=== PATIENT | male | born 1960 | race Caucasian/White ===

== ENCOUNTER 2020-03-23 15:39 | Inpatient (IN) | payer OTHER, SELFPAY ==
--- NOTE | 2020-03-23 15:43 | CT_ITS ---
EXAMINATION: CT HEAD WITHOUT CONTRAST (STROKE PROTOCOL) CLINICAL INFORMATION: Stroke protocol. Headache. TIA symptoms resolved. COMPARISON: March 11, 2016 TECHNIQUE: Contiguous axial imaging was performed from the skull base to vertex without intravenous administration of contrast. This CT examination was performed using dose optimization techniques as appropriate, variously including the following: *Automated exposure control *Adjustment of mA and/or kV according to patient size (this includes techniques or standardized protocols for targeted exams where dose is matched to indication/reason for exam; i.e. extremities or head) *Use of iterative reconstruction technique DLP: 1068 mGy-cm FINDINGS: There is no intracranial hemorrhage, hematoma, or extra-axial fluid collection. There is prominence of ventricles, sulci, and cisterns consistent with some degree of generalized atrophy. There is a old chronic left cerebellar infarct. Since study of 2015 there is a new region of diminished density with loss of drew-white matter interface involving the posterior left parietal lobe which could represent an acute evolving infarct.. No significant mass effect or midline structure shift.. There is periventricular white matter low density consistent with microangiopathy. The calvarium appears intact. There is no pneumocephalus or orbital emphysema. The visualized sinuses and middle ears and mastoid air cells show no significant mucosal thickening. There are no air-fluid levels. IMPRESSION: New region of low density with loss of drew-white matter interface involving the left posterior parietal lobe without significant mass effect since study of March 11, 2016 which may represent an evolving infarct This critical result was discussed with Dr. Burleson at 4:00 PM hours on March 23, 2020. It was ascertained that the content and urgency of the report was understood at the time of direct communication.
--- NOTE | 2020-03-23 15:43 | ECG_ITS ---
Test Reason : ? STROKE Blood Pressure : / mmHG Vent. Rate : 079 BPM Atrial Rate : 079 BPM P-R Int : 208 ms QRS Dur : 160 ms QT Int : 422 ms P-R-T Axes : 059 -84 014 degrees QTc Int : 483 ms Normal sinus rhythm Right bundle branch block Left anterior fascicular block Bifascicular block Abnormal ECG Premature atrial complexes is no longer Present Referred By: Jamison Burleson Electronically Signed By:YAYO SAUNDERS MD
[2020-03-23 16:11] LABS: Glucose, Whole Blood 312 mg/dL (60-115)
[2020-03-23 16:12] VITALS: BP 134/63; PULSE 82; RESP 16; TEMP 36.8; O2SAT 94; BMI 50.1
[2020-03-23 16:12] LABS: Prothrombin Time Whole Bld POC 12.3 sec (11.1-13.5)
--- NOTE | 2020-03-23 16:21 | ED.NEUROSD ---
HPI - Neuro Symptoms/Deficit General Chief Complaint: Stroke Stated Complaint: ?stroke, headache Time Seen by Provider: 03/23/20 15:43 Source: patient Mode of arrival: EMS Limitations: no limitations History of Present Illness HPI Narrative: Patient comes to the emergency room complaining of slurry speech and left-sided body weakness starting between 1 and 13:30 today. Patient states he was on the phone, and noticed a sudden onset of slurry speech. Patient hung up the phone, then tried to get off his couch and noticed that he had weakness in his left arm and left leg. Patient sat on the couch, called for his son. Patient states at home for couple of hours hoping that the symptoms would resolve. The symptoms did improve, patient was able to move his arm and leg, slurry speech did improve but the symptoms were not fully resolve, therefore came to the hospital Via EMS. at this time, Related Data Home Medications Medication Instructions Recorded Confirmed atorvastatin 20 mg PO DAILY 03/23/20 03/23/20 cholecalciferol (vitamin D3) 50 mcg PO DAILY 03/23/20 03/23/20 clopidogrel 75 mg PO DAILY 03/23/20 03/23/20 cyanocobalamin (vitamin B-12) 1,000 mcg PO DAILY 03/23/20 03/23/20 [Vitamin B-12] duloxetine 30 mg PO BID 03/23/20 03/23/20 furosemide 40 mg PO BID 03/23/20 03/23/20 hydroxyzine HCl 25 mg PO TID PRN 03/23/20 03/23/20 isosorbide mononitrate 60 mg PO QAM 03/23/20 03/23/20 lisinopril 40 mg PO DAILY 03/23/20 03/23/20 lorazepam 2 mg PO TID PRN 03/23/20 03/23/20 metformin 1,000 mg PO QAM 03/23/20 03/23/20 metoprolol succinate 50 mg PO DAILY 03/23/20 03/23/20 nystatin [Nyamyc] 100,000 unit TOPICAL BID 03/23/20 03/23/20 pantoprazole 40 mg PO DAILY 03/23/20 03/23/20 phenytoin sodium extended 200 mg PO DAILY 03/23/20 03/23/20 phenytoin sodium extended 400 mg PO BEDTIME 03/23/20 03/23/20 quetiapine 50 mg PO DAILY 03/23/20 03/23/20 spironolactone 25 mg PO DAILY 03/23/20 03/23/20 trazodone 100 mg PO BEDTIME 03/23/20 03/23/20 Allergies Allergy/AdvReac Type Severity Reaction Status Date / Time aspirin Allergy Severe OCCASIONAL Unverified 02/21/20 14:42 RASH / TONGUE SWELLING, Hives, throat swellig Penicillins Allergy Severe ANAPHYLAXIS Unverified 02/21/20 14:42 clindamycin Allergy Mild RASH Unverified 02/21/20 14:42 Iodinated Contrast Media Allergy Mild RASH Unverified 02/21/20 14:42 [Iodinated Contrast Media - IV Dye] latex [Latex] Allergy Mild RASH Unverified 02/21/20 14:42 amoxicillin Allergy Unknown Verified 09/22/15 00:00 bee pollen [BEE STINGS] Allergy Unknown ANAPHYLAXIS Unverified 02/21/20 14:42 penicillin V Allergy Unknown Unverified 07/03/19 00:00 povidone-iodine [Betadine] Allergy Unknown Verified 09/22/15 00:00 soap [Betadine] Allergy Unknown Verified 09/22/15 00:00 spider venom [SPIDER BITES] Allergy Unknown UNKNOWN Unverified 02/21/20 14:42 bupropion [From WELLBUTRIN] AdvReac Unknown SEIZURES Unverified 02/21/20 14:42 Latex Allergy Unknown Uncoded 09/22/15 00:00 Latex Gloves Allergy Unknown Uncoded 07/03/19 00:00 TAPE Allergy Unknown Uncoded 09/22/15 00:00 Review of Systems Review of Systems: Yes all other systems are reviewed and are negative Neurologic: Comments: complaining of slurry speech, heavy tongue sensation, left upper and lower extremity weakness PMFSH Past Medical History Medical History (Updated 03/23/20 @ 22:13 by Sarmad Rivera MD) Anxiety Arthritis Asthma Coronary artery disease Diabetes mellitus, type 2 Hypertension PTSD (post-traumatic stress disorder) Social History Social History Household Members: None Housing: Apartment Do you presently have visiting nurse or other home services: Yes (home health aide) Alcohol intake: current Alcohol intake frequency: holidays/special occasions only Smoking Status: Former smoker Tobacco Type: Cigarette Smoked in Last 30 Days: No Patient Interested in Nicotine Replacement: No Patient Given Instructions on How to Stop Smoking: No Second Hand Smoke Exposure: No Use of substances other than those prescribed or required for medical reasons: No Have you been hit, kicked, punched, or otherwise hurt by someone within the past year? If so, by whom?: No Do you feel safe in your current relationship?: No Current Relationship Is there a partner from a previous relationship who is making you feel unsafe now?: No Are you made to feel afraid or neglected: No Religion Healthcare Practices: alevism Advance Directives: No Advance Directives Information Provided: No Advance Directives on File: No Do you have thoughts of harming others: None Do you have a plan to hurt others: No Plan Recently lost weight without trying: No Physical Exam Vital Signs: Vital Signs: Vital Signs Temp Pulse Resp BP Pulse Ox 03/23/20 21:44 70 16 121/49 L 03/23/20 20:47 97.9 F 66 21 H 122/67 94 03/23/20 19:12 73 20 137/76 93 03/23/20 17:38 81 20 113/61 95 03/23/20 16:12 98.2 F 82 16 134/63 94 Body Mass Index 50.1 Const: General: cooperative Orientation/consciousness: oriented to person, oriented to place and oriented to time HENMT: Head: Yes normal to inspection Eyes: General: appearance normal, both eyes and all related structures Neck: Neck: Yes normal visual inspection Chest: Chest palpation & inspection: normal inspection of the chest Resp: Effort & Inspection: normal respiratory effort GI: Inspection: Yes normal to inspection : General: Yes no CVA tenderness Back/Spine/Pelvis: Back: no CVA tenderness Skin: General skin exam: no rashes or lesions noted Neuro: Other: patient has strength 4/5 in left upper extremity, 5/5 right upper extremity, normal strength in bilateral lower extremities, patient has a positive pronator drift on the left side General: oriented to person, oriented to place and oriented to time Extrem: General: Yes normal to inspection Psych: Appearance: grossly normal Course Course Course Narrative: I discussed the patient with Dr. Villatoro. At this time, tPA is not advised. CTA recommended. Patient states that he is allergic to the contrast, MRI was attempted, however due to the patient's weight, the MRI cannot be done. I discussed with the patient his allergies to the contrast, states he has hives. I discussed with the patient that this is the only way now the weekend tries to see if there is any blood clot causing his neurological symptoms. I offered pre treatment prior to IV contrast, patient agreed to plan. Patient being premedicated for CT a period due to system failure, the CTA has been delayed. patient stable, no worsening symptoms. Patient alert and oriented MDM - Neuro Symptoms/Deficit MDM Narrative Medical decision making narrative: disucussed with Neurology the patient's CT scan in symptoms, at this time, tPA is not advised. CT of head: New region of low density with loss of drew white matter interface involving the left posterior parietal lobe without significant mass effect CTA of head and neck: No proximal occlusion or flow-limiting stenosis, regions of encephalomalacia within the left parietal temporal lobes and right occipital lobe, no acute intracranial hemorrhage I discussed the patient with our hospitalist, patient being admitted EKG: Normal sinus, heart rate 79, QTC 483, left anterior bifascicular block Differential Diagnosis Differential diagnosis: Likely subarachnoid hemorrhage, cerebrovascular accident and transient cerebral ischemia Medical Records Attestation: I reviewed the patient's medical records. Lab Data Attestation: I reviewed the patient's lab results. Result diagrams: 03/23/20 16:06 03/23/20 16:06 Labs: Lab Results 03/23/20 03/23/20 03/23/20 Range/Units 15:48 16:00 16:06 WBC 7.6 (4.8-10.8) X10*3/uL RBC 4.80 (4.60-5.80) X10*6/uL Hgb 11.0 L (14.0-18.0) g/dl Hct 37.0 L (42-52) % MCV 77.1 L (80-98) fL MCH 22.9 L (27.0-33.0) pg MCHC 29.7 L (31.0-36.0) g/dl RDW 15.4 (11.0-16.0) % Plt Count 287 (160-400) X10*3/uL MPV 10.2 (9.4-12.4) fL Absolute Nucleated RBC 0.000 (0.0-0.012) X10*3/uL Nucleated RBC % (auto) 0.0 (0.0-0.2) /100WBC PT (10.8-13.0) SEC Whole Blood PT 12.3 (11.1-13.5) sec INR (0.9-1.1) Whole Blood INR 1.0 (0.9-1.1) APTT (24.1-38.0) SEC Sodium (135-145) mmol/L Potassium (3.3-5.1) mmol/l Chloride (96-108) mmol/L Carbon Dioxide (22-29) mmol/L Anion Gap (12-20) BUN (9-16) mg/dL Creatinine (0.5-1.4) mg/dL Estim Creat Clear Calc Estimated GFR POC Glucose 312 H (60-115) mg/dL Random Glucose (60-115) mg/dL Calcium (8.4-10.2) mg/dL Total Bilirubin (0.0-1.0) mg/dL Direct Bilirubin (0.0-0.5) mg/dL AST (5-37) U/L ALT (0-40) U/L Alkaline Phosphatase (39-117) U/L Troponin I High Sens (<3.5-35.0) ng/L B-Natriuretic Peptide (<100) pg/mL Total Protein (6.5-8.0) g/dL Albumin (3.5-5.0) g/dL Lipase (8-78) U/L Urine Color Urine Appearance Urine pH (5.0-8.0) Ur Specific [place] (1.005-1.025) Urine Protein (NEG-TRACE) MG/DL Urine Glucose (UA) (NEG) MG/DL Urine Ketones (NEG) MG/DL Urine Blood (NEG) Urine Nitrite (NEG) Ur Leukocyte Esterase (NEG) Urine RBC (0) /HPF Urine WBC (0-4) /HPF Ur Squamous Epith Cells /LPF Urine Bacteria /LPF 03/23/20 03/23/20 03/23/20 Range/Units 16:06 16:06 16:06 WBC (4.8-10.8) X10*3/uL RBC (4.60-5.80) X10*6/uL Hgb (14.0-18.0) g/dl Hct (42-52) % MCV (80-98) fL MCH (27.0-33.0) pg MCHC (31.0-36.0) g/dl RDW (11.0-16.0) % Plt Count (160-400) X10*3/uL MPV (9.4-12.4) fL Absolute Nucleated RBC (0.0-0.012) X10*3/uL Nucleated RBC % (auto) (0.0-0.2) /100WBC PT 13.0 (10.8-13.0) SEC Whole Blood PT (11.1-13.5) sec INR 1.1 (0.9-1.1) Whole Blood INR (0.9-1.1) APTT 29.5 (24.1-38.0) SEC Sodium 136 (135-145) mmol/L Potassium 3.4 (3.3-5.1) mmol/l Chloride 94 L (96-108) mmol/L Carbon Dioxide 32 H (22-29) mmol/L Anion Gap 13 (12-20) BUN 9 (9-16) mg/dL Creatinine 1.00 (0.5-1.4) mg/dL Estim Creat Clear Calc 131.7 Estimated GFR > 60 POC Glucose (60-115) mg/dL Random Glucose 335 H (60-115) mg/dL Calcium 8.8 (8.4-10.2) mg/dL Total Bilirubin 0.2 (0.0-1.0) mg/dL Direct Bilirubin 0.2 (0.0-0.5) mg/dL AST 11 (5-37) U/L ALT 9 (0-40) U/L Alkaline Phosphatase 96 (39-117) U/L Troponin I High Sens 27.1 (<3.5-35.0) ng/L B-Natriuretic Peptide 19 (<100) pg/mL Total Protein 7.0 (6.5-8.0) g/dL Albumin 3.8 (3.5-5.0) g/dL Lipase 14 (8-78) U/L Urine Color Urine Appearance Urine pH (5.0-8.0) Ur Specific [place] (1.005-1.025) Urine Protein (NEG-TRACE) MG/DL Urine Glucose (UA) (NEG) MG/DL Urine Ketones (NEG) MG/DL Urine Blood (NEG) Urine Nitrite (NEG) Ur Leukocyte Esterase (NEG) Urine RBC (0) /HPF Urine WBC (0-4) /HPF Ur Squamous Epith Cells /LPF Urine Bacteria /LPF 03/23/20 03/23/20 Range/Units 20:17 21:43 WBC (4.8-10.8) X10*3/uL RBC (4.60-5.80) X10*6/uL Hgb (14.0-18.0) g/dl Hct (42-52) % MCV (80-98) fL MCH (27.0-33.0) pg MCHC (31.0-36.0) g/dl RDW (11.0-16.0) % Plt Count (160-400) X10*3/uL MPV (9.4-12.4) fL Absolute Nucleated RBC (0.0-0.012) X10*3/uL Nucleated RBC % (auto) (0.0-0.2) /100WBC PT (10.8-13.0) SEC Whole Blood PT (11.1-13.5) sec INR (0.9-1.1) Whole Blood INR (0.9-1.1) APTT (24.1-38.0) SEC Sodium (135-145) mmol/L Potassium (3.3-5.1) mmol/l Chloride (96-108) mmol/L Carbon Dioxide (22-29) mmol/L Anion Gap (12-20) BUN (9-16) mg/dL Creatinine (0.5-1.4) mg/dL Estim Creat Clear Calc Estimated GFR POC Glucose 188 H (60-115) mg/dL Random Glucose (60-115) mg/dL Calcium (8.4-10.2) mg/dL Total Bilirubin (0.0-1.0) mg/dL Direct Bilirubin (0.0-0.5) mg/dL AST (5-37) U/L ALT (0-40) U/L Alkaline Phosphatase (39-117) U/L Troponin I High Sens (<3.5-35.0) ng/L B-Natriuretic Peptide (<100) pg/mL Total Protein (6.5-8.0) g/dL Albumin (3.5-5.0) g/dL Lipase (8-78) U/L Urine Color YELLOW Urine Appearance HAZY Urine pH 6.0 (5.0-8.0) Ur Specific [place] 1.020 (1.005-1.025) Urine Protein NEG (NEG-TRACE) MG/DL Urine Glucose (UA) NEG (NEG) MG/DL Urine Ketones NEG (NEG) MG/DL Urine Blood TRACE (NEG) Urine Nitrite POS H (NEG) Ur Leukocyte Esterase 1+ H (NEG) Urine RBC 0 (0) /HPF Urine WBC 15-29 H (0-4) /HPF Ur Squamous Epith Cells TRACE /LPF Urine Bacteria 2+ /LPF NIH Stroke Scale Level of Consciousness: Alert Level of Consciousness Questions: Answers both questions correctly Level of Consciousness Commands: Performs both tasks correctly Best Gaze: Normal Visual: No visual loss Facial Palsy: Normal Motor Arm (Right): No drift Motor Arm (Left): Some effort against gravity Motor Leg (Right): No drift Motor Leg (Left): No drift Limb Ataxia: Absent Sensory: Normal Best Language: No aphasia Dysarthia: Mild to moderate dysarthria Extinction and Inattention: No abnormality Score: 3 Discharge Plan Discharge Clinical Impression: Cerebrovascular accident Qualifiers: CVA mechanism: unspecified Qualified Code(s): I63.9 - Cerebral infarction, unspecified Patient Disposition: Admitted As Inpatient Interventions: Admission Worksheet (ED) Last Done: 03/24/20 00:19 Discharge Date/Time: 03/24/20 00:19
[2020-03-23 16:27] LABS: Mean Corpuscular HGB Conc 29.7 g/dl (31.0-36.0); Mean Corpuscular Hemoglobin 22.9 pg (27.0-33.0); Mean Corpuscular Volume 77.1 fL (80-98); Mean Platelet Volume 10.2 fL (9.4-12.4); Platelet Count 287 X10*3/uL (160-400); Red Cell Distribution Width 15.4 % (11.0-16.0); White Blood Count 7.6 X10*3/uL (4.8-10.8)
--- NOTE | 2020-03-23 16:29 | CT_ITS ---
EXAMINATION: CT ANGIOGRAM HEAD CT ANGIOGRAM NECK CLINICAL INFORMATION: Slurred speech. Left arm weakness. COMPARISON: CT head from 03/23/2020 and 12/04/2018. TECHNIQUE: Initial noncontrast drug safety specialist imaging of the head and neck was performed. Comparison is made with noncontrast head CT from earlier today. Test bolus sequences followed by intravenous administration 70 mL of Omnipaque 350. Helical imaging was performed in the axial plane from the aortic arch to the skull vertex. Delayed postcontrast imaging of the head was also performed. The data was processed at the dairy manufacturing technologist's workstation for generation of MIP sequences. Angled MIPs and volume rendered reformatted images were also generated at an offline 3D workstation. Stenoses are assessed in accordance with NASCET criteria unless otherwise indicated. DLP: 2627 mGy-cm FINDINGS: CT Head: As demonstrated on previous head CT, there are regions of encephalomalacia in the left frontotemporal lobes and right occipital lobe. No evidence of acute intracranial hemorrhage. Scattered hypoattenuation in the periventricular and deep white matter are consistent with moderate microangiopathy. No additional loss of drew-white matter differentiation. Proportional prominence of the ventricles and sulcal spaces. No evidence for obstructive hydrocephalus. No abnormal mass effect or midline shift. No extra-axial fluid collections. No pathologic intra-axial enhancement. No acute soft tissue or osseous abnormalities. The patient is edentulous. The mastoid air cells and paranasal sinuses are clear. CT Neck: The thyroid gland and remaining cervical soft tissues are within normal limits. Mild to moderate multilevel degenerative spondyloarthropathy of the cervical spine. CT Upper Chest: The visualized lung apices and upper mediastinum are within normal limits. Neck CTA: Aortic Arch: Normal contour and caliber. Classic 3 vessel branching pattern of the aortic arch. Great Vessel Origins: No significant stenosis of the branch origins. Right Common Carotid Artery: Normal opacification without focal stenosis or occlusion. Cervical Right Internal Carotid Artery: Normal opacification without focal stenosis or occlusion. Left Common Carotid Artery: Normal opacification without focal stenosis or occlusion. Cervical Left Internal Carotid Artery: Normal opacification without focal stenosis or occlusion. Cervical Right Vertebral Artery: Normal opacification without focal stenosis or occlusion. Cervical Left Vertebral Artery: Mildly dominant. Normal opacification without focal stenosis or occlusion. Brain CTA: Intracranial Internal Carotid Arteries: Mild calcific atherosclerotic disease of the intracranial internal carotid arteries without occlusion or flow-limiting stenosis. Otherwise, normal contrast opacification of the petrous, cavernous, paraophthalmic, and supraclinoid segments of the internal carotid arteries without focal stenosis. Right Anterior Cerebral Artery: Normal A1 segment. Normal opacification of the distal segments of the KATHY. Left Anterior Cerebral Artery: Normal A1 segment. Normal opacification of the distal segments of the KATHY. Anterior Communicating Artery: Normal. Trifurcation of the anterior communicating artery. Right Middle Cerebral Artery: Normal opacification of the M1 segment of the MCA without focal stenosis or occlusion. Normal arborization of the distal segments. Left Middle Cerebral Artery: Normal opacification of the M1 segment of the MCA without focal stenosis or occlusion. Normal arborization of the distal segments. Right Vertebral Artery: Normal opacification of the V4 segment. Normal opacification of the proximal segments of the posterior inferior cerebellar artery. Left Vertebral Artery: Normal opacification of the V4 segment. Normal opacification of the proximal segments of the posterior inferior cerebellar artery. Basilar Artery: Normal opacification without focal stenosis or occlusion. Normal appearance of the proximal superior cerebellar arteries. Right Posterior Cerebral Artery: Normal P1 segment. Normal opacification of the distal segments of the SPECIAL EDUCATION ADMINISTRATOR. Left Posterior Cerebral Artery: Normal P1 segment. Normal opacification of the distal segments of the SPECIAL EDUCATION ADMINISTRATOR. Dominant right-sided transverse sinus. Otherwise, normal opacification of the superior sagittal, straight, transverse, and sigmoid sinuses. IMPRESSION: 1. CTA of the head and neck without proximal occlusion or flow-limiting stenosis. 2. Regions of encephalomalacia within the left parietotemporal lobes and right occipital lobe. Moderate underlying microangiopathy. 3. No evidence of acute intracranial hemorrhage. This critical result was discussed with Dr. Gibson at 20:31 on 03/23/2020 and it was ascertained that the content and urgency of the report was understood at the time of direct communication.
[2020-03-23 16:36] LABS: INTERNATIONAL NORM RATIO 1.1 (0.9-1.1)
[2020-03-23 16:38] LABS: Partial Thromboplastin Time 29.5 SEC (24.1-38.0)
[2020-03-23 17:00] LABS: Alanine Aminotransferase 9 U/L (0-40); Albumin Level 3.8 g/dL (3.5-5.0); Alkaline Phosphatase 96 U/L (39-117); Anion Gap 13 (12-20); Aspartate Amino Transferase 11 U/L (5-37); Bilirubin Direct 0.2 mg/dL (0.0-0.5); Bilirubin Total 0.2 mg/dL (0.0-1.0); Blood Urea Nitrogen 9 mg/dL (9-16); Calcium 8.8 mg/dL (8.4-10.2); Carbon Dioxide 32 mmol/L (22-29); Chloride 94 mmol/L (96-108); Creatinine Clr Calc Pharmacy 131.7; Estimated Glomerular Filt Rate > 60; Glucose Random 335 mg/dL (60-115); Lipase 14 U/L (8-78); Potassium 3.4 mmol/l (3.3-5.1); Sodium 136 mmol/L (135-145)
[2020-03-23 17:06] LABS: B Type Natriuretic Peptide 19 pg/mL (<100); Troponin-I High Sensitivity 27.1 ng/L (<3.5-35.0)
[2020-03-23] MEDS: Atorvastatin Calcium 80 MG TABLET PO (17:37)
[2020-03-23 17:38] VITALS: BP 113/61; PULSE 81; RESP 20; O2SAT 95
--- NOTE | 2020-03-23 19:11 | PC.NURSE ---
Report taken from kari Marie RN resuming care. Pt returns from CT, awake and alert, garbled speech, denies pain VSS. Awaiting CT results.
[2020-03-23 19:12] VITALS: BP 137/76; PULSE 73; RESP 20; O2SAT 93
[2020-03-23] MEDS: LORazepam 2 MG/ML VIAL IVPUSH (19:24)
[2020-03-23] MEDS: diphenhydrAMINE HCL 50 MG/ML VIAL IVPUSH (19:24)
[2020-03-23] MEDS: methylPREDNISolone Sod Succ/PF 125 MG/2 ML VIAL IVPUSH (19:24)
[2020-03-23] MEDS: Insulin Regular, Human 100 UNIT/ML 3 ML VIAL IVPUSH (19:38)
--- NOTE | 2020-03-23 19:40 | PC.NURSE ---
Pt medicated with Insulin per EMAR. Pt sleeping in bed at this time in NAD. Continue to monitor.
--- NOTE | 2020-03-23 20:20 | PC.NURSE ---
POC 188 mg/dl. Pt sleeping in bed, very drowsy but wakes easily to voice, speaking full sentences, speech remains garbled (unknown baseline for pt). Pt able to follow commands and able to make requests. Pt aware of plan to await CT results, continue to monitor.
[2020-03-23 20:40] LABS: Glucose, Whole Blood 188 mg/dL (60-115)
[2020-03-23 20:47] VITALS: BP 122/67; PULSE 66; RESP 21; TEMP 36.6; O2SAT 94
--- NOTE | 2020-03-23 21:14 | PC.NURSE ---
MD at bedside discussing results and plan for admission.
[2020-03-23 21:44] VITALS: BP 121/49; PULSE 70; RESP 16
--- NOTE | 2020-03-23 21:47 | PC.NURSE ---
Pt requesting to use a urinal, urine sample obtained and sent. Pt reporting a posterior JUSTIN, and left sided neck pain radiating into the center of his chest and to his left shoulder. Pt states I had these when I came in. Pt also states I feel twitchy and my heart is racing. NSR on the monitor, HR 70 bpm. VSS. aware. Continue to monitor.
--- NOTE | 2020-03-23 21:48 | PC.NURSE ---
Med rec completed.
--- NOTE | 2020-03-23 21:49 | PM.IMHP ---
History of Present Illness Date of Service: 03/23/20 Chief Complaint: dysarthria and left sided weakness 59 y/o male with extensive PMHX who presents from home due to dysarthria and left sided weakness. Patient reports that starting today at 1 pm, had difficulty speaking. Patient lay down in bed for several minutes and upon waking up felt that his left side felt funny for what decided to come to the ED for further evaluation. Upon arrival patent patient vitals signs were stable, CBC and chemestry unremarkable, evidence of impaired blood glucose levels. EKG shows bifascicular block, no acute ST T wave changes. CT head showed no evidence of any acute intracranial pathology and CTA head and neck was negative for any stenosis. Patient found to be outside of the window for TPA. Neurologist contacted per ED attending who recommended no TPA and admission as of now for close monitoring. Medicine called for admission. Patient seen and evaluated at the bedside, laying down in bed in no acute distress. NIH of 3 points on evaluation. Evidence of mild dysarthria and 4/5 strenght in the LUE and LLE. Right LE and Right UE strength preserved. No sensory deficits. RLE mild erythema which is nontender, not hot on evaluation. PAST MEDICAL HISTORY: 1. Asthma. 2. Diabetes mellitus. 3. Hypertension. 4. Hyperlipidemia. 5. Seizures disorder; last seizure was many years ago. 6. History of stroke. 7. Morbid obesity. 8. Migraines. 9. PTSD. 10. History of DVT 11. Neuropathy. 12. Migraine headaches. 13. Chronic joint pain. 14. Depression. 15. Stomach ulcers. 16- CAD PAST SURGICAL HISTORY: Multiple back surgeries, right knee surgery, compound fracture of the right leg status post ORIF, right ankle fusion. Toxic habits: Report no hx of smoking, Alcohol abuse or IVDA Review of Systems Constitutional: Constitutional: Reports weakness and Reports other (difficulty speaking ) Neurologic: Reports Abnormal speech present and Reports weakness [facility] Medical History Anxiety Arthritis Asthma Coronary artery disease Diabetes mellitus, type 2 Hypertension PTSD (post-traumatic stress disorder) Functional capacity: independent ambulation Family history: reviewed and not pertinent Social History Alcohol intake: current Alcohol intake frequency: holidays/special occasions only Smoking Status: Never smoker Smoked in Last 30 Days: No Use of substances other than those prescribed or required for medical reasons: No Advance Directives: No Advance Directives Information Provided: No Meds Allergies Allergy/AdvReac Type Severity Reaction Status Date / Time aspirin Allergy Severe OCCASIONAL Unverified 02/21/20 14:42 RASH / TONGUE SWELLING, Hives, throat swellig Penicillins Allergy Severe ANAPHYLAXIS Unverified 02/21/20 14:42 clindamycin Allergy Mild RASH Unverified 02/21/20 14:42 Iodinated Contrast Media Allergy Mild RASH Unverified 02/21/20 14:42 [Iodinated Contrast Media - IV Dye] latex [Latex] Allergy Mild RASH Unverified 02/21/20 14:42 amoxicillin Allergy Unknown Verified 09/22/15 00:00 bee pollen [BEE STINGS] Allergy Unknown ANAPHYLAXIS Unverified 02/21/20 14:42 penicillin V Allergy Unknown Unverified 07/03/19 00:00 povidone-iodine [Betadine] Allergy Unknown Verified 09/22/15 00:00 soap [Betadine] Allergy Unknown Verified 09/22/15 00:00 spider venom [SPIDER BITES] Allergy Unknown UNKNOWN Unverified 02/21/20 14:42 bupropion [From WELLBUTRIN] AdvReac Unknown SEIZURES Unverified 02/21/20 14:42 Latex Allergy Unknown Uncoded 09/22/15 00:00 Latex Gloves Allergy Unknown Uncoded 07/03/19 00:00 TAPE Allergy Unknown Uncoded 09/22/15 00:00 Home Medications Medication Instructions Recorded Confirmed Type atorvastatin 1 tab PO DAILY 03/23/20 03/23/20 History cholecalciferol (vitamin D3) 1 tab PO DAILY 03/23/20 03/23/20 History clopidogrel 1 tab PO DAILY 03/23/20 03/23/20 History cyanocobalamin (vitamin B-12) 1 tab PO DAILY 03/23/20 03/23/20 History [Vitamin B-12] duloxetine 1 cap PO BID 03/23/20 03/23/20 History furosemide 1 tab PO BID 03/23/20 03/23/20 History hydroxyzine HCl 1 tab PO TID PRN 03/23/20 03/23/20 History isosorbide mononitrate 1 tab PO QAM 03/23/20 03/23/20 History lisinopril 1 tab PO DAILY 03/23/20 03/23/20 History lorazepam 1 tab PO TID PRN 03/23/20 03/23/20 History metformin 1 tab PO QAM 03/23/20 03/23/20 History metoprolol succinate 1 tab PO DAILY 03/23/20 03/23/20 History nystatin [Nyamyc] TOPICAL 03/23/20 History pantoprazole 1 tab PO DAILY 03/23/20 03/23/20 History phenytoin sodium extended PO 03/23/20 History quetiapine 1 tab PO DAILY 03/23/20 03/23/20 History spironolactone 1 tab PO DAILY 03/23/20 03/23/20 History trazodone 2 tab PO BEDTIME 03/23/20 03/23/20 History Physical Exam Vital Signs and Narrative: Vital Signs: Last Vital Signs Temp 97.9 F 03/23/20 20:47 Pulse 70 03/23/20 21:44 Resp 16 03/23/20 21:44 BP 121/49 L 03/23/20 21:44 Pulse Ox 94 03/23/20 20:47 Body Mass Index 50.1 Const: General: cooperative, healthy appearing and comfortable Orientation/consciousness: patient oriented x3 HENMT: Head: Yes normal to inspection and Yes No palpable skull fracture present Eyes: General: appearance normal, both eyes and all related structures Neck: Yes normal visual inspection Chest: Chest palpation & inspection: normal inspection of the chest Resp: Effort & Inspection: normal respiratory effort and able to speak in complete sentences Cardio: Jugular venous distension: no JVD Rate: regular rate Heart sounds: S1 normal heart sound present and S2 normal heart sound present GI: Inspection: Yes normal to inspection Skin: General skin exam: other (erythema in RLE, not tender to palpation) Neuro: General: patient oriented x3 Speech: Abnormal speech present Motor exam (neuro): Abnormal motor strength present Psych: Appearance: grossly normal Results Labs Labs: Laboratory Tests 03/23/20 03/23/20 03/23/20 15:48 16:00 16:06 WBC 7.6 RBC 4.80 Hgb 11.0 L Hct 37.0 L MCV 77.1 L MCH 22.9 L MCHC 29.7 L RDW 15.4 Plt Count 287 MPV 10.2 Absolute Nucleated RBC 0.000 Nucleated RBC % (auto) 0.0 PT Whole Blood PT 12.3 INR Whole Blood INR 1.0 APTT Sodium Potassium Chloride Carbon Dioxide Anion Gap BUN Creatinine Estim Creat Clear Calc Estimated GFR POC Glucose 312 H Random Glucose Calcium Total Bilirubin Direct Bilirubin AST ALT Alkaline Phosphatase Troponin I High Sens B-Natriuretic Peptide Total Protein Albumin Lipase 03/23/20 03/23/20 03/23/20 16:06 16:06 16:06 WBC RBC Hgb Hct MCV MCH MCHC RDW Plt Count MPV Absolute Nucleated RBC Nucleated RBC % (auto) PT 13.0 Whole Blood PT INR 1.1 Whole Blood INR APTT 29.5 Sodium 136 Potassium 3.4 Chloride 94 L Carbon Dioxide 32 H Anion Gap 13 BUN 9 Creatinine 1.00 Estim Creat Clear Calc 131.7 Estimated GFR > 60 POC Glucose Random Glucose 335 H Calcium 8.8 Total Bilirubin 0.2 Direct Bilirubin 0.2 AST 11 ALT 9 Alkaline Phosphatase 96 Troponin I High Sens 27.1 B-Natriuretic Peptide 19 Total Protein 7.0 Albumin 3.8 Lipase 14 03/23/20 20:17 WBC RBC Hgb Hct MCV MCH MCHC RDW Plt Count MPV Absolute Nucleated RBC Nucleated RBC % (auto) PT Whole Blood PT INR Whole Blood INR APTT Sodium Potassium Chloride Carbon Dioxide Anion Gap BUN Creatinine Estim Creat Clear Calc Estimated GFR POC Glucose 188 H Random Glucose Calcium Total Bilirubin Direct Bilirubin AST ALT Alkaline Phosphatase Troponin I High Sens B-Natriuretic Peptide Total Protein Albumin Lipase Assessment and Plan (1) Cerebrovascular accident: Qualifiers: CVA mechanism: unspecified Qualified Code(s): I63.9 - Cerebral infarction, unspecified Status: Acute NIH scale of 3 NPO as of now. 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 Keep BS between 140-180 mg/dl (5) Asthma: Status: Acute (6) Hypertension: Status: Acute continue with furosemide home dose continue with isosorbide home dose (Hx oif CAD) continue with lisinopril home dose continue with metoprolol home dose continue with spironolactone home dose (7) GERD (gastroesophageal reflux disease): Status: Acute continue with PPI home dose (8) Insomnia: Status: Acute continue with trazodone home dose (9) Seizures: Status: Acute Reconcile with pharmacy in am dose of phenytoin patient is on as pharmacy is unable to reconcile at present
[2020-03-23 21:52] LABS: Appearance Urine HAZY; Color Urine YELLOW; Glucose Urine UA NEG (NEG); Leukocyte Esterase Urine 1+ (NEG); Nitrite Urine POS (NEG); Urine Blood TRACE (NEG); Urine Ketones NEG (NEG); Urine Protein NEG (NEG-TRACE)
[2020-03-23 22:08] LABS: Bacteria Urine 2+ /LPF; RBC Urine 0 /HPF (0); Squamous Epithelial Cell Urine TRACE /LPF
--- NOTE | 2020-03-23 22:45 | PC.NURSE ---
This RN calling [facility] to give report, [facility] unable to take report at this time. RN to call back.
--- NOTE | 2020-03-23 22:58 | PC.NURSE ---
This RN contacting hospitalist due to UA result +nitrates, inquiring about treatment and possibly BCX/lactic. Awaiting response.
--- NOTE | 2020-03-23 23:10 | PC.NURSE ---
Report given to Deirdre BOSS. BCX and lactic to be done prior to transport to floor.
[2020-03-23 23:21] VITALS: BP 131/60; PULSE 69; RESP 16; TEMP 36.9; O2SAT 94
--- NOTE | 2020-03-23 23:26 | PC.NURSE ---
BCX and lactic obtained and sent. VSS. PCO 262 mg/dl. Awaiting transport to floor.
[2020-03-23 23:29] LABS: Glucose, Whole Blood 262 mg/dL (60-115)
[2020-03-23 23:47] LABS: Lactic Acid 3.3 mmol/L (0.5-2.0)
--- NOTE | 2020-03-23 23:49 | PC.NURSE ---
Osorio Rivera aware of increased lactic, per MD, fluid bolus to be ordered on floor. This RN calling [facility] to update RN.
[2020-03-24] VITALS (11 sets, daily range): BP systolic 103–155; BP diastolic 61–89; PULSE 60–81; RESP 18–20; TEMP 35.6–37.1; O2SAT 90–96; BMI 47.5
--- NOTE | 2020-03-24 | CT_ITS ---
EXAMINATION: CT HEAD WITHOUT CONTRAST CLINICAL INFORMATION: Question stroke. Patient unable to have MRI. COMPARISON: Previous head CTA and head CTA CTA from yesterday and older outside head CT scans most recent December 2018 TECHNIQUE: Contiguous axial imaging was performed from the skull base to vertex without intravenous administration of contrast. This CT examination was performed using dose optimization techniques as appropriate, variously including the following: *Automated exposure control *Adjustment of mA and/or kV according to patient size (this includes techniques or standardized protocols for targeted exams where dose is matched to indication/reason for exam; i.e. extremities or head) *Use of iterative reconstruction technique DLP: 1160 mGy-cm FINDINGS: There is no evidence of an extra-axial collection. There is no evidence of intra-axial or extra-axial hemorrhage. The ventricles and extra-axial CSF spaces are prominent suggestive of mild generalized atrophy. There is nonspecific periventricular white matter disease. There is an old left cerebellar infarct that appears unchanged from prior exams. There is low-attenuation seen in the left parietal lobe similar to yesterday's exam but new from older exam from December 2018 questionable for a subacute infarct. This is similar to yesterday's exam. No mass effect is see. Review at bone windows is unremarkable. The visualized paranasal sinuses, mastoid air cells and middle ears are clear. IMPRESSION: Mild generalized atrophy and nonspecific periventricular white matter disease. Old infarct or encephalomalacia in the left cerebellum similar to multiple previous exams. Stable appearance to the low-attenuation in the left parietal lobe new in the interval from December 2018 exam questionable for a subacute infarct. This is similar to yesterday's exam.
--- NOTE | 2020-03-24 00:33 | CA_ITS ---
Transthoracic Echocardiogram Patient (Last, First, Middle): Sage Bartholomew G Gender: Male Date of : 1960 Age: 59 Procedure Date: 03/24/2020 Procedure Type: Transthoracic Echocardiogram [place] [facility] [place]: 190.5 cm Weight: 172.37 kg BSA: 2.88 m2 Heart Rate: bpm BP: 137 / 74 mmHg Performance Architect: Referring MD: Sarmad Rivera MD [place] [facility] [place] Conclusions: - Normal left ventricular size and systolic function. - E/E prime ratio is between 8 and 15 consistent with indeterminate filling pressures. - Normal right ventricular cavity size and systolic function. - There is mild dilatation of the ascending aorta. - Tricuspid regurgitation envelope is inadequate for calculation of right ventricular systolic pressure. Findings Procedure Information Contrast agent, definity, is being given per protocol without apparent complications. Left Ventricle Normal left ventricular size and systolic function. There is moderately increased left ventricular wall thickness. The visually estimated ejection fraction is between 60-65%. There is no evidence of regional wall motion abnormalities. Abnormal diastolic function is noted. Spectral Doppler is indicative of an impaired relaxation filling pattern. E/E prime ratio is between 8 and 15 consistent with indeterminate filling pressures. Right Ventricle Normal right ventricular cavity size and systolic function. Atria The left atrium is normal in size. Aortic Valve Normal aortic valve structure and function. There is no aortic valve stenosis. There is no aortic valve regurgitation. Mitral Valve Likely normal mitral valve structure and function. There is no mitral valve regurgitation. There is no mitral valve stenosis. Pulmonic Valve The pulmonic valve was not well visualized. Tricuspid Valve Likely normal tricuspid valve structure and function. Tricuspid regurgitation envelope is inadequate for calculation of right ventricular systolic pressure. Indeterminate right atrial pressure. Great Vessels There is mild dilatation of the ascending aorta. The visualized portions of the pulmonary artery and branches are normal. Venous The inferior vena cava was not well visualized. Pericardium/Pleural There is no evidence of pericardial effusion. Prior Study Comparison No significant change compared to prior study dated: 12/06/2018. PA pressures could not be estimated (previously severe pulmonary hypertension was present) Measurements 2D Linear Measurements RVIDd: 3.87 RVIDd Index: 1.34 IVSd: 1.42 0.6-0.9/0.6-1.0 cm LVIDd: 4.21 3.9-5.3/4.2-5.9 cm LVIDd Index: 1.46 2.4-3.2/2.2-3.1 cm/m2 LVIDs: 3.02 2.0-3.6 cm LVPWd: 1.31 0.7-1.1 cm LA Diam: 4.00 2.7-3.8/3.0-4.0 cm LAIDs Index: 1.39 1.5-2.3 cm/m2 LV Mass: 270.02 67-162/88-224 g LV Mass Index: 93.76 43-95/49-115 g/m2 LVOT Diam: 2.30 3.0+(-)1.3 cm Mitral Valve MV Pk E: 0.74 MV PK A: 0.90 MV Decel Time: 229.00 E/A: 0.80 E'Lateral: 8.16 E'Medial: 5.77 E/E' Med: 12.80 E/E' Lat: 9.00 Aortic Valve AoV Pk Tyree: 1.55 AoV Mn Tyree: 0.98 AoV VTI: 0.25 AoV Pk Grad: 10.00 Aov Mn Grad: 5.00 FAN Cont.VTI: 3.77 LVOT LVOT Pk Tyree: 1.39 LVOT Mn Tyree: 0.98 LVOT VTI: 0.23 LVOT Pk Grad: 8.00 LVOT Mn Grad: 4.00 LVOT Diam: 2.30 LVOT Area: 4.15 Diastolic Function MV Pk E: 0.74 MV Pk A: 0.90 E/A: 0.80 E'Medial: 5.77 E/E' Med: 12.80 E' Laterial: 8.16 E/E' Lat: 9.00 Tricuspid Valve RA Press: 8.00 Great Vessels Aorta Ao Asc: 3.80 2.1-3.4 cm Ao Arch: 3.30 Updated in Other Vendor System with Status of Final Jasper Wagner MD electronically signed on 03/24/2020 5:41:23 PM with status of Final
[2020-03-24] MEDS: 0.9 % Sodium Chloride 500 ML 999 ML IVCONT (00:49)
[2020-03-24] MEDS: Heparin Sodium,Porcine 5,000 UNIT/ML VIAL 5000 UNIT SUBCUT ×4 (00:51→23:06)
[2020-03-24] MEDS: 0.9 % Sodium Chloride Flush 3 ML SYRINGE IVFLUSH ×4 (00:52→23:54)
[2020-03-24 01:25] LABS: Reflex Lactate? Lactic Acid Added
[2020-03-24] MEDS: traZODone HCL 50 MG TABLET 100 MG PO ×2 (01:31→21:04)
[2020-03-24] MEDS: DULoxetine HCl 30 MG CAPSULE.DR PO ×2 (01:31→21:04)
[2020-03-24] MEDS: Flu Vacc QS2020-21(6mos up)/PF 0.5 ML SYRINGE IM (01:32)
[2020-03-24] MEDS: LORazepam 1 MG TABLET PO ×3 (01:32→16:40)
[2020-03-24 02:12] LABS: ~Lactic Acid-LAB USE ONLY 3.5 mmol/L (0.5-2.0)
[2020-03-24 03:42] LABS: Reflex Lactate? 2 Y
[2020-03-24 04:16] LABS: MANUAL DIFF FLAG NO
[2020-03-24 04:17] LABS: Hemoglobin 10.7 g/dl (14.0-18.0); Imm Gran Abs Auto 0.01 X10*3/uL (0.00-0.03); Imm Gran Pct Auto 0.2 % (0.0-0.4); Lymphocytes Absolute Auto 0.8 X10*3/uL (1.2-4.9); Lymphocytes Percent Auto 13.4 % (20-40); Mean Corpuscular HGB Conc 29.7 g/dl (31.0-36.0); Mean Corpuscular Hemoglobin 23.1 pg (27.0-33.0); Mean Corpuscular Volume 77.8 fL (80-98); Mean Platelet Volume 9.5 fL (9.4-12.4); Monocytes Absolute Auto 0.1 X10*3/uL (0.1-1.2); Monocytes Percent Auto 2.3 % (2-11); Neutrophils Absolute Auto 4.8 X10*3/uL (2.0-8.3); Neutrophils Percent Auto 84.1 % (45-73); Platelet Count 277 X10*3/uL (160-400); Red Blood Count 4.63 X10*6/uL (4.60-5.80); Red Cell Distribution Width 15.4 % (11.0-16.0); White Blood Count 5.7 X10*3/uL (4.8-10.8)
[2020-03-24 04:34] LABS: ~Lactic Acid-LAB USE ONLY 2.7 mmol/L (0.5-2.0)
[2020-03-24 04:56] LABS: Anion Gap 15 (12-20); Blood Urea Nitrogen 11 mg/dL (9-16); Calcium 8.5 mg/dL (8.4-10.2); Carbon Dioxide 27 mmol/L (22-29); Chloride 96 mmol/L (96-108); Creatinine Clr Calc Pharmacy 152.8; Estimated Glomerular Filt Rate > 60; Glucose Random 251 mg/dL (60-115); Potassium 4.2 mmol/l (3.3-5.1); Sodium 134 mmol/L (135-145)
[2020-03-24 07:38] LABS: Glucose, Whole Blood 179 mg/dL (60-115)
[2020-03-24] MEDS: Isosorbide Mononitrate 60 MG TAB.ER.24H PO (08:02)
[2020-03-24] MEDS: Atorvastatin Calcium 20 MG TABLET PO (08:02)
[2020-03-24] MEDS: QUEtiapine Fumarate 50 MG TABLET PO (08:03)
[2020-03-24] MEDS: lisinopriL 40 MG TABLET PO (08:03)
[2020-03-24] MEDS: Clopidogrel Bisulfate 75 MG TABLET PO (08:03)
[2020-03-24] MEDS: Metoprolol Succinate ER 50 MG TAB.ER.24H PO (08:04)
[2020-03-24] MEDS: Omeprazole 40 MG CAPSULE.DR PO (08:04)
[2020-03-24] MEDS: Furosemide 40 MG TABLET PO ×2 (08:04→16:40)
[2020-03-24] MEDS: Cyanocobalamin (Vitamin B-12) 1,000 MCG TABLET 1000 MCG PO (08:04)
[2020-03-24] MEDS: Cholecalciferol (Vitamin D3) 25 MCG TABLET 50 MCG PO (08:05)
[2020-03-24] MEDS: Spironolactone 25 MG TABLET PO (08:05)
--- NOTE | 2020-03-24 08:31 | MHC.CM.PN ---
Patient lives alone alone in an apartment and is w/c bound for the most part. Patient receives a [employer] E[employer]IC BAND 5X/week for 2-3 hours/visit and his goal is to return home. CM has initiated and will follow for dc planning. Patient's Sister/Marifer is his HCP and Dr. Matheus Yo is the PCP.
--- NOTE | 2020-03-24 09:18 | P.PNNE_ITS ---
Subjective Subjective Interval History: 59 y/o obese man with h/o migraine with aura, which have included visual abnormalities, blurred vision and confusion, was talking to soemone over the phone. THe conversationm was stressful and at one point he started having difficulty speaking. He also noted a headache in arjun back of his head. His son was around who did not notice anything obvious. At one point he was repeating his words. He requested his son to call 911 and he was brought here. Headache continued all night and he still had some headaches. Speech has improved. No other symptoms were reported Physical Exam Vital Signs: Vital Signs: Vital Signs Temp Pulse Resp BP Pulse Ox 03/24/20 08:05 60 137/74 03/24/20 08:04 60 137/74 03/24/20 08:03 60 137/74 03/24/20 08:02 60 137/74 03/24/20 07:44 96.0 F L 60 20 137/74 93 03/24/20 04:00 97.0 F 64 18 144/67 H 96 03/24/20 00:37 97.3 F 73 18 155/89 H 90 L 03/23/20 23:21 98.5 F 69 16 131/60 94 03/23/20 21:44 70 16 121/49 L 03/23/20 20:47 97.9 F 66 21 H 122/67 94 03/23/20 19:12 73 20 137/76 93 03/23/20 17:38 81 20 113/61 95 03/23/20 16:12 98.2 F 82 16 134/63 94 Body Mass Index 47.5 Mental status examination: Normal attention, orientation, memory and affect Cranial Nerve examination: Pupils are equal, round and reactive to light. External ocular muscles are intact. Visual osorio are full. Face is symmetrical. Facial sensations are normal. Tongue is midline. Palate elevates symmetrically. Shoulder shrugging is normal. Hearing to bedside conversation is normal. Motor examination: DTRs are absent with flat plantars Cerebellar examination: Finger to nose is normal. Speech: Normal. Extrapyramidal system: Within normal limits. Involuntary movements: None. GENERAL APPEARANCE: Obese man, in no acute distress. HEAD: normocephalic, atraumatic. EYES: sclera non-icteric, conjunctiva clear. EARS: auditory canal clear, tympanic membrane intact, clear. NOSE: no lesions. ORAL CAVITY: gums normal, mucosa moist, no lesions. THROAT: clear. NECK/THYROID: no cervical lymphadenopathy. SKIN: Scaly rash in legs EXTREMITIES: no edema. PSYCH: alert, oriented, cognitive function intact, cooperative with exam. Objective Data Labs CBC & Chem 7: 03/24/20 04:10 03/24/20 04:10 Labs: Laboratory Results - last 24 hr 03/23/20 03/23/20 03/23/20 15:48 16:00 16:06 WBC 7.6 RBC 4.80 Hgb 11.0 L Hct 37.0 L MCV 77.1 L MCH 22.9 L MCHC 29.7 L RDW 15.4 Plt Count 287 MPV 10.2 Immature Gran % (Auto) Neut % (Auto) Lymph % (Auto) [place] % (Auto) Eos % (Auto) Baso % (Auto) Lymph # (Auto) [place] # (Auto) Eos # (Auto) Baso # (Auto) Abs Immat Gran (auto) Absolute Neuts (auto) Absolute Nucleated RBC 0.000 Nucleated RBC % (auto) 0.0 PT Whole Blood PT 12.3 INR Whole Blood INR 1.0 APTT Sodium Potassium Chloride Carbon Dioxide Anion Gap BUN Creatinine Estim Creat Clear Calc Estimated GFR POC Glucose 312 H Random Glucose Lactic Acid Lactic Acid Fup @ 2Hr Lactic Acid Fup @ 4Hr Calcium Total Bilirubin Direct Bilirubin AST ALT Alkaline Phosphatase Troponin I High Sens B-Natriuretic Peptide Total Protein Albumin Lipase Urine Color Urine Appearance Urine pH Ur Specific [place] Urine Protein Urine Glucose (UA) Urine Ketones Urine Blood Urine Nitrite Ur Leukocyte Esterase Urine RBC Urine WBC Ur Squamous Epith Cells Urine Bacteria 03/23/20 03/23/20 03/23/20 16:06 16:06 16:06 WBC RBC Hgb Hct MCV MCH MCHC RDW Plt Count MPV Immature Gran % (Auto) Neut % (Auto) Lymph % (Auto) [place] % (Auto) Eos % (Auto) Baso % (Auto) Lymph # (Auto) [place] # (Auto) Eos # (Auto) Baso # (Auto) Abs Immat Gran (auto) Absolute Neuts (auto) Absolute Nucleated RBC Nucleated RBC % (auto) PT 13.0 Whole Blood PT INR 1.1 Whole Blood INR APTT 29.5 Sodium 136 Potassium 3.4 Chloride 94 L Carbon Dioxide 32 H Anion Gap 13 BUN 9 Creatinine 1.00 Estim Creat Clear Calc 131.7 Estimated GFR > 60 POC Glucose Random Glucose 335 H Lactic Acid Lactic Acid Fup @ 2Hr Lactic Acid Fup @ 4Hr Calcium 8.8 Total Bilirubin 0.2 Direct Bilirubin 0.2 AST 11 ALT 9 Alkaline Phosphatase 96 Troponin I High Sens 27.1 B-Natriuretic Peptide 19 Total Protein 7.0 Albumin 3.8 Lipase 14 Urine Color Urine Appearance Urine pH Ur Specific [place] Urine Protein Urine Glucose (UA) Urine Ketones Urine Blood Urine Nitrite Ur Leukocyte Esterase Urine RBC Urine WBC Ur Squamous Epith Cells Urine Bacteria 03/23/20 03/23/20 03/23/20 20:17 21:43 23:15 WBC RBC Hgb Hct MCV MCH MCHC RDW Plt Count MPV Immature Gran % (Auto) Neut % (Auto) Lymph % (Auto) [place] % (Auto) Eos % (Auto) Baso % (Auto) Lymph # (Auto) [place] # (Auto) Eos # (Auto) Baso # (Auto) Abs Immat Gran (auto) Absolute Neuts (auto) Absolute Nucleated RBC Nucleated RBC % (auto) PT Whole Blood PT INR Whole Blood INR APTT Sodium Potassium Chloride Carbon Dioxide Anion Gap BUN Creatinine Estim Creat Clear Calc Estimated GFR POC Glucose 188 H Random Glucose Lactic Acid 3.3 H* Lactic Acid Fup @ 2Hr Lactic Acid Fup @ 4Hr Calcium Total Bilirubin Direct Bilirubin AST ALT Alkaline Phosphatase Troponin I High Sens B-Natriuretic Peptide Total Protein Albumin Lipase Urine Color YELLOW Urine Appearance HAZY Urine pH 6.0 Ur Specific [place] 1.020 Urine Protein NEG Urine Glucose (UA) NEG Urine Ketones NEG Urine Blood TRACE Urine Nitrite POS H Ur Leukocyte Esterase 1+ H Urine RBC 0 Urine WBC 15-29 H Ur Squamous Epith Cells TRACE Urine Bacteria 2+ 03/23/20 03/24/20 03/24/20 23:26 01:39 04:10 WBC 5.7 RBC 4.63 Hgb 10.7 L Hct 36.0 L MCV 77.8 L MCH 23.1 L MCHC 29.7 L RDW 15.4 Plt Count 277 MPV 9.5 Immature Gran % (Auto) 0.2 Neut % (Auto) 84.1 H Lymph % (Auto) 13.4 L [place] % (Auto) 2.3 Eos % (Auto) 0.0 Baso % (Auto) 0.0 Lymph # (Auto) 0.8 L [place] # (Auto) 0.1 Eos # (Auto) 0.0 Baso # (Auto) 0.0 Abs Immat Gran (auto) 0.01 Absolute Neuts (auto) 4.8 Absolute Nucleated RBC 0.000 Nucleated RBC % (auto) 0.0 PT Whole Blood PT INR Whole Blood INR APTT Sodium Potassium Chloride Carbon Dioxide Anion Gap BUN Creatinine Estim Creat Clear Calc Estimated GFR POC Glucose 262 H Random Glucose Lactic Acid Lactic Acid Fup @ 2Hr 3.5 H* Lactic Acid Fup @ 4Hr Calcium Total Bilirubin Direct Bilirubin AST ALT Alkaline Phosphatase Troponin I High Sens B-Natriuretic Peptide Total Protein Albumin Lipase Urine Color Urine Appearance Urine pH Ur Specific [place] Urine Protein Urine Glucose (UA) Urine Ketones Urine Blood Urine Nitrite Ur Leukocyte Esterase Urine RBC Urine WBC Ur Squamous Epith Cells Urine Bacteria 03/24/20 03/24/20 03/24/20 04:10 04:10 07:29 WBC RBC Hgb Hct MCV MCH MCHC RDW Plt Count MPV Immature Gran % (Auto) Neut % (Auto) Lymph % (Auto) [place] % (Auto) Eos % (Auto) Baso % (Auto) Lymph # (Auto) [place] # (Auto) Eos # (Auto) Baso # (Auto) Abs Immat Gran (auto) Absolute Neuts (auto) Absolute Nucleated RBC Nucleated RBC % (auto) PT Whole Blood PT INR Whole Blood INR APTT Sodium 134 L Potassium 4.2 D Chloride 96 Carbon Dioxide 27 Anion Gap 15 BUN 11 Creatinine 0.86 Estim Creat Clear Calc 152.8 Estimated GFR > 60 POC Glucose 179 H Random Glucose 251 H Lactic Acid Lactic Acid Fup @ 2Hr Lactic Acid Fup @ 4Hr 2.7 H* Calcium 8.5 Total Bilirubin Direct Bilirubin AST ALT Alkaline Phosphatase Troponin I High Sens B-Natriuretic Peptide Total Protein Albumin Lipase Urine Color Urine Appearance Urine pH Ur Specific [place] Urine Protein Urine Glucose (UA) Urine Ketones Urine Blood Urine Nitrite Ur Leukocyte Esterase Urine RBC Urine WBC Ur Squamous Epith Cells Urine Bacteria CT brain and CTA brain and neck: 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 Progress Note: A&P Fall Risk Details Current Medications: Current Medications Generic Name Dose Route Start Last Admin Trade Name Freq PRN Reason Stop Dose Admin Atorvastatin Calcium 20 mg 03/24/20 09:00 03/24/20 08:02 Atorvastatin Calcium 20 Mg Tablet PO 20 mg DAILY YOHAN Administration Clopidogrel Bisulfate 75 mg 03/24/20 09:00 03/24/20 08:03 Clopidogrel Bisulfate 75 Mg Tablet PO 75 mg DAILY YOHAN Administration Cyanocobalamin 1,000 mcg 03/24/20 09:00 03/24/20 08:04 Cyanocobalamin (Vitamin B-12) 1,000 Mcg Tablet PO 1,000 mcg DAILY YOHAN Administration Duloxetine HCl 30 mg 03/24/20 09:00 03/24/20 01:31 Duloxetine Hcl 30 Mg Capsule. PO 30 mg BID YOHAN Administration Furosemide 40 mg 03/24/20 08:00 03/24/20 08:04 Furosemide 40 Mg Tablet PO 40 mg BID@0800,1700 [facility] Administration Protocol Heparin Sodium (Porcine) 5,000 unit 03/24/20 01:00 03/24/20 08:01 Heparin Sodium,Porcine 5,000 Unit/Ml Vial SUBCUT 5,000 unit Q8H [facility] Administration Insulin Human Lispro 5 unit 03/24/20 07:30 03/24/20 08:18 Insulin Lispro 100 Unit/Ml 3 Ml Vial SUBCUT Not Given QIDACHS [facility] Isosorbide Mononitrate 60 mg 03/24/20 09:00 03/24/20 08:02 Isosorbide Mononitrate 60 Mg Tab.Er.24h PO 60 mg DAILY [facility] Administration Protocol Lisinopril 40 mg 03/24/20 09:00 03/24/20 08:03 Lisinopril 40 Mg Tablet PO 40 mg DAILY [facility] Administration Protocol Lorazepam 1 mg 03/24/20 00:33 03/24/20 08:15 Lorazepam 1 Mg Tablet PO 1 mg TID PRN Administration anxiety Metoprolol Succinate 50 mg 03/24/20 09:00 03/24/20 08:04 Metoprolol Succinate Er 50 Mg Tab.Er.24h PO 50 mg DAILY [facility] Administration Protocol Omeprazole 40 mg 03/24/20 09:00 03/24/20 08:04 Omeprazole 40 Mg Capsule. PO 40 mg DAILY [facility] Administration Quetiapine Fumarate 50 mg 03/24/20 09:00 03/24/20 08:03 Quetiapine Fumarate 50 Mg Tablet PO 50 mg DAILY YOHAN Administration Sodium Chloride 3 ml 03/24/20 00:33 03/24/20 08:19 0.9 % Sodium Chloride Flush 3 Ml Syringe IVFLUSH 3 ml QSHIFT YOHAN Administration Spironolactone 25 mg 03/24/20 09:00 03/24/20 08:05 Spironolactone 25 Mg Tablet PO 25 mg DAILY YOHAN Administration Protocol Trazodone HCl 100 mg 03/24/20 21:00 03/24/20 01:31 Trazodone Hcl 50 Mg Tablet PO 100 mg BEDTIME YOHAN Administration Vitamin D 50 mcg 03/24/20 09:00 03/24/20 08:05 Cholecalciferol (Vitamin D3) 25 Mcg Tablet PO 50 mcg DAILY YOHAN Administration Time Spent With Patient Time: Total time spent is greater than 50% in coordination of care (as documented) at patient's floor/unit and/or counseling patient: Impression: a: his present symptoms might be from migraine b: two brain lesions, ?subacute or chronic infarctions rec: a: MRI brain w/o to define brain lesions b: continue aspirin 81 c: prn Fiorecet for headache Time with patient: 15 - 24 minutes
--- NOTE | 2020-03-24 11:52 | ECG_ITS ---
Test Reason : CHEST PAIN Blood Pressure : / mmHG Vent. Rate : 072 BPM Atrial Rate : 072 BPM P-R Int : 226 ms QRS Dur : 148 ms QT Int : 448 ms P-R-T Axes : 054 -81 017 degrees QTc Int : 490 ms Sinus rhythm with 1st degree A-V block Left axis deviation Right bundle branch block Inferior infarct (cited on or before 04-DEC-2018) Abnormal ECG When compared with ECG of 23-MAR-2020 16:03, No significant changes seen Referred By: Darrel Guerra Electronically Signed By:YAYO SAUNDERS MD
--- NOTE | 2020-03-24 12:03 | PC.NURSE ---
pt c/o left sided achy chest pain. bp 108/71 and hr 74. poc 179. msg to dr degroot informing her, new order for trop, and ekg. wctm
[2020-03-24 12:15] LABS: Glucose, Whole Blood 174 mg/dL (60-115)
[2020-03-24 12:49] LABS: Cholesterol 172 mg/dL; HDL Cholesterol 57 mg/dL; LDL Cholesterol Calculated 92 mg/dl; Triglycerides 116 mg/dL
[2020-03-24] MEDS: oxyCODONE HCl Immed Release 5 MG TABLET PO (13:06)
[2020-03-24 13:10] LABS: Troponin-I High Sensitivity 21.9 ng/L (<3.5-35.0)
--- NOTE | 2020-03-24 14:26 | P.PNIM_ITS ---
Subjective Subjective Date of Service: 03/24/20 Interval History: patient seen and examined at bedside patient reported speech cleared Physical Exam Vital Signs: Vital Signs: Vital Signs Temp Pulse Resp BP Pulse Ox 03/24/20 12:00 97.4 F 69 20 103/66 93 03/24/20 08:05 60 137/74 03/24/20 08:04 60 137/74 03/24/20 08:03 60 137/74 03/24/20 08:02 60 137/74 03/24/20 07:44 96.0 F L 60 20 137/74 93 03/24/20 04:00 97.0 F 64 18 144/67 H 96 03/24/20 00:37 97.3 F 73 18 155/89 H 90 L 03/23/20 23:21 98.5 F 69 16 131/60 94 03/23/20 21:44 70 16 121/49 L 03/23/20 20:47 97.9 F 66 21 H 122/67 94 03/23/20 19:12 73 20 137/76 93 03/23/20 17:38 81 20 113/61 95 03/23/20 16:12 98.2 F 82 16 134/63 94 Body Mass Index 47.5 Const: General: cooperative, healthy appearing and comfortable Orientation/consciousness: patient oriented x3 HENMT: Head: Yes normal to inspection and Yes No palpable skull fracture present Eyes: General: appearance normal, both eyes and all related structures Neck: Neck: Yes normal visual inspection Chest: Chest palpation & inspection: normal inspection of the chest Resp: Effort & Inspection: normal respiratory effort and able to speak in complete sentences Cardio: Jugular venous distension: no JVD Rate: regular rate Heart sounds: S1 normal heart sound present and S2 normal heart sound present GI: Inspection: Yes normal to inspection Skin: General skin exam: other (erythema in RLE, not tender to palpation) Neuro: General: patient oriented x3 and no focal motor deficits Motor exam (neuro): 5/5 motor strength present throughout Psych: Appearance: grossly normal Objective Data Current Medications Generic Name Dose Route Start Last Admin Trade Name Freq PRN Reason Stop Dose Admin Atorvastatin Calcium 20 mg 03/24/20 09:00 03/24/20 08:02 Atorvastatin Calcium 20 Mg Tablet PO 20 mg DAILY YOHAN Administration Clopidogrel Bisulfate 75 mg 03/24/20 09:00 03/24/20 08:03 Clopidogrel Bisulfate 75 Mg Tablet PO 75 mg DAILY YOHAN Administration Cyanocobalamin 1,000 mcg 03/24/20 09:00 03/24/20 08:04 Cyanocobalamin (Vitamin B-12) 1,000 Mcg Tablet PO 1,000 mcg DAILY YOHAN Administration Duloxetine HCl 30 mg 03/24/20 09:00 03/24/20 01:31 Duloxetine Hcl 30 Mg Capsule. PO 30 mg BID YOHAN Administration Furosemide 40 mg 03/24/20 08:00 03/24/20 08:04 Furosemide 40 Mg Tablet PO 40 mg BID@0800,1700 [facility] Administration Protocol Heparin Sodium (Porcine) 5,000 unit 03/24/20 01:00 03/24/20 08:01 Heparin Sodium,Porcine 5,000 Unit/Ml Vial SUBCUT 5,000 unit Q8H [facility] Administration Insulin Human Lispro 5 unit 03/24/20 07:30 03/24/20 12:15 Insulin Lispro 100 Unit/Ml 3 Ml Vial SUBCUT Not Given QIDACHS [facility] Isosorbide Mononitrate 60 mg 03/24/20 09:00 03/24/20 08:02 Isosorbide Mononitrate 60 Mg Tab.Er.24h PO 60 mg DAILY [facility] Administration Protocol Lisinopril 40 mg 03/24/20 09:00 03/24/20 08:03 Lisinopril 40 Mg Tablet PO 40 mg DAILY [facility] Administration Protocol Lorazepam 1 mg 03/24/20 00:33 03/24/20 08:15 Lorazepam 1 Mg Tablet PO 1 mg TID PRN Administration anxiety Metoprolol Succinate 50 mg 03/24/20 09:00 03/24/20 08:04 Metoprolol Succinate Er 50 Mg Tab.Er.24h PO 50 mg DAILY [facility] Administration Protocol Omeprazole 40 mg 03/24/20 09:00 03/24/20 08:04 Omeprazole 40 Mg Capsule.Dr PO 40 mg DAILY YOHAN Administration Quetiapine Fumarate 50 mg 03/24/20 09:00 03/24/20 08:03 Quetiapine Fumarate 50 Mg Tablet PO 50 mg DAILY YOHAN Administration Sodium Chloride 3 ml 03/24/20 00:33 03/24/20 08:19 0.9 % Sodium Chloride Flush 3 Ml Syringe IVFLUSH 3 ml QSHIFT [facility] Administration Spironolactone 25 mg 03/24/20 09:00 03/24/20 08:05 Spironolactone 25 Mg Tablet PO 25 mg DAILY YOHAN Administration Protocol Trazodone HCl 100 mg 03/24/20 21:00 03/24/20 01:31 Trazodone Hcl 50 Mg Tablet PO 100 mg BEDTIME YOHAN Administration Vitamin D 50 mcg 03/24/20 09:00 03/24/20 08:05 Cholecalciferol (Vitamin D3) 25 Mcg Tablet PO 50 mcg DAILY YOHAN Administration Labs CBC & Chem 7: 03/24/20 04:10 03/24/20 04:10 Microbiology Microbiology Results: Microbiology 03/23/20 21:55 Urine clean catch - Clean Catch Midstream Urine Culture - Preliminary Gram negative nea Assessment and Plan (1) Cerebrovascular accident: Status: Acute (2) Hyperlipidemia associated with type 2 diabetes mellitus: Status: Acute (3) PTSD (post-traumatic stress disorder): Status: Acute (4) Diabetes mellitus, type 2: Status: Acute (5) Asthma: Status: Acute (6) Hypertension: Status: Acute (7) GERD (gastroesophageal reflux disease): Status: Acute (8) Insomnia: Status: Acute (9) Seizures: Status: Acute Assessment and Plan: slurred speech and left-sided weakness symptoms resolved likely TIA rule out acute stroke continue with statin and Plavix monitor neuro check CT head shows possible low-density parietal lobe seen by Neurology recommended MRI brain unable to do MRI brain as patient cannot 15 machine due to his overweight neurology recommended repeating CT head CT head and neck shows no significant stenosis history of mood disorder Continue with duloxetine Ativan home dose continue with quetiapine diabetes mellitus Insulin regimen as ordered. Keep BS between 140-180 mg/dl history of CAD continue with isosorbide continue with lisinopril continue with metoprolol continue with spironolactone history of seizure disorder continue phenytoin dvt ppx heparin subcu
--- NOTE | 2020-03-24 14:27 | MHC.STROKE ---
I MET WITH THE PATIENT TO PROVIDE STROKE EDUCATION. WE REVIEWED HIS PLAN OF CARE, HIS INDIVIDUAL RISK FACTORS FOR STROKE USING THE EDUCATION BOOKLET AND POWERPOINT HANDOUTS. I WAS ABLE TO ANSWER ALL OF HIS QUESTIONS. I WILL FOLLOW UP WITH HIM TOMORROW AFTER THE SCANS ARE REPEATED AND [facility] LABS ARE BACK.
[2020-03-24 16:46] LABS: Glucose, Whole Blood 203 mg/dL (60-115)
[2020-03-24] MEDS: Insulin Lispro 100 UNIT/ML 3 ML VIAL SUBCUT ×2 (16:54→21:03)
[2020-03-24 20:38] LABS: Glucose, Whole Blood 239 mg/dL (60-115)
[2020-03-24] MEDS: Morphine Sulfate 2 MG/ML CARTRIDGE 1 MG IVPUSH (21:03)
[2020-03-24] MEDS: diphenhydrAMINE HCL 50 MG/ML VIAL 25 MG IVPUSH (23:07)
[2020-03-25] VITALS (9 sets, daily range): BP systolic 104–138; BP diastolic 59–65; PULSE 70–81; RESP 17–20; TEMP 35.9–36.8; O2SAT 91–95
--- NOTE | 2020-03-25 | CT_ITS ---
EXAMINATION: CT ANGIOGRAM OF THE CHEST WITH AND WITHOUT CONTRAST (CT PULMONARY ANGIOGRAM FOR PE) CLINICAL INFORMATION: Chest pain. Pulmonary embolism. COMPARISON: Chest radiograph from 09/11/2019. CT chest from 12/04/2018. TECHNIQUE: Prior to contrast administration, noncontrast localization images were obtained. Subsequently, multidetector volumetric imaging was performed from the thoracic inlet to below the diaphragms following the administration of 100 mL Omnipaque 350 intravenous contrast. No contrast reaction reported. Sagittal, coronal, and MIP oblique sagittal reformatted images were obtained on the CT workstation, uploaded to PACS, and reviewed. This CT examination was performed using dose optimization techniques as appropriate, variously including the following: *Automated exposure control. *Adjustment of mA and/or kV according to patient size (this includes techniques or standardized protocols for targeted exams where dose is matched to indication/reason for exam; i.e. extremities or head). *Use of iterative reconstruction technique. Total exam dose-length product 278 mGy-cm FINDINGS: QUALITY OF STUDY/CONTRAST BOLUS: Satisfactory. PULMONARY ARTERIES: No central or segmental pulmonary emboli. THORACIC AORTA: The thoracic aorta is of normal contour and caliber. No evidence for dissection. LUNG: Minimal bilateral dependent atelectasis. There are two 0.3 cm nodules in the posterior left lower lobe that are unchanged compared to 2019 (images 274 and 350 of 624). Otherwise, no diffuse or focal lung parenchymal abnormalities. No pleural effusion or pneumothorax. The airways remain patent. MEDIASTINUM: Normal heart size. No pericardial effusion. No hilar or mediastinal lymphadenopathy. No evidence of septal bowing or right heart strain. CHEST WALL/AXILLA: No axillary or internal mammary lymphadenopathy. OSSEOUS STRUCTURES: No acute or suspicious osseous abnormality. 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 Chronic mild endplate compression deformities of T5-T11 (most notably with anterior wedge deformity of T11). UPPER ABDOMEN: The spleen is enlarged, measuring 15 cm in long axis. Otherwise, limited evaluation of the upper abdomen without demonstrated abnormalities. No reflux of contrast into the hepatic veins to suggest elevated right heart pressures. IMPRESSION: 1. No evidence of pulmonary embolism. 2. No acute CT abnormalities of the chest to explain the patient's symptoms. 3. Chronic nonspecific splenomegaly. VTE: negative
[2020-03-25 07:13] LABS: Glucose, Whole Blood 147 mg/dL (60-115)
[2020-03-25] MEDS: Heparin Sodium,Porcine 5,000 UNIT/ML VIAL 5000 UNIT SUBCUT ×3 (07:55→23:34)
[2020-03-25] MEDS: 0.9 % Sodium Chloride Flush 3 ML SYRINGE IVFLUSH ×3 (07:55→21:18)
[2020-03-25] MEDS: Metoprolol Succinate ER 50 MG TAB.ER.24H PO (07:55)
[2020-03-25] MEDS: Furosemide 40 MG TABLET PO ×2 (07:55→16:50)
[2020-03-25] MEDS: DULoxetine HCl 30 MG CAPSULE.DR PO ×2 (07:56→21:16)
[2020-03-25] MEDS: Isosorbide Mononitrate 60 MG TAB.ER.24H PO (07:56)
[2020-03-25] MEDS: Clopidogrel Bisulfate 75 MG TABLET PO (07:56)
[2020-03-25] MEDS: Spironolactone 25 MG TABLET PO (07:57)
[2020-03-25] MEDS: Omeprazole 40 MG CAPSULE.DR PO (07:57)
[2020-03-25] MEDS: Atorvastatin Calcium 20 MG TABLET PO (07:57)
[2020-03-25] MEDS: lisinopriL 40 MG TABLET PO (07:57)
[2020-03-25] MEDS: Cholecalciferol (Vitamin D3) 25 MCG TABLET 50 MCG PO (07:57)
[2020-03-25] MEDS: Cyanocobalamin (Vitamin B-12) 1,000 MCG TABLET 1000 MCG PO (07:57)
[2020-03-25] MEDS: QUEtiapine Fumarate 50 MG TABLET PO (07:58)
[2020-03-25] MEDS: LORazepam 1 MG TABLET PO (08:11)
--- NOTE | 2020-03-25 10:46 | MHC.STROKE ---
I DISCUSSED THE CT SCAN WITH DR MARTINEZ AND HE PUT IN AN ADDENDUM TODAY. I PASSED THIS INFORMATION ONTO DR LUDWIG, THEN I MET WITH THE PATIENT TO ALSO LET HIM KNOW WHAT DR MARTINEZ'S RECOMMENDATIONS ARE. I DID DISCUSS THE HEART /BRAIN CONNECTION AND THAT WE ARE STILL DETERMINING THE ETIOLOGY OF HIS TWO STROKES, A LONG-TERM RATE ANALYST IS RECOMMENDED WELL A REFERRAL TO WEIGHT MANAGEMENT AN OUTPATIENT.
[2020-03-25 11:42] LABS: Glucose, Whole Blood 144 mg/dL (60-115)
--- NOTE | 2020-03-25 12:01 | PM.CNCAR ---
History of Present Illness History of Present Illness Date of Consult: March 25, 2020 Requesting physician: Darrel Guerra Consult reason: chest pain Chief complaint: stroke Narrative: 59-year-old gentleman who is known to Dr. Velasquez in our office with background history of diastolic heart failure, obesity, obstructive sleep apnea, diabetes, PTSD, hypertension, hyperlipidemia and gastroesophageal reflux disease. He presented with left-sided arm numbness and sharp pain in the left arm along with slurred speech. His CT scan showed concern for subacute stroke. MRI could not be done due to his weight. Also last night he had some sharp left-sided chest discomfort which lasted for 10-15 minutes along with dyspnea. He since then has been doing well. He denies any similar chest pain before. He denies chest discomfort in general at home. He had history of seizure and 10 years ago when he had his 1st seizure he unfortunately injured his right ankle and by his report was severed and he underwent reconstructive surgery. Since then he stopped exercising and progressively became more sedentary to the point that he is now in a wheelchair. He denies any dyspnea or orthopnea right now. He has an aspirin allergy with anaphylaxis and has been on Plavix which he has been taking regularly. He has been experiencing palpitations once a week when he feels very apprehensive. He does not have any known history of atrial fibrillation. Review of Systems Review of Systems: Left-sided numbness which is improving. No chest pain or shortness of breath right now. Yes all other systems are reviewed and are negative PMFSH Past Medical History Medical History (Updated 03/25/20 @ 12:07 by Jasper Wagner MD) Anxiety Arthritis Asthma Coronary artery disease Diabetes mellitus, type 2 Hypertension PTSD (post-traumatic stress disorder) Functional capacity: independent ambulation Family History Family history: reviewed and not pertinent Social History Social History Household Members: None Housing: Apartment Do you presently have visiting nurse or other home services: Yes (home health aide) Alcohol intake: current Alcohol intake frequency: holidays/special occasions only Smoking Status: Former smoker Tobacco Type: Cigarette Smoked in Last 30 Days: No Patient Interested in Nicotine Replacement: No Patient Given Instructions on How to Stop Smoking: No Second Hand Smoke Exposure: No Use of substances other than those prescribed or required for medical reasons: No Currently Displaying Signs/Symptoms of Drug Intoxication Withdrawal: No Have you been hit, kicked, punched, or otherwise hurt by someone within the past year? If so, by whom?: No Do you feel safe in your current relationship?: No Current Relationship Is there a partner from a previous relationship who is making you feel unsafe now?: No Are you made to feel afraid or neglected: No [facility] Practices: evangelical Advance Directives: No Advance Directives Information Provided: No Advance Directives on File: No Do you have thoughts of harming others: None Do you have a plan to hurt others: No Plan Recently lost weight without trying: No service: No Current occupational status: disabled Meds Allergies Allergy/AdvReac Type Severity Reaction Status Date / Time aspirin Allergy Severe OCCASIONAL Verified 03/24/20 11:50 RASH / TONGUE SWELLING, Hives, throat swellig bee pollen [BEE STINGS] Allergy Severe ANAPHYLAXIS Verified 03/24/20 11:50 penicillin V Allergy Severe Hives Verified 03/24/20 11:50 Penicillins Allergy Severe ANAPHYLAXIS Verified 03/24/20 11:50 povidone-iodine [Betadine] Allergy Severe Redness of Verified 03/24/20 11:50 Skin soap [Betadine] Allergy Severe Redness of Verified 03/24/20 11:50 Skin spider venom [SPIDER BITES] Allergy Severe Hives Verified 03/24/20 11:50 amoxicillin Allergy Intermediate Hives Verified 03/24/20 11:50 clindamycin Allergy Mild RASH Verified 03/24/20 11:50 latex [Latex] Allergy Mild RASH Verified 03/24/20 11:50 bupropion [From WELLBUTRIN] AdvReac Severe SEIZURES Verified 03/24/20 11:50 Latex Allergy Severe Hives Uncoded 03/24/20 11:50 Latex Gloves Allergy Intermediate Hives Uncoded 03/24/20 11:50 TAPE Allergy Intermediate Redness of Uncoded 03/24/20 11:50 Skin Home Medications Medication Instructions Recorded Confirmed Type atorvastatin 20 mg PO DAILY 03/23/20 03/23/20 History cholecalciferol (vitamin D3) 50 mcg PO DAILY 03/23/20 03/23/20 History clopidogrel 75 mg PO DAILY 03/23/20 03/23/20 History cyanocobalamin (vitamin B-12) 1,000 mcg PO DAILY 03/23/20 03/23/20 History [Vitamin B-12] duloxetine 30 mg PO BID 03/23/20 03/23/20 History furosemide 40 mg PO BID 03/23/20 03/23/20 History hydroxyzine HCl 25 mg PO TID PRN 03/23/20 03/23/20 History isosorbide mononitrate 60 mg PO QAM 03/23/20 03/23/20 History lisinopril 40 mg PO DAILY 03/23/20 03/23/20 History lorazepam 2 mg PO TID PRN 03/23/20 03/23/20 History metformin 1,000 mg PO QAM 03/23/20 03/23/20 History metoprolol succinate 50 mg PO DAILY 03/23/20 03/23/20 History nystatin [Nyamyc] 100,000 unit TOPICAL BID 03/23/20 03/23/20 History pantoprazole 40 mg PO DAILY 03/23/20 03/23/20 History phenytoin sodium extended 200 mg PO DAILY 03/23/20 03/23/20 History phenytoin sodium extended 400 mg PO BEDTIME 03/23/20 03/23/20 History quetiapine 50 mg PO DAILY 03/23/20 03/23/20 History spironolactone 25 mg PO DAILY 03/23/20 03/23/20 History trazodone 100 mg PO BEDTIME 03/23/20 03/23/20 History Physical Exam Vital Signs: Vital Signs: Vital Signs Temp Pulse Resp BP Pulse Ox 03/25/20 07:57 70 138/61 03/25/20 07:56 70 138/61 03/25/20 07:55 70 138/61 03/25/20 07:19 98.1 F 70 20 138/61 95 03/25/20 03:42 98.3 F 71 18 134/60 95 03/24/20 23:56 98.0 F 81 18 134/61 94 03/24/20 19:10 98.7 F 80 18 115/66 93 03/24/20 15:43 97.6 F 75 18 117/71 94 Body Mass Index 47.5 Const: Other: GENERAL APPEARANCE: in no acute distress, Obese. HEENT: unremarkable. HEAD: normocephalic, atraumatic. NECK/THYROID: no carotid bruit, no jugular venous distention. SKIN: no suspicious lesions, warm and dry. HEART: no murmurs, regular rate and rhythm, S1, S2 normal. LUNGS: clear to auscultation bilaterally. ABDOMEN: normal, bowel sounds present, soft, nontender, nondistended. EXTREMITIES: no clubbing, cyanosis, or edema. PERIPHERAL PULSES: equal. NEUROLOGIC: nonfocal, alert and oriented. PSYCH: mood/affect full range. Results Labs and Meds Result diagrams: 03/24/20 04:10 03/24/20 04:10 Lab results: Laboratory Results - last 24 hr 03/24/20 03/24/20 03/24/20 04:10 11:49 12:31 POC Glucose 174 H Troponin I High Sens 21.9 Triglycerides 116 Cholesterol 172 LDL Cholesterol, Calc 92 HDL Cholesterol 57 03/24/20 03/24/20 03/25/20 16:24 20:29 07:09 POC Glucose 203 H 239 H 147 H Troponin I High Sens Triglycerides Cholesterol LDL Cholesterol, Calc HDL Cholesterol 03/25/20 11:37 POC Glucose 144 H Troponin I High Sens Triglycerides Cholesterol LDL Cholesterol, Calc HDL Cholesterol Cardiology Testing Echo: report reviewed EKG Interpretation EKG Comments: sinus rhythm, first-degree AV block, right bundle-branch block, left anterior fascicular block, cannot rule out old inferior infarct. Assessment and Plan (1) Cerebrovascular accident: Qualifiers: CVA mechanism: unspecified Qualified Code(s): I63.9 - Cerebral infarction, unspecified Status: Acute (2) Chest pain: Status: Acute (3) Hypertension: Status: Acute Pleasant 59-year-old gentleman with the multiple comorbidities who is admitted with left-sided numbness and pain and was found to have a subacute stroke. He also had slurred speech which has improved. He has known aspirin allergy and was taking Plavix at home. He has palpitations once a week at home. He does not have any history of atrial fibrillation or flutter. On telemetry there is no concern for atrial fibrillation right now. He also had left-sided sharp chest pain with dyspnea last evening. He has known history of DVT in the past. I think we should check D-dimer. if D-dimer is elevated I would do CT pulmonary angiogram to rule out pulmonary embolism. In the setting of stroke tissue factor is released and it is a prothrombotic situation. I do not think he needs stress testing based on his symptoms right now. In terms of his CVA and normal CTA showing no atherosclerotic disease in the carotids and intracranial vessels, I think he needs 30 day event monitor to make sure he does not have atrial fibrillation or atrial flutter as cause for his stroke. Continue Plavix for now. Thank you for allowing me to participate in the care of your patient. Please feel free to contact me if you have any questions.
--- NOTE | 2020-03-25 12:22 | ECG_ITS ---
Test Reason : CP Blood Pressure : / mmHG Vent. Rate : 073 BPM Atrial Rate : 073 BPM P-R Int : 228 ms QRS Dur : 150 ms QT Int : 446 ms P-R-T Axes : 065 -80 014 degrees QTc Int : 491 ms Sinus rhythm with 1st degree A-V block with Premature atrial complexes Left axis deviation Right bundle branch block Inferior infarct (cited on or before 24-MAR-2020) Abnormal ECG When compared with ECG of 24-MAR-2020 11:34, Premature atrial complexes are now Present Referred By: Darrel Guerra Electronically Signed By:YAYO SAUNDERS MD
[2020-03-25 12:27] LABS: Glucose, Whole Blood 176 mg/dL (60-115)
[2020-03-25] MEDS: Morphine Sulfate 2 MG/ML CARTRIDGE 1 MG IVPUSH (12:28)
[2020-03-25 12:32] LABS: D Dimer < 200 NG/ML
[2020-03-25] MEDS: LORazepam 1 MG TABLET 2 MG PO ×2 (14:16→21:17)
[2020-03-25 16:34] LABS: Glucose, Whole Blood 184 mg/dL (60-115)
[2020-03-25] MEDS: Insulin Lispro 100 UNIT/ML 3 ML VIAL SUBCUT ×2 (16:48→21:17)
[2020-03-25] MEDS: iohexoL 350 MG/ML 100 ML INFUS..BTL IV (17:38)
[2020-03-25] MEDS: oxyCODONE HCl Immed Release 5 MG TABLET PO (18:16)
[2020-03-25] MEDS: traZODone HCL 50 MG TABLET 100 MG PO (21:17)
[2020-03-25 21:33] LABS: Glucose, Whole Blood 188 mg/dL (60-115)
[2020-03-26] MEDS: oxyCODONE HCl Immed Release 5 MG TABLET PO ×2 (00:42→09:07)
[2020-03-26 03:34] VITALS: BP 136/70; PULSE 76; RESP 19; TEMP 36.5
[2020-03-26 08:00] VITALS: BP 129/75; PULSE 78; RESP 18; TEMP 36.6; O2SAT 92
[2020-03-26 08:10] LABS: Glucose, Whole Blood 135 mg/dL (60-115)
[2020-03-26] MEDS: DULoxetine HCl 30 MG CAPSULE.DR PO (09:07)
[2020-03-26] MEDS: Furosemide 40 MG TABLET PO (09:08)
[2020-03-26] MEDS: Omeprazole 40 MG CAPSULE.DR PO (09:08)
[2020-03-26] MEDS: Clopidogrel Bisulfate 75 MG TABLET PO (09:08)
[2020-03-26] MEDS: QUEtiapine Fumarate 50 MG TABLET PO (09:08)
[2020-03-26] MEDS: Spironolactone 25 MG TABLET PO (09:08)
[2020-03-26] MEDS: Atorvastatin Calcium 20 MG TABLET PO (09:08)
[2020-03-26] MEDS: Metoprolol Succinate ER 50 MG TAB.ER.24H PO (09:08)
[2020-03-26] MEDS: Cyanocobalamin (Vitamin B-12) 1,000 MCG TABLET 1000 MCG PO (09:08)
[2020-03-26] MEDS: Isosorbide Mononitrate 60 MG TAB.ER.24H PO (09:08)
[2020-03-26] MEDS: lisinopriL 40 MG TABLET PO (09:08)
[2020-03-26] MEDS: 0.9 % Sodium Chloride Flush 3 ML SYRINGE IVFLUSH (09:09)
[2020-03-26] MEDS: Heparin Sodium,Porcine 5,000 UNIT/ML VIAL 5000 UNIT SUBCUT (09:10)
[2020-03-26] MEDS: Cholecalciferol (Vitamin D3) 25 MCG TABLET 50 MCG PO (09:10)
--- NOTE | 2020-03-26 09:58 | PM.PNCARD ---
Subjective Subjective Interval history: No more chest pain. Will be going home today. D-dimer negative. Review of Systems Review of Systems No chest pain Yes all other systems are reviewed and are negative Constitutional: Reports weakness Reports Abnormal speech present and Reports weakness Physical Exam Vital Signs: Vital Signs Temp Pulse Resp BP Pulse Ox 03/26/20 08:00 97.9 F 78 18 129/75 92 03/26/20 03:34 97.7 F 76 19 136/70 03/25/20 23:38 96.7 F L 72 17 120/65 03/25/20 19:39 98.0 F 70 18 104/62 91 L 03/25/20 15:33 98.2 F 75 18 118/59 L 91 L 03/25/20 12:00 98.3 F 81 20 132/61 93 Body Mass Index 47.5 Const Other: GENERAL APPEARANCE: in no acute distress, obese. HEENT: unremarkable. HEAD: normocephalic, atraumatic. NECK/THYROID: no carotid bruit. SKIN: no suspicious lesions, warm and dry. HEART: no murmurs, regular rate and rhythm, S1, S2 normal. LUNGS: clear to auscultation bilaterally. ABDOMEN: normal, bowel sounds present, soft, nontender, nondistended. EXTREMITIES: no clubbing, cyanosis, or edema. PERIPHERAL PULSES: equal. NEUROLOGIC: nonfocal, alert and oriented. PSYCH: mood/affect full range. Neuro Speech: Abnormal speech present Results Labs and Meds Result diagrams: 03/24/20 04:10 03/24/20 04:10 Lab results: Laboratory Results - last 24 hr 03/25/20 03/25/20 03/25/20 11:37 11:48 12:16 D-Dimer < 200 POC Glucose 144 H 176 H Troponin I High Sens 03/25/20 03/25/20 03/25/20 16:29 18:57 20:56 D-Dimer POC Glucose 184 H 188 H Troponin I High Sens 28.0 03/26/20 08:03 D-Dimer POC Glucose 135 H Troponin I High Sens Progress Note: A&P Assessment and plan (1) Chest pain: Status: Acute (2) Cerebrovascular accident: Status: Acute (3) Palpitations: Status: Acute Assessment and Plan: pleasant 59-year-old gentleman with multiple comorbidities who is admitted with CVA. His brain imaging did not show any vascular disease. He has aspirin allergy and has been on Plavix previously. He is complaining of palpitations off and on happening 1 time a week. Telemetry did not show any evidence of AFib or a flutter. He had sharp chest pain and his D-dimer is negative. I do not think he needs further testing like CTA right now. We will arrange cardiac event monitor for him as outpatient. He will follow-up with us as outpatient after that. Thank you for allowing me to participate in the care of your patient. Please feel free to contact me if you have any questions. Fall Risk Details Current Medications: Current Medications Generic Name Dose Route Start Last Admin Trade Name Freq PRN Reason Stop Dose Admin Atorvastatin Calcium 20 mg 03/24/20 09:00 03/26/20 09:08 Atorvastatin Calcium 20 Mg Tablet PO 20 mg DAILY YOHAN Administration Clopidogrel Bisulfate 75 mg 03/24/20 09:00 03/26/20 09:08 Clopidogrel Bisulfate 75 Mg Tablet PO 75 mg DAILY YOHAN Administration Cyanocobalamin 1,000 mcg 03/24/20 09:00 03/26/20 09:08 Cyanocobalamin (Vitamin B-12) 1,000 Mcg Tablet PO 1,000 mcg DAILY YOHAN Administration Duloxetine HCl 30 mg 03/24/20 09:00 03/26/20 09:07 Duloxetine Hcl 30 Mg Capsule.Dr PO 30 mg BID YOHAN Administration Furosemide 40 mg 03/24/20 08:00 03/26/20 09:08 Furosemide 40 Mg Tablet PO 40 mg BID@0800,1700 YOHAN Administration Protocol Heparin Sodium (Porcine) 5,000 unit 03/24/20 01:00 03/26/20 09:10 Heparin Sodium,Porcine 5,000 Unit/Ml Vial SUBCUT 5,000 unit Q8H YOHAN Administration Insulin Human Lispro 5 unit 03/24/20 07:30 03/26/20 09:09 Insulin Lispro 100 Unit/Ml 3 Ml Vial SUBCUT Not Given QIDACHS YOHAN Isosorbide Mononitrate 60 mg 03/24/20 09:00 03/26/20 09:08 Isosorbide Mononitrate 60 Mg Tab.Er.24h PO 60 mg DAILY YOHAN Administration Protocol Lisinopril 40 mg 03/24/20 09:00 03/26/20 09:08 Lisinopril 40 Mg Tablet PO 40 mg DAILY YOHAN Administration Protocol Lorazepam 2 mg 03/25/20 12:21 03/25/20 21:17 Lorazepam 1 Mg Tablet PO 2 mg TID PRN Administration anxiety Metoprolol Succinate 50 mg 03/24/20 09:00 03/26/20 09:08 Metoprolol Succinate Er 50 Mg Tab.Er.24h PO 50 mg DAILY YOHAN Administration Protocol Omeprazole 40 mg 03/24/20 09:00 03/26/20 09:08 Omeprazole 40 Mg Capsule.Dr PO 40 mg DAILY YOHAN Administration Oxycodone HCl 5 mg 03/25/20 16:29 03/26/20 09:07 Oxycodone Hcl Immed Release 5 Mg Tablet PO 5 mg Q6H PRN Administration Pain, Moderate (Pain Scale 4-6 Quetiapine Fumarate 50 mg 03/24/20 09:00 03/26/20 09:08 Quetiapine Fumarate 50 Mg Tablet PO 50 mg DAILY YOHAN Administration Sodium Chloride 3 ml 03/24/20 00:33 03/26/20 09:09 0.9 % Sodium Chloride Flush 3 Ml Syringe IVFLUSH 3 ml QSHIFT YOHAN Administration Spironolactone 25 mg 03/24/20 09:00 03/26/20 09:08 Spironolactone 25 Mg Tablet PO 25 mg DAILY YOHAN Administration Protocol Trazodone HCl 100 mg 03/24/20 21:00 03/25/20 21:17 Trazodone Hcl 50 Mg Tablet PO 100 mg BEDTIME YOHAN Administration Vitamin D 50 mcg 03/24/20 09:00 03/26/20 09:10 Cholecalciferol (Vitamin D3) 25 Mcg Tablet PO 50 mcg DAILY YOHAN Administration Time Spent With Patient Time: Total time spent is greater than 50% in coordination of care (as documented) at patient's floor/unit and/or counseling patient: Time with patient: less than 15 minutes
[2020-03-26 11:18] VITALS: BP 126/59; PULSE 84; RESP 18; TEMP 36.2; O2SAT 93
[2020-03-26 11:21] LABS: Glucose, Whole Blood 165 mg/dL (60-115)
--- NOTE | 2020-03-26 11:40 | MHC.CM.PN ---
PT DCD HOME WITH RESUMPTION OF BLOOD AND PLASMA LABORATORY ASSISTANT SERVICES
--- NOTE | 2020-03-26 13:13 | P.DS_ITS ---
DS: Providers Provider Date of admission: 03/23/20 22:24 Primary care physician: Matheus Yo Consults: 03/24/20 00:33 Consult to Physician Routine Consulting Provider: Neurology Deysi dixon [facility] Reason for consultation: stroke Has provider been notified: No 03/24/20 01:07 Consult Respiratory Therapy Routine Reason for consultation: cpap at home Has provider been notified: Yes 03/24/20 07:49 Consult to Neurology Routine Consulting Provider: Neurology Deysi dixon [facility] Reason for consultation: stroke 03/25/20 10:29 Consult to Cardiology Routine Consulting Provider: Jasper Wagner Reason for consultation: chest pain , stroke concern for cardiac source DS: Diagnosis Discharge Diagnosis (1) Chest pain: Status: Acute (2) Cerebrovascular accident: Status: Acute (3) Palpitations: Status: Acute DS: Summary Hospital Course Hospital Course: 59-year-old male admitted with slurred speech and left-sided weakness admit rodrick to rule out stroke versus TIA, CT head on admission shows no acute stroke, patient was admitted to telemetry, CT head and neck shows no significant stenosis, neurology was consulted recommended MRI brain, unable to do MRI brain given patient's weight, repeat CT head was done, shows possible subacute infarct in parietal lobe, but per Neurology old stroke, cardiology was consulted as patient developed chest pain, troponin remains flat, cardiology reconciled ACS less likely and recommended loop recorder as outpatient given stroke, patient has history of DVT, CTA chest was done rule out pulmonary embolism, CT chest shows no pulmonary embolism, chest pain was resolved, patient's neurological symptoms were resolved, patient was cleared by PT and OT, patient was stable discharged home and patient will continue his medication Time Spent with Patient Time attestation: Total time spent providing and/or coordinating discharge services: Quality: Stroke Pt Provided Written Stroke Discharge Instructions: Patient given written inform ation Physical Exam Vital Signs: Vital Signs: Vital Signs Temp Pulse Resp BP Pulse Ox 03/26/20 11:18 97.2 F 84 18 126/59 L 93 03/26/20 08:00 97.9 F 78 18 129/75 92 03/26/20 03:34 97.7 F 76 19 136/70 03/25/20 23:38 96.7 F L 72 17 120/65 03/25/20 19:39 98.0 F 70 18 104/62 91 L 03/25/20 15:33 98.2 F 75 18 118/59 L 91 L Body Mass Index 47.5 Const: General: cooperative, healthy appearing and comfortable Orientation/consciousness: patient oriented x3 HENMT: Head: Yes normal to inspection and Yes No palpable skull fracture present Eyes: General: appearance normal, both eyes and all related structures Neck: Neck: Yes normal visual inspection Chest: Chest palpation & inspection: normal inspection of the chest Resp: Effort & Inspection: normal respiratory effort and able to speak in complete sentences Cardio: Jugular venous distension: no JVD Rate: regular rate Heart sounds: S1 normal heart sound present and S2 normal heart sound present GI: Inspection: Yes normal to inspection Skin: General skin exam: other (erythema in RLE, not tender to palpation) Neuro: General: patient oriented x3 and no focal motor deficits Motor exam (neuro): 5/5 motor strength present throughout Psych: Appearance: grossly normal DS: Data Data Completed and Pending Labs on day of discharge: Labs from last 24 hours 03/26/20 03/26/20 03/25/20 11:16 08:03 20:56 POC Glucose 165 H 135 H 188 H Troponin I High Sens 03/25/20 03/25/20 18:57 16:29 POC Glucose 184 H Troponin I High Sens 28.0 Preliminary micro results at discharge 03/23/20 23:15 Blood Culture - Preliminary Blood - Venous No growth after 48 hours. 03/23/20 23:15 Blood Culture - Preliminary Blood - Venous No growth after 48 hours. Discharge Plan Discharge Patient Disposition: Home, Self-Care Referrals: Matheus Yo [Primary Care Provider] - Discharge Medications: New lorazepam 2 mg tablet 2 mg PO BID Qty: 5 RF: 0 Continued furosemide 40 mg tablet 40 mg PO BID RF: 0 cyanocobalamin (vitamin B-12) [Vitamin B-12] 1,000 mcg tablet extended release 1,000 mcg PO DAILY RF: 0 atorvastatin 20 mg tablet 20 mg PO DAILY RF: 0 trazodone 50 mg tablet 100 mg PO BEDTIME RF: 0 metoprolol succinate 50 mg tablet extended release 24 hr 50 mg PO DAILY RF: 0 phenytoin sodium extended 100 mg capsule 200 mg PO DAILY RF: 0 clopidogrel 75 mg tablet 75 mg PO DAILY RF: 0 spironolactone 25 mg tablet 25 mg PO DAILY RF: 0 isosorbide mononitrate 60 mg tablet extended release 24 hr 60 mg PO QAM RF: 0 pantoprazole 40 mg tablet,delayed release (DR/EC) 40 mg PO DAILY RF: 0 metformin 1,000 mg tablet 1,000 mg PO QAM RF: 0 hydroxyzine HCl 25 mg tablet 25 mg PO TID PRN (Reason: anxiety) RF: 0 nystatin [Nyamyc] 100,000 unit/gram powder 100,000 unit topical BID RF: 0 lisinopril 40 mg tablet 40 mg PO DAILY RF: 0 duloxetine 30 mg capsule,delayed release(DR/EC) 30 mg PO BID RF: 0 quetiapine 50 mg tablet 50 mg PO DAILY RF: 0 cholecalciferol (vitamin D3) 50 mcg (2,000 unit) tablet 50 mcg PO DAILY RF: 0 phenytoin sodium extended 100 mg capsule 400 mg PO BEDTIME RF: 0 Discontinued lorazepam 2 mg tablet 2 mg PO TID PRN (Reason: anxiety) RF: 0 Discharge Orders: Discharge Order (Routine); Ordered 03/26/20 Ordered By: Darrel Guerra Activity on Discharge: As tolerated Discharge Date/Time: 03/26/20 14:28 Visit Report Forms: Patient Portal Discharge page Care Plan Goals: see discharge instructions Health Concerns: see discharge instruction Plan of Treatment: see discharge instructions
== END 2020-03-26 14:28 | disposition home or self-care (01) | DRG 45 ==
LOC: HO.ED 21:08 → HO.IMC 22:41
PROVIDERS: Emergency Medicine; Admitting Provider Internal Medicine; Emergency Provider Emergency Medicine; PCP Hospitalist; Visit Provider Internal Medicine
DX: I63.9 Cerebral infarction, unspecified (principal); E11.42 Type 2 diabetes mellitus with diabetic polyneuropathy; I50.32 Chronic diastolic (congestive) heart failure; E66.01 Morbid (severe) obesity due to excess calories; E78.5 Hyperlipidemia, unspecified; F43.10 Post-traumatic stress disorder, unspecified; K21.9 Gastro-esophageal reflux disease without esophagitis; J45.909 Unspecified asthma, uncomplicated; G47.00 Insomnia, unspecified; I25.10 Atherosclerotic heart disease of native coronary artery without angina pectoris; G40.909 Epilepsy, unspecified, not intractable, without status epilepticus; R47.81 Slurred speech; G81.94 Hemiplegia, unspecified affecting left nondominant side; Z68.42 Body mass index [BMI] 45.0-49.9, adult; Z86.718 Personal history of other venous thrombosis and embolism; Z88.0 Allergy status to penicillin; Z88.6 Allergy status to analgesic agent; Z79.02 Long term (current) use of antithrombotics/antiplatelets; Z79.84 Long term (current) use of oral hypoglycemic drugs; Z79.899 Other long term (current) drug therapy
CPT/HCPCS: 36415; 70450; 70496; 70498; 71275; 80048; 80061; 80076; 81001; 82947; 83605; 83690; 83880; 84484; 85025; 85027; 85379; 85610; 85730; 87040; 87086; 87088; 87186; 90686; 92610; 93005; 93306; 96374; 96375; 96376; 97110; 97162; 97166; 97535; 99233; 99285; J1200; J2060; J2270; J2930; Q9957

== ENCOUNTER 2020-04-16 20:35 | Emergency (ER) | payer OTHER, SELFPAY ==
--- NOTE | 2020-04-16 | ECG_ITS ---
Test Reason : TIA Blood Pressure : / mmHG Vent. Rate : 085 BPM Atrial Rate : 085 BPM P-R Int : 218 ms QRS Dur : 152 ms QT Int : 428 ms P-R-T Axes : 056 -80 010 degrees QTc Int : 509 ms Sinus rhythm with 1st degree A-V block Left axis deviation Right bundle branch block Inferior infarct (cited on or before 24-MAR-2020) Abnormal ECG When compared with ECG of 25-MAR-2020 13:46, Premature atrial complexes are no longer Present ST less depressed in Anterior leads Referred By: Generic ED Physician Electronically Signed By:YAYO SAUNDERS MD
[2020-04-16 20:38] VITALS: BP 137/96; PULSE 85; RESP 20; TEMP 37.3; O2SAT 96; BMI 47.7
[2020-04-16 20:52] LABS: Glucose, Whole Blood 204 mg/dL (60-115)
[2020-04-16 22:00] VITALS: BP 129/74; PULSE 80; RESP 16; TEMP 37.1; O2SAT 95
--- NOTE | 2020-04-16 22:42 | ED.GENADULT ---
HPI - General Adult General Chief complaint: General Medical Stated complaint: S/P TIA,SYMPTOMS RESOLVED Time Seen by Provider: 04/16/20 22:38 Source: patient Mode of arrival: ambulatory Limitations: no limitations History of Present Illness HPI narrative: Patient comes to the emergency room complaining of TIA symptoms. Patient states earlier this afternoon around 630 or 7pm, patient noticed that he could not type anything coherent in his iPad, then he tried calling his son and noticed that his speech was slurry and is on could not understand him over the phone. It lasted for about 10 minutes then self-resolved. At this time patient is asymptomatic. Patient was hospitalized 3 weeks ago for similar symptoms. A CT and CTA were within normal limits, MRI could not be done due to the patient's weight. Patient was discharged on Plavix Related Data Home Medications Medication Instructions Recorded Confirmed atorvastatin 20 mg PO DAILY 03/23/20 04/17/20 cholecalciferol (vitamin D3) 50 mcg PO DAILY 03/23/20 04/17/20 clopidogrel 75 mg PO DAILY 03/23/20 04/17/20 cyanocobalamin (vitamin B-12) 1,000 mcg PO DAILY 03/23/20 04/17/20 [Vitamin B-12] duloxetine 30 mg PO BID 03/23/20 04/17/20 furosemide 40 mg PO BID 03/23/20 04/17/20 hydroxyzine HCl 25 mg PO TID PRN 03/23/20 04/17/20 isosorbide mononitrate 60 mg PO QAM 03/23/20 04/17/20 lisinopril 40 mg PO DAILY 03/23/20 04/17/20 metformin 1,000 mg PO QAM 03/23/20 04/17/20 metoprolol succinate 50 mg PO DAILY 03/23/20 04/17/20 nystatin [Nyamyc] 100,000 unit TOPICAL BID 03/23/20 04/17/20 pantoprazole 40 mg PO DAILY 03/23/20 04/17/20 phenytoin sodium extended 200 mg PO DAILY 03/23/20 04/17/20 phenytoin sodium extended 400 mg PO BEDTIME 03/23/20 04/17/20 quetiapine 50 mg PO DAILY 03/23/20 04/17/20 spironolactone 25 mg PO DAILY 03/23/20 04/17/20 trazodone 100 mg PO BEDTIME 03/23/20 04/17/20 Previous Rx's Medication Instructions Recorded lorazepam 2 mg PO BID #5 tab 03/26/20 Allergies Allergy/AdvReac Type Severity Reaction Status Date / Time aspirin Allergy Severe OCCASIONAL Verified 03/24/20 11:50 RASH / TONGUE SWELLING, Hives, throat swellig bee pollen [BEE STINGS] Allergy Severe ANAPHYLAXIS Verified 03/24/20 11:50 penicillin V Allergy Severe Hives Verified 03/24/20 11:50 Penicillins Allergy Severe ANAPHYLAXIS Verified 03/24/20 11:50 povidone-iodine [Betadine] Allergy Severe Redness of Verified 03/24/20 11:50 Skin soap [Betadine] Allergy Severe Redness of Verified 03/24/20 11:50 Skin spider venom [SPIDER BITES] Allergy Severe Hives Verified 03/24/20 11:50 amoxicillin Allergy Intermediate Hives Verified 03/24/20 11:50 clindamycin Allergy Mild RASH Verified 03/24/20 11:50 latex [Latex] Allergy Mild RASH Verified 03/24/20 11:50 bupropion [From WELLBUTRIN] AdvReac Severe SEIZURES Verified 03/24/20 11:50 Latex Allergy Severe Hives Uncoded 03/24/20 11:50 Latex Gloves Allergy Intermediate Hives Uncoded 03/24/20 11:50 TAPE Allergy Intermediate Redness of Uncoded 03/24/20 11:50 Skin Review of Systems Review of Systems: Constitutional : No Weight loss, No Fever, No Chills, No Night Sweats, No Fatigue, No Malaise ENT/Mouth : No Hearing loss, No Ear Pain, No Nasal Congestion, No Sinus Pain, No Hoarseness, No sore throat, No Rhinorrhea, No Swallowing Difficulty Eyes: No Eye Pain, No Swelling, No Redness, No Foreign Body, No Discharge, No Vision Changes Cardiovascular : No Chest Pain, No SOB, No Dyspnea on Exertion, No Orthopnea, No Edema, No Palpitations Respiratory : No Cough, No Sputum, No Wheezing, No Smoke Exposure, No Dyspnea Gastrointestinal : No Nausea, No Vomiting, No Diarrhea, No Constipation, No abdominal Pain, No Hematochezia, No Melena Genitourinary : no irregular bleeding, No Dysuria, No Urinary Frequency, No Hematuria, No Urinary Incontinence, No Urgency, No Flank Pain, No Urinary Flow Changes, No Hesitancy Musculoskeletal : No joint pain, No Myalgias, No Joint Swelling Skin : No Skin Lesions, No rash Neuro : earlier today patient had slurry speech, unable to fernandez understandable words while trying to text Psych : No Anxiety/Panic, No Depression, No SI/HI/AH/VH, No Social Issues, Heme/Lymph: No Bruising, No Bleeding,No Lymphadenopathy Endocrine : No Polyuria, No Polydipsia, No Temperature Intolerance COUNT INCLUDES THE [facility] Past Medical History Medical History Anxiety Arthritis Asthma Coronary artery disease Diabetes mellitus, type 2 Hypertension Obesity PTSD (post-traumatic stress disorder) TIA (transient ischemic attack) Social History Social History Household Members: None Housing: Apartment Alcohol intake: current Alcohol intake frequency: holidays/special occasions only Smoking Status: Former smoker Tobacco Type: Cigarette Second Hand Smoke Exposure: No Advance Directives: No Advance Directives Information Provided: Yes service: No Current occupational status: disabled Physical Exam Vital Signs: Vital Signs: Last Vital Signs Temp 98.0 F 04/17/20 06:00 Pulse 81 04/17/20 06:00 Resp 18 04/17/20 06:00 BP 128/71 04/17/20 06:00 Pulse Ox 99 04/17/20 06:00 Body Mass Index 47.7 Appearance: Alert. Oriented X3. No acute distress. Eyes: Pupils equal, round and reactive to light. ENT: Pharynx normal. Neck: Normal inspection. Neck supple. No lymph nodes noted. No crepitus CVS: Normal heart rate and rhythm. Pulses normal. Normal S1 and S2 Respiratory: No respiratory distress. Breath sounds normal. No Wheezing. No rales Abdomen: Soft and nontender. No rigidity. No distention. good BS x4, morbidly obese Skin: Skin warm and dry. Normal skin color. Normal skin turgor. Extremities: No lower extremity edema. No lower extremity edema. No Lacerations. No Rash Neuro: Oriented X 3. No motor deficit. No sensory deficit. Moving all extermities. No slurred speech.NIH score 0 Course Course Course Narrative: I discussed the CT and the CTA with Dr. Villatoro. At this time, he does not have any specific recommendations whether the patient needs to be admitted or not. He does recommend that the patient gets an MRI. As mentioned before , patient was not able to get an MRI and his last visit due to at a weight limit on the MRI table. I discussed with Dr. Villatoro if I should transfer the patient to [facility] [place] to get an MRI or have him follow up since he already had a thorough workup [address] Villatoro did not have any specific recommendations. I discussed the above-mentioned with the patient, patient states that he does not want to be admitted here or in [facility] [place]. Patient really wants to go home. I discussed with the patient that it is concerning that he has had 2 TIAs in 3 weeks despite being on Plavix. 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 Patient states that in his experience, his referrals are done pretty quickly through [facility] [place]. Again, I recommended that the patient be transferred since the MRI can be done faster even today, patient declined, and understands that reoccurred MRIs are precursor to a stroke. Since the patient has been in the emergency room, patient has been asymptomatic. Furthermore, I discussed with the patient that the CTA of head and neck initial read is negative, however the neuro are radiologist has not read yet which will be the final read approximately at 08:00, patient states that he does not want to wait for this either. Medical Decision Making Lab Data Result diagrams: 04/16/20 23:38 04/16/20 23:38 Labs: Lab Results 04/16/20 04/16/20 04/16/20 Range/Units 20:41 22:55 23:38 WBC 7.0 (4.8-10.8) X10*3/uL RBC 4.48 L (4.60-5.80) X10*6/uL Hgb 10.2 L (14.0-18.0) g/dl Hct 35.3 L (42-52) % MCV 78.8 L (80-98) fL MCH 22.8 L (27.0-33.0) pg MCHC 28.9 L (31.0-36.0) g/dl RDW 16.4 H (11.0-16.0) % Plt Count 283 (160-400) X10*3/uL MPV 10.0 (9.4-12.4) fL Immature Gran % (Auto) 0.3 (0.0-0.4) % Neut % (Auto) 77.5 H (45-73) % Lymph % (Auto) 15.4 L (20-40) % [place] % (Auto) 6.4 (2-11) % Eos % (Auto) 0.3 (0-4) % Baso % (Auto) 0.1 (0-2) % Lymph # (Auto) 1.1 L (1.2-4.9) X10*3/uL [place] # (Auto) 0.5 (0.1-1.2) X10*3/uL Eos # (Auto) 0.0 (0.0-0.4) X10*3/uL Baso # (Auto) 0.0 (0.0-0.2) X10*3/uL Abs Immat Gran (auto) 0.02 (0.00-0.03) X10*3/uL Absolute Neuts (auto) 5.4 (2.0-8.3) X10*3/uL Absolute Nucleated RBC 0.000 (0.0-0.012) X10*3/uL Nucleated RBC % (auto) 0.0 (0.0-0.2) /100WBC PT (10.8-13.0) SEC INR (0.9-1.1) Sodium (135-145) mmol/L Potassium (3.3-5.1) mmol/l Chloride (96-108) mmol/L Carbon Dioxide (22-29) mmol/L Anion Gap (12-20) BUN (9-16) mg/dL Creatinine (0.5-1.4) mg/dL Estim Creat Clear Calc Estimated GFR POC Glucose 204 H 190 H (60-115) mg/dL Random Glucose (60-115) mg/dL Calcium (8.4-10.2) mg/dL 04/16/20 04/16/20 Range/Units 23:38 23:38 WBC (4.8-10.8) X10*3/uL RBC (4.60-5.80) X10*6/uL Hgb (14.0-18.0) g/dl Hct (42-52) % MCV (80-98) fL MCH (27.0-33.0) pg MCHC (31.0-36.0) g/dl RDW (11.0-16.0) % Plt Count (160-400) X10*3/uL MPV (9.4-12.4) fL Immature Gran % (Auto) (0.0-0.4) % Neut % (Auto) (45-73) % Lymph % (Auto) (20-40) % [place] % (Auto) (2-11) % Eos % (Auto) (0-4) % Baso % (Auto) (0-2) % Lymph # (Auto) (1.2-4.9) X10*3/uL [place] # (Auto) (0.1-1.2) X10*3/uL Eos # (Auto) (0.0-0.4) X10*3/uL Baso # (Auto) (0.0-0.2) X10*3/uL Abs Immat Gran (auto) (0.00-0.03) X10*3/uL Absolute Neuts (auto) (2.0-8.3) X10*3/uL Absolute Nucleated RBC (0.0-0.012) X10*3/uL Nucleated RBC % (auto) (0.0-0.2) /100WBC PT 12.4 (10.8-13.0) SEC INR 1.0 (0.9-1.1) Sodium 138 (135-145) mmol/L Potassium 3.8 (3.3-5.1) mmol/l Chloride 97 (96-108) mmol/L Carbon Dioxide 27 (22-29) mmol/L Anion Gap 18 (12-20) BUN 13 (9-16) mg/dL Creatinine 0.81 (0.5-1.4) mg/dL Estim Creat Clear Calc 162.4 Estimated GFR > 60 POC Glucose (60-115) mg/dL Random Glucose 206 H (60-115) mg/dL Calcium 8.2 L (8.4-10.2) mg/dL Discharge Plan Discharge Clinical Impression: Brain TIA Patient Disposition: Home, Self-Care Instructions: Transient Ischemic Attack (ED) Additional Instructions: Please call your PCP/tilt wall supervisor today, since you need an urgent referral for an open MRI of your brain Prescriptions: No Action furosemide 40 mg tablet 40 mg PO BID RF: 0 cyanocobalamin (vitamin B-12) [Vitamin B-12] 1,000 mcg tablet extended release 1,000 mcg PO DAILY RF: 0 atorvastatin 20 mg tablet 20 mg PO DAILY RF: 0 trazodone 50 mg tablet 100 mg PO BEDTIME RF: 0 metoprolol succinate 50 mg tablet extended release 24 hr 50 mg PO DAILY RF: 0 phenytoin sodium extended 100 mg capsule 200 mg PO DAILY RF: 0 clopidogrel 75 mg tablet 75 mg PO DAILY RF: 0 spironolactone 25 mg tablet 25 mg PO DAILY RF: 0 isosorbide mononitrate 60 mg tablet extended release 24 hr 60 mg PO QAM RF: 0 pantoprazole 40 mg tablet,delayed release (DR/EC) 40 mg PO DAILY RF: 0 metformin 1,000 mg tablet 1,000 mg PO QAM RF: 0 hydroxyzine HCl 25 mg tablet 25 mg PO TID PRN (Reason: anxiety) RF: 0 nystatin [Nyamyc] 100,000 unit/gram powder 100,000 unit topical BID RF: 0 lisinopril 40 mg tablet 40 mg PO DAILY RF: 0 duloxetine 30 mg capsule,delayed release(DR/EC) 30 mg PO BID RF: 0 quetiapine 50 mg tablet 50 mg PO DAILY RF: 0 cholecalciferol (vitamin D3) 50 mcg (2,000 unit) tablet 50 mcg PO DAILY RF: 0 phenytoin sodium extended 100 mg capsule 400 mg PO BEDTIME RF: 0 lorazepam 2 mg tablet 2 mg PO BID Qty: 5 RF: 0 Interventions: ED Discharge Assessment Last Done: 04/17/20 06:31 Discharge Date/Time: 04/17/20 06:24
[2020-04-16 23:02] LABS: Glucose, Whole Blood 190 mg/dL (60-115)
[2020-04-16 23:44] LABS: MANUAL DIFF FLAG NO
[2020-04-16 23:46] LABS: Basophils Percent Auto 0.1 % (0-2); Eosinophils Percent Auto 0.3 % (0-4); Hematocrit 35.3 % (42-52); Hemoglobin 10.2 g/dl (14.0-18.0); Imm Gran Abs Auto 0.02 X10*3/uL (0.00-0.03); Imm Gran Pct Auto 0.3 % (0.0-0.4); Lymphocytes Absolute Auto 1.1 X10*3/uL (1.2-4.9); Lymphocytes Percent Auto 15.4 % (20-40); Mean Corpuscular HGB Conc 28.9 g/dl (31.0-36.0); Mean Corpuscular Hemoglobin 22.8 pg (27.0-33.0); Mean Corpuscular Volume 78.8 fL (80-98); Monocytes Absolute Auto 0.5 X10*3/uL (0.1-1.2); Monocytes Percent Auto 6.4 % (2-11); Neutrophils Absolute Auto 5.4 X10*3/uL (2.0-8.3); Neutrophils Percent Auto 77.5 % (45-73); Platelet Count 283 X10*3/uL (160-400); Red Blood Count 4.48 X10*6/uL (4.60-5.80); Red Cell Distribution Width 16.4 % (11.0-16.0)
[2020-04-16 23:51] LABS: Prothrombin Time 12.4 SEC (10.8-13.0)
[2020-04-17] VITALS: BP 142/78; PULSE 81; RESP 18; TEMP 36.8; O2SAT 97
[2020-04-17 00:14] LABS: Anion Gap 18 (12-20); Blood Urea Nitrogen 13 mg/dL (9-16); Calcium 8.2 mg/dL (8.4-10.2); Carbon Dioxide 27 mmol/L (22-29); Chloride 97 mmol/L (96-108); Creatinine Clr Calc Pharmacy 162.4; Estimated Glomerular Filt Rate > 60; Glucose Random 206 mg/dL (60-115); Potassium 3.8 mmol/l (3.3-5.1); Sodium 138 mmol/L (135-145)
--- NOTE | 2020-04-17 00:20 | CT_ITS ---
EXAMINATION: CT HEAD WITHOUT CONTRAST CLINICAL INFORMATION: TIA symptoms. Difficulty speaking. COMPARISON: 03/24/2020. TECHNIQUE: Contiguous helical images of the brain were obtained without IV contrast. Multiplanar reconstructions were performed. DLP: 1218 mGy-cm. FINDINGS: There are no pathologic extra-axial fluid collections. The lateral, third, fourth ventricles are prominent, though stable and concordant with the appearance of the sulci. There is no evidence for acute intraparenchymal hemorrhage or infarct. There is neither mass nor mass effect. There is a stable posterior left parietal lobe subcortical area of low-attenuation indicative of a chronic infarction. There is a stable left cerebellar chronic infarction. There is no shift of midline structures. The paranasal sinuses and mastoid air cells are clear. There are no osseous lesions. CT/CT head/brain wo con IMPRESSION: No evidence for acute intracranial injury. Manifestations of generalized atrophy, slightly advanced in consideration of the patient's age, though stable. Automated exposure control (Care Dose) Adjustment of the mA and/or kv according to patient size (this includes techniques or standardized protocols for targeted exams where dose is matched to indication / reason for exam; i.e. extremities or head).
--- NOTE | 2020-04-17 00:20 | CT_ITS ---
EXAMINATION: CT ANGIOGRAM NECK WITH CONTRAST CT ANGIOGRAM BRAIN WITH CONTRAST CLINICAL INFORMATION: TIA. Slurred speech. COMPARISON: Head CT 04/17/2020. CTA head and neck 03/23/2020. TECHNIQUE: Test bolus sequences followed by intravenous administration 70 mL of Omnipaque 350. Helical imaging was performed in the axial plane from the thoracic inlet to the skull vertex. Delayed postcontrast imaging of the head was also performed. The data was processed at the lead nuclear medicine technologist workstation for generation of MIP sequences. Angled MIPs and volume rendered reformatted images were also generated at an offline 3D workstation. Stenoses are assessed in accordance with NASCET criteria unless otherwise indicated. This CT examination was performed using dose optimization techniques as appropriate, variously including the following: *Automated exposure control *Adjustment of mA and/or kV according to patient size (this includes techniques or standardized protocols for targeted exams where dose is matched to indication/reason for exam; i.e. extremities or head) *Use of iterative reconstruction technique DLP: 3282 mGy-cm FINDINGS: Head CT: On the immediate postcontrast images there is limited evaluation of the parenchyma. No gross hemorrhage is seen. There is a chronic infarction are noted within the left parietal lobe, right occipital lobe, and left inferior cerebellum. Background changes of chronic microangiopathy are noted. No mass effect, midline shift, or hydrocephalus. The paranasal sinuses and mastoid air cells are grossly clear. 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 Neck CTA: The aortic arch and great vessel origins are patent. The bilateral common and internal carotid arteries are patent. The bilateral vertebral arteries are codominant and patent. Head CTA: No proximal vessel occlusion is seen. The anterior and posterior circulations are widely patent. No significant stenosis or aneurysm is seen. Non-vascular findings: No neck mass or fluid collection is seen. There is limited evaluation of the lung parenchyma but appears grossly normal. CT/CT angio head neck IMPRESSION: No significant stenosis or occlusion within the major head or neck arteries. Areas of chronic infarction are again demonstrated as detailed above. Preliminary interpretation provided by Dr. Damico on 04/17/2020 at 1:35 AM: Preliminary reading -- No acute dissection, aneurysm or embolism. Final reading to be provided by Neuroradiology in the AM.
[2020-04-17] MEDS: iohexoL 350 MG/ML 100 ML INFUS..BTL 70 ML IV (00:43)
[2020-04-17 02:00] VITALS: BP 138/78; PULSE 78; RESP 18; O2SAT 96
[2020-04-17 04:00] VITALS: BP 132/72; PULSE 72; RESP 18; TEMP 36.6; O2SAT 98
[2020-04-17 06:00] VITALS: BP 128/71; PULSE 81; RESP 18; TEMP 36.7; O2SAT 99
== END 2020-04-17 06:24 | disposition home or self-care (01) ==
PROVIDERS: Emergency Provider Emergency Medicine; PCP Hospitalist
DX: G45.9 Transient cerebral ischemic attack, unspecified (principal); R47.81 Slurred speech; I10 Essential (primary) hypertension; E11.9 Type 2 diabetes mellitus without complications; F17.210 Nicotine dependence, cigarettes, uncomplicated; Z71.6 Tobacco abuse counseling; Z79.899 Other long term (current) drug therapy
CPT/HCPCS: 36415; 70450; 70496; 70498; 80048; 82947; 85025; 85610; 93005; 99284; Q9967

== ENCOUNTER 2021-01-29 12:06 | Outpatient (REF) | payer OTHER, SELFPAY ==
[2021-01-29 12:13] LABS: MANUAL DIFF FLAG NO
[2021-01-29 12:24] LABS: Basophils Percent Auto 0.2 % (0-2); Eosinophils Absolute Auto 0.1 X10*3/uL (0.0-0.4); Eosinophils Percent Auto 2.2 % (0-4); Hematocrit 32.2 % (42-52); Hemoglobin 8.6 g/dl (14.0-18.0); Imm Gran Abs Auto 0.01 X10*3/uL (0.00-0.03); Imm Gran Pct Auto 0.2 % (0.0-0.4); Lymphocytes Percent Auto 18.2 % (20-40); Mean Corpuscular HGB Conc 26.7 g/dl (31.0-36.0); Mean Corpuscular Hemoglobin 21.5 pg (27.0-33.0); Mean Corpuscular Volume 80.5 fL (80-98); Mean Platelet Volume 10.4 fL (9.4-12.4); Monocytes Absolute Auto 0.3 X10*3/uL (0.1-1.2); Monocytes Percent Auto 5.3 % (2-11); Neutrophils Percent Auto 73.9 % (45-73); Platelet Count 290 X10*3/uL (160-400); Red Cell Distribution Width 20.5 % (11.0-16.0); White Blood Count 5.4 X10*3/uL (4.8-10.8)
[2021-01-29 12:44] LABS: Estimated Average Glucose 174 mg/dL; Hemoglobin A1c % 7.7 %
[2021-01-29 12:51] LABS: Calcium 8.1 mg/dL (8.4-10.2)
[2021-01-29 13:00] LABS: Anion Gap 12 (12-20); Blood Urea Nitrogen 11 mg/dL (9-16); Carbon Dioxide 32 mmol/L (22-29); Chloride 102 mmol/L (96-108); Estimated Glomerular Filt Rate > 60; Glucose Random 224 mg/dL (60-115); Potassium 4.7 mmol/L (3.3-5.1); Sodium 141 mmol/L (135-145)
[2021-01-29 13:32] LABS: Magnesium 1.4 mg/dL (1.6-2.6)
== END 2021-01-29 12:07 | disposition home or self-care (01) ==
LOC: HO.HVNA 12:06
PROVIDERS: Visit Provider Hospitalist
DX: E11.40 Type 2 diabetes mellitus with diabetic neuropathy, unspecified (principal); I50.30 Unspecified diastolic (congestive) heart failure
CPT/HCPCS: 36415; 80048; 83036; 83735; 85025

== ENCOUNTER 2022-04-08 14:07 | Emergency (ER) | payer OTHER, SELFPAY ==
--- NOTE | ~2022-04-08 | XR_ITS ---
EXAMINATION: XR CHEST CLINICAL INFORMATION: Short of breath COMPARISON: 09/11/2019 TECHNIQUE: Frontal view of the chest was obtained. FINDINGS: Lung volumes are low. No consolidation, edema, or effusion. No pneumothorax. The cardiomediastinal silhouette remains prominent. XR/XR chest 1V IMPRESSION: Low lung volumes. No acute pulmonary finding.
--- NOTE | ~2022-04-08 | XR_ITS ---
EXAMINATION: XR LUMBOSACRAL SPINE CLINICAL INFORMATION: Fall COMPARISON: None TECHNIQUE: 3 views of the lumbar spine. 5 images. FINDINGS: Lateral imaging is suboptimal due to body habitus. Visualization is limited. No acute fracture or subluxation. Vertebral body height and alignment maintained. Disc space narrowing at L5-S1 noted with vacuum disc phenomenon. Small endplate osteophytes at this level. The sacroiliac joints are symmetric. The visualized sacrum is grossly intact. Normal bowel gas pattern. Degenerative changes of the right hip partially visualized. XR/XR lumbar spine 2-3V IMPRESSION: No acute fracture or malalignment. Degenerative changes at L5-S1.
[2022-04-08 14:19] VITALS: BP 114/80; PULSE 92; O2SAT 90
[2022-04-08 14:22] VITALS: BP 113/61; PULSE 100; RESP 18; TEMP 37.3; O2SAT 92
[2022-04-08 14:24] VITALS: BP 113/61; PULSE 97; RESP 18; TEMP 37.3; O2SAT 91; BMI 47.5
[2022-04-08 14:36] LABS: Glucose, Whole Blood 386 mg/dL (60-115)
--- NOTE | 2022-04-08 14:37 | ED_ITS ---
HPI - General Adult General Chief complaint: Fall Stated complaint: ROLL OUT OF BED,NO INJURY, HIGH BS 483 Time Seen by Provider: 04/08/22 14:23 Source: patient, EMS, RN notes reviewed and old records reviewed Mode of arrival: EMS Limitations: no limitations History of Present Illness HPI narrative: 61-year-old male with past medical history of morbid obesity, CVA, hyperlipidemia, diabetes type 2, GERD, asthma, PTSD, hypertension was brought to ED via ambulance after sustaining a fall. Patient reports that he was trying to get back to bed after eating lunch and when he was sitting up in bed he heard doorbell rang. Patient was trying to get up felt weakness in his bilateral lower extremities and said down in the front of the bed. Patient reports that he did not hit his head or his back. Patient states that he set on his buttocks, denies pain to his coccyx. Patient denies urinary or fecal incontinence. Patient denies any dizziness when he was falling down. However he does reports that when he was trying to get back to his room in the wheelchair pushing himself backwards he felt little out of breath. His initial O2 saturations in the emergency department was 80% on room air. Patient reports that he usually has low O2 sats. No recorded history of COPD. Patient denies any cough, fever, SOB, weakness, dizziness, CP, PND, presyncope or syncope. Patient reports that he has right lower extremity cellulitis that has been watched by his PCP. Patient is not on any antibiotics for it. Patient states that he is diabetic and his blood sugars usually run high. Patient just had lunch at 13:00. Blood sugar in the ED 386 Related Data Home Medications Medication Instructions Recorded Confirmed atorvastatin 20 mg tablet 20 mg PO DAILY 03/23/20 04/17/20 cholecalciferol (vitamin D3) 50 50 mcg PO DAILY 03/23/20 04/17/20 mcg (2,000 unit) tablet clopidogrel 75 mg tablet 75 mg PO DAILY 03/23/20 04/17/20 cyanocobalamin (vitamin B-12) 1,000 mcg PO DAILY 03/23/20 04/17/20 1,000 mcg tablet,extended release (Vitamin B-12 ER) duloxetine 30 mg capsule,delayed 30 mg PO BID 03/23/20 04/17/20 release furosemide 40 mg tablet 40 mg PO BID 03/23/20 04/17/20 hydroxyzine HCl 25 mg tablet 25 mg PO TID PRN anxiety 03/23/20 04/17/20 isosorbide mononitrate 60 mg 60 mg PO QAM 03/23/20 04/17/20 tablet,extended release 24 hr lisinopril 40 mg tablet 40 mg PO DAILY 03/23/20 04/17/20 metformin 1,000 mg tablet 1,000 mg PO QAM 03/23/20 04/17/20 metoprolol succinate 50 mg 50 mg PO DAILY 03/23/20 04/17/20 tablet,extended release 24 hr nystatin 100,000 unit/gram topical 100,000 unit topical BID 03/23/20 04/17/20 powder ([facility]) pantoprazole 40 mg tablet,delayed 40 mg PO DAILY 03/23/20 04/17/20 release phenytoin sodium extended 100 mg 200 mg PO DAILY 03/23/20 04/17/20 capsule phenytoin sodium extended 100 mg 400 mg PO BEDTIME 03/23/20 04/17/20 capsule quetiapine 50 mg tablet 50 mg PO DAILY 03/23/20 04/17/20 spironolactone 25 mg tablet 25 mg PO DAILY 03/23/20 04/17/20 trazodone 50 mg tablet 100 mg PO BEDTIME 03/23/20 04/17/20 Previous Rx's Medication Instructions Recorded lorazepam 2 mg tablet 2 mg PO BID #5 tabs 03/26/20 Allergies Allergy/AdvReac Type Severity Reaction Status Date / Time aspirin Allergy Severe OCCASIONAL Verified 04/08/22 14:18 RASH / TONGUE SWELLING, Hives, throat swellig bee pollen [BEE STINGS] Allergy Severe ANAPHYLAXIS Verified 04/08/22 14:18 penicillin V Allergy Severe Hives Verified 04/08/22 14:18 Penicillins Allergy Severe ANAPHYLAXIS Verified 04/08/22 14:18 povidone-iodine [Betadine] Allergy Severe Redness of Verified 04/08/22 14:18 Skin soap [Betadine] Allergy Severe Redness of Verified 04/08/22 14:18 Skin spider venom [SPIDER BITES] Allergy Severe Hives Verified 04/08/22 14:18 amoxicillin Allergy Intermediate Hives Verified 04/08/22 14:18 clindamycin Allergy Mild RASH Verified 04/08/22 14:18 latex [Latex] Allergy Mild RASH Verified 04/08/22 14:18 bupropion [From WELLBUTRIN] AdvReac Severe SEIZURES Verified 04/08/22 14:18 Latex Allergy Severe Hives Uncoded 03/24/20 11:50 Latex Gloves Allergy Intermediate Hives Uncoded 03/24/20 11:50 TAPE Allergy Intermediate Redness of Uncoded 03/24/20 11:50 Skin Review of Systems Review of Systems: Constitutional : No Weight loss, No Fever, No Chills, No Night Sweats, No Fatigue, No Malaise Cardiovascular : No Chest Pain, No SOB, No Dyspnea on Exertion, No Orthopnea, No Edema, No Palpitations Respiratory : No Cough, No Sputum, No Wheezing, No Smoke Exposure, Dyspnea Gastrointestinal : No Nausea, No Vomiting, No Diarrhea, No Constipation, No abdominal Pain, No Hematochezia, No Melena Genitourinary : no irregular bleeding, No Dysuria, No Urinary Frequency, No Hematuria, No Urinary Incontinence, No Urgency, No Flank Pain, No Urinary Flow Changes, No Hesitancy Musculoskeletal : No joint pain, No Myalgias, No Joint Swelling, leg weakness Skin : No Skin Lesions, No rash, right lower extremity cellulitis Neuro : No Weakness, No Numbness, No Paresthesias, No Loss of Consciousness, No Dizziness, No Headache Psych : No Anxiety/Panic, No Depression, No SI/HI/AH/VH, No Social Issues, Heme/Lymph: No Bruising, No Bleeding,No Lymphadenopathy Endocrine : No Polyuria, No Polydipsia, No Temperature Intolerance Yes all other systems are reviewed and are negative Neurologic: Reports Abnormal speech present [facility] Past Medical History Medical History Anxiety Arthritis Asthma Coronary artery disease Diabetes mellitus, type 2 Hypertension Obesity PTSD (post-traumatic stress disorder) TIA (transient ischemic attack) Social History Social History Household Members: None Housing: Apartment Do you presently have visiting nurse or other home services: Yes (home health aide) Alcohol intake: current Alcohol intake frequency: holidays/special occasions only Second Hand Smoke Exposure: No Advance Directives: No service: No Current occupational status: disabled Physical Exam ED Vital Signs: Vital Signs - 24 hr 04/08/22 14:24 04/08/22 14:22 04/08/22 17:03 Temperature 99.2 F 99.2 F 97.9 F Pulse Rate 97 100 87 Respiratory Rate 18 18 24 H Blood Pressure 113/61 113/61 103/65 Pulse Oximetry 91 L 92 90 L Oxygen Delivery Method Room Air Room Air Room Air Oxygen Flow Rate 04/08/22 20:00 Temperature 98.4 F Pulse Rate 77 Respiratory Rate 16 Blood Pressure 116/68 Pulse Oximetry 95 Oxygen Delivery Method Nasal Cannula Oxygen Flow Rate 2 BMI result Body Mass Index 47.5 Const General: cooperative, no acute distress, alert and Physically active Nutritional Appearance: obese Orientation/consciousness: patient oriented x3 HENMT Head: Yes normal to inspection, Yes No palpable skull fracture present, Yes normocephalic and Yes atraumatic Resp Effort & Inspection: normal respiratory effort and able to speak in complete sentences Auscultation: clear to auscultation bilaterally Cardio Rate: regular rate Heart sounds: S1 normal heart sound present and S2 normal heart sound present General: Yes no CVA tenderness Back/Spine/Pelvis Back: no CVA tenderness Cervical Spine: normal cervical lordosis Thoracic/Lumbar Spine: thoracic and lumbar spine normal to inspection and No paraspinal muscle tenderness Neuro General: patient oriented x3, moves all extremities and Unable to assess gait Cognition (Neuro): normal cognition Speech: Abnormal speech present Gait exam (Neuro): Unable to assess gait Motor exam (neuro): Pronator motor function not present and no tremor noted Extrem Other: No increased warmth, positive pedal pulses Course Course Course Narrative: Potassium 5.4 will treat patient with Lokelma, will repeat potassium level. Chest x-ray negative for any acute findings. Normal cardiac silhouette, x-ray of lumbar region no acute finding. Patient states that he is feeling better. He states that his oxygen level is always between 89-92 %. Blood sugar 334 Reevaluation(s) Reevaluation #1: Potassium 5.1, glucose 304. Patient called his sister who come to the house and meet him there. Patient will be discharged home to follow-up with his PCP. Medical Decision Making Lab Data Result diagrams: 04/08/22 15:28 04/08/22 19:17 Labs: Lab Results 04/08/22 04/08/22 04/08/22 Range/Units 14:31 15:28 15:28 WBC 10.0 (4.8-10.8) X10*3/uL RBC 4.72 (4.60-5.80) X10*6/uL Hgb 9.7 L (14.0-18.0) g/dl Hct 34.2 L (42.0-52.0) % MCV 72.5 L (80.0-98.0) fL MCH 20.6 L (27.0-33.0) pg MCHC 28.4 L (31.0-36.0) g/dl RDW 19.2 H (11.0-16.0) % Plt Count 378 (160-400) X10*3/uL MPV 9.5 (9.4-12.4) fL Immature Gran % (Auto) 0.6 H (0.0-0.4) % Neut % (Auto) 82.4 H (45-73) % Lymph % (Auto) 11.0 L (20-40) % [place] % (Auto) 5.0 (2-11) % Eos % (Auto) 0.8 (0-4) % Baso % (Auto) 0.2 (0-2) % Lymph # (Auto) 1.1 L (1.2-4.9) X10*3/uL [place] # (Auto) 0.5 (0.1-1.2) X10*3/uL Eos # (Auto) 0.1 (0.0-0.4) X10*3/uL Baso # (Auto) 0.0 (0.0-0.2) X10*3/uL Abs Immat Gran (auto) 0.06 H (0.00-0.03) X10*3/uL Absolute Neuts (auto) 8.3 (2.0-8.3) x10*3/uL Absolute Nucleated RBC 0.000 (0.0-0.012) X10*3/uL Nucleated RBC % (auto) 0.0 (0.0-0.2) /100WBC Sodium 132 L (135-145) mmol/L Potassium 5.4 H (3.3-5.1) mmol/L Chloride 95 L (96-108) mmol/L Carbon Dioxide 25 (22-29) mmol/L Anion Gap 17 (12-20) BUN 15 (9-16) mg/dL Creatinine 1.13 (0.5-1.4) mg/dL Estim Creat Clear Calc 113.2 Estimated GFR > 60 POC Glucose 386 H* (60-115) mg/dL Random Glucose 400 H* (60-115) mg/dL Calcium 8.7 D (8.4-10.2) mg/dL 04/08/22 04/08/22 04/08/22 Range/Units 16:38 18:59 19:17 WBC (4.8-10.8) X10*3/uL RBC (4.60-5.80) X10*6/uL Hgb (14.0-18.0) g/dl Hct (42.0-52.0) % MCV (80.0-98.0) fL MCH (27.0-33.0) pg MCHC (31.0-36.0) g/dl RDW (11.0-16.0) % Plt Count (160-400) X10*3/uL MPV (9.4-12.4) fL Immature Gran % (Auto) (0.0-0.4) % Neut % (Auto) (45-73) % Lymph % (Auto) (20-40) % [place] % (Auto) (2-11) % Eos % (Auto) (0-4) % Baso % (Auto) (0-2) % Lymph # (Auto) (1.2-4.9) X10*3/uL [place] # (Auto) (0.1-1.2) X10*3/uL Eos # (Auto) (0.0-0.4) X10*3/uL Baso # (Auto) (0.0-0.2) X10*3/uL Abs Immat Gran (auto) (0.00-0.03) X10*3/uL Absolute Neuts (auto) (2.0-8.3) x10*3/uL Absolute Nucleated RBC (0.0-0.012) X10*3/uL Nucleated RBC % (auto) (0.0-0.2) /100WBC Sodium (135-145) mmol/L Potassium 5.1 (3.3-5.1) mmol/L Chloride (96-108) mmol/L Carbon Dioxide (22-29) mmol/L Anion Gap (12-20) BUN (9-16) mg/dL Creatinine (0.5-1.4) mg/dL Estim Creat Clear Calc Estimated GFR POC Glucose 334 H 307 H (60-115) mg/dL Random Glucose (60-115) mg/dL Calcium (8.4-10.2) mg/dL 04/08/22 Range/Units 20:01 WBC (4.8-10.8) X10*3/uL RBC (4.60-5.80) X10*6/uL Hgb (14.0-18.0) g/dl Hct (42.0-52.0) % MCV (80.0-98.0) fL MCH (27.0-33.0) pg MCHC (31.0-36.0) g/dl RDW (11.0-16.0) % Plt Count (160-400) X10*3/uL MPV (9.4-12.4) fL Immature Gran % (Auto) (0.0-0.4) % Neut % (Auto) (45-73) % Lymph % (Auto) (20-40) % [place] % (Auto) (2-11) % Eos % (Auto) (0-4) % Baso % (Auto) (0-2) % Lymph # (Auto) (1.2-4.9) X10*3/uL [place] # (Auto) (0.1-1.2) X10*3/uL Eos # (Auto) (0.0-0.4) X10*3/uL Baso # (Auto) (0.0-0.2) X10*3/uL Abs Immat Gran (auto) (0.00-0.03) X10*3/uL Absolute Neuts (auto) (2.0-8.3) x10*3/uL Absolute Nucleated RBC (0.0-0.012) X10*3/uL Nucleated RBC % (auto) (0.0-0.2) /100WBC Sodium (135-145) mmol/L Potassium (3.3-5.1) mmol/L Chloride (96-108) mmol/L Carbon Dioxide (22-29) mmol/L Anion Gap (12-20) BUN (9-16) mg/dL Creatinine (0.5-1.4) mg/dL Estim Creat Clear Calc Estimated GFR POC Glucose 304 H (60-115) mg/dL Random Glucose (60-115) mg/dL Calcium (8.4-10.2) mg/dL Imaging Data Lumbar spine x-ray: Radiologist's impression: FINDINGS: Lateral imaging is suboptimal due to body habitus. Visualization is limited. No acute fracture or subluxation. Vertebral body height and alignment maintained. Disc space narrowing at L5-S1 noted with vacuum disc phenomenon. Small endplate osteophytes at this level. The sacroiliac joints are symmetric. The visualized sacrum is grossly intact. Normal bowel gas pattern. Degenerative changes of the right hip partially visualized. XR/XR lumbar spine 2-3V IMPRESSION: No acute fracture or malalignment. Degenerative changes at L5-S1. Chest x-ray: Radiologist's impression: FINDINGS: Lung volumes are low. No consolidation, edema, or effusion. No pneumothorax. The cardiomediastinal silhouette remains prominent. XR/XR chest 1V IMPRESSION: Low lung volumes. No acute pulmonary finding. Discharge Plan Discharge Clinical Impression: Fall Patient Disposition: Home, Self-Care Instructions: Fall Prevention (ED) Additional Instructions: You were sent here today because your blood sugars were high and you sustained a fall. X-ray of you spine and chest x-ray were all negative for any abnormal findings. However your blood sugar has been high. Make sure that you follow diabetic diet and taking medication as prescribed. Your potassium level was a little bed elevated as well. You received medication to help lowering your potassium to the normal level. Potassium was rechecked and it was normal. Please review with your primary care provider your medication. Avoid eating green leafy vegetables or bananas for the next couple days. Please return to emergency department if you will have any symptoms of dizziness, shortness of breath or any other worrisome symptoms. Prescriptions: No Action furosemide 40 mg tablet 40 mg PO BID cyanocobalamin (vitamin B-12) [Vitamin B-12] 1,000 mcg tablet extended release 1,000 mcg PO DAILY atorvastatin 20 mg tablet 20 mg PO DAILY trazodone 50 mg tablet 100 mg PO BEDTIME metoprolol succinate 50 mg tablet extended release 24 hr 50 mg PO DAILY phenytoin sodium extended 100 mg capsule 200 mg PO DAILY clopidogrel 75 mg tablet 75 mg PO DAILY spironolactone 25 mg tablet 25 mg PO DAILY isosorbide mononitrate 60 mg tablet extended release 24 hr 60 mg PO QAM pantoprazole 40 mg tablet,delayed release (DR/EC) 40 mg PO DAILY metformin 1,000 mg tablet 1,000 mg PO QAM hydroxyzine HCl 25 mg tablet 25 mg PO TID PRN (Reason: anxiety) nystatin [Nyamyc] 100,000 unit/gram powder 100,000 unit topical BID lisinopril 40 mg tablet 40 mg PO DAILY duloxetine 30 mg capsule,delayed release(DR/EC) 30 mg PO BID quetiapine 50 mg tablet 50 mg PO DAILY cholecalciferol (vitamin D3) 50 mcg (2,000 unit) tablet 50 mcg PO DAILY phenytoin sodium extended 100 mg capsule 400 mg PO BEDTIME lorazepam 2 mg tablet 2 mg PO BID Qty: 5 0RF
[2022-04-08 15:33] LABS: MANUAL DIFF FLAG NO
[2022-04-08 15:34] LABS: Basophils Percent Auto 0.2 % (0-2); Eosinophils Absolute Auto 0.1 X10*3/uL (0.0-0.4); Eosinophils Percent Auto 0.8 % (0-4); Hematocrit 34.2 % (42.0-52.0); Hemoglobin 9.7 g/dl (14.0-18.0); Imm Gran Abs Auto 0.06 X10*3/uL (0.00-0.03); Imm Gran Pct Auto 0.6 % (0.0-0.4); Lymphocytes Absolute Auto 1.1 X10*3/uL (1.2-4.9); Mean Corpuscular HGB Conc 28.4 g/dl (31.0-36.0); Mean Corpuscular Hemoglobin 20.6 pg (27.0-33.0); Mean Corpuscular Volume 72.5 fL (80.0-98.0); Mean Platelet Volume 9.5 fL (9.4-12.4); Monocytes Absolute Auto 0.5 X10*3/uL (0.1-1.2); Neutrophils Absolute Auto 8.3 x10*3/uL (2.0-8.3); Neutrophils Percent Auto 82.4 % (45-73); Platelet Count 378 X10*3/uL (160-400); Red Blood Count 4.72 X10*6/uL (4.60-5.80); Red Cell Distribution Width 19.2 % (11.0-16.0)
[2022-04-08 15:57] LABS: Anion Gap 17 (12-20); Blood Urea Nitrogen 15 mg/dL (9-16); Calcium 8.7 mg/dL (8.4-10.2); Carbon Dioxide 25 mmol/L (22-29); Chloride 95 mmol/L (96-108); Creatinine Clr Calc Pharmacy 113.2; Estimated Glomerular Filt Rate > 60; Glucose Random 400 mg/dL (60-115); Potassium 5.4 mmol/L (3.3-5.1); Sodium 132 mmol/L (135-145)
--- NOTE | 2022-04-08 16:01 | ECG_ITS ---
Test Reason : Hyperglycemia Blood Pressure : / mmHG Vent. Rate : 088 BPM Atrial Rate : 088 BPM P-R Int : 284 ms QRS Dur : 156 ms QT Int : 394 ms P-R-T Axes : 060 -89 020 degrees QTc Int : 476 ms Sinus rhythm with 1st degree A-V block Left anterior fascicular block Right bundle branch block Possible Lateral infarct (cited on or before 25-MAR-2020) Inferior infarct (cited on or before 24-MAR-2020) Abnormal ECG When compared with ECG of 16-APR-2020 21:44, Questionable change in initial forces of Lateral leads Referred By: Sasha Doyle Electronically Signed By:YAYO SAUNDERS MD
[2022-04-08 16:43] LABS: Glucose, Whole Blood 334 mg/dL (60-115)
[2022-04-08] MEDS: Sodium Zirconium Cyclosilicate 5 GM POWD.PACK PO (16:44)
[2022-04-08 17:03] VITALS: BP 103/65; PULSE 87; RESP 24; TEMP 36.6; O2SAT 90
[2022-04-08 19:05] LABS: Glucose, Whole Blood 307 mg/dL (60-115)
[2022-04-08 19:38] LABS: Potassium 5.1 mmol/L (3.3-5.1)
[2022-04-08 20:00] VITALS: BP 116/68; PULSE 77; RESP 16; TEMP 36.9; O2SAT 95
[2022-04-08 20:09] LABS: Glucose, Whole Blood 304 mg/dL (60-115)
[2022-04-08 23:33] VITALS: BP 110/64; PULSE 85; RESP 15; TEMP 37.2; O2SAT 97
--- NOTE | 2022-04-08 23:47 | PC.NURSE ---
pt given rojelio care. Bed linen and pad changed. Pt given call womack and warm blankets
[2022-04-09 02:41] VITALS: BP 119/72; PULSE 79; RESP 14; TEMP 36.6; O2SAT 92
[2022-04-09 04:27] VITALS: BP 117/63; PULSE 77; RESP 15; TEMP 37.3; O2SAT 95
[2022-04-09 05:39] VITALS: BP 131/67; PULSE 81; RESP 17; TEMP 37.3; O2SAT 92
[2022-04-09 08:01] VITALS: BP 161/80; PULSE 80; RESP 16; O2SAT 93
[2022-04-09 10:00] VITALS: RESP 18
--- NOTE | 2022-04-09 10:03 | PC.NURSE ---
Patient a/ox4 . breathing even and unlabored . transferred to EMS stretcher . went over discharge instructions as ordered by provider . patient has no questions at this time .
== END 2022-04-09 10:04 | disposition home or self-care (01) ==
PROVIDERS: Nurse Practitioner Family; Emergency Provider Emergency Medicine
DX: Z04.3 Encounter for examination and observation following other accident (principal); E11.65 Type 2 diabetes mellitus with hyperglycemia; Z91.81 History of falling; L03.115 Cellulitis of right lower limb; R53.1 Weakness; I10 Essential (primary) hypertension; E78.5 Hyperlipidemia, unspecified; E66.9 Obesity, unspecified; Z68.42 Body mass index [BMI] 45.0-49.9, adult; Z79.02 Long term (current) use of antithrombotics/antiplatelets; Z79.899 Other long term (current) drug therapy; Z79.84 Long term (current) use of oral hypoglycemic drugs
CPT/HCPCS: 36415; 71045; 72100; 80048; 82947; 84132; 85025; 93005; 99283; 99284

== ENCOUNTER 2022-04-13 09:05 | Inpatient (IN) | payer OTHER, SELFPAY ==
[2022-04-13] VITALS (7 sets, daily range): BP systolic 108–135; BP diastolic 46–90; PULSE 105–137; RESP 12–19; TEMP 36.6–37.2; O2SAT 91–97; BMI 56.2
--- NOTE | ~2022-04-13 | XR_ITS ---
EXAMINATION: XR CHEST CLINICAL INFORMATION: Pain after fall. COMPARISON: None TECHNIQUE: 2 views of the chest were obtained. FINDINGS: No significant abnormality is noted involving the heart, lungs, mediastinum, bony thorax or soft tissues. XR/XR chest 2V IMPRESSION: No acute cardiopulmonary process. No overt acute abnormality.
--- NOTE | ~2022-04-13 | XR_ITS ---
EXAMINATION: XR KNEE, RIGHT CLINICAL INFORMATION: Pain after fall. COMPARISON: None TECHNIQUE: Four views of the right knee. FINDINGS: Nqak-rk-jkauvlxg tricompartmental degenerative joint changes are seen. Femoral tibial chondrocalcinosis is noted as well. There is no acute fracture or dislocation. No significant joint effusion. Partial visualization of an intramedullary ena in the tibia without abnormality. The soft tissues show mild swelling. XR/XR knee RT 3V IMPRESSION: 1. Ignh-dx-getmbfdq tricompartmental degenerative joint changes. No acute fracture. 2. Mild soft tissue swelling.
--- NOTE | ~2022-04-13 | CT_ITS ---
EXAMINATION: CT HEAD WITHOUT CONTRAST CLINICAL INFORMATION: Status post fall, found on ground. COMPARISON: Head CT scan dated 04/17/2020. TECHNIQUE: Multiple axial images of the head were obtained without the administration of intravenous contrast. Coronal and sagittal reformatted images were obtained. This CT examination was performed using dose optimization techniques as appropriate, variously including the following: *Automated exposure control *Adjustment of mA and/or kV according to patient size (this includes techniques or standardized protocols for targeted exams where dose is matched to indication/reason for exam; i.e. extremities or head) *Use of iterative reconstruction technique DLP: 988.70 mGy-cm FINDINGS: Encephalomalacia is again seen in the left frontal parietal and left cerebellar regions without significant change. No acute intracranial hemorrhage. No mass effect or midline shift. There is mild widening of the cortical sulci and associated ventriculomegaly. The lateral ventricles are symmetrical. The third and fourth ventricles are in their normal midline position. The basilar and prepontine cisterns are unremarkable. A small frontal subgaleal hematoma is seen to the right of midline. No acute underlying osseous abnormality. Sections through the bony calvarium are unremarkable. The orbits are intact. The paranasal sinuses are clear. The mastoid air cells are clear. CT/CT head/brain wo IV con IMPRESSION: No acute intracranial abnormality. No significant change from the 2019 study.
--- NOTE | ~2022-04-13 | CT_ITS ---
EXAMINATION: CT CERVICAL SPINE WITHOUT CONTRAST CLINICAL INFORMATION: Status post fall, found on ground. COMPARISON: Head CT scan dated 04/17/2020. TECHNIQUE: Multiple axial images of the cervical spine were obtained without the administration of intravenous contrast. Coronal and sagittal reformatted images were obtained. Motion artifact significantly limits evaluation. This CT examination was performed using dose optimization techniques as appropriate, variously including the following: *Automated exposure control *Adjustment of mA and/or kV according to patient size (this includes techniques or standardized protocols for targeted exams where dose is matched to indication/reason for exam; i.e. extremities or head) *Use of iterative reconstruction technique DLP: 988.70 mGy-cm FINDINGS: There is generalized osteopenia. Normal cervical lordosis and spinal alignment is seen. No overt fracture. The odontoid process appears intact. Mild to moderate associated degenerative articular changes are seen. The neural foramina are patent. Mild multilevel bilateral facet arthropathy is seen. The spinous processes appear intact. The cervical soft tissues are unremarkable. No lymphadenopathy. The thyroid gland is unremarkable. The lung apices are clear. CT/CT cervical spine wo IV con IMPRESSION: Limited study showing no overt acute abnormality and mild degenerative changes.
--- NOTE | ~2022-04-13 | XR_ITS ---
EXAMINATION: XR SHOULDER, LEFT CLINICAL INFORMATION: Left pain and deformity. COMPARISON: None TECHNIQUE: Three views of the left shoulder. FINDINGS: Moderate left acromioclavicular and mild glenohumeral degenerative joint changes are seen. There is no acute fracture or dislocation. The soft tissues are unremarkable. XR/XR shoulder LT min 2V IMPRESSION: Mild to moderate left shoulder degenerative joint changes. No acute fracture. No significant change.
--- NOTE | 2022-04-13 07:14 | ECG_ITS ---
Test Reason : REPEAT/TACHY Blood Pressure : / mmHG Vent. Rate : 124 BPM Atrial Rate : 000 BPM P-R Int : 000 ms QRS Dur : 148 ms QT Int : 372 ms P-R-T Axes : 000 267 031 degrees QTc Int : 534 ms Atrial fibrillation with rapid ventricular response Right bundle branch block Inferior infarct (cited on or before 24-MAR-2020) Abnormal ECG When compared with ECG of 13-APR-2022 09:47, Atrial fibrillation has replaced Sinus rhythm Referred By: Madeline Quijano Electronically Signed By:YAYO SAUNDERS MD
--- NOTE | 2022-04-13 09:36 | ECG_ITS ---
Test Reason : FALL Blood Pressure : / mmHG Vent. Rate : 111 BPM Atrial Rate : 111 BPM P-R Int : 200 ms QRS Dur : 154 ms QT Int : 382 ms P-R-T Axes : 000 270 043 degrees QTc Int : 519 ms Sinus tachycardia with 1st degree A-V block Right bundle branch block Inferior infarct (cited on or before 24-MAR-2020) Abnormal ECG When compared with ECG of 08-APR-2022 16:45, PA interval has decreased Referred By: Diana Ramírez Electronically Signed By:YAYO SAUNDERS MD
[2022-04-13 10:22] LABS: Appearance Urine Clear; Color Urine Yellow; Glucose Urine UA 500 mg/dL (Negative); Leukocyte Esterase Urine Negative (Negative); Nitrite Urine Negative (Negative); Urine Blood Negative (Negative); Urine Ketones Negative (Negative); Urine Protein Negative (Neg-Trace)
[2022-04-13 10:23] LABS: MANUAL DIFF FLAG NO
[2022-04-13 10:25] LABS: Basophils Percent Auto 0.2 % (0-2); Eosinophils Absolute Auto 0.1 X10*3/uL (0.0-0.4); Eosinophils Percent Auto 0.5 % (0-4); Hematocrit 34.2 % (42.0-52.0); Hemoglobin 9.5 g/dl (14.0-18.0); Imm Gran Abs Auto 0.04 X10*3/uL (0.00-0.03); Imm Gran Pct Auto 0.4 % (0.0-0.4); Lymphocytes Absolute Auto 1.2 X10*3/uL (1.2-4.9); Mean Corpuscular HGB Conc 27.8 g/dl (31.0-36.0); Mean Corpuscular Hemoglobin 20.5 pg (27.0-33.0); Mean Corpuscular Volume 73.7 fL (80.0-98.0); Mean Platelet Volume 9.6 fL (9.4-12.4); Monocytes Absolute Auto 0.6 X10*3/uL (0.1-1.2); Monocytes Percent Auto 5.5 % (2-11); Neutrophils Absolute Auto 8.2 x10*3/uL (2.0-8.3); Neutrophils Percent Auto 81.4 % (45-73); Platelet Count 381 X10*3/uL (160-400); Red Blood Count 4.64 X10*6/uL (4.60-5.80); Red Cell Distribution Width 19.3 % (11.0-16.0); White Blood Count 10.1 X10*3/uL (4.8-10.8)
[2022-04-13 10:35] LABS: INTERNATIONAL NORM RATIO 1.1 (0.9-1.1); Prothrombin Time 13.2 SEC (10.0-13.1)
[2022-04-13 10:37] LABS: COVID-19 Test Negative (Negative)
--- NOTE | 2022-04-13 10:41 | ED.GENADULT ---
HPI - General Adult General Chief complaint: Fall Stated complaint: FALL OUT OF W/C, ON FLOOR ALL NIGHT Time Seen by Provider: 04/13/22 09:37 Source: patient Mode of arrival: EMS Limitations: no limitations History of Present Illness HPI narrative: Patient is a 61-year-old male who presents to the emergency department via EMS for evaluation after a fall last night. Patient reports that at approximately 23:00 he was in his wheelchair attempting to go to the kitchen, when he felt his left side of his body becoming weak and numb. He eventually started to slip out of his wheelchair, reporting that his left arm got caught in the arm rest of the wheelchair. He eventually fell forward, with the left arm still being wedged in the arm of the wheelchair, states that the arm was pulled backwards, and he subsequently fell onto the floor and struck his head. He is uncertain whether any loss of consciousness occurred. He does states that he is on Eliquis. He is reporting pain to the left shoulder as well as pain to the right knee. Currently he reports feeling overall very weak and fatigued. He laid on the floor all night until his EMPLOYMENT SERVICE SPECIALIST came this morning finding him on the floor and then contacted EMS. Related Data Home Medications Medication Instructions Recorded Confirmed atorvastatin 20 mg tablet 20 mg PO DAILY 03/23/20 04/13/22 cholecalciferol (vitamin D3) 50 50 mcg PO DAILY 03/23/20 04/13/22 mcg (2,000 unit) tablet cyanocobalamin (vitamin B-12) 1,000 mcg PO DAILY 03/23/20 04/13/22 1,000 mcg tablet,extended release (Vitamin B-12 ER) furosemide 40 mg tablet 40 mg PO BID 03/23/20 04/13/22 hydroxyzine HCl 25 mg tablet 25 mg PO TID PRN anxiety 03/23/20 04/13/22 isosorbide mononitrate 60 mg 60 mg PO QAM 03/23/20 04/13/22 tablet,extended release 24 hr metformin 1,000 mg tablet 1,000 mg PO QAM 03/23/20 04/13/22 metoprolol succinate 50 mg 50 mg PO DAILY 03/23/20 04/13/22 tablet,extended release 24 hr nystatin 100,000 unit/gram topical 100,000 unit topical BID PRN Rash 03/23/20 04/13/22 powder (Nyamyc) pantoprazole 40 mg tablet,delayed 40 mg PO DAILY 03/23/20 04/13/22 release phenytoin sodium extended 100 mg 200 mg PO DAILY@0730 03/23/20 04/13/22 capsule phenytoin sodium extended 100 mg 400 mg PO BEDTIME 03/23/20 04/13/22 capsule trazodone 50 mg tablet 100 mg PO BEDTIME 03/23/20 04/13/22 albuterol sulfate 90 mcg/actuation 2 puff inhalation Q4-6H PRN 04/13/22 04/13/22 aerosol inhaler Shortness Of Breath Or Wheezing apixaban 5 mg tablet (Eliquis) 5 mg PO BID 04/13/22 04/13/22 duloxetine 60 mg capsule,delayed 60 mg PO BID 04/13/22 04/13/22 release fluticasone propionate 50 1 spray intranasal BID 04/13/22 04/13/22 mcg/actuation nasal spray,suspension gabapentin 400 mg capsule 400 mg PO 5XD 04/13/22 04/13/22 lorazepam 2 mg tablet 4 mg PO TID PRN Anxiety 04/13/22 04/13/22 oxycodone 5 mg tablet 5 mg PO BID PRN severe pain 04/13/22 04/13/22 quetiapine 100 mg tablet 100 mg PO BEDTIME PRN insomnia 04/13/22 04/13/22 Allergies Allergy/AdvReac Type Severity Reaction Status Date / Time aspirin Allergy Severe OCCASIONAL Verified 04/08/22 14:18 RASH / TONGUE SWELLING, Hives, throat swellig bee pollen [BEE STINGS] Allergy Severe ANAPHYLAXIS Verified 04/08/22 14:18 penicillin V Allergy Severe Hives Verified 04/08/22 14:18 Penicillins Allergy Severe ANAPHYLAXIS Verified 04/08/22 14:18 povidone-iodine [Betadine] Allergy Severe Redness of Verified 04/08/22 14:18 Skin soap [Betadine] Allergy Severe Redness of Verified 04/08/22 14:18 Skin spider venom [SPIDER BITES] Allergy Severe Hives Verified 04/08/22 14:18 amoxicillin Allergy Intermediate Hives Verified 04/08/22 14:18 clindamycin Allergy Mild RASH Verified 04/08/22 14:18 latex [Latex] Allergy Mild RASH Verified 04/08/22 14:18 bupropion [From WELLBUTRIN] AdvReac Severe SEIZURES Verified 04/08/22 14:18 Latex Allergy Severe Hives Uncoded 03/24/20 11:50 Latex Gloves Allergy Intermediate Hives Uncoded 03/24/20 11:50 TAPE Allergy Intermediate Redness of Uncoded 03/24/20 11:50 Skin Review of Systems Review of Systems: Constitutional: No weight loss. No fever. No chills. Positive weakness. Positive fatigue. Eye: No swelling. No redness. ENT: No sore throat. No rhinorrhea. No nasal congestion. No sore throat. No difficulty swallowing. Skin: No rash. No itching. Cardiovascular: No chest pain. No chest pressure. No palpitations. No pedal edema. Respiratory: No shortness of breath. No cough. No sputum production. Gastrointestinal: No anorexia. No nausea. No vomiting. No diarrhea. No abdominal pain. No blood in stool. Genitourinary: No burning micturition. No urinary frequency. No incontinence. Neurologic: Positive headache. No dizziness. No pre-syncope/ syncope. No unilateral weakness. No ataxia. No numbness. No tingling. No change in bowel or bladder control. Musculoskeletal: Positive left shoulder pain, positive right knee pain Hematologic: No bleeding. No bruising. Lymphatics: No enlarged lymph nodes. Psychiatric:No depression. No anxiety. Yes all other systems are reviewed and are negative PMFSH Past Medical History Attestation statement: The following information was validated with the patient. Source: old records reviewed Medical History Anxiety Arthritis Asthma Coronary artery disease Diabetes mellitus, type 2 Hypertension Obesity PTSD (post-traumatic stress disorder) TIA (transient ischemic attack) Social History Social History Household Members: None Housing: Apartment Do you presently have visiting nurse or other home services: Yes (home health aide) Alcohol intake: never Smoked in Last 30 Days: No Second Hand Smoke Exposure: No Use of substances other than those prescribed or required for medical reasons: No Advance Directives: Yes Advance Directives Information Provided: Yes Advance Directives on File: No service: No Current occupational status: disabled Physical Exam ED Vital Signs: Vital Signs - 24 hr 04/13/22 09:17 11/08/22 14:20 04/13/22 16:00 Temperature 98.9 F 98.1 F Pulse Rate 105 H 130 H 120 H Respiratory Rate 16 16 14 Blood Pressure 114/46 L 121/61 135/66 Pulse Oximetry 97 93 95 Oxygen Delivery Method Room Air Nasal Cannula Nasal Cannula Oxygen Flow Rate 2 2 04/13/22 17:33 Temperature Pulse Rate 128 H Respiratory Rate Blood Pressure Pulse Oximetry 91 L Oxygen Delivery Method Nasal Cannula Oxygen Flow Rate 2 BMI result Body Mass Index 56.2 Appearance: Alert.?Oriented to person, place and time. No acute distress.?Normal affect. Head: Abrasion present medial to left brow. Normocephalic. Eyes: Pupils equal, round and reactive to light.? EOMI. No nystagmus ENT: Pharynx normal.??TMs normal bilaterally Neck: Normal inspection.? Neck supple.?? CVS: Heart sounds normal. Normal heart rate and rhythm.? Pulses normal.?? Respiratory: No respiratory distress.? Lung sounds clear to auscultation bilaterally?? Abdomen: Soft and non-tender. Normoactive bowel sounds. No pulsatile mass.?? Skin: Skin warm and dry.? Normal skin color.? Extremities: Bilateral lower extremity edema, nonpitting. Left shoulder deformity, tenderness upon palpation, radial and ulnar pulse 2+ bilaterally. Decreased range of motion to left shoulder. Right knee, anterior tenderness with palpation over the patella, mild decreased range of motion due to reported pain. 2+ DP/PT pulse bilaterally. Erythema present to the right lower extremity of along the lateral aspect, which may be from prolonged time on floor. Neuro: Moves all extremities spontaneously. Sensation intact bilaterally. CN II-XII intact. No focal neuro deficits. Course Course Course Narrative: Patient is a 61-year-old male with a past medical history of anxiety, arthritis, CAD, type 2 diabetes, hypertension, obesity, PTSD, TIA, history of DVT on Eliquis who presents emergency department for evaluation after a fall and prolonged down time. This time the etiology of the fall is unclear, patient expressed left-sided weakness, posing concern for potential CVA and/or TIA. Patient is on Eliquis, and last known well time was approximately 11 hours ago, therefore he would not be a candidate for tPA. Will obtain CBC to evaluate for leukocytosis/ anemia, CMP and lipase to evaluate for abnormal electrolytes /abnormal renal function/ abnormal hepatic/biliary function, CPK, EKG and troponin to evaluate for ischemia/ACS. CT of the head and cervical spine to exclude ICH, SAH, infarct. Left shoulder x-ray to evaluate for fracture or dislocation, right knee x-ray to evaluate for fracture dislocation, Chest x-ray to evaluate for consolidation/ infiltrate/ mass/ pulmonary congestion and Urinalysis. Reevaluation(s) Reevaluation #1: Patient with a microcytic anemia consistent with baseline, not needing transfusion criteria, no leukocytosis. Hyperkalemia with potassium 5.8, EKG without acute hyperkalemia changes, renal function is normal. CPK within normal limits at 41. COVID-19 testing is negative. EKG reveals sinus tachycardia with right bundle-branch block, no acute ischemic from the compared to prior EKGs. CT of the head without any acute intracranial abnormalities, CT of the cervical spine with no acute abnormality, mild degenerative changes are present. Time: 11:37 Reevaluation #2: XR of the left shoulder reveals mild to moderate degenerative joint changes but no acute fracture or dislocation. Right knee x-ray with mild to moderate degenerative joint changes again without acute fracture dislocation, mild soft tissue swelling is present. Patient updated on all findings, is agreeable with plan of care. History concerning for possible TIA, spoke with hospitalist Dr. Elizalde, who accepts patient for admission to medicine service. Time: 12:20 Reevaluation #3: Advised by nursing staff the patient is tachycardic in the 120s, will obtain repeat EKG at this time to assure no acute changes, patient was placed on 2 L as he was noted to be hypoxic while asleep, when asked patient does report a history of RADHA, reports he occasionally uses his CPAP but is not consistent with that night. Reports his O2 saturation is typically around 92%. Time: 17:35 Additional Reevaluation(s): 17:39 - EKG reveals atrial fibrillation with RVR and right bundle-branch block, when asked, patient states he has heard of atrial fibrillation before, is not certain whether he has a diagnosis of this, or whether was mentioned by his doctor specifically or somebody else. He does reconfirm at this time that the Eliquis is due to a history of DVT. Patient to recevie Metoprolol IV 18:00 Shalom ORTEGA from hospitalist service at bedside for evaluation, updated on above findings. At this time attempting to obtain records from [facility] for more accurate past medical history. Medications Administered Discontinued Medications Generic Name Dose Route Start Last Admin Trade Name Leonel PRN Reason Stop Dose Admin Metoprolol Tartrate 5 mg 04/13/22 17:48 04/13/22 18:00 Metoprolol Tartrate 5 Mg/5 Ml Vial IVPUSH 04/13/22 17:49 5 mg ONCE ONE Administration Morphine Sulfate 4 mg 04/13/22 10:28 04/13/22 11:44 Morphine Sulfate 4 Mg/Ml Cartridge IVPUSH 04/13/22 10:29 4 mg ONCE ONE Administration Protocol Morphine Sulfate 4 mg 04/13/22 14:18 04/13/22 14:50 Morphine Sulfate 4 Mg/Ml Cartridge IVPUSH 04/13/22 14:19 4 mg ONCE ONE Administration Protocol Ondansetron HCl 4 mg 04/13/22 10:28 04/13/22 11:44 Ondansetron Hcl 4 Mg/2 Ml Vial IVPUSH 04/13/22 10:29 4 mg ONCE ONE Administration Sodium Zirconium Cyclosilicate 10 gm 04/13/22 17:35 04/13/22 17:43 Sodium Zirconium Cyclosilicate 10 Gm Powd.Pack PO 04/13/22 17:36 10 gm ONCE ONE Administration Medical Decision Making Lab Data Result diagrams: 04/13/22 10:14 04/13/22 10:14 Labs: Lab Results 04/13/22 04/13/22 04/13/22 Range/Units 10:03 10:14 10:14 WBC 10.1 (4.8-10.8) X10*3/uL RBC 4.64 (4.60-5.80) X10*6/uL Hgb 9.5 L (14.0-18.0) g/dl Hct 34.2 L (42.0-52.0) % MCV 73.7 L (80.0-98.0) fL MCH 20.5 L (27.0-33.0) pg MCHC 27.8 L (31.0-36.0) g/dl RDW 19.3 H (11.0-16.0) % Plt Count 381 (160-400) X10*3/uL MPV 9.6 (9.4-12.4) fL Immature Gran % (Auto) 0.4 (0.0-0.4) % Neut % (Auto) 81.4 H (45-73) % Lymph % (Auto) 12.0 L (20-40) % [place] % (Auto) 5.5 (2-11) % Eos % (Auto) 0.5 (0-4) % Baso % (Auto) 0.2 (0-2) % Lymph # (Auto) 1.2 (1.2-4.9) X10*3/uL [place] # (Auto) 0.6 (0.1-1.2) X10*3/uL Eos # (Auto) 0.1 (0.0-0.4) X10*3/uL Baso # (Auto) 0.0 (0.0-0.2) X10*3/uL Abs Immat Gran (auto) 0.04 H (0.00-0.03) X10*3/uL Absolute Neuts (auto) 8.2 (2.0-8.3) x10*3/uL Absolute Nucleated RBC 0.000 (0.0-0.012) X10*3/uL Nucleated RBC % (auto) 0.0 (0.0-0.2) /100WBC PT 13.2 H (10.0-13.1) SEC INR 1.1 (0.9-1.1) Sodium (135-145) mmol/L Potassium (3.3-5.1) mmol/L Chloride (96-108) mmol/L Carbon Dioxide (22-29) mmol/L Anion Gap (12-20) BUN (9-16) mg/dL Creatinine (0.5-1.4) mg/dL Estim Creat Clear Calc Estimated GFR Random Glucose (60-115) mg/dL Calcium (8.4-10.2) mg/dL Magnesium (1.6-2.6) mg/dL Total Bilirubin (0.0-1.0) mg/dL AST (5-37) U/L ALT (0-40) U/L Alkaline Phosphatase (39-117) U/L Total Creatine Kinase (38-174) U/L Troponin I High Sens (<3.5-35.0) ng/L Total Protein (6.5-8.0) g/dL Albumin (3.5-5.0) g/dL Urine Color Yellow Urine Appearance Clear Urine pH 5.0 (5.0-9.0) Ur Specific [place] 1.020 (1.005-1.025) Urine Protein Negative (Neg-Trace) mg/dL Urine Glucose (UA) 500 H (Negative) mg/dL Urine Ketones Negative (Negative) mg/dL Urine Blood Negative (Negative) Urine Nitrite Negative (Negative) Ur Leukocyte Esterase Negative (Negative) COVID-19 (ANNA) (Negative) COVID-19 Clin Com 04/13/22 04/13/22 04/13/22 Range/Units 10:14 10:14 10:14 WBC (4.8-10.8) X10*3/uL RBC (4.60-5.80) X10*6/uL Hgb (14.0-18.0) g/dl Hct (42.0-52.0) % MCV (80.0-98.0) fL MCH (27.0-33.0) pg MCHC (31.0-36.0) g/dl RDW (11.0-16.0) % Plt Count (160-400) X10*3/uL MPV (9.4-12.4) fL Immature Gran % (Auto) (0.0-0.4) % Neut % (Auto) (45-73) % Lymph % (Auto) (20-40) % [place] % (Auto) (2-11) % Eos % (Auto) (0-4) % Baso % (Auto) (0-2) % Lymph # (Auto) (1.2-4.9) X10*3/uL [place] # (Auto) (0.1-1.2) X10*3/uL Eos # (Auto) (0.0-0.4) X10*3/uL Baso # (Auto) (0.0-0.2) X10*3/uL Abs Immat Gran (auto) (0.00-0.03) X10*3/uL Absolute Neuts (auto) (2.0-8.3) x10*3/uL Absolute Nucleated RBC (0.0-0.012) X10*3/uL Nucleated RBC % (auto) (0.0-0.2) /100WBC PT (10.0-13.1) SEC INR (0.9-1.1) Sodium 134 L (135-145) mmol/L Potassium 5.8 H (3.3-5.1) mmol/L Chloride 103 (96-108) mmol/L Carbon Dioxide 26 (22-29) mmol/L Anion Gap 11 L (12-20) BUN 12 (9-16) mg/dL Creatinine 0.91 (0.5-1.4) mg/dL Estim Creat Clear Calc 155.5 Estimated GFR > 60 Random Glucose 318 H (60-115) mg/dL Calcium 8.7 (8.4-10.2) mg/dL Magnesium 1.9 (1.6-2.6) mg/dL Total Bilirubin 0.2 (0.0-1.0) mg/dL AST 7 (5-37) U/L ALT 11 (0-40) U/L Alkaline Phosphatase 106 (39-117) U/L Total Creatine Kinase 41 (38-174) U/L Troponin I High Sens 13.2 (<3.5-35.0) ng/L Total Protein 6.1 L (6.5-8.0) g/dL Albumin 3.2 L (3.5-5.0) g/dL Urine Color Urine Appearance Urine pH (5.0-9.0) Ur Specific [place] (1.005-1.025) Urine Protein (Neg-Trace) mg/dL Urine Glucose (UA) (Negative) mg/dL Urine Ketones (Negative) mg/dL Urine Blood (Negative) Urine Nitrite (Negative) Ur Leukocyte Esterase (Negative) COVID-19 (ANNA) Negative (Negative) COVID-19 Clin Com See Note Imaging Data CT scan - head: Radiologist's impression: CT/CT head/brain wo IV con IMPRESSION: No acute intracranial abnormality. No significant change from the [address]/CT cervical spine wo IV con IMPRESSION: Limited study showing no overt acute abnormality and mild degenerative changes. Chest x-ray: Radiologist's impression: XR/XR chest 2V IMPRESSION: No acute cardiopulmonary process. No overt acute abnormality. shoulder XR: Radiologist's impression: FINDINGS: Moderate left acromioclavicular and mild glenohumeral degenerative joint changes are seen. There is no acute fracture or dislocation. The soft tissues are unremarkable. XR/XR shoulder LT min 2V IMPRESSION: Mild to moderate left shoulder degenerative joint changes. No acute fracture. No significant change. knee XR: Radiologist's impression: XR/XR knee RT 3V IMPRESSION: 1.? [id number] tricompartmental degenerative joint changes. No acute fracture. 2.? Mild soft tissue swelling. ECG Data Attestation: I personally reviewed and interpreted this ECG as follows: Prior ECG tracings: available for review Interpretation: Rate: 111 Rhythm:? Sinus tachycardia with right bundle branch block Normal P waves.? Normal IRVIN.??? ST T wave :??No ST elevation, no T-wave inversion, qTC: Prolonged; 519 prior studies:? April 2022, no acute changes The study has been interpreted contemporaneously by me. Critical Care Time Critical Care Time Critical Care Time: Yes Total Critical Care Time: 35 Attestation: I personally attest to this critical care time spent taking care of the patient exclusive of all other billable procedures was approximately 35 minutes including initial evaluation of patient, ordering tests, x-ray interpretation, EKG interpretation, medical consultation, documentation, re-evaluation. Discharge Plan Discharge Clinical Impression: Transient ischemic attack (TIA), Fall, Atrial fibrillation with rapid ventricular response Patient Disposition: Admitted As Inpatient
[2022-04-13 10:45] LABS: Alanine Aminotransferase 11 U/L (0-40); Albumin Level 3.2 g/dL (3.5-5.0); Alkaline Phosphatase 106 U/L (39-117); Anion Gap 11 (12-20); Aspartate Amino Transferase 7 U/L (5-37); Bilirubin Total 0.2 mg/dL (0.0-1.0); Blood Urea Nitrogen 12 mg/dL (9-16); Calcium 8.7 mg/dL (8.4-10.2); Carbon Dioxide 26 mmol/L (22-29); Chloride 103 mmol/L (96-108); Creatinine Clr Calc Pharmacy 155.5; Estimated Glomerular Filt Rate > 60; Glucose Random 318 mg/dL (60-115); Magnesium 1.9 mg/dL (1.6-2.6); Potassium 5.8 mmol/L (3.3-5.1); Sodium 134 mmol/L (135-145); Total Protein 6.1 g/dL (6.5-8.0)
[2022-04-13 10:48] LABS: Troponin-I High Sensitivity 13.2 ng/L (<3.5-35.0)
--- NOTE | 2022-04-13 11:00 | PC.NURSE ---
pt is a/o x 4 no sob/cassie noted lungs - brian upper lobes slightly diminished, brian lower lobes diminished. speaks in full sentences. heart sounds regular. abd obese, non tender. bs + x 4 quads. r lower ext swollen and sharlene. pt states that r knee is swollen. pt c/o 10/10 l shoulder pain. pt aware of plan of care.
--- NOTE | 2022-04-13 11:28 | PC.NURSE ---
pt states that he fell out of his w/c last night at 0830pm and was on the floor until 0800am this morning. mlp aware.
[2022-04-13] MEDS: ondansetron HCL 4 MG/2 ML VIAL IVPUSH (11:44)
[2022-04-13] MEDS: Morphine Sulfate 4 MG/ML CARTRIDGE IVPUSH ×2 (11:44→14:50)
--- NOTE | 2022-04-13 13:48 | PC.NURSE ---
pt found to be incontinent of urine, pt linens and pads changed, new gown and blankets given. rojelio car given due to incontinence, pt found to have redness around the groin area, cleaned, dried and barrier cream applied. pt resting comfortably.
--- NOTE | 2022-04-13 14:49 | PHA.MEDREC ---
Pharmacy Consult ? Medication Reconciliation Pharmacy has completed the medication reconciliation. Patient confirmed medication list. States his provider temporarily increased his lorazepam dose from 2 mg tid to 4 mg tid for a total of 2 weeks. This increase started about 7 days ago and should continue for another 7 days according to what the patient says.
--- NOTE | 2022-04-13 15:32 | PC.NURSE ---
darin fairbanks ([phone], [facility] [place]) called [facility] and was updated on pt status.
[2022-04-13] MEDS: Sodium Zirconium Cyclosilicate 10 GM POWD.PACK PO (17:43)
[2022-04-13] MEDS: Metoprolol Tartrate 5 MG/5 ML VIAL IVPUSH (18:00)
--- NOTE | 2022-04-13 19:21 | P.HPHOSP_ITS ---
History of Present Illness Date of Service: 04/13/22 Attending physician on admission: [facility] Chief Complaint: weakness 61-year-old male with history atrial fibrillation anticoagulated with Eliquis, history of DVT, hyperlipidemia, sdu-aiwelbg-kjzjxawiy type 2 diabetes, coronary artery disease, seizure disorder on phenytoin, GERD, depression/anxiety presented to the ED early this morning via EMS complaining of weakness. Patient has longstanding bilateral lower extremity weakness and is in a wheelchair at baseline. He lives at by himself in a [facility] community. Reports last night developed weakness in the upper extremities bilaterally unable to propel his wheelchair well. Also reports tingling in the hands and fingers bilaterally. Due to the weakness, he slid from his wheelchair landing on the floor and did sustain head injury without loss of consciousness. He laid on the floor 4 hours until his [employer] TECHNICIAN arrived this morning and called 911. He did sustain a laceration to the left forehead with significant bleeding that was controlled by the time he arrived at the ED this morning. On arrival, head CT and cervical spine CT negative for any acute intracranial abnormality, fracture, or subluxation. He was also complaining left shoulder and knee pain. X-ray of the shoulder and knee where unremarkable except for degenerative changes. He does continue to complain of tingling in the hands and fingers bilaterally but denies any ongoing weakness. He has had several episodes of palpitations, most recently last night. On arrival, EKG showed sinus tachycardia but heart rate remained elevated in the 120s and repeat EKG did show AFib with RVR. Rate did improve to 96 following 5 mg Lopressor push and 10 mg diltiazem push. Records were obtained from [facility] showing echocardiogram from 07/2021 with normal systolic function with EF 55-65%, otherwise limited study. CXR unremarkable except for low lung volumes. Hematology showed [place] shows stable microcytic anemia. Denies any bleeding episodes except for the head laceration last night. Renal function normal. Sodium 134, potassium 5.8. Glucose 318. BNP 279. Troponin 13.2. Urinalysis largely unremarkable. Review of Systems Review of Systems: General: No fevers, malaise, unintentional weight loss HEENT: No blurred vision, diplopia. No sore throat, nasal congestion, rhinorrhea, sinus pain, ear pain Cardiovascular: +palpitations, +leg edema. No chest pain Respiratory: No shortness of breath, orthopnea, wheezing, cough GI: No abdominal pain, nausea, vomiting, diarrhea, constipation, melena, he mat[place]zia : No dysuria, hematuria, increased urinary frequency, decreased urinary output MSK: No myalgia, back pain Neuro: +b/l weakness upper and lower extremities, + paresthesias BUE. No headaches Skin: No rashes or lesions [facility] Medical History Anxiety Arthritis Asthma Coronary artery disease Diabetes mellitus, type 2 Hypertension Obesity PTSD (post-traumatic stress disorder) TIA (transient ischemic attack) Social History Household Members: None Housing: Apartment Do you presently have visiting nurse or other home services: Yes (home health aide) Alcohol intake: never Smoked in Last 30 Days: No Second Hand Smoke Exposure: No Use of substances other than those prescribed or required for medical reasons: No Advance Directives: Yes Advance Directives Information Provided: Yes Advance Directives on File: No service: No Current occupational status: disabled Meds Allergies Allergy/AdvReac Type Severity Reaction Status Date / Time aspirin Allergy Severe OCCASIONAL Verified 04/08/22 14:18 RASH / TONGUE SWELLING, Hives, throat swellig bee pollen [BEE STINGS] Allergy Severe ANAPHYLAXIS Verified 04/08/22 14:18 penicillin V Allergy Severe Hives Verified 04/08/22 14:18 Penicillins Allergy Severe ANAPHYLAXIS Verified 04/08/22 14:18 povidone-iodine [Betadine] Allergy Severe Redness of Verified 04/08/22 14:18 Skin soap [Betadine] Allergy Severe Redness of Verified 04/08/22 14:18 Skin spider venom [SPIDER BITES] Allergy Severe Hives Verified 04/08/22 14:18 amoxicillin Allergy Intermediate Hives Verified 04/08/22 14:18 clindamycin Allergy Mild RASH Verified 04/08/22 14:18 latex [Latex] Allergy Mild RASH Verified 04/08/22 14:18 bupropion [From WELLBUTRIN] AdvReac Severe SEIZURES Verified 04/08/22 14:18 Latex Allergy Severe Hives Uncoded 03/24/20 11:50 Latex Gloves Allergy Intermediate Hives Uncoded 03/24/20 11:50 TAPE Allergy Intermediate Redness of Uncoded 03/24/20 11:50 Skin Active Medications: Current Medications Acetaminophen (Acetaminophen 325 Mg Tablet) 650 mg PO Q6H PRN PRN Reason: Pain, Mild (Pain Scale 1-3) Apixaban (Apixaban 5 Mg Tablet) 5 mg PO BID [facility] Atorvastatin Calcium (Atorvastatin Calcium 20 Mg Tablet) 20 mg PO DAILY [facility] Cyanocobalamin (Cyanocobalamin (Vitamin B-12) 1,000 Mcg Tablet) 1,000 mcg PO DAILY [facility] Dextrose (Dextrose 50 % 25 Gm/50 Ml Syringe) 25 gm IVPUSH Q15M PRN; Protocol PRN Reason: per Hypoglycemia Standing Ord. Duloxetine HCl (Duloxetine Hcl 60 Mg Capsule.) 60 mg PO BID [facility] Fluticasone Propionate (Fluticasone Propionate Nasal 16 Gm [place]) 1 spray NOSTRIL-B BID [facility] Furosemide (Furosemide 40 Mg Tablet) 40 mg PO BID [facility]; Protocol Gabapentin (Gabapentin 400 Mg Capsule) 400 mg PO 5XD [facility] Glucose (Glucose Gel 15 Gm Gel..Gram.) 15 gm PO Q15M PRN; Protocol PRN Reason: per Hypoglycemia Standing Ord. Hydroxyzine HCl (Hydroxyzine Hcl 25 Mg Tablet) 25 mg PO TID PRN PRN Reason: anxiety Insulin Human Lispro (Insulin Lispro 100 Unit/Ml 3 Ml Vial) 0 unit SUBCUT QIDACHS [facility]; Protocol Isosorbide Mononitrate (Isosorbide Mononitrate 60 Mg Tab.Er.24h) 60 mg PO DAILY [facility]; Protocol Lorazepam (Lorazepam 1 Mg Tablet) 4 mg PO TID PRN PRN Reason: Anxiety Metoprolol Succinate (Metoprolol Succinate Er 50 Mg Tab.Er.24h) 50 mg PO DAILY [facility]; Protocol Omeprazole (Omeprazole 20 Mg Capsule.) 20 mg PO DAILY@0630 [facility] Ondansetron HCl (Ondansetron Hcl 4 Mg/2 Ml Vial) 4 mg IVPUSH Q8H PRN PRN Reason: Nausea and Vomiting Oxycodone HCl (Oxycodone Hcl Immed Release 5 Mg Tablet) 5 mg PO BID PRN PRN Reason: severe pain Pharmacy Consult (Consult Rx Perform Med Rec) 1 each MISCELLANE ONCE PRN PRN Reason: Consult order Phenytoin Sodium (Phenytoin Sodium Extended 100 Mg Capsule) 200 mg PO DAILY@0730 [facility] Phenytoin Sodium (Phenytoin Sodium Extended 100 Mg Capsule) 400 mg PO BEDTIME [facility]OH[facility] Quetiapine Fumarate (Quetiapine Fumarate 100 Mg Tablet) 100 mg PO BEDTIME PRN PRN Reason: insomnia Sodium Chloride (0.9 % Sodium Chloride Flush 3 Ml Syringe) 3 ml IVFLUSH QSHIFT YOHAN Trazodone HCl (Trazodone Hcl 100 Mg Tablet) 100 mg PO BEDTIME YOHAN Vitamin D (Cholecalciferol (Vitamin D3) 25 Mcg Tablet) 50 mcg PO DAILY [facility] Home Medications Medication Instructions Recorded Confirmed Last Taken Type atorvastatin 20 mg tablet 20 mg PO DAILY 03/23/20 04/13/22 04/12/22 History cholecalciferol (vitamin D3) 50 50 mcg PO DAILY 03/23/20 04/13/22 04/12/22 History mcg (2,000 unit) tablet cyanocobalamin (vitamin B-12) 1,000 mcg PO DAILY 03/23/20 04/13/22 04/12/22 History 1,000 mcg tablet,extended release (Vitamin B-12 ER) furosemide 40 mg tablet 40 mg PO BID 03/23/20 04/13/22 04/12/22 History hydroxyzine HCl 25 mg tablet 25 mg PO TID PRN anxiety 03/23/20 04/13/22 04/12/22 History isosorbide mononitrate 60 mg 60 mg PO QAM 03/23/20 04/13/22 04/12/22 History tablet,extended release 24 hr metformin 1,000 mg tablet 1,000 mg PO QAM 03/23/20 04/13/22 04/12/22 History metoprolol succinate 50 mg 50 mg PO DAILY 03/23/20 04/13/22 04/12/22 History tablet,extended release 24 hr nystatin 100,000 unit/gram topical 100,000 unit topical BID PRN Rash 03/23/20 04/13/22 04/15/20 History powder ([facility]) pantoprazole 40 mg tablet,delayed 40 mg PO DAILY 03/23/20 04/13/22 04/12/22 History release phenytoin sodium extended 100 mg 200 mg PO DAILY@0730 03/23/20 04/13/22 04/12/22 History capsule phenytoin sodium extended 100 mg 400 mg PO BEDTIME 03/23/20 04/13/2204/12/22 History capsule trazodone 50 mg tablet 100 mg PO BEDTIME 03/23/20 04/13/22 04/11/22 History albuterol sulfate 90 mcg/actuation 2 puff inhalation Q4-6H PRN 04/13/22 04/13/22 Unknown History aerosol inhaler Shortness Of Breath Or Wheezing apixaban 5 mg tablet (Eliquis) 5 mg PO BID 04/13/22 04/13/22 04/12/22 History duloxetine 60 mg capsule,delayed 60 mg PO BID 04/13/22 04/13/22 04/12/22 History release fluticasone propionate 50 1 spray intranasal BID 04/13/22 04/13/22 Unknown History mcg/actuation nasal spray,suspension gabapentin 400 mg capsule 400 mg PO 5XD 04/13/22 04/13/22 04/12/22 History lorazepam 2 mg tablet 4 mg PO TID PRN Anxiety 04/13/22 04/13/22 04/12/22 History oxycodone 5 mg tablet 5 mg PO BID PRN severe pain 04/13/22 04/13/22 04/12/22 History quetiapine 100 mg tablet 100 mg PO BEDTIME PRN insomnia 04/13/22 04/13/22 04/11/22 History Physical Exam Vital Signs and Narrative: Vital Signs: Last Vital Signs Temp 98.0 F 04/13/22 18:00 Pulse 137 H 04/13/22 18:00 Resp 12 04/13/22 18:00 BP 125/52 L 04/13/22 18:00 Pulse Ox 94 04/13/22 18:00 O2 Del Method 04/13/22 18:00 O2 Flow Rate 2 04/13/22 18:00 BMI result Body Mass Index 56.2 Constitutional - Awake and Alert, No apparent distress Eyes - PERRLA, EOMI Cardiovascular - S1S2, RRR, 2+ edema Respiratory - Normal lung expansion, Normal respiratory effort, No respiratory distress, CTA bilaterally Gastrointestinal - NT / ND; +BS; No rebound or guarding Extremities - no calf tenderness bilaterally, no swelling Skin - Warm/Dry. Venous stasis dermatitis RLE Neurological - Alert & oriented x3, CN II-XII in tact, 4/5 strength BUE and BLE Psychological - Appropriate affect Results Labs CBC and Chem 7: 04/13/22 10:14 04/13/22 10:14 Labs: Laboratory Results - last 24 hr 04/13/22 04/13/22 04/13/22 10:03 10:14 10:14 MCV 73.7 L MCH 20.5 L MCHC 27.8 L RDW 19.3 H Plt Count 381 MPV 9.6 Immature Gran % (Auto) 0.4 Neut % (Auto) 81.4 H Lymph % (Auto) 12.0 L [place] % (Auto) 5.5 Eos % (Auto) 0.5 Baso % (Auto) 0.2 Lymph # (Auto) 1.2 [place] # (Auto) 0.6 Eos # (Auto) 0.1 Baso # (Auto) 0.0 Abs Immat Gran (auto) 0.04 H Absolute Neuts (auto) 8.2 Absolute Nucleated RBC 0.000 Nucleated RBC % (auto) 0.0 PT 13.2 H INR 1.1 Anion Gap Estim Creat Clear Calc Estimated GFR Random Glucose Calcium Magnesium Total Bilirubin AST ALT Alkaline Phosphatase Total Creatine Kinase Troponin I High Sens Total Protein Albumin Urine Color Yellow Urine Appearance Clear Urine pH 5.0 Ur Specific [place] 1.020 Urine Protein Negative Urine Glucose (UA) 500 H Urine Ketones Negative Urine Blood Negative Urine Nitrite Negative Ur Leukocyte Esterase Negative COVID-19 (ANNA) COVID-HYGIEIA Com 04/13/22 04/13/22 04/13/22 10:14 10:14 10:14 MCV MCH MCHC RDW Plt Count MPV Immature Gran % (Auto) Neut % (Auto) Lymph % (Auto) [place] % (Auto) Eos % (Auto) Baso % (Auto) Lymph # (Auto) [place] # (Auto) Eos # (Auto) Baso # (Auto) Abs Immat Gran (auto) Absolute Neuts (auto) Absolute Nucleated RBC Nucleated RBC % (auto) PT INR Anion Gap 11 L Estim Creat Clear Calc 155.5 Estimated GFR > 60 Random Glucose 318 H Calcium 8.7 Magnesium 1.9 Total Bilirubin 0.2 AST 7 ALT 11 Alkaline Phosphatase 106 Total Creatine Kinase 41 Troponin I High Sens 13.2 Total Protein 6.1 L Albumin 3.2 L Urine Color Urine Appearance Urine pH Ur Specific [place] Urine Protein Urine Glucose (UA) Urine Ketones Urine Blood Urine Nitrite Ur Leukocyte Esterase COVID-19 (ANNA) Negative COVID-19 Clin Com See Note Imaging Radiologist's Impressions: Impressions Cervical Spine CT 04/13/22 10:22 IMPRESSION: Limited study showing no overt acute abnormality and mild degenerative changes. Head CT 04/13/22 10:22 IMPRESSION: No acute intracranial abnormality. No significant change from the 2019 study. Chest X-Ray 04/13/22 11:00 IMPRESSION: No acute cardiopulmonary process. No overt acute abnormality. Knee X-Ray 04/13/22 11:00 IMPRESSION: 1. Nmic-go-zaxawpfj tricompartmental degenerative joint changes. No acute fracture. 2. Mild soft tissue swelling. Shoulder X-Ray 04/13/22 11:00 IMPRESSION: Mild to moderate left shoulder degenerative joint changes. No acute fracture. No significant change. Assessment and Plan (1) Weakness: Status: Acute (2) Atrial fibrillation with rapid ventricular response: Status: Acute Plan 61-year-old male with history atrial fibrillation anticoagulated with Eliquis, history of DVT, hyperlipidemia, rfa-anjvagk-mtkhgbygi type 2 diabetes, coronary artery disease, seizure disorder on phenytoin, GERD, depression/anxiety admitted for weakness and AFib with RVR. #Weakness/Paresthesias -Head CT negative for acute intracranial abnormality -neurology consulted -question etiology related to nerve root compression versus TIA. -Unable to perform MRI due to patient habitus. Defer further imaging recom mendations to neurology -Lipid panel ordered. Continue statin -PT ordered -Baby asa daily. On eliquis -Admit to telemetry -Follow CBC #Afib with RVR- HR now controlled -EKG showing AFIB with RVR -last echocardiogram 07/2021 showing normal systolic function with EF 55-60%. Otherwise limited study -given metoprolol 5 mg push and diltiazem 10 mg push. Heart rate 96 -Cardiology consulted -continue home metoprolol -continue Eliquis for anticoagulation -admit to telemetry #Elevated BNP -BNP 289. Baseline unknown. Follow BNP -CXR without evidence of fluid overload but does have bilateral lower extremity edema on Lasix 40 mg b.i.d. at home -continue Lasix 40 mg b.i.d. IV -Cardiology consulted -Last echocardiogram as above # hyponatremia-likely pseudohyponatremia secondary to hyperglycemia -defer IVF due to concern for CHF -follow BMP # hyperkalemia -K 5.8 -given Lokelma -follow BMP # type 2 diabetes with hazxruxsioojq-zca-onglabb-dependent -POC glucose -diabetic/cardiac diet -Humalog on sliding scale -hold metformin # history of DVT -continue Eliquis #coronary artery disease/hyperlipidemia -continue isosorbide, metoprolol. Add aspirin # seizure disorder-stable -continue phenytoin # diabetic neuropathy -continue gabapentin # depression/anxiety Continue quetiapine, trazodone, lorazepam, duloxetine DVT prophylaxis-on Eliquis Full code Patient requires inpatient stay of at least 2 midnights due to weakness of unclear etiology requiring further workup in expert evaluation with question of TIA as well as management of atrial fibrillation with RVR requiring further cardiac monitoring, IV rate control medications and close monitoring for cardiac decompensation and stroke with elevated ABCD2 risk score of 4. Quality Stroke Does the patient have a stroke diagnosis?: No VTE Prior VTE?: No VTE Risk Level:: Medical - moderate - high VTE Device Contraindication: Treatment Not Indicated VTE Drug Contraindication: N/A - Med Ordered
[2022-04-13] MEDS: dilTIAZem HCL 50 MG/10 ML VIAL 10 MG IVPUSH (19:57)
[2022-04-13 20:06] LABS: B Type Natriuretic Peptide 279 pg/mL (<100)
[2022-04-13] MEDS: Phenytoin Sodium Extended 100 MG CAPSULE 400 MG PO (21:31)
[2022-04-13] MEDS: DULoxetine HCl 60 MG CAPSULE.DR PO (21:31)
[2022-04-13] MEDS: traZODone HCL 100 MG TABLET PO (21:31)
[2022-04-13] MEDS: Gabapentin 400 MG CAPSULE PO (21:31)
[2022-04-13] MEDS: Apixaban 5 MG TABLET PO (21:31)
[2022-04-13 21:43] LABS: Glucose, Whole Blood 194 mg/dL (60-115)
[2022-04-13] MEDS: Insulin Lispro 100 UNIT/ML 3 ML VIAL SUBCUT (22:04)
[2022-04-13] MEDS: LORazepam 1 MG TABLET 4 MG PO (22:04)
[2022-04-13] MEDS: oxyCODONE HCl Immed Release 5 MG TABLET PO (22:30)
[2022-04-14] MEDS: 0.9 % Sodium Chloride Flush 3 ML SYRINGE IVFLUSH ×4 (00:14→20:40)
--- NOTE | 2022-04-14 02:07 | PC.NURSE ---
Pt sleeping. Breaths are even and unlabored with equal chest rises. O2 sat 96% on 2L NC.
[2022-04-14 04:08] VITALS: BP 119/75; PULSE 85; RESP 14; TEMP 36.6; O2SAT 98
[2022-04-14] MEDS: Omeprazole 20 MG CAPSULE.DR PO (05:34)
[2022-04-14] MEDS: Gabapentin 400 MG CAPSULE PO ×5 (05:35→20:37)
--- NOTE | 2022-04-14 06:00 | PC.NURSE ---
Pt complaining of pain in the face after the fall. Pt's PRN oxycodone was given at 2230 last night and next dose is not due until 1030 this morning. Hospitalist informed of the pt's pain and ordered this RN to give PRN oxycodone early.
[2022-04-14] MEDS: oxyCODONE HCl Immed Release 5 MG TABLET PO (06:02)
[2022-04-14 06:54] LABS: MANUAL DIFF FLAG NO
[2022-04-14 06:57] LABS: Basophils Percent Auto 0.1 % (0-2); Eosinophils Absolute Auto 0.1 X10*3/uL (0.0-0.4); Eosinophils Percent Auto 1.2 % (0-4); Hemoglobin 9.8 g/dl (14.0-18.0); Imm Gran Abs Auto 0.02 X10*3/uL (0.00-0.03); Imm Gran Pct Auto 0.3 % (0.0-0.4); Lymphocytes Absolute Auto 1.4 X10*3/uL (1.2-4.9); Lymphocytes Percent Auto 20.4 % (20-40); Mean Corpuscular HGB Conc 27.2 g/dl (31.0-36.0); Mean Corpuscular Hemoglobin 20.3 pg (27.0-33.0); Mean Corpuscular Volume 74.7 fL (80.0-98.0); Mean Platelet Volume 10.3 fL (9.4-12.4); Monocytes Absolute Auto 0.4 X10*3/uL (0.1-1.2); Neutrophils Absolute Auto 4.9 x10*3/uL (2.0-8.3); Platelet Count 405 X10*3/uL (160-400); Red Blood Count 4.82 X10*6/uL (4.60-5.80); Red Cell Distribution Width 19.2 % (11.0-16.0); White Blood Count 6.8 X10*3/uL (4.8-10.8)
--- NOTE | 2022-04-14 07:00 | CA_ITS ---
Transthoracic Echocardiogram Patient (Last, First, Middle): Sage Bartholomew G Gender: Male Date of : 1960 Age: 61 Procedure Date: 04/14/2022 Procedure Type: Transthoracic Echocardiogram Location: ER Height: 190.5 cm Weight: 205. kg BSA: 3.10 m2 Heart Rate: 117 bpm BP: 115 / 76 mmHg Clinical Documentation Manager: Referring MD: Jennifer ORTEGA Symptoms: chf, afib Study Quality: Technically Difficult/Contrast ECG Rhythm: Atrial Fibrillation Conclusions: - Normal left ventricular size and systolic function. There is severely increased left ventricular wall thickness. The visually estimated ejection fraction is between 55-60%. - Normal right ventricular cavity size and systolic function. - Mildly elevated right atrial pressure. - The inferior vena cava is dilated. Findings Procedure Information Contrast agent, definity, is being given per protocol without apparent complications. Left Ventricle Normal left ventricular size and systolic function. There is severely increased left ventricular wall thickness. The visually estimated ejection fraction is between 55-60%. There is no evidence of regional wall motion abnormalities. There is paradoxical septal motion consistent with a left bundle branch block. Diastolic function is indeterminate on the basis of available data. Right Ventricle Normal right ventricular cavity size and systolic function. Atria The left atrium was not well visualized. Aortic Valve The aortic valve was not well visualized. There is no aortic valve stenosis. There is no aortic valve regurgitation. Mitral Valve The mitral valve was not well visualized. There is no mitral valve regurgitation. There is no mitral valve stenosis. Pulmonic Valve The pulmonic valve was not well visualized. Tricuspid Valve The tricuspid valve was not well visualized. Tricuspid regurgitation envelope is inadequate for calculation of right ventricular systolic pressure. Mildly elevated right atrial pressure. Venous The inferior vena cava is dilated. Pericardium/Pleural There is no evidence of pericardial effusion. Prior Study Comparison No significant change compared to prior study dated: 03/24/2020. Measurements 2D Linear Measurements IVSd: 1.79 0.6-0.9/0.6-1.0 cm LVIDd: 4.05 3.9-5.3/4.2-5.9 cm LVIDd Index: 1.31 2.4-3.2/2.2-3.1 cm/m2 LVIDs: 2.92 2.0-3.6 cm LVPWd: 1.75 0.7-1.1 cm LA Diam: 4.00 2.7-3.8/3.0-4.0 cm LAIDs Index: 1.29 1.5-2.3 cm/m2 LV Mass: 385.65 67-162/88-224 g LV Mass Index: 124.40 43-95/49-115 g/m2 LVOT Diam: 2.50 3.0+(-)1.3 cm Mitral Valve MV Pk E: 0.84 MV Decel Time: 98.00 E'Lateral: 6.53 E'Medial: 9.46 E/E' Med: 8.90 E/E' Lat: 12.90 PHT: 29.00 MVA PHT: 7.59 Decel [place]: 8.55 Aortic Valve AoV Pk Tyree: 1.22 AoV Mn [place]ree: 0.79 AoV VTI: 0.19 AoV Pk Grad: 6.00 Aov Mn Grad: 3.00 FAN Cont.VTI: 3.42 LVOT LVOT Pk [place]: 0.86 LVOT Mn [place]: 0.57 LVOT VTI: 0.14 LVOT Pk Grad: 3.00 LVOT Mn Grad: 2.00 LVOT Diam: 2.50 LVOT Area: 4.91 Diastolic Function MV Pk E: 0.84 E'Medial: 9.46 E/E' Med: 8.90 E' Laterial: 6.53 E/E' Lat: 12.90 Right Ventricle TAPSE (mm): 25.00 TVS' [place]: 12.70 Tricuspid Valve TR Pk [place]: 2.54 TR Pk Grad: 26.00 Great Vessels Aorta Sinus of Valsalva: 3.80 2.0-3.5 cm Pulmonary Valve PV Pk [place]ree: 0.71 Peak PV Grad: 2.00 Updated in Other Vendor System with Status of Final Jasper Wagner MD electronically signed on 04/14/2022 3:44:42 PM with status of Final
[2022-04-14 07:06] VITALS: BP 104/69; PULSE 104; RESP 18; TEMP 36.5; O2SAT 98
[2022-04-14 07:13] LABS: Glucose, Whole Blood 192 mg/dL (60-115)
[2022-04-14 07:17] LABS: Anion Gap 16 (12-20); Blood Urea Nitrogen 10 mg/dL (9-16); Calcium 8.6 mg/dL (8.4-10.2); Carbon Dioxide 26 mmol/L (22-29); Chloride 100 mmol/L (96-108); Cholesterol 202 mg/dL; Creatinine Clr Calc Pharmacy 191.2; Estimated Glomerular Filt Rate > 60; Glucose Random 210 mg/dL (60-115); HDL Cholesterol 67 mg/dL; LDL Cholesterol Calculated 106 mg/dl; Potassium 5.2 mmol/L (3.3-5.1); Sodium 137 mmol/L (135-145); Triglycerides 146 mg/dL
[2022-04-14 07:18] LABS: B Type Natriuretic Peptide 241 pg/mL (<100)
[2022-04-14] MEDS: DULoxetine HCl 60 MG CAPSULE.DR PO ×2 (07:50→20:37)
[2022-04-14] MEDS: Aspirin Enteric Coated 81 MG TABLET.DR PO (07:50)
[2022-04-14] MEDS: Phenytoin Sodium Extended 100 MG CAPSULE 200 MG PO (07:50)
[2022-04-14] MEDS: Apixaban 5 MG TABLET PO ×2 (07:51→20:37)
[2022-04-14] MEDS: Atorvastatin Calcium 20 MG TABLET PO (07:51)
[2022-04-14] MEDS: Metoprolol Succinate ER 50 MG TAB.ER.24H PO ×2 (07:51→17:44)
[2022-04-14] MEDS: Cholecalciferol (Vitamin D3) 25 MCG TABLET 50 MCG PO (07:51)
[2022-04-14] MEDS: Cyanocobalamin (Vitamin B-12) 1,000 MCG TABLET 1000 MCG PO (07:51)
[2022-04-14] MEDS: Isosorbide Mononitrate 60 MG TAB.ER.24H PO (07:51)
[2022-04-14] MEDS: Insulin Lispro 100 UNIT/ML 3 ML VIAL SUBCUT ×3 (07:55→20:37)
--- NOTE | 2022-04-14 07:56 | ECG_ITS ---
Test Reason : repeat, tachycardia Blood Pressure : / mmHG Vent. Rate : 120 BPM Atrial Rate : 000 BPM P-R Int : 000 ms QRS Dur : 148 ms QT Int : 320 ms P-R-T Axes : 000 267 049 degrees QTc Int : 452 ms Atrial fibrillation with rapid ventricular response Right bundle branch block Inferior infarct (cited on or before 24-MAR-2020) Abnormal ECG When compared with ECG of 13-APR-2022 17:39, No significant changes seen Referred By: Madeline Quijano Electronically Signed By:YAYO SAUNDERS MD
[2022-04-14] MEDS: Furosemide 40 MG/4 ML VIAL IVPUSH (07:58)
[2022-04-14] MEDS: dilTIAZem HCL 50 MG/10 ML VIAL 10 MG IVPUSH (08:02)
[2022-04-14 08:07] VITALS: BP 104/69; PULSE 104; O2SAT 98
[2022-04-14] MEDS: LORazepam 1 MG TABLET 4 MG PO ×2 (08:08→20:37)
[2022-04-14] MEDS: Metoprolol Tartrate 25 MG TABLET PO (10:11)
[2022-04-14] MEDS: Sodium Zirconium Cyclosilicate 5 GM POWD.PACK PO (10:12)
[2022-04-14] MEDS: HYDROmorphone HCl 0.5 MG/0.5 ML SYRINGE 0.25 MG IVPUSH ×3 (10:51→20:36)
--- NOTE | 2022-04-14 11:21 | MHC.CM.PN ---
This expert medical writer met with patient for CM assessment. Pt lives @ home alone. Has [facility] 2-3 days a week and SECRETARY TO THE VICE PRESIDENT services M-F daily for a few hours a day. @ baseline is in a wheelchair and can stand and pivot. He reports he's supposed to wear O2 at home but does not. HCP on file and verified. PCP is Dr. Mendiola out of [place]. Vax'd x4 w/ 1 booster. His goal is to return home and is open to keeping VNA @ 3x weekly and adding PT services. He does not want to go to [facility]. JORDAN Rausch made aware.
[2022-04-14 12:27] LABS: Phenytoin Dilantin 8.9 ug/mL (10.0-20.0)
--- NOTE | 2022-04-14 12:56 | PM.CNCAR ---
History of Present Illness History of Present Illness Date of Service: 04/14/22 Requesting physician: Jennifer Rausch Chief complaint: weakness, ?TIA, Afib rvr Narrative: 61-year-old gentleman presenting for fall and reported syncope. He has known history of seizure disorder and has been phenytoin. He also has known history of atrial fibrillation has been Eliquis and metoprolol succinate 50 mg daily. He had cardiac catheterization in February 2022 at [facility] by Dr. Lni which showed no significant coronary disease. He is saying he was in his wheelchair and does not remember anything and found himself on the floor with forehead injury as well as his arm trapped behind his body. He said his PHOTOGRAMMETRIC ENGINEER following him in this condition and brought him to the emergency department. Is noted to be in AFib with rapid ventricular response. Denying any dyspnea or chest discomfort. He does not have any teeth and there is no tongue bite. No urinary or fecal incontinence. He reports that he has been taking medications regularly. His blood workup has shown low phenytoin levels. BNP 241. Potassium 5.2. BUN 10 creatinine 0.74. Hemoglobin 9.8. Platelet count 405. PMFSH Past Medical History Medical History Anxiety Arthritis Asthma Coronary artery disease Diabetes mellitus, type 2 Hypertension Obesity PTSD (post-traumatic stress disorder) TIA (transient ischemic attack) Social History Social History Household Members: None Housing: Apartment Do you presently have visiting nurse or other home services: Yes (home health aide) Alcohol intake: never Smoked in Last 30 Days: No Second Hand Smoke Exposure: No Use of substances other than those prescribed or required for medical reasons: No Advance Directives: Yes Advance Directives on File: Yes Advance Directives Date on File: 04/14/22 service: No Current occupational status: disabled Meds Allergies Allergy/AdvReac Type Severity Reaction Status Date / Time aspirin Allergy Severe OCCASIONAL Verified 04/08/22 14:18 RASH / TONGUE SWELLING, Hives, throat swellig bee pollen [BEE STINGS] Allergy Severe ANAPHYLAXIS Verified 04/08/22 14:18 penicillin V Allergy Severe Hives Verified 04/08/22 14:18 Penicillins Allergy Severe ANAPHYLAXIS Verified 04/08/22 14:18 povidone-iodine [Betadine] Allergy Severe Redness of Verified 04/08/22 14:18 Skin soap [Betadine] Allergy Severe Redness of Verified 04/08/22 14:18 Skin spider venom [SPIDER BITES] Allergy Severe Hives Verified 04/08/22 14:18 amoxicillin Allergy Intermediate Hives Verified 04/08/22 14:18 clindamycin Allergy Mild RASH Verified 04/08/22 14:18 latex [Latex] Allergy Mild RASH Verified 04/08/22 14:18 bupropion [From WELLBUTRIN] AdvReac Severe SEIZURES Verified 04/08/22 14:18 Latex Allergy Severe Hives Uncoded 03/24/20 11:50 Latex Gloves Allergy Intermediate Hives Uncoded 03/24/20 11:50 TAPE Allergy Intermediate Redness of Uncoded 03/24/20 11:50 Skin Active Medications: Current Medications Acetaminophen (Acetaminophen 325 Mg Tablet) 650 mg PO Q6H PRN PRN Reason: Pain, Mild (Pain Scale 1-3) Apixaban (Apixaban 5 Mg Tablet) 5 mg PO BID [facility] Last Admin: 04/14/22 07:51 Dose: 5 mg Aspirin (Aspirin Enteric Coated 81 Mg Tablet.) 81 mg PO DAILY [facility] Last Admin: 04/14/22 07:50 Dose: 81 mg Atorvastatin Calcium (Atorvastatin Calcium 20 Mg Tablet) 20 mg PO DAILY [facility] Last Admin: 04/14/22 07:51 Dose: 20 mg Cyanocobalamin (Cyanocobalamin (Vitamin B-12) 1,000 Mcg Tablet) 1,000 mcg PO DAILY [facility] Last Admin: 04/14/22 07:51 Dose: 1,000 mcg Dextrose (Dextrose 50 % 25 Gm/50 Ml Syringe) 25 gm IVPUSH Q15M PRN; Protocol PRN Reason: per Hypoglycemia Standing Ord. Duloxetine HCl (Duloxetine Hcl 60 Mg Capsule.) 60 mg PO BID [facility] Last Admin: 04/14/22 07:50 Dose: 60 mg Fluticasone Propionate (Fluticasone Propionate Nasal 16 Gm [place]) 1 spray NOSTRIL-B BID [facility] Last Admin: 04/14/22 10:28 Dose: Not Given Furosemide (Furosemide 40 Mg/4 Ml Vial) 40 mg IVPUSH BID@0900,1800 [facility]; Protocol Last Admin: 04/14/22 07:58 Dose: 40 mg Gabapentin (Gabapentin 400 Mg Capsule) 400 mg PO 5XD [facility] Last Admin: 04/14/22 10:27 Dose: 400 mg Glucose (Glucose Gel 15 Gm Gel..Gram.) 15 gm PO Q15M PRN; Protocol PRN Reason: per Hypoglycemia Standing Ord. Hydromorphone HCl (Hydromorphone Hcl 0.5 Mg/0.5 Ml Syringe) 0.25 mg IVPUSH Q4H PRN; Protocol PRN Reason: Pain, Severe (Pain Scale 7-10) Last Admin: 04/14/22 10:51 Dose: 0.25 mg Hydroxyzine HCl (Hydroxyzine Hcl 25 Mg Tablet) 25 mg PO TID PRN PRN Reason: anxiety Insulin Human Lispro (Insulin Lispro 100 Unit/Ml 3 Ml Vial) 0 unit SUBCUT QIDACHS [facility]; Protocol Last Admin: 04/14/22 07:55 Dose: 2 unit Isosorbide Mononitrate (Isosorbide Mononitrate 60 Mg Tab.Er.24h) 60 mg PO DAILY [facility]; Protocol Last Admin: 04/14/22 07:51 Dose: 60 mg Lorazepam (Lorazepam 1 Mg Tablet) 4 mg PO TID PRN PRN Reason: Anxiety Last Admin: 04/14/22 08:08 Dose: 4 mg Metoprolol Succinate (Metoprolol Succinate Er 50 Mg Tab.Er.24h) 50 mg PO DAILY [facility]; Protocol Last Admin: 04/14/22 07:51 Dose: 50 mg Omeprazole (Omeprazole 20 Mg Capsule.Dr) 20 mg PO DAILY@0630 [facility] Last Admin: 04/14/22 05:34 Dose: 20 mg Ondansetron HCl (Ondansetron Hcl 4 Mg/2 Ml Vial) 4 mg IVPUSH Q8H PRN PRN Reason: Nausea and Vomiting Oxycodone HCl (Oxycodone Hcl Immed Release 5 Mg Tablet) 5 mg PO BID PRN PRN Reason: Pain, Moderate (Pain Scale 4-6 Pharmacy Consult (Consult Rx Perform Med Rec) 1 each MISCELLANE ONCE PRN PRN Reason: Consult order Phenytoin Sodium (Phenytoin Sodium Extended 100 Mg Capsule) 200 mg PO DAILY@0730 [facility] Last Admin: 04/14/22 07:50 Dose: 200 mg Phenytoin Sodium (Phenytoin Sodium Extended 100 Mg Capsule) 400 mg PO BEDTIME [facility] Last Admin: 04/13/22 21:31 Dose: 400 mg Quetiapine Fumarate (Quetiapine Fumarate 100 Mg Tablet) 100 mg PO BEDTIME PRN PRN Reason: insomnia Sodium Chloride (0.9 % Sodium Chloride Flush 3 Ml Syringe) 3 ml IVFLUSH QSHIFT [facility] Last Admin: 04/14/22 10:27 Dose: 3 ml Sodium Zirconium Cyclosilicate (Sodium Zirconium Cyclosilicate 5 Gm Powd.Pack) 5 gm PO DAILY [facility] Last Admin: 04/14/22 10:12 Dose: 5 gm Trazodone HCl (Trazodone Hcl 100 Mg Tablet) 100 mg PO BEDTIME [facility] Last Admin: 04/13/22 21:31 Dose: 100 mg Vitamin D (Cholecalciferol (Vitamin D3) 25 Mcg Tablet) 50 mcg PO DAILY [facility] Last Admin: 04/14/22 07:51 Dose: 50 mcg Home Medications Medication Instructions Recorded Confirmed Last Taken Type atorvastatin 20 mg tablet 20 mg PO DAILY 03/23/20 04/13/22 04/12/22 History cholecalciferol (vitamin D3) 50 50 mcg PO DAILY 03/23/20 04/13/22 04/12/22 History mcg (2,000 unit) tablet cyanocobalamin (vitamin B-12) 1,000 mcg PO DAILY 03/23/20 04/13/22 04/12/22 History 1,000 mcg tablet,extended release (Vitamin B-12 ER) furosemide 40 mg tablet 40 mg PO BID 03/23/20 04/13/22 04/12/22 History hydroxyzine HCl 25 mg tablet 25 mg PO TID PRN anxiety 03/23/20 04/13/22 04/12/22 History isosorbide mononitrate 60 mg 60 mg PO QAM 03/23/20 04/13/22 04/12/22 History tablet,extended release 24 hr metformin 1,000 mg tablet 1,000 mg PO QAM 03/23/20 04/13/22 04/12/22 History metoprolol succinate 50 mg 50 mg PO DAILY 03/23/20 04/13/22 04/12/22 History tablet,extended release 24 hr nystatin 100,000 unit/gram topical 100,000 unit topical BID PRN Rash 03/23/20 04/13/22 04/15/20 History powder (Nyamyc) pantoprazole 40 mg tablet,delayed 40 mg PO DAILY 03/23/20 04/13/22 04/12/22 History release phenytoin sodium extended 100 mg 200 mg PO DAILY@0730 03/23/20 04/13/22 04/12/22 History capsule phenytoin sodium extended 100 mg 400 mg PO BEDTIME 03/23/20 04/13/22 04/12/22 History capsule trazodone 50 mg tablet 100 mg PO BEDTIME 03/23/20 04/13/22 04/11/22 History albuterol sulfate 90 mcg/actuation 2 puff inhalation Q4-6H PRN 04/13/22 04/13/22 Unknown History aerosol inhaler Shortness Of Breath Or Wheezing apixaban 5 mg tablet (Eliquis) 5 mg PO BID 04/13/22 04/13/22 04/12/22 History duloxetine 60 mg capsule,delayed 60 mg PO BID 04/13/22 04/13/22 04/12/22 History release fluticasone propionate 50 1 spray intranasal BID 04/13/22 04/13/22 Unknown History mcg/actuation nasal spray,suspension gabapentin 400 mg capsule 400 mg PO 5XD 04/13/22 04/13/22 04/12/22 History lorazepam 2 mg tablet 4 mg PO TID PRN Anxiety 04/13/22 04/13/22 04/12/22 History oxycodone 5 mg tablet 5 mg PO BID PRN severe pain 04/13/22 04/13/22 04/12/22 History quetiapine 100 mg tablet 100 mg PO BEDTIME PRN insomnia 04/13/22 04/13/22 04/11/22 History Physical Exam Vital Signs: Vital Signs: Last Vital Signs Temp 97.7 F 04/14/22 07:06 Pulse 104 H 04/14/22 08:07 Resp 18 04/14/22 07:06 BP 104/69 04/14/22 08:07 Pulse Ox 98 04/14/22 08:07 O2 Del Method 04/14/22 07:06 O2 Flow Rate 2 04/14/22 07:06 BMI result Body Mass Index 56.2 GENERAL APPEARANCE: in no acute distress, laying flat in bed. Morbidly obese. NECK: no carotid bruit, no jugular venous distention. SKIN: no suspicious lesions, warm and dry. HEART: no murmurs, irregular rate and rhythm. LUNGS: clear to auscultation bilaterally. ABDOMEN: soft, nontender. EXTREMITIES: no significant edema. PERIPHERAL PULSES: equal. NEUROLOGIC: No gross deficits, AAO X 3 Objective Labs and Meds Result diagrams: 04/14/22 05:57 04/14/22 05:57 Lab results: Laboratory Results - last 24 hr 04/13/22 04/13/22 04/14/22 19:31 21:39 05:57 WBC RBC Hgb Hct MCV MCH MCHC RDW Plt Count MPV Immature Gran % (Auto) Neut % (Auto) Lymph % (Auto) [place] % (Auto) Eos % (Auto) Baso % (Auto) Lymph # (Auto) [place] # (Auto) Eos # (Auto) Baso # (Auto) Abs Immat Gran (auto) Absolute Neuts (auto) Absolute Nucleated RBC Nucleated RBC % (auto) Sodium 137 Potassium 5.2 H Chloride 100 Carbon Dioxide 26 Anion Gap 16 BUN 10 Creatinine 0.74 Estim Creat Clear Calc 191.2 Estimated GFR > 60 POC Glucose 194 H Random Glucose 210 H D Calcium 8.6 Magnesium 2.0 B-Natriuretic Peptide 279 H Triglycerides 146 Cholesterol 202 LDL Cholesterol, Calc 106 HDL Cholesterol 67 Phenytoin 04/14/22 04/14/22 04/14/22 05:57 05:57 07:05 WBC 6.8 RBC 4.82 Hgb 9.8 L Hct 36.0 L MCV 74.7 L MCH 20.3 L MCHC 27.2 L RDW 19.2 H Plt Count 405 H MPV 10.3 Immature Gran % (Auto) 0.3 Neut % (Auto) 72.0 Lymph % (Auto) 20.4 [place] % (Auto) 6.0 Eos % (Auto) 1.2 Baso % (Auto) 0.1 Lymph # (Auto) 1.4 [place] # (Auto) 0.4 Eos # (Auto) 0.1 Baso # (Auto) 0.0 Abs Immat Gran (auto) 0.02 Absolute Neuts (auto) 4.9 Absolute Nucleated RBC 0.000 Nucleated RBC % (auto) 0.0 Sodium Potassium Chloride Carbon Dioxide Anion Gap BUN Creatinine Estim Creat Clear Calc Estimated GFR POC Glucose 192 H Random Glucose Calcium Magnesium B-Natriuretic Peptide 241 H Triglycerides Cholesterol LDL Cholesterol, Calc HDL Cholesterol Phenytoin 04/14/22 10:27 WBC RBC Hgb Hct MCV MCH MCHC RDW Plt Count MPV Immature Gran % (Auto) Neut % (Auto) Lymph % (Auto) [place] % (Auto) Eos % (Auto) Baso % (Auto) Lymph # (Auto) [place] # (Auto) Eos # (Auto) Baso # (Auto) Abs Immat Gran (auto) Absolute Neuts (auto) Absolute Nucleated RBC Nucleated RBC % (auto) Sodium Potassium Chloride Carbon Dioxide Anion Gap BUN Creatinine Estim Creat Clear Calc Estimated GFR POC Glucose Random Glucose Calcium Magnesium B-Natriuretic Peptide Triglycerides Cholesterol LDL Cholesterol, Calc HDL Cholesterol Phenytoin 8.9 L Assessment and Plan (1) Fall: Status: Acute (2) Atrial fibrillation with rapid ventricular response: Status: Acute Plan 61-year-old gentleman who is presenting for fall. He is wheelchair-bound and apparently fell out of the wheelchair and hit his head. He is not sure about the circumstances of the fall and as per my discussion he was not sure whether he passed out or not. He has known history of seizure disorder and has been on phenytoin and his phenytoin level is low. There is no urinary or fecal incontinence to suggest seizure. Overall unclear how he fell. He has noticed to be in AFib with RVR. He has some background of atrial fibrillation known based on records from [facility]. On Eliquis 5 mg twice a day. I do not think he is clinically in volume overload and would change him back to oral diuretics at this stage. Increasing the Toprol-XL to 50 mg twice a day and decreasing the Imdur to 30 mg because his blood pressure does not have a lot of room currently. We will see if his fatigue and weakness improves. If he does not improve then he will require cardioversion. We need to confirm whether he has been taking the Eliquis uninterrupted in the last 4 weeks. If he has not stop Eliquis her missed Eliquis in the last 4 weeks and I will consider cardioversion. No history of significant coronary disease based on cardiac catheterization from February 2022. Thank you for allowing me to participate in the care of your patient. Please feel free to contact me if you have any questions. Procedures Date of Service Date of Service: 04/14/22
--- NOTE | 2022-04-14 13:29 | P.PNIM_ITS ---
Subjective Subjective Date of Service: 04/14/22 Interval History: Seen in follow up for generalized weakness with fall and AFib with RVR Interval history: Continue to deny sob, boykin, orthopnea. Still subjectively weak. Continues with PAF with intermittent RVR. Feels postauricular pulsations. Reporting pain from fall rated 10/10. Review of Systems General: No fevers, malaise, unintentional weight loss HEENT: No blurred vision, diplopia. No sore throat, nasal congestion, rhinorrhea, sinus pain, ear pain Cardiovascular: +palpitations, +leg edema. No chest pain Respiratory: No shortness of breath, orthopnea, wheezing, cough GI: No abdominal pain, nausea, vomiting, diarrhea, constipation, melena, hematochezia : No dysuria, hematuria, increased urinary frequency, decreased urinary output MSK: No myalgia, back pain Neuro: +b/l weakness upper and lower extremities, + paresthesias BUE.? No headaches Skin: No rashes or lesions Physical Exam Vital Signs: Vital Signs: Last Vital Signs Temp 97.7 F 04/14/22 07:06 Pulse 104 H 04/14/22 08:07 Resp 18 04/14/22 07:06 BP 104/69 04/14/22 08:07 Pulse Ox 98 04/14/22 08:07 O2 Del Method 04/14/22 07:06 O2 Flow Rate 2 04/14/22 07:06 BMI result Body Mass Index 56.2 Constitutional - Awake and Alert, No apparent distress Eyes - PERRLA, EOMI Cardiovascular - S1S2, RRR, 1+ ble edema Respiratory - Normal lung expansion, Normal respiratory effort, No respiratory distress, CTA bilaterally Gastrointestinal - NT / ND; +BS; No rebound or guarding Extremities - no calf tenderness bilaterally, no swelling Skin - Warm/Dry. 3cm healing laceration left brow without active bleeding. Neurological - Alert & oriented x3, CN II-XII in tact, 4/5 strength BUE and BLE Psychological - Appropriate affect Objective Data Active Medications Acetaminophen (Acetaminophen 325 Mg Tablet) 650 mg PO Q6H PRN PRN Reason: Pain, Mild (Pain Scale 1-3) Apixaban (Apixaban 5 Mg Tablet) 5 mg PO BID [facility]OH[facility] Last Admin: 04/14/22 07:51 Dose: 5 mg Documented By: LEENA Aspirin (Aspirin Enteric Coated 81 Mg Tablet.) 81 mg PO DAILY [facility] Last Admin: 04/14/22 07:50 Dose: 81 mg Documented By: LEENA Atorvastatin Calcium (Atorvastatin Calcium 20 Mg Tablet) 20 mg PO DAILY [facility] Last Admin: 04/14/22 07:51 Dose: 20 mg Documented By: LEENA Cyanocobalamin (Cyanocobalamin (Vitamin B-12) 1,000 Mcg Tablet) 1,000 mcg PO DAILY [facility] Last Admin: 04/14/22 07:51 Dose: 1,000 mcg Documented By: LEENA Dextrose (Dextrose 50 % 25 Gm/50 Ml Syringe) 25 gm IVPUSH Q15M PRN; Protocol PRN Reason: per Hypoglycemia Standing Ord. Duloxetine HCl (Duloxetine Hcl 60 Mg Capsule.) 60 mg PO BID [facility] Last Admin: 04/14/22 07:50 Dose: 60 mg Documented By: LEENA Fluticasone Propionate (Fluticasone Propionate Nasal 16 Gm [place]) 1 spray NOSTRIL-B BID [facility] Last Admin: 04/14/22 10:28 Dose: Not Given Documented By: LEENA Non-Admin Reason: Med Not Available Furosemide (Furosemide 40 Mg/4 Ml Vial) 40 mg IVPUSH BID@0900,1800 [facility]; Protocol Last Admin: 04/14/22 07:58 Dose: 40 mg Documented By: LEENA Gabapentin (Gabapentin 400 Mg Capsule) 400 mg PO 5XD [facility] Last Admin: 04/14/22 10:27 Dose: 400 mg Documented By: LEENA Glucose (Glucose Gel 15 Gm Gel..Gram.) 15 gm PO Q15M PRN; Protocol PRN Reason: per Hypoglycemia Standing Ord. Hydromorphone HCl (Hydromorphone Hcl 0.5 Mg/0.5 Ml Syringe) 0.25 mg IVPUSH Q4H PRN; Protocol PRN Reason: Pain, Severe (Pain Scale 7-10) Last Admin: 04/14/22 10:51 Dose: 0.25 mg Documented By: LEENA Hydroxyzine HCl (Hydroxyzine Hcl 25 Mg Tablet) 25 mg PO TID PRN PRN Reason: anxiety Insulin Human Lispro (Insulin Lispro 100 Unit/Ml 3 Ml Vial) 0 unit SUBCUT QIDACHS [facility]; Protocol Last Admin: 04/14/22 07:55 Dose: 2 unit Documented By: LEENA Isosorbide Mononitrate (Isosorbide Mononitrate 30 Mg Tab.Er.24h) 30 mg PO DAILY [facility]; Protocol Lorazepam (Lorazepam 1 Mg Tablet) 4 mg PO TID PRN PRN Reason: Anxiety Last Admin: 04/14/22 08:08 Dose: 4 mg Documented By: LEENA Metoprolol Succinate (Metoprolol Succinate Er 50 Mg Tab.Er.24h) 50 mg PO BIDWM [facility]; Protocol Omeprazole (Omeprazole 20 Mg Capsule.Dr) 20 mg PO DAILY@0630 [facility] Last Admin: 04/14/22 05:34 Dose: 20 mg Documented By: GURJIT Ondansetron HCl (Ondansetron Hcl 4 Mg/2 Ml Vial) 4 mg IVPUSH Q8H PRN PRN Reason: Nausea and Vomiting Oxycodone HCl (Oxycodone Hcl Immed Release 5 Mg Tablet) 5 mg PO BID PRN PRN Reason: Pain, Moderate (Pain Scale 4-6 Pharmacy Consult (Consult Rx Perform Med Rec) 1 each MISCELLANE ONCE PRN PRN Reason: Consult order Phenytoin Sodium (Phenytoin Sodium Extended 100 Mg Capsule) 200 mg PO DAILY@0730 [facility] Last Admin: 04/14/22 07:50 Dose: 200 mg Documented By: LEENA Phenytoin Sodium (Phenytoin Sodium Extended 100 Mg Capsule) 400 mg PO BEDTIME [facility] Last Admin: 04/13/22 21:31 Dose: 400 mg Documented By: KEVIN Quetiapine Fumarate (Quetiapine Fumarate 100 Mg Tablet) 100 mg PO BEDTIME PRN PRN Reason: insomnia Sodium Chloride (0.9 % Sodium Chloride Flush 3 Ml Syringe) 3 ml IVFLUSH QSHIFT [facility] Last Admin: 04/14/22 10:27 Dose: 3 ml Documented By: LEENA Sodium Zirconium Cyclosilicate (Sodium Zirconium Cyclosilicate 5 Gm Powd.Pack) 5 gm PO DAILY [facility] Last Admin: 04/14/22 10:12 Dose: 5 gm Documented By: LEENA Trazodone HCl (Trazodone Hcl 100 Mg Tablet) 100 mg PO BEDTIME [facility] Last Admin: 04/13/22 21:31 Dose: 100 mg Documented By: KEVIN Vitamin D (Cholecalciferol (Vitamin D3) 25 Mcg Tablet) 50 mcg PO DAILY [facility] Last Admin: 04/14/22 07:51 Dose: 50 mcg Documented By: LEENA Labs CBC & Chem 7: 04/14/22 05:57 04/14/22 05:57 Labs: Laboratory Results - last 24 hr 04/13/22 04/13/22 04/14/22 19:31 21:39 05:57 MCV MCH MCHC RDW Plt Count MPV Immature Gran % (Auto) Neut % (Auto) Lymph % (Auto) [place] % (Auto) Eos % (Auto) Baso % (Auto) Lymph # (Auto) [place] # (Auto) Eos # (Auto) Baso # (Auto) Abs Immat Gran (auto) Absolute Neuts (auto) Absolute Nucleated RBC Nucleated RBC % (auto) Anion Gap 16 Estim Creat Clear Calc 191.2 Estimated GFR > 60 POC Glucose 194 H Random Glucose 210 H D Calcium 8.6 Magnesium 2.0 B-Natriuretic Peptide 279 H Triglycerides 146 Cholesterol 202 LDL Cholesterol, Calc 106 HDL Cholesterol 67 Phenytoin 04/14/22 04/14/22 04/14/22 05:57 05:57 07:05 MCV 74.7 L MCH 20.3 L MCHC 27.2 L RDW 19.2 H Plt Count 405 H MPV 10.3 Immature Gran % (Auto) 0.3 Neut % (Auto) 72.0 Lymph % (Auto) 20.4 [place] % (Auto) 6.0 Eos % (Auto) 1.2 Baso % (Auto) 0.1 Lymph # (Auto) 1.4 [place] # (Auto) 0.4 Eos # (Auto) 0.1 Baso # (Auto) 0.0 Abs Immat Gran (auto) 0.02 Absolute Neuts (auto) 4.9 Absolute Nucleated RBC 0.000 Nucleated RBC % (auto) 0.0 Anion Gap Estim Creat Clear Calc Estimated GFR POC Glucose 192 H Random Glucose Calcium Magnesium B-Natriuretic Peptide 241 H Triglycerides Cholesterol LDL Cholesterol, Calc HDL Cholesterol Phenytoin 04/14/22 10:27 MCV MCH MCHC RDW Plt Count MPV Immature Gran % (Auto) Neut % (Auto) Lymph % (Auto) [place] % (Auto) Eos % (Auto) Baso % (Auto) Lymph # (Auto) [place] # (Auto) Eos # (Auto) Baso # (Auto) Abs Immat Gran (auto) Absolute Neuts (auto) Absolute Nucleated RBC Nucleated RBC % (auto) Anion Gap Estim Creat Clear Calc Estimated GFR POC Glucose Random Glucose Calcium Magnesium B-Natriuretic Peptide Triglycerides Cholesterol LDL Cholesterol, Calc HDL Cholesterol Phenytoin 8.9 L Assessment and Plan (1) Multifactorial gait disorder: Status: Acute (2) Weakness: Status: Acute (3) Atrial fibrillation with rapid ventricular response: Status: Acute Plan 61-year-old male with history atrial fibrillation anticoagulated with Eliquis, history of DVT, hyperlipidemia, [id number] type 2 diabetes, coronary artery disease, seizure disorder on phenytoin, GERD, depression/anxiety admitted for weakness and AFib with RVR. 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 Unclear if seizure given unclear circumstances around fall. Recommend better controlling glucose levels, treating right knee injury (no fx/dislocation on xray), and PT/OT. Phenytion level therapeutic given albumin level. -Per neurology less likely related to acute CVA/TIA vs seizure. Continue following outpt with neuro -?r/t AFib with RVR- see below -Continue PT/OT #Paroxysmal Afib with RVR -EKG showing AFIB with RVR this am -last echocardiogram 07/2021 showing normal systolic function with EF 55-60%.? Otherwise limited study. Repeat pending -Increase toprol to 50mg BID per cardiology -Cardiology consulted -continue Eliquis for anticoagulation -admit to telemetry # seizure disorder-question if fall from WC r/t seizure as phenytoin level low. No tongue biting or further seizure activity -continue phenytoin -Apprecaite neurology input -seizure precautions #Elevated BNP -BNP trending down -No orthopnea/PND, no evidence of fluid overload. Has ble edema chronically likely r/t venous disease/diabetes -Continue home furosemide 40mg BID PO -Cardiology consulted -Echo pending # hyponatremia-likely pseudohyponatremia secondary to hyperglycemia- resolved -follow BMP # hyperkalemia -K improved to 5.2. Renal function normal -Lokelma 5mg daily -follow BMP #Microcytic anemia- stable -No active bleeding -Continue eliquis -Iron studies ordered -Replete iron as appropriate # type 2 diabetes with rhqfcmlnaaqyb-ywi-ofaiarm-dependent- uncontrolled -POC glucose -diabetic/cardiac diet -Humalog on sliding scale -Poorly controlled. Glucose not at goal. Add lantus 10 units nightly -hold metformin # history of DVT -continue Eliquis #coronary artery disease/hyperlipidemia -continue isosorbide, metoprolol.? Add aspirin # diabetic neuropathy -continue gabapentin # depression/anxiety Continue quetiapine, trazodone, lorazepam, duloxetine DVT prophylaxis-on Eliquis Full code Dispo: Continue plan as above. PT recommending home PT/OT for services. Pt refuses STR and does already have [facility] services in place. Continue working with cardiology to control HR for management of AFIB. Patient requires ongoing inpatient stay for management of generalized weakness with PT/OT services and ongoing PAF with RVR requiring IV rate control and close cardiac monitoring. Quality Stroke Does the patient have a stroke diagnosis?: No VTE Prior VTE?: No VTE Risk Level:: Medical - moderate - high VTE Device Contraindication: Treatment Not Indicated VTE Drug Contraindication: N/A - Med Ordered
[2022-04-14 13:36] LABS: Glucose, Whole Blood 222 mg/dL (60-115)
--- NOTE | 2022-04-14 13:40 | P.CNNE_ITS ---
History of Present Illness Data of Consult Service Date: 04/14/22 Primary Care Provider: Unknown Physician HPI Reason for consult: Weakness and fall 61 years old man with relatively uncontrolled diabetes, previous history of atrial fibrillation which probably has caused couple of embolic looking cerebral infarctions we see on his scans including 1 in left cerebellum and another were in posterior parietal region on the left side, seizure disorder that had been attributed to lorazepam withdrawal or Wellbutrin, presently on Dilantin with level of 8.6 but also low albumin level which would suggest that this level of Dilantin was therapeutic, came to hospital after he fell. He could not describe what had happened. He was also significantly obese, probably has significant neuropathy and arthritis and combination of factors were affecting him. He was getting help at home for day-to-day chores and care. There was no witnessing of any seizure or convulsion. Review of Systems Review of Systems: He said that he has been going through cold or flu-like illness for couple of weeks. [facility] Past Medical History Medical History Anxiety Arthritis Asthma Coronary artery disease Diabetes mellitus, type 2 Hypertension Obesity PTSD (post-traumatic stress disorder) TIA (transient ischemic attack) Social History Social History Household Members: None Housing: Apartment Do you presently have visiting nurse or other home services: Yes (home health aide) Alcohol intake: never Smoked in Last 30 Days: No Second Hand Smoke Exposure: No Use of substances other than those prescribed or required for medical reasons: No Advance Directives: Yes Advance Directives on File: Yes Advance Directives Date on File: 04/14/22 service: No Current occupational status: disabled Meds Allergies Allergy/AdvReac Type Severity Reaction Status Date / Time aspirin Allergy Severe OCCASIONAL Verified 04/08/22 14:18 RASH / TONGUE SWELLING, Hives, throat swellig bee pollen [BEE STINGS] Allergy Severe ANAPHYLAXIS Verified 04/08/22 14:18 penicillin V Allergy Severe Hives Verified 04/08/22 14:18 Penicillins Allergy Severe ANAPHYLAXIS Verified 04/08/22 14:18 povidone-iodine [Betadine] Allergy Severe Redness of Verified 04/08/22 14:18 Skin soap [Betadine] Allergy Severe Redness of Verified 04/08/22 14:18 Skin spider venom [SPIDER BITES] Allergy Severe Hives Verified 04/08/22 14:18 amoxicillin Allergy Intermediate Hives Verified 04/08/22 14:18 clindamycin Allergy Mild RASH Verified 04/08/22 14:18 latex [Latex] Allergy Mild RASH Verified 04/08/22 14:18 bupropion [From WELLBUTRIN] AdvReac Severe SEIZURES Verified 04/08/22 14:18 Latex Allergy Severe Hives Uncoded 03/24/20 11:50 Latex Gloves Allergy Intermediate Hives Uncoded 03/24/20 11:50 TAPE Allergy Intermediate Redness of Uncoded 03/24/20 11:50 Skin Active Medications: Current Medications Acetaminophen (Acetaminophen 325 Mg Tablet) 650 mg PO Q6H PRN PRN Reason: Pain, Mild (Pain Scale 1-3) Apixaban (Apixaban 5 Mg Tablet) 5 mg PO BID [facility] Last Admin: 04/14/22 07:51 Dose: 5 mg Aspirin (Aspirin Enteric Coated 81 Mg Tablet.) 81 mg PO DAILY [facility] Last Admin: 04/14/22 07:50 Dose: 81 mg Atorvastatin Calcium (Atorvastatin Calcium 20 Mg Tablet) 20 mg PO DAILY [facility] Last Admin: 04/14/22 07:51 Dose: 20 mg Cyanocobalamin (Cyanocobalamin (Vitamin B-12) 1,000 Mcg Tablet) 1,000 mcg PO DAILY [facility] Last Admin: 04/14/22 07:51 Dose: 1,000 mcg Dextrose (Dextrose 50 % 25 Gm/50 Ml Syringe) 25 gm IVPUSH Q15M PRN; Protocol PRN Reason: per Hypoglycemia Standing Ord. Duloxetine HCl (Duloxetine Hcl 60 Mg Capsule.) 60 mg PO BID [facility] Last Admin: 04/14/22 07:50 Dose: 60 mg Fluticasone Propionate (Fluticasone Propionate Nasal 16 Gm [place]) 1 spray NOSTRIL-B BID [facility] Last Admin: 04/14/22 10:28 Dose: Not Given Furosemide (Furosemide 40 Mg Tablet) 40 mg PO BID@0900,1800 [facility]; Protocol Gabapentin (Gabapentin 400 Mg Capsule) 400 mg PO 5XD [facility] Last Admin: 04/14/22 10:27 Dose: 400 mg Glucose (Glucose Gel 15 Gm Gel..Gram.) 15 gm PO Q15M PRN; Protocol PRN Reason: per Hypoglycemia Standing Ord. Hydromorphone HCl (Hydromorphone Hcl 0.5 Mg/0.5 Ml Syringe) 0.25 mg IVPUSH Q4H PRN; Protocol PRN Reason: Pain, Severe (Pain Scale 7-10) Last Admin: 04/14/22 10:51 Dose: 0.25 mg Hydroxyzine HCl (Hydroxyzine Hcl 25 Mg Tablet) 25 mg PO TID PRN PRN Reason: anxiety Insulin Human Lispro (Insulin Lispro 100 Unit/Ml 3 Ml Vial) 0 unit SUBCUT QIDACHS [facility]; Protocol Last Admin: 04/14/22 07:55 Dose: 2 unit Isosorbide Mononitrate (Isosorbide Mononitrate 30 Mg Tab.Er.24h) 30 mg PO DAILY [facility]; Protocol Lorazepam (Lorazepam 1 Mg Tablet) 4 mg PO TID PRN PRN Reason: Anxiety Last Admin: 04/14/22 08:08 Dose: 4 mg Metoprolol Succinate (Metoprolol Succinate Er 50 Mg Tab.Er.24h) 50 mg PO BIDWM [facility]; Protocol Omeprazole (Omeprazole 20 Mg Capsule.Dr) 20 mg PO DAILY@0630 [facility] Last Admin: 04/14/22 05:34 Dose: 20 mg Ondansetron HCl (Ondansetron Hcl 4 Mg/2 Ml Vial) 4 mg IVPUSH Q8H PRN PRN Reason: Nausea and Vomiting Oxycodone HCl (Oxycodone Hcl Immed Release 5 Mg Tablet) 5 mg PO BID PRN PRN Reason: Pain, Moderate (Pain Scale 4-6 Pharmacy Consult (Consult Rx Perform Med Rec) 1 each MISCELLANE ONCE PRN PRN Reason: Consult order Phenytoin Sodium (Phenytoin Sodium Extended 100 Mg Capsule) 200 mg PO DAILY@0730 [facility] Last Admin: 04/14/22 07:50 Dose: 200 mg Phenytoin Sodium (Phenytoin Sodium Extended 100 Mg Capsule) 400 mg PO BEDTIME [facility] Last Admin: 04/13/22 21:31 Dose: 400 mg Quetiapine Fumarate (Quetiapine Fumarate 100 Mg Tablet) 100 mg PO BEDTIME PRN PRN Reason: insomnia Sodium Chloride (0.9 % Sodium Chloride Flush 3 Ml Syringe) 3 ml IVFLUSH QSHIFT [facility] Last Admin: 04/14/22 10:27 Dose: 3 ml Sodium Zirconium Cyclosilicate (Sodium Zirconium Cyclosilicate 5 Gm Powd.Pack) 5 gm PO DAILY [facility] Last Admin: 04/14/22 10:12 Dose: 5 gm Trazodone HCl (Trazodone Hcl 100 Mg Tablet) 100 mg PO BEDTIME [facility] Last Admin: 04/13/22 21:31 Dose: 100 mg Vitamin D (Cholecalciferol (Vitamin D3) 25 Mcg Tablet) 50 mcg PO DAILY [facility] Last Admin: 04/14/22 07:51 Dose: 50 mcg Home Medications Medication Instructions Recorded Confirmed Last Taken Type atorvastatin 20 mg tablet 20 mg PO DAILY 03/23/20 04/13/22 04/12/22 History cholecalciferol (vitamin D3) 50 50 mcg PO DAILY 03/23/20 04/13/22 04/12/22 History mcg (2,000 unit) tablet cyanocobalamin (vitamin B-12) 1,000 mcg PO DAILY 03/23/20 04/13/22 04/12/22 History 1,000 mcg tablet,extended release (Vitamin B-12 ER) furosemide 40 mg tablet 40 mg PO BID 03/23/20 04/13/22 04/12/22 History hydroxyzine HCl 25 mg tablet 25 mg PO TID PRN anxiety 03/23/20 04/13/22 04/12/22 History isosorbide mononitrate 60 mg 60 mg PO QAM 03/23/20 04/13/22 04/12/22 History tablet,extended release 24 hr metformin 1,000 mg tablet 1,000 mg PO QAM 03/23/20 04/13/22 04/12/22 History metoprolol succinate 50 mg 50 mg PO DAILY 03/23/20 04/13/22 04/12/22 History tablet,extended release 24 hr nystatin 100,000 unit/gram topical 100,000 unit topical BID PRN Rash 03/23/20 04/13/22 04/15/20 History powder ([facility] [place] pantoprazole 40 mg tablet,delayed 40 mg PO DAILY 03/23/20 04/13/22 04/12/22 History release phenytoin sodium extended 100 mg 200 mg PO DAILY@0730 03/23/20 04/13/22 04/12/22 History capsule phenytoin sodium extended 100 mg 400 mg PO BEDTIME 03/23/20 04/13/22 04/12/22 History capsule trazodone 50 mg tablet 100 mg PO BEDTIME 03/23/20 04/13/22 04/11/22 History albuterol sulfate 90 mcg/actuation 2 puff inhalation Q4-6H PRN 04/13/22 04/13/22 Unknown History aerosol inhaler Shortness Of Breath Or Wheezing apixaban 5 mg tablet (Eliquis) 5 mg PO BID 04/13/22 04/13/22 04/12/22 History duloxetine 60 mg capsule,delayed 60 mg PO BID 04/13/22 04/13/22 04/12/22 History release fluticasone propionate 50 1 spray intranasal BID 04/13/22 04/13/22 Unknown History mcg/actuation nasal spray,suspension gabapentin 400 mg capsule 400 mg PO 5XD 04/13/22 04/13/22 04/12/22 History lorazepam 2 mg tablet 4 mg PO TID PRN Anxiety 04/13/22 04/13/22 04/12/22 History oxycodone 5 mg tablet 5 mg PO BID PRN severe pain 04/13/22 04/13/22 04/12/22 History quetiapine 100 mg tablet 100 mg PO BEDTIME PRN insomnia 04/13/22 04/13/2211/25 History Physical Exam Vital Signs: Vital Signs: Last Vital Signs Temp 97.7 F 04/14/22 07:06 Pulse 104 H 04/14/22 08:07 Resp 18 04/14/22 07:06 BP 104/69 04/14/22 08:07 Pulse Ox 98 04/14/22 08:07 O2 Del Method 04/14/22 07:06 O2 Flow Rate 2 04/14/22 07:06 BMI result Body Mass Index 56.2 Neuro: Other: Alert and awake with normal spontaneity of speech fluency comprehension and affect. 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 Affect was normal. Face was symmetrical. There was no nystagmus. There was no focal arm or leg weakness though he had significant difficulty moving his legs partly due to injury to his right knee after he fell. There was significant leg edema areflexia and flexor plantars. Examination was limited Results Labs CBC & Chem 7: 04/14/22 05:57 04/14/22 05:57 Labs: Short CBC 04/14/22 Range/Units 05:57 WBC 6.8 (4.8-10.8) X10*3/uL Hgb 9.8 L (14.0-18.0) g/dl Hct 36.0 L (42.0-52.0) % Plt Count 405 H (160-400) X10*3/uL BMP 04/14/22 05:57 Sodium 137 Potassium 5.2 H Chloride 100 Carbon Dioxide 26 BUN 10 Creatinine 0.[address] did not reveal any acute finding. Chronic embolic looking ischemic infarctions were noted as described in HPI. 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 Circumstances around fall or unclear. It is difficult to say that he had a convulsion or seizure. His Dilantin level is therapeutic for his level of albumin. I would suggest controlling blood sugar, taking care of right knee injury, involving PT OT and adjusting household situation to avoid any falls and proper care. He has been following Dr. Purdy for seizure disorder, which he can continue on routine basis. Procedures Date of Service Date of Service: 04/14/22
[2022-04-14 16:00] VITALS: BP 133/82; PULSE 104; RESP 17; TEMP 36.4; O2SAT 92
[2022-04-14 16:51] LABS: Ferritin 6 ng/mL (20-250); Iron 21 mcg/dL (45-160); Percent Iron Saturation 8 % (15-50); Total Iron Binding Capacity 279 mcg/dL (228-428); Unsaturated Iron Binding 258 ug/dL
[2022-04-14 17:23] LABS: Glucose, Whole Blood 234 mg/dL (60-115)
[2022-04-14] MEDS: Furosemide 40 MG TABLET PO (17:44)
[2022-04-14 19:31] VITALS: BP 130/71; PULSE 104; RESP 18; TEMP 36.7; O2SAT 92
[2022-04-14 19:53] LABS: Glucose, Whole Blood 287 mg/dL (60-115)
[2022-04-14] MEDS: traZODone HCL 100 MG TABLET PO (20:37)
[2022-04-14] MEDS: Insulin Glargine,Hum.rec.anlog 100 UNIT/ML 10 ML VIAL 10 UNIT SUBCUT (20:37)
[2022-04-14] MEDS: Phenytoin Sodium Extended 100 MG CAPSULE 400 MG PO (20:37)
[2022-04-14 23:44] VITALS: BP 111/70; PULSE 90; RESP 18; TEMP 36.4; O2SAT 93
[2022-04-15] VITALS (8 sets, daily range): BP systolic 129–145; BP diastolic 64–95; PULSE 85–119; RESP 15–20; TEMP 35.6–37.2; O2SAT 85–98
[2022-04-15] MEDS: HYDROmorphone HCl 0.5 MG/0.5 ML SYRINGE 0.25 MG IVPUSH ×3 (00:56→13:59)
[2022-04-15] MEDS: oxyCODONE HCl Immed Release 5 MG TABLET PO ×2 (02:35→22:13)
[2022-04-15] MEDS: Acetaminophen 325 MG TABLET 650 MG PO ×2 (02:37→22:14)
[2022-04-15] MEDS: Gabapentin 400 MG CAPSULE PO ×5 (06:21→22:13)
[2022-04-15] MEDS: Omeprazole 20 MG CAPSULE.DR PO (06:21)
[2022-04-15 07:20] LABS: Glucose, Whole Blood 170 mg/dL (60-115)
[2022-04-15 07:22] LABS: Anion Gap 14 (12-20); Blood Urea Nitrogen 12 mg/dL (9-16); Calcium 8.8 mg/dL (8.4-10.2); Carbon Dioxide 31 mmol/L (22-29); Chloride 97 mmol/L (96-108); Creatinine Clr Calc Pharmacy 172.6; Estimated Glomerular Filt Rate > 60; Glucose Random 175 mg/dL (60-115); Potassium 4.6 mmol/L (3.3-5.1); Sodium 137 mmol/L (135-145)
[2022-04-15] MEDS: Furosemide 40 MG TABLET PO ×2 (09:37→17:40)
[2022-04-15] MEDS: Atorvastatin Calcium 20 MG TABLET PO (09:38)
[2022-04-15] MEDS: Phenytoin Sodium Extended 100 MG CAPSULE 200 MG PO (09:38)
[2022-04-15] MEDS: Isosorbide Mononitrate 30 MG TAB.ER.24H PO (09:38)
[2022-04-15] MEDS: Cyanocobalamin (Vitamin B-12) 1,000 MCG TABLET 1000 MCG PO (09:38)
[2022-04-15] MEDS: Cholecalciferol (Vitamin D3) 25 MCG TABLET 50 MCG PO (09:38)
[2022-04-15] MEDS: DULoxetine HCl 60 MG CAPSULE.DR PO ×2 (09:38→22:13)
[2022-04-15] MEDS: Apixaban 5 MG TABLET PO ×2 (09:38→22:13)
[2022-04-15] MEDS: Sodium Zirconium Cyclosilicate 5 GM POWD.PACK PO (09:39)
[2022-04-15] MEDS: Insulin Lispro 100 UNIT/ML 3 ML VIAL SUBCUT ×4 (09:39→22:12)
[2022-04-15] MEDS: LORazepam 1 MG TABLET 4 MG PO ×2 (09:53→22:14)
[2022-04-15] MEDS: 0.9 % Sodium Chloride Flush 3 ML SYRINGE IVFLUSH ×2 (09:55→15:33)
[2022-04-15] MEDS: Metoprolol Succinate ER 50 MG TAB.ER.24H PO (09:58)
[2022-04-15 11:24] LABS: Glucose, Whole Blood 243 mg/dL (60-115)
--- NOTE | 2022-04-15 12:59 | P.PNCA_ITS ---
Subjective Subjective Date of Service: 04/15/22 Interval history: Patient seen examined at bedside. Continues to be in atrial fibrillation. Heart rates are better control in low 100s. No symptoms. Physical Exam Vital Signs: Last Vital Signs Temp 96.7 F L 04/15/22 11:39 Pulse 103 H 04/15/22 11:39 Resp 16 04/15/22 11:39 BP 129/64 04/15/22 11:39 Pulse Ox 95 04/15/22 11:39 O2 Del Method 04/15/22 11:39 O2 Flow Rate 2 04/15/22 11:39 BMI result Body Mass Index 56.2 GENERAL APPEARANCE: in no acute distress, laying flat in bed. Morbidly obese. NECK: no carotid bruit, no jugular venous distention. SKIN: no suspicious lesions, warm and dry. HEART: no murmurs, irregular rate and rhythm. LUNGS: clear to auscultation bilaterally. ABDOMEN: soft, nontender. EXTREMITIES: no significant edema. PERIPHERAL PULSES: equal. NEUROLOGIC: No gross deficits, AAO X 3 Objective Labs and Meds Result diagrams: 04/14/22 05:57 04/15/22 06:10 Lab results: Laboratory Results - last 24 hr 04/14/22 04/14/22 04/14/22 05:57 13:33 17:19 Sodium Potassium Chloride Carbon Dioxide Anion Gap BUN Creatinine Estim Creat Clear Calc Estimated GFR POC Glucose 222 H 234 H Random Glucose Calcium Iron 21 L TIBC 279 % Saturation 8 L Unsat Iron Binding 258 Ferritin 6 L 04/14/22 04/15/22 04/15/22 19:40 06:10 07:08 Sodium 137 Potassium 4.6 Chloride 97 Carbon Dioxide 31 H Anion Gap 14 BUN 12 Creatinine 0.82 Estim Creat Clear Calc 172.6 Estimated GFR > 60 POC Glucose 287 H 170 H Random Glucose 175 H Calcium 8.8 Iron TIBC % Saturation Unsat Iron Binding Ferritin 04/15/22 11:04 Sodium Potassium Chloride Carbon Dioxide Anion Gap BUN Creatinine Estim Creat Clear Calc Estimated GFR POC Glucose 243 H Random Glucose Calcium Iron TIBC % Saturation Unsat Iron Binding Ferritin Progress Note: A&P Assessment and plan (1) Atrial fibrillation with rapid ventricular response: Status: Acute Plan 61-year-old gentleman with fall plus-minus syncope and atrial fibrillation with rapid ventricular response. Fall is unclear as he has known history of seizures. Neurology will weigh in on that. Heart rate better controlled with Toprol 50 mg twice a day. I think we should titrated to 75 mg twice a day. Continue anticoagulation for atrial fibrillation. Clinically not in heart failure. Continue oral diuretics at this stage. He can be discharged home and follow up with Dr. Lin at [facility]. Thank you for allowing me to participate in the care of your patient. Please feel free to contact me if you have any questions. Time Spent With Patient Time: Total time spent is greater than 50% in coordination of care (as documented) at patient's floor/unit and/or counseling patient: Progress Note: Quality Stroke Does the patient have a stroke diagnosis?: No Procedures Date of Service Date of Service: 04/15/22
[2022-04-15] MEDS: Iron Sucrose Complex 400 MG in 0.9 % Sodium Chloride 250 ML 180 MG IV (13:35)
[2022-04-15] MEDS: hydrOXYzine HCL 25 MG TABLET PO (14:14)
--- NOTE | 2022-04-15 15:36 | HO.PM.IMPN ---
Subjective Subjective Date of Service: 04/16/22 Interval History: Complaining of floaters, no loss of vision, also complaining of dizziness with change in position lasting less than a minute, denies chest pain, no palpitation, complaining of discomfort at site of trauma to left forehead, no shortness of breath complaining of right knee discomfort not new. Review of Systems General no fevers no chills no urgency, no frequency skin chronic rash right ankle Review of Systems: Yes all other systems are reviewed and are negative Physical Exam Vital Signs: Vital Signs: Last Vital Signs Temp 96.2 F L 04/15/22 15:06 Pulse 94 04/15/22 15:06 Resp 15 04/15/22 15:06 BP 134/95 H 04/15/22 15:06 Pulse Ox 85 L 04/15/22 15:06 O2 Del Method 04/15/22 15:06 O2 Flow Rate 2 04/15/22 11:39 BMI result Body Mass Index 56.2 Const: Other: General awake alert x3, no acute distress. Neck supple no JVD. CVS irregular rate rhythm, Respiratory lungs clear to auscultation, no respiratory distress, no wheeze, no rhonchi. Gastrointestinal abdomen soft, nontender, bowel sounds audible, no guarding , no rigidity. Extremities no edema. Neuro nonfocal Skin rash right lower extremity, healing laceration left brow without active bleeding Right knee no swelling no warmth, no redness tender with superficial touch Objective Data Active Medications Acetaminophen (Acetaminophen 325 Mg Tablet) 650 mg PO Q6H PRN PRN Reason: Pain, Mild (Pain Scale 1-3) Last Admin: 04/15/22 02:37 Dose: 650 mg Documented By: VANNESA Apixaban (Apixaban 5 Mg Tablet) 5 mg PO BID [facility] Last Admin: 04/15/22 09:38 Dose: 5 mg Documented By: AUSTIN Atorvastatin Calcium (Atorvastatin Calcium 20 Mg Tablet) 20 mg PO DAILY [facility] Last Admin: 04/15/22 09:38 Dose: 20 mg Documented By: AUSTIN Cyanocobalamin (Cyanocobalamin (Vitamin B-12) 1,000 Mcg Tablet) 1,000 mcg PO DAILY [facility] Last Admin: 04/15/22 09:38 Dose: 1,000 mcg Documented By: AUSTIN Dextrose (Dextrose 50 % 25 Gm/50 Ml Syringe) 25 gm IVPUSH Q15M PRN; Protocol PRN Reason: per Hypoglycemia Standing Ord. Duloxetine HCl (Duloxetine Hcl 60 Mg Capsule.) 60 mg PO BID [facility] Last Admin: 04/15/22 09:38 Dose: 60 mg Documented By: AUSTIN Fluticasone Propionate (Fluticasone Propionate Nasal 16 Gm Marion) 1 spray NOSTRIL-B BID [facility] Last Admin: 04/15/22 09:39 Dose: Not Given Documented By: AUSTIN Non-Admin Reason: Patient Refused Furosemide (Furosemide 40 Mg Tablet) 40 mg PO BID@0900,1800 [facility]; Protocol Last Admin: 04/15/22 09:37 Dose: 40 mg Documented By: AUSTIN Gabapentin (Gabapentin 400 Mg Capsule) 400 mg PO 5XD [facility] Last Admin: 04/15/22 13:34 Dose: 400 mg Documented By: DANTE Glucose (Glucose Gel 15 Gm Gel..Gram.) 15 gm PO Q15M PRN; Protocol PRN Reason: per Hypoglycemia Standing Ord. Hydromorphone HCl (Hydromorphone Hcl 1 Mg/Ml Syringe) 0.25 mg IVPUSH Q4H PRN; Protocol PRN Reason: Pain, Severe (Pain Scale 7-10) Hydroxyzine HCl (Hydroxyzine Hcl 25 Mg Tablet) 25 mg PO TID PRN PRN Reason: anxiety Last Admin: 04/15/22 14:14 Dose: 25 mg Documented By: DANTE Insulin Glargine (Insulin Glargine,Hum.Rec.Anlog 100 Unit/Ml 10 Ml Vial) 10 unit SUBCUT BEDTIME [facility] Last Admin: 04/14/22 20:37 Dose: 10 unit Documented By: VANNESA Insulin Human Lispro (Insulin Lispro 100 Unit/Ml 3 Ml Vial) 0 unit SUBCUT QIDACHS [facility]; Protocol Last Admin: 04/15/22 12:29 Dose: 4 unit Documented By: AUSTIN Isosorbide Mononitrate (Isosorbide Mononitrate 30 Mg Tab.Er.24h) 30 mg PO DAILY [facility]; Protocol Last Admin: 04/15/22 09:38 Dose: 30 mg Documented By: AUSTIN Lorazepam (Lorazepam 1 Mg Tablet) 4 mg PO TID PRN PRN Reason: Anxiety Last Admin: 04/15/22 09:53 Dose: 4 mg Documented By: AUSTIN Metoprolol Succinate (Metoprolol Succinate Er 50 Mg Tab.Er.24h) 50 mg PO BIDWM [facility]; Protocol Last Admin: 04/15/22 09:58 Dose: 50 mg Documented By: AUSTIN Omeprazole (Omeprazole 20 Mg Capsule.Dr) 20 mg PO DAILY@0630 [facility] Last Admin: 04/15/22 06:21 Dose: 20 mg Documented By: VANNESA Ondansetron HCl (Ondansetron Hcl 4 Mg/2 Ml Vial) 4 mg IVPUSH Q8H PRN PRN Reason: Nausea and Vomiting Oxycodone HCl (Oxycodone Hcl Immed Release 5 Mg Tablet) 5 mg PO BID PRN PRN Reason: Pain, Moderate (Pain Scale 4-6 Last Admin: 04/15/22 02:35 Dose: 5 mg Documented By: VANNESA Pharmacy Consult (Consult Rx Perform Med Rec) 1 each MISCELLANE ONCE PRN PRN Reason: Consult order Phenytoin Sodium (Phenytoin Sodium Extended 100 Mg Capsule) 200 mg PO DAILY@0730 [facility] Last Admin: 04/15/22 09:38 Dose: 200 mg Documented By: AUSTIN Phenytoin Sodium (Phenytoin Sodium Extended 100 Mg Capsule) 400 mg PO BEDTIME [facility] Last Admin: 04/14/22 20:37 Dose: 400 mg Documented By: VANNESA Quetiapine Fumarate (Quetiapine Fumarate 100 Mg Tablet) 100 mg PO BEDTIME PRN PRN Reason: insomnia Sodium Chloride (0.9 % Sodium Chloride Flush 3 Ml Syringe) 3 ml IVFLUSH QSHIFT [facility] Last Admin: 04/15/22 09:55 Dose: 3 ml Documented By: AUSTIN Sodium Zirconium Cyclosilicate (Sodium Zirconium Cyclosilicate 5 Gm Powd.Pack) 5 gm PO DAILY [facility] Last Admin: 04/15/22 09:39 Dose: 5 gm Documented By: AUSTIN Trazodone HCl (Trazodone Hcl 100 Mg Tablet) 100 mg PO BEDTIME [facility] Last Admin: 04/14/22 20:37 Dose: 100 mg Documented By: VANNESA Vitamin D (Cholecalciferol (Vitamin D3) 25 Mcg Tablet) 50 mcg PO DAILY [facility] Last Admin: 04/15/22 09:38 Dose: 50 mcg Documented By: AUSTIN Labs CBC & Chem 7: 04/14/22 05:57 04/15/22 06:10 Labs: Laboratory Results - last 24 hr 04/14/22 04/14/22 04/14/22 05:57 17:19 19:40 Anion Gap Estim Creat Clear Calc Estimated GFR POC Glucose 234 H 287 H Random Glucose Calcium Iron 21 L TIBC 279 % Saturation 8 L Unsat Iron Binding 258 Ferritin 6 L 04/15/22 04/15/22 04/15/22 06:10 07:08 11:04 Anion Gap 14 Estim Creat Clear Calc 172.6 Estimated GFR > 60 POC Glucose 170 H 243 H Random Glucose 175 H Calcium 8.8 Iron TIBC % Saturation Unsat Iron Binding Ferritin Assessment and Plan (1) Multifactorial gait disorder: Status: Acute (2) Weakness: Status: Acute (3) Atrial fibrillation with rapid ventricular response: Status: Acute Plan 61-year-old male with history atrial fibrillation anticoagulated with Eliquis, history of DVT, hyperlipidemia, [id number] type 2 diabetes, coronary artery disease, seizure disorder on phenytoin, GERD, depression/anxiety admitted for weakness and AFib with RVR. 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 Unclear if seizure given unclear circumstances around fall, question related to AFib with RVR although less likely Has chronic paresthesias due to diabetic neuropathy unchanged. -Per neurology less likely related to acute CVA/TIA or seizure. -recommended good blood sugar control/patient on wheelchair due to lower extremity pain Seen by physical therapy they recommend home PT #Paroxysmal Afib with RVR -patient denies chest pain or palpitation but tele monitor showed AFIB with RVR Echo showed EF 55-60%, severely increased left ventricular wall thickness no evidence of regional wall motion abnormality, indeterminate diastolic function Repeat pending -will further up titrate dose of Toprol to 75 mg b.i.d. continue Eliquis # seizure disorder -question if fall from WC r/t seizure No tongue biting or further seizure activity -continue phenytoin dose therapeutic low levels due to low albumin -Apprecaite neurology input -seizure precautions, outpatient follow-up Neurology #Elevated BNP -BNP trending down -No orthopnea/PND, no evidence of fluid overload. LE mild edema chronically likely r/t venous disease/diabetes -Continue home furosemide 40mg BID PO -Echo as above # hyponatremia-likely pseudohyponatremia secondary to hyperglycemia- resolved -follow BMP # hyperkalemia -K improved Renal function normal, on Lokelma 5mg daily -follow BMP if potassium trending down will DC Lokelma since patient on Lasix 40 b.i.d. #Microcytic anemia- stable hemoglobin and hematocrit, noted to have significant iron deficiency will check stool guaiac -No active bleeding noted, as per patient brother has iron deficiency, he cannot absorb iron therefore receiving IV iron infusions Will give IV iron infusion and recommend outpatient hematology follow-up with Dr. Edwards, called and informed Dr. Edwards about patient iron studies, recommend outpatient GI follow-up -Continue eliquis # type 2 diabetes with qpvvzehwmqjap-ohr-mvnkoru-dependent- uncontrolled -POC glucose -diabetic/cardiac diet -Humalog on sliding scale -Started on lantus 10 units nightly -resume metformin # history of DVT -continue Eliquis #coronary artery disease/hyperlipidemia -continue isosorbide, metoprolol and aspirin # right knee pain chronic, x-ray of knee showed mild to moderate tricompartmental degenerative joint disease no acute fracture, mild soft tissue swelling # diabetic neuropathy -continue gabapentin # depression/anxiety Continue quetiapine, trazodone, lorazepam, duloxetine # morbid obesity weight reduction recommended that will help in better blood sugar control. DVT prophylaxis-on Eliquis Full code Dispo: Continue plan as above. PT recommending home PT/OT for services. Pt refuses STR and does already have [facility]/WEBSITE PROGRAM[facility] services in place. Continue working with cardiology to control HR for management of AFIB. Patient requires ongoing inpatient stay for management of PAF with RVR requiring IV rate control and close cardiac monitoring. Quality Stroke Does the patient have a stroke diagnosis?: No VTE Prior VTE?: No VTE Risk Level:: Medical - moderate - high VTE Device Contraindication: Treatment Not Indicated VTE Drug Contraindication: N/A - Med Ordered
[2022-04-15 16:27] LABS: Glucose, Whole Blood 300 mg/dL (60-115)
[2022-04-15] MEDS: Metoprolol Succinate ER 25 MG TAB.ER.24H 75 MG PO (16:29)
[2022-04-15 20:35] LABS: Glucose, Whole Blood 253 mg/dL (60-115)
[2022-04-15] MEDS: Insulin Glargine,Hum.rec.anlog 100 UNIT/ML 10 ML VIAL 10 UNIT SUBCUT (22:12)
[2022-04-15] MEDS: Phenytoin Sodium Extended 100 MG CAPSULE 400 MG PO (22:13)
[2022-04-15] MEDS: traZODone HCL 100 MG TABLET PO (22:14)
[2022-04-16] MEDS: 0.9 % Sodium Chloride Flush 3 ML SYRINGE IVFLUSH ×4 (02:24→23:50)
[2022-04-16 04:00] VITALS: BP 103/56; PULSE 93; RESP 20; TEMP 37.2; O2SAT 93
[2022-04-16] MEDS: HYDROmorphone HCl 1 MG/ML SYRINGE 0.25 MG IVPUSH ×2 (04:48→08:47)
[2022-04-16] MEDS: Omeprazole 20 MG CAPSULE.DR PO (05:39)
[2022-04-16] MEDS: oxyCODONE HCl Immed Release 5 MG TABLET PO ×2 (05:39→20:56)
[2022-04-16] MEDS: Gabapentin 400 MG CAPSULE PO ×5 (05:39→20:49)
[2022-04-16] MEDS: Acetaminophen 325 MG TABLET 650 MG PO (05:40)
[2022-04-16 07:06] VITALS: BP 110/65; PULSE 95; RESP 20; TEMP 36.4; O2SAT 97
[2022-04-16 07:25] LABS: Glucose, Whole Blood 176 mg/dL (60-115)
[2022-04-16] MEDS: Insulin Lispro 100 UNIT/ML 3 ML VIAL SUBCUT ×4 (08:40→20:49)
[2022-04-16] MEDS: Phenytoin Sodium Extended 100 MG CAPSULE 200 MG PO (08:43)
[2022-04-16] MEDS: Furosemide 40 MG TABLET PO ×2 (08:44→16:40)
[2022-04-16] MEDS: Apixaban 5 MG TABLET PO ×2 (08:44→20:49)
[2022-04-16] MEDS: Cyanocobalamin (Vitamin B-12) 1,000 MCG TABLET 1000 MCG PO (08:44)
[2022-04-16] MEDS: Cholecalciferol (Vitamin D3) 25 MCG TABLET 50 MCG PO (08:44)
[2022-04-16] MEDS: Atorvastatin Calcium 20 MG TABLET PO (08:45)
[2022-04-16] MEDS: Metoprolol Succinate ER 25 MG TAB.ER.24H 75 MG PO ×2 (08:45→16:39)
[2022-04-16] MEDS: DULoxetine HCl 60 MG CAPSULE.DR PO ×2 (08:46→20:49)
[2022-04-16] MEDS: Sodium Zirconium Cyclosilicate 5 GM POWD.PACK PO (08:46)
[2022-04-16] MEDS: Isosorbide Mononitrate 30 MG TAB.ER.24H PO (08:46)
[2022-04-16 11:11] LABS: Glucose, Whole Blood 181 mg/dL (60-115)
--- NOTE | 2022-04-16 11:28 | PM.PNCARD ---
Subjective Subjective Date of Service: 04/16/22 Interval history: Seen examined at bedside. Continues to be in AFib with heart rates in low 100s. Asymptomatic. Has known history of sleep apnea and not using CPAP. Physical Exam Vital Signs: Last Vital Signs Temp 97.5 F 04/16/22 07:06 Pulse 95 04/16/22 07:06 Resp 20 04/16/22 07:06 BP 110/65 04/16/22 07:06 Pulse Ox 97 04/16/22 07:06 O2 Del Method 04/16/22 07:06 O2 Flow Rate 3 04/16/22 07:06 BMI result Body Mass Index 56.2 GENERAL APPEARANCE: in no acute distress, laying flat in bed. Morbidly obese. NECK: no carotid bruit, no jugular venous distention. SKIN: no suspicious lesions, warm and dry. HEART: no murmurs, irregular rate and rhythm. LUNGS: clear to auscultation bilaterally. ABDOMEN: soft, nontender. EXTREMITIES: no significant edema. PERIPHERAL PULSES: equal. NEUROLOGIC: No gross deficits, AAO X 3 Objective Labs and Meds Result diagrams: 04/14/22 05:57 04/15/22 06:10 Lab results: Laboratory Results - last 24 hr 04/15/22 04/15/22 04/16/22 16:23 20:30 07:08 POC Glucose 300 H 253 H 176 H 04/16/22 10:47 POC Glucose 181 H Progress Note: A&P Assessment and plan (1) Atrial fibrillation with rapid ventricular response: Status: Acute Plan 61-year-old gentleman with fall plus-minus syncope and atrial fibrillation with rapid ventricular response. Fall is unclear as he has known history of seizures. Neurology following. On Toprol XL 75 BID. Has known RADHA and has not been using CPAP so will not do cardioversion currently. He plans to seek care for RADHA. Continue anticoagulation for atrial fibrillation. Clinically not in heart failure. Continue oral diuretics at this stage. He can be discharged home and follow up with Dr. Lin at [facility]. Thank you for allowing me to participate in the care of your patient. Please feel free to contact me if you have any questions. Time Spent With Patient Time: Total time spent is greater than 50% in coordination of care (as documented) at patient's floor/unit and/or counseling patient: Progress Note: Quality Stroke Does the patient have a stroke diagnosis?: No Procedures Date of Service Date of Service: 04/16/22
[2022-04-16 12:00] VITALS: BP 146/71; PULSE 116; RESP 20; TEMP 35.9; O2SAT 95
[2022-04-16 12:03] LABS: Glucose, Whole Blood 212 mg/dL (60-115)
--- NOTE | 2022-04-16 13:37 | P.CDIC_ITS ---
CDI Concurrent Query Documentation Clarification: PHYSICIAN'S DOCUMENTATION REQUEST Date of Query: 04/16/22 1338 Patient Name: Sage Bartholomew JR Admit Date: 04/13/22 Dear Doctor, A review of the medical record indicates additional documentation may be needed. Please review below and update the documentation accordingly. Clinical Indicators: Height: [] 6'3 Weight: [] 204.117 kg BMI: [] 56.2 kg Other Clinical Notes Supporting Significance of the BMI: Risk Factors/Clinical Indicators/Treatments If possible, please provide an associated diagnosis related to the abnormal BMI, such as: For a BMI >= 40: * Overweight * Obesity * Due to excess calories * Drug induced * Due to other cause * Severe or Morbid Obesity * With alveolar hypoventilation * Without alveolar hypoventilation Or: * BMI is not significant * Other (please specify) * Unable to determine Use of terms such as suspected, likely, concern for, or probable (associated with a specific diagnosis that is being evaluated, monitored, or treated as if it exists) are acceptable and can be coded in the inpatient setting, when documented at the time of discharge. Thank you, Cailin Stoll RN Extension: [phone] Please use your independent medical judgment in providing your response. THIS QUERY IS PART OF THE PERMANENT MEDICAL RECORD Provider Response: Other Other Diagnosis: see note
[2022-04-16] MEDS: LORazepam 1 MG TABLET 4 MG PO ×2 (13:50→20:56)
--- NOTE | 2022-04-16 15:17 | HO.PM.IMPN ---
Subjective Subjective Date of Service: 04/16/22 Interval History: Complaining of persistent right knee pain, no dizziness with position change lasting less than a minute, had similar symptoms in the past, noted to have ventricular rate up to 150s on tele monitor patient remained asymptomatic with no chest pain, no lightheadedness or dizziness, no vision loss Review of Systems Review of Systems: Yes all other systems are reviewed and are negative Physical Exam Vital Signs: Vital Signs: Last Vital Signs Temp 96.7 F L 04/16/22 12:00 Pulse 116 H 04/16/22 12:00 Resp 20 04/16/22 12:00 BP 146/71 H 04/16/22 12:00 Pulse Ox 95 04/16/22 12:00 O2 Del Method 04/16/22 12:00 O2 Flow Rate 2 04/16/22 12:00 BMI result Body Mass Index 56.2 Const: Other: General awake aler t x3, no acute dis tress. No nystagmu s? Neck supple no JVD. CVS? irregula r rate rhythm, Res piratory lungs robb ar to auscultation , no respiratory d istress, no wheeze , no rhonchi. Chrystal rointestinal abdom en soft, nontender , bowel sounds aud ible, no guarding , no rigidity. Ext remities no edema. Neuro nonfocal Sk in? rash right low er extremity, heal ing laceration lef t brow without act cami bleeding Right knee no swelling no warmth, no redn ess tender with kerns perficial touch Objective Data Active Medications Acetaminophen (Acetaminophen 325 Mg Tablet) 650 mg PO Q6H PRN PRN Reason: Pain, Mild (Pain Scale 1-3) Last Admin: 04/16/22 05:40 Dose: 650 mg Documented By: VANNESA Apixaban (Apixaban 5 Mg Tablet) 5 mg PO BID [facility] Last Admin: 04/16/22 08:44 Dose: 5 mg Documented By: ASHLEY Atorvastatin Calcium (Atorvastatin Calcium 20 Mg Tablet) 20 mg PO DAILY [facility] Last Admin: 04/16/22 08:45 Dose: 20 mg Documented By: ASHLEY Cyanocobalamin (Cyanocobalamin (Vitamin B-12) 1,000 Mcg Tablet) 1,000 mcg PO DAILY [facility] Last Admin: 04/16/22 08:44 Dose: 1,000 mcg Documented By: ASHLEY Dextrose (Dextrose 50 % 25 Gm/50 Ml Syringe) 25 gm IVPUSH Q15M PRN; Protocol PRN Reason: per Hypoglycemia Standing Ord. Digoxin (Digoxin 0.25 Mg Tablet) 0.25 mg PO Q6H [facility] Stop: 04/16/22 21:01 Duloxetine HCl (Duloxetine Hcl 60 Mg Capsule.Dr) 60 mg PO BID [facility] Last Admin: 04/16/22 08:46 Dose: 60 mg Documented By: ASHLEY Fluticasone Propionate (Fluticasone Propionate Nasal 16 Gm [place]) 1 spray NOSTRIL-B BID [facility] Last Admin: 04/15/22 22:19 Dose: Not Given Documented By: VANNESA Non-Admin Reason: Med Not Available Furosemide (Furosemide 40 Mg Tablet) 40 mg PO BID@0900,1800 [facility]; Protocol Last Admin: 04/16/22 08:44 Dose: 40 mg Documented By: ASHLEY Gabapentin (Gabapentin 400 Mg Capsule) 400 mg PO 5XD [facility] Last Admin: 04/16/22 13:54 Dose: 400 mg Documented By: ASHLEY Glucose (Glucose Gel 15 Gm Gel..Gram.) 15 gm PO Q15M PRN; Protocol PRN Reason: per Hypoglycemia Standing Ord. Hydromorphone HCl (Hydromorphone Hcl 1 Mg/Ml Syringe) 0.25 mg IVPUSH Q4H PRN; Protocol PRN Reason: Pain, Severe (Pain Scale 7-10) Last Admin: 04/16/22 08:47 Dose: 0.25 mg Documented By: ASHLEY Hydroxyzine HCl (Hydroxyzine Hcl 25 Mg Tablet) 25 mg PO TID PRN PRN Reason: anxiety Last Admin: 04/15/22 14:14 Dose: 25 mg Documented By: DANTE Insulin Glargine (Insulin Glargine,Hum.Rec.Anlog 100 Unit/Ml 10 Ml Vial) 10 unit SUBCUT BEDTIME [facility] Last Admin: 04/15/22 22:12 Dose: 10 unit Documented By: VANNESA Insulin Human Lispro (Insulin Lispro 100 Unit/Ml 3 Ml Vial) 0 unit SUBCUT QIDACHS [facility]; Protocol Last Admin: 04/16/22 11:31 Dose: 2 unit Documented By: ASHLEY Isosorbide Mononitrate (Isosorbide Mononitrate 30 Mg Tab.Er.24h) 30 mg PO DAILY [facility]; Protocol Last Admin: 04/16/22 08:46 Dose: 30 mg Documented By: ASHLEY Lorazepam (Lorazepam 1 Mg Tablet) 4 mg PO TID PRN PRN Reason: Anxiety Last Admin: 04/16/22 13:50 Dose: 4 mg Documented By: ASHLEY Metformin HCl (Metformin Hcl 1,000 Mg Tablet) 1,000 mg PO DAILY [facility] Metoprolol Succinate (Metoprolol Succinate Er 25 Mg Tab.Er.24h) 75 mg PO BIDWM [facility]; Protocol Last Admin: 04/16/22 08:45 Dose: 75 mg Documented By: ASHLEY Omeprazole (Omeprazole 20 Mg Capsule.Dr) 20 mg PO DAILY@0630 [facility] Last Admin: 04/16/22 05:39 Dose: 20 mg Documented By: VANNESA Ondansetron HCl (Ondansetron Hcl 4 Mg/2 Ml Vial) 4 mg IVPUSH Q8H PRN PRN Reason: Nausea and Vomiting Oxycodone HCl (Oxycodone Hcl Immed Release 5 Mg Tablet) 5 mg PO BID PRN PRN Reason: Pain, Moderate (Pain Scale 4-6 Last Admin: 04/16/22 05:39 Dose: 5 mg Documented By: VANNESA Pharmacy Consult (Consult Rx Perform Med Rec) 1 each MISCELLANE ONCE PRN PRN Reason: Consult order Phenytoin Sodium (Phenytoin Sodium Extended 100 Mg Capsule) 200 mg PO DAILY@0730 [facility] Last Admin: 04/16/22 08:43 Dose: 200 mg Documented By: ASHLEY Phenytoin Sodium (Phenytoin Sodium Extended 100 Mg Capsule) 400 mg PO BEDTIME [facility] Last Admin: 04/15/22 22:13 Dose: 400 mg Documented By: VANNESA Quetiapine Fumarate (Quetiapine Fumarate 100 Mg Tablet) 100 mg PO BEDTIME PRN PRN Reason: insomnia Sodium Chloride (0.9 % Sodium Chloride Flush 3 Ml Syringe) 3 ml IVFLUSH QSHIFT [facility] Last Admin: 04/16/22 08:47 Dose: 3 ml Documented By: ASHLEY Sodium Zirconium Cyclosilicate (Sodium Zirconium Cyclosilicate 5 Gm Powd.Pack) 5 gm PO DAILY [facility] Last Admin: 04/16/22 08:46 Dose: 5 gm Documented By: ASHLEY Trazodone HCl (Trazodone Hcl 100 Mg Tablet) 100 mg PO BEDTIME [facility] Last Admin: 04/15/22 22:14 Dose: 100 mg Documented By: VANNESA Vitamin D (Cholecalciferol (Vitamin D3) 25 Mcg Tablet) 50 mcg PO DAILY [facility] Last Admin: 04/16/22 08:44 Dose: 50 mcg Documented By: ASHLEY Labs CBC & Chem 7: 04/14/22 05:57 04/15/22 06:10 Labs: Laboratory Results - last 24 hr 04/15/22 04/15/22 04/16/22 16:23 20:30 07:08 POC Glucose 300 H 253 H 176 H 04/16/22 04/16/22 10:47 11:57 POC Glucose 181 H 212 H Assessment and Plan (1) Multifactorial gait disorder: Status: Acute (2) Weakness: Status: Acute (3) Atrial fibrillation with rapid ventricular response: Status: Acute Plan 61-year-old male with history atrial fibrillation anticoagulated with Eliquis, history of DVT, hyperlipidemia, [id number]-[id number] type 2 diabetes, coronary artery disease, seizure disorder on phenytoin, GERD, depression/anxiety admitted for weakness and AFib with RVR. 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 Unclear if seizure given unclear circumstances around fall, question related to AFib with RVR although less likely Has chronic paresthesias due to diabetic neuropathy unchanged/has transient dizziness likely due to BPPV which he had in the past. -Per neurology less likely related to acute CVA/TIA or seizure. -recommended good blood sugar control/patient on wheelchair due to ch lower extremity pain Seen by physical therapy they recommend home PT #Paroxysmal Afib with RVR Persistent RVR on tele monitor up to 150 patient remained asymptomatic, no chest pain no palpitation Echo showed EF 55-60%, severely increased left ventricular wall thickness no evidence of regional wall motion abnormality, indeterminate diastolic function Dose of Toprol increased to 75 mg b.i.d. with no significant improvement in heart rate, case discussed with Dr. Wagner he recommend digoxin load will give 0.5 mg now followed by 0.25 mg q.[address] on digoxin 0.125 mg qod # seizure disorder -question if fall from WC r/t seizure No tongue biting or further seizure activity -continue phenytoin, dose therapeutic, low levels due to low albumin -Apprecaite neurology input -seizure precautions, outpatient follow-up with primary neurologist Dr. Purdy #Elevated BNP -BNP trending down -No orthopnea/PND, no evidence of fluid overload. No leg edema -Continue home furosemide 40mg BID PO -Echo as above # hyponatremia-likely pseudohyponatremia secondary to hyperglycemia- resolved -follow BMP # hyperkalemia -K improved Renal function normal, on Lokelma 5mg daily -follow BMP if potassium trending down will DC Lokelma since patient on Lasix 40 b.i.d. #Microcytic anemia- stable hemoglobin and hematocrit, noted to have significant iron deficiency will check stool guaiac -No active bleeding noted, as per patient, brother has iron deficiency, he cannot absorb iron therefore receiving IV iron infusions Will give IV iron infusion x1 and recommend outpatient hematology follow-up with Dr. Edwards, called and informed Dr. Edwards about patient iron studies, recommend outpatient GI follow-up -Continue eliquis # type 2 diabetes with xbzziovthixrm-xkp-lzrrihq-dependent- uncontrolled -POC glucose -diabetic/cardiac diet -Humalog on sliding scale -Started on lantus 10 units nightly, will give teachings to administer insulin, if patient refuses insulin will place on glipizide -resume metformin # history of DVT -continue Eliquis #coronary artery disease/hyperlipidemia -continue isosorbide, metoprolol and aspirin # right knee pain chronic, x-ray of knee showed mild to moderate tricompartmental degenerative joint disease no acute fracture, mild soft tissue swelling,rec tylenol/oxy will dc iv dilaudid # diabetic neuropathy -continue gabapentin # depression/anxiety Continue quetiapine, trazodone, lorazepam, duloxetine # morbid obesity weight reduction recommended that will help in better blood sugar control. DVT prophylaxis-on Eliquis Full code Dispo: Continue plan as above. PT recommending home PT/OT for services. Pt refuses STR and does already have [facility] services in place. Continue working with cardiology to control HR for management of AFIB. Patient requires ongoing inpatient stay for management of PAF with RVR requiring digoxin load Quality Stroke Does the patient have a stroke diagnosis?: No VTE Prior VTE?: No VTE Risk Level:: Medical - moderate - high VTE Device Contraindication: Treatment Not Indicated VTE Drug Contraindication: N/A - Med Ordered
[2022-04-16] MEDS: Digoxin 0.25 MG TABLET 0.5 MG PO (15:34)
[2022-04-16] MEDS: metFORMIN HCl 1,000 MG TABLET 1000 MG PO (15:35)
[2022-04-16] MEDS: Digoxin 0.25 MG TABLET PO ×2 (15:35→20:48)
[2022-04-16 15:45] VITALS: BP 126/86; PULSE 99; RESP 19; TEMP 36.4; O2SAT 94
[2022-04-16 16:16] LABS: Glucose, Whole Blood 262 mg/dL (60-115)
[2022-04-16 19:38] VITALS: BP 145/92; PULSE 91; RESP 19; TEMP 35.9
[2022-04-16 20:36] LABS: Glucose, Whole Blood 208 mg/dL (60-115)
[2022-04-16] MEDS: Phenytoin Sodium Extended 100 MG CAPSULE 400 MG PO (20:48)
[2022-04-16] MEDS: traZODone HCL 100 MG TABLET PO (20:48)
[2022-04-16] MEDS: Insulin Glargine,Hum.rec.anlog 100 UNIT/ML 10 ML VIAL 10 UNIT SUBCUT (20:49)
[2022-04-17] VITALS: BP 130/70; PULSE 94; RESP 20; TEMP 36.4; O2SAT 95
--- NOTE | 2022-04-17 00:10 | MHC.PIE ---
P.. burning in my stomache I..pt requesting maalaox for burning in stomach.Dr Foley notified.Order for maalox 30cc po x 1 given E.Med given with good effect.
[2022-04-17] MEDS: Magnesium Hydrox/Alum Hydrox 30 ML ORAL.SUSP PO (00:37)
[2022-04-17 03:21] VITALS: BP 114/73; PULSE 96; RESP 18; TEMP 36.6; O2SAT 98
[2022-04-17] MEDS: oxyCODONE HCl Immed Release 5 MG TABLET PO (05:02)
[2022-04-17] MEDS: Gabapentin 400 MG CAPSULE PO ×2 (05:02→08:54)
[2022-04-17] MEDS: Omeprazole 20 MG CAPSULE.DR PO (05:02)
[2022-04-17] MEDS: LORazepam 1 MG TABLET 4 MG PO (05:02)
[2022-04-17 06:50] LABS: Hematocrit 35.6 % (42.0-52.0); Hemoglobin 9.9 g/dl (14.0-18.0); Mean Corpuscular HGB Conc 27.8 g/dl (31.0-36.0); Mean Corpuscular Hemoglobin 20.5 pg (27.0-33.0); Mean Corpuscular Volume 73.9 fL (80.0-98.0); Mean Platelet Volume 10.1 fL (9.4-12.4); Platelet Count 418 X10*3/uL (160-400); Red Blood Count 4.82 X10*6/uL (4.60-5.80); White Blood Count 8.2 X10*3/uL (4.8-10.8)
[2022-04-17 07:09] LABS: Anion Gap 16 (12-20); Blood Urea Nitrogen 9 mg/dL (9-16); Calcium 8.5 mg/dL (8.4-10.2); Carbon Dioxide 29 mmol/L (22-29); Chloride 96 mmol/L (96-108); Creatinine Clr Calc Pharmacy 186.2; Estimated Glomerular Filt Rate > 60; Glucose Random 146 mg/dL (60-115); Potassium 3.9 mmol/L (3.3-5.1); Sodium 137 mmol/L (135-145)
[2022-04-17 07:55] VITALS: BP 136/57; PULSE 97; RESP 20; TEMP 36.6; O2SAT 92
[2022-04-17] MEDS: Insulin Lispro 100 UNIT/ML 3 ML VIAL SUBCUT (07:59)
[2022-04-17 08:04] LABS: Glucose, Whole Blood 163 mg/dL (60-115)
[2022-04-17] MEDS: metFORMIN HCl 1,000 MG TABLET 1000 MG PO (08:53)
[2022-04-17] MEDS: Cyanocobalamin (Vitamin B-12) 1,000 MCG TABLET 1000 MCG PO (08:53)
[2022-04-17] MEDS: Sodium Zirconium Cyclosilicate 5 GM POWD.PACK PO (08:53)
[2022-04-17] MEDS: Metoprolol Succinate ER 25 MG TAB.ER.24H 75 MG PO (08:53)
[2022-04-17] MEDS: Atorvastatin Calcium 20 MG TABLET PO (08:53)
[2022-04-17] MEDS: Furosemide 40 MG TABLET PO (08:53)
[2022-04-17] MEDS: Apixaban 5 MG TABLET PO (08:54)
[2022-04-17] MEDS: 0.9 % Sodium Chloride Flush 3 ML SYRINGE IVFLUSH (08:54)
[2022-04-17] MEDS: Cholecalciferol (Vitamin D3) 25 MCG TABLET 50 MCG PO (08:54)
[2022-04-17] MEDS: Isosorbide Mononitrate 30 MG TAB.ER.24H PO (08:54)
[2022-04-17] MEDS: Phenytoin Sodium Extended 100 MG CAPSULE 200 MG PO (08:54)
[2022-04-17] MEDS: DULoxetine HCl 60 MG CAPSULE.DR PO (08:54)
[2022-04-17] MEDS: Digoxin 0.125 MG TABLET PO (08:56)
--- NOTE | 2022-04-17 10:33 | PM.DS ---
DS: Providers Provider Date of Service: 04/17/22 Date of admission: 04/13/22 18:37 Primary care physician: Matheus Yo MD Consults: 04/13/22 19:23 Consult to Neurology Routine Consulting Provider: [facility] Reason for consultation: ?TIA, ?seizure, general weakness/fall 04/13/22 20:52 Consult to Cardiology Routine Consulting Provider: Jasper Wagner Reason for consultation: afib with rvr DS: Diagnosis Discharge Diagnosis (1) Multifactorial gait disorder: Status: Acute (2) Weakness: Status: Acute (3) Atrial fibrillation with rapid ventricular response: Status: Acute DS: Summary Hospital Course Hospital Course: the following was obtained from the H&P done on 04/13: 61-year-old male with history atrial fibrillation anticoagulated with Eliquis, history of DVT, hyperlipidemia, zqb-srapnzx-huwjcczxi type 2 diabetes, coronary artery disease, seizure disorder on phenytoin, GERD, depression/anxiety presented to the ED early this morning via EMS complaining of weakness.? Patient has longstanding bilateral lower extremity weakness and is in a wheelchair at baseline.? He lives at by himself in a shelter community.? Reports last night developed weakness in the upper extremities bilaterally unable to propel his wheelchair well.? Also reports tingling in the hands and fingers bilaterally.? Due to the weakness, he slid from his wheelchair landing on the floor and did sustain head injury without loss of consciousness.? He laid on the floor 4 hours until his [employer] arrived this morning and called 911 patient was admitted for management and evaluation of weakness/ paresthesia/ fall, found to be stat likely secondary to chronic infarctions as well as deconditioning /diabetic neuropathy and need for physical therapy. Patient was evaluated by Neurology which felt that the episode of weakness, fall, paresthesia was less likely related to acute CVA/TIA or seizure. Patient also had multiple episodes of paroxysmal AFib with RVR. Elevated by Cardiology, patient was loaded with digoxin and started on digoxin 0.125 every other day. A script was sent to pharmacy. In regards to his seizure disorder, will continue phenytoin, dose is therapeutic. Patient to follow-up with his primary neurologist Dr. Purdy in 1-2 weeks. workup also revealed microcytic anemia, patient received IV iron infusion. His case was discussed with Hematology Oncology, who recommended with GI outpatient through his PCP. Patient also had elevated BNP with no evidence of CHF exacerbation. Recommend continuing furosemide at a baseline of 40 mg b.i.d.. Patient currently hemodynamically stable, he will be discharged home with home PT. his electrolyte abnormality resolved. Hemoglobin stable. Patient to follow-up with PCP, Cardiology, as well as Neurology, and GI for evaluation of chronic microcytic anemia on day of discharge patient hemodynamically stable, will be discharged home on home PT. Time Spent with Patient Time attestation: Total time spent providing and/or coordinating discharge services: Discharge coordination time: Greater than 30 minutes Quality: Safe Use of Opioids Does Pt have an Active Cancer Diagnosis on the Problem List?: No Quality: Stroke Does the patient have a stroke diagnosis?: No Physical Exam Vital Signs: Vital Signs: Last Vital Signs Temp 97.8 F 04/17/22 07:55 Pulse 97 04/17/22 07:55 Resp 20 04/17/22 07:55 BP 136/57 L 04/17/22 07:55 Pulse Ox 92 04/17/22 07:55 O2 Del Method 04/17/22 07:55 O2 Flow Rate 2 04/17/22 03:21 FiO2 89 04/16/22 19:38 BMI result Body Mass Index 56.2 DS: Data Data Completed and Pending Labs on day of discharge: Laboratory Results - last 24 hr 04/16/22 04/16/22 04/16/22 10:47 11:57 16:06 WBC RBC Hgb Hct MCV MCH MCHC RDW Plt Count MPV Absolute Nucleated RBC Nucleated RBC % (auto) Sodium Potassium Chloride Carbon Dioxide Anion Gap BUN Creatinine Estim Creat Clear Calc Estimated GFR POC Glucose 181 H 212 H 262 H Random Glucose Calcium 04/16/22 04/17/22 04/17/22 20:31 06:07 06:07 WBC 8.2 RBC 4.82 Hgb 9.9 L Hct 35.6 L MCV 73.9 L MCH 20.5 L MCHC 27.8 L RDW 20.0 H Plt Count 418 H MPV 10.1 Absolute Nucleated RBC 0.000 Nucleated RBC % (auto) 0.0 Sodium 137 Potassium 3.9 Chloride 96 Carbon Dioxide 29 Anion Gap 16 BUN 9 Creatinine 0.76 Estim Creat Clear Calc 186.2 Estimated GFR > 60 POC Glucose 208 H Random Glucose 146 H Calcium 8.5 04/17/22 07:58 WBC RBC Hgb Hct MCV MCH MCHC RDW Plt Count MPV Absolute Nucleated RBC Nucleated RBC % (auto) Sodium Potassium Chloride Carbon Dioxide Anion Gap BUN Creatinine Estim Creat Clear Calc Estimated GFR POC Glucose 163 H Random Glucose Calcium Discharge Plan Discharge Anticipated Discharge Date/Time: 04/17/22 13:00 Patient Disposition: Home Health Service Discharge Diagnosis: A fib w RVR Referrals: [facility] [Outside] - 1 Day (Home with [facility] services) Matheus Yo MD [Primary Care Provider] - 1 Week Jasper Wagner MD [Physician] - 1 Week Discharge Medications: New digoxin 125 mcg (0.125 mg) Tablet 0.125 mg PO Q2D 30 Days Qty: 15 0RF metoprolol succinate 25 mg Tablet Extended Release 24 Hr 75 mg PO BID 30 Days Qty: 180 1RF Protocol: Hold for SBP/HR < HOLD for SBP < : 90 HOLD for HR < : 60 Continued furosemide 40 mg tablet 40 mg PO BID cyanocobalamin (vitamin B-12) [Vitamin B-12] 1,000 mcg tablet extended release 1,000 mcg PO DAILY atorvastatin 20 mg tablet 20 mg PO DAILY trazodone 50 mg tablet 100 mg PO BEDTIME phenytoin sodium extended 100 mg capsule 200 mg PO DAILY@0730 isosorbide mononitrate 60 mg tablet extended release 24 hr 60 mg PO QAM pantoprazole 40 mg tablet,delayed release (DR/EC) 40 mg PO DAILY metformin 1,000 mg tablet 1,000 mg PO QAM hydroxyzine HCl 25 mg tablet 25 mg PO TID PRN (Reason: anxiety) nystatin [Nyamyc] 100,000 unit/gram powder 100,000 unit topical BID PRN (Reason: Rash) cholecalciferol (vitamin D3) 50 mcg (2,000 unit) tablet 50 mcg PO DAILY phenytoin sodium extended 100 mg capsule 400 mg PO BEDTIME gabapentin 400 mg capsule 400 mg PO 5XD Rx Instructions: hold for sedation quetiapine 100 mg tablet 100 mg PO BEDTIME MDD 2 PRN (Reason: insomnia) Rx Instructions: MAY REPEAT ONCE oxycodone 5 mg tablet 5 mg PO BID PRN (Reason: severe pain) duloxetine 60 mg capsule,delayed release(DR/EC) 60 mg PO BID Eliquis 5 mg tablet 5 mg PO BID lorazepam 2 mg tablet 4 mg PO TID PRN (Reason: Anxiety) Label Comments: PATIENT STATES PROVIDER TEMPORARILY INCREASED HIS LORAZEPAM DOSE FROM 2 MG TID UP TO 4 MG TID LAST WEEK albuterol sulfate 90 mcg/actuation Hfa Aerosol Inhaler 2 puff INHALATION Q4-6H PRN (Reason: Shortness Of Breath Or Wheezing) fluticasone propionate 50 mcg/actuation [place],Suspension 1 spray INTRANASAL BID Rx Instructions: administer into each nostril Discontinued metoprolol succinate 50 mg tablet extended release 24 hr 50 mg PO DAILY Discharge Orders: Discharge Order (Routine); Ordered 04/17/22 Ordered By: Lyn Obrien Diet: Diabetic diet Activity on Discharge: As tolerated Stand Alone Forms: Patient Portal Discharge page Other Ambulatory Orders: Basic Metabolic Panel Fasting (Routine) Timeframe: 1 Week Facility: [facility] - Location: Laboratory Ordered By: Lyn Obrien Care Plan Goals: Start taking digoxin every other day increased metoprolol to 75 mg twice/day please stop taking the metoprolol 50 mg and instead take 75 mg twice/.day please follow up with primary care as well as cardiology in 1-2 wks continue working with physical therapy Health Concerns: Recurrent A fib with RVR Plan of Treatment: Started digoxin every other day increased metoprolol PT at home Assessment: as above Discharge Date/Time: 04/17/22 12:58
--- NOTE | 2022-04-17 10:56 | MHC.CM.PN ---
DP: PT MEDICALLY CLEARED FOR DISCHARGE, HOME WITH RESUMPTION OF [facility] SERVICES. [facility] UPDATED, RN AWARE. BLS BOOKED WITH [facility] FOR 1 PM.
[2022-04-17 11:10] VITALS: BP 133/65; PULSE 78; RESP 18; TEMP 36.4; O2SAT 95
[2022-04-17 11:18] LABS: Glucose, Whole Blood 192 mg/dL (60-115)
--- NOTE | 2022-04-17 11:21 | W.MHC.F2F ---
Service Date Service Date: 04/17/22 Encounter Date of encounter: 04/17/22 Reasons for Services Signs and symptoms assessed: Fall, weakness, chronic deconditioned Reason for physical therapy: home safety and mobility Homebound: Leaving the home is medically contraindicated at this time without the asist of a device and/or another person due th the listed conditions above and below. Reason homebound: unsteady gait / fall risk, leg weakness, bedbound/chairbound and pain with ambulation Certification: Based on the above findings, I certify that this patient is confined to the home and needs intermittent group home care, physical therapy and/or speech therapy, or continues to need occupational therapy. The patient is under my care, and I have initiated the establishment of the plan of care. The patient will be followed by a physician who will periodically review the plan of care.
== END 2022-04-17 12:58 | disposition home health service (06) | DRG 201 ==
LOC: HO.ED 12:35 → HO.EDOVER 18:51 → HO.IMC 04-14 15:57
PROVIDERS: Hospitalist; Internal Medicine; Nurse Practitioner Family; Admitting Provider Physician Assistant; Emergency Provider Emergency Medicine Emergency Medical Services; PCP Hospitalist; Visit Provider Internal Medicine
DX: I48.0 Paroxysmal atrial fibrillation (principal); E11.40 Type 2 diabetes mellitus with diabetic neuropathy, unspecified; Z68.43 Body mass index [BMI] 50.0-59.9, adult; F41.9 Anxiety disorder, unspecified; F43.10 Post-traumatic stress disorder, unspecified; I69.398 Other sequelae of cerebral infarction; E78.5 Hyperlipidemia, unspecified; K21.9 Gastro-esophageal reflux disease without esophagitis; E11.65 Type 2 diabetes mellitus with hyperglycemia; F32.A Depression, unspecified; E87.5 Hyperkalemia; I25.10 Atherosclerotic heart disease of native coronary artery without angina pectoris; E66.01 Morbid (severe) obesity due to excess calories; R26.89 Other abnormalities of gait and mobility; M17.11 Unilateral primary osteoarthritis, right knee; Z20.822 Contact with and (suspected) exposure to COVID-19; G40.909 Epilepsy, unspecified, not intractable, without status epilepticus; Z86.718 Personal history of other venous thrombosis and embolism; Z91.040 Latex allergy status; Z91.030 Bee allergy status; Z88.0 Allergy status to penicillin; Z88.8 Allergy status to other drugs, medicaments and biological substances; Z79.01 Long term (current) use of anticoagulants; Z79.51 Long term (current) use of inhaled steroids; Z79.84 Long term (current) use of oral hypoglycemic drugs; Z79.899 Other long term (current) drug therapy
CPT/HCPCS: 36415; 70450; 71046; 72125; 73030; 73562; 80048; 80053; 80061; 80185; 81003; 82550; 82728; 82947; 83540; 83735; 83880; 84484; 85025; 85027; 85610; 87635; 93005; 93306; 97110; 97116; 97162; 97166; 97530; 99285; J1170; J1756; J1940; J2270; J2405; Q9957

== ENCOUNTER 2022-05-22 11:02 | Emergency (ER) | payer OTHER, SELFPAY ==
--- NOTE | ~2022-05-22 | XR_ITS ---
EXAMINATION: XR CHEST CLINICAL INFORMATION: Shortness of breath COMPARISON: Chest x-ray April 13, 2022 TECHNIQUE: Frontal view of the chest was obtained. FINDINGS: Cardiac silhouette is normal in size. The lungs are adequately aerated. There is no lobar consolidation. No pleural effusion or pneumothorax. XR/XR chest 1V IMPRESSION: No acute pulmonary pathology.
--- NOTE | ~2022-05-22 | CT_ITS ---
EXAM: Noncontrast CT scan of the head and cervical spine. INDICATION: Fall out of bed COMPARISON: CT head and cervical spine April 13, 2022 TECHNIQUE: Axial slices were obtained from skull base to vertex and displayed. This was followed by helical, multislice, multidetector axial images from the occiput to the upper thorax. Coronal and sagittal reformats of the cervical spine in addition to coronal reformats of the head were obtained at the technologist workstation. Today's examination is limited secondary to motion artifact and body habitus, particularly imaging of the cervical spine. DLP: 1046 mGy-cm FINDINGS: HEAD: There is no evidence of acute intracranial hemorrhage or territorial infarction. No abnormal mass effect or midline shift is appreciated. Mathews-white differentiation is well preserved. No extra-axial fluid collections. The ventricular system and cortical sulci are prominent, consistent with volume loss. Mild cerebellar volume loss is also appreciated. There are areas of low density in the periventricular and subcortical white matter, most consistent with sequelae of microvascular ischemic change. Encephalomalacia consistent with old infarcts again noted within the left parietal lobe and left cerebellum. The osseous structures and soft tissues are normal. Mild mucosal thickening of the maxillary sinuses. The visualized paranasal sinuses and mastoid air cells are otherwise well aerated. SPINE: Diffuse osteopenia. Normal alignment of the cervical spine. Cervical vertebral body heights are maintained. Normal C1/2 articulation. There is mild disc space narrowing within the lower cervical spine. Mild diffuse facet hypertrophy bilaterally. Visualized lung apices are well aerated. CT/CT cervical spine wo IV con IMPRESSION: 1. No acute intracranial pathology. 2. No fractures or dislocations of the cervical spine. This CT examination was performed using dose optimization techniques as appropriate, variously including the following: *Automated exposure control *Adjustment of mA and/or kV according to patient size (this includes techniques or standardized protocols for targeted exams where dose is matched to indication/reason for exam; i.e. extremities or head) *Use of iterative reconstruction technique
--- NOTE | 2022-05-22 11:18 | ECG_ITS ---
Test Reason : FALL Blood Pressure : / mmHG Vent. Rate : 111 BPM Atrial Rate : 000 BPM P-R Int : 000 ms QRS Dur : 162 ms QT Int : 390 ms P-R-T Axes : 000 -88 055 degrees QTc Int : 530 ms Atrial fibrillation with rapid ventricular response Left axis deviation Right bundle branch block Inferior infarct (cited on or before 24-MAR-2020) Abnormal ECG When compared with ECG of 14-APR-2022 07:36, No significant change was found Referred By: Faye Valdez Electronically Signed By:IRVING ORTEGA
[2022-05-22 11:19] VITALS: BP 129/52; PULSE 111; RESP 20; TEMP 36.8; O2SAT 92; BMI 50.0
--- NOTE | 2022-05-22 11:21 | ED_ITS ---
HPI - Fall General Chief Complaint: Fall Stated Complaint: Fall (out of bed last night) per EMS Time Seen by Provider: 05/22/22 11:09 Source: patient, EMS and old records reviewed Mode of arrival: EMS Limitations: no limitations History of Present Illness HPI Narrative: 61-year-old male with history of morbid obesity, wheelchair-bound, history of stroke, HLD, diabetes, PTSD, asthma, HTN, AFib on Eliquis, history of lower extremity DVT, history of recurrent falls who presents to the ER for evaluation after he was found on the floor next to his bed this morning. He states he fell out of bed last night, which is a recurrent problem for him and happens a few times per week. Was on the floor and unable to open the door because his wheelchair was blocking it. He was incontinent of urine and stool. He uses iPad to contact his friends and have them call 911 for him. He was initially refusing transfer to the hospital but was encouraged come for evaluation. He denies any physical complaints. MD complaint: fall Onset (ago): hour(s) Fall from: out of bed Fall witnessed: no Place fall occurred: home Loss of consciousness: none Prolonged down time: yes Symptoms prior to fall: none Related Data Home Medications Medication Instructions Recorded Confirmed atorvastatin 20 mg tablet 20 mg PO DAILY 03/23/20 04/13/22 cholecalciferol (vitamin D3) 50 50 mcg PO DAILY 03/23/20 04/13/22 mcg (2,000 unit) tablet cyanocobalamin (vitamin B-12) 1,000 mcg PO DAILY 03/23/20 04/13/22 1,000 mcg tablet,extended release (Vitamin B-12 ER) furosemide 40 mg tablet 40 mg PO BID 03/23/20 04/13/22 hydroxyzine HCl 25 mg tablet 25 mg PO TID PRN anxiety 03/23/20 04/13/22 isosorbide mononitrate 60 mg 60 mg PO QAM 03/23/20 04/13/22 tablet,extended release 24 hr metformin 1,000 mg tablet 1,000 mg PO QAM 03/23/20 04/13/22 nystatin 100,000 unit/gram topical 100,000 unit topical BID PRN Rash 03/23/20 04/13/22 powder ([facility]) pantoprazole 40 mg tablet,delayed 40 mg PO DAILY 03/23/20 04/13/22 release phenytoin sodium extended 100 mg 200 mg PO DAILY@0730 03/23/20 04/13/22 capsule phenytoin sodium extended 100 mg 400 mg PO BEDTIME 03/23/20 04/13/22 capsule trazodone 50 mg tablet 100 mg PO BEDTIME 03/23/20 04/13/22 albuterol sulfate 90 mcg/actuation 2 puff inhalation Q4-6H PRN 04/13/22 04/13/22 aerosol inhaler Shortness Of Breath Or Wheezing apixaban 5 mg tablet (Eliquis) 5 mg PO BID 04/13/22 04/13/22 duloxetine 60 mg capsule,delayed 60 mg PO BID 04/13/22 04/13/22 release fluticasone propionate 50 1 spray intranasal BID 04/13/22 04/13/22 mcg/actuation nasal spray,suspension gabapentin 400 mg capsule 400 mg PO 5XD 04/13/22 04/13/22 lorazepam 2 mg tablet 4 mg PO TID PRN Anxiety 04/13/22 04/13/22 oxycodone 5 mg tablet 5 mg PO BID PRN severe pain 04/13/22 04/13/22 quetiapine 100 mg tablet 100 mg PO BEDTIME PRN insomnia 04/13/22 04/13/22 Previous Rx's Medication Instructions Recorded digoxin 125 mcg (0.125 mg) tablet 0.125 mg PO Q2D 30 days #15 tabs 04/17/22 metoprolol succinate 25 mg 75 mg PO BID 30 days #180 tabs 04/17/22 tablet,extended release 24 hr Allergies Allergy/AdvReac Type Severity Reaction Status Date / Time aspirin Allergy Severe OCCASIONAL Verified 04/08/22 14:18 RASH / TONGUE SWELLING, Hives, throat swellig bee pollen [BEE STINGS] Allergy Severe ANAPHYLAXIS Verified 04/08/22 14:18 Penicillins Allergy Severe ANAPHYLAXIS Verified 04/08/22 14:18 povidone-iodine [Betadine] Allergy Severe Redness of Verified 04/08/22 14:18 Skin soap [Betadine] Allergy Severe Redness of Verified 04/08/22 14:18 Skin spider venom [SPIDER BITES] Allergy Severe Hives Verified 04/08/22 14:18 amoxicillin Allergy Intermediate Hives Verified 04/08/22 14:18 clindamycin Allergy Mild RASH Verified 04/08/22 14:18 latex [Latex] Allergy Mild RASH Verified 04/08/22 14:18 bupropion [From WELLBUTRIN] AdvReac Severe SEIZURES Verified 04/08/22 14:18 adhesive tape AdvReac Mild Rash Verified 04/14/22 15:55 Review of Systems Review of Systems: Constitutional: No Fever, No Chills ENT/Mouth: No sore throat, No Rhinorrhea, No Swallowing Difficulty Cardiovascular: No Chest Pain, No SOB, No Orthopnea, No Edema Respiratory: No Cough, No Sputum, No Wheezing, No dyspnea Gastrointestinal: No Nausea, No Vomiting, +Diarrhea, No abdominal Pain, No Hemat ochezia, No Melena Genitourinary: No Dysuria, No Urinary Frequency, No Hematuria Musculoskeletal: No joint pain, No Myalgias Skin: + Skin Lesions, No rash Neuro: + Weakness, No Numbness, No Dizziness, No Headache Psych: No Anxiety/Panic, No Depression Heme/Lymph: No Bruising, No Lymphadenopathy Endocrine: No Polyuria, No Polydipsia [facility] Past Medical History Medical History Anxiety Arthritis Asthma Coronary artery disease Diabetes mellitus, type 2 Hypertension Obesity PTSD (post-traumatic stress disorder) TIA (transient ischemic attack) Social History Social History Household Members: None Housing: Apartment Do you presently have visiting nurse or other home services: Yes Alcohol intake: never Patient Tobacco Use Status: Never used Tobacco Second Hand Smoke Exposure: No Advance Directives: Yes Advance Directives on File: Yes Advance Directives Date on File: 04/14/22 service: No Current occupational status: disabled Physical Exam Vital Signs: Vital Signs: Last Vital Signs Temp 98.9 F 05/22/22 15:21 Pulse 95 05/22/22 15:21 Resp 22 H 05/22/22 15:21 BP 129/65 05/22/22 15:21 Pulse Ox 90 L 05/22/22 15:21 O2 Del Method 05/22/22 15:21 BMI result Body Mass Index 50.0 Appearance: Alert. Oriented X3. No acute distress. Smells of stool Eyes: Pupils equal, round and reactive to light. ENT: Pharynx normal. Neck: Normal inspection. Neck supple. CVS: Tachycardic, irregularly irregular, heart rate 100s, Pulses normal. Respiratory: No respiratory distress. Breath sounds Diminished at the bilateral bases, no wheezes, rales Abdomen: morbidly obese, soft and nontender. +BS x4 Skin: Skin warm and dry. Normal skin color. Normal skin turgor. No rashes. Extremities: 2+lower extremity edema with erythema over the lower portion of the right lower leg, no warmth or tenderness. erythema in the flexor surface of the LUE, pruritic. small superficial abrasions on the bilateral knees with dried blood Neuro: Oriented X 3. No motor deficit. No sensory deficit. Nonfocal. Course Course Course Narrative: 61 yo male With history of morbid obesity, AFib on Eliquis, CHF, HTN, HLD, dm 2, CVA, asthma, GERD, RADHA noncompliant with CPAP who frequently sustained falls out of bed or out of his wheelchair presents to the ER for evaluation of a fall out of bed overnight. He was incontinent of stool he was lying on the ground which is why he decided to come to the ER to get cleaned up. he denies hitting his head or sustaining any injuries. He states he fell the other night as well as a couple small abrasions on his knees. He was at [facility] last week after he fell on the ground and was altered afterward. Will get basis records. On arrival to the ER he has some mild tachycardia, heart rate 110 in AFib. Asymptomatic. No physical complaints. Will order his p.o. rate controlling medications which include metoprolol, Cardizem, digoxin. Will reassess. CT scan of his head and neck were ordered due to him being on Eliquis Reevaluation(s) Reevaluation #1: lab workup showing mild JIN. UA with hyaline cast. Most likely due to mild dehydration. Will hydrate and reassess. CT head and neck is unremarkable, no acute injuries or bleed. No evidence of infection. Reevaluation #2: Patient's heart rates now in the 90s after his p.o. meds. Extensive records from [facility] have been sent over. He was discharged on May 17 after he declined short-term rehab. 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 He has no coverage at nighttime. We discussed being seen by Physical therapy and going to short-term rehab however he has adamantly refusing. He states he would rather go home. We discussed safety issues and he understands the risks. Spoke with case management director who is going to arrange for VNA services at home. Patient is grateful for this. Comfortable discharge home with additional services. He was encouraged follow-up with his primary care doctor next week. Medications Administered Discontinued Medications Generic Name Dose Route Start Last Admin Trade Name Leonel PRN Reason Stop Dose Admin Digoxin 0.125 mg 05/22/22 13:37 05/22/22 13:54 Digoxin 0.125 Mg Tablet PO 05/22/22 13:38 0.125 mg ONCE ONE Administration Diltiazem HCl 360 mg 05/22/22 13:37 05/22/22 13:54 Diltiazem Hcl Cd 180 Mg Cap.Er.24h PO 05/22/22 13:38 360 mg ONCE ONE Administration Protocol Gabapentin 400 mg 05/22/22 13:37 05/22/22 13:54 Gabapentin 400 Mg Capsule PO 05/22/22 13:38 400 mg ONCE ONE Administration Sodium Chloride 1,000 mls @ 999 mls/hr 05/22/22 11:30 05/22/22 12:53 Ns IVCONT 05/22/22 12:30 Infused .Q1H1M YOHAN Infusion Lorazepam 2 mg 05/22/22 13:37 05/22/22 13:54 Lorazepam 1 Mg Tablet PO 05/22/22 13:38 2 mg ONCE ONE Administration Metoprolol Succinate 75 mg 05/22/22 11:57 05/22/22 12:20 Metoprolol Succinate Er 25 Mg Tab.Er.24h PO 05/22/22 11:58 75 mg ONCE ONE Administration Protocol Medical Decision Making Lab Data Result Diagrams: 05/22/22 11:43 05/22/22 14:02 Labs: Lab Results 05/22/22 05/22/22 05/22/22 Range/Units 11:43 11:43 11:43 WBC 8.7 (4.8-10.8) X10*3/uL RBC 4.37 L (4.60-5.80) X10*6/uL Hgb 9.5 L (14.0-18.0) g/dl Hct 33.9 L (42.0-52.0) % MCV 77.6 L (80.0-98.0) fL MCH 21.7 L (27.0-33.0) pg MCHC 28.0 L (31.0-36.0) g/dl RDW 20.5 H (11.0-16.0) % Plt Count 299 D (160-400) X10*3/uL MPV 10.1 (9.4-12.4) fL Immature Gran % (Auto) 0.5 H (0.0-0.4) % Neut % (Auto) 85.4 H (45-73) % Lymph % (Auto) 8.9 L (20-40) % [place] % (Auto) 4.7 (2-11) % Eos % (Auto) 0.3 (0-4) % Baso % (Auto) 0.2 (0-2) % Lymph # (Auto) 0.8 L (1.2-4.9) X10*3/uL [place] # (Auto) 0.4 (0.1-1.2) X10*3/uL Eos # (Auto) 0.0 (0.0-0.4) X10*3/uL Baso # (Auto) 0.0 (0.0-0.2) X10*3/uL Abs Immat Gran (auto) 0.04 H (0.00-0.03) X10*3/uL Absolute Neuts (auto) 7.4 (2.0-8.3) x10*3/uL Absolute Nucleated RBC 0.000 (0.0-0.012) X10*3/uL Nucleated RBC % (auto) 0.0 (0.0-0.2) /100WBC PT 16.2 H (10.0-13.1) SEC INR 1.4 H (0.9-1.1) APTT 32.5 (26.0-36.4) SEC Sodium 136 (135-145) mmol/L Potassium 4.6 (3.3-5.1) mmol/L Chloride 97 (96-108) mmol/L Carbon Dioxide 30 H (22-29) mmol/L Anion Gap 14 (12-20) BUN 19 H D (9-16) mg/dL Creatinine 1.45 H (0.5-1.4) mg/dL Estim Creat Clear Calc 90.9 Estimated GFR 49 Random Glucose 321 H D (60-115) mg/dL Calcium 8.8 (8.4-10.2) mg/dL Magnesium 1.5 L (1.6-2.6) mg/dL Total Bilirubin 0.3 (0.0-1.0) mg/dL Direct Bilirubin 0.2 (0.0-0.5) mg/dL AST 7 (5-37) U/L ALT 8 (0-40) U/L Alkaline Phosphatase 107 (39-117) U/L Total Creatine Kinase 63 (38-174) U/L Troponin I High Sens (<3.5-35.0) ng/L B-Natriuretic Peptide (<100) pg/mL Total Protein 6.5 (6.5-8.0) g/dL Albumin 3.7 (3.5-5.0) g/dL Urine Color Urine Appearance Urine pH (5.0-9.0) Ur Specific [place] (1.005-1.025) Urine Protein (Neg-Trace) mg/dL Urine Glucose (UA) (Negative) mg/dL Urine Ketones (Negative) mg/dL Urine Blood (Negative) Urine Nitrite (Negative) Ur Leukocyte Esterase (Negative) Urine RBC (0-2) /HPF Urine WBC (0-5) /HPF Ur Squamous Epith Cells (0-2) /HPF Urine Bacteria (None Seen) Hyaline Casts (0-2) /LPF Influenza Type A (PCR) (Negative) Influenza Type B (PCR) (Negative) RSV RNA Qual (PCR) (Negative) SARS-CoV-2 RNA (RT-PCR) (Negative) 05/22/22 05/22/22 05/22/22 Range/Units 11:43 11:43 11:43 WBC (4.8-10.8) X10*3/uL RBC (4.60-5.80) X10*6/uL Hgb (14.0-18.0) g/dl Hct (42.0-52.0) % MCV (80.0-98.0) fL MCH (27.0-33.0) pg MCHC (31.0-36.0) g/dl RDW (11.0-16.0) % Plt Count (160-400) X10*3/uL MPV (9.4-12.4) fL Immature Gran % (Auto) (0.0-0.4) % Neut % (Auto) (45-73) % Lymph % (Auto) (20-40) % [place] % (Auto) (2-11) % Eos % (Auto) (0-4) % Baso % (Auto) (0-2) % Lymph # (Auto) (1.2-4.9) X10*3/uL [place] # (Auto) (0.1-1.2) X10*3/uL Eos # (Auto) (0.0-0.4) X10*3/uL Baso # (Auto) (0.0-0.2) X10*3/uL Abs Immat Gran (auto) (0.00-0.03) X10*3/uL Absolute Neuts (auto) (2.0-8.3) x10*3/uL Absolute Nucleated RBC (0.0-0.012) X10*3/uL Nucleated RBC % (auto) (0.0-0.2) /100WBC PT (10.0-13.1) SEC INR (0.9-1.1) APTT (26.0-36.4) SEC Sodium (135-145) mmol/L Potassium (3.3-5.1) mmol/L Chloride (96-108) mmol/L Carbon Dioxide (22-29) mmol/L Anion Gap (12-20) BUN (9-16) mg/dL Creatinine (0.5-1.4) mg/dL Estim Creat Clear Calc Estimated GFR Random Glucose (60-115) mg/dL Calcium (8.4-10.2) mg/dL Magnesium (1.6-2.6) mg/dL Total Bilirubin (0.0-1.0) mg/dL Direct Bilirubin (0.0-0.5) mg/dL AST (5-37) U/L ALT (0-40) U/L Alkaline Phosphatase (39-117) U/L Total Creatine Kinase (38-174) U/L Troponin I High Sens 9.5 (<3.5-35.0) ng/L B-Natriuretic Peptide 159 H (<100) pg/mL Total Protein (6.5-8.0) g/dL Albumin (3.5-5.0) g/dL Urine Color Urine Appearance Urine pH (5.0-9.0) Ur Specific [place] (1.005-1.025) Urine Protein (Neg-Trace) mg/dL Urine Glucose (UA) (Negative) mg/dL Urine Ketones (Negative) mg/dL Urine Blood (Negative) Urine Nitrite (Negative) Ur Leukocyte Esterase (Negative) Urine RBC (0-2) /HPF Urine WBC (0-5) /HPF Ur Squamous Epith Cells (0-2) /HPF Urine Bacteria (None Seen) Hyaline Casts (0-2) /LPF Influenza Type A (PCR) NEGATIVE (Negative) Influenza Type B (PCR) NEGATIVE (Negative) RSV RNA Qual (PCR) NEGATIVE (Negative) SARS-CoV-2 RNA (RT-PCR) NEGATIVE (Negative) 05/22/22 05/22/22 Range/Units 14:02 15:24 WBC (4.8-10.8) X10*3/uL RBC (4.60-5.80) X10*6/uL Hgb (14.0-18.0) g/dl Hct (42.0-52.0) % MCV (80.0-98.0) fL MCH (27.0-33.0) pg MCHC (31.0-36.0) g/dl RDW (11.0-16.0) % Plt Count (160-400) X10*3/uL MPV (9.4-12.4) fL Immature Gran % (Auto) (0.0-0.4) % Neut % (Auto) (45-73) % Lymph % (Auto) (20-40) % [place] % (Auto) (2-11) % Eos % (Auto) (0-4) % Baso % (Auto) (0-2) % Lymph # (Auto) (1.2-4.9) X10*3/uL [place] # (Auto) (0.1-1.2) X10*3/uL Eos # (Auto) (0.0-0.4) X10*3/uL Baso # (Auto) (0.0-0.2) X10*3/uL Abs Immat Gran (auto) (0.00-0.03) X10*3/uL Absolute Neuts (auto) (2.0-8.3) x10*3/uL Absolute Nucleated RBC (0.0-0.012) X10*3/uL Nucleated RBC % (auto) (0.0-0.2) /100WBC PT (10.0-13.1) SEC INR (0.9-1.1) APTT (26.0-36.4) SEC Sodium 136 (135-145) mmol/L Potassium 4.7 (3.3-5.1) mmol/L Chloride 99 (96-108) mmol/L Carbon Dioxide 29 (22-29) mmol/L Anion Gap 13 (12-20) BUN 17 H (9-16) mg/dL Creatinine 1.22 (0.5-1.4) mg/dL Estim Creat Clear Calc 108.0 Estimated GFR 60 Random Glucose 291 H (60-115) mg/dL Calcium 8.3 L (8.4-10.2) mg/dL Magnesium (1.6-2.6) mg/dL Total Bilirubin (0.0-1.0) mg/dL Direct Bilirubin (0.0-0.5) mg/dL AST (5-37) U/L ALT (0-40) U/L Alkaline Phosphatase (39-117) U/L Total Creatine Kinase (38-174) U/L Troponin I High Sens (<3.5-35.0) ng/L B-Natriuretic Peptide (<100) pg/mL Total Protein (6.5-8.0) g/dL Albumin (3.5-5.0) g/dL Urine Color Yellow Urine Appearance Clear Urine pH 5.0 (5.0-9.0) Ur Specific [place] 1.020 (1.005-1.025) Urine Protein Negative (Neg-Trace) mg/dL Urine Glucose (UA) Negative (Negative) mg/dL Urine Ketones Negative (Negative) mg/dL Urine Blood Negative (Negative) Urine Nitrite Negative (Negative) Ur Leukocyte Esterase Trace H (Negative) Urine RBC 0-2 (0-2) /HPF Urine WBC 0-5 (0-5) /HPF Ur Squamous Epith Cells 0-2 (0-2) /HPF Urine Bacteria None Seen (None Seen) Hyaline Casts 3-5 (0-2) /LPF Influenza Type A (PCR) (Negative) Influenza Type B (PCR) (Negative) RSV RNA Qual (PCR) (Negative) SARS-CoV-2 RNA (RT-PCR) (Negative) Independent Interpretation I performed an independent interpretation of an: EKG Interpretation: atrial fibrillation with rapid ventricular response, heart rate 111 beats per minute, right bundle-branch block with wide QRS, no ST segment elevations, unc hanged from prior. Discharge Plan Discharge Clinical Impression: Recurrent falls Patient Disposition: Home, Self-Care Instructions: Fall Prevention for Older Adults (ED) Additional Instructions: Your CT scans did not show any acute injuries. Your labs showed some mild dehydration that improved with IV fluids. Short term rehab is recommended however you declined. You are being discharged home with VNA services. Follow up with your PCP next week. Prescriptions: No Action furosemide 40 mg tablet 40 mg PO BID cyanocobalamin (vitamin B-12) [Vitamin B-12] 1,000 mcg tablet extended release 1,000 mcg PO DAILY atorvastatin 20 mg tablet 20 mg PO DAILY trazodone 50 mg tablet 100 mg PO BEDTIME phenytoin sodium extended 100 mg capsule 200 mg PO DAILY@0730 isosorbide mononitrate 60 mg tablet extended release 24 hr 60 mg PO QAM pantoprazole 40 mg tablet,delayed release (DR/EC) 40 mg PO DAILY metformin 1,000 mg tablet 1,000 mg PO QAM hydroxyzine HCl 25 mg tablet 25 mg PO TID PRN (Reason: anxiety) nystatin [Nyamyc] 100,000 unit/gram powder 100,000 unit topical BID PRN (Reason: Rash) cholecalciferol (vitamin D3) 50 mcg (2,000 unit) tablet 50 mcg PO DAILY phenytoin sodium extended 100 mg capsule 400 mg PO BEDTIME gabapentin 400 mg capsule 400 mg PO 5XD Rx Instructions: hold for sedation quetiapine 100 mg tablet 100 mg PO BEDTIME MDD 2 PRN (Reason: insomnia) Rx Instructions: MAY REPEAT ONCE oxycodone 5 mg tablet 5 mg PO BID PRN (Reason: severe pain) duloxetine 60 mg capsule,delayed release(DR/EC) 60 mg PO BID Eliquis 5 mg tablet 5 mg PO BID lorazepam 2 mg tablet 4 mg PO TID PRN (Reason: Anxiety) Label Comments: PATIENT STATES PROVIDER TEMPORARILY INCREASED HIS LORAZEPAM DOSE FROM 2 MG TID UP TO 4 MG TID LAST WEEK albuterol sulfate 90 mcg/actuation Hfa Aerosol Inhaler 2 puff INHALATION Q4-6H PRN (Reason: Shortness Of Breath Or Wheezing) fluticasone propionate 50 mcg/actuation [place],Suspension 1 spray INTRANASAL BID Rx Instructions: administer into each nostril digoxin 125 mcg (0.125 mg) Tablet 0.125 mg PO Q2D 30 Days Qty: 15 0RF metoprolol succinate 25 mg Tablet Extended Release 24 Hr 75 mg PO BID 30 Days Qty: 180 1RF Protocol: Hold for SBP/HR < HOLD for SBP < : 90 HOLD for HR < : 60 Referrals: Juli MILAN [Outside]
[2022-05-22 11:45] LABS: MANUAL DIFF FLAG NO
[2022-05-22] MEDS: 0.9 % Sodium Chloride 1,000 ML 999 ML IVCONT (11:48)
[2022-05-22 11:58] LABS: Basophils Percent Auto 0.2 % (0-2); Eosinophils Percent Auto 0.3 % (0-4); Hematocrit 33.9 % (42.0-52.0); Hemoglobin 9.5 g/dl (14.0-18.0); Imm Gran Abs Auto 0.04 X10*3/uL (0.00-0.03); Imm Gran Pct Auto 0.5 % (0.0-0.4); Lymphocytes Absolute Auto 0.8 X10*3/uL (1.2-4.9); Lymphocytes Percent Auto 8.9 % (20-40); Mean Corpuscular Hemoglobin 21.7 pg (27.0-33.0); Mean Corpuscular Volume 77.6 fL (80.0-98.0); Mean Platelet Volume 10.1 fL (9.4-12.4); Monocytes Absolute Auto 0.4 X10*3/uL (0.1-1.2); Monocytes Percent Auto 4.7 % (2-11); Neutrophils Absolute Auto 7.4 x10*3/uL (2.0-8.3); Neutrophils Percent Auto 85.4 % (45-73); Platelet Count 299 X10*3/uL (160-400); Red Blood Count 4.37 X10*6/uL (4.60-5.80); Red Cell Distribution Width 20.5 % (11.0-16.0); White Blood Count 8.7 X10*3/uL (4.8-10.8)
[2022-05-22 12:01] LABS: INTERNATIONAL NORM RATIO 1.4 (0.9-1.1); Prothrombin Time 16.2 SEC (10.0-13.1)
[2022-05-22 12:04] LABS: Partial Thromboplastin Time 32.5 SEC (26.0-36.4)
[2022-05-22 12:11] LABS: Troponin-I High Sensitivity 9.5 ng/L (<3.5-35.0)
[2022-05-22 12:15] LABS: Alanine Aminotransferase 8 U/L (0-40); Albumin Level 3.7 g/dL (3.5-5.0); Alkaline Phosphatase 107 U/L (39-117); Anion Gap 14 (12-20); Aspartate Amino Transferase 7 U/L (5-37); B Type Natriuretic Peptide 159 pg/mL (<100); Bilirubin Direct 0.2 mg/dL (0.0-0.5); Blood Urea Nitrogen 19 mg/dL (9-16); Calcium 8.8 mg/dL (8.4-10.2); Carbon Dioxide 30 mmol/L (22-29); Chloride 97 mmol/L (96-108); Creatinine Clr Calc Pharmacy 90.9; Estimated Glomerular Filt Rate 49; Glucose Random 321 mg/dL (60-115); Magnesium 1.5 mg/dL (1.6-2.6); Potassium 4.6 mmol/L (3.3-5.1); Sodium 136 mmol/L (135-145); Total Protein 6.5 g/dL (6.5-8.0)
[2022-05-22] MEDS: Metoprolol Succinate ER 25 MG TAB.ER.24H 75 MG PO (12:20)
[2022-05-22 12:30] LABS: Influenza A PCR NEGATIVE (Negative); Influenza B PCR NEGATIVE (Negative); Resp Syncy Virus RNA Qual PCR NEGATIVE (Negative); SARS COV2 PCR INHOUSE NEGATIVE (Negative)
[2022-05-22 12:32] LABS: Bilirubin Total 0.3 mg/dL (0.0-1.0)
[2022-05-22] MEDS: Gabapentin 400 MG CAPSULE PO (13:54)
[2022-05-22] MEDS: Digoxin 0.125 MG TABLET PO (13:54)
[2022-05-22] MEDS: dilTIAZem HCL CD 180 MG CAP.ER.24H 360 MG PO (13:54)
[2022-05-22] MEDS: LORazepam 1 MG TABLET 2 MG PO (13:54)
[2022-05-22 14:33] LABS: Anion Gap 13 (12-20); Blood Urea Nitrogen 17 mg/dL (9-16); Calcium 8.3 mg/dL (8.4-10.2); Carbon Dioxide 29 mmol/L (22-29); Chloride 99 mmol/L (96-108); Estimated Glomerular Filt Rate 60; Glucose Random 291 mg/dL (60-115); Potassium 4.7 mmol/L (3.3-5.1); Sodium 136 mmol/L (135-145)
--- NOTE | 2022-05-22 15:17 | MHC.CM.PN ---
S/P fall home services requested by ER Clinician. A referral was sent to [facility]. A phone call was also made to notify the service to alert the RN senior process control tech.
[2022-05-22 15:21] VITALS: BP 129/65; PULSE 95; RESP 22; TEMP 37.2; O2SAT 90
[2022-05-22 15:31] LABS: Appearance Urine Clear; Color Urine Yellow; Glucose Urine UA Negative (Negative); Leukocyte Esterase Urine Trace (Negative); Nitrite Urine Negative (Negative); UMIC TRIGGER UACC YES; Urine Blood Negative (Negative); Urine Ketones Negative (Negative); Urine Protein Negative (Neg-Trace)
[2022-05-22 15:41] LABS: Bacteria Urine None Seen (None Seen); RBC Urine 0-2 /HPF (0-2); Squamous Epithelial Cell Urine 0-2 /HPF (0-2); WBC Urine 0-5 /HPF (0-5)
[2022-05-22 19:47] VITALS: BP 127/67; PULSE 96; RESP 18; TEMP 36.8; O2SAT 93
[2022-05-22 22:12] VITALS: BP 133/58; PULSE 100; RESP 28; TEMP 36.6; O2SAT 92
[2022-05-23] MEDS: Gabapentin 400 MG CAPSULE PO (02:31)
[2022-05-23] MEDS: Apixaban 5 MG TABLET PO (02:31)
[2022-05-23] MEDS: LORazepam 1 MG TABLET 4 MG PO (02:31)
[2022-05-23] MEDS: Phenytoin Sodium Extended 100 MG CAPSULE 400 MG PO (02:32)
[2022-05-23 02:39] VITALS: BP 137/77; PULSE 96; RESP 14; TEMP 36.8; O2SAT 92
== END 2022-05-23 02:57 | disposition home or self-care (01) ==
PROVIDERS: Physician Assistant; Emergency Provider Emergency Medicine; PCP Hospitalist
DX: R29.6 Repeated falls (principal); R60.0 Localized edema; R00.0 Tachycardia, unspecified; Z20.822 Contact with and (suspected) exposure to COVID-19; E11.9 Type 2 diabetes mellitus without complications; I10 Essential (primary) hypertension; E78.5 Hyperlipidemia, unspecified; I48.91 Unspecified atrial fibrillation; E66.01 Morbid (severe) obesity due to excess calories; Z68.43 Body mass index [BMI] 50.0-59.9, adult; Z86.718 Personal history of other venous thrombosis and embolism; Z86.73 Personal history of transient ischemic attack (TIA), and cerebral infarction without residual deficits; Z99.3 Dependence on wheelchair; Z79.01 Long term (current) use of anticoagulants; Z79.02 Long term (current) use of antithrombotics/antiplatelets; Z79.84 Long term (current) use of oral hypoglycemic drugs; Z79.899 Other long term (current) drug therapy
CPT/HCPCS: 0241U; 36415; 70450; 71045; 72125; 80048; 80076; 81001; 82550; 83735; 83880; 84484; 85025; 85610; 85730; 93005; 96360; 99284

== ENCOUNTER 2022-06-10 14:18 | Emergency (ER) | payer OTHER, SELFPAY ==
--- NOTE | 2022-06-10 | ECG_ITS ---
Test Reason : WEAKNESS Blood Pressure : / mmHG Vent. Rate : 114 BPM Atrial Rate : 000 BPM P-R Int : 000 ms QRS Dur : 150 ms QT Int : 404 ms P-R-T Axes : 000 263 058 degrees QTc Int : 556 ms Atrial fibrillation with rapid ventricular response Right bundle branch block Possible Lateral infarct , age undetermined Inferior infarct (cited on or before 24-MAR-2020) Abnormal ECG When compared with ECG of 22-MAY-2022 11:26, No significant change was found Referred By: Generic ED Physician Electronically Signed By:IRVING ORTEGA
[2022-06-10 14:36] VITALS: BP 105/53; BP 110/78; PULSE 100; PULSE 91; RESP 22; TEMP 37.1; O2SAT 2; O2SAT 95; BMI 47.5
[2022-06-10 15:07] LABS: MANUAL DIFF FLAG NO
[2022-06-10 15:09] LABS: Basophils Percent Auto 0.1 % (0-2); Eosinophils Percent Auto 0.4 % (0-4); Hematocrit 37.5 % (42.0-52.0); Hemoglobin 10.5 g/dl (14.0-18.0); Imm Gran Abs Auto 0.03 X10*3/uL (0.00-0.03); Imm Gran Pct Auto 0.3 % (0.0-0.4); Lymphocytes Absolute Auto 1.4 X10*3/uL (1.2-4.9); Lymphocytes Percent Auto 14.1 % (20-40); Mean Corpuscular Hemoglobin 21.6 pg (27.0-33.0); Mean Platelet Volume 9.8 fL (9.4-12.4); Monocytes Absolute Auto 0.6 X10*3/uL (0.1-1.2); Neutrophils Absolute Auto 7.8 x10*3/uL (2.0-8.3); Neutrophils Percent Auto 79.1 % (45-73); Platelet Count 356 X10*3/uL (160-400); Red Blood Count 4.87 X10*6/uL (4.60-5.80); Red Cell Distribution Width 18.3 % (11.0-16.0); White Blood Count 9.9 X10*3/uL (4.8-10.8)
--- NOTE | 2022-06-10 15:34 | PC.NURSE ---
Red scaling sking noted to BLE patient was able to stand pivot to stretcher from EMS MD kashmir at bedside will CTM.
[2022-06-10 15:38] LABS: Anion Gap 14 (12-20); Blood Urea Nitrogen 9 mg/dL (9-16); Calcium 8.3 mg/dL (8.4-10.2); Carbon Dioxide 32 mmol/L (22-29); Chloride 97 mmol/L (96-108); Creatinine Clr Calc Pharmacy 134.6; Estimated Glomerular Filt Rate > 60; Glucose Random 206 mg/dL (60-115); Potassium 3.8 mmol/L (3.3-5.1); Sodium 139 mmol/L (135-145)
--- NOTE | 2022-06-10 15:44 | ED_ITS ---
HPI - Altered Mental Status General Chief Complaint: Weakness Stated Complaint: LETHARGY 88% RA PER EMS Time Seen by Provider: 06/10/22 15:30 Source: patient and RN notes reviewed Mode of arrival: EMS Limitations: no limitations History of Present Illness HPI narrative: 61-year-old male who was sent to the emergency department by his visiting nurse for evaluation of altered mental status. I did review the ER nursing note. The visiting nurse was concerned that the patient was confused and had a low O2 saturation at home sent him into the emergency department for evaluation. 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 He states he does have home oxygen that he is supposed to wear as needed but he never puts it on. He remembers that the visiting nurse was asking questions any did answer several of them wrong but he did not think that he was sick or confused. He states that he was having difficulty eating and drinking over the weekend but this improved. He told me that he was recently hospitalized at [facility] for heart problem but cannot tell me what his diagnosis was and since that time he has had a visiting nurse checking in on him. He denied fever but he states he gets occasional chills. He of rhinorrhea. Denies sore throat, cough, chest pain, shortness of breath. He had nausea today with no vomiting. He denied diarrhea. Denied dark tarry or bloody stools he denied frequency, urgency or dysuria. He states that he is feeling fine. Related Data Home Medications Medication Instructions Recorded Confirmed atorvastatin 20 mg tablet 20 mg PO DAILY 03/23/20 05/23/22 furosemide 40 mg tablet 40 mg PO BID 03/23/20 05/23/22 hydroxyzine HCl 25 mg tablet 25 mg PO TID PRN anxiety 03/23/20 05/23/22 isosorbide mononitrate 60 mg 60 mg PO QAM 03/23/20 05/23/22 tablet,extended release 24 hr metformin 1,000 mg tablet 1,000 mg PO QAM 03/23/20 05/23/22 nystatin 100,000 unit/gram topical 100,000 unit topical BID PRN Rash 03/23/20 05/23/22 powder (Nyamyc) pantoprazole 40 mg tablet,delayed 40 mg PO DAILY 03/23/20 05/23/22 release phenytoin sodium extended 100 mg 300 mg PO DAILY@0730 03/23/20 05/23/22 capsule phenytoin sodium extended 100 mg 400 mg PO BEDTIME 03/23/20 05/23/22 capsule trazodone 50 mg tablet 100 mg PO BEDTIME 03/23/20 05/23/22 albuterol sulfate 90 mcg/actuation 2 puff inhalation Q4-6H PRN 04/13/22 05/23/22 aerosol inhaler Shortness Of Breath Or Wheezing apixaban 5 mg tablet (Eliquis) 5 mg PO BID 04/13/22 05/23/22 duloxetine 60 mg capsule,delayed 60 mg PO BID 04/13/22 05/23/22 release fluticasone propionate 50 1 spray intranasal BID 04/13/22 05/23/22 mcg/actuation nasal spray,suspension gabapentin 400 mg capsule 400 mg PO 5XD 04/13/22 05/23/22 lorazepam 2 mg tablet 4 mg PO TID PRN Anxiety 04/13/22 05/23/22 oxycodone 5 mg tablet 5 mg PO BID PRN severe pain 04/13/22 05/23/22 quetiapine 100 mg tablet 100 mg PO BEDTIME PRN insomnia 04/13/22 05/23/22 Previous Rx's Medication Instructions Recorded metoprolol succinate 25 mg 75 mg PO BID 30 days #180 tabs 04/17/22 tablet,extended release 24 hr Allergies Allergy/AdvReac Type Severity Reaction Status Date / Time aspirin Allergy Severe OCCASIONAL Verified 04/08/22 14:18 RASH / TONGUE SWELLING, Hives, throat swellig bee pollen [BEE STINGS] Allergy Severe ANAPHYLAXIS Verified 04/08/22 14:18 Penicillins Allergy Severe ANAPHYLAXIS Verified 04/08/22 14:18 povidone-iodine [Betadine] Allergy Severe Redness of Verified 04/08/22 14:18 Skin soap [Betadine] Allergy Severe Redness of Verified 04/08/22 14:18 Skin spider venom [SPIDER BITES] Allergy Severe Hives Verified 04/08/22 14:18 amoxicillin Allergy Intermediate Hives Verified 04/08/22 14:18 clindamycin Allergy Mild RASH Verified 04/08/22 14:18 latex [Latex] Allergy Mild RASH Verified 04/08/22 14:18 bupropion [From WELLBUTRIN] AdvReac Severe SEIZURES Verified 04/08/22 14:18 adhesive tape AdvReac Mild Rash Verified 04/14/22 15:55 Review of Systems Review of Systems: Yes all other systems are reviewed and are negative [facility] Past Medical History [facility] Narrative: Social history: Patient states he lives alone. He denies tobacco, alcohol and drug use. Medical History Anxiety Arthritis Asthma Atrial fibrillation with rapid ventricular response Coronary artery disease Diabetes mellitus, type 2 Fall Hypertension Multifactorial gait disorder Obesity PTSD (post-traumatic stress disorder) TIA (transient ischemic attack) Transient ischemic attack (TIA) Social History Social History Household Members: None Housing: Apartment Do you presently have visiting nurse or other home services: Yes Alcohol intake: former Patient Tobacco Use Status: Never used Tobacco Smoked in Last 30 Days: No Second Hand Smoke Exposure: No Advance Directives: Yes Advance Directives on File: Yes Advance Directives Date on File: 04/14/22 service: No Current occupational status: disabled Physical Exam ED Vital Signs: Vital Signs - 24 hr 06/10/22 14:36 Temperature 98.7 F Pulse Rate 91 Respiratory Rate 22 H Blood Pressure 105/53 L Pulse Oximetry 2 L Oxygen Delivery Method Nasal Cannula BMI result Body Mass Index 47.5 Const Other: Awake, alert, male patient, oriented to person place, is able to recount details of why he is here in the emergency department, denies being ill in any way. Patient has an elevated BMI of 47.5 [facility] Head: Yes normal to inspection, Yes normocephalic and Yes atraumatic Ears: external ears normal General nose exam: Normal external nose present Face and sinus: Yes normal facial exam Mouth: Normal oral and palatal mucosa present Throat: Yes posterior oropharynx normal Eyes General: appearance normal, both eyes and all related structures Pupils: Equal, round and reactive pupils present Neck Neck: Yes normal visual inspection, Yes no lymphadenopathy, Yes trachea midline and Yes supple Chest Chest palpation & inspection: normal inspection of the chest and normal palpation of entire chest wall Resp Effort & Inspection: normal respiratory effort and able to speak in complete s entences Auscultation: clear to auscultation bilaterally Cardio Rate: regular rate Rhythm: regular rhythm Heart sounds: S1 normal heart sound present, S2 normal heart sound present and no murmurs GI Inspection: Yes normal to inspection Palpation (GI): Soft to palpation, nontender and no guarding Auscultation: normal bowel sounds General: Yes no CVA tenderness Back/Spine/Pelvis Back: no CVA tenderness Skin Other: External skin changes on the patient's arms and right diaz area Neuro Cranial nerves: Yes CN's II-XII intact bilaterally and Yes Equal, round and reactive pupils present Cognition (Neuro): normal cognition Motor exam (neuro): 5/5 motor strength present throughout Extrem General: Yes normal to inspection Psych Appearance: grossly normal Speech and movement: Normal speech and movement present Affect: normal affect Attitude: cooperative Thought process: Normal thought process present Thought content: Normal thought content present Medical Decision Making Medical Decision Making [facility] Narrative: 61-year-old male sent to emergency department by his visiting nurse for confusion and hypoxia. The patient is able recount details of why he is here, he states that he does have low oxygen levels but states that he only wears his oxygen when he thinks he needs it. Patient denied having any symptoms at the time of my evaluation. Vital signs did reveal elevated respiratory 22 with a blood pressure of 105/53. On 2 L via nasal cannula the patient's O2 saturation is 98%. His exam is otherwise unremarkable. I ordered a CBC, BMP, EKG. 1554: Laboratory evaluation interpretation by me as follows: CBC was normal. BMP revealed an elevated glucose of 206, CO2 is elevated at 32 this is chronic. This time I do not have a clear cause for the patient's altered mental status however it may be secondary to hypoxia, I did instruct the patient to wear his oxygen for the next 24 hours and then as needed for shortness of breath. Patient will be discharged home. The patient is in agreement with this plan. Differential Diagnosis Differential diagnosis includes but is not limited to hypoxia, pneumonia, toxic metabolic syndrome Lab Data [facility] Lab Attestation statement: I reviewed the patient's lab results. Please see the [facility] for my interpretation laboratory findings Result Diagrams: 06/10/22 15:02 06/10/22 15:02 Labs: Lab Results 06/10/22 06/10/22 Range/Units 15:02 15:02 WBC 9.9 (4.8-10.8) X10*3/uL RBC 4.87 (4.60-5.80) X10*6/uL Hgb 10.5 L (14.0-18.0) g/dl Hct 37.5 L (42.0-52.0) % MCV 77.0 L (80.0-98.0) fL MCH 21.6 L (27.0-33.0) pg MCHC 28.0 L (31.0-36.0) g/dl RDW 18.3 H (11.0-16.0) % Plt Count 356 (160-400) X10*3/uL MPV 9.8 (9.4-12.4) fL Immature Gran % (Auto) 0.3 (0.0-0.4) % Neut % (Auto) 79.1 H (45-73) % Lymph % (Auto) 14.1 L (20-40) % [place] % (Auto) 6.0 (2-11) % Eos % (Auto) 0.4 (0-4) % Baso % (Auto) 0.1 (0-2) % Lymph # (Auto) 1.4 (1.2-4.9) X10*3/uL [place] # (Auto) 0.6 (0.1-1.2) X10*3/uL Eos # (Auto) 0.0 (0.0-0.4) X10*3/uL Baso # (Auto) 0.0 (0.0-0.2) X10*3/uL Abs Immat Gran (auto) 0.03 (0.00-0.03) X10*3/uL Absolute Neuts (auto) 7.8 (2.0-8.3) x10*3/uL Absolute Nucleated RBC 0.000 (0.0-0.012) X10*3/uL Nucleated RBC % (auto) 0.0 (0.0-0.2) /100WBC Sodium 139 (135-145) mmol/L Potassium 3.8 (3.3-5.1) mmol/L Chloride 97 (96-108) mmol/L Carbon Dioxide 32 H (22-29) mmol/L Anion Gap 14 (12-20) BUN 9 (9-16) mg/dL Creatinine 0.95 (0.5-1.4) mg/dL Estim Creat Clear Calc 134.6 Estimated GFR > 60 Random Glucose 206 H (60-115) mg/dL Calcium 8.3 L (8.4-10.2) mg/dL Independent Interpretation I performed an independent interpretation of an: EKG Interpretation: My independent interpretation of the patient's EKG done at 1445: Atrial fibrillation with a rapid ventricular rate of 114, prolonged QTC of 556 milliseconds consistent with a right bundle-branch block, Q-waves in 2, 3 and AVF, no ST segment elevation, no ST segment depression, no significant T-wave abnormalities. Compared to EKG dated 05/22/2022 atrial fibrillation is old, Q- waves in 2 3 and after old, right bundle-branch block is old. Discharge Plan Discharge Clinical Impression: Acute alteration in mental status, Hypoxic Patient Disposition: Home, Self-Care Additional Instructions: Your blood work was unremarkable Your EKG was unchanged from her baseline, you have atrial fibrillation. At this time I suspect that your confusion may be caused by a low oxygen level. You should wear your oxygen more frequently at home especially over the next 24 hours. Follow-up with your doctor in 2 days. Please return to the emergency department if your symptoms get worse or if you develop any symptoms that are concerning to you. Prescriptions: No Action furosemide 40 mg tablet 40 mg PO BID atorvastatin 20 mg tablet 20 mg PO DAILY trazodone 50 mg tablet 100 mg PO BEDTIME phenytoin sodium extended 100 mg capsule 300 mg PO DAILY@0730 isosorbide mononitrate 60 mg tablet extended release 24 hr 60 mg PO QAM pantoprazole 40 mg tablet,delayed release (DR/EC) 40 mg PO DAILY metformin 1,000 mg tablet 1,000 mg PO QAM hydroxyzine HCl 25 mg tablet 25 mg PO TID PRN (Reason: anxiety) nystatin [Nyamyc] 100,000 unit/gram powder 100,000 unit topical BID PRN (Reason: Rash) phenytoin sodium extended 100 mg capsule 400 mg PO BEDTIME gabapentin 400 mg capsule 400 mg PO 5XD Rx Instructions: hold for sedation quetiapine 100 mg tablet 100 mg PO BEDTIME MDD 2 PRN (Reason: insomnia) Rx Instructions: MAY REPEAT ONCE oxycodone 5 mg tablet 5 mg PO BID PRN (Reason: severe pain) duloxetine 60 mg capsule,delayed release(DR/EC) 60 mg PO BID Eliquis 5 mg tablet 5 mg PO BID lorazepam 2 mg tablet 4 mg PO TID PRN (Reason: Anxiety) Label Comments: PATIENT STATES PROVIDER TEMPORARILY INCREASED HIS LORAZEPAM DOSE FROM 2 MG TID UP TO 4 MG TID LAST WEEK albuterol sulfate 90 mcg/actuation Hfa Aerosol Inhaler 2 puff INHALATION Q4-6H PRN (Reason: Shortness Of Breath Or Wheezing) fluticasone propionate 50 mcg/actuation Roy,Suspension 1 spray INTRANASAL BID Rx Instructions: administer into each nostril metoprolol succinate 25 mg Tablet Extended Release 24 Hr 75 mg PO BID 30 Days Qty: 180 1RF Protocol: Hold for SBP/HR < HOLD for SBP < : 90 HOLD for HR < : 60
[2022-06-10 16:13] VITALS: BP 112/71; PULSE 107; RESP 22; O2SAT 93
== END 2022-06-10 16:26 | disposition home or self-care (01) ==
PROVIDERS: Emergency Provider Emergency Medicine Emergency Medical Services; PCP Hospitalist
DX: R41.82 Altered mental status, unspecified (principal); R09.02 Hypoxemia; Z79.899 Other long term (current) drug therapy
CPT/HCPCS: 36415; 80048; 85025; 93005; 99283; 99284

== ENCOUNTER 2022-06-15 14:05 | Inpatient (IN) | payer OTHER, SELFPAY ==
[2022-06-15] VITALS (13 sets, daily range): BP systolic 83–121; BP diastolic 44–76; PULSE 96–130; RESP 16–28; TEMP 36.6–37.1; O2SAT 91–98; BMI 46.2
--- NOTE | 2022-06-15 | ECG_ITS ---
Test Reason : tachycardia Blood Pressure : / mmHG Vent. Rate : 113 BPM Atrial Rate : 000 BPM P-R Int : 000 ms QRS Dur : 160 ms QT Int : 354 ms P-R-T Axes : 000 -89 040 degrees QTc Int : 485 ms Atrial fibrillation with rapid ventricular response Left axis deviation Right bundle branch block Inferior infarct (cited on or before 24-MAR-2020) Abnormal ECG When compared with ECG of 10-JUN-2022 14:45, No significant change was found Referred By: Marcus Mehta Electronically Signed By:Jasper Wagner
--- NOTE | ~2022-06-15 | CT_ITS ---
EXAMINATION: CT ABDOMEN AND PELVIS WITH CONTRAST CLINICAL INFORMATION: Left-sided abdominal pain with question of diverticulitis COMPARISON: CT abdomen pelvis 12/04/2018 TECHNIQUE: Multidetector volumetric images were obtained from the superior aspect of the liver through the pubic symphysis following administration 100 mL of Omnipaque 350 intravenous contrast. Sagittal and coronal reformatted images were obtained on the technologist's workstation. Oral contrast: No This CT examination was performed using dose optimization techniques as appropriate, variously including the following: *Automated exposure control *Adjustment of mA and/or kV according to patient size (this includes techniques or standardized protocols for targeted exams where dose is matched to indication/reason for exam; i.e. extremities or head) *Use of iterative reconstruction technique DLP: 1423 mGy-cm FINDINGS: LUNG BASES: The visualized lung bases are unremarkable. LIVER, GALLBLADDER, AND BILIARY TREE: The liver is enlarged measuring 19.2 cm in cephalocaudad dimension. No focal hepatic lesion or biliary ductal dilatation is present. The gallbladder contains layering small gallstones but otherwise is unremarkable with no evidence of gallbladder wall thickening, or obvious pericholecystic inflammatory changes. PANCREAS: Unremarkable. SPLEEN: The spleen is enlarged measuring 17.8 cm in greatest transverse dimension. ADRENAL GLANDS: Unremarkable. KIDNEYS AND URETERS: The kidneys are normal in size, shape, and attenuation. No hydronephrosis, hydroureter, or calculi seen. No perinephric stranding. BLADDER: Unremarkable. GASTROINTESTINAL TRACT: The small and large bowel are unremarkable. No significant colonic diverticular disease is present. The appendix is unremarkable. ABDOMINAL WALL: No significant hernia is appreciated. LYMPH NODES: No retroperitoneal lymphadenopathy. VASCULAR: Unremarkable. PELVIC VISCERA: The prostate and seminal vesicles are unremarkable. OSSEOUS STRUCTURES: There is a compression fracture of T11. Mild degenerative changes are noted throughout the spine. No bony destructive lesions. CT/CT abdomen pelvis w IV con IMPRESSION: 1. A cause for the patient's acute left-sided abdominal pain has not been found. 2. Incidental note made of hepatosplenomegaly, cholelithiasis and compression fracture T11. Fleischner guidelines were followed.
--- NOTE | ~2022-06-15 | XR_ITS ---
EXAMINATION: XR CHEST CLINICAL INFORMATION: Weakness, fever, possible pneumonia. COMPARISON: Chest radiographs 05/22/2022, 04/13/2022 TECHNIQUE: Portable upright AP view of the chest was obtained. FINDINGS: Lungs are grossly clear with no focal airspace consolidation or groundglass opacity or effusion. The cardiac and hilar and mediastinal contours and bony structures are similar to prior study. XR/XR chest 1V IMPRESSION: Unremarkable examination.
--- NOTE | ~2022-06-15 | XR_ITS ---
EXAMINATION: XR CHEST CLINICAL INFORMATION: Shortness of breath COMPARISON: 06/15/2022 TECHNIQUE: Frontal view of the chest was obtained. FINDINGS: Large body habitus. Lungs are well expanded. No consolidation or pleural effusion. Cardiomediastinal silhouette has normal size and contour. No acute skeletal findings. XR/XR chest 1V IMPRESSION: No acute pulmonary disease.
[2022-06-15 14:24] LABS: Glucose, Whole Blood 303 mg/dL (60-115)
--- NOTE | 2022-06-15 14:36 | ED.WEAKNESS ---
HPI - Weakness General Chief complaint: Dizziness Stated complaint: N/V/D PER EMS Time Seen by Provider: 06/15/22 14:16 Source: patient Mode of arrival: EMS Limitations: no limitations History of Present Illness HPI Narrative: 61-year-old male who presents emergency department for evaluation abdominal pain, weakness, feeling hot and cold, shaking chills with sweats, left-sided abdominal pain, loss of appetite poor fluid intake. Patient states that he has been feeling sick since Tuesday (5 days prior to evaluation). He states that he started out with left-sided abdominal pain which she describes as an intermittent, sharp pain which is 8/10 at its worst. He states that he lost his appetite. He states that he was feeling weak . He felt hot and cold but did not take his temperature at home. He also had shaking chills. He states that he had a cough which was occasionally productive. He denied chest pain, shortness of breath dyspnea on exertion. He has had nausea with dry heaves. He states that today he developed 2 large loose diarrheal stools with no blood in the stools. He has had myalgias and arthralgias. He states that someone came to his house to interview him for elderly housing/care. He states that he got up to walk to the door he felt very weak, lightheaded and broke a sweat therefore an ambulance was called and he was brought to the emergency department for evaluation. Related Data Home Medications Medication Instructions Recorded Confirmed atorvastatin 20 mg tablet 20 mg PO DAILY 03/23/20 05/23/22 furosemide 40 mg tablet 40 mg PO BID 03/23/20 05/23/22 hydroxyzine HCl 25 mg tablet 25 mg PO TID PRN anxiety 03/23/20 05/23/22 isosorbide mononitrate 60 mg 60 mg PO QAM 03/23/20 05/23/22 tablet,extended release 24 hr metformin 1,000 mg tablet 1,000 mg PO QAM 03/23/20 05/23/22 nystatin 100,000 unit/gram topical 100,000 unit topical BID PRN Rash 03/23/20 05/23/22 powder ([facility]) pantoprazole 40 mg tablet,delayed 40 mg PO DAILY 03/23/20 05/23/22 release phenytoin sodium extended 100 mg 300 mg PO DAILY@0730 03/23/20 05/23/22 capsule phenytoin sodium extended 100 mg 400 mg PO BEDTIME 03/23/20 05/23/22 capsule trazodone 50 mg tablet 100 mg PO BEDTIME 03/23/20 05/23/22 albuterol sulfate 90 mcg/actuation 2 puff inhalation Q4-6H PRN 04/13/22 05/23/22 aerosol inhaler Shortness Of Breath Or Wheezing apixaban 5 mg tablet (Eliquis) 5 mg PO BID 04/13/22 05/23/22 duloxetine 60 mg capsule,delayed 60 mg PO BID 04/13/22 05/23/22 release fluticasone propionate 50 1 spray intranasal BID 04/13/22 05/23/22 mcg/actuation nasal spray,suspension gabapentin 400 mg capsule 400 mg PO 5XD 04/13/22 05/23/22 lorazepam 2 mg tablet 4 mg PO TID PRN Anxiety 04/13/22 05/23/22 oxycodone 5 mg tablet 5 mg PO BID PRN severe pain 04/13/22 05/23/22 quetiapine 100 mg tablet 100 mg PO BEDTIME PRN insomnia 04/13/22 05/23/22 Previous Rx's Medication Instructions Recorded metoprolol succinate 25 mg 75 mg PO BID 30 days #180 tabs 04/17/22 tablet,extended release 24 hr Allergies Allergy/AdvReac Type Severity Reaction Status Date / Time aspirin Allergy Severe OCCASIONAL Verified 04/08/22 14:18 RASH / TONGUE SWELLING, Hives, throat swellig bee pollen [BEE STINGS] Allergy Severe ANAPHYLAXIS Verified 04/08/22 14:18 Penicillins Allergy Severe ANAPHYLAXIS Verified 04/08/22 14:18 povidone-iodine [Betadine] Allergy Severe Redness of Verified 04/08/22 14:18 Skin soap [Betadine] Allergy Severe Redness of Verified 04/08/22 14:18 Skin spider venom [SPIDER BITES] Allergy Severe Hives Verified 04/08/22 14:18 amoxicillin Allergy Intermediate Hives Verified 04/08/22 14:18 clindamycin Allergy Mild RASH Verified 04/08/22 14:18 latex [Latex] Allergy Mild RASH Verified 04/08/22 14:18 bupropion [From WELLBUTRIN] AdvReac Severe SEIZURES Verified 04/08/22 14:18 adhesive tape AdvReac Mild Rash Verified 04/14/22 15:55 Review of Systems Review of Systems: Yes all other systems are reviewed and are negative [facility] Past Medical History [facility] Narrative: Social history: He denies tobacco, alcohol and drug use. Medical History Anxiety Arthritis Asthma Atrial fibrillation with rapid ventricular response Coronary artery disease Diabetes mellitus, type 2 Fall Hypertension Multifactorial gait disorder Obesity PTSD (post-traumatic stress disorder) TIA (transient ischemic attack) Transient ischemic attack (TIA) Social History Social History Household Members: None Housing: Apartment Do you presently have visiting nurse or other home services: Yes Alcohol intake: former Patient Tobacco Use Status: Never used Tobacco Second Hand Smoke Exposure: No Advance Directives: Yes Advance Directives on File: Yes Advance Directives Date on File: 04/14/22 service: No Current occupational status: disabled Physical Exam Vital Signs: Vital Signs: Last Vital Signs Temp 97.9 F 06/15/22 15:59 Pulse 106 H 06/15/22 17:03 Resp 24 H 06/15/22 17:03 BP 107/54 L 06/15/22 17:03 Pulse Ox 97 06/15/22 17:03 O2 Del Method 06/15/22 17:03 O2 Flow Rate 2 06/15/22 17:03 Oxygen Flow Rate 2 06/15/22 14:14 BMI result Body Mass Index 46.2 Const: Other: Awake, alert, male patient, very pleasant and cooperative, answers all questions appropriately, does not appear to be in distress HEENT: Head: Yes normal to inspection, Yes normocephalic and Yes atraumatic Ears: external ears normal General nose exam: Normal external nose present Face and sinus: Yes normal facial exam Mouth: Normal oral and palatal mucosa present Throat: Yes posterior oropharynx normal Eyes: General: appearance normal, both eyes and all related structures Pupils: Equal, round and reactive pupils present Neck: Neck: Yes normal visual inspection, Yes no lymphadenopathy, Yes trachea midline and Yes supple Chest: Chest palpation & inspection: normal inspection of the chest and normal palpation of entire chest wall Resp: Effort & Inspection: normal respiratory effort and able to speak in complete sentences Auscultation: clear to auscultation bilaterally Cardio: Rate: regular rate Rhythm: regular rhythm Heart sounds: S1 normal heart sound present, S2 normal heart sound present and no murmurs GI: Other: Abdomen is obese, patient has moderate left-sided tenderness, normoactive bowel sounds, no rebound : General: Yes no CVA tenderness Back/Spine/Pelvis: Back: no CVA tenderness Skin: General skin exam: no rashes or lesions noted Neuro: Cranial nerves: Yes CN's II-XII intact bilaterally and Yes Equal, round and reactive pupils present Cognition (Neuro): normal cognition Motor exam (neuro): 5/5 motor strength present throughout Extrem: General: Yes normal to inspection Psych: Appearance: grossly normal Speech and movement: Normal speech and movement present Affect: normal affect Attitude: cooperative Thought process: Normal thought process present Thought content: Normal thought content present Medications Administered Discontinued Medications Generic Name Dose Route Start Last Admin Trade Name Lonnieq PRN Reason Stop Dose Admin Fentanyl 50 mcg 06/15/22 16:49 06/15/22 17:04 Fentanyl Citrate/Pf 100 Mcg/2 Ml Vial IVPUSH 06/15/22 16:50 50 mcg ONCE STA Administration Protocol Sodium Chloride 2,535 mls @ 2,535 mls/hr 06/15/22 14:37 06/15/22 17:05 Ns IV 06/15/22 15:36 Infused .Q1H STA Infusion Levofloxacin 750 mg in 150 mls @ 100 mls/hr 06/15/22 14:50 06/15/22 15:52 Levaquin IV 06/15/22 16:19 100 mls/hr ONCE ONE Administration Iohexol 100 ml 06/15/22 18:37 06/15/22 18:38 Iohexol 350 Mg/Ml 100 Ml Infus..Btl IV 06/15/22 18:38 100 ml ONCE ONE Administration Medical Decision Making Medical Decision Making [facility] Narrative: 1454: 61-year-old male who presents emergency department for evaluation abdominal pain x5 days, loss of appetite, subjective fever and chills, diaphoresis, nonproductive cough, nausea with dry heaves and diarrhea that started today. Patient is also feeling weak with myalgias and arthralgias. Patient's vital signs revealed hypotension with a blood pressure of 83/55, elevated pulse of 114 and elevated respiratory rate of 25. The patient meets SIRS criteria and he was may code sepsis. The patient has an elevated BMI of 46.2 therefore his fluid bolus of normal saline was based on his ideal body weight in the normal saline fluid boluses 2.5 L. given the patient's lower abdominal pain and concerned that he might have colitis versus diverticulitis and he was treated with Levaquin 750 mg IV. Patient's pain was treated with fentanyl 50 mcg IV. 2019: My interpretation the patient's laboratory data is as follows: WBC normal 5000, anemia with an H&H of 10.7 and 36.9-this is chronic. Sodium low 132, chloride low 94, glucose elevated 332. Lactic acid elevated 3.7. High sensitive troponin I detectable at 22.0 but not elevated. Lipase normal. Urinalysis positive for glucose only. RSV and influenza negative. COVID-19 positive. Patient's chest x-ray was unremarkable, CT scan of the patient's abdomen pelvis IV contrast did not explain his pain. Initially I was concerned the patient may have diverticulitis however given his negative workup, I suspect that the patient's symptoms are consistent with COVID-19 infection. He has no evidence for pneumonia at this time. The patient was most likely very volume depleted and dehydrated, I suspect that his elevated lactic acid was secondary to starvation ketosis since he was not able to eat for several days. Given the patient's persistent weakness, I believe that he needs to be admitted for further management. I will discuss this with the covering hospitalist. 2044: I did discuss the patient's presentation with the covering hospitalist. After this discussion, I did talk to the patient again and he told me that he is supposed to wear oxygen continually at home but is not compliant with this. States that sometimes his oxygen level dropped down to 84%. I did turn off the patient's oxygen and we will monitor his O2 saturation to see if he is hypoxic. The hospitalist did accept the patient on to the hospital service for further management. Differential Diagnosis Differential diagnosis includes was not limited to COVID-19, influenza, RSV, pneumonia, diverticulitis, colitis, pancreatitis, pyelonephritis, urinary tract infection, dehydration, myocardial infarction, Lab Data Please see the MDM Section for my interpretation the patient's lab 06/15/22 14:53 06/15/22 14:53 Labs: Lab Results 06/15/22 06/15/22 06/15/22 Range/Units 14:18 14:53 14:53 WBC 5.0 (4.8-10.8) X10*3/uL RBC 4.89 (4.60-5.80) X10*6/uL Hgb 10.7 L (14.0-18.0) g/dl Hct 36.9 L (42.0-52.0) % MCV 75.5 L (80.0-98.0) fL MCH 21.9 L (27.0-33.0) pg MCHC 29.0 L (31.0-36.0) g/dl RDW 18.3 H (11.0-16.0) % Plt Count 271 (160-400) X10*3/uL MPV 10.4 (9.4-12.4) fL Immature Gran % (Auto) 0.4 (0.0-0.4) % Neut % (Auto) 81.5 H (45-73) % Lymph % (Auto) 7.8 L (20-40) % Wallace % (Auto) 10.3 (2-11) % Eos % (Auto) 0.0 (0-4) % Baso % (Auto) 0.0 (0-2) % Lymph # (Auto) 0.4 L (1.2-4.9) X10*3/uL Wallace # (Auto) 0.5 (0.1-1.2) X10*3/uL Eos # (Auto) 0.0 (0.0-0.4) X10*3/uL Baso # (Auto) 0.0 (0.0-0.2) X10*3/uL Abs Immat Gran (auto) 0.02 (0.00-0.03) X10*3/uL Absolute Neuts (auto) 4.1 (2.0-8.3) x10*3/uL Absolute Nucleated RBC 0.000 (0.0-0.012) X10*3/uL Nucleated RBC % (auto) 0.0 (0.0-0.2) /100WBC PT (10.0-13.1) SEC INR (0.9-1.1) APTT (26.0-36.4) SEC Sodium 132 L (135-145) mmol/L Potassium 4.2 (3.3-5.1) mmol/L Chloride 94 L (96-108) mmol/L Carbon Dioxide 26 (22-29) mmol/L Anion Gap 16 (12-20) BUN 9 (9-16) mg/dL Creatinine 1.03 (0.5-1.4) mg/dL Estim Creat Clear Calc 122.3 Estimated GFR > 60 POC Glucose 303 H (60-115) mg/dL Random Glucose 332 H (60-115) mg/dL Lactic Acid (0.5-2.0) mmol/L Lactic Acid F/U @ 2Hr (0.5-2.0) mmol/L Calcium 8.6 (8.4-10.2) mg/dL Total Bilirubin 0.4 (0.0-1.0) mg/dL AST 18 (5-37) U/L ALT 8 (0-40) U/L Alkaline Phosphatase 115 (39-117) U/L Troponin I High Sens (<3.5-35.0) ng/L Total Protein 6.8 (6.5-8.0) g/dL Albumin 3.6 (3.5-5.0) g/dL Lipase (8-78) U/L Urine Color Urine Appearance Urine pH (5.0-9.0) Ur Specific [place] (1.005-1.025) Urine Protein (Neg-Trace) mg/dL Urine Glucose (UA) (Negative) mg/dL Urine Ketones (Negative) mg/dL Urine Blood (Negative) Urine Nitrite (Negative) Ur Leukocyte Esterase (Negative) Influenza Type A (PCR) (Negative) Influenza Type B (PCR) (Negative) RSV RNA Qual (PCR) (Negative) SARS-CoV-2 RNA (RT-PCR) (Negative) 06/15/22 06/15/22 06/15/22 Range/Units 14:53 14:53 14:53 WBC (4.8-10.8) X10*3/uL RBC (4.60-5.80) X10*6/uL Hgb (14.0-18.0) g/dl Hct (42.0-52.0) % MCV (80.0-98.0) fL MCH (27.0-33.0) pg MCHC (31.0-36.0) g/dl RDW (11.0-16.0) % Plt Count (160-400) X10*3/uL MPV (9.4-12.4) fL Immature Gran % (Auto) (0.0-0.4) % Neut % (Auto) (45-73) % Lymph % (Auto) (20-40) % Wallace % (Auto) (2-11) % Eos % (Auto) (0-4) % Baso % (Auto) (0-2) % Lymph # (Auto) (1.2-4.9) X10*3/uL [place] # (Auto) (0.1-1.2) X10*3/uL Eos # (Auto) (0.0-0.4) X10*3/uL Baso # (Auto) (0.0-0.2) X10*3/uL Abs Immat Gran (auto) (0.00-0.03) X10*3/uL Absolute Neuts (auto) (2.0-8.3) x10*3/uL Absolute Nucleated RBC (0.0-0.012) X10*3/uL Nucleated RBC % (auto) (0.0-0.2) /100WBC PT 16.5 H (10.0-13.1) SEC INR 1.4 H (0.9-1.1) APTT 28.3 (26.0-36.4) SEC Sodium (135-145) mmol/L Potassium (3.3-5.1) mmol/L Chloride (96-108) mmol/L Carbon Dioxide (22-29) mmol/L Anion Gap (12-20) BUN (9-16) mg/dL Creatinine (0.5-1.4) mg/dL Estim Creat Clear Calc Estimated GFR POC Glucose (60-115) mg/dL Random Glucose (60-115) mg/dL Lactic Acid 3.7 H* (0.5-2.0) mmol/L Lactic Acid F/U @ 2Hr (0.5-2.0) mmol/L Calcium (8.4-10.2) mg/dL Total Bilirubin (0.0-1.0) mg/dL AST (5-37) U/L ALT (0-40) U/L Alkaline Phosphatase (39-117) U/L Troponin I High Sens 22.0 D (<3.5-35.0) ng/L Total Protein (6.5-8.0) g/dL Albumin (3.5-5.0) g/dL Lipase (8-78) U/L Urine Color Urine Appearance Urine pH (5.0-9.0) Ur Specific [place] (1.005-1.025) Urine Protein (Neg-Trace) mg/dL Urine Glucose (UA) (Negative) mg/dL Urine Ketones (Negative) mg/dL Urine Blood (Negative) Urine Nitrite (Negative) Ur Leukocyte Esterase (Negative) Influenza Type A (PCR) (Negative) Influenza Type B (PCR) (Negative) RSV RNA Qual (PCR) (Negative) SARS-CoV-2 RNA (RT-PCR) (Negative) 06/15/22 06/15/22 06/15/22 Range/Units 14:53 14:53 16:26 WBC (4.8-10.8) X10*3/uL RBC (4.60-5.80) X10*6/uL Hgb (14.0-18.0) g/dl Hct (42.0-52.0) % MCV (80.0-98.0) fL MCH (27.0-33.0) pg MCHC (31.0-36.0) g/dl RDW (11.0-16.0) % Plt Count (160-400) X10*3/uL MPV (9.4-12.4) fL Immature Gran % (Auto) (0.0-0.4) % Neut % (Auto) (45-73) % Lymph % (Auto) (20-40) % Wallace % (Auto) (2-11) % Eos % (Auto) (0-4) % Baso % (Auto) (0-2) % Lymph # (Auto) (1.2-4.9) X10*3/uL [place] # (Auto) (0.1-1.2) X10*3/uL Eos # (Auto) (0.0-0.4) X10*3/uL Baso # (Auto) (0.0-0.2) X10*3/uL Abs Immat Gran (auto) (0.00-0.03) X10*3/uL Absolute Neuts (auto) (2.0-8.3) x10*3/uL Absolute Nucleated RBC (0.0-0.012) X10*3/uL Nucleated RBC % (auto) (0.0-0.2) /100WBC PT (10.0-13.1) SEC INR (0.9-1.1) APTT (26.0-36.4) SEC Sodium (135-145) mmol/L Potassium (3.3-5.1) mmol/L Chloride (96-108) mmol/L Carbon Dioxide (22-29) mmol/L Anion Gap (12-20) BUN (9-16) mg/dL Creatinine (0.5-1.4) mg/dL Estim Creat Clear Calc Estimated GFR POC Glucose (60-115) mg/dL Random Glucose (60-115) mg/dL Lactic Acid (0.5-2.0) mmol/L Lactic Acid F/U @ 2Hr (0.5-2.0) mmol/L Calcium (8.4-10.2) mg/dL Total Bilirubin (0.0-1.0) mg/dL AST (5-37) U/L ALT (0-40) U/L Alkaline Phosphatase (39-117) U/L Troponin I High Sens (<3.5-35.0) ng/L Total Protein (6.5-8.0) g/dL Albumin (3.5-5.0) g/dL Lipase 11 (8-78) U/L Urine Color Yellow Urine Appearance Clear Urine pH 6.0 (5.0-9.0) Ur Specific [place] 1.010 (1.005-1.025) Urine Protein Negative (Neg-Trace) mg/dL Urine Glucose (UA) 250 H (Negative) mg/dL Urine Ketones Negative (Negative) mg/dL Urine Blood Negative (Negative) Urine Nitrite Negative (Negative) Ur Leukocyte Esterase Negative (Negative) Influenza Type A (PCR) NEGATIVE (Negative) Influenza Type B (PCR) NEGATIVE (Negative) RSV RNA Qual (PCR) NEGATIVE (Negative) SARS-CoV-2 RNA (RT-PCR) POSITIVE A (Negative) 06/15/22 06/15/22 Range/Units 17:03 19:30 WBC (4.8-10.8) X10*3/uL RBC (4.60-5.80) X10*6/uL Hgb (14.0-18.0) g/dl Hct (42.0-52.0) % MCV (80.0-98.0) fL MCH (27.0-33.0) pg MCHC (31.0-36.0) g/dl RDW (11.0-16.0) % Plt Count (160-400) X10*3/uL MPV (9.4-12.4) fL Immature Gran % (Auto) (0.0-0.4) % Neut % (Auto) (45-73) % Lymph % (Auto) (20-40) % [place] % (Auto) (2-11) % Eos % (Auto) (0-4) % Baso % (Auto) (0-2) % Lymph # (Auto) (1.2-4.9) X10*3/uL [place] # (Auto) (0.1-1.2) X10*3/uL Eos # (Auto) (0.0-0.4) X10*3/uL Baso # (Auto) (0.0-0.2) X10*3/uL Abs Immat Gran (auto) (0.00-0.03) X10*3/uL Absolute Neuts (auto) (2.0-8.3) x10*3/uL Absolute Nucleated RBC (0.0-0.012) X10*3/uL Nucleated RBC % (auto) (0.0-0.2) /100WBC PT (10.0-13.1) SEC INR (0.9-1.1) APTT (26.0-36.4) SEC Sodium (135-145) mmol/L Potassium (3.3-5.1) mmol/L Chloride (96-108) mmol/L Carbon Dioxide (22-29) mmol/L Anion Gap (12-20) BUN (9-16) mg/dL Creatinine (0.5-1.4) mg/dL Estim Creat Clear Calc Estimated GFR POC Glucose (60-115) mg/dL Random Glucose (60-115) mg/dL Lactic Acid 2.5 H* (0.5-2.0) mmol/L Lactic Acid F/U @ 2Hr 1.8 (0.5-2.0) mmol/L Calcium (8.4-10.2) mg/dL Total Bilirubin (0.0-1.0) mg/dL AST (5-37) U/L ALT (0-40) U/L Alkaline Phosphatase (39-117) U/L Troponin I High Sens (<3.5-35.0) ng/L Total Protein (6.5-8.0) g/dL Albumin (3.5-5.0) g/dL Lipase (8-78) U/L Urine Color Urine Appearance Urine pH (5.0-9.0) Ur Specific [place] (1.005-1.025) Urine Protein (Neg-Trace) mg/dL Urine Glucose (UA) (Negative) mg/dL Urine Ketones (Negative) mg/dL Urine Blood (Negative) Urine Nitrite (Negative) Ur Leukocyte Esterase (Negative) Influenza Type A (PCR) (Negative) Influenza Type B (PCR) (Negative) RSV RNA Qual (PCR) (Negative) SARS-CoV-2 RNA (RT-PCR) (Negative) Independent Interpretation I performed an independent interpretation of an: EKG and Plain X-Ray Interpretation: My independent interpretation the patient's EKG done at 14:21 hours: Atrial fibrillation with a rapid ventricular response of 113, prolonged QRS of 160 milliseconds, prolonged QTC of 485 milliseconds, patient has a right bundle anthony block, there are Q-waves in 2, 3 and AVF, there is no ST segment elevation, no ST segment depression. COMPARED TO EKG DATED 06/10/2022 THE Q-WAVES ARE OLD, RIGHT BUNDLE-BRANCH BLOCK IS OLD, ATRIAL FIBRILLATION IS OLD. My independent interpretation the patient's chest x-ray is no acute process, this correlates with the radiology reading as well. Radiology Impression Discussion of test interpretation with radiology: I have reviewed the radiologist's reading. Radiologist Impression: CT abdomen pelvis w IV con IMPRESSION: 1.? A cause for the patient's acute left-sided abdominal pain has not been found. 2.? Incidental note made of hepatosplenomegaly, cholelithiasis and compression fracture T11. ? Fleischner guidelines were followed. Dictated By:Nitin French MD Signed By:<Electronically signed by Nitin French MD 06/15/221940 Discharge Plan Discharge Patient Disposition: Admitted As Inpatient Prescriptions: No Action furosemide 40 mg tablet 40 mg PO BID atorvastatin 20 mg tablet 20 mg PO DAILY trazodone 50 mg tablet 100 mg PO BEDTIME phenytoin sodium extended 100 mg capsule 300 mg PO DAILY@0730 isosorbide mononitrate 60 mg tablet extended release 24 hr 60 mg PO QAM pantoprazole 40 mg tablet,delayed release (DR/EC) 40 mg PO DAILY metformin 1,000 mg tablet 1,000 mg PO QAM hydroxyzine HCl 25 mg tablet 25 mg PO TID PRN (Reason: anxiety) nystatin [Nyamyc] 100,000 unit/gram powder 100,000 unit topical BID PRN (Reason: Rash) phenytoin sodium extended 100 mg capsule 400 mg PO BEDTIME gabapentin 400 mg capsule 400 mg PO 5XD Rx Instructions: hold for sedation quetiapine 100 mg tablet 100 mg PO BEDTIME MDD 2 PRN (Reason: insomnia) Rx Instructions: MAY REPEAT ONCE oxycodone 5 mg tablet 5 mg PO BID PRN (Reason: severe pain) duloxetine 60 mg capsule,delayed release(DR/EC) 60 mg PO BID Eliquis 5 mg tablet 5 mg PO BID lorazepam 2 mg tablet 4 mg PO TID PRN (Reason: Anxiety) Label Comments: PATIENT STATES PROVIDER TEMPORARILY INCREASED HIS LORAZEPAM DOSE FROM 2 MG TID UP TO 4 MG TID LAST WEEK albuterol sulfate 90 mcg/actuation Hfa Aerosol Inhaler 2 puff INHALATION Q4-6H PRN (Reason: Shortness Of Breath Or Wheezing) fluticasone propionate 50 mcg/actuation [place],Suspension 1 spray INTRANASAL BID Rx Instructions: administer into each nostril metoprolol succinate 25 mg Tablet Extended Release 24 Hr 75 mg PO BID 30 Days Qty: 180 1RF Protocol: Hold for SBP/HR < HOLD for SBP < : 90 HOLD for HR < : 60
[2022-06-15 15:03] LABS: MANUAL DIFF FLAG NO
[2022-06-15 15:05] LABS: Hematocrit 36.9 % (42.0-52.0); Hemoglobin 10.7 g/dl (14.0-18.0); Imm Gran Abs Auto 0.02 X10*3/uL (0.00-0.03); Imm Gran Pct Auto 0.4 % (0.0-0.4); Lymphocytes Absolute Auto 0.4 X10*3/uL (1.2-4.9); Lymphocytes Percent Auto 7.8 % (20-40); Mean Corpuscular Hemoglobin 21.9 pg (27.0-33.0); Mean Corpuscular Volume 75.5 fL (80.0-98.0); Mean Platelet Volume 10.4 fL (9.4-12.4); Monocytes Absolute Auto 0.5 X10*3/uL (0.1-1.2); Monocytes Percent Auto 10.3 % (2-11); Neutrophils Absolute Auto 4.1 x10*3/uL (2.0-8.3); Neutrophils Percent Auto 81.5 % (45-73); Platelet Count 271 X10*3/uL (160-400); Red Blood Count 4.89 X10*6/uL (4.60-5.80); Red Cell Distribution Width 18.3 % (11.0-16.0)
[2022-06-15 15:20] LABS: Lipase 11 U/L (8-78)
[2022-06-15 15:23] LABS: INTERNATIONAL NORM RATIO 1.4 (0.9-1.1); Prothrombin Time 16.5 SEC (10.0-13.1)
[2022-06-15 15:24] LABS: Alanine Aminotransferase 8 U/L (0-40); Albumin Level 3.6 g/dL (3.5-5.0); Alkaline Phosphatase 115 U/L (39-117); Anion Gap 16 (12-20); Aspartate Amino Transferase 18 U/L (5-37); Bilirubin Total 0.4 mg/dL (0.0-1.0); Blood Urea Nitrogen 9 mg/dL (9-16); Calcium 8.6 mg/dL (8.4-10.2); Carbon Dioxide 26 mmol/L (22-29); Chloride 94 mmol/L (96-108); Creatinine Clr Calc Pharmacy 122.3; Estimated Glomerular Filt Rate > 60; Glucose Random 332 mg/dL (60-115); Potassium 4.2 mmol/L (3.3-5.1); Sodium 132 mmol/L (135-145); Total Protein 6.8 g/dL (6.5-8.0)
[2022-06-15 15:25] LABS: Partial Thromboplastin Time 28.3 SEC (26.0-36.4)
[2022-06-15 15:28] LABS: Lactic Acid 3.7 mmol/L (0.5-2.0)
[2022-06-15 15:48] LABS: Influenza A PCR NEGATIVE (Negative); Influenza B PCR NEGATIVE (Negative); Resp Syncy Virus RNA Qual PCR NEGATIVE (Negative); SARS COV2 PCR INHOUSE POSITIVE (Negative)
[2022-06-15] MEDS: levoFLOXacin/D5W 750 MG/150 ML PIGGYBACK 100 MG IV (15:52)
[2022-06-15 16:37] LABS: Appearance Urine Clear; Color Urine Yellow; Glucose Urine UA 250 mg/dL (Negative); Leukocyte Esterase Urine Negative (Negative); Nitrite Urine Negative (Negative); Urine Blood Negative (Negative); Urine Ketones Negative (Negative); Urine Protein Negative (Neg-Trace)
[2022-06-15 17:00] LABS: Reflex Lactate? Lactic Acid Added
[2022-06-15] MEDS: fentaNYL citrate/PF 100 MCG/2 ML VIAL 50 MCG IVPUSH ×2 (17:04→21:17)
--- NOTE | 2022-06-15 17:31 | PC.NURSE ---
Fluids have infused, antibiotics still running. Repeat lactic acid obtained. Afib on the monitor. COVID +.
[2022-06-15 17:32] LABS: Lactic Acid 2.5 mmol/L (0.5-2.0)
[2022-06-15] MEDS: iohexoL 350 MG/ML 100 ML INFUS..BTL IV (18:38)
[2022-06-15 19:11] LABS: Reflex Lactate? Lactic Acid Added
[2022-06-15 19:55] LABS: ~Lactic Acid-LAB USE ONLY 1.8 mmol/L (0.5-2.0)
--- NOTE | 2022-06-15 20:45 | P.HPHOSP_ITS ---
History of Present Illness Date of Service: 06/15/22 Attending physician on admission: Lyn Flores Chief Complaint: weakness, abd pain, lightheadedness 61-year-old male with history of anxiety, mild intermittent asthma, persistent atrial fibrillation anticoagulated with Eliquis, hypertension, woy-kzuanrq-iyeaoyeby type 2 diabetes, history CVA, coronary artery disease, and morbid obesity with BMI greater than 46 presented for evaluation of abdominal pain, weakness, sweats, chills, anorexia, and poor p.o. intake ongoing for 5 days. He reports that the left-sided abdominal pain described as intermittent, sharp pain is rated at an 8/10 at its worst. He has had several episodes of d iarrhea intermittently with no more than 1 episode per day. He denies any fevers, rigors, sore throat, headache, nausea, vomiting, constipation, melena, and hematochezia, shortness of breath, chest pain. He has felt like he has been wheezing headache has been using his albuterol inhaler once daily. He states that prior to arrival, he was meeting with housing adviser, when he had an episode of diarrhea and became very lightheaded and diaphoretic. At that time, the housing adviser called EMS for transfer to the ED. on arrival, patient tachycardic to 114, tachypneic to 25, hypotensive 83/55. The patient arrived to the ED on oxygen. Upon questioning, the patient states that he has been rec ommended to wear oxygen continuously at home but is not compliant with this. Oximetry on exam is 94%, but desaturates to the high 80s with movement. There has been no documented hypoxia in the ED today. He received IV fluid bolus of 2535 mL/hr NS as there was initially concern for diverticulitis with sepsis given the left lower quadrant pain and vitals. However, CT of the abdomen/pelvis was without any acute intra-abdominal abnormality. CXR was unremarkable. EKG showing AFib with RVR, rate 113, no ST/T-wave abnormalities suggestive of acute ischemia, no significant change compared to prior EKGs. Blood pressure improved to 107/54 following IV fluids and has remained stable. However he does remain tachycardic to 112, tachypneic to 28. There is no leukocytosis. Initial lactic acid elevated at 2.5, repeat 1.8. Renal function baseline. Mild hyponatremia of 132, potassium 4.2, chloride 94, CO2 26. Glucose 332. Troponin 22. Urinalysis unremarkable. Positive for COVID-19. Negative for influenza and RSV. Patient is fully vaccinated against COVID-19 with booster x 2. Review of Systems Review of Systems: General: No fevers, malaise, unintentional weight loss HEENT: +runny nose. No blurred vision, diplopia. No sore throat, nasal congestion, sinus pain, ear pain Cardiovascular: No chest pain, palpitations, or leg edema Respiratory: +sob, +cough, +wheeizng. GI: +LLQ pain, +diarrhea. No nausea, vomiting, constipation, melena, hematochezia : No dysuria, hematuria, increased urinary frequency, decreased urinary output MSK: No myalgia, back pain Neuro: +lightheadedness. No headaches, weakness, paresthesias Skin: No rashes or lesions [facility] Medical History Anxiety Arthritis Asthma Atrial fibrillation with rapid ventricular response Coronary artery disease Diabetes mellitus, type 2 Fall Hypertension Multifactorial gait disorder Obesity PTSD (post-traumatic stress disorder) TIA (transient ischemic attack) Transient ischemic attack (TIA) Social History Household Members: None Housing: Apartment Do you presently have visiting nurse or other home services: Yes Alcohol intake: former Patient Tobacco Use Status: Never used Tobacco Second Hand Smoke Exposure: No Advance Directives: Yes Advance Directives on File: Yes Advance Directives Date on File: 04/14/22 service: No Current occupational status: disabled Meds Allergies Allergy/AdvReac Type Severity Reaction Status Date / Time aspirin Allergy Severe OCCASIONAL Verified 04/08/22 14:18 RASH / TONGUE SWELLING, Hives, throat swellig bee pollen [BEE STINGS] Allergy Severe ANAPHYLAXIS Verified 04/08/22 14:18 Penicillins Allergy Severe ANAPHYLAXIS Verified 04/08/22 14:18 povidone-iodine [Betadine] Allergy Severe Redness of Verified 04/08/22 14:18 Skin soap [Betadine] Allergy Severe Redness of Verified 04/08/22 14:18 Skin spider venom [SPIDER BITES] Allergy Severe Hives Verified 04/08/22 14:18 amoxicillin Allergy Intermediate Hives Verified 04/08/22 14:18 clindamycin Allergy Mild RASH Verified 04/08/22 14:18 latex [Latex] Allergy Mild RASH Verified 04/08/22 14:18 bupropion [From WELLBUTRIN] AdvReac Severe SEIZURES Verified 04/08/22 14:18 adhesive tape AdvReac Mild Rash Verified 04/14/22 15:55 Home Medications Medication Instructions Recorded Confirmed Last Taken Type hydroxyzine HCl 25 mg tablet 25 mg PO TID PRN Itching 03/23/20 06/15/22 04/12/22 History isosorbide mononitrate 60 mg 60 mg PO QAM 03/23/20 06/15/22 04/12/22 History tablet,extended release 24 hr metformin 1,000 mg tablet 1,000 mg PO QAM 03/23/20 06/15/22 04/12/22 History pantoprazole 40 mg tablet,delayed 40 mg PO DAILY 03/23/20 06/15/22 04/12/22 History release phenytoin sodium extended 100 mg 300 mg PO DAILY@0730 03/23/20 06/15/22 04/12/22 History capsule phenytoin sodium extended 100 mg 400 mg PO BEDTIME 03/23/20 06/15/22 04/12/22 History capsule trazodone 50 mg tablet 100 mg PO BEDTIME 03/23/20 06/15/22 04/11/22 History albuterol sulfate 90 mcg/actuation 2 puff inhalation Q4-6H PRN 04/13/22 06/15/22 Unknown History aerosol inhaler Shortness Of Breath Or Wheezing apixaban 5 mg tablet (Eliquis) 5 mg PO BID 04/13/22 06/15/22 04/12/22 History gabapentin 400 mg capsule 400 mg PO 5XD 04/13/22 06/15/22 04/12/22 History oxycodone 5 mg tablet 5 mg PO BID PRN severe pain 04/13/22 06/15/22 04/12/22 History atorvastatin 80 mg tablet 1 tab PO DAILY 06/15/22 06/15/22 Unknown History cholecalciferol (vitamin D3) 50 50 mcg PO DAILY 06/15/22 06/15/22 Unknown History mcg (2,000 unit) tablet cyanocobalamin (vitamin B-12) 1,000 mcg PO DAILY 06/15/22 06/15/22 Unknown History 1,000 mcg tablet duloxetine 30 mg capsule,delayed 30 mg PO DAILY 06/15/22 06/15/22 Unknown History release duloxetine 30 mg capsule,delayed 60 mg PO BEDTIME 06/15/22 06/15/22 Unknown History release empagliflozin 10 mg tablet 1 tab PO DAILY 06/15/22 06/15/22 Unknown History (Jardiance) fluticasone propionate 50 1 spray intranasal DAILY 06/15/22 06/15/22 Unknown History mcg/actuation nasal spray,suspension insulin glargine 100 unit/mL (3 20 unit subcut BEDTIME 06/15/22 06/15/22 Unknown History mL) subcutaneous pen (Lantus Solostar U-100 Insulin) insulin lispro 100 unit/mL 1 sliding scale dose subcut 06/15/22 06/15/22 Unknown History subcutaneous solution USEASDIRECTD lorazepam 2 mg tablet 2 tab PO TID PRN anxiety 06/15/22 06/15/22 Unknown History quetiapine 100 mg tablet 1 tab PO QAM PRN Insomnia 06/15/22 06/15/22 Unknown History quetiapine 200 mg tablet 1 tab PO BID 06/15/22 06/15/22 Unknown History torsemide 20 mg tablet 2 tab PO DAILY 06/15/22 06/15/22 Unknown History Physical Exam Vital Signs and Narrative: Vital Signs: Last Vital Signs Temp 97.9 F 06/15/22 15:59 Pulse 104 H 06/15/22 20:41 Resp 20 06/15/22 20:42 BP 109/68 06/15/22 20:41 Pulse Ox 96 06/15/22 20:41 O2 Del Method 06/15/22 20:41 O2 Flow Rate 2 06/15/22 17:03 Oxygen Flow Rate 2 06/15/22 14:14 BMI result Body Mass Index 46.2 Constitutional - Awake and Alert, Pallor, No apparent distress Eyes - PERRLA, EOMI Cardiovascular - S1S2, RRR, No edema Respiratory - Normal lung expansion, Normal respiratory effort, No respiratory distress, CTA bilaterally Gastrointestinal - LLQ ttp without rebound or guarding. ND; +BS Extremities - no calf tenderness bilaterally, no swelling Musculoskeletal - Normal inspection, normal ROM Skin - Warm/Dry Neurological - Alert & oriented x3, CN II-XII in tact, 5/5 strength BUE and BLE Psychological - Appropriate affect Results Labs 06/15/22 14:53 06/15/22 14:53 Labs: Laboratory Results - last 24 hr 06/15/22 06/15/22 06/15/22 14:18 14:53 14:53 MCV 75.5 L MCH 21.9 L MCHC 29.0 L RDW 18.3 H Plt Count 271 MPV 10.4 Immature Gran % (Auto) 0.4 Neut % (Auto) 81.5 H Lymph % (Auto) 7.8 L Holmes % (Auto) 10.3 Eos % (Auto) 0.0 Baso % (Auto) 0.0 Lymph # (Auto) 0.4 L Holmes # (Auto) 0.5 Eos # (Auto) 0.0 Baso # (Auto) 0.0 Abs Immat Gran (auto) 0.02 Absolute Neuts (auto) 4.1 Absolute Nucleated RBC 0.000 Nucleated RBC % (auto) 0.0 PT INR APTT Anion Gap 16 Estim Creat Clear Calc 122.3 Estimated GFR > 60 POC Glucose 303 H Random Glucose 332 H Lactic Acid Lactic Acid F/U @ 2Hr Calcium 8.6 Total Bilirubin 0.4 AST 18 ALT 8 Alkaline Phosphatase 115 Troponin I High Sens Total Protein 6.8 Albumin 3.6 Lipase Urine Color Urine Appearance Urine pH Ur Specific [place] Urine Protein Urine Glucose (UA) Urine Ketones Urine Blood Urine Nitrite Ur Leukocyte Esterase Influenza Type A (PCR) Influenza Type B (PCR) RSV RNA Qual (PCR) SARS-CoV-2 RNA (RT-PCR) 06/15/22 06/15/22 06/15/22 14:53 14:53 14:53 MCV MCH MCHC RDW Plt Count MPV Immature Gran % (Auto) Neut % (Auto) Lymph % (Auto) Holmes % (Auto) Eos % (Auto) Baso % (Auto) Lymph # (Auto) Holmes # (Auto) Eos # (Auto) Baso # (Auto) Abs Immat Gran (auto) Absolute Neuts (auto) Absolute Nucleated RBC Nucleated RBC % (auto) PT 16.5 H INR 1.4 H APTT 28.3 Anion Gap Estim Creat Clear Calc Estimated GFR POC Glucose Random Glucose Lactic Acid 3.7 H* Lactic Acid F/U @ 2Hr Calcium Total Bilirubin AST ALT Alkaline Phosphatase Troponin I High Sens 22.0 D Total Protein Albumin Lipase Urine Color Urine Appearance Urine pH Ur Specific [place] Urine Protein Urine Glucose (UA) Urine Ketones Urine Blood Urine Nitrite Ur Leukocyte Esterase Influenza Type A (PCR) Influenza Type B (PCR) RSV RNA Qual (PCR) SARS-CoV-2 RNA (RT-PCR) 06/15/22 06/15/22 06/15/22 14:53 14:53 16:26 MCV MCH MCHC RDW Plt Count MPV Immature Gran % (Auto) Neut % (Auto) Lymph % (Auto) Holmes % (Auto) Eos % (Auto) Baso % (Auto) Lymph # (Auto) Holmes # (Auto) Eos # (Auto) Baso # (Auto) Abs Immat Gran (auto) Absolute Neuts (auto) Absolute Nucleated RBC Nucleated RBC % (auto) PT INR APTT Anion Gap Estim Creat Clear Calc Estimated GFR POC Glucose Random Glucose Lactic Acid Lactic Acid F/U @ 2Hr Calcium Total Bilirubin AST ALT Alkaline Phosphatase Troponin I High Sens Total Protein Albumin Lipase 11 Urine Color Yellow Urine Appearance Clear Urine pH 6.0 Ur Specific [place] 1.010 Urine Protein Negative Urine Glucose (UA) 250 H Urine Ketones Negative Urine Blood Negative Urine Nitrite Negative Ur Leukocyte Esterase Negative Influenza Type A (PCR) NEGATIVE Influenza Type B (PCR) NEGATIVE RSV RNA Qual (PCR) NEGATIVE SARS-CoV-2 RNA (RT-PCR) POSITIVE A 06/15/22 06/15/22 17:03 19:30 MCV MCH MCHC RDW Plt Count MPV Immature Gran % (Auto) Neut % (Auto) Lymph % (Auto) Holmes % (Auto) Eos % (Auto) Baso % (Auto) Lymph # (Auto) Holmes # (Auto) Eos # (Auto) Baso # (Auto) Abs Immat Gran (auto) Absolute Neuts (auto) Absolute Nucleated RBC Nucleated RBC % (auto) PT INR APTT Anion Gap Estim Creat Clear Calc Estimated GFR POC Glucose Random Glucose Lactic Acid 2.5 H* Lactic Acid F/U @ 2Hr 1.8 Calcium Total Bilirubin AST ALT Alkaline Phosphatase Troponin I High Sens Total Protein Albumin Lipase Urine Color Urine Appearance Urine pH Ur Specific [place] Urine Protein Urine Glucose (UA) Urine Ketones Urine Blood Urine Nitrite Ur Leukocyte Esterase Influenza Type A (PCR) Influenza Type B (PCR) RSV RNA Qual (PCR) SARS-CoV-2 RNA (RT-PCR) Imaging Radiologist's Impressions: Impressions Chest X-Ray 06/15/22 15:15 IMPRESSION: Unremarkable examination. Abdomen/Pelvis CT 06/15/22 19:09 IMPRESSION: 1. A cause for the patient's acute left-sided abdominal pain has not been found. 2. Incidental note made of hepatosplenomegaly, cholelithiasis and compression fracture T11. Fleischner guidelines were followed. Assessment and Plan (1) COVID-19 virus infection: Status: Acute (2) Weakness: Status: Acute (3) Acute dehydration: Status: Acute Plan 61-year-old male with history of anxiety, mild intermittent asthma, persistent atrial fibrillation anticoagulated with Eliquis, hypertension, ken-bkgubfq-pcqkkuhxt type 2 diabetes, history CVA, coronary artery disease, and morbid obesity with BMI greater than 46 to be observed for acute dehydration and weakness secondary to poor PO intake due to COVID-19. #COVID-19 with viral sepsis -CXR negative -No acute hypoxia. IV remdesivir and steroids not indicated -symptomatic management- guaifenesin, Tylenol, Imodium for diarrhea (intermittent- 1 episode today and 2 last tuesday) -Tachycardia, hypotension r/t dehydration, not sepsis/septic shock -PT eval for generalized weakness related to dehydration/COVID-19 # acute mild dehydration -renal function normal -resuscitated with 2500 mL IV NS in the ED. Continue gentle IVF with LR at 80 mL/hour -monitor BMP #LLQ pain -CT negative for acute intra-abdominal abnormality -likely related to COVID-19/diarrhea -hip Pain Management and Imodium as above -ABG ordered- Dr. flores to follow # persistent atrial fibrillation with RVR -EKG showing AFib with RVR, rate 113, no ST/T-wave abnormalities suggestive of acute ischemia, no significant change compared to prior EKGs -continue Eliquis for anticoagulation -due for home metoprolol dose. Continue metoprolol 75 mg b.i.d. -consider IV Lopressor or diltiazem if needed if no improvement in HR with PO metroprolol and IV fluid resuscitation # hyponatremia-likely pseudo hyponatremia secondary to hyperglycemia -manage hyperglycemia -follow BMP # lactic acidosis -secondary to metformin use, not severe sepsis -ABG ordered- Dr. flores to follow # type 2 diabetes with kvhulukoscxcs-dmm-utmwzzm-dependent -POC glucose -diabetic/cardiac diet -Humalog on sliding scale -hold metformin # history of DVT -continue Eliquis #coronary artery disease/hyperlipidemia -continue isosorbide, metoprolol.? Add aspirin # seizure disorder-stable -continue phenytoin # diabetic neuropathy -continue gabapentin # depression/anxiety Continue quetiapine, trazodone, lorazepam, duloxetine # chronic normocytic anemia-likely related to chronic disease -H/H baseline DVT prophylaxis-on Eliquis Full code Time Spent With Patient Time: Total time managing care of this patient today ____ minutes. Quality Stroke Does the patient have a stroke diagnosis?: No VTE Prior VTE?: No VTE Risk Level:: Medical - moderate - high VTE Device Contraindication: Treatment Not Indicated VTE Drug Contraindication: N/A - Med Ordered
--- NOTE | 2022-06-15 22:19 | PHA.MEDREC ---
Pharmacy Consult ? Medication Reconciliation Pharmacy has completed the medication reconciliation. Spoke with Anya from [facility]. There were some discrepancies from what patient was filling and [facility] list. [facility] list was not up to date to current prescirptions Utilzied both the complete med rec. Anya questioned the Ativan 4 mg TID prn where the prescription state 1 mg TID prn. Anya reported furosemide however patient is filling to torsemide. Anya reported Phenytoin 200 mg QAM and 400 mch QHS however may prescription state dose increase to 300 mg QAM and 4000 mg QPM. Anya added that the patent is on Lantus and Humalog SSI. She also reported that patient is on digoxin 125 mcg Q48H however this has no been filled since patient was discharged in april. I informed JORDAN Rodriguez about the digoxin. Diane Paredes, RandyD
[2022-06-15 22:26] LABS: ABG Refer to POC result
[2022-06-15 22:27] LABS: ABG Base Excess 8.7 mmol/L; ABG HCO3 33 mmol/L (22-26); ABG pCO2 45 mmHg (32-45); ABG pH 7.47 (7.35-7.45); ABG pO2 95 mmHg (83-108)
[2022-06-15] MEDS: Metoprolol Succinate ER 25 MG TAB.ER.24H 75 MG PO (22:45)
[2022-06-15] MEDS: Digoxin 0.125 MG TABLET PO (22:45)
[2022-06-15] MEDS: Apixaban 5 MG TABLET PO (22:46)
[2022-06-15] MEDS: hydrOXYzine HCL 25 MG TABLET PO (22:46)
[2022-06-15] MEDS: traZODone HCL 100 MG TABLET PO (22:46)
[2022-06-15] MEDS: DULoxetine HCl 60 MG CAPSULE.DR PO (22:46)
[2022-06-15] MEDS: Lactated Ringers 1,000 ML 80 ML IVCONT (23:00)
[2022-06-15] MEDS: Phenytoin Sodium Extended 100 MG CAPSULE 400 MG PO (23:26)
[2022-06-15] MEDS: QUEtiapine Fumarate 200 MG TABLET PO (23:27)
[2022-06-15] MEDS: Morphine Sulfate 4 MG/ML CARTRIDGE IVPUSH (23:28)
[2022-06-15] MEDS: guaiFENesin 200 MG/10 ML 10 ML LIQUID PO (23:40)
[2022-06-16] VITALS (8 sets, daily range): BP systolic 101–129; BP diastolic 53–80; PULSE 81–122; RESP 14–20; TEMP 36.3–37.2; O2SAT 93–96; BMI 44.9
[2022-06-16 05:20] LABS: Glucose, Whole Blood 136 mg/dL (60-115)
[2022-06-16] MEDS: Gabapentin 400 MG CAPSULE PO ×5 (06:45→22:23)
[2022-06-16] MEDS: Morphine Sulfate 4 MG/ML CARTRIDGE IVPUSH ×2 (06:46→22:24)
[2022-06-16 07:28] LABS: Glucose, Whole Blood 136 mg/dL (60-115)
[2022-06-16] MEDS: guaiFENesin 200 MG/10 ML 10 ML LIQUID PO ×2 (07:44→20:19)
[2022-06-16] MEDS: QUEtiapine Fumarate 200 MG TABLET PO ×2 (07:45→20:20)
[2022-06-16] MEDS: Isosorbide Mononitrate 60 MG TAB.ER.24H PO (07:45)
[2022-06-16] MEDS: DULoxetine HCl 30 MG CAPSULE.DR PO (07:45)
[2022-06-16] MEDS: Apixaban 5 MG TABLET PO ×2 (07:45→20:20)
[2022-06-16 07:46] LABS: MANUAL DIFF FLAG NO
[2022-06-16] MEDS: Metoprolol Succinate ER 25 MG TAB.ER.24H 75 MG PO ×2 (07:46→20:19)
[2022-06-16] MEDS: Phenytoin Sodium Extended 100 MG CAPSULE 300 MG PO (07:46)
[2022-06-16] MEDS: Torsemide 20 MG TABLET 40 MG PO (07:46)
[2022-06-16] MEDS: Loperamide HCl 2 MG CAPSULE PO (07:47)
[2022-06-16] MEDS: hydrOXYzine HCL 25 MG TABLET PO ×3 (07:47→20:20)
[2022-06-16] MEDS: Empagliflozin 10 MG TABLET PO (07:47)
[2022-06-16] MEDS: Atorvastatin Calcium 80 MG TABLET PO (07:47)
[2022-06-16] MEDS: Omeprazole 20 MG CAPSULE.DR PO (07:47)
[2022-06-16] MEDS: LORazepam 1 MG TABLET 2 MG PO ×2 (07:55→15:24)
[2022-06-16 08:02] LABS: Basophils Percent Auto 0.2 % (0-2); Eosinophils Percent Auto 0.6 % (0-4); Hematocrit 35.8 % (42.0-52.0); Hemoglobin 10.1 g/dl (14.0-18.0); Imm Gran Abs Auto 0.02 X10*3/uL (0.00-0.03); Imm Gran Pct Auto 0.4 % (0.0-0.4); Lymphocytes Absolute Auto 0.9 X10*3/uL (1.2-4.9); Lymphocytes Percent Auto 18.2 % (20-40); Mean Corpuscular HGB Conc 28.2 g/dl (31.0-36.0); Mean Corpuscular Hemoglobin 21.5 pg (27.0-33.0); Mean Corpuscular Volume 76.3 fL (80.0-98.0); Mean Platelet Volume 10.6 fL (9.4-12.4); Monocytes Absolute Auto 0.7 X10*3/uL (0.1-1.2); Monocytes Percent Auto 14.8 % (2-11); Neutrophils Absolute Auto 3.3 x10*3/uL (2.0-8.3); Neutrophils Percent Auto 65.8 % (45-73); Platelet Count 274 X10*3/uL (160-400); Red Blood Count 4.69 X10*6/uL (4.60-5.80); Red Cell Distribution Width 18.4 % (11.0-16.0)
[2022-06-16 08:08] LABS: Anion Gap 13 (12-20); Blood Urea Nitrogen 8 mg/dL (9-16); Calcium 8.5 mg/dL (8.4-10.2); Carbon Dioxide 30 mmol/L (22-29); Chloride 98 mmol/L (96-108); Creatinine Clr Calc Pharmacy 154.8; Estimated Glomerular Filt Rate > 60; Glucose Random 137 mg/dL (60-115); Potassium 3.6 mmol/L (3.3-5.1); Sodium 137 mmol/L (135-145)
--- NOTE | 2022-06-16 11:27 | HO.PM.IMPN ---
Subjective Subjective Date of Service: 06/16/22 Physical Exam Vital Signs: Vital Signs: Last Vital Signs Temp 98.6 F 06/16/22 10:55 Pulse 99 06/16/22 10:55 Resp 14 06/16/22 10:55 BP 126/66 06/16/22 10:55 Pulse Ox 95 06/16/22 10:55 O2 Del Method 06/16/22 10:55 O2 Flow Rate 2 06/16/22 10:55 Oxygen Flow Rate 2 06/15/22 14:14 BMI result Body Mass Index 44.9 Objective Data Active Medications Acetaminophen (Acetaminophen 325 Mg Tablet) 650 mg PO Q6H PRN PRN Reason: Pain, Mild (Pain Scale 1-3) Albuterol Sulfate (Albuterol Sulfate (0.083%) 2.5 Mg/3 Ml Vial.Neb) 2.5 mg INHALE Q2H PRN PRN Reason: Shortness of Breath/Wheezing Apixaban (Apixaban 5 Mg Tablet) 5 mg PO BID [facility] Last Admin: 06/16/22 07:45 Dose: 5 mg Documented By: LOLIS Atorvastatin Calcium (Atorvastatin Calcium 80 Mg Tablet) 80 mg PO DAILY [facility] Last Admin: 06/16/22 07:47 Dose: 80 mg Documented By: LOLIS Dextrose (Dextrose 50 % 25 Gm/50 Ml Syringe) 25 gm IVPUSH Q15M PRN; Protocol PRN Reason: per Hypoglycemia Standing Ord. Digoxin (Digoxin 0.125 Mg Tablet) 0.125 mg PO Q48H [facility] Last Admin: 06/15/22 22:45 Dose: 0.125 mg Documented By: DANIE Docusate Sodium (Docusate Sodium 100 Mg Capsule) 100 mg PO DAILY PRN PRN Reason: Constipation Duloxetine HCl (Duloxetine Hcl 30 Mg Capsule.) 30 mg PO DAILY [facility] Last Admin: 06/16/22 07:45 Dose: 30 mg Documented By: LOLIS Duloxetine HCl (Duloxetine Hcl 60 Mg Capsule.) 60 mg PO BEDTIME [facility] Last Admin: 06/15/22 22:46 Dose: 60 mg Documented By: DANIE Empagliflozin (Empagliflozin 10 Mg Tablet) 10 mg PO DAILY [facility] Last Admin: 06/16/22 07:47 Dose: 10 mg Documented By: LOLIS Gabapentin (Gabapentin 400 Mg Capsule) 400 mg PO 5XD [facility] Last Admin: 06/16/22 06:45 Dose: 400 mg Documented By: MOISES Glucose (Glucose Gel 15 Gm Gel..Gram.) 15 gm PO Q15M PRN; Protocol PRN Reason: per Hypoglycemia Standing Ord. Guaifenesin (Guaifenesin 200 Mg/10 Ml 10 Ml Liquid) 10 ml PO Q4H PRN PRN Reason: Cough Last Admin: 06/16/22 07:44 Dose: 10 ml Documented By: LOLIS Hydroxyzine HCl (Hydroxyzine Hcl 25 Mg Tablet) 25 mg PO TID [facility] Last Admin: 06/16/22 07:47 Dose: 25 mg Documented By: LOLIS Lactated Ringer's (Lr) 1,000 mls @ 80 mls/hr IVCONT .[id number] [facility] Last Admin: 06/15/22 23:00 Dose: 80 mls/hr Documented By: DANIE Insulin Human Lispro (Insulin Lispro 100 Unit/Ml 3 Ml Vial) 0 unit SUBCUT QIDACHS [facility]; Protocol Last Admin: 06/16/22 07:47 Dose: Not Given Documented By: LOLIS Non-Admin Reason: No Insulin Coverage Isosorbide Mononitrate (Isosorbide Mononitrate 60 Mg Tab.Er.24h) 60 mg PO DAILY [facility]; Protocol Last Admin: 06/16/22 07:45 Dose: 60 mg Documented By: LOLIS Loperamide HCl (Loperamide Hcl 2 Mg Capsule) 2 mg PO Q4H PRN PRN Reason: Diarrhea Last Admin: 06/16/22 07:47 Dose: 2 mg Documented By: LOLIS Lorazepam (Lorazepam 1 Mg Tablet) 2 mg PO TID PRN PRN Reason: anxiety Last Admin: 06/16/22 07:55 Dose: 2 mg Documented By: LOLIS Metoprolol Succinate (Metoprolol Succinate Er 25 Mg Tab.Er.24h) 75 mg PO BID [facility]; Protocol Last Admin: 06/16/22 07:46 Dose: 75 mg Documented By: LOLIS Morphine Sulfate (Morphine Sulfate 4 Mg/Ml Cartridge) 4 mg IVPUSH Q4H PRN; Protocol PRN Reason: Pain, Severe (Pain Scale 7-10) Last Admin: 06/16/22 06:46 Dose: 4 mg Documented By: MOISES Omeprazole (Omeprazole 20 Mg Capsule.Dr) 20 mg PO DAILY@629 [facility] Last Admin: 06/16/22 07:47 Dose: 20 mg Documented By: LOLIS Oxycodone HCl (Oxycodone Hcl Immed Release 5 Mg Tablet) 5 mg PO Q6H PRN PRN Reason: Pain, Moderate (Pain Scale 4-6 Oxycodone HCl (Oxycodone Hcl Immed Release 5 Mg Tablet) 5 mg PO BID PRN PRN Reason: severe pain Phenytoin Sodium (Phenytoin Sodium Extended 100 Mg Capsule) 300 mg PO DAILY@729 [facility] Last Admin: 06/16/22 07:46 Dose: 300 mg Documented By: LOLIS Phenytoin Sodium (Phenytoin Sodium Extended 100 Mg Capsule) 400 mg PO BEDTIME [facility] Last Admin: 06/15/22 23:26 Dose: 400 mg Documented By: DANIE Quetiapine Fumarate (Quetiapine Fumarate 100 Mg Tablet) 100 mg PO DAILY PRN PRN Reason: anxiety Quetiapine Fumarate (Quetiapine Fumarate 200 Mg Tablet) 200 mg PO BID [facility] Last Admin: 06/16/22 07:45 Dose: 200 mg Documented By: LOLIS Sodium Chloride (0.9 % Sodium Chloride Flush 3 Ml Syringe) [facility] Last Admin: 06/16/22 07:56 Dose: Not Given Documented By: LOLIS Non-Admin Reason: IV Running Torsemide (Torsemide 20 Mg Tablet) 40 mg PO DAILY [facility]; Protocol Last Admin: 06/16/22 07:46 Dose: 40 mg Documented By: LOLIS Trazodone HCl (Trazodone Hcl 100 Mg Tablet) 100 mg PO BEDTIME [facility] Last Admin: 06/15/22 22:46 Dose: 100 mg Documented By: DANIE Labs 06/16/22 07:30 06/16/22 07:30 Labs: Laboratory Results - last 24 hr 06/15/22 06/15/22 06/15/22 14:18 14:53 14:53 MCV 75.5 L MCH 21.9 L MCHC 29.0 L RDW 18.3 H Plt Count 271 MPV 10.4 Immature Gran % (Auto) 0.4 Neut % (Auto) 81.5 H Lymph % (Auto) 7.8 L [place] % (Auto) 10.3 Eos % (Auto) 0.0 Baso % (Auto) 0.0 Lymph # (Auto) 0.4 L [place] # (Auto) 0.5 Eos # (Auto) 0.0 Baso # (Auto) 0.0 Abs Immat Gran (auto) 0.02 Absolute Neuts (auto) 4.1 Absolute Nucleated RBC 0.000 Nucleated RBC % (auto) 0.0 PT INR APTT O2 Saturation ABG pH at Pt Temp ABG pCO2 at Pt Temp ABG pO2 at Pt Temp ABG HCO3 ABG Base Excess (Actual) Anion Gap 16 Estim Creat Clear Calc 122.3 Estimated GFR > 60 POC Glucose 303 H Random Glucose 332 H Lactic Acid Lactic Acid F/U @ 2Hr Calcium 8.6 Total Bilirubin 0.4 AST 18 ALT 8 Alkaline Phosphatase 115 Troponin I High Sens Total Protein 6.8 Albumin 3.6 Lipase Urine Color Urine Appearance Urine pH Ur Specific [place] Urine Protein Urine Glucose (UA) Urine Ketones Urine Blood Urine Nitrite Ur Leukocyte Esterase Influenza Type A (PCR) Influenza Type B (PCR) RSV RNA Qual (PCR) SARS-CoV-2 RNA (RT-PCR) 06/15/22 06/15/22 06/15/22 14:53 14:53 14:53 MCV MCH MCHC RDW Plt Count MPV Immature Gran % (Auto) Neut % (Auto) Lymph % (Auto) [place] % (Auto) Eos % (Auto) Baso % (Auto) Lymph # (Auto) [place] # (Auto) Eos # (Auto) Baso # (Auto) Abs Immat Gran (auto) Absolute Neuts (auto) Absolute Nucleated RBC Nucleated RBC % (auto) PT 16.5 H INR 1.4 H APTT 28.3 O2 Saturation ABG pH at Pt Temp ABG pCO2 at Pt Temp ABG pO2 at Pt Temp ABG HCO3 ABG Base Excess (Actual) Anion Gap Estim Creat Clear Calc Estimated GFR POC Glucose Random Glucose Lactic Acid 3.7 H* Lactic Acid F/U @ 2Hr Calcium Total Bilirubin AST ALT Alkaline Phosphatase Troponin I High Sens 22.0 D Total Protein Albumin Lipase Urine Color Urine Appearance Urine pH Ur Specific [place] Urine Protein Urine Glucose (UA) Urine Ketones Urine Blood Urine Nitrite Ur Leukocyte Esterase Influenza Type A (PCR) Influenza Type B (PCR) RSV RNA Qual (PCR) SARS-CoV-2 RNA (RT-PCR) 06/15/22 06/15/22 06/15/22 14:53 14:53 16:26 MCV MCH MCHC RDW Plt Count MPV Immature Gran % (Auto) Neut % (Auto) Lymph % (Auto) [place] % (Auto) Eos % (Auto) Baso % (Auto) Lymph # (Auto) [place] # (Auto) Eos # (Auto) Baso # (Auto) Abs Immat Gran (auto) Absolute Neuts (auto) Absolute Nucleated RBC Nucleated RBC % (auto) PT INR APTT O2 Saturation ABG pH at Pt Temp ABG pCO2 at Pt Temp ABG pO2 at Pt Temp ABG HCO3 ABG Base Excess (Actual) Anion Gap Estim Creat Clear Calc Estimated GFR POC Glucose Random Glucose Lactic Acid Lactic Acid F/U @ 2Hr Calcium Total Bilirubin AST ALT Alkaline Phosphatase Troponin I High Sens Total Protein Albumin Lipase 11 Urine Color Yellow Urine Appearance Clear Urine pH 6.0 Ur Specific [place] 1.010 Urine Protein Negative Urine Glucose (UA) 250 H Urine Ketones Negative Urine Blood Negative Urine Nitrite Negative Ur Leukocyte Esterase Negative Influenza Type A (PCR) NEGATIVE Influenza Type B (PCR) NEGATIVE RSV RNA Qual (PCR) NEGATIVE SARS-CoV-2 RNA (RT-PCR) POSITIVE A 06/15/22 06/15/22 06/15/22 17:03 19:30 22:21 MCV MCH MCHC RDW Plt Count MPV Immature Gran % (Auto) Neut % (Auto) Lymph % (Auto) [place] % (Auto) Eos % (Auto) Baso % (Auto) Lymph # (Auto) [place] # (Auto) Eos # (Auto) Baso # (Auto) Abs Immat Gran (auto) Absolute Neuts (auto) Absolute Nucleated RBC Nucleated RBC % (auto) PT INR APTT O2 Saturation 99.0 ABG pH at Pt Temp 7.47 H ABG pCO2 at Pt Temp 45 ABG pO2 at Pt Temp 95 ABG HCO3 33 H ABG Base Excess (Actual) 8.7 Anion Gap Estim Creat Clear Calc Estimated GFR POC Glucose Random Glucose Lactic Acid 2.5 H* Lactic Acid F/U @ 2Hr 1.8 Calcium Total Bilirubin AST ALT Alkaline Phosphatase Troponin I High Sens Total Protein Albumin Lipase Urine Color Urine Appearance Urine pH Ur Specific [place] Urine Protein Urine Glucose (UA) Urine Ketones Urine Blood Urine Nitrite Ur Leukocyte Esterase Influenza Type A (PCR) Influenza Type B (PCR) RSV RNA Qual (PCR) SARS-CoV-2 RNA (RT-PCR) 06/16/22 06/16/22 06/16/22 05:17 07:10 07:30 MCV 76.3 L MCH 21.5 L MCHC 28.2 L RDW 18.4 H Plt Count 274 MPV 10.6 Immature Gran % (Auto) 0.4 Neut % (Auto) 65.8 Lymph % (Auto) 18.2 L [place] % (Auto) 14.8 H Eos % (Auto) 0.6 Baso % (Auto) 0.2 Lymph # (Auto) 0.9 L [place] # (Auto) 0.7 Eos # (Auto) 0.0 Baso # (Auto) 0.0 Abs Immat Gran (auto) 0.02 Absolute Neuts (auto) 3.3 Absolute Nucleated RBC 0.000 Nucleated RBC % (auto) 0.0 PT INR APTT O2 Saturation ABG pH at Pt Temp ABG pCO2 at Pt Temp ABG pO2 at Pt Temp ABG HCO3 ABG Base Excess (Actual) Anion Gap Estim Creat Clear Calc Estimated GFR POC Glucose 136 H 136 H Random Glucose Lactic Acid Lactic Acid F/U @ 2Hr Calcium Total Bilirubin AST ALT Alkaline Phosphatase Troponin I High Sens Total Protein Albumin Lipase Urine Color Urine Appearance Urine pH Ur Specific [place] Urine Protein Urine Glucose (UA) Urine Ketones Urine Blood Urine Nitrite Ur Leukocyte Esterase Influenza Type A (PCR) Influenza Type B (PCR) RSV RNA Qual (PCR) SARS-CoV-2 RNA (RT-PCR) 06/16/22 07:30 MCV MCH MCHC RDW Plt Count MPV Immature Gran % (Auto) Neut % (Auto) Lymph % (Auto) [place] % (Auto) Eos % (Auto) Baso % (Auto) Lymph # (Auto) [place] # (Auto) Eos # (Auto) Baso # (Auto) Abs Immat Gran (auto) Absolute Neuts (auto) Absolute Nucleated RBC Nucleated RBC % (auto) PT INR APTT O2 Saturation ABG pH at Pt Temp ABG pCO2 at Pt Temp ABG pO2 at Pt Temp ABG HCO3 ABG Base Excess (Actual) Anion Gap 13 Estim Creat Clear Calc 154.8 Estimated GFR > 60 POC Glucose Random Glucose 137 H Lactic Acid Lactic Acid F/U @ 2Hr Calcium 8.5 Total Bilirubin AST ALT Alkaline Phosphatase Troponin I High Sens Total Protein Albumin Lipase Urine Color Urine Appearance Urine pH Ur Specific [place] Urine Protein Urine Glucose (UA) Urine Ketones Urine Blood Urine Nitrite Ur Leukocyte Esterase Influenza Type A (PCR) Influenza Type B (PCR) RSV RNA Qual (PCR) SARS-CoV-2 RNA (RT-PCR) Assessment and Plan (1) COVID-19 virus infection: Status: Acute Plan 61-year-old male with history of anxiety, mild intermittent asthma, persistent atrial fibrillation anticoagulated with Eliquis, hypertension, dbu-uozemze-ozifzxqim type 2 diabetes, history CVA, coronary artery disease, and morbid obesity with BMI greater than 46 to be observed for acute dehydration and weakness secondary to poor PO intake due to COVID-19. COVID-19 with viral sepsis CXR negative for consolidation No acute hypoxia. IV remdesivir and steroids not indicated symptomatic management- guaifenesin, Tylenol, Imodium for diarrhea Tachycardia, hypotension r/t dehydration, not sepsis/septic shock PT eval for generalized weakness related to dehydration/COVID-19 acute mild dehydration renal function normal resuscitated with 2500 mL IV NS in the ED.? Continue gentle IVF monitor BMP LLQ pain CT negative for acute intra-abdominal abnormality likely related to COVID-19/diarrhea persistent atrial fibrillation with RVR EKG showing AFib with RVR, rate 113, no ST/T-wave abnormalities suggestive of acute ischemia, no significant change compared to prior EKGs continue Eliquis for anticoagulation Continue metoprolol 75 mg b.i.d. hyponatremia. Resolved likely pseudo hyponatremia secondary to hyperglycemia manage hyperglycemia follow BMP lactic acidosis secondary to metformin use, not severe sepsis type 2 diabetes with uravktwgffvuj-xye-higxwfr-dependent ss, ada diet history of DVT continue Eliquis coronary artery disease/hyperlipidemia continue isosorbide, metoprolol.? Add aspirin seizure disorder-stable continue phenytoin diabetic neuropathy continue gabapentin depression/anxiety Continue quetiapine, trazodone, lorazepam, duloxetine chronic microcytic anemia-likely related to chronic disease H/H baseline DVT prophylaxis-on Eliquis Attending Dr. Arshad Full code Time Spent With Patient Time: Total time managing care of this patient today ____ minutes. Quality Stroke Does the patient have a stroke diagnosis?: No VTE Prior VTE?: No VTE Risk Level:: Medical - moderate - high VTE Device Contraindication: Treatment Not Indicated VTE Drug Contraindication: N/A - Med Ordered
[2022-06-16 11:29] LABS: Glucose, Whole Blood 182 mg/dL (60-115)
[2022-06-16] MEDS: Insulin Lispro 100 UNIT/ML 3 ML VIAL SUBCUT ×3 (11:45→22:24)
--- NOTE | 2022-06-16 13:33 | MHC.CM.PN ---
Addendum entered by Luanne Glass 06/16/22 15:50: [facility] is active with the patient. They will resume services at discharge. Addendum entered by Luanne Glass 06/16/22 14:45: [facility] is no longer active with the patient. They have declined to accept the patient r/t agency being at capacity. A referral has been sent to [facility]. Original Note: Male 61 DX Covid weakness dehydration. Patient lives by himself with assist from [employer] as well as [facility] and PT services. DP is to resume services already in place. Pt states that his sister will provide transportation home. Patient is willing to discharge to STR if he qualifies. He stated that he has been to a few STR facilities. He does not have a preference. A referral has been sent to [facility] requesting resumption of services at discharge. Pt has a HCP on file. He has been covid vaxxed x 4.
[2022-06-16] MEDS: Lactated Ringers 1,000 ML 80 ML IVCONT ×2 (13:59→23:56)
[2022-06-16] MEDS: 0.9 % Sodium Chloride Flush 3 ML SYRINGE IVFLUSH ×2 (15:18→23:56)
[2022-06-16 16:37] LABS: Glucose, Whole Blood 209 mg/dL (60-115)
[2022-06-16] MEDS: oxyCODONE HCl Immed Release 5 MG TABLET PO (20:19)
[2022-06-16] MEDS: Phenytoin Sodium Extended 100 MG CAPSULE 400 MG PO (20:19)
[2022-06-16] MEDS: DULoxetine HCl 60 MG CAPSULE.DR PO (20:20)
[2022-06-16] MEDS: traZODone HCL 100 MG TABLET PO (20:20)
[2022-06-16 20:37] LABS: Glucose, Whole Blood 168 mg/dL (60-115)
[2022-06-17] VITALS (15 sets, daily range): BP systolic 101–159; BP diastolic 64–73; PULSE 70–103; RESP 18–20; TEMP 36.2–37.1; O2SAT 86–97
[2022-06-17] MEDS: Omeprazole 20 MG CAPSULE.DR PO (05:51)
[2022-06-17] MEDS: Gabapentin 400 MG CAPSULE PO ×5 (05:51→20:52)
[2022-06-17 07:27] LABS: Glucose, Whole Blood 133 mg/dL (60-115)
[2022-06-17 08:18] LABS: Anion Gap 15 (12-20); Blood Urea Nitrogen 11 mg/dL (9-16); Calcium 8.2 mg/dL (8.4-10.2); Carbon Dioxide 29 mmol/L (22-29); Chloride 98 mmol/L (96-108); Creatinine Clr Calc Pharmacy 152.9; Estimated Glomerular Filt Rate > 60; Glucose Random 139 mg/dL (60-115); Iron 19 mcg/dL (45-160); Percent Iron Saturation 8 % (15-50); Potassium 3.3 mmol/L (3.3-5.1); Sodium 139 mmol/L (135-145); Total Iron Binding Capacity 225 mcg/dL (228-428); Unsaturated Iron Binding 206 ug/dL
[2022-06-17] MEDS: 0.9 % Sodium Chloride Flush 3 ML SYRINGE IVFLUSH ×3 (09:02→23:45)
[2022-06-17] MEDS: Phenytoin Sodium Extended 100 MG CAPSULE 300 MG PO (09:04)
[2022-06-17] MEDS: Torsemide 20 MG TABLET 40 MG PO (09:05)
[2022-06-17] MEDS: QUEtiapine Fumarate 200 MG TABLET PO ×2 (09:05→20:54)
[2022-06-17] MEDS: hydrOXYzine HCL 25 MG TABLET PO ×3 (09:06→20:54)
[2022-06-17] MEDS: Apixaban 5 MG TABLET PO ×2 (09:06→20:53)
[2022-06-17] MEDS: oxyCODONE HCl Immed Release 5 MG TABLET PO (09:06)
[2022-06-17] MEDS: Atorvastatin Calcium 80 MG TABLET PO (09:07)
[2022-06-17] MEDS: Metoprolol Succinate ER 25 MG TAB.ER.24H 75 MG PO (09:07)
[2022-06-17] MEDS: DULoxetine HCl 30 MG CAPSULE.DR PO (09:08)
[2022-06-17] MEDS: Empagliflozin 10 MG TABLET PO (09:08)
[2022-06-17] MEDS: Isosorbide Mononitrate 60 MG TAB.ER.24H PO (09:09)
[2022-06-17 11:15] LABS: Glucose, Whole Blood 204 mg/dL (60-115)
[2022-06-17] MEDS: Insulin Lispro 100 UNIT/ML 3 ML VIAL SUBCUT ×3 (11:56→20:54)
[2022-06-17] MEDS: Lactated Ringers 1,000 ML 80 ML IVCONT (11:56)
--- NOTE | 2022-06-17 13:26 | P.PNIM_ITS ---
Subjective Subjective Date of Service: 06/17/22 Interval History: seen and examined this morning Follow-up for decreased p.o. intake, COVID-19. states he was told to use oxygen at home by someone but does not use it denies sob, has cough, intermittent phlegm production, difficulty bringing up phlegm Review of Systems Review of Systems: Yes all other systems are reviewed and are negative Constitutional Constitutional: Denies chills and Denies fever(s) Cardiovascular Cardiovascular: Denies chest pain, Denies palpitations and Denies dyspnea Respiratory Respiratory: Reports cough and Denies dyspnea Gastrointestinal Gastrointestinal: Denies abdominal pain, Denies nausea and Denies vomiting Endocrine Endocrine: Denies palpitations Physical Exam Vital Signs: Vital Signs: Last Vital Signs Temp 98.4 F 06/17/22 11:28 Pulse 101 H 06/17/22 11:28 Resp 20 06/17/22 11:28 BP 118/67 06/17/22 11:28 Pulse Ox 86 L 06/17/22 12:37 O2 Del Method 06/17/22 12:37 O2 Flow Rate 2.5 06/17/22 11:28 Oxygen Flow Rate 2 06/15/22 14:14 BMI result Body Mass Index 44.9 Const: General: no acute distress, alert and awake Nutritional Appearance: obese Orientation/consciousness: patient oriented x3 Resp: Effort & Inspection: normal respiratory effort and able to speak in complete sentences Cardio: Rate: regular rate Heart sounds: S1 normal heart sound present and S2 normal heart sound present GI: Inspection: Yes obesity Palpation (GI): Soft to palpation and nontender Neuro: General: patient oriented x3 and CN's II-XI intact bilaterally Extrem: Other: trace leg edema Objective Data Active Medications Acetaminophen (Acetaminophen 325 Mg Tablet) 650 mg PO Q6H PRN PRN Reason: Pain, Mild (Pain Scale 1-3) Albuterol Sulfate (Albuterol Sulfate (0.083%) 2.5 Mg/3 Ml Vial.Neb) 2.5 mg INHALE Q2H PRN PRN Reason: Shortness of Breath/Wheezing Apixaban (Apixaban 5 Mg Tablet) 5 mg PO BID [facility] Last Admin: 06/17/22 09:06 Dose: 5 mg Documented By: LOLIS Atorvastatin Calcium (Atorvastatin Calcium 80 Mg Tablet) 80 mg PO DAILY [facility] Last Admin: 06/17/22 09:07 Dose: 80 mg Documented By: LOLIS Dexamethasone Sodium Phosphate (Dexamethasone Sod Phosphate 4 Mg/Ml Vial) 6 mg IVPUSH DAILY [facility] Stop: 06/26/22 09:01 Dextrose (Dextrose 50 % 25 Gm/50 Ml Syringe) 25 gm IVPUSH Q15M PRN; Protocol PRN Reason: per Hypoglycemia Standing Ord. Digoxin (Digoxin 0.125 Mg Tablet) 0.125 mg PO Q48H [facility] Last Admin: 06/15/22 22:45 Dose: 0.125 mg Documented By: DANIE Docusate Sodium (Docusate Sodium 100 Mg Capsule) 100 mg PO DAILY PRN PRN Reason: Constipation Duloxetine HCl (Duloxetine Hcl 30 Mg Capsule.) 30 mg PO DAILY [facility] Last Admin: 06/17/22 09:08 Dose: 30 mg Documented By: LOLIS Duloxetine HCl (Duloxetine Hcl 60 Mg Capsule.) 60 mg PO BEDTIME [facility] Last Admin: 06/16/22 20:20 Dose: 60 mg Documented By: TIAGO Empagliflozin (Empagliflozin 10 Mg Tablet) 10 mg PO DAILY [facility] Last Admin: 06/17/22 09:08 Dose: 10 mg Documented By: LOLIS Gabapentin (Gabapentin 400 Mg Capsule) 400 mg PO 5XD [facility] Last Admin: 06/17/22 09:06 Dose: 400 mg Documented By: LOLIS Glucose (Glucose Gel 15 Gm Gel..Gram.) 15 gm PO Q15M PRN; Protocol PRN Reason: per Hypoglycemia Standing Ord. Guaifenesin (Guaifenesin 200 Mg/10 Ml 10 Ml Liquid) 10 ml PO Q4H PRN PRN Reason: Cough Last Admin: 06/16/22 20:19 Dose: 10 ml Documented By: TIAGO Hydroxyzine HCl (Hydroxyzine Hcl 25 Mg Tablet) 25 mg PO TID [facility] Last Admin: 06/17/22 09:06 Dose: 25 mg Documented By: LOLIS Insulin Human Lispro (Insulin Lispro 100 Unit/Ml 3 Ml Vial) 0 unit SUBCUT QIDACHS [facility]; Protocol Last Admin: 06/17/22 11:56 Dose: 4 unit Documented By: LOLIS Isosorbide Mononitrate (Isosorbide Mononitrate 60 Mg Tab.Er.24h) 60 mg PO DAILY [facility]; Protocol Last Admin: 06/17/22 09:09 Dose: 60 mg Documented By: LOLIS Loperamide HCl (Loperamide Hcl 2 Mg Capsule) 2 mg PO Q4H PRN PRN Reason: Diarrhea Last Admin: 06/16/22 07:47 Dose: 2 mg Documented By: LOLIS Lorazepam (Lorazepam 1 Mg Tablet) 2 mg PO TID PRN PRN Reason: anxiety Last Admin: 06/16/22 15:24 Dose: 2 mg Documented By: TIAGO Metoprolol Succinate (Metoprolol Succinate Er 100 Mg Tab.Er.24h) 100 mg PO BID [facility]; Protocol Morphine Sulfate (Morphine Sulfate 4 Mg/Ml Cartridge) 4 mg IVPUSH Q4H PRN; Protocol PRN Reason: Pain, Severe (Pain Scale 7-10) Last Admin: 06/16/22 22:24 Dose: 4 mg Documented By: TIAGO Omeprazole (Omeprazole 20 Mg Capsule.Dr) 20 mg PO DAILY@0630 [facility] Last Admin: 06/17/22 05:51 Dose: 20 mg Documented By: THONY Oxycodone HCl (Oxycodone Hcl Immed Release 5 Mg Tablet) 5 mg PO Q6H PRN PRN Reason: Pain, Moderate (Pain Scale 4-6 Last Admin: 06/17/22 09:06 Dose: 5 mg Documented By: LOLIS Oxycodone HCl (Oxycodone Hcl Immed Release 5 Mg Tablet) 5 mg PO BID PRN PRN Reason: severe pain Last Admin: 06/16/22 20:19 Dose: 5 mg Documented By: TIAGO Phenytoin Sodium (Phenytoin Sodium Extended 100 Mg Capsule) 300 mg PO DAILY@0730 [facility] Last Admin: 06/17/22 09:04 Dose: 300 mg Documented By: LOLIS Phenytoin Sodium (Phenytoin Sodium Extended 100 Mg Capsule) 400 mg PO BEDTIME [facility] Last Admin: 06/16/22 20:19 Dose: 400 mg Documented By: TIAGO Quetiapine Fumarate (Quetiapine Fumarate 100 Mg Tablet) 100 mg PO DAILY PRN PRN Reason: anxiety Quetiapine Fumarate (Quetiapine Fumarate 200 Mg Tablet) 200 mg PO BID [facility] Last Admin: 06/17/22 09:05 Dose: 200 mg Documented By: LOLIS Sodium Chloride (0.9 % Sodium Chloride Flush 3 Ml Syringe) 3 ml IVFLUSH QSHIFT [facility] Last Admin: 06/17/22 09:02 Dose: 3 ml Documented By: LOLIS Torsemide (Torsemide 20 Mg Tablet) 40 mg PO DAILY [facility]; Protocol Last Admin: 06/17/22 09:05 Dose: 40 mg Documented By: LOLIS Trazodone HCl (Trazodone Hcl 100 Mg Tablet) 100 mg PO BEDTIME [facility] Last Admin: 06/16/22 20:20 Dose: 100 mg Documented By: TIAGO Labs 06/16/22 07:30 06/17/22 06:40 Labs: Laboratory Results - last 24 hr 06/16/22 06/16/22 06/17/22 16:27 20:34 06:40 Anion Gap 15 Estim Creat Clear Calc 152.9 Estimated GFR > 60 POC Glucose 209 H 168 H Random Glucose 139 H Calcium 8.2 L Iron 19 L TIBC 225 L % Saturation 8 L Unsat Iron Binding 206 06/17/22 06/17/22 06/17/22 06:40 07:20 11:05 Anion Gap Estim Creat Clear Calc Estimated GFR POC Glucose 133 H 204 H Random Glucose Calcium Iron Cancelled TIBC Cancelled % Saturation Cancelled Unsat Iron Binding Cancelled Microbiology Microbiology Results: Microbiology 06/15/22 14:53 Blood Culture - Preliminary Blood - Venous No growth after 24 hours. 06/15/22 14:53 Blood Culture - Preliminary Blood - Venous No growth after 24 hours. Assessment and Plan (1) COVID-19 virus infection: Status: Acute Plan 61-year-old male with history of anxiety, mild intermittent asthma, persistent atrial fibrillation anticoagulated with Eliquis, hypertension, zuj-ahdnevh-ynjemshyg type 2 diabetes, history CVA, coronary artery disease, and morbid obesity with BMI greater than 46 to be observed for acute dehydration and weakness secondary to poor PO intake due to COVID-19. acute hypoxic respiratory failure related to COVID-19 with viral sepsis CXR negative for consolidation hypoxic - states that he is supposed to use oxygen at home, but he is noncompliant - do not see any previous documentation to indicate home o2 will start IV decadron continue symptomatic management Tachycardia, hypotension r/t dehydration, not sepsis/septic shock PT eval for generalized weakness related to dehydration/COVID-19 acute mild dehydration renal function normal s/p IVF renal function at baseline LLQ pain CT negative for acute intra-abdominal abnormality likely related to COVID-19/diarrhea persistent atrial fibrillation with RVR EKG showing AFib with RVR, rate 113, no ST/T-wave abnormalities suggestive of acute ischemia, no significant change compared to prior EKGs continue Eliquis for anticoagulation will increase metoprolol to 100 b.i.d. hold digoxin hyponatremia. Resolved likely pseudo hyponatremia secondary to hyperglycemia manage hyperglycemia follow BMP lactic acidosis secondary to metformin use, not severe sepsis type 2 diabetes metformin, lantus on hold ss, ada diet history of DVT continue Eliquis coronary artery disease/hyperlipidemia continue isosorbide, metoprolol seizure disorder-stable continue phenytoin diabetic neuropathy/chronic pain continue gabapentin continue home oxycodone depression/anxiety Continue quetiapine, trazodone, lorazepam, duloxetine chronic microcytic anemia-likely related to chronic disease H/H baseline morbid obesity bmi 44.9 contributing to respiratory issues DVT prophylaxis-on Eliquis Attending Dr. Arshad Full code patient requires ongoing inpatient hospitalization for management of COVID- 19/hypoxia Time Spent With Patient Time: Total time managing care of this patient today ____ minutes. Quality Stroke Does the patient have a stroke diagnosis?: No VTE Prior VTE?: No VTE Risk Level:: Medical - moderate - high VTE Device Contraindication: Treatment Not Indicated VTE Drug Contraindication: N/A - Med Ordered
[2022-06-17] MEDS: dexAMETHasone sod phosphate 4 MG/ML VIAL 6 MG IVPUSH (13:42)
[2022-06-17] MEDS: guaiFENesin LA 600 MG TAB.ER.12H 1200 MG PO ×2 (14:40→20:52)
[2022-06-17] MEDS: Morphine Sulfate 2 MG/ML CARTRIDGE IVPUSH ×2 (14:41→20:54)
[2022-06-17 15:51] LABS: Glucose, Whole Blood 238 mg/dL (60-115)
--- NOTE | 2022-06-17 16:50 | MHC.CM.PN ---
DP home with resumption of [facility] and [employer] services. Patient will arrange for transport home. No DC today per MD rounds.
[2022-06-17] MEDS: DULoxetine HCl 60 MG CAPSULE.DR PO (20:52)
[2022-06-17] MEDS: Phenytoin Sodium Extended 100 MG CAPSULE 400 MG PO (20:53)
[2022-06-17] MEDS: traZODone HCL 100 MG TABLET PO (20:53)
[2022-06-17 21:02] LABS: Glucose, Whole Blood 225 mg/dL (60-115)
[2022-06-18] MEDS: Morphine Sulfate 2 MG/ML CARTRIDGE IVPUSH ×4 (01:49→22:20)
[2022-06-18 03:17] VITALS: BP 127/73; PULSE 77; RESP 18; TEMP 36.7; O2SAT 96
[2022-06-18] MEDS: Gabapentin 400 MG CAPSULE PO ×4 (05:38→21:51)
[2022-06-18] MEDS: Omeprazole 20 MG CAPSULE.DR PO (05:38)
[2022-06-18 07:44] LABS: Glucose, Whole Blood 259 mg/dL (60-115)
[2022-06-18] MEDS: dexAMETHasone sod phosphate 4 MG/ML VIAL 6 MG IVPUSH (07:52)
[2022-06-18] MEDS: Torsemide 20 MG TABLET 40 MG PO (07:53)
[2022-06-18] MEDS: Phenytoin Sodium Extended 100 MG CAPSULE 300 MG PO (07:53)
[2022-06-18] MEDS: Empagliflozin 10 MG TABLET PO (07:53)
[2022-06-18] MEDS: Metoprolol Succinate ER 100 MG TAB.ER.24H PO ×2 (07:54→22:13)
[2022-06-18] MEDS: Isosorbide Mononitrate 60 MG TAB.ER.24H PO (07:55)
[2022-06-18] MEDS: Atorvastatin Calcium 80 MG TABLET PO (07:55)
[2022-06-18] MEDS: hydrOXYzine HCL 25 MG TABLET PO ×3 (07:55→21:51)
[2022-06-18] MEDS: guaiFENesin LA 600 MG TAB.ER.12H 1200 MG PO ×2 (07:55→21:52)
[2022-06-18] MEDS: DULoxetine HCl 30 MG CAPSULE.DR PO (07:55)
[2022-06-18] MEDS: QUEtiapine Fumarate 200 MG TABLET PO ×2 (07:56→21:51)
[2022-06-18] MEDS: Insulin Lispro 100 UNIT/ML 3 ML VIAL SUBCUT ×4 (07:56→21:58)
[2022-06-18] MEDS: Apixaban 5 MG TABLET PO ×2 (07:56→21:52)
[2022-06-18] MEDS: 0.9 % Sodium Chloride Flush 3 ML SYRINGE IVFLUSH ×3 (07:56→21:52)
[2022-06-18 08:00] VITALS: BP 137/61; PULSE 98; RESP 18; TEMP 36.6; O2SAT 97
[2022-06-18] MEDS: LORazepam 1 MG TABLET 2 MG PO (08:13)
--- NOTE | 2022-06-18 10:24 | MHC.CM.PN ---
Per ROUNDS discussion, Patient is still hypoxic with O2 and not yet medically cleared for dc. PT is recommending home with services and CM will continue to follow.
[2022-06-18 11:15] LABS: Glucose, Whole Blood 255 mg/dL (60-115)
[2022-06-18 11:40] VITALS: BP 119/64; PULSE 97; RESP 18; TEMP 36.6; O2SAT 93
--- NOTE | 2022-06-18 12:03 | HO.PM.IMPN ---
Subjective Subjective Date of Service: 06/18/22 Interval History: seen and examined this morning follow up for covid 19 hypoxic and requiring supplemental oxygen having cough Review of Systems Review of Systems: Yes all other systems are reviewed and are negative Constitutional Constitutional: Denies chills and Denies fever(s) Cardiovascular Cardiovascular: Denies chest pain and Denies palpitations Respiratory Respiratory: Reports cough Gastrointestinal Gastrointestinal: Denies abdominal pain, Denies nausea and Denies vomiting Endocrine Endocrine: Denies palpitations Physical Exam Vital Signs: Vital Signs: Last Vital Signs Temp 97.8 F 06/18/22 11:40 Pulse 97 06/18/22 11:40 Resp 18 06/18/22 11:40 BP 119/64 06/18/22 11:40 Pulse Ox 93 06/18/22 11:40 O2 Del Method 06/18/22 11:40 O2 Flow Rate 3 06/18/22 11:40 Oxygen Flow Rate 2 06/15/22 14:14 BMI result Body Mass Index 44.9 Const: General: no acute distress, alert and awake Nutritional Appearance: obese Orientation/consciousness: patient oriented x3 Resp: Other: diminished breath sounds Effort & Inspection: normal respiratory effort and able to speak in complete sentences Cardio: Rate: regular rate Heart sounds: S1 normal heart sound present and S2 normal heart sound present GI: Inspection: Yes obesity Palpation (GI): Soft to palpation and nontender Neuro: General: patient oriented x3 and CN's II-XI intact bilaterally Extrem: Other: trace leg edema Objective Data Active Medications Acetaminophen (Acetaminophen 325 Mg Tablet) 650 mg PO Q6H PRN PRN Reason: Pain, Mild (Pain Scale 1-3) Albuterol Sulfate (Albuterol Sulfate (0.083%) 2.5 Mg/3 Ml Vial.Neb) 2.5 mg INHALE Q2H PRN PRN Reason: Shortness of Breath/Wheezing Apixaban (Apixaban 5 Mg Tablet) 5 mg PO BID [facility] Last Admin: 06/18/22 07:56 Dose: 5 mg Documented By: LATASHA Atorvastatin Calcium (Atorvastatin Calcium 80 Mg Tablet) 80 mg PO DAILY [facility] Last Admin: 06/18/22 07:55 Dose: 80 mg Documented By: LATASHA Dexamethasone Sodium Phosphate (Dexamethasone Sod Phosphate 4 Mg/Ml Vial) 6 mg IVPUSH DAILY [facility] Stop: 06/26/22 09:01 Last Admin: 06/18/22 07:52 Dose: 6 mg Documented By: LATASHA Dextrose (Dextrose 50 % 25 Gm/50 Ml Syringe) 25 gm IVPUSH Q15M PRN; Protocol PRN Reason: per Hypoglycemia Standing Ord. Digoxin (Digoxin 0.125 Mg Tablet) 0.125 mg PO Q48H [facility] Last Admin: 06/15/22 22:45 Dose: 0.125 mg Documented By: DANIE Docusate Sodium (Docusate Sodium 100 Mg Capsule) 100 mg PO DAILY PRN PRN Reason: Constipation Duloxetine HCl (Duloxetine Hcl 30 Mg Capsule.) 30 mg PO DAILY [facility] Last Admin: 06/18/22 07:55 Dose: 30 mg Documented By: LATASHA Duloxetine HCl (Duloxetine Hcl 60 Mg Capsule.) 60 mg PO BEDTIME [facility] Last Admin: 06/17/22 20:52 Dose: 60 mg Documented By: ALEXIA Empagliflozin (Empagliflozin 10 Mg Tablet) 10 mg PO DAILY [facility] Last Admin: 06/18/22 07:53 Dose: 10 mg Documented By: LATASHA Fluticasone Propionate (Fluticasone Propionate Nasal 16 Gm [place]) 1 spray NOSTRIL-B DAILY [facility] Last Admin: 06/18/22 08:31 Dose: Not Given Documented By: LATASHA Non-Admin Reason: Patient Refused Gabapentin (Gabapentin 400 Mg Capsule) 400 mg PO 5XD [facility] Last Admin: 06/18/22 05:38 Dose: 400 mg Documented By: COTEMA Glucose (Glucose Gel 15 Gm Gel..Gram.) 15 gm PO Q15M PRN; Protocol PRN Reason: per Hypoglycemia Standing Ord. Guaifenesin (Guaifenesin 200 Mg/10 Ml 10 Ml Liquid) 10 ml PO Q4H PRN PRN Reason: Cough Last Admin: 06/16/22 20:19 Dose: 10 ml Documented By: TIAGO Guaifenesin (Guaifenesin La 600 Mg Tab.Er.12h) 1,200 mg PO BID [facility] Last Admin: 06/18/22 07:55 Dose: 1,200 mg Documented By: LATASHA Hydroxyzine HCl (Hydroxyzine Hcl 25 Mg Tablet) 25 mg PO TID [facility] Last Admin: 06/18/22 07:55 Dose: 25 mg Documented By: LATASHA Insulin Human Lispro (Insulin Lispro 100 Unit/Ml 3 Ml Vial) 0 unit SUBCUT QIDACHS [facility]; Protocol Last Admin: 06/18/22 07:56 Dose: 6 unit Documented By: LATASHA Isosorbide Mononitrate (Isosorbide Mononitrate 60 Mg Tab.Er.24h) 60 mg PO DAILY [facility]; Protocol Last Admin: 06/18/22 07:55 Dose: 60 mg Documented By: LATASHA Loperamide HCl (Loperamide Hcl 2 Mg Capsule) 2 mg PO Q4H PRN PRN Reason: Diarrhea Last Admin: 06/16/22 07:47 Dose: 2 mg Documented By: LOLIS Lorazepam (Lorazepam 1 Mg Tablet) 2 mg PO TID PRN PRN Reason: anxiety Last Admin: 06/18/22 08:13 Dose: 2 mg Documented By: LATASHA Metoprolol Succinate (Metoprolol Succinate Er 100 Mg Tab.Er.24h) 100 mg PO BID [facility]; Protocol Last Admin: 06/18/22 07:54 Dose: 100 mg Documented By: LATASHA Morphine Sulfate (Morphine Sulfate 2 Mg/Ml Cartridge) 2 mg IVPUSH Q4H PRN; Protocol PRN Reason: Pain, Severe (Pain Scale 7-10) Last Admin: 06/18/22 08:25 Dose: 2 mg Documented By: LATASHA Omeprazole (Omeprazole 20 Mg Capsule.Dr) 20 mg PO DAILY@0630 [facility] Last Admin: 06/18/22 05:38 Dose: 20 mg Documented By: COTSAMMY Oxycodone HCl (Oxycodone Hcl Immed Release 5 Mg Tablet) 5 mg PO BID PRN PRN Reason: severe pain Last Admin: 06/16/22 20:19 Dose: 5 mg Documented By: TIAGO Phenytoin Sodium (Phenytoin Sodium Extended 100 Mg Capsule) 300 mg PO DAILY@0730 [facility] Last Admin: 06/18/22 07:53 Dose: 300 mg Documented By: LATASHA Phenytoin Sodium (Phenytoin Sodium Extended 100 Mg Capsule) 400 mg PO BEDTIME [facility] Last Admin: 06/17/22 20:53 Dose: 400 mg Documented By: ALEXIA Quetiapine Fumarate (Quetiapine Fumarate 100 Mg Tablet) 100 mg PO DAILY PRN PRN Reason: anxiety Quetiapine Fumarate (Quetiapine Fumarate 200 Mg Tablet) 200 mg PO BID [facility] Last Admin: 06/18/22 07:56 Dose: 200 mg Documented By: LATASHA Sodium Chloride (0.9 % Sodium Chloride Flush 3 Ml Syringe) 3 ml IVFLUSH QSHIFT [facility] Last Admin: 06/18/22 07:56 Dose: 3 ml Documented By: LATASHA Torsemide (Torsemide 20 Mg Tablet) 40 mg PO DAILY [facility]; Protocol Last Admin: 06/18/22 07:53 Dose: 40 mg Documented By: LATASHA Trazodone HCl (Trazodone Hcl 100 Mg Tablet) 100 mg PO BEDTIME [facility] Last Admin: 06/17/22 20:53 Dose: 100 mg Documented By: WATSONJ Labs 06/16/22 07:30 06/17/22 06:40 Labs: Laboratory Results - last 24 hr 06/17/22 06/17/22 06/18/22 15:45 20:48 07:31 POC Glucose 238 H 225 H 259 H 06/18/22 11:11 POC Glucose 255 H Microbiology Microbiology Results: Microbiology 06/15/22 14:53 Blood Culture - Preliminary Blood - Venous No growth after 48 hours. 06/15/22 14:53 Blood Culture - Preliminary Blood - Venous No growth after 48 hours. Assessment and Plan (1) COVID-19 virus infection: Status: Acute Plan 61-year-old male with history of anxiety, mild intermittent asthma, persistent atrial fibrillation anticoagulated with Eliquis, hypertension, [id number] type 2 diabetes, history CVA, coronary artery disease, and morbid obesity with BMI greater than 46 to be observed for acute dehydration and weakness secondary to poor PO intake due to COVID-19. acute hypoxic respiratory failure related to COVID-19 with viral sepsis CXR negative for consolidation hypoxic -pt states that he is supposed to use oxygen at home, but he is noncompliant has been hypoxic, o2 sats drop to mid 80s off oxygen continue IV decadron unlikely to benefit from remdesivir as duration of symptoms >1week continue symptomatic management Tachycardia, hypotension r/t dehydration, not sepsis/septic shock PT eval for generalized weakness related to dehydration/COVID-19 acute mild dehydration renal function normal s/p IVF renal function at baseline LLQ pain CT negative for acute intra-abdominal abnormality likely related to COVID-19/diarrhea resolved persistent atrial fibrillation with RVR EKG showing AFib with RVR, rate 113, no ST/T-wave abnormalities suggestive of acute ischemia, no significant change compared to prior EKGs continue Eliquis for anticoagulation will increase metoprolol to 100 b.i.d. hold digoxin hyponatremia. Resolved likely pseudo hyponatremia secondary to hyperglycemia manage hyperglycemia follow BMP lactic acidosis secondary to metformin use, not severe sepsis type 2 diabetes metformin, lantus on hold ss, ada diet history of DVT continue Eliquis coronary artery disease/hyperlipidemia continue isosorbide, metoprolol seizure disorder-stable continue phenytoin diabetic neuropathy/chronic pain continue gabapentin continue home oxycodone depression/anxiety Continue quetiapine, trazodone, lorazepam, duloxetine chronic microcytic anemia-likely related to chronic disease H/H baseline morbid obesity bmi 44.9 contributing to respiratory issues DVT prophylaxis-on Eliquis Attending Dr. Arshad Full code patient requires ongoing inpatient hospitalization for management of COVID-19/hypoxia Time Spent With Patient Time: Total time managing care of this patient today ____ minutes. Quality Stroke Does the patient have a stroke diagnosis?: No VTE Prior VTE?: No VTE Risk Level:: Medical - moderate - high VTE Device Contraindication: Treatment Not Indicated VTE Drug Contraindication: N/A - Med Ordered
[2022-06-18 15:31] VITALS: BP 124/80; PULSE 111; RESP 18; TEMP 36.2; O2SAT 96
[2022-06-18 16:15] LABS: Glucose, Whole Blood 291 mg/dL (60-115)
[2022-06-18 18:52] VITALS: BP 121/57; PULSE 104; RESP 18; TEMP 36.4; O2SAT 92
[2022-06-18 19:41] LABS: Glucose, Whole Blood 250 mg/dL (60-115)
[2022-06-18] MEDS: Phenytoin Sodium Extended 100 MG CAPSULE 400 MG PO (21:51)
[2022-06-18] MEDS: DULoxetine HCl 60 MG CAPSULE.DR PO (21:52)
[2022-06-18] MEDS: traZODone HCL 100 MG TABLET PO (21:52)
[2022-06-18 23:31] VITALS: BP 130/63; PULSE 113; RESP 17; TEMP 36.9; O2SAT 95
[2022-06-19] MEDS: guaiFENesin 200 MG/10 ML 10 ML LIQUID PO ×4 (00:27→22:54)
[2022-06-19] MEDS: Morphine Sulfate 2 MG/ML CARTRIDGE IVPUSH ×5 (03:41→22:54)
[2022-06-19 03:44] VITALS: BP 136/61; PULSE 73; RESP 20; TEMP 36.6; O2SAT 94
[2022-06-19] MEDS: Omeprazole 20 MG CAPSULE.DR PO (05:04)
[2022-06-19] MEDS: Gabapentin 400 MG CAPSULE PO ×5 (05:04→22:53)
[2022-06-19 07:41] LABS: Glucose, Whole Blood 168 mg/dL (60-115)
[2022-06-19 07:45] VITALS: BP 124/60; PULSE 99; RESP 20; TEMP 36.1; O2SAT 94
[2022-06-19] MEDS: Metoprolol Succinate ER 100 MG TAB.ER.24H PO ×2 (08:04→22:53)
[2022-06-19] MEDS: Atorvastatin Calcium 80 MG TABLET PO (08:04)
[2022-06-19] MEDS: Isosorbide Mononitrate 60 MG TAB.ER.24H PO (08:05)
[2022-06-19] MEDS: QUEtiapine Fumarate 200 MG TABLET PO ×2 (08:05→22:53)
[2022-06-19] MEDS: Phenytoin Sodium Extended 100 MG CAPSULE 300 MG PO (08:05)
[2022-06-19] MEDS: DULoxetine HCl 30 MG CAPSULE.DR PO (08:05)
[2022-06-19] MEDS: Apixaban 5 MG TABLET PO ×2 (08:07→22:53)
[2022-06-19] MEDS: Empagliflozin 10 MG TABLET PO (08:07)
[2022-06-19] MEDS: guaiFENesin LA 600 MG TAB.ER.12H 1200 MG PO ×2 (08:07→22:52)
[2022-06-19] MEDS: Torsemide 20 MG TABLET 40 MG PO (08:07)
[2022-06-19] MEDS: hydrOXYzine HCL 25 MG TABLET PO ×3 (08:07→22:53)
[2022-06-19] MEDS: dexAMETHasone sod phosphate 4 MG/ML VIAL 6 MG IVPUSH (08:08)
[2022-06-19] MEDS: Insulin Lispro 100 UNIT/ML 3 ML VIAL SUBCUT ×4 (08:09→22:53)
[2022-06-19] MEDS: 0.9 % Sodium Chloride Flush 3 ML SYRINGE IVFLUSH ×3 (08:24→23:08)
[2022-06-19] MEDS: Albuterol Sulfate (0.083%) 2.5 MG/3 ML VIAL.NEB INHALE (09:05)
[2022-06-19 11:44] LABS: Glucose, Whole Blood 252 mg/dL (60-115)
[2022-06-19 12:00] VITALS: BP 100/51; PULSE 95; RESP 20; TEMP 36.1; O2SAT 96
--- NOTE | 2022-06-19 13:52 | HO.PM.IMPN ---
Subjective Subjective Date of Service: 06/19/22 Interval History: seen and examined this morning follow up for covid 19 had sob overnight, still with cough Review of Systems Review of Systems: Yes all other systems are reviewed and are negative Constitutional Constitutional: Denies chills and Denies fever(s) Cardiovascular Cardiovascular: Denies chest pain, Denies palpitations and Reports dyspnea Respiratory Respiratory: Reports cough and Reports dyspnea Gastrointestinal Gastrointestinal: Denies diarrhea, Denies nausea and Denies vomiting Endocrine Endocrine: Denies palpitations Physical Exam Vital Signs: Vital Signs: Last Vital Signs Temp 97.0 F 06/19/22 12:00 Pulse 95 06/19/22 12:00 Resp 20 06/19/22 12:00 BP 100/51 L 06/19/22 12:00 Pulse Ox 96 06/19/22 12:00 O2 Del Method 06/19/22 12:00 O2 Flow Rate 2 06/19/22 12:00 Oxygen Flow Rate 2 06/15/22 14:14 BMI result Body Mass Index 44.9 Const: General: no acute distress, alert and awake Nutritional Appearance: obese Orientation/consciousness: patient oriented x3 Resp: Other: diminished breath sounds Effort & Inspection: normal respiratory effort and able to speak in complete sentences Cardio: Rate: regular rate Heart sounds: S1 normal heart sound present and S2 normal heart sound present GI: Inspection: Yes obesity Palpation (GI): Soft to palpation and nontender Neuro: General: patient oriented x3 and CN's II-XI intact bilaterally Extrem: Other: trace leg edema Objective Data Active Medications Acetaminophen (Acetaminophen 325 Mg Tablet) 650 mg PO Q6H PRN PRN Reason: Pain, Mild (Pain Scale 1-3) Albuterol Sulfate (Albuterol Sulfate (0.083%) 2.5 Mg/3 Ml Vial.Neb) 2.5 mg INHALE Q2H PRN PRN Reason: Shortness of Breath/Wheezing Last Admin: 06/19/22 09:05 Dose: 2.5 mg Documented By: JENNIFER Apixaban (Apixaban 5 Mg Tablet) 5 mg PO BID [facility] Last Admin: 06/19/22 08:07 Dose: 5 mg Documented By: REJI Atorvastatin Calcium (Atorvastatin Calcium 80 Mg Tablet) 80 mg PO DAILY [facility] Last Admin: 06/19/22 08:04 Dose: 80 mg Documented By: REJI Dexamethasone Sodium Phosphate (Dexamethasone Sod Phosphate 4 Mg/Ml Vial) 6 mg IVPUSH DAILY [facility] Stop: 06/26/22 09:01 Last Admin: 06/19/22 08:08 Dose: 6 mg Documented By: REJI Dextrose (Dextrose 50 % 25 Gm/50 Ml Syringe) 25 gm IVPUSH Q15M PRN; Protocol PRN Reason: per Hypoglycemia Standing Ord. Digoxin (Digoxin 0.125 Mg Tablet) 0.125 mg PO Q48H [facility] Last Admin: 06/15/22 22:45 Dose: 0.125 mg Documented By: DANIE Docusate Sodium (Docusate Sodium 100 Mg Capsule) 100 mg PO DAILY PRN PRN Reason: Constipation Duloxetine HCl (Duloxetine Hcl 30 Mg Capsule.) 30 mg PO DAILY [facility] Last Admin: 06/19/22 08:05 Dose: 30 mg Documented By: REJI Duloxetine HCl (Duloxetine Hcl 60 Mg Capsule.) 60 mg PO BEDTIME [facility] Last Admin: 06/18/22 21:52 Dose: 60 mg Documented By: JERONIMO Empagliflozin (Empagliflozin 10 Mg Tablet) 10 mg PO DAILY [facility] Last Admin: 06/19/22 08:07 Dose: 10 mg Documented By: REJI Fluticasone Propionate (Fluticasone Propionate Nasal 16 Gm [place]) 1 spray NOSTRIL-B DAILY [facility] Last Admin: 06/19/22 10:28 Dose: Not Given Documented By: LEON Non-Admin Reason: Patient Refused Gabapentin (Gabapentin 400 Mg Capsule) 400 mg PO 5XD [facility] Last Admin: 06/19/22 10:42 Dose: 400 mg Documented By: REJI Glucose (Glucose Gel 15 Gm Gel..Gram.) 15 gm PO Q15M PRN; Protocol PRN Reason: per Hypoglycemia Standing Ord. Guaifenesin (Guaifenesin 200 Mg/10 Ml 10 Ml Liquid) 10 ml PO Q4H PRN PRN Reason: Cough Last Admin: 06/19/22 05:04 Dose: 10 ml Documented By: JERONIMO Guaifenesin (Guaifenesin La 600 Mg Tab.Er.12h) 1,200 mg PO BID [facility] Last Admin: 06/19/22 08:07 Dose: 1,200 mg Documented By: REJI Hydroxyzine HCl (Hydroxyzine Hcl 25 Mg Tablet) 25 mg PO TID [facility] Last Admin: 06/19/22 08:07 Dose: 25 mg Documented By: REJI Insulin Human Lispro (Insulin Lispro 100 Unit/Ml 3 Ml Vial) 0 unit SUBCUT QIDACHS [facility]; Protocol Last Admin: 06/19/22 11:45 Dose: 6 unit Documented By: REJI Isosorbide Mononitrate (Isosorbide Mononitrate 60 Mg Tab.Er.24h) 60 mg PO DAILY [facility]; Protocol Last Admin: 06/19/22 08:05 Dose: 60 mg Documented By: REJI Loperamide HCl (Loperamide Hcl 2 Mg Capsule) 2 mg PO Q4H PRN PRN Reason: Diarrhea Last Admin: 06/16/22 07:47 Dose: 2 mg Documented By: LOLIS Lorazepam (Lorazepam 1 Mg Tablet) 2 mg PO TID PRN PRN Reason: anxiety Last Admin: 06/18/22 08:13 Dose: 2 mg Documented By: BROPawel Metoprolol Succinate (Metoprolol Succinate Er 100 Mg Tab.Er.24h) 100 mg PO BID [facility]; Protocol Last Admin: 06/19/22 08:04 Dose: 100 mg Documented By: REJI Morphine Sulfate (Morphine Sulfate 2 Mg/Ml Cartridge) 2 mg IVPUSH Q4H PRN; Protocol PRN Reason: Pain, Severe (Pain Scale 7-10) Last Admin: 06/19/22 08:33 Dose: 2 mg Documented By: REJI Omeprazole (Omeprazole 20 Mg Capsule.) 20 mg PO DAILY@0630 [facility] Last Admin: 06/19/22 05:04 Dose: 20 mg Documented By: JERNOIMO Oxycodone HCl (Oxycodone Hcl Immed Release 5 Mg Tablet) 5 mg PO BID PRN PRN Reason: severe pain Last Admin: 06/16/22 20:19 Dose: 5 mg Documented By: TIAGO Phenytoin Sodium (Phenytoin Sodium Extended 100 Mg Capsule) 300 mg PO DAILY@0730 [facility] Last Admin: 06/19/22 08:05 Dose: 300 mg Documented By: REJI Phenytoin Sodium (Phenytoin Sodium Extended 100 Mg Capsule) 400 mg PO BEDTIME [facility] Last Admin: 06/18/22 21:51 Dose: 400 mg Documented By: JERONIMO Quetiapine Fumarate (Quetiapine Fumarate 100 Mg Tablet) 100 mg PO DAILY PRN PRN Reason: anxiety Quetiapine Fumarate (Quetiapine Fumarate 200 Mg Tablet) 200 mg PO BID [facility] Last Admin: 06/19/22 08:05 Dose: 200 mg Documented By: REJI Sodium Chloride (0.9 % Sodium Chloride Flush 3 Ml Syringe) 3 ml IVFLUSH QSHIFT [facility] Last Admin: 06/19/22 08:24 Dose: 3 ml Documented By: REJI Torsemide (Torsemide 20 Mg Tablet) 40 mg PO DAILY [facility]; Protocol Last Admin: 06/19/22 08:07 Dose: 40 mg Documented By: REJI Trazodone HCl (Trazodone Hcl 100 Mg Tablet) 100 mg PO BEDTIME [facility] Last Admin: 06/18/22 21:52 Dose: 100 mg Documented By: JERONIMO Labs 06/16/22 07:30 06/17/22 06:40 Labs: Laboratory Results - last 24 hr 06/18/22 06/18/22 06/19/22 16:07 19:24 07:29 POC Glucose 291 H 250 H 168 H 06/19/22 11:31 POC Glucose 252 H Assessment and Plan (1) COVID-19 virus infection: Status: Acute Plan 61-year-old male with history of anxiety, mild intermittent asthma, persistent atrial fibrillation anticoagulated with Eliquis, hypertension, [id number] type 2 diabetes, history CVA, coronary artery disease, and morbid obesity with BMI greater than 46 to be observed for acute dehydration and weakness secondary to poor PO intake due to COVID-19. acute hypoxic respiratory failure related to COVID-19 with viral sepsis CXR negative for consolidation hypoxic -pt states that he is supposed to use oxygen at home, but he is noncompliant - RT called all oxygen suppliers and none supply oxygen to him has been hypoxic, o2 sats drop to mid 80s off oxygen, there fore was started on IV decadron, continue D#3 unlikely to benefit from remdesivir as duration of symptoms >1week continue symptomatic management -breathing treatments, chest PT, mucolytics etc acute mild dehydration s/p IVF renal function at baseline LLQ pain CT negative for acute intra-abdominal abnormality likely related to COVID-19/diarrhea resolved persistent atrial fibrillation with RVR HR under better control continue Eliquis for anticoagulation will increase metoprolol to 100 b.i.d. hold digoxin hyponatremia. Resolved likely pseudo hyponatremia secondary to hyperglycemia manage hyperglycemia follow BMP lactic acidosis secondary to metformin use, not severe sepsis type 2 diabetes metformin, lantus on hold ss, ada diet history of DVT continue Eliquis coronary artery disease/hyperlipidemia continue isosorbide, metoprolol seizure disorder-stable continue phenytoin diabetic neuropathy/chronic pain continue gabapentin continue home oxycodone depression/anxiety Continue quetiapine, trazodone, lorazepam, duloxetine chronic microcytic anemia-likely related to chronic disease H/H baseline morbid obesity bmi 44.9 contributing to respiratory issues/hypoxia h/o raven noncompliant with cpap DVT prophylaxis-on Eliquis Attending Dr. De La Torre Full code patient requires ongoing inpatient hospitalization for management of COVID-19/hypoxia Time Spent With Patient Time: Total time managing care of this patient today ____ minutes. Quality Stroke Does the patient have a stroke diagnosis?: No VTE Prior VTE?: No VTE Risk Level:: Medical - moderate - high VTE Device Contraindication: Treatment Not Indicated VTE Drug Contraindication: N/A - Med Ordered
[2022-06-19 15:12] VITALS: BP 107/67; PULSE 99; RESP 20; TEMP 36.7; O2SAT 98
[2022-06-19 16:10] LABS: Glucose, Whole Blood 267 mg/dL (60-115)
[2022-06-19 19:03] VITALS: BP 117/69; PULSE 98; RESP 20; TEMP 36.7; O2SAT 94
[2022-06-19 19:38] LABS: Glucose, Whole Blood 249 mg/dL (60-115)
[2022-06-19] MEDS: Phenytoin Sodium Extended 100 MG CAPSULE 400 MG PO (22:52)
[2022-06-19] MEDS: traZODone HCL 100 MG TABLET PO (22:53)
[2022-06-19] MEDS: DULoxetine HCl 60 MG CAPSULE.DR PO (22:53)
[2022-06-19 23:32] VITALS: BP 96/49; PULSE 77; RESP 20; TEMP 37.2; O2SAT 97
[2022-06-20] VITALS (9 sets, daily range): BP systolic 86–118; BP diastolic 57–79; PULSE 80–106; RESP 16–20; TEMP 35.7–36.7; O2SAT 94–98
[2022-06-20] MEDS: Omeprazole 20 MG CAPSULE.DR PO (06:22)
[2022-06-20] MEDS: Gabapentin 400 MG CAPSULE PO ×5 (06:22→21:45)
[2022-06-20 07:35] LABS: Glucose, Whole Blood 263 mg/dL (60-115)
[2022-06-20 07:38] LABS: Anion Gap 17 (12-20); Blood Urea Nitrogen 14 mg/dL (9-16); C Reactive Protein 1.44 mg/dL (< or = 0.50); Calcium 8.5 mg/dL (8.4-10.2); Carbon Dioxide 27 mmol/L (22-29); Chloride 96 mmol/L (96-108); Creatinine Clr Calc Pharmacy 139.2; Estimated Glomerular Filt Rate > 60; Glucose Random 209 mg/dL (60-115); Lactate Dehydrogenase 235 U/L (118-273); Potassium 3.2 mmol/L (3.3-5.1); Sodium 137 mmol/L (135-145)
[2022-06-20 07:40] LABS: Ferritin 13 ng/mL (20-250)
[2022-06-20] MEDS: Insulin Lispro 100 UNIT/ML 3 ML VIAL SUBCUT ×4 (08:29→21:46)
[2022-06-20] MEDS: Atorvastatin Calcium 80 MG TABLET PO (08:30)
[2022-06-20] MEDS: Torsemide 20 MG TABLET 40 MG PO (08:30)
[2022-06-20] MEDS: DULoxetine HCl 30 MG CAPSULE.DR PO (08:31)
[2022-06-20] MEDS: Metoprolol Succinate ER 100 MG TAB.ER.24H PO (08:31)
[2022-06-20] MEDS: Apixaban 5 MG TABLET PO ×2 (08:31→21:45)
[2022-06-20] MEDS: Empagliflozin 10 MG TABLET PO (08:31)
[2022-06-20] MEDS: guaiFENesin LA 600 MG TAB.ER.12H 1200 MG PO ×2 (08:31→21:45)
[2022-06-20] MEDS: Isosorbide Mononitrate 60 MG TAB.ER.24H PO (08:32)
[2022-06-20] MEDS: hydrOXYzine HCL 25 MG TABLET PO ×3 (08:32→21:45)
[2022-06-20] MEDS: Phenytoin Sodium Extended 100 MG CAPSULE 300 MG PO (08:32)
[2022-06-20] MEDS: QUEtiapine Fumarate 200 MG TABLET PO ×2 (08:32→21:45)
[2022-06-20] MEDS: 0.9 % Sodium Chloride Flush 3 ML SYRINGE IVFLUSH ×2 (08:34→17:02)
[2022-06-20] MEDS: oxyCODONE HCl Immed Release 5 MG TABLET PO ×2 (08:50→15:26)
[2022-06-20] MEDS: dexAMETHasone sod phosphate 4 MG/ML VIAL 6 MG IVPUSH (09:25)
--- NOTE | 2022-06-20 11:16 | P.PNIM_ITS ---
Subjective Subjective Date of Service: 06/20/22 Interval History: seen and examined this morning follow up for covid 19 reports labored breathing although does not appear short of breath denies chest pain or palpitations no dizziness Review of Systems Review of Systems: Yes all other systems are reviewed and are negative Constitutional Constitutional: Denies chills and Denies fever(s) ENT Ears, Nose, Mouth, and Throat: Denies dizziness Cardiovascular Cardiovascular: Denies chest pain, Denies palpitations and Reports dyspnea Respiratory Respiratory: Denies cough and Reports dyspnea Gastrointestinal Gastrointestinal: Denies abdominal pain, Denies diarrhea, Denies nausea and D enies vomiting Neurologic Neurologic: Denies dizziness Endocrine Endocrine: Denies palpitations Physical Exam Vital Signs: Vital Signs: Last Vital Signs Temp 98.1 F 06/20/22 07:59 Pulse 84 06/20/22 08:50 Resp 18 06/20/22 08:50 BP 86/62 L 06/20/22 07:59 Pulse Ox 97 06/20/22 07:59 O2 Del Method 06/20/22 07:59 O2 Flow Rate 2 06/20/22 07:59 Oxygen Flow Rate 2 06/15/22 14:14 BMI result Body Mass Index 44.9 Const: General: cooperative, comfortable, alert and awake Nutritional Appearance: obese Orientation/consciousness: patient oriented x3 Resp: Other: dim at bases, scattered wheezing Effort & Inspection: normal respiratory effort and able to speak in complete sentences Cardio: Rate: regular rate Heart sounds: S1 normal heart sound present and S2 normal heart sound present GI: Inspection: No distended and Yes obesity Palpation (GI): Soft to palpation and nontender Skin: Other: right anterior diaz, chronic skin changes Neuro: General: patient oriented x3 and CN's II-XI intact bilaterally Extrem: Other: trace leg edema General: Yes no pedal edema Objective Data Active Medications Acetaminophen (Acetaminophen 325 Mg Tablet) 650 mg PO Q6H PRN PRN Reason: Pain, Mild (Pain Scale 1-3) Albuterol Sulfate (Albuterol Sulfate (0.083%) 2.5 Mg/3 Ml Vial.Neb) 2.5 mg INHALE Q2H PRN PRN Reason: Shortness of Breath/Wheezing Last Admin: 06/19/22 09:05 Dose: 2.5 mg Documented By: JENNIFER Apixaban (Apixaban 5 Mg Tablet) 5 mg PO BID [facility] Last Admin: 06/20/22 08:31 Dose: 5 mg Documented By: DIANA Atorvastatin Calcium (Atorvastatin Calcium 80 Mg Tablet) 80 mg PO DAILY [facility] Last Admin: 06/20/22 08:30 Dose: 80 mg Documented By: DIANA Dexamethasone Sodium Phosphate (Dexamethasone Sod Phosphate 4 Mg/Ml Vial) 6 mg IVPUSH DAILY [facility] Stop: 06/26/22 09:01 Last Admin: 06/20/22 09:25 Dose: 6 mg Documented By: DIANA Dextrose (Dextrose 50 % 25 Gm/50 Ml Syringe) 25 gm IVPUSH Q15M PRN; Protocol PRN Reason: per Hypoglycemia Standing Ord. Digoxin (Digoxin 0.125 Mg Tablet) 0.125 mg PO Q48H [facility] Last Admin: 06/15/22 22:45 Dose: 0.125 mg Documented By: DAENDTonia Docusate Sodium (Docusate Sodium 100 Mg Capsule) 100 mg PO DAILY PRN PRN Reason: Constipation Duloxetine HCl (Duloxetine Hcl 30 Mg Capsule.) 30 mg PO DAILY [facility] Last Admin: 06/20/22 08:31 Dose: 30 mg Documented By: DIANA Duloxetine HCl (Duloxetine Hcl 60 Mg Capsule.) 60 mg PO BEDTIME [facility] Last Admin: 06/19/22 22:53 Dose: 60 mg Documented By: JERONIMO Empagliflozin (Empagliflozin 10 Mg Tablet) 10 mg PO DAILY [facility] Last Admin: 06/20/22 08:31 Dose: 10 mg Documented By: DIANA Fluticasone Propionate (Fluticasone Propionate Nasal 16 Gm [place]) 1 spray NOSTRIL-B DAILY [facility] Last Admin: 06/20/22 09:04 Dose: Not Given Documented By: DIANA Non-Admin Reason: Patient Refused Gabapentin (Gabapentin 400 Mg Capsule) 400 mg PO 5XD [facility] Last Admin: 06/20/22 10:39 Dose: 400 mg Documented By: DIANA Glucose (Glucose Gel 15 Gm Gel..Gram.) 15 gm PO Q15M PRN; Protocol PRN Reason: per Hypoglycemia Standing Ord. Guaifenesin (Guaifenesin 200 Mg/10 Ml 10 Ml Liquid) 10 ml PO Q4H PRN PRN Reason: Cough Last Admin: 06/19/22 22:54 Dose: 10 ml Documented By: JERONIMO Guaifenesin (Guaifenesin La 600 Mg Tab.Er.12h) 1,200 mg PO BID [facility] Last Admin: 06/20/22 08:31 Dose: 1,200 mg Documented By: DIANA Hydroxyzine HCl (Hydroxyzine Hcl 25 Mg Tablet) 25 mg PO TID [facility] Last Admin: 06/20/22 08:32 Dose: 25 mg Documented By: DIANA Insulin Human Lispro (Insulin Lispro 100 Unit/Ml 3 Ml Vial) 0 unit SUBCUT QIDAC [facility]; Protocol Last Admin: 06/20/22 08:29 Dose: 6 unit Documented By: DIANA Isosorbide Mononitrate (Isosorbide Mononitrate 60 Mg Tab.Er.24h) 60 mg PO DAILY [facility]; Protocol Last Admin: 06/20/22 08:32 Dose: 60 mg Documented By: DIANA Loperamide HCl (Loperamide Hcl 2 Mg Capsule) 2 mg PO Q4H PRN PRN Reason: Diarrhea Last Admin: 06/16/22 07:47 Dose: 2 mg Documented By: LOLIS Lorazepam (Lorazepam 1 Mg Tablet) 2 mg PO TID PRN PRN Reason: anxiety Last Admin: 06/18/22 08:13 Dose: 2 mg Documented By: LATASHA Omeprazole (Omeprazole 20 Mg Capsule.Dr) 20 mg PO DAILY@0630 [facility] Last Admin: 06/20/22 06:22 Dose: 20 mg Documented By: JERONIMO Oxycodone HCl (Oxycodone Hcl Immed Release 5 Mg Tablet) 5 mg PO BID PRN PRN Reason: severe pain Last Admin: 06/20/22 08:50 Dose: 5 mg Documented By: DIANA Phenytoin Sodium (Phenytoin Sodium Extended 100 Mg Capsule) 300 mg PO DAILY@0730 [facility] Last Admin: 06/20/22 08:32 Dose: 300 mg Documented By: DIANA Phenytoin Sodium (Phenytoin Sodium Extended 100 Mg Capsule) 400 mg PO BEDTIME [facility] Last Admin: 06/19/22 22:52 Dose: 400 mg Documented By: JERONIMO Quetiapine Fumarate (Quetiapine Fumarate 100 Mg Tablet) 100 mg PO DAILY PRN PRN Reason: anxiety Quetiapine Fumarate (Quetiapine Fumarate 200 Mg Tablet) 200 mg PO BID [facility] Last Admin: 06/20/22 08:32 Dose: 200 mg Documented By: DIANA Sodium Chloride (0.9 % Sodium Chloride Flush 3 Ml Syringe) 3 ml IVFLUSH QSHIFT [facility] Last Admin: 06/20/22 08:34 Dose: 3 ml Documented By: DIANA Torsemide (Torsemide 20 Mg Tablet) 40 mg PO DAILY [facility]; Protocol Last Admin: 06/20/22 08:30 Dose: 40 mg Documented By: DIANA Trazodone HCl (Trazodone Hcl 100 Mg Tablet) 100 mg PO BEDTIME [facility] Last Admin: 06/19/22 22:53 Dose: 100 mg Documented By: JERONIMO Labs 06/16/22 07:30 06/20/22 06:26 Labs: Laboratory Results - last 24 hr 06/19/22 06/19/22 06/19/22 11:31 16:05 19:33 Anion Gap Estim Creat Clear Calc Estimated GFR POC Glucose 252 H 267 H 249 H Random Glucose Calcium Ferritin Lactate Dehydrogenase C-Reactive Protein 06/20/22 06/20/22 06:26 07:21 Anion Gap 17 Estim Creat Clear Calc 139.2 Estimated GFR > 60 POC Glucose 263 H Random Glucose 209 H Calcium 8.5 Ferritin 13 L Lactate Dehydrogenase 235 C-Reactive Protein 1.44 H Assessment and Plan (1) COVID-19 virus infection: Status: Acute Plan 61-year-old male with history of anxiety, mild intermittent asthma, persistent atrial fibrillation anticoagulated with Eliquis, hypertension, non-insulin- dependent type 2 diabetes, history CVA, coronary artery disease, and morbid obesity with BMI greater than 46 to be observed for acute dehydration and weakness secondary to poor PO intake due to COVID-19. acute asthma exacerbation will change decadron to solu-medrol add scheduled breathing treatments & continue prn acute hypoxic respiratory failure related to COVID-19 with viral sepsis CXR negative for consolidation hypoxic -pt states that he is supposed to use oxygen at home, but he doesnt use it however RT called all oxygen suppliers and none supply oxygen to him has been hypoxic, o2 sats drop to mid 80s off oxygen, therefore was started on IV decadron, received 4 doses, will change to iv solu medrol for asthma as above unlikely to benefit from remdesivir as duration of symptoms >1week continue symptomatic management -breathing treatments, chest PT, IS etc hypokalemia replace and follow persistent atrial fibrillation with RVR HR under better control but bp low today - may not be able to tolerate increase in BB will decrease metoprolol back to previous dose 75 bid and resume digoxin continue Eliquis for anticoagulation acute mild dehydration resolved. s/p IVF. renal function at baseline hyponatremia. Resolved likely pseudo hyponatremia secondary to hyperglycemia manage hyperglycemia follow BMP LLQ pain.resolved CT negative for acute intra-abdominal abnormality likely related to COVID-19/diarrhea lactic acidosis secondary to metformin use, not severe sepsis type 2 diabetes metformin, lantus on hold ss, ada diet history of DVT continue Eliquis coronary artery disease/hyperlipidemia continue isosorbide, metoprolol seizure disorder-stable continue phenytoin diabetic neuropathy/chronic pain continue gabapentin continue home oxycodone depression/anxiety Continue quetiapine, trazodone, lorazepam, duloxetine chronic microcytic anemia-likely related to chronic disease H/H baseline morbid obesity bmi 44.9 contributing to respiratory issues/hypoxia h/o raven noncompliant with cpap DVT prophylaxis-on Eliquis Attending Dr. Parra Full code patient requires ongoing inpatient hospitalization for management of COVID- 19/hypoxia Time Spent With Patient Time: Total time managing care of this patient today ____ minutes. Quality Stroke Does the patient have a stroke diagnosis?: No VTE Prior VTE?: No VTE Risk Level:: Medical - moderate - high VTE Device Contraindication: Treatment Not Indicated VTE Drug Contraindication: N/A - Med Ordered
[2022-06-20 11:24] LABS: Glucose, Whole Blood 234 mg/dL (60-115)
[2022-06-20] MEDS: Potassium Chloride Packet 20 MEQ PACKET 40 MEQ PO (12:03)
[2022-06-20] MEDS: 0.9 % Sodium Chloride 500 ML IV ×2 (12:25→13:59)
--- NOTE | 2022-06-20 13:25 | ECG_ITS ---
Test Reason : chest pain Blood Pressure : / mmHG Vent. Rate : 093 BPM Atrial Rate : 000 BPM P-R Int : 000 ms QRS Dur : 158 ms QT Int : 446 ms P-R-T Axes : 000 -82 014 degrees QTc Int : 554 ms Atrial fibrillation Left axis deviation Right bundle branch block Inferior infarct (cited on or before 24-MAR-2020) Abnormal ECG When compared with ECG of 15-JUN-2022 14:21, Questionable change in initial forces of Inferior leads Referred By: Vania Garcia Electronically Signed By:NANCY HOLT MD
[2022-06-20] MEDS: Lidocaine 4 % Patch ADH..PATCH 1 PATCH TRANSDERMA (14:00)
[2022-06-20 14:12] LABS: Troponin-I High Sensitivity 10.6 ng/L (<3.5-35.0)
[2022-06-20] MEDS: Acetaminophen 325 MG TABLET 650 MG PO (15:25)
[2022-06-20 16:18] LABS: Glucose, Whole Blood 304 mg/dL (60-115)
[2022-06-20] MEDS: Lactated Ringers 1,000 ML 80 ML IVCONT (18:31)
[2022-06-20] MEDS: Morphine Sulfate 2 MG/ML CARTRIDGE 4 MG IVPUSH (18:37)
--- NOTE | 2022-06-20 19:17 | PC.NURSE ---
PATIENT BP LOW OVERNIGHT AND INTO MORNING, MD AWARE. PATIENT MOVED TO RECLINER IN AM AND WITH TWO ASSIST. PATIENT COMPLAINED OF LIGHTHEADEDNESS THAT RESOLVED SHORTLY AFTER REST. BP CHECKED, LOW BP NOTED. PA AWARE. 250 BOLUS OF A 500ML BAG OF NS GIVEN PER PA ORDER. SEE EMAR. LOW BP REMAINEDAFTER INFUSION. SECOND 250ML BOLUS OF 500ML BAG GIVEN PER PA ORDER. NEW ONSET CHEST PAIN, WORSENING WITH BREATH. EKG AND TROPONIN ORDERED. EKG SIMILAR TO PRIOR EKG PER PA ASSESSMENT, TROPONIN NEGATIVE. BP REMAINED LOW, 500ML NS BOLUS GIVEN PER PA ORDER, SEE EMAR. LIDOCAINE PATCH APPLIED TO LEFT UPPER CHEST WITH NO EFFECT, SEE EMAR. OXYCODONE 5MG WITH 325 TYLENOL GIVEN FOR PERSISTANT CHEST PAIN, PER PA ORDER. SEE EMAR. PAIN GOING FROM 02/13 TO 8. MORPHINE ORDER PLACED PER MD. 4MG IVP MORPHINE GIVEN, PENDING RESULTS. SEE EMAR. PATIENT UPDATED ON CURRENT HEALTH STATUS.
[2022-06-20 19:30] LABS: Glucose, Whole Blood 258 mg/dL (60-115)
[2022-06-20] MEDS: traZODone HCL 100 MG TABLET PO (21:45)
[2022-06-20] MEDS: Phenytoin Sodium Extended 100 MG CAPSULE 400 MG PO (21:46)
[2022-06-20] MEDS: methylPREDNISolone Sod Succ 40 MG/ML VIAL IVPUSH (21:46)
[2022-06-20] MEDS: DULoxetine HCl 60 MG CAPSULE.DR PO (21:46)
[2022-06-21] VITALS (10 sets, daily range): BP systolic 100–116; BP diastolic 55–82; PULSE 76–103; RESP 16–20; TEMP 35.8–36.7; O2SAT 94–97
[2022-06-21] MEDS: 0.9 % Sodium Chloride Flush 3 ML SYRINGE IVFLUSH ×2 (00:27→08:19)
[2022-06-21] MEDS: Morphine Sulfate 2 MG/ML CARTRIDGE 4 MG IVPUSH ×4 (00:29→21:13)
[2022-06-21] MEDS: Omeprazole 20 MG CAPSULE.DR PO (05:43)
[2022-06-21] MEDS: Gabapentin 400 MG CAPSULE PO ×5 (05:43→20:56)
[2022-06-21 07:11] LABS: Anion Gap 12 (12-20); Blood Urea Nitrogen 13 mg/dL (9-16); Calcium 8.1 mg/dL (8.4-10.2); Carbon Dioxide 32 mmol/L (22-29); Chloride 96 mmol/L (96-108); Creatinine Clr Calc Pharmacy 154.8; Estimated Glomerular Filt Rate > 60; Glucose Random 257 mg/dL (60-115); Potassium 3.5 mmol/L (3.3-5.1); Sodium 136 mmol/L (135-145)
[2022-06-21 07:19] LABS: Hematocrit 31.9 % (42.0-52.0); Hemoglobin 9.3 g/dl (14.0-18.0); Mean Corpuscular HGB Conc 29.2 g/dl (31.0-36.0); Mean Corpuscular Hemoglobin 22.2 pg (27.0-33.0); Mean Corpuscular Volume 76.3 fL (80.0-98.0); Mean Platelet Volume 10.8 fL (9.4-12.4); Platelet Count 269 X10*3/uL (160-400); Red Blood Count 4.18 X10*6/uL (4.60-5.80); White Blood Count 5.3 X10*3/uL (4.8-10.8)
[2022-06-21 07:31] LABS: Glucose, Whole Blood 224 mg/dL (60-115)
[2022-06-21] MEDS: Lactated Ringers 1,000 ML 80 ML IVCONT ×2 (08:09→20:58)
[2022-06-21] MEDS: DULoxetine HCl 30 MG CAPSULE.DR PO (08:10)
[2022-06-21] MEDS: Phenytoin Sodium Extended 100 MG CAPSULE 300 MG PO (08:10)
[2022-06-21] MEDS: Empagliflozin 10 MG TABLET PO (08:10)
[2022-06-21] MEDS: Apixaban 5 MG TABLET PO ×2 (08:10→20:57)
[2022-06-21] MEDS: Atorvastatin Calcium 80 MG TABLET PO (08:11)
[2022-06-21] MEDS: guaiFENesin LA 600 MG TAB.ER.12H 1200 MG PO ×2 (08:11→20:56)
[2022-06-21] MEDS: hydrOXYzine HCL 25 MG TABLET PO ×3 (08:11→20:56)
[2022-06-21] MEDS: QUEtiapine Fumarate 200 MG TABLET PO ×2 (08:11→20:57)
[2022-06-21] MEDS: Metoprolol Succinate ER 25 MG TAB.ER.24H 75 MG PO (08:12)
[2022-06-21] MEDS: Insulin Lispro 100 UNIT/ML 3 ML VIAL SUBCUT ×4 (08:19→20:57)
[2022-06-21] MEDS: methylPREDNISolone Sod Succ 40 MG/ML VIAL IVPUSH ×2 (08:20→20:56)
[2022-06-21] MEDS: Lidocaine 4 % Patch ADH..PATCH 1 PATCH TRANSDERMA (08:21)
--- NOTE | 2022-06-21 10:32 | MHC.CM.PN ---
Per ROUNDS discussion, Patient is not yet medically cleared for dc (IV Solu Medrol, IV Morphine today); PT is recommending home with services and CM will continue to follow.
[2022-06-21] MEDS: Fluticasone Propionate Nasal 16 GM SPRAY 1 SPRAY NOSTRIL-B (10:57)
[2022-06-21 11:16] LABS: Glucose, Whole Blood 263 mg/dL (60-115)
--- NOTE | 2022-06-21 12:59 | P.PNIM_ITS ---
Subjective Subjective Date of Service: 06/21/22 Interval History: seen and examined this morning follow up for covid 19 reports labored breathing although does not appear short of breath denies chest pain or palpitations no dizziness Review of Systems Review of Systems: Yes all other systems are reviewed and are negative Constitutional Constitutional: Denies chills and Denies fever(s) ENT Ears, Nose, Mouth, and Throat: Denies dizziness Cardiovascular Cardiovascular: Denies chest pain, Denies palpitations and Reports dyspnea Respiratory Respiratory: Denies cough and Reports dyspnea Gastrointestinal Gastrointestinal: Denies abdominal pain, Denies diarrhea, Denies nausea and D enies vomiting Neurologic Neurologic: Denies dizziness Endocrine Endocrine: Denies palpitations Physical Exam Vital Signs: Vital Signs: Last Vital Signs Temp 97.2 F 06/21/22 11:47 Pulse 85 06/21/22 11:47 Resp 20 06/21/22 11:47 BP 100/59 L 06/21/22 11:47 Pulse Ox 97 06/21/22 11:47 O2 Del Method 06/21/22 11:47 O2 Flow Rate 2 06/21/22 03:29 Oxygen Flow Rate 2 06/15/22 14:14 BMI result Body Mass Index 44.9 Appearing in no acute distress lung sounds are clear to auscultation heart regular rate rhythm, clear S1, S2 positive bowel sounds, abdomen is soft, nontender neuro patient is alert x3, no focal deficits Objective Data Active Medications Acetaminophen (Acetaminophen 325 Mg Tablet) 650 mg PO Q6H PRN PRN Reason: Pain, Mild (Pain Scale 1-3) Last Admin: 06/20/22 15:25 Dose: 650 mg Documented By: DIANA Albuterol Sulfate (Albuterol Sulfate (0.083%) 2.5 Mg/3 Ml Vial.Neb) 2.5 mg INHALE Q2H PRN PRN Reason: Shortness of Breath/Wheezing Last Admin: 06/19/22 09:05 Dose: 2.5 mg Documented By: JENNIFER Apixaban (Apixaban 5 Mg Tablet) 5 mg PO BID [facility] Last Admin: 06/21/22 08:10 Dose: 5 mg Documented By: REGINALD Atorvastatin Calcium (Atorvastatin Calcium 80 Mg Tablet) 80 mg PO DAILY [facility] Last Admin: 06/21/22 08:11 Dose: 80 mg Documented By: REGINALD Albuterol Sulfate 2.5 mg/ (Ipratropium [place] 0.5 mg) 0 mg INHALE RQ6H WHILE AWAKE [facility] Last Admin: 06/21/22 08:04 Dose: 1 each Documented By: DOROTHY Dextrose (Dextrose 50 % 25 Gm/50 Ml Syringe) 25 gm IVPUSH Q15M PRN; Protocol PRN Reason: per Hypoglycemia Standing Ord. Digoxin (Digoxin 0.125 Mg Tablet) 0.125 mg PO Q48H [facility] Last Admin: 06/15/22 22:45 Dose: 0.125 mg Documented By: DANIE Docusate Sodium (Docusate Sodium 100 Mg Capsule) 100 mg PO DAILY PRN PRN Reason: Constipation Duloxetine HCl (Duloxetine Hcl 30 Mg Capsule.) 30 mg PO DAILY [facility] Last Admin: 06/21/22 08:10 Dose: 30 mg Documented By: REGINALD Duloxetine HCl (Duloxetine Hcl 60 Mg Capsule.) 60 mg PO BEDTIME [facility] Last Admin: 06/20/22 21:46 Dose: 60 mg Documented By: TIAGO Empagliflozin (Empagliflozin 10 Mg Tablet) 10 mg PO DAILY [facility] Last Admin: 06/21/22 08:10 Dose: 10 mg Documented By: REGINALD Fluticasone Propionate (Fluticasone Propionate Nasal 16 Gm [place]) 1 spray NOSTRIL-B DAILY [facility] Last Admin: 06/21/22 10:57 Dose: 1 spray Documented By: REGINALD Gabapentin (Gabapentin 400 Mg Capsule) 400 mg PO 5XD [facility] Last Admin: 06/21/22 10:52 Dose: 400 mg Documented By: REGINALD Glucose (Glucose Gel 15 Gm Gel..Gram.) 15 gm PO Q15M PRN; Protocol PRN Reason: per Hypoglycemia Standing Ord. Guaifenesin (Guaifenesin 200 Mg/10 Ml 10 Ml Liquid) 10 ml PO Q4H PRN PRN Reason: Cough Last Admin: 06/19/22 22:54 Dose: 10 ml Documented By: JERONIMO Guaifenesin (Guaifenesin La 600 Mg Tab.Er.12h) 1,200 mg PO BID [facility] Last Admin: 06/21/22 08:11 Dose: 1,200 mg Documented By: REGINALD Hydroxyzine HCl (Hydroxyzine Hcl 25 Mg Tablet) 25 mg PO TID [facility] Last Admin: 06/21/22 08:11 Dose: 25 mg Documented By: REGINALD Lactated Ringer's (Lr) 1,000 mls @ 80 mls/hr IVCONT .[id number] [facility] Last Admin: 06/21/22 08:09 Dose: 80 mls/hr Documented By: REGINALD Insulin Human Lispro (Insulin Lispro 100 Unit/Ml 3 Ml Vial) 0 unit SUBCUT QIDACHS [facility]; Protocol Last Admin: 06/21/22 12:22 Dose: 6 unit Documented By: REGINALD Isosorbide Mononitrate (Isosorbide Mononitrate 60 Mg Tab.Er.24h) 60 mg PO DAILY [facility]; Protocol Last Admin: 06/20/22 08:32 Dose: 60 mg Documented By: DIANA Lidocaine (Lidocaine 4 % Patch Adh..Patch) 1 patch TRANSDERMA DAILY [facility]; Protocol Last Admin: 06/21/22 08:21 Dose: 1 patch Documented By: REGINALD Loperamide HCl (Loperamide Hcl 2 Mg Capsule) 2 mg PO Q4H PRN PRN Reason: Diarrhea Last Admin: 06/16/22 07:47 Dose: 2 mg Documented By: LOLIS Lorazepam (Lorazepam 1 Mg Tablet) 2 mg PO TID PRN PRN Reason: anxiety Last Admin: 06/18/22 08:13 Dose: 2 mg Documented By: LATASHA Methylprednisolone Sodium Succinate (Methylprednisolone Sod Succ 40 Mg/Ml Vial) 40 mg IVPUSH Q12H [facility] Last Admin: 06/21/22 08:20 Dose: 40 mg Documented By: REGINALD Metoprolol Succinate (Metoprolol Succinate Er 25 Mg Tab.Er.24h) 75 mg PO BID [facility]; Protocol Last Admin: 06/21/22 08:12 Dose: 75 mg Documented By: REGINALD Morphine Sulfate (Morphine Sulfate 2 Mg/Ml Cartridge) 4 mg IVPUSH Q4H PRN; Pr otocol PRN Reason: Pain, Severe (Pain Scale 7-10) Last Admin: 06/21/22 08:50 Dose: 4 mg Documented By: REGINALD Omeprazole (Omeprazole 20 Mg Capsule.Dr) 20 mg PO DAILY@0630 [facility] Last Admin: 06/21/22 05:43 Dose: 20 mg Documented By: ISAI Oxycodone HCl (Oxycodone Hcl Immed Release 5 Mg Tablet) 5 mg PO BID PRN PRN Reason: severe pain Last Admin: 06/20/22 15:26 Dose: 5 mg Documented By: DIANA Phenytoin Sodium (Phenytoin Sodium Extended 100 Mg Capsule) 300 mg PO DAILY@0730 [facility] Last Admin: 06/21/22 08:10 Dose: 300 mg Documented By: REGINALD Phenytoin Sodium (Phenytoin Sodium Extended 100 Mg Capsule) 400 mg PO BEDTIME [facility] Last Admin: 06/20/22 21:46 Dose: 400 mg Documented By: TIAGO Quetiapine Fumarate (Quetiapine Fumarate 100 Mg Tablet) 100 mg PO DAILY PRN PRN Reason: anxiety Quetiapine Fumarate (Quetiapine Fumarate 200 Mg Tablet) 200 mg PO BID [facility] Last Admin: 06/21/22 08:11 Dose: 200 mg Documented By: REGINALD Sodium Chloride (0.9 % Sodium Chloride Flush 3 Ml Syringe) 3 [facility] Last Admin: 06/21/22 08:19 Dose: 3 ml Documented By: REGINALD Torsemide (Torsemide 20 Mg Tablet) 40 mg PO DAILY [facility]; Protocol Last Admin: 06/20/22 08:30 Dose: 40 mg Documented By: DIANA Trazodone HCl (Trazodone Hcl 100 Mg Tablet) 100 mg PO BEDTIME [facility] Last Admin: 06/20/22 21:45 Dose: 100 mg Documented By: TIAGO Labs 06/21/22 06:28 06/21/22 06:28 Labs: Laboratory Results - last 24 hr 06/20/22 06/20/22 06/20/22 13:44 16:13 19:25 MCV MCH MCHC RDW Plt Count MPV Absolute Nucleated RBC Nucleated RBC % (auto) Anion Gap Estim Creat Clear Calc Estimated GFR POC Glucose 304 H 258 H Random Glucose Calcium Troponin I High Sens 10.6 D 06/21/22 06/21/22 06/21/22 06:28 06:28 07:26 MCV 76.3 L MCH 22.2 L MCHC 29.2 L RDW 18.0 H Plt Count 269 MPV 10.8 Absolute Nucleated RBC 0.000 Nucleated RBC % (auto) 0.0 Anion Gap 12 Estim Creat Clear Calc 154.8 Estimated GFR > 60 POC Glucose 224 H Random Glucose 257 H Calcium 8.1 L Troponin I High Sens 06/21/22 10:53 MCV MCH MCHC RDW Plt Count MPV Absolute Nucleated RBC Nucleated RBC % (auto) Anion Gap Estim Creat Clear Calc Estimated GFR POC Glucose 263 H Random Glucose Calcium Troponin I High Sens Microbiology Microbiology Results: Microbiology 06/15/22 14:53 Blood Culture - Final Blood - Venous No growth after 5 days. 06/15/22 14:53 Blood Culture - Final Blood - Venous No growth after 5 days. Assessment and Plan (1) COVID-19 virus infection: Status: Acute Plan 61-year-old male with history of anxiety, mild intermittent asthma, persistent atrial fibrillation anticoagulated with Eliquis, hypertension, [id number] type 2 diabetes, history CVA, coronary artery disease, and morbid obesity with BMI greater than 46 to be observed for acute dehydration and weakness secondary to poor PO intake due to COVID-19. acute asthma exacerbation will change decadron to solu-medrol add scheduled breathing treatments & continue prn acute hypoxic respiratory failure related to COVID-19 with viral sepsis CXR negative for consolidation hypoxic -pt states that he is supposed to use oxygen at home, but he doesnt use it however RT called all oxygen suppliers and none supply oxygen to him has been hypoxic, o2 sats drop to mid 80s off oxygen, therefore was started on IV decadron, received 4 doses, will change to iv solu medrol for asthma as above unlikely to benefit from remdesivir as duration of symptoms >1week continue symptomatic management -breathing treatments, chest PT, IS etc hypokalemia replace and follow persistent atrial fibrillation with RVR HR under better control but bp low today - may not be able to tolerate increase in BB will decrease metoprolol back to previous dose 75 bid and resume digoxin continue Eliquis for anticoagulation acute mild dehydration resolved. s/p IVF. renal function at baseline hyponatremia. Resolved likely pseudo hyponatremia secondary to hyperglycemia manage hyperglycemia follow BMP LLQ pain.resolved CT negative for acute intra-abdominal abnormality likely related to COVID-19/diarrhea lactic acidosis secondary to metformin use, not severe sepsis type 2 diabetes metformin, lantus on hold ss, ada diet history of DVT continue Eliquis coronary artery disease/hyperlipidemia continue isosorbide, metoprolol seizure disorder-stable continue phenytoin diabetic neuropathy/chronic pain continue gabapentin continue home oxycodone depression/anxiety Continue quetiapine, trazodone, lorazepam, duloxetine chronic microcytic anemia-likely related to chronic disease H/H baseline morbid obesity bmi 44.9 contributing to respiratory issues/hypoxia h/o raven noncompliant with cpap DVT prophylaxis-on [place] Attending Dr. Arshad Full code patient requires ongoing inpatient hospitalization for management of COVID- 19/hypoxia Time Spent With Patient Time: Total time managing care of this patient today ____ minutes. Quality Stroke Does the patient have a stroke diagnosis?: No VTE Prior VTE?: No VTE Risk Level:: Medical - moderate - high VTE Device Contraindication: Treatment Not Indicated VTE Drug Contraindication: N/A - Med Ordered
[2022-06-21] MEDS: oxyCODONE HCl Immed Release 5 MG TABLET PO (13:36)
[2022-06-21 16:04] LABS: Glucose, Whole Blood 245 mg/dL (60-115)
[2022-06-21 20:16] LABS: Glucose, Whole Blood 224 mg/dL (60-115)
[2022-06-21] MEDS: Phenytoin Sodium Extended 100 MG CAPSULE 400 MG PO (20:56)
[2022-06-21] MEDS: DULoxetine HCl 60 MG CAPSULE.DR PO (20:56)
[2022-06-21] MEDS: traZODone HCL 100 MG TABLET PO (20:57)
[2022-06-21] MEDS: Digoxin 0.125 MG TABLET PO (22:02)
[2022-06-22] VITALS (11 sets, daily range): BP systolic 114–135; BP diastolic 68–93; PULSE 75–113; RESP 14–20; TEMP 36.2–37.2; O2SAT 3–98
[2022-06-22] MEDS: Gabapentin 400 MG CAPSULE PO ×5 (06:08→21:51)
[2022-06-22] MEDS: Omeprazole 20 MG CAPSULE.DR PO (06:08)
[2022-06-22] MEDS: oxyCODONE HCl Immed Release 5 MG TABLET PO (06:13)
[2022-06-22] MEDS: Atorvastatin Calcium 80 MG TABLET PO (07:51)
[2022-06-22] MEDS: hydrOXYzine HCL 25 MG TABLET PO ×3 (07:52→21:51)
[2022-06-22] MEDS: QUEtiapine Fumarate 200 MG TABLET PO ×2 (07:52→21:52)
[2022-06-22] MEDS: methylPREDNISolone Sod Succ 40 MG/ML VIAL IVPUSH (07:52)
[2022-06-22] MEDS: Apixaban 5 MG TABLET PO ×2 (07:52→21:51)
[2022-06-22] MEDS: DULoxetine HCl 30 MG CAPSULE.DR PO (07:52)
[2022-06-22] MEDS: Empagliflozin 10 MG TABLET PO (07:52)
[2022-06-22] MEDS: Phenytoin Sodium Extended 100 MG CAPSULE 300 MG PO (07:52)
[2022-06-22] MEDS: guaiFENesin LA 600 MG TAB.ER.12H 1200 MG PO ×2 (07:52→21:51)
[2022-06-22] MEDS: 0.9 % Sodium Chloride Flush 3 ML SYRINGE IVFLUSH ×2 (07:53→21:52)
[2022-06-22 07:55] LABS: Glucose, Whole Blood 273 mg/dL (60-115)
[2022-06-22] MEDS: Insulin Lispro 100 UNIT/ML 3 ML VIAL SUBCUT ×4 (07:58→21:52)
[2022-06-22] MEDS: Lidocaine 4 % Patch ADH..PATCH 1 PATCH TRANSDERMA (07:58)
[2022-06-22] MEDS: Fluticasone Propionate Nasal 16 GM SPRAY 1 SPRAY NOSTRIL-B (09:03)
[2022-06-22 11:21] LABS: Glucose, Whole Blood 308 mg/dL (60-115)
--- NOTE | 2022-06-22 11:51 | HO.PM.IMPN ---
Subjective Subjective Date of Service: 06/22/22 Interval History: seen and examined this morning follow up for covid 19 denies chest pain or palpitations no dizziness Review of Systems Review of Systems: Yes all other systems are reviewed and are negative Constitutional Constitutional: Denies chills and Denies fever(s) ENT Ears, Nose, Mouth, and Throat: Denies dizziness Cardiovascular Cardiovascular: Denies chest pain, Denies palpitations and Reports dyspnea Respiratory Respiratory: Denies cough and Reports dyspnea Gastrointestinal Gastrointestinal: Denies abdominal pain, Denies diarrhea, Denies nausea and Denies vomiting Neurologic Neurologic: Denies dizziness Endocrine Endocrine: Denies palpitations Physical Exam Vital Signs: Vital Signs: Last Vital Signs Temp 97.9 F 06/22/22 11:14 Pulse 89 06/22/22 11:14 Resp 20 06/22/22 11:14 BP 121/75 06/22/22 11:14 Pulse Ox 95 06/22/22 11:14 O2 Del Method 06/22/22 11:14 O2 Flow Rate 1 06/22/22 11:14 Oxygen Flow Rate 2 06/15/22 14:14 BMI result Body Mass Index 44.9 Appearing in no acute distress lung sounds are clear to auscultation heart regular rate rhythm, clear S1, S2 positive bowel sounds, abdomen is soft, nontender neuro patient is alert x3, no focal deficits Objective Data Active Medications Acetaminophen (Acetaminophen 325 Mg Tablet) 650 mg PO Q6H PRN PRN Reason: Pain, Mild (Pain Scale 1-3) Last Admin: 06/20/22 15:25 Dose: 650 mg Documented By: DIANA Albuterol Sulfate (Albuterol Sulfate (0.083%) 2.5 Mg/3 Ml Vial.Neb) 2.5 mg INHALE Q2H PRN PRN Reason: Shortness of Breath/Wheezing Last Admin: 06/19/22 09:05 Dose: 2.5 mg Documented By: JENNIFER Apixaban (Apixaban 5 Mg Tablet) 5 mg PO BID [facility] Last Admin: 06/22/22 07:52 Dose: 5 mg Documented By: RADHA Atorvastatin Calcium (Atorvastatin Calcium 80 Mg Tablet) 80 mg PO DAILY [facility] Last Admin: 06/22/22 07:51 Dose: 80 mg Documented By: RADHA Albuterol Sulfate 2.5 mg/ (Ipratropium [place] 0.5 mg) 0 mg INHALE RQ6H WHILE AWAKE [facility] Last Admin: 06/22/22 08:06 Dose: 2.5 each Documented By: HAYLEE Dextrose (Dextrose 50 % 25 Gm/50 Ml Syringe) 25 gm IVPUSH Q15M PRN; Protocol PRN Reason: per Hypoglycemia Standing Ord. Digoxin (Digoxin 0.125 Mg Tablet) 0.125 mg PO Q48H [facility] Last Admin: 06/21/22 22:02 Dose: 0.125 mg Documented By: BREN Docusate Sodium (Docusate Sodium 100 Mg Capsule) 100 mg PO DAILY PRN PRN Reason: Constipation Duloxetine HCl (Duloxetine Hcl 30 Mg Capsule.) 30 mg PO DAILY [facility] Last Admin: 06/22/22 07:52 Dose: 30 mg Documented By: RADHA Duloxetine HCl (Duloxetine Hcl 60 Mg Capsule.) 60 mg PO BEDTIME [facility] Last Admin: 06/21/22 20:56 Dose: 60 mg Documented By: BREN Empagliflozin (Empagliflozin 10 Mg Tablet) 10 mg PO DAILY [facility] Last Admin: 06/22/22 07:52 Dose: 10 mg Documented By: RADHA Fluticasone Propionate (Fluticasone Propionate Nasal 16 Gm [place]) 1 spray NOSTRIL-B DAILY [facility] Last Admin: 06/22/22 09:03 Dose: 1 spray Documented By: RADHA Gabapentin (Gabapentin 400 Mg Capsule) 400 mg PO 5XD [facility] Last Admin: 06/22/22 11:47 Dose: 400 mg Documented By: RADHA Glucose (Glucose Gel 15 Gm Gel..Gram.) 15 gm PO Q15M PRN; Protocol PRN Reason: per Hypoglycemia Standing Ord. Guaifenesin (Guaifenesin 200 Mg/10 Ml 10 Ml Liquid) 10 ml PO Q4H PRN PRN Reason: Cough Last Admin: 06/19/22 22:54 Dose: 10 ml Documented By: JERONIMO Guaifenesin (Guaifenesin [place] 600 Mg Tab.Er.12h) 1,200 mg PO BID [facility] Last Admin: 06/22/22 07:52 Dose: 1,200 mg Documented By: RADHA Hydroxyzine HCl (Hydroxyzine Hcl 25 Mg Tablet) 25 mg PO TID [facility] Last Admin: 06/22/22 07:52 Dose: 25 mg Documented By: RADHA Insulin Human Lispro (Insulin Lispro 100 Unit/Ml 3 Ml Vial) 0 unit SUBCUT QIDACHS [facility]; Protocol Last Admin: 06/22/22 11:47 Dose: 8 unit Documented By: RADHA Isosorbide Mononitrate (Isosorbide Mononitrate 60 Mg Tab.Er.24h) 60 mg PO DAILY [facility]; Protocol Last Admin: 06/20/22 08:32 Dose: 60 mg Documented By: TETREAIesha Lidocaine (Lidocaine 4 % Patch Adh..Patch) 1 patch TRANSDERMA DAILY [facility]; Protocol Last Admin: 06/22/22 07:58 Dose: 1 patch Documented By: RADHA Loperamide HCl (Loperamide Hcl 2 Mg Capsule) 2 mg PO Q4H PRN PRN Reason: Diarrhea Last Admin: 06/16/22 07:47 Dose: 2 mg Documented By: LOLIS Lorazepam (Lorazepam 1 Mg Tablet) 2 mg PO TID PRN PRN Reason: anxiety Last Admin: 06/18/22 08:13 Dose: 2 mg Documented By: LATASHA Methylprednisolone Sodium Succinate (Methylprednisolone Sod Succ 40 Mg/Ml Vial) 40 mg IVPUSH Q12H [facility] Last Admin: 06/22/22 07:52 Dose: 40 mg Documented By: RADHA Metoprolol Succinate (Metoprolol Succinate Er 25 Mg Tab.Er.24h) 75 mg PO BID [facility]; Protocol Last Admin: 06/21/22 08:12 Dose: 75 mg Documented By: REGINALD Morphine Sulfate (Morphine Sulfate 2 Mg/Ml Cartridge) 4 mg IVPUSH Q4H PRN; Protocol PRN Reason: Pain, Severe (Pain Scale 7-10) Last Admin: 06/21/22 21:13 Dose: 4 mg Documented By: SERGIOZEPawel Omeprazole (Omeprazole 20 Mg Capsule.) 20 mg PO DAILY@0630 [facility] Last Admin: 06/22/22 06:08 Dose: 20 mg Documented By: SERGIOZEPawel Oxycodone HCl (Oxycodone Hcl Immed Release 5 Mg Tablet) 5 mg PO BID PRN PRN Reason: severe pain Last Admin: 06/22/22 06:13 Dose: 5 mg Documented By: BREN Phenytoin Sodium (Phenytoin Sodium Extended 100 Mg Capsule) 300 mg PO DAILY@0730 [facility] Last Admin: 06/22/22 07:52 Dose: 300 mg Documented By: RADHA Phenytoin Sodium (Phenytoin Sodium Extended 100 Mg Capsule) 400 mg PO BEDTIME [facility] Last Admin: 06/21/22 20:56 Dose: 400 mg Documented By: BREN Quetiapine Fumarate (Quetiapine Fumarate 100 Mg Tablet) 100 mg PO DAILY PRN PRN Reason: anxiety Quetiapine Fumarate (Quetiapine Fumarate 200 Mg Tablet) 200 mg PO BID [facility] Last Admin: 06/22/22 07:52 Dose: 200 mg Documented By: RADHA Sodium Chloride (0.9 % Sodium Chloride Flush 3 Ml Syringe) 3 ml IVFLUSH QSHIFT [facility] Last Admin: 06/22/22 07:53 Dose: 3 ml Documented By: RADHA Torsemide (Torsemide 20 Mg Tablet) 40 mg PO DAILY [facility]; Protocol Last Admin: 06/20/22 08:30 Dose: 40 mg Documented By: TETREAIesha Trazodone HCl (Trazodone Hcl 100 Mg Tablet) 100 mg PO BEDTIME [facility] Last Admin: 06/21/22 20:57 Dose: 100 mg Documented By: BREN Labs 06/21/22 06:28 06/21/22 06:28 Labs: Laboratory Results - last 24 hr 06/21/22 06/21/22 06/22/22 15:58 20:03 07:23 POC Glucose 245 H 224 H 273 H 06/22/22 11:16 POC Glucose 308 H Assessment and Plan (1) COVID-19 virus infection: Status: Acute Plan 61-year-old male with history of anxiety, mild intermittent asthma, persistent atrial fibrillation anticoagulated with Eliquis, hypertension, [id number] type 2 diabetes, history CVA, coronary artery disease, and morbid obesity with BMI greater than 46 to be observed for acute dehydration and weakness secondary to poor PO intake due to COVID-19. acute asthma exacerbation. Resolved solu-medrol change to prednisone scheduled breathing treatments & continue prn acute hypoxic respiratory failure related to COVID-19 with viral sepsis. Resolved CXR negative for consolidation Did not require remdesivir Not on home oxygen Completed treatment with Solu-Medrol, changed prednisone hypokalemia. Resolved replace and follow persistent atrial fibrillation with RVR. Resolved HR under better control but bp low today - may not be able to tolerate increase in BB will decrease metoprolol back to previous dose 75 bid and resume digoxin Q 48 hours continue Eliquis for anticoagulation acute mild dehydration, resolved. s/p IVF. renal function at baseline hyponatremia. Resolved likely pseudo hyponatremia secondary to hyperglycemia manage hyperglycemia follow BMP LLQ pain.resolved CT negative for acute intra-abdominal abnormality likely related to COVID-19/diarrhea lactic acidosis secondary to metformin use, not severe sepsis type 2 diabetes ss, ada diet history of DVT continue Eliquis coronary artery disease/hyperlipidemia continue isosorbide, metoprolol seizure disorder-stable continue phenytoin diabetic neuropathy/chronic pain continue gabapentin continue home oxycodone depression/anxiety Continue quetiapine, trazodone, lorazepam, duloxetine chronic microcytic anemia-likely related to chronic disease H/H baseline morbid obesity bmi 44.9 Discussed importance of weight management as this may be contributing to worsening of other comorbidities h/o raven noncompliant with cpap disposition. Plan to DC home with services once medically clear DVT prophylaxis-on Elimarc Attending Dr. Arshad Full code patient requires ongoing inpatient hospitalization for management of COVID-19/hypoxia Time Spent With Patient Time: Total time managing care of this patient today ____ minutes. Quality Stroke Does the patient have a stroke diagnosis?: No VTE Prior VTE?: No VTE Risk Level:: Medical - moderate - high VTE Device Contraindication: Treatment Not Indicated VTE Drug Contraindication: N/A - Med Ordered
[2022-06-22] MEDS: Morphine Sulfate 2 MG/ML CARTRIDGE 4 MG IVPUSH ×3 (12:42→23:54)
[2022-06-22 15:59] LABS: Glucose, Whole Blood 317 mg/dL (60-115)
[2022-06-22 19:50] LABS: Glucose, Whole Blood 221 mg/dL (60-115)
[2022-06-22] MEDS: Phenytoin Sodium Extended 100 MG CAPSULE 400 MG PO (21:51)
[2022-06-22] MEDS: DULoxetine HCl 60 MG CAPSULE.DR PO (21:51)
[2022-06-22] MEDS: traZODone HCL 100 MG TABLET PO (21:52)
[2022-06-23] VITALS (11 sets, daily range): BP systolic 113–148; BP diastolic 54–81; PULSE 78–121; RESP 14–20; TEMP 36–37.2; O2SAT 84–98
[2022-06-23] MEDS: guaiFENesin 200 MG/10 ML 10 ML LIQUID PO ×2 (01:45→21:34)
[2022-06-23] MEDS: Gabapentin 400 MG CAPSULE PO ×5 (05:35→21:19)
[2022-06-23] MEDS: Omeprazole 20 MG CAPSULE.DR PO (05:35)
[2022-06-23] MEDS: oxyCODONE HCl Immed Release 5 MG TABLET PO ×2 (06:22→18:26)
[2022-06-23 07:35] LABS: Glucose, Whole Blood 218 mg/dL (60-115)
[2022-06-23] MEDS: Phenytoin Sodium Extended 100 MG CAPSULE 300 MG PO (07:54)
[2022-06-23] MEDS: Lidocaine 4 % Patch ADH..PATCH 1 PATCH TRANSDERMA (07:54)
[2022-06-23] MEDS: DULoxetine HCl 30 MG CAPSULE.DR PO (07:54)
[2022-06-23] MEDS: 0.9 % Sodium Chloride Flush 3 ML SYRINGE IVFLUSH (07:54)
[2022-06-23] MEDS: predniSONE 20 MG TABLET 40 MG PO (07:55)
[2022-06-23] MEDS: Empagliflozin 10 MG TABLET PO (07:55)
[2022-06-23] MEDS: Insulin Lispro 100 UNIT/ML 3 ML VIAL SUBCUT ×4 (07:55→21:20)
[2022-06-23] MEDS: QUEtiapine Fumarate 200 MG TABLET PO ×2 (07:55→21:19)
[2022-06-23] MEDS: Atorvastatin Calcium 80 MG TABLET PO (07:55)
[2022-06-23] MEDS: Apixaban 5 MG TABLET PO ×2 (07:55→21:19)
[2022-06-23] MEDS: hydrOXYzine HCL 25 MG TABLET PO ×3 (07:55→21:19)
[2022-06-23] MEDS: guaiFENesin LA 600 MG TAB.ER.12H 1200 MG PO ×2 (07:55→21:19)
[2022-06-23] MEDS: Fluticasone Propionate Nasal 16 GM SPRAY 1 SPRAY NOSTRIL-B (07:56)
[2022-06-23] MEDS: Throat Lozenge, Medicated LOZENGE 1 LOZENGE MUCOUS MEM (11:06)
[2022-06-23 11:12] LABS: Glucose, Whole Blood 272 mg/dL (60-115)
[2022-06-23] MEDS: Morphine Sulfate 2 MG/ML CARTRIDGE 4 MG IVPUSH (11:23)
--- NOTE | 2022-06-23 15:37 | P.PNIM_ITS ---
Subjective Subjective Date of Service: 06/23/22 Interval History: Complaining of sore throat, not on home oxygen, noted t have finger oximetry 84% on room air, patient does not feel ready for discharge today complaining of generalized weakness shortness of breath, no fevers, no chills, no nausea, no abdominal pain, no diarrhea. Review of Systems Review of Systems: Yes all other systems are reviewed and are negative Physical Exam Vital Signs: Vital Signs: Last Vital Signs Temp 97.7 F 06/23/22 12:00 Pulse 119 H 06/23/22 12:00 Resp 20 06/23/22 12:00 BP 135/81 06/23/22 12:00 Pulse Ox 96 06/23/22 12:00 O2 Del Method 06/23/22 12:00 O2 Flow Rate 1 06/23/22 12:00 Oxygen Flow Rate 2 06/15/22 14:14 BMI result Body Mass Index 44.9 Const: Other: General awake alert x3, in no acute distress. Neck no JVD. CVS regular rate rhythm, Respiratory lungs clear to auscultation, diminished, no respiratory distress, no wheeze, no rhonchi. Gastrointestinal abdomen soft, nontender, bowel sounds audible, no guarding , no rigidity. Extremities no edema. Psych appropriate affect Objective Data Active Medications Acetaminophen (Acetaminophen 325 Mg Tablet) 650 mg PO Q6H PRN PRN Reason: Pain, Mild (Pain Scale 1-3) Last Admin: 06/20/22 15:25 Dose: 650 mg Documented By: DIANA Apixaban (Apixaban 5 Mg Tablet) 5 mg PO BID [facility] Last Admin: 06/23/22 07:55 Dose: 5 mg Documented By: RADHA Atorvastatin Calcium (Atorvastatin Calcium 80 Mg Tablet) 80 mg PO DAILY [facility] Last Admin: 06/23/22 07:55 Dose: 80 mg Documented By: RADHA Benzocaine (Throat Lozenge, Medicated Lozenge) 1 lozenge MUCOUS MEM Q2H PRN PRN Reason: Sore Throat Last Admin: 06/23/22 11:06 Dose: 1 lozenge Documented By: RADHA Albuterol Sulfate 2.5 mg/ (Ipratropium [place] 0.5 mg) 0 mg INHALE RQ6H WHILE AWAKE [facility] Last Admin: 06/23/22 08:28 Dose: 1 each Documented By: FELIPE Dextrose (Dextrose 50 % 25 Gm/50 Ml Syringe) 25 gm IVPUSH Q15M PRN; Protocol PRN Reason: per Hypoglycemia Standing Ord. Digoxin (Digoxin 0.125 Mg Tablet) 0.125 mg PO Q48H [facility] Last Admin: 06/21/22 22:02 Dose: 0.125 mg Documented By: SERGIOZEPawel Docusate Sodium (Docusate Sodium 100 Mg Capsule) 100 mg PO DAILY PRN PRN Reason: Constipation Duloxetine HCl (Duloxetine Hcl 30 Mg Capsule.) 30 mg PO DAILY [facility] Last Admin: 06/23/22 07:54 Dose: 30 mg Documented By: RADHA Duloxetine HCl (Duloxetine Hcl 60 Mg Capsule.) 60 mg PO BEDTIME [facility] Last Admin: 06/22/22 21:51 Dose: 60 mg Documented By: MAREN Empagliflozin (Empagliflozin 10 Mg Tablet) 10 mg PO DAILY [facility] Last Admin: 06/23/22 07:55 Dose: 10 mg Documented By: RADHA Fluticasone Propionate (Fluticasone Propionate Nasal 16 Gm [place]) 1 spray NOSTRIL-B DAILY [facility] Last Admin: 06/23/22 07:56 Dose: 1 spray Documented By: RADHA Gabapentin (Gabapentin 400 Mg Capsule) 400 mg PO 5XD [facility] Last Admin: 06/23/22 15:00 Dose: 400 mg Documented By: RADHA Glucose (Glucose Gel 15 Gm Gel..Gram.) 15 gm PO Q15M PRN; Protocol PRN Reason: per Hypoglycemia Standing Ord. Guaifenesin (Guaifenesin 200 Mg/10 Ml 10 Ml Liquid) 10 ml PO Q4H PRN PRN Reason: Cough Last Admin: 06/23/22 01:45 Dose: 10 ml Documented By: ERIN Guaifenesin (Guaifenesin [place] 600 Mg Tab.Er.12h) 1,200 mg PO BID [facility] Last Admin: 06/23/22 07:55 Dose: 1,200 mg Documented By: RADHA Hydroxyzine HCl (Hydroxyzine Hcl 25 Mg Tablet) 25 mg PO TID [facility] Last Admin: 06/23/22 15:00 Dose: 25 mg Documented By: RADHA Insulin Human Lispro (Insulin Lispro 100 Unit/Ml 3 Ml Vial) 0 unit SUBCUT QIDACHS [facility]; Protocol Last Admin: 06/23/22 11:17 Dose: 6 unit Documented By: RADHA Isosorbide Mononitrate (Isosorbide Mononitrate 60 Mg Tab.Er.24h) 60 mg PO DAILY [facility]; Protocol Last Admin: 06/20/22 08:32 Dose: 60 mg Documented By: TETREAIesha Lidocaine (Lidocaine 4 % Patch Adh..Patch) 1 patch TRANSDERMA DAILY [facility]; Protocol Last Admin: 06/23/22 07:54 Dose: 1 patch Documented By: RADHA Loperamide HCl (Loperamide Hcl 2 Mg Capsule) 2 mg PO Q4H PRN PRN Reason: Diarrhea Last Admin: 06/16/22 07:47 Dose: 2 mg Documented By: LOLIS Lorazepam (Lorazepam 1 Mg Tablet) 2 mg PO TID PRN PRN Reason: anxiety Last Admin: 06/18/22 08:13 Dose: 2 mg Documented By: BROPawel Metoprolol Succinate (Metoprolol Succinate Er 25 Mg Tab.Er.24h) 75 mg PO BID [facility]; Protocol Last Admin: 06/21/22 08:12 Dose: 75 mg Documented By: REGINALD Morphine Sulfate (Morphine Sulfate 2 Mg/Ml Cartridge) 4 mg IVPUSH Q4H PRN; Protocol PRN Reason: Pain, Severe (Pain Scale 7-10) Last Admin: 06/23/22 11:23 Dose: 4 mg Documented By: RADHA Omeprazole (Omeprazole 20 Mg Capsule.) 20 mg PO DAILY@0630 [facility] Last Admin: 06/23/22 05:35 Dose: 20 mg Documented By: ERIN Oxycodone HCl (Oxycodone Hcl Immed Release 5 Mg Tablet) 5 mg PO BID PRN PRN Reason: severe pain Last Admin: 06/23/22 06:22 Dose: 5 mg Documented By: ERIN Phenytoin Sodium (Phenytoin Sodium Extended 100 Mg Capsule) 300 mg PO DAILY@0730 [facility] Last Admin: 06/23/22 07:54 Dose: 300 mg Documented By: RADHA Phenytoin Sodium (Phenytoin Sodium Extended 100 Mg Capsule) 400 mg PO BEDTIME [facility] Last Admin: 06/22/22 21:51 Dose: 400 mg Documented By: MAREN Prednisone (Prednisone 20 Mg Tablet) 40 mg PO DAILY [facility] Last Admin: 06/23/22 07:55 Dose: 40 mg Documented By: RADHA Quetiapine Fumarate (Quetiapine Fumarate 100 Mg Tablet) 100 mg PO DAILY PRN PRN Reason: anxiety Quetiapine Fumarate (Quetiapine Fumarate 200 Mg Tablet) 200 mg PO BID [facility] Last Admin: 06/23/22 07:55 Dose: 200 mg Documented By: RADHA Sodium Chloride (0.9 % Sodium Chloride Flush 3 Ml Syringe) 3 ml IVFLUSH QSHIFT [facility] Last Admin: 06/23/22 14:19 Dose: Not Given Documented By: RADHA Non-Admin Reason: No Access Torsemide (Torsemide 20 Mg Tablet) 40 mg PO DAILY [facility]; Protocol Last Admin: 06/20/22 08:30 Dose: 40 mg Documented By: DIANA Trazodone HCl (Trazodone Hcl 100 Mg Tablet) 100 mg PO BEDTIME [facility] Last Admin: 06/22/22 21:52 Dose: 100 mg Documented By: MAREN Labs 06/21/22 06:28 06/21/22 06:28 Labs: Laboratory Results - last 24 hr 06/22/22 06/22/22 06/23/22 15:11 19:43 07:14 POC Glucose 317 H 221 H 218 H 06/23/22 11:02 POC Glucose 272 H Assessment and Plan (1) COVID-19 virus infection: Status: Acute Plan 61-year-old male with history of anxiety, mild intermittent asthma, persistent atrial fibrillation anticoagulated with Eliquis, hypertension, [id number] type 2 diabetes, history CVA, coronary artery disease, and morbid obesity with BMI greater than 46 to be observed for acute dehydration and weakness secondary to poor PO intake due to COVID-19. acute asthma exacerbation. Resolved s/p iv solu-medrol on po prednisone 40mg cont.scheduled breathing treatments & continue prn , will add Cepacol lozenges for sore throat acute hypoxic respiratory failure related to COVID-19 with viral sepsis. CXR negative for consolidation Did not require remdesivir Not on home oxygen, had home O2 eval qualifies for 2 L of oxygen hypokalemia. Resolved replace and follow persistent atrial fibrillation with RVR. HR better control continue metoprolol 75 mg b.i.d.and digoxin Q 48 hours continue Eliquis for anticoagulation acute mild dehydration, resolved. s/p IVF. renal function at baseline hyponatremia. Resolved likely pseudo hyponatremia secondary to hyperglycemia manage hyperglycemia follow BMP LLQ pain.resolved CT negative for acute intra-abdominal abnormality likely related to COVID-19/diarrhea lactic acidosis secondary to metformin use, not severe sepsis type 2 diabetes Elevated blood sugars likely due to steroids continue insulin sliding scale, 90 sound ada diet history of DVT continue Eliquis coronary artery disease/hyperlipidemia continue isosorbide, metoprolol seizure disorder-stable continue phenytoin diabetic neuropathy/chronic pain continue gabapentin continue home oxycodone depression/anxiety Continue quetiapine, trazodone, lorazepam, duloxetine chronic microcytic anemia-likely related to chronic disease H/H baseline morbid obesity bmi 44.9 Discussed importance of weight management as this may be contributing to worseni ng of other co morbidities h/o raven noncompliant with cpap disposition. Plan to DC home with services once medically clear DVT prophylaxis-on Eliquis For Full code patient requires ongoing inpatient hospitalization for management of COVID- 19/hypoxia Time Spent With Patient Time: Total time managing care of this patient today ____ minutes. Quality Stroke Does the patient have a stroke diagnosis?: No VTE Prior VTE?: No VTE Risk Level:: Medical - moderate - high VTE Device Contraindication: Treatment Not Indicated VTE Drug Contraindication: N/A - Med Ordered
[2022-06-23 16:33] LABS: Glucose, Whole Blood 326 mg/dL (60-115)
[2022-06-23 20:37] LABS: Glucose, Whole Blood 272 mg/dL (60-115)
[2022-06-23] MEDS: DULoxetine HCl 60 MG CAPSULE.DR PO (21:19)
[2022-06-23] MEDS: traZODone HCL 100 MG TABLET PO (21:19)
[2022-06-23] MEDS: Phenytoin Sodium Extended 100 MG CAPSULE 400 MG PO (21:20)
[2022-06-23] MEDS: LORazepam 1 MG TABLET 2 MG PO (21:30)
[2022-06-23] MEDS: Digoxin 0.125 MG TABLET PO (23:59)
[2022-06-24] MEDS: 0.9 % Sodium Chloride Flush 3 ML SYRINGE IVFLUSH ×2 (00:02→08:56)
[2022-06-24 04:00] VITALS: BP 102/64; PULSE 104; RESP 17; TEMP 35.9; O2SAT 95
[2022-06-24] MEDS: Gabapentin 400 MG CAPSULE PO ×3 (06:37→15:15)
[2022-06-24] MEDS: Omeprazole 20 MG CAPSULE.DR PO (06:37)
[2022-06-24] MEDS: guaiFENesin 200 MG/10 ML 10 ML LIQUID PO (06:37)
[2022-06-24] MEDS: oxyCODONE HCl Immed Release 5 MG TABLET PO (06:43)
[2022-06-24 08:00] VITALS: BP 146/64; PULSE 93; RESP 20; TEMP 36.2; O2SAT 95
[2022-06-24 08:29] LABS: Glucose, Whole Blood 205 mg/dL (60-115)
[2022-06-24] MEDS: guaiFENesin LA 600 MG TAB.ER.12H 1200 MG PO (08:53)
[2022-06-24] MEDS: Insulin Lispro 100 UNIT/ML 3 ML VIAL SUBCUT ×2 (08:53→12:23)
[2022-06-24] MEDS: Lidocaine 4 % Patch ADH..PATCH 1 PATCH TRANSDERMA (08:53)
[2022-06-24] MEDS: predniSONE 20 MG TABLET 40 MG PO (08:54)
[2022-06-24] MEDS: Empagliflozin 10 MG TABLET PO (08:54)
[2022-06-24] MEDS: hydrOXYzine HCL 25 MG TABLET PO ×2 (08:54→15:15)
[2022-06-24] MEDS: Phenytoin Sodium Extended 100 MG CAPSULE 300 MG PO (08:54)
[2022-06-24] MEDS: Atorvastatin Calcium 80 MG TABLET PO (08:54)
[2022-06-24] MEDS: QUEtiapine Fumarate 200 MG TABLET PO (08:54)
[2022-06-24] MEDS: DULoxetine HCl 30 MG CAPSULE.DR PO (08:54)
[2022-06-24] MEDS: Apixaban 5 MG TABLET PO (08:54)
[2022-06-24] MEDS: Fluticasone Propionate Nasal 16 GM SPRAY 1 SPRAY NOSTRIL-B (08:59)
[2022-06-24] MEDS: LORazepam 1 MG TABLET 2 MG PO (10:59)
[2022-06-24 11:30] LABS: Glucose, Whole Blood 270 mg/dL (60-115)
[2022-06-24 11:43] VITALS: BP 143/95; PULSE 108; RESP 20; TEMP 36.2; O2SAT 97
--- NOTE | 2022-06-24 14:22 | PM.DS ---
DS: Providers Provider Date of Service: 06/24/22 Date of admission: 06/18/22 12:50 Primary care physician: Matheus Yo MD DS: Diagnosis Discharge Diagnosis (1) COVID-19 virus infection: Status: Acute DS: Summary Hospital Course Hospital Course: Date of Service: 06/15/22 Attending physician on admission: Lyn Obrien Chief Complaint: weakness, abd pain, lightheadedness 61-year-old male with history of anxiety, mild intermittent asthma, persistent atrial fibrillation anticoagulated with Eliquis, hypertension, [id number] type 2 diabetes, history CVA, coronary artery disease, and morbid obesity with BMI greater than 46 presented for evaluation of abdominal pain, weakness, sweats, chills, anorexia, and poor p.o. intake ongoing for 5 days.? He reports that the left-sided abdominal pain described as intermittent, sharp pain is rated at an 8/10 at its worst.? He has had several episodes of diarrhea intermittently with no more than 1 episode per day.? He denies any fevers, rigors, sore throat, headache, nausea, vomiting, constipation, melena, and hematochezia, shortness of breath, chest pain.? He has felt like he has been wheezing headache has been using his albuterol inhaler once daily.? He states that prior to arrival, he was meeting with housing adviser, when he had an episode of diarrhea and became very lightheaded and diaphoretic.? At that time, the housing adviser called EMS for transfer to the ED. on arrival, patient tachycardic to 114, tachypneic to 25, hypotensive 83/55.? The patient arrived to the ED on oxygen.? Upon questioning, the patient states that he has been recommended to wear oxygen continuously at home but is not compliant with this.? Oximetry on exam is 94%, but desaturates to the high 80s with movement.? There has been no documented hypoxia in the ED today.? He received IV fluid bolus of 2535 mL/hr NS as there was initially concern for diverticulitis with sepsis given the left lower quadrant pain and vitals.? However, CT of the abdomen/pelvis was without any acute intra-abdominal abnormality.? CXR was unremarkable.? EKG showing AFib with RVR, rate 113, no ST/T-wave abnormalities suggestive of acute ischemia, no significant change compared to prior EKGs. Blood pressure improved to 107/54 following IV fluids and has remained stable.? However he does remain tachycardic to 112, tachypneic to 28.? There is no leukocytosis.? Initial lactic acid elevated at 2.5, repeat 1.8.? Renal function baseline.? Mild hyponatremia of 132, potassium 4.2, chloride 94, CO2 26.? Glucose 332.? Troponin 22.? Urinalysis unremarkable.? Positive for COVID-19.? Negative for influenza and RSV. Patient is fully vaccinated against COVID-19 with booster x 2. Hospital course 61-year-old male with history of anxiety, mild intermittent asthma, persistent atrial fibrillation anticoagulated with Eliquis, hypertension, djh-[id number]-[id number] type 2 diabetes, history CVA, coronary artery disease, and morbid obesity with BMI greater than 46 to be observed for acute dehydration and weakness secondary to poor PO intake due to COVID-19. acute asthma exacerbation. Patient treated with iv solu-medrol, cough medication, lozenges and updraft treatment patient responded well to above treatment and now being discharged home on as needed albuterol and short course of prednisone recommended to use cough medication as needed . acute hypoxic respiratory failure related to COVID-19 with viral sepsis and asthma exacerbation, chest x-ray showed no consolidation patient did not qualify for remdesivir patient noted to have persistent hypoxia therefore qualifies for 2 L L of home oxygen and is being discharged home with VNA services. hypokalemia repleted and normalized.? persistent atrial fibrillation with RVR patient noted to have few episodes of rapid ventricular response likely due to hypoxia and asthma exacerbation, currently is a have stable ventricular rate recommend to continue metoprolol 75 mg b.i.d.and continue Eliquis for anticoagulation acute mild dehydration, resolved, received IV fluids renal function at baseline LLQ pain.CT negative for acute intra-abdominal abnormality, likely related to COVID-19/diarrhea, abdominal pain resolved lactic acidosis secondary to metformin use, not severe sepsis type 2 diabetes Elevated blood sugars likely due to steroids recommend to follow diabetic diet and home medication. history of DVT continue Eliquis coronary artery disease/hyperlipidemia continue isosorbide, metoprolol seizure disorder-continue phenytoin diabetic neuropathy/chronic pain continue gabapentin and home oxycodone depression/anxiety Continue quetiapine, trazodone, lorazepam, and duloxetine chronic microcytic anemia-likely related to chronic disease H/H baseline morbid obesity bmi 44.9, Discussed importance of weight management as this may be contributing to worsening of other co morbidities h/o raven recommend to continue CPAP, is noncompliant. ? Time Spent with Patient Time attestation: Total time managing care of this patient today ____ minutes. Discharge coordination time: Greater than 30 minutes Quality: Safe Use of Opioids Does Pt have an Active Cancer Diagnosis on the Problem List?: No Quality: Stroke Does the patient have a stroke diagnosis?: No Physical Exam Vital Signs: Vital Signs: Last Vital Signs Temp 97.2 F 06/24/22 11:43 Pulse 108 H 06/24/22 11:43 Resp 20 06/24/22 11:43 BP 143/95 H 06/24/22 11:43 Pulse Ox 97 06/24/22 11:43 O2 Del Method 06/24/22 11:43 O2 Flow Rate 2 06/24/22 11:43 Oxygen Flow Rate 2 06/15/22 14:14 BMI result Body Mass Index 44.9 Const: Other: General awake alert x3, in no acute distress.? Neck no JVD. CVS? regular rate rhythm, Respiratory lungs clear to auscultation, diminished, no respiratory distress, no wheeze, no rhonchi. Gastrointestinal abdomen soft, nontender, bowel sounds audible, no guarding , no rigidity. Extremities no? edema, discoloration due to venous stasis right lower extremity Right knee no swelling, no warmth, no redness, patient complained of localized tenderness pre patella, right knee good range of motion. Psych appropriate affect. DS: Data Data Completed and Pending Labs on day of discharge: Laboratory Results - last 24 hr 06/23/22 06/23/22 06/24/22 16:25 20:26 08:18 POC Glucose 326 H 272 H 205 H 06/24/22 11:17 POC Glucose 270 H Discharge Plan Discharge Anticipated Discharge Date/Time: 06/24/22 14:11 Patient Disposition: Home Health Service Discharge Diagnosis: Acute asthma exacerbation resolved Acute hypoxic respiratory failure COVID-19 infection Referrals: Matheus Yo MD [Primary Care Provider] - 1 Week Discharge Medications: New guaifenesin 100 mg/5 mL Liquid 200 mg PO Q6H PRN (Reason: Cough) Qty: 473 0RF prednisone 20 mg tablet 20 mg PO DAILY Qty: 4 0RF Continued trazodone 50 mg tablet 100 mg PO BEDTIME phenytoin sodium extended 100 mg capsule 300 mg PO DAILY@0730 isosorbide mononitrate 60 mg tablet extended release 24 hr 60 mg PO QAM pantoprazole 40 mg tablet,delayed release (DR/EC) 40 mg PO DAILY metformin 1,000 mg tablet 1,000 mg PO QAM hydroxyzine HCl 25 mg tablet 25 mg PO TID PRN (Reason: Itching) phenytoin sodium extended 100 mg capsule 400 mg PO BEDTIME gabapentin 400 mg capsule 400 mg PO 5XD Rx Instructions: hold for sedation oxycodone 5 mg tablet 5 mg PO BID PRN (Reason: severe pain) Eliquis 5 mg tablet 5 mg PO BID albuterol sulfate 90 mcg/actuation Hfa Aerosol Inhaler 2 puff INHALATION Q4-6H PRN (Reason: Shortness Of Breath Or Wheezing) metoprolol succinate 25 mg Tablet Extended Release 24 Hr 75 mg PO BID 30 Days Qty: 180 1RF Protocol: Hold for SBP/HR < HOLD for SBP < : 90 HOLD for HR < : 60 atorvastatin 80 mg tablet 1 tab PO DAILY torsemide 20 mg tablet 2 tab PO DAILY quetiapine 200 mg tablet 1 tab PO BID quetiapine 100 mg tablet 1 tab PO QAM PRN (Reason: Insomnia) lorazepam 2 mg tablet 2 tab PO TID PRN (Reason: anxiety) duloxetine 30 mg capsule,delayed release(DR/EC) 30 mg PO DAILY duloxetine 30 mg capsule,delayed release(DR/EC) 60 mg PO BEDTIME Jardiance 10 mg tablet 1 tab PO DAILY cyanocobalamin (vitamin B-12) 1,000 mcg Tablet 1,000 mcg PO DAILY insulin lispro 100 unit/mL Solution 1 sliding scale dose SUBCUT USEASDIRECTD Protocol: Insulin Correction Scale Less than or equal to 110 ---- Give (units): 0 111 to 150 Give (units): 0 151 to 200 Give (units): 2 201 to 250 Give (units): 4 251 to 300 Give (units): 6 301 to 350 Give (units): 8 Greater than 350 Give (units): 10 Call MD if Blood Glucose > : 350 fluticasone propionate 50 mcg/actuation [place],Suspension 1 spray INTRANASAL DAILY Rx Instructions: administer into each nostril insulin glargine [Lantus Solostar U-100 Insulin] 100 unit/mL (3 mL) Insulin Pen 20 unit SUBCUT BEDTIME cholecalciferol (vitamin D3) 50 mcg (2,000 unit) Tablet 50 mcg PO DAILY Discharge Orders: Discharge Order (Routine); Ordered 06/24/22 Ordered By: Hema May Diet: Diabetic diet Activity on Discharge: As tolerated Stand Alone Forms: Patient Portal Discharge page Care Plan Goals: Use oxygen 2 L at rest and with transfers, take prednisone as directed, take cough medication as needed use albuterol inhaler for shortness of breath Avoid crowded places, strictly follow diabetic diet since prednisone can increased blood sugars Health Concerns: Diabetes mellitus follow low-calorie diet, take all home medications as before Plan of Treatment: Follow-up with primary care physician call to make appointment Assessment: As above Patient Instructions: Prednisone (By mouth), Guaifenesin (By mouth) Discharge Date/Time: 06/24/22 16:10
[2022-06-24 15:16] VITALS: BP 130/86; PULSE 130; RESP 20; TEMP 36.4; O2SAT 97
== END 2022-06-24 16:10 | disposition home health service (06) | DRG 720 ==
LOC: HO.ED 20:44 → HO.EDOVER 21:28 → HO.IMC 06-16 04:31
PROVIDERS: Internal Medicine; Nurse Practitioner Acute Care; Physician Assistant Medical; Admitting Provider Physician Assistant; Emergency Provider Emergency Medicine Emergency Medical Services; PCP Hospitalist; Visit Provider Hospitalist
DX: A41.89 Other specified sepsis (principal); J96.01 Acute respiratory failure with hypoxia; U07.1 COVID-19; E87.20 Acidosis, unspecified; I48.19 Other persistent atrial fibrillation; D63.8 Anemia in other chronic diseases classified elsewhere; J45.21 Mild intermittent asthma with (acute) exacerbation; E86.0 Dehydration; E11.65 Type 2 diabetes mellitus with hyperglycemia; G40.909 Epilepsy, unspecified, not intractable, without status epilepticus; E66.01 Morbid (severe) obesity due to excess calories; F32.A Depression, unspecified; F41.9 Anxiety disorder, unspecified; E11.40 Type 2 diabetes mellitus with diabetic neuropathy, unspecified; F43.10 Post-traumatic stress disorder, unspecified; Z68.41 Body mass index [BMI] 40.0-44.9, adult; E87.6 Hypokalemia; I25.10 Atherosclerotic heart disease of native coronary artery without angina pectoris; Z86.73 Personal history of transient ischemic attack (TIA), and cerebral infarction without residual deficits; G47.33 Obstructive sleep apnea (adult) (pediatric); I95.2 Hypotension due to drugs; Z91.040 Latex allergy status; Z88.0 Allergy status to penicillin; Z88.6 Allergy status to analgesic agent; Z91.199 Patient's noncompliance with other medical treatment and regimen due to unspecified reason; Z86.718 Personal history of other venous thrombosis and embolism; Z79.01 Long term (current) use of anticoagulants; Z79.4 Long term (current) use of insulin; Z79.84 Long term (current) use of oral hypoglycemic drugs; Z79.899 Other long term (current) drug therapy
CPT/HCPCS: 0241U; 36415; 36600; 71045; 74177; 80048; 80053; 81003; 82728; 82803; 82947; 83540; 83605; 83615; 83690; 84484; 85025; 85027; 85610; 85730; 86140; 87040; 93005; 97162; 97530; 99285; J1100; J1956; J2270; J2920; J3010; Q9967

== ENCOUNTER 2022-06-26 11:24 | Emergency (ER) | payer OTHER, SELFPAY ==
--- NOTE | ~2022-06-26 | CT_ITS ---
EXAMINATION: CT ABDOMEN AND PELVIS WITH CONTRAST CLINICAL INFORMATION: Epigastric abdominal pain. COMPARISON: Limited abdomen ultrasound from 06/27/2022. Abdomen CT from 02/16/2018 and 06/15/2022. TECHNIQUE: Multidetector volumetric images were obtained from the superior aspect of the liver through the pubic symphysis following administration 100 mL of Omnipaque 350 intravenous contrast. Sagittal and coronal reformatted images were obtained on the technologist's workstation. This CT examination was performed using dose optimization techniques as appropriate, variously including the following: *Automated exposure control *Adjustment of mA and/or kV according to patient size (this includes techniques or standardized protocols for targeted exams where dose is matched to indication/reason for exam; i.e. extremities or head) *Use of iterative reconstruction technique DLP: 2026 mGy-cm FINDINGS: LUNG BASES: Small pleural effusions are present. LIVER: Again noted is hepatomegaly. The right hepatic lobe measures approximately 20 cm in craniocaudal dimension. The left hepatic lobe is chronically atrophied. No focal liver lesion. GALLBLADDER AND BILIARY TREE: Gallbladder is physiologically distended and has a 0.8 cm stone (image 40, series 3). No dilated bile ducts. No gallbladder wall thickening or pericholecystic fluid. PANCREAS: No acute findings within the atrophied pancreas. No edema, pancreatic ductal dilatation or mass. SPLEEN: Chronic splenomegaly. The spleen measures up to 18 cm maximum dimension. No focal splenic lesion. ADRENAL GLANDS: Normal. KIDNEYS AND URETERS: The kidneys have normal size and cortical thickness. No renal mass. No perinephric fluid collection. No urolithiasis or hydroureteronephrosis. BLADDER: Normal. No calculi or wall thickening. BOWEL AND PERITONEUM: Stomach is unremarkable. No dilated loops of bowel. The appendix is likely surgically absent. No overt bowel wall thickening or mesenteric fat stranding. No free fluid or pneumoperitoneum. ABDOMINAL WALL: Obese body habitus. Chronic atrophy of rectus abdominis muscles. No abdominal wall mass or hernia. VASCULATURE: Abdominal aorta is normal in caliber and its branches are widely patent. LYMPH NODES: No pathologic sized lymph nodes in the abdomen or pelvis. No inguinal lymphadenopathy. PELVIC VISCERA: Prostate gland is unremarkable. Multiple phleboliths are present within the lower pelvis. No pelvic mass or pelvic free fluid. MUSCULOSKELETAL: No acute findings within the visualized degenerated thoracic lumbar spine. Findings include old compression fracture of T11 vertebral body. There is chondrocalcinosis of the spine and pubic symphysis. Mild osteoarthritis of the hips and [id number] osteoarthritis of the sacroiliac joints. Chronic atrophy and partial fatty replacement of paraspinal muscles. CT/CT abdomen pelvis w IV con IMPRESSION: * No acute imaging abnormalities in the abdomen or pelvis compared to 06/15/2022. * Obesity and chronic hepatosplenomegaly. * Cholelithiasis without evidence of acute cholecystitis. * Small bilateral pleural effusions are new compared to 06/15/2022.
--- NOTE | ~2022-06-26 | XR_ITS ---
EXAMINATION: XR chest 1V CLINICAL INFORMATION: Reason for Exam shortness of breath COMPARISON: Chest radiograph 06/20/2022 TECHNIQUE: One view of the chest FINDINGS: Clear lungs. No pneumothorax or pleural effusion. Unchanged cardiomediastinal silhouette. XR/XR chest 1V IMPRESSION: * Clear lungs.
--- NOTE | ~2022-06-26 | US_ITS ---
EXAMINATION: US ABDOMEN LIMITED CLINICAL INFORMATION: Upper abdominal pain. Gallstones.. COMPARISON: CT scan dated 06/15/2022. TECHNIQUE: Real-time imaging of the right upper quadrant abdominal viscera. FINDINGS: Limited by patient body habitus. PANCREAS: Poorly visualized. LIVER: Poorly visualized. Measures approximately 19 cm in sagittal dimension. Otherwise grossly unremarkable. No focal hepatic lesion appreciated. No gross intrahepatic biliary duct dilatation is seen. GALLBLADDER: Suspect 0.9 cm stone in the gallbladder neck. The gallbladder is physiologically distended without gross evidence of sludge, polyps, wall thickening or pericholecystic fluid. Technologist reports positive sonographic Sheikh's sign. COMMON BILE DUCT: Normal in caliber measuring 0.5 cm in diameter. RIGHT KIDNEY: No hydronephrosis. No renal calculi or focal parenchymal lesions. The kidney measures 13.1 cm in maximum dimension. FREE FLUID: None. US/US abdomen limited IMPRESSION: Limited by patient body habitus. Suspect 0.9 cm stone in the gallbladder neck. Technologist reports positive sonographic Sheikh's sign. Borderline mild hepatomegaly.
--- NOTE | ~2022-06-26 | NM_ITS ---
EXAMINATION: BILIARY TRACT IMAGING STUDY WITH CCK CLINICAL INFORMATION: Epigastric abdominal pain.. COMPARISON: CT of the abdomen and pelvis done on 06/27/2022.. TECHNIQUE: Serial gamma scintillation camera images were obtained over the abdomen for a total observation period of 60 minutes following the intravenous administration of 5.0 mCi Tc-99m mebrofenin. FINDINGS: There is good concentration of activity in the liver by 5 minutes post injection. Biliary activity is visualized by 15 minutes. The gallbladder is well visualized by 30 minutes. Small bowel is well visualized by 40 minutes. At 60 minutes post radiopharmaceutical injection, a 30-minute infusion of 3.3 micrograms Sincalide was then begun and an additional 40 minutes of images were obtained. There is good emptying of the gallbladder. By the end of the study there is good clearance of activity from the liver and visualization of diffuse small bowel activity. The calculated gallbladder ejection fraction is 92% (normal gallbladder ejection fraction is greater than 35%). NM/NM hepatobiliary w pharm IMPRESSION: Visualization of the gallbladder is evidence of a patent cystic duct and strong evidence against the diagnosis of acute cholecystitis. The common bile duct is patent. Gallbladder emptying and ejection fraction are normal. Liver function appears normal.
[2022-06-26 11:35] VITALS: BP 153/84; PULSE 80; RESP 20; TEMP 36.6; O2SAT 99; BMI 45.4
--- NOTE | 2022-06-26 11:39 | PC.NURSE ---
2l nc at baseline
--- NOTE | 2022-06-26 11:51 | ECG_ITS ---
Test Reason : TACHYCARDIA SOB Blood Pressure : / mmHG Vent. Rate : 091 BPM Atrial Rate : 000 BPM P-R Int : 000 ms QRS Dur : 166 ms QT Int : 428 ms P-R-T Axes : 000 267 011 degrees QTc Int : 526 ms Atrial fibrillation Right bundle branch block Inferior infarct (cited on or before 24-MAR-2020) Abnormal ECG When compared with ECG of 20-JUN-2022 13:34, No significant change was found Referred By: Ese Pollock Electronically Signed By:NANCY HOLT MD
--- NOTE | 2022-06-26 11:52 | ED_ITS ---
HPI - General Adult General Chief complaint: General Medical Stated complaint: flu like symptoms Time Seen by Provider: 06/26/22 11:36 History of Present Illness HPI narrative: 62-year-old male with a past medical history of asthma, AFib on Eliquis, CAD, dm 2, HTN, TIA, and recent diagnosis of COVID-19 on 06/15/22 presents emergency department, by EMS, for complaints of generalized weakness and persistent diarrhea. He states he was hospitalized here, at [place], for acute dehydration due to Covid from . Related Data Home Medications Medication Instructions Recorded Confirmed hydroxyzine HCl 25 mg tablet 25 mg PO TID PRN Itching 03/23/20 06/15/22 isosorbide mononitrate 60 mg 60 mg PO QAM 03/23/20 06/15/22 tablet,extended release 24 hr metformin 1,000 mg tablet 1,000 mg PO QAM 03/23/20 06/15/22 pantoprazole 40 mg tablet,delayed 40 mg PO DAILY 03/23/20 06/15/22 release phenytoin sodium extended 100 mg 300 mg PO DAILY@0730 03/23/20 06/15/22 capsule phenytoin sodium extended 100 mg 400 mg PO BEDTIME 03/23/20 06/15/22 capsule trazodone 50 mg tablet 100 mg PO BEDTIME 03/23/20 06/15/22 albuterol sulfate 90 mcg/actuation 2 puff inhalation Q4-6H PRN 04/13/22 06/15/22 aerosol inhaler Shortness Of Breath Or Wheezing apixaban 5 mg tablet (Eliquis) 5 mg PO BID 04/13/22 06/15/22 gabapentin 400 mg capsule 400 mg PO 5XD 04/13/22 06/15/22 oxycodone 5 mg tablet 5 mg PO BID PRN severe pain 04/13/22 06/15/22 atorvastatin 80 mg tablet 1 tab PO DAILY 06/15/22 06/15/22 cholecalciferol (vitamin D3) 50 50 mcg PO DAILY 06/15/22 06/15/22 mcg (2,000 unit) tablet cyanocobalamin (vitamin B-12) 1,000 mcg PO DAILY 06/15/22 06/15/22 1,000 mcg tablet duloxetine 30 mg capsule,delayed 30 mg PO DAILY 06/15/22 06/15/22 release duloxetine 30 mg capsule,delayed 60 mg PO BEDTIME 06/15/22 06/15/22 release empagliflozin 10 mg tablet 1 tab PO DAILY 06/15/22 06/15/22 (Jardiance) fluticasone propionate 50 1 spray intranasal DAILY 06/15/22 06/15/22 mcg/actuation nasal spray,suspension insulin glargine 100 unit/mL (3 20 unit subcut BEDTIME 06/15/22 06/15/22 mL) subcutaneous pen (Lantus Solostar U-100 Insulin) insulin lispro 100 unit/mL 1 sliding scale dose subcut 06/15/22 06/15/22 subcutaneous solution USEASDIRECTD lorazepam 2 mg tablet 2 tab PO TID PRN anxiety 06/15/22 06/15/22 quetiapine 100 mg tablet 1 tab PO QAM PRN Insomnia 06/15/22 06/15/22 quetiapine 200 mg tablet 1 tab PO BID 06/15/22 06/15/22 torsemide 20 mg tablet 2 tab PO DAILY 06/15/22 06/15/22 Previous Rx's Medication Instructions Recorded metoprolol succinate 25 mg 75 mg PO BID 30 days #180 tabs 04/17/22 tablet,extended release 24 hr guaifenesin 100 mg/5 mL oral liquid 200 mg (10 mL) PO Q6H PRN Cough 06/24/22 #473 mL prednisone 20 mg tablet 20 mg PO DAILY #4 tabs 06/24/22 Allergies Allergy/AdvReac Type Severity Reaction Status Date / Time aspirin Allergy Severe OCCASIONAL Verified 04/08/22 14:18 RASH / TONGUE SWELLING, Hives, throat swellig bee pollen [BEE STINGS] Allergy Severe ANAPHYLAXIS Verified 04/08/22 14:18 Penicillins Allergy Severe ANAPHYLAXIS Verified 04/08/22 14:18 povidone-iodine [Betadine] Allergy Severe Redness of Verified 04/08/22 14:18 Skin soap [Betadine] Allergy Severe Redness of Verified 04/08/22 14:18 Skin spider venom [SPIDER BITES] Allergy Severe Hives Verified 04/08/22 14:18 amoxicillin Allergy Intermediate Hives Verified 04/08/22 14:18 clindamycin Allergy Mild RASH Verified 04/08/22 14:18 latex [Latex] Allergy Mild RASH Verified 04/08/22 14:18 shrimp Allergy Hives Verified 06/21/22 11:48 bupropion [From WELLBUTRIN] AdvReac Severe SEIZURES Verified 04/08/22 14:18 adhesive tape AdvReac Mild Rash Verified 04/14/22 15:55 [facility] Past Medical History Medical History Anxiety Arthritis Asthma Atrial fibrillation with rapid ventricular response Coronary artery disease Diabetes mellitus, type 2 Fall Hypertension Multifactorial gait disorder Obesity PTSD (post-traumatic stress disorder) TIA (transient ischemic attack) Transient ischemic attack (TIA) Social History Social History Household Members: None Housing: Apartment Do you presently have visiting nurse or other home services: Yes Alcohol intake: former Patient Tobacco Use Status: Never used Tobacco Second Hand Smoke Exposure: No Advance Directives: Yes Advance Directives on File: Yes Advance Directives Date on File: 04/14/22 service: No Current occupational status: disabled Physical Exam ED Vital Signs: Vital Signs - 24 hr 06/26/22 11:35 Temperature 97.8 F Pulse Rate 80 Respiratory Rate 20 Blood Pressure 153/84 H Pulse Oximetry 99 Oxygen Delivery Method Nasal Cannula BMI result Body Mass Index 45.4 Course Course Course Narrative: 1150: Plan for blood work, ua, ekg, cxr. Plan for case management for shortterm rehab Discharge Plan Discharge Prescriptions: No Action trazodone 50 mg tablet 100 mg PO BEDTIME phenytoin sodium extended 100 mg capsule 300 mg PO DAILY@0730 isosorbide mononitrate 60 mg tablet extended release 24 hr 60 mg PO QAM pantoprazole 40 mg tablet,delayed release (DR/EC) 40 mg PO DAILY metformin 1,000 mg tablet 1,000 mg PO QAM hydroxyzine HCl 25 mg tablet 25 mg PO TID PRN (Reason: Itching) phenytoin sodium extended 100 mg capsule 400 mg PO BEDTIME gabapentin 400 mg capsule 400 mg PO 5XD Rx Instructions: hold for sedation oxycodone 5 mg tablet 5 mg PO BID PRN (Reason: severe pain) Eliquis 5 mg tablet 5 mg PO BID albuterol sulfate 90 mcg/actuation Hfa Aerosol Inhaler 2 puff INHALATION Q4-6H PRN (Reason: Shortness Of Breath Or Wheezing) metoprolol succinate 25 mg Tablet Extended Release 24 Hr 75 mg PO BID 30 Days Qty: 180 1RF Protocol: Hold for SBP/HR < HOLD for SBP < : 90 HOLD for HR < : 60 atorvastatin 80 mg tablet 1 tab PO DAILY torsemide 20 mg tablet 2 tab PO DAILY quetiapine 200 mg tablet 1 tab PO BID quetiapine 100 mg tablet 1 tab PO QAM PRN (Reason: Insomnia) lorazepam 2 mg tablet 2 tab PO TID PRN (Reason: anxiety) duloxetine 30 mg capsule,delayed release(DR/EC) 30 mg PO DAILY duloxetine 30 mg capsule,delayed release(DR/EC) 60 mg PO BEDTIME Jardiance 10 mg tablet 1 tab PO DAILY cyanocobalamin (vitamin B-12) 1,000 mcg Tablet 1,000 mcg PO DAILY insulin lispro 100 unit/mL Solution 1 sliding scale dose SUBCUT USEASDIRECTD Protocol: Insulin Correction Scale Less than or equal to 110 ---- Give (units): 0 111 to 150 Give (units): 0 151 to 200 Give (units): 2 201 to 250 Give (units): 4 251 to 300 Give (units): 6 301 to 350 Give (units): 8 Greater than 350 Give (units): 10 Call MD if Blood Glucose > : 350 fluticasone propionate 50 mcg/actuation [place],Suspension 1 spray INTRANASAL DAILY Rx Instructions: administer into each nostril insulin glargine [Lantus Solostar U-100 Insulin] 100 unit/mL (3 mL) Insulin Pen 20 unit SUBCUT BEDTIME cholecalciferol (vitamin D3) 50 mcg (2,000 unit) Tablet 50 mcg PO DAILY guaifenesin 100 mg/5 mL Liquid 200 mg PO Q6H PRN (Reason: Cough) Qty: 473 0RF prednisone 20 mg tablet 20 mg PO DAILY Qty: 4 0RF
--- NOTE | 2022-06-26 12:03 | ED.URI ---
HPI - URI/Sore Throat General Chief Complaint: General Medical Stated Complaint: flu like symptoms Time Seen by Provider: 06/26/22 11:36 Source: patient Mode of arrival: EMS Limitations: physical limitation History of Present Illness HPI Narrative: 62-year-old male with a past medical history of asthma, AFib on Eliquis, CAD, dm 2, HTN, TIA, and recent diagnosis of COVID-19 on 06/15/22 presents emergency department, by EMS, for complaints of generalized weakness, fatingue, cough, and persistent diarrhea with poor PO intake due to 'upset stomach'. He states he was hospitalized here, at [facility], for acute dehydration due to Covid from on 2 L NC home O2, prednisone, and quaifenesin cough medication. He reports that he is nonambulatory at home, uses a wheelchair, and has been struggling to care for himself at home due to weakness and fatigue. He reports shortness of breath with exertion, chills, fatigue, and weakness. He states he has not taken his temperature at home is unsure if he has had fevers. He denies chest pain, nausea, vomiting, constipation, confusion, headache, or vision changes. MD elicited complaint: cough Pertinent past history: asthma Onset (ago): day(s) Consistency: constant Severity: moderate Description of mucous: clear Able to tolerate fluids by mouth: Yes Exacerbating factors: exertion Relieving factors: nothing Associated symptoms: denies other symptoms Treatments prior to arrival: none Related Data Home Medications Medication Instructions Recorded Confirmed hydroxyzine HCl 25 mg tablet 25 mg PO TID PRN Itching 03/23/20 06/26/22 isosorbide mononitrate 60 mg 60 mg PO QAM 03/23/20 06/26/22 tablet,extended release 24 hr metformin 1,000 mg tablet 1,000 mg PO QAM 03/23/20 06/26/22 pantoprazole 40 mg tablet,delayed 40 mg PO DAILY 03/23/20 06/26/22 release phenytoin sodium extended 100 mg 300 mg PO DAILY@0730 03/23/20 06/26/22 capsule phenytoin sodium extended 100 mg 400 mg PO BEDTIME 03/23/20 06/26/22 capsule trazodone 50 mg tablet 100 mg PO BEDTIME 03/23/20 06/26/22 albuterol sulfate 90 mcg/actuation 2 puff inhalation Q4-6H PRN 04/13/22 06/26/22 aerosol inhaler Shortness Of Breath Or Wheezing apixaban 5 mg tablet (Eliquis) 5 mg PO BID 04/13/22 06/26/22 gabapentin 400 mg capsule 400 mg PO 5XD 04/13/22 06/26/22 oxycodone 5 mg tablet 5 mg PO BID PRN severe pain 04/13/22 06/26/22 atorvastatin 80 mg tablet 80 mg PO DAILY 06/15/22 06/26/22 cholecalciferol (vitamin D3) 50 50 mcg PO DAILY 06/15/22 06/26/22 mcg (2,000 unit) tablet cyanocobalamin (vitamin B-12) 1,000 mcg PO DAILY 06/15/22 06/26/22 1,000 mcg tablet duloxetine 30 mg capsule,delayed 30 mg PO DAILY@0900 06/15/22 06/26/22 release duloxetine 30 mg capsule,delayed 60 mg PO BEDTIME 06/15/22 06/26/22 release empagliflozin 10 mg tablet 10 mg PO DAILY 06/15/22 06/26/22 (Jardiance) fluticasone propionate 50 1 spray intranasal DAILY 06/15/22 06/26/22 mcg/actuation nasal spray,suspension insulin glargine 100 unit/mL (3 20 unit subcut BEDTIME 06/15/22 06/26/22 mL) subcutaneous pen (Lantus Solostar U-100 Insulin) insulin lispro 100 unit/mL 1 sliding scale dose subcut 06/15/22 06/26/22 subcutaneous solution USEASDIRECTD lorazepam 2 mg tablet 4 mg PO TID PRN anxiety 06/15/22 06/15/22 quetiapine 100 mg tablet 100 mg PO QAM 06/15/22 06/26/22 quetiapine 200 mg tablet 200 mg PO BID 06/15/22 06/26/22 torsemide 20 mg tablet 40 mg PO DAILY 06/15/22 06/26/22 guaifenesin 100 mg/5 mL oral liquid 200 mg PO Q6H PRN Cough 06/26/22 06/26/22 Previous Rx's Medication Instructions Recorded metoprolol succinate 25 mg 75 mg PO BID 30 days #180 tabs 04/17/22 tablet,extended release 24 hr prednisone 20 mg tablet 20 mg PO DAILY #4 tabs 06/24/22 Allergies Allergy/AdvReac Type Severity Reaction Status Date / Time aspirin Allergy Severe OCCASIONAL Verified 04/08/22 14:18 RASH / TONGUE SWELLING, Hives, throat swellig bee pollen [BEE STINGS] Allergy Severe ANAPHYLAXIS Verified 04/08/22 14:18 Penicillins Allergy Severe ANAPHYLAXIS Verified 04/08/22 14:18 povidone-iodine [Betadine] Allergy Severe Redness of Verified 04/08/22 14:18 Skin soap [Betadine] Allergy Severe Redness of Verified 04/08/22 14:18 Skin spider venom [SPIDER BITES] Allergy Severe Hives Verified 04/08/22 14:18 amoxicillin Allergy Intermediate Hives Verified 04/08/22 14:18 clindamycin Allergy Mild RASH Verified 04/08/22 14:18 latex [Latex] Allergy Mild RASH Verified 04/08/22 14:18 shrimp Allergy Hives Verified 06/21/22 11:48 bupropion [From WELLBUTRIN] AdvReac Severe SEIZURES Verified 04/08/22 14:18 adhesive tape AdvReac Mild Rash Verified 04/14/22 15:55 Review of Systems Review of Systems: In addition to documented HPI above, the additional ROS was obtained: CONSTITUTIONAL: Denies headache, night sweats, or weight loss EYES: Denies vision changes, eye pain, swelling, redness, foreign body, discharge ENT: Hearing normal. Denies sore throat, swallowing difficulty, congestion, ear pain, or hoarseness CV: Denies chest pain or epigastric pain. No edema, palpitations, or dyspnea on exertion RESP: Denies shortness of breath at rest. Denies wheezing or dyspnea. Denies smoke exposure GI: Denies abdominal pain. Denies nausea, vomiting, constipation or diarrhea. No melena or hematochezia. : Denies dysuria, urinary frequency, urinary incontinence/retention, urgency. Denies flank pain, hematuria MSK: Denies recent trauma, change in gait, myalgias, joint swelling or pain SKIN: Denies no lesions, rashes, or sores NEURO: Denies new numbness, tingling, dizziness, paresthesias or weakness. No loss of consciousness. Denies headache ENDOCRINE: Denies unexpected weight loss. Denies polyuria, polydipsia. No temperature intolerance HEME/ONC: Denies bleeding disorders, easy bruising, or lymphadenopathy PSYCH: Denies anxiety/panic, depression, SI/HI, or social issues. Yes all other systems are reviewed and are negative [facility] Past Medical History Attestation statement: The following information was validated with the patient. Source: old records reviewed Medical History Anxiety Arthritis Asthma Atrial fibrillation with rapid ventricular response Coronary artery disease Diabetes mellitus, type 2 Fall Hypertension Multifactorial gait disorder Obesity PTSD (post-traumatic stress disorder) TIA (transient ischemic attack) Transient ischemic attack (TIA) Social History Social History Household Members: None Housing: Apartment Do you presently have visiting nurse or other home services: Yes Alcohol intake: former Patient Tobacco Use Status: Never used Tobacco Second Hand Smoke Exposure: No Advance Directives: Yes Advance Directives on File: Yes Advance Directives Date on File: 04/14/22 service: No Current occupational status: disabled Physical Exam Vital Signs: Vital Signs: Last Vital Signs Temp 98.0 F 06/27/22 08:47 Pulse 88 06/27/22 08:47 Resp 16 06/27/22 08:47 BP 146/93 H 06/27/22 08:47 Pulse Ox 97 06/27/22 08:47 O2 Del Method 06/27/22 08:47 O2 Flow Rate 2 06/27/22 08:47 Oxygen Flow Rate 2 06/26/22 11:35 BMI result Body Mass Index 45.4 Nursing notes and vital signs reviewed. GENERAL APPEARANCE: A&0 x 4, pale, tired appearing HENMT: Normal to inspection, atraumatic, face symmetrical. Normal external ears, nose, and oropharynx clear. EYE: PERRLA, EOM intact, structures appear normal NECK: Supple without lymphadenopathy. No stiffness or restricted ROM. CHEST: Normal to inspection HEART: Irregular rhythm. No M/R/G LUNGS: LS diminished. Able to speak in complete sentences. No crackles, wheezes, or rhonchi auscultated ABDOMEN: Soft, nontender, nondistended. Normal bowel sounds noted BACK: No CVAT, no obvious deformity EXTREMITIES: Moving all extremities with limited ROM and difficulty. No cyanosis, clubbing, or edema. Normal capillary refill. NEUROLOGICAL: Alert and oriented, moving all extremities with upper 3/4 strength and 1/4 in lower extremities. CN not formally tested but appearing grossly intact. Cognition normal SKIN: Warm and dry. LLE with eythema and scaling above ankle. Left knee with noted swelling, pain on palpation, without erythema or eccymosis: followed by PCP per pt PSYCH: Cooperative, normal affect, normal thought process Course Course Course Narrative: 1150: Plan for blood work, EKG, CXR, nasal swab for serology as last was > 10 days ago to rule out concurrent respiratory virus, and UA Medications Administered Generic Name Dose Route Start Last Admin Trade Name Freq PRN Reason Stop Dose Admin Apixaban 5 mg 06/27/22 09:00 06/27/22 09:01 Apixaban 5 Mg Tablet PO 5 mg BID YOHAN Administration Atorvastatin Calcium 80 mg 06/27/22 09:00 06/27/22 09:00 Atorvastatin Calcium 80 Mg Tablet PO 80 mg DAILY YOHAN Administration Cyanocobalamin 1,000 mcg 06/27/22 09:00 06/27/22 09:01 Cyanocobalamin (Vitamin B-12) 1,000 Mcg Tablet PO 1,000 mcg DAILY YOHAN Administration Duloxetine HCl 30 mg 06/27/22 09:00 06/27/22 09:01 Duloxetine Hcl 30 Mg Capsule.Dr PO 30 mg DAILY YOHAN Administration Gabapentin 400 mg 06/27/22 10:00 06/27/22 09:01 Gabapentin 400 Mg Capsule PO 400 mg 5XD YOHAN Administration Isosorbide Mononitrate 60 mg 06/27/22 09:00 06/27/22 09:01 Isosorbide Mononitrate 60 Mg Tab.Er.24h PO 60 mg DAILY YOHAN Administration Protocol Metformin HCl 1,000 mg 06/27/22 09:00 06/27/22 09:00 Metformin Hcl 1,000 Mg Tablet PO 1,000 mg DAILY YOHAN Administration Metoprolol Succinate 75 mg 06/27/22 09:00 06/27/22 08:59 Metoprolol Succinate Er 25 Mg Tab.Er.24h PO 75 mg BID YOHAN Administration Protocol Morphine Sulfate 15 mg 06/27/22 09:00 06/27/22 09:00 Morphine Sulfate Er 15 Mg Tablet.Er PO 15 mg Q8H YOHAN Administration Phenytoin Sodium 300 mg 06/27/22 08:45 06/27/22 09:01 Phenytoin Sodium Extended 100 Mg Capsule PO 300 mg DAILY@0730 [facility] Administration Torsemide 40 mg 06/27/22 09:00 06/27/22 09:00 Torsemide 20 Mg Tablet PO 40 mg DAILY YOHAN Administration Protocol Vitamin D 50 mcg 06/27/22 09:00 06/27/22 09:00 Cholecalciferol (Vitamin D3) 25 Mcg Tablet PO 50 mcg DAILY YOHAN Administration Discontinued Medications Generic Name Dose Route Start Last Admin Trade Name Leonel PRN Reason Stop Dose Admin Fentanyl 25 mcg 06/26/22 22:41 06/26/22 23:18 Fentanyl Citrate/Pf 100 Mcg/2 Ml Vial IVPUSH 06/26/22 22:42 25 mcg ONCE ONE Administration Protocol Sodium Chloride 1,000 mls @ 999 mls/hr 06/26/22 16:30 06/26/22 18:02 Ns IV 06/26/22 17:30 Infused .Q1H1M YOHAN Infusion Oxycodone HCl 5 mg 06/26/22 19:19 06/26/22 19:54 Oxycodone Hcl Immed Release 5 Mg Tablet PO 5 mg Q6H PRN Administration Pain, Moderate (Pain Scale 4-6 Medical Decision Making Medical Decision Making MDM Narrative: 62-year-old male with a past medical history of asthma, AFib on Eliquis, CAD, dm 2, HTN, TIA, and recent diagnosis of COVID-19 on 06/15/22 presents emergency department, by EMS, for complaints of generalized weakness, fatingue, cough, and persistent diarrhea with poor PO intake due to 'upset stomach'. blood work remarkable for anemia with hemoglobin 10.3 although improved from hemoglobin of 9.3 on 06/21/2022, glucose 263, and serology continues to be positive for COVID-19. Chest x-ray showing no pneumothorax, pleural effusion, and unchanged cardiomediastinal silhouette with clear lungs. EKG is AFib with right bundle-branch block with no significant change when compared to EKG done on 06/20/2022. Plan for 1 L normal saline bolus given for persistent diarrhea and poor p.o. intake. Patient is medically cleared for discharge, however; patient states that he does not feel safe going home as he has been significantly weaker and more fatigued than his usual. He states he is wheelchair-bound and does not feel as if you would be able to transfer himself out of the wheelchair into his bed or toilet. PT consulted for short-term rehab evaluation. Case Management contacted. Lab Data MDM Lab Attestation statement: I reviewed the patient's lab results. 06/26/22 12:51 06/26/22 12:51 Labs: Lab Results 06/26/22 06/26/22 06/26/22 Range/Units 12:51 12:51 16:09 WBC 6.8 (4.8-10.8) X10*3/uL RBC 4.78 (4.60-5.80) X10*6/uL Hgb 10.3 L (14.0-18.0) g/dl Hct 36.7 L (42.0-52.0) % MCV 76.8 L (80.0-98.0) fL MCH 21.5 L (27.0-33.0) pg MCHC 28.1 L (31.0-36.0) g/dl RDW 17.9 H (11.0-16.0) % Plt Count 411 H D (160-400) X10*3/uL MPV 10.3 (9.4-12.4) fL Immature Gran % (Auto) 0.1 (0.0-0.4) % Neut % (Auto) 79.0 H (45-73) % Lymph % (Auto) 13.0 L (20-40) % [place] % (Auto) 7.4 (2-11) % Eos % (Auto) 0.4 (0-4) % Baso % (Auto) 0.1 (0-2) % Lymph # (Auto) 0.9 L (1.2-4.9) X10*3/uL [place] # (Auto) 0.5 (0.1-1.2) X10*3/uL Eos # (Auto) 0.0 (0.0-0.4) X10*3/uL Baso # (Auto) 0.0 (0.0-0.2) X10*3/uL Abs Immat Gran (auto) 0.01 (0.00-0.03) X10*3/uL Absolute Neuts (auto) 5.4 (2.0-8.3) x10*3/uL Absolute Nucleated RBC 0.000 (0.0-0.012) X10*3/uL Nucleated RBC % (auto) 0.0 (0.0-0.2) /100WBC Sodium 139 (135-145) mmol/L Potassium 3.9 (3.3-5.1) mmol/L Chloride 101 (96-108) mmol/L Carbon Dioxide 27 (22-29) mmol/L Anion Gap 15 (12-20) BUN 9 (9-16) mg/dL Creatinine 0.73 (0.5-1.4) mg/dL Estim Creat Clear Calc 168.7 Estimated GFR > 60 Random Glucose 263 H (60-115) mg/dL Calcium 8.8 D (8.4-10.2) mg/dL Magnesium 1.6 (1.6-2.6) mg/dL Total Bilirubin 0.3 (0.0-1.0) mg/dL AST 12 (5-37) U/L ALT 13 (0-40) U/L Alkaline Phosphatase 97 (39-117) U/L Total Protein 6.0 L (6.5-8.0) g/dL Albumin 3.3 L (3.5-5.0) g/dL Urine Color Urine Appearance Urine pH (5.0-9.0) Ur Specific [place] (1.005-1.025) Urine Protein (Neg-Trace) mg/dL Urine Glucose (UA) (Negative) mg/dL Urine Ketones (Negative) mg/dL Urine Blood (Negative) Urine Nitrite (Negative) Ur Leukocyte Esterase (Negative) Urine RBC (0-2) /HPF Urine WBC (0-5) /HPF Ur Squamous Epith Cells (0-2) /HPF Urine Bacteria (None Seen) Hyaline Casts (0-2) /LPF Influenza Type A (PCR) NEGATIVE (Negative) Influenza Type B (PCR) NEGATIVE (Negative) RSV RNA Qual (PCR) NEGATIVE (Negative) SARS-CoV-2 RNA (RT-PCR) POSITIVE A (Negative) 06/27/22 Range/Units 04:46 WBC (4.8-10.8) X10*3/uL RBC (4.60-5.80) X10*6/uL Hgb (14.0-18.0) g/dl Hct (42.0-52.0) % MCV (80.0-98.0) fL MCH (27.0-33.0) pg MCHC (31.0-36.0) g/dl RDW (11.0-16.0) % Plt Count (160-400) X10*3/uL MPV (9.4-12.4) fL Immature Gran % (Auto) (0.0-0.4) % Neut % (Auto) (45-73) % Lymph % (Auto) (20-40) % [place] % (Auto) (2-11) % Eos % (Auto) (0-4) % Baso % (Auto) (0-2) % Lymph # (Auto) (1.2-4.9) X10*3/uL [place] # (Auto) (0.1-1.2) X10*3/uL Eos # (Auto) (0.0-0.4) X10*3/uL Baso # (Auto) (0.0-0.2) X10*3/uL Abs Immat Gran (auto) (0.00-0.03) X10*3/uL Absolute Neuts (auto) (2.0-8.3) x10*3/uL Absolute Nucleated RBC (0.0-0.012) X10*3/uL Nucleated RBC % (auto) (0.0-0.2) /100WBC Sodium (135-145) mmol/L Potassium (3.3-5.1) mmol/L Chloride (96-108) mmol/L Carbon Dioxide (22-29) mmol/L Anion Gap (12-20) BUN (9-16) mg/dL Creatinine (0.5-1.4) mg/dL Estim Creat Clear Calc Estimated GFR Random Glucose (60-115) mg/dL Calcium (8.4-10.2) mg/dL Magnesium (1.6-2.6) mg/dL Total Bilirubin (0.0-1.0) mg/dL AST (5-37) U/L ALT (0-40) U/L Alkaline Phosphatase (39-117) U/L Total Protein (6.5-8.0) g/dL Albumin (3.5-5.0) g/dL Urine Color Dark Yellow Urine Appearance Clear Urine pH 6.5 (5.0-9.0) Ur Specific [place] >= 1.030 H (1.005-1.025) Urine Protein 100 (2+) H (Neg-Trace) mg/dL Urine Glucose (UA) 250 H (Negative) mg/dL Urine Ketones Trace (Negative) mg/dL Urine Blood Negative (Negative) Urine Nitrite Negative (Negative) Ur Leukocyte Esterase Negative (Negative) Urine RBC 0-2 (0-2) /HPF Urine WBC 0-5 (0-5) /HPF Ur Squamous Epith Cells 3-5 (0-2) /HPF Urine Bacteria None Seen (None Seen) Hyaline Casts 0-2 (0-2) /LPF Influenza Type A (PCR) (Negative) Influenza Type B (PCR) (Negative) RSV RNA Qual (PCR) (Negative) SARS-CoV-2 RNA (RT-PCR) (Negative) Independent Interpretation I performed an independent interpretation of an: EKG Interpretation: I have independently reviewed the EKG as atrial fibrillation, nonischemic. With no changes in EKG when compared to previous EKG done 06/20/2022. Vent. Rate : 091 BPM ? ? Atrial Rate : 000 BPM ?? P-R Int : 000 ms? QRS Dur : 166 ms ? ?QT Int : 428 ms ? ? ? P-R-T Axes : 000 267 011 degrees ?? QTc Int : 526 ms ? Atrial fibrillation Right bundle branch block Inferior infarct (cited on or before 24-MAR-2020) Abnormal ECG When compared with ECG of 20-JUN-2022 13:34, No significant change was found Radiology Impression Radiologist Impression: I have independently reviewed the chest x-ray showing no pneumothorax, pleural effusion, or other cardiopulmonary processes. EXAMINATION: XR chest 1V CLINICAL INFORMATION: Reason for Exam shortness of breath COMPARISON: Chest radiograph? 06/20/2022 TECHNIQUE: One view of the chest FINDINGS: Clear lungs. No pneumothorax or pleural effusion. Unchanged cardiomediastinal silhouette. XR/XR chest 1V IMPRESSION: ? *? Clear lungs. Dictated By: Jenna Rojas MD Signed By: <Electronically signed by Jenna Rojas MD in OV> 06/26/22 1240 DD/ 1159 TD/TT:? Extracorporeal Technician: Discharge Plan Discharge Clinical Impression: Weakness, COVID-19 Patient Disposition: Still a Patient Prescriptions: No Action trazodone 50 mg tablet 100 mg PO BEDTIME phenytoin sodium extended 100 mg capsule 300 mg PO DAILY@0730 isosorbide mononitrate 60 mg tablet extended release 24 hr 60 mg PO QAM pantoprazole 40 mg tablet,delayed release (DR/EC) 40 mg PO DAILY metformin 1,000 mg tablet 1,000 mg PO QAM hydroxyzine HCl 25 mg tablet 25 mg PO TID PRN (Reason: Itching) phenytoin sodium extended 100 mg capsule 400 mg PO BEDTIME guaifenesin 100 mg/5 mL Liquid 200 mg PO Q6H PRN (Reason: Cough) gabapentin 400 mg capsule 400 mg PO 5XD Rx Instructions: hold for sedation oxycodone 5 mg tablet 5 mg PO BID PRN (Reason: severe pain) Eliquis 5 mg tablet 5 mg PO BID albuterol sulfate 90 mcg/actuation Hfa Aerosol Inhaler 2 puff INHALATION Q4-6H PRN (Reason: Shortness Of Breath Or Wheezing) metoprolol succinate 25 mg Tablet Extended Release 24 Hr 75 mg PO BID 30 Days Qty: 180 1RF Protocol: Hold for SBP/HR < HOLD for SBP < : 90 HOLD for HR < : 60 atorvastatin 80 mg tablet 80 mg PO DAILY torsemide 20 mg tablet 40 mg PO DAILY quetiapine 200 mg tablet 200 mg PO BID quetiapine 100 mg tablet 100 mg PO QAM lorazepam 2 mg tablet 4 mg PO TID PRN (Reason: anxiety) duloxetine 30 mg capsule,delayed release(DR/EC) 30 mg PO DAILY@0900 duloxetine 30 mg capsule,delayed release(DR/EC) 60 mg PO BEDTIME Jardiance 10 mg tablet 10 mg PO DAILY cyanocobalamin (vitamin B-12) 1,000 mcg Tablet 1,000 mcg PO DAILY insulin lispro 100 unit/mL Solution 1 sliding scale dose SUBCUT USEASDIRECTD Protocol: Insulin Correction Scale Less than or equal to 110 ---- Give (units): 0 111 to 150 Give (units): 0 151 to 200 Give (units): 2 201 to 250 Give (units): 4 251 to 300 Give (units): 6 301 to 350 Give (units): 8 Greater than 350 Give (units): 10 Call MD if Blood Glucose > : 350 fluticasone propionate 50 mcg/actuation [place],Suspension 1 spray INTRANASAL DAILY Rx Instructions: administer into each nostril insulin glargine [Lantus Solostar U-100 Insulin] 100 unit/mL (3 mL) Insulin Pen 20 unit SUBCUT BEDTIME cholecalciferol (vitamin D3) 50 mcg (2,000 unit) Tablet 50 mcg PO DAILY prednisone 20 mg tablet 20 mg PO DAILY Qty: 4 0RF
[2022-06-26 13:25] VITALS: BP 159/79; PULSE 101; RESP 20; O2SAT 100
[2022-06-26 13:34] LABS: Alanine Aminotransferase 13 U/L (0-40); Albumin Level 3.3 g/dL (3.5-5.0); Alkaline Phosphatase 97 U/L (39-117); Anion Gap 15 (12-20); Aspartate Amino Transferase 12 U/L (5-37); Bilirubin Total 0.3 mg/dL (0.0-1.0); Blood Urea Nitrogen 9 mg/dL (9-16); Calcium 8.8 mg/dL (8.4-10.2); Carbon Dioxide 27 mmol/L (22-29); Chloride 101 mmol/L (96-108); Creatinine Clr Calc Pharmacy 168.7; Estimated Glomerular Filt Rate > 60; Glucose Random 263 mg/dL (60-115); Magnesium 1.6 mg/dL (1.6-2.6); Potassium 3.9 mmol/L (3.3-5.1); Sodium 139 mmol/L (135-145)
[2022-06-26 13:38] LABS: Influenza A PCR NEGATIVE (Negative); Influenza B PCR NEGATIVE (Negative); Resp Syncy Virus RNA Qual PCR NEGATIVE (Negative); SARS COV2 PCR INHOUSE POSITIVE (Negative)
[2022-06-26 16:15] LABS: Basophils Percent Auto 0.1 % (0-2); Eosinophils Percent Auto 0.4 % (0-4); Hematocrit 36.7 % (42.0-52.0); Hemoglobin 10.3 g/dl (14.0-18.0); Imm Gran Abs Auto 0.01 X10*3/uL (0.00-0.03); Imm Gran Pct Auto 0.1 % (0.0-0.4); Lymphocytes Absolute Auto 0.9 X10*3/uL (1.2-4.9); Mean Corpuscular HGB Conc 28.1 g/dl (31.0-36.0); Mean Corpuscular Hemoglobin 21.5 pg (27.0-33.0); Mean Corpuscular Volume 76.8 fL (80.0-98.0); Mean Platelet Volume 10.3 fL (9.4-12.4); Monocytes Absolute Auto 0.5 X10*3/uL (0.1-1.2); Monocytes Percent Auto 7.4 % (2-11); Neutrophils Absolute Auto 5.4 x10*3/uL (2.0-8.3); Platelet Count 411 X10*3/uL (160-400); Red Blood Count 4.78 X10*6/uL (4.60-5.80); Red Cell Distribution Width 17.9 % (11.0-16.0); White Blood Count 6.8 X10*3/uL (4.8-10.8)
[2022-06-26] MEDS: 0.9 % Sodium Chloride 1,000 ML 999 ML IV (17:14)
--- NOTE | 2022-06-26 17:45 | PHA.MEDREC ---
Pharmacy Consult ? Medication Reconciliation Pharmacy has completed the medication reconciliation. Tried to get medication list from patient. He states he knows none of them but was here last week and nothing changed . I used discharge list from last admission to compile medication list and he says last dose was a few days ago but doesn't know when he last took any of his home meds.
[2022-06-26 18:00] VITALS: BP 140/56; PULSE 67; RESP 16; TEMP 36.7; O2SAT 97
--- NOTE | 2022-06-26 18:31 | PC.NURSE ---
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
[2022-06-26] MEDS: oxyCODONE HCl Immed Release 5 MG TABLET PO (19:54)
--- NOTE | 2022-06-26 19:56 | PC.NURSE ---
Pt ESPINAL x4. Pt was medicated per MAR for 10/10 bilateral lower abdominal pain. Pt received warm blanket per his request. Pt verbalizes to call for help using the call light.
[2022-06-26 20:08] VITALS: BP 140/74; PULSE 101; RESP 18; TEMP 36.6; O2SAT 99
[2022-06-26 22:20] VITALS: BP 143/80; PULSE 96; RESP 18; TEMP 36.6; O2SAT 99
[2022-06-26 23:18] VITALS: RESP 18
[2022-06-26] MEDS: fentaNYL citrate/PF 100 MCG/2 ML VIAL 25 MCG IVPUSH (23:18)
[2022-06-27 04:47] VITALS: BP 135/77; PULSE 95; RESP 18; TEMP 36.6; O2SAT 97
--- NOTE | 2022-06-27 04:47 | MHC.EDTECH ---
pt incontinent of bowel and bladder. pt. cleaned repositioned. [place] catheter placed in order to collect urine sample.
[2022-06-27 04:57] LABS: Appearance Urine Clear; Color Urine Dark Yellow; Glucose Urine UA 250 mg/dL (Negative); Leukocyte Esterase Urine Negative (Negative); Nitrite Urine Negative (Negative); PH 6.5 (5.0-9.0); Specific Gravity - Urine >= 1.030 (1.005-1.025); UMIC TRIGGER UACC YES; Urine Blood Negative (Negative); Urine Ketones Trace mg/dL (Negative); Urine Protein 100 (2+) mg/dL (Neg-Trace)
[2022-06-27 05:02] LABS: Bacteria Urine None Seen (None Seen); Hyaline Casts Urine 0-2 /LPF (0-2); RBC Urine 0-2 /HPF (0-2); WBC Urine 0-5 /HPF (0-5)
--- NOTE | 2022-06-27 08:36 | ECG_ITS ---
Test Reason : FAST HEART RATE Blood Pressure : / mmHG Vent. Rate : 097 BPM Atrial Rate : 000 BPM P-R Int : 000 ms QRS Dur : 162 ms QT Int : 414 ms P-R-T Axes : 000 -81 039 degrees QTc Int : 525 ms Atrial fibrillation Left axis deviation Right bundle branch block Inferior infarct (cited on or before 24-MAR-2020) Abnormal ECG When compared with ECG of 26-JUN-2022 12:07, No significant change was found Referred By: Ruma Landaverde Electronically Signed By:NANCY HOLT MD
--- NOTE | 2022-06-27 08:39 | PC.NURSE ---
EKG obtained after patients heart rate 92-115 on monitor and patient reports feeling sweaty . Malia Landaverde aware . New orders being obtained for medication . patient aware of plan of care .
[2022-06-27 08:47] VITALS: BP 146/93; PULSE 88; RESP 16; TEMP 36.7; O2SAT 97
[2022-06-27] MEDS: Metoprolol Succinate ER 25 MG TAB.ER.24H 75 MG PO ×2 (08:59→21:14)
[2022-06-27] MEDS: Cholecalciferol (Vitamin D3) 25 MCG TABLET 50 MCG PO (09:00)
[2022-06-27] MEDS: metFORMIN HCl 1,000 MG TABLET 1000 MG PO (09:00)
[2022-06-27] MEDS: Morphine Sulfate ER 15 MG TABLET.ER PO ×2 (09:00→19:43)
[2022-06-27] MEDS: Atorvastatin Calcium 80 MG TABLET PO (09:00)
[2022-06-27] MEDS: Torsemide 20 MG TABLET 40 MG PO (09:00)
[2022-06-27] MEDS: Phenytoin Sodium Extended 100 MG CAPSULE 300 MG PO ×2 (09:01→21:15)
[2022-06-27] MEDS: DULoxetine HCl 30 MG CAPSULE.DR PO (09:01)
[2022-06-27] MEDS: Apixaban 5 MG TABLET PO ×2 (09:01→21:13)
[2022-06-27] MEDS: Isosorbide Mononitrate 60 MG TAB.ER.24H PO (09:01)
[2022-06-27] MEDS: Cyanocobalamin (Vitamin B-12) 1,000 MCG TABLET 1000 MCG PO (09:01)
[2022-06-27] MEDS: Gabapentin 400 MG CAPSULE PO ×3 (09:01→21:27)
--- NOTE | 2022-06-27 09:42 | PC.NURSE ---
ultrasound at bedside patient aware of plan of care .
[2022-06-27] MEDS: QUEtiapine Fumarate 200 MG TABLET PO ×2 (10:12→21:26)
[2022-06-27] MEDS: QUEtiapine Fumarate 100 MG TABLET PO (10:12)
[2022-06-27] MEDS: Insulin Lispro 100 UNIT/ML 3 ML VIAL SUBCUT (10:20)
[2022-06-27 10:28] LABS: Glucose, Whole Blood 191 mg/dL (60-115)
[2022-06-27] MEDS: Morphine Sulfate 4 MG/ML CARTRIDGE IVPUSH (12:33)
[2022-06-27] MEDS: ondansetron HCL 4 MG/2 ML VIAL IVPUSH (12:34)
[2022-06-27 12:36] LABS: Glucose, Whole Blood 220 mg/dL (60-115)
--- NOTE | 2022-06-27 12:40 | PC.NURSE ---
Patient medicated with morphine IVP as ordered for abdominal pain 10 out of 10 . patient aware of plan of care .
--- NOTE | 2022-06-27 12:45 | PC.NURSE ---
Patient currently put on NPO awaiting scan in IR . patient aware of plan of care .
[2022-06-27 12:53] LABS: MANUAL DIFF FLAG NO
[2022-06-27 12:58] LABS: Eosinophils Percent Auto 0.1 % (0-4); Hematocrit 35.2 % (42.0-52.0); Hemoglobin 9.9 g/dl (14.0-18.0); Imm Gran Abs Auto 0.02 X10*3/uL (0.00-0.03); Imm Gran Pct Auto 0.3 % (0.0-0.4); Lymphocytes Absolute Auto 0.6 X10*3/uL (1.2-4.9); Lymphocytes Percent Auto 9.2 % (20-40); Mean Corpuscular HGB Conc 28.1 g/dl (31.0-36.0); Mean Corpuscular Hemoglobin 21.5 pg (27.0-33.0); Mean Corpuscular Volume 76.5 fL (80.0-98.0); Monocytes Absolute Auto 0.5 X10*3/uL (0.1-1.2); Monocytes Percent Auto 6.6 % (2-11); Neutrophils Absolute Auto 5.8 x10*3/uL (2.0-8.3); Neutrophils Percent Auto 83.8 % (45-73); Platelet Count 362 X10*3/uL (160-400); Red Cell Distribution Width 17.5 % (11.0-16.0); White Blood Count 6.9 X10*3/uL (4.8-10.8)
[2022-06-27 13:04] LABS: Estimated Average Glucose 212 mg/dL
[2022-06-27 13:10] LABS: Amylase 19 U/L (28-100)
[2022-06-27 13:13] LABS: INTERNATIONAL NORM RATIO 1.1 (0.9-1.1); Prothrombin Time 13.1 SEC (10.0-13.1)
[2022-06-27 13:19] LABS: Alanine Aminotransferase 10 U/L (0-40); Albumin Level 3.2 g/dL (3.5-5.0); Alkaline Phosphatase 102 U/L (39-117); Anion Gap 13 (12-20); Aspartate Amino Transferase 9 U/L (5-37); Bilirubin Total 0.4 mg/dL (0.0-1.0); Blood Urea Nitrogen 9 mg/dL (9-16); Calcium 8.6 mg/dL (8.4-10.2); Carbon Dioxide 29 mmol/L (22-29); Chloride 103 mmol/L (96-108); Creatinine Clr Calc Pharmacy 189.5; Estimated Glomerular Filt Rate > 60; Glucose Random 216 mg/dL (60-115); Lactate Dehydrogenase 119 U/L (118-273); Lipase 10 U/L (8-78); Magnesium 1.6 mg/dL (1.6-2.6); Potassium 3.8 mmol/L (3.3-5.1); Sodium 141 mmol/L (135-145); Total Protein 5.6 g/dL (6.5-8.0)
[2022-06-27] MEDS: iohexoL 350 MG/ML 100 ML INFUS..BTL IV (13:53)
[2022-06-27 14:03] VITALS: BP 108/71; PULSE 81; RESP 14; TEMP 36.7; O2SAT 97
--- NOTE | 2022-06-27 14:18 | P.CONGS_ITS ---
History of Present Illness Consult details Consult date: 06/27/22 Reason for consult: abdominal pain Narrative: The patient is a 62-year-old gentleman with a history of morbid obesity, poorly controlled type 2 diabetes with a hemoglobin A1c of 9.0, O2 dependent, ob structive sleep apnea, AFib anticoagulated with Eliquis, a prior history of gallbladder problems requiring ? percutaneous drainage at [facility] and patient reports a catheter being placed for 3 months. The patient presents with a COVID infection and was initially admitted to the hospitalist service and subsequently discharged but then developed abdominal pain. Abdominal ultrasound confirmed cholelithiasis and gallbladder wall edema concerning for acute cholecystitis. I recommended repeating labs and obtaining a CT as well as a HIDA scan since the patient is quite obviously a high risk as evidence by his history of non operative management of prior gallbladder problems. Patient reports his abdominal pain is improving at this time. He states he has not eaten anything for 3 days and is hungry. He denies any chest pain, difficulty breathing or shortness of breath. Review of Systems Review of Systems: Yes all other systems are reviewed and are negative Constitutional: Constitutional: Reports as per [facility] Past Medical History Medical History Anxiety Arthritis Asthma Atrial fibrillation with rapid ventricular response Coronary artery disease Diabetes mellitus, type 2 Fall Hypertension Multifactorial gait disorder Obesity PTSD (post-traumatic stress disorder) TIA (transient ischemic attack) Transient ischemic attack (TIA) Social History Social History Household Members: None Housing: Apartment Do you presently have visiting nurse or other home services: Yes Alcohol intake: former Patient Tobacco Use Status: Never used Tobacco Second Hand Smoke Exposure: No Advance Directives: Yes Advance Directives on File: Yes Advance Directives Date on File: 04/14/22 service: No Current occupational status: disabled Meds Allergies Allergy/AdvReac Type Severity Reaction Status Date / Time aspirin Allergy Severe OCCASIONAL Verified 04/08/22 14:18 RASH / TONGUE SWELLING, Hives, throat swellig bee pollen [BEE STINGS] Allergy Severe ANAPHYLAXIS Verified 04/08/22 14:18 Penicillins Allergy Severe ANAPHYLAXIS Verified 04/08/22 14:18 povidone-iodine [Betadine] Allergy Severe Redness of Verified 04/08/22 14:18 Skin soap [Betadine] Allergy Severe Redness of Verified 04/08/22 14:18 Skin spider venom [SPIDER BITES] Allergy Severe Hives Verified 04/08/22 14:18 amoxicillin Allergy Intermediate Hives Verified 04/08/22 14:18 clindamycin Allergy Mild RASH Verified 04/08/22 14:18 latex [Latex] Allergy Mild RASH Verified 04/08/22 14:18 shrimp Allergy Hives Verified 06/21/22 11:48 bupropion [From WELLBUTRIN] AdvReac Severe SEIZURES Verified 04/08/22 14:18 adhesive tape AdvReac Mild Rash Verified 04/14/22 15:55 Active Medications: Current Medications Albuterol Sulfate (Albuterol Sulfate 90 Mcg 8 Gm Inhaler) 2 puff INHALE Q4H PRN PRN Reason: Shortness Of Breath Or Wheezing Apixaban (Apixaban 5 Mg Tablet) 5 mg PO BID [facility] Last Admin: 06/27/22 09:01 Dose: 5 mg Atorvastatin Calcium (Atorvastatin Calcium 80 Mg Tablet) 80 mg PO DAILY [facility] Last Admin: 06/27/22 09:00 Dose: 80 mg Cyanocobalamin (Cyanocobalamin (Vitamin B-12) 1,000 Mcg Tablet) 1,000 mcg PO DAILY [facility] Last Admin: 06/27/22 09:01 Dose: 1,000 mcg Duloxetine HCl (Duloxetine Hcl 30 Mg Capsule.) 30 mg PO DAILY [facility] Last Admin: 06/27/22 09:01 Dose: 30 mg Duloxetine HCl (Duloxetine Hcl 60 Mg Capsule.) 60 mg PO BEDTIME [facility] Empagliflozin (Empagliflozin 10 Mg Tablet) 10 mg PO DAILY [facility] Last Admin: 06/27/22 12:05 Dose: Not Given Fluticasone Propionate (Fluticasone Propionate Nasal 16 Gm [place]) 1 spray NOSTRIL-B DAILY [facility] Last Admin: 06/27/22 12:05 Dose: Not Given Gabapentin (Gabapentin 400 Mg Capsule) 400 mg PO 5XD [facility] Last Admin: 06/27/22 09:01 Dose: 400 mg Guaifenesin (Guaifenesin 100 Mg/5 Ml Liquid) 10 ml PO Q6H PRN PRN Reason: Cough Hydroxyzine HCl (Hydroxyzine Hcl 25 Mg Tablet) 25 mg PO TID PRN PRN Reason: Itching Insulin Glargine (Insulin Glargine,Hum.Rec.Anlog 100 Unit/Ml 10 Ml Vial) 20 unit SUBCUT BEDTIME [facility] Insulin Human Lispro (Insulin Lispro 100 Unit/Ml 3 Ml Vial) 0 unit SUBCUT QIDACHS [facility]; Protocol Last Admin: 06/27/22 12:46 Dose: Not Given Isosorbide Mononitrate (Isosorbide Mononitrate 60 Mg Tab.Er.24h) 60 mg PO DAILY [facility]; Protocol Last Admin: 06/27/22 09:01 Dose: 60 mg Metformin HCl (Metformin Hcl 1,000 Mg Tablet) 1,000 mg PO DAILY [facility] Last Admin: 06/27/22 09:00 Dose: 1,000 mg Metoprolol Succinate (Metoprolol Succinate Er 25 Mg Tab.Er.24h) 75 mg PO BID [facility]; Protocol Last Admin: 06/27/22 08:59 Dose: 75 mg Morphine Sulfate (Morphine Sulfate Er 15 Mg Tablet.Er) 15 mg PO Q8H [facility] Last Admin: 06/27/22 09:00 Dose: 15 mg Omeprazole (Omeprazole 20 Mg Capsule.Dr) 20 mg PO DAILY@0630 [facility] Pharmacy Consult (Consult Rx Perform Med Rec) 1 each MISCELLANE ONCE PRN PRN Reason: Consult order Phenytoin Sodium (Phenytoin Sodium Extended 100 Mg Capsule) 300 mg PO DAILY@0730 [facility] Last Admin: 06/27/22 09:01 Dose: 300 mg Phenytoin Sodium (Phenytoin Sodium Extended 100 Mg Capsule) 400 mg PO BEDTIME [facility] Quetiapine Fumarate (Quetiapine Fumarate 100 Mg Tablet) 100 mg PO DAILY [facility] Last Admin: 06/27/22 10:12 Dose: 100 mg Quetiapine Fumarate (Quetiapine Fumarate 200 Mg Tablet) 200 mg PO BID [facility] Last Admin: 06/27/22 10:12 Dose: 200 mg Torsemide (Torsemide 20 Mg Tablet) 40 mg PO DAILY [facility]; Protocol Last Admin: 06/27/22 09:00 Dose: 40 mg Trazodone HCl (Trazodone Hcl 100 Mg Tablet) 100 mg PO BEDTIME [facility] Vitamin D (Cholecalciferol (Vitamin D3) 25 Mcg Tablet) 50 mcg PO DAILY [facility] Last Admin: 06/27/22 09:00 Dose: 50 mcg Home Medications Medication Instructions Recorded Confirmed Last Taken Type hydroxyzine HCl 25 mg tablet 25 mg PO TID PRN Itching 03/23/20 06/26/22 04/12/22 History isosorbide mononitrate 60 mg 60 mg PO QAM 03/23/20 06/26/22 04/12/22 History tablet,extended release 24 hr metformin 1,000 mg tablet 1,000 mg PO QAM 03/23/20 06/26/22 04/12/22 History pantoprazole 40 mg tablet,delayed 40 mg PO DAILY 03/23/20 06/26/22 04/12/22 History release phenytoin sodium extended 100 mg 300 mg PO DAILY@0730 03/23/20 06/26/22 04/12/22 History capsule phenytoin sodium extended 100 mg 400 mg PO BEDTIME 03/23/20 06/26/22 04/12/22 History capsule trazodone 50 mg tablet 100 mg PO BEDTIME 03/23/20 06/26/22 04/11/22 History albuterol sulfate 90 mcg/actuation 2 puff inhalation Q4-6H PRN 04/13/22 06/26/22 Unknown History aerosol inhaler Shortness Of Breath Or Wheezing apixaban 5 mg tablet (Eliquis) 5 mg PO BID 04/13/22 06/26/22 04/12/22 History gabapentin 400 mg capsule 400 mg PO 5XD 04/13/22 06/26/22 04/12/22 History oxycodone 5 mg tablet 5 mg PO BID PRN severe pain 04/13/22 06/26/22 04/12/22 History atorvastatin 80 mg tablet 80 mg PO DAILY 06/15/22 06/26/22 Unknown History cholecalciferol (vitamin D3) 50 50 mcg PO DAILY 06/15/22 06/26/22 Unknown History mcg (2,000 unit) tablet cyanocobalamin (vitamin B-12) 1,000 mcg PO DAILY 06/15/22 06/26/22 Unknown History 1,000 mcg tablet duloxetine 30 mg capsule,delayed 30 mg PO DAILY@0900 06/15/22 06/26/22 Unknown History release duloxetine 30 mg capsule,delayed 60 mg PO BEDTIME 06/15/22 06/26/22 Unknown History release empagliflozin 10 mg tablet 10 mg PO DAILY 06/15/22 06/26/22 Unknown History (Jardiance) fluticasone propionate 50 1 spray intranasal DAILY 06/15/22 06/26/22 Unknown History mcg/actuation nasal spray,suspension insulin glargine 100 unit/mL (3 20 unit subcut BEDTIME 06/15/22 06/26/22 Unknown History mL) subcutaneous pen (Lantus Solostar U-100 Insulin) insulin lispro 100 unit/mL 1 sliding scale dose subcut 06/15/22 06/26/22 Unknown History subcutaneous solution USEASDIRECTD lorazepam 2 mg tablet 4 mg PO TID PRN anxiety 06/15/22 06/15/22 Unknown History quetiapine 100 mg tablet 100 mg PO QAM 06/15/22 06/26/22 Unknown History quetiapine 200 mg tablet 200 mg PO BID 06/15/22 06/26/22 Unknown History torsemide 20 mg tablet 40 mg PO DAILY 06/15/22 06/26/22 Unknown History guaifenesin 100 mg/5 mL oral liquid 200 mg PO Q6H PRN Cough 06/26/22 06/26/22 Unknown History Physical Exam Vital Signs: Vital Signs: Last Vital Signs Temp 98.0 F 06/27/22 14:03 Pulse 81 06/27/22 14:03 Resp 14 06/27/22 14:03 BP 108/71 06/27/22 14:03 Pulse Ox 97 06/27/22 14:03 O2 Del Method 06/27/22 14:03 O2 Flow Rate 2 06/27/22 08:47 Oxygen Flow Rate 2 06/26/22 11:35 BMI result Body Mass Index 45.4 The patient is non-toxic & in good spirits NC/AT, PERRLA, EOMI Mood, affect & judgment all appear appropriate Sclera anicteric conjunctiva pink and moist Oropharynx is clear with no aphthous ulcers, Mallampati class 4, mucous membranes moist Neck is supple with no masses, adenopathy or bruits Heart is regular, normal S1-S2 no rubs or murmurs Lungs are clear and equal anteriorly with no audible wheezing, rubs or dullness to percussion Abdomen is obese with no demonstrable hernias. There is mild epigastric and right upper quadrant discomfort. No HSM, rebound, rigidity, guarding, masses or bruits are present. Rectal exam is deferred Skin has good turgor and is free of rashes Extremities free of cyanosis clubbing edema Results Labs 06/27/22 12:50 06/27/22 12:49 Labs: Abnormal lab results 06/26/22 06/27/22 06/27/22 Range/Units 16:09 04:46 10:15 Hgb 10.3 L (14.0-18.0) g/dl Hct 36.7 L (42.0-52.0) % MCV 76.8 L (80.0-98.0) fL MCH 21.5 L (27.0-33.0) pg MCHC 28.1 L (31.0-36.0) g/dl RDW 17.9 H (11.0-16.0) % Plt Count 411 H D (160-400) X10*3/uL Neut % (Auto) 79.0 H (45-73) % Lymph % (Auto) 13.0 L (20-40) % Lymph # (Auto) 0.9 L (1.2-4.9) X10*3/uL POC Glucose 191 H (60-115) mg/dL Random Glucose (60-115) mg/dL Total Protein (6.5-8.0) g/dL Albumin (3.5-5.0) g/dL Amylase (28-100) U/L Ur Specific [place] >= 1.030 H (1.005-1.025) Urine Protein 100 (2+) H (Neg-Trace) mg/dL Urine Glucose (UA) 250 H (Negative) mg/dL 06/27/22 06/27/22 06/27/22 Range/Units 12:32 12:49 12:49 Hgb (14.0-18.0) g/dl Hct (42.0-52.0) % MCV (80.0-98.0) fL MCH (27.0-33.0) pg MCHC (31.0-36.0) g/dl RDW (11.0-16.0) % Plt Count (160-400) X10*3/uL Neut % (Auto) (45-73) % Lymph % (Auto) (20-40) % Lymph # (Auto) (1.2-4.9) X10*3/uL POC Glucose 220 H (60-115) mg/dL Random Glucose 216 H (60-115) mg/dL Total Protein 5.6 L (6.5-8.0) g/dL Albumin 3.2 L (3.5-5.0) g/dL Amylase 19 L (28-100) U/L Ur Specific [place] (1.005-1.025) Urine Protein (Neg-Trace) mg/dL Urine Glucose (UA) (Negative) mg/dL 06/27/22 Range/Units 12:50 Hgb 9.9 L (14.0-18.0) g/dl Hct 35.2 L (42.0-52.0) % MCV 76.5 L (80.0-98.0) fL MCH 21.5 L (27.0-33.0) pg MCHC 28.1 L (31.0-36.0) g/dl RDW 17.5 H (11.0-16.0) % Plt Count (160-400) X10*3/uL Neut % (Auto) 83.8 H (45-73) % Lymph % (Auto) 9.2 L (20-40) % Lymph # (Auto) 0.6 L (1.2-4.9) X10*3/uL POC Glucose (60-115) mg/dL Random Glucose (60-115) mg/dL Total Protein (6.5-8.0) g/dL Albumin (3.5-5.0) g/dL Amylase (28-100) U/L Ur Specific [place] (1.005-1.025) Urine Protein (Neg-Trace) mg/dL Urine Glucose (UA) (Negative) mg/dL Short CBC 06/26/22 06/27/22 Range/Units 16:09 12:50 WBC 6.8 6.9 (4.8-10.8) X10*3/uL Hgb 10.3 L 9.9 L (14.0-18.0) g/dl Hct 36.7 L 35.2 L (42.0-52.0) % Plt Count 411 H D 362 (160-400) X10*3/uL BMP 06/27/22 12:49 Sodium 141 Potassium 3.8 Chloride 103 Carbon Dioxide 29 BUN 9 Creatinine 0.65 Calcium 8.6 Liver Function 06/27/22 Range/Units 12:49 Total Bilirubin 0.4 (0.0-1.0) mg/dL AST 9 (5-37) U/L ALT 10 (0-40) U/L Alkaline Phosphatase 102 (39-117) U/L Albumin 3.2 L (3.5-5.0) g/dL Urine 06/27/22 Range/Units 04:46 Urine Color Dark Yellow Urine Appearance Clear Urine pH 6.5 (5.0-9.0) Ur Specific [place] >= 1.030 H (1.005-1.025) Urine Protein 100 (2+) H (Neg-Trace) mg/dL Urine Glucose (UA) 250 H (Negative) mg/dL All other labs normal. Imaging Abdomen CT scan report/results: report reviewed and image reviewed CT scan - pelvis: report reviewed and image reviewed Abdominal ultrasound report/results: report reviewed Additional studies: Hemoglobin A1c 9.0 Repeat abd U/S from today showed cholelithiasis Suspect 0.9 cm stone in the gallbladder neck. The gallbladder is physiologically distended without gross evidence of sludge, polyps, wall thickening or pericholecystic fluid. Technologist reports positive sonographic Sheikh's sign. HIDA with prompt GB visualization, cystic duct patent Repeat CT shows no acute instraabd surgical pathology Assessment and Plan (1) Diabetes mellitus, type 2: Status: Acute (2) Hypertension: Status: Acute (3) Gallstones: Status: Acute (4) COVID-19 virus infection: Status: Acute (5) Cerebrovascular accident: Qualifiers: CVA mechanism: unspecified Qualified Code(s): I63.9 - Cerebral infarction, unspecified Status: Acute (6) Hyperlipidemia associated with type 2 diabetes mellitus: Status: Acute (7) PTSD (post-traumatic stress disorder): Status: Acute Plan CT scan shows minimal gallbladder wall thickening or inflammation by my interpretation official read is pending. Patient's white blood cell count is normal meaning that this is not likely acute calculous cholecystitis. Patient may intermittently experience biliary colic, however, based on his comorbidi ties, he is a significant operative risk as evidence by his history of gallbladder drainage at [facility]. It would be helpful to obtain those records. HIDA scan is currently pending. Any opiates within 6 hours may confound the results. Since the patient is potentially a significant operative risk, cardiac clearance would be required. Ultimately, not acute surgical pathology has been identified in this high-risk patient. Will sign off & disposition per ER or meidcal team. Time Spent With Patient Time: Total time managing care of this patient today ____ minutes. Procedures Date of Service Date of Service: 06/27/22
--- NOTE | 2022-06-27 16:15 | MHC.CM.PN ---
PATIENT LIVES ALONE. 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 REFERRAL TO BE PLACED TO NA TO FOLLOW HCP ON FILE AND VERIFIED
--- NOTE | 2022-06-27 16:21 | MHC.CM.ED ---
ASSESSMENT INFORMATION NOT INCLUDED, T/W UNABLE TO ADD THAT INTERVENTION DESPITE MULTIPLE ATTEMPTS
--- NOTE | 2022-06-27 17:00 | PC.NURSE ---
Patient to IR for imaging . patient aware of plan of care .
[2022-06-27 21:22] LABS: Glucose, Whole Blood 137 mg/dL (60-115)
[2022-06-27] MEDS: Insulin Glargine,Hum.rec.anlog 100 UNIT/ML 10 ML VIAL 20 UNIT SUBCUT (21:22)
[2022-06-27] MEDS: traZODone HCL 100 MG TABLET PO (21:23)
[2022-06-27] MEDS: Phenytoin Sodium Extended 100 MG CAPSULE 400 MG PO (21:24)
[2022-06-27] MEDS: DULoxetine HCl 60 MG CAPSULE.DR PO (21:24)
[2022-06-28 00:14] VITALS: BP 118/69; PULSE 83; RESP 16; TEMP 36.9; O2SAT 97
[2022-06-28] MEDS: Morphine Sulfate ER 15 MG TABLET.ER PO ×2 (02:06→09:43)
--- NOTE | 2022-06-28 02:17 | ED_ITS ---
HPI - General Adult General Chief complaint: General Medical Stated complaint: flu like symptoms Time Seen by Provider: 06/26/22 11:36 Source: patient Mode of arrival: EMS Limitations: physical limitation Related Data Home Medications Medication Instructions Recorded Confirmed hydroxyzine HCl 25 mg tablet 25 mg PO TID PRN Itching 03/23/20 06/26/22 isosorbide mononitrate 60 mg 60 mg PO QAM 03/23/20 06/26/22 tablet,extended release 24 hr metformin 1,000 mg tablet 1,000 mg PO QAM 03/23/20 06/26/22 pantoprazole 40 mg tablet,delayed 40 mg PO DAILY 03/23/20 06/26/22 release phenytoin sodium extended 100 mg 300 mg PO DAILY@0730 03/23/20 06/26/22 capsule phenytoin sodium extended 100 mg 400 mg PO BEDTIME 03/23/20 06/26/22 capsule trazodone 50 mg tablet 100 mg PO BEDTIME 03/23/20 06/26/22 albuterol sulfate 90 mcg/actuation 2 puff inhalation Q4-6H PRN 04/13/22 06/26/22 aerosol inhaler Shortness Of Breath Or Wheezing apixaban 5 mg tablet (Eliquis) 5 mg PO BID 04/13/22 06/26/22 gabapentin 400 mg capsule 400 mg PO 5XD 04/13/22 06/26/22 oxycodone 5 mg tablet 5 mg PO BID PRN severe pain 04/13/22 06/26/22 atorvastatin 80 mg tablet 80 mg PO DAILY 06/15/22 06/26/22 cholecalciferol (vitamin D3) 50 50 mcg PO DAILY 06/15/22 06/26/22 mcg (2,000 unit) tablet cyanocobalamin (vitamin B-12) 1,000 mcg PO DAILY 06/15/22 06/26/22 1,000 mcg tablet duloxetine 30 mg capsule,delayed 30 mg PO DAILY@0900 06/15/22 06/26/22 release duloxetine 30 mg capsule,delayed 60 mg PO BEDTIME 06/15/22 06/26/22 release empagliflozin 10 mg tablet 10 mg PO DAILY 06/15/22 06/26/22 (Jardiance) fluticasone propionate 50 1 spray intranasal DAILY 06/15/22 06/26/22 mcg/actuation nasal spray,suspension insulin glargine 100 unit/mL (3 20 unit subcut BEDTIME 06/15/22 06/26/22 mL) subcutaneous pen (Lantus Solostar U-100 Insulin) insulin lispro 100 unit/mL 1 sliding scale dose subcut 06/15/22 06/26/22 subcutaneous solution USEASDIRECTD lorazepam 2 mg tablet 4 mg PO TID PRN anxiety 06/15/22 06/15/22 quetiapine 100 mg tablet 100 mg PO QAM 06/15/22 06/26/22 quetiapine 200 mg tablet 200 mg PO BID 06/15/22 06/26/22 torsemide 20 mg tablet 40 mg PO DAILY 06/15/22 06/26/22 guaifenesin 100 mg/5 mL oral liquid 200 mg PO Q6H PRN Cough 06/26/22 06/26/22 Previous Rx's Medication Instructions Recorded metoprolol succinate 25 mg 75 mg PO BID 30 days #180 tabs 04/17/22 tablet,extended release 24 hr prednisone 20 mg tablet 20 mg PO DAILY #4 tabs 06/24/22 Allergies Allergy/AdvReac Type Severity Reaction Status Date / Time aspirin Allergy Severe OCCASIONAL Verified 04/08/22 14:18 RASH / TONGUE SWELLING, Hives, throat swellig bee pollen [BEE STINGS] Allergy Severe ANAPHYLAXIS Verified 04/08/22 14:18 Penicillins Allergy Severe ANAPHYLAXIS Verified 04/08/22 14:18 povidone-iodine [Betadine] Allergy Severe Redness of Verified 04/08/22 14:18 Skin soap [Betadine] Allergy Severe Redness of Verified 04/08/22 14:18 Skin spider venom [SPIDER BITES] Allergy Severe Hives Verified 04/08/22 14:18 amoxicillin Allergy Intermediate Hives Verified 04/08/22 14:18 clindamycin Allergy Mild RASH Verified 04/08/22 14:18 latex [Latex] Allergy Mild RASH Verified 04/08/22 14:18 shrimp Allergy Hives Verified 06/21/22 11:48 bupropion [From WELLBUTRIN] AdvReac Severe SEIZURES Verified 04/08/22 14:18 adhesive tape AdvReac Mild Rash Verified 04/14/22 15:55 PMFSH Past Medical History Medical History Anxiety Arthritis Asthma Atrial fibrillation with rapid ventricular response Coronary artery disease Diabetes mellitus, type 2 Fall Hypertension Multifactorial gait disorder Obesity PTSD (post-traumatic stress disorder) TIA (transient ischemic attack) Transient ischemic attack (TIA) Social History Social History Household Members: None Housing: Apartment Do you presently have visiting nurse or other home services: Yes Alcohol intake: former Patient Tobacco Use Status: Never used Tobacco Second Hand Smoke Exposure: No Advance Directives: Yes Advance Directives on File: Yes Advance Directives Date on File: 04/14/22 service: No Current occupational status: disabled Physical Exam ED Vital Signs: Vital Signs - 24 hr 06/27/22 04:47 06/27/22 08:47 06/27/22 14:03 Temperature 97.9 F 98.0 F 98.0 F Pulse Rate 95 88 81 Respiratory Rate 18 16 14 Blood Pressure 135/77 146/93 H 108/71 Pulse Oximetry 97 97 97 Oxygen Delivery Method Room Air Nasal Cannula Room Air Oxygen Flow Rate 2 06/28/22 00:14 Temperature 98.4 F Pulse Rate 83 Respiratory Rate 16 Blood Pressure 118/69 Pulse Oximetry 97 Oxygen Delivery Method Oxygen Flow Rate BMI result Body Mass Index 45.4 Medications Administered Generic Name Dose Route Start Last Admin Trade Name Freq PRN Reason Stop Dose Admin Apixaban 5 mg 06/27/22 09:00 06/27/22 21:13 Apixaban 5 Mg Tablet PO 5 mg BID YOHAN Administration Atorvastatin Calcium 80 mg 06/27/22 09:00 06/27/22 09:00 Atorvastatin Calcium 80 Mg Tablet PO 80 mg DAILY YOHAN Administration Cyanocobalamin 1,000 mcg 06/27/22 09:00 06/27/22 09:01 Cyanocobalamin (Vitamin B-12) 1,000 Mcg Tablet PO 1,000 mcg DAILY YOHAN Administration Duloxetine HCl 30 mg 06/27/22 09:00 06/27/22 09:01 Duloxetine Hcl 30 Mg Capsule. PO 30 mg DAILY YOHAN Administration Duloxetine HCl 60 mg 06/27/22 21:00 06/27/22 21:24 Duloxetine Hcl 60 Mg Capsule. PO 60 mg BEDTIME YOHAN Administration Empagliflozin 10 mg 06/27/22 09:00 06/27/22 12:05 Empagliflozin 10 Mg Tablet PO Not Given DAILY YOHAN Fluticasone Propionate 1 spray 06/27/22 09:00 06/27/22 12:05 Fluticasone Propionate Nasal 16 Gm [place] NOSTRIL-B Not Given DAILY YOHAN Gabapentin 400 mg 06/27/22 10:00 06/27/22 21:27 Gabapentin 400 Mg Capsule PO 400 mg 5XD YOHAN Administration Insulin Glargine 20 unit 06/27/22 21:00 06/27/22 21:22 Insulin Glargine,Hum.Rec.Anlog 100 Unit/Ml 10 Ml Vial SUBCUT 20 unit BEDTIME YOHAN Administration Insulin Human Lispro 0 unit 06/27/22 08:45 06/28/22 02:05 Insulin Lispro 100 Unit/Ml 3 Ml Vial SUBCUT Not Given QIDACHS [facility] Protocol Isosorbide Mononitrate 60 mg 06/27/22 09:00 06/27/22 09:01 Isosorbide Mononitrate 60 Mg Tab.Er.24h PO 60 mg DAILY YOHAN Administration Protocol Metformin HCl 1,000 mg 06/27/22 09:00 06/27/22 09:00 Metformin Hcl 1,000 Mg Tablet PO 1,000 mg DAILY YOHAN Administration Metoprolol Succinate 75 mg 06/27/22 09:00 06/27/22 21:14 Metoprolol Succinate Er 25 Mg Tab.Er.24h PO 75 mg BID YOHAN Administration Protocol Morphine Sulfate 15 mg 06/27/22 09:00 06/28/22 02:06 Morphine Sulfate Er 15 Mg Tablet.Er PO 15 mg Q8H YOHAN Administration Phenytoin Sodium 300 mg 06/27/22 08:45 06/27/22 21:15 Phenytoin Sodium Extended 100 Mg Capsule PO 300 mg DAILY@0730 YOHAN Administration Phenytoin Sodium 400 mg 06/27/22 21:00 06/27/22 21:24 Phenytoin Sodium Extended 100 Mg Capsule PO 400 mg BEDTIME YOHAN Administration Quetiapine Fumarate 100 mg 06/27/22 09:00 06/27/22 10:12 Quetiapine Fumarate 100 Mg Tablet PO 100 mg DAILY YOHAN Administration Quetiapine Fumarate 200 mg 06/27/22 09:00 06/27/22 21:26 Quetiapine Fumarate 200 Mg Tablet PO 200 mg BID YOHAN Administration Torsemide 40 mg 06/27/22 09:00 06/27/22 09:00 Torsemide 20 Mg Tablet PO 40 mg DAILY YOHAN Administration Protocol Trazodone HCl 100 mg 06/27/22 21:00 06/27/22 21:23 Trazodone Hcl 100 Mg Tablet PO 100 mg BEDTIME YOHAN Administration Vitamin D 50 mcg 06/27/22 09:00 06/27/22 09:00 Cholecalciferol (Vitamin D3) 25 Mcg Tablet PO 50 mcg DAILY YOHAN Administration Discontinued Medications Generic Name Dose Route Start Last Admin Trade Name Leonel PRN Reason Stop Dose Admin Fentanyl 25 mcg 06/26/22 22:41 06/26/22 23:18 Fentanyl Citrate/Pf 100 Mcg/2 Ml Vial IVPUSH 06/26/22 22:42 25 mcg ONCE ONE Administration Protocol Sodium Chloride 1,000 mls @ 999 mls/hr 06/26/22 16:30 06/26/22 18:02 Ns IV 06/26/22 17:30 Infused .Q1H1M YOHAN Infusion Iohexol 100 ml 06/27/22 13:50 06/27/22 13:53 Iohexol 350 Mg/Ml 100 Ml Infus..Btl IV 06/27/22 13:51 100 ml ONCE ONE Administration Morphine Sulfate 4 mg 06/27/22 12:19 06/27/22 12:33 Morphine Sulfate 4 Mg/Ml Cartridge IVPUSH 06/27/22 12:20 4 mg ONCE ONE Administration Protocol Ondansetron HCl 4 mg 06/27/22 12:19 06/27/22 12:34 Ondansetron Hcl 4 Mg/2 Ml Vial IVPUSH 06/27/22 12:20 4 mg ONCE ONE Administration Oxycodone HCl 5 mg 06/26/22 19:19 06/26/22 19:54 Oxycodone Hcl Immed Release 5 Mg Tablet PO 5 mg Q6H PRN Administration Pain, Moderate (Pain Scale 4-6 Medical Decision Making Lab Data 06/27/22 12:50 06/27/22 12:49 Labs: Lab Results 06/26/22 06/26/22 06/26/22 Range/Units 12:51 12:51 16:09 WBC 6.8 (4.8-10.8) X10*3/uL RBC 4.78 (4.60-5.80) X10*6/uL Hgb 10.3 L (14.0-18.0) g/dl Hct 36.7 L (42.0-52.0) % MCV 76.8 L (80.0-98.0) fL MCH 21.5 L (27.0-33.0) pg MCHC 28.1 L (31.0-36.0) g/dl RDW 17.9 H (11.0-16.0) % Plt Count 411 H D (160-400) X10*3/uL MPV 10.3 (9.4-12.4) fL Immature Gran % (Auto) 0.1 (0.0-0.4) % Neut % (Auto) 79.0 H (45-73) % Lymph % (Auto) 13.0 L (20-40) % [place] % (Auto) 7.4 (2-11) % Eos % (Auto) 0.4 (0-4) % Baso % (Auto) 0.1 (0-2) % Lymph # (Auto) 0.9 L (1.2-4.9) X10*3/uL [place] # (Auto) 0.5 (0.1-1.2) X10*3/uL Eos # (Auto) 0.0 (0.0-0.4) X10*3/uL Baso # (Auto) 0.0 (0.0-0.2) X10*3/uL Abs Immat Gran (auto) 0.01 (0.00-0.03) X10*3/uL Absolute Neuts (auto) 5.4 (2.0-8.3) x10*3/uL Absolute Nucleated RBC 0.000 (0.0-0.012) X10*3/uL Nucleated RBC % (auto) 0.0 (0.0-0.2) /100WBC PT (10.0-13.1) SEC INR (0.9-1.1) Sodium 139 (135-145) mmol/L Potassium 3.9 (3.3-5.1) mmol/L Chloride 101 (96-108) mmol/L Carbon Dioxide 27 (22-29) mmol/L Anion Gap 15 (12-20) BUN 9 (9-16) mg/dL Creatinine 0.73 (0.5-1.4) mg/dL Estim Creat Clear Calc 168.7 Estimated GFR > 60 POC Glucose (60-115) mg/dL Random Glucose 263 H (60-115) mg/dL Estimat Average Glucose mg/dL Hemoglobin A1c % % Calcium 8.8 D (8.4-10.2) mg/dL Magnesium 1.6 (1.6-2.6) mg/dL Total Bilirubin 0.3 (0.0-1.0) mg/dL AST 12 (5-37) U/L ALT 13 (0-40) U/L Alkaline Phosphatase 97 (39-117) U/L Lactate Dehydrogenase (118-273) U/L Total Protein 6.0 L (6.5-8.0) g/dL Albumin 3.3 L (3.5-5.0) g/dL Amylase (28-100) U/L Lipase (8-78) U/L Urine Color Urine Appearance Urine pH (5.0-9.0) Ur Specific [place] (1.005-1.025) Urine Protein (Neg-Trace) mg/dL Urine Glucose (UA) (Negative) mg/dL Urine Ketones (Negative) mg/dL Urine Blood (Negative) Urine Nitrite (Negative) Ur Leukocyte Esterase (Negative) Urine RBC (0-2) /HPF Urine WBC (0-5) /HPF Ur Squamous Epith Cells (0-2) /HPF Urine Bacteria (None Seen) Hyaline Casts (0-2) /LPF Influenza Type A (PCR) NEGATIVE (Negative) Influenza Type B (PCR) NEGATIVE (Negative) RSV RNA Qual (PCR) NEGATIVE (Negative) SARS-CoV-2 RNA (RT-PCR) POSITIVE A (Negative) 06/27/22 06/27/22 06/27/22 Range/Units 04:46 10:15 12:32 WBC (4.8-10.8) X10*3/uL RBC (4.60-5.80) X10*6/uL Hgb (14.0-18.0) g/dl Hct (42.0-52.0) % MCV (80.0-98.0) fL MCH (27.0-33.0) pg MCHC (31.0-36.0) g/dl RDW (11.0-16.0) % Plt Count (160-400) X10*3/uL MPV (9.4-12.4) fL Immature Gran % (Auto) (0.0-0.4) % Neut % (Auto) (45-73) % Lymph % (Auto) (20-40) % [place] % (Auto) (2-11) % Eos % (Auto) (0-4) % Baso % (Auto) (0-2) % Lymph # (Auto) (1.2-4.9) X10*3/uL [place] # (Auto) (0.1-1.2) X10*3/uL Eos # (Auto) (0.0-0.4) X10*3/uL Baso # (Auto) (0.0-0.2) X10*3/uL Abs Immat Gran (auto) (0.00-0.03) X10*3/uL Absolute Neuts (auto) (2.0-8.3) x10*3/uL Absolute Nucleated RBC (0.0-0.012) X10*3/uL Nucleated RBC % (auto) (0.0-0.2) /100WBC PT (10.0-13.1) SEC INR (0.9-1.1) Sodium (135-145) mmol/L Potassium (3.3-5.1) mmol/L Chloride (96-108) mmol/L Carbon Dioxide (22-29) mmol/L Anion Gap (12-20) BUN (9-16) mg/dL Creatinine (0.5-1.4) mg/dL Estim Creat Clear Calc Estimated GFR POC Glucose 191 H 220 H (60-115) mg/dL Random Glucose (60-115) mg/dL Estimat Average Glucose mg/dL Hemoglobin A1c % % Calcium (8.4-10.2) mg/dL Magnesium (1.6-2.6) mg/dL Total Bilirubin (0.0-1.0) mg/dL AST (5-37) U/L ALT (0-40) U/L Alkaline Phosphatase (39-117) U/L Lactate Dehydrogenase (118-273) U/L Total Protein (6.5-8.0) g/dL Albumin (3.5-5.0) g/dL Amylase (28-100) U/L Lipase (8-78) U/L Urine Color Dark Yellow Urine Appearance Clear Urine pH 6.5 (5.0-9.0) Ur Specific [place] >= 1.030 H (1.005-1.025) Urine Protein 100 (2+) H (Neg-Trace) mg/dL Urine Glucose (UA) 250 H (Negative) mg/dL Urine Ketones Trace (Negative) mg/dL Urine Blood Negative (Negative) Urine Nitrite Negative (Negative) Ur Leukocyte Esterase Negative (Negative) Urine RBC 0-2 (0-2) /HPF Urine WBC 0-5 (0-5) /HPF Ur Squamous Epith Cells 3-5 (0-2) /HPF Urine Bacteria None Seen (None Seen) Hyaline Casts 0-2 (0-2) /LPF Influenza Type A (PCR) (Negative) Influenza Type B (PCR) (Negative) RSV RNA Qual (PCR) (Negative) SARS-CoV-2 RNA (RT-PCR) (Negative) 06/27/22 06/27/22 06/27/22 Range/Units 12:49 12:49 12:49 WBC (4.8-10.8) X10*3/uL RBC (4.60-5.80) X10*6/uL Hgb (14.0-18.0) g/dl Hct (42.0-52.0) % MCV (80.0-98.0) fL MCH (27.0-33.0) pg MCHC (31.0-36.0) g/dl RDW (11.0-16.0) % Plt Count (160-400) X10*3/uL MPV (9.4-12.4) fL Immature Gran % (Auto) (0.0-0.4) % Neut % (Auto) (45-73) % Lymph % (Auto) (20-40) % [place] % (Auto) (2-11) % Eos % (Auto) (0-4) % Baso % (Auto) (0-2) % Lymph # (Auto) (1.2-4.9) X10*3/uL [place] # (Auto) (0.1-1.2) X10*3/uL Eos # (Auto) (0.0-0.4) X10*3/uL Baso # (Auto) (0.0-0.2) X10*3/uL Abs Immat Gran (auto) (0.00-0.03) X10*3/uL Absolute Neuts (auto) (2.0-8.3) x10*3/uL Absolute Nucleated RBC (0.0-0.012) X10*3/uL Nucleated RBC % (auto) (0.0-0.2) /100WBC PT 13.1 (10.0-13.1) SEC INR 1.1 (0.9-1.1) Sodium 141 (135-145) mmol/L Potassium 3.8 (3.3-5.1) mmol/L Chloride 103 (96-108) mmol/L Carbon Dioxide 29 (22-29) mmol/L Anion Gap 13 (12-20) BUN 9 (9-16) mg/dL Creatinine 0.65 (0.5-1.4) mg/dL Estim Creat Clear Calc 189.5 Estimated GFR > 60 POC Glucose (60-115) mg/dL Random Glucose 216 H (60-115) mg/dL Estimat Average Glucose mg/dL Hemoglobin A1c % % Calcium 8.6 (8.4-10.2) mg/dL Magnesium 1.6 (1.6-2.6) mg/dL Total Bilirubin 0.4 (0.0-1.0) mg/dL AST 9 (5-37) U/L ALT 10 (0-40) U/L Alkaline Phosphatase 102 (39-117) U/L Lactate Dehydrogenase 119 (118-273) U/L Total Protein 5.6 L (6.5-8.0) g/dL Albumin 3.2 L (3.5-5.0) g/dL Amylase 19 L (28-100) U/L Lipase 10 (8-78) U/L Urine Color Urine Appearance Urine pH (5.0-9.0) Ur Specific [place] (1.005-1.025) Urine Protein (Neg-Trace) mg/dL Urine Glucose (UA) (Negative) mg/dL Urine Ketones (Negative) mg/dL Urine Blood (Negative) Urine Nitrite (Negative) Ur Leukocyte Esterase (Negative) Urine RBC (0-2) /HPF Urine WBC (0-5) /HPF Ur Squamous Epith Cells (0-2) /HPF Urine Bacteria (None Seen) Hyaline Casts (0-2) /LPF Influenza Type A (PCR) (Negative) Influenza Type B (PCR) (Negative) RSV RNA Qual (PCR) (Negative) SARS-CoV-2 RNA (RT-PCR) (Negative) 06/27/22 06/27/22 06/27/22 Range/Units 12:49 12:50 21:16 WBC 6.9 (4.8-10.8) X10*3/uL RBC 4.60 (4.60-5.80) X10*6/uL Hgb 9.9 L (14.0-18.0) g/dl Hct 35.2 L (42.0-52.0) % MCV 76.5 L (80.0-98.0) fL MCH 21.5 L (27.0-33.0) pg MCHC 28.1 L (31.0-36.0) g/dl RDW 17.5 H (11.0-16.0) % Plt Count 362 (160-400) X10*3/uL MPV 10.0 (9.4-12.4) fL Immature Gran % (Auto) 0.3 (0.0-0.4) % Neut % (Auto) 83.8 H (45-73) % Lymph % (Auto) 9.2 L (20-40) % [place] % (Auto) 6.6 (2-11) % Eos % (Auto) 0.1 (0-4) % Baso % (Auto) 0.0 (0-2) % Lymph # (Auto) 0.6 L (1.2-4.9) X10*3/uL [place] # (Auto) 0.5 (0.1-1.2) X10*3/uL Eos # (Auto) 0.0 (0.0-0.4) X10*3/uL Baso # (Auto) 0.0 (0.0-0.2) X10*3/uL Abs Immat Gran (auto) 0.02 (0.00-0.03) X10*3/uL Absolute Neuts (auto) 5.8 (2.0-8.3) x10*3/uL Absolute Nucleated RBC 0.000 (0.0-0.012) X10*3/uL Nucleated RBC % (auto) 0.0 (0.0-0.2) /100WBC PT (10.0-13.1) SEC INR (0.9-1.1) Sodium (135-145) mmol/L Potassium (3.3-5.1) mmol/L Chloride (96-108) mmol/L Carbon Dioxide (22-29) mmol/L Anion Gap (12-20) BUN (9-16) mg/dL Creatinine (0.5-1.4) mg/dL Estim Creat Clear Calc Estimated GFR POC Glucose 137 H (60-115) mg/dL Random Glucose (60-115) mg/dL Estimat Average Glucose 212 mg/dL Hemoglobin A1c % 9.0 % Calcium (8.4-10.2) mg/dL Magnesium (1.6-2.6) mg/dL Total Bilirubin (0.0-1.0) mg/dL AST (5-37) U/L ALT (0-40) U/L Alkaline Phosphatase (39-117) U/L Lactate Dehydrogenase (118-273) U/L Total Protein (6.5-8.0) g/dL Albumin (3.5-5.0) g/dL Amylase (28-100) U/L Lipase (8-78) U/L Urine Color Urine Appearance Urine pH (5.0-9.0) Ur Specific [place] (1.005-1.025) Urine Protein (Neg-Trace) mg/dL Urine Glucose (UA) (Negative) mg/dL Urine Ketones (Negative) mg/dL Urine Blood (Negative) Urine Nitrite (Negative) Ur Leukocyte Esterase (Negative) Urine RBC (0-2) /HPF Urine WBC (0-5) /HPF Ur Squamous Epith Cells (0-2) /HPF Urine Bacteria (None Seen) Hyaline Casts (0-2) /LPF Influenza Type A (PCR) (Negative) Influenza Type B (PCR) (Negative) RSV RNA Qual (PCR) (Negative) SARS-CoV-2 RNA (RT-PCR) (Negative) Discharge Plan Discharge Clinical Impression: Weakness, COVID-19 Patient Disposition: Still a Patient Prescriptions: No Action trazodone 50 mg tablet 100 mg PO BEDTIME phenytoin sodium extended 100 mg capsule 300 mg PO DAILY@0730 isosorbide mononitrate 60 mg tablet extended release 24 hr 60 mg PO QAM pantoprazole 40 mg tablet,delayed release (DR/EC) 40 mg PO DAILY metformin 1,000 mg tablet 1,000 mg PO QAM hydroxyzine HCl 25 mg tablet 25 mg PO TID PRN (Reason: Itching) phenytoin sodium extended 100 mg capsule 400 mg PO BEDTIME guaifenesin 100 mg/5 mL Liquid 200 mg PO Q6H PRN (Reason: Cough) gabapentin 400 mg capsule 400 mg PO 5XD Rx Instructions: hold for sedation oxycodone 5 mg tablet 5 mg PO BID PRN (Reason: severe pain) Eliquis 5 mg tablet 5 mg PO BID albuterol sulfate 90 mcg/actuation Hfa Aerosol Inhaler 2 puff INHALATION Q4-6H PRN (Reason: Shortness Of Breath Or Wheezing) metoprolol succinate 25 mg Tablet Extended Release 24 Hr 75 mg PO BID 30 Days Qty: 180 1RF Protocol: Hold for SBP/HR < HOLD for SBP < : 90 HOLD for HR < : 60 atorvastatin 80 mg tablet 80 mg PO DAILY torsemide 20 mg tablet 40 mg PO DAILY quetiapine 200 mg tablet 200 mg PO BID quetiapine 100 mg tablet 100 mg PO QAM lorazepam 2 mg tablet 4 mg PO TID PRN (Reason: anxiety) duloxetine 30 mg capsule,delayed release(DR/EC) 30 mg PO DAILY@0900 duloxetine 30 mg capsule,delayed release(DR/EC) 60 mg PO BEDTIME Jardiance 10 mg tablet 10 mg PO DAILY cyanocobalamin (vitamin B-12) 1,000 mcg Tablet 1,000 mcg PO DAILY insulin lispro 100 unit/mL Solution 1 sliding scale dose SUBCUT USEASDIRECTD Protocol: Insulin Correction Scale Less than or equal to 110 ---- Give (units): 0 111 to 150 Give (units): 0 151 to 200 Give (units): 2 201 to 250 Give (units): 4 251 to 300 Give (units): 6 301 to 350 Give (units): 8 Greater than 350 Give (units): 10 Call MD if Blood Glucose > : 350 fluticasone propionate 50 mcg/actuation [place],Suspension 1 spray INTRANASAL DAILY Rx Instructions: administer into each nostril insulin glargine [Lantus Solostar U-100 Insulin] 100 unit/mL (3 mL) Insulin Pen 20 unit SUBCUT BEDTIME cholecalciferol (vitamin D3) 50 mcg (2,000 unit) Tablet 50 mcg PO DAILY prednisone 20 mg tablet 20 mg PO DAILY Qty: 4 0RF
[2022-06-28 03:24] VITALS: RESP 18
[2022-06-28] MEDS: Morphine Sulfate 4 MG/ML CARTRIDGE IVPUSH (03:24)
[2022-06-28 06:00] VITALS: BP 107/71; PULSE 97; RESP 18; TEMP 36.3
[2022-06-28] MEDS: Omeprazole 20 MG CAPSULE.DR PO (06:15)
[2022-06-28] MEDS: Gabapentin 400 MG CAPSULE PO ×3 (06:16→13:25)
[2022-06-28 06:55] LABS: Glucose, Whole Blood 160 mg/dL (60-115)
[2022-06-28 08:15] VITALS: BP 113/73; PULSE 89; RESP 16; TEMP 36.9; O2SAT 94
--- NOTE | 2022-06-28 08:37 | MHC.CM.ED ---
Patient reviews in ER overflow. Physical therapy eval is pending. Patient is active with [facility]. Continue to monitor for d/c needs.
[2022-06-28 09:26] VITALS: PULSE 88; O2SAT 94
[2022-06-28] MEDS: QUEtiapine Fumarate 200 MG TABLET PO (09:40)
[2022-06-28] MEDS: metFORMIN HCl 1,000 MG TABLET 1000 MG PO (09:40)
[2022-06-28] MEDS: Atorvastatin Calcium 80 MG TABLET PO (09:41)
[2022-06-28] MEDS: Phenytoin Sodium Extended 100 MG CAPSULE 300 MG PO (09:41)
[2022-06-28] MEDS: Metoprolol Succinate ER 25 MG TAB.ER.24H 75 MG PO (09:41)
[2022-06-28] MEDS: Cholecalciferol (Vitamin D3) 25 MCG TABLET 50 MCG PO (09:41)
[2022-06-28] MEDS: DULoxetine HCl 30 MG CAPSULE.DR PO (09:42)
[2022-06-28] MEDS: Apixaban 5 MG TABLET PO (09:43)
[2022-06-28] MEDS: Cyanocobalamin (Vitamin B-12) 1,000 MCG TABLET 1000 MCG PO (09:43)
[2022-06-28] MEDS: QUEtiapine Fumarate 100 MG TABLET PO (09:43)
[2022-06-28] MEDS: Torsemide 20 MG TABLET 40 MG PO (09:45)
[2022-06-28] MEDS: Isosorbide Mononitrate 60 MG TAB.ER.24H PO (09:45)
[2022-06-28] MEDS: Empagliflozin 10 MG TABLET PO (09:55)
--- NOTE | 2022-06-28 10:58 | MHC.CM.ED ---
Physical therapy eval completed. Home therapy is recomended. Per Jocelynn at [facility], they will not be able to resume services when patient was d/c'd from [facility] on . Patient returned to ER on 06/26. T/W is trying to verify if they can accept patient back. Met with patient in regards to discharge planning. Patient aware PT is recommending home services but doesn't feel he is ready to discharge home. Patient states he still has back pain and doesn't know what his diagnosis is. T/W explained patient would be discharged home today and JORDAN Nguyen will see patient. Patient will arrange his own transportation home. Tarah BOSS aware. Continue to monitor for d/c needs.
[2022-06-28 11:28] LABS: Glucose, Whole Blood 169 mg/dL (60-115)
[2022-06-28] MEDS: Insulin Lispro 100 UNIT/ML 3 ML VIAL SUBCUT (13:25)
--- NOTE | 2022-06-28 14:11 | MHC.CM.ED ---
Physical therapy eval completed. Home therapy is recomended. Per Jocelynn at [facility], they were not be able to resume services when patient was d/c'd from [facility] on . Patient returned to ER on 06/26. T/W is trying to verify if they can accept patient back. [facility] is concerned about accepting patient back because he no longer has a [employer] and lives alone. But they are willing to accept him. Met with patient in regards to discharge planning. Patient aware PT is recommending home services but doesn't feel he is ready to discharge home. Patient states he still has back pain and doesn't know what his diagnosis is. T/W explained patient would be discharged home today and JORDAN Nguyen will see patient. Patient will arrange his own transportation home. Tarah BOSS aware. Continue to monitor for d/c needs.
--- NOTE | 2022-06-28 16:41 | PC.NURSE ---
Pt d/c home with services.Pt was picked up with EMS, IV removed, pain address and pt refuse to take Morphine ER po because to him the meds give no relief of pain. that's what he states to me. Pt takes all his belonging.
== END 2022-06-28 16:25 | disposition home or self-care (01) ==
PROVIDERS: Nurse Practitioner Family; Physician Assistant Medical; Surgery; Emergency Provider Emergency Medicine; PCP Family Medicine
DX: U07.1 COVID-19 (principal); R53.1 Weakness; R10.33 Periumbilical pain; G89.29 Other chronic pain; E11.9 Type 2 diabetes mellitus without complications; I10 Essential (primary) hypertension; I48.91 Unspecified atrial fibrillation; E66.9 Obesity, unspecified; Z68.42 Body mass index [BMI] 45.0-49.9, adult; Z86.73 Personal history of transient ischemic attack (TIA), and cerebral infarction without residual deficits; Z79.01 Long term (current) use of anticoagulants; Z79.02 Long term (current) use of antithrombotics/antiplatelets; Z79.899 Other long term (current) drug therapy; Z79.4 Long term (current) use of insulin; Z79.891 Long term (current) use of opiate analgesic
CPT/HCPCS: 0241U; 36415; 71045; 74177; 76705; 78227; 80053; 81001; 82150; 82947; 83036; 83615; 83690; 83735; 85025; 85610; 93005; 96361; 96374; 96375; 96376; 97162; 99285; A9537; J2270; J2405; J2805; J3010; Q9967

== ENCOUNTER 2022-07-08 02:21 | Inpatient (IN) | payer OTHER, SELFPAY ==
[2022-07-08] VITALS (11 sets, daily range): BP systolic 105–134; BP diastolic 63–82; PULSE 97–121; RESP 16–20; TEMP 36.6–36.8; O2SAT 95–100; BMI 47.5
--- NOTE | ~2022-07-08 | XR_ITS ---
EXAMINATION: XR CHEST CLINICAL INFORMATION: Chest pain COMPARISON: 06/26/2022 TECHNIQUE: Frontal view of the chest was obtained. FINDINGS: No significant abnormality is noted involving the heart, lungs, mediastinum, bony thorax or soft tissues. XR/XR chest 1V IMPRESSION: Unremarkable examination.
--- NOTE | ~2022-07-08 | CT_ITS ---
EXAMINATION: CT ABDOMEN AND PELVIS WITHOUT CONTRAST CLINICAL INFORMATION: Left lower quadrant pain and tenderness. COMPARISON: Most recent CT abdomen/pelvis dated 06/27/2021. TECHNIQUE: Multidetector volumetric imaging was performed from the superior aspect of the liver through the pubic symphysis. Sagittal and coronal reformatted images were obtained on the technologist's workstation. This CT examination was performed using dose optimization techniques as appropriate, variously including the following: *Automated exposure control *Adjustment of mA and/or kV according to patient size (this includes techniques or standardized protocols for targeted exams where dose is matched to indication/reason for exam; i.e. extremities or head) *Use of iterative reconstruction technique DLP: 1654 mGy-cm FINDINGS: LUNG BASES: Small right and trace left-sided pleural effusions with adjacent atelectasis versus infiltrates, slightly increased when compared to the prior examination. LIVER, GALLBLADDER, AND BILIARY TREE: The liver is normal in slightly increased in size, unchanged. Normal shape and attenuation. No focal hepatic lesion or biliary ductal dilatation is present. Redemonstration of a gallbladder stone, unchanged when compared to the prior examination. No wall thickening or associated inflammatory change to suggest acute cholecystitis. No extrahepatic biliary ductal dilatation. PANCREAS: Atrophic. No inflammatory change or pancreatic ductal dilatation. SPLEEN: Splenomegaly is unchanged. No new parenchymal lesion. ADRENAL GLANDS: Unremarkable. KIDNEYS AND URETERS: The kidneys are normal in size, shape, and attenuation. No hydronephrosis, hydroureter, or calculi seen. BLADDER: Unremarkable. GASTROINTESTINAL TRACT: Dkhk-vw-ybyrxghb stool burden, increased when compared to the prior examination. No small- or large-bowel obstruction. No bowel wall thickening or inflammatory change. Appendix not identified; however, no right lower quadrant change to suggest acute appendicitis. PERITONEAL CAVITY: No intra-abdominal free air or free fluid. No intra-abdominal mass or organized fluid collection/abscess formation. ABDOMINAL WALL: No significant hernia is appreciated. LYMPH NODES: No significant lymphadenopathy. VASCULAR: Unremarkable. PELVIC VISCERA: Small prostate calcifications. OSSEOUS STRUCTURES: No acute osseous abnormality. Probable compression deformity of T11 is unchanged. No new lytic or blastic osseous lesion. CT/CT abdomen pelvis wo IV con IMPRESSION: 1. Xely-ua-bijxvfrc stool burden, increased when compared to the prior examination. No small- or large-bowel obstruction. No bowel wall thickening or inflammatory change. 2. No new intra-abdominal mass, lymphadenopathy, or ascites. 3. Small right and trace left-sided pleural effusions with adjacent atelectasis versus infiltrates, slightly increased when compared to the prior examination. 4. Additional chronic findings are unchanged. Fleischner guidelines were followed.
--- NOTE | ~2022-07-08 | CT_ITS ---
EXAMINATION: CT LUMBAR SPINE WITHOUT CONTRAST CLINICAL INFORMATION: Severe low back pain after fall. COMPARISON: CT abdomen pelvis 06/27/2021 TECHNIQUE: Unenhanced CT of the lumbar spine with multiple coronal and sagittal reformatted images This CT examination was performed using dose optimization techniques as appropriate, variously including the following: *Automated exposure control *Adjustment of mA and/or kV according to patient size (this includes techniques or standardized protocols for targeted exams where dose is matched to indication/reason for exam; i.e. extremities or head) *Use of iterative reconstruction technique DLP; 1089 mGy-cm FINDINGS: Within the visualized abdomen pelvis, no free intraperitoneal fluid or gas collections noted. Mild scattered aortic calcific atherosclerosis is visualized. No gross paraspinous soft tissue inflammatory changes or fluid collections are identified. No urolithiasis noted. Partial visualization of a 1 cm rounded hyperdensity within the lumen of the gallbladder consistent with cholelithiasis. The cavalry scout view demonstrates no gross vertebral body compression deformities within the additionally visualized thoracic spine outside of the axial imaged [id number]. 5 lumbar type vertebral bodies are present and are normal in height and alignment. Visualized ribs appear intact. The visualized pelvis demonstrates no evidence of acute fractures or acute subluxations. Bilateral sacroiliac joint vacuum phenomenon and mild anterior osteophytosis is present. No vertebral body fracture or compression deformities identified. Mild multilevel endplate Schmorl's node deformities are visualized. T12-L1: No gross central or foraminal stenoses identified. L1-L2: No gross central or foraminal stenoses identified. L2-L3: No gross central or foraminal stenoses identified. L3-L4: No gross central or foraminal stenoses identified. L4-L5: Moderate-marked central stenosis. Partial visualization is made of a moderate posterior broad-based disc-osteophyte complex grossly unchanged compared with 06/27/2022 along with anterior projecting right-sided facet hypertrophy and ligamentum flavum hypertrophy also contributing to central stenosis and at least moderate right foraminal stenosis. Vacuum phenomenon is present within the intervertebral disc which maintains grossly normal height. Mild bilateral facet hypertrophy is present elsewhere. L5-S1: Partially visualized mild central disc protrusion. Mild intervertebral disc vacuum phenomena. Mild bilateral facet hypertrophy. CT/CT lumbar spine wo IV con IMPRESSION: 1. No acute abnormalities identified within the lumbar spine. 2. Chronic spondylosis of the lumbar spine most pronounced at L4-L5 unchanged compared with CT the abdomen and pelvis 06/27/2021. Findings include a moderate posterior broad-based disc-osteophyte complex contributing to moderate-marked central stenosis and at least moderate right foraminal stenosis. 3. Cholelithiasis.
--- NOTE | 2022-07-08 03:14 | PC.NURSE ---
pt incontient of stool while in EMS care. This RN and TAMRA Arriaza cleaned pt and provided pt with new gown and warm blanket. Pt remains in c-collar and remains on 4L NC at baseline. Report given to GERA Jarrell
[2022-07-08 05:44] LABS: Hematocrit 38.7 % (42.0-52.0); Hemoglobin 11.1 g/dl (14.0-18.0); Mean Corpuscular HGB Conc 28.7 g/dl (31.0-36.0); Mean Corpuscular Hemoglobin 21.9 pg (27.0-33.0); Mean Corpuscular Volume 76.5 fL (80.0-98.0); Mean Platelet Volume 10.3 fL (9.4-12.4); Platelet Count 273 X10*3/uL (160-400); Red Blood Count 5.06 X10*6/uL (4.60-5.80); Red Cell Distribution Width 18.4 % (11.0-16.0)
[2022-07-08 06:03] LABS: Alanine Aminotransferase 12 U/L (0-40); Albumin Level 3.7 g/dL (3.5-5.0); Alkaline Phosphatase 126 U/L (39-117); Anion Gap 18 (12-20); Aspartate Amino Transferase 14 U/L (5-37); Bilirubin Total 0.5 mg/dL (0.0-1.0); Blood Urea Nitrogen 7 mg/dL (9-16); Calcium 8.7 mg/dL (8.4-10.2); Carbon Dioxide 32 mmol/L (22-29); Chloride 94 mmol/L (96-108); Creatinine Clr Calc Pharmacy 143.5; Estimated Glomerular Filt Rate > 60; Glucose Random 193 mg/dL (60-115); Potassium 3.6 mmol/L (3.3-5.1); Sodium 140 mmol/L (135-145); Total Protein 6.7 g/dL (6.5-8.0)
[2022-07-08] MEDS: Acetaminophen 325 MG TABLET 975 MG PO (07:45)
[2022-07-08] MEDS: Cyclobenzaprine HCl 10 MG TABLET PO (07:45)
--- NOTE | 2022-07-08 07:56 | PC.NURSE ---
assumed care of pt 0700. reports 10 pain, meds given as documented, ct scan done. vss.
--- NOTE | 2022-07-08 08:34 | ED_ITS ---
HPI - Fall General Chief Complaint: Fall <Anthony Garza MD - Last Filed: 07/12/22 11:08> Stated Complaint: Fall <Anthony Garza MD - Last Filed: 07/12/22 11:08> Time Seen by Provider: 07/08/22 06:58 <Anthony Garza MD - Last Filed: 07/12/22 11:08> Source: patient <Anthony Garza MD - Last Filed: 07/12/22 11:08> Limitations: no limitations <Anthony Gazra MD - Last Filed: 07/12/22 11:08> History of Present Illness HPI Narrative: 62-year-old male generally immobile on a wheelchair presents after accidental mechanical fall. He is trying to get out of his wheelchair to the toilet in his legs got caught he fell and hit the bathtub. He did not hit his head. Did not lose consciousness. There was no prodrome such as lightheadedn ess, chest pain, palpitations, lightheadedness. He denied any additional symptoms such as chest pain or shortness of breath. He he does note that his mobility has increased over time. He does complain of low back pain. The pain is severe. Is worse with movement. The pain does not radiate. Not associated with numbness or tingling. Denies any loss of bowel or bladder control. Denies any saddle paresthesias. There has been no prior treatment. <Anthony Garza MD - Last Filed: 07/12/22 11:08> Related Data Home Medications: Home Medications Medication Instructions Recorded Confirmed apixaban 5 mg tablet (Eliquis) 1 tab PO BID 07/08/22 07/08/22 empagliflozin 10 mg tablet 1 tab PO DAILY 07/08/22 07/08/22 (Jardiance) hydroxyzine HCl 25 mg tablet 1 tab PO TID PRN Anxiety 07/08/22 07/08/22 isosorbide mononitrate 60 mg 1 tab PO DAILY 07/08/22 07/08/22 tablet,extended release 24 hr lorazepam 2 mg tablet 1 tab PO TID PRN Anxiety 07/08/22 07/08/22 metformin 1,000 mg tablet 1 tab PO DAILY 07/08/22 07/08/22 oxycodone 5 mg tablet 1 tab PO BID PRN Pain 07/08/22 07/08/22 pantoprazole 40 mg tablet,delayed 1 tab PO DAILY@0630 07/08/22 07/09/22 release phenytoin sodium extended 100 mg 300 mg PO DAILY 07/08/22 07/09/22 capsule trazodone 50 mg tablet 2 tab PO BEDTIME 07/08/22 07/08/22 acetaminophen 500 mg tablet 1,000 mg PO BID PRN Pain 07/09/22 07/09/22 albuterol sulfate 90 mcg/actuation 2 puff inhalation Q4-6H PRN 07/09/22 07/09/22 aerosol inhaler (ProAir HFA) Shortness Of Breath atorvastatin 80 mg tablet 1 tab PO DAILY 07/09/22 07/09/22 cholecalciferol (vitamin D3) 25 25 mcg PO DAILY 07/09/22 07/09/22 mcg (1,000 unit) capsule (Vitamin D3) cyanocobalamin (vitamin B-12) 1,000 mcg PO DAILY 07/09/22 07/09/22 1,000 mcg tablet digoxin 125 mcg (0.125 mg) tablet 1 tab PO Q2D 07/09/22 07/09/22 duloxetine 30 mg capsule,delayed 30 mg PO DAILY 07/09/22 07/09/22 release duloxetine 30 mg capsule,delayed 60 mg PO BEDTIME 07/09/22 07/09/22 release fluticasone propionate 50 1 spray intranasal BID 07/09/22 07/09/22 mcg/actuation nasal spray,suspension gabapentin 400 mg capsule 1 cap PO 5XD 07/09/22 07/09/22 guaifenesin 100 mg/5 mL oral liquid 200 mg PO Q6H PRN Cough 07/09/22 07/09/22 insulin glargine 100 unit/mL (3 20 unit subcut BEDTIME 07/09/22 07/09/22 mL) subcutaneous pen (Lantus Solostar U-100 Insulin) insulin lispro 100 unit/mL 2 - 10 unit subcut TIDAC 07/09/22 07/09/22 subcutaneous pen metoprolol succinate 25 mg 3 tab PO BID 07/09/22 07/09/22 tablet,extended release 24 hr phenytoin sodium extended 100 mg 400 mg PO BEDTIME 07/09/22 07/09/22 capsule quetiapine 100 mg tablet 1 tab PO BEDTIME PRN Insomnia 07/09/22 07/09/22 quetiapine 200 mg tablet 1 tab PO BID 07/09/22 07/09/22 torsemide 20 mg tablet 2 tab PO DAILY 07/09/22 07/09/22 <Anthony Garza MD - Last Filed: 07/12/22 11:08> Allergies/Adverse Reactions: Allergies Allergy/AdvReac Type Severity Reaction Status Date / Time aspirin Allergy Severe OCCASIONAL Verified 04/08/22 14:18 RASH / TONGUE SWELLING, Hives, throat swellig bee pollen [BEE STINGS] Allergy Severe ANAPHYLAXIS Verified 04/08/22 14:18 Penicillins Allergy Severe ANAPHYLAXIS Verified 04/08/22 14:18 povidone-iodine [Betadine] Allergy Severe Redness of Verified 04/08/22 14:18 Skin soap [Betadine] Allergy Severe Redness of Verified 04/08/22 14:18 Skin spider venom [SPIDER BITES] Allergy Severe Hives Verified 04/08/22 14:18 amoxicillin Allergy Intermediate Hives Verified 04/08/22 14:18 clindamycin Allergy Mild RASH Verified 04/08/22 14:18 latex [Latex] Allergy Mild RASH Verified 04/08/22 14:18 shrimp Allergy Hives Verified 06/21/22 11:48 bupropion [From WELLBUTRIN] AdvReac Severe SEIZURES Verified 04/08/22 14:18 adhesive tape AdvReac Mild Rash Verified 04/14/22 15:55 <Anthony Garza MD - Last Filed: 07/12/22 11:08> Review of Systems Constitutional: Constitutional: Reports no additional constitutional complaints <Anthony Garza MD - Last Filed: 07/12/22 11:08> Eyes: Eyes: Reports no additional eye complaints <Anthony Garza MD - Last Filed: 07/12/22 11:08> ENT: Reports system reviewed and no additional complaints, except as documented <Anthony Garza MD - Last Filed: 07/12/22 11:08> Cardiovascular: Cardiovascular: Reports no additional cardiovascular complaints <Anthony Garza MD - Last Filed: 07/12/22 11:08> Respiratory: Respiratory: Reports no additional respiratory complaints <Anthony Garza MD - Last Filed: 07/12/22 11:08> Gastrointestinal: Gastrointestinal: Reports no additional gastrointestinal complaints <Anthony Garza MD - Last Filed: 07/12/22 11:08> Genitourinary: Genitourinary: Reports no additional male genitourinary complaints <Anthony Garza MD - Last Filed: 07/12/22 11:08> Musculoskeletal: Musculoskeletal: Reports no additional musculoskeletal complaints and Reports back pain <Anthony Garza MD - Last Filed: 07/12/22 11:08> Integumentary/Breasts: Skin/Breast: Reports system reviewed and no additional complaints, except as docu <Anthony Garza MD - Last Filed: 07/12/22 11:08> Neurologic: Reports system reviewed and no additional complaints, except as documented <Anthony Garza MD - Last Filed: 07/12/22 11:08> Psychiatric: Psychiatric: Reports no additional psychiatric complaints <Anthony Garza MD - Last Filed: 07/12/22 11:08> Endocrine: Endocrine: Reports no additional endocrine complaints <Anthony Garza MD - Last Filed: 07/12/22 11:08> Hematologic/Lymphatic: Hematologic/Lymphatic: Reports no additional hematologic/lymphatic complaints <Anthony Garza MD - Last Filed: 07/12/22 11:08> Allergic/Immunologic: Allergic/Immunologic: Reports no additional aller gic/immunologic complaints <Anthony Garza MD - Last Filed: 07/12/22 11:08> [facility] Past Medical History Medical History: Medical History Anxiety Arthritis Asthma Atrial fibrillation with rapid ventricular response Coronary artery disease Diabetes mellitus, type 2 Fall Hypertension Multifactorial gait disorder Obesity PTSD (post-traumatic stress disorder) TIA (transient ischemic attack) Transient ischemic attack (TIA) Weakness <Anthony Garza MD - Last Filed: 07/12/22 11:08> Social History Social History: Social History Household Members: None Housing: Apartment Do you presently have visiting nurse or other home services: No Alcohol intake: former Patient Tobacco Use Status: Never used Tobacco Smoked in Last 30 Days: No Second Hand Smoke Exposure: No Use of substances other than those prescribed or required for medical reasons: No Have you been hit, kicked, punched, or otherwise hurt by someone within the past year? If so, by whom?: No Do you feel safe in your current relationship?: No Current Relationship Is there a partner from a previous relationship who is making you feel unsafe now?: No Are you made to feel afraid or neglected: No Advance Directives: Yes Advance Directives on File: Yes Advance Directives Date on File: 04/14/22 Do you have a plan to hurt others: No Plan Recently lost weight without trying: No Eating poorly because of decreased appetite: No Nutrition Risks: No Nutritional Risk Poor oral hygiene: No service: No Current occupational status: disabled <Anthony Garza MD - Last Filed: 07/12/22 11:08> Physical Exam Vital Signs: Vital Signs: Last Vital Signs Temp 98 F 07/12/22 06:47 Pulse 102 H 07/12/22 06:47 Resp 18 07/12/22 06:47 BP 135/65 07/12/22 06:47 Pulse Ox 95 07/12/22 06:47 O2 Del Method 07/12/22 06:47 O2 Flow Rate 4 07/12/22 06:47 Oxygen Flow Rate 4 07/08/22 02:29 BMI result Body Mass Index 47.5 <Anthony Garza MD - Last Filed: 07/12/22 11:08> Vital Signs: Last Vital Signs Temp 98 F 07/12/22 06:47 Pulse 102 H 07/12/22 06:47 Resp 18 07/12/22 06:47 BP 135/65 07/12/22 06:47 Pulse Ox 95 07/12/22 06:47 O2 Del Method 07/12/22 06:47 O2 Flow Rate 4 07/12/22 06:47 Oxygen Flow Rate 4 07/08/22 02:29 BMI result Body Mass Index 47.5 <Marc Noel MD - Last Filed: 07/11/22 22:43> Const: General: cooperative, comfortable and no acute distress <Anthony Garza MD - Last Filed: 07/12/22 11:08> Nutritional Appearance: obese <Anthony Garza MD - Last Filed: 07/12/22 11:08> HEENT: Head: Yes normal to inspection <Anthony Garza MD - Last Filed: 07/12/22 11:08> Eyes: General: appearance normal, both eyes and all related structures <Anthony Garza MD - Last Filed: 07/12/22 11:08> Neck: Neck: Yes normal visual inspection, Yes full ROM, Yes no lymphadenopathy, Yes trachea midline, Yes supple, Yes lymphadenopathy and No midline deformity <Anthony Garza MD - Last Filed: 07/12/22 11:08> Resp: Effort & Inspection: normal respiratory effort <Anthony Garza MD - Last Filed: 07/12/22 11:08> Auscultation: clear to auscultation bilaterally <Anthony Garza MD - Last Filed: 07/12/22 11:08> Cardio: Rate: regular rate <Anthony Garza MD - Last Filed: 07/12/22 11:08> Rhythm: regular rhythm <Anthony Garza MD - Last Filed: 07/12/22 11:08> : General: Yes no CVA tenderness <Anthony Garza MD - Last Filed: 07/12/22 11:08> Back/Spine/Pelvis: Back: no CVA tenderness <Anthony Garza MD - Last Filed: 07/12/22 11:08> Cervical Spine: collar present, No cervical muscular tenderness, No pain with cervical ROM, No Cervical spine tenderness, No step off deformity and No cervical ROM abnormal <Anthony Garza MD - Last Filed: 07/12/22 11:08> Thoracic/Lumbar Spine: lumbar spinal tenderness <Anthony Garza MD - Last Filed: 07/12/22 11:08> Pelvis: no pain with anterior-posterior compression <Anthony Garza MD - Last Filed: 07/12/22 11:08> Skin: General skin exam: no rashes or lesions noted <Anthony Garza MD - Last Filed: 07/12/22 11:08> Neuro: General: no focal motor deficits and CN's II-XI intact bilaterally <Anthony Garza MD - Last Filed: 07/12/22 11:08> Extrem: General: Yes normal to inspection <Anthony Garza MD - Last Filed: 07/12/22 11:08> Psych: Mental Status: mental status grossly normal <Anthony Garza MD - Last Filed: 07/12/22 11:08> Course Course Course Narrative: 62-year-old male generally immobile presents after mechanical fall. He did not hit his head or lose consciousness. Denies any neurologic deficits. Predominately describes severe lower back pain. The pain does not radiate. Not associated with numbness or tingling. There is no saddle paresthesia loss of bowel or bladder control. Will obtain imaging studies, laboratory analysis is needed. Will provide patient with analgesics and re-evaluate. <Anthony Garza MD - Last Filed: 07/12/22 11:08> Reevaluation(s) Reevaluation #1: Patient still reports a significant amount of pain. Will reach out to case management to see what his extended care facility capabilities are in order to determine appropriate disposition. <Anthony Garza MD - Last Filed: 07/12/22 11:08> Reevaluation #2: Patient will be placed in position observation. His management physical therapy evaluated the patient. Patient will require short-term rehabilitation. These are likely to be no beds available today likely remain in the hospital overnight. <Anthony Garza MD - Last Filed: 07/12/22 11:08> Time: 15:27 <Anthony Garza MD - Last Filed: 07/12/22 11:08> Reevaluation #3: Patient for rehab placement RN from [facility] called ER as patient's blood pressure was low 68/53 repeat blood pressure was 88/67 will bring the patient in the main ER for further evaluation according to the UA culture patient has Staph aureus in the urine and patient is on Macrobid . patient feels comfortable otherwise will do blood culture lactic acid and a repeat labs <Marc Noel MD - Last Filed: 07/11/22 22:43> Time: 20:26 <Marc Noel MD - Last Filed: 07/11/22 22:43> Additional Reevaluation(s): 2200 patient blood pressure rechecked was 113/51 lab workup normal WBC count lactic acid 2.2. Patient was given IV vancomycin and Rocephin 1 L of fluid was given will admit patient for further evaluation <Marc Noel MD - Last Filed: 07/11/22 22:43> Medications Administered Generic Name Dose Route Start Last Admin Trade Name Freq PRN Reason Stop Dose Admin Acetaminophen 650 mg 07/10/22 21:00 07/12/22 07:34 Acetaminophen 325 Mg Tablet PO 650 mg BID YOHAN Administration Apixaban 5 mg 07/09/22 21:00 07/12/22 07:35 Apixaban 5 Mg Tablet PO 5 mg BID YOHAN Administration Atorvastatin Calcium 80 mg 07/10/22 09:00 07/12/22 07:35 Atorvastatin Calcium 80 Mg Tablet PO 80 mg DAILY YOHAN Administration Cyanocobalamin 1,000 mcg 07/10/22 09:00 07/12/22 07:35 Cyanocobalamin (Vitamin B-12) 1,000 Mcg Tablet PO 1,000 mcg DAILY YOHAN Administration Digoxin 0.125 mg 07/10/22 09:00 07/12/22 07:34 Digoxin 0.125 Mg Tablet PO 0.125 mg Q48H YOHAN Administration Duloxetine HCl 30 mg 07/10/22 09:00 07/12/22 07:35 Duloxetine Hcl 30 Mg Capsule. PO 30 mg DAILY YOHAN Administration Duloxetine HCl 60 mg 07/09/22 21:00 07/11/22 21:15 Duloxetine Hcl 60 Mg Capsule. PO 60 mg BEDTIME YOHAN Administration Fluticasone Propionate 1 spray 07/09/22 21:00 07/12/22 07:44 Fluticasone Propionate Nasal 16 Gm Crozier NOSTRIL-B 1 spray BID YOHAN Administration Gabapentin 400 mg 07/09/22 14:00 07/12/22 06:23 Gabapentin 400 Mg Capsule PO 400 mg 5XD YOHAN Administration Insulin Glargine 20 unit 07/09/22 21:00 07/11/22 21:14 Insulin Glargine,Hum.Rec.Anlog 100 Unit/Ml 10 Ml Vial SUBCUT 20 unit BEDTIME YOHAN Administration Insulin Human Lispro 0 unit 07/12/22 07:30 07/12/22 07:35 Insulin Lispro 100 Unit/Ml 3 Ml Vial SUBCUT 2 unit QIDACHS [facility] Administration Protocol Lorazepam 2 mg 07/09/22 13:42 07/12/22 07:34 Lorazepam 1 Mg Tablet PO 2 mg TID PRN Administration Anxiety Nitrofurantoin Macrocrystals 100 mg 07/10/22 13:30 07/12/22 07:35 Nitrofurantoin Monohyd/M-Cryst 100 Mg Capsule PO 07/17/22 13:29 100 mg BID YOHAN Administration Omeprazole 20 mg 07/10/22 06:30 07/12/22 06:23 Omeprazole 20 Mg Capsule. PO 20 mg DAILY@0630 YOHAN Administration Oxycodone HCl 5 mg 07/08/22 19:38 07/12/22 04:13 Oxycodone Hcl Immed Release 5 Mg Tablet PO 5 mg Q6H PRN Administration Pain, Moderate (Pain Scale 4-6 Phenytoin Sodium 300 mg 07/09/22 13:45 07/12/22 07:34 Phenytoin Sodium Extended 100 Mg Capsule PO 300 mg DAILY YOHAN Administration Phenytoin Sodium 400 mg 07/09/22 21:00 07/11/22 21:14 Phenytoin Sodium Extended 100 Mg Capsule PO 400 mg BEDTIME YOHAN Administration Quetiapine Fumarate 200 mg 07/09/22 21:00 07/12/22 07:34 Quetiapine Fumarate 200 Mg Tablet PO 200 mg BID YOHAN Administration Sodium Chloride 3 ml 07/12/22 00:00 07/12/22 07:36 0.9 % Sodium Chloride Flush 3 Ml Syringe IVFLUSH 3 ml QSHIFT YOHAN Administration Trazodone HCl 100 mg 07/09/22 21:00 07/11/22 21:15 Trazodone Hcl 100 Mg Tablet PO 100 mg BEDTIME YOHAN Administration Vitamin D 25 mcg 07/10/22 09:00 07/12/22 07:34 Cholecalciferol (Vitamin D3) 25 Mcg Tablet PO 25 mcg DAILY YOHAN Administration Discontinued Medications Generic Name Dose Route Start Last Admin Trade Name Leonel PRN Reason Stop Dose Admin Acetaminophen 975 mg 07/08/22 07:03 07/08/22 07:45 Acetaminophen 325 Mg Tablet PO 07/08/22 07:04 975 mg ONCE ONE Administration Acetaminophen 975 mg 07/09/22 01:45 07/09/22 01:53 Acetaminophen 325 Mg Tablet PO 07/09/22 01:46 975 mg ONCE ONE Administration Cyclobenzaprine HCl 10 mg 07/08/22 07:03 07/08/22 07:45 Cyclobenzaprine Hcl 10 Mg Tablet PO 07/08/22 07:04 10 mg ONCE ONE Administration Cyclobenzaprine HCl 10 mg 07/09/22 01:45 07/09/22 01:53 Cyclobenzaprine Hcl 10 Mg Tablet PO 07/09/22 01:46 10 mg ONCE ONE Administration Empagliflozin 10 mg 07/10/22 09:00 07/11/22 09:47 Empagliflozin 10 Mg Tablet PO 10 mg DAILY YOHAN Administration Vancomycin HCl 2,000 mg in 520 mls @ 260 mls/hr 07/11/22 21:21 07/12/22 00:48 Vancomycin/Ns IV 07/11/22 23:20 Infused ONCE ONE Infusion Ceftriaxone Sodium 1 gm/ 50 mls @ 100 mls/hr 07/11/22 21:23 07/11/22 22:14 Sodium Chloride IV 07/11/22 21:52 Infused ONCE ONE Infusion Sodium Chloride 1,000 mls @ 999 mls/hr 07/11/22 22:08 07/12/22 00:09 Ns IV 07/11/22 23:08 Infused .Q1H1M ONE Infusion Sodium Chloride 1,000 mls @ 999 mls/hr 07/11/22 23:48 07/12/22 04:01 Ns IV 07/12/22 00:48 Infused .Q1H1M ONE Infusion Insulin Human Lispro 0 unit 07/09/22 17:45 07/11/22 18:11 Insulin Lispro 100 Unit/Ml 3 Ml Vial SUBCUT 2 unit TIDAC YOHAN Administration Protocol Isosorbide Mononitrate 60 mg 07/09/22 13:45 07/11/22 09:46 Isosorbide Mononitrate 60 Mg Tab.Er.24h PO 60 mg DAILY YOHAN Administration Protocol Metformin HCl 1,000 mg 07/09/22 13:45 07/11/22 09:44 Metformin Hcl 1,000 Mg Tablet PO 1,000 mg DAILY YOHAN Administration Metoprolol Succinate 75 mg 07/09/22 21:00 07/11/22 21:15 Metoprolol Succinate Er 25 Mg Tab.Er.24h PO 75 mg BID YOHAN Administration Protocol Oxycodone HCl 5 mg 07/08/22 09:26 07/08/22 09:31 Oxycodone Hcl Immed Release 5 Mg Tablet PO 07/08/22 09:27 5 mg ONCE ONE Administration Torsemide 40 mg 07/09/22 13:45 07/11/22 09:45 Torsemide 20 Mg Tablet PO 40 mg DAILY YOHAN Administration Protocol <Anthony Garza MD - Last Filed: 07/12/22 11:08> Medications Administered Generic Name Dose Route Start Last Admin Trade Name Freq PRN Reason Stop Dose Admin Acetaminophen 650 mg 07/10/22 21:00 07/12/22 07:34 Acetaminophen 325 Mg Tablet PO 650 mg BID YOHAN Administration Apixaban 5 mg 07/09/22 21:00 07/12/22 07:35 Apixaban 5 Mg Tablet PO 5 mg BID YOHAN Administration Atorvastatin Calcium 80 mg 07/10/22 09:00 07/12/22 07:35 Atorvastatin Calcium 80 Mg Tablet PO 80 mg DAILY YOHAN Administration Cyanocobalamin 1,000 mcg 07/10/22 09:00 07/12/22 07:35 Cyanocobalamin (Vitamin B-12) 1,000 Mcg Tablet PO 1,000 mcg DAILY YOHAN Administration Digoxin 0.125 mg 07/10/22 09:00 07/12/22 07:34 Digoxin 0.125 Mg Tablet PO 0.125 mg Q48H YOHAN Administration Duloxetine HCl 30 mg 07/10/22 09:00 07/12/22 07:35 Duloxetine Hcl 30 Mg Capsule. PO 30 mg DAILY YOHAN Administration Duloxetine HCl 60 mg 07/09/22 21:00 07/11/22 21:15 Duloxetine Hcl 60 Mg Capsule. PO 60 mg BEDTIME YOHAN Administration Fluticasone Propionate 1 spray 07/09/22 21:00 07/12/22 07:44 Fluticasone Propionate Nasal 16 Gm Crozier NOSTRIL-B 1 spray BID YOHAN Administration Gabapentin 400 mg 07/09/22 14:00 07/12/22 06:23 Gabapentin 400 Mg Capsule PO 400 mg 5XD YOHAN Administration Insulin Glargine 20 unit 07/09/22 21:00 07/11/22 21:14 Insulin Glargine,Hum.Rec.Anlog 100 Unit/Ml 10 Ml Vial SUBCUT 20 unit BEDTIME YOHAN Administration Insulin Human Lispro 0 unit 07/12/22 07:30 07/12/22 07:35 Insulin Lispro 100 Unit/Ml 3 Ml Vial SUBCUT 2 unit QIDACHS [facility] Administration Protocol Lorazepam 2 mg 07/09/22 13:42 07/12/22 07:34 Lorazepam 1 Mg Tablet PO 2 mg TID PRN Administration Anxiety Nitrofurantoin Macrocrystals 100 mg 07/10/22 13:30 07/12/22 07:35 Nitrofurantoin Monohyd/M-Cryst 100 Mg Capsule PO 07/17/22 13:29 100 mg BID YOHAN Administration Omeprazole 20 mg 07/10/22 06:30 07/12/22 06:23 Omeprazole 20 Mg Capsule. PO 20 mg DAILY@0630 YOHAN Administration Oxycodone HCl 5 mg 07/08/22 19:38 07/12/22 04:13 Oxycodone Hcl Immed Release 5 Mg Tablet PO 5 mg Q6H PRN Administration Pain, Moderate (Pain Scale 4-6 Phenytoin Sodium 300 mg 07/09/22 13:45 07/12/22 07:34 Phenytoin Sodium Extended 100 Mg Capsule PO 300 mg DAILY YOHAN Administration Phenytoin Sodium 400 mg 07/09/22 21:00 07/11/22 21:14 Phenytoin Sodium Extended 100 Mg Capsule PO 400 mg BEDTIME YOHAN Administration Quetiapine Fumarate 200 mg 07/09/22 21:00 07/12/22 07:34 Quetiapine Fumarate 200 Mg Tablet PO 200 mg BID YOHAN Administration Sodium Chloride 3 ml 07/12/22 00:00 07/12/22 07:36 0.9 % Sodium Chloride Flush 3 Ml Syringe IVFLUSH 3 ml QSHIFT YOHAN Administration Trazodone HCl 100 mg 07/09/22 21:00 07/11/22 21:15 Trazodone Hcl 100 Mg Tablet PO 100 mg BEDTIME YOHAN Administration Vitamin D 25 mcg 07/10/22 09:00 07/12/22 07:34 Cholecalciferol (Vitamin D3) 25 Mcg Tablet PO 25 mcg DAILY YOHAN Administration Discontinued Medications Generic Name Dose Route Start Last Admin Trade Name Leonel PRN Reason Stop Dose Admin Acetaminophen 975 mg 07/08/22 07:03 07/08/22 07:45 Acetaminophen 325 Mg Tablet PO 07/08/22 07:04 975 mg ONCE ONE Administration Acetaminophen 975 mg 07/09/22 01:45 07/09/22 01:53 Acetaminophen 325 Mg Tablet PO 07/09/22 01:46 975 mg ONCE ONE Administration Cyclobenzaprine HCl 10 mg 07/08/22 07:03 07/08/22 07:45 Cyclobenzaprine Hcl 10 Mg Tablet PO 07/08/22 07:04 10 mg ONCE ONE Administration Cyclobenzaprine HCl 10 mg 07/09/22 01:45 07/09/22 01:53 Cyclobenzaprine Hcl 10 Mg Tablet PO 07/09/22 01:46 10 mg ONCE ONE Administration Empagliflozin 10 mg 07/10/22 09:00 07/11/22 09:47 Empagliflozin 10 Mg Tablet PO 10 mg DAILY YOHAN Administration Vancomycin HCl 2,000 mg in 520 mls @ 260 mls/hr 07/11/22 21:21 07/12/22 00:48 Vancomycin/Ns IV 07/11/22 23:20 Infused ONCE ONE Infusion Ceftriaxone Sodium 1 gm/ 50 mls @ 100 mls/hr 07/11/22 21:23 07/11/22 22:14 Sodium Chloride IV 07/11/22 21:52 Infused ONCE ONE Infusion Sodium Chloride 1,000 mls @ 999 mls/hr 07/11/22 22:08 07/12/22 00:09 Ns IV 07/11/22 23:08 Infused .Q1H1M ONE Infusion Sodium Chloride 1,000 mls @ 999 mls/hr 07/11/22 23:48 07/12/22 04:01 Ns IV 07/12/22 00:48 Infused .Q1H1M ONE Infusion Insulin Human Lispro 0 unit 07/09/22 17:45 07/11/22 18:11 Insulin Lispro 100 Unit/Ml 3 Ml Vial SUBCUT 2 unit TIDAC [facility] Administration Protocol Isosorbide Mononitrate 60 mg 07/09/22 13:45 07/11/22 09:46 Isosorbide Mononitrate 60 Mg Tab.Er.24h PO 60 mg DAILY [facility] Administration Protocol Metformin HCl 1,000 mg 07/09/22 13:45 07/11/22 09:44 Metformin Hcl 1,000 Mg Tablet PO 1,000 mg DAILY YOHAN Administration Metoprolol Succinate 75 mg 07/09/22 21:00 07/11/22 21:15 Metoprolol Succinate Er 25 Mg Tab.Er.24h PO 75 mg BID [facility] Administration Protocol Oxycodone HCl 5 mg 07/08/22 09:26 07/08/22 09:31 Oxycodone Hcl Immed Release 5 Mg Tablet PO 07/08/22 09:27 5 mg ONCE ONE Administration Torsemide 40 mg 07/09/22 13:45 07/11/22 09:45 Torsemide 20 Mg Tablet PO 40 mg DAILY [facility] Administration Protocol <Marc Noel MD - Last Filed: 07/11/22 22:43> Medical Decision Making Medical Decision Making MDM Narrative: 62-year-old male generally immobile presents after mechanical fall. He did not hit his head or lose consciousness. Denies any neurologic deficits. Predominately describes severe lower back pain. The pain does not radiate. Not associated with numbness or tingling. There is no saddle paresthesia loss of kei wel or bladder control. Will obtain imaging studies, laboratory analysis is needed. Will provide patient with analgesics and re-evaluate. <Anthony Garza MD - Last Filed: 07/12/22 11:08> Differential Diagnosis Differential Diagnoses: The differential diagnosis associated with the presentation includes (Contusion, sprain, strain, compression fracture, burst fracture, acute on chronic pain) <Anthony Garza MD - Last Filed: 07/12/22 11:08> Admission/Observation Consideration of admission/observation: Escalation of care including admission/observation considered <Anthony Garza MD - Last Filed: 07/12/22 11:08> Lab Data MDM Lab Attestation statement: I reviewed the patient's lab results. <Anthony Garza MD - Last Filed: 07/12/22 11:08> Result Diagrams: 07/08/22 05:32 07/08/22 05:32 <Anthony Garza MD - Last Filed: 07/12/22 11:08> Labs: Lab Results 07/08/22 07/08/22 07/08/22 Range/Units 05:32 05:32 12:39 WBC 10.0 (4.8-10.8) X10*3/uL RBC 5.06 (4.60-5.80) X10*6/uL Hgb 11.1 L (14.0-18.0) g/dl Hct 38.7 L (42.0-52.0) % MCV 76.5 L (80.0-98.0) fL MCH 21.9 L (27.0-33.0) pg MCHC 28.7 L (31.0-36.0) g/dl RDW 18.4 H (11.0-16.0) % Plt Count 273 (160-400) X10*3/uL MPV 10.3 (9.4-12.4) fL Immature Gran % (Auto) (0.0-0.4) % Neut % (Auto) (45-73) % Lymph % (Auto) (20-40) % [place] % (Auto) (2-11) % Eos % (Auto) (0-4) % Baso % (Auto) (0-2) % Lymph # (Auto) (1.2-4.9) X10*3/uL [place] # (Auto) (0.1-1.2) X10*3/uL Eos # (Auto) (0.0-0.4) X10*3/uL Baso # (Auto) (0.0-0.2) X10*3/uL Abs Immat Gran (auto) (0.00-0.03) X10*3/uL Absolute Neuts (auto) (2.0-8.3) x10*3/uL Absolute Nucleated RBC 0.000 (0.0-0.012) X10*3/uL Nucleated RBC % (auto) 0.0 (0.0-0.2) /100WBC Sodium 140 (135-145) mmol/L Potassium 3.6 (3.3-5.1) mmol/L Chloride 94 L (96-108) mmol/L Carbon Dioxide 32 H (22-29) mmol/L Anion Gap 18 (12-20) BUN 7 L (9-16) mg/dL Creatinine 0.88 (0.5-1.4) mg/dL Estim Creat Clear Calc 143.5 Estimated GFR > 60 POC Glucose (60-115) mg/dL Random Glucose 193 H (60-115) mg/dL Lactic Acid (0.5-2.0) mmol/L Calcium 8.7 (8.4-10.2) mg/dL Iron (45-160) mcg/dL TIBC (228-428) mcg/dL % Saturation (15-50) % Unsat Iron Binding ug/dL Total Bilirubin 0.5 (0.0-1.0) mg/dL AST 14 (5-37) U/L ALT 12 (0-40) U/L Alkaline Phosphatase 126 H (39-117) U/L Total Protein 6.7 (6.5-8.0) g/dL Albumin 3.7 (3.5-5.0) g/dL Urine Color Urine Appearance Urine pH (5.0-9.0) Ur Specific [place] (1.005-1.025) Urine Protein (Neg-Trace) mg/dL Urine Glucose (UA) (Negative) mg/dL Urine Ketones (Negative) mg/dL Urine Blood (Negative) Urine Nitrite (Negative) Ur Leukocyte Esterase (Negative) Urine RBC (0-2) /HPF Urine WBC (0-5) /HPF Ur Squamous Epith Cells (0-2) /HPF Urine Bacteria (None Seen) Hyaline Casts (0-2) /LPF Influenza Type A (PCR) NEGATIVE (Negative) Influenza Type B (PCR) NEGATIVE (Negative) RSV RNA Qual (PCR) NEGATIVE (Negative) SARS-CoV-2 RNA (RT-PCR) NEGATIVE (Negative) 07/09/22 07/09/22 07/09/22 Range/Units 14:30 17:34 18:01 WBC (4.8-10.8) X10*3/uL RBC (4.60-5.80) X10*6/uL Hgb (14.0-18.0) g/dl Hct (42.0-52.0) % MCV (80.0-98.0) fL MCH (27.0-33.0) pg MCHC (31.0-36.0) g/dl RDW (11.0-16.0) % Plt Count (160-400) X10*3/uL MPV (9.4-12.4) fL Immature Gran % (Auto) (0.0-0.4) % Neut % (Auto) (45-73) % Lymph % (Auto) (20-40) % [place] % (Auto) (2-11) % Eos % (Auto) (0-4) % Baso % (Auto) (0-2) % Lymph # (Auto) (1.2-4.9) X10*3/uL [place] # (Auto) (0.1-1.2) X10*3/uL Eos # (Auto) (0.0-0.4) X10*3/uL Baso # (Auto) (0.0-0.2) X10*3/uL Abs Immat Gran (auto) (0.00-0.03) X10*3/uL Absolute Neuts (auto) (2.0-8.3) x10*3/uL Absolute Nucleated RBC (0.0-0.012) X10*3/uL Nucleated RBC % (auto) (0.0-0.2) /100WBC Sodium (135-145) mmol/L Potassium (3.3-5.1) mmol/L Chloride (96-108) mmol/L Carbon Dioxide (22-29) mmol/L Anion Gap (12-20) BUN (9-16) mg/dL Creatinine (0.5-1.4) mg/dL Estim Creat Clear Calc Estimated GFR POC Glucose 262 H 264 H (60-115) mg/dL Random Glucose (60-115) mg/dL Lactic Acid (0.5-2.0) mmol/L Calcium (8.4-10.2) mg/dL Iron (45-160) mcg/dL TIBC (228-428) mcg/dL % Saturation (15-50) % Unsat Iron Binding ug/dL Total Bilirubin (0.0-1.0) mg/dL AST (5-37) U/L ALT (0-40) U/L Alkaline Phosphatase (39-117) U/L Total Protein (6.5-8.0) g/dL Albumin (3.5-5.0) g/dL Urine Color Yellow Urine Appearance Cloudy Urine pH 6.5 (5.0-9.0) Ur Specific [place] 1.015 (1.005-1.025) Urine Protein 30 (1+) H (Neg-Trace) mg/dL Urine Glucose (UA) >=1000 H (Negative) mg/dL Urine Ketones 15 (Negative) mg/dL Urine Blood Large (3+) H (Negative) Urine Nitrite Negative (Negative) Ur Leukocyte Esterase Large (3+) H (Negative) Urine RBC 11-20 H (0-2) /HPF Urine WBC >50 H (0-5) /HPF Ur Squamous Epith Cells 0-2 (0-2) /HPF Urine Bacteria Trace (None Seen) Hyaline Casts 0-2 (0-2) /LPF Influenza Type A (PCR) (Negative) Influenza Type B (PCR) (Negative) RSV RNA Qual (PCR) (Negative) SARS-CoV-2 RNA (RT-PCR) (Negative) 07/09/22 07/10/22 07/10/22 Range/Units 21:07 07:07 13:00 WBC (4.8-10.8) X10*3/uL RBC (4.60-5.80) X10*6/uL Hgb (14.0-18.0) g/dl Hct (42.0-52.0) % MCV (80.0-98.0) fL MCH (27.0-33.0) pg MCHC (31.0-36.0) g/dl RDW (11.0-16.0) % Plt Count (160-400) X10*3/uL MPV (9.4-12.4) fL Immature Gran % (Auto) (0.0-0.4) % Neut % (Auto) (45-73) % Lymph % (Auto) (20-40) % [place] % (Auto) (2-11) % Eos % (Auto) (0-4) % Baso % (Auto) (0-2) % Lymph # (Auto) (1.2-4.9) X10*3/uL [place] # (Auto) (0.1-1.2) X10*3/uL Eos # (Auto) (0.0-0.4) X10*3/uL Baso # (Auto) (0.0-0.2) X10*3/uL Abs Immat Gran (auto) (0.00-0.03) X10*3/uL Absolute Neuts (auto) (2.0-8.3) x10*3/uL Absolute Nucleated RBC (0.0-0.012) X10*3/uL Nucleated RBC % (auto) (0.0-0.2) /100WBC Sodium (135-145) mmol/L Potassium (3.3-5.1) mmol/L Chloride (96-108) mmol/L Carbon Dioxide (22-29) mmol/L Anion Gap (12-20) BUN (9-16) mg/dL Creatinine (0.5-1.4) mg/dL Estim Creat Clear Calc Estimated GFR POC Glucose 177 H 224 H 196 H (60-115) mg/dL Random Glucose (60-115) mg/dL Lactic Acid (0.5-2.0) mmol/L Calcium (8.4-10.2) mg/dL Iron (45-160) mcg/dL TIBC (228-428) mcg/dL % Saturation (15-50) % Unsat Iron Binding ug/dL Total Bilirubin (0.0-1.0) mg/dL AST (5-37) U/L ALT (0-40) U/L Alkaline Phosphatase (39-117) U/L Total Protein (6.5-8.0) g/dL Albumin (3.5-5.0) g/dL Urine Color Urine Appearance Urine pH (5.0-9.0) Ur Specific [place] (1.005-1.025) Urine Protein (Neg-Trace) mg/dL Urine Glucose (UA) (Negative) mg/dL Urine Ketones (Negative) mg/dL Urine Blood (Negative) Urine Nitrite (Negative) Ur Leukocyte Esterase (Negative) Urine RBC (0-2) /HPF Urine WBC (0-5) /HPF Ur Squamous Epith Cells (0-2) /HPF Urine Bacteria (None Seen) Hyaline Casts (0-2) /LPF Influenza Type A (PCR) (Negative) Influenza Type B (PCR) (Negative) RSV RNA Qual (PCR) (Negative) SARS-CoV-2 RNA (RT-PCR) (Negative) 07/10/22 07/11/22 07/11/22 Range/Units 18:25 07:04 12:13 WBC (4.8-10.8) X10*3/uL RBC (4.60-5.80) X10*6/uL Hgb (14.0-18.0) g/dl Hct (42.0-52.0) % MCV (80.0-98.0) fL MCH (27.0-33.0) pg MCHC (31.0-36.0) g/dl RDW (11.0-16.0) % Plt Count (160-400) X10*3/uL MPV (9.4-12.4) fL Immature Gran % (Auto) (0.0-0.4) % Neut % (Auto) (45-73) % Lymph % (Auto) (20-40) % [place] % (Auto) (2-11) % Eos % (Auto) (0-4) % Baso % (Auto) (0-2) % Lymph # (Auto) (1.2-4.9) X10*3/uL [place] # (Auto) (0.1-1.2) X10*3/uL Eos # (Auto) (0.0-0.4) X10*3/uL Baso # (Auto) (0.0-0.2) X10*3/uL Abs Immat Gran (auto) (0.00-0.03) X10*3/uL Absolute Neuts (auto) (2.0-8.3) x10*3/uL Absolute Nucleated RBC (0.0-0.012) X10*3/uL Nucleated RBC % (auto) (0.0-0.2) /100WBC Sodium (135-145) mmol/L Potassium (3.3-5.1) mmol/L Chloride (96-108) mmol/L Carbon Dioxide (22-29) mmol/L Anion Gap (12-20) BUN (9-16) mg/dL Creatinine (0.5-1.4) mg/dL Estim Creat Clear Calc Estimated GFR POC Glucose 200 H 219 H 183 H (60-115) mg/dL Random Glucose (60-115) mg/dL Lactic Acid (0.5-2.0) mmol/L Calcium (8.4-10.2) mg/dL Iron (45-160) mcg/dL TIBC (228-428) mcg/dL % Saturation (15-50) % Unsat Iron Binding ug/dL Total Bilirubin (0.0-1.0) mg/dL AST (5-37) U/L ALT (0-40) U/L Alkaline Phosphatase (39-117) U/L Total Protein (6.5-8.0) g/dL Albumin (3.5-5.0) g/dL Urine Color Urine Appearance Urine pH (5.0-9.0) Ur Specific [place] (1.005-1.025) Urine Protein (Neg-Trace) mg/dL Urine Glucose (UA) (Negative) mg/dL Urine Ketones (Negative) mg/dL Urine Blood (Negative) Urine Nitrite (Negative) Ur Leukocyte Esterase (Negative) Urine RBC (0-2) /HPF Urine WBC (0-5) /HPF Ur Squamous Epith Cells (0-2) /HPF Urine Bacteria (None Seen) Hyaline Casts (0-2) /LPF Influenza Type A (PCR) (Negative) Influenza Type B (PCR) (Negative) RSV RNA Qual (PCR) (Negative) SARS-CoV-2 RNA (RT-PCR) (Negative) 07/11/22 07/11/22 07/11/22 Range/Units 17:53 21:38 21:38 WBC 9.0 (4.8-10.8) X10*3/uL RBC 4.96 (4.60-5.80) X10*6/uL Hgb 10.7 L (14.0-18.0) g/dl Hct 38.2 L (42.0-52.0) % MCV 77.0 L (80.0-98.0) fL MCH 21.6 L (27.0-33.0) pg MCHC 28.0 L (31.0-36.0) g/dl RDW 19.1 H (11.0-16.0) % Plt Count 271 (160-400) X10*3/uL MPV 10.9 (9.4-12.4) fL Immature Gran % (Auto) 0.2 (0.0-0.4) % Neut % (Auto) 83.4 H (45-73) % Lymph % (Auto) 9.4 L (20-40) % [place] % (Auto) 5.9 (2-11) % Eos % (Auto) 1.0 (0-4) % Baso % (Auto) 0.1 (0-2) % Lymph # (Auto) 0.9 L (1.2-4.9) X10*3/uL [place] # (Auto) 0.5 (0.1-1.2) X10*3/uL Eos # (Auto) 0.1 (0.0-0.4) X10*3/uL Baso # (Auto) 0.0 (0.0-0.2) X10*3/uL Abs Immat Gran (auto) 0.02 (0.00-0.03) X10*3/uL Absolute Neuts (auto) 7.5 (2.0-8.3) x10*3/uL Absolute Nucleated RBC 0.000 (0.0-0.012) X10*3/uL Nucleated RBC % (auto) 0.0 (0.0-0.2) /100WBC Sodium (135-145) mmol/L Potassium (3.3-5.1) mmol/L Chloride (96-108) mmol/L Carbon Dioxide (22-29) mmol/L Anion Gap (12-20) BUN (9-16) mg/dL Creatinine (0.5-1.4) mg/dL Estim Creat Clear Calc Estimated GFR POC Glucose 196 H (60-115) mg/dL Random Glucose (60-115) mg/dL Lactic Acid 2.2 H* (0.5-2.0) mmol/L Calcium (8.4-10.2) mg/dL Iron (45-160) mcg/dL TIBC (228-428) mcg/dL % Saturation (15-50) % Unsat Iron Binding ug/dL Total Bilirubin (0.0-1.0) mg/dL AST (5-37) U/L ALT (0-40) U/L Alkaline Phosphatase (39-117) U/L Total Protein (6.5-8.0) g/dL Albumin (3.5-5.0) g/dL Urine Color Urine Appearance Urine pH (5.0-9.0) Ur Specific [place] (1.005-1.025) Urine Protein (Neg-Trace) mg/dL Urine Glucose (UA) (Negative) mg/dL Urine Ketones (Negative) mg/dL Urine Blood (Negative) Urine Nitrite (Negative) Ur Leukocyte Esterase (Negative) Urine RBC (0-2) /HPF Urine WBC (0-5) /HPF Ur Squamous Epith Cells (0-2) /HPF Urine Bacteria (None Seen) Hyaline Casts (0-2) /LPF Influenza Type A (PCR) (Negative) Influenza Type B (PCR) (Negative) RSV RNA Qual (PCR) (Negative) SARS-CoV-2 RNA (RT-PCR) (Negative) 07/11/22 Range/Units 21:39 WBC (4.8-10.8) X10*3/uL RBC (4.60-5.80) X10*6/uL Hgb (14.0-18.0) g/dl Hct (42.0-52.0) % MCV (80.0-98.0) fL MCH (27.0-33.0) pg MCHC (31.0-36.0) g/dl RDW (11.0-16.0) % Plt Count (160-400) X10*3/uL MPV (9.4-12.4) fL Immature Gran % (Auto) (0.0-0.4) % Neut % (Auto) (45-73) % Lymph % (Auto) (20-40) % [place] % (Auto) (2-11) % Eos % (Auto) (0-4) % Baso % (Auto) (0-2) % Lymph # (Auto) (1.2-4.9) X10*3/uL [place] # (Auto) (0.1-1.2) X10*3/uL Eos # (Auto) (0.0-0.4) X10*3/uL Baso # (Auto) (0.0-0.2) X10*3/uL Abs Immat Gran (auto) (0.00-0.03) X10*3/uL Absolute Neuts (auto) (2.0-8.3) x10*3/uL Absolute Nucleated RBC (0.0-0.012) X10*3/uL Nucleated RBC % (auto) (0.0-0.2) /100WBC Sodium 135 (135-145) mmol/L Potassium 3.4 (3.3-5.1) mmol/L Chloride 89 L (96-108) mmol/L Carbon Dioxide 37 H (22-29) mmol/L Anion Gap 12 (12-20) BUN 15 (9-16) mg/dL Creatinine 1.03 (0.5-1.4) mg/dL Estim Creat Clear Calc 122.6 Estimated GFR > 60 POC Glucose (60-115) mg/dL Random Glucose 211 H (60-115) mg/dL Lactic Acid (0.5-2.0) mmol/L Calcium 8.9 (8.4-10.2) mg/dL Iron 34 L (45-160) mcg/dL TIBC 252 (228-428) mcg/dL % Saturation 13 L (15-50) % Unsat Iron Binding 218 ug/dL Total Bilirubin 0.4 (0.0-1.0) mg/dL AST 10 (5-37) U/L ALT 7 (0-40) U/L Alkaline Phosphatase 104 (39-117) U/L Total Protein 6.4 L (6.5-8.0) g/dL Albumin 3.4 L (3.5-5.0) g/dL Urine Color Urine Appearance Urine pH (5.0-9.0) Ur Specific [place] (1.005-1.025) Urine Protein (Neg-Trace) mg/dL Urine Glucose (UA) (Negative) mg/dL Urine Ketones (Negative) mg/dL Urine Blood (Negative) Urine Nitrite (Negative) Ur Leukocyte Esterase (Negative) Urine RBC (0-2) /HPF Urine WBC (0-5) /HPF Ur Squamous Epith Cells (0-2) /HPF Urine Bacteria (None Seen) Hyaline Casts (0-2) /LPF Influenza Type A (PCR) (Negative) Influenza Type B (PCR) (Negative) RSV RNA Qual (PCR) (Negative) SARS-CoV-2 RNA (RT-PCR) (Negative) <Anthony Garza MD - Last Filed: 07/12/22 11:08> Lab Results 07/08/22 07/08/22 07/08/22 Range/Units 05:32 05:32 12:39 WBC 10.0 (4.8-10.8) X10*3/uL RBC 5.06 (4.60-5.80) X10*6/uL Hgb 11.1 L (14.0-18.0) g/dl Hct 38.7 L (42.0-52.0) % MCV 76.5 L (80.0-98.0) fL MCH 21.9 L (27.0-33.0) pg MCHC 28.7 L (31.0-36.0) g/dl RDW 18.4 H (11.0-16.0) % Plt Count 273 (160-400) X10*3/uL MPV 10.3 (9.4-12.4) fL Immature Gran % (Auto) (0.0-0.4) % Neut % (Auto) (45-73) % Lymph % (Auto) (20-40) % [place] % (Auto) (2-11) % Eos % (Auto) (0-4) % Baso % (Auto) (0-2) % Lymph # (Auto) (1.2-4.9) X10*3/uL [place] # (Auto) (0.1-1.2) X10*3/uL Eos # (Auto) (0.0-0.4) X10*3/uL Baso # (Auto) (0.0-0.2) X10*3/uL Abs Immat Gran (auto) (0.00-0.03) X10*3/uL Absolute Neuts (auto) (2.0-8.3) x10*3/uL Absolute Nucleated RBC 0.000 (0.0-0.012) X10*3/uL Nucleated RBC % (auto) 0.0 (0.0-0.2) /100WBC Sodium 140 (135-145) mmol/L Potassium 3.6 (3.3-5.1) mmol/L Chloride 94 L (96-108) mmol/L Carbon Dioxide 32 H (22-29) mmol/L Anion Gap 18 (12-20) BUN 7 L (9-16) mg/dL Creatinine 0.88 (0.5-1.4) mg/dL Estim Creat Clear Calc 143.5 Estimated GFR > 60 POC Glucose (60-115) mg/dL Random Glucose 193 H (60-115) mg/dL Lactic Acid (0.5-2.0) mmol/L Calcium 8.7 (8.4-10.2) mg/dL Iron (45-160) mcg/dL TIBC (228-428) mcg/dL % Saturation (15-50) % Unsat Iron Binding ug/dL Total Bilirubin 0.5 (0.0-1.0) mg/dL AST 14 (5-37) U/L ALT 12 (0-40) U/L Alkaline Phosphatase 126 H (39-117) U/L Total Protein 6.7 (6.5-8.0) g/dL Albumin 3.7 (3.5-5.0) g/dL Urine Color Urine Appearance Urine pH (5.0-9.0) Ur Specific [place] (1.005-1.025) Urine Protein (Neg-Trace) mg/dL Urine Glucose (UA) (Negative) mg/dL Urine Ketones (Negative) mg/dL Urine Blood (Negative) Urine Nitrite (Negative) Ur Leukocyte Esterase (Negative) Urine RBC (0-2) /HPF Urine WBC (0-5) /HPF Ur Squamous Epith Cells (0-2) /HPF Urine Bacteria (None Seen) Hyaline Casts (0-2) /LPF Influenza Type A (PCR) NEGATIVE (Negative) Influenza Type B (PCR) NEGATIVE (Negative) RSV RNA Qual (PCR) NEGATIVE (Negative) SARS-CoV-2 RNA (RT-PCR) NEGATIVE (Negative) 07/09/22 07/09/22 07/09/22 Range/Units 14:30 17:34 18:01 WBC (4.8-10.8) X10*3/uL RBC (4.60-5.80) X10*6/uL Hgb (14.0-18.0) g/dl Hct (42.0-52.0) % MCV (80.0-98.0) fL MCH (27.0-33.0) pg MCHC (31.0-36.0) g/dl RDW (11.0-16.0) % Plt Count (160-400) X10*3/uL MPV (9.4-12.4) fL Immature Gran % (Auto) (0.0-0.4) % Neut % (Auto) (45-73) % Lymph % (Auto) (20-40) % [place] % (Auto) (2-11) % Eos % (Auto) (0-4) % Baso % (Auto) (0-2) % Lymph # (Auto) (1.2-4.9) X10*3/uL [place] # (Auto) (0.1-1.2) X10*3/uL Eos # (Auto) (0.0-0.4) X10*3/uL Baso # (Auto) (0.0-0.2) X10*3/uL Abs Immat Gran (auto) (0.00-0.03) X10*3/uL Absolute Neuts (auto) (2.0-8.3) x10*3/uL Absolute Nucleated RBC (0.0-0.012) X10*3/uL Nucleated RBC % (auto) (0.0-0.2) /100WBC Sodium (135-145) mmol/L Potassium (3.3-5.1) mmol/L Chloride (96-108) mmol/L Carbon Dioxide (22-29) mmol/L Anion Gap (12-20) BUN (9-16) mg/dL Creatinine (0.5-1.4) mg/dL Estim Creat Clear Calc Estimated GFR POC Glucose 262 H 264 H (60-115) mg/dL Random Glucose (60-115) mg/dL Lactic Acid (0.5-2.0) mmol/L Calcium (8.4-10.2) mg/dL Iron (45-160) mcg/dL TIBC (228-428) mcg/dL % Saturation (15-50) % Unsat Iron Binding ug/dL Total Bilirubin (0.0-1.0) mg/dL AST (5-37) U/L ALT (0-40) U/L Alkaline Phosphatase (39-117) U/L Total Protein (6.5-8.0) g/dL Albumin (3.5-5.0) g/dL Urine Color Yellow Urine Appearance Cloudy Urine pH 6.5 (5.0-9.0) Ur Specific [place] 1.015 (1.005-1.025) Urine Protein 30 (1+) H (Neg-Trace) mg/dL Urine Glucose (UA) >=1000 H (Negative) mg/dL Urine Ketones 15 (Negative) mg/dL Urine Blood Large (3+) H (Negative) Urine Nitrite Negative (Negative) Ur Leukocyte Esterase Large (3+) H (Negative) Urine RBC 11-20 H (0-2) /HPF Urine WBC >50 H (0-5) /HPF Ur Squamous Epith Cells 0-2 (0-2) /HPF Urine Bacteria Trace (None Seen) Hyaline Casts 0-2 (0-2) /LPF Influenza Type A (PCR) (Negative) Influenza Type B (PCR) (Negative) RSV RNA Qual (PCR) (Negative) SARS-CoV-2 RNA (RT-PCR) (Negative) 07/09/22 07/10/22 07/10/22 Range/Units 21:07 07:07 13:00 WBC (4.8-10.8) X10*3/uL RBC (4.60-5.80) X10*6/uL Hgb (14.0-18.0) g/dl Hct (42.0-52.0) % MCV (80.0-98.0) fL MCH (27.0-33.0) pg MCHC (31.0-36.0) g/dl RDW (11.0-16.0) % Plt Count (160-400) X10*3/uL MPV (9.4-12.4) fL Immature Gran % (Auto) (0.0-0.4) % Neut % (Auto) (45-73) % Lymph % (Auto) (20-40) % [place] % (Auto) (2-11) % Eos % (Auto) (0-4) % Baso % (Auto) (0-2) % Lymph # (Auto) (1.2-4.9) X10*3/uL [place] # (Auto) (0.1-1.2) X10*3/uL Eos # (Auto) (0.0-0.4) X10*3/uL Baso # (Auto) (0.0-0.2) X10*3/uL Abs Immat Gran (auto) (0.00-0.03) X10*3/uL Absolute Neuts (auto) (2.0-8.3) x10*3/uL Absolute Nucleated RBC (0.0-0.012) X10*3/uL Nucleated RBC % (auto) (0.0-0.2) /100WBC Sodium (135-145) mmol/L Potassium (3.3-5.1) mmol/L Chloride (96-108) mmol/L Carbon Dioxide (22-29) mmol/L Anion Gap (12-20) BUN (9-16) mg/dL Creatinine (0.5-1.4) mg/dL Estim Creat Clear Calc Estimated GFR POC Glucose 177 H 224 H 196 H (60-115) mg/dL Random Glucose (60-115) mg/dL Lactic Acid (0.5-2.0) mmol/L Calcium (8.4-10.2) mg/dL Iron (45-160) mcg/dL TIBC (228-428) mcg/dL % Saturation (15-50) % Unsat Iron Binding ug/dL Total Bilirubin (0.0-1.0) mg/dL AST (5-37) U/L ALT (0-40) U/L Alkaline Phosphatase (39-117) U/L Total Protein (6.5-8.0) g/dL Albumin (3.5-5.0) g/dL Urine Color Urine Appearance Urine pH (5.0-9.0) Ur Specific [place] (1.005-1.025) Urine Protein (Neg-Trace) mg/dL Urine Glucose (UA) (Negative) mg/dL Urine Ketones (Negative) mg/dL Urine Blood (Negative) Urine Nitrite (Negative) Ur Leukocyte Esterase (Negative) Urine RBC (0-2) /HPF Urine WBC (0-5) /HPF Ur Squamous Epith Cells (0-2) /HPF Urine Bacteria (None Seen) Hyaline Casts (0-2) /LPF Influenza Type A (PCR) (Negative) Influenza Type B (PCR) (Negative) RSV RNA Qual (PCR) (Negative) SARS-CoV-2 RNA (RT-PCR) (Negative) 07/10/22 07/11/22 07/11/22 Range/Units 18:25 07:04 12:13 WBC (4.8-10.8) X10*3/uL RBC (4.60-5.80) X10*6/uL Hgb (14.0-18.0) g/dl Hct (42.0-52.0) % MCV (80.0-98.0) fL MCH (27.0-33.0) pg MCHC (31.0-36.0) g/dl RDW (11.0-16.0) % Plt Count (160-400) X10*3/uL MPV (9.4-12.4) fL Immature Gran % (Auto) (0.0-0.4) % Neut % (Auto) (45-73) % Lymph % (Auto) (20-40) % [place] % (Auto) (2-11) % Eos % (Auto) (0-4) % Baso % (Auto) (0-2) % Lymph # (Auto) (1.2-4.9) X10*3/uL [place] # (Auto) (0.1-1.2) X10*3/uL Eos # (Auto) (0.0-0.4) X10*3/uL Baso # (Auto) (0.0-0.2) X10*3/uL Abs Immat Gran (auto) (0.00-0.03) X10*3/uL Absolute Neuts (auto) (2.0-8.3) x10*3/uL Absolute Nucleated RBC (0.0-0.012) X10*3/uL Nucleated RBC % (auto) (0.0-0.2) /100WBC Sodium (135-145) mmol/L Potassium (3.3-5.1) mmol/L Chloride (96-108) mmol/L Carbon Dioxide (22-29) mmol/L Anion Gap (12-20) BUN (9-16) mg/dL Creatinine (0.5-1.4) mg/dL Estim Creat Clear Calc Estimated GFR POC Glucose 200 H 219 H 183 H (60-115) mg/dL Random Glucose (60-115) mg/dL Lactic Acid (0.5-2.0) mmol/L Calcium (8.4-10.2) mg/dL Iron (45-160) mcg/dL TIBC (228-428) mcg/dL % Saturation (15-50) % Unsat Iron Binding ug/dL Total Bilirubin (0.0-1.0) mg/dL AST (5-37) U/L ALT (0-40) U/L Alkaline Phosphatase (39-117) U/L Total Protein (6.5-8.0) g/dL Albumin (3.5-5.0) g/dL Urine Color Urine Appearance Urine pH (5.0-9.0) Ur Specific [place] (1.005-1.025) Urine Protein (Neg-Trace) mg/dL Urine Glucose (UA) (Negative) mg/dL Urine Ketones (Negative) mg/dL Urine Blood (Negative) Urine Nitrite (Negative) Ur Leukocyte Esterase (Negative) Urine RBC (0-2) /HPF Urine WBC (0-5) /HPF Ur Squamous Epith Cells (0-2) /HPF Urine Bacteria (None Seen) Hyaline Casts (0-2) /LPF Influenza Type A (PCR) (Negative) Influenza Type B (PCR) (Negative) RSV RNA Qual (PCR) (Negative) SARS-CoV-2 RNA (RT-PCR) (Negative) 07/11/22 07/11/22 07/11/22 Range/Units 17:53 21:38 21:38 WBC 9.0 (4.8-10.8) X10*3/uL RBC 4.96 (4.60-5.80) X10*6/uL Hgb 10.7 L (14.0-18.0) g/dl Hct 38.2 L (42.0-52.0) % MCV 77.0 L (80.0-98.0) fL MCH 21.6 L (27.0-33.0) pg MCHC 28.0 L (31.0-36.0) g/dl RDW 19.1 H (11.0-16.0) % Plt Count 271 (160-400) X10*3/uL MPV 10.9 (9.4-12.4) fL Immature Gran % (Auto) 0.2 (0.0-0.4) % Neut % (Auto) 83.4 H (45-73) % Lymph % (Auto) 9.4 L (20-40) % [place] % (Auto) 5.9 (2-11) % Eos % (Auto) 1.0 (0-4) % Baso % (Auto) 0.1 (0-2) % Lymph # (Auto) 0.9 L (1.2-4.9) X10*3/uL [place] # (Auto) 0.5 (0.1-1.2) X10*3/uL Eos # (Auto) 0.1 (0.0-0.4) X10*3/uL Baso # (Auto) 0.0 (0.0-0.2) X10*3/uL Abs Immat Gran (auto) 0.02 (0.00-0.03) X10*3/uL Absolute Neuts (auto) 7.5 (2.0-8.3) x10*3/uL Absolute Nucleated RBC 0.000 (0.0-0.012) X10*3/uL Nucleated RBC % (auto) 0.0 (0.0-0.2) /100WBC Sodium (135-145) mmol/L Potassium (3.3-5.1) mmol/L Chloride (96-108) mmol/L Carbon Dioxide (22-29) mmol/L Anion Gap (12-20) BUN (9-16) mg/dL Creatinine (0.5-1.4) mg/dL Estim Creat Clear Calc Estimated GFR POC Glucose 196 H (60-115) mg/dL Random Glucose (60-115) mg/dL Lactic Acid 2.2 H* (0.5-2.0) mmol/L Calcium (8.4-10.2) mg/dL Iron (45-160) mcg/dL TIBC (228-428) mcg/dL % Saturation (15-50) % Unsat Iron Binding ug/dL Total Bilirubin (0.0-1.0) mg/dL AST (5-37) U/L ALT (0-40) U/L Alkaline Phosphatase (39-117) U/L Total Protein (6.5-8.0) g/dL Albumin (3.5-5.0) g/dL Urine Color Urine Appearance Urine pH (5.0-9.0) Ur Specific [place] (1.005-1.025) Urine Protein (Neg-Trace) mg/dL Urine Glucose (UA) (Negative) mg/dL Urine Ketones (Negative) mg/dL Urine Blood (Negative) Urine Nitrite (Negative) Ur Leukocyte Esterase (Negative) Urine RBC (0-2) /HPF Urine WBC (0-5) /HPF Ur Squamous Epith Cells (0-2) /HPF Urine Bacteria (None Seen) Hyaline Casts (0-2) /LPF Influenza Type A (PCR) (Negative) Influenza Type B (PCR) (Negative) RSV RNA Qual (PCR) (Negative) SARS-CoV-2 RNA (RT-PCR) (Negative) 07/11/22 Range/Units 21:39 WBC (4.8-10.8) X10*3/uL RBC (4.60-5.80) X10*6/uL Hgb (14.0-18.0) g/dl Hct (42.0-52.0) % MCV (80.0-98.0) fL MCH (27.0-33.0) pg MCHC (31.0-36.0) g/dl RDW (11.0-16.0) % Plt Count (160-400) X10*3/uL MPV (9.4-12.4) fL Immature Gran % (Auto) (0.0-0.4) % Neut % (Auto) (45-73) % Lymph % (Auto) (20-40) % [place] % (Auto) (2-11) % Eos % (Auto) (0-4) % Baso % (Auto) (0-2) % Lymph # (Auto) (1.2-4.9) X10*3/uL [place] # (Auto) (0.1-1.2) X10*3/uL Eos # (Auto) (0.0-0.4) X10*3/uL Baso # (Auto) (0.0-0.2) X10*3/uL Abs Immat Gran (auto) (0.00-0.03) X10*3/uL Absolute Neuts (auto) (2.0-8.3) x10*3/uL Absolute Nucleated RBC (0.0-0.012) X10*3/uL Nucleated RBC % (auto) (0.0-0.2) /100WBC Sodium 135 (135-145) mmol/L Potassium 3.4 (3.3-5.1) mmol/L Chloride 89 L (96-108) mmol/L Carbon Dioxide 37 H (22-29) mmol/L Anion Gap 12 (12-20) BUN 15 (9-16) mg/dL Creatinine 1.03 (0.5-1.4) mg/dL Estim Creat Clear Calc 122.6 Estimated GFR > 60 POC Glucose (60-115) mg/dL Random Glucose 211 H (60-115) mg/dL Lactic Acid (0.5-2.0) mmol/L Calcium 8.9 (8.4-10.2) mg/dL Iron 34 L (45-160) mcg/dL TIBC 252 (228-428) mcg/dL % Saturation 13 L (15-50) % Unsat Iron Binding 218 ug/dL Total Bilirubin 0.4 (0.0-1.0) mg/dL AST 10 (5-37) U/L ALT 7 (0-40) U/L Alkaline Phosphatase 104 (39-117) U/L Total Protein 6.4 L (6.5-8.0) g/dL Albumin 3.4 L (3.5-5.0) g/dL Urine Color Urine Appearance Urine pH (5.0-9.0) Ur Specific [place] (1.005-1.025) Urine Protein (Neg-Trace) mg/dL Urine Glucose (UA) (Negative) mg/dL Urine Ketones (Negative) mg/dL Urine Blood (Negative) Urine Nitrite (Negative) Ur Leukocyte Esterase (Negative) Urine RBC (0-2) /HPF Urine WBC (0-5) /HPF Ur Squamous Epith Cells (0-2) /HPF Urine Bacteria (None Seen) Hyaline Casts (0-2) /LPF Influenza Type A (PCR) (Negative) Influenza Type B (PCR) (Negative) RSV RNA Qual (PCR) (Negative) SARS-CoV-2 RNA (RT-PCR) (Negative) <Marc Noel MD - Last Filed: 07/11/22 22:43> Radiology Impression Discussion of test interpretation with radiology: I have reviewed the radiologist's reading. (IMPRESSION: 1. No acute abnormalities identified within the lumbar spine. 2. Chronic spondylosis of the lumbar spine most pronounced at L4-L5 unchanged compared with CT the abdomen and pelvis 06/27/2021. Findings include a moderate posterior broad-based disc- osteophyte complex contributing to moder) <Anthony Garza MD - Last Filed: 07/12/22 11:08> External Record Review External record reviewed: Other (Cardiology and neurology consultations) <Anthony Garza MD - Last Filed: 07/12/22 11:08> Tests considered The following testing was considered but not selected: MRI of the lumbar spine however, no evidence of acute cauda equina syndrome or epidural abscess <Anthony Garza MD - Last Filed: 07/12/22 11:08> Prescription Management I considered prescription management with: Pain Medication <Anthony Garza MD - Last Filed: 07/12/22 11:08> Chronic Conditions Patient?s care impacted by: Diabetes <Anthony Garza MD - Last Filed: 07/12/22 11:08> Core Measures Measure exclusions: not indicated <Anthony Garza MD - Last Filed: 07/12/22 11:08> Discharge Plan Discharge Clinical Impression: Acute lumbar back pain, Accidental fall, Alkaline phosphatase elevation, Cholelithiasis, UTI (urinary tract infection) <Anthony Garza MD - Last Filed: 07/12/22 11:08> Patient Disposition: Admitted As Inpatient <Anthony Garza MD - Last Filed: 07/12/22 11:08> Interventions: Admission Worksheet (ED) Last Done: 07/12/22 03:39 <Anthony Garza MD - Last Filed: 07/12/22 11:08> Discharge Date/Time: 07/12/22 03:40 <Anthony Garza MD - Last Filed: 07/12/22 11:08>
[2022-07-08] MEDS: oxyCODONE HCl Immed Release 5 MG TABLET PO ×2 (09:31→22:08)
[2022-07-08 13:39] LABS: Influenza A PCR NEGATIVE (Negative); Influenza B PCR NEGATIVE (Negative); Resp Syncy Virus RNA Qual PCR NEGATIVE (Negative); SARS COV2 PCR INHOUSE NEGATIVE (Negative)
--- NOTE | 2022-07-08 15:15 | MHC.CM.ED ---
Received case management consult from Dr Garza. Patient came to the ER due to a fall. Work up essentially negative. Physical therapy eval completed. Short term rehab is recommended. Patient was in the ER on 06/28. Short term rehab was recommended at that time. Patient declined and went home. Met with patient in regards to discharge planning. Patient lives alone and is active with [facility]. Patient was positive for Covid on 06/15. Current Covid swab is negative. Patient agreeable to STR at this time. Also aware referral for short term rehab will have to be broadcasted at this time. Referral broadcasted within 20 miles to all facilities that are contracted with patient's insurance. Continue to monitor for d/c needs.
--- NOTE | 2022-07-08 22:16 | PC.NURSE ---
Patient is alert and oriented x3. He is able to make is needs known. VSS. patient c/o lower back pain 03/15. Provider notified. Patient medicated with Oxycodone 5 mg PO per AUG, effect pending. Patient is independent with bed mobility and uses urinal independently. Call womack within patient's reach.
[2022-07-09 01:49] VITALS: BP 134/76; PULSE 102; RESP 17; TEMP 36.8; O2SAT 100
[2022-07-09] MEDS: Cyclobenzaprine HCl 10 MG TABLET PO (01:53)
[2022-07-09] MEDS: Acetaminophen 325 MG TABLET 975 MG PO (01:53)
--- NOTE | 2022-07-09 02:51 | PC.NURSE ---
Patient is resting with his eyes closed, RR 18, O2 Sat 97% on O2 at 4 LPM NC. Call womack within patient's reach.
[2022-07-09 06:38] VITALS: RESP 19
[2022-07-09] MEDS: oxyCODONE HCl Immed Release 5 MG TABLET PO ×2 (09:38→17:56)
[2022-07-09 11:27] VITALS: BP 141/83; PULSE 85; RESP 20; O2SAT 99
--- NOTE | 2022-07-09 12:42 | PHA.MEDREC ---
Pharmacy Consult ? Medication Reconciliation Pharmacy has completed the medication reconciliation. Med list obtained from [facility]. Per [facility] med list patient is supposed to be on digoxin but has not filled this medication since 04/21 for 30 day supply
[2022-07-09] MEDS: Isosorbide Mononitrate 60 MG TAB.ER.24H PO (14:21)
[2022-07-09] MEDS: Gabapentin 400 MG CAPSULE PO ×3 (14:22→21:51)
[2022-07-09] MEDS: LORazepam 1 MG TABLET 2 MG PO (14:22)
[2022-07-09 14:34] LABS: Glucose, Whole Blood 262 mg/dL (60-115)
[2022-07-09] MEDS: metFORMIN HCl 1,000 MG TABLET 1000 MG PO (15:12)
[2022-07-09] MEDS: Phenytoin Sodium Extended 100 MG CAPSULE 300 MG PO (15:13)
[2022-07-09] MEDS: Torsemide 20 MG TABLET 40 MG PO (15:13)
--- NOTE | 2022-07-09 16:04 | MHC.CM.ED ---
PT AWAITING STR PLACEMENT [facility] IS FOLLOWING REFERRAL EXPANDED
--- NOTE | 2022-07-09 16:38 | PC.NURSE ---
pt transferred to EMS @ 1630, pt a&ox3, wheel chair bound, O2 4L @ baseline, pt pending str placement. case management following.
[2022-07-09 17:37] LABS: Glucose, Whole Blood 264 mg/dL (60-115)
--- NOTE | 2022-07-09 17:42 | PC.NURSE ---
no sliding scale in MAR for TID insulin, pharmacy notified, will contact provider.
[2022-07-09] MEDS: Insulin Lispro 100 UNIT/ML 3 ML VIAL SUBCUT (17:56)
--- NOTE | 2022-07-09 18:07 | PC.NURSE ---
pt reporting 10/10 lower back pain, medicated per provider order. reporting burning w urination, UA sent to lab.
[2022-07-09 18:16] LABS: Appearance Urine Cloudy; Color Urine Yellow; Glucose Urine UA >=1000 mg/dL (Negative); Leukocyte Esterase Urine Large (3+) (Negative); Nitrite Urine Negative (Negative); PH 6.5 (5.0-9.0); Specific Gravity - Urine 1.015 (1.005-1.025); UMIC TRIGGER UACC YES; Urine Blood Large (3+) (Negative); Urine Ketones 15 mg/dL (Negative); Urine Protein 30 (1+) mg/dL (Neg-Trace)
[2022-07-09 18:19] LABS: Bacteria Urine Trace (None Seen); Hyaline Casts Urine 0-2 /LPF (0-2); Squamous Epithelial Cell Urine 0-2 /HPF (0-2); UACC Culture Trigger YES; WBC Urine >50 /HPF (0-5)
[2022-07-09 21:11] LABS: Glucose, Whole Blood 177 mg/dL (60-115)
[2022-07-09] MEDS: Apixaban 5 MG TABLET PO (21:51)
[2022-07-09] MEDS: DULoxetine HCl 60 MG CAPSULE.DR PO (21:51)
[2022-07-09] MEDS: Metoprolol Succinate ER 25 MG TAB.ER.24H 75 MG PO (21:51)
[2022-07-09] MEDS: traZODone HCL 100 MG TABLET PO (21:51)
[2022-07-09] MEDS: Phenytoin Sodium Extended 100 MG CAPSULE 400 MG PO (21:51)
[2022-07-09] MEDS: Insulin Glargine,Hum.rec.anlog 100 UNIT/ML 10 ML VIAL 20 UNIT SUBCUT (21:53)
[2022-07-09] MEDS: QUEtiapine Fumarate 200 MG TABLET PO (22:13)
--- NOTE | 2022-07-09 22:22 | PC.NURSE ---
RN-RN report given to ED Overflow, plan for RNs to follow up w ED providers for abx if needed for poss UTI - pt is continuing to report burning with urination, but provider wanted to wait for culture results prior to medication due to high number of allergies, overflow RN aware of plan.
[2022-07-10] MEDS: oxyCODONE HCl Immed Release 5 MG TABLET PO ×3 (00:50→18:38)
[2022-07-10 00:51] VITALS: BP 107/70; PULSE 100; RESP 20; TEMP 36.5; O2SAT 99
[2022-07-10] MEDS: Gabapentin 400 MG CAPSULE PO ×5 (06:39→20:13)
[2022-07-10] MEDS: Omeprazole 20 MG CAPSULE.DR PO (06:39)
[2022-07-10 07:15] LABS: Glucose, Whole Blood 224 mg/dL (60-115)
[2022-07-10] MEDS: Insulin Lispro 100 UNIT/ML 3 ML VIAL SUBCUT ×2 (07:31→18:32)
[2022-07-10 09:05] VITALS: BP 103/57; PULSE 106; RESP 18; TEMP 37.4; O2SAT 98
[2022-07-10] MEDS: Isosorbide Mononitrate 60 MG TAB.ER.24H PO (09:10)
[2022-07-10] MEDS: Phenytoin Sodium Extended 100 MG CAPSULE 300 MG PO (09:11)
[2022-07-10] MEDS: Torsemide 20 MG TABLET 40 MG PO (09:11)
[2022-07-10] MEDS: Cyanocobalamin (Vitamin B-12) 1,000 MCG TABLET 1000 MCG PO (09:12)
[2022-07-10] MEDS: Digoxin 0.125 MG TABLET PO (09:12)
[2022-07-10] MEDS: Atorvastatin Calcium 80 MG TABLET PO (09:13)
[2022-07-10] MEDS: Cholecalciferol (Vitamin D3) 25 MCG TABLET PO (09:13)
[2022-07-10] MEDS: Empagliflozin 10 MG TABLET PO (09:13)
[2022-07-10] MEDS: metFORMIN HCl 1,000 MG TABLET 1000 MG PO (09:13)
[2022-07-10] MEDS: QUEtiapine Fumarate 200 MG TABLET PO ×2 (09:13→20:12)
[2022-07-10] MEDS: DULoxetine HCl 30 MG CAPSULE.DR PO (09:13)
[2022-07-10] MEDS: Apixaban 5 MG TABLET PO ×2 (09:13→20:14)
[2022-07-10] MEDS: Metoprolol Succinate ER 25 MG TAB.ER.24H 75 MG PO ×2 (09:14→20:11)
[2022-07-10] MEDS: LORazepam 1 MG TABLET 2 MG PO ×2 (10:15→18:38)
[2022-07-10 13:04] LABS: Glucose, Whole Blood 196 mg/dL (60-115)
[2022-07-10] MEDS: Nitrofurantoin Monohyd/M-Cryst 100 MG CAPSULE PO ×2 (13:59→20:10)
--- NOTE | 2022-07-10 16:02 | MHC.EDTECH ---
this pct assumed care of pt at 1500 ,pt rang call womack because he needed help to use the urinal ,but did not void .
[2022-07-10 18:28] LABS: Glucose, Whole Blood 200 mg/dL (60-115)
--- NOTE | 2022-07-10 19:45 | MHC.EDTECH ---
pt ate 100 % of dinner ,drank 480 ml fluids .
[2022-07-10 20:04] VITALS: BP 117/56; PULSE 100; RESP 18; TEMP 36.6; O2SAT 99
--- NOTE | 2022-07-10 20:09 | PC.NURSE ---
Report received from RN Lisbet pt alert and oriented resting in bed breathing equally unlabored no signs of acute distress notice
[2022-07-10] MEDS: Phenytoin Sodium Extended 100 MG CAPSULE 400 MG PO (20:13)
[2022-07-10] MEDS: DULoxetine HCl 60 MG CAPSULE.DR PO (20:13)
[2022-07-10] MEDS: traZODone HCL 100 MG TABLET PO (20:14)
[2022-07-10] MEDS: Insulin Glargine,Hum.rec.anlog 100 UNIT/ML 10 ML VIAL 20 UNIT SUBCUT (20:14)
[2022-07-10] MEDS: Acetaminophen 325 MG TABLET 650 MG PO (20:15)
--- NOTE | 2022-07-10 20:47 | PC.NURSE ---
Addendum entered by Mariama Duggan RN 07/11/22 06:58: Report given to GERA Smith Original Note: Report received from GERA Frausto pt alert and oriented resting in bed breathing equally unlabored no signs of acute distress notice
--- NOTE | 2022-07-10 22:30 | MHC.EDTECH ---
pt rang call womack asked for 2 tuna fish sandwich and 2 cranberry juice .
[2022-07-11] VITALS (8 sets, daily range): BP systolic 68–113; BP diastolic 51–67; PULSE 74–101; RESP 16–20; TEMP 36.1–36.7; O2SAT 95–100
[2022-07-11] MEDS: Omeprazole 20 MG CAPSULE.DR PO (06:36)
[2022-07-11] MEDS: Gabapentin 400 MG CAPSULE PO ×5 (06:36→21:15)
[2022-07-11 07:07] LABS: Glucose, Whole Blood 219 mg/dL (60-115)
[2022-07-11] MEDS: Insulin Lispro 100 UNIT/ML 3 ML VIAL SUBCUT ×3 (07:13→18:11)
--- NOTE | 2022-07-11 07:18 | PC.NURSE ---
on initial interaction with pt, he c/o really bad pain and anxiety . Pt medicated to MAR.
[2022-07-11] MEDS: oxyCODONE HCl Immed Release 5 MG TABLET PO ×3 (07:22→21:15)
[2022-07-11] MEDS: LORazepam 1 MG TABLET 2 MG PO ×2 (07:22→18:17)
--- NOTE | 2022-07-11 07:39 | PC.NURSE ---
meal tray provided
[2022-07-11] MEDS: DULoxetine HCl 30 MG CAPSULE.DR PO (09:44)
[2022-07-11] MEDS: metFORMIN HCl 1,000 MG TABLET 1000 MG PO (09:44)
[2022-07-11] MEDS: Nitrofurantoin Monohyd/M-Cryst 100 MG CAPSULE PO ×2 (09:45→21:14)
[2022-07-11] MEDS: Torsemide 20 MG TABLET 40 MG PO (09:45)
[2022-07-11] MEDS: QUEtiapine Fumarate 200 MG TABLET PO ×2 (09:45→21:54)
[2022-07-11] MEDS: Phenytoin Sodium Extended 100 MG CAPSULE 300 MG PO (09:45)
[2022-07-11] MEDS: Metoprolol Succinate ER 25 MG TAB.ER.24H 75 MG PO ×2 (09:46→21:15)
[2022-07-11] MEDS: Cyanocobalamin (Vitamin B-12) 1,000 MCG TABLET 1000 MCG PO (09:46)
[2022-07-11] MEDS: Apixaban 5 MG TABLET PO ×2 (09:46→21:15)
[2022-07-11] MEDS: Atorvastatin Calcium 80 MG TABLET PO (09:46)
[2022-07-11] MEDS: Isosorbide Mononitrate 60 MG TAB.ER.24H PO (09:46)
[2022-07-11] MEDS: Acetaminophen 325 MG TABLET 650 MG PO ×2 (09:46→21:15)
[2022-07-11] MEDS: Empagliflozin 10 MG TABLET PO (09:47)
[2022-07-11] MEDS: Cholecalciferol (Vitamin D3) 25 MCG TABLET PO (09:47)
--- NOTE | 2022-07-11 10:28 | MHC.CM.ED ---
Patient remains in ER overflow. In the past, patient has been difficult to place. Referral has already been broadcasted within 50 miles of patient's home. [facility] anticipates they will have a bed open this week. Continue to monitor for d/c needs.
--- NOTE | 2022-07-11 11:50 | PC.NURSE ---
Insulin/ POC held at this time until meal tray arrives
[2022-07-11 12:19] LABS: Glucose, Whole Blood 183 mg/dL (60-115)
--- NOTE | 2022-07-11 13:49 | PC.NURSE ---
Pt c/o severe lower back pain more than a 10
--- NOTE | 2022-07-11 13:51 | PC.NURSE ---
Pt provided with lunch
--- NOTE | 2022-07-11 14:40 | PC.NURSE ---
LINENS CHANGED. PT IN NAD AT THIS TIME.
--- NOTE | 2022-07-11 17:21 | PC.NURSE ---
holding poc/ insulin administration until meal trays arrive
[2022-07-11 17:57] LABS: Glucose, Whole Blood 196 mg/dL (60-115)
--- NOTE | 2022-07-11 18:13 | PC.NURSE ---
Pt requesting Ativan at this time.
--- NOTE | 2022-07-11 18:22 | PC.NURSE ---
Pt used urinal independently
--- NOTE | 2022-07-11 19:42 | PC.NURSE ---
report received from Miguelina RN - assumed care of patient at 1900. patient requesting pain meds but per previous RN, BP's have been soft especially after pain med and anxiety med administration. previous RN recommended maybe holding some blood pressure meds that are due in morning time. will obtain BP before administering patient pain med.
--- NOTE | 2022-07-11 20:15 | PC.NURSE ---
patients blood pressure 68/53 R arm, 87/67 and 88/67 L arm. checked 3 times. called over to MD Noel in main ED. patient has uti (on macrobid) and blood pressures becoming softer and softer, patient has CHF so cannot be resuscitated too many iv fluids, MD Noel recommending patient be brought over to main ED for further evaluation and possible iv antibiotics and admission. ED charge nurse aware - transporter Paul coming to mixing picker tender patient from overflow to bring to main ED. patient alert and oriented, speaking clear full sentences, asymptomatic - denies dizziness or lightheadedness
[2022-07-11] MEDS: Phenytoin Sodium Extended 100 MG CAPSULE 400 MG PO (21:14)
[2022-07-11] MEDS: Insulin Glargine,Hum.rec.anlog 100 UNIT/ML 10 ML VIAL 20 UNIT SUBCUT (21:14)
[2022-07-11] MEDS: DULoxetine HCl 60 MG CAPSULE.DR PO (21:15)
[2022-07-11] MEDS: traZODone HCL 100 MG TABLET PO (21:15)
[2022-07-11 21:54] LABS: MANUAL DIFF FLAG NO
[2022-07-11] MEDS: Fluticasone Propionate Nasal 16 GM SPRAY 1 SPRAY NOSTRIL-B (21:54)
[2022-07-11] MEDS: cefTRIAXone sodium 1 GM in 0.9 % Sodium Chloride 50 ML IV (21:54)
[2022-07-11 21:58] LABS: Basophils Percent Auto 0.1 % (0-2); Eosinophils Absolute Auto 0.1 X10*3/uL (0.0-0.4); Hematocrit 38.2 % (42.0-52.0); Hemoglobin 10.7 g/dl (14.0-18.0); Imm Gran Abs Auto 0.02 X10*3/uL (0.00-0.03); Imm Gran Pct Auto 0.2 % (0.0-0.4); Lymphocytes Absolute Auto 0.9 X10*3/uL (1.2-4.9); Lymphocytes Percent Auto 9.4 % (20-40); Mean Corpuscular Hemoglobin 21.6 pg (27.0-33.0); Mean Platelet Volume 10.9 fL (9.4-12.4); Monocytes Absolute Auto 0.5 X10*3/uL (0.1-1.2); Monocytes Percent Auto 5.9 % (2-11); Neutrophils Absolute Auto 7.5 x10*3/uL (2.0-8.3); Neutrophils Percent Auto 83.4 % (45-73); Platelet Count 271 X10*3/uL (160-400); Red Blood Count 4.96 X10*6/uL (4.60-5.80); Red Cell Distribution Width 19.1 % (11.0-16.0)
[2022-07-11 22:03] LABS: Lactic Acid 2.2 mmol/L (0.5-2.0)
[2022-07-11 22:04] LABS: Alanine Aminotransferase 7 U/L (0-40); Albumin Level 3.4 g/dL (3.5-5.0); Alkaline Phosphatase 104 U/L (39-117); Anion Gap 12 (12-20); Aspartate Amino Transferase 10 U/L (5-37); Bilirubin Total 0.4 mg/dL (0.0-1.0); Blood Urea Nitrogen 15 mg/dL (9-16); Calcium 8.9 mg/dL (8.4-10.2); Carbon Dioxide 37 mmol/L (22-29); Chloride 89 mmol/L (96-108); Creatinine Clr Calc Pharmacy 122.6; Estimated Glomerular Filt Rate > 60; Glucose Random 211 mg/dL (60-115); Potassium 3.4 mmol/L (3.3-5.1); Sodium 135 mmol/L (135-145); Total Protein 6.4 g/dL (6.5-8.0)
[2022-07-11] MEDS: 0.9 % Sodium Chloride 1,000 ML 999 ML IV (22:14)
--- NOTE | 2022-07-11 23:43 | P.HPHOSP_ITS ---
History of Present Illness Date of Service: 07/11/22 Chief Complaint: STaph aureus This is a 62-year-old male with pertinent history of atrial fibrillation on Eliquis, insulin-dependent diabetes mellitus, mood disorder, morbid obesity, chronic pain with opioid use, essential hypertension who initially presented on 07/08 after mechanical fall and was kept as physician observation in the ER. Hospital Medicine consulted as patient's urine culture grew Staph aureus. Patient states he is mostly mobile and uses a wheelchair to ambulate. He presented to the ER after a mechanical fall after he tripped while trying to get out of his wheelchair in the bathroom. In the ER, urine culture grew Staph aureus and lactic acid was 2.2. Blood pressure noted to be soft with systolic in the 90s and Hospital Medicine group consulted for further evaluation and management. Patient does complain of dysuria at the time of my evaluation but has no other complaints. Review of Systems Constitutional: Constitutional: Reports no additional constitutional complaints Cardiovascular: Cardiovascular: Reports no additional cardiovascular complaints Respiratory: Respiratory: Reports no additional respiratory complaints Gastrointestinal: Gastrointestinal: Reports no additional gastrointestinal complaints Genitourinary: Genitourinary: Reports dysuria [facility] Medical History Anxiety Arthritis Asthma Atrial fibrillation with rapid ventricular response Coronary artery disease Diabetes mellitus, type 2 Fall Hypertension Multifactorial gait disorder Obesity PTSD (post-traumatic stress disorder) TIA (transient ischemic attack) Transient ischemic attack (TIA) Weakness Social History Household Members: None Housing: Apartment Do you presently have visiting nurse or other home services: Yes Alcohol intake: former Patient Tobacco Use Status: Never used Tobacco Smoked in Last 30 Days: No Second Hand Smoke Exposure: No Use of substances other than those prescribed or required for medical reasons: No Advance Directives: Yes Advance Directives on File: Yes Advance Directives Date on File: 04/14/22 Nutrition Risks: No Nutritional Risk service: No Current occupational status: disabled Meds Allergies Allergy/AdvReac Type Severity Reaction Status Date / Time aspirin Allergy Severe OCCASIONAL Verified 04/08/22 14:18 RASH / TONGUE SWELLING, Hives, throat swellig bee pollen [BEE STINGS] Allergy Severe ANAPHYLAXIS Verified 04/08/22 14:18 Penicillins Allergy Severe ANAPHYLAXIS Verified 04/08/22 14:18 povidone-iodine [Betadine] Allergy Severe Redness of Verified 04/08/22 14:18 Skin soap [Betadine] Allergy Severe Redness of Verified 04/08/22 14:18 Skin spider venom [SPIDER BITES] Allergy Severe Hives Verified 04/08/22 14:18 amoxicillin Allergy Intermediate Hives Verified 04/08/22 14:18 clindamycin Allergy Mild RASH Verified 04/08/22 14:18 latex [Latex] Allergy Mild RASH Verified 04/08/22 14:18 shrimp Allergy Hives Verified 06/21/22 11:48 bupropion [From WELLBUTRIN] AdvReac Severe SEIZURES Verified 04/08/22 14:18 adhesive tape AdvReac Mild Rash Verified 04/14/22 15:55 Active Medications: Current Medications Acetaminophen (Acetaminophen 325 Mg Tablet) 650 mg PO BID [facility] [place] Last Admin: 07/11/22 21:15 Dose: 650 mg Acetaminophen (Acetaminophen 325 Mg Tablet) 650 mg PO Q6H PRN PRN Reason: Pain, Mild (Pain Scale 1-3) Albuterol Sulfate (Albuterol Sulfate 90 Mcg 8 Gm Inhaler) 2 puff INHALE Q4H PRN PRN Reason: Shortness Of Breath Apixaban (Apixaban 5 Mg Tablet) 5 mg PO BID [facility] [place] Last Admin: 07/11/22 21:15 Dose: 5 mg Atorvastatin Calcium (Atorvastatin Calcium 80 Mg Tablet) 80 mg PO DAILY [facility] [place] Last Admin: 07/11/22 09:46 Dose: 80 mg Cyanocobalamin (Cyanocobalamin (Vitamin B-12) 1,000 Mcg Tablet) 1,000 mcg PO DAILY [facility] [place] Last Admin: 07/11/22 09:46 Dose: 1,000 mcg Dextrose (Dextrose 50 % 25 Gm/50 Ml Syringe) 25 gm IVPUSH Q15M PRN; Protocol PRN Reason: per Hypoglycemia Standing Ord. Digoxin (Digoxin 0.125 Mg Tablet) 0.125 mg PO Q48H [facility] [place] Last Admin: 07/10/22 09:12 Dose: 0.125 mg Duloxetine HCl (Duloxetine Hcl 30 Mg Capsule.) 30 mg PO DAILY [facility] [place] Last Admin: 07/11/22 09:44 Dose: 30 mg Duloxetine HCl (Duloxetine Hcl 60 Mg Capsule.) 60 mg PO BEDTIME [facility] [place] Last Admin: 07/11/22 21:15 Dose: 60 mg Fluticasone Propionate (Fluticasone Propionate Nasal 16 Gm [place]) 1 spray NOSTRIL-B BID [facility] [place] Last Admin: 07/11/22 21:54 Dose: 1 spray Gabapentin (Gabapentin 400 Mg Capsule) 400 mg PO 5XD [facility] [place] Last Admin: 07/11/22 21:15 Dose: 400 mg Glucose (Glucose Gel 15 Gm Gel..Gram.) 15 gm PO Q15M PRN; Protocol PRN Reason: per Hypoglycemia Standing Ord. Guaifenesin (Guaifenesin 100 Mg/5 Ml Liquid) 10 ml PO Q6H PRN PRN Reason: Cough Hydroxyzine HCl (Hydroxyzine Hcl 25 Mg Tablet) 25 mg PO TID PRN PRN Reason: Anxiety Insulin Glargine (Insulin Glargine,Hum.Rec.Anlog 100 Unit/Ml 10 Ml Vial) 20 unit SUBCUT BEDTIME [facility] [place] Last Admin: 07/11/22 21:14 Dose: 20 unit Insulin Human Lispro (Insulin Lispro 100 Unit/Ml 3 Ml Vial) 0 unit SUBCUT TIDAC [facility] [place]; Protocol Last Admin: 07/11/22 18:11 Dose: 2 unit Insulin Human Lispro (Insulin Lispro 100 Unit/Ml 3 Ml Vial) 0 unit SUBCUT QIDACHS [facility] [place]; Protocol Lorazepam (Lorazepam 1 Mg Tablet) 2 mg PO TID PRN PRN Reason: Anxiety Last Admin: 07/11/22 18:17 Dose: 2 mg Melatonin (Melatonin 3 Mg Tablet) 6 mg PO BEDTIME PRN PRN Reason: Insomnia Nitrofurantoin Macrocrystals (Nitrofurantoin Monohyd/M-Cryst 100 Mg Capsule) 100 mg PO BID [facility] [place] Stop: 07/17/22 13:29 Last Admin: 07/11/22 21:14 Dose: 100 mg Omeprazole (Omeprazole 20 Mg Capsule.Dr) 20 mg PO DAILY@0630 [facility] [place] Last Admin: 07/11/22 06:36 Dose: 20 mg Ondansetron HCl (Ondansetron Hcl 4 Mg/2 Ml Vial) 4 mg IVPUSH Q8H PRN PRN Reason: Nausea and Vomiting Oxycodone HCl (Oxycodone Hcl Immed Release 5 Mg Tablet) 5 mg PO Q6H PRN PRN Reason: Pain, Moderate (Pain Scale 4-6 Last Admin: 07/11/22 21:15 Dose: 5 mg Pharmacy Consult (Consult Rx Perform Med Rec) 1 each MISCELLANE ONCE PRN PRN Reason: Consult order Pharmacy Consult (Consult Rx Vancomycin Dosing) 1 each MISCELLANE DAILY PRN PRN Reason: Consult order Phenytoin Sodium (Phenytoin Sodium Extended 100 Mg Capsule) 300 mg PO DAILY [facility] [place] Last Admin: 07/11/22 09:45 Dose: 300 mg Phenytoin Sodium (Phenytoin Sodium Extended 100 Mg Capsule) 400 mg PO BEDTIME [facility] [place] Last Admin: 07/11/22 21:14 Dose: 400 mg Quetiapine Fumarate (Quetiapine Fumarate 100 Mg Tablet) 100 mg PO BEDTIME PRN PRN Reason: Insomnia Quetiapine Fumarate (Quetiapine Fumarate 200 Mg Tablet) 200 mg PO BID [facility] [place] Last Admin: 07/11/22 21:54 Dose: 200 mg Sodium Chloride (0.9 % Sodium Chloride Flush 3 Ml Syringe) 3 ml IVFLUSH QSHIFT [facility] [place] Torsemide (Torsemide 20 Mg Tablet) 40 mg PO DAILY [facility] [place]; Protocol Last Admin: 07/11/22 09:45 Dose: 40 mg Trazodone HCl (Trazodone Hcl 100 Mg Tablet) 100 mg PO BEDTIME [facility] [place] Last Admin: 07/11/22 21:15 Dose: 100 mg Vitamin D (Cholecalciferol (Vitamin D3) 25 Mcg Tablet) 25 mcg PO DAILY [facility] [place] Last Admin: 07/11/22 09:47 Dose: 25 mcg Home Medications Medication Instructions Recorded Confirmed Last Taken Type apixaban 5 mg tablet (Eliquis) 1 tab PO BID 07/08/22 07/08/22 Unknown History empagliflozin 10 mg tablet 1 tab PO DAILY 07/08/22 07/08/22 Unknown History (Jardiance) hydroxyzine HCl 25 mg tablet 1 tab PO TID PRN Anxiety 07/08/22 07/08/22 Unknown History isosorbide mononitrate 60 mg 1 tab PO DAILY 07/08/22 07/08/22 Unknown History tablet,extended release 24 hr lorazepam 2 mg tablet 1 tab PO TID PRN Anxiety 07/08/22 07/08/22 Unknown History metformin 1,000 mg tablet 1 tab PO DAILY 07/08/22 07/08/22 Unknown History oxycodone 5 mg tablet 1 tab PO BID PRN Pain 07/08/22 07/08/22 Unknown History pantoprazole 40 mg tablet,delayed 1 tab PO DAILY@0630 07/08/22 07/09/22 Unknown History release phenytoin sodium extended 100 mg 300 mg PO DAILY 07/08/22 07/09/22 Unknown History capsule trazodone 50 mg tablet 2 tab PO BEDTIME 07/08/22 07/08/22 Unknown History acetaminophen 500 mg tablet 1,000 mg PO BID PRN Pain 07/09/22 07/09/22 Unknown History albuterol sulfate 90 mcg/actuation 2 puff inhalation Q4-6H PRN 07/09/22 07/09/22 Unknown History aerosol inhaler (ProAir HFA) Shortness Of Breath atorvastatin 80 mg tablet 1 tab PO DAILY 07/09/22 07/09/22 Unknown History cholecalciferol (vitamin D3) 25 25 mcg PO DAILY 07/09/22 07/09/22 Unknown History mcg (1,000 unit) capsule (Vitamin D3) cyanocobalamin (vitamin B-12) 1,000 mcg PO DAILY 07/09/22 07/09/22 Unknown Hi story 1,000 mcg tablet digoxin 125 mcg (0.125 mg) tablet 1 tab PO Q2D 07/09/22 07/09/22 Unknown History duloxetine 30 mg capsule,delayed 30 mg PO DAILY 07/09/22 07/09/22 Unknown History release duloxetine 30 mg capsule,delayed 60 mg PO BEDTIME 07/09/22 07/09/22 Unknown History release fluticasone propionate 50 1 spray intranasal BID 07/09/22 07/09/22 Unknown History mcg/actuation nasal spray,suspension gabapentin 400 mg capsule 1 cap PO 5XD 07/09/22 07/09/22 Unknown History guaifenesin 100 mg/5 mL oral liquid 200 mg PO Q6H PRN Cough 07/09/22 07/09/22 U nknown History insulin glargine 100 unit/mL (3 20 unit subcut BEDTIME 07/09/22 07/09/22 Unknown History mL) subcutaneous pen (Lantus Solostar U-100 Insulin) insulin lispro 100 unit/mL 2 - 10 unit subcut TIDAC 07/09/22 07/09/22 Unknown History subcutaneous pen metoprolol succinate 25 mg 3 tab PO BID 07/09/22 07/09/22 Unknown History tablet,extended release 24 hr phenytoin sodium extended 100 mg 400 mg PO BEDTIME 07/09/22 07/09/22 Unknown History capsule quetiapine 100 mg tablet 1 tab PO BEDTIME PRN Insomnia 07/09/22 07/09/22 Unknown History quetiapine 200 mg tablet 1 tab PO BID 07/09/22 07/09/22 Unknown History torsemide 20 mg tablet 2 tab PO DAILY 07/09/22 07/09/22 Unknown History Physical Exam Vital Signs and Narrative: Vital Signs: Last Vital Signs Temp 97.3 F 07/11/22 23:26 Pulse 101 H 07/11/22 23:26 Resp 20 07/11/22 23:26 BP 91/53 L 07/11/22 23:26 Pulse Ox 98 07/11/22 23:26 O2 Del Method 07/11/22 23:26 O2 Flow Rate 4 07/11/22 23:26 Oxygen Flow Rate 4 07/08/22 02:29 BMI result Body Mass Index 47.5 Obese Middle-aged male lying in bed in no distress Neck supple, no JVD Irregularly irregular, S1-S2 heard Decreased breath sound at bases Abdomen distended, soft nontender, no guarding, no rigidity Patient is awake, alert and oriented to self, place, time and person ; no focal motor deficit Psych: Normal mood No pedal edema Results Labs 07/11/22 21:38 07/11/22 21:39 Labs: Laboratory Results - last 24 hr 07/11/22 07/11/22 07/11/22 07:04 12:13 17:53 MCV MCH MCHC RDW Plt Count MPV Immature Gran % (Auto) Neut % (Auto) Lymph % (Auto) [place] % (Auto) Eos % (Auto) Baso % (Auto) Lymph # (Auto) [place] # (Auto) Eos # (Auto) Baso # (Auto) Abs Immat Gran (auto) Absolute Neuts (auto) Absolute Nucleated RBC Nucleated RBC % (auto) Anion Gap Estim Creat Clear Calc Estimated GFR POC Glucose 219 H 183 H 196 H Random Glucose Lactic Acid Calcium Total Bilirubin AST ALT Alkaline Phosphatase Total Protein Albumin 07/11/22 07/11/22 07/11/22 21:38 21:38 21:39 MCV 77.0 L MCH 21.6 L MCHC 28.0 L RDW 19.1 H Plt Count 271 MPV 10.9 Immature Gran % (Auto) 0.2 Neut % (Auto) 83.4 H Lymph % (Auto) 9.4 L [place] % (Auto) 5.9 Eos % (Auto) 1.0 Baso % (Auto) 0.1 Lymph # (Auto) 0.9 L [place] # (Auto) 0.5 Eos # (Auto) 0.1 Baso # (Auto) 0.0 Abs Immat Gran (auto) 0.02 Absolute Neuts (auto) 7.5 Absolute Nucleated RBC 0.000 Nucleated RBC % (auto) 0.0 Anion Gap 12 Estim Creat Clear Calc 122.6 Estimated GFR > 60 POC Glucose Random Glucose 211 H Lactic Acid 2.2 H* Calcium 8.9 Total Bilirubin 0.4 AST 10 ALT 7 Alkaline Phosphatase 104 Total Protein 6.4 L Albumin 3.4 L Assessment and Plan (1) UTI (urinary tract infection): Status: Acute Plan This is a 62-year-old male with pertinent history of atrial fibrillation on El iquis, insulin-dependent diabetes mellitus, mood disorder, morbid obesity, chronic pain with opioid use, who initially presented on 07/08 after mechanical fall and was kept as physician observation in the ER. Hospital Medicine consulted as patient's urine culture grew Staph aureus. #. UTI: Staph aureus bacteriuria noted. Will admit patient and initiate IV vancomycin. Consulting ID, appreciate recommendations. Blood cultures pending #. Sepsis (tachycardic and tachypneic) in the setting of above. Lactic acid and blood cultures obtained. Antibiotics as above #. Acute lactic acidosis due to sepsis and metformin use: Resuscitated with IV crystalloids #. Essential hypertension: Hold antihypertensives in the setting of sepsis and hypotension #. 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 Continue home basal regimen. Initiating Accu-Cheks with sliding scale insulin before meals and at bedtime. Continue gabapentin #. Paroxysmal atrial fibrillation on Eliquis. Holding rate-controlling agents due to hypotension #. Chronic hypoxemic respiratory failure due to Asthma: Not on home inhaler. Continue home supplemental oxygen. No exacerbation on admission, Siria p.r.n. #. Seizure disorder: On phenytoin #. Chronic microcytic anemia: Obtaining iron studies #. Mood disorder: Continue home mood stabilizer #. Consulting clinical social work therapist as patient states he is unable to take care of himself at home. Will need placement DVT prophylaxis: On Eliquis Cardiac diet Full code Admit as inpatient and will require two night minimum hospital stay for IV antibiotics Time Spent With Patient Time: Total time managing care of this patient today ____ minutes. Quality Stroke Does the patient have a stroke diagnosis?: No VTE Prior VTE?: No VTE Risk Level:: Medical - moderate - high VTE Device Contraindication: Treatment Not Indicated VTE Drug Contraindication: N/A - Med Ordered
[2022-07-11 23:44] LABS: Reflex Lactate? Lactic Acid Added
[2022-07-12] MEDS: 0.9 % Sodium Chloride 1,000 ML 999 ML IV (00:08)
[2022-07-12 00:27] LABS: ~Lactic Acid-LAB USE ONLY 1.5 mmol/L (0.5-2.0)
[2022-07-12 00:57] LABS: Iron 34 mcg/dL (45-160); Percent Iron Saturation 13 % (15-50); Total Iron Binding Capacity 252 mcg/dL (228-428); Unsaturated Iron Binding 218 ug/dL
[2022-07-12 02:35] LABS: MANUAL DIFF FLAG NO
[2022-07-12 02:42] LABS: Basophils Percent Auto 0.1 % (0-2); Eosinophils Absolute Auto 0.1 X10*3/uL (0.0-0.4); Hematocrit 38.6 % (42.0-52.0); Hemoglobin 10.7 g/dl (14.0-18.0); Imm Gran Abs Auto 0.02 X10*3/uL (0.00-0.03); Imm Gran Pct Auto 0.3 % (0.0-0.4); Lymphocytes Percent Auto 12.5 % (20-40); Mean Corpuscular HGB Conc 27.7 g/dl (31.0-36.0); Mean Corpuscular Hemoglobin 21.4 pg (27.0-33.0); Mean Platelet Volume 10.6 fL (9.4-12.4); Monocytes Absolute Auto 0.5 X10*3/uL (0.1-1.2); Monocytes Percent Auto 6.5 % (2-11); Neutrophils Absolute Auto 6.3 x10*3/uL (2.0-8.3); Neutrophils Percent Auto 79.6 % (45-73); Platelet Count 259 X10*3/uL (160-400); Red Blood Count 5.01 X10*6/uL (4.60-5.80); Red Cell Distribution Width 19.1 % (11.0-16.0); White Blood Count 7.9 X10*3/uL (4.8-10.8)
[2022-07-12 02:59] LABS: Anion Gap 17 (12-20); Blood Urea Nitrogen 14 mg/dL (9-16); Calcium 8.4 mg/dL (8.4-10.2); Carbon Dioxide 27 mmol/L (22-29); Chloride 95 mmol/L (96-108); Creatinine Clr Calc Pharmacy 127.5; Estimated Glomerular Filt Rate > 60; Glucose Random 174 mg/dL (60-115); Potassium 3.3 mmol/L (3.3-5.1); Sodium 136 mmol/L (135-145)
--- NOTE | 2022-07-12 03:17 | PC.NURSE ---
RN to RN report given to GERA Rivera. Pt being transferred to room 354 and aware of plan of care.
[2022-07-12 04:00] VITALS: BP 107/53; PULSE 104; RESP 18; TEMP 36.5; O2SAT 96
[2022-07-12] MEDS: oxyCODONE HCl Immed Release 5 MG TABLET PO ×3 (04:13→18:15)
[2022-07-12] MEDS: Omeprazole 20 MG CAPSULE.DR PO (06:23)
[2022-07-12] MEDS: Gabapentin 400 MG CAPSULE PO ×5 (06:23→20:09)
[2022-07-12 06:47] VITALS: BP 135/65; PULSE 102; RESP 18; TEMP 36.6; O2SAT 95
[2022-07-12 07:12] LABS: Glucose, Whole Blood 186 mg/dL (60-115)
[2022-07-12] MEDS: Acetaminophen 325 MG TABLET 650 MG PO ×3 (07:34→20:10)
[2022-07-12] MEDS: Cholecalciferol (Vitamin D3) 25 MCG TABLET PO (07:34)
[2022-07-12] MEDS: QUEtiapine Fumarate 200 MG TABLET PO ×2 (07:34→20:10)
[2022-07-12] MEDS: Phenytoin Sodium Extended 100 MG CAPSULE 300 MG PO (07:34)
[2022-07-12] MEDS: Digoxin 0.125 MG TABLET PO (07:34)
[2022-07-12] MEDS: LORazepam 1 MG TABLET 2 MG PO ×2 (07:34→16:39)
[2022-07-12] MEDS: Nitrofurantoin Monohyd/M-Cryst 100 MG CAPSULE PO (07:35)
[2022-07-12] MEDS: Apixaban 5 MG TABLET PO ×2 (07:35→20:09)
[2022-07-12] MEDS: DULoxetine HCl 30 MG CAPSULE.DR PO (07:35)
[2022-07-12] MEDS: Cyanocobalamin (Vitamin B-12) 1,000 MCG TABLET 1000 MCG PO (07:35)
[2022-07-12] MEDS: Insulin Lispro 100 UNIT/ML 3 ML VIAL SUBCUT ×4 (07:35→20:09)
[2022-07-12] MEDS: Atorvastatin Calcium 80 MG TABLET PO (07:35)
[2022-07-12] MEDS: 0.9 % Sodium Chloride Flush 3 ML SYRINGE IVFLUSH ×3 (07:36→20:08)
[2022-07-12] MEDS: Fluticasone Propionate Nasal 16 GM SPRAY 1 SPRAY NOSTRIL-B ×2 (07:44→20:20)
--- NOTE | 2022-07-12 09:41 | PHA.PROG ---
Admission Date/Time: July 11, 2022 23:40 Indication:BACTERMIA? STAPH IN URINE CULTURE Weight in k.365 kg Adjusted body weight in K.6 [place] body weight in Kg: Obesity Dosing Indication % IBW: Serum Creatinine - Last 168 Hours 07/08/22 07/11/22 07/12/22 05:32 21:39 02:31 Creatinine 0.88 1.03 0.99 Estimated CrCl and GFR - Last 168 Hours 07/08/22 07/11/22 07/12/22 05:32 21:39 02:31 Estim Creat Clear Calc 143.5 122.6 127.5 Estimated GFR > 60 > 60 > 60 Vancomycin Loading Dose: 2000 MG Current Vancomycin Dosing Regimen: 1500 MG Q12 Vancomycin Monitoring using AUC goal of 400 - 600 range with trough as surrogate marker:536 Date and Time for next Vancomycin Level to be drawn:07/12 @0800 Pharmacist Comments on Vancomycin Plan: Vancomycin dosing will take advantage of [employer] as a clinical decision support tool that uses Bayesian modeling to calculate individual patient's pharmacokinetic parameters and forecast the patient's drug concentration time course with the target goal AUC 24 range of 400 - 600 mg/L/hr.
--- NOTE | 2022-07-12 09:45 | MHC.CM.PN ---
Addendum entered by Hilda Hoskins RN 07/12/22 09:54: PT CONT'S TO HAVE NO BED OFFERS FOR STR, CM TO UPDATE AND RESEND REFERRAL. Original Note: EMR REVIEWED, CM MET W/PT WHO REPORTS HE HAS BEEN APPROVED FOR [facility] THAT [facility] [employer] [facility] HOWEVER HOWEVER WOULD STILL LIKE STR TO BUILD UP HIS STRENGTH PRIOR TO RETURNING HOME W/SERVICES OR TO [facility], CM WILL CONTACT [employer] TO CONFIRM PLAN.
--- NOTE | 2022-07-12 09:46 | HO.PM.IMPN ---
Subjective Subjective Date of Service: 07/12/22 Physical Exam Vital Signs: Vital Signs: Last Vital Signs Temp 98 F 07/12/22 06:47 Pulse 102 H 07/12/22 06:47 Resp 18 07/12/22 06:47 BP 135/65 07/12/22 06:47 Pulse Ox 95 07/12/22 06:47 O2 Del Method 07/12/22 06:47 O2 Flow Rate 4 07/12/22 06:47 Oxygen Flow Rate 4 07/08/22 02:29 BMI result Body Mass Index 47.5 Objective Data Active Medications Acetaminophen (Acetaminophen 325 Mg Tablet) 650 mg PO BID [facility] Last Admin: 07/12/22 07:34 Dose: 650 mg Documented By: JESÚS Acetaminophen (Acetaminophen 325 Mg Tablet) 650 mg PO Q6H PRN PRN Reason: Pain, Mild (Pain Scale 1-3) Albuterol Sulfate (Albuterol Sulfate 90 Mcg 8 Gm Inhaler) 2 puff INHALE Q4H PRN PRN Reason: Shortness Of Breath Apixaban (Apixaban 5 Mg Tablet) 5 mg PO BID [facility] Last Admin: 07/12/22 07:35 Dose: 5 mg Documented By: JESÚS Atorvastatin Calcium (Atorvastatin Calcium 80 Mg Tablet) 80 mg PO DAILY [facility] Last Admin: 07/12/22 07:35 Dose: 80 mg Documented By: JESÚS Cyanocobalamin (Cyanocobalamin (Vitamin B-12) 1,000 Mcg Tablet) 1,000 mcg PO DAILY [facility] Last Admin: 07/12/22 07:35 Dose: 1,000 mcg Documented By: JESÚS Dextrose (Dextrose 50 % 25 Gm/50 Ml Syringe) 25 gm IVPUSH Q15M PRN; Protocol PRN Reason: per Hypoglycemia Standing Ord. Digoxin (Digoxin 0.125 Mg Tablet) 0.125 mg PO Q48H [facility] Last Admin: 07/12/22 07:34 Dose: 0.125 mg Documented By: JESÚS Duloxetine HCl (Duloxetine Hcl 30 Mg Capsule.) 30 mg PO DAILY [facility] Last Admin: 07/12/22 07:35 Dose: 30 mg Documented By: JESÚS Duloxetine HCl (Duloxetine Hcl 60 Mg Capsule.) 60 mg PO BEDTIME [facility] Last Admin: 07/11/22 21:15 Dose: 60 mg Documented By: KEVIN Fluticasone Propionate (Fluticasone Propionate Nasal 16 Gm [place]) 1 spray NOSTRIL-B BID [facility] Last Admin: 07/12/22 07:44 Dose: 1 spray Documented By: JESÚS Gabapentin (Gabapentin 400 Mg Capsule) 400 mg PO 5XD [facility] Last Admin: 07/12/22 06:23 Dose: 400 mg Documented By: HEMAL Glucose (Glucose Gel 15 Gm Gel..Gram.) 15 gm PO Q15M PRN; Protocol PRN Reason: per Hypoglycemia Standing Ord. Guaifenesin (Guaifenesin 100 Mg/5 Ml Liquid) 10 ml PO Q6H PRN PRN Reason: Cough Hydroxyzine HCl (Hydroxyzine Hcl 25 Mg Tablet) 25 mg PO TID PRN PRN Reason: Anxiety Vancomycin HCl 1,500 mg/ (Sodium Chloride) 500 mls @ 333.333 mls/hr IV Q12H [facility] Insulin Glargine (Insulin Glargine,Hum.Rec.Anlog 100 Unit/Ml 10 Ml Vial) 20 unit SUBCUT BEDTIME [facility] Last Admin: 07/11/22 21:14 Dose: 20 unit Documented By: KEVIN Insulin Human Lispro (Insulin Lispro 100 Unit/Ml 3 Ml Vial) 0 unit SUBCUT QIDACHS [facility]; Protocol Last Admin: 07/12/22 07:35 Dose: 2 unit Documented By: JESÚS Lorazepam (Lorazepam 1 Mg Tablet) 2 mg PO TID PRN PRN Reason: Anxiety Last Admin: 07/12/22 07:34 Dose: 2 mg Documented By: JESÚS Melatonin (Melatonin 3 Mg Tablet) 6 mg PO BEDTIME PRN PRN Reason: Insomnia Nitrofurantoin Macrocrystals (Nitrofurantoin Monohyd/M-Cryst 100 Mg Capsule) 100 mg PO BID [facility] Stop: 07/17/22 13:29 Last Admin: 07/12/22 07:35 Dose: 100 mg Documented By: JESÚS Omeprazole (Omeprazole 20 Mg Capsule.) 20 mg PO DAILY@0630 [facility] Last Admin: 07/12/22 06:23 Dose: 20 mg Documented By: HEMAL Ondansetron HCl (Ondansetron Hcl 4 Mg/2 Ml Vial) 4 mg IVPUSH Q8H PRN PRN Reason: Nausea and Vomiting Oxycodone HCl (Oxycodone Hcl Immed Release 5 Mg Tablet) 5 mg PO Q6H PRN PRN Reason: Pain, Moderate (Pain Scale 4-6 Last Admin: 07/12/22 04:13 Dose: 5 mg Documented By: HEMAL Pharmacy Consult (Consult Rx Perform Med Rec) 1 each MISCELLANE ONCE PRN PRN Reason: Consult order Pharmacy Consult (Consult Rx Vancomycin Dosing) 1 each MISCELLANE DAILY PRN PRN Reason: Consult order Phenytoin Sodium (Phenytoin Sodium Extended 100 Mg Capsule) 300 mg PO DAILY [facility] Last Admin: 07/12/22 07:34 Dose: 300 mg Documented By: JESÚS Phenytoin Sodium (Phenytoin Sodium Extended 100 Mg Capsule) 400 mg PO BEDTIME [facility] Last Admin: 07/11/22 21:14 Dose: 400 mg Documented By: KEVIN Quetiapine Fumarate (Quetiapine Fumarate 100 Mg Tablet) 100 mg PO BEDTIME PRN PRN Reason: Insomnia Quetiapine Fumarate (Quetiapine Fumarate 200 Mg Tablet) 200 mg PO BID [facility] Last Admin: 07/12/22 07:34 Dose: 200 mg Documented By: JESÚS Sodium Chloride (0.9 % Sodium Chloride Flush 3 Ml Syringe) 3 ml IVFLUSH QSHIFT [facility] Last Admin: 07/12/22 07:36 Dose: 3 ml Documented By: JESÚS Trazodone HCl (Trazodone Hcl 100 Mg Tablet) 100 mg PO BEDTIME [facility] Last Admin: 07/11/22 21:15 Dose: 100 mg Documented By: KEVIN Vitamin D (Cholecalciferol (Vitamin D3) 25 Mcg Tablet) 25 mcg PO DAILY [facility] Last Admin: 07/12/22 07:34 Dose: 25 mcg Documented By: JESÚS Labs 07/12/22 02:31 07/12/22 02:31 Labs: Laboratory Results - last 24 hr 07/11/22 07/11/22 07/11/22 12:13 17:53 21:38 MCV 77.0 L MCH 21.6 L MCHC 28.0 L RDW 19.1 H Plt Count 271 MPV 10.9 Immature Gran % (Auto) 0.2 Neut % (Auto) 83.4 H Lymph % (Auto) 9.4 L [place] % (Auto) 5.9 Eos % (Auto) 1.0 Baso % (Auto) 0.1 Lymph # (Auto) 0.9 L [place] # (Auto) 0.5 Eos # (Auto) 0.1 Baso # (Auto) 0.0 Abs Immat Gran (auto) 0.02 Absolute Neuts (auto) 7.5 Absolute Nucleated RBC 0.000 Nucleated RBC % (auto) 0.0 Anion Gap Estim Creat Clear Calc Estimated GFR POC Glucose 183 H 196 H Random Glucose Lactic Acid Lactic Acid F/U @ 2Hr Calcium Iron TIBC % Saturation Unsat Iron Binding Total Bilirubin AST ALT Alkaline Phosphatase Total Protein Albumin 07/11/22 07/11/22 07/12/22 21:38 21:39 00:14 MCV MCH MCHC RDW Plt Count MPV Immature Gran % (Auto) Neut % (Auto) Lymph % (Auto) [place] % (Auto) Eos % (Auto) Baso % (Auto) Lymph # (Auto) [place] # (Auto) Eos # (Auto) Baso # (Auto) Abs Immat Gran (auto) Absolute Neuts (auto) Absolute Nucleated RBC Nucleated RBC % (auto) Anion Gap 12 Estim Creat Clear Calc 122.6 Estimated GFR > 60 POC Glucose Random Glucose 211 H Lactic Acid 2.2 H* Lactic Acid F/U @ 2Hr 1.5 Calcium 8.9 Iron 34 L TIBC 252 % Saturation 13 L Unsat Iron Binding 218 Total Bilirubin 0.4 AST 10 ALT 7 Alkaline Phosphatase 104 Total Protein 6.4 L Albumin 3.4 L 07/12/22 07/12/22 07/12/22 02:31 02:31 06:47 MCV 77.0 L MCH 21.4 L MCHC 27.7 L RDW 19.1 H Plt Count 259 MPV 10.6 Immature Gran % (Auto) 0.3 Neut % (Auto) 79.6 H Lymph % (Auto) 12.5 L [place] % (Auto) 6.5 Eos % (Auto) 1.0 Baso % (Auto) 0.1 Lymph # (Auto) 1.0 L [place] # (Auto) 0.5 Eos # (Auto) 0.1 Baso # (Auto) 0.0 Abs Immat Gran (auto) 0.02 Absolute Neuts (auto) 6.3 Absolute Nucleated RBC 0.000 Nucleated RBC % (auto) 0.0 Anion Gap 17 Estim Creat Clear Calc 127.5 Estimated GFR > 60 POC Glucose 186 H Random Glucose 174 H Lactic Acid Lactic Acid F/U @ 2Hr Calcium 8.4 Iron TIBC % Saturation Unsat Iron Binding Total Bilirubin AST ALT Alkaline Phosphatase Total Protein Albumin Microbiology Microbiology Results: Microbiology 07/09/22 18:22 Urine Culture - Final Urine clean catch - Urine drew top Staphylococcus aureus Assessment and Plan (1) UTI (urinary tract infection): Status: Acute Plan This is a 62-year-old male with pertinent history of atrial fibrillation on Eliquis, insulin-dependent diabetes mellitus, mood disorder, morbid obesity, chronic pain with opioid use, who initially presented on 07/08 after mechanical fall and was kept as physician observation in the ER.? Pt admitted to hospital service for further management of staph aureus UTI. #UTI -Staph aureus bacteriuria noted on urine culture. Pt symptomatic with dysuira and suprapubic pressure. -no sepsis -continue vancomycin -Appreciate ID input -Blood culture pending #Lactic acidosis -related to metformin use, not severe sepsis #Essential hypertension -Pt hypotensive in ED, bps still soft -Resume metoprolol. 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 Will need placement DVT prophylaxis: On Eliquis Diabetic/Cardiac diet Full code Pt requires ongoing inpt stay for management of staph UTI requiring IV antibiotics and expert consultation and will need placement as he is unable to care for himeself Time Spent With Patient Time: Total time managing care of this patient today ____ minutes. Quality Stroke Does the patient have a stroke diagnosis?: No VTE Prior VTE?: No VTE Risk Level:: Medical - moderate - high VTE Device Contraindication: Treatment Not Indicated VTE Drug Contraindication: N/A - Med Ordered
[2022-07-12 11:03] LABS: Glucose, Whole Blood 169 mg/dL (60-115)
[2022-07-12] MEDS: Ascorbic Acid 250 MG TABLET PO (11:15)
[2022-07-12] MEDS: Ferrous Sulfate 324 MG TABLET.DR PO (11:15)
[2022-07-12] MEDS: vancomycin HCL 1,500 MG in 0.9 % Sodium Chloride 500 ML 333.33 MG IV (11:16)
--- NOTE | 2022-07-12 14:13 | MHC.CLN ---
NUTRITION ADDED DIABETIC 2200 KCAL TO DIET ORDER FOR BLOOD SUGAR CONTROL.
[2022-07-12 14:41] VITALS: BP 142/74; PULSE 82; RESP 19; TEMP 36.6; O2SAT 95
--- NOTE | 2022-07-12 15:50 | P.CNID_ITS ---
History of Present Illness Data of Consult Service Date: 07/12/22 Requesting physician: Jennifer Rausch Primary Care Provider: Unknown Physician HPI Reason for consult: bacteriuria,staph aureus He presents after a mechanical fall He has complaints of dysuria mentioned. He had been started on macrobid in ER. He has no current complaints of dysuria. Review of Systems Review of Systems: Yes all other systems are reviewed and are negative PMFSH Past Medical History Medical History Anxiety Arthritis Asthma Atrial fibrillation with rapid ventricular response Coronary artery disease Diabetes mellitus, type 2 Fall Hypertension Multifactorial gait disorder Obesity PTSD (post-traumatic stress disorder) TIA (transient ischemic attack) Transient ischemic attack (TIA) Weakness Family History Family history: reviewed and not pertinent Social History Social History Household Members: None Housing: Apartment Do you presently have visiting nurse or other home services: No Alcohol intake: former Patient Tobacco Use Status: Never used Tobacco Smoked in Last 30 Days: No Second Hand Smoke Exposure: No Use of substances other than those prescribed or required for medical reasons: No Currently Displaying Signs/Symptoms of Drug Intoxication Withdrawal: No Have you been hit, kicked, punched, or otherwise hurt by someone within the past year? If so, by whom?: No Do you feel safe in your current relationship?: No Current Relationship Is there a partner from a previous relationship who is making you feel unsafe now?: No Are you made to feel afraid or neglected: No Advance Directives: Yes Advance Directives on File: Yes Advance Directives Date on File: 04/14/22 Do you have a plan to hurt others: No Plan Recently lost weight without trying: No Eating poorly because of decreased appetite: No Nutrition Risks: No Nutritional Risk Poor oral hygiene: No service: No Current occupational status: disabled Meds Allergies Allergy/AdvReac Type Severity Reaction Status Date / Time aspirin Allergy Severe OCCASIONAL Verified 04/08/22 14:18 RASH / TONGUE SWELLING, Hives, throat swellig bee pollen [BEE STINGS] Allergy Severe ANAPHYLAXIS Verified 04/08/22 14:18 Penicillins Allergy Severe ANAPHYLAXIS Verified 04/08/22 14:18 povidone-iodine [Betadine] Allergy Severe Redness of Verified 04/08/22 14:18 Skin soap [Betadine] Allergy Severe Redness of Verified 04/08/22 14:18 Skin spider venom [SPIDER BITES] Allergy Severe Hives Verified 04/08/22 14:18 amoxicillin Allergy Intermediate Hives Verified 04/08/22 14:18 clindamycin Allergy Mild RASH Verified 04/08/22 14:18 latex [Latex] Allergy Mild RASH Verified 04/08/22 14:18 shrimp Allergy Hives Verified 06/21/22 11:48 bupropion [From WELLBUTRIN] AdvReac Severe SEIZURES Verified 04/08/22 14:18 adhesive tape AdvReac Mild Rash Verified 04/14/22 15:55 Active Medications: Current Medications Acetaminophen (Acetaminophen 325 Mg Tablet) 650 mg PO BID [facility] Last Admin: 07/12/22 07:34 Dose: 650 mg Acetaminophen (Acetaminophen 325 Mg Tablet) 650 mg PO Q6H PRN PRN Reason: Pain, Mild (Pain Scale 1-3) Last Admin: 07/12/22 13:52 Dose: 650 mg Albuterol Sulfate (Albuterol Sulfate 90 Mcg 8 Gm Inhaler) 2 puff INHALE Q4H PRN PRN Reason: Shortness Of Breath Apixaban (Apixaban 5 Mg Tablet) 5 mg PO BID [facility] Last Admin: 07/12/22 07:35 Dose: 5 mg Ascorbic Acid (Ascorbic Acid 250 Mg Tablet) 250 mg PO DAILY [facility] Last Admin: 07/12/22 11:15 Dose: 250 mg Atorvastatin Calcium (Atorvastatin Calcium 80 Mg Tablet) 80 mg PO DAILY [facility] Last Admin: 07/12/22 07:35 Dose: 80 mg Cyanocobalamin (Cyanocobalamin (Vitamin B-12) 1,000 Mcg Tablet) 1,000 mcg PO DAILY [facility] Last Admin: 07/12/22 07:35 Dose: 1,000 mcg Dextrose (Dextrose 50 % 25 Gm/50 Ml Syringe) 25 gm IVPUSH Q15M PRN; Protocol PRN Reason: per Hypoglycemia Standing Ord. Digoxin (Digoxin 0.125 Mg Tablet) 0.125 mg PO Q48H [facility] Last Admin: 07/12/22 07:34 Dose: 0.125 mg Duloxetine HCl (Duloxetine Hcl 30 Mg Capsule.) 30 mg PO DAILY [facility] Last Admin: 07/12/22 07:35 Dose: 30 mg Duloxetine HCl (Duloxetine Hcl 60 Mg Capsule.) 60 mg PO BEDTIME [facility] Last Admin: 07/11/22 21:15 Dose: 60 mg Empagliflozin (Empagliflozin 10 Mg Tablet) 10 mg PO DAILY [facility] Ferrous Sulfate (Ferrous Sulfate 324 Mg Tablet.) 324 mg PO DAILY [facility] Last Admin: 07/12/22 11:15 Dose: 324 mg Fluticasone Propionate (Fluticasone Propionate Nasal 16 Gm [place]) 1 spray NOSTRIL-B BID [facility] Last Admin: 07/12/22 07:44 Dose: 1 spray Gabapentin (Gabapentin 400 Mg Capsule) 400 mg PO 5XD [facility] Last Admin: 07/12/22 13:53 Dose: 400 mg Glucose (Glucose Gel 15 Gm Gel..Gram.) 15 gm PO Q15M PRN; Protocol PRN Reason: per Hypoglycemia Standing Ord. Guaifenesin (Guaifenesin 100 Mg/5 Ml Liquid) 10 ml PO Q6H PRN PRN Reason: Cough Hydroxyzine HCl (Hydroxyzine Hcl 25 Mg Tablet) 25 mg PO TID PRN PRN Reason: Anxiety Vancomycin HCl 1,500 mg/ (Sodium Chloride) 500 mls @ 333.333 mls/hr IV Q12H [facility] Last Infusion: 07/12/22 14:12 Dose: Infused Insulin Glargine (Insulin Glargine,Hum.Rec.Anlog 100 Unit/Ml 10 Ml Vial) 20 unit SUBCUT BEDTIME [facility] Last Admin: 07/11/22 21:14 Dose: 20 unit Insulin Human Lispro (Insulin Lispro 100 Unit/Ml 3 Ml Vial) 0 unit SUBCUT QIDACHS [facility]; Protocol Last Admin: 07/12/22 11:16 Dose: 2 unit Lorazepam (Lorazepam 1 Mg Tablet) 2 mg PO TID PRN PRN Reason: Anxiety Last Admin: 07/12/22 07:34 Dose: 2 mg Melatonin (Melatonin 3 Mg Tablet) 6 mg PO BEDTIME PRN PRN Reason: Insomnia Metoprolol Succinate (Metoprolol Succinate Er 25 Mg Tab.Er.24h) 75 mg PO BID [facility]; Protocol Omeprazole (Omeprazole 20 Mg Capsule.) 20 mg PO DAILY@0630 [facility] Last Admin: 07/12/22 06:23 Dose: 20 mg Ondansetron HCl (Ondansetron Hcl 4 Mg/2 Ml Vial) 4 mg IVPUSH Q8H PRN PRN Reason: Nausea and Vomiting Oxycodone HCl (Oxycodone Hcl Immed Release 5 Mg Tablet) 5 mg PO Q6H PRN PRN Reason: Pain, Moderate (Pain Scale 4-6 Last Admin: 07/12/22 11:15 Dose: 5 mg Pharmacy Consult (Consult Rx Perform Med Rec) 1 each MISCELLANE ONCE PRN PRN Reason: Consult order Pharmacy Consult (Consult Rx Vancomycin Dosing) 1 each MISCELLANE DAILY PRN PRN Reason: Consult order Phenytoin Sodium (Phenytoin Sodium Extended 100 Mg Capsule) 300 mg PO DAILY [facility] Last Admin: 07/12/22 07:34 Dose: 300 mg Phenytoin Sodium (Phenytoin Sodium Extended 100 Mg Capsule) 400 mg PO BEDTIME [facility] Last Admin: 07/11/22 21:14 Dose: 400 mg Quetiapine Fumarate (Quetiapine Fumarate 100 Mg Tablet) 100 mg PO BEDTIME PRN PRN Reason: Insomnia Quetiapine Fumarate (Quetiapine Fumarate 200 Mg Tablet) 200 mg PO BID [facility] Last Admin: 07/12/22 07:34 Dose: 200 mg Sodium Chloride (0.9 % Sodium Chloride Flush 3 Ml Syringe) 3 ml IVFLUSH QSHIFT [facility] Last Admin: 07/12/22 07:36 Dose: 3 ml Trazodone HCl (Trazodone Hcl 100 Mg Tablet) 100 mg PO BEDTIME [facility] Last Admin: 07/11/22 21:15 Dose: 100 mg Vitamin D (Cholecalciferol (Vitamin D3) 25 Mcg Tablet) 25 mcg PO DAILY [facility] Last Admin: 07/12/22 07:34 Dose: 25 mcg Home Medications Medication Instructions Recorded Confirmed Last Taken Type apixaban 5 mg tablet (Eliquis) 1 tab PO BID 07/08/22 07/08/22 Unknown History empagliflozin 10 mg tablet 1 tab PO DAILY 07/08/22 07/08/22 Unknown History (Jardiance) hydroxyzine HCl 25 mg tablet 1 tab PO TID PRN Anxiety 07/08/22 07/08/22 Unknown History isosorbide mononitrate 60 mg 1 tab PO DAILY 07/08/22 07/08/22 Unknown History tablet,extended release 24 hr lorazepam 2 mg tablet 1 tab PO TID PRN Anxiety 07/08/22 07/08/22 Unknown History metformin 1,000 mg tablet 1 tab PO DAILY 07/08/22 07/08/22 Unknown History oxycodone 5 mg tablet 1 tab PO BID PRN Pain 07/08/22 07/08/22 Unknown History pantoprazole 40 mg tablet,delayed 1 tab PO DAILY@0630 07/08/22 07/09/22 Unknown History release phenytoin sodium extended 100 mg 300 mg PO DAILY 07/08/22 07/09/22 Unknown History capsule trazodone 50 mg tablet 2 tab PO BEDTIME 07/08/22 07/08/22 Unknown History acetaminophen 500 mg tablet 1,000 mg PO BID PRN Pain 07/09/22 07/09/22 Unknown History albuterol sulfate 90 mcg/actuation 2 puff inhalation Q4-6H PRN 07/09/22 07/09/22 Unknown History aerosol inhaler (ProAir HFA) Shortness Of Breath atorvastatin 80 mg tablet 1 tab PO DAILY 07/09/22 07/09/22 Unknown History cholecalciferol (vitamin D3) 25 25 mcg PO DAILY 07/09/22 07/09/22 Unknown History mcg (1,000 unit) capsule (Vitamin D3) cyanocobalamin (vitamin B-12) 1,000 mcg PO DAILY 07/09/22 07/09/22 Unknown History 1,000 mcg tablet digoxin 125 mcg (0.125 mg) tablet 1 tab PO Q2D 07/09/22 07/09/22 Unknown History duloxetine 30 mg capsule,delayed 30 mg PO DAILY 07/09/22 07/09/22 Unknown History release duloxetine 30 mg capsule,delayed 60 mg PO BEDTIME 07/09/22 07/09/22 Unknown History release fluticasone propionate 50 1 spray intranasal BID 07/09/22 07/09/22 Unknown History mcg/actuation nasal spray,suspension gabapentin 400 mg capsule 1 cap PO 5XD 07/09/22 07/09/22 Unknown History guaifenesin 100 mg/5 mL oral liquid 200 mg PO Q6H PRN Cough 07/09/22 07/09/22 Unknown History insulin glargine 100 unit/mL (3 20 unit subcut BEDTIME 07/09/22 07/09/22 Unknown History mL) subcutaneous pen (Lantus Solostar U-100 Insulin) insulin lispro 100 unit/mL 2 - 10 unit subcut TIDAC 07/09/22 07/09/22 Unknown History subcutaneous pen metoprolol succinate 25 mg 3 tab PO BID 07/09/22 07/09/22 Unknown History tablet,extended release 24 hr phenytoin sodium extended 100 mg 400 mg PO BEDTIME 07/09/22 07/09/22 Unknown History capsule quetiapine 100 mg tablet 1 tab PO BEDTIME PRN Insomnia 07/09/22 07/09/22 Unknown History quetiapine 200 mg tablet 1 tab PO BID 07/09/22 07/09/22 Unknown History torsemide 20 mg tablet 2 tab PO DAILY 07/09/22 07/09/22 Unknown History Physical Exam Vital Signs: Vital Signs: Last Vital Signs Temp 98 F 07/12/22 14:41 Pulse 82 07/12/22 14:41 Resp 19 07/12/22 14:41 BP 142/74 H 07/12/22 14:41 Pulse Ox 95 07/12/22 14:41 O2 Del Method 07/12/22 14:41 O2 Flow Rate 4 07/12/22 06:47 Oxygen Flow Rate 4 07/08/22 02:29 BMI result Body Mass Index 47.5 Results Labs 07/12/22 02:31 07/12/22 02:31 Labs: Short CBC 07/11/22 07/12/22 Range/Units 21:38 02:31 WBC 9.0 7.9 (4.8-10.8) X10*3/uL Hgb 10.7 L 10.7 L (14.0-18.0) g/dl Hct 38.2 L 38.6 L (42.0-52.0) % Plt Count 271 259 (160-400) X10*3/uL BMP 07/11/22 07/12/22 21:39 02:31 Sodium 135 136 Potassium 3.4 3.3 Chloride 89 L 95 L Carbon Dioxide 37 H 27 BUN 15 14 Creatinine 1.03 0.99 Calcium 8.9 8.4 Liver Function 07/11/22 Range/Units 21:39 Total Bilirubin 0.4 (0.0-1.0) mg/dL AST 10 (5-37) U/L ALT 7 (0-40) U/L Alkaline Phosphatase 104 (39-117) U/L Albumin 3.4 L (3.5-5.0) g/dL Microbiology Microbiology Results: Microbiology 07/09/22 18:22 Urine clean catch - Urine drew top Urine Culture - Final Staphylococcus aureus Assessment and Plan (1) UTI (urinary tract infection): Status: Acute He had some dysuria so symptomatic UTI likely. Blood cultures are pending so there is concern over bacteremia but no signs of endocarditis. (2) Accidental fall: Status: Acute Plan Would give po Doxycycline 100 mg bid for 14 days if no bactermia. Await blood cultures. Time Spent With Patient Time: Total time managing care of this patient today ____ minutes.
[2022-07-12 16:36] LABS: Glucose, Whole Blood 173 mg/dL (60-115)
[2022-07-12] MEDS: Doxycycline Monohydrate 100 MG CAPSULE PO (18:15)
[2022-07-12 19:48] VITALS: BP 157/58; PULSE 64; RESP 18; TEMP 36.9; O2SAT 97
[2022-07-12 19:56] LABS: Glucose, Whole Blood 163 mg/dL (60-115)
[2022-07-12] MEDS: Insulin Glargine,Hum.rec.anlog 100 UNIT/ML 10 ML VIAL 20 UNIT SUBCUT (20:08)
[2022-07-12] MEDS: DULoxetine HCl 60 MG CAPSULE.DR PO (20:09)
[2022-07-12] MEDS: traZODone HCL 100 MG TABLET PO (20:09)
[2022-07-12] MEDS: Metoprolol Succinate ER 25 MG TAB.ER.24H 75 MG PO (20:10)
[2022-07-12] MEDS: Phenytoin Sodium Extended 100 MG CAPSULE 400 MG PO (20:19)
--- NOTE | 2022-07-12 20:52 | PC.NURSE ---
patient is alert and oriented, high fall risk and is refusing camera that was placed earlier today in his room. Also his black I phone was found during linen change.
[2022-07-13] MEDS: oxyCODONE HCl Immed Release 5 MG TABLET PO ×5 (01:03→21:55)
[2022-07-13] MEDS: LORazepam 1 MG TABLET 2 MG PO ×3 (01:08→19:38)
[2022-07-13 03:52] VITALS: BP 118/65; PULSE 98; RESP 20; TEMP 36.2; O2SAT 99
[2022-07-13] MEDS: Omeprazole 20 MG CAPSULE.DR PO (05:41)
[2022-07-13] MEDS: Gabapentin 400 MG CAPSULE PO ×4 (05:41→21:31)
[2022-07-13] MEDS: Doxycycline Monohydrate 100 MG CAPSULE PO ×2 (05:41→16:46)
[2022-07-13 07:34] LABS: Glucose, Whole Blood 206 mg/dL (60-115)
[2022-07-13] MEDS: QUEtiapine Fumarate 200 MG TABLET PO ×2 (07:55→21:31)
[2022-07-13] MEDS: DULoxetine HCl 30 MG CAPSULE.DR PO (07:55)
[2022-07-13] MEDS: Cyanocobalamin (Vitamin B-12) 1,000 MCG TABLET 1000 MCG PO (07:55)
[2022-07-13] MEDS: Cholecalciferol (Vitamin D3) 25 MCG TABLET PO (07:55)
[2022-07-13] MEDS: Ferrous Sulfate 324 MG TABLET.DR PO (07:55)
[2022-07-13] MEDS: Phenytoin Sodium Extended 100 MG CAPSULE 300 MG PO (07:56)
[2022-07-13] MEDS: Ascorbic Acid 250 MG TABLET PO (07:56)
[2022-07-13] MEDS: Acetaminophen 325 MG TABLET 650 MG PO ×2 (07:56→19:26)
[2022-07-13] MEDS: Empagliflozin 10 MG TABLET PO (07:56)
[2022-07-13] MEDS: Metoprolol Succinate ER 25 MG TAB.ER.24H 75 MG PO ×2 (07:57→21:30)
[2022-07-13] MEDS: Atorvastatin Calcium 80 MG TABLET PO (07:57)
[2022-07-13] MEDS: Apixaban 5 MG TABLET PO ×2 (07:57→21:31)
[2022-07-13] MEDS: Insulin Lispro 100 UNIT/ML 3 ML VIAL SUBCUT ×4 (07:57→21:29)
[2022-07-13] MEDS: 0.9 % Sodium Chloride Flush 3 ML SYRINGE IVFLUSH ×2 (07:58→16:49)
[2022-07-13 08:00] VITALS: BP 111/59; PULSE 104; RESP 20; TEMP 36.2; O2SAT 98
[2022-07-13] MEDS: Fluticasone Propionate Nasal 16 GM SPRAY 1 SPRAY NOSTRIL-B ×2 (08:05→21:32)
[2022-07-13 08:16] LABS: MANUAL DIFF FLAG NO
[2022-07-13 08:22] LABS: Basophils Percent Auto 0.3 % (0-2); Eosinophils Absolute Auto 0.1 X10*3/uL (0.0-0.4); Eosinophils Percent Auto 1.3 % (0-4); Hematocrit 36.2 % (42.0-52.0); Hemoglobin 10.1 g/dl (14.0-18.0); Imm Gran Abs Auto 0.01 X10*3/uL (0.00-0.03); Imm Gran Pct Auto 0.2 % (0.0-0.4); Lymphocytes Absolute Auto 0.8 X10*3/uL (1.2-4.9); Lymphocytes Percent Auto 12.2 % (20-40); Mean Corpuscular HGB Conc 27.9 g/dl (31.0-36.0); Mean Corpuscular Hemoglobin 21.9 pg (27.0-33.0); Mean Corpuscular Volume 78.4 fL (80.0-98.0); Mean Platelet Volume 10.8 fL (9.4-12.4); Monocytes Absolute Auto 0.4 X10*3/uL (0.1-1.2); Platelet Count 267 X10*3/uL (160-400); Red Blood Count 4.62 X10*6/uL (4.60-5.80); Red Cell Distribution Width 19.3 % (11.0-16.0); White Blood Count 6.3 X10*3/uL (4.8-10.8)
[2022-07-13 08:35] LABS: Vancomycin Trough 8.2 mcg/mL (10.0-20.0)
[2022-07-13 08:38] LABS: Anion Gap 19 (12-20); Blood Urea Nitrogen 11 mg/dL (9-16); Calcium 8.7 mg/dL (8.4-10.2); Carbon Dioxide 28 mmol/L (22-29); Chloride 94 mmol/L (96-108); Creatinine Clr Calc Pharmacy 159.8; Estimated Glomerular Filt Rate > 60; Glucose Random 223 mg/dL (60-115); Potassium 3.9 mmol/L (3.3-5.1); Sodium 137 mmol/L (135-145)
--- NOTE | 2022-07-13 09:07 | MHC.CM.PN ---
CM MET W/PT WHO REPORTS HE IS IN A W/C AT [facility] HOWEVER USUALLY IS ABLE TO TRANSFER SELF TO [facility] AND BED AND CURRENTLY PT REQUIRES ASSISTANCE FOR TXFRS AND WOULD STILL LIKE STR. PT DOES REPORT HE WANTS TO GET INTO THE [facility] AND GIVES THIS CM VERBAL CONSENT TO CONTACT [facility] TO DISCUSS CASE. CM WILL CONT TO FOLLOW D/C NEEDS.
[2022-07-13 11:14] VITALS: BP 111/59; PULSE 104; O2SAT 98
[2022-07-13 11:24] LABS: Glucose, Whole Blood 184 mg/dL (60-115)
--- NOTE | 2022-07-13 11:42 | HO.PM.IMPN ---
Subjective Subjective Date of Service: 07/13/22 Interval History: c/o dysuria + suprapubic pain no fever no flank pain Review of Systems Review of Systems: Yes all other systems are reviewed and are negative Physical Exam Vital Signs: Vital Signs: Last Vital Signs Temp 97.2 F 07/13/22 08:00 Pulse 104 H 07/13/22 11:14 Resp 20 07/13/22 08:00 BP 111/59 L 07/13/22 11:14 Pulse Ox 98 07/13/22 11:14 O2 Del Method 07/13/22 08:00 O2 Flow Rate 4 07/13/22 08:00 Oxygen Flow Rate 4 07/08/22 02:29 BMI result Body Mass Index 47.5 Gen: in no acute distress HEENT: sclera anicteric, moist mucus membranes Neck: supple Lungs: clear to auscultation bilaterally Heart: irregularly irregular, no murmurs Abd: soft, non-tender, non-distended, obese Ext: no edema Skin: warm/well-perfused Neuro: alert and oriented x3, no focal findings Psych: appropriate affect Objective Data Active Medications Acetaminophen (Acetaminophen 325 Mg Tablet) 650 mg PO BID [facility] Last Admin: 07/13/22 07:56 Dose: 650 mg Documented By: MICHAEL Acetaminophen (Acetaminophen 325 Mg Tablet) 650 mg PO Q6H PRN PRN Reason: Pain, Mild (Pain Scale 1-3) Last Admin: 07/12/22 13:52 Dose: 650 mg Documented By: JESSICA-RIVHANY Albuterol Sulfate (Albuterol Sulfate 90 Mcg 8 Gm Inhaler) 2 puff INHALE Q4H PRN PRN Reason: Shortness Of Breath Apixaban (Apixaban 5 Mg Tablet) 5 mg PO BID [facility] Last Admin: 07/13/22 07:57 Dose: 5 mg Documented By: MICHAEL Ascorbic Acid (Ascorbic Acid 250 Mg Tablet) 250 mg PO DAILY [facility] Last Admin: 07/13/22 07:56 Dose: 250 mg Documented By: MICHAEL Atorvastatin Calcium (Atorvastatin Calcium 80 Mg Tablet) 80 mg PO DAILY [facility] Last Admin: 07/13/22 07:57 Dose: 80 mg Documented By: MICHAEL Cyanocobalamin (Cyanocobalamin (Vitamin B-12) 1,000 Mcg Tablet) 1,000 mcg PO DAILY [facility] Last Admin: 07/13/22 07:55 Dose: 1,000 mcg Documented By: MICHAEL Dextrose (Dextrose 50 % 25 Gm/50 Ml Syringe) 25 gm IVPUSH Q15M PRN; Protocol PRN Reason: per Hypoglycemia Standing Ord. Digoxin (Digoxin 0.125 Mg Tablet) 0.125 mg PO Q48H [facility] Last Admin: 07/12/22 07:34 Dose: 0.125 mg Documented By: N-RIVLA Doxycycline Monohydrate (Doxycycline Monohydrate 100 Mg Capsule) 100 mg PO Q12H [facility] Stop: 07/26/22 06:01 Last Admin: 07/13/22 05:41 Dose: 100 mg Documented By: HEAML Duloxetine HCl (Duloxetine Hcl 30 Mg Capsule.) 30 mg PO DAILY [facility] Last Admin: 07/13/22 07:55 Dose: 30 mg Documented By: MICHAEL Duloxetine HCl (Duloxetine Hcl 60 Mg Capsule.) 60 mg PO BEDTIME [facility] Last Admin: 07/12/22 20:09 Dose: 60 mg Documented By: HEMAL Empagliflozin (Empagliflozin 10 Mg Tablet) 10 mg PO DAILY [facility] Last Admin: 07/13/22 07:56 Dose: 10 mg Documented By: MICHAEL Ferrous Sulfate (Ferrous Sulfate 324 Mg Tablet.) 324 mg PO DAILY [facility] Last Admin: 07/13/22 07:55 Dose: 324 mg Documented By: MICHAEL Fluticasone Propionate (Fluticasone Propionate Nasal 16 Gm [place]) 1 spray NOSTRIL-B BID [facility] Last Admin: 07/13/22 08:05 Dose: 1 spray Documented By: MICHAEL Gabapentin (Gabapentin 400 Mg Capsule) 400 mg PO 5XD [facility] Last Admin: 07/13/22 07:57 Dose: 400 mg Documented By: MICHAEL Glucose (Glucose Gel 15 Gm Gel..Gram.) 15 gm PO Q15M PRN; Protocol PRN Reason: per Hypoglycemia Standing Ord. Guaifenesin (Guaifenesin 100 Mg/5 Ml Liquid) 10 ml PO Q6H PRN PRN Reason: Cough Hydroxyzine HCl (Hydroxyzine Hcl 25 Mg Tablet) 25 mg PO TID PRN PRN Reason: Anxiety Insulin Glargine (Insulin Glargine,Hum.Rec.Anlog 100 Unit/Ml 10 Ml Vial) 20 unit SUBCUT BEDTIME [facility] Last Admin: 07/12/22 20:08 Dose: 20 unit Documented By: HEMAL Insulin Human Lispro (Insulin Lispro 100 Unit/Ml 3 Ml Vial) 0 unit SUBCUT QIDACHS [facility]; Protocol Last Admin: 07/13/22 07:57 Dose: 4 unit Documented By: MICHAEL Lorazepam (Lorazepam 1 Mg Tablet) 2 mg PO TID PRN PRN Reason: Anxiety Last Admin: 07/13/22 09:25 Dose: 2 mg Documented By: MICHAEL Melatonin (Melatonin 3 Mg Tablet) 6 mg PO BEDTIME PRN PRN Reason: Insomnia Metoprolol Succinate (Metoprolol Succinate Er 25 Mg Tab.Er.24h) 75 mg PO BID [facility]; Protocol Last Admin: 07/13/22 07:57 Dose: 75 mg Documented By: MICHAEL Omeprazole (Omeprazole 20 Mg Capsule.Dr) 20 mg PO DAILY@0630 [facility] Last Admin: 07/13/22 05:41 Dose: 20 mg Documented By: HEMAL Ondansetron HCl (Ondansetron Hcl 4 Mg/2 Ml Vial) 4 mg IVPUSH Q8H PRN PRN Reason: Nausea and Vomiting Pharmacy Consult (Consult Rx Perform Med Rec) 1 each MISCELLANE ONCE PRN PRN Reason: Consult order Phenytoin Sodium (Phenytoin Sodium Extended 100 Mg Capsule) 300 mg PO DAILY [facility] Last Admin: 07/13/22 07:56 Dose: 300 mg Documented By: MICHAEL Phenytoin Sodium (Phenytoin Sodium Extended 100 Mg Capsule) 400 mg PO BEDTIME [facility] Last Admin: 07/12/22 20:19 Dose: 400 mg Documented By: HEMAL Quetiapine Fumarate (Quetiapine Fumarate 100 Mg Tablet) 100 mg PO BEDTIME PRN PRN Reason: Insomnia Quetiapine Fumarate (Quetiapine Fumarate 200 Mg Tablet) 200 mg PO BID [facility] Last Admin: 07/13/22 07:55 Dose: 200 mg Documented By: MICHAEL Sodium Chloride (0.9 % Sodium Chloride Flush 3 Ml Syringe) 3 ml IVFLUSH QSHIFT [facility] Last Admin: 07/13/22 07:58 Dose: 3 ml Documented By: MICHAEL Trazodone HCl (Trazodone Hcl 100 Mg Tablet) 100 mg PO BEDTIME [facility] Last Admin: 07/12/22 20:09 Dose: 100 mg Documented By: HEMAL Vitamin D (Cholecalciferol (Vitamin D3) 25 Mcg Tablet) 25 mcg PO DAILY [facility] Last Admin: 07/13/22 07:55 Dose: 25 mcg Documented By: MICHAEL Labs 07/13/22 07:43 07/13/22 07:43 Labs: Laboratory Results - last 24 hr 07/12/22 07/12/22 07/13/22 16:19 19:46 07:22 MCV MCH MCHC RDW Plt Count MPV Immature Gran % (Auto) Neut % (Auto) Lymph % (Auto) [place] % (Auto) Eos % (Auto) Baso % (Auto) Lymph # (Auto) [place] # (Auto) Eos # (Auto) Baso # (Auto) Abs Immat Gran (auto) Absolute Neuts (auto) Absolute Nucleated RBC Nucleated RBC % (auto) Anion Gap Estim Creat Clear Calc Estimated GFR POC Glucose 173 H 163 H 206 H Random Glucose Calcium Vancomycin Trough 07/13/22 07/13/22 07/13/22 07:43 07:43 07:43 MCV 78.4 L MCH 21.9 L MCHC 27.9 L RDW 19.3 H Plt Count 267 MPV 10.8 Immature Gran % (Auto) 0.2 Neut % (Auto) 79.0 H Lymph % (Auto) 12.2 L [place] % (Auto) 7.0 Eos % (Auto) 1.3 Baso % (Auto) 0.3 Lymph # (Auto) 0.8 L [place] # (Auto) 0.4 Eos # (Auto) 0.1 Baso # (Auto) 0.0 Abs Immat Gran (auto) 0.01 Absolute Neuts (auto) 5.0 Absolute Nucleated RBC 0.000 Nucleated RBC % (auto) 0.0 Anion Gap 19 Estim Creat Clear Calc 159.8 Estimated GFR > 60 POC Glucose Random Glucose 223 H Calcium 8.7 Vancomycin Trough 8.2 L 07/13/22 11:18 MCV MCH MCHC RDW Plt Count MPV Immature Gran % (Auto) Neut % (Auto) Lymph % (Auto) [place] % (Auto) Eos % (Auto) Baso % (Auto) Lymph # (Auto) [place] # (Auto) Eos # (Auto) Baso # (Auto) Abs Immat Gran (auto) Absolute Neuts (auto) Absolute Nucleated RBC Nucleated RBC % (auto) Anion Gap Estim Creat Clear Calc Estimated GFR POC Glucose 184 H Random Glucose Calcium Vancomycin Trough Microbiology Microbiology Results: Microbiology 07/11/22 21:40 Blood Culture - Preliminary Blood - Venous No growth after 24 hours. 07/11/22 21:40 Blood Culture - Preliminary Blood - Venous No growth after 24 hours. Assessment and Plan (1) UTI (urinary tract infection): Status: Acute Plan hospital d#3 62-year-old male with pertinent history of atrial fibrillation on Eliquis, insulin-dependent diabetes mellitus, mood disorder, morbid obesity, chronic pain with opioid use, who initially presented on 07/08 after mechanical fall and was kept as physician observation in the ER.? Pt admitted to hospital service for further management of MSSA UTI # MSSA UTI - BCx no growth to date, awaiting finals tonight, on doxycycline 07/12-07/26 per ID consultation # lactic acidosis - related to metformin use, not severe sepsis; resolved # HTN - antihypertensives held on admission due to soft BP; metoprolol succinate resumed; continue to hold isosorbid mononitrate + torsemide # paroxysmal AF - continue apixaban for stroke prevention - continue metoprolol succinate + digoxin for rate control # DM2 with hyperglycemia + neuropathy - hold MTF - continue insuline glargine + empagliflozin, correction-dose lispro - continue gabapentin + duloxetine # chronic hypoxic resp failure - on home O2 4L # mild intermittent asthma without acute exacerbation - prn nebs # seizure disorder - continue phenytoin # chronic iron deficiency anemia - Fe supplementation # mood disorder - continue quetiapine, trazodone, duloxetine # VTE ppx: apixaban # dispo: awaiting STR placement In my clinical judgment, the patient requires continued inpatient hospitalization for the following reasons: await final BCx to r/o bacteremia with MSSA, placement Time Spent With Patient Time: Total time managing care of this patient today _35___ minutes. Quality Stroke Does the patient have a stroke diagnosis?: No VTE Prior VTE?: No VTE Risk Level:: Medical - moderate - high VTE Device Contraindication: Treatment Not Indicated VTE Drug Contraindication: N/A - Med Ordered
[2022-07-13 15:58] VITALS: BP 122/67; PULSE 99; RESP 19; TEMP 36.8; O2SAT 97
[2022-07-13 16:19] LABS: Glucose, Whole Blood 211 mg/dL (60-115)
--- NOTE | 2022-07-13 19:28 | PC.NURSE ---
patient refuses camera
[2022-07-13 19:51] VITALS: BP 135/61; PULSE 102; RESP 17; TEMP 36.8; O2SAT 98
[2022-07-13 20:36] LABS: Glucose, Whole Blood 254 mg/dL (60-115)
[2022-07-13] MEDS: Insulin Glargine,Hum.rec.anlog 100 UNIT/ML 10 ML VIAL 20 UNIT SUBCUT (21:28)
[2022-07-13] MEDS: Phenytoin Sodium Extended 100 MG CAPSULE 400 MG PO (21:30)
[2022-07-13] MEDS: DULoxetine HCl 60 MG CAPSULE.DR PO (21:30)
[2022-07-13] MEDS: traZODone HCL 100 MG TABLET PO (21:31)
[2022-07-14] MEDS: 0.9 % Sodium Chloride Flush 3 ML SYRINGE IVFLUSH ×3 (00:21→16:44)
[2022-07-14] MEDS: oxyCODONE HCl Immed Release 5 MG TABLET PO ×5 (02:48→21:13)
[2022-07-14 03:28] VITALS: BP 103/59; PULSE 88; RESP 18; TEMP 36.1; O2SAT 93
[2022-07-14] MEDS: LORazepam 1 MG TABLET 2 MG PO ×3 (05:14→21:20)
[2022-07-14] MEDS: Doxycycline Monohydrate 100 MG CAPSULE PO ×2 (05:14→16:43)
[2022-07-14] MEDS: Gabapentin 400 MG CAPSULE PO ×5 (05:14→21:02)
[2022-07-14] MEDS: Omeprazole 20 MG CAPSULE.DR PO (05:14)
[2022-07-14 07:08] VITALS: BP 104/63; PULSE 98; RESP 24; TEMP 36.4; O2SAT 90
[2022-07-14 07:17] LABS: Glucose, Whole Blood 194 mg/dL (60-115)
[2022-07-14] MEDS: Insulin Lispro 100 UNIT/ML 3 ML VIAL SUBCUT ×4 (07:55→21:05)
[2022-07-14] MEDS: Metoprolol Succinate ER 25 MG TAB.ER.24H 75 MG PO ×2 (07:56→21:04)
[2022-07-14] MEDS: DULoxetine HCl 30 MG CAPSULE.DR PO (07:56)
[2022-07-14] MEDS: Atorvastatin Calcium 80 MG TABLET PO (07:56)
[2022-07-14] MEDS: Phenytoin Sodium Extended 100 MG CAPSULE 300 MG PO (07:56)
[2022-07-14] MEDS: Ferrous Sulfate 324 MG TABLET.DR PO (07:56)
[2022-07-14] MEDS: Digoxin 0.125 MG TABLET PO (07:56)
[2022-07-14] MEDS: Acetaminophen 325 MG TABLET 650 MG PO ×3 (07:56→21:03)
[2022-07-14] MEDS: Ascorbic Acid 250 MG TABLET PO (07:56)
[2022-07-14] MEDS: Apixaban 5 MG TABLET PO ×2 (07:57→21:04)
[2022-07-14] MEDS: QUEtiapine Fumarate 200 MG TABLET PO ×2 (07:57→21:04)
[2022-07-14] MEDS: Cyanocobalamin (Vitamin B-12) 1,000 MCG TABLET 1000 MCG PO (07:57)
[2022-07-14] MEDS: Empagliflozin 10 MG TABLET PO (07:57)
[2022-07-14] MEDS: Cholecalciferol (Vitamin D3) 25 MCG TABLET PO (07:57)
[2022-07-14] MEDS: Fluticasone Propionate Nasal 16 GM SPRAY 1 SPRAY NOSTRIL-B (07:58)
[2022-07-14] MEDS: ondansetron HCL 4 MG/2 ML VIAL IVPUSH (08:07)
[2022-07-14 08:40] VITALS: BP 104/63; PULSE 98; O2SAT 90
--- NOTE | 2022-07-14 11:07 | P.PNIM_ITS ---
Subjective Subjective Date of Service: 07/14/22 Interval History: bladder/urinary pain controlled no fever Review of Systems Review of Systems: Yes all other systems are reviewed and are negative Physical Exam Vital Signs: Vital Signs: Last Vital Signs Temp 97.5 F 07/14/22 07:08 Pulse 98 07/14/22 08:40 Resp 24 H 07/14/22 07:08 BP 104/63 07/14/22 08:40 Pulse Ox 90 L 07/14/22 08:40 O2 Del Method 07/14/22 07:08 O2 Flow Rate 4 07/14/22 07:08 Oxygen Flow Rate 4 07/08/22 02:29 BMI result Body Mass Index 47.5 Const: Other: Gen: in no acute distress HEENT: sclera anicteric, moist mucus membranes Neck: supple Lungs: clear to auscultation bilaterally Heart: irregularly irregular, no murmurs Abd: soft, non-tender, non-distended, obese Ext: no edema Skin: warm/well-perfused Neuro: alert and oriented x3, no focal findings Psych: appropriate affect Objective Data Active Medications Acetaminophen (Acetaminophen 325 Mg Tablet) 650 mg PO BID [facility] Last Admin: 07/14/22 07:56 Dose: 650 mg Documented By: JANIA Acetaminophen (Acetaminophen 325 Mg Tablet) 650 mg PO Q6H PRN PRN Reason: Pain, Mild (Pain Scale 1-3) Last Admin: 07/12/22 13:52 Dose: 650 mg Documented By: JESÚS Albuterol Sulfate (Albuterol Sulfate 90 Mcg 8 Gm Inhaler) 2 puff INHALE Q4H PRN PRN Reason: Shortness Of Breath Apixaban (Apixaban 5 Mg Tablet) 5 mg PO BID [facility] Last Admin: 07/14/22 07:57 Dose: 5 mg Documented By: JANIA Ascorbic Acid (Ascorbic Acid 250 Mg Tablet) 250 mg PO DAILY [facility] Last Admin: 07/14/22 07:56 Dose: 250 mg Documented By: JANIA Atorvastatin Calcium (Atorvastatin Calcium 80 Mg Tablet) 80 mg PO DAILY [facility] Last Admin: 07/14/22 07:56 Dose: 80 mg Documented By: JANIA Cyanocobalamin (Cyanocobalamin (Vitamin B-12) 1,000 Mcg Tablet) 1,000 mcg PO DAILY [facility] Last Admin: 07/14/22 07:57 Dose: 1,000 mcg Documented By: JANIA Dextrose (Dextrose 50 % 25 Gm/50 Ml Syringe) 25 gm IVPUSH Q15M PRN; Protocol PRN Reason: per Hypoglycemia Standing Ord. Digoxin (Digoxin 0.125 Mg Tablet) 0.125 mg PO Q48H [facility] Last Admin: 07/14/22 07:56 Dose: 0.125 mg Documented By: JANIA Doxycycline Monohydrate (Doxycycline Monohydrate 100 Mg Capsule) 100 mg PO Q12H [facility] Stop: 07/26/22 06:01 Last Admin: 07/14/22 05:14 Dose: 100 mg Documented By: JOB Duloxetine HCl (Duloxetine Hcl 30 Mg Capsule.) 30 mg PO DAILY [facility] Last Admin: 07/14/22 07:56 Dose: 30 mg Documented By: JANIA Duloxetine HCl (Duloxetine Hcl 60 Mg Capsule.) 60 mg PO BEDTIME [facility] Last Admin: 07/13/22 21:30 Dose: 60 mg Documented By: CATHY Empagliflozin (Empagliflozin 10 Mg Tablet) 10 mg PO DAILY [facility] Last Admin: 07/14/22 07:57 Dose: 10 mg Documented By: JANIA Ferrous Sulfate (Ferrous Sulfate 324 Mg Tablet.) 324 mg PO DAILY [facility] Last Admin: 07/14/22 07:56 Dose: 324 mg Documented By: JANIA Fluticasone Propionate (Fluticasone Propionate Nasal 16 Gm [place]) 1 spray NOSTRIL-B BID [facility] Last Admin: 07/14/22 07:58 Dose: 1 spray Documented By: JANIA Gabapentin (Gabapentin 400 Mg Capsule) 400 mg PO 5XD [facility] Last Admin: 07/14/22 10:30 Dose: 400 mg Documented By: JANIA Glucose (Glucose Gel 15 Gm Gel..Gram.) 15 gm PO Q15M PRN; Protocol PRN Reason: per Hypoglycemia Standing Ord. Guaifenesin (Guaifenesin 100 Mg/5 Ml Liquid) 10 ml PO Q6H PRN PRN Reason: Cough Hydroxyzine HCl (Hydroxyzine Hcl 25 Mg Tablet) 25 mg PO TID PRN PRN Reason: Anxiety Insulin Glargine (Insulin Glargine,Hum.Rec.Anlog 100 Unit/Ml 10 Ml Vial) 20 unit SUBCUT BEDTIME [facility] Last Admin: 07/13/22 21:28 Dose: 20 unit Documented By: CATHY Insulin Human Lispro (Insulin Lispro 100 Unit/Ml 3 Ml Vial) 0 unit SUBCUT QIDACHS [facility]; Protocol Last Admin: 07/14/22 07:55 Dose: 2 unit Documented By: JANIA Lorazepam (Lorazepam 1 Mg Tablet) 2 mg PO TID PRN PRN Reason: Anxiety Last Admin: 07/14/22 05:14 Dose: 2 mg Documented By: JOB Melatonin (Melatonin 3 Mg Tablet) 6 mg PO BEDTIME PRN PRN Reason: Insomnia Metoprolol Succinate (Metoprolol Succinate Er 25 Mg Tab.Er.24h) 75 mg PO BID [facility]; Protocol Last Admin: 07/14/22 07:56 Dose: 75 mg Documented By: JANIA Omeprazole (Omeprazole 20 Mg Capsule.Dr) 20 mg PO DAILY@0630 [facility] Last Admin: 07/14/22 05:14 Dose: 20 mg Documented By: JOB Ondansetron HCl (Ondansetron Hcl 4 Mg/2 Ml Vial) 4 mg IVPUSH Q8H PRN PRN Reason: Nausea and Vomiting Last Admin: 07/14/22 08:07 Dose: 4 mg Documented By: JANIA Oxycodone HCl (Oxycodone Hcl Immed Release 5 Mg Tablet) 5 mg PO Q4H PRN PRN Reason: Pain, Moderate (Pain Scale 4-6 Last Admin: 07/14/22 08:07 Dose: 5 mg Documented By: JANIA Pharmacy Consult (Consult Rx Perform Med Rec) 1 each MISCELLANE ONCE PRN PRN Reason: Consult order Phenytoin Sodium (Phenytoin Sodium Extended 100 Mg Capsule) 300 mg PO DAILY [facility] Last Admin: 07/14/22 07:56 Dose: 300 mg Documented By: JANIA Phenytoin Sodium (Phenytoin Sodium Extended 100 Mg Capsule) 400 mg PO BEDTIME [facility] Last Admin: 07/13/22 21:30 Dose: 400 mg Documented By: CATHY Quetiapine Fumarate (Quetiapine Fumarate 100 Mg Tablet) 100 mg PO BEDTIME PRN PRN Reason: Insomnia Quetiapine Fumarate (Quetiapine Fumarate 200 Mg Tablet) 200 mg PO BID [facility] Last Admin: 07/14/22 07:57 Dose: 200 mg Documented By: JANIA Sodium Chloride (0.9 % Sodium Chloride Flush 3 Ml Syringe) 3 ml IVFLUSH QSHIFT [facility] Last Admin: 07/14/22 07:58 Dose: 3 ml Documented By: JANIA Trazodone HCl (Trazodone Hcl 100 Mg Tablet) 100 mg PO BEDTIME [facility] Last Admin: 07/13/22 21:31 Dose: 100 mg Documented By: CATHY Vitamin D (Cholecalciferol (Vitamin D3) 25 Mcg Tablet) 25 mcg PO DAILY [facility] Last Admin: 07/14/22 07:57 Dose: 25 mcg Documented By: JANIA Comments: can't scan celophane package Labs 07/13/22 07:43 07/13/22 07:43 Labs: Laboratory Results - last 24 hr 07/13/22 07/13/22 07/13/22 11:18 16:01 20:28 POC Glucose 184 H 211 H 254 H 07/14/22 07:08 POC Glucose 194 H Microbiology Microbiology Results: Microbiology 07/11/22 21:40 Blood Culture - Preliminary Blood - Venous No growth after 48 hours. 07/11/22 21:40 Blood Culture - Preliminary Blood - Venous No growth after 48 hours. Assessment and Plan (1) UTI (urinary tract infection): Status: Acute Plan hospital d#4 62-year-old male with pertinent history of atrial fibrillation on Eliquis, insu paco-dependent diabetes mellitus, mood disorder, morbid obesity, chronic pain with opioid use, who initially presented on 07/08/22 after mechanical fall and was kept as physician observation in the ER.? Pt admitted to hospital service for further management of MSSA UTI # MSSA UTI - BCx negative, continue doxycycline 07/12-07/26 per ID senior internet sales consultant # lactic acidosis - related to metformin use, not severe sepsis; resolved # HTN - antihypertensives held on admission due to soft BP; metoprolol succinate resumed; continue to hold isosorbid mononitrate + torsemide # paroxysmal AF - continue apixaban for stroke prevention - continue metoprolol succinate + digoxin for rate control # DM2 with hyperglycemia + neuropathy - hold MTF - continue insuline glargine + empagliflozin, correction-dose lispro - continue gabapentin + duloxetine # chronic hypoxic resp failure - on home O2 4L # mild intermittent asthma without acute exacerbation - prn nebs # seizure disorder - continue phenytoin # chronic iron deficiency anemia - Fe supplementation # mood disorder - continue quetiapine, trazodone, duloxetine # VTE ppx: apixaban # dispo: awaiting STR placement In my clinical judgment, the patient requires continued inpatient hospitalization for the following reasons: STR placement Time Spent With Patient Time: Total time managing care of this patient today ___25_ minutes. Quality Stroke Does the patient have a stroke diagnosis?: No VTE Prior VTE?: No VTE Risk Level:: Medical - moderate - high VTE Device Contraindication: Treatment Not Indicated VTE Drug Contraindication: N/A - Med Ordered
[2022-07-14 11:17] LABS: Glucose, Whole Blood 168 mg/dL (60-115)
[2022-07-14 15:17] VITALS: BP 108/64; PULSE 66; RESP 19; TEMP 36.4; O2SAT 94
[2022-07-14 16:28] LABS: Glucose, Whole Blood 210 mg/dL (60-115)
[2022-07-14 19:27] VITALS: BP 107/72; PULSE 91; RESP 16; TEMP 36.6; O2SAT 97
[2022-07-14 20:33] LABS: Glucose, Whole Blood 165 mg/dL (60-115)
[2022-07-14] MEDS: Phenytoin Sodium Extended 100 MG CAPSULE 400 MG PO (21:00)
[2022-07-14] MEDS: DULoxetine HCl 60 MG CAPSULE.DR PO (21:03)
[2022-07-14] MEDS: traZODone HCL 100 MG TABLET PO (21:05)
[2022-07-14] MEDS: Insulin Glargine,Hum.rec.anlog 100 UNIT/ML 10 ML VIAL 20 UNIT SUBCUT (21:06)
[2022-07-15 04:00] VITALS: BP 117/56; PULSE 99; RESP 18; TEMP 36.1; O2SAT 98
[2022-07-15] MEDS: oxyCODONE HCl Immed Release 5 MG TABLET PO ×4 (04:22→20:20)
[2022-07-15] MEDS: hydrOXYzine HCL 25 MG TABLET PO ×2 (04:23→20:19)
[2022-07-15] MEDS: Gabapentin 400 MG CAPSULE PO ×5 (04:23→20:20)
[2022-07-15] MEDS: LORazepam 1 MG TABLET 2 MG PO ×2 (04:23→17:51)
[2022-07-15] MEDS: Doxycycline Monohydrate 100 MG CAPSULE PO ×2 (04:23→17:16)
[2022-07-15] MEDS: 0.9 % Sodium Chloride Flush 3 ML SYRINGE IVFLUSH ×3 (04:26→17:16)
[2022-07-15] MEDS: Acetaminophen 325 MG TABLET 650 MG PO (06:13)
[2022-07-15] MEDS: Omeprazole 20 MG CAPSULE.DR PO (06:15)
[2022-07-15 07:28] VITALS: BP 103/60; PULSE 80; RESP 20; TEMP 36.9; O2SAT 98
[2022-07-15 07:42] LABS: Glucose, Whole Blood 162 mg/dL (60-115)
[2022-07-15] MEDS: Apixaban 5 MG TABLET PO ×2 (09:07→20:20)
[2022-07-15] MEDS: Insulin Lispro 100 UNIT/ML 3 ML VIAL SUBCUT ×4 (09:07→20:14)
[2022-07-15] MEDS: QUEtiapine Fumarate 200 MG TABLET PO ×2 (09:07→20:21)
[2022-07-15] MEDS: Empagliflozin 10 MG TABLET PO (09:07)
[2022-07-15] MEDS: Cholecalciferol (Vitamin D3) 25 MCG TABLET PO (09:07)
[2022-07-15] MEDS: Ferrous Sulfate 324 MG TABLET.DR PO (09:08)
[2022-07-15] MEDS: Atorvastatin Calcium 80 MG TABLET PO (09:08)
[2022-07-15] MEDS: DULoxetine HCl 30 MG CAPSULE.DR PO (09:08)
[2022-07-15] MEDS: Cyanocobalamin (Vitamin B-12) 1,000 MCG TABLET 1000 MCG PO (09:08)
[2022-07-15] MEDS: Metoprolol Succinate ER 25 MG TAB.ER.24H 75 MG PO ×2 (09:08→20:16)
[2022-07-15] MEDS: Phenytoin Sodium Extended 100 MG CAPSULE 300 MG PO (09:08)
[2022-07-15] MEDS: Ascorbic Acid 250 MG TABLET PO (09:08)
[2022-07-15] MEDS: Fluticasone Propionate Nasal 16 GM SPRAY 1 SPRAY NOSTRIL-B ×2 (09:19→21:00)
[2022-07-15 09:37] VITALS: BP 103/60; PULSE 80; O2SAT 98
--- NOTE | 2022-07-15 11:19 | P.PNIM_ITS ---
Subjective Subjective Date of Service: 07/15/22 Interval History: Seens and evaluated this morning feels more comfortable, dysurea much better on 4L O2 home dose no overnight events reported Review of Systems Review of Systems: Yes all other systems are reviewed and are negative Physical Exam Vital Signs: Vital Signs: Last Vital Signs Temp 98.4 F 07/15/22 07:28 Pulse 80 07/15/22 09:37 Resp 20 07/15/22 07:28 BP 103/60 07/15/22 09:37 Pulse Ox 98 07/15/22 09:37 O2 Del Method 07/15/22 07:28 O2 Flow Rate 4 07/15/22 07:28 Oxygen Flow Rate 4 07/08/22 02:29 BMI result Body Mass Index 47.5 Const: Other: Gen: alert, interactive, not in distress Neck: supple Lungs: clear to auscultation bilaterally Heart: irregularly irregular, no murmurs Abd: soft, non-tender, non-distended, obese Ext: no edema Skin: warm/dry Neuro: alert and oriented x3, no focal findings Psych: appropriate affect Objective Data Active Medications Acetaminophen (Acetaminophen 325 Mg Tablet) 650 mg PO BID [facility] Last Admin: 07/15/22 06:13 Dose: 650 mg Documented By: JOAQUIN Acetaminophen (Acetaminophen 325 Mg Tablet) 650 mg PO Q6H PRN PRN Reason: Pain, Mild (Pain Scale 1-3) Last Admin: 07/14/22 16:53 Dose: 650 mg Documented By: VARSHA Albuterol Sulfate (Albuterol Sulfate 90 Mcg 8 Gm Inhaler) 2 puff INHALE Q4H PRN PRN Reason: Shortness Of Breath Apixaban (Apixaban 5 Mg Tablet) 5 mg PO BID [facility] Last Admin: 07/15/22 09:07 Dose: 5 mg Documented By: MAGDA Ascorbic Acid (Ascorbic Acid 250 Mg Tablet) 250 mg PO DAILY [facility] Last Admin: 07/15/22 09:08 Dose: 250 mg Documented By: MAGDA Atorvastatin Calcium (Atorvastatin Calcium 80 Mg Tablet) 80 mg PO DAILY [facility] Last Admin: 07/15/22 09:08 Dose: 80 mg Documented By: MAGDA Cyanocobalamin (Cyanocobalamin (Vitamin B-12) 1,000 Mcg Tablet) 1,000 mcg PO DAILY [facility] Last Admin: 07/15/22 09:08 Dose: 1,000 mcg Documented By: MAGDA Dextrose (Dextrose 50 % 25 Gm/50 Ml Syringe) 25 gm IVPUSH Q15M PRN; Protocol PRN Reason: per Hypoglycemia Standing Ord. Digoxin (Digoxin 0.125 Mg Tablet) 0.125 mg PO Q48H [facility] Last Admin: 07/14/22 07:56 Dose: 0.125 mg Documented By: JANIA Doxycycline Monohydrate (Doxycycline Monohydrate 100 Mg Capsule) 100 mg PO Q12H [facility] Stop: 07/26/22 06:01 Last Admin: 07/15/22 04:23 Dose: 100 mg Documented By: JOAQUIN Duloxetine HCl (Duloxetine Hcl 30 Mg Capsule.) 30 mg PO DAILY [facility] Last Admin: 07/15/22 09:08 Dose: 30 mg Documented By: MAGDA Duloxetine HCl (Duloxetine Hcl 60 Mg Capsule.) 60 mg PO BEDTIME [facility] Last Admin: 07/14/22 21:03 Dose: 60 mg Documented By: JOAQUIN Empagliflozin (Empagliflozin 10 Mg Tablet) 10 mg PO DAILY [facility] Last Admin: 07/15/22 09:07 Dose: 10 mg Documented By: MAGDA Ferrous Sulfate (Ferrous Sulfate 324 Mg Tablet.) 324 mg PO DAILY [facility] Last Admin: 07/15/22 09:08 Dose: 324 mg Documented By: MAGDA Fluticasone Propionate (Fluticasone Propionate Nasal 16 Gm [place]) 1 spray NOSTRIL-B BID [facility] Last Admin: 07/15/22 09:19 Dose: 1 spray Documented By: MAGDA Gabapentin (Gabapentin 400 Mg Capsule) 400 mg PO 5XD [facility] Last Admin: 07/15/22 09:07 Dose: 400 mg Documented By: MAGDA Glucose (Glucose Gel 15 Gm Gel..Gram.) 15 gm PO Q15M PRN; Protocol PRN Reason: per Hypoglycemia Standing Ord. Guaifenesin (Guaifenesin 100 Mg/5 Ml Liquid) 10 ml PO Q6H PRN PRN Reason: Cough Hydroxyzine HCl (Hydroxyzine Hcl 25 Mg Tablet) 25 mg PO TID PRN PRN Reason: Anxiety Last Admin: 07/15/22 04:23 Dose: 25 mg Documented By: JOAQUIN Insulin Glargine (Insulin Glargine,Hum.Rec.Anlog 100 Unit/Ml 10 Ml Vial) 20 un it SUBCUT BEDTIME [facility] Last Admin: 07/14/22 21:06 Dose: 20 unit Documented By: JOAQUIN Insulin Human Lispro (Insulin Lispro 100 Unit/Ml 3 Ml Vial) 0 unit SUBCUT QIDACHS [facility]; Protocol Last Admin: 07/15/22 09:07 Dose: 2 unit Documented By: MAGDA Comments: breakfast late Lorazepam (Lorazepam 1 Mg Tablet) 2 mg PO TID PRN PRN Reason: Anxiety Last Admin: 07/15/22 04:23 Dose: 2 mg Documented By: JOAQUIN Melatonin (Melatonin 3 Mg Tablet) 6 mg PO BEDTIME PRN PRN Reason: Insomnia Metoprolol Succinate (Metoprolol Succinate Er 25 Mg Tab.Er.24h) 75 mg PO BID [facility]; Protocol Last Admin: 07/15/22 09:08 Dose: 75 mg Documented By: MAGDA Omeprazole (Omeprazole 20 Mg Capsule.) 20 mg PO DAILY@0630 [facility] Last Admin: 07/15/22 06:15 Dose: 20 mg Documented By: JOAQUIN Ondansetron HCl (Ondansetron Hcl 4 Mg/2 Ml Vial) 4 mg IVPUSH Q8H PRN PRN Reason: Nausea and Vomiting Last Admin: 07/14/22 08:07 Dose: 4 mg Documented By: JANIA Oxycodone HCl (Oxycodone Hcl Immed Release 5 Mg Tablet) 5 mg PO Q4H PRN PRN Reason: Pain, Moderate (Pain Scale 4-6 Last Admin: 07/15/22 09:18 Dose: 5 mg Documented By: MAGDA Pharmacy Consult (Consult Rx Perform Med Rec) 1 each MISCELLANE ONCE PRN PRN Reason: Consult order Phenytoin Sodium (Phenytoin Sodium Extended 100 Mg Capsule) 300 mg PO DAILY [facility] Last Admin: 07/15/22 09:08 Dose: 300 mg Documented By: MAGDA Phenytoin Sodium (Phenytoin Sodium Extended 100 Mg Capsule) 400 mg PO BEDTIME S Last Admin: 07/14/22 21:00 Dose: 400 mg Documented By: JOAQUIN Quetiapine Fumarate (Quetiapine Fumarate 100 Mg Tablet) 100 mg PO BEDTIME PRN PRN Reason: Insomnia Quetiapine Fumarate (Quetiapine Fumarate 200 Mg Tablet) 200 mg PO BID [facility] Last Admin: 07/15/22 09:07 Dose: 200 mg Documented By: MAGDA Sodium Chloride (0.9 % Sodium Chloride Flush 3 Ml Syringe) 3 ml IVFLUSH QSHIFT [facility] Last Admin: 07/15/22 09:09 Dose: 3 ml Documented By: MAGDA Trazodone HCl (Trazodone Hcl 100 Mg Tablet) 100 mg PO BEDTIME [facility] Last Admin: 07/14/22 21:05 Dose: 100 mg Documented By: JOAQUIN Vitamin D (Cholecalciferol (Vitamin D3) 25 Mcg Tablet) 25 mcg PO DAILY [facility] Last Admin: 07/15/22 09:07 Dose: 25 mcg Documented By: MAGDA Labs 07/13/22 07:43 07/13/22 07:43 Labs: Laboratory Results - last 24 hr 07/14/22 07/14/22 07/15/22 16:22 20:22 07:25 POC Glucose 210 H 165 H 162 H Assessment and Plan (1) UTI (urinary tract infection): Status: Acute Plan hospital d#4 62-year-old male with pertinent history of atrial fibrillation on Eliquis, insulin-dependent diabetes mellitus, mood disorder, morbid obesity, chronic pain with opioid use, who initially presented on 07/08/22 after mechanical fall and was kept as physician observation in the ER.? Pt admitted to hospital service for further management of MSSA UTI # MSSA UTI BCx negative, continue doxycycline 07/12-07/26 per ID corporate health consultant # lactic acidosis related to metformin use, not severe sepsis; resolved # HTN antihypertensives held on admission due to soft BP; metoprolol succinate resumed; continue to hold isosorbid mononitrate + torsemide # paroxysmal AF continue apixaban for stroke prevention continue metoprolol succinate + digoxin for rate control # DM2 with hyperglycemia + neuropathy hold MTF continue insuline glargine + empagliflozin, correction-dose lispro continue gabapentin + duloxetine # chronic hypoxic resp failure on home O2 4L # mild intermittent asthma without acute exacerbation prn nebs # seizure disorder continue phenytoin # chronic iron deficiency anemia Fe supplementation # mood disorder continue quetiapine, trazodone, duloxetine # VTE ppx: apixaban # dispo: awaiting STR placement the patient requires continued inpatient hospitalization for the following reas ons: STR placement Time Spent With Patient Time: Total time managing care of this patient today ____ minutes. Quality Stroke Does the patient have a stroke diagnosis?: No VTE Prior VTE?: No VTE Risk Level:: Medical - moderate - high VTE Device Contraindication: Treatment Not Indicated VTE Drug Contraindication: N/A - Med Ordered
[2022-07-15 11:33] LABS: Glucose, Whole Blood 168 mg/dL (60-115)
[2022-07-15 15:58] VITALS: BP 116/72; PULSE 93; RESP 20; TEMP 36.3; O2SAT 97
[2022-07-15 16:37] LABS: Glucose, Whole Blood 210 mg/dL (60-115)
[2022-07-15 19:43] VITALS: BP 102/59; PULSE 86; RESP 20; TEMP 36.6; O2SAT 98
[2022-07-15 20:08] LABS: Glucose, Whole Blood 227 mg/dL (60-115)
[2022-07-15] MEDS: Insulin Glargine,Hum.rec.anlog 100 UNIT/ML 10 ML VIAL 20 UNIT SUBCUT (20:15)
[2022-07-15] MEDS: Melatonin 3 MG TABLET 6 MG PO (20:15)
[2022-07-15] MEDS: traZODone HCL 100 MG TABLET PO (20:16)
[2022-07-15] MEDS: DULoxetine HCl 60 MG CAPSULE.DR PO (20:19)
[2022-07-15] MEDS: Phenytoin Sodium Extended 100 MG CAPSULE 400 MG PO (20:19)
[2022-07-16] MEDS: 0.9 % Sodium Chloride Flush 3 ML SYRINGE IVFLUSH ×4 (00:46→20:56)
[2022-07-16] MEDS: oxyCODONE HCl Immed Release 5 MG TABLET PO ×4 (02:36→20:59)
[2022-07-16] MEDS: LORazepam 1 MG TABLET 2 MG PO ×2 (02:36→17:06)
[2022-07-16 03:56] VITALS: BP 116/62; PULSE 114; RESP 20; TEMP 36.3; O2SAT 99
[2022-07-16] MEDS: Doxycycline Monohydrate 100 MG CAPSULE PO ×2 (05:46→17:03)
[2022-07-16] MEDS: Omeprazole 20 MG CAPSULE.DR PO (05:47)
[2022-07-16] MEDS: Gabapentin 400 MG CAPSULE PO ×5 (05:47→20:58)
[2022-07-16 07:04] VITALS: BP 110/69; PULSE 78; RESP 20; TEMP 36.6; O2SAT 96
[2022-07-16 07:27] LABS: Glucose, Whole Blood 221 mg/dL (60-115)
[2022-07-16] MEDS: Insulin Lispro 100 UNIT/ML 3 ML VIAL SUBCUT ×4 (08:13→20:56)
[2022-07-16] MEDS: Empagliflozin 10 MG TABLET PO (08:14)
[2022-07-16] MEDS: Acetaminophen 325 MG TABLET 650 MG PO ×2 (08:14→20:57)
[2022-07-16] MEDS: Cyanocobalamin (Vitamin B-12) 1,000 MCG TABLET 1000 MCG PO (08:14)
[2022-07-16] MEDS: Metoprolol Succinate ER 25 MG TAB.ER.24H 75 MG PO ×2 (08:14→20:58)
[2022-07-16] MEDS: Atorvastatin Calcium 80 MG TABLET PO (08:14)
[2022-07-16] MEDS: QUEtiapine Fumarate 200 MG TABLET PO ×2 (08:15→20:58)
[2022-07-16] MEDS: DULoxetine HCl 30 MG CAPSULE.DR PO (08:15)
[2022-07-16] MEDS: Ferrous Sulfate 324 MG TABLET.DR PO (08:15)
[2022-07-16] MEDS: Cholecalciferol (Vitamin D3) 25 MCG TABLET PO (08:15)
[2022-07-16] MEDS: Ascorbic Acid 250 MG TABLET PO (08:15)
[2022-07-16] MEDS: Apixaban 5 MG TABLET PO ×2 (08:15→20:58)
[2022-07-16] MEDS: Digoxin 0.125 MG TABLET PO (08:15)
[2022-07-16] MEDS: Phenytoin Sodium Extended 100 MG CAPSULE 300 MG PO (08:15)
[2022-07-16] MEDS: Fluticasone Propionate Nasal 16 GM SPRAY 1 SPRAY NOSTRIL-B ×2 (08:16→21:02)
[2022-07-16 10:32] VITALS: BP 110/69; PULSE 78; O2SAT 96
[2022-07-16 11:06] LABS: Glucose, Whole Blood 153 mg/dL (60-115)
--- NOTE | 2022-07-16 11:58 | HO.PM.IMPN ---
Subjective Subjective Date of Service: 07/16/22 Interval History: Seens and evaluated this morning feels more comfortable, dysurea much better Working with physical therapist, getting stronger on 4L O2 home dose no overnight events reported Review of Systems Review of Systems: Yes all other systems are reviewed and are negative Physical Exam Vital Signs: Vital Signs: Last Vital Signs Temp 98 F 07/16/22 07:04 Pulse 78 07/16/22 10:32 Resp 20 07/16/22 07:04 BP 110/69 07/16/22 10:32 Pulse Ox 96 07/16/22 10:32 O2 Del Method 07/16/22 07:04 O2 Flow Rate 4 07/16/22 03:56 Oxygen Flow Rate 4 07/08/22 02:29 BMI result Body Mass Index 47.5 Const: Other: Gen: alert, interactive, not in distress Neck: supple Lungs: clear to auscultation bilaterally Heart: irregularly irregular, no murmurs Abd: soft, non-tender, non-distended, obese Ext: no edema Skin: warm/dry Neuro: alert and oriented x3, no focal findings Psych: appropriate affect Objective Data Active Medications Acetaminophen (Acetaminophen 325 Mg Tablet) 650 mg PO BID [facility] Last Admin: 07/16/22 08:14 Dose: 650 mg Documented By: MAGDA Acetaminophen (Acetaminophen 325 Mg Tablet) 650 mg PO Q6H PRN PRN Reason: Pain, Mild (Pain Scale 1-3) Last Admin: 07/14/22 16:53 Dose: 650 mg Documented By: VARSHA Albuterol Sulfate (Albuterol Sulfate 90 Mcg 8 Gm Inhaler) 2 puff INHALE Q4H PRN PRN Reason: Shortness Of Breath Apixaban (Apixaban 5 Mg Tablet) 5 mg PO BID [facility] Last Admin: 07/16/22 08:15 Dose: 5 mg Documented By: MAGDA Ascorbic Acid (Ascorbic Acid 250 Mg Tablet) 250 mg PO DAILY [facility] Last Admin: 07/16/22 08:15 Dose: 250 mg Documented By: MAGDA Atorvastatin Calcium (Atorvastatin Calcium 80 Mg Tablet) 80 mg PO DAILY [facility] Last Admin: 07/16/22 08:14 Dose: 80 mg Documented By: MAGDA Cyanocobalamin (Cyanocobalamin (Vitamin B-12) 1,000 Mcg Tablet) 1,000 mcg PO DAILY [facility] Last Admin: 07/16/22 08:14 Dose: 1,000 mcg Documented By: MAGDA Dextrose (Dextrose 50 % 25 Gm/50 Ml Syringe) 25 gm IVPUSH Q15M PRN; Protocol PRN Reason: per Hypoglycemia Standing Ord. Digoxin (Digoxin 0.125 Mg Tablet) 0.125 mg PO Q48H [facility] Last Admin: 07/16/22 08:15 Dose: 0.125 mg Documented By: MAGDA Doxycycline Monohydrate (Doxycycline Monohydrate 100 Mg Capsule) 100 mg PO Q12H [facility] Stop: 07/26/22 06:01 Last Admin: 07/16/22 05:46 Dose: 100 mg Documented By: JOAQUIN Duloxetine HCl (Duloxetine Hcl 30 Mg Capsule.) 30 mg PO DAILY [facility] Last Admin: 07/16/22 08:15 Dose: 30 mg Documented By: MAGDA Duloxetine HCl (Duloxetine Hcl 60 Mg Capsule.) 60 mg PO BEDTIME [facility] Last Admin: 07/15/22 20:19 Dose: 60 mg Documented By: JOAQUIN Empagliflozin (Empagliflozin 10 Mg Tablet) 10 mg PO DAILY [facility] Last Admin: 07/16/22 08:14 Dose: 10 mg Documented By: MAGDA Ferrous Sulfate (Ferrous Sulfate 324 Mg Tablet.) 324 mg PO DAILY [facility] Last Admin: 07/16/22 08:15 Dose: 324 mg Documented By: MAGDA Fluticasone Propionate (Fluticasone Propionate Nasal 16 Gm [place]) 1 spray NOSTRIL-B BID [facility] Last Admin: 07/16/22 08:16 Dose: 1 spray Documented By: MAGDA Gabapentin (Gabapentin 400 Mg Capsule) 400 mg PO 5XD [facility] Last Admin: 07/16/22 08:14 Dose: 400 mg Documented By: MAGDA Glucose (Glucose Gel 15 Gm Gel..Gram.) 15 gm PO Q15M PRN; Protocol PRN Reason: per Hypoglycemia Standing Ord. Guaifenesin (Guaifenesin 100 Mg/5 Ml Liquid) 10 ml PO Q6H PRN PRN Reason: Cough Hydroxyzine HCl (Hydroxyzine Hcl 25 Mg Tablet) 25 mg PO TID PRN PRN Reason: Anxiety Last Admin: 07/15/22 20:19 Dose: 25 mg Documented By: JOAQUIN Insulin Glargine (Insulin Glargine,Hum.Rec.Anlog 100 Unit/Ml 10 Ml Vial) 20 unit SUBCUT BEDTIME [facility] Last Admin: 07/15/22 20:15 Dose: 20 unit Documented By: JOAQUIN Insulin Human Lispro (Insulin Lispro 100 Unit/Ml 3 Ml Vial) 0 unit SUBCUT QIDACHS [facility]; Protocol Last Admin: 07/16/22 08:13 Dose: 4 unit Documented By: MAGDA Lorazepam (Lorazepam 1 Mg Tablet) 2 mg PO TID PRN PRN Reason: Anxiety Last Admin: 07/16/22 02:36 Dose: 2 mg Documented By: JOAQUIN Melatonin (Melatonin 3 Mg Tablet) 6 mg PO BEDTIME PRN PRN Reason: Insomnia Last Admin: 07/15/22 20:15 Dose: 6 mg Documented By: JOAQUIN Metoprolol Succinate (Metoprolol Succinate Er 25 Mg Tab.Er.24h) 75 mg PO BID [facility]; Protocol Last Admin: 07/16/22 08:14 Dose: 75 mg Documented By: MAGDA Omeprazole (Omeprazole 20 Mg Capsule.Dr) 20 mg PO DAILY@0630 [facility] Last Admin: 07/16/22 05:47 Dose: 20 mg Documented By: JOAQUIN Ondansetron HCl (Ondansetron Hcl 4 Mg/2 Ml Vial) 4 mg IVPUSH Q8H PRN PRN Reason: Nausea and Vomiting Last Admin: 07/14/22 08:07 Dose: 4 mg Documented By: JANIA Oxycodone HCl (Oxycodone Hcl Immed Release 5 Mg Tablet) 5 mg PO Q4H PRN PRN Reason: Pain, Moderate (Pain Scale 4-6 Last Admin: 07/16/22 10:02 Dose: 5 mg Documented By: MAGDA Pharmacy Consult (Consult Rx Perform Med Rec) 1 each MISCELLANE ONCE PRN PRN Reason: Consult order Phenytoin Sodium (Phenytoin Sodium Extended 100 Mg Capsule) 300 mg PO DAILY [facility] Last Admin: 07/16/22 08:15 Dose: 300 mg Documented By: MAGDA Phenytoin Sodium (Phenytoin Sodium Extended 100 Mg Capsule) 400 mg PO BEDTIME [facility] Last Admin: 07/15/22 20:19 Dose: 400 mg Documented By: JOAQUIN Quetiapine Fumarate (Quetiapine Fumarate 100 Mg Tablet) 100 mg PO BEDTIME PRN PRN Reason: Insomnia Quetiapine Fumarate (Quetiapine Fumarate 200 Mg Tablet) 200 mg PO BID [facility] Last Admin: 07/16/22 08:15 Dose: 200 mg Documented By: MAGDA Sodium Chloride (0.9 % Sodium Chloride Flush 3 Ml Syringe) 3 ml IVFLUSH QSHIFT [facility] Last Admin: 07/16/22 08:14 Dose: 3 ml Documented By: MAGDA Trazodone HCl (Trazodone Hcl 100 Mg Tablet) 100 mg PO BEDTIME [facility] Last Admin: 07/15/22 20:16 Dose: 100 mg Documented By: JOAQUIN Vitamin D (Cholecalciferol (Vitamin D3) 25 Mcg Tablet) 25 mcg PO DAILY [facility] Last Admin: 07/16/22 08:15 Dose: 25 mcg Documented By: MAGDA Labs 07/13/22 07:43 07/13/22 07:43 Labs: Laboratory Results - last 24 hr 07/15/22 07/15/22 07/16/22 16:33 20:04 07:04 POC Glucose 210 H 227 H 221 H 07/16/22 11:02 POC Glucose 153 H Assessment and Plan (1) UTI (urinary tract infection): Status: Acute (2) Physical deconditioning: Status: Acute Plan A 62-year-old male with pertinent history of atrial fibrillation on Eliquis, insulin-dependent diabetes mellitus, mood disorder, morbid obesity, chronic pain with opioid use, who initially presented on 07/08/22 after mechanical fall and was kept as physician observation in the ER.? Pt admitted to hospital service for further management of MSSA UTI # MSSA UTI BCx negative, continue doxycycline 07/12-07/26 per ID credit consultant # physical deconditioning working with PT with increase exercise tolerance # lactic acidosis related to metformin use, not severe sepsis; resolved # HTN antihypertensives held on admission due to soft BP; metoprolol succinate resumed; continue to hold isosorbid mononitrate + torsemide # paroxysmal AF continue apixaban for stroke prevention continue metoprolol succinate + digoxin for rate control # DM2 with hyperglycemia + neuropathy hold MTF continue insuline glargine + empagliflozin, correction-dose lispro continue gabapentin + duloxetine # chronic hypoxic resp failure on home O2 4L # mild intermittent asthma without acute exacerbation prn nebs # seizure disorder continue phenytoin # chronic iron deficiency anemia Fe supplementation # mood disorder continue quetiapine, trazodone, duloxetine # VTE ppx: apixaban # dispo: awaiting STR placement the patient requires continued inpatient hospitalization for the following reasons: STR placement Time Spent With Patient Time: Total time managing care of this patient today ____ minutes. Quality Stroke Does the patient have a stroke diagnosis?: No VTE Prior VTE?: No VTE Risk Level:: Medical - moderate - high VTE Device Contraindication: Treatment Not Indicated VTE Drug Contraindication: N/A - Med Ordered
--- NOTE | 2022-07-16 14:53 | MHC.CM.PN ---
PT CONTINUES TO AWAIT STR PLACEMENT REFERRAL BROADCASTED NO BED OFFERS AT THIS TIME REFERRAL UPDATED/EXPANDED
[2022-07-16 15:25] VITALS: BP 122/62; PULSE 105; RESP 18; TEMP 37; O2SAT 99
[2022-07-16] MEDS: Phenazopyridine HCL 100 MG TABLET PO (16:05)
[2022-07-16 16:43] LABS: Glucose, Whole Blood 178 mg/dL (60-115)
[2022-07-16 20:04] VITALS: BP 113/74; PULSE 80; RESP 20; TEMP 36.5; O2SAT 97
[2022-07-16 20:11] LABS: Glucose, Whole Blood 238 mg/dL (60-115)
[2022-07-16] MEDS: Insulin Glargine,Hum.rec.anlog 100 UNIT/ML 10 ML VIAL 20 UNIT SUBCUT (20:57)
[2022-07-16] MEDS: traZODone HCL 100 MG TABLET PO (20:58)
[2022-07-16] MEDS: Phenytoin Sodium Extended 100 MG CAPSULE 400 MG PO (20:58)
[2022-07-16] MEDS: DULoxetine HCl 60 MG CAPSULE.DR PO (20:58)
[2022-07-17] MEDS: LORazepam 1 MG TABLET 2 MG PO ×3 (01:07→20:59)
[2022-07-17] MEDS: Gabapentin 400 MG CAPSULE PO ×5 (06:34→21:00)
[2022-07-17] MEDS: Doxycycline Monohydrate 100 MG CAPSULE PO ×2 (06:34→17:21)
[2022-07-17] MEDS: oxyCODONE HCl Immed Release 5 MG TABLET PO ×3 (06:34→18:20)
[2022-07-17] MEDS: Omeprazole 20 MG CAPSULE.DR PO (06:34)
[2022-07-17 07:06] VITALS: BP 111/62; PULSE 82; RESP 18; TEMP 36.6; O2SAT 94
[2022-07-17 07:32] LABS: Glucose, Whole Blood 113 mg/dL (60-115)
[2022-07-17] MEDS: Atorvastatin Calcium 80 MG TABLET PO (08:55)
[2022-07-17] MEDS: Acetaminophen 325 MG TABLET 650 MG PO ×2 (08:56→20:59)
[2022-07-17] MEDS: Cyanocobalamin (Vitamin B-12) 1,000 MCG TABLET 1000 MCG PO (08:58)
[2022-07-17] MEDS: Ferrous Sulfate 324 MG TABLET.DR PO (08:58)
[2022-07-17] MEDS: QUEtiapine Fumarate 200 MG TABLET PO ×2 (08:58→21:00)
[2022-07-17] MEDS: Phenytoin Sodium Extended 100 MG CAPSULE 300 MG PO (08:58)
[2022-07-17] MEDS: DULoxetine HCl 30 MG CAPSULE.DR PO (08:58)
[2022-07-17] MEDS: Apixaban 5 MG TABLET PO ×2 (08:58→21:00)
[2022-07-17] MEDS: Ascorbic Acid 250 MG TABLET PO (08:58)
[2022-07-17] MEDS: Empagliflozin 10 MG TABLET PO (08:58)
[2022-07-17] MEDS: Metoprolol Succinate ER 25 MG TAB.ER.24H 75 MG PO ×2 (08:59→20:58)
[2022-07-17] MEDS: 0.9 % Sodium Chloride Flush 3 ML SYRINGE IVFLUSH ×2 (08:59→17:20)
[2022-07-17] MEDS: Phenazopyridine HCL 100 MG TABLET PO ×3 (08:59→17:21)
[2022-07-17] MEDS: Cholecalciferol (Vitamin D3) 25 MCG TABLET PO (08:59)
[2022-07-17 10:39] LABS: Hematocrit 34.5 % (42.0-52.0); Hemoglobin 9.8 g/dl (14.0-18.0); Mean Corpuscular HGB Conc 28.4 g/dl (31.0-36.0); Mean Corpuscular Hemoglobin 22.7 pg (27.0-33.0); Mean Platelet Volume 10.5 fL (9.4-12.4); Platelet Count 331 X10*3/uL (160-400); Red Blood Count 4.31 X10*6/uL (4.60-5.80); Red Cell Distribution Width 20.7 % (11.0-16.0)
[2022-07-17 11:42] LABS: Glucose, Whole Blood 166 mg/dL (60-115)
[2022-07-17] MEDS: Insulin Lispro 100 UNIT/ML 3 ML VIAL SUBCUT ×3 (12:11→21:00)
--- NOTE | 2022-07-17 13:23 | HO.PM.IMPN ---
Subjective Subjective Date of Service: 07/17/22 Interval History: Seens and evaluated this morning Complaining of left lower quadrant pain Dysuria resolving On baseline 4 L of home oxygen no overnight events reported Review of Systems Review of Systems: Yes all other systems are reviewed and are negative Physical Exam Vital Signs: Vital Signs: Last Vital Signs Temp 98 F 07/17/22 07:06 Pulse 82 07/17/22 07:06 Resp 18 07/17/22 07:06 BP 111/62 07/17/22 07:06 Pulse Ox 94 07/17/22 07:06 O2 Del Method 07/17/22 07:06 O2 Flow Rate 2 07/17/22 07:06 Oxygen Flow Rate 4 07/08/22 02:29 BMI result Body Mass Index 47.5 Const: Other: Gen: alert, interactive, not in distress Neck: supple Lungs: clear to auscultation bilaterally Heart: irregularly irregular, no murmurs Abd: soft, non-distended, obese, mild left lower quadrant tenderness with no evidence of surgical signs Ext: no edema Skin: warm/dry Neuro: alert and oriented x3, no focal findings Psych: appropriate affect Objective Data Active Medications Acetaminophen (Acetaminophen 325 Mg Tablet) 650 mg PO BID [facility] Last Admin: 07/17/22 08:56 Dose: 650 mg Documented By: REGINALD Acetaminophen (Acetaminophen 325 Mg Tablet) 650 mg PO Q6H PRN PRN Reason: Pain, Mild (Pain Scale 1-3) Last Admin: 07/14/22 16:53 Dose: 650 mg Documented By: VARSHA Albuterol Sulfate (Albuterol Sulfate 90 Mcg 8 Gm Inhaler) 2 puff INHALE Q4H PRN PRN Reason: Shortness Of Breath Apixaban (Apixaban 5 Mg Tablet) 5 mg PO BID [facility] Last Admin: 07/17/22 08:58 Dose: 5 mg Documented By: REGINALD Ascorbic Acid (Ascorbic Acid 250 Mg Tablet) 250 mg PO DAILY [facility] Last Admin: 07/17/22 08:58 Dose: 250 mg Documented By: REGINALD Atorvastatin Calcium (Atorvastatin Calcium 80 Mg Tablet) 80 mg PO DAILY [facility] Last Admin: 07/17/22 08:55 Dose: 80 mg Documented By: REGINALD Cyanocobalamin (Cyanocobalamin (Vitamin B-12) 1,000 Mcg Tablet) 1,000 mcg PO DAILY [facility] Last Admin: 07/17/22 08:58 Dose: 1,000 mcg Documented By: REGINALD Dextrose (Dextrose 50 % 25 Gm/50 Ml Syringe) 25 gm IVPUSH Q15M PRN; Protocol PRN Reason: per Hypoglycemia Standing Ord. Digoxin (Digoxin 0.125 Mg Tablet) 0.125 mg PO Q48H [facility] Last Admin: 07/16/22 08:15 Dose: 0.125 mg Documented By: MAGDA Doxycycline Monohydrate (Doxycycline Monohydrate 100 Mg Capsule) 100 mg PO Q12H [facility] Stop: 07/26/22 06:01 Last Admin: 07/17/22 06:34 Dose: 100 mg Documented By: RISSA Duloxetine HCl (Duloxetine Hcl 30 Mg Capsule.) 30 mg PO DAILY [facility] Last Admin: 07/17/22 08:58 Dose: 30 mg Documented By: REGINALD Duloxetine HCl (Duloxetine Hcl 60 Mg Capsule.) 60 mg PO BEDTIME [facility] Last Admin: 07/16/22 20:58 Dose: 60 mg Documented By: RISSA Empagliflozin (Empagliflozin 10 Mg Tablet) 10 mg PO DAILY [facility] Last Admin: 07/17/22 08:58 Dose: 10 mg Documented By: REGINALD Ferrous Sulfate (Ferrous Sulfate 324 Mg Tablet.) 324 mg PO DAILY [facility] Last Admin: 07/17/22 08:58 Dose: 324 mg Documented By: REGINALD Fluticasone Propionate (Fluticasone Propionate Nasal 16 Gm [place]) 1 spray NOSTRIL-B BID [facility] Last Admin: 07/17/22 10:44 Dose: Not Given Documented By: REGINALD Non-Admin Reason: Patient Refused Gabapentin (Gabapentin 400 Mg Capsule) 400 mg PO 5XD [facility] Last Admin: 07/17/22 08:58 Dose: 400 mg Documented By: REGINALD Glucose (Glucose Gel 15 Gm Gel..Gram.) 15 gm PO Q15M PRN; Protocol PRN Reason: per Hypoglycemia Standing Ord. Guaifenesin (Guaifenesin 100 Mg/5 Ml Liquid) 10 ml PO Q6H PRN PRN Reason: Cough Hydroxyzine HCl (Hydroxyzine Hcl 25 Mg Tablet) 25 mg PO TID PRN PRN Reason: Anxiety Last Admin: 07/15/22 20:19 Dose: 25 mg Documented By: JOAQUIN Insulin Glargine (Insulin Glargine,Hum.Rec.Anlog 100 Unit/Ml 10 Ml Vial) 20 unit SUBCUT BEDTIME [facility] Last Admin: 07/16/22 20:57 Dose: 20 unit Documented By: RISSA Insulin Human Lispro (Insulin Lispro 100 Unit/Ml 3 Ml Vial) 0 unit SUBCUT QIDACHS [facility]; Protocol Last Admin: 07/17/22 12:11 Dose: 2 unit Documented By: REGINALD Lorazepam (Lorazepam 1 Mg Tablet) 2 mg PO TID PRN PRN Reason: Anxiety Last Admin: 07/17/22 12:17 Dose: 2 mg Documented By: REGINALD Melatonin (Melatonin 3 Mg Tablet) 6 mg PO BEDTIME PRN PRN Reason: Insomnia Last Admin: 07/15/22 20:15 Dose: 6 mg Documented By: JOAQUIN Metoprolol Succinate (Metoprolol Succinate Er 25 Mg Tab.Er.24h) 75 mg PO BID [facility]; Protocol Last Admin: 07/17/22 08:59 Dose: 75 mg Documented By: REGINALD Omeprazole (Omeprazole 20 Mg Capsule.) 20 mg PO DAILY@0630 [facility] Last Admin: 07/17/22 06:34 Dose: 20 mg Documented By: RISSA Ondansetron HCl (Ondansetron Hcl 4 Mg/2 Ml Vial) 4 mg IVPUSH Q8H PRN PRN Reason: Nausea and Vomiting Last Admin: 07/14/22 08:07 Dose: 4 mg Documented By: JANIA Oxycodone HCl (Oxycodone Hcl Immed Release 5 Mg Tablet) 5 mg PO Q4H PRN PRN Reason: Pain, Moderate (Pain Scale 4-6 Last Admin: 07/17/22 12:10 Dose: 5 mg Documented By: REGINALD Pharmacy Consult (Consult Rx Perform Med Rec) 1 each MISCELLANE ONCE PRN PRN Reason: Consult order Phenazopyridine HCl (Phenazopyridine Hcl 100 Mg Tablet) 100 mg PO TIDWM [facility] Stop: 07/18/22 08:01 Last Admin: 07/17/22 12:09 Dose: 100 mg Documented By: REGINALD Phenytoin Sodium (Phenytoin Sodium Extended 100 Mg Capsule) 300 mg PO DAILY [facility] Last Admin: 07/17/22 08:58 Dose: 300 mg Documented By: REGINALD Phenytoin Sodium (Phenytoin Sodium Extended 100 Mg Capsule) 400 mg PO BEDTIME [facility] Last Admin: 07/16/22 20:58 Dose: 400 mg Documented By: RISSA Quetiapine Fumarate (Quetiapine Fumarate 100 Mg Tablet) 100 mg PO BEDTIME PRN PRN Reason: Insomnia Quetiapine Fumarate (Quetiapine Fumarate 200 Mg Tablet) 200 mg PO BID [facility] Last Admin: 07/17/22 08:58 Dose: 200 mg Documented By: REGINALD Sodium Chloride (0.9 % Sodium Chloride Flush 3 Ml Syringe) 3 ml IVFLUSH QSHIFT [facility] Last Admin: 07/17/22 08:59 Dose: 3 ml Documented By: REGINALD Trazodone HCl (Trazodone Hcl 100 Mg Tablet) 100 mg PO BEDTIME [facility] Last Admin: 07/16/22 20:58 Dose: 100 mg Documented By: RISSA Vitamin D (Cholecalciferol (Vitamin D3) 25 Mcg Tablet) 25 mcg PO DAILY [facility] Last Admin: 07/17/22 08:59 Dose: 25 mcg Documented By: REGINALD Labs 07/17/22 10:23 07/13/22 07:43 Labs: Laboratory Results - last 24 hr 07/16/22 07/16/22 07/17/22 16:39 19:48 07:06 MCV MCH MCHC RDW Plt Count MPV Absolute Nucleated RBC Nucleated RBC % (auto) POC Glucose 178 H 238 H 113 07/17/22 07/17/22 10:23 11:39 MCV 80.0 MCH 22.7 L MCHC 28.4 L RDW 20.7 H Plt Count 331 MPV 10.5 Absolute Nucleated RBC 0.000 Nucleated RBC % (auto) 0.0 POC Glucose 166 H Microbiology Microbiology Results: Microbiology 07/11/22 21:40 Blood Culture - Final Blood - Venous No growth after 5 days. 07/11/22 21:40 Blood Culture - Final Blood - Venous No growth after 5 days. Assessment and Plan (1) Physical deconditioning: Status: Acute (2) UTI (urinary tract infection): Status: Acute Plan A 62-year-old male with pertinent history of atrial fibrillation on Eliquis, insulin-dependent diabetes mellitus, mood disorder, morbid obesity, chronic pain with opioid use, who initially presented on 07/08/22 after mechanical fall and was kept as physician observation in the ER.? Pt admitted to hospital service for further management of MSSA UTI # MSSA UTI BCx negative, continue doxycycline 07/12-07/26 per ID cycle consultant # left lower quadrant pain CT scan showing stool burden Start lactulose and Colace # physical deconditioning working with PT with increase exercise tolerance # lactic acidosis related to metformin use, not severe sepsis; resolved # HTN antihypertensives held on admission due to soft BP; metoprolol succinate resumed; continue to hold isosorbid mononitrate + torsemide # paroxysmal AF continue apixaban for stroke prevention continue metoprolol succinate + digoxin for rate control # DM2 with hyperglycemia + neuropathy hold MTF continue insuline glargine + empagliflozin, correction-dose lispro continue gabapentin + duloxetine # chronic hypoxic resp failure on home O2 4L # mild intermittent asthma without acute exacerbation prn nebs # seizure disorder continue phenytoin # chronic iron deficiency anemia Fe supplementation # mood disorder continue quetiapine, trazodone, duloxetine # VTE ppx: apixaban # dispo: awaiting STR placement the patient requires continued inpatient hospitalization for the following reasons: STR placement Time Spent With Patient Time: Total time managing care of this patient today ____ minutes. Quality Stroke Does the patient have a stroke diagnosis?: No VTE Prior VTE?: No VTE Risk Level:: Medical - moderate - high VTE Device Contraindication: Treatment Not Indicated VTE Drug Contraindication: N/A - Med Ordered
[2022-07-17] MEDS: Docusate Sodium 100 MG CAPSULE PO ×2 (14:50→21:00)
[2022-07-17] MEDS: Lactulose 20 GM/30 ML SOLUTION PO ×2 (14:51→20:57)
[2022-07-17 15:01] VITALS: BP 115/64; PULSE 18; RESP 18; TEMP 37.1; O2SAT 98
[2022-07-17 16:26] LABS: Glucose, Whole Blood 161 mg/dL (60-115)
--- NOTE | 2022-07-17 18:30 | PC.NURSE ---
Pt AxOx4 denies chest pain, headache but c/o pain when he urinate and LLQ . Pt took meds for pain and reposition, Pt will continue to be monitored.
[2022-07-17 18:51] VITALS: BP 120/56; PULSE 84; RESP 18; TEMP 37; O2SAT 96
[2022-07-17 20:14] LABS: Glucose, Whole Blood 170 mg/dL (60-115)
[2022-07-17] MEDS: Melatonin 3 MG TABLET 6 MG PO (20:58)
[2022-07-17] MEDS: traZODone HCL 100 MG TABLET PO (21:00)
[2022-07-17] MEDS: DULoxetine HCl 60 MG CAPSULE.DR PO (21:00)
[2022-07-17] MEDS: Insulin Glargine,Hum.rec.anlog 100 UNIT/ML 10 ML VIAL 20 UNIT SUBCUT (21:00)
[2022-07-17] MEDS: Phenytoin Sodium Extended 100 MG CAPSULE 400 MG PO (21:02)
[2022-07-17] MEDS: Fluticasone Propionate Nasal 16 GM SPRAY 1 SPRAY NOSTRIL-B (21:13)
--- NOTE | 2022-07-17 21:29 | MHC.PIE ---
p; pt iv outdated and stained. iv site dc'd. note; pt medically cleared and awaiting placement i; dr newberry notified. ok to keep iv out e; will cont to monitor
[2022-07-18 04:00] VITALS: BP 109/56; PULSE 72; RESP 18; TEMP 36.1; O2SAT 93
[2022-07-18] MEDS: Omeprazole 20 MG CAPSULE.DR PO (06:22)
[2022-07-18] MEDS: Gabapentin 400 MG CAPSULE PO ×5 (06:22→21:30)
[2022-07-18] MEDS: Doxycycline Monohydrate 100 MG CAPSULE PO ×2 (06:22→17:09)
[2022-07-18] MEDS: oxyCODONE HCl Immed Release 5 MG TABLET PO ×3 (06:22→21:32)
[2022-07-18 07:23] VITALS: BP 104/56; PULSE 73; RESP 19; TEMP 36.7; O2SAT 97
[2022-07-18 07:45] LABS: Glucose, Whole Blood 123 mg/dL (60-115)
[2022-07-18] MEDS: DULoxetine HCl 30 MG CAPSULE.DR PO (08:10)
[2022-07-18] MEDS: QUEtiapine Fumarate 200 MG TABLET PO ×2 (08:10→21:31)
[2022-07-18] MEDS: Lactulose 20 GM/30 ML SOLUTION PO ×2 (08:10→21:34)
[2022-07-18] MEDS: Docusate Sodium 100 MG CAPSULE PO ×2 (08:11→21:32)
[2022-07-18] MEDS: Apixaban 5 MG TABLET PO ×2 (08:11→21:33)
[2022-07-18] MEDS: Atorvastatin Calcium 80 MG TABLET PO (08:11)
[2022-07-18] MEDS: Digoxin 0.125 MG TABLET PO (08:11)
[2022-07-18] MEDS: Empagliflozin 10 MG TABLET PO (08:11)
[2022-07-18] MEDS: Acetaminophen 325 MG TABLET 650 MG PO ×2 (08:12→21:31)
[2022-07-18] MEDS: Ferrous Sulfate 324 MG TABLET.DR PO (08:12)
[2022-07-18] MEDS: Phenazopyridine HCL 100 MG TABLET PO (08:12)
[2022-07-18] MEDS: Ascorbic Acid 250 MG TABLET PO (08:13)
[2022-07-18] MEDS: Cholecalciferol (Vitamin D3) 25 MCG TABLET PO (08:13)
[2022-07-18] MEDS: Cyanocobalamin (Vitamin B-12) 1,000 MCG TABLET 1000 MCG PO (08:13)
[2022-07-18] MEDS: LORazepam 1 MG TABLET 2 MG PO ×2 (08:22→21:32)
--- NOTE | 2022-07-18 09:42 | HO.PM.IMPN ---
Subjective Subjective Date of Service: 07/18/22 Interval History: Seens and evaluated this morning improved left lower quadrant pain, had constipation on CT Dysuria resolving On baseline 4 L of home oxygen no overnight events reported Review of Systems Review of Systems: Yes all other systems are reviewed and are negative Physical Exam Vital Signs: Vital Signs: Last Vital Signs Temp 98.1 F 07/18/22 07:23 Pulse 73 07/18/22 07:23 Resp 19 07/18/22 07:23 BP 104/56 L 07/18/22 07:23 Pulse Ox 97 07/18/22 07:23 O2 Del Method 07/18/22 07:23 O2 Flow Rate 3.0 07/18/22 07:23 Oxygen Flow Rate 4 07/08/22 02:29 BMI result Body Mass Index 47.5 Const: Other: Gen: alert, interactive, not in distress Neck: supple Lungs: clear to auscultation bilaterally Heart: irregularly irregular, no murmurs Abd: soft, non-distended, obese, mild left lower quadrant tenderness with no evidence of surgical signs Ext: no edema Skin: warm/dry Neuro: alert and oriented x3, no focal findings Psych: appropriate affect Objective Data Active Medications Acetaminophen (Acetaminophen 325 Mg Tablet) 650 mg PO BID [facility] Last Admin: 07/18/22 08:12 Dose: 650 mg Documented By: VARSHA Acetaminophen (Acetaminophen 325 Mg Tablet) 650 mg PO Q6H PRN PRN Reason: Pain, Mild (Pain Scale 1-3) Last Admin: 07/14/22 16:53 Dose: 650 mg Documented By: VARSHA Albuterol Sulfate (Albuterol Sulfate 90 Mcg 8 Gm Inhaler) 2 puff INHALE Q4H PRN PRN Reason: Shortness Of Breath Apixaban (Apixaban 5 Mg Tablet) 5 mg PO BID [facility] Last Admin: 07/18/22 08:11 Dose: 5 mg Documented By: VARSHA Ascorbic Acid (Ascorbic Acid 250 Mg Tablet) 250 mg PO DAILY [facility] Last Admin: 07/18/22 08:13 Dose: 250 mg Documented By: VARSHA Atorvastatin Calcium (Atorvastatin Calcium 80 Mg Tablet) 80 mg PO DAILY [facility] Last Admin: 07/18/22 08:11 Dose: 80 mg Documented By: VARSHA Cyanocobalamin (Cyanocobalamin (Vitamin B-12) 1,000 Mcg Tablet) 1,000 mcg PO DAILY [facility] Last Admin: 07/18/22 08:13 Dose: 1,000 mcg Documented By: VARSHA Dextrose (Dextrose 50 % 25 Gm/50 Ml Syringe) 25 gm IVPUSH Q15M PRN; Protocol PRN Reason: per Hypoglycemia Standing Ord. Digoxin (Digoxin 0.125 Mg Tablet) 0.125 mg PO Q48H [facility] Last Admin: 07/18/22 08:11 Dose: 0.125 mg Documented By: VARSHA Docusate Sodium (Docusate Sodium 100 Mg Capsule) 100 mg PO BID [facility] Last Admin: 07/18/22 08:11 Dose: 100 mg Documented By: VARSHA Doxycycline Monohydrate (Doxycycline Monohydrate 100 Mg Capsule) 100 mg PO Q12H [facility] Stop: 07/26/22 06:01 Last Admin: 07/18/22 06:22 Dose: 100 mg Documented By: RISSA Duloxetine HCl (Duloxetine Hcl 30 Mg Capsule.) 30 mg PO DAILY [facility] Last Admin: 07/18/22 08:10 Dose: 30 mg Documented By: VARSHA Duloxetine HCl (Duloxetine Hcl 60 Mg Capsule.) 60 mg PO BEDTIME [facility] Last Admin: 07/17/22 21:00 Dose: 60 mg Documented By: RISSA Empagliflozin (Empagliflozin 10 Mg Tablet) 10 mg PO DAILY [facility] Last Admin: 07/18/22 08:11 Dose: 10 mg Documented By: VARSHA Ferrous Sulfate (Ferrous Sulfate 324 Mg Tablet.) 324 mg PO DAILY [facility] Last Admin: 07/18/22 08:12 Dose: 324 mg Documented By: VARSHA Fluticasone Propionate (Fluticasone Propionate Nasal 16 Gm [place]) 1 spray NOSTRIL-B BID [facility] Last Admin: 07/17/22 21:13 Dose: 1 spray Documented By: RISSA Gabapentin (Gabapentin 400 Mg Capsule) 400 mg PO 5XD [facility] Last Admin: 07/18/22 06:22 Dose: 400 mg Documented By: RISSA Glucose (Glucose Gel 15 Gm Gel..Gram.) 15 gm PO Q15M PRN; Protocol PRN Reason: per Hypoglycemia Standing Ord. Guaifenesin (Guaifenesin 100 Mg/5 Ml Liquid) 10 ml PO Q6H PRN PRN Reason: Cough Hydroxyzine HCl (Hydroxyzine Hcl 25 Mg Tablet) 25 mg PO TID PRN PRN Reason: Anxiety Last Admin: 07/15/22 20:19 Dose: 25 mg Documented By: JOAQUIN Insulin Glargine (Insulin Glargine,Hum.Rec.Anlog 100 Unit/Ml 10 Ml Vial) 20 unit SUBCUT BEDTIME [facility] Last Admin: 07/17/22 21:00 Dose: 20 unit Documented By: RISSA Insulin Human Lispro (Insulin Lispro 100 Unit/Ml 3 Ml Vial) 0 unit SUBCUT QIDACHS [facility]; Protocol Last Admin: 07/18/22 09:38 Dose: Not Given Documented By: VARSHA Non-Admin Reason: No Insulin Coverage Lactulose (Lactulose 20 Gm/30 Ml Solution) 20 gm PO BID [facility] Last Admin: 07/18/22 08:10 Dose: 20 gm Documented By: VARSHA Lorazepam (Lorazepam 1 Mg Tablet) 2 mg PO TID PRN PRN Reason: Anxiety Last Admin: 07/18/22 08:22 Dose: 2 mg Documented By: VARSHA Melatonin (Melatonin 3 Mg Tablet) 6 mg PO BEDTIME PRN PRN Reason: Insomnia Last Admin: 07/17/22 20:58 Dose: 6 mg Documented By: RISSA Metoprolol Succinate (Metoprolol Succinate Er 25 Mg Tab.Er.24h) 75 mg PO BID [facility]; Protocol Last Admin: 07/17/22 20:58 Dose: 75 mg Documented By: RISSA Omeprazole (Omeprazole 20 Mg Capsule.Dr) 20 mg PO DAILY@0630 [facility] Last Admin: 07/18/22 06:22 Dose: 20 mg Documented By: RISSA Ondansetron HCl (Ondansetron Hcl 4 Mg/2 Ml Vial) 4 mg IVPUSH Q8H PRN PRN Reason: Nausea and Vomiting Last Admin: 07/14/22 08:07 Dose: 4 mg Documented By: JANIA Oxycodone HCl (Oxycodone Hcl Immed Release 5 Mg Tablet) 5 mg PO Q4H PRN PRN Reason: Pain, Moderate (Pain Scale 4-6 Last Admin: 07/18/22 06:22 Dose: 5 mg Documented By: RISSA Pharmacy Consult (Consult Rx Perform Med Rec) 1 each MISCELLANE ONCE PRN PRN Reason: Consult order Phenytoin Sodium (Phenytoin Sodium Extended 100 Mg Capsule) 300 mg PO DAILY [facility] Last Admin: 07/17/22 08:58 Dose: 300 mg Documented By: REGINALD Phenytoin Sodium (Phenytoin Sodium Extended 100 Mg Capsule) 400 mg PO BEDTIME [facility] Last Admin: 07/17/22 21:02 Dose: 400 mg Documented By: RISSA Quetiapine Fumarate (Quetiapine Fumarate 100 Mg Tablet) 100 mg PO BEDTIME PRN PRN Reason: Insomnia Quetiapine Fumarate (Quetiapine Fumarate 200 Mg Tablet) 200 mg PO BID [facility] Last Admin: 07/18/22 08:10 Dose: 200 mg Documented By: VARSHA Sodium Chloride (0.9 % Sodium Chloride Flush 3 Ml Syringe) 3 ml IVFLUSH QSHIFT [facility] Last Admin: 07/18/22 09:38 Dose: Not Given Documented By: VARSHA Non-Admin Reason: No Access Trazodone HCl (Trazodone Hcl 100 Mg Tablet) 100 mg PO BEDTIME [facility] Last Admin: 07/17/22 21:00 Dose: 100 mg Documented By: RISSA Vitamin D (Cholecalciferol (Vitamin D3) 25 Mcg Tablet) 25 mcg PO DAILY [facility] Last Admin: 07/18/22 08:13 Dose: 25 mcg Documented By: VARSHA Labs 07/17/22 10:23 07/13/22 07:43 Labs: Laboratory Results - last 24 hr 07/17/22 07/17/22 07/17/22 10:23 11:39 16:06 MCV 80.0 MCH 22.7 L MCHC 28.4 L RDW 20.7 H Plt Count 331 MPV 10.5 Absolute Nucleated RBC 0.000 Nucleated RBC % (auto) 0.0 POC Glucose 166 H 161 H 07/17/22 07/18/22 18:53 07:23 MCV MCH MCHC RDW Plt Count MPV Absolute Nucleated RBC Nucleated RBC % (auto) POC Glucose 170 H 123 H Assessment and Plan (1) Physical deconditioning: Status: Acute (2) UTI (urinary tract infection): Status: Acute Plan A 62-year-old male with pertinent history of atrial fibrillation on Eliquis, insulin-dependent diabetes mellitus, mood disorder, morbid obesity, chronic pain with opioid use, who initially presented on 07/08/22 after mechanical fall and was kept as physician observation in the ER.? Pt admitted to hospital service for further management of MSSA UTI # MSSA UTI BCx negative, continue doxycycline 07/12-07/26 per ID event management consultant # left lower quadrant pain CT scan showing stool burden continue lactulose and Colace # physical deconditioning working with PT with increase exercise tolerance # lactic acidosis related to metformin use, not severe sepsis; resolved # HTN antihypertensives held on admission due to soft BP; metoprolol succinate resumed; continue to hold isosorbid mononitrate + torsemide # paroxysmal AF continue apixaban for stroke prevention continue metoprolol succinate + digoxin for rate control # DM2 with hyperglycemia + neuropathy hold MTF continue insuline glargine + empagliflozin, correction-dose lispro continue gabapentin + duloxetine # chronic hypoxic resp failure on home O2 4L # mild intermittent asthma without acute exacerbation prn nebs # seizure disorder continue phenytoin # chronic iron deficiency anemia Fe supplementation # mood disorder continue quetiapine, trazodone, duloxetine # VTE ppx: apixaban # dispo: awaiting STR placement the patient requires continued inpatient hospitalization for the following reasons: STR placement Time Spent With Patient Time: Total time managing care of this patient today ____ minutes. Quality Stroke Does the patient have a stroke diagnosis?: No VTE Prior VTE?: No VTE Risk Level:: Medical - moderate - high VTE Device Contraindication: Treatment Not Indicated VTE Drug Contraindication: N/A - Med Ordered
[2022-07-18] MEDS: Phenytoin Sodium Extended 100 MG CAPSULE 300 MG PO (10:13)
[2022-07-18] MEDS: Metoprolol Succinate ER 25 MG TAB.ER.24H 75 MG PO ×2 (10:14→21:34)
[2022-07-18] MEDS: Fluticasone Propionate Nasal 16 GM SPRAY 1 SPRAY NOSTRIL-B ×2 (10:15→21:35)
[2022-07-18 11:57] LABS: Glucose, Whole Blood 144 mg/dL (60-115)
[2022-07-18 16:00] VITALS: BP 136/88; PULSE 73; RESP 18; TEMP 37.1; O2SAT 94
[2022-07-18 16:26] LABS: Glucose, Whole Blood 171 mg/dL (60-115)
[2022-07-18 17:00] LABS: Glucose, Whole Blood 158 mg/dL (60-115)
[2022-07-18] MEDS: Insulin Lispro 100 UNIT/ML 3 ML VIAL SUBCUT ×2 (17:08→21:34)
[2022-07-18] MEDS: 0.9 % Sodium Chloride Flush 3 ML SYRINGE IVFLUSH (17:09)
[2022-07-18 19:50] VITALS: BP 119/80; PULSE 98; RESP 18; TEMP 37; O2SAT 98
[2022-07-18 20:23] LABS: Glucose, Whole Blood 192 mg/dL (60-115)
[2022-07-18] MEDS: Melatonin 3 MG TABLET 6 MG PO (21:30)
[2022-07-18] MEDS: DULoxetine HCl 60 MG CAPSULE.DR PO (21:33)
[2022-07-18] MEDS: traZODone HCL 100 MG TABLET PO (21:33)
[2022-07-18] MEDS: Phenytoin Sodium Extended 100 MG CAPSULE 400 MG PO (21:33)
[2022-07-18] MEDS: Insulin Glargine,Hum.rec.anlog 100 UNIT/ML 10 ML VIAL 20 UNIT SUBCUT (21:34)
[2022-07-19] MEDS: Omeprazole 20 MG CAPSULE.DR PO (06:52)
[2022-07-19] MEDS: Gabapentin 400 MG CAPSULE PO ×5 (06:53→20:50)
[2022-07-19] MEDS: Doxycycline Monohydrate 100 MG CAPSULE PO ×2 (06:53→17:31)
[2022-07-19 06:55] VITALS: BP 116/63; PULSE 76; RESP 19; TEMP 36.6; O2SAT 96
[2022-07-19 07:19] LABS: Glucose, Whole Blood 91 mg/dL (60-115)
[2022-07-19] MEDS: QUEtiapine Fumarate 200 MG TABLET PO ×2 (07:51→20:50)
[2022-07-19] MEDS: Lactulose 20 GM/30 ML SOLUTION PO (07:51)
[2022-07-19] MEDS: Metoprolol Succinate ER 25 MG TAB.ER.24H 75 MG PO ×2 (07:51→20:48)
[2022-07-19] MEDS: Docusate Sodium 100 MG CAPSULE PO ×2 (07:51→20:49)
[2022-07-19] MEDS: DULoxetine HCl 30 MG CAPSULE.DR PO (07:51)
[2022-07-19] MEDS: Atorvastatin Calcium 80 MG TABLET PO (07:51)
[2022-07-19] MEDS: Acetaminophen 325 MG TABLET 650 MG PO ×2 (07:52→20:48)
[2022-07-19] MEDS: Cyanocobalamin (Vitamin B-12) 1,000 MCG TABLET 1000 MCG PO (07:52)
[2022-07-19] MEDS: Apixaban 5 MG TABLET PO ×2 (07:52→20:49)
[2022-07-19] MEDS: Phenytoin Sodium Extended 100 MG CAPSULE 300 MG PO (07:52)
[2022-07-19] MEDS: Empagliflozin 10 MG TABLET PO (07:53)
[2022-07-19] MEDS: Cholecalciferol (Vitamin D3) 25 MCG TABLET PO (07:53)
[2022-07-19] MEDS: Ascorbic Acid 250 MG TABLET PO (07:53)
[2022-07-19] MEDS: Fluticasone Propionate Nasal 16 GM SPRAY 1 SPRAY NOSTRIL-B ×2 (07:54→20:54)
[2022-07-19] MEDS: oxyCODONE HCl Immed Release 5 MG TABLET PO ×3 (07:57→18:54)
[2022-07-19] MEDS: LORazepam 1 MG TABLET 2 MG PO ×2 (07:58→20:49)
[2022-07-19 11:07] LABS: Glucose, Whole Blood 133 mg/dL (60-115)
--- NOTE | 2022-07-19 12:17 | HO.PM.IMPN ---
Subjective Subjective Date of Service: 07/19/22 Interval History: Seens and evaluated this morning Dysuria resolving On baseline 4 L of home oxygen no overnight events reported Review of Systems Review of Systems: Yes all other systems are reviewed and are negative Physical Exam Vital Signs: Vital Signs: Last Vital Signs Temp 98 F 07/19/22 06:55 Pulse 76 07/19/22 06:55 Resp 19 07/19/22 06:55 BP 116/63 07/19/22 06:55 Pulse Ox 96 07/19/22 06:55 O2 Del Method 07/19/22 06:55 O2 Flow Rate 2 07/19/22 06:55 Oxygen Flow Rate 4 07/08/22 02:29 BMI result Body Mass Index 47.5 Const: Other: Gen: alert, interactive, not in distress Neck: supple Lungs: clear to auscultation bilaterally Heart: irregularly irregular, no murmurs Abd: soft, non-distended, obese, mild left lower quadrant tenderness with no evidence of surgical signs Ext: no edema Skin: warm/dry Neuro: alert and oriented x3, no focal findings Psych: appropriate affect Objective Data Active Medications Acetaminophen (Acetaminophen 325 Mg Tablet) 650 mg PO BID [facility] Last Admin: 07/19/22 07:52 Dose: 650 mg Documented By: HUGO Acetaminophen (Acetaminophen 325 Mg Tablet) 650 mg PO Q6H PRN PRN Reason: Pain, Mild (Pain Scale 1-3) Last Admin: 07/14/22 16:53 Dose: 650 mg Documented By: MAYRAENOYURY Albuterol Sulfate (Albuterol Sulfate 90 Mcg 8 Gm Inhaler) 2 puff INHALE Q4H PRN PRN Reason: Shortness Of Breath Apixaban (Apixaban 5 Mg Tablet) 5 mg PO BID [facility] Last Admin: 07/19/22 07:52 Dose: 5 mg Documented By: HUGO Ascorbic Acid (Ascorbic Acid 250 Mg Tablet) 250 mg PO DAILY [facility] Last Admin: 07/19/22 07:53 Dose: 250 mg Documented By: HUGO Atorvastatin Calcium (Atorvastatin Calcium 80 Mg Tablet) 80 mg PO DAILY [facility] Last Admin: 07/19/22 07:51 Dose: 80 mg Documented By: HUGO Cyanocobalamin (Cyanocobalamin (Vitamin B-12) 1,000 Mcg Tablet) 1,000 mcg PO DAILY [facility] Last Admin: 07/19/22 07:52 Dose: 1,000 mcg Documented By: HUGO Dextrose (Dextrose 50 % 25 Gm/50 Ml Syringe) 25 gm IVPUSH Q15M PRN; Protocol PRN Reason: per Hypoglycemia Standing Ord. Digoxin (Digoxin 0.125 Mg Tablet) 0.125 mg PO Q48H [facility] Last Admin: 07/18/22 08:11 Dose: 0.125 mg Documented By: VARSHA Docusate Sodium (Docusate Sodium 100 Mg Capsule) 100 mg PO BID [facility] Last Admin: 07/19/22 07:51 Dose: 100 mg Documented By: HUGO Doxycycline Monohydrate (Doxycycline Monohydrate 100 Mg Capsule) 100 mg PO Q12H [facility] Stop: 07/26/22 06:01 Last Admin: 07/19/22 06:53 Dose: 100 mg Documented By: RISSA Duloxetine HCl (Duloxetine Hcl 30 Mg Capsule.) 30 mg PO DAILY [facility] Last Admin: 07/19/22 07:51 Dose: 30 mg Documented By: HUGO Duloxetine HCl (Duloxetine Hcl 60 Mg Capsule.) 60 mg PO BEDTIME [facility] Last Admin: 07/18/22 21:33 Dose: 60 mg Documented By: RISSA Empagliflozin (Empagliflozin 10 Mg Tablet) 10 mg PO DAILY [facility] Last Admin: 07/19/22 07:53 Dose: 10 mg Documented By: HUGO Ferrous Sulfate (Ferrous Sulfate 324 Mg Tablet.) 324 mg PO DAILY [facility] Last Admin: 07/19/22 08:00 Dose: Not Given Documented By: HUGO Non-Admin Reason: Patient Refused Fluticasone Propionate (Fluticasone Propionate Nasal 16 Gm [place]) 1 spray NOSTRIL-B BID [facility] Last Admin: 07/19/22 07:54 Dose: 1 spray Documented By: HUGO Gabapentin (Gabapentin 400 Mg Capsule) 400 mg PO 5XD [facility] Last Admin: 07/19/22 10:46 Dose: 400 mg Documented By: HUGO Glucose (Glucose Gel 15 Gm Gel..Gram.) 15 gm PO Q15M PRN; Protocol PRN Reason: per Hypoglycemia Standing Ord. Guaifenesin (Guaifenesin 100 Mg/5 Ml Liquid) 10 ml PO Q6H PRN PRN Reason: Cough Hydroxyzine HCl (Hydroxyzine Hcl 25 Mg Tablet) 25 mg PO TID PRN PRN Reason: Anxiety Last Admin: 07/15/22 20:19 Dose: 25 mg Documented By: JOAQUIN Insulin Glargine (Insulin Glargine,Hum.Rec.Anlog 100 Unit/Ml 10 Ml Vial) 20 unit SUBCUT BEDTIME [facility] Last Admin: 07/18/22 21:34 Dose: 20 unit Documented By: RISSA Insulin Human Lispro (Insulin Lispro 100 Unit/Ml 3 Ml Vial) 0 unit SUBCUT QIDACHS [facility]; Protocol Last Admin: 07/19/22 11:25 Dose: Not Given Documented By: HUGO Non-Admin Reason: No Insulin Coverage Lactulose (Lactulose 20 Gm/30 Ml Solution) 20 gm PO BID [facility] Last Admin: 07/19/22 07:51 Dose: 20 gm Documented By: HUGO Melatonin (Melatonin 3 Mg Tablet) 6 mg PO BEDTIME PRN PRN Reason: Insomnia Last Admin: 07/18/22 21:30 Dose: 6 mg Documented By: RISSA Metoprolol Succinate (Metoprolol Succinate Er 25 Mg Tab.Er.24h) 75 mg PO BID [facility]; Protocol Last Admin: 07/19/22 07:51 Dose: 75 mg Documented By: HUGO Omeprazole (Omeprazole 20 Mg Capsule.Dr) 20 mg PO DAILY@0630 [facility] Last Admin: 07/19/22 06:52 Dose: 20 mg Documented By: RISSA Ondansetron HCl (Ondansetron Hcl 4 Mg/2 Ml Vial) 4 mg IVPUSH Q8H PRN PRN Reason: Nausea and Vomiting Last Admin: 07/14/22 08:07 Dose: 4 mg Documented By: JANIA Oxycodone HCl (Oxycodone Hcl Immed Release 5 Mg Tablet) 5 mg PO Q4H PRN PRN Reason: Pain, Severe (Pain Scale 7-10) Last Admin: 07/19/22 07:57 Dose: 5 mg Documented By: HUGO Pharmacy Consult (Consult Rx Perform Med Rec) 1 each MISCELLANE ONCE PRN PRN Reason: Consult order Phenytoin Sodium (Phenytoin Sodium Extended 100 Mg Capsule) 300 mg PO DAILY [facility] Last Admin: 07/19/22 07:52 Dose: 300 mg Documented By: HUGO Phenytoin Sodium (Phenytoin Sodium Extended 100 Mg Capsule) 400 mg PO BEDTIME [facility] Last Admin: 07/18/22 21:33 Dose: 400 mg Documented By: RISSA Quetiapine Fumarate (Quetiapine Fumarate 100 Mg Tablet) 100 mg PO BEDTIME PRN PRN Reason: Insomnia Quetiapine Fumarate (Quetiapine Fumarate 200 Mg Tablet) 200 mg PO BID [facility] Last Admin: 07/19/22 07:51 Dose: 200 mg Documented By: HUGO Sodium Chloride (0.9 % Sodium Chloride Flush 3 Ml Syringe) 3 ml IVFLUSH QSHIFT [facility] Last Admin: 07/19/22 07:58 Dose: Not Given Documented By: HUGO Non-Admin Reason: No Access Trazodone HCl (Trazodone Hcl 100 Mg Tablet) 100 mg PO BEDTIME [facility] Last Admin: 07/18/22 21:33 Dose: 100 mg Documented By: RISSA Vitamin D (Cholecalciferol (Vitamin D3) 25 Mcg Tablet) 25 mcg PO DAILY [facility] Last Admin: 07/19/22 07:53 Dose: 25 mcg Documented By: HUGO Labs 07/17/22 10:23 07/13/22 07:43 Labs: Laboratory Results - last 24 hr 07/18/22 07/18/22 07/18/22 16:22 16:56 19:52 POC Glucose 171 H 158 H 192 H 07/19/22 07/19/22 06:54 11:02 POC Glucose 91 133 H Assessment and Plan (1) Physical deconditioning: Status: Acute (2) UTI (urinary tract infection): Status: Acute Plan A 62-year-old male with pertinent history of atrial fibrillation on Eliquis, insulin-dependent diabetes mellitus, mood disorder, morbid obesity, chronic pain with opioid use, who initially presented on 07/08/22 after mechanical fall and was kept as physician observation in the ER.? Pt admitted to hospital service for further management of MSSA UTI # MSSA UTI BCx negative, continue doxycycline 07/12-07/26 per ID public relations consultant # left lower quadrant pain CT scan showing stool burden continue lactulose and Colace # physical deconditioning working with PT with increase exercise tolerance # lactic acidosis related to metformin use, not severe sepsis; resolved # HTN antihypertensives held on admission due to soft BP; metoprolol succinate resumed; continue to hold isosorbid mononitrate + torsemide # paroxysmal AF continue apixaban for stroke prevention continue metoprolol succinate + digoxin for rate control # DM2 with hyperglycemia + neuropathy hold MTF continue insuline glargine + empagliflozin, correction-dose lispro continue gabapentin + duloxetine # chronic hypoxic resp failure on home O2 4L # mild intermittent asthma without acute exacerbation prn nebs # seizure disorder continue phenytoin # chronic iron deficiency anemia Fe supplementation # mood disorder continue quetiapine, trazodone, duloxetine # VTE ppx: apixaban # dispo: awaiting STR placement the patient requires continued inpatient hospitalization for the following reasons: STR placement Time Spent With Patient Time: Total time managing care of this patient today ____ minutes. Quality Stroke Does the patient have a stroke diagnosis?: No VTE Prior VTE?: No VTE Risk Level:: Medical - moderate - high VTE Device Contraindication: Treatment Not Indicated VTE Drug Contraindication: N/A - Med Ordered
--- NOTE | 2022-07-19 14:35 | MHC.CM.PN ---
PT CONTINUES TO AWAIT STR PLACEMENT HOWEVER [facility] IS STILL THE ONLY SNF WILLING TO FOLLOW, THEY DO NOT HAVE A BED AT THIS TIME PT C/O BEING IN BED THROUGH THE WEEKEND PER NURSING STAFF, THEY DID GET PT OUT OF BED TODAY HOWEVER HE WANTED TO RETURN IN LESS THAN 30 MINUTES PT WILL LIKELY NEED TO CONTINUE WORKING WITH PT AND NURSING STAFF HE MAY DC HOME WITH SERVICES OF NOTE: PT IS PRIMARILY W/C BOUND AT BASELINE, BUT DOES HAVE TO TRANSFER WITHOUT ASSISTANCE HE DOES NOT HAVE 24/7 CARE
[2022-07-19 16:00] VITALS: BP 123/67; PULSE 77; RESP 18; TEMP 36.8; O2SAT 97
[2022-07-19 16:56] LABS: Glucose, Whole Blood 154 mg/dL (60-115)
[2022-07-19] MEDS: Insulin Lispro 100 UNIT/ML 3 ML VIAL SUBCUT ×2 (17:29→20:51)
[2022-07-19 19:50] VITALS: BP 115/66; PULSE 90; RESP 17; TEMP 36.8; O2SAT 95
[2022-07-19 20:11] LABS: Glucose, Whole Blood 273 mg/dL (60-115)
[2022-07-19] MEDS: traZODone HCL 100 MG TABLET PO (20:49)
[2022-07-19] MEDS: QUEtiapine Fumarate 100 MG TABLET PO (20:49)
[2022-07-19] MEDS: hydrOXYzine HCL 25 MG TABLET PO (20:49)
[2022-07-19] MEDS: DULoxetine HCl 60 MG CAPSULE.DR PO (20:50)
[2022-07-19] MEDS: Melatonin 3 MG TABLET 6 MG PO (20:50)
[2022-07-19] MEDS: Phenytoin Sodium Extended 100 MG CAPSULE 400 MG PO (20:50)
[2022-07-19] MEDS: Insulin Glargine,Hum.rec.anlog 100 UNIT/ML 10 ML VIAL 20 UNIT SUBCUT (20:51)
[2022-07-20 03:24] VITALS: BP 123/58; PULSE 65; RESP 17; TEMP 36.2; O2SAT 95
[2022-07-20] MEDS: Gabapentin 400 MG CAPSULE PO ×5 (05:53→20:40)
[2022-07-20] MEDS: Omeprazole 20 MG CAPSULE.DR PO (05:53)
[2022-07-20] MEDS: Doxycycline Monohydrate 100 MG CAPSULE PO ×2 (05:53→17:15)
[2022-07-20 07:17] VITALS: BP 106/55; PULSE 89; RESP 18; TEMP 36.4; O2SAT 96
[2022-07-20 07:22] LABS: Glucose, Whole Blood 97 mg/dL (60-115)
[2022-07-20] MEDS: Phenytoin Sodium Extended 100 MG CAPSULE 300 MG PO (07:38)
[2022-07-20] MEDS: DULoxetine HCl 30 MG CAPSULE.DR PO (07:39)
[2022-07-20] MEDS: Empagliflozin 10 MG TABLET PO (07:40)
[2022-07-20] MEDS: Apixaban 5 MG TABLET PO ×2 (07:40→20:40)
[2022-07-20] MEDS: Metoprolol Succinate ER 25 MG TAB.ER.24H 75 MG PO ×2 (07:40→20:41)
[2022-07-20] MEDS: Cyanocobalamin (Vitamin B-12) 1,000 MCG TABLET 1000 MCG PO (07:41)
[2022-07-20] MEDS: Ascorbic Acid 250 MG TABLET PO (07:41)
[2022-07-20] MEDS: Atorvastatin Calcium 80 MG TABLET PO (07:41)
[2022-07-20] MEDS: QUEtiapine Fumarate 200 MG TABLET PO ×2 (07:42→20:41)
[2022-07-20] MEDS: Digoxin 0.125 MG TABLET PO (07:42)
[2022-07-20] MEDS: Docusate Sodium 100 MG CAPSULE PO ×2 (07:42→20:42)
[2022-07-20] MEDS: Acetaminophen 325 MG TABLET 650 MG PO ×2 (07:43→20:41)
[2022-07-20] MEDS: Fluticasone Propionate Nasal 16 GM SPRAY 1 SPRAY NOSTRIL-B ×2 (07:45→20:49)
[2022-07-20] MEDS: Cholecalciferol (Vitamin D3) 25 MCG TABLET PO (07:45)
[2022-07-20] MEDS: oxyCODONE HCl Immed Release 5 MG TABLET PO ×4 (07:52→22:55)
[2022-07-20] MEDS: LORazepam 1 MG TABLET 2 MG PO ×2 (07:52→17:27)
[2022-07-20 09:27] VITALS: BP 106/55; PULSE 89; O2SAT 96
[2022-07-20 11:02] LABS: Glucose, Whole Blood 136 mg/dL (60-115)
--- NOTE | 2022-07-20 11:20 | P.PNIM_ITS ---
Subjective Subjective Date of Service: 07/20/22 Interval History: cc: abd pain, weakness interval history:no acute complaints Physical Exam Vital Signs: Vital Signs: Last Vital Signs Temp 97.5 F 07/20/22 07:17 Pulse 89 07/20/22 09:27 Resp 18 07/20/22 07:17 BP 106/55 L 07/20/22 09:27 Pulse Ox 96 07/20/22 09:27 O2 Del Method 07/20/22 07:17 O2 Flow Rate 2 07/20/22 07:17 Oxygen Flow Rate 4 07/08/22 02:29 BMI result Body Mass Index 47.5 no acute disterss lungs CTA bilateral [id number] Objective Data Active Medications Acetaminophen (Acetaminophen 325 Mg Tablet) 650 mg PO BID [facility] Last Admin: 07/20/22 07:43 Dose: 650 mg Documented By: RUTH Acetaminophen (Acetaminophen 325 Mg Tablet) 650 mg PO Q6H PRN PRN Reason: Pain, Mild (Pain Scale 1-3) Last Admin: 07/14/22 16:53 Dose: 650 mg Documented By: VARSHA Albuterol Sulfate (Albuterol Sulfate 90 Mcg 8 Gm Inhaler) 2 puff INHALE Q4H PRN PRN Reason: Shortness Of Breath Apixaban (Apixaban 5 Mg Tablet) 5 mg PO BID [facility] Last Admin: 07/20/22 07:40 Dose: 5 mg Documented By: RUTH Ascorbic Acid (Ascorbic Acid 250 Mg Tablet) 250 mg PO DAILY [facility] Last Admin: 07/20/22 07:41 Dose: 250 mg Documented By: RUTH Atorvastatin Calcium (Atorvastatin Calcium 80 Mg Tablet) 80 mg PO DAILY [facility] Last Admin: 07/20/22 07:41 Dose: 80 mg Documented By: RUTH Cyanocobalamin (Cyanocobalamin (Vitamin B-12) 1,000 Mcg Tablet) 1,000 mcg PO DAILY [facility] Last Admin: 07/20/22 07:41 Dose: 1,000 mcg Documented By: RUTH Dextrose (Dextrose 50 % 25 Gm/50 Ml Syringe) 25 gm IVPUSH Q15M PRN; Protocol PRN Reason: per Hypoglycemia Standing Ord. Digoxin (Digoxin 0.125 Mg Tablet) 0.125 mg PO Q48H [facility] Last Admin: 07/20/22 07:42 Dose: 0.125 mg Documented By: RUTH Docusate Sodium (Docusate Sodium 100 Mg Capsule) 100 mg PO BID [facility] Last Admin: 07/20/22 07:42 Dose: 100 mg Documented By: RUTH Doxycycline Monohydrate (Doxycycline Monohydrate 100 Mg Capsule) 100 mg PO Q12H [facility] Stop: 07/26/22 06:01 Last Admin: 07/20/22 05:53 Dose: 100 mg Documented By: JOANA Duloxetine HCl (Duloxetine Hcl 30 Mg Capsule.) 30 mg PO DAILY [facility] Last Admin: 07/20/22 07:39 Dose: 30 mg Documented By: RUTH Duloxetine HCl (Duloxetine Hcl 60 Mg Capsule.) 60 mg PO BEDTIME [facility] Last Admin: 07/19/22 20:50 Dose: 60 mg Documented By: JOANA Empagliflozin (Empagliflozin 10 Mg Tablet) 10 mg PO DAILY [facility] Last Admin: 07/20/22 07:40 Dose: 10 mg Documented By: RUTH Ferrous Sulfate (Ferrous Sulfate 324 Mg Tablet.) 324 mg PO DAILY [facility] Last Admin: 07/20/22 09:24 Dose: Not Given Documented By: MICHAEL Non-Admin Reason: Patient Refused Fluticasone Propionate (Fluticasone Propionate Nasal 16 Gm [place]) 1 spray NOSTRIL-B BID [facility] Last Admin: 07/20/22 07:45 Dose: 1 spray Documented By: RUTH Gabapentin (Gabapentin 400 Mg Capsule) 400 mg PO 5XD [facility] Last Admin: 07/20/22 09:42 Dose: 400 mg Documented By: RUTH Glucose (Glucose Gel 15 Gm Gel..Gram.) 15 gm PO Q15M PRN; Protocol PRN Reason: per Hypoglycemia Standing Ord. Guaifenesin (Guaifenesin 100 Mg/5 Ml Liquid) 10 ml PO Q6H PRN PRN Reason: Cough Hydroxyzine HCl (Hydroxyzine Hcl 25 Mg Tablet) 25 mg PO TID PRN PRN Reason: Anxiety Last Admin: 07/19/22 20:49 Dose: 25 mg Documented By: JOANA Insulin Glargine (Insulin Glargine,Hum.Rec.Anlog 100 Unit/Ml 10 Ml Vial) 20 unit SUBCUT BEDTIME [facility] Last Admin: 07/19/22 20:51 Dose: 20 unit Documented By: JOANA Insulin Human Lispro (Insulin Lispro 100 Unit/Ml 3 Ml Vial) 0 unit SUBCUT QIDACHS [facility]; Protocol Last Admin: 07/20/22 07:25 Dose: Not Given Documented By: MICHAEL Non-Admin Reason: No Insulin Coverage Lactulose (Lactulose 20 Gm/30 Ml Solution) 20 gm PO BID [facility] Last Admin: 07/20/22 09:24 Dose: Not Given Documented By: MICHAEL Non-Admin Reason: Patient Refused Lorazepam (Lorazepam 1 Mg Tablet) 2 mg PO TID PRN PRN Reason: anxiety Last Admin: 07/20/22 07:52 Dose: 2 mg Documented By: RUTH Melatonin (Melatonin 3 Mg Tablet) 6 mg PO BEDTIME PRN PRN Reason: Insomnia Last Admin: 07/19/22 20:50 Dose: 6 mg Documented By: JOANA Metoprolol Succinate (Metoprolol Succinate Er 25 Mg Tab.Er.24h) 75 mg PO BID [facility]; Protocol Last Admin: 07/20/22 07:40 Dose: 75 mg Documented By: RUTH Omeprazole (Omeprazole 20 Mg Capsule.Dr) 20 mg PO DAILY@0630 [facility] Last Admin: 07/20/22 05:53 Dose: 20 mg Documented By: JOANA Ondansetron HCl (Ondansetron Hcl 4 Mg/2 Ml Vial) 4 mg IVPUSH Q8H PRN PRN Reason: Nausea and Vomiting Last Admin: 07/14/22 08:07 Dose: 4 mg Documented By: JANIA Oxycodone HCl (Oxycodone Hcl Immed Release 5 Mg Tablet) 5 mg PO Q4H PRN PRN Reason: Pain, Severe (Pain Scale 7-10) Last Admin: 07/20/22 07:52 Dose: 5 mg Documented By: RUTH Pharmacy Consult (Consult Rx Perform Med Rec) 1 each MISCELLANE ONCE PRN PRN Reason: Consult order Phenytoin Sodium (Phenytoin Sodium Extended 100 Mg Capsule) 300 mg PO DAILY [facility] Last Admin: 07/20/22 07:38 Dose: 300 mg Documented By: RUTH Phenytoin Sodium (Phenytoin Sodium Extended 100 Mg Capsule) 400 mg PO BEDTIME [facility] Last Admin: 07/19/22 20:50 Dose: 400 mg Documented By: JOANA Quetiapine Fumarate (Quetiapine Fumarate 100 Mg Tablet) 100 mg PO BEDTIME PRN PRN Reason: Insomnia Last Admin: 07/19/22 20:49 Dose: 100 mg Documented By: JOANA Quetiapine Fumarate (Quetiapine Fumarate 200 Mg Tablet) 200 mg PO BID [facility] Last Admin: 07/20/22 07:42 Dose: 200 mg Documented By: RUTH Sodium Chloride (0.9 % Sodium Chloride Flush 3 Ml Syringe) 3 ml IVFLUSH QSHIFT [facility] Last Admin: 07/20/22 07:25 Dose: Not Given Documented By: DABA Non-Admin Reason: No Access Trazodone HCl (Trazodone Hcl 100 Mg Tablet) 100 mg PO BEDTIME [facility] Last Admin: 07/19/22 20:49 Dose: 100 mg Documented By: JOANA Vitamin D (Cholecalciferol (Vitamin D3) 25 Mcg Tablet) 25 mcg PO DAILY [facility] Last Admin: 07/20/22 07:45 Dose: 25 mcg Documented By: RUTH Labs 07/17/22 10:23 07/13/22 07:43 Labs: Laboratory Results - last 24 hr 07/19/22 07/19/22 07/20/22 16:50 19:54 07:14 POC Glucose 154 H 273 H 97 07/20/22 10:53 POC Glucose 136 H Assessment and Plan (1) Physical deconditioning: Status: Acute (2) UTI (urinary tract infection): Status: Acute Plan A 62-year-old male with pertinent history of paroxysmal atrial fibrillation on Eliquis, insulin-dependent diabetes mellitus, mood disorder, morbid obesity, chronic pain with opioid dependence, who initially presented on 07/08/22 after mechanical fall and was kept as physician observation in the ER.? Pt admitted to hospital service for further management of MSSA UTI MSSA UTI BCx negative, continue doxycycline 07/12-07/26 per ID physical deconditioning working with PT with increase exercise tolerance lactic acidosis related to metformin use, not severe sepsis; resolved HTN antihypertensives held on admission due to soft BP; metoprolol succinate resumed; continue to hold isosorbid mononitrate + torsemide paroxysmal AF continue apixaban continue metoprolol succinate + digoxin DM2 with hyperglycemia + neuropathy hold MTF continue insuline glargine + empagliflozin, correction-dose lispro continue gabapentin + duloxetine chronic hypoxic resp failure on home O2 4L mild intermittent asthma without acute exacerbation prn nebs seizure disorder continue phenytoin chronic iron deficiency anemia Fe supplementation mood disorder continue quetiapine, trazodone, duloxetine VTE ppx: apixaban dispo: awaiting STR placement reason for continued hospitalization: STR placement Time Spent With Patient Time: Total time managing care of this patient today ____ minutes. Quality Stroke Does the patient have a stroke diagnosis?: No VTE Prior VTE?: No VTE Risk Level:: Medical - moderate - high VTE Device Contraindication: Treatment Not Indicated VTE Drug Contraindication: N/A - Med Ordered
--- NOTE | 2022-07-20 14:42 | MHC.CM.PN ---
CM ATTEMPTED TO CONTACT PT'S SISTER JESU AT 2:40PM AT NUMBER ON FILE, NO ANSWER AND MESSAGE LEFT W/CM CONTACT INFO. CM ATTEMPTED TO CONTACT [facility] ADMISSIONS LIAISON AT 2:20PM [phone] SHE HAD TOLD PREVIOUS CM SHE WOULD FOLLOW UP TODAY, NO ANSWER AND DETAILED MESSAGE LEFT W/REQUEST FOR CALL BACK. SNF REFERRAL UPDATED AND EXPANDED.
[2022-07-20 15:36] VITALS: BP 116/68; PULSE 86; RESP 17; TEMP 36.8; O2SAT 98
[2022-07-20 16:35] LABS: Glucose, Whole Blood 149 mg/dL (60-115)
[2022-07-20 19:26] VITALS: BP 127/56; PULSE 78; RESP 18; TEMP 36.6; O2SAT 97
[2022-07-20 20:03] LABS: Glucose, Whole Blood 363 mg/dL (60-115)
[2022-07-20] MEDS: Melatonin 3 MG TABLET 6 MG PO (20:40)
[2022-07-20] MEDS: Phenytoin Sodium Extended 100 MG CAPSULE 400 MG PO (20:41)
[2022-07-20] MEDS: hydrOXYzine HCL 25 MG TABLET PO (20:41)
[2022-07-20] MEDS: DULoxetine HCl 60 MG CAPSULE.DR PO (20:41)
[2022-07-20] MEDS: traZODone HCL 100 MG TABLET PO (20:41)
[2022-07-20] MEDS: QUEtiapine Fumarate 100 MG TABLET PO (20:41)
[2022-07-20] MEDS: Insulin Glargine,Hum.rec.anlog 100 UNIT/ML 10 ML VIAL 20 UNIT SUBCUT (20:45)
[2022-07-20] MEDS: Insulin Lispro 100 UNIT/ML 3 ML VIAL SUBCUT (20:46)
--- NOTE | 2022-07-21 | ECG_ITS ---
Test Reason : CHEST PAIN Blood Pressure : / mmHG Vent. Rate : 079 BPM Atrial Rate : 000 BPM P-R Int : 000 ms QRS Dur : 164 ms QT Int : 422 ms P-R-T Axes : 000 -88 037 degrees QTc Int : 483 ms Atrial fibrillation Left axis deviation Right bundle branch block Inferior infarct (cited on or before 24-MAR-2020) Abnormal ECG When compared with ECG of 27-JUN-2022 08:44, No significant change was found Referred By: Kun Diamond Electronically Signed By:Jasper Wagner
[2022-07-21 03:53] VITALS: BP 118/58; PULSE 70; RESP 17; TEMP 36.7; O2SAT 96
[2022-07-21] MEDS: oxyCODONE HCl Immed Release 5 MG TABLET PO ×3 (05:27→17:16)
[2022-07-21] MEDS: LORazepam 1 MG TABLET 2 MG PO ×2 (05:27→18:33)
[2022-07-21] MEDS: Omeprazole 20 MG CAPSULE.DR PO (05:27)
[2022-07-21] MEDS: Gabapentin 400 MG CAPSULE PO ×5 (05:27→20:24)
[2022-07-21] MEDS: Doxycycline Monohydrate 100 MG CAPSULE PO ×2 (05:28→17:16)
[2022-07-21 05:42] LABS: Hematocrit 34.5 % (42.0-52.0); Hemoglobin 9.8 g/dl (14.0-18.0); Mean Corpuscular HGB Conc 28.4 g/dl (31.0-36.0); Mean Corpuscular Hemoglobin 22.4 pg (27.0-33.0); Mean Corpuscular Volume 78.9 fL (80.0-98.0); Mean Platelet Volume 10.1 fL (9.4-12.4); Platelet Count 365 X10*3/uL (160-400); Red Blood Count 4.37 X10*6/uL (4.60-5.80); Red Cell Distribution Width 20.3 % (11.0-16.0); White Blood Count 6.3 X10*3/uL (4.8-10.8)
[2022-07-21 06:02] LABS: Anion Gap 14 (12-20); Blood Urea Nitrogen 12 mg/dL (9-16); Calcium 8.8 mg/dL (8.4-10.2); Carbon Dioxide 30 mmol/L (22-29); Chloride 100 mmol/L (96-108); Creatinine Clr Calc Pharmacy 180.4; Estimated Glomerular Filt Rate > 60; Glucose Fasting 97 mg/dL (60-99); Potassium 4.7 mmol/L (3.3-5.1); Sodium 139 mmol/L (135-145)
[2022-07-21 07:01] VITALS: BP 139/91; PULSE 85; RESP 20; TEMP 36.2; O2SAT 100
[2022-07-21 07:32] LABS: Glucose, Whole Blood 111 mg/dL (60-115)
--- NOTE | 2022-07-21 09:15 | P.PNIM_ITS ---
Subjective Subjective Date of Service: 07/21/22 Interval History: cc: abd pain, weakness interval history:no acute complaints Physical Exam Vital Signs: Vital Signs: Last Vital Signs Temp 97.1 F 07/21/22 07:01 Pulse 85 07/21/22 07:01 Resp 20 07/21/22 07:01 BP 139/91 H 07/21/22 07:01 Pulse Ox 100 07/21/22 07:01 O2 Del Method 07/21/22 07:01 O2 Flow Rate 4 07/21/22 07:01 Oxygen Flow Rate 4 07/08/22 02:29 BMI result Body Mass Index 47.5 no acute disterss lungs CTA bilateral [id number] Objective Data Active Medications Acetaminophen (Acetaminophen 325 Mg Tablet) 650 mg PO BID [facility] Last Admin: 07/20/22 20:41 Dose: 650 mg Documented By: JOANA Acetaminophen (Acetaminophen 325 Mg Tablet) 650 mg PO Q6H PRN PRN Reason: Pain, Mild (Pain Scale 1-3) Last Admin: 07/14/22 16:53 Dose: 650 mg Documented By: VARSHA Albuterol Sulfate (Albuterol Sulfate 90 Mcg 8 Gm Inhaler) 2 puff INHALE Q4H PRN PRN Reason: Shortness Of Breath Apixaban (Apixaban 5 Mg Tablet) 5 mg PO BID [facility] Last Admin: 07/20/22 20:40 Dose: 5 mg Documented By: JOANA Ascorbic Acid (Ascorbic Acid 250 Mg Tablet) 250 mg PO DAILY [facility] Last Admin: 07/20/22 07:41 Dose: 250 mg Documented By: RUTH Atorvastatin Calcium (Atorvastatin Calcium 80 Mg Tablet) 80 mg PO DAILY [facility] Last Admin: 07/20/22 07:41 Dose: 80 mg Documented By: RUTH Cyanocobalamin (Cyanocobalamin (Vitamin B-12) 1,000 Mcg Tablet) 1,000 mcg PO DAILY [facility] Last Admin: 07/20/22 07:41 Dose: 1,000 mcg Documented By: RUTH Dextrose (Dextrose 50 % 25 Gm/50 Ml Syringe) 25 gm IVPUSH Q15M PRN; Protocol PRN Reason: per Hypoglycemia Standing Ord. Digoxin (Digoxin 0.125 Mg Tablet) 0.125 mg PO Q48H [facility] Last Admin: 07/20/22 07:42 Dose: 0.125 mg Documented By: RUTH Docusate Sodium (Docusate Sodium 100 Mg Capsule) 100 mg PO BID [facility] Last Admin: 07/20/22 20:42 Dose: 100 mg Documented By: JOANA Doxycycline Monohydrate (Doxycycline Monohydrate 100 Mg Capsule) 100 mg PO Q12H [facility] Stop: 07/26/22 06:01 Last Admin: 07/21/22 05:28 Dose: 100 mg Documented By: ORVILLE Duloxetine HCl (Duloxetine Hcl 30 Mg Capsule.) 30 mg PO DAILY [facility] Last Admin: 07/20/22 07:39 Dose: 30 mg Documented By: RUTH Duloxetine HCl (Duloxetine Hcl 60 Mg Capsule.) 60 mg PO BEDTIME [facility] Last Admin: 07/20/22 20:41 Dose: 60 mg Documented By: JOANA Empagliflozin (Empagliflozin 10 Mg Tablet) 10 mg PO DAILY [facility] Last Admin: 07/20/22 07:40 Dose: 10 mg Documented By: RUTH Ferrous Sulfate (Ferrous Sulfate 324 Mg Tablet.) 324 mg PO DAILY [facility] Last Admin: 07/20/22 09:24 Dose: Not Given Documented By: MICHAEL Non-Admin Reason: Patient Refused Fluticasone Propionate (Fluticasone Propionate Nasal 16 Gm [place]) 1 spray NOSTRIL-B BID [facility] Last Admin: 07/20/22 20:49 Dose: 1 spray Documented By: JOANA Gabapentin (Gabapentin 400 Mg Capsule) 400 mg PO 5XD [facility] Last Admin: 07/21/22 05:27 Dose: 400 mg Documented By: ORVILLE Glucose (Glucose Gel 15 Gm Gel..Gram.) 15 gm PO Q15M PRN; Protocol PRN Reason: per Hypoglycemia Standing Ord. Guaifenesin (Guaifenesin 100 Mg/5 Ml Liquid) 10 ml PO Q6H PRN PRN Reason: Cough Hydroxyzine HCl (Hydroxyzine Hcl 25 Mg Tablet) 25 mg PO TID PRN PRN Reason: Anxiety Last Admin: 07/20/22 20:41 Dose: 25 mg Documented By: JOANA Insulin Glargine (Insulin Glargine,Hum.Rec.Anlog 100 Unit/Ml 10 Ml Vial) 20 unit SUBCUT BEDTIME [facility] Last Admin: 07/20/22 20:45 Dose: 20 unit Documented By: JOANA Insulin Human Lispro (Insulin Lispro 100 Unit/Ml 3 Ml Vial) 0 unit SUBCUT QIDACHS [facility]; Protocol Last Admin: 07/21/22 07:36 Dose: Not Given Documented By: BETHANY Non-Admin Reason: No Insulin Coverage Lactulose (Lactulose 20 Gm/30 Ml Solution) 20 gm PO BID [facility] Last Admin: 07/20/22 20:42 Dose: Not Given Documented By: JOANA Non-Admin Reason: Patient Refused Lorazepam (Lorazepam 1 Mg Tablet) 2 mg PO TID PRN PRN Reason: anxiety Last Admin: 07/21/22 05:27 Dose: 2 mg Documented By: ORVILLE Melatonin (Melatonin 3 Mg Tablet) 6 mg PO BEDTIME PRN PRN Reason: Insomnia Last Admin: 07/20/22 20:40 Dose: 6 mg Documented By: JOANA Metoprolol Succinate (Metoprolol Succinate Er 25 Mg Tab.Er.24h) 75 mg PO BID [facility]; Protocol Last Admin: 07/20/22 20:41 Dose: 75 mg Documented By: JOANA Omeprazole (Omeprazole 20 Mg Capsule.Dr) 20 mg PO DAILY@0630 [facility] Last Admin: 07/21/22 05:27 Dose: 20 mg Documented By: ORVILLE Ondansetron HCl (Ondansetron Hcl 4 Mg/2 Ml Vial) 4 mg IVPUSH Q8H PRN PRN Reason: Nausea and Vomiting Last Admin: 07/14/22 08:07 Dose: 4 mg Documented By: JANIA Oxycodone HCl (Oxycodone Hcl Immed Release 5 Mg Tablet) 5 mg PO Q4H PRN PRN Reason: Pain, Severe (Pain Scale 7-10) Last Admin: 07/21/22 05:27 Dose: 5 mg Documented By: ORVILLE Pharmacy Consult (Consult Rx Perform Med Rec) 1 each MISCELLANE ONCE PRN PRN Reason: Consult order Phenytoin Sodium (Phenytoin Sodium Extended 100 Mg Capsule) 300 mg PO DAILY [facility] Last Admin: 07/20/22 07:38 Dose: 300 mg Documented By: RUTH Phenytoin Sodium (Phenytoin Sodium Extended 100 Mg Capsule) 400 mg PO BEDTIME [facility] Last Admin: 07/20/22 20:41 Dose: 400 mg Documented By: JOANA Quetiapine Fumarate (Quetiapine Fumarate 100 Mg Tablet) 100 mg PO BEDTIME PRN PRN Reason: Insomnia Last Admin: 07/20/22 20:41 Dose: 100 mg Documented By: JOANA Quetiapine Fumarate (Quetiapine Fumarate 200 Mg Tablet) 200 mg PO BID [facility] Last Admin: 07/20/22 20:41 Dose: 200 mg Documented By: JOANA Sodium Chloride (0.9 % Sodium Chloride Flush 3 Ml Syringe) 3 ml IVFLUSH QSHIFT [facility] Last Admin: 07/21/22 07:23 Dose: Not Given Documented By: BETHANY Non-Admin Reason: No Access Trazodone HCl (Trazodone Hcl 100 Mg Tablet) 100 mg PO BEDTIME [facility] Last Admin: 07/20/22 20:41 Dose: 100 mg Documented By: JOANA Vitamin D (Cholecalciferol (Vitamin D3) 25 Mcg Tablet) 25 mcg PO DAILY [facility] Last Admin: 07/20/22 07:45 Dose: 25 mcg Documented By: RUTH Labs 07/21/22 05:21 07/21/22 05:21 Labs: Laboratory Results - last 24 hr 07/20/22 07/20/22 07/20/22 10:53 16:31 19:29 MCV MCH MCHC RDW Plt Count MPV Absolute Nucleated RBC Nucleated RBC % (auto) Anion Gap Estim Creat Clear Calc Estimated GFR POC Glucose 136 H 149 H 363 H* Fasting Glucose Calcium 07/21/22 07/21/22 07/21/22 05:21 05:21 07:06 MCV 78.9 L MCH 22.4 L MCHC 28.4 L RDW 20.3 H Plt Count 365 MPV 10.1 Absolute Nucleated RBC 0.000 Nucleated RBC % (auto) 0.0 Anion Gap 14 Estim Creat Clear Calc 180.4 Estimated GFR > 60 POC Glucose 111 Fasting Glucose 97 Calcium 8.8 Assessment and Plan (1) Physical deconditioning: Status: Acute (2) UTI (urinary tract infection): Status: Acute Plan A 62-year-old male with pertinent history of paroxysmal atrial fibrillation on Eliquis, insulin-dependent diabetes mellitus, mood disorder, morbid obesity, chronic pain with opioid dependence, who initially presented on 07/08/22 after mec hanical fall and was kept as physician observation in the ER.? Pt admitted to hospital service for further management of MSSA UTI MSSA UTI BCx negative, continue doxycycline 07/12-07/26 per ID physical deconditioning working with PT with increase exercise tolerance lactic acidosis related to metformin use, not severe sepsis; resolved HTN antihypertensives held on admission due to soft BP; metoprolol succinate resumed; continue to hold isosorbid mononitrate + torsemide paroxysmal AF continue apixaban continue metoprolol succinate + digoxin DM2 with hyperglycemia + neuropathy hold MTF continue insuline glargine + empagliflozin, correction-dose lispro continue gabapentin + duloxetine chronic hypoxic resp failure on home O2 4L mild intermittent asthma without acute exacerbation prn nebs seizure disorder continue phenytoin chronic iron deficiency anemia Fe supplementation mood disorder continue quetiapine, trazodone, duloxetine VTE ppx: apixaban dispo: awaiting STR placement reason for continued hospitalization: STR placement Time Spent With Patient Time: Total time managing care of this patient today ____ minutes. Quality Stroke Does the patient have a stroke diagnosis?: No VTE Prior VTE?: No VTE Risk Level:: Medical - moderate - high VTE Device Contraindication: Treatment Not Indicated VTE Drug Contraindication: N/A - Med Ordered
[2022-07-21 09:24] VITALS: BP 139/91; PULSE 85; O2SAT 100
[2022-07-21] MEDS: Empagliflozin 10 MG TABLET PO (10:26)
[2022-07-21] MEDS: Phenytoin Sodium Extended 100 MG CAPSULE 300 MG PO (10:26)
[2022-07-21] MEDS: Acetaminophen 325 MG TABLET 650 MG PO ×2 (10:27→20:23)
[2022-07-21] MEDS: Cholecalciferol (Vitamin D3) 25 MCG TABLET PO (10:27)
[2022-07-21] MEDS: Apixaban 5 MG TABLET PO ×2 (10:28→20:24)
[2022-07-21] MEDS: QUEtiapine Fumarate 200 MG TABLET PO ×2 (10:28→20:24)
[2022-07-21] MEDS: Docusate Sodium 100 MG CAPSULE PO ×2 (10:28→20:24)
[2022-07-21] MEDS: Cyanocobalamin (Vitamin B-12) 1,000 MCG TABLET 1000 MCG PO (10:28)
[2022-07-21] MEDS: Atorvastatin Calcium 80 MG TABLET PO (10:28)
[2022-07-21] MEDS: Ascorbic Acid 250 MG TABLET PO (10:28)
[2022-07-21] MEDS: DULoxetine HCl 30 MG CAPSULE.DR PO (10:28)
[2022-07-21] MEDS: Metoprolol Succinate ER 25 MG TAB.ER.24H 75 MG PO ×2 (10:29→20:23)
[2022-07-21] MEDS: Fluticasone Propionate Nasal 16 GM SPRAY 1 SPRAY NOSTRIL-B ×2 (10:30→20:26)
--- NOTE | 2022-07-21 10:46 | MHC.CM.PN ---
Addendum entered by Hilda Hoskins RN 07/21/22 16:27: PER HOSPITALIST PT CLEARED FOR D/C, AUTH OBTAINED AND PT WILL D/C AT 5:30PM [facility]IA [facility]. Original Note: PER [facility] THEY HAVE STARTED AUTH FOR PT, PER HOSPITALIST PT C/O CHEST PAIN AND WILL COMPLETE EKG AND TROPONIN PRIOR TO D/C, CM WILL CONT TO FOLLOW.
--- NOTE | 2022-07-21 11:03 | PC.NURSE ---
Patient c/o 8/10 chest pain, midline, non-radiating, worsening with deep breaths. Dr. Diamond notified and ordered EKG, CXR, and trops. EKG looks unchanged per MD.
[2022-07-21 11:11] LABS: Troponin-I High Sensitivity 11.8 ng/L (<3.5-35.0)
[2022-07-21 11:16] LABS: Glucose, Whole Blood 137 mg/dL (60-115)
--- NOTE | 2022-07-21 11:36 | PM.DS ---
DS: Providers Provider Date of Service: 07/21/22 Date of admission: 07/11/22 23:40 Primary care physician: Brown Parada MD Consults: 07/11/22 23:48 Consult to Infectious Diseases Routine Consulting Provider: Penny Hayden Reason for consultation: Staph aureus bacteriuria DS: Diagnosis Discharge Diagnosis (1) Physical deconditioning: Status: Acute (2) UTI (urinary tract infection): Status: Acute DS: Summary Hospital Course Hospital Course: from initial hpi: This is a 62-year-old male with pertinent history of atrial fibrillation on Eliquis, insulin-dependent diabetes mellitus, mood disorder, morbid obesity, chronic pain with opioid use, essential hypertension who initially presented on 07/08 after mechanical fall and was kept as physician observation in the ER.? Hospital Medicine consulted as patient's urine culture grew Staph aureus.? Patient states he is mostly mobile and uses a wheelchair to ambulate.? He presented to the ER after a mechanical fall after he tripped while trying to get out of his wheelchair in the bathroom.? In the ER, urine culture grew Staph aureus and lactic acid was 2.2.? Blood pressure noted to be soft with systolic in the 90s and Hospital Medicine group consulted for further evaluation and management.? Patient does complain of dysuria at the time of my evaluation but has no other complaints. hospital course: Patient was admitted for MSSA urinary tract infection. He was seen by infectious disease recommended 2 weeks of doxycycline. He will complete on 07/26. For his physical deconditioning was seen by Physical therapy and recommended short-term rehab. He is likely require less than 30 days. Patient noted to have lactic acidosis, this was likely due to metformin not sepsis. Resolved. For paroxysmal atrial fibrillation he was continued on apixaban, Toprol, and digoxin. For diabetes with hyperglycemia neuropathy he was given insulin, Jardiance, gabapentin, Cymbalta. For his chronic hypoxic respiratory failure he remained on home O2 at 4 L. There is mild intermittent asthma he did not have any acute exacerbation. For his seizure disorder he was continued on phenytoin. For chronic iron deficiency anemia he was continue on iron. For mood disorder was continued on quetiapine, trazodone, Cymbalta. Time Spent with Patient Time attestation: Total time managing care of this patient today ____ minutes. Discharge coordination time: Greater than 30 minutes Quality: Safe Use of Opioids Does Pt have an Active Cancer Diagnosis on the Problem List?: No Quality: Stroke Does the patient have a stroke diagnosis?: No Physical Exam Vital Signs: Vital Signs: Last Vital Signs Temp 97.1 F 07/21/22 07:01 Pulse 85 07/21/22 09:24 Resp 20 07/21/22 07:01 BP 139/91 H 07/21/22 09:24 Pulse Ox 100 07/21/22 09:24 O2 Del Method 07/21/22 07:01 O2 Flow Rate 4 07/21/22 07:01 Oxygen Flow Rate 4 07/08/22 02:29 BMI result Body Mass Index 47.5 no acute disterss lungs CTA bilateral [id number] DS: Data Data Completed and Pending Labs on day of discharge: Laboratory Results - last 24 hr 07/20/22 07/20/22 07/21/22 16:31 19:29 05:21 WBC 6.3 RBC 4.37 L Hgb 9.8 L Hct 34.5 L MCV 78.9 L MCH 22.4 L MCHC 28.4 L RDW 20.3 H Plt Count 365 MPV 10.1 Absolute Nucleated RBC 0.000 Nucleated RBC % (auto) 0.0 Sodium Potassium Chloride Carbon Dioxide Anion Gap BUN Creatinine Estim Creat Clear Calc Estimated GFR POC Glucose 149 H 363 H* Fasting Glucose Calcium Troponin I High Sens 07/21/22 07/21/22 07/21/22 05:21 07:06 10:40 WBC RBC Hgb Hct MCV MCH MCHC RDW Plt Count MPV Absolute Nucleated RBC Nucleated RBC % (auto) Sodium 139 Potassium 4.7 D Chloride 100 Carbon Dioxide 30 H Anion Gap 14 BUN 12 Creatinine 0.70 Estim Creat Clear Calc 180.4 Estimated GFR > 60 POC Glucose 111 Fasting Glucose 97 Calcium 8.8 Troponin I High Sens 11.8 07/21/22 11:06 WBC RBC Hgb Hct MCV MCH MCHC RDW Plt Count MPV Absolute Nucleated RBC Nucleated RBC % (auto) Sodium Potassium Chloride Carbon Dioxide Anion Gap BUN Creatinine Estim Creat Clear Calc Estimated GFR POC Glucose 137 H Fasting Glucose Calcium Troponin I High Sens Discharge Plan Discharge Anticipated Discharge Date/Time: 07/21/22 11:31 Patient Disposition: Xfer SNF Discharge Diagnosis: uti Referrals: [facility] [Outside] - 1 Day (SHORT TERM REHAB) Brown Parada MD [Primary Care Provider] - 1 Week Discharge Medications: New doxycycline monohydrate 100 mg Capsule 100 mg PO Q12H Qty: 10 0RF metoprolol succinate 25 mg Tablet Extended Release 24 Hr 75 mg PO BID Qty: 0 0RF Protocol: Hold for SBP/HR < HOLD for SBP < : 90 HOLD for HR < : 60 ferrous sulfate 324 mg (65 mg iron) Tablet,Delayed Release (Dr/Ec) 324 mg PO DAILY Qty: 0 0RF Jardiance 10 mg Tablet 10 mg PO DAILY Qty: 0 0RF Continued trazodone 50 mg tablet 2 tab PO BEDTIME phenytoin sodium extended 100 mg capsule 300 mg PO DAILY lorazepam 2 mg tablet 1 tab PO TID PRN (Reason: Anxiety) pantoprazole 40 mg tablet,delayed release (DR/EC) 1 tab PO DAILY@0630 metformin 1,000 mg tablet 1 tab PO DAILY hydroxyzine HCl 25 mg tablet 1 tab PO TID PRN (Reason: Anxiety) oxycodone 5 mg tablet 1 tab PO BID PRN (Reason: Pain) Eliquis 5 mg tablet 1 tab PO BID Jardiance 10 mg tablet 1 tab PO DAILY atorvastatin 80 mg tablet 1 tab PO DAILY torsemide 20 mg tablet 2 tab PO DAILY gabapentin 400 mg capsule 1 cap PO 5XD cyanocobalamin (vitamin B-12) 1,000 mcg Tablet 1,000 mcg PO DAILY phenytoin sodium extended 100 mg capsule 400 mg PO BEDTIME quetiapine 100 mg tablet 1 tab PO BEDTIME PRN (Reason: Insomnia) acetaminophen 500 mg Tablet 1,000 mg PO BID PRN (Reason: Pain) guaifenesin 100 mg/5 mL Liquid 200 mg PO Q6H PRN (Reason: Cough) digoxin 125 mcg (0.125 mg) tablet 1 tab PO Q2D albuterol sulfate [ProAir HFA] 90 mcg/actuation Hfa Aerosol Inhaler 2 puff INHALATION Q4-6H PRN (Reason: Shortness Of Breath) fluticasone propionate 50 mcg/actuation [place],Suspension 1 spray INTRANASAL BID Rx Instructions: administer into each nostril cholecalciferol (vitamin D3) [Vitamin D3] 25 mcg (1,000 unit) Capsule 25 mcg PO DAILY insulin lispro 100 unit/mL insulin pen 2 - 10 unit subcut TIDAC duloxetine 30 mg capsule,delayed release(DR/EC) 30 mg PO DAILY duloxetine 30 mg capsule,delayed release(DR/EC) 60 mg PO BEDTIME insulin glargine [Lantus Solostar U-100 Insulin] 100 unit/mL (3 mL) insulin pen 20 unit subcut BEDTIME quetiapine 200 mg tablet 1 tab PO BID Discontinued isosorbide mononitrate 60 mg tablet extended release 24 hr 1 tab PO DAILY metoprolol succinate 25 mg tablet extended release 24 hr 3 tab PO BID Discharge Orders: Discharge Order (Routine); Ordered 07/21/22 Ordered By: Kun Diamond Diet: Advance to usual diet Activity on Discharge: As tolerated Stand Alone Forms: Patient Portal Discharge page Care Plan Goals: recovery Health Concerns: uti Plan of Treatment: 5 more days doxy Assessment: see above
[2022-07-21 12:46] LABS: COVID-19 Test Negative (Negative); IDNOW Serial# 16C4AD1C
[2022-07-21 15:43] VITALS: BP 107/60; PULSE 62; RESP 17; TEMP 36.2; O2SAT 95
[2022-07-21 16:00] LABS: Glucose, Whole Blood 162 mg/dL (60-115)
[2022-07-21] MEDS: Insulin Lispro 100 UNIT/ML 3 ML VIAL SUBCUT ×2 (17:07→20:36)
[2022-07-21 20:23] LABS: Glucose, Whole Blood 215 mg/dL (60-115)
[2022-07-21] MEDS: Magnesium Hydrox/Alum Hydrox 30 ML ORAL.SUSP PO (20:23)
[2022-07-21] MEDS: Phenytoin Sodium Extended 100 MG CAPSULE 400 MG PO (20:23)
[2022-07-21] MEDS: DULoxetine HCl 60 MG CAPSULE.DR PO (20:24)
[2022-07-21] MEDS: traZODone HCL 100 MG TABLET PO (20:24)
[2022-07-21] MEDS: Insulin Glargine,Hum.rec.anlog 100 UNIT/ML 10 ML VIAL 20 UNIT SUBCUT (20:36)
== END 2022-07-21 20:50 | disposition skilled nursing facility (03) | DRG 463 ==
LOC: HO.ED 07-11 22:41 → HO.EDOVER 07-12 00:25 → HO.S3 07-12 02:37
PROVIDERS: Family Medicine; Internal Medicine; Physician Assistant; Student in an Organized Health Care Education/Training Program; Admitting Provider Student in an Organized Health Care Education/Training Program; Emergency Provider Emergency Medicine; PCP Family Medicine; Visit Provider Internal Medicine
DX: N39.0 Urinary tract infection, site not specified (principal); J96.11 Chronic respiratory failure with hypoxia; E87.21 Acute metabolic acidosis; E11.40 Type 2 diabetes mellitus with diabetic neuropathy, unspecified; D50.9 Iron deficiency anemia, unspecified; B95.61 Methicillin susceptible Staphylococcus aureus infection as the cause of diseases classified elsewhere; E11.65 Type 2 diabetes mellitus with hyperglycemia; Z99.81 Dependence on supplemental oxygen; E66.01 Morbid (severe) obesity due to excess calories; F43.10 Post-traumatic stress disorder, unspecified; J45.20 Mild intermittent asthma, uncomplicated; I48.0 Paroxysmal atrial fibrillation; Z68.42 Body mass index [BMI] 45.0-49.9, adult; Z20.822 Contact with and (suspected) exposure to COVID-19; Z86.73 Personal history of transient ischemic attack (TIA), and cerebral infarction without residual deficits; Z99.3 Dependence on wheelchair; Z91.040 Latex allergy status; Z88.0 Allergy status to penicillin; Z79.01 Long term (current) use of anticoagulants; Z79.51 Long term (current) use of inhaled steroids; Z79.4 Long term (current) use of insulin; Z79.84 Long term (current) use of oral hypoglycemic drugs; Z79.899 Other long term (current) drug therapy
CPT/HCPCS: 0241U; 36415; 71045; 72131; 74176; 80048; 80053; 80202; 81001; 82947; 83540; 83605; 84484; 85025; 85027; 87040; 87086; 87088; 87186; 87635; 93005; 97110; 97116; 97162; 97530; 99285; J0696; J2405; J3370; J3371

== ENCOUNTER 2022-07-27 21:13 | Inpatient (IN) | payer OTHER, SELFPAY ==
--- NOTE | ~2022-07-27 | CT_ITS ---
EXAMINATION: CT ABDOMEN AND PELVIS WITHOUT CONTRAST CLINICAL INFORMATION: Left lower quadrant pain COMPARISON: Previous CT most recent July 2022 TECHNIQUE: Multidetector volumetric imaging was performed from the superior aspect of the liver through the pubic symphysis. Sagittal and coronal reformatted images were obtained on the technologist's workstation. This CT examination was performed using dose optimization techniques as appropriate, variously including the following: *Automated exposure control *Adjustment of mA and/or kV according to patient size (this includes techniques or standardized protocols for targeted exams where dose is matched to indication/reason for exam; i.e. extremities or head) *Use of iterative reconstruction technique DLP: 1059 mGy-cm FINDINGS: LUNG BASES: The visualized lung bases are unremarkable. LIVER, GALLBLADDER, AND BILIARY TREE: The liver is normal in size, shape, and attenuation. No focal hepatic lesion or biliary ductal dilatation is present. The gallbladder is contracted. There is high attenuation in the gallbladder suggestive of a small gallstone. PANCREAS: Unremarkable. SPLEEN: Slightly enlarged measuring 15.8 cm in length. ADRENAL GLANDS: Unremarkable. KIDNEYS AND URETERS: The kidneys are normal in size, shape, and attenuation. No hydronephrosis, hydroureter, or calculi seen. No perinephric stranding. BLADDER: Unremarkable. GASTROINTESTINAL TRACT: The small and large bowel are unremarkable. The appendix is not seen. ABDOMINAL WALL: No significant hernia is appreciated. LYMPH NODES: Normal. VASCULAR: Unremarkable. PELVIC VISCERA: Unremarkable. OSSEOUS STRUCTURES: Degenerative changes of the spine. Old T11 compression fracture. New mild T12 compression fracture. CT/CT abdomen pelvis wo IV con IMPRESSION: Slightly enlarged spleen. Gallstone. New mild T12 vertebral body compression fracture. Old T11 compression fracture. Fleischner guidelines were followed.
--- NOTE | ~2022-07-27 | XR_ITS ---
EXAMINATION: XR CHEST CLINICAL INFORMATION: Fever COMPARISON: Previous chest x-ray most recent 07/21/2022 TECHNIQUE: Frontal view of the chest was obtained. FINDINGS: No significant abnormality is noted involving the heart, lungs, mediastinum, bony thorax or soft tissues. There are degenerative changes of the spine. XR/XR chest 1V IMPRESSION: No evidence for acute disease in the chest.
[2022-07-27 21:26] VITALS: BP 102/70; BP 111/70; PULSE 100; PULSE 72; RESP 18; TEMP 36.8; O2SAT 98; BMI 33.1
--- NOTE | 2022-07-27 21:34 | ED.BACK ---
HPI - Back Pain/Injury General Chief Complaint: Back Pain/Injury Stated Complaint: BACK PAIN Time Seen by Provider: 07/27/22 21:32 History of Present Illness HPI Narrative: Patient with history of atrial fibrillation on Eliquis, insulin-dependent diabetes mellitus, mood disorder, morbid obesity, chronic opiates dependent, hypertension with chronic low back pain got worse after he fell in the bathtub 2 weeks ago went home on 07/21 after 2 weeks of stay in the ER from home him where he stayed for 4 days did not like the place comes here to look for some other place. Prior to the fall patient was able to manage with wheelchair now here too much pain CT scan showed chronic arthritic changes with broad-based disc herniation L4-L5 no bladder or bowel involvement Related Data Home Medications Medication Instructions Recorded Confirmed apixaban 5 mg tablet (Eliquis) 1 tab PO BID 07/08/22 07/28/22 hydroxyzine HCl 25 mg tablet 1 tab PO TID PRN Anxiety 07/08/22 07/28/22 lorazepam 2 mg tablet 1 tab PO TID PRN Anxiety 07/08/22 07/28/22 metformin 1,000 mg tablet 1 tab PO DAILY 07/08/22 07/28/22 oxycodone 5 mg tablet 1 tab PO BID PRN Pain 07/08/22 07/28/22 pantoprazole 40 mg tablet,delayed 1 tab PO DAILY@0630 07/08/22 07/28/22 release phenytoin sodium extended 100 mg 300 mg PO DAILY 07/08/22 07/28/22 capsule trazodone 50 mg tablet 2 tab PO BEDTIME 07/08/22 07/28/22 acetaminophen 500 mg tablet 1,000 mg PO BID PRN Pain 07/09/22 07/28/22 albuterol sulfate 90 mcg/actuation 2 puff inhalation Q4-6H PRN 07/09/22 07/28/22 aerosol inhaler (ProAir HFA) Shortness Of Breath atorvastatin 80 mg tablet 1 tab PO DAILY 07/09/22 07/28/22 digoxin 125 mcg (0.125 mg) tablet 1 tab PO Q2D 07/09/22 07/28/22 duloxetine 30 mg capsule,delayed 30 mg PO DAILY 07/09/22 07/28/22 release duloxetine 30 mg capsule,delayed 60 mg PO BEDTIME 07/09/22 07/28/22 release fluticasone propionate 50 1 spray intranasal BID 07/09/22 07/28/22 mcg/actuation nasal spray,suspension gabapentin 400 mg capsule 1 cap PO 5XD 07/09/22 07/28/22 insulin glargine 100 unit/mL (3 20 unit subcut BEDTIME 07/09/22 07/28/22 mL) subcutaneous pen (Lantus Solostar U-100 Insulin) insulin lispro 100 unit/mL 2 - 10 unit subcut TIDAC 07/09/22 07/28/22 subcutaneous pen phenytoin sodium extended 100 mg 400 mg PO BEDTIME 07/09/22 07/28/22 capsule quetiapine 100 mg tablet 1 tab PO BEDTIME PRN Insomnia 07/09/22 07/28/22 quetiapine 200 mg tablet 1 tab PO BID 07/09/22 07/28/22 torsemide 20 mg tablet 2 tab PO DAILY 07/09/22 07/28/22 Previous Rx's Medication Instructions Recorded metoprolol succinate 25 mg 75 mg PO BID #0 tabs 07/21/22 tablet,extended release 24 hr Allergies Allergy/AdvReac Type Severity Reaction Status Date / Time aspirin Allergy Severe OCCASIONAL Verified 04/08/22 14:18 RASH / TONGUE SWELLING, Hives, throat swellig bee pollen [BEE STINGS] Allergy Severe ANAPHYLAXIS Verified 04/08/22 14:18 Penicillins Allergy Severe ANAPHYLAXIS Verified 04/08/22 14:18 povidone-iodine [Betadine] Allergy Severe Redness of Verified 04/08/22 14:18 Skin soap [Betadine] Allergy Severe Redness of Verified 04/08/22 14:18 Skin spider venom [SPIDER BITES] Allergy Severe Hives Verified 04/08/22 14:18 amoxicillin Allergy Intermediate Hives Verified 04/08/22 14:18 clindamycin Allergy Mild RASH Verified 04/08/22 14:18 latex [Latex] Allergy Mild RASH Verified 04/08/22 14:18 shrimp Allergy Hives Verified 06/21/22 11:48 bupropion [From WELLBUTRIN] AdvReac Severe SEIZURES Verified 04/08/22 14:18 adhesive tape AdvReac Mild Rash Verified 04/14/22 15:55 Review of Systems Review of Systems: Yes all other systems are reviewed and are negative PMFSH Past Medical History Medical History Anxiety Arthritis Asthma Atrial fibrillation with rapid ventricular response Coronary artery disease Diabetes mellitus, type 2 Fall Hypertension Multifactorial gait disorder Obesity PTSD (post-traumatic stress disorder) TIA (transient ischemic attack) Transient ischemic attack (TIA) Weakness Social History Social History Household Members: None Housing: Apartment Do you presently have visiting nurse or other home services: No Alcohol intake: never Patient Tobacco Use Status: Never used Tobacco Smoked in Last 30 Days: No Second Hand Smoke Exposure: No Advance Directives: Yes Advance Directives on File: Yes Advance Directives Date on File: 04/14/22 service: No Current occupational status: disabled Physical Exam Vital Signs: Vital Signs: Last Vital Signs Temp 97.8 F 07/28/22 05:19 Pulse 99 07/28/22 05:19 Resp 19 07/28/22 05:19 BP 115/64 07/28/22 05:19 Pulse Ox 97 07/28/22 05:19 O2 Del Method 07/28/22 05:19 O2 Flow Rate 2 07/28/22 02:33 Oxygen Flow Rate 4 07/27/22 21:26 BMI result Body Mass Index 33.1 Appearance: Alert. Oriented X3. No acute distress. Eyes: PERRLA, No Nystagmus ENT: Pharynx normal. Oral Mucosa moist Neck: Normal inspection. Neck supple. CVS: Tachycardia irregular irregular. Pulses normal. Respiratory: No respiratory distress. Equal air entry bilateral, no wheezing/rales/rhonchi Abdomen: Soft and nontender. Bowel sounds are present, no mass palpable, no CVA tenderness Skin: Skin warm and dry. Normal skin color. Normal skin turgor. Extremities: No lower extremity edema. No calf tenderness back: Diffuse tenderness in the low lumbar area SLR negative bilaterally neurovascular intact Neuro: Oriented X 3. No motor deficit. No sensory deficit. Medications Administered Generic Name Dose Route Start Last Admin Trade Name Freq PRN Reason Stop Dose Admin Apixaban 5 mg 07/28/22 01:15 07/28/22 02:04 Apixaban 5 Mg Tablet PO 5 mg BID YOHAN Administration Duloxetine HCl 60 mg 07/28/22 01:15 07/28/22 02:04 Duloxetine Hcl 60 Mg Capsule.Dr PO 60 mg BEDTIME YOHAN Administration Insulin Glargine 20 unit 07/28/22 01:15 07/28/22 02:05 Insulin Glargine,Hum.Rec.Anlog 100 Unit/Ml 10 Ml Vial SUBCUT 20 unit BEDTIME YOHAN Administration Metoprolol Succinate 75 mg 07/28/22 01:15 07/28/22 02:04 Metoprolol Succinate Er 25 Mg Tab.Er.24h PO 75 mg BID YOHAN Administration Protocol Phenytoin Sodium 400 mg 07/28/22 01:15 07/28/22 02:04 Phenytoin Sodium Extended 100 Mg Capsule PO 400 mg BEDTIME YOHAN Administration Quetiapine Fumarate 200 mg 07/28/22 01:15 07/28/22 02:04 Quetiapine Fumarate 200 Mg Tablet PO 200 mg BID YOHAN Administration Trazodone HCl 100 mg 07/28/22 01:15 07/28/22 02:04 Trazodone Hcl 100 Mg Tablet PO 100 mg BEDTIME YOHAN Administration Discontinued Medications Generic Name Dose Route Start Last Admin Trade Name Freq PRN Reason Stop Dose Admin Diltiazem HCl 10 mg 07/28/22 01:25 07/28/22 02:03 Diltiazem Hcl 50 Mg/10 Ml Vial IVPUSH 07/28/22 01:26 10 mg STAT STA Administration Metoprolol Tartrate 5 mg 07/28/22 02:15 07/28/22 02:22 Metoprolol Tartrate 5 Mg/5 Ml Vial IVPUSH 07/28/22 02:16 5 mg ONCE ONE Administration Morphine Sulfate 4 mg 07/28/22 02:15 07/28/22 02:22 Morphine Sulfate 4 Mg/Ml Cartridge IVPUSH 07/28/22 02:16 4 mg ONCE ONE Administration Protocol Oxycodone HCl 10 mg 07/27/22 21:44 07/27/22 22:39 Oxycodone Hcl Immed Release 5 Mg Tablet PO 07/27/22 21:45 10 mg ONCE ONE Administration Medical Decision Making Medical Decision Making MDM Narrative: Patient with chronic back pain unable to take care of himself , wheelchair-bound came because of pain and place will get cares management involved for placement during stay in the ER patient had dated fibrillation with fast ventricular rate which responded to Lopressor and Cardizem patient missed his medication which resumed during stay in the ER heart rate was stable will continue his oral medication case discussed case management for placement Lab Data MDM Lab Attestation statement: I reviewed the patient's lab results. 07/28/22 01:42 07/28/22 01:42 Labs: Lab Results 07/28/22 07/28/22 07/28/22 Range/Units 00:47 01:25 01:42 WBC 6.6 (4.8-10.8) X10*3/uL RBC 4.98 (4.60-5.80) X10*6/uL Hgb 10.9 L (14.0-18.0) g/dl Hct 38.0 L (42.0-52.0) % MCV 76.3 L (80.0-98.0) fL MCH 21.9 L (27.0-33.0) pg MCHC 28.7 L (31.0-36.0) g/dl RDW 19.1 H (11.0-16.0) % Plt Count 401 H (160-400) X10*3/uL MPV 9.6 (9.4-12.4) fL Immature Gran % (Auto) 0.2 (0.0-0.4) % Neut % (Auto) 68.5 (45-73) % Lymph % (Auto) 22.4 (20-40) % [place] % (Auto) 8.2 (2-11) % Eos % (Auto) 0.5 (0-4) % Baso % (Auto) 0.2 (0-2) % Lymph # (Auto) 1.5 (1.2-4.9) X10*3/uL [place] # (Auto) 0.5 (0.1-1.2) X10*3/uL Eos # (Auto) 0.0 (0.0-0.4) X10*3/uL Baso # (Auto) 0.0 (0.0-0.2) X10*3/uL Abs Immat Gran (auto) 0.01 (0.00-0.03) X10*3/uL Absolute Neuts (auto) 4.5 (2.0-8.3) x10*3/uL Absolute Nucleated RBC 0.000 (0.0-0.012) X10*3/uL Nucleated RBC % (auto) 0.0 (0.0-0.2) /100WBC Sodium (135-145) mmol/L Potassium (3.3-5.1) mmol/L Chloride (96-108) mmol/L Carbon Dioxide (22-29) mmol/L Anion Gap (12-20) BUN (9-16) mg/dL Creatinine (0.5-1.4) mg/dL Estim Creat Clear Calc Estimated GFR POC Glucose 122 H (60-115) mg/dL Random Glucose (60-115) mg/dL Calcium (8.4-10.2) mg/dL Total Bilirubin (0.0-1.0) mg/dL AST (5-37) U/L ALT (0-40) U/L Alkaline Phosphatase (39-117) U/L Total Protein (6.5-8.0) g/dL Albumin (3.5-5.0) g/dL Phenytoin (10.0-20.0) ug/mL COVID-19 (ANNA) Negative (Negative) COVID-19 Clin Com See Note 07/28/22 07/28/22 Range/Units 01:42 01:42 WBC (4.8-10.8) X10*3/uL RBC (4.60-5.80) X10*6/uL Hgb (14.0-18.0) g/dl Hct (42.0-52.0) % MCV (80.0-98.0) fL MCH (27.0-33.0) pg MCHC (31.0-36.0) g/dl RDW (11.0-16.0) % Plt Count (160-400) X10*3/uL MPV (9.4-12.4) fL Immature Gran % (Auto) (0.0-0.4) % Neut % (Auto) (45-73) % Lymph % (Auto) (20-40) % [place] % (Auto) (2-11) % Eos % (Auto) (0-4) % Baso % (Auto) (0-2) % Lymph # (Auto) (1.2-4.9) X10*3/uL [place] # (Auto) (0.1-1.2) X10*3/uL Eos # (Auto) (0.0-0.4) X10*3/uL Baso # (Auto) (0.0-0.2) X10*3/uL Abs Immat Gran (auto) (0.00-0.03) X10*3/uL Absolute Neuts (auto) (2.0-8.3) x10*3/uL Absolute Nucleated RBC (0.0-0.012) X10*3/uL Nucleated RBC % (auto) (0.0-0.2) /100WBC Sodium 140 (135-145) mmol/L Potassium 3.9 (3.3-5.1) mmol/L Chloride 99 (96-108) mmol/L Carbon Dioxide 29 (22-29) mmol/L Anion Gap 16 (12-20) BUN 12 (9-16) mg/dL Creatinine 0.91 (0.5-1.4) mg/dL Estim Creat Clear Calc 114.5 Estimated GFR > 60 POC Glucose (60-115) mg/dL Random Glucose 110 (60-115) mg/dL Calcium 8.8 (8.4-10.2) mg/dL Total Bilirubin 0.4 (0.0-1.0) mg/dL AST 15 (5-37) U/L ALT 14 (0-40) U/L Alkaline Phosphatase 177 H (39-117) U/L Total Protein 6.8 (6.5-8.0) g/dL Albumin 3.6 (3.5-5.0) g/dL Phenytoin 7.8 L* (10.0-20.0) ug/mL COVID-19 (ANNA) (Negative) COVID-19 Clin Com Independent Interpretation I performed an independent interpretation of an: EKG Interpretation: Atrial fibrillation ventricular rate of [address] changes no acute ischemia Discharge Plan Discharge Clinical Impression: Chronic back pain, Physical deconditioning, Atrial fibrillation, Diabetes mellitus, type 2 Patient Disposition: Still a Patient Prescriptions: No Action trazodone 50 mg tablet 2 tab PO BEDTIME phenytoin sodium extended 100 mg capsule 300 mg PO DAILY lorazepam 2 mg tablet 1 tab PO TID PRN (Reason: Anxiety) pantoprazole 40 mg tablet,delayed release (DR/EC) 1 tab PO DAILY@0630 metformin 1,000 mg tablet 1 tab PO DAILY hydroxyzine HCl 25 mg tablet 1 tab PO TID PRN (Reason: Anxiety) oxycodone 5 mg tablet 1 tab PO BID PRN (Reason: Pain) Eliquis 5 mg tablet 1 tab PO BID atorvastatin 80 mg tablet 1 tab PO DAILY torsemide 20 mg tablet 2 tab PO DAILY gabapentin 400 mg capsule 1 cap PO 5XD phenytoin sodium extended 100 mg capsule 400 mg PO BEDTIME quetiapine 100 mg tablet 1 tab PO BEDTIME PRN (Reason: Insomnia) acetaminophen 500 mg Tablet 1,000 mg PO BID PRN (Reason: Pain) digoxin 125 mcg (0.125 mg) tablet 1 tab PO Q2D albuterol sulfate [ProAir HFA] 90 mcg/actuation Hfa Aerosol Inhaler 2 puff INHALATION Q4-6H PRN (Reason: Shortness Of Breath) fluticasone propionate 50 mcg/actuation [place],Suspension 1 spray INTRANASAL BID Rx Instructions: administer into each nostril insulin lispro 100 unit/mL insulin pen 2 - 10 unit subcut TIDAC duloxetine 30 mg capsule,delayed release(DR/EC) 30 mg PO DAILY duloxetine 30 mg capsule,delayed release(DR/EC) 60 mg PO BEDTIME insulin glargine [Lantus Solostar U-100 Insulin] 100 unit/mL (3 mL) insulin pen 20 unit subcut BEDTIME quetiapine 200 mg tablet 1 tab PO BID metoprolol succinate 25 mg Tablet Extended Release 24 Hr 75 mg PO BID Qty: 0 0RF Protocol: Hold for SBP/HR < HOLD for SBP < : 90 HOLD for HR < : 60
[2022-07-27] MEDS: oxyCODONE HCl Immed Release 5 MG TABLET 10 MG PO (22:39)
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
[2022-07-27 23:07] VITALS: BP 111/71; PULSE 81; RESP 18; TEMP 36.7; O2SAT 96
--- NOTE | 2022-07-27 23:58 | MHC.EDTECH ---
pt got something to eat vital were also taken
[2022-07-28] VITALS (7 sets, daily range): BP systolic 104–121; BP diastolic 45–76; PULSE 87–117; RESP 12–19; TEMP 36.5–36.8; O2SAT 95–97
--- NOTE | 2022-07-28 00:38 | ECG_ITS ---
Test Reason : BACK PAIN Blood Pressure : / mmHG Vent. Rate : 127 BPM Atrial Rate : 000 BPM P-R Int : 000 ms QRS Dur : 146 ms QT Int : 358 ms P-R-T Axes : 000 260 058 degrees QTc Int : 520 ms Atrial fibrillation with rapid ventricular response Right bundle branch block Possible Lateral infarct , age undetermined Inferior infarct (cited on or before 24-MAR-2020) Abnormal ECG When compared with ECG of 21-JUL-2022 10:45, Vent. rate has increased BY 48 BPM Referred By: Marc Noel Electronically Signed By:IRVING ORTEGA
[2022-07-28 01:11] LABS: COVID-19 Test Negative (Negative); IDNOW Serial# 6674DD1D
[2022-07-28 01:31] LABS: Glucose, Whole Blood 122 mg/dL (60-115)
[2022-07-28 01:49] LABS: Basophils Percent Auto 0.2 % (0-2); Eosinophils Percent Auto 0.5 % (0-4); Hemoglobin 10.9 g/dl (14.0-18.0); Imm Gran Abs Auto 0.01 X10*3/uL (0.00-0.03); Imm Gran Pct Auto 0.2 % (0.0-0.4); Lymphocytes Absolute Auto 1.5 X10*3/uL (1.2-4.9); Lymphocytes Percent Auto 22.4 % (20-40); MANUAL DIFF FLAG NO; Mean Corpuscular HGB Conc 28.7 g/dl (31.0-36.0); Mean Corpuscular Hemoglobin 21.9 pg (27.0-33.0); Mean Corpuscular Volume 76.3 fL (80.0-98.0); Mean Platelet Volume 9.6 fL (9.4-12.4); Monocytes Absolute Auto 0.5 X10*3/uL (0.1-1.2); Monocytes Percent Auto 8.2 % (2-11); Neutrophils Absolute Auto 4.5 x10*3/uL (2.0-8.3); Neutrophils Percent Auto 68.5 % (45-73); Platelet Count 401 X10*3/uL (160-400); Red Blood Count 4.98 X10*6/uL (4.60-5.80); Red Cell Distribution Width 19.1 % (11.0-16.0); White Blood Count 6.6 X10*3/uL (4.8-10.8)
[2022-07-28] MEDS: dilTIAZem HCL 50 MG/10 ML VIAL 10 MG IVPUSH (02:03)
[2022-07-28] MEDS: traZODone HCL 100 MG TABLET PO ×2 (02:04→21:09)
[2022-07-28] MEDS: Apixaban 5 MG TABLET PO ×3 (02:04→21:24)
[2022-07-28] MEDS: Metoprolol Succinate ER 25 MG TAB.ER.24H 75 MG PO ×3 (02:04→21:09)
[2022-07-28] MEDS: DULoxetine HCl 60 MG CAPSULE.DR PO ×2 (02:04→21:09)
[2022-07-28] MEDS: QUEtiapine Fumarate 200 MG TABLET PO ×3 (02:04→21:09)
[2022-07-28] MEDS: Phenytoin Sodium Extended 100 MG CAPSULE 400 MG PO ×2 (02:04→21:40)
[2022-07-28] MEDS: Insulin Glargine,Hum.rec.anlog 100 UNIT/ML 10 ML VIAL 20 UNIT SUBCUT (02:05)
[2022-07-28 02:14] LABS: Alanine Aminotransferase 14 U/L (0-40); Albumin Level 3.6 g/dL (3.5-5.0); Alkaline Phosphatase 177 U/L (39-117); Anion Gap 16 (12-20); Aspartate Amino Transferase 15 U/L (5-37); Bilirubin Total 0.4 mg/dL (0.0-1.0); Blood Urea Nitrogen 12 mg/dL (9-16); Calcium 8.8 mg/dL (8.4-10.2); Carbon Dioxide 29 mmol/L (22-29); Chloride 99 mmol/L (96-108); Creatinine Clr Calc Pharmacy 114.5; Estimated Glomerular Filt Rate > 60; Glucose Random 110 mg/dL (60-115); Potassium 3.9 mmol/L (3.3-5.1); Sodium 140 mmol/L (135-145); Total Protein 6.8 g/dL (6.5-8.0)
[2022-07-28 02:21] LABS: Phenytoin Dilantin 7.8 ug/mL (10.0-20.0)
[2022-07-28] MEDS: Morphine Sulfate 4 MG/ML CARTRIDGE IVPUSH (02:22)
[2022-07-28] MEDS: Metoprolol Tartrate 5 MG/5 ML VIAL IVPUSH (02:22)
[2022-07-28] MEDS: Omeprazole 20 MG CAPSULE.DR PO (06:49)
[2022-07-28] MEDS: Gabapentin 400 MG CAPSULE PO ×5 (06:49→21:09)
[2022-07-28 06:51] LABS: Glucose, Whole Blood 125 mg/dL (60-115)
--- NOTE | 2022-07-28 07:03 | PC.NURSE ---
assumed care of patient, pt aox3, VSS, resting comfortably in bed. awaiting PT/CM
--- NOTE | 2022-07-28 07:05 | PC.NURSE ---
Pt. rested in bed throughout the night. Pt. reported pain at 8/10 and was medicated with morphine. PT. is pending PT/Case mgmt for back pain d/t fall. Pt. alert and oriented, under no distress. Pt. on O2 at baseline. Pt. has hx of afib with rvr. Pt. observed with rapid heart rate and was medicated with diltiazem and metoprolol with good effect.
[2022-07-28] MEDS: Phenytoin Sodium Extended 100 MG CAPSULE 300 MG PO (07:40)
[2022-07-28] MEDS: LORazepam 1 MG TABLET 2 MG PO ×2 (07:40→21:15)
[2022-07-28] MEDS: Digoxin 0.125 MG TABLET PO (07:41)
[2022-07-28] MEDS: DULoxetine HCl 30 MG CAPSULE.DR PO (07:41)
[2022-07-28] MEDS: metFORMIN HCl 1,000 MG TABLET 1000 MG PO (07:41)
[2022-07-28] MEDS: Atorvastatin Calcium 80 MG TABLET PO (07:41)
[2022-07-28] MEDS: Torsemide 20 MG TABLET 40 MG PO (07:42)
[2022-07-28] MEDS: Acetaminophen 325 MG TABLET 975 MG PO (07:42)
--- NOTE | 2022-07-28 08:55 | PC.NURSE ---
PT at bedside for eval
[2022-07-28] MEDS: oxyCODONE HCl Immed Release 5 MG TABLET 10 MG PO (10:08)
--- NOTE | 2022-07-28 13:26 | MHC.CM.PN ---
UPDATES SENT TO SNF REFERRALS (HEIGHT AND WEIGHT AND MED LIST)
[2022-07-28 16:55] LABS: Glucose, Whole Blood 137 mg/dL (60-115)
--- NOTE | 2022-07-28 16:56 | PC.NURSE ---
Patient resting comfortably no distress noted BS obtained no insulin admin will CTM
[2022-07-28 20:55] LABS: Glucose, Whole Blood 121 mg/dL (60-115)
--- NOTE | 2022-07-28 21:17 | MHC.CM.ED ---
PT recommends another trial of STR, but may eventually need higher level of care. Darcie Nash of [facility] and Xin martinez. Additional referrals made 100 [address].
[2022-07-28] MEDS: hydrOXYzine HCL 25 MG TABLET PO (21:21)
[2022-07-28] MEDS: Fluticasone Propionate Nasal 16 GM SPRAY 1 SPRAY NOSTRIL-B (22:10)
--- NOTE | 2022-07-28 22:12 | PC.NURSE ---
PT medicated pre mar. pt is resting at this time with no sign of distress.
[2022-07-28] MEDS: oxyCODONE HCl Immed Release 5 MG TABLET PO (22:33)
--- NOTE | 2022-07-28 22:34 | PC.NURSE ---
Medicated pt for pain management.
[2022-07-29] MEDS: ondansetron HCL 4 MG/2 ML VIAL IVPUSH (00:05)
--- NOTE | 2022-07-29 00:17 | PC.NURSE ---
Pt. brought over from the Main ED. Pt. able to stand and pivot to transfer into hospital bed. Pt. was resting comfortably and watching tv. Pt then began to report nausea and had a small emesis. Pt. medicated with zofran per provider. Pt. currently resting in bed.
[2022-07-29] MEDS: Acetaminophen 325 MG TABLET 975 MG PO (01:12)
[2022-07-29 06:00] VITALS: BP 99/71; PULSE 82; RESP 18; TEMP 36.4; O2SAT 92
--- NOTE | 2022-07-29 06:34 | PC.NURSE ---
Pt. reporting pain at approx. 1230. Pt. medicated with PRN tylenol per AUG. Pt. also provided with heat packs for non-pharmacologic pain relief. Tylenol had no effect on pain. Pt. requesting something more for pain at 0315. Oxycodone 5mg and a lidocaine patch 4% ordered by . Order faxed to pharmacy and pt. medicated with same. Pt. now sleeping. VSS. No distress noted. Will continue to monitor.
[2022-07-29 07:17] LABS: Glucose, Whole Blood 139 mg/dL (60-115)
[2022-07-29] MEDS: Gabapentin 400 MG CAPSULE PO ×5 (07:18→21:31)
[2022-07-29] MEDS: Omeprazole 20 MG CAPSULE.DR PO (07:18)
--- NOTE | 2022-07-29 07:19 | PC.NURSE ---
Pt medicated to AUG. Meds pulled by night time babysitter RN however pt was asleep at the time. Meds were given by this RN.
[2022-07-29] MEDS: LORazepam 1 MG TABLET 2 MG PO ×2 (07:27→14:57)
--- NOTE | 2022-07-29 07:28 | PC.NURSE ---
Pt requested ativan for anxiety
[2022-07-29] MEDS: Metoprolol Succinate ER 25 MG TAB.ER.24H 75 MG PO (08:37)
[2022-07-29] MEDS: DULoxetine HCl 30 MG CAPSULE.DR PO (08:38)
[2022-07-29] MEDS: QUEtiapine Fumarate 200 MG TABLET PO ×2 (08:38→21:30)
[2022-07-29] MEDS: Atorvastatin Calcium 80 MG TABLET PO (08:38)
[2022-07-29] MEDS: Torsemide 20 MG TABLET 40 MG PO (08:38)
[2022-07-29] MEDS: metFORMIN HCl 1,000 MG TABLET 1000 MG PO (08:38)
[2022-07-29] MEDS: Apixaban 5 MG TABLET PO ×2 (08:38→21:30)
[2022-07-29] MEDS: Phenytoin Sodium Extended 100 MG CAPSULE 300 MG PO (09:16)
--- NOTE | 2022-07-29 10:17 | PC.NURSE ---
Pt ate 100% of breakfast. Resting comfortably.
[2022-07-29] MEDS: oxyCODONE HCl Immed Release 5 MG TABLET 10 MG PO ×2 (11:33→18:29)
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
--- NOTE | 2022-07-29 12:38 | PC.NURSE ---
Pt speaking with case management.
[2022-07-29 13:09] VITALS: BP 94/45; PULSE 88; RESP 16; O2SAT 97
[2022-07-29 13:11] LABS: Glucose, Whole Blood 136 mg/dL (60-115)
--- NOTE | 2022-07-29 13:25 | PC.NURSE ---
Pt sitting up on side of bed eating lunch
--- NOTE | 2022-07-29 13:30 | PC.NURSE ---
Pt laid back down in bed, HR increased 103-125 a fib.(known) pt asymptomatic
--- NOTE | 2022-07-29 14:27 | PC.NURSE ---
HR remains 80-98
[2022-07-29 14:28] VITALS: BP 93/56; PULSE 92; RESP 18; TEMP 36.7; O2SAT 97
--- NOTE | 2022-07-29 16:37 | PC.NURSE ---
Pts son called, his information was provided to casey saw operator Dari
--- NOTE | 2022-07-29 17:27 | MHC.CM.ED ---
CM was notified of RN in overflow that patient's son called with questions and concerns about HCP. CM spoke with patient. He just completed a HCP 2 days ago, with his sister, Marifer Moore( [phone]) as his HCP, replacing his brother who lives in [place]. Patient tells CM he is happy to name his son as alternate HCP, but feels he is too young and inexperienced to make sole decisions regarding his healthcare if necessary. CM will complete new HCP, with Zach as HCP#2. CM then called Zach Bartholomew ([phone]), who is very concerned about his father's wellbeing and his leaving STR. Zach is concerned about the amount of times his father is calling 911 and coming to the hospital. Zach states that [facility] is helping him with assisted living arrangements and is questioning if there is anything that CM can do to speed up the process. Zach states that EC said it could take months for his father to get into assisted living. CM also explained that there needs to be a payor source for assisted living. Pt has [employer]. CM explained that families and patients can work together regarding assisted living, but CM does not normally assist in those placements. CM explained that his father is in his right mind, has capacity and can make bad decisions. Explained that no one can force his father into assisted living or LTC if he has capacity and that he can leave a facility if he desires. Zach is understandably upset. Encouraged Zach to remain involved with his father and assist him to make better decisions. Explained that his father has requested that he be made HCP#2, but stressed that the HCP can only make decisions if the patient is deemed not capable of making his own decisions. Encouraged Zach to come in to visit his father. Explained that CM is working to find STR for his father, but it is difficult, as his father has left facilities in the past. CM explained that Zach's copy of the HCP would be with his father. No bed offers yet at this time. CM referred 100 [address] in state. Previous CM also referred to [facility].
--- NOTE | 2022-07-29 17:52 | MHC.EDTECH ---
Brought patient pitcher with ice filled with cranberry juice and a urinal.
--- NOTE | 2022-07-29 18:20 | MHC.CM.ED ---
New HCP completed at pt request.HCP #1 Marifer Teresa (sister) [phone] and HCP#2 Zach Navarro (son) [phone]. Copies given and uploaded into [facility] and [facility] [place]pan[place]. 3 facilities still reviewing and [facility].
[2022-07-29 18:40] LABS: Glucose, Whole Blood 138 mg/dL (60-115)
--- NOTE | 2022-07-29 21:03 | MHC.EDTECH ---
Brought patient a pitcher of cranberry juice with ice.
[2022-07-29 21:05] LABS: Glucose, Whole Blood 134 mg/dL (60-115)
[2022-07-29 21:27] VITALS: BP 90/50; PULSE 105; RESP 18; O2SAT 98
[2022-07-29] MEDS: DULoxetine HCl 60 MG CAPSULE.DR PO (21:30)
[2022-07-29] MEDS: traZODone HCL 100 MG TABLET PO (21:30)
[2022-07-29] MEDS: Insulin Glargine,Hum.rec.anlog 100 UNIT/ML 10 ML VIAL 20 UNIT SUBCUT (21:31)
--- NOTE | 2022-07-29 23:51 | PC.NURSE ---
pt a&o, no sob or chest pain, pt resting in bed watching TV. Pt requesting a drink and sandwich, pt given drink and food. no signs of distress at this time. Will continue to monitor.
[2022-07-29 23:55] VITALS: BP 96/52
[2022-07-30] MEDS: oxyCODONE HCl Immed Release 5 MG TABLET 10 MG PO ×4 (00:11→17:25)
[2022-07-30] MEDS: LORazepam 1 MG TABLET 2 MG PO ×3 (00:12→20:47)
--- NOTE | 2022-07-30 00:13 | PC.NURSE ---
pt medicated per mar for pain and anxiety, Will continue to monitor.
--- NOTE | 2022-07-30 03:32 | PC.NURSE ---
PO meds that were given at this time were given early with permission from Eyad WILKINS due to nausea, insomnia, anxiety and back pain. Pt awake, alert and oriented x 3 with c/o mild nausea and continued severe back pain.
[2022-07-30] MEDS: Omeprazole 20 MG CAPSULE.DR PO (05:55)
[2022-07-30] MEDS: Gabapentin 400 MG CAPSULE PO ×4 (05:56→20:43)
[2022-07-30] MEDS: Metoprolol Succinate ER 25 MG TAB.ER.24H 75 MG PO ×2 (06:24→20:44)
--- NOTE | 2022-07-30 06:29 | PC.NURSE ---
Since approximately 0300 the patients' HR has been slowly increasing, occasionally a high as 120-low 130's (with a lot of meladio). At this time I noted his HR to increase past 130 with movement and asked Eyad WILKINS if I could/should administer the pts AM PO Metoprolol and he requestred that I do. it has been give at this time. prior to administering his HR was 124, Afib, while at rest and his BP was 146/84. He was awake, alert, very forgetful but otherwise calm and cooperative. He takes PO meds and Po fluids without difficulty.
[2022-07-30 07:19] LABS: Glucose, Whole Blood 151 mg/dL (60-115)
[2022-07-30] MEDS: DULoxetine HCl 30 MG CAPSULE.DR PO (07:33)
[2022-07-30] MEDS: Torsemide 20 MG TABLET 40 MG PO (07:34)
[2022-07-30] MEDS: Apixaban 5 MG TABLET PO ×2 (07:34→20:43)
[2022-07-30] MEDS: Acetaminophen 325 MG TABLET 975 MG PO ×2 (07:34→17:24)
[2022-07-30] MEDS: Phenytoin Sodium Extended 100 MG CAPSULE 300 MG PO (07:34)
[2022-07-30] MEDS: Atorvastatin Calcium 80 MG TABLET PO (07:34)
[2022-07-30] MEDS: Digoxin 0.125 MG TABLET PO (07:34)
[2022-07-30] MEDS: metFORMIN HCl 1,000 MG TABLET 1000 MG PO (07:34)
[2022-07-30] MEDS: QUEtiapine Fumarate 200 MG TABLET PO ×2 (07:34→20:43)
[2022-07-30] MEDS: Insulin Lispro 100 UNIT/ML 3 ML VIAL SUBCUT ×2 (07:35→20:45)
[2022-07-30 07:43] VITALS: BP 117/62; PULSE 122; RESP 22; TEMP 38.7; O2SAT 96
[2022-07-30 08:59] VITALS: BP 112/65; PULSE 124; RESP 16; TEMP 38.3; O2SAT 93
--- NOTE | 2022-07-30 09:19 | PC.NURSE ---
tylenol given for temp. HR elevated, ED provider aware. came to bedside to eval patient. will draw repeat labs as ordered. patient is alert, oriented x4. abd is soft non tender. reports last BM yesterday. non productive cough noted
[2022-07-30 09:43] LABS: Appearance Urine Turbid; Color Urine Yellow; Glucose Urine UA Negative (Negative); Leukocyte Esterase Urine Moderate (2+) (Negative); Nitrite Urine Positive (Negative); PH 5.5 (5.0-9.0); Specific Gravity - Urine 1.025 (1.005-1.025); UMIC TRIGGER UACC YES; Urine Blood Small (1+) (Negative); Urine Ketones Trace mg/dL (Negative); Urine Protein 30 (1+) mg/dL (Neg-Trace)
[2022-07-30 09:45] LABS: Basophils Percent Auto 0.2 % (0-2); Hematocrit 39.4 % (42.0-52.0); Hemoglobin 11.2 g/dl (14.0-18.0); Imm Gran Pct Auto 0.4 % (0.0-0.4); Lymphocytes Absolute Auto 1.3 X10*3/uL (1.2-4.9); Lymphocytes Percent Auto 5.2 % (20-40); MANUAL DIFF FLAG SCAN; Mean Corpuscular HGB Conc 28.4 g/dl (31.0-36.0); Mean Corpuscular Hemoglobin 22.2 pg (27.0-33.0); Mean Corpuscular Volume 78.2 fL (80.0-98.0); Mean Platelet Volume 10.2 fL (9.4-12.4); Monocytes Absolute Auto 1.3 X10*3/uL (0.1-1.2); Monocytes Percent Auto 5.4 % (2-11); Neutrophils Absolute Auto 21.2 x10*3/uL (2.0-8.3); Neutrophils Percent Auto 88.8 % (45-73); Platelet Count 426 X10*3/uL (160-400); Red Blood Count 5.04 X10*6/uL (4.60-5.80); Red Cell Distribution Width 19.1 % (11.0-16.0); SCAN SMEAR FLAG 1; White Blood Count 23.9 X10*3/uL (4.8-10.8)
[2022-07-30 09:55] LABS: COVID-19 Test Negative (Negative); IDNOW Serial# 16C4AD1C; IDNOW Serial# BCCEAD1C; Influenza A Negative (Negative); Influenza B2 Negative (Negative)
--- NOTE | 2022-07-30 09:56 | MHC.CM.ED ---
Addendum entered by Claudia Boudreaux 07/30/22 10:26: Received notification from JORDAN Mckinney that patient will be admitted d/t urosepsis. Original Note: Patient remains in ER overflow. Clinical updates sent to facilities still following patient: [facility], [facility], [facility], [place], [place], and [place]. Continue to monitor for d/c needs.
[2022-07-30 10:03] LABS: SLIDE REVIEW VERIFIED
[2022-07-30 10:07] LABS: Alanine Aminotransferase 10 U/L (0-40); Albumin Level 3.5 g/dL (3.5-5.0); Alkaline Phosphatase 148 U/L (39-117); Anion Gap 12 (12-20); Aspartate Amino Transferase 13 U/L (5-37); Bilirubin Direct 0.2 mg/dL (0.0-0.5); Bilirubin Total 0.6 mg/dL (0.0-1.0); Blood Urea Nitrogen 13 mg/dL (9-16); Calcium 8.8 mg/dL (8.4-10.2); Carbon Dioxide 32 mmol/L (22-29); Chloride 97 mmol/L (96-108); Creatinine Clr Calc Pharmacy 104.2; Estimated Glomerular Filt Rate > 60; Glucose Random 123 mg/dL (60-115); Potassium 4.7 mmol/L (3.3-5.1); Sodium 136 mmol/L (135-145); Total Protein 6.5 g/dL (6.5-8.0)
[2022-07-30 10:19] LABS: Bacteria Urine 4+ (None Seen); Squamous Epithelial Cell Urine 0-2 /HPF (0-2); UACC Culture Trigger YES; WBC Clumps Urine Present; WBC Urine >50 /HPF (0-5)
--- NOTE | 2022-07-30 10:27 | ECG_ITS ---
Test Reason : TAXHYCARDIA Blood Pressure : / mmHG Vent. Rate : 126 BPM Atrial Rate : 000 BPM P-R Int : 000 ms QRS Dur : 148 ms QT Int : 354 ms P-R-T Axes : 000 -88 055 degrees QTc Int : 512 ms Atrial fibrillation with rapid ventricular response Left axis deviation Right bundle branch block Inferior infarct (cited on or before 24-MAR-2020) Abnormal ECG When compared with ECG of 28-JUL-2022 01:05, No significant changes seen Referred By: Faye Valdez Electronically Signed By:IRVING ORTEGA
[2022-07-30] MEDS: 0.9 % Sodium Chloride 1,000 ML 999 ML IV (11:00)
--- NOTE | 2022-07-30 11:37 | P.HPHOSP_ITS ---
History of Present Illness Date of Service: 07/30/22 Attending physician on admission: Jeovanny Arshad Chief Complaint: Fever, UTI Pt is a 62-year-old male with a PMH significant for?paroxysmal AFib on Eliquis, insulin-dependent diabetes, mood disorder, chronic pain on opioids, and HTN who developed a fever and leukocytosis after being in the ED overflow awaiting placement for rehab. Patient originally presented to the ED?on 07/08/2022 for evaluation after a mechanical fall at home and was found to have a UTI that grew Staphylococcus aureus. Was placed on 2 weeks of doxycycline by Infectious Disease. Patient was then discharged on 07/21/2022 to rehab. Pt left rehab AMA because he he did not like the way that rehab was structured. Patient states that he has had some fever, chills, nausea however no vomiting. Patient denies dysuria or polyuria. Patient claims he has actually been urinating less than normal. No shortness of breath. Denies chest pain/pressure, palpitations. Patient endorses acute constipation. States he normally has 3 bowel movements per day, however last bowel movement was 2 days ago. In the overflow patient was febrile at 101.6, tadchycardic at 122, tachypneic at 22. Labs were significant for leukocytosis of 23.9 with left shift, stable H&H 11.2/39.4. UA positive for UTI. CXR showed poor inspiratory effort, but no acute findings. CT of abdomen/pelvis largely unremarkable with slightly enlarged spleen, gallstone, and new mild T12 vertebral body compression. EKG demonstrated AFib with RVR 126 and right bundle branch block but no evidence of ST elevations or depressions. Pt was treated with IV and vancomycin. Pt will be admitted to the hospital for treatment of UTI with IV antibiotics. Review of Systems Review of Systems: Fever, chills Nausea, no vomiting Constipation x2 days Denies dysuria, polyuria Denies chest pain/pressure, palpitations Shortness of breath Yes all other systems are reviewed and are negative [facility] Medical History Anxiety Arthritis Asthma Atrial fibrillation with rapid ventricular response Coronary artery disease Diabetes mellitus, type 2 Fall Hypertension Multifactorial gait disorder Obesity PTSD (post-traumatic stress disorder) TIA (transient ischemic attack) Transient ischemic attack (TIA) Weakness Social History Household Members: None Housing: Apartment Do you presently have visiting nurse or other home services: No Alcohol intake: never Patient Tobacco Use Status: Never used Tobacco Smoked in Last 30 Days: No Second Hand Smoke Exposure: No Advance Directives: Yes Advance Directives on File: Yes Advance Directives Date on File: 04/14/22 service: No Current occupational status: disabled Meds Allergies Allergy/AdvReac Type Severity Reaction Status Date / Time aspirin Allergy Severe OCCASIONAL Verified 04/08/22 14:18 RASH / TONGUE SWELLING, Hives, throat swellig bee pollen [BEE STINGS] Allergy Severe ANAPHYLAXIS Verified 04/08/22 14:18 Penicillins Allergy Severe ANAPHYLAXIS Verified 04/08/22 14:18 povidone-iodine [Betadine] Allergy Severe Redness of Verified 04/08/22 14:18 Skin soap [Betadine] Allergy Severe Redness of Verified 04/08/22 14:18 Skin spider venom [SPIDER BITES] Allergy Severe Hives Verified 04/08/22 14:18 amoxicillin Allergy Intermediate Hives Verified 04/08/22 14:18 clindamycin Allergy Mild RASH Verified 04/08/22 14:18 latex [Latex] Allergy Mild RASH Verified 04/08/22 14:18 shrimp Allergy Hives Verified 06/21/22 11:48 bupropion [From WELLBUTRIN] AdvReac Severe SEIZURES Verified 04/08/22 14:18 adhesive tape AdvReac Mild Rash Verified 04/14/22 15:55 Active Medications: Current Medications Acetaminophen (Acetaminophen 325 Mg Tablet) 975 mg PO BID PRN PRN Reason: Pain Last Admin: 07/30/22 07:34 Dose: 975 mg Albuterol Sulfate (Albuterol Sulfate 90 Mcg 8 Gm Inhaler) 2 puff INHALE Q4H PRN PRN Reason: Shortness Of Breath Apixaban (Apixaban 5 Mg Tablet) 5 mg PO BID YOHAN Last Admin: 07/30/22 07:34 Dose: 5 mg Atorvastatin Calcium (Atorvastatin Calcium 80 Mg Tablet) 80 mg PO DAILY YOHAN Last Admin: 07/30/22 07:34 Dose: 80 mg Dextrose (Dextrose 50 % 25 Gm/50 Ml Syringe) 25 gm IVPUSH Q15M PRN; Protocol PRN Reason: per Hypoglycemia Standing Ord. Digoxin (Digoxin 0.125 Mg Tablet) 0.125 mg PO Q2D@0900 [facility] Last Admin: 07/30/22 07:34 Dose: 0.125 mg Duloxetine HCl (Duloxetine Hcl 30 Mg Capsule.) 30 mg PO DAILY [facility] Last Admin: 07/30/22 07:33 Dose: 30 mg Duloxetine HCl (Duloxetine Hcl 60 Mg Capsule.) 60 mg PO BEDTIME [facility] Last Admin: 07/29/22 21:30 Dose: 60 mg Fluticasone Propionate (Fluticasone Propionate Nasal 16 Gm Bryant) 1 spray NOSTRIL-B BID [facility] Last Admin: 07/30/22 07:35 Dose: Not Given Gabapentin (Gabapentin 400 Mg Capsule) 400 mg PO 5XD [facility] Last Admin: 07/30/22 10:14 Dose: 400 mg Glucose (Glucose Gel 15 Gm Gel..Gram.) 15 gm PO Q15M PRN; Protocol PRN Reason: per Hypoglycemia Standing Ord. Hydroxyzine HCl (Hydroxyzine Hcl 25 Mg Tablet) 25 mg PO TID PRN PRN Reason: Anxiety Last Admin: 07/28/22 21:21 Dose: 25 mg Vancomycin HCl (Vancomycin/Ns) 2,000 mg in 520 mls @ 260 mls/hr IV ONCE ONE Stop: 07/30/22 13:59 Insulin Glargine (Insulin Glargine,Hum.Rec.Anlog 100 Unit/Ml 10 Ml Vial) 20 unit SUBCUT BEDTIME [facility] Last Admin: 07/29/22 21:31 Dose: 20 unit Insulin Human Lispro (Insulin Lispro 100 Unit/Ml 3 Ml Vial) 0 unit SUBCUT QIDACHS [facility]; Protocol Last Admin: 07/30/22 07:35 Dose: 2 unit Lorazepam (Lorazepam 1 Mg Tablet) 2 mg PO TID PRN PRN Reason: Anxiety Last Admin: 07/30/22 03:27 Dose: 2 mg Metformin HCl (Metformin Hcl 1,000 Mg Tablet) 1,000 mg PO DAILY [facility] Last Admin: 07/30/22 07:34 Dose: 1,000 mg Metoprolol Succinate (Metoprolol Succinate Er 25 Mg Tab.Er.24h) 75 mg PO BID [facility]; Protocol Last Admin: 07/30/22 06:24 Dose: 75 mg Omeprazole (Omeprazole 20 Mg Capsule.) 20 mg PO DAILY@0630 [facility] Last Admin: 07/30/22 05:55 Dose: 20 mg Oxycodone HCl (Oxycodone Hcl Immed Release 5 Mg Tablet) 10 mg PO Q6H PRN PRN Reason: Pain, Moderate (Pain Scale 4-6 Last Admin: 07/30/22 10:14 Dose: 10 mg Phenytoin Sodium (Phenytoin Sodium Extended 100 Mg Capsule) 300 mg PO DAILY [facility] Last Admin: 07/30/22 07:34 Dose: 300 mg Phenytoin Sodium (Phenytoin Sodium Extended 100 Mg Capsule) 400 mg PO BEDTIME [facility] Last Admin: 07/28/22 21:40 Dose: 400 mg Quetiapine Fumarate (Quetiapine Fumarate 100 Mg Tablet) 100 mg PO BEDTIME PRN PRN Reason: Insomnia Quetiapine Fumarate (Quetiapine Fumarate 200 Mg Tablet) 200 mg PO BID [facility] Last Admin: 07/30/22 07:34 Dose: 200 mg Torsemide (Torsemide 20 Mg Tablet) 40 mg PO DAILY [facility]; Protocol Last Admin: 07/30/22 07:34 Dose: 40 mg Trazodone HCl (Trazodone Hcl 100 Mg Tablet) 100 mg PO BEDTIME [facility] Last Admin: 07/29/22 21:30 Dose: 100 mg Home Medications Medication Instructions Recorded Confirmed Last Taken Type apixaban 5 mg tablet (Eliquis) 1 tab PO BID 07/08/22 07/28/22 Unknown History hydroxyzine HCl 25 mg tablet 1 tab PO TID PRN Anxiety 07/08/22 07/28/22 Unknown History lorazepam 2 mg tablet 1 tab PO TID PRN Anxiety 07/08/22 07/28/22 Unknown History metformin 1,000 mg tablet 1 tab PO DAILY 07/08/22 07/28/22 Unknown History oxycodone 5 mg tablet 1 tab PO BID PRN Pain 07/08/22 07/28/22 Unknown History pantoprazole 40 mg tablet,delayed 1 tab PO DAILY@0630 07/08/22 07/28/22 Unknown History release phenytoin sodium extended 100 mg 300 mg PO DAILY 07/08/22 07/28/22 Unknown History capsule trazodone 50 mg tablet 2 tab PO BEDTIME 07/08/22 07/28/22 Unknown History acetaminophen 500 mg tablet 1,000 mg PO BID PRN Pain 07/09/22 07/28/22 Unknown History albuterol sulfate 90 mcg/actuation 2 puff inhalation Q4-6H PRN 07/09/22 07/28/22 Unknown History aerosol inhaler (ProAir HFA) Shortness Of Breath atorvastatin 80 mg tablet 1 tab PO DAILY 07/09/22 07/28/22 Unknown History digoxin 125 mcg (0.125 mg) tablet 1 tab PO Q2D 07/09/22 07/28/22 Unknown History duloxetine 30 mg capsule,delayed 30 mg PO DAILY 07/09/22 07/28/22 Unknown History release duloxetine 30 mg capsule,delayed 60 mg PO BEDTIME 07/09/22 07/28/22 Unknown History release fluticasone propionate 50 1 spray intranasal BID 07/09/22 07/28/22 Unknown History mcg/actuation nasal spray,suspension gabapentin 400 mg capsule 1 cap PO 5XD 07/09/22 07/28/22 Unknown History insulin glargine 100 unit/mL (3 20 unit subcut BEDTIME 07/09/22 07/28/22 Unknown History mL) subcutaneous pen (Lantus Solostar U-100 Insulin) insulin lispro 100 unit/mL 2 - 10 unit subcut TIDAC 07/09/22 07/28/22 Unknown History subcutaneous pen phenytoin sodium extended 100 mg 400 mg PO BEDTIME 07/09/22 07/28/22 Unknown History capsule quetiapine 100 mg tablet 1 tab PO BEDTIME PRN Insomnia 07/09/22 07/28/22 Unknown History quetiapine 200 mg tablet 1 tab PO BID 07/09/22 07/28/22 Unknown History torsemide 20 mg tablet 2 tab PO DAILY 07/09/22 07/28/22 Unknown History empagliflozin 10 mg tablet 10 mg PO DAILY 07/30/22 07/30/22 Unknown History (Jardiance) ferrous sulfate 324 mg (65 mg 324 mg PO DAILY 07/30/22 07/30/22 Unknown History iron) tablet,delayed release Physical Exam Vital Signs and Narrative: Vital Signs: Last Vital Signs Temp 101 F H 07/30/22 08:59 Pulse 124 H 07/30/22 08:59 Resp 16 07/30/22 08:59 BP 112/65 07/30/22 08:59 Pulse Ox 93 07/30/22 08:59 O2 Del Method 07/30/22 08:59 O2 Flow Rate 2 02/24/23 08:59 Oxygen Flow Rate 4 07/27/22 21:26 BMI result Body Mass Index 33.1 Constitutional: Alert, in no acute distress. Mental Status: Oriented to person, place and time. Eyes: Pupils are equal, round, and reactive to light. Ear, Nose, and Throat: Oropharynx clear, mucous membranes moist. Ears and nose without deformities. Trachea midline. Respiratory: Clear to auscultation bilaterally. No wheezing, rales, or rhonchi. Cardiovascular: Irrugularly irregular rhythm, tachycardic. No murmurs, rubs, or gallops. Gastrointestinal: Abdomen soft, non-distended, with periumbilical and lower right quadrant tenderness. Normal bowel sounds. Neurologic: Cranial nerves II-XII are grossly intact. No focal neurological deficits. Moves all extremities spontaneously. Skin: No rashes or lesions noted. Musculoskeletal: No cyanosis or clubbing. Extremities: Trace lower leg edema. Psychiatric: Normal mood and affect. Results Labs 07/30/22 09:34 07/30/22 09:34 Labs: Laboratory Results - last 24 hr 07/29/22 07/29/22 07/29/22 13:04 18:26 21:01 MCV MCH MCHC RDW Plt Count MPV Immature Gran % (Auto) Neut % (Auto) Lymph % (Auto) [place] % (Auto) Eos % (Auto) Baso % (Auto) Lymph # (Auto) [place] # (Auto) Eos # (Auto) Baso # (Auto) Abs Immat Gran (auto) Absolute Neuts (auto) Absolute Nucleated RBC Nucleated RBC % (auto) Smear Tech's Comments Anion Gap Estim Creat Clear Calc Estimated GFR POC Glucose 136 H 138 H 134 H Random Glucose Calcium Total Bilirubin Direct Bilirubin AST ALT Alkaline Phosphatase Total Protein Albumin Urine Color Urine Appearance Urine pH Ur Specific [place] Urine Protein Urine Glucose (UA) Urine Ketones Urine Blood Urine Nitrite Ur Leukocyte Esterase Urine RBC Urine WBC Urine WBC Clumps Ur Squamous Epith Cells Urine Bacteria Hyaline Casts COVID-19 (ANNA) COVID-19 Clin Com Influenza Type A (HUSSAIN) Influenza Type B (HUSSAIN) Influenza A & B Note 07/30/22 07/30/22 07/30/22 07:13 09:12 09:12 MCV MCH MCHC RDW Plt Count MPV Immature Gran % (Auto) Neut % (Auto) Lymph % (Auto) [place] % (Auto) Eos % (Auto) Baso % (Auto) Lymph # (Auto) [place] # (Auto) Eos # (Auto) Baso # (Auto) Abs Immat Gran (auto) Absolute Neuts (auto) Absolute Nucleated RBC Nucleated RBC % (auto) Smear Tech's Comments Anion Gap Estim Creat Clear Calc Estimated GFR POC Glucose 151 H Random Glucose Calcium Total Bilirubin Direct Bilirubin AST ALT Alkaline Phosphatase Total Protein Albumin Urine Color Urine Appearance Urine pH Ur Specific [place] Urine Protein Urine Glucose (UA) Urine Ketones Urine Blood Urine Nitrite Ur Leukocyte Esterase Urine RBC Urine WBC Urine WBC Clumps Ur Squamous Epith Cells Urine Bacteria Hyaline Casts COVID-19 (ANNA) Negative COVID-19 Clin Com See Note Influenza Type A (HUSSAIN) Negative Influenza Type B (HUSSAIN) Negative Influenza A & B Note See Note 07/30/22 07/30/22 07/30/22 09:13 09:34 09:34 MCV 78.2 L MCH 22.2 L MCHC 28.4 L RDW 19.1 H Plt Count 426 H MPV 10.2 Immature Gran % (Auto) 0.4 Neut % (Auto) 88.8 H Lymph % (Auto) 5.2 L [place] % (Auto) 5.4 Eos % (Auto) 0.0 Baso % (Auto) 0.2 Lymph # (Auto) 1.3 [place] # (Auto) 1.3 H Eos # (Auto) 0.0 Baso # (Auto) 0.0 Abs Immat Gran (auto) 0.10 H Absolute Neuts (auto) 21.2 H Absolute Nucleated RBC 0.000 Nucleated RBC % (auto) 0.0 Smear Tech's Comments VERIFIED Anion Gap 12 Estim Creat Clear Calc 104.2 Estimated GFR > 60 POC Glucose Random Glucose 123 H Calcium 8.8 Total Bilirubin 0.6 Direct Bilirubin 0.2 AST 13 ALT 10 Alkaline Phosphatase 148 H Total Protein 6.5 Albumin 3.5 Urine Color Yellow Urine Appearance Turbid Urine pH 5.5 Ur Specific [place] 1.025 Urine Protein 30 (1+) H Urine Glucose (UA) Negative Urine Ketones Trace Urine Blood Small (1+) H Urine Nitrite Positive H Ur Leukocyte Esterase Moderate (2+) H Urine RBC 3-5 H Urine WBC >50 H Urine WBC Clumps Present Ur Squamous Epith Cells 0-2 Urine Bacteria 4+ Hyaline Casts 3-5 COVID-19 (ANNA) COVID-19 Clin Com Influenza Type A (HUSSAIN) Influenza Type B (HUSSAIN) Influenza A & B Note Imaging Radiologist's Impressions: Impressions Chest X-Ray 07/30/22 09:35 IMPRESSION: No evidence for acute disease in the chest. Assessment and Plan (1) Acute UTI: Status: Acute (2) Sepsis: Status: Acute Plan Pt is a 62-year-old male with a PMH significant for?paroxysmal AFib on Eliquis, insulin-dependent diabetes, mood disorder, chronic pain on opioids, and HTN who developed a fever and leukocytosis after being in the ED overflow awaiting placement for rehab. Pt will be admitted to the hospital for treatment of UTI with IV antibiotics. Acute cystitis UA positive for UTI Previous culture on 07/09/2022 grew Staphtlococcus aureus Id consult IV abx: Vanco Follow cultures Sepsis Patient meets septic criteria: UTI, temperature of 101.6, tachycardic of 124, tachypneic of 22, lactic acid WNL Patient received IVF resuscitation Patient placed on broad-spectrum antibiotics: Vanco Abdominal pain Physical exam reveals right lower quadrant tenderness Patient states he normally has 2-3 bowel movements per day, last BM [address] of abdomen and pelvis show no acute abdominal findings, no constipation Acetaminophen for pain Colace for constipation Monitor bowel function HTN Continue antihypertensives Paroxysmal AFib Continue Eliquis, metoprolol, digoxin Insulin-dependent diabetes Hold home meds SSI, Lantus Chronic hypoxic respiratory failure On home O2 4 L, continue Mild intermittent asthma without acute exacerbation Continue home inhalers Seizure disorder Continue phenytoin Chronic iron deficiency anemia Continue iron supplementation Mood disorder Continue quetiapine, trazodone, duloxetine Full Code Attending:?Dr. Arshad DVT Prophylaxis: On Eliquis Pt will require a hospitalization of at least two nights for treatment of UTI with IV abx. Time Spent With Patient Time: Total time managing care of this patient today ____ minutes. Quality Stroke Does the patient have a stroke diagnosis?: No VTE Prior VTE?: No VTE Risk Level:: Medical - moderate - high VTE Device Contraindication: Treatment Not Indicated VTE Drug Contraindication: N/A - Med Ordered
[2022-07-30 13:01] LABS: Glucose, Whole Blood 124 mg/dL (60-115)
--- NOTE | 2022-07-30 14:04 | PHA.MEDREC ---
Pharmacy Consult ? Medication Reconciliation Pharmacy has reviewed the medication reconciliation by Renu. Attempted to contact [facility] to get medication list. nursing admin reported patient left AMA prior to the admission process being finished. Med rec done by discharge summary on 07/21. Empagliflozin and ferrous sulfate were new prescription on discharge summary that I added to home list. Informed Gabriele on the update. Diane Paredes, RandyD
--- NOTE | 2022-07-30 14:09 | PHA.PROG ---
Admission Date/Time: July 30, 2022 13:14 Indication: Sepsis Weight in k.202 kg Adjusted body weight in K.781 kg [place] body weight in K.5 kg Obesity Dosing Indication % IBW: 142% Serum Creatinine - Last 168 Hours 07/28/22 07/30/22 01:42 09:34 Creatinine 0.91 1.00 Estimated CrCl and GFR - Last 168 Hours 07/28/22 07/30/22 01:42 09:34 Estim Creat Clear Calc 114.5 104.2 Estimated GFR > 60 > 60 Vancomycin Loading Dose: 2000 mg Current Vancomycin Dosing Regimen: 1000 mg Q12H Date and Time for next Vancomycin Level to be drawn: 07/31 @ 2100 Pharmacist Comments on Vancomycin Plan: Patient is obese with %IBW > 130%, therefore careful monitor is required due to large volume of distribution. Patient received an adequate loading dose of vancomycin 05/29 @ 1213 Maintenanace dose vancomycin 1000 mg Q12H is schedule to start 07/30 @ 2300. Expected AUC 510 with a trough of 14.8 Level is schedule to be drawn prior to 4th dose Pharmacy will be monitor renal function daily. Diane Paredes, Trina Vancomycin dosing will take advantage of [employer] as a clinical decision support tool that uses Bayesian modeling to calculate individual patient's pharmacokinetic parameters and forecast the patient's drug concentration time course with the target goal AUC 24 range of 400 - 600 mg/L/hr.
[2022-07-30 17:16] VITALS: BP 111/71; PULSE 124; RESP 26; TEMP 38.3; O2SAT 93
[2022-07-30 20:23] LABS: Glucose, Whole Blood 158 mg/dL (60-115)
[2022-07-30 20:23] LABS: Glucose, Whole Blood 141 mg/dL (60-115)
[2022-07-30] MEDS: oxyCODONE HCl Immed Release 5 MG TABLET PO (20:43)
[2022-07-30] MEDS: DULoxetine HCl 60 MG CAPSULE.DR PO (20:43)
[2022-07-30] MEDS: Insulin Glargine,Hum.rec.anlog 100 UNIT/ML 10 ML VIAL 14 UNIT SUBCUT (20:44)
--- NOTE | 2022-07-30 20:56 | PC.NURSE ---
Addendum entered by Deysi Preston 07/30/22 21:04: Phenytoin med is not available, this nurse called hotel service supervisor to provide med for the patient. Original Note: Pt's BP is stable, Pt is on the continues night monitor and it shows sinus tachy due to urinary infection. Pt meds were administered as order by the MAr. Pt has pitch of water, commode and urinal at bedside. Pt is a/o x4, and he appears to be calm.
[2022-07-30] MEDS: traZODone HCL 100 MG TABLET PO (21:02)
[2022-07-30 21:45] VITALS: PULSE 100
--- NOTE | 2022-07-30 22:34 | PC.NURSE ---
RN outside plant supervisor was called for the meds not available. Pt is asleep unable to answer the . Pt is connected to the pvc monitor.
--- NOTE | 2022-07-30 22:52 | P.CNID_ITS ---
History of Present Illness Data of Consult Service Date: 07/30/22 Requesting physician: Alec Garcias Primary Care Provider: Brown Parada MD HPI Reason for consult: sepsis probable He presents with weakness and abdominal discomfort for the last week. He had temperature 101.6 and WBC 23.9 and tachycardia to 135. He had staph aureus 2/3 urine and given Macrobid. Urine and blood cultures pending. Review of Systems Review of Systems: Yes all other systems are reviewed and are negative [facility] Past Medical History Medical History Anxiety Arthritis Asthma Atrial fibrillation with rapid ventricular response Coronary artery disease Diabetes mellitus, type 2 Fall Hypertension Multifactorial gait disorder Obesity PTSD (post-traumatic stress disorder) TIA (transient ischemic attack) Transient ischemic attack (TIA) Weakness Family History Family history: reviewed and not pertinent Social History Social History Household Members: None Housing: Apartment Do you presently have visiting nurse or other home services: No Alcohol intake: never Patient Tobacco Use Status: Never used Tobacco Smoked in Last 30 Days: No Second Hand Smoke Exposure: No Advance Directives: Yes Advance Directives on File: Yes Advance Directives Date on File: 04/14/22 service: No Current occupational status: disabled Meds Allergies Allergy/AdvReac Type Severity Reaction Status Date / Time aspirin Allergy Severe OCCASIONAL Verified 04/08/22 14:18 RASH / TONGUE SWELLING, Hives, throat swellig bee pollen [BEE STINGS] Allergy Severe ANAPHYLAXIS Verified 04/08/22 14:18 Penicillins Allergy Severe ANAPHYLAXIS Verified 04/08/22 14:18 povidone-iodine [Betadine] Allergy Severe Redness of Verified 04/08/22 14:18 Skin soap [Betadine] Allergy Severe Redness of Verified 04/08/22 14:18 Skin spider venom [SPIDER BITES] Allergy Severe Hives Verified 04/08/22 14:18 amoxicillin Allergy Intermediate Hives Verified 04/08/22 14:18 clindamycin Allergy Mild RASH Verified 04/08/22 14:18 latex [Latex] Allergy Mild RASH Verified 04/08/22 14:18 shrimp Allergy Hives Verified 06/21/22 11:48 bupropion [From WELLBUTRIN] AdvReac Severe SEIZURES Verified 04/08/22 14:18 adhesive tape AdvReac Mild Rash Verified 04/14/22 15:55 Active Medications: Current Medications Acetaminophen (Acetaminophen 325 Mg Tablet) 975 mg PO BID PRN PRN Reason: Pain Last Admin: 07/30/22 17:24 Dose: 975 mg Acetaminophen (Acetaminophen 325 Mg Tablet) 650 mg PO Q6H PRN PRN Reason: Pain, Mild (Pain Scale 1-3) Albuterol Sulfate (Albuterol Sulfate 90 Mcg 8 Gm Inhaler) 2 puff INHALE Q4H PRN PRN Reason: Shortness Of Breath Apixaban (Apixaban 5 Mg Tablet) 5 mg PO BID [facility] Last Admin: 07/30/22 20:43 Dose: 5 mg Atorvastatin Calcium (Atorvastatin Calcium 80 Mg Tablet) 80 mg PO DAILY [facility] Last Admin: 07/30/22 07:34 Dose: 80 mg Dextrose (Dextrose 50 % 25 Gm/50 Ml Syringe) 25 gm IVPUSH Q15M PRN; Protocol PRN Reason: per Hypoglycemia Standing Ord. Digoxin (Digoxin 0.125 Mg Tablet) 0.125 mg PO Q2D@0900 [facility] Last Admin: 07/30/22 07:34 Dose: 0.125 mg Docusate Sodium (Docusate Sodium 100 Mg Capsule) 100 mg PO DAILY PRN PRN Reason: Constipation Duloxetine HCl (Duloxetine Hcl 30 Mg Capsule.) 30 mg PO DAILY [facility] Last Admin: 07/30/22 07:33 Dose: 30 mg Duloxetine HCl (Duloxetine Hcl 60 Mg Capsule.) 60 mg PO BEDTIME [facility] Last Admin: 07/30/22 20:43 Dose: 60 mg Empagliflozin (Empagliflozin 10 Mg Tablet) 10 mg PO DAILY [facility] Ferrous Sulfate (Ferrous Sulfate 324 Mg Tablet.) 324 mg PO DAILY [facility] Fluticasone Propionate (Fluticasone Propionate Nasal 16 Gm [place]) 1 spray NOSTRIL-B BID [facility] Last Admin: 07/30/22 22:33 Dose: Not Given Gabapentin (Gabapentin 400 Mg Capsule) 400 mg PO 5XD [facility] Last Admin: 07/30/22 20:43 Dose: 400 mg Glucose (Glucose Gel 15 Gm Gel..Gram.) 15 gm PO Q15M PRN; Protocol PRN Reason: per Hypoglycemia Standing Ord. Hydroxyzine HCl (Hydroxyzine Hcl 25 Mg Tablet) 25 mg PO TID PRN PRN Reason: Anxiety Last Admin: 07/28/22 21:21 Dose: 25 mg Vancomycin HCl 1,000 mg/ (Sodium Chloride) 270 mls @ 270 mls/hr IV Q12H [facility] Insulin Glargine (Insulin Glargine,Hum.Rec.Anlog 100 Unit/Ml 10 Ml Vial) 14 unit SUBCUT BEDTIME [facility] Last Admin: 07/30/22 20:44 Dose: 14 unit Insulin Human Lispro (Insulin Lispro 100 Unit/Ml 3 Ml Vial) 0 unit SUBCUT QIDACHS [facility]; Protocol Last Admin: 07/30/22 20:45 Dose: 2 unit Lorazepam (Lorazepam 1 Mg Tablet) 2 mg PO TID PRN PRN Reason: Anxiety Last Admin: 07/30/22 20:47 Dose: 2 mg Metoprolol Succinate (Metoprolol Succinate Er 25 Mg Tab.Er.24h) 75 mg PO BID [facility]; Protocol Last Admin: 07/30/22 20:44 Dose: 75 mg Omeprazole (Omeprazole 20 Mg Capsule.Dr) 20 mg PO DAILY@0630 [facility] Last Admin: 07/30/22 05:55 Dose: 20 mg Ondansetron HCl (Ondansetron Hcl 4 Mg/2 Ml Vial) 4 mg IVPUSH Q8H PRN PRN Reason: Nausea and Vomiting Oxycodone HCl (Oxycodone Hcl Immed Release 5 Mg Tablet) 10 mg PO Q6H PRN PRN Reason: Pain, Moderate (Pain Scale 4-6 Last Admin: 07/30/22 17:25 Dose: 10 mg Oxycodone HCl (Oxycodone Hcl Immed Release 5 Mg Tablet) 5 mg PO BID PRN PRN Reason: Pain, Severe (Pain Scale 7-10) Last Admin: 07/30/22 20:43 Dose: 5 mg Pharmacy Consult (Consult Rx Vancomycin Dosing) 1 each MISCELLANE DAILY PRN PRN Reason: Consult order Phenytoin Sodium (Phenytoin Sodium Extended 100 Mg Capsule) 300 mg PO DAILY [facility] Last Admin: 07/30/22 07:34 Dose: 300 mg Phenytoin Sodium (Phenytoin Sodium Extended 100 Mg Capsule) 400 mg PO BEDTIME [facility] Last Admin: 07/30/22 22:33 Dose: Not Given Quetiapine Fumarate (Quetiapine Fumarate 100 Mg Tablet) 100 mg PO BEDTIME PRN PRN Reason: Insomnia Quetiapine Fumarate (Quetiapine Fumarate 200 Mg Tablet) 200 mg PO BID [facility] Last Admin: 07/30/22 20:43 Dose: 200 mg Sodium Chloride (0.9 % Sodium Chloride Flush 3 Ml Syringe) 3 ml IVFLUSH QSHIFT [facility] Last Admin: 07/30/22 16:48 Dose: Not Given Torsemide (Torsemide 20 Mg Tablet) 40 mg PO DAILY [facility]; Protocol Last Admin: 07/30/22 07:34 Dose: 40 mg Trazodone HCl (Trazodone Hcl 100 Mg Tablet) 100 mg PO BEDTIME [facility] Last Admin: 07/30/22 21:02 Dose: 100 mg Home Medications Medication Instructions Recorded Confirmed Last Taken Type apixaban 5 mg tablet (Eliquis) 1 tab PO BID 07/08/22 07/28/22 Unknown History hydroxyzine HCl 25 mg tablet 1 tab PO TID PRN Anxiety 07/08/22 07/28/22 Unknown History lorazepam 2 mg tablet 1 tab PO TID PRN Anxiety 07/08/22 07/28/22 Unknown History metformin 1,000 mg tablet 1 tab PO DAILY 07/08/22 07/28/22 Unknown History oxycodone 5 mg tablet 1 tab PO BID PRN Pain 07/08/22 07/28/22 Unknown History pantoprazole 40 mg tablet,delayed 1 tab PO DAILY@0630 07/08/22 07/28/22 Unknown History release phenytoin sodium extended 100 mg 300 mg PO DAILY 07/08/22 07/28/22 Unknown History capsule trazodone 50 mg tablet 2 tab PO BEDTIME 07/08/22 07/28/22 Unknown History acetaminophen 500 mg tablet 1,000 mg PO BID PRN Pain 07/09/22 07/28/22 Unknown History albuterol sulfate 90 mcg/actuation 2 puff inhalation Q4-6H PRN 07/09/22 07/28/22 Unknown History aerosol inhaler (ProAir HFA) Shortness Of Breath atorvastatin 80 mg tablet 1 tab PO DAILY 07/09/22 07/28/22 Unknown History digoxin 125 mcg (0.125 mg) tablet 1 tab PO Q2D 07/09/22 07/28/22 Unknown History duloxetine 30 mg capsule,delayed 30 mg PO DAILY 07/09/22 07/28/22 Unknown History release duloxetine 30 mg capsule,delayed 60 mg PO BEDTIME 07/09/22 07/28/22 Unknown History release fluticasone propionate 50 1 spray intranasal BID 07/09/22 07/28/22 Unknown History mcg/actuation nasal spray,suspension gabapentin 400 mg capsule 1 cap PO 5XD 07/09/22 07/28/22 Unknown History insulin glargine 100 unit/mL (3 20 unit subcut BEDTIME 07/09/22 07/28/22 Unknown History mL) subcutaneous pen (Lantus Solostar U-100 Insulin) insulin lispro 100 unit/mL 2 - 10 unit subcut TIDAC 07/09/22 07/28/22 Unknown History subcutaneous pen phenytoin sodium extended 100 mg 400 mg PO BEDTIME 07/09/22 07/28/22 Unknown History capsule quetiapine 100 mg tablet 1 tab PO BEDTIME PRN Insomnia 07/09/22 07/28/22 Unknown History quetiapine 200 mg tablet 1 tab PO BID 07/09/22 07/28/22 Unknown History torsemide 20 mg tablet 2 tab PO DAILY 07/09/22 07/28/22 Unknown History empagliflozin 10 mg tablet 10 mg PO DAILY 07/30/22 07/30/22 Unknown History (Jardiance) ferrous sulfate 324 mg (65 mg 324 mg PO DAILY 07/30/22 07/30/22 Unknown History iron) tablet,delayed release Physical Exam Vital Signs: Vital Signs: Last Vital Signs Temp 101 F H 07/30/22 17:16 Pulse 100 07/30/22 21:45 Resp 26 H 07/30/22 17:16 BP 111/71 07/30/22 17:16 Pulse Ox 93 07/30/22 17:16 O2 Del Method 07/30/22 17:16 O2 Flow Rate 2 07/30/22 17:16 Oxygen Flow Rate 4 07/27/22 21:26 BMI result Body Mass Index 33.1 Const: General: cooperative HEENT: Head: Yes normal to inspection Face and sinus: Yes normal facial exa m Mouth: Normal oral and palatal mucosa present Teeth and gingiva: dentition normal Eyes: General: appearance normal, both eyes and all related structures Pupils: Equal, round and reactive pupils present Resp: Effort & Inspection: normal respiratory effort Cardio: Rate: regular rate Rhythm: regular rhythm GI: Palpation (GI): Soft to palpation and nontender : General: Yes no CVA tenderness Back/Spine/Pelvis: Back: no CVA tenderness Skin: General skin exam: no rashes or lesions noted Neuro: General: moves all extremities Cranial nerves: Yes Equal, round and reactive pupils present Extrem: General: Yes normal to inspection Psych: Other: sleepy,encephalopathic Results Labs 07/30/22 09:34 07/30/22 09:34 Labs: Short CBC 07/30/22 Range/Units 09:34 WBC 23.9 H (4.8-10.8) X10*3/uL Hgb 11.2 L (14.0-18.0) g/dl Hct 39.4 L (42.0-52.0) % Plt Count 426 H (160-400) X10*3/uL BMP 07/30/22 09:34 Sodium 136 Potassium 4.7 D Chloride 97 Carbon Dioxide 32 H BUN 13 Creatinine 1.00 Calcium 8.8 Liver Function 07/30/22 Range/Units 09:34 Total Bilirubin 0.6 (0.0-1.0) mg/dL Direct Bilirubin 0.2 (0.0-0.5) mg/dL AST 13 (5-37) U/L ALT 10 (0-40) U/L Alkaline Phosphatase 148 H (39-117) U/L Albumin 3.5 (3.5-5.0) g/dL Urine 07/30/22 Range/Units 09:13 Urine Color Yellow Urine Appearance Turbid Urine pH 5.5 (5.0-9.0) Ur Specific [place] 1.025 (1.005-1.025) Urine Protein 30 (1+) H (Neg-Trace) mg/dL Urine Glucose (UA) Negative (Negative) mg/dL Assessment and Plan (1) Sepsis: Status: Acute He probably has sepsis related to UTI. There is possible staph infection (2) Acute UTI: Status: Acute Plan Change to Vancomycin. Give Doxycycline 100 mg bid cover gram negatives. Await cultures. Time Spent With Patient Time: Total time managing care of this patient today ____ minutes.
[2022-07-30] MEDS: vancomycin HCL 1,000 MG in 0.9 % Sodium Chloride 250 ML 270 MG IV (23:14)
[2022-07-31] MEDS: Doxycycline Hyclate 100 MG in 0.9 % Sodium Chloride 250 ML 166.67 MG IV ×2 (00:15→23:06)
--- NOTE | 2022-07-31 00:48 | PC.NURSE ---
Pt's BP is stable, pt is sinus tachy on the monitor. Pt's meds were given as order.
[2022-07-31 04:00] VITALS: BP 103/37; PULSE 109; RESP 20; TEMP 37; O2SAT 94
--- NOTE | 2022-07-31 04:51 | PC.NURSE ---
Addendum entered by Deysi Preston 07/31/22 05:02: Provider has been notified about pt's soft BP. Original Note: Pt's BP is soft, this nurse has recycle V/S Q2H, Pt is afibrile. will continue to monitor.
[2022-07-31 05:19] VITALS: BP 106/58; PULSE 101; RESP 29; TEMP 37.4; O2SAT 92
[2022-07-31] MEDS: Lactated Ringers 500 ML 999 ML IV (05:24)
[2022-07-31] MEDS: Gabapentin 400 MG CAPSULE PO ×5 (05:28→21:15)
[2022-07-31] MEDS: Omeprazole 20 MG CAPSULE.DR PO (05:30)
--- NOTE | 2022-07-31 05:35 | PC.NURSE ---
Addendum entered by Deysi Preston 07/31/22 05:59: Pt BP is stable at 5:59. Original Note: 500 LR is running due to pt's hypotensive. Meds were given and johonny was changed.
[2022-07-31 06:35] LABS: Hematocrit 35.1 % (42.0-52.0); Hemoglobin 10.2 g/dl (14.0-18.0); Mean Corpuscular HGB Conc 29.1 g/dl (31.0-36.0); Mean Corpuscular Hemoglobin 23.1 pg (27.0-33.0); Mean Corpuscular Volume 79.4 fL (80.0-98.0); Mean Platelet Volume 11.2 fL (9.4-12.4); Platelet Count 323 X10*3/uL (160-400); Red Blood Count 4.42 X10*6/uL (4.60-5.80); Red Cell Distribution Width 19.2 % (11.0-16.0); White Blood Count 22.4 X10*3/uL (4.8-10.8)
--- NOTE | 2022-07-31 06:58 | PC.NURSE ---
Massage received at 650a, Lactic acid 3.0, . notified and the morning nurse.
[2022-07-31 07:09] LABS: Creatinine Clr Calc Pharmacy 118.4; Estimated Glomerular Filt Rate > 60
[2022-07-31] MEDS: Lactated Ringers 1,000 ML 100 ML IVCONT ×2 (07:26→17:41)
[2022-07-31] MEDS: Insulin Lispro 100 UNIT/ML 3 ML VIAL SUBCUT ×4 (07:30→21:18)
[2022-07-31 07:43] VITALS: BP 106/60; PULSE 79; RESP 23; TEMP 36.8; O2SAT 100
[2022-07-31] MEDS: Apixaban 5 MG TABLET PO ×2 (08:12→21:14)
[2022-07-31] MEDS: LORazepam 1 MG TABLET 2 MG PO ×2 (08:12→21:28)
[2022-07-31] MEDS: DULoxetine HCl 30 MG CAPSULE.DR PO (08:12)
[2022-07-31] MEDS: Empagliflozin 10 MG TABLET PO (08:12)
[2022-07-31] MEDS: Atorvastatin Calcium 80 MG TABLET PO (08:12)
[2022-07-31] MEDS: Ferrous Sulfate 324 MG TABLET.DR PO (08:12)
[2022-07-31] MEDS: Torsemide 20 MG TABLET 40 MG PO (08:15)
[2022-07-31] MEDS: QUEtiapine Fumarate 200 MG TABLET PO ×2 (08:16→21:14)
[2022-07-31 08:21] LABS: Reflex Lactate? Lactic Acid Added
--- NOTE | 2022-07-31 08:32 | PC.NURSE ---
Patient resting comfortably tolerating IVF and po food and fluids, remains on O2 with good effect will CTM
[2022-07-31 09:10] LABS: Glucose, Whole Blood 163 mg/dL (60-115)
[2022-07-31] MEDS: Phenytoin Sodium Extended 100 MG CAPSULE 300 MG PO (09:34)
[2022-07-31] MEDS: Metoprolol Succinate ER 25 MG TAB.ER.24H 75 MG PO ×2 (09:37→21:14)
--- NOTE | 2022-07-31 09:44 | PC.NURSE ---
pt AOx3. BP 112/72. Pt afebrile and resting comfortably. Meds given per order. Pt using urinal independently.
--- NOTE | 2022-07-31 09:56 | PC.NURSE ---
called pharmacy for Flonase. They are bringing it
[2022-07-31 09:57] LABS: ~Lactic Acid-LAB USE ONLY 2.7 mmol/L (0.5-2.0)
--- NOTE | 2022-07-31 10:00 | PC.NURSE ---
electronic device monitor intact, pt afib on monitor-pt baseline afib
--- NOTE | 2022-07-31 10:29 | P.PNIM_ITS ---
Subjective Subjective Date of Service: 07/31/22 Interval History: f/u on uti, cystitis iterval hisotry has some pain Physical Exam Vital Signs: Vital Signs: Last Vital Signs Temp 98.3 F 07/31/22 07:43 Pulse 79 07/31/22 07:43 Resp 23 H 07/31/22 07:43 BP 106/60 07/31/22 07:43 Pulse Ox 100 07/31/22 07:43 O2 Del Method 07/31/22 07:43 O2 Flow Rate 2 07/31/22 05:19 Oxygen Flow Rate 4 07/27/22 21:26 BMI result Body Mass Index 33.1 Const: Other: General: AO X 3, no acute distress Resp: CTA bilateral CVS: S1,S2,RRR GI: +BS, NT, no distention Skin: No rash Neuro: motor grossly intact Psych: appropriate affect Objective Data Active Medications Acetaminophen (Acetaminophen 325 Mg Tablet) 975 mg PO BID PRN PRN Reason: Pain Last Admin: 07/30/22 17:24 Dose: 975 mg Documented By: SUSAN Acetaminophen (Acetaminophen 325 Mg Tablet) 650 mg PO Q6H PRN PRN Reason: Pain, Mild (Pain Scale 1-3) Albuterol Sulfate (Albuterol Sulfate 90 Mcg 8 Gm Inhaler) 2 puff INHALE Q4H PRN PRN Reason: Shortness Of Breath Apixaban (Apixaban 5 Mg Tablet) 5 mg PO BID [facility] Last Admin: 07/31/22 08:12 Dose: 5 mg Documented By: JUAN Atorvastatin Calcium (Atorvastatin Calcium 80 Mg Tablet) 80 mg PO DAILY [facility] Last Admin: 07/31/22 08:12 Dose: 80 mg Documented By: JUAN Dextrose (Dextrose 50 % 25 Gm/50 Ml Syringe) 25 gm IVPUSH Q15M PRN; Protocol PRN Reason: per Hypoglycemia Standing Ord. Digoxin (Digoxin 0.125 Mg Tablet) 0.125 mg PO Q2D@0900 [facility] Last Admin: 07/30/22 07:34 Dose: 0.125 mg Documented By: SUSAN Docusate Sodium (Docusate Sodium 100 Mg Capsule) 100 mg PO DAILY PRN PRN Reason: Constipation Duloxetine HCl (Duloxetine Hcl 30 Mg Capsule.) 30 mg PO DAILY [facility] Last Admin: 07/31/22 08:12 Dose: 30 mg Documented By: JUAN Duloxetine HCl (Duloxetine Hcl 60 Mg Capsule.) 60 mg PO BEDTIME [facility] Last Admin: 07/30/22 20:43 Dose: 60 mg Documented By: DANIE Empagliflozin (Empagliflozin 10 Mg Tablet) 10 mg PO DAILY [facility] Last Admin: 07/31/22 08:12 Dose: 10 mg Documented By: JUAN Ferrous Sulfate (Ferrous Sulfate 324 Mg Tablet.) 324 mg PO DAILY [facility] Last Admin: 07/31/22 08:12 Dose: 324 mg Documented By: JUAN Fluticasone Propionate (Fluticasone Propionate Nasal 16 Gm [place]) 1 spray NOSTRIL-B BID [facility] Last Admin: 07/30/22 22:33 Dose: Not Given Documented By: DANIE Non-Admin Reason: Med Not Available Gabapentin (Gabapentin 400 Mg Capsule) 400 mg PO 5XD [facility] Last Admin: 07/31/22 09:36 Dose: 400 mg Documented By: ALTA Glucose (Glucose Gel 15 Gm Gel..Gram.) 15 gm PO Q15M PRN; Protocol PRN Reason: per Hypoglycemia Standing Ord. Hydroxyzine HCl (Hydroxyzine Hcl 25 Mg Tablet) 25 mg PO TID PRN PRN Reason: Anxiety Last Admin: 07/28/22 21:21 Dose: 25 mg Documented By: KYLE Vancomycin HCl 1,000 mg/ (Sodium Chloride) 270 mls @ 270 mls/hr IV Q12H [facility] Last Infusion: 07/31/22 00:14 Dose: 0 mls/hr Documented By: DANIE Doxycycline Hyclate 100 mg/ (Sodium Chloride) 250 mls @ 166.67 mls/hr IV Q12H [facility] Last Infusion: 07/31/22 01:45 Dose: 0 mls/hr Documented By: DANIE Lactated Ringer's (Lr) 1,000 mls @ 100 mls/hr IVCONT .Q10H [facility] Last Admin: 07/31/22 07:26 Dose: 100 mls/hr Documented By: JUAN Insulin Glargine (Insulin Glargine,Hum.Rec.Anlog 100 Unit/Ml 10 Ml Vial) 14 unit SUBCUT BEDTIME [facility] Last Admin: 07/30/22 20:44 Dose: 14 unit Documented By: DANIE Insulin Human Lispro (Insulin Lispro 100 Unit/Ml 3 Ml Vial) 0 unit SUBCUT QIDACHS [facility]; Protocol Last Admin: 07/31/22 07:30 Dose: 2 unit Documented By: JUAN Lorazepam (Lorazepam 1 Mg Tablet) 2 mg PO TID PRN PRN Reason: Anxiety Last Admin: 07/31/22 08:12 Dose: 2 mg Documented By: JUAN Metoprolol Succinate (Metoprolol Succinate Er 25 Mg Tab.Er.24h) 75 mg PO BID [facility]; Protocol Last Admin: 07/31/22 09:37 Dose: 75 mg Documented By: ALTA Omeprazole (Omeprazole 20 Mg Capsule.Dr) 20 mg PO DAILY@0630 [facility] Last Admin: 07/31/22 05:30 Dose: 20 mg Documented By: DANIE Ondansetron HCl (Ondansetron Hcl 4 Mg/2 Ml Vial) 4 mg IVPUSH Q8H PRN PRN Reason: Nausea and Vomiting Oxycodone HCl (Oxycodone Hcl Immed Release 5 Mg Tablet) 10 mg PO Q6H PRN PRN Reason: Pain, Moderate (Pain Scale 4-6 Last Admin: 07/30/22 17:25 Dose: 10 mg Documented By: SUSAN Oxycodone HCl (Oxycodone Hcl Immed Release 5 Mg Tablet) 5 mg PO BID PRN PRN Reason: Pain, Severe (Pain Scale 7-10) Last Admin: 07/30/22 20:43 Dose: 5 mg Documented By: DANIE Pharmacy Consult (Consult Rx Vancomycin Dosing) 1 each MISCELLANE DAILY PRN PRN Reason: Consult order Phenytoin Sodium (Phenytoin Sodium Extended 100 Mg Capsule) 300 mg PO DAILY [facility] Last Admin: 07/31/22 09:34 Dose: 300 mg Documented By: ALTA Phenytoin Sodium (Phenytoin Sodium Extended 100 Mg Capsule) 400 mg PO BEDTIME [facility] Last Admin: 07/30/22 22:33 Dose: Not Given Documented By: DANIE Non-Admin Reason: Med Not Available Quetiapine Fumarate (Quetiapine Fumarate 100 Mg Tablet) 100 mg PO BEDTIME PRN PRN Reason: Insomnia Quetiapine Fumarate (Quetiapine Fumarate 200 Mg Tablet) 200 mg PO BID [facility] Last Admin: 07/31/22 08:16 Dose: 200 mg Documented By: JUAN Sodium Chloride (0.9 % Sodium Chloride Flush 3 Ml Syringe) 3 ml IVFLUSH QSHIFT [facility] Last Admin: 07/31/22 07:27 Dose: Not Given Documented By: JUAN Non-Admin Reason: fluids running Torsemide (Torsemide 20 Mg Tablet) 40 mg PO DAILY [facility]; Protocol Last Admin: 07/31/22 08:15 Dose: 40 mg Documented By: JUAN Comments: n/a Trazodone HCl (Trazodone Hcl 100 Mg Tablet) 100 mg PO BEDTIME [facility] Last Admin: 07/30/22 21:02 Dose: 100 mg Documented By: DANIE Labs 07/31/22 05:46 07/31/22 05:46 Labs: Laboratory Results - last 24 hr 07/30/22 07/30/22 07/30/22 11:41 12:50 17:32 MCV MCH MCHC RDW Plt Count MPV Absolute Nucleated RBC Nucleated RBC % (auto) Estim Creat Clear Calc Estimated GFR POC Glucose 124 H 141 H Lactic Acid 2.0 Lactic Acid F/U @ 2Hr 07/30/22 07/31/22 07/31/22 20:20 05:46 05:46 MCV 79.4 L MCH 23.1 L MCHC 29.1 L RDW 19.2 H Plt Count 323 MPV 11.2 Absolute Nucleated RBC 0.000 Nucleated RBC % (auto) 0.0 Estim Creat Clear Calc 118.4 Estimated GFR > 60 POC Glucose 158 H Lactic Acid Lactic Acid F/U @ 2Hr 07/31/22 07/31/22 07/31/22 05:46 07:21 09:05 MCV MCH MCHC RDW Plt Count MPV Absolute Nucleated RBC Nucleated RBC % (auto) Estim Creat Clear Calc Estimated GFR POC Glucose 163 H Lactic Acid 3.0 H* Lactic Acid F/U @ 2Hr 2.7 H* Assessment and Plan (1) Acute UTI: Status: Acute (2) Sepsis: Status: Acute Plan 62-year-old male with a PMH significant for?paroxysmal AFib on Eliquis, insulin- dependent diabetes, mood disorder, chronic pain on opioids, and HTN who developed a fever and leukocytosis after being in the ED overflow awaiting placement for rehab.? Pt will be admitted to the hospital for treatment of UTI with IV antibiotics. Sepsis d/t Acute cystitis UA positive for UTI Previous culture on 07/09/2022 grew Staphtlococcus aureus Id consult recommends addint Doxy Abdominal pain--Better, CT no acute finding. continue bowel regimen HTN Continue antihypertensives Paroxysmal AFib Continue Eliquis, metoprolol, digoxin Insulin-dependent diabetes Hold home meds SSI, Lantus Chronic hypoxic respiratory failure On home O2 4 L, continue Mild intermittent asthma without acute exacerbation Continue home inhalers Seizure disorder Continue phenytoin Chronic iron deficiency anemia Continue iron supplementation Mood disorder Continue quetiapine, trazodone, duloxetine Need for inatient: UTI that needs IV Abx Time Spent With Patient Time: Total time managing care of this patient today ____ minutes. Quality Stroke Does the patient have a stroke diagnosis?: No VTE Prior VTE?: No VTE Risk Level:: Medical - moderate - high VTE Device Contraindication: Treatment Not Indicated VTE Drug Contraindication: N/A - Med Ordered
[2022-07-31] MEDS: Fluticasone Propionate Nasal 16 GM SPRAY 1 SPRAY NOSTRIL-B ×2 (10:35→21:14)
--- NOTE | 2022-07-31 10:35 | PC.NURSE ---
Mike arrived from pharmacy. Given to patient and returned to med room
--- NOTE | 2022-07-31 10:43 | PC.NURSE ---
pt AOx3. pt now states they are unable to use commode or urinal and were incontinent of urine. Pt changed and repositioned.
[2022-07-31 11:08] LABS: Reflex Lactate? 2 Y
[2022-07-31 12:13] LABS: ~Lactic Acid-LAB USE ONLY 1.7 mmol/L (0.5-2.0)
--- NOTE | 2022-07-31 12:21 | PC.NURSE ---
IV in the right hand pulled out by pt inadvertently. LR running through IV in right AC
[2022-07-31] MEDS: vancomycin HCL 1,000 MG in 0.9 % Sodium Chloride 250 ML 250 MG IV (12:41)
[2022-07-31] MEDS: Acetaminophen 325 MG TABLET 975 MG PO (12:43)
--- NOTE | 2022-07-31 12:45 | PC.NURSE ---
tracy ramsay per order
[2022-07-31] MEDS: oxyCODONE HCl Immed Release 5 MG TABLET 10 MG PO (14:15)
[2022-07-31] MEDS: Doxycycline Hyclate 100 MG in 0.9 % Sodium Chloride 250 ML 166.7 MG IV (14:30)
[2022-07-31 14:59] VITALS: BP 107/51; PULSE 103; RESP 15; O2SAT 93
--- NOTE | 2022-07-31 15:44 | PC.NURSE ---
There was an outstanding ekg on the patient worklist without an order showing, tiger texted Gabriele pal (JORDAN) to clarify, via tiger text it was stated the patient does NOT need another ekg.
[2022-07-31] MEDS: 0.9 % Sodium Chloride Flush 3 ML SYRINGE IVFLUSH (16:05)
--- NOTE | 2022-07-31 16:09 | PC.NURSE ---
Zaida finished. LR running again. Pt resting
--- NOTE | 2022-07-31 16:11 | MHC.CLN ---
Brought patient fresh ice water.
--- NOTE | 2022-07-31 17:42 | PC.NURSE ---
pt not given ordered insulin lispro, dinner tray has not arrived. Next bag of LR infusing
--- NOTE | 2022-07-31 18:29 | PC.NURSE ---
POC 171. Insulin Lispro given, pt has dinner tray. Gabapentin given per order
[2022-07-31 21:06] LABS: Glucose, Whole Blood 165 mg/dL (60-115)
[2022-07-31 21:06] LABS: Glucose, Whole Blood 171 mg/dL (60-115)
[2022-07-31 21:12] LABS: Glucose, Whole Blood 193 mg/dL (60-115)
[2022-07-31] MEDS: traZODone HCL 100 MG TABLET PO (21:14)
[2022-07-31] MEDS: DULoxetine HCl 60 MG CAPSULE.DR PO (21:14)
[2022-07-31] MEDS: Insulin Glargine,Hum.rec.anlog 100 UNIT/ML 10 ML VIAL 14 UNIT SUBCUT (21:15)
[2022-07-31] MEDS: Phenytoin Sodium Extended 100 MG CAPSULE 400 MG PO (21:15)
--- NOTE | 2022-07-31 21:19 | MHC.EDTECH ---
Patient care bed bath, change bed pads wet with urine, changed martinez wet with urine, and blanket. Patient able to push and pull himself up on the bed with head of bed lowered.
--- NOTE | 2022-07-31 21:21 | PC.NURSE ---
Pt's V/S are stable, pt is a fib on the monitor, pt's linen and lemuel changed, urinal and pitch of water at bedside. Pt has 2 IV lines. meds administered as order.
[2022-07-31 21:23] LABS: Vancomycin Trough 13.7 mcg/mL (10.0-20.0)
[2022-07-31] MEDS: oxyCODONE HCl Immed Release 5 MG TABLET PO (21:27)
[2022-07-31 21:57] VITALS: BP 103/48; PULSE 88; RESP 16; TEMP 37.1; O2SAT 96
[2022-07-31] MEDS: vancomycin HCL 1,000 MG in 0.9 % Sodium Chloride 250 ML 270 MG IV (23:05)
--- NOTE | 2022-07-31 23:18 | PC.NURSE ---
Pt's BP is soft but the time of the re-assessment. Meds are given as order by the MAR. Pt has 2 sandwiches and juice. will continue to monitor. Pt's
[2022-07-31 23:20] VITALS: BP 101/45; PULSE 97; RESP 16; TEMP 36.6; O2SAT 95
[2022-08-01] VITALS (7 sets, daily range): BP systolic 100–123; BP diastolic 53–70; PULSE 90–115; RESP 16–22; TEMP 36.6–37.2; O2SAT 92–97; BMI 33.1
--- NOTE | 2022-08-01 | MHC.EDTECH ---
0000 round done ,vitals sign taken ,pt had spill juice on him self ,care given clean martinez given ,pt was boosted up in bed ,pt said he was hungry ,had 2 tuna fish sandwich and cranberry juice .
[2022-08-01] MEDS: Lactated Ringers 1,000 ML 100 ML IVCONT (03:38)
[2022-08-01 03:44] LABS: Glucose, Whole Blood 222 mg/dL (60-115)
--- NOTE | 2022-08-01 06:00 | MHC.EDTECH ---
0600 rounding done ,vitals sign taken ,pt was reposition and boosted up in bed ,blood sugar taken ,fresh water and cranberry juice given .
[2022-08-01] MEDS: Omeprazole 20 MG CAPSULE.DR PO (06:09)
[2022-08-01] MEDS: Gabapentin 400 MG CAPSULE PO ×5 (06:09→22:08)
[2022-08-01 06:40] LABS: Glucose, Whole Blood 182 mg/dL (60-115)
--- NOTE | 2022-08-01 06:41 | PC.NURSE ---
This nurse took over at 19:00: This insurance underwriter sales went to change the old LR running due to the MAR protocol and has noticed that the bolus that was running it was a LR w/ Dex 5%. This nurse took safety precautions and re - check his POC twice afterwards. Pt remains stable and V/S are stable. Charge nurse has been notified.
--- NOTE | 2022-08-01 07:08 | PC.NURSE ---
Pt's V/S are stable, a fib on the monitor, urine output 600ml. Pt appears to be confused, and he asleep.
[2022-08-01 07:49] LABS: Creatinine Clr Calc Pharmacy 122.6; Estimated Glomerular Filt Rate > 60
[2022-08-01] MEDS: Phenytoin Sodium Extended 100 MG CAPSULE 300 MG PO (07:51)
[2022-08-01] MEDS: Torsemide 20 MG TABLET 40 MG PO (07:52)
[2022-08-01] MEDS: DULoxetine HCl 30 MG CAPSULE.DR PO (07:52)
[2022-08-01] MEDS: Empagliflozin 10 MG TABLET PO (07:53)
[2022-08-01] MEDS: QUEtiapine Fumarate 200 MG TABLET PO ×2 (07:53→22:08)
[2022-08-01] MEDS: LORazepam 1 MG TABLET 2 MG PO ×2 (07:53→22:20)
[2022-08-01] MEDS: Metoprolol Succinate ER 25 MG TAB.ER.24H 75 MG PO ×2 (07:53→22:08)
[2022-08-01] MEDS: Atorvastatin Calcium 80 MG TABLET PO (07:54)
[2022-08-01] MEDS: Ferrous Sulfate 324 MG TABLET.DR PO (07:54)
[2022-08-01] MEDS: Apixaban 5 MG TABLET PO ×2 (07:54→22:08)
[2022-08-01] MEDS: Digoxin 0.125 MG TABLET PO (07:54)
--- NOTE | 2022-08-01 08:04 | ECG_ITS ---
Test Reason : REPEAT Blood Pressure : / mmHG Vent. 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
[2022-08-01] MEDS: Fluticasone Propionate Nasal 16 GM SPRAY 1 SPRAY NOSTRIL-B (08:11)
--- NOTE | 2022-08-01 08:55 | PC.NURSE ---
ASSUMED CARE OF THIS PT AT 0700. PT REFUSED BREAKFAST AND POC. MEDS GIVEN DOCUMENTED, PRN ATIVAN REQUESTED BY PT, MED GIVEN PER ORDER. LR RUNNING AT 100 ML/HR, VSS.
--- NOTE | 2022-08-01 09:15 | PC.NURSE ---
assumed care of this patient at 915, patient a&ox2, vitals stable, pt child care education coordinator intact- afib on monitor, LR running at 100, fall precautions in tact, call womack within reach, will continue to monitor.
--- NOTE | 2022-08-01 10:34 | PC.NURSE ---
pt resting, reports back pain.
[2022-08-01] MEDS: oxyCODONE HCl Immed Release 5 MG TABLET 10 MG PO (11:20)
[2022-08-01] MEDS: cefTRIAXone sodium 1 GM in 0.9 % Sodium Chloride 50 ML IV (11:36)
[2022-08-01] MEDS: Phenazopyridine HCL 100 MG TABLET PO ×2 (11:46→18:21)
--- NOTE | 2022-08-01 11:48 | PC.NURSE ---
ceftriaxone infusing, medications given per order.
--- NOTE | 2022-08-01 11:50 | PC.NURSE ---
this nurse contacted Dr. Butterfield about the recurring order for the EKG that again showed on the worklist but he hadnt ordered one like what occurred yesterday, provider stated to do the EKG and he would deal with the recurring order after the ekg was performed. ekg was performed and a picture was tiger texted to the provider. the patient continues to be in afib which is his baseline.
[2022-08-01 12:46] LABS: Glucose, Whole Blood 157 mg/dL (60-115)
--- NOTE | 2022-08-01 12:51 | PC.NURSE ---
pt bed linens changed. Ceftriaxone finished infusing
[2022-08-01] MEDS: Doxycycline Hyclate 100 MG in 0.9 % Sodium Chloride 250 ML 166.7 MG IV ×2 (13:20→22:20)
[2022-08-01] MEDS: Insulin Lispro 100 UNIT/ML 3 ML VIAL SUBCUT ×3 (13:40→22:09)
--- NOTE | 2022-08-01 13:41 | P.PNIM_ITS ---
Subjective Subjective Date of Service: 08/01/22 Interval History: f/u on uti, cystitis Reporting dysuria No fever or chills overnight Review of Systems Resolved Fever, chills Improved Nausea, no vomiting Moved his bowels Reporting dysuria, no polyuria Denies chest pain/pressure, palpitations Physical Exam Vital Signs: Vital Signs: Last Vital Signs Temp 98.9 F 08/01/22 06:16 Pulse 95 08/01/22 08:04 Resp 22 H 08/01/22 08:04 BP 100/53 L 08/01/22 08:04 Pulse Ox 96 08/01/22 08:04 O2 Del Method 08/01/22 08:04 O2 Flow Rate 3 08/01/22 08:04 Oxygen Flow Rate 4 07/27/22 21:26 BMI result Body Mass Index 33.1 Const: Other: General: AO X 3, no acute distress Resp: CTA bilateral, no wheezing CVS: S1,S2,RRR GI: +BS, NT, no distention or tenderness Skin: No rash, dry Neuro: motor grossly intact Psych: appropriate affect Objective Data Active Medications Acetaminophen (Acetaminophen 325 Mg Tablet) 975 mg PO BID PRN PRN Reason: Pain Last Admin: 07/31/22 12:43 Dose: 975 mg Documented By: ALTA Acetaminophen (Acetaminophen 325 Mg Tablet) 650 mg PO Q6H PRN PRN Reason: Pain, Mild (Pain Scale 1-3) Albuterol Sulfate (Albuterol Sulfate 90 Mcg 8 Gm Inhaler) 2 puff INHALE Q4H PRN PRN Reason: Shortness Of Breath Apixaban (Apixaban 5 Mg Tablet) 5 mg PO BID [facility] Last Admin: 08/01/22 07:54 Dose: 5 mg Documented By: REBA Atorvastatin Calcium (Atorvastatin Calcium 80 Mg Tablet) 80 mg PO DAILY [facility] Last Admin: 08/01/22 07:54 Dose: 80 mg Documented By: REBA Dextrose (Dextrose 50 % 25 Gm/50 Ml Syringe) 25 gm IVPUSH Q15M PRN; Protocol PRN Reason: per Hypoglycemia Standing Ord. Digoxin (Digoxin 0.125 Mg Tablet) 0.125 mg PO Q2D@0900 [facility] Last Admin: 08/01/22 07:54 Dose: 0.125 mg Documented By: REBA Docusate Sodium (Docusate Sodium 100 Mg Capsule) 100 mg PO DAILY PRN PRN Reason: Constipation Duloxetine HCl (Duloxetine Hcl 30 Mg Capsule.) 30 mg PO DAILY [facility] Last Admin: 08/01/22 07:52 Dose: 30 mg Documented By: REBA Duloxetine HCl (Duloxetine Hcl 60 Mg Capsule.) 60 mg PO BEDTIME [facility] Last Admin: 07/31/22 21:14 Dose: 60 mg Documented By: DANIE Empagliflozin (Empagliflozin 10 Mg Tablet) 10 mg PO DAILY [facility] Last Admin: 08/01/22 07:53 Dose: 10 mg Documented By: REBA Ferrous Sulfate (Ferrous Sulfate 324 Mg Tablet.) 324 mg PO DAILY [facility] Last Admin: 08/01/22 07:54 Dose: 324 mg Documented By: REBA Fluticasone Propionate (Fluticasone Propionate Nasal 16 Gm [place]) 1 spray NOSTRIL-B BID [facility] Last Admin: 08/01/22 08:11 Dose: 1 spray Documented By: REBA Gabapentin (Gabapentin 400 Mg Capsule) 400 mg PO 5XD [facility] Last Admin: 08/01/22 11:26 Dose: 400 mg Documented By: ALTA Glucose (Glucose Gel 15 Gm Gel..Gram.) 15 gm PO Q15M PRN; Protocol PRN Reason: per Hypoglycemia Standing Ord. Hydroxyzine HCl (Hydroxyzine Hcl 25 Mg Tablet) 25 mg PO TID PRN PRN Reason: Anxiety Last Admin: 07/28/22 21:21 Dose: 25 mg Documented By: KYLE Doxycycline Hyclate 100 mg/ (Sodium Chloride) 250 mls @ 166.67 mls/hr IV Q12H [facility] Last Admin: 08/01/22 13:20 Dose: 166.7 mls/hr Documented By: ALTA Ceftriaxone Sodium 1 gm/ (Sodium Chloride) 50 mls @ 100 mls/hr IV Q24H [facility] Last Infusion: 08/01/22 12:51 Dose: 0 mls/hr Documented By: ALTA Insulin Glargine (Insulin Glargine,Hum.Rec.Anlog 100 Unit/Ml 10 Ml Vial) 14 unit SUBCUT BEDTIME [facility] Last Admin: 07/31/22 21:15 Dose: 14 unit Documented By: DANIE Insulin Human Lispro (Insulin Lispro 100 Unit/Ml 3 Ml Vial) 0 unit SUBCUT QIDACHS [facility]; Protocol Last Admin: 08/01/22 08:23 Dose: Not Given Documented By: REBA Non-Admin Reason: did not eat breakfast Lorazepam (Lorazepam 1 Mg Tablet) 2 mg PO TID PRN PRN Reason: Anxiety Last Admin: 08/01/22 07:53 Dose: 2 mg Documented By: REBA Metoprolol Succinate (Metoprolol Succinate Er 25 Mg Tab.Er.24h) 75 mg PO BID [facility]; Protocol Last Admin: 08/01/22 07:53 Dose: 75 mg Documented By: REBA Omeprazole (Omeprazole 20 Mg Capsule.Dr) 20 mg PO DAILY@0630 [facility] Last Admin: 08/01/22 06:09 Dose: 20 mg Documented By: DANIE Ondansetron HCl (Ondansetron Hcl 4 Mg/2 Ml Vial) 4 mg IVPUSH Q8H PRN PRN Reason: Nausea and Vomiting Oxycodone HCl (Oxycodone Hcl Immed Release 5 Mg Tablet) 10 mg PO Q6H PRN PRN Reason: Pain, Moderate (Pain Scale 4-6 Last Admin: 08/01/22 11:20 Dose: 10 mg Documented By: ALTA Oxycodone HCl (Oxycodone Hcl Immed Release 5 Mg Tablet) 5 mg PO BID PRN PRN Reason: Pain, Severe (Pain Scale 7-10) Last Admin: 07/31/22 21:27 Dose: 5 mg Documented By: DANIE Pharmacy Consult (Consult Rx Vancomycin Dosing) 1 each MISCELLANE DAILY PRN PRN Reason: Consult order Phenazopyridine HCl (Phenazopyridine Hcl 100 Mg Tablet) 100 mg PO TIDWM [facility] Stop: 08/03/22 17:01 Last Admin: 08/01/22 13:26 Dose: Not Given Documented By: ALTA Non-Admin Reason: Previously Administered Phenytoin Sodium (Phenytoin Sodium Extended 100 Mg Capsule) 300 mg PO DAILY [facility] Last Admin: 08/01/22 07:51 Dose: 300 mg Documented By: REBA Phenytoin Sodium (Phenytoin Sodium Extended 100 Mg Capsule) 400 mg PO BEDTIME [facility] Last Admin: 07/31/22 21:15 Dose: 400 mg Documented By: DANIE Quetiapine Fumarate (Quetiapine Fumarate 100 Mg Tablet) 100 mg PO BEDTIME PRN PRN Reason: Insomnia Quetiapine Fumarate (Quetiapine Fumarate 200 Mg Tablet) 200 mg PO BID [facility] Last Admin: 08/01/22 07:53 Dose: 200 mg Documented By: REBA Sodium Chloride (0.9 % Sodium Chloride Flush 3 Ml Syringe) 3 ml IVFLUSH QSHIFT [facility] Last Admin: 08/01/22 07:37 Dose: Not Given Documented By: REBA Non-Admin Reason: IV Running Torsemide (Torsemide 20 Mg Tablet) 40 mg PO DAILY [facility]; Protocol Last Admin: 08/01/22 07:52 Dose: 40 mg Documented By: REBA Trazodone HCl (Trazodone Hcl 100 Mg Tablet) 100 mg PO BEDTIME [facility] Last Admin: 07/31/22 21:14 Dose: 100 mg Documented By: DANIE Labs 07/31/22 05:46 08/01/22 06:39 Labs: Laboratory Results - last 24 hr 07/31/22 07/31/22 07/31/22 13:24 18:18 21:00 Estim Creat Clear Calc Estimated GFR POC Glucose 165 H 171 H Vancomycin Trough 13.7 07/31/22 08/01/22 08/01/22 21:06 03:37 06:21 Estim Creat Clear Calc Estimated GFR POC Glucose 193 H 222 H 182 H Vancomycin Trough 08/01/22 08/01/22 06:39 12:41 Estim Creat Clear Calc 122.6 Estimated GFR > 60 POC Glucose 157 H Vancomycin Trough Microbiology Microbiology Results: Microbiology 07/31/22 07:15 Blood Culture - Preliminary Blood - Venous No growth after 24 hours. 07/31/22 07:15 Blood Culture - Preliminary Blood - Venous No growth after 24 hours. 07/30/22 11:42 Urine Culture - Preliminary Urine clean catch - Urine drew top Escherichia coli 07/30/22 11:41 Blood Culture - Preliminary Blood - Venous No growth after 24 hours. 07/30/22 11:41 Blood Culture - Preliminary Blood - Venous No growth after 24 hours. Assessment and Plan (1) Physical deconditioning: Status: Acute (2) Acute UTI: Status: Acute (3) Sepsis: Status: Acute Plan 62-year-old male with a PMH significant for?paroxysmal AFib on Eliquis, insulin- dependent diabetes, mood disorder, chronic pain on opioids, and HTN who developed a fever and leukocytosis after being in the ED overflow awaiting [facility] for rehab.? Pt will be admitted to the hospital for treatment of UTI with IV antibiotics. Sepsis d/t Acute cystitis UA positive for UTI Cx growing E.Coli, pending sensitivity AZO for dysurea Id input appreciated to get Urology eval for recurrent UTI Abdominal pain Better, CT no acute finding continue bowel regimen HTN Continue antihypertensives Paroxysmal AFib Continue Eliquis, metoprolol, digoxin Insulin-dependent diabetes Hold home meds SSI, Lantus Chronic hypoxic respiratory failure On home O2 4 L, continue Mild intermittent asthma without acute exacerbation Continue home inhalers Seizure disorder Continue phenytoin Chronic iron deficiency anemia Continue iron supplementation Mood disorder Continue quetiapine, trazodone, duloxetine Need for inatient: UTI that needs IV Abx pending final cultures Time Spent With Patient Time: Total time managing care of this patient today ____ minutes. Quality Stroke Does the patient have a stroke diagnosis?: No VTE Prior VTE?: No VTE Risk Level:: Medical - moderate - high VTE Device Contraindication: Treatment Not Indicated VTE Drug Contraindication: N/A - Med Ordered
--- NOTE | 2022-08-01 13:43 | PC.NURSE ---
pt eating lunch. VSS. property assessment monitor intact - Afib. 94% O2 on 3l NC. Insulin Lispro given per sliding scale.
--- NOTE | 2022-08-01 15:30 | PC.NURSE ---
pt alert and oriented,but appears confused. Gabapentin given per order
--- NOTE | 2022-08-01 16:13 | MHC.EDTECH ---
Went into patients room to help him use the urinal to void after he had many failed attempts earlier today using it on his own. Before the urinal was properly placed, patient started to urinate on me and joked did I get you?
--- NOTE | 2022-08-01 16:32 | PC.NURSE ---
This nurse gave report to Nurse on [facility] regarding [facility]. Nurse is ready for pt transfer
--- NOTE | 2022-08-01 16:37 | PC.NURSE ---
transport notified to bring [facility] to [facility], they will bring patient up within the hour as they have 2 other transports to complete prior to this one.
[2022-08-01 16:47] LABS: Glucose, Whole Blood 199 mg/dL (60-115)
--- NOTE | 2022-08-01 16:53 | PC.NURSE ---
this nurse overheard the patient on his cell phone calling an unknown police department- the patient reached a recording which stated if this was a police emergency to press 1, non emergency press 2, this nurse intercepted the call before he was able to connect to anybody, the patient promptly hung up the phone when this nurse asked who he was calling and why. THe patient stated that the tech found a gun under his pillow and took it, throwing it in the garbage. This nurse inquired to what garbage and he pointed to the linen, when this nurse offered to empty the linen he stated that it was not that bin it was another garbage bin. This nurse explained to the patient that the tech had been helping him previously with another nurse and there was no gun, this nurse asked the patient where he was at and he stated [employer] , this nurse asked the patient to look around the room and if he recognized it as [facility] [employer] and pt stated They remodeled it to look different and made me a room this nurse reoriented the patient to where he was in the hospital and that he was in [place], pt then replied I know where I am I just wanted to see if you knew this nurse asked the patient where he was and he was able to state [facility] although he stated the year was 1960 which is the year of his . pt had a recent poc which was 199.
--- NOTE | 2022-08-01 16:55 | PC.NURSE ---
Addendum entered by Aviva Pedersen 08/01/22 17:02: POC 199, insulin lispro held until dinner is available. Pt soon to be transferred to the floor. Original Note: 1630 insulin lispro not given due to no food tray
--- NOTE | 2022-08-01 17:16 | PC.NURSE ---
transfer took patient to floor. This nurse notified [facility] of recent incident regarding pt calling the police - detailed in a note.
[2022-08-01 17:42] LABS: Glucose, Whole Blood 204 mg/dL (60-115)
[2022-08-01] MEDS: 0.9 % Sodium Chloride Flush 3 ML SYRINGE IVFLUSH (17:47)
[2022-08-01 21:35] LABS: Glucose, Whole Blood 228 mg/dL (60-115)
[2022-08-01 21:47] LABS: Vancomycin Random 9.6 mcg/mL (15-20)
[2022-08-01] MEDS: Phenytoin Sodium Extended 100 MG CAPSULE 400 MG PO (22:07)
[2022-08-01] MEDS: DULoxetine HCl 60 MG CAPSULE.DR PO (22:08)
[2022-08-01] MEDS: traZODone HCL 100 MG TABLET PO (22:08)
[2022-08-01] MEDS: Insulin Glargine,Hum.rec.anlog 100 UNIT/ML 10 ML VIAL 14 UNIT SUBCUT (22:09)
--- NOTE | 2022-08-02 02:09 | PC.NURSE ---
Pt pulled out his IV and when this nurse asked him where he was he stated at my house . Pt had previously answered correctly and refused the camera. At this time this RN felt he needed the camera and pt threaten to break it. This RN let him know if he destroyed the hospital property it could result in restraints of some form. Pt stopped refusing camera.
[2022-08-02 04:00] VITALS: BP 121/66; PULSE 94; RESP 20; TEMP 36.8; O2SAT 95
[2022-08-02] MEDS: Gabapentin 400 MG CAPSULE PO ×5 (05:58→22:51)
[2022-08-02] MEDS: Omeprazole 20 MG CAPSULE.DR PO (05:58)
[2022-08-02 07:21] LABS: Creatinine Clr Calc Pharmacy 130.3; Estimated Glomerular Filt Rate > 60
--- NOTE | 2022-08-02 07:36 | PM.UROCN ---
History of Present Illness Consult details Consult date: 08/02/22 Narrative: CC: UTI 62-year-old male. Initial admission with Mechanical fall at home and found to have urinary tract infection. At discharge found to have fever and leukocytosis. Recurring UTI with E coli Past medical history relevant for insulin-dependent diabetes, AFib, hypertension. Multiple anticholinergic medications for mood disorder including phenytoin Describes weakness of stream prior to admission with constipation. Recommend initiating doxazosin and finasteride May follow as outpatient for further evaluation Review of Systems Constitutional: Constitutional: Reports as per HPI and Reports no additional constitutional complaints Cardiovascular: Cardiovascular: Reports as per HPI and Reports no additional cardiovascular complaints Respiratory: Respiratory: Reports as per HPI and Reports no additional respiratory complaints Gastrointestinal: Gastrointestinal: Reports as per HPI and Reports no additional gastrointestinal complaints Genitourinary: Genitourinary: Reports as per HPI Musculoskeletal: Musculoskeletal: Reports no additional musculoskeletal complaints and Reports as per HPI Neurologic: Reports system reviewed and no additional complaints, except as documented and Reports as per HPI PMFSH Past Medical History Medical History Anxiety Arthritis Asthma Atrial fibrillation with rapid ventricular response Coronary artery disease Diabetes mellitus, type 2 Fall Hypertension Multifactorial gait disorder Obesity PTSD (post-traumatic stress disorder) TIA (transient ischemic attack) Transient ischemic attack (TIA) Weakness Family History Family history: reviewed and not pertinent Social History Social History Household Members: None Housing: Apartment Do you presently have visiting nurse or other home services: No Alcohol intake: never Patient Tobacco Use Status: Never used Tobacco Second Hand Smoke Exposure: No Advance Directives Date on File: 04/14/22 service: No Current occupational status: disabled Meds Allergies Allergy/AdvReac Type Severity Reaction Status Date / Time aspirin Allergy Severe OCCASIONAL Verified 04/08/22 14:18 RASH / TONGUE SWELLING, Hives, throat swellig bee pollen [BEE STINGS] Allergy Severe ANAPHYLAXIS Verified 04/08/22 14:18 Penicillins Allergy Severe ANAPHYLAXIS Verified 04/08/22 14:18 povidone-iodine [Betadine] Allergy Severe Redness of Verified 04/08/22 14:18 Skin soap [Betadine] Allergy Severe Redness of Verified 04/08/22 14:18 Skin spider venom [SPIDER BITES] Allergy Severe Hives Verified 04/08/22 14:18 amoxicillin Allergy Intermediate Hives Verified 04/08/22 14:18 clindamycin Allergy Mild RASH Verified 04/08/22 14:18 latex [Latex] Allergy Mild RASH Verified 04/08/22 14:18 shrimp Allergy Hives Verified 06/21/22 11:48 bupropion [From WELLBUTRIN] AdvReac Severe SEIZURES Verified 04/08/22 14:18 adhesive tape AdvReac Mild Rash Verified 04/14/22 15:55 Active Medications: Current Medications Acetaminophen (Acetaminophen 325 Mg Tablet) 975 mg PO BID PRN PRN Reason: Pain Last Admin: 07/31/22 12:43 Dose: 975 mg Acetaminophen (Acetaminophen 325 Mg Tablet) 650 mg PO Q6H PRN PRN Reason: Pain, Mild (Pain Scale 1-3) Albuterol Sulfate (Albuterol Sulfate 90 Mcg 8 Gm Inhaler) 2 puff INHALE Q4H PRN PRN Reason: Shortness Of Breath Apixaban (Apixaban 5 Mg Tablet) 5 mg PO BID [facility] Last Admin: 08/01/22 22:08 Dose: 5 mg Atorvastatin Calcium (Atorvastatin Calcium 80 Mg Tablet) 80 mg PO DAILY [facility] Last Admin: 08/01/22 07:54 Dose: 80 mg Dextrose (Dextrose 50 % 25 Gm/50 Ml Syringe) 25 gm IVPUSH Q15M PRN; Protocol PRN Reason: per Hypoglycemia Standing Ord. Digoxin (Digoxin 0.125 Mg Tablet) 0.125 mg PO Q2D@0900 [facility] Last Admin: 08/01/22 07:54 Dose: 0.125 mg Docusate Sodium (Docusate Sodium 100 Mg Capsule) 100 mg PO DAILY PRN PRN Reason: Constipation Duloxetine HCl (Duloxetine Hcl 30 Mg Capsule.) 30 mg PO DAILY [facility] Last Admin: 08/01/22 07:52 Dose: 30 mg Duloxetine HCl (Duloxetine Hcl 60 Mg Capsule.) 60 mg PO BEDTIME [facility] Last Admin: 08/01/22 22:08 Dose: 60 mg Empagliflozin (Empagliflozin 10 Mg Tablet) 10 mg PO DAILY [facility] Last Admin: 08/01/22 07:53 Dose: 10 mg Ferrous Sulfate (Ferrous Sulfate 324 Mg Tablet.) 324 mg PO DAILY [facility] Last Admin: 08/01/22 07:54 Dose: 324 mg Fluticasone Propionate (Fluticasone Propionate Nasal 16 Gm [place]) 1 spray NOSTRIL-B BID [facility] Last Admin: 08/01/22 22:24 Dose: Not Given Gabapentin (Gabapentin 400 Mg Capsule) 400 mg PO 5XD [facility] Last Admin: 08/02/22 05:58 Dose: 400 mg Glucose (Glucose Gel 15 Gm Gel..Gram.) 15 gm PO Q15M PRN; Protocol PRN Reason: per Hypoglycemia Standing Ord. Hydroxyzine HCl (Hydroxyzine Hcl 25 Mg Tablet) 25 mg PO TID PRN PRN Reason: Anxiety Last Admin: 07/28/22 21:21 Dose: 25 mg Doxycycline Hyclate 100 mg/ (Sodium Chloride) 250 mls @ 166.67 mls/hr IV Q12H [facility] Last Infusion: 08/02/22 00:21 Dose: Infused Ceftriaxone Sodium 1 gm/ (Sodium Chloride) 50 mls @ 100 mls/hr IV Q24H [facility] Last Infusion: 08/01/22 12:51 Dose: Infused Insulin Glargine (Insulin Glargine,Hum.Rec.Anlog 100 Unit/Ml 10 Ml Vial) 14 unit SUBCUT BEDTIME [facility] Last Admin: 08/01/22 22:09 Dose: 14 unit Insulin Human Lispro (Insulin Lispro 100 Unit/Ml 3 Ml Vial) 0 unit SUBCUT QIDACHS [facility]; Protocol Last Admin: 08/01/22 22:09 Dose: 4 unit Lorazepam (Lorazepam 1 Mg Tablet) 2 mg PO TID PRN PRN Reason: Anxiety Last Admin: 08/01/22 22:20 Dose: 2 mg Metoprolol Succinate (Metoprolol Succinate Er 25 Mg Tab.Er.24h) 75 mg PO BID [facility]; Protocol Last Admin: 08/01/22 22:08 Dose: 75 mg Omeprazole (Omeprazole 20 Mg Capsule.Dr) 20 mg PO DAILY@0630 [facility] Last Admin: 08/02/22 05:58 Dose: 20 mg Ondansetron HCl (Ondansetron Hcl 4 Mg/2 Ml Vial) 4 mg IVPUSH Q8H PRN PRN Reason: Nausea and Vomiting Oxycodone HCl (Oxycodone Hcl Immed Release 5 Mg Tablet) 10 mg PO Q6H PRN PRN Reason: Pain, Moderate (Pain Scale 4-6 Last Admin: 08/01/22 11:20 Dose: 10 mg Oxycodone HCl (Oxycodone Hcl Immed Release 5 Mg Tablet) 5 mg PO BID PRN PRN Reason: Pain, Severe (Pain Scale 7-10) Last Admin: 07/31/22 21:27 Dose: 5 mg Phenazopyridine HCl (Phenazopyridine Hcl 100 Mg Tablet) 100 mg PO TIDWM [facility] Stop: 08/03/22 17:01 Last Admin: 08/01/22 18:21 Dose: 100 mg Phenytoin Sodium (Phenytoin Sodium Extended 100 Mg Capsule) 300 mg PO DAILY [facility] Last Admin: 08/01/22 07:51 Dose: 300 mg Phenytoin Sodium (Phenytoin Sodium Extended 100 Mg Capsule) 400 mg PO BEDTIME [facility] Last Admin: 08/01/22 22:07 Dose: 400 mg Quetiapine Fumarate (Quetiapine Fumarate 100 Mg Tablet) 100 mg PO BEDTIME PRN PRN Reason: Insomnia Quetiapine Fumarate (Quetiapine Fumarate 200 Mg Tablet) 200 mg PO BID [facility] Last Admin: 08/01/22 22:08 Dose: 200 mg Sodium Chloride (0.9 % Sodium Chloride Flush 3 Ml Syringe) [facility] Last Admin: 08/02/22 00:21 Dose: Not Given Torsemide (Torsemide 20 Mg Tablet) 40 mg PO DAILY [facility]; Protocol Last Admin: 08/01/22 07:52 Dose: 40 mg Trazodone HCl (Trazodone Hcl 100 Mg Tablet) 100 mg PO BEDTIME [facility] Last Admin: 08/01/22 22:08 Dose: 100 mg Home Medications Medication Instructions Recorded Confirmed Last Taken Type apixaban 5 mg tablet (Eliquis) 1 tab PO BID 07/08/22 07/28/22 Unknown History hydroxyzine HCl 25 mg tablet 1 tab PO TID PRN Anxiety 07/08/22 07/28/22 Unknown History lorazepam 2 mg tablet 1 tab PO TID PRN Anxiety 07/08/22 07/28/22 Unknown History metformin 1,000 mg tablet 1 tab PO DAILY 07/08/22 07/28/22 Unknown History oxycodone 5 mg tablet 1 tab PO BID PRN Pain 07/08/22 07/28/22 Unknown History pantoprazole 40 mg tablet,delayed 1 tab PO DAILY@0630 07/08/22 07/28/22 Unknown History release phenytoin sodium extended 100 mg 300 mg PO DAILY 07/08/22 07/28/22 Unknown History capsule trazodone 50 mg tablet 2 tab PO BEDTIME 07/08/22 07/28/22 Unknown History acetaminophen 500 mg tablet 1,000 mg PO BID PRN Pain 07/09/22 07/28/22 Unknown History albuterol sulfate 90 mcg/actuation 2 puff inhalation Q4-6H PRN 07/09/22 07/28/22 Unknown History aerosol inhaler (ProAir HFA) Shortness Of Breath atorvastatin 80 mg tablet 1 tab PO DAILY 07/09/22 07/28/22 Unknown History digoxin 125 mcg (0.125 mg) tablet 1 tab PO Q2D 07/09/22 07/28/22 Unknown History duloxetine 30 mg capsule,delayed 30 mg PO DAILY 07/09/22 07/28/22 Unknown History release duloxetine 30 mg capsule,delayed 60 mg PO BEDTIME 07/09/22 07/28/22 Unknown History release fluticasone propionate 50 1 spray intranasal BID 07/09/22 07/28/22 Unknown History mcg/actuation nasal spray,suspension gabapentin 400 mg capsule 1 cap PO 5XD 07/09/22 07/28/22 Unknown History insulin glargine 100 unit/mL (3 20 unit subcut BEDTIME 07/09/22 07/28/22 Unknown History mL) subcutaneous pen (Lantus Solostar U-100 Insulin) insulin lispro 100 unit/mL 2 - 10 unit subcut TIDAC 07/09/22 07/28/22 Unknown History subcutaneous pen phenytoin sodium extended 100 mg 400 mg PO BEDTIME 07/09/22 07/28/22 Unknown History capsule quetiapine 100 mg tablet 1 tab PO BEDTIME PRN Insomnia 07/09/22 07/28/22 Unknown History quetiapine 200 mg tablet 1 tab PO BID 07/09/22 07/28/22 Unknown History torsemide 20 mg tablet 2 tab PO DAILY 07/09/22 07/28/22 Unknown History empagliflozin 10 mg tablet 10 mg PO DAILY 07/30/22 07/30/22 Unknown History (Jardiance) ferrous sulfate 324 mg (65 mg 324 mg PO DAILY 07/30/22 07/30/22 Unknown History iron) tablet,delayed release Physical Exam Vital Signs: Vital Signs: Last Vital Signs Temp 98.2 F 08/02/22 04:00 Pulse 94 08/02/22 04:00 Resp 20 08/02/22 04:00 BP 121/66 08/02/22 04:00 Pulse Ox 95 08/02/22 04:00 O2 Del Method 08/02/22 04:00 O2 Flow Rate 2 08/02/22 04:00 Oxygen Flow Rate 4 07/27/22 21:26 BMI result Body Mass Index 33.1 Const: General: cooperative, healthy appearing, comfortable and no acute distress Orientation/consciousness: patient oriented x3 HEENT: Face and sinus: Yes normal facial exam Mouth: moist mucous membranes Neck: Neck: Yes normal visual inspection, Yes full ROM and Yes trachea midline Chest: Chest palpation & inspection: normal inspection of the chest Resp: Effort & Inspection: normal respiratory effort, able to speak in complete sentences and no respiratory distress GI: Inspection: Yes normal to inspection Back/Spine/Pelvis: Cervical Spine: normal cervical lordosis Thoracic/Lumbar Spine: thoracic and lumbar spine normal to inspection Skin: General skin exam: no rashes or lesions noted Neuro: General: patient oriented x3, tone normal and moves all extremities Extrem: General: Yes normal to inspection and Yes capillary refill normal Results Labs 07/31/22 05:46 08/02/22 06:40 Labs: Abnormal lab results 08/01/22 08/01/22 08/01/22 Range/Units 12:41 16:29 17:36 POC Glucose 157 H 199 H 204 H (60-115) mg/dL Random Vancomycin (15-20) mcg/mL 08/01/22 08/01/22 Range/Units 21:16 21:32 POC Glucose 228 H (60-115) mg/dL Random Vancomycin 9.6 L (15-20) mcg/mL BMP 08/01/22 08/02/22 06:39 06:40 Creatinine 0.85 0.80 Urine 07/30/22 Range/Units 09:13 Urine Color Yellow Urine Appearance Turbid Urine pH 5.5 (5.0-9.0) Ur Specific [place] 1.025 (1.005-1.025) Urine Protein 30 (1+) H (Neg-Trace) mg/dL Urine Glucose (UA) Negative (Negative) mg/dL All other labs normal. Assessment and Plan (1) Bladder outlet obstruction: Status: Acute (2) UTI (urinary tract infection): Status: Acute Plan Start combination prostate therapy Outpatient follow-up 4-6 weeks Time Spent With Patient Time: Total time managing care of this patient today ____ minutes. Procedures Date of Service Date of Service: 08/02/22
[2022-08-02 08:00] VITALS: BP 133/75; PULSE 90; RESP 18; TEMP 36.9; O2SAT 97
[2022-08-02 08:13] LABS: Glucose, Whole Blood 154 mg/dL (60-115)
[2022-08-02] MEDS: Insulin Lispro 100 UNIT/ML 3 ML VIAL SUBCUT ×4 (08:48→22:51)
[2022-08-02] MEDS: Torsemide 20 MG TABLET 40 MG PO (08:49)
[2022-08-02] MEDS: DULoxetine HCl 30 MG CAPSULE.DR PO (08:49)
[2022-08-02] MEDS: Phenazopyridine HCL 100 MG TABLET PO ×3 (08:50→17:01)
[2022-08-02] MEDS: Apixaban 5 MG TABLET PO ×2 (08:50→22:51)
[2022-08-02] MEDS: Atorvastatin Calcium 80 MG TABLET PO (08:50)
[2022-08-02] MEDS: Ferrous Sulfate 324 MG TABLET.DR PO (08:50)
[2022-08-02] MEDS: QUEtiapine Fumarate 200 MG TABLET PO ×2 (08:51→22:51)
[2022-08-02] MEDS: Phenytoin Sodium Extended 100 MG CAPSULE 300 MG PO (08:51)
[2022-08-02] MEDS: Empagliflozin 10 MG TABLET PO (08:51)
[2022-08-02] MEDS: Finasteride 5 MG TABLET PO (08:52)
[2022-08-02] MEDS: Metoprolol Succinate ER 25 MG TAB.ER.24H 75 MG PO ×2 (08:52→22:50)
[2022-08-02] MEDS: 0.9 % Sodium Chloride Flush 3 ML SYRINGE IVFLUSH ×3 (08:53→23:18)
[2022-08-02] MEDS: oxyCODONE HCl Immed Release 5 MG TABLET 10 MG PO ×3 (08:54→23:13)
[2022-08-02] MEDS: cefTRIAXone sodium 1 GM in 0.9 % Sodium Chloride 50 ML IV (09:07)
--- NOTE | 2022-08-02 11:28 | HO.MIDLINE_ITS ---
Midline Insertion MIDLINE INSERTION Diagnosis: UTI Indication: detention antibiotics needed Pertinent Labs: reviewed Technique: Using sterile technique including cap and mask, glove and drape, the right arm was prepped and draped in the usual sterile fashion of full barrier technique with CHG. Using ultrasound guidance, right basilic vein access was obtained twice by Gloria Escalante RN, but unable to pass guidewire. [Right basilic vein was then accessed on first attempt by Turner Chavez RN. A 20G X 10CM non-PASV Midline was positioned. The procedure was performed in [S272]. Ultrasound was used to document vein patency and for needle entry. A formal ultrasound picture was recorded. [employer] has released the line for use and it is currently dressed with a StatLock, Tegaderm, and CHG disc. Verification has been performed for blood return and line patency. Arm Circumference: 40 CM Equipment: BARD PowerGlide ST Midline Catheter Type: [id number] non-PASV Midline Lot #: [id number]
[2022-08-02 11:39] VITALS: BP 113/65; PULSE 99; RESP 20; TEMP 37.2; O2SAT 92
[2022-08-02 11:46] LABS: Glucose, Whole Blood 225 mg/dL (60-115)
[2022-08-02] MEDS: LORazepam 1 MG TABLET 2 MG PO ×2 (11:56→23:12)
[2022-08-02 12:35] LABS: Hematocrit 33.2 % (42.0-52.0); Hemoglobin 9.8 g/dl (14.0-18.0); Mean Corpuscular HGB Conc 29.5 g/dl (31.0-36.0); Mean Corpuscular Hemoglobin 22.6 pg (27.0-33.0); Mean Corpuscular Volume 76.5 fL (80.0-98.0); Mean Platelet Volume 10.6 fL (9.4-12.4); Platelet Count 295 X10*3/uL (160-400); Red Blood Count 4.34 X10*6/uL (4.60-5.80); White Blood Count 5.7 X10*3/uL (4.8-10.8)
[2022-08-02] MEDS: Doxycycline Hyclate 100 MG in 0.9 % Sodium Chloride 250 ML 166.7 MG IV (12:36)
--- NOTE | 2022-08-02 13:52 | P.PNIM_ITS ---
Subjective Subjective Date of Service: 08/02/22 Interval History: f/u on uti, cystitis Urine Cx growig resistent E.Coli Reporting dysuria No fever or chills overnight Review of Systems Resolved Fever, chills Improved Nausea, no vomiting Moved his bowels Reporting dysuria, no polyuria Denies chest pain/pressure, palpitations Physical Exam Vital Signs: Vital Signs: Last Vital Signs Temp 98.9 F 08/02/22 11:39 Pulse 99 08/02/22 11:39 Resp 20 08/02/22 11:39 BP 113/65 08/02/22 11:39 Pulse Ox 92 08/02/22 11:39 O2 Del Method 08/02/22 11:39 O2 Flow Rate 3 08/02/22 08:00 Oxygen Flow Rate 4 07/27/22 21:26 BMI result Body Mass Index 33.1 Const: Other: General: AO X 3, no acute distress Resp: CTA bilateral, no wheezing CVS: S1,S2,RRR GI: +BS, NT, no distention or tenderness Skin: No rash, dry Neuro: motor grossly intact Psych: appropriate affect Objective Data Active Medications Acetaminophen (Acetaminophen 325 Mg Tablet) 975 mg PO BID PRN PRN Reason: Pain Last Admin: 07/31/22 12:43 Dose: 975 mg Documented By: ALTA Acetaminophen (Acetaminophen 325 Mg Tablet) 650 mg PO Q6H PRN PRN Reason: Pain, Mild (Pain Scale 1-3) Albuterol Sulfate (Albuterol Sulfate 90 Mcg 8 Gm Inhaler) 2 puff INHALE Q4H PRN PRN Reason: Shortness Of Breath Apixaban (Apixaban 5 Mg Tablet) 5 mg PO BID [facility] Last Admin: 08/02/22 08:50 Dose: 5 mg Documented By: TYLER Atorvastatin Calcium (Atorvastatin Calcium 80 Mg Tablet) 80 mg PO DAILY [facility] Last Admin: 08/02/22 08:50 Dose: 80 mg Documented By: TYLER Heparin Sodium (Porcine) 50 (units/ Sodium Chloride 5 ml) 0 units IVFLUSH TID [facility] Dextrose (Dextrose 50 % 25 Gm/50 Ml Syringe) 25 gm IVPUSH Q15M PRN; Protocol PRN Reason: per Hypoglycemia Standing Ord. Digoxin (Digoxin 0.125 Mg Tablet) 0.125 mg PO Q2D@0900 [facility] Last Admin: 08/01/22 07:54 Dose: 0.125 mg Documented By: REBA Docusate Sodium (Docusate Sodium 100 Mg Capsule) 100 mg PO DAILY PRN PRN Reason: Constipation Doxazosin Mesylate (Doxazosin Mesylate 2 Mg Tablet) 4 mg PO BEDTIME [facility]; Protocol Duloxetine HCl (Duloxetine Hcl 30 Mg Capsule.) 30 mg PO DAILY [facility] Last Admin: 08/02/22 08:49 Dose: 30 mg Documented By: TYLER Duloxetine HCl (Duloxetine Hcl 60 Mg Capsule.) 60 mg PO BEDTIME [facility] Last Admin: 08/01/22 22:08 Dose: 60 mg Documented By: MOISES Empagliflozin (Empagliflozin 10 Mg Tablet) 10 mg PO DAILY [facility] Last Admin: 08/02/22 08:51 Dose: 10 mg Documented By: TYLER Ferrous Sulfate (Ferrous Sulfate 324 Mg Tablet.) 324 mg PO DAILY [facility] Last Admin: 08/02/22 08:50 Dose: 324 mg Documented By: TYLER Finasteride (Finasteride 5 Mg Tablet) 5 mg PO DAILY [facility] Last Admin: 08/02/22 08:52 Dose: 5 mg Documented By: TYLER Fluticasone Propionate (Fluticasone Propionate Nasal 16 Gm [place]) 1 spray NOSTRIL-B BID [facility] Last Admin: 08/02/22 10:13 Dose: Not Given Documented By: TYLER Non-Admin Reason: pharmacist called for the med Gabapentin (Gabapentin 400 Mg Capsule) 400 mg PO 5XD [facility] Last Admin: 08/02/22 08:51 Dose: 400 mg Documented By: TYLER Glucose (Glucose Gel 15 Gm Gel..Gram.) 15 gm PO Q15M PRN; Protocol PRN Reason: per Hypoglycemia Standing Ord. Hydroxyzine HCl (Hydroxyzine Hcl 25 Mg Tablet) 25 mg PO TID PRN PRN Reason: Anxiety Last Admin: 07/28/22 21:21 Dose: 25 mg Documented By: KYLE Doxycycline Hyclate 100 mg/ (Sodium Chloride) 250 mls @ 166.67 mls/hr IV Q12H [facility] Last Admin: 08/02/22 12:36 Dose: 166.7 mls/hr Documented By: TYLER Ceftriaxone Sodium 1 gm/ (Sodium Chloride) 50 mls @ 100 mls/hr IV Q24H [facility] Last Infusion: 08/02/22 09:40 Dose: 0 mls/hr Documented By: TYLER Meropenem 1 gm/ Sodium (Chloride) 100 mls @ 200 mls/hr IV Q8H [facility] Last Infusion: 08/02/22 12:15 Dose: 0 mls/hr Documented By: TYLER Insulin Glargine (Insulin Glargine,Hum.Rec.Anlog 100 Unit/Ml 10 Ml Vial) 14 un it SUBCUT BEDTIME [facility] Last Admin: 08/01/22 22:09 Dose: 14 unit Documented By: MOISES Insulin Human Lispro (Insulin Lispro 100 Unit/Ml 3 Ml Vial) 0 unit SUBCUT QIDACHS [facility]; Protocol Last Admin: 08/02/22 11:56 Dose: 4 unit Documented By: TYLER Lorazepam (Lorazepam 1 Mg Tablet) 2 mg PO TID PRN PRN Reason: Anxiety Last Admin: 08/02/22 11:56 Dose: 2 mg Documented By: TYLER Metoprolol Succinate (Metoprolol Succinate Er 25 Mg Tab.Er.24h) 75 mg PO BID [facility]; Protocol Last Admin: 08/02/22 08:52 Dose: 75 mg Documented By: TYLER Omeprazole (Omeprazole 20 Mg Capsule.Dr) 20 mg PO DAILY@0630 [facility] Last Admin: 08/02/22 05:58 Dose: 20 mg Documented By: MOISES Ondansetron HCl (Ondansetron Hcl 4 Mg/2 Ml Vial) 4 mg IVPUSH Q8H PRN PRN Reason: Nausea and Vomiting Oxycodone HCl (Oxycodone Hcl Immed Release 5 Mg Tablet) 10 mg PO Q6H PRN PRN Reason: Pain, Moderate (Pain Scale 4-6 Last Admin: 08/02/22 08:54 Dose: 10 mg Documented By: TYLER Oxycodone HCl (Oxycodone Hcl Immed Release 5 Mg Tablet) 5 mg PO BID PRN PRN Reason: Pain, Severe (Pain Scale 7-10) Last Admin: 07/31/22 21:27 Dose: 5 mg Documented By: DANIE Phenazopyridine HCl (Phenazopyridine Hcl 100 Mg Tablet) 100 mg PO TIDWM [facility] Stop: 08/03/22 17:01 Last Admin: 08/02/22 11:54 Dose: 100 mg Documented By: TYLER Phenytoin Sodium (Phenytoin Sodium Extended 100 Mg Capsule) 300 mg PO DAILY [facility] Last Admin: 08/02/22 08:51 Dose: 300 mg Documented By: TYLER Phenytoin Sodium (Phenytoin Sodium Extended 100 Mg Capsule) 400 mg PO BEDTIME [facility] Last Admin: 08/01/22 22:07 Dose: 400 mg Documented By: MOISES Quetiapine Fumarate (Quetiapine Fumarate 100 Mg Tablet) 100 mg PO BEDTIME PRN PRN Reason: Insomnia Quetiapine Fumarate (Quetiapine Fumarate 200 Mg Tablet) 200 mg PO BID [facility] Last Admin: 08/02/22 08:51 Dose: 200 mg Documented By: TYLER Sodium Chloride (0.9 % Sodium Chloride Flush 3 Ml Syringe) 3 ml IVFLUSH QSHIFT [facility] Last Admin: 08/02/22 08:53 Dose: 3 ml Documented By: TYLER Torsemide (Torsemide 20 Mg Tablet) 40 mg PO DAILY [facility]; Protocol Last Admin: 08/02/22 08:49 Dose: 40 mg Documented By: TYLER Trazodone HCl (Trazodone Hcl 100 Mg Tablet) 100 mg PO BEDTIME [facility] Last Admin: 08/01/22 22:08 Dose: 100 mg Documented By: MOISES Labs 08/02/22 12:21 08/02/22 06:40 Labs: Laboratory Results - last 24 hr 08/01/22 08/01/22 08/01/22 16:29 17:36 21:16 MCV MCH MCHC RDW Plt Count MPV Absolute Nucleated RBC Nucleated RBC % (auto) Estim Creat Clear Calc Estimated GFR POC Glucose 199 H 204 H Random Vancomycin 9.6 L 08/01/22 08/02/22 08/02/22 21:32 06:40 08:07 MCV MCH MCHC RDW Plt Count MPV Absolute Nucleated RBC Nucleated RBC % (auto) Estim Creat Clear Calc 130.3 Estimated GFR > 60 POC Glucose 228 H 154 H Random Vancomycin 08/02/22 08/02/22 11:35 12:21 MCV 76.5 L MCH 22.6 L MCHC 29.5 L RDW 19.0 H Plt Count 295 MPV 10.6 Absolute Nucleated RBC 0.000 Nucleated RBC % (auto) 0.0 Estim Creat Clear Calc Estimated GFR POC Glucose 225 H Random Vancomycin Microbiology Microbiology Results: Microbiology 07/31/22 07:15 Blood Culture - Preliminary Blood - Venous No growth after 48 hours. 07/31/22 07:15 Blood Culture - Preliminary Blood - Venous No growth after 48 hours. 07/30/22 11:42 Urine Culture - Final Urine clean catch - Urine drew top Escherichia coli 07/30/22 11:41 Blood Culture - Preliminary Blood - Venous No growth after 48 hours. 07/30/22 11:41 Blood Culture - Preliminary Blood - Venous No growth after 48 hours. Assessment and Plan (1) Bladder outlet obstruction: Status: Acute (2) Physical deconditioning: Status: Acute (3) Acute UTI: Status: Acute Plan 62-year-old male with a PMH significant for?paroxysmal AFib on Eliquis, insulin- dependent diabetes, mood disorder, chronic pain on opioids, and HTN who developed a fever and leukocytosis after being in the ED overflow awaiting placement for rehab.? Pt will be admitted to the hospital for treatment of UTI with IV antibiotics. Sepsis d/t Acute cystitis UA positive for UTI Cx growing E.Coli, pending sensitivity AZO for dysurea Id input appreciated Urology input appreciated, start Doxazosin and Finasteride Start MEropenem for total 10 days Midline placed Abdominal pain Better, CT no acute finding continue bowel regimen HTN Continue antihypertensives Paroxysmal AFib Continue Eliquis, metoprolol, digoxin Insulin-dependent diabetes Hold home meds SSI, Lantus Chronic hypoxic respiratory failure On home O2 4 L, continue Mild intermittent asthma without acute exacerbation Continue home inhalers Seizure disorder Continue phenytoin Chronic iron deficiency anemia Continue iron supplementation Mood disorder Continue quetiapine, trazodone, duloxetine Need for inatient: UTI that needs IV Abx pending safe discharge plan Time Spent With Patient Time: Total time managing care of this patient today ____ minutes. Quality Stroke Does the patient have a stroke diagnosis?: No VTE Prior VTE?: No VTE Risk Level:: Medical - moderate - high VTE Device Contraindication: Treatment Not Indicated VTE Drug Contraindication: N/A - Med Ordered
[2022-08-02] MEDS: Heparin Sodium,Porcine Flush 50 UNITS, 0.9 % Sodium Chloride Flush 5 ML IVFLUSH ×2 (14:18→22:52)
--- NOTE | 2022-08-02 14:38 | MHC.CM.PN ---
per rounds expected dc for this pt is tomorrow pt can not go mhome with niv antibiotics dc plan remains snf
[2022-08-02 16:00] VITALS: BP 115/64; PULSE 77; RESP 18; TEMP 36.8
[2022-08-02 16:34] LABS: Glucose, Whole Blood 225 mg/dL (60-115)
[2022-08-02 20:00] VITALS: BP 114/63; PULSE 80; RESP 18; TEMP 37; O2SAT 97
[2022-08-02 20:11] LABS: Glucose, Whole Blood 225 mg/dL (60-115)
[2022-08-02] MEDS: Doxazosin Mesylate 2 MG TABLET 4 MG PO (22:50)
[2022-08-02] MEDS: Phenytoin Sodium Extended 100 MG CAPSULE 400 MG PO (22:50)
[2022-08-02] MEDS: DULoxetine HCl 60 MG CAPSULE.DR PO (22:51)
[2022-08-02] MEDS: traZODone HCL 100 MG TABLET PO (22:51)
[2022-08-02] MEDS: Insulin Glargine,Hum.rec.anlog 100 UNIT/ML 10 ML VIAL 14 UNIT SUBCUT (22:52)
[2022-08-02] MEDS: Doxycycline Hyclate 100 MG in 0.9 % Sodium Chloride 250 ML 166.67 MG IV (23:01)
[2022-08-02 23:30] VITALS: BP 138/62; PULSE 82; RESP 18; TEMP 37.1; O2SAT 94
[2022-08-03 03:43] VITALS: BP 118/55; PULSE 98; RESP 20; TEMP 36.8; O2SAT 92
[2022-08-03] MEDS: Gabapentin 400 MG CAPSULE PO ×5 (05:39→22:29)
[2022-08-03] MEDS: Omeprazole 20 MG CAPSULE.DR PO (05:39)
[2022-08-03 07:27] VITALS: BP 117/65; PULSE 86; RESP 18; TEMP 36.6; O2SAT 95
[2022-08-03 07:41] LABS: Glucose, Whole Blood 221 mg/dL (60-115)
[2022-08-03 07:55] LABS: Creatinine Clr Calc Pharmacy 128.7; Estimated Glomerular Filt Rate > 60
[2022-08-03] MEDS: Insulin Lispro 100 UNIT/ML 3 ML VIAL SUBCUT ×4 (08:04→22:26)
[2022-08-03] MEDS: DULoxetine HCl 30 MG CAPSULE.DR PO (08:05)
[2022-08-03] MEDS: Atorvastatin Calcium 80 MG TABLET PO (08:06)
[2022-08-03] MEDS: Apixaban 5 MG TABLET PO ×2 (08:06→22:29)
[2022-08-03] MEDS: Empagliflozin 10 MG TABLET PO (08:06)
[2022-08-03] MEDS: Ferrous Sulfate 324 MG TABLET.DR PO (08:06)
[2022-08-03] MEDS: Torsemide 20 MG TABLET 40 MG PO (08:06)
[2022-08-03] MEDS: Digoxin 0.125 MG TABLET PO (08:06)
[2022-08-03] MEDS: Phenytoin Sodium Extended 100 MG CAPSULE 300 MG PO (08:07)
[2022-08-03] MEDS: Phenazopyridine HCL 100 MG TABLET PO ×3 (08:07→17:42)
[2022-08-03] MEDS: QUEtiapine Fumarate 200 MG TABLET PO ×2 (08:07→22:29)
[2022-08-03] MEDS: Finasteride 5 MG TABLET PO (08:07)
[2022-08-03] MEDS: 0.9 % Sodium Chloride Flush 3 ML SYRINGE IVFLUSH ×3 (08:08→22:22)
[2022-08-03] MEDS: Metoprolol Succinate ER 25 MG TAB.ER.24H 75 MG PO ×2 (09:47→22:28)
[2022-08-03] MEDS: oxyCODONE HCl Immed Release 5 MG TABLET 10 MG PO (09:48)
[2022-08-03] MEDS: Heparin Sodium,Porcine Flush 50 UNITS, 0.9 % Sodium Chloride Flush 5 ML IVFLUSH ×3 (09:48→23:57)
[2022-08-03] MEDS: cefTRIAXone sodium 1 GM in 0.9 % Sodium Chloride 50 ML IV (09:59)
[2022-08-03] MEDS: Fluticasone Propionate Nasal 16 GM SPRAY 1 SPRAY NOSTRIL-B ×2 (10:33→22:30)
--- NOTE | 2022-08-03 11:00 | HO.PM.IMPN ---
Subjective Subjective Date of Service: 08/03/22 Interval History: f/u on uti, cystitis Urine Cx growig resistent E.Coli Improving dysuria Midline in place No fever or chills overnight Review of Systems Resolved Fever, chills Improved Nausea, no vomiting Moved his bowels Reporting improving dysuria, no polyuria Denies chest pain/pressure, palpitations Physical Exam Vital Signs: Vital Signs: Last Vital Signs Temp 97.8 F 08/03/22 07:27 Pulse 86 08/03/22 07:27 Resp 18 08/03/22 07:27 BP 117/65 08/03/22 07:27 Pulse Ox 95 08/03/22 07:27 O2 Del Method 08/03/22 07:27 O2 Flow Rate 3 08/03/22 07:27 Oxygen Flow Rate 4 07/27/22 21:26 BMI result Body Mass Index 33.1 Const: Other: General: AO X 3, no acute distress Resp: CTA bilateral, no wheezing CVS: S1,S2,RRR GI: +BS, NT, no distention or tenderness Skin: No rash, dry Neuro: motor grossly intact Psych: appropriate affect Objective Data Active Medications Acetaminophen (Acetaminophen 325 Mg Tablet) 975 mg PO BID PRN PRN Reason: Pain Last Admin: 07/31/22 12:43 Dose: 975 mg Documented By: ALTA Acetaminophen (Acetaminophen 325 Mg Tablet) 650 mg PO Q6H PRN PRN Reason: Pain, Mild (Pain Scale 1-3) Albuterol Sulfate (Albuterol Sulfate 90 Mcg 8 Gm Inhaler) 2 puff INHALE Q4H PRN PRN Reason: Shortness Of Breath Apixaban (Apixaban 5 Mg Tablet) 5 mg PO BID [facility] Last Admin: 08/03/22 08:06 Dose: 5 mg Documented By: TYLER Atorvastatin Calcium (Atorvastatin Calcium 80 Mg Tablet) 80 mg PO DAILY [facility] Last Admin: 08/03/22 08:06 Dose: 80 mg Documented By: TYLER Heparin Sodium (Porcine) 50 (units/ Sodium Chloride 5 ml) 0 units IVFLUSH TID [facility] Last Admin: 08/03/22 09:48 Dose: 50 unit Documented By: TYLER Dextrose (Dextrose 50 % 25 Gm/50 Ml Syringe) 25 gm IVPUSH Q15M PRN; Protocol PRN Reason: per Hypoglycemia Standing Ord. Digoxin (Digoxin 0.125 Mg Tablet) 0.125 mg PO Q2D@0900 [facility] Last Admin: 08/03/22 08:06 Dose: 0.125 mg Documented By: TYLER Docusate Sodium (Docusate Sodium 100 Mg Capsule) 100 mg PO DAILY PRN PRN Reason: Constipation Doxazosin Mesylate (Doxazosin Mesylate 2 Mg Tablet) 4 mg PO BEDTIME [facility]; Protocol Last Admin: 08/02/22 22:50 Dose: 4 mg Documented By: MOISES Duloxetine HCl (Duloxetine Hcl 30 Mg Capsule.) 30 mg PO DAILY [facility] Last Admin: 08/03/22 08:05 Dose: 30 mg Documented By: TYLER Duloxetine HCl (Duloxetine Hcl 60 Mg Capsule.) 60 mg PO BEDTIME [facility] Last Admin: 08/02/22 22:51 Dose: 60 mg Documented By: MOISES Empagliflozin (Empagliflozin 10 Mg Tablet) 10 mg PO DAILY [facility] Last Admin: 08/03/22 08:06 Dose: 10 mg Documented By: TYLER Ferrous Sulfate (Ferrous Sulfate 324 Mg Tablet.) 324 mg PO DAILY [facility] Last Admin: 08/03/22 08:06 Dose: 324 mg Documented By: TYLER Finasteride (Finasteride 5 Mg Tablet) 5 mg PO DAILY [facility] Last Admin: 08/03/22 08:07 Dose: 5 mg Documented By: TYLER Fluticasone Propionate (Fluticasone Propionate Nasal 16 Gm [place]) 1 spray NOSTRIL-B BID [facility] Last Admin: 08/03/22 10:33 Dose: 1 spray Documented By: TYLER Gabapentin (Gabapentin 400 Mg Capsule) 400 mg PO 5XD [facility] Last Admin: 08/03/22 09:47 Dose: 400 mg Documented By: TYLER Glucose (Glucose Gel 15 Gm Gel..Gram.) 15 gm PO Q15M PRN; Protocol PRN Reason: per Hypoglycemia Standing Ord. Hydroxyzine HCl (Hydroxyzine Hcl 25 Mg Tablet) 25 mg PO TID PRN PRN Reason: Anxiety Last Admin: 07/28/22 21:21 Dose: 25 mg Documented By: KYLE Doxycycline Hyclate 100 mg/ (Sodium Chloride) 250 mls @ 166.67 mls/hr IV Q12H [facility] Last Infusion: 08/03/22 00:59 Dose: 0 mls/hr Documented By: MOISES Ceftriaxone Sodium 1 gm/ (Sodium Chloride) 50 mls @ 100 mls/hr IV Q24H [facility] Last Infusion: 08/03/22 10:30 Dose: 0 mls/hr Documented By: TYLER Meropenem 1 gm/ Sodium (Chloride) 100 mls @ 200 mls/hr IV Q8H [facility] Last Infusion: 08/03/22 08:40 Dose: 0 mls/hr Documented By: TYLER Insulin Glargine (Insulin Glargine,Hum.Rec.Anlog 100 Unit/Ml 10 Ml Vial) 14 unit SUBCUT BEDTIME [facility] Last Admin: 08/02/22 22:52 Dose: 14 unit Documented By: MOISES Insulin Human Lispro (Insulin Lispro 100 Unit/Ml 3 Ml Vial) 0 unit SUBCUT QIDACHS [facility]; Protocol Last Admin: 08/03/22 08:04 Dose: 4 unit Documented By: TYLER Lorazepam (Lorazepam 1 Mg Tablet) 2 mg PO TID PRN PRN Reason: Anxiety Last Admin: 08/02/22 23:12 Dose: 2 mg Documented By: MOISES Metoprolol Succinate (Metoprolol Succinate Er 25 Mg Tab.Er.24h) 75 mg PO BID [facility]; Protocol Last Admin: 08/03/22 09:47 Dose: 75 mg Documented By: TYLER Omeprazole (Omeprazole 20 Mg Capsule.Dr) 20 mg PO DAILY@0630 [facility] Last Admin: 08/03/22 05:39 Dose: 20 mg Documented By: MOISES Ondansetron HCl (Ondansetron Hcl 4 Mg/2 Ml Vial) 4 mg IVPUSH Q8H PRN PRN Reason: Nausea and Vomiting Oxycodone HCl (Oxycodone Hcl Immed Release 5 Mg Tablet) 5 mg PO BID PRN PRN Reason: Pain, Severe (Pain Scale 7-10) Last Admin: 07/31/22 21:27 Dose: 5 mg Documented By: DANIE Phenazopyridine HCl (Phenazopyridine Hcl 100 Mg Tablet) 100 mg PO TIDWM [facility] Stop: 08/03/22 17:01 Last Admin: 08/03/22 08:07 Dose: 100 mg Documented By: TYLER Phenytoin Sodium (Phenytoin Sodium Extended 100 Mg Capsule) 300 mg PO DAILY [facility] Last Admin: 08/03/22 08:07 Dose: 300 mg Documented By: TYLER Phenytoin Sodium (Phenytoin Sodium Extended 100 Mg Capsule) 400 mg PO BEDTIME [facility] Last Admin: 08/02/22 22:50 Dose: 400 mg Documented By: MOISES Quetiapine Fumarate (Quetiapine Fumarate 100 Mg Tablet) 100 mg PO BEDTIME PRN PRN Reason: Insomnia Quetiapine Fumarate (Quetiapine Fumarate 200 Mg Tablet) 200 mg PO BID [facility] Last Admin: 08/03/22 08:07 Dose: 200 mg Documented By: TYLER Sodium Chloride (0.9 % Sodium Chloride Flush 3 Ml Syringe) 3 ml IVFLUSH QSHIFT [facility] Last Admin: 08/03/22 08:08 Dose: 3 ml Documented By: TYLER Torsemide (Torsemide 20 Mg Tablet) 40 mg PO DAILY [facility]; Protocol Last Admin: 08/03/22 08:06 Dose: 40 mg Documented By: TYLER Trazodone HCl (Trazodone Hcl 100 Mg Tablet) 100 mg PO BEDTIME [facility] Last Admin: 08/02/22 22:51 Dose: 100 mg Documented By: MOISES Labs 08/02/22 12:21 08/03/22 06:58 Labs: Laboratory Results - last 24 hr 08/02/22 08/02/22 08/02/22 11:35 12:21 16:20 MCV 76.5 L MCH 22.6 L MCHC 29.5 L RDW 19.0 H Plt Count 295 MPV 10.6 Absolute Nucleated RBC 0.000 Nucleated RBC % (auto) 0.0 Estim Creat Clear Calc Estimated GFR POC Glucose 225 H 225 H 08/02/22 08/03/22 08/03/22 20:06 06:58 07:25 MCV MCH MCHC RDW Plt Count MPV Absolute Nucleated RBC Nucleated RBC % (auto) Estim Creat Clear Calc 128.7 Estimated GFR > 60 POC Glucose 225 H 221 H Microbiology Microbiology Results: Microbiology 07/31/22 07:15 Blood Culture - Preliminary Blood - Venous No growth after 48 hours. 07/31/22 07:15 Blood Culture - Preliminary Blood - Venous No growth after 48 hours. 07/30/22 11:42 Urine Culture - Final Urine clean catch - Urine drew top Escherichia coli Assessment and Plan (1) Bladder outlet obstruction: Status: Acute (2) Physical deconditioning: Status: Acute (3) Acute UTI: Status: Acute Plan 62-year-old male with a PMH significant for?paroxysmal AFib on Eliquis, insulin-dependent diabetes, mood disorder, chronic pain on opioids, and HTN who developed a fever and leukocytosis after being in the ED overflow awaiting placement for rehab.? Pt will be admitted to the hospital for treatment of UTI with IV antibiotics. Sepsis d/t Acute cystitis UA positive for UTI Cx growing E.Coli, pending sensitivity AZO for dysurea Id input appreciated Urology input appreciated, start Doxazosin and Finasteride Continue MEropenem for total 2/10 days Midline placed Abdominal pain Better, CT no acute finding continue bowel regimen HTN Continue antihypertensives Paroxysmal AFib Continue Eliquis, metoprolol, digoxin Insulin-dependent diabetes Hold home meds SSI, Lantus Chronic hypoxic respiratory failure On home O2 4 L, continue Mild intermittent asthma without acute exacerbation Continue home inhalers Seizure disorder Continue phenytoin Chronic iron deficiency anemia Continue iron supplementation Mood disorder Continue quetiapine, trazodone, duloxetine Need for inatient: Resistant E coli UTI that needs IV Abx pending safe discharge plan Time Spent With Patient Time: Total time managing care of this patient today ____ minutes. Quality Stroke Does the patient have a stroke diagnosis?: No VTE Prior VTE?: No VTE Risk Level:: Medical - moderate - high VTE Device Contraindication: Treatment Not Indicated VTE Drug Contraindication: N/A - Med Ordered
[2022-08-03 11:24] VITALS: BP 126/73; PULSE 95; RESP 18; TEMP 37.1; O2SAT 97
[2022-08-03 11:37] LABS: Glucose, Whole Blood 254 mg/dL (60-115)
[2022-08-03] MEDS: LORazepam 1 MG TABLET 2 MG PO ×2 (12:00→22:41)
[2022-08-03] MEDS: Doxycycline Hyclate 100 MG in 0.9 % Sodium Chloride 250 ML 166.7 MG IV ×2 (12:02→22:22)
[2022-08-03 15:34] LABS: Glucose, Whole Blood 229 mg/dL (60-115)
[2022-08-03 15:48] VITALS: BP 99/56; PULSE 86; RESP 18; TEMP 36.4; O2SAT 94
[2022-08-03] MEDS: oxyCODONE HCl Immed Release 5 MG TABLET PO (17:41)
[2022-08-03] MEDS: Acetaminophen 325 MG TABLET 650 MG PO (17:42)
[2022-08-03 20:00] VITALS: BP 96/62; PULSE 97; RESP 18; TEMP 36.9; O2SAT 93
[2022-08-03 20:16] LABS: Glucose, Whole Blood 269 mg/dL (60-115)
[2022-08-03] MEDS: Insulin Glargine,Hum.rec.anlog 100 UNIT/ML 10 ML VIAL 14 UNIT SUBCUT (22:27)
[2022-08-03] MEDS: Phenytoin Sodium Extended 100 MG CAPSULE 400 MG PO (22:28)
[2022-08-03] MEDS: traZODone HCL 100 MG TABLET PO (22:29)
[2022-08-03] MEDS: Doxazosin Mesylate 2 MG TABLET 4 MG PO (22:29)
[2022-08-03] MEDS: DULoxetine HCl 60 MG CAPSULE.DR PO (22:29)
[2022-08-03 23:41] VITALS: BP 110/55; PULSE 77; RESP 18; TEMP 37.1; O2SAT 94
[2022-08-04 04:00] VITALS: BP 112/75; PULSE 77; RESP 18; TEMP 36.6; O2SAT 93
[2022-08-04] MEDS: Gabapentin 400 MG CAPSULE PO ×5 (05:55→21:58)
[2022-08-04] MEDS: oxyCODONE HCl Immed Release 5 MG TABLET PO ×2 (05:55→22:25)
[2022-08-04] MEDS: Omeprazole 20 MG CAPSULE.DR PO (05:56)
[2022-08-04 07:26] LABS: Creatinine Clr Calc Pharmacy 122.6; Estimated Glomerular Filt Rate > 60
[2022-08-04 07:35] LABS: Glucose, Whole Blood 240 mg/dL (60-115)
[2022-08-04 07:50] VITALS: BP 102/70; PULSE 77; RESP 16; TEMP 37.2; O2SAT 95
[2022-08-04] MEDS: QUEtiapine Fumarate 200 MG TABLET PO ×2 (08:06→21:58)
[2022-08-04] MEDS: Phenytoin Sodium Extended 100 MG CAPSULE 300 MG PO (08:07)
[2022-08-04] MEDS: Atorvastatin Calcium 80 MG TABLET PO (08:07)
[2022-08-04] MEDS: Ferrous Sulfate 324 MG TABLET.DR PO (08:07)
[2022-08-04] MEDS: DULoxetine HCl 30 MG CAPSULE.DR PO (08:07)
[2022-08-04] MEDS: Torsemide 20 MG TABLET 40 MG PO (08:07)
[2022-08-04] MEDS: Finasteride 5 MG TABLET PO (08:08)
[2022-08-04] MEDS: Apixaban 5 MG TABLET PO ×2 (08:08→21:58)
[2022-08-04] MEDS: Empagliflozin 10 MG TABLET PO (08:08)
[2022-08-04] MEDS: Insulin Lispro 100 UNIT/ML 3 ML VIAL SUBCUT ×4 (08:08→21:59)
[2022-08-04] MEDS: Heparin Sodium,Porcine Flush 50 UNITS, 0.9 % Sodium Chloride Flush 5 ML IVFLUSH ×2 (08:10→17:04)
[2022-08-04] MEDS: 0.9 % Sodium Chloride Flush 3 ML SYRINGE IVFLUSH ×2 (08:11→16:26)
[2022-08-04] MEDS: Metoprolol Succinate ER 25 MG TAB.ER.24H 75 MG PO ×2 (08:20→21:58)
[2022-08-04] MEDS: Fluticasone Propionate Nasal 16 GM SPRAY 1 SPRAY NOSTRIL-B (08:22)
[2022-08-04 11:04] LABS: Glucose, Whole Blood 238 mg/dL (60-115)
[2022-08-04 11:22] VITALS: BP 100/71; PULSE 112; RESP 16; TEMP 37.2; O2SAT 100
[2022-08-04] MEDS: LORazepam 1 MG TABLET 2 MG PO ×2 (11:41→22:03)
--- NOTE | 2022-08-04 12:06 | HO.PM.IMPN ---
Subjective Subjective Date of Service: 08/04/22 Interval History: cc: fever interval history:no complaints Physical Exam Vital Signs: Vital Signs: Last Vital Signs Temp 98.9 F 08/04/22 11:22 Pulse 112 H 08/04/22 11:22 Resp 16 08/04/22 11:22 BP 100/71 08/04/22 11:22 Pulse Ox 100 08/04/22 11:22 O2 Del Method 08/04/22 11:22 O2 Flow Rate 3 08/04/22 11:22 Oxygen Flow Rate 4 07/27/22 21:26 BMI result Body Mass Index 33.1 Const: Other: General: AO X 3, no acute distress Resp: CTA bilateral, no wheezing CVS: S1,S2,RRR GI: +BS, NT, no distention or tenderness Skin: No rash, dry Neuro: motor grossly intact Psych: appropriate affect Objective Data Active Medications Acetaminophen (Acetaminophen 325 Mg Tablet) 975 mg PO BID PRN PRN Reason: Pain Last Admin: 07/31/22 12:43 Dose: 975 mg Documented By: ALTA Acetaminophen (Acetaminophen 325 Mg Tablet) 650 mg PO Q6H PRN PRN Reason: Pain, Mild (Pain Scale 1-3) Last Admin: 08/03/22 17:42 Dose: 650 mg Documented By: TYLER Albuterol Sulfate (Albuterol Sulfate 90 Mcg 8 Gm Inhaler) 2 puff INHALE Q4H PRN PRN Reason: Shortness Of Breath Apixaban (Apixaban 5 Mg Tablet) 5 mg PO BID [facility] Last Admin: 08/04/22 08:08 Dose: 5 mg Documented By: RADHA Atorvastatin Calcium (Atorvastatin Calcium 80 Mg Tablet) 80 mg PO DAILY [facility] Last Admin: 08/04/22 08:07 Dose: 80 mg Documented By: RADHA Heparin Sodium (Porcine) 50 (units/ Sodium Chloride 5 ml) 0 units IVFLUSH TID [facility] Last Admin: 08/04/22 08:10 Dose: 50 unit Documented By: RADHA Dextrose (Dextrose 50 % 25 Gm/50 Ml Syringe) 25 gm IVPUSH Q15M PRN; Protocol PRN Reason: per Hypoglycemia Standing Ord. Digoxin (Digoxin 0.125 Mg Tablet) 0.125 mg PO Q2D@0900 [facility] Last Admin: 08/03/22 08:06 Dose: 0.125 mg Documented By: TYLER Docusate Sodium (Docusate Sodium 100 Mg Capsule) 100 mg PO DAILY PRN PRN Reason: Constipation Doxazosin Mesylate (Doxazosin Mesylate 2 Mg Tablet) 4 mg PO BEDTIME [facility]; Protocol Last Admin: 08/03/22 22:29 Dose: 4 mg Documented By: NICOLLE Duloxetine HCl (Duloxetine Hcl 30 Mg Capsule.) 30 mg PO DAILY [facility] Last Admin: 08/04/22 08:07 Dose: 30 mg Documented By: RADHA Duloxetine HCl (Duloxetine Hcl 60 Mg Capsule.) 60 mg PO BEDTIME [facility] Last Admin: 08/03/22 22:29 Dose: 60 mg Documented By: NICOLLE Empagliflozin (Empagliflozin 10 Mg Tablet) 10 mg PO DAILY [facility] Last Admin: 08/04/22 08:08 Dose: 10 mg Documented By: RADHA Ferrous Sulfate (Ferrous Sulfate 324 Mg Tablet.) 324 mg PO DAILY [facility] Last Admin: 08/04/22 08:07 Dose: 324 mg Documented By: RADHA Finasteride (Finasteride 5 Mg Tablet) 5 mg PO DAILY [facility] Last Admin: 08/04/22 08:08 Dose: 5 mg Documented By: RADHA Fluticasone Propionate (Fluticasone Propionate Nasal 16 Gm [place]) 1 spray NOSTRIL-B BID [facility] Last Admin: 08/04/22 08:22 Dose: 1 spray Documented By: RADHA Gabapentin (Gabapentin 400 Mg Capsule) 400 mg PO 5XD [facility] Last Admin: 08/04/22 10:41 Dose: 400 mg Documented By: RADHA Glucose (Glucose Gel 15 Gm Gel..Gram.) 15 gm PO Q15M PRN; Protocol PRN Reason: per Hypoglycemia Standing Ord. Hydroxyzine HCl (Hydroxyzine Hcl 25 Mg Tablet) 25 mg PO TID PRN PRN Reason: Anxiety Last Admin: 07/28/22 21:21 Dose: 25 mg Documented By: KYLE Meropenem 1 gm/ Sodium (Chloride) 100 mls @ 200 mls/hr IV Q8H [facility] Last Infusion: 08/04/22 10:00 Dose: 0 mls/hr Documented By: RADHA Insulin Glargine (Insulin Glargine,Hum.Rec.Anlog 100 Unit/Ml 10 Ml Vial) 14 unit SUBCUT BEDTIME [facility] Last Admin: 08/03/22 22:27 Dose: 14 unit Documented By: NICOLLE Insulin Human Lispro (Insulin Lispro 100 Unit/Ml 3 Ml Vial) 0 unit SUBCUT QIDACHS [facility]; Protocol Last Admin: 08/04/22 11:12 Dose: 4 unit Documented By: RADHA Lorazepam (Lorazepam 1 Mg Tablet) 2 mg PO TID PRN PRN Reason: Anxiety Last Admin: 08/04/22 11:41 Dose: 2 mg Documented By: RADHA Metoprolol Succinate (Metoprolol Succinate Er 25 Mg Tab.Er.24h) 75 mg PO BID [facility]; Protocol Last Admin: 08/04/22 08:20 Dose: 75 mg Documented By: RADHA Omeprazole (Omeprazole 20 Mg Capsule.Dr) 20 mg PO DAILY@0630 [facility] Last Admin: 08/04/22 05:56 Dose: 20 mg Documented By: NICOLLE Ondansetron HCl (Ondansetron Hcl 4 Mg/2 Ml Vial) 4 mg IVPUSH Q8H PRN PRN Reason: Nausea and Vomiting Oxycodone HCl (Oxycodone Hcl Immed Release 5 Mg Tablet) 5 mg PO BID PRN PRN Reason: Pain, Severe (Pain Scale 7-10) Last Admin: 08/04/22 05:55 Dose: 5 mg Documented By: NICOLLE Phenytoin Sodium (Phenytoin Sodium Extended 100 Mg Capsule) 300 mg PO DAILY [facility] Last Admin: 08/04/22 08:07 Dose: 300 mg Documented By: RADHA Phenytoin Sodium (Phenytoin Sodium Extended 100 Mg Capsule) 400 mg PO BEDTIME [facility] Last Admin: 08/03/22 22:28 Dose: 400 mg Documented By: NICOLLE Quetiapine Fumarate (Quetiapine Fumarate 100 Mg Tablet) 100 mg PO BEDTIME PRN PRN Reason: Insomnia Quetiapine Fumarate (Quetiapine Fumarate 200 Mg Tablet) 200 mg PO BID [facility] Last Admin: 08/04/22 08:06 Dose: 200 mg Documented By: RADHA Sodium Chloride (0.9 % Sodium Chloride Flush 3 Ml Syringe) 3 ml IVFLUSH QSHIFT [facility] Last Admin: 08/04/22 08:11 Dose: 3 ml Documented By: RADHA Torsemide (Torsemide 20 Mg Tablet) 40 mg PO DAILY [facility]; Protocol Last Admin: 08/04/22 08:07 Dose: 40 mg Documented By: RADHA Trazodone HCl (Trazodone Hcl 100 Mg Tablet) 100 mg PO BEDTIME [facility] Last Admin: 08/03/22 22:29 Dose: 100 mg Documented By: CTORRZ Labs 08/02/22 12:21 08/04/22 06:42 Labs: Laboratory Results - last 24 hr 08/03/22 08/03/22 08/04/22 15:22 20:09 06:42 Estim Creat Clear Calc 122.6 Estimated GFR > 60 POC Glucose 229 H 269 H 08/04/22 08/04/22 07:27 10:59 Estim Creat Clear Calc Estimated GFR POC Glucose 240 H 238 H Assessment and Plan (1) Bladder outlet obstruction: Status: Acute (2) Physical deconditioning: Status: Acute (3) Acute UTI: Status: Acute Plan 62-year-old male with a PMH significant for?paroxysmal AFib on Eliquis, insulin-dependent diabetes, mood disorder, chronic pain on opioids, and HTN who developed a fever and leukocytosis after being in the ED overflow awaiting placement for rehab.? Pt will be admitted to the hospital for treatment of UTI with IV antibiotics. Sepsis d/t Acute cystitis due to ESBL ecoli AZO for dysurea Id input appreciated Urology input appreciated, start Doxazosin and Finasteride Continue MEropenem/ertapenem for total 3/10 days Midline placed Abdominal pain Better, CT no acute finding continue bowel regimen HTN toprol, caredura Paroxysmal AFib Continue Eliquis, metoprolol, digoxin Insulin-dependent diabetes Hold home meds SSI, Lantus Chronic hypoxic respiratory failure On home O2 4 L, continue Mild intermittent asthma without acute exacerbation Continue home inhalers Seizure disorder Continue phenytoin Chronic iron deficiency anemia Continue iron supplementation Mood disorder Continue quetiapine, trazodone, duloxetine dvt prophylaxis - eliquis full code Need for inatient: Resistant E coli UTI that needs IV Abx pending safe discharge plan Time Spent With Patient Time: Total time managing care of this patient today ____ minutes. Quality Stroke Does the patient have a stroke diagnosis?: No VTE Prior VTE?: No VTE Risk Level:: Medical - moderate - high VTE Device Contraindication: Treatment Not Indicated VTE Drug Contraindication: N/A - Med Ordered
[2022-08-04 15:17] VITALS: BP 106/58; PULSE 89; RESP 18; TEMP 37.2; O2SAT 97
--- NOTE | 2022-08-04 15:46 | MHC.CM.PN ---
pt not ready for dc dc plans remain str
[2022-08-04 15:51] LABS: Glucose, Whole Blood 252 mg/dL (60-115)
[2022-08-04 20:00] VITALS: BP 132/78; PULSE 78; RESP 18; TEMP 37.1; O2SAT 97
[2022-08-04 20:16] LABS: Glucose, Whole Blood 192 mg/dL (60-115)
[2022-08-04] MEDS: Doxazosin Mesylate 2 MG TABLET 4 MG PO (21:58)
[2022-08-04] MEDS: traZODone HCL 100 MG TABLET PO (21:58)
[2022-08-04] MEDS: DULoxetine HCl 60 MG CAPSULE.DR PO (21:58)
[2022-08-04] MEDS: Phenytoin Sodium Extended 100 MG CAPSULE 400 MG PO (21:59)
[2022-08-04] MEDS: Insulin Glargine,Hum.rec.anlog 100 UNIT/ML 10 ML VIAL 14 UNIT SUBCUT (21:59)
[2022-08-05] VITALS (8 sets, daily range): BP systolic 87–126; BP diastolic 48–71; PULSE 65–142; RESP 16–20; TEMP 36.2–37.2; O2SAT 92–99
[2022-08-05 06:12] LABS: Hematocrit 31.7 % (42.0-52.0); Hemoglobin 9.1 g/dl (14.0-18.0); Mean Corpuscular HGB Conc 28.7 g/dl (31.0-36.0); Mean Corpuscular Hemoglobin 22.5 pg (27.0-33.0); Mean Corpuscular Volume 78.3 fL (80.0-98.0); Platelet Count 310 X10*3/uL (160-400); Red Blood Count 4.05 X10*6/uL (4.60-5.80); Red Cell Distribution Width 19.3 % (11.0-16.0); White Blood Count 5.1 X10*3/uL (4.8-10.8)
[2022-08-05 06:26] LABS: Anion Gap 13 (12-20); Blood Urea Nitrogen 14 mg/dL (9-16); Calcium 8.1 mg/dL (8.4-10.2); Carbon Dioxide 33 mmol/L (22-29); Chloride 96 mmol/L (96-108); Creatinine Clr Calc Pharmacy 148.9; Estimated Glomerular Filt Rate > 60; Glucose Fasting 192 mg/dL (60-99); Potassium 2.7 mmol/L (3.3-5.1); Sodium 139 mmol/L (135-145)
[2022-08-05 07:27] LABS: Glucose, Whole Blood 169 mg/dL (60-115)
[2022-08-05] MEDS: DULoxetine HCl 30 MG CAPSULE.DR PO (08:00)
[2022-08-05] MEDS: Potassium Chloride ER 20 MEQ TAB.ER.PRT 40 MEQ PO ×2 (08:00→11:54)
[2022-08-05] MEDS: Phenytoin Sodium Extended 100 MG CAPSULE 300 MG PO (08:00)
[2022-08-05] MEDS: Apixaban 5 MG TABLET PO ×2 (08:01→21:01)
[2022-08-05] MEDS: Empagliflozin 10 MG TABLET PO (08:01)
[2022-08-05] MEDS: Insulin Lispro 100 UNIT/ML 3 ML VIAL SUBCUT ×4 (08:01→21:12)
[2022-08-05] MEDS: Metoprolol Succinate ER 25 MG TAB.ER.24H 75 MG PO ×2 (08:01→21:00)
[2022-08-05] MEDS: Ferrous Sulfate 324 MG TABLET.DR PO (08:01)
[2022-08-05] MEDS: Torsemide 20 MG TABLET 40 MG PO (08:01)
[2022-08-05] MEDS: QUEtiapine Fumarate 200 MG TABLET PO ×2 (08:01→21:01)
[2022-08-05] MEDS: 0.9 % Sodium Chloride Flush 3 ML SYRINGE IVFLUSH ×3 (08:02→23:04)
[2022-08-05] MEDS: Digoxin 0.125 MG TABLET PO (08:02)
[2022-08-05] MEDS: Heparin Sodium,Porcine Flush 50 UNITS, 0.9 % Sodium Chloride Flush 5 ML IVFLUSH ×3 (08:02→21:03)
[2022-08-05] MEDS: Atorvastatin Calcium 80 MG TABLET PO (08:02)
[2022-08-05] MEDS: Finasteride 5 MG TABLET PO (08:03)
[2022-08-05] MEDS: Fluticasone Propionate Nasal 16 GM SPRAY 1 SPRAY NOSTRIL-B (08:03)
[2022-08-05] MEDS: Gabapentin 400 MG CAPSULE PO ×4 (08:04→21:01)
[2022-08-05] MEDS: LORazepam 1 MG TABLET 2 MG PO ×2 (08:07→18:01)
[2022-08-05] MEDS: Acetaminophen 325 MG TABLET 975 MG PO (08:07)
--- NOTE | 2022-08-05 09:25 | HO.PM.IMPN ---
Subjective Subjective Date of Service: 08/05/22 Interval History: cc: fever interval history:no complaints Physical Exam Vital Signs: Vital Signs: Last Vital Signs Temp 97.2 F 08/05/22 07:13 Pulse 65 08/05/22 07:13 Resp 16 08/05/22 07:13 BP 112/57 L 08/05/22 07:13 Pulse Ox 92 08/05/22 07:13 O2 Del Method 08/05/22 07:13 O2 Flow Rate 3 08/05/22 07:13 Oxygen Flow Rate 4 07/27/22 21:26 BMI result Body Mass Index 33.1 Const: Other: General: AO X 3, no acute distress Resp: CTA bilateral, no wheezing CVS: S1,S2,RRR GI: +BS, NT, no distention or tenderness Skin: No rash, dry Neuro: motor grossly intact Psych: appropriate affect Objective Data Active Medications Acetaminophen (Acetaminophen 325 Mg Tablet) 975 mg PO BID PRN PRN Reason: Pain Last Admin: 08/05/22 08:07 Dose: 975 mg Documented By: DANNY Acetaminophen (Acetaminophen 325 Mg Tablet) 650 mg PO Q6H PRN PRN Reason: Pain, Mild (Pain Scale 1-3) Last Admin: 08/03/22 17:42 Dose: 650 mg Documented By: TYLER Albuterol Sulfate (Albuterol Sulfate 90 Mcg 8 Gm Inhaler) 2 puff INHALE Q4H PRN PRN Reason: Shortness Of Breath Apixaban (Apixaban 5 Mg Tablet) 5 mg PO BID [facility] Last Admin: 08/05/22 08:01 Dose: 5 mg Documented By: DANNY Atorvastatin Calcium (Atorvastatin Calcium 80 Mg Tablet) 80 mg PO DAILY [facility] Last Admin: 08/05/22 08:02 Dose: 80 mg Documented By: DANNY Heparin Sodium (Porcine) 50 (units/ Sodium Chloride 5 ml) 0 units IVFLUSH TID [facility] Last Admin: 08/05/22 08:02 Dose: 50 unit Documented By: DANNY Dextrose (Dextrose 50 % 25 Gm/50 Ml Syringe) 25 gm IVPUSH Q15M PRN; Protocol PRN Reason: per Hypoglycemia Standing Ord. Digoxin (Digoxin 0.125 Mg Tablet) 0.125 mg PO Q2D@0900 [facility] Last Admin: 08/05/22 08:02 Dose: 0.125 mg Documented By: DANNY Docusate Sodium (Docusate Sodium 100 Mg Capsule) 100 mg PO DAILY PRN PRN Reason: Constipation Doxazosin Mesylate (Doxazosin Mesylate 2 Mg Tablet) 4 mg PO BEDTIME [facility]; Protocol Last Admin: 08/04/22 21:58 Dose: 4 mg Documented By: BREN Duloxetine HCl (Duloxetine Hcl 30 Mg Capsule.) 30 mg PO DAILY [facility] Last Admin: 08/05/22 08:00 Dose: 30 mg Documented By: DANNY Duloxetine HCl (Duloxetine Hcl 60 Mg Capsule.) 60 mg PO BEDTIME [facility] Last Admin: 08/04/22 21:58 Dose: 60 mg Documented By: BREN Empagliflozin (Empagliflozin 10 Mg Tablet) 10 mg PO DAILY [facility] Last Admin: 08/05/22 08:01 Dose: 10 mg Documented By: DANNY Ferrous Sulfate (Ferrous Sulfate 324 Mg Tablet.) 324 mg PO DAILY [facility] Last Admin: 08/05/22 08:01 Dose: 324 mg Documented By: DANNY Finasteride (Finasteride 5 Mg Tablet) 5 mg PO DAILY [facility] Last Admin: 08/05/22 08:03 Dose: 5 mg Documented By: DANNY Fluticasone Propionate (Fluticasone Propionate Nasal 16 Gm [place]) 1 spray NOSTRIL-B BID [facility] Last Admin: 08/05/22 08:03 Dose: 1 spray Documented By: DANNY Gabapentin (Gabapentin 400 Mg Capsule) 400 mg PO 5XD [facility] Last Admin: 08/05/22 08:04 Dose: 400 mg Documented By: DANNY Glucose (Glucose Gel 15 Gm Gel..Gram.) 15 gm PO Q15M PRN; Protocol PRN Reason: per Hypoglycemia Standing Ord. Hydroxyzine HCl (Hydroxyzine Hcl 25 Mg Tablet) 25 mg PO TID PRN PRN Reason: Anxiety Last Admin: 07/28/22 21:21 Dose: 25 mg Documented By: KYLE Meropenem 1 gm/ Sodium (Chloride) 100 mls @ 200 mls/hr IV Q8H [facility] Last Infusion: 08/05/22 08:46 Dose: 0 mls/hr Documented By: DANNY Insulin Glargine (Insulin Glargine,Hum.Rec.Anlog 100 Unit/Ml 10 Ml Vial) 14 unit SUBCUT BEDTIME [facility] Last Admin: 08/04/22 21:59 Dose: 14 unit Documented By: BREN Insulin Human Lispro (Insulin Lispro 100 Unit/Ml 3 Ml Vial) 0 unit SUBCUT QIDACHS [facility]; Protocol Last Admin: 08/05/22 08:01 Dose: 2 unit Documented By: DANNY Lorazepam (Lorazepam 1 Mg Tablet) 2 mg PO TID PRN PRN Reason: Anxiety Last Admin: 08/05/22 08:07 Dose: 2 mg Documented By: DANNY Metoprolol Succinate (Metoprolol Succinate Er 25 Mg Tab.Er.24h) 75 mg PO BID [facility]; Protocol Last Admin: 08/05/22 08:01 Dose: 75 mg Documented By: DANNY Omeprazole (Omeprazole 20 Mg Capsule.) 20 mg PO DAILY@0630 [facility] Last Admin: 08/05/22 08:03 Dose: Not Given Documented By: DANNY Non-Admin Reason: Patient Refused Ondansetron HCl (Ondansetron Hcl 4 Mg/2 Ml Vial) 4 mg IVPUSH Q8H PRN PRN Reason: Nausea and Vomiting Oxycodone HCl (Oxycodone Hcl Immed Release 5 Mg Tablet) 5 mg PO Q6H PRN PRN Reason: moderate pain Phenytoin Sodium (Phenytoin Sodium Extended 100 Mg Capsule) 300 mg PO DAILY [facility] Last Admin: 08/05/22 08:00 Dose: 300 mg Documented By: DANNY Phenytoin Sodium (Phenytoin Sodium Extended 100 Mg Capsule) 400 mg PO BEDTIME [facility] Last Admin: 08/04/22 21:59 Dose: 400 mg Documented By: BREN Potassium Chloride (Potassium Chloride Er 20 Meq Tab.Er.Prt) 40 meq PO ONCE ONE Stop: 08/05/22 11:01 Quetiapine Fumarate (Quetiapine Fumarate 100 Mg Tablet) 100 mg PO BEDTIME PRN PRN Reason: Insomnia Quetiapine Fumarate (Quetiapine Fumarate 200 Mg Tablet) 200 mg PO BID [facility] Last Admin: 08/05/22 08:01 Dose: 200 mg Documented By: DANNY Sodium Chloride (0.9 % Sodium Chloride Flush 3 Ml Syringe) 3 ml IVFLUSH QSHIFT [facility] Last Admin: 08/05/22 08:02 Dose: 3 ml Documented By: DANNY Torsemide (Torsemide 20 Mg Tablet) 40 mg PO DAILY [facility]; Protocol Last Admin: 08/05/22 08:01 Dose: 40 mg Documented By: DANNY Trazodone HCl (Trazodone Hcl 100 Mg Tablet) 100 mg PO BEDTIME [facility] Last Admin: 08/04/22 21:58 Dose: 100 mg Documented By: BREN Labs 08/05/22 05:52 08/05/22 05:52 Labs: Laboratory Results - last 24 hr 08/04/22 08/04/22 08/04/22 10:59 15:12 19:59 MCV MCH MCHC RDW Plt Count MPV Absolute Nucleated RBC Nucleated RBC % (auto) Anion Gap Estim Creat Clear Calc Estimated GFR POC Glucose 238 H 252 H 192 H Fasting Glucose Calcium 08/05/22 08/05/22 08/05/22 05:52 05:52 07:12 MCV 78.3 L MCH 22.5 L MCHC 28.7 L RDW 19.3 H Plt Count 310 MPV 11.0 Absolute Nucleated RBC 0.000 Nucleated RBC % (auto) 0.0 Anion Gap 13 Estim Creat Clear Calc 148.9 Estimated GFR > 60 POC Glucose 169 H Fasting Glucose 192 H Calcium 8.1 L D Microbiology Microbiology Results: Microbiology 07/31/22 07:15 Blood Culture - Final Blood - Venous No growth after 5 days. 07/31/22 07:15 Blood Culture - Final Blood - Venous No growth after 5 days. 07/30/22 11:41 Blood Culture - Final Blood - Venous No growth after 5 days. 07/30/22 11:41 Blood Culture - Final Blood - Venous No growth after 5 days. Assessment and Plan (1) Bladder outlet obstruction: Status: Acute (2) Physical deconditioning: Status: Acute (3) Acute UTI: Status: Acute Plan 62-year-old male with a PMH significant for?paroxysmal AFib on Eliquis, insulin-dependent diabetes, mood disorder, chronic pain on opioids, and HTN who developed a fever and leukocytosis after being in the ED overflow awaiting placement for rehab.? Pt will be admitted to the hospital for treatment of UTI with IV antibiotics. Sepsis d/t Acute cystitis due to ESBL ecoli AZO for dysurea Id input appreciated Urology input appreciated, start Doxazosin and Finasteride Continue MEropenem/ertapenem for total 4/10 days (end august 11) Midline placed acute hypokalemia 2.7 replace and monitor Abdominal pain Better, CT no acute finding continue bowel regimen HTN toprol, caredura Paroxysmal AFib Continue Eliquis, metoprolol, digoxin Insulin-dependent diabetes Hold home meds SSI, Lantus Chronic hypoxic respiratory failure On home O2 4 L, continue Mild intermittent asthma without acute exacerbation Continue home inhalers Seizure disorder Continue phenytoin Chronic iron deficiency anemia Continue iron supplementation Mood disorder Continue quetiapine, trazodone, duloxetine dvt prophylaxis - eliquis full code Need for inatient: Resistant E coli UTI that needs IV Abx pending safe discharge plan Time Spent With Patient Time: Total time managing care of this patient today ____ minutes. Quality Stroke Does the patient have a stroke diagnosis?: No VTE Prior VTE?: No VTE Risk Level:: Medical - moderate - high VTE Device Contraindication: Treatment Not Indicated VTE Drug Contraindication: N/A - Med Ordered
[2022-08-05 11:20] LABS: Glucose, Whole Blood 209 mg/dL (60-115)
[2022-08-05] MEDS: oxyCODONE HCl Immed Release 5 MG TABLET PO ×2 (11:54→18:02)
[2022-08-05 16:05] LABS: Glucose, Whole Blood 280 mg/dL (60-115)
--- NOTE | 2022-08-05 18:14 | PC.NURSE ---
Addendum entered by Mariama Hayes RN 08/05/22 18:44: Pt displaying accusatory behavior and calling [employer]. Officer came on site and informed this production underwriter that the pt made a claim. The officer stated he was not reporting the incident at this time. Safety precautions remain in place, supervisor vat house and gunite mixer notified of situation. Original Note: report received from overnight RN, medical practice administrator per AUG. Pt assisted OOB to chair, tolerated well. Back to bed c/o 9/10 pain - medication per AUG. Pt experienced episode of incontinence, assisted with rojelio care and bed change with PROCESS ENGINEERING TECHNICIAN. Safety precautions in place, call womack within reach, bed alarm on, camera in room.
[2022-08-05 20:18] LABS: Glucose, Whole Blood 216 mg/dL (60-115)
[2022-08-05] MEDS: DULoxetine HCl 60 MG CAPSULE.DR PO (21:01)
[2022-08-05] MEDS: Doxazosin Mesylate 2 MG TABLET 4 MG PO (21:01)
[2022-08-05] MEDS: Phenytoin Sodium Extended 100 MG CAPSULE 400 MG PO (21:01)
[2022-08-05] MEDS: traZODone HCL 100 MG TABLET PO (21:02)
[2022-08-05] MEDS: Insulin Glargine,Hum.rec.anlog 100 UNIT/ML 10 ML VIAL 14 UNIT SUBCUT (21:12)
[2022-08-05] MEDS: Docusate Sodium 100 MG CAPSULE PO (21:16)
[2022-08-06] VITALS (9 sets, daily range): BP systolic 84–145; BP diastolic 48–77; PULSE 64–117; RESP 18–20; TEMP 36.3–37.4; O2SAT 94–100
--- NOTE | 2022-08-06 01:45 | PC.NURSE ---
Addendum entered by Ana Cárdenas RN 08/06/22 03:25: BP improved and is now 98/56 s/p 1L ns bolus. Original Note: Pt hypotensive, manual BP 84/48. automatic BP 80/47. denies any lightheadedness or dizziness. MD Foley notified and ordered IV fluid bolus.
[2022-08-06] MEDS: 0.9 % Sodium Chloride 1,000 ML 999 ML IV (02:15)
[2022-08-06] MEDS: Acetaminophen 325 MG TABLET 975 MG PO (06:01)
[2022-08-06] MEDS: Gabapentin 400 MG CAPSULE PO ×5 (06:01→20:15)
[2022-08-06] MEDS: Omeprazole 20 MG CAPSULE.DR PO (06:01)
[2022-08-06 07:25] LABS: Glucose, Whole Blood 184 mg/dL (60-115)
[2022-08-06 07:57] LABS: Creatinine Clr Calc Pharmacy 140.9; Estimated Glomerular Filt Rate > 60
[2022-08-06] MEDS: Insulin Lispro 100 UNIT/ML 3 ML VIAL SUBCUT ×4 (08:08→20:20)
[2022-08-06 08:09] LABS: Anion Gap 12 (12-20); Blood Urea Nitrogen 14 mg/dL (9-16); Calcium 7.8 mg/dL (8.4-10.2); Carbon Dioxide 33 mmol/L (22-29); Chloride 97 mmol/L (96-108); Glucose Random 195 mg/dL (60-115); Magnesium 1.7 mg/dL (1.6-2.6); Potassium 3.2 mmol/L (3.3-5.1); Sodium 139 mmol/L (135-145)
[2022-08-06] MEDS: Finasteride 5 MG TABLET PO (08:09)
[2022-08-06] MEDS: 0.9 % Sodium Chloride Flush 3 ML SYRINGE IVFLUSH ×2 (08:09→14:41)
[2022-08-06] MEDS: QUEtiapine Fumarate 200 MG TABLET PO ×2 (08:09→20:15)
[2022-08-06] MEDS: Phenytoin Sodium Extended 100 MG CAPSULE 300 MG PO (08:09)
[2022-08-06] MEDS: Metoprolol Succinate ER 25 MG TAB.ER.24H 75 MG PO ×2 (08:09→20:29)
[2022-08-06] MEDS: Ferrous Sulfate 324 MG TABLET.DR PO (08:10)
[2022-08-06] MEDS: Fluticasone Propionate Nasal 16 GM SPRAY 1 SPRAY NOSTRIL-B ×2 (08:10→20:23)
[2022-08-06] MEDS: Apixaban 5 MG TABLET PO ×2 (08:10→20:15)
[2022-08-06] MEDS: DULoxetine HCl 30 MG CAPSULE.DR PO (08:10)
[2022-08-06] MEDS: Atorvastatin Calcium 80 MG TABLET PO (08:10)
[2022-08-06] MEDS: Empagliflozin 10 MG TABLET PO (08:10)
[2022-08-06] MEDS: LORazepam 1 MG TABLET 2 MG PO (08:17)
--- NOTE | 2022-08-06 11:27 | P.PNIM_ITS ---
Subjective Subjective Date of Service: 08/06/22 Interval History: was asymptomatic but hypotensive last night, responded to iv fluids Physical Exam Vital Signs: Vital Signs: Last Vital Signs Temp 97.3 F 08/06/22 11:18 Pulse 64 08/06/22 11:18 Resp 20 08/06/22 11:18 BP 102/57 L 08/06/22 11:18 Pulse Ox 100 08/06/22 11:18 O2 Del Method 08/06/22 11:18 O2 Flow Rate 3 08/06/22 11:18 Oxygen Flow Rate 4 07/27/22 21:26 BMI result Body Mass Index 33.1 Const: Other: General: AO X 3, no acute distress Resp: CTA bilateral, no wheezing CVS: S1,S2,RRR GI: +BS, NT, no distention or tenderness Skin: No rash, dry Neuro: motor grossly intact Psych: appropriate affect Objective Data Active Medications Acetaminophen (Acetaminophen 325 Mg Tablet) 975 mg PO BID PRN PRN Reason: Pain Last Admin: 08/06/22 06:01 Dose: 975 mg Documented By: ERIN Acetaminophen (Acetaminophen 325 Mg Tablet) 650 mg PO Q6H PRN PRN Reason: Pain, Mild (Pain Scale 1-3) Last Admin: 08/03/22 17:42 Dose: 650 mg Documented By: TYLER Albuterol Sulfate (Albuterol Sulfate 90 Mcg 8 Gm Inhaler) 2 puff INHALE Q4H PRN PRN Reason: Shortness Of Breath Apixaban (Apixaban 5 Mg Tablet) 5 mg PO BID [facility] Last Admin: 08/06/22 08:10 Dose: 5 mg Documented By: DANNY Atorvastatin Calcium (Atorvastatin Calcium 80 Mg Tablet) 80 mg PO DAILY [facility] Last Admin: 08/06/22 08:10 Dose: 80 mg Documented By: DANNY Heparin Sodium (Porcine) 50 (units/ Sodium Chloride 5 ml) 0 units IVFLUSH TID S Last Admin: 08/06/22 08:10 Dose: Not Given Documented By: DANNY Non-Admin Reason: IV Running Dextrose (Dextrose 50 % 25 Gm/50 Ml Syringe) 25 gm IVPUSH Q15M PRN; Protocol PRN Reason: per Hypoglycemia Standing Ord. Digoxin (Digoxin 0.125 Mg Tablet) 0.125 mg PO Q2D@0900 [facility] Last Admin: 08/05/22 08:02 Dose: 0.125 mg Documented By: DANNY Docusate Sodium (Docusate Sodium 100 Mg Capsule) 100 mg PO DAILY PRN PRN Reason: Constipation Last Admin: 08/05/22 21:16 Dose: 100 mg Documented By: ERIN Doxazosin Mesylate (Doxazosin Mesylate 2 Mg Tablet) 4 mg PO BEDTIME [facility]; Protocol Last Admin: 08/05/22 21:01 Dose: 4 mg Documented By: ERIN Duloxetine HCl (Duloxetine Hcl 30 Mg Capsule.) 30 mg PO DAILY [facility] Last Admin: 08/06/22 08:10 Dose: 30 mg Documented By: DANNY Duloxetine HCl (Duloxetine Hcl 60 Mg Capsule.) 60 mg PO BEDTIME [facility] Last Admin: 08/05/22 21:01 Dose: 60 mg Documented By: ERIN Empagliflozin (Empagliflozin 10 Mg Tablet) 10 mg PO DAILY [facility] Last Admin: 08/06/22 08:10 Dose: 10 mg Documented By: DANNY Ferrous Sulfate (Ferrous Sulfate 324 Mg Tablet.) 324 mg PO DAILY [facility] Last Admin: 08/06/22 08:10 Dose: 324 mg Documented By: DANNY Finasteride (Finasteride 5 Mg Tablet) 5 mg PO DAILY [facility] Last Admin: 08/06/22 08:09 Dose: 5 mg Documented By: DANNY Fluticasone Propionate (Fluticasone Propionate Nasal 16 Gm [place]) 1 spray NOSTRIL-B BID [facility] Last Admin: 08/06/22 08:10 Dose: 1 spray Documented By: DANNY Gabapentin (Gabapentin 400 Mg Capsule) 400 mg PO 5XD [facility] Last Admin: 08/06/22 08:10 Dose: 400 mg Documented By: DANNY Glucose (Glucose Gel 15 Gm Gel..Gram.) 15 gm PO Q15M PRN; Protocol PRN Reason: per Hypoglycemia Standing Ord. Hydroxyzine HCl (Hydroxyzine Hcl 25 Mg Tablet) 25 mg PO TID PRN PRN Reason: Anxiety Last Admin: 07/28/22 21:21 Dose: 25 mg Documented By: KYLE Meropenem 1 gm/ Sodium (Chloride) 100 mls @ 200 mls/hr IV Q8H [facility] Last Infusion: 08/06/22 08:57 Dose: 0 mls/hr Documented By: DANNY Insulin Glargine (Insulin Glargine,Hum.Rec.Anlog 100 Unit/Ml 10 Ml Vial) 14 unit SUBCUT BEDTIME [facility] Last Admin: 08/05/22 21:12 Dose: 14 unit Documented By: ERIN Insulin Human Lispro (Insulin Lispro 100 Unit/Ml 3 Ml Vial) 0 unit SUBCUT QIDACHS [facility]; Protocol Last Admin: 08/06/22 08:08 Dose: 2 unit Documented By: DANNY Metoprolol Succinate (Metoprolol Succinate Er 25 Mg Tab.Er.24h) 75 mg PO BID [facility]; Protocol Last Admin: 08/06/22 08:09 Dose: 75 mg Documented By: DANNY Omeprazole (Omeprazole 20 Mg Capsule.) 20 mg PO DAILY@0630 [facility] Last Admin: 08/06/22 06:01 Dose: 20 mg Documented By: ERIN Ondansetron HCl (Ondansetron Hcl 4 Mg/2 Ml Vial) 4 mg IVPUSH Q8H PRN PRN Reason: Nausea and Vomiting Oxycodone HCl (Oxycodone Hcl Immed Release 5 Mg Tablet) 5 mg PO Q6H PRN PRN Reason: moderate pain Last Admin: 08/05/22 18:02 Dose: 5 mg Documented By: DANNY Phenytoin Sodium (Phenytoin Sodium Extended 100 Mg Capsule) 300 mg PO DAILY [facility] Last Admin: 08/06/22 08:09 Dose: 300 mg Documented By: DANNY Phenytoin Sodium (Phenytoin Sodium Extended 100 Mg Capsule) 400 mg PO BEDTIME [facility] Last Admin: 08/05/22 21:01 Dose: 400 mg Documented By: ERIN Quetiapine Fumarate (Quetiapine Fumarate 100 Mg Tablet) 100 mg PO BEDTIME PRN PRN Reason: Insomnia Quetiapine Fumarate (Quetiapine Fumarate 200 Mg Tablet) 200 mg PO BID [facility] Last Admin: 08/06/22 08:09 Dose: 200 mg Documented By: DANNY Sodium Chloride (0.9 % Sodium Chloride Flush 3 Ml Syringe) 3 ml IVFLUSH QSHIFT [facility] Last Admin: 08/06/22 08:09 Dose: 3 ml Documented By: ANANDARTB Trazodone HCl (Trazodone Hcl 100 Mg Tablet) 100 mg PO BEDTIME [facility] Last Admin: 08/05/22 21:02 Dose: 100 mg Documented By: ERIN Labs 08/05/22 05:52 08/06/22 06:54 Labs: Laboratory Results - last 24 hr 08/05/22 08/05/22 08/06/22 15:09 20:14 06:54 Anion Gap 12 Estim Creat Clear Calc 140.9 Estimated GFR > 60 POC Glucose 280 H 216 H Random Glucose 195 H Calcium 7.8 L Magnesium 1.7 08/06/22 07:19 Anion Gap Estim Creat Clear Calc Estimated GFR POC Glucose 184 H Random Glucose Calcium Magnesium Microbiology Microbiology Results: Microbiology 07/31/22 07:15 Blood Culture - Final Blood - Venous No growth after 5 days. 07/31/22 07:15 Blood Culture - Final Blood - Venous No growth after 5 days. Assessment and Plan (1) Bladder outlet obstruction: Status: Acute (2) Physical deconditioning: Status: Acute (3) Acute UTI: Status: Acute Plan 62-year-old male with a PMH significant for?paroxysmal AFib on Eliquis, insulin- dependent diabetes, mood disorder, chronic pain on opioids, and HTN who developed a fever and leukocytosis after being in the ED overflow awaiting placement for rehab.? Pt will be admitted to the hospital for treatment of UTI with IV antibiotics. Sepsis d/t Acute cystitis due to ESBL ecoli AZO for dysurea Id input appreciated Urology input appreciated, started Doxazosin and Finasteride Continue MEropenem/ertapenem for total 5/10 days (end august 11) Midline placed hypotension due to hypovolemia not sepsis resonded to ivf, holding torsemide, monitor acute hypokalemia improved to 3.2 replace and monitor Abdominal pain Better, CT no acute finding continue bowel regimen HTN toprol, caredura Paroxysmal AFib Continue Eliquis, metoprolol, digoxin Insulin-dependent diabetes Hold home meds SSI, Lantus Chronic hypoxic respiratory failure On home O2 4 L, continue Mild intermittent asthma without acute exacerbation Continue home inhalers Seizure disorder Continue phenytoin Chronic iron deficiency anemia Continue iron supplementation Mood disorder Continue quetiapine, trazodone, duloxetine dvt prophylaxis - eliquis full code Need for inatient: Resistant E coli UTI that needs IV Abx pending safe discharge plan Time Spent With Patient Time: Total time managing care of this patient today ____ minutes. Quality Stroke Does the patient have a stroke diagnosis?: No VTE Prior VTE?: No VTE Risk Level:: Medical - moderate - high VTE Device Contraindication: Treatment Not Indicated VTE Drug Contraindication: N/A - Med Ordered
[2022-08-06 11:29] LABS: Glucose, Whole Blood 190 mg/dL (60-115)
[2022-08-06] MEDS: Potassium Chloride ER 20 MEQ TAB.ER.PRT 40 MEQ PO (11:41)
[2022-08-06] MEDS: oxyCODONE HCl Immed Release 5 MG TABLET PO ×2 (11:42→20:14)
[2022-08-06] MEDS: Heparin Sodium,Porcine Flush 50 UNITS, 0.9 % Sodium Chloride Flush 5 ML IVFLUSH ×2 (14:39→20:20)
[2022-08-06 16:32] LABS: Glucose, Whole Blood 217 mg/dL (60-115)
[2022-08-06] MEDS: Docusate Sodium 100 MG CAPSULE PO (17:24)
[2022-08-06] MEDS: hydrOXYzine HCL 25 MG TABLET PO (17:27)
[2022-08-06 20:12] LABS: Glucose, Whole Blood 247 mg/dL (60-115)
[2022-08-06] MEDS: Phenytoin Sodium Extended 100 MG CAPSULE 400 MG PO (20:15)
[2022-08-06] MEDS: traZODone HCL 100 MG TABLET PO (20:15)
[2022-08-06] MEDS: Doxazosin Mesylate 2 MG TABLET 4 MG PO (20:15)
[2022-08-06] MEDS: DULoxetine HCl 60 MG CAPSULE.DR PO (20:15)
[2022-08-06] MEDS: Insulin Glargine,Hum.rec.anlog 100 UNIT/ML 10 ML VIAL 14 UNIT SUBCUT (20:20)
[2022-08-07 03:16] VITALS: BP 110/55; PULSE 95; RESP 16; TEMP 36.7; O2SAT 96
[2022-08-07] MEDS: Gabapentin 400 MG CAPSULE PO ×5 (04:24→20:55)
[2022-08-07] MEDS: Omeprazole 20 MG CAPSULE.DR PO (04:24)
[2022-08-07 06:40] LABS: Hematocrit 32.6 % (42.0-52.0); Hemoglobin 9.4 g/dl (14.0-18.0); Mean Corpuscular HGB Conc 28.8 g/dl (31.0-36.0); Mean Corpuscular Hemoglobin 23.1 pg (27.0-33.0); Mean Corpuscular Volume 80.1 fL (80.0-98.0); Mean Platelet Volume 10.5 fL (9.4-12.4); Platelet Count 311 X10*3/uL (160-400); Red Blood Count 4.07 X10*6/uL (4.60-5.80); Red Cell Distribution Width 19.8 % (11.0-16.0); White Blood Count 6.2 X10*3/uL (4.8-10.8)
[2022-08-07 07:01] LABS: Anion Gap 11 (12-20); Blood Urea Nitrogen 10 mg/dL (9-16); Calcium 8.3 mg/dL (8.4-10.2); Carbon Dioxide 33 mmol/L (22-29); Chloride 98 mmol/L (96-108); Creatinine Clr Calc Pharmacy 165.5; Estimated Glomerular Filt Rate > 60; Glucose Fasting 170 mg/dL (60-99); Potassium 3.5 mmol/L (3.3-5.1); Sodium 138 mmol/L (135-145)
[2022-08-07 07:42] VITALS: BP 118/63; PULSE 65; RESP 18; TEMP 37.2; O2SAT 95
[2022-08-07 07:51] LABS: Glucose, Whole Blood 159 mg/dL (60-115)
[2022-08-07] MEDS: Insulin Lispro 100 UNIT/ML 3 ML VIAL SUBCUT ×4 (08:28→20:54)
[2022-08-07] MEDS: Phenytoin Sodium Extended 100 MG CAPSULE 300 MG PO (08:29)
[2022-08-07] MEDS: oxyCODONE HCl Immed Release 5 MG TABLET PO (08:30)
[2022-08-07] MEDS: Digoxin 0.125 MG TABLET PO (08:30)
[2022-08-07] MEDS: Ferrous Sulfate 324 MG TABLET.DR PO (08:30)
[2022-08-07] MEDS: Atorvastatin Calcium 80 MG TABLET PO (08:30)
[2022-08-07] MEDS: Apixaban 5 MG TABLET PO ×2 (08:30→20:55)
[2022-08-07] MEDS: DULoxetine HCl 30 MG CAPSULE.DR PO (08:31)
[2022-08-07] MEDS: Finasteride 5 MG TABLET PO (08:31)
[2022-08-07] MEDS: Empagliflozin 10 MG TABLET PO (08:31)
[2022-08-07] MEDS: QUEtiapine Fumarate 200 MG TABLET PO ×2 (08:31→20:55)
[2022-08-07] MEDS: Fluticasone Propionate Nasal 16 GM SPRAY 1 SPRAY NOSTRIL-B ×2 (08:42→20:55)
[2022-08-07] MEDS: 0.9 % Sodium Chloride Flush 3 ML SYRINGE IVFLUSH ×3 (08:48→20:53)
[2022-08-07] MEDS: Metoprolol Succinate ER 25 MG TAB.ER.24H 75 MG PO ×2 (09:00→20:55)
[2022-08-07] MEDS: Heparin Sodium,Porcine Flush 50 UNITS, 0.9 % Sodium Chloride Flush 5 ML IVFLUSH ×3 (09:03→20:52)
--- NOTE | 2022-08-07 10:25 | P.PNIM_ITS ---
Subjective Subjective Date of Service: 08/07/22 Interval History: no further hypotensive episodes Physical Exam Vital Signs: Vital Signs: Last Vital Signs Temp 99.0 F 08/07/22 07:42 Pulse 65 08/07/22 07:42 Resp 18 08/07/22 07:42 BP 118/63 08/07/22 07:42 Pulse Ox 95 08/07/22 07:42 O2 Del Method 08/07/22 07:42 O2 Flow Rate 3 08/07/22 07:42 Oxygen Flow Rate 4 07/27/22 21:26 BMI result Body Mass Index 33.1 Const: Other: General: AO X 3, no acute distress Resp: CTA bilateral, no wheezing CVS: S1,S2,RRR GI: +BS, NT, no distention or tenderness Skin: No rash, dry Neuro: motor grossly intact Psych: appropriate affect Objective Data Active Medications Acetaminophen (Acetaminophen 325 Mg Tablet) 975 mg PO BID PRN PRN Reason: Pain Last Admin: 08/06/22 06:01 Dose: 975 mg Documented By: ERIN Acetaminophen (Acetaminophen 325 Mg Tablet) 650 mg PO Q6H PRN PRN Reason: Pain, Mild (Pain Scale 1-3) Last Admin: 08/03/22 17:42 Dose: 650 mg Documented By: TYELR Albuterol Sulfate (Albuterol Sulfate 90 Mcg 8 Gm Inhaler) 2 puff INHALE Q4H PRN PRN Reason: Shortness Of Breath Apixaban (Apixaban 5 Mg Tablet) 5 mg PO BID [facility] Last Admin: 08/07/22 08:30 Dose: 5 mg Documented By: YNES Atorvastatin Calcium (Atorvastatin Calcium 80 Mg Tablet) 80 mg PO DAILY [facility] Last Admin: 08/07/22 08:30 Dose: 80 mg Documented By: YNES Heparin Sodium (Porcine) 50 (units/ Sodium Chloride 5 ml) 0 units IVFLUSH TID [facility] Last Admin: 08/07/22 09:03 Dose: 50 unit Documented By: YNES Dextrose (Dextrose 50 % 25 Gm/50 Ml Syringe) 25 gm IVPUSH Q15M PRN; Protocol PRN Reason: per Hypoglycemia Standing Ord. Digoxin (Digoxin 0.125 Mg Tablet) 0.125 mg PO Q2D@0900 [facility] Last Admin: 08/07/22 08:30 Dose: 0.125 mg Documented By: YNES Docusate Sodium (Docusate Sodium 100 Mg Capsule) 100 mg PO DAILY PRN PRN Reason: Constipation Last Admin: 08/06/22 17:24 Dose: 100 mg Documented By: DANNY Doxazosin Mesylate (Doxazosin Mesylate 2 Mg Tablet) 4 mg PO BEDTIME [facility]; Protocol Last Admin: 08/06/22 20:15 Dose: 4 mg Documented By: ERIN Duloxetine HCl (Duloxetine Hcl 30 Mg Capsule.) 30 mg PO DAILY [facility] Last Admin: 08/07/22 08:31 Dose: 30 mg Documented By: YNES Duloxetine HCl (Duloxetine Hcl 60 Mg Capsule.) 60 mg PO BEDTIME [facility] Last Admin: 08/06/22 20:15 Dose: 60 mg Documented By: ERIN Empagliflozin (Empagliflozin 10 Mg Tablet) 10 mg PO DAILY [facility] Last Admin: 08/07/22 08:31 Dose: 10 mg Documented By: YNES Ferrous Sulfate (Ferrous Sulfate 324 Mg Tablet.) 324 mg PO DAILY [facility] Last Admin: 08/07/22 08:30 Dose: 324 mg Documented By: YNES Finasteride (Finasteride 5 Mg Tablet) 5 mg PO DAILY [facility] Last Admin: 08/07/22 08:31 Dose: 5 mg Documented By: YNES Fluticasone Propionate (Fluticasone Propionate Nasal 16 Gm [place]) 1 spray NOSTRIL-B BID [facility] Last Admin: 08/07/22 08:42 Dose: 1 spray Documented By: YNES Gabapentin (Gabapentin 400 Mg Capsule) 400 mg PO 5XD [facility] Last Admin: 08/07/22 08:29 Dose: 400 mg Documented By: YNES Glucose (Glucose Gel 15 Gm Gel..Gram.) 15 gm PO Q15M PRN; Protocol PRN Reason: per Hypoglycemia Standing Ord. Hydroxyzine HCl (Hydroxyzine Hcl 25 Mg Tablet) 25 mg PO TID PRN PRN Reason: Anxiety Last Admin: 08/06/22 17:27 Dose: 25 mg Documented By: DANNY Meropenem 1 gm/ Sodium (Chloride) 100 mls @ 200 mls/hr IV Q8H [facility] Last Infusion: 08/07/22 09:11 Dose: 0 mls/hr Documented By: YNES Insulin Glargine (Insulin Glargine,Hum.Rec.Anlog 100 Unit/Ml 10 Ml Vial) 14 unit SUBCUT BEDTIME [facility] Last Admin: 08/06/22 20:20 Dose: 14 unit Documented By: ERIN Insulin Human Lispro (Insulin Lispro 100 Unit/Ml 3 Ml Vial) 0 unit SUBCUT QIDA CHS [facility]; Protocol Last Admin: 08/07/22 08:28 Dose: 2 unit Documented By: YNES Metoprolol Succinate (Metoprolol Succinate Er 25 Mg Tab.Er.24h) 75 mg PO BID [facility]; Protocol Last Admin: 08/07/22 09:00 Dose: 75 mg Documented By: YNES Omeprazole (Omeprazole 20 Mg Capsule.Dr) 20 mg PO DAILY@0630 [facility] Last Admin: 08/07/22 04:24 Dose: 20 mg Documented By: ERIN Ondansetron HCl (Ondansetron Hcl 4 Mg/2 Ml Vial) 4 mg IVPUSH Q8H PRN PRN Reason: Nausea and Vomiting Oxycodone HCl (Oxycodone Hcl Immed Release 5 Mg Tablet) 5 mg PO Q6H PRN PRN Reason: moderate pain Last Admin: 08/07/22 08:30 Dose: 5 mg Documented By: YNES Phenytoin Sodium (Phenytoin Sodium Extended 100 Mg Capsule) 300 mg PO DAILY [facility] Last Admin: 08/07/22 08:29 Dose: 300 mg Documented By: YNES Phenytoin Sodium (Phenytoin Sodium Extended 100 Mg Capsule) 400 mg PO BEDTIME [facility] Last Admin: 08/06/22 20:15 Dose: 400 mg Documented By: ERIN Quetiapine Fumarate (Quetiapine Fumarate 100 Mg Tablet) 100 mg PO BEDTIME PRN PRN Reason: Insomnia Quetiapine Fumarate (Quetiapine Fumarate 200 Mg Tablet) 200 mg PO BID [facility] Last Admin: 08/07/22 08:31 Dose: 200 mg Documented By: YNES Sodium Chloride (0.9 % Sodium Chloride Flush 3 Ml Syringe) 3 ml IVFLUSH QSHIFT [facility] Last Admin: 08/07/22 08:48 Dose: 3 ml Documented By: YNES Trazodone HCl (Trazodone Hcl 100 Mg Tablet) 100 mg PO BEDTIME [facility] Last Admin: 08/06/22 20:15 Dose: 100 mg Documented By: ERIN Labs 08/07/22 06:29 08/07/22 06:29 Labs: Laboratory Results - last 24 hr 08/06/22 08/06/22 08/06/22 11:20 16:28 20:08 MCV MCH MCHC RDW Plt Count MPV Absolute Nucleated RBC Nucleated RBC % (auto) Anion Gap Estim Creat Clear Calc Estimated GFR POC Glucose 190 H 217 H 247 H Fasting Glucose Calcium 08/07/22 08/07/22 08/07/22 06:29 06:29 07:43 MCV 80.1 MCH 23.1 L MCHC 28.8 L RDW 19.8 H Plt Count 311 MPV 10.5 Absolute Nucleated RBC 0.000 Nucleated RBC % (auto) 0.0 Anion Gap 11 L Estim Creat Clear Calc 165.5 Estimated GFR > 60 POC Glucose 159 H Fasting Glucose 170 H Calcium 8.3 L D Assessment and Plan (1) Bladder outlet obstruction: Status: Acute (2) Physical deconditioning: Status: Acute (3) Acute UTI: Status: Acute Plan 62-year-old male with a PMH significant for?paroxysmal AFib on Eliquis, insulin- dependent diabetes, mood disorder, chronic pain on opioids, and HTN who developed a fever and leukocytosis after being in the ED overflow awaiting placement for rehab.? Pt will be admitted to the hospital for treatment of UTI with IV antibiotics. Sepsis d/t Acute cystitis due to ESBL ecoli AZO for dysurea Id input appreciated Urology input appreciated, started Doxazosin and Finasteride Continue MEropenem/ertapenem for total 6/10 days (end august 11) Midline placed hypotension due to hypovolemia not sepsis resonded to ivf, holding torsemide, monitor, improving acute hypokalemia improved to 3.5 replace and monitor Abdominal pain Better, CT no acute finding continue bowel regimen HTN toprol, caredura Paroxysmal AFib Continue Eliquis, metoprolol, digoxin Insulin-dependent diabetes Hold home meds SSI, Lantus Chronic hypoxic respiratory failure On home O2 4 L, continue Mild intermittent asthma without acute exacerbation Continue home inhalers Seizure disorder Continue phenytoin Chronic iron deficiency anemia Continue iron supplementation Mood disorder Continue quetiapine, trazodone, duloxetine dvt prophylaxis - eliquis full code Need for inatient: Resistant E coli UTI that needs IV Abx pending safe discharge plan Time Spent With Patient Time: Total time managing care of this patient today ____ minutes. Quality Stroke Does the patient have a stroke diagnosis?: No VTE Prior VTE?: No VTE Risk Level:: Medical - moderate - high VTE Device Contraindication: Treatment Not Indicated VTE Drug Contraindication: N/A - Med Ordered
[2022-08-07 11:39] VITALS: BP 107/59; PULSE 84; RESP 18; TEMP 36.6; O2SAT 95
[2022-08-07 11:46] LABS: Glucose, Whole Blood 209 mg/dL (60-115)
[2022-08-07] MEDS: Potassium Chloride ER 20 MEQ TAB.ER.PRT 40 MEQ PO (12:48)
[2022-08-07 16:00] VITALS: BP 125/58; PULSE 94; RESP 14; TEMP 36.1; O2SAT 97
[2022-08-07 16:58] LABS: Glucose, Whole Blood 200 mg/dL (60-115)
[2022-08-07 20:00] VITALS: BP 111/70; PULSE 74; RESP 19; TEMP 36.6; O2SAT 96
[2022-08-07 20:10] LABS: Glucose, Whole Blood 177 mg/dL (60-115)
[2022-08-07] MEDS: Insulin Glargine,Hum.rec.anlog 100 UNIT/ML 10 ML VIAL 14 UNIT SUBCUT (20:54)
[2022-08-07] MEDS: Phenytoin Sodium Extended 100 MG CAPSULE 400 MG PO (20:54)
[2022-08-07] MEDS: DULoxetine HCl 60 MG CAPSULE.DR PO (20:55)
[2022-08-07] MEDS: traZODone HCL 100 MG TABLET PO (20:55)
[2022-08-07] MEDS: Doxazosin Mesylate 2 MG TABLET 4 MG PO (20:55)
[2022-08-08] VITALS (8 sets, daily range): BP systolic 100–146; BP diastolic 57–74; PULSE 73–91; RESP 15–20; TEMP 36.1–36.7; O2SAT 92–98
[2022-08-08] MEDS: oxyCODONE HCl Immed Release 5 MG TABLET PO ×3 (00:17→23:15)
[2022-08-08] MEDS: LORazepam 1 MG TABLET 2 MG PO ×2 (03:38→08:20)
[2022-08-08] MEDS: Omeprazole 20 MG CAPSULE.DR PO (06:31)
[2022-08-08] MEDS: Gabapentin 400 MG CAPSULE PO ×5 (06:31→23:16)
[2022-08-08 07:04] LABS: Glucose, Whole Blood 316 mg/dL (60-115)
[2022-08-08] MEDS: Phenytoin Sodium Extended 100 MG CAPSULE 300 MG PO (08:17)
[2022-08-08] MEDS: Metoprolol Succinate ER 25 MG TAB.ER.24H 75 MG PO ×2 (08:18→23:12)
[2022-08-08] MEDS: Empagliflozin 10 MG TABLET PO (08:19)
[2022-08-08] MEDS: Atorvastatin Calcium 80 MG TABLET PO (08:19)
[2022-08-08] MEDS: Apixaban 5 MG TABLET PO ×2 (08:20→23:16)
[2022-08-08] MEDS: Magnesium Oxide 400 MG TABLET PO (08:20)
[2022-08-08] MEDS: QUEtiapine Fumarate 200 MG TABLET PO ×2 (08:20→23:17)
[2022-08-08] MEDS: Ferrous Sulfate 324 MG TABLET.DR PO (08:20)
[2022-08-08] MEDS: DULoxetine HCl 30 MG CAPSULE.DR PO (08:20)
[2022-08-08] MEDS: Finasteride 5 MG TABLET PO (08:21)
[2022-08-08] MEDS: Insulin Lispro 100 UNIT/ML 3 ML VIAL SUBCUT ×3 (08:21→16:59)
[2022-08-08] MEDS: Heparin Sodium,Porcine Flush 50 UNITS, 0.9 % Sodium Chloride Flush 5 ML IVFLUSH ×3 (08:21→23:27)
[2022-08-08] MEDS: Fluticasone Propionate Nasal 16 GM SPRAY 1 SPRAY NOSTRIL-B ×2 (08:23→23:18)
[2022-08-08] MEDS: 0.9 % Sodium Chloride Flush 3 ML SYRINGE IVFLUSH ×2 (08:24→15:48)
--- NOTE | 2022-08-08 09:04 | HO.PM.IMPN ---
Subjective Subjective Date of Service: 08/08/22 Interval History: no further hypotensive episodes Physical Exam Vital Signs: Vital Signs: Last Vital Signs Temp 98.0 F 08/08/22 07:46 Pulse 73 08/08/22 07:46 Resp 18 08/08/22 07:46 BP 102/57 L 08/08/22 07:49 Pulse Ox 96 08/08/22 07:46 O2 Del Method 08/08/22 03:12 O2 Flow Rate 2 08/08/22 03:12 Oxygen Flow Rate 4 07/27/22 21:26 BMI result Body Mass Index 33.1 Const: Other: General: AO X 3, no acute distress Resp: CTA bilateral, no wheezing CVS: S1,S2,RRR GI: +BS, NT, no distention or tenderness Skin: No rash, dry Neuro: motor grossly intact Psych: appropriate affect Objective Data Active Medications Acetaminophen (Acetaminophen 325 Mg Tablet) 975 mg PO BID PRN PRN Reason: Pain Last Admin: 08/06/22 06:01 Dose: 975 mg Documented By: ERIN Acetaminophen (Acetaminophen 325 Mg Tablet) 650 mg PO Q6H PRN PRN Reason: Pain, Mild (Pain Scale 1-3) Last Admin: 08/03/22 17:42 Dose: 650 mg Documented By: TYLER Albuterol Sulfate (Albuterol Sulfate 90 Mcg 8 Gm Inhaler) 2 puff INHALE Q4H PRN PRN Reason: Shortness Of Breath Apixaban (Apixaban 5 Mg Tablet) 5 mg PO BID [facility] Last Admin: 08/08/22 08:20 Dose: 5 mg Documented By: YNES Atorvastatin Calcium (Atorvastatin Calcium 80 Mg Tablet) 80 mg PO DAILY [facility] Last Admin: 08/08/22 08:19 Dose: 80 mg Documented By: YNES Heparin Sodium (Porcine) 50 (units/ Sodium Chloride 5 ml) 0 units IVFLUSH TID [facility] Last Admin: 08/08/22 08:21 Dose: 50 unit Documented By: YNES Dextrose (Dextrose 50 % 25 Gm/50 Ml Syringe) 25 gm IVPUSH Q15M PRN; Protocol PRN Reason: per Hypoglycemia Standing Ord. Digoxin (Digoxin 0.125 Mg Tablet) 0.125 mg PO Q2D@0900 [facility] Last Admin: 08/07/22 08:30 Dose: 0.125 mg Documented By: YNES Docusate Sodium (Docusate Sodium 100 Mg Capsule) 100 mg PO DAILY PRN PRN Reason: Constipation Last Admin: 08/06/22 17:24 Dose: 100 mg Documented By: DANNY Doxazosin Mesylate (Doxazosin Mesylate 2 Mg Tablet) 4 mg PO BEDTIME [facility]; Protocol Last Admin: 08/07/22 20:55 Dose: 4 mg Documented By: AMOS Duloxetine HCl (Duloxetine Hcl 30 Mg Capsule.) 30 mg PO DAILY [facility] Last Admin: 08/08/22 08:20 Dose: 30 mg Documented By: YNES Duloxetine HCl (Duloxetine Hcl 60 Mg Capsule.) 60 mg PO BEDTIME [facility] Last Admin: 08/07/22 20:55 Dose: 60 mg Documented By: AMOS Empagliflozin (Empagliflozin 10 Mg Tablet) 10 mg PO DAILY [facility] Last Admin: 08/08/22 08:19 Dose: 10 mg Documented By: YNES Ferrous Sulfate (Ferrous Sulfate 324 Mg Tablet.) 324 mg PO DAILY [facility] Last Admin: 08/08/22 08:20 Dose: 324 mg Documented By: YNES Finasteride (Finasteride 5 Mg Tablet) 5 mg PO DAILY [facility] Last Admin: 08/08/22 08:21 Dose: 5 mg Documented By: YNES Fluticasone Propionate (Fluticasone Propionate Nasal 16 Gm [place]) 1 spray NOSTRIL-B BID [facility] Last Admin: 08/08/22 08:23 Dose: 1 spray Documented By: YNES Gabapentin (Gabapentin 400 Mg Capsule) 400 mg PO 5XD [facility] Last Admin: 08/08/22 08:17 Dose: 400 mg Documented By: YNES Glucose (Glucose Gel 15 Gm Gel..Gram.) 15 gm PO Q15M PRN; Protocol PRN Reason: per Hypoglycemia Standing Ord. Hydroxyzine HCl (Hydroxyzine Hcl 25 Mg Tablet) 25 mg PO TID PRN PRN Reason: Anxiety Last Admin: 08/06/22 17:27 Dose: 25 mg Documented By: DANNY Meropenem 1 gm/ Sodium (Chloride) 100 mls @ 200 mls/hr IV Q8H [facility] Last Admin: 08/08/22 08:22 Dose: 200 mls/hr Documented By: YNES Insulin Glargine (Insulin Glargine,Hum.Rec.Anlog 100 Unit/Ml 10 Ml Vial) 14 unit SUBCUT BEDTIME [facility] Last Admin: 08/07/22 20:54 Dose: 14 unit Documented By: AMOS Insulin Human Lispro (Insulin Lispro 100 Unit/Ml 3 Ml Vial) 0 unit SUBCUT QIDACHS [facility]; Protocol Last Admin: 08/08/22 08:21 Dose: 8 unit Documented By: YNES Lorazepam (Lorazepam 1 Mg Tablet) 2 mg PO TID PRN PRN Reason: anxiety Last Admin: 08/08/22 08:20 Dose: 2 mg Documented By: YNES Magnesium Oxide (Magnesium Oxide 400 Mg Tablet) 400 mg PO DAILY [facility] Last Admin: 08/08/22 08:20 Dose: 400 mg Documented By: YNES Metoprolol Succinate (Metoprolol Succinate Er 25 Mg Tab.Er.24h) 75 mg PO BID [facility]; Protocol Last Admin: 08/08/22 08:18 Dose: 75 mg Documented By: YNES Omeprazole (Omeprazole 20 Mg Capsule.Dr) 20 mg PO DAILY@0630 [facility] Last Admin: 08/08/22 06:31 Dose: 20 mg Documented By: GINI Ondansetron HCl (Ondansetron Hcl 4 Mg/2 Ml Vial) 4 mg IVPUSH Q8H PRN PRN Reason: Nausea and Vomiting Oxycodone HCl (Oxycodone Hcl Immed Release 5 Mg Tablet) 5 mg PO Q6H PRN PRN Reason: moderate pain Last Admin: 08/08/22 00:17 Dose: 5 mg Documented By: GINI Phenytoin Sodium (Phenytoin Sodium Extended 100 Mg Capsule) 300 mg PO DAILY [facility] Last Admin: 08/08/22 08:17 Dose: 300 mg Documented By: YNES Phenytoin Sodium (Phenytoin Sodium Extended 100 Mg Capsule) 400 mg PO BEDTIME [facility] Last Admin: 08/07/22 20:54 Dose: 400 mg Documented By: AMOS Quetiapine Fumarate (Quetiapine Fumarate 100 Mg Tablet) 100 mg PO BEDTIME PRN PRN Reason: Insomnia Quetiapine Fumarate (Quetiapine Fumarate 200 Mg Tablet) 200 mg PO BID [facility] Last Admin: 08/08/22 08:20 Dose: 200 mg Documented By: YNES Sodium Chloride (0.9 % Sodium Chloride Flush 3 Ml Syringe) 3 ml IVFLUSH QSHIFT [facility] Last Admin: 08/08/22 08:24 Dose: 3 ml Documented By: YNES Trazodone HCl (Trazodone Hcl 100 Mg Tablet) 100 mg PO BEDTIME [facility] Last Admin: 08/07/22 20:55 Dose: 100 mg Documented By: MAOS Labs 08/07/22 06:29 08/07/22 06:29 Labs: Laboratory Results - last 24 hr 08/07/22 08/07/22 08/07/22 11:38 16:53 19:32 POC Glucose 209 H 200 H 177 H 08/08/22 06:57 POC Glucose 316 H Assessment and Plan (1) Bladder outlet obstruction: Status: Acute (2) Physical deconditioning: Status: Acute (3) Acute UTI: Status: Acute Plan 62-year-old male with a PMH significant for?paroxysmal AFib on Eliquis, insulin-dependent diabetes, mood disorder, chronic pain on opioids, and HTN who developed a fever and leukocytosis after being in the ED overflow awaiting placement for rehab.? Pt will be admitted to the hospital for treatment of UTI with IV antibiotics. Sepsis d/t Acute cystitis due to ESBL ecoli AZO for dysurea Id input appreciated Urology input appreciated, started Doxazosin and Finasteride Continue MEropenem/ertapenem for total 6/10 days (end august 11) Midline placed hypotension due to hypovolemia not sepsis resonded to ivf, holding torsemide, monitor, improving acute hypokalemia improved to 3.5 Abdominal pain Better, CT no acute finding continue bowel regimen HTN toprol, caredura Paroxysmal AFib Continue Eliquis, metoprolol, digoxin Insulin-dependent diabetes Hold home meds SSI, Lantus Chronic hypoxic respiratory failure On home O2 4 L, continue Mild intermittent asthma without acute exacerbation Continue home inhalers Seizure disorder Continue phenytoin Chronic iron deficiency anemia Continue iron supplementation Mood disorder Continue quetiapine, trazodone, duloxetine dvt prophylaxis - eliquis full code Need for inatient: Resistant E coli UTI that needs IV Abx pending safe discharge plan Time Spent With Patient Time: Total time managing care of this patient today ____ minutes. Quality Stroke Does the patient have a stroke diagnosis?: No VTE Prior VTE?: No VTE Risk Level:: Medical - moderate - high VTE Device Contraindication: Treatment Not Indicated VTE Drug Contraindication: N/A - Med Ordered
[2022-08-08 11:11] LABS: Glucose, Whole Blood 166 mg/dL (60-115)
[2022-08-08 16:29] LABS: Glucose, Whole Blood 209 mg/dL (60-115)
[2022-08-08 20:31] LABS: Glucose, Whole Blood 148 mg/dL (60-115)
[2022-08-08] MEDS: Doxazosin Mesylate 2 MG TABLET 4 MG PO (23:11)
[2022-08-08] MEDS: traZODone HCL 100 MG TABLET PO (23:15)
[2022-08-08] MEDS: Phenytoin Sodium Extended 100 MG CAPSULE 400 MG PO (23:16)
[2022-08-08] MEDS: DULoxetine HCl 60 MG CAPSULE.DR PO (23:17)
[2022-08-08] MEDS: Insulin Glargine,Hum.rec.anlog 100 UNIT/ML 10 ML VIAL 14 UNIT SUBCUT (23:17)
[2022-08-09] VITALS (8 sets, daily range): BP systolic 90–132; BP diastolic 52–66; PULSE 71–90; RESP 16–20; TEMP 36.1–37.2; O2SAT 94–98
[2022-08-09] MEDS: LORazepam 1 MG TABLET 2 MG PO ×2 (02:31→17:33)
[2022-08-09] MEDS: Gabapentin 400 MG CAPSULE PO ×4 (06:19→16:41)
[2022-08-09] MEDS: Omeprazole 20 MG CAPSULE.DR PO (06:19)
[2022-08-09 07:45] LABS: Glucose, Whole Blood 169 mg/dL (60-115)
[2022-08-09] MEDS: 0.9 % Sodium Chloride Flush 3 ML SYRINGE IVFLUSH ×2 (08:58→17:30)
[2022-08-09] MEDS: QUEtiapine Fumarate 200 MG TABLET PO (08:59)
[2022-08-09] MEDS: Metoprolol Succinate ER 25 MG TAB.ER.24H 75 MG PO (08:59)
[2022-08-09] MEDS: Finasteride 5 MG TABLET PO (08:59)
[2022-08-09] MEDS: DULoxetine HCl 30 MG CAPSULE.DR PO (08:59)
[2022-08-09] MEDS: Phenytoin Sodium Extended 100 MG CAPSULE 300 MG PO (08:59)
[2022-08-09] MEDS: Digoxin 0.125 MG TABLET PO (09:00)
[2022-08-09] MEDS: Empagliflozin 10 MG TABLET PO (09:00)
[2022-08-09] MEDS: Ferrous Sulfate 324 MG TABLET.DR PO (09:00)
[2022-08-09] MEDS: Insulin Lispro 100 UNIT/ML 3 ML VIAL SUBCUT ×3 (09:00→16:40)
[2022-08-09] MEDS: Atorvastatin Calcium 80 MG TABLET PO (09:00)
[2022-08-09] MEDS: Apixaban 5 MG TABLET PO ×2 (09:00→21:45)
--- NOTE | 2022-08-09 09:01 | HO.PM.IMPN ---
Subjective Subjective Date of Service: 08/09/22 Interval History: no further hypotensive episodes Physical Exam Vital Signs: Vital Signs: Last Vital Signs Temp 98.1 F 08/09/22 04:00 Pulse 82 08/09/22 07:37 Resp 20 08/09/22 07:37 BP 104/66 08/09/22 07:37 Pulse Ox 94 08/09/22 07:37 O2 Del Method 08/09/22 07:37 O2 Flow Rate 3 08/09/22 07:37 Oxygen Flow Rate 4 07/27/22 21:26 BMI result Body Mass Index 33.1 Const: Other: General: AO X 3, no acute distress Resp: CTA bilateral, no wheezing CVS: S1,S2,RRR GI: +BS, NT, no distention or tenderness Skin: No rash, dry Neuro: motor grossly intact Psych: appropriate affect Objective Data Active Medications Acetaminophen (Acetaminophen 325 Mg Tablet) 975 mg PO BID PRN PRN Reason: Pain Last Admin: 08/06/22 06:01 Dose: 975 mg Documented By: ERIN Acetaminophen (Acetaminophen 325 Mg Tablet) 650 mg PO Q6H PRN PRN Reason: Pain, Mild (Pain Scale 1-3) Last Admin: 08/03/22 17:42 Dose: 650 mg Documented By: TYLER Albuterol Sulfate (Albuterol Sulfate 90 Mcg 8 Gm Inhaler) 2 puff INHALE Q4H PRN PRN Reason: Shortness Of Breath Apixaban (Apixaban 5 Mg Tablet) 5 mg PO BID [facility] Last Admin: 08/08/22 23:16 Dose: 5 mg Documented By: BIRGIT Atorvastatin Calcium (Atorvastatin Calcium 80 Mg Tablet) 80 mg PO DAILY [facility] Last Admin: 08/08/22 08:19 Dose: 80 mg Documented By: YNES Heparin Sodium (Porcine) 50 (units/ Sodium Chloride 5 ml) 0 units IVFLUSH TID [facility] Last Admin: 08/08/22 23:27 Dose: 50 unit Documented By: BIRGIT Dextrose (Dextrose 50 % 25 Gm/50 Ml Syringe) 25 gm IVPUSH Q15M PRN; Protocol PRN Reason: per Hypoglycemia Standing Ord. Digoxin (Digoxin 0.125 Mg Tablet) 0.125 mg PO Q2D@0900 [facility] Last Admin: 08/07/22 08:30 Dose: 0.125 mg Documented By: YNES Docusate Sodium (Docusate Sodium 100 Mg Capsule) 100 mg PO DAILY PRN PRN Reason: Constipation Last Admin: 08/06/22 17:24 Dose: 100 mg Documented By: DANNY Doxazosin Mesylate (Doxazosin Mesylate 2 Mg Tablet) 4 mg PO BEDTIME [facility]; Protocol Last Admin: 08/08/22 23:11 Dose: 4 mg Documented By: BIRGIT Duloxetine HCl (Duloxetine Hcl 30 Mg Capsule.) 30 mg PO DAILY [facility] Last Admin: 08/08/22 08:20 Dose: 30 mg Documented By: YNES Duloxetine HCl (Duloxetine Hcl 60 Mg Capsule.) 60 mg PO BEDTIME [facility] Last Admin: 08/08/22 23:17 Dose: 60 mg Documented By: BIRGIT Empagliflozin (Empagliflozin 10 Mg Tablet) 10 mg PO DAILY [facility] Last Admin: 08/08/22 08:19 Dose: 10 mg Documented By: YNES Ferrous Sulfate (Ferrous Sulfate 324 Mg Tablet.) 324 mg PO DAILY [facility] Last Admin: 08/08/22 08:20 Dose: 324 mg Documented By: YNES Finasteride (Finasteride 5 Mg Tablet) 5 mg PO DAILY [facility] Last Admin: 08/08/22 08:21 Dose: 5 mg Documented By: YNES Fluticasone Propionate (Fluticasone Propionate Nasal 16 Gm [place]) 1 spray NOSTRIL-B BID [facility] Last Admin: 08/08/22 23:18 Dose: 1 spray Documented By: BIRGIT Gabapentin (Gabapentin 400 Mg Capsule) 400 mg PO 5XD [facility] Last Admin: 08/09/22 06:19 Dose: 400 mg Documented By: JERONIMO Glucose (Glucose Gel 15 Gm Gel..Gram.) 15 gm PO Q15M PRN; Protocol PRN Reason: per Hypoglycemia Standing Ord. Hydroxyzine HCl (Hydroxyzine Hcl 25 Mg Tablet) 25 mg PO TID PRN PRN Reason: Anxiety Last Admin: 08/06/22 17:27 Dose: 25 mg Documented By: DANNY Meropenem 1 gm/ Sodium (Chloride) 100 mls @ 200 mls/hr IV Q8H [facility] Last Infusion: 08/09/22 02:02 Dose: 0 mls/hr Documented By: BIRGIT Insulin Glargine (Insulin Glargine,Hum.Rec.Anlog 100 Unit/Ml 10 Ml Vial) 14 unit SUBCUT BEDTIME [facility] Last Admin: 08/08/22 23:17 Dose: 14 unit Documented By: BIRGIT Insulin Human Lispro (Insulin Lispro 100 Unit/Ml 3 Ml Vial) 0 unit SUBCUT QIDACHS [facility]; Protocol Last Admin: 08/08/22 22:51 Dose: Not Given Documented By: BIRGIT Non-Admin Reason: No Insulin Coverage Lorazepam (Lorazepam 1 Mg Tablet) 2 mg PO TID PRN PRN Reason: anxiety Last Admin: 08/09/22 02:31 Dose: 2 mg Documented By: JESSICA-YUMIKO Magnesium Oxide (Magnesium Oxide 400 Mg Tablet) 400 mg PO DAILY [facility] Last Admin: 08/08/22 08:20 Dose: 400 mg Documented By: YNES Metoprolol Succinate (Metoprolol Succinate Er 25 Mg Tab.Er.24h) 75 mg PO BID [facility]; Protocol Last Admin: 08/08/22 23:12 Dose: 75 mg Documented By: BIRGIT Omeprazole (Omeprazole 20 Mg Capsule.Dr) 20 mg PO DAILY@0630 [facility] Last Admin: 08/09/22 06:19 Dose: 20 mg Documented By: JERONIMO Ondansetron HCl (Ondansetron Hcl 4 Mg/2 Ml Vial) 4 mg IVPUSH Q8H PRN PRN Reason: Nausea and Vomiting Oxycodone HCl (Oxycodone Hcl Immed Release 5 Mg Tablet) 5 mg PO Q6H PRN PRN Reason: moderate pain Last Admin: 08/08/22 23:15 Dose: 5 mg Documented By: BIRGIT Phenytoin Sodium (Phenytoin Sodium Extended 100 Mg Capsule) 300 mg PO DAILY [facility] Last Admin: 08/08/22 08:17 Dose: 300 mg Documented By: YNES Phenytoin Sodium (Phenytoin Sodium Extended 100 Mg Capsule) 400 mg PO BEDTIME [facility] Last Admin: 08/08/22 23:16 Dose: 400 mg Documented By: BIRGIT Quetiapine Fumarate (Quetiapine Fumarate 100 Mg Tablet) 100 mg PO BEDTIME PRN PRN Reason: Insomnia Quetiapine Fumarate (Quetiapine Fumarate 200 Mg Tablet) 200 mg PO BID [facility] Last Admin: 08/08/22 23:17 Dose: 200 mg Documented By: BIRGIT Sodium Chloride (0.9 % Sodium Chloride Flush 3 Ml Syringe) 3 ml IVFLUSH QSHIFT [facility] Last Admin: 08/09/22 00:14 Dose: Not Given Documented By: BIRGIT Non-Admin Reason: Previously Administered Trazodone HCl (Trazodone Hcl 100 Mg Tablet) 100 mg PO BEDTIME [facility] Last Admin: 08/08/22 23:15 Dose: 100 mg Documented By: BIRGIT Labs 08/07/22 06:29 08/07/22 06:29 Labs: Laboratory Results - last 24 hr 08/08/22 08/08/22 08/08/22 11:02 16:21 20:27 POC Glucose 166 H 209 H 148 H 08/09/22 07:35 POC Glucose 169 H Assessment and Plan (1) Bladder outlet obstruction: Status: Acute (2) Physical deconditioning: Status: Acute (3) Acute UTI: Status: Acute Plan 62-year-old male with a PMH significant for?paroxysmal AFib on Eliquis, insulin-dependent diabetes, mood disorder, chronic pain on opioids, and HTN who developed a fever and leukocytosis after being in the ED overflow awaiting placement for rehab.? Pt will be admitted to the hospital for treatment of UTI with IV antibiotics. Sepsis d/t Acute cystitis due to ESBL ecoli AZO for dysurea Id input appreciated Urology input appreciated, started Doxazosin and Finasteride Continue MEropenem/ertapenem for total 6/10 days (end august 11) Midline placed hypotension due to hypovolemia not sepsis resonded to ivf, holding torsemide, monitor, improving acute hypokalemia improved to 3.5 Abdominal pain Better, CT no acute finding continue bowel regimen HTN toprol, caredura Paroxysmal AFib Continue Eliquis, metoprolol, digoxin Insulin-dependent diabetes Hold home meds SSI, Lantus Chronic hypoxic respiratory failure On home O2 4 L, continue Mild intermittent asthma without acute exacerbation Continue home inhalers Seizure disorder Continue phenytoin Chronic iron deficiency anemia Continue iron supplementation Mood disorder Continue quetiapine, trazodone, duloxetine dvt prophylaxis - eliquis full code Need for inatient: Resistant E coli UTI that needs IV Abx pending safe discharge plan Time Spent With Patient Time: Total time managing care of this patient today ____ minutes. Quality Stroke Does the patient have a stroke diagnosis?: No VTE Prior VTE?: No VTE Risk Level:: Medical - moderate - high VTE Device Contraindication: Treatment Not Indicated VTE Drug Contraindication: N/A - Med Ordered
[2022-08-09] MEDS: Acetaminophen 325 MG TABLET 975 MG PO (09:11)
[2022-08-09] MEDS: oxyCODONE HCl Immed Release 5 MG TABLET PO ×2 (09:11→16:41)
--- NOTE | 2022-08-09 10:14 | MHC.CM.PN ---
Per ROUNDS discussion, Patient is medically cleared for dc. PT is recommending STR and SNF referrals have been updated. There are no SNF bed offers as of yet and CM will continue to follow.
[2022-08-09] MEDS: Heparin Sodium,Porcine Flush 50 UNITS, 0.9 % Sodium Chloride Flush 5 ML IVFLUSH ×3 (10:44→22:03)
[2022-08-09] MEDS: Magnesium Oxide 400 MG TABLET PO (10:48)
[2022-08-09] MEDS: Fluticasone Propionate Nasal 16 GM SPRAY 1 SPRAY NOSTRIL-B (10:49)
[2022-08-09 11:09] LABS: Glucose, Whole Blood 178 mg/dL (60-115)
[2022-08-09 16:18] LABS: Glucose, Whole Blood 187 mg/dL (60-115)
[2022-08-09] MEDS: Acetaminophen 325 MG TABLET 650 MG PO (16:40)
[2022-08-09 19:50] LABS: Glucose, Whole Blood 146 mg/dL (60-115)
--- NOTE | 2022-08-09 21:27 | PC.NURSE ---
Pt sleepy this evening but easily arousable and alert X 4. Pt is able to tell me why he is here and is currently on his IPAD. He states he is just sleepy and tired tonight. He is hypotensive BP 90/52, HR 82, 98% on 3L n/c. He is due for cymbalta, cardura, gabapentin, lopressor, seroquel and trazadone. Also his blood sugar was 146. he has 14 units of lantus due and did have some snacks. notified,and Meds were held for tonight. Pt will only be receiving eliquis and dilantin tonight. Pt encouraged to drink fluids.
[2022-08-09] MEDS: Phenytoin Sodium Extended 100 MG CAPSULE 400 MG PO (21:46)
[2022-08-10] MEDS: 0.9 % Sodium Chloride Flush 3 ML SYRINGE IVFLUSH ×3 (01:19→17:17)
[2022-08-10 04:00] VITALS: BP 119/66; PULSE 101; RESP 20; TEMP 37.1; O2SAT 95
[2022-08-10] MEDS: oxyCODONE HCl Immed Release 5 MG TABLET PO ×3 (05:37→21:01)
[2022-08-10] MEDS: Omeprazole 20 MG CAPSULE.DR PO (05:38)
[2022-08-10] MEDS: Gabapentin 400 MG CAPSULE PO ×5 (05:38→21:01)
[2022-08-10 07:37] LABS: Glucose, Whole Blood 151 mg/dL (60-115)
[2022-08-10 07:38] VITALS: BP 124/68; PULSE 92; RESP 20; TEMP 36.1; O2SAT 95
[2022-08-10] MEDS: QUEtiapine Fumarate 200 MG TABLET PO ×2 (08:51→21:02)
[2022-08-10] MEDS: Heparin Sodium,Porcine Flush 50 UNITS, 0.9 % Sodium Chloride Flush 5 ML IVFLUSH ×3 (08:51→21:10)
[2022-08-10] MEDS: DULoxetine HCl 30 MG CAPSULE.DR PO (08:51)
[2022-08-10] MEDS: Atorvastatin Calcium 80 MG TABLET PO (08:52)
[2022-08-10] MEDS: Metoprolol Succinate ER 25 MG TAB.ER.24H 75 MG PO ×2 (08:52→21:02)
[2022-08-10] MEDS: Insulin Lispro 100 UNIT/ML 3 ML VIAL SUBCUT ×4 (08:52→20:59)
[2022-08-10] MEDS: Finasteride 5 MG TABLET PO (08:52)
[2022-08-10] MEDS: Empagliflozin 10 MG TABLET PO (08:54)
[2022-08-10] MEDS: Ferrous Sulfate 324 MG TABLET.DR PO (08:54)
[2022-08-10] MEDS: Magnesium Oxide 400 MG TABLET PO (08:55)
[2022-08-10] MEDS: Fluticasone Propionate Nasal 16 GM SPRAY 1 SPRAY NOSTRIL-B (08:55)
[2022-08-10] MEDS: Apixaban 5 MG TABLET PO ×2 (09:02→21:01)
[2022-08-10] MEDS: Phenytoin Sodium Extended 100 MG CAPSULE 300 MG PO (09:03)
[2022-08-10] MEDS: Acetaminophen 325 MG TABLET 650 MG PO (09:03)
[2022-08-10] MEDS: LORazepam 1 MG TABLET 2 MG PO ×2 (09:04→21:02)
--- NOTE | 2022-08-10 10:18 | MHC.CM.PN ---
Per ROUNDS discussion, PT is recommending STR but Patient wants to go home. Tentative plan now is home tomorrow after his last dose of IV ABT. CM will follow.
[2022-08-10 10:42] VITALS: BP 126/63; PULSE 99; RESP 20; TEMP 36.8; O2SAT 96
[2022-08-10 11:41] LABS: Glucose, Whole Blood 169 mg/dL (60-115)
--- NOTE | 2022-08-10 13:01 | MHC.CM.PN ---
BOLIVAR returned a call to [facility]/[place] @ [phone], Ext [phone]. CM confirmed that the tentative plan/goal is for Patient to return home tomorrow after completion of the IV ABT (he does not want to go to [facility]) with new VNA. CM will inform Hip[facility] of the final dc plan. Per Part[facility] Patient has [employer]. CM will follow.
--- NOTE | 2022-08-10 14:15 | P.PNIM_ITS ---
Subjective Subjective Date of Service: 08/10/22 Interval History: offers no acute complaints denies shortness of breath, no chest pain, no fevers no chills tolerating diet with no nausea, no vomiting no abdominal pain or diarrhea. Review of Systems Review of Systems: Yes all other systems are reviewed and are negative Physical Exam Vital Signs: Vital Signs: Last Vital Signs Temp 98.2 F 08/10/22 10:42 Pulse 99 08/10/22 10:42 Resp 20 08/10/22 10:42 BP 126/63 08/10/22 10:42 Pulse Ox 96 08/10/22 10:42 O2 Del Method 08/10/22 10:42 O2 Flow Rate 3 08/10/22 10:42 Oxygen Flow Rate 4 07/27/22 21:26 BMI result Body Mass Index 33.1 Const: Other: General: resting comfortably awake alert x3 in no acute distress neck supple no JVD Resp:? CTA bilateral, no wheezing, no rales CVS: S1,S2,RRR GI: obese nontender bowel sounds audible Skin: No rash, dry Neuro:? motor grossly intact Psych: appropriate affect Objective Data Active Medications Acetaminophen (Acetaminophen 325 Mg Tablet) 975 mg PO BID PRN PRN Reason: Pain Last Admin: 08/09/22 09:11 Dose: 975 mg Documented By: VARSHA Acetaminophen (Acetaminophen 325 Mg Tablet) 650 mg PO Q6H PRN PRN Reason: Pain, Mild (Pain Scale 1-3) Last Admin: 08/10/22 09:03 Dose: 650 mg Documented By: VARSHA Albuterol Sulfate (Albuterol Sulfate 90 Mcg 8 Gm Inhaler) 2 puff INHALE Q4H PRN PRN Reason: Shortness Of Breath Apixaban (Apixaban 5 Mg Tablet) 5 mg PO BID [facility] Last Admin: 08/10/22 09:02 Dose: 5 mg Documented By: VARSHA Atorvastatin Calcium (Atorvastatin Calcium 80 Mg Tablet) 80 mg PO DAILY [facility] Last Admin: 08/10/22 08:52 Dose: 80 mg Documented By: VARSHA Heparin Sodium (Porcine) 50 (units/ Sodium Chloride 5 ml) 0 units IVFLUSH TID [facility] Last Admin: 08/10/22 08:51 Dose: 5 unit Documented By: VARSHA Digoxin (Digoxin 0.125 Mg Tablet) 0.125 mg PO Q2D@0900 [facility] Last Admin: 08/09/22 09:00 Dose: 0.125 mg Documented By: VARSHA Docusate Sodium (Docusate Sodium 100 Mg Capsule) 100 mg PO DAILY PRN PRN Reason: Constipation Last Admin: 08/06/22 17:24 Dose: 100 mg Documented By: FOGARTB Doxazosin Mesylate (Doxazosin Mesylate 2 Mg Tablet) 4 mg PO BEDTIME [facility]; Protocol Last Admin: 08/09/22 21:49 Dose: Not Given Documented By: ERIN Non-Admin Reason: Physician Held Med Duloxetine HCl (Duloxetine Hcl 30 Mg Capsule.) 30 mg PO DAILY [facility] Last Admin: 08/10/22 08:51 Dose: 30 mg Documented By: VARSHA Duloxetine HCl (Duloxetine Hcl 60 Mg Capsule.) 60 mg PO BEDTIME [facility] Last Admin: 08/09/22 21:49 Dose: Not Given Documented By: ERIN Non-Admin Reason: Physician Held Med Empagliflozin (Empagliflozin 10 Mg Tablet) 10 mg PO DAILY [facility] Last Admin: 08/10/22 08:54 Dose: 10 mg Documented By: VARSHA Ferrous Sulfate (Ferrous Sulfate 324 Mg Tablet.) 324 mg PO DAILY [facility] Last Admin: 08/10/22 08:54 Dose: 324 mg Documented By: VARSHA Finasteride (Finasteride 5 Mg Tablet) 5 mg PO DAILY [facility] Last Admin: 08/10/22 08:52 Dose: 5 mg Documented By: VARSHA Fluticasone Propionate (Fluticasone Propionate Nasal 16 Gm [place]) 1 spray NOSTRIL-B BID [facility] Last Admin: 08/10/22 08:55 Dose: 1 spray Documented By: VARSHA Gabapentin (Gabapentin 400 Mg Capsule) 400 mg PO 5XD [facility] Last Admin: 08/10/22 12:29 Dose: 400 mg Documented By: VARSHA Glucose (Glucose Gel 15 Gm Gel..Gram.) 15 gm PO Q15M PRN; Protocol PRN Reason: per Hypoglycemia Standing Ord. Hydroxyzine HCl (Hydroxyzine Hcl 25 Mg Tablet) 25 mg PO TID PRN PRN Reason: Anxiety Last Admin: 08/06/22 17:27 Dose: 25 mg Documented By: DANNY Dextrose (D10) 250 mls @ 750 mls/hr IV Q15M PRN; Protocol PRN Reason: per Hypoglycemia Standing Ord. Meropenem 1 gm/ Sodium (Chloride) 100 mls @ 200 mls/hr IV Q8H [facility] Last Infusion: 08/10/22 10:51 Dose: 0 mls/hr Documented By: VARSHA Insulin Glargine (Insulin Glargine,Hum.Rec.Anlog 100 Unit/Ml 10 Ml Vial) 14 uni t SUBCUT BEDTIME [facility] Last Admin: 08/09/22 21:49 Dose: Not Given Documented By: ERIN Non-Admin Reason: Physician Held Med Insulin Human Lispro (Insulin Lispro 100 Unit/Ml 3 Ml Vial) 0 unit SUBCUT QIDACHS [facility]; Protocol Last Admin: 08/10/22 12:28 Dose: 2 unit Documented By: VARSHA Lorazepam (Lorazepam 1 Mg Tablet) 2 mg PO TID PRN PRN Reason: anxiety Last Admin: 08/10/22 09:04 Dose: 2 mg Documented By: VARSHA Magnesium Oxide (Magnesium Oxide 400 Mg Tablet) 400 mg PO DAILY [facility] Last Admin: 08/10/22 08:55 Dose: 400 mg Documented By: VARSHA Metoprolol Succinate (Metoprolol Succinate Er 25 Mg Tab.Er.24h) 75 mg PO BID [facility]; Protocol Last Admin: 08/10/22 08:52 Dose: 75 mg Documented By: VARSHA Omeprazole (Omeprazole 20 Mg [place].) 20 mg PO DAILY@0630 [facility] Last Admin: 08/10/22 05:38 Dose: 20 mg Documented By: ERIN Ondansetron HCl (Ondansetron Hcl 4 Mg/2 Ml Vial) 4 mg IVPUSH Q8H PRN PRN Reason: Nausea and Vomiting Oxycodone HCl (Oxycodone Hcl Immed Release 5 Mg Tablet) 5 mg PO Q6H PRN PRN Reason: moderate pain Last Admin: 08/10/22 12:29 Dose: 5 mg Documented By: VARSHA Phenytoin Sodium (Phenytoin Sodium Extended 100 Mg Capsule) 300 mg PO DAILY [facility] Last Admin: 08/10/22 09:03 Dose: 300 mg Documented By: VARSHA Phenytoin Sodium (Phenytoin Sodium Extended 100 Mg Capsule) 400 mg PO BEDTIME [facility] Last Admin: 08/09/22 21:46 Dose: 400 mg Documented By: ERIN Quetiapine Fumarate (Quetiapine Fumarate 100 Mg Tablet) 100 mg PO BEDTIME PRN PRN Reason: Insomnia Quetiapine Fumarate (Quetiapine Fumarate 200 Mg Tablet) 200 mg PO BID [facility] Last Admin: 08/10/22 08:51 Dose: 200 mg Documented By: VARSHA Sodium Chloride (0.9 % Sodium Chloride Flush 3 Ml Syringe) 3 ml IVFLUSH QSHIFT [facility] Last Admin: 08/10/22 09:12 Dose: 3 ml Documented By: VARSHA Trazodone HCl (Trazodone Hcl 100 Mg Tablet) 100 mg PO BEDTIME [facility] Last Admin: 08/09/22 21:50 Dose: Not Given Documented By: ERIN Non-Admin Reason: Physician Held Med Labs 08/07/22 06:29 08/07/22 06:29 Labs: Laboratory Results - last 24 hr 08/09/22 08/09/22 08/10/22 16:12 19:41 07:25 POC Glucose 187 H 146 H 151 H 08/10/22 11:22 POC Glucose 169 H Assessment and Plan (1) Bladder outlet obstruction: Status: Acute (2) Physical deconditioning: Status: Acute (3) Acute UTI: Status: Acute Plan 62-year-old male with a PMH significant for?paroxysmal AFib on Eliquis, insulin- dependent diabetes, mood disorder, chronic pain on opioids, and HTN who developed a fever and leukocytosis after being in the ED overflow awaiting placement for rehab.? Pt will be admitted to the hospital for treatment of UTI with IV antibiotics. Sepsis d/t Acute cystitis, due to ESBL ecoli seen by ID and Urology continue Doxazosin and Finasteride Continue MEropenem end day august 11 Midline placed hypotension due to hypovolemia not sepsis resonded to ivf, holding torsemide, monitor, improving acute hypokalemia improved to 3.5 Abdominal pain Better, CT no acute finding continue bowel regimen HTN toprol, cardura Paroxysmal AFib Continue Eliquis, metoprolol, digoxin Insulin-dependent diabetes continue Jardiance, SSI,and Lantus Chronic hypoxic respiratory failure On home O2 4 L, continue Mild intermittent asthma without acute exacerbation Continue home inhalers Seizure disorder Continue phenytoin Chronic iron deficiency anemia Continue iron supplementation Mood disorder Continue quetiapine, trazodone, duloxetine dvt prophylaxis - eliquis full code Need for inatient: Resistant E coli UTI that needs IV Abx pending safe discharge plan Time Spent With Patient Time: Total time managing care of this patient today ____ minutes. Quality Stroke Does the patient have a stroke diagnosis?: No VTE Prior VTE?: No VTE Risk Level:: Medical - moderate - high VTE Device Contraindication: Treatment Not Indicated VTE Drug Contraindication: N/A - Med Ordered
[2022-08-10 15:04] VITALS: BP 121/70; PULSE 82; RESP 20; TEMP 36.6; O2SAT 96
[2022-08-10 16:05] LABS: Glucose, Whole Blood 185 mg/dL (60-115)
[2022-08-10 19:10] VITALS: BP 117/71; PULSE 111; RESP 20; TEMP 36.7; O2SAT 99
[2022-08-10 19:35] LABS: Glucose, Whole Blood 183 mg/dL (60-115)
[2022-08-10] MEDS: Insulin Glargine,Hum.rec.anlog 100 UNIT/ML 10 ML VIAL 14 UNIT SUBCUT (21:00)
[2022-08-10] MEDS: Phenytoin Sodium Extended 100 MG CAPSULE 400 MG PO (21:01)
[2022-08-10] MEDS: DULoxetine HCl 60 MG CAPSULE.DR PO (21:01)
[2022-08-10] MEDS: traZODone HCL 100 MG TABLET PO (21:02)
[2022-08-10] MEDS: Doxazosin Mesylate 2 MG TABLET 4 MG PO (21:02)
[2022-08-10 23:48] VITALS: BP 84/54; PULSE 79; RESP 20; TEMP 36.8; O2SAT 97
[2022-08-11 00:05] VITALS: BP 101/54; PULSE 92
[2022-08-11 03:59] VITALS: BP 97/58; PULSE 70; RESP 20; TEMP 36.3; O2SAT 97
[2022-08-11] MEDS: Omeprazole 20 MG CAPSULE.DR PO (05:42)
[2022-08-11] MEDS: Gabapentin 400 MG CAPSULE PO ×4 (05:42→20:09)
[2022-08-11] MEDS: oxyCODONE HCl Immed Release 5 MG TABLET PO ×3 (05:43→21:56)
[2022-08-11 06:55] VITALS: BP 111/60; PULSE 86; RESP 20; TEMP 36.6; O2SAT 97
[2022-08-11 07:46] LABS: Glucose, Whole Blood 186 mg/dL (60-115)
[2022-08-11] MEDS: Heparin Sodium,Porcine Flush 50 UNITS, 0.9 % Sodium Chloride Flush 5 ML IVFLUSH ×2 (08:02→15:28)
[2022-08-11] MEDS: QUEtiapine Fumarate 200 MG TABLET PO ×2 (08:03→20:09)
[2022-08-11] MEDS: Phenytoin Sodium Extended 100 MG CAPSULE 300 MG PO (08:03)
[2022-08-11] MEDS: DULoxetine HCl 30 MG CAPSULE.DR PO (08:03)
[2022-08-11] MEDS: Finasteride 5 MG TABLET PO (08:03)
[2022-08-11] MEDS: Empagliflozin 10 MG TABLET PO (08:04)
[2022-08-11] MEDS: Atorvastatin Calcium 80 MG TABLET PO (08:04)
[2022-08-11] MEDS: Magnesium Oxide 400 MG TABLET PO (08:04)
[2022-08-11] MEDS: 0.9 % Sodium Chloride Flush 3 ML SYRINGE IVFLUSH ×2 (08:04→15:29)
[2022-08-11] MEDS: Digoxin 0.125 MG TABLET PO (08:04)
[2022-08-11] MEDS: Apixaban 5 MG TABLET PO ×2 (08:04→20:09)
[2022-08-11] MEDS: Metoprolol Succinate ER 25 MG TAB.ER.24H 75 MG PO ×2 (08:04→20:09)
[2022-08-11] MEDS: Insulin Lispro 100 UNIT/ML 3 ML VIAL SUBCUT ×4 (08:04→20:10)
[2022-08-11] MEDS: Fluticasone Propionate Nasal 16 GM SPRAY 1 SPRAY NOSTRIL-B ×2 (08:11→20:15)
[2022-08-11] MEDS: LORazepam 1 MG TABLET 2 MG PO ×3 (08:14→21:56)
--- NOTE | 2022-08-11 08:15 | P.CDIM_ITS ---
PROVIDER RESPONSE TEXT: To clarify, the appropriate diagnosis supported by the clinical indicators: Clinically unable to determine (explain): admission note and subsequent note says axox3 ,on multiple psyche meds that can cause seadation at times QUERY TEXT: PHYSICIAN'S DOCUMENTATION REQUEST Date of Query: 08/10/2022 12:47 PM EST Patient Name: Sage Bartholomew Admit Date: 07/30/2022 Dear Hema May, A review of the medical record indicates additional documentation may be needed. Please review below and update the documentation accordingly. Clinical Indicators: POA/RESOLVED/TREAT/RULE OUT -Per ID consult: sleepy, encephalopathic -Per RN shift assessments: Patient disoriented to time and situation and is forgetful. Patient did not know where he was and was very confused. Patient confused and requires frequent redirection. Other indicators/risk factors: -Patient being treated for sepsis -Patient being treated for acute hypoxic RF -No dementia or AMS conditions in PMH Based on the above, please further specify, in the Progress Notes, the known or suspected type of res olved or present encephalopathy: Metabolic Septic Toxic Toxic metabolic Other Other (explain) Clinically unable to determine (explain) Thank you, Zoe Ojeda, MS, RN, CCRN Use of terms such as suspected, likely, concern for, or probable (associated with a specific diagnosi s that is being evaluated, monitored, or treated as if it exists) are acceptable and can be coded in the inpatient se tting, when documented at the time of discharge. Please use your independent medical judgment in providing your response. THIS QUERY IS PART OF THE PERMANENT MEDICAL RECORD
[2022-08-11 10:58] LABS: Glucose, Whole Blood 190 mg/dL (60-115)
[2022-08-11 11:30] VITALS: BP 108/64; PULSE 90; RESP 20; TEMP 37.2; O2SAT 96
--- NOTE | 2022-08-11 14:13 | P.PNIM_ITS ---
Subjective Subjective Date of Service: 08/11/22 Interval History: offers no acute complaints was out of bed to chair only for few minutes, back in bed now tolerating diet no nausea ,no vomiting, no other acute issues overnight. Review of Systems Review of Systems: Yes all other systems are reviewed and are negative Physical Exam Vital Signs: Vital Signs: Last Vital Signs Temp 98.9 F 08/11/22 11:30 Pulse 90 08/11/22 11:30 Resp 20 08/11/22 11:30 BP 108/64 08/11/22 11:30 Pulse Ox 96 08/11/22 11:30 O2 Del Method 08/11/22 11:30 O2 Flow Rate 3 08/11/22 11:30 Oxygen Flow Rate 4 07/27/22 21:26 BMI result Body Mass Index 33.1 Const: Other: General:? resting comfortably awake alert x3 in no acute distress neck supple no JVD Resp:? CTA bilateral, no wheezing, no rales CVS: S1,S2,RRR GI:? obese nontender bowel sounds audible Skin: No rash, dry Neuro:? motor grossly intact Psych: appropriate affect Objective Data Active Medications Acetaminophen (Acetaminophen 325 Mg Tablet) 975 mg PO BID PRN PRN Reason: Pain Last Admin: 08/09/22 09:11 Dose: 975 mg Documented By: VARSHA Acetaminophen (Acetaminophen 325 Mg Tablet) 650 mg PO Q6H PRN PRN Reason: Pain, Mild (Pain Scale 1-3) Last Admin: 08/10/22 09:03 Dose: 650 mg Documented By: VARSHA Albuterol Sulfate (Albuterol Sulfate 90 Mcg 8 Gm Inhaler) 2 puff INHALE Q4H PRN PRN Reason: Shortness Of Breath Apixaban (Apixaban 5 Mg Tablet) 5 mg PO BID [facility] Last Admin: 08/11/22 08:04 Dose: 5 mg Documented By: NICOLLE Atorvastatin Calcium (Atorvastatin Calcium 80 Mg Tablet) 80 mg PO DAILY [facility] Last Admin: 08/11/22 08:04 Dose: 80 mg Documented By: NICOLLE Heparin Sodium (Porcine) 50 (units/ Sodium Chloride 5 ml) 0 units IVFLUSH TID [facility] Last Admin: 08/11/22 08:02 Dose: 50 unit Documented By: NICOLLE Digoxin (Digoxin 0.125 Mg Tablet) 0.125 mg PO Q2D@0900 [facility] Last Admin: 08/11/22 08:04 Dose: 0.125 mg Documented By: NICOLLE Docusate Sodium (Docusate Sodium 100 Mg Capsule) 100 mg PO DAILY PRN PRN Reason: Constipation Last Admin: 08/06/22 17:24 Dose: 100 mg Documented By: DANNY Doxazosin Mesylate (Doxazosin Mesylate 2 Mg Tablet) 4 mg PO BEDTIME [facility]; Protocol Last Admin: 08/10/22 21:02 Dose: 4 mg Documented By: OMERO Duloxetine HCl (Duloxetine Hcl 30 Mg Capsule.) 30 mg PO DAILY [facility] Last Admin: 08/11/22 08:03 Dose: 30 mg Documented By: NICOLLE Duloxetine HCl (Duloxetine Hcl 60 Mg Capsule.) 60 mg PO BEDTIME [facility] Last Admin: 08/10/22 21:01 Dose: 60 mg Documented By: OMERO Empagliflozin (Empagliflozin 10 Mg Tablet) 10 mg PO DAILY [facility] Last Admin: 08/11/22 08:04 Dose: 10 mg Documented By: NICOLLE Ferrous Sulfate (Ferrous Sulfate 324 Mg Tablet.) 324 mg PO DAILY [facility] Last Admin: 08/11/22 08:10 Dose: Not Given Documented By: NICOLLE Non-Admin Reason: Patient Refused Finasteride (Finasteride 5 Mg Tablet) 5 mg PO DAILY [facility] Last Admin: 08/11/22 08:03 Dose: 5 mg Documented By: NICOLLE Fluticasone Propionate (Fluticasone Propionate Nasal 16 Gm [place]) 1 spray NOSTRIL-B BID [facility] Last Admin: 08/11/22 08:11 Dose: 1 spray Documented By: NICOLLE Gabapentin (Gabapentin 400 Mg Capsule) 400 mg PO 5XD [facility] Last Admin: 08/11/22 09:01 Dose: 400 mg Documented By: NICOLLE Glucose (Glucose Gel 15 Gm Gel..Gram.) 15 gm PO Q15M PRN; Protocol PRN Reason: per Hypoglycemia Standing Ord. Hydroxyzine HCl (Hydroxyzine Hcl 25 Mg Tablet) 25 mg PO TID PRN PRN Reason: Anxiety Last Admin: 08/06/22 17:27 Dose: 25 mg Documented By: DANNY Dextrose (D10) 250 mls @ 750 mls/hr IV Q15M PRN; Protocol PRN Reason: per Hypoglycemia Standing Ord. Meropenem 1 gm/ Sodium (Chloride) 100 mls @ 200 mls/hr IV Q8H [facility] Last Infusion: 08/11/22 10:18 Dose: 0 mls/hr Documented By: NICOLLE Insulin Glargine (Insulin Glargine,Hum.Rec.Anlog 100 Unit/Ml 10 Ml Vial) 14 unit SUBCUT BEDTIME [facility] Last Admin: 08/10/22 21:00 Dose: 14 unit Documented By: OMERO Insulin Human Lispro (Insulin Lispro 100 Unit/Ml 3 Ml Vial) 0 unit SUBCUT QIDACHS [facility]; Protocol Last Admin: 08/11/22 11:46 Dose: 2 unit Documented By: NICOLLE Lorazepam (Lorazepam 1 Mg Tablet) 2 mg PO TID PRN PRN Reason: anxiety Last Admin: 08/11/22 08:14 Dose: 2 mg Documented By: NICOLLE Magnesium Oxide (Magnesium Oxide 400 Mg Tablet) 400 mg PO DAILY [facility] Last Admin: 08/11/22 08:04 Dose: 400 mg Documented By: NICOLLE Metoprolol Succinate (Metoprolol Succinate Er 25 Mg Tab.Er.24h) 75 mg PO BID [facility]; Protocol Last Admin: 08/11/22 08:04 Dose: 75 mg Documented By: NICOLLE Omeprazole (Omeprazole 20 Mg Capsule.Dr) 20 mg PO DAILY@0630 [facility] Last Admin: 08/11/22 05:42 Dose: 20 mg Documented By: OMERO Ondansetron HCl (Ondansetron Hcl 4 Mg/2 Ml Vial) 4 mg IVPUSH Q8H PRN PRN Reason: Nausea and Vomiting Oxycodone HCl (Oxycodone Hcl Immed Release 5 Mg Tablet) 5 mg PO Q6H PRN PRN Reason: moderate pain Last Admin: 08/11/22 05:43 Dose: 5 mg Documented By: OMERO Phenytoin Sodium (Phenytoin Sodium Extended 100 Mg Capsule) 300 mg PO DAILY [facility] Last Admin: 08/11/22 08:03 Dose: 300 mg Documented By: NICOLLE Phenytoin Sodium (Phenytoin Sodium Extended 100 Mg Capsule) 400 mg PO BEDTIME [facility] Last Admin: 08/10/22 21:01 Dose: 400 mg Documented By: OMERO Quetiapine Fumarate (Quetiapine Fumarate 100 Mg Tablet) 100 mg PO BEDTIME PRN PRN Reason: Insomnia Quetiapine Fumarate (Quetiapine Fumarate 200 Mg Tablet) 200 mg PO BID [facility] Last Admin: 08/11/22 08:03 Dose: 200 mg Documented By: DARRELLORRDeanna Sodium Chloride (0.9 % Sodium Chloride Flush 3 Ml Syringe) 3 ml IVFLUSH QSHIFT [facility] Last Admin: 08/11/22 08:04 Dose: 3 ml Documented By: DARRELLORRDeanna Trazodone HCl (Trazodone Hcl 100 Mg Tablet) 100 mg PO BEDTIME [facility] Last Admin: 08/10/22 21:02 Dose: 100 mg Documented By: OMERO Labs 08/07/22 06:29 08/07/22 06:29 Labs: Laboratory Results - last 24 hr 08/10/22 08/10/22 08/11/22 16:01 19:31 06:58 POC Glucose 185 H 183 H 186 H 08/11/22 10:55 POC Glucose 190 H Assessment and Plan (1) Bladder outlet obstruction: Status: Acute (2) Physical deconditioning: Status: Acute (3) Acute UTI: Status: Acute Plan 62-year-old male with a PMH significant for?paroxysmal AFib on Eliquis, insulin-dependent diabetes, mood disorder, chronic pain on opioids, and HTN who developed a fever and leukocytosis after being in the ED overflow awaiting placement for rehab.? Pt will be admitted to the hospital for treatment of UTI with IV antibiotics. Sepsis d/t Acute cystitis, due to ESBL ecoli seen by ID and Urology continue Doxazosin and Finasteride last day of Meropenem today,dc midline at am hypotension due to hypovolemia not sepsis resonded to ivf, holding torsemide, monitor, improving,will resume 20mg daily acute hypokalemia improved to 3.5 Abdominal pain Better, CT no acute finding continue bowel regimen HTN toprol, cardura Paroxysmal AFib Continue Eliquis, metoprolol, digoxin Insulin-dependent diabetes continue Jardiance, SSI,and Lantus Chronic hypoxic respiratory failure On home O2 4 L, continue Mild intermittent asthma without acute exacerbation Continue home inhalers Seizure disorder Continue phenytoin Chronic iron deficiency anemia Continue iron supplementation Mood disorder Continue quetiapine, trazodone, duloxetine dvt prophylaxis - eliquis full code Need for inatient: Resistant E coli UTI that needs IV Abx pending safe discharge plan Time Spent With Patient Time: Total time managing care of this patient today ____ minutes. Quality Stroke Does the patient have a stroke diagnosis?: No VTE Prior VTE?: No VTE Risk Level:: Medical - moderate - high VTE Device Contraindication: Treatment Not Indicated VTE Drug Contraindication: N/A - Med Ordered
[2022-08-11 15:39] VITALS: BP 129/60; PULSE 79; RESP 15; TEMP 36.2; O2SAT 96
[2022-08-11 15:58] LABS: Glucose, Whole Blood 189 mg/dL (60-115)
[2022-08-11 19:20] VITALS: BP 126/65; PULSE 87; RESP 14; TEMP 36.5; O2SAT 94
[2022-08-11 19:54] LABS: Glucose, Whole Blood 153 mg/dL (60-115)
[2022-08-11] MEDS: traZODone HCL 100 MG TABLET PO (20:09)
[2022-08-11] MEDS: Doxazosin Mesylate 2 MG TABLET 4 MG PO (20:09)
[2022-08-11] MEDS: Phenytoin Sodium Extended 100 MG CAPSULE 400 MG PO (20:09)
[2022-08-11] MEDS: DULoxetine HCl 60 MG CAPSULE.DR PO (20:09)
[2022-08-11] MEDS: Insulin Glargine,Hum.rec.anlog 100 UNIT/ML 10 ML VIAL 14 UNIT SUBCUT (20:10)
[2022-08-12] VITALS: BP 109/61; PULSE 83; RESP 20; TEMP 36.7; O2SAT 97
[2022-08-12 03:30] VITALS: BP 103/64; PULSE 77; RESP 20; TEMP 36.2; O2SAT 94
[2022-08-12] MEDS: Gabapentin 400 MG CAPSULE PO ×2 (05:23→10:19)
[2022-08-12] MEDS: oxyCODONE HCl Immed Release 5 MG TABLET PO ×2 (05:23→12:53)
[2022-08-12] MEDS: Omeprazole 20 MG CAPSULE.DR PO (05:23)
[2022-08-12 07:24] VITALS: BP 145/85; PULSE 86; RESP 20; TEMP 36.9; O2SAT 97
[2022-08-12 08:13] LABS: Glucose, Whole Blood 186 mg/dL (60-115)
[2022-08-12] MEDS: 0.9 % Sodium Chloride Flush 3 ML SYRINGE IVFLUSH (08:25)
[2022-08-12] MEDS: Phenytoin Sodium Extended 100 MG CAPSULE 300 MG PO (08:25)
[2022-08-12] MEDS: LORazepam 1 MG TABLET 2 MG PO (08:25)
[2022-08-12] MEDS: Insulin Lispro 100 UNIT/ML 3 ML VIAL SUBCUT ×2 (08:25→12:42)
[2022-08-12] MEDS: Magnesium Oxide 400 MG TABLET PO (08:26)
[2022-08-12] MEDS: QUEtiapine Fumarate 200 MG TABLET PO (08:26)
[2022-08-12] MEDS: Finasteride 5 MG TABLET PO (08:26)
[2022-08-12] MEDS: Empagliflozin 10 MG TABLET PO (08:26)
[2022-08-12] MEDS: Acetaminophen 325 MG TABLET 975 MG PO (08:26)
[2022-08-12] MEDS: DULoxetine HCl 30 MG CAPSULE.DR PO (08:26)
[2022-08-12] MEDS: Metoprolol Succinate ER 25 MG TAB.ER.24H 75 MG PO (08:27)
[2022-08-12] MEDS: Atorvastatin Calcium 80 MG TABLET PO (08:27)
[2022-08-12] MEDS: Fluticasone Propionate Nasal 16 GM SPRAY 1 SPRAY NOSTRIL-B (08:30)
[2022-08-12] MEDS: Apixaban 5 MG TABLET PO (08:31)
--- NOTE | 2022-08-12 10:09 | HO.REMOVAL ---
Removal of PICC/Midline Removal of PICC/Midline: Removal of Midline: 1. Date: 08/12/2022 2. Reason removed: NO LONGER NEEDED 3. Inserted length: [id number] POWERGLIDE ST NON-PASV MIDLINE 4. Removed length: [id number] POWERGLIDE ST NON-PASV MIDLINE--INTACT 5. A dressing 2X2 GAUZE WITH TEGADERM was applied over the site RIGHT BASILIC upon removal. No edema or bleeding at the site.
--- NOTE | 2022-08-12 10:39 | MHC.CM.PN ---
Per ROUNDS discussion, Patient is medically cleared for dc to home today with new VNA. [facility] has accepted Patient (RN & PT) and they have been made aware of today's dc. CM met with Patient at bedside and he is aware of and pleased with the dc plan, per his statement. Patient will dc to home today at 1PM, via [facility] (RN & MD are aware).
[2022-08-12 10:59] LABS: Glucose, Whole Blood 176 mg/dL (60-115)
[2022-08-12 11:12] VITALS: BP 116/57; PULSE 79; RESP 18; TEMP 36.3; O2SAT 97
--- NOTE | 2022-08-12 11:54 | PM.DS ---
DS: Providers Provider Date of Service: 08/12/22 Date of admission: 07/30/22 13:14 Primary care physician: Brown Parada MD Consults: 07/30/22 13:34 Consult to Infectious Diseases Routine Consulting Provider: Penny Hayden Reason for consultation: Urosepsis Has provider been notified: Yes 08/01/22 13:41 Consult to Urology Routine Consulting Provider: Kev Ferraro Reason for consultation: recurrent UTI's DS: Diagnosis Discharge Diagnosis (1) Bladder outlet obstruction: Status: Acute (2) Physical deconditioning: Status: Acute (3) Acute UTI: Status: Acute (4) Sepsis: Status: Acute DS: Summary Hospital Course Hospital Course: Admission note HPI This is a 62-year-old male with pertinent history of atrial fibrillation on Eliquis, insulin-dependent diabetes mellitus, mood disorder, morbid obesity, chronic pain with opioid use, essential hypertension who initially presented on 07/08 after mechanical fall and was kept as physician observation in the ER.? Hospital Medicine consulted as patient's urine culture grew Staph aureus.? Patient states he is mostly mobile and uses a wheelchair to ambulate.? He presented to the ER after a mechanical fall after he tripped while trying to get out of his wheelchair in the bathroom.? In the ER, urine culture grew Staph aureus and lactic acid was 2.2.? Blood pressure noted to be soft with systolic in the 90s and Hospital Medicine group consulted for further evaluation and management.? Patient does complain of dysuria at the time of my evaluation but has no other complaints. Hospital course The patient was admitted to the hospital for evaluation of sepsis secondary to acute urine infection. Urine culture grew ESBL E coli. The patient was evaluated by infectious disease specialist and treated with IV meropenem during the hospital stay for total of 2 weeks as no placement could be found. Noted to have problem passing the urine with possible enlarged prostate evaluated by a urologist who started the patient on doxazosin and finasteride with good improvement in the urine flow. Evaluated by physical therapy during the hospital stay with plan to go back home with [employer]. Start doxazosin and finasteride as prescribed Start magnesium supplement To follow-up with Dr. Ferraro from Urology as outpatient in 1-2 months Monitor your weight at home and report any changes to your PCP Time Spent with Patient Time attestation: Total time managing care of this patient today ____ minutes. Discharge coordination time: Greater than 30 minutes Quality: Safe Use of Opioids Does Pt have an Active Cancer Diagnosis on the Problem List?: No Quality: Stroke Does the patient have a stroke diagnosis?: No Physical Exam Vital Signs: Vital Signs: Last Vital Signs Temp 97.3 F 08/12/22 11:12 Pulse 79 08/12/22 11:12 Resp 18 08/12/22 11:12 BP 116/57 L 08/12/22 11:12 Pulse Ox 97 08/12/22 11:12 O2 Del Method 08/12/22 11:12 O2 Flow Rate 3 08/12/22 00:00 Oxygen Flow Rate 4 07/27/22 21:26 BMI result Body Mass Index 33.1 Const: Other: General: AO X 3, no acute distress Resp: CTA bilateral, no wheezing CVS: S1,S2,RRR GI: +BS, NT, no distention or tenderness Skin: No rash, dry Neuro: motor grossly intact Psych: appropriate affect DS: Data Data Completed and Pending Labs on day of discharge: Laboratory Results - last 24 hr 08/11/22 08/11/22 08/12/22 15:54 19:50 08:09 POC Glucose 189 H 153 H 186 H 08/12/22 10:50 POC Glucose 176 H Imaging Chest x-ray: Radiologist's impression: ITS Impressions Chest X-Ray 07/30/22 09:35 IMPRESSION: No evidence for acute disease in the chest. Abdomen/Pelvis CT 07/30/22 14:56 IMPRESSION: Slightly enlarged spleen. Gallstone. New mild T12 vertebral body compression fracture. Old T11 compression fracture. Fleischner guidelines were followed. Discharge Plan Discharge Anticipated Discharge Date/Time: 08/12/22 11:48 Patient Disposition: Home Health Service Discharge Diagnosis: Urinary tract infection Referrals: [facility] [Other] - 1 Week Brown Parada MD [Primary Care Provider] - 1 Week Discharge Medications: New finasteride 5 mg Tablet 5 mg PO DAILY Qty: 30 0RF doxazosin 2 mg Tablet 4 mg PO BEDTIME Qty: 30 0RF Protocol: Hold for SBP< HOLD for SBP < : 90 magnesium oxide 400 mg (241.3 mg magnesium) Tablet 400 mg PO DAILY Qty: 30 0RF Continued trazodone 50 mg tablet 2 tab PO BEDTIME phenytoin sodium extended 100 mg capsule 300 mg PO DAILY lorazepam 2 mg tablet 1 tab PO TID PRN (Reason: Anxiety) pantoprazole 40 mg tablet,delayed release (DR/EC) 1 tab PO DAILY@0630 metformin 1,000 mg tablet 1 tab PO DAILY hydroxyzine HCl 25 mg tablet 1 tab PO TID PRN (Reason: Anxiety) oxycodone 5 mg tablet 1 tab PO BID PRN (Reason: Pain) Eliquis 5 mg tablet 1 tab PO BID atorvastatin 80 mg tablet 1 tab PO DAILY torsemide 20 mg tablet 2 tab PO DAILY gabapentin 400 mg capsule 1 cap PO 5XD phenytoin sodium extended 100 mg capsule 400 mg PO BEDTIME quetiapine 100 mg tablet 1 tab PO BEDTIME PRN (Reason: Insomnia) acetaminophen 500 mg Tablet 1,000 mg PO BID PRN (Reason: Pain) digoxin 125 mcg (0.125 mg) tablet 1 tab PO Q2D albuterol sulfate [ProAir HFA] 90 mcg/actuation Hfa Aerosol Inhaler 2 puff INHALATION Q4-6H PRN (Reason: Shortness Of Breath) fluticasone propionate 50 mcg/actuation [place],Suspension 1 spray INTRANASAL BID Rx Instructions: administer into each nostril insulin lispro 100 unit/mL insulin pen 2 - 10 unit subcut TIDAC duloxetine 30 mg capsule,delayed release(DR/EC) 30 mg PO DAILY duloxetine 30 mg capsule,delayed release(DR/EC) 60 mg PO BEDTIME insulin glargine [Lantus Solostar U-100 Insulin] 100 unit/mL (3 mL) insulin pen 20 unit subcut BEDTIME quetiapine 200 mg tablet 1 tab PO BID metoprolol succinate 25 mg Tablet Extended Release 24 Hr 75 mg PO BID Qty: 0 0RF Protocol: Hold for SBP/HR < HOLD for SBP < : 90 HOLD for HR < : 60 ferrous sulfate 324 mg (65 mg iron) Tablet,Delayed Release (Dr/Ec) 324 mg PO DAILY Jardiance 10 mg Tablet 10 mg PO DAILY Discharge Orders: Discharge Order (Routine); Ordered 08/12/22 Ordered By: Giselle Butterfield Diet: Diabetic diet Activity on Discharge: As tolerated Stand Alone Forms: Patient Portal Discharge page Care Plan Goals: Read below Health Concerns: Read below Plan of Treatment: Read below Assessment: You were admitted to the hospital for evaluation of burning urination. Found to have urine infection with resistant bacteria requiring IV antibiotic treatment for total of 2 weeks with good response. Evaluated by urologist who started prostate medications. Start doxazosin and finasteride as prescribed Start magnesium supplement To follow-up with Dr. Ferraro from Urology as outpatient in 1-2 months Monitor your weight at home and report any changes to your PCP Discharge Date/Time: 08/12/22 13:17
--- NOTE | 2022-08-12 12:06 | P.F2F_ITS ---
Service Date Service Date: 08/12/22 Encounter Date of encounter: 08/12/22 Reasons for Services Signs and symptoms assessed: Physical deconditioning Reason for half-way: medication management and teach disease management Reason for physical therapy: home safety and mobility and therapeutic exercises Homebound: Leaving the home is medically contraindicated at this time without the asist of a device and/or another person due th the listed conditions above and below. Reason homebound: unsteady gait / fall risk Certification: Based on the above findings, I certify that this patient is confined to the home and needs intermittent half-way care, physical therapy and/or speech therapy, or continues to need occupational therapy. The patient is under my care, and I have initiated the establishment of the plan of care. The patient will be followed by a physician who will periodically review the plan of care. Time Spent With Patient Time: Total time managing care of this patient today ____ minutes.
--- NOTE | 2022-08-12 12:34 | MHC.CM.PN ---
Dc summary and face to face have been sent to [facility] [employer]
== END 2022-08-12 13:17 | disposition home health service (06) | DRG 720 ==
LOC: HO.ED 07-30 11:26 → HO.EDOVER 07-30 13:28 → HO.IMC 08-01 16:01
PROVIDERS: Hospitalist; Internal Medicine; Physician Assistant; Admitting Provider Student in an Organized Health Care Education/Training Program; Emergency Provider Internal Medicine; PCP Family Medicine; Visit Provider Student in an Organized Health Care Education/Training Program
DX: A41.9 Sepsis, unspecified organism (principal); J96.11 Chronic respiratory failure with hypoxia; Z99.81 Dependence on supplemental oxygen; N30.00 Acute cystitis without hematuria; E11.9 Type 2 diabetes mellitus without complications; I95.9 Hypotension, unspecified; D50.9 Iron deficiency anemia, unspecified; B96.20 Unspecified Escherichia coli [E. coli] as the cause of diseases classified elsewhere; E66.9 Obesity, unspecified; E86.1 Hypovolemia; E87.6 Hypokalemia; I48.0 Paroxysmal atrial fibrillation; G40.909 Epilepsy, unspecified, not intractable, without status epilepticus; F39 Unspecified mood [affective] disorder; F43.10 Post-traumatic stress disorder, unspecified; M54.9 Dorsalgia, unspecified; G89.29 Other chronic pain; I10 Essential (primary) hypertension; J45.20 Mild intermittent asthma, uncomplicated; I25.10 Atherosclerotic heart disease of native coronary artery without angina pectoris; Z20.822 Contact with and (suspected) exposure to COVID-19; Z87.440 Personal history of urinary (tract) infections; Z91.040 Latex allergy status; Z88.0 Allergy status to penicillin; Z88.1 Allergy status to other antibiotic agents; N13.9 Obstructive and reflux uropathy, unspecified; Z68.33 Body mass index [BMI] 33.0-33.9, adult; Z16.12 Extended spectrum beta lactamase (ESBL) resistance; Z88.6 Allergy status to analgesic agent; Z88.8 Allergy status to other drugs, medicaments and biological substances; Z79.4 Long term (current) use of insulin; Z79.01 Long term (current) use of anticoagulants; Z79.51 Long term (current) use of inhaled steroids; Z79.84 Long term (current) use of oral hypoglycemic drugs; Z79.891 Long term (current) use of opiate analgesic; Z79.899 Other long term (current) drug therapy
CPT/HCPCS: 36410; 36415; 71045; 74176; 80048; 80053; 80076; 80185; 80202; 81001; 81003; 82565; 82947; 83605; 83735; 85025; 85027; 87040; 87086; 87088; 87186; 87502; 87635; 93005; 97110; 97162; 97530; 99285; C1751; J0696; J1642; J2185; J2270; J2405; J3370; Q9957

== ENCOUNTER 2022-10-04 17:45 | Inpatient (IN) | payer OTHER, SELFPAY ==
--- NOTE | ~2022-10-04 | XR_ITS ---
EXAMINATION: XR WRIST, RIGHT XR HAND, RIGHT CLINICAL INFORMATION: Severe pain COMPARISON: Previous x-ray August 2018 TECHNIQUE: PA, lateral, and oblique views of the right wrist and PA, lateral, and oblique views of the right hand FINDINGS: There is an old healed fracture of the distal shaft of the fifth metacarpal bone. There is question of old or healing fracture of the neck of the fourth metacarpal bone. No acute fracture is seen. There is periarticular osteopenia. There is mild arthritis at the first CARE HOME joint and IP joints. There is soft tissue calcification adjacent to the radial side of the PIP joint of the second finger. Soft tissues are otherwise unremarkable. XR/XR hand wrist RT IMPRESSION: Old healed fracture of the distal shaft of the fifth metacarpal bone and question old or healing fracture of the neck of the fourth metacarpal bone. No acute fracture.
--- NOTE | ~2022-10-04 | XR_ITS ---
EXAMINATION: XR FOOT, RIGHT XR FOOT, LEFT CLINICAL INFORMATION: Nonhealing ulcer great toe. COMPARISON: Left ankle radiograph dated 08/29/2015. TECHNIQUE: AP, lateral, and oblique views of the right and left foot were obtained. FINDINGS: RIGHT FOOT: Soft tissue ulceration at the distal aspect of the right great toe. No radiopaque foreign body. There is erosion/lucency through the distal tuft of the adjacent 1st distal phalanx measuring up to 0.7 cm in ML dimension, likely indicating osteomyelitis. No acute fracture or dislocation. Partially visualized distal tibial ORIF. Mild degenerative change throughout the midfoot and at the tibiotalar joint. LEFT FOOT: Soft tissue ulceration along the distal/medial aspect of the great toe with circumferential soft tissue swelling. No radiopaque foreign body. No adjacent cortical erosion or periosteal reaction to suggest acute osteomyelitis, however, this may be occult on plain radiographs. No acute fracture or dislocation. Osteoarthritis scattered throughout the interphalangeal joints. Severe osteoarthritis with prominent bony remodeling throughout the tibiotalar and midfoot joints. Large marginal osteophytes. There is attenuation of the talus which could indicate prior fusion surgery. The distal fibula appears absent. XR/XR foot RT 2V IMPRESSION: RIGHT FOOT: Soft tissue ulceration at the distal aspect of the right great toe. Erosion/lucency through the distal tuft of the 1st distal phalanx, likely indicating osteomyelitis. LEFT FOOT: 1. Soft tissue ulceration along the distal/medial aspect of the great toe with circumferential soft tissue swelling. No radiopaque foreign body. No adjacent cortical erosion or periosteal reaction to suggest acute osteomyelitis, however, this may be occult on plain radiographs. 2. Severe osteoarthritis with prominent bony remodeling throughout the tibiotalar and midfoot joints, similar when compared to the prior radiographs from 2016.
--- NOTE | ~2022-10-04 | XR_ITS ---
EXAMINATION: XR CHEST CLINICAL INFORMATION: Check PICC line placement COMPARISON: Previous chest x-ray 07/30/2022 TECHNIQUE: 1 view of the chest was obtained. FINDINGS: There is a new right upper extremity PICC line with tip projecting over the SVC. Cardiac and mediastinal contours are stable. The lungs are clear. No pleural effusion or pneumothorax. No acute bone abnormality. XR/XR chest 1V IMPRESSION: Right upper extremity PICC line tip projects over SVC.
--- NOTE | ~2022-10-04 | US_ITS ---
EXAMINATION: NONINVASIVE ASSESSMENT OF THE ARTERIES OF THE RIGHT LOWER EXTREMITIES INCLUDING THE RIGHT LOWER EXTREMITY DUPLEX. CLINICAL INFORMATION: Osteomyelitis, nonhealing foot ulcer COMPARISON: None TECHNIQUE: duplex Doppler techniques with wave form analysis and measurement of velocities in the common femoral, profunda femoral, superficial femoral, popliteal, tibial and peroneal arteries. The study was performed only at rest. FINDINGS: RIGHT LEG Common femoral artery: 116 cm/s, Multiphasic Profunda femoris artery: 53 cm/s, Multiphasic Superficial femoral artery (proximal): 158 cm/s, Multiphasic Superficial femoral artery (mid): 146 cm/s, Multiphasic Superficial femoral artery (distal): 149 cm/s, Multiphasic Proximal Popliteal artery: 127 cm/s, monophasic Mid posterior tibial artery: 132 cm/s, monophasic Incidental note is made of cardiac arrhythmia. US/US arterial duplex LE RT IMPRESSION: 1. No hemodynamically significant stenosis in the right lower extremity. 2. Incidental note is made of cardiac arrhythmia.
--- NOTE | ~2022-10-04 | XR_ITS ---
EXAMINATION: XR FOOT, RIGHT XR FOOT, LEFT CLINICAL INFORMATION: Nonhealing ulcer great toe. COMPARISON: Left ankle radiograph dated 08/29/2015. TECHNIQUE: AP, lateral, and oblique views of the right and left foot were obtained. FINDINGS: RIGHT FOOT: Soft tissue ulceration at the distal aspect of the right great toe. No radiopaque foreign body. There is erosion/lucency through the distal tuft of the adjacent 1st distal phalanx measuring up to 0.7 cm in ML dimension, likely indicating osteomyelitis. No acute fracture or dislocation. Partially visualized distal tibial ORIF. Mild degenerative change throughout the midfoot and at the tibiotalar joint. LEFT FOOT: Soft tissue ulceration along the distal/medial aspect of the great toe with circumferential soft tissue swelling. No radiopaque foreign body. No adjacent cortical erosion or periosteal reaction to suggest acute osteomyelitis, however, this may be occult on plain radiographs. No acute fracture or dislocation. Osteoarthritis scattered throughout the interphalangeal joints. Severe osteoarthritis with prominent bony remodeling throughout the tibiotalar and midfoot joints. Large marginal osteophytes. There is attenuation of the talus which could indicate prior fusion surgery. The distal fibula appears absent. XR/XR foot LT 2V IMPRESSION: RIGHT FOOT: Soft tissue ulceration at the distal aspect of the right great toe. Erosion/lucency through the distal tuft of the 1st distal phalanx, likely indicating osteomyelitis. LEFT FOOT: 1. Soft tissue ulceration along the distal/medial aspect of the great toe with circumferential soft tissue swelling. No radiopaque foreign body. No adjacent cortical erosion or periosteal reaction to suggest acute osteomyelitis, however, this may be occult on plain radiographs. 2. Severe osteoarthritis with prominent bony remodeling throughout the tibiotalar and midfoot joints, similar when compared to the prior radiographs from 2016.
--- OUTSIDE RECORDS SUMMARY | 2022-10-04 17:47 | XMS_ITS | Continuity of Care Document ---
Author Name Unknown Organization [facility] Address [address] [place] [id number]- Care Team Providers Care Machine Wedger Name Role Phone Tal WILKINS, Brown Paz Primary Care Physician Encounter [facility] Date(s): 08/02/22 - 09/01/22 [facility] [address] [place] [address]- Allergies, Adverse Reactions, Alerts Substance Reaction Severity Status clindamycin Hives Active penicillin rash Active Bee Stings Active Contrast Dye urticaria Active Latex anaphylaxis Active antivenin (black spider) Active Immunizations Given and Recorded Vaccine Date Status Refusal Reason SARS-CoV-2 (COVID-19) mRNA-1273 vaccine 10/22/21 R ecorded SARS-CoV-2 (COVID-19) mRNA-1273 vaccine 1 07/10/21 Given SARS-CoV-2 (COVID-19) mRNA-1273 vaccine 02/27/21 R ecorded SARS-CoV-2 (COVID-19) mRNA-1273 vaccine 01/13/21 G iven influenza virus vaccine, inactivated 07/10/21 Give n influenza virus vaccine, inactivated 03/24/20 Francesco rded influenza virus vaccine, inactivated 2 05/15/18 Gi kyle influenza virus vaccine, inactivated 05/19/17 Francesco rded influenza virus vaccine, inactivated 03/12/16 Francesco rded influenza virus vaccine, inactivated 04/23/15 Francesco rded influenza virus vaccine, inactivated 03/07/14 Francesco rded tetanus-diphtheria toxoids (Td) 3 07/18/19 Given tetanus-diphtheria toxoids (Td) 02/02/12 Recorded pneumococcal 23-valent vaccine 4 07/18/19 Given pneumococcal 23-valent vaccine 03/07/14 Recorded tetanus/diphtheria/pertussis, acel(Tdap) 05/07/09 Given 1Early/Late Reason: Early/Late Reason: Med Not Available 2Result Comment: [05/15/2018] [id number] 3Result Comment: [id number] 4Result Comment: [id number] Medications albuterol CFC free 90 mcg/inh inhalation aerosol 180 mcg, 2, puffs, Inhalation, Every 4 hours, PRN, Refills 0, Maintenance, 05/17/22 11:07:00 EST, Inhaler Start Date: 05/17/22 Status: Ordered Bariatric wheelchair with standard leg rests Bariatric wheelchair with standard leg rests, See Instructions, # 1 each, Refills 0, Tot. Refills 0, Maintenance, 22 x 16 standard bariatric wheelchair wt 157.7 ht 191 cm Dx: G89.4, 189, E66.01, 127.20 nessa 99 MO, 12/18/21 14:53:00 EDT, Supply Start Date: 12/18/21 Status: Ordered Cardizem CD 360 mg/24 hours oral capsule, extended release 1 capsule = 360 mg, By Mouth, Daily, # 90 capsule, 3 Refills, Maintenance, 10/16/21 4:17:00 EDT, [place], [facility], Partial fill upon patient request if the prescription is for a schedule II opioid drug., 191, cm, 08/28/21 11:32:00 E... Start Date: 10/16/21 Stop Date: 04/14/22 Status: Ordered Cymbalta 30 mg oral enteric coated capsule 2 capsule = 60 mg, By Mouth, 2 times a day, 0 Refills, Maintenance, 02/05/22 18:23:00 EDT, Partial fill upon patient request if the prescription is for a schedule II opioid drug. Start Date: 02/05/22 Status: Ordered Deltec Cozmo Glucometer See Instructions, # 1 each, Maintenance, check blood sugar levels before meals every day 3 times a day and at bedtime., 07/21/21 11:42:00 EST, Supply, 190, cm, 04/03/21 10:25:00 EDT, Height, 153, kg,01/14/21 23:22:00 EDT, Dry Weight Start Date: 07/21/21 Status: Ordered Eliquis 5 mg oral tablet 1 tablet, By Mouth, 2 times a day, # 60 tablet, 11 Refills, Maintenance, 05/28/22 16:36:00 EST, [facility], 191, cm, 02/11/22 11:45:00 EDT, Height, 170, kg, 02/05/22 22:35:00 EDT, Dry Weight Start Date: 05/28/22 Status: Ordered Flonase 50 mcg/inh nasal spray 1 sprays, Nares, Both, 2 times a day, # 16 Gm, 11 Refills, Maintenance, 07/08/20 16:47:00 EST, [place], [facility], 1 sprays Nares, Both 2 times a day, 191, cm, 06/24/20 13:40:00 EST, Height, 193.5, kg, 05/21/19 5:38:00 EST, Dry Weight Start Date: 07/08/20 Status: Ordered FreeStyle Christin 2 Monitor See Instructions, # 1 each, Maintenance, DM 2 E11.9, 06/15/22 12:28:00 EST, Supply, 191, cm, 02/11/22 11:45:00 EDT, Height, 170, kg, 02/05/22 22:35:00 EDT, Dry Weight Start Date: 06/15/22 Status: Ordered FreeStyle Christin 2 Sensors See Instructions, # 2 each, Refills 11, Tot. Refills 11, Maintenance, E11.9 DM2, 06/15/22 12:28:00 EST, Supply, 191, cm, 02/11/22 11:45:00 EDT, Height, 170, kg, 02/05/22 22:35:00 EDT, Dry Weight Start Date: 06/15/22 Status: Ordered gabapentin 400 mg oral capsule 1, capsule, By Mouth, 5 times a day, HOLD FOR SEDATION., # 150 capsule, Refills 2, Maintenance, 04/02/22 5:55:00 EDT, Route to Pharmacy Electronically, [facility], 191, cm, 02/11/22 11:45:00 EDT, Height, 170, kg, 02/05/22 22:35:00 EDT, . Start Date: 04/02/22 Status: Ordered hydrOXYzine hydrochloride 25 mg oral tablet 1 tablet, By Mouth, 3 times a day, # 84 tablet, 5 Refills, Maintenance, 06/11/22 11:15:00 EST, [facility], 191, cm, 02/11/22 11:45:00 EDT, Height, 170, kg, 02/05/22 22:35:00 EDT, DryWeight Start Date: 06/11/22 Status: Ordered Imdur 60 mg oral tablet, extended release 60 mg, By Mouth, Daily in AM, Refills 0, Maintenance, 02/05/22 18:25:00 EDT, Partial fill upon patient request if the prescription is for a schedule II opioid drug. Start Date: 02/05/22 Status: Ordered insulin lispro 100 u/ml subcutaneous injection = 0 units, Subcutaneous Injection, 3 times a day before meals, <150: zero insulin, 151-200: 2 units, 201-250: 4 units, 251-300: 6 units, 301-350: 8 units, > 350: 10 units & Call PCP, # 30 mL, 0 Refills, Maintenance, 08/16/22 3:50:00 EDT, Solution, Pa... Start Date: 08/16/22 Status: Ordered Insulin Syringe, BD Ultra-Fine 0.3 cc 31 G x 8 mm (5/16in) See Instructions, # 100 each, Refills 5, Tot. Refills 5, Maintenance, use as directed for Type 2 Diabetes Mellitus, 07/21/21 11:42:00 EST, Supply, 190, cm, 04/03/21 10:25:00 EDT, Height, 153, kg, 01/14/21 23:22:00 EDT, Dry Weight Start Date: 07/21/21 Stop Date: 01/17/22 Status: Ordered Lipitor 80 mg oral tablet 1 tablet = 80 mg, By Mouth, Daily, 0 Refills, Maintenance, 02/05/22 18:29:00 EDT, Partial fill uponpatient request if the prescription is for a schedule II opioid drug. Start Date: 02/05/22 Status: Ordered loperamide 2 mg oral tablet 1 tablet, By Mouth, Every 4 hours, PRN NEEDED FOR LOOSE STOOL, # 60 tablet, 1 Refills, Maintenance, 03/09/22 9:51:00 EDT, [facility], 191, cm, 02/11/22 11:45:00 EDT, Height, 170, kg, 02/05/22 22:35:00 EDT, Dry Weight Start Date: 03/09/22 Status: Ordered LORazepam 2 mg oral tablet 1 tablet = 2 mg, By Mouth, 3 times a day, PRN for anxiety, # 90 tablet, 2 Refills, Maintenance, 06/11/21 16:39:00 EST, Tablet, [facility], 190, cm, 04/03/21 10:25:00 EDT, Height, 153, kg, 01/14/21 23:22:00 EDT, Dry Weight Start Date: 06/11/21 Status: Ordered metFORMIN 1000 mg oral tablet 1 tablet = 1,000 mg, By Mouth, Daily, # 90 tablet, 1 Refills, Maintenance, 03/15/22 18:36:00 EDT, [facility], 191, cm, 02/11/22 11:45:00 EDT, Height, 170, kg, 02/05/22 22:35:00 EDT, Dry Weight Start Date: 03/15/22 Status: Ordered Metoprolol Succinate ER 50 mg oral tablet, extended release 1 tablet, By Mouth, Daily, # 90 tablet, 1 Refills, Maintenance, 07/23/22 4:11:00 EST, [facility], 191, cm, 02/11/22 11:45:00 EDT, Height, 170, kg, 02/05/22 22:35:00 EDT, Dry Weight Start Date: 07/23/22 Status: Ordered Narcan 4 mg/0.1 mL nasal spray = 4 mg, Naris, Left, Once, PRN overdose, # 2 each, 0 Refills, Soft Stop, 09/24/21 18:09:00 EDT, [facility], Partial fill upon patient request if the prescription is for a schedule IIopioid drug., 191, cm, 08/28/21 11:32:00 EDT, Height, 1... Start Date: 09/24/21 Status: Ordered One Touch Fine Point Lancets See Instructions, # 200 each, Refills 5, Tot. Refills 5, Maintenance, use as directed for Type 2 Diabetes Mellitus, 07/21/21 11:43:00 EST, Supply, 190, cm, 04/03/21 10:25:00 EDT, Height, 153, kg, 01/14/21 23:22:00 EDT, Dry Weight Start Date: 07/21/21 Stop Date: 01/17/22 Status: Ordered oxyCODONE 5 mg oral tablet 5 mg, 1, tablet, By Mouth, 2 times a day, PRN, Dx: Chronic widespread pain syndrome; may fill for less than full amount APPOINTMENT NEEDED FOR ADDITIONAL REFILLS, # 56 tablet, Refills 0, Tot. Refills0, Maintenance, Pain , Severe, 06/25/22 15:26:00 E... Start Date: 06/25/22 Status: Ordered pantoprazole 40 mg oral delayed release tablet 1 tablet, By Mouth, Daily, # 28 tablet, 2 Refills, Maintenance, 06/10/22 15:34:00 EST, 191, cm, 02/11/22 11:45:00 EDT, Height, 170, kg, 02/05/22 22:35:00 EDT, Dry Weight Start Date: 06/10/22 Status: Ordered phenytoin 100 mg oral capsule, extended release See Instructions, TAKE 2 CAPSULES BY MOUTH IN THE MORNING (THIS IS A DOSE INCREASE ) & TAKE 4 CAPSULES IN THE EVENING, # 360 capsule, 2 Refills, Maintenance, 05/17/22 11:00:00 EST, [facility], 191, cm, 02/11/22 11:45:00 EDT, Height, 170,... Start Date: 05/17/22 Status: Ordered QUEtiapine 100 mg oral tablet TAKE ONE TABLET BY MOUTH EVERY DAY AT BEDTIME NEEDED FOR SLEEP, MAY TAKE 1 EXTRA TABLET NEEDED FOR INSOMNIA Start Date: 05/17/22 Status: Ordered QUEtiapine 200 mg oral tablet 200 mg, 1, tablet, TAKE ONE TABLET BY MOUTH TWICE A DAY Start Date: 05/17/22 Status: Ordered torsemide 20 mg oral tablet 2 tablet, By Mouth, Daily, # 60 tablet, 5 Refills, Maintenance, 07/08/22 10:43:00 EST, [facility], 191, cm, 02/11/22 11:45:00 EDT, Height, 170, kg, 02/05/22 22:35:00 EDT, Dry Weight Start Date: 07/08/22 Status: Ordered traZODone 50 mg oral tablet 100 mg, 2, tablet, By Mouth, Daily at bedtime, PRN, TAKE 2 TABLETS BY MOUTH EVERY NIGHT., Sleep Start Date: 08/16/22 Status: Ordered Problem List Condition Confirmation Course Effective Dates Status H ealth Status Informant Acquired lymphedema of leg Confirmed Active Morbid obesity with BMI of 50.0-59.9, adult Confirmed Active Chronic diarrhea Confirmed Active Chronic widespread pain disorder Confirmed Active Diabetes mellitus with neuropathy Confirmed Active Long-term current use of anticonvulants (phenytoin and oxcarbazepine) Confirmed Active Epilepsy Confirmed Active History of TIA (transient ischemic attack) Confirmed Active Heart failure with preserved left ventricular function (HFpEF) Confirmed Active History of COVID-19 Confirmed Active History of pericarditis Confirmed Active History of urinary tract infection Confirmed Active Hyperglycemia Confirmed Active Hyperlipidemia Confirmed Active Hypertension Confirmed Active Iron deficiency anemia Confirmed Active Mood disorder NOS Confirmed Active Multiple complaints Confirmed Active Obstructive sleep apnea Confirmed Active Paroxysmal A-fib Confirmed Active Pericarditis Confirmed Active Painful peripheral neuropathy - NOS Confirmed Active [facility] prescription benzodiazepine use Confirmed Active PTSD - Post-traumatic stress disorder Confirmed Active Limited mobility Confirmed Active Severe obesity Confirmed Active Non-insulin dependent type 2 diabetes mellitus Confirmed Active Social History Social History Type Response Smoking Status Never entered on: 05/15/18 Sex Patient Care team information Care Team Personnel Name: Gladis Carrizales RN Position: [facility] RN Member Role: Primary Care Nurse Name: Ebony Santoyo RN Position: [facility] RN Member Role: Primary Care Nurse Name: Siobhan Ko RN Position: [facility] RN Member Role: Primary Care Nurse Name: Evette Marrero Position: [facility] RN Supv Member Role: Primary Care Nurse Name: Aviva Howard RN Position: [facility] RN Member Role: Primary Care Nurse Name: Hilda Doyle RN Position: [facility] RN Supv Member Role: Primary Care Nurse Name: Kimmy Ahumada NP Position: [facility] Associate Professional Member Role: Primary Care Nurse Address: Address: [address] [place] [id number]- Name: Bruce Mccurdy MD Position: [facility] Renal MD Member Role: Lifetime Consulting Physician Address: Address: [address] [place] [address], [address] [facility] [place] [address]- Name: Regis Huang RN Position: [facility] RN Member Role: Primary Care Nurse Name: JO GONZALEZ RN Position: [facility] RN Member Role: Primary Care Nurse Name: Mirella Mabry RN Position: [facility] RN Member Role: Primary Care Nurse Name: Shelby Luna RN Position: [facility] RN Member Role: Primary Care Nurse Name: Sarina Camejo RN Position: [facility] RN Member Role: Primary Care Nurse Name: Lachelle Shine RN Position: [facility] RN Member Role: Primary Care Nurse Name: Leilani Lerma RN Position: [facility] HBO Wound Member Role: Primary Care Nurse Name: Sandrita Portillo LPN Position: [facility] RN Member Role: Primary Care Nurse Name: Corina Munoz RN Position: [facility] RN Member Role: Primary Care Nurse Name: Vania Hernandez Position: [facility] RN Member Role: Primary Care Nurse Name: Mukul Dougherty RN Position: [facility] RN Member Role: Primary Care Nurse Name: Hammad Gambino RN Position: [facility] RN Member Role: Primary Care Nurse Name: Kenia Rao RN Position: [facility] RN Member Role: Primary Care Nurse Name: Michele Villavicencio RN Position: [facility] RN Member Role: Primary Care Nurse Name: Brown Parada MD Position: [facility] Primary Care Physician Member Role: PCP Address: Address: [address] [place] [id number]- Name: Charlette Lopez RN Position: [facility] RN Member Role: Primary Care Nurse Name: Elena Sheikh RN Position: [facility] RN Member Role: Primary Care Nurse Name: Theodora Serna RN Position: [facility] PCO RN Member Role: Primary Care Nurse Name: Yang Silva RN Position: [facility] RN Member Role: Primary Care Nurse Name: Xiomara Mario RN Position: [facility] RN Member Role: Primary Care Nurse Name: Meg Norman RN Position: [facility] RN Member Role: Primary Care Nurse Name: Latanya Garza RN Position: [facility] RN Member Role: Primary Care Nurse Name: Jaimie Gibson RN Position: [facility] RN Member Role: Primary Care Nurse Name: Buffy Schroeder RN Position: [facility] RN Member Role: Primary Care Nurse Name: Lidia Bacon RN Position: [facility] RN Member Role: Primary Care Nurse Name: Carmen Bruner RN Position: [facility] RN Member Role: Primary Care Nurse Name: Kirill Mccartney RN Position: [facility] RN Member Role: Primary Care Nurse Name: Chacha Hassan RN Position: [facility] RN Member Role: Primary Care Nurse Name: Earlene Grayson RN Position: [facility] SN RN Member Role: Primary Care Nurse Name: Cem Carroll MD Position: [facility] Renal MD Member Role: Lifetime Consulting Physician Address: Address: [address] [place] [address] [facility] [address] Name: Dmitry Chua RN Position: [facility] RN Member Role: Primary Care Nurse Name: Aretha Duke RN Position: [facility] RN Member Role: Primary Care Nurse Name: Shilpa Richardson RN Position: [facility] RN Member Role: Primary Care Nurse Name: Eusebia Hassan RN Position: [facility] RN Member Role: Primary Care Nurse Name: Arsalan Cai RN Position: [facility] RN Member Role: Primary Care Nurse Care Team Related Persons Name: JIMENEZ BRUNER Address: [address] [place] [address] Name: ANYA DE JESUS Address: [address] [place] [address]
--- OUTSIDE RECORDS SUMMARY | 2022-10-04 17:47 | XMS_ITS | Continuity of Care Document ---
Author Name Unknown Organization [facility] Address [address] [place] [address]- Care Team Providers Care Director Of Institutional Research Name Role Phone Sanaz WILKINS, Matheus Castro Primary Care Physician [phone] Encounter [facility] Date(s): 04/16/21 - 05/16/21 [facility] Adult [address] [place] [address]- Allergies, Adverse Reactions, Alerts Substance Reaction Severity Status clindamycin Hives Active penicillin rash Active aspirin Active Bee Stings Active Contrast Dye urticaria Active Latex anaphylaxis Active antivenin (black spider) Active Immunizations Given and Recorded Vaccine Date Status Refusal Reason SARS-CoV-2 (COVID-19) mRNA-1273 vaccine 01/13/21 G iven tetanus-diphtheria toxoids (Td) 1 07/18/19 Given pneumococcal 23-valent vaccine 2 07/18/19 Given influenza virus vaccine, inactivated 3 05/15/18 Gi kyle tetanus/diphtheria/pertussis, acel(Tdap) 05/07/09 Given 1Result Comment: [id number] 2Result Comment: [id number] 3Result Comment: [05/15/2018] [id number] Medications acetaminophen 325 mg oral tablet 650 mg, By Mouth, Every 4 hours, PRN, Refills 0, Maintenance, Pain , Mild, 12/12/19 13:05:00 EDT Start Date: 12/12/19 Status: Ordered apixaban 5 mg oral tablet 1 tablet = 5 mg, By Mouth, 2 times a day, # 60 tablet, 3 Refills, Maintenance, 01/13/21 15:09:00 EDT, Tablet, [facility], Partial fill upon patient request if the prescription is for a schedule II opioid drug., 190, cm, 01/13/21 7:49:00... Start Date: 01/13/21 Stop Date: 05/13/21 Status: Ordered atorvastatin 80 mg oral tablet 1 tablet = 80 mg, By Mouth, Daily, BUBBLE PACK, # 28 tablet, 5 Refills, Maintenance, 02/23/21 16:53:00 EDT, Tablet, [facility], Partial fill upon patient request, 190, cm, 01/23/21 8:35:00 EDT, Height, 153, kg, 01/14/21 23:22:00 EDT, Dry W... Start Date: 02/23/21 Status: Ordered Cardizem CD 360 mg/24 hours oral capsule, extended release 1 capsule = 360 mg, By Mouth, Daily, # 30 capsule, 5 Refills, Maintenance, 03/27/21 12:31:00 EDT, CR Capsule, [facility], Partial fill upon patient request if the prescription is fora schedule II opioid drug., 190, cm, 01/23/21 8:35:00 E... Start Date: 03/27/21 Stop Date: 09/23/21 Status: Ordered colchicine 0.6 mg oral tablet 0.6 mg, 1, tablet, By Mouth, 2 times a day, # 60 tablet, Refills 1, Tot. Refills 1, Maintenance, 01/13/21 15:09:00 EDT, Route to Pharmacy Electronically, [facility], Partial fill upon patient request if the prescription is for a schedule... Start Date: 01/13/21 Stop Date: 03/14/21 Status: Ordered cyanocobalamin 1000 mcg oral tablet, extended release 1 tablet = 1,000 mcg, By Mouth, Daily, BUBBLE PACK, # 28 tablet, 5 Refills, Maintenance, 02/23/21 16:53:00 EDT, [facility], 190, cm, 01/23/21 8:35:00 EDT, Height, 153, kg, 01/14/21 23:22:00 EDT, Dry Weight Start Date: 02/23/21 Status: Ordered digoxin 0.25 mg oral tablet 0.25 mg, 1, tablet, By Mouth, Daily, # 30 tablet, Refills 0, Tot. Refills 0, Maintenance, 01/13/21 15:09:00 EDT, Route to Pharmacy Electronically, [facility], Partial fill upon patient request if the prescription is for a schedule II opi... Start Date: 01/13/21 Stop Date: 02/12/21 Status: Ordered duloxetine 30 mg oral enteric coated capsule 1 capsule, By Mouth, 2 times a day, BUBBLE PACK, # 56 Unknown, 5 Refills, Maintenance, 02/23/21 16:53:00 EDT, [facility], 190, cm, 01/23/21 8:35:00 EDT, Height, 153, kg, 01/14/21 23:22:00 EDT, Dry Weight Start Date: 02/23/21 Status: Ordered Flomax 0.4 mg oral capsule 0.4 mg, 1, capsule, By Mouth, Daily at bedtime, # 30 capsule, Refills 0, Tot. Refills 0, Maintenance, 01/18/21 11:37:00 EDT, Route to Pharmacy Electronically, [facility], Partial fill upon patient request if the prescription is for a errol... Start Date: 01/18/21 Status: Ordered Flonase 50 mcg/inh nasal spray 1 sprays, Nares, Both, 2 times a day, # 16 Gm, 11 Refills, Maintenance, 07/08/20 16:47:00 EST, [place], [facility], 1 sprays Nares, Both 2 times a day, 191, cm, 06/24/20 13:40:00 EST, Height, 193.5, kg, 05/21/19 5:38:00 EST, Dry Weight Start Date: 07/08/20 Status: Ordered gabapentin 300 mg oral capsule 300 mg, 1, capsule, By Mouth, 4 times a day, # 120 capsule, Refills 5, Tot. Refills 5, Maintenance,03/23/21 16:59:00 EDT, Route to Pharmacy Electronically, [facility], 190, cm, 01/23/21 8:35:00 EDT, Height, 153, kg, 01/14/21 23:22:00 EDT... Start Date: 03/23/21 Status: Ordered home pulse oximeter home pulse oximeter, See Instructions, # 1 each, Refills 0, Tot. Refills 0, Maintenance, dx: [id number], oxygen dependence Z99.81, 01/27/21 11:50:00 EDT, Supply Start Date: 01/27/21 Status: Ordered hydrOXYzine hydrochloride 25 mg oral tablet 1 tablet, By Mouth, 3 times a day, BUBBLE PACK, # 84 tablet, 5 Refills, Maintenance, 02/23/21 16:53:00 EDT, [facility], 190, cm, 01/23/21 8:35:00 EDT, Height, 153, kg, 01/14/21 23:22:00 EDT, Dry Weight Start Date: 02/23/21 Status: Ordered isosorbide mononitrate 30 mg oral tablet, extended release 30 mg, 1, tablet, By Mouth, Daily in AM, # 30 tablet, Refills 0, Tot. Refills 0, Maintenance, 01/18/21 11:37:00 EDT, Route to Pharmacy Electronically, [facility], Partial fill upon patient request if the prescription is for a schedule II... Start Date: 01/18/21 Status: Ordered loperamide 2 mg oral tablet 1 tablet = 2 mg, By Mouth, Every 4 hours, PRN as needed for loose stool, not to exceed 16 mg/day, #100 tablet, 0 Refills, Maintenance, 04/28/20 13:13:00 EST, Tablet, [facility], Partial fill upon patient request, 191, cm, 12/27/19 12:20:... Start Date: 04/28/20 Status: Ordered LORazepam 2 mg oral tablet 1 tablet = 2 mg, By Mouth, 3 times a day, PRN for anxiety, # 90 tablet, 2 Refills, Maintenance, 03/23/21 16:59:00 EDT, Tablet, [facility], 190, cm, 01/23/21 8:35:00 EDT, Height, 153,kg, 01/14/21 23:22:00 EDT, Dry Weight Start Date: 03/23/21 Status: Ordered metFORMIN 1000 mg oral tablet 1 tablet, By Mouth, Daily in AM, BUBBLE PACK, # 28 tablet, 5 Refills, Maintenance, 02/23/21 16:53:00 EDT, [facility], 190, cm, 01/23/21 8:35:00 EDT, Height, 153, kg, 01/14/21 23:22:00EDT, Dry Weight Start Date: 02/23/21 Status: Ordered Metoprolol Succinate ER 50 mg oral tablet, extended release 1 tablet = 50 mg, By Mouth, Daily, # 30 tablet, 5 Refills, Soft Stop, 03/23/21 16:59:00 EDT, [facility], 190, cm, 01/23/21 8:35:00 EDT, Height, 153, kg, 01/14/21 23:22:00 EDT, Dry Weight Start Date: 03/23/21 Stop Date: 05/22/21 Status: Ordered phenytoin 100 mg oral capsule, extended release See Instructions, TAKE 2 CAPSULES BY MOUTH IN THE MORNING & TAKE 4 CAPSULES IN THE EVENING. BUBBLE PACK, # 168 Unknown, 5 Refills, 02/23/21 16:53:00 EDT, [facility], 190, cm, 01/23/21 8:35:00 EDT, Height, 153, kg, 01/14/21 23:22:00 EDT, D... Start Date: 02/23/21 Status: Ordered prazosin 5 mg oral capsule 5 mg, 1, capsule, By Mouth, Daily at bedtime, BUBBLE PACK, # 28 capsule, Refills 4, Tot. Refills 4,Maintenance, 04/02/21 8:22:00 EDT, Route to Pharmacy Electronically, [facility], 190, cm, 01/23/21 8:35:00 EDT, Height, 153, kg, 01/14/21... Start Date: 04/02/21 Status: Ordered ProAir HFA 90 mcg/inh inhalation aerosol 2 puffs, Inhalation, Every 4 hours, PRN Wheezing/Shortness of Breath, # 1 each, 5 Refills, Maintenance, 06/27/20 16:56:00 EST, [facility], Partial fill upon patient request if the prescription is for a schedule II opioid drug., 2 puffs In... Start Date: 06/27/20 Status: Ordered Protonix 40 mg oral delayed release tablet 1 tablet = 40 mg, By Mouth, Daily, BUBBLE PACK, # 28 tablet, 4 Refills, Maintenance, 04/02/21 8:22:00 EDT, EC Tablet, 190, cm, 01/23/21 8:35:00 EDT, Height, 153, kg, 01/14/21 23:22:00 EDT, Dry Weight Start Date: 04/02/21 Status: Ordered QUEtiapine 50 mg oral tablet 1 tablet, By Mouth, Daily, BUBBLE PACK, # 28 Unknown, 5 Refills, Maintenance, 02/23/21 16:53:00 EDT, [facility], 190, cm, 01/23/21 8:35:00 EDT, Height, 153, kg, 01/14/21 23:22:00 EDT,Dry Weight Start Date: 02/23/21 Status: Ordered torsemide 20 mg oral tablet 2 tablet = 40 mg, By Mouth, Daily, # 60 tablet, 5 Refills, Maintenance, 05/01/21 8:30:00 EST, Tablet, [facility], Partial fill upon patient request if the prescription is for a schedule II opioid drug., 190, cm, 04/03/21 10:25:00 EDT, Hei... Start Date: 05/01/21 Stop Date: 10/28/21 Status: Ordered traZODone 50 mg oral tablet 100 mg, 2, tablet, By Mouth, Daily at bedtime, BUBBLE PACK, # 56 tablet, Refills 5, Tot. Refills 5,Maintenance, 02/23/21 16:53:00 EDT, Route to Pharmacy Electronically, [facility], 190, cm, 01/23/21 8:35:00 EDT, Height, 153, kg, 01/14/21... Start Date: 02/23/21 Status: Ordered Vitamin D3 2000 intl units oral tablet 1 tablet, By Mouth, Daily, BUBBLE PACK, # 28 Unknown, 5 Refills, Maintenance, 02/23/21 16:53:00 EDT, [facility], 190, cm, 01/23/21 8:35:00 EDT, Height, 153, kg, 01/14/21 23:22:00 EDT,Dry Weight Start Date: 02/23/21 Status: Ordered Problem List Condition Effective Dates Status Health Status Inform ant Acquired lymphedema of leg(Confirmed) Active Morbid obesity with BMI of 5 0.0-59.9, adult(Confirmed) Active Chronic diarrhea(Confirmed) Active Chronic widespread pain disorder(Confirmed) Active Diabetes mellitus with neuropathy(Confirmed) Active Long-term current use of anticonvulants (phenytoin and oxcarbazepine)(Confirmed) Active Epilepsy(Confirmed) Active History of TIA (transient is chemic attack)(Confirmed) Active Heart failure with preserved left ventricular function (HFpEF)(Confirmed) Active Hyperlipidemia(Confirmed) Active Hypertension(Confirmed) Active Iron deficiency anemia(Confirmed) Active Mood disorder NOS(Confirmed) Active Obstructive sleep apnea(Confirmed) Active Paroxysmal A-fib(Confirmed) Active Pericarditis(Confirmed) Active Painful peripheral neuropath y - NOS(Confirmed) Active alf prescription benzo diazepine use(Confirmed) Active Limited mobility(Confirmed) Active Non-insulin dependent type 2 diabetes mellitus(Confirmed) Active Social History Social History Type Response Smoking Status Never entered on: 05/15/18 Sex
--- OUTSIDE RECORDS SUMMARY | 2022-10-04 17:47 | XMS_ITS | Continuity of Care Document ---
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 Phone Tal WILKINS, Brown Paz Primary Care Physician Encounter [facility] Date(s): 08/26/22 - 09/25/22 [facility], [place], operated [facility] [address] [place] [address]- Attending Physician: Admjane, [id number] Admitting Physician: Admtr, Raji Referring Physician: Admtr, [id number] Allergies, Adverse Reactions, Alerts Substance Reaction Severity [...] Reason: Med Not Available 2Result Comment: [05/15/2018] [id number] 3Result Comment: [id number] 4Result Comment: [id number] Medications albuterol CFC free 90 mcg/inh inhalation [...] capsule, 3 Refills, Maintenance, 10/16/21 4:17:00 EDT, [facility], [facility], Partial fill [...] Gm, 11 Refills, Maintenance, 07/08/20 16:47:00 EST, [facility], [facility], 1 sprays [...] mL, 0 Refills, Maintenance, 08/16/22 3:50:00 EDT, Lydia Pa... Start Date: 08/16/22 Status: Ordered Insulin [...] tablet, 1 Refills, Maintenance, 03/09/22 9:51:00 EDT, [facility], 191, cm, 02/11/22 11:45:00 EDT, Height, 170, kg, 02/05/22 22:35:00 EDT, Dry Weight Start Date: 03/09/22 Status: Ordered LORazepam 2 mg oral tablet 1 tablet = 2 mg, By Mouth, 3 times a day, PRN for anxiety, # 90 tablet, 2 Refills, Maintenance, 06/11/21 16:39:00 EST, Tablet, [facility], 190, cm, 04/03/21 10:25:00 EDT, Height, 153, kg, 01/14/21 23:22:00 EDT, Dry Weight Start Date: 06/11/21 Status: Ordered metFORMIN 1000 mg oral tablet 1 tablet = 1,000 mg, By Mouth, Daily, # 90 tablet, 1 Refills, Maintenance, 03/15/22 18:36:00 EDT, [facility], 191, cm, 02/11/22 11:45:00 EDT, Height, 170, kg, 02/05/22 22:35:00 EDT, Dry Weight Start Date: 03/15/22 Status: Ordered Metoprolol Succinate ER 50 mg oral tablet, extended release 1 tablet, By Mouth, Daily, # 90 tablet, 1 Refills, Maintenance, 07/23/22 4:11:00 EST, [facility], 191, cm, 02/11/22 11:45:00 EDT, Height, 170, kg, 02/05/22 22:35:00 EDT, Dry Weight Start Date: 07/23/22 Status: Ordered Narcan 4 mg/0.1 mL nasal spray = 4 mg, Naris, Left, Once, PRN overdose, # 2 each, 0 Refills, Soft Stop, 09/24/21 18:09:00 EDT, [facility], Partial fill [...] capsule, 2 Refills, Maintenance, 05/17/22 11:00:00 EST, [facility], 191, cm, 02/11/22 11:45:00 EDT, [...] Refills, Maintenance, 07/08/22 10:43:00 EST, [facility], 191, [...] Painful peripheral neuropathy - NOS Confirmed Active 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 benzodiazepine use Confirmed Active PTSD - Post-traumatic stress disorder Confirmed Active Limited mobility Confirmed Active Severe obesity Confirmed Active Non-insulin dependent type 2 diabetes mellitus Confirmed Active Social History Social History Type Response Smoking Status Never entered on: 05/15/18 Sex Note * Event Display: Laboratory Result Scanned Authored Date: * Event Display: Non BH Lab Results Authored Date: * Event Display: Non BH Lab Results Authored Date: * Event Display: Non BH Lab Results Authored Date: * Event Display: Cardiology Office Note, Non-BH Authored Date: * Event Display: X-Ray Chest, Non- BH Authored Date: * Event Display: Cardiology Office Note, Non-BH Authored Date: * Event Display: X-Ray Knee, Non- BH Authored Date: * Event Display: X-Ray Hand/Wrist, Non- BH Authored Date: Hospital Progress note * Dali Patel: PERFORM, SIGN, VERIFY Event Display: Progress Note Hospital Authored Date: Patient: LEON BRUNER Age: 58 years Sex: Male : 1960 Associated Diagnoses: None Author: Dali Patel Overnight Events & Current Issues No complaints renal function improving. No complaints of chest pain Review of Systems Review of Systems Constitutional: no chills, no fever. Respiratory: no shortness of breath. Cardiovascular: no peripheral edema, no chest pressure. Review / Management MEDICATION LIST (Selected) Outpatient Medications Ordered 0.9% NaCL 1000 mL: 1,000 mL, Infusion, IV Infusion, 1,000 mL, 75 mL/hr, Infuse over 13.3 hr, Continue until D/C'd Yes, Routine, 05/21/19 11:59:00 EST, 3.03, m2 Albuterol 0.083% inhalation diane: 2.5 mg, 3 mL, Inhalation Solution, Neb, Every 4 hours, PRN for Wheezing/Shortness of Breath, Routine, 05/21/19 1:51:00 EST Ceftriaxone Inj: 1 Gm, Injection, IVPB, Every 24 hours, Indicated for: Other:, Routine, 05/21/19 11:00:00 EST Cymbalta Capsule: 30 mg, Capsule, By Mouth, 2 times a day, Routine, 05/21/19 1:13:00 EST Dilantin Capsule: 100 mg, ER Capsule, By Mouth, Daily, Routine, 05/22/19 9:00:00 EST Dilantin Capsule: 200 mg, ER Capsule, By Mouth, Daily at bedtime, Routine, 05/21/19 21:00:00 EST Heparin Inj: 5,000 units, Injection, Subcutaneous Injection, Every 8 hours, Routine, 05/21/19 2:00:00 EST Insulin LISPRO Scale: 3-15 units, Injection, Subcutaneous Injection, 3 times a day before meals, Routine, 05/22/19 7:00:00 EST, Do NOT cover bedtime Glucose unless greater than 300. If greater than 300, call MD for one time dose of Insulin LORazepam 2 mg oral tablet: 2 mg, Tablet, By Mouth, 3 times a day, PRN for Anxiety, Routine, 05/21/19 1:14:00 EST Lidocaine 5% Topical: 1 application, Patch, Topically, Apply to Other, Daily, Routine, 05/21/19 9:00:00 EST Metronidazole Tablet: 500 mg, Tablet, By Mouth, Every 8 hours for 5 days, Indicated for: Intra-abdominal Community Acquired, Routine, 05/23/19 16:00:00 EST, Stop date 05/28/19 15:59:00 EST NaCL 0.9% Flush: 3 mL, Injection, IV Push, Every 8 hours, PRN for Line/Tube Patency, Routine, 05/20/19 23:50:00 EST NaCL 0.9% Flush: 3 mL, Injection, IV Push, Every 8 hours, Routine, 05/21/19 0:00:00 EST Nystatin Powder: 1 application, Powder, Topically, Apply to Other : Affected area, 2 times a day, Routine, 05/21/19 11:08:00 EST OXcarbazepine 300 mg oral tablet: 600 mg, Tablet, By Mouth, 3 times a day, Routine, 05/21/19 9:00:00 EST Ondansetron Inj: 4 mg, Injection, IV Push, Every 6 hours, PRN for Nausea & Vomiting, Routine, 05/21/19 1:07:00 EST QUEtiapine 25 mg oral tablet: 25 mg, Tablet, By Mouth, Daily, Routine, 05/21/19 9:00:00 EST Tylenol 325 mg oral tablet: 650 mg, Tablet, By Mouth, Every 6 hours, PRN for Headache, Temperature Greater than 100.5, Routine, 05/21/19 1:07:00 EST atorvastatin 20 mg oral tablet: 20 mg, Tablet, By Mouth, Daily, Routine, 05/21/19 9:00:00 EST cyanocobalamin 1000 mcg oral tablet: 1,000 mcg, Tablet, By Mouth, Daily, Routine, 05/21/19 9:00:00 EST gabapentin 300 mg oral capsule: 300 mg, Capsule, By Mouth, Daily, Routine, 05/21/19 9:00:00 EST hydrOXYzine hydrochloride 10 mg oral tablet: 25 mg, Tablet, By Mouth, 3 times a day, PRN for Anxiety, Routine, 05/21/19 1:13:00 EST magnesium oxide 400 mg oral tablet: 400 mg, Tablet, By Mouth, Daily, Routine, 05/21/19 9:00:00 EST nitroglycerin 0.4 mg sublingual tablet: 0.4 mg, Tablet, Sublingual, Every 5 minutes, PRN for Chest Pain, Routine, 05/21/19 4:51:00 EST pantoprazole 40 mg oral delayed release tablet: 40 mg, EC Tablet, By Mouth, Daily, Indicated for: GERD, Routine, 05/21/19 9:00:00 EST Prescriptions Prescribed Flonase 50 mcg/inh nasal spray: 1 sprays, Nares, Both, 2 times a day, # 16 Gm, 0 Refills, Maintenance, 05/23/18 10:06:41 EST, [facility], 1 sprays Nares, Both 2 times a day Metoprolol Succinate ER 50 mg oral tablet, extended release: 1 tablet = 50 mg, By Mouth, Daily, # 90 tablet, 3 Refills, Soft Stop, 12/28/18 15:04:25 EDT Vitamin D3 2000 intl units oral tablet: 1 tablet = 2,000 International_Units, By Mouth, Daily, # 90tablet, 3 Refills, Maintenance, 12/28/18 15:00:22 EDT atorvastatin 20 mg oral tablet: 1 tablet = 20 mg, By Mouth, Daily, # 90 tablet, 3 Refills, Soft Stop, 03/14/19 13:58:57 EDT clopidogrel 75 mg oral tablet: 75 mg, 1, tablet, By Mouth, Daily, # 30 tablet, Refills 5, Tot. Refills 5, Maintenance, 01/29/19 17:13:14 EDT, Route to Pharmacy Electronically, [id number], [facility] cyanocobalamin 1000 mcg oral tablet, extended release: 1 tablet = 1,000 mcg, By Mouth, Daily, # 90 tablet, 3 Refills, Maintenance, 12/28/18 15:00:53 EDT furosemide 40 mg oral tablet: 40 mg, 1, tablet, By Mouth, 2 times a day, # 180 tablet, Refills 3, Tot. Refills 3, Maintenance, 03/14/19 13:59:16 EDT, Route to Pharmacy Electronically, [id number], [facility] hydrOXYzine hydrochloride 25 mg oral tablet: 1 tablet = 25 mg, By Mouth, 3 times a day, PRN as needed for anxiety, # 90 tablet, 11 Refills, Maintenance, 03/14/19 13:57:59 EDT, Tablet isosorbide mononitrate 60 mg oral tablet, extended release: 60 mg, 1, tablet, By Mouth, Daily in AM, # 90 tablet, Refills 3, Tot. Refills 3, Soft Stop, 12/28/18 15:10:14 EDT, Route to Pharmacy Electronically, [id number], [facility] #[id number] lisinopril 40 mg oral tablet: See Instructions, # 30 tablet, Refills 5 Tot. Refills 5, TAKE 1 TABLET BY MOUTH EVERY MORNING, [id number] magnesium oxide 400 mg (240 mg elemental magnesium) oral tablet: 1 tablet = 400 mg, By Mouth, Daily, # 30 tablet, 2 Refills, Maintenance, 06/01/18 13:51:50 EST, Tablet, 1 tablet By Mouth Daily metFORMIN 1000 mg oral tablet: See Instructions, TAKE 1 TABLET BY MOUTH EVERY MORNING, # 30 tablet,2 Refills, Soft Stop, 04/09/19 15:10:18 EST pantoprazole 40 mg oral delayed release tablet: 1 tablet = 40 mg, By Mouth, Daily, # 90 tablet, 3 Refills, Maintenance, 03/14/19 13:58:58 EDT, EC Tablet phenytoin 200 mg oral capsule, extended release: See Instructions, TAKE ONE CAPSULE BY MOUTH EVERY MORNING AND TAKE 2 EVERY NIGHT AT BEDTIME, # 90 capsule, 11 Refills, Soft Stop, 03/14/19 13:57:27 EDT spironolactone 25 mg oral tablet: 25 mg, 1, tablet, By Mouth, Daily, # 90 tablet, Refills 3, Tot. Refills 3, Maintenance, 12/28/18 15:03:05 EDT, Route to Pharmacy Electronically, [id number], [facility] #[id number] Documented Medications Documented LORazepam 2 mg oral tablet: 1 tablet = 2 mg, By Mouth, 3 times a day OXcarbazepine 600 mg oral tablet: 1 tablet = 600 mg, By Mouth, 3 times a day QUEtiapine 25 mg oral tablet: 50 mg, 2, tablet, By Mouth, Daily at bedtime, # 30 tablet, Refills 0,Maintenance, 05/21/19 0:45:52 EST duloxetine 30 mg oral enteric coated capsule: 1 capsule = 30 mg, By Mouth, 2 times a day, # 60 capsule, 0 Refills, Maintenance, 12/28/18 15:05:21 EDT, EC Capsule gabapentin 600 mg oral tablet: 1 tablet = 600 mg, By Mouth, 3 times a day, # 270 tablet, 0 Refills,Maintenance, 05/21/19 0:47:29 EST, Tablet lidocaine 5% topical film: APPLY ONE PATCH TO THE KNEE AND APPLY ONE PATCH TO THE LOWER BACK DAILY UTD. prazosin 5 mg oral capsule: 5 mg, 1, capsule, By Mouth, Daily at bedtime traZODone 50 mg oral tablet: 1-2 tablets, By Mouth, Daily at bedtime, PRN, Insomnia Physical Examination Vital Signs Vitals : VITALS 05/25/2019 8:00 EST Temperature 97.4 DegF Temperature Route Oral Heart Rate Monitored 83 bpm Respiratory Rate 20 br/min Systolic Blood Pressure 163 mm Hg H Diastolic Blood Pressure 62 mm Hg Blood pressure sites Arm, left Pulse Pressure 101 mm Hg Oxygen Saturation 95 % Liters per Minute 2 L/min Mode of Delivery (Oxygen) Nasal cannula . General Appearance NAD. HEENT Moist mucous membranes. Cardiac Cardiac: no JVD present. Rhythms: RRR. Abdomen/GI Abdomen: soft, non-tender. Extremities Edema: grade warm, no edema . Results Review 7 Day Results Results Laboratory : LABORATORY 05/25/2019 6:52 EST Sodium 143 mmol/L Potassium 3.6 mmol/L Chloride 102 mmol/L Bicarbonate Level 24 mmol/L Anion Gap 17 BUN 48 mg/dL H Creatinine-Blood 1.7 mg/dL H Estimated GFR, Non 43 ML/MIN/1.73 M2 Estimated GFR, 50 ML/MIN/1.73 M2 Impression and Plan 58 yo gentleman with HFpEF, obesity, HTN, HLD, Diabetes type II, RADHA, here with abdominal pain, found to have acute cholecystitis, JIN and acute hypoxic respiratory failure. Mildly elevated CE (troponin 0.14). Cardiology originally involved for Pre-OP. He is s/p Drain - minimal pain. Patient needs close follow up with Dr. Velasquez in 3-4 weeks, for ischemic assessment prior to gallbladder removal. At this point, no compelling indication to move forward with an invasive procedure like a cath anytime soon, especially in the setting of recent JIN. Consider a Nuclear Stress test as an outpatient prior to Surgery. Patient Care team information Care Team Personnel Name: Tiki Kim RN Position: [facility] RN Member Role: Primary Care Nurse Name: Gladis Carrizales RN Position: [facility] RN Member Role: Primary Care Nurse Name: bEony Santoyo RN Position: [facility] RN Member Role: Primary Care Nurse Name: Siobhan Ko RN Position: [facility] RN Member Role: Primary Care Nurse Name: Evette Marrero Position: [facility] RN Supv Member Role: Primary Care Nurse Name: Claude Zhao RN Position: [facility] RN Member Role: Primary Care Nurse Name: Aviva Howard RN Position: [facility] RN Member Role: Primary Care Nurse Name: Hilda Doyle RN Position: [facility] RN Supv Member Role: Primary Care Nurse Name: Kimmy Ahumada NP Position: [facility] Associate Professional Member Role: Primary Care Nurse Address: Address: [address] [place] [address] Name: Bruce Mccurdy MD Position: [facility] Renal MD Member Role: Lifetime Consulting Physician Address: Address: [address] [place] [address], [address] [facility] [place] [address]- Name: Regis uHang RN Position: [facility] RN Member Role: Primary Care Nurse Name: Miguelina Hallman RN Position: [facility] RN Member Role: Primary Care Nurse Name: Mirella Mabry RN Position: [facility] RN Member Role: Primary Care Nurse Name: Shelby Luna RN Position: [facility] RN Member Role: Primary Care Nurse Name: Sarina Camejo RN Position: S RN Member Role: Primary Care Nurse Name: Lachelle Shine RN Position: [facility] RN Member Role: Primary Care Nurse Name: Leilani Lerma RN Position: [facility] HBO Wound Member Role: Primary Care Nurse Name: Sandrita Portillo LPN Position: [facility] RN Member Role: Primary Care Nurse Name: Corina Munoz RN Position: [facility] RN Member Role: Primary Care Nurse Name: Vania Hernandez Position: [facility] RN Member Role: Primary Care Nurse Name: Mukul Dougherty RN Position: [facility] RN Member Role: Primary Care Nurse Name: Hammad Gambino RN Position: [facility] RN Member Role: Primary Care Nurse Name: Kenia Rao RN Position: [facility] RN Member Role: Primary Care Nurse Name: Aamir Gutierrez RN Position: [facility] RN Member Role: Primary Care Nurse Name: Michele Villavicencio RN Position: [facility] RN Member Role: Primary Care Nurse Name: Brown Parada MD Position: [facility] Primary Care Physician Member Role: PCP Address: Address: [address] [place] [id number] Name: Lionel Gu RN Position: [facility] RN Member Role: Primary Care Nurse Name: Emanuel Levin RN Position: [facility] RN Member Role: Primary Care Nurse Name: Charlette Lopez RN Position: [facility] RN Member Role: Primary Care Nurse Name: Melissa Khanna RN Position: [facility] RN Member Role: Primary Care Nurse Name: Elena Sheikh RN Position: [facility] RN Member Role: Primary Care Nurse Name: Theodora Serna RN Position: [facility] PCO RN Member Role: Primary Care Nurse Name: Yang Silva RN Position: [facility] RN Member Role: Primary Care Nurse Name: Xiomara Mario RN Position: [facility] RN Member Role: Primary Care Nurse Name: Suly Morales RN Position: [facility] RN Member Role: Primary Care Nurse Name: Jazmin Quach RN Position: [facility] RN Member Role: Primary Care Nurse Name: Meg Norman RN Position: [facility] RN Member Role: Primary Care Nurse Name: Latanya Garza RN Position: [facility] RN Member Role: Primary Care Nurse Name: Jaimie Gibson RN Position: [facility] RN Member Role: Primary Care Nurse Name: Buffy Schroeder RN Position: [facility] RN Member Role: Primary Care Nurse Name: Lidia Bacon RN Position: S RN Member Role: Primary Care Nurse Name: Carmen Bruner RN Position: [facility] RN Member Role: Primary Care Nurse Name: Kirill Mccartney RN Position: S RN Member Role: Primary Care Nurse Name: Chacha Hassan RN Position: [facility] RN Member Role: Primary Care Nurse Name: Earlene Grayson RN Position: [facility] SN RN Member Role: Primary Care Nurse Name: Cem Carroll MD Position: [facility] Renal MD Member Role: Lifetime Consulting Physician Address: Address: [address] [place] [address] [facility] [address] Name: Dmitry Chua RN Position: [facility] RN Member Role: Primary Care Nurse Name: Aretha Duke RN Position: [facility] RN Member Role: Primary Care Nurse Name: Shilpa Richardson RN Position: [facility] RN Member Role: Primary Care Nurse Name: Eusebia Hassan RN Position: [facility] RN Member Role: Primary Care Nurse Name: Arsalan Cai RN Position: [facility] RN Member Role: Primary Care Nurse Care Team Related Persons Name: JIMENEZ BRUNER Address: [address] [place] [address] Name: ANYA DE JESUS Address: [address] [place] [address]
--- OUTSIDE RECORDS SUMMARY | 2022-10-04 17:47 | XMS_ITS | Continuity of Care Document ---
Author Name Unknown Organization [facility] Aung lt Address [address] [place] [address]- Care Team Providers Care Electric Knife Operator Name Role Phone Tal WILKINS, Brown Paz Primary Care Physician Encounter [facility] [place] Date(s): 02/02/22 - 03/04/22 [facility] Adult [address] [place] [address]- Allergies, Adverse Reactions, Alerts Substance Reaction Severity [...] Reason: Med Not Available 2Result Comment: [05/15/2018] [id number] 3Result Comment: [id number] 4Result Comment: [id number] Medications apixaban 5 mg oral tablet 1 tablet = 5 mg, By Mouth, 2 times a day, # 60 tablet, 11 Refills, Maintenance, 05/25/21 17:01:00 EST, Tablet, [facility], Partial fill upon patient request if the prescription is for a schedule II opioid drug., 190, cm, 04/03/21 10:25:00... Start Date: 05/25/21 Stop Date: 05/20/22 Status: Ordered Bariatric wheelchair with standard leg [...] capsule, 3 Refills, Maintenance, 10/16/21 4:17:00 EDT, CRCapsule, [facility], Partial fill upon patient request if the prescription is for a schedule II opioid drug., 191, cm, 08/28/21 11:32:00 E... Start Date: 10/16/21 Stop Date: 04/14/22 Status: Ordered cyanocobalamin 1000 mcg oral tablet, extended release 1 tablet = 1,000 mcg, By Mouth, Daily, BUBBLE PACK, # 28 tablet, 5 Refills, Maintenance, 02/23/21 16:53:00 EDT, [facility], 190, cm, 01/23/21 8:35:00 EDT, Height, 153, kg, 01/14/21 23:22:00 EDT, Dry Weight Start Date: 02/23/21 Status: Ordered Cymbalta 30 mg oral enteric coated capsule 1 capsule = 30 mg, By Mouth, Daily, 0 Refills, Maintenance, 02/05/22 18:23:00 EDT, Partial fill upon patient request if the prescription is for a schedule II opioid drug. Start Date: 02/05/22 Status: Ordered Cymbalta 30 mg oral enteric coated capsule 2 capsule = 60 mg, By Mouth, Daily at bedtime, 0 Refills, Maintenance, 02/05/22 18:23:00 EDT, Partial [...] Dry Weight Start Date: 07/21/21 Status: Ordered Flonase 50 mcg/inh nasal spray 1 sprays, Nares, Both, 2 times a day, # 16 Gm, 11 Refills, Maintenance, 07/08/20 16:47:00 EST, [place], [facility], 1 sprays Nares, Both 2 times a day, 191, cm, 06/24/20 13:40:00 EST, Height, 193.5, kg, 05/21/19 5:38:00 EST, Dry Weight Start Date: 07/08/20 Status: Ordered Freestyle Christin 14 day reader Freestyle Christin 14 day reader, See Instructions, # 1 each, Refills 0, Tot. Refills 0, Maintenance, Freestyle Christin 14 day reader, 08/28/21 13:18:00 EDT, Compound, 191, cm, 08/28/21 11:32:00 EDT, Height, 168.5, kg, 08/18/21 22:23:00 EDT, Dry Weight Start Date: 08/28/21 Status: Ordered Freestyle Christin 14 day sensor Freestyle Christin 14 day sensor, See Instructions, # 2 each, Refills 11, Tot. Refills 11, Maintenance, Freestyle Christin 14 day sensor, 08/28/21 13:18:00 EDT, Compound, 191, cm, 08/28/21 11:32:00 EDT, Height, 168.5, kg, 08/18/21 22:23:00 EDT, Dry Weight Start Date: 08/28/21 Status: Ordered gabapentin 400 mg oral capsule 400 mg, 1, capsule, By Mouth, 5 times a day, Increase in dose; hold for sedation, # 150 capsule, Refills 2, Tot. Refills 2, Maintenance, 12/11/21 5:04:00 EDT, Route to Pharmacy Electronically, [facility], Partial fill upon patient request... Start Date: 12/11/21 Status: Ordered hydrOXYzine hydrochloride 25 mg oral tablet 1 tablet, By Mouth, 3 times a day, # 84 tablet, 5 Refills, [facility], 191, cm, 12/10/21 10:57:00 EDT, Height, 168.5, kg, 08/18/21 22:23:00 EDT, Dry Weight Start Date: 12/22/21 Status: Ordered Imdur 60 mg oral tablet, extended release 60 mg, By Mouth, Daily in AM, Refills 0, Maintenance, 02/05/22 18:25:00 EDT, Partial fill upon patient request if the prescription is for a schedule II opioid drug. Start Date: 02/05/22 Status: Ordered Insulin Syringe, BD Ultra-Fine 0.3 cc 31 G x 8 mm (5/16in) See Instructions, # 100 each, Refills 5, Tot. Refills 5, Maintenance, use as directed for Type 2 Diabetes Mellitus, 07/21/21 11:42:00 EST, Supply, 190, cm, 04/03/21 10:25:00 EDT, Height, 153, kg, 01/14/21 23:22:00 EDT, Dry Weight Start Date: 07/21/21 Stop Date: 01/17/22 Status: Ordered Lantus 100 u/ml subcutaneous solution = 20 units, Subcutaneous Injection, Daily at bedtime, # 10 mL, 0 Refills, Maintenance, 07/21/21 11:47:00 EST, Solution, [facility], Partial fill upon patient request if the prescriptionis for a schedule II opioid drug., 190, cm, ... Start Date: 07/21/21 Status: Ordered Lipitor 80 mg oral tablet 1 tablet = 80 mg, By Mouth, Daily, 0 Refills, Maintenance, 02/05/22 18:29:00 EDT, Partial fill uponpatient request if the prescription is for a schedule II opioid drug. Start Date: 02/05/22 Status: Ordered loperamide 2 mg oral tablet 1 tablet, By Mouth, Every 4 hours, PRN NEEDED FOR LOOSE STOOL, # 60 tablet, 0 Refills, Maintenance, 02/05/22 11:34:00 EDT, [facility], 191, cm, 02/02/22 15:50:00 EDT, Height, 168.5, kg, 08/18/21 22:23:00 EDT, Dry Weight Start Date: 02/05/22 Status: Ordered LORazepam 2 mg oral tablet 1 tablet = 2 mg, By Mouth, 3 times a day, PRN for anxiety, # 90 tablet, 2 Refills, Maintenance, 06/11/21 16:39:00 EST, Tablet, [facility], 190, cm, 04/03/21 10:25:00 EDT, Height, 153, kg, 01/14/21 23:22:00 EDT, Dry Weight Start Date: 06/11/21 Status: Ordered metFORMIN 1000 mg oral tablet See Instructions, TAKE ONE TABLET BY MOUTH EVERY DAY IN THE MORNING, # 28 tablet, 5 Refills, Maintenance, 02/17/22 17:34:00 EDT, [facility], 191, cm, 02/11/22 11:45:00 EDT, Height, 170, kg, 02/05/22 22:35:00 EDT, Dry Weight Start Date: 02/17/22 Status: Ordered metFORMIN 1000 mg oral tablet 1 tablet, By Mouth, Daily in AM, BUBBLE PACK, # 28 tablet, 1 Refills, Maintenance, 01/04/22 10:44:00 EDT, [facility], 191, cm, 12/29/21 15:04:00 EDT, Height, 168.5, kg, 08/18/21 22:23:00 EDT, Dry Weight Start Date: 01/04/22 Status: Ordered Metoprolol Succinate ER 50 mg oral tablet, extended release 1 tablet, By Mouth, Daily, # 90 tablet, 1 Refills, Maintenance, 03/04/22 18:59:00 EDT, [facility], 191, cm, 02/11/22 11:45:00 EDT, Height, 170, kg, 02/05/22 22:35:00 EDT, Dry Weight Start Date: 03/04/22 Status: Ordered Narcan 4 mg/0.1 mL nasal spray = 4 mg, Naris, Left, Once, PRN overdose, # 2 each, 0 Refills, Soft Stop, 09/24/21 18:09:00 EDT, [facility], Partial fill upon patient request if the prescription is for a schedule IIopioid drug., 191, cm, 08/28/21 11:32:00 EDT, Height, 1... Start Date: 09/24/21 Status: Ordered NURSING ORDERS NURSING ORDERS, See Instructions, # 1 each, Refills 0, Tot. Refills 0, Maintenance, LEFT ANKLE WOUND-CLEANSE NS, APPLY SILVADENE, DCD DAILY OR NURSING TO REC TX. DM II MONITORING AND COMMUNICATE SUGARS WITH PCP TO TITRATE LANTUS. [phone], 08/28... Start Date: 08/28/21 Status: Ordered One Touch Fine Point Lancets [...] 0, Tot. Refills0, Maintenance, Pain , Severe, 02/14/22 20:31:00 E... Start Date: 02/14/22 Status: Ordered pantoprazole 40 mg oral delayed release tablet 1 tablet, By Mouth, Daily, # 28 tablet, 2 Refills, Maintenance, 02/15/22 21:21:00 EDT, 191, cm, 02/11/22 11:45:00 EDT, Height, 170, kg, 02/05/22 22:35:00 EDT, Dry Weight Start Date: 02/15/22 Status: Ordered phenytoin 100 mg oral capsule, extended release See Instructions, TAKE 2 CAPSULES BY MOUTH IN THE MORNING & TAKE 4 CAPSULES IN THE EVENING. BUBBLE PACK, # 168 Unknown, 5 Refills, 02/23/21 16:53:00 EDT, [facility], 190, cm, 01/23/21 8:35:00 EDT, Height, 153, kg, 01/14/21 23:22:00 EDT, [facility].. Start Date: 02/23/21 Status: Ordered SEROquel 100 mg oral tablet 150 mg, 1.5, tablet, By Mouth, Daily at bedtime, Refills 0, Maintenance, 02/05/22 18:26:00 EDT, Partial fill upon patient request if the prescription is for a schedule II opioid drug. Start Date: 02/05/22 Status: Ordered SEROquel 50 mg oral tablet 1 tablet = 50 mg, By Mouth, Daily at bedtime, PRN Sleep, 0 Refills, Maintenance, 02/05/22 18:28:00 EDT, Partial fill upon patient request if the prescription is for a schedule II opioid drug. Start Date: 02/05/22 Status: Ordered torsemide 20 mg oral tablet 2 tablet = 40 mg, By Mouth, Daily, # 60 tablet, 5 Refills, Maintenance, 08/17/21 9:30:00 EDT, Tablet, [facility], Partial fill upon patient request if the prescription is for a schedule II opioid drug., 190, cm, 07/27/21 12:49:00 Hei. COOKIE.. Start Date: 08/17/21 Stop Date: 02/13/22 Status: Ordered traZODone 50 mg oral tablet 100 mg, 2, tablet, By Mouth, Daily at bedtime, Refills 0, Maintenance, 02/05/22 18:33:00 EDT, Partial fill upon patient request if the prescription is for a schedule II opioid drug. Start Date: 02/05/22 Status: Ordered Vitamin D3 2000 intl units oral tablet 1 tablet, By Mouth, Daily, # 28 tablet, 4 Refills, [facility], 191, cm, 08/28/21 11:32:00 EDT, Height, 168.5, kg, 08/18/21 22:23:00 EDT, Dry Weight Start Date: 10/29/21 Status: Ordered Problem List Condition Confirmation Course [...] preserved left ventricular function (HFpEF) Confirmed Active Hyperglycemia Confirmed Active Hyperlipidemia Confirmed Active Hypertension Confirmed Active Iron deficiency anemia Confirmed Active Mood disorder NOS Confirmed Active Multiple complaints Confirmed Active Obstructive sleep apnea Confirmed Active Paroxysmal A-fib Confirmed Active Pericarditis Confirmed Active Painful peripheral neuropathy - NOS Confirmed Active [facility] prescription benzodiazepine use Confirmed Active Limited mobility Confirmed Active Severe obesity Confirmed Active Non-insulin dependent type 2 diabetes mellitus Confirmed Active Social History Social History Type Response Smoking Status Never entered on: 05/15/18 Sex Patient Care team information Personnel Name: Tal WILKINS, Brown Paz Address: Address: [address] [place] [id number]
--- OUTSIDE RECORDS SUMMARY | 2022-10-04 17:47 | XMS_ITS | Continuity of Care Document ---
Author Name Unknown Organization [facility] Eddie Aung Address [address] [place] [address]- Care Team Providers Care Financial Internship Name Role Phone Matheus Yo MD Primary Care Physician Encounter [facility] Date(s): 05/18/19 - 06/21/19 [facility] Adult [address] [place] [address]- [facility] Attending Physician: Matheus Yo MD Allergies, Adverse Reactions, Alerts Substance Reaction Severity Status clindamycin Hives Active penicillin rash Active aspirin Active Bee Stings Active Contrast Dye urticaria Active Latex anaphylaxis Active antivenin (black spider) Active Immunizations Given and Recorded Vaccine Date Status Refusal Reason influenza virus vaccine, inactivated 1 05/15/18 Gi kyle tetanus/diphtheria/pertussis, acel(Tdap) 05/07/09 Given 1Result Comment: [05/15/2018] [id number] Medications amLODIPine 5 mg oral tablet 5 mg, 1, tablet, By Mouth, Daily, # 30 tablet, Refills 2, Tot. Refills 2, Maintenance, 06/01/19 13:30:00 EST, Print Requisition Start Date: 06/01/19 Status: Ordered atorvastatin 20 mg oral tablet 1 tablet = 20 mg, By Mouth, Daily, # 90 tablet, 3 Refills, Soft Stop, 03/14/19 13:58:57 EDT Start Date: 03/14/19 Status: Ordered clopidogrel 75 mg oral tablet 75 mg, 1, tablet, By Mouth, Daily, # 30 tablet, Refills 5, Tot. Refills 5, Maintenance, 01/29/19 17:13:14 EDT, Route to Pharmacy Electronically, [id number], [facility] Start Date: 01/29/19 Stop Date: 07/28/19 Status: Ordered cyanocobalamin 1000 mcg oral tablet, extended release 1 tablet = 1,000 mcg, By Mouth, Daily, # 90 tablet, 3 Refills, Maintenance, 12/28/18 15:00:53 EDT Start Date: 12/28/18 Status: Ordered duloxetine 30 mg oral enteric coated capsule 1 capsule = 30 mg, By Mouth, 2 times a day, # 60 capsule, 0 Refills, Maintenance, 12/28/18 15:05:21EDT, EC Capsule Start Date: 12/28/18 Status: Ordered Flonase 50 mcg/inh nasal spray 1 sprays, Nares, Both, 2 times a day, # 16 Gm, 0 Refills, Maintenance, 05/23/18 10:06:41 EST, [place], 1 sprays Nares, Both 2 times a day Start Date: 05/23/18 Status: Ordered furosemide 40 mg oral tablet 40 mg, 1, tablet, By Mouth, Daily, # 30 tablet, Refills 3, Tot. Refills 3, Maintenance, 06/01/19 13:24:00 EST, Do Not Route Start Date: 06/01/19 Status: Ordered gabapentin 300 mg oral capsule 300 mg, 1, capsule, By Mouth, Daily, # 30 capsule, Refills 0, Tot. Refills 0, Maintenance, 06/01/1913:28:00 EST, Print Requisition Start Date: 06/01/19 Status: Ordered hydrOXYzine hydrochloride 25 mg oral tablet 1 tablet = 25 mg, By Mouth, 3 times a day, PRN as needed for itching, # 15 tablet, 0 Refills, Maintenance, 06/01/19 13:28:00 EST, Tablet Start Date: 06/01/19 Stop Date: 06/06/19 Status: Ordered isosorbide mononitrate 60 mg oral tablet, extended release 60 mg, 1, tablet, By Mouth, Daily in AM, # 90 tablet, Refills 3, Tot. Refills 3, Soft Stop, 12/28/18 15:10:14 EDT, Route to Pharmacy Electronically, [id number], [id number] Start Date: 12/28/18 Status: Ordered lidocaine 5% topical film APPLY ONE PATCH TO THE KNEE AND APPLY ONE PATCH TO THE LOWER BACK DAILY UTD. Start Date: 06/01/18 Status: Ordered lisinopril 40 mg oral tablet See Instructions, # 30 tablet, Refills 5 Tot. Refills 5, TAKE 1 TABLET BY MOUTH EVERY MORNING, [id number] Start Date: 01/02/19 Status: Ordered LORazepam 2 mg oral tablet 1 tablet = 2 mg, By Mouth, 3 times a day, PRN as needed for anxiety, for 30 days, # 7 tablet, 0 Refills, Acute 07/01/19 13:28:00 EST, 06/01/19 13:28:00 EST, Tablet Start Date: 06/01/19 Stop Date: 07/01/19 Status: Ordered magnesium oxide 400 mg (240 mg elemental magnesium) oral tablet 1 tablet = 400 mg, By Mouth, Daily, # 30 tablet, 2 Refills, Maintenance, 06/01/18 13:51:50 EST, Tablet, 1 tablet By Mouth Daily Start Date: 06/01/18 Status: Ordered metFORMIN 1000 mg oral tablet See Instructions, TAKE 1 TABLET BY MOUTH EVERY MORNING, # 30 tablet, 2 Refills, Soft Stop, 04/09/1915:10:18 EST Start Date: 04/09/19 Status: Ordered Metoprolol Succinate ER 50 mg oral tablet, extended release 1 tablet = 50 mg, By Mouth, Daily, # 90 tablet, 3 Refills, Soft Stop, 12/28/18 15:04:25 EDT Start Date: 12/28/18 Status: Ordered OXcarbazepine 600 mg oral tablet 1 tablet = 600 mg, By Mouth, 3 times a day Start Date: 06/01/18 Status: Ordered oxyCODONE 5 mg oral tablet 5 mg, 1, tablet, By Mouth, Every 4 hours, PRN, Refills 0, Tot. Refills 0, Maintenance, Pain , Severe, 06/11/19 14:34:00 EST, Partial fill upon patient request Start Date: 06/11/19 Status: Ordered pantoprazole 40 mg oral delayed release tablet 1 tablet = 40 mg, By Mouth, Daily, # 90 tablet, 3 Refills, Maintenance, 03/14/19 13:58:58 EDT, EC Tablet Start Date: 03/14/19 Status: Ordered phenytoin 200 mg oral capsule, extended release See Instructions, TAKE ONE CAPSULE BY MOUTH EVERY MORNING AND TAKE 2 EVERY NIGHT AT BEDTIME, # 90 capsule, 11 Refills, Soft Stop, 03/14/19 13:57:27 EDT Start Date: 03/14/19 Status: Ordered prazosin 5 mg oral capsule 5 mg, 1, capsule, By Mouth, Daily at bedtime Start Date: 06/01/18 Status: Ordered QUEtiapine 25 mg oral tablet 50 mg, 2, tablet, By Mouth, Daily at bedtime, # 30 tablet, Refills 0, Maintenance, 05/21/19 0:45:52EST Start Date: 05/21/19 Status: Ordered spironolactone 25 mg oral tablet 25 mg, 1, tablet, By Mouth, Daily, # 90 tablet, Refills 3, Tot. Refills 3, Maintenance, 12/28/18 15:03:05 EDT, Route to Pharmacy Electronically, [id number], [id number] Start Date: 12/28/18 Status: Ordered traZODone 50 mg oral tablet 1-2 tablets, By Mouth, Daily at bedtime, PRN, Insomnia Start Date: 06/01/18 Status: Ordered Vitamin D3 2000 intl units oral tablet 1 tablet = 2,000 International_Units, By Mouth, Daily, # 90 tablet, 3 Refills, Maintenance, 12/28/18 15:00:22 EDT Start Date: 12/28/18 Status: Ordered Problem List Condition Effective Dates Status Health Status Inform ant Morbid obesity with BMI of 5 0.0-59.9, adult(Confirmed) Active Chronic widespread pain disorder(Confirmed) Active Diabetes mellitus with neuropathy(Confirmed) Active Long-term current use of anticonvulants (phenytoin and oxcarbazepine)(Confirmed) Active Epilepsy(Confirmed) Active History of TIA (transient is chemic attack)(Confirmed) Active Heart failure with preserved left ventricular function (HFpEF)(Confirmed) Active Hyperlipidemia(Confirmed) Active Hypertension(Confirmed) Active Iron deficiency anemia(Confirmed) Active Mood disorder NOS(Confirmed) Active Obstructive sleep apnea(Confirmed) Active Painful peripheral neuropath y - NOS(Confirmed) Active nursing home prescription benzo 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
--- OUTSIDE RECORDS SUMMARY | 2022-10-04 17:47 | XMS_ITS | Continuity of Care Document ---
Author Name Unknown Organization [facility] Eddie Aung Address [address] [place] [id number]- Care Team Providers Care Showroom Executive Director Name Role Phone Sanaz WILKINS, Matheus Castro Primary Care Physician Encounter [facility] Date(s): 02/19/20 - 03/20/20 [facility] Adult [address] [place] [address]- [facility] Allergies, Adverse Reactions, Alerts Substance Reaction Severity Status clindamycin Hives Active penicillin rash Active aspirin Active Bee Stings Active Contrast Dye urticaria Active Latex anaphylaxis Active antivenin (black spider) Active Immunizations Given and Recorded Vaccine Date Status Refusal Reason tetanus-diphtheria toxoids (Td) 1 07/18/19 Given pneumococcal 23-valent vaccine 2 07/18/19 Given influenza virus vaccine, inactivated 3 05/15/18 Gi kyle tetanus/diphtheria/pertussis, acel(Tdap) 05/07/09 Given 1Result Comment: [id number] 2Result Comment: [id number] 3Result Comment: [05/15/2018] 58737-278-12 Medications acetaminophen 325 mg oral tablet 650 mg, By Mouth, Every 4 hours, PRN, Refills 0, Maintenance, Pain , Mild, 12/12/19 13:05:00 EDT Start Date: 12/12/19 Status: Ordered atorvastatin 20 mg oral tablet 1 tablet = 20 mg, By Mouth, Daily, # 90 tablet, 1 Refills, Soft Stop, 02/20/20 14:34:00 EDT, [facility], 191, cm, 12/27/19 12:20:00 EDT, Height, 193.5, kg, 05/21/19 5:38:00 EST, Dry Weight Start Date: 02/20/20 Status: Ordered Basic metabolic panel Basic metabolic panel, See Instructions, # 1 each, Refills 0, Tot. Refills 0, Maintenance, To be obtained on Wednesday 12/13. For acute kidney injury (N17.9). Please forward results to Matheus Yo MD., 12/12/19 13:51:00 EDT, Supply Start Date: 12/12/19 Status: Ordered clopidogrel 75 mg oral tablet 75 mg, 1, tablet, By Mouth, Daily, # 30 tablet, Refills 5, Tot. Refills 5, Maintenance, 10/25/19 8:57:00 EDT, Route to Pharmacy Electronically, [facility], 191, cm, 07/23/19 14:30:00EST, Height, 193.5, kg, 05/21/19 5:38:00 EST, Dry Weight Start Date: 10/25/19 Stop Date: 04/22/20 Status: Ordered cyanocobalamin 1000 mcg oral tablet, extended release 1 tablet = 1,000 mcg, By Mouth, Daily, # 30 tablet, 11 Refills, Maintenance, 02/21/20 10:38:00 EDT,[facility], 191, cm, 12/27/19 12:20:00 EDT, Height, 193.5, kg, 05/21/19 5:38:00 EST, Dry Weight Start Date: 02/21/20 Status: Ordered duloxetine 30 mg oral enteric coated capsule 1 capsule = 30 mg, By Mouth, 2 times a day, # 60 capsule, 5 Refills, 07/19/19 15:03:00 EST, [facility], 191, cm, 07/18/19 14:17:00 EST, Height, 193.5, kg, 05/21/19 5:38:00 EST, Dry Weight Start Date: 07/19/19 Status: Ordered famotidine 20 mg oral tablet 20 mg, 1, tablet, By Mouth, 2 times a day, # 60 tablet, Refills 2, Tot. Refills 2, Maintenance, 12/12/19 13:24:00 EDT, Route to Pharmacy Electronically, [facility], 191, cm, 07/23/2013:30:00 EST, Height, 193.5, kg, 05/21/19 5:38:00 EST,... Start Date: 12/12/19 Status: Ordered Flonase 50 mcg/inh nasal spray 1 sprays, Nares, Both, 2 times a day, # 16 Gm, 0 Refills, Maintenance, 05/23/18 10:06:41 EST, [place], 1 sprays Nares, Both 2 times a day Start Date: 05/23/18 Status: Ordered gabapentin 300 mg oral capsule 300 mg, 1, capsule, By Mouth, Daily, APPOINTMENT 02/26/20, # 10 capsule, Refills 0, Tot. Refills 0, Maintenance, 02/22/20 13:44:00 EDT, Route to Pharmacy Electronically, [facility], 191, cm, 12/27/19 12:20:00 EDT, Height, 193.5, kg, ... Start Date: 02/22/20 Status: Ordered hydrOXYzine hydrochloride 25 mg oral tablet 1 tablet = 25 mg, By Mouth, 3 times a day, PRN as needed for itching, # 15 tablet, 0 Refills, Maintenance, 06/01/19 13:28:00 EST, Tablet Start Date: 06/01/19 Stop Date: 06/06/19 Status: Ordered isosorbide mononitrate 60 mg oral tablet, extended release 60 mg, 1, tablet, By Mouth, Daily in AM, # 90 tablet, Refills 0, Tot. Refills 0, Soft Stop, 02/20/20 14:34:00 EDT, Route to Pharmacy Electronically, [facility], 191, cm, 12/27/19 12:20:00 EDT, Height, 193.5, kg, 05/21/19 5:38:00 EST, Dry... Start Date: 02/20/20 Status: Ordered Lasix 40 mg oral tablet 40 mg, 1, tablet, By Mouth, Daily, Refills 0, Maintenance, 12/12/19 13:04:00 EDT Start Date: 12/12/19 Status: Ordered lisinopril 40 mg oral tablet 1 tablet = 40 mg, By Mouth, Daily, APPOINTMENT 02/26/20, # 10 tablet, 0 Refills, Maintenance, 02/22/20 13:44:00 EDT, Tablet, [facility], 191, cm, 12/27/19 12:20:00 EDT, Height, 193.5,kg, 05/21/19 5:38:00 EST, Dry Weight Start Date: 02/22/20 Status: Ordered LORazepam 2 mg oral tablet 1 tablet = 2 mg, By Mouth, 3 times a day, PRN for anxiety, # 90 tablet, 0 Refills, Maintenance, 03/20/20 13:38:00 EDT, Tablet, [facility], 191, cm, 12/27/19 12:20:00 EDT, Height, 193.5, kg, 05/21/19 5:38:00 EST, Dry Weight Start Date: 03/20/20 Status: Ordered Metoprolol Succinate ER 50 mg oral tablet, extended release 1 tablet = 50 mg, By Mouth, Daily, # 90 tablet, 3 Refills, Soft Stop, 08/06/19 14:50:00 EST, [facility], 191, cm, 07/23/19 14:30:00 EST, Height, 193.5, kg, 05/21/19 5:38:00 EST, Dry Weight Start Date: 08/06/19 Status: Ordered nystatin topical 375422 u/gm powder See Instructions, Topically 2 times a day, # 60 Gm, 5 Refills, Maintenance, 02/19/20 15:59:00 EDT, Powder, [facility], Topically 2 times a day, 191, cm, 12/27/19 12:20:00 EDT, Height, 193.5, kg, 05/21/19 5:38:00 EST, Dry Weight Start Date: 02/19/20 Status: Ordered phenytoin 100 mg oral capsule, extended release See Instructions, 2 capsules (200mg) in AM 4 capsules (400mg) in PM, # 180 capsule, 3 Refills, Maintenance, 02/21/20 10:49:00 EDT, [facility], changed to 100mg due to being out of 200, 191, cm, 12/27/19 12:20:00 EDT, Height, 193.5, kg, 1... Start Date: 02/21/20 Status: Ordered prazosin 5 mg oral capsule 5 mg, 1, capsule, By Mouth, Daily at bedtime, # 30 capsule, Refills 5, Tot. Refills 5, Maintenance,07/19/19 15:02:00 EST, Route to Pharmacy Electronically, [facility], 191, cm, 07/18/19 14:17:00 EST, Height, 193.5, kg, 05/21/19 5:38:00 E... Start Date: 07/19/19 Status: Ordered QUEtiapine 50 mg oral tablet 1 tablet = 50 mg, By Mouth, Daily, # 30 tablet, 5 Refills, Maintenance, 12/12/19 10:07:00 EDT, Tablet, [facility], 191, cm, 07/23/19 14:30:00 EST, Height, 193.5, kg, 05/21/19 5:38:00EST, Dry Weight Start Date: 12/12/19 Status: Ordered spironolactone 25 mg oral tablet 25 mg, 1, tablet, By Mouth, Daily, # 30 tablet, Refills 5, Tot. Refills 5, Maintenance, 02/19/20 9:52:00 EDT, Route to Pharmacy Electronically, [facility], 191, cm, 12/27/19 12:20:00EDT, Height, 193.5, kg, 05/21/19 5:38:00 EST, Dry Weight Start Date: 02/19/20 Status: Ordered traZODone 50 mg oral tablet 100 mg, 2, tablet, By Mouth, Daily at bedtime, # 60 tablet, Refills 5, Tot. Refills 5, Maintenance,02/01/20 10:29:00 EDT, Route to Pharmacy Electronically, [facility], 191, cm, 12/27/19 12:20:00 EDT, Height, 193.5, kg, 05/21/19 5:38:00 E... Start Date: 02/01/20 Status: Ordered Vitamin D3 2000 intl units oral tablet 1 tablet = 2,000 International_Units, By Mouth, Daily, # 90 tablet, 1 Refills, Maintenance, 02/20/20 14:34:00 EDT, [facility], 191, cm, 12/27/19 12:20:00 EDT, Height, 193.5, kg, 05/21/19 5:38:00 EST, Dry Weight Start Date: 02/20/20 Status: Ordered Problem List Condition Effective Dates [...] Painful peripheral neuropath y - NOS(Confirmed) Active [facility] prescription benzo 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
--- OUTSIDE RECORDS SUMMARY | 2022-10-04 17:47 | XMS_ITS | Continuity of Care Document ---
Author Name Unknown Organization [facility] Aung Address [address] [place] [address]- Care Team Providers Care Medical Office Representative Name Role Phone Brown Parada MD Primary Care Physician Encounter [facility] Date(s): 08/28/21 - 11/07/21 [facility] [address] [place] [address]- Attending Physician: Brown Parada MD Allergies, Adverse Reactions, Alerts Substance Reaction Severity Status clindamycin Hives Active penicillin rash Active Contrast Dye urticaria Active antivenin (black spider) Active Latex anaphylaxis Active aspirin Active Bee Stings Active Immunizations Given and Recorded Vaccine Date Status Refusal Reason SARS-CoV-2 (COVID-19) mRNA-1273 vaccine 1 07/10/21 Given [...] Reason: Med Not Available 2Result Comment: [05/15/2018] 54558-415-14 3Result Comment: [id number] 4Result Comment: [id number] Medications acetaminophen 325 mg oral tablet 650 [...] Date: 05/25/21 Stop Date: 05/20/22 Status: Ordered atorvastatin 80 mg oral tablet See Instructions, TAKE 1 TABLET BY MOUTH DAILY., # 28 tablet, 5 Refills, Maintenance, 09/07/21 11:06:00 EDT, [facility], 191, cm, 08/28/21 11:32:00 EDT, Height, 168.5, kg, 08/18/21 22:23:00 EDT, Dry Weight Start Date: 09/07/21 Status: Ordered Bariatric wheelchair with standard leg rests Bariatric wheelchair with standard leg rests, See Instructions, # 1 each, Refills 0, Tot. Refills 0, Maintenance, 22 x 16 standard bariatric wheelchair wt 157.7 ht 191 cm Dx: G89.4, 189, E66.01, 127.20 nessa 99 [place], 09/04/21 9:52:00 EDT, Supply, 19... Start Date: 09/04/21 Status: Ordered Cardizem CD 360 mg/24 hours [...] Dry Weight Start Date: 02/23/21 Status: Ordered Deltec Cozmo Glucometer See Instructions, # 1 each, Maintenance, check blood sugar levels before meals every day 3 times a day and at bedtime., 07/21/21 11:42:00 EST, Supply, 190, cm, 04/03/21 10:25:00 EDT, Height, 153, kg,01/14/21 23:22:00 EDT, Dry Weight Start Date: 07/21/21 Status: Ordered duloxetine 30 mg oral enteric coated capsule 1 capsule, By Mouth, 2 times a day, BUBBLE PACK, # 56 Unknown, 5 Refills, Maintenance, 02/23/21 16:53:00 EDT, [facility], 190, cm, 01/23/21 8:35:00 EDT, Height, 153, kg, 01/14/21 23:22:00 EDT, Dry Weight Start Date: 02/23/21 Status: Ordered Flonase 50 mcg/inh nasal spray 1 sprays, Nares, Both, 2 times a day, # 16 Gm, 11 Refills, Maintenance, 07/08/20 16:47:00 EST, [place], [facility], 1 sprays Nares, Both 2 times a day, 191, cm, 06/24/20 13:40:00 EST, Height, 193.5, kg, 05/21/19 5:38:00 EST, Dry Weight Start Date: 07/08/20 Status: Ordered Freestyle Christin 14 day reader Freestyle Christin 14 day reader, See Instructions, # 1 each, Refills 0, Tot. Refills 0, Maintenance, Freestyle Chrsitin 14 day reader, 08/28/21 13:18:00 EDT, Compound, [...] Weight Start Date: 08/28/21 Status: Ordered gabapentin 300 mg oral capsule See Instructions, 1 capsule By Mouth 5 times a day, # 150 capsule, Refills 5, Tot. Refills 5, Maintenance, 07/30/21 14:09:00 EST, Instructions Replace Required Details, Route to Pharmacy Electronically, [facility], 190, cm, 07/27/21 12:49... Start Date: 07/30/21 Status: Ordered hydrOXYzine hydrochloride 25 mg oral tablet 1 tablet, By Mouth, 3 times a day, BUBBLE PACK, # 84 tablet, 5 Refills, Maintenance, 07/30/21 9:02:00 EST, [facility], 190, cm, 07/27/21 12:49:00 EST, Height, 153, kg, 01/14/21 23:22:00 EDT, Dry Weight Start Date: 07/30/21 Status: Ordered Insulin Syringe, BD Ultra-Fine 0.3 cc 31 G x 8 mm (5/16in) See Instructions, # 100 each, Refills 5, Tot. Refills 5, Maintenance, use as directed for Type 2 Diabetes Mellitus, 07/21/21 11:42:00 EST, Supply, 190, cm, 04/03/21 10:25:00 EDT, Height, 153, kg, 01/14/21 23:22:00 EDT, Dry Weight Start Date: 07/21/21 Stop Date: 01/17/22 Status: Ordered isosorbide mononitrate 60 mg oral tablet, extended release See Instructions, TAKE ONE TABLET BY MOUTH EVERY MORNING, # 90 Unknown, 3 Refills, [facility], 190, cm, 07/27/21 12:49:00 EST, Height, 153, kg, 01/14/21 23:22:00 EDT, Dry Weight Start Date: 08/11/21 Status: Ordered Lantus 100 u/ml subcutaneous solution = 20 units, Subcutaneous Injection, Daily at bedtime, # 10 mL, 0 Refills, Maintenance, 07/21/21 11:47:00 EST, Solution, [facility], Partial fill upon patient request if the prescriptionis for a schedule II opioid drug., 190, cm, ... Start Date: 07/21/21 Status: Ordered LORazepam 2 mg oral tablet [...] # 30 tablet, 5 Refills, Soft Stop, 08/28/21 13:06:00 EDT, [facility], 191, cm, 08/28/21 11:32:00 EDT, Height, 168.5, kg, 08/18/21 22:23:00 EDT, DryWeight Start Date: 08/28/21 Status: Ordered Narcan 4 mg/0.1 mL nasal [...] COMMUNICATE SUGARS WITH PCP TO TITRATE LANTUS. [phone], 08/28... Start Date: 08/28/21 Status: Ordered One [...] a day, PRN, Dx: Chronic widespread pain syndrome, # 56 tablet, Refills 0, Tot. Refills 0, Maintenance, Pain , Severe, 10/22/21 15:28:00 EDT, Route to Pharmacy Electronically, [facility], Partial fill upo... Start Date: 10/22/21 Status: Ordered pantoprazole 40 mg oral delayed release tablet See Instructions, TAKE ONE TABLET BY MOUTH EVERY DAY, # 28 tablet, 2 Refills, Maintenance, 09/07/2210:06:00 EDT, 191, cm, 08/28/21 11:32:00 EDT, Height, 168.5, kg, 08/18/21 22:23:00 EDT, Dry Weight Start Date: 09/07/21 Status: Ordered phenytoin 100 mg oral capsule, extended release See Instructions, TAKE 2 CAPSULES BY MOUTH IN THE MORNING & TAKE 4 CAPSULES IN THE EVENING. BUBBLE PACK, # 168 Unknown, 5 Refills, 02/23/21 16:53:00 EDT, [facility], 190, cm, 01/23/21 8:35:00 EDT, Height, 153, kg, 01/14/21 23:22:00 EDT, D... Start Date: 02/23/21 Status: Ordered phenytoin 100 mg oral capsule, extended release See Instructions, TAKE 2 CAPSULES BY MOUTH IN THE MORNING & TAKE 4 CAPSULES IN THE EVENING. BUBBLE PACK, # 168 capsule, 5 Refills, 09/15/21 5:56:00 EDT, [facility], 191, cm, 08/28/21 11:32:00 EDT, Height, 168.5, kg, 08/18/21 22:23:00 EDT... Start Date: 09/15/21 Status: Ordered prazosin 5 mg oral capsule 5 mg, 1, capsule, By Mouth, Daily at bedtime, BUBBLE PACK, # 28 capsule, Refills 4, Tot. Refills 4,Maintenance, 04/02/21 8:22:00 EDT, Route to Pharmacy Electronically, [facility], 190, cm, 01/23/21 8:35:00 EDT, Height, 153, kg, 01/14/21... Start Date: 04/02/21 Status: Ordered ProAir HFA 90 mcg/inh inhalation aerosol 2 puffs, Inhalation, Every 4 hours, PRN Wheezing/Shortness of Breath, # 1 each, 5 Refills, Maintenance, 06/27/20 16:56:00 EST, [facility], Partial fill upon patient request if the prescription is for a schedule II opioid drug., 2 puffs In... Start Date: 06/27/20 Status: Ordered QUEtiapine 50 mg oral tablet [...] II opioid drug., 190, cm, 07/27/21 12:49:00 EST, Hei... Start Date: 08/17/21 Stop Date: 02/13/22 Status: Ordered VITAMIN B12 TR 1000MCG TBCR VITAMIN B12 TR 1000MCG TBCR, See Instructions, # 90 tablet, 3 Refills, TAKE ONE TABLET BY MOUTH EVERY DAY, 190, cm, 07/27/21 12:49:00 EST, Height, 153, kg, 01/14/21 23:22:00 EDT, Dry Weight Start Date: 08/11/21 Status: Ordered Vitamin D3 2000 intl units oral tablet 1 tablet, By Mouth, Daily, # 28 tablet, 4 Refills, [facility], 191, cm, 08/28/21 11:32:00 EDT, Height, 168.5, kg, 08/18/21 22:23:00 EDT, Dry Weight Start Date: 10/29/21 Status: Ordered Problem List Condition Effective Dates [...] Painful peripheral neuropath y - NOS(Confirmed) Active 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
--- OUTSIDE RECORDS SUMMARY | 2022-10-04 17:47 | XMS_ITS | Continuity of Care Document ---
Author Name Unknown Organization [facility] Aung lt Address [address] [place] [id number]- Care Team Providers Care Scalemaker Name Role Phone Matheus Yo MD Primary Care Physician [facility]counter [facility] Date(s): 12/13/19 - 01/12/20 [facility] Adult [address] [place] [address]- [facility] Allergies, Adverse Reactions, Alerts Substance Reaction Severity [...] kyle tetanus/diphtheria/pertussis, acel(Tdap) 05/07/09 Given 1Result Comment: [id number] 2Result Comment: [id number] 3Result Comment: [05/15/2018] 37964-389-25 Medications acetaminophen 325 mg oral tablet 650 mg, By Mouth, Every 4 hours, PRN, Refills 0, Maintenance, Pain , Mild, 12/12/19 13:05:00 EDT Start Date: 12/12/19 Status: Ordered atorvastatin 20 mg oral tablet 1 tablet = 20 mg, By Mouth, Daily, # 90 tablet, 3 Refills, Soft Stop, 03/14/19 13:58:57 EDT Start Date: 03/14/19 Status: Ordered Basic metabolic panel Basic metabolic [...] 10/25/19 8:57:00 EDT, Route to Pharmacy Electronically, [facility], 191, cm, 07/23/19 14:30:00EST, Height, [...] EDT, Route to Pharmacy Electronically, [facility], 191, cm, 07/23/2013:30:00 EST, Height, 193.5, kg, 05/21/19 5:38:00 EST,... Start Date: 12/12/19 Status: Ordered Flonase 50 mcg/inh nasal spray 1 sprays, Nares, Both, 2 times a day, # 16 Gm, 0 Refills, Maintenance, 05/23/18 10:06:41 EST, [place], 1 sprays Nares, Both 2 times a day Start Date: 05/23/18 Status: Ordered gabapentin 300 mg oral capsule 300 mg, 1, capsule, By Mouth, 2 times a day, Refills 0, Maintenance, 12/06/19 18:43:00 EDT Start Date: 12/06/19 Status: Ordered hydrOXYzine hydrochloride 25 mg oral [...] Refills 3, Tot. Refills 3, Soft Stop, 08/06/19 14:53:00 EST, Route to Pharmacy Electronically, [facility], 191, cm, 07/23/19 14:30:00 EST, Height, 193.5, kg, 05/21/19 5:38:00 EST, Dry... Start Date: 08/06/19 Status: Ordered Lasix 40 mg oral tablet 40 mg, 1, tablet, By Mouth, Daily, Refills 0, Maintenance, 12/12/19 13:04:00 EDT Start Date: 12/12/19 Status: Ordered LORazepam 2 mg oral tablet 1 tablet = 2 mg, By Mouth, 3 times a day, PRN for anxiety, # 90 tablet, 2 Refills, Maintenance, 12/14/19 14:20:00 EDT, Tablet, Dry Weight Start Date: 12/14/19 Status: Ordered Metoprolol Succinate ER 50 mg oral tablet, extended release 1 tablet = 50 mg, By Mouth, Daily, # 90 tablet, 3 Refills, Soft Stop, 08/06/19 14:50:00 EST, [facility], 191, cm, 07/23/19 14:30:00 EST, Height, 193.5, kg, 05/21/19 5:38:00 EST, Dry Weight Start Date: 08/06/19 Status: Ordered nystatin topical 068727 u/gm powder See Instructions, Topically 2 times a day, # 30 Gm, 3 Refills, Maintenance, 10/16/19 16:18:00 EDT, Powder, [facility], Topically 2 times a day, 191, cm, 07/23/19 14:30:00 EST, Height, 193.5, kg, 05/21/19 5:38:00 EST, Dry Weight Start Date: 10/16/19 Status: Ordered phenytoin 100 mg oral capsule, extended release See Instructions, 2 capsules (200mg) in AM 4 capsules (400mg) in PM, # 180 capsule, 3 Refills, Maintenance, 10/19/19 10:01:00 EDT, [facility], changed to 100mg due to being out of 200, 191, cm, 07/23/19 14:30:00 EST, Height, 193.5, kg, 1... Start Date: 10/19/19 Status: Ordered prazosin 5 mg oral capsule 5 mg, 1, capsule, By Mouth, Daily at bedtime, # 30 capsule, Refills 5, Tot. Refills 5, Maintenance,07/19/19 15:02:00 EST, Route to Pharmacy Electronically, [facility], 191, cm, 07/18/19 14:17:00 EST, Height, 193.5, kg, 05/21/19 5:38:00 E... Start Date: 07/19/19 Status: Ordered QUEtiapine 50 mg oral tablet 1 tablet = 50 mg, By Mouth, Daily, # 30 tablet, 5 Refills, Maintenance, 12/12/19 10:07:00 EDT, Tablet, [facility], 191, cm, 07/23/19 14:30:00 EST, Height, 193.5, kg, 05/21/19 5:38:00EST, Dry Weight Start Date: 12/12/19 Status: Ordered spironolactone 25 mg oral tablet 25 mg, 1, tablet, By Mouth, Daily, # 90 tablet, Refills 3, Tot. Refills 3, Maintenance, 12/28/18 15:03:05 EDT, Route to Pharmacy Electronically, [id number], [id number] Start Date: 12/28/18 Status: Ordered traZODone 50 mg oral tablet 100 mg, 2, tablet, By Mouth, Daily at bedtime, # 60 tablet, Refills 5, Tot. Refills 5, Maintenance,07/24/19 11:40:00 EST, Route to Pharmacy Electronically, [facility], 191, cm, 07/23/19 14:30:00 EST, Height, 193.5, kg, 05/21/19 5:38:00 E... 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
--- OUTSIDE RECORDS SUMMARY | 2022-10-04 17:47 | XMS_ITS | Continuity of Care Document ---
Author Name Unknown Organization [facility] [place] Aung lt Address [address] [place] [address]- Care Team Providers Care Appetizer Packer Name Role Phone Tal WILKINS, Brown Paz Primary Care Physician [phone] Encounter [facility] Date(s): 06/25/22 - 07/25/22 [facility] Adult [address] [place] [address]- Allergies, Adverse Reactions, Alerts Substance Reaction Severity Status clindamycin Hives Active penicillin rash Active Bee Stings Active antivenin (black spider) Active Contrast Dye urticaria Active Latex anaphylaxis Active Immunizations Given and Recorded Vaccine Date [...] Reason: Med Not Available 2Result Comment: [05/15/2018] 60695-445-88 3Result Comment: [id number] 4Result Comment: [id number] Medications albuterol CFC free 90 mcg/inh inhalation aerosol 180 mcg, 2, puffs, Inhalation, Every 4 hours, PRN, Refills 0, Maintenance, 05/17/22 11:07:00 EST, Inhaler Start Date: 05/17/22 Status: Ordered aspirin 81 mg oral delayed release tablet 81 mg, By Mouth, Daily, Refills 0, Maintenance, 05/17/22 11:07:00 EST, Partial fill upon patient request if the prescription is for a schedule II opioid drug. Start Date: 05/17/22 Status: Ordered Bariatric wheelchair [...] Gm, 11 Refills, Maintenance, 07/08/20 16:47:00 EST, [place], [facility], 1 sprays [...] 04/02/22 5:55:00 EDT, Route to Pharmacy Electronically, [facility], 191, cm, 02/11/22 11:45:00 EDT, Height, 170, kg, 02/05/22 22:35:00 EDT, . Start Date: 04/02/22 Status: Ordered hydrOXYzine hydrochloride 25 mg oral tablet 1 tablet, By Mouth, 3 times a day, # 84 tablet, 5 Refills, Maintenance, 06/11/22 11:15:00 EST, [facility], 191, cm, 02/11/22 11:45:00 EDT, [...] Date: 07/21/21 Stop Date: 01/17/22 Status: Ordered Jardiance 10 mg oral tablet 1 tablet = 10 mg, By Mouth, Daily in AM, # 30 tablet, 1 Refills, Maintenance, 06/14/22 14:35:00 EST, Tablet, [facility], Partial fill upon patient request if the prescription is for a schedule II opioid drug., 191, cm, 02/11/22 11:45:00 E... Start Date: 06/14/22 Status: Ordered Lipitor 80 mg oral tablet [...] COMMUNICATE SUGARS WITH PCP TO TITRATE LANTUS. [phone], 08/28... Start Date: 08/28/21 Status: Ordered One [...] oral capsule, extended release See Instructions, TAKE 3 CAPSULES BY MOUTH IN THE MORNING (THIS IS A DOSE INCREASE ) & TAKE 4 CAPSULES IN THE EVENING, # 360 capsule, 2 Refills, Maintenance, 05/17/22 11:00:00 EST, [facility], 191, cm, 02/11/22 11:45:00 EDT, [...] tablet, 5 Refills, Maintenance, 07/08/22 10:43:00 EST, [facility], 191, cm, 02/11/22 11:45:00 EDT, Height, 170, kg, 02/05/22 22:35:00 EDT, Dry Weight Start Date: 07/08/22 Status: Ordered Vitamin D3 2000 intl units oral tablet 1 tablet, By Mouth, Daily, # 28 tablet, 4 Refills, [facility], 191, cm, 08/28/21 11:32:00 EDT, [...] Painful peripheral neuropathy - NOS Confirmed Active [facility] prescription benzodiazepine use Confirmed Active Limited mobility Confirmed Active Severe obesity Confirmed Active Non-insulin dependent type 2 diabetes mellitus Confirmed Active Social History Social History Type Response Smoking Status Never entered on: 05/15/18 Sex Patient Care team information Care Team Personnel Name: All BOSS Gladis Loyolamagdaleno [facility] RN Member Role: Primary Care Nurse Name: Ebony Santoyo RN [facility] RN Member Role: Primary Care Nurse Name: Siobhan Ko RN Position[facility] RN Member Role: Primary Care Nurse Name: Evette Marrero Position[facility] RN Supv Member Role: Primary Care Nurse Name: Aviva Howard RN Position[facility] RN Member Role: Primary Care Nurse Name: Hilda Doyle RN Position[facility] RN Supv Member Role: Primary Care Nurse Name: Kimmy Ahumada NP Position: [facility] Associate Professional Member Role: Primary Care Nurse Address: Address: [address] [place] [id number] Name: Bruce Mccurdy MD [facility] Renal MD Member Role: Lifetime Consulting Physician Address: Address: [address] [place] [address], [address] [facility] [place], [place] [address] Name: Malika Richards RN Position: [facility] Field Support Specialist Member Role: Primary Care Nurse Name: JO GONZALEZ RN Position[facility] RN Member Role: Primary Care Nurse Name: Shelby Luna RN Position[facility] RN Member Role: Primary Care Nurse Name: Sarina Camejo RN Position[facility] RN Member Role: Primary Care Nurse Name: Lachelle Shine RN Position[facility] RN Member Role: Primary Care Nurse Name: Leilani Lerma RN Position: [facility] HBO Wound Member Role: Primary Care Nurse Name: Sandrita Portillo LPN Position[facility] RN Member Role: Primary Care Nurse Name: Corina Munoz RN Position[facility] RN Member Role: Primary Care Nurse Name: Vania Hernandez Position[facility] RN Member Role: Primary Care Nurse Name: Mukul Dougherty RN Position[facility] RN Member Role: Primary Care Nurse Name: Hammad Gambino RN Position[facility] RN Member Role: Primary Care Nurse Name: Kenia Rao RN Position[facility] RN Member Role: Primary Care Nurse Name: Michele Villavicencio RN Position[facility] RN Member Role: Primary Care Nurse Name: Brown Parada MD Position[facility] Primary Care Physician Member Role: PCP Address: Address: [address] [place] [address]- [place] Name: Charlette Lopez RN Position[facility] RN Member Role: Primary Care Nurse Name: Elena Sheikh RN Position[facility] RN Member Role: Primary Care Nurse Name: Theodora Serna RN Position[facility] PCO RN Member Role: Primary Care Nurse Name: Yang Silva RN Position[facility] RN Member Role: Primary Care Nurse Name: Xiomaar Mario RN Position[facility] RN Member Role: Primary Care Nurse Name: Meg Norman RN Position[facility] RN Member Role: Primary Care Nurse Name: Latanya Garza RN Position[facility] RN Member Role: Primary Care Nurse Name: Jaimie Gibson RN [facility] RN Member Role: Primary Care Nurse Name: Carmen Bruner RN Position[facility] RN Member Role: Primary Care Nurse Name: Kirill Mccartney RN Position[facility] RN Member Role: Primary Care Nurse Name: Chacha Hassan RN Position[facility] RN Member Role: Primary Care Nurse Name: Earlene Grayson RN Position[facility] SN RN Member Role: Primary Care Nurse Name: Cem Carroll MD Position[facility] Renal MD Member Role: Lifetime Consulting Physician Address: Address: [address] [place] [address] [facility] [place] [address]- [place] Name: Eusebia Hassan RN Position[facility] RN Member Role: Primary Care Nurse Care Team Related Persons Name: JIMENEZ BRUNER Address: [address] [place] [address] Name: ANYA DE JESUS Address: [address] [place] [address]
--- OUTSIDE RECORDS SUMMARY | 2022-10-04 17:47 | XMS_ITS | Continuity of Care Document ---
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 Hobbing Press Operator Name Role Phone Tal WILKINS, Brown Paz Primary Care Physician Encounter [facility] Date(s): 07/20/22 - 08/19/22 [facility] Adult [address] [place] [address]- Allergies, Adverse Reactions, Alerts Substance Reaction Severity [...] Reason: Med Not Available 2Result Comment: [05/15/2018] 13505-534-41 3Result Comment: [id number] 4Result Comment: [id number] Medications albuterol CFC free 90 mcg/inh inhalation [...] Gm, 11 Refills, Maintenance, 07/08/20 16:47:00 EST, [place], [facility], 1 sprays [...] tablet, 1 Refills, Maintenance, 03/09/22 9:51:00 EDT, [facility], 191, cm, 02/11/22 11:45:00 EDT, Height, 170, kg, 02/05/22 22:35:00 EDT, Dry Weight Start Date: 03/09/22 Status: Ordered LORazepam 2 mg oral tablet 1 tablet = 2 mg, By Mouth, 3 times a day, PRN for anxiety, # 90 tablet, 2 Refills, Maintenance, 06/11/21 16:39:00 EST, Tablet, [facility], 190, cm, 04/03/21 10:25:00 EDT, Height, 153, kg, 01/14/21 23:22:00 EDT, Dry Weight Start Date: 06/11/21 Status: Ordered metFORMIN 1000 mg oral tablet 1 tablet = 1,000 mg, By Mouth, Daily, # 90 tablet, 1 Refills, Maintenance, 03/15/22 18:36:00 EDT, [facility], 191, cm, 02/11/22 11:45:00 EDT, Height, 170, kg, 02/05/22 22:35:00 EDT, Dry Weight Start Date: 03/15/22 Status: Ordered Metoprolol Succinate ER 50 mg oral tablet, extended release 1 tablet, By Mouth, Daily, # 90 tablet, 1 Refills, Maintenance, 07/23/22 4:11:00 EST, [facility], 191, cm, 02/11/22 11:45:00 EDT, Height, 170, kg, 02/05/22 22:35:00 EDT, Dry Weight Start Date: 07/23/22 Status: Ordered Narcan 4 mg/0.1 mL nasal spray = 4 mg, Naris, Left, Once, PRN overdose, # 2 each, 0 Refills, Soft Stop, 09/24/21 18:09:00 EDT, [facility], Partial fill upon patient request [...] capsule, 2 Refills, Maintenance, 05/17/22 11:00:00 EST, [facility], 191, cm, 02/11/22 11:45:00 EDT, [...] Refills, Maintenance, 07/08/22 10:43:00 EST, [facility], 191, cm, 02/11/22 11:45:00 EDT, [...] Painful peripheral neuropathy - NOS Confirmed Active [facility] care prescription benzodiazepine use Confirmed Active PTSD - Post-traumatic stress disorder Confirmed Active Limited mobility Confirmed Active Severe obesity Confirmed Active Non-insulin dependent type 2 diabetes mellitus Confirmed Active Social History Social History Type Response Smoking Status Never entered on: 05/15/18 Sex Patient Care team information Care Team Personnel Name: Gladis Carrizales RN Position: [facility] RN Member Role: Primary Care Nurse Name: Ebony Santoyo RN Position: [facility] RN Member Role: Primary Care Nurse Name: Siobhan Ko RN Position: [facility] RN Member Role: Primary Care Nurse Name: Evette Marrero Position: [facility] RN Supv Member Role: Primary Care Nurse Name: Aviva Howard RN Position: [facility] RN Member Role: Primary Care Nurse Name: Hilda Doyle RN Position: [facility] RN Supv Member Role: Primary Care Nurse Name: Kimmy Ahumada NP Position: [facility] Associate Professional Member Role: Primary Care Nurse Address: Address: [address] [place] [id number]- Name: Bruce Mccurdy MD Position: [facility] Renal MD Member Role: Lifetime Consulting Physician Address: Address: [address] [place] [address], [address] [facility] [place] [address]- Name: JO GONZALEZ RN Position: [facility] RN Member Role: Primary Care Nurse Name: Mirella Mabry RN Position: [facility] RN Member Role: Primary Care Nurse Name: Shelby Luna RN Position: [facility] RN Member Role: Primary Care Nurse Name: Sarina Camejo RN Position: [facility] RN Member Role: Primary Care Nurse Name: Lachelle Shine RN Position: [facility] RN Member Role: Primary Care Nurse Name: Leilani Lerma RN Position: [facility] HBO Wound Member Role: Primary Care Nurse Name: Sandrita Portillo LPN Position: [facility] RN Member Role: Primary Care Nurse Name: Corina Munoz RN Position: [facility] RN Member Role: Primary Care Nurse Name: Vania Hernandez Position: [facility] RN Member Role: Primary Care Nurse Name: Mukul Dougherty RN Position: [facility] RN Member Role: Primary Care Nurse Name: Hammad Gambino RN Position: [facility] RN Member Role: Primary Care Nurse Name: Kenia Rao RN Position: [facility] RN Member Role: Primary Care Nurse Name: Michele Villavicencio RN Position: [facility] ED RN W/OE and Tasks Member Role: Primary Care Nurse Name: Brown Parada MD Position: [facility] Primary Care Physician Member Role: PCP Address: Address: [address] [place] [address]- Name: Charlette Lopez RN Position: [facility] RN Member Role: Primary Care Nurse Name: Elena Sheikh RN Position: [facility] RN Member Role: Primary Care Nurse Name: Theodora Serna RN Position: [facility] KRISTYO RN Member Role: Primary Care Nurse Name: Yang Silva RN Position: [facility] RN Member Role: Primary Care Nurse Name: Xiomara Mario RN Position: [facility] RN Member Role: Primary Care Nurse Name: Meg Norman RN Position: [facility] RN Member Role: Primary Care Nurse Name: Latanya Garza RN Position: [facility] RN Member Role: Primary Care Nurse Name: Jaimie Gibson RN Position: [facility] RN Member Role: Primary Care Nurse Name: Carmen Bruner RN Position: [facility] RN Member Role: Primary Care Nurse Name: Kirill Mccartney RN Position: S RN Member Role: Primary Care Nurse Name: Chacha Hassan RN Position: S RN Member Role: Primary Care Nurse Name: Earlene Grayson RN Position: [facility] SN RN Member Role: Primary Care Nurse Name: Cem Carroll MD Position: [facility] Renal MD Member Role: Lifetime Consulting Physician Address: Address: [address] [place] [address] [facility] [address] Name: Eusebia Hassan RN Position: S RN Member Role: Primary Care Nurse Name: Arsalan Cai RN Position: [facility] RN Member Role: Primary Care Nurse Care Team Related Persons Name: JIMENEZ BRUNER Address: [address] [place] [address] Name: ANYA DE JESUS Address: home [address] [place] [address]
--- OUTSIDE RECORDS SUMMARY | 2022-10-04 17:48 | XMS_ITS | Continuity of Care Document ---
Author Name Unknown Organization [facility] Aung Address [address] [place] [address]- Care Team Providers Care It Application Administrator Name Role Phone Sanaz WILKINS, Matheus Castro Primary Care Physician [facility] Date(s): 04/24/20 - 05/24/20 [facility] Adult [address] [place] [address]- Allergies, Adverse Reactions, Alerts Substance Reaction Severity [...] kyle tetanus/diphtheria/pertussis, acel(Tdap) 05/07/09 Given 1Result Comment: [id number] 2Result Comment: [id number] 3Result Comment: [05/15/2018] 18505-842-77 Medications acetaminophen 325 mg oral tablet 650 mg, By Mouth, Every 4 hours, PRN, Refills 0, Maintenance, Pain , Mild, 12/12/19 13:05:00 EDT Start Date: 12/12/19 Status: Ordered atorvastatin 80 mg oral tablet 1 tablet = 80 mg, By Mouth, Daily, # 90 tablet, 3 Refills, Maintenance, 04/28/20 13:17:00 EST, Tablet, [facility], Partial fill upon patient request, 191, cm, 12/27/19 12:20:00 EDT, Height, 193.5, kg, 05/21/19 5:38:00 EST, Dry Weight Start Date: 04/28/20 Status: Ordered Basic metabolic panel Basic metabolic [...] tablet, Refills 5, Tot. Refills 5, Maintenance, 05/07/20 10:14:00 EST, Route to Pharmacy Electronically, [facility], 191, cm, 12/27/19 12:20:00 EDT, Height, 193.5, kg, 05/21/19 5:38:00 EST, Dry Weight Start Date: 05/07/20 Stop Date: 11/03/20 Status: Ordered cyanocobalamin 1000 mcg oral tablet, extended release 1 tablet = 1,000 mcg, By Mouth, Daily, # 30 tablet, 11 Refills, Maintenance, 02/21/20 10:38:00 EDT,[facility], 191, cm, 12/27/19 12:20:00 EDT, Height, 193.5, kg, 05/21/19 5:38:00 EST, Dry Weight Start Date: 02/21/20 Status: Ordered duloxetine 30 mg oral enteric coated capsule 1 capsule = 30 mg, By Mouth, 2 times a day, # 60 capsule, 5 Refills, Maintenance, 03/31/20 17:16:00EDT, [facility], 191, cm, 12/27/19 12:20:00 EDT, Height, 193.5, kg, 05/21/19 5:38:00 EST, Dry Weight Start Date: 03/31/20 Status: Ordered famotidine 20 mg oral tablet 20 mg, 1, tablet, By Mouth, 2 times a day, # 60 tablet, Refills 2, Tot. Refills 2, Maintenance, 12/12/19 13:24:00 EDT, Route to Pharmacy Electronically, [facility], 191, cm, 07/23/2013:30:00 EST, Height, 193.5, kg, 05/21/19 5:38:00 EST,... Start Date: 12/12/19 Status: Ordered Flonase 50 mcg/inh nasal spray 1 sprays, Nares, Both, 2 times a day, # 16 Gm, 0 Refills, Maintenance, 05/23/18 10:06:41 EST, [place], 1 sprays Nares, Both 2 times a day Start Date: 05/23/18 Status: Ordered gabapentin 300 mg oral capsule 300 mg, 1, capsule, By Mouth, 3 times a day, # 90 capsule, Refills 11, Tot. Refills 11, Maintenance, 04/28/20 13:15:00 EST, Route to Pharmacy Electronically, [facility], 191, cm, 12/27/19 12:20:00 EDT, Height, 193.5, kg, 05/21/19 5:38:00... Start Date: 04/28/20 Stop Date: 04/23/21 Status: Ordered hydrOXYzine hydrochloride 25 mg oral tablet 1 tablet = 25 mg, By Mouth, 3 times a day, # 90 tablet, 11 Refills, Maintenance, 04/09/20 16:46:00 EST, Tablet, [facility], 191, cm, 12/27/19 12:20:00 EDT, Height, 193.5, kg, 05/21/19 5:38:00 EST, Dry Weight Start Date: 04/09/20 Status: Ordered isosorbide mononitrate 60 mg oral tablet, extended release 60 mg, 1, tablet, By Mouth, Daily in AM, # 90 tablet, Refills 0, Tot. Refills 0, Soft Stop, 02/20/20 14:34:00 EDT, Route to Pharmacy Electronically, [facility], 191, cm, 12/27/19 12:20:00 EDT, Height, 193.5, kg, 05/21/19 5:38:00 EST, Dry... Start Date: 02/20/20 Status: Ordered Lasix 40 mg oral tablet 40 mg, 1, tablet, By Mouth, 2 times a day, # 60 tablet, Refills 5, Tot. Refills 5, Maintenance, 03/31/20 17:16:00 EDT, Route to Pharmacy Electronically, [facility], 191, cm, 12/27/2011:20:00 EDT, Height, 193.5, kg, 05/21/19 5:38:00 EST,... Start Date: 03/31/20 Status: Ordered lisinopril 40 mg oral tablet 1 tablet = 40 mg, By Mouth, Daily, APPOINTMENT 02/26/20, # 10 tablet, 0 Refills, Maintenance, 02/22/20 13:44:00 EDT, Tablet, [facility], 191, cm, 12/27/19 12:20:00 EDT, Height, 193.5,kg, 05/21/19 5:38:00 EST, Dry Weight Start Date: 02/22/20 Status: Ordered loperamide 2 mg oral tablet 1 tablet = 2 mg, By Mouth, Every 4 hours, PRN as needed for loose stool, not to exceed 16 mg/day, #100 tablet, 0 Refills, Maintenance, 04/28/20 13:13:00 EST, Tablet, [facility], Partial fill upon patient request, 191, cm, 12/27/19 12:20:... Start Date: 04/28/20 Status: Ordered LORazepam 2 mg oral tablet 1 tablet = 2 mg, By Mouth, 3 times a day, PRN for anxiety, # 90 tablet, 2 Refills, Maintenance, 04/28/20 13:18:00 EST, Tablet, [facility], 191, cm, 12/27/19 12:20:00 EDT, Height, 193.5, kg, 05/21/19 5:38:00 EST, Dry Weight Start Date: 04/28/20 Status: Ordered Metoprolol Succinate ER 50 mg oral tablet, extended release 1 tablet = 50 mg, By Mouth, Daily, # 90 tablet, 3 Refills, Soft Stop, 05/07/20 13:32:00 EST, [facility], 191, cm, 12/27/19 12:20:00 EDT, Height, 193.5, kg, 05/21/19 5:38:00 EST, Dry Weight Start Date: 05/07/20 Status: Ordered nystatin topical 619228 u/gm powder See Instructions, Topically 2 times [...] 5:38:00 E... Start Date: 07/19/19 Status: Ordered Protonix 40 mg oral delayed release tablet 1 tablet = 40 mg, By Mouth, Daily, # 90 tablet, 3 Refills, Maintenance, 04/14/20 9:36:00 EST, [facility], 191, cm, 12/27/19 12:20:00 EDT, Height, 193.5, kg, 05/21/19 5:38:00 EST, Dry Weight Start Date: 04/14/20 Status: Ordered QUEtiapine 50 mg oral tablet 1 tablet = 50 mg, By Mouth, Daily, # 30 tablet, 5 Refills, Maintenance, 04/25/20 14:23:00 EST, Tablet, [facility], 191, cm, 12/27/19 12:20:00 EDT, Height, 193.5, kg, 05/21/19 5:38:00EST, Dry Weight Start Date: 04/25/20 Status: Ordered spironolactone 25 mg oral tablet 25 mg, 1, tablet, By Mouth, Daily, # 30 tablet, Refills 5, Tot. Refills 5, Maintenance, 02/19/20 9:52:00 EDT, Route to Pharmacy Electronically, [facility], 191, cm, 12/27/19 12:20:00EDT, Height, 193.5, kg, 05/21/19 5:38:00 EST, Dry Weight Start Date: 02/19/20 Status: Ordered traZODone 50 mg oral tablet 100 mg, 2, tablet, By Mouth, Daily at bedtime, # 60 tablet, Refills 5, Tot. Refills 5, Maintenance,02/01/20 10:29:00 EDT, Route to Pharmacy Electronically, [facility], 191, cm, 12/27/19 12:20:00 EDT, Height, 193.5, kg, 05/21/19 5:38:00 E... Start Date: 02/01/20 Status: Ordered Vitamin D3 2000 intl units oral tablet 1 tablet = 2,000 International_Units, By Mouth, Daily, # 90 tablet, 1 Refills, Maintenance, 02/20/20 14:34:00 EDT, [facility], 191, cm, 12/27/19 12:20:00 EDT, [...] Painful peripheral neuropath y - NOS(Confirmed) Active [facility] prescription benzo 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
--- OUTSIDE RECORDS SUMMARY | 2022-10-04 17:48 | XMS_ITS | Continuity of Care Document ---
Author Name Unknown Organization [facility] ter Address [address] [place] [id number] Care Team Providers Care Asset Manager Name Role Phone Tal WILKINS, Brown Paz Primary Care Physician Encounter [facility] Date(s): 05/03/22 - 05/03/[address] [address]- Encounter Diagnosis Chest pain(Final) - 05/03/22 Discharge Disposition: A-D/C Home Attending Physician: Kirill Tate MD Admitting Physician: Kirill Tate MD Referring Physician: Not on Staff, Referring MD Allergies, Adverse Reactions, Alerts Substance Reaction [...] Reason: Med Not Available 2Result Comment: [05/15/2018] [id number] 3Result Comment: [id number] 4Result Comment: [id number] Medications apixaban 5 mg oral tablet 1 [...] Gm, 11 Refills, Maintenance, 07/08/20 16:47:00 EST, [place], 1 sprays [...] 04/02/22 5:55:00 EDT, Route to Pharmacy Electronically, [facility], 191, cm, 02/11/22 11:45:00 EDT, Height, 170, kg, 02/05/22 22:35:00 EDT, . Start Date: 04/02/22 Status: Ordered hydrOXYzine hydrochloride 25 mg oral tablet 1 tablet, By Mouth, 3 times a day, # 84 tablet, 5 Refills, [facility], 191, cm, 12/10/21 10:57:00 EDT, [...] Date: 07/21/21 Stop Date: 01/17/22 Status: Ordered ketoconazole 2% topical cream 1 application, Topically, 2 times a day, for 14 days, Apply to affected skin as needed, # 60 Gm, 1 Refills, Acute 05/17/22 5:13:00 EST, 04/19/22 5:13:00 EST, Cream, [facility], Partial fill upon patient request if the prescription is for... Start Date: 04/19/22 Stop Date: 05/17/22 Status: Ordered Lantus 100 u/ml subcutaneous solution = 20 units, Subcutaneous Injection, Daily at bedtime, # 10 mL, 0 Refills, Maintenance, 07/21/21 11:47:00 EST, Solution, [facility], Partial fill upon patient request if [...] Dry Weight Start Date: 03/04/22 Status: Ordered MorPHINE Inj 4 mg, Injection, IV Push Slowly, Every 5 minutes for 3 doses/times, PRN for Pain , Moderate, and SBP greater than 100, Routine, 05/03/22 8:39:00 EST, Stop date Limited # of times Start Date: 05/03/22 Stop Date: 05/03/22 Status: Discontinued Narcan 4 mg/0.1 mL nasal spray = [...] COMMUNICATE SUGARS WITH PCP TO TITRATE LANTUS. [phone], 08/28... Start Date: 08/28/21 Status: Ordered nystatin topical 975800 u/gm powder 1 application, Topically, 3 times a day, for 14 days, # 30 Gm, 1 Refills, Acute 05/05/22 11:20:00 EST, 04/07/22 11:20:00 EDT, Powder, [facility], Partial fill upon patient request ifthe prescription is for a schedule II opioid drug., 1 a... Start Date: 04/07/22 Stop Date: 05/05/22 Status: Ordered One Touch Fine Point Lancets [...] 0, Tot. Refills0, Maintenance, Pain , Severe, 04/19/22 14:28:00 E... Start Date: 04/19/22 Status: Ordered pantoprazole 40 mg oral delayed [...] MORNING & TAKE 4 CAPSULES IN THE EVENING, # 168 capsule, 5 Refills, Maintenance, 03/12/22 6:33:00 EDT, [facility], 191, cm, 02/11/22 11:45:00 EDT, Height, 170, kg, 02/05/22 22:35:00 EDT, D... Start Date: 03/12/22 Status: Ordered SEROquel 100 mg oral tablet [...] Painful peripheral neuropathy - NOS Confirmed Active [facility] prescription benzodiazepine use Confirmed Active Limited mobility Confirmed Active Severe obesity Confirmed Active Non-insulin dependent type 2 diabetes mellitus Confirmed Active Results Radiology Reports * Exam Date Time Procedure Performing Provider Status 05/03/22 7:56 AM US Doppler Ext Lower Venous Right Shabana Reddy; Auth (Verified) Notes: (US Doppler Ext Lower Venous Right) Reason For Exam: Pain in limb;Other: RESULT: US Doppler Ext Lower Venous Right US Doppler Ext Lower Venous Right Hx of Present Illness: woke up 2-3hr ago, substernal CP radiating down L arm, sharp, stabbing , allergic to ASA, cardiac cath in Sept, hx afib, on thinners, takes diltiazem; Reason: Pain in limb; Clinical Question(s): Thrombus COMPARISON: 02/06/2022 IMAGING TECHNIQUE: Ultrasound of the veins from the groin through the calf was performed using grayscale, color, and spectral Doppler ultrasound assessing for complete compressibility and normal flowcharacteristics. FINDINGS: Common femoral vein: Patent. No thrombosis. Femoral vein: Patent. No thrombosis. Popliteal vein: Patent. No thrombosis. Gastrocnemius veins: The visualized portions are patent without evidence of thrombosis. Peroneal veins: The visualized portions are patent without evidence of thrombosis. Posterior tibial veins: The visualized portions are patent without evidence of thrombosis. Contralateral common femoral vein: Patent. No thrombosis. OTHER FINDINGS: There is diffuse calf edema. IMPRESSION: No evidence of deep venous thrombosis. WSN: [id number] Ordering Physician: Apryl Kovacs Dictated By: Kaz Lobato MD Dictated Date/Time: 05/03/22 8:55 am Reviewed By: Kaz Lobato MD Signed By: Kaz Lobato MD Signed Date/Time: 05/03/22 8:55 am Transcribed By: LEATHA Transcribed Date/Time: 05/03/22 8:47 am * Exam Date Time Procedure Performing Provider Status 05/03/22 8:[address] Angio Abdomen and Pelvis Pawel Cobb; Auth (Verified) Notes: (CT Angio Abdomen and Pelvis) Reason For Exam: chest pain;Other: RESULT: CT Angio Abdomen and Pelvis EXAMINATION: CT Angio Chest, CT Angio Abdomen and Pelvis INDICATION: Hx of Present Illness: woke up 2-3hr ago, substernal chest pain radiating down left arm. Reason: Aortic disease, nontraumatic; Clinical Question(s): Aortic Dissection. TECHNIQUE: An initial noncontrast CT of the chest was performed. Spiral CTA of the chest, abdomen, and pelvis was performed after rapid IV contrast administration with cardiac gating triggered by an AMANDA on the aorta. Images are formatted in multiple planes using 2-D multiplanar and 3-D maximum intensity projection. Gated axial images through the aortic root were also acquired during a separate 2nd injection of IV contrast with separate reconstructions of this data set formatted in multiple planes using 2-D multiplanar and 3-D maximum intensity projection. 100 cc of Omnipaque 300 was administered intravenously. Weight-based protocol using automatic tube modulation was used to optimize exposure parameters. CTDIvol Body: 12.90 mGy, DLP Body: 1251 mGy*cm. COMPARISONS: CT abdomen and pelvis 05/27/2019. CTA chest 02/05/2022 ANGIOGRAPHIC FINDINGS: No aortic dissection or aneurysm. Normal three vessel arch without branch vessel stenosis. Pulmonary arteries are normal in caliber. No evidence of central pulmonary embolism on this study performed without dedicated technique. Abdominal aorta: No aortic aneurysm or dissection. Celiac axis: Patent celiac axis. Unchanged normal variant tiny branching artery arising off the proximal abdominal aorta above the celiac axis (series 608 image 17) also seen on CT abdomen/pelvis of 05/27/2019. Superior mesenteric artery: Patent. Right renal artery: Patent. Left renal artery: Patent. Inferior mesenteric artery: Patent. Right common iliac artery: Patent. Right internal iliac artery: Patent. Right external iliac artery: Patent. Right common femoral artery: Patent. Visualized right superficial and deep femoral arteries: Patent. Left common iliac artery: Patent. Left internal iliac artery: Patent. Left external iliac artery: Patent. Left common femoral artery: Patent. Visualized left superficial and deep femoral arteries: Patent. NON-ANGIOGRAPHIC FINDINGS: Trachea and Airways: Patent without evidence of tracheal or endobronchial lesion. Lungs and Pleura: Mild bibasilar atelectasis. There are again a few scattered less than 4 mm pulmonary nodules, stable. Very trace bilateral pleural effusions. No pneumothorax. Mediastinum and rochelle: No mass or hematoma. No mediastinal or hilar lymphadenopathy. No esophageal abnormality. Heart: Heart is normal in size. No pericardial effusion. Chest Wall Soft Tissues: Normal. Diaphragm : No significant abnormality. Liver: Normal. Gallbladder: No CT evidence of gallbladder pathology. Bile ducts: No biliary ductal dilation. Spleen: Improved splenomegaly, now approximately 16.9 cm.. Pancreas: Normal. Adrenal glands: Normal. Kidneys and ureters: No hydronephrosis, stones, or suspicious masses. Bladder: Normal. Reproductive organs: Unremarkable. Stomach, small bowel, and large bowel: Normal. Peritoneum and retroperitoneum: No ascites or pneumoperitoneum. No omental or mesenteric lesions. Lymph nodes: No enlarged lymph nodes. Abdominal and pelvic wall: There is atrophy of the abdominal wall musculature. Bones: No acute abnormality. Multilevel degenerative changes of the spine. Chronic T11 compression fracture. IMPRESSION: No evidence of an aortic dissection. No evidence of central pulmonary embolism. Very minimal bilateral pleural effusions. Improved splenomegaly. I have personally reviewed the images and I agree with this report. WSN: [id number] Ordering Physician: Apryl Kovacs Dictated By: Raina Díaz DO Dictated Date/Time: 05/03/22 8:40 am Reviewed By: Nory Soria MD Signed By: Nory Soria MD Signed Date/Time: 05/03/22 8:45 am Transcribed By: LEATHA Transcribed Date/Time: 05/03/22 8:23 am * Exam Date Time Procedure Performing Provider Status 05/03/22 8:[address] Angio Chest Prateek Cobb (Verified) Notes: (CT Angio Chest) Reason For Exam: Aortic disease, nontraumatic;Other: RESULT: CT Angio Chest EXAMINATION: CT Angio Chest, CT Angio Abdomen and Pelvis INDICATION: Hx of Present Illness: woke up 2-3hr ago, substernal chest pain radiating down left arm. Reason: Aortic disease, nontraumatic; Clinical Question(s): Aortic Dissection. TECHNIQUE: An initial noncontrast CT of the chest was performed. Spiral CTA of the chest, abdomen, and pelvis was performed after rapid IV contrast administration with cardiac gating triggered by an AMANDA on the aorta. Images are formatted in multiple planes using 2-D multiplanar and 3-D maximum intensity projection. Gated axial images through the aortic root were also acquired during a separate 2nd injection of IV contrast with separate reconstructions of this data set formatted in multiple planes using 2-D multiplanar and 3-D maximum intensity projection. 100 cc of Omnipaque 300 was administered intravenously. Weight-based protocol using automatic tube modulation was used to optimize exposure parameters. CTDIvol Body: 12.90 mGy, DLP Body: 1251 mGy*cm. COMPARISONS: CT abdomen and pelvis 05/27/2019. CTA chest 02/05/2022 ANGIOGRAPHIC FINDINGS: No aortic dissection or aneurysm. Normal three vessel arch without branch vessel stenosis. Pulmonary arteries are normal in caliber. No evidence of central pulmonary embolism on this study performed without dedicated technique. Abdominal aorta: No aortic aneurysm or dissection. Celiac axis: Patent celiac axis. Unchanged normal variant tiny branching artery arising off the proximal abdominal aorta above the celiac axis (series 608 image 17) also seen on CT abdomen/pelvis of 05/27/2019. Superior mesenteric artery: Patent. Right renal artery: Patent. Left renal artery: Patent. Inferior mesenteric artery: Patent. Right common iliac artery: Patent. Right internal iliac artery: Patent. Right external iliac artery: Patent. Right common femoral artery: Patent. Visualized right superficial and deep femoral arteries: Patent. Left common iliac artery: Patent. Left internal iliac artery: Patent. Left external iliac artery: Patent. Left common femoral artery: Patent. Visualized left superficial and deep femoral arteries: Patent. NON-ANGIOGRAPHIC FINDINGS: Trachea and Airways: Patent without evidence of tracheal or endobronchial lesion. Lungs and Pleura: Mild bibasilar atelectasis. There are again a few scattered less than 4 mm pulmonary nodules, stable. Very trace bilateral pleural effusions. No pneumothorax. Mediastinum and rochelle: No mass or hematoma. No mediastinal or hilar lymphadenopathy. No esophageal abnormality. Heart: Heart is normal in size. No pericardial effusion. Chest Wall Soft Tissues: Normal. Diaphragm : No significant abnormality. Liver: Normal. Gallbladder: No CT evidence of gallbladder pathology. Bile ducts: No biliary ductal dilation. Spleen: Improved splenomegaly, now approximately 16.9 cm.. Pancreas: Normal. Adrenal glands: Normal. Kidneys and ureters: No hydronephrosis, stones, or suspicious masses. Bladder: Normal. Reproductive organs: Unremarkable. Stomach, small bowel, and large bowel: Normal. Peritoneum and retroperitoneum: No ascites or pneumoperitoneum. No omental or mesenteric lesions. Lymph nodes: No enlarged lymph nodes. Abdominal and pelvic wall: There is atrophy of the abdominal wall musculature. Bones: No acute abnormality. Multilevel degenerative changes of the spine. Chronic T11 compression fracture. IMPRESSION: No evidence of an aortic dissection. No evidence of central pulmonary embolism. Very minimal bilateral pleural effusions. Improved splenomegaly. I have personally reviewed the images and I agree with this report. WSN: [id number] Ordering Physician: Apryl Kovacs Dictated By: Raina Díaz DO Dictated Date/Time: 05/03/22 8:40 am Reviewed By: Nory Soria MD Signed By: Nory Soria MD Signed Date/Time: 05/03/22 8:45 am Transcribed By: LEATHA Transcribed Date/Time: 05/03/22 8:23 am * Exam Date Time Procedure Performing Provider Status 05/03/22 6:34 AM Chest Portable Jamila Cruz ; Auth (Verified) Notes: (Chest Portable) Reason For Exam: Chest Pain;Other: RESULT: Chest Portable Chest Portable Reason: Other:; Chest Pain; Clinical Question(s): CHF COMPARISON: 02/05/2022. FINDINGS: LINES AND TUBES: None. LUNGS AND PLEURA: Clear lungs. Normal pulmonary vascularity. No pleural effusion. No pneumothorax. HEART, MEDIASTINUM AND ROCHELLE: Heart is normal in size. Normal mediastinal and hilar contour. BONES AND SOFT TISSUES: No acute abnormality. IMPRESSION: No acute abnormality. WSN: [id number] Ordering Physician: Apryl Kovacs Dictated By: Nory Soria MD Dictated Date/Time: 05/03/22 7:54 am Reviewed By: Nory Soria MD Signed By: Nory Soria MD Signed Date/Time: 05/03/22 7:54 am Transcribed By: LEATHA Transcribed Date/Time: 05/03/22 7:53 am Vital Signs Most recent to oldest [Reference Range]: 1 2 3 Oxygen Saturation [94-100 %] 97 % (05/03/22 12:56 PM) 99 % (05/03/22 11:23 AM) 97 % (05/03/22 8:43 AM) Pulse Rate [55-90 bpm] 98 bpm *H* (05/03/22 12:56 PM) 98 bpm *H* (05/03/22 11:23 AM) 86 bpm (05/03/22 8:43 AM) Blood Pressure [90-138/55-84 mm Hg] 130/75mm Hg (05/03/22 12:56 PM) 137/96mm Hg (05/03/22 11:23 AM) 137/101mm Hg (05/03/22 8:43 AM) Respiratory Rate [16-30 br/min] 16 br/min (05/03/22 12:56 PM) 18 br/min (05/03/22 11:23 AM) 18 br/min (05/03/22 9:17 AM) Temperature [96.8-100.4 DegF] 98.3 DegF (05/03/22 6:06 AM) Liters per Minute 2 L/min (05/03/22 11:23 AM) 2 L/min (05/03/22 8:43 AM) Mode of Delivery (Oxygen) Room air (05/03/22 12:56 PM) Nasal cannula (05/03/22 11:23 AM) Nasal cannula (05/03/22 8:43 AM) Temperature Route Oral (05/03/22 6:06 AM) Social History Social History Type Response Smoking Status Never entered on: 05/15/18 Sex Note * Salvador WILKINS, Margot Paz: PERFORM Event Display: Patient Education Leaflets Authored Date: Uncertain Causes of Chest Pain ?? [id number] Uncertain Causes of Chest Pain Chest pain can happen for a number of reasons. Sometimes the cause can't be determined. If your??condition does not seem serious, and your pain does not appear to be coming from your heart, your healthcare provider may recommend watching it closely. Sometimes the signs of a serious problem take more time to appear. Many problems not related to your heart can cause chest pain. These include: ??? Musculoskeletal. Costochondritis is an inflammation of the tissues around the ribs that can occur from trauma or overuse injuries, or a strain of the muscles of the chest wall. ??? Respiratory. Pneumonia, collapsed lung (pneumothorax), or inflammation of the lining of the chest and lungs (pleurisy). ??? Gastrointestinal. Esophageal reflux, heartburn, ulcers, or gallbladder disease. ??? Anxiety and panic disorders ??? Nerve compression and inflammation ??? Rare problems such as aortic aneurysm or aortic dissection (a swelling of the large artery coming out of the heart or a tear in the wall of the artery), or pulmonary embolism (a blood clot in the lungs). Home care After your visit, follow these recommendations: ??? Rest today and avoid strenuous activity. ??? Take any prescribed medicine as directed. ??? Be aware of any recurrent chest pain and notice any changes ?? Follow-up care Follow up with your healthcare provider if you don't start to feel better within 24 hours, or as advised. ?? Call 911 Call 911 if any of these occur: ??? A change in the type of pain: if it feels different, becomes more severe, lasts longer, or begins to spread into your shoulder, arm, neck, jaw or back ??? Shortness of breath or increased pain with breathing ??? Weakness, dizziness, or fainting ??? Rapid heartbeat ??? Crushing sensation in your chest ??? Coughing up more than a small amount of blood. ?? When to seek medical advice Call your healthcare provider right away if any of the following occur: ??? Cough with dark coloredsputum (phlegm) or small amount of blood ??? Fever of 100.4??F??(38??C) or higher, or as directed by your healthcare provider ??? Swelling, pain or redness in one leg ?? Last Reviewed Date: 2021 ?? [id number] [employer]. All rights reserved. This information is not intended as a substitute for professional medical care. Always follow your healthcare professional's instructions. ?? * BHSPowerscribe , CIS S: TRANSCRIMEDINA Lobato MD, Kaz Castro: VERIFY Event Display: Result: Authored Date: [id number] US Doppler Ext Lower Venous Right Hx of Present Illness: woke up 2-3hr ago, substernal CP radiating down L arm, sharp, stabbing , allergic to ASA, cardiac cath in Sept, hx afib, on thinners, takes diltiazem; Reason: Pain in limb; Clinical Question(s): Thrombus COMPARISON: 02/06/2022 IMAGING TECHNIQUE: Ultrasound of the veins from the groin through the calf was performed using grayscale, color, and spectral Doppler ultrasound assessing for complete compressibility and normal flowcharacteristics. FINDINGS: Common femoral vein: Patent. No thrombosis. Femoral vein: Patent. No thrombosis. Popliteal vein: Patent. No thrombosis. Gastrocnemius veins: The visualized portions are patent without evidence of thrombosis. Peroneal veins: The visualized portions are patent without evidence of thrombosis. Posterior tibial veins: The visualized portions are patent without evidence of thrombosis. Contralateral common femoral vein: Patent. No thrombosis. OTHER FINDINGS: There is diffuse calf edema. IMPRESSION: No evidence of deep venous thrombosis. WSN: [id number] Ordering Physician: Apryl Kovacs Dictated By: Kaz Lobato MD Dictated Date/Time: 05/03/22 8:55 am Reviewed By: Kaz Lobato MD Signed By: Kaz Lobato MD Signed Date/Time: 05/03/22 8:55 am Transcribed By: LEATHA Transcribed Date/Time: 05/03/22 8:47 am Portable XR Chest Views * FRENCH Liao S: Nory Branch MD: VERIFY Event Display: Result: Authored Date: [id number] Chest Portable Reason: Other:; Chest Pain; Clinical Question(s): CHF COMPARISON: 02/05/2022. FINDINGS: LINES AND TUBES: None. LUNGS AND PLEURA: Clear lungs. Normal pulmonary vascularity. No pleural effusion. No pneumothorax. HEART, MEDIASTINUM AND ROCHELLE: Heart is normal in size. Normal mediastinal and hilar contour. BONES AND SOFT TISSUES: No acute abnormality. IMPRESSION: No acute abnormality. WSN: [id number] Ordering Physician: Apryl Kovacs Dictated By: Nory Soria MD Dictated Date/Time: 05/03/22 7:54 am Reviewed By: Nory Soria MD Signed By: Nory Soria MD Signed Date/Time: 05/03/22 7:54 am Transcribed By: LEATHA Transcribed Date/Time: 05/03/22 7:53 am CTA Abdominal vessels and Pelvis vessels W contrast IV * SHOLASPowerkateyrimedina , CIS S: Nory Branch MD: VERIFY Raina Díaz DO: SIGN Event Display: Result: Authored Date: [id number] EXAMINATION: CT Angio Chest, CT Angio Abdomen and Pelvis INDICATION: Hx of Present Illness: woke up 2-3hr ago, substernal chest pain radiating down left arm. Reason: Aortic disease, nontraumatic; Clinical Question(s): Aortic Dissection. TECHNIQUE: An initial noncontrast CT of the chest was performed. Spiral CTA of the chest, abdomen, and pelvis was performed after rapid IV contrast administration with cardiac gating triggered by an AMANDA on the aorta. Images are formatted in multiple planes using 2-D multiplanar and 3-D maximum intensity projection. Gated axial images through the aortic root were also acquired during a separate 2nd injection of IV contrast with separate reconstructions of this data set formatted in multiple planes using 2-D multiplanar and 3-D maximum intensity projection. 100 cc of Omnipaque 300 was administered intravenously. Weight-based protocol using automatic tube modulation was used to optimize exposure parameters. CTDIvol Body: 12.90 mGy, DLP Body: 1251 mGy*cm. COMPARISONS: CT abdomen and pelvis 05/27/2019. CTA chest 02/05/2022 ANGIOGRAPHIC FINDINGS: No aortic dissection or aneurysm. Normal three vessel arch without branch vessel stenosis. Pulmonary arteries are normal in caliber. No evidence of central pulmonary embolism on this study performed without dedicated technique. Abdominal aorta: No aortic aneurysm or dissection. Celiac axis: Patent celiac axis. Unchanged normal variant tiny branching artery arising off the proximal abdominal aorta above the celiac axis (series 608 image 17) also seen on CT abdomen/pelvis of 05/27/2019. Superior mesenteric artery: Patent. Right renal artery: Patent. Left renal artery: Patent. Inferior mesenteric artery: Patent. Right common iliac artery: Patent. Right internal iliac artery: Patent. Right external iliac artery: Patent. Right common femoral artery: Patent. Visualized right superficial and deep femoral arteries: Patent. Left common iliac artery: Patent. Left internal iliac artery: Patent. Left external iliac artery: Patent. Left common femoral artery: Patent. Visualized left superficial and deep femoral arteries: Patent. NON-ANGIOGRAPHIC FINDINGS: Trachea and Airways: Patent without evidence of tracheal or endobronchial lesion. Lungs and Pleura: Mild bibasilar atelectasis. There are again a few scattered less than 4 mm pulmonary nodules, stable. Very trace bilateral pleural effusions. No pneumothorax. Mediastinum and rochelle: No mass or hematoma. No mediastinal or hilar lymphadenopathy. No esophageal abnormality. Heart: Heart is normal in size. No pericardial effusion. Chest Wall Soft Tissues: Normal. Diaphragm : No significant abnormality. Liver: Normal. Gallbladder: No CT evidence of gallbladder pathology. Bile ducts: No biliary ductal dilation. Spleen: Improved splenomegaly, now approximately 16.9 cm.. Pancreas: Normal. Adrenal glands: Normal. Kidneys and ureters: No hydronephrosis, stones, or suspicious masses. Bladder: Normal. Reproductive organs: Unremarkable. Stomach, small bowel, and large bowel: Normal. Peritoneum and retroperitoneum: No ascites or pneumoperitoneum. No omental or mesenteric lesions. Lymph nodes: No enlarged lymph nodes. Abdominal and pelvic wall: There is atrophy of the abdominal wall musculature. Bones: No acute abnormality. Multilevel degenerative changes of the spine. Chronic T11 compression fracture. IMPRESSION: No evidence of an aortic dissection. No evidence of central pulmonary embolism. Very minimal bilateral pleural effusions. Improved splenomegaly. I have personally reviewed the images and I agree with this report. WSN: [id number] Ordering Physician: Apryl Kovacs Dictated By: Raina Díaz DO Dictated Date/Time: 05/03/22 8:40 am Reviewed By: Nory Soria MD Signed By: Nory Soria MD Signed Date/Time: 05/03/22 8:45 am Transcribed By: LEATHA Transcribed Date/Time: 05/03/22 8:23 am CTA Chest vessels W contrast IV * [facility] , CIS S: TRANSCRIBE Nory Soria MD: VERIFY Raina Díaz DO: SIGN Event Display: Result: Authored Date: EXAMINATION: CT Angio Chest, CT Angio Abdomen and Pelvis INDICATION: Hx of Present Illness: woke up 2-3hr ago, substernal chest pain radiating down left arm. Reason: Aortic disease, nontraumatic; Clinical Question(s): Aortic Dissection. TECHNIQUE: An initial noncontrast CT of the chest was performed. Spiral CTA of the chest, abdomen, and pelvis was performed after rapid IV contrast administration with cardiac gating triggered by an AMANDA on the aorta. Images are formatted in multiple planes using 2-D multiplanar and 3-D maximum intensity projection. Gated axial images through the aortic root were also acquired during a separate 2nd injection of IV contrast with separate reconstructions of this data set formatted in multiple planes using 2-D multiplanar and 3-D maximum intensity projection. 100 cc of Omnipaque 300 was administered intravenously. Weight-based protocol using automatic tube modulation was used to optimize exposure parameters. CTDIvol Body: 12.90 mGy, DLP Body: 1251 mGy*cm. COMPARISONS: CT abdomen and pelvis 05/27/2019. CTA chest 02/05/2022 ANGIOGRAPHIC FINDINGS: No aortic dissection or aneurysm. Normal three vessel arch without branch vessel stenosis. Pulmonary arteries are normal in caliber. No evidence of central pulmonary embolism on this study performed without dedicated technique. Abdominal aorta: No aortic aneurysm or dissection. Celiac axis: Patent celiac axis. Unchanged normal variant tiny branching artery arising off the proximal abdominal aorta above the celiac axis (series 608 image 17) also seen on CT abdomen/pelvis of 05/27/2019. Superior mesenteric artery: Patent. Right renal artery: Patent. Left renal artery: Patent. Inferior mesenteric artery: Patent. Right common iliac artery: Patent. Right internal iliac artery: Patent. Right external iliac artery: Patent. Right common femoral artery: Patent. Visualized right superficial and deep femoral arteries: Patent. Left common iliac artery: Patent. Left internal iliac artery: Patent. Left external iliac artery: Patent. Left common femoral artery: Patent. Visualized left superficial and deep femoral arteries: Patent. NON-ANGIOGRAPHIC FINDINGS: Trachea and Airways: Patent without evidence of tracheal or endobronchial lesion. Lungs and Pleura: Mild bibasilar atelectasis. There are again a few scattered less than 4 mm pulmonary nodules, stable. Very trace bilateral pleural effusions. No pneumothorax. Mediastinum and rochelle: No mass or hematoma. No mediastinal or hilar lymphadenopathy. No esophageal abnormality. Heart: Heart is normal in size. No pericardial effusion. Chest Wall Soft Tissues: Normal. Diaphragm : No significant abnormality. Liver: Normal. Gallbladder: No CT evidence of gallbladder pathology. Bile ducts: No biliary ductal dilation. Spleen: Improved splenomegaly, now approximately 16.9 cm.. Pancreas: Normal. Adrenal glands: Normal. Kidneys and ureters: No hydronephrosis, stones, or suspicious masses. Bladder: Normal. Reproductive organs: Unremarkable. Stomach, small bowel, and large bowel: Normal. Peritoneum and retroperitoneum: No ascites or pneumoperitoneum. No omental or mesenteric lesions. Lymph nodes: No enlarged lymph nodes. Abdominal and pelvic wall: There is atrophy of the abdominal wall musculature. Bones: No acute abnormality. Multilevel degenerative changes of the spine. Chronic T11 compression fracture. IMPRESSION: No evidence of an aortic dissection. No evidence of central pulmonary embolism. Very minimal bilateral pleural effusions. Improved splenomegaly. I have personally reviewed the images and I agree with this report. WSN: [id number] Ordering Physician: Apryl Kovacs Dictated By: Raina Díaz DO Dictated Date/Time: 05/03/22 8:40 am Reviewed By: Nory Soria MD Signed By: Nory Soria MD Signed Date/Time: 05/03/22 8:45 am Transcribed By: LEATHA Transcribed Date/Time: 05/03/22 8:23 am Patient Care team information Care Team Personnel Name: Gladis Carrizales RN Position: [facility] RN Member Role: Primary Care Nurse Name: Ebony Santoyo RN Position: [facility] RN Member Role: Primary Care Nurse Name: Siobhan Ko RN Position: [facility] RN Member Role: Primary Care Nurse Name: Evette Marrero Position: [facility] RN Supv Member Role: Primary Care Nurse Name: Aviva Howard RN Position: [facility] RN Member Role: Primary Care Nurse Name: Hilda Doyle RN Position: [facility] RN Member Role: Primary Care Nurse Name: Kimmy Ahumada NP Position: [facility] Associate Professional Member Role: Primary Care Nurse Address: Address: [address] [place] [id number]- Name: Bruce Mccurdy MD Position: [facility] Renal MD Member Role: Lifetime Consulting Physician Address: Address: [address] [place] [address], [address] [facility] [place], [place] [address] Name: Cristo Elias RN Position: [facility] RN Member Role: Primary Care Nurse Name: Malika Richards RN Position: [facility] Hospital Advertising Material Distributor Member Role: Primary Care Nurse Name: JO GONZALEZ RN Position: [facility] RN Member Role: Primary Care Nurse Name: Shelby Luna RN Position: [facility] RN Member Role: Primary Care Nurse Name: Sarina Camejo RN Position: [facility] RN Member Role: Primary Care Nurse Name: Lachelle Shine RN Position: [facility] RN Member Role: Primary Care Nurse Name: Leilani Lerma RN Position: [facility] HBO Wound Member Role: Primary Care Nurse Name: Sandrita Portillo LPN Position: [facility] RN Member Role: Primary Care Nurse Name: Corina Munoz RN Position: [facility] RN Member Role: Primary Care Nurse Name: Vania Hernandez Position: [facility] RN Member Role: Primary Care Nurse Name: Mukul Dougherty RN Position: [facility] RN Member Role: Primary Care Nurse Name: Hammad Gambino RN Position: [facility] RN Member Role: Primary Care Nurse Name: Kenia Rao RN Position: [facility] RN Member Role: Primary Care Nurse Name: Michele Villavicencio RN Position: [facility] RN Member Role: Primary Care Nurse Name: Brown Parada MD Position: [facility] Primary Care Physician Member Role: PCP Address: Address: [address] [place] [address]- Name: Charlette Lopez RN Position: [facility] RN Member Role: Primary Care Nurse Name: Elena Sheikh RN Position: [facility] RN Member Role: Primary Care Nurse Name: Theodora Serna RN Position: [facility] PCO RN Member Role: Primary Care Nurse Name: Yang Silva RN Position: [facility] RN Member Role: Primary Care Nurse Name: Xiomara Mario RN Position: [facility] RN Member Role: Primary Care Nurse Name: Meg Norman RN Position: [facility] RN Member Role: Primary Care Nurse Name: Latanya Garza RN Position: [facility] RN Member Role: Primary Care Nurse Name: Jaimie Gibson RN Position: [facility] RN Member Role: Primary Care Nurse Name: Carmen Bruner RN Position: [facility] RN Member Role: Primary Care Nurse Name: Kirill Mccartney RN Position: [facility] RN Member Role: Primary Care Nurse Name: Chacha Hassan RN Position: [facility] RN Member Role: Primary Care Nurse Name: Earlene Grayson RN Position: [facility] SN RN Member Role: Primary Care Nurse Name: Cem Carroll MD Position: [facility] Renal MD Member Role: Lifetime Consulting Physician Address: Address: [address] [place] [address] [facility] [place] [address]- Name: Eusebia Hassan RN Position: [facility] RN Member Role: Primary Care Nurse Name: Kirill Tate MD Position: [facility] ED Medicine MD Member Role: Admitting Physician Address: Address: [address] [place] [address]- Name: Salvador WILKINS, Margot Paz Position: [facility] Resident Member Role: ED Resident Address: Address: [address] [place] [address] [place] [address]- Name: Clementine Newell Position: [facility] ED TA [facility] Name: Varinder Ramesh RN Position: [facility] ED RN W/OE and Tasks Member Role: Patient Care Provider Care Team Related Persons Name: NORY BRUNER Address: home [address] [place] [id number] Name: ANYA DE JESUS Address: home [address] [place] [id number]
--- OUTSIDE RECORDS SUMMARY | 2022-10-04 17:48 | XMS_ITS | Continuity of Care Document ---
Author Name Unknown Organization [facility] Address [address] [place] [address]- Care Team Providers Care Skatesman Name Role Phone Sanaz WILKINS, Matheus Castro Primary Care Physician Encounter [facility] Date(s): 04/02/21 - 05/02/21 [facility] Adult [address] [place] [address]- Allergies, Adverse Reactions, Alerts Substance Reaction Severity [...] kyle tetanus/diphtheria/pertussis, acel(Tdap) 05/07/09 Given 1Result Comment: [id number] 2Result Comment: [id number] 3Result Comment: [05/15/2018] 65575-295-20 Medications acetaminophen 325 mg oral tablet 650 mg, By Mouth, Every 4 hours, PRN, Refills 0, Maintenance, Pain , Mild, 12/12/19 13:05:00 EDT Start Date: 12/12/19 Status: Ordered apixaban 5 mg oral tablet 1 tablet = 5 mg, By Mouth, 2 times a day, # 60 tablet, 3 Refills, Maintenance, 01/13/21 15:09:00 EDT, Tablet, [facility], Partial fill upon patient request [...] 01/13/21 15:09:00 EDT, Route to Pharmacy Electronically, [facility], Partial fill upon patient request if [...] 01/13/21 15:09:00 EDT, Route to Pharmacy Electronically, [facility], Partial fill upon patient request [...] 01/18/21 11:37:00 EDT, Route to Pharmacy Electronically, [facility], Partial fill upon patient request if the prescription is for a errol... Start Date: 01/18/21 Status: Ordered Flonase 50 mcg/inh nasal spray 1 sprays, Nares, Both, 2 times a day, # 16 Gm, 11 Refills, Maintenance, 07/08/20 16:47:00 EST, [place], [facility], 1 sprays [...] Refills 0, Tot. Refills 0, Maintenance, dx: [id number]. 40, oxygen dependence Z99.81, 01/27/21 11:50:00 EDT, [...] 01/18/21 11:37:00 EDT, Route to Pharmacy Electronically, [facility], [facility], Partial fill upon patient request if [...] 04/02/21 8:22:00 EDT, Route to Pharmacy Electronically, [facility], 190, cm, 01/23/21 8:35:00 EDT, Height, 153, kg, 01/14/21... Start Date: 04/02/21 Status: Ordered ProAir HFA 90 mcg/inh inhalation aerosol 2 puffs, Inhalation, Every 4 hours, PRN Wheezing/Shortness of Breath, # 1 each, 5 Refills, Maintenance, 06/27/20 16:56:00 EST, [facility], Partial fill upon patient request [...] Painful peripheral neuropath y - NOS(Confirmed) Active intermediate prescription benzo diazepine use(Confirmed) Active Limited mobility(Confirmed) Active Non-insulin dependent type 2 diabetes mellitus(Confirmed) Active Social History Social History Type Response Smoking Status Never entered on: 05/15/18 Sex
--- OUTSIDE RECORDS SUMMARY | 2022-10-04 17:48 | XMS_ITS | Continuity of Care Document ---
Author Name Unknown Organization [facility] Address [address] [place] [address]- Care Team Providers Care Wire Coater Name Role Phone Sanaz WILKINS, Matheus Castro Primary Care Physician [phone] Encounter [facility] Date(s): 07/14/20 - 08/13/20 [facility] Adult [address] [place] [address]- Allergies, Adverse Reactions, Alerts Substance Reaction Severity [...] kyle tetanus/diphtheria/pertussis, acel(Tdap) 05/07/09 Given 1Result Comment: [id number] 2Result Comment: [id number] 3Result Comment: [05/15/2018] 19970-677-70 Medications acetaminophen 325 mg oral tablet 650 mg, By Mouth, Every 4 hours, PRN, Refills 0, Maintenance, Pain , Mild, 12/12/19 13:05:00 EDT Start Date: 12/12/19 Status: Ordered albuterol CFC free 90 mcg/inh inhalation aerosol 2, puffs, Inhalation, Every 4 hours, PRN, # 18 Gm, Refills 5, Tot. Refills 5, Maintenance, 06/24/2115:37:00 EST, Aerosol, Route to Pharmacy Electronically, [id number], [facility], 191, cm, 06/24/20 13:40:00 EST,... Start Date: 06/24/20 Status: Ordered atorvastatin 80 mg oral tablet [...] 05/07/20 10:14:00 EST, Route to Pharmacy Electronically, [facility], 191, cm, 12/27/19 12:20:00 EDT, Height, 193.5, kg, 05/21/19 5:38:00 EST, Dry Weight Start Date: 05/07/20 Stop Date: 11/03/20 Status: Ordered cyanocobalamin 1000 mcg oral tablet, extended release 1 tablet = 1,000 mcg, By Mouth, Daily, # 30 tablet, 11 Refills, Maintenance, 02/21/20 10:38:00 EDT,[facility], 191, cm, 12/27/19 [...] EDT, Route to Pharmacy Electronically, [facility], 191, cm, 07/23/2013:30:00 EST, Height, 193.5, kg, 05/21/19 5:38:00 EST,... Start Date: 12/12/19 Status: Ordered Flonase 50 mcg/inh nasal spray 1 sprays, Nares, Both, 2 times a day, # 16 Gm, 11 Refills, Maintenance, 07/08/20 16:47:00 EST, [place], [facility], 1 sprays Nares, Both 2 times a day, 191, cm, 06/24/20 13:40:00 EST, Height, 193.5, kg, 05/21/19 5:38:00 EST, Dry Weight Start Date: 07/08/20 Status: Ordered gabapentin 300 mg oral capsule 300 mg, 1, capsule, By Mouth, 4 times a day, # 120 capsule, Refills 11, Tot. Refills 11, Maintenance, 07/24/20 17:44:00 EST, Route to Pharmacy Electronically, [facility], 191, cm, 06/24/20 13:40:00 EST, Height, 193.5, kg, 05/21/19 5:38:00... Start Date: 07/24/20 Stop Date: 07/19/21 Status: Ordered hydrOXYzine hydrochloride 25 mg oral [...] EDT, Route to Pharmacy Electronically, [facility], 191, cm, 12/27/2011:20:00 EDT, Height, 193.5, kg, 05/21/19 5:38:00 EST,... Start Date: 03/31/20 Status: Ordered lisinopril 40 mg oral tablet 1 tablet = 40 mg, By Mouth, Daily, APPOINTMENT 02/26/20, # 10 tablet, 0 Refills, Maintenance, 02/22/20 13:44:00 EDT, Tablet, [facility], 191, cm, 12/27/19 12:20:00 EDT, [...] anxiety, # 90 tablet, 2 Refills, Maintenance, 07/23/20 16:59:00 EST, Tablet, [facility], 191, cm, 06/24/20 13:40:00 EST, Height, 193.5, kg, 05/21/19 5:38:00 EST, Dry Weight Start Date: 07/23/20 Status: Ordered metFORMIN 1000 mg oral tablet 1 tablet, By Mouth, Daily in AM, # 90 Unknown, 11 Refills, Maintenance, 08/08/20 12:45:00 EST, [facility], 191, cm, 06/24/20 13:40:00 EST, Height, 193.5, kg, 05/21/19 5:38:00 EST, Dry Weight Start Date: 08/08/20 Status: Ordered Metoprolol Succinate ER 50 mg oral tablet, extended release 1 tablet = 50 mg, By Mouth, Daily, # 90 tablet, 3 Refills, Soft Stop, 05/07/20 13:32:00 EST, [facility], 191, cm, 12/27/19 12:20:00 EDT, Height, 193.5, kg, 05/21/19 5:38:00 EST, Dry Weight Start Date: 05/07/20 Status: Ordered nystatin topical 011211 u/gm powder See Instructions, Topically 2 times [...] MORNING & TAKE 4 CAPSULES IN THE EVENING.., #180 Unknown, 3 Refills, Maintenance, [facility], 191, cm, 06/24/20 13:40:00 EST, Height, 193.5, kg, 05/21/19 5:38:00 EST, Dry Weight Start Date: 07/08/20 Status: Ordered prazosin 5 mg oral capsule 5 mg, 1, capsule, By Mouth, Daily at bedtime, # 30 capsule, Refills 5, Tot. Refills 5, Maintenance,07/19/19 15:02:00 EST, Route to Pharmacy Electronically, [facility], 191, cm, 07/18/19 14:17:00 EST, Height, 193.5, kg, 05/21/19 5:38:00 E... Start Date: 07/19/19 Status: Ordered ProAir HFA 90 mcg/inh inhalation aerosol 2 puffs, Inhalation, Every 4 hours, PRN Wheezing/Shortness of Breath, # 1 each, 5 Refills, Maintenance, 06/27/20 16:56:00 EST, [facility], Partial fill [...] 02/19/20 9:52:00 EDT, Route to Pharmacy Electronically, [facility], 191, cm, 12/27/19 12:20:00EDT, Height, 193.5, kg, 05/21/19 5:38:00 EST, Dry Weight Start Date: 02/19/20 Status: Ordered traZODone 50 mg oral tablet 100 mg, 2, tablet, By Mouth, Daily at bedtime, # 60 tablet, Refills 5, Tot. Refills 5, Maintenance,06/23/20 11:13:00 EST, Route to Pharmacy Electronically, [facility], 191, cm, 12/27/19 12:20:00 EDT, Height, 193.5, kg, 05/21/19 5:38:00 E... Start Date: 06/23/20 Status: Ordered Vitamin D3 2000 intl units oral tablet 1 tablet = 2,000 International_Units, By Mouth, Daily, # 90 tablet, 1 Refills, Maintenance, 02/20/20 14:34:00 EDT, [facility], 191, cm, 12/27/19 12:20:00 EDT, [...] Painful peripheral neuropath y - NOS(Confirmed) Active assisted prescription benzo 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
--- OUTSIDE RECORDS SUMMARY | 2022-10-04 17:48 | XMS_ITS | Continuity of Care Document ---
Author Name Unknown Organization [facility] Aung lt Address [address] [place] [address]- Care Team Providers Care Stress Engineer Name Role Phone Matheus Yo MD Primary Care Physician Encounter [facility] [place] Date(s): 01/23/21 - 02/22/21 [facility] Adult [address] [place] [address]- Attending Physician: Admjane, [email or web address] Admitting Physician: Admtr, [...] kyle tetanus/diphtheria/pertussis, acel(Tdap) 05/07/09 Given 1Result Comment: [id number] 2Result Comment: [id number] 3Result Comment: [05/15/2018] [id number] Medications acetaminophen 325 mg oral tablet 650 mg, By Mouth, Every 4 hours, PRN, Refills 0, Maintenance, Pain , Mild, 12/12/19 13:05:00 EDT Start Date: 12/12/19 Status: Ordered apixaban 5 mg oral tablet 1 tablet = 5 mg, By Mouth, 2 times a day, # 60 tablet, 3 Refills, Maintenance, 01/13/21 15:09:00 EDT, Tablet, [facility] 3, Partial fill upon patient request if [...] Dry Weight Start Date: 04/28/20 Status: Ordered Cardizem CD 360 mg/24 hours oral capsule, extended release 1 capsule = 360 mg, By Mouth, Daily, # 30 capsule, 1 Refills, Maintenance, 01/13/21 15:09:00 EDT, CR Capsule, [facility] 3, Partial fill upon patient request if the prescription is for a schedule II opioid drug., 190, cm, 01/13/21 7:49:00... Start Date: 01/13/21 Stop Date: 03/14/21 Status: Ordered colchicine 0.6 mg oral tablet 0.6 mg, 1, tablet, By Mouth, 2 times a day, # 60 tablet, Refills 1, Tot. Refills 1, Maintenance, 01/13/21 15:09:00 EDT, Route to Pharmacy Electronically, [facility] 3, Partial fill upon patient request [...] Dry Weight Start Date: 02/21/20 Status: Ordered digoxin 0.25 mg oral tablet 0.25 mg, 1, tablet, By Mouth, Daily, # 30 tablet, Refills 0, Tot. Refills 0, Maintenance, 01/13/21 15:09:00 EDT, Route to Pharmacy Electronically, [facility] 3, Partial fill upon patient request if the prescription is for a schedule II opi... Start Date: 01/13/21 Stop Date: 02/12/21 Status: Ordered duloxetine 30 mg oral enteric coated capsule 1 capsule, By Mouth, 2 times a day, # 60 Unknown, 11 Refills, Maintenance, 10/03/20 15:43:00 EDT, [facility], 191, cm, 06/24/20 13:40:00 EST, Height, 193.5, kg, 05/21/19 5:38:00 EST,Dry Weight Start Date: 10/03/20 Status: Ordered Flomax 0.4 mg oral capsule 0.4 mg, 1, capsule, By Mouth, Daily at bedtime, # 30 capsule, Refills 0, Tot. Refills 0, Maintenance, 01/18/21 11:37:00 EDT, Route to Pharmacy Electronically, [facility] 3, Partial fill upon patient request if the prescription is for a errol... Start Date: 01/18/21 Status: Ordered Flonase 50 mcg/inh nasal spray 1 sprays, Nares, Both, 2 times a day, # 16 Gm, 11 Refills, Maintenance, 07/08/20 16:47:00 EST, [place], [facility], 1 sprays Nares, Both 2 times a day, 191, cm, 06/24/20 13:40:00 EST, Height, 193.5, kg, 05/21/19 5:38:00 EST, Dry Weight Start Date: 07/08/20 Status: Ordered gabapentin 300 mg oral capsule 300 mg, 1, capsule, By Mouth, 4 times a day, # 120 capsule, Refills 11, Tot. Refills 11, Maintenance, 07/24/20 17:44:00 EST, Route to Pharmacy Electronically, [facility], 191, cm, 06/24/20 13:40:00 EST, Height, 193.5, kg, 05/21/19 5:38:00... Start Date: 07/24/20 Stop Date: 07/19/21 Status: Ordered home pulse oximeter home pulse oximeter, See Instructions, # 1 each, Refills 0, Tot. Refills 0, Maintenance, dx: [id number]. 40, oxygen dependence Z99.81, 01/27/21 11:50:00 EDT, Supply Start Date: 01/27/21 Status: Ordered hydrOXYzine hydrochloride 25 mg oral tablet 1 tablet, By Mouth, 3 times a day, # 90 tablet, 11 Refills, [facility], 190, cm, 01/23/21 8:35:00 EDT, Height, 153, kg, 01/14/21 23:22:00 EDT, Dry Weight Start Date: 02/20/21 Status: Ordered isosorbide mononitrate 30 mg oral tablet, extended release 30 mg, 1, tablet, By Mouth, Daily in AM, # 30 tablet, Refills 0, Tot. Refills 0, Maintenance, 01/18/21 11:37:00 EDT, Route to Pharmacy Electronically, [facility] 3, Partial fill upon patient [...] anxiety, # 90 tablet, 2 Refills, Maintenance, 01/23/21 13:19:00 EDT, Tablet, [facility], 190, cm, 01/23/21 8:35:00 EDT, Height, 153,kg, 01/14/21 23:22:00 EDT, Dry Weight Start Date: 01/23/21 Status: Ordered metFORMIN 1000 mg oral tablet 1 tablet, By Mouth, Daily in AM, # 90 Unknown, 11 Refills, Maintenance, 08/08/20 12:45:00 EST, [facility], 191, cm, 06/24/20 13:40:00 EST, Height, 193.5, kg, 05/21/19 5:38:00 EST, Dry Weight Start Date: 08/08/20 Status: Ordered Metoprolol Succinate ER 50 mg oral tablet, extended release = 150 mg, By Mouth, Daily, # 150 each, 1 Refills, Soft Stop, 01/13/21 15:30:00 EDT, [facility] 3, 190, cm, 01/13/21 7:49:00 EDT, Height, 170.4, kg, 12/31/20 8:52:00 EDT, Dry Weight Start Date: 01/13/21 Stop Date: 03/14/21 Status: Ordered phenytoin 100 mg oral capsule, extended release See Instructions, TAKE 2 CAPSULES BY MOUTH IN THE MORNING & TAKE 4 CAPSULES IN THE EVENING., # 180 Unknown, 3 Refills, Maintenance, [facility], 191, cm, 06/24/20 13:40:00 EST, Height, 193.5, kg, 05/21/19 5:38:00 EST, Dry Weight Start Date: 11/10/20 Status: Ordered prazosin 5 mg oral capsule 5 mg, 1, capsule, By Mouth, Daily at bedtime, # 30 capsule, Refills 5, Tot. Refills 5, Maintenance,07/19/19 15:02:00 EST, Route to Pharmacy Electronically, [facility], 191, cm, 07/18/19 14:17:00 EST, Height, 193.5, kg, 05/21/19 5:38:00 E... Start Date: 07/19/19 Status: Ordered ProAir HFA 90 mcg/inh inhalation aerosol 2 puffs, Inhalation, Every 4 hours, PRN Wheezing/Shortness of Breath, # 1 each, 5 Refills, Maintenance, 06/27/20 16:56:00 EST, [facility], Partial fill upon patient request [...] tablet 1 tablet, By Mouth, Daily, # 30 Unknown, 5 Refills, Maintenance, 01/23/21 11:11:00 EDT, [facility], 190, cm, 01/23/21 8:35:00 EDT, Height, 153, kg, 01/14/21 23:22:00 EDT, Dry Weight Start Date: 01/23/21 Status: Ordered torsemide 20 mg oral tablet 2 tablet = 40 mg, By Mouth, Daily, # 60 tablet, 1 Refills, Maintenance, 01/13/21 15:10:00 EDT, Tablet, [facility] 3, Partial fill upon patient request if the prescription is for a schedule II opioid drug., 190, cm, 01/13/21 7:49:00 EDT, He... Start Date: 01/13/21 Stop Date: 03/14/21 Status: Ordered traZODone 50 mg oral tablet 100 mg, 2, tablet, By Mouth, Daily at bedtime, # 60 tablet, Refills 5, Tot. Refills 5, Maintenance,01/23/21 11:11:00 EDT, Route to Pharmacy Electronically, [facility], 190, cm, 01/23/21 8:35:00 EDT, Height, 153, kg, 01/14/21 23:22:00 EDT... Start Date: 01/23/21 Status: Ordered Vitamin D3 2000 intl units oral tablet 1 tablet, By Mouth, Daily, # 90 Unknown, 3 Refills, Maintenance, 11/10/20 16:52:00 EDT, [facility], 191, cm, 06/24/20 13:40:00 EST, Height, 193.5, kg, 05/21/19 5:38:00 EST, Dry Weight Start Date: 11/10/20 Status: Ordered Problem List Condition Effective Dates [...] Painful peripheral neuropath y - NOS(Confirmed) Active termination clerk prescription benzo diazepine use(Confirmed) Active Limited mobility(Confirmed) Active Non-insulin dependent type 2 diabetes mellitus(Confirmed) Active Social History Social History Type Response Smoking Status Never entered on: 05/15/18 Sex
--- OUTSIDE RECORDS SUMMARY | 2022-10-04 17:48 | XMS_ITS | Continuity of Care Document ---
Author Name Unknown Organization [facility] Address [address] [place] [id number]- Care Team Providers Care Financial Center Manager Name Role Phone Sanaz WILKINS, Matheus Castro Primary Care Physician Encounter [facility] Date(s): 02/19/20 - 03/20/20 [facility] Adult [address] [place] [address]- [facility] Allergies, Adverse Reactions, Alerts Substance Reaction Severity Status clindamycin Hives Active penicillin rash Active antivenin (black spider) Active aspirin Active Bee Stings Active Contrast Dye urticaria Active Latex anaphylaxis Active Immunizations Given and Recorded Vaccine Date Status Refusal Reason tetanus-diphtheria toxoids (Td) 1 07/18/19 Given pneumococcal 23-valent vaccine 2 07/18/19 Given influenza virus vaccine, inactivated 3 05/15/18 Gi kyle tetanus/diphtheria/pertussis, acel(Tdap) 05/07/09 Given 1Result Comment: [id number] 2Result Comment: [id number] 3Result Comment: [05/15/2018] [id number] Medications acetaminophen 325 mg oral tablet 650 [...] 10/25/19 8:57:00 EDT, Route to Pharmacy Electronically, [facility], 191, cm, 07/23/19 14:30:00EST, Height, 193.5, kg, 05/21/19 5:38:00 EST, Dry Weight Start Date: 10/25/19 Stop Date: 04/22/20 Status: Ordered cyanocobalamin 1000 mcg oral tablet, extended release 1 tablet = 1,000 mcg, By Mouth, Daily, # 30 tablet, 11 Refills, Maintenance, 02/21/20 10:38:00 EDT,[facility], 191, cm, 12/27/19 12:20:00 EDT, [...] EDT, Route to Pharmacy Electronically, [facility], 191, cm, 07/23/2013:30:00 EST, Height, 193.5, kg, 05/21/19 5:38:00 EST,... Start Date: 12/12/19 Status: Ordered Flonase 50 mcg/inh nasal spray 1 sprays, Nares, Both, 2 times a day, # 16 Gm, 0 Refills, Maintenance, 05/23/18 10:06:41 EST, [place], 1 sprays Nares, Both 2 times a day Start Date: 05/23/18 Status: Ordered gabapentin 300 mg oral capsule 300 mg, 1, capsule, By Mouth, Daily, APPOINTMENT 02/26/20, # 10 capsule, Refills 0, Tot. Refills 0, Maintenance, 02/22/20 13:44:00 EDT, Route to Pharmacy Electronically, [facility], 191, cm, 12/27/19 12:20:00 EDT, [...] EDT, Route to Pharmacy Electronically, [facility], 191, cm, 12/27/19 12:20:00 EDT, [...] Start Date: 08/06/19 Status: Ordered nystatin topical 492818 u/gm powder See Instructions, Topically 2 times [...] Maintenance,07/19/19 15:02:00 EST, Route to Pharmacy Electronically, [facility], 191, cm, 07/18/19 14:17:00 EST, Height, 193.5, kg, 05/21/19 5:38:00 E... Start Date: 07/19/19 Status: Ordered QUEtiapine 50 mg oral tablet 1 tablet = 50 mg, By Mouth, Daily, # 30 tablet, 5 Refills, Maintenance, 12/12/19 10:07:00 EDT, Tablet, [facility], 191, cm, 07/23/19 14:30:00 EST, Height, 193.5, kg, 05/21/19 5:38:00EST, Dry Weight Start Date: 12/12/19 Status: Ordered spironolactone 25 mg oral tablet 25 mg, 1, tablet, By Mouth, Daily, # 30 tablet, Refills 5, Tot. Refills 5, Maintenance, 02/19/20 9:52:00 EDT, Route to Pharmacy Electronically, [facility], 191, cm, 12/27/19 12:20:00EDT, Height, 193.5, kg, 05/21/19 5:38:00 EST, Dry Weight Start Date: 02/19/20 Status: Ordered traZODone 50 mg oral tablet 100 mg, 2, tablet, By Mouth, Daily at bedtime, # 60 tablet, Refills 5, Tot. Refills 5, Maintenance,02/01/20 10:29:00 EDT, Route to Pharmacy Electronically, [facility], 191, [...] Painful peripheral neuropath y - NOS(Confirmed) Active skilled nursing prescription benzo 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
--- OUTSIDE RECORDS SUMMARY | 2022-10-04 17:48 | XMS_ITS | Continuity of Care Document ---
Author Name Unknown Organization [facility] [place] lt Address [address] [place] [address]- Care Team Providers Care Nightman Name Role Phone Matheus Yo MD Primary Care Physician [place] [facility] [place]/26/20 [facility] [place] Adult [address] [place] [address]- [facility] Attending Physician: Artie FROST, Carmel Johnson Allergies, Adverse Reactions, Alerts Substance Reaction Severity [...] kyle tetanus/diphtheria/pertussis, acel(Tdap) 05/07/09 Given 1Result Comment: [id number] 2Result Comment: [id number] 3Result Comment: [05/15/2018] 55996-359-90 Medications acetaminophen 325 mg oral tablet 650 [...] Refills 0, Maintenance, To be obtained on Pedro 7/10. For acute kidney injury (N17.9). Please forward results to Matheus Yo MD., 12/12/19 13:51:00 EDT, Supply Start Date: 12/12/19 Status: Ordered clopidogrel 75 mg oral tablet 75 mg, 1, tablet, By Mouth, Daily, # 30 tablet, Refills 5, Tot. Refills 5, Maintenance, 10/25/19 8:57:00 EDT, Route to Pharmacy Electronically, [facility], 191, cm, 07/23/19 14:30:00EST, Height, 193.5, kg, 05/21/19 5:38:00 EST, Dry Weight Start Date: 10/25/19 Stop Date: 04/22/20 Status: Ordered cyanocobalamin 1000 mcg oral tablet, extended release 1 tablet = 1,000 mcg, By Mouth, Daily, # 30 tablet, 0 Refills, Maintenance, 01/25/20 16:01:00 EDT, [facility], 191, cm, 12/27/19 12:20:00 EDT, Height, 193.5, kg, 05/21/19 5:38:00 EST, Dry Weight Start Date: 01/25/20 Status: Ordered duloxetine 30 mg oral enteric [...] [facility], 191, cm, 07/23/2013:30:00 EST, Height, 193.5, kg, 05/21/19 5:38:00 EST,... Start Date: 12/12/19 Status: Ordered Flonase 50 mcg/inh nasal spray 1 sprays, Nares, Both, 2 times a day, # 16 Gm, 0 Refills, Maintenance, 05/23/18 10:06:41 EST, [place], 1 sprays Nares, Both 2 times a [...] 08/06/19 14:53:00 EST, Route to Pharmacy Electronically, [facility] [...] Start Date: 08/06/19 Status: Ordered nystatin topical 523211 u/gm powder See Instructions, Topically 2 times [...] Refills, Maintenance, 10/19/19 10:01:00 EDT, [facility], changed to 100mg due to being out of 200, 191, cm, 07/23/19 14:30:00 EST, Height, 193.5, kg, 1... Start Date: 10/19/19 Status: Ordered prazosin 5 mg oral capsule 5 mg, 1, capsule, By Mouth, Daily at bedtime, # 30 capsule, Refills 5, Tot. Refills 5, Maintenance,07/19/19 15:02:00 EST, Route to Pharmacy Electronically, [facility], 191, cm, 07/18/19 14:17:00 EST, Height, 193.5, kg, 05/21/19 5:38:00 E... Start Date: 07/19/19 Status: Ordered QUEtiapine 50 mg oral tablet 1 tablet = 50 mg, By Mouth, Daily, # 30 tablet, 5 Refills, Maintenance, 12/12/19 10:07:00 EDT, Tablet, [facility], 191, cm, 07/23/19 14:30:00 EST, Height, 193.5, kg, 05/21/19 5:38:00EST, Dry Weight Start Date: 12/12/19 Status: Ordered spironolactone 25 mg oral tablet 25 mg, 1, tablet, By Mouth, Daily, # 30 tablet, Refills 0, Tot. Refills 0, Maintenance, 01/25/20 16:01:00 EDT, Route to Pharmacy Electronically, [facility], 191, cm, 12/27/19 12:20:00 EDT, Height, 193.5, kg, 05/21/19 5:38:00 EST, Dry Weight Start Date: 01/25/20 Status: Ordered traZODone 50 mg oral tablet 100 mg, 2, tablet, By Mouth, Daily at bedtime, # 60 tablet, Refills 5, Tot. Refills 5, Maintenance,07/24/19 11:40:00 EST, Route to Pharmacy Electronically, [facility], 191, cm, 07/23/19 14:30:00 EST, Height, 193.5, kg, 05/21/19 5:38:00 E... 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
--- OUTSIDE RECORDS SUMMARY | 2022-10-04 17:48 | XMS_ITS | Continuity of Care Document ---
Author Name Unknown Organization [facility] Address [address] [place] [address]- Care Team Providers Care Produce Team Member Name Role Phone Matheus Yo MD Primary Care Physician [phone] Encounter [facility] [place] Date(s): 02/21/20 - 03/26/20 [facility] Adult [address] [place] [address]- [facility] Attending Physician: Matheus Yo MD Allergies, [...] kyle tetanus/diphtheria/pertussis, acel(Tdap) 05/07/09 Given 1Result Comment: [id number] 2Result Comment: [id number] 3Result Comment: [05/15/2018] 16618-585-54 Medications acetaminophen 325 mg oral tablet 650 [...] 10/25/19 8:57:00 EDT, Route to Pharmacy Electronically, [facility], 191, cm, 07/23/19 14:30:00EST, Height, 193.5, kg, 05/21/19 5:38:00 EST, Dry Weight Start Date: 10/25/19 Stop Date: 04/22/20 Status: Ordered cyanocobalamin 1000 mcg oral tablet, extended release 1 tablet = 1,000 mcg, By Mouth, Daily, # 30 tablet, 11 Refills, Maintenance, 02/21/20 10:38:00 EDT,[facility], 191, cm, 12/27/19 12:20:00 EDT, [...] EDT, Route to Pharmacy Electronically, [facility], 191, cm, 07/23/2013:30:00 EST, Height, 193.5, kg, 05/21/19 5:38:00 EST,... Start Date: 12/12/19 Status: Ordered Flonase 50 mcg/inh nasal spray 1 sprays, Nares, Both, 2 times a day, # 16 Gm, 0 Refills, Maintenance, 05/23/18 10:06:41 EST, [place], 1 sprays Nares, Both 2 times a [...] EDT, Route to Pharmacy Electronically, [facility], 191, cm, 12/27/19 12:20:00 EDT, [...] Start Date: 08/06/19 Status: Ordered nystatin topical 999690 u/gm powder See Instructions, Topically 2 times [...] Maintenance,07/19/19 15:02:00 EST, Route to Pharmacy Electronically, [facility], 191, cm, 07/18/19 14:17:00 EST, Height, 193.5, kg, 05/21/19 5:38:00 E... Start Date: 07/19/19 Status: Ordered QUEtiapine 50 mg oral tablet 1 tablet = 50 mg, By Mouth, Daily, # 30 tablet, 5 Refills, Maintenance, 12/12/19 10:07:00 EDT, Tablet, [facility], 191, cm, 07/23/19 14:30:00 EST, Height, 193.5, kg, 05/21/19 5:38:00EST, Dry Weight Start Date: 12/12/19 Status: Ordered spironolactone 25 mg oral tablet 25 mg, 1, tablet, By Mouth, Daily, # 30 tablet, Refills 5, Tot. Refills 5, Maintenance, 02/19/20 9:52:00 EDT, Route to Pharmacy Electronically, [facility], 191, cm, 12/27/19 12:20:00EDT, Height, 193.5, kg, 05/21/19 5:38:00 EST, Dry Weight Start Date: 02/19/20 Status: Ordered traZODone 50 mg oral tablet 100 mg, 2, tablet, By Mouth, Daily at bedtime, # 60 tablet, Refills 5, Tot. Refills 5, Maintenance,02/01/20 10:29:00 EDT, Route to Pharmacy Electronically, [facility], 191, cm, 12/27/19 12:20:00 EDT, Height, 193.5, kg, 05/21/19 5:38:00 E... 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
--- OUTSIDE RECORDS SUMMARY | 2022-10-04 17:48 | XMS_ITS | Continuity of Care Document ---
Author Name Unknown Organization [facility] [place] Address [address] [place] [id number]- Care Team Providers Care Parasitology Teacher Name Role Phone Tal WILKINS, Brown Paz Primary Care Physician [phone] [place] [facility] [place] 07/28/21 - 08/27/21 [facility] [place] Adult [address] [place] [address]- Allergies, Adverse Reactions, Alerts Substance Reaction Severity [...] 07/10/21 Give n influenza virus vaccine, inactivated 2 05/15/18 Gi kyle tetanus-diphtheria toxoids (Td) 3 07/18/19 Given pneumococcal 23-valent vaccine 4 07/18/19 Given tetanus/diphtheria/pertussis, acel(Tdap) 05/07/09 Given 1Early/Late Reason: Early/Late Reason: Med Not Available 2Result Comment: [05/15/2018] [id number] 3Result Comment: [id number] 4Result Comment: [id number] Medications acetaminophen 325 mg oral tablet 650 [...] Date: 03/27/21 Stop Date: 09/23/21 Status: Ordered cyanocobalamin 1000 mcg oral tablet, extended release 1 tablet = 1,000 mcg, By Mouth, Daily, BUBBLE PACK, # 28 tablet, 5 Refills, Maintenance, 02/23/21 16:53:00 EDT, [facility], 190, cm, 01/23/21 8:35:00 EDT, Height, 153, kg, 01/14/21 23:22:00 EDT, Dry Weight Start Date: 02/23/21 Status: Ordered [employer] Cozmo Glucometer See Instructions, # 1 each, [...] Gm, 11 Refills, Maintenance, 07/08/20 16:47:00 EST, [place], [facility], 1 sprays Nares, Both 2 times a day, 191, cm, 06/24/20 13:40:00 EST, Height, 193.5, kg, 05/21/19 5:38:00 EST, Dry Weight Start Date: 07/08/20 Status: Ordered gabapentin 300 mg oral capsule See Instructions, 1 capsule By Mouth 5 times a day, # 150 capsule, Refills 5, Tot. Refills 5, Maintenance, 07/30/21 14:09:00 EST, Instructions Replace Required Details, Route to Pharmacy Electronically, [facility], 190, cm, 07/27/21 12:49... Start Date: 07/30/21 Status: Ordered hydrOXYzine hydrochloride 25 mg oral tablet 1 tablet, By Mouth, 3 times a day, BUBBLE PACK, # 84 tablet, 5 Refills, Maintenance, 07/30/21 9:02:00 EST, [facility], 190, cm, [...] 0 Refills, Maintenance, 07/21/21 11:47:00 EST, Solution, [facility], Partial fill upon patient request [...] Date: 03/23/21 Stop Date: 05/22/21 Status: Ordered One Touch Fine Point Lancets See Instructions, # 200 each, Refills 5, Tot. Refills 5, Maintenance, use as directed for Type 2 Diabetes Mellitus, 07/21/21 11:43:00 EST, Supply, 190, cm, 04/03/21 10:25:00 EDT, Height, 153, kg, 01/14/21 23:22:00 EDT, Dry Weight Start Date: 07/21/21 Stop Date: 01/17/22 Status: Ordered phenytoin 100 mg oral capsule, [...] 04/02/21 8:22:00 EDT, Route to Pharmacy Electronically, [facility], 190, cm, 01/23/21 8:35:00 EDT, [...] Painful peripheral neuropath y - NOS(Confirmed) Active prison prescription benzo diazepine use(Confirmed) Active Limited mobility(Confirmed) Active Severe obesity(Confirmed) Active Non-insulin dependent type 2 diabetes mellitus(Confirmed) Active Social History Social History Type Response Smoking Status Never entered on: 05/15/18 Sex
--- OUTSIDE RECORDS SUMMARY | 2022-10-04 17:48 | XMS_ITS | Continuity of Care Document ---
Author Name Unknown Organization [facility] Aung Address [address] [place] [address]- Care Team Providers Care Dyed Raw Stock Blower Feeder Name Role Phone Sanaz WILKINS, Matheus Castro Primary Care Physician Encounter [facility] Date(s): 01/05/21 - 02/04/21 [facility] Adult [address] [place] [address]- Allergies, Adverse Reactions, Alerts Substance Reaction Severity [...] kyle tetanus/diphtheria/pertussis, acel(Tdap) 05/07/09 Given 1Result Comment: [id number] 2Result Comment: [id number] 3Result Comment: [05/15/2018] 22898-613-40 Medications acetaminophen 325 mg oral tablet 650 mg, By Mouth, Every 4 hours, PRN, Refills 0, Maintenance, Pain , Mild, 12/12/19 13:05:00 EDT Start Date: 12/12/19 Status: Ordered apixaban 5 mg oral tablet 1 tablet = 5 mg, By Mouth, 2 times a day, # 60 tablet, 3 Refills, Maintenance, 01/13/21 15:09:00 EDT, Tablet, [facility], Partial fill upon patient [...] Refills, Maintenance, 01/13/21 15:09:00 EDT, CR Capsule, [facility], Partial fill upon patient request if the prescription is for a schedule II opioid drug., 190, cm, 01/13/21 7:49:00... Start Date: 01/13/21 Stop Date: 03/14/21 Status: Ordered colchicine 0.6 mg oral tablet 0.6 mg, 1, tablet, By Mouth, 2 times a day, # 60 tablet, Refills 1, Tot. Refills 1, Maintenance, 01/13/21 15:09:00 EDT, Route to Pharmacy Electronically, [facility], Partial fill upon patient [...] 01/13/21 15:09:00 EDT, Route to Pharmacy Electronically, [facility], Partial fill upon patient request if [...] 01/18/21 11:37:00 EDT, Route to Pharmacy Electronically, [facility], Partial fill upon patient request if the prescription is for a errol... Start Date: 01/18/21 Status: Ordered Flonase 50 mcg/inh nasal spray 1 sprays, Nares, Both, 2 times a day, # 16 Gm, 11 Refills, Maintenance, 07/08/20 16:47:00 EST, [place], [facility], 1 sprays [...] Refills 0, Tot. Refills 0, Maintenance, dx: oinljfT08. 40, oxygen dependence Z99.81, 01/27/21 11:50:00 EDT, [...] Start Date: 04/09/20 Status: Ordered isosorbide mononitrate 30 mg oral tablet, extended release 30 mg, 1, tablet, By Mouth, Daily in AM, # 30 tablet, Refills 0, Tot. Refills 0, Maintenance, 01/18/21 11:37:00 EDT, Route to Pharmacy Electronically, [facility], Partial fill upon patient request if [...] Dry Weight Start Date: 01/23/21 Status: Ordered magnesium oxide 400 mg oral tablet 1 tablet = 400 mg, By Mouth, Daily, for 14 days, # 14 tablet, 0 Refills, Acute 02/12/21 16:58:00 EDT, 01/29/21 16:58:00 EDT, Tablet, [facility], Partial fill upon patient request if the prescription is for a schedule II opioid drug., 190,... Start Date: 01/29/21 Stop Date: 02/12/21 Status: Ordered metFORMIN 1000 mg oral tablet [...] 1 Refills, Soft Stop, 01/13/21 15:30:00 EDT, [facility], 190, cm, 01/13/21 7:49:00 EDT, Height, 170.4, kg, 12/31/20 8:52:00 EDT, Dry Weight Start Date: 01/13/21 Stop Date: 03/14/21 Status: Ordered phenytoin 100 mg oral capsule, extended release See Instructions, TAKE 2 CAPSULES BY MOUTH IN THE MORNING & TAKE 4 CAPSULES IN THE EVENING., # 180 Unknown, 3 Refills, Maintenance, [facility] [...] Refills, Maintenance, 01/23/21 11:11:00 EDT, [facility], 190, cm, 01/23/21 8:35:00 EDT, Height, 153, kg, 01/14/21 23:22:00 EDT, Dry Weight Start Date: 01/23/21 Status: Ordered torsemide 20 mg oral tablet 2 tablet = 40 mg, By Mouth, Daily, # 60 tablet, 1 Refills, Maintenance, 01/13/21 15:10:00 EDT, Tablet, [facility], Partial fill upon patient request if the prescription is for a schedule II opioid drug., 190, cm, 01/13/21 7:49:00 EDT, He... Start Date: 01/13/21 Stop Date: 03/14/21 Status: Ordered traZODone 50 mg oral tablet 100 mg, 2, tablet, By Mouth, Daily at bedtime, # 60 tablet, Refills 5, Tot. Refills 5, Maintenance,01/23/21 11:11:00 EDT, Route to Pharmacy Electronically, [facility], 190, cm, 01/23/21 8:35:00 EDT, Height, 153, kg, 01/14/21 23:22:00 EDT... 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
--- OUTSIDE RECORDS SUMMARY | 2022-10-04 17:48 | XMS_ITS | Continuity of Care Document ---
Author Name Unknown Organization [facility] Aung lt Address [address] [place] [address]- Care Team Providers Care Mine Supervisor Name Role Phone Tal WILKINS, Brown Paz Primary Care Physician [phone] Encounter [facility] [place] Date(s): 06/14/22 - 07/17/22 [facility] Adult [address] [place] [address]- Attending Physician: Not on Staff, Attending MD Allergies, Adverse Reactions, Alerts Substance Reaction [...] Reason: Med Not Available 2Result Comment: [05/15/2018] [id number] 3Result Comment: [id number] 4Result Comment: [id number] Medications albuterol CFC free 90 mcg/inh inhalation [...] Gm, 11 Refills, Maintenance, 07/08/20 16:47:00 EST, [place], [facility], 1 sprays [...] 04/02/22 5:55:00 EDT, Route to Pharmacy Electronically, [facility], 191, cm, 02/11/22 11:45:00 EDT, Height, 170, kg, 02/05/22 22:35:00 EDT, . Start Date: 04/02/22 Status: Ordered hydrOXYzine hydrochloride 25 mg oral tablet 1 tablet, By Mouth, 3 times a day, # 84 tablet, 5 Refills, Maintenance, 06/11/22 11:15:00 EST, [facility], 191, cm, 02/11/22 11:45:00 EDT, [...] COMMUNICATE SUGARS WITH PCP TO TITRATE LANTUS. [phone], 08/28... 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 Active Limited mobility Confirmed Active Severe obesity Confirmed Active Non-insulin dependent type 2 diabetes mellitus Confirmed Active Social History Social History Type Response Smoking Status Never entered on: 05/15/18 Sex History and physical note * Event Display: History and Physical Hospital Authored Date: Patient Care team information Care Team Personnel Name: Gladis Carrizales RN Position: [facility] RN Member Role: Primary Care Nurse Name: Ebony Santoyo RN Position: [facility] RN Member Role: Primary Care Nurse Name: Siobhan Ko RN Position: [facility] RN Member Role: Primary Care Nurse Name: Evette Marrero Position: [facility] RN Supv Member Role: Primary Care Nurse Name: Aviva Howard RN Position: [facility] RN Member Role: Primary Care Nurse Name: Hilda Doyle RN Position: [facility] RN Supv Member Role: Primary Care Nurse Name: Kimmy Ahumada NP Position: [facility] Associate Professional Member Role: Primary Care Nurse Address: Address: [address] [place] [address]- Name: Bruce Mccurdy MD Position: [facility] Renal MD Member Role: Lifetime Consulting Physician Address: Address: [address] [place] [address], [address] [facility] [place], [place] [address] Name: Malika Richards RN Position: [facility] [employer] Former Member Role: Primary Care Nurse Name: JO GONZALEZ RN Position: [facility] RN Member Role: Primary Care Nurse Name: Shelby Luna RN Position: [facility] RN Member Role: Primary Care Nurse Name: Sarina Camejo RN Position: [facility] RN Member Role: Primary Care Nurse Name: Lachelle Shine RN Position: [facility] RN Member Role: Primary Care Nurse Name: Leilani Lerma RN Position: [facility] HBO Wound Member Role: Primary Care Nurse Name: Sandrita Portillo LPN Position: [facility] RN Member Role: Primary Care Nurse Name: Corina Munoz RN Position: [facility] RN Member Role: Primary Care Nurse Name: Vania Hernandez Position: [facility] RN Member Role: Primary Care Nurse Name: Mukul Dougherty RN Position: [facility] RN Member Role: Primary Care Nurse Name: Hammad Gambino RN Position: [facility] RN Member Role: Primary Care Nurse Name: Kenia Rao RN Position: [facility] RN Member Role: Primary Care Nurse Name: Michele Villavicencio RN Position: [facility] RN Member Role: Primary Care Nurse Name: Brown Parada MD Position: [facility] Primary Care Physician Member Role: PCP Address: Address: [address] [place] [address]- [place] Name: Charlette Lopez RN Position: [facility] RN Member Role: Primary Care Nurse Name: Elena Sheikh RN Position: [facility] RN Member Role: Primary Care Nurse Name: Theodora Serna RN Position: [facility] PCO RN Member Role: Primary Care Nurse Name: Yang Silva RN Position: [facility] RN Member Role: Primary Care Nurse Name: Xiomara Mario RN Position: [facility] RN Member Role: Primary Care Nurse Name: Meg Norman RN Position: [facility] RN Member Role: Primary Care Nurse Name: Latanya Garza RN Position: [facility] RN Member Role: Primary Care Nurse Name: Jaimie Gibson RN Position: [facility] RN Member Role: Primary Care Nurse Name: Carmen Bruner RN Position: [facility] RN Member Role: Primary Care Nurse Name: Kirill Mccartney RN Position: [facility] RN Member Role: Primary Care Nurse Name: Chacha Hassan RN Position: [facility] RN Member Role: Primary Care Nurse Name: Earlene Grayson RN Position: [facility] SN RN Member Role: Primary Care Nurse Name: Cem Carroll MD Position: [facility] Renal MD Member Role: Lifetime Consulting Physician Address: Address: [address] [place] [address] [facility] [place] [address]- [place] Name: Eusebia Hassan RN Position: [facility] RN Member Role: Primary Care Nurse Care Team Related Persons Name: JIMENEZ BRUNER Address: [address] [place] [address] Name: LIZA ANYA Address: [address] [place] [address]
--- OUTSIDE RECORDS SUMMARY | 2022-10-04 17:48 | XMS_ITS | Continuity of Care Document ---
Author Name Unknown Organization [facility] Aung lt Address [address] [place] [address]- Care Team Providers Care Exercise Science Instructor Name Role Phone Tal WILKINS, Brown Paz Primary Care Physician [phone] Encounter [facility] Date(s): 09/11/21 - 10/11/21 [facility] Adult [address] [place] [address]- Allergies, Adverse Reactions, Alerts Substance Reaction Severity [...] Reason: Med Not Available 2Result Comment: [05/15/2018] [id number] 3Result Comment: [id number] 4Result Comment: [id number] Medications acetaminophen 325 mg oral tablet 650 [...] Gm, 11 Refills, Maintenance, 07/08/20 16:47:00 EST, [place], [facility], 1 sprays [...] Replace Required Details, Route to Pharmacy Electronically, [facility], 190, cm, 07/27/21 12:49... Start Date: 07/30/21 Status: Ordered hydrOXYzine hydrochloride 25 mg oral tablet 1 tablet, By Mouth, 3 times a day, BUBBLE PACK, # 84 tablet, 5 Refills, Maintenance, 07/30/21 9:02:00 EST, [facility], 190, cm, 07/27/21 12:49:00 EST, [...] 0 Refills, Maintenance, 07/21/21 11:47:00 EST, [place], [facility], Partial fill upon patient [...] # 2 each, 0 Refills, Soft Stop, 04/21/22 18:09:00 EDT, [facility], [...] COMMUNICATE SUGARS WITH PCP TO TITRATE LANTUS. [phone], 08/28... Start Date: 08/28/21 Status: Ordered One [...] By Mouth, 2 times a day, PRN, # 20 tablet, Refills 0, Tot. Refills 0, Maintenance,Pain , Severe, 10/08/21 12:29:00 EDT, Route to Pharmacy Electronically, [facility], Partial fill upon patient request if the prescription... Start Date: 10/08/21 Status: Ordered oxyCODONE 5 mg oral tablet 5 mg, 1, tablet, By Mouth, 2 times a day, PRN, # 20 tablet, Refills 0, Tot. Refills 0, Acute 10/15/21 5:55:00 EDT, Pain , Severe, 09/15/21 5:54:00 EDT, Route to Pharmacy Electronically, [facility], Partial fill upon patient request if the... Start Date: 09/15/21 Stop Date: 10/15/21 Status: Ordered pantoprazole 40 mg oral delayed [...] 5 Refills, 09/15/21 5:56:00 EDT, [facility], 191, cm, 08/28/21 11:32:00 EDT, Height, 168.5, kg, 08/18/21 22:23:00 EDT... Start Date: 09/15/21 Status: Ordered prazosin 5 mg oral capsule 5 mg, 1, capsule, By Mouth, Daily at bedtime, BUBBLE PACK, # 28 capsule, Refills 4, Tot. Refills 4,Maintenance, 04/02/21 8:22:00 EDT, Route to Pharmacy Electronically, [facility], 190, cm, 01/23/21 8:35:00 EDT, [...] 08/18/21 22:23:00 EDT, Dry Weight Start Date: 09/25/21 Status: Ordered Problem List Condition Effective Dates [...] Painful peripheral neuropath y - NOS(Confirmed) Active emt intermediate prescription benzo diazepine use(Confirmed) Active Limited mobility(Confirmed) Active Severe obesity(Confirmed) Active Non-insulin dependent type 2 diabetes mellitus(Confirmed) Active Social History Social History Type Response Smoking Status Never entered on: 05/15/18 Sex
--- OUTSIDE RECORDS SUMMARY | 2022-10-04 17:48 | XMS_ITS | Continuity of Care Document ---
Author Name Unknown Organization [facility] Address [address] [place] [address]- Care Team Providers Care Sodium Chlorite Operator Name Role Phone Matheus Yo MD Primary Care Physician Encounter [facility] Date(s): 10/30/19 - 11/29/19 [facility] Adult [address] [place] [address]- [facility] Attending Physician: Raji Shoemaker Admitting Physician: AdmRaji lara Referring Physician: Admtr, Mook8 Allergies, Adverse Reactions, Alerts Substance Reaction Severity [...] kyle tetanus/diphtheria/pertussis, acel(Tdap) 05/07/09 Given 1Result Comment: [id number] 2Result Comment: [id number] 3Result Comment: [05/15/2018] 82917-255-03 Medications atorvastatin 20 mg oral tablet 1 tablet = 20 mg, By Mouth, Daily, # 90 tablet, 3 Refills, Soft Stop, 03/14/19 13:58:57 EDT Start Date: 03/14/19 Status: Ordered clopidogrel 75 mg oral tablet 75 mg, 1, tablet, By Mouth, Daily, # 30 tablet, Refills 5, Tot. Refills 5, Maintenance, 10/25/19 8:57:00 EDT, Route to Pharmacy Electronically, [facility], 191, cm, 07/23/19 14:30:00EST, Height, [...] Dry Weight Start Date: 07/19/19 Status: Ordered duloxetine 30 mg oral enteric coated capsule 1 capsule = 30 mg, By Mouth, 2 times a day, # 60 capsule, 0 Refills, Maintenance, 12/28/18 15:05:21EDT, EC Capsule Start Date: 12/28/18 Status: Ordered Flonase 50 mcg/inh nasal spray 1 sprays, Nares, Both, 2 times a day, # 16 Gm, 0 Refills, Maintenance, 05/23/18 10:06:41 EST, [facility], 1 sprays Nares, Both 2 times a day Start Date: 05/23/18 Status: Ordered furosemide 40 mg oral tablet 40 mg, 1, tablet, By Mouth, Daily, # 30 tablet, Refills 3, Tot. Refills 3, Maintenance, 06/01/19 13:24:00 EST, Do Not Route Start Date: 06/01/19 Status: Ordered gabapentin 300 mg oral capsule 300 mg, 1, capsule, By Mouth, Daily, # 30 capsule, Refills 5, Tot. Refills 5, Maintenance, 07/18/2014:03:00 EST, Route to Pharmacy Electronically, [id number], 191, cm, 07/18/19 14:17:00 EST, Height, 193.5, kg, 05/21/19 5:38:00 EST, D... Start Date: 07/18/19 Status: Ordered gabapentin 300 mg oral capsule [...] 08/06/19 14:53:00 EST, Route to Pharmacy Electronically, [facility], 191, cm, 07/23/19 14:30:00 EST, Height, 193.5, kg, 05/21/19 5:38:00 EST, Dry... Start Date: 08/06/19 Status: Ordered lidocaine 5% topical film APPLY ONE PATCH TO THE KNEE AND APPLY ONE PATCH TO THE LOWER BACK DAILY UTD. Start Date: 06/01/18 Status: Ordered lisinopril 40 mg oral tablet 1 tablet = 40 mg, By Mouth, Daily in AM, # 30 tablet, 2 Refills, Soft Stop, 11/27/19 13:41:00 EDT, [facility], 191, cm, 07/23/19 14:30:00 EST, Height, 193.5, kg, 05/21/19 5:38:00 EST, Dry Weight Start Date: 11/27/19 Status: Ordered LORazepam 2 mg oral tablet 1 tablet = 2 mg, By Mouth, 3 times a day, PRN for anxiety, # 90 tablet, 2 Refills, Maintenance, 10/03/19 11:11:00 EDT, Tablet, [facility], 191, cm, 07/23/19 14:30:00 EST, Height, 193.5, kg, 05/21/19 5:38:00 EST, Dry Weight Start Date: 10/03/19 Status: Ordered magnesium oxide 400 mg (240 mg elemental magnesium) oral tablet 1 tablet = 400 mg, By Mouth, Daily, # 30 tablet, 2 Refills, Maintenance, 06/01/18 13:51:50 EST, Tablet, 1 tablet By Mouth Daily Start Date: 06/01/18 Status: Ordered metFORMIN 1000 mg oral tablet See Instructions, TAKE 1 TABLET BY MOUTH EVERY MORNING, # 90 tablet, 30 Refills, Soft Stop, 08/06/19 14:52:00 EST, [facility], 191, cm, 07/23/19 14:30:00 EST, Height, 193.5, kg, 05/21/19 5:38:00 EST, Dry Weight Start Date: 08/06/19 Status: Ordered Metoprolol Succinate ER 50 mg oral tablet, extended release 1 tablet = 50 mg, By Mouth, Daily, # 90 tablet, 3 Refills, Soft Stop, 08/06/19 14:50:00 EST, [facility], 191, cm, 07/23/19 14:30:00 EST, Height, 193.5, kg, 05/21/19 5:38:00 EST, Dry Weight Start Date: 08/06/19 Status: Ordered nystatin topical 266037 u/gm powder See Instructions, Topically 2 times a day, # 30 Gm, 3 Refills, Maintenance, 10/16/19 16:18:00 EDT, Powder, [facility], Topically 2 times a day, 191, cm, 07/23/19 14:30:00 EST, Height, 193.5, kg, 05/21/19 5:38:00 EST, Dry Weight Start Date: 10/16/19 Status: Ordered OXcarbazepine 600 mg oral tablet [...] Tablet Start Date: 03/14/19 Status: Ordered phenytoin 100 mg oral capsule, extended release See Instructions, 2 capsules (200mg) in AM 4 capsules (400mg) in PM, # 180 capsule, 3 Refills, Maintenance, 10/19/19 10:01:00 EDT, [facility], changed to 100mg due to being out of 200, 191, cm, 07/23/19 14:30:00 EST, Height, 193.5, kg, 1... Start Date: 10/19/19 Status: Ordered prazosin 5 mg oral capsule 5 mg, 1, capsule, By Mouth, Daily at bedtime, # 30 capsule, Refills 5, Tot. Refills 5, Maintenance,07/19/19 15:02:00 EST, Route to Pharmacy Electronically, [facility], 191, cm, 07/18/19 14:17:00 EST, Height, 193.5, kg, 05/21/19 5:38:00 E... Start Date: 07/19/19 Status: Ordered prazosin 5 mg oral capsule 5 mg, 1, capsule, By Mouth, Daily at bedtime Start Date: 06/01/18 Status: Ordered promethazine 25 mg oral tablet 1 tablet = 25 mg, By Mouth, 2 times a day, PRN as needed for nausea/vomiting, # 20 tablet, 0 Refills, Maintenance, 10/03/19 15:22:00 EDT, Tablet, [facility], 191, cm, 07/23/19 14:30:00 EST, Height, 193.5, kg, 05/21/19 5:38:00 EST, Dry Weight Start Date: 10/03/19 Status: Ordered QUEtiapine 25 mg oral tablet 50 mg, 2, tablet, By Mouth, Daily at bedtime, # 60 tablet, Refills 1, Tot. Refills 1, Maintenance, 10/16/19 16:26:00 EDT, Route to Pharmacy Electronically, [facility], 191, cm, 07/23/19 14:30:00 EST, Height, 193.5, kg, 05/21/19 5:38:00 ES... Start Date: 10/16/19 Status: Ordered QUEtiapine 50 mg oral tablet 1 tablet = 50 mg, By Mouth, Daily, # 30 tablet, 5 Refills, Maintenance, 07/18/19 15:00:00 EST, Tablet, [facility], 191, cm, 07/18/19 14:17:00 EST, Height, 193.5, kg, 05/21/19 5:38:00EST, Dry Weight Start Date: 07/18/19 Status: Ordered spironolactone 25 mg oral tablet 25 mg, 1, tablet, By Mouth, Daily, # 90 tablet, Refills 3, Tot. Refills 3, Maintenance, 12/28/18 15:03:05 EDT, Route to Pharmacy Electronically, [id number], [id number] Start Date: 12/28/18 Status: Ordered traZODone 50 mg oral tablet 1-2 tablets, By Mouth, Daily at bedtime, PRN, Insomnia Start Date: 06/01/18 Status: Ordered traZODone 50 mg oral tablet [...] Painful peripheral neuropath y - NOS(Confirmed) Active [facility] prescription benzo 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
--- OUTSIDE RECORDS SUMMARY | 2022-10-04 17:48 | XMS_ITS | Continuity of Care Document ---
Author Name Unknown Organization [facility] Aung lt Address [address] [place] [address]- Care Team Providers Care Dry Cell And Battery Assembler Name Role Phone Tal WILKINS, Brown Paz Primary Care Physician [phone] Encounter [facility] Date(s): 08/17/21 - 09/16/21 [facility] Adult [address] [place] [address]- Allergies, Adverse Reactions, Alerts Substance Reaction Severity [...] Reason: Med Not Available 2Result Comment: [05/15/2018] 88370-498-67 3Result Comment: [id number] 4Result Comment: [id number] Medications acetaminophen 325 mg oral tablet 650 [...] Gm, 11 Refills, Maintenance, 07/08/20 16:47:00 EST, [place], [facility], 1 sprays [...] Replace Required Details, Route to Pharmacy Electronically, [facility], 190, cm, 07/27/21 12:49... Start Date: 07/30/21 Status: Ordered hydrOXYzine hydrochloride 25 mg oral tablet 1 tablet, By Mouth, 3 times a day, BUBBLE PACK, # 84 tablet, 5 Refills, Maintenance, 07/30/21 9:02:00 EST, [facility], 190, cm, 07/27/21 12:49:00 EST, [...] # 90 Unknown, 3 Refills, [facility], 190, cm, 07/27/21 12:49:00 EST, Height, 153, kg, 01/14/21 23:22:00 EDT, Dry Weight Start Date: 08/11/21 Status: Ordered Lantus 100 u/ml subcutaneous solution = 20 units, Subcutaneous Injection, Daily at bedtime, # 10 mL, 0 Refills, Maintenance, 07/21/21 11:47:00 EST, Solution, [facility], Partial fill upon patient request if the prescriptionis for a schedule II opioid drug., 190, cm, ... Start Date: 07/21/21 Status: Ordered LORazepam 2 mg oral tablet 1 tablet = 2 mg, By Mouth, 3 times a day, PRN for anxiety, # 90 tablet, 2 Refills, Maintenance, 06/11/21 16:39:00 EST, Tablet, [facility], 190, cm, 04/03/21 10:25:00 EDT, [...] EDT, DryWeight Start Date: 08/28/21 Status: Ordered NURSING ORDERS NURSING ORDERS, See Instructions, # 1 each, Refills 0, Tot. Refills 0, Maintenance, LEFT ANKLE WOUND-CLEANSE NS, APPLY SILVADENE, DCD DAILY OR NURSING TO REC TX. DM II MONITORING AND COMMUNICATE SUGARS WITH PCP TO TITRATE LANTUS. [phone], 08/28... Start Date: 08/28/21 Status: Ordered One [...] EDT, Route to Pharmacy Electronically, [facility], Partial fill upon patient request if the... Start Date: 09/15/21 Stop Date: 10/15/21 Status: Ordered oxyCODONE 5 mg oral tablet 5 mg, 1, tablet, By Mouth, 2 times a day, PRN, # 20 tablet, Refills 0, Tot. Refills 0, Acute 10/08/21 14:22:00 EDT, Pain , Severe, 09/08/21 17:43:00 EDT, Route to Pharmacy Electronically, [facility], Partial fill upon patient request if t... Start Date: 09/08/21 Stop Date: 10/08/21 Status: Ordered pantoprazole 40 mg oral delayed [...] 168 capsule, 5 Refills, 09/15/21 5:56:00 EDT, [facility], 191, cm, 08/28/21 11:32:00 EDT, Height, 168.5, kg, 08/18/21 22:23:00 EDT... Start Date: 09/15/21 Status: Ordered prazosin 5 mg oral capsule 5 mg, 1, capsule, By Mouth, Daily at bedtime, BUBBLE PACK, # 28 capsule, Refills 4, Tot. Refills 4,Maintenance, 04/02/21 8:22:00 EDT, Route to Pharmacy Electronically, [facility], 190, cm, 01/23/21 8:35:00 EDT, Height, 153, kg, 01/14/21... Start Date: 04/02/21 Status: Ordered ProAir HFA 90 mcg/inh inhalation aerosol 2 puffs, Inhalation, Every 4 hours, PRN Wheezing/Shortness of Breath, # 1 each, 5 Refills, Maintenance, 06/27/20 16:56:00 EST, [facility], Partial fill upon patient request [...] EDT,Dry Weight Start Date: 02/23/21 Status: Ordered Santyl 250 u/gm ointment 1 application, Topically, Daily, left heel clean affected area before application, # 30 Gm, 0 Refills, Acute 10/08/21 8:00:00 EDT, 09/04/21 14:09:00 EDT, [place], [facility], Partial fill upon patient request if the prescription is for... Start Date: 09/04/21 Stop Date: 10/08/21 Status: Ordered torsemide 20 mg oral tablet [...] Painful peripheral neuropath y - NOS(Confirmed) Active senior living prescription benzo diazepine use(Confirmed) Active Limited mobility(Confirmed) Active Severe obesity(Confirmed) Active Non-insulin dependent type 2 diabetes mellitus(Confirmed) Active Social History Social History Type Response Smoking Status Never entered on: 05/15/18 Sex
--- OUTSIDE RECORDS SUMMARY | 2022-10-04 17:48 | XMS_ITS | Continuity of Care Document ---
Author Name Unknown Organization [facility] Aung lt Address [address] [place] [address]- Care Team Providers Care Security Monitor Name Role Phone Matheus Yo MD Primary Care Physician [facility] Date(s): 12/12/19 - 01/11/20 [facility] Adult [address] [place] [address]- [facility] Allergies, Adverse Reactions, Alerts Substance [...] kyle tetanus/diphtheria/pertussis, acel(Tdap) 05/07/09 Given 1Result Comment: [id number] 2Result Comment: [id number] 3Result Comment: [05/15/2018] 20322-628-83 Medications acetaminophen 325 mg oral tablet 650 [...] EDT, Route to Pharmacy Electronically, [facility], 191, cm, 07/23/19 14:30:00EST, Height, [...] EDT, Route to Pharmacy Electronically, [facility], 191, cm, 07/23/2013:30:00 EST, Height, 193.5, kg, 05/21/19 5:38:00 EST,... Start Date: 12/12/19 Status: Ordered Flonase 50 mcg/inh nasal spray 1 sprays, Nares, Both, 2 times a day, # 16 Gm, 0 Refills, Maintenance, 05/23/18 10:06:41 EST, [place], 1 sprays Nares, Both 2 times a [...] 08/06/19 14:53:00 EST, Route to Pharmacy Electronically, [facility], 191, cm, 07/23/19 14:30:00 EST, [...] Start Date: 08/06/19 Status: Ordered nystatin topical 036572 u/gm powder See Instructions, Topically 2 times [...] Refills, Maintenance, 10/19/19 10:01:00 EDT, [facility], changed to 100mg due to being out of 200, 191, cm, 07/23/19 14:30:00 EST, Height, 193.5, kg, 1... Start Date: 10/19/19 Status: Ordered prazosin 5 mg oral capsule 5 mg, 1, capsule, By Mouth, Daily at bedtime, # 30 capsule, Refills 5, Tot. Refills 5, Maintenance,07/19/19 15:02:00 EST, Route to Pharmacy Electronically, [facility], 191, cm, 07/18/19 14:17:00 EST, Height, 193.5, kg, 05/21/19 5:38:00 E... Start Date: 07/19/19 Status: Ordered QUEtiapine 50 mg oral tablet 1 tablet = 50 mg, By Mouth, Daily, # 30 tablet, 5 Refills, Maintenance, 12/12/19 10:07:00 EDT, Tablet, [facility], 191, cm, 07/23/19 14:30:00 EST, Height, 193.5, kg, 05/21/19 5:38:00EST, Dry Weight Start Date: 12/12/19 Status: Ordered spironolactone 25 mg oral tablet 25 mg, 1, tablet, By Mouth, Daily, # 90 tablet, Refills 3, Tot. Refills 3, Maintenance, 12/28/18 15:03:05 EDT, Route to Pharmacy Electronically, [id number], [id number] Start Date: 12/28/18 Status: Ordered traZODone 50 [...] peripheral neuropath y - NOS(Confirmed) Active terminal operator prescription benzo 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
--- OUTSIDE RECORDS SUMMARY | 2022-10-04 17:48 | XMS_ITS | Continuity of Care Document ---
Author Name Unknown Organization [facility] Aung Address [address] [place] [address]- Care Team Providers Care Chemical Compounder Helper Name Role Phone Sanaz WILKINS, Matheus Castro Primary Care Physician [facility]counter [facility] Date(s): 01/22/21 - 02/21/21 [facility] Adult [address] [place] [address]- Allergies, Adverse Reactions, Alerts Substance Reaction Severity [...] kyle tetanus/diphtheria/pertussis, acel(Tdap) 05/07/09 Given 1Result Comment: [id number] 2Result Comment: [id number] 3Result Comment: [05/15/2018] 75064-421-12 Medications acetaminophen 325 mg oral tablet 650 mg, By Mouth, Every 4 hours, PRN, Refills 0, Maintenance, Pain , Mild, 12/12/19 13:05:00 EDT Start Date: 12/12/19 Status: Ordered apixaban 5 mg oral tablet 1 tablet = 5 mg, By Mouth, 2 times a day, # 60 tablet, 3 Refills, Maintenance, 01/13/21 15:09:00 EDT, Tablet, [facility], Partial fill upon [...] Refills, Maintenance, 01/13/21 15:09:00 EDT, CR Capsule, [facility], Partial fill upon patient request if the prescription is for a schedule II opioid drug., 190, cm, 01/13/21 7:49:00... Start Date: 01/13/21 Stop Date: 03/14/21 Status: Ordered colchicine 0.6 mg oral tablet 0.6 mg, 1, tablet, By Mouth, 2 times a day, # 60 tablet, Refills 1, Tot. Refills 1, Maintenance, 01/13/21 15:09:00 EDT, Route to Pharmacy Electronically, [facility], Partial fill upon [...] 01/13/21 15:09:00 EDT, Route to Pharmacy Electronically, [facility], Partial fill upon patient [...] 01/18/21 11:37:00 EDT, Route to Pharmacy Electronically, [facility], Partial fill upon patient request if the prescription is for a errol... Start Date: 01/18/21 Status: Ordered Flonase 50 mcg/inh nasal spray 1 sprays, Nares, Both, 2 times a day, # 16 Gm, 11 Refills, Maintenance, 07/08/20 16:47:00 EST, [place], [facility], 1 sprays [...] Refills 0, Tot. Refills 0, Maintenance, dx: asehdhY93. 40, oxygen dependence Z99.81, 01/27/21 11:50:00 EDT, [...] 01/18/21 11:37:00 EDT, Route to Pharmacy Electronically, [facility], Partial fill upon patient [...] 1 Refills, Soft Stop, 01/13/21 15:30:00 EDT, [facility], 190, cm, 01/13/21 7:49:00 EDT, Height, [...] Refills, Maintenance, 01/23/21 11:11:00 EDT, [facility], 190, cm, 01/23/21 8:35:00 EDT, Height, 153, kg, 01/14/21 23:22:00 EDT, Dry Weight Start Date: 01/23/21 Status: Ordered torsemide 20 mg oral tablet 2 tablet = 40 mg, By Mouth, Daily, # 60 tablet, 1 Refills, Maintenance, 01/13/21 15:10:00 EDT, Tablet, [facility], Partial fill upon patient request if the prescription is for a schedule II opioid drug., 190, cm, 01/13/21 7:49:00 EDT, He... Start Date: 01/13/21 Stop Date: 03/14/21 Status: Ordered traZODone 50 mg oral tablet 100 mg, 2, tablet, By Mouth, Daily at bedtime, # 60 tablet, Refills 5, Tot. Refills 5, Maintenance,01/23/21 11:11:00 EDT, Route to Pharmacy Electronically, [facility], 190, cm, 01/23/21 8:35:00 EDT, Height, 153, kg, 01/14/21 23:22:00 EDT... 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
--- OUTSIDE RECORDS SUMMARY | 2022-10-04 17:48 | XMS_ITS | Continuity of Care Document ---
Author Name Unknown Organization [facility] Aung Address [address] [place] [address]- Care Team Providers Care Executive Sales Manager Name Role Phone Sanaz WILKINS, Matheus Castro Primary Care Physician Encounter [facility] Date(s): 07/18/19 - 07/25/19 [facility] Adult [address] [place] [address]- [facility] Encounter Diagnosis Cholecystitis(Discharge Diagnosis) - 07/25/19 Obstructive sleep apnea(Discharge Diagnosis) - 07/25/19 Attending Physician: Tal WILKINS, Brown Paz Allergies, Adverse Reactions, Alerts Substance Reaction Severity [...] kyle tetanus/diphtheria/pertussis, acel(Tdap) 05/07/09 Given 1Result Comment: [id number] 2Result Comment: [id number] 3Result Comment: [05/15/2018] 46648-058-13 Medications atorvastatin 20 mg oral tablet 1 tablet = 20 mg, By Mouth, Daily, # 90 tablet, 3 Refills, Soft Stop, 03/14/19 13:58:57 EDT Start Date: 03/14/19 Status: Ordered clopidogrel 75 mg oral tablet 75 mg, 1, tablet, By Mouth, Daily, # 30 tablet, Refills 5, Tot. Refills 5, Maintenance, 01/29/19 17:13:14 EDT, Route to Pharmacy Electronically, [id number], [facility] Start Date: [...] Gm, 0 Refills, Maintenance, 05/23/18 10:06:41 EST, [place], 1 sprays Nares, Both 2 times a [...] Maintenance, 07/18/2014:03:00 EST, Route to Pharmacy Electronically, [id number], 191, cm, 07/18/19 14:17:00 EST, Height, 193.5, [...] 12/28/18 15:10:14 EDT, Route to Pharmacy Electronically, [id number], [facility][id number] Start Date: 12/28/18 Status: Ordered lidocaine 5% topical film APPLY ONE PATCH TO THE KNEE AND APPLY ONE PATCH TO THE LOWER BACK DAILY UTD. Start Date: 06/01/18 Status: Ordered lisinopril 40 mg oral tablet See Instructions, # 30 tablet, Refills 5 Tot. Refills 5, TAKE 1 TABLET BY MOUTH EVERY MORNING, [id number] Start Date: 01/02/19 Status: Ordered LORazepam 2 mg oral tablet 1 tablet = 2 mg, By Mouth, 3 times a day, PRN for anxiety, # 90 tablet, 2 Refills, Maintenance, 07/18/19 15:00:00 EST, Tablet, [facility], 191, cm, 07/18/19 14:17:00 EST, Height, 193.5, kg, 05/21/19 5:38:00 EST, Dry Weight Start Date: 07/18/19 Status: Ordered magnesium oxide 400 mg (240 [...] nausea/vomiting, # 20 tablet, 0 Refills, Maintenance, 07/24/19 11:40:00 EST, Tablet, [facility], 191, cm, 07/23/19 14:30:00 EST, Height, 193.5, kg, 05/21/19 5:38:00 EST, Dry Weight Start Date: 07/24/19 Status: Ordered QUEtiapine 25 mg oral tablet 50 mg, 2, tablet, By Mouth, Daily at bedtime, # 30 tablet, Refills 0, Maintenance, 05/21/19 0:45:52EST Start Date: 05/21/19 Status: Ordered QUEtiapine 50 mg oral tablet 1 tablet = 50 mg, By Mouth, Daily, # 30 tablet, 5 Refills, Maintenance, 07/18/19 15:00:00 EST, Tablet, [facility], 191, cm, 07/18/19 14:17:00 EST, Height, 193.5, kg, 05/21/19 5:38:00EST, Dry Weight Start Date: 07/18/19 Status: Ordered spironolactone 25 mg oral tablet 25 mg, 1, tablet, By Mouth, Daily, # 90 tablet, Refills 3, Tot. 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 benzo diazepine use(Confirmed) Active Limited mobility(Confirmed) Active Diagnosis Diagnosis Type Effective Dates Health Status Clinical Service Informant Cholecystitis Discharge Diagnosis 07/25/19 Obstructive sleep apnea Discharge Diagnosis 07/25/19 Vital Signs Most recent to oldest [Reference Range]: 1 Height 191 cm (07/18/19 2:17 PM) Weight 171.6 kg (07/18/19 2:17 PM) Oxygen Saturation [94-100 %] 96 % (07/18/19 2:17 PM) Pulse Rate [55-90 bpm] 94 bpm *H* (07/18/19 2:17 PM) Body Mass Index [18.5-24.99] 47.04 *>HHI* (07/18/19 2:17 PM) Blood Pressure [90-138/55-84 mm Hg] 146/ 78mm Hg *H* (07/18/19 2:17 PM) Temperature [96.8-100.4 DegF] 98.4 DegF (07/18/19 2:17 PM) Mode of Delivery (Oxygen) Room air (07/18/19 2:17 PM) Blood pressure sites Arm, left (07/18/19 2:17 PM) Temperature Route Oral (07/18/19 2:17 PM) Weight Obtained Via Standing scale (07/18/19 2:17 PM) Social History Social History Type Response Smoking Status Never entered on: 05/15/18 Sex
--- OUTSIDE RECORDS SUMMARY | 2022-10-04 17:48 | XMS_ITS | Continuity of Care Document ---
Author Name Unknown Organization [facility] Aung Address [address] [place] [address]- Care Team Providers Care Press Officer Name Role Phone Tal WILKINS, rBown Paz Primary Care Physician [phone] Encounter [facility] Date(s): 04/08/22 - 05/08/22 [facility] Adult [address] [place] [address]- Referring Physician: Tara Lara Allergies, Adverse Reactions, Alerts Substance Reaction Severity Status clindamycin Hives Active penicillin rash Active Contrast Dye urticaria Active antivenin (black spider) Active Latex anaphylaxis Active Bee Stings Active Immunizations Given and [...] Reason: Med Not Available 2Result Comment: [05/15/2018] 20987-341-67 3Result Comment: [id number] 4Result Comment: [id number] Medications apixaban 5 mg oral tablet 1 [...] Gm, 11 Refills, Maintenance, 07/08/20 16:47:00 EST, [place], [facility], 1 sprays [...] EDT, Route to Pharmacy Electronically, [facility], 191, cm, 02/11/22 11:45:00 EDT, Height, 170, kg, 02/05/22 22:35:00 EDT, . Start Date: 04/02/22 Status: Ordered hydrOXYzine hydrochloride 25 mg oral tablet 1 tablet, By Mouth, 3 times a day, # 84 tablet, 5 Refills, [facility], 191, cm, 12/10/21 10:57:00 EDT, [...] 0 Refills, Maintenance, 07/21/21 11:47:00 EST, Solution, [facility], Partial fill upon patient [...] COMMUNICATE SUGARS WITH PCP TO TITRATE LANTUS. [phone], 08/28... 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 Active Limited mobility Confirmed Active Severe obesity Confirmed Active Non-insulin dependent type 2 diabetes mellitus Confirmed Active Social History Social History Type Response Smoking Status Never entered on: 05/15/18 Sex Patient Care team information Care Team Personnel Name: Gladis Carrizales RN Position: [facility] RN Member Role: Primary Care Nurse Name: Ebony Santoyo RN Position: [facility] RN Member Role: Primary Care Nurse Name: Siobhan Ko RN Position: [facility] RN Member Role: Primary Care Nurse Name: Evette Marrero Position: [facility] RN Supv Member Role: Primary Care Nurse Name: Aviva Howard RN Position: [facility] RN Member Role: Primary Care Nurse Name: Hilda Doyle RN Position: [facility] RN Member Role: Primary Care Nurse Name: Kimmy Ahumada NP Position: [facility] Associate Professional Member Role: Primary Care Nurse Address: Address: [address] [place] [address]- Name: Bruce Mccurdy MD Position: [facility] Renal Member Role: Lifetime Consulting Physician Address: Address: [address] [place] [address], [address] [facility] 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 Member Role: Primary Care Nurse Name: JO GONZALEZ RN Position: [facility] RN Member Role: Primary Care Nurse Name: Shelby Luna RN Position: [facility] RN Member Role: Primary Care Nurse Name: Sarina Camejo RN Position: [facility] RN Member Role: Primary Care Nurse Name: Lachelle Shine RN Position: [facility] RN Member Role: Primary Care Nurse Name: Leilani Lerma RN Position: [facility] Wound Member Role: Primary Care Nurse Name: Sandrita Portillo LPN Position: [facility] RN Member Role: Primary Care Nurse Name: Corina Munoz RN Position: [facility] RN Member Role: Primary Care Nurse Name: Vania Hernandez Position: [facility] RN Member Role: Primary Care Nurse Name: Mukul Dougherty RN Position: [facility] RN Member Role: Primary Care Nurse Name: Hammad Gambino RN Position: [facility] RN Member Role: Primary Care Nurse Name: Kenia Rao RN Position: [facility] RN Member Role: Primary Care Nurse Name: Michele Villavicencio RN Position: [facility] RN Member Role: Primary Care Nurse Name: Brown Parada MD Position: [facility] Primary Care Physician Member Role: PCP Address: Address: [address] [place] [address]- [place] Name: Charlette Lopez RN Position: [facility] RN Member Role: Primary Care Nurse Name: Elena Sheikh RN Position: [facility] RN Member Role: Primary Care Nurse Name: Theodora Serna RN Position: [facility] KRISTYO RN Member Role: Primary Care Nurse Name: Yang Silva RN Position: [facility] RN Member Role: Primary Care Nurse Name: Xiomara Mario RN Position: [facility] RN Member Role: Primary Care Nurse Name: Meg Norman RN Position: [facility] RN Member Role: Primary Care Nurse Name: Latanya Garza RN Position: [facility] RN Member Role: Primary Care Nurse Name: Jaimie Gibson RN Position: [facility] RN Member Role: Primary Care Nurse Name: Carmen Bruner RN Position: S RN Member Role: Primary Care Nurse Name: Kirill Mccartney RN Position: [facility] RN Member Role: Primary Care Nurse Name: Chacha Hassan RN Position: S RN Member Role: Primary Care Nurse Name: Earlene Grayson RN Position: [facility] SN RN Member Role: Primary Care Nurse Name: Cem Carroll MD Position: [facility] Renal MD Member Role: Lifetime Consulting Physician Address: Address: [address] [place] [address] [facility] [address] Name: Eusebia Hassan RN Position: [facility] RN Member Role: Primary Care Nurse Care Team Related Persons Name: JIMENEZ BRUNER Address: [address] [place] [address] Name: ANYA DE JESUS Address: [address] [place] [address]
--- OUTSIDE RECORDS SUMMARY | 2022-10-04 17:48 | XMS_ITS | Continuity of Care Document ---
Author Name Unknown Organization [facility] Aung lt Address [address] [place] [address]- Care Team Providers Care Technology Internship Name Role Phone Tal WILKINS, Brown Paz Primary Care Physician [phone] Encounter [facility] Date(s): 07/30/21 - 08/29/21 [facility] Adult [address] [place] [address]- Allergies, Adverse Reactions, Alerts Substance Reaction Severity Status clindamycin Hives Active penicillin rash Active antivenin (black spider) Active Latex anaphylaxis Active aspirin Active Bee Stings Active Contrast Dye urticaria Active Immunizations Given and Recorded Vaccine Date [...] Reason: Med Not Available 2Result Comment: [05/15/2018] 99317-193-99 3Result Comment: [id number] 4Result Comment: [id number] Medications acetaminophen 325 mg oral tablet 650 [...] Gm, 11 Refills, Maintenance, 07/08/20 16:47:00 EST, [place], [facility], 1 sprays [...] Details, Route to Pharmacy Electronically, [facility], 190, cm, 07/27/21 12:49... Start [...] 0 Refills, Maintenance, 07/21/21 11:47:00 EST, Solution, [facility], Partial fill upon patient [...] COMMUNICATE SUGARS WITH PCP TO TITRATE LANTUS. [phone], 08/28... Start Date: 08/28/21 Status: Ordered One [...] tablet, Refills 0, Tot. Refills 0, Acute 09/25/21 13:15:00 EDT, Pain , Severe, 08/28/21 13:07:00 EDT, Route to Pharmacy Electronically, [facility], Partial fill upon patient request if t... Start Date: 08/28/21 Stop Date: 09/25/21 Status: Ordered phenytoin 100 mg oral capsule, [...] EDT, Route to Pharmacy Electronically, [facility], 190, cm, 01/23/21 8:35:00 EDT, [...] Painful peripheral neuropath y - NOS(Confirmed) Active jail prescription benzo diazepine use(Confirmed) Active Limited mobility(Confirmed) Active Severe obesity(Confirmed) Active Non-insulin dependent type 2 diabetes mellitus(Confirmed) Active Social History Social History Type Response Smoking Status Never entered on: 05/15/18 Sex
--- OUTSIDE RECORDS SUMMARY | 2022-10-04 17:48 | XMS_ITS | Continuity of Care Document ---
Author Name Unknown Organization [facility] Eddie Aung Address [address] [place] [address]- Care Team Providers Care Retail Manager In Training Name Role Phone Matheus Yo MD Primary Care Physician Encounter [facility] Date(s): 02/21/20 - 03/27/20 [facility] Adult [address] [place] [address]- [facility] Attending Physician: Matheus Yo MD Allergies, [...] kyle tetanus/diphtheria/pertussis, acel(Tdap) 05/07/09 Given 1Result Comment: [id number] 2Result Comment: [id number] 3Result Comment: [05/15/2018] 37897-387-81 Medications acetaminophen 325 mg oral tablet 650 [...] EDT, Route to Pharmacy Electronically, [facility], 191, cm, 07/23/19 14:30:00EST, Height, 193.5, kg, 05/21/19 5:38:00 EST, Dry Weight Start Date: 10/25/19 Stop Date: 04/22/20 Status: Ordered cyanocobalamin 1000 mcg oral tablet, extended release 1 tablet = 1,000 mcg, By Mouth, Daily, # 30 tablet, 11 Refills, Maintenance, 02/21/20 10:38:00 EDT,[facility], 191, cm, 12/27/19 12:20:00 EDT, [...] EDT, Route to Pharmacy Electronically, [facility], 191, cm, 07/23/2013:30:00 EST, Height, 193.5, kg, 05/21/19 5:38:00 EST,... Start Date: 12/12/19 Status: Ordered Flonase 50 mcg/inh nasal spray 1 sprays, Nares, Both, 2 times a day, # 16 Gm, 0 Refills, Maintenance, 05/23/18 10:06:41 EST, [place], 1 sprays Nares, Both 2 times a [...] Start Date: 08/06/19 Status: Ordered nystatin topical 351157 u/gm powder See Instructions, Topically 2 times [...] Maintenance,07/19/19 15:02:00 EST, Route to Pharmacy Electronically, [facility], 191, cm, 07/18/19 14:17:00 EST, Height, 193.5, kg, 05/21/19 5:38:00 E... Start Date: 07/19/19 Status: Ordered QUEtiapine 50 mg oral tablet 1 tablet = 50 mg, By Mouth, Daily, # 30 tablet, 5 Refills, Maintenance, 12/12/19 10:07:00 EDT, Tablet, [facility], 191, cm, 07/23/19 14:30:00 EST, Height, 193.5, kg, 05/21/19 5:38:00EST, Dry Weight Start Date: 12/12/19 Status: Ordered spironolactone 25 mg oral tablet 25 mg, 1, tablet, By Mouth, Daily, # 30 tablet, Refills 5, Tot. Refills 5, Maintenance, 02/19/20 9:52:00 EDT, Route to Pharmacy Electronically, [facility], 191, cm, 12/27/19 12:20:00EDT, Height, 193.5, kg, 05/21/19 5:38:00 EST, Dry Weight Start Date: 02/19/20 Status: Ordered traZODone 50 mg oral tablet 100 mg, 2, tablet, By Mouth, Daily at bedtime, # 60 tablet, Refills 5, Tot. Refills 5, Maintenance,02/01/20 10:29:00 EDT, Route to Pharmacy Electronically, [facility], 191, cm, 12/27/19 12:20:00 EDT, Height, 193.5, kg, 05/21/19 5:38:00 E... 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
--- OUTSIDE RECORDS SUMMARY | 2022-10-04 17:48 | XMS_ITS | Continuity of Care Document ---
Author Name Unknown Organization [facility] Aung lt Address [address] [place] [address]- Care Team Providers Care Monkey Trainer Name Role Phone Matheus Yo MD Primary Care Physician Encounter [facility] [place] [place] Date(s): 04/03/21 - 04/10/21 [facility] Adult [address] [place] [address]- Encounter Diagnosis Acquired lymphedema of leg(Discharge Diagnosis) - 04/03/21 Leg wound, right(Discharge Diagnosis) - 04/03/21 Painful peripheral neuropathy - NOS(Discharge Diagnosis) - 04/03/21 Attending Physician: Matheus Yo MD Allergies, Adverse [...] kyle tetanus/diphtheria/pertussis, acel(Tdap) 05/07/09 Given 1Result Comment: [id number] 2Result Comment: [id number] 3Result Comment: [05/15/2018] 98908-085-96 Medications acetaminophen 325 mg oral tablet 650 mg, By Mouth, Every 4 hours, PRN, Refills 0, Maintenance, Pain , Mild, 12/12/19 13:05:00 EDT Start Date: 12/12/19 Status: Ordered apixaban 5 mg oral tablet 1 tablet = 5 mg, By Mouth, 2 times a day, # 60 tablet, 3 Refills, Maintenance, 01/13/21 15:09:00 EDT, Tablet, [facility], Partial fill upon patient [...] 01/13/21 15:09:00 EDT, Route to Pharmacy Electronically, [facility], Partial fill upon patient [...] 01/13/21 15:09:00 EDT, Route to Pharmacy Electronically, [facility], Partial fill upon patient request [...] 01/18/21 11:37:00 EDT, Route to Pharmacy Electronically, [facility], Partial fill upon patient request if the prescription is for a errol... Start Date: 01/18/21 Status: Ordered Flonase 50 mcg/inh nasal spray 1 sprays, Nares, Both, 2 times a day, # 16 Gm, 11 Refills, Maintenance, 07/08/20 16:47:00 EST, [place], [facility], 1 sprays [...] Refills 0, Tot. Refills 0, Maintenance, dx: [id number]. [id number], oxygen dependence Z99.81, 01/27/21 11:50:00 EDT, [...] 01/18/21 11:37:00 EDT, Route to Pharmacy Electronically, [facility], Partial fill upon patient [...] EDT, Height, 153, kg, 01/14/21 23:22:00 EDT, [place].. Start Date: 02/23/21 Status: Ordered prazosin 5 [...] Daily, # 60 tablet, 5 Refills, Maintenance, 03/27/21 12:31:00 EDT, Tablet, [facility], Partial fill upon patient request if the prescription is for a schedule II opioid drug., 190, cm, 01/23/21 8:35:00 EDT, Hei... 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 prescription benzo diazepine use(Confirmed) Active Limited mobility(Confirmed) Active Non-insulin dependent type 2 diabetes mellitus(Confirmed) Active Diagnosis Diagnosis Type Effective Dates Health Status Clinical Service Informant Acquired lymphedema of leg Discharge Diagnosis 04/03/21 Painful peripheral neuropathy - NOS Discharge Diagnosis 04/03/21 Leg wound, right Discharge Diagnosis 04/03/21 Vital Signs Most recent to oldest [Reference Range]: 1 Height 190 cm (04/03/21 10:25 AM) Weight 159.0 kg (04/03/21 10:25 AM) Body Mass Index [18.5-24.99] 44.04 *>HHI* (04/03/21 10:25 AM) Blood Pressure [90-138/55-84 mm Hg] 120/ 72mm Hg (04/03/21 10:25 AM) Weight Obtained Via Standing scale (04/03/21 10:25 AM) Social History Social History Type Response Smoking Status Never entered on: 05/15/18 Sex
--- OUTSIDE RECORDS SUMMARY | 2022-10-04 17:48 | XMS_ITS | Continuity of Care Document ---
Author Name Unknown Organization [facility] Eddie Aung Address [address] [place] [address]- Care Team Providers Care Real Estate Subagent Name Role Phone Sanaz WILKINS, Matheus Castro Primary Care Physician [phone] Encounter [facility] Date(s): 02/20/20 - 03/21/20 [facility] Adult [address] [place] [address]- [facility] Allergies, Adverse Reactions, Alerts Substance Reaction [...] kyle tetanus/diphtheria/pertussis, acel(Tdap) 05/07/09 Given 1Result Comment: [id number] 2Result Comment: [id number] 3Result Comment: [05/15/2018] 26108-206-01 Medications acetaminophen 325 mg oral tablet 650 [...] 10/25/19 8:57:00 EDT, Route to Pharmacy Electronically, [facility], 191, cm, 07/23/19 14:30:00EST, Height, 193.5, kg, 05/21/19 5:38:00 EST, Dry Weight Start Date: 10/25/19 Stop Date: 04/22/20 Status: Ordered cyanocobalamin 1000 mcg oral tablet, extended release 1 tablet = 1,000 mcg, By Mouth, Daily, # 30 tablet, 11 Refills, Maintenance, 02/21/20 10:38:00 EDT,[facility], 191, cm, 12/27/19 12:20:00 EDT, [...] EDT, Route to Pharmacy Electronically, [facility], 191, cm, 07/23/2013:30:00 EST, Height, 193.5, kg, 05/21/19 5:38:00 EST,... Start Date: 12/12/19 Status: Ordered Flonase 50 mcg/inh nasal spray 1 sprays, Nares, Both, 2 times a day, # 16 Gm, 0 Refills, Maintenance, 05/23/18 10:06:41 EST, [place], 1 sprays Nares, Both 2 times a day Start Date: 05/23/18 Status: Ordered gabapentin 300 mg oral capsule 300 mg, 1, capsule, By Mouth, Daily, APPOINTMENT 02/26/20, # 10 capsule, Refills 0, Tot. Refills 0, Maintenance, 02/22/20 13:44:00 EDT, Route to Pharmacy Electronically, [facility], 191, cm, 12/27/19 12:20:00 EDT, [...] EDT, Route to Pharmacy Electronically, [facility], 191, cm, 12/27/19 12:20:00 EDT, [...] Start Date: 08/06/19 Status: Ordered nystatin topical 017713 u/gm powder See Instructions, Topically 2 times [...] Maintenance,07/19/19 15:02:00 EST, Route to Pharmacy Electronically, [facility], 191, cm, 07/18/19 14:17:00 EST, Height, 193.5, kg, 05/21/19 5:38:00 E... Start Date: 07/19/19 Status: Ordered QUEtiapine 50 mg oral tablet 1 tablet = 50 mg, By Mouth, Daily, # 30 tablet, 5 Refills, Maintenance, 12/12/19 10:07:00 EDT, Tablet, [facility], 191, cm, 07/23/19 14:30:00 EST, Height, 193.5, kg, 05/21/19 5:38:00EST, Dry Weight Start Date: 12/12/19 Status: Ordered spironolactone 25 mg oral tablet 25 mg, 1, tablet, By Mouth, Daily, # 30 tablet, Refills 5, Tot. Refills 5, Maintenance, 02/19/20 9:52:00 EDT, Route to Pharmacy Electronically, [facility], 191, cm, 12/27/19 12:20:00EDT, Height, 193.5, kg, 05/21/19 5:38:00 EST, Dry Weight Start Date: 02/19/20 Status: Ordered traZODone 50 mg oral tablet 100 mg, 2, tablet, By Mouth, Daily at bedtime, # 60 tablet, Refills 5, Tot. Refills 5, Maintenance,02/01/20 10:29:00 EDT, Route to Pharmacy Electronically, [facility], 191, cm, 12/27/19 12:20:00 EDT, Height, 193.5, kg, 05/21/19 5:38:00 E... Start Date: 02/01/20 Status: Ordered Vitamin D3 2000 intl units oral tablet 1 tablet = 2,000 International_Units, By Mouth, Daily, # 90 tablet, 1 Refills, Maintenance, 02/20/20 14:34:00 EDT, [facility], 191, cm, 12/27/19 12:20:00 EDT, [...] Painful peripheral neuropath y - NOS(Confirmed) Active longterm prescription benzo 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
--- OUTSIDE RECORDS SUMMARY | 2022-10-04 17:48 | XMS_ITS | Continuity of Care Document ---
Author Name Unknown Organization [facility] ter Address [address] [place] [id number]- Care Team Providers Care Billing Adjudicator Name Role Phone Sanaz WILKINS, Matheus Castro Primary Care Physician Encounter [facility] [place] Date(s): 12/29/20 - 01/13/[address] [address]- Encounter Diagnosis Atrial fibrillation with RVR(Final) - 12/29/20 Atrial fibrillation with RVR(Final) - 12/29/20 Discharge Disposition: A-D/C Home Attending Physician: Kristal WILKINS, Ronald Admitting Physician: Reema Martin MD Referring Physician: Not on Staff, Referring [...] kyle tetanus/diphtheria/pertussis, acel(Tdap) 05/07/09 Given 1Result Comment: [id number] 2Result Comment: [id number] 3Result Comment: [05/15/2018] [id number] Medications acetaminophen 325 mg oral tablet 650 mg, By Mouth, Every 4 hours, PRN, Refills 0, Maintenance, Pain , Mild, 12/12/19 13:05:00 EDT Start Date: 12/12/19 Status: Ordered apixaban 5 mg oral tablet 1 tablet = 5 mg, By Mouth, 2 times a day, # 60 tablet, 3 Refills, Maintenance, 01/13/21 15:09:00 EDT, Tablet, [facility], Partial fill upon patient [...] Start Date: 04/28/20 Status: Ordered Cardizem CD 180 mg/24 hours oral capsule, extended release 360 mg, CD Capsule, By Mouth, 01/13/21 9:00:00 EDT Start Date: 01/13/21 Stop Date: 01/13/21 Status: Completed Cardizem CD 360 mg/24 hours oral capsule, extended release 1 capsule = 360 mg, By Mouth, Daily, # 30 capsule, 1 Refills, Maintenance, 01/13/21 15:09:00 EDT, CR Capsule, [facility], Partial fill upon patient request if the prescription is for a schedule II opioid drug., 190, cm, 01/13/21 7:49:00... Start Date: 01/13/21 Stop Date: 03/14/21 Status: Ordered colchicine 0.6 mg oral tablet 0.6 mg, 1, tablet, By Mouth, 2 times a day, # 60 tablet, Refills 1, Tot. Refills 1, Maintenance, 01/13/21 15:09:00 EDT, Route to Pharmacy Electronically, [facility], Partial fill upon patient [...] 01/13/21 15:09:00 EDT, Route to Pharmacy Electronically, [facility], Partial fill upon patient [...] EST,Dry Weight Start Date: 10/03/20 Status: Ordered famotidine 20 mg oral tablet 20 mg, 1, tablet, By Mouth, 2 times a day, # 60 tablet, Refills 2, Tot. Refills 2, Maintenance, 12/12/19 13:24:00 EDT, Route to Pharmacy Electronically, [facility], 191, cm, 07/23/2013:30:00 EST, Height, 193.5, kg, 05/21/19 5:38:00 EST,... Start Date: 12/12/19 Status: Ordered Flonase 50 mcg/inh nasal spray 1 sprays, Nares, Both, 2 times a day, # 16 Gm, 11 Refills, Maintenance, 07/08/20 16:47:00 EST, [place], [facility], 1 sprays Nares, Both 2 times a day, 191, cm, 06/24/20 13:40:00 EST, Height, 193.5, kg, 05/21/19 5:38:00 EST, Dry Weight Start Date: 07/08/20 Status: Ordered gabapentin 300 mg oral capsule 300 mg, 1, capsule, By Mouth, 4 times a day, # 120 capsule, Refills 11, Tot. Refills 11, Maintenance, 07/24/20 17:44:00 EST, Route to Pharmacy Electronically, [facility], 191, cm, 06/24/20 13:40:00 EST, Height, 193.5, kg, 05/21/19 5:38:00... Start Date: 07/24/20 Stop Date: 07/19/21 Status: Ordered hydrOXYzine hydrochloride 25 mg oral tablet 1 tablet = 25 mg, By Mouth, 3 times a day, # 90 tablet, 11 Refills, Maintenance, 04/09/20 16:46:00 EST, Tablet, [facility], 191, cm, 12/27/19 12:20:00 EDT, Height, 193.5, kg, 05/21/19 5:38:00 EST, Dry Weight Start Date: 04/09/20 Status: Ordered isosorbide mononitrate 60 mg oral tablet, extended release 60 mg, 1, tablet, By Mouth, Daily in AM, # 90 tablet, Refills 1, Tot. Refills 1, Soft Stop, 09/10/20 10:12:00 EDT, Route to Pharmacy Electronically, [facility], 191, cm, 06/24/20 13:40:00 EST, Height, 193.5, kg, 05/21/19 5:38:00 EST, Dry... Start Date: 09/10/20 Status: Ordered loperamide 2 mg oral tablet [...] anxiety, # 90 tablet, 2 Refills, Maintenance, 01/13/21 17:05:00 EDT, Tablet, [facility], 190, cm, 01/13/21 7:49:00 EDT, Height, 170.4, kg, 12/31/20 8:52:00 EDT, Dry Weight Start Date: 01/13/21 Status: Ordered metFORMIN 1000 mg oral tablet [...] 1 Refills, Soft Stop, 01/13/21 15:30:00 EDT, [facility], 190, cm, 01/13/21 7:49:00 EDT, Height, 170.4, kg, 12/31/20 8:52:00 EDT, Dry Weight Start Date: 01/13/21 Stop Date: 03/14/21 Status: Ordered MorPHINE Inj 2 mg, Injection, IV Push Slowly, Every 4 hours, PRN for Pain , Severe, Routine, 01/11/21 8:14:00 EDT Start Date: 01/11/21 Stop Date: 01/18/21 Status: Ordered nystatin topical 796101 u/gm powder See Instructions, Topically 2 times a day, # 60 Gm, 5 Refills, Maintenance, 02/19/20 15:59:00 EDT, Powder, [facility], Topically 2 times a day, 191, cm, 12/27/19 12:20:00 EDT, Height, 193.5, kg, 05/21/19 5:38:00 EST, Dry Weight Start Date: 02/19/20 Status: Ordered oxyCODONE 5 mg oral tablet 5 mg, 1, tablet, By Mouth, Every 6 hours, PRN, for 3 days, # 12 tablet, Refills 0, Tot. Refills 0, Acute 01/16/21 15:27:00 EDT, as needed for pain, 01/13/21 15:27:00 EDT, Route to Pharmacy Electronically, [facility], Partial fill upon pa... Start Date: 01/13/21 Stop Date: 01/16/21 Status: Ordered phenytoin 100 mg oral capsule, [...] Daily, # 30 Unknown, 5 Refills, Maintenance, 01/13/21 17:05:00 EDT, [facility], 190, cm, 01/13/21 7:49:00 EDT, Height, 170.4, kg, 12/31/20 8:52:00 EDT, Dry Weight Start Date: 01/13/21 Status: Ordered spironolactone 25 mg oral tablet See Instructions, TAKE ONE TABLET BY MOUTH EVERY DAY, # 30 tablet, Refills 2, Maintenance, Instructions Replace Required Details, Route to Pharmacy Electronically, [facility], 191, cm, 06/24/20 13:40:00 EST, Height, 193.5, kg, 05/21/19 5:... Start Date: 12/06/20 Status: Ordered Toprol XL 50 mg oral tablet, extended release 150 mg, XL Tablet, By Mouth, Hold for: SBP<100 OR HR<55, 01/13/21 9:00:00 EDT Start Date: 01/13/21 Stop Date: 01/13/21 Status: Completed torsemide 20 mg oral tablet 2 tablet = 40 mg, By Mouth, Daily, # 60 tablet, 1 Refills, Maintenance, 01/13/21 15:10:00 EDT, Tablet, [facility], Partial fill upon patient request if the prescription is for a schedule II opioid drug., 190, cm, 01/13/21 7:49:00 EDT, He... Start Date: 01/13/21 Stop Date: 03/14/21 Status: Ordered traZODone 50 mg oral tablet 100 mg, 2, tablet, By Mouth, Daily at bedtime, # 60 tablet, Refills 5, Tot. Refills 5, Maintenance,01/13/21 17:05:00 EDT, Route to Pharmacy Electronically, [facility], 190, cm, 01/13/21 7:49:00 EDT, Height, 170.4, kg, 12/31/20 8:52:00 ED... Start Date: 01/13/21 Status: Ordered Vitamin D3 2000 intl units oral tablet 1 tablet, By Mouth, Daily, # 90 Unknown, 3 Refills, Maintenance, 11/10/20 16:52:00 EDT, [facility], 191, cm, 06/24/20 13:40:00 EST, [...] benzo diazepine use(Confirmed) Active Limited mobility(Confirmed) Active Results Orders for Microbiology Reports Name Date Anaerobic Culture (ANAEROBIC CULTURE) Sterile Body Fluid Culture W/ Gram Smear 01/02/21 Urine Culture (Culture Urine) 12/31/20 Microbiology Reports TEST:Anaerobic Culture STATUS:Auth (Verified) BODY SITE: SOURCE:[place] COLLECTED DATE/TIME:01/02/21 10:20 PM Anaerobic Culture SPECIMEN DESCRIPTION : PERICARDIAL FLUID NEW CHAD EFFUSION SPECIAL REQUESTS : NONE CULTURE : NO ANAEROBES ISOLATED REPORT STATUS : FINAL 01/07/2021 TEST:Sterile Fluid Culture STATUS:Auth (Verified) BODY SITE: SOURCE:[place] COLLECTED DATE/TIME:01/02/21 10:20 PM Sterile Fluid Culture SPECIMEN DESCRIPTION : PERICARDIAL FLUID NEW CHAD EFFUSION SPECIAL REQUESTS : NONE GRAM STAIN : 2+ WHITE BLOOD CELLS 2+ RBC'S NO ORGANISMS SEEN CULTURE : NO GROWTH 2 DAYS REPORT STATUS : FINAL 01/05/2021 TEST:Urine Culture STATUS:Auth (Verified) BODY SITE: SOURCE:URINE COLLECTED DATE/TIME:12/31/20 9:10 AM Urine Culture SPECIMEN DESCRIPTION : URINE CLEAN CATCH/MIDSTREAM SPECIAL REQUESTS : NONE CULTURE : <10,000 COL/ML REPORT STATUS : FINAL 01/01/2021 Radiology Reports * Exam Date Time Procedure Performing Provider Status 01/02/21 1:37 PM Chest Portable Letty Roman; Auth (Verified) Notes: (Chest Portable) Reason For Exam: Shortness of Breath RESULT: Chest Portable Chest Portable AP upright at 1:21 PM REASON: Shortness of Breath; Clinical Question(s): Pulmonary Edema / Pulmonary Edema COMPARISON: 12/30/2020, CT from 12/31/2020. FINDINGS: LINES AND TUBES: None. LUNGS AND PLEURA: Mild basilar atelectasis. Small bilateral pleural effusions. No pneumothorax. HEART, MEDIASTINUM AND NNAMDI: Unchanged. BONES AND SOFT TISSUES: No acute abnormality. IMPRESSION: Small bilateral pleural effusions with bibasilar atelectasis. WSN: [id number] Ordering Physician: Roman Leavitt Dictated By: Emanuel Bennett MD Dictated Date/Time: 01/02/21 4:11 pm Reviewed By: Emanuel Bennett MD Signed By: Emanuel Bennett MD Signed Date/Time: 01/02/21 4:11 pm Transcribed By: LEATHA Transcribed Date/Time: 01/02/21 4:10 pm * Exam Date Time Procedure Performing Provider Status 01/01/21 6:38 PM Knee 1 or 2 Views Right Sun, Diogenes; Auth (Verified) Notes: (Knee 1 or 2 Views Right) Reason For Exam: Tenderness;Pain RESULT: Knee 1 or 2 Views Right Knee 1 or 2 Views Right, 2 views Reason: Pain; Tenderness; Clinical Question(s): Bursitis COMPARISON: 05/07/2009. FINDINGS: There is diffuse osteopenia. An incompletely visualized intramedullary ena in the visualized tibia is noted. There is no acute fracture. There is moderate narrowing of the medial tibiofemoral compartment. There is chondrocalcinosis of the medial and lateral tibiofemoral compartments. There is severe narrowing of the patellofemoral joint with spurring superiorly. The alignment is maintained. There is no effusion Marked soft tissue edema surrounding the knee is noted. There is focal soft tissue thickening of the prepatellar region. IMPRESSION: No acute fracture. Prepatellar soft tissue thickening. Progressed tricompartmental osteoarthritis of the right knee, most severe at the patellofemoral joint. Progressed osteopenia. WSN: [id number] Ordering Physician: Ray Mccullough Dictated By: Amy Torres MD Dictated Date/Time: 01/01/21 6:48 pm Reviewed By: Amy Torres MD Signed By: Amy Torres MD Signed Date/Time: 01/01/21 6:48 pm Transcribed By: LEATHA Transcribed Date/Time: 01/01/21 6:45 pm * Exam Date Time Procedure Performing Provider Status 12/30/20 11:02 AM Chest Portable Tamiko Jenkins ( Verified) Notes: (Chest Portable) Reason For Exam: Shortness of Breath RESULT: Chest Portable Chest Portable Reason: Shortness of Breath; Clinical Question(s): Pneumonia; Special Instructions: luna COMPARISON: 12/29/2020 FINDINGS: No acute cardiopulmonary process IMPRESSION: No acute abnormality. WSN: [id number] Ordering Physician: Anna Solis Dictated By: Claude Hawley MD Dictated Date/Time: 12/30/20 11:36 a Reviewed By: Claude Hawley MD Signed By: Claude Hawley MD Signed Date/Time: 12/30/20 11:36 am Transcribed By: LEATHA Transcribed Date/Time: 12/30/20 11:35 am * Exam Date Time Procedure Performing Provider Status 12/29/20 5:52 AM Chest Portable Brenden Cohen (V erified) Notes: (Chest Portable) Reason For Exam: Shortness of Breath RESULT: Chest Portable Chest Portable HX OF PRESENT ILLNESS: CP, SOB; Reason: Shortness of Breath; Clinical Question(s): CHF / CHF COMPARISON: 05/20/2019 FINDINGS: LINES AND TUBES: None. LUNGS AND PLEURA: Clear lungs. Normal pulmonary vascularity. No pleural effusion. No pneumothorax. HEART, MEDIASTINUM AND NNAMDI: Heart appears enlarged but this is likely exaggerated by technique. Normal mediastinal and hilar contour. BONES AND SOFT TISSUES: No acute abnormality. IMPRESSION: No evidence of acute abnormality. WSN: [id number] Ordering Physician: Jose Luis Kurtz Dictated By: Emanuel Bennett MD Dictated Date/Time: 12/29/20 7:18 am Reviewed By: Emanuel Bennett MD Signed By: Emanuel Bennett MD Signed Date/Time: 12/29/20 7:18 am Transcribed By: LEATHA Transcribed Date/Time: 12/29/20 7:17 am Vital Signs Most recent to oldest [Reference Range]: 1 2 3 Height 190 cm (01/13/21 7:49 AM) 190 cm (01/13/21 3:11 AM) 190 cm (01/12/21 8:24 PM) Weight 155.9 kg (01/13/21 3:11 AM) 155.3 kg (01/12/21 3:13 AM) 156.6 kg (01/11/21 2:24 AM) Oxygen Saturation [94-100 %] 95 % (01/13/21 1:00 PM) 94 % (01/13/21 7:49 AM) 91 % *L* (01/13/21 3:11 AM) Pulse Rate [55-90 bpm] 70 bpm (01/13/21 1:00 PM) 82 bpm (01/13/21 9:57 AM) 82 bpm (01/13/21 9:57 AM) Body Mass Index [18.5-24.99] 43.19 *>HHI* (01/13/21 3:11 AM) 43.02 *>HHI* (01/12/21 3:13 AM) 43.38 *>HHI* (01/11/21 2:24 AM) Blood Pressure [90-138/55-84 mm Hg] 147/79mm Hg *H* (01/13/21 1:00 PM) 128/68mm Hg (01/13/21 9:57 AM) 128/68mm Hg (01/13/21 9:57 AM) Respiratory Rate [16-30 br/min] 20 br/min (01/13/21 2:27 PM) 18 br/min (01/13/21 1:00 PM) 20 br/min (01/13/21 10:12 AM) Temperature [96.8-100.4 DegF] 98.3 DegF (01/13/21 1:00 PM) 98.1 DegF (01/13/21 7:49 AM) 98.5 DegF (01/13/21 3:11 AM) Liters per Minute 2 L/min (01/13/21 1:00 PM) 2 L/min (01/13/21 7:49 AM) 2 L/min (01/12/21 8:24 PM) Mode of Delivery (Oxygen) Nasal cannula (01/13/21 1:00 PM) Nasal cannula (01/13/21 7:49 AM) Room air (01/13/21 3:11 AM) Blood pressure sites Arm, right (01/13/21 1:00 PM) Arm, right (01/13/21 7:49 AM) Arm, right (01/13/21 3:11 AM) Temperature Route Oral (01/13/21 1:00 PM) Oral (01/13/21 7:49 AM) Oral (01/13/21 3:11 AM) Dry Weight 170.4 kg (12/31/20 8:52 AM) 170.4 kg (12/31/20 12:45 AM) 193.5 kg (12/29/20 5:06 PM) Weight Obtained Via Bed scale (01/13/21 3:11 AM) Bed scale (01/12/21 3:13 AM) Bed scale (01/11/21 2:24 AM) Social History Social History Type Response Smoking Status Never entered on: 05/15/18 Sex
--- OUTSIDE RECORDS SUMMARY | 2022-10-04 17:49 | XMS_ITS | Continuity of Care Document ---
Author Name Unknown Organization [facility] ter Address [address] [place] [id number]- Care Team Providers Care Veneer Clipper Name Role Phone Sanaz WILKINS, Matheus Castro Primary Care Physician Encounter [facility] [place] Date(s): 05/20/19 - 06/01/[address] [address]- [facility] Discharge Disposition: A-Transfer SNF Attending Physician: David Maldonado MD Admitting Physician: Chris Thomas MD Referring Physician: Not on Staff, Referring MD Allergies, Adverse Reactions, Alerts Substance Reaction Severity Status clindamycin Hives Active penicillin rash Active aspirin Active Bee Stings Active Contrast Dye urticaria Active Latex anaphylaxis Active antivenin (black spider) Active Immunizations Given and Recorded Vaccine Date Status Refusal Reason influenza virus vaccine, inactivated 1 05/15/18 Gi kyle tetanus/diphtheria/pertussis, acel(Tdap) 05/07/09 Given 1Result Comment: [05/15/2018] 91783-597-03 Medications amLODIPine 5 mg oral tablet 5 mg, 1, tablet, By Mouth, Daily, # 30 tablet, Refills 2, Tot. Refills 2, Maintenance, 06/01/19 13:30:00 EST, Print Requisition Start Date: 06/01/19 Status: Ordered atorvastatin 20 mg oral tablet 1 tablet = 20 mg, By Mouth, Daily, # 90 tablet, 3 Refills, Soft Stop, 03/14/19 13:58:57 EDT Start Date: 03/14/19 Status: Ordered cefuroxime 500 mg oral tablet 1 tablet = 500 mg, By Mouth, 2 times a day, for 2 days, # 4 tablet, 0 Refills, Acute 06/03/19 13:31:00 EST, 06/01/19 13:31:00 EST, Tablet Start Date: 06/01/19 Stop Date: 06/03/19 Status: Ordered clopidogrel 75 mg oral tablet 75 mg, 1, tablet, By Mouth, Daily, # 30 tablet, Refills 5, Tot. Refills 5, Maintenance, 01/29/19 17:13:14 EDT, Route to Pharmacy Electronically, [id number], [facility] Start Date: [...] Gm, 0 Refills, Maintenance, 05/23/18 10:06:41 EST, [place], 1 sprays Nares, Both 2 times a day Start Date: 05/23/18 Status: Ordered Florastor 250 mg oral capsule 1 capsule = 250 mg, By Mouth, 2 times a day, for 5 days, # 10 capsule, 0 Refills, Acute 06/06/19 13:30:00 EST, 06/01/19 13:30:00 EST, Capsule Start Date: 06/01/19 Stop Date: 06/06/19 Status: Ordered furosemide 40 mg oral tablet [...] 12/28/18 15:10:14 EDT, Route to Pharmacy Electronically, [id number], [id number] Start Date: 12/28/18 Status: Ordered lidocaine 5% topical film APPLY ONE PATCH TO THE KNEE AND APPLY ONE PATCH TO THE LOWER BACK DAILY UTD. Start Date: 06/01/18 Status: Ordered lisinopril 40 mg oral tablet See Instructions, # 30 tablet, Refills 5 Tot. Refills 5, TAKE 1 TABLET BY MOUTH EVERY MORNING, [id number] Start Date: 01/02/19 Status: Ordered LORazepam 2 [...] 15:04:25 EDT Start Date: 12/28/18 Status: Ordered metroNIDAZOLE 500 mg oral tablet 1 tablet = 500 mg, By Mouth, Every 8 hours, for 2 days, # 6 tablet, 0 Refills, Acute 06/03/19 13:30:00 EST, 06/01/19 13:30:00 EST, Tablet Start Date: 06/01/19 Stop Date: 06/03/19 Status: Ordered OXcarbazepine 600 mg oral tablet 1 tablet = 600 mg, By Mouth, 3 times a day Start Date: 06/01/18 Status: Ordered oxyCODONE 5 mg oral tablet 5 mg, 1, tablet, By Mouth, Every 6 hours, PRN, for 3 days, # 10 tablet, Refills 0, Tot. Refills 0, Acute 06/04/19 13:30:00 EST, Pain , Moderate, 06/01/19 13:30:00 EST, Print Requisition, Partial fillupon patient request Start Date: 06/01/19 Stop Date: 06/04/19 Status: Ordered pantoprazole 40 mg oral delayed [...] 12/28/18 15:03:05 EDT, Route to Pharmacy Electronically, [id number], [id number] Start Date: 12/28/18 Status: Ordered traZODone 50 [...] Painful peripheral neuropath y - NOS(Confirmed) Active retirement prescription benzo diazepine use(Confirmed) Active Limited mobility(Confirmed) Active Results Orders for Microbiology Reports Name Date Anaerobic Culture 05/21/19 Sterile Body Fluid Culture W/ Gram Smear 05/21/19 Blood Culture 05/20/19 Blood Culture #2 05/20/19 Microbiology Reports TEST:Anaerobic Culture STATUS:Auth (Verified) BODY SITE: SOURCE:BODY F COLLECTED DATE/TIME:05/21/19 3:31 PM Anaerobic Culture SPECIMEN DESCRIPTION : BODY FLUID ABDOMEN SPECIAL REQUESTS : NONE CULTURE : NO ANAEROBES ISOLATED REPORT STATUS : FINAL 05/26/2019 TEST:Sterile Fluid Culture STATUS:Auth (Verified) BODY SITE: SOURCE:ABDOMI COLLECTED DATE/TIME:05/21/19 3:31 PM Sterile Fluid Culture SPECIMEN DESCRIPTION : ABDOMINAL FLUID SPECIAL REQUESTS : NONE GRAM STAIN : 2+ POLYMORPHONUCLEAR LEUKOCYTES NO ORGANISMS SEEN CULTURE : 1+ STREPTOCOCCI, GR.B BETA HEMOLYTIC ISOLATED CRITICAL VALUE CALLED AND VERIFIED BY READBACK FOR: GROUP B BETA STREPTOCOCCUSBORIS [id number],D6, TECH 357,05/23/19 @1329. . GROUP B STREPTOCOCCI REMAIN UNIVERSALLY SUSCEPTIBLE TO PENICILLIN AT THIS TIME. REPORT STATUS : FINAL 05/25/2019 ORGANISM 1+ STREPTOCOCCI, GR.B BETA HEMOLYTIC ISOLATED METHOD MIN. INHIB. CONC. (MCG/ML) CLINDAMYCIN SUSCEPTIBLE ERYTHROMYCIN SUSCEPTIBLE PENICILLIN SUSCEPTIBLE TEST:Blood Culture, Second Order STATUS:Auth (Verified) BODY SITE: SOURCE:Blood COLLECTED DATE/TIME:05/20/19 8:51 PM Blood Culture, Second Order SPECIMEN DESCRIPTION : BLOOD L HAND SPECIAL REQUESTS : NONE CULTURE : NO GROWTH 5 DAYS. REPORT STATUS : FINAL 05/25/2019 TEST:Blood Culture STATUS:Auth (Verified) BODY SITE: SOURCE:Blood COLLECTED DATE/TIME:05/20/19 6:53 PM Blood Culture SPECIMEN DESCRIPTION : BLOOD RAC SPECIAL REQUESTS : NONE CULTURE : NO GROWTH 5 DAYS. REPORT STATUS : FINAL 05/25/2019 Radiology Reports * Exam Date Time Procedure Performing Provider Status 05/20/19 6:54 PM Chest Portable Néstor Whitney (Verified) Notes: (Chest Portable) Reason For Exam: Shortness of Breath RESULT: Chest Portable Chest Portable Reason: Shortness of Breath; Clinical Question(s): CHF; Other Objective Findings: Alert, COMPARISON: 12/03/2010. FINDINGS: LINES AND TUBES: None. LUNGS AND PLEURA: Study is underpenetrated due to body habitus. No focal opacity or volume loss. No pleural effusion. No pneumothorax. HEART, MEDIASTINUM AND NNAMDI: Mild prominence of the cardiac silhouette. Normal mediastinal and hilar contour. BONES AND SOFT TISSUES: No acute abnormality. IMPRESSION: No acute abnormality. WSN: [id number] Dictated By: Emanuel Sahu MD Dictated Date/Time: 05/20/19 7:07 pm Reviewed By: Emanuel Sahu MD Signed By: Emanuel Sahu MD Signed Date/Time: 05/20/19 7:07 pm Transcribed By: LEATHA Transcribed Date/Time: 05/20/19 7:07 pm Vital Signs Most recent to oldest [Reference Range]: 1 2 3 Height 191 cm (06/01/19 7:00 AM) 191 cm (05/31/19 7:00 PM) 191 cm (05/31/19 10:00 AM) Weight 193.5 kg (05/21/19 5:33 AM) Oxygen Saturation [94-100 %] 98 % (06/01/19 7:00 AM) 97 % (05/31/19 7:00 PM) 93 % *L* (05/31/19 10:00 AM) Pulse Rate [55-90 bpm] 63 bpm (06/01/19 8:34 AM) 60 bpm (06/01/19 7:00 AM) 70 bpm (05/31/19 7:00 PM) Body Mass Index [18.5-24.99] 53.04 *>HHI* (05/21/19 5:33 AM) Blood Pressure [90-138/55-84 mm Hg] 153/70mm Hg *H* (06/01/19 8:34 AM) 153/70mm Hg *H* (06/01/19 8:34 AM) 153/70mm Hg *H* (06/01/19 8:34 AM) Respiratory Rate [16-30 br/min] 18 br/min (06/01/19 7:00 AM) 18 br/min (05/31/19 8:48 PM) 16 br/min (05/31/19 7:00 PM) Temperature [96.8-100.4 DegF] 97.9 DegF (06/01/19 7:00 AM) 98.3 DegF (05/31/19 7:00 PM) 98.6 DegF (05/31/19 10:00 AM) Liters per Minute 2 L/min (05/25/19 8:00 AM) 2 L/min (05/24/19 8:00 PM) 2 L/min (05/23/19 8:00 PM) Mode of Delivery (Oxygen) Room air (06/01/19 7:00 AM) Room air (05/31/19 7:00 PM) Room air (05/31/19 10:00 AM) Blood pressure sites Arm, left (06/01/19 7:00 AM) Arm, right (05/31/19 7:00 PM) Arm, left (05/31/19 10:00 AM) Temperature Route Oral (06/01/19 7:00 AM) Oral (05/31/19 7:00 PM) Oral (05/31/19 10:00 AM) Dry Weight 193.5 kg (05/21/19 5:33 AM) Weight Obtained Via Bed scale (05/21/19 5:33 AM) Dry Weight Obtained Via Bed scale (05/21/19 5:33 AM) Sensory deficits None (05/21/19 5:33 AM) Mobility assistance Total assistance (05/21/19 5:33 AM) Social History Social History Type Response Smoking Status Never entered on: 05/15/18 Sex
--- OUTSIDE RECORDS SUMMARY | 2022-10-04 17:49 | XMS_ITS | Continuity of Care Document ---
Author Name Unknown Organization [facility] Aung Address [address] [place] [address]- Care Team Providers Care Motorcycle Subassembler Name Role Phone Tal WILKINS, Brown Paz Primary Care Physician Encounter [facility] Date(s): 07/30/22 - 08/29/22 [facility] Adult [address] [place] [address]- Allergies, Adverse Reactions, Alerts Substance Reaction Severity [...] Reason: Med Not Available 2Result Comment: [05/15/2018] 45087-831-49 3Result Comment: [id number] 4Result Comment: [id number] Medications albuterol CFC free 90 mcg/inh inhalation [...] Gm, 11 Refills, Maintenance, 07/08/20 16:47:00 EST, [place], [facility], 1 sprays [...] tablet, 1 Refills, Maintenance, 03/09/22 9:51:00 EDT, [facility], 191, cm, 02/11/22 11:45:00 EDT, Height, 170, kg, 02/05/22 22:35:00 EDT, Dry Weight Start Date: 03/09/22 Status: Ordered LORazepam 2 mg oral tablet 1 tablet = 2 mg, By Mouth, 3 times a day, PRN for anxiety, # 90 tablet, 2 Refills, Maintenance, 06/11/21 16:39:00 EST, Tablet, [facility], 190, cm, 04/03/21 10:25:00 EDT, Height, 153, kg, 01/14/21 23:22:00 EDT, Dry Weight Start Date: 06/11/21 Status: Ordered metFORMIN 1000 mg oral tablet 1 tablet = 1,000 mg, By Mouth, Daily, # 90 tablet, 1 Refills, Maintenance, 03/15/22 18:36:00 EDT, [facility], 191, cm, 02/11/22 11:45:00 EDT, Height, 170, kg, 02/05/22 22:35:00 EDT, Dry Weight Start Date: 03/15/22 Status: Ordered Metoprolol Succinate ER 50 mg oral tablet, extended release 1 tablet, By Mouth, Daily, # 90 tablet, 1 Refills, Maintenance, 07/23/22 4:11:00 EST, [facility], 191, cm, 02/11/22 11:45:00 EDT, Height, 170, kg, 02/05/22 22:35:00 EDT, Dry Weight Start Date: 07/23/22 Status: Ordered Narcan 4 mg/0.1 mL nasal spray = 4 mg, Naris, Left, Once, PRN overdose, # 2 each, 0 Refills, Soft Stop, 09/24/21 18:09:00 EDT, [facility], Partial fill upon patient request [...] 360 capsule, 2 Refills, Maintenance, 05/17/22 11:00:00 [facility], [facility], 191, cm, 02/11/22 11:45:00 EDT, [...] tablet, 5 Refills, Maintenance, 07/08/22 10:43:00 EST, [facility], 191, cm, 02/11/22 11:45:00 EDT, [...] Painful peripheral neuropathy - NOS Confirmed Active group 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 Confirmed Active PTSD - Post-traumatic stress disorder Confirmed Active Limited mobility Confirmed Active Severe obesity Confirmed Active Non-insulin dependent type 2 diabetes mellitus Confirmed Active Social History Social History Type Response Smoking Status Never entered on: 05/15/18 Sex Patient Care team information Care Team Personnel Name: Gladis Carrizales RN Position: [facility] RN Member Role: Primary Care Nurse Name: Ebony Santoyo RN Position: [facility] RN Member Role: Primary Care Nurse Name: Siobhan Ko RN Position: [facility] RN Member Role: Primary Care Nurse Name: Evette Marrero Position: [facility] RN Supv Member Role: Primary Care Nurse Name: Aviva Howard RN Position: [facility] RN Member Role: Primary Care Nurse Name: Hilda Doyle RN Position: [facility] RN Supv Member Role: Primary Care Nurse Name: Kimmy Ahumada NP Position: [facility] Associate Professional Member Role: Primary Care Nurse Address: Address: [address] [place] [address]- Name: Bruce Mccurdy MD Position: [facility] Renal MD Member Role: Lifetime Consulting Physician Address: Address: [address] [place] [address], [address] [facility] [place] [address]- [place] Name: Regis Huang RN Position: [facility] RN Member Role: Primary Care Nurse Name: JO GONZALEZ RN Position: [facility] RN Member Role: Primary Care Nurse Name: Mirella Mabry RN Position: [facility] RN Member Role: Primary Care Nurse Name: Shelby Luna RN Position: [facility] RN Member Role: Primary Care Nurse Name: Sarina Camejo RN Position: [facility] RN Member Role: Primary Care Nurse Name: Lachelle Shine RN Position: [facility] RN Member Role: Primary Care Nurse Name: Leilani Lerma RN Position: [facility] HBO Wound Member Role: Primary Care Nurse Name: Sandrita Portillo LPN Position: [facility] RN Member Role: Primary Care Nurse Name: Corina Munoz RN Position: [facility] RN Member Role: Primary Care Nurse Name: Vania Hernandez Position: [facility] RN Member Role: Primary Care Nurse Name: Mukul Dougherty RN Position: [facility] RN Member Role: Primary Care Nurse Name: Hammad Gambino RN Position: [facility] RN Member Role: Primary Care Nurse Name: Kenia Rao RN Position: [facility] RN Member Role: Primary Care Nurse Name: Michele Villavicencio RN Position: [facility] RN Member Role: Primary Care Nurse Name: Brown Parada MD Position: [facility] Primary Care Physician Member Role: PCP Address: Address: [address] [place] [address]- [place] Name: Charlette Lopez RN Position: [facility] RN Member Role: Primary Care Nurse Name: Elena Sheikh RN Position: [facility] RN Member Role: Primary Care Nurse Name: Theodora Serna RN Position: [facility] PCO RN Member Role: Primary Care Nurse Name: Yang Silva RN Position: [facility] RN Member Role: Primary Care Nurse Name: Xiomara Mario RN Position: [facility] RN Member Role: Primary Care Nurse Name: Meg Norman RN Position: [facility] RN Member Role: Primary Care Nurse Name: Latanya Garza RN Position: [facility] RN Member Role: Primary Care Nurse Name: Jaimie Gibson RN Position: [facility] RN Member Role: Primary Care Nurse Name: Lidia Bacon RN Position: [facility] RN Member Role: Primary Care Nurse Name: Carmen Bruner RN Position: [facility] RN Member Role: Primary Care Nurse Name: Kirill Mccartney RN Position: [facility] RN Member Role: Primary Care Nurse Name: Chacha Hassan RN Position: S RN Member Role: Primary Care Nurse Name: Earlene Grayson RN Position: [facility] SN RN Member Role: Primary Care Nurse Name: Cem Carroll MD Position: [facility] Renal MD Member Role: Lifetime Consulting Physician Address: Address: [address] [place] [address] [facility] [address] Name: Aretha Duke RN Position: [facility] RN Member Role: Primary Care Nurse Name: Shilpa Richardson RN Position: [facility] RN Member Role: Primary Care Nurse Name: Eusebia Hassan RN Position: [facility] RN Member Role: Primary Care Nurse Name: Arsalan Cai RN Position: [facility] RN Member Role: Primary Care Nurse Care Team Related Persons Name: JIMENEZ BRUNER Address: home [address] [place] [address] Name: LIZA ANYA Address: home [address] [place] [address]
--- OUTSIDE RECORDS SUMMARY | 2022-10-04 17:49 | XMS_ITS | Continuity of Care Document ---
Author Name Unknown Organization [facility] Aung Address [address] [place] [address]- Care Team Providers Care Pipeline Technician Name Role Phone Sanaz WILKINS, Matheus Castro Primary Care Physician [phone] Encounter [facility] Date(s): 06/24/20 - 07/24/20 [facility] Adult [address] [place] [address]- Allergies, Adverse Reactions, Alerts Substance Reaction Severity [...] kyle tetanus/diphtheria/pertussis, acel(Tdap) 05/07/09 Given 1Result Comment: [id number] 2Result Comment: [id number] 3Result Comment: [05/15/2018] 14391-471-28 Medications acetaminophen 325 mg oral tablet 650 mg, By Mouth, Every 4 hours, PRN, Refills 0, Maintenance, Pain , Mild, 12/12/19 13:05:00 EDT Start Date: 12/12/19 Status: Ordered albuterol CFC free 90 mcg/inh inhalation aerosol 2, puffs, Inhalation, Every 4 hours, PRN, # 18 Gm, Refills 5, Tot. Refills 5, Maintenance, 06/24/2115:37:00 EST, Aerosol, Route to Pharmacy Electronically, [id number], [facility], 191, giovani, 06/24/20 13:40:00 EST,... Start Date: 06/24/20 Status: [...] 05/07/20 10:14:00 EST, Route to Pharmacy Electronically, [facility], 191, cm, 12/27/19 [...] EDT, Route to Pharmacy Electronically, [facility], 191, cm, 07/23/2013:30:00 EST, Height, 193.5, kg, 05/21/19 5:38:00 EST,... Start Date: 12/12/19 Status: Ordered Flonase 50 mcg/inh nasal spray 1 sprays, Nares, Both, 2 times a day, # 16 Gm, 11 Refills, Maintenance, 07/08/20 16:47:00 EST, [place], [facility], 1 sprays Nares, Both 2 times a day, 191, cm, 06/24/20 13:40:00 EST, Height, 193.5, kg, 05/21/19 5:38:00 EST, Dry Weight Start Date: 07/08/20 Status: Ordered gabapentin 300 mg oral capsule 300 mg, 1, capsule, By Mouth, 4 times a day, # 120 capsule, Refills 11, Tot. Refills 11, Maintenance, 07/24/20 17:44:00 EST, Route to Pharmacy Electronically, [facility], 191, cm, 06/24/20 13:40:00 EST, [...] 02/20/20 14:34:00 EDT, Route to Pharmacy Electronically, [facility], 191, cm, 12/27/19 12:20:00 EDT, Height, 193.5, kg, 05/21/19 5:38:00 EST, Dry... Start Date: 02/20/20 Status: Ordered Lasix 40 mg oral tablet 40 mg, 1, tablet, By Mouth, 2 times a day, # 60 tablet, Refills 5, Tot. Refills 5, Maintenance, 03/31/20 17:16:00 EDT, Route to Pharmacy Electronically, [facility], 191, cm, 12/27/2011:20:00 EDT, Height, 193.5, kg, 05/21/19 5:38:00 EST,... Start Date: 03/31/20 Status: Ordered lisinopril 40 mg oral tablet 1 tablet = 40 mg, By Mouth, Daily, APPOINTMENT 02/26/20, # 10 tablet, 0 Refills, Maintenance, 02/22/20 13:44:00 EDT, Tablet, [facility], 191, cm, 12/27/19 12:20:00 EDT, [...] Dry Weight Start Date: 07/23/20 Status: Ordered Metoprolol Succinate ER 50 mg oral tablet, extended release 1 tablet = 50 mg, By Mouth, Daily, # 90 tablet, 3 Refills, Soft Stop, 05/07/20 13:32:00 EST, [facility], 191, cm, 12/27/19 12:20:00 EDT, Height, 193.5, kg, 05/21/19 5:38:00 EST, Dry Weight Start Date: 05/07/20 Status: Ordered nystatin topical 661421 u/gm powder See Instructions, Topically 2 times [...] #180 Unknown, 3 Refills, Maintenance, [facility], 191, cm, 06/24/20 13:40:00 EST, Height, 193.5, kg, 05/21/19 5:38:00 EST, Dry Weight Start Date: 07/08/20 Status: Ordered prazosin 5 mg oral capsule 5 mg, 1, capsule, By Mouth, Daily at bedtime, # 30 capsule, Refills 5, Tot. Refills 5, Maintenance,07/19/19 15:02:00 EST, Route to Pharmacy Electronically, [facility], 191, cm, 07/18/19 14:17:00 EST, [...] 5 Refills, Maintenance, 04/25/20 14:23:00 EST, Tablet, [facility], 191, cm, 12/27/19 12:20:00 EDT, Height, 193.5, kg, 05/21/19 5:38:00EST, Dry Weight Start Date: 04/25/20 Status: Ordered spironolactone 25 mg oral tablet 25 mg, 1, tablet, By Mouth, Daily, # 30 tablet, Refills 5, Tot. Refills 5, Maintenance, 02/19/20 9:52:00 EDT, Route to Pharmacy Electronically, [facility], 191, cm, 12/27/19 12:20:00EDT, Height, 193.5, kg, 05/21/19 5:38:00 EST, Dry Weight Start Date: 02/19/20 Status: Ordered traZODone 50 mg oral tablet 100 mg, 2, tablet, By Mouth, Daily at bedtime, # 60 tablet, Refills 5, Tot. Refills 5, Maintenance,06/23/20 11:13:00 EST, Route to Pharmacy Electronically, [address] [facility], 191, cm, 12/27/19 12:20:00 [...]
--- OUTSIDE RECORDS SUMMARY | 2022-10-04 17:49 | XMS_ITS | Continuity of Care Document ---
Author Name Unknown Organization [facility] Aung Address [address] [place] [address]- Care Team Providers Care Servomechanism Assembler Name Role Phone Tal WILKINS, Brown Paz Primary Care Physician Encounter [facility] Date(s): 03/31/22 - 04/30/22 [facility] Adult [address] [place] [address]- Allergies, Adverse Reactions, Alerts Substance Reaction Severity Status clindamycin Hives Active penicillin rash Active antivenin (black spider) Active Latex anaphylaxis Active Bee Stings Active Contrast Dye urticaria [...] Reason: Med Not Available 2Result Comment: [05/15/2018] 68236-690-63 3Result Comment: [id number] 4Result Comment: [id number] Medications apixaban 5 mg oral tablet 1 [...] Gm, 11 Refills, Maintenance, 07/08/20 16:47:00 EST, [place], [facility], 1 sprays [...] EDT, Route to Pharmacy Electronically, [facility], 191, cm, 02/11/22 11:45:00 EDT, Height, 170, kg, 02/05/22 22:35:00 EDT, . Start Date: 04/02/22 Status: Ordered hydrOXYzine hydrochloride 25 mg oral tablet 1 tablet, By Mouth, 3 times a day, # 84 tablet, 5 Refills, [facility], 191, cm, 12/10/21 10:57:00 EDT, [...] 0 Refills, Maintenance, 07/21/21 11:47:00 EST, Solution, [facility], Partial fill upon patient [...] COMMUNICATE SUGARS WITH PCP TO TITRATE LANTUS. [phone], 08/28... Start Date: 08/28/21 Status: Ordered nystatin topical 112982 u/gm powder 1 application, Topically, 3 times [...] opioid drug., 190, cm, 07/27/21 12:49:00 EST, [place]... 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 Confirmed Active Limited mobility Confirmed Active Severe obesity Confirmed Active Non-insulin dependent type 2 diabetes mellitus Confirmed Active Social History Social History Type Response Smoking Status Never entered on: 05/15/18 Sex Patient Care team information Care Team Personnel Name: Gladis Carrizales RN Position: S RN Member Role: Primary Care Nurse Name: Ebony Santoyo RN Position: S RN Member Role: Primary Care Nurse Name: Siobhan Ko RN Position: S RN Member Role: Primary Care Nurse Name: Evette Marrero Position: S RN Supv Member Role: Primary Care Nurse Name: Aviva Howard RN Position: [facility] RN Member Role: Primary Care Nurse Name: Hilda Doyle RN Position: [facility] RN Member Role: Primary Care Nurse Name: Kimmy Ahumada NP Position: [facility] Associate Professional Member Role: Primary Care Nurse Address: Address: [address] [place] [address]- [place] Name: Bruce Mccudry MD Position: [facility] Renal MD Member Role: Lifetime Consulting Physician Address: Address: [address] [place] [address], [address] [facility] [place] [address]- [place] Name: Cristo Elias RN Position: [facility] RN Member Role: Primary Care Nurse Name: Malika Richards RN Position: [facility] Software Maintenance Engineer Member Role: Primary Care Nurse Name: JO GONZALEZ RN Position: [facility] RN Member Role: Primary Care Nurse Name: Shelby Luna RN Position: [facility] RN Member Role: Primary Care Nurse Name: Sarina Camejo RN Position: [facility] RN Member Role: Primary Care Nurse Name: Lachelle Shine RN Position: [facility] RN Member Role: Primary Care Nurse Name: Leilani Lerma RN Position: [facility] HBO Wound Member Role: Primary Care Nurse Name: Sandrita Portillo LPN Position: [facility] RN Member Role: Primary Care Nurse Name: Corina Munoz RN Position: [facility] RN Member Role: Primary Care Nurse Name: Vania Hernandez Position: [facility] RN Member Role: Primary Care Nurse Name: Mukul Dougherty RN Position: [facility] RN Member Role: Primary Care Nurse Name: Hammad Gambino RN Position: [facility] RN Member Role: Primary Care Nurse Name: Kenia Rao RN Position: [facility] RN Member Role: Primary Care Nurse Name: Michele Villavicencio RN Position: [facility] RN Member Role: Primary Care Nurse Name: Brown Parada MD Position: [facility] Primary Care Physician Member Role: PCP Address: Address: [address] [place] [address]- [place] Name: Charlette Lopez RN Position: [facility] RN Member Role: Primary Care Nurse Name: Elena Sheikh RN Position: [facility] RN Member Role: Primary Care Nurse Name: Theodora Serna RN Position: [facility] PCO RN Member Role: Primary Care Nurse Name: Yang Silva RN Position: [facility] RN Member Role: Primary Care Nurse Name: Xiomara Mario RN Position: [facility] RN Member Role: Primary Care Nurse Name: Meg Norman RN Position: [facility] RN Member Role: Primary Care Nurse Name: Latanya Garza RN Position: [facility] RN Member Role: Primary Care Nurse Name: Jaimie Gibson RN Position: [facility] RN Member Role: Primary Care Nurse Name: Carmen Bruner RN Position: [facility] RN Member Role: Primary Care Nurse Name: Kirill Mccartney RN Position: [facility] RN Member Role: Primary Care Nurse Name: Chacha Hassan RN Position: [facility] RN Member Role: Primary Care Nurse Name: Earlene Grayson RN Position: [facility] SN RN Member Role: Primary Care Nurse Name: Cem Carroll MD Position: [facility] Renal MD Member Role: Lifetime Consulting Physician Address: Address: [address] [place] [address] [facility] [address] Name: Eusebia Hassan RN Position: [facility] RN Member Role: Primary Care Nurse Care Team Related Persons Name: JIMENEZ BRUNER Address: home [address] [place] [address] Name: ANYA DE JESUS Address: home [address] [place] [address]
--- OUTSIDE RECORDS SUMMARY | 2022-10-04 17:49 | XMS_ITS | Continuity of Care Document ---
Author Name Unknown Organization [facility] Address [address] [place] [address] [address] [place] [address]- Care Team Providers Care Electroplating Laborer Name Role Phone Brown Parada MD Primary Care Physician Encounter [facility] Date(s): 12/24/21 - 04/02/22 [facility] [address] [place] [address]- Attending Physician: Dianna Gonzalez Referring Physician: Brown Parada MD Allergies, Adverse Reactions, Alerts Substance Reaction Severity Status clindamycin Hives Active penicillin rash Active antivenin (black spider) Active Bee Stings Active Contrast Dye urticaria [...] Reason: Med Not Available 2Result Comment: [05/15/2018] 10529-885-74 3Result Comment: [id number] 4Result Comment: [id number] Medications apixaban 5 mg oral tablet 1 [...] Gm, 11 Refills, Maintenance, 07/08/20 16:47:00 EST, [place], [facility], 1 sprays [...] EDT, Route to Pharmacy Electronically, [facility], 191, cm, 02/11/22 11:45:00 EDT, Height, 170, kg, 02/05/22 22:35:00 EDT, . Start Date: 04/02/22 Status: Ordered hydrOXYzine hydrochloride 25 mg oral tablet 1 tablet, By Mouth, 3 times a day, # 84 tablet, 5 Refills, [facility], 191, cm, 12/10/21 10:57:00 EDT, [...] 0 Refills, Maintenance, 07/21/21 11:47:00 EST, Solution, [facility], Partial fill upon patient request if [...] COMMUNICATE SUGARS WITH PCP TO TITRATE LANTUS. [phone], 08/28... Start Date: 08/28/21 Status: Ordered One [...] 0, Tot. Refills0, Maintenance, Pain , Severe, 03/16/22 17:01:00 E... Start Date: 03/16/22 Status: Ordered pantoprazole 40 mg oral delayed [...] II opioid drug., 190, cm, 07/27/21 12:49:00 Maureen GARY... Start Date: 08/17/21 Stop Date: 02/13/22 Status: [...] Painful peripheral neuropathy - NOS Confirmed Active [place] prescription benzodiazepine use Confirmed Active Limited mobility Confirmed Active Severe obesity Confirmed Active Non-insulin dependent type 2 diabetes mellitus Confirmed Active Social History Social History Type Response Smoking Status Never entered on: 05/15/18 Sex Patient Care team information Personnel Name: Tal WILKINS, Brown Paz Address: Address: [address] [place] [id number]
--- OUTSIDE RECORDS SUMMARY | 2022-10-04 17:49 | XMS_ITS | Continuity of Care Document ---
Author Name Unknown Organization [facility] Eddie Aung Address [address] [place] [address]- Care Team Providers Care Dietetic Aide Name Role Phone Sanaz WILKINS, Matheus Castro Primary Care Physician [phone] Encounter [facility] Date(s): 02/01/20 - 03/02/20 [facility] Adult [address] [place] [address]- [facility] Allergies, Adverse Reactions, Alerts Substance Reaction Severity Status clindamycin Hives Active penicillin rash Active aspirin Active Bee Stings Active Contrast Dye urticaria Active antivenin (black spider) Active Latex anaphylaxis Active Immunizations Given and Recorded Vaccine Date Status Refusal Reason tetanus-diphtheria toxoids (Td) 1 07/18/19 Given pneumococcal 23-valent vaccine 2 07/18/19 Given influenza virus vaccine, inactivated 3 05/15/18 Gi kyle tetanus/diphtheria/pertussis, acel(Tdap) 05/07/09 Given 1Result Comment: [id number] 2Result Comment: [id number] 3Result Comment: [05/15/2018] 94415-277-51 Medications acetaminophen 325 mg oral tablet 650 [...] 10/25/19 8:57:00 EDT, Route to Pharmacy Electronically, [facility], 191, cm, 07/23/19 14:30:00EST, Height, 193.5, kg, 05/21/19 5:38:00 EST, Dry Weight Start Date: 10/25/19 Stop Date: 04/22/20 Status: Ordered cyanocobalamin 1000 mcg oral tablet, extended release 1 tablet = 1,000 mcg, By Mouth, Daily, # 30 tablet, 11 Refills, Maintenance, 02/21/20 10:38:00 EDT,[facility], 191, cm, 12/27/19 12:20:00 EDT, [...] EDT, Route to Pharmacy Electronically, [facility], 191, cm, 07/23/2013:30:00 EST, Height, 193.5, kg, 05/21/19 5:38:00 EST,... Start Date: 12/12/19 Status: Ordered Flonase 50 mcg/inh nasal spray 1 sprays, Nares, Both, 2 times a day, # 16 Gm, 0 Refills, Maintenance, 05/23/18 10:06:41 EST, [place], 1 sprays Nares, Both 2 times a day Start Date: 05/23/18 Status: Ordered gabapentin 300 mg oral capsule 300 mg, 1, capsule, By Mouth, Daily, APPOINTMENT 02/26/20, # 10 capsule, Refills 0, Tot. Refills 0, Maintenance, 02/22/20 13:44:00 EDT, Route to Pharmacy Electronically, [facility], 191, cm, 12/27/19 12:20:00 EDT, [...] EDT, Route to Pharmacy Electronically, [facility], 191, cm, 12/27/19 12:20:00 EDT, [...] anxiety, # 90 tablet, 0 Refills, Maintenance, 02/21/20 11:36:00 EDT, Tablet, [facility], 191, cm, 12/27/19 12:20:00 EDT, Height, 193.5, kg, 05/21/19 5:38:00 EST, Dry Weight Start Date: 02/21/20 Status: Ordered Metoprolol Succinate ER 50 mg oral tablet, extended release 1 tablet = 50 mg, By Mouth, Daily, # 90 tablet, 3 Refills, Soft Stop, 08/06/19 14:50:00 EST, [facility], 191, cm, 07/23/19 14:30:00 EST, Height, 193.5, kg, 05/21/19 5:38:00 EST, Dry Weight Start Date: 08/06/19 Status: Ordered nystatin topical 455162 u/gm powder See Instructions, Topically 2 times [...] Maintenance,07/19/19 15:02:00 EST, Route to Pharmacy Electronically, [facility], 191, cm, 07/18/19 14:17:00 EST, Height, 193.5, kg, 05/21/19 5:38:00 E... Start Date: 07/19/19 Status: Ordered QUEtiapine 50 mg oral tablet 1 tablet = 50 mg, By Mouth, Daily, # 30 tablet, 5 Refills, Maintenance, 12/12/19 10:07:00 EDT, Tablet, [facility], 191, cm, 07/23/19 14:30:00 EST, Height, 193.5, kg, 05/21/19 5:38:00EST, Dry Weight Start Date: 12/12/19 Status: Ordered spironolactone 25 mg oral tablet 25 mg, 1, tablet, By Mouth, Daily, # 30 tablet, Refills 5, Tot. Refills 5, Maintenance, 02/19/20 9:52:00 EDT, Route to Pharmacy Electronically, [facility], 191, cm, 12/27/19 12:20:00EDT, Height, 193.5, kg, 05/21/19 5:38:00 EST, Dry Weight Start Date: 02/19/20 Status: Ordered traZODone 50 mg oral tablet 100 mg, 2, tablet, By Mouth, Daily at bedtime, # 60 tablet, Refills 5, Tot. Refills 5, Maintenance,02/01/20 10:29:00 EDT, Route to Pharmacy Electronically, [facility], 191, cm, 12/27/19 12:20:00 EDT, Height, 193.5, kg, 05/21/19 5:38:00 E... Start Date: 02/01/20 Status: Ordered Vitamin D3 2000 intl units oral tablet 1 tablet = 2,000 International_Units, By Mouth, Daily, # 90 tablet, 1 Refills, Maintenance, 02/20/20 14:34:00 EDT, [facility], 191, cm, 12/27/19 12:20:00 [...]
--- OUTSIDE RECORDS SUMMARY | 2022-10-04 17:49 | XMS_ITS | Continuity of Care Document ---
Author Name Unknown Organization [facility] As pending sale to [facility] Address [address] [place] [address] [address] [place] [address]- Care Team Providers Care Regional Sales Engineer Name Role Phone Sanaz WILKINS, Matheus Castro Primary Care Physician [phone] [place] [facility] - 07/13/[address] [place] [address]- [facility] Attending Physician: Jong Miller MD Allergies, Adverse Reactions, Alerts Substance Reaction Severity Status clindamycin Hives Active penicillin rash Active aspirin Active Bee Stings Active Contrast Dye urticaria Active Latex anaphylaxis Active antivenin (black spider) Active Immunizations Given and Recorded Vaccine Date Status Refusal Reason influenza virus vaccine, inactivated 1 05/15/18 Gi kyle tetanus/diphtheria/pertussis, acel(Tdap) 05/07/09 Given 1Result Comment: [05/15/2018] 75015-279-07 Medications amLODIPine 5 mg oral tablet 5 [...] 01/29/19 17:13:14 EDT, Route to Pharmacy Electronically, [id number], [facility] Start Date: [...] Gm, 0 Refills, Maintenance, 05/23/18 10:06:41 EST, [place], 1 sprays Nares, Both 2 times a [...] 12/28/18 15:10:14 EDT, Route to Pharmacy Electronically, [id number], [id number] Start Date: 12/28/18 Status: Ordered lidocaine 5% topical film APPLY ONE PATCH TO THE KNEE AND APPLY ONE PATCH TO THE LOWER BACK DAILY UTD. Start Date: 06/01/18 Status: Ordered lisinopril 40 mg oral tablet See Instructions, # 30 tablet, Refills 5 Tot. 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
--- OUTSIDE RECORDS SUMMARY | 2022-10-04 17:49 | XMS_ITS | Continuity of Care Document ---
Author Name Unknown Organization [facility] Eddie Aung lt Address [address] [place] [address]- Care Team Providers Care Bike Technician Name Role Phone Tal WILKINS, Brown Paz Primary Care Physician [place] [facility] [place] 07/10/22 [facility] Adult [address] [place] [address]- Allergies, Adverse Reactions, Alerts Substance Reaction Severity [...] Reason: Med Not Available 2Result Comment: [05/15/2018] 80168-182-07 3Result Comment: [id number] 4Result Comment: [id number] Medications albuterol CFC free 90 mcg/inh inhalation [...] Gm, 11 Refills, Maintenance, 07/08/20 16:47:00 EST, [place], [facility], 1 sprays [...] 04/02/22 5:55:00 EDT, Route to Pharmacy Electronically, [facility], 191, cm, 02/11/22 11:45:00 EDT, Height, 170, kg, 02/05/22 22:35:00 EDT, . Start Date: 04/02/22 Status: Ordered hydrOXYzine hydrochloride 25 mg oral tablet 1 tablet, By Mouth, 3 times a day, # 84 tablet, 5 Refills, Maintenance, 06/11/22 11:15:00 EST, [facility], 191, cm, 02/11/22 11:45:00 [...] COMMUNICATE SUGARS WITH PCP TO TITRATE LANTUS. [phone], 08/28... Start Date: 08/28/21 Status: Ordered One [...] capsule, 2 Refills, Maintenance, 05/17/22 11:00:00 EST, [facility], 191, cm, 02/11/22 11:45:00 [...] tablet, 5 Refills, Maintenance, 07/08/22 10:43:00 EST, [facility], 191, cm, 02/11/22 11:45:00 EDT, Height, 170, kg, 02/05/22 22:35:00 EDT, Dry Weight Start Date: 07/08/22 Status: Ordered Vitamin D3 2000 intl units oral tablet 1 tablet, By Mouth, Daily, # 28 tablet, 4 Refills, [facility], 191, cm, 08/28/21 11:32:00 EDT, [...] Painful peripheral neuropathy - NOS Confirmed Active 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 Confirmed Active Limited mobility Confirmed Active Severe obesity Confirmed Active Non-insulin dependent type 2 diabetes mellitus Confirmed Active Social History Social History Type Response Smoking Status Never entered on: 05/15/18 Sex Patient Care team information Care Team Personnel Name: All BOSS Gladis Loyolamagdaleno Position: [facility] RN Member Role: Primary Care Nurse Name: Ebony Santoyo RN Position: [facility] RN Member Role: Primary Care Nurse Name: Siobhan Ko RN Position: [facility] RN Member Role: Primary Care Nurse Name: Evette Marrero Position: [facility] RN Supv Member Role: Primary Care Nurse Name: Aviva Howard RN Position: [facility] RN Member Role: Primary Care Nurse Name: Hilda Doyle RN Position: [facility] RN Supv Member Role: Primary Care Nurse Name: Kimmy Ahumada NP Position: [facility] Associate Professional Member Role: Primary Care Nurse Address: Address: [address] [place] [id number] Name: Bruce Mccurdy MD Position: [facility] Renal MD Member Role: Lifetime Consulting Physician Address: Address: [address] [place] [address], [address] [facility] [place], [place] [address] Name: Malika Richards RN Position: [facility] Pipe Chipper Member Role: Primary Care Nurse Name: JO GONZALEZ RN Position: [facility] RN Member Role: Primary Care Nurse Name: Shelby Luna RN Position: [facility] RN Member Role: Primary Care Nurse Name: Sarina Camejo RN Position: [facility] RN Member Role: Primary Care Nurse Name: Lachelle Shine RN Position: [facility] RN Member Role: Primary Care Nurse Name: Leilani Lerma RN Position: [facility] HBO Wound Member Role: Primary Care Nurse Name: Sandrita Portillo LPN Position: [facility] RN Member Role: Primary Care Nurse Name: Corina Munoz RN Position: [facility] RN Member Role: Primary Care Nurse Name: Vania Hernandez Position: [facility] RN Member Role: Primary Care Nurse Name: Mukul Dougherty RN Position: [facility] RN Member Role: Primary Care Nurse Name: Hammad Gambino RN Position: [facility] RN Member Role: Primary Care Nurse Name: Kenia Rao RN Position: [facility] RN Member Role: Primary Care Nurse Name: Michele Villavicencio RN Position: [facility] RN Member Role: Primary Care Nurse Name: Brown Parada MD Position: [facility] Primary Care Physician Member Role: PCP Address: Address: [address] [place] [address]- [place] Name: Charlette Lopez RN Position: [facility] RN Member Role: Primary Care Nurse Name: Elena Sheikh RN Position: [facility] RN Member Role: Primary Care Nurse Name: Theodora Serna RN Position: [facility] PCO RN Member Role: Primary Care Nurse Name: Yang Silva RN Position: [facility] RN Member Role: Primary Care Nurse Name: Xiomara Mario RN Position: [facility] RN Member Role: Primary Care Nurse Name: Meg [place] RN Position: [facility] RN Member Role: Primary Care Nurse Name: Latanya Garza RN Position: [facility] RN Member Role: Primary Care Nurse Name: Jaimie Gibson RN Position: [facility] RN Member Role: Primary Care Nurse Name: Carmen Bruner RN Position: [facility] RN Member Role: Primary Care Nurse Name: Kirill Mccartney RN Position: [facility] RN Member Role: Primary Care Nurse Name: Chacha Hassan RN Position: [facility] RN Member Role: Primary Care Nurse Name: Earlene Grayson RN Position: [facility] SN RN Member Role: Primary Care Nurse Name: Cem Carroll MD Position: [facility] Renal MD Member Role: Lifetime Consulting Physician Address: Address: [address] [place] [address] [facility] [place] [address]- [place] Name: Eusebia Hassan RN Position: [facility] RN Member Role: Primary Care Nurse Care Team Related Persons Name: JIMENEZ BRUNER Address: home [address] [place] [address] Name: ANYA DE JESUS Address: [address] [place] [address]
--- OUTSIDE RECORDS SUMMARY | 2022-10-04 17:49 | XMS_ITS | Continuity of Care Document ---
Author Name Unknown Organization [facility] Aung lt Address [address] [place] [address]- Care Team Providers Care Manager Enterprise Content Management Name Role Phone Tal WILKINS, Brown Paz Primary Care Physician Encounter [facility] [place] Date(s): 12/18/21 - 01/17/22 [facility] Adult [address] [place] [address]- Allergies, Adverse Reactions, Alerts Substance Reaction Severity [...] Reason: Med Not Available 2Result Comment: [05/15/2018] 74393-210-35 3Result Comment: [id number] 4Result Comment: [id number] Medications acetaminophen 325 mg oral tablet 650 [...] Gm, 11 Refills, Maintenance, 07/08/20 16:47:00 EST, [place], [facility], 1 sprays [...] EDT, Route to Pharmacy Electronically, [facility], Partial fill upon patient request... Start Date: 12/11/21 Status: Ordered hydrOXYzine hydrochloride 25 mg oral tablet 1 tablet, By Mouth, 3 times a day, # 84 tablet, 5 Refills, [facility], 191, cm, 12/10/21 10:57:00 EDT, Height, 168.5, kg, 08/18/21 22:23:00 EDT, Dry Weight Start Date: 12/22/21 Status: Ordered Insulin Syringe, BD Ultra-Fine 0.3 [...] 0 Refills, Maintenance, 07/21/21 11:47:00 EST, Solution, [facility], Partial fill upon patient request [...] COMMUNICATE SUGARS WITH PCP TO TITRATE LANTUS. [phone], 08/28... Start Date: 08/28/21 Status: Ordered One [...] 0, Tot. Refills0, Maintenance, Pain , Severe, 01/14/22 16:47:00 E... Start Date: 01/14/22 Status: Ordered pantoprazole 40 mg oral delayed release tablet 1 tablet, By Mouth, Daily, # 28 tablet, 2 Refills, 191, cm, 08/28/21 11:32:00 EDT, Height, 168.5, kg, 08/18/21 22:23:00 EDT, Dry Weight Start Date: 12/03/21 Status: Ordered phenytoin 100 mg oral capsule, [...] 168 capsule, 5 Refills, 09/15/21 5:56:00 EDT, [facility], 191, cm, 08/28/21 11:32:00 EDT, Height, 168.5, kg, 08/18/21 22:23:00 EDT... Start Date: 09/15/21 Status: Ordered prazosin 5 mg oral capsule 5 mg, 1, capsule, By Mouth, Daily at bedtime, BUBBLE PACK, # 28 capsule, Refills 4, Tot. Refills 4,Maintenance, 04/02/21 8:22:00 EDT, Route to Pharmacy Electronically, [facility], 190, cm, 01/23/21 8:35:00 EDT, Height, 153, kg, 01/14/21... Start Date: 04/02/21 Status: Ordered ProAir HFA 90 mcg/inh inhalation aerosol 2 puffs, Inhalation, Every 4 hours, PRN Wheezing/Shortness of Breath, # 1 each, 5 Refills, Maintenance, 06/27/20 16:56:00 EST, [facility], Partial fill upon patient request [...] Painful peripheral neuropath y - NOS(Confirmed) Active snf prescription benzo diazepine use(Confirmed) Active Limited mobility(Confirmed) Active Severe obesity(Confirmed) Active Non-insulin dependent type 2 diabetes mellitus(Confirmed) Active Social History Social History Type Response Smoking Status Never entered on: 05/15/18 Sex
--- OUTSIDE RECORDS SUMMARY | 2022-10-04 17:49 | XMS_ITS | Continuity of Care Document ---
Author Name Unknown Organization [facility] Aung Address [address] [place] [address]- Care Team Providers Care Preparation Plant Supervisor Name Role Phone Sanaz WILKINS, Matheus Castro Primary Care Physician Encounter [facility] Date(s): 04/28/20 - 05/28/20 [facility] Adult [address] [place] [address]- Attending Physician: Raji Shoemaker Admitting Physician: AdmtrRaji Referring Physician: Admtr Ar8 Allergies, Adverse Reactions, Alerts Substance Reaction [...] kyle tetanus/diphtheria/pertussis, acel(Tdap) 05/07/09 Given 1Result Comment: [id number] 2Result Comment: [id number] 3Result Comment: [05/15/2018] 60272-425-92 Medications acetaminophen 325 mg oral tablet 650 [...] EST, Route to Pharmacy Electronically, [facility], 191, cm, 12/27/19 12:20:00 EDT, Height, 193.5, kg, 05/21/19 5:38:00 EST, Dry Weight Start Date: 05/07/20 Stop Date: 11/03/20 Status: Ordered cyanocobalamin 1000 mcg oral tablet, extended release 1 tablet = 1,000 mcg, By Mouth, Daily, # 30 tablet, 11 Refills, Maintenance, 02/21/20 10:38:00 EDT,[facility], 191, cm, 12/27/19 12:20:00 EDT, [...] 12/12/19 13:24:00 EDT, Route to Pharmacy Electronically, [facility], 191, cm, 07/23/2013:30:00 EST, Height, 193.5, kg, 05/21/19 5:38:00 EST,... Start Date: 12/12/19 Status: Ordered Flonase 50 mcg/inh nasal spray 1 sprays, Nares, Both, 2 times a day, # 16 Gm, 0 Refills, Maintenance, 05/23/18 10:06:41 EST, [place], 1 sprays Nares, Both 2 times a day Start Date: 05/23/18 Status: Ordered gabapentin 300 mg oral capsule 300 mg, 1, capsule, By Mouth, 3 times a day, # 90 capsule, Refills 11, Tot. Refills 11, Maintenance, 04/28/20 13:15:00 EST, Route to Pharmacy Electronically, [facility], 191, cm, 12/27/19 12:20:00 EDT, Height, 193.5, kg, 05/21/19 5:38:00... Start Date: 04/28/20 Stop Date: 04/23/21 Status: Ordered hydrOXYzine hydrochloride 25 mg oral tablet 1 tablet = 25 mg, By Mouth, 3 times a day, # 90 tablet, 11 Refills, Maintenance, 04/09/20 16:46:00 EST, Tablet, [facility], 191, cm, 12/27/19 12:20:00 EDT, Height, 193.5, kg, 05/21/19 5:38:00 EST, Dry Weight Start Date: 04/09/20 Status: Ordered isosorbide mononitrate 60 mg oral tablet, extended release 60 mg, 1, tablet, By Mouth, Daily in AM, # 90 tablet, Refills 0, Tot. Refills 0, Soft Stop, 02/20/20 14:34:00 EDT, Route to Pharmacy Electronically, [facility], 191, cm, 12/27/19 12:20:00 EDT, Height, 193.5, kg, 05/21/19 5:38:00 EST, Dry... Start Date: 02/20/20 Status: Ordered Lasix 40 mg oral tablet 40 mg, 1, tablet, By Mouth, 2 times a day, # 60 tablet, Refills 5, Tot. Refills 5, Maintenance, 03/31/20 17:16:00 EDT, Route to Pharmacy Electronically, [facility], 191, cm, 12/27/2011:20:00 EDT, Height, 193.5, kg, 05/21/19 5:38:00 EST,... Start Date: 03/31/20 Status: Ordered lisinopril 40 mg oral tablet 1 tablet = 40 mg, By Mouth, Daily, APPOINTMENT 02/26/20, # 10 tablet, 0 Refills, Maintenance, 02/22/20 13:44:00 EDT, Tablet, [facility], 191, cm, 12/27/19 12:20:00 EDT, Height, 193.5,kg, 05/21/19 5:38:00 EST, Dry Weight Start Date: 02/22/20 Status: Ordered loperamide 2 mg oral tablet 1 tablet = 2 mg, By Mouth, Every 4 hours, PRN as needed for loose stool, not to exceed 16 mg/day, #100 tablet, 0 Refills, Maintenance, 04/28/20 13:13:00 EST, Tablet, [facility], Partial fill upon patient request, 191, cm, 12/27/19 12:20:... Start Date: 04/28/20 Status: Ordered LORazepam 2 mg oral tablet 1 tablet = 2 mg, By Mouth, 3 times a day, PRN for anxiety, # 90 tablet, 2 Refills, Maintenance, 04/28/20 13:18:00 EST, Tablet, [facility], 191, cm, 12/27/19 12:20:00 EDT, [...] Start Date: 05/07/20 Status: Ordered nystatin topical 698181 u/gm powder See Instructions, Topically 2 times [...] 02/19/20 9:52:00 EDT, Route to Pharmacy Electronically, [facility], 191, cm, 12/27/19 12:20:00EDT, Height, 193.5, kg, 05/21/19 5:38:00 EST, Dry Weight Start Date: 02/19/20 Status: Ordered traZODone 50 mg oral tablet 100 mg, 2, tablet, By Mouth, Daily at bedtime, # 60 tablet, Refills 5, Tot. Refills 5, Maintenance,02/01/20 10:29:00 EDT, Route to Pharmacy Electronically, [facility], 191, cm, 12/27/19 12:20:00 EDT, Height, 193.5, kg, 05/21/19 5:38:00 E... 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
--- OUTSIDE RECORDS SUMMARY | 2022-10-04 17:49 | XMS_ITS | Continuity of Care Document ---
Author Name Unknown Organization [facility] Address [address] [place] [address]- Care Team Providers Care Commercial Credit Specialist Name Role Phone Sanaz WILKINS, Matheus Castro Primary Care Physician [phone] Encounter [facility] Date(s): 10/16/20 - 11/15/20 [facility] Adult [address] [place] [address]- Allergies, Adverse Reactions, Alerts Substance Reaction Severity [...] kyle tetanus/diphtheria/pertussis, acel(Tdap) 05/07/09 Given 1Result Comment: [id number] 2Result Comment: [id number] 3Result Comment: [05/15/2018] 80776-041-38 Medications acetaminophen 325 mg oral tablet 650 mg, By Mouth, Every 4 hours, PRN, Refills 0, Maintenance, Pain , Mild, 12/12/19 13:05:00 EDT Start Date: 12/12/19 Status: Ordered albuterol CFC free 90 mcg/inh inhalation aerosol 2, puffs, Inhalation, Every 4 hours, PRN, # 18 Gm, Refills 5, Tot. Refills 5, Maintenance, 06/24/2115:37:00 EST, Aerosol, Route to Pharmacy Electronically, [id number], [facility], 191, cm, 06/24/20 [...] Status: Ordered clopidogrel 75 mg oral tablet 1, tablet, By Mouth, Daily, # 30 Unknown, Refills 11, Tot. Refills 0, Maintenance, 11/10/20 16:52:00 EDT, Route to Pharmacy Electronically, [facility], 191, cm, 06/24/20 13:40:00 EST, Height, 193.5, kg, 05/21/19 5:38:00 EST, Dry Weight Start Date: 11/10/20 Status: Ordered cyanocobalamin 1000 mcg oral tablet, [...] EDT, Route to Pharmacy Electronically, [facility], 191, cm, 07/23/2013:30:00 EST, Height, 193.5, kg, 05/21/19 5:38:00 EST,... Start Date: 12/12/19 Status: Ordered Flonase 50 mcg/inh nasal spray 1 sprays, Nares, Both, 2 times a day, # 16 Gm, 11 Refills, Maintenance, 07/08/20 16:47:00 EST, [place], [facility], 1 sprays Nares, Both 2 times a day, 191, cm, 06/24/20 13:40:00 EST, Height, 193.5, kg, 05/21/19 5:38:00 EST, Dry Weight Start Date: 07/08/20 Status: Ordered gabapentin 300 mg oral capsule 300 mg, 1, capsule, By Mouth, 4 times a day, # 120 capsule, Refills 11, Tot. Refills 11, Maintenance, 07/24/20 17:44:00 EST, Route to Pharmacy Electronically, [facility], 191, cm, 06/24/20 13:40:00 EST, Height, 193.5, kg, 05/21/19 5:38:00... Start Date: 07/24/20 Stop Date: 07/19/21 Status: Ordered hydrOXYzine hydrochloride 25 mg oral tablet 1 tablet = 25 mg, By Mouth, 3 times a day, # 90 tablet, 11 Refills, Maintenance, 04/09/20 16:46:00 EST, Tablet, [facility], 191, cm, 12/27/19 12:20:00 EDT, Height, 193.5, kg, 05/21/19 5:38:00 EST, Dry Weight Start Date: 04/09/20 Status: Ordered isosorbide mononitrate 60 mg oral tablet, extended release 60 mg, 1, tablet, By Mouth, Daily in AM, # 90 tablet, Refills 1, Tot. Refills 1, Soft Stop, 09/10/20 10:12:00 EDT, Route to Pharmacy Electronically, [facility], 191, cm, 06/24/20 13:40:00 EST, Height, 193.5, kg, 05/21/19 5:38:00 EST, Dry... Start Date: 09/10/20 Status: Ordered Lasix 40 mg oral tablet 40 mg, 1, tablet, By Mouth, 2 times a day, # 60 tablet, Refills 2, Tot. Refills 2, Maintenance, 10/09/20 12:37:00 EDT, Route to Pharmacy Electronically, [facility], 191, cm, 06/24/2112:40:00 EST, Height, 193.5, kg, 05/21/19 5:38:00 EST,... Start Date: 10/09/20 Status: Ordered lisinopril 40 mg oral tablet 1 tablet = 40 mg, By Mouth, Daily, APPOINTMENT 02/26/20, # 10 tablet, 0 Refills, Maintenance, 02/22/20 13:44:00 EDT, Tablet, [facility], 191, cm, 12/27/19 12:20:00 EDT, [...] anxiety, # 90 tablet, 2 Refills, Maintenance, 10/17/20 15:50:00 EDT, Tablet, [facility], 191, cm, 06/24/20 13:40:00 EST, Height, 193.5, kg, 05/21/19 5:38:00 EST, Dry Weight Start Date: 10/17/20 Status: Ordered metFORMIN 1000 mg oral tablet [...] Start Date: 05/07/20 Status: Ordered nystatin topical 132698 u/gm powder See Instructions, Topically 2 times [...] Refills, Maintenance, 06/27/20 16:56:00 EST, [facility], Partial fill upon patient request [...] Daily, # 30 Unknown, 5 Refills, Maintenance, 10/17/20 15:38:00 EDT, [facility], 191, cm, 06/24/20 13:40:00 EST, Height, 193.5, kg, 05/21/19 5:38:00 EST, Dry Weight Start Date: 10/17/20 Status: Ordered spironolactone 25 mg oral tablet 25 mg, 1, tablet, By Mouth, Daily, # 30 tablet, Refills 2, Tot. 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
--- OUTSIDE RECORDS SUMMARY | 2022-10-04 17:49 | XMS_ITS | Continuity of Care Document ---
Author Name Unknown Organization [facility] Address [address] [place] [address]- Care Team Providers Care Mechanical Meter Tester Name Role Phone Sanaz WILKINS, Matheus Castro Primary Care Physician [phone] Encounter [facility] Date(s): 02/20/20 - 03/21/20 [facility] Adult [address] [place] [address]- [facility] Allergies, Adverse Reactions, Alerts Substance [...] kyle tetanus/diphtheria/pertussis, acel(Tdap) 05/07/09 Given 1Result Comment: [id number] 2Result Comment: [id number] 3Result Comment: [05/15/2018] [id number] Medications acetaminophen 325 mg oral tablet 650 [...] 10/25/19 8:57:00 EDT, Route to Pharmacy Electronically, [facility], 191, cm, 07/23/19 14:30:00EST, Height, 193.5, kg, 05/21/19 5:38:00 EST, Dry Weight Start Date: 10/25/19 Stop Date: 04/22/20 Status: Ordered cyanocobalamin 1000 mcg oral tablet, extended release 1 tablet = 1,000 mcg, By Mouth, Daily, # 30 tablet, 11 Refills, Maintenance, 02/21/20 10:38:00 EDT,[facility], 191, cm, 12/27/19 12:20:00 EDT, [...] EDT, Route to Pharmacy Electronically, [facility], 191, cm, 07/23/2013:30:00 EST, Height, 193.5, kg, 05/21/19 5:38:00 EST,... Start Date: 12/12/19 Status: Ordered Flonase 50 mcg/inh nasal spray 1 sprays, Nares, Both, 2 times a day, # 16 Gm, 0 Refills, Maintenance, 05/23/18 10:06:41 EST, [place], 1 sprays Nares, Both 2 times a day Start Date: 05/23/18 Status: Ordered gabapentin 300 mg oral capsule 300 mg, 1, capsule, By Mouth, Daily, APPOINTMENT 02/26/20, # 10 capsule, Refills 0, Tot. Refills 0, Maintenance, 02/22/20 13:44:00 EDT, Route to Pharmacy Electronically, [facility], 191, cm, 12/27/19 12:20:00 EDT, [...] EDT, Route to Pharmacy Electronically, [facility], 191, cm, 12/27/19 12:20:00 EDT, [...] Start Date: 08/06/19 Status: Ordered nystatin topical 180081 u/gm powder See Instructions, Topically 2 times [...] Maintenance,07/19/19 15:02:00 EST, Route to Pharmacy Electronically, [facility], 191, cm, 07/18/19 14:17:00 EST, Height, 193.5, kg, 05/21/19 5:38:00 E... Start Date: 07/19/19 Status: Ordered QUEtiapine 50 mg oral tablet 1 tablet = 50 mg, By Mouth, Daily, # 30 tablet, 5 Refills, Maintenance, 12/12/19 10:07:00 EDT, Tablet, [facility], 191, cm, 07/23/19 14:30:00 EST, Height, 193.5, kg, 05/21/19 5:38:00EST, Dry Weight Start Date: 12/12/19 Status: Ordered spironolactone 25 mg oral tablet 25 mg, 1, tablet, By Mouth, Daily, # 30 tablet, Refills 5, Tot. Refills 5, Maintenance, 02/19/20 9:52:00 EDT, Route to Pharmacy Electronically, [facility], 191, cm, 12/27/19 12:20:00EDT, Height, 193.5, kg, 05/21/19 5:38:00 EST, Dry Weight Start Date: 02/19/20 Status: Ordered traZODone 50 mg oral tablet 100 mg, 2, tablet, By Mouth, Daily at bedtime, # 60 tablet, Refills 5, Tot. Refills 5, Maintenance,02/01/20 10:29:00 EDT, Route to Pharmacy Electronically, [facility], 191, cm, 12/27/19 12:20:00 EDT, Height, 193.5, kg, 05/21/19 5:38:00 E... Start Date: 02/01/20 Status: Ordered Vitamin D3 2000 intl units oral tablet 1 tablet = 2,000 International_Units, By Mouth, Daily, # 90 tablet, 1 Refills, Maintenance, 02/20/20 14:34:00 EDT, [facility], 191, cm, 12/27/19 12:20:00 [...] Painful peripheral neuropath y - NOS(Confirmed) Active [facility] prescription benzo 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
--- OUTSIDE RECORDS SUMMARY | 2022-10-04 17:49 | XMS_ITS | Continuity of Care Document ---
Author Name Unknown Organization [facility] lt Address [address] [place] [address]- Care Team Providers Care Hospital Pharmacy Technician Name Role Phone Brown Parada MD Primary Care Physician [phone] Encounter [facility] [place] Date(s): 07/27/21 - 08/03/21 [facility] Adult [address] [place] [address]- Attending Physician: Brown Parada MD Allergies, Adverse [...] Reason: Med Not Available 2Result Comment: [05/15/2018] [id number] 3Result Comment: [id number] 4Result Comment: [id number] Medications acetaminophen 325 mg oral tablet 650 [...] Dry Weight Start Date: 02/23/21 Status: Ordered ferrous sulfate 325 mg oral enteric coated tablet 325 mg, By Mouth, Daily, # 30 tablet, Refills 0, Tot. Refills 0, Maintenance, 07/21/21 11:40:00 EST, Route to Pharmacy Electronically, [facility], Partial fill upon patient request if the prescription is for a schedule II opioid drug., 1... Start Date: 07/21/21 Status: Ordered Flonase 50 mcg/inh nasal spray 1 sprays, Nares, Both, 2 times a day, # 16 Gm, 11 Refills, Maintenance, 07/08/20 16:47:00 EST, [place], [facility], 1 [...] Details, Route to Pharmacy Electronically, [facility], 190, cm, 07/27/21 12:49... Start Date: 07/30/21 Status: Ordered hydrOXYzine hydrochloride 25 mg oral tablet 1 tablet, By Mouth, 3 times a day, BUBBLE PACK, # 84 tablet, 5 Refills, Maintenance, 07/30/21 9:02:00 EST, [facility], 190, cm, 07/27/21 12:49:00 EST, Height, 153, kg, 01/14/21 23:22:00 EDT, Dry Weight Start Date: 07/30/21 Status: Ordered insulin lispro 100 u/ml subcutaneous injection 2-10 units, Subcutaneous Injection, 3 times a day before meals, << Sliding Scale Comments >> 150 - 199 2 units Call if less than 70 200 - 249 4 units 250 - 299 6 units 300 - 349 8 units 350 - 399 10 units Call if greater than 400 <<... Start Date: 07/21/21 Status: Ordered Insulin Syringe, BD Ultra-Fine 0.3 [...] 0 Refills, Maintenance, 07/21/21 11:47:00 EST, Solution, [facility], Partial fill upon patient request if [...] Dry Weight Start Date: 06/11/21 Status: Ordered magnesium oxide 400 mg oral tablet 1 tablet = 400 mg, By Mouth, Daily, # 30 tablet, 0 Refills, Maintenance, 07/21/21 11:40:00 EST, Tablet, [facility], Partial fill upon patient request if the prescription is for a schedule II opioid drug., 190, cm, 04/03/21 10:25:00 EDT,... Start Date: 07/21/21 Status: Ordered metFORMIN 1000 mg oral tablet [...] Mouth, 2 times a day, PRN, # 12 tablet, Refills 0, Tot. Refills 0, Acute 08/27/21 14:06:00 EDT, Pain , Severe, 07/30/21 14:05:00 EST, Route to Pharmacy Electronically, [facility], Partial fill upon patient request if t... Start Date: 07/30/21 Stop Date: 08/27/21 Status: Ordered phenytoin 100 mg oral capsule, [...] EDT, Route to Pharmacy Electronically, [facility], 190, cm, 01/23/21 8:35:00 EDT, Height, 153, kg, 01/14/21... Start Date: 04/02/21 Status: Ordered ProAir HFA 90 mcg/inh inhalation aerosol 2 puffs, Inhalation, Every 4 hours, PRN Wheezing/Shortness of Breath, # 1 each, 5 Refills, Maintenance, 06/27/20 16:56:00 EST, [facility], Partial fill upon patient request [...] Non-insulin dependent type 2 diabetes mellitus(Confirmed) Active Vital Signs Most recent to oldest [Reference Range]: 1 Height 190 cm (07/27/21 12:49 PM) Oxygen Saturation [94-100 %] 97 % (07/27/21 12:49 PM) Pulse Rate [55-90 bpm] 72 bpm (07/27/21 12:49 PM) Blood Pressure [90-138/55-84 mm Hg] 117/ 51mm Hg (07/27/21 12:49 PM) Blood pressure sites Arm, left (07/27/21 12:49 PM) Social History Social History Type Response Smoking Status Never entered on: 05/15/18 Sex
--- OUTSIDE RECORDS SUMMARY | 2022-10-04 17:49 | XMS_ITS | Continuity of Care Document ---
Author Name Unknown Organization [facility] Address [address], [address], [address] [place] [id number]- Care Team Providers Care Edge Glue Machine Tender Name Role Phone Tal WILKINS, Brown Paz Primary Care Physician [phone] [place] [facility] [place] 06/29/22 - 07/29/22 [facility] [address], [address] [place] [id number] Attending Physician: Raji Shoemaker Admitting Physician: AdmtrRaji Referring Physician: Admtr, [id number] Allergies, Adverse Reactions, [...] Reason: Med Not Available 2Result Comment: [05/15/2018] 55598-705-11 3Result Comment: [id number] 4Result Comment: [id number] Medications albuterol CFC free 90 mcg/inh inhalation [...] Gm, 11 Refills, Maintenance, 07/08/20 16:47:00 EST, [place], [facility], 1 sprays [...] 04/02/22 5:55:00 EDT, Route to Pharmacy Electronically, [facility], 191, cm, 02/11/22 11:45:00 EDT, Height, 170, kg, 02/05/22 22:35:00 EDT, . Start Date: 04/02/22 Status: Ordered hydrOXYzine hydrochloride 25 mg oral tablet 1 tablet, By Mouth, 3 times a day, # 84 tablet, 5 Refills, Maintenance, 06/11/22 11:15:00 EST, [facility], 191, cm, 02/11/22 11:45:00 EDT, [...] COMMUNICATE SUGARS WITH PCP TO TITRATE LANTUS. [phone], 08/28... Start Date: 08/28/21 Status: Ordered One [...] 360 capsule, 2 Refills, Maintenance, 05/17/22 11:00:00 [facility], [facility], 191, cm, 02/11/22 11:45:00 EDT, [...] 60 tablet, 5 Refills, Maintenance, 07/08/22 10:43:00 [facility], [facility], 191, cm, 02/11/22 11:45:00 EDT, Height, 170, kg, 02/05/22 22:35:00 EDT, Dry Weight Start Date: 07/08/22 Status: Ordered Vitamin D3 2000 intl units oral tablet 1 tablet, By Mouth, Daily, # 28 tablet, 4 Refills, [facility], 191, cm, 08/28/21 11:32:00 EDT, [...] peripheral neuropathy - NOS Confirmed Active 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 Confirmed Active Limited mobility Confirmed Active Severe obesity Confirmed Active Non-insulin dependent type 2 diabetes mellitus Confirmed Active Social History Social History Type Response Smoking Status Never entered on: 05/15/18 Sex Patient Care team information Care Team Personnel Name: Gladis Carrizales RN Position: [facility] RN Member Role: Primary Care Nurse Name: Ebony Santoyo RN Position: [facility] RN Member Role: Primary Care Nurse Name: Siobhan Ko RN Position: [facility] RN Member Role: Primary Care Nurse Name: Evette Marrero Position: [facility] RN Supv Member Role: Primary Care Nurse Name: Aviva Howard RN Position: [facility] RN Member Role: Primary Care Nurse Name: Hilda Doyle RN Position: [facility] RN Supv Member Role: Primary Care Nurse Name: Kimmy Ahumada NP Position: [facility] Associate Professional Member Role: Primary Care Nurse Address: Address: [address] [place] [id number]- Name: Bruce Mccurdy MD Position: [facility] Renal MD Member Role: Lifetime Consulting Physician Address: Address: [address] [place] [address], [address] [facility] [address] Name: Malika Richards RN Position: [facility] Superintendent Maintenance [employer] Member Role: Primary Care Nurse Name: JO GONZALEZ RN Position: [facility] RN Member Role: Primary Care Nurse Name: Shelby Luna RN Position: [facility] RN Member Role: Primary Care Nurse Name: Sarina Camejo RN Position: [facility] RN Member Role: Primary Care Nurse Name: Lachelle Shine RN Position: [facility] RN Member Role: Primary Care Nurse Name: Leilani Lerma RN Position: [facility] Wound Member Role: Primary Care Nurse Name: Sandrita Portillo LPN Position: [facility] RN Member Role: Primary Care Nurse Name: Corina Munoz RN Position: [facility] RN Member Role: Primary Care Nurse Name: Vania Hernandez Position: [facility] RN Member Role: Primary Care Nurse Name: Mukul Dougherty RN Position: [facility] RN Member Role: Primary Care Nurse Name: Hammad Gambino RN Position: [facility] RN Member Role: Primary Care Nurse Name: Kenia Rao RN Position: [facility] RN Member Role: Primary Care Nurse Name: Michele Villavicencio RN Position: S RN Member Role: Primary Care Nurse Name: Brown Parada MD Position: [facility] Primary Care Physician Member Role: PCP Address: Address: [address] [place] [id number]- [place] Name: Charlette Lopez RN Position: [facility] RN Member Role: Primary Care Nurse Name: Elena Sheikh RN Position: [facility] RN Member Role: Primary Care Nurse Name: Theodora Serna RN Position: [facility] PCO RN Member Role: Primary Care Nurse Name: Yang Silva RN Position: [facility] RN Member Role: Primary Care Nurse Name: Xiomara Mario RN Position: [facility] RN Member Role: Primary Care Nurse Name: Meg Norman RN Position: [facility] RN Member Role: Primary Care Nurse Name: Latanya Garza RN Position: [facility] RN Member Role: Primary Care Nurse Name: Jaimie Gibson RN Position: [facility] RN Member Role: Primary Care Nurse Name: Carmen Bruner RN Position: [facility] RN Member Role: Primary Care Nurse Name: Kirill Mccartney RN Position: [facility] RN Member Role: Primary Care Nurse Name: Chacha Hassan RN Position: [facility] RN Member Role: Primary Care Nurse Name: Earlene Grayson RN Position: [facility] SN RN Member Role: Primary Care Nurse Name: Cem Carroll MD Position: [facility] Renal MD Member Role: Lifetime Consulting Physician Address: Address: [address] [place] [address] [facility] [place] [address]- [place] Name: Euesbia Hassan RN Position: [facility] RN Member Role: Primary Care Nurse Care Team Related Persons Name: JIMENEZ BRUNER Address: [address] [place] [address] Name: LIZAANYA Address: [address] [place] [address]
--- OUTSIDE RECORDS SUMMARY | 2022-10-04 17:49 | XMS_ITS | Continuity of Care Document ---
Author Name Unknown Organization [facility] Address [address], [address] Floor, [address] [place] [address]- Care Team Providers Care Assistant Manager Of Operations Name Role Phone Tal WILKINS, Brown Paz Primary Care Physician Encounter [facility] Date(s): 05/17/22 - 07/29/22 [facility] [address], [address], [address] [place], [place] [address] Attending Physician: Buck Ba MD Admitting Physician: Buck Ba MD Allergies, Adverse Reactions, Alerts Substance Reaction [...] Reason: Med Not Available 2Result Comment: [05/15/2018] 51975-654-62 3Result Comment: [id number] 4Result Comment: [id number] Medications albuterol CFC free 90 mcg/inh inhalation [...] Gm, 11 Refills, Maintenance, 07/08/20 16:47:00 EST, [place], [facility], 1 sprays [...] 04/02/22 5:55:00 EDT, Route to Pharmacy Electronically, [facility], 191, cm, 02/11/22 11:45:00 EDT, Height, 170, kg, 02/05/22 22:35:00 EDT, . Start Date: 04/02/22 Status: Ordered hydrOXYzine hydrochloride 25 mg oral tablet 1 tablet, By Mouth, 3 times a day, # 84 tablet, 5 Refills, Maintenance, 06/11/22 11:15:00 EST, [facility], 191, cm, 02/11/22 11:45:00 EDT, [...] COMMUNICATE SUGARS WITH PCP TO TITRATE LANTUS. [phone], 08/28... Start Date: 08/28/21 Status: Ordered One [...] capsule, 2 Refills, Maintenance, 05/17/22 11:00:00 EST, 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 Confirmed Active Limited mobility Confirmed Active Severe obesity Confirmed Active Non-insulin dependent type 2 diabetes mellitus Confirmed Active Social History Social History Type Response Smoking Status Never entered on: 05/15/18 Sex Patient Care team information Care Team Personnel Name: Gladis Carrizales RN Position: [facility] RN Member Role: Primary Care Nurse Name: Ebony Santoyo RN Position: [facility] RN Member Role: Primary Care Nurse Name: Siobhan Ko RN Position: [facility] RN Member Role: Primary Care Nurse Name: Evette Marrero Position: [facility] RN Supv Member Role: Primary Care Nurse Name: Aviva Howard RN Position: [facility] RN Member Role: Primary Care Nurse Name: Hilda Doyle RN Position: [facility] RN Supv Member Role: Primary Care Nurse Name: Kimmy Ahumada NP Position: [facility] Associate Professional Member Role: Primary Care Nurse Address: Address: [address] [place] [id number] Name: Bruce Mccurdy MD Position: [facility] Renal MD Member Role: Lifetime Consulting Physician Address: Address: [address] [place] [address], [address] [facility] [place], [place] [address] Name: Malika Richards RN Position: [facility] Yard Engineer Member Role: Primary Care Nurse Name: JO GONZALEZ RN Position: [facility] RN Member Role: Primary Care Nurse Name: Shelby Luna RN Position: [facility] RN Member Role: Primary Care Nurse Name: Sarina Camejo RN Position: [facility] RN Member Role: Primary Care Nurse Name: Lachelle Shine RN Position: [facility] RN Member Role: Primary Care Nurse Name: Leilani Lerma RN Position: [facility] HBO Wound Member Role: Primary Care Nurse Name: Sandrita Portillo LPN Position: [facility] RN Member Role: Primary Care Nurse Name: Corina Munoz RN Position: [facility] RN Member Role: Primary Care Nurse Name: Vania Hernandez Position: [facility] RN Member Role: Primary Care Nurse Name: Mukul Dougherty RN Position: [facility] RN Member Role: Primary Care Nurse Name: Hammad Gambino RN Position: [facility] RN Member Role: Primary Care Nurse Name: Kenia Rao RN Position: [facility] RN Member Role: Primary Care Nurse Name: Michele Villavicencio RN Position: [facility] RN Member Role: Primary Care Nurse Name: Brown Parada MD Position: [facility] Primary Care Physician Member Role: PCP Address: Address: [address] [place] [address]- [place] Name: Charlette Lopez RN Position: [facility] RN Member Role: Primary Care Nurse Name: Elena Sheikh RN Position: [facility] RN Member Role: Primary Care Nurse Name: Theodora Serna RN Position: [facility] PCO RN Member Role: Primary Care Nurse Name: Yang Silva RN Position: [facility] RN Member Role: Primary Care Nurse Name: Xiomara Mario RN Position: [facility] RN Member Role: Primary Care Nurse Name: Meg Norman RN Position: [facility] RN Member Role: Primary Care Nurse Name: Latanya Garza RN Position: [facility] RN Member Role: Primary Care Nurse Name: Jaimie Gibson RN Position: [facility] RN Member Role: Primary Care Nurse Name: Carmen Bruner RN Position: [facility] RN Member Role: Primary Care Nurse Name: Kirill Mccartney RN Position: [facility] RN Member Role: Primary Care Nurse Name: Chacha Hassan RN Position: [facility] RN Member Role: Primary Care Nurse Name: Earlene Grayson RN Position: [facility] SN RN Member Role: Primary Care Nurse Name: Cem Carroll MD Position: [facility] Renal MD Member Role: Lifetime Consulting Physician Address: Address: [address] [place] [address] [facility] [place] [address]- [place] Name: Eusebia Hassan RN Position: [facility] RN Member Role: Primary Care Nurse Care Team Related Persons Name: JIMENEZ BRUNER Address: home [address] [place] [address] Name: ANYA DE JESUS Address: home [address] [place] [address]
--- OUTSIDE RECORDS SUMMARY | 2022-10-04 17:49 | XMS_ITS | Continuity of Care Document ---
Author Name Unknown Organization [facility] Aung lt Address [address] [place] [address]- Care Team Providers Care Manager Unit Name Role Phone Tal WILKINS, Brown Paz Primary Care Physician Encounter [facility] Date(s): 02/02/22 - 02/09/22 [facility] Adult [address] [place] [address]- Encounter Diagnosis Hyperglycemia(Discharge Diagnosis) - 02/02/22 Multiple complaints(Discharge Diagnosis) - 02/02/22 Attending Physician: Halima FROST, Mari Allergies, Adverse Reactions, Alerts Substance Reaction Severity [...] 03/07/14 Francesco rded tetanus-diphtheria toxoids (Td) 3 2/12/20 Given tetanus-diphtheria toxoids (Td) 02/02/12 Recorded pneumococcal 23-valent vaccine 4 07/18/19 Given pneumococcal 23-valent vaccine 03/07/14 Recorded tetanus/diphtheria/pertussis, acel(Tdap) 05/07/09 Given 1Early/Late Reason: Early/Late Reason: Med Not Available 2Result Comment: [05/15/2018] [id number] 3Result Comment: [id number] 4Result Comment: [id number] Medications apixaban 5 mg oral tablet 1 [...] Gm, 11 Refills, Maintenance, 07/08/20 16:47:00 EST, [place], [facility], 1 sprays [...] 0 Refills, Maintenance, 07/21/21 11:47:00 EST, Solution, [facility], Partial fill upon patient request [...] Refills, Maintenance, 02/05/22 11:34:00 EDT, [facility], 191, cm, 02/02/22 15:50:00 EDT, Height, 168.5, kg, 08/18/21 22:23:00 EDT, Dry Weight Start Date: 02/05/22 Status: Ordered LORazepam 2 mg oral tablet 1 tablet = 2 mg, By Mouth, 3 times a day, PRN for anxiety, # 90 tablet, 2 Refills, Maintenance, 06/11/21 16:39:00 EST, Tablet, [facility], 190, cm, 04/03/21 10:25:00 EDT, [...] COMMUNICATE SUGARS WITH PCP TO TITRATE LANTUS. [phone], 08/28... Start Date: 08/28/21 Status: Ordered One [...] EDT, DChelsey.. Start Date: 02/23/21 Status: Ordered SEROquel 100 [...] with preserved left ventricular function (HFpEF)(Confirmed) Active Hyperglycemia(Confirmed) Active Hyperlipidemia(Confirmed) Active Hypertension(Confirmed) Active Iron deficiency anemia(Confirmed) Active Mood disorder NOS(Confirmed) Active Multiple complaints(Confirmed) Active Obstructive sleep apnea(Confirmed) Active Paroxysmal A-fib(Confirmed) Active Pericarditis(Confirmed) Active Painful peripheral neuropath y - NOS(Confirmed) Active [facility]PC prescription benzo diazepine use(Confirmed) Active Limited mobility(Confirmed) Active Severe obesity(Confirmed) Active Non-insulin dependent type 2 diabetes mellitus(Confirmed) Active Diagnosis Diagnosis Type Effective Dates Health Status Clinical Service Informant Hyperglycemia Discharge Diagnosis 02/02/22 Multiple complaints Discharge Diagnosis 02/02/22 Vital Signs Most recent to oldest [Reference Range]: 1 Height 191 cm (02/02/22 3:50 PM) Social History Social History Type Response Smoking Status Never entered on: 05/15/18 Sex Care Team Personnel Name: Brown Parada MD Address: [address] [place] [id number]
--- OUTSIDE RECORDS SUMMARY | 2022-10-04 17:49 | XMS_ITS | Continuity of Care Document ---
Author Name Unknown Organization [facility] Aung lt Address [address] [place] [address]- Care Team Providers Care Melangeur Operator Name Role Phone Matheus Yo MD Primary Care Physician [phone] [place] [facility] Date(s): 01/23/21 - 01/30/21 [facility] Adult [address] [place] [address]- Encounter Diagnosis Pericardial effusion(Discharge Diagnosis) - 01/23/21 Epilepsy(Discharge Diagnosis) - 01/23/21 Mood disorder NOS(Discharge Diagnosis) - 01/23/21 Attending Physician: Matheus Yo MD Allergies, Adverse [...] kyle tetanus/diphtheria/pertussis, acel(Tdap) 05/07/09 Given 1Result Comment: [id number] 2Result Comment: [id number] 3Result Comment: [05/15/2018] 59972-923-09 Medications acetaminophen 325 mg oral tablet 650 mg, By Mouth, Every 4 hours, PRN, Refills 0, Maintenance, Pain , Mild, 12/12/19 13:05:00 EDT Start Date: 12/12/19 Status: Ordered apixaban 5 mg oral tablet 1 tablet = 5 mg, By Mouth, 2 times a day, # 60 tablet, 3 Refills, Maintenance, 01/13/21 15:09:00 EDT, Tablet, [facility], Partial fill upon patient request if [...] Refills, Maintenance, 01/13/21 15:09:00 EDT, CR Capsule, [facility] 3, Partial fill upon patient request if the prescription is for a schedule II opioid drug., 190, cm, 01/13/21 7:49:00... Start Date: 01/13/21 Stop Date: 03/14/21 Status: Ordered colchicine 0.6 mg oral tablet 0.6 mg, 1, tablet, By Mouth, 2 times a day, # 60 tablet, Refills 1, Tot. Refills 1, Maintenance, 01/13/21 15:09:00 EDT, Route to Pharmacy Electronically, [facility] 3, Partial fill upon patient request [...] 01/13/21 15:09:00 EDT, Route to Pharmacy Electronically, [facility], Partial fill upon patient request if [...] 01/18/21 11:37:00 EDT, Route to Pharmacy Electronically, [facility], Partial fill upon patient request if the prescription is for a errol... Start Date: 01/18/21 Status: Ordered Flonase 50 mcg/inh nasal spray 1 sprays, Nares, Both, 2 times a day, # 16 Gm, 11 Refills, Maintenance, 07/08/20 16:47:00 EST, [place], [facility], 1 sprays [...] Refills 0, Tot. Refills 0, Maintenance, dx: [id number]. 40, oxygen dependence Z99.81, 01/27/21 11:50:00 EDT, [...] 01/18/21 11:37:00 EDT, Route to Pharmacy Electronically, [facility], Partial fill upon patient request if [...] 1 Refills, Soft Stop, 01/13/21 15:30:00 EDT, [facility], 190, cm, 01/13/21 7:49:00 EDT, Height, [...] Refills, Maintenance, 01/23/21 11:11:00 EDT, [facility], 190, cm, 01/23/21 8:35:00 EDT, Height, 153, kg, 01/14/21 23:22:00 EDT, Dry Weight Start Date: 01/23/21 Status: Ordered torsemide 20 mg oral tablet 2 tablet = 40 mg, By Mouth, Daily, # 60 tablet, 1 Refills, Maintenance, 01/13/21 15:10:00 EDT, Tablet, [facility], Partial fill upon [...] peripheral neuropath y - NOS(Confirmed) Active 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
--- OUTSIDE RECORDS SUMMARY | 2022-10-04 17:49 | XMS_ITS | Continuity of Care Document ---
Author Name Unknown Organization [facility] Address [address] [place] [address]- Care Team Providers Care Polyethylene Bag Machine Operator Name Role Phone Sanaz WILKINS, Matheus Castro Primary Care Physician Encounter [facility] Date(s): 06/20/20 - 07/20/20 [facility] Adult [address] [place] [address]- Allergies, Adverse Reactions, Alerts Substance Reaction Severity [...] kyle tetanus/diphtheria/pertussis, acel(Tdap) 05/07/09 Given 1Result Comment: [id number] 2Result Comment: [id number] 3Result Comment: [05/15/2018] 33733-604-03 Medications acetaminophen 325 mg oral tablet 650 mg, By Mouth, Every 4 hours, PRN, Refills 0, Maintenance, Pain , Mild, 12/12/19 13:05:00 EDT Start Date: 12/12/19 Status: Ordered albuterol CFC free 90 mcg/inh inhalation aerosol 2, puffs, Inhalation, Every 4 hours, PRN, # 18 Gm, Refills 5, Tot. Refills 5, Maintenance, 06/24/2115:37:00 EST, Aerosol, Route to Pharmacy Electronically, [id number], [facility], 191, giovani, 06/24/20 [...] 05/07/20 10:14:00 EST, Route to Pharmacy Electronically, [facility], 191, cm, 12/27/19 [...] EDT, Route to Pharmacy Electronically, [facility], 191, cm, 07/23/2013:30:00 EST, Height, 193.5, kg, 05/21/19 5:38:00 EST,... Start Date: 12/12/19 Status: Ordered Flonase 50 mcg/inh nasal spray 1 sprays, Nares, Both, 2 times a day, # 16 Gm, 11 Refills, Maintenance, 07/08/20 16:47:00 EST, [place], [facility], 1 sprays Nares, Both 2 times a day, 191, cm, 06/24/20 13:40:00 EST, Height, 193.5, kg, 05/21/19 5:38:00 EST, Dry Weight Start Date: 07/08/20 Status: Ordered gabapentin 300 mg oral capsule 300 mg, 1, capsule, By Mouth, 3 times a day, # 90 capsule, Refills 11, Tot. Refills 11, Maintenance, 04/28/20 13:15:00 EST, Route to Pharmacy Electronically, [facility], 191, cm, 12/27/19 12:20:00 EDT, Height, 193.5, kg, 05/21/19 5:38:00... Start Date: 04/28/20 Stop Date: 04/23/21 Status: Ordered hydrOXYzine hydrochloride 25 mg oral tablet 1 tablet = 25 mg, By Mouth, 3 times a day, # 90 tablet, 11 Refills, Maintenance, 04/09/20 16:46:00 EST, Tablet, [facility], 191, cm, 12/27/19 12:20:00 EDT, [...] EDT, Route to Pharmacy Electronically, [facility], 191, cm, 12/27/2011:20:00 EDT, Height, [...] Maintenance, 04/28/20 13:18:00 EST, Tablet, [facility], [...] Start Date: 05/07/20 Status: Ordered nystatin topical 088109 u/gm powder See Instructions, Topically 2 times a day, # 60 Gm, 5 Refills, Maintenance, 02/19/20 15:59:00 EDT, Pow[place], [facility], Topically 2 times a day, 191, cm, 12/27/19 12:20:00 EDT, Height, 193.5, kg, 05/21/19 5:38:00 EST, Dry Weight Start Date: 02/19/20 Status: Ordered phenytoin 100 mg oral capsule, extended release See Instructions, TAKE 2 CAPSULES BY MOUTH IN THE MORNING & TAKE 4 CAPSULES IN THE EVENING.., #180 Unknown, 3 Refills, Maintenance, [facility], 191, cm, 06/24/20 13:40:00 EST, Height, 193.5, kg, 05/21/19 5:38:00 EST, Dry Weight Start Date: 07/08/20 Status: Ordered prazosin 5 mg oral capsule 5 mg, 1, capsule, By Mouth, Daily at bedtime, # 30 capsule, Refills 5, Tot. Refills 5, Maintenance,07/19/19 15:02:00 EST, Route to Pharmacy Electronically, [facility], 191, cm, 07/18/19 14:17:00 EST, [...] Maintenance, 04/25/20 14:23:00 EST, Tablet, [facility], 191, cm, 12/27/19 12:20:00 EDT, Height, 193.5, kg, 05/21/19 5:38:00EST, Dry Weight Start Date: 04/25/20 Status: Ordered spironolactone 25 mg oral tablet 25 mg, 1, tablet, By Mouth, Daily, # 30 tablet, Refills 5, Tot. Refills 5, Maintenance, 02/19/20 9:52:00 EDT, Route to Pharmacy Electronically, [facility], 191, cm, 12/27/19 12:20:00EDT, Height, 193.5, kg, 05/21/19 5:38:00 EST, Dry Weight Start Date: 02/19/20 Status: Ordered traZODone 50 mg oral tablet 100 mg, 2, tablet, By Mouth, Daily at bedtime, # 60 tablet, Refills 5, Tot. Refills 5, Maintenance,06/23/20 11:13:00 EST, Route to Pharmacy Electronically, [facility], 191, cm, 12/27/19 [...]
--- OUTSIDE RECORDS SUMMARY | 2022-10-04 17:49 | XMS_ITS | Continuity of Care Document ---
Author Name Unknown Organization [facility] Anug lt Address [address] [place] [address]- Care Team Providers Care Chart Computer Name Role Phone Tal WILKINS, Brown Paz Primary Care Physician Encounter [facility] Date(s): 12/23/21 - 01/22/22 [facility] Adult [address] [place] [address]- Allergies, Adverse Reactions, Alerts Substance Reaction Severity [...] Reason: Med Not Available 2Result Comment: [05/15/2018] [id number] 3Result Comment: [id number] 4Result Comment: [id number] Medications acetaminophen 325 mg oral tablet 650 [...] Gm, 11 Refills, Maintenance, 07/08/20 16:47:00 EST, [place], [facility], 1 sprays [...] EDT, Route to Pharmacy Electronically, [facility], Partial fill upon patient request... Start Date: 12/11/21 Status: Ordered hydrOXYzine hydrochloride 25 mg oral tablet 1 tablet, By Mouth, 3 times a day, # 84 tablet, 5 Refills, [facility], 191, cm, 12/10/21 10:57:00 EDT, [...] 0 Refills, Maintenance, 07/21/21 11:47:00 EST, Solution, [facility], Partial fill upon patient request [...] COMMUNICATE SUGARS WITH PCP TO TITRATE LANTUS. [phone], 08/28... Start Date: 08/28/21 Status: Ordered One [...] 168 capsule, 5 Refills, 09/15/21 5:56:00 EDT, [facility], 191, cm, 08/28/21 11:32:00 EDT, Height, 168.5, kg, 08/18/21 22:23:00 EDT... Start Date: 09/15/21 Status: Ordered prazosin 5 mg oral capsule 5 mg, 1, capsule, By Mouth, Daily at bedtime, BUBBLE PACK, # 28 capsule, Refills 4, Tot. Refills 4,Maintenance, 04/02/21 8:22:00 EDT, Route to Pharmacy Electronically, [facility], 190, cm, 01/23/21 8:35:00 EDT, Height, 153, kg, 01/14/21... Start Date: 04/02/21 Status: Ordered ProAir HFA 90 mcg/inh inhalation aerosol 2 puffs, Inhalation, Every 4 hours, PRN Wheezing/Shortness of Breath, # 1 each, 5 Refills, Maintenance, 06/27/20 16:56:00 EST, [facility], Partial fill upon patient request [...]
--- OUTSIDE RECORDS SUMMARY | 2022-10-04 17:49 | XMS_ITS | Continuity of Care Document ---
Author Name Unknown Organization [facility] [place] Aung lt Address [address] [place] [address]- Care Team Providers Care Plate Maker Name Role Phone Tal WILKINS, Brown Paz Primary Care Physician Encounter [facility] [place] Date(s): 06/28/22 - 07/28/22 [facility] Adult [address] [place] [address]- Allergies, Adverse Reactions, Alerts Substance Reaction Severity [...] Reason: Med Not Available 2Result Comment: [05/15/2018] 01966-034-27 3Result Comment: [id number] 4Result Comment: [id number] Medications albuterol CFC free 90 mcg/inh inhalation [...] Gm, 11 Refills, Maintenance, 07/08/20 16:47:00 EST, [place], [facility], 1 sprays [...] 04/02/22 5:55:00 EDT, Route to Pharmacy Electronically, [facility], 191, cm, 02/11/22 11:45:00 EDT, Height, 170, kg, 02/05/22 22:35:00 EDT, . Start Date: 04/02/22 Status: Ordered hydrOXYzine hydrochloride 25 mg oral tablet 1 tablet, By Mouth, 3 times a day, # 84 tablet, 5 Refills, Maintenance, 06/11/22 11:15:00 EST, [facility], 191, cm, 02/11/22 11:45:00 EDT, [...] COMMUNICATE SUGARS WITH PCP TO TITRATE LANTUS. [phone], 08/28... Start Date: 08/28/21 Status: Ordered One [...] capsule, 2 Refills, Maintenance, 05/17/22 11:00:00 EST, [facility], 191, cm, 02/11/22 11:45:00 EDT, [...] tablet, 5 Refills, Maintenance, 07/08/22 10:43:00 EST, [facility], 191, cm, 02/11/22 11:45:00 EDT, Height, 170, kg, 02/05/22 22:35:00 EDT, Dry Weight Start Date: 07/08/22 Status: Ordered Vitamin D3 2000 intl units oral tablet 1 tablet, By Mouth, Daily, # 28 tablet, 4 Refills, [facility], 191, cm, 08/28/21 11:32:00 EDT, [...] Painful peripheral neuropathy - NOS Confirmed Active jail prescription benzodiazepine use Confirmed Active Limited mobility Confirmed Active Severe obesity Confirmed Active Non-insulin dependent type 2 diabetes mellitus Confirmed Active Social History Social History Type Response Smoking Status Never entered on: 05/15/18 Sex Patient Care team information Care Team Personnel Name: All BOSS Gladis Loyolamagdaleno Position: [facility] RN Member Role: Primary Care Nurse Name: Ebony Santoyo RN Position: [facility] RN Member Role: Primary Care Nurse Name: Siobhan Ko RN Position: [facility] RN Member Role: Primary Care Nurse Name: Evette Marrero Position: [facility] RN Supv Member Role: Primary Care Nurse Name: Aviva Howard RN Position: [facility] RN Member Role: Primary Care Nurse Name: Hilda Doyle RN Position: [facility] RN Supv Member Role: Primary Care Nurse Name: Kimmy Ahumada NP Position: [facility] Associate Professional Member Role: Primary Care Nurse Address: Address: [address] [place] [address] Name: Bruce Mccurdy MD Position: [facility] Renal MD Member Role: Lifetime Consulting Physician Address: Address: [address] [place] [address], [address] [facility] [place], [place] [address] Name: Malika Richards RN Position: [facility] [employer] Factory Worker Member Role: Primary Care Nurse Name: JO GONZALEZ RN Position: [facility] RN Member Role: Primary Care Nurse Name: Shelby Luna RN Position: [facility] RN Member Role: Primary Care Nurse Name: Sarina Camejo RN Position: [facility] RN Member Role: Primary Care Nurse Name: Lachelle Shine RN Position: [facility] RN Member Role: Primary Care Nurse Name: Leilani Lerma RN Position: [facility] HBO Wound Member Role: Primary Care Nurse Name: Sandrita Portillo LPN Position: [facility] RN Member Role: Primary Care Nurse Name: Corina Munoz RN Position: [facility] RN Member Role: Primary Care Nurse Name: Vania Hernandez Position: [facility] RN Member Role: Primary Care Nurse Name: Mukul Dougherty RN Position: [facility] RN Member Role: Primary Care Nurse Name: Hammad Gambino RN Position: [facility] RN Member Role: Primary Care Nurse Name: Kenia Rao RN Position: [facility] RN Member Role: Primary Care Nurse Name: Michele Villavicencio RN Position: [facility] RN Member Role: Primary Care Nurse Name: Brown Parada MD Position: [facility] Primary Care Physician Member Role: PCP Address: Address: [address] [place] [address]- [place] Name: Charlette Lopez RN Position: [facility] RN Member Role: Primary Care Nurse Name: Elena Sheikh RN Position: [facility] RN Member Role: Primary Care Nurse Name: Theodora Serna RN Position: [facility] PCO RN Member Role: Primary Care Nurse Name: Yang Silva RN Position: [facility] RN Member Role: Primary Care Nurse Name: Xiomara Mario RN Position: [facility] RN Member Role: Primary Care Nurse Name: Meg Norman RN Position: [facility] RN Member Role: Primary Care Nurse Name: Latanya Garza RN Position: [facility] RN Member Role: Primary Care Nurse Name: Jaimie Gibson RN Position: [facility] RN Member Role: Primary Care Nurse Name: Carmen Bruner RN Position: [facility] RN Member Role: Primary Care Nurse Name: Kirill Mccartney RN Position: [facility] RN Member Role: Primary Care Nurse Name: Chacha Hassan RN Position: [facility] RN Member Role: Primary Care Nurse Name: Earlene Grayson RN Position: [facility] SN RN Member Role: Primary Care Nurse Name: Cem Carroll MD Position: [facility] Renal MD Member Role: Lifetime Consulting Physician Address: Address: [address] [place] [address] [facility] [place] [address]- [place] Name: Eusebia Hassan RN Position: [facility] RN Member Role: Primary Care Nurse Care Team Related Persons Name: JIMENEZ BRUNER Address: [address] [place] [address] Name: ANYA D EJESUS Address: [address] [place] [address]
--- OUTSIDE RECORDS SUMMARY | 2022-10-04 17:49 | XMS_ITS | Continuity of Care Document ---
Author Name Unknown Organization [facility] [place] [facility] Address [address] [place] [address]- Care Team Providers Care Candy Packer Name Role Phone Sanaz WILKINS, Matheus Castro Primary Care Physician Encounter [facility] [place] Date(s): 10/16/19 - 10/23/19 [facility] Adult [address] [place] [address]- [facility] Encounter Diagnosis Mood disorder NOS(Discharge Diagnosis) - 10/16/19 Obstructive sleep apnea(Discharge Diagnosis) - 10/16/19 Chronic widespread pain disorder(Discharge Diagnosis) - 10/16/19 Attending Physician: Artie FIREWALL SECURITY ENGINEER, Carmel Johnson Allergies, Adverse Reactions, Alerts Substance [...] kyle tetanus/diphtheria/pertussis, acel(Tdap) 05/07/09 Given 1Result Comment: [id number] 2Result Comment: [id number] 3Result Comment: [05/15/2018] 12543-808-63 Medications atorvastatin 20 mg oral tablet 1 tablet = 20 mg, By Mouth, Daily, # 90 tablet, 3 Refills, Soft Stop, 03/14/19 13:58:57 EDT Start Date: 03/14/19 Status: Ordered clopidogrel 75 mg oral tablet 75 mg, 1, tablet, By Mouth, Daily, # 30 tablet, Refills 5, Tot. Refills 5, Maintenance, 01/29/19 17:13:14 EDT, Route to Pharmacy Electronically, [id number], [facility] Start Date: [...] Gm, 0 Refills, Maintenance, 05/23/18 10:06:41 EST, [place], 1 sprays Nares, Both 2 times a [...] Maintenance, 07/18/2014:03:00 EST, Route to Pharmacy Electronically, [facility][id number], 191, cm, 07/18/19 14:17:00 EST, Height, 193.5, [...] EST, Route to Pharmacy Electronically, [facility], 191, cm, 07/23/19 14:30:00 EST, [...] TAKE 1 TABLET BY MOUTH EVERY MORNING, [id number] Start Date: 01/02/19 Status: Ordered LORazepam 2 mg oral tablet 1 tablet = 2 mg, By Mouth, 3 times a day, PRN for anxiety, # 90 tablet, 2 Refills, Maintenance, 10/03/19 11:11:00 EDT, Tablet, [facility], 191, cm, 07/23/19 14:30:00 EST, [...] Start Date: 08/06/19 Status: Ordered nystatin topical 490912 u/gm powder See Instructions, Topically 2 times [...] capsule, 3 Refills, Maintenance, 10/19/19 10:01:00 EDT, [facility], changed to 100mg due to being out of 200, 191, cm, 07/23/19 14:30:00 EST, Height, 193.5, kg, 1... Start Date: 10/19/19 Status: Ordered prazosin 5 mg oral capsule 5 mg, 1, capsule, By Mouth, Daily at bedtime, # 30 capsule, Refills 5, Tot. Refills 5, Maintenance,07/19/19 15:02:00 EST, Route to Pharmacy Electronically, [facility], 191, cm, 07/18/19 14:17:00 EST, [...] 0 Refills, Maintenance, 10/03/19 15:22:00 EDT, Tablet, [facility], 191, cm, 07/23/19 14:30:00 EST, Height, 193.5, kg, 05/21/19 5:38:00 EST, Dry Weight Start Date: 10/03/19 Status: Ordered QUEtiapine 25 mg oral tablet 50 mg, 2, tablet, By Mouth, Daily at bedtime, # 60 tablet, Refills 1, Tot. Refills 1, Maintenance, 10/16/19 16:26:00 EDT, Route to Pharmacy Electronically, [facility], 191, cm, 07/23/19 14:30:00 EST, [...] 12/28/18 15:03:05 EDT, Route to Pharmacy Electronically, [id number], [id number] Start Date: 12/28/18 Status: Ordered traZODone 50 mg oral tablet 1-2 tablets, By Mouth, Daily at bedtime, PRN, Insomnia Start Date: 06/01/18 Status: Ordered traZODone 50 mg oral tablet 100 mg, 2, tablet, By Mouth, Daily at bedtime, # 60 tablet, Refills 5, Tot. 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
--- OUTSIDE RECORDS SUMMARY | 2022-10-04 17:49 | XMS_ITS | Continuity of Care Document ---
Author Name Unknown Organization [facility] Eddie Aung Address [address] [place] [address]- Care Team Providers Care Multifocal Button Inspector Name Role Phone Sanaz WILKINS, Matheus Castro Primary Care Physician Encounter [facility] Date(s): 04/17/20 - 05/17/20 [facility] Adult [address] [place] [address]- Allergies, Adverse Reactions, Alerts Substance Reaction Severity [...] kyle tetanus/diphtheria/pertussis, acel(Tdap) 05/07/09 Given 1Result Comment: [id number] 2Result Comment: [id number] 3Result Comment: [05/15/2018] 12271-905-59 Medications acetaminophen 325 mg oral tablet 650 [...] 05/07/20 10:14:00 EST, Route to Pharmacy Electronically, [facility], 191, cm, 12/27/19 12:20:00 EDT, Height, 193.5, kg, 05/21/19 5:38:00 EST, Dry Weight Start Date: 05/07/20 Stop Date: 11/03/20 Status: Ordered cyanocobalamin 1000 mcg oral tablet, extended release 1 tablet = 1,000 mcg, By Mouth, Daily, # 30 tablet, 11 Refills, Maintenance, 02/21/20 10:38:00 EDT,[facility], 191, cm, 12/27/19 12:20:00 EDT, [...] 12/12/19 13:24:00 EDT, Route to Pharmacy Electronically, [facility], 191, cm, 07/23/2013:30:00 EST, Height, 193.5, kg, 05/21/19 5:38:00 EST,... Start Date: 12/12/19 Status: Ordered Flonase 50 mcg/inh nasal spray 1 sprays, Nares, Both, 2 times a day, # 16 Gm, 0 Refills, Maintenance, 05/23/18 10:06:41 EST, [place], 1 sprays Nares, Both 2 times a [...] EDT, Route to Pharmacy Electronically, [facility], 191, cm, 12/27/19 12:20:00 EDT, [...] 0 Refills, Maintenance, 02/22/20 13:44:00 EDT, Tablet, [facility], 191, cm, 12/27/19 12:20:00 EDT, Height, 193.5,kg, 05/21/19 5:38:00 EST, Dry Weight Start Date: 02/22/20 Status: Ordered loperamide 2 mg oral tablet 1 tablet = 2 mg, By Mouth, Every 4 hours, PRN as needed for loose stool, not to exceed 16 mg/day, #100 tablet, 0 Refills, Maintenance, 04/28/20 13:13:00 EST, Tablet, [facility], Partial fill upon patient request, 191, cm, 12/27/19 12:20:... Start Date: 04/28/20 Status: Ordered LORazepam 2 mg oral tablet 1 tablet = 2 mg, By Mouth, 3 times a day, PRN for anxiety, # 90 tablet, 2 Refills, Maintenance, 04/28/20 13:18:00 EST, Tablet, [facility], 191, cm, 12/27/19 12:20:00 EDT, [...] Start Date: 05/07/20 Status: Ordered nystatin topical 299829 u/gm powder See Instructions, Topically 2 times [...] 02/19/20 9:52:00 EDT, Route to Pharmacy Electronically, [facility], 191, cm, 12/27/19 12:20:00EDT, Height, 193.5, kg, 05/21/19 5:38:00 EST, Dry Weight Start Date: 02/19/20 Status: Ordered traZODone 50 mg oral tablet 100 mg, 2, tablet, By Mouth, Daily at bedtime, # 60 tablet, Refills 5, Tot. Refills 5, Maintenance,02/01/20 10:29:00 EDT, Route to Pharmacy Electronically, [facility], 191, cm, 12/27/19 12:20:00 EDT, Height, 193.5, kg, 05/21/19 5:38:00 E... Start Date: 02/01/20 Status: Ordered Vitamin D3 2000 intl units oral tablet 1 tablet = 2,000 International_Units, By Mouth, Daily, # 90 tablet, 1 Refills, Maintenance, 02/20/20 14:34:00 EDT, [facility], 191, cm, 12/27/19 12:20:00 EDT, [...]
--- OUTSIDE RECORDS SUMMARY | 2022-10-04 17:49 | XMS_ITS | Continuity of Care Document ---
Author Name Unknown Organization [facility] Aung Address [address] [place] [address]- Care Team Providers Care Diamond Die Maker Name Role Phone Tal WILKINS, Brown Paz Primary Care Physician Encounter [facility] [place] Date(s): 07/26/22 - 08/25/22 [facility] Adult [address] [place] [address]- Allergies, Adverse Reactions, Alerts Substance Reaction Severity [...] Reason: Med Not Available 2Result Comment: [05/15/2018] 76149-028-70 3Result Comment: [id number] 4Result Comment: [id number] Medications albuterol CFC free 90 mcg/inh inhalation [...] Gm, 11 Refills, Maintenance, 07/08/20 16:47:00 EST, [place], [facility], 1 sprays [...] tablet, 1 Refills, Maintenance, 03/09/22 9:51:00 EDT, [facility], 191, cm, 02/11/22 11:45:00 EDT, Height, 170, kg, 02/05/22 22:35:00 EDT, Dry Weight Start Date: 03/09/22 Status: Ordered LORazepam 2 mg oral tablet 1 tablet = 2 mg, By Mouth, 3 times a day, PRN for anxiety, # 90 tablet, 2 Refills, Maintenance, 06/11/21 16:39:00 EST, Tablet, [facility], 190, cm, 04/03/21 10:25:00 EDT, Height, 153, kg, 01/14/21 23:22:00 EDT, Dry Weight Start Date: 06/11/21 Status: Ordered metFORMIN 1000 mg oral tablet 1 tablet = 1,000 mg, By Mouth, Daily, # 90 tablet, 1 Refills, Maintenance, 03/15/22 18:36:00 EDT, [facility], 191, cm, 02/11/22 11:45:00 EDT, Height, 170, kg, 02/05/22 22:35:00 EDT, Dry Weight Start Date: 03/15/22 Status: Ordered Metoprolol Succinate ER 50 mg oral tablet, extended release 1 tablet, By Mouth, Daily, # 90 tablet, 1 Refills, Maintenance, 07/23/22 4:11:00 EST, [facility], 191, cm, 02/11/22 11:45:00 EDT, Height, 170, kg, 02/05/22 22:35:00 EDT, Dry Weight Start Date: 07/23/22 Status: Ordered Narcan 4 mg/0.1 mL nasal spray = 4 mg, Naris, Left, Once, PRN overdose, # 2 each, 0 Refills, Soft Stop, 09/24/21 18:09:00 EDT, [facility], Partial fill upon patient request [...] 360 capsule, 2 Refills, Maintenance, 05/17/22 11:00:00 [facility], [facility], 191, cm, 02/11/22 11:45:00 [...] tablet, 5 Refills, Maintenance, 07/08/22 10:43:00 EST, [facility], 191, cm, 02/11/22 11:45:00 [...] Painful peripheral neuropathy - NOS Confirmed Active alf prescription benzodiazepine use Confirmed Active PTSD - Post-traumatic stress disorder Confirmed Active Limited mobility Confirmed Active Severe obesity Confirmed Active Non-insulin dependent type 2 diabetes mellitus Confirmed Active Social History Social History Type Response Smoking Status Never entered on: 05/15/18 Sex Patient Care team information Care Team Personnel Name: Gladis Carrizales RN Position: [facility] RN Member Role: Primary Care Nurse Name: Ebony Santoyo RN Position: [facility] RN Member Role: Primary Care Nurse Name: Siobhan Ko RN Position: [facility] RN Member Role: Primary Care Nurse Name: Evette Marrero Position: [facility] RN Supv Member Role: Primary Care Nurse Name: Aviva Howard RN Position: [facility] RN Member Role: Primary Care Nurse Name: Hilda Doyle RN Position: [facility] RN Supv Member Role: Primary Care Nurse Name: Kimmy Ahumada NP Position: [facility] Associate Professional Member Role: Primary Care Nurse Address: Address: [address] [place] [address]- Name: Bruce Mccurdy MD Position: [facility] Renal MD Member Role: Lifetime Consulting Physician Address: Address: [address] [place] [address], [address] [facility] [place] [address]- [place] Name: Regis Huang RN Position: [facility] RN Member Role: Primary Care Nurse Name: JO GONZALEZ RN Position: [facility] RN Member Role: Primary Care Nurse Name: Mirella Mabry RN Position: [facility] RN Member Role: Primary Care Nurse Name: Shelby Luna RN Position: [facility] RN Member Role: Primary Care Nurse Name: Sarina Camejo RN Position: [facility] RN Member Role: Primary Care Nurse Name: Lachelle Shine RN Position: [facility] RN Member Role: Primary Care Nurse Name: Leilani Lerma RN Position: [facility] HBO Wound Member Role: Primary Care Nurse Name: Sandrita Portillo LPN Position: [facility] RN Member Role: Primary Care Nurse Name: Corina Munoz RN Position: [facility] RN Member Role: Primary Care Nurse Name: Vania Hernandez Position: [facility] RN Member Role: Primary Care Nurse Name: Mukul Dougherty RN Position: [facility] RN Member Role: Primary Care Nurse Name: Hammad Gambino RN Position: [facility] RN Member Role: Primary Care Nurse Name: Kenia Rao RN Position: [facility] RN Member Role: Primary Care Nurse Name: Michele Villavicencio RN Position: [facility] RN Member Role: Primary Care Nurse Name: Brown Parada MD Position: [facility] Primary Care Physician Member Role: PCP Address: Address: [address] [place] [id number]- [place] Name: Charlette Lopez RN Position: [facility] RN Member Role: Primary Care Nurse Name: Elena Sheikh RN Position: [facility] RN Member Role: Primary Care Nurse Name: Theodora Serna RN Position: [facility] PCO RN Member Role: Primary Care Nurse Name: Yang Silva RN Position: [facility] RN Member Role: Primary Care Nurse Name: Xiomara Mario RN Position: [facility] RN Member Role: Primary Care Nurse Name: Meg Norman RN Position: [facility] RN Member Role: Primary Care Nurse Name: Latanya Garza RN Position: [facility] RN Member Role: Primary Care Nurse Name: Jaimie Gibson RN Position: [facility] RN Member Role: Primary Care Nurse Name: Carmen Bruner RN Position: S RN Member Role: Primary Care Nurse Name: Kirill Mccartney RN Position: [facility] RN Member Role: Primary Care Nurse Name: Chacha Hassan RN Position: [facility] RN Member Role: Primary Care Nurse Name: Earlene Grayson RN Position: [facility] SN RN Member Role: Primary Care Nurse Name: Cem Carroll MD Position: [facility] Renal MD Member Role: Lifetime Consulting Physician Address: Address: [address] [place] [address] [facility] [address] Name: Shilpa Richardson RN Position: [facility] RN Member Role: Primary Care Nurse Name: Eusebia Hassan RN Position: [facility] RN Member Role: Primary Care Nurse Name: Arsalan Cai RN Position: [facility] RN Member Role: Primary Care Nurse Care Team Related Persons Name: JIMENEZ BRUNER Address: [address] [place] [address] Name: ANYA DE JESUS Address: [address] [place] [address]
--- OUTSIDE RECORDS SUMMARY | 2022-10-04 17:50 | XMS_ITS | Continuity of Care Document ---
Author Name Unknown Organization [facility] Eddie Aung Address [address] [place] [address]- Care Team Providers Care Administrative Judge Name Role Phone Sanaz WILKINS, Matheus Castro Primary Care Physician [phone] Encounter [facility] Date(s): 01/25/20 - 02/24/20 [facility] Adult [address] [place] [address]- [facility] Allergies, Adverse Reactions, Alerts Substance [...] kyle tetanus/diphtheria/pertussis, acel(Tdap) 05/07/09 Given 1Result Comment: [id number] 2Result Comment: [id number] 3Result Comment: [05/15/2018] 13572-063-31 Medications acetaminophen 325 mg oral tablet 650 [...] 10/25/19 8:57:00 EDT, Route to Pharmacy Electronically, [email or web address], 191, cm, 07/23/19 14:30:00EST, Height, 193.5, kg, 05/21/19 5:38:00 EST, Dry Weight Start Date: 10/25/19 Stop Date: 04/22/20 Status: Ordered cyanocobalamin 1000 mcg oral tablet, extended release 1 tablet = 1,000 mcg, By Mouth, Daily, # 30 tablet, 11 Refills, Maintenance, 02/21/20 10:38:00 EDT,[email or web address], 191, cm, 12/27/19 12:20:00 EDT, [...] EDT, Route to Pharmacy Electronically, [facility], 191, cm, 07/23/2013:30:00 EST, Height, 193.5, kg, 05/21/19 5:38:00 EST,... Start Date: 12/12/19 Status: Ordered Flonase 50 mcg/inh nasal spray 1 sprays, Nares, Both, 2 times a day, # 16 Gm, 0 Refills, Maintenance, 05/23/18 10:06:41 EST, [place], 1 sprays Nares, Both 2 times a day Start Date: 05/23/18 Status: Ordered gabapentin 300 mg oral capsule 300 mg, 1, capsule, By Mouth, Daily, APPOINTMENT 02/26/20, # 10 capsule, Refills 0, Tot. Refills 0, Maintenance, 02/22/20 13:44:00 EDT, Route to Pharmacy Electronically, [facility], 191, cm, 12/27/19 12:20:00 EDT, [...] EDT, Route to Pharmacy Electronically, [facility], 191, cm, 12/27/19 12:20:00 EDT, [...] Start Date: 08/06/19 Status: Ordered nystatin topical 832582 u/gm powder See Instructions, Topically 2 times [...] Maintenance,07/19/19 15:02:00 EST, Route to Pharmacy Electronically, [facility], 191, cm, 07/18/19 14:17:00 EST, Height, 193.5, kg, 05/21/19 5:38:00 E... Start Date: 07/19/19 Status: Ordered QUEtiapine 50 mg oral tablet 1 tablet = 50 mg, By Mouth, Daily, # 30 tablet, 5 Refills, Maintenance, 12/12/19 10:07:00 EDT, Tablet, [facility], 191, cm, 07/23/19 14:30:00 EST, Height, 193.5, kg, 05/21/19 5:38:00EST, Dry Weight Start Date: 12/12/19 Status: Ordered spironolactone 25 mg oral tablet 25 mg, 1, tablet, By Mouth, Daily, # 30 tablet, Refills 5, Tot. Refills 5, Maintenance, 02/19/20 9:52:00 EDT, Route to Pharmacy Electronically, [facility], 191, cm, 12/27/19 12:20:00EDT, Height, 193.5, kg, 05/21/19 5:38:00 EST, Dry Weight Start Date: 02/19/20 Status: Ordered traZODone 50 mg oral tablet 100 mg, 2, tablet, By Mouth, Daily at bedtime, # 60 tablet, Refills 5, Tot. Refills 5, Maintenance,02/01/20 10:29:00 EDT, Route to Pharmacy Electronically, [facility], 191, cm, 12/27/19 12:20:00 EDT, Height, 193.5, kg, 05/21/19 5:38:00 E... Start Date: 02/01/20 Status: Ordered Vitamin D3 2000 intl units oral tablet 1 tablet = 2,000 International_Units, By Mouth, Daily, # 90 tablet, 1 Refills, Maintenance, 02/20/20 14:34:00 EDT, [facility], 191, cm, 12/27/19 12:20:00 [...]
--- OUTSIDE RECORDS SUMMARY | 2022-10-04 17:50 | XMS_ITS | Continuity of Care Document ---
Author Name Unknown Organization [facility] Aung lt Address [address] [place] [address]- Care Team Providers Care A Class Lineman Name Role Phone Sanaz WILKINS, Matheus Castro Primary Care Physician [phone] Encounter [facility] Date(s): 03/20/21 - 04/19/21 [facility] Adult [address] [place] [address]- Allergies, Adverse Reactions, Alerts Substance Reaction Severity [...] kyle tetanus/diphtheria/pertussis, acel(Tdap) 05/07/09 Given 1Result Comment: [id number] 2Result Comment: [id number] 3Result Comment: [05/15/2018] [id number] Medications acetaminophen 325 mg oral tablet 650 mg, By Mouth, Every 4 hours, PRN, Refills 0, Maintenance, Pain , Mild, 12/12/19 13:05:00 EDT Start Date: 12/12/19 Status: Ordered apixaban 5 mg oral tablet 1 tablet = 5 mg, By Mouth, 2 times a day, # 60 tablet, 3 Refills, Maintenance, 01/13/21 15:09:00 EDT, Tablet, [facility], Partial fill upon patient [...] 01/13/21 15:09:00 EDT, Route to Pharmacy Electronically, [facility], [...] 01/13/21 15:09:00 EDT, Route to Pharmacy Electronically, [facility] 3, [...] 01/18/21 11:37:00 EDT, Route to Pharmacy Electronically, [facility] 3, Partial fill upon patient request if the prescription is for a errol... Start Date: 01/18/21 Status: Ordered Flonase 50 mcg/inh nasal spray 1 sprays, Nares, Both, 2 times a day, # 16 Gm, 11 Refills, Maintenance, 07/08/20 16:47:00 EST, [place], [facility], 1 sprays [...] Refills 0, Tot. Refills 0, Maintenance, dx: [id number]. 40, oxygen dependence Z99.81, 01/27/21 11:50:00 EDT, [...] 01/18/21 11:37:00 EDT, Route to Pharmacy Electronically, [facility], Partial fill upon patient request if the prescription is for a schedule II... Start Date: 01/18/21 Status: Ordered loperamide 2 mg oral tablet 1 tablet = 2 mg, By Mouth, Every 4 hours, PRN as needed for loose stool, not to exceed 16 mg/day, #100 tablet, 0 Refills, Maintenance, 04/28/20 13:13:00 EST, Tablet, [facility], Partial fill upon patient request, [...] EDT, Route to Pharmacy Electronically, [facility], 190, cm, 01/23/21 8:35:00 EDT, Height, 153, kg, 01/14/21... Start Date: 04/02/21 Status: Ordered ProAir HFA 90 mcg/inh inhalation aerosol 2 puffs, Inhalation, Every 4 hours, PRN Wheezing/Shortness of Breath, # 1 each, 5 Refills, Maintenance, 06/27/20 16:56:00 EST, [facility], Partial fill upon patient request [...] Maintenance, 03/27/21 12:31:00 EDT, Tablet, [facility], [...]
--- OUTSIDE RECORDS SUMMARY | 2022-10-04 17:50 | XMS_ITS | Continuity of Care Document ---
Author Name Unknown Organization [facility] Aung lt Address [address] [place] [address]- Care Team Providers Care Advertising Material Distributor Name Role Phone Tal WILKINS, Brown Paz Primary Care Physician [phone] Encounter [facility] Date(s): 08/10/21 - 09/09/21 [facility] Adult [address] [place] [address]- Allergies, Adverse Reactions, Alerts Substance Reaction Severity [...] Reason: Med Not Available 2Result Comment: [05/15/2018] 87702-384-35 3Result Comment: [id number] 4Result Comment: [id number] Medications acetaminophen 325 mg oral tablet 650 [...] Gm, 11 Refills, Maintenance, 07/08/20 16:47:00 EST, [place], [facility], 1 sprays [...] Replace Required Details, Route to Pharmacy Electronically, [facility], 190, cm, 07/27/21 12:49... Start Date: 07/30/21 Status: Ordered hydrOXYzine hydrochloride 25 mg oral tablet 1 tablet, By Mouth, 3 times a day, BUBBLE PACK, # 84 tablet, 5 Refills, Maintenance, 07/30/21 9:02:00 EST, [facility], 190, cm, 07/27/21 12:49:00 EST, [...] # 90 Unknown, 3 Refills, [facility], 190, cm, 07/27/21 12:49:00 EST, Height, 153, kg, 01/14/21 23:22:00 EDT, Dry Weight Start Date: 08/11/21 Status: Ordered Lantus 100 u/ml subcutaneous solution = 20 units, Subcutaneous Injection, Daily at bedtime, # 10 mL, 0 Refills, Maintenance, 07/21/21 11:47:00 EST, Solution, [facility], Partial fill upon patient request if the prescriptionis for a schedule II opioid drug., 190, cm, ... Start Date: 07/21/21 Status: Ordered LORazepam 2 mg oral tablet 1 tablet = 2 mg, By Mouth, 3 times a day, PRN for anxiety, # 90 tablet, 2 Refills, Maintenance, 06/11/21 16:39:00 EST, Tablet, [facility], 190, cm, 04/03/21 10:25:00 EDT, [...] COMMUNICATE SUGARS WITH PCP TO TITRATE LANTUS. [phone], 08/28... 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
--- OUTSIDE RECORDS SUMMARY | 2022-10-04 17:50 | XMS_ITS | Continuity of Care Document ---
Author Name Unknown Organization [facility] Aung lt Address [address] [place] [address]- Care Team Providers Care Front Desk Manager Name Role Phone Tal WILKINS, Brown Paz Primary Care Physician Encounter [facility] Date(s): 10/22/21 - 11/21/21 [facility] Adult [address] [place] [address]- Allergies, Adverse Reactions, Alerts Substance Reaction Severity [...] Reason: Med Not Available 2Result Comment: [05/15/2018] 96347-102-16 3Result Comment: [id number] 4Result Comment: [id number] Medications acetaminophen 325 mg oral tablet 650 [...] Gm, 11 Refills, Maintenance, 07/08/20 16:47:00 EST, [place], [facility], 1 sprays [...] Details, Route to Pharmacy Electronically, [facility], 190, cm, 07/27/21 12:49... Start Date: 07/30/21 Status: Ordered hydrOXYzine hydrochloride 25 mg oral tablet 1 tablet, By Mouth, 3 times a day, BUBBLE PACK, # 84 tablet, 5 Refills, Maintenance, 07/30/21 9:02:00 EST, [facility], 190, cm, 07/27/21 12:49:00 EST, [...] 0 Refills, Maintenance, 07/21/21 11:47:00 EST, Solution, [facility] 3, Partial fill upon patient [...] COMMUNICATE SUGARS WITH PCP TO TITRATE LANTUS. [phone], 08/28... Start Date: 08/28/21 Status: Ordered One [...] Tot. Refills 0, Maintenance, Pain , Severe, 11/19/21 7:46:00 EDT, Route to Pharmacy Electronically, [facility], Partial fill upon... Start Date: 11/19/21 Status: Ordered pantoprazole 40 mg oral delayed [...] 168 capsule, 5 Refills, 09/15/21 5:56:00 EDT, [facility], 191, cm, 08/28/21 11:32:00 EDT, Height, 168.5, kg, 08/18/21 22:23:00 EDT... Start Date: 09/15/21 Status: Ordered prazosin 5 mg oral capsule 5 mg, 1, capsule, By Mouth, Daily at bedtime, BUBBLE PACK, # 28 capsule, Refills 4, Tot. Refills 4,Maintenance, 04/02/21 8:22:00 EDT, Route to Pharmacy Electronically, [email or web address], 190, cm, 01/23/21 8:35:00 EDT, Height, 153, kg, 01/14/21... Start Date: 04/02/21 Status: Ordered ProAir HFA 90 mcg/inh inhalation aerosol 2 puffs, Inhalation, Every 4 hours, PRN Wheezing/Shortness of Breath, # 1 each, 5 Refills, Maintenance, 06/27/20 16:56:00 EST, [facility], Partial fill upon patient request [...] peripheral neuropath y - NOS(Confirmed) Active intermediate frame tender prescription benzo diazepine use(Confirmed) Active Limited mobility(Confirmed) Active Severe obesity(Confirmed) Active Non-insulin dependent type 2 diabetes mellitus(Confirmed) Active Social History Social History Type Response Smoking Status Never entered on: 05/15/18 Sex
--- OUTSIDE RECORDS SUMMARY | 2022-10-04 17:50 | XMS_ITS | Continuity of Care Document ---
Author Name Unknown Organization [facility] Aung lt Address [address] [place] [address]- Care Team Providers Care Subsurface Augmentee Operator Name Role Phone Brown Parada MD Primary Care Physician Encounter [facility] Date(s): 12/29/21 - 01/05/22 [facility] Adult [address] [place] [address]- Attending Physician: Jaimie Card Referring Physician: Brown Parada MD Allergies, Adverse [...] Reason: Med Not Available 2Result Comment: [05/15/2018] 71666-203-28 3Result Comment: [id number] 4Result Comment: [id number] Medications acetaminophen 325 mg oral tablet 650 [...] Dry Weight Start Date: 02/23/21 Status: Ordered [facility] Glucometer See Instructions, # 1 each, [...] Gm, 11 Refills, Maintenance, 07/08/20 16:47:00 EST, [place], [facility], 1 sprays [...] Dry Weight Start Date: 12/22/21 Status: Ordered Imodium A-D 2 mg oral tablet 2 mg, 1, tablet, By Mouth, Every 4 hours, PRN, # 60 tablet, Refills 0, Tot. Refills 0, Acute 01/08/22 5:15:00 EDT, for loose stool, 12/11/21 5:07:00 EDT, Route to Pharmacy Electronically, [facility], Partial fill upon patient request if t... Start Date: 12/11/21 Stop Date: 01/08/22 Status: Ordered Insulin Syringe, BD Ultra-Fine 0.3 [...] 0 Refills, Maintenance, 07/21/21 11:47:00 EST, Solution, [facility], Partial fill upon patient request if [...] COMMUNICATE SUGARS WITH PCP TO TITRATE LANTUS. [phone], 08/28... Start Date: 08/28/21 Status: Ordered One [...] syndrome; may fill for less than full amount. May fill on or after 12/16/21, # 56 tablet, Refills 0, Tot. Refills 0, Maintenance, Pain , Severe, 12/13/21 17:11:00 EDT, Route to... Start Date: 12/13/21 Status: Ordered pantoprazole 40 mg oral delayed [...] 5 Refills, 09/15/21 5:56:00 EDT, [facility], 191, cm, 08/28/21 11:32:00 EDT, Height, 168.5, kg, 08/18/21 22:23:00 EDT... Start Date: 09/15/21 Status: Ordered prazosin 5 mg oral capsule 5 mg, 1, capsule, By Mouth, Daily at bedtime, BUBBLE PACK, # 28 capsule, Refills 4, Tot. Refills 4,Maintenance, 04/02/21 8:22:00 EDT, Route to Pharmacy Electronically, [facility], 190, cm, 01/23/21 8:35:00 EDT, [...] oldest [Reference Range]: 1 Height 191 cm (12/29/21 3:04 PM) Weight 163.63 kg (12/29/21 3:04 PM) Oxygen Saturation [94-100 %] 95 % (12/29/21 3:04 PM) Pulse Rate [55-90 bpm] 81 bpm (12/29/21 3:04 PM) Body Mass Index [18.5-24.99] 44.85 *>HHI* (12/29/21 3:04 PM) Blood Pressure [90-138/55-84 mm Hg] 113/ 71mm Hg (12/29/21 3:04 PM) Temperature [96.8-100.4 DegF] 96.7 DegF *L* (12/29/21 3:04 PM) Blood pressure sites Arm, left (12/29/21 3:04 PM) Temperature Route Temporal (12/29/21 3:04 PM) Social History Social History Type Response Smoking Status Never entered on: 05/15/18 Sex
--- OUTSIDE RECORDS SUMMARY | 2022-10-04 17:50 | XMS_ITS | Continuity of Care Document ---
Author Name Unknown Organization [facility] Aung Address [address] [place] [address]- Care Team Providers Care Lumber Driver Name Role Phone Matheus Yo MD Primary Care Physician [phone] Encounter [facility] Date(s): 07/11/20 - 07/18/20 [facility] Adult [address] [place] [address]- Attending Physician: Matheus Yo MD Allergies, Adverse [...] kyle tetanus/diphtheria/pertussis, acel(Tdap) 05/07/09 Given 1Result Comment: [id number] 2Result Comment: [id number] 3Result Comment: [05/15/2018] [id number] Medications acetaminophen 325 mg oral tablet 650 mg, By Mouth, Every 4 hours, PRN, Refills 0, Maintenance, Pain , Mild, 12/12/19 13:05:00 EDT Start Date: 12/12/19 Status: Ordered albuterol CFC free 90 mcg/inh inhalation aerosol 2, puffs, Inhalation, Every 4 hours, PRN, # 18 Gm, Refills 5, Tot. Refills 5, Maintenance, 06/24/2115:37:00 EST, Aerosol, Route to Pharmacy Electronically, [id number], [facility], 191, cm, 06/24/20 [...] 05/07/20 10:14:00 EST, Route to Pharmacy Electronically, [facility], 191, cm, 12/27/19 12:20:00 EDT, [...] Gm, 11 Refills, Maintenance, 07/08/20 16:47:00 EST, [place], [facility], 1 sprays Nares, Both 2 times a day, 191, cm, 06/24/20 13:40:00 EST, Height, 193.5, kg, 05/21/19 5:38:00 EST, Dry Weight Start Date: 07/08/20 Status: Ordered gabapentin 300 mg oral capsule 300 mg, 1, capsule, By Mouth, 3 times a day, # 90 capsule, Refills 11, Tot. Refills 11, Maintenance, 04/28/20 13:15:00 EST, Route to Pharmacy Electronically, [facility], 191, cm, 12/27/19 12:20:00 EDT, [...] Soft Stop, 05/07/20 13:32:00 EST, [facility], 191, cm, 12/27/19 12:20:00 EDT, Height, 193.5, kg, 05/21/19 5:38:00 EST, Dry Weight Start Date: 05/07/20 Status: Ordered nystatin topical 742905 u/gm powder See Instructions, Topically 2 times a day, # 60 Gm, 5 Refills, Maintenance, 02/19/20 15:59:00 EDT, Powder, [facility], Topically 2 times a day, 191, cm, 12/27/19 12:20:00 EDT, Height, 193.5, kg, 05/21/19 5:38:00 EST, Dry Weight Start Date: 02/19/20 Status: Ordered phenytoin 100 mg oral capsule, extended release See Instructions, TAKE 2 CAPSULES BY MOUTH IN THE MORNING & TAKE 4 CAPSULES IN THE EVENING.., #180 Unknown, 3 Refills, Maintenance, [facility], 191, cm, 06/24/20 13:40:00 EST, Height, 193.5, kg, 05/21/19 5:38:00 EST, Dry Weight Start Date: 07/08/20 Status: Ordered prazosin 5 mg oral capsule 5 mg, 1, capsule, By Mouth, Daily at bedtime, # 30 capsule, Refills 5, Tot. Refills 5, Maintenance,07/19/19 15:02:00 EST, Route to Pharmacy Electronically, [facility], 191, cm, 07/18/19 14:17:00 EST, [...] Maintenance, 04/25/20 14:23:00 EST, Tablet, [facility], 191, cm, 12/27/19 12:20:00 EDT, Height, 193.5, kg, 05/21/19 5:38:00EST, Dry Weight Start Date: 04/25/20 Status: Ordered spironolactone 25 mg oral tablet 25 mg, 1, tablet, By Mouth, Daily, # 30 tablet, Refills 5, Tot. Refills 5, Maintenance, 02/19/20 9:52:00 EDT, Route to Pharmacy Electronically, [facility], 191, cm, 12/27/19 12:20:00EDT, Height, 193.5, kg, 05/21/19 5:38:00 EST, Dry Weight Start Date: 02/19/20 Status: Ordered traZODone 50 mg oral tablet 100 mg, 2, tablet, By Mouth, Daily at bedtime, # 60 tablet, Refills 5, Tot. Refills 5, Maintenance,06/23/20 11:13:00 EST, Route to Pharmacy Electronically, [facility], 191, cm, 12/27/19 12:20:00 EDT, [...]
--- OUTSIDE RECORDS SUMMARY | 2022-10-04 17:50 | XMS_ITS | Continuity of Care Document ---
Author Name Unknown Organization [facility] Aung Address [address] [place] [address]- Care Team Providers Care Budget Officer Name Role Phone Sanaz WILKINS, Matheus Castro Primary Care Physician Encounter [facility] Date(s): 04/03/21 - 05/03/21 [facility] Adult [address] [place] [address]- Attending Physician: Raji Shoemaker Admitting Physician: AdmtrRaji Referring Physician: Admtr ArShahbaz Allergies, Adverse Reactions, Alerts Substance Reaction Severity [...] kyle tetanus/diphtheria/pertussis, acel(Tdap) 05/07/09 Given 1Result Comment: [id number] 2Result Comment: [id number] 3Result Comment: [05/15/2018] [id number] Medications acetaminophen 325 mg oral tablet 650 mg, By Mouth, Every 4 hours, PRN, Refills 0, Maintenance, Pain , Mild, 12/12/19 13:05:00 EDT Start Date: 12/12/19 Status: Ordered apixaban 5 mg oral tablet 1 tablet = 5 mg, By Mouth, 2 times a day, # 60 tablet, 3 Refills, Maintenance, 01/13/21 15:09:00 EDT, Tablet, [facility], Partial fill upon patient [...] 01/13/21 15:09:00 EDT, Route to Pharmacy Electronically, [facility], Partial fill upon patient [...] 01/13/21 15:09:00 EDT, Route to Pharmacy Electronically, [facility], Partial fill upon patient request if [...] 01/18/21 11:37:00 EDT, Route to Pharmacy Electronically, [facility], Partial fill upon patient request if the prescription is for a errol... Start Date: 01/18/21 Status: Ordered Flonase 50 mcg/inh nasal spray 1 sprays, Nares, Both, 2 times a day, # 16 Gm, 11 Refills, Maintenance, 07/08/20 16:47:00 EST, [place], [facility], 1 sprays [...] Refills 0, Tot. Refills 0, Maintenance, dx: [id number]. 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
--- OUTSIDE RECORDS SUMMARY | 2022-10-04 17:50 | XMS_ITS | Continuity of Care Document ---
Author Name Unknown Organization [facility] Aung Address [address] [place] [address]- Care Team Providers Care Industrial Economics Teacher Name Role Phone Tal WILKINS, Brown Paz Primary Care Physician [phone] Encounter [facility] Date(s): 07/28/21 - 08/27/21 [facility] Adult [address] [place] [address]- Allergies, Adverse Reactions, Alerts Substance Reaction Severity [...] Reason: Med Not Available 2Result Comment: [05/15/2018] 95481-787-92 3Result Comment: [id number] 4Result Comment: [id number] Medications acetaminophen 325 mg oral tablet 650 [...] Gm, 11 Refills, Maintenance, 07/08/20 16:47:00 EST, [place], [facility], 1 sprays Nares, Both 2 times a day, 191, cm, 06/24/20 13:40:00 EST, Height, 193.5, kg, 05/21/19 5:38:00 EST, Dry Weight Start Date: 07/08/20 Status: Ordered gabapentin 300 mg oral capsule See Instructions, 1 capsule By Mouth 5 times a day, # 150 capsule, Refills 5, Tot. Refills 5, Maintenance, 07/30/21 14:09:00 EST, Instructions Replace Required Details, Route to Pharmacy Electronically, [facility], 190, cm, 07/27/21 12:49... Start [...] 0 Refills, Maintenance, 07/21/21 11:47:00 EST, Solution, [facility] 3, Partial fill upon patient request [...] EDT, Route to Pharmacy Electronically, [facility], 190, cm, 01/23/21 8:35:00 EDT, [...] Painful peripheral neuropath y - NOS(Confirmed) Active [facility] prescription benzo diazepine use(Confirmed) Active Limited mobility(Confirmed) Active Severe obesity(Confirmed) Active Non-insulin dependent type 2 diabetes mellitus(Confirmed) Active Social History Social History Type Response Smoking Status Never entered on: 05/15/18 Sex
--- OUTSIDE RECORDS SUMMARY | 2022-10-04 17:50 | XMS_ITS | Continuity of Care Document ---
Author Name Unknown Organization [facility] Aung Address [address] [place] [address]- Care Team Providers Care Office Messenger Helper Name Role Phone Sanaz WILKINS, Matheus Castro Primary Care Physician [phone] Encounter [facility] [place] Date(s): 05/14/20 - 06/13/20 [facility] Adult [address] [place] [address]- Allergies, Adverse Reactions, Alerts Substance Reaction Severity [...] kyle tetanus/diphtheria/pertussis, acel(Tdap) 05/07/09 Given 1Result Comment: [id number] 2Result Comment: [id number] 3Result Comment: [05/15/2018] 89315-521-43 Medications acetaminophen 325 mg oral tablet 650 [...] 05/07/20 10:14:00 EST, Route to Pharmacy Electronically, [facility], 191, cm, 12/27/19 12:20:00 EDT, Height, 193.5, kg, 05/21/19 5:38:00 EST, Dry Weight Start Date: 05/07/20 Stop Date: 11/03/20 Status: Ordered cyanocobalamin 1000 mcg oral tablet, extended release 1 tablet = 1,000 mcg, By Mouth, Daily, # 30 tablet, 11 Refills, Maintenance, 02/21/20 10:38:00 EDT,[facility], 191, cm, 12/27/19 12:20:00 EDT, [...] 12/12/19 13:24:00 EDT, Route to Pharmacy Electronically, [facility], 191, cm, 07/23/2013:30:00 EST, Height, 193.5, kg, 05/21/19 5:38:00 EST,... Start Date: 12/12/19 Status: Ordered Flonase 50 mcg/inh nasal spray 1 sprays, Nares, Both, 2 times a day, # 16 Gm, 0 Refills, Maintenance, 05/23/18 10:06:41 EST, [place], 1 sprays Nares, Both 2 times a day Start Date: 05/23/18 Status: Ordered gabapentin 300 mg oral capsule 300 mg, 1, capsule, By Mouth, 3 times a day, # 90 capsule, Refills 11, Tot. Refills 11, Maintenance, 04/28/20 13:15:00 EST, Route to Pharmacy Electronically, [facility], 191, cm, 12/27/19 12:20:00 EDT, Height, 193.5, kg, 05/21/19 5:38:00... Start Date: 04/28/20 Stop Date: 04/23/21 Status: Ordered hydrOXYzine hydrochloride 25 mg oral tablet 1 tablet = 25 mg, By Mouth, 3 times a day, # 90 tablet, 11 Refills, Maintenance, 04/09/20 16:46:00 EST, Tablet, [facility], 191, cm, 12/27/19 12:20:00 EDT, Height, 193.5, kg, 05/21/19 5:38:00 EST, Dry Weight Start Date: 04/09/20 Status: Ordered isosorbide mononitrate 60 mg oral tablet, extended release 60 mg, 1, tablet, By Mouth, Daily in AM, # 90 tablet, Refills 0, Tot. Refills 0, Soft Stop, 02/20/20 14:34:00 EDT, Route to Pharmacy Electronically, [facility], 191, cm, 12/27/19 12:20:00 EDT, Height, 193.5, kg, 05/21/19 5:38:00 EST, Dry... Start Date: 02/20/20 Status: Ordered Lasix 40 mg oral tablet 40 mg, 1, tablet, By Mouth, 2 times a day, # 60 tablet, Refills 5, Tot. Refills 5, Maintenance, 03/31/20 17:16:00 EDT, Route to Pharmacy Electronically, [facility], 191, cm, 12/27/2011:20:00 EDT, Height, 193.5, kg, 05/21/19 5:38:00 EST,... Start Date: 03/31/20 Status: Ordered lisinopril 40 mg oral tablet 1 tablet = 40 mg, By Mouth, Daily, APPOINTMENT 02/26/20, # 10 tablet, 0 Refills, Maintenance, 02/22/20 13:44:00 EDT, Tablet, [facility], 191, cm, 12/27/19 12:20:00 EDT, Height, 193.5,kg, 05/21/19 5:38:00 EST, Dry Weight Start Date: 02/22/20 Status: Ordered loperamide 2 mg oral tablet 1 tablet = 2 mg, By Mouth, Every 4 hours, PRN as needed for loose stool, not to exceed 16 mg/day, #100 tablet, 0 Refills, Maintenance, 04/28/20 13:13:00 EST, Tablet, [facility], Partial fill upon patient request, 191, cm, 12/27/19 12:20:... Start Date: 04/28/20 Status: Ordered LORazepam 2 mg oral tablet 1 tablet = 2 mg, By Mouth, 3 times a day, PRN for anxiety, # 90 tablet, 2 Refills, Maintenance, 04/28/20 13:18:00 EST, Tablet, [facility], 191, cm, 12/27/19 12:20:00 EDT, [...] Start Date: 05/07/20 Status: Ordered nystatin topical 991883 u/gm powder See Instructions, Topically 2 times [...] 02/19/20 9:52:00 EDT, Route to Pharmacy Electronically, [facility], 191, cm, 12/27/19 12:20:00EDT, Height, 193.5, kg, 05/21/19 5:38:00 EST, Dry Weight Start Date: 02/19/20 Status: Ordered traZODone 50 mg oral tablet 100 mg, 2, tablet, By Mouth, Daily at bedtime, # 60 tablet, Refills 5, Tot. Refills 5, Maintenance,02/01/20 10:29:00 EDT, Route to Pharmacy Electronically, [facility], 191, cm, 12/27/19 12:20:00 EDT, Height, 193.5, kg, 05/21/19 5:38:00 E... Start Date: 02/01/20 Status: Ordered Vitamin D3 2000 intl units oral tablet 1 tablet = 2,000 International_Units, By Mouth, Daily, # 90 tablet, 1 Refills, Maintenance, 02/20/20 14:34:00 EDT, [facility], 191, cm, 12/27/19 12:20:00 EDT, [...]
--- OUTSIDE RECORDS SUMMARY | 2022-10-04 17:50 | XMS_ITS | Continuity of Care Document ---
Author Name Unknown Organization [facility] ter Address [address] [place] [id number]- Care Team Providers Care Software Asset Manager Name Role Phone Sanaz WILKINS, Matheus Castro Primary Care Physician [phone] Encounter [facility] [place] Date(s): 01/14/21 - 01/18/[address] [address]- Discharge Disposition: Disch/Trans to IP Rehab or unit w/in Hos Attending Physician: Toma Conroy MD Admitting Physician: Kali Grove MD Referring Physician: Not on Staff, Referring [...] kyle tetanus/diphtheria/pertussis, acel(Tdap) 05/07/09 Given 1Result Comment: [id number] 2Result Comment: [id number] 3Result Comment: [05/15/2018] 52646-342-70 Medications acetaminophen 325 mg oral tablet 650 mg, By Mouth, Every 4 hours, PRN, Refills 0, Maintenance, Pain , Mild, 12/12/19 13:05:00 EDT Start Date: 12/12/19 Status: Ordered apixaban 5 mg oral tablet 1 tablet = 5 mg, By Mouth, 2 times a day, # 60 tablet, 3 Refills, Maintenance, 01/13/21 15:09:00 EDT, Tablet, [facility], Partial fill upon patient [...] Refills, Maintenance, 01/13/21 15:09:00 EDT, CR Capsule, [facility], Partial fill upon patient request if the prescription is for a schedule II opioid drug., 190, cm, 01/13/21 7:49:00... Start Date: 01/13/21 Stop Date: 03/14/21 Status: Ordered cefpodoxime 200 mg oral tablet 1 tablet = 200 mg, By Mouth, Every 12 hours, for 2 days, # 4 tablet, 0 Refills, Acute 01/20/21 11:40:00 EDT, 01/18/21 11:40:00 EDT, Tablet, [facility], Partial fill upon patient requestif the prescription is for a schedule II opioid ritchie... Start Date: 01/18/21 Stop Date: 01/20/21 Status: Ordered colchicine 0.6 mg oral tablet 0.6 mg, 1, tablet, By Mouth, 2 times a day, # 60 tablet, Refills 1, Tot. Refills 1, Maintenance, 01/13/21 15:09:00 EDT, Route to Pharmacy Electronically, [facility], Partial fill upon patient [...] digoxin 0.25 mg oral tablet 0.25 mg, Tablet, By Mouth, 01/18/21 16:00:00 EDT Start Date: 01/18/21 Stop Date: 01/18/21 Status: Completed digoxin 0.25 mg oral tablet 0.25 mg, 1, tablet, By Mouth, Daily, # 30 tablet, Refills 0, Tot. Refills 0, Maintenance, 01/13/21 15:09:00 EDT, Route to Pharmacy Electronically, [facility], Partial fill upon patient request [...] 01/18/21 11:37:00 EDT, Route to Pharmacy Electronically, [facility], Partial fill upon patient request if the prescription is for a errol... Start Date: 01/18/21 Status: Ordered Flonase 50 mcg/inh nasal spray 1 sprays, Nares, Both, 2 times a day, # 16 Gm, 11 Refills, Maintenance, 07/08/20 16:47:00 EST, [place], [facility], 1 sprays [...] Date: 07/24/20 Stop Date: 07/19/21 Status: Ordered gabapentin 300 mg oral capsule 300 mg, Capsule, By Mouth, 01/18/21 17:00:00 EDT Start Date: 01/18/21 Stop Date: 01/18/21 Status: Completed hydrOXYzine hydrochloride 25 mg oral tablet 1 tablet = 25 mg, By Mouth, 3 times a day, # 90 tablet, 11 Refills, Maintenance, 04/09/20 16:46:00 EST, Tablet, [facility], 191, cm, 12/27/19 12:20:00 EDT, Height, 193.5, kg, 05/21/19 5:38:00 EST, Dry Weight Start Date: 04/09/20 Status: Ordered isosorbide mononitrate 30 mg oral tablet, extended release 30 mg, 1, tablet, By Mouth, Daily in AM, # 30 tablet, Refills 0, Tot. Refills 0, Maintenance, 01/18/21 11:37:00 EDT, Route to Pharmacy Electronically, [facility], Partial fill upon patient request [...] 1 Refills, Soft Stop, 01/13/21 15:30:00 EDT, [facility], 190, cm, 01/13/21 7:49:00 EDT, Height, [...] each, 5 Refills, Maintenance, 06/27/20 16:56:00 EST, [facility], Partial fill upon patient request [...] Unknown, 5 Refills, Maintenance, 01/13/21 17:05:00 EDT, [facility], 190, cm, 01/13/21 7:49:00 EDT, Height, 170.4, kg, 12/31/20 8:52:00 EDT, Dry Weight Start Date: 01/13/21 Status: Ordered spironolactone 25 mg oral tablet See Instructions, TAKE ONE TABLET BY MOUTH EVERY DAY, # 30 tablet, Refills 2, Maintenance, Instructions Replace Required Details, Route to Pharmacy Electronically, [facility], 191, cm, 06/24/20 13:40:00 EST, Height, 193.5, kg, 05/21/19 5:... Start Date: 12/06/20 Status: Ordered torsemide 20 mg oral tablet 2 tablet = 40 mg, By Mouth, Daily, # 60 tablet, 1 Refills, Maintenance, 01/13/21 15:10:00 EDT, Tablet, [facility], Partial fill upon patient request if the prescription is for a schedule II opioid drug., 190, cm, 01/13/21 7:49:00 EDT, He... Start Date: 01/13/21 Stop Date: 03/14/21 Status: Ordered traZODone 50 mg oral tablet 100 mg, 2, tablet, By Mouth, Daily at bedtime, # 60 tablet, Refills 5, Tot. Refills 5, Maintenance,01/13/21 17:05:00 EDT, Route to Pharmacy Electronically, [facility], 190, cm, 01/13/21 7:49:00 EDT, Height, 170.4, kg, 12/31/20 8:52:00 ED... Start Date: 01/13/21 Status: Ordered Vitamin D3 2000 intl units oral tablet 1 tablet, By Mouth, Daily, # 90 Unknown, 3 Refills, Maintenance, 11/10/20 16:52:00 EDT, [facility], 191, cm, 06/24/20 13:40:00 EST, [...] neuropath y - NOS(Confirmed) Active long term prescription benzo diazepine use(Confirmed) Active Limited mobility(Confirmed) Active Non-insulin dependent type 2 diabetes mellitus(Confirmed) Active Results Orders for Microbiology Reports Name Date Urine Culture (URINE CULTURE) 01/15/21 Microbiology Reports TEST:Urine Culture STATUS:Unauthenticated BODY SITE: SOURCE:URINE COLLECTED DATE/TIME:01/15/21 9:20 PM Urine Culture SPECIMEN DESCRIPTION : URINE SPECIAL REQUESTS : NONE CULTURE : >100,000 COL/ML ESCHERICHIA COLI . THIS ORGANISM IS SUSPICIOUS FOR EXTENDED SPECTRUM BETA LACTAMASE PRODUCTION. SUPPLEMENTAL TESTS PENDING. ORGANISM >100,000 COL/ML ESCHERICHIA COLI . THIS ORGANISM IS SUSPICIOUS FOR EXTENDED SPECTRUM BETA LACTAMASE PRODUCTION. SUPPLEMENTAL TESTS PENDING. METHOD MIN. INHIB. CONC. (MCG/ML) AMPICILLIN RESISTANT AMPICILLIN/SULBACTAM RESISTANT AMOXICILLIN/CLAVULAN RESISTANT CEFAZOLIN RESISTANT CEFEPIME SUSCEPTIBLE CEFTRIAXONE RESISTANT CIPROFLOXACIN SUSCEPTIBLE ERTAPENEM SUSCEPTIBLE GENTAMICIN SUSCEPTIBLE LEVOFLOXACIN SUSCEPTIBLE MEROPENEM SUSCEPTIBLE NITROFURANTOIN SUSCEPTIBLE PIPERACILLIN/TAZOBAC INTERMEDIATE TRIMETH/SULFAMETHOX SUSCEPTIBLE TETRACYCLINE SUSCEPTIBLE REPORT STATUS : PRELIMINARY REPORT Radiology Reports * Exam Date Time Procedure Performing Provider Status 01/15/21 11:57 PM Chest Portable David Urbina; Auth (Verified) Notes: (Chest Portable) Reason For Exam: Shortness of Breath RESULT: Chest Portable Chest Portable Reason: Shortness of Breath; Clinical Question(s): Atelectasis COMPARISON: 01/14/2021 FINDINGS: LINES AND TUBES: None. LUNGS AND PLEURA: Clear lungs. Normal pulmonary vascularity. No pleural effusion. No pneumothorax. HEART, MEDIASTINUM AND NNAMDI: Heart is normal in size. Normal upper mediastinal and hilar contour. BONES AND SOFT TISSUES: No acute abnormality. IMPRESSION: No acute abnormality. WSN: [id number] Ordering Physician: Tonya Franklin Dictated By: Emanuel Sahu MD Dictated Date/Time: 01/16/21 0:02 am Reviewed By: Emanuel Sahu MD Signed By: Emanuel Sahu MD Signed Date/Time: 01/16/21 0:02 am Transcribed By: LEATHA Transcribed Date/Time: 01/16/21 0:01 am * Exam Date Time Procedure Performing Provider Status 01/14/21 2:00 PM Chest Portable Waqar Oneill; Auth (Verified) Notes: (Chest Portable) Reason For Exam: Shortness of Breath RESULT: Chest Portable Examination: Portable chest performed on 01/14/2021. History: Shortness of breath. Findings: A frontal view of the chest is compared to a prior study dated 01/02/2021. The cardiac silhouette is within normal limits for size. The lungs are clear. The osseous and soft tissue structures are unremarkable. IMPRESSION: There is no acute cardiopulmonary disease. WSN: [id number] Ordering Physician: Wilfredo Yousif Dictated By: Radha Mcduffie MD Dictated Date/Time: 01/14/21 2:08 pm Reviewed By: Radha Mcduffie MD Signed By: Radha Mcduffie MD Signed Date/Time: 01/14/21 2:08 pm Transcribed By: LEATHA Transcribed Date/Time: 01/14/21 2:06 pm Vital Signs Most recent to oldest [Reference Range]: 1 2 3 Height 190 cm (01/18/21 4:59 PM) 190 cm (01/18/21 12:16 PM) 190 cm (01/18/21 10:00 AM) Weight 153 kg (01/14/21 9:15 PM) Oxygen Saturation [94-100 %] 93 % *L* (01/18/21 4:59 PM) 97 % (01/18/21 12:16 PM) 89 % *L* (01/18/21 10:00 AM) Pulse Rate [55-90 bpm] 58 bpm (01/18/21 4:59 PM) 72 bpm (01/18/21 3:34 PM) 62 bpm (01/18/21 12:16 PM) Body Mass Index [18.5-24.99] 42.38 *>HHI* (01/14/21 9:15 PM) Blood Pressure [90-138/55-84 mm Hg] 101/46mm Hg (01/18/21 4:59 PM) 100/51mm Hg (01/18/21 12:16 PM) 126/78mm Hg (01/18/21 10:00 AM) Respiratory Rate [16-30 br/min] 18 br/min (01/18/21 5:46 PM) 18 br/min (01/18/21 4:59 PM) 18 br/min (01/18/21 4:46 PM) Temperature [96.8-100.4 DegF] 97.8 DegF (01/18/21 4:59 PM) 97.9 DegF (01/18/21 12:16 PM) 97.7 DegF (01/18/21 10:00 AM) Liters per Minute 2 L/min (01/18/21 12:16 PM) 2 L/min (01/18/21 8:29 AM) 2 L/min (01/17/21 12:15 AM) Mode of Delivery (Oxygen) Room air (01/18/21 4:59 PM) Nasal cannula (01/18/21 12:16 PM) Room air (01/18/21 10:00 AM) Blood pressure sites Arm, right (01/18/21 4:59 PM) Arm, right (01/18/21 12:16 PM) Arm, left (01/18/21 10:00 AM) Temperature Route Oral (01/18/21 4:59 PM) Oral (01/18/21 12:16 PM) Oral (01/18/21 10:00 AM) Dry Weight 153 kg (01/14/21 9:15 PM) Weight Obtained Via Bed scale (01/14/21 9:15 PM) Dry Weight Obtained Via Bed scale (01/14/21 9:15 PM) Social History Social History Type Response Smoking Status Never entered on: 05/15/18 Sex
--- OUTSIDE RECORDS SUMMARY | 2022-10-04 17:50 | XMS_ITS | Continuity of Care Document ---
Author Name Unknown Organization [facility] Address [address] [place] [address]- Care Team Providers Care Florist Helper Name Role Phone Matheus Yo MD Primary Care Physician [phone] Encounter [facility] Date(s): 01/31/19 - 05/31/19 [facility] Adult [address] [place] [address]- [facility] Attending Physician: Matheus Yo MD Allergies, Adverse Reactions, Alerts Substance Reaction Severity Status clindamycin Hives Active penicillin rash Active aspirin Active Bee Stings Active Contrast Dye urticaria Active Latex anaphylaxis Active antivenin (black spider) Active Immunizations Given and Recorded Vaccine Date Status Refusal Reason influenza virus vaccine, inactivated 1 05/15/18 Gi kyle tetanus/diphtheria/pertussis, acel(Tdap) 05/07/09 Given 1Result Comment: [05/15/2018] 60208-638-65 Medications atorvastatin 20 mg oral tablet 1 tablet = 20 mg, By Mouth, Daily, # 90 tablet, 3 Refills, Soft Stop, 03/14/19 13:58:57 EDT Start Date: 03/14/19 Status: Ordered clopidogrel 75 mg oral tablet 75 mg, 1, tablet, By Mouth, Daily, # 30 tablet, Refills 5, Tot. Refills 5, Maintenance, 01/29/19 17:13:14 EDT, Route to Pharmacy Electronically, [id number], [facility] Start Date: [...] Gm, 0 Refills, Maintenance, 05/23/18 10:06:41 EST, [place], 1 sprays Nares, Both 2 times a day Start Date: 05/23/18 Status: Ordered furosemide 40 mg oral tablet 40 mg, 1, tablet, By Mouth, 2 times a day, # 180 tablet, Refills 3, Tot. Refills 3, Maintenance, 03/14/19 13:59:16 EDT, Route to Pharmacy Electronically, [id number], [facility] Start Date: 03/14/19 Status: Ordered gabapentin 600 mg oral tablet 1 tablet = 600 mg, By Mouth, 3 times a day, # 270 tablet, 0 Refills, Maintenance, 05/21/19 0:47:29 EST, Tablet Start Date: 05/21/19 Status: Ordered hydrOXYzine hydrochloride 25 mg oral tablet 1 tablet = 25 mg, By Mouth, 3 times a day, PRN as needed for anxiety, # 90 tablet, 11 Refills, Maintenance, 03/14/19 13:57:59 EDT, Tablet Start Date: 03/14/19 Status: Ordered isosorbide mononitrate 60 mg oral tablet, extended release 60 mg, 1, tablet, By Mouth, Daily in AM, # 90 tablet, Refills 3, Tot. Refills 3, Soft Stop, 12/28/18 15:10:14 EDT, Route to Pharmacy Electronically, [id number], [id number] Start Date: 12/28/18 Status: Ordered lidocaine 5% topical film APPLY ONE PATCH TO THE KNEE AND APPLY ONE PATCH TO THE LOWER BACK DAILY UTD. Start Date: 06/01/18 Status: Ordered lisinopril 40 mg oral tablet See Instructions, # 30 tablet, Refills 5 Tot. 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
--- OUTSIDE RECORDS SUMMARY | 2022-10-04 17:50 | XMS_ITS | Continuity of Care Document ---
Author Name Unknown Organization [facility] ter Address [address] [place] [address]- Care Team Providers Care Biostatistics Professor Name Role Phone Tal WILKINS, Brown Paz Primary Care Physician Encounter [facility] [place] Date(s): 08/17/21 - 08/22/[address] [address]- Discharge Disposition: A-D/C Home Attending Physician: Emanuel Morales MD Admitting Physician: Debra Woodard MD Referring Physician: Not on Staff, Referring [...] Reason: Med Not Available 2Result Comment: [05/15/2018] 50781-044-51 3Result Comment: [id number] 4Result Comment: [id number] Medications acetaminophen 325 mg oral tablet 650 [...] Start Date: 02/23/21 Status: Ordered Cardizem CD 180 mg/24 hours oral capsule, extended release 360 mg, CD Capsule, By Mouth, Hold for: BP< 100 , HR< 60, 08/22/21 9:00:00 EDT Start Date: 08/22/21 Stop Date: 08/22/21 Status: Completed Cardizem CD 360 mg/24 hours [...] Gm, 11 Refills, Maintenance, 07/08/20 16:47:00 EST, [place], [facility], 1 sprays [...] Details, Route to Pharmacy Electronically, [facility], 190, cm, 07/27/21 12:49... Start Date: 07/30/21 Status: Ordered gabapentin 300 mg oral capsule 300 mg, Capsule, By Mouth, 08/22/21 15:00:00 EDT Start Date: 08/22/21 Stop Date: 08/22/21 Status: Completed hydrOXYzine hydrochloride 25 mg oral [...] Maintenance, 07/21/21 11:47:00 EST, Solution, [facility], Partial fill upon patient request if [...] Date: 07/30/21 Stop Date: 08/27/21 Status: Ordered oxyCODONE 5 mg oral tablet 5 mg, Tablet, By Mouth, 2 times a day, Hold for: PT IS DROWSY, RR < 10, PRN for Pain , Severe, Routine, 08/18/21 0:37:00 EDT Start Date: 3/15/22 Stop Date: 08/23/21 Status: Discontinued phenytoin 100 mg oral capsule, extended release [...] 04/02/21 8:22:00 EDT, Route to Pharmacy Electronically, [facility], 190, cm, 01/23/21 8:35:00 EDT, Height, 153, kg, 01/14/21... Start Date: 04/02/21 Status: Ordered ProAir HFA 90 mcg/inh inhalation aerosol 2 puffs, Inhalation, Every 4 hours, PRN Wheezing/Shortness of Breath, # 1 each, 5 Refills, Maintenance, 06/27/20 16:56:00 EST, [facility], Partial fill upon patient request [...] EDT,Dry Weight Start Date: 02/23/21 Status: Ordered Toprol XL 25 mg oral tablet, extended release 25 mg, XL Tablet, By Mouth, Hold for: BP< 100, HR < 60, 08/22/21 9:00:00 EDT Start Date: 08/22/21 Stop Date: 08/22/21 Status: Completed torsemide 20 mg oral tablet [...] peripheral neuropath y - NOS(Confirmed) Active senior care prescription benzo diazepine use(Confirmed) Active Limited mobility(Confirmed) Active Severe obesity(Confirmed) Active Non-insulin dependent type 2 diabetes mellitus(Confirmed) Active Results Radiology Reports * Exam Date Time Procedure Performing Provider Status 08/20/21 4:51 PM Chest Portable Sintia Perez (Verified) Notes: (Chest Portable) Reason For Exam: Pleuritic Pain RESULT: Chest Portable AP upright portable chest dated August 20, 2021 at 1643 hours. Comparison films are from August 17, 2021. HISTORY: Pleuritic pain. FINDINGS: The cardiac silhouette is at the upper limits of normal for size and has decreased from the prior study. Central pulmonary vascular congestion has improved. Bilateral infiltrates have improved. Visualized osseous structures are unremarkable. IMPRESSION: Improving aeration bilaterally. Examination 82590. Thank you for allowing me to participate in the care of this patient. WSN: [id number] Ordering Physician: Stephan Bello Dictated By: Nitin Curry MD Dictated Date/Time: 08/20/21 4:52 pm Reviewed By: Nitin Curry MD Signed By: Nitin Curry MD Signed Date/Time: 08/20/21 4:52 pm Transcribed By: LEATHA Transcribed Date/Time: 08/20/21 4:52 pm * Exam Date Time Procedure Performing Provider Status 08/17/21 4:29 PM Chest 2 Views Frontal and Lat Andriy Roberson (Verified) Notes: (Chest 2 Views Frontal and Lat) Reason For Exam: Chest Pain;Other: RESULT: Chest 2 Views Frontal and Lat Chest 2 Views Frontal and Lat Hx of Present Illness: Patient cc of left sided CP and le edema.; Reason: Other:; Chest Pain; Clinical Question(s): CHF COMPARISON: 07/18/2021. FINDINGS: LINES AND TUBES: The left pleural tube has been removed since the prior examination. LUNGS AND PLEURA: Clear lungs. There may be mild pulmonary vascular prominence.. There is increasing left pleural effusion and a small persistent right pleural effusion. No pneumothorax. HEART, MEDIASTINUM AND NNAMDI: Probable top normal heart size. Normal upper mediastinal and hilar contour. BONES AND SOFT TISSUES: No acute abnormality. Moderate obesity. IMPRESSION: Decreasing left pleural effusion with small residual. Persistent small right pleural effusion.? Mild pulmonary vascular congestion. WSN: [id number] Ordering Physician: Kaitlyn Morse MD Dictated By: Alexandre Albarran MD, V Dictated Date/Time: 08/17/21 4:36 pm Reviewed By: Alexandre Albarran MD, V Signed By: Alexandre Albarran MD, V Signed Date/Time: 08/17/21 4:36 pm Transcribed By: LEATHA Transcribed Date/Time: 08/17/21 4:34 pm Vital Signs Most recent to oldest [Reference Range]: 1 2 3 Height 191 cm (08/22/21 2:19 PM) 191 cm (08/22/21 8:37 AM) 191 cm (08/22/21 2:53 AM) Weight 157.7 kg (08/22/21 6:34 AM) 160 kg (08/21/21 8:38 AM) 160 kg (08/21/21 6:24 AM) Oxygen Saturation [94-100 %] 93 % *L* (08/22/21 2:19 PM) 95 % (08/22/21 8:37 AM) 95 % (08/22/21 2:53 AM) Pulse Rate [55-90 bpm] 78 bpm (08/22/21 2:19 PM) 74 bpm (08/22/21 10:35 AM) 74 bpm (08/22/21 10:30 AM) Body Mass Index [18.5-24.99] 46.19 *>HHI* (08/18/21 7:45 PM) 46.11 *>HHI* (08/18/21 4:32 PM) 46.11 *>HHI* (08/18/21 2:37 PM) Blood Pressure [90-138/55-84 mm Hg] 124/79mm Hg (08/22/21 2:19 PM) 147/60mm Hg *H* (08/22/21 10:35 AM) 147/60mm Hg *H* (08/22/21 10:30 AM) Respiratory Rate [16-30 br/min] 18 br/min (08/22/21 4:37 PM) 20 br/min (08/22/21 2:19 PM) 18 br/min (08/22/21 10:35 AM) Temperature [96.8-100.4 DegF] 97.7 DegF (08/22/21 2:19 PM) 98.4 DegF (08/22/21 8:37 AM) 97.8 DegF (08/22/21 2:53 AM) Liters per Minute 2 L/min (08/21/21 7:24 AM) 2 L/min (08/21/21 2:26 AM) 2 L/min (08/20/21 7:00 PM) Mode of Delivery (Oxygen) Room air (08/22/21 2:19 PM) Room air (08/22/21 8:37 AM) Room air (08/22/21 2:53 AM) Blood pressure sites Arm, left (08/22/21 2:19 PM) Arm, left (08/22/21 8:37 AM) Arm, left (08/22/21 2:53 AM) Temperature Route Oral (08/22/21 2:19 PM) Oral (08/22/21 8:37 AM) Temporal (08/22/21 2:53 AM) Dry Weight 168.5 kg (08/18/21 7:45 PM) 168.2 kg (08/18/21 4:32 PM) 168.2 kg (08/18/21 2:37 PM) Weight Obtained Via Bed scale (08/20/21 5:49 AM) Bed scale (08/19/21 5:36 AM) Bed scale (08/18/21 7:45 PM) Dry Weight Obtained Via Bed scale (08/18/21 7:45 PM) Social History Social History Type Response Smoking Status Never entered on: 05/15/18 Sex
--- OUTSIDE RECORDS SUMMARY | 2022-10-04 17:50 | XMS_ITS | Continuity of Care Document ---
Author Name Unknown Organization [facility] Address [address] [place] [address]- Care Team Providers Care Dining Room Attendant Name Role Phone Tal WILKINS, Brown Paz Primary Care Physician Encounter [facility] Date(s): 10/27/21 - 11/26/21 [facility] Adult [address] [place] [address]- Allergies, Adverse Reactions, Alerts Substance Reaction Severity [...] Reason: Med Not Available 2Result Comment: [05/15/2018] 26371-752-62 3Result Comment: [id number] 4Result Comment: [id number] Medications acetaminophen 325 mg oral tablet 650 [...] Gm, 11 Refills, Maintenance, 07/08/20 16:47:00 EST, [place], [facility], 1 sprays [...] Details, Route to Pharmacy Electronically, [facility], 190, cm, 07/27/21 12:49... Start Date: 07/30/21 Status: Ordered hydrOXYzine hydrochloride 25 mg oral tablet 1 tablet, By Mouth, 3 times a day, BUBBLE PACK, # 84 tablet, 5 Refills, Maintenance, 07/30/21 9:02:00 EST, [facility], 190, cm, 07/27/21 12:49:00 EST, [...] 0 Refills, Maintenance, 07/21/21 11:47:00 EST, Solution, [facility], Partial fill upon patient [...] COMMUNICATE SUGARS WITH PCP TO TITRATE LANTUS. [phone], 08/28... Start Date: 08/28/21 Status: Ordered One [...] 168 capsule, 5 Refills, 09/15/21 5:56:00 EDT, [facility], 191, cm, 08/28/21 11:32:00 EDT, Height, 168.5, kg, 08/18/21 22:23:00 EDT... Start Date: 09/15/21 Status: Ordered prazosin 5 mg oral capsule 5 mg, 1, capsule, By Mouth, Daily at bedtime, BUBBLE PACK, # 28 capsule, Refills 4, Tot. Refills 4,Maintenance, 04/02/21 8:22:00 EDT, Route to Pharmacy Electronically, [facility], 190, cm, 01/23/21 8:35:00 EDT, Height, 153, kg, 01/14/21... 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
--- OUTSIDE RECORDS SUMMARY | 2022-10-04 17:50 | XMS_ITS | Continuity of Care Document ---
Author Name Unknown Organization [facility] ter Address [address] [place] [address]- Care Team Providers Care Heel Gouger Name Role Phone Tal WILKINS, Brown Paz Primary Care Physician Encounter [facility] [place] Date(s): 02/07/22 - 02/11/[address] [address] Encounter Diagnosis Diabetes mellitus with neuropathy(Discharge Diagnosis) - 02/07/22 Epilepsy(Discharge Diagnosis) - 02/07/22 Hypertension(Discharge Diagnosis) - 02/07/22 Hyperlipidemia(Discharge Diagnosis) - 02/07/22 Morbid obesity with BMI of 50.0-59.9, adult(Discharge Diagnosis) - 02/07/22 Paroxysmal A-fib(Discharge Diagnosis) - 02/07/22 Pulmonary hypertension(Discharge Diagnosis) - 02/07/22 (HFpEF) heart failure with preserved ejection fraction(Discharge Diagnosis) - 02/08/22 Discharge Disposition: A-D/C Home Attending Physician: Jose Finn Sr, MD Admitting Physician: Milly Mancilla MD Referring Physician: Not on Staff, Referring MD Allergies, Adverse Reactions, Alerts Substance Reaction Severity Status clindamycin Hives Active penicillin rash Active Contrast Dye urticaria Active antivenin (black spider) Active Bee Stings Active Latex anaphylaxis Active Immunizations Given and [...] Reason: Med Not Available 2Result Comment: [05/15/2018] 13939-921-19 3Result Comment: [id number] 4Result Comment: [id number] Medications apixaban 5 mg oral tablet 1 tablet = 5 mg, By Mouth, 2 times a day, # 60 tablet, 11 Refills, Maintenance, 05/25/21 17:01:00 EST, Tablet, [facility], Partial fill upon patient request if the prescription is for a schedule II opioid drug., 190, cm, 04/03/21 10:25:00... Start Date: 05/25/21 Stop Date: 05/20/22 Status: Ordered aspirin 81 mg oral delayed release tablet 81 mg, By Mouth, Daily, # 30 tablet, Refills 0, Tot. Refills 0, Maintenance, 02/11/22 11:19:00 EDT,Route to Pharmacy Electronically, [facility], Partial fill upon patient request if the prescription is for a schedule II opioid drug., 19... Start Date: 02/11/22 Status: Ordered Bariatric wheelchair with standard leg rests Bariatric wheelchair with standard leg rests, See Instructions, # 1 each, Refills 0, Tot. Refills 0, Maintenance, 22 x 16 standard bariatric wheelchair wt 157.7 ht 191 cm Dx: G89.4, 189, E66.01, 127.20 nessa 99 MO, 12/18/21 14:53:00 EDT, Supply Start Date: 12/18/21 Status: Ordered Cardizem CD 180 mg/24 hours oral capsule, extended release 360 mg, CD Capsule, By Mouth, hold if SBP <100 or HR <65, 02/11/22 9:00:00 EDT Start Date: 02/11/22 Stop Date: 02/11/22 Status: Completed Cardizem CD 360 mg/24 hours oral capsule, extended release 1 capsule = 360 mg, By Mouth, Daily, # 90 capsule, 3 Refills, Maintenance, 10/16/21 4:17:00 EDT[facility], Partial fill [...] Dry Weight Start Date: 07/21/21 Status: Ordered doxycycline hyclate 100 mg oral tablet = 100 mg, By Mouth, 2 times a day, for 7 days, # 14 tablet, 0 Refills, Acute 02/18/22 11:20:00 EDT,02/11/22 11:20:00 EDT, Tablet, [facility], Partial fill upon patient request if the prescription is for a schedule II opioid drug., 191,... Start Date: 02/11/22 Stop Date: 02/18/22 Status: Ordered Flonase 50 mcg/inh nasal spray 1 sprays, Nares, Both, 2 times a day, # 16 Gm, 11 Refills, Maintenance, 07/08/20 16:47:00 EST, [place], [facility], 1 sprays [...] patient request... Start Date: 12/11/21 Status: Ordered gabapentin 400 mg oral capsule 400 mg, Capsule, By Mouth, 02/11/22 9:00:00 EDT Start Date: 02/11/22 Stop Date: 02/11/22 Status: Completed hydrOXYzine hydrochloride 25 mg oral [...] 0 Refills, Maintenance, 07/21/21 11:47:00 EST, Solution, [facility], Partial fill upon patient [...] Refills, Maintenance, 02/05/22 11:34:00 EDT, [facility], 191, cm, 02/02/22 15:50:00 EDT, Height, 168.5, kg, 08/18/21 22:23:00 EDT, Dry Weight Start Date: 02/05/22 Status: Ordered LORazepam 2 mg oral tablet 1 tablet = 2 mg, By Mouth, 3 times a day, PRN for anxiety, # 90 tablet, 2 Refills, Maintenance, 06/11/21 16:39:00 EST, Tablet, [facility], 190, cm, 04/03/21 10:25:00 EDT, Height, 153, kg, 01/14/21 23:22:00 EDT, Dry Weight Start Date: 06/11/21 Status: Ordered metFORMIN 1000 mg oral tablet 1 tablet, By Mouth, Daily in AM, BUBBLE PACK, # 28 tablet, 1 Refills, Maintenance, 01/04/22 10:44:00 EDT, [facility], 191, cm, 12/29/21 15:04:00 EDT, Height, 168.5, kg, 08/18/21 22:23:00 EDT, Dry Weight Start Date: 01/04/22 Status: Ordered metoprolol 50 mg oral tablet, extended release 50 mg, XL Tablet, By Mouth, hold if HR <60 or SBP <100, 02/11/22 9:00:00 EDT Start Date: 02/11/22 Stop Date: 02/11/22 Status: Completed Metoprolol Succinate ER 50 mg oral tablet, [...] COMMUNICATE SUGARS WITH PCP TO TITRATE LANTUS. [phone], 08/28... 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 benzo diazepine use(Confirmed) Active Limited mobility(Confirmed) Active Severe obesity(Confirmed) Active Non-insulin dependent type 2 diabetes mellitus(Confirmed) Active Diagnosis Diagnosis Type Effective Dates Health Status Clinical Service Informant Diabetes mellitus with neuropathy Discharge Diagnosis 02/07/22 Epilepsy Discharge Diagnosis 02/07/22 Hypertension Discharge Diagnosis 02/07/22 Hyperlipidemia Discharge Diagnosis 02/07/22 Morbid obesity with BMI of 50.0-59.9, adult Discharge Diagnosis 02/07/22 Paroxysmal A-fib Discharge Diagnosis 02/07/22 Pulmonary hypertension Discharge Diagnosis 02/07/22 (HFpEF) heart failure with preserved ejection fraction Discharge Diagnosis 02/08/22 Results Radiology Reports * Exam Date Time Procedure Performing Provider Status 02/05/22 1:03 PM Chest Portable Wilmer , Jaquelin; Auth (Ve rified) Notes: (Chest Portable) Reason For Exam: Shortness of Breath RESULT: Chest Portable Chest Portable HX OF PRESENT ILLNESS: pt reports CP SOB intermittently for the past week with associated nvd. b l LE edema. redness new wound to RLE. Per pt blood glucoses have been uncontrolled. got ASA nitro by EMS; Reason: Shortness of Breath; Clinical Question(s): CHF / CHF COMPARISON: 08/20/2021 FINDINGS: LINES AND TUBES: None. LUNGS AND PLEURA: Clear lungs. Normal pulmonary vascularity. Right suprahilar opacity has been present and not significantly changed from multiple prior studies dating back at least 01/15/2021, likely represents confluence of shadows. No pleural effusion. No pneumothorax. HEART, MEDIASTINUM AND NNAMDI: Heart is normal in size. Normal mediastinal and hilar contour. BONES AND SOFT TISSUES: No acute abnormality. IMPRESSION: No evidence of acute abnormality. WSN: [id number] Ordering Physician: Nadine Potter Dictated By: Emanuel Bennett MD Dictated Date/Time: 02/05/22 1:10 pm Reviewed By: Emanuel Bennett MD Signed By: Emanuel Bennett MD Signed Date/Time: 02/05/22 1:10 pm Transcribed By: LEATHA Transcribed Date/Time: 02/05/22 1:09 pm Vital Signs Most recent to oldest [Reference Range]: 1 2 3 Height 191 cm (02/11/22 11:45 AM) 191 cm (02/11/22 7:44 AM) 191 cm (02/11/22 4:44 AM) Weight 170 kg (02/07/22 7:54 AM) 170 kg (02/05/22 8:05 PM) Oxygen Saturation [94-100 %] 99 % (02/11/22 11:45 AM) 99 % (02/11/22 7:44 AM) 100 % (02/11/22 4:44 AM) Pulse Rate [55-90 bpm] 85 bpm (02/11/22 11:45 AM) 56 bpm (02/11/22 7:56 AM) 56 bpm (02/11/22 7:55 AM) Body Mass Index [18.5-24.99] 46.6 *>HHI* (02/05/22 8:05 PM) Blood Pressure [90-138/55-84 mm Hg] 100/54mm Hg (02/11/22 11:45 AM) 98/53mm Hg (02/11/22 7:56 AM) 98/53mm Hg (02/11/22 7:55 AM) Respiratory Rate [16-30 br/min] 18 br/min (02/11/22 11:45 AM) 18 br/min (02/11/22 8:53 AM) 18 br/min (02/11/22 7:53 AM) Temperature [96.8-100.4 DegF] 97.7 DegF (9/8/22 11:45 AM) 97.5 DegF (02/11/22 7:44 AM) 97.5 DegF (02/11/22 4:44 AM) Liters per Minute 3 L/min (02/11/22 11:45 AM) 3 L/min (02/11/22 7:44 AM) 2 L/min (02/11/22 12:30 AM) Mode of Delivery (Oxygen) Nasal cannula (02/11/22 11:45 AM) Nasal cannula (02/11/22 7:44 AM) Room air (02/11/22 4:44 AM) Blood pressure sites Arm, left (02/11/22 11:45 AM) Arm, left (02/11/22 7:44 AM) Arm, left (02/11/22 4:44 AM) Temperature Route Oral (02/11/22 11:45 AM) Oral (02/11/22 7:44 AM) Oral (02/11/22 4:44 AM) Dry Weight 170 kg (02/05/22 8:05 PM) Weight Obtained Via Bed scale (02/05/22 8:05 PM) Social History Social History Type Response Smoking Status Never entered on: 05/15/18 Sex Note * BHSPowerscribe , CIS S: TRANSCRIBE Sabrina WILKINS, Emanuel S: VERIFY Event Display: Result: Authored Date: Chest Portable HX OF PRESENT ILLNESS: pt reports CP SOB intermittently for the past week with associated nvd. b l LE edema. redness new wound to RLE. Per pt blood glucoses have been uncontrolled. got ASA nitro by EMS; Reason: Shortness of Breath; Clinical Question(s): CHF / CHF COMPARISON: 08/20/2021 FINDINGS: LINES AND TUBES: None. LUNGS AND PLEURA: Clear lungs. Normal pulmonary vascularity. Right suprahilar opacity has been present and not significantly changed from multiple prior studies dating back at least 01/15/2021, likely represents confluence of shadows. No pleural effusion. No pneumothorax. HEART, MEDIASTINUM AND NNAMDI: Heart is normal in size. Normal mediastinal and hilar contour. BONES AND SOFT TISSUES: No acute abnormality. IMPRESSION: No evidence of acute abnormality. WSN: [id number] Ordering Physician: Nadine Potter Dictated By: Emanuel Bennett MD Dictated Date/Time: 02/05/22 1:10 pm Reviewed By: Emanuel Bennett MD Signed By: Emanuel Bennett MD Signed Date/Time: 02/05/22 1:10 pm Transcribed By: LEATHA Transcribed Date/Time: 02/05/22 1:09 pm Care Team Personnel Name: Tal WILKINS, Brown Paz Address: [address] [place] [id number]
--- OUTSIDE RECORDS SUMMARY | 2022-10-04 17:50 | XMS_ITS | Continuity of Care Document ---
Author Name Unknown Organization [facility] Address [address] [place] [address]- Care Team Providers Care Postdoctoral Fellow Name Role Phone Brown Parada MD Primary Care Physician [phone] [place] [facility] [place] 12/17/21 [facility] [address] [place] [address]- Attending Physician: Brown Parada MD Allergies, Adverse Reactions, Alerts Substance Reaction Severity Status clindamycin Hives Active penicillin rash Active Bee Stings Active antivenin (black spider) Active Latex anaphylaxis Active aspirin Active Contrast Dye urticaria Active Immunizations Given [...] Reason: Med Not Available 2Result Comment: [05/15/2018] 36270-432-89 3Result Comment: [id number] 4Result Comment: [id number] Medications acetaminophen 325 mg oral tablet 650 [...] Dry Weight Start Date: 02/23/21 Status: Ordered DeltLinea Cozmo Glucometer See Instructions, # 1 each, [...] Gm, 11 Refills, Maintenance, 07/08/20 16:47:00 EST, [place], [facility], 1 sprays [...] Dry Weight Start Date: 07/30/21 Status: Ordered Imodium A-D 2 mg oral [...] 0 Refills, Maintenance, 07/21/21 11:47:00 EST, Solution, [facility], Partial fill upon patient request if the prescriptionis for a schedule II opioid drug., 190, cm, ... Start Date: 07/21/21 Status: Ordered LORazepam 2 mg oral tablet 1 tablet = 2 mg, By Mouth, 3 times a day, PRN for anxiety, # 90 tablet, 2 Refills, Maintenance, 06/11/21 16:39:00 EST, Tablet, [facility], 190, cm, 04/03/21 10:25:00 EDT, [...] COMMUNICATE SUGARS WITH PCP TO TITRATE LANTUS. [phone], 08/28... Start Date: 08/28/21 Status: Ordered One [...] 5 Refills, 09/15/21 5:56:00 EDT, [facility], 191, cm, 08/28/21 11:32:00 EDT, Height, 168.5, kg, 08/18/21 22:23:00 EDT... Start Date: 09/15/21 Status: Ordered prazosin 5 mg oral capsule 5 mg, 1, capsule, By Mouth, Daily at bedtime, BUBBLE PACK, # 28 capsule, Refills 4, Tot. 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 benzo diazepine use(Confirmed) Active Limited mobility(Confirmed) Active Severe obesity(Confirmed) Active Non-insulin dependent type 2 diabetes mellitus(Confirmed) Active Vital Signs Most recent to oldest [Reference Range]: 1 2 Height 191 cm (12/10/21 10:57 AM) 191 cm (12/10/21 10:53 AM) Oxygen Saturation [94-100 %] 93 % *L* (12/10/21 10:53 AM) Pulse Rate [55-90 bpm] 64 bpm (12/10/21 10:53 AM) Blood Pressure [90-138/55-84 mm Hg] 145/ 77mm Hg *H* (12/10/21 10:57 AM) 158/89mm Hg *H* (12/10/21 10:53 AM) Temperature [96.8-100.4 DegF] 98.1 DegF (12/10/21 10:53 AM) Mode of Delivery (Oxygen) Room air (12/10/21 10:53 AM) Blood pressure sites Arm, left (12/10/21 10:57 AM) Arm, left (12/10/21 10:53 AM) Temperature Route Oral (12/10/21 10:53 AM) Social History Social History Type Response Smoking Status Never entered on: 05/15/18 Sex
--- OUTSIDE RECORDS SUMMARY | 2022-10-04 17:50 | XMS_ITS | Continuity of Care Document ---
Author Name Unknown Organization [facility] Address [address] [facility] [address] [place] [address]- Care Team Providers Care Auto Transport Driver Name Role Phone Tal WILKINS, Brown Paz Primary Care Physician Encounter [facility] Date(s): 03/03/22 - 04/02/22 [facility] [address] [place] [address]- Attending Physician: Raji Shoemaker Admitting Physician: AdmtrRaji [...] Reason: Med Not Available 2Result Comment: [05/15/2018] 74718-372-03 3Result Comment: [id number] 4Result Comment: [id number] Medications apixaban 5 mg oral tablet 1 [...] Gm, 11 Refills, Maintenance, 07/08/20 16:47:00 EST, [place], [facility], 1 sprays [...] 04/02/22 5:55:00 EDT, Route to Pharmacy Electronically, [email or web address], 191, cm, 02/11/22 11:45:00 EDT, Height, 170, kg, 02/05/22 22:35:00 EDT, . Start Date: 04/02/22 Status: Ordered hydrOXYzine hydrochloride 25 mg oral tablet 1 tablet, By Mouth, 3 times a day, # 84 tablet, 5 Refills, [facility], 191, cm, 12/10/21 10:57:00 EDT, [...] 0 Refills, Maintenance, 07/21/21 11:47:00 EST, [place], [facility], Partial fill upon patient request [...] Refills, Maintenance, 03/09/22 9:51:00 EDT, [facility], 191, cm, 02/11/22 11:45:00 EDT, [...] COMMUNICATE SUGARS WITH PCP TO TITRATE LANTUS. [phone], 08/28... Start Date: 08/28/21 Status: Ordered One [...] senior care prescription benzodiazepine use Confirmed Active Limited mobility Confirmed Active Severe obesity Confirmed Active Non-insulin dependent type 2 diabetes mellitus Confirmed Active Social History Social History Type Response Smoking Status Never entered on: 05/15/18 Sex Patient Care team information Personnel Name: Tal WILKINS, Brown Paz Address: Address: [address] [place] [address]-
--- OUTSIDE RECORDS SUMMARY | 2022-10-04 17:50 | XMS_ITS | Continuity of Care Document ---
Author Name Unknown Organization [facility] Aung Address [address] [place] [address]- Care Team Providers Care Log Driver Name Role Phone Sanaz WILKINS, Matheus Castro Primary Care Physician [phone] Encounter [facility] Date(s): 02/26/20 - 03/27/20 [facility] Adult [address] [place] [address]- [facility] Attending Physician: AdmRaji lara Admitting Physician: AdmtrRaji Referring Physician: Admtr ArShahbaz [...] kyle tetanus/diphtheria/pertussis, acel(Tdap) 05/07/09 Given 1Result Comment: [id number] 2Result Comment: [id number] 3Result Comment: [05/15/2018] 52444-820-23 Medications acetaminophen 325 mg oral tablet 650 [...] EDT, Route to Pharmacy Electronically, [facility], 191, cm, 07/23/19 14:30:00EST, Height, 193.5, kg, 05/21/19 5:38:00 EST, Dry Weight Start Date: 10/25/19 Stop Date: 04/22/20 Status: Ordered cyanocobalamin 1000 mcg oral tablet, extended release 1 tablet = 1,000 mcg, By Mouth, Daily, # 30 tablet, 11 Refills, Maintenance, 02/21/20 10:38:00 EDT,[facility], 191, cm, 12/27/19 12:20:00 EDT, [...] Gm, 0 Refills, Maintenance, 05/23/18 10:06:41 EST, [place], 1 sprays Nares, Both 2 times a day Start Date: 05/23/18 Status: Ordered gabapentin 300 mg oral capsule 300 mg, 1, capsule, By Mouth, Daily, APPOINTMENT 02/26/20, # 10 capsule, Refills 0, Tot. Refills 0, Maintenance, 02/22/20 13:44:00 EDT, Route to Pharmacy Electronically, [facility], 191, cm, 12/27/19 12:20:00 EDT, [...] 02/20/20 14:34:00 EDT, Route to Pharmacy Electronically, [facility], 191, cm, 12/27/19 12:20:00 EDT, [...] Start Date: 08/06/19 Status: Ordered nystatin topical 625570 u/gm powder See Instructions, Topically 2 times [...] Maintenance,07/19/19 15:02:00 EST, Route to Pharmacy Electronically, [facility], 191, cm, 07/18/19 14:17:00 EST, Height, 193.5, kg, 05/21/19 5:38:00 E... Start Date: 07/19/19 Status: Ordered QUEtiapine 50 mg oral tablet 1 tablet = 50 mg, By Mouth, Daily, # 30 tablet, 5 Refills, Maintenance, 12/12/19 10:07:00 EDT, Tablet, [facility], 191, cm, 07/23/19 14:30:00 EST, Height, 193.5, kg, 05/21/19 5:38:00EST, Dry Weight Start Date: 12/12/19 Status: Ordered spironolactone 25 mg oral tablet 25 mg, 1, tablet, By Mouth, Daily, # 30 tablet, Refills 5, Tot. Refills 5, Maintenance, 02/19/20 9:52:00 EDT, Route to Pharmacy Electronically, [facility], 191, cm, 12/27/19 12:20:00EDT, Height, 193.5, kg, 05/21/19 5:38:00 EST, Dry Weight Start Date: 02/19/20 Status: Ordered traZODone 50 mg oral tablet 100 mg, 2, tablet, By Mouth, Daily at bedtime, # 60 tablet, Refills 5, Tot. Refills 5, Maintenance,02/01/20 10:29:00 EDT, Route to Pharmacy Electronically, [facility], 191, cm, 12/27/19 12:20:00 EDT, [...]
--- OUTSIDE RECORDS SUMMARY | 2022-10-04 17:50 | XMS_ITS | Continuity of Care Document ---
Author Name Unknown Organization [facility] Aung Address [address] [place] [address]- Care Team Providers Care Board Operator Name Role Phone Brown Parada MD Primary Care Physician [phone] Encounter [facility] Date(s): 08/19/22 - 09/25/22 [facility] Adult [address] [place] [address]- Attending Physician: Brown Parada MD Allergies, Adverse [...] Reason: Med Not Available 2Result Comment: [05/15/2018] 20493-280-20 3Result Comment: [id number] 4Result Comment: [id number] Medications albuterol CFC free 90 mcg/inh inhalation [...] capsule, 3 Refills, Maintenance, 10/16/21 4:17:00 [facility], Partial fill [...] Gm, 11 Refills, Maintenance, 07/08/20 16:47:00 EST, [place], [facility], 1 sprays [...] mL, 0 Refills, Maintenance, 08/16/22 3:50:00 EDT, Jeffery Freeman... 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 use Confirmed Active PTSD - Post-traumatic stress disorder Confirmed Active Limited mobility Confirmed Active Severe obesity Confirmed Active Non-insulin dependent type 2 diabetes mellitus Confirmed Active Social History Social History Type Response Smoking Status Never entered on: 05/15/18 Sex Patient Care team information Care Team Personnel Name: Tiki Kim RN Position: [facility] RN Member Role: Primary Care Nurse Name: Gladis Carrizales RN Position: [facility] RN Member Role: Primary Care Nurse Name: Ebony Santoyo RN Position: [facility] RN Member Role: Primary Care Nurse Name: Siobhan Ko RN Position: [facility] RN Member Role: Primary Care Nurse Name: Evette Marrero Position: [facility] RN Supv Member Role: Primary Care Nurse Name: Claude Zhao RN Position: [facility] RN Member Role: Primary Care Nurse Name: Aviva Howard RN Position: [facility] RN Member Role: Primary Care Nurse Name: Hilda Doyle RN Position: [facility] RN Supv Member Role: Primary Care Nurse Name: Kimmy Ahumada NP Position: [facility] Associate Professional Member Role: Primary Care Nurse Address: Address: [address] [place] [address]- [place] Name: Bruce Mccurdy MD Position: [facility] Renal MD Member Role: Lifetime Consulting Physician Address: Address: [address] [place] [address], [address] [facility] [place] [address]- Name: Regis Huang RN Position: [facility] RN Member Role: Primary Care Nurse Name: Miguelina Hallman RN Position: [facility] RN Member Role: Primary Care Nurse Name: Mirella Mabry RN Position: [facility] RN Member Role: Primary Care Nurse Name: Shelby Luna RN Position: [facility] RN Member Role: Primary Care Nurse Name: Sarina Camejo RN Position: [facility] RN Member Role: Primary Care Nurse Name: Lachelle Shine RN Position: [facility] RN Member Role: Primary Care Nurse Name: Leilani Lerma RN Position: [facility] HBO Wound Member Role: Primary Care Nurse Name: Sandrita Portillo LPN Position: [facility] RN Member Role: Primary Care Nurse Name: Corina Munoz RN Position: [facility] RN Member Role: Primary Care Nurse Name: Vania Hernandez Position: [facility] RN Member Role: Primary Care Nurse Name: Mukul Dougherty RN Position: [facility] RN Member Role: Primary Care Nurse Name: Hammad Gambino RN Position: [facility] RN Member Role: Primary Care Nurse Name: Kenia Rao RN Position: [facility] RN Member Role: Primary Care Nurse Name: Aamir Gutierrez RN Position: [facility] RN Member Role: Primary Care Nurse Name: Michele Villavicencio RN Position: [facility] RN Member Role: Primary Care Nurse Name: Brown Parada MD Position: [facility] Primary Care Physician Member Role: PCP Address: Address: [address] [place] [address]- [place] Name: Lionel Gu RN Position: [facility] RN Member Role: Primary Care Nurse Name: Emanuel Levin RN Position: [facility] RN Member Role: Primary Care Nurse Name: Charlette Lopez RN Position: [facility] RN Member Role: Primary Care Nurse Name: Melissa Khanna RN Position: [facility] RN Member Role: Primary Care Nurse Name: Elena Sheikh RN Position: [facility] RN Member Role: Primary Care Nurse Name: Theodora Serna RN Position: [facility] PCO RN Member Role: Primary Care Nurse Name: Yang Silva RN Position: [facility] RN Member Role: Primary Care Nurse Name: Xiomara Mario RN Position: [facility] RN Member Role: Primary Care Nurse Name: Suly Morales RN Position: [facility] RN Member Role: Primary Care Nurse Name: Jazmin Quach RN Position: [facility] RN Member Role: Primary Care Nurse Name: Meg Norman RN Position: [facility] RN Member Role: Primary Care Nurse Name: Latanya Garza RN Position: [facility] RN Member Role: Primary Care Nurse Name: Jaimie Gibson RN Position: [facility] RN Member Role: Primary Care Nurse Name: Buffy Schroeder RN Position: [facility] RN Member Role: Primary Care Nurse Name: Lidia Bacon RN Position: [facility] RN Member Role: Primary Care Nurse Name: Carmen Bruner RN Position: [facility] RN Member Role: Primary Care Nurse Name: Kirill Mccartney RN Position: [facility] RN Member Role: Primary Care Nurse Name: Chacha Hassan RN Position: [facility] RN Member Role: Primary Care Nurse Name: Earlene Grayson RN Position: [facility] SN RN Member Role: Primary Care Nurse Name: Cem Carroll MD Position: [facility] Renal MD Member Role: Lifetime Consulting Physician Address: Address: [address] [place] [address] [facility] [address] Name: Dmitry Chua RN Position: [facility] RN Member Role: Primary Care Nurse Name: Aretha Duke RN Position: [facility] RN Member Role: Primary Care Nurse Name: Shilpa Richardson RN Position: [facility] RN Member Role: Primary Care Nurse Name: Eusebia Hassan RN Position: [facility] RN Member Role: Primary Care Nurse Name: Arsalan Cai RN Position: [facility] RN Member Role: Primary Care Nurse Care Team Related Persons Name: JIMENEZ BRUNER Address: home [address] [place] [address] Name: ANYA DE JESUS Address: home [address] [place] [address]
--- OUTSIDE RECORDS SUMMARY | 2022-10-04 17:50 | XMS_ITS | Continuity of Care Document ---
Author Name Unknown Organization [facility] Address [address] [place] [address] D[address] [place] [address]- Care Team Providers Care Coverage Analyst Name Role Phone Sanaz WILKINS, Matheus Castro Primary Care Physician Encounter [facility] Date(s): 07/23/19 - 07/30/[address] [place] [address]- [facility] Attending Physician: Jong Miller MD Allergies, Adverse [...] kyle tetanus/diphtheria/pertussis, acel(Tdap) 05/07/09 Given 1Result Comment: [id number] 2Result Comment: [id number] 3Result Comment: [05/15/2018] 75975-160-21 Medications atorvastatin 20 mg oral tablet 1 tablet = 20 mg, By Mouth, Daily, # 90 tablet, 3 Refills, Soft Stop, 03/14/19 13:58:57 EDT Start Date: 03/14/19 Status: Ordered clopidogrel 75 mg oral tablet 75 mg, 1, tablet, By Mouth, Daily, # 30 tablet, Refills 5, Tot. Refills 5, Maintenance, 01/29/19 17:13:14 EDT, Route to Pharmacy Electronically, [id number], [facility] Start Date: [...] Gm, 0 Refills, Maintenance, 05/23/18 10:06:41 EST, [place], 1 sprays Nares, Both 2 times a [...] Maintenance, 07/18/2014:03:00 EST, Route to Pharmacy Electronically, [facility][id number], 191, cm, 07/18/19 14:17:00 EST, Height, 193.5, [...] 12/28/18 15:10:14 EDT, Route to Pharmacy Electronically, [id number], [facility] #[id number] Start Date: 12/28/18 Status: Ordered lidocaine 5% topical film APPLY ONE PATCH TO THE KNEE AND APPLY ONE PATCH TO THE LOWER BACK DAILY UTD. Start Date: 06/01/18 Status: Ordered lisinopril 40 mg oral tablet See Instructions, # 30 tablet, Refills 5 Tot. Refills 5, TAKE 1 TABLET BY MOUTH EVERY MORNING, [id number] Start Date: 01/02/19 Status: Ordered LORazepam 2 [...] Maintenance, 07/18/19 15:00:00 EST, Tablet, [facility], 191, cm, 07/18/19 14:17:00 EST, Height, 193.5, kg, 05/21/19 5:38:00EST, Dry Weight Start Date: 07/18/19 Status: Ordered spironolactone 25 mg oral tablet 25 mg, 1, tablet, By Mouth, Daily, # 90 tablet, Refills 3, Tot. Refills 3, Maintenance, 12/28/18 15:03:05 EDT, Route to Pharmacy Electronically, [id number], [id number] Start Date: 12/28/18 Status: Ordered traZODone 50 mg oral tablet 1-2 tablets, By Mouth, Daily at bedtime, PRN, Insomnia Start Date: 06/01/18 Status: Ordered traZODone 50 mg oral tablet 100 mg, 2, tablet, By Mouth, Daily at bedtime, # 60 tablet, Refills 5, Tot. Refills 5, Maintenance,07/24/19 11:40:00 EST, Route to Pharmacy Electronically, [facility], 191, cm, 07/23/19 14:30:00 EST, [...] oldest [Reference Range]: 1 Height 191 cm (07/23/19 2:30 PM) Weight 193.5 kg (07/23/19 2:30 PM) Pulse Rate [55-90 bpm] 84 bpm (07/23/19 2:30 PM) Body Mass Index [18.5-24.99] 53.04 *>HHI* (07/23/19 2:30 PM) Blood Pressure [90-138/55-84 mm Hg] 148/ 67mm Hg *H* (07/23/19 2:30 PM) Temperature [96.8-100.4 DegF] 97.6 DegF (07/23/19 2:30 PM) Blood pressure sites Arm, left (07/23/19 2:30 PM) Temperature Route Temporal (07/23/19 2:30 PM) Social History Social History Type Response Smoking Status Never entered on: 05/15/18 Sex
--- OUTSIDE RECORDS SUMMARY | 2022-10-04 17:50 | XMS_ITS | Continuity of Care Document ---
Author Name Unknown Organization [facility] Aung lt Address [address] [place] [address]- Care Team Providers Care Qa Tech Name Role Phone Tal WILKINS, Brown Paz Primary Care Physician [facility] Date(s): 07/01/22 - 07/31/22 [facility] Adult [address] [place] [address]- Allergies, Adverse Reactions, Alerts Substance Reaction Severity [...] Reason: Med Not Available 2Result Comment: [05/15/2018] 30749-739-57 3Result Comment: [id number] 4Result Comment: [id number] Medications albuterol CFC free 90 mcg/inh inhalation [...] Gm, 11 Refills, Maintenance, 07/08/20 16:47:00 EST, [place], [facility], 1 sprays [...] 04/02/22 5:55:00 EDT, Route to Pharmacy Electronically, [facility], 191, cm, 02/11/22 11:45:00 EDT, Height, 170, kg, 02/05/22 22:35:00 EDT, . Start Date: 04/02/22 Status: Ordered hydrOXYzine hydrochloride 25 mg oral tablet 1 tablet, By Mouth, 3 times a day, # 84 tablet, 5 Refills, Maintenance, 06/11/22 11:15:00 EST, [facility], 191, cm, 02/11/22 11:45:00 EDT, [...] COMMUNICATE SUGARS WITH PCP TO TITRATE LANTUS. [phone], 08/28... Start Date: 08/28/21 Status: Ordered One [...] capsule, 2 Refills, Maintenance, 05/17/22 11:00:00 EST, [facility], 191, cm, 02/11/22 11:45:00 EDT, [...] tablet, 5 Refills, Maintenance, 07/08/22 10:43:00 EST, [facility], 191, cm, 02/11/22 11:45:00 EDT, Height, 170, kg, 02/05/22 22:35:00 EDT, Dry Weight Start Date: 07/08/22 Status: Ordered Vitamin D3 2000 intl units oral tablet 1 tablet, By Mouth, Daily, # 28 tablet, 4 Refills, [facility], 191, cm, 08/28/21 11:32:00 EDT, [...] Painful peripheral neuropathy - NOS Confirmed Active residential prescription benzodiazepine use Confirmed Active Limited mobility Confirmed Active Severe obesity Confirmed Active Non-insulin dependent type 2 diabetes mellitus Confirmed Active Social History Social History Type Response Smoking Status Never entered on: 05/15/18 Sex Patient Care team information Care Team Personnel Name: All BOSS Gladis Loyolamagdaleno Position: [facility] RN Member Role: Primary Care Nurse Name: Ebony Santoyo RN Position: [facility] RN Member Role: Primary Care Nurse Name: Siobhan Ko RN Position: [facility] RN Member Role: Primary Care Nurse Name: Evette Marrero Position: [facility] RN Supv Member Role: Primary Care Nurse Name: Aviva Howard RN Position: [facility] RN Member Role: Primary Care Nurse Name: Hilda Doyle RN Position: [facility] RN Supv Member Role: Primary Care Nurse Name: Kimmy Ahumada NP Position: [facility] Associate Professional Member Role: Primary Care Nurse Address: Address: [address] [place] [address] Name: Bruce Mccurdy MD Position: [facility] Renal MD Member Role: Lifetime Consulting Physician Address: Address: [address] [place] [address], [address] [facility] [place] [place] [address] Name: Malika Richards RN Position: [facility] Fruit Dryer Member Role: Primary Care Nurse Name: JO GONZALEZ RN Position: [facility] RN Member Role: Primary Care Nurse Name: Shelby Luna RN Position: [facility] RN Member Role: Primary Care Nurse Name: Sarina Camejo RN Position: [facility] RN Member Role: Primary Care Nurse Name: Lachelle Shine RN Position: [facility] RN Member Role: Primary Care Nurse Name: Leilani Lerma RN Position: [facility] HBO Wound Member Role: Primary Care Nurse Name: Sandrita Portillo LPN Position: [facility] RN Member Role: Primary Care Nurse Name: Corina Munoz RN Position: [facility] RN Member Role: Primary Care Nurse Name: Vania Hernandez Position: [facility] RN Member Role: Primary Care Nurse Name: Mukul Dougherty RN Position: [facility] RN Member Role: Primary Care Nurse Name: Hammad Gambino RN Position: [facility] RN Member Role: Primary Care Nurse Name: Kenia Rao RN Position: [facility] RN Member Role: Primary Care Nurse Name: Michele Villavicencio RN Position: [facility] RN Member Role: Primary Care Nurse Name: Brown Parada MD Position: [facility] Primary Care Physician Member Role: PCP Address: Address: [address] [place] [address]- [place] Name: Charlette Lopez RN Position: [facility] RN Member Role: Primary Care Nurse Name: Elena Sheikh RN Position: [facility] RN Member Role: Primary Care Nurse Name: Theodora Serna RN Position: [facility] PCO RN Member Role: Primary Care Nurse Name: Yang Silva RN Position: [facility] RN Member Role: Primary Care Nurse Name: Xiomara Mario RN Position: [facility] RN Member Role: Primary Care Nurse Name: Meg Norman RN Position: [facility] RN Member Role: Primary Care Nurse Name: Latanya Garza RN Position: [facility] RN Member Role: Primary Care Nurse Name: aJimie Gibson RN Position: [facility] RN Member Role: Primary Care Nurse Name: Carmen Bruner RN Position: [facility] RN Member Role: Primary Care Nurse Name: Kirill Mccartney RN Position: [facility] RN Member Role: Primary Care Nurse Name: Chacha Hassan RN Position: [facility] RN Member Role: Primary Care Nurse Name: Earlene Grayson RN Position: [facility] SN RN Member Role: Primary Care Nurse Name: Cem Carroll MD Position: [facility] Renal MD Member Role: Lifetime Consulting Physician Address: Address: [address] [place] [address] [facility] [place] [address]- [place] Name: Eusebia Hassan RN Position: [facility] RN Member Role: Primary Care Nurse Care Team Related Persons Name: JIMENEZ BRUNER Address: home [address] [place] [address] Name: ANYA DE JESUS Address: home [address] [place] [address]
--- OUTSIDE RECORDS SUMMARY | 2022-10-04 17:50 | XMS_ITS | Continuity of Care Document ---
Author Name Unknown Organization [facility] lt Address [address] [place] [address]- Care Team Providers Care Engineering Psychologist Name Role Phone Tal WILKINS, Brown Paz Primary Care Physician En[place] [facility] [place](s): 10/15/21 - 11/14/21 [facility] Adult [address] [place] [address]- Allergies, Adverse Reactions, Alerts Substance Reaction Severity [...] Reason: Med Not Available 2Result Comment: [05/15/2018] 83762-482-53 3Result Comment: [id number] 4Result Comment: [id number] Medications acetaminophen 325 mg oral tablet 650 [...] Gm, 11 Refills, Maintenance, 07/08/20 16:47:00 EST, [place], [facility], 1 sprays [...] Details, Route to Pharmacy Electronically, [facility], 190, cm, 07/27/21 12:49... Start Date: 07/30/21 Status: Ordered hydrOXYzine hydrochloride 25 mg oral tablet 1 tablet, By Mouth, 3 times a day, BUBBLE PACK, # 84 tablet, 5 Refills, Maintenance, 07/30/21 9:02:00 EST, [facility], 190, cm, 07/27/21 12:49:00 EST, [...] 0 Refills, Maintenance, 07/21/21 11:47:00 EST, Solution, [facility] 3, Partial fill upon patient request [...] COMMUNICATE SUGARS WITH PCP TO TITRATE LANTUS. [phone], 08/28... Start Date: 08/28/21 Status: Ordered One [...] 168 capsule, 5 Refills, 09/15/21 5:56:00 EDT, [facility], 191, cm, 08/28/21 11:32:00 EDT, Height, 168.5, kg, 08/18/21 22:23:00 EDT... Start Date: 09/15/21 Status: Ordered prazosin 5 mg oral capsule 5 mg, 1, capsule, By Mouth, Daily at bedtime, BUBBLE PACK, # 28 capsule, Refills 4, Tot. Refills 4,Maintenance, 04/02/21 8:22:00 EDT, Route to Pharmacy Electronically, [facility], 190, cm, 01/23/21 8:35:00 EDT, Height, 153, kg, 01/14/21... 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
--- OUTSIDE RECORDS SUMMARY | 2022-10-04 17:51 | XMS_ITS | Continuity of Care Document ---
Author Name Unknown Organization [facility] ter Address [address] [place] [address]- Care Team Providers Care Line Welder Name Role Phone Tal WILKINS, Brown Paz Primary Care Physician Encounter [facility] Date(s): 03/02/22 - 04/07/[address] [id number] Attending Physician: Bala Walter MD Admitting Physician: Bala Walter MD Referring Physician: Miguel Prater MD Allergies, Adverse Reactions, Alerts Substance Reaction [...] Reason: Med Not Available 2Result Comment: [05/15/2018] 04195-907-97 3Result Comment: [id number] 4Result Comment: [id number] Medications apixaban 5 mg oral tablet 1 [...] Gm, 11 Refills, Maintenance, 07/08/20 16:47:00 EST, [place], [facility], 1 sprays [...] EDT, Route to Pharmacy Electronically, [email or web address], 191, cm, 02/11/22 11:45:00 EDT, Height, 170, kg, 02/05/22 22:35:00 EDT, . Start Date: 04/02/22 Status: Ordered hydrOXYzine hydrochloride 25 mg oral tablet 1 tablet, By Mouth, 3 times a day, # 84 tablet, 5 Refills, [email or web address], 191, cm, 12/10/21 10:57:00 EDT, [...] Refills, Maintenance, 07/21/21 11:47:00 EST, Solution, [facility] 3, Partial fill upon patient [...] COMMUNICATE SUGARS WITH PCP TO TITRATE LANTUS. [phone], 08/28... Start Date: 08/28/21 Status: Ordered nystatin topical 639887 u/gm powder 1 application, Topically, 3 times [...] peripheral neuropathy - NOS Confirmed Active senior living prescription benzodiazepine use Confirmed Active Limited mobility Confirmed Active Severe obesity Confirmed Active Non-insulin dependent type 2 diabetes mellitus Confirmed Active Social History Social History Type Response Smoking Status Never entered on: 05/15/18 Sex Patient Care team information Personnel Name: Brown Parada MD Address: Address: [address] [place] [id number]
--- OUTSIDE RECORDS SUMMARY | 2022-10-04 17:51 | XMS_ITS | Continuity of Care Document ---
Author Name Unknown Organization [facility] Aung Address [address] [place] [address]- Care Team Providers Care Dry Yard Worker Name Role Phone Sanaz WILKINS, Matheus Castro Primary Care Physician [place] [facility] [place] 01/18/21 [facility] Adult [address] [place] [address]- Allergies, Adverse Reactions, Alerts Substance Reaction Severity [...] kyle tetanus/diphtheria/pertussis, acel(Tdap) 05/07/09 Given 1Result Comment: [id number] 2Result Comment: [id number] 3Result Comment: [05/15/2018] [id number] Medications acetaminophen 325 mg oral tablet 650 mg, By Mouth, Every 4 hours, PRN, Refills 0, Maintenance, Pain , Mild, 12/12/19 13:05:00 EDT Start Date: 12/12/19 Status: Ordered apixaban 5 mg oral tablet 1 tablet = 5 mg, By Mouth, 2 times a day, # 60 tablet, 3 Refills, Maintenance, 01/13/21 15:09:00 EDT, Tablet, [facility], Partial fill upon patient request [...] Refills, Maintenance, 01/13/21 15:09:00 EDT, CR Capsule, [facility], Partial fill upon patient request if the prescription is for a schedule II opioid drug., 190, cm, 01/13/21 7:49:00... Start Date: 01/13/21 Stop Date: 03/14/21 Status: Ordered cefpodoxime 200 mg oral tablet 1 tablet = 200 mg, By Mouth, Every 12 hours, for 2 days, # 4 tablet, 0 Refills, Acute 01/20/21 11:40:00 EDT, 01/18/21 11:40:00 EDT, Tablet, [facility], Partial fill upon patient requestif the prescription is for a schedule II opioid ritchie... Start Date: 01/18/21 Stop Date: 01/20/21 Status: Ordered colchicine 0.6 mg oral tablet 0.6 mg, 1, tablet, By Mouth, 2 times a day, # 60 tablet, Refills 1, Tot. Refills 1, Maintenance, 01/13/21 15:09:00 EDT, Route to Pharmacy Electronically, [facility], Partial fill upon patient request [...] 01/13/21 15:09:00 EDT, Route to Pharmacy Electronically, [facility], Partial fill upon patient [...] 01/18/21 11:37:00 EDT, Route to Pharmacy Electronically, [facility], Partial fill upon patient request if the prescription is for a errol... Start Date: 01/18/21 Status: Ordered Flonase 50 mcg/inh nasal spray 1 sprays, Nares, Both, 2 times a day, # 16 Gm, 11 Refills, Maintenance, 07/08/20 16:47:00 EST, [place], [facility], 1 sprays [...] 01/18/21 11:37:00 EDT, Route to Pharmacy Electronically, [facility], Partial fill upon patient [...] 11 Refills, Maintenance, 08/08/20 12:45:00 EST, [facility], 191, cm, 06/24/20 13:40:00 EST, Height, 193.5, kg, 05/21/19 5:38:00 EST, Dry Weight Start Date: 08/08/20 Status: Ordered Metoprolol Succinate ER 50 mg oral tablet, extended release = 150 mg, By Mouth, Daily, # 150 each, 1 Refills, Soft Stop, 01/13/21 15:30:00 EDT, [facility], 190, cm, 01/13/21 7:49:00 EDT, Height, 170.4, kg, 12/31/20 8:52:00 EDT, Dry Weight Start Date: 01/13/21 Stop Date: 03/14/21 Status: Ordered phenytoin 100 mg oral capsule, extended release See Instructions, TAKE 2 CAPSULES BY MOUTH IN THE MORNING & TAKE 4 CAPSULES IN THE EVENING., # 180 Unknown, 3 Refills, Maintenance, [facility], 191, cm, 06/24/20 13:40:00 EST, Height, 193.5, kg, 05/21/19 5:38:00 EST, Dry Weight Start Date: 11/10/20 Status: Ordered prazosin 5 mg oral capsule 5 mg, 1, capsule, By Mouth, Daily at bedtime, # 30 capsule, Refills 5, Tot. Refills 5, Maintenance,07/19/19 15:02:00 EST, Route to Pharmacy Electronically, [facility], 191, cm, 07/18/19 14:17:00 EST, Height, 193.5, kg, 05/21/19 5:38:00 E... Start Date: 07/19/19 Status: Ordered ProAir HFA 90 mcg/inh inhalation aerosol 2 puffs, Inhalation, Every 4 hours, PRN Wheezing/Shortness of Breath, # 1 each, 5 Refills, Maintenance, 06/27/20 16:56:00 EST, [facility], Partial fill upon patient request [...] 5 Refills, Maintenance, 01/13/21 17:05:00 EDT, [facility], 190, cm, 01/13/21 7:49:00 EDT, Height, 170.4, kg, 12/31/20 8:52:00 EDT, Dry Weight Start Date: 01/13/21 Status: Ordered spironolactone 25 mg oral tablet See Instructions, TAKE ONE TABLET BY MOUTH EVERY DAY, # 30 tablet, Refills 2, Maintenance, Instructions Replace Required Details, Route to Pharmacy Electronically, [facility], 191, cm, 06/24/20 13:40:00 EST, Height, 193.5, kg, 05/21/19 5:... Start Date: 12/06/20 Status: Ordered torsemide 20 mg oral tablet 2 tablet = 40 mg, By Mouth, Daily, # 60 tablet, 1 Refills, Maintenance, 01/13/21 15:10:00 EDT, Tablet, [facility], Partial fill upon patient request if the prescription is for a schedule II opioid drug., 190, cm, 01/13/21 7:49:00 EDT, He... Start Date: 01/13/21 Stop Date: 03/14/21 Status: Ordered traZODone 50 mg oral tablet 100 mg, 2, tablet, By Mouth, Daily at bedtime, # 60 tablet, Refills 5, Tot. Refills 5, Maintenance,01/13/21 17:05:00 EDT, Route to Pharmacy Electronically, [facility], 190, cm, 01/13/21 7:49:00 EDT, [...]
--- OUTSIDE RECORDS SUMMARY | 2022-10-04 17:51 | XMS_ITS | Continuity of Care Document ---
Author Name Unknown Organization [facility] Aung Address [address] [place] [address]- Care Team Providers Care Skip Hoist Engineer Name Role Phone Sanaz WILKINS, Matheus Castro Primary Care Physician [phone] Encounter [facility] Date(s): 04/17/20 - 05/17/20 [facility] Adult [address] [place] [address]- Allergies, Adverse Reactions, Alerts Substance Reaction Severity [...] kyle tetanus/diphtheria/pertussis, acel(Tdap) 05/07/09 Given 1Result Comment: [id number] 2Result Comment: [id number] 3Result Comment: [05/15/2018] 62190-254-13 Medications acetaminophen 325 mg oral tablet 650 [...] 05/07/20 10:14:00 EST, Route to Pharmacy Electronically, [facility], 191, cm, 12/27/19 12:20:00 EDT, Height, 193.5, kg, 05/21/19 5:38:00 EST, Dry Weight Start Date: 05/07/20 Stop Date: 11/03/20 Status: Ordered cyanocobalamin 1000 mcg oral tablet, extended release 1 tablet = 1,000 mcg, By Mouth, Daily, # 30 tablet, 11 Refills, Maintenance, 02/21/20 10:38:00 EDT,[facility], 191, cm, 12/27/19 12:20:00 EDT, [...] 12/12/19 13:24:00 EDT, Route to Pharmacy Electronically, [facility], 191, cm, 07/23/2013:30:00 EST, Height, 193.5, kg, 05/21/19 5:38:00 EST,... Start Date: 12/12/19 Status: Ordered Flonase 50 mcg/inh nasal spray 1 sprays, Nares, Both, 2 times a day, # 16 Gm, 0 Refills, Maintenance, 05/23/18 10:06:41 EST, [place], 1 sprays Nares, Both 2 times a [...] EDT, Route to Pharmacy Electronically, [facility], 191, cm, 12/27/19 12:20:00 EDT, [...] 0 Refills, Maintenance, 02/22/20 13:44:00 EDT, Tablet, [facility], 191, cm, 12/27/19 12:20:00 EDT, Height, 193.5,kg, 05/21/19 5:38:00 EST, Dry Weight Start Date: 02/22/20 Status: Ordered loperamide 2 mg oral tablet 1 tablet = 2 mg, By Mouth, Every 4 hours, PRN as needed for loose stool, not to exceed 16 mg/day, #100 tablet, 0 Refills, Maintenance, 04/28/20 13:13:00 EST, Tablet, [facility], Partial fill upon patient request, 191, cm, 12/27/19 12:20:... Start Date: 04/28/20 Status: Ordered LORazepam 2 mg oral tablet 1 tablet = 2 mg, By Mouth, 3 times a day, PRN for anxiety, # 90 tablet, 2 Refills, Maintenance, 04/28/20 13:18:00 EST, Tablet, [facility], 191, cm, 12/27/19 12:20:00 EDT, [...] Start Date: 05/07/20 Status: Ordered nystatin topical 142088 u/gm powder See Instructions, Topically 2 times [...] 02/19/20 9:52:00 EDT, Route to Pharmacy Electronically, [facility], 191, cm, 12/27/19 12:20:00EDT, Height, 193.5, kg, 05/21/19 5:38:00 EST, Dry Weight Start Date: 02/19/20 Status: Ordered traZODone 50 mg oral tablet 100 mg, 2, tablet, By Mouth, Daily at bedtime, # 60 tablet, Refills 5, Tot. Refills 5, Maintenance,02/01/20 10:29:00 EDT, Route to Pharmacy Electronically, [facility], 191, cm, 12/27/19 12:20:00 EDT, Height, 193.5, kg, 05/21/19 5:38:00 E... Start Date: 02/01/20 Status: Ordered Vitamin D3 2000 intl units oral tablet 1 tablet = 2,000 International_Units, By Mouth, Daily, # 90 tablet, 1 Refills, Maintenance, 02/20/20 14:34:00 EDT, [facility], 191, cm, 12/27/19 12:20:00 EDT, [...] Painful peripheral neuropath y - NOS(Confirmed) Active care home prescription benzo 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
--- OUTSIDE RECORDS SUMMARY | 2022-10-04 17:51 | XMS_ITS | Continuity of Care Document ---
Author Name Unknown Organization [facility] Address [address] [place] [address]- Care Team Providers Care Solar Sales Assessor Name Role Phone Brown Parada MD Primary Care Physician Encounter [facility] [place] Date(s): 06/08/22 - 07/09/22 [facility] [address] [place] [address]- Attending Physician: Not on Staff, Attending MD Referring Physician: Brown Parada MD Allergies, Adverse [...] Reason: Med Not Available 2Result Comment: [05/15/2018] 54417-851-06 3Result Comment: [id number] 4Result Comment: [id number] Medications albuterol CFC free 90 mcg/inh inhalation [...] Gm, 11 Refills, Maintenance, 07/08/20 16:47:00 EST, [place], [facility], 1 sprays [...] 04/02/22 5:55:00 EDT, Route to Pharmacy Electronically, [facility], 191, cm, 02/11/22 11:45:00 EDT, Height, 170, kg, 02/05/22 22:35:00 EDT, . Start Date: 04/02/22 Status: Ordered hydrOXYzine hydrochloride 25 mg oral tablet 1 tablet, By Mouth, 3 times a day, # 84 tablet, 5 Refills, Maintenance, 06/11/22 11:15:00 EST, [facility], 191, cm, 02/11/22 11:45:00 EDT, [...] COMMUNICATE SUGARS WITH PCP TO TITRATE LANTUS. [phone], 08/28... Start Date: 08/28/21 Status: Ordered One [...] capsule, 2 Refills, Maintenance, 05/17/22 11:00:00 EST, [facility], 191, cm, 02/11/22 11:45:00 EDT, [...] 60 tablet, 5 Refills, Maintenance, 07/08/22 10:43:00 [facility], [facility], 191, cm, 02/11/22 11:45:00 EDT, Height, 170, kg, 02/05/22 22:35:00 EDT, Dry Weight Start Date: 07/08/22 Status: Ordered Vitamin D3 2000 intl units oral tablet 1 tablet, By Mouth, Daily, # 28 tablet, 4 Refills, [facility], 191, cm, 08/28/21 11:32:00 EDT, [...] makeup operator prescription benzodiazepine use Confirmed Active Limited mobility Confirmed Active Severe obesity Confirmed Active Non-insulin dependent type 2 diabetes mellitus Confirmed Active Social History Social History Type Response Smoking Status Never entered on: 05/15/18 Sex Patient Care team information Care Team Personnel Name: Gladis Carrizales RN Position: [facility] RN Member Role: Primary Care Nurse Name: Ebony Santoyo RN Position: [facility] RN Member Role: Primary Care Nurse Name: Siobhan Ko RN Position: [facility] RN Member Role: Primary Care Nurse Name: Evette Marrero Position: [facility] RN Supv Member Role: Primary Care Nurse Name: Aviva Howard RN Position: [facility] RN Member Role: Primary Care Nurse Name: Hilda Doyle RN Position: [facility] RN Supv Member Role: Primary Care Nurse Name: Kimmy Ahumada NP Position: [facility] Associate Professional Member Role: Primary Care Nurse Address: Address: [address] [place] [id number] Name: Bruce Mccurdy MD Position: [facility] Renal MD Member Role: Lifetime Consulting Physician Address: Address: [address] [place] [address], [address] [facility] [place], [place] [address] Name: Malika Richards RN Position: [facility] Bank Secrecy Act Officer Member Role: Primary Care Nurse Name: JO GONZALEZ RN Position: [facility] RN Member Role: Primary Care Nurse Name: Shelby Luna RN Position: [facility] RN Member Role: Primary Care Nurse Name: Sarina Camejo RN Position: [facility] RN Member Role: Primary Care Nurse Name: Lachelle Shine RN Position: [facility] RN Member Role: Primary Care Nurse Name: Leilani Lerma RN Position: [facility] HBO Wound Member Role: Primary Care Nurse Name: Sandrita Portillo LPN Position: [facility] RN Member Role: Primary Care Nurse Name: Corina Munoz RN Position: [facility] RN Member Role: Primary Care Nurse Name: Vania Hernandez Position: [facility] RN Member Role: Primary Care Nurse Name: Mukul Dougherty RN Position: [facility] RN Member Role: Primary Care Nurse Name: Hammad Gambino RN Position: [facility] RN Member Role: Primary Care Nurse Name: Kenia Rao RN Position: [facility] RN Member Role: Primary Care Nurse Name: Michele Villavicencio RN Position: [facility] RN Member Role: Primary Care Nurse Name: Brown Parada MD Position: [facility] Primary Care Physician Member Role: PCP Address: Address: [address] [place] [address]- [place] Name: Charlette Lopez RN Position: [facility] RN Member Role: Primary Care Nurse Name: Elena Sheikh RN Position: [facility] RN Member Role: Primary Care Nurse Name: Theodora Serna RN Position: [facility] PCO RN Member Role: Primary Care Nurse Name: Yang Silva RN Position: [facility] RN Member Role: Primary Care Nurse Name: Xiomara Mario RN Position: [facility] RN Member Role: Primary Care Nurse Name: Meg Norman RN Position: [facility] RN Member Role: Primary Care Nurse Name: Latanya Garza RN Position: [facility] RN Member Role: Primary Care Nurse Name: Jaimie Gibson RN Position: [facility] RN Member Role: Primary Care Nurse Name: Carmen Bruner RN Position: [facility] RN Member Role: Primary Care Nurse Name: Kirill Mccartney RN Position: [facility] RN Member Role: Primary Care Nurse Name: Chacha Hassan RN Position: [facility] RN Member Role: Primary Care Nurse Name: Earlene Grayson RN Position: [facility] SN RN Member Role: Primary Care Nurse Name: Cem Carroll MD Position: [facility] Renal MD Member Role: Lifetime Consulting Physician Address: Address: [address] [place] [address] [facility] [place] [address]- [place] Name: Eusebia Hassan RN Position: [facility] RN Member Role: Primary Care Nurse Care Team Related Persons Name: JIMENEZ BRUNER Address: [address] [place] [address] Name: ANYA DE JESUS Address: [address] [place] [address]
--- OUTSIDE RECORDS SUMMARY | 2022-10-04 17:51 | XMS_ITS | Continuity of Care Document ---
Author Name Unknown Organization [facility] A[facility] lt Address [address] [place] [address]- Care Team Providers Care Mailer Name Role Phone Tal WILKINS, Brown Paz Primary Care Physician [phone] [place] [facility] [place]21 [facility] Adult [address] [place] [address]- Allergies, Adverse Reactions, Alerts Substance Reaction Severity [...] Reason: Med Not Available 2Result Comment: [05/15/2018] 29071-909-61 3Result Comment: [id number] 4Result Comment: [id number] Medications acetaminophen 325 mg oral tablet 650 [...] Gm, 11 Refills, Maintenance, 07/08/20 16:47:00 EST, [place], [facility], 1 sprays [...] Details, Route to Pharmacy Electronically, [facility], 190, cm, 07/27/21 12:49... Start Date: 07/30/21 Status: Ordered hydrOXYzine hydrochloride 25 mg oral tablet 1 tablet, By Mouth, 3 times a day, BUBBLE PACK, # 84 tablet, 5 Refills, Maintenance, 07/30/21 9:02:00 EST, [facility], 190, cm, 07/27/21 12:49:00 EST, [...] 0 Refills, Maintenance, 07/21/21 11:47:00 EST, Solution, [facility], Partial fill upon patient request if [...] COMMUNICATE SUGARS WITH PCP TO TITRATE LANTUS. [phone], 08/28... Start Date: 08/28/21 Status: Ordered One [...] the prescription... Start Date: 10/08/21 Status: Ordered pantoprazole 40 mg [...] 168 capsule, 5 Refills, 09/15/21 5:56:00 EDT, [facility], 191, cm, 08/28/21 11:32:00 EDT, Height, 168.5, kg, 08/18/21 22:23:00 EDT... Start Date: 09/15/21 Status: Ordered prazosin 5 mg oral capsule 5 mg, 1, capsule, By Mouth, Daily at bedtime, BUBBLE PACK, # 28 capsule, Refills 4, Tot. Refills 4,Maintenance, 04/02/21 8:22:00 EDT, Route to Pharmacy Electronically, [facility], 190, cm, 01/23/21 8:35:00 EDT, Height, 153, kg, 01/14/21... Start Date: 04/02/21 Status: Ordered ProAir HFA 90 mcg/inh inhalation aerosol 2 puffs, Inhalation, Every 4 hours, PRN Wheezing/Shortness of Breath, # 1 each, 5 Refills, Maintenance, 06/27/20 16:56:00 EST, [facility], Partial fill upon patient request [...] Painful peripheral neuropath y - NOS(Confirmed) Active luster applicator prescription benzo diazepine use(Confirmed) Active Limited mobility(Confirmed) Active Severe obesity(Confirmed) Active Non-insulin dependent type 2 diabetes mellitus(Confirmed) Active Social History Social History Type Response Smoking Status Never entered on: 05/15/18 Sex
--- OUTSIDE RECORDS SUMMARY | 2022-10-04 17:51 | XMS_ITS | Continuity of Care Document ---
Author Name Unknown Organization [facility] Aung Address [address] [place] [address]- Care Team Providers Care Custom Feed Corn Operator Name Role Phone Sanaz WILKINS, Matheus Castro Primary Care Physician Encounter [facility] [place] Date(s): 06/30/20 - 07/30/20 [facility] Adult [address] [place] [address]- Allergies, Adverse Reactions, Alerts Substance Reaction Severity [...] kyle tetanus/diphtheria/pertussis, acel(Tdap) 05/07/09 Given 1Result Comment: [id number] 2Result Comment: [id number] 3Result Comment: [05/15/2018] 05885-910-38 Medications acetaminophen 325 mg oral tablet 650 mg, By Mouth, Every 4 hours, PRN, Refills 0, Maintenance, Pain , Mild, 12/12/19 13:05:00 EDT Start Date: 12/12/19 Status: Ordered albuterol CFC free 90 mcg/inh inhalation aerosol 2, puffs, Inhalation, Every 4 hours, PRN, # 18 Gm, Refills 5, Tot. Refills 5, Maintenance, 06/24/2115:37:00 EST, Aerosol, Route to Pharmacy Electronically, [id number], [facility], 191, giovani, 06/24/20 [...] 05/07/20 10:14:00 EST, Route to Pharmacy Electronically, [facility], 191, cm, 12/27/19 [...] EDT, Route to Pharmacy Electronically, [facility], 191, cm, 07/23/2013:30:00 EST, Height, 193.5, kg, 05/21/19 5:38:00 EST,... Start Date: 12/12/19 Status: Ordered Flonase 50 mcg/inh nasal spray 1 sprays, Nares, Both, 2 times a day, # 16 Gm, 11 Refills, Maintenance, 07/08/20 16:47:00 EST, [place], [facility], 1 sprays Nares, Both 2 times a day, 191, cm, 06/24/20 13:40:00 EST, Height, 193.5, kg, 05/21/19 5:38:00 EST, Dry Weight Start Date: 07/08/20 Status: Ordered gabapentin 300 mg oral capsule 300 mg, 1, capsule, By Mouth, 4 times a day, # 120 capsule, Refills 11, Tot. Refills 11, Maintenance, 07/24/20 17:44:00 EST, Route to Pharmacy Electronically, [facility], 191, cm, 06/24/20 13:40:00 EST, [...] 02/20/20 14:34:00 EDT, Route to Pharmacy Electronically, [facility], 191, cm, 12/27/19 12:20:00 EDT, Height, 193.5, kg, 05/21/19 5:38:00 EST, Dry... Start Date: 02/20/20 Status: Ordered Lasix 40 mg oral tablet 40 mg, 1, tablet, By Mouth, 2 times a day, # 60 tablet, Refills 5, Tot. Refills 5, Maintenance, 03/31/20 17:16:00 EDT, Route to Pharmacy Electronically, [facility], 191, cm, 12/27/2011:20:00 EDT, Height, 193.5, kg, 05/21/19 5:38:00 EST,... Start Date: 03/31/20 Status: Ordered lisinopril 40 mg oral tablet 1 tablet = 40 mg, By Mouth, Daily, APPOINTMENT 02/26/20, # 10 tablet, 0 Refills, Maintenance, 02/22/20 13:44:00 EDT, Tablet, [facility], 191, cm, 12/27/19 12:20:00 EDT, [...] Start Date: 05/07/20 Status: Ordered nystatin topical 092223 u/gm powder See Instructions, Topically 2 times [...] #180 Unknown, 3 Refills, Maintenance, [facility], 191, cm, 06/24/20 13:40:00 EST, Height, 193.5, kg, 05/21/19 5:38:00 EST, Dry Weight Start Date: 07/08/20 Status: Ordered prazosin 5 mg oral capsule 5 mg, 1, capsule, By Mouth, Daily at bedtime, # 30 capsule, Refills 5, Tot. Refills 5, Maintenance,07/19/19 15:02:00 EST, Route to Pharmacy Electronically, [facility], 191, cm, 07/18/19 14:17:00 EST, [...] 5 Refills, Maintenance, 04/25/20 14:23:00 EST, Tablet, [facility], 191, cm, 12/27/19 12:20:00 EDT, Height, 193.5, kg, 05/21/19 5:38:00EST, Dry Weight Start Date: 04/25/20 Status: Ordered spironolactone 25 mg oral tablet 25 mg, 1, tablet, By Mouth, Daily, # 30 tablet, Refills 5, Tot. Refills 5, Maintenance, 02/19/20 9:52:00 EDT, Route to Pharmacy Electronically, [facility], 191, cm, 12/27/19 12:20:00EDT, Height, 193.5, kg, 05/21/19 5:38:00 EST, Dry Weight Start Date: 02/19/20 Status: Ordered traZODone 50 mg oral tablet 100 mg, 2, tablet, By Mouth, Daily at bedtime, # 60 tablet, Refills 5, Tot. Refills 5, Maintenance,06/23/20 11:13:00 EST, Route to Pharmacy Electronically, [facility], 191, cm, 12/27/19 12:20:00 [...]
--- OUTSIDE RECORDS SUMMARY | 2022-10-04 17:51 | XMS_ITS | Continuity of Care Document ---
Author Name Unknown Organization [facility] Eddie Aung lt Address [address] [place] [address]- Care Team Providers Care Rail Car Repairer Name Role Phone Tal WILKINS, Brown Paz Primary Care Physician [phone] Encounter [facility] Date(s): 05/25/22 - 06/24/22 [facility] Adult [address] [place] [address]- Allergies, Adverse Reactions, Alerts Substance Reaction Severity Status clindamycin Hives Active penicillin rash Active Bee Stings Active antivenin (black spider) Active Latex anaphylaxis Active Contrast Dye urticaria Active Immunizations Given [...] Reason: Med Not Available 2Result Comment: [05/15/2018] 19643-786-73 3Result Comment: [id number] 4Result Comment: [id number] Medications albuterol CFC free 90 mcg/inh inhalation [...] Gm, 11 Refills, Maintenance, 07/08/20 16:47:00 EST, [place], [facility], 1 sprays [...] 04/02/22 5:55:00 EDT, Route to Pharmacy Electronically, [facility], 191, cm, 02/11/22 11:45:00 EDT, Height, 170, kg, 02/05/22 22:35:00 EDT, . Start Date: 04/02/22 Status: Ordered hydrOXYzine hydrochloride 25 mg oral tablet 1 tablet, By Mouth, 3 times a day, # 84 tablet, 5 Refills, Maintenance, 06/11/22 11:15:00 EST, [facility], 191, cm, 02/11/22 11:45:00 EDT, [...] COMMUNICATE SUGARS WITH PCP TO TITRATE LANTUS. [phone], 08/28... Start Date: 08/28/21 Status: Ordered One [...] 0, Tot. Refills0, Maintenance, Pain , Severe, 05/26/22 12:43:00 E... Start Date: 05/26/22 Status: Ordered pantoprazole 40 mg oral delayed [...] Refills, Maintenance, 05/17/22 11:00:00 EST, [facility], 191, [...] Date: 08/17/21 Stop Date: 02/13/22 Status: Ordered Vitamin D3 2000 intl units [...] Painful peripheral neuropathy - NOS Confirmed Active snf prescription benzodiazepine use Confirmed Active Limited mobility Confirmed Active Severe obesity Confirmed Active Non-insulin dependent type 2 diabetes mellitus Confirmed Active Social History Social History Type Response Smoking Status Never entered on: 05/15/18 Sex Patient Care team information Care Team Personnel Name: Gladis Carrizales RN Position: [facility] RN Member Role: Primary Care Nurse Name: Ebony Santoyo RN Position: [facility] RN Member Role: Primary Care Nurse Name: Siobhan Ko RN Position: [facility] RN Member Role: Primary Care Nurse Name: Evette Marrero Position: [facility] RN Supv Member Role: Primary Care Nurse Name: Aviva Howard RN Position: [facility] RN Member Role: Primary Care Nurse Name: Hilda Doyle RN Position: [facility] RN Supv Member Role: Primary Care Nurse Name: Kimmy Ahumada NP Position: [facility] Associate Professional Member Role: Primary Care Nurse Address: Address: [address] [place] [id number] Name: Bruce Mccurdy MD Position: [facility] Renal MD Member Role: Lifetime Consulting Physician Address: Address: [address] [place] [address], [address] [facility] [place], [place] [address] Name: Cristo Elias RN Position: [facility] RN Member Role: Primary Care Nurse Name: Malika Richards RN Position: [facility] Classroom Monitor Member Role: Primary Care Nurse Name: JO GONZALEZ RN Position: [facility] RN Member Role: Primary Care Nurse Name: Shelby Luna RN Position: [facility] RN Member Role: Primary Care Nurse Name: Sarina Camejo RN Position: [facility] RN Member Role: Primary Care Nurse Name: Lachelle Shine RN Position: [facility] RN Member Role: Primary Care Nurse Name: Leilani Lerma RN Position: [facility] HBO Wound Member Role: Primary Care Nurse Name: Sandrita Portillo LPN Position: [facility] RN Member Role: Primary Care Nurse Name: Corina Munoz RN Position: [facility] RN Member Role: Primary Care Nurse Name: Vania Hernandez Position: [facility] RN Member Role: Primary Care Nurse Name: Mukul Dougherty RN Position: [facility] RN Member Role: Primary Care Nurse Name: Hammad Gambino RN Position: [facility] RN Member Role: Primary Care Nurse Name: Kenia Rao RN Position: [facility] RN Member Role: Primary Care Nurse Name: Michele Villavicecnio RN Position: [facility] ED RN W/OE and Tasks Member Role: Primary Care Nurse Name: Brown Parada MD Position: [facility] Primary Care Physician Member Role: PCP Address: Address: [address] [place] [address]- [place] Name: Charlette Lopez RN Position: [facility] RN Member Role: Primary Care Nurse Name: Elena Sheikh RN Position: [facility] RN Member Role: Primary Care Nurse Name: Theodora Serna RN Position: [facility] PCO RN Member Role: Primary Care Nurse Name: Yang Silva RN Position: [facility] RN Member Role: Primary Care Nurse Name: Xiomara Mario RN Position: [facility] RN Member Role: Primary Care Nurse Name: Meg [place] RN Position: [facility] RN Member Role: Primary Care Nurse Name: Latanya Garza RN Position: [facility] RN Member Role: Primary Care Nurse Name: Jaimie Gibson RN Position: [facility] RN Member Role: Primary Care Nurse Name: Carmen Bruner RN Position: [facility] RN Member Role: Primary Care Nurse Name: Kirill Mccartney RN Position: [facility] RN Member Role: Primary Care Nurse Name: Chacha Hassan RN Position: [facility] RN Member Role: Primary Care Nurse Name: Earlene Grayson RN Position: [facility] SN RN Member Role: Primary Care Nurse Name: Cem Carroll MD Position: [facility] Renal MD Member Role: Lifetime Consulting Physician Address: Address: [address] [place] [address] [facility] [place] [address]- [place] Name: Eusebia Hassan RN Position: [facility] RN Member Role: Primary Care Nurse Care Team Related Persons Name: JIMENEZ BRUNER Address: [address] [place] [address] Name: KADEN DE JESUSA Address: home [address] [place] [address]
--- OUTSIDE RECORDS SUMMARY | 2022-10-04 17:51 | XMS_ITS | Continuity of Care Document ---
Author Name Unknown Organization [facility] Vivian Aung lt Address [address] [place] [address]- Care Team Providers Care Crusher Loader Equipment Operator Name Role Phone Brown Parada MD Primary Care Physician Encounter [facility] [place] Date(s): 08/28/21 - 09/04/21 [facility] Adult [address] [place] [address]- Attending Physician: Brown Parada MD Allergies, Adverse [...] Reason: Med Not Available 2Result Comment: [05/15/2018] [id number] 3Result Comment: [id number] 4Result Comment: [id number] Medications acetaminophen 325 mg oral tablet 650 [...] DAILY., # 28 tablet, 5 Refills, Maintenance, 09/01/21 18:09:00 EDT, [facility], 191, cm, 08/28/21 11:32:00 EDT, Height, 168.5, kg, 08/18/21 22:23:00 EDT, Dry Weight Start Date: 09/01/21 Status: Ordered Bariatric wheelchair with standard leg [...] Gm, 11 Refills, Maintenance, 07/08/20 16:47:00 EST, [place], [facility], 1 sprays Nares, Both 2 times a day, 191, cm, 06/24/20 13:40:00 EST, Height, 193.5, kg, 05/21/19 5:38:00 EST, Dry Weight Start Date: 07/08/20 Status: Ordered Freestyle Christin 14 day reader Freestyle Christin 14 day reader, See Instructions, # 1 each, Refills 0, Tot. Refills 0, Maintenance, Freestyle Christin 14 day reader, 03/25/22 13:18:00 EDT, Compound, 191, cm, 08/28/21 11:32:00 [...] Replace Required Details, Route to Pharmacy Electronically, [facility], 190, cm, 07/27/21 12:49... Start Date: 07/30/21 Status: Ordered hydrOXYzine hydrochloride 25 mg oral tablet 1 tablet, By Mouth, 3 times a day, BUBBLE PACK, # 84 tablet, 5 Refills, Maintenance, 07/30/21 9:02:00 EST, [facility], 190, cm, 07/27/21 12:49:00 EST, [...] 0 Refills, Maintenance, 07/21/21 11:47:00 EST, Solution, [facility], Partial fill [...] COMMUNICATE SUGARS WITH PCP TO TITRATE LANTUS. [phone], 08/28... Start Date: 08/28/21 Status: Ordered One [...] 13:07:00 EDT, Route to Pharmacy Electronically, [facility], Partial fill upon patient request if t... Start Date: 08/28/21 Stop Date: 09/25/21 Status: Ordered pantoprazole 40 mg oral delayed release tablet See Instructions, TAKE ONE TABLET BY MOUTH EVERY DAY, # 28 tablet, 2 Refills, Maintenance, 09/01/2217:10:00 EDT, 191, cm, 08/28/21 11:32:00 EDT, Height, 168.5, kg, 08/18/21 22:23:00 EDT, Dry Weight Start Date: 09/01/21 Status: Ordered phenytoin 100 mg oral capsule, [...] 04/02/21 8:22:00 EDT, Route to Pharmacy Electronically, [facility], 190, cm, 01/23/21 8:35:00 EDT, [...] 10/08/21 8:00:00 EDT, 09/04/21 14:09:00 EDT, Ointment, [facility], Partial fill upon patient request if the prescription is for... Start Date: 09/04/21 Stop Date: 10/08/21 Status: Ordered torsemide 20 mg oral tablet 2 tablet = 40 mg, By Mouth, Daily, # 60 tablet, 5 Refills, Maintenance, 08/17/21 9:30:00 EDT, Tablet, [facility], Partial fill upon patient request [...] oldest [Reference Range]: 1 Height 191 cm (08/28/21 11:32 AM) Oxygen Saturation [94-100 %] 97 % (08/28/21 11:32 AM) Pulse Rate [55-90 bpm] 87 bpm (08/28/21 11:32 AM) Blood Pressure [90-138/55-84 mm Hg] 81/5 3mm Hg *L* (08/28/21 11:32 AM) Temperature [96.8-100.4 DegF] 97.9 DegF (3/25/22 11:32 AM) Mode of Delivery (Oxygen) Room air (08/28/21 11:32 AM) Blood pressure sites Arm, left (08/28/21 11:32 AM) Temperature Route Oral (08/28/21 11:32 AM) Weight Obtained Via Standing scale (08/28/21 11:32 AM) Social History Social History Type Response Smoking Status Never entered on: 05/15/18 Sex
--- OUTSIDE RECORDS SUMMARY | 2022-10-04 17:51 | XMS_ITS | Continuity of Care Document ---
Author Name Unknown Organization [facility] Eddie Aung lt Address [address] [place] [address]- Care Team Providers Care Pyroglazer Name Role Phone Tal WILKINS, Brown Paz Primary Care Physician Encounter [facility] [place] Date(s): 06/14/22 - 07/14/22 [facility] Adult [address] [place] [address]- Allergies, Adverse Reactions, Alerts Substance Reaction Severity [...] Reason: Med Not Available 2Result Comment: [05/15/2018] 27974-068-83 3Result Comment: [id number] 4Result Comment: [id number] Medications albuterol CFC free 90 mcg/inh inhalation [...] Gm, 11 Refills, Maintenance, 07/08/20 16:47:00 EST, [place], [facility], 1 sprays [...] 04/02/22 5:55:00 EDT, Route to Pharmacy Electronically, [facility], 191, cm, 02/11/22 11:45:00 EDT, Height, 170, kg, 02/05/22 22:35:00 EDT, . Start Date: 04/02/22 Status: Ordered hydrOXYzine hydrochloride 25 mg oral tablet 1 tablet, By Mouth, 3 times a day, # 84 tablet, 5 Refills, Maintenance, 06/11/22 11:15:00 EST, [facility], 191, cm, 02/11/22 11:45:00 EDT, [...] COMMUNICATE SUGARS WITH PCP TO TITRATE LANTUS. [phone], 08/28... Start Date: 08/28/21 Status: Ordered One [...] capsule, 2 Refills, Maintenance, 05/17/22 11:00:00 EST, [facility], 191, cm, 02/11/22 11:45:00 EDT, [...] tablet, 5 Refills, Maintenance, 07/08/22 10:43:00 EST, [facility], 191, cm, 02/11/22 11:45:00 EDT, Height, 170, kg, 02/05/22 22:35:00 EDT, Dry Weight Start Date: 07/08/22 Status: Ordered Vitamin D3 2000 intl units oral tablet 1 tablet, By Mouth, Daily, # 28 tablet, 4 Refills, [facility], 191, cm, 08/28/21 11:32:00 EDT, [...] Personnel Name: All BOSS Gladis Loyolamagdaleno Position: [facility] RN Member Role: Primary Care Nurse Name: Ebony Santoyo RN Position: [facility] RN Member Role: Primary Care Nurse Name: Siobhan Ko RN Position: [facility] RN Member Role: Primary Care Nurse Name: Evette Marrero Position: [facility] RN Supv Member Role: Primary Care Nurse Name: Aviva Howard RN Position: [facility] RN Member Role: Primary Care Nurse Name: Hilda Doyle RN Position: [facility] RN Supv Member Role: Primary Care Nurse Name: Kimmy Ahumada NP Position: [facility] Associate Professional Member Role: Primary Care Nurse Address: Address: [address] [place] [id number] Name: Bruce Mccurdy MD Position: [facility] Renal MD Member Role: Lifetime Consulting Physician Address: Address: [address] [place] [address], [address] [facility] [place], [place] [address] Name: Malika Richards RN Position: [facility] Dietitian Chief Member Role: Primary Care Nurse Name: JO GONZALEZ RN Position: [facility] RN Member Role: Primary Care Nurse Name: Shelby Luna RN Position: [facility] RN Member Role: Primary Care Nurse Name: Sarina Camejo RN Position: [facility] RN Member Role: Primary Care Nurse Name: Lachelle Shine RN Position: [facility] RN Member Role: Primary Care Nurse Name: Leilani Lerma RN Position: [facility] HBO Wound Member Role: Primary Care Nurse Name: Sandrita Portillo LPN Position: [facility] RN Member Role: Primary Care Nurse Name: Corina Munoz RN Position: [facility] RN Member Role: Primary Care Nurse Name: Vania Hernandez Position: [facility] RN Member Role: Primary Care Nurse Name: Mukul Dougherty RN Position: [facility] RN Member Role: Primary Care Nurse Name: Hammad Gambino RN Position: [facility] RN Member Role: Primary Care Nurse Name: Kenia Rao RN Position: [facility] RN Member Role: Primary Care Nurse Name: Michele Villavicencio RN Position: [facility] RN Member Role: Primary Care Nurse Name: Brown Parada MD Position: [facility] Primary Care Physician Member Role: PCP Address: Address: [address] [place] [address]- [place] Name: Charlette Lopez RN Position: [facility] RN Member Role: Primary Care Nurse Name: Elena Sheikh RN Position: [facility] RN Member Role: Primary Care Nurse Name: Theodora Serna RN Position: [facility] PCO RN Member Role: Primary Care Nurse Name: Yang Silva RN Position: [facility] RN Member Role: Primary Care Nurse Name: Xiomara Mario RN Position: [facility] RN Member Role: Primary Care Nurse Name: Meg [place] RN Position: [facility] RN Member Role: Primary Care Nurse Name: Latanya Garza RN Position: [facility] RN Member Role: Primary Care Nurse Name: Jaimie Gibson RN Position: [facility] RN Member Role: Primary Care Nurse Name: Carmen Bruner RN Position: [facility] RN Member Role: Primary Care Nurse Name: Kirill Mccartney RN Position: [facility] RN Member Role: Primary Care Nurse Name: Chacha Hassan RN Position: [facility] RN Member Role: Primary Care Nurse Name: Earlene Grayson RN Position: [facility] SN RN Member Role: Primary Care Nurse Name: Cem Carroll MD Position: [facility] Renal MD Member Role: Lifetime Consulting Physician Address: Address: [address] [place] [address] [facility] [place] [address]- [place] Name: Eusebia Hassan RN Position: [facility] RN Member Role: Primary Care Nurse Care Team Related Persons Name: JIMENEZ BRUNER Address: [address] [place] [address] Name: ANYA DE JESUS Address: [address] [place] [address]
--- OUTSIDE RECORDS SUMMARY | 2022-10-04 17:51 | XMS_ITS | Continuity of Care Document ---
Author Name Unknown Organization [facility] Eddie Aung Address [address] [place] [address]- Care Team Providers Care Shoe Dresser Name Role Phone Sanaz WILKINS, Matheus Castro Primary Care Physician [phone] Encounter [facility] Date(s): 02/20/20 - 03/21/20 [facility] Adult [address] [place] [address]- [facility] Allergies, Adverse Reactions, Alerts Substance Reaction [...] kyle tetanus/diphtheria/pertussis, acel(Tdap) 05/07/09 Given 1Result Comment: [id number] 2Result Comment: [id number] 3Result Comment: [05/15/2018] [id number] Medications acetaminophen 325 mg oral tablet 650 [...] 10/25/19 8:57:00 EDT, Route to Pharmacy Electronically, [facility], 191, cm, 07/23/19 14:30:00EST, Height, 193.5, kg, 05/21/19 5:38:00 EST, Dry Weight Start Date: 10/25/19 Stop Date: 04/22/20 Status: Ordered cyanocobalamin 1000 mcg oral tablet, extended release 1 tablet = 1,000 mcg, By Mouth, Daily, # 30 tablet, 11 Refills, Maintenance, 02/21/20 10:38:00 EDT,[facility], 191, cm, 12/27/19 12:20:00 [...] EDT, Route to Pharmacy Electronically, [facility], 191, cm, 07/23/2013:30:00 EST, Height, 193.5, kg, 05/21/19 5:38:00 EST,... Start Date: 12/12/19 Status: Ordered Flonase 50 mcg/inh nasal spray 1 sprays, Nares, Both, 2 times a day, # 16 Gm, 0 Refills, Maintenance, 05/23/18 10:06:41 EST, [place], 1 sprays Nares, Both 2 times a day Start Date: 05/23/18 Status: Ordered gabapentin 300 mg oral capsule 300 mg, 1, capsule, By Mouth, Daily, APPOINTMENT 02/26/20, # 10 capsule, Refills 0, Tot. Refills 0, Maintenance, 02/22/20 13:44:00 EDT, Route to Pharmacy Electronically, [facility], 191, cm, 12/27/19 12:20:00 [...] EDT, Route to Pharmacy Electronically, [facility], 191, cm, 12/27/19 12:20:00 [...] Start Date: 08/06/19 Status: Ordered nystatin topical 174794 u/gm powder See Instructions, Topically 2 times [...] Maintenance,07/19/19 15:02:00 EST, Route to Pharmacy Electronically, [facility], 191, cm, 07/18/19 14:17:00 EST, Height, 193.5, kg, 05/21/19 5:38:00 E... Start Date: 07/19/19 Status: Ordered QUEtiapine 50 mg oral tablet 1 tablet = 50 mg, By Mouth, Daily, # 30 tablet, 5 Refills, Maintenance, 12/12/19 10:07:00 EDT, Tablet, [facility], 191, cm, 07/23/19 14:30:00 EST, Height, 193.5, kg, 05/21/19 5:38:00EST, Dry Weight Start Date: 12/12/19 Status: Ordered spironolactone 25 mg oral tablet 25 mg, 1, tablet, By Mouth, Daily, # 30 tablet, Refills 5, Tot. Refills 5, Maintenance, 02/19/20 9:52:00 EDT, Route to Pharmacy Electronically, [facility], 191, cm, 12/27/19 12:20:00EDT, Height, 193.5, kg, 05/21/19 5:38:00 EST, Dry Weight Start Date: 02/19/20 Status: Ordered traZODone 50 mg oral tablet 100 mg, 2, tablet, By Mouth, Daily at bedtime, # 60 tablet, Refills 5, Tot. Refills 5, Maintenance,02/01/20 10:29:00 EDT, Route to Pharmacy Electronically, [facility], 191, cm, 12/27/19 12:20:00 EDT, Height, 193.5, kg, 05/21/19 5:38:00 E... Start Date: 02/01/20 Status: Ordered Vitamin D3 2000 intl units oral tablet 1 tablet = 2,000 International_Units, By Mouth, Daily, # 90 tablet, 1 Refills, Maintenance, 02/20/20 14:34:00 EDT, [facility], 191, cm, 12/27/19 12:20:00 [...]
--- OUTSIDE RECORDS SUMMARY | 2022-10-04 17:51 | XMS_ITS | Continuity of Care Document ---
Author Name Unknown Organization [facility] ter Address [address] [place] [id number]- Care Team Providers Care Wafer Substrate Tester Name Role Phone Tal WILKINS, Brown Paz Primary Care Physician [phone] Encounter [facility] Date(s): 07/09/21 - 07/21/[address] [address]- Encounter Diagnosis Acute chest pain(Final) - 07/09/21 (HFpEF) heart failure with preserved ejection fraction(Final) - 07/09/21 Active asthma(Final) - 07/09/21 Discharge Disposition: A-Transfer VNA/Home Health Attending Physician: Jordi WILKINS, Jasmin Admitting Physician: Reggie Davila MD Referring Physician: Not on Staff, Referring MD Allergies, Adverse Reactions, Alerts Substance Reaction Severity Status clindamycin Hives Active penicillin rash Active antivenin (black spider) Active Latex anaphylaxis Active aspirin Active Bee Stings Active Contrast Dye urticaria Active Immunizations Given and Recorded Vaccine Date Status Refusal Reason SARS-CoV-2 (COVID-19) mRNA-1273 vaccine 1 07/10/21 Given SARS-CoV-2 (COVID-19) mRNA-1273 vaccine 01/13/21 G iven influenza virus vaccine, inactivated 07/10/21 Give n influenza virus vaccine, inactivated 2 05/15/18 Gi kyle tetanus-diphtheria toxoids (Td) 3 07/18/19 Given pneumococcal 23-valent vaccine 4 07/18/19 Given tetanus/diphtheria/pertussis, acel(Tdap) 05/07/09 Given 1Early/Late Reason: Early/Late Reason: Med Not Available 2Result Comment: [05/15/2018] [id number] 3Result Comment: [id number] 4Result Comment: [id number] Medications acetaminophen 325 mg oral tablet 650 [...] release 360 mg, CD Capsule, By Mouth, 07/21/21 9:00:00 EST Start Date: 07/21/21 Stop Date: 07/21/21 Status: Completed Cardizem CD 360 mg/24 hours [...] 07/21/21 11:40:00 EST, Route to Pharmacy Electronically, [facility], Partial fill upon patient request if the prescription is for a schedule II opioid drug., 1... Start Date: 07/21/21 Status: Ordered Flonase 50 mcg/inh nasal spray 1 sprays, Nares, Both, 2 times a day, # 16 Gm, 11 Refills, Maintenance, 07/08/20 16:47:00 EST, [place], [facility], 1 sprays Nares, Both 2 times a day, 191, cm, 06/24/20 13:40:00 EST, Height, 193.5, kg, 05/21/19 5:38:00 EST, Dry Weight Start Date: 07/08/20 Status: Ordered gabapentin 300 mg oral capsule 300 mg, Capsule, By Mouth, 07/21/21 13:00:00 EST Start Date: 07/21/21 Stop Date: 07/21/21 Status: Completed gabapentin 300 mg oral capsule 300 mg, 1, capsule, By Mouth, 4 times a day, # 120 capsule, Refills 5, Tot. Refills 5, Maintenance,03/23/21 16:59:00 EDT, Route to Pharmacy Electronically, [facility], 190, cm, 01/23/21 8:35:00 EDT, Height, 153, kg, 01/14/21 23:22:00 EDT... Start Date: 03/23/21 Status: Ordered hydrOXYzine hydrochloride 25 mg oral tablet 1 tablet, By Mouth, 3 times a day, BUBBLE PACK, # 84 tablet, 5 Refills, Maintenance, 02/23/21 16:53:00 EDT, [facility], 190, cm, 01/23/21 8:35:00 EDT, Height, 153, kg, 01/14/21 23:22:00 EDT, Dry Weight Start Date: 02/23/21 Status: Ordered insulin lispro 100 u/ml subcutaneous [...] 0 Refills, Maintenance, 07/21/21 11:47:00 EST, Solution, [facility], Partial fill upon patient request if the prescriptionis for a schedule II opioid drug., 190, cm, ... Start Date: 07/21/21 Status: Ordered levoFLOXacin 750 mg oral tablet 1 tablet = 750 mg, By Mouth, Every 24 hours, # 2 tablet, 0 Refills, Acute 07/22/21 11:40:00 EST, 07/21/21 11:40:00 EST, Tablet, [facility], Partial fill upon patient request if the prescription is for a schedule II opioid drug., 190, cm,... Start Date: 07/21/21 Stop Date: 07/22/21 Status: Ordered LORazepam 2 mg oral tablet [...] 0 Refills, Maintenance, 07/21/21 11:40:00 EST, Tablet, [facility], Partial fill upon patient [...] Dry Weight Start Date: 02/23/21 Status: Ordered metoprolol 50 mg oral tablet 50 mg, XL Tablet, By Mouth, 07/21/21 9:00:00 EST Start Date: 07/21/21 Stop Date: 07/21/21 Status: Completed Metoprolol Succinate ER 50 mg [...] EDT, Route to Pharmacy Electronically, [facility], 190, cm, 01/23/21 8:35:00 EDT, Height, 153, kg, 01/14/21... Start Date: 04/02/21 Status: Ordered ProAir HFA 90 mcg/inh inhalation aerosol 2 puffs, Inhalation, Every 4 hours, PRN Wheezing/Shortness of Breath, # 1 each, 5 Refills, Maintenance, 06/27/20 16:56:00 EST, [facility], Partial fill upon patient request [...] Results Orders for Microbiology Reports Name Date Sputum Culture w/ Gram Smear 07/17/21 Anaerobic Culture (ANAEROBIC CULTURE) 07/15/21 AFB Culture w/ AFB Smear, Respiratory 07/15/21 Fungal Culture, Respiratory 07/15/21 Sterile Body Fluid Culture W/ Gram Smear 07/15/21 Urine Culture (URINE CULTURE) 07/13/21 Microbiology Reports TEST:Sputum Culture STATUS:Auth (Verified) BODY SITE: SOURCE:EXPECT COLLECTED DATE/TIME:07/17/21 2:50 PM Sputum Culture SPECIMEN DESCRIPTION : EXPECTORATED SPUTUM SPECIAL REQUESTS : NONE GRAM STAIN : 1+ SQ.EPITHELIAL CELLS 2+ POLYMORPHONUCLEAR LEUKOCYTES 3+ GRAM POSITIVE COCCI CULTURE : 3+ STAPHYLOCOCCUS AUREUS. REPORT STATUS : FINAL 07/19/2021 ORGANISM 3+ STAPHYLOCOCCUS AUREUS. METHOD MIN. INHIB. CONC. (MCG/ML) CIPROFLOXACIN SUSCEPTIBLE CLINDAMYCIN SUSCEPTIBLE ERYTHROMYCIN RESISTANT INDUCIBLE CLINDAMYCI NEGATIVE LEVOFLOXACIN SUSCEPTIBLE OXACILLIN SUSCEPTIBLE PENICILLIN RESISTANT RIFAMPIN SUSCEPTIBLE RIFAMPIN RIFAMPIN SHOULD NOT BE USED ALONE FOR ANTIMICROBIAL RIFAMPIN THERAPY. TETRACYCLINE SUSCEPTIBLE TRIMETH/SULFAMETHOX SUSCEPTIBLE VANCOMYCIN SUSCEPTIBLE TEST:Anaerobic Culture STATUS:Auth (Verified) BODY SITE: SOURCE:Pleura COLLECTED DATE/TIME:07/15/21 4:00 PM Anaerobic Culture SPECIMEN DESCRIPTION : Pleural fluid, left SPECIAL REQUESTS : NONE CULTURE : NO ANAEROBES ISOLATED REPORT STATUS : FINAL 07/20/2021 TEST:Fungal Culture, Respiratory STATUS:Unauthenticated BODY SITE: SOURCE:Pleura COLLECTED DATE/TIME:07/15/21 4:00 PM Fungal Culture, Respiratory SPECIMEN DESCRIPTION : Pleural fluid, left SPECIAL REQUESTS : NONE DIRECT EXAM : NO FUNGAL ELEMENTS OBSERVED CULTURE : NO FUNGI ISOLATED AFTER 5 DAYS REPORT STATUS : PRELIMINARY REPORT TEST:AFB Culture w/AFB Smear, Respiratory STATUS:Unauthenticated BODY SITE: SOURCE:Pleura COLLECTED DATE/TIME:07/15/21 4:00 PM AFB Culture w/AFB Smear, Respiratory SPECIMEN DESCRIPTION : Pleural fluid, left SPECIAL REQUESTS : NONE DIRECT EXAM : NO ACID FAST BACILLI SEEN ON DIRECT SMEAR, TEST PERFORMED AT [facility] No acid fast bacilli seen on concentrated smear. Per [facility] protocol, this specimen was concentrated prior to smear preparation. [facility], [address] [place] [id number]. CULTURE : SPECIMEN SENT TO [facility], [place], [place] REPORT STATUS : PRELIMINARY REPORT TEST:Sterile Fluid Culture STATUS:Auth (Verified) BODY SITE: SOURCE:Pleura COLLECTED DATE/TIME:07/15/21 4:00 PM Sterile Fluid Culture SPECIMEN DESCRIPTION : Pleural fluid, left SPECIAL REQUESTS : NONE GRAM STAIN : NO CELLS OR ORGANISMS SEEN CULTURE : NO GROWTH 2 DAYS REPORT STATUS : FINAL 07/18/2021 TEST:Urine Culture STATUS:Auth (Verified) BODY SITE: SOURCE:URINE COLLECTED DATE/TIME:07/13/21 6:50 PM Urine Culture SPECIMEN DESCRIPTION : URINE CLEAN CATCH/MIDSTREAM SPECIAL REQUESTS : NONE Reflexed from [id number] CULTURE : Mixed bacterial vanessa, indicative of urogenital contamination. REPORT STATUS : FINAL 07/15/2021 Radiology Reports * Exam Date Time Procedure Performing Provider Status 07/18/21 6:57 AM Chest 2 Views Frontal and Lat Zina Flores; Auth (Verified) Notes: (Chest 2 Views Frontal and Lat) Reason For Exam: Follow-Up Pleural Effusion;Follow-Up Pleural Effusion RESULT: Chest 2 Views Frontal and Lat Chest 2 Views Frontal and Lat INDICATION/CLINICAL QUESTION: Atrial fibrillation. Patient has had recent left pleural effusion with basilar atelectasis. Current acute hypoxic respiratory failure with concern for pneumonia. TECHNIQUE: Frontal and lateral views of the chest. COMPARISON: 07/17/2021.. FINDINGS: LINES AND TUBES: Left pleural drain in satisfactory position. LUNGS AND PLEURA: RIGHT CHEST: The lung is clear. Minimal pleural effusion. LEFT CHEST: The upper and mid lung are clear. Left pleural effusion and basilar atelectasis best demonstrated on the lateral view. On the AP view it is mildly improved since 07/17/2021. HEART, MEDIASTINUM AND NNAMDI: The heart is of normal size. No mediastinal abnormality. BONES AND SOFT TISSUES: No acute bony abnormality. IMPRESSION: 1. In the right chest lung is clear and there is a minimal effusion. 2. Left chest there is atelectasis and effusion in the lower chest, best seen on lateral view. On the AP view it is slightly improved since 07/17/2021. WSN: [id number] Ordering Physician: Tara Vasquez Dictated By: Morgan Hawthorne MD Dictated Date/Time: 07/18/21 1:53 pm Reviewed By: Morgan Hawthorne MD Signed By: Morgan Hawthorne MD Signed Date/Time: 07/18/21 1:53 pm Transcribed By: LEATHA Transcribed Date/Time: 07/18/21 1:46 pm * Exam Date Time Procedure Performing Provider Status 07/17/21 6:55 AM Chest Portable Sonia Yu (Verified) Notes: (Chest Portable) Reason For Exam: Tube Placement RESULT: Chest Portable Chest Portable Reason: Tube Placement; Clinical Question(s): Tube Placement COMPARISON: 07/16/2021 FINDINGS: Left basilar pleural drain is not well assessed on this exam. The left pneumothorax is not seen on this exam. Improved aeration of the left base with some residual left basilar consolidation. Stable mild right basilar consolidation. Stable groundglass in the right mid and lower lung zones. IMPRESSION: Left pleural drain is not well assessed on this exam No evidence of pneumothorax on the current exam. Improved left basilar aeration. Right pleural-parenchymal disease is stable WSN: [id number] Ordering Physician: Candelaria Goodman Dictated By: Claude Hawley MD Dictated Date/Time: 07/17/21 7:39 am Reviewed By: Claude Hawley MD Signed By: Claude Hawley MD Signed Date/Time: 07/17/21 7:39 am Transcribed By: LEATHA Transcribed Date/Time: 07/17/21 7:37 am * Exam Date Time Procedure Performing Provider Status 07/16/21 6:22 AM Chest Portable Jennifer Baltazar; Александр ( Verified) Notes: (Chest Portable) Reason For Exam: Tube Placement RESULT: Chest Portable Chest Portable INDICATION: Reason: Tube Placement; Clinical Question(s): Tube Placement COMPARISON: 07/15/2021 FINDINGS: LINES AND TUBES: A left-sided pigtail drainage catheter is noted in the lower hemithorax, similar to prior examination. LUNGS AND PLEURA: There is mild improved aeration in both lungs with persistent patchy opacity in the right mid lowerlung and left mid lower base. The previously seen pneumothorax is no longer identified. There are small bilateral pleural effusions. HEART, MEDIASTINUM AND NNAMDI: The cardiac silhouette is suboptimally evaluated due to patient's positioning. The mediastinal contours are unchanged. BONES AND SOFT TISSUES: No acute abnormality. IMPRESSION: No appreciable pneumothorax. Stable left lower hemithorax pigtail catheter. Improved aeration in the upper lobes with persistent hazy and patchy opacities in both mid lower lungs probably a combination of atelectasis and layering effusions. However, clinical correlation to exclude bibasilar pneumonia is advised. WSN: [id number] Ordering Physician: Nico Shields Dictated By: Amy Torres MD Dictated Date/Time: 07/16/21 9:25 am Reviewed By: Amy Torres MD Signed By: Amy Torres MD Signed Date/Time: 07/16/21 9:25 am Transcribed By: LEATHA Transcribed Date/Time: 07/16/21 9:02 am * Exam Date Time Procedure Performing Provider Status 07/15/21 6:24 PM Chest Portable Sherrie Pierce (V erified) Notes: (Chest Portable) Reason For Exam: Tube Placement RESULT: Chest Portable Chest Portable Reason: Tube Placement; Clinical Question(s): Tube Placement; Special Instructions: Pt in chestnut endoscopy COMPARISON: 07/15/2021 at 10:51 CT chest from 07/12/2021 FINDINGS: LINES AND TUBES: New left pleural pigtail catheter in the base of the left thorax. LUNGS AND PLEURA: Left basilar consolidation. Mild hazy opacity in the right lower lung slightly increased from before.. Normal pulmonary vascularity. Decreased small left pleural effusion. Trace right pleural effusion. A line along the left hemithorax could represent a trace pneumothorax. HEART, MEDIASTINUM AND NNAMDI: Unchanged cardia mediastinal silhouette with prominent epicardial fat. BONES AND SOFT TISSUES: No acute abnormality. IMPRESSION: Status post left pleural pigtail catheter placement with decreased, now small left pleural effusionand possible trace left lateral pneumothorax. Left basilar airspace opacity is unchanged. Mild hazy opacity in the right lung is slightly increased. These findings were communicated via cortext to Dr. Phillips at 18:38 on 07/15/2021. WSN: [id number] Ordering Physician: Nico Shields Dictated By: Emanuel Mena MD Dictated Date/Time: 07/15/21 6:39 pm Reviewed By: Emanuel Mena MD Signed By: Emanuel Mena MD Signed Date/Time: 07/15/21 6:39 pm Transcribed By: LEATHA Transcribed Date/Time: 07/15/21 6:32 pm * Exam Date Time Procedure Performing Provider Status 07/15/21 11:05 AM Chest Portable Murphy Moncada; Александр ( Verified) Notes: (Chest Portable) Reason For Exam: Shortness of Breath RESULT: Chest Portable Chest Portable Reason: Shortness of Breath; Clinical Question(s): Pleural Effusion COMPARISON: 07/12/2021 FINDINGS: LINES AND TUBES: None. LUNGS AND PLEURA: Bilateral pleural effusions, left greater than right are essentially unchanged. Left basal consolidation is stable. No pulmonary vascular congestion or pneumothorax. HEART, MEDIASTINUM AND NNAMDI: Heart is normal in size. Stable upper mediastinal and hilar contour. BONES AND SOFT TISSUES: No acute abnormality. IMPRESSION: Unchanged bilateral pleural parenchymal disease. WSN: [id number] Ordering Physician: Tara Vasquez Dictated By: Jonelle Lebron MD, I Dictated Date/Time: 07/15/21 12:28 p Reviewed By: Jonelle Lebron MD, I Signed By: Jonelle Lebron MD, I Signed Date/Time: 07/15/21 12:28 pm Transcribed By: LEATHA Transcribed Date/Time: 07/15/21 12:26 pm * Exam Date Time Procedure Performing Provider Status 07/12/21 9:47 AM Chest Portable Zebian , Amelia; Auth (V erified) Notes: (Chest Portable) Reason For Exam: Cough RESULT: Chest Portable Chest Portable Reason: Cough; Clinical Question(s): Aspiration COMPARISON: Multiple priors, most recently 07/11/2021. FINDINGS: Suboptimal examination secondary to patient body habitus and imaging technique. LINES AND TUBES: None. LUNGS AND PLEURA: No gross change in probable small to moderate left pleural effusion and left basilar airspace disease. No gross change in the right chest. Difficult to exclude a developing small pleural effusion in the right chest given the poor imaging technique. No pneumothorax; however again, given the imaging technique a small pneumothorax could easily be overlooked. HEART, MEDIASTINUM AND NNAMDI: No gross change. BONES AND SOFT TISSUES: No acute abnormality. IMPRESSION: Severely degraded examination. No gross significant change. Recommend repeat examination when clinically appropriate. A [place] message has been communicated via the [employer] system on 07/12/2021 10:40 AM, Message ID [id number]. WSN: [id number] Ordering Physician: Reggie Davila Dictated By: Cecil Elizondo MD Dictated Date/Time: 07/12/21 10:40 a Reviewed By: Cecil Elizondo MD Signed By: Cecil Elizondo MD Signed Date/Time: 07/12/21 10:40 am Transcribed By: LEATHA Transcribed Date/Time: 07/12/21 10:37 am * Exam Date Time Procedure Performing Provider Status 07/11/21 10:07 AM Chest Portable Asya Wiseman; Александр (Verified) Notes: (Chest Portable) Reason For Exam: CHF RESULT: Chest Portable Chest Portable Reason: CHF; Clinical Question(s): Aspiration COMPARISON: 07/11/2021 and 07/09/2021. FINDINGS: LINES AND TUBES: None. LUNGS AND PLEURA: Again demonstrated is a large left pleural effusion with loculated component in the lateral upper left lung field. Underlying airspace disease cannot be excluded. No pneumothorax. HEART, MEDIASTINUM AND NNAMDI: The cardiac mediastinal silhouette remains enlarged. BONES AND SOFT TISSUES: No acute abnormality. IMPRESSION: Stable abnormal chest radiograph. WSN: [id number] Ordering Physician: Reggie Davila Dictated By: Rossy Grove MD Dictated Date/Time: 07/11/21 10:44 a Reviewed By: Rossy Grove MD Signed By: Rossy Grove MD Signed Date/Time: 07/11/21 10:44 am Transcribed By: LEATHA Transcribed Date/Time: 07/11/21 10:43 am * Exam Date Time Procedure Performing Provider Status 07/11/21 12:26 AM Chest Portable Carmen Yu; Aut h (Verified) Notes: (Chest Portable) Reason For Exam: Shortness of Breath RESULT: Chest Portable Chest Portable performed upright at 12:12 AM Reason: Shortness of Breath; Clinical Question(s): CHF COMPARISON: Multiple prior chest x-rays, the most recent of which is dated 07/09/2021. FINDINGS: LINES AND TUBES: None. LUNGS AND PLEURA: Interval enlargement of the left pleural effusion, now moderate. There is adjacent opacity of the left mid to lower lung with hazy opacity remaining left upper lung. The right lung is clear and thereis no evidence of right pleural effusion. No pneumothorax. HEART, MEDIASTINUM AND NNAMDI: Heart is normal in size. Normal upper mediastinal and hilar contour. BONES AND SOFT TISSUES: No acute abnormality. IMPRESSION: Enlargement of the left pleural effusion, now moderate with adjacent airspace opacity which may reflect atelectasis or pneumonia. WSN: [id number] Ordering Physician: Lane Altman Dictated By: Pamela Mario MD Dictated Date/Time: 07/11/21 8:06 am Reviewed By: Pamela Mario MD Signed By: Pamela Mario MD Signed Date/Time: 07/11/21 8:06 am Transcribed By: LEATHA Transcribed Date/Time: 07/11/21 8:05 am * Exam Date Time Procedure Performing Provider Status 07/09/21 7:55 AM Chest Portable Candelaria Pierce; Auth (V erified) Notes: (Chest Portable) Reason For Exam: Chest Pain;Other: RESULT: Chest Portable Chest Portable Hx of Present Illness: c o left chest pain under breast worse with inspiration and worsening SOB x1day.; Reason: Other:; Chest Pain; Clinical Question(s): CHF COMPARISON: 01/15/2021. FINDINGS: LINES AND TUBES: None. LUNGS AND PLEURA: Low lung volumes with mild basilar atelectasis. Left costophrenic angle is excluded from the [id number]. Lungs are otherwise clear with no consolidation. No pleural effusion. No pneumothorax. HEART, MEDIASTINUM AND NNAMDI: Stable enlargement of the cardiomediastinal silhouette may be in part due to low lung volumes. BONES AND SOFT TISSUES: No acute abnormality. IMPRESSION: No acute abnormality. WSN: [id number] Ordering Physician: Laverne Koch Dictated By: Emy Wasserman MD Dictated Date/Time: 07/09/21 8:35 am Reviewed By: Emy Wasserman MD Signed By: Emy Wasserman MD Signed Date/Time: 07/09/21 8:35 am Transcribed By: LEATHA Transcribed Date/Time: 07/09/21 8:33 am Vital Signs Most recent to oldest [Reference Range]: 1 2 3 Weight 94.5 kg (07/20/21 5:51 AM) 161.9 kg (07/19/21 11:52 AM) Oxygen Saturation [94-100 %] 96 % (07/21/21 11:00 AM) 95 % (07/21/21 7:00 AM) 93 % *L* (07/21/21 4:09 AM) Pulse Rate [55-90 bpm] 68 bpm (07/21/21 11:00 AM) 70 bpm (07/21/21 7:35 AM) 70 bpm (07/21/21 7:35 AM) Blood Pressure [90-138/55-84 mm Hg] 101/56mm Hg (07/21/21 11:00 AM) 113/56mm Hg (07/21/21 7:35 AM) 113/56mm Hg (07/21/21 7:35 AM) Respiratory Rate [16-30 br/min] 16 br/min (07/21/21 1:01 PM) 18 br/min (07/21/21 12:01 PM) 18 br/min (07/21/21 11:00 AM) Temperature [96.8-100.4 DegF] 98.0 DegF (07/21/21 11:00 AM) 97.6 DegF (07/21/21 7:00 AM) 98.2 DegF (07/21/21 4:09 AM) Liters per Minute 2 L/min (07/21/21 11:00 AM) 2 L/min (07/21/21 7:00 AM) 2 L/min (07/21/21 4:09 AM) Mode of Delivery (Oxygen) Nasal cannula (07/21/21 11:00 AM) Nasal cannula (07/21/21 7:00 AM) Nasal cannula (07/21/21 4:09 AM) Blood pressure sites Arm, left (07/21/21 11:00 AM) Arm, left (07/21/21 7:00 AM) Arm, left (07/21/21 4:09 AM) Temperature Route Oral (07/21/21 11:00 AM) Oral (07/21/21 7:00 AM) Oral (07/21/21 4:09 AM) Weight Obtained Via Bed scale (07/19/21 11:52 AM) Social History Social History Type Response Smoking Status Never entered on: 05/15/18 Sex
--- OUTSIDE RECORDS SUMMARY | 2022-10-04 17:51 | XMS_ITS | Continuity of Care Document ---
Author Name Unknown Organization [facility] As [address] [place] [address]- Care Team Providers Care Transcript Clerk Name Role Phone Sanaz WILKINS, Matheus Castro Primary Care Physician [place] [facility] [place] 07/06/19 - 07/16/[address] [place] [address]- [facility] Attending Physician: AdmMook [id number] Admitting Physician: AdmtrRaji Referring Physician: AdmtrMook8 Allergies, Adverse Reactions, Alerts Substance Reaction Severity Status clindamycin Hives Active penicillin rash Active aspirin Active Bee Stings Active Contrast Dye urticaria Active Latex anaphylaxis Active antivenin (black spider) Active Immunizations Given and Recorded Vaccine Date Status Refusal Reason influenza virus vaccine, inactivated 1 05/15/18 Gi kyle tetanus/diphtheria/pertussis, acel(Tdap) 05/07/09 Given 1Result Comment: [05/15/2018] 02421-828-24 Medications amLODIPine 5 mg oral tablet 5 [...] 01/29/19 17:13:14 EDT, Route to Pharmacy Electronically, [id number], [facility] Start Date: [...] Gm, 0 Refills, Maintenance, 05/23/18 10:06:41 EST, [place], 1 sprays Nares, Both 2 times a [...] 12/28/18 15:10:14 EDT, Route to Pharmacy Electronically, [id number], [id number] Start Date: 12/28/18 Status: Ordered lidocaine 5% topical film APPLY ONE PATCH TO THE KNEE AND APPLY ONE PATCH TO THE LOWER BACK DAILY UTD. Start Date: 06/01/18 Status: Ordered lisinopril 40 mg oral tablet See Instructions, # 30 tablet, Refills 5 Tot. Refills 5, TAKE 1 TABLET BY MOUTH EVERY MORNING, [facility] #[id number] Start Date: 01/02/19 Status: Ordered magnesium oxide [...] 12/28/18 15:03:05 EDT, Route to Pharmacy Electronically, [id number], [facility] #[id number] Start Date: 12/28/18 Status: Ordered traZODone 50 [...] Painful peripheral neuropath y - NOS(Confirmed) Active long-term prescription benzo 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
--- OUTSIDE RECORDS SUMMARY | 2022-10-04 17:51 | XMS_ITS | Continuity of Care Document ---
Author Name Unknown Organization [facility] Eddie Aung lt Address [address] [place] [address]- Care Team Providers Care Double Needle Stitcher Name Role Phone Tal WILKINS, Brown Paz Primary Care Physician [phone] [place]counter [facility] [place] 07/06/22 - 08/05/22 [facility] [place] Adult [address] [place] [address]- Attending Physician: Admtr, Mook8 Admitting Physician: Admtr, Mook8 Referring Physician: Admtr, Ar8 Allergies, Adverse Reactions, [...] Reason: Med Not Available 2Result Comment: [05/15/2018] 99527-179-48 3Result Comment: [id number] 4Result Comment: [id number] Medications albuterol CFC free 90 mcg/inh inhalation [...] Gm, 11 Refills, Maintenance, 07/08/20 16:47:00 EST, [place], [facility], 1 sprays [...] 04/02/22 5:55:00 EDT, Route to Pharmacy Electronically, [facility], 191, cm, 02/11/22 11:45:00 EDT, Height, 170, kg, 02/05/22 22:35:00 EDT, . Start Date: 04/02/22 Status: Ordered hydrOXYzine hydrochloride 25 mg oral tablet 1 tablet, By Mouth, 3 times a day, # 84 tablet, 5 Refills, Maintenance, 06/11/22 11:15:00 EST, [facility], 191, cm, 02/11/22 11:45:00 EDT, [...] COMMUNICATE SUGARS WITH PCP TO TITRATE LANTUS. [phone], 08/28... 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 Refills 3, Maintenance, 03/14/19 13:59:16 EDT, Route to Pharmacy Electronically, [id number], [facility] hydrOXYzine hydrochloride [...] 12/28/18 15:10:14 EDT, Route to Pharmacy Electronically, [id number], [facility][id number] lisinopril 40 mg oral tablet: See Instructions, # 30 tablet, Refills 5 Tot. Refills 5, TAKE 1 TABLET BY MOUTH EVERY MORNING, [facility] #[id number] magnesium oxide 400 mg (240 mg elemental [...] 12/28/18 15:03:05 EDT, Route to Pharmacy Electronically, [id number], [id number] Documented Medications Documented LORazepam 2 mg oral [...] Care Nurse Name: Aviva Howard RN Position: S RN Member Role: Primary Care Nurse Name: Hilda Doyle RN Position: S RN Supv Member Role: Primary Care Nurse Name: Kimmy Ahumada NP Position: [facility] Associate Professional Member Role: Primary Care Nurse Address: Address: [address] [place] [address]- [place] Name: Bruce Mccurdy MD Position: [facility] Renal MD Member Role: Lifetime Consulting Physician Address: Address: [address] [place] [address], [address] [facility] [place] [address]- [place] Name: JO GONZALEZ RN Position: [facility] RN Member Role: Primary Care Nurse Name: Shelby Luna RN Position: [facility] RN Member Role: Primary Care Nurse Name: Sarina Camejo RN Position: [facility] RN Member Role: Primary Care Nurse Name: Lachelle Shine RN Position: [facility] RN Member Role: Primary Care Nurse Name: Leilani Lerma RN Position: [facility] Wound Member Role: Primary Care Nurse Name: Sandrita Portillo LPN Position: [facility] RN Member Role: Primary Care Nurse Name: Corina Munoz RN Position: [facility] RN Member Role: Primary Care Nurse Name: Vania Hernandez Position: [facility] RN Member Role: Primary Care Nurse Name: Mukul Dougherty RN Position: [facility] RN Member Role: Primary Care Nurse Name: Hammad Gambino RN Position: [facility] RN Member Role: Primary Care Nurse Name: Kenia Rao RN Position: [facility] RN Member Role: Primary Care Nurse Name: Michele Villavicencio RN Position: [facility] RN Member Role: Primary Care Nurse Name: Brown Parada MD Position: [facility] Primary Care Physician Member Role: PCP Address: Address: [address] [place] [address]- [place] Name: Charlette Lopez RN Position: [facility] RN Member Role: Primary Care Nurse Name: Elena Sheikh RN Position: [facility] RN Member Role: Primary Care Nurse Name: Theodora Serna RN Position: [facility] KRISTYO RN Member Role: Primary Care Nurse Name: Yang Silva RN Position: [facility] RN Member Role: Primary Care Nurse Name: Xiomara Mario RN Position: [facility] RN Member Role: Primary Care Nurse Name: Meg Norman RN Position: [facility] RN Member Role: Primary Care Nurse Name: Latanya Garza RN Position: [facility] RN Member Role: Primary Care Nurse Name: Jaimie Gibson RN Position: S RN Member Role: Primary Care Nurse Name: Carmen Bruner RN Position: [facility] RN Member Role: Primary Care Nurse Name: Kirill Mccartney RN Position: [facility] RN Member Role: Primary Care Nurse Name: Chacha Hassan RN Position: [facility] RN Member Role: Primary Care Nurse Name: Earlene Grayson RN Position: [facility] SN RN Member Role: Primary Care Nurse Name: Cem Carroll MD Position: [facility] Renal MD Member Role: Lifetime Consulting Physician Address: Address: [address] [place] [address] [facility] [address] Name: Eusebia Hassan RN Position: [facility] RN Member Role: Primary Care Nurse Care Team Related Persons Name: FRANCJIMENEZ Address: [address] [place] [address] Name: ANYA DE JESUS Address: [address] [place] [address]
--- OUTSIDE RECORDS SUMMARY | 2022-10-04 17:51 | XMS_ITS | Continuity of Care Document ---
Author Name Unknown Organization [facility] Aung lt Address [address] [place] [address]- Care Team Providers Care Mine Surveyor Name Role Phone Tal WILKINS, Brown Paz Primary Care Physician Encounter [facility] [place] Date(s): 06/18/22 - 07/18/22 [facility] Adult [address] [place] [address]- Allergies, Adverse Reactions, Alerts Substance Reaction Severity [...] Reason: Med Not Available 2Result Comment: [05/15/2018] 33128-238-15 3Result Comment: [id number] 4Result Comment: [id number] Medications albuterol CFC free 90 mcg/inh inhalation [...] Gm, 11 Refills, Maintenance, 07/08/20 16:47:00 EST, [place], [facility], 1 sprays [...] 04/02/22 5:55:00 EDT, Route to Pharmacy Electronically, [facility], 191, cm, 02/11/22 11:45:00 EDT, Height, 170, kg, 02/05/22 22:35:00 EDT, . Start Date: 04/02/22 Status: Ordered hydrOXYzine hydrochloride 25 mg oral tablet 1 tablet, By Mouth, 3 times a day, # 84 tablet, 5 Refills, Maintenance, 06/11/22 11:15:00 EST, [facility], 191, cm, 02/11/22 11:45:00 EDT, [...] COMMUNICATE SUGARS WITH PCP TO TITRATE LANTUS. [phone], 08/28... 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 neuropathy - NOS Confirmed 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 Confirmed Active Limited mobility Confirmed Active Severe obesity Confirmed Active Non-insulin dependent type 2 diabetes mellitus Confirmed Active Social History Social History Type Response Smoking Status Never entered on: 05/15/18 Sex Patient Care team information Care Team Personnel Name: Gladis Carrizales RN Position: [facility] RN Member [...] Member Role: Primary Care Nurse Address: Address: [address] [place] [id number] Name: Bruce Mccurdy MD Position: [facility] Renal MD Member Role: Lifetime Consulting Physician Address: Address: [address] [place] [address], [address] [facility] [place] [place] [address] Name: Malika Richards RN Position: [facility] Double Head Machine Operator Member Role: Primary Care Nurse Name: JO [...] Physician Member Role: PCP Address: Address: [address] [place] [address]- [place] Name: Charlette Lopez RN [facility]: [facility] [...] Member Role: Lifetime Consulting Physician Address: Address: [address] [place] [address] [facility] [place] [address]- [place] Name: Eusebia Hassan RN Position: [facility] RN Member Role: Primary Care Nurse Care Team Related Persons Name: JIMENEZ BRUNER Address: [address] [place] [address] Name: ANYA DE JESUS Address: [address] [place] [address]
--- OUTSIDE RECORDS SUMMARY | 2022-10-04 17:51 | XMS_ITS | Continuity of Care Document ---
Author Name Unknown Organization [facility] Aung lt Address [address] [place] [address]- Care Team Providers Care Generator Technician Name Role Phone Tal WILKINS, Brown Paz Primary Care Physician Encounter [facility] Date(s): 09/21/21 - 10/21/21 [facility] Adult [address] [place] [address]- Allergies, Adverse Reactions, Alerts Substance Reaction Severity [...] Reason: Med Not Available 2Result Comment: [05/15/2018] 82133-538-86 3Result Comment: [id number] 4Result Comment: [id number] Medications acetaminophen 325 mg oral tablet 650 [...] Gm, 11 Refills, Maintenance, 07/08/20 16:47:00 EST, [place], [facility], 1 sprays [...] Details, Route to Pharmacy Electronically, [facility], 190, cm, 07/27/21 12:49... Start Date: 07/30/21 Status: Ordered hydrOXYzine hydrochloride 25 mg oral tablet 1 tablet, By Mouth, 3 times a day, BUBBLE PACK, # 84 tablet, 5 Refills, Maintenance, 07/30/21 9:02:00 EST, [facility], 190, cm, 07/27/21 12:49:00 EST, [...] 0 Refills, Maintenance, 07/21/21 11:47:00 EST, [place], [facility], Partial fill upon [...] COMMUNICATE SUGARS WITH PCP TO TITRATE LANTUS. [phone], 08/28... Start Date: 08/28/21 Status: Ordered One [...] 168 capsule, 5 Refills, 09/15/21 5:56:00 EDT, [facility], 191, cm, 08/28/21 11:32:00 EDT, Height, 168.5, kg, 08/18/21 22:23:00 EDT... Start Date: 09/15/21 Status: Ordered prazosin 5 mg oral capsule 5 mg, 1, capsule, By Mouth, Daily at bedtime, BUBBLE PACK, # 28 capsule, Refills 4, Tot. Refills 4,Maintenance, 04/02/21 8:22:00 EDT, Route to Pharmacy Electronically, [facility], 190, cm, 01/23/21 8:35:00 EDT, Height, 153, kg, 01/14/21... Start Date: 04/02/21 Status: Ordered ProAir HFA 90 mcg/inh inhalation aerosol 2 puffs, Inhalation, Every 4 hours, PRN Wheezing/Shortness of Breath, # 1 each, 5 Refills, Maintenance, 06/27/20 16:56:00 EST, [facility], Partial fill upon patient request [...]
--- OUTSIDE RECORDS SUMMARY | 2022-10-04 17:51 | XMS_ITS | Continuity of Care Document ---
Author Name Unknown Organization [facility] ter Address [address] [place] [address]- Care Team Providers Care Peoplesoft Hcm Developer Name Role Phone Sanaz WILKINS, Matheus Castro Primary Care Physician En[place] [facility] [place] Date(s): 12/05/19 - 12/12/[address] [address]- [facility] Discharge Disposition: A-D/C Home Attending Physician: Elliot COELHO, [place] Admitting Physician: Precious Haro MD Referring Physician: Not on Staff, Referring [...] kyle tetanus/diphtheria/pertussis, acel(Tdap) 05/07/09 Given 1Result Comment: [id number] 2Result Comment: [id number] 3Result Comment: [05/15/2018] 22509-685-53 Medications acetaminophen 325 mg oral tablet 650 [...] EDT, Supply Start Date: 12/12/19 Status: Ordered cephalexin monohydrate 500 mg oral capsule 2 capsule = 1,000 mg, By Mouth, Every 8 hours, for 4 days, # 24 capsule, 0 Refills, Acute 12/16/19 13:07:00 EDT, 12/12/19 13:07:00 EDT, Capsule, [facility], 191, cm, 07/23/19 14:30:00 EST, Height, 193.5, kg, 05/21/19 5:38:00 EST, Dry Weight Start Date: 12/12/19 Stop Date: 12/16/19 Status: Ordered clopidogrel 75 mg oral tablet [...] 15:00:53 EDT Start Date: 12/28/18 Status: Ordered Dilaudid 4 mg oral tablet See Instructions, PRN Pain , Moderate, Take 1 tablet as needed every 6 hours for 2 days, then every8 hours for 2 days, then every 12 hours for 2 days, then daily for 2 days, # 18 tablet, 0 Refills, Acute 12/20/19 9:00:00 EDT, 12/12/19 12:55:00 EDT, T... Start Date: 12/12/19 Stop Date: 12/20/19 Status: Ordered duloxetine 30 mg oral enteric [...] 12/12/19 13:24:00 EDT, Route to Pharmacy Electronically, [facility], 191, cm, 07/23/2013:30:00 EST, Height, 193.5, kg, 05/21/19 5:38:00 EST,... Start Date: 12/12/19 Status: Ordered Flonase 50 mcg/inh nasal spray 1 sprays, Nares, Both, 2 times a day, # 16 Gm, 0 Refills, Maintenance, 05/23/18 10:06:41 EST, [place], 1 sprays Nares, Both 2 times a [...] 08/06/19 14:53:00 EST, Route to Pharmacy Electronically, [facility], 191, cm, 07/23/19 14:30:00 EST, [...] Maintenance, 10/03/19 11:11:00 EDT, Tablet, [facility], 191, cm, 07/23/19 14:30:00 EST, Height, 193.5, kg, 05/21/19 5:38:00 EST, Dry Weight Start Date: 10/03/19 Status: Ordered Metoprolol Succinate ER 50 mg oral tablet, extended release 1 tablet = 50 mg, By Mouth, Daily, # 90 tablet, 3 Refills, Soft Stop, 08/06/19 14:50:00 EST, [facility], 191, cm, 07/23/19 14:30:00 EST, Height, 193.5, kg, 05/21/19 5:38:00 EST, Dry Weight Start Date: 08/06/19 Status: Ordered nystatin topical 200998 u/gm powder See Instructions, Topically 2 times [...] Maintenance,07/19/19 15:02:00 EST, Route to Pharmacy Electronically, [facility], 191, cm, 07/18/19 14:17:00 EST, Height, 193.5, kg, 05/21/19 5:38:00 E... Start Date: 07/19/19 Status: Ordered QUEtiapine 50 mg oral tablet 1 tablet = 50 mg, By Mouth, Daily, # 30 tablet, 5 Refills, Maintenance, 12/12/19 10:07:00 EDT, Tablet, [facility], 191, cm, 07/23/19 14:30:00 EST, Height, 193.5, kg, 05/21/19 5:38:00EST, Dry Weight Start Date: 12/12/19 Status: Ordered spironolactone 25 mg oral tablet 25 mg, 1, tablet, By Mouth, Daily, # 90 tablet, Refills 3, Tot. Refills 3, Maintenance, 12/28/18 15:03:05 EDT, Route to Pharmacy Electronically, [id number], [facility][id number] Start Date: 12/28/18 Status: Ordered traZODone 50 mg oral tablet 100 mg, 2, tablet, By Mouth, Daily at bedtime, # 60 tablet, Refills 5, Tot. 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) Active Limited mobility(Confirmed) Active Vital Signs Most recent to oldest [Reference Range]: 1 2 3 Weight 182.2 kg (12/06/19 8:00 AM) Oxygen Saturation [94-100 %] 97 % (12/12/19 2:06 PM) 94 % (12/12/19 5:03 AM) 94 % (12/11/19 7:55 PM) Pulse Rate [55-90 bpm] 64 bpm (12/12/19 2:06 PM) 62 bpm (12/12/19 8:28 AM) 63 bpm (12/12/19 5:03 AM) Blood Pressure [90-138/55-84 mm Hg] 139/68mm Hg *H* (12/12/19 2:06 PM) 148/68mm Hg *H* (12/12/19 8:28 AM) 149/70mm Hg *H* (12/12/19 5:03 AM) Respiratory Rate [16-30 br/min] 18 br/min (12/12/19 2:06 PM) 18 br/min (12/12/19 1:42 PM) 18 br/min (12/12/19 12:52 PM) Temperature [96.8-100.4 DegF] 98.4 DegF (12/12/19 2:06 PM) 97.4 DegF (12/12/19 5:03 AM) 97.8 DegF (12/11/19 7:55 PM) Liters per Minute 2 L/min (12/10/19 6:22 AM) 2 L/min (12/09/19 10:18 PM) 2 L/min (12/09/19 5:19 AM) Mode of Delivery (Oxygen) Room air (12/12/19 2:06 PM) Room air (12/12/19 5:03 AM) Room air (12/11/19 7:55 PM) Blood pressure sites Arm, left (12/12/19 2:06 PM) Arm, left (12/12/19 5:03 AM) Arm, left (12/11/19 7:55 PM) Temperature Route Oral (12/12/19 2:06 PM) Oral (12/12/19 5:03 AM) Oral (12/11/19 7:55 PM) Weight Obtained Via Bed scale (12/06/19 8:00 AM) Social History Social History Type Response Smoking Status Never entered on: 05/15/18 Sex
--- OUTSIDE RECORDS SUMMARY | 2022-10-04 17:51 | XMS_ITS | Continuity of Care Document ---
Author Name Unknown Organization [facility] Aung Address [address] [place] [address]- Care Team Providers Care Foundry Worker General Name Role Phone Sanaz WILKINS, Matheus Castro Primary Care Physician Encounter [facility] Date(s): 03/26/21 - 04/25/21 [facility] Adult [address] [place] [address]- Allergies, Adverse Reactions, Alerts Substance Reaction Severity [...] kyle tetanus/diphtheria/pertussis, acel(Tdap) 05/07/09 Given 1Result Comment: [id number] 2Result Comment: [id number] 3Result Comment: [05/15/2018] 19097-089-55 Medications acetaminophen 325 mg oral tablet 650 mg, By Mouth, Every 4 hours, PRN, Refills 0, Maintenance, Pain , Mild, 12/12/19 13:05:00 EDT Start Date: 12/12/19 Status: Ordered apixaban 5 mg oral tablet 1 tablet = 5 mg, By Mouth, 2 times a day, # 60 tablet, 3 Refills, Maintenance, 01/13/21 15:09:00 EDT, Tablet, [facility], Partial fill upon patient [...] 01/13/21 15:09:00 EDT, Route to Pharmacy Electronically, [facility], Partial fill upon patient [...] 01/13/21 15:09:00 EDT, Route to Pharmacy Electronically, [facility], Partial fill upon patient request [...] 01/18/21 11:37:00 EDT, Route to Pharmacy Electronically, [facility], Partial fill upon patient request if the prescription is for a errol... Start Date: 01/18/21 Status: Ordered Flonase 50 mcg/inh nasal spray 1 sprays, Nares, Both, 2 times a day, # 16 Gm, 11 Refills, Maintenance, 07/08/20 16:47:00 EST, [place], [facility], 1 sprays [...] Refills 0, Tot. Refills 0, Maintenance, dx: haexzbH40. 40, oxygen dependence Z99.81, 01/27/21 11:50:00 EDT, [...] 01/18/21 11:37:00 EDT, Route to Pharmacy Electronically, [facility], Partial fill upon patient request if the prescription is for a schedule II... Start Date: 01/18/21 Status: Ordered loperamide 2 mg oral tablet 1 tablet = 2 mg, By Mouth, Every 4 hours, PRN as needed for loose stool, not to exceed 16 mg/day, #100 tablet, 0 Refills, Maintenance, 04/28/20 13:13:00 EST, Tablet, [facility], Partial fill upon patient request, [...] 04/02/21 8:22:00 EDT, Route to Pharmacy Electronically, [facility], 190, cm, 01/23/21 8:35:00 EDT, Height, 153, kg, 01/14/21... Start Date: 04/02/21 Status: Ordered ProAir HFA 90 mcg/inh inhalation aerosol 2 puffs, Inhalation, Every 4 hours, PRN Wheezing/Shortness of Breath, # 1 each, 5 Refills, Maintenance, 06/27/20 16:56:00 EST, [facility], Partial fill upon patient request [...] Painful peripheral neuropath y - NOS(Confirmed) Active shelter prescription benzo diazepine use(Confirmed) Active Limited mobility(Confirmed) Active Non-insulin dependent type 2 diabetes mellitus(Confirmed) Active Social History Social History Type Response Smoking Status Never entered on: 05/15/18 Sex
--- OUTSIDE RECORDS SUMMARY | 2022-10-04 17:51 | XMS_ITS | Continuity of Care Document ---
Author Name Unknown Organization [facility] ter Address [address] [place] [address]- Care Team Providers Care Shearing Shed Hand Name Role Phone Brown Parada MD Primary Care Physician Encounter [facility] Date(s): 03/31/22 - 03/31/[address] [address]- Discharge Disposition: A-D/C Walkout Attending Physician: Not on Staff, Attending MD Admitting Physician: Not on Staff, Admitting MD Referring Physician: Not on Staff, Referring [...] Reason: Med Not Available 2Result Comment: [05/15/2018] 33493-429-82 3Result Comment: [id number] 4Result Comment: [id number] Medications apixaban 5 mg oral tablet 1 [...] Gm, 11 Refills, Maintenance, 07/08/20 16:47:00 EST, [place], [facility], 1 sprays [...] 0 Refills, Maintenance, 07/21/21 11:47:00 EST, Solution, [facility], Partial fill upon [...] COMMUNICATE SUGARS WITH PCP TO TITRATE LANTUS. [phone], 08/28... Start Date: 08/28/21 Status: Ordered One [...] dependent type 2 diabetes mellitus Confirmed Active Vital Signs Most recent to oldest [Reference Range]: 1 2 3 Oxygen Saturation [94-100 %] 94 % (03/31/22 6:31 PM) 96 % (03/31/22 3:42 PM) 94 % (03/31/22 1:44 PM) Pulse Rate [55-90 bpm] 93 bpm *H* (03/31/22 6:31 PM) 84 bpm (03/31/22 3:42 PM) 95 bpm *H* (03/31/22 1:44 PM) Blood Pressure [90-138/55-84 mm Hg] 132/87mm Hg (03/31/22 6:31 PM) 129/68mm Hg (03/31/22 3:42 PM) 123/68mm Hg (03/31/22 1:44 PM) Respiratory Rate [16-30 br/min] 18 br/min (03/31/22 6:31 PM) 18 br/min (03/31/22 3:42 PM) 18 br/min (03/31/22 1:44 PM) Temperature [96.8-100.4 DegF] 98.4 DegF (03/31/22 6:31 PM) 98.6 DegF (03/31/22 3:42 PM) 98.3 DegF (03/31/22 1:44 PM) Liters per Minute 3 L/min (03/31/22 11:17 AM) Mode of Delivery (Oxygen) Room air (10/26/22 6:31 PM) Room air (03/31/22 3:42 PM) Room air (03/31/22 1:44 PM) Blood pressure sites Arm, right (03/31/22 6:31 PM) Arm, right (03/31/22 3:42 PM) Arm, right (03/31/22 1:44 PM) Temperature Route Oral (03/31/22 6:31 PM) Oral (03/31/22 3:42 PM) Oral (03/31/22 1:44 PM) Social History Social History Type Response Smoking Status Never entered on: 05/15/18 Sex Patient Care team information Personnel Name: Tal WILKINS, Brown Paz Address: Address: [address] [place] [id number]
--- OUTSIDE RECORDS SUMMARY | 2022-10-04 17:51 | XMS_ITS | Continuity of Care Document ---
Author Name Unknown Organization [facility] Aung lt Address [address] [place] [address]- Care Team Providers Care Signal Person Name Role Phone Sanaz WILKINS, Matheus Castro Primary Care Physician Encounter [facility] Date(s): 07/11/20 - 08/10/20 [facility] Adult [address] [place] [address]- Attending Physician: AdmRaji lara Admitting Physician: AdmtrRaji Referring Physician: Admtr, Ar8 [...] kyle tetanus/diphtheria/pertussis, acel(Tdap) 05/07/09 Given 1Result Comment: [id number] 2Result Comment: [id number] 3Result Comment: [05/15/2018] 73760-580-84 Medications acetaminophen 325 mg oral tablet 650 mg, By Mouth, Every 4 hours, PRN, Refills 0, Maintenance, Pain , Mild, 12/12/19 13:05:00 EDT Start Date: 12/12/19 Status: Ordered albuterol CFC free 90 mcg/inh inhalation aerosol 2, puffs, Inhalation, Every 4 hours, PRN, # 18 Gm, Refills 5, Tot. Refills 5, Maintenance, 06/24/2115:37:00 EST, Aerosol, Route to Pharmacy Electronically, [id number], [facility], 191, [place], 06/24/20 13:40:00 EST,... Start Date: 06/24/20 Status: Ordered atorvastatin 80 mg oral tablet 1 tablet = 80 mg, By Mouth, Daily, # 90 tablet, 3 Refills, Maintenance, 04/28/20 13:17:00 EST, [place], [facility], Partial fill upon patient request, [place], 12/27/19 12:20:00 EDT, Height, 193.5, kg, 05/21/19 5:38:00 EST, Dry Weight Start Date: 04/28/20 Status: Ordered Basic metabolic panel Basic metabolic panel, See Instructions, # 1 each, Refills 0, Tot. Refills 0, Maintenance, To be obtained on Wednesday 12/13. For acute kidney injury (N17.9). Please forward results to Matehus Yo MD., 12/12/19 13:51:00 EDT, Supply Start Date: 12/12/19 Status: Ordered clopidogrel 75 mg oral tablet 75 mg, 1, tablet, By Mouth, Daily, # 30 tablet, Refills 5, Tot. Refills 5, Maintenance, 05/07/20 10:14:00 EST, Route to Pharmacy Electronically, [facility], 191, [place], 12/27/19 12:20:00 EDT, Height, 193.5, kg, 05/21/19 5:38:00 EST, Dry Weight Start Date: 05/07/20 Stop Date: 11/03/20 Status: Ordered cyanocobalamin 1000 mcg oral tablet, extended release 1 tablet = 1,000 mcg, By Mouth, Daily, # 30 tablet, 11 Refills, Maintenance, 02/21/20 10:38:00 EDT,[facility], 191, [place], 12/27/19 12:20:00 EDT, Height, 193.5, kg, 05/21/19 5:38:00 EST, Dry Weight Start Date: 02/21/20 Status: Ordered duloxetine 30 mg oral enteric coated capsule 1 capsule = 30 mg, By Mouth, 2 times a day, # 60 capsule, 5 Refills, Maintenance, 03/31/20 17:16:00EDT, [facility], 191, cm, 12/27/19 12:20:00 EDT, Height, 193.5, kg, 05/21/19 5:38:00 EST, Dry Weight Start Date: 03/31/20 Status: Ordered famotidine 20 mg oral tablet 20 mg, 1, tablet, By Mouth, 2 times a day, # 60 tablet, Refills 2, Tot. Refills 2, Maintenance, 12/12/19 13:24:00 EDT, Route to Pharmacy Electronically, [facility], 191, cm, 07/23/2013:30:00 EST, Height, 193.5, kg, 05/21/19 5:38:00 EST,... Start Date: 12/12/19 Status: Ordered Flonase 50 mcg/inh nasal spray 1 sprays, Nares, Both, 2 times a day, # 16 Gm, 11 Refills, Maintenance, 07/08/20 16:47:00 EST, [place], [facility], 1 sprays Nares, Both 2 times a day, 191, cm, 06/24/20 13:40:00 EST, Height, 193.5, kg, 05/21/19 5:38:00 EST, Dry Weight Start Date: 07/08/20 Status: Ordered gabapentin 300 mg oral capsule 300 mg, 1, capsule, By Mouth, 4 times a day, # 120 capsule, Refills 11, Tot. Refills 11, Maintenance, 07/24/20 17:44:00 EST, Route to Pharmacy Electronically, [facility], 191, cm, 06/24/20 13:40:00 EST, Height, 193.5, kg, 05/21/19 5:38:00... Start Date: 07/24/20 Stop Date: 07/19/21 Status: Ordered hydrOXYzine hydrochloride 25 mg oral tablet 1 tablet = 25 mg, By Mouth, 3 times a day, # 90 tablet, 11 Refills, Maintenance, 04/09/20 16:46:00 EST, Tablet, [facility], 191, cm, 12/27/19 12:20:00 EDT, Height, 193.5, kg, 05/21/19 5:38:00 EST, Dry Weight Start Date: 04/09/20 Status: Ordered isosorbide mononitrate 60 mg oral tablet, extended release 60 mg, 1, tablet, By Mouth, Daily in AM, # 90 tablet, Refills 0, Tot. Refills 0, Soft Stop, 02/20/20 14:34:00 EDT, Route to Pharmacy Electronically, [facility], 191, cm, 12/27/19 12:20:00 EDT, Height, 193.5, kg, 05/21/19 5:38:00 EST, Dry... Start Date: 02/20/20 Status: Ordered Lasix 40 mg oral tablet 40 mg, 1, tablet, By Mouth, 2 times a day, # 60 tablet, Refills 5, Tot. Refills 5, Maintenance, 03/31/20 17:16:00 EDT, Route to Pharmacy Electronically, [facility], 191, cm, 12/27/2011:20:00 EDT, Height, 193.5, kg, 05/21/19 5:38:00 EST,... Start Date: 03/31/20 Status: Ordered lisinopril 40 mg oral tablet 1 tablet = 40 mg, By Mouth, Daily, APPOINTMENT 02/26/20, # 10 tablet, 0 Refills, Maintenance, 02/22/20 13:44:00 EDT, Tablet, [facility], 191, cm, 12/27/19 12:20:00 EDT, [...] Start Date: 05/07/20 Status: Ordered nystatin topical 974860 u/gm powder See Instructions, Topically 2 times [...] Maintenance, 04/25/20 14:23:00 EST, Tablet, [facility], 191, cm, 12/27/19 12:20:00 EDT, Height, 193.5, kg, 05/21/19 5:38:00EST, Dry Weight Start Date: 04/25/20 Status: Ordered spironolactone 25 mg oral tablet 25 mg, 1, tablet, By Mouth, Daily, # 30 tablet, Refills 5, Tot. Refills 5, Maintenance, 02/19/20 9:52:00 EDT, Route to Pharmacy Electronically, [facility], 191, cm, 12/27/19 12:20:00EDT, Height, 193.5, kg, 05/21/19 5:38:00 EST, Dry Weight Start Date: 02/19/20 Status: Ordered traZODone 50 mg oral tablet 100 mg, 2, tablet, By Mouth, Daily at bedtime, # 60 tablet, Refills 5, Tot. Refills 5, Maintenance,06/23/20 11:13:00 EST, Route to Pharmacy Electronically, [facility], 191, cm, 12/27/19 12:20:00 EDT, Height, 193.5, kg, 05/21/19 5:38:00 E... Start Date: 06/23/20 Status: Ordered Vitamin D3 2000 intl units oral tablet 1 tablet = 2,000 International_Units, By Mouth, Daily, # 90 tablet, 1 Refills, Maintenance, 02/20/20 14:34:00 EDT, [facility], 191, cm, 12/27/19 12:20:00 EDT, [...] Painful peripheral neuropath y - NOS(Confirmed) Active group home prescription benzo 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
--- OUTSIDE RECORDS SUMMARY | 2022-10-04 17:51 | XMS_ITS | Continuity of Care Document ---
Author Name Unknown Organization [facility] Aung Address [address] [place] [address]- Care Team Providers Care Dull Coat Mill Operator Name Role Phone Sanaz WILKINS, Matheus Castro Primary Care Physician Encounter [facility] Date(s): 08/07/20 - 09/06/20 [facility] Adult [address] [place] [address]- Allergies, Adverse Reactions, Alerts Substance Reaction Severity [...] kyle tetanus/diphtheria/pertussis, acel(Tdap) 05/07/09 Given 1Result Comment: [id number] 2Result Comment: [id number] 3Result Comment: [05/15/2018] 18903-411-38 Medications acetaminophen 325 mg oral tablet 650 mg, By Mouth, Every 4 hours, PRN, Refills 0, Maintenance, Pain , Mild, 12/12/19 13:05:00 EDT Start Date: 12/12/19 Status: Ordered albuterol CFC free 90 mcg/inh inhalation aerosol 2, puffs, Inhalation, Every 4 hours, PRN, # 18 Gm, Refills 5, Tot. Refills 5, Maintenance, 06/24/2115:37:00 EST, Aerosol, Route to Pharmacy Electronically, [id number], [facility], 191, cm, 06/24/20 [...] EDT, Route to Pharmacy Electronically, [facility], 191, cm, 07/23/2013:30:00 EST, Height, 193.5, kg, 05/21/19 5:38:00 EST,... Start Date: 12/12/19 Status: Ordered Flonase 50 mcg/inh nasal spray 1 sprays, Nares, Both, 2 times a day, # 16 Gm, 11 Refills, Maintenance, 07/08/20 16:47:00 EST, [place], [facility], 1 sprays Nares, Both 2 times a day, 191, cm, 06/24/20 13:40:00 EST, Height, 193.5, kg, 05/21/19 5:38:00 EST, Dry Weight Start Date: 07/08/20 Status: Ordered gabapentin 300 mg oral capsule 300 mg, 1, capsule, By Mouth, 4 times a day, # 120 capsule, Refills 11, Tot. Refills 11, Maintenance, 07/24/20 17:44:00 EST, Route to Pharmacy Electronically, [facility], 191, cm, 06/24/20 13:40:00 EST, [...] EDT, Route to Pharmacy Electronically, [facility], 191, cm, 12/27/2011:20:00 EDT, Height, 193.5, kg, 05/21/19 5:38:00 EST,... Start Date: 03/31/20 Status: Ordered lisinopril 40 mg oral tablet 1 tablet = 40 mg, By Mouth, Daily, APPOINTMENT 02/26/20, # 10 tablet, 0 Refills, Maintenance, 02/22/20 13:44:00 EDT, Tablet, [facility], 191, cm, 12/27/19 12:20:00 EDT, [...] Start Date: 05/07/20 Status: Ordered nystatin topical 339556 u/gm powder See Instructions, Topically 2 times [...] EST, Route to Pharmacy Electronically, [facility], 191, cm, 12/27/19 12:20:00 EDT, Height, 193.5, kg, 05/21/19 5:38:00 E... Start Date: 06/23/20 Status: Ordered Vitamin D3 2000 intl units oral tablet 1 tablet = 2,000 International_Units, By Mouth, Daily, # 90 tablet, 1 Refills, Maintenance, 02/20/20 14:34:00 EDT, [facility], 191, cm, 12/27/19 12:20:00 EDT, [...]
--- OUTSIDE RECORDS SUMMARY | 2022-10-04 17:51 | XMS_ITS | Continuity of Care Document ---
Author Name Unknown Organization [facility] Aung lt Address [address] [place] [address]- Care Team Providers Care Loss Prevention Lead Name Role Phone Tal WILKINS, Brown Paz Primary Care Physician Encounter [facility] Date(s): 06/25/22 - 07/25/22 [facility] Adult [address] [place] [address]- Allergies, Adverse Reactions, Alerts Substance Reaction Severity [...] Reason: Med Not Available 2Result Comment: [05/15/2018] 36026-006-12 3Result Comment: [id number] 4Result Comment: [id number] Medications albuterol CFC free 90 mcg/inh inhalation [...] Gm, 11 Refills, Maintenance, 07/08/20 16:47:00 EST, [place], [facility], 1 sprays [...] 04/02/22 5:55:00 EDT, Route to Pharmacy Electronically, [facility], 191, cm, 02/11/22 11:45:00 EDT, Height, 170, kg, 02/05/22 22:35:00 EDT, . Start Date: 04/02/22 Status: Ordered hydrOXYzine hydrochloride 25 mg oral tablet 1 tablet, By Mouth, 3 times a day, # 84 tablet, 5 Refills, Maintenance, 06/11/22 11:15:00 EST, [facility], 191, cm, 02/11/22 11:45:00 EDT, [...] COMMUNICATE SUGARS WITH PCP TO TITRATE LANTUS. [phone], 08/28... Start Date: 08/28/21 Status: Ordered One [...] capsule, 2 Refills, Maintenance, 05/17/22 11:00:00 EST, [facility], 191, cm, 02/11/22 11:45:00 EDT, [...] tablet, 5 Refills, Maintenance, 07/08/22 10:43:00 EST, [facility], 191, cm, 02/11/22 11:45:00 EDT, Height, 170, kg, 02/05/22 22:35:00 EDT, Dry Weight Start Date: 07/08/22 Status: Ordered Vitamin D3 2000 intl units oral tablet 1 tablet, By Mouth, Daily, # 28 tablet, 4 Refills, [facility], 191, cm, 08/28/21 11:32:00 EDT, [...] Painful peripheral neuropathy - NOS Confirmed Active detention prescription benzodiazepine use Confirmed Active Limited mobility Confirmed Active Severe obesity Confirmed Active Non-insulin dependent type 2 diabetes mellitus Confirmed Active Social History Social History Type Response Smoking Status Never entered on: 05/15/18 Sex Patient Care team information Care Team Personnel Name: All BOSS Gladis Loyolamagdaleno Position: [facility] RN Member [...] Member Role: Primary Care Nurse Address: Address: [address] [place] [address] [id number] Name: Bruce Mccurdy MD Position: [facility] Renal MD Member Role: Lifetime Consulting Physician Address: Address: [address] [place] [address], [address] [facility] [place], [place] [address] Name: Malika Richards RN Position: [facility] Foreign Service Teacher Member Role: Primary Care Nurse Name: JO [...] Care Nurse Name: Michele Villavicencio RN Position: [facility] RN Member Role: Primary Care Nurse Name: Brown Parada MD Position: [facility] Primary Care Physician Member Role: PCP Address: Address: [address] [place] [address]- [place] Name: Charlette Lopez RN Position: [facility] [...] Member Role: Lifetime Consulting Physician Address: Address: [address] [place] [address] [facility] [place] [address]- [place] Name: Eusebia Hassan RN Position: [facility] RN Member Role: Primary Care Nurse Care Team Related Persons Name: JIMENEZ BRUNER Address: home [address] [place] [address] Name: ANYA DE JESUS Address: home [address] [place] [address]
--- OUTSIDE RECORDS SUMMARY | 2022-10-04 17:51 | XMS_ITS | Continuity of Care Document ---
Author Name Unknown Organization [facility] Aung lt Address [address] [place] [address]- Care Team Providers Care Barrel Rifler Broach Name Role Phone Tal WILKINS, Brown Paz Primary Care Physician [phone] Encounter [facility] Date(s): 06/03/22 - 07/03/22 [facility] Adult [address] [place] [address]- Allergies, Adverse Reactions, Alerts Substance Reaction Severity [...] Reason: Med Not Available 2Result Comment: [05/15/2018] 75821-024-76 3Result Comment: [id number] 4Result Comment: [id number] Medications albuterol CFC free 90 mcg/inh inhalation [...] Gm, 11 Refills, Maintenance, 07/08/20 16:47:00 EST, [place], [facility], 1 sprays [...] 04/02/22 5:55:00 EDT, Route to Pharmacy Electronically, [facility], 191, cm, 02/11/22 11:45:00 EDT, Height, 170, kg, 02/05/22 22:35:00 EDT, . Start Date: 04/02/22 Status: Ordered hydrOXYzine hydrochloride 25 mg oral tablet 1 tablet, By Mouth, 3 times a day, # 84 tablet, 5 Refills, Maintenance, 06/11/22 11:15:00 EST, [facility], 191, cm, 02/11/22 11:45:00 EDT, [...] COMMUNICATE SUGARS WITH PCP TO TITRATE LANTUS. [phone], 08/28... Start Date: 08/28/21 Status: Ordered One [...] Painful peripheral neuropathy - NOS Confirmed Active assisted prescription benzodiazepine use Confirmed Active Limited mobility Confirmed Active Severe obesity Confirmed Active Non-insulin dependent type 2 diabetes mellitus Confirmed Active Social History Social History Type Response Smoking Status Never entered on: 05/15/18 Sex Patient Care team information Care Team Personnel Name: Gladis Carrizales RN Position: [facility] RN Member Role: Primary Care Nurse Name: Ebony Santoyo RN Position: [facility] RN Member Role: Primary Care Nurse Name: Siobhan Ko RN Position: [facility] RN Member Role: Primary Care Nurse Name: Evette Marrero Position: [facility] RN Supv Member Role: Primary Care Nurse Name: Aviva Howard RN Position: [facility] RN Member Role: Primary Care Nurse Name: Hilda Doyle RN Position: [facility] RN Supv Member Role: Primary Care Nurse Name: Kimmy Ahumada NP Position: [facility] Associate Professional Member Role: Primary Care Nurse Address: Address: [address] [place] [address] Name: Bruce Mccurdy MD Position: [facility] Renal MD Member Role: Lifetime Consulting Physician Address: Address: [address] [place] [address], [address] [facility] [place], [place] [address] Name: Malika Richards RN Position: [facility] Organizational Development Director Member Role: Primary Care Nurse Name: JO GONZALEZ RN Position: [facility] RN Member Role: Primary Care Nurse Name: Shelby Luna RN Position: [facility] RN Member Role: Primary Care Nurse Name: Sarina Camejo RN Position: [facility] RN Member Role: Primary Care Nurse Name: Lachelle Shine RN Position: [facility] RN Member Role: Primary Care Nurse Name: Leilani Lerma RN Position: [facility] HBO Wound Member Role: Primary Care Nurse Name: Sandrita Portillo LPN Position: [facility] RN Member Role: Primary Care Nurse Name: Corina Munoz RN Position: [facility] RN Member Role: Primary Care Nurse Name: Vania Hernandez Position: [facility] RN Member Role: Primary Care Nurse Name: Mukul Dougherty RN Position: [facility] RN Member Role: Primary Care Nurse Name: Hammad Gambino RN Position: [facility] RN Member Role: Primary Care Nurse Name: Kenia Rao RN Position: [facility] RN Member Role: Primary Care Nurse Name: Michele Villavicencio RN Position: [facility] RN Member Role: Primary Care Nurse Name: Brown Parada MD Position: [facility] Primary Care Physician Member Role: PCP Address: Address: [address] [place] [address]- [place] Name: Charlette Lopez RN Position: [facility] RN Member Role: Primary Care Nurse Name: Elena Sheikh RN Position: [facility] RN Member Role: Primary Care Nurse Name: Theodora Serna RN Position: [facility] PCO RN Member Role: Primary Care Nurse Name: Yang Silva RN Position: [facility] RN Member Role: Primary Care Nurse Name: Xiomara Mario RN Position: [facility] RN Member Role: Primary Care Nurse Name: Meg Norman RN Position: [facility] RN Member Role: Primary Care Nurse Name: Latanya Garza RN Position: [facility] RN Member Role: Primary Care Nurse Name: Jaimie Gibson RN Position: [facility] RN Member Role: Primary Care Nurse Name: Carmen Bruner RN Position: [facility] RN Member Role: Primary Care Nurse Name: Kirill Mccartney RN Position: [facility] RN Member Role: Primary Care Nurse Name: Chacha Hassan RN Position: [facility] RN Member Role: Primary Care Nurse Name: Earlene Grayson RN Position: [facility] SN RN Member Role: Primary Care Nurse Name: Cem Carroll MD Position: [facility] Renal MD Member Role: Lifetime Consulting Physician Address: Address: [address] [place] [address] [facility] [place] [address]- [place] Name: Eusebia Hassan RN Position: [facility] RN Member Role: Primary Care Nurse Care Team Related Persons Name: JIMENEZ BRUNER Address: [address] [place] [address] Name: ANYA DE JESUS Address: [address] [place] [address]
--- OUTSIDE RECORDS SUMMARY | 2022-10-04 17:52 | XMS_ITS | Continuity of Care Document ---
Author Name Unknown Organization [facility] Address [address] [place] [address] [address] [place] [address]- Care Team Providers Care Press Assistant And Feeder Name Role Phone Sanaz WILKINS, Matheus Castro Primary Care Physician [place] [facility] [place] [facility] [address] [place] [address]- [facility] Attending Physician: Jong Miller MD Allergies, Adverse Reactions, Alerts Substance Reaction Severity Status clindamycin Hives Active penicillin rash Active aspirin Active Bee Stings Active Contrast Dye urticaria Active Latex anaphylaxis Active antivenin (black spider) Active Immunizations Given and Recorded Vaccine Date Status Refusal Reason influenza virus vaccine, inactivated 1 05/15/18 Gi kyle tetanus/diphtheria/pertussis, acel(Tdap) 05/07/09 Given 1Result Comment: [05/15/2018] 00340-270-67 Medications amLODIPine 5 mg oral tablet 5 [...] 01/29/19 17:13:14 EDT, Route to Pharmacy Electronically, [id number], [facility] Start Date: [...] 0 Refills, Maintenance, 05/23/18 10:06:41 EST, [place], 1 sprays Nares, Both 2 times a [...] 12/28/18 15:10:14 EDT, Route to Pharmacy Electronically, [id number], [facility] #[id number] Start Date: 12/28/18 Status: Ordered lidocaine 5% topical film APPLY ONE PATCH TO THE KNEE AND APPLY ONE PATCH TO THE LOWER BACK DAILY UTD. Start Date: 06/01/18 Status: Ordered lisinopril 40 mg oral tablet See Instructions, # 30 tablet, Refills 5 Tot. Refills 5, TAKE 1 TABLET BY MOUTH EVERY MORNING, [facility] #[id number] Start Date: 01/02/19 Status: Ordered LORazepam 2 [...] 12/28/18 15:03:05 EDT, Route to Pharmacy Electronically, [id number], [facility] #[id number] Start Date: 12/28/18 Status: Ordered traZODone 50 [...] oldest [Reference Range]: 1 Height 191 cm (06/11/19 2:35 PM) Pulse Rate [55-90 bpm] 83 bpm (06/11/19 2:35 PM) Blood Pressure [90-138/55-84 mm Hg] 126/ 79mm Hg (06/11/19 2:35 PM) Temperature [96.8-100.4 DegF] 98.1 DegF (06/11/19 2:35 PM) Blood pressure sites Arm, left (06/11/19 2:35 PM) Temperature Route Temporal (06/11/19 2:35 PM) Social History Social History Type Response Smoking Status Never entered on: 05/15/18 Sex
--- OUTSIDE RECORDS SUMMARY | 2022-10-04 17:52 | XMS_ITS | Continuity of Care Document ---
Author Name Unknown Organization [facility] Address [address] [place] [address]- Care Team Providers Care Focusing Machine Operator Name Role Phone Matheus Yo MD Primary Care Physician [place] [facility] [place] 08/16/19 - 08/26/19 [facility] [address] [place] [address]- [facility] Attending Physician: Raji Shoemaker Admitting Physician: AdmRaji lara Referring Physician: Admtr, Ar8 Allergies, Adverse Reactions, [...] kyle tetanus/diphtheria/pertussis, acel(Tdap) 05/07/09 Given 1Result Comment: [id number] 2Result Comment: [id number] 3Result Comment: [05/15/2018] [id number] Medications atorvastatin 20 mg oral tablet 1 tablet = 20 mg, By Mouth, Daily, # 90 tablet, 3 Refills, Soft Stop, 03/14/19 13:58:57 EDT Start Date: 03/14/19 Status: Ordered clopidogrel 75 mg oral tablet 75 mg, 1, tablet, By Mouth, Daily, # 30 tablet, Refills 5, Tot. Refills 5, Maintenance, 01/29/19 17:13:14 EDT, Route to Pharmacy Electronically, [id number], [facility] Start Date: [...] Gm, 0 Refills, Maintenance, 05/23/18 10:06:41 EST, [place], 1 sprays Nares, Both 2 times a [...] Maintenance, 07/18/2014:03:00 EST, Route to Pharmacy Electronically, [facility] #[id number], 191, cm, 07/18/19 14:17:00 EST, Height, 193.5, [...] 08/06/19 14:53:00 EST, Route to Pharmacy Electronically, [facility], 191, cm, 07/23/19 14:30:00 EST, [...] TAKE 1 TABLET BY MOUTH EVERY MORNING, [id number] Start Date: 01/02/19 Status: Ordered LORazepam 2 mg oral tablet 1 tablet = 2 mg, By Mouth, 3 times a day, PRN for anxiety, # 90 tablet, 2 Refills, Maintenance, 07/18/19 15:00:00 EST, Tablet, [facility], 191, cm, 07/18/19 14:17:00 EST, [...] Dry Weight Start Date: 08/06/19 Status: Ordered OXcarbazepine 600 mg oral tablet [...] EVERY NIGHT AT BEDTIME, # 90 capsule, 3 Refills, Soft Stop, 08/06/19 14:55:00 EST, [facility], 191, cm, 07/23/19 14:30:00 EST, Height, 193.5, kg, 05/21/19 5:38:00 EST, D... Start Date: 08/06/19 Status: Ordered prazosin 5 mg oral capsule 5 mg, 1, capsule, By Mouth, Daily at bedtime, # 30 capsule, Refills 5, Tot. Refills 5, Maintenance,07/19/19 15:02:00 EST, Route to Pharmacy Electronically, [facility], 191, cm, 07/18/19 14:17:00 EST, [...] nausea/vomiting, # 20 tablet, 0 Refills, Maintenance, 08/06/19 13:46:00 EST, Tablet, [facility], 191, cm, 07/23/19 14:30:00 EST, Height, 193.5, kg, 05/21/19 5:38:00 EST, Dry Weight Start Date: 08/06/19 Status: Ordered QUEtiapine 25 mg oral tablet 50 mg, 2, tablet, By Mouth, Daily at bedtime, # 30 tablet, Refills 0, Maintenance, 05/21/19 0:45:52EST Start Date: 05/21/19 Status: Ordered QUEtiapine 50 mg oral tablet 1 tablet = 50 mg, By Mouth, Daily, # 30 tablet, 5 Refills, Maintenance, 07/18/19 15:00:00 EST, Tablet, [facility], 191, cm, 07/18/19 14:17:00 EST, Height, 193.5, kg, 05/21/19 5:38:00EST, Dry Weight Start Date: 07/18/19 Status: Ordered spironolactone 25 mg oral tablet 25 mg, 1, tablet, By Mouth, Daily, # 90 tablet, Refills 3, Tot. Refills 3, Maintenance, 12/28/18 15:03:05 EDT, Route to Pharmacy Electronically, [id number], [facility] #[id number] Start Date: 12/28/18 Status: Ordered traZODone 50 [...]
--- OUTSIDE RECORDS SUMMARY | 2022-10-04 17:52 | XMS_ITS | Continuity of Care Document ---
Author Name Unknown Organization [facility] Address [address] [place] [address]- Care Team Providers Care Ergonomics Technician Name Role Phone Sanaz WILKINS, Matheus Castro Primary Care Physician [phone] [place] [facility] [place]s): 01/23/21 - 02/22/21 [facility] Adult [address] [place] [address]- Allergies, Adverse Reactions, Alerts Substance Reaction Severity [...] kyle tetanus/diphtheria/pertussis, acel(Tdap) 05/07/09 Given 1Result Comment: [id number] 2Result Comment: [id number] 3Result Comment: [05/15/2018] [id number] Medications acetaminophen 325 mg oral tablet 650 mg, By Mouth, Every 4 hours, PRN, Refills 0, Maintenance, Pain , Mild, 12/12/19 13:05:00 EDT Start Date: 12/12/19 Status: Ordered apixaban 5 mg oral tablet 1 tablet = 5 mg, By Mouth, 2 times a day, # 60 tablet, 3 Refills, Maintenance, 01/13/21 15:09:00 EDT, Tablet, [facility], Partial fill upon patient [...] Refills, Maintenance, 01/13/21 15:09:00 EDT, CR Capsule, [facility], Partial fill upon patient request if the prescription is for a schedule II opioid drug., 190, cm, 01/13/21 7:49:00... Start Date: 01/13/21 Stop Date: 03/14/21 Status: Ordered colchicine 0.6 mg oral tablet 0.6 mg, 1, tablet, By Mouth, 2 times a day, # 60 tablet, Refills 1, Tot. Refills 1, Maintenance, 01/13/21 15:09:00 EDT, Route to Pharmacy Electronically, [facility], Partial fill upon patient request [...] 01/13/21 15:09:00 EDT, Route to Pharmacy Electronically, [facility], Partial fill upon patient request [...] 01/18/21 11:37:00 EDT, Route to Pharmacy Electronically, [facility], Partial fill upon patient request if the prescription is for a errol... Start Date: 01/18/21 Status: Ordered Flonase 50 mcg/inh nasal spray 1 sprays, Nares, Both, 2 times a day, # 16 Gm, 11 Refills, Maintenance, 07/08/20 16:47:00 EST, [place], [facility], 1 sprays [...] Refills 0, Tot. Refills 0, Maintenance, dx: [id number]. 40, oxygen dependence Z99.81, 01/27/21 11:50:00 EDT, [...] 01/18/21 11:37:00 EDT, Route to Pharmacy Electronically, [facility], Partial fill upon patient request [...] 1 Refills, Soft Stop, 01/13/21 15:30:00 EDT, [facility], 190, cm, 01/13/21 7:49:00 [...] EST, Route to Pharmacy Electronically, [facility], 191, cm, 07/18/19 14:17:00 EST, [...] Refills, Maintenance, 01/23/21 11:11:00 EDT, [facility], 190, cm, 01/23/21 8:35:00 EDT, Height, 153, kg, 01/14/21 23:22:00 EDT, Dry Weight Start Date: 01/23/21 Status: Ordered torsemide 20 mg oral tablet 2 tablet = 40 mg, By Mouth, Daily, # 60 tablet, 1 Refills, Maintenance, 01/13/21 15:10:00 EDT, Tablet, [facility], Partial fill upon patient request if the prescription is for a schedule II opioid drug., 190, cm, 01/13/21 7:49:00 EDT, He... Start Date: 01/13/21 Stop Date: 03/14/21 Status: Ordered traZODone 50 mg oral tablet 100 mg, 2, tablet, By Mouth, Daily at bedtime, # 60 tablet, Refills 5, Tot. Refills 5, Maintenance,01/23/21 11:11:00 EDT, Route to Pharmacy Electronically, [facility], 190, cm, 01/23/21 8:35:00 EDT, Height, 153, kg, 01/14/21 23:22:00 EDT... 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
--- OUTSIDE RECORDS SUMMARY | 2022-10-04 17:52 | XMS_ITS | Continuity of Care Document ---
Author Name Unknown Organization [facility] lt Address [address] [place] [address]- Care Team Providers Care Preservative Filler Machine Operator Name Role Phone Tal WILKINS, Brown Paz Primary Care Physician [place] [facility] [place] 03[place]14/22 [facility] [address] [place] [address]- Attending Physician: Admtr, Ar8 Admitting Physician: Admtr, Ar8 Referring Physician: Admtr, Ar8 Allergies, Adverse Reactions, [...] Reason: Med Not Available 2Result Comment: [05/15/2018] [id number] 3Result Comment: [id number] 4Result Comment: [id number] Medications apixaban 5 mg oral tablet 1 [...] Gm, 11 Refills, Maintenance, 07/08/20 16:47:00 EST, [place], [facility], 1 sprays [...] 0 Refills, Maintenance, 07/21/21 11:47:00 EST, Solution, [facility], Partial fill upon patient [...] COMMUNICATE SUGARS WITH PCP TO TITRATE LANTUS. [phone], 08/28... 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
--- OUTSIDE RECORDS SUMMARY | 2022-10-04 17:52 | XMS_ITS | Continuity of Care Document ---
Author Name Unknown Organization [facility] Address [address] [place] [address]- Care Team Providers Care Career Agent Name Role Phone Sanaz WILKINS, Matheus Castro Primary Care Physician [phone] Encounter [facility] Date(s): 02/01/20 - 03/02/20 [facility] Adult [address] [place] [address]- [facility] Allergies, Adverse Reactions, Alerts Substance Reaction [...] kyle tetanus/diphtheria/pertussis, acel(Tdap) 05/07/09 Given 1Result Comment: [id number] 2Result Comment: [id number] 3Result Comment: [05/15/2018] 70134-172-26 Medications acetaminophen 325 mg oral tablet 650 [...] 10/25/19 8:57:00 EDT, Route to Pharmacy Electronically, [facility], 191, cm, 07/23/19 14:30:00EST, Height, 193.5, kg, 05/21/19 5:38:00 EST, Dry Weight Start Date: 10/25/19 Stop Date: 04/22/20 Status: Ordered cyanocobalamin 1000 mcg oral tablet, extended release 1 tablet = 1,000 mcg, By Mouth, Daily, # 30 tablet, 11 Refills, Maintenance, 02/21/20 10:38:00 EDT,[facility], 191, cm, 12/27/19 12:20:00 EDT, [...] EDT, Route to Pharmacy Electronically, [facility], 191, cm, 07/23/2013:30:00 EST, Height, 193.5, kg, 05/21/19 5:38:00 EST,... Start Date: 12/12/19 Status: Ordered Flonase 50 mcg/inh nasal spray 1 sprays, Nares, Both, 2 times a day, # 16 Gm, 0 Refills, Maintenance, 05/23/18 10:06:41 EST, [place], 1 sprays Nares, Both 2 times a day Start Date: 05/23/18 Status: Ordered gabapentin 300 mg oral capsule 300 mg, 1, capsule, By Mouth, Daily, APPOINTMENT 02/26/20, # 10 capsule, Refills 0, Tot. Refills 0, Maintenance, 02/22/20 13:44:00 EDT, Route to Pharmacy Electronically, [facility], 191, cm, 12/27/19 12:20:00 EDT, [...] EDT, Route to Pharmacy Electronically, [facility], 191, cm, 12/27/19 12:20:00 EDT, [...] Start Date: 08/06/19 Status: Ordered nystatin topical 001880 u/gm powder See Instructions, Topically 2 times [...] Maintenance,07/19/19 15:02:00 EST, Route to Pharmacy Electronically, [facility], 191, cm, 07/18/19 14:17:00 EST, Height, 193.5, kg, 05/21/19 5:38:00 E... Start Date: 07/19/19 Status: Ordered QUEtiapine 50 mg oral tablet 1 tablet = 50 mg, By Mouth, Daily, # 30 tablet, 5 Refills, Maintenance, 12/12/19 10:07:00 EDT, Tablet, [facility], 191, cm, 07/23/19 14:30:00 EST, Height, 193.5, kg, 05/21/19 5:38:00EST, Dry Weight Start Date: 12/12/19 Status: Ordered spironolactone 25 mg oral tablet 25 mg, 1, tablet, By Mouth, Daily, # 30 tablet, Refills 5, Tot. Refills 5, Maintenance, 02/19/20 9:52:00 EDT, Route to Pharmacy Electronically, [facility], 191, cm, 12/27/19 12:20:00EDT, Height, 193.5, kg, 05/21/19 5:38:00 EST, Dry Weight Start Date: 02/19/20 Status: Ordered traZODone 50 mg oral tablet 100 mg, 2, tablet, By Mouth, Daily at bedtime, # 60 tablet, Refills 5, Tot. Refills 5, Maintenance,02/01/20 10:29:00 EDT, Route to Pharmacy Electronically, [facility], 191, cm, 12/27/19 12:20:00 EDT, Height, 193.5, kg, 05/21/19 5:38:00 E... Start Date: 02/01/20 Status: Ordered Vitamin D3 2000 intl units oral tablet 1 tablet = 2,000 International_Units, By Mouth, Daily, # 90 tablet, 1 Refills, Maintenance, 02/20/20 14:34:00 EDT, [facility], 191, cm, [...]
--- OUTSIDE RECORDS SUMMARY | 2022-10-04 17:52 | XMS_ITS | Continuity of Care Document ---
Author Name Unknown Organization [facility] lt Address [address] [place] [address]- Care Team Providers Care Chief Relay Tester Name Role Phone Brown Parada MD Primary Care Physician [place] [facility] [place] 12[place]10/21 [facility] [address] [place] [address]- Attending Physician: Brown Parada MD Allergies, Adverse [...] Reason: Med Not Available 2Result Comment: [05/15/2018] 94179-513-00 3Result Comment: [id number] 4Result Comment: [id number] Medications acetaminophen 325 mg oral tablet 650 [...] Dry Weight Start Date: 02/23/21 Status: Ordered DeltStoryBlender Cozmo Glucometer See Instructions, # 1 each, [...] Gm, 11 Refills, Maintenance, 07/08/20 16:47:00 EST, [place], [facility], 1 sprays [...] Replace Required Details, Route to Pharmacy Electronically, [facility], 190, cm, 07/27/21 12:49... Start Date: 07/30/21 Status: Ordered hydrOXYzine hydrochloride 25 mg oral tablet 1 tablet, By Mouth, 3 times a day, BUBBLE PACK, # 84 tablet, 5 Refills, Maintenance, 07/30/21 9:02:00 EST, [facility], 190, cm, 07/27/21 12:49:00 EST, [...] 0 Refills, Maintenance, 07/21/21 11:47:00 EST, Solution, [facility], Partial fill upon [...] Soft Stop, 09/24/21 18:09:00 EDT, [facility], Partial fill upon patient [...] COMMUNICATE SUGARS WITH PCP TO TITRATE LANTUS. [phone], 08/28... Start Date: 08/28/21 Status: Ordered One [...] EDT, Route to Pharmacy Electronically, [facility], Partial fill upon... Start Date: [...] 168 capsule, 5 Refills, 09/15/21 5:56:00 EDT, [facility], 191, cm, 08/28/21 11:32:00 EDT, Height, 168.5, kg, 08/18/21 22:23:00 EDT... Start Date: 09/15/21 Status: Ordered prazosin 5 mg oral capsule 5 mg, 1, capsule, By Mouth, Daily at bedtime, BUBBLE PACK, # 28 capsule, Refills 4, Tot. Refills 4,Maintenance, 04/02/21 8:22:00 EDT, Route to Pharmacy Electronically, [facility], 190, cm, 01/23/21 8:35:00 EDT, Height, 153, kg, 01/14/21... 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
--- OUTSIDE RECORDS SUMMARY | 2022-10-04 17:52 | XMS_ITS | Continuity of Care Document ---
Author Name Unknown Organization [facility] Address [address] [place] [address]- Care Team Providers Care Junior Net Developer Name Role Phone Matheus Yo MD Primary Care Physician [id number] Date(s): 06/12/19 - 07/27/[address] [address] [phone] Attending Physician: Jong Miller MD Admitting Physician: Jong Miller MD Referring Physician: Jong Miller MD Allergies, Adverse Reactions, [...] kyle tetanus/diphtheria/pertussis, acel(Tdap) 05/07/09 Given 1Result Comment: [id number] 2Result Comment: [id number] 3Result Comment: [05/15/2018] 75127-616-93 Medications atorvastatin 20 mg oral tablet 1 tablet = 20 mg, By Mouth, Daily, # 90 tablet, 3 Refills, Soft Stop, 03/14/19 13:58:57 EDT Start Date: 03/14/19 Status: Ordered clopidogrel 75 mg oral tablet 75 mg, 1, tablet, By Mouth, Daily, # 30 tablet, Refills 5, Tot. Refills 5, Maintenance, 01/29/19 17:13:14 EDT, Route to Pharmacy Electronically, [id number], [facility] Start Date: [...] Gm, 0 Refills, Maintenance, 05/23/18 10:06:41 EST, [place], 1 sprays Nares, Both 2 times a [...] Maintenance, 07/18/2014:03:00 EST, Route to Pharmacy Electronically, [facility] #[id number], 191, cm, 07/18/19 14:17:00 EST, Height, 193.5, [...] 12/28/18 15:10:14 EDT, Route to Pharmacy Electronically, [id number], [id number] Start Date: 12/28/18 Status: Ordered lidocaine 5% topical film APPLY ONE PATCH TO THE KNEE AND APPLY ONE PATCH TO THE LOWER BACK DAILY UTD. Start Date: 06/01/18 Status: Ordered lisinopril 40 mg oral tablet See Instructions, # 30 tablet, Refills 5 Tot. Refills 5, TAKE 1 TABLET BY MOUTH EVERY MORNING, [facility] #[id number] Start Date: 01/02/19 Status: Ordered LORazepam 2 [...] Maintenance, 07/18/19 15:00:00 EST, Tablet, [facility], 191, cm, 07/18/19 14:17:00 EST, Height, 193.5, kg, 05/21/19 5:38:00EST, Dry Weight Start Date: 07/18/19 Status: Ordered spironolactone 25 mg oral tablet 25 mg, 1, tablet, By Mouth, Daily, # 90 tablet, Refills 3, Tot. Refills 3, Maintenance, 12/28/18 15:03:05 EDT, Route to Pharmacy Electronically, [id number], [facility][id number] Start Date: 12/28/18 Status: Ordered traZODone 50 mg oral tablet 1-2 tablets, By Mouth, Daily at bedtime, PRN, Insomnia Start Date: 06/01/18 Status: Ordered traZODone 50 mg oral tablet 100 mg, 2, tablet, By Mouth, Daily at bedtime, # 60 tablet, Refills 5, Tot. Refills 5, Maintenance,07/24/19 11:40:00 EST, Route to Pharmacy Electronically, [facility], 191, cm, 07/23/19 14:30:00 EST, [...]
--- OUTSIDE RECORDS SUMMARY | 2022-10-04 17:52 | XMS_ITS | Continuity of Care Document ---
Author Name Unknown Organization [facility] Address [address] [place] [address]- Care Team Providers Care Parquetry Layer Name Role Phone Sanaz WILKINS, Matheus Castro Primary Care Physician Encounter [facility] Date(s): 06/09/21 - 07/09/21 [facility] Adult [address] [place] [address]- Allergies, Adverse Reactions, Alerts Substance Reaction Severity [...] kyle tetanus/diphtheria/pertussis, acel(Tdap) 05/07/09 Given 1Result Comment: [id number] 2Result Comment: [id number] 3Result Comment: [05/15/2018] 95777-621-17 Medications acetaminophen 325 mg oral tablet 650 [...] 01/13/21 15:09:00 EDT, Route to Pharmacy Electronically, [facility], Partial fill upon patient [...] 01/13/21 15:09:00 EDT, Route to Pharmacy Electronically, [facility], Partial fill [...] 01/18/21 11:37:00 EDT, Route to Pharmacy Electronically, [facility], Partial fill upon patient request if the prescription is for a errol... Start Date: 01/18/21 Status: Ordered Flonase 50 mcg/inh nasal spray 1 sprays, Nares, Both, 2 times a day, # 16 Gm, 11 Refills, Maintenance, 07/08/20 16:47:00 EST, [place], [facility], 1 sprays [...] Refills 0, Tot. Refills 0, Maintenance, dx: [id number]. 40, oxygen dependence Z99.81, 01/27/21 11:50:00 EDT, [...] 01/18/21 11:37:00 EDT, Route to Pharmacy Electronically, [facility], Partial fill upon patient [...] 04/02/21 8:22:00 EDT, Route to Pharmacy Electronically, [facility], 190, cm, 01/23/21 8:35:00 EDT, Height, 153, kg, 01/14/21... 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
--- OUTSIDE RECORDS SUMMARY | 2022-10-04 17:52 | XMS_ITS | Continuity of Care Document ---
Author Name Unknown Organization [facility] Aung Address [address] [place] [address]- Care Team Providers Care Insurance Application Investigator Name Role Phone Sanaz WILKINS, Matheus Castro Primary Care Physician [facility] Date[facility]): 07/[facility]/20 - 08/21/20 [facility] Adult [address] [place] [address]- Allergies, Adverse Reactions, Alerts Substance Reaction Severity [...] kyle tetanus/diphtheria/pertussis, acel(Tdap) 05/07/09 Given 1Result Comment: [id number] 2Result Comment: [id number] 3Result Comment: [05/15/2018] 71273-783-27 Medications acetaminophen 325 mg oral tablet 650 mg, By Mouth, Every 4 hours, PRN, Refills 0, Maintenance, Pain , Mild, 12/12/19 13:05:00 EDT Start Date: 12/12/19 Status: Ordered albuterol CFC free 90 mcg/inh inhalation aerosol 2, puffs, Inhalation, Every 4 hours, PRN, # 18 Gm, Refills 5, Tot. Refills 5, Maintenance, 06/24/2115:37:00 EST, Aerosol, Route to Pharmacy Electronically, [id number], [facility], 191, cm, 06/24/20 [...] EDT, Route to Pharmacy Electronically, [facility], 191, cm, 07/23/2013:30:00 EST, Height, 193.5, kg, 05/21/19 5:38:00 EST,... Start Date: 12/12/19 Status: Ordered Flonase 50 mcg/inh nasal spray 1 sprays, Nares, Both, 2 times a day, # 16 Gm, 11 Refills, Maintenance, 07/08/20 16:47:00 EST, [place], [facility], 1 sprays Nares, Both 2 times a day, 191, cm, 06/24/20 13:40:00 EST, Height, 193.5, kg, 05/21/19 5:38:00 EST, Dry Weight Start Date: 07/08/20 Status: Ordered gabapentin 300 mg oral capsule 300 mg, 1, capsule, By Mouth, 4 times a day, # 120 capsule, Refills 11, Tot. Refills 11, Maintenance, 07/24/20 17:44:00 EST, Route to Pharmacy Electronically, [facility], 191, cm, 06/24/20 13:40:00 EST, [...] EDT, Route to Pharmacy Electronically, [facility], 191, cm, 12/27/2011:20:00 EDT, Height, 193.5, kg, 05/21/19 5:38:00 EST,... Start Date: 03/31/20 Status: Ordered lisinopril 40 mg oral tablet 1 tablet = 40 mg, By Mouth, Daily, APPOINTMENT 02/26/20, # 10 tablet, 0 Refills, Maintenance, 02/22/20 13:44:00 EDT, Tablet, [facility], 191, cm, 12/27/19 12:20:00 EDT, [...] Start Date: 05/07/20 Status: Ordered nystatin topical 808697 u/gm powder See Instructions, Topically 2 times [...] EST, Route to Pharmacy Electronically, [facility], 191, cm, 12/27/19 12:20:00 EDT, Height, 193.5, kg, 05/21/19 5:38:00 E... Start Date: 06/23/20 Status: Ordered Vitamin D3 2000 intl units oral tablet 1 tablet = 2,000 International_Units, By Mouth, Daily, # 90 tablet, 1 Refills, Maintenance, 02/20/20 14:34:00 EDT, [facility], 191, cm, 12/27/19 12:20:00 EDT, [...]
--- OUTSIDE RECORDS SUMMARY | 2022-10-04 17:52 | XMS_ITS | Continuity of Care Document ---
Author Name Unknown Organization [facility] Aung lt Address [address] [place] [address]- Care Team Providers Care Ophthalmic Medical Assistant Name Role Phone Tal WILKINS, Brown Paz Primary Care Physician [phone] [facility]s): 09/07/21 - 10/07/21 [facility] Adult [address] [place] [address]- Allergies, Adverse Reactions, Alerts Substance Reaction Severity [...] Reason: Med Not Available 2Result Comment: [05/15/2018] 35168-018-46 3Result Comment: [id number] 4Result Comment: [id number] Medications acetaminophen 325 mg oral tablet 650 [...] Gm, 11 Refills, Maintenance, 07/08/20 16:47:00 EST, [place], [facility], 1 sprays [...] Replace Required Details, Route to Pharmacy Electronically, [facility], 190, cm, 07/27/21 12:49... Start Date: 07/30/21 Status: Ordered hydrOXYzine hydrochloride 25 mg oral tablet 1 tablet, By Mouth, 3 times a day, BUBBLE PACK, # 84 tablet, 5 Refills, Maintenance, 07/30/21 9:02:00 EST, [facility], 190, cm, 07/27/21 12:49:00 EST, [...] 0 Refills, Maintenance, 07/21/21 11:47:00 EST, Solution, [facility], Partial fill upon [...] COMMUNICATE SUGARS WITH PCP TO TITRATE LANTUS. [phone], 08/28... Start Date: 08/28/21 Status: Ordered One [...] tablet, Refills 0, Tot. Refills 0, Acute 10/26/21 10:52:00 EDT, Pain , Severe, 10/15/21 5:55:00 EDT, Route to Pharmacy Electronically, [facility], Partial fill upon patient request if th... Start Date: 10/15/21 Stop Date: 10/26/21 Status: Ordered oxyCODONE 5 mg oral tablet [...] 09/08/21 17:43:00 EDT, Route to Pharmacy Electronically, [facility], Partial fill upon patient request [...] 5 Refills, 09/15/21 5:56:00 EDT, [facility], 191, cm, 08/28/21 11:32:00 EDT, Height, 168.5, kg, 08/18/21 22:23:00 EDT... Start Date: 09/15/21 Status: Ordered prazosin 5 mg oral capsule 5 mg, 1, capsule, By Mouth, Daily at bedtime, BUBBLE PACK, # 28 capsule, Refills 4, Tot. 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
--- OUTSIDE RECORDS SUMMARY | 2022-10-04 17:52 | XMS_ITS | Continuity of Care Document ---
Author Name Unknown Organization [facility] Aung lt Address [address] [place] [address]- Care Team Providers Care Toy Painter Name Role Phone Matheus Yo MD Primary Care Physician [facility]s): 12/13/19 - 01/12/20 [facility] Adult [address] [place] [address]- [facility] Allergies, Adverse Reactions, Alerts Substance Reaction Severity [...] kyle tetanus/diphtheria/pertussis, acel(Tdap) 05/07/09 Given 1Result Comment: [id number] 2Result Comment: [id number] 3Result Comment: [05/15/2018] [id number] Medications acetaminophen 325 mg oral tablet 650 [...] EDT, Route to Pharmacy Electronically, [facility], 191, cm, 07/23/19 14:30:00EST, Height, [...] EDT, Route to Pharmacy Electronically, [facility], 191, cm, 07/23/2013:30:00 EST, Height, 193.5, kg, 05/21/19 5:38:00 EST,... Start Date: 12/12/19 Status: Ordered Flonase 50 mcg/inh nasal spray 1 sprays, Nares, Both, 2 times a day, # 16 Gm, 0 Refills, Maintenance, 05/23/18 10:06:41 EST, [place], 1 sprays Nares, Both 2 times a [...] 08/06/19 14:53:00 EST, Route to Pharmacy Electronically, [facility], 191, cm, 07/23/19 14:30:00 EST, [...] Start Date: 08/06/19 Status: Ordered nystatin topical 356799 u/gm powder See Instructions, Topically 2 times [...] Refills, Maintenance, 10/19/19 10:01:00 EDT, [facility], changed to 100mg due to being out of 200, 191, cm, 07/23/19 14:30:00 EST, Height, 193.5, kg, 1... Start Date: 10/19/19 Status: Ordered prazosin 5 mg oral capsule 5 mg, 1, capsule, By Mouth, Daily at bedtime, # 30 capsule, Refills 5, Tot. Refills 5, Maintenance,07/19/19 15:02:00 EST, Route to Pharmacy Electronically, [facility], 191, cm, 07/18/19 14:17:00 EST, Height, 193.5, kg, 05/21/19 5:38:00 E... Start Date: 07/19/19 Status: Ordered QUEtiapine 50 mg oral tablet 1 tablet = 50 mg, By Mouth, Daily, # 30 tablet, 5 Refills, Maintenance, 12/12/19 10:07:00 EDT, Tablet, [facility], 191, cm, 07/23/19 14:30:00 EST, Height, 193.5, kg, 05/21/19 5:38:00EST, Dry Weight Start Date: 12/12/19 Status: Ordered spironolactone 25 mg oral tablet 25 mg, 1, tablet, By Mouth, Daily, # 90 tablet, Refills 3, Tot. 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
--- OUTSIDE RECORDS SUMMARY | 2022-10-04 17:52 | XMS_ITS | Continuity of Care Document ---
Author Name Unknown Organization [facility] A[facility] Address [address] [place] [address]- Care Team Providers Care Dough Puncher Name Role Phone Sanaz WILKINS, Matheus Castro Primary Care Physician [phone] [facility]s): 02/20/20 - 03/21/20 [facility] Adult [address] [place] [address]- [facility] Allergies, Adverse [...] kyle tetanus/diphtheria/pertussis, acel(Tdap) 05/07/09 Given 1Result Comment: [id number] 2Result Comment: [id number] 3Result Comment: [05/15/2018] [id number] Medications acetaminophen 325 mg oral tablet 650 [...] 10/25/19 8:57:00 EDT, Route to Pharmacy Electronically, [facility], 191, cm, 07/23/19 14:30:00EST, Height, 193.5, kg, 05/21/19 5:38:00 EST, Dry Weight Start Date: 10/25/19 Stop Date: 04/22/20 Status: Ordered cyanocobalamin 1000 mcg oral tablet, extended release 1 tablet = 1,000 mcg, By Mouth, Daily, # 30 tablet, 11 Refills, Maintenance, 02/21/20 10:38:00 EDT,[facility], 191, cm, 12/27/19 12:20:00 EDT, [...] EDT, Route to Pharmacy Electronically, [facility], 191, cm, 07/23/2013:30:00 EST, Height, 193.5, kg, 05/21/19 5:38:00 EST,... Start Date: 12/12/19 Status: Ordered Flonase 50 mcg/inh nasal spray 1 sprays, Nares, Both, 2 times a day, # 16 Gm, 0 Refills, Maintenance, 05/23/18 10:06:41 EST, [place], 1 sprays Nares, Both 2 times a day Start Date: 05/23/18 Status: Ordered gabapentin 300 mg oral capsule 300 mg, 1, capsule, By Mouth, Daily, APPOINTMENT 02/26/20, # 10 capsule, Refills 0, Tot. Refills 0, Maintenance, 02/22/20 13:44:00 EDT, Route to Pharmacy Electronically, [facility], 191, cm, 12/27/19 12:20:00 EDT, [...] EDT, Route to Pharmacy Electronically, [facility], 191, cm, 12/27/19 12:20:00 EDT, [...] Start Date: 08/06/19 Status: Ordered nystatin topical 210045 u/gm powder See Instructions, Topically 2 times [...] Maintenance,07/19/19 15:02:00 EST, Route to Pharmacy Electronically, [facility], 191, cm, 07/18/19 14:17:00 EST, Height, 193.5, kg, 05/21/19 5:38:00 E... Start Date: 07/19/19 Status: Ordered QUEtiapine 50 mg oral tablet 1 tablet = 50 mg, By Mouth, Daily, # 30 tablet, 5 Refills, Maintenance, 12/12/19 10:07:00 EDT, Tablet, [facility], 191, cm, 07/23/19 14:30:00 EST, Height, 193.5, kg, 05/21/19 5:38:00EST, Dry Weight Start Date: 12/12/19 Status: Ordered spironolactone 25 mg oral tablet 25 mg, 1, tablet, By Mouth, Daily, # 30 tablet, Refills 5, Tot. Refills 5, Maintenance, 02/19/20 9:52:00 EDT, Route to Pharmacy Electronically, [facility], 191, cm, 12/27/19 12:20:00EDT, Height, 193.5, kg, 05/21/19 5:38:00 EST, Dry Weight Start Date: 02/19/20 Status: Ordered traZODone 50 mg oral tablet 100 mg, 2, tablet, By Mouth, Daily at bedtime, # 60 tablet, Refills 5, Tot. Refills 5, Maintenance,02/01/20 10:29:00 EDT, Route to Pharmacy Electronically, [facility], 191, cm, 12/27/19 12:20:00 EDT, Height, 193.5, kg, 05/21/19 5:38:00 E... Start Date: 02/01/20 Status: Ordered Vitamin D3 2000 intl units oral tablet 1 tablet = 2,000 International_Units, By Mouth, Daily, # 90 tablet, 1 Refills, Maintenance, 02/20/20 14:34:00 EDT, [facility], 191, cm, 12/27/19 12:20:00 EDT, [...] Painful peripheral neuropath y - NOS(Confirmed) Active penitentiary prescription benzo 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
--- OUTSIDE RECORDS SUMMARY | 2022-10-04 17:52 | XMS_ITS | Continuity of Care Document ---
Author Name Unknown Organization [facility] Aung Address [address] [place] [address]- Care Team Providers Care Shrub Grower Name Role Phone Sanaz WILKINS, Matheus Castro Primary Care Physician Encounter [facility] Date(s): 07/14/20 - 08/13/20 [facility] Adult [address] [place] [address]- Allergies, Adverse Reactions, Alerts Substance Reaction Severity [...] kyle tetanus/diphtheria/pertussis, acel(Tdap) 05/07/09 Given 1Result Comment: [id number] 2Result Comment: [id number] 3Result Comment: [05/15/2018] 44132-747-62 Medications acetaminophen 325 mg oral tablet 650 mg, By Mouth, Every 4 hours, PRN, Refills 0, Maintenance, Pain , Mild, 12/12/19 13:05:00 EDT Start Date: 12/12/19 Status: Ordered albuterol CFC free 90 mcg/inh inhalation aerosol 2, puffs, Inhalation, Every 4 hours, PRN, # 18 Gm, Refills 5, Tot. Refills 5, Maintenance, 06/24/2115:37:00 EST, Aerosol, Route to Pharmacy Electronically, [id number], [facility], 191, [place]ovani, 06/24/20 [...] 05/07/20 10:14:00 EST, Route to Pharmacy Electronically, [facility], 191, cm, 12/27/19 [...] EDT, Route to Pharmacy Electronically, [facility], 191, cm, 07/23/2013:30:00 EST, Height, 193.5, kg, 05/21/19 5:38:00 EST,... Start Date: 12/12/19 Status: Ordered Flonase 50 mcg/inh nasal spray 1 sprays, Nares, Both, 2 times a day, # 16 Gm, 11 Refills, Maintenance, 07/08/20 16:47:00 EST, [place], [facility], 1 sprays Nares, Both 2 times a day, 191, cm, 06/24/20 13:40:00 EST, Height, 193.5, kg, 05/21/19 5:38:00 EST, Dry Weight Start Date: 07/08/20 Status: Ordered gabapentin 300 mg oral capsule 300 mg, 1, capsule, By Mouth, 4 times a day, # 120 capsule, Refills 11, Tot. Refills 11, Maintenance, 07/24/20 17:44:00 EST, Route to Pharmacy Electronically, [facility], 191, cm, 06/24/20 13:40:00 EST, [...] 02/20/20 14:34:00 EDT, Route to Pharmacy Electronically, [facility], 191, cm, 12/27/19 12:20:00 EDT, Height, 193.5, kg, 05/21/19 5:38:00 EST, Dry... Start Date: 02/20/20 Status: Ordered Lasix 40 mg oral tablet 40 mg, 1, tablet, By Mouth, 2 times a day, # 60 tablet, Refills 5, Tot. Refills 5, Maintenance, 03/31/20 17:16:00 EDT, Route to Pharmacy Electronically, [facility], 191, cm, 12/27/2011:20:00 EDT, Height, 193.5, kg, 05/21/19 5:38:00 EST,... Start Date: 03/31/20 Status: Ordered lisinopril 40 mg oral tablet 1 tablet = 40 mg, By Mouth, Daily, APPOINTMENT 02/26/20, # 10 tablet, 0 Refills, Maintenance, 02/22/20 13:44:00 EDT, Tablet, [facility], 191, cm, 12/27/19 12:20:00 EDT, [...] Start Date: 05/07/20 Status: Ordered nystatin topical 014609 u/gm powder See Instructions, Topically 2 times [...] 5 Refills, Maintenance, 04/25/20 14:23:00 EST, Tablet, [facility], 191, cm, 12/27/19 12:20:00 EDT, Height, 193.5, kg, 05/21/19 5:38:00EST, Dry Weight Start Date: 04/25/20 Status: Ordered spironolactone 25 mg oral tablet 25 mg, 1, tablet, By Mouth, Daily, # 30 tablet, Refills 5, Tot. Refills 5, Maintenance, 02/19/20 9:52:00 EDT, Route to Pharmacy Electronically, [facility], 191, cm, 12/27/19 12:20:00EDT, Height, 193.5, kg, 05/21/19 5:38:00 EST, Dry Weight Start Date: 02/19/20 Status: Ordered traZODone 50 mg oral tablet 100 mg, 2, tablet, By Mouth, Daily at bedtime, # 60 tablet, Refills 5, Tot. Refills 5, Maintenance,06/23/20 11:13:00 EST, Route to Pharmacy Electronically, [facility], 191, cm, 12/27/19 12:20:00 EDT, Height, 193.5, kg, 05/21/19 5:38:00 E... Start Date: 06/23/20 Status: Ordered Vitamin D3 2000 intl units oral tablet 1 tablet = 2,000 International_Units, By Mouth, Daily, # 90 tablet, 1 Refills, Maintenance, 02/20/20 14:34:00 EDT, [facility], 191, cm, 12/27/19 12:20:00 EDT, [...]
--- OUTSIDE RECORDS SUMMARY | 2022-10-04 17:52 | XMS_ITS | Continuity of Care Document ---
Author Name Unknown Organization [facility] Aung lt Address [address] [place] [address]- Care Team Providers Care Geography Department Chair Name Role Phone Matheus Yo MD Primary Care Physician [facility] Date[facility]s): 12/26/19 - 01/25/20 [facility] Adult [address] [place] [address]- [facility] Allergies, Adverse Reactions, Alerts Substance [...] kyle tetanus/diphtheria/pertussis, acel(Tdap) 05/07/09 Given 1Result Comment: [id number] 2Result Comment: [id number] 3Result Comment: [05/15/2018] 04039-053-26 Medications acetaminophen 325 mg oral tablet 650 [...] 10/25/19 8:57:00 EDT, Route to Pharmacy Electronically, [facility], 191, cm, 07/23/19 14:30:00EST, Height, 193.5, kg, 05/21/19 5:38:00 EST, Dry Weight Start Date: 10/25/19 Stop Date: 04/22/20 Status: Ordered cyanocobalamin 1000 mcg oral tablet, extended release 1 tablet = 1,000 mcg, By Mouth, Daily, # 30 tablet, 0 Refills, Maintenance, 01/25/20 16:01:00 EDT, [facility], 191, cm, 12/27/19 12:20:00 EDT, Height, 193.5, kg, 05/21/19 5:38:00 EST, Dry Weight Start Date: 01/25/20 Status: Ordered duloxetine 30 mg oral enteric coated capsule 1 capsule = 30 mg, By Mouth, 2 times a day, # 60 capsule, 5 Refills, 07/19/19 15:03:00 EST, [facility], 191, cm, 07/18/19 14:17:00 EST, Height, 193.5, kg, 05/21/19 5:38:00 EST, Dry Weight Start Date: 07/19/19 Status: Ordered famotidine 20 mg oral tablet 20 mg, 1, tablet, By Mouth, 2 times a day, # 60 tablet, Refills 2, Tot. Refills 2, Maintenance, 12/12/19 13:24:00 EDT, Route to Pharmacy Electronically, [facility], 191, cm, 07/23/2013:30:00 EST, Height, 193.5, kg, 05/21/19 5:38:00 EST,... Start Date: 12/12/19 Status: Ordered Flonase 50 mcg/inh nasal spray 1 sprays, Nares, Both, 2 times a day, # 16 Gm, 0 Refills, Maintenance, 05/23/18 10:06:41 EST, [place], 1 sprays Nares, Both 2 times a [...] Pharmacy Electronically, [facility], 409, cm, 07/23/19 14:30:00 EST, Height, 193.5, kg, [...] 08/06/19 14:50:00 EST, [facility] 191, cm, 07/23/19 14:30:00 EST, Height, 193.5, kg, 05/21/19 5:38:00 EST, Dry Weight Start Date: 08/06/19 Status: Ordered nystatin topical 658486 u/gm powder See Instructions, Topically 2 times [...] Maintenance,07/19/19 15:02:00 EST, Route to Pharmacy Electronically, [facility], 191, cm, 07/18/19 [...] 01/25/20 16:01:00 EDT, Route to Pharmacy Electronically, [facility], 191, cm, 12/27/19 12:20:00 EDT, Height, 193.5, kg, 05/21/19 5:38:00 EST, Dry Weight Start Date: 01/25/20 Status: Ordered traZODone 50 mg oral tablet 100 mg, 2, tablet, By Mouth, Daily at bedtime, # 60 tablet, Refills 5, Tot. Refills 5, Maintenance,07/24/19 11:40:00 EST, Route to Pharmacy Electronically, [facility], 191, cm, 07/23/19 14:30:00 EST, Height, 193.5, kg, 05/21/19 5:38:00 E... Start Date: 07/24/19 Status: Ordered Vitamin D3 2000 intl units oral tablet 1 tablet = 2,000 International_Units, By Mouth, Daily, # 90 tablet, 0 Refills, Maintenance, 01/23/20 14:51:00 EDT, [facility], 191, cm, 12/27/19 12:20:00 EDT, [...]
--- OUTSIDE RECORDS SUMMARY | 2022-10-04 17:52 | XMS_ITS | Continuity of Care Document ---
Author Name Unknown Organization [facility] A[facility] Address [address] [place] [address]- Care Team Providers Care Shuttle Fixer Name Role Phone Sanaz WILKINS, Matheus Castro Primary Care Physician [facility] Date[facility]s): 04/27/21 - 05/27/21 [facility] Adult [address] [place] [address]- Allergies, Adverse Reactions, Alerts Substance Reaction Severity [...] kyle tetanus/diphtheria/pertussis, acel(Tdap) 05/07/09 Given 1Result Comment: [id number] 2Result Comment: [id number] 3Result Comment: [05/15/2018] 99888-302-39 Medications acetaminophen 325 mg oral tablet 650 [...] 01/13/21 15:09:00 EDT, Route to Pharmacy Electronically, [facility], Partial fill upon patient request [...] 01/13/21 15:09:00 EDT, Route to Pharmacy Electronically, [facility], Partial fill upon [...] 01/18/21 11:37:00 EDT, Route to Pharmacy Electronically, [facility], Partial fill upon patient request if the prescription is for a errol... Start Date: 01/18/21 Status: Ordered Flonase 50 mcg/inh nasal spray 1 sprays, Nares, Both, 2 times a day, # 16 Gm, 11 Refills, Maintenance, 07/08/20 16:47:00 EST, [place], [facility], 1 sprays [...] Refills 0, Tot. Refills 0, Maintenance, dx: [id number], oxygen dependence Z99.81, 01/27/21 11:50:00 EDT, [...] 01/18/21 11:37:00 EDT, Route to Pharmacy Electronically, [facility], Partial fill upon patient request [...] 04/02/21 8:22:00 EDT, Route to Pharmacy Electronically, [facility], 190, cm, 01/23/21 8:35:00 EDT, Height, 153, kg, 01/14/21... Start Date: 04/02/21 Status: Ordered ProAir HFA 90 mcg/inh inhalation aerosol 2 puffs, Inhalation, Every 4 hours, PRN Wheezing/Shortness of Breath, # 1 each, 5 Refills, Maintenance, 06/27/20 16:56:00 EST, [facility], Partial fill upon patient request [...]
--- OUTSIDE RECORDS SUMMARY | 2022-10-04 17:52 | XMS_ITS | Continuity of Care Document ---
Author Name Unknown Organization [facility] Eddie Aung Address [address] [place] [address]- Care Team Providers Care Tank Wagon Driver Name Role Phone Sanaz WILKINS, Matheus Castro Primary Care Physician [phone] Encounter [facility] Date(s): 02/21/20 - 03/22/20 [facility] Adult [address] [place] [address]- [facility] Allergies, Adverse Reactions, Alerts Substance [...] kyle tetanus/diphtheria/pertussis, acel(Tdap) 05/07/09 Given 1Result Comment: [id number] 2Result Comment: [id number] 3Result Comment: [05/15/2018] 42837-673-06 Medications acetaminophen 325 mg oral tablet 650 [...] 10/25/19 8:57:00 EDT, Route to Pharmacy Electronically, [email or web address], 191, cm, 07/23/19 14:30:00EST, Height, 193.5, kg, 05/21/19 5:38:00 EST, Dry Weight Start Date: 10/25/19 Stop Date: 04/22/20 Status: Ordered cyanocobalamin 1000 mcg oral tablet, extended release 1 tablet = 1,000 mcg, By Mouth, Daily, # 30 tablet, 11 Refills, Maintenance, 02/21/20 10:38:00 EDT,[email or web address], 191, cm, 12/27/19 12:20:00 EDT, [...] EDT, Route to Pharmacy Electronically, [email or web address], 191, cm, 07/23/2013:30:00 EST, Height, 193.5, kg, 05/21/19 5:38:00 EST,... Start Date: 12/12/19 Status: Ordered Flonase 50 mcg/inh nasal spray 1 sprays, Nares, Both, 2 times a day, # 16 Gm, 0 Refills, Maintenance, 05/23/18 10:06:41 EST, [place], 1 sprays Nares, Both 2 times a day Start Date: 05/23/18 Status: Ordered gabapentin 300 mg oral capsule 300 mg, 1, capsule, By Mouth, Daily, APPOINTMENT 02/26/20, # 10 capsule, Refills 0, Tot. Refills 0, Maintenance, 02/22/20 13:44:00 EDT, Route to Pharmacy Electronically, [email or web address], 191, cm, 12/27/19 12:20:00 EDT, [...] EDT, Route to Pharmacy Electronically, [email or web address], 191, cm, 12/27/19 12:20:00 EDT, [...] Start Date: 08/06/19 Status: Ordered nystatin topical 361804 u/gm powder See Instructions, Topically 2 times [...] Maintenance,07/19/19 15:02:00 EST, Route to Pharmacy Electronically, [facility], 191, cm, 07/18/19 14:17:00 EST, Height, 193.5, kg, 05/21/19 5:38:00 E... Start Date: 07/19/19 Status: Ordered QUEtiapine 50 mg oral tablet 1 tablet = 50 mg, By Mouth, Daily, # 30 tablet, 5 Refills, Maintenance, 12/12/19 10:07:00 EDT, Tablet, [facility], 191, cm, 07/23/19 14:30:00 EST, Height, 193.5, kg, 05/21/19 5:38:00EST, Dry Weight Start Date: 12/12/19 Status: Ordered spironolactone 25 mg oral tablet 25 mg, 1, tablet, By Mouth, Daily, # 30 tablet, Refills 5, Tot. Refills 5, Maintenance, 02/19/20 9:52:00 EDT, Route to Pharmacy Electronically, [facility], 191, cm, 12/27/19 12:20:00EDT, Height, 193.5, kg, 05/21/19 5:38:00 EST, Dry Weight Start Date: 02/19/20 Status: Ordered traZODone 50 mg oral tablet 100 mg, 2, tablet, By Mouth, Daily at bedtime, # 60 tablet, Refills 5, Tot. Refills 5, Maintenance,02/01/20 10:29:00 EDT, Route to Pharmacy Electronically, [facility], 191, cm, 12/27/19 [...]
--- OUTSIDE RECORDS SUMMARY | 2022-10-04 17:52 | XMS_ITS | Continuity of Care Document ---
Author Name Unknown Organization [facility] [place] Aung Address [address] [place] [address]- Care Team Providers Care Food Service Worker Name Role Phone Sanaz WILKINS, Matheus Castro Primary Care Physician [place] [facility] [place]21 - 02/21/21 [facility] [place] Adult [address] [place] [address]- Allergies, Adverse Reactions, Alerts Substance Reaction Severity [...] kyle tetanus/diphtheria/pertussis, acel(Tdap) 05/07/09 Given 1Result Comment: [id number] 2Result Comment: [id number] 3Result Comment: [05/15/2018] [id number] Medications acetaminophen 325 mg oral tablet 650 mg, By Mouth, Every 4 hours, PRN, Refills 0, Maintenance, Pain , Mild, 12/12/19 13:05:00 EDT Start Date: 12/12/19 Status: Ordered apixaban 5 mg oral tablet 1 tablet = 5 mg, By Mouth, 2 times a day, # 60 tablet, 3 Refills, Maintenance, 01/13/21 15:09:00 EDT, Tablet, [facility], Partial fill upon patient request [...] Refills, Maintenance, 01/13/21 15:09:00 EDT, CR Capsule, [facility], Partial fill upon patient request if the prescription is for a schedule II opioid drug., 190, cm, 01/13/21 7:49:00... Start Date: 01/13/21 Stop Date: 03/14/21 Status: Ordered colchicine 0.6 mg oral tablet 0.6 mg, 1, tablet, By Mouth, 2 times a day, # 60 tablet, Refills 1, Tot. Refills 1, Maintenance, 01/13/21 15:09:00 EDT, Route to Pharmacy Electronically, [facility], Partial fill upon patient request if [...] 01/13/21 15:09:00 EDT, Route to Pharmacy Electronically, [facility], Partial fill upon patient request if [...] 01/18/21 11:37:00 EDT, Route to Pharmacy Electronically, [facility], Partial fill upon patient request if the prescription is for a errol... Start Date: 01/18/21 Status: Ordered Flonase 50 mcg/inh nasal spray 1 sprays, Nares, Both, 2 times a day, # 16 Gm, 11 Refills, Maintenance, 07/08/20 16:47:00 EST, [place], [facility], 1 sprays [...] Refills 0, Tot. Refills 0, Maintenance, dx: [id number]. 40, oxygen dependence Z99.81, 01/27/21 11:50:00 EDT, [...] 01/18/21 11:37:00 EDT, Route to Pharmacy Electronically, [facility], Partial fill upon patient request if [...] 1 Refills, Soft Stop, 01/13/21 15:30:00 EDT, [facility], 190, cm, 01/13/21 7:49:00 EDT, [...] EST, Route to Pharmacy Electronically, [facility], 191, cm, 07/18/19 14:17:00 EST, [...] Refills, Maintenance, 01/23/21 11:11:00 EDT, [facility], 190, cm, 01/23/21 8:35:00 EDT, Height, 153, kg, 01/14/21 23:22:00 EDT, Dry Weight Start Date: 01/23/21 Status: Ordered torsemide 20 mg oral tablet 2 tablet = 40 mg, By Mouth, Daily, # 60 tablet, 1 Refills, Maintenance, 01/13/21 15:10:00 EDT, Tablet, [facility], Partial fill upon patient request if the prescription is for a schedule II opioid drug., 190, cm, 01/13/21 7:49:00 EDT, He... Start Date: 01/13/21 Stop Date: 03/14/21 Status: Ordered traZODone 50 mg oral tablet 100 mg, 2, tablet, By Mouth, Daily at bedtime, # 60 tablet, Refills 5, Tot. Refills 5, Maintenance,01/23/21 11:11:00 EDT, Route to Pharmacy Electronically, [facility], 190, cm, 01/23/21 8:35:00 EDT, Height, 153, kg, 01/14/21 23:22:00 EDT... 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
--- OUTSIDE RECORDS SUMMARY | 2022-10-04 17:52 | XMS_ITS | Continuity of Care Document ---
Author Name Unknown Organization [facility] Eddie Aung Address [address] [place] [address]- Care Team Providers Care Multifold Operator Name Role Phone Matheus Yo MD Primary Care Physician [place] [facility] [place] 09/20/19 [facility] Adult [address] [place] [address]- [facility] Encounter Diagnosis Respiratory illness with fever(Discharge Diagnosis) - 09/13/19 Attending Physician: Matheus Yo MD Allergies, Adverse [...] kyle tetanus/diphtheria/pertussis, acel(Tdap) 05/07/09 Given 1Result Comment: [id number] 2Result Comment: [id number] 3Result Comment: [05/15/2018] 66253-549-51 Medications atorvastatin 20 mg oral tablet 1 tablet = 20 mg, By Mouth, Daily, # 90 tablet, 3 Refills, Soft Stop, 03/14/19 13:58:57 EDT Start Date: 03/14/19 Status: Ordered clopidogrel 75 mg oral tablet 75 mg, 1, tablet, By Mouth, Daily, # 30 tablet, Refills 5, Tot. Refills 5, Maintenance, 01/29/19 17:13:14 EDT, Route to Pharmacy Electronically, [id number], [facility] Start Date: [...] Gm, 0 Refills, Maintenance, 05/23/18 10:06:41 EST, [place], 1 sprays Nares, Both 2 times a [...] Maintenance, 07/18/2014:03:00 EST, Route to Pharmacy Electronically, [id number], 191, cm, 07/18/19 14:17:00 EST, Height, 193.5, [...] 08/06/19 14:53:00 EST, Route to Pharmacy Electronically, [facility], 191, cm, 07/23/19 14:30:00 EST, [...] TAKE 1 TABLET BY MOUTH EVERY MORNING, [id number] Start Date: 01/02/19 Status: Ordered LORazepam 2 mg oral tablet 1 tablet = 2 mg, By Mouth, 3 times a day, PRN for anxiety, # 90 tablet, 2 Refills, Maintenance, 07/18/19 15:00:00 EST, Tablet, [facility], 191, cm, 07/18/19 14:17:00 EST, [...] EST, Route to Pharmacy Electronically, [email or web address], 191, cm, 07/18/19 14:17:00 EST, [...] Maintenance, 08/06/19 13:46:00 EST, Tablet, [email or web address], 191, cm, 07/23/19 14:30:00 EST, [...] Maintenance, 07/18/19 15:00:00 EST, Tablet, [email or web address], 191, cm, 07/18/19 14:17:00 EST, Height, 193.5, kg, 05/21/19 5:38:00EST, Dry Weight Start Date: 07/18/19 Status: Ordered spironolactone 25 mg oral tablet 25 mg, 1, tablet, By Mouth, Daily, # 90 tablet, Refills 3, Tot. Refills 3, Maintenance, 12/28/18 15:03:05 EDT, Route to Pharmacy Electronically, [id number], [id number] Start Date: 12/28/18 Status: Ordered traZODone 50 [...] Effective Dates Health Status Clinical Service Informant Respiratory illness with fever Discharge Diagnosis 09/13/19 Social History Social History Type Response Smoking Status Never entered on: 05/15/18 Sex
--- OUTSIDE RECORDS SUMMARY | 2022-10-04 17:52 | XMS_ITS | Continuity of Care Document ---
Author Name Unknown Organization [facility] Aung Address [address] [place] [address]- Care Team Providers Care Overcoiler Name Role Phone Sanaz WILKINS, Matheus Castro Primary Care Physician Encounter [facility] Date(s): 05/06/20 - 06/05/20 [facility] Adult [address] [place] [address]- Allergies, Adverse Reactions, Alerts Substance Reaction Severity [...] kyle tetanus/diphtheria/pertussis, acel(Tdap) 05/07/09 Given 1Result Comment: [id number] 2Result Comment: [id number] 3Result Comment: [05/15/2018] 45114-014-88 Medications acetaminophen 325 mg oral tablet 650 [...] 05/07/20 10:14:00 EST, Route to Pharmacy Electronically, [facility], 191, cm, 12/27/19 12:20:00 EDT, Height, 193.5, kg, 05/21/19 5:38:00 EST, Dry Weight Start Date: 05/07/20 Stop Date: 11/03/20 Status: Ordered cyanocobalamin 1000 mcg oral tablet, extended release 1 tablet = 1,000 mcg, By Mouth, Daily, # 30 tablet, 11 Refills, Maintenance, 02/21/20 10:38:00 EDT,[facility], 191, cm, 12/27/19 12:20:00 EDT, [...] 12/12/19 13:24:00 EDT, Route to Pharmacy Electronically, [facility], 191, cm, 07/23/2013:30:00 EST, Height, 193.5, kg, 05/21/19 5:38:00 EST,... Start Date: 12/12/19 Status: Ordered Flonase 50 mcg/inh nasal spray 1 sprays, Nares, Both, 2 times a day, # 16 Gm, 0 Refills, Maintenance, 05/23/18 10:06:41 EST, [place], 1 sprays Nares, Both 2 times a day Start Date: 05/23/18 Status: Ordered gabapentin 300 mg oral capsule 300 mg, 1, capsule, By Mouth, 3 times a day, # 90 capsule, Refills 11, Tot. Refills 11, Maintenance, 04/28/20 13:15:00 EST, Route to Pharmacy Electronically, [facility], 191, cm, 12/27/19 12:20:00 EDT, Height, 193.5, kg, 05/21/19 5:38:00... Start Date: 04/28/20 Stop Date: 04/23/21 Status: Ordered hydrOXYzine hydrochloride 25 mg oral tablet 1 tablet = 25 mg, By Mouth, 3 times a day, # 90 tablet, 11 Refills, Maintenance, 04/09/20 16:46:00 EST, Tablet, [facility], 191, cm, 12/27/19 12:20:00 EDT, Height, 193.5, kg, 05/21/19 5:38:00 EST, Dry Weight Start Date: 04/09/20 Status: Ordered isosorbide mononitrate 60 mg oral tablet, extended release 60 mg, 1, tablet, By Mouth, Daily in AM, # 90 tablet, Refills 0, Tot. Refills 0, Soft Stop, 02/20/20 14:34:00 EDT, Route to Pharmacy Electronically, [facility], 191, cm, 12/27/19 12:20:00 EDT, Height, 193.5, kg, 05/21/19 5:38:00 EST, Dry... Start Date: 02/20/20 Status: Ordered Lasix 40 mg oral tablet 40 mg, 1, tablet, By Mouth, 2 times a day, # 60 tablet, Refills 5, Tot. Refills 5, Maintenance, 03/31/20 17:16:00 EDT, Route to Pharmacy Electronically, [facility], 191, cm, 12/27/2011:20:00 EDT, Height, 193.5, kg, 05/21/19 5:38:00 EST,... Start Date: 03/31/20 Status: Ordered lisinopril 40 mg oral tablet 1 tablet = 40 mg, By Mouth, Daily, APPOINTMENT 02/26/20, # 10 tablet, 0 Refills, Maintenance, 02/22/20 13:44:00 EDT, Tablet, [facility], 191, cm, 12/27/19 12:20:00 EDT, Height, 193.5,kg, 05/21/19 5:38:00 EST, Dry Weight Start Date: 02/22/20 Status: Ordered loperamide 2 mg oral tablet 1 tablet = 2 mg, By Mouth, Every 4 hours, PRN as needed for loose stool, not to exceed 16 mg/day, #100 tablet, 0 Refills, Maintenance, 04/28/20 13:13:00 EST, Tablet, [facility], Partial fill upon patient request, 191, cm, 12/27/19 12:20:... Start Date: 04/28/20 Status: Ordered LORazepam 2 mg oral tablet 1 tablet = 2 mg, By Mouth, 3 times a day, PRN for anxiety, # 90 tablet, 2 Refills, Maintenance, 04/28/20 13:18:00 EST, Tablet, [facility], 191, cm, 12/27/19 12:20:00 EDT, [...] Start Date: 05/07/20 Status: Ordered nystatin topical 414725 u/gm powder See Instructions, Topically 2 times [...] 02/19/20 9:52:00 EDT, Route to Pharmacy Electronically, [facility], 191, cm, 12/27/19 12:20:00EDT, Height, 193.5, kg, 05/21/19 5:38:00 EST, Dry Weight Start Date: 02/19/20 Status: Ordered traZODone 50 mg oral tablet 100 mg, 2, tablet, By Mouth, Daily at bedtime, # 60 tablet, Refills 5, Tot. Refills 5, Maintenance,02/01/20 10:29:00 EDT, Route to Pharmacy Electronically, [facility], 191, cm, 12/27/19 12:20:00 EDT, Height, 193.5, kg, 05/21/19 5:38:00 E... Start Date: 02/01/20 Status: Ordered Vitamin D3 2000 intl units oral tablet 1 tablet = 2,000 International_Units, By Mouth, Daily, # 90 tablet, 1 Refills, Maintenance, 02/20/20 14:34:00 EDT, [facility], 191, cm, 12/27/19 12:20:00 EDT, [...]
--- OUTSIDE RECORDS SUMMARY | 2022-10-04 17:52 | XMS_ITS | Continuity of Care Document ---
Author Name Unknown Organization [facility] Aung lt Address [address] [place] [address]- Care Team Providers Care Systems Coordinator Name Role Phone Tal WILKINS, Brown Paz Primary Care Physician En[facility] [place] [place] Date(s): 02/04/22 - 03/14/22 [facility] Adult [address] [place] [address]- Attending Physician: Not on Staff, Attending MD [...] Reason: Med Not Available 2Result Comment: [05/15/2018] [id number] 3Result Comment: [id number] 4Result Comment: [id number] Medications apixaban 5 mg oral tablet 1 [...] Gm, 11 Refills, Maintenance, 07/08/20 16:47:00 EST, [place], [facility], 1 sprays [...] 07/21/21 11:47:00 EST, Solution, [facility], Partial fill upon [...] Refills, Maintenance, 03/09/22 9:51:00 EDT, [facility], 191, cm, 02/11/22 11:45:00 EDT, [...] COMMUNICATE SUGARS WITH PCP TO TITRATE LANTUS. [phone], 08/28... Start Date: 08/28/21 Status: Ordered One [...] opioid drug., 190, cm, 07/27/21 12:49:00 EST, [place]ureen... Start Date: 08/17/21 Stop Date: 02/13/22 Status: [...] Painful peripheral neuropathy - NOS Confirmed Active intermediate prescription benzodiazepine use Confirmed Active Limited mobility Confirmed Active Severe obesity Confirmed Active Non-insulin dependent type 2 diabetes mellitus Confirmed Active Social History Social History Type Response Smoking Status Never entered on: 05/15/18 Sex Patient Care team information Personnel Name: Brown Parada MD Address: Address: [address] [place] [id number]
--- OUTSIDE RECORDS SUMMARY | 2022-10-04 17:52 | XMS_ITS | Continuity of Care Document ---
Author Name Unknown Organization [facility] A[facility] lt Address [address] [place] [address]- Care Team Providers Care Feeder Catcher Name Role Phone Tal WILKINS, Brown Paz Primary Care Physician [phone] [place] [facility] [place]s): 07/07/21 - 08/06/21 [facility] Adult [address] [place] [address]- Allergies, Adverse Reactions, Alerts Substance Reaction Severity [...] Reason: Med Not Available 2Result Comment: [05/15/2018] 41060-733-31 3Result Comment: [id number] 4Result Comment: [id number] Medications acetaminophen 325 mg oral tablet 650 [...] bedtime., 07/21/21 11:42:00 EST, Supply, 190, cm, 10/29/21 10:25:00 EDT, Height, 153, kg,01/14/21 23:22:00 EDT, [...] 07/21/21 11:40:00 EST, Route to Pharmacy Electronically, [facility], Partial fill upon patient request if the prescription is for a schedule II opioid drug., 1... Start Date: 07/21/21 Status: Ordered Flonase 50 mcg/inh nasal spray 1 sprays, Nares, Both, 2 times a day, # 16 Gm, 11 Refills, Maintenance, 07/08/20 16:47:00 EST, [place], [facility], 1 sprays [...] Refills, Maintenance, 07/21/21 11:47:00 EST, Solution, [facility], Partial fill upon patient request [...] 0 Refills, Maintenance, 07/21/21 11:40:00 EST, Tablet, [facility], Partial fill upon patient request [...] 04/02/21 8:22:00 EDT, Route to Pharmacy Electronically, [facility], 190, cm, 01/23/21 8:35:00 EDT, Height, 153, kg, 01/14/21... 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
--- OUTSIDE RECORDS SUMMARY | 2022-10-04 17:52 | XMS_ITS | Continuity of Care Document ---
Author Name Unknown Organization [facility] Eddie Aung Address [address] [place] [address]- Care Team Providers Care Shower Enclosure Installer Name Role Phone Matheus Yo MD Primary Care Physician [phone] En[place] [facility] [place] Date(s): 07/18/19 - 09/15/19 [facility] Adult [address] [place] [address]- [facility] Attending Physician: Matheus Yo MD Allergies, Adverse [...] kyle tetanus/diphtheria/pertussis, acel(Tdap) 05/07/09 Given 1Result Comment: [id number] 2Result Comment: [id number] 3Result Comment: [05/15/2018] 11462-508-91 Medications atorvastatin 20 mg oral tablet 1 tablet = 20 mg, By Mouth, Daily, # 90 tablet, 3 Refills, Soft Stop, 03/14/19 13:58:57 EDT Start Date: 03/14/19 Status: Ordered clopidogrel 75 mg oral tablet 75 mg, 1, tablet, By Mouth, Daily, # 30 tablet, Refills 5, Tot. Refills 5, Maintenance, 01/29/19 17:13:14 EDT, Route to Pharmacy Electronically, [id number], [facility] Start Date: [...] Gm, 0 Refills, Maintenance, 05/23/18 10:06:41 EST, [place], 1 sprays Nares, Both 2 times a [...] Maintenance, 07/18/2014:03:00 EST, Route to Pharmacy Electronically, [id number], 191, cm, 07/18/19 14:17:00 EST, Height, 193.5, [...] 08/06/19 14:53:00 EST, Route to Pharmacy Electronically, [facility], 191, cm, 07/23/19 14:30:00 EST, [...] MORNING, [facility] #[id number] Start Date: 01/02/19 Status: Ordered LORazepam 2 mg oral tablet 1 tablet = 2 mg, By Mouth, 3 times a day, PRN for anxiety, # 90 tablet, 2 Refills, Maintenance, 07/18/19 15:00:00 EST, Tablet, [facility], 191, cm, 07/18/19 14:17:00 EST, [...] EST, Route to Pharmacy Electronically, [facility], 191, cm, 07/18/19 14:17:00 EST, [...] Maintenance, 08/06/19 13:46:00 EST, Tablet, [facility], 191, cm, 07/23/19 14:30:00 EST, [...] Maintenance, 07/18/19 15:00:00 EST, Tablet, [facility], 191, cm, 07/18/19 14:17:00 EST, Height, 193.5, kg, 05/21/19 5:38:00EST, Dry Weight Start Date: 07/18/19 Status: Ordered spironolactone 25 mg oral tablet 25 mg, 1, tablet, By Mouth, Daily, # 90 tablet, Refills 3, Tot. 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
--- OUTSIDE RECORDS SUMMARY | 2022-10-04 17:52 | XMS_ITS | Continuity of Care Document ---
Author Name Unknown Organization [facility] Aung Address [address] [place] [address]- Care Team Providers Care Hops Farmworker Name Role Phone Sanaz WILKINS, Matheus Castro Primary Care Physician [facility]counter [facility] Date(s): 02/17/21 - 03/19/21 [facility] Adult [address] [place] [address]- Allergies, Adverse Reactions, Alerts Substance Reaction Severity [...] kyle tetanus/diphtheria/pertussis, acel(Tdap) 05/07/09 Given 1Result Comment: [id number] 2Result Comment: [id number] 3Result Comment: [05/15/2018] [id number] Medications acetaminophen 325 mg oral tablet 650 mg, By Mouth, Every 4 hours, PRN, Refills 0, Maintenance, Pain , Mild, 12/12/19 13:05:00 EDT Start Date: 12/12/19 Status: Ordered apixaban 5 mg oral tablet 1 tablet = 5 mg, By Mouth, 2 times a day, # 60 tablet, 3 Refills, Maintenance, 01/13/21 15:09:00 EDT, Tablet, [facility], Partial fill upon patient [...] Refills, Maintenance, 01/13/21 15:09:00 EDT, CR Capsule, [facility], Partial fill upon patient request if the prescription is for a schedule II opioid drug., 190, cm, 01/13/21 7:49:00... Start Date: 01/13/21 Stop Date: 03/14/21 Status: Ordered colchicine 0.6 mg oral tablet 0.6 mg, 1, tablet, By Mouth, 2 times a day, # 60 tablet, Refills 1, Tot. Refills 1, Maintenance, 01/13/21 15:09:00 EDT, Route to Pharmacy Electronically, [facility], Partial fill upon patient [...] 01/13/21 15:09:00 EDT, Route to Pharmacy Electronically, [facility], Partial fill upon patient request if [...] 01/18/21 11:37:00 EDT, Route to Pharmacy Electronically, [facility], Partial fill upon patient request if the prescription is for a errol... Start Date: 01/18/21 Status: Ordered Flonase 50 mcg/inh nasal spray 1 sprays, Nares, Both, 2 times a day, # 16 Gm, 11 Refills, Maintenance, 07/08/20 16:47:00 EST, [place], [facility], 1 sprays Nares, Both 2 times a day, 191, cm, 06/24/20 13:40:00 EST, Height, 193.5, kg, 05/21/19 5:38:00 EST, Dry Weight Start Date: 07/08/20 Status: Ordered gabapentin 300 mg oral capsule 300 mg, 1, capsule, By Mouth, 4 times a day, BUBBLE PACK, # 112 capsule, Refills 5, Tot. Refills 5,Maintenance, 02/23/21 16:53:00 EDT, Route to Pharmacy Electronically, [facility], 190, cm, 01/23/21 8:35:00 EDT, Height, 153, kg, 01/14/21... Start Date: 02/23/21 Status: Ordered home pulse oximeter home pulse oximeter, See Instructions, # 1 each, Refills 0, Tot. Refills 0, Maintenance, dx: [id number]. 40, oxygen dependence Z99.81, 01/27/21 11:50:00 EDT, [...] 01/18/21 11:37:00 EDT, Route to Pharmacy Electronically, [facility], Partial fill upon patient request if [...] 1 Refills, Soft Stop, 01/13/21 15:30:00 EDT, [facility], 190, cm, 01/13/21 7:49:00 [...] bedtime, BUBBLE PACK, # 28 capsule, Refills 5, Tot. Refills 5,Maintenance, 02/23/21 16:53:00 EDT, Route to Pharmacy Electronically, [facility], 190, cm, 01/23/21 8:35:00 EDT, Height, 153, kg, 01/14/21... 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
--- OUTSIDE RECORDS SUMMARY | 2022-10-04 17:52 | XMS_ITS | Continuity of Care Document ---
Author Name Unknown Organization [facility] Address [address] [place] [address]- Care Team Providers Care Aviation Project Manager Name Role Phone Tal WILKINS, Brown Paz Primary Care Physician [phone] Encounter [facility] Date(s): 09/24/21 - 10/24/21 [facility] Adult [address] [place] [address]- Allergies, Adverse Reactions, Alerts Substance Reaction Severity [...] Reason: Med Not Available 2Result Comment: [05/15/2018] [id number] 3Result Comment: [id number] 4Result Comment: [id number] Medications acetaminophen 325 mg oral tablet 650 [...] Gm, 11 Refills, Maintenance, 07/08/20 16:47:00 EST, [place], [facility], 1 sprays [...] 0 Refills, Maintenance, 07/21/21 11:47:00 EST, Solution, [facility], Partial fill upon patient [...] 0 Refills, Soft Stop, 09/24/21 18:09:00 EDT, [facility], Partial fill upon patient request [...] COMMUNICATE SUGARS WITH PCP TO TITRATE LANTUS. [phone], 08/28... Start Date: 08/28/21 Status: Ordered One [...] 10/22/21 15:28:00 EDT, Route to Pharmacy Electronically, [facility], Partial fill upo... Start Date: [...] 168 capsule, 5 Refills, 09/15/21 5:56:00 EDT, [facility], 191, cm, 08/28/21 11:32:00 EDT, Height, 168.5, kg, 08/18/21 22:23:00 EDT... Start Date: 09/15/21 Status: Ordered prazosin 5 mg oral capsule 5 mg, 1, capsule, By Mouth, Daily at bedtime, BUBBLE PACK, # 28 capsule, Refills 4, Tot. Refills 4,Maintenance, 04/02/21 8:22:00 EDT, Route to Pharmacy Electronically, [facility], 190, cm, 01/23/21 8:35:00 EDT, Height, 153, kg, 01/14/21... Start Date: 04/02/21 Status: Ordered ProAir HFA 90 mcg/inh inhalation aerosol 2 puffs, Inhalation, Every 4 hours, PRN Wheezing/Shortness of Breath, # 1 each, 5 Refills, Maintenance, 06/27/20 16:56:00 EST, [facility], Partial fill upon patient request [...]
--- OUTSIDE RECORDS SUMMARY | 2022-10-04 17:52 | XMS_ITS | Continuity of Care Document ---
Author Name Unknown Organization [facility] Eddie A[facility] lt Address [address] [place] [address]- Care Team Providers Care Realtime Court Reporter Name Role Phone Sanaz WILKINS, Matheus Castro Primary Care Physician Encounter [facility] Date(s): 12/04/19 - 12/11/19 [facility] Adult [address] [place] [address]- [facility] Encounter Diagnosis Epilepsy(Discharge Diagnosis) - 12/04/19 Diabetes mellitus with neuropathy(Discharge Diagnosis) - 12/04/19 Morbid obesity with BMI of 50.0-59.9, adult(Discharge Diagnosis) - 12/04/19 Attending Physician: Que FROST, Bella Posadas Allergies, Adverse Reactions, Alerts Substance Reaction Severity [...] kyle tetanus/diphtheria/pertussis, acel(Tdap) 05/07/09 Given 1Result Comment: [id number] 2Result Comment: [id number] 3Result Comment: [05/15/2018] [id number] Medications atorvastatin 20 mg oral tablet 1 tablet = 20 mg, By Mouth, Daily, # 90 tablet, 3 Refills, Soft Stop, 03/14/19 13:58:57 EDT Start Date: 03/14/19 Status: Ordered clopidogrel 75 mg oral tablet 75 mg, 1, tablet, By Mouth, Daily, # 30 tablet, Refills 5, Tot. Refills 5, Maintenance, 10/25/19 8:57:00 EDT, Route to Pharmacy Electronically, [email or web address], 191, cm, 07/23/19 14:30:00EST, Height, [...] Dry Weight Start Date: 07/19/19 Status: Ordered Flonase 50 mcg/inh nasal spray 1 sprays, Nares, Both, 2 times a day, # 16 Gm, 0 Refills, Maintenance, 05/23/18 10:06:41 EST, [place], 1 sprays Nares, Both 2 times a day Start Date: 05/23/18 Status: Ordered furosemide 40 mg oral tablet 40 mg, 1, tablet, By Mouth, 2 times a day, # 30 tablet, Refills 3, Tot. Refills [...] EST, Route to Pharmacy Electronically, [email or web address], 191, cm, 07/23/19 14:30:00 EST, Height, 193.5, kg, 05/21/19 5:38:00 EST, Dry... Start Date: 08/06/19 Status: Ordered lisinopril 40 mg oral tablet 1 tablet = 40 mg, By Mouth, Daily in AM, # 30 tablet, 2 Refills, Soft Stop, 11/27/19 13:41:00 EDT, [email or web address], 191, cm, 07/23/19 14:30:00 EST, Height, 193.5, kg, 05/21/19 5:38:00 EST, Dry Weight Start Date: 11/27/19 Status: Ordered LORazepam 2 mg oral tablet 1 tablet = 2 mg, By Mouth, 3 times a day, PRN for anxiety, # 90 tablet, 2 Refills, Maintenance, 10/03/19 11:11:00 EDT, Tablet, [email or web address], 191, cm, 07/23/19 14:30:00 EST, Height, 193.5, kg, 05/21/19 5:38:00 EST, Dry Weight Start Date: 10/03/19 Status: Ordered metFORMIN 1000 mg oral tablet [...] Start Date: 08/06/19 Status: Ordered nystatin topical 292394 u/gm powder See Instructions, Topically 2 times a day, # 30 Gm, 3 Refills, Maintenance, 10/16/19 16:18:00 EDT, Powder, [email or web address], Topically 2 times a day, 191, cm, 07/23/19 14:30:00 EST, Height, 193.5, kg, 05/21/19 5:38:00 EST, Dry Weight Start Date: 10/16/19 Status: Ordered pantoprazole 40 mg oral delayed [...] Maintenance,07/19/19 15:02:00 EST, Route to Pharmacy Electronically, [facility], 191, cm, 07/18/19 14:17:00 EST, Height, 193.5, kg, 05/21/19 5:38:00 E... Start Date: 07/19/19 Status: Ordered QUEtiapine 50 mg oral tablet 1 tablet = 50 mg, By Mouth, Daily, # 30 tablet, 5 Refills, Maintenance, 07/18/19 15:00:00 EST, Tablet, [email or web address], 191, cm, 07/18/19 14:17:00 EST, Height, 193.5, kg, 05/21/19 5:38:00EST, Dry Weight Start Date: 07/18/19 Status: Ordered spironolactone 25 mg oral tablet 25 mg, 1, tablet, By Mouth, Daily, # 90 tablet, Refills 3, Tot. Refills 3, Maintenance, 12/28/18 15:03:05 EDT, Route to Pharmacy Electronically, [id number], [id number] Start Date: 12/28/18 Status: Ordered traZODone 50 [...] Effective Dates Health Status Clinical Service Informant Epilepsy Discharge Diagnosis 12/04/19 Diabetes mellitus with neuropathy Discharge Diagnosis 12/04/19 Morbid obesity with BMI of 50.0-59.9, adult Discharge Diagnosis 12/04/19 Social History Social History Type Response Smoking Status Never entered on: 05/15/18 Sex
--- OUTSIDE RECORDS SUMMARY | 2022-10-04 17:52 | XMS_ITS | Continuity of Care Document ---
Author Name Unknown Organization [facility] Address [address] [place] [address]- Care Team Providers Care Mixing Machine Operator Name Role Phone Matheus Yo MD Primary Care Physician [phone] Encounter [facility] Date(s): 10/16/19 - 11/29/19 [facility] Adult [address] [place] [address]- [facility] Attending Physician: Matheus Yo MD Allergies, Adverse [...] kyle tetanus/diphtheria/pertussis, acel(Tdap) 05/07/09 Given 1Result Comment: [id number] 2Result Comment: [id number] 3Result Comment: [05/15/2018] [id number] Medications atorvastatin 20 mg oral tablet 1 [...] Gm, 0 Refills, Maintenance, 05/23/18 10:06:41 EST, [place], 1 sprays Nares, Both 2 times a [...] Maintenance, 07/18/2014:03:00 EST, Route to Pharmacy Electronically, [id number], 191, cm, 07/18/19 14:17:00 EST, Height, 193.5, [...] 08/06/19 14:53:00 EST, Route to Pharmacy Electronically, [facility], 191, cm, 07/23/19 14:30:00 EST, [...] 2 Refills, Soft Stop, 11/27/19 13:41:00 EDT, [facility], 191, cm, 07/23/19 14:30:00 EST, Height, 193.5, kg, 05/21/19 5:38:00 EST, Dry Weight Start Date: 11/27/19 Status: Ordered LORazepam 2 mg oral tablet 1 tablet = 2 mg, By Mouth, 3 times a day, PRN for anxiety, # 90 tablet, 2 Refills, Maintenance, 10/03/19 11:11:00 EDT, Tablet, [facility], 191, cm, 07/23/19 14:30:00 EST, [...] Start Date: 08/06/19 Status: Ordered nystatin topical 018108 u/gm powder See Instructions, Topically 2 times [...] 0 Refills, Maintenance, 10/03/19 15:22:00 EDT, Tablet, [facility], 191, cm, 07/23/19 14:30:00 EST, Height, 193.5, kg, 05/21/19 5:38:00 EST, Dry Weight Start Date: 10/03/19 Status: Ordered QUEtiapine 25 mg oral tablet 50 mg, 2, tablet, By Mouth, Daily at bedtime, # 60 tablet, Refills 1, Tot. Refills 1, Maintenance, 10/16/19 16:26:00 EDT, Route to Pharmacy Electronically, [facility] [...] 12/28/18 15:03:05 EDT, Route to Pharmacy Electronically, [id number], [id number] Start Date: 12/28/18 Status: Ordered traZODone 50 [...]
--- OUTSIDE RECORDS SUMMARY | 2022-10-04 17:52 | XMS_ITS | Continuity of Care Document ---
Author Name Unknown Organization [facility] Eddie Aung Address [address] [place] [address]- Care Team Providers Care Sports Medicine Physician Name Role Phone Sanaz WILKINS, Matheus Castro Primary Care Physician [facility] Date(s): 01/23/20 - 02/22/20 [facility] Adult [address] [place] [address]- [facility] Allergies, Adverse Reactions, Alerts Substance Reaction Severity [...] kyle tetanus/diphtheria/pertussis, acel(Tdap) 05/07/09 Given 1Result Comment: [id number] 2Result Comment: [id number] 3Result Comment: [05/15/2018] 72798-731-71 Medications acetaminophen 325 mg oral tablet 650 [...] 10/25/19 8:57:00 EDT, Route to Pharmacy Electronically, [facility], 191, cm, 07/23/19 14:30:00EST, Height, 193.5, kg, 05/21/19 5:38:00 EST, Dry Weight Start Date: 10/25/19 Stop Date: 04/22/20 Status: Ordered cyanocobalamin 1000 mcg oral tablet, extended release 1 tablet = 1,000 mcg, By Mouth, Daily, # 30 tablet, 11 Refills, Maintenance, 02/21/20 10:38:00 EDT,[facility], 191, cm, 12/27/19 12:20:00 EDT, [...] EDT, Route to Pharmacy Electronically, [facility], 191, cm, 07/23/2013:30:00 EST, Height, 193.5, kg, 05/21/19 5:38:00 EST,... Start Date: 12/12/19 Status: Ordered Flonase 50 mcg/inh nasal spray 1 sprays, Nares, Both, 2 times a day, # 16 Gm, 0 Refills, Maintenance, 05/23/18 10:06:41 EST, [place], 1 sprays Nares, Both 2 times a day Start Date: 05/23/18 Status: Ordered gabapentin 300 mg oral capsule 300 mg, 1, capsule, By Mouth, Daily, APPOINTMENT 02/26/20, # 10 capsule, Refills 0, Tot. Refills 0, Maintenance, 02/22/20 13:44:00 EDT, Route to Pharmacy Electronically, [facility], 191, cm, 12/27/19 12:20:00 EDT, [...] EDT, Route to Pharmacy Electronically, [facility], 191, cm, 12/27/19 12:20:00 EDT, [...] Start Date: 08/06/19 Status: Ordered nystatin topical 848095 u/gm powder See Instructions, Topically 2 times [...] Maintenance,07/19/19 15:02:00 EST, Route to Pharmacy Electronically, [facility], 191, cm, 07/18/19 14:17:00 EST, Height, 193.5, kg, 05/21/19 5:38:00 E... Start Date: 07/19/19 Status: Ordered QUEtiapine 50 mg oral tablet 1 tablet = 50 mg, By Mouth, Daily, # 30 tablet, 5 Refills, Maintenance, 12/12/19 10:07:00 EDT, Tablet, [facility], 191, cm, 07/23/19 14:30:00 EST, Height, 193.5, kg, 05/21/19 5:38:00EST, Dry Weight Start Date: 12/12/19 Status: Ordered spironolactone 25 mg oral tablet 25 mg, 1, tablet, By Mouth, Daily, # 30 tablet, Refills 5, Tot. Refills 5, Maintenance, 02/19/20 9:52:00 EDT, Route to Pharmacy Electronically, [facility], 191, cm, 12/27/19 12:20:00EDT, Height, 193.5, kg, 05/21/19 5:38:00 EST, Dry Weight Start Date: 02/19/20 Status: Ordered traZODone 50 mg oral tablet 100 mg, 2, tablet, By Mouth, Daily at bedtime, # 60 tablet, Refills 5, Tot. Refills 5, Maintenance,02/01/20 10:29:00 EDT, Route to Pharmacy Electronically, [facility], 191, [...]
--- OUTSIDE RECORDS SUMMARY | 2022-10-04 17:53 | XMS_ITS | Continuity of Care Document ---
Author Name Unknown Organization [facility] Eddie Aung lt Address [address] [place] [address]- Care Team Providers Care Earrings Fabricator Name Role Phone Matheus Yo MD Primary Care Physician [phone] Encounter [facility] Date(s): 12/27/19 - 01/26/20 [facility] Adult [address] [place] [address]- [facility] Attending Physician: Admtr, Ar8 Admitting Physician: Admtr, [...] kyle tetanus/diphtheria/pertussis, acel(Tdap) 05/07/09 Given 1Result Comment: [id number] 2Result Comment: [id number] 3Result Comment: [05/15/2018] 30722-521-81 Medications acetaminophen 325 mg oral tablet 650 [...] 10/25/19 8:57:00 EDT, Route to Pharmacy Electronically, [facility], 191, cm, 07/23/19 14:30:00EST, Height, 193.5, kg, 05/21/19 5:38:00 EST, Dry Weight Start Date: 10/25/19 Stop Date: 04/22/20 Status: Ordered cyanocobalamin 1000 mcg oral tablet, extended release 1 tablet = 1,000 mcg, By Mouth, Daily, # 30 tablet, 0 Refills, Maintenance, 01/25/20 16:01:00 EDT, [facility], 191, cm, 12/27/19 12:20:00 EDT, Height, 193.5, kg, 05/21/19 5:38:00 EST, Dry Weight Start Date: 01/25/20 Status: Ordered duloxetine 30 mg oral enteric coated capsule 1 capsule = 30 mg, By Mouth, 2 times a day, # 60 capsule, 5 Refills, 07/19/19 15:03:00 EST, [facility], 191, cm, 07/18/19 14:17:00 EST, Height, 193.5, kg, 05/21/19 5:38:00 EST, Dry Weight Start Date: 07/19/19 Status: Ordered famotidine 20 mg oral tablet 20 mg, 1, tablet, By Mouth, 2 times a day, # 60 tablet, Refills 2, Tot. Refills 2, Maintenance, 12/12/19 13:24:00 EDT, Route to Pharmacy Electronically, [facility], 191, cm, 07/23/2013:30:00 EST, Height, 193.5, kg, 05/21/19 5:38:00 EST,... Start Date: 12/12/19 Status: Ordered Flonase 50 mcg/inh nasal spray 1 sprays, Nares, Both, 2 times a day, # 16 Gm, 0 Refills, Maintenance, 05/23/18 10:06:41 EST, [place], 1 sprays Nares, Both 2 times a [...] Start Date: 08/06/19 Status: Ordered nystatin topical 281875 u/gm powder See Instructions, Topically 2 times [...] Maintenance,07/19/19 15:02:00 EST, Route to Pharmacy Electronically, [facility], 191, cm, 07/18/19 [...] Maintenance,07/24/19 11:40:00 EST, Route to Pharmacy Electronically, [facility], 191, cm, 07/23/19 14:30:00 EST, Height, 193.5, kg, 05/21/19 5:38:00 E... 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
--- OUTSIDE RECORDS SUMMARY | 2022-10-04 17:53 | XMS_ITS | Continuity of Care Document ---
Author Name Unknown Organization [facility] Eddie Aung lt Address [address] [place] [address]- Care Team Providers Care Powertrain Calibration Engineer Name Role Phone Brown Parada MD Primary Care Physician Encounter [facility] Date(s): 12/10/21 - 03/13/22 [facility] Adult [address] [place] [address]- Attending Physician: Brown Parada MD Allergies, Adverse [...] Reason: Med Not Available 2Result Comment: [05/15/2018] 33523-004-25 3Result Comment: [id number] 4Result Comment: [id number] Medications apixaban 5 mg oral tablet 1 [...] Gm, 11 Refills, Maintenance, 07/08/20 16:47:00 EST, [place], [facility], 1 sprays [...] 0 Refills, Maintenance, 07/21/21 11:47:00 EST, Solution, [facility], Partial fill upon patient request if [...] Refills, Maintenance, 03/09/22 9:51:00 EDT, [facility], 191, cm, 02/11/22 11:45:00 EDT, [...] COMMUNICATE SUGARS WITH PCP TO TITRATE LANTUS. [phone], 08/28... Start Date: 08/28/21 Status: Ordered One [...] Personnel Name: Brown Parada MD Address: Address: [address] [place] [address]
--- OUTSIDE RECORDS SUMMARY | 2022-10-04 17:53 | XMS_ITS | Continuity of Care Document ---
Author Name Unknown Organization [facility] Eddie Aung lt Address [address] [place] [address]- Care Team Providers Care Equipment Processor Name Role Phone Tal WILKINS, Brown Paz Primary Care Physician [phone] Encounter [facility] Date(s): 12/03/21 - 12/10/21 [facility] [place] Adult [address] [place] [address]- Encounter Diagnosis Left shoulder pain(Discharge Diagnosis) - 12/03/21 Dysphagia(Discharge Diagnosis) - 12/03/21 Attending Physician: Murphy Jimenez MD Allergies, Adverse Reactions, Alerts Substance Reaction [...] Reason: Med Not Available 2Result Comment: [05/15/2018] 34233-237-68 3Result Comment: [id number] 4Result Comment: [id number] Medications acetaminophen 325 mg oral tablet 650 [...] capsule, 3 Refills, Maintenance, 10/16/21 4:17:00 EDT, [place], [facility], Partial fill [...] Gm, 11 Refills, Maintenance, 07/08/20 16:47:00 EST, [place], [facility], 1 sprays [...] Details, Route to Pharmacy Electronically, [facility], 190, cm, 07/27/21 12:49... Start Date: 07/30/21 Status: Ordered hydrOXYzine hydrochloride 25 mg oral tablet 1 tablet, By Mouth, 3 times a day, BUBBLE PACK, # 84 tablet, 5 Refills, Maintenance, 07/30/21 9:02:00 EST, [facility], 190, cm, 07/27/21 12:49:00 EST, [...] Maintenance, 07/21/21 11:47:00 EST, Solution, [facility], Partial fill upon patient request if [...] COMMUNICATE SUGARS WITH PCP TO TITRATE LANTUS. [phone], 08/28... Start Date: 08/28/21 Status: Ordered One [...] 168 capsule, 5 Refills, 09/15/21 5:56:00 EDT, [facility], 191, cm, 08/28/21 11:32:00 EDT, Height, 168.5, kg, 08/18/21 22:23:00 EDT... Start Date: 09/15/21 Status: Ordered prazosin 5 mg oral capsule 5 mg, 1, capsule, By Mouth, Daily at bedtime, BUBBLE PACK, # 28 capsule, Refills 4, Tot. Refills 4,Maintenance, 04/02/21 8:22:00 EDT, Route to Pharmacy Electronically, [facility], 190, cm, 01/23/21 8:35:00 EDT, Height, 153, kg, 01/14/21... Start Date: 04/02/21 Status: Ordered ProAir HFA 90 mcg/inh inhalation aerosol 2 puffs, Inhalation, Every 4 hours, PRN Wheezing/Shortness of Breath, # 1 each, 5 Refills, Maintenance, 06/27/20 16:56:00 EST, [facility], Partial fill upon patient request [...] Diagnosis Diagnosis Type Effective Dates Health Status Cl inical Service Informant Left shoulder pain Discharge Diagnosis 12/03/21 Dysphagia Discharge Diagnosis 12/03/21 Social History Social History Type Response Smoking Status Never entered on: 05/15/18 Sex
--- OUTSIDE RECORDS SUMMARY | 2022-10-04 17:53 | XMS_ITS | Continuity of Care Document ---
Author Name Unknown Organization [facility], [place], [facility] Address [address] [place] [address]- Care Team Providers Care Multicut Line Operator Name Role Phone Matheus Yo MD Primary Care Physician Encounter [facility] Date(s): 04/19/19 - 05/31/19 [facility] [place] Adult [address] [place] [address]- [facility] Attending Physician: Matheus Yo MD Allergies, Adverse Reactions, Alerts Substance Reaction Severity Status clindamycin Hives Active penicillin rash Active aspirin Active Bee Stings Active Contrast Dye urticaria Active Latex anaphylaxis Active antivenin (black spider) Active Immunizations Given and Recorded Vaccine Date Status Refusal Reason influenza virus vaccine, inactivated 1 05/15/18 Gi kyle tetanus/diphtheria/pertussis, acel(Tdap) 05/07/09 Given 1Result Comment: [05/15/2018] 62993-461-72 Medications atorvastatin 20 mg oral tablet 1 tablet = 20 mg, By Mouth, Daily, # 90 tablet, 3 Refills, Soft Stop, 03/14/19 13:58:57 EDT Start Date: 03/14/19 Status: Ordered clopidogrel 75 mg oral tablet 75 mg, 1, tablet, By Mouth, Daily, # 30 tablet, Refills 5, Tot. Refills 5, Maintenance, 01/29/19 17:13:14 EDT, Route to Pharmacy Electronically, [id number], [facility] Start Date: [...] 0 Refills, Maintenance, 05/23/18 10:06:41 EST, [place], 1 sprays Nares, Both 2 times a day Start Date: 05/23/18 Status: Ordered furosemide 40 mg oral tablet 40 mg, 1, tablet, By Mouth, 2 times a day, # 180 tablet, Refills 3, Tot. Refills 3, Maintenance, 03/14/19 13:59:16 EDT, Route to Pharmacy Electronically, [id number], [facility] Start Date: [...] 12/28/18 15:10:14 EDT, Route to Pharmacy Electronically, [id number], [id number] Start Date: 12/28/18 Status: Ordered lidocaine 5% topical film APPLY ONE PATCH TO THE KNEE AND APPLY ONE PATCH TO THE LOWER BACK DAILY UTD. Start Date: 06/01/18 Status: Ordered lisinopril 40 mg oral tablet See Instructions, # 30 tablet, Refills 5 Tot. Refills 5, TAKE 1 TABLET BY MOUTH EVERY MORNING, [id number] Start Date: 01/02/19 Status: Ordered LORazepam 2 [...] 12/28/18 15:03:05 EDT, Route to Pharmacy Electronically, [id number], [id number] Start Date: 12/28/18 Status: Ordered traZODone 50 [...]
--- OUTSIDE RECORDS SUMMARY | 2022-10-04 17:53 | XMS_ITS | Continuity of Care Document ---
Author Name Unknown Organization [facility] [place] [facility] lt Address [address] [place] [address]- Care Team Providers Care Polishing Wheel Repairer Name Role Phone Tal WILKINS, Brown Paz Primary Care Physician Encounter [facility] Date(s): 09/21/21 - 10/21/21 [facility] [place] Adult [address] [place] [address]- Allergies, Adverse Reactions, Alerts Substance Reaction Severity [...] Reason: Med Not Available 2Result Comment: [05/15/2018] 22170-558-77 3Result Comment: [id number] 4Result Comment: [id number] Medications acetaminophen 325 mg oral tablet 650 [...] Gm, 11 Refills, Maintenance, 07/08/20 16:47:00 EST, [place], [facility], 1 sprays [...] Details, Route to Pharmacy Electronically, [facility], 190, cm, 07/27/21 12:49... Start Date: 07/30/21 Status: Ordered hydrOXYzine hydrochloride 25 mg oral tablet 1 tablet, By Mouth, 3 times a day, BUBBLE PACK, # 84 tablet, 5 Refills, Maintenance, 07/30/21 9:02:00 EST, [facility], 190, cm, 07/27/21 12:49:00 EST, [...] 0 Refills, Maintenance, 07/21/21 11:47:00 EST, Solution, [facility], Partial [...] COMMUNICATE SUGARS WITH PCP TO TITRATE LANTUS. [phone], 08/28... Start Date: 08/28/21 Status: Ordered One [...] 168 capsule, 5 Refills, 09/15/21 5:56:00 EDT, [facility], 191, cm, 08/28/21 11:32:00 EDT, Height, 168.5, kg, 08/18/21 22:23:00 EDT... Start Date: 09/15/21 Status: Ordered prazosin 5 mg oral capsule 5 mg, 1, capsule, By Mouth, Daily at bedtime, BUBBLE PACK, # 28 capsule, Refills 4, Tot. Refills 4,Maintenance, 04/02/21 8:22:00 EDT, Route to Pharmacy Electronically, [facility], 190, cm, 01/23/21 8:35:00 EDT, Height, 153, kg, 01/14/21... 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
--- OUTSIDE RECORDS SUMMARY | 2022-10-04 17:53 | XMS_ITS | Continuity of Care Document ---
Author Name Unknown Organization [facility] Address [address] [place] [address]- Care Team Providers Care Pulverizer Tender Name Role Phone Matheus Yo MD Primary Care Physician Encounter [facility] Date(s): 09/10/19 - 09/17/19 [facility] Adult [address] [place] [address]- [facility] Encounter Diagnosis Respiratory distress(Discharge Diagnosis) - 09/10/19 Attending Physician: Matheus Yo MD Allergies, Adverse [...] kyle tetanus/diphtheria/pertussis, acel(Tdap) 05/07/09 Given 1Result Comment: [id number] 2Result Comment: [id number] 3Result Comment: [05/15/2018] 97878-975-92 Medications atorvastatin 20 mg oral tablet 1 tablet = 20 mg, By Mouth, Daily, # 90 tablet, 3 Refills, Soft Stop, 03/14/19 13:58:57 EDT Start Date: 03/14/19 Status: Ordered clopidogrel 75 mg oral tablet 75 mg, 1, tablet, By Mouth, Daily, # 30 tablet, Refills 5, Tot. Refills 5, Maintenance, 01/29/19 17:13:14 EDT, Route to Pharmacy Electronically, [id number], [facility] Start Date: [...] Gm, 0 Refills, Maintenance, 05/23/18 10:06:41 EST, [place], 1 sprays Nares, Both 2 times a [...] Maintenance, 07/18/2014:03:00 EST, Route to Pharmacy Electronically, [id number], 191, cm, 07/18/19 14:17:00 EST, Height, 193.5, [...] 08/06/19 14:53:00 EST, Route to Pharmacy Electronically, [facility], 191, cm, 07/23/19 14:30:00 EST, [...] TAKE 1 TABLET BY MOUTH EVERY MORNING, [facility] #[id number] Start Date: 01/02/19 Status: Ordered LORazepam 2 mg oral tablet 1 tablet = 2 mg, By Mouth, 3 times a day, PRN for anxiety, # 90 tablet, 2 Refills, Maintenance, 07/18/19 15:00:00 EST, Tablet, [facility], 191, cm, 07/18/19 14:17:00 EST, [...] EST, Route to Pharmacy Electronically, [facility], 191, cm, 07/18/19 14:17:00 EST, [...] Maintenance, 08/06/19 13:46:00 EST, Tablet, [facility], 191, cm, 07/23/19 14:30:00 EST, [...] Maintenance, 07/18/19 15:00:00 EST, Tablet, [facility], 191, cm, 07/18/19 14:17:00 EST, Height, 193.5, kg, 05/21/19 5:38:00EST, Dry Weight Start Date: 07/18/19 Status: Ordered spironolactone 25 mg oral tablet 25 mg, 1, tablet, By Mouth, Daily, # 90 tablet, Refills 3, Tot. 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
--- OUTSIDE RECORDS SUMMARY | 2022-10-04 17:53 | XMS_ITS | Continuity of Care Document ---
Author Name Unknown Organization [facility] Address [address] [place] [address]- Care Team Providers Care Allergy Nurse Name Role Phone Sanaz WILKINS, Matheus Castro Primary Care Physician [phone] Encounter [facility] Date(s): 01/28/21 - 02/27/21 [facility] Adult [address] [place] [address]- Allergies, Adverse Reactions, Alerts Substance Reaction Severity [...] kyle tetanus/diphtheria/pertussis, acel(Tdap) 05/07/09 Given 1Result Comment: [id number] 2Result Comment: [id number] 3Result Comment: [05/15/2018] 32515-409-21 Medications acetaminophen 325 mg oral tablet 650 mg, By Mouth, Every 4 hours, PRN, Refills 0, Maintenance, Pain , Mild, 12/12/19 13:05:00 EDT Start Date: 12/12/19 Status: Ordered apixaban 5 mg oral tablet 1 tablet = 5 mg, By Mouth, 2 times a day, # 60 tablet, 3 Refills, Maintenance, 01/13/21 15:09:00 EDT, Tablet, [facility], Partial fill upon patient request [...] Maintenance, 01/13/21 15:09:00 EDT, CR Capsule, [facility], Partial fill upon patient request if the prescription is for a schedule II opioid drug., 190, cm, 01/13/21 7:49:00... Start Date: 01/13/21 Stop Date: 03/14/21 Status: Ordered colchicine 0.6 mg oral tablet 0.6 mg, 1, tablet, By Mouth, 2 times a day, # 60 tablet, Refills 1, Tot. Refills 1, Maintenance, 01/13/21 15:09:00 EDT, Route to Pharmacy Electronically, [facility], Partial fill upon patient request [...] 15:09:00 EDT, Route to Pharmacy Electronically, [facility], Partial fill upon patient request [...] 11:37:00 EDT, Route to Pharmacy Electronically, [facility], Partial fill upon patient request if the prescription is for a errol... Start Date: 01/18/21 Status: Ordered Flonase 50 mcg/inh nasal spray 1 sprays, Nares, Both, 2 times a day, # 16 Gm, 11 Refills, Maintenance, 07/08/20 16:47:00 EST, [place], [facility], 1 sprays [...] Refills 0, Tot. Refills 0, Maintenance, dx: setxdmM19. 40, oxygen dependence Z99.81, 01/27/21 11:50:00 EDT, [...] 11:37:00 EDT, Route to Pharmacy Electronically, [facility], Partial fill upon patient request if [...] Refills, Soft Stop, 01/13/21 15:30:00 EDT, [facility], 190, cm, 01/13/21 7:49:00 EDT, [...] Refills, Maintenance, 01/13/21 15:10:00 EDT, Tablet, [facility], Partial fill upon patient request [...]
--- OUTSIDE RECORDS SUMMARY | 2022-10-04 17:53 | XMS_ITS | Continuity of Care Document ---
Author Name Unknown Organization [facility] [place] lt Address [address] [place] [address]- Care Team Providers Care Apron Cleaner Name Role Phone Tal WILKINS, Brown Paz Primary Care Physician [phone] Encounter [facility] Date(s): 05/11/22 - 06/17/22 [facility] [place] Adult [address] [place] [address]- Attending Physician: Not on Staff, Attending MD [...] Reason: Med Not Available 2Result Comment: [05/15/2018] [id number] 3Result Comment: [id number] 4Result Comment: [id number] Medications albuterol CFC free 90 mcg/inh inhalation [...] Gm, 11 Refills, Maintenance, 07/08/20 16:47:00 EST, [place], [facility], 1 sprays [...] 04/02/22 5:55:00 EDT, Route to Pharmacy Electronically, [facility], 191, cm, 02/11/22 11:45:00 EDT, Height, 170, kg, 02/05/22 22:35:00 EDT, . Start Date: 04/02/22 Status: Ordered hydrOXYzine hydrochloride 25 mg oral tablet 1 tablet, By Mouth, 3 times a day, # 84 tablet, 5 Refills, Maintenance, 06/11/22 11:15:00 EST, [facility], 191, cm, 02/11/22 11:45:00 EDT, [...] COMMUNICATE SUGARS WITH PCP TO TITRATE LANTUS. [phone], 08/28... Start Date: 08/28/21 Status: Ordered One [...] II opioid drug., 190, cm, 07/27/21 12:49:00 ESTMaureen... 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 prescription benzodiazepine use Confirmed Active Limited mobility Confirmed Active Severe obesity Confirmed Active Non-insulin dependent type 2 diabetes mellitus Confirmed Active Social History Social History Type Response Smoking Status Never entered on: 05/15/18 Sex Patient Care team information Care Team Personnel Name: Gladis Carrizales RN Position: [facility] RN Member Role: Primary Care Nurse Name: Ebony Santoyo RN Position: [facility] RN Member Role: Primary Care Nurse Name: Siobhan Ko RN Position: [facility] RN Member Role: Primary Care Nurse Name: Evette Marrero Position: [facility] RN Supv Member Role: Primary Care Nurse Name: Aviva Howard RN Position: [facility] RN Member Role: Primary Care Nurse Name: Hilda Doyle RN Position: [facility] RN Supv Member Role: Primary Care Nurse Name: Kimmy Ahumada NP Position: [facility] Associate Professional Member Role: Primary Care Nurse Address: Address: [address] [place] [id number] Name: Bruce Mccurdy MD Position: [facility] Renal MD Member Role: Lifetime Consulting Physician Address: Address: [address] [place] [address], [address] [facility] [address] Name: Cristo lEias RN Position: [facility] RN Member Role: Primary Care Nurse Name: Malika Richards RN Position: [facility] Licensed Club Manager Member Role: Primary Care Nurse Name: JO GONZALEZ RN Position: [facility] RN Member Role: Primary Care Nurse Name: Shelby Luna RN Position: [facility] RN Member Role: Primary Care Nurse Name: Sarina Camejo RN Position: [facility] RN Member Role: Primary Care Nurse Name: Lachelle Shine RN Position: [facility] RN Member Role: Primary Care Nurse Name: Leilani Lerma RN Position: [facility] Wound Member Role: Primary Care Nurse Name: Sandrita Portillo LPN Position: [facility] RN Member Role: Primary Care Nurse Name: Corina Munoz RN Position: [facility] RN Member Role: Primary Care Nurse Name: Vaina Hernandez Position: [facility] RN Member Role: Primary Care Nurse Name: Mukul Dougherty RN Position: [facility] RN Member Role: Primary Care Nurse Name: Hammad Gambino RN Position: [facility] RN Member Role: Primary Care Nurse Name: Kenia Rao RN Position: [facility] RN Member Role: Primary Care Nurse Name: Michele Villavicencio RN Position: [facility] ED RN W/OE and Tasks Member Role: Primary Care Nurse Name: Brown Parada MD Position: [facility] Primary Care Physician Member Role: PCP Address: Address: [address] [place] [address]- [place] Name: Charlette Lopez RN Position: [facility] RN Member Role: Primary Care Nurse Name: Elena Sheikh RN Position: [facility] RN Member Role: Primary Care Nurse Name: Theodora Serna RN Position: [facility] PCO RN Member Role: Primary Care Nurse Name: Yang Silva RN Position: [facility] RN Member Role: Primary Care Nurse Name: Xiomara Mario RN Position: [facility] RN Member Role: Primary Care Nurse Name: Meg Norman RN Position: [facility] RN Member Role: Primary Care Nurse Name: Latanya Garza RN Position: [facility] RN Member Role: Primary Care Nurse Name: Jaimie Gibson RN Position: [facility] RN Member Role: Primary Care Nurse Name: Carmen Bruner RN Position: [facility] RN Member Role: Primary Care Nurse Name: Kirill Mccartney RN Position: [facility] RN Member Role: Primary Care Nurse Name: Chacha Hassan RN Position: [facility] RN Member Role: Primary Care Nurse Name: Earlene Grayson RN Position: [facility] SN RN Member Role: Primary Care Nurse Name: Cem Carroll MD Position: [facility] Renal MD Member Role: Lifetime Consulting Physician Address: Address: [address] [place] [address] [facility] [address]- [place] Name: Eusebia Hassan RN Position: [facility] RN Member Role: Primary Care Nurse Care Team Related Persons Name: JIMENEZ BRUNER Address: [address] [place] [address] Name: LIZA ANYA Address: home [address] [place] [address]
--- OUTSIDE RECORDS SUMMARY | 2022-10-04 17:53 | XMS_ITS | Continuity of Care Document ---
Author Name Unknown Organization [facility] Aung lt Address [address] [place] [address]- Care Team Providers Care Shield Operator Name Role Phone Tal WILKINS, Brown Paz Primary Care Physician [facility]): 06[facility]22 - 07/29/22 [facility] Adult [address] [place] [address]- Allergies, Adverse Reactions, Alerts Substance Reaction Severity [...] Reason: Med Not Available 2Result Comment: [05/15/2018] 78988-715-92 3Result Comment: [id number] 4Result Comment: [id number] Medications albuterol CFC free 90 mcg/inh inhalation [...] Gm, 11 Refills, Maintenance, 07/08/20 16:47:00 EST, [place], [facility], 1 sprays [...] 04/02/22 5:55:00 EDT, Route to Pharmacy Electronically, [facility], 191, cm, 02/11/22 11:45:00 EDT, Height, 170, kg, 02/05/22 22:35:00 EDT, . Start Date: 04/02/22 Status: Ordered hydrOXYzine hydrochloride 25 mg oral tablet 1 tablet, By Mouth, 3 times a day, # 84 tablet, 5 Refills, Maintenance, 06/11/22 11:15:00 EST, [facility], 191, cm, 02/11/22 11:45:00 EDT, [...] COMMUNICATE SUGARS WITH PCP TO TITRATE LANTUS. [phone], 08/28... Start Date: 08/28/21 Status: Ordered One [...] capsule, 2 Refills, Maintenance, 05/17/22 11:00:00 EST, [facility], 191, cm, 02/11/22 11:45:00 EDT, [...] tablet, 5 Refills, Maintenance, 07/08/22 10:43:00 EST, [facility], 191, cm, 02/11/22 11:45:00 EDT, Height, 170, kg, 02/05/22 22:35:00 EDT, Dry Weight Start Date: 07/08/22 Status: Ordered Vitamin D3 2000 intl units oral tablet 1 tablet, By Mouth, Daily, # 28 tablet, 4 Refills, [facility], 191, cm, 08/28/21 11:32:00 EDT, [...] Personnel Name: All BOSS Gladis Loyolamagdaleno Position: [facility] RN Member Role: Primary Care Nurse Name: Ebony Santoyo RN Position: [facility] RN Member Role: Primary Care Nurse Name: Siobhan Ko RN Position: [facility] RN Member Role: Primary Care Nurse Name: Evette Marrero Position: [facility] RN Supv Member Role: Primary Care Nurse Name: Aviva Howard RN Position: [facility] RN Member Role: Primary Care Nurse Name: Hilda Doyle RN Position: [facility] RN Supv Member Role: Primary Care Nurse Name: Kimmy Ahumada NP Position: [facility] Associate Professional Member Role: Primary Care Nurse Address: Address: [address] [place] [address] Name: Bruce Mccurdy MD Position: [facility] Renal MD Member Role: Lifetime Consulting Physician Address: Address: [address] [place] [address], [address] [facility] [place], [place] [address] Name: Malika Richards RN Position: [facility] Hardwood Floor Layer Member Role: Primary Care Nurse Name: JO GONZALEZ RN Position: [facility] RN Member Role: Primary Care Nurse Name: Shelby Luna RN Position: [facility] RN Member Role: Primary Care Nurse Name: Sarina Camejo RN Position: [facility] RN Member Role: Primary Care Nurse Name: Lachelle Shine RN Position: [facility] RN Member Role: Primary Care Nurse Name: Leilani Lerma RN Position: [facility] HBO Wound Member Role: Primary Care Nurse Name: Sandrita Portillo LPN Position: [facility] RN Member Role: Primary Care Nurse Name: Corina Munoz RN Position: [facility] RN Member Role: Primary Care Nurse Name: Vania Hernandez Position: [facility] RN Member Role: Primary Care Nurse Name: Mukul Dougherty RN Position: [facility] RN Member Role: Primary Care Nurse Name: Hammad Gambino RN Position: [facility] RN Member Role: Primary Care Nurse Name: Kenia Rao RN Position: [facility] RN Member Role: Primary Care Nurse Name: Michele Villavicencio RN Position: [facility] RN Member Role: Primary Care Nurse Name: Brown Parada MD Position: [facility] Primary Care Physician Member Role: PCP Address: Address: [address] [place] [address]- [place] Name: Charlette Lopez RN Position: [facility] RN Member Role: Primary Care Nurse Name: Elena Sheikh RN Position: [facility] RN Member Role: Primary Care Nurse Name: Theodora Serna RN Position: [facility] PCO RN Member Role: Primary Care Nurse Name: Yang Silva RN Position: [facility] RN Member Role: Primary Care Nurse Name: Xiomara Mario RN Position: [facility] RN Member Role: Primary Care Nurse Name: Meg Norman RN Position: [facility] RN Member Role: Primary Care Nurse Name: Latanya Garza RN Position: [facility] RN Member Role: Primary Care Nurse Name: Jaimie Gibson RN Position: [facility] RN Member Role: Primary Care Nurse Name: Carmen Bruner RN Position: [facility] RN Member Role: Primary Care Nurse Name: Kirill Mccartney RN Position: [facility] RN Member Role: Primary Care Nurse Name: Chacha Hassan RN Position: [facility] RN Member Role: Primary Care Nurse Name: Earlene Grayson RN Position: [facility] SN RN Member Role: Primary Care Nurse Name: Cem Carroll MD Position: [facility] Renal MD Member Role: Lifetime Consulting Physician Address: Address: [address] [place] [address] [facility] [place] [address]- [place] Name: Eusebia Hassan RN Position: [facility] RN Member Role: Primary Care Nurse Care Team Related Persons Name: JIMENEZ BRUNER Address: home [address] [place] [address] Name: ANYA DE JESUS Address: [address] [place] [address]
--- OUTSIDE RECORDS SUMMARY | 2022-10-04 17:53 | XMS_ITS | Continuity of Care Document ---
Author Name Unknown Organization [facility] Aung Address [address] [place] [address]- Care Team Providers Care Clinical Documentation Clerk Name Role Phone Tal WILKINS, Brown Paz Primary Care Physician [facility] Date[facility]s): 04/05/22 - 05/05/22 [facility] Adult [address] [place] [address]- Allergies, Adverse Reactions, Alerts Substance Reaction Severity Status clindamycin Hives Active penicillin rash Active Contrast Dye urticaria Active Latex anaphylaxis Active antivenin (black spider) Active Bee Stings Active Immunizations Given and [...] Reason: Med Not Available 2Result Comment: [05/15/2018] 97955-038-51 3Result Comment: [id number] 4Result Comment: [id number] Medications apixaban 5 mg oral tablet 1 [...] Gm, 11 Refills, Maintenance, 07/08/20 16:47:00 EST, [place], [facility], 1 sprays [...] 04/02/22 5:55:00 EDT, Route to Pharmacy Electronically, [facility], 191, cm, 02/11/22 11:45:00 EDT, Height, 170, kg, 02/05/22 22:35:00 EDT, . Start Date: 04/02/22 Status: Ordered hydrOXYzine hydrochloride 25 mg oral tablet 1 tablet, By Mouth, 3 times a day, # 84 tablet, 5 Refills, [facility], 191, cm, 12/10/21 10:57:00 EDT, [...] 0 Refills, Maintenance, 07/21/21 11:47:00 EST, [place], [facility], Partial fill upon patient [...] COMMUNICATE SUGARS WITH PCP TO TITRATE LANTUS. [phone], 08/28... 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 use Confirmed Active Limited mobility Confirmed Active Severe obesity Confirmed Active Non-insulin dependent type 2 diabetes mellitus Confirmed Active Social History Social History Type Response Smoking Status Never entered on: 05/15/18 Sex Patient Care team information Care Team Personnel Name: Gladis Carrizales RN Position: [facility] RN Member Role: Primary Care Nurse Name: Ebony Santoyo RN Position: [facility] RN Member Role: Primary Care Nurse Name: Siobhan Ko RN Position: [facility] RN Member Role: Primary Care Nurse Name: Evette Marrero Position: [facility] RN Supv Member Role: Primary Care Nurse Name: Aviva Howard RN Position: [facility] RN Member Role: Primary Care Nurse Name: Hilda Doyle RN Position: [facility] RN Member Role: Primary Care Nurse Name: Kimmy Ahumada NP Position: [facility] Associate Professional Member Role: Primary Care Nurse Address: Address: [address] [place] [address]- Name: Bruce Mccurdy MD Position: [facility] Renal MD Member Role: Lifetime Consulting Physician Address: Address: [address] [place] [address], [address] [facility] [place] [address]- Name: Cristo Elias RN Position: [facility] RN Member Role: Primary Care Nurse Name: Malika Richards RN Position: [facility] Hospital Planner Intern Member Role: Primary Care Nurse Name: JO GONZALEZ RN Position: [facility] RN Member Role: Primary Care Nurse Name: Shelby Luna RN Position: [facility] RN Member Role: Primary Care Nurse Name: Sarina Camejo RN Position: [facility] RN Member Role: Primary Care Nurse Name: Lachelle Shine RN Position: [facility] RN Member Role: Primary Care Nurse Name: Leilani Lerma RN Position: [facility] HBO Wound Member Role: Primary Care Nurse Name: Sandrita Portillo LPN Position: [facility] RN Member Role: Primary Care Nurse Name: Corina Munoz RN Position: [facility] RN Member Role: Primary Care Nurse Name: Vania Hernandez Position: [facility] RN Member Role: Primary Care Nurse Name: Mukul Dougherty RN Position: [facility] RN Member Role: Primary Care Nurse Name: Hammad Gambino RN Position: [facility] RN Member Role: Primary Care Nurse Name: Kenia Rao RN Position: [facility] RN Member Role: Primary Care Nurse Name: Michele Villavicencio RN Position: [facility] RN Member Role: Primary Care Nurse Name: Brown Parada MD Position: [facility] Primary Care Physician Member Role: PCP Address: Address: [address] [place] [address]- [place] Name: Charlette Lopez RN Position: [facility] RN Member Role: Primary Care Nurse Name: Elena Sheikh RN Position: [facility] RN Member Role: Primary Care Nurse Name: Theodora Serna RN Position: [facility] KRISTYO RN Member Role: Primary Care Nurse Name: Yang Silva RN Position: [facility] RN Member Role: Primary Care Nurse Name: Xiomara Mario RN Position: [facility] RN Member Role: Primary Care Nurse Name: Meg Norman RN Position: [facility] RN Member Role: Primary Care Nurse Name: Latanya Garza RN Position: [facility] RN Member Role: Primary Care Nurse Name: Jaimie Gibson RN Position: [facility] RN Member Role: Primary Care Nurse Name: Carmen Bartholomew RN Position: [facility] RN Member Role: Primary Care Nurse Name: Kirill Mccartney RN Position: S RN Member Role: Primary Care Nurse Name: Chacha Hassan RN Position: S RN Member Role: Primary Care Nurse Name: Earlene Grayson RN Position: [facility] SN RN Member Role: Primary Care Nurse Name: Cem Carroll MD Position: [facility] Renal MD Member Role: Lifetime Consulting Physician Address: Address: [address] [place] [address] [facility] [address] Name: Eusebia Hassan RN Position: [facility] RN Member Role: Primary Care Nurse Care Team Related Persons Name: FRANCJIMENEZ Address: [address] [place] [address] Name: ANYA DE JESUS Address: [address] [place] [address]
--- OUTSIDE RECORDS SUMMARY | 2022-10-04 17:53 | XMS_ITS | Continuity of Care Document ---
Author Name Unknown Organization [facility] Aung Address [address] [place] [address]- Care Team Providers Care Operational Assistant Name Role Phone Sanaz WILKINS, Matheus Castro Primary Care Physician [phone] [facility] 02/19/20 - 03/20/20 [facility] Adult [address] [place] [address]- [facility] Allergies, Adverse Reactions, Alerts Substance [...] kyle tetanus/diphtheria/pertussis, acel(Tdap) 05/07/09 Given 1Result Comment: [id number] 2Result Comment: [id number] 3Result Comment: [05/15/2018] [id number] Medications acetaminophen 325 mg oral tablet 650 [...] 10/25/19 8:57:00 EDT, Route to Pharmacy Electronically, [facility], 191, cm, 07/23/19 14:30:00EST, Height, 193.5, kg, 05/21/19 5:38:00 EST, Dry Weight Start Date: 10/25/19 Stop Date: 04/22/20 Status: Ordered cyanocobalamin 1000 mcg oral tablet, extended release 1 tablet = 1,000 mcg, By Mouth, Daily, # 30 tablet, 11 Refills, Maintenance, 02/21/20 10:38:00 EDT,[facility], 191, cm, 12/27/19 12:20:00 EDT, [...] EDT, Route to Pharmacy Electronically, [facility], 191, cm, 07/23/2013:30:00 EST, Height, 193.5, kg, 05/21/19 5:38:00 EST,... Start Date: 12/12/19 Status: Ordered Flonase 50 mcg/inh nasal spray 1 sprays, Nares, Both, 2 times a day, # 16 Gm, 0 Refills, Maintenance, 05/23/18 10:06:41 EST, [place], 1 sprays Nares, Both 2 times a day Start Date: 05/23/18 Status: Ordered gabapentin 300 mg oral capsule 300 mg, 1, capsule, By Mouth, Daily, APPOINTMENT 02/26/20, # 10 capsule, Refills 0, Tot. Refills 0, Maintenance, 02/22/20 13:44:00 EDT, Route to Pharmacy Electronically, [facility], 191, cm, 12/27/19 12:20:00 EDT, [...] EDT, Route to Pharmacy Electronically, [facility], 191, cm, 12/27/19 12:20:00 EDT, [...] Start Date: 08/06/19 Status: Ordered nystatin topical [id number] u/gm powder See Instructions, Topically 2 times [...] Maintenance,07/19/19 15:02:00 EST, Route to Pharmacy Electronically, [facility], 191, cm, 07/18/19 14:17:00 EST, Height, 193.5, kg, 05/21/19 5:38:00 E... Start Date: 07/19/19 Status: Ordered QUEtiapine 50 mg oral tablet 1 tablet = 50 mg, By Mouth, Daily, # 30 tablet, 5 Refills, Maintenance, 12/12/19 10:07:00 EDT, Tablet, [facility], 191, cm, 07/23/19 14:30:00 EST, Height, 193.5, kg, 05/21/19 5:38:00EST, Dry Weight Start Date: 12/12/19 Status: Ordered spironolactone 25 mg oral tablet 25 mg, 1, tablet, By Mouth, Daily, # 30 tablet, Refills 5, Tot. Refills 5, Maintenance, 02/19/20 9:52:00 EDT, Route to Pharmacy Electronically, [facility], 191, cm, 12/27/19 12:20:00EDT, Height, 193.5, kg, 05/21/19 5:38:00 EST, Dry Weight Start Date: 02/19/20 Status: Ordered traZODone 50 mg oral tablet 100 mg, 2, tablet, By Mouth, Daily at bedtime, # 60 tablet, Refills 5, Tot. Refills 5, Maintenance,02/01/20 10:29:00 EDT, Route to Pharmacy Electronically, [facility], 191, cm, [...]
--- OUTSIDE RECORDS SUMMARY | 2022-10-04 17:53 | XMS_ITS | Continuity of Care Document ---
Author Name Unknown Organization [facility] Aung Address [address] [place] [address]- Care Team Providers Care Vascular Physician Name Role Phone Tal WILKINS, Brown Paz Primary Care Physician Encounter [facility] Date(s): 08/18/22 - 09/17/22 [facility] Adult [address] [place] [address]- Allergies, Adverse Reactions, Alerts Substance Reaction Severity [...] Reason: Med Not Available 2Result Comment: [05/15/2018] 54004-590-01 3Result Comment: [id number] 4Result Comment: [id number] Medications albuterol CFC free 90 mcg/inh inhalation [...] Gm, 11 Refills, Maintenance, 07/08/20 16:47:00 EST, [place], [facility], 1 sprays [...] tablet, 1 Refills, Maintenance, 03/09/22 9:51:00 EDT, [facility], 191, cm, 02/11/22 11:45:00 EDT, Height, 170, kg, 02/05/22 22:35:00 EDT, Dry Weight Start Date: 03/09/22 Status: Ordered LORazepam 2 mg oral tablet 1 tablet = 2 mg, By Mouth, 3 times a day, PRN for anxiety, # 90 tablet, 2 Refills, Maintenance, 06/11/21 16:39:00 EST, Tablet, [facility], 190, cm, 04/03/21 10:25:00 EDT, Height, 153, kg, 01/14/21 23:22:00 EDT, Dry Weight Start Date: 06/11/21 Status: Ordered metFORMIN 1000 mg oral tablet 1 tablet = 1,000 mg, By Mouth, Daily, # 90 tablet, 1 Refills, Maintenance, 03/15/22 18:36:00 EDT, [facility], 191, cm, 02/11/22 11:45:00 EDT, Height, 170, kg, 02/05/22 22:35:00 EDT, Dry Weight Start Date: 03/15/22 Status: Ordered Metoprolol Succinate ER 50 mg oral tablet, extended release 1 tablet, By Mouth, Daily, # 90 tablet, 1 Refills, Maintenance, 07/23/22 4:11:00 EST, [facility], 191, cm, 02/11/22 11:45:00 EDT, Height, 170, kg, 02/05/22 22:35:00 EDT, Dry Weight Start Date: 07/23/22 Status: Ordered Narcan 4 mg/0.1 mL nasal spray = 4 mg, Naris, Left, Once, PRN overdose, # 2 each, 0 Refills, Soft Stop, 09/24/21 18:09:00 EDT, [facility], Partial fill upon patient request [...] capsule, 2 Refills, Maintenance, 05/17/22 11:00:00 EST, [facility], 191, cm, 02/11/22 11:45:00 EDT, [...] Refills, Maintenance, 07/08/22 10:43:00 EST, [facility], 191, cm, 02/11/22 11:45:00 EDT, [...] Active jail prescription benzodiazepine use Confirmed Active PTSD - Post-traumatic stress disorder Confirmed Active Limited mobility Confirmed Active Severe obesity Confirmed Active Non-insulin dependent type 2 diabetes mellitus Confirmed Active Social History Social History Type Response Smoking Status Never entered on: 05/15/18 Sex Patient Care team information Care Team Personnel Name: Tiki Kim RN Position: [facility] RN Member Role: Primary Care Nurse Name: Gladis Carrizales RN Position: [facility] RN Member Role: Primary Care Nurse Name: Ebony Santoyo RN Position: [facility] RN Member Role: Primary Care Nurse Name: Siobhan Ko RN Position: [facility] RN Member Role: Primary Care Nurse Name: Evette Marrero Position: [facility] RN Supv Member Role: Primary Care Nurse Name: Claude Zhao RN Position: [facility] RN Member Role: Primary Care Nurse Name: Aviva Howard RN Position: [facility] RN Member Role: Primary Care Nurse Name: Hilda Doyle RN Position: [facility] RN Supv Member Role: Primary Care Nurse Name: Kimmy Ahumada NP Position: [facility] Associate Professional Member Role: Primary Care Nurse Address: Address: [address] [place] [phone]- [place] Name: Bruce Mccurdy MD Position: [facility] Renal MD Member Role: Lifetime Consulting Physician Address: Address: [address] [place] [address], [address] [facility] [place] [address]- Name: Regis Huang RN Position: [facility] RN Member Role: Primary Care Nurse Name: Miguelina Hallman RN Position: [facility] RN Member Role: Primary Care Nurse Name: Mirella Mabry RN Position: [facility] RN Member Role: Primary Care Nurse Name: Shelby Luna RN Position: [facility] RN Member Role: Primary Care Nurse Name: Sarina Camejo RN Position: [facility] RN Member Role: Primary Care Nurse Name: Lachelle Shine RN Position: [facility] RN Member Role: Primary Care Nurse Name: Leilani Lerma RN Position: [facility] HBO Wound Member Role: Primary Care Nurse Name: Sandrita Portillo LPN Position: [facility] RN Member Role: Primary Care Nurse Name: Corina Munoz RN Position: [facility] RN Member Role: Primary Care Nurse Name: Vania Hernandez Position: [facility] RN Member Role: Primary Care Nurse Name: Mukul Dougherty RN Position: [facility] RN Member Role: Primary Care Nurse Name: Hammad Gambino RN Position: [facility] RN Member Role: Primary Care Nurse Name: Kenia Rao RN Position: [facility] RN Member Role: Primary Care Nurse Name: Michele Villavicencio RN Position: [facility] RN Member Role: Primary Care Nurse Name: Brown Parada MD Position: [facility] Primary Care Physician Member Role: PCP Address: Address: [address] [place] [id number]- [place] Name: Lionel Gu RN Position: [facility] RN Member Role: Primary Care Nurse Name: Emanuel Levin RN Position: [facility] RN Member Role: Primary Care Nurse Name: Charlette Lopez RN Position: [facility] RN Member Role: Primary Care Nurse Name: Melissa Khanna RN Position: [facility] RN Member Role: Primary Care Nurse Name: Elena Sheikh RN Position: [facility] RN Member Role: Primary Care Nurse Name: Theodora Serna RN Position: [facility] PCO RN Member Role: Primary Care Nurse Name: Yang Silva RN Position: [facility] RN Member Role: Primary Care Nurse Name: Xiomara Mario RN Position: [facility] RN Member Role: Primary Care Nurse Name: Suly Morales RN Position: [facility] RN Member Role: Primary Care Nurse Name: Jazmin Quach RN Position: [facility] RN Member Role: Primary Care Nurse Name: Meg Norman RN Position: [facility] RN Member Role: Primary Care Nurse Name: Latanya Garza RN Position: [facility] RN Member Role: Primary Care Nurse Name: Jaimie Gibson RN Position: [facility] RN Member Role: Primary Care Nurse Name: Buffy Schroeder RN Position: [facility] RN Member Role: Primary Care Nurse Name: Lidia Bacon RN Position: [facility] RN Member Role: Primary Care Nurse Name: Carmen Bruner RN Position: [facility] RN Member Role: Primary Care Nurse Name: Kirill Mccartney RN Position: [facility] RN Member Role: Primary Care Nurse Name: Chacha Hassan RN Position: [facility] RN Member Role: Primary Care Nurse Name: Earlene Grayson RN Position: [facility] SN RN Member Role: Primary Care Nurse Name: Cem Carroll MD Position: [facility] Renal MD Member Role: Lifetime Consulting Physician Address: Address: [address] [place] [address] [facility] [address] Name: Dmitry Chua RN Position: [facility] RN Member Role: Primary Care Nurse Name: Aretha Duke RN Position: [facility] RN Member Role: Primary Care Nurse Name: Shilpa Richardson RN Position: [facility] RN Member Role: Primary Care Nurse Name: Eusebia Hassan RN Position: [facility] RN Member Role: Primary Care Nurse Name: Arsalan Cai RN Position: [facility] RN Member Role: Primary Care Nurse Care Team Related Persons Name: JIMENEZ BRUNER Address: home [address] [place] [address] Name: LIZA ANYA Address: home [address] [place] [id number]
--- OUTSIDE RECORDS SUMMARY | 2022-10-04 17:53 | XMS_ITS | Continuity of Care Document ---
Author Name Unknown Organization [facility] Whitethorn Aung Address [address] [place] [address]- Care Team Providers Care Pet Sitter Name Role Phone Matheus Yo MD Primary Care Physician [place] [facility] [place] 07[place]20 [facility] Adult [address] [place] [address]- Encounter Diagnosis Acute bronchitis(Discharge Diagnosis) - 06/24/20 Upper respiratory infection(Discharge Diagnosis) - 06/24/20 Wound of left ankle(Discharge Diagnosis) - 06/24/20 Attending Physician: Matheus Yo MD Allergies, Adverse [...] kyle tetanus/diphtheria/pertussis, acel(Tdap) 05/07/09 Given 1Result Comment: [id number] 2Result Comment: [id number] 3Result Comment: [05/15/2018] [id number] Medications acetaminophen 325 mg oral tablet 650 mg, By Mouth, Every 4 hours, PRN, Refills 0, Maintenance, Pain , Mild, 12/12/19 13:05:00 EDT Start Date: 12/12/19 Status: Ordered albuterol CFC free 90 mcg/inh inhalation aerosol 2, puffs, Inhalation, Every 4 hours, PRN, # 18 Gm, Refills 5, Tot. Refills 5, Maintenance, 06/24/2115:37:00 EST, Aerosol, Route to Pharmacy Electronically, [id number], [facility], 191, cm, 06/24/20 13:40:00 EST,... [...] 05/07/20 10:14:00 EST, Route to Pharmacy Electronically, [facility], 191, cm, 12/27/19 12:20:00 EDT, [...] EDT, Route to Pharmacy Electronically, [facility], 191, cm, 07/23/2013:30:00 EST, Height, 193.5, kg, 05/21/19 5:38:00 EST,... Start Date: 12/12/19 Status: Ordered Flonase 50 mcg/inh nasal spray 1 sprays, Nares, Both, 2 times a day, # 16 Gm, 0 Refills, Maintenance, 05/23/18 10:06:41 EST, [place], 1 sprays Nares, Both 2 times a day Start Date: 05/23/18 Status: Ordered gabapentin 300 mg oral capsule 300 mg, 1, capsule, By Mouth, 3 times a day, # 90 capsule, Refills 11, Tot. Refills 11, Maintenance, 04/28/20 13:15:00 EST, Route to Pharmacy Electronically, [facility], 191, cm, 12/27/19 12:20:00 EDT, [...] EDT, Route to Pharmacy Electronically, [facility], 191, cm, 12/27/2011:20:00 EDT, Height, 193.5, kg, 05/21/19 5:38:00 EST,... Start Date: 03/31/20 Status: Ordered lisinopril 40 mg oral tablet 1 tablet = 40 mg, By Mouth, Daily, APPOINTMENT 02/26/20, # 10 tablet, 0 Refills, Maintenance, 02/22/20 13:44:00 EDT, Tablet, [facility], 191, cm, 12/27/19 12:20:00 EDT, [...] Start Date: 05/07/20 Status: Ordered nystatin topical [id number] u/gm powder See Instructions, Topically 2 times a day, # 60 Gm, 5 Refills, Maintenance, 02/19/20 15:59:00 EDT, Powder, [facility], Topically 2 times a day, 191, cm, 12/27/19 12:20:00 EDT, Height, 193.5, kg, 05/21/19 5:38:00 EST, Dry Weight Start Date: 02/19/20 Status: Ordered phenytoin 100 mg oral capsule, extended release See Instructions, 2 capsules (200mg) in AM 4 capsules (400mg) in PM, # 180 capsule, 3 Refills, Maintenance, 02/21/20 10:49:00 EDT, [facility], changed to 100mg due to being out of 200, 191, cm, 12/27/19 12:20:00 EDT, Height, 193.5, kg, 1... Start Date: 02/21/20 Status: Ordered prazosin 5 mg oral capsule 5 mg, 1, capsule, By Mouth, Daily at bedtime, # 30 capsule, Refills 5, Tot. Refills 5, Maintenance,07/19/19 15:02:00 EST, Route to Pharmacy Electronically, [facility], 191, cm, 07/18/19 14:17:00 EST, [...] 02/19/20 9:52:00 EDT, Route to Pharmacy Electronically, [facility], 191, cm, 12/27/19 12:20:00EDT, Height, 193.5, kg, 05/21/19 5:38:00 EST, Dry Weight Start Date: 02/19/20 Status: Ordered traZODone 50 mg oral tablet 100 mg, 2, tablet, By Mouth, Daily at bedtime, # 60 tablet, Refills 5, Tot. 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
--- OUTSIDE RECORDS SUMMARY | 2022-10-04 17:53 | XMS_ITS | Continuity of Care Document ---
Author Name Unknown Organization [facility] Address [address] [place] [address]- Care Team Providers Care Organ Tuner Name Role Phone Tal WILKINS, Brown Paz Primary Care Physician [place] [facility] [place] 06/09/22 - 07/09/22 [facility] [address] [place] [address]- Attending Physician: Raji Shoemaker Admitting Physician: AdmRaji [...] Reason: Med Not Available 2Result Comment: [05/15/2018] 40831-592-94 3Result Comment: [id number] 4Result Comment: [id number] Medications albuterol CFC free 90 mcg/inh inhalation [...] Gm, 11 Refills, Maintenance, 07/08/20 16:47:00 EST, [place], [facility], 1 sprays [...] 04/02/22 5:55:00 EDT, Route to Pharmacy Electronically, [facility], 191, cm, 02/11/22 11:45:00 EDT, Height, 170, kg, 02/05/22 22:35:00 EDT, . Start Date: 04/02/22 Status: Ordered hydrOXYzine hydrochloride 25 mg oral tablet 1 tablet, By Mouth, 3 times a day, # 84 tablet, 5 Refills, Maintenance, 06/11/22 11:15:00 EST, [facility], 191, cm, 02/11/22 11:45:00 EDT, [...] Refills, Maintenance, 03/04/22 18:59:00 EDT, [facility], 191, cm, 02/11/22 11:45:00 EDT, [...] COMMUNICATE SUGARS WITH PCP TO TITRATE LANTUS. [phone], 08/28... 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 [address] Name: Malika Richards RN Position: [facility] Knife Setter Member Role: Primary Care Nurse Name: JO [...] Care Nurse Name: Leilani Lerma RN Position: [facility] HBO Wound Member Role: Primary [...] Physician Member Role: PCP Address: Address: [address] [place] [address]- [place] Name: Charlette Lopez RN Position: [facility] [...] Care Nurse Name: Carmen Bartholomew RN Position: [facility] RN Member [...] Member Role: Lifetime Consulting Physician Address: Address: [address] [place] [address] [facility] [place] [address]- [place] Name: Eusebia Hassan RN Position: [facility] RN Member Role: Primary Care Nurse Care Team Related Persons Name: FRANC JIMENEZ Address: [address] [place] [address] Name: ANYA DE JESUS Address: [address] [place] [address]
--- OUTSIDE RECORDS SUMMARY | 2022-10-04 17:53 | XMS_ITS | Continuity of Care Document ---
Author Name Unknown Organization [facility] Eddie Aung lt Address [address] [place] [address]- Care Team Providers Care Supplier Quality Name Role Phone Tal WILKINS, Brown Paz Primary Care Physician En[place] [facility] [place] 07[place]01/22 - 08/05/22 [facility] Adult [address] [place] [address]- Attending Physician: Not on Staff, Attending MD [...] Reason: Med Not Available 2Result Comment: [05/15/2018] 80953-487-49 3Result Comment: [id number] 4Result Comment: [id number] Medications albuterol CFC free 90 mcg/inh inhalation [...] Gm, 11 Refills, Maintenance, 07/08/20 16:47:00 EST, [place], [facility], 1 sprays [...] 04/02/22 5:55:00 EDT, Route to Pharmacy Electronically, [facility], 191, cm, 02/11/22 11:45:00 EDT, Height, 170, kg, 02/05/22 22:35:00 EDT, . Start Date: 04/02/22 Status: Ordered hydrOXYzine hydrochloride 25 mg oral tablet 1 tablet, By Mouth, 3 times a day, # 84 tablet, 5 Refills, Maintenance, 06/11/22 11:15:00 EST, [facility], 191, cm, 02/11/22 11:45:00 EDT, [...] COMMUNICATE SUGARS WITH PCP TO TITRATE LANTUS. [phone], 08/28... Start Date: 08/28/21 Status: Ordered One [...] capsule, 2 Refills, Maintenance, 05/17/22 11:00:00 EST, [email or web address], 191, cm, 02/11/22 11:45:00 EDT, [...] 60 tablet, 5 Refills, Maintenance, 07/08/22 10:43:00 [place], [email or web address], 191, cm, 02/11/22 11:45:00 EDT, Height, 170, kg, 02/05/22 22:35:00 EDT, Dry Weight Start Date: 07/08/22 Status: Ordered Vitamin D3 2000 intl units oral tablet 1 tablet, By Mouth, Daily, # 28 tablet, 4 Refills, [email or web address], 191, cm, 08/28/21 11:32:00 EDT, [...] Painful peripheral neuropathy - NOS Confirmed Active 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 Active Limited mobility Confirmed Active Severe obesity Confirmed Active Non-insulin dependent type 2 diabetes mellitus Confirmed Active Social History Social History Type Response Smoking Status Never entered on: 05/15/18 Sex Patient Care team information Care Team Personnel Name: Gladis Carrizales RN Position: [facility] RN Member Role: Primary Care Nurse Name: Ebony Santoyo RN Position: [facility] RN Member Role: Primary Care Nurse Name: Siobhan Ko RN Position: S RN Member Role: Primary Care Nurse Name: Evette Marrero Position: [facility] RN Supv Member Role: Primary Care Nurse Name: Aviva Howard RN Position: [facility] RN Member Role: Primary Care Nurse Name: Hilda Doyle RN Position: [facility] RN Supv Member Role: Primary Care Nurse Name: Kimmy Ahumada NP Position: [facility] Associate Professional Member Role: Primary Care Nurse Address: Address: [address] [place] [id number] Name: Bruce Mccurdy MD Position: [facility] Renal MD Member Role: Lifetime Consulting Physician Address: Address: [address] [place] [address], [address] [facility] [place], [place] [address] Name: JO GONZALEZ RN Position: [facility] RN Member Role: Primary Care Nurse Name: Shelby Luna RN Position: [facility] RN Member Role: Primary Care Nurse Name: Sarina Camejo RN Position: [facility] RN Member Role: Primary Care Nurse Name: Lachelle Shine RN Position: [facility] RN Member Role: Primary Care Nurse Name: Leilani Lerma RN Position: [facility] HBO Wound Member Role: Primary Care Nurse Name: Sandrita Portillo LPN Position: [facility] RN Member Role: Primary Care Nurse Name: Corina Munoz RN Position: [facility] RN Member Role: Primary Care Nurse Name: Vania Hernandez Position: [facility] RN Member Role: Primary Care Nurse Name: Mukul Dougherty RN Position: [facility] RN Member Role: Primary Care Nurse Name: Hammad Gambino RN Position: [facility] RN Member Role: Primary Care Nurse Name: Kenia Rao RN Position: [facility] RN Member Role: Primary Care Nurse Name: Michele Villavicencio RN Position: [facility] RN Member Role: Primary Care Nurse Name: Brown Parada MD Position: [facility] Primary Care Physician Member Role: PCP Address: Address: [address] [place] [address]- [place] Name: Charlette Lopez RN Position: [facility] RN Member Role: Primary Care Nurse Name: Elena Sheikh RN Position: [facility] RN Member Role: Primary Care Nurse Name: Theodora Serna RN Position: [facility] PCO RN Member Role: Primary Care Nurse Name: Yang Silva RN Position: [facility] RN Member Role: Primary Care Nurse Name: Xiomara Mario RN Position: [facility] RN Member Role: Primary Care Nurse Name: Meg Norman RN Position: [facility] RN Member Role: Primary Care Nurse Name: Latanya Garza RN Position: [facility] RN Member Role: Primary Care Nurse Name: Jaimie Gibson RN Position: [facility] RN Member Role: Primary Care Nurse Name: Carmen Bruner RN Position: [facility] RN Member Role: Primary Care Nurse Name: Kirill Mccartney RN Position: [facility] RN Member Role: Primary Care Nurse Name: Chacha Hassan RN Position: [facility] RN Member Role: Primary Care Nurse Name: Earlene Grayson RN Position: [facility] SN RN Member Role: Primary Care Nurse Name: Cem Carroll MD Position: [facility] Renal MD Member Role: Lifetime Consulting Physician Address: Address: [address] [place] [address] [facility] [place] [address]- [place] Name: Eusebia Hassan RN Position: [facility] RN Member Role: Primary Care Nurse Care Team Related Persons Name: JIMENEZ BRUNER Address: [address] [place] [address] Name: LIZAANYA Address: [address] [place] [address]
--- OUTSIDE RECORDS SUMMARY | 2022-10-04 17:53 | XMS_ITS | Continuity of Care Document ---
Author Name Unknown Organization [facility] Eddie Aung lt Address [address] [place] [address]- Care Team Providers Care Chorus Master Name Role Phone Tal WILKINS, Brown Paz Primary Care Physician [place] [facility] [place] 05/14/22 - 06/13/22 [facility] Adult [address] [place] [address]- Allergies, Adverse Reactions, Alerts Substance Reaction Severity [...] Reason: Med Not Available 2Result Comment: [05/15/2018] [id number] 3Result Comment: [id number] 4Result Comment: [id number] Medications albuterol CFC free 90 mcg/inh inhalation [...] Gm, 11 Refills, Maintenance, 07/08/20 16:47:00 EST, [place], [facility], 1 sprays [...] 04/02/22 5:55:00 EDT, Route to Pharmacy Electronically, [facility], 191, cm, 02/11/22 11:45:00 EDT, Height, 170, kg, 02/05/22 22:35:00 EDT, . Start Date: 04/02/22 Status: Ordered hydrOXYzine hydrochloride 25 mg oral tablet 1 tablet, By Mouth, 3 times a day, # 84 tablet, 5 Refills, Maintenance, 06/11/22 11:15:00 EST, [facility], 191, cm, 02/11/22 11:45:00 [...] Refills, Maintenance, 03/09/22 9:51:00 EDT, [facility], 191, cm, 02/11/22 11:45:00 EDT, [...] Refills, Maintenance, 03/15/22 18:36:00 EDT, [facility], 191, cm, 02/11/22 11:45:00 EDT, [...] COMMUNICATE SUGARS WITH PCP TO TITRATE LANTUS. [phone], 08/28... Start Date: 08/28/21 Status: Ordered One [...] Team Personnel Name: Gladis Carrizales RN Position: [facility] RN Member Role: Primary Care Nurse Name: Ebony Santoyo RN Position: [facility] RN Member Role: Primary Care Nurse Name: Siobhan Ko RN Position: [facility] RN Member Role: Primary Care Nurse Name: Evette Marrero Position: [facility] RN Supv Member Role: Primary Care Nurse Name: Aviva Howard RN Position: [facility] RN Member Role: Primary Care Nurse Name: Hilda Doyle RN Position: [facility] RN Supv Member Role: Primary Care Nurse Name: Kimmy Ahumada NP Position: [facility] Associate Professional Member Role: Primary Care Nurse Address: Address: [address] [place] [address]- Name: Bruce Mccurdy MD Position: [facility] Renal MD Member Role: Lifetime Consulting Physician Address: Address: [address] [place] [address], [address] [facility] [place] [address]- Name: Cristo Elias RN Position: [facility] RN Member Role: Primary Care Nurse Name: Malika Richards RN Position: [facility] Kst Operator Member Role: Primary Care Nurse Name: JO GONZALEZ RN Position: [facility] RN Member Role: Primary Care Nurse Name: Shelby Luna RN Position: [facility] RN Member Role: Primary Care Nurse Name: Sraina Camejo RN Position: [facility] RN Member Role: Primary Care Nurse Name: Lachelle Shine RN Position: [facility] RN Member Role: Primary Care Nurse Name: Leilani Lerma RN Position: [facility] HBO Wound Member Role: Primary Care Nurse Name: Sandrita Portillo LPN Position: [facility] RN Member Role: Primary Care Nurse Name: Corina Munoz RN Position: [facility] RN Member Role: Primary Care Nurse Name: Vania Hernandez Position: [facility] RN Member Role: Primary Care Nurse Name: Mukul Dougherty RN Position: [facility] RN Member Role: Primary Care Nurse Name: Hammad Gambino RN Position: [facility] RN Member Role: Primary Care Nurse Name: Kenia Rao RN Position: [facility] RN Member Role: Primary Care Nurse Name: Michele Villavicencio RN Position: [facility] RN Member Role: Primary Care Nurse Name: Brown Parada MD Position: [facility] Primary Care Physician Member Role: PCP Address: Address: [address] [place] [address]- [place] Name: Charlette Lopez RN Position: [facility] RN Member Role: Primary Care Nurse Name: Elena Sheikh RN Position: [facility] RN Member Role: Primary Care Nurse Name: Thedoora Serna RN Position: [facility] PCO RN Member Role: Primary Care Nurse Name: Yang Silva RN Position: [facility] RN Member Role: Primary Care Nurse Name: Xoimara Mario RN Position: [facility] RN Member Role: Primary Care Nurse Name: Meg Norman RN Position: [facility] RN Member Role: Primary Care Nurse Name: Latanya Garza RN Position: [facility] RN Member Role: Primary Care Nurse Name: Jaimie Gibson RN Position: [facility] RN Member Role: Primary Care Nurse Name: Carmen Bruner RN Position: [facility] RN Member Role: Primary Care Nurse Name: Kirill Mccartney RN Position: [facility] RN Member Role: Primary Care Nurse Name: Chacha Hassan RN Position: [facility] RN Member Role: Primary Care Nurse Name: Earlene Grayson RN Position: [facility] SN RN Member Role: Primary Care Nurse Name: Cem Carroll MD Position: [facility] Renal MD Member Role: Lifetime Consulting Physician Address: Address: [address] [place] [address] [facility] [place] [address]- [place] Name: Eusebia Hassan RN Position: [facility] RN Member Role: Primary Care Nurse Care Team Related Persons Name: JIMENEZ BRUNER Address: [address] [place] [address] Name: KADEN DE JESUSA Address: [address] [place] [address]
--- OUTSIDE RECORDS SUMMARY | 2022-10-04 17:53 | XMS_ITS | Continuity of Care Document ---
Author Name Unknown Organization [facility] ter Address [address] [place] [id number]- Care Team Providers Care Retail Planning Manager Name Role Phone Tal WILKINS, Brown Paz Primary Care Physician [phone] Encounter [facility] Date(s): 05/15/22 - 05/17/[address] [address]- Encounter Diagnosis Altered mental status(Final) - 05/15/22 Discharge Disposition: A-D/C Home Attending Physician: Rigo Diehl MD Admitting Physician: Konrad Khan MD Referring Physician: Not on Staff, Referring [...] Reason: Med Not Available 2Result Comment: [05/15/2018] [id number] 3Result Comment: [id number] 4Result Comment: [id number] Medications albuterol CFC free 90 mcg/inh inhalation aerosol 180 mcg, 2, puffs, Inhalation, Every 4 hours, PRN, Refills 0, Maintenance, 05/17/22 11:07:00 EST, Inhaler Start Date: 05/17/22 Status: Ordered apixaban 5 mg oral tablet [...] release 360 mg, CD Capsule, By Mouth, 05/17/22 9:00:00 EST Start Date: 05/17/22 Stop Date: 05/17/22 Status: Completed Cardizem CD 360 mg/24 hours [...] opioid drug. Start Date: 02/05/22 Status: Ordered DeltAccelera Mobile Broadband Cozmo Glucometer See Instructions, # 1 each, [...] Gm, 11 Refills, Maintenance, 07/08/20 16:47:00 EST, Jack, [facility], 1 sprays [...] EDT, . Start Date: 04/02/22 Status: Ordered gabapentin 400 mg oral capsule 400 mg, Capsule, By Mouth, 05/17/22 9:00:00 EST Start Date: 05/17/22 Stop Date: 05/17/22 Status: Completed gabapentin 400 mg oral capsule 400 mg, Capsule, By Mouth, 05/17/22 12:00:00 EST Start Date: 05/17/22 Stop Date: 05/17/22 Status: Completed Imdur 60 mg oral tablet, extended release [...] Refills, Maintenance, 03/09/22 9:51:00 EDT, [facility], 191, cm, 02/11/22 11:45:00 EDT, Height, 170, kg, 02/05/22 22:35:00 EDT, Dry Weight Start Date: 03/09/22 Status: Ordered LORazepam 2 mg oral tablet 1 tablet = 2 mg, By Mouth, 3 times a day, PRN for anxiety, # 90 tablet, 2 Refills, Maintenance, 06/11/21 16:39:00 EST, Tablet, [facility], 190, cm, 04/03/21 10:25:00 EDT, Height, 153, kg, 01/14/21 23:22:00 EDT, Dry Weight Start Date: 06/11/21 Status: Ordered metFORMIN 1000 mg oral tablet 1 tablet = 1,000 mg, By Mouth, Daily, # 90 tablet, 1 Refills, Maintenance, 03/15/22 18:36:00 EDT, [facility], 191, cm, 02/11/22 11:45:00 EDT, Height, 170, kg, 02/05/22 22:35:00 EDT, Dry Weight Start Date: 03/15/22 Status: Ordered Metoprolol XL Tablet 75 mg, XL Tablet, By Mouth, 05/17/22 12:00:00 EST Start Date: 05/17/22 Stop Date: 05/17/22 Status: Completed Metoprolol Succinate ER 50 mg [...] COMMUNICATE SUGARS WITH PCP TO TITRATE LANTUS. [phone], 08/28... 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 HAND SPECIAL REQUESTS : NONE CULTURE : NO GROWTH AFTER 48 HOURS REPORT STATUS : PRELIMINARY REPORT TEST:Blood Culture STATUS:Unauthenticated BODY SITE: SOURCE:Blood COLLECTED DATE/TIME:05/15/22 2:05 PM Blood Culture SPECIMEN DESCRIPTION : BLOOD LAC SPECIAL REQUESTS : NONE CULTURE : NO GROWTH AFTER 48 HOURS REPORT STATUS : PRELIMINARY REPORT Radiology Reports * Exam Date Time Procedure Performing Provider Status 05/16/22 12:50 AM Shoulder Min 2 Views Left Horn , Anya nifer; Auth (Verified) Notes: (Shoulder Min 2 Views Left) Reason For Exam: Pain RESULT: Shoulder Min 2 Views Left Shoulder Min 2 Views Left, 3 views Reason: Pain; Clinical Question(s): Fracture COMPARISON: 12/24/2016 FINDINGS: No fracture or dislocation. Mild degenerative changes with mild osteophyte formation. No significant joint space narrowing. Moderate acromioclavicular degenerative changes with joint space narrowing and endplate sclerosis. No calcification of the rotator cuff. IMPRESSION: No specific evidence of acute fracture or malalignment. Moderate acromioclavicular degenerative changes and mild glenohumeral degenerative changes. WSN: [id number] Ordering Physician: Tonia Yu Dictated By: Bethany Painter MD Dictated Date/Time: 05/16/22 9:19 am Reviewed By: Bethany Painter MD Signed By: Bethany Painter MD Signed Date/Time: 05/16/22 9:19 am Transcribed By: LEATHA Transcribed Date/Time: 05/16/22 9:16 am * Exam Date Time Procedure Performing Provider Status 05/15/22 2:[address] Cervical Spine W/O Contrast Shante Centeno; Auth (Verified) Notes: (CT Cervical Spine W/O Contrast) Reason For Exam: Neck trauma, dangerous injury mechanism;Other: RESULT: CT Cervical Spine W/O Contrast CT Head/Brain W/O Contrast, CT Cervical Spine W/O Contrast INDICATION: Hx of Present Illness: see level one sheet; Reason: Dementia; Clinical Question(s): Hematoma TECHNIQUE: Noncontrast head CT using axial technique was reconstructed in axial and coronal planes.Noncontrast spiral CT through the cervical spine was formatted in 3 planes. Automatic tube modulation was used for the cervical spine and iterative dose reconstruction was used for both the head and cervical spine to optimize scan parameters and image quality. CTDIvol Body: 36.80 mGy, DLP Body: 967 mGy*cm. CTDIvol Head: 45.80 mGy, DLP Head: 966 mGy*cm. COMPARISON: 07/09/2021 FINDINGS: Integrated Circuit Design Engineer View Findings, Lines and Tubes: None. BRAIN AND EXTRA-AXIAL SPACES: Chronic encephalomalacia within the left parietal lobe. Chronic left cerebellar encephalomalacia. Small area of encephalomalacia within the right occipital lobe. No intracranial hemorrhage. Moderate prominence of the ventricles and sulci consistent with parenchymal volume loss. Mild low-density white matter changes. No subarachnoid hemorrhage. No subdural or epidural collection. CALVARIUM, SKULL BASE, AND SOFT TISSUES: No fractures or suspicious bony lesions. The paranasal sinuses and mastoid air cells are clear. Visualized orbits and globes are intact. The extracranial soft tissues are unremarkable. CERVICAL SPINE: Evaluation is somewhat limited by motion artifact. No fracture. No acute osseous abnormalities. Normal alignment. No locked or perched facet. Intervertebral disc spaces and vertebral body heightsare preserved. OTHER BONES: No acute abnormality. CERVICAL SOFT TISSUES AND LUNG APICES: Multiple small cervical chain lymph nodes, chronic. Visualized lung apices are clear. IMPRESSION: Somewhat limited evaluation of the cervical spine due to patient motion artifact. No traumatic malalignment or discrete fractures identified. No acute intracranial abnormality. 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 WSN: [id number] Ordering Physician: Cecil Escobedo MD Dictated By: Oziel Mcrae MD Dictated Date/Time: 05/15/22 3:00 pm Reviewed By: Oziel Mcrae MD Signed By: Oziel Mcrae MD Signed Date/Time: 05/15/22 3:00 pm Transcribed By: LEATHA Transcribed Date/Time: 05/15/22 2:54 pm * Exam Date Time Procedure Performing Provider Status 05/15/22 2:[address] Head/Brain W/O Contrast Jeffery Centeno; Auth (Verified) Notes: (CT Head/Brain W/O Contrast) Reason For Exam: Dementia RESULT: CT Head/Brain W/O Contrast CT Head/Brain W/O Contrast, CT Cervical Spine W/O Contrast INDICATION: Hx of Present Illness: see level one sheet; Reason: Dementia; Clinical Question(s): Hematoma TECHNIQUE: Noncontrast head CT using axial technique was reconstructed in axial and coronal planes.Noncontrast spiral CT through the cervical spine was formatted in 3 planes. Automatic tube modulation was used for the cervical spine and iterative dose reconstruction was used for both the head and cervical spine to optimize scan parameters and image quality. CTDIvol Body: 36.80 mGy, DLP Body: 967 mGy*cm. CTDIvol Head: 45.80 mGy, DLP Head: 966 mGy*cm. COMPARISON: 07/09/2021 FINDINGS: Integrated Circuit Design Engineer View Findings, Lines and Tubes: None. BRAIN AND EXTRA-AXIAL SPACES: Chronic encephalomalacia within the left parietal lobe. Chronic left cerebellar encephalomalacia. Small area of encephalomalacia within the right occipital lobe. No intracranial hemorrhage. Moderate prominence of the ventricles and sulci consistent with parenchymal volume loss. Mild low-density white matter changes. No subarachnoid hemorrhage. No subdural or epidural collection. CALVARIUM, SKULL BASE, AND SOFT TISSUES: No fractures or suspicious bony lesions. The paranasal sinuses and mastoid air cells are clear. Visualized orbits and globes are intact. The extracranial soft tissues are unremarkable. CERVICAL SPINE: Evaluation is somewhat limited by motion artifact. No fracture. No acute osseous abnormalities. Normal alignment. No locked or perched facet. Intervertebral disc spaces and vertebral body heightsare preserved. OTHER BONES: No acute abnormality. CERVICAL SOFT TISSUES AND LUNG APICES: Multiple small cervical chain lymph nodes, chronic. Visualized lung apices are clear. IMPRESSION: Somewhat limited evaluation of the cervical spine due to patient motion artifact. No traumatic malalignment or discrete fractures identified. No acute intracranial abnormality. 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 WSN: [id number] Ordering Physician: Cecil Escobedo MD Dictated By: Oziel Mcrae MD Dictated Date/Time: 05/15/22 3:00 pm Reviewed By: Oziel Mcrae MD Signed By: Oziel Mcrae MD Signed Date/Time: 05/15/22 3:00 pm Transcribed By: LEATHA Transcribed Date/Time: 05/15/22 2:54 pm * Exam Date Time Procedure Performing Provider Status 05/15/22 2:32 PM Chest Portable Liane Rose; Au th (Verified) Notes: (Chest Portable) Reason For Exam: Other: RESULT: Chest Portable AP portable chest, INDICATION: Hx of Present Illness: see level one sheet; Reason: Other:; Clinical Question(s): Pneumonia COMPARISON: 05/03/2022 FINDINGS: LINES AND TUBES: None LUNGS AND PLEURA AND MEDIASTINUM: No pneumothorax or pleural effusion. No focal infiltrate. Heart size is borderline enlarged. IMPRESSION: No acute abnormality. WSN: [id number] Ordering Physician: Cecil Escobedo MD Dictated By: Christina Lu MD Dictated Date/Time: 05/15/22 2:42 pm Reviewed By: Christina Lu MD Signed By: Christina Lu MD Signed Date/Time: 05/15/22 2:42 pm Transcribed By: LEATHA Transcribed Date/Time: 05/15/22 2:41 pm Vital Signs Most recent to oldest [Reference Range]: 1 2 3 Oxygen Saturation [94-100 %] 94 % (05/17/22 1:52 PM) 98 % (05/17/22 8:09 AM) 97 % (05/17/22 5:34 AM) Pulse Rate [55-90 bpm] 84 bpm (05/17/22 1:52 PM) 101 bpm *H* (05/17/22 8:12 AM) 102 bpm *H* (05/17/22 8:09 AM) Blood Pressure [90-138/55-84 mm Hg] 132/99mm Hg (05/17/22 1:52 PM) 115/77mm Hg (05/17/22 8:12 AM) 115/77mm Hg (05/17/22 8:09 AM) Respiratory Rate [16-30 br/min] 16 br/min (05/17/22 1:52 PM) 20 br/min (05/17/22 8:12 AM) 24 br/min (05/17/22 8:09 AM) Temperature [96.8-100.4 DegF] 97.9 DegF (05/17/22 8:09 AM) 97.8 DegF (05/16/22 7:49 AM) 98 DegF (05/16/22 6:33 AM) Liters per Minute 2 L/min (05/17/22 8:09 AM) 2 L/min (05/16/22 4:30 PM) 2 L/min (05/16/22 2:01 PM) Mode of Delivery (Oxygen) Room air (05/17/22 1:52 PM) Nasal cannula (05/17/22 8:09 AM) Nasal cannula (05/16/22 4:30 PM) Blood pressure sites Arm, right (05/16/22 2:01 PM) Arm, right (05/16/22 11:42 AM) Arm, right (05/16/22 10:07 AM) Temperature Route Oral (05/17/22 8:09 AM) Oral (05/16/22 7:49 AM) Oral (05/16/22 6:33 AM) Social History Social History Type Response Smoking Status Never entered on: 05/15/18 Sex Admission evaluation note * Tonia Yu MD: PERFORM, MODIFY Event Display: Admission Note Authored Date: [id number] Patient: ??LEON BRUNER ? Age:??61 Years?Sex:??Male?:??1960?? Chief Complaint/Reason for Consultation Altered mental status, found down on the floor History of Present Illness 61-year-old male patient who has past medical history of hypertension, hyperlipidemia, atrial fibrillation/DVT???on Eliquis, asthma, RADHA???noncompliant with CPAP, morbid obesity, heart failure with preserved ejection fraction who presented to the emergency room with altered mental status.?? Patientwas found on the floor.,?? On my examination, alert and oriented x3.?? Slow to answer questions answering most questions appropriately.?? Able to tell me some of his medications correctly.?? He livesat home by himself.?? He says that he was on his wheelchair and the next thing He remembers is waking up on the ground.?? He feels like he might have had a seizure.?? Reports compliance with his Iain tin.?? Patient reports left shoulder pain which is made worse on movement but otherwise denies any other pain or discomfort.?? Patient uses oxygen as needed at home.?? He wants to be full code.?? Of note, patient was admitted in February and at that time had cardiac cath which was a nonobstructivecardiac cath. ?? In the emergency room, noted to be afebrile, heart rate fluctuating between 88 and 92, appears irregular, EKG shows atrial fibrillation with right bundle branch block, maintaining saturation 96% on 2 L, blood pressure 107/77, respiratory 21, on review of labs, noted to have pH of 7.45 and PCO2 of 47 on VBG, white count of 9.8, hemoglobin 10.2 with microcytic hypochromic picture which appears baseline, platelets 381, sodium 134, potassium 5.4, chloride 93, bicarb 30, anion gap 11, glucose 28,creatinine 1.1, alk phos 133, lactate 2.6 which trended down to 2.2, otherwise LFTs unremarkable, troponin 58 followed by 52, proBNP 1861, TSH 1.53, Dilantin 10.3, influenza RSV and COVID-19 PCR negat cami, urinalysis not suggestive of active infection, CK 57, chest x-ray did not reveal any acute abnormality and CT head and C-spine also did not reveal any acute abnormality. Review of Systems General ROS:??negative for chills or fever, noted fatigue, no night sweats, no unexpained weight loss or weight gain Psychological ROS:negative for anxiety or depressive symptoms, no suicidal thoughts, appropriate insight into situation, mood appears appropriate for situation ENT ROS:??negative for nasal congestion, no sinus drainage, no nosebleeding, no sore throat, no dysphagia, no ear pain Hematological and Lymphatic ROS:??negative for bleeding problems, no history of blood clots, no recent increase in bruising, no noted swollen lymph nodes Endocrine ROS:??negative for polyuria/polydipsia?? Respiratory ROS:??negative for cough, no shortness of breath, no wheezing Cardiovascular ROS:??no chest pain, ??No dyspnea on exertion, ??No edema, no palpitations, no history of loss of consciousness, no orthopnea, no paroxysmal nocturnal dyspnea?? Gastrointestinal ROS:??negative for reflux, no abdominal pain, no black or bloody stools- also no history of constipation, diarrhea, heartburn or hematemesis Genito-Urinary ROS:??no dysuria, no trouble voiding, or hematuria Musculoskeletal ROS:??negative for worsening ongoing back pain, no worsening or chronic neck pain, positive for left shoulder pain,??no calf swelling Neurological ROS:??Positive for confusion???improving, no dizziness, no gait disturbance, no impaired coordination/balance, no memory loss, Positive for history of seizures, no history of speech problems, no tremors , no visual changes. ?? Objective ? Vital Signs?? Temperature: 99 DegF (05/15/22 14:09:00) Temperature Route: Rectal (05/15/22 14:09:00) Pulse Rate:??92 bpm??High (05/15/22 22:00:00) Respiratory Rate: 21 br/min (05/15/22 22:00:00) Systolic Blood Pressure: 107 mm Hg (05/15/22:00:00) Diastolic Blood Pressure: 77 mm Hg (05/15/22 22:00:00) Blood pressure sites: Arm, right (05/15/22:00:00) Mean Arterial Pressure: 89 mm Hg (05/15/22 14:09:00) Pulse Pressure: 30 mm Hg (05/15/22 22:00:00) Oxygen Saturation: 96 % (05/15/22 22:00:00) Liters per Minute: 2 L/min (12/10/22 22:00:00) Mode of Delivery (Oxygen): Nasal cannula (05/15/22 22:00:00) Early Warning Score: 3 (05/15/22 22:05:29) ? Pain Scores?? No qualifying data available. ? Intake/Output? No Data Available ? Physical Exam ?? General appearance- alert, cooperative, no distress, appears stated age, oriented to but not to exact date but not to month and year, place and person,??answering questions slowly but most of them appropriately Head- Normocephalic, without obvious abnormality, atraumatic Eyes-conjunctivae/corneas clear. PERRL, EOM's intact. Nose- Nares normal. Septum midline. Mucosa normal. No drainage or sinus tenderness. Throat-Lips, mucosa, and tongue normal. Neck- supple, symmetrical, trachea midline, no adenopathy, thyroid: not enlarged, symmetric, no tenderness/mass/nodules, no carotid bruit and no JVD Back- symmetric, no curvature. ROM normal. Lungs-??clear to auscultation bilaterally, no accessory muscle use, no accessory respiratory sounds Chest wall- no tenderness, no skin rash or lesions or bruising, no crepitance Heart-irregularly irregular heart rhythm, S1, S2 normal, no click, rub or gallop Abdomen-??soft, non-tender. Bowel sounds normal. No masses,?? No organomegaly Extremities- extremities normal, atraumatic, no cyanosis but does have??1+ bilateral pitting, warm and well perfused. Muscle tone is normal and equal bilaterally Pulses- 2+ and symmetric on dorsal pedal pulses, posterior tibial pulses, radial pulses Skin- Skin color, texture, turgor normal. ??Abrasions on bilateral knees Neurologic- Normal, nonfocal, no focal weakness, ? Assessment/Plan ?? 61-year-old male patient who has past medical history of hypertension, hyperlipidemia, atrial fibrillation/DVT???on Eliquis, asthma, RADHA???noncompliant with CPAP, morbid obesity, heart failure with preserved ejection fraction who presented to the emergency room with altered mental status ??and episode of unresponsiveness???suspect breakthrough seizure ?? Altered mental status Monitor mentation closely, patient thinks he might have had seizures Check ammonia, TSH unremarkable, CT head unremarkable Check urine drug screen Urinalysis and chest x-ray not suggestive of infection Patient's mentation seems to be improving, will continue to monitor Holding trazodone ?? History of seizure disorder Episode of unresponsiveness???suspect breakthrough seizure Continue gabapentin and??Dilantin at home dose Dilantin level 10.3 Neurology consultation??in the morning Seizure precautions Telemetry monitoring, trend troponin, check orthostatic vitals in the morning Patient does have echo from July ?? T2DM Hold Oral anti diabetics Start Insulin sliding scale medium dose with meals and bedtime Hypoglycemia precautions Monitor POC Glucose closely and titrate insulin regimen accordingly check hemoglobin A1c ?? Hyperlipidemia Lipitor 80 ?? RADHA Noncompliant with CPAP ?? Heart failure with preserved ejection fraction Patient does have 1+ bilateral pitting edema Continue home dose of Demadex ?? Atrial fibrillation Currently rate controlled Continue home dose of metoprolol and Cardizem Telemetry monitoring Continue Eliquis ?? Lactic acidosis Improving Continue to monitor ?? Hyperkalemia, mild Lokelma 10 g??x 1 ordered ?? GERD Continue PPI ?? Chronic prescription opiate dependence Continue home dose of??oxycodone ?? Left shoulder pain Range of motion restricted secondary to pain, checking left shoulder x-ray ?? Elevated troponin without chest pain EKG reviewed Repeat??third troponin Telemetry monitoring ?? Morbid obesity???outpatient follow-up ?? DVT prophylaxis???on Eliquis ?? CODE STATUS???full code ?? Diet???diabetic/cardiac ?? Tonia Yu MD [facility] Medicine Date-May 15, 2022, patient seen at 9 PM ?? IMPORTANT: This document was created by voice recognition software. A conscious effort has been made to improve accuracy of the pharmacy tech customer service. Any obvious errors or omissions should be clarified with the authorof this document. Histories Allergies Allergies ?(Active and Proposed Allergies Only) antivenin (black spider)? (Severity: Unknown severity, Onset: Unknown) Bee Stings? (Severity: Unknown severity, Onset: Unknown) Contrast Dye? (Severity: Unknown severity, Onset: Unknown) ?Reactions: urticaria clindamycin? (Severity: Unknown severity, Onset: Unknown) ?Reactions: Hives Latex? (Severity: Unknown severity, Onset: Unknown) ?Reactions: anaphylaxis penicillin? (Severity: Unknown severity, Onset: Unknown) ?Reactions: rash ? Past Medical History/Problem List Active Problems??(24) Acquired lymphedema of leg Chronic diarrhea Chronic widespread pain disorder Diabetes mellitus with neuropathy Epilepsy Heart failure with preserved left ventricular function (HFpEF) History of TIA (transient ischemic attack) Hyperglycemia Hyperlipidemia Hypertension Iron deficiency anemia Limited mobility skilled nursing prescription benzodiazepine use Long-term current use of anticonvulants ??(phenytoin and oxcarbazepine) Mood disorder NOS Morbid obesity with BMI of 50.0-59.9, adult Multiple complaints Non-insulin dependent type 2 diabetes mellitus Obstructive sleep apnea Painful peripheral neuropathy - NOS Paroxysmal A-fib Pericarditis Pulmonary hypertension Severe obesity ? Past Surgical History No surgery history documented. ? Social History Alcohol Details:??Use: Never. Employment/School Details:??Status: Disabled. Exercise Details:??Self assessment: Poor condition. ??Regular exercise: No. Home/Environment Details:??Living situation: Home/Independent. ??Lives with: Alone. Nutrition/Health Details:??Diet: Regular. ??Caffeine intake amount: None. ??Feels highly stressed: Yes. Substance Abuse Details:??Use: Never. Tobacco Details:??Smokeless tobacco use: Never. ? Psychosocial History ? Family History Mat. Grandmother: Diabetes mellitus ? Travel History Travel Outside [facility]: No ?? Medications Home Medications apixaban (apixaban 5 mg oral tablet)?1?tab(s)?5?Milligram?By Mouth?2 times a day?for 30?Days Atorvastatin (Lipitor 80 mg oral tablet)?1?tab(s)?80?Milligram?By Mouth?Daily Cholecalciferol (Vitamin D3 2000 intl units oral tablet)?1?tab(s)?By Mouth?Daily Cyanocobalamin (cyanocobalamin 1000 mcg oral tablet, extended release)?1?tab(s)?1,000?Microgram?By Mouth?Daily?BUBBLE PACK Diltiazem (Cardizem CD 360 mg/24 hours oral capsule, extended release)?1?capsule?360?Milligram?By Mouth?Daily Duloxetine (Cymbalta 30 mg oral enteric coated capsule)?1?capsule?30?Milligram?By Mouth?Daily Duloxetine (Cymbalta 30 mg oral enteric coated capsule)?2?capsule?60?Milligram?By Mouth?Daily at bedtime Durable Medical Equipment (eHi Car Rentalec Cozmo Glucometer)?See Instructions?check blood sugar levelsbefore meals every day 3 times a day and at bedtime. Durable Medical Equipment (Insulin Syringe, BD Ultra-Fine 0.3 cc 31 G x 8 mm (5/16in))?See Instructions?for 30?Days?use as directed for Type 2 Diabetes Mellitus Durable Medical Equipment (One Touch Fine Point Lancets)?See Instructions?for 30?Days?use as directed for Type 2 Diabetes Mellitus Durable Medical Equipment (Bariatric wheelchair with standard leg rests)?See Instructions?22 x 16 standard bariatric wheelchairwt 157.7ht 191 cmDx: G89.4, 189, E66.01, 127.20lon 99 MO Fluticasone Nasal (Flonase 50 mcg/inh nasal spray)?1?spray(s)?Nares, Both?2 times a day Gabapentin (gabapentin 400 mg oral capsule)?1?capsule?By Mouth?5 times a day?HOLD FOR SEDATION. HydrOXYzine (hydrOXYzine hydrochloride 25 mg oral tablet)?1?tab(s)?By Mouth?3 times a day Insulin Glargine (Lantus 100 u/ml subcutaneous solution)?20?unit(s)?Subcutaneous Injection?Daily at bedtime Isosorbide Mononitrate (Imdur 60 mg oral tablet, extended release)?60?Milligram?By Mouth?Daily in AM Ketoconazole (ketoconazole 2% topical cream)?1?veto?Topically?2 times a day?for 14?Days?Apply to affected skin as needed Loperamide (loperamide 2 mg oral tablet)?1?tab(s)?By Mouth?Every 4 hours?as needed? NEEDED FOR LOOSE STOOL Lorazepam (LORazepam 2 mg oral tablet)?1?tab(s)?2?Milligram?By Mouth?3 times a day?as needed?for anxiety Metformin (metFORMIN 1000 mg oral tablet)?1?tab(s)?1,000?Milligram?By Mouth?Daily Metoprolol (Metoprolol Succinate ER 50 mg oral tablet, extended release)?1?tab(s)?By Mouth?Daily Miscellaneous Rx (NURSING ORDERS)?See Instructions?LEFT ANKLE WOUND- CLEANSE NS, APPLY SILVADENE, DCD DAILY OR NURSING TO REC TX.DM II MONITORING AND COMMUNICATE SUGARS WITH PCP TO TITRATE LANTUS.[phone] Miscellaneous Rx (Freestyle Christin 14 day reader)?See Instructions?Freestyle Christin 14 day reader Miscellaneous Rx (Freestyle Christin 14 day sensor)?See Instructions?Freestyle Christin 14 day sensor nalOXONE (Narcan 4 mg/0.1 mL nasal spray)?4?Milligram?Naris, Left?Once?as needed?overdose Oxycodone (oxyCODONE 5 mg oral tablet)?5?Milligram?1?tablet?By Mouth?2 times a day?as needed?Dx: Chronic widespread pain syndrome; may fill for less than full amountAPPOINTMENT NEEDED FOR ADDITIONAL REFILLS?Pain , Severe Pantoprazole (pantoprazole 40 mg oral delayed release tablet)?1?tab(s)?By Mouth?Daily Phenytoin (phenytoin 100 mg oral capsule, extended release)?See Instructions?TAKE 2 CAPSULES BY MOUTH IN THE MORNING & TAKE 4 CAPSULES IN THE EVENING Quetiapine (SEROquel 100 mg oral tablet)?150?Milligram?1.5?tablet?By Mouth?Daily at bedtime Quetiapine (SEROquel 50 mg oral tablet)?1?tab(s)?50?Milligram?By Mouth?Daily at bedtime?as needed?Sleep torsemide (torsemide 20 mg oral tablet)?2?tab(s)?40?Milligram?By Mouth?Daily?for 30?Days Trazodone (traZODone 50 mg oral tablet)?100?Milligram?2?tablet?By Mouth?Daily at bedtime ? Results Recent Labs BLOOD COUNT & DIFF WBC 9.8 k/mm3 ()?? 05/15/2022 14:05 RBC 4.62 m/mm3 (Low)?? 05/15/2022 14:05 Hgb 10.0 Gm/dL (Low)?? 05/15/2022 14:05 Hct 35.8 % (Low)?? 05/15/2022 14:05 MCV 77.5 femtoliters (Low)?? 05/15/2022 14:05 MCH 21.6 pg (Low)?? 05/15/2022 14:05 MCHC 27.9 g/dL (Low)?? 05/15/2022 14:05 Platelet Count 381 k/mm3 ()?? 05/15/2022 14:05 RDW-SD 57.4 femtoliters (High)?? 05/15/2022 14:05 MPV 10.8 femtoliters ()?? 05/15/2022 14:05 Nucleated RBC (Automated) 0.0 #/100 WBC'S ()?? 05/15/2022 14:05 Abs. NRBC 0.0 k/mm3 ()?? 05/15/2022 14:05 Abs. Neut 7.8 k/mm3 (High)?? 05/15/2022 14:05 Abs. Lymph 1.3 k/mm3 ()?? 05/15/2022 14:05 Abs. [place] 0.6 k/mm3 ()?? 05/15/2022 14:05 Abs. Eo 0.1 k/mm3 ()?? 05/15/2022 14:05 Abs. Baso 0.0 k/mm3 ()?? 05/15/2022 14:05 Neut % 79.2 % (High)?? 05/15/2022 14:05 Lymph % 13.2 % (Low)?? 05/15/2022 14:05 [place] % 6.0 % ()?? 05/15/2022 14:05 Eos % 1.1 % ()?? 05/15/2022 14:05 Baso % 0.1 % ()?? 05/15/2022 14:05 Hemoglobin (POC) POC Cartridge 11.9 Gm/dL (Low)?? 05/15/2022 14:07 Hematocrit (POC) POC Cartridge 35 % (Low)?? 05/15/2022 14:07 Imm Gran 0.4 % ()?? 05/15/2022 14:05 Abs. Imm Gran 0.0 k/mm3 ()?? 05/15/2022 14:05 ?? BLOOD GAS pH Venous (POC) POC Cartridge 7.45 (High)?? 05/15/2022 14:07 pCO2 Venous (POC) POC Cartridge 47.2 mm Hg ()?? 05/15/2022 14:07 pO2 Venous (POC) POC Cartridge 25 mm Hg (Low)?? 05/15/2022 14:07 Est Bicarbonate (POC) POC Cartridge 33.0 mmol/L (High)?? 05/15/2022 14:07 % O2 Sat Venous (POC) POC Cartridge 48 ()?? 05/15/2022 14:07 Base Excess (POC) POC Cartridge 9 ()?? 05/15/2022 14:07 Specimen Type - Blood Gas VENOUS ()?? 05/15/2022 14:07 ?? CARDIAC CK, Total 57 units/L ()?? 05/15/2022 14:05 Nt-Probnp 1861 pg/mL (High)?? 05/15/2022 14:05 High Sensitivity Troponin (HSTnT) 52 ng/L (High)?? 05/15/2022 16:34 ?? CHEM GENERAL Sodium 134 mmol/L ()?? 05/15/2022 14:05 Potassium 5.4 mmol/L (High)?? 05/15/2022 14:05 Chloride 93 mmol/L (Low)?? 05/15/2022 14:05 Bicarbonate Level 30 mmol/L (High)?? 05/15/2022 14:05 Anion Gap 11 ()?? 05/15/2022 14:05 Sodium (POC) POC Cartridge 132 mmol/L (Low)?? 05/15/2022 14:07 Potassium (POC) POC Cartridge 5.3 mmol/L (High)?? 05/15/2022 14:07 Glucose Level 287 mg/dL (High)?? 05/15/2022 14:05 Glucose (POC) POC Cartridge 282 (High)?? 05/15/2022 14:07 Glucose, POC 305 mg/dL (High)?? 05/15/2022 13:53 BUN 21 mg/dL ()?? 05/15/2022 14:05 Creatinine-Blood 1.1 mg/dL ()?? 05/15/2022 14:05 Estimated GFR Creatinine 72 ML/MIN/1.73 M2 ()?? 05/15/2022 14:05 Calcium 8.7 mg/dL ()?? 05/15/2022 14:05 Ionized Calcium (POC) POC Cartridge 1.05 mmol/L (Low)?? 05/15/2022 14:07 Protein, Total 6.8 Gm/dL ()?? 05/15/2022 14:05 Albumin 4.0 Gm/dL ()?? 05/15/2022 14:05 AG Ratio 1.4 ()?? 05/15/2022 14:05 Alkaline Phosphatase 133 units/L (High)?? 05/15/2022 14:05 AST (SGOT) 10 units/L ()?? 05/15/2022 14:05 ALT (SGPT) 8 units/L ()?? 05/15/2022 14:05 Bilirubin, Total 0.2 mg/dL ()?? 05/15/2022 14:05 Lactate 2.2 mmol/L ()?? 05/15/2022 16:34 ?? ENDOCRINE/TUMOR MARKER TSH 1.53 uIU/mL ()?? 05/15/2022 14:05 ?? HEME OTHER Hold Lavender Top SPECIMEN DISCARDED AFTER 24 HOURS. ()?? 05/15/2022 16:34 Hold Blue Top SPECIMEN DISCARDED AFTER 4 HOURS. ()?? 05/15/2022 14:05 ?? MISC. CHEMISTRY Hold Green Top SPECIMEN DISCARDED AFTER 1 WEEK ()?? 05/15/2022 16:34 ?? TOXICOLOGY/TDM Dilantin Level 10.3 mg/L ()?? 05/15/2022 14:05 ?? UA/URINALYSIS Appear/Color, Urine LIGHT YELLOW ()?? 05/15/2022 15:10 Specific [place], Urine 1.014 ()?? 05/15/2022 15:10 pH, Urine 5.0 ()?? 05/15/2022 15:10 Albumin, Urine NEGATIVE ()?? 05/15/2022 15:10 Glucose, Urine 1+ (Abnormal)?? 05/15/2022 15:10 Ketones, Urine NEGATIVE ()?? 05/15/2022 15:10 Bilirubin, Urine NEGATIVE ()?? 05/15/2022 15:10 Hemoglobin, Urine NEGATIVE ()?? 05/15/2022 15:10 Nitrite, Urine NEGATIVE ()?? 05/15/2022 15:10 Leukocyte, Urine NEGATIVE ()?? 05/15/2022 15:10 Urobilinogen NORMAL mg/dL ()?? 05/15/2022 15:10 WBC's, Urine 1 /HPF ()?? 05/15/2022 15:10 RBC's, Urine 1 /HPF ()?? 05/15/2022 15:10 Squamous Epith 3 /HPF ()?? 05/15/2022 15:10 Mucus SLIGHT /LPF ()?? 05/15/2022 15:10 Hold Urine Culture Testing available 48 hours from time of collection. ()?? 05/15/2022 15:10 ?? VIROLOGY Influenza A PCR NEGATIVE ()?? 05/15/2022 14:15 Influenza B PCR NEGATIVE ()?? 05/15/2022 14:15 RSV PCR NEGATIVE ()?? 05/15/2022 14:15 COVID-19 PCR Specimen Source NASAL ()?? 05/15/2022 14:15 COVID-19 PCR Result NEGATIVE ()?? 05/15/2022 14:15 ? Abnormal Labs ?? BLOOD COUNT & DIFF ??Abs. Imm Gran ??0.0 k/mm3 () ??05/15/2022 14:05 ??Abs. NRBC ??0.0 k/mm3 () ??05/15/2022 14:05 ??Abs. Neut ??7.8 k/mm3 (High) ??05/15/2022 14:05 ??Hct ??35.8 % (Low) ??05/15/2022 14:05 ??Hematocrit (POC) POC Cartridge ??35 % (Low) ??05/15/2022 14:07 ??Hemoglobin (POC) POC Cartridge ??11.9 Gm/dL (Low) ??05/15/2022 14:07 ??Hgb ??10.0 Gm/dL (Low) ??05/15/2022 14:05 ??Imm Gran ??0.4 % () ??05/15/2022 14:05 ??Lymph % ??13.2 % (Low) ??05/15/2022 14:05 ??MCH ??21.6 pg (Low) ??05/15/2022 14:05 ??MCHC ??27.9 g/dL (Low) ??05/15/2022 14:05 ??MCV ??77.5 femtoliters (Low) ??05/15/2022 14:05 ??Neut % ??79.2 % (High) ??05/15/2022 14:05 ??Nucleated RBC (Automated) ??0.0 #/100 WBC'S () ??05/15/2022 14:05 ??RBC ??4.62 m/mm3 (Low) ??05/15/2022 14:05 ??RDW-SD ??57.4 femtoliters (High) ??05/15/2022 14:05 ? BLOOD GAS ??% O2 Sat Venous (POC) POC Cartridge ??48 () ??05/15/2022 14:07 ??Base Excess (POC) POC Cartridge ??9 () ??05/15/2022 14:07 ??Est Bicarbonate (POC) POC Cartridge ??33.0 mmol/L (High) ??05/15/2022 14:07 ??Specimen Type - Blood Gas ??VENOUS () ??05/15/2022 14:07 ??pH Venous (POC) POC Cartridge ??7.45 (High) ??05/15/2022 14:07 ??pO2 Venous (POC) POC Cartridge ??25 mm Hg (Low) ??05/15/2022 14:07 ? CARDIAC ??High Sensitivity Troponin (HSTnT) ??52 ng/L (High) ??05/15/2022 16:34 ??Nt-Probnp ??1861 pg/mL (High) ??05/15/2022 14:05 ? CHEM GENERAL ??AG Ratio ??1.4 () ??05/15/2022 14:05 ??Alkaline Phosphatase ??133 units/L (High) ??05/15/2022 14:05 ??Bicarbonate Level ??30 mmol/L (High) ??05/15/2022 14:05 ??Chloride ??93 mmol/L (Low) ??05/15/2022 14:05 ??Estimated GFR Creatinine ??72 ML/MIN/1.73 M2 () ??05/15/2022 14:05 ??Glucose (POC) POC Cartridge ??282 (High) ??05/15/2022 14:07 ??Glucose Level ??287 mg/dL (High) ??05/15/2022 14:05 ??Glucose, POC ??305 mg/dL (High) ??05/15/2022 13:53 ??Ionized Calcium (POC) POC Cartridge ??1.05 mmol/L (Low) ??05/15/2022 14:07 ??Potassium ??5.4 mmol/L (High) ??05/15/2022 14:05 ??Potassium (POC) POC Cartridge ??5.3 mmol/L (High) ??05/15/2022 14:07 ??Sodium (POC) POC Cartridge ??132 mmol/L (Low) ??05/15/2022 14:07 ? HEME OTHER ??Hold Blue Top ??SPECIMEN DISCARDED AFTER 4 HOURS. () ??05/15/2022 14:05 ??Hold Lavender Top ??SPECIMEN DISCARDED AFTER 24 HOURS. () ??05/15/2022 16:34 ? MISC. CHEMISTRY ??Hold Green Top ??SPECIMEN DISCARDED AFTER 1 WEEK () ??05/15/2022 16:34 ? UA/URINALYSIS ??Albumin, Urine ??NEGATIVE () ??05/15/2022 15:10 ??Appear/Color, Urine ??LIGHT YELLOW () ??05/15/2022 15:10 ??Bilirubin, Urine ??NEGATIVE () ??05/15/2022 15:10 ??Glucose, Urine ??1+ (Abnormal) ??05/15/2022 15:10 ??Hemoglobin, Urine ??NEGATIVE () ??05/15/2022 15:10 ??Hold Urine Culture ??Testing available 48 hours from time of collection. () ??05/15/2022 15:10 ??Ketones, Urine ??NEGATIVE () ??05/15/2022 15:10 ??Leukocyte, Urine ??NEGATIVE () ??05/15/2022 15:10 ??Mucus ??SLIGHT /LPF () ??05/15/2022 15:10 ??Nitrite, Urine ??NEGATIVE () ??05/15/2022 15:10 ??Urobilinogen ??NORMAL mg/dL () ??05/15/2022 15:10 ? VIROLOGY ??COVID-19 PCR Result ??NEGATIVE () ??05/15/2022 14:15 ??COVID-19 PCR Specimen Source ??NASAL () ??05/15/2022 14:15 ??Influenza A PCR ??NEGATIVE () ??05/15/2022 14:15 ??Influenza B PCR ??NEGATIVE () ??05/15/2022 14:15 ??RSV PCR ??NEGATIVE () ??05/15/2022 14:15 ? Note: Critical results are displayed in red. ? Blood Glucose Trend Glucose Level:??287 mg/dL??High (05/15/22 14:05:00) Glucose (POC) POC Cartridge:??282??High (05/15/22 14:07:00) Glucose, POC:??305 mg/dL??High (05/15/22 13:53:00) ? CBC, CBC w/Diff?? CBC?? Differential?? WBC: 9.8 k/mm3 (14:05) Abs. Neut:??7.8 k/mm3??High (14:05) RBC:??4.62 m/mm3??Low (14:05) Abs. Lymph: 1.3 k/mm3 (14:05) Hct:??35.8 %??Low (14:05) Abs. [place]: 0.6 k/mm3 (14:05) RDW-SD:??57.4 femtoliters??High (14:05) Abs. Eo: 0.1 k/mm3 (14:05) Nucleated RBC (Automated): 0 #/100 WBC'S (14:05) Abs. Baso: 0 k/mm3 (14:05) Abs. NRBC: 0 k/mm3 (14:05) Neut %:??79.2 %??High (14:05) ?? Lymph %:??13.2 %??Low (14:05) ?? [place] %: 6 % (14:05) ?? Eos %: 1.1 % (14:05) ?? Baso %: 0.1 % (14:05) ?? Hemoglobin (POC) POC Cartridge:??11.9 Gm/dL??Low (14:07) ?? Hematocrit (POC) POC Cartridge:??35 %??Low (14:07) ?? Imm Gran: 0.4 % (14:05) ?? Abs. Imm Gran: 0 k/mm3 (14:05) ? BMP, Mg, and Phos Anion Gap: 11 (14:05) Bicarbonate Level:??30 mmol/L??High (14:05) BUN: 21 mg/dL (14:05) Calcium: 8.7 mg/dL (14:05) Chloride:??93 mmol/L??Low (14:05) Creatinine-Blood: 1.1 mg/dL (14:05) Estimated GFR Creatinine: 72 ML/MIN/1.73 M2 (14:05) Glucose Level:??287 mg/dL??High (14:05) Ionized Calcium (POC) POC Cartridge:??1.05 mmol/L??Low (14:07) Potassium:??5.4 mmol/L??High (14:05) Sodium: 134 mmol/L (14:05) ?? Coagulation Profile?? No qualifying data available. ?? LFT Albumin: 4 Gm/dL (14:05) Alkaline Phosphatase:??133 units/L??High (14:05) ALT (SGPT): 8 units/L (14:05) AST (SGOT): 10 units/L (14:05) Bilirubin, Total: 0.2 mg/dL (14:05) ?? Urinalysis Albumin, Urine: NEGATIVE (15:10) Appear/Color, Urine: LIGHT YELLOW (15:10) Bilirubin, Urine: NEGATIVE (15:10) Glucose, Urine: 1+ Abnormal (15:10) Hemoglobin, Urine: NEGATIVE (15:10) Hold Urine Culture: Testing available 48 hours from time of collection. (15:10) Ketones, Urine: NEGATIVE (15:10) Leukocyte, Urine: NEGATIVE (15:10) Mucus: SLIGHT (15:10) Nitrite, Urine: NEGATIVE (15:10) pH, Urine: 5 (15:10) RBC's, Urine: 1 /HPF (15:10) Specific [place], Urine: 1.014 (15:10) Squamous Epith: 3 /HPF (15:10) Urobilinogen: NORMAL (15:10) WBC's, Urine: 1 /HPF (15:10) ?? Microbiology ?? COVID-19, RSV, and Flu A/B, Rapid PCR?? Completed?? Source: Nasal Body Site: Nose Collected Dt/Tm: 05/15/2022 13:58 Last Updated Dt/Tm: 05/15/2022 15:35 ? Cardiology Labs CK, Total: 57 units/L (05/15/22 14:05:00) Nt-Probnp:??1861 pg/mL??High (05/15/22 14:05:00) High Sensitivity Troponin (HSTnT):??52 ng/L??High (05/15/22 16:34:00) High Sensitivity Troponin (HSTnT):??58 ng/L??Critical (05/15/22 13:58:00) ?? Blood Gases Specimen Type - Blood Gas: VENOUS (14:07) pH Venous (POC) POC Cartridge:??7.45??High (14:07) pCO2 Venous (POC) POC Cartridge: 47.2 mm Hg (14:07) pO2 Venous (POC) POC Cartridge:??25 mm Hg??Low (14:07) Est Bicarbonate (POC) POC Cartridge:??33 mmol/L??High (14:07) % O2 Sat Venous (POC) POC Cartridge: 48 (14:07) Base Excess (POC) POC Cartridge: 9 (14:07) ?? Uric/LDH?? No qualifying data available. ?? 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 Age:??61 Years?Sex:??Male?:??1960?? Subjective does not think he had seizure says his son called paramedics he is not sure why he's here ?? Review of Systems ?? Constitutional- no fever, no chills HEENT- no ear pain, no tinnitus, no sore throat Respiratory- no shortness of breath?? CVS- no chest pain, no palpitations, no syncope Abdomen- no abdominal pain, nausea or vomiting Neuro- no headache, no paresthesias, no focal weakness - no dysuria, no hematuria Derm- no rash, no pruritis Objective Vital Signs?? Temperature: 97.8 DegF (05/16/22 07:49:00) Temperature Route: Oral (05/16/22 07:49:00) Pulse Rate:??113 bpm??High (05/16/22 08:23:00) Respiratory Rate: 16 br/min (05/16/22 08:23:00) Systolic Blood Pressure: 117 mm Hg (05/16/22 08:23:00) Diastolic Blood Pressure: 75 mm Hg (05/16/22 08:23:00) Blood pressure sites: Arm, right (05/16/22 07:49:00) Mean Arterial Pressure: 84 mm Hg (05/16/22 02:04:00) Pulse Pressure: 37 mm Hg (05/16/22 07:49:00) Oxygen Saturation: 96 % (05/16/22 06:33:00) Liters per Minute: 2 L/min (05/16/22 07:49:00) Mode of Delivery (Oxygen): Nasal cannula (05/16/22 07:49:00) Early Warning Score: 4 (05/16/22 08:25:23) ? Physical Exam General: ??PERRLA, NAD, Moist mucus membranes Neck: No JVD, no carotid bruit CVS: Regular S1 S2, No M/R/G Resp: CTAB, no crepitations or wheezing Abdo: Soft, NT, obese ND, NABS, no organomegaly, no masses SHEET CATCHER: AO x 3, No focal neurological deficits. Extremities: Right leg erythema distally, no warmth or tendernessNo edema, peripheral pulses palpable. _ Inpatient Medications Medications (31) Active SCHEDULED: (16) Apixaban 5 mg Tablet (apixaban 5 mg oral tablet) ??5 mg, By Mouth, 2 times a day Aspirin 81 mg EC Tablet (aspirin 81 mg oral delayed release tablet) ??81 mg, By Mouth, Daily Atorvastatin 80 mg Tablet (Lipitor 80 mg oral tablet) ??80 mg, By Mouth, Daily Digoxin 0.125 mg Tablet (Digoxin Tablet) ??0.125 mg, By Mouth, Every 48 hours Diltiazem 180 mg/24 hour CD Capsule (Cardizem CD 180 mg/24 hours oral capsule, extended release) ??360 mg, By Mouth, Daily Duloxetine 60 mg Capsule (DULoxetine Capsule) ??60 mg, By Mouth, Every 12 hours Gabapentin 400 mg Capsule (gabapentin 400 mg oral capsule) ??400 mg, By Mouth, 5 times a day Insulin Lispro 100 units/mL Inj (3mL) (Insulin LISPRO Sliding Scale) ??2-10 units, Subcutaneous Injection, 3 times a day before meals Isosorbide Mononitrate 30 mg ER Tablet (isosorbide mononitrate 30 mg oral tablet, extended release)??60 mg, By Mouth, Daily in AM Metoprolol 25 mg XL Tablet (Metoprolol ??XL Tablet) ??75 mg, By Mouth, Every 12 hours NaCl 0.9% Flush 3ml (NaCL 0.9% Flush) ??3 mL, IV Push, Every 8 hours Pantoprazole 40 mg EC Tablet (pantoprazole 40 mg oral delayed release tablet) ??40 mg, By Mouth, Daily Phenytoin 50 mg Chewable Tablet (Dilantin Tablet) ??200 mg, By Mouth, Daily Phenytoin 50 mg Chewable Tablet (Dilantin Tablet) ??400 mg, By Mouth, Daily at bedtime Quetiapine 200 mg Tablet (SEROquel 100 mg oral tablet) ??200 mg, By Mouth, Daily at bedtime Torsemide 20 mg tablet (torsemide 20 mg oral tablet) ??40 mg 2 tablet, By Mouth, Daily CONTINUOUS: (0) PRN: (15) Acetaminophen 325 mg Tablet (Acetaminophen Tablet) ??650 mg, By Mouth, Every 4 hours Albuterol 90mcg/Inhalation Inhaler HFA (Ventolin 90 mcg Inhaler) ??180 mcg 2 puffs, Inhalation, Every 4 hours Dextromethorphan-Guaifenesin 20 mg-200 mg/10 mL Liqu UD (Robitussin DM Liquid) ??10 mL, By Mouth, Every 4 hours Dextrose Inj Syringe (Dextrose 50% Inj Syringe (25Gm)) ??12.5 Gm, IV Push Slowly, Every 20 minutes Dextrose Inj Syringe (Dextrose 50% Inj Syringe (25Gm)) ??25 Gm, IV Push Slowly, Every 15 minutes Glucagon 1 mg Inj (Glucagon Inj) ??1 mg, Intramuscular, Once Glucose 40% Gel (15 Gm) (Glucose Gel) ??15 Gm, By Mouth, Every 20 minutes Glucose 40% Gel (15 Gm) (Glucose Gel) ??30 Gm, By Mouth, Every 20 minutes Melatonin 3 mg Tablet (Melatonin Tablet) ??3 mg, By Mouth, Daily at bedtime MorPHINE 2 mg Inj Syringe (MorPHINE Inj) ??2 mg, Subcutaneous Injection, Every 4 hours NaCl 0.9% Flush 3ml (NaCL 0.9% Flush) ??3 mL, IV Push, Every 8 hours OxyCODONE 5 mg IR Tablet (oxyCODONE 5 mg oral tablet) ??5 mg, By Mouth, 2 times a day Polyethylene Glycol 17 Gm Powder (MiraLax Powder) ??17 Gm 1 pack/packet, By Mouth, Daily Senna 8.6 mg / Docusate 50 mg tablet (Docusate/Senna Tablet) ??1 tablet, By Mouth, 2 times a day Simethicone 80 mg Chewable Tablet (Simethicone Tablet) ??80 mg, Chew, 3 times a day ? Results Recent Labs BLOOD COUNT & DIFF WBC 6.5 k/mm3 ()?? 05/15/2022 23:01 RBC 4.44 m/mm3 (Low)?? 05/15/2022 23:01 Hgb 9.8 Gm/dL (Low)?? 05/15/2022 23:01 Hct 34.7 % (Low)?? 05/15/2022 23:01 MCV 78.2 femtoliters (Low)?? 05/15/2022 23:01 MCH 22.1 pg (Low)?? 05/15/2022 23:01 MCHC 28.2 g/dL (Low)?? 05/15/2022 23:01 Platelet Count 308 k/mm3 ()?? 05/15/2022 23:01 RDW-SD 58.1 femtoliters (High)?? 05/15/2022 23:01 MPV 10.8 femtoliters ()?? 05/15/2022 23:01 Nucleated RBC (Automated) 0.0 #/100 WBC'S ()?? 05/15/2022 23:01 Abs. NRBC 0.0 k/mm3 ()?? 05/15/2022 23:01 Abs. Neut 4.6 k/mm3 ()?? 05/15/2022 23:01 Abs. Lymph 1.2 k/mm3 ()?? 05/15/2022 23:01 Abs. [place] 0.5 k/mm3 ()?? 05/15/2022 23:01 Abs. Eo 0.1 k/mm3 ()?? 05/15/2022 23:01 Abs. Baso 0.0 k/mm3 ()?? 05/15/2022 23:01 Neut % 71.0 % ()?? 05/15/2022 23:01 Lymph % 19.2 % ()?? 05/15/2022 23:01 [place] % 7.6 % ()?? 05/15/2022 23:01 Eos % 1.7 % ()?? 05/15/2022 23:01 Baso % 0.2 % ()?? 05/15/2022 23:01 Hemoglobin (POC) POC Cartridge 11.9 Gm/dL (Low)?? 05/15/2022 14:07 Hematocrit (POC) POC Cartridge 35 % (Low)?? 05/15/2022 14:07 Imm Gran 0.3 % ()?? 05/15/2022 23:01 Abs. Imm Gran 0.0 k/mm3 ()?? 05/15/2022 23:01 ?? BLOOD GAS pH Venous (POC) POC Cartridge 7.45 (High)?? 05/15/2022 14:07 pCO2 Venous (POC) POC Cartridge 47.2 mm Hg ()?? 05/15/2022 14:07 pO2 Venous (POC) POC Cartridge 25 mm Hg (Low)?? 05/15/2022 14:07 Est Bicarbonate (POC) POC Cartridge 33.0 mmol/L (High)?? 05/15/2022 14:07 % O2 Sat Venous (POC) POC Cartridge 48 ()?? 05/15/2022 14:07 Base Excess (POC) POC Cartridge 9 ()?? 05/15/2022 14:07 Specimen Type - Blood Gas VENOUS ()?? 05/15/2022 14:07 ?? CARDIAC CK, Total 57 units/L ()?? 05/15/2022 14:05 Nt-Probnp 1861 pg/mL (High)?? 05/15/2022 14:05 High Sensitivity Troponin (HSTnT) 47 ng/L (High)?? 05/15/2022 23:01 ?? CHEM GENERAL Sodium 137 mmol/L ()?? 05/15/2022 23:01 Potassium 5.0 mmol/L ()?? 05/15/2022 23:01 Chloride 96 mmol/L (Low)?? 05/15/2022 23:01 Bicarbonate Level 31 mmol/L (High)?? 05/15/2022 23:01 Anion Gap 10 ()?? 05/15/2022 23:01 Sodium (POC) POC Cartridge 132 mmol/L (Low)?? 05/15/2022 14:07 Potassium (POC) POC Cartridge 5.3 mmol/L (High)?? 05/15/2022 14:07 Glucose Level 215 mg/dL (High)?? 05/15/2022 23:01 Glucose (POC) POC Cartridge 282 (High)?? 05/15/2022 14:07 Glucose, POC 251 mg/dL (High)?? 05/16/2022 08:01 BUN 18 mg/dL ()?? 05/15/2022 23:01 Creatinine-Blood 0.9 mg/dL ()?? 05/15/2022 23:01 Estimated GFR Creatinine 96 ML/MIN/1.73 M2 ()?? 05/15/2022 23:01 Calcium 8.6 mg/dL ()?? 05/15/2022 23:01 Ionized Calcium (POC) POC Cartridge 1.05 mmol/L (Low)?? 05/15/2022 14:07 Protein, Total 6.2 Gm/dL ()?? 05/15/2022 23:01 Albumin 3.6 Gm/dL ()?? 05/15/2022 23:01 AG Ratio 1.4 ()?? 05/15/2022 23:01 Alkaline Phosphatase 120 units/L ()?? 05/15/2022 23:01 AST (SGOT) 9 units/L ()?? 05/15/2022 23:01 ALT (SGPT) 7 units/L ()?? 05/15/2022 23:01 Bilirubin, Total 0.2 mg/dL ()?? 05/15/2022 23:01 Lactate 1.4 mmol/L ()?? 05/15/2022 23:01 ?? ENDOCRINE/TUMOR MARKER TSH 1.53 uIU/mL ()?? 05/15/2022 14:05 ?? HEME OTHER Hold Lavender Top SPECIMEN DISCARDED AFTER 24 HOURS. ()?? 05/15/2022 16:34 Hold Blue Top SPECIMEN DISCARDED AFTER 4 HOURS. ()?? 05/15/2022 14:05 ?? MISC. CHEMISTRY Ammonia, Venous 19 ??mole/L ()?? 05/15/2022 23:00 Hold Green Top SPECIMEN DISCARDED AFTER 1 WEEK ()?? 05/15/2022 16:34 ?? TOXICOLOGY/TDM Dilantin Level 10.3 mg/L ()?? 05/15/2022 14:05 Salicylate Level <0.3 mg/dL (Low)?? 05/15/2022 23:01 Barbiturate Screen, Urine NONE DETECTED ()?? 05/15/2022 22:44 Cannabinoid Screen, Urine NONE DETECTED ()?? 05/15/2022 22:44 Cocaine Metabolite Screen, Urine NONE DETECTED ()?? 05/15/2022 22:44 Benzodiazepine Screen, Urine NONE DETECTED ()?? 05/15/2022 22:44 Amphetamine Screen, Urine NONE DETECTED ()?? 05/15/2022 22:44 Opiate Screen, Urine NONE DETECTED ()?? 05/15/2022 22:44 Acetaminophen Level <5 mg/L (Low)?? 05/15/2022 23:01 ?? UA/URINALYSIS Appear/Color, Urine LIGHT YELLOW ()?? 05/15/2022 15:10 Specific [place], Urine 1.014 ()?? 05/15/2022 15:10 pH, Urine 5.0 ()?? 05/15/2022 15:10 Albumin, Urine NEGATIVE ()?? 05/15/2022 15:10 Glucose, Urine 1+ (Abnormal)?? 05/15/2022 15:10 Ketones, Urine NEGATIVE ()?? 05/15/2022 15:10 Bilirubin, Urine NEGATIVE ()?? 05/15/2022 15:10 Hemoglobin, Urine NEGATIVE ()?? 05/15/2022 15:10 Nitrite, Urine NEGATIVE ()?? 05/15/2022 15:10 Leukocyte, Urine NEGATIVE ()?? 05/15/2022 15:10 Urobilinogen NORMAL mg/dL ()?? 05/15/2022 15:10 WBC's, Urine 1 /HPF ()?? 05/15/2022 15:10 RBC's, Urine 1 /HPF ()?? 05/15/2022 15:10 Squamous Epith 3 /HPF ()?? 05/15/2022 15:10 Mucus SLIGHT /LPF ()?? 05/15/2022 15:10 Hold Urine Culture Testing available 48 hours from time of collection. ()?? 05/15/2022 15:10 ?? VIROLOGY Influenza A PCR NEGATIVE ()?? 05/15/2022 14:15 Influenza B PCR NEGATIVE ()?? 05/15/2022 14:15 RSV PCR NEGATIVE ()?? 05/15/2022 14:15 COVID-19 PCR Specimen Source NASAL ()?? 05/15/2022 14:15 COVID-19 PCR Result NEGATIVE ()?? 05/15/2022 14:15 ? Assessment/Plan ?? 61-year-old male patient who has past medical history of hypertension, hyperlipidemia, atrial fibrillation/DVT???on Eliquis, asthma, RADHA???noncompliant with CPAP, morbid obesity, heart failure with preserved ejection fraction who presented to the emergency room with altered mental status ??and episode of unresponsiveness???suspect breakthrough seizure ?? Altered mental status History of seizure disorder Episode of??unresponsiveness???suspected breakthrough seizure ? His mental status has improved, now appears to be at baseline.?? I tried to call his family andleft a message??to call me back, left message for??his sister.. ??Patient states??his son??is the one who called EMS Monitor mentation closely, patient thinks he might have had seizures ???CT head was negative,??ammonia level was negative ???VBG showed no??acidosis Urine tox screenWas negative, serum salicylate and Tylenol levels were negative, chest x-ray was negative and UA was negative??for infection ??? Serum Dilantin level was 10.3, ??? Was seen by neurology, given his albumin of 3.6, he is adjusted phenytoin level was subtherapeutic, and neurology recommended increasing Dilantin to 300 mg in a.m. and continue 400 mg at bedtime ?He is also on multiple [employer] sedating meds, including gabapentin, duloxetine, Ativan, Seroquel, hydroxyzine, oxycodone and trazodone is on his external med review as well, although he thinks he may not be on it ? Will hold/DC trazodone and hydroxyzine.?? We will restart his Ativan which she has been on chronically.?? He has also been on gabapentin 400 Mg 5 times a day chronically, and has chronic neuropathic pain, will hold off on reducing that dose for now. ?PT eval???he has limited mobility over the last few years, mostly appears to be due to his musculoskeletal issues. ?Seizure precautions ??? He was also recently started on home O2,In 02/2022, was evaluated by pulmonary rehab nurse, to use 2 to 3 L O2 ? Will need outpatient sleep study T2DM Hold Oral anti diabetics ?Was started on sliding scale on admission, and will also give Lantus??while in hospital Hypoglycemia precautions Monitor POC Glucose closely and titrate insulin regimen accordingly check hemoglobin A1c ?? Hyperlipidemia Lipitor 80 ?? RADHA Noncompliant with CPAP ?? Heart failure with preserved ejection fraction Continue torsemide ?? Atrial fibrillation Currently rate controlled Continue home dose of metoprolol and CardizemAnd digoxin Telemetry monitoring Continue Eliquis ?? Lactic acidosis Improving Continue to monitor ?? Hyperkalemia, mild ???Received Lokelma 10 g, potassium improved to 5.0 ?? GERD Continue PPI ?? chronic pain ankle, knees, back pain, ???Has had previous??fractures and??surgeries and chronic pain in the bilateral ankles,??knees and lower back ???Continue oxycodone, which she has been on chronically ? Left shoulder pain Range of motion restricted secondary to pain,?? this has been chronic - left shoulder X ray showed moderate acromioclavicula rDegenerative change and mild glenohumeral degenerative change ?? Elevated troponin without chest pain EKG reviewed Repeat??third troponin Telemetry monitoring ?? Morbid obesity? DVT prophylaxis???on Eliquis ?? CODE STATUS???full code ?? Diet???diabetic/cardiac ?? OMN- increased antiepileptic dose, monitor neuro status and for seizures,?? and PT eval which was curtailed in ER as per aquatic facility manager, as patient thought he was going to have another seizure/aura. ??If remains neurologically intact,??will hopefully DC home in the next 24 hours ?? Note * Shanita WILKINS, Rigo Tompkins: PERFORM Event Display: Discharge/Transfer Note Hospital Authored Date: [id number] Patient: ??FRANC, LEON ? Age:??61 Years?Sex:??Male?:??1960?? Patient Information Discharge Location: [facility] Primary Care Physician: Brown Parada MD Admit Date/Time: 05/15/22 13:50 Discharge Disposition Discharge Disposition: Home with Home Health Discharge Diagnosis Possible breakthrough seizure ? _ Discharge Medications Albuterol (albuterol CFC free 90 mcg/inh inhalation aerosol)?2?puff(s)?Inhalation?Every4 hours?as needed?Wheezing/Shortness of Breath apixaban (apixaban 5 mg oral tablet)?1?tab(s)?5?Milligram?By Mouth?2 times a day?for 30?Days Aspirin (aspirin 81 mg oral delayed release tablet)?81?Milligram?By Mouth?Daily Atorvastatin (Lipitor 80 mg oral tablet)?1?tab(s)?80?Milligram?By Mouth?Daily Cholecalciferol (Vitamin D3 2000 intl units oral tablet)?1?tab(s)?By Mouth?Daily Cyanocobalamin (cyanocobalamin 1000 mcg oral tablet, extended release)?1?tab(s)?1,000?Microgram?By Mouth?Daily?BUBBLE PACK Diltiazem (Cardizem CD 360 mg/24 hours oral capsule, extended release)?1?capsule?360?Milligram?By Mouth?Daily Duloxetine (Cymbalta 30 mg oral enteric coated capsule)?2?capsule?60?Milligram?By Mouth?2 times a day Durable Medical Equipment (Deltec Cozmo Glucometer)?See Instructions?check blood sugar levelsbefore meals every day 3 times a day and at bedtime. Durable Medical Equipment (Insulin Syringe, BD Ultra-Fine 0.3 cc 31 G x 8 mm (516in))?See Instructions?for 30?Days?use as directed for Type 2 Diabetes Mellitus Durable Medical Equipment (One Touch Fine Point Lancets)?See Instructions?for 30?Days?use as directed for Type 2 Diabetes Mellitus Durable Medical Equipment (Bariatric wheelchair with standard leg rests)?See Instructions?22 x 16 standard bariatric wheelchairwt 157.7ht 191 cmDx: G89.4, 189, E66.01, 127.20lon 99 MO Fluticasone Nasal (Flonase 50 mcg/inh nasal spray)?1?spray(s)?Nares, Both?2 times a day Gabapentin (gabapentin 400 mg oral capsule)?1?capsule?By Mouth?5 times a day?HOLD FOR SEDATION. Isosorbide Mononitrate (Imdur 60 mg oral tablet, extended release)?60?Milligram?By Mouth?Daily in AM Loperamide (loperamide 2 mg oral tablet)?1?tab(s)?By Mouth?Every 4 hours?as needed? NEEDED FOR LOOSE STOOL Lorazepam (LORazepam 2 mg oral tablet)?1?tab(s)?2?Milligram?By Mouth?3 times a day?as needed?for anxiety Metformin (metFORMIN 1000 mg oral tablet)?1?tab(s)?1,000?Milligram?By Mouth?Daily Metoprolol (Metoprolol Succinate ER 50 mg oral tablet, extended release)?1?tab(s)?By Mouth?Daily Miscellaneous Rx (NURSING ORDERS)?See Instructions?LEFT ANKLE WOUND- CLEANSE NS, APPLY SILVADENE, DCD DAILY OR NURSING TO REC TX.DM II MONITORING AND COMMUNICATE SUGARS WITH PCP TO TITRATE LANTUS.[phone] Miscellaneous Rx (Freestyle Christin 14 day reader)?See Instructions?Freestyle Christin 14 day reader Miscellaneous Rx (Freestyle Christin 14 day sensor)?See Instructions?Freestyle Christin 14 day sensor nalOXONE (Narcan 4 mg/0.1 mL nasal spray)?4?Milligram?Naris, Left?Once?as needed?overdose Oxycodone (oxyCODONE 5 mg oral tablet)?5?Milligram?1?tablet?By Mouth?2 times a day?as needed?Dx: Chronic widespread pain syndrome; may fill for less than full amountAPPOINTMENT NEEDED FOR ADDITIONAL REFILLS?Pain , Severe Pantoprazole (pantoprazole 40 mg oral delayed release tablet)?1?tab(s)?By Mouth?Daily Phenytoin (phenytoin 100 mg oral capsule, extended release)?See Instructions?TAKE 3 CAPSULES BY MOUTH IN THE MORNING (THIS IS A DOSE INCREASE ) & TAKE 4 CAPSULES IN THE EVENING Quetiapine (QUEtiapine 200 mg oral tablet)?200?Milligram?1?tablet?TAKE ONE TABLET BYMOUTH TWICE A DAY Quetiapine (QUEtiapine 100 mg oral tablet)?TAKE ONE TABLET BY MOUTH EVERY DAY AT BEDTIME NEEDED FOR SLEEP, MAY TAKE 1 EXTRA TABLET NEEDED FOR INSOMNIA torsemide (torsemide 20 mg oral tablet)?2?tab(s)?40?Milligram?By Mouth?Daily?for 30?Days ? Doses Changed Phenytoin AM dose increased to 300mg daily AM and continue 400mg QHDS ?? Future Appointments Tuesday 10:30 AM EST ?? With: Balwinder FROST, Hilda Lucio Where: [facility] [address] [place] [address]- Tuesday 9:15 AM EST ?? With: Buck Ba MD Where: [facility] [address] [facility] 3rd Floor, [address] [place] [id number]- Hospital Course ??61-year-old male patient who has past medical history of hypertension, hyperlipidemia, atrial fibrillation/DVT???on Eliquis, asthma, RADHA???noncompliant with CPAP, morbid obesity, heart failure withpreserved ejection fraction who presented to the emergency room with altered mental status ??and episode of unresponsiveness???suspect breakthrough seizure ?? Altered mental status-resolved History of seizure disorder Episode of??unresponsiveness???suspected breakthrough seizure ? His mental status has improved, now appears to be at baseline.?? I tried to call his family andleft a message??to call me back, left message for??his sister.. ??Patient states??his son??is the one who called EMS. He could not find his son's number for me. ?CT head was negative,??ammonia level was negative ???VBG showed no??acidosis Urine tox screenWas negative, serum salicylate and Tylenol levels were negative, chest x-ray was negative and UA was negative??for infection ??? Serum Dilantin level was 10.3, ??? Was seen by neurology, given his albumin of 3.6, he is adjusted phenytoin level was subtherapeutic, and neurology recommended increasing Dilantin to 300 mg in a.m. and continue 400 mg at bedtime ?He is also on multiple SHEET CATCHER sedating meds, including gabapentin, duloxetine, Ativan, Seroquel, hydroxyzine, oxycodone and trazodone is on his external med review as well, although he thinks he may not be on it ? stopped?? trazodone and hydroxyzine.?? We will restart his Ativan which she has been on chronically.?? He has also been on gabapentin 400 Mg 5 times a day chronically, and has chronic neuropathicpain, will hold off on reducing that dose for now. ? have request home PT and VNA. ???he has limited mobility over the last few years, mostly appears to be due to his musculoskeletal issues. - he declined rehab ?Seizure precautions ??? He was also recently started on home O2,In 02/2022, was evaluated by pulmonary rehab nurse, to use 2 to 3 L O2 ? Will need outpatient sleep study- have discussed with patient.?? He has CPAP at home which he has not been compliant with - he was also started on home O2- 2 to 3L on prior hospitalization in 02/25-? he states he only has been using O2 PRN,?? and home VNA has noted no hypoxia.? He has O2 setup at home.?? Here, he was not hypoxic at rest.?? He is being discharged to home from ER/had consulted PT but he declined rehab even before PT eval,?? and agreed with home PT.?? So have requested home PT and home VNA. ? T2DM Hold Oral anti diabetics ?Was started on sliding scale on admission, and will also give Lantus??while in hospital -restarted on metformin on discharge ? - Hyperlipidemia Lipitor 80 ?? RADHA Noncompliant with CPAP - will need outpatient sleep study. Have discussed with patient. ?? Heart failure with preserved ejection fraction Continue torsemide ?? Atrial fibrillation Currently rate controlled Continue home dose of metoprolol and Cardizem And digoxin ?? Continue Eliquis ?? Lactic acidosis Improving Continue to monitor ?? Hyperkalemia, mild ???Received Lokelma 10 g, potassium improved to 5.0 ?? GERD Continue PPI ?? chronic pain ankle, knees, back pain, ???Has had previous??fractures and??surgeries and chronic pain in the bilateral ankles,??knees and lower back ???Continue oxycodone, which she has been on chronically ? Left shoulder pain Range of motion restricted secondary to pain,?? this has been chronic - left shoulder X ray showed moderate acromioclavicular Degenerative change and mild glenohumeral degenerative change ?? Elevated troponin without chest pain EKG reviewed Repeat??third troponin Telemetry monitoring ?? Morbid obesity? DVT prophylaxis???on Eliquis ?? CODE STATUS???full code ?? Diet???diabetic/cardiac ?? Objective Vital Signs?? Temperature: 97.9 DegF (05/17/22 08:09:00) Temperature Route: Oral (05/17/22 08:09:00) Pulse Rate:??101 bpm??High (05/17/22 08:12:00) Respiratory Rate: 20 br/min (05/17/22 08:12:00) Systolic Blood Pressure: 115 mm Hg (05/17/22 08:12:00) Diastolic Blood Pressure: 77 mm Hg (05/17/22 08:12:00) Blood pressure sites: Arm, right (05/16/22 14:01:00) Mean Arterial Pressure: 141 mm Hg (05/17/22 05:34:00) Pulse Pressure: 35 mm Hg (05/17/22 05:34:00) Oxygen Saturation: 98 % (05/17/22 08:09:00) Liters per Minute: 2 L/min (05/17/22 08:09:00) Mode of Delivery (Oxygen): Nasal cannula (05/17/22 08:09:00) Early Warning Score: 3 (05/17/22 08:17:40) ? . Physical Exam General: ??PERRLA, NAD, Moist mucus membranes Neck: No JVD, no carotid bruit CVS: Regular S1 S2, No M/R/G Resp: CTAB, no crepitations or wheezing Abdo: Soft, NT, ND, NABS, no organomegaly, no masses SHEET CATCHER: AO x 3, No focal neurological deficits. Extremities: No edema, peripheral pulses palpable. Pending Results Add On Lab Order ordered on 05/15/2022 Add On Lab Order ordered on 05/17/2022 Blood Culture ordered on 05/15/2022 Blood Culture #2 ordered on 05/15/2022 COVID-19 (2019 Novel Coronavirus) PCR ordered on 05/17/2022 Hemoglobin A1C (Monitoring) ordered on 05/15/2022 Hemoglobin A1C (Monitoring) ordered on 05/17/2022 Hold Gel Top Tube ordered on 05/15/2022 Follow-Up Appointments Added Follow Up ?Time Frame ?Comments Brown Parada?1 week [facility]?06/29/2022 09:15?PHONE FOLLOW UP-MD WILL CALLYOU-DO NOT COME TO THE OFFICE Patient Instructions Please obtain outpatient sleep study ?? Post Discharge Care Discharge ?ONCE CASE MANAGEMENT ARRANGES RIDE AND HOME VNA AND PT (EAP COUNSELOR IS Amelie Chua)., ??05/17/22 11:11:00 EST Discharge Prescriptions ?ePrescribed, ??05/17/22 11:11:00 EST Home Health Face to Face *Denotes mandatory osorio ?? *I certify that this patient is under my care and that I or an allowed non- physician working with me had a face to face encounter with the patient on this date:??05/17/2022 11:17 ?? *The encounter with the patient was in whole, or in part, for the following medical condition, which is the primary diagnosis(es) for home health care:??Altered mental status (R41.82) Heart failure (I50.9) ? *Select the indications for the discipline/s that are being arranged for this patient. Nursing (select all that apply): [_] None [X_] Medication management (reconciliation, teaching)?? [_] Chronic disease management?? [_] Wound care and treatment?? [_] Home safety evaluation [_] Administer SQ/IM/IV medications?? [_] Cath care?? [_] Drain care?? [_] Trach or GT care?? Other _ Occupation Therapy (select all that apply): [_] None [_] ADL Management [_] Fall prevention training [_] Energy conservation [_] Cognitive training Other _ Physical Therapy (select all that apply): [_] None [X_] Functional mobility training [X_] Home exercise program to strengthen [_] Increase ROM?? [_] Falls prevention training [_] Home maintenance program for chronic disease Other _ Speech Therapy (select all that apply): [_] None [_] Swallow evaluation and training [_] Speech and language training [_] Cognitive training to process, organize, and/or recall information Other _ ? *Homebound due to (select all that apply): [_] Inability to leave home without assistance/supervision [_] Inability to ambulate without assistance [_] Pain [X] Decreased strength and endurance [_] Unsteady gait [_] Severe SOB and fatigue [_] Impaired transfers [_] Inability to negotiate stairs [_] Limited weight bearing [_] Mental status change? *Physician Signature: _ Rigo Diehl MD ?? *By signing this, I certify that I have personally evaluated the patient and agree with the findings and recommendations as documented above. ? F Results Discharge Labs BLOOD COUNT & DIFF WBC 6.5 k/mm3 ()?? 05/17/2022 04:46 RBC 4.89 m/mm3 ()?? 05/17/2022 04:46 Hgb 10.4 Gm/dL (Low)?? 05/17/2022 04:46 Hct 38.0 % (Low)?? 05/17/2022 04:46 MCV 77.7 femtoliters (Low)?? 05/17/2022 04:46 MCH 21.3 pg (Low)?? 05/17/2022 04:46 MCHC 27.4 g/dL (Low)?? 05/17/2022 04:46 Platelet Count 313 k/mm3 ()?? 05/17/2022 04:46 RDW-SD 56.7 femtoliters (High)?? 05/17/2022 04:46 MPV 10.6 femtoliters ()?? 05/17/2022 04:46 Nucleated RBC (Automated) 0.0 #/100 WBC'S ()?? 05/17/2022 04:46 Abs. NRBC 0.0 k/mm3 ()?? 05/17/2022 04:46 Abs. Neut 5.2 k/mm3 ()?? 05/17/2022 04:46 Abs. Lymph 0.7 k/mm3 (Low)?? 05/17/2022 04:46 Abs. Arenac 0.5 k/mm3 ()?? 05/17/2022 04:46 Abs. Eo 0.1 k/mm3 ()?? 05/17/2022 04:46 Abs. Baso 0.0 k/mm3 ()?? 05/17/2022 04:46 Neut % 80.0 % (High)?? 05/17/2022 04:46 Lymph % 11.2 % (Low)?? 05/17/2022 04:46 [place]ac % 7.4 % ()?? 05/17/2022 04:46 Eos % 0.9 % ()?? 05/17/2022 04:46 Baso % 0.2 % ()?? 05/17/2022 04:46 Hemoglobin (POC) POC Cartridge 11.9 Gm/dL (Low)?? 05/15/2022 14:07 Hematocrit (POC) POC Cartridge 35 % (Low)?? 05/15/2022 14:07 Imm Gran 0.3 % ()?? 05/17/2022 04:46 Abs. Imm Gran 0.0 k/mm3 ()?? 05/17/2022 04:46 ?? BLOOD GAS pH Venous (POC) POC Cartridge 7.45 (High)?? 05/15/2022 14:07 pCO2 Venous (POC) POC Cartridge 47.2 mm Hg ()?? 05/15/2022 14:07 pO2 Venous (POC) POC Cartridge 25 mm Hg (Low)?? 05/15/2022 14:07 Est Bicarbonate (POC) POC Cartridge 33.0 mmol/L (High)?? 05/15/2022 14:07 % O2 Sat Venous (POC) POC Cartridge 48 ()?? 05/15/2022 14:07 Base Excess (POC) POC Cartridge 9 ()?? 05/15/2022 14:07 Specimen Type - Blood Gas VENOUS ()?? 05/15/2022 14:07 ? CARDIAC CK, Total 57 units/L ()?? 05/15/2022 14:05 Nt-Probnp 1861 pg/mL (High)?? 05/15/2022 14:05 High Sensitivity Troponin (HSTnT) 47 ng/L (High)?? 05/15/2022 23:01 ? CHEM GENERAL Sodium 136 mmol/L ()?? 05/17/2022 04:46 Potassium 4.6 mmol/L ()?? 05/17/2022 04:46 Chloride 95 mmol/L (Low)?? 05/17/2022 04:46 Bicarbonate Level 31 mmol/L (High)?? 05/17/2022 04:46 Anion Gap 10 ()?? 05/17/2022 04:46 Sodium (POC) POC Cartridge 132 mmol/L (Low)?? 05/15/2022 14:07 Potassium (POC) POC Cartridge 5.3 mmol/L (High)?? 05/15/2022 14:07 Glucose Level 270 mg/dL (High)?? 05/17/2022 04:46 Glucose (POC) POC Cartridge 282 (High)?? 05/15/2022 14:07 Glucose, POC 251 mg/dL (High)?? 05/17/2022 05:30 BUN 15 mg/dL ()?? 05/17/2022 04:46 Creatinine-Blood 0.9 mg/dL ()?? 05/17/2022 04:46 Estimated GFR Creatinine 94 ML/MIN/1.73 M2 ()?? 05/17/2022 04:46 Calcium 8.6 mg/dL ()?? 05/17/2022 04:46 Ionized Calcium (POC) POC Cartridge 1.05 mmol/L (Low)?? 05/15/2022 14:07 Protein, Total 6.2 Gm/dL ()?? 05/15/2022 23:01 Albumin 3.6 Gm/dL ()?? 05/15/2022 23:01 AG Ratio 1.4 ()?? 05/15/2022 23:01 Alkaline Phosphatase 120 units/L ()?? 05/15/2022 23:01 AST (SGOT) 9 units/L ()?? 05/15/2022 23:01 ALT (SGPT) 7 units/L ()?? 05/15/2022 23:01 Bilirubin, Total 0.2 mg/dL ()?? 05/15/2022 23:01 Lactate 1.4 mmol/L ()?? 05/15/2022 23:01 ? ENDOCRINE/TUMOR MARKER TSH 1.53 uIU/mL ()?? 05/15/2022 14:05 ? HEME OTHER Hold Lavender Top SPECIMEN DISCARDED AFTER 24 HOURS. ()?? 05/15/2022 16:34 Hold Blue Top SPECIMEN DISCARDED AFTER 4 HOURS. ()?? 05/15/2022 14:05 ?? MISC. CHEMISTRY Ammonia, Venous 19 ??mole/L ()?? 05/15/2022 23:00 Hold Green Top SPECIMEN DISCARDED AFTER 1 WEEK ()?? 05/15/2022 16:34 ?? TOXICOLOGY/TDM Dilantin Level 10.3 mg/L ()?? 05/15/2022 14:05 Salicylate Level <0.3 mg/dL (Low)?? 05/15/2022 23:01 Barbiturate Screen, Urine NONE DETECTED ()?? 05/15/2022 22:44 Cannabinoid Screen, Urine NONE DETECTED ()?? 05/15/2022 22:44 Cocaine Metabolite Screen, Urine NONE DETECTED ()?? 05/15/2022 22:44 Benzodiazepine Screen, Urine NONE DETECTED ()?? 05/15/2022 22:44 Amphetamine Screen, Urine NONE DETECTED ()?? 05/15/2022 22:44 Opiate Screen, Urine NONE DETECTED ()?? 05/15/2022 22:44 Acetaminophen Level <5 mg/L (Low)?? 05/15/2022 23:01 ? UA/URINALYSIS Appear/Color, Urine LIGHT YELLOW ()?? 05/15/2022 15:10 Specific [place], Urine 1.014 ()?? 05/15/2022 15:10 pH, Urine 5.0 ()?? 05/15/2022 15:10 Albumin, Urine NEGATIVE ()?? 05/15/2022 15:10 Glucose, Urine 1+ (Abnormal)?? 05/15/2022 15:10 Ketones, Urine NEGATIVE ()?? 05/15/2022 15:10 Bilirubin, Urine NEGATIVE ()?? 05/15/2022 15:10 Hemoglobin, Urine NEGATIVE ()?? 05/15/2022 15:10 Nitrite, Urine NEGATIVE ()?? 05/15/2022 15:10 Leukocyte, Urine NEGATIVE ()?? 05/15/2022 15:10 Urobilinogen NORMAL mg/dL ()?? 05/15/2022 15:10 WBC's, Urine 1 /HPF ()?? 05/15/2022 15:10 RBC's, Urine 1 /HPF ()?? 05/15/2022 15:10 Squamous Epith 3 /HPF ()?? 05/15/2022 15:10 Mucus SLIGHT /LPF ()?? 05/15/2022 15:10 Hold Urine Culture Testing available 48 hours from time of collection. ()?? 05/15/2022 15:10 ?? VIROLOGY Influenza A PCR NEGATIVE ()?? 05/15/2022 14:15 Influenza B PCR NEGATIVE ()?? 05/15/2022 14:15 RSV PCR NEGATIVE ()?? 05/15/2022 14:15 COVID-19 PCR Specimen Source NASAL ()?? 05/15/2022 14:15 COVID-19 PCR Result NEGATIVE ()?? 05/15/2022 14:15 ? _ minutes spent on discharge * Shanita WILKINS, Rigo D: PERFORM, SIGN, VERIFY Edin BOSS, Tiki: SIGN Event Display: Patient Education Handout Authored Date: Portable XR Chest Views * [facility] , CIS S: TRANSCRIBE Christina Lu MD: VERIFY Event Display: Result: Authored Date: AP portable chest, INDICATION: Hx of Present Illness: see level one sheet; Reason: Other:; Clinical Question(s): Pneumonia COMPARISON: 05/03/2022 FINDINGS: LINES AND TUBES: None LUNGS AND PLEURA AND MEDIASTINUM: No pneumothorax or pleural effusion. No focal infiltrate. Heart size is borderline enlarged. IMPRESSION: No acute abnormality. WSN: [id number] Ordering Physician: Cecil Escobedo MD Dictated By: Christina Lu MD Dictated Date/Time: 05/15/22 2:42 pm Reviewed By: Christina Lu MD Signed By: Christina Lu MD Signed Date/Time: 05/15/22 2:42 pm Transcribed By: LEATHA Transcribed Date/Time: 05/15/22 2:[address] Cervical spine WO contrast * [facility] , CIS S: TRANSCRIMEDINA Mcrae MD, Oziel W: VERIFY Event Display: Result: Authored Date: CT Head/Brain W/O Contrast, CT Cervical Spine W/O Contrast INDICATION: Hx of Present Illness: see level one sheet; Reason: Dementia; Clinical Question(s): Hematoma TECHNIQUE: Noncontrast head CT using axial technique was reconstructed in axial and coronal planes.Noncontrast spiral CT through the cervical spine was formatted in 3 planes. Automatic tube modulation was used for the cervical spine and iterative dose reconstruction was used for both the head and cervical spine to optimize scan parameters and image quality. CTDIvol Body: 36.80 mGy, DLP Body: 967 mGy*cm. CTDIvol Head: 45.80 mGy, DLP Head: 966 mGy*cm. COMPARISON: 07/09/2021 FINDINGS: Integrated Circuit Design Engineer View Findings, Lines and Tubes: None. BRAIN AND EXTRA-AXIAL SPACES: Chronic encephalomalacia within the left parietal lobe. Chronic left cerebellar encephalomalacia. Small area of encephalomalacia within the right occipital lobe. No intracranial hemorrhage. Moderate prominence of the ventricles and sulci consistent with parenchymal volume loss. Mild low-density white matter changes. No subarachnoid hemorrhage. No subdural or epidural collection. CALVARIUM, SKULL BASE, AND SOFT TISSUES: No fractures or suspicious bony lesions. The paranasal sinuses and mastoid air cells are clear. Visualized orbits and globes are intact. The extracranial soft tissues are unremarkable. CERVICAL SPINE: Evaluation is somewhat limited by motion artifact. No fracture. No acute osseous abnormalities. Normal alignment. No locked or perched facet. Intervertebral disc spaces and vertebral body heightsare preserved. OTHER BONES: No acute abnormality. CERVICAL SOFT TISSUES AND LUNG APICES: Multiple small cervical chain lymph nodes, chronic. Visualized lung apices are clear. IMPRESSION: Somewhat limited evaluation of the cervical spine due to patient motion artifact. No traumatic malalignment or discrete fractures identified. No acute intracranial abnormality. 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 WSN: [id number] Ordering Physician: Cecil Escobedo MD Dictated By: Oziel Mcrae MD Dictated Date/Time: 05/15/22 3:00 pm Reviewed By: Oziel Mcrae MD Signed By: Oziel Mcrae MD Signed Date/Time: 05/15/22 3:00 pm Transcribed By: LEATHA Transcribed Date/Time: 05/15/22 2:[address] Head WO contrast * [facility] , CIS S: TRANSCRIBE Oziel Mcrae MD: VERIFY Event Display: Result: Authored Date: CT Head/Brain W/O Contrast, CT Cervical Spine W/O Contrast INDICATION: Hx of Present Illness: see level one sheet; Reason: Dementia; Clinical Question(s): Hematoma TECHNIQUE: Noncontrast head CT using axial technique was reconstructed in axial and coronal planes.Noncontrast spiral CT through the cervical spine was formatted in 3 planes. Automatic tube modulation was used for the cervical spine and iterative dose reconstruction was used for both the head and cervical spine to optimize scan parameters and image quality. CTDIvol Body: 36.80 mGy, DLP Body: 967 mGy*cm. CTDIvol Head: 45.80 mGy, DLP Head: 966 mGy*cm. COMPARISON: 07/09/2021 FINDINGS: Integrated Circuit Design Engineer View Findings, Lines and Tubes: None. BRAIN AND EXTRA-AXIAL SPACES: Chronic encephalomalacia within the left parietal lobe. Chronic left cerebellar encephalomalacia. Small area of encephalomalacia within the right occipital lobe. No intracranial hemorrhage. Moderate prominence of the ventricles and sulci consistent with parenchymal volume loss. Mild low-density white matter changes. No subarachnoid hemorrhage. No subdural or epidural collection. CALVARIUM, SKULL BASE, AND SOFT TISSUES: No fractures or suspicious bony lesions. The paranasal sinuses and mastoid air cells are clear. Visualized orbits and globes are intact. The extracranial soft tissues are unremarkable. CERVICAL SPINE: Evaluation is somewhat limited by motion artifact. No fracture. No acute osseous abnormalities. Normal alignment. No locked or perched facet. Intervertebral disc spaces and vertebral body heightsare preserved. OTHER BONES: No acute abnormality. CERVICAL SOFT TISSUES AND LUNG APICES: Multiple small cervical chain lymph nodes, chronic. Visualized lung apices are clear. IMPRESSION: Somewhat limited evaluation of the cervical spine due to patient motion artifact. No traumatic malalignment or discrete fractures identified. No acute intracranial abnormality. 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 WSN: [id number] Ordering Physician: Cecil Escobedo MD Dictated By: Oziel Mcrae MD Dictated Date/Time: 05/15/22 3:00 pm Reviewed By: Oziel Mcrae MD Signed By: Oziel Mcrae MD Signed Date/Time: 05/15/22 3:00 pm Transcribed By: LEATHA Transcribed Date/Time: 05/15/22 2:54 pm XR Shoulder - left GE 2 Views * [facility] , CIS S: TRANSCRIBE Bethany Painter MD: VERIFY Event Display: Result: Authored Date: Shoulder Min 2 Views Left, 3 views Reason: Pain; Clinical Question(s): Fracture COMPARISON: 12/24/2016 FINDINGS: No fracture or dislocation. Mild degenerative changes with mild osteophyte formation. No significant joint space narrowing. Moderate acromioclavicular degenerative changes with joint space narrowing and endplate sclerosis. No calcification of the rotator cuff. IMPRESSION: No specific evidence of acute fracture or malalignment. Moderate acromioclavicular degenerative changes and mild glenohumeral degenerative changes. WSN: [id number] Ordering Physician: Tonia Yu Dictated By: Bethany Painter MD Dictated Date/Time: 05/16/22 9:19 am Reviewed By: Bethany Painter MD Signed By: Bethany Painter MD Signed Date/Time: 05/16/22 9:19 am Transcribed By: LEATHA Transcribed Date/Time: 05/16/22 9:16 am Patient Care team information Care Team [...] Role: Primary Care Nurse Address: Address: [address] [place] [address]- [place] Name: Bruce Mccurdy MD Position: [facility] Renal MD Member Role: Lifetime Consulting Physician Address: Address: [address] [place] [address], [address] [facility] [place] [address]- [place] Name: Cristo Elias RN Position: [facility] RN Member Role: Primary Care Nurse Name: Malika Richards RN Position: [facility] Pest Control Operator Member Role: Primary Care Nurse Name: [...] Physician Member Role: PCP Address: Address: [address] [place] [address]- [place] Name: Charlette Lopez RN Position: [facility]. [...] Member Role: Primary Care Nurse Name: Kirill cMcartney RN Position: [facility] [...] Member Role: Lifetime Consulting Physician Address: Address: [address] [place] [address] [facility] [address] Name: Eusebia Hassan RN Position: [facility] RN Member Role: Primary Care Nurse Name: Chauncey STEIN Attending Position: [facility] ED Medicine MD Name: Siobhan Ray RN Position: [facility] ED RN W/OE and Tasks Member Role: Patient Care Provider Name: Tylor Matta Position: [facility] ED TA [facility] Member Role: Manager Support Care Team Related Persons Name: JIMENEZ BRUNER Address: [address] [place] [address] Name: KADEN DE JESUSA Address: home [address] [place] [address]
--- OUTSIDE RECORDS SUMMARY | 2022-10-04 17:53 | XMS_ITS | Continuity of Care Document ---
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 Name Role Phone Sanaz WILKINS, Matheus Castro Primary Care Physician Encounter [facility] Date(s): 05/25/21 - 06/24/21 [facility] Adult [address] [place] [address]- Allergies, Adverse Reactions, Alerts Substance Reaction Severity [...] kyle tetanus/diphtheria/pertussis, acel(Tdap) 05/07/09 Given 1Result Comment: [id number] 2Result Comment: [id number] 3Result Comment: [05/15/2018] [id number] Medications acetaminophen 325 mg oral tablet 650 [...] 01/13/21 15:09:00 EDT, Route to Pharmacy Electronically, [facility], Partial fill upon [...] 01/13/21 15:09:00 EDT, Route to Pharmacy Electronically, [facility], Partial fill upon patient [...] 01/18/21 11:37:00 EDT, Route to Pharmacy Electronically, [facility], Partial fill upon patient request if the prescription is for a errol... Start Date: 01/18/21 Status: Ordered Flonase 50 mcg/inh nasal spray 1 sprays, Nares, Both, 2 times a day, # 16 Gm, 11 Refills, Maintenance, 07/08/20 16:47:00 EST, [place], [facility], 1 sprays [...] Refills 0, Tot. Refills 0, Maintenance, dx: [id number]. 40, oxygen dependence Z99.81, 01/27/21 11:50:00 EDT, [...] 01/18/21 11:37:00 EDT, Route to Pharmacy Electronically, [facility], Partial fill upon [...] 04/02/21 8:22:00 EDT, Route to Pharmacy Electronically, [facility], 190, cm, 01/23/21 8:35:00 EDT, Height, 153, kg, 01/14/21... Start Date: 04/02/21 Status: Ordered ProAir HFA 90 mcg/inh inhalation aerosol 2 puffs, Inhalation, Every 4 hours, PRN Wheezing/Shortness of Breath, # 1 each, 5 Refills, Maintenance, 06/27/20 16:56:00 EST, 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
--- OUTSIDE RECORDS SUMMARY | 2022-10-04 17:53 | XMS_ITS | Continuity of Care Document ---
Author Name Unknown Organization [facility] Address [address] [place] [address]- Care Team Providers Care Toll Ticket Clerk Name Role Phone Sanaz WILKINS, Matheus Castro Primary Care Physician [phone] Encounter [facility] Date(s): 01/13/21 - 02/12/21 [facility] Adult [address] [place] [address]- Allergies, Adverse Reactions, Alerts Substance Reaction Severity [...] kyle tetanus/diphtheria/pertussis, acel(Tdap) 05/07/09 Given 1Result Comment: [id number] 2Result Comment: [id number] 3Result Comment: [05/15/2018] [id number] Medications acetaminophen 325 mg oral tablet 650 mg, By Mouth, Every 4 hours, PRN, Refills 0, Maintenance, Pain , Mild, 12/12/19 13:05:00 EDT Start Date: 12/12/19 Status: Ordered apixaban 5 mg oral tablet 1 tablet = 5 mg, By Mouth, 2 times a day, # 60 tablet, 3 Refills, Maintenance, 01/13/21 15:09:00 EDT, Tablet, [facility], Partial fill upon [...] Refills, Maintenance, 01/13/21 15:09:00 EDT, CR Capsule, [facility], Partial fill upon patient request if the prescription is for a schedule II opioid drug., 190, cm, 01/13/21 7:49:00... Start Date: 01/13/21 Stop Date: 03/14/21 Status: Ordered colchicine 0.6 mg oral tablet 0.6 mg, 1, tablet, By Mouth, 2 times a day, # 60 tablet, Refills 1, Tot. Refills 1, Maintenance, 01/13/21 15:09:00 EDT, Route to Pharmacy Electronically, [facility], Partial fill upon patient request if [...] 01/13/21 15:09:00 EDT, Route to Pharmacy Electronically, [facility], Partial fill upon patient request if [...] 01/18/21 11:37:00 EDT, Route to Pharmacy Electronically, [facility], Partial fill upon patient request if the prescription is for a errol... Start Date: 01/18/21 Status: Ordered Flonase 50 mcg/inh nasal spray 1 sprays, Nares, Both, 2 times a day, # 16 Gm, 11 Refills, Maintenance, 07/08/20 16:47:00 EST, [place], [facility], 1 sprays [...] Refills 0, Tot. Refills 0, Maintenance, dx: [id number]. 40, oxygen dependence Z99.81, 01/27/21 11:50:00 EDT, [...] 01/18/21 11:37:00 EDT, Route to Pharmacy Electronically, [facility], Partial fill upon patient request if [...] Unknown, 11 Refills, Maintenance, 08/08/20 12:45:00 EST, [facility], 191, cm, 06/24/20 13:40:00 EST, Height, 193.5, kg, 05/21/19 5:38:00 EST, Dry Weight Start Date: 08/08/20 Status: Ordered Metoprolol Succinate ER 50 mg oral tablet, extended release = 150 mg, By Mouth, Daily, # 150 each, 1 Refills, Soft Stop, 01/13/21 15:30:00 EDT, [facility], 190, cm, 01/13/21 7:49:00 EDT, Height, 170.4, kg, 12/31/20 8:52:00 EDT, Dry Weight Start Date: 01/13/21 Stop Date: 03/14/21 Status: Ordered phenytoin 100 mg oral capsule, extended release See Instructions, TAKE 2 CAPSULES BY MOUTH IN THE MORNING & TAKE 4 CAPSULES IN THE EVENING., # 180 Unknown, 3 Refills, Maintenance, [facility], 191, cm, 06/24/20 13:40:00 EST, Height, 193.5, kg, 05/21/19 5:38:00 EST, Dry Weight Start Date: 11/10/20 Status: Ordered prazosin 5 mg oral capsule 5 mg, 1, capsule, By Mouth, Daily at bedtime, # 30 capsule, Refills 5, Tot. Refills 5, Maintenance,07/19/19 15:02:00 EST, Route to Pharmacy Electronically, [facility], 191, cm, 07/18/19 14:17:00 EST, Height, 193.5, kg, 05/21/19 5:38:00 E... Start Date: 07/19/19 Status: Ordered ProAir HFA 90 mcg/inh inhalation aerosol 2 puffs, Inhalation, Every 4 hours, PRN Wheezing/Shortness of Breath, # 1 each, 5 Refills, Maintenance, 06/27/20 16:56:00 EST, [facility], Partial fill upon patient request [...] Unknown, 5 Refills, Maintenance, 01/23/21 11:11:00 EDT, [facility], 190, cm, 01/23/21 8:35:00 EDT, Height, 153, kg, 01/14/21 23:22:00 EDT, Dry Weight Start Date: 01/23/21 Status: Ordered torsemide 20 mg oral tablet 2 tablet = 40 mg, By Mouth, Daily, # 60 tablet, 1 Refills, Maintenance, 01/13/21 15:10:00 EDT, Tablet, [facility], Partial fill upon patient request if the prescription is for a schedule II opioid drug., 190, cm, 01/13/21 7:49:00 EDT, He... Start Date: 01/13/21 Stop Date: 03/14/21 Status: Ordered traZODone 50 mg oral tablet 100 mg, 2, tablet, By Mouth, Daily at bedtime, # 60 tablet, Refills 5, Tot. Refills 5, Maintenance,01/23/21 11:11:00 EDT, Route to Pharmacy Electronically, [facility], 190, cm, 01/23/21 8:35:00 EDT, Height, 153, kg, 01/14/21 23:22:00 EDT... 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
--- NOTE | 2022-10-04 18:44 | PC.ADMIT ---
Pt arrived to [facility] from [facility] at 1755 via stretcher. patient signed CV upon entry, Assessment was completed with patient and crisis assessment. precipitants of admission include SI with no plan. Pt A+Ox4 pleasant and cooperative. Hearing intact wears glasses for reading only. Pt denies SI/HI/SIB/AVH, Pt with multiple scratches and skin tears, cellulites noted to Rt lower leg, Pt is continent of bowel and bladder, total pivot to wheelchair, and wheelchair bound. Pt denies any physical complaints at this time.
[2022-10-04 19:00] VITALS: BP 118/85; RESP 18; TEMP 36.6; O2SAT 97
--- NOTE | 2022-10-04 21:53 | PC.NURSE ---
Med rec done w/records from [facility]. Unclear whether pt is supposed to be taking isosorbide or not. D/c med list does not have med listed, however the discharge note states Imdur decreased to 30mg Daily . Hospitalist notified for need of H&P and informed of this detail as well.
[2022-10-04 22:00] VITALS: BMI 39.4
[2022-10-04] MEDS: QUEtiapine Fumarate 200 MG TABLET PO (22:15)
[2022-10-04] MEDS: LORazepam 1 MG TABLET 2 MG PO (22:15)
[2022-10-04] MEDS: Gabapentin 400 MG CAPSULE PO (22:15)
[2022-10-04] MEDS: Apixaban 5 MG TABLET PO (22:15)
[2022-10-04] MEDS: Melatonin 3 MG TABLET PO (22:16)
[2022-10-04] MEDS: hydrOXYzine HCL 25 MG TABLET PO (22:16)
[2022-10-04] MEDS: traZODone HCL 50 MG TABLET PO (22:16)
[2022-10-04] MEDS: DULoxetine HCl 60 MG CAPSULE.DR PO (22:16)
[2022-10-04] MEDS: Acetaminophen 325 MG TABLET 650 MG PO (22:16)
[2022-10-04] MEDS: Phenytoin Sodium Extended 100 MG CAPSULE 400 MG PO (22:16)
[2022-10-04 22:28] LABS: Glucose, Whole Blood 160 mg/dL (60-115)
[2022-10-05] MEDS: Gabapentin 400 MG CAPSULE PO ×5 (05:39→21:50)
[2022-10-05] MEDS: Omeprazole 20 MG CAPSULE.DR PO (05:39)
[2022-10-05] MEDS: hydrOXYzine HCL 25 MG TABLET PO (05:50)
[2022-10-05 08:10] LABS: Glucose, Whole Blood 150 mg/dL (60-115)
[2022-10-05 08:11] LABS: Alanine Aminotransferase 14 U/L (0-40); Alkaline Phosphatase 114 U/L (39-117); Anion Gap 17 (12-20); Aspartate Amino Transferase 11 U/L (5-37); Bilirubin Total 0.5 mg/dL (0.0-1.0); Blood Urea Nitrogen 22 mg/dL (9-16); Calcium 9.6 mg/dL (8.4-10.2); Carbon Dioxide 29 mmol/L (22-29); Chloride 99 mmol/L (96-108); Cholesterol 134 mg/dL; Creatinine Clr Calc Pharmacy 122.4; Estimated Glomerular Filt Rate > 60; Glucose Fasting 150 mg/dL (60-99); HDL Cholesterol 47 mg/dL; LDL Cholesterol Calculated 66 mg/dl; Potassium 4.9 mmol/L (3.3-5.1); Sodium 140 mmol/L (135-145); Total Protein 7.2 g/dL (6.5-8.0); Triglycerides 107 mg/dL
[2022-10-05 08:15] VITALS: BP 113/76; PULSE 119; RESP 18; TEMP 36.3; O2SAT 97
[2022-10-05] MEDS: Atorvastatin Calcium 80 MG TABLET PO (08:53)
[2022-10-05] MEDS: Phenytoin Sodium Extended 100 MG CAPSULE 200 MG PO (08:53)
[2022-10-05] MEDS: metFORMIN HCl 1,000 MG TABLET 1000 MG PO (08:53)
[2022-10-05] MEDS: Sennosides 8.6 MG TABLET PO (08:53)
[2022-10-05] MEDS: Torsemide 20 MG TABLET 40 MG PO (08:53)
[2022-10-05] MEDS: ARIPiprazole 5 MG TABLET 7.5 MG PO (08:54)
[2022-10-05] MEDS: QUEtiapine Fumarate 200 MG TABLET PO ×2 (08:54→21:52)
[2022-10-05] MEDS: DULoxetine HCl 60 MG CAPSULE.DR PO ×2 (08:56→21:52)
[2022-10-05] MEDS: Apixaban 5 MG TABLET PO ×2 (08:56→21:50)
[2022-10-05] MEDS: Metoprolol Succinate ER 25 MG TAB.ER.24H 75 MG PO (08:56)
[2022-10-05] MEDS: Fluticasone Propionate Nasal 16 GM SPRAY 1 SPRAY NOSTRIL-B (09:01)
[2022-10-05] MEDS: Nystatin Powder 15 GM BOTTLE 1 APPL TOPICAL (09:03)
--- NOTE | 2022-10-05 15:04 | HO.PSYADMNOT ---
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 According to the crisis assessment, the patient was initially admitted in June at [facility] for COVID, and later on while he was at home he fell and he was rushed to the emergency room [facility]. According to him he stayed in his apartment asking for help for hours. While he was on the emergency room, he was hypotensive and he needed to be admitted into the medical surgical unit of [facility]. He stated in the medical unit for several weeks, he had several medical comorbidities such as morbid obesity, diabetes, status post [place], CAD, sleep apnea, chronic pain and depression. While they were preparing for discharge planning the patient reported exacerbation of depression with suicidal ideation. He was assessed by the psychiatric team and crisis and they decided to look for inpatient level of care. On interview, the patient reported a long history of depression in the past, he tried Wellbutrin that cause him seizures. He stated that currently he does not have any psychiatric providers. He complained of depressed mood, anhedonia, lack of energy, feelings of hopelessness and worthlessness and recently suicidal ideation without clear plan to kill himself by either choking himself or overdosing on his several medications. He was able to contract for safety in the facility. He adamantly denies hallucinations or delusions, no prior history of psychosis. We discussed at length risks, benefits, side-effects and alternatives and he agreed on the plan below. He is fully aware of the echevarria warning and he is willing to continue treatment in this facility. He stated that he has lost more than 200 lb in the last months due to his medical complications in the last weeks Past Psychiatric History: He was diagnosed of depression several years ago he tried Wellbutrin with seizures. He denies prior psychiatric admissions Medical Evaluation Reviewed: Hospitalist Teresa Pending [facility] Medical History Anxiety Arthritis Asthma Atrial fibrillation with rapid ventricular response Coronary artery disease Diabetes mellitus, type 2 Fall Hypertension Multifactorial gait disorder Obesity PTSD (post-traumatic stress disorder) TIA (transient ischemic attack) Transient ischemic attack (TIA) Weakness Family History: Denies Social History: The patient is the oldest of 6 children, his milestones were achieved at expected age, he was raised by his parents. He attended regular school, graduated have 1 year of college. 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 He was he has 2 children 1 of his sons and the other was 22 is not involved in his care. He lives alone in an apartment. Substance History: He reported that he has tried drugs in the past such as wearing 1, came and LSD. He denies prior treatment for substance abuse. He denies legal encounters due to substance abuse Trauma History: Denies Diagnostics Vital Signs (24Hr): Vital Signs - 24 hr 10/04/22 19:00 10/05/22 08:15 Temperature 98 F 97.3 F Pulse Rate 119 H Respiratory Rate 18 18 Blood Pressure 118/85 113/76 Pulse Oximetry 97 97 Oxygen Delivery Method Room Air Room Air BMI result Body Mass Index 39.4 Labs 10/05/22 07:34 Labs: Laboratory Results - last 48 hr 10/04/22 10/05/22 10/05/22 22:20 07:34 08:05 Sodium 140 Potassium 4.9 D Chloride 99 Carbon Dioxide 29 Anion Gap 17 BUN 22 H Creatinine 0.93 Estim Creat Clear Calc 122.4 Estimated GFR > 60 POC Glucose 160 H 150 H Fasting Glucose 150 H Calcium 9.6 D Total Bilirubin 0.5 AST 11 ALT 14 Alkaline Phosphatase 114 Total Protein 7.2 Albumin 4.0 Triglycerides 107 Cholesterol 134 LDL Cholesterol, Calc 66 HDL Cholesterol 47 Meds/Allergies Meds Home Medications Medication Instructions Recorded Confirmed Type apixaban 5 mg tablet (Eliquis) 1 tab PO BID 07/08/22 10/04/22 History hydroxyzine HCl 25 mg tablet 1 tab PO TID PRN Anxiety 07/08/22 10/04/22 History lorazepam 2 mg tablet 1 tab PO TID PRN Anxiety 07/08/22 10/04/22 History metformin 1,000 mg tablet 1 tab PO DAILY 07/08/22 10/04/22 History oxycodone 5 mg tablet 1 tab PO TID PRN Pain 07/08/22 10/04/22 History pantoprazole 40 mg tablet,delayed 1 tab PO DAILY@0630 07/08/22 10/04/22 History release phenytoin sodium extended 100 mg 200 mg PO DAILY 07/08/22 10/04/22 History capsule trazodone 50 mg tablet 1 tab PO BEDTIME 07/08/22 10/04/22 History acetaminophen 500 mg tablet 1,000 mg PO BID PRN Pain 07/09/22 10/04/22 History albuterol sulfate 90 mcg/actuation 2 puff inhalation Q4-6H PRN 07/09/22 10/04/22 History aerosol inhaler (ProAir HFA) Shortness Of Breath atorvastatin 80 mg tablet 1 tab PO DAILY 07/09/22 10/04/22 History digoxin 125 mcg (0.125 mg) tablet 1 tab PO Q2D 07/09/22 07/28/22 History duloxetine 30 mg capsule,delayed 30 mg PO DAILY 07/09/22 07/28/22 History release duloxetine 30 mg capsule,delayed 60 mg PO BID 07/09/22 10/04/22 History release fluticasone propionate 50 1 spray intranasal BID 07/09/22 10/04/22 History mcg/actuation nasal spray,suspension gabapentin 400 mg capsule 1 cap PO 5XD 07/09/22 10/04/22 History insulin glargine 100 unit/mL (3 20 unit subcut BEDTIME 07/09/22 07/28/22 History mL) subcutaneous pen (Lantus Solostar U-100 Insulin) insulin lispro 100 unit/mL 2 - 10 unit subcut TIDAC 07/09/22 10/04/22 History subcutaneous pen phenytoin sodium extended 100 mg 400 mg PO BEDTIME 07/09/22 10/04/22 History capsule quetiapine 100 mg tablet 1 tab PO BEDTIME PRN Insomnia 07/09/22 10/04/22 History quetiapine 200 mg tablet 1 tab PO BID 07/09/22 10/04/22 History torsemide 20 mg tablet 1 tab PO DAILY 07/09/22 10/04/22 History empagliflozin 10 mg tablet 10 mg PO DAILY 07/30/22 07/30/22 History (Jardiance) ferrous sulfate 324 mg (65 mg 324 mg PO DIRECTED 07/30/22 10/04/22 History iron) tablet,delayed release aripiprazole 5 mg tablet 7.5 mg PO DAILY 10/04/22 10/04/22 History calamine See Rx Instructions .Route .COMPLEX 10/04/22 10/04/22 History diltiazem HCl 120 mg capsule,24 120 mg PO DAILY@11 10/04/22 10/04/22 History hr,extended release lidocaine 5 % topical patch 1 patch topical DAILY 10/04/22 10/04/22 History melatonin 3 mg tablet 3 mg PO BEDTIME PRN Insomnia 10/04/22 10/04/22 History metoprolol succinate 25 mg 75 mg PO DAILY 10/04/22 10/04/22 History tablet,extended release 24 hr nitroglycerin 0.4 mg sublingual 0.4 mg sublingual Q5M PRN Chest 10/04/22 10/04/22 History tablet Pain nystatin 100,000 unit/gram topical 1 appl topical BID 10/04/22 10/04/22 History powder ondansetron 4 mg disintegrating 4 mg PO Q6H PRN Nausea 10/04/22 10/04/22 History tablet sennosides 8.6 mg tablet (senna) 8.6 mg PO DAILY 10/04/22 10/04/22 History simethicone 80 mg tablet 80 mg PO TID PRN Indigestion 10/04/22 10/04/22 History Allergies Allergies Allergy/AdvReac Type Severity Reaction Status Date / Time aspirin Allergy Severe OCCASIONAL Verified 04/08/22 14:18 RASH / TONGUE SWELLING, Hives, throat swellig bee pollen [BEE STINGS] Allergy Severe ANAPHYLAXIS Verified 04/08/22 14:18 Penicillins Allergy Severe ANAPHYLAXIS Verified 04/08/22 14:18 povidone-iodine [Betadine] Allergy Severe Redness of Verified 04/08/22 14:18 Skin soap [Betadine] Allergy Severe Redness of Verified 04/08/22 14:18 Skin spider venom [SPIDER BITES] Allergy Severe Hives Verified 04/08/22 14:18 amoxicillin Allergy Intermediate Hives Verified 04/08/22 14:18 clindamycin Allergy Mild RASH Verified 04/08/22 14:18 latex [Latex] Allergy Mild RASH Verified 04/08/22 14:18 shrimp Allergy Hives Verified 06/21/22 11:48 bupropion [From WELLBUTRIN] AdvReac Severe SEIZURES Verified 04/08/22 14:18 adhesive tape AdvReac Mild Rash Verified 04/14/22 15:55 Mental Status Exam Mental Status Exam Patient Appearance: Appropriate Patient Orientation: Person and Situation Level of Consciousness: Awake and Appropriate Patient Behavior: Guarded and Passive Mood Description: Calm and Constricted Affect Description: Depressed Patient Cognition Impaired: No Ability to Follow Directions: Good Speech Pattern: Clear Hallucinations: None Delusions: Not Present Thought Process: Linear and Evasive Thought Content: positive for [place] and positive for Circumstantial Judgement: Fair Assessment & Plan Assessment & Plan (1) Major depressive disorder: Status: Acute Code(s): F32.9 - Major depressive disorder, single episode, unspecified Plan The patient is a middle-aged male, morbidly obese with several medical comorbidities such as high blood pressure diabetes hypercholesterolemia morbid obesity, status post [place], CAD and depression initially admitted medically to [facility] and later on he verbalized exacerbation of depression with suicidal ideation. Plan 1. Gather collateral information. 2. Continue 15 minute checks, the patient is able to contract for safety. 3. Continue with medical workout. 4. Continue antidepressants Cymbalta 60 mg po bid, consider increase up to 90 mg po bid 5. PT consult Patient educated on: diagnosis Reason for continued inpatient stay Substantial Risk for: inability to function, rapid decompensation and med/psych decompensation Statement Statement: I have reviewed the history and physical and performed a pertinent examination on my patient. No changes have occurred unless specified. If the History and Physical was not performed prior to admission, the Hospitalist's service will be consulted for completing the admission physical. Time Spent With Patient Time: Total time managing care of this patient today __45__ minutes.
[2022-10-05] MEDS: LORazepam 1 MG TABLET 2 MG PO ×2 (16:21→23:49)
[2022-10-05] MEDS: oxyCODONE HCl Immed Release 5 MG TABLET PO ×2 (16:48→23:49)
[2022-10-05 16:53] LABS: Glucose, Whole Blood 134 mg/dL (60-115)
[2022-10-05 19:30] VITALS: BP 108/80; PULSE 122; RESP 20; TEMP 36.8; O2SAT 95
[2022-10-05] MEDS: Phenytoin Sodium Extended 100 MG CAPSULE 400 MG PO (21:51)
[2022-10-05] MEDS: traZODone HCL 50 MG TABLET PO (21:52)
[2022-10-05] MEDS: dilTIAZem HCL CD 120 MG CAP.ER.DEG PO (21:53)
--- NOTE | 2022-10-05 22:30 | P.CNHOSGPS_ITS ---
History of Present Illness Data of Consult Service Date: 10/05/22 Primary Care Provider: Brown Parada MD [facility] Medical History Anxiety Arthritis Asthma Atrial fibrillation with rapid ventricular response Coronary artery disease Diabetes mellitus, type 2 Fall Hypertension Multifactorial gait disorder Obesity PTSD (post-traumatic stress disorder) TIA (transient ischemic attack) Transient ischemic attack (TIA) Weakness Social History Household Members: None Housing: Apartment Do you presently have visiting nurse or other home services: Yes Alcohol intake: never Patient Tobacco Use Status: Never used Tobacco Smoked in Last 30 Days: No e-Cigarette/Vaping Use: Never Used Patient Interested in Nicotine Replacement: No Patient Given Instructions on How to Stop Smoking: No Second Hand Smoke Exposure: No Use of substances other than those prescribed or required for medical reasons: No Currently Displaying Signs/Symptoms of Drug Intoxication Withdrawal: No Any prior treatment program specific to substance use: No Have you been hit, kicked, punched, or otherwise hurt by someone within the past year? 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 Advance Directives: Yes Advance Directives on File: Yes Advance Directives Date on File: 07/27/22 Do you have thoughts of harming others: None Do you have a plan to hurt others: No Plan service: No Current occupational status: disabled Sexual orientation: Straight/Heterosexual Meds Allergies Allergy/AdvReac Type Severity Reaction Status Date / Time aspirin Allergy Severe OCCASIONAL Verified 04/08/22 14:18 RASH / TONGUE SWELLING, Hives, throat swellig bee pollen [BEE STINGS] Allergy Severe ANAPHYLAXIS Verified 04/08/22 14:18 Penicillins Allergy Severe ANAPHYLAXIS Verified 04/08/22 14:18 povidone-iodine [Betadine] Allergy Severe Redness of Verified 04/08/22 14:18 Skin soap [Betadine] Allergy Severe Redness of Verified 04/08/22 14:18 Skin spider venom [SPIDER BITES] Allergy Severe Hives Verified 04/08/22 14:18 amoxicillin Allergy Intermediate Hives Verified 04/08/22 14:18 clindamycin Allergy Mild RASH Verified 04/08/22 14:18 latex [Latex] Allergy Mild RASH Verified 04/08/22 14:18 shrimp Allergy Hives Verified 06/21/22 11:48 bupropion [From WELLBUTRIN] AdvReac Severe SEIZURES Verified 04/08/22 14:18 adhesive tape AdvReac Mild Rash Verified 04/14/22 15:55 Active Medications: Current Medications Acetaminophen (Acetaminophen 325 Mg Tablet) 650 mg PO Q6H PRN PRN Reason: Headache/Pain Mild Scale (1-3) Last Admin: 10/04/22 22:16 Dose: 650 mg Al Hydroxide/Mg Hydroxide (Magnesium Hydrox/Alum Hydrox 30 Ml Oral.Susp) 30 ml PO Q6H PRN PRN Reason: Heartburn/Nausea Albuterol Sulfate (Albuterol Sulfate 90 Mcg 8 Gm Inhaler) 2 puff INHALE Q4H PRN PRN Reason: Shortness Of Breath Apixaban (Apixaban 5 Mg Tablet) 5 mg PO BID [facility] Last Admin: 10/05/22 21:50 Dose: 5 mg Aripiprazole (Aripiprazole 5 Mg Tablet) 7.5 mg PO DAILY [facility] Last Admin: 10/05/22 08:54 Dose: 7.5 mg Atorvastatin Calcium (Atorvastatin Calcium 80 Mg Tablet) 80 mg PO DAILY [facility] Last Admin: 10/05/22 08:53 Dose: 80 mg Diltiazem HCl (Diltiazem Hcl Cd 120 Mg Cap.Er.Deg) 120 mg PO DAILY@11 [facility]; Protocol Last Admin: 10/05/22 21:53 Dose: 120 mg Duloxetine HCl (Duloxetine Hcl 60 Mg Capsule.) 60 mg PO BID [facility] Last Admin: 10/05/22 21:52 Dose: 60 mg Ferrous Sulfate (Ferrous Sulfate 324 Mg Tablet.Dr) 324 mg PO MoWeFr@0900 [facility] Fluticasone Propionate (Fluticasone Propionate Nasal 16 Gm [place]) 1 spray NOSTRIL-B BID [facility] Last Admin: 10/05/22 09:01 Dose: 1 spray Gabapentin (Gabapentin 400 Mg Capsule) 400 mg PO 5XD [facility] Last Admin: 10/05/22 21:50 Dose: 400 mg Hydroxyzine HCl (Hydroxyzine Hcl 25 Mg Tablet) 25 mg PO Q6H PRN PRN Reason: Anxiety Last Admin: 10/05/22 05:50 Dose: 25 mg Hydroxyzine HCl (Hydroxyzine Hcl 25 Mg Tablet) 25 mg PO TID PRN PRN Reason: Anxiety Last Admin: 10/04/22 22:16 Dose: 25 mg Lidocaine (Lidocaine 4 % Patch Adh..Patch) 1 patch TRANSDERMA DAILY [facility] Last Admin: 10/05/22 09:03 Dose: Not Given Lorazepam (Lorazepam 1 Mg Tablet) 2 mg PO TID PRN PRN Reason: Anxiety Last Admin: 10/05/22 16:21 Dose: 2 mg Magnesium Hydroxide (Milk Of Magnesia 30 Ml Oral.Susp) 30 ml PO DAILY PRN PRN Reason: Constipation Melatonin (Melatonin 3 Mg Tablet) 3 mg PO BEDTIME PRN PRN Reason: Insomnia Last Admin: 10/04/22 22:16 Dose: 3 mg Metformin HCl (Metformin Hcl 1,000 Mg Tablet) 1,000 mg PO DAILY [facility] Last Admin: 10/05/22 08:53 Dose: 1,000 mg Metoprolol Succinate (Metoprolol Succinate Er 25 Mg Tab.Er.24h) 75 mg PO DAILY [facility]; Protocol Last Admin: 10/05/22 08:56 Dose: 75 mg Nitroglycerin (Nitroglycerin 0.4 Mg Tab.Subl) 0.4 mg SUBLINGUAL Q5M PRN PRN Reason: Chest Pain Nystatin (Nystatin Powder 15 Gm Bottle) 1 appl TOPICAL BID [facility]; Protocol Last Admin: 10/05/22 09:03 Dose: 1 appl Omeprazole (Omeprazole 20 Mg Capsule.Dr) 20 mg PO DAILY@0630 [facility] Last Admin: 10/05/22 05:39 Dose: 20 mg Ondansetron HCl (Ondansetron Odt 4 Mg Tab.Rapdis) 4 mg TRANSLINGU Q8H PRN PRN Reason: Nausea Oxycodone HCl (Oxycodone Hcl Immed Release 5 Mg Tablet) 5 mg PO Q6H PRN PRN Reason: Pain, Severe (Pain Scale 7-10) Last Admin: 10/05/22 16:48 Dose: 5 mg Phenytoin Sodium (Phenytoin Sodium Extended 100 Mg Capsule) 200 mg PO DAILY [facility] Last Admin: 10/05/22 08:53 Dose: 200 mg Phenytoin Sodium (Phenytoin Sodium Extended 100 Mg Capsule) 400 mg PO BEDTIME [facility] Last Admin: 10/05/22 21:51 Dose: 400 mg Quetiapine Fumarate (Quetiapine Fumarate 100 Mg Tablet) 100 mg PO BEDTIME PRN PRN Reason: Insomnia Quetiapine Fumarate (Quetiapine Fumarate 200 Mg Tablet) 200 mg PO BID [facility] Last Admin: 10/05/22 21:52 Dose: 200 mg Senna (Sennosides 8.6 Mg Tablet) 8.6 mg PO DAILY [facility] Last Admin: 10/05/22 08:53 Dose: 8.6 mg Simethicone (Simethicone 80 Mg Tab.Chew) 80 mg PO TID PRN PRN Reason: Indigestion Torsemide (Torsemide 20 Mg Tablet) 40 mg PO DAILY [facility]; Protocol Last Admin: 10/05/22 08:53 Dose: 40 mg Trazodone HCl (Trazodone Hcl 50 Mg Tablet) 50 mg PO BEDTIME MRX1 PRN PRN Reason: Insomnia Trazodone HCl (Trazodone Hcl 50 Mg Tablet) 50 mg PO BEDTIME [facility] Last Admin: 10/05/22 21:52 Dose: 50 mg Home Medications Medication Instructions Recorded Confirmed Last Taken Type apixaban 5 mg tablet (Eliquis) 1 tab PO BID 07/08/22 10/04/22 Unknown History hydroxyzine HCl 25 mg tablet 1 tab PO TID PRN Anxiety 07/08/22 10/04/22 Unknown History lorazepam 2 mg tablet 1 tab PO TID PRN Anxiety 07/08/22 10/04/22 Unknown History metformin 1,000 mg tablet 1 tab PO DAILY 07/08/22 10/04/22 Unknown History oxycodone 5 mg tablet 1 tab PO TID PRN Pain 07/08/22 10/04/22 Unknown History pantoprazole 40 mg tablet,delayed 1 tab PO DAILY@0630 07/08/22 10/04/22 Unknown History release phenytoin sodium extended 100 mg 200 mg PO DAILY 07/08/22 10/04/22 Unknown History capsule trazodone 50 mg tablet 1 tab PO BEDTIME 07/08/22 10/04/22 Unknown History acetaminophen 500 mg tablet 1,000 mg PO BID PRN Pain 07/09/22 10/04/22 Unknown History albuterol sulfate 90 mcg/actuation 2 puff inhalation Q4-6H PRN 07/09/22 10/04/22 Unknown History aerosol inhaler (ProAir HFA) Shortness Of Breath atorvastatin 80 mg tablet 1 tab PO DAILY 07/09/22 10/04/22 Unknown History digoxin 125 mcg (0.125 mg) tablet 1 tab PO Q2D 07/09/22 07/28/22 Unknown History duloxetine 30 mg capsule,delayed 30 mg PO DAILY 07/09/22 07/28/22 Unknown History release duloxetine 30 mg capsule,delayed 60 mg PO BID 07/09/22 10/04/22 Unknown History release fluticasone propionate 50 1 spray intranasal BID 07/09/22 10/04/22 Unknown History mcg/actuation nasal spray,suspension gabapentin 400 mg capsule 1 cap PO 5XD 07/09/22 10/04/22 Unknown History insulin glargine 100 unit/mL (3 20 unit subcut BEDTIME 07/09/22 07/28/22 Unknown History mL) subcutaneous pen (Lantus Solostar U-100 Insulin) insulin lispro 100 unit/mL 2 - 10 unit subcut TIDAC 07/09/22 10/04/22 Unknown History subcutaneous pen phenytoin sodium extended 100 mg 400 mg PO BEDTIME 07/09/22 10/04/22 Unknown History capsule quetiapine 100 mg tablet 1 tab PO BEDTIME PRN Insomnia 07/09/22 10/04/22 Unknown History quetiapine 200 mg tablet 1 tab PO BID 07/09/22 10/04/22 Unknown History torsemide 20 mg tablet 1 tab PO DAILY 07/09/22 10/04/22 Unknown History empagliflozin 10 mg tablet 10 mg PO DAILY 07/30/22 07/30/22 Unknown History (Jardiance) ferrous sulfate 324 mg (65 mg 324 mg PO DIRECTED 07/30/22 10/04/22 Unknown History iron) tablet,delayed release aripiprazole 5 mg tablet 7.5 mg PO DAILY 10/04/22 10/04/22 Unknown History calamine See Rx Instructions .Route .COMPLEX 10/04/22 10/04/22 Unknown History diltiazem HCl 120 mg capsule,24 120 mg PO DAILY@11 10/04/22 10/04/22 Unknown History hr,extended release lidocaine 5 % topical patch 1 patch topical DAILY 10/04/22 10/04/22 Unknown History melatonin 3 mg tablet 3 mg PO BEDTIME PRN Insomnia 10/04/22 10/04/22 Unknown History metoprolol succinate 25 mg 75 mg PO DAILY 10/04/22 10/04/22 Unknown History tablet,extended release 24 hr nitroglycerin 0.4 mg sublingual 0.4 mg sublingual Q5M PRN Chest 10/04/22 10/04/22 Unknown History tablet Pain nystatin 100,000 unit/gram topical 1 appl topical BID 10/04/22 10/04/22 Unknown History powder ondansetron 4 mg disintegrating 4 mg PO Q6H PRN Nausea 10/04/22 10/04/22 Unknown History tablet sennosides 8.6 mg tablet (senna) 8.6 mg PO DAILY 10/04/22 10/04/22 Unknown History simethicone 80 mg tablet 80 mg PO TID PRN Indigestion 10/04/22 10/04/22 Unknown History Results Labs 10/05/22 07:34 Labs: Laboratory Results - last 24 hr 10/05/22 10/05/22 10/05/22 07:34 08:05 16:47 Anion Gap 17 Estim Creat Clear Calc 122.4 Estimated GFR > 60 POC Glucose 150 H 134 H Fasting Glucose 150 H Calcium 9.6 D Total Bilirubin 0.5 AST 11 ALT 14 Alkaline Phosphatase 114 Total Protein 7.2 Albumin 4.0 Triglycerides 107 Cholesterol 134 LDL Cholesterol, Calc 66 HDL Cholesterol 47 Assessment and Plan Time Spent With Patient Time: Total time managing care of this patient today ____ minutes. Physical Exam Vital Signs: Last Vital Signs Temp 97.3 F 10/05/22 08:15 Pulse 119 H 10/05/22 08:15 Resp 18 10/05/22 08:15 BP 113/76 10/05/22 08:15 Pulse Ox 97 10/05/22 08:15 O2 Del Method Room Air 10/05/22 08:15 BMI result Body Mass Index 39.4
[2022-10-05 22:57] VITALS: BP 118/80; PULSE 130; RESP 20; O2SAT 93
--- NOTE | 2022-10-05 23:26 | PM.EVENT ---
Event Note Date of Service: 10/05/22 Event Note: attempted to see pt twice, 9 pm and 10:30 pm. Unable to, 1st attempt, pt roomate, having nausea, vomiting, and pt wantd to use the bathroon. second attempt was also garcia but pt at bedside cammode, with multiple staff helping pt. he was stable no acute complaint. one last attempt before 12, pt being placed on cpap for bedtime. will attempt for am Time Spent With Patient Time: Total time managing care of this patient today ____ minutes.
[2022-10-05 23:29] VITALS: PULSE 125; O2SAT 91
[2022-10-05] MEDS: QUEtiapine Fumarate 100 MG TABLET PO (23:51)
[2022-10-05 23:59] VITALS: PULSE 113; O2SAT 91
[2022-10-06 03:08] VITALS: PULSE 116; RESP 16; O2SAT 93
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
[2022-10-06 08:05] VITALS: BP 104/70; PULSE 119; RESP 20; TEMP 36.8; O2SAT 94
[2022-10-06 08:09] LABS: Glucose, Whole Blood 174 mg/dL (60-115)
--- NOTE | 2022-10-06 08:21 | P.PNPSI_ITS ---
Subjective Subjective Date of Service: 10/06/22 Reason For Visit: Major depressive disorder Subjective Notes: Conditional Voluntary Interim History: The nursing staff reported the patient slept with the CPAP machine son last night. He was compliant with treatment. On interview the patient reports dysphoria, we discussed with the patient the need to be assessed since he has lost a probably 200 lb in the last 2 months we will ask Physical therapy. Mental Status Exam Mental Status Exam Patient Appearance: Appropriate Patient Orientation: Person and Situation Level of Consciousness: Awake and Appropriate Patient Behavior: Guarded and Passive Mood Description: Withdrawn and Depressed Affect Description: Constricted Patient Cognition Impaired: No Ability to Follow Directions: Good Speech Pattern: Clear Hallucinations: None Delusions: Ideas of Reference Thought Process: Distracted and Evasive Thought Content: positive for [place] and positive for Circumstantial Judgement: Fair Diagnostics Vital Signs (24Hr): Vital Signs - 24 hr 10/05/22 22:57 10/05/22 19:30 10/05/22 23:59 Temperature 98.2 F Pulse Rate 130 H 122 H 113 H Respiratory Rate 20 20 Blood Pressure 118/80 108/80 Pulse Oximetry 93 95 91 L Oxygen Delivery Method Room Air CPAP 10/06/22 03:08 Temperature Pulse Rate 116 H Respiratory Rate 16 Blood Pressure Pulse Oximetry 93 Oxygen Delivery Method CPAP BMI result Body Mass Index 39.4 Labs 10/05/22 07:34 Labs: Laboratory Results - last 48 hr 10/04/22 10/05/22 10/05/22 22:20 07:34 08:05 Sodium 140 Potassium 4.9 D Chloride 99 Carbon Dioxide 29 Anion Gap 17 BUN 22 H Creatinine 0.93 Estim Creat Clear Calc 122.4 Estimated GFR > 60 POC Glucose 160 H 150 H Fasting Glucose 150 H Calcium 9.6 D Total Bilirubin 0.5 AST 11 ALT 14 Alkaline Phosphatase 114 Total Protein 7.2 Albumin 4.0 Triglycerides 107 Cholesterol 134 LDL Cholesterol, Calc 66 HDL Cholesterol 47 10/05/22 10/06/22 16:47 08:04 Sodium Potassium Chloride Carbon Dioxide Anion Gap BUN Creatinine Estim Creat Clear Calc Estimated GFR POC Glucose 134 H 174 H Fasting Glucose Calcium Total Bilirubin AST ALT Alkaline Phosphatase Total Protein Albumin Triglycerides Cholesterol LDL Cholesterol, Calc HDL Cholesterol Medications Medications Current Medications Acetaminophen (Acetaminophen 325 Mg Tablet) 650 mg PO Q6H PRN PRN Reason: Headache/Pain Mild Scale (1-3) Last Admin: 10/04/22 22:16 Dose: 650 mg Al Hydroxide/Mg Hydroxide (Magnesium Hydrox/Alum Hydrox 30 Ml Oral.Susp) 30 ml PO Q6H PRN PRN Reason: Heartburn/Nausea Albuterol Sulfate (Albuterol Sulfate 90 Mcg 8 Gm Inhaler) 2 puff INHALE Q4H PRN PRN Reason: Shortness Of Breath Apixaban (Apixaban 5 Mg Tablet) 5 mg PO BID [facility] Last Admin: 10/05/22 21:50 Dose: 5 mg Aripiprazole (Aripiprazole 5 Mg Tablet) 7.5 mg PO DAILY [facility] Last Admin: 10/05/22 08:54 Dose: 7.5 mg Atorvastatin Calcium (Atorvastatin Calcium 80 Mg Tablet) 80 mg PO DAILY [facility] Last Admin: 10/05/22 08:53 Dose: 80 mg Diltiazem HCl (Diltiazem Hcl Cd 120 Mg Cap.Er.Deg) 120 mg PO DAILY@11 [facility]; Protocol Last Admin: 10/05/22 21:53 Dose: 120 mg Duloxetine HCl (Duloxetine Hcl 60 Mg Capsule.) 60 mg PO BID [facility] Last Admin: 10/05/22 21:52 Dose: 60 mg Ferrous Sulfate (Ferrous Sulfate 324 Mg Tablet.) 324 mg PO MoWeFr@0900 [facility] Fluticasone Propionate (Fluticasone Propionate Nasal 16 Gm [place]) 1 spray NOSTRIL-B BID [facility] Last Admin: 10/05/22 23:18 Dose: Not Given Gabapentin (Gabapentin 400 Mg Capsule) 400 mg PO 5XD [facility] Last Admin: 10/06/22 07:35 Dose: Not Given Hydroxyzine HCl (Hydroxyzine Hcl 25 Mg Tablet) 25 mg PO Q6H PRN PRN Reason: Anxiety Last Admin: 10/05/22 05:50 Dose: 25 mg Hydroxyzine HCl (Hydroxyzine Hcl 25 Mg Tablet) 25 mg PO TID PRN PRN Reason: Anxiety Last Admin: 10/04/22 22:16 Dose: 25 mg Lidocaine (Lidocaine 4 % Patch Adh..Patch) 1 patch TRANSDERMA DAILY [facility] Last Admin: 10/05/22 09:03 Dose: Not Given Lorazepam (Lorazepam 1 Mg Tablet) 2 mg PO TID PRN PRN Reason: Anxiety Last Admin: 10/05/22 23:49 Dose: 2 mg Magnesium Hydroxide (Milk Of Magnesia 30 Ml Oral.Susp) 30 ml PO DAILY PRN PRN Reason: Constipation Melatonin (Melatonin 3 Mg Tablet) 3 mg PO BEDTIME PRN PRN Reason: Insomnia Last Admin: 10/04/22 22:16 Dose: 3 mg Metformin HCl (Metformin Hcl 1,000 Mg Tablet) 1,000 mg PO DAILY [facility] Last Admin: 10/05/22 08:53 Dose: 1,000 mg Metoprolol Succinate (Metoprolol Succinate Er 25 Mg Tab.Er.24h) 75 mg PO DAILY [facility]; Protocol Last Admin: 10/05/22 08:56 Dose: 75 mg Nitroglycerin (Nitroglycerin 0.4 Mg Tab.Subl) 0.4 mg SUBLINGUAL Q5M PRN PRN Reason: Chest Pain Nystatin (Nystatin Powder 15 Gm Bottle) 1 appl TOPICAL BID [facility]; Protocol Last Admin: 10/05/22 23:17 Dose: Not Given Omeprazole (Omeprazole 20 Mg Capsule.Dr) 20 mg PO DAILY@0630 [facility] Last Admin: 10/06/22 07:35 Dose: Not Given Ondansetron HCl (Ondansetron Odt 4 Mg Tab.Rapdis) 4 mg TRANSLINGU Q8H PRN PRN Reason: Nausea Oxycodone HCl (Oxycodone Hcl Immed Release 5 Mg Tablet) 5 mg PO Q6H PRN PRN Reason: Pain, Severe (Pain Scale 7-10) Last Admin: 10/05/22 23:49 Dose: 5 mg Phenytoin Sodium (Phenytoin Sodium Extended 100 Mg Capsule) 200 mg PO DAILY [facility] Last Admin: 10/05/22 08:53 Dose: 200 mg Phenytoin Sodium (Phenytoin Sodium Extended 100 Mg Capsule) 400 mg PO BEDTIME [facility] Last Admin: 10/05/22 21:51 Dose: 400 mg Quetiapine Fumarate (Quetiapine Fumarate 100 Mg Tablet) 100 mg PO BEDTIME PRN PRN Reason: Insomnia Last Admin: 10/05/22 23:51 Dose: 100 mg Quetiapine Fumarate (Quetiapine Fumarate 200 Mg Tablet) 200 mg PO BID [facility] Last Admin: 10/05/22 21:52 Dose: 200 mg Senna (Sennosides 8.6 Mg Tablet) 8.6 mg PO DAILY [facility] Last Admin: 10/05/22 08:53 Dose: 8.6 mg Simethicone (Simethicone 80 Mg Tab.Chew) 80 mg PO TID PRN PRN Reason: Indigestion Torsemide (Torsemide 20 Mg Tablet) 40 mg PO DAILY [facility]; Protocol Last Admin: 10/05/22 08:53 Dose: 40 mg Trazodone HCl (Trazodone Hcl 50 Mg Tablet) 50 mg PO BEDTIME MRX1 PRN PRN Reason: Insomnia Trazodone HCl (Trazodone Hcl 50 Mg Tablet) 50 mg PO BEDTIME [facility] Last Admin: 10/05/22 21:52 Dose: 50 mg Allergies Allergies Allergy/AdvReac Type Severity Reaction Status Date / Time aspirin Allergy Severe OCCASIONAL Verified 04/08/22 14:18 RASH / TONGUE SWELLING, Hives, throat swellig bee pollen [BEE STINGS] Allergy Severe ANAPHYLAXIS Verified 04/08/22 14:18 Penicillins Allergy Severe ANAPHYLAXIS Verified 04/08/22 14:18 povidone-iodine [Betadine] Allergy Severe Redness of Verified 04/08/22 14:18 Skin soap [Betadine] Allergy Severe Redness of Verified 04/08/22 14:18 Skin spider venom [SPIDER BITES] Allergy Severe Hives Verified 04/08/22 14:18 amoxicillin Allergy Intermediate Hives Verified 04/08/22 14:18 clindamycin Allergy Mild RASH Verified 04/08/22 14:18 latex [Latex] Allergy Mild RASH Verified 04/08/22 14:18 shrimp Allergy Hives Verified 06/21/22 11:48 bupropion [From WELLBUTRIN] AdvReac Severe SEIZURES Verified 04/08/22 14:18 adhesive tape AdvReac Mild Rash Verified 04/14/22 15:55 Assessment & Plan Assessment & Plan (1) Major depressive disorder: Status: Acute Code(s): F32.9 - Major depressive disorder, single episode, unspecified Plan The patient is a middle-aged male, morbidly obese with several medical comorbidities such as high blood pressure diabetes hypercholesterolemia morbid obesity, status post UT, CAD and depression initially admitted medically to [facility] and later on he verbalized exacerbation of depression with suicidal ideation. Plan 1. Gather collateral information. 2. Continue 15 minute checks, the patient is able to contract for safety. 3. Continue with medical workout. 4. Continue antidepressants Cymbalta 60 mg po bid, consider increase up to 90 mg po bid 5. PT consult Reason for continued inpatient stay Substantial Risk for: inability to function, rapid decompensation and med/psych decompensation Time Spent With Patient Time: Total time managing care of this patient today __20__ minutes.
[2022-10-06] MEDS: Phenytoin Sodium Extended 100 MG CAPSULE 200 MG PO (08:30)
[2022-10-06] MEDS: metFORMIN HCl 1,000 MG TABLET 1000 MG PO (08:30)
[2022-10-06] MEDS: Sennosides 8.6 MG TABLET PO (08:31)
[2022-10-06] MEDS: Atorvastatin Calcium 80 MG TABLET PO (08:31)
[2022-10-06] MEDS: Apixaban 5 MG TABLET PO ×2 (08:31→21:54)
[2022-10-06] MEDS: DULoxetine HCl 60 MG CAPSULE.DR PO ×2 (08:31→21:56)
[2022-10-06] MEDS: Metoprolol Succinate ER 25 MG TAB.ER.24H 75 MG PO (08:31)
[2022-10-06] MEDS: QUEtiapine Fumarate 200 MG TABLET PO ×2 (08:33→21:54)
[2022-10-06] MEDS: ARIPiprazole 5 MG TABLET 7.5 MG PO (08:34)
[2022-10-06] MEDS: Ferrous Sulfate 324 MG TABLET.DR PO (08:35)
[2022-10-06] MEDS: LORazepam 1 MG TABLET 2 MG PO ×3 (09:18→21:59)
[2022-10-06] MEDS: Gabapentin 400 MG CAPSULE PO ×4 (09:18→21:58)
[2022-10-06] MEDS: oxyCODONE HCl Immed Release 5 MG TABLET PO ×2 (09:18→17:45)
[2022-10-06] MEDS: Torsemide 20 MG TABLET 40 MG PO (10:11)
--- NOTE | 2022-10-06 11:47 | P.CONHOSP_ITS ---
the patient was seen and evaluated with JORDAN Rahman. I agree with his note, assessment and plan with the following. Rest of evaluations by PA note. History of Present Illness Data of Consult Service Date: 10/06/22 Primary Care Provider: Brown Parada MD [facility] Reason for consult: Admission H&P Pt is a 62-year-old male with a PMH significant for?paroxysmal AFib on Eliquis, insulin-dependent diabetes, mood disorder, chronic pain on opioids, HLD, HTN, and morbid obesity who is admitted to [facility] for worsening depression with SI. Medical consult for admission H&P. ?Patient currently complains of chronic bilateral ankle pain that he has had for years, left ankle apparently surgically fused, and of chronic bilateral knee pain s/p bilateral total knee arthroplasties. Patient also complains of chronic lower abdominal pain which he says he has been experiencing since March of last year. Otherwise has no acute medical complaints. Patient is well-known to the hospital and was recently staying in the ED overflow awaiting placement for rehab for a number of weeks in July. Has had multiple CT scans that were negative for acute abdomen. Review of Systems Review of Systems: Chronic bilateral knee pain Chronic bilateral ankle pain Chronic lower abdominal pain Patient has no acute medical complaints Yes all other systems are reviewed and are negative PMFSH Medical History Anxiety Arthritis Asthma Atrial fibrillation Atrial fibrillation with rapid ventricular response Bladder outlet obstruction Chronic back pain Coronary artery disease Diabetes mellitus, type 2 Fall Hypertension Multifactorial gait disorder Obesity PTSD (post-traumatic stress disorder) TIA (transient ischemic attack) Transient ischemic attack (TIA) Weakness Social History Household Members: None Housing: Apartment Do you presently have visiting nurse or other home services: Yes Alcohol intake: never Patient Tobacco Use Status: Never used Tobacco Smoked in Last 30 Days: No e-Cigarette/Vaping Use: Never Used Patient Interested in Nicotine Replacement: No Patient Given Instructions on How to Stop Smoking: No Second Hand Smoke Exposure: No Use of substances other than those prescribed or required for medical reasons: No Currently Displaying Signs/Symptoms of Drug Intoxication Withdrawal: No Any prior treatment program specific to substance use: No Have you been hit, kicked, punched, or otherwise hurt by someone within the past year? 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 Advance Directives: Yes Advance Directives on File: Yes Advance Directives Date on File: 07/27/22 Do you have thoughts of harming others: None Do you have a plan to hurt others: No Plan service: No Current occupational status: disabled Sexual orientation: Straight/Heterosexual Meds Allergies Allergy/AdvReac Type Severity Reaction Status Date / Time aspirin Allergy Severe OCCASIONAL Verified 04/08/22 14:18 RASH / TONGUE SWELLING, Hives, throat swellig bee pollen [BEE STINGS] Allergy Severe ANAPHYLAXIS Verified 04/08/22 14:18 Penicillins Allergy Severe ANAPHYLAXIS Verified 04/08/22 14:18 povidone-iodine [Betadine] Allergy Severe Redness of Verified 04/08/22 14:18 Skin soap [Betadine] Allergy Severe Redness of Verified 04/08/22 14:18 Skin spider venom [SPIDER BITES] Allergy Severe Hives Verified 04/08/22 14:18 amoxicillin Allergy Intermediate Hives Verified 04/08/22 14:18 clindamycin Allergy Mild RASH Verified 04/08/22 14:18 latex [Latex] Allergy Mild RASH Verified 04/08/22 14:18 shrimp Allergy Hives Verified 06/21/22 11:48 bupropion [From WELLBUTRIN] AdvReac Severe SEIZURES Verified 04/08/22 14:18 adhesive tape AdvReac Mild Rash Verified 04/14/22 15:55 Active Medications: Current Medications Acetaminophen (Acetaminophen 325 Mg Tablet) 650 mg PO Q6H PRN PRN Reason: Headache/Pain Mild Scale (1-3) Last Admin: 10/04/22 22:16 Dose: 650 mg Al Hydroxide/Mg Hydroxide (Magnesium Hydrox/Alum Hydrox 30 Ml Oral.Susp) 30 ml PO Q6H PRN PRN Reason: Heartburn/Nausea Albuterol Sulfate (Albuterol Sulfate 90 Mcg 8 Gm Inhaler) 2 puff INHALE Q4H PRN PRN Reason: Shortness Of Breath Apixaban (Apixaban 5 Mg Tablet) 5 mg PO BID [facility] Last Admin: 10/06/22 08:31 Dose: 5 mg Aripiprazole (Aripiprazole 5 Mg Tablet) 7.5 mg PO DAILY [facility] Last Admin: 10/06/22 08:34 Dose: 7.5 mg Atorvastatin Calcium (Atorvastatin Calcium 80 Mg Tablet) 80 mg PO DAILY [facility] Last Admin: 10/06/22 08:31 Dose: 80 mg Diltiazem HCl (Diltiazem Hcl Cd 120 Mg Cap.Er.Deg) 120 mg PO DAILY@11 [facility]; Protocol Last Admin: 10/05/22 21:53 Dose: 120 mg Duloxetine HCl (Duloxetine Hcl 60 Mg Capsule.Dr) 60 mg PO BID [facility] Last Admin: 10/06/22 08:31 Dose: 60 mg Ferrous Sulfate (Ferrous Sulfate 324 Mg Tablet.Dr) 324 mg PO MoWeFr@0900 [facility] Last Admin: 10/06/22 08:35 Dose: 324 mg Fluticasone Propionate (Fluticasone Propionate Nasal 16 Gm [place]) 1 spray NOSTRIL-B BID [facility] Last Admin: 10/06/22 09:51 Dose: Not Given Gabapentin (Gabapentin 400 Mg Capsule) 400 mg PO 5XD [facility] Last Admin: 10/06/22 09:18 Dose: 400 mg Hydroxyzine HCl (Hydroxyzine Hcl 25 Mg Tablet) 25 mg PO Q6H PRN PRN Reason: Anxiety Last Admin: 10/05/22 05:50 Dose: 25 mg Hydroxyzine HCl (Hydroxyzine Hcl 25 Mg Tablet) 25 mg PO TID PRN PRN Reason: Anxiety Last Admin: 10/04/22 22:16 Dose: 25 mg Lidocaine (Lidocaine 4 % Patch Adh..Patch) 1 patch TRANSDERMA DAILY [facility] Last Admin: 10/06/22 09:51 Dose: Not Given Lorazepam (Lorazepam 1 Mg Tablet) 2 mg PO TID PRN PRN Reason: Anxiety Last Admin: 10/06/22 09:18 Dose: 2 mg Magnesium Hydroxide (Milk Of Magnesia 30 Ml Oral.Susp) 30 ml PO DAILY PRN PRN Reason: Constipation Melatonin (Melatonin 3 Mg Tablet) 3 mg PO BEDTIME PRN PRN Reason: Insomnia Last Admin: 10/04/22 22:16 Dose: 3 mg Metformin HCl (Metformin Hcl 1,000 Mg Tablet) 1,000 mg PO DAILY [facility] Last Admin: 10/06/22 08:30 Dose: 1,000 mg Metoprolol Succinate (Metoprolol Succinate Er 25 Mg Tab.Er.24h) 75 mg PO DAILY [facility]; Protocol Last Admin: 10/06/22 08:31 Dose: 75 mg Nitroglycerin (Nitroglycerin 0.4 Mg Tab.Subl) 0.4 mg SUBLINGUAL Q5M PRN PRN Reason: Chest Pain Nystatin (Nystatin Powder 15 Gm Bottle) 1 appl TOPICAL BID [facility]; Protocol Last Admin: 10/06/22 09:51 Dose: Not Given Omeprazole (Omeprazole 20 Mg Capsule.Dr) 20 mg PO DAILY@0630 [facility] Last Admin: 10/06/22 07:35 Dose: Not Given Ondansetron HCl (Ondansetron Odt 4 Mg Tab.Rapdis) 4 mg TRANSLINGU Q8H PRN PRN Reason: Nausea Oxycodone HCl (Oxycodone Hcl Immed Release 5 Mg Tablet) 5 mg PO Q6H PRN PRN Reason: Pain, Severe (Pain Scale 7-10) Last Admin: 10/06/22 09:18 Dose: 5 mg Phenytoin Sodium (Phenytoin Sodium Extended 100 Mg Capsule) 200 mg PO DAILY [facility] Last Admin: 10/06/22 08:30 Dose: 200 mg Phenytoin Sodium (Phenytoin Sodium Extended 100 Mg Capsule) 400 mg PO BEDTIME [facility] Last Admin: 10/05/22 21:51 Dose: 400 mg Quetiapine Fumarate (Quetiapine Fumarate 100 Mg Tablet) 100 mg PO BEDTIME PRN PRN Reason: Insomnia Last Admin: 10/05/22 23:51 Dose: 100 mg Quetiapine Fumarate (Quetiapine Fumarate 200 Mg Tablet) 200 mg PO BID [facility] Last Admin: 10/06/22 08:33 Dose: 200 mg Senna (Sennosides 8.6 Mg Tablet) 8.6 mg PO DAILY [facility] Last Admin: 10/06/22 08:31 Dose: 8.6 mg Simethicone (Simethicone 80 Mg Tab.Chew) 80 mg PO TID PRN PRN Reason: Indigestion Torsemide (Torsemide 20 Mg Tablet) 40 mg PO DAILY [facility]; Protocol Last Admin: 10/06/22 10:11 Dose: 40 mg Trazodone HCl (Trazodone Hcl 50 Mg Tablet) 50 mg PO BEDTIME MRX1 PRN PRN Reason: Insomnia Trazodone HCl (Trazodone Hcl 50 Mg Tablet) 50 mg PO BEDTIME [facility] Last Admin: 10/05/22 21:52 Dose: 50 mg Home Medications Medication Instructions Recorded Confirmed Last Taken Type apixaban 5 mg tablet (Eliquis) 1 tab PO BID 07/08/22 10/04/22 Unknown History hydroxyzine HCl 25 mg tablet 1 tab PO TID PRN Anxiety 07/08/22 10/04/22 Unknown History lorazepam 2 mg tablet 1 tab PO TID PRN Anxiety 07/08/22 10/04/22 Unknown History metformin 1,000 mg tablet 1 tab PO DAILY 07/08/22 10/04/22 Unknown History oxycodone 5 mg tablet 1 tab PO TID PRN Pain 07/08/22 10/04/22 Unknown History pantoprazole 40 mg tablet,delayed 1 tab PO DAILY@0630 07/08/22 10/04/22 Unknown History release phenytoin sodium extended 100 mg 200 mg PO DAILY 07/08/22 10/04/22 Unknown History capsule trazodone 50 mg tablet 1 tab PO BEDTIME 07/08/22 10/04/22 Unknown History acetaminophen 500 mg tablet 1,000 mg PO BID PRN Pain 07/09/22 10/04/22 Unknown History albuterol sulfate 90 mcg/actuation 2 puff inhalation Q4-6H PRN 07/09/22 10/04/22 Unknown History aerosol inhaler (ProAir HFA) Shortness Of Breath atorvastatin 80 mg tablet 1 tab PO DAILY 07/09/22 10/04/22 Unknown History digoxin 125 mcg (0.125 mg) tablet 1 tab PO Q2D 07/09/22 07/28/22 Unknown History duloxetine 30 mg capsule,delayed 30 mg PO DAILY 07/09/22 07/28/22 Unknown History release duloxetine 30 mg capsule,delayed 60 mg PO BID 07/09/22 10/04/22 Unknown History release fluticasone propionate 50 1 spray intranasal BID 07/09/22 10/04/22 Unknown History mcg/actuation nasal spray,suspension gabapentin 400 mg capsule 1 cap PO 5XD 07/09/22 10/04/22 Unknown History insulin glargine 100 unit/mL (3 20 unit subcut BEDTIME 07/09/22 07/28/22 Unknown History mL) subcutaneous pen (Lantus Solostar U-100 Insulin) insulin lispro 100 unit/mL 2 - 10 unit subcut TIDAC 07/09/22 10/04/22 Unknown History subcutaneous pen phenytoin sodium extended 100 mg 400 mg PO BEDTIME 07/09/22 10/04/22 Unknown History capsule quetiapine 100 mg tablet 1 tab PO BEDTIME PRN Insomnia 07/09/22 10/04/22 Unknown History quetiapine 200 mg tablet 1 tab PO BID 07/09/22 10/04/22 Unknown History torsemide 20 mg tablet 1 tab PO DAILY 07/09/22 10/04/22 Unknown History empagliflozin 10 mg tablet 10 mg PO DAILY 07/30/22 07/30/22 Unknown History (Jardiance) ferrous sulfate 324 mg (65 mg 324 mg PO DIRECTED 07/30/22 10/04/22 Unknown History iron) tablet,delayed release aripiprazole 5 mg tablet 7.5 mg PO DAILY 10/04/22 10/04/22 Unknown History calamine See Rx Instructions .Route .COMPLEX 10/04/22 10/04/22 Unknown History diltiazem HCl 120 mg capsule,24 120 mg PO DAILY@11 10/04/22 10/04/22 Unknown History hr,extended release lidocaine 5 % topical patch 1 patch topical DAILY 10/04/22 10/04/22 Unknown History melatonin 3 mg tablet 3 mg PO BEDTIME PRN Insomnia 10/04/22 10/04/22 Unknown History metoprolol succinate 25 mg 75 mg PO DAILY 10/04/22 10/04/22 Unknown History tablet,extended release 24 hr nitroglycerin 0.4 mg sublingual 0.4 mg sublingual Q5M PRN Chest 10/04/22 10/04/22 Unknown History tablet Pain nystatin 100,000 unit/gram topical 1 appl topical BID 10/04/22 10/04/22 Unknown History powder ondansetron 4 mg disintegrating 4 mg PO Q6H PRN Nausea 10/04/22 10/04/22 Unknown History tablet sennosides 8.6 mg tablet (senna) 8.6 mg PO DAILY 10/04/22 10/04/22 Unknown His tory simethicone 80 mg tablet 80 mg PO TID PRN Indigestion 10/04/22 10/04/22 Unknown History Physical Exam Vital Signs and Narrative: Vital Signs: Last Vital Signs Temp 98.2 F 10/06/22 08:05 Pulse 119 H 10/06/22 08:05 Resp 20 10/06/22 08:05 BP 104/70 10/06/22 08:05 Pulse Ox 94 10/06/22 08:05 O2 Del Method Room Air 10/06/22 08:05 BMI result Body Mass Index 39.4 Constitutional: Alert, in no acute distress. Mental Status: Oriented to person, place and time. Eyes: Pupils are equal, round, and reactive to light. Ear, Nose, and Throat: Oropharynx clear, mucous membranes moist. Ears and nose without deformities. Trachea midline. Respiratory: Clear to auscultation bilaterally. No wheezing, rales, or rhonchi. Cardiovascular: Irregulalrly irregular rhythm, tachycardic. No murmurs, rubs, or gallops. Gastrointestinal: Abdomen soft, non-tender, non-distended. Normal bowel sounds. Neurologic: Cranial nerves II-XII are grossly intact bilaterally. No focal neurological deficits. Moves all extremities spontaneously. Global weakness noted, 3/5 strength of upper and lower extremities bilaterally. Skin: Warm, dry. Superficial abrasions to both knees. Musculoskeletal: No cyanosis or clubbing. Extremities: Chronic venous stasis dermatitis of lower extremities, right worse than left. Psychiatric: Normal mood and affect. Results Labs 10/05/22 07:34 Labs: Laboratory Results - last 24 hr 10/05/22 10/06/22 16:47 08:04 POC Glucose 134 H 174 H Assessment and Plan (1) Routine history and physical examination of adult: Status: Acute Plan Pt is a 62-year-old male with a PMH significant for?paroxysmal AFib on Eliquis, insulin-dependent diabetes, mood disorder, chronic pain on opioids, HLD, HTN, and morbid obesity who is admitted to [facility] for worsening depression with SI. Medical consult for admission H&P. ? Mood disorder Plan as per psychiatry Global weakness/deconditioning Patient states he is no longer able to use walker to ambulate, has lately been mostly confined to bed PT evaluation Chronic abdominal pain Patient has been complaining of lower abdominal pain since March of last year Patient has multiple CT scans that did negative for acute abdomen Continue home analgesics for pain management Chronic knee and ankle pain Continue analgesics for pain management HTN Continue antihypertensives Paroxysmal AFib Continue Eliquis, metoprolol, digoxin Insulin-dependent diabetes Continue home meds Diabetic diet Chronic hypoxic respiratory failure On home O2 4 L, continue CPAP at night Mild intermittent asthma without acute exacerbation Continue home inhalers Seizure disorder Continue phenytoin Chronic iron deficiency anemia Continue iron supplementation Thank you for allowing us to participate in the care of this patient. Signing off at this time. Please let us know if there are any acute complaints or questions. Time Spent With Patient Time: Total time managing care of this patient today ____ minutes.
[2022-10-06 12:10] LABS: Glucose, Whole Blood 143 mg/dL (60-115)
[2022-10-06 16:45] LABS: Glucose, Whole Blood 125 mg/dL (60-115)
[2022-10-06 18:00] VITALS: BP 128/77; PULSE 65; TEMP 36.7; O2SAT 97
[2022-10-06 21:32] LABS: Glucose, Whole Blood 142 mg/dL (60-115)
[2022-10-06] MEDS: traZODone HCL 50 MG TABLET PO (21:52)
[2022-10-06] MEDS: Phenytoin Sodium Extended 100 MG CAPSULE 400 MG PO (21:52)
[2022-10-06] MEDS: Acetaminophen 325 MG TABLET 650 MG PO (21:55)
[2022-10-06] MEDS: Melatonin 3 MG TABLET PO (21:58)
[2022-10-07] VITALS (7 sets, daily range): BP systolic 97–115; BP diastolic 57–70; PULSE 90–120; RESP 16–18; TEMP 36.1–36.9; O2SAT 92–97; BMI 37.9
--- NOTE | 2022-10-07 | ECG_ITS ---
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 Rate : 109 BPM Atrial Rate : 000 BPM P-R Int : 000 ms QRS Dur : 166 ms QT Int : 352 ms P-R-T Axes : 000 266 051 degrees QTc Int : 474 ms Atrial fibrillation with rapid ventricular response Right bundle branch block Inferior infarct (cited on or before 24-MAR-2020) Abnormal ECG When compared with ECG of 01-AUG-2022 11:31, No significant change was found Referred By: Lucinda Asif Electronically Signed By:NANCY HOLT MD
[2022-10-07] MEDS: Omeprazole 20 MG CAPSULE.DR PO (06:03)
[2022-10-07] MEDS: Gabapentin 400 MG CAPSULE PO ×5 (06:03→21:16)
[2022-10-07] MEDS: oxyCODONE HCl Immed Release 5 MG TABLET PO (06:10)
[2022-10-07] MEDS: LORazepam 1 MG TABLET 2 MG PO ×2 (06:10→21:21)
[2022-10-07] MEDS: Metoprolol Succinate ER 25 MG TAB.ER.24H 75 MG PO ×2 (08:29→21:17)
[2022-10-07] MEDS: Apixaban 5 MG TABLET PO ×2 (08:30→21:17)
[2022-10-07] MEDS: Phenytoin Sodium Extended 100 MG CAPSULE 200 MG PO (08:30)
[2022-10-07] MEDS: ARIPiprazole 5 MG TABLET 7.5 MG PO (08:31)
[2022-10-07] MEDS: Torsemide 20 MG TABLET 40 MG PO (08:31)
[2022-10-07] MEDS: DULoxetine HCl 60 MG CAPSULE.DR PO ×2 (08:33→21:20)
[2022-10-07] MEDS: Sennosides 8.6 MG TABLET PO (08:33)
[2022-10-07] MEDS: metFORMIN HCl 1,000 MG TABLET 1000 MG PO (08:33)
[2022-10-07] MEDS: Atorvastatin Calcium 80 MG TABLET PO (08:34)
[2022-10-07] MEDS: QUEtiapine Fumarate 200 MG TABLET PO ×2 (08:34→21:19)
[2022-10-07] MEDS: Naloxone HCl Nasal 4 MG SPRAY NOSTRILALT (10:27)
[2022-10-07 10:29] LABS: Glucose, Whole Blood 128 mg/dL (60-115)
--- NOTE | 2022-10-07 10:45 | P.EN_ITS ---
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 Given 4 mg IN naloxone and more awake, answering questions appropriately Noted to have tachycardia and soft BP for the past few days. Will check orthostatics, EKG, CBC/BMP/Tn. Give 1L NS empirically Will continue to follow Time Spent With Patient Time: Total time managing care of this patient today ____ minutes.
[2022-10-07] MEDS: 0.9 % Sodium Chloride 1,000 ML 125 ML IVCONT (10:57)
[2022-10-07 11:02] LABS: Hemoglobin 9.7 g/dl (14.0-18.0); Mean Corpuscular HGB Conc 29.4 g/dl (31.0-36.0); Mean Platelet Volume 9.4 fL (9.4-12.4); Platelet Count 280 X10*3/uL (160-400); Red Cell Distribution Width 17.4 % (11.0-16.0); White Blood Count 6.2 X10*3/uL (4.8-10.8)
[2022-10-07 11:19] LABS: Anion Gap 15 (12-20); Blood Urea Nitrogen 27 mg/dL (9-16); Carbon Dioxide 29 mmol/L (22-29); Chloride 96 mmol/L (96-108); Creatinine Clr Calc Pharmacy 91.4; Estimated Glomerular Filt Rate 60; Glucose Random 135 mg/dL (60-115); Potassium 3.6 mmol/L (3.3-5.1); Sodium 136 mmol/L (135-145)
[2022-10-07 11:28] LABS: Troponin-I High Sensitivity 19.7 ng/L (<3.5-35.0)
--- NOTE | 2022-10-07 11:46 | PC.NURSE ---
Addendum entered by Xavi Hadley RN 10/07/22 12:38: Dr Asif responded as well as psychiatry team. IV access obtained emergently on L index finger via 22g on the dirrection of Dr Asif. by Xavi Posadas RN. Original Note: Was called to assist in rm 184-2. PT had attempted to work with him, when she became concerned d/t lethargy, vitals and overall appearance. RR was called. Vitals @ ~ 10:25am HR 121; 119/89; 89%rm; POC 128mg/dl; temp 97.3 F.
[2022-10-07] MEDS: dilTIAZem HCL CD 120 MG CAP.ER.DEG PO (12:30)
[2022-10-07] MEDS: Metoprolol Tartrate 25 MG TABLET PO (12:31)
[2022-10-07 14:50] LABS: Troponin-I High Sensitivity 17.3 ng/L (<3.5-35.0)
--- NOTE | 2022-10-07 15:16 | HO.PSYCHPN ---
Subjective Subjective Date of Service: 10/07/22 Reason For Visit: Major depressive disorder Subjective Notes: Conditional Voluntary Interim History: The nursing staff reported the patient has been nonambulatory incontinent of stool and urine and he has refused to wear briefs. During the morning, the patient become unresponsive and his vital signs were stable so code was called and he was Narcan. He was placed on one-to-one for safety. On interview the patient reports that he is feeling better and he wants his Percocet back. We will assess in the next 24 hours Mental Status Exam Mental Status Exam Patient Appearance: Well Grooomed and Appropriate Patient Orientation: Person and Situation Level of Consciousness: Awake and Appropriate Patient Behavior: Guarded and Passive Mood Description: Withdrawn Affect Description: Constricted Patient Cognition Impaired: Yes Ability to Follow Directions: Good Speech Pattern: Clear Hallucinations: None Delusions: Not Present Thought Process: Distracted and Evasive Thought Content: positive for [place] and positive for Circumstantial Judgement: Fair Diagnostics Vital Signs (24Hr): Vital Signs - 24 hr 10/06/22 18:00 10/07/22 08:28 10/07/22 10:30 Temperature 98.1 F 97.0 F Pulse Rate 65 120 H 120 H Respiratory Rate 18 Blood Pressure 128/77 100/70 100/70 Pulse Oximetry 97 97 97 Oxygen Delivery Method Room Air Room Air 10/07/22 10:40 10/07/22 10:41 10/07/22 13:37 Temperature 97.2 F Pulse Rate 109 H 115 H 97 Respiratory Rate 16 Blood Pressure 113/57 L 97/61 104/57 L Pulse Oximetry 92 Oxygen Delivery Method Room Air BMI result Body Mass Index 37.9 Labs 10/07/22 10:53 10/07/22 10:53 Labs: Laboratory Results - last 48 hr 10/05/22 10/06/22 10/06/22 16:47 08:04 12:06 WBC RBC Hgb Hct MCV MCH MCHC RDW Plt Count MPV Absolute Nucleated RBC Nucleated RBC % (auto) Sodium Potassium Chloride Carbon Dioxide Anion Gap BUN Creatinine Estim Creat Clear Calc Estimated GFR POC Glucose 134 H 174 H 143 H Random Glucose Calcium Troponin I High Sens 10/06/22 10/06/22 10/07/22 16:37 21:26 10:24 WBC RBC Hgb Hct MCV MCH MCHC RDW Plt Count MPV Absolute Nucleated RBC Nucleated RBC % (auto) Sodium Potassium Chloride Carbon Dioxide Anion Gap BUN Creatinine Estim Creat Clear Calc Estimated GFR POC Glucose 125 H 142 H 128 H Random Glucose Calcium Troponin I High Sens 10/07/22 10/07/22 10/07/22 10:53 10:53 10:53 WBC 6.2 RBC 4.40 L Hgb 9.7 L Hct 33.0 L MCV 75.0 L MCH 22.0 L MCHC 29.4 L RDW 17.4 H Plt Count 280 MPV 9.4 Absolute Nucleated RBC 0.000 Nucleated RBC % (auto) 0.0 Sodium 136 Potassium 3.6 D Chloride 96 Carbon Dioxide 29 Anion Gap 15 BUN 27 H Creatinine 1.22 Estim Creat Clear Calc 91.4 Estimated GFR 60 POC Glucose Random Glucose 135 H Calcium 9.0 D Troponin I High Sens 19.7 D 10/07/22 13:48 WBC RBC Hgb Hct MCV MCH MCHC RDW Plt Count MPV Absolute Nucleated RBC Nucleated RBC % (auto) Sodium Potassium Chloride Carbon Dioxide Anion Gap BUN Creatinine Estim Creat Clear Calc Estimated GFR POC Glucose Random Glucose Calcium Troponin I High Sens 17.3 Medications Medications Current Medications Acetaminophen (Acetaminophen 325 Mg Tablet) 650 mg PO Q6H PRN PRN Reason: Headache/Pain Mild Scale (1-3) Last Admin: 10/06/22 21:55 Dose: 650 mg Al Hydroxide/Mg Hydroxide (Magnesium Hydrox/Alum Hydrox 30 Ml Oral.Susp) 30 ml PO Q6H PRN PRN Reason: Heartburn/Nausea Albuterol Sulfate (Albuterol Sulfate 90 Mcg 8 Gm Inhaler) 2 puff INHALE Q4H PRN PRN Reason: Shortness Of Breath Apixaban (Apixaban 5 Mg Tablet) 5 mg PO BID [facility] Last Admin: 10/07/22 08:30 Dose: 5 mg Aripiprazole (Aripiprazole 5 Mg Tablet) 7.5 mg PO DAILY [facility] Last Admin: 10/07/22 08:31 Dose: 7.5 mg Atorvastatin Calcium (Atorvastatin Calcium 80 Mg Tablet) 80 mg PO DAILY [facility] Last Admin: 10/07/22 08:34 Dose: 80 mg Diltiazem HCl (Diltiazem Hcl Cd 120 Mg Cap.Er.Deg) 120 mg PO DAILY@11 [facility]; Protocol Last Admin: 10/07/22 12:30 Dose: 120 mg Duloxetine HCl (Duloxetine Hcl 60 Mg Capsule.Dr) 60 mg PO BID [facility] Last Admin: 10/07/22 08:33 Dose: 60 mg Ferrous Sulfate (Ferrous Sulfate 324 Mg Tablet.) 324 mg PO MoWeFr@0900 [facility] Last Admin: 10/06/22 08:35 Dose: 324 mg Fluticasone Propionate (Fluticasone Propionate Nasal 16 Gm [place]) 1 spray NOSTRIL-B BID [facility] Last Admin: 10/07/22 08:34 Dose: Not Given Gabapentin (Gabapentin 400 Mg Capsule) 400 mg PO 5XD [facility] Last Admin: 10/07/22 15:00 Dose: 400 mg Hydroxyzine HCl (Hydroxyzine Hcl 25 Mg Tablet) 25 mg PO Q6H PRN PRN Reason: Anxiety Last Admin: 10/05/22 05:50 Dose: 25 mg Hydroxyzine HCl (Hydroxyzine Hcl 25 Mg Tablet) 25 mg PO TID PRN PRN Reason: Anxiety Last Admin: 10/04/22 22:16 Dose: 25 mg Sodium Chloride (Ns) 1,000 mls @ 125 mls/hr IVCONT .Q8H [facility] Stop: 10/07/22 18:44 Last Admin: 10/07/22 10:57 Dose: 125 mls/hr Lidocaine (Lidocaine 4 % Patch Adh..Patch) 1 patch TRANSDERMA DAILY [facility] Last Admin: 10/07/22 08:35 Dose: Not Given Lorazepam (Lorazepam 1 Mg Tablet) 2 mg PO TID PRN PRN Reason: Anxiety Last Admin: 10/07/22 06:10 Dose: 2 mg Magnesium Hydroxide (Milk Of Magnesia 30 Ml Oral.Susp) 30 ml PO DAILY PRN PRN Reason: Constipation Melatonin (Melatonin 3 Mg Tablet) 3 mg PO BEDTIME PRN PRN Reason: Insomnia Last Admin: 10/06/22 21:58 Dose: 3 mg Metformin HCl (Metformin Hcl 1,000 Mg Tablet) 1,000 mg PO DAILY [facility] Last Admin: 10/07/22 08:33 Dose: 1,000 mg Metoprolol Succinate (Metoprolol Succinate Er 25 Mg Tab.Er.24h) 75 mg PO BID [facility]; Protocol Nitroglycerin (Nitroglycerin 0.4 Mg Tab.Subl) 0.4 mg SUBLINGUAL Q5M PRN PRN Reason: Chest Pain Nystatin (Nystatin Powder 15 Gm Bottle) 1 appl TOPICAL BID [facility]; Protocol Last Admin: 10/07/22 08:34 Dose: Not Given Omeprazole (Omeprazole 20 Mg Capsule.Dr) 20 mg PO DAILY@0630 [facility] Last Admin: 10/07/22 06:03 Dose: 20 mg Ondansetron HCl (Ondansetron Odt 4 Mg Tab.Rapdis) 4 mg TRANSLINGU Q8H PRN PRN Reason: Nausea Phenytoin Sodium (Phenytoin Sodium Extended 100 Mg Capsule) 200 mg PO DAILY [facility] Last Admin: 10/07/22 08:30 Dose: 200 mg Phenytoin Sodium (Phenytoin Sodium Extended 100 Mg Capsule) 400 mg PO BEDTIME [facility] Last Admin: 10/06/22 21:52 Dose: 400 mg Quetiapine Fumarate (Quetiapine Fumarate 100 Mg Tablet) 100 mg PO BEDTIME PRN PRN Reason: Insomnia Last Admin: 10/05/22 23:51 Dose: 100 mg Quetiapine Fumarate (Quetiapine Fumarate 200 Mg Tablet) 200 mg PO BID [facility] Last Admin: 10/07/22 08:34 Dose: 200 mg Senna (Sennosides 8.6 Mg Tablet) 8.6 mg PO DAILY [facility] Last Admin: 10/07/22 08:33 Dose: 8.6 mg Simethicone (Simethicone 80 Mg Tab.Chew) 80 mg PO TID PRN PRN Reason: Indigestion Torsemide (Torsemide 20 Mg Tablet) 40 mg PO DAILY [facility]; Protocol Last Admin: 10/07/22 08:31 Dose: 40 mg Trazodone HCl (Trazodone Hcl 50 Mg Tablet) 50 mg PO BEDTIME MRX1 PRN PRN Reason: Insomnia Trazodone HCl (Trazodone Hcl 50 Mg Tablet) 50 mg PO BEDTIME [facility] Last Admin: 10/06/22 21:52 Dose: 50 mg Allergies Allergies Allergy/AdvReac Type Severity Reaction Status Date / Time aspirin Allergy Severe OCCASIONAL Verified 04/08/22 14:18 RASH / TONGUE SWELLING, Hives, throat swellig bee pollen [BEE STINGS] Allergy Severe ANAPHYLAXIS Verified 04/08/22 14:18 Penicillins Allergy Severe ANAPHYLAXIS Verified 04/08/22 14:18 povidone-iodine [Betadine] Allergy Severe Redness of Verified 04/08/22 14:18 Skin soap [Betadine] Allergy Severe Redness of Verified 04/08/22 14:18 Skin spider venom [SPIDER BITES] Allergy Severe Hives Verified 04/08/22 14:18 amoxicillin Allergy Intermediate Hives Verified 04/08/22 14:18 clindamycin Allergy Mild RASH Verified 04/08/22 14:18 latex [Latex] Allergy Mild RASH Verified 04/08/22 14:18 shrimp Allergy Hives Verified 06/21/22 11:48 bupropion [From WELLBUTRIN] AdvReac Severe SEIZURES Verified 04/08/22 14:18 adhesive tape AdvReac Mild Rash Verified 04/14/22 15:55 Assessment & Plan Assessment & Plan (1) Routine history and physical examination of adult: Status: Acute Code(s): Z00.00 - Encounter for general adult medical examination without abnormal findings Plan Pt is a 62-year-old male with a PMH significant for?paroxysmal AFib on Eliquis, insulin-dependent diabetes, mood disorder, chronic pain on opioids, HLD, HTN, and morbid obesity who is admitted to [facility] for worsening depression with SI. Medical consult for admission H&P. ? Mood disorder Plan as per psychiatry Global weakness/deconditioning Patient states he is no longer able to use walker to ambulate, has lately been mostly confined to bed PT evaluation Chronic abdominal pain Patient has been complaining of lower abdominal pain since March of last year Patient has multiple CT scans that did negative for acute abdomen Continue home analgesics for pain management Chronic knee and ankle pain Continue analgesics for pain management HTN Continue antihypertensives Paroxysmal AFib Continue Eliquis, metoprolol, digoxin Insulin-dependent diabetes Continue home meds Diabetic diet Chronic hypoxic respiratory failure On home O2 4 L, continue CPAP at night Mild intermittent asthma without acute exacerbation Continue home inhalers Seizure disorder Continue phenytoin Chronic iron deficiency anemia Continue iron supplementation Thank you for allowing us to participate in the care of this patient. Signing off at this time. Please let us know if there are any acute complaints or questions. Reason for continued inpatient stay Substantial Risk for: inability to function, rapid decompensation and med/psych decompensation Time Spent With Patient Time: Total time managing care of this patient today __20__ minutes.
[2022-10-07 16:53] LABS: Glucose, Whole Blood 149 mg/dL (60-115)
--- NOTE | 2022-10-07 18:28 | PC.NURSE ---
After RR pt remained very sleepy and slept throughout the afternoon. He has a hx of RADHA and desats while sleeping so CPAP was made available to him during his naps. He is pleasant to talk to and mostly cooperative with his care. He is bowel incontinent, and struggles to use urinal due to large pannus. He is resistant to wearing briefs or pants, and strongly prefers males assistance toileting. He is very large and deconditioned and is unable to turn in bed w/o assistance. Hospitalist would like IV access to remain until he finishes work up. @1735 he also stated that his R arm was bothering more than usual -Arm/hand appears swollen when compared to left. Radial pulse present and capillary refill brisk.
[2022-10-07 20:31] LABS: Glucose, Whole Blood 161 mg/dL (60-115)
[2022-10-07] MEDS: Acetaminophen 325 MG TABLET 650 MG PO (21:14)
[2022-10-07] MEDS: Phenytoin Sodium Extended 100 MG CAPSULE 400 MG PO (21:18)
[2022-10-07] MEDS: traZODone HCL 50 MG TABLET PO (21:20)
[2022-10-08] MEDS: Omeprazole 20 MG CAPSULE.DR PO (06:24)
[2022-10-08] MEDS: Gabapentin 400 MG CAPSULE PO ×5 (06:24→20:31)
[2022-10-08 08:05] VITALS: BP 95/63; PULSE 114; RESP 18; TEMP 35.6; O2SAT 95
[2022-10-08 08:05] LABS: Glucose, Whole Blood 125 mg/dL (60-115)
[2022-10-08] MEDS: Phenytoin Sodium Extended 100 MG CAPSULE 200 MG PO (08:35)
[2022-10-08] MEDS: Apixaban 5 MG TABLET PO ×2 (08:35→20:31)
[2022-10-08] MEDS: ARIPiprazole 5 MG TABLET 7.5 MG PO (08:35)
[2022-10-08 08:37] LABS: VBG Base Excess 9.7 mmol/L; VBG HCO3 34 mmol/L (22-26); VBG pCO2 46 mmHg; VBG pH 7.47 (7.32-7.43); VBG pO2 53 mmHg
[2022-10-08] MEDS: QUEtiapine Fumarate 200 MG TABLET PO ×2 (08:37→20:31)
[2022-10-08] MEDS: DULoxetine HCl 60 MG CAPSULE.DR PO ×2 (08:37→20:31)
[2022-10-08] MEDS: metFORMIN HCl 1,000 MG TABLET 1000 MG PO (08:37)
[2022-10-08 08:38] LABS: Venous Blood Gas Refer to POC result
[2022-10-08] MEDS: Ferrous Sulfate 324 MG TABLET.DR PO (08:38)
[2022-10-08] MEDS: Sennosides 8.6 MG TABLET PO (08:38)
[2022-10-08] MEDS: Atorvastatin Calcium 80 MG TABLET PO (08:39)
[2022-10-08] MEDS: LORazepam 1 MG TABLET 2 MG PO ×2 (09:28→20:36)
[2022-10-08 10:00] VITALS: BP 98/58
--- NOTE | 2022-10-08 12:03 | HO.PSYCHPN ---
Subjective Subjective Date of Service: 10/08/22 Reason For Visit: Major depressive disorder Subjective Notes: Conditional Voluntary Interim History: The nursing staff reported that he is not happy since we stopped his oxycodone. He had been hypotensive and some medications had to be stopped. He was Narcan yesterday. The occupational therapist that he scored 3.6 on his Patricio test and it is clear that he cannot be by himself at his own apartment. On interview we discussed about depression and the changes in his medical status and we will work on discharge planning accordingly. He was very upset that Oxycodone was discontinued due to altered mental status and he wants to be discharged. I offered him a 3 day notice letter. Mental Status Exam Mental Status Exam Patient Appearance: Well Grooomed and Appropriate Patient Orientation: Person and Situation Level of Consciousness: Awake and Appropriate Patient Behavior: Guarded and Passive Mood Description: Withdrawn Affect Description: Constricted Patient Cognition Impaired: Yes Ability to Follow Directions: Good Speech Pattern: Clear Hallucinations: None Delusions: Not Present Thought Process: Distracted and Evasive Thought Content: positive for [place] and positive for Circumstantial Judgement: Poor Diagnostics Vital Signs (24Hr): Vital Signs - 24 hr 10/07/22 13:37 10/07/22 22:54 10/07/22 18:00 Temperature 97.2 F 98.4 F Pulse Rate 97 118 H Respiratory Rate 16 16 18 Blood Pressure 104/57 L 115/65 Pulse Oximetry 92 95 Oxygen Delivery Method Room Air Room Air 10/08/22 08:05 Temperature 96.1 F L Pulse Rate 114 H Respiratory Rate 18 Blood Pressure 95/63 Pulse Oximetry 95 Oxygen Delivery Method BMI result Body Mass Index 37.9 Labs 10/07/22 10:53 10/07/22 10:53 Labs: Laboratory Results - last 48 hr 10/06/22 10/06/22 10/06/22 12:06 16:37 21:26 WBC RBC Hgb Hct MCV MCH MCHC RDW Plt Count MPV Absolute Nucleated RBC Nucleated RBC % (auto) VBG pH VBG pCO2 VBG pO2 VBG HCO3 VBG O2 Saturation VBG Base Excess Sodium Potassium Chloride Carbon Dioxide Anion Gap BUN Creatinine Estim Creat Clear Calc Estimated GFR POC Glucose 143 H 125 H 142 H Random Glucose Calcium Troponin I High Sens 10/07/22 10/07/22 10/07/22 10:24 10:53 10:53 WBC 6.2 RBC 4.40 L Hgb 9.7 L Hct 33.0 L MCV 75.0 L MCH 22.0 L MCHC 29.4 L RDW 17.4 H Plt Count 280 MPV 9.4 Absolute Nucleated RBC 0.000 Nucleated RBC % (auto) 0.0 VBG pH VBG pCO2 VBG pO2 VBG HCO3 VBG O2 Saturation VBG Base Excess Sodium 136 Potassium 3.6 D Chloride 96 Carbon Dioxide 29 Anion Gap 15 BUN 27 H Creatinine 1.22 Estim Creat Clear Calc 91.4 Estimated GFR 60 POC Glucose 128 H Random Glucose 135 H Calcium 9.0 D Troponin I High Sens 10/07/22 10/07/22 10/07/22 10:53 13:48 16:49 WBC RBC Hgb Hct MCV MCH MCHC RDW Plt Count MPV Absolute Nucleated RBC Nucleated RBC % (auto) VBG pH VBG pCO2 VBG pO2 VBG HCO3 VBG O2 Saturation VBG Base Excess Sodium Potassium Chloride Carbon Dioxide Anion Gap BUN Creatinine Estim Creat Clear Calc Estimated GFR POC Glucose 149 H Random Glucose Calcium Troponin I High Sens 19.7 D 17.3 10/07/22 10/08/22 10/08/22 20:27 07:59 08:30 WBC RBC Hgb Hct MCV MCH MCHC RDW Plt Count MPV Absolute Nucleated RBC Nucleated RBC % (auto) VBG pH 7.47 H VBG pCO2 46 VBG pO2 53 VBG HCO3 34 H VBG O2 Saturation 81.0 VBG Base Excess 9.7 Sodium Potassium Chloride Carbon Dioxide Anion Gap BUN Creatinine Estim Creat Clear Calc Estimated GFR POC Glucose 161 H 125 H Random Glucose Calcium Troponin I High Sens Medications Medications Current Medications Acetaminophen (Acetaminophen 325 Mg Tablet) 650 mg PO Q6H PRN PRN Reason: Headache/Pain Mild Scale (1-3) Last Admin: 10/07/22 21:14 Dose: 650 mg Al Hydroxide/Mg Hydroxide (Magnesium Hydrox/Alum Hydrox 30 Ml Oral.Susp) 30 ml PO Q6H PRN PRN Reason: Heartburn/Nausea Albuterol Sulfate (Albuterol Sulfate 90 Mcg 8 Gm Inhaler) 2 puff INHALE Q4H PRN PRN Reason: Shortness Of Breath Apixaban (Apixaban 5 Mg Tablet) 5 mg PO BID [facility] Last Admin: 10/08/22 08:35 Dose: 5 mg Aripiprazole (Aripiprazole 5 Mg Tablet) 7.5 mg PO DAILY [facility] Last Admin: 10/08/22 08:35 Dose: 7.5 mg Atorvastatin Calcium (Atorvastatin Calcium 80 Mg Tablet) 80 mg PO DAILY [facility] Last Admin: 10/08/22 08:39 Dose: 80 mg Diltiazem HCl (Diltiazem Hcl Cd 120 Mg Cap.Er.Deg) 120 mg PO DAILY@11 [facility]; Protocol Last Admin: 10/07/22 12:30 Dose: 120 mg Duloxetine HCl (Duloxetine Hcl 60 Mg Capsule.Dr) 60 mg PO BID [facility] Last Admin: 10/08/22 08:37 Dose: 60 mg Ferrous Sulfate (Ferrous Sulfate 324 Mg Tablet.Dr) 324 mg PO MoWeFr@0900 [facility] Last Admin: 10/08/22 08:38 Dose: 324 mg Fluticasone Propionate (Fluticasone Propionate Nasal 16 Gm [place]) 1 spray NOSTRIL-B BID [facility] Last Admin: 10/08/22 09:17 Dose: Not Given Gabapentin (Gabapentin 400 Mg Capsule) 400 mg PO 5XD [facility] Last Admin: 10/08/22 09:27 Dose: 400 mg Hydroxyzine HCl (Hydroxyzine Hcl 25 Mg Tablet) 25 mg PO Q6H PRN PRN Reason: Anxiety Last Admin: 10/05/22 05:50 Dose: 25 mg Hydroxyzine HCl (Hydroxyzine Hcl 25 Mg Tablet) 25 mg PO TID PRN PRN Reason: Anxiety Last Admin: 10/04/22 22:16 Dose: 25 mg Lidocaine (Lidocaine 4 % Patch Adh..Patch) 1 patch TRANSDERMA DAILY [facility] Last Admin: 10/08/22 09:18 Dose: Not Given Lorazepam (Lorazepam 1 Mg Tablet) 2 mg PO TID PRN PRN Reason: Anxiety Last Admin: 10/08/22 09:28 Dose: 2 mg Magnesium Hydroxide (Milk Of Magnesia 30 Ml Oral.Susp) 30 ml PO DAILY PRN PRN Reason: Constipation Melatonin (Melatonin 3 Mg Tablet) 3 mg PO BEDTIME PRN PRN Reason: Insomnia Last Admin: 10/06/22 21:58 Dose: 3 mg Metformin HCl (Metformin Hcl 1,000 Mg Tablet) 1,000 mg PO DAILY [facility] Last Admin: 10/08/22 08:37 Dose: 1,000 mg Metoprolol Succinate (Metoprolol Succinate Er 25 Mg Tab.Er.24h) 75 mg PO BID [facility]; Protocol Last Admin: 10/08/22 09:18 Dose: Not Given Nitroglycerin (Nitroglycerin 0.4 Mg Tab.Subl) 0.4 mg SUBLINGUAL Q5M PRN PRN Reason: Chest Pain Nystatin (Nystatin Powder 15 Gm Bottle) 1 appl TOPICAL BID [facility]; Protocol Last Admin: 10/08/22 09:19 Dose: Not Given Omeprazole (Omeprazole 20 Mg Capsule.Dr) 20 mg PO DAILY@0630 [facility] Last Admin: 10/08/22 06:24 Dose: 20 mg Ondansetron HCl (Ondansetron Odt 4 Mg Tab.Rapdis) 4 mg TRANSLINGU Q8H PRN PRN Reason: Nausea Phenytoin Sodium (Phenytoin Sodium Extended 100 Mg Capsule) 200 mg PO DAILY [facility] Last Admin: 10/08/22 08:35 Dose: 200 mg Phenytoin Sodium (Phenytoin Sodium Extended 100 Mg Capsule) 400 mg PO BEDTIME [facility] Last Admin: 10/07/22 21:18 Dose: 400 mg Quetiapine Fumarate (Quetiapine Fumarate 100 Mg Tablet) 100 mg PO BEDTIME PRN PRN Reason: Insomnia Last Admin: 10/05/22 23:51 Dose: 100 mg Quetiapine Fumarate (Quetiapine Fumarate 200 Mg Tablet) 200 mg PO BID [facility] Last Admin: 10/08/22 08:37 Dose: 200 mg Senna (Sennosides 8.6 Mg Tablet) 8.6 mg PO DAILY [facility] Last Admin: 10/08/22 08:38 Dose: 8.6 mg Simethicone (Simethicone 80 Mg Tab.Chew) 80 mg PO TID PRN PRN Reason: Indigestion Torsemide (Torsemide 20 Mg Tablet) 40 mg PO DAILY [facility]; Protocol Last Admin: 10/08/22 09:19 Dose: Not Given Trazodone HCl (Trazodone Hcl 50 Mg Tablet) 50 mg PO BEDTIME MRX1 PRN PRN Reason: Insomnia Trazodone HCl (Trazodone Hcl 50 Mg Tablet) 50 mg PO BEDTIME [facility] Last Admin: 10/07/22 21:20 Dose: 50 mg Allergies Allergies Allergy/AdvReac Type Severity Reaction Status Date / Time aspirin Allergy Severe OCCASIONAL Verified 04/08/22 14:18 RASH / TONGUE SWELLING, Hives, throat swellig bee pollen [BEE STINGS] Allergy Severe ANAPHYLAXIS Verified 04/08/22 14:18 Penicillins Allergy Severe ANAPHYLAXIS Verified 04/08/22 14:18 povidone-iodine [Betadine] Allergy Severe Redness of Verified 04/08/22 14:18 Skin soap [Betadine] Allergy Severe Redness of Verified 04/08/22 14:18 Skin spider venom [SPIDER BITES] Allergy Severe Hives Verified 04/08/22 14:18 amoxicillin Allergy Intermediate Hives Verified 04/08/22 14:18 clindamycin Allergy Mild RASH Verified 04/08/22 14:18 latex [Latex] Allergy Mild RASH Verified 04/08/22 14:18 shrimp Allergy Hives Verified 06/21/22 11:48 bupropion [From WELLBUTRIN] AdvReac Severe SEIZURES Verified 04/08/22 14:18 adhesive tape AdvReac Mild Rash Verified 04/14/22 15:55 Assessment & Plan Assessment & Plan (1) Routine history and physical examination of adult: Status: Acute Code(s): Z00.00 - Encounter for general adult medical examination without abnormal findings Plan Pt is a 62-year-old male with a PMH significant for?paroxysmal AFib on Eliquis, insulin-dependent diabetes, mood disorder, chronic pain on opioids, HLD, HTN, and morbid obesity who is admitted to [facility] for worsening depression with SI. Medical consult for admission H&P. ? Mood disorder Plan as per psychiatry Global weakness/deconditioning Patient states he is no longer able to use walker to ambulate, has lately been mostly confined to bed PT evaluation Chronic abdominal pain Patient has been complaining of lower abdominal pain since March of last year Patient has multiple CT scans that did negative for acute abdomen Continue home analgesics for pain management Chronic knee and ankle pain Continue analgesics for pain management HTN Continue antihypertensives Paroxysmal AFib Continue Eliquis, metoprolol, digoxin Insulin-dependent diabetes Continue home meds Diabetic diet Chronic hypoxic respiratory failure On home O2 4 L, continue CPAP at night Mild intermittent asthma without acute exacerbation Continue home inhalers Seizure disorder Continue phenytoin Chronic iron deficiency anemia Continue iron supplementation Plan 1. Gather collateral information. 2. Continue with Cymbalta 60 mg p.o. b.i.d.. 3. PT saw him and he would be suitable for suitable acute rehab. We will discuss also the possibility of long-term care. Reason for continued inpatient stay Substantial Risk for: inability to function, rapid decompensation and med/psych decompensation Time Spent With Patient Time: Total time managing care of this patient today __20__ minutes.
[2022-10-08] MEDS: Milk of Magnesia 30 ML ORAL.SUSP PO (15:52)
--- NOTE | 2022-10-08 18:07 | PC.NURSE ---
Patient reports that he needs to have a bowel movement. Pt given bed gardner. Pt had small bowel movement with noted constipation and rojelio care provided by four staff. Pt given PRN medication (SEE MAR). Approx 1630 Patient assisted into wheelchair via adrian lift. After dinner Pt reports that he wants to use the toilet. Pt was educated on safety risk and that he will be transferred back to bed via adrian lift so he can utilize the bedpan. Pt became agitated and reported to this RN you know what today is... you will be on the barrie list . Pt difficult to reason with. Pt safely transferred with 4 person assist and provided bedpan. Pt moved bowels and rojelio care provided. Pt verbally aggressive towards staff, Recommended 2 staff in patient room when providing care.
[2022-10-08 20:00] VITALS: BP 111/77; PULSE 112; RESP 18; TEMP 36.8; O2SAT 94
[2022-10-08] MEDS: traZODone HCL 50 MG TABLET PO (20:29)
[2022-10-08] MEDS: Metoprolol Succinate ER 25 MG TAB.ER.24H 75 MG PO (20:29)
[2022-10-08] MEDS: hydrOXYzine HCL 25 MG TABLET PO (20:30)
[2022-10-08] MEDS: Melatonin 3 MG TABLET PO (20:30)
[2022-10-08] MEDS: Phenytoin Sodium Extended 100 MG CAPSULE 400 MG PO (20:32)
[2022-10-08] MEDS: Fluticasone Propionate Nasal 16 GM SPRAY 1 SPRAY NOSTRIL-B (20:52)
[2022-10-08] MEDS: Nystatin Powder 15 GM BOTTLE 1 APPL TOPICAL (20:52)
[2022-10-08 20:57] VITALS: PULSE 104; RESP 18; O2SAT 94
[2022-10-08 21:07] LABS: Glucose, Whole Blood 143 mg/dL (60-115)
[2022-10-09] MEDS: Omeprazole 20 MG CAPSULE.DR PO (05:31)
[2022-10-09] MEDS: Gabapentin 400 MG CAPSULE PO ×4 (05:31→19:56)
[2022-10-09] MEDS: ARIPiprazole 5 MG TABLET 7.5 MG PO (08:37)
[2022-10-09] MEDS: Phenytoin Sodium Extended 100 MG CAPSULE 200 MG PO ×2 (08:37→19:56)
[2022-10-09] MEDS: Metoprolol Succinate ER 25 MG TAB.ER.24H 75 MG PO ×2 (08:38→19:56)
[2022-10-09] MEDS: Apixaban 5 MG TABLET PO ×2 (08:38→19:55)
[2022-10-09] MEDS: Sennosides 8.6 MG TABLET PO (08:39)
[2022-10-09] MEDS: DULoxetine HCl 60 MG CAPSULE.DR PO ×2 (08:39→19:56)
[2022-10-09] MEDS: Atorvastatin Calcium 80 MG TABLET PO (08:39)
[2022-10-09] MEDS: Torsemide 20 MG TABLET 40 MG PO (08:39)
[2022-10-09] MEDS: metFORMIN HCl 1,000 MG TABLET 1000 MG PO (08:39)
[2022-10-09] MEDS: QUEtiapine Fumarate 200 MG TABLET PO ×2 (08:39→19:56)
[2022-10-09 08:44] VITALS: BP 134/59; PULSE 76
[2022-10-09 08:58] LABS: Glucose, Whole Blood 184 mg/dL (60-115)
[2022-10-09] MEDS: hydrOXYzine HCL 25 MG TABLET PO ×2 (09:09→23:11)
[2022-10-09] MEDS: LORazepam 1 MG TABLET 2 MG PO ×2 (09:09→23:14)
[2022-10-09 10:52] VITALS: BP 93/55; PULSE 101
--- NOTE | 2022-10-09 11:52 | PM.EVENT ---
Documented by User: JORDAN Rahman 10/09/22 12:06 Event Note Date of Service: 10/09/22 Event Note: Follow-up for patient with medical consult for lethargy and decreased responsiveness after starting PT. CBC unremarkable, stable to previous. BUN and creatinine mildly elevated from previous. Troponins negative. POC elevated at 184. Orthostatics negative. EKG showed AFib with rate of 109 with are BP no evidence of ST elevations or depressions, similar to previous. Elevated BUN and creatinine Likely secondary to dehydration from decreased po intake Pt given IVF: 1L normal saline Encourage po intake of fluids Diabetes Pt's last POC elevated at 184 Started sliding scale insulin Pt with unverified 20 units of glargine at bedtime and Jardiance on med list Reconcile long-acting insulin and Jardiance, start/continue once verified Right hand pain X-rays show old healed fractures but negative for acute fracture Acetaminophen for pain Thank you for allowing us to participate in the care of this patient. Signing off at this time. Please let us know if there are any acute complaints or questions. Time Spent With Patient Time: Total time managing care of this patient today ____ minutes. Documented by User: Alec Garcias MD 10/09/22 14:29 Event Note Date of Service: 10/09/22 Event Note: Follow-up for patient with medical consult for lethargy and decreased responsiveness after starting PT. CBC unremarkable, stable to previous. BUN and creatinine mildly elevated from previous. Troponins negative. POC elevated at 184. Orthostatics negative. EKG showed AFib with rate of 109 with are BP no evidence of ST elevations or depressions, similar to previous. Elevated BUN and creatinine Likely secondary to dehydration from decreased po intake Pt given IVF: 1L normal saline Encourage po intake of fluids Diabetes Pt's last POC elevated at 184 Started sliding scale insulin Pt with unverified glargine at bedtime and Jardiance on med list Reconcile long-acting insulin and Jardiance, start/continue once verified Right hand pain X-rays show old healed fractures but negative for acute fracture Acetaminophen for pain Thank you for allowing us to participate in the care of this patient. Signing off at this time. Please let us know if there are any acute complaints or questions.
--- NOTE | 2022-10-09 16:44 | HO.PSYCHPN ---
Subjective Subjective Date of Service: 10/09/22 Reason For Visit: Major depressive disorder Interim History: Met with patient; discussed with team Patient reports right hand/wrist pain. Says it is difficult for him to open and close it and on focused exam patient appeared unable to clench his fist or open fingers wide. Says he is allergic to ibuprofen. Mental Status Exam Mental Status Exam Patient Appearance: Appropriate Patient Orientation: Person and Situation Level of Consciousness: Awake and Appropriate Patient Behavior: Guarded and Passive Mood Description: Withdrawn Affect Description: Constricted Patient Cognition Impaired: No Ability to Follow Directions: Good Speech Pattern: Clear Hallucinations: None Delusions: Not Present Thought Process: Linear Thought Content: positive for [place] and positive for Circumstantial Judgement: Fair Diagnostics Vital Signs (24Hr): Vital Signs - 24 hr 10/08/22 20:00 10/08/22 20:57 10/09/22 08:44 Temperature 98.3 F Pulse Rate 112 H 76 Respiratory Rate 18 18 Blood Pressure 111/77 134/59 L Pulse Oximetry 94 Oxygen Delivery Method Room Air 10/09/22 10:52 Temperature Pulse Rate 101 H Respiratory Rate Blood Pressure 93/55 L Pulse Oximetry Oxygen Delivery Method BMI result Body Mass Index 37.9 Labs 10/07/22 10:53 10/07/22 10:53 Labs: Laboratory Results - last 48 hr 10/07/22 10/07/22 10/08/22 16:49 20:27 07:59 VBG pH VBG pCO2 VBG pO2 VBG HCO3 VBG O2 Saturation VBG Base Excess POC Glucose 149 H 161 H 125 H 10/08/22 10/08/22 10/09/22 08:30 21:02 08:35 VBG pH 7.47 H VBG pCO2 46 VBG pO2 53 VBG HCO3 34 H VBG O2 Saturation 81.0 VBG Base Excess 9.7 POC Glucose 143 H 184 H Imaging Radiology Impressions: ITS Impressions Hand/Wrist X-Ray 10/07/22 22:07 IMPRESSION: Old healed fracture of the distal shaft of the fifth metacarpal bone and question old or healing fracture of the neck of the fourth metacarpal bone. No acute fracture. Medications Medications Current Medications Acetaminophen (Acetaminophen 325 Mg Tablet) 650 mg PO Q6H PRN PRN Reason: Headache/Pain Mild Scale (1-3) Last Admin: 05/04/23 21:14 Dose: 650 mg Al Hydroxide/Mg Hydroxide (Magnesium Hydrox/Alum Hydrox 30 Ml Oral.Susp) 30 ml PO Q6H PRN PRN Reason: Heartburn/Nausea Albuterol Sulfate (Albuterol Sulfate 90 Mcg 8 Gm Inhaler) 2 puff INHALE Q4H PRN PRN Reason: Shortness Of Breath Apixaban (Apixaban 5 Mg Tablet) 5 mg PO BID [facility] Last Admin: 10/09/22 08:38 Dose: 5 mg Aripiprazole (Aripiprazole 5 Mg Tablet) 7.5 mg PO DAILY [facility] Last Admin: 10/09/22 08:37 Dose: 7.5 mg Atorvastatin Calcium (Atorvastatin Calcium 80 Mg Tablet) 80 mg PO DAILY [facility] Last Admin: 10/09/22 08:39 Dose: 80 mg Diltiazem HCl (Diltiazem Hcl Cd 120 Mg Cap.Er.Deg) 120 mg PO DAILY@11 [facility]; Protocol Last Admin: 10/09/22 10:52 Dose: Not Given Duloxetine HCl (Duloxetine Hcl 60 Mg Capsule.) 60 mg PO BID [facility] Last Admin: 10/09/22 08:39 Dose: 60 mg Ferrous Sulfate (Ferrous Sulfate 324 Mg Tablet.) 324 mg PO MoWeFr@0900 [facility] Last Admin: 10/08/22 08:38 Dose: 324 mg Fluticasone Propionate (Fluticasone Propionate Nasal 16 Gm [place]) 1 spray NOSTRIL-B BID [facility] Last Admin: 10/09/22 08:39 Dose: Not Given Gabapentin (Gabapentin 400 Mg Capsule) 400 mg PO 5XD [facility] Last Admin: 10/09/22 13:02 Dose: Not Given Glucose (Glucose Gel 15 Gm Gel..Gram.) 15 gm PO Q15M PRN; Protocol PRN Reason: per Hypoglycemia Standing Ord. Hydroxyzine HCl (Hydroxyzine Hcl 25 Mg Tablet) 25 mg PO Q6H PRN PRN Reason: Anxiety Last Admin: 10/09/22 09:09 Dose: 25 mg Hydroxyzine HCl (Hydroxyzine Hcl 25 Mg Tablet) 25 mg PO TID PRN PRN Reason: Anxiety Last Admin: 10/04/22 22:16 Dose: 25 mg Dextrose (D10) 250 mls @ 750 mls/hr IV Q15M PRN; Protocol PRN Reason: per Hypoglycemia Standing Ord. Insulin Human Lispro (Insulin Lispro 100 Unit/Ml 3 Ml Vial) 0 unit SUBCUT QIDACHS [facility]; Protocol Last Admin: 10/09/22 16:18 Dose: Not Given Lidocaine (Lidocaine 4 % Patch Adh..Patch) 1 patch TRANSDERMA DAILY [facility] Last Admin: 10/09/22 08:40 Dose: Not Given Lorazepam (Lorazepam 1 Mg Tablet) 2 mg PO TID PRN PRN Reason: Anxiety Last Admin: 10/09/22 09:09 Dose: 2 mg Magnesium Hydroxide (Milk Of Magnesia 30 Ml Oral.Susp) 30 ml PO DAILY PRN PRN Reason: Constipation Last Admin: 10/08/22 15:52 Dose: 30 ml Melatonin (Melatonin 3 Mg Tablet) 3 mg PO BEDTIME PRN PRN Reason: Insomnia Last Admin: 10/08/22 20:30 Dose: 3 mg Metformin HCl (Metformin Hcl 1,000 Mg Tablet) 1,000 mg PO DAILY [facility] Last Admin: 10/09/22 08:39 Dose: 1,000 mg Metoprolol Succinate (Metoprolol Succinate Er 25 Mg Tab.Er.24h) 75 mg PO BID [facility]; Protocol Last Admin: 10/09/22 08:38 Dose: 75 mg Nitroglycerin (Nitroglycerin 0.4 Mg Tab.Subl) 0.4 mg SUBLINGUAL Q5M PRN PRN Reason: Chest Pain Nystatin (Nystatin Powder 15 Gm Bottle) 1 appl TOPICAL BID [facility]; Protocol Last Admin: 10/09/22 08:39 Dose: Not Given Omeprazole (Omeprazole 20 Mg Capsule.Dr) 20 mg PO DAILY@0630 [facility] Last Admin: 10/09/22 05:31 Dose: 20 mg Ondansetron HCl (Ondansetron Odt 4 Mg Tab.Rapdis) 4 mg TRANSLINGU Q8H PRN PRN Reason: Nausea Phenytoin Sodium (Phenytoin Sodium Extended 100 Mg Capsule) 200 mg PO DAILY [facility] Last Admin: 10/09/22 08:37 Dose: 200 mg Phenytoin Sodium (Phenytoin Sodium Extended 100 Mg Capsule) 400 mg PO BEDTIME [facility] Last Admin: 10/08/22 20:32 Dose: 400 mg Quetiapine Fumarate (Quetiapine Fumarate 100 Mg Tablet) 100 mg PO BEDTIME PRN PRN Reason: Insomnia Last Admin: 10/05/22 23:51 Dose: 100 mg Quetiapine Fumarate (Quetiapine Fumarate 200 Mg Tablet) 200 mg PO BID [facility] Last Admin: 10/09/22 08:39 Dose: 200 mg Senna (Sennosides 8.6 Mg Tablet) 8.6 mg PO DAILY [facility] Last Admin: 10/09/22 08:39 Dose: 8.6 mg Simethicone (Simethicone 80 Mg Tab.Chew) 80 mg PO TID PRN PRN Reason: Indigestion Torsemide (Torsemide 20 Mg Tablet) 40 mg PO DAILY [facility]; Protocol Last Admin: 10/09/22 08:39 Dose: 40 mg Trazodone HCl (Trazodone Hcl 50 Mg Tablet) 50 mg PO BEDTIME MRX1 PRN PRN Reason: Insomnia Trazodone HCl (Trazodone Hcl 50 Mg Tablet) 50 mg PO BEDTIME [facility] Last Admin: 10/08/22 20:29 Dose: 50 mg Allergies Allergies Allergy/AdvReac Type Severity Reaction Status Date / Time aspirin Allergy Severe OCCASIONAL Verified 04/08/22 14:18 RASH / TONGUE SWELLING, Hives, throat swellig bee pollen [BEE STINGS] Allergy Severe ANAPHYLAXIS Verified 04/08/22 14:18 Penicillins Allergy Severe ANAPHYLAXIS Verified 04/08/22 14:18 povidone-iodine [Betadine] Allergy Severe Redness of Verified 04/08/22 14:18 Skin soap [Betadine] Allergy Severe Redness of Verified 04/08/22 14:18 Skin spider venom [SPIDER BITES] Allergy Severe Hives Verified 04/08/22 14:18 amoxicillin Allergy Intermediate Hives Verified 04/08/22 14:18 clindamycin Allergy Mild RASH Verified 04/08/22 14:18 latex [Latex] Allergy Mild RASH Verified 04/08/22 14:18 shrimp Allergy Hives Verified 06/21/22 11:48 bupropion [From WELLBUTRIN] AdvReac Severe SEIZURES Verified 04/08/22 14:18 adhesive tape AdvReac Mild Rash Verified 04/14/22 15:55 Assessment & Plan Assessment & Plan (1) Routine history and physical examination of adult: Status: Acute Code(s): Z00.00 - Encounter for general adult medical examination without abnormal findings Plan Pt is a 62-year-old male with a PMH significant for?paroxysmal AFib on Eliquis, insulin-dependent diabetes, mood disorder, chronic pain on opioids, HLD, HTN, and morbid obesity who is admitted to [facility] for worsening depression with SI. Medical consult for admission H&P. ? HOSPITAL COURSE: 10/09 patient complains of right hand pain; will review notes; seems to have trouble opening and closing fist Mood disorder Plan as per psychiatry Global weakness/deconditioning Patient states he is no longer able to use walker to ambulate, has lately been mostly confined to bed PT evaluation Chronic abdominal pain Patient has been complaining of lower abdominal pain since March of last year Patient has multiple CT scans that did negative for acute abdomen Continue home analgesics for pain management Chronic knee and ankle pain Continue analgesics for pain management HTN Continue antihypertensives Paroxysmal AFib Continue Eliquis, metoprolol, digoxin Insulin-dependent diabetes Continue home meds Diabetic diet Chronic hypoxic respiratory failure On home O2 4 L, continue CPAP at night Mild intermittent asthma without acute exacerbation Continue home inhalers Seizure disorder Continue phenytoin Chronic iron deficiency anemia Continue iron supplementation Plan 1. Gather collateral information. 2. Continue with Cymbalta 60 mg p.o. b.i.d.. 3. PT saw him and he would be suitable for suitable acute rehab. We will discuss also the possibility of long-term care. Patient educated on: diagnosis and medical condition Informed Consent: understands Reason for continued inpatient stay Substantial Risk for: inability to function Time Spent With Patient Time: Total time managing care of this patient today ____ minutes.
[2022-10-09 18:09] VITALS: BP 109/59; PULSE 89
[2022-10-09] MEDS: Insulin Lispro 100 UNIT/ML 3 ML VIAL SUBCUT (19:55)
[2022-10-09] MEDS: traZODone HCL 50 MG TABLET PO (19:56)
[2022-10-09] MEDS: Phenytoin Sodium Extended 100 MG CAPSULE 400 MG PO (19:56)
[2022-10-09] MEDS: Nystatin Powder 15 GM BOTTLE 1 APPL TOPICAL (19:57)
[2022-10-09 20:32] LABS: Glucose, Whole Blood 187 mg/dL (60-115)
[2022-10-09] MEDS: Acetaminophen 325 MG TABLET 650 MG PO (23:10)
[2022-10-09] MEDS: Melatonin 3 MG TABLET PO (23:11)
[2022-10-09 23:36] VITALS: PULSE 106; O2SAT 94
[2022-10-10 06:00] VITALS: BP 123/67; PULSE 99; RESP 18; TEMP 36.8; O2SAT 94
[2022-10-10] MEDS: Gabapentin 400 MG CAPSULE PO ×5 (06:03→21:04)
[2022-10-10] MEDS: Omeprazole 20 MG CAPSULE.DR PO (06:03)
[2022-10-10 07:39] LABS: Glucose, Whole Blood 165 mg/dL (60-115)
[2022-10-10] MEDS: Phenytoin Sodium Extended 100 MG CAPSULE 200 MG PO (08:34)
[2022-10-10] MEDS: ARIPiprazole 5 MG TABLET 7.5 MG PO (08:35)
[2022-10-10] MEDS: metFORMIN HCl 1,000 MG TABLET 1000 MG PO (08:35)
[2022-10-10] MEDS: Torsemide 20 MG TABLET 40 MG PO (08:36)
[2022-10-10] MEDS: DULoxetine HCl 60 MG CAPSULE.DR PO ×2 (08:36→21:03)
[2022-10-10] MEDS: Apixaban 5 MG TABLET PO ×2 (08:36→21:03)
[2022-10-10] MEDS: Sennosides 8.6 MG TABLET PO (08:37)
[2022-10-10] MEDS: QUEtiapine Fumarate 200 MG TABLET PO ×2 (08:37→21:04)
[2022-10-10] MEDS: Atorvastatin Calcium 80 MG TABLET PO (08:37)
[2022-10-10] MEDS: Fluticasone Propionate Nasal 16 GM SPRAY 1 SPRAY NOSTRIL-B (08:38)
[2022-10-10] MEDS: Insulin Lispro 100 UNIT/ML 3 ML VIAL SUBCUT ×3 (08:41→21:00)
[2022-10-10] MEDS: Metoprolol Succinate ER 25 MG TAB.ER.24H 75 MG PO ×2 (08:41→21:03)
[2022-10-10] MEDS: LORazepam 1 MG TABLET 2 MG PO ×2 (09:05→21:15)
[2022-10-10 09:27] LABS: Glucose, Whole Blood 171 mg/dL (60-115)
[2022-10-10 11:18] LABS: Glucose, Whole Blood 185 mg/dL (60-115)
[2022-10-10] MEDS: dilTIAZem HCL CD 120 MG CAP.ER.DEG PO (11:59)
[2022-10-10 16:22] LABS: Glucose, Whole Blood 112 mg/dL (60-115)
[2022-10-10 18:00] VITALS: BP 126/70; PULSE 145; RESP 16; TEMP 37.4; O2SAT 93
--- NOTE | 2022-10-10 18:15 | HO.PSYCHPN ---
Subjective Subjective Date of Service: 10/10/22 Reason For Visit: Major depressive disorder Interim History: Met with patient; discussed with team who reports same presentation Patient continues to complain of right hand/wrist pain; insurance writer reviewed notes and x-ray reveals no fracture. However insurance writer wondering if possible Contracture and told patient would order consult Mental Status Exam Mental Status Exam Patient Appearance: Appropriate Patient Orientation: Person and Situation Level of Consciousness: Awake and Appropriate Patient Behavior: Guarded and Passive Mood Description: Withdrawn Affect Description: Constricted Patient Cognition Impaired: No Ability to Follow Directions: Good Speech Pattern: Clear Hallucinations: None Delusions: Not Present Thought Process: Linear Thought Content: positive for [place] and positive for Circumstantial Judgement: Fair Diagnostics Vital Signs (24Hr): Vital Signs - 24 hr 10/10/22 06:00 Temperature 98.2 F Pulse Rate 99 Respiratory Rate 18 Blood Pressure 123/67 Pulse Oximetry 94 Oxygen Delivery Method Room Air BMI result Body Mass Index 37.9 Labs 10/07/22 10:53 10/07/22 10:53 Labs: Laboratory Results - last 48 hr 10/08/22 10/09/22 10/09/22 21:02 08:35 19:41 POC Glucose 143 H 184 H 187 H 10/10/22 10/10/22 10/10/22 07:32 08:32 11:13 POC Glucose 165 H 171 H 185 H 10/10/22 16:18 POC Glucose 112 Imaging Radiology Impressions: ITS Impressions Hand/Wrist X-Ray 10/07/22 22:07 IMPRESSION: Old healed fracture of the distal shaft of the fifth metacarpal bone and question old or healing fracture of the neck of the fourth metacarpal bone. No acute fracture. Medications Medications Current Medications Acetaminophen (Acetaminophen 325 Mg Tablet) 650 mg PO Q6H PRN PRN Reason: Headache/Pain Mild Scale (1-3) Last Admin: 10/09/22 23:10 Dose: 650 mg Al Hydroxide/Mg Hydroxide (Magnesium Hydrox/Alum Hydrox 30 Ml Oral.Susp) 30 ml PO Q6H PRN PRN Reason: Heartburn/Nausea Albuterol Sulfate (Albuterol Sulfate 90 Mcg 8 Gm Inhaler) 2 puff INHALE Q4H PRN PRN Reason: Shortness Of Breath Apixaban (Apixaban 5 Mg Tablet) 5 mg PO BID [facility] Last Admin: 10/10/22 08:36 Dose: 5 mg Aripiprazole (Aripiprazole 5 Mg Tablet) 7.5 mg PO DAILY [facility]PL[facility] Last Admin: 10/10/22 08:35 Dose: 7.5 mg Atorvastatin Calcium (Atorvastatin Calcium 80 Mg Tablet) 80 mg PO DAILY [facility] Last Admin: 10/10/22 08:37 Dose: 80 mg Diltiazem HCl (Diltiazem Hcl Cd 120 Mg Cap.Er.Deg) 120 mg PO DAILY@11 [facility]; Protocol Last Admin: 10/10/22 11:59 Dose: 120 mg Duloxetine HCl (Duloxetine Hcl 60 Mg Capsule.Dr) 60 mg PO BID [facility] Last Admin: 10/10/22 08:36 Dose: 60 mg Ferrous Sulfate (Ferrous Sulfate 324 Mg Tablet.Dr) 324 mg PO MoWeFr@0900 [facility]PL[facility]ED [facility] Last Admin: 10/08/22 08:38 Dose: 324 mg Fluticasone Propionate (Fluticasone Propionate Nasal 16 Gm [place]) 1 spray NOSTRIL-B BID [facility]PL[facility] Last Admin: 10/10/22 08:38 Dose: 1 spray Gabapentin (Gabapentin 400 Mg Capsule) 400 mg PO 5XD [facility]PLAC[facility] Last Admin: 10/10/22 17:25 Dose: 400 mg Glucose (Glucose Gel 15 Gm Gel..Gram.) 15 gm PO Q15M PRN; Protocol PRN Reason: per Hypoglycemia Standing Ord. Hydroxyzine HCl (Hydroxyzine Hcl 25 Mg Tablet) 25 mg PO Q6H PRN PRN Reason: Anxiety Last Admin: 10/09/22 23:11 Dose: 25 mg Hydroxyzine HCl (Hydroxyzine Hcl 25 Mg Tablet) 25 mg PO TID PRN PRN Reason: Anxiety Last Admin: 10/04/22 22:16 Dose: 25 mg Dextrose (D10) 250 mls @ 750 mls/hr IV Q15M PRN; Protocol PRN Reason: per Hypoglycemia Standing Ord. Insulin Human Lispro (Insulin Lispro 100 Unit/Ml 3 Ml Vial) 0 unit SUBCUT QIDACHS REPLACED BY [facility]; Protocol Last Admin: 10/10/22 16:21 Dose: Not Given Lidocaine (Lidocaine 4 % Patch Adh..Patch) 1 patch TRANSDERMA DAILY [facility] Last Admin: 10/10/22 08:49 Dose: Not Given Lorazepam (Lorazepam 1 Mg Tablet) 2 mg PO TID PRN PRN Reason: Anxiety Last Admin: 10/10/22 09:05 Dose: 2 mg Magnesium Hydroxide (Milk Of Magnesia 30 Ml Oral.Susp) 30 ml PO DAILY PRN PRN Reason: Constipation Last Admin: 10/08/22 15:52 Dose: 30 ml Melatonin (Melatonin 3 Mg Tablet) 3 mg PO BEDTIME PRN PRN Reason: Insomnia Last Admin: 10/09/22 23:11 Dose: 3 mg Metformin HCl (Metformin Hcl 1,000 Mg Tablet) 1,000 mg PO DAILY [facility] Last Admin: 10/10/22 08:35 Dose: 1,000 mg Metoprolol Succinate (Metoprolol Succinate Er 25 Mg Tab.Er.24h) 75 mg PO BID [facility]; Protocol Last Admin: 10/10/22 08:41 Dose: 75 mg Nitroglycerin (Nitroglycerin 0.4 Mg Tab.Subl) 0.4 mg SUBLINGUAL Q5M PRN PRN Reason: Chest Pain Nystatin (Nystatin Powder 15 Gm Bottle) 1 appl TOPICAL BID [facility]; Protocol Last Admin: 10/10/22 08:49 Dose: Not Given Omeprazole (Omeprazole 20 Mg Capsule.Dr) 20 mg PO DAILY@0630 [facility] Last Admin: 10/10/22 06:03 Dose: 20 mg Ondansetron HCl (Ondansetron Odt 4 Mg Tab.Rapdis) 4 mg TRANSLINGU Q8H PRN PRN Reason: Nausea Phenytoin Sodium (Phenytoin Sodium Extended 100 Mg Capsule) 200 mg PO DAILY [facility] Last Admin: 10/10/22 08:34 Dose: 200 mg Phenytoin Sodium (Phenytoin Sodium Extended 100 Mg Capsule) 400 mg PO BEDTIME [facility]PL[facility] Last Admin: 10/09/22 19:56 Dose: 400 mg Quetiapine Fumarate (Quetiapine Fumarate 100 Mg Tablet) 100 mg PO BEDTIME PRN PRN Reason: Insomnia Last Admin: 10/05/22 23:51 Dose: 100 mg Quetiapine Fumarate (Quetiapine Fumarate 200 Mg Tablet) 200 mg PO BID [facility] Last Admin: 10/10/22 08:37 Dose: 200 mg Senna (Sennosides 8.6 Mg Tablet) 8.6 mg PO DAILY [facility]PL[facility] Last Admin: 10/10/22 08:37 Dose: 8.6 mg Simethicone (Simethicone 80 Mg Tab.Chew) 80 mg PO TID PRN PRN Reason: Indigestion Torsemide (Torsemide 20 Mg Tablet) 40 mg PO DAILY [facility]; Protocol Last Admin: 10/10/22 08:36 Dose: 40 mg Trazodone HCl (Trazodone Hcl 50 Mg Tablet) 50 mg PO BEDTIME MRX1 PRN PRN Reason: Insomnia Trazodone HCl (Trazodone Hcl 50 Mg Tablet) 50 mg PO BEDTIME REPLACED BY [facility] Last Admin: 10/09/22 19:56 Dose: 50 mg Allergies Allergies Allergy/AdvReac Type Severity Reaction Status Date / Time aspirin Allergy Severe OCCASIONAL Verified 04/08/22 14:18 RASH / TONGUE SWELLING, Hives, throat swellig bee pollen [BEE STINGS] Allergy Severe ANAPHYLAXIS Verified 04/08/22 14:18 Penicillins Allergy Severe ANAPHYLAXIS Verified 04/08/22 14:18 povidone-iodine [Betadine] Allergy Severe Redness of Verified 04/08/22 14:18 Skin soap [Betadine] Allergy Severe Redness of Verified 04/08/22 14:18 Skin spider venom [SPIDER BITES] Allergy Severe Hives Verified 04/08/22 14:18 amoxicillin Allergy Intermediate Hives Verified 04/08/22 14:18 clindamycin Allergy Mild RASH Verified 04/08/22 14:18 latex [Latex] Allergy Mild RASH Verified 04/08/22 14:18 shrimp Allergy Hives Verified 06/21/22 11:48 bupropion [From WELLBUTRIN] AdvReac Severe SEIZURES Verified 04/08/22 14:18 adhesive tape AdvReac Mild Rash Verified 04/14/22 15:55 Assessment & Plan Assessment & Plan (1) Routine history and physical examination of adult: Status: Acute Code(s): Z00.00 - Encounter for general adult medical examination without abnormal findings Plan Pt is a 62-year-old male with a PMH significant for?paroxysmal AFib on Eliquis, insulin-dependent diabetes, mood disorder, chronic pain on opioids, HLD, HTN, and morbid obesity who is admitted to [facility] for worsening depression with SI. Medical consult for admission H&P. ? HOSPITAL COURSE: 10/09 patient complains of right hand pain; will review notes; seems to have trouble opening and closing fist 10/10 ordered OT consult to examine/assessed right wrist/hand Mood disorder Plan as per psychiatry Global weakness/deconditioning Patient states he is no longer able to use walker to ambulate, has lately been mostly confined to bed PT evaluation Chronic abdominal pain Patient has been complaining of lower abdominal pain since March of last year Patient has multiple CT scans that did negative for acute abdomen Continue home analgesics for pain management Chronic knee and ankle pain Continue analgesics for pain management HTN Continue antihypertensives Paroxysmal AFib Continue Eliquis, metoprolol, digoxin Insulin-dependent diabetes Continue home meds Diabetic diet Chronic hypoxic respiratory failure On home O2 4 L, continue CPAP at night Mild intermittent asthma without acute exacerbation Continue home inhalers Seizure disorder Continue phenytoin Chronic iron deficiency anemia Continue iron supplementation Plan 1. Gather collateral information. 2. Continue with Cymbalta 60 mg p.o. b.i.d.. 3. PT saw him and he would be suitable for suitable acute rehab. We will discuss also the possibility of long-term care. Patient educated on: medical condition Informed Consent: understands Reason for continued inpatient stay Substantial Risk for: inability to function Time Spent With Patient Time: Total time managing care of this patient today ____ minutes.
[2022-10-10 20:17] LABS: Glucose, Whole Blood 190 mg/dL (60-115)
[2022-10-10 21:00] VITALS: PULSE 124; RESP 18; O2SAT 92
[2022-10-10] MEDS: Phenytoin Sodium Extended 100 MG CAPSULE 400 MG PO (21:02)
[2022-10-10] MEDS: traZODone HCL 50 MG TABLET PO (21:05)
[2022-10-10 21:14] VITALS: RESP 18
[2022-10-10] MEDS: QUEtiapine Fumarate 100 MG TABLET PO (22:28)
[2022-10-10] MEDS: hydrOXYzine HCL 25 MG TABLET PO (22:29)
[2022-10-11 05:15] VITALS: PULSE 78; RESP 16; O2SAT 92
[2022-10-11 06:00] VITALS: BP 117/68; PULSE 94; RESP 18; TEMP 36.6; O2SAT 94
[2022-10-11] MEDS: Gabapentin 400 MG CAPSULE PO ×5 (06:27→20:30)
[2022-10-11] MEDS: Omeprazole 20 MG CAPSULE.DR PO (06:27)
[2022-10-11 07:55] LABS: Glucose, Whole Blood 160 mg/dL (60-115)
--- NOTE | 2022-10-11 08:19 | P.PNPSI_ITS ---
Subjective Subjective Date of Service: 10/11/22 Reason For Visit: Major depressive disorder Subjective Notes: Conditional Voluntary Interim History: The nursing staff reported the patient had been compliant with treatment, has requested opioids but so far we have stop opiates due to hypotension. He sometimes yesterday. Mobility had been a problem but he was seen yesterday he could in moved with help. He slept 4 hours. On interview the patient denies suicidal ideation he reports some anxiety and depression. Mental Status Exam Mental Status Exam Patient Appearance: Appropriate Patient Orientation: Person and Situation Level of Consciousness: Awake and Appropriate Patient Behavior: Guarded and Passive Mood Description: Withdrawn Affect Description: Constricted Patient Cognition Impaired: No Ability to Follow Directions: Good Speech Pattern: Clear Hallucinations: None Delusions: Not Present Thought Process: Linear Thought Content: positive for [place] and positive for Circumstantial Judgement: Fair Diagnostics Vital Signs (24Hr): Vital Signs - 24 hr 10/10/22 21:14 10/10/22 18:00 10/10/22 21:00 Temperature 99.3 F Pulse Rate 145 H 124 H Respiratory Rate 18 16 18 Blood Pressure 126/70 Pulse Oximetry 93 92 Oxygen Delivery Method Room Air Room Air 10/11/22 05:15 Temperature Pulse Rate 78 Respiratory Rate 16 Blood Pressure Pulse Oximetry 92 Oxygen Delivery Method Room Air BMI result Body Mass Index 37.9 Labs 10/07/22 10:53 10/07/22 10:53 Labs: Laboratory Results - last 48 hr 10/09/22 10/09/22 10/10/22 08:35 19:41 07:32 POC Glucose 184 H 187 H 165 H 10/10/22 10/10/22 10/10/22 08:32 11:13 16:18 POC Glucose 171 H 185 H 112 10/10/22 10/11/22 20:06 07:50 POC Glucose 190 H 160 H Imaging Radiology Impressions: ITS Impressions Hand/Wrist X-Ray 10/07/22 22:07 IMPRESSION: Old healed fracture of the distal shaft of the fifth metacarpal bone and question old or healing fracture of the neck of the fourth metacarpal bone. No acute fracture. Medications Medications Current Medications Acetaminophen (Acetaminophen 325 Mg Tablet) 650 mg PO Q6H PRN PRN Reason: Headache/Pain Mild Scale (1-3) Last Admin: 10/09/22 23:10 Dose: 650 mg Al Hydroxide/Mg Hydroxide (Magnesium Hydrox/Alum Hydrox 30 Ml Oral.Susp) 30 ml PO Q6H PRN PRN Reason: Heartburn/Nausea Albuterol Sulfate (Albuterol Sulfate 90 Mcg 8 Gm Inhaler) 2 puff INHALE Q4H PRN PRN Reason: Shortness Of Breath Apixaban (Apixaban 5 Mg Tablet) 5 mg PO BID [facility] Last Admin: 10/10/22 21:03 Dose: 5 mg Aripiprazole (Aripiprazole 5 Mg Tablet) 7.5 mg PO DAILY [facility] Last Admin: 10/10/22 08:35 Dose: 7.5 mg Atorvastatin Calcium (Atorvastatin Calcium 80 Mg Tablet) 80 mg PO DAILY [facility] Last Admin: 10/10/22 08:37 Dose: 80 mg Diltiazem HCl (Diltiazem Hcl Cd 120 Mg Cap.Er.Deg) 120 mg PO DAILY@11 [facility]; Protocol Last Admin: 10/10/22 11:59 Dose: 120 mg Duloxetine HCl (Duloxetine Hcl 60 Mg Capsule.) 60 mg PO BID [facility] Last Admin: 10/10/22 21:03 Dose: 60 mg Ferrous Sulfate (Ferrous Sulfate 324 Mg Tablet.) 324 mg PO MoWeFr@0900 [facility] Last Admin: 10/08/22 08:38 Dose: 324 mg Fluticasone Propionate (Fluticasone Propionate Nasal 16 Gm [place]) 1 spray NOSTRIL-B BID [facility] Last Admin: 10/10/22 22:31 Dose: Not Given Gabapentin (Gabapentin 400 Mg Capsule) 400 mg PO 5XD [facility] Last Admin: 10/11/22 06:27 Dose: 400 mg Glucose (Glucose Gel 15 Gm Gel..Gram.) 15 gm PO Q15M PRN; Protocol PRN Reason: per Hypoglycemia Standing Ord. Hydroxyzine HCl (Hydroxyzine Hcl 25 Mg Tablet) 25 mg PO Q6H PRN PRN Reason: Anxiety Last Admin: 10/09/22 23:11 Dose: 25 mg Hydroxyzine HCl (Hydroxyzine Hcl 25 Mg Tablet) 25 mg PO TID PRN PRN Reason: Anxiety Last Admin: 10/10/22 22:29 Dose: 25 mg Dextrose (D10) 250 mls @ 750 mls/hr IV Q15M PRN; Protocol PRN Reason: per Hypoglycemia Standing Ord. Insulin Human Lispro (Insulin Lispro 100 Unit/Ml 3 Ml Vial) 0 unit SUBCUT QIDACHS [facility]; Protocol Last Admin: 10/10/22 21:00 Dose: 2 unit Lidocaine (Lidocaine 4 % Patch Adh..Patch) 1 patch TRANSDERMA DAILY [facility] Last Admin: 10/10/22 08:49 Dose: Not Given Lorazepam (Lorazepam 1 Mg Tablet) 2 mg PO TID PRN PRN Reason: Anxiety Last Admin: 10/10/22 21:15 Dose: 2 mg Magnesium Hydroxide (Milk Of Magnesia 30 Ml Oral.Susp) 30 ml PO DAILY PRN PRN Reason: Constipation Last Admin: 10/08/22 15:52 Dose: 30 ml Melatonin (Melatonin 3 Mg Tablet) 3 mg PO BEDTIME PRN PRN Reason: Insomnia Last Admin: 10/09/22 23:11 Dose: 3 mg Metformin HCl (Metformin Hcl 1,000 Mg Tablet) 1,000 mg PO DAILY [facility] Last Admin: 10/10/22 08:35 Dose: 1,000 mg Metoprolol Succinate (Metoprolol Succinate Er 25 Mg Tab.Er.24h) 75 mg PO BID [facility]; Protocol Last Admin: 10/10/22 21:03 Dose: 75 mg Nitroglycerin (Nitroglycerin 0.4 Mg Tab.Subl) 0.4 mg SUBLINGUAL Q5M PRN PRN Reason: Chest Pain Nystatin (Nystatin Powder 15 Gm Bottle) 1 appl TOPICAL BID [facility]; Protocol Last Admin: 10/10/22 22:31 Dose: Not Given Omeprazole (Omeprazole 20 Mg Capsule.Dr) 20 mg PO DAILY@0630 [facility] Last Admin: 10/11/22 06:27 Dose: 20 mg Ondansetron HCl (Ondansetron Odt 4 Mg Tab.Rapdis) 4 mg TRANSLINGU Q8H PRN PRN Reason: Nausea Phenytoin Sodium (Phenytoin Sodium Extended 100 Mg Capsule) 200 mg PO DAILY [facility] Last Admin: 10/10/22 08:34 Dose: 200 mg Phenytoin Sodium (Phenytoin Sodium Extended 100 Mg Capsule) 400 mg PO BEDTIME [facility] Last Admin: 10/10/22 21:02 Dose: 400 mg Quetiapine Fumarate (Quetiapine Fumarate 100 Mg Tablet) 100 mg PO BEDTIME PRN PRN Reason: Insomnia Last Admin: 10/10/22 22:28 Dose: 100 mg Quetiapine Fumarate (Quetiapine Fumarate 200 Mg Tablet) 200 mg PO BID [facility] Last Admin: 10/10/22 21:04 Dose: 200 mg Senna (Sennosides 8.6 Mg Tablet) 8.6 mg PO DAILY [facility] Last Admin: 10/10/22 08:37 Dose: 8.6 mg Simethicone (Simethicone 80 Mg Tab.Chew) 80 mg PO TID PRN PRN Reason: Indigestion Torsemide (Torsemide 20 Mg Tablet) 40 mg PO DAILY [facility]; Protocol Last Admin: 10/10/22 08:36 Dose: 40 mg Trazodone HCl (Trazodone Hcl 50 Mg Tablet) 50 mg PO BEDTIME MRX1 PRN PRN Reason: Insomnia Trazodone HCl (Trazodone Hcl 50 Mg Tablet) 50 mg PO BEDTIME [facility] Last Admin: 10/10/22 21:05 Dose: 50 mg Allergies Allergies Allergy/AdvReac Type Severity Reaction Status Date / Time aspirin Allergy Severe OCCASIONAL Verified 04/08/22 14:18 RASH / TONGUE SWELLING, Hives, throat swellig bee pollen [BEE STINGS] Allergy Severe ANAPHYLAXIS Verified 04/08/22 14:18 Penicillins Allergy Severe ANAPHYLAXIS Verified 04/08/22 14:18 povidone-iodine [Betadine] Allergy Severe Redness of Verified 04/08/22 14:18 Skin soap [Betadine] Allergy Severe Redness of Verified 04/08/22 14:18 Skin spider venom [SPIDER BITES] Allergy Severe Hives Verified 04/08/22 14:18 amoxicillin Allergy Intermediate Hives Verified 04/08/22 14:18 clindamycin Allergy Mild RASH Verified 04/08/22 14:18 latex [Latex] Allergy Mild RASH Verified 04/08/22 14:18 shrimp Allergy Hives Verified 06/21/22 11:48 bupropion [From WELLBUTRIN] AdvReac Severe SEIZURES Verified 04/08/22 14:18 adhesive tape AdvReac Mild Rash Verified 04/14/22 15:55 Assessment & Plan Assessment & Plan (1) Routine history and physical examination of adult: Status: Acute Code(s): Z00.00 - Encounter for general adult medical examination without abnormal findings Plan Pt is a 62-year-old male with a PMH significant for?paroxysmal AFib on Eliquis, insulin-dependent diabetes, mood disorder, chronic pain on opioids, HLD, HTN, and morbid obesity who is admitted to [facility] for worsening depression with SI. Medical consult for admission H&P. ? Mood disorder Plan as per psychiatry Global weakness/deconditioning Patient states he is no longer able to use walker to ambulate, has lately been mostly confined to bed PT evaluation Chronic abdominal pain Patient has been complaining of lower abdominal pain since March of last year Patient has multiple CT scans that did negative for acute abdomen Continue home analgesics for pain management Chronic knee and ankle pain Continue analgesics for pain management HTN Continue antihypertensives Paroxysmal AFib Continue Eliquis, metoprolol, digoxin Insulin-dependent diabetes Continue home meds Diabetic diet Chronic hypoxic respiratory failure On home O2 4 L, continue CPAP at night Mild intermittent asthma without acute exacerbation Continue home inhalers Seizure disorder Continue phenytoin Chronic iron deficiency anemia Continue iron supplementation Plan 1. Gather collateral information. 2. Continue with Cymbalta 60 mg p.o. b.i.d.. 3. PT saw him and he would be suitable for suitable acute rehab. We will discuss also the possibility of long-term care. 4. Hospitalist saw him and suggested Cards consult. Reason for continued inpatient stay Substantial Risk for: inability to function, rapid decompensation and med/psych decompensation Time Spent With Patient Time: Total time managing care of this patient today __20__ minutes.
[2022-10-11] MEDS: Insulin Lispro 100 UNIT/ML 3 ML VIAL SUBCUT ×3 (08:41→21:29)
[2022-10-11] MEDS: QUEtiapine Fumarate 200 MG TABLET PO ×2 (08:43→20:30)
[2022-10-11] MEDS: ARIPiprazole 5 MG TABLET 7.5 MG PO (08:44)
[2022-10-11] MEDS: Metoprolol Succinate ER 25 MG TAB.ER.24H 75 MG PO ×2 (08:44→20:31)
[2022-10-11] MEDS: metFORMIN HCl 1,000 MG TABLET 1000 MG PO (08:46)
[2022-10-11] MEDS: Sennosides 8.6 MG TABLET PO (08:47)
[2022-10-11] MEDS: Ferrous Sulfate 324 MG TABLET.DR PO (08:47)
[2022-10-11] MEDS: Apixaban 5 MG TABLET PO ×2 (08:47→20:29)
[2022-10-11] MEDS: Phenytoin Sodium Extended 100 MG CAPSULE 200 MG PO (08:47)
[2022-10-11] MEDS: Torsemide 20 MG TABLET 40 MG PO (08:48)
[2022-10-11] MEDS: DULoxetine HCl 60 MG CAPSULE.DR PO ×2 (08:48→20:30)
[2022-10-11] MEDS: Atorvastatin Calcium 80 MG TABLET PO (08:48)
[2022-10-11] MEDS: LORazepam 1 MG TABLET 2 MG PO ×2 (09:17→17:50)
[2022-10-11] MEDS: Nystatin Powder 15 GM BOTTLE 1 APPL TOPICAL (11:30)
[2022-10-11 12:04] LABS: Glucose, Whole Blood 185 mg/dL (60-115)
[2022-10-11] MEDS: dilTIAZem HCL CD 120 MG CAP.ER.DEG PO (12:09)
--- NOTE | 2022-10-11 12:19 | HO.PM.IMPN ---
Subjective Subjective Date of Service: 10/11/22 Interval History: Pt seen in follow up for soft blood pressures and BLE wounds. Pt is taking diltiazem 120mg daily and metoprolol 75mg BID for management of htn and afib. Also on digoxin every other day. On admission, EKF showed Afib rvr, rate 109. HR has fluctuated 76-145 with soft blood pressures 95/63-134/59. Denies lightheadedness, palpitations, sob, chest pain. Also has chronic wound bilaterally great toes. States have been there for as long as I've had toes . Has PVD, type 2 diabetes, and diabetic polyneuropathy. Reports pain in the feet bilaterally. No drainage. Review of Systems Review of Systems: Yes all other systems are reviewed and are negative Physical Exam Vital Signs: Vital Signs: Last Vital Signs Temp 99.3 F 10/10/22 18:00 Pulse 78 10/11/22 05:15 Resp 16 10/11/22 05:15 BP 126/70 10/10/22 18:00 Pulse Ox 92 10/11/22 05:15 O2 Del Method Room Air 10/11/22 05:15 BMI result Body Mass Index 37.9 Constitutional - Awake and Alert, No apparent distress Eyes - PERRLA, EOMI Cardiovascular - irregularly irregular tachycardic, No edema Respiratory - Normal lung expansion, Normal respiratory effort, No respiratory distress, CTA bilaterally Gastrointestinal - NT / ND; +BS; No rebound or guarding Extremities - no calf tenderness bilaterally, chronic subcentimeter ulcerations bilaterally great toe with dusky erythema surrounding. No puruletn drainage. Hammer toes bilaterally. [place] venous stasis changes bilaterally with shallow ulceration anterior right lower leg Skin - Warm/Dry Neurological - Alert & oriented x3 Objective Data Active Medications Acetaminophen (Acetaminophen 325 Mg Tablet) 650 mg PO Q6H PRN PRN Reason: Headache/Pain Mild Scale (1-3) Last Admin: 10/09/22 23:10 Dose: 650 mg Documented By: EDSON Al Hydroxide/Mg Hydroxide (Magnesium Hydrox/Alum Hydrox 30 Ml Oral.Susp) 30 ml PO Q6H PRN PRN Reason: Heartburn/Nausea Albuterol Sulfate (Albuterol Sulfate 90 Mcg 8 Gm Inhaler) 2 puff INHALE Q4H PRN PRN Reason: Shortness Of Breath Apixaban (Apixaban 5 Mg Tablet) 5 mg PO BID [facility] Last Admin: 10/11/22 08:47 Dose: 5 mg Documented By: INDRA Aripiprazole (Aripiprazole 5 Mg Tablet) 7.5 mg PO DAILY [facility] Last Admin: 10/11/22 08:44 Dose: 7.5 mg Documented By: INDRA Atorvastatin Calcium (Atorvastatin Calcium 80 Mg Tablet) 80 mg PO DAILY [facility] Last Admin: 10/11/22 08:48 Dose: 80 mg Documented By: INDRA Diltiazem HCl (Diltiazem Hcl Cd 120 Mg Cap.Er.Deg) 120 mg PO DAILY@11 [facility]; Protocol Last Admin: 10/11/22 12:09 Dose: 120 mg Documented By: INDRA Duloxetine HCl (Duloxetine Hcl 60 Mg Capsule.) 60 mg PO BID [facility] Last Admin: 10/11/22 08:48 Dose: 60 mg Documented By: INDRA Ferrous Sulfate (Ferrous Sulfate 324 Mg Tablet.) 324 mg PO MoWeFr@0900 [facility] Last Admin: 10/11/22 08:47 Dose: 324 mg Documented By: INDRA Fluticasone Propionate (Fluticasone Propionate Nasal 16 Gm [place]) 1 spray NOSTRIL-B BID [facility] Last Admin: 10/11/22 10:32 Dose: Not Given Documented By: INDRA Non-Admin Reason: Patient Refused Gabapentin (Gabapentin 400 Mg Capsule) 400 mg PO 5XD [facility] Last Admin: 10/11/22 09:11 Dose: 400 mg Documented By: INDRA Glucose (Glucose Gel 15 Gm Gel..Gram.) 15 gm PO Q15M PRN; Protocol PRN Reason: per Hypoglycemia Standing Ord. Hydroxyzine HCl (Hydroxyzine Hcl 25 Mg Tablet) 25 mg PO Q6H PRN PRN Reason: Anxiety Last Admin: 10/09/22 23:11 Dose: 25 mg Documented By: ISREALRINL Hydroxyzine HCl (Hydroxyzine Hcl 25 Mg Tablet) 25 mg PO TID PRN PRN Reason: Anxiety Last Admin: 10/10/22 22:29 Dose: 25 mg Documented By: DIANE Dextrose (D10) 250 mls @ 750 mls/hr IV Q15M PRN; Protocol PRN Reason: per Hypoglycemia Standing Ord. Insulin Human Lispro (Insulin Lispro 100 Unit/Ml 3 Ml Vial) 0 unit SUBCUT QIDACHS [facility]; Protocol Last Admin: 10/11/22 12:08 Dose: 2 unit Documented By: INDRA Lidocaine (Lidocaine 4 % Patch Adh..Patch) 1 patch TRANSDERMA DAILY [facility] Last Admin: 10/11/22 10:32 Dose: Not Given Documented By: INDRA Non-Admin Reason: Patient Refused Lorazepam (Lorazepam 1 Mg Tablet) 2 mg PO TID PRN PRN Reason: Anxiety Last Admin: 10/11/22 09:17 Dose: 2 mg Documented By: INDRA Magnesium Hydroxide (Milk Of Magnesia 30 Ml Oral.Susp) 30 ml PO DAILY PRN PRN Reason: Constipation Last Admin: 10/08/22 15:52 Dose: 30 ml Documented By: JM Melatonin (Melatonin 3 Mg Tablet) 3 mg PO BEDTIME PRN PRN Reason: Insomnia Last Admin: 10/09/22 23:11 Dose: 3 mg Documented By: EDSON Metformin HCl (Metformin Hcl 1,000 Mg Tablet) 1,000 mg PO DAILY [facility] Last Admin: 10/11/22 08:46 Dose: 1,000 mg Documented By: INDRA Metoprolol Succinate (Metoprolol Succinate Er 25 Mg Tab.Er.24h) 75 mg PO BID [facility]; Protocol Last Admin: 10/11/22 08:44 Dose: 75 mg Documented By: INDRA Nitroglycerin (Nitroglycerin 0.4 Mg Tab.Subl) 0.4 mg SUBLINGUAL Q5M PRN PRN Reason: Chest Pain Nystatin (Nystatin Powder 15 Gm Bottle) 1 appl TOPICAL BID [facility]; Protocol Last Admin: 10/11/22 11:30 Dose: 1 appl Documented By: INDRA Omeprazole (Omeprazole 20 Mg Capsule.Dr) 20 mg PO DAILY@0630 [facility] Last Admin: 10/11/22 06:27 Dose: 20 mg Documented By: DIANE Ondansetron HCl (Ondansetron Odt 4 Mg Tab.Rapdis) 4 mg TRANSLINGU Q8H PRN PRN Reason: Nausea Phenytoin Sodium (Phenytoin Sodium Extended 100 Mg Capsule) 200 mg PO DAILY [facility] Last Admin: 10/11/22 08:47 Dose: 200 mg Documented By: INDRA Phenytoin Sodium (Phenytoin Sodium Extended 100 Mg Capsule) 400 mg PO BEDTIME [facility] Last Admin: 10/10/22 21:02 Dose: 400 mg Documented By: DIANE Quetiapine Fumarate (Quetiapine Fumarate 100 Mg Tablet) 100 mg PO BEDTIME PRN PRN Reason: Insomnia Last Admin: 10/10/22 22:28 Dose: 100 mg Documented By: DIANE Quetiapine Fumarate (Quetiapine Fumarate 200 Mg Tablet) 200 mg PO BID [facility] Last Admin: 10/11/22 08:43 Dose: 200 mg Documented By: INDRA Senna (Sennosides 8.6 Mg Tablet) 8.6 mg PO DAILY [facility] Last Admin: 10/11/22 08:47 Dose: 8.6 mg Documented By: INDRA Simethicone (Simethicone 80 Mg Tab.Chew) 80 mg PO TID PRN PRN Reason: Indigestion Torsemide (Torsemide 20 Mg Tablet) 40 mg PO DAILY [facility]; Protocol Last Admin: 10/11/22 08:48 Dose: 40 mg Documented By: INDRA Trazodone HCl (Trazodone Hcl 50 Mg Tablet) 50 mg PO BEDTIME MRX1 PRN PRN Reason: Insomnia Trazodone HCl (Trazodone Hcl 50 Mg Tablet) 50 mg PO BEDTIME [facility] Last Admin: 10/10/22 21:05 Dose: 50 mg Documented By: DIANE Labs 10/07/22 10:53 10/07/22 10:53 Labs: Laboratory Results - last 24 hr 10/10/22 10/10/22 10/11/22 16:18 20:06 07:50 POC Glucose 112 190 H 160 H 10/11/22 12:00 POC Glucose 185 H Assessment and Plan (1) Atrial fibrillation with rapid ventricular response: Status: Acute (2) Chronic diabetic ulcer of foot determined by examination: Status: Acute Plan 62 year old male with paroxysmal afib on eliquis, insulin dependent type 2 diabetes, chronic pain syndrome on chronic opiate therapy, hld, htn, and morbid obesity admitted to psychiatry for worsening depression. Has had soft blood pressures with afib rvr HR 75-145 and noted to have chronic ulcerations on the great toes bilaterally. #Paroxysmal afib with rvr -Continue metoprolol 75mg BID and diltiazem 120mg daily. Given soft BPs, would recommend consulting cardiology for further medication management of afib with rvr. Continue diltiazem -Pt asymptomatic -Monitor VS q4h -Reviewed last echo from 04/27. EKG on admission afib rvr, rate 109 -Continue eliquis #HTN- bps soft -continue diliazem and metoprolol as above for rate control -No hypotension. Monitor VS closely #Chronic stage 2 ulcers bilateral great toes- r/t type 2 diabetes and PVD -No evidence of acute infection -Wound care consult -XRay ordered to evalaute for osteo -CRP/ESR ordered Will also recheck BMP Will continue to follow. Case discussed with Dr. Garcias Time Spent With Patient Time: Total time managing care of this patient today ____ minutes. Quality Stroke Does the patient have a stroke diagnosis?: No VTE Prior VTE?: No VTE Risk Level:: Medical - low VTE Device Contraindication: Treatment Not Indicated VTE Drug Contraindication: N/A - Med Ordered
--- NOTE | 2022-10-11 13:10 | HO.WOUNDCONS ---
History of Present Illness Data of Consult Service Date: 10/11/22 Requesting physician: Jennifer Rausch Primary Care Provider: Brown Parada MD [facility] Reason for consult: toe and leg ulcers 62-year-old male who is in the geriatric psychiatric unit and we are asked to provide opinion about his toe wounds. He has diabetes. They are checking his blood sugars here. He denies fevers and chills. He denies malfitting footwear. Feet and right leg drains from time to time. He denies fall when asked point blank but has an abrasion on his right knee. This is of all thing. Denies pain in the knee but reports a history of ankle surgery on the right, unable to pry details. He does not have a previous history of vascular disease nor does he wear compression hose at home. Review of Systems Review of Systems: No fevers or chills. No chest pain or short of breath reported no belly discomfort or nausea. [facility] Medical History (Updated 10/11/22 @ 12:47 by JORDAN Abel) Anxiety Arthritis Asthma Atrial fibrillation Atrial fibrillation with rapid ventricular response Bladder outlet obstruction Chronic back pain Coronary artery disease Diabetes mellitus, type 2 Fall Hypertension Multifactorial gait disorder Obesity PTSD (post-traumatic stress disorder) TIA (transient ischemic attack) Transient ischemic attack (TIA) Weakness Social History Household Members: None Housing: Apartment Do you presently have visiting nurse or other home services: Yes Alcohol intake: never Patient Tobacco Use Status: Never used Tobacco Smoked in Last 30 Days: No e-Cigarette/Vaping Use: Never Used Patient Interested in Nicotine Replacement: No Patient Given Instructions on How to Stop Smoking: No Second Hand Smoke Exposure: No Use of substances other than those prescribed or required for medical reasons: No Currently Displaying Signs/Symptoms of Drug Intoxication Withdrawal: No Any prior treatment program specific to substance use: No Have you been hit, kicked, punched, or otherwise hurt by someone within the past year? If so, by whom?: No Do you feel safe in your current relationship?: No Is there a partner from a previous relationship who is making you feel unsafe now?: No Are you made to feel afraid or neglected: No [facility] Practices: would like to see a lead operator Advance Directives: Yes Advance Directives on File: Yes Advance Directives Date on File: 07/27/22 Do you have thoughts of harming others: None Do you have a plan to hurt others: No Plan service: No Current occupational status: disabled Sexual orientation: Straight/Heterosexual Meds Allergies Allergy/AdvReac Type Severity Reaction Status Date / Time aspirin Allergy Severe OCCASIONAL Verified 04/08/22 14:18 RASH / TONGUE SWELLING, Hives, throat swellig bee pollen [BEE STINGS] Allergy Severe ANAPHYLAXIS Verified 04/08/22 14:18 Penicillins Allergy Severe ANAPHYLAXIS Verified 04/08/22 14:18 povidone-iodine [Betadine] Allergy Severe Redness of Verified 04/08/22 14:18 Skin soap [Betadine] Allergy Severe Redness of Verified 04/08/22 14:18 Skin spider venom [SPIDER BITES] Allergy Severe Hives Verified 04/08/22 14:18 amoxicillin Allergy Intermediate Hives Verified 04/08/22 14:18 clindamycin Allergy Mild RASH Verified 04/08/22 14:18 latex [Latex] Allergy Mild RASH Verified 04/08/22 14:18 shrimp Allergy Hives Verified 06/21/22 11:48 bupropion [From WELLBUTRIN] AdvReac Severe SEIZURES Verified 04/08/22 14:18 adhesive tape AdvReac Mild Rash Verified 04/14/22 15:55 Active Medications: Current Medications Acetaminophen (Acetaminophen 325 Mg Tablet) 650 mg PO Q6H PRN PRN Reason: Headache/Pain Mild Scale (1-3) Last Admin: 10/09/22 23:10 Dose: 650 mg Al Hydroxide/Mg Hydroxide (Magnesium Hydrox/Alum Hydrox 30 Ml Oral.Susp) 30 ml PO Q6H PRN PRN Reason: Heartburn/Nausea Albuterol Sulfate (Albuterol Sulfate 90 Mcg 8 Gm Inhaler) 2 puff INHALE Q4H PRN PRN Reason: Shortness Of Breath Apixaban (Apixaban 5 Mg Tablet) 5 mg PO BID [facility] Last Admin: 10/11/22 08:47 Dose: 5 mg Aripiprazole (Aripiprazole 5 Mg Tablet) 7.5 mg PO DAILY [facility] Last Admin: 10/11/22 08:44 Dose: 7.5 mg Atorvastatin Calcium (Atorvastatin Calcium 80 Mg Tablet) 80 mg PO DAILY [facility] Last Admin: 10/11/22 08:48 Dose: 80 mg Diltiazem HCl (Diltiazem Hcl Cd 120 Mg Cap.Er.Deg) 120 mg PO DAILY@11 [facility]; Protocol Last Admin: 10/11/22 12:09 Dose: 120 mg Duloxetine HCl (Duloxetine Hcl 60 Mg Capsule.Dr) 60 mg PO BID [facility] Last Admin: 10/11/22 08:48 Dose: 60 mg Ferrous Sulfate (Ferrous Sulfate 324 Mg Tablet.Dr) 324 mg PO MoWeFr@0900 [facility] Last Admin: 10/11/22 08:47 Dose: 324 mg Fluticasone Propionate (Fluticasone Propionate Nasal 16 Gm [place]) 1 spray NOSTRIL-B BID [facility] Last Admin: 10/11/22 10:32 Dose: Not Given Gabapentin (Gabapentin 400 Mg Capsule) 400 mg PO 5XD [facility] Last Admin: 10/11/22 09:11 Dose: 400 mg Glucose (Glucose Gel 15 Gm Gel..Gram.) 15 gm PO Q15M PRN; Protocol PRN Reason: per Hypoglycemia Standing Ord. Hydroxyzine HCl (Hydroxyzine Hcl 25 Mg Tablet) 25 mg PO Q6H PRN PRN Reason: Anxiety Last Admin: 10/09/22 23:11 Dose: 25 mg Hydroxyzine HCl (Hydroxyzine Hcl 25 Mg Tablet) 25 mg PO TID PRN PRN Reason: Anxiety Last Admin: 10/10/22 22:29 Dose: 25 mg Dextrose (D10) 250 mls @ 750 mls/hr IV Q15M PRN; Protocol PRN Reason: per Hypoglycemia Standing Ord. Insulin Human Lispro (Insulin Lispro 100 Unit/Ml 3 Ml Vial) 0 unit SUBCUT QIDACHS [facility]; Protocol Last Admin: 10/11/22 12:08 Dose: 2 unit Lidocaine (Lidocaine 4 % Patch Adh..Patch) 1 patch TRANSDERMA DAILY [facility] Last Admin: 10/11/22 10:32 Dose: Not Given Lorazepam (Lorazepam 1 Mg Tablet) 2 mg PO TID PRN PRN Reason: Anxiety Last Admin: 10/11/22 09:17 Dose: 2 mg Magnesium Hydroxide (Milk Of Magnesia 30 Ml Oral.Susp) 30 ml PO DAILY PRN PRN Reason: Constipation Last Admin: 10/08/22 15:52 Dose: 30 ml Melatonin (Melatonin 3 Mg Tablet) 3 mg PO BEDTIME PRN PRN Reason: Insomnia Last Admin: 10/09/22 23:11 Dose: 3 mg Metformin HCl (Metformin Hcl 1,000 Mg Tablet) 1,000 mg PO DAILY [facility] Last Admin: 10/11/22 08:46 Dose: 1,000 mg Metoprolol Succinate (Metoprolol Succinate Er 25 Mg Tab.Er.24h) 75 mg PO BID [facility]; Protocol Last Admin: 10/11/22 08:44 Dose: 75 mg Nitroglycerin (Nitroglycerin 0.4 Mg Tab.Subl) 0.4 mg SUBLINGUAL Q5M PRN PRN Reason: Chest Pain Nystatin (Nystatin Powder 15 Gm Bottle) 1 appl TOPICAL BID [facility]; Protocol Last Admin: 10/11/22 11:30 Dose: 1 appl Omeprazole (Omeprazole 20 Mg Capsule.Dr) 20 mg PO DAILY@0630 [facility] Last Admin: 10/11/22 06:27 Dose: 20 mg Ondansetron HCl (Ondansetron Odt 4 Mg Tab.Rapdis) 4 mg TRANSLINGU Q8H PRN PRN Reason: Nausea Phenytoin Sodium (Phenytoin Sodium Extended 100 Mg Capsule) 200 mg PO DAILY [facility] Last Admin: 10/11/22 08:47 Dose: 200 mg Phenytoin Sodium (Phenytoin Sodium Extended 100 Mg Capsule) 400 mg PO BEDTIME [facility] Last Admin: 10/10/22 21:02 Dose: 400 mg Quetiapine Fumarate (Quetiapine Fumarate 100 Mg Tablet) 100 mg PO BEDTIME PRN PRN Reason: Insomnia Last Admin: 10/10/22 22:28 Dose: 100 mg Quetiapine Fumarate (Quetiapine Fumarate 200 Mg Tablet) 200 mg PO BID [facility] Last Admin: 10/11/22 08:43 Dose: 200 mg Senna (Sennosides 8.6 Mg Tablet) 8.6 mg PO DAILY [facility] Last Admin: 10/11/22 08:47 Dose: 8.6 mg Simethicone (Simethicone 80 Mg Tab.Chew) 80 mg PO TID PRN PRN Reason: Indigestion Torsemide (Torsemide 20 Mg Tablet) 40 mg PO DAILY [facility]; Protocol Last Admin: 10/11/22 08:48 Dose: 40 mg Trazodone HCl (Trazodone Hcl 50 Mg Tablet) 50 mg PO BEDTIME MRX1 PRN PRN Reason: Insomnia Trazodone HCl (Trazodone Hcl 50 Mg Tablet) 50 mg PO BEDTIME [facility] Last Admin: 10/10/22 21:05 Dose: 50 mg Home Medications Medication Instructions Recorded Confirmed Last Taken Type apixaban 5 mg tablet (Eliquis) 1 tab PO BID 07/08/22 10/04/22 Unknown History hydroxyzine HCl 25 mg tablet 1 tab PO TID PRN Anxiety 07/08/22 10/04/22 Unknown History lorazepam 2 mg tablet 1 tab PO TID PRN Anxiety 07/08/22 10/04/22 Unknown History metformin 1,000 mg tablet 1 tab PO DAILY 07/08/22 10/04/22 Unknown History oxycodone 5 mg tablet 1 tab PO TID PRN Pain 07/08/22 10/04/22 Unknown History pantoprazole 40 mg tablet,delayed 1 tab PO DAILY@0630 07/08/22 10/04/22 Unknown History release phenytoin sodium extended 100 mg 200 mg PO DAILY 07/08/22 10/04/22 Unknown History capsule trazodone 50 mg tablet 1 tab PO BEDTIME 07/08/22 10/04/22 Unknown History acetaminophen 500 mg tablet 1,000 mg PO BID PRN Pain 07/09/22 10/04/22 Unknown History albuterol sulfate 90 mcg/actuation 2 puff inhalation Q4-6H PRN 07/09/22 10/04/22 Unknown History aerosol inhaler (ProAir HFA) Shortness Of Breath atorvastatin 80 mg tablet 1 tab PO DAILY 07/09/22 10/04/22 Unknown History digoxin 125 mcg (0.125 mg) tablet 1 tab PO Q2D 07/09/22 07/28/22 Unknown History duloxetine 30 mg capsule,delayed 30 mg PO DAILY 07/09/22 07/28/22 Unknown History release duloxetine 30 mg capsule,delayed 60 mg PO BID 07/09/22 10/04/22 Unknown History release fluticasone propionate 50 1 spray intranasal BID 07/09/22 10/04/22 Unknown History mcg/actuation nasal spray,suspension gabapentin 400 mg capsule 1 cap PO 5XD 07/09/22 10/04/22 Unknown History insulin glargine 100 unit/mL (3 20 unit subcut BEDTIME 07/09/22 07/28/22 Unknown History mL) subcutaneous pen (Lantus Solostar U-100 Insulin) insulin lispro 100 unit/mL 2 - 10 unit subcut TIDAC 07/09/22 10/04/22 Unknown History subcutaneous pen phenytoin sodium extended 100 mg 400 mg PO BEDTIME 07/09/22 10/04/22 Unknown History capsule quetiapine 100 mg tablet 1 tab PO BEDTIME PRN Insomnia 07/09/22 10/04/22 Unknown History quetiapine 200 mg tablet 1 tab PO BID 07/09/22 10/04/22 Unknown History torsemide 20 mg tablet 1 tab PO DAILY 07/09/22 10/04/22 Unknown History empagliflozin 10 mg tablet 10 mg PO DAILY 07/30/22 07/30/22 Unknown History (Jardiance) ferrous sulfate 324 mg (65 mg 324 mg PO DIRECTED 07/30/22 10/04/22 Unknown History iron) tablet,delayed release aripiprazole 5 mg tablet 7.5 mg PO DAILY 10/04/22 10/04/22 Unknown History calamine See Rx Instructions .Route .COMPLEX 10/04/22 10/04/22 Unknown History diltiazem HCl 120 mg capsule,24 120 mg PO DAILY@11 10/04/22 10/04/22 Unknown History hr,extended release lidocaine 5 % topical patch 1 patch topical DAILY 10/04/22 10/04/22 Unknown History melatonin 3 mg tablet 3 mg PO BEDTIME PRN Insomnia 10/04/22 10/04/22 Unknown History metoprolol succinate 25 mg 75 mg PO DAILY 10/04/22 10/04/22 Unknown History tablet,extended release 24 hr nitroglycerin 0.4 mg sublingual 0.4 mg sublingual Q5M PRN Chest 10/04/22 10/04/22 Unknown History tablet Pain nystatin 100,000 unit/gram topical 1 appl topical BID 10/04/22 10/04/22 Unknown History powder ondansetron 4 mg disintegrating 4 mg PO Q6H PRN Nausea 10/04/22 10/04/22 Unknown History tablet sennosides 8.6 mg tablet (senna) 8.6 mg PO DAILY 10/04/22 10/04/22 Unknown History simethicone 80 mg tablet 80 mg PO TID PRN Indigestion 10/04/22 10/04/22 Unknown History Physical Exam Vital Signs and Narrative: Vital Signs: Last Vital Signs Temp 99.3 F 10/10/22 18:00 Pulse 78 10/11/22 05:15 Resp 16 10/11/22 05:15 BP 126/70 10/10/22 18:00 Pulse Ox 92 10/11/22 05:15 O2 Del Method Room Air 10/11/22 05:15 BMI result Body Mass Index 37.9 There is localized edema to the right diaz of unclear etiology. Possibly related to trauma. [place] of localized edema has open ulcer. Violaceous changes suggest chronic venous insufficiency also. I do not see warmth or streaking to suggest active cellulitis on the right. The most concerning ulcer is of the distal tip of the great right toe which does not have periosteal exposure but is in a difficult spot to achieve closure. More proximal area also benefit from silver alginate. Left great toe ulcer is a bit dry and callused and might benefit from debridement after x-rays obtained but this will need to be deferred outpatient. Use alginate the meantime for all open areas. Dorsalis pedis pulses are bounding bilaterally. Results Labs 10/07/22 10:53 10/07/22 10:53 Labs: Laboratory Results - last 24 hr 10/10/22 10/10/22 10/11/22 16:18 20:06 07:50 POC Glucose 112 190 H 160 H 10/11/22 12:00 POC Glucose 185 H Assessment and Plan (1) Chronic diabetic ulcer of foot determined by examination: Status: Acute Plan 62-year-old male with diabetes followed by hospital medicine with concern of diabetic foot ulcers of unclear chronicity. Completely agree that the left toe x-ray is necessary. Topical dressings best utilized with alginate, not to exclude the right diaz. In this unit, compression devices are generally not possible because of safety. No signs of infection. He can follow-up in the wound clinic after discharge if desired for further recommendations if desired. Time Spent With Patient Time: Total time managing care of this patient today ____ minutes.
[2022-10-11 14:36] VITALS: BP 117/68; PULSE 94; O2SAT 94
[2022-10-11 14:56] LABS: Erythrocyte Sedimentation Rate 18 MM/HR (0-15)
[2022-10-11 16:44] LABS: Glucose, Whole Blood 111 mg/dL (60-115)
[2022-10-11 18:00] VITALS: BP 112/65; PULSE 95; RESP 18; TEMP 37; O2SAT 97
--- NOTE | 2022-10-11 18:24 | PC.NURSE ---
Pt anabel a shower this am. While showering bilat great toes appear ulcerative and necrotic L>R ulcerative area noted to R diaz mid cellulitic area. MD notified. Wound care consult made. Pt seen. Orders received. Pt to radiology for xrays. Returned to unit ate lunch and returned to bed. TC to nursing supervisor machining for alginate dressing.
[2022-10-11] MEDS: Phenytoin Sodium Extended 100 MG CAPSULE 400 MG PO (20:29)
[2022-10-11] MEDS: traZODone HCL 50 MG TABLET PO (20:30)
[2022-10-11 21:09] LABS: Glucose, Whole Blood 161 mg/dL (60-115)
--- NOTE | 2022-10-11 21:45 | PHA.PROG ---
Admission Date/Time: October 04, 2022 17:45 Indication: bone + joint inf Weight in k.5 kg Adjusted body weight in K.7 [place] body weight in K.5 Obesity Dosing Indication % IBW: Serum Creatinine - Last 168 Hours 10/05/22 10/07/22 07:34 10:53 Creatinine 0.93 1.22 Estimated CrCl and GFR - Last 168 Hours 10/05/22 10/07/22 07:34 10:53 Estim Creat Clear Calc 122.4 91.4 Estimated GFR > 60 60 Vancomycin Loading Dose: 2000 mg Current Vancomycin Dosing Regimen: 1000 mg q12h Vancomycin Monitoring using AUC goal of 400 - 600 range with trough as surrogate marker: predicted auc [id number] Date and Time for next Vancomycin Level to be drawn: 10/12 @2100 random Pharmacist Comments on Vancomycin Plan: obese model used. last cr from 10/07, patient on M1 will get a cr tomorrow before second dose Vancomycin dosing will take advantage of [employer] as a clinical decision support tool that uses Bayesian modeling to calculate individual patient's pharmacokinetic parameters and forecast the patient's drug concentration time course with the target goal AUC 24 range of 400 - 600 mg/L/hr.
[2022-10-11] MEDS: vancomycin/NS 2,000 MG/500 ML PLAST..BAG 250 MG IV (22:30)
[2022-10-11 23:45] VITALS: RESP 18
[2022-10-12] VITALS (7 sets, daily range): BP systolic 106–116; BP diastolic 57–84; PULSE 76–112; RESP 16–18; TEMP 36.6–36.7; O2SAT 95–97
[2022-10-12 05:33] LABS: Anion Gap 15 (12-20); Blood Urea Nitrogen 18 mg/dL (9-16); Calcium 8.6 mg/dL (8.4-10.2); Carbon Dioxide 30 mmol/L (22-29); Chloride 101 mmol/L (96-108); Creatinine Clr Calc Pharmacy 121.2; Estimated Glomerular Filt Rate > 60; Glucose Random 142 mg/dL (60-115); Potassium 3.5 mmol/L (3.3-5.1); Sodium 142 mmol/L (135-145)
[2022-10-12] MEDS: Gabapentin 400 MG CAPSULE PO ×5 (05:43→20:06)
[2022-10-12] MEDS: Omeprazole 20 MG CAPSULE.DR PO (05:43)
[2022-10-12] MEDS: LORazepam 1 MG TABLET 2 MG PO ×2 (05:58→20:12)
[2022-10-12 07:58] LABS: Glucose, Whole Blood 150 mg/dL (60-115)
[2022-10-12] MEDS: Torsemide 20 MG TABLET 40 MG PO (08:56)
[2022-10-12] MEDS: DULoxetine HCl 60 MG CAPSULE.DR PO ×2 (08:56→20:04)
[2022-10-12] MEDS: Atorvastatin Calcium 80 MG TABLET PO (08:57)
[2022-10-12] MEDS: QUEtiapine Fumarate 200 MG TABLET PO ×2 (08:58→20:04)
[2022-10-12] MEDS: Metoprolol Succinate ER 25 MG TAB.ER.24H 75 MG PO (08:58)
[2022-10-12] MEDS: Apixaban 5 MG TABLET PO ×2 (08:58→20:05)
[2022-10-12] MEDS: Sennosides 8.6 MG TABLET PO (08:58)
[2022-10-12] MEDS: ARIPiprazole 5 MG TABLET 7.5 MG PO (08:59)
[2022-10-12] MEDS: Phenytoin Sodium Extended 100 MG CAPSULE 200 MG PO (09:00)
[2022-10-12] MEDS: metFORMIN HCl 1,000 MG TABLET 1000 MG PO (09:01)
--- NOTE | 2022-10-12 09:50 | PM.CNCAR ---
History of Present Illness History of Present Illness Date of Service: 10/12/22 Chief complaint: Major depressive disorder Narrative: This is a cardiology consultation regarding atrial fibrillation rapid rate. Patient is currently in the psychiatric unit. Per the last psychiatric note, it seems that he is admitted to the [facility] psych unit for worsening depression with suicidal ideation. Per hospitalist note, the issues that he has atrial fibrillation with less than optimally controlled rates. Medications listed include diltiazem 120 mg daily and metoprolol 75 mg b.i.d.. At home, he is listed to be on digoxin alternate days but he states he is actually taking it every day. However, digoxin is not listed in the inpatient med list and hence not clear why. Patient himself does not have any clear-cut palpitations or other cardiac symptoms at this time. He is mainly be treated for psychiatric issues rather. When I questioned him about outpatient cardiology follow-up, he states he really does not see anybody. Review of Systems Review of Systems: Yes all other systems are reviewed and are negative Constitutional: Constitutional: Reports as per HPI and Reports no additional constitutional complaints Eyes: Eyes: Reports as per HPI and Denies no additional eye complaints ENT: Denies system reviewed and no additional complaints, except as documented and Reports as per HPI Cardiovascular: Cardiovascular: Reports as per HPI, Reports no additional cardiovascular complaints, Denies acrocyanosis, Denies cool extremities, Denies chest pain, Denies leg edema, Denies lightheadedness, Denies palpitations and Denies dyspnea Respiratory: Respiratory: Reports as per HPI, Denies no additional respiratory complaints and Denies dyspnea Gastrointestinal: Gastrointestinal: Reports as per HPI and Denies no additional gastrointestinal complaints Genitourinary: Genitourinary: Reports no additional male genitourinary complaints and Reports as per HPI Musculoskeletal: Musculoskeletal: Reports no additional musculoskeletal complaints and Reports as per HPI Integumentary/Breasts: Skin/Breast: Reports system reviewed and no additional complaints, except as docu Neurologic: Reports system reviewed and no additional complaints, except as documented and Reports as per HPI Psychiatric: Psychiatric: Reports no additional psychiatric complaints and Reports as per HPI Endocrine: Endocrine: Reports no additional endocrine complaints, Reports as per HPI and Denies palpitations Hematologic/Lymphatic: Hematologic/Lymphatic: Reports no additional hematologic/lymphatic complaints and Reports as per HPI Allergic/Immunologic: Allergic/Immunologic: Reports no additional allergic/immunologic complaints and Reports as per HPI PMFSH Past Medical History Medical History (Updated 10/11/22 @ 12:47 by JORDAN Abel) Anxiety Arthritis Asthma Atrial fibrillation Atrial fibrillation with rapid ventricular response Bladder outlet obstruction Chronic back pain Coronary artery disease Diabetes mellitus, type 2 Fall Hypertension Multifactorial gait disorder Obesity PTSD (post-traumatic stress disorder) TIA (transient ischemic attack) Transient ischemic attack (TIA) Weakness Family History Pertinent family history: Patient denies any significant cardiac history in his near family. Social History Social History Household Members: None Housing: Apartment Do you presently have visiting nurse or other home services: Yes Alcohol intake: never Patient Tobacco Use Status: Never used Tobacco Smoked in Last 30 Days: No e-Cigarette/Vaping Use: Never Used Patient Interested in Nicotine Replacement: No Patient Given Instructions on How to Stop Smoking: No Second Hand Smoke Exposure: No Use of substances other than those prescribed or required for medical reasons: No Currently Displaying Signs/Symptoms of Drug Intoxication Withdrawal: No Any prior treatment program specific to substance use: No Have you been hit, kicked, punched, or otherwise hurt by someone within the past year? If so, by whom?: No Do you feel safe in your current relationship?: No Is there a partner from a previous relationship who is making you feel unsafe now?: No Are you made to feel afraid or neglected: No [facility] Practices: would like to see a project structural engineer Advance Directives: Yes Advance Directives on File: Yes Advance Directives Date on File: 07/27/22 Do you have thoughts of harming others: None Do you have a plan to hurt others: No Plan service: No Current occupational status: disabled Sexual orientation: Straight/Heterosexual Meds Allergies Allergy/AdvReac Type Severity Reaction Status Date / Time aspirin Allergy Severe OCCASIONAL Verified 04/08/22 14:18 RASH / TONGUE SWELLING, Hives, throat swellig bee pollen [BEE STINGS] Allergy Severe ANAPHYLAXIS Verified 04/08/22 14:18 Penicillins Allergy Severe ANAPHYLAXIS Verified 04/08/22 14:18 povidone-iodine [Betadine] Allergy Severe Redness of Verified 04/08/22 14:18 Skin soap [Betadine] Allergy Severe Redness of Verified 04/08/22 14:18 Skin spider venom [SPIDER BITES] Allergy Severe Hives Verified 04/08/22 14:18 amoxicillin Allergy Intermediate Hives Verified 04/08/22 14:18 clindamycin Allergy Mild RASH Verified 04/08/22 14:18 latex [Latex] Allergy Mild RASH Verified 04/08/22 14:18 shrimp Allergy Hives Verified 06/21/22 11:48 bupropion [From WELLBUTRIN] AdvReac Severe SEIZURES Verified 04/08/22 14:18 adhesive tape AdvReac Mild Rash Verified 04/14/22 15:55 Active Medications: Current Medications Acetaminophen (Acetaminophen 325 Mg Tablet) 650 mg PO Q6H PRN PRN Reason: Headache/Pain Mild Scale (1-3) Last Admin: 10/09/22 23:10 Dose: 650 mg Al Hydroxide/Mg Hydroxide (Magnesium Hydrox/Alum Hydrox 30 Ml Oral.Susp) 30 ml PO Q6H PRN PRN Reason: Heartburn/Nausea Albuterol Sulfate (Albuterol Sulfate 90 Mcg 8 Gm Inhaler) 2 puff INHALE Q4H PRN PRN Reason: Shortness Of Breath Apixaban (Apixaban 5 Mg Tablet) 5 mg PO BID [facility] Last Admin: 10/12/22 08:58 Dose: 5 mg Aripiprazole (Aripiprazole 5 Mg Tablet) 7.5 mg PO DAILY [facility] Last Admin: 10/12/22 08:59 Dose: 7.5 mg Atorvastatin Calcium (Atorvastatin Calcium 80 Mg Tablet) 80 mg PO DAILY [facility] Last Admin: 10/12/22 08:57 Dose: 80 mg Diltiazem HCl (Diltiazem Hcl Cd 120 Mg Cap.Er.Deg) 120 mg PO DAILY@11 [facility]; Protocol Last Admin: 10/11/22 12:09 Dose: 120 mg Duloxetine HCl (Duloxetine Hcl 60 Mg Capsule.) 60 mg PO BID [facility] Last Admin: 10/12/22 08:56 Dose: 60 mg Ferrous Sulfate (Ferrous Sulfate 324 Mg Tablet.Dr) 324 mg PO MoWeFr@0900 [facility] Last Admin: 10/11/22 08:47 Dose: 324 mg Fluticasone Propionate (Fluticasone Propionate Nasal 16 Gm [place]) 1 spray NOSTRIL-B BID [facility] Last Admin: 10/12/22 09:03 Dose: Not Given Gabapentin (Gabapentin 400 Mg Capsule) 400 mg PO 5XD [facility] Last Admin: 10/12/22 08:57 Dose: 400 mg Glucose (Glucose Gel 15 Gm Gel..Gram.) 15 gm PO Q15M PRN; Protocol PRN Reason: per Hypoglycemia Standing Ord. Hydroxyzine HCl (Hydroxyzine Hcl 25 Mg Tablet) 25 mg PO Q6H PRN PRN Reason: Anxiety Last Admin: 10/09/22 23:11 Dose: 25 mg Hydroxyzine HCl (Hydroxyzine Hcl 25 Mg Tablet) 25 mg PO TID PRN PRN Reason: Anxiety Last Admin: 10/10/22 22:29 Dose: 25 mg Dextrose (D10) 250 mls @ 750 mls/hr IV Q15M PRN; Protocol PRN Reason: per Hypoglycemia Standing Ord. Vancomycin HCl 1,000 mg/ (Sodium Chloride) 270 mls @ 270 mls/hr IV Q12H YOHAN Aztreonam 2 gm/ Sodium (Chloride) 100 mls @ 200 mls/hr IV Q8H [facility] Insulin Human Lispro (Insulin Lispro 100 Unit/Ml 3 Ml Vial) 0 unit SUBCUT QIDACHS [facility]; Protocol Last Admin: 10/12/22 09:02 Dose: Not Given Lidocaine (Lidocaine 4 % Patch Adh..Patch) 1 patch TRANSDERMA DAILY [facility] Last Admin: 10/12/22 09:04 Dose: Not Given Lorazepam (Lorazepam 1 Mg Tablet) 2 mg PO TID PRN PRN Reason: Anxiety Last Admin: 10/12/22 05:58 Dose: 2 mg Magnesium Hydroxide (Milk Of Magnesia 30 Ml Oral.Susp) 30 ml PO DAILY PRN PRN Reason: Constipation Last Admin: 10/08/22 15:52 Dose: 30 ml Melatonin (Melatonin 3 Mg Tablet) 3 mg PO BEDTIME PRN PRN Reason: Insomnia Last Admin: 10/09/22 23:11 Dose: 3 mg Metformin HCl (Metformin Hcl 1,000 Mg Tablet) 1,000 mg PO DAILY [facility] Last Admin: 10/12/22 09:01 Dose: 1,000 mg Metoprolol Succinate (Metoprolol Succinate Er 25 Mg Tab.Er.24h) 75 mg PO BID [facility]; Protocol Last Admin: 10/12/22 08:58 Dose: 75 mg Nitroglycerin (Nitroglycerin 0.4 Mg Tab.Subl) 0.4 mg SUBLINGUAL Q5M PRN PRN Reason: Chest Pain Nystatin (Nystatin Powder 15 Gm Bottle) 1 appl TOPICAL BID [facility]; Protocol Last Admin: 10/12/22 09:04 Dose: Not Given Omeprazole (Omeprazole 20 Mg Capsule.Dr) 20 mg PO DAILY@0630 [facility] Last Admin: 10/12/22 05:43 Dose: 20 mg Ondansetron HCl (Ondansetron Odt 4 Mg Tab.Rapdis) 4 mg TRANSLINGU Q8H PRN PRN Reason: Nausea Pharmacy Consult (Consult Rx Vancomycin Dosing) 1 each MISCELLANE DAILY PRN PRN Reason: Consult order Phenytoin Sodium (Phenytoin Sodium Extended 100 Mg Capsule) 200 mg PO DAILY [facility] Last Admin: 10/12/22 09:00 Dose: 200 mg Phenytoin Sodium (Phenytoin Sodium Extended 100 Mg Capsule) 400 mg PO BEDTIME [facility] Last Admin: 10/11/22 20:29 Dose: 400 mg Quetiapine Fumarate (Quetiapine Fumarate 100 Mg Tablet) 100 mg PO BEDTIME PRN PRN Reason: Insomnia Last Admin: 10/10/22 22:28 Dose: 100 mg Quetiapine Fumarate (Quetiapine Fumarate 200 Mg Tablet) 200 mg PO BID [facility] Last Admin: 10/12/22 08:58 Dose: 200 mg Senna (Sennosides 8.6 Mg Tablet) 8.6 mg PO DAILY [facility] Last Admin: 10/12/22 08:58 Dose: 8.6 mg Simethicone (Simethicone 80 Mg Tab.Chew) 80 mg PO TID PRN PRN Reason: Indigestion Torsemide (Torsemide 20 Mg Tablet) 40 mg PO DAILY [facility]; Protocol Last Admin: 10/12/22 08:56 Dose: 40 mg Trazodone HCl (Trazodone Hcl 50 Mg Tablet) 50 mg PO BEDTIME MRX1 PRN PRN Reason: Insomnia Trazodone HCl (Trazodone Hcl 50 Mg Tablet) 50 mg PO BEDTIME [facility] Last Admin: 10/11/22 20:30 Dose: 50 mg Home Medications Medication Instructions Recorded Confirmed Last Taken Type apixaban 5 mg tablet (Eliquis) 1 tab PO BID 07/08/22 10/04/22 Unknown History hydroxyzine HCl 25 mg tablet 1 tab PO TID PRN Anxiety 07/08/22 10/04/22 Unknown History lorazepam 2 mg tablet 1 tab PO TID PRN Anxiety 07/08/22 10/04/22 Unknown History metformin 1,000 mg tablet 1 tab PO DAILY 07/08/22 10/04/22 Unknown History oxycodone 5 mg tablet 1 tab PO TID PRN Pain 07/08/22 10/04/22 Unknown History pantoprazole 40 mg tablet,delayed 1 tab PO DAILY@0630 07/08/22 10/04/22 Unknown History release phenytoin sodium extended 100 mg 200 mg PO DAILY 07/08/22 10/04/22 Unknown History capsule trazodone 50 mg tablet 1 tab PO BEDTIME 07/08/22 10/04/22 Unknown History acetaminophen 500 mg tablet 1,000 mg PO BID PRN Pain 07/09/22 10/04/22 Unknown History albuterol sulfate 90 mcg/actuation 2 puff inhalation Q4-6H PRN 07/09/22 10/04/22 Unknown History aerosol inhaler (ProAir HFA) Shortness Of Breath atorvastatin 80 mg tablet 1 tab PO DAILY 07/09/22 10/04/22 Unknown History digoxin 125 mcg (0.125 mg) tablet 1 tab PO Q2D 07/09/22 07/28/22 Unknown History duloxetine 30 mg capsule,delayed 30 mg PO DAILY 07/09/22 07/28/22 Unknown History release duloxetine 30 mg capsule,delayed 60 mg PO BID 07/09/22 10/04/22 Unknown History release fluticasone propionate 50 1 spray intranasal BID 07/09/22 10/04/22 Unknown History mcg/actuation nasal spray,suspension gabapentin 400 mg capsule 1 cap PO 5XD 07/09/22 10/04/22 Unknown History insulin glargine 100 unit/mL (3 20 unit subcut BEDTIME 07/09/22 07/28/22 Unknown History mL) subcutaneous pen (Lantus Solostar U-100 Insulin) insulin lispro 100 unit/mL 2 - 10 unit subcut TIDAC 07/09/22 10/04/22 Unknown History subcutaneous pen phenytoin sodium extended 100 mg 400 mg PO BEDTIME 07/09/22 10/04/22 Unknown History capsule quetiapine 100 mg tablet 1 tab PO BEDTIME PRN Insomnia 07/09/22 10/04/22 Unknown History quetiapine 200 mg tablet 1 tab PO BID 07/09/22 10/04/22 Unknown History torsemide 20 mg tablet 1 tab PO DAILY 07/09/22 10/04/22 Unknown History empagliflozin 10 mg tablet 10 mg PO DAILY 07/30/22 07/30/22 Unknown History (Jardiance) ferrous sulfate 324 mg (65 mg 324 mg PO DIRECTED 07/30/22 10/04/22 Unknown History iron) tablet,delayed release aripiprazole 5 mg tablet 7.5 mg PO DAILY 10/04/22 10/04/22 Unknown History calamine See Rx Instructions .Route .COMPLEX 10/04/22 10/04/22 Unknown History diltiazem HCl 120 mg capsule,24 120 mg PO DAILY@11 10/04/22 10/04/22 Unknown History hr,extended release lidocaine 5 % topical patch 1 patch topical DAILY 10/04/22 10/04/22 Unknown History melatonin 3 mg tablet 3 mg PO BEDTIME PRN Insomnia 10/04/22 10/04/22 Unknown History metoprolol succinate 25 mg 75 mg PO DAILY 10/04/22 10/04/22 Unknown History tablet,extended release 24 hr nitroglycerin 0.4 mg sublingual 0.4 mg sublingual Q5M PRN Chest 10/04/22 10/04/22 Unknown History tablet Pain nystatin 100,000 unit/gram topical 1 appl topical BID 10/04/22 10/04/22 Unknown History powder ondansetron 4 mg disintegrating 4 mg PO Q6H PRN Nausea 10/04/22 10/04/22 Unknown History tablet sennosides 8.6 mg tablet (senna) 8.6 mg PO DAILY 10/04/22 10/04/22 Unknown History simethicone 80 mg tablet 80 mg PO TID PRN Indigestion 10/04/22 10/04/22 Unknown History Physical Exam Vital Signs: Vital Signs: Last Vital Signs Temp 98.6 F 10/11/22 18:00 Pulse 95 10/11/22 18:00 Resp 18 10/11/22 23:45 BP 112/65 10/11/22 18:00 Pulse Ox 97 10/11/22 18:00 O2 Del Method Room Air 10/11/22 18:00 BMI result Body Mass Index 37.9 Const: General: comfortable and no acute distress Orientation/consciousness: patient oriented x3 HEENT: Other: Unremarkable Head: Yes normal to inspection Neck: Neck: Yes normal visual inspection Chest: Chest palpation & inspection: normal inspection of the chest Resp: Auscultation: clear to auscultation bilaterally Cardio: Palpation: normal PMI Heart sounds: S1 normal heart sound present, S2 normal heart sound present, no gallops, no murmurs and no rubs GI: Palpation (GI): Soft to palpation Back/Spine/Pelvis: Other: unremarkable Skin: General skin exam: no rashes or lesions noted Neuro: General: patient oriented x3 Extrem: General: Yes normal to inspection Psych: Mental Status: mental status grossly normal Objective Labs and Meds 10/07/22 10:53 10/12/22 05:11 Lab results: Laboratory Results - last 24 hr 10/11/22 10/11/22 10/11/22 12:00 14:07 14:07 ESR 18 H Sodium Potassium Chloride Carbon Dioxide Anion Gap BUN Creatinine Estim Creat Clear Calc Estimated GFR POC Glucose 185 H Random Glucose Calcium C-Reactive Protein 3.10 H 10/11/22 10/11/22 10/12/22 16:40 20:53 05:11 ESR Sodium 142 Potassium 3.5 Chloride 101 Carbon Dioxide 30 H Anion Gap 15 BUN 18 H Creatinine 0.92 Estim Creat Clear Calc 121.2 Estimated GFR > 60 POC Glucose 111 161 H Random Glucose 142 H Calcium 8.6 C-Reactive Protein 10/12/22 07:52 ESR Sodium Potassium Chloride Carbon Dioxide Anion Gap BUN Creatinine Estim Creat Clear Calc Estimated GFR POC Glucose 150 H Random Glucose Calcium C-Reactive Protein ECG Interpretation: In the EKG from 10/07/2022, underlying rhythm is atrial fibrillation rate of 109/Min; right bundle-branch block pattern. Cannot exclude old inferior infarct. Imaging Radiologist's impression: Impressions Foot X-Ray 10/11/22 12:56 IMPRESSION: RIGHT FOOT: Soft tissue ulceration at the distal aspect of the right great toe. Erosion/lucency through the distal tuft of the 1st distal phalanx, likely indicating osteomyelitis. LEFT FOOT: 1. Soft tissue ulceration along the distal/medial aspect of the great toe with circumferential soft tissue swelling. No radiopaque foreign body. No adjacent cortical erosion or periosteal reaction to suggest acute osteomyelitis, however, this may be occult on plain radiographs. 2. Severe osteoarthritis with prominent bony remodeling throughout the tibiotalar and midfoot joints, similar when compared to the prior radiographs from 2016. Foot X-Ray 10/11/22 12:56 IMPRESSION: RIGHT FOOT: Soft tissue ulceration at the distal aspect of the right great toe. Erosion/lucency through the distal tuft of the 1st distal phalanx, likely indicating osteomyelitis. LEFT FOOT: 1. Soft tissue ulceration along the distal/medial aspect of the great toe with circumferential soft tissue swelling. No radiopaque foreign body. No adjacent cortical erosion or periosteal reaction to suggest acute osteomyelitis, however, this may be occult on plain radiographs. 2. Severe osteoarthritis with prominent bony remodeling throughout the tibiotalar and midfoot joints, similar when compared to the prior radiographs from 2016. Assessment and Plan (1) Atrial fibrillation with rapid ventricular response: Status: Acute Plan On checking pulse rate using his radial pulse, his rate is about 110/Min. On the recorded vital signs, some of the pulse rates are well within normal range but some of them are quite high up to 145/Min. With regard to the home regimen, listed to be on diltiazem ER 120 mg daily, metoprolol ER 70 mg daily and digoxin alternate days. Current meds however are diltiazem CD 1 20 mg daily with metoprolol at b.i.d. dosing. However, do not see digoxin. Echocardiogram from last year with LVEF of 55-60%. Normal right ventricular size and function. Mildly elevated right atrial pressure. IVC dilated. Other labs reviewed. Hemoglobin 9.7. White cell 6.2. Platelets 280. Potassium 3.5. Creatinine is 0.92. BUN is 18. High sensitivity troponins are well within normal range. Overall, atrial fibrillation with rapid rate could be from holding off on digoxin. Recommend starting it again. There is also discrepancy between what the patient is a send was reconciled. He states he is taking every day. Hence resume digoxin daily after loading dose and monitor EKGs periodically. Will follow as needed. Discussed with psychiatry as well as hospitalist service. Time Spent With Patient Time: Total time managing care of this patient today 75 minutes. This includes time spent in review of chart, laboratory data, imaging studies, counseling patient, discussion with hospitalist, psychiatrist, documentation, coordination of care. Procedures Date of Service Date of Service: 10/12/22
[2022-10-12 11:50] LABS: Glucose, Whole Blood 159 mg/dL (60-115)
[2022-10-12] MEDS: vancomycin HCL 1,000 MG in 0.9 % Sodium Chloride 250 ML 270 MG IV ×2 (11:50→22:42)
[2022-10-12] MEDS: Insulin Lispro 100 UNIT/ML 3 ML VIAL SUBCUT ×2 (11:51→20:13)
[2022-10-12] MEDS: dilTIAZem HCL CD 120 MG CAP.ER.DEG PO (14:04)
[2022-10-12] MEDS: Digoxin 0.25 MG TABLET PO ×2 (14:04→18:50)
--- NOTE | 2022-10-12 16:27 | P.PNPSI_ITS ---
Subjective Subjective Date of Service: 10/12/22 Reason For Visit: Major depressive disorder Interim History: The nursing staff reported the patient had been medically workout and he had x-r ays on his toes and he has osteomyelitis now on IV antibiotics vancomycin. The medical staff also has ask for a Cardiology consult to take care of the digoxin another medications. On interview the patient denies active suicidal ideation, very medically complicated. The neonatal social worker reported that today the sister her son will come a family meeting since the patient cannot take care of himself. Mental Status Exam Mental Status Exam Patient Appearance: Appropriate Patient Orientation: Person and Situation Level of Consciousness: Awake and Appropriate Patient Behavior: Guarded and Passive Mood Description: Withdrawn Affect Description: Constricted Patient Cognition Impaired: Yes Ability to Follow Directions: Good Speech Pattern: Clear Hallucinations: None Delusions: Not Present Thought Process: Distracted and Linear Thought Content: positive for [place] and positive for Circumstantial Judgement: Fair Diagnostics Vital Signs (24Hr): Vital Signs - 24 hr 10/11/22 18:00 10/11/22 23:45 10/12/22 10:50 Temperature 98.6 F Pulse Rate 95 95 Respiratory Rate 18 18 Blood Pressure 112/65 112/65 Pulse Oximetry 97 97 Oxygen Delivery Method Room Air 10/12/22 08:20 10/12/22 14:07 Temperature 97.9 F Pulse Rate 112 H 76 Respiratory Rate 16 Blood Pressure 116/84 107/72 Pulse Oximetry 95 Oxygen Delivery Method Room Air BMI result Body Mass Index 37.9 Labs 10/07/22 10:53 10/12/22 05:11 Labs: Laboratory Results - last 48 hr 10/10/22 10/11/22 10/11/22 20:06 07:50 12:00 ESR Sodium Potassium Chloride Carbon Dioxide Anion Gap BUN Creatinine Estim Creat Clear Calc Estimated GFR POC Glucose 190 H 160 H 185 H Random Glucose Calcium C-Reactive Protein 10/11/22 10/11/22 10/11/22 14:07 14:07 16:40 ESR 18 H Sodium Potassium Chloride Carbon Dioxide Anion Gap BUN Creatinine Estim Creat Clear Calc Estimated GFR POC Glucose 111 Random Glucose Calcium C-Reactive Protein 3.10 H 10/11/22 10/12/22 10/12/22 20:53 05:11 07:52 ESR Sodium 142 Potassium 3.5 Chloride 101 Carbon Dioxide 30 H Anion Gap 15 BUN 18 H Creatinine 0.92 Estim Creat Clear Calc 121.2 Estimated GFR > 60 POC Glucose 161 H 150 H Random Glucose 142 H Calcium 8.6 C-Reactive Protein 10/12/22 11:46 ESR Sodium Potassium Chloride Carbon Dioxide Anion Gap BUN Creatinine Estim Creat Clear Calc Estimated GFR POC Glucose 159 H Random Glucose Calcium C-Reactive Protein Imaging Radiology Impressions: ITS Impressions Hand/Wrist X-Ray 10/07/22 22:07 IMPRESSION: Old healed fracture of the distal shaft of the fifth metacarpal bone and question old or healing fracture of the neck of the fourth metacarpal bone. No acute fracture. Foot X-Ray 10/11/22 12:56 IMPRESSION: RIGHT FOOT: Soft tissue ulceration at the distal aspect of the right great toe. Erosion/lucency through the distal tuft of the 1st distal phalanx, likely indicating osteomyelitis. LEFT FOOT: 1. Soft tissue ulceration along the distal/medial aspect of the great toe with circumferential soft tissue swelling. No radiopaque foreign body. No adjacent cortical erosion or periosteal reaction to suggest acute osteomyelitis, however, this may be occult on plain radiographs. 2. Severe osteoarthritis with prominent bony remodeling throughout the tibiotalar and midfoot joints, similar when compared to the prior radiographs from 2016. Foot X-Ray 10/11/22 12:56 IMPRESSION: RIGHT FOOT: Soft tissue ulceration at the distal aspect of the right great toe. Erosion/lucency through the distal tuft of the 1st distal phalanx, likely indicating osteomyelitis. LEFT FOOT: 1. Soft tissue ulceration along the distal/medial aspect of the great toe with circumferential soft tissue swelling. No radiopaque foreign body. No adjacent cortical erosion or periosteal reaction to suggest acute osteomyelitis, however, this may be occult on plain radiographs. 2. Severe osteoarthritis with prominent bony remodeling throughout the tibiotalar and midfoot joints, similar when compared to the prior radiographs from 2016. Medications Medications Current Medications Acetaminophen (Acetaminophen 325 Mg Tablet) 650 mg PO Q6H PRN PRN Reason: Headache/Pain Mild Scale (1-3) Last Admin: 10/09/22 23:10 Dose: 650 mg Al Hydroxide/Mg Hydroxide (Magnesium Hydrox/Alum Hydrox 30 Ml Oral.Susp) 30 ml PO Q6H PRN PRN Reason: Heartburn/Nausea Albuterol Sulfate (Albuterol Sulfate 90 Mcg 8 Gm Inhaler) 2 puff INHALE Q4H PRN PRN Reason: Shortness Of Breath Apixaban (Apixaban 5 Mg Tablet) 5 mg PO BID PENDING SALE TO [facility] Last Admin: 10/12/22 08:58 Dose: 5 mg Aripiprazole (Aripiprazole 5 Mg Tablet) 7.5 mg PO DAILY PENDING SALE TO [facility] Last Admin: 10/12/22 08:59 Dose: 7.5 mg Atorvastatin Calcium (Atorvastatin Calcium 80 Mg Tablet) 80 mg PO DAILY PENDING SALE TO [facility] Last Admin: 10/12/22 08:57 Dose: 80 mg Digoxin (Digoxin 0.25 Mg Tablet) 0.25 mg PO Q6H PENDING SALE TO [facility] Stop: 10/13/22 06:16 Last Admin: 10/12/22 14:04 Dose: 0.25 mg Diltiazem HCl (Diltiazem Hcl Cd 120 Mg Cap.Er.Deg) 120 mg PO DAILY@11 PENDING SALE TO [facility]; Pro tocol Last Admin: 10/12/22 14:04 Dose: 120 mg Duloxetine HCl (Duloxetine Hcl 60 Mg Capsule.) 60 mg PO BID PENDING SALE TO [facility] Last Admin: 10/12/22 08:56 Dose: 60 mg Ferrous Sulfate (Ferrous Sulfate 324 Mg Tablet.) 324 mg PO MoWeFr@0900 PENDING SALE TO [facility] Last Admin: 10/11/22 08:47 Dose: 324 mg Fluticasone Propionate (Fluticasone Propionate Nasal 16 Gm [place]) 1 spray NOSTRIL-B BID PENDING SALE TO [facility] Last Admin: 10/12/22 09:03 Dose: Not Given Gabapentin (Gabapentin 400 Mg Capsule) 400 mg PO 5XD PENDING SALE TO [facility] Last Admin: 10/12/22 14:05 Dose: 400 mg Glucose (Glucose Gel 15 Gm Gel..Gram.) 15 gm PO Q15M PRN; Protocol PRN Reason: per Hypoglycemia Standing Ord. Hydroxyzine HCl (Hydroxyzine Hcl 25 Mg Tablet) 25 mg PO Q6H PRN PRN Reason: Anxiety Last Admin: 10/09/22 23:11 Dose: 25 mg Hydroxyzine HCl (Hydroxyzine Hcl 25 Mg Tablet) 25 mg PO TID PRN PRN Reason: Anxiety Last Admin: 10/10/22 22:29 Dose: 25 mg Dextrose (D10) 250 mls @ 750 mls/hr IV Q15M PRN; Protocol PRN Reason: per Hypoglycemia Standing Ord. Vancomycin HCl 1,000 mg/ (Sodium Chloride) 270 mls @ 270 mls/hr IV Q12H PENDING SALE TO [facility] Last Admin: 10/12/22 11:50 Dose: 270 mls/hr Aztreonam 2 gm/ Sodium (Chloride) 100 mls @ 200 mls/hr IV Q8H PENDING SALE TO [facility] Last Admin: 10/12/22 13:50 Dose: 200 mls/hr Insulin Human Lispro (Insulin Lispro 100 Unit/Ml 3 Ml Vial) 0 unit SUBCUT QIDACHS PENDING SALE TO [facility]; Protocol Last Admin: 10/12/22 11:51 Dose: 2 unit Lidocaine (Lidocaine 4 % Patch Adh..Patch) 1 patch TRANSDERMA DAILY PENDING SALE TO [facility] Last Admin: 10/12/22 09:04 Dose: Not Given Lorazepam (Lorazepam 1 Mg Tablet) 2 mg PO TID PRN PRN Reason: Anxiety Last Admin: 10/12/22 05:58 Dose: 2 mg Magnesium Hydroxide (Milk Of Magnesia 30 Ml Oral.Susp) 30 ml PO DAILY PRN PRN Reason: Constipation Last Admin: 10/08/22 15:52 Dose: 30 ml Melatonin (Melatonin 3 Mg Tablet) 3 mg PO BEDTIME PRN PRN Reason: Insomnia Last Admin: 10/09/22 23:11 Dose: 3 mg Metformin HCl (Metformin Hcl 1,000 Mg Tablet) 1,000 mg PO DAILY PENDING SALE TO [facility] Last Admin: 10/12/22 09:01 Dose: 1,000 mg Metoprolol Succinate (Metoprolol Succinate Er 25 Mg Tab.Er.24h) 75 mg PO BID PENDING SALE TO [facility]; Protocol Last Admin: 10/12/22 08:58 Dose: 75 mg Nitroglycerin (Nitroglycerin 0.4 Mg Tab.Subl) 0.4 mg SUBLINGUAL Q5M PRN PRN Reason: Chest Pain Nystatin (Nystatin Powder 15 Gm Bottle) 1 appl TOPICAL BID PENDING SALE TO [facility]; Protocol Last Admin: 10/12/22 09:04 Dose: Not Given Omeprazole (Omeprazole 20 Mg Capsule.Dr) 20 mg PO DAILY@0630 PENDING SALE TO [facility] Last Admin: 10/12/22 05:43 Dose: 20 mg Ondansetron HCl (Ondansetron Odt 4 Mg Tab.Rapdis) 4 mg TRANSLINGU Q8H PRN PRN Reason: Nausea Pharmacy Consult (Consult Rx Vancomycin Dosing) 1 each MISCELLANE DAILY PRN PRN Reason: Consult order Phenytoin Sodium (Phenytoin Sodium Extended 100 Mg Capsule) 200 mg PO DAILY PENDING SALE TO [facility] Last Admin: 10/12/22 09:00 Dose: 200 mg Phenytoin Sodium (Phenytoin Sodium Extended 100 Mg Capsule) 400 mg PO BEDTIME PENDING SALE TO [facility] Last Admin: 10/11/22 20:29 Dose: 400 mg Quetiapine Fumarate (Quetiapine Fumarate 100 Mg Tablet) 100 mg PO BEDTIME PRN PRN Reason: Insomnia Last Admin: 10/10/22 22:28 Dose: 100 mg Quetiapine Fumarate (Quetiapine Fumarate 200 Mg Tablet) 200 mg PO BID PENDING SALE TO [facility] Last Admin: 10/12/22 08:58 Dose: 200 mg Senna (Sennosides 8.6 Mg Tablet) 8.6 mg PO DAILY PENDING SALE TO [facility] Last Admin: 10/12/22 08:58 Dose: 8.6 mg Simethicone (Simethicone 80 Mg Tab.Chew) 80 mg PO TID PRN PRN Reason: Indigestion Torsemide (Torsemide 20 Mg Tablet) 40 mg PO DAILY PENDING SALE TO [facility]; Protocol Last Admin: 10/12/22 08:56 Dose: 40 mg Trazodone HCl (Trazodone Hcl 50 Mg Tablet) 50 mg PO BEDTIME MRX1 PRN PRN Reason: Insomnia Trazodone HCl (Trazodone Hcl 50 Mg Tablet) 50 mg PO BEDTIME PENDING SALE TO [facility] Last Admin: 10/11/22 20:30 Dose: 50 mg Allergies Allergies Allergy/AdvReac Type Severity Reaction Status Date / Time aspirin Allergy Severe OCCASIONAL Verified 04/08/22 14:18 RASH / TONGUE SWELLING, Hives, throat swellig bee pollen [BEE STINGS] Allergy Severe ANAPHYLAXIS Verified 04/08/22 14:18 Penicillins Allergy Severe ANAPHYLAXIS Verified 04/08/22 14:18 povidone-iodine [Betadine] Allergy Severe Redness of Verified 04/08/22 14:18 Skin soap [Betadine] Allergy Severe Redness of Verified 04/08/22 14:18 Skin spider venom [SPIDER BITES] Allergy Severe Hives Verified 04/08/22 14:18 amoxicillin Allergy Intermediate Hives Verified 04/08/22 14:18 clindamycin Allergy Mild RASH Verified 04/08/22 14:18 latex [Latex] Allergy Mild RASH Verified 04/08/22 14:18 shrimp Allergy Hives Verified 06/21/22 11:48 bupropion [From WELLBUTRIN] AdvReac Severe SEIZURES Verified 04/08/22 14:18 adhesive tape AdvReac Mild Rash Verified 04/14/22 15:55 Assessment & Plan Assessment & Plan (1) Atrial fibrillation with rapid ventricular response: Status: Acute Code(s): I48.91 - Unspecified atrial fibrillation Plan On checking pulse rate using his radial pulse, his rate is about 110/Min. On the recorded vital signs, some of the pulse rates are well within normal range but some of them are quite high up to 145/Min. With regard to the home regimen, listed to be on diltiazem ER 120 mg daily, metoprolol ER 70 mg daily and digoxin alternate days. Current meds however are diltiazem CD 1 20 mg daily with metoprolol at b.i.d. dosing. However, do not see digoxin. Echocardiogram from last year with LVEF of 55-60%. Normal right ventricular size and function. Mildly elevated right atrial pressure. IVC dilated. Other labs reviewed. Hemoglobin 9.7. White cell 6.2. Platelets 280. Potassium 3.5. Creatinine is 0.92. BUN is 18. High sensitivity troponins are well within normal range. Overall, atrial fibrillation with rapid rate could be from holding off on digoxin. Recommend starting it again. There is also discrepancy between what the patient is a send was reconciled. He states he is taking every day. Hence resume digoxin daily after loading dose and monitor EKGs periodically. Will follow as needed. Discussed with psychiatry as well as hospitalist service. Reason for continued inpatient stay Substantial Risk for: inability to function, rapid decompensation and med/psych decompensation Time Spent With Patient Time: Total time managing care of this patient today __20__ minutes.
[2022-10-12 16:34] LABS: Glucose, Whole Blood 134 mg/dL (60-115)
[2022-10-12 20:04] LABS: Glucose, Whole Blood 166 mg/dL (60-115)
[2022-10-12] MEDS: traZODone HCL 50 MG TABLET PO (20:04)
[2022-10-12] MEDS: Phenytoin Sodium Extended 100 MG CAPSULE 400 MG PO (20:05)
[2022-10-12] MEDS: hydrOXYzine HCL 25 MG TABLET PO (20:13)
[2022-10-12 21:35] LABS: Vancomycin Random 16.1 mcg/mL (15-20)
--- NOTE | 2022-10-12 21:51 | HE.PHANOTE ---
Vancomycin Dosing Level 16.1 today. Patient only received 2 g load dose and one dose of 1000 mg Q12H. Since level is higher in therapeutic range, will get one more dose then another level when patient should be at steady state. Dose may need to be decrease tomorrow after level 10/13 @ 0900. Pharmacy will continue to monitor renal function. Diane Blanco, RandyD
[2022-10-13] VITALS (7 sets, daily range): BP systolic 120–123; BP diastolic 58–69; PULSE 94–113; RESP 16–18; TEMP 37.2; O2SAT 93–95
[2022-10-13] MEDS: Digoxin 0.25 MG TABLET PO ×2 (00:31→06:14)
[2022-10-13] MEDS: Gabapentin 400 MG CAPSULE PO ×5 (06:14→20:29)
[2022-10-13] MEDS: Omeprazole 20 MG CAPSULE.DR PO (06:14)
[2022-10-13 07:54] LABS: Glucose, Whole Blood 194 mg/dL (60-115)
[2022-10-13 08:19] LABS: Creatinine Clr Calc Pharmacy 103.3; Estimated Glomerular Filt Rate > 60
[2022-10-13] MEDS: Insulin Lispro 100 UNIT/ML 3 ML VIAL SUBCUT (08:20)
[2022-10-13 08:21] LABS: Vancomycin Random 16.6 mcg/mL (15-20)
[2022-10-13] MEDS: Metoprolol Succinate ER 25 MG TAB.ER.24H 75 MG PO ×2 (08:21→22:03)
[2022-10-13] MEDS: ARIPiprazole 5 MG TABLET 7.5 MG PO (08:21)
[2022-10-13] MEDS: Torsemide 20 MG TABLET 40 MG PO (08:21)
[2022-10-13] MEDS: metFORMIN HCl 1,000 MG TABLET 1000 MG PO (08:21)
[2022-10-13] MEDS: QUEtiapine Fumarate 200 MG TABLET PO ×2 (08:22→20:30)
[2022-10-13] MEDS: Ferrous Sulfate 324 MG TABLET.DR PO (08:22)
[2022-10-13] MEDS: Phenytoin Sodium Extended 100 MG CAPSULE 200 MG PO (08:22)
[2022-10-13] MEDS: DULoxetine HCl 60 MG CAPSULE.DR PO ×2 (08:22→20:29)
[2022-10-13] MEDS: Apixaban 5 MG TABLET PO ×2 (08:22→20:31)
[2022-10-13] MEDS: Atorvastatin Calcium 80 MG TABLET PO (08:22)
[2022-10-13] MEDS: Sennosides 8.6 MG TABLET PO (08:22)
[2022-10-13] MEDS: hydrOXYzine HCL 25 MG TABLET PO (08:40)
[2022-10-13] MEDS: LORazepam 1 MG TABLET 2 MG PO ×2 (08:40→22:03)
--- NOTE | 2022-10-13 08:43 | HE.PHANOTE ---
Re: vanco dosing Level today 16.1. Renal function stable. With current dosing expect auc consistently around 516. Will get another trough 10/15 @0900 and continue daily creatinine monitoring.
[2022-10-13] MEDS: vancomycin HCL 1,000 MG in 0.9 % Sodium Chloride 250 ML 270 MG IV ×2 (10:18→23:47)
[2022-10-13] MEDS: dilTIAZem HCL CD 120 MG CAP.ER.DEG PO (10:28)
[2022-10-13 11:25] LABS: Glucose, Whole Blood 128 mg/dL (60-115)
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
--- NOTE | 2022-10-13 13:34 | P.CNID_ITS ---
History of Present Illness Data of Consult Service Date: 10/13/22 Requesting physician: Claus Munoz Primary Care Provider: Brown Parada MD HPI Reason for consult: toe wounds He presents to hospital for care of worsening depression. He notes he has had foot wounds bilaterally for years . He has no fever or chills. Hospitalist Team and Wound Care did evaluate foot wounds. XR right foot shows distal first phalanx OM. Review of Systems Review of Systems: Yes all other systems are reviewed and are negative [facility] Past Medical History Medical History (Updated 10/13/22 @ 13:48 by Penny Hayden MD) Anxiety Arthritis Asthma Atrial fibrillation Atrial fibrillation with rapid ventricular response Bladder outlet obstruction Chronic back pain Coronary artery disease Diabetes mellitus, type 2 Fall Hypertension Multifactorial gait disorder Obesity Osteomyelitis of foot PTSD (post-traumatic stress disorder) TIA (transient ischemic attack) Transient ischemic attack (TIA) Weakness Family History Family history: reviewed and not pertinent Social History Social History Household Members: None Housing: Apartment Do you presently have visiting nurse or other home services: Yes Alcohol intake: never Patient Tobacco Use Status: Never used Tobacco Smoked in Last 30 Days: No e-Cigarette/Vaping Use: Never Used Patient Interested in Nicotine Replacement: No Patient Given Instructions on How to Stop Smoking: No Second Hand Smoke Exposure: No Use of substances other than those prescribed or required for medical reasons: No Currently Displaying Signs/Symptoms of Drug Intoxication Withdrawal: No Any prior treatment program specific to substance use: No Have you been hit, kicked, punched, or otherwise hurt by someone within the past year? If so, by whom?: No Do you feel safe in your current relationship?: No Is there a partner from a previous relationship who is making you feel unsafe now?: No Are you made to feel afraid or neglected: No [facility] Healthcare Practices: would like to see a infection control coordinator Advance Directives: Yes Advance Directives on File: Yes Advance Directives Date on File: 07/27/22 Do you have thoughts of harming others: None Do you have a plan to hurt others: No Plan service: No Current occupational status: disabled Sexual orientation: Straight/Heterosexual Meds Allergies Allergy/AdvReac Type Severity Reaction Status Date / Time aspirin Allergy Severe OCCASIONAL Verified 04/08/22 14:18 RASH / TONGUE SWELLING, Hives, throat swellig bee pollen [BEE STINGS] Allergy Severe ANAPHYLAXIS Verified 04/08/22 14:18 Penicillins Allergy Severe ANAPHYLAXIS Verified 04/08/22 14:18 povidone-iodine [Betadine] Allergy Severe Redness of Verified 04/08/22 14:18 Skin soap [Betadine] Allergy Severe Redness of Verified 04/08/22 14:18 Skin spider venom [SPIDER BITES] Allergy Severe Hives Verified 04/08/22 14:18 amoxicillin Allergy Intermediate Hives Verified 04/08/22 14:18 clindamycin Allergy Mild RASH Verified 04/08/22 14:18 latex [Latex] Allergy Mild RASH Verified 04/08/22 14:18 shrimp Allergy Hives Verified 06/21/22 11:48 bupropion [From WELLBUTRIN] AdvReac Severe SEIZURES Verified 04/08/22 14:18 adhesive tape AdvReac Mild Rash Verified 04/14/22 15:55 Active Medications: Current Medications Acetaminophen (Acetaminophen 325 Mg Tablet) 650 mg PO Q6H PRN PRN Reason: Headache/Pain Mild Scale (1-3) Last Admin: 10/09/22 23:10 Dose: 650 mg Al Hydroxide/Mg Hydroxide (Magnesium Hydrox/Alum Hydrox 30 Ml Oral.Susp) 30 ml PO Q6H PRN PRN Reason: Heartburn/Nausea Albuterol Sulfate (Albuterol Sulfate 90 Mcg 8 Gm Inhaler) 2 puff INHALE Q4H PRN PRN Reason: Shortness Of Breath Apixaban (Apixaban 5 Mg Tablet) 5 mg PO BID [facility] Last Admin: 10/13/22 08:22 Dose: 5 mg Aripiprazole (Aripiprazole 5 Mg Tablet) 7.5 mg PO DAILY [facility] Last Admin: 10/13/22 08:21 Dose: 7.5 mg Atorvastatin Calcium (Atorvastatin Calcium 80 Mg Tablet) 80 mg PO DAILY [facility] Last Admin: 10/13/22 08:22 Dose: 80 mg Diltiazem HCl (Diltiazem Hcl Cd 120 Mg Cap.Er.Deg) 120 mg PO DAILY@11 [facility]; Protocol Last Admin: 10/13/22 10:28 Dose: 120 mg Duloxetine HCl (Duloxetine Hcl 60 Mg Capsule.Dr) 60 mg PO BID [facility] Last Admin: 10/13/22 08:22 Dose: 60 mg Ferrous Sulfate (Ferrous Sulfate 324 Mg Tablet.Dr) 324 mg PO MoWeFr@0900 [facility] Last Admin: 10/13/22 08:22 Dose: 324 mg Fluticasone Propionate (Fluticasone Propionate Nasal 16 Gm Sevier) 1 spray NOSTRIL-B BID [facility] Last Admin: 10/13/22 08:23 Dose: Not Given Gabapentin (Gabapentin 400 Mg Capsule) 400 mg PO 5XD [facility] Last Admin: 10/13/22 13:10 Dose: 400 mg Glucose (Glucose Gel 15 Gm Gel..Gram.) 15 gm PO Q15M PRN; Protocol PRN Reason: per Hypoglycemia Standing Ord. Hydroxyzine HCl (Hydroxyzine Hcl 25 Mg Tablet) 25 mg PO Q6H PRN PRN Reason: Anxiety Last Admin: 10/12/22 20:13 Dose: 25 mg Hydroxyzine HCl (Hydroxyzine Hcl 25 Mg Tablet) 25 mg PO TID PRN PRN Reason: Anxiety Last Admin: 10/13/22 08:40 Dose: 25 mg Dextrose (D10) 250 mls @ 750 mls/hr IV Q15M PRN; Protocol PRN Reason: per Hypoglycemia Standing Ord. Vancomycin HCl 1,000 mg/ (Sodium Chloride) 270 mls @ 270 mls/hr IV Q12H [facility] Last Infusion: 10/13/22 11:25 Dose: Infused Aztreonam 2 gm/ Sodium (Chloride) 100 mls @ 200 mls/hr IV Q8H [facility] Last Admin: 10/13/22 13:11 Dose: 200 mls/hr Insulin Human Lispro (Insulin Lispro 100 Unit/Ml 3 Ml Vial) [address] [facility]; Protocol Last Admin: 10/13/22 11:23 Dose: Not Given Lidocaine (Lidocaine 4 % Patch Adh..Patch) 1 patch TRANSDERMA DAILY [facility] Last Admin: 10/13/22 08:23 Dose: Not Given Lorazepam (Lorazepam 1 Mg Tablet) 2 mg PO TID PRN PRN Reason: Anxiety Last Admin: 10/13/22 08:40 Dose: 2 mg Magnesium Hydroxide (Milk Of Magnesia 30 Ml Oral.Susp) 30 ml PO DAILY PRN PRN Reason: Constipation Last Admin: 10/08/22 15:52 Dose: 30 ml Melatonin (Melatonin 3 Mg Tablet) 3 mg PO BEDTIME PRN PRN Reason: Insomnia Last Admin: 10/09/22 23:11 Dose: 3 mg Metformin HCl (Metformin Hcl 1,000 Mg Tablet) 1,000 mg PO DAILY [facility] Last Admin: 10/13/22 08:21 Dose: 1,000 mg Metoprolol Succinate (Metoprolol Succinate Er 25 Mg Tab.Er.24h) 75 mg PO BID [facility]; Protocol Last Admin: 10/13/22 08:21 Dose: 75 mg Nitroglycerin (Nitroglycerin 0.4 Mg Tab.Subl) 0.4 mg SUBLINGUAL Q5M PRN PRN Reason: Chest Pain Nystatin (Nystatin Powder 15 Gm Bottle) 1 appl TOPICAL BID [facility]; Protocol Last Admin: 10/13/22 08:23 Dose: Not Given Omeprazole (Omeprazole 20 Mg Capsule.Dr) 20 mg PO DAILY@0630 [facility] Last Admin: 10/13/22 06:14 Dose: 20 mg Ondansetron HCl (Ondansetron Odt 4 Mg Tab.Rapdis) 4 mg TRANSLINGU Q8H PRN PRN Reason: Nausea Pharmacy Consult (Consult Rx Vancomycin Dosing) 1 each MISCELLANE DAILY PRN PRN Reason: Consult order Phenytoin Sodium (Phenytoin Sodium Extended 100 Mg Capsule) 200 mg PO DAILY [facility] Last Admin: 10/13/22 08:22 Dose: 200 mg Phenytoin Sodium (Phenytoin Sodium Extended 100 Mg Capsule) 400 mg PO BEDTIME [facility] Last Admin: 10/12/22 20:05 Dose: 400 mg Quetiapine Fumarate (Quetiapine Fumarate 100 Mg Tablet) 100 mg PO BEDTIME PRN PRN Reason: Insomnia Last Admin: 10/10/22 22:28 Dose: 100 mg Quetiapine Fumarate (Quetiapine Fumarate 200 Mg Tablet) 200 mg PO BID [facility] Last Admin: 10/13/22 08:22 Dose: 200 mg Senna (Sennosides 8.6 Mg Tablet) 8.6 mg PO DAILY [facility] Last Admin: 10/13/22 08:22 Dose: 8.6 mg Simethicone (Simethicone 80 Mg Tab.Chew) 80 mg PO TID PRN PRN Reason: Indigestion Torsemide (Torsemide 20 Mg Tablet) 40 mg PO DAILY [facility]; Protocol Last Admin: 10/13/22 08:21 Dose: 40 mg Trazodone HCl (Trazodone Hcl 50 Mg Tablet) 50 mg PO BEDTIME MRX1 PRN PRN Reason: Insomnia Trazodone HCl (Trazodone Hcl 50 Mg Tablet) 50 mg PO BEDTIME [facility] Last Admin: 10/12/22 20:04 Dose: 50 mg Home Medications Medication Instructions Recorded Confirmed Last Taken Type apixaban 5 mg tablet (Eliquis) 1 tab PO BID 07/08/22 10/04/22 Unknown History hydroxyzine HCl 25 mg tablet 1 tab PO TID PRN Anxiety 07/08/22 10/04/22 Unknown History lorazepam 2 mg tablet 1 tab PO TID PRN Anxiety 07/08/22 10/04/22 Unknown History metformin 1,000 mg tablet 1 tab PO DAILY 07/08/22 10/04/22 Unknown History oxycodone 5 mg tablet 1 tab PO TID PRN Pain 07/08/22 10/04/22 Unknown History pantoprazole 40 mg tablet,delayed 1 tab PO DAILY@0630 07/08/22 10/04/22 Unknown History release phenytoin sodium extended 100 mg 200 mg PO DAILY 07/08/22 10/04/22 Unknown History capsule trazodone 50 mg tablet 1 tab PO BEDTIME 07/08/22 10/04/22 Unknown History acetaminophen 500 mg tablet 1,000 mg PO BID PRN Pain 07/09/22 10/04/22 Unknown History albuterol sulfate 90 mcg/actuation 2 puff inhalation Q4-6H PRN 07/09/22 10/04/22 Unknown History aerosol inhaler (ProAir HFA) Shortness Of Breath atorvastatin 80 mg tablet 1 tab PO DAILY 07/09/22 10/04/22 Unknown History digoxin 125 mcg (0.125 mg) tablet 1 tab PO Q2D 07/09/22 07/28/22 Unknown History duloxetine 30 mg capsule,delayed 30 mg PO DAILY 07/09/22 07/28/22 Unknown History release duloxetine 30 mg capsule,delayed 60 mg PO BID 07/09/22 10/04/22 Unknown History release fluticasone propionate 50 1 spray intranasal BID 07/09/22 10/04/22 Unknown History mcg/actuation nasal spray,suspension gabapentin 400 mg capsule 1 cap PO 5XD 07/09/22 10/04/22 Unknown History insulin glargine 100 unit/mL (3 20 unit subcut BEDTIME 07/09/22 07/28/22 Unknown History mL) subcutaneous pen (Lantus Solostar U-100 Insulin) insulin lispro 100 unit/mL 2 - 10 unit subcut TIDAC 07/09/22 10/04/22 Unknown History subcutaneous pen phenytoin sodium extended 100 mg 400 mg PO BEDTIME 07/09/22 10/04/22 Unknown History capsule quetiapine 100 mg tablet 1 tab PO BEDTIME PRN Insomnia 07/09/22 10/04/22 Unknown History quetiapine 200 mg tablet 1 tab PO BID 07/09/22 10/04/22 Unknown History torsemide 20 mg tablet 1 tab PO DAILY 07/09/22 10/04/22 Unknown History empagliflozin 10 mg tablet 10 mg PO DAILY 07/30/22 07/30/22 Unknown History (Jardiance) ferrous sulfate 324 mg (65 mg 324 mg PO DIRECTED 07/30/22 10/04/22 Unknown History iron) tablet,delayed release aripiprazole 5 mg tablet 7.5 mg PO DAILY 10/04/22 10/04/22 Unknown History calamine See Rx Instructions .Route .COMPLEX 10/04/22 10/04/22 Unknown History diltiazem HCl 120 mg capsule,24 120 mg PO DAILY@11 10/04/22 10/04/22 Unknown History hr,extended release lidocaine 5 % topical patch 1 patch topical DAILY 10/04/22 10/04/22 Unknown History melatonin 3 mg tablet 3 mg PO BEDTIME PRN Insomnia 10/04/22 10/04/22 Unknown History metoprolol succinate 25 mg 75 mg PO DAILY 10/04/22 10/04/22 Unknown History tablet,extended release 24 hr nitroglycerin 0.4 mg sublingual 0.4 mg sublingual Q5M PRN Chest 10/04/22 10/04/22 Unknown History tablet Pain nystatin 100,000 unit/gram topical 1 appl topical BID 10/04/22 10/04/22 Unknown History powder ondansetron 4 mg disintegrating 4 mg PO Q6H PRN Nausea 10/04/22 10/04/22 Unknown History tablet sennosides 8.6 mg tablet (senna) 8.6 mg PO DAILY 10/04/22 10/04/22 Unknown History simethicone 80 mg tablet 80 mg PO TID PRN Indigestion 10/04/22 10/04/22 Unknown History Physical Exam Vital Signs: Vital Signs: Last Vital Signs Temp 98.1 F 10/12/22 20:00 Pulse 104 H 10/13/22 10:53 Resp 18 10/13/22 08:03 BP 123/69 10/13/22 10:53 Pulse Ox 95 10/13/22 08:03 O2 Del Method Room Air 10/13/22 08:03 O2 Flow Rate 93 10/12/22 00:30 FiO2 91 10/13/22 06:17 BMI result Body Mass Index 37.9 Const: General: cooperative HEENT: Head: Yes normal to inspection Face and sinus: Yes normal facial exam Mouth: Normal oral and palatal mucosa present Teeth and gingiva: dentition normal Eyes: General: appearance normal, both eyes and all related structures Pupils: Equal, round and reactive pupils present Resp: Effort & Inspection: normal respiratory effort Cardio: Rate: regular rate Rhythm: regular rhythm GI: Palpation (GI): Soft to palpation and nontender : General: Yes no CVA tenderness Back/Spine/Pelvis: Back: no CVA tenderness Skin: General skin exam: no rashes or lesions noted Neuro: General: moves all extremities Cranial nerves: Yes Equal, round and reactive pupils present Extrem: Other: left and right great toe abrasion/swelling neuropathy feet pulses plus two Psych: Appearance: grossly normal Results Labs 10/07/22 10:53 10/13/22 07:47 Labs: BMP 10/13/22 07:47 Creatinine 1.08 Microbiology Microbiology Results: Microbiology 10/11/22 20:08 Blood - Venous Blood Culture - Preliminary No growth after 24 hours. 10/11/22 20:08 Blood - Venous Blood Culture - Preliminary No growth after 24 hours. Assessment and Plan (1) Osteomyelitis of foot: Status: Acute He has osteomyelitis distal first phalanx. It is not clear how long this has been present but wounds have been present mo nths or years according to patient. Organism is not clear. Diabetes and neuropathy are risk Plan Since patient has Penicillin allergy (tells me hives) would give Vancomycin dose adjusted to trough 10-15 for six weeks IV and then po Doxycycline for a month or two. If new culture information appears will adjust if needed but likely staph or strep. He needs PICC line and weekly lab draws and send me result information. Make sure no Vascular issue needs addressing Follow with myself and Wound Clinic outpatient. Time Spent With Patient Time: Total time managing care of this patient today ____ minutes.
[2022-10-13 16:17] LABS: Glucose, Whole Blood 121 mg/dL (60-115)
--- NOTE | 2022-10-13 16:23 | PC.NURSE ---
pt wanted to get OOB for Dinner when staff approached pt with adrian lift, pt stated If you come near me with that thing, I will pound the shit out of everybody. pt started swinging his hands in the air to strike staff. Dobby Loom Fixer educated pt on the importance of using the lift,, pt stated Im not going to use that thing Ill stay in bed the whole time Im here .
--- NOTE | 2022-10-13 19:12 | PM.EVENT ---
Event Note Date of Service: 10/13/22 Event Note: Pt with osteomyelitis right great toe. Seen by ID. Will need 6 weeks IV abx with vancomycin (see note)- likely staph or strep pathogen. Will need PICC line placed once final blood cultures negative. Preliminary results are negative, final cultures pending. Continue Vanco and azactam until cultures final cultures resulted. DC azactam if no growth on cultures. Will rule out vascular pathology contributing to osteomyelitis with arterial doppler. Will continue following for final cultures and recommendation. Time Spent With Patient Time: Total time managing care of this patient today ____ minutes.
[2022-10-13] MEDS: Albuterol Sulfate 90 MCG 8 GM INHALER 2 PUFF INHALE (20:21)
[2022-10-13] MEDS: Phenytoin Sodium Extended 100 MG CAPSULE 400 MG PO (20:29)
[2022-10-13] MEDS: traZODone HCL 50 MG TABLET PO (20:30)
[2022-10-13] MEDS: Fluticasone Propionate Nasal 16 GM SPRAY 1 SPRAY NOSTRIL-B (20:31)
[2022-10-13 21:37] LABS: Glucose, Whole Blood 141 mg/dL (60-115)
[2022-10-13] MEDS: Nystatin Powder 15 GM BOTTLE 1 APPL TOPICAL (22:06)
[2022-10-14 03:13] VITALS: PULSE 74; O2SAT 92
[2022-10-14] MEDS: Gabapentin 400 MG CAPSULE PO ×5 (06:03→21:24)
[2022-10-14] MEDS: Omeprazole 20 MG CAPSULE.DR PO (06:03)
[2022-10-14 07:55] LABS: Glucose, Whole Blood 162 mg/dL (60-115)
[2022-10-14 08:17] LABS: Creatinine Clr Calc Pharmacy 129.7; Estimated Glomerular Filt Rate > 60
--- NOTE | 2022-10-14 08:24 | HO.PSYCHPN ---
Subjective Subjective Date of Service: 10/14/22 Reason For Visit: Major depressive disorder Subjective Notes: Conditional Voluntary Interim History: The nursing staff reported the patient had being anxious and depressed but no suicidal ideation. He has been medication compliant. Today I contact the medical team for the PICC line. He will be continued to be followed by the medical team. The occupational therapist will re-attempt to the cognitive assessment today. The group social worker reported the care worker from [facility] came today and brought more information. Mental Status Exam Mental Status Exam Patient Appearance: Well Grooomed and Appropriate Patient Orientation: Person and Situation Level of Consciousness: Awake Patient Behavior: Guarded and Passive Mood Description: Withdrawn Affect Description: Constricted Patient Cognition Impaired: Yes Ability to Follow Directions: Good Speech Pattern: Clear Hallucinations: None Delusions: Not Present Thought Process: Linear Thought Content: positive for Circumstantial Judgement: Fair Diagnostics Vital Signs (24Hr): Vital Signs - 24 hr 10/13/22 10:25 10/13/22 10:53 10/13/22 18:00 Temperature 99 F Pulse Rate 104 H 104 H 113 H Respiratory Rate 18 Blood Pressure 123/69 123/69 122/58 L Pulse Oximetry 94 Oxygen Delivery Method Room Air 10/13/22 22:27 Temperature Pulse Rate Respiratory Rate 18 Blood Pressure Pulse Oximetry Oxygen Delivery Method BMI result Body Mass Index 37.9 Labs 10/07/22 10:53 10/14/22 07:56 Labs: Laboratory Results - last 48 hr 10/12/22 10/12/22 10/12/22 11:46 16:29 19:55 Creatinine Estim Creat Clear Calc Estimated GFR POC Glucose 159 H 134 H 166 H Random Vancomycin 10/12/22 10/13/22 10/13/22 21:03 07:47 07:47 Creatinine 1.08 Estim Creat Clear Calc 103.3 Estimated GFR > 60 POC Glucose Random Vancomycin 16.1 16.6 10/13/22 10/13/22 10/13/22 07:51 11:14 16:12 Creatinine Estim Creat Clear Calc Estimated GFR POC Glucose 194 H 128 H 121 H Random Vancomycin 10/13/22 10/14/22 10/14/22 21:30 07:42 07:56 Creatinine 0.86 Estim Creat Clear Calc 129.7 Estimated GFR > 60 POC Glucose 141 H 162 H Random Vancomycin Imaging Radiology Impressions: ITS Impressions Hand/Wrist X-Ray 10/07/22 22:07 IMPRESSION: Old healed fracture of the distal shaft of the fifth metacarpal bone and question old or healing fracture of the neck of the fourth metacarpal bone. No acute fracture. Foot X-Ray 10/11/22 12:56 IMPRESSION: RIGHT FOOT: Soft tissue ulceration at the distal aspect of the right great toe. Erosion/lucency through the distal tuft of the 1st distal phalanx, likely indicating osteomyelitis. LEFT FOOT: 1. Soft tissue ulceration along the distal/medial aspect of the great toe with circumferential soft tissue swelling. No radiopaque foreign body. No adjacent cortical erosion or periosteal reaction to suggest acute osteomyelitis, however, this may be occult on plain radiographs. 2. Severe osteoarthritis with prominent bony remodeling throughout the tibiotalar and midfoot joints, similar when compared to the prior radiographs from 2016. Foot X-Ray 10/11/22 12:56 IMPRESSION: RIGHT FOOT: Soft tissue ulceration at the distal aspect of the right great toe. Erosion/lucency through the distal tuft of the 1st distal phalanx, likely indicating osteomyelitis. LEFT FOOT: 1. Soft tissue ulceration along the distal/medial aspect of the great toe with circumferential soft tissue swelling. No radiopaque foreign body. No adjacent cortical erosion or periosteal reaction to suggest acute osteomyelitis, however, this may be occult on plain radiographs. 2. Severe osteoarthritis with prominent bony remodeling throughout the tibiotalar and midfoot joints, similar when compared to the prior radiographs from 2016. Medications Medications Current Medications Acetaminophen (Acetaminophen 325 Mg Tablet) 650 mg PO Q6H PRN PRN Reason: Headache/Pain Mild Scale (1-3) Last Admin: 10/09/22 23:10 Dose: 650 mg Al Hydroxide/Mg Hydroxide (Magnesium Hydrox/Alum Hydrox 30 Ml Oral.Susp) 30 ml PO Q6H PRN PRN Reason: Heartburn/Nausea Albuterol Sulfate (Albuterol Sulfate 90 Mcg 8 Gm Inhaler) 2 puff INHALE Q4H PRN PRN Reason: Shortness Of Breath Last Admin: 10/13/22 20:21 Dose: 2 puff Apixaban (Apixaban 5 Mg Tablet) 5 mg PO BID [facility] Last Admin: 10/13/22 20:31 Dose: 5 mg Aripiprazole (Aripiprazole 5 Mg Tablet) 7.5 mg PO DAILY [facility] Last Admin: 10/13/22 08:21 Dose: 7.5 mg Atorvastatin Calcium (Atorvastatin Calcium 80 Mg Tablet) 80 mg PO DAILY [facility] Last Admin: 10/13/22 08:22 Dose: 80 mg Diltiazem HCl (Diltiazem Hcl Cd 120 Mg Cap.Er.Deg) 120 mg PO DAILY@11 [facility]; Protocol Last Admin: 10/13/22 10:28 Dose: 120 mg Duloxetine HCl (Duloxetine Hcl 60 Mg Capsule.) 60 mg PO BID [facility] Last Admin: 10/13/22 20:29 Dose: 60 mg Ferrous Sulfate (Ferrous Sulfate 324 Mg Tablet.Dr) 324 mg PO MoWeFr@0900 [facility] Last Admin: 10/13/22 08:22 Dose: 324 mg Fluticasone Propionate (Fluticasone Propionate Nasal 16 Gm Sparkman) 1 spray NOSTRIL-B BID [facility] Last Admin: 10/13/22 20:31 Dose: 1 spray Gabapentin (Gabapentin 400 Mg Capsule) 400 mg PO 5XD [facility] Last Admin: 10/14/22 06:03 Dose: 400 mg Glucose (Glucose Gel 15 Gm Gel..Gram.) 15 gm PO Q15M PRN; Protocol PRN Reason: per Hypoglycemia Standing Ord. Hydroxyzine HCl (Hydroxyzine Hcl 25 Mg Tablet) 25 mg PO Q6H PRN PRN Reason: Anxiety Last Admin: 10/12/22 20:13 Dose: 25 mg Hydroxyzine HCl (Hydroxyzine Hcl 25 Mg Tablet) 25 mg PO TID PRN PRN Reason: Anxiety Last Admin: 10/13/22 08:40 Dose: 25 mg Dextrose (D10) 250 mls @ 750 mls/hr IV Q15M PRN; Protocol PRN Reason: per Hypoglycemia Standing Ord. Vancomycin HCl 1,000 mg/ (Sodium Chloride) 270 mls @ 270 mls/hr IV Q12H [facility] Last Infusion: 10/14/22 01:04 Dose: Infused Aztreonam 2 gm/ Sodium (Chloride) 100 mls @ 200 mls/hr IV Q8H [facility] Last Infusion: 10/14/22 04:40 Dose: Infused Insulin Human Lispro (Insulin Lispro 100 Unit/Ml 3 Ml Vial) 0 unit SUBCUT QIDACHS [facility]; Protocol Last Admin: 10/13/22 21:32 Dose: Not Given Lidocaine (Lidocaine 4 % Patch Adh..Patch) 1 patch TRANSDERMA DAILY [facility] Last Admin: 10/13/22 08:23 Dose: Not Given Lorazepam (Lorazepam 1 Mg Tablet) 2 mg PO TID PRN PRN Reason: Anxiety Last Admin: 10/13/22 22:03 Dose: 2 mg Magnesium Hydroxide (Milk Of Magnesia 30 Ml Oral.Susp) 30 ml PO DAILY PRN PRN Reason: Constipation Last Admin: 10/08/22 15:52 Dose: 30 ml Melatonin (Melatonin 3 Mg Tablet) 3 mg PO BEDTIME PRN PRN Reason: Insomnia Last Admin: 10/09/22 23:11 Dose: 3 mg Metformin HCl (Metformin Hcl 1,000 Mg Tablet) 1,000 mg PO DAILY [facility] Last Admin: 10/13/22 08:21 Dose: 1,000 mg Metoprolol Succinate (Metoprolol Succinate Er 25 Mg Tab.Er.24h) 75 mg PO BID [facility]; Protocol Last Admin: 10/13/22 22:03 Dose: 75 mg Nitroglycerin (Nitroglycerin 0.4 Mg Tab.Subl) 0.4 mg SUBLINGUAL Q5M PRN PRN Reason: Chest Pain Nystatin (Nystatin Powder 15 Gm Bottle) 1 appl TOPICAL BID [facility]; Protocol Last Admin: 10/13/22 22:06 Dose: 1 appl Omeprazole (Omeprazole 20 Mg Capsule.Dr) 20 mg PO DAILY@0630 [facility] Last Admin: 10/14/22 06:03 Dose: 20 mg Ondansetron HCl (Ondansetron Odt 4 Mg Tab.Rapdis) 4 mg TRANSLINGU Q8H PRN PRN Reason: Nausea Pharmacy Consult (Consult Rx Vancomycin Dosing) 1 each MISCELLANE DAILY PRN PRN Reason: Consult order Phenytoin Sodium (Phenytoin Sodium Extended 100 Mg Capsule) 200 mg PO DAILY [facility] Last Admin: 10/13/22 08:22 Dose: 200 mg Phenytoin Sodium (Phenytoin Sodium Extended 100 Mg Capsule) 400 mg PO BEDTIME [facility] Last Admin: 10/13/22 20:29 Dose: 400 mg Quetiapine Fumarate (Quetiapine Fumarate 100 Mg Tablet) 100 mg PO BEDTIME PRN PRN Reason: Insomnia Last Admin: 10/10/22 22:28 Dose: 100 mg Quetiapine Fumarate (Quetiapine Fumarate 200 Mg Tablet) 200 mg PO BID [facility] Last Admin: 10/13/22 20:30 Dose: 200 mg Senna (Sennosides 8.6 Mg Tablet) 8.6 mg PO DAILY [facility] Last Admin: 10/13/22 08:22 Dose: 8.6 mg Simethicone (Simethicone 80 Mg Tab.Chew) 80 mg PO TID PRN PRN Reason: Indigestion Torsemide (Torsemide 20 Mg Tablet) 40 mg PO DAILY [facility]; Protocol Last Admin: 10/13/22 08:21 Dose: 40 mg Trazodone HCl (Trazodone Hcl 50 Mg Tablet) 50 mg PO BEDTIME MRX1 PRN PRN Reason: Insomnia Trazodone HCl (Trazodone Hcl 50 Mg Tablet) 50 mg PO BEDTIME [facility] Last Admin: 10/13/22 20:30 Dose: 50 mg Allergies Allergies Allergy/AdvReac Type Severity Reaction Status Date / Time aspirin Allergy Severe OCCASIONAL Verified 04/08/22 14:18 RASH / TONGUE SWELLING, Hives, throat swellig bee pollen [BEE STINGS] Allergy Severe ANAPHYLAXIS Verified 04/08/22 14:18 Penicillins Allergy Severe ANAPHYLAXIS Verified 04/08/22 14:18 povidone-iodine [Betadine] Allergy Severe Redness of Verified 04/08/22 14:18 Skin soap [Betadine] Allergy Severe Redness of Verified 04/08/22 14:18 Skin spider venom [SPIDER BITES] Allergy Severe Hives Verified 04/08/22 14:18 amoxicillin Allergy Intermediate Hives Verified 04/08/22 14:18 clindamycin Allergy Mild RASH Verified 04/08/22 14:18 latex [Latex] Allergy Mild RASH Verified 04/08/22 14:18 shrimp Allergy Hives Verified 06/21/22 11:48 bupropion [From WELLBUTRIN] AdvReac Severe SEIZURES Verified 04/08/22 14:18 adhesive tape AdvReac Mild Rash Verified 04/14/22 15:55 Assessment & Plan Assessment & Plan (1) Atrial fibrillation with rapid ventricular response: Status: Acute Code(s): I48.91 - Unspecified atrial fibrillation Plan On checking pulse rate using his radial pulse, his rate is about 110/Min. On the recorded vital signs, some of the pulse rates are well within normal range but some of them are quite high up to 145/Min. With regard to the home regimen, listed to be on diltiazem ER 120 mg daily, metoprolol ER 70 mg daily and digoxin alternate days. Current meds however are diltiazem CD 1 20 mg daily with metoprolol at b.i.d. dosing. However, do not see digoxin. Echocardiogram from last year with LVEF of 55-60%. Normal right ventricular size and function. Mildly elevated right atrial pressure. IVC dilated. Other labs reviewed. Hemoglobin 9.7. White cell 6.2. Platelets 280. Potassium 3.5. Creatinine is 0.92. BUN is 18. High sensitivity troponins are well within normal range. Overall, atrial fibrillation with rapid rate could be from holding off on digoxin. Recommend starting it again. There is also discrepancy between what the patient is a send was reconciled. He states he is taking every day. Hence resume digoxin daily after loading dose and monitor EKGs periodically. Will follow as needed. Discussed with psychiatry as well as hospitalist service. Reason for continued inpatient stay Substantial Risk for: inability to function, rapid decompensation and med/psych decompensation Time Spent With Patient Time: Total time managing care of this patient today __20__ minutes.
[2022-10-14 08:30] VITALS: BP 90/63; PULSE 80; RESP 18; TEMP 36.6; O2SAT 96
[2022-10-14] MEDS: metFORMIN HCl 1,000 MG TABLET 1000 MG PO (09:53)
[2022-10-14] MEDS: Atorvastatin Calcium 80 MG TABLET PO (09:53)
[2022-10-14] MEDS: DULoxetine HCl 60 MG CAPSULE.DR PO ×2 (09:53→21:23)
[2022-10-14] MEDS: Phenytoin Sodium Extended 100 MG CAPSULE 200 MG PO (09:54)
[2022-10-14] MEDS: Apixaban 5 MG TABLET PO ×2 (09:55→21:24)
[2022-10-14] MEDS: QUEtiapine Fumarate 200 MG TABLET PO ×2 (09:55→21:25)
[2022-10-14] MEDS: ARIPiprazole 5 MG TABLET 7.5 MG PO (09:56)
[2022-10-14] MEDS: Insulin Lispro 100 UNIT/ML 3 ML VIAL SUBCUT ×2 (09:58→11:37)
[2022-10-14] MEDS: Fluticasone Propionate Nasal 16 GM SPRAY 1 SPRAY NOSTRIL-B ×2 (10:08→22:03)
[2022-10-14] MEDS: LORazepam 1 MG TABLET 2 MG PO (10:25)
[2022-10-14] MEDS: hydrOXYzine HCL 25 MG TABLET PO ×2 (10:26→18:05)
[2022-10-14 11:30] LABS: Glucose, Whole Blood 177 mg/dL (60-115)
[2022-10-14 11:36] VITALS: BP 90/63; PULSE 80; O2SAT 96
--- NOTE | 2022-10-14 13:57 | PC.NURSE ---
0830 left A/C peripheral access, unable to get blood return and flush. commercial sales manager will arrange for PICC line for IV meds.
--- NOTE | 2022-10-14 13:59 | PC.NURSE ---
left A/C peripheral IV Dc/d catheter intact
--- NOTE | 2022-10-14 14:49 | PC.NURSE ---
wound dressing on big toes and right diaz at 1400 at 10/14/22. silver alginate was applied to all the dressings and a non adherent dressing was applied. wounds had no drainage and were red and healing. the skin was pink around the wound.
[2022-10-14 16:35] LABS: Glucose, Whole Blood 109 mg/dL (60-115)
[2022-10-14 18:00] VITALS: BP 125/59; PULSE 106; RESP 18; TEMP 36.9; O2SAT 93
--- NOTE | 2022-10-14 18:42 | PC.NURSE ---
Was reported to this RN at 1500 shift change that patient had no peripheral IV access and was to get at PICC line, thus he was not given his 1100 dose of IV Vancomycin by the day shift RN. This RN communicated with clinical coordinator, Valerie Rae, that she was working with Dr. Claus Munoz on getting a PICC line. Dr. Munoz reported at about 1700 that JORDAN ORTEGA was aware of PICC. This RN then communicated with Adrian and was told he would not be getting a PICC line until Tuesday (10/15/2022) Or Tuesday (10/18/2022). Adrian and this RN agreed a peripheral IV will be placed today to ensure patient does not miss another dose of antibiotics. Construction Administrative Assistant notified that patient will need peripheral IV access.
[2022-10-14 20:24] LABS: Glucose, Whole Blood 130 mg/dL (60-115)
[2022-10-14] MEDS: Phenytoin Sodium Extended 100 MG CAPSULE 400 MG PO (21:22)
[2022-10-14] MEDS: Metoprolol Succinate ER 25 MG TAB.ER.24H 75 MG PO (21:25)
[2022-10-14] MEDS: traZODone HCL 50 MG TABLET PO (21:26)
--- NOTE | 2022-10-14 22:20 | PC.NURSE ---
Patient with multiple IV medications ordered and no IV access. This RN attempted two venipunctures in the left AC and the right dorsal forearm with no access. Nursing supervisor malt house contacted and to bedside with two attempts at venipuncture with no access. notified. IV medications held due to lack of access at this time.
[2022-10-14 22:31] VITALS: BP 125/59; PULSE 106; RESP 18; TEMP 36.9; O2SAT 93
[2022-10-14 23:10] VITALS: PULSE 101; O2SAT 93
[2022-10-15] MEDS: Omeprazole 20 MG CAPSULE.DR PO (05:52)
[2022-10-15] MEDS: Gabapentin 400 MG CAPSULE PO ×5 (05:52→21:21)
[2022-10-15 08:15] VITALS: BP 138/63; PULSE 88; RESP 18; TEMP 36.1; O2SAT 95
[2022-10-15 08:33] LABS: Vancomycin Random 9.5 mcg/mL (15-20)
[2022-10-15 08:34] LABS: Estimated Glomerular Filt Rate > 60
[2022-10-15 08:49] LABS: Glucose, Whole Blood 195 mg/dL (60-115)
[2022-10-15] MEDS: Insulin Lispro 100 UNIT/ML 3 ML VIAL SUBCUT ×2 (09:09→22:06)
[2022-10-15] MEDS: Apixaban 5 MG TABLET PO ×2 (09:10→21:23)
[2022-10-15] MEDS: DULoxetine HCl 60 MG CAPSULE.DR PO ×2 (09:10→21:20)
[2022-10-15] MEDS: Metoprolol Succinate ER 25 MG TAB.ER.24H 75 MG PO ×2 (09:11→21:19)
[2022-10-15] MEDS: Sennosides 8.6 MG TABLET PO (09:11)
[2022-10-15] MEDS: Phenytoin Sodium Extended 100 MG CAPSULE 200 MG PO (09:11)
[2022-10-15] MEDS: QUEtiapine Fumarate 200 MG TABLET PO ×2 (09:12→21:23)
[2022-10-15] MEDS: Ferrous Sulfate 324 MG TABLET.DR PO (09:13)
[2022-10-15] MEDS: Atorvastatin Calcium 80 MG TABLET PO (09:13)
[2022-10-15] MEDS: ARIPiprazole 5 MG TABLET 7.5 MG PO (09:14)
[2022-10-15] MEDS: metFORMIN HCl 1,000 MG TABLET 1000 MG PO (09:14)
[2022-10-15] MEDS: Fluticasone Propionate Nasal 16 GM SPRAY 1 SPRAY NOSTRIL-B (09:21)
[2022-10-15] MEDS: Torsemide 20 MG TABLET 40 MG PO (10:19)
--- NOTE | 2022-10-15 11:10 | HE.PHANOTE ---
RE: vanco/IV access Spoke to both Angelique and Miguelina on 10/15/22, pt had lost IV access and missed all doses on 10/14. Miguelina communicated to me that pt will be getting a PICC line today, asked for vanco to be re-timed for 1300. Will get next level after two doses on 10/16/22 @1100
--- NOTE | 2022-10-15 14:02 | HO.PICC ---
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 Following completion of [place] Protocol the skin and soft tissues were anesthetized with 1% Lidocaine plain. Using ultrasound guidance, the right basilic vein access was obtained in a single attempt by this RN. Over an 0.018 wire through peel-away sheath, a 4 haitian single lumen PASV PICC line was positioned. Catheter length is 46 cm internal length, 0 cm external length, for a total trimmed length of 46 cm. The procedure was performed in S272. Tip verification was verified by Chest Xray per Dr. Hancock. Ultrasound was used to document vein patency and for needle entry. A formal ultrasound picture was recorded. Vascular Mule Developer has released the line for use and it is currently dressed with a StatLock, Tegaderm, and CHG disc. Verification has been performed for blood return and line patency. Arm Circumference: 47 cm Equipment: Bex PowerPICC Solo Catheter Type: 4 haitian single lumen PASV PICC Lot #: [id number]
[2022-10-15] MEDS: vancomycin HCL 1,000 MG in 0.9 % Sodium Chloride 250 ML 270 MG IV (14:27)
[2022-10-15] MEDS: dilTIAZem HCL CD 120 MG CAP.ER.DEG PO (14:28)
[2022-10-15 14:45] LABS: Glucose, Whole Blood 123 mg/dL (60-115)
[2022-10-15 14:51] VITALS: BP 104/58; PULSE 81
--- NOTE | 2022-10-15 15:00 | P.PNPSI_ITS ---
Subjective Subjective Date of Service: 10/15/22 Reason For Visit: Major depressive disorder Subjective Notes: Conditional Voluntary Interim History: The nursing staff reported that last night could not have IV access, they have tried a 3 or 4 times by the from staff and they could not get the right 1 so he could not get his vancomycin. Today we discussed the case with the chief drafter and they are going to get the PICC line today. On interview the patient denies new symptoms, still medically compromised with IV antibiotics. Mental Status Exam Mental Status Exam Patient Appearance: Appropriate Patient Orientation: Person and Situation Level of Consciousness: Awake and Appropriate Patient Behavior: Guarded and Passive Mood Description: Withdrawn Affect Description: Constricted Patient Cognition Impaired: Yes Ability to Follow Directions: Good Speech Pattern: Clear Hallucinations: None Delusions: Not Present Thought Process: Distracted Thought Content: positive for [place] Judgement: Fair Diagnostics Vital Signs (24Hr): Vital Signs - 24 hr 10/14/22 18:00 10/14/22 22:31 10/15/22 08:15 Temperature 98.4 F 98.4 F 97.0 F Pulse Rate 106 H 106 H 88 Respiratory Rate 18 18 18 Blood Pressure 125/59 L 125/59 L 138/63 Pulse Oximetry 93 93 95 Oxygen Delivery Method Room Air Room Air Room Air 10/15/22 14:51 Temperature Pulse Rate 81 Respiratory Rate Blood Pressure 104/58 L Pulse Oximetry Oxygen Delivery Method BMI result Body Mass Index 37.9 Labs 10/07/22 10:53 10/15/22 07:53 Labs: Laboratory Results - last 48 hr 10/13/22 10/13/22 10/14/22 16:12 21:30 07:42 Creatinine Estim Creat Clear Calc Estimated GFR POC Glucose 121 H 141 H 162 H Random Vancomycin 10/14/22 10/14/22 10/14/22 07:56 11:26 16:30 Creatinine 0.86 Estim Creat Clear Calc 129.7 Estimated GFR > 60 POC Glucose 177 H 109 Random Vancomycin 10/14/22 10/15/22 10/15/22 20:12 07:53 07:53 Creatinine 0.78 Estim Creat Clear Calc 143.0 Estimated GFR > 60 POC Glucose 130 H Random Vancomycin 9.5 L 10/15/22 10/15/22 08:28 14:30 Creatinine Estim Creat Clear Calc Estimated GFR POC Glucose 195 H 123 H Random Vancomycin Imaging Radiology Impressions: ITS Impressions Hand/Wrist X-Ray 10/07/22 22:07 IMPRESSION: Old healed fracture of the distal shaft of the fifth metacarpal bone and question old or healing fracture of the neck of the fourth metacarpal bone. No acute fracture. Foot X-Ray 10/11/22 12:56 IMPRESSION: RIGHT FOOT: Soft tissue ulceration at the distal aspect of the right great toe. Erosion/lucency through the distal tuft of the 1st distal phalanx, likely indicating osteomyelitis. LEFT FOOT: 1. Soft tissue ulceration along the distal/medial aspect of the great toe with circumferential soft tissue swelling. No radiopaque foreign body. No adjacent cortical erosion or periosteal reaction to suggest acute osteomyelitis, however, this may be occult on plain radiographs. 2. Severe osteoarthritis with prominent bony remodeling throughout the tibiotalar and midfoot joints, similar when compared to the prior radiographs from 2016. Foot X-Ray 10/11/22 12:56 IMPRESSION: RIGHT FOOT: Soft tissue ulceration at the distal aspect of the right great toe. Erosion/lucency through the distal tuft of the 1st distal phalanx, likely indicating osteomyelitis. LEFT FOOT: 1. Soft tissue ulceration along the distal/medial aspect of the great toe with circumferential soft tissue swelling. No radiopaque foreign body. No adjacent cortical erosion or periosteal reaction to suggest acute osteomyelitis, however, this may be occult on plain radiographs. 2. Severe osteoarthritis with prominent bony remodeling throughout the tibiotalar and midfoot joints, similar when compared to the prior radiographs from 2016. Duplex Scan Lower Extremity Artery 10/13/22 19:25 IMPRESSION: 1. No hemodynamically significant stenosis in the right lower extremity. 2. Incidental note is made of cardiac arrhythmia. Chest X-Ray 10/15/22 13:39 IMPRESSION: Right upper extremity PICC line tip projects over SVC. Medications Medications Current Medications Acetaminophen (Acetaminophen 325 Mg Tablet) 650 mg PO Q6H PRN PRN Reason: Headache/Pain Mild Scale (1-3) Last Admin: 10/09/22 23:10 Dose: 650 mg Al Hydroxide/Mg Hydroxide (Magnesium Hydrox/Alum Hydrox 30 Ml Oral.Susp) 30 ml PO Q6H PRN PRN Reason: Heartburn/Nausea Albuterol Sulfate (Albuterol Sulfate 90 Mcg 8 Gm Inhaler) 2 puff INHALE Q4H PRN PRN Reason: Shortness Of Breath Last Admin: 10/13/22 20:21 Dose: 2 puff Apixaban (Apixaban 5 Mg Tablet) 5 mg PO BID [facility] Last Admin: 10/15/22 09:10 Dose: 5 mg Aripiprazole (Aripiprazole 5 Mg Tablet) 7.5 mg PO DAILY [facility] Last Admin: 10/15/22 09:14 Dose: 7.5 mg Atorvastatin Calcium (Atorvastatin Calcium 80 Mg Tablet) 80 mg PO DAILY [facility] Last Admin: 10/15/22 09:13 Dose: 80 mg Diltiazem HCl (Diltiazem Hcl Cd 120 Mg Cap.Er.Deg) 120 mg PO DAILY@11 [facility]; Protocol Last Admin: 10/15/22 14:28 Dose: 120 mg Duloxetine HCl (Duloxetine Hcl 60 Mg Capsule.Dr) 60 mg PO BID [facility] Last Admin: 10/15/22 09:10 Dose: 60 mg Ferrous Sulfate (Ferrous Sulfate 324 Mg Tablet.) 324 mg PO MoWeFr@0900 [facility] Last Admin: 10/15/22 09:13 Dose: 324 mg Fluticasone Propionate (Fluticasone Propionate Nasal 16 Gm [place]) 1 spray NOSTRIL-B BID [facility] Last Admin: 10/15/22 09:21 Dose: 1 spray Gabapentin (Gabapentin 400 Mg Capsule) 400 mg PO 5XD [facility] Last Admin: 10/15/22 14:28 Dose: 400 mg Glucose (Glucose Gel 15 Gm Gel..Gram.) 15 gm PO Q15M PRN; Protocol PRN Reason: per Hypoglycemia Standing Ord. Hydroxyzine HCl (Hydroxyzine Hcl 25 Mg Tablet) 25 mg PO Q6H PRN PRN Reason: Anxiety Last Admin: 10/14/22 18:05 Dose: 25 mg Hydroxyzine HCl (Hydroxyzine Hcl 25 Mg Tablet) 25 mg PO TID PRN PRN Reason: Anxiety Last Admin: 10/13/22 08:40 Dose: 25 mg Dextrose (D10) 250 mls @ 750 mls/hr IV Q15M PRN; Protocol PRN Reason: per Hypoglycemia Standing Ord. Aztreonam 2 gm/ Sodium (Chloride) 100 mls @ 200 mls/hr IV Q8H [facility] Last Admin: 10/15/22 09:43 Dose: Not Given Vancomycin HCl 1,000 mg/ (Sodium Chloride) 270 mls @ 270 mls/hr IV Q12H [facility] Last Admin: 10/15/22 14:27 Dose: 270 mls/hr Insulin Human Lispro (Insulin Lispro 100 Unit/Ml 3 Ml Vial) 0 unit SUBCUT QIDACHS [facility]; Protocol Last Admin: 10/15/22 14:40 Dose: Not Given Lidocaine (Lidocaine 4 % Patch Adh..Patch) 1 patch TRANSDERMA DAILY [facility] Last Admin: 10/15/22 10:16 Dose: Not Given Magnesium Hydroxide (Milk Of Magnesia 30 Ml Oral.Susp) 30 ml PO DAILY PRN PRN Reason: Constipation Last Admin: 10/08/22 15:52 Dose: 30 ml Melatonin (Melatonin 3 Mg Tablet) 3 mg PO BEDTIME PRN PRN Reason: Insomnia Last Admin: 10/09/22 23:11 Dose: 3 mg Metformin HCl (Metformin Hcl 1,000 Mg Tablet) 1,000 mg PO DAILY [facility] Last Admin: 10/15/22 09:14 Dose: 1,000 mg Metoprolol Succinate (Metoprolol Succinate Er 25 Mg Tab.Er.24h) 75 mg PO BID [facility]; Protocol Last Admin: 10/15/22 09:11 Dose: 75 mg Nitroglycerin (Nitroglycerin 0.4 Mg Tab.Subl) 0.4 mg SUBLINGUAL Q5M PRN PRN Reason: Chest Pain Nystatin (Nystatin Powder 15 Gm Bottle) 1 appl TOPICAL BID [facility]; Protocol Last Admin: 10/15/22 10:17 Dose: Not Given Omeprazole (Omeprazole 20 Mg Capsule.Dr) 20 mg PO DAILY@0630 [facility] Last Admin: 10/15/22 05:52 Dose: 20 mg Ondansetron HCl (Ondansetron Odt 4 Mg Tab.Rapdis) 4 mg TRANSLINGU Q8H PRN PRN Reason: Nausea Pharmacy Consult (Consult Rx Vancomycin Dosing) 1 each MISCELLANE DAILY PRN PRN Reason: Consult order Phenytoin Sodium (Phenytoin Sodium Extended 100 Mg Capsule) 200 mg PO DAILY [facility] Last Admin: 10/15/22 09:11 Dose: 200 mg Phenytoin Sodium (Phenytoin Sodium Extended 100 Mg Capsule) 400 mg PO BEDTIME [facility] Last Admin: 10/14/22 21:22 Dose: 400 mg Quetiapine Fumarate (Quetiapine Fumarate 100 Mg Tablet) 100 mg PO BEDTIME PRN PRN Reason: Insomnia Last Admin: 10/10/22 22:28 Dose: 100 mg Quetiapine Fumarate (Quetiapine Fumarate 200 Mg Tablet) 200 mg PO BID [facility] Last Admin: 10/15/22 09:12 Dose: 200 mg Senna (Sennosides 8.6 Mg Tablet) 8.6 mg PO DAILY [facility] Last Admin: 10/15/22 09:11 Dose: 8.6 mg Simethicone (Simethicone 80 Mg Tab.Chew) 80 mg PO TID PRN PRN Reason: Indigestion Sodium Chloride (0.9 % Sodium Chloride Flush 10 Ml Syringe) 5 ml IVFLUSH TID YOHAN Torsemide (Torsemide 20 Mg Tablet) 40 mg PO DAILY [facility]; Protocol Last Admin: 10/15/22 10:19 Dose: 40 mg Trazodone HCl (Trazodone Hcl 50 Mg Tablet) 50 mg PO BEDTIME MRX1 PRN PRN Reason: Insomnia Trazodone HCl (Trazodone Hcl 50 Mg Tablet) 50 mg PO BEDTIME YOHAN Last Admin: 10/14/22 21:26 Dose: 50 mg Allergies Allergies Allergy/AdvReac Type Severity Reaction Status Date / Time aspirin Allergy Severe OCCASIONAL Verified 04/08/22 14:18 RASH / TONGUE SWELLING, Hives, throat swellig bee pollen [BEE STINGS] Allergy Severe ANAPHYLAXIS Verified 04/08/22 14:18 Penicillins Allergy Severe ANAPHYLAXIS Verified 04/08/22 14:18 povidone-iodine [Betadine] Allergy Severe Redness of Verified 04/08/22 14:18 Skin soap [Betadine] Allergy Severe Redness of Verified 04/08/22 14:18 Skin spider venom [SPIDER BITES] Allergy Severe Hives Verified 04/08/22 14:18 amoxicillin Allergy Intermediate Hives Verified 04/08/22 14:18 clindamycin Allergy Mild RASH Verified 04/08/22 14:18 latex [Latex] Allergy Mild RASH Verified 04/08/22 14:18 shrimp Allergy Hives Verified 06/21/22 11:48 bupropion [From WELLBUTRIN] AdvReac Severe SEIZURES Verified 04/08/22 14:18 adhesive tape AdvReac Mild Rash Verified 04/14/22 15:55 Assessment & Plan Assessment & Plan (1) Atrial fibrillation with rapid ventricular response: Status: Acute Code(s): I48.91 - Unspecified atrial fibrillation Plan On checking pulse rate using his radial pulse, his rate is about 110/Min. On the recorded vital signs, some of the pulse rates are well within normal range but some of them are quite high up to 145/Min. With regard to the home regimen, listed to be on diltiazem ER 120 mg daily, metoprolol ER 70 mg daily and digoxin alternate days. Current meds however are diltiazem CD 1 20 mg daily with metoprolol at b.i.d. dosing. However, do not see digoxin. Echocardiogram from last year with LVEF of 55-60%. Normal right ventricular size and function. Mildly elevated right atrial pressure. IVC dilated. Other labs reviewed. Hemoglobin 9.7. White cell 6.2. Platelets 280. Potassium 3.5. Creatinine is 0.92. BUN is 18. High sensitivity troponins are well within normal range. Overall, atrial fibrillation with rapid rate could be from holding off on d igoxin. Recommend starting it again. There is also discrepancy between what the patient is a send was reconciled. He states he is taking every day. Hence resume digoxin daily after loading dose and monitor EKGs periodically. Will follow as needed. Discussed with psychiatry as well as hospitalist service. Plan 1. Continue with Cymbalta 60 mg p.o. b.i.d. to target depression. At this moment the patient is not suicidal. 2. Continue with medical workout and treatment of osteomyelitis with IV and vancomycin. We will follow the recommendations of Medicine. 3. Waiting for placement Reason for continued inpatient stay Substantial Risk for: inability to function, rapid decompensation and med/psych decompensation Time Spent With Patient Time: Total time managing care of this patient today _20___ minutes.
--- NOTE | 2022-10-15 15:06 | PM.EVENT ---
Event Note Date of Service: 10/15/22 Event Note: F/U for pt with osteomyelitis of right great toe. Staff had difficulty placing peripheral IV access in patient who missed dose of vanco on 10/14/2022. Patient had PICC line placed on 10/23/2022, verified by x-ray. Flushing orders for PICC line placed. Patient will receive 6 weeks of IV ABX with vanco. Duplex scan of right lower extremity artery showed no hemodynamically significant stenosis in the right lower extremity; vascular pathology contributing to osteomyelitis unlikely. Thank you for allowing us to participate in the care of this patient. Will continue to follow. Please let us know if there are any acute complaints or questions. Time Spent With Patient Time: Total time managing care of this patient today ____ minutes.
[2022-10-15 16:34] LABS: Glucose, Whole Blood 128 mg/dL (60-115)
[2022-10-15 18:00] VITALS: BP 128/57; PULSE 106; RESP 16; TEMP 37.1; O2SAT 99
[2022-10-15] MEDS: 0.9 % Sodium Chloride Flush 10 ML SYRINGE 5 ML IVFLUSH ×2 (18:03→22:11)
[2022-10-15] MEDS: Phenytoin Sodium Extended 100 MG CAPSULE 400 MG PO (21:18)
[2022-10-15] MEDS: traZODone HCL 50 MG TABLET PO (21:19)
[2022-10-15 21:56] LABS: Glucose, Whole Blood 158 mg/dL (60-115)
[2022-10-15] MEDS: LORazepam 1 MG TABLET 2 MG PO (23:20)
[2022-10-15] MEDS: hydrOXYzine HCL 25 MG TABLET PO (23:21)
[2022-10-16 00:30] VITALS: RESP 18
[2022-10-16] MEDS: vancomycin HCL 1,000 MG in 0.9 % Sodium Chloride 250 ML 270 MG IV ×2 (00:59→14:12)
[2022-10-16 06:00] VITALS: BP 108/58; PULSE 86
[2022-10-16] MEDS: Omeprazole 20 MG CAPSULE.DR PO (06:36)
[2022-10-16] MEDS: Gabapentin 400 MG CAPSULE PO ×4 (06:58→21:26)
[2022-10-16 07:25] LABS: Creatinine Clr Calc Pharmacy 146.8; Estimated Glomerular Filt Rate > 60
[2022-10-16 08:37] LABS: Glucose, Whole Blood 159 mg/dL (60-115)
[2022-10-16] MEDS: Insulin Lispro 100 UNIT/ML 3 ML VIAL SUBCUT ×2 (08:40→11:58)
[2022-10-16] MEDS: Atorvastatin Calcium 80 MG TABLET PO (08:41)
[2022-10-16] MEDS: ARIPiprazole 5 MG TABLET 7.5 MG PO (08:41)
[2022-10-16] MEDS: Torsemide 20 MG TABLET 40 MG PO (08:42)
[2022-10-16] MEDS: Metoprolol Succinate ER 25 MG TAB.ER.24H 75 MG PO ×2 (08:42→21:24)
[2022-10-16] MEDS: DULoxetine HCl 60 MG CAPSULE.DR PO ×2 (08:42→21:24)
[2022-10-16] MEDS: Phenytoin Sodium Extended 100 MG CAPSULE 200 MG PO (08:42)
[2022-10-16] MEDS: Apixaban 5 MG TABLET PO ×2 (08:42→21:23)
[2022-10-16] MEDS: LORazepam 1 MG TABLET 2 MG PO ×3 (08:42→21:23)
[2022-10-16] MEDS: QUEtiapine Fumarate 200 MG TABLET PO ×2 (08:43→21:25)
[2022-10-16] MEDS: Sennosides 8.6 MG TABLET PO (08:43)
[2022-10-16] MEDS: metFORMIN HCl 1,000 MG TABLET 1000 MG PO (08:43)
[2022-10-16] MEDS: 0.9 % Sodium Chloride Flush 10 ML SYRINGE 5 ML IVFLUSH ×3 (10:23→21:26)
[2022-10-16 11:10] LABS: Glucose, Whole Blood 186 mg/dL (60-115)
[2022-10-16 11:25] VITALS: BP 104/70; PULSE 108
[2022-10-16 11:29] LABS: Vancomycin Trough 12.6 mcg/mL (10.0-20.0)
[2022-10-16] MEDS: dilTIAZem HCL CD 120 MG CAP.ER.DEG PO (11:54)
--- NOTE | 2022-10-16 12:26 | HO.PSYCHPN ---
Subjective Subjective Date of Service: 10/16/22 Reason For Visit: Major depressive disorder Healthcare Proxy: No Guardianship: No Medical Problems Affecting Mental Status: Yes (limited mobility due to obesity, multiple medical problems , poor self care) Interim History: Patient minimally dressed, lying side ways eating lunch- no concern for his alck of attire, engaged in conversation - wanting to be in a group but isolated to room denies any current si - seems to have very limited self care, though he could sit himself back up when asked to by provider, seems to list toward right side by end he was side ways to his right again Medication Compliance: Yes Side effects from medications: No Attending Groups: No Review of Systems Acute medical concerns: Yes Mental Status Exam Mental Status Exam Narrative: dressed in diaper which was falling off , sheet , Patient Appearance: Disheveled, Unkempt and Malodorous Patient Orientation: Person, Place, Time and Situation Level of Consciousness: Awake Patient Behavior: Dependent, Cooperative and Passive Mood Description: Calm Affect Description: Calm Patient Cognition Impaired: No Ability to Follow Directions: Fair Speech Pattern: Clear Hallucinations: None Delusions: Not Present Thought Process: Intact and Goal Oriented Thought Content: positive for Intact Abnormal Motor Activity Signs and Symptoms: Psychomotor Retardation Judgement: Fair Diagnostics Vital Signs (24Hr): Vital Signs - 24 hr 10/15/22 14:51 10/15/22 18:00 10/16/22 00:30 Temperature 98.7 F Pulse Rate 81 106 H Respiratory Rate 16 18 Blood Pressure 104/58 L 128/57 L Pulse Oximetry 99 Oxygen Delivery Method Room Air 10/16/22 06:00 10/16/22 11:25 Temperature Pulse Rate 86 108 H Respiratory Rate Blood Pressure 108/58 L 104/70 Pulse Oximetry Oxygen Delivery Method BMI result Body Mass Index 37.9 Labs 10/07/22 10:53 10/16/22 07:07 Labs: Laboratory Results - last 48 hr 10/14/22 10/14/22 10/15/22 16:30 20:12 07:53 Creatinine Estim Creat Clear Calc Estimated GFR POC Glucose 109 130 H Vancomycin Trough Random Vancomycin 9.5 L 10/15/22 10/15/22 10/15/22 07:53 08:28 14:30 Creatinine 0.78 Estim Creat Clear Calc 143.0 Estimated GFR > 60 POC Glucose 195 H 123 H Vancomycin Trough Random Vancomycin 10/15/22 10/15/22 10/16/22 16:30 21:52 07:07 Creatinine 0.76 Estim Creat Clear Calc 146.8 Estimated GFR > 60 POC Glucose 128 H 158 H Vancomycin Trough Random Vancomycin 10/16/22 10/16/22 10/16/22 08:32 11:05 11:10 Creatinine Estim Creat Clear Calc Estimated GFR POC Glucose 159 H 186 H Vancomycin Trough 12.6 Random Vancomycin Imaging Radiology Impressions: ITS Impressions Hand/Wrist X-Ray 10/07/22 22:07 IMPRESSION: Old healed fracture of the distal shaft of the fifth metacarpal bone and question old or healing fracture of the neck of the fourth metacarpal bone. No acute fracture. Foot X-Ray 10/11/22 12:56 IMPRESSION: RIGHT FOOT: Soft tissue ulceration at the distal aspect of the right great toe. Erosion/lucency through the distal tuft of the 1st distal phalanx, likely indicating osteomyelitis. LEFT FOOT: 1. Soft tissue ulceration along the distal/medial aspect of the great toe with circumferential soft tissue swelling. No radiopaque foreign body. No adjacent cortical erosion or periosteal reaction to suggest acute osteomyelitis, however, this may be occult on plain radiographs. 2. Severe osteoarthritis with prominent bony remodeling throughout the tibiotalar and midfoot joints, similar when compared to the prior radiographs from 2016. Foot X-Ray 10/11/22 12:56 IMPRESSION: RIGHT FOOT: Soft tissue ulceration at the distal aspect of the right great toe. Erosion/lucency through the distal tuft of the 1st distal phalanx, likely indicating osteomyelitis. LEFT FOOT: 1. Soft tissue ulceration along the distal/medial aspect of the great toe with circumferential soft tissue swelling. No radiopaque foreign body. No adjacent cortical erosion or periosteal reaction to suggest acute osteomyelitis, however, this may be occult on plain radiographs. 2. Severe osteoarthritis with prominent bony remodeling throughout the tibiotalar and midfoot joints, similar when compared to the prior radiographs from 2016. Duplex Scan Lower Extremity Artery 10/13/22 19:25 IMPRESSION: 1. No hemodynamically significant stenosis in the right lower extremity. 2. Incidental note is made of cardiac arrhythmia. Chest X-Ray 10/15/22 13:39 IMPRESSION: Right upper extremity PICC line tip projects over SVC. Medications Medications Current Medications Acetaminophen (Acetaminophen 325 Mg Tablet) 650 mg PO Q6H PRN PRN Reason: Headache/Pain Mild Scale (1-3) Last Admin: 10/09/22 23:10 Dose: 650 mg Al Hydroxide/Mg Hydroxide (Magnesium Hydrox/Alum Hydrox 30 Ml Oral.Susp) 30 ml PO Q6H PRN PRN Reason: Heartburn/Nausea Albuterol Sulfate (Albuterol Sulfate 90 Mcg 8 Gm Inhaler) 2 puff INHALE Q4H PRN PRN Reason: Shortness Of Breath Last Admin: 10/13/22 20:21 Dose: 2 puff Apixaban (Apixaban 5 Mg Tablet) 5 mg PO BID [facility] Last Admin: 10/16/22 08:42 Dose: 5 mg Aripiprazole (Aripiprazole 5 Mg Tablet) 7.5 mg PO DAILY [facility] Last Admin: 10/16/22 08:41 Dose: 7.5 mg Atorvastatin Calcium (Atorvastatin Calcium 80 Mg Tablet) 80 mg PO DAILY [facility] Last Admin: 10/16/22 08:41 Dose: 80 mg Diltiazem HCl (Diltiazem Hcl Cd 120 Mg Cap.Er.Deg) 120 mg PO DAILY@11 [facility]; Protocol Last Admin: 10/16/22 11:54 Dose: 120 mg Duloxetine HCl (Duloxetine Hcl 60 Mg Capsule.Dr) 60 mg PO BID [facility] Last Admin: 10/16/22 08:42 Dose: 60 mg Ferrous Sulfate (Ferrous Sulfate 324 Mg Tablet.Dr) 324 mg PO MoWeFr@0900 [facility] Last Admin: 10/15/22 09:13 Dose: 324 mg Fluticasone Propionate (Fluticasone Propionate Nasal 16 Gm [place]) 1 spray NOSTRIL-B BID [facility] Last Admin: 10/16/22 10:11 Dose: Not Given Gabapentin (Gabapentin 400 Mg Capsule) 400 mg PO 5XD [facility] Last Admin: 10/16/22 08:42 Dose: 400 mg Glucose (Glucose Gel 15 Gm Gel..Gram.) 15 gm PO Q15M PRN; Protocol PRN Reason: per Hypoglycemia Standing Ord. Hydroxyzine HCl (Hydroxyzine Hcl 25 Mg Tablet) 25 mg PO Q6H PRN PRN Reason: Anxiety Last Admin: 10/15/22 23:21 Dose: 25 mg Hydroxyzine HCl (Hydroxyzine Hcl 25 Mg Tablet) 25 mg PO TID PRN PRN Reason: Anxiety Last Admin: 10/13/22 08:40 Dose: 25 mg Dextrose (D10) 250 mls @ 750 mls/hr IV Q15M PRN; Protocol PRN Reason: per Hypoglycemia Standing Ord. Vancomycin HCl 1,000 mg/ (Sodium Chloride) 270 mls @ 270 mls/hr IV Q12H [facility] Last Infusion: 10/16/22 04:10 Dose: Infused Aztreonam 2 gm/ Sodium (Chloride) 100 mls @ 200 mls/hr IV Q8H [facility] Last Admin: 10/16/22 10:24 Dose: 200 mls/hr Insulin Human Lispro (Insulin Lispro 100 Unit/Ml 3 Ml Vial) 0 unit SUBCUT QIDACHS [facility]; Protocol Last Admin: 10/16/22 11:58 Dose: 2 unit Lidocaine (Lidocaine 4 % Patch Adh..Patch) 1 patch TRANSDERMA DAILY [facility] Last Admin: 10/16/22 10:11 Dose: Not Given Lorazepam (Lorazepam 1 Mg Tablet) 2 mg PO TID PRN PRN Reason: Anxiety Last Admin: 10/16/22 08:42 Dose: 2 mg Magnesium Hydroxide (Milk Of Magnesia 30 Ml Oral.Susp) 30 ml PO DAILY PRN PRN Reason: Constipation Last Admin: 10/08/22 15:52 Dose: 30 ml Melatonin (Melatonin 3 Mg Tablet) 3 mg PO BEDTIME PRN PRN Reason: Insomnia Last Admin: 10/09/22 23:11 Dose: 3 mg Metformin HCl (Metformin Hcl 1,000 Mg Tablet) 1,000 mg PO DAILY [facility] Last Admin: 10/16/22 08:43 Dose: 1,000 mg Metoprolol Succinate (Metoprolol Succinate Er 25 Mg Tab.Er.24h) 75 mg PO BID [facility]; Protocol Last Admin: 10/16/22 08:42 Dose: 75 mg Nitroglycerin (Nitroglycerin 0.4 Mg Tab.Subl) 0.4 mg SUBLINGUAL Q5M PRN PRN Reason: Chest Pain Nystatin (Nystatin Powder 15 Gm Bottle) 1 appl TOPICAL BID [facility]; Protocol Last Admin: 10/16/22 08:43 Dose: Not Given Omeprazole (Omeprazole 20 Mg Capsule.Dr) 20 mg PO DAILY@0630 [facility] Last Admin: 10/16/22 06:36 Dose: 20 mg Ondansetron HCl (Ondansetron Odt 4 Mg Tab.Rapdis) 4 mg TRANSLINGU Q8H PRN PRN Reason: Nausea Pharmacy Consult (Consult Rx Vancomycin Dosing) 1 each MISCELLANE DAILY PRN PRN Reason: Consult order Phenytoin Sodium (Phenytoin Sodium Extended 100 Mg Capsule) 200 mg PO DAILY [facility] Last Admin: 10/16/22 08:42 Dose: 200 mg Phenytoin Sodium (Phenytoin Sodium Extended 100 Mg Capsule) 400 mg PO BEDTIME [facility] Last Admin: 10/15/22 21:18 Dose: 400 mg Quetiapine Fumarate (Quetiapine Fumarate 100 Mg Tablet) 100 mg PO BEDTIME PRN PRN Reason: Insomnia Last Admin: 10/10/22 22:28 Dose: 100 mg Quetiapine Fumarate (Quetiapine Fumarate 200 Mg Tablet) 200 mg PO BID [facility] Last Admin: 10/16/22 08:43 Dose: 200 mg Senna (Sennosides 8.6 Mg Tablet) 8.6 mg PO DAILY [facility] Last Admin: 10/16/22 08:43 Dose: 8.6 mg Simethicone (Simethicone 80 Mg Tab.Chew) 80 mg PO TID PRN PRN Reason: Indigestion Sodium Chloride (0.9 % Sodium Chloride Flush 10 Ml Syringe) 5 ml IVFLUSH TID [facility] Last Admin: 10/16/22 10:23 Dose: 5 ml Torsemide (Torsemide 20 Mg Tablet) 40 mg PO DAILY [facility]; Protocol Last Admin: 10/16/22 08:42 Dose: 40 mg Trazodone HCl (Trazodone Hcl 50 Mg Tablet) 50 mg PO BEDTIME MRX1 PRN PRN Reason: Insomnia Trazodone HCl (Trazodone Hcl 50 Mg Tablet) 50 mg PO BEDTIME [facility] Last Admin: 10/15/22 21:19 Dose: 50 mg Allergies Allergies Allergy/AdvReac Type Severity Reaction Status Date / Time aspirin Allergy Severe OCCASIONAL Verified 04/08/22 14:18 RASH / TONGUE SWELLING, Hives, throat swellig bee pollen [BEE STINGS] Allergy Severe ANAPHYLAXIS Verified 04/08/22 14:18 Penicillins Allergy Severe ANAPHYLAXIS Verified 04/08/22 14:18 povidone-iodine [Betadine] Allergy Severe Redness of Verified 04/08/22 14:18 Skin soap [Betadine] Allergy Severe Redness of Verified 04/08/22 14:18 Skin spider venom [SPIDER BITES] Allergy Severe Hives Verified 04/08/22 14:18 amoxicillin Allergy Intermediate Hives Verified 04/08/22 14:18 clindamycin Allergy Mild RASH Verified 04/08/22 14:18 latex [Latex] Allergy Mild RASH Verified 04/08/22 14:18 shrimp Allergy Hives Verified 06/21/22 11:48 bupropion [From WELLBUTRIN] AdvReac Severe SEIZURES Verified 04/08/22 14:18 adhesive tape AdvReac Mild Rash Verified 04/14/22 15:55 Assessment & Plan Assessment & Plan (1) Atrial fibrillation with rapid ventricular response: Status: Acute Code(s): I48.91 - Unspecified atrial fibrillation Plan On checking pulse rate using his radial pulse, his rate is about 110/Min. On the recorded vital signs, some of the pulse rates are well within normal range but some of them are quite high up to 145/Min. With regard to the home regimen, listed to be on diltiazem ER 120 mg daily, metoprolol ER 70 mg daily and digoxin alternate days. Current meds however are diltiazem CD 1 20 mg daily with metoprolol at b.i.d. dosing. However, do not see digoxin. Echocardiogram from last year with LVEF of 55-60%. Normal right ventricular size and function. Mildly elevated right atrial pressure. IVC dilated. Other labs reviewed. Hemoglobin 9.7. White cell 6.2. Platelets 280. Potassium 3.5. Creatinine is 0.92. BUN is 18. High sensitivity troponins are well within normal range. Overall, atrial fibrillation with rapid rate could be from holding off on digoxin. Recommend starting it again. There is also discrepancy between what the patient is a send was reconciled. He states he is taking every day. Hence resume digoxin daily after loading dose and monitor EKGs periodically. Will follow as needed. Discussed with psychiatry as well as hospitalist service. Plan 1. Continue with Cymbalta 60 mg p.o. b.i.d. to target depression. At this moment the patient is not suicidal. 2. Continue with medical workout and treatment of osteomyelitis with IV and vancomycin. We will follow the recommendations of Medicine. 3. Waiting for placement Patient educated on: therapeutic strategies Informed Consent: further education needed Reason for continued inpatient stay Substantial Risk for: harm to self, inability to function and med/psych decompensation Time Spent With Patient Time: Total time managing care of this patient today ____ minutes.
[2022-10-16 16:08] LABS: Glucose, Whole Blood 152 mg/dL (60-115)
[2022-10-16 18:00] VITALS: BP 117/62; PULSE 101; RESP 16
[2022-10-16] MEDS: Phenytoin Sodium Extended 100 MG CAPSULE 400 MG PO (21:24)
[2022-10-16] MEDS: hydrOXYzine HCL 25 MG TABLET PO (21:25)
[2022-10-16] MEDS: traZODone HCL 50 MG TABLET PO (21:25)
[2022-10-17] MEDS: vancomycin HCL 1,000 MG in 0.9 % Sodium Chloride 250 ML 270 MG IV ×2 (00:48→13:11)
[2022-10-17] MEDS: Omeprazole 20 MG CAPSULE.DR PO (06:24)
[2022-10-17] MEDS: Gabapentin 400 MG CAPSULE PO ×5 (06:24→20:25)
[2022-10-17 07:02] LABS: Estimated Glomerular Filt Rate > 60
[2022-10-17 08:05] LABS: Glucose, Whole Blood 160 mg/dL (60-115)
[2022-10-17 09:45] VITALS: BP 108/54; PULSE 99; RESP 18; TEMP 36.7; O2SAT 92
[2022-10-17] MEDS: 0.9 % Sodium Chloride Flush 10 ML SYRINGE 5 ML IVFLUSH ×3 (09:46→21:05)
[2022-10-17] MEDS: Apixaban 5 MG TABLET PO ×2 (09:48→20:24)
[2022-10-17] MEDS: ARIPiprazole 5 MG TABLET 7.5 MG PO (09:49)
[2022-10-17] MEDS: Phenytoin Sodium Extended 100 MG CAPSULE 200 MG PO (09:51)
[2022-10-17] MEDS: Atorvastatin Calcium 80 MG TABLET PO (09:51)
[2022-10-17] MEDS: metFORMIN HCl 1,000 MG TABLET 1000 MG PO (09:52)
[2022-10-17] MEDS: Torsemide 20 MG TABLET 40 MG PO (09:52)
[2022-10-17] MEDS: hydrOXYzine HCL 25 MG TABLET PO ×2 (09:52→20:28)
[2022-10-17] MEDS: Sennosides 8.6 MG TABLET PO (09:52)
[2022-10-17] MEDS: LORazepam 1 MG TABLET 2 MG PO ×2 (09:52→20:29)
[2022-10-17] MEDS: DULoxetine HCl 60 MG CAPSULE.DR PO ×2 (09:53→20:25)
[2022-10-17] MEDS: Insulin Lispro 100 UNIT/ML 3 ML VIAL SUBCUT ×3 (09:53→21:12)
[2022-10-17] MEDS: Metoprolol Succinate ER 25 MG TAB.ER.24H 75 MG PO ×2 (09:53→20:25)
[2022-10-17] MEDS: QUEtiapine Fumarate 200 MG TABLET PO ×2 (09:53→20:25)
[2022-10-17] MEDS: Fluticasone Propionate Nasal 16 GM SPRAY 1 SPRAY NOSTRIL-B ×2 (09:54→20:59)
[2022-10-17 11:17] LABS: Vancomycin Trough 16.9 mcg/mL (10.0-20.0)
--- NOTE | 2022-10-17 11:22 | HE.PHANOTE ---
Vancomycin Dosing Level 16.9 today. Slight rise in SCr, that will continue to monitor closely. Continue current regimen. Next level 10/18 @ 1100. Randy BrarD
[2022-10-17 11:25] VITALS: BP 111/57; PULSE 91
[2022-10-17 11:25] LABS: Glucose, Whole Blood 212 mg/dL (60-115)
[2022-10-17] MEDS: dilTIAZem HCL CD 120 MG CAP.ER.DEG PO (11:28)
--- NOTE | 2022-10-17 15:47 | HO.PSYCHPN ---
Subjective Subjective Date of Service: 10/17/22 Reason For Visit: Major depressive disorder Subjective Notes: Conditional Voluntary Healthcare Proxy: No Guardianship: No Medical Problems Affecting Mental Status: Yes (osteomyelitis keeping him less mobile) Interim History: Pt considered getting up with hoaracely and getting out of room- not sure he followed through on this- wondered about parkinsons for himself since I noticed tremor in hand yesterday but told him since on meds/atypicals can cause that- He is interested in deprescribing some meds and so I dced am seroquel now that he is also on abilify- Medication Compliance: Yes Side effects from medications: Yes (? contributing to obesity , and tremor) Attending Groups: No Review of Systems Acute medical concerns: Yes getting iv vanco for osteo Mental Status Exam Mental Status Exam Narrative: Patient dressed today and more appropriate- still listing to right when eating or in bed Patient Appearance: Appropriate Patient Orientation: Person, Place, Time and Situation Level of Consciousness: Awake Patient Behavior: Dependent Mood Description: Calm Affect Description: Calm Patient Cognition Impaired: No Ability to Follow Directions: Fair Speech Pattern: Clear Hallucinations: None Thought Process: Intact Thought Content: positive for Intact Judgement: Fair Diagnostics Vital Signs (24Hr): Vital Signs - 24 hr 10/16/22 18:00 10/17/22 09:45 10/17/22 11:25 Temperature 98.1 F Pulse Rate 101 H 99 91 Respiratory Rate 16 18 Blood Pressure 117/62 108/54 L 111/57 L Pulse Oximetry 92 Oxygen Delivery Method Room Air BMI result Body Mass Index 37.9 Labs 10/07/22 10:53 10/17/22 06:34 Labs: Laboratory Results - last 48 hr 10/15/22 10/15/22 10/16/22 16:30 21:52 07:07 Creatinine 0.76 Estim Creat Clear Calc 146.8 Estimated GFR > 60 POC Glucose 128 H 158 H Vancomycin Trough 10/16/22 10/16/22 10/16/22 08:32 11:05 11:10 Creatinine Estim Creat Clear Calc Estimated GFR POC Glucose 159 H 186 H Vancomycin Trough 12.6 10/16/22 10/17/22 10/17/22 16:04 06:34 08:00 Creatinine 0.82 Estim Creat Clear Calc 136.0 Estimated GFR > 60 POC Glucose 152 H 160 H Vancomycin Trough 10/17/22 10/17/22 10:45 11:21 Creatinine Estim Creat Clear Calc Estimated GFR POC Glucose 212 H Vancomycin Trough 16.9 Imaging Radiology Impressions: ITS Impressions Hand/Wrist X-Ray 10/07/22 22:07 IMPRESSION: Old healed fracture of the distal shaft of the fifth metacarpal bone and question old or healing fracture of the neck of the fourth metacarpal bone. No acute fracture. Foot X-Ray 10/11/22 12:56 IMPRESSION: RIGHT FOOT: Soft tissue ulceration at the distal aspect of the right great toe. Erosion/lucency through the distal tuft of the 1st distal phalanx, likely indicating osteomyelitis. LEFT FOOT: 1. Soft tissue ulceration along the distal/medial aspect of the great toe with circumferential soft tissue swelling. No radiopaque foreign body. No adjacent cortical erosion or periosteal reaction to suggest acute osteomyelitis, however, this may be occult on plain radiographs. 2. Severe osteoarthritis with prominent bony remodeling throughout the tibiotalar and midfoot joints, similar when compared to the prior radiographs from 2016. Foot X-Ray 10/11/22 12:56 IMPRESSION: RIGHT FOOT: Soft tissue ulceration at the distal aspect of the right great toe. Erosion/lucency through the distal tuft of the 1st distal phalanx, likely indicating osteomyelitis. LEFT FOOT: 1. Soft tissue ulceration along the distal/medial aspect of the great toe with circumferential soft tissue swelling. No radiopaque foreign body. No adjacent cortical erosion or periosteal reaction to suggest acute osteomyelitis, however, this may be occult on plain radiographs. 2. Severe osteoarthritis with prominent bony remodeling throughout the tibiotalar and midfoot joints, similar when compared to the prior radiographs from 2016. Duplex Scan Lower Extremity Artery 10/13/22 19:25 IMPRESSION: 1. No hemodynamically significant stenosis in the right lower extremity. 2. Incidental note is made of cardiac arrhythmia. Chest X-Ray 10/15/22 13:39 IMPRESSION: Right upper extremity PICC line tip projects over SVC. Medications Medications Current Medications Acetaminophen (Acetaminophen 325 Mg Tablet) 650 mg PO Q6H PRN PRN Reason: Headache/Pain Mild Scale (1-3) Last Admin: 10/09/22 23:10 Dose: 650 mg Al Hydroxide/Mg Hydroxide (Magnesium Hydrox/Alum Hydrox 30 Ml Oral.Susp) 30 ml PO Q6H PRN PRN Reason: Heartburn/Nausea Albuterol Sulfate (Albuterol Sulfate 90 Mcg 8 Gm Inhaler) 2 puff INHALE Q4H PRN PRN Reason: Shortness Of Breath Last Admin: 10/13/22 20:21 Dose: 2 puff Apixaban (Apixaban 5 Mg Tablet) 5 mg PO BID [facility] Last Admin: 10/17/22 09:48 Dose: 5 mg Aripiprazole (Aripiprazole 5 Mg Tablet) 7.5 mg PO DAILY [facility] Last Admin: 10/17/22 09:49 Dose: 7.5 mg Atorvastatin Calcium (Atorvastatin Calcium 80 Mg Tablet) 80 mg PO DAILY [facility] Last Admin: 10/17/22 09:51 Dose: 80 mg Diltiazem HCl (Diltiazem Hcl Cd 120 Mg Cap.Er.Deg) 120 mg PO DAILY@11 [facility]; Protocol Last Admin: 10/17/22 11:28 Dose: 120 mg Duloxetine HCl (Duloxetine Hcl 60 Mg Capsule.) 60 mg PO BID [facility] Last Admin: 10/17/22 09:53 Dose: 60 mg Ferrous Sulfate (Ferrous Sulfate 324 Mg Tablet.) 324 mg PO MoWeFr@0900 [facility] Last Admin: 10/15/22 09:13 Dose: 324 mg Fluticasone Propionate (Fluticasone Propionate Nasal 16 Gm [place]) 1 spray NOSTRIL-B BID [facility] Last Admin: 10/17/22 09:54 Dose: 1 spray Gabapentin (Gabapentin 400 Mg Capsule) 400 mg PO QID [facility] Glucose (Glucose Gel 15 Gm Gel..Gram.) 15 gm PO Q15M PRN; Protocol PRN Reason: per Hypoglycemia Standing Ord. Hydroxyzine HCl (Hydroxyzine Hcl 25 Mg Tablet) 25 mg PO TID PRN PRN Reason: Anxiety Last Admin: 10/13/22 08:40 Dose: 25 mg Dextrose (D10) 250 mls @ 750 mls/hr IV Q15M PRN; Protocol PRN Reason: per Hypoglycemia Standing Ord. Vancomycin HCl 1,000 mg/ (Sodium Chloride) 270 mls @ 270 mls/hr IV Q12H [facility] Last Admin: 10/17/22 13:11 Dose: 270 mls/hr Aztreonam 2 gm/ Sodium (Chloride) 100 mls @ 200 mls/hr IV Q8H [facility] Last Infusion: 10/17/22 11:53 Dose: Infused Insulin Human Lispro (Insulin Lispro 100 Unit/Ml 3 Ml Vial) 0 unit SUBCUT QIDACHS [facility]; Protocol Last Admin: 10/17/22 12:20 Dose: 4 unit Lidocaine (Lidocaine 4 % Patch Adh..Patch) 1 patch TRANSDERMA DAILY [facility] Last Admin: 10/17/22 09:55 Dose: Not Given Lorazepam (Lorazepam 1 Mg Tablet) 2 mg PO TID PRN PRN Reason: Anxiety Last Admin: 10/17/22 09:52 Dose: 2 mg Magnesium Hydroxide (Milk Of Magnesia 30 Ml Oral.Susp) 30 ml PO DAILY PRN PRN Reason: Constipation Last Admin: 10/08/22 15:52 Dose: 30 ml Melatonin (Melatonin 3 Mg Tablet) 3 mg PO BEDTIME PRN PRN Reason: Insomnia Last Admin: 10/09/22 23:11 Dose: 3 mg Metformin HCl (Metformin Hcl 1,000 Mg Tablet) 1,000 mg PO DAILY [facility] Last Admin: 10/17/22 09:52 Dose: 1,000 mg Metoprolol Succinate (Metoprolol Succinate Er 25 Mg Tab.Er.24h) 75 mg PO BID [facility]; Protocol Last Admin: 10/17/22 09:53 Dose: 75 mg Nitroglycerin (Nitroglycerin 0.4 Mg Tab.Subl) 0.4 mg SUBLINGUAL Q5M PRN PRN Reason: Chest Pain Nystatin (Nystatin Powder 15 Gm Bottle) 1 appl TOPICAL BID [facility]; Protocol Last Admin: 10/17/22 09:53 Dose: Not Given Omeprazole (Omeprazole 20 Mg Capsule.Dr) 20 mg PO DAILY@0630 [facility] Last Admin: 10/17/22 06:24 Dose: 20 mg Ondansetron HCl (Ondansetron Odt 4 Mg Tab.Rapdis) 4 mg TRANSLINGU Q8H PRN PRN Reason: Nausea Pharmacy Consult (Consult Rx Vancomycin Dosing) 1 each MISCELLANE DAILY PRN PRN Reason: Consult order Phenytoin Sodium (Phenytoin Sodium Extended 100 Mg Capsule) 200 mg PO DAILY [facility] Last Admin: 10/17/22 09:51 Dose: 200 mg Phenytoin Sodium (Phenytoin Sodium Extended 100 Mg Capsule) 400 mg PO BEDTIME [facility] Last Admin: 10/16/22 21:24 Dose: 400 mg Quetiapine Fumarate (Quetiapine Fumarate 100 Mg Tablet) 100 mg PO BEDTIME PRN PRN Reason: Insomnia Last Admin: 10/10/22 22:28 Dose: 100 mg Quetiapine Fumarate (Quetiapine Fumarate 200 Mg Tablet) 200 mg PO BEDTIME [facility] Senna (Sennosides 8.6 Mg Tablet) 8.6 mg PO DAILY [facility] Last Admin: 10/17/22 09:52 Dose: 8.6 mg Simethicone (Simethicone 80 Mg Tab.Chew) 80 mg PO TID PRN PRN Reason: Indigestion Sodium Chloride (0.9 % Sodium Chloride Flush 10 Ml Syringe) 5 ml IVFLUSH TID [facility] Last Admin: 10/17/22 09:46 Dose: 5 ml Torsemide (Torsemide 20 Mg Tablet) 40 mg PO DAILY [facility]; Protocol Last Admin: 10/17/22 09:52 Dose: 40 mg Trazodone HCl (Trazodone Hcl 50 Mg Tablet) 50 mg PO BEDTIME MRX1 PRN PRN Reason: Insomnia Trazodone HCl (Trazodone Hcl 50 Mg Tablet) 50 mg PO BEDTIME [facility] Last Admin: 10/16/22 21:25 Dose: 50 mg Allergies Allergies Allergy/AdvReac Type Severity Reaction Status Date / Time aspirin Allergy Severe OCCASIONAL Verified 04/08/22 14:18 RASH / TONGUE SWELLING, Hives, throat swellig bee pollen [BEE STINGS] Allergy Severe ANAPHYLAXIS Verified 04/08/22 14:18 Penicillins Allergy Severe ANAPHYLAXIS Verified 04/08/22 14:18 povidone-iodine [Betadine] Allergy Severe Redness of Verified 04/08/22 14:18 Skin soap [Betadine] Allergy Severe Redness of Verified 04/08/22 14:18 Skin spider venom [SPIDER BITES] Allergy Severe Hives Verified 04/08/22 14:18 amoxicillin Allergy Intermediate Hives Verified 04/08/22 14:18 clindamycin Allergy Mild RASH Verified 04/08/22 14:18 latex [Latex] Allergy Mild RASH Verified 04/08/22 14:18 shrimp Allergy Hives Verified 06/21/22 11:48 bupropion [From WELLBUTRIN] AdvReac Severe SEIZURES Verified 04/08/22 14:18 adhesive tape AdvReac Mild Rash Verified 04/14/22 15:55 Assessment & Plan Assessment & Plan (1) Atrial fibrillation with rapid ventricular response: Status: Acute Code(s): I48.91 - Unspecified atrial fibrillation Plan On checking pulse rate using his radial pulse, his rate is about 110/Min. On the recorded vital signs, some of the pulse rates are well within normal range but some of them are quite high up to 145/Min. With regard to the home regimen, listed to be on diltiazem ER 120 mg daily, metoprolol ER 70 mg daily and digoxin alternate days. Current meds however are diltiazem CD 1 20 mg daily with metoprolol at b.i.d. dosing. However, do not see digoxin. Echocardiogram from last year with LVEF of 55-60%. Normal right ventricular size and function. Mildly elevated right atrial pressure. IVC dilated. Other labs reviewed. Hemoglobin 9.7. White cell 6.2. Platelets 280. Potassium 3.5. Creatinine is 0.92. BUN is 18. High sensitivity troponins are well within normal range. Overall, atrial fibrillation with rapid rate could be from holding off on digoxin. Recommend starting it again. There is also discrepancy between what the patient is a send was reconciled. He states he is taking every day. Hence resume digoxin daily after loading dose and monitor EKGs periodically. Will follow as needed. Discussed with psychiatry as well as hospitalist service. Plan 1. Continue with Cymbalta 60 mg p.o. b.i.d. to target depression. At this moment the patient is not suicidal. 2. Continue with medical workout and treatment of osteomyelitis with IV and vancomycin. We will follow the recommendations of Medicine. 3. Waiting for placement 10/17/21 dced am seroquel , and extra prn of aterax Patient educated on: medication risk/benefits Informed Consent: understands and further education needed Reason for continued inpatient stay Substantial Risk for: med/psych decompensation Time Spent With Patient Time: Total time managing care of this patient today ____ minutes.
[2022-10-17 16:27] LABS: Glucose, Whole Blood 103 mg/dL (60-115)
[2022-10-17 18:00] VITALS: BP 115/58; PULSE 99; RESP 18; TEMP 37.4; O2SAT 95
[2022-10-17] MEDS: traZODone HCL 50 MG TABLET PO (20:24)
[2022-10-17] MEDS: Phenytoin Sodium Extended 100 MG CAPSULE 400 MG PO (20:24)
[2022-10-17 21:01] LABS: Glucose, Whole Blood 164 mg/dL (60-115)
[2022-10-18] MEDS: vancomycin HCL 1,000 MG in 0.9 % Sodium Chloride 250 ML 200 MG IV (00:30)
[2022-10-18] MEDS: hydrOXYzine HCL 25 MG TABLET PO (05:21)
[2022-10-18] MEDS: Omeprazole 20 MG CAPSULE.DR PO (05:21)
[2022-10-18] MEDS: LORazepam 1 MG TABLET 2 MG PO ×2 (05:21→21:33)
[2022-10-18 07:55] LABS: Glucose, Whole Blood 166 mg/dL (60-115)
[2022-10-18 08:25] VITALS: BP 117/51; PULSE 96; RESP 20; TEMP 37.1; O2SAT 93
[2022-10-18] MEDS: DULoxetine HCl 60 MG CAPSULE.DR PO ×2 (08:25→21:21)
[2022-10-18] MEDS: ARIPiprazole 5 MG TABLET 7.5 MG PO (08:25)
[2022-10-18] MEDS: Phenytoin Sodium Extended 100 MG CAPSULE 200 MG PO (08:26)
[2022-10-18] MEDS: Apixaban 5 MG TABLET PO ×2 (08:26→21:21)
[2022-10-18] MEDS: Metoprolol Succinate ER 25 MG TAB.ER.24H 75 MG PO ×2 (08:26→21:19)
[2022-10-18] MEDS: Sennosides 8.6 MG TABLET PO (08:27)
[2022-10-18] MEDS: Gabapentin 400 MG CAPSULE PO ×4 (08:27→21:20)
[2022-10-18] MEDS: Insulin Lispro 100 UNIT/ML 3 ML VIAL SUBCUT ×3 (08:27→16:11)
[2022-10-18] MEDS: Torsemide 20 MG TABLET 40 MG PO (08:27)
[2022-10-18] MEDS: metFORMIN HCl 1,000 MG TABLET 1000 MG PO (08:27)
[2022-10-18] MEDS: Atorvastatin Calcium 80 MG TABLET PO (08:27)
[2022-10-18] MEDS: Nystatin Powder 15 GM BOTTLE 1 APPL TOPICAL (08:31)
[2022-10-18 08:48] LABS: Creatinine Clr Calc Pharmacy 132.8; Estimated Glomerular Filt Rate > 60
[2022-10-18] MEDS: dilTIAZem HCL CD 120 MG CAP.ER.DEG PO (10:59)
--- NOTE | 2022-10-18 10:59 | PM.EVENT ---
Event Note Date of Service: 10/18/22 Event Note: Pt with osteomyelitis R great toe. No significant PAD on arterial doppler. Evaluated by ID. Continue vancomycin x 6 weeks (Missed doses 10/14. Continue 10/15- 11/26) via PICC line. Likely strep or staph. Blood cultures did not grow any other organisms. Will dc azactam. Continue monitoring renal function and vanco troughs per protocol by pharmacy. On discharge, should have renal function and vanco trough monitored weekly and sent to Dr. hayden in [place]. Patient should follow up outpt with Dr. Hayden and with the wound clinic. Conitnue dressing changes as advised by wound care. Thank you for allowing me to participate in this consult. Signing off at this time. Please do not hesitate to call for further questions. Time Spent With Patient Time: Total time managing care of this patient today ____ minutes.
[2022-10-18 11:09] LABS: Glucose, Whole Blood 163 mg/dL (60-115)
[2022-10-18 11:41] LABS: Vancomycin Trough 16.7 mcg/mL (10.0-20.0)
[2022-10-18] MEDS: vancomycin HCL 1,000 MG in 0.9 % Sodium Chloride 250 ML 270 MG IV (13:58)
--- NOTE | 2022-10-18 14:50 | P.PNPSI_ITS ---
Subjective Subjective Date of Service: 10/18/22 Reason For Visit: Major depressive disorder Subjective Notes: Conditional Voluntary Interim History: The nursing staff reported the patient has been cooperative no evidence of agitation but later on he acts out throwing away his hearing. The social sciences professor reported that they are working on placement, [facility] for [facility]. On interview the patient denies active suicidal ideation months he wants his opioids back again. Mental Status Exam Mental Status Exam Patient Appearance: Appropriate Patient Orientation: Person and Situation Level of Consciousness: Awake and Appropriate Patient Behavior: Guarded and Passive Mood Description: Withdrawn and Constricted Affect Description: Constricted Patient Cognition Impaired: Yes Ability to Follow Directions: Good Speech Pattern: Clear Hallucinations: None Delusions: Not Present Thought Process: Distracted Thought Content: positive for [place] and positive for Circumstantial Judgement: Fair Diagnostics Vital Signs (24Hr): Vital Signs - 24 hr 10/17/22 18:00 10/18/22 08:25 Temperature 99.3 F 98.7 F Pulse Rate 99 96 Respiratory Rate 18 20 Blood Pressure 115/58 L 117/51 L Pulse Oximetry 95 93 Oxygen Delivery Method Room Air Room Air BMI result Body Mass Index 37.9 Labs 10/07/22 10:53 10/18/22 08:23 Labs: Laboratory Results - last 48 hr 10/16/22 10/17/22 10/17/22 16:04 06:34 08:00 Creatinine 0.82 Estim Creat Clear Calc 136.0 Estimated GFR > 60 POC Glucose 152 H 160 H Vancomycin Trough 10/17/22 10/17/22 10/17/22 10:45 11:21 16:23 Creatinine Estim Creat Clear Calc Estimated GFR POC Glucose 212 H 103 Vancomycin Trough 16.9 10/17/22 10/18/22 10/18/22 20:55 07:49 08:23 Creatinine 0.84 Estim Creat Clear Calc 132.8 Estimated GFR > 60 POC Glucose 164 H 166 H Vancomycin Trough 10/18/22 10/18/22 10:57 11:20 Creatinine Estim Creat Clear Calc Estimated GFR POC Glucose 163 H Vancomycin Trough 16.7 Imaging Radiology Impressions: ITS Impressions Hand/Wrist X-Ray 10/07/22 22:07 IMPRESSION: Old healed fracture of the distal shaft of the fifth metacarpal bone and question old or healing fracture of the neck of the fourth metacarpal bone. No acute fracture. Foot X-Ray 10/11/22 12:56 IMPRESSION: RIGHT FOOT: Soft tissue ulceration at the distal aspect of the right great toe. Erosion/lucency through the distal tuft of the 1st distal phalanx, likely indicating osteomyelitis. LEFT FOOT: 1. Soft tissue ulceration along the distal/medial aspect of the great toe with circumferential soft tissue swelling. No radiopaque foreign body. No adjacent cortical erosion or periosteal reaction to suggest acute osteomyelitis, however, this may be occult on plain radiographs. 2. Severe osteoarthritis with prominent bony remodeling throughout the tibiotalar and midfoot joints, similar when compared to the prior radiographs from 2016. Foot X-Ray 10/11/22 12:56 IMPRESSION: RIGHT FOOT: Soft tissue ulceration at the distal aspect of the right great toe. Erosion/lucency through the distal tuft of the 1st distal phalanx, likely indicating osteomyelitis. LEFT FOOT: 1. Soft tissue ulceration along the distal/medial aspect of the great toe with circumferential soft tissue swelling. No radiopaque foreign body. No adjacent cortical erosion or periosteal reaction to suggest acute osteomyelitis, however, this may be occult on plain radiographs. 2. Severe osteoarthritis with prominent bony remodeling throughout the tibiotalar and midfoot joints, similar when compared to the prior radiographs from 2016. Duplex Scan Lower Extremity Artery 10/13/22 19:25 IMPRESSION: 1. No hemodynamically significant stenosis in the right lower extremity. 2. Incidental note is made of cardiac arrhythmia. Chest X-Ray 10/15/22 13:39 IMPRESSION: Right upper extremity PICC line tip projects over SVC. Medications Medications Current Medications Acetaminophen (Acetaminophen 325 Mg Tablet) 650 mg PO Q6H PRN PRN Reason: Headache/Pain Mild Scale (1-3) Last Admin: 10/09/22 23:10 Dose: 650 mg Al Hydroxide/Mg Hydroxide (Magnesium Hydrox/Alum Hydrox 30 Ml Oral.Susp) 30 ml PO Q6H PRN PRN Reason: Heartburn/Nausea Albuterol Sulfate (Albuterol Sulfate 90 Mcg 8 Gm Inhaler) 2 puff INHALE Q4H PRN PRN Reason: Shortness Of Breath Last Admin: 10/13/22 20:21 Dose: 2 puff Apixaban (Apixaban 5 Mg Tablet) 5 mg PO BID [facility] Last Admin: 10/18/22 08:26 Dose: 5 mg Aripiprazole (Aripiprazole 5 Mg Tablet) 7.5 mg PO DAILY [facility] Last Admin: 10/18/22 08:25 Dose: 7.5 mg Atorvastatin Calcium (Atorvastatin Calcium 80 Mg Tablet) 80 mg PO DAILY [facility] Last Admin: 10/18/22 08:27 Dose: 80 mg Diltiazem HCl (Diltiazem Hcl Cd 120 Mg Cap.Er.Deg) 120 mg PO DAILY@11 [facility]; Protocol Last Admin: 10/18/22 10:59 Dose: 120 mg Duloxetine HCl (Duloxetine Hcl 60 Mg Capsule.Dr) 60 mg PO BID [facility] Last Admin: 10/18/22 08:25 Dose: 60 mg Ferrous Sulfate (Ferrous Sulfate 324 Mg Tablet.Dr) 324 mg PO MoWeFr@0900 [facility] Last Admin: 10/18/22 08:30 Dose: Not Given Fluticasone Propionate (Fluticasone Propionate Nasal 16 Gm [place]) 1 spray NOSTRIL-B BID [facility] Last Admin: 10/18/22 08:30 Dose: Not Given Gabapentin (Gabapentin 400 Mg Capsule) 400 mg PO QID [facility] Last Admin: 10/18/22 14:05 Dose: 400 mg Glucose (Glucose Gel 15 Gm Gel..Gram.) 15 gm PO Q15M PRN; Protocol PRN Reason: per Hypoglycemia Standing Ord. Hydroxyzine HCl (Hydroxyzine Hcl 25 Mg Tablet) 25 mg PO TID PRN PRN Reason: Anxiety Last Admin: 10/18/22 05:21 Dose: 25 mg Dextrose (D10) 250 mls @ 750 mls/hr IV Q15M PRN; Protocol PRN Reason: per Hypoglycemia Standing Ord. Vancomycin HCl 1,000 mg/ (Sodium Chloride) 270 mls @ 270 mls/hr IV Q12H [facility] Last Admin: 10/18/22 13:58 Dose: 270 mls/hr Insulin Human Lispro (Insulin Lispro 100 Unit/Ml 3 Ml Vial) 0 unit SUBCUT QIDACHS [facility]; Protocol Last Admin: 10/18/22 11:06 Dose: 2 unit Lidocaine (Lidocaine 4 % Patch Adh..Patch) 1 patch TRANSDERMA DAILY [facility] Last Admin: 10/18/22 08:31 Dose: Not Given Lorazepam (Lorazepam 1 Mg Tablet) 2 mg PO TID PRN PRN Reason: Anxiety Last Admin: 10/18/22 05:21 Dose: 2 mg Magnesium Hydroxide (Milk Of Magnesia 30 Ml Oral.Susp) 30 ml PO DAILY PRN PRN Reason: Constipation Last Admin: 10/08/22 15:52 Dose: 30 ml Melatonin (Melatonin 3 Mg Tablet) 3 mg PO BEDTIME PRN PRN Reason: Insomnia Last Admin: 10/09/22 23:11 Dose: 3 mg Metformin HCl (Metformin Hcl 1,000 Mg Tablet) 1,000 mg PO DAILY [facility] Last Admin: 10/18/22 08:27 Dose: 1,000 mg Metoprolol Succinate (Metoprolol Succinate Er 25 Mg Tab.Er.24h) 75 mg PO BID [facility]; Protocol Last Admin: 10/18/22 08:26 Dose: 75 mg Nitroglycerin (Nitroglycerin 0.4 Mg Tab.Subl) 0.4 mg SUBLINGUAL Q5M PRN PRN Reason: Chest Pain Nystatin (Nystatin Powder 15 Gm Bottle) 1 appl TOPICAL BID [facility]; Protocol Last Admin: 10/18/22 08:31 Dose: 1 appl Omeprazole (Omeprazole 20 Mg Capsule.Dr) 20 mg PO DAILY@0630 [facility] Last Admin: 10/18/22 05:21 Dose: 20 mg Ondansetron HCl (Ondansetron Odt 4 Mg Tab.Rapdis) 4 mg TRANSLINGU Q8H PRN PRN Reason: Nausea Pharmacy Consult (Consult Rx Vancomycin Dosing) 1 each MISCELLANE DAILY PRN PRN Reason: Consult order Phenytoin Sodium (Phenytoin Sodium Extended 100 Mg Capsule) 200 mg PO DAILY [facility] Last Admin: 10/18/22 08:26 Dose: 200 mg Phenytoin Sodium (Phenytoin Sodium Extended 100 Mg Capsule) 400 mg PO BEDTIME [facility] Last Admin: 10/17/22 20:24 Dose: 400 mg Quetiapine Fumarate (Quetiapine Fumarate 100 Mg Tablet) 100 mg PO BEDTIME PRN PRN Reason: Insomnia Last Admin: 10/10/22 22:28 Dose: 100 mg Quetiapine Fumarate (Quetiapine Fumarate 200 Mg Tablet) 200 mg PO BEDTIME [facility] Last Admin: 10/17/22 20:25 Dose: 200 mg Senna (Sennosides 8.6 Mg Tablet) 8.6 mg PO DAILY [facility] Last Admin: 10/18/22 08:27 Dose: 8.6 mg Simethicone (Simethicone 80 Mg Tab.Chew) 80 mg PO TID PRN PRN Reason: Indigestion Sodium Chloride (0.9 % Sodium Chloride Flush 10 Ml Syringe) 5 ml IVFLUSH TID [facility] Last Admin: 10/18/22 07:46 Dose: Not Given Torsemide (Torsemide 20 Mg Tablet) 40 mg PO DAILY [facility]; Protocol Last Admin: 10/18/22 08:27 Dose: 40 mg Trazodone HCl (Trazodone Hcl 50 Mg Tablet) 50 mg PO BEDTIME MRX1 PRN PRN Reason: Insomnia Trazodone HCl (Trazodone Hcl 50 Mg Tablet) 50 mg PO BEDTIME [facility] Last Admin: 10/17/22 20:24 Dose: 50 mg Allergies Allergies Allergy/AdvReac Type Severity Reaction Status Date / Time aspirin Allergy Severe OCCASIONAL Verified 04/08/22 14:18 RASH / TONGUE SWELLING, Hives, throat swellig bee pollen [BEE STINGS] Allergy Severe ANAPHYLAXIS Verified 04/08/22 14:18 Penicillins Allergy Severe ANAPHYLAXIS Verified 04/08/22 14:18 povidone-iodine [Betadine] Allergy Severe Redness of Verified 04/08/22 14:18 Skin soap [Betadine] Allergy Severe Redness of Verified 04/08/22 14:18 Skin spider venom [SPIDER BITES] Allergy Severe Hives Verified 04/08/22 14:18 amoxicillin Allergy Intermediate Hives Verified 04/08/22 14:18 clindamycin Allergy Mild RASH Verified 04/08/22 14:18 latex [Latex] Allergy Mild RASH Verified 04/08/22 14:18 shrimp Allergy Hives Verified 06/21/22 11:48 bupropion [From WELLBUTRIN] AdvReac Severe SEIZURES Verified 04/08/22 14:18 adhesive tape AdvReac Mild Rash Verified 04/14/22 15:55 Assessment & Plan Assessment & Plan (1) Atrial fibrillation with rapid ventricular response: Status: Acute Code(s): I48.91 - Unspecified atrial fibrillation Plan On checking pulse rate using his radial pulse, his rate is about 110/Min. On the recorded vital signs, some of the pulse rates are well within normal range but some of them are quite high up to 145/Min. With regard to the home regimen, listed to be on diltiazem ER 120 mg daily, metoprolol ER 70 mg daily and digoxin alternate days. Current meds however are diltiazem CD 1 20 mg daily with metoprolol at b.i.d. dosing. However, do not see digoxin. Echocardiogram from last year with LVEF of 55-60%. Normal right ventricular size and function. Mildly elevated right atrial pressure. IVC dilated. Other labs reviewed. Hemoglobin 9.7. White cell 6.2. Platelets 280. Potassium 3.5. Creatinine is 0.92. BUN is 18. High sensitivity troponins are well within normal range. Overall, atrial fibrillation with rapid rate could be from holding off on digoxin. Recommend starting it again. There is also discrepancy between what the patient is a send was reconciled. He states he is taking every day. Hence resume digoxin daily after loading dose and monitor EKGs periodically. Will follow as needed. Discussed with psychiatry as well as hospitalist service. Plan 1. Continue with Cymbalta 60 mg p.o. b.i.d. to target depression. At this moment the patient is not suicidal. 2. Continue with medical workout and treatment of osteomyelitis with IV and vancomycin. We will follow the recommendations of Medicine. 3. Waiting for placement Reason for continued inpatient stay Substantial Risk for: inability to function, rapid decompensation and med/psych decompensation Time Spent With Patient Time: Total time managing care of this patient today __20__ minutes.
--- NOTE | 2022-10-18 15:14 | MHC.CLN ---
NUTRITION WOUND CONSULT FROM 10/11 REVIEWED. RIGHT JACOBSEN WOUND APPEARS VENOUS STASIS/CELLULITIS; NOT PRESSURE. LEFT AND RIGHT GREAT TOES WITH CHRONIC DIABETIC FOOT ULCERS. DIET=REGULAR. NO ADDITIONAL NUTRITION INTERVENTIONS AT THIS TIME. RD AVAILABLE NEEDED.
[2022-10-18 16:10] LABS: Glucose, Whole Blood 156 mg/dL (60-115)
[2022-10-18 18:00] VITALS: BP 129/66; PULSE 105; O2SAT 93
[2022-10-18] MEDS: Fluticasone Propionate Nasal 16 GM SPRAY 1 SPRAY NOSTRIL-B (21:16)
[2022-10-18] MEDS: Phenytoin Sodium Extended 100 MG CAPSULE 400 MG PO (21:19)
[2022-10-18] MEDS: traZODone HCL 50 MG TABLET PO (21:22)
[2022-10-18] MEDS: QUEtiapine Fumarate 200 MG TABLET PO (21:22)
[2022-10-18 21:24] LABS: Glucose, Whole Blood 126 mg/dL (60-115)
[2022-10-18] MEDS: 0.9 % Sodium Chloride Flush 10 ML SYRINGE 5 ML IVFLUSH (21:33)
[2022-10-19] MEDS: vancomycin HCL 1,000 MG in 0.9 % Sodium Chloride 250 ML 270 MG IV ×2 (01:06→13:37)
[2022-10-19] MEDS: Omeprazole 20 MG CAPSULE.DR PO (06:38)
[2022-10-19 07:37] LABS: Glucose, Whole Blood 190 mg/dL (60-115)
[2022-10-19 07:50] VITALS: BP 125/63; PULSE 88; RESP 18; TEMP 36.7; O2SAT 94
[2022-10-19 08:38] LABS: Creatinine Clr Calc Pharmacy 139.4; Estimated Glomerular Filt Rate > 60
[2022-10-19 08:39] LABS: Creatinine Clr Calc Pharmacy 139.4; Estimated Glomerular Filt Rate > 60
[2022-10-19] MEDS: Metoprolol Succinate ER 25 MG TAB.ER.24H 75 MG PO ×2 (08:50→20:03)
[2022-10-19] MEDS: DULoxetine HCl 60 MG CAPSULE.DR PO ×2 (08:50→20:03)
[2022-10-19] MEDS: ARIPiprazole 5 MG TABLET 7.5 MG PO (08:50)
[2022-10-19] MEDS: Phenytoin Sodium Extended 100 MG CAPSULE 200 MG PO (08:51)
[2022-10-19] MEDS: Gabapentin 400 MG CAPSULE PO ×4 (08:51→21:33)
[2022-10-19] MEDS: Sennosides 8.6 MG TABLET PO (08:51)
[2022-10-19] MEDS: Torsemide 20 MG TABLET 40 MG PO (08:52)
[2022-10-19] MEDS: metFORMIN HCl 1,000 MG TABLET 1000 MG PO (08:52)
[2022-10-19] MEDS: Atorvastatin Calcium 80 MG TABLET PO (08:52)
[2022-10-19] MEDS: Fluticasone Propionate Nasal 16 GM SPRAY 1 SPRAY NOSTRIL-B (08:53)
[2022-10-19] MEDS: Apixaban 5 MG TABLET PO ×2 (08:53→20:05)
[2022-10-19] MEDS: Insulin Lispro 100 UNIT/ML 3 ML VIAL SUBCUT ×3 (08:57→20:16)
[2022-10-19] MEDS: LORazepam 1 MG TABLET 2 MG PO ×2 (09:04→20:15)
[2022-10-19] MEDS: hydrOXYzine HCL 25 MG TABLET PO (09:04)
[2022-10-19] MEDS: 0.9 % Sodium Chloride Flush 10 ML SYRINGE 5 ML IVFLUSH ×3 (09:16→20:18)
[2022-10-19 11:20] VITALS: BP 115/65; PULSE 112
[2022-10-19 11:27] LABS: Glucose, Whole Blood 221 mg/dL (60-115)
[2022-10-19] MEDS: dilTIAZem HCL CD 120 MG CAP.ER.DEG PO (11:32)
[2022-10-19 11:36] LABS: Vancomycin Trough 17.1 mcg/mL (10.0-20.0)
--- NOTE | 2022-10-19 12:10 | P.PNPSI_ITS ---
Subjective Subjective Date of Service: 10/19/22 Reason For Visit: Major depressive disorder Subjective Notes: Conditional Voluntary Interim History: The nursing staff reported the patient has been alert oriented times tree with poor safety awareness since he transfer himself. He has been trying to be disruptive and security was called yesterday. The social media community manager reported that she will be referred to several [facility] facilities. Apparently [facility] cannot provide services at his home. On interview the patient requested the use of opioids, explain him that he will be followed by the medical team for that. Mental Status Exam Mental Status Exam Patient Appearance: Appropriate Patient Orientation: Person and Situation Level of Consciousness: Awake and Appropriate Patient Behavior: Guarded and Passive Mood Description: Withdrawn Affect Description: Constricted Patient Cognition Impaired: No Ability to Follow Directions: Fair Speech Pattern: Clear Hallucinations: None Delusions: Not Present Thought Process: Goal Oriented and Linear Thought Content: positive for [place] Judgement: Fair Diagnostics Vital Signs (24Hr): Vital Signs - 24 hr 10/18/22 18:00 10/19/22 07:50 10/19/22 11:20 Temperature 98.0 F Pulse Rate 105 H 88 112 H Respiratory Rate 18 Blood Pressure 129/66 125/63 115/65 Pulse Oximetry 93 94 Oxygen Delivery Method Room Air Room Air BMI result Body Mass Index 37.9 Labs 10/07/22 10:53 10/19/22 08:08 Labs: Laboratory Results - last 48 hr 10/17/22 10/17/22 10/18/22 16:23 20:55 07:49 Creatinine Estim Creat Clear Calc Estimated GFR POC Glucose 103 164 H 166 H Vancomycin Trough 10/18/22 10/18/22 10/18/22 08:23 10:57 11:20 Creatinine 0.84 Estim Creat Clear Calc 132.8 Estimated GFR > 60 POC Glucose 163 H Vancomycin Trough 16.7 10/18/22 10/18/22 10/19/22 16:05 21:21 07:32 Creatinine Estim Creat Clear Calc Estimated GFR POC Glucose 156 H 126 H 190 H Vancomycin Trough 10/19/22 10/19/22 10/19/22 08:08 08:08 11:16 Creatinine 0.80 0.80 Estim Creat Clear Calc 139.4 139.4 Estimated GFR > 60 > 60 POC Glucose Vancomycin Trough 17.1 10/19/22 11:24 Creatinine Estim Creat Clear Calc Estimated GFR POC Glucose 221 H Vancomycin Trough Imaging Radiology Impressions: ITS Impressions Hand/Wrist X-Ray 10/07/22 22:07 IMPRESSION: Old healed fracture of the distal shaft of the fifth metacarpal bone and question old or healing fracture of the neck of the fourth metacarpal bone. No acute fracture. Foot X-Ray 10/11/22 12:56 IMPRESSION: RIGHT FOOT: Soft tissue ulceration at the distal aspect of the right great toe. Erosion/lucency through the distal tuft of the 1st distal phalanx, likely indicating osteomyelitis. LEFT FOOT: 1. Soft tissue ulceration along the distal/medial aspect of the great toe with circumferential soft tissue swelling. No radiopaque foreign body. No adjacent cortical erosion or periosteal reaction to suggest acute osteomyelitis, however, this may be occult on plain radiographs. 2. Severe osteoarthritis with prominent bony remodeling throughout the tibiotalar and midfoot joints, similar when compared to the prior radiographs from 2016. Foot X-Ray 10/11/22 12:56 IMPRESSION: RIGHT FOOT: Soft tissue ulceration at the distal aspect of the right great toe. Erosion/lucency through the distal tuft of the 1st distal phalanx, likely indicating osteomyelitis. LEFT FOOT: 1. Soft tissue ulceration along the distal/medial aspect of the great toe with circumferential soft tissue swelling. No radiopaque foreign body. No adjacent cortical erosion or periosteal reaction to suggest acute osteomyelitis, however, this may be occult on plain radiographs. 2. Severe osteoarthritis with prominent bony remodeling throughout the tibiotalar and midfoot joints, similar when compared to the prior radiographs from 2016. Duplex Scan Lower Extremity Artery 10/13/22 19:25 IMPRESSION: 1. No hemodynamically significant stenosis in the right lower extremity. 2. Incidental note is made of cardiac arrhythmia. Chest X-Ray 10/15/22 13:39 IMPRESSION: Right upper extremity PICC line tip projects over SVC. Medications Medications Current Medications Acetaminophen (Acetaminophen 325 Mg Tablet) 650 mg PO Q6H PRN PRN Reason: Headache/Pain Mild Scale (1-3) Last Admin: 10/09/22 23:10 Dose: 650 mg Al Hydroxide/Mg Hydroxide (Magnesium Hydrox/Alum Hydrox 30 Ml Oral.Susp) 30 ml PO Q6H PRN PRN Reason: Heartburn/Nausea Albuterol Sulfate (Albuterol Sulfate 90 Mcg 8 Gm Inhaler) 2 puff INHALE Q4H PRN PRN Reason: Shortness Of Breath Last Admin: 10/13/22 20:21 Dose: 2 puff Apixaban (Apixaban 5 Mg Tablet) 5 mg PO BID [facility] Last Admin: 10/19/22 08:53 Dose: 5 mg Aripiprazole (Aripiprazole 5 Mg Tablet) 7.5 mg PO DAILY [facility] Last Admin: 10/19/22 08:50 Dose: 7.5 mg Atorvastatin Calcium (Atorvastatin Calcium 80 Mg Tablet) 80 mg PO DAILY [facility] Last Admin: 10/19/22 08:52 Dose: 80 mg Diltiazem HCl (Diltiazem Hcl Cd 120 Mg Cap.Er.Deg) 120 mg PO DAILY@11 [facility]; Protocol Last Admin: 10/19/22 11:32 Dose: 120 mg Duloxetine HCl (Duloxetine Hcl 60 Mg Capsule.Dr) 60 mg PO BID [facility] Last Admin: 10/19/22 08:50 Dose: 60 mg Ferrous Sulfate (Ferrous Sulfate 324 Mg Tablet.) 324 mg PO MoWeFr@0900 [facility] Last Admin: 10/18/22 08:30 Dose: Not Given Fluticasone Propionate (Fluticasone Propionate Nasal 16 Gm [place]) 1 spray NOSTRIL-B BID [facility] Last Admin: 10/19/22 08:53 Dose: 1 spray Gabapentin (Gabapentin 400 Mg Capsule) 400 mg PO QID [facility] Last Admin: 10/19/22 08:51 Dose: 400 mg Glucose (Glucose Gel 15 Gm Gel..Gram.) 15 gm PO Q15M PRN; Protocol PRN Reason: per Hypoglycemia Standing Ord. Hydroxyzine HCl (Hydroxyzine Hcl 25 Mg Tablet) 25 mg PO TID PRN PRN Reason: Anxiety Last Admin: 10/19/22 09:04 Dose: 25 mg Dextrose (D10) 250 mls @ 750 mls/hr IV Q15M PRN; Protocol PRN Reason: per Hypoglycemia Standing Ord. Vancomycin HCl 1,000 mg/ (Sodium Chloride) 270 mls @ 270 mls/hr IV Q12H [facility] Last Infusion: 10/19/22 02:06 Dose: Infused Insulin Human Lispro (Insulin Lispro 100 Unit/Ml 3 Ml Vial) 0 unit SUBCUT QIDACHS [facility]; Protocol Last Admin: 10/19/22 11:32 Dose: 4 unit Lidocaine (Lidocaine 4 % Patch Adh..Patch) 1 patch TRANSDERMA DAILY [facility] Last Admin: 10/19/22 08:53 Dose: Not Given Lorazepam (Lorazepam 1 Mg Tablet) 2 mg PO TID PRN PRN Reason: Anxiety Last Admin: 10/19/22 09:04 Dose: 2 mg Magnesium Hydroxide (Milk Of Magnesia 30 Ml Oral.Susp) 30 ml PO DAILY PRN PRN Reason: Constipation Last Admin: 10/08/22 15:52 Dose: 30 ml Melatonin (Melatonin 3 Mg Tablet) 3 mg PO BEDTIME PRN PRN Reason: Insomnia Last Admin: 10/09/22 23:11 Dose: 3 mg Metformin HCl (Metformin Hcl 1,000 Mg Tablet) 1,000 mg PO DAILY [facility] Last Admin: 10/19/22 08:52 Dose: 1,000 mg Metoprolol Succinate (Metoprolol Succinate Er 25 Mg Tab.Er.24h) 75 mg PO BID [facility]; Protocol Last Admin: 10/19/22 08:50 Dose: 75 mg Nitroglycerin (Nitroglycerin 0.4 Mg Tab.Subl) 0.4 mg SUBLINGUAL Q5M PRN PRN Reason: Chest Pain Nystatin (Nystatin Powder 15 Gm Bottle) 1 appl TOPICAL BID [facility]; Protocol Last Admin: 10/19/22 08:53 Dose: Not Given Omeprazole (Omeprazole 20 Mg Capsule.Dr) 20 mg PO DAILY@0630 [facility] Last Admin: 10/19/22 06:38 Dose: 20 mg Ondansetron HCl (Ondansetron Odt 4 Mg Tab.Rapdis) 4 mg TRANSLINGU Q8H PRN PRN Reason: Nausea Pharmacy Consult (Consult Rx Vancomycin Dosing) 1 each MISCELLANE DAILY PRN PRN Reason: Consult order Phenytoin Sodium (Phenytoin Sodium Extended 100 Mg Capsule) 200 mg PO DAILY [facility] Last Admin: 10/19/22 08:51 Dose: 200 mg Phenytoin Sodium (Phenytoin Sodium Extended 100 Mg Capsule) 400 mg PO BEDTIME [facility] Last Admin: 10/18/22 21:19 Dose: 400 mg Quetiapine Fumarate (Quetiapine Fumarate 100 Mg Tablet) 100 mg PO BEDTIME PRN PRN Reason: Insomnia Last Admin: 10/10/22 22:28 Dose: 100 mg Quetiapine Fumarate (Quetiapine Fumarate 200 Mg Tablet) 200 mg PO BEDTIME [facility] Last Admin: 10/18/22 21:22 Dose: 200 mg Senna (Sennosides 8.6 Mg Tablet) 8.6 mg PO DAILY [facility] Last Admin: 10/19/22 08:51 Dose: 8.6 mg Simethicone (Simethicone 80 Mg Tab.Chew) 80 mg PO TID PRN PRN Reason: Indigestion Sodium Chloride (0.9 % Sodium Chloride Flush 10 Ml Syringe) 5 ml IVFLUSH TID [facility] Last Admin: 10/19/22 09:16 Dose: 5 ml Torsemide (Torsemide 20 Mg Tablet) 40 mg PO DAILY [facility]; Protocol Last Admin: 10/19/22 08:52 Dose: 40 mg Trazodone HCl (Trazodone Hcl 50 Mg Tablet) 50 mg PO BEDTIME MRX1 PRN PRN Reason: Insomnia Trazodone HCl (Trazodone Hcl 50 Mg Tablet) 50 mg PO BEDTIME [facility] Last Admin: 10/18/22 21:22 Dose: 50 mg Allergies Allergies Allergy/AdvReac Type Severity Reaction Status Date / Time aspirin Allergy Severe OCCASIONAL Verified 04/08/22 14:18 RASH / TONGUE SWELLING, Hives, throat swellig bee pollen [BEE STINGS] Allergy Severe ANAPHYLAXIS Verified 04/08/22 14:18 Penicillins Allergy Severe ANAPHYLAXIS Verified 04/08/22 14:18 povidone-iodine [Betadine] Allergy Severe Redness of Verified 04/08/22 14:18 Skin soap [Betadine] Allergy Severe Redness of Verified 04/08/22 14:18 Skin spider venom [SPIDER BITES] Allergy Severe Hives Verified 04/08/22 14:18 amoxicillin Allergy Intermediate Hives Verified 04/08/22 14:18 clindamycin Allergy Mild RASH Verified 04/08/22 14:18 latex [Latex] Allergy Mild RASH Verified 04/08/22 14:18 shrimp Allergy Hives Verified 06/21/22 11:48 bupropion [From WELLBUTRIN] AdvReac Severe SEIZURES Verified 04/08/22 14:18 adhesive tape AdvReac Mild Rash Verified 04/14/22 15:55 Assessment & Plan Assessment & Plan (1) Atrial fibrillation with rapid ventricular response: Status: Acute Code(s): I48.91 - Unspecified atrial fibrillation Plan On checking pulse rate using his radial pulse, his rate is about 110/Min. On the recorded vital signs, some of the pulse rates are well within normal range but some of them are quite high up to 145/Min. With regard to the home regimen, listed to be on diltiazem ER 120 mg daily, metoprolol ER 70 mg daily and digoxin alternate days. Current meds however are diltiazem CD 1 20 mg daily with metoprolol at b.i.d. dosing. However, do not see digoxin. Echocardiogram from last year with LVEF of 55-60%. Normal right ventricular size and function. Mildly elevated right atrial pressure. IVC dilated. Other labs reviewed. Hemoglobin 9.7. White cell 6.2. Platelets 280. Potassium 3.5. Creatinine is 0.92. BUN is 18. High sensitivity troponins are well within normal range. Overall, atrial fibrillation with rapid rate could be from holding off on digoxin. Recommend starting it again. There is also discrepancy between what the patient is a send was reconciled. He states he is taking every day. Hence resume digoxin daily after loading dose and monitor EKGs periodically. Will follow as needed. Discussed with psychiatry as well as hospitalist service. Plan 1. Continue with Cymbalta 60 mg p.o. b.i.d. to target depression. At this moment the patient is not suicidal. 2. Continue with medical workout and treatment of osteomyelitis with IV and vanc omycin. We will follow the recommendations of Medicine. 3. Waiting for placement Reason for continued inpatient stay Substantial Risk for: inability to function, rapid decompensation and med/psych decompensation Time Spent With Patient Time: Total time managing care of this patient today _20___ minutes.
[2022-10-19 16:02] LABS: Glucose, Whole Blood 148 mg/dL (60-115)
[2022-10-19 18:00] VITALS: BP 109/59; PULSE 104; RESP 18; TEMP 37.3; O2SAT 95
[2022-10-19] MEDS: QUEtiapine Fumarate 200 MG TABLET PO (20:02)
[2022-10-19] MEDS: Phenytoin Sodium Extended 100 MG CAPSULE 400 MG PO (20:04)
[2022-10-19] MEDS: traZODone HCL 50 MG TABLET PO (20:05)
[2022-10-19 20:26] LABS: Glucose, Whole Blood 160 mg/dL (60-115)
[2022-10-19] MEDS: Albuterol Sulfate 90 MCG 8 GM INHALER 2 PUFF INHALE (20:34)
[2022-10-20] MEDS: vancomycin HCL 1,000 MG in 0.9 % Sodium Chloride 250 ML 270 MG IV ×2 (01:07→13:15)
[2022-10-20] MEDS: Omeprazole 20 MG CAPSULE.DR PO (05:43)
[2022-10-20 08:00] VITALS: BP 117/62; PULSE 94; RESP 18; TEMP 37.1; O2SAT 94
[2022-10-20 08:15] LABS: Estimated Glomerular Filt Rate > 60
[2022-10-20] MEDS: Insulin Lispro 100 UNIT/ML 3 ML VIAL SUBCUT ×3 (09:13→21:02)
[2022-10-20] MEDS: 0.9 % Sodium Chloride Flush 10 ML SYRINGE 5 ML IVFLUSH ×4 (09:14→22:24)
[2022-10-20] MEDS: ARIPiprazole 5 MG TABLET 7.5 MG PO (09:15)
[2022-10-20] MEDS: Phenytoin Sodium Extended 100 MG CAPSULE 200 MG PO (09:15)
[2022-10-20] MEDS: Torsemide 20 MG TABLET 40 MG PO (09:17)
[2022-10-20] MEDS: metFORMIN HCl 1,000 MG TABLET 1000 MG PO (09:17)
[2022-10-20] MEDS: Metoprolol Succinate ER 25 MG TAB.ER.24H 75 MG PO ×2 (09:17→21:00)
[2022-10-20] MEDS: Atorvastatin Calcium 80 MG TABLET PO (09:18)
[2022-10-20] MEDS: Apixaban 5 MG TABLET PO ×2 (09:18→21:05)
[2022-10-20] MEDS: Sennosides 8.6 MG TABLET PO (09:18)
[2022-10-20] MEDS: Gabapentin 400 MG CAPSULE PO ×4 (09:18→21:05)
[2022-10-20] MEDS: DULoxetine HCl 60 MG CAPSULE.DR PO ×2 (09:18→21:05)
[2022-10-20] MEDS: LORazepam 1 MG TABLET 2 MG PO ×2 (09:39→21:07)
[2022-10-20 11:39] LABS: Glucose, Whole Blood 209 mg/dL (60-115)
[2022-10-20 11:39] LABS: Glucose, Whole Blood 182 mg/dL (60-115)
[2022-10-20] MEDS: dilTIAZem HCL CD 120 MG CAP.ER.DEG PO (11:43)
--- NOTE | 2022-10-20 13:47 | HO.PSYCHPN ---
Subjective Subjective Date of Service: 10/20/22 Reason For Visit: Major depressive disorder Subjective Notes: Conditional Voluntary Interim History: The nursing staff reported the patient has been social and pleasant med compliant. No need to call security still sexually inappropriate at times. He slept 2 hours last night. On interview the patient wanted his opiates back I explained him that he should be addressed by the medical team. Mental Status Exam Mental Status Exam Patient Appearance: Appropriate Patient Orientation: Person and Situation Level of Consciousness: Awake and Appropriate Patient Behavior: Guarded and Passive Mood Description: Withdrawn Affect Description: Constricted Patient Cognition Impaired: Yes Ability to Follow Directions: Good Speech Pattern: Clear Hallucinations: None Delusions: Not Present Thought Process: Distracted and Linear Thought Content: positive for [place] and positive for Circumstantial Judgement: Fair Diagnostics Vital Signs (24Hr): Vital Signs - 24 hr 10/19/22 18:00 10/20/22 08:00 Temperature 99.1 F 98.8 F Pulse Rate 104 H 94 Respiratory Rate 18 18 Blood Pressure 109/59 L 117/62 Pulse Oximetry 95 94 Oxygen Delivery Method Room Air Room Air BMI result Body Mass Index 37.9 Labs 10/07/22 10:53 10/20/22 07:47 Labs: Laboratory Results - last 48 hr 10/18/22 10/18/22 10/19/22 16:05 21:21 07:32 Creatinine Estim Creat Clear Calc Estimated GFR POC Glucose 156 H 126 H 190 H Vancomycin Trough 10/19/22 10/19/22 10/19/22 08:08 08:08 11:16 Creatinine 0.80 0.80 Estim Creat Clear Calc 139.4 139.4 Estimated GFR > 60 > 60 POC Glucose Vancomycin Trough 17.1 10/19/22 10/19/22 10/19/22 11:24 15:57 20:01 Creatinine Estim Creat Clear Calc Estimated GFR POC Glucose 221 H 148 H 160 H Vancomycin Trough 10/20/22 10/20/22 10/20/22 07:47 08:00 11:30 Creatinine 0.78 Estim Creat Clear Calc 143.0 Estimated GFR > 60 POC Glucose 182 H 209 H Vancomycin Trough Imaging Radiology Impressions: ITS Impressions Hand/Wrist X-Ray 10/07/22 22:07 IMPRESSION: Old healed fracture of the distal shaft of the fifth metacarpal bone and question old or healing fracture of the neck of the fourth metacarpal bone. No acute fracture. Foot X-Ray 10/11/22 12:56 IMPRESSION: RIGHT FOOT: Soft tissue ulceration at the distal aspect of the right great toe. Erosion/lucency through the distal tuft of the 1st distal phalanx, likely indicating osteomyelitis. LEFT FOOT: 1. Soft tissue ulceration along the distal/medial aspect of the great toe with circumferential soft tissue swelling. No radiopaque foreign body. No adjacent cortical erosion or periosteal reaction to suggest acute osteomyelitis, however, this may be occult on plain radiographs. 2. Severe osteoarthritis with prominent bony remodeling throughout the tibiotalar and midfoot joints, similar when compared to the prior radiographs from 2016. Foot X-Ray 10/11/22 12:56 IMPRESSION: RIGHT FOOT: Soft tissue ulceration at the distal aspect of the right great toe. Erosion/lucency through the distal tuft of the 1st distal phalanx, likely indicating osteomyelitis. LEFT FOOT: 1. Soft tissue ulceration along the distal/medial aspect of the great toe with circumferential soft tissue swelling. No radiopaque foreign body. No adjacent cortical erosion or periosteal reaction to suggest acute osteomyelitis, however, this may be occult on plain radiographs. 2. Severe osteoarthritis with prominent bony remodeling throughout the tibiotalar and midfoot joints, similar when compared to the prior radiographs from 2016. Duplex Scan Lower Extremity Artery 10/13/22 19:25 IMPRESSION: 1. No hemodynamically significant stenosis in the right lower extremity. 2. Incidental note is made of cardiac arrhythmia. Chest X-Ray 10/15/22 13:39 IMPRESSION: Right upper extremity PICC line tip projects over SVC. Medications Medications Current Medications Acetaminophen (Acetaminophen 325 Mg Tablet) 650 mg PO Q6H PRN PRN Reason: Headache/Pain Mild Scale (1-3) Last Admin: 10/09/22 23:10 Dose: 650 mg Al Hydroxide/Mg Hydroxide (Magnesium Hydrox/Alum Hydrox 30 Ml Oral.Susp) 30 ml PO Q6H PRN PRN Reason: Heartburn/Nausea Albuterol Sulfate (Albuterol Sulfate 90 Mcg 8 Gm Inhaler) 2 puff INHALE Q4H PRN PRN Reason: Shortness Of Breath Last Admin: 10/19/22 20:34 Dose: 2 puff Apixaban (Apixaban 5 Mg Tablet) 5 mg PO BID YOHAN Last Admin: 10/20/22 09:18 Dose: 5 mg Aripiprazole (Aripiprazole 5 Mg Tablet) 7.5 mg PO DAILY [facility] Last Admin: 10/20/22 09:15 Dose: 7.5 mg Atorvastatin Calcium (Atorvastatin Calcium 80 Mg Tablet) 80 mg PO DAILY [facility] Last Admin: 10/20/22 09:18 Dose: 80 mg Diltiazem HCl (Diltiazem Hcl Cd 120 Mg Cap.Er.Deg) 120 mg PO DAILY@11 [facility]; Protocol Last Admin: 10/20/22 11:43 Dose: 120 mg Duloxetine HCl (Duloxetine Hcl 60 Mg Capsule.Dr) 60 mg PO BID [facility] Last Admin: 10/20/22 09:18 Dose: 60 mg Ferrous Sulfate (Ferrous Sulfate 324 Mg Tablet.Dr) 324 mg PO MoWeFr@0900 [facility] Last Admin: 10/20/22 09:26 Dose: Not Given Fluticasone Propionate (Fluticasone Propionate Nasal 16 Gm [place]) 1 spray NOSTRIL-B BID [facility] Last Admin: 10/20/22 09:18 Dose: Not Given Gabapentin (Gabapentin 400 Mg Capsule) 400 mg PO QID [facility] Last Admin: 10/20/22 13:15 Dose: 400 mg Glucose (Glucose Gel 15 Gm Gel..Gram.) 15 gm PO Q15M PRN; Protocol PRN Reason: per Hypoglycemia Standing Ord. Hydroxyzine HCl (Hydroxyzine Hcl 25 Mg Tablet) 25 mg PO TID PRN PRN Reason: Anxiety Last Admin: 10/19/22 09:04 Dose: 25 mg Dextrose (D10) 250 mls @ 750 mls/hr IV Q15M PRN; Protocol PRN Reason: per Hypoglycemia Standing Ord. Vancomycin HCl 1,000 mg/ (Sodium Chloride) 270 mls @ 270 mls/hr IV Q12H [facility] Last Admin: 10/20/22 13:15 Dose: 270 mls/hr Insulin Human Lispro (Insulin Lispro 100 Unit/Ml 3 Ml Vial) 0 unit SUBCUT QIDACHS [facility]; Protocol Last Admin: 10/20/22 11:43 Dose: 4 unit Lidocaine (Lidocaine 4 % Patch Adh..Patch) 1 patch TRANSDERMA DAILY [facility] Last Admin: 10/20/22 09:18 Dose: Not Given Lorazepam (Lorazepam 1 Mg Tablet) 2 mg PO TID PRN PRN Reason: Anxiety Last Admin: 05/17/23 09:39 Dose: 2 mg Magnesium Hydroxide (Milk Of Magnesia 30 Ml Oral.Susp) 30 ml PO DAILY PRN PRN Reason: Constipation Last Admin: 10/08/22 15:52 Dose: 30 ml Melatonin (Melatonin 3 Mg Tablet) 3 mg PO BEDTIME PRN PRN Reason: Insomnia Last Admin: 10/09/22 23:11 Dose: 3 mg Metformin HCl (Metformin Hcl 1,000 Mg Tablet) 1,000 mg PO DAILY [facility] Last Admin: 10/20/22 09:17 Dose: 1,000 mg Metoprolol Succinate (Metoprolol Succinate Er 25 Mg Tab.Er.24h) 75 mg PO BID [facility]; Protocol Last Admin: 10/20/22 09:17 Dose: 75 mg Nitroglycerin (Nitroglycerin 0.4 Mg Tab.Subl) 0.4 mg SUBLINGUAL Q5M PRN PRN Reason: Chest Pain Nystatin (Nystatin Powder 15 Gm Bottle) 1 appl TOPICAL BID [facility]; Protocol Last Admin: 10/20/22 09:19 Dose: Not Given Omeprazole (Omeprazole 20 Mg Capsule.Dr) 20 mg PO DAILY@0630 [facility] Last Admin: 10/20/22 05:43 Dose: 20 mg Ondansetron HCl (Ondansetron Odt 4 Mg Tab.Rapdis) 4 mg TRANSLINGU Q8H PRN PRN Reason: Nausea Pharmacy Consult (Consult Rx Vancomycin Dosing) 1 each MISCELLANE DAILY PRN PRN Reason: Consult order Phenytoin Sodium (Phenytoin Sodium Extended 100 Mg Capsule) 200 mg PO DAILY [facility] Last Admin: 10/20/22 09:15 Dose: 200 mg Phenytoin Sodium (Phenytoin Sodium Extended 100 Mg Capsule) 400 mg PO BEDTIME [facility] Last Admin: 10/19/22 20:04 Dose: 400 mg Quetiapine Fumarate (Quetiapine Fumarate 100 Mg Tablet) 100 mg PO BEDTIME PRN PRN Reason: Insomnia Last Admin: 10/10/22 22:28 Dose: 100 mg Quetiapine Fumarate (Quetiapine Fumarate 200 Mg Tablet) 200 mg PO BEDTIME [facility] Last Admin: 10/19/22 20:02 Dose: 200 mg Senna (Sennosides 8.6 Mg Tablet) 8.6 mg PO DAILY [facility] Last Admin: 10/20/22 09:18 Dose: 8.6 mg Simethicone (Simethicone 80 Mg Tab.Chew) 80 mg PO TID PRN PRN Reason: Indigestion Sodium Chloride (0.9 % Sodium Chloride Flush 10 Ml Syringe) 5 ml IVFLUSH TID [facility] Last Admin: 10/20/22 13:14 Dose: 5 ml Torsemide (Torsemide 20 Mg Tablet) 40 mg PO DAILY [facility]; Protocol Last Admin: 10/20/22 09:17 Dose: 40 mg Trazodone HCl (Trazodone Hcl 50 Mg Tablet) 50 mg PO BEDTIME MRX1 PRN PRN Reason: Insomnia Trazodone HCl (Trazodone Hcl 50 Mg Tablet) 50 mg PO BEDTIME [facility] Last Admin: 10/19/22 20:05 Dose: 50 mg Allergies Allergies Allergy/AdvReac Type Severity Reaction Status Date / Time aspirin Allergy Severe OCCASIONAL Verified 04/08/22 14:18 RASH / TONGUE SWELLING, Hives, throat swellig bee pollen [BEE STINGS] Allergy Severe ANAPHYLAXIS Verified 04/08/22 14:18 Penicillins Allergy Severe ANAPHYLAXIS Verified 04/08/22 14:18 povidone-iodine [Betadine] Allergy Severe Redness of Verified 04/08/22 14:18 Skin soap [Betadine] Allergy Severe Redness of Verified 04/08/22 14:18 Skin spider venom [SPIDER BITES] Allergy Severe Hives Verified 04/08/22 14:18 amoxicillin Allergy Intermediate Hives Verified 04/08/22 14:18 clindamycin Allergy Mild RASH Verified 04/08/22 14:18 latex [Latex] Allergy Mild RASH Verified 04/08/22 14:18 shrimp Allergy Hives Verified 06/21/22 11:48 bupropion [From WELLBUTRIN] AdvReac Severe SEIZURES Verified 04/08/22 14:18 adhesive tape AdvReac Mild Rash Verified 04/14/22 15:55 Assessment & Plan Assessment & Plan (1) Atrial fibrillation with rapid ventricular response: Status: Acute Code(s): I48.91 - Unspecified atrial fibrillation Plan On checking pulse rate using his radial pulse, his rate is about 110/Min. On the recorded vital signs, some of the pulse rates are well within normal range but some of them are quite high up to 145/Min. With regard to the home regimen, listed to be on diltiazem ER 120 mg daily, metoprolol ER 70 mg daily and digoxin alternate days. Current meds however are diltiazem CD 1 20 mg daily with metoprolol at b.i.d. dosing. However, do not see digoxin. Echocardiogram from last year with LVEF of 55-60%. Normal right ventricular size and function. Mildly elevated right atrial pressure. IVC dilated. Other labs reviewed. Hemoglobin 9.7. White cell 6.2. Platelets 280. Potassium 3.5. Creatinine is 0.92. BUN is 18. High sensitivity troponins are well within normal range. Overall, atrial fibrillation with rapid rate could be from holding off on digoxin. Recommend starting it again. There is also discrepancy between what the patient is a send was reconciled. He states he is taking every day. Hence resume digoxin daily after loading dose and monitor EKGs periodically. Will follow as needed. Discussed with psychiatry as well as hospitalist service. Plan 1. Continue with Cymbalta 60 mg p.o. b.i.d. to target depression. At this moment the patient is not suicidal. 2. Continue with medical workout and treatment of osteomyelitis with IV and vancomycin. We will follow the recommendations of Medicine. 3. Waiting for placement Reason for continued inpatient stay Substantial Risk for: inability to function, rapid decompensation and med/psych decompensation Time Spent With Patient Time: Total time managing care of this patient today __20__ minutes.
[2022-10-20 16:29] LABS: Glucose, Whole Blood 127 mg/dL (60-115)
[2022-10-20 20:58] LABS: Glucose, Whole Blood 163 mg/dL (60-115)
[2022-10-20 21:00] VITALS: BP 122/78; PULSE 95; RESP 16; TEMP 36.6
[2022-10-20] MEDS: Phenytoin Sodium Extended 100 MG CAPSULE 400 MG PO (21:03)
[2022-10-20] MEDS: QUEtiapine Fumarate 200 MG TABLET PO (21:04)
[2022-10-20] MEDS: traZODone HCL 50 MG TABLET PO (21:06)
[2022-10-20] MEDS: Albuterol Sulfate 90 MCG 8 GM INHALER 2 PUFF INHALE (21:09)
[2022-10-20 21:46] LABS: Vancomycin Random 18.5 mcg/mL (15-20)
[2022-10-20 22:04] VITALS: RESP 18
--- NOTE | 2022-10-20 23:58 | PC.NURSE ---
SPOKE WITH PHARMACIST GERMÁN IN REGARD TO 2100 RANDOM VANCO LEVEL 18.5. PLAN TO GIVE 0100 VANCO 1 GRAM IVSS AND REPEAT LEVEL TOMORROW.
[2022-10-21] MEDS: vancomycin HCL 1,000 MG in 0.9 % Sodium Chloride 250 ML 270 MG IV ×2 (01:14→13:46)
[2022-10-21] MEDS: Omeprazole 20 MG CAPSULE.DR PO (06:18)
[2022-10-21 07:57] LABS: Glucose, Whole Blood 209 mg/dL (60-115)
[2022-10-21 08:30] VITALS: BP 128/68; PULSE 95; RESP 16; TEMP 36.4; O2SAT 96
[2022-10-21 09:12] LABS: Creatinine Clr Calc Pharmacy 131.2; Estimated Glomerular Filt Rate > 60
[2022-10-21] MEDS: 0.9 % Sodium Chloride Flush 10 ML SYRINGE 5 ML IVFLUSH ×4 (09:25→21:43)
[2022-10-21] MEDS: metFORMIN HCl 1,000 MG TABLET 1000 MG PO (09:27)
[2022-10-21] MEDS: DULoxetine HCl 60 MG CAPSULE.DR PO ×2 (09:27→21:46)
[2022-10-21] MEDS: ARIPiprazole 5 MG TABLET 7.5 MG PO (09:27)
[2022-10-21] MEDS: Torsemide 20 MG TABLET 40 MG PO (09:27)
[2022-10-21] MEDS: Phenytoin Sodium Extended 100 MG CAPSULE 200 MG PO (09:27)
[2022-10-21] MEDS: Gabapentin 400 MG CAPSULE PO ×4 (09:27→21:46)
[2022-10-21] MEDS: Sennosides 8.6 MG TABLET PO (09:28)
[2022-10-21] MEDS: Apixaban 5 MG TABLET PO ×2 (09:28→21:46)
[2022-10-21] MEDS: Metoprolol Succinate ER 25 MG TAB.ER.24H 75 MG PO ×2 (09:28→21:43)
[2022-10-21] MEDS: Atorvastatin Calcium 80 MG TABLET PO (09:28)
[2022-10-21] MEDS: LORazepam 1 MG TABLET 2 MG PO ×2 (09:38→17:30)
[2022-10-21 09:49] VITALS: BMI 39.5
[2022-10-21 09:53] VITALS: BP 122/78; PULSE 95
[2022-10-21 11:32] LABS: Glucose, Whole Blood 192 mg/dL (60-115)
[2022-10-21] MEDS: Insulin Lispro 100 UNIT/ML 3 ML VIAL SUBCUT (11:46)
[2022-10-21] MEDS: dilTIAZem HCL CD 120 MG CAP.ER.DEG PO (12:14)
[2022-10-21 12:15] LABS: Vancomycin Random 12.1 mcg/mL (15-20)
--- NOTE | 2022-10-21 15:32 | P.PNPSI_ITS ---
Subjective Subjective Date of Service: 10/21/22 Reason For Visit: Major depressive disorder Subjective Notes: Conditional Voluntary Interim History: The nursing staff reported the patient denies new symptoms, he had been taking his med, icing as prescribed. He has refused fluticasone and reported that in the past he never used it. The social services specialist reported that we have apply for short-term and long-term rehab. On interview the patient denies new symptoms no evidence of suicidal ideation. Diagnostics Vital Signs (24Hr): Vital Signs - 24 hr 10/20/22 22:04 10/20/22 21:00 10/21/22 09:53 Temperature 97.8 F Pulse Rate 95 95 Respiratory Rate 18 16 Blood Pressure 122/78 122/78 Pulse Oximetry Oxygen Delivery Method Room Air 10/21/22 08:30 Temperature 97.6 F Pulse Rate 95 Respiratory Rate 16 Blood Pressure 128/68 Pulse Oximetry 96 Oxygen Delivery Method Room Air BMI result Body Mass Index 39.5 Labs 10/07/22 10:53 10/21/22 08:01 Labs: Laboratory Results - last 48 hr 10/19/22 10/19/22 10/20/22 15:57 20:01 07:47 Creatinine 0.78 Estim Creat Clear Calc 143.0 Estimated GFR > 60 POC Glucose 148 H 160 H Random Vancomycin 10/20/22 10/20/22 10/20/22 08:00 11:30 16:22 Creatinine Estim Creat Clear Calc Estimated GFR POC Glucose 182 H 209 H 127 H Random Vancomycin 10/20/22 10/20/22 10/21/22 20:48 20:54 07:49 Creatinine Estim Creat Clear Calc Estimated GFR POC Glucose 163 H 209 H Random Vancomycin 18.5 10/21/22 10/21/22 10/21/22 08:01 11:28 11:31 Creatinine 0.85 Estim Creat Clear Calc 131.2 Estimated GFR > 60 POC Glucose 192 H Random Vancomycin 12.1 L Imaging Radiology Impressions: ITS Impressions Hand/Wrist X-Ray 10/07/22 22:07 IMPRESSION: Old healed fracture of the distal shaft of the fifth metacarpal bone and question old or healing fracture of the neck of the fourth metacarpal bone. No acute fracture. Foot X-Ray 10/11/22 12:56 IMPRESSION: RIGHT FOOT: Soft tissue ulceration at the distal aspect of the right great toe. Erosion/lucency through the distal tuft of the 1st distal phalanx, likely indicating osteomyelitis. LEFT FOOT: 1. Soft tissue ulceration along the distal/medial aspect of the great toe with circumferential soft tissue swelling. No radiopaque foreign body. No adjacent cortical erosion or periosteal reaction to suggest acute osteomyelitis, however, this may be occult on plain radiographs. 2. Severe osteoarthritis with prominent bony remodeling throughout the tibiotalar and midfoot joints, similar when compared to the prior radiographs from 2016. Foot X-Ray 10/11/22 12:56 IMPRESSION: RIGHT FOOT: Soft tissue ulceration at the distal aspect of the right great toe. Erosion/lucency through the distal tuft of the 1st distal phalanx, likely indicating osteomyelitis. LEFT FOOT: 1. Soft tissue ulceration along the distal/medial aspect of the great toe with circumferential soft tissue swelling. No radiopaque foreign body. No adjacent cortical erosion or periosteal reaction to suggest acute osteomyelitis, however, this may be occult on plain radiographs. 2. Severe osteoarthritis with prominent bony remodeling throughout the tibiotalar and midfoot joints, similar when compared to the prior radiographs from 2016. Duplex Scan Lower Extremity Artery 10/13/22 19:25 IMPRESSION: 1. No hemodynamically significant stenosis in the right lower extremity. 2. Incidental note is made of cardiac arrhythmia. Chest X-Ray 10/15/22 13:39 IMPRESSION: Right upper extremity PICC line tip projects over SVC. Medications Medications Current Medications Acetaminophen (Acetaminophen 325 Mg Tablet) 650 mg PO Q6H PRN PRN Reason: Headache/Pain Mild Scale (1-3) Last Admin: 10/09/22 23:10 Dose: 650 mg Al Hydroxide/Mg Hydroxide (Magnesium Hydrox/Alum Hydrox 30 Ml Oral.Susp) 30 ml PO Q6H PRN PRN Reason: Heartburn/Nausea Albuterol Sulfate (Albuterol Sulfate 90 Mcg 8 Gm Inhaler) 2 puff INHALE Q4H PRN PRN Reason: Shortness Of Breath Last Admin: 10/20/22 21:09 Dose: 2 puff Apixaban (Apixaban 5 Mg Tablet) 5 mg PO BID [facility] Last Admin: 10/21/22 09:28 Dose: 5 mg Aripiprazole (Aripiprazole 5 Mg Tablet) 7.5 mg PO DAILY [facility] Last Admin: 10/21/22 09:27 Dose: 7.5 mg Atorvastatin Calcium (Atorvastatin Calcium 80 Mg Tablet) 80 mg PO DAILY [facility] Last Admin: 10/21/22 09:28 Dose: 80 mg Diltiazem HCl (Diltiazem Hcl Cd 120 Mg Cap.Er.Deg) 120 mg PO DAILY@11 [facility]; Protocol Last Admin: 10/21/22 12:14 Dose: 120 mg Duloxetine HCl (Duloxetine Hcl 60 Mg Capsule.) 60 mg PO BID [facility] Last Admin: 10/21/22 09:27 Dose: 60 mg Ferrous Sulfate (Ferrous Sulfate 324 Mg Tablet.) 324 mg PO MoWeFr@0900 [facility] Last Admin: 10/20/22 09:26 Dose: Not Given Gabapentin (Gabapentin 400 Mg Capsule) 400 mg PO QID [facility] Last Admin: 10/21/22 12:17 Dose: 400 mg Glucose (Glucose Gel 15 Gm Gel..Gram.) 15 gm PO Q15M PRN; Protocol PRN Reason: per Hypoglycemia Standing Ord. Hydroxyzine HCl (Hydroxyzine Hcl 25 Mg Tablet) 25 mg PO TID PRN PRN Reason: Anxiety Last Admin: 10/19/22 09:04 Dose: 25 mg Dextrose (D10) 250 mls @ 750 mls/hr IV Q15M PRN; Protocol PRN Reason: per Hypoglycemia Standing Ord. Vancomycin HCl 1,000 mg/ (Sodium Chloride) 270 mls @ 270 mls/hr IV Q12H [facility] Last Admin: 10/21/22 13:46 Dose: 270 mls/hr Insulin Human Lispro (Insulin Lispro 100 Unit/Ml 3 Ml Vial) 0 [facility]I [facility]; Protocol Last Admin: 10/21/22 11:46 Dose: 2 unit Lidocaine (Lidocaine 4 % Patch Adh..Patch) 1 patch TRANSDERMA DAILY [facility] Last Admin: 10/21/22 09:29 Dose: Not Given Lorazepam (Lorazepam 1 Mg Tablet) 2 mg PO TID PRN PRN Reason: Anxiety Last Admin: 10/21/22 09:38 Dose: 2 mg Magnesium Hydroxide (Milk Of Magnesia 30 Ml Oral.Susp) 30 ml PO DAILY PRN PRN Reason: Constipation Last Admin: 10/08/22 15:52 Dose: 30 ml Melatonin (Melatonin 3 Mg Tablet) 3 mg PO BEDTIME PRN PRN Reason: Insomnia Last Admin: 10/09/22 23:11 Dose: 3 mg Metformin HCl (Metformin Hcl 1,000 Mg Tablet) 1,000 mg PO DAILY [facility] Last Admin: 10/21/22 09:27 Dose: 1,000 mg Metoprolol Succinate (Metoprolol Succinate Er 25 Mg Tab.Er.24h) 75 mg PO BID [facility]; Protocol Last Admin: 10/21/22 09:28 Dose: 75 mg Nitroglycerin (Nitroglycerin 0.4 Mg Tab.Subl) 0.4 mg SUBLINGUAL Q5M PRN PRN Reason: Chest Pain Nystatin (Nystatin Powder 15 Gm Bottle) 1 appl TOPICAL BID [facility]; Protocol Last Admin: 10/21/22 09:45 Dose: Not Given Omeprazole (Omeprazole 20 Mg Capsule.Dr) 20 mg PO DAILY@0630 [facility] Last Admin: 10/21/22 06:18 Dose: 20 mg Ondansetron HCl (Ondansetron Odt 4 Mg Tab.Rapdis) 4 mg TRANSLINGU Q8H PRN PRN Reason: Nausea Pharmacy Consult (Consult Rx Vancomycin Dosing) 1 each MISCELLANE DAILY PRN PRN Reason: Consult order Phenytoin Sodium (Phenytoin Sodium Extended 100 Mg Capsule) 200 mg PO DAILY [facility] Last Admin: 10/21/22 09:27 Dose: 200 mg Phenytoin Sodium (Phenytoin Sodium Extended 100 Mg Capsule) 400 mg PO BEDTIME [facility] Last Admin: 10/20/22 21:03 Dose: 400 mg Quetiapine Fumarate (Quetiapine Fumarate 100 Mg Tablet) 100 mg PO BEDTIME PRN PRN Reason: Insomnia Last Admin: 10/10/22 22:28 Dose: 100 mg Quetiapine Fumarate (Quetiapine Fumarate 200 Mg Tablet) 200 mg PO BEDTIME [facility] Last Admin: 10/20/22 21:04 Dose: 200 mg Senna (Sennosides 8.6 Mg Tablet) 8.6 mg PO DAILY [facility] Last Admin: 10/21/22 09:28 Dose: 8.6 mg Simethicone (Simethicone 80 Mg Tab.Chew) 80 mg PO TID PRN PRN Reason: Indigestion Sodium Chloride (0.9 % Sodium Chloride Flush 10 Ml Syringe) 5 ml IVFLUSH TID [facility] Last Admin: 10/21/22 13:40 Dose: 5 ml Torsemide (Torsemide 20 Mg Tablet) 40 mg PO DAILY [facility]; Protocol Last Admin: 10/21/22 09:27 Dose: 40 mg Trazodone HCl (Trazodone Hcl 50 Mg Tablet) 50 mg PO BEDTIME MRX1 PRN PRN Reason: Insomnia Trazodone HCl (Trazodone Hcl 50 Mg Tablet) 50 mg PO BEDTIME [facility] Last Admin: 10/20/22 21:06 Dose: 50 mg Allergies Allergies Allergy/AdvReac Type Severity Reaction Status Date / Time aspirin Allergy Severe OCCASIONAL Verified 04/08/22 14:18 RASH / TONGUE SWELLING, Hives, throat swellig bee pollen [BEE STINGS] Allergy Severe ANAPHYLAXIS Verified 04/08/22 14:18 Penicillins Allergy Severe ANAPHYLAXIS Verified 04/08/22 14:18 povidone-iodine [Betadine] Allergy Severe Redness of Verified 04/08/22 14:18 Skin soap [Betadine] Allergy Severe Redness of Verified 04/08/22 14:18 Skin spider venom [SPIDER BITES] Allergy Severe Hives Verified 04/08/22 14:18 amoxicillin Allergy Intermediate Hives Verified 04/08/22 14:18 clindamycin Allergy Mild RASH Verified 04/08/22 14:18 latex [Latex] Allergy Mild RASH Verified 04/08/22 14:18 shrimp Allergy Hives Verified 06/21/22 11:48 bupropion [From WELLBUTRIN] AdvReac Severe SEIZURES Verified 04/08/22 14:18 adhesive tape AdvReac Mild Rash Verified 04/14/22 15:55 Assessment & Plan Assessment & Plan (1) Atrial fibrillation with rapid ventricular response: Status: Acute Code(s): I48.91 - Unspecified atrial fibrillation Plan On checking pulse rate using his radial pulse, his rate is about 110/Min. On the recorded vital signs, some of the pulse rates are well within normal range but some of them are quite high up to 145/Min. With regard to the home regimen, listed to be on diltiazem ER 120 mg daily, metoprolol ER 70 mg daily and digoxin alternate days. Current meds however are diltiazem CD 1 20 mg daily with metoprolol at b.i.d. dosing. However, do not see digoxin. Echocardiogram from last year with LVEF of 55-60%. Normal right ventricular size and function. Mildly elevated right atrial pressure. IVC dilated. Other labs reviewed. Hemoglobin 9.7. White cell 6.2. Platelets 280. Potassium 3.5. Creatinine is 0.92. BUN is 18. High sensitivity troponins are well within normal range. Overall, atrial fibrillation with rapid rate could be from holding off on digoxin. Recommend starting it again. There is also discrepancy between what the patient is a send was reconciled. He states he is taking every day. Hence resume digoxin daily after loading dose and monitor EKGs periodically. Will follow as needed. Discussed with psychiatry as well as hospitalist service. Plan 1. Continue with Cymbalta 60 mg p.o. b.i.d. to target depression. At this moment the patient is not suicidal. 2. Continue with medical workout and treatment of osteomyelitis with IV and vancomycin. We will follow the recommendations of Medicine. 3. Waiting for placement Reason for continued inpatient stay Substantial Risk for: inability to function, rapid decompensation and med/psych decompensation Time Spent With Patient Time: Total time managing care of this patient today _20___ minutes.
--- NOTE | 2022-10-21 16:16 | HO.WOUND ---
Wound Care Consult Reason for consult: toe infected Patient has a wound on the right great toe. Was seen on 10/11/22 by manolo lacey, and at that time alginate ag was ordered. Now at the time of this consult, wound bed is dry, no drainage could be expressed. Surrounding tissue was intact with no abnormalities. Wound measured 1.7cm x 1.8cm x 0.1cm. Also patient did have me look at his left heel because of some pain he was having. There was a 1.5cm x 2.5cm area of DTI. Did have a conversation about offloading with the patient. Recommendation: Would recommend just a dcd to the right great toe to keep it protected at this point from ambulating and any other pressure. As for the Left lateral heel, offload this area as much as possible. While in bed, if using pillows, make sure heel is floating off of bed. If there are any other concerns, please feel free to reach back out and if on discharge patient is still in need of wound care services, an appt can be set up with [facility] outpatient [place] care center.
[2022-10-21] MEDS: Phenytoin Sodium Extended 100 MG CAPSULE 400 MG PO (21:44)
[2022-10-21 21:45] VITALS: BP 126/58; PULSE 111; TEMP 37.2; O2SAT 96
[2022-10-21] MEDS: traZODone HCL 50 MG TABLET PO (21:46)
[2022-10-21] MEDS: QUEtiapine Fumarate 200 MG TABLET PO (21:46)
[2022-10-22] MEDS: LORazepam 1 MG TABLET 2 MG PO ×3 (00:11→20:56)
[2022-10-22] MEDS: vancomycin HCL 1,000 MG in 0.9 % Sodium Chloride 250 ML 270 MG IV ×2 (01:23→13:44)
[2022-10-22] MEDS: Omeprazole 20 MG CAPSULE.DR PO (06:23)
[2022-10-22 07:39] LABS: Creatinine Clr Calc Pharmacy 139.1; Estimated Glomerular Filt Rate > 60
[2022-10-22 07:45] VITALS: BP 113/72; PULSE 88; RESP 18; TEMP 36.6; O2SAT 95
--- NOTE | 2022-10-22 10:15 | MHC.CLN ---
F/U PATIENT ASKED TO SPEAK WITH RD ABOUT DIET, WEIGHT GAIN, FOOD CHOICES. STATED THAT HAS GAINED 19# SINCE ADMISSION. REVIEW OF WEIGHT HX SHOWS VARIABLE WEIGHTS: 10/04/22=142.882 KG, 10/07/22=137.5 KG, 10/21/22=143.4 KG. SUSPECT ERROR WITH EITHER 10/04 OR 10/07 WEIGHT. STATED THAT FEELS LIKE HAS GAINED WEIGHT AND APPEARS TO BE AT HEAVIER WEIGHT. HAS HX DM AND TAKES DM MEDS. ALSO TAKE TORSEMIDE WHICH COULD CONTRIBUTE TO FLUID BALANCE. PATIENT WOULD LIKE DIABETIC DIET. DISCUSSED SOME FOODS THAT WOULD BE RESTRICTED AND APPEARS TO UNDERSTAND. DIET CHANGED TO DIABETIC 2200 KCALS. GSR AWARE OF DIET CHANGE.
[2022-10-22 10:16] VITALS: BP 126/58; PULSE 111; O2SAT 96
[2022-10-22] MEDS: Apixaban 5 MG TABLET PO ×2 (11:29→20:44)
[2022-10-22] MEDS: Torsemide 20 MG TABLET 40 MG PO (11:29)
[2022-10-22] MEDS: ARIPiprazole 5 MG TABLET 7.5 MG PO (11:29)
[2022-10-22] MEDS: Phenytoin Sodium Extended 100 MG CAPSULE 200 MG PO (11:29)
[2022-10-22] MEDS: Atorvastatin Calcium 80 MG TABLET PO (11:29)
[2022-10-22] MEDS: Metoprolol Succinate ER 25 MG TAB.ER.24H 75 MG PO ×2 (11:30→20:43)
[2022-10-22] MEDS: Gabapentin 400 MG CAPSULE PO ×4 (11:30→20:43)
[2022-10-22] MEDS: DULoxetine HCl 60 MG CAPSULE.DR PO ×2 (11:30→20:44)
[2022-10-22] MEDS: metFORMIN HCl 1,000 MG TABLET 1000 MG PO (11:30)
[2022-10-22] MEDS: Sennosides 8.6 MG TABLET PO (11:31)
[2022-10-22] MEDS: 0.9 % Sodium Chloride Flush 10 ML SYRINGE 5 ML IVFLUSH ×3 (11:32→21:19)
[2022-10-22 11:53] LABS: Vancomycin Random 13.9 mcg/mL (15-20)
[2022-10-22] MEDS: dilTIAZem HCL CD 120 MG CAP.ER.DEG PO (12:03)
[2022-10-22] MEDS: Insulin Lispro 100 UNIT/ML 3 ML VIAL SUBCUT ×3 (12:06→21:18)
--- NOTE | 2022-10-22 12:13 | HE.PHANOTE ---
Vancomcyin Dosing Addendum Patients level came back this morning at 0.82. LEaving dose at 1000 mg Q12H as patient has been stable. Renal function stable. Next draw 10/24 @1100. Predicted AUC 495 mg/L/hr
--- NOTE | 2022-10-22 15:08 | P.PNPSI_ITS ---
Subjective Subjective Date of Service: 10/22/22 Reason For Visit: Major depressive disorder Subjective Notes: Conditional Voluntary Interim History: The nursing staff reported the patient had been compliant with treatment, he denies active suicidal ideation. He still on Vanco for osteomielitis. On interview denies new symptoms besides an injury on his knee, requesting pain management, waiting for placement. Mental Status Exam Mental Status Exam Patient Appearance: Appropriate Patient Orientation: Person and Situation Level of Consciousness: Awake and Appropriate Patient Behavior: Passive Mood Description: Calm Affect Description: Constricted Patient Cognition Impaired: Yes Ability to Follow Directions: Good Speech Pattern: Clear Hallucinations: None Delusions: Not Present Thought Process: Distracted and Linear Thought Content: positive for [place] and positive for Circumstantial Judgement: Fair Diagnostics Vital Signs (24Hr): Vital Signs - 24 hr 10/21/22 21:45 10/22/22 10:16 10/22/22 07:45 Temperature 98.9 F 97.8 F Pulse Rate 111 H 111 H 88 Respiratory Rate 18 Blood Pressure 126/58 L 126/58 L 113/72 Pulse Oximetry 96 96 95 Oxygen Delivery Method Room Air Room Air BMI result Body Mass Index 39.5 Labs 10/07/22 10:53 10/22/22 07:21 Labs: Laboratory Results - last 48 hr 10/20/22 10/20/22 10/20/22 16:22 20:48 20:54 Creatinine Estim Creat Clear Calc Estimated GFR POC Glucose 127 H 163 H Random Vancomycin 18.5 10/21/22 10/21/22 10/21/22 07:49 08:01 11:28 Creatinine 0.85 Estim Creat Clear Calc 131.2 Estimated GFR > 60 POC Glucose 209 H 192 H Random Vancomycin 10/21/22 10/22/22 10/22/22 11:31 07:21 11:32 Creatinine 0.82 Estim Creat Clear Calc 139.1 Estimated GFR > 60 POC Glucose Random Vancomycin 12.1 L 13.9 L Imaging Radiology Impressions: ITS Impressions Hand/Wrist X-Ray 10/07/22 22:07 IMPRESSION: Old healed fracture of the distal shaft of the fifth metacarpal bone and question old or healing fracture of the neck of the fourth metacarpal bone. No acute fracture. Foot X-Ray 10/11/22 12:56 IMPRESSION: RIGHT FOOT: Soft tissue ulceration at the distal aspect of the right great toe. Erosion/lucency through the distal tuft of the 1st distal phalanx, likely indicating osteomyelitis. LEFT FOOT: 1. Soft tissue ulceration along the distal/medial aspect of the great toe with circumferential soft tissue swelling. No radiopaque foreign body. No adjacent cortical erosion or periosteal reaction to suggest acute osteomyelitis, however, this may be occult on plain radiographs. 2. Severe osteoarthritis with prominent bony remodeling throughout the tibiotalar and midfoot joints, similar when compared to the prior radiographs from 2016. Foot X-Ray 10/11/22 12:56 IMPRESSION: RIGHT FOOT: Soft tissue ulceration at the distal aspect of the right great toe. Erosion/lucency through the distal tuft of the 1st distal phalanx, likely indicating osteomyelitis. LEFT FOOT: 1. Soft tissue ulceration along the distal/medial aspect of the great toe with circumferential soft tissue swelling. No radiopaque foreign body. No adjacent cortical erosion or periosteal reaction to suggest acute osteomyelitis, however, this may be occult on plain radiographs. 2. Severe osteoarthritis with prominent bony remodeling throughout the tibiotalar and midfoot joints, similar when compared to the prior radiographs from 2016. Duplex Scan Lower Extremity Artery 10/13/22 19:25 IMPRESSION: 1. No hemodynamically significant stenosis in the right lower extremity. 2. Incidental note is made of cardiac arrhythmia. Chest X-Ray 10/15/22 13:39 IMPRESSION: Right upper extremity PICC line tip projects over SVC. Medications Medications Current Medications Acetaminophen (Acetaminophen 325 Mg Tablet) 650 mg PO Q6H PRN PRN Reason: Headache/Pain Mild Scale (1-3) Last Admin: 10/09/22 23:10 Dose: 650 mg Al Hydroxide/Mg Hydroxide (Magnesium Hydrox/Alum Hydrox 30 Ml Oral.Susp) 30 ml PO Q6H PRN PRN Reason: Heartburn/Nausea Albuterol Sulfate (Albuterol Sulfate 90 Mcg 8 Gm Inhaler) 2 puff INHALE Q4H PRN PRN Reason: Shortness Of Breath Last Admin: 10/20/22 21:09 Dose: 2 puff Apixaban (Apixaban 5 Mg Tablet) 5 mg PO BID [facility] Last Admin: 10/22/22 11:29 Dose: 5 mg Aripiprazole (Aripiprazole 5 Mg Tablet) 7.5 mg PO DAILY [facility] Last Admin: 10/22/22 11:29 Dose: 7.5 mg Atorvastatin Calcium (Atorvastatin Calcium 80 Mg Tablet) 80 mg PO DAILY [facility] Last Admin: 10/22/22 11:29 Dose: 80 mg Diltiazem HCl (Diltiazem Hcl Cd 120 Mg Cap.Er.Deg) 120 mg PO DAILY@11 [facility]; Protocol Last Admin: 10/22/22 12:03 Dose: 120 mg Duloxetine HCl (Duloxetine Hcl 60 Mg Capsule.) 60 mg PO BID [facility] Last Admin: 10/22/22 11:30 Dose: 60 mg Ferrous Sulfate (Ferrous Sulfate 324 Mg Tablet.) 324 mg PO MoWeFr@0900 [facility] Last Admin: 10/22/22 11:32 Dose: Not Given Gabapentin (Gabapentin 400 Mg Capsule) 400 mg PO QID [facility] Last Admin: 10/22/22 14:07 Dose: 400 mg Glucose (Glucose Gel 15 Gm Gel..Gram.) 15 gm PO Q15M PRN; Protocol PRN Reason: per Hypoglycemia Standing Ord. Hydroxyzine HCl (Hydroxyzine Hcl 25 Mg Tablet) 25 mg PO TID PRN PRN Reason: Anxiety Last Admin: 10/19/22 09:04 Dose: 25 mg Dextrose (D10) 250 mls @ 750 mls/hr IV Q15M PRN; Protocol PRN Reason: per Hypoglycemia Standing Ord. Vancomycin HCl 1,000 mg/ (Sodium Chloride) 270 mls @ 270 mls/hr IV Q12H [facility] Last Admin: 10/22/22 13:44 Dose: 270 mls/hr Ibuprofen (Ibuprofen 600 Mg Tablet) 600 mg PO Q6H PRN PRN Reason: Pain, Moderate(Pain Scale 4-6) Insulin Human Lispro (Insulin Lispro 100 Unit/Ml 3 Ml Vial) 0 unit SUBCUT QIDACHS [facility]; Protocol Last Admin: 10/22/22 12:06 Dose: 2 unit Lidocaine (Lidocaine 4 % Patch Adh..Patch) 1 patch TRANSDERMA DAILY [facility] Last Admin: 10/22/22 11:32 Dose: Not Given Lorazepam (Lorazepam 1 Mg Tablet) 2 mg PO TID PRN PRN Reason: Anxiety Last Admin: 10/22/22 12:04 Dose: 2 mg Magnesium Hydroxide (Milk Of Magnesia 30 Ml Oral.Susp) 30 ml PO DAILY PRN PRN Reason: Constipation Last Admin: 10/08/22 15:52 Dose: 30 ml Melatonin (Melatonin 3 Mg Tablet) 3 mg PO BEDTIME PRN PRN Reason: Insomnia Last Admin: 10/09/22 23:11 Dose: 3 mg Metformin HCl (Metformin Hcl 1,000 Mg Tablet) 1,000 mg PO DAILY [facility] Last Admin: 10/22/22 11:30 Dose: 1,000 mg Metoprolol Succinate (Metoprolol Succinate Er 25 Mg Tab.Er.24h) 75 mg PO BID [facility]; Protocol Last Admin: 10/22/22 11:30 Dose: 75 mg Nitroglycerin (Nitroglycerin 0.4 Mg Tab.Subl) 0.4 mg SUBLINGUAL Q5M PRN PRN Reason: Chest Pain Nystatin (Nystatin Powder 15 Gm Bottle) 1 appl TOPICAL BID [facility]; Protocol Last Admin: 10/22/22 11:31 Dose: Not Given Omeprazole (Omeprazole 20 Mg Capsule.Dr) 20 mg PO DAILY@0630 [facility] Last Admin: 10/22/22 06:23 Dose: 20 mg Ondansetron HCl (Ondansetron Odt 4 Mg Tab.Rapdis) 4 mg TRANSLINGU Q8H PRN PRN Reason: Nausea Phenytoin Sodium (Phenytoin Sodium Extended 100 Mg Capsule) 200 mg PO DAILY [facility] Last Admin: 10/22/22 11:29 Dose: 200 mg Phenytoin Sodium (Phenytoin Sodium Extended 100 Mg Capsule) 400 mg PO BEDTIME [facility] Last Admin: 10/21/22 21:44 Dose: 400 mg Quetiapine Fumarate (Quetiapine Fumarate 100 Mg Tablet) 100 mg PO BEDTIME PRN PRN Reason: Insomnia Last Admin: 10/10/22 22:28 Dose: 100 mg Quetiapine Fumarate (Quetiapine Fumarate 200 Mg Tablet) 200 mg PO BEDTIME [facility] Last Admin: 10/21/22 21:46 Dose: 200 mg Senna (Sennosides 8.6 Mg Tablet) 8.6 mg PO DAILY [facility] Last Admin: 10/22/22 11:31 Dose: 8.6 mg Simethicone (Simethicone 80 Mg Tab.Chew) 80 mg PO TID PRN PRN Reason: Indigestion Sodium Chloride (0.9 % Sodium Chloride Flush 10 Ml Syringe) 5 ml IVFLUSH TID [facility] Last Admin: 10/22/22 11:32 Dose: 5 ml Torsemide (Torsemide 20 Mg Tablet) 40 mg PO DAILY [facility]; Protocol Last Admin: 10/22/22 11:29 Dose: 40 mg Trazodone HCl (Trazodone Hcl 50 Mg Tablet) 50 mg PO BEDTIME MRX1 PRN PRN Reason: Insomnia Trazodone HCl (Trazodone Hcl 50 Mg Tablet) 50 mg PO BEDTIME [facility] Last Admin: 10/21/22 21:46 Dose: 50 mg Allergies Allergies Allergy/AdvReac Type Severity Reaction Status Date / Time aspirin Allergy Severe OCCASIONAL Verified 04/08/22 14:18 RASH / TONGUE SWELLING, Hives, throat swellig bee pollen [BEE STINGS] Allergy Severe ANAPHYLAXIS Verified 04/08/22 14:18 Penicillins Allergy Severe ANAPHYLAXIS Verified 04/08/22 14:18 povidone-iodine [Betadine] Allergy Severe Redness of Verified 04/08/22 14:18 Skin soap [Betadine] Allergy Severe Redness of Verified 04/08/22 14:18 Skin spider venom [SPIDER BITES] Allergy Severe Hives Verified 04/08/22 14:18 amoxicillin Allergy Intermediate Hives Verified 04/08/22 14:18 clindamycin Allergy Mild RASH Verified 04/08/22 14:18 latex [Latex] Allergy Mild RASH Verified 04/08/22 14:18 shrimp Allergy Hives Verified 06/21/22 11:48 bupropion [From WELLBUTRIN] AdvReac Severe SEIZURES Verified 04/08/22 14:18 adhesive tape AdvReac Mild Rash Verified 04/14/22 15:55 Assessment & Plan Assessment & Plan (1) Atrial fibrillation with rapid ventricular response: Status: Acute Code(s): I48.91 - Unspecified atrial fibrillation Plan On checking pulse rate using his radial pulse, his rate is about 110/Min. On the recorded vital signs, some of the pulse rates are well within normal range but some of them are quite high up to 145/Min. With regard to the home regimen, listed to be on diltiazem ER 120 mg daily, metoprolol ER 70 mg daily and digoxin alternate days. Current meds however are diltiazem CD 1 20 mg daily with metoprolol at b.i.d. dosing. However, do not see digoxin. Echocardiogram from last year with LVEF of 55-60%. Normal right ventricular size and function. Mildly elevated right atrial pressure. IVC dilated. Other labs reviewed. Hemoglobin 9.7. White cell 6.2. Platelets 280. Potassium 3.5. Creatinine is 0.92. BUN is 18. High sensitivity troponins are well within normal range. Overall, atrial fibrillation with rapid rate could be from holding off on digoxin. Recommend starting it again. There is also discrepancy between what the patient is a send was reconciled. He states he is taking every day. Hence resume digoxin daily after loading dose and monitor EKGs periodically. Will follow as needed. Discussed with psychiatry as well as hospitalist service. Plan 1. Continue with Cymbalta 60 mg p.o. b.i.d. to target depression. At this moment the patient is not suicidal. 2. Continue with medical workout and treatment of osteomyelitis with IV and vancomycin. We will follow the recommendations of Medicine. 3. Waiting for placement Reason for continued inpatient stay Substantial Risk for: inability to function, rapid decompensation and med/psych decompensation Time Spent With Patient Time: Total time managing care of this patient today _20___ minutes.
[2022-10-22 16:37] LABS: Glucose, Whole Blood 189 mg/dL (60-115)
[2022-10-22 16:37] LABS: Glucose, Whole Blood 175 mg/dL (60-115)
--- NOTE | 2022-10-22 17:42 | PC.NURSE ---
THIS NURSE SPOKE TO DR. DYSON RE: PT.'S WOUNDS. HE STATED TO LEAVE THEM OPEN TO AIR UNTIL NEW WOUND CARE ORDERS HAVE BEEN PLACED.
[2022-10-22 18:00] VITALS: BP 127/65; PULSE 110; RESP 18; TEMP 37.1; O2SAT 95
[2022-10-22] MEDS: Phenytoin Sodium Extended 100 MG CAPSULE 400 MG PO (20:42)
[2022-10-22] MEDS: QUEtiapine Fumarate 200 MG TABLET PO (20:43)
[2022-10-22] MEDS: traZODone HCL 50 MG TABLET PO (20:43)
[2022-10-22 21:07] LABS: Glucose, Whole Blood 168 mg/dL (60-115)
[2022-10-22] MEDS: Ibuprofen 600 MG TABLET PO (22:08)
[2022-10-22] MEDS: Acetaminophen 325 MG TABLET 650 MG PO (22:09)
--- NOTE | 2022-10-22 22:34 | PC.RT ---
pt refused CPAP, floor states he only wore it for an hour last night
[2022-10-23] MEDS: vancomycin HCL 1,000 MG in 0.9 % Sodium Chloride 250 ML 270 MG IV ×2 (00:54→13:12)
[2022-10-23] MEDS: Omeprazole 20 MG CAPSULE.DR PO (05:29)
[2022-10-23 07:13] LABS: Creatinine Clr Calc Pharmacy 132.6; Estimated Glomerular Filt Rate > 60
[2022-10-23 08:07] LABS: Glucose, Whole Blood 194 mg/dL (60-115)
[2022-10-23 08:15] VITALS: BP 117/60; PULSE 90; RESP 16; TEMP 36.8; O2SAT 96
--- NOTE | 2022-10-23 08:44 | HE.PHANOTE ---
VANCOMYCIN ADDENDUM Renal function stable, level ordered for 10/24, predicted AUC of 495, no changes at this time. current dose 1 gram q 12 hours
[2022-10-23] MEDS: Phenytoin Sodium Extended 100 MG CAPSULE 200 MG PO (09:05)
[2022-10-23] MEDS: Torsemide 20 MG TABLET 40 MG PO (09:06)
[2022-10-23] MEDS: ARIPiprazole 5 MG TABLET 7.5 MG PO (09:06)
[2022-10-23] MEDS: DULoxetine HCl 60 MG CAPSULE.DR PO ×2 (09:07→21:33)
[2022-10-23] MEDS: Apixaban 5 MG TABLET PO ×2 (09:07→21:33)
[2022-10-23] MEDS: metFORMIN HCl 1,000 MG TABLET 1000 MG PO (09:07)
[2022-10-23] MEDS: LORazepam 1 MG TABLET 2 MG PO ×2 (09:07→21:49)
[2022-10-23] MEDS: Gabapentin 400 MG CAPSULE PO ×4 (09:07→21:33)
[2022-10-23] MEDS: Metoprolol Succinate ER 25 MG TAB.ER.24H 75 MG PO ×2 (09:07→21:34)
[2022-10-23] MEDS: Insulin Lispro 100 UNIT/ML 3 ML VIAL SUBCUT ×3 (09:08→21:42)
[2022-10-23] MEDS: Atorvastatin Calcium 80 MG TABLET PO (09:08)
[2022-10-23] MEDS: Albuterol Sulfate 90 MCG 8 GM INHALER 2 PUFF INHALE ×2 (09:24→21:49)
[2022-10-23] MEDS: 0.9 % Sodium Chloride Flush 10 ML SYRINGE 5 ML IVFLUSH ×3 (09:25→21:54)
[2022-10-23] MEDS: Nystatin Powder 15 GM BOTTLE 1 APPL TOPICAL (09:31)
[2022-10-23 11:17] LABS: Glucose, Whole Blood 180 mg/dL (60-115)
[2022-10-23 11:25] VITALS: BP 114/62; PULSE 90
[2022-10-23] MEDS: dilTIAZem HCL CD 120 MG CAP.ER.DEG PO (11:34)
--- NOTE | 2022-10-23 12:10 | HO.PSYCHPN ---
Subjective Subjective Date of Service: 10/23/22 Reason For Visit: Major depressive disorder Subjective Notes: Conditional Voluntary Healthcare Proxy: No Guardianship: Yes (Knee pain) Medical Problems Affecting Mental Status: No Interim History: Patient was seen and discussed in rounds today. Records and plans were reviewed. He continues to be wheelchair bound because he cannot stand because of right knee pain and problems. He still being treated for osteomyelitis with vancomycin seen. He is requesting pain medications and states that he has been taking oxycodone at home but when he was given it with Ativan he had to be given Narcan. I will try him on naproxen 500 mg q.12 hours p.r.n. Review of Systems Review of Systems Right knee pain and discomfort Yes all other systems are reviewed and are negative Mental Status Exam Mental Status Exam Patient Appearance: Appropriate Patient Orientation: Person and Situation Level of Consciousness: Awake and Appropriate Patient Behavior: Passive Mood Description: Calm Affect Description: Constricted Patient Cognition Impaired: Yes Ability to Follow Directions: Good Speech Pattern: Clear Hallucinations: None Delusions: Not Present Thought Process: Distracted and Linear Thought Content: positive for [place] and positive for Circumstantial Judgement: Fair Diagnostics Vital Signs (24Hr): Vital Signs - 24 hr 10/22/22 18:00 10/23/22 08:15 10/23/22 11:25 Temperature 98.8 F 98.2 F Pulse Rate 110 H 90 90 Respiratory Rate 18 16 Blood Pressure 127/65 117/60 114/62 Pulse Oximetry 95 96 Oxygen Delivery Method Room Air Room Air BMI result Body Mass Index 39.5 Labs 10/07/22 10:53 10/23/22 06:44 Labs: Laboratory Results - last 48 hr 10/21/22 10/22/22 10/22/22 11:31 07:21 10:56 Creatinine 0.82 Estim Creat Clear Calc 139.1 Estimated GFR > 60 POC Glucose 189 H Random Vancomycin 12.1 L 10/22/22 10/22/22 10/22/22 11:32 16:30 20:58 Creatinine Estim Creat Clear Calc Estimated GFR POC Glucose 175 H 168 H Random Vancomycin 13.9 L 10/23/22 10/23/22 10/23/22 06:44 07:54 11:13 Creatinine 0.86 Estim Creat Clear Calc 132.6 Estimated GFR > 60 POC Glucose 194 H 180 H Random Vancomycin Imaging Radiology Impressions: ITS Impressions Hand/Wrist X-Ray 10/07/22 22:07 IMPRESSION: Old healed fracture of the distal shaft of the fifth metacarpal bone and question old or healing fracture of the neck of the fourth metacarpal bone. No acute fracture. Foot X-Ray 10/11/22 12:56 IMPRESSION: RIGHT FOOT: Soft tissue ulceration at the distal aspect of the right great toe. Erosion/lucency through the distal tuft of the 1st distal phalanx, likely indicating osteomyelitis. LEFT FOOT: 1. Soft tissue ulceration along the distal/medial aspect of the great toe with circumferential soft tissue swelling. No radiopaque foreign body. No adjacent cortical erosion or periosteal reaction to suggest acute osteomyelitis, however, this may be occult on plain radiographs. 2. Severe osteoarthritis with prominent bony remodeling throughout the tibiotalar and midfoot joints, similar when compared to the prior radiographs from 2016. Foot X-Ray 10/11/22 12:56 IMPRESSION: RIGHT FOOT: Soft tissue ulceration at the distal aspect of the right great toe. Erosion/lucency through the distal tuft of the 1st distal phalanx, likely indicating osteomyelitis. LEFT FOOT: 1. Soft tissue ulceration along the distal/medial aspect of the great toe with circumferential soft tissue swelling. No radiopaque foreign body. No adjacent cortical erosion or periosteal reaction to suggest acute osteomyelitis, however, this may be occult on plain radiographs. 2. Severe osteoarthritis with prominent bony remodeling throughout the tibiotalar and midfoot joints, similar when compared to the prior radiographs from 2016. Duplex Scan Lower Extremity Artery 10/13/22 19:25 IMPRESSION: 1. No hemodynamically significant stenosis in the right lower extremity. 2. Incidental note is made of cardiac arrhythmia. Chest X-Ray 10/15/22 13:39 IMPRESSION: Right upper extremity PICC line tip projects over SVC. Medications Medications Current Medications Acetaminophen (Acetaminophen 325 Mg Tablet) 650 mg PO Q6H PRN PRN Reason: Headache/Pain Mild Scale (1-3) Last Admin: 10/22/22 22:09 Dose: 650 mg Al Hydroxide/Mg Hydroxide (Magnesium Hydrox/Alum Hydrox 30 Ml Oral.Susp) 30 ml PO Q6H PRN PRN Reason: Heartburn/Nausea Albuterol Sulfate (Albuterol Sulfate 90 Mcg 8 Gm Inhaler) 2 puff INHALE Q4H PRN PRN Reason: Shortness Of Breath Last Admin: 10/23/22 09:24 Dose: 2 puff Apixaban (Apixaban 5 Mg Tablet) 5 mg PO BID [facility] Last Admin: 10/23/22 09:07 Dose: 5 mg Aripiprazole (Aripiprazole 5 Mg Tablet) 7.5 mg PO DAILY [facility] Last Admin: 10/23/22 09:06 Dose: 7.5 mg Atorvastatin Calcium (Atorvastatin Calcium 80 Mg Tablet) 80 mg PO DAILY [facility] Last Admin: 10/23/22 09:08 Dose: 80 mg Diltiazem HCl (Diltiazem Hcl Cd 120 Mg Cap.Er.Deg) 120 mg PO DAILY@11 [facility]; Protocol Last Admin: 10/23/22 11:34 Dose: 120 mg Duloxetine HCl (Duloxetine Hcl 60 Mg Capsule.Dr) 60 mg PO BID [facility] Last Admin: 10/23/22 09:07 Dose: 60 mg Ferrous Sulfate (Ferrous Sulfate 324 Mg Tablet.) 324 mg PO MoWeFr@0900 [facility] Last Admin: 10/22/22 11:32 Dose: Not Given Gabapentin (Gabapentin 400 Mg Capsule) 400 mg PO QID [facility] Last Admin: 10/23/22 09:07 Dose: 400 mg Glucose (Glucose Gel 15 Gm Gel..Gram.) 15 gm PO Q15M PRN; Protocol PRN Reason: per Hypoglycemia Standing Ord. Hydroxyzine HCl (Hydroxyzine Hcl 25 Mg Tablet) 25 mg PO TID PRN PRN Reason: Anxiety Last Admin: 10/19/22 09:04 Dose: 25 mg Dextrose (D10) 250 mls @ 750 mls/hr IV Q15M PRN; Protocol PRN Reason: per Hypoglycemia Standing Ord. Vancomycin HCl 1,000 mg/ (Sodium Chloride) 270 mls @ 270 mls/hr IV Q12H [facility] Last Infusion: 10/23/22 02:55 Dose: Infused Ibuprofen (Ibuprofen 600 Mg Tablet) 600 mg PO Q6H PRN PRN Reason: Pain, Moderate(Pain Scale 4-6) Last Admin: 10/22/22 22:08 Dose: 600 mg Insulin Human Lispro (Insulin Lispro 100 Unit/Ml 3 Ml Vial) 0 unit SUBCUT QIDACHS [facility]; Protocol Last Admin: 10/23/22 11:33 Dose: 2 unit Lidocaine (Lidocaine 4 % Patch Adh..Patch) 1 patch TRANSDERMA DAILY [facility] Last Admin: 10/23/22 09:15 Dose: Not Given Lorazepam (Lorazepam 1 Mg Tablet) 2 mg PO TID PRN PRN Reason: Anxiety Last Admin: 10/23/22 09:07 Dose: 2 mg Magnesium Hydroxide (Milk Of Magnesia 30 Ml Oral.Susp) 30 ml PO DAILY PRN PRN Reason: Constipation Last Admin: 10/08/22 15:52 Dose: 30 ml Melatonin (Melatonin 3 Mg Tablet) 3 mg PO BEDTIME PRN PRN Reason: Insomnia Last Admin: 10/09/22 23:11 Dose: 3 mg Metformin HCl (Metformin Hcl 1,000 Mg Tablet) 1,000 mg PO DAILY [facility] Last Admin: 10/23/22 09:07 Dose: 1,000 mg Metoprolol Succinate (Metoprolol Succinate Er 25 Mg Tab.Er.24h) 75 mg PO BID [facility]; Protocol Last Admin: 10/23/22 09:07 Dose: 75 mg Nitroglycerin (Nitroglycerin 0.4 Mg Tab.Subl) 0.4 mg SUBLINGUAL Q5M PRN PRN Reason: Chest Pain Nystatin (Nystatin Powder 15 Gm Bottle) 1 appl TOPICAL BID [facility]; Protocol Last Admin: 10/23/22 09:31 Dose: 1 appl Omeprazole (Omeprazole 20 Mg Capsule.Dr) 20 mg PO DAILY@0630 [facility] Last Admin: 10/23/22 05:29 Dose: 20 mg Ondansetron HCl (Ondansetron Odt 4 Mg Tab.Rapdis) 4 mg TRANSLINGU Q8H PRN PRN Reason: Nausea Phenytoin Sodium (Phenytoin Sodium Extended 100 Mg Capsule) 200 mg PO DAILY [facility] Last Admin: 10/23/22 09:05 Dose: 200 mg Phenytoin Sodium (Phenytoin Sodium Extended 100 Mg Capsule) 400 mg PO BEDTIME [facility] Last Admin: 10/22/22 20:42 Dose: 400 mg Quetiapine Fumarate (Quetiapine Fumarate 100 Mg Tablet) 100 mg PO BEDTIME PRN PRN Reason: Insomnia Last Admin: 10/10/22 22:28 Dose: 100 mg Quetiapine Fumarate (Quetiapine Fumarate 200 Mg Tablet) 200 mg PO BEDTIME [facility] Last Admin: 10/22/22 20:43 Dose: 200 mg Senna (Sennosides 8.6 Mg Tablet) 8.6 mg PO DAILY [facility] Last Admin: 10/23/22 09:16 Dose: Not Given Simethicone (Simethicone 80 Mg Tab.Chew) 80 mg PO TID PRN PRN Reason: Indigestion Sodium Chloride (0.9 % Sodium Chloride Flush 10 Ml Syringe) 5 ml IVFLUSH TID [facility] Last Admin: 10/23/22 09:25 Dose: 5 ml Torsemide (Torsemide 20 Mg Tablet) 40 mg PO DAILY [facility]; Protocol Last Admin: 10/23/22 09:06 Dose: 40 mg Trazodone HCl (Trazodone Hcl 50 Mg Tablet) 50 mg PO BEDTIME MRX1 PRN PRN Reason: Insomnia Trazodone HCl (Trazodone Hcl 50 Mg Tablet) 50 mg PO BEDTIME [facility] Last Admin: 10/22/22 20:43 Dose: 50 mg Allergies Allergies Allergy/AdvReac Type Severity Reaction Status Date / Time aspirin Allergy Severe OCCASIONAL Verified 04/08/22 14:18 RASH / TONGUE SWELLING, Hives, throat swellig bee pollen [BEE STINGS] Allergy Severe ANAPHYLAXIS Verified 04/08/22 14:18 Penicillins Allergy Severe ANAPHYLAXIS Verified 04/08/22 14:18 povidone-iodine [Betadine] Allergy Severe Redness of Verified 04/08/22 14:18 Skin soap [Betadine] Allergy Severe Redness of Verified 04/08/22 14:18 Skin spider venom [SPIDER BITES] Allergy Severe Hives Verified 04/08/22 14:18 amoxicillin Allergy Intermediate Hives Verified 04/08/22 14:18 clindamycin Allergy Mild RASH Verified 04/08/22 14:18 latex [Latex] Allergy Mild RASH Verified 04/08/22 14:18 shrimp Allergy Hives Verified 06/21/22 11:48 bupropion [From WELLBUTRIN] AdvReac Severe SEIZURES Verified 04/08/22 14:18 adhesive tape AdvReac Mild Rash Verified 04/14/22 15:55 Assessment & Plan Assessment & Plan (1) Atrial fibrillation with rapid ventricular response: Status: Acute Code(s): I48.91 - Unspecified atrial fibrillation Plan On checking pulse rate using his radial pulse, his rate is about 110/Min. On the recorded vital signs, some of the pulse rates are well within normal range but some of them are quite high up to 145/Min. With regard to the home regimen, listed to be on diltiazem ER 120 mg daily, metoprolol ER 70 mg daily and digoxin alternate days. Current meds however are diltiazem CD 1 20 mg daily with metoprolol at b.i.d. dosing. However, do not see digoxin. Echocardiogram from last year with LVEF of 55-60%. Normal right ventricular size and function. Mildly elevated right atrial pressure. IVC dilated. Other labs reviewed. Hemoglobin 9.7. White cell 6.2. Platelets 280. Potassium 3.5. Creatinine is 0.92. BUN is 18. High sensitivity troponins are well within normal range. Overall, atrial fibrillation with rapid rate could be from holding off on digoxin. Recommend starting it again. There is also discrepancy between what the patient is a send was reconciled. He states he is taking every day. Hence resume digoxin daily after loading dose and monitor EKGs periodically. Will follow as needed. Discussed with psychiatry as well as hospitalist service. Plan 1. Continue with Cymbalta 60 mg p.o. b.i.d. to target depression. At this moment the patient is not suicidal. 2. Continue with medical workout and treatment of osteomyelitis with IV and vancomycin. We will follow the recommendations of Medicine. 10/23: Continue current regimen and plans. Trial of naproxen 500 mg b.i.d. p.r.n. Reason for continued inpatient stay Substantial Risk for: med/psych decompensation Time Spent With Patient Time: Total time managing care of this patient today ____ minutes.
[2022-10-23 16:59] LABS: Glucose, Whole Blood 142 mg/dL (60-115)
[2022-10-23] MEDS: Acetaminophen 325 MG TABLET 650 MG PO (17:25)
[2022-10-23 18:00] VITALS: BP 130/84; PULSE 89; RESP 18; TEMP 37; O2SAT 98
[2022-10-23 21:23] LABS: Glucose, Whole Blood 189 mg/dL (60-115)
[2022-10-23] MEDS: traZODone HCL 50 MG TABLET PO (21:33)
[2022-10-23] MEDS: QUEtiapine Fumarate 200 MG TABLET PO (21:33)
[2022-10-23] MEDS: Phenytoin Sodium Extended 100 MG CAPSULE 400 MG PO (21:35)
[2022-10-24] MEDS: vancomycin HCL 1,000 MG in 0.9 % Sodium Chloride 250 ML 270 MG IV ×2 (01:22→13:39)
[2022-10-24] MEDS: Omeprazole 20 MG CAPSULE.DR PO (06:25)
[2022-10-24 06:49] LABS: Creatinine Clr Calc Pharmacy 144.3; Estimated Glomerular Filt Rate > 60
[2022-10-24 07:44] LABS: Glucose, Whole Blood 180 mg/dL (60-115)
[2022-10-24 08:15] VITALS: BP 115/61; PULSE 96; RESP 20; TEMP 36.4; O2SAT 93
[2022-10-24] MEDS: Insulin Lispro 100 UNIT/ML 3 ML VIAL SUBCUT ×4 (08:30→21:50)
[2022-10-24] MEDS: 0.9 % Sodium Chloride Flush 10 ML SYRINGE 5 ML IVFLUSH ×3 (08:30→21:52)
[2022-10-24] MEDS: DULoxetine HCl 60 MG CAPSULE.DR PO ×2 (08:31→21:47)
[2022-10-24] MEDS: metFORMIN HCl 1,000 MG TABLET 1000 MG PO (08:33)
[2022-10-24] MEDS: Torsemide 20 MG TABLET 40 MG PO (08:33)
[2022-10-24] MEDS: Phenytoin Sodium Extended 100 MG CAPSULE 200 MG PO (08:33)
[2022-10-24] MEDS: Atorvastatin Calcium 80 MG TABLET PO (08:33)
[2022-10-24] MEDS: Gabapentin 400 MG CAPSULE PO ×4 (08:33→21:48)
[2022-10-24] MEDS: ARIPiprazole 5 MG TABLET 7.5 MG PO (08:34)
[2022-10-24] MEDS: LORazepam 1 MG TABLET 2 MG PO ×3 (08:34→22:27)
[2022-10-24] MEDS: Apixaban 5 MG TABLET PO ×2 (08:34→21:49)
[2022-10-24] MEDS: Metoprolol Succinate ER 25 MG TAB.ER.24H 75 MG PO ×2 (08:34→21:48)
[2022-10-24] MEDS: Nystatin Powder 15 GM BOTTLE 1 APPL TOPICAL (08:35)
--- NOTE | 2022-10-24 11:18 | P.PNPSI_ITS ---
Subjective Subjective Date of Service: 10/24/22 Reason For Visit: Major depressive disorder Subjective Notes: Conditional Voluntary Healthcare Proxy: No Guardianship: Yes (Knee pain) Medical Problems Affecting Mental Status: No Interim History: Patient was seen and discussed in rounds today. Records and plans were reviewed. He had a little bit of a better day yesterday and was, cooperative and compliant but he states that naproxen was not helpful but according to nursing he did not even take it. This morning he is a little more mobile and actually put himself on his bed by himself! His oxygen saturation is 98%. Sleeping adequately with some interruptions. No changes were made today Review of Systems Review of Systems Right knee pain and discomfort Yes all other systems are reviewed and are negative Mental Status Exam Mental Status Exam Patient Appearance: Appropriate Patient Orientation: Person and Situation Level of Consciousness: Awake and Appropriate Patient Behavior: Passive Mood Description: Calm Affect Description: Constricted Patient Cognition Impaired: Yes Ability to Follow Directions: Good Speech Pattern: Clear Hallucinations: None Delusions: Not Present Thought Process: Distracted and Linear Thought Content: positive for [place] and positive for Circumstantial Judgement: Fair Diagnostics Vital Signs (24Hr): Vital Signs - 24 hr 10/23/22 11:25 10/23/22 18:00 10/24/22 08:15 Temperature 98.6 F 97.6 F Pulse Rate 90 89 96 Respiratory Rate 18 20 Blood Pressure 114/62 130/84 115/61 Pulse Oximetry 98 93 Oxygen Delivery Method Room Air Room Air BMI result Body Mass Index 39.5 Labs 10/07/22 10:53 10/24/22 06:19 Labs: Laboratory Results - last 48 hr 10/22/22 10/22/22 10/22/22 10:56 11:32 16:30 Creatinine Estim Creat Clear Calc Estimated GFR POC Glucose 189 H 175 H Random Vancomycin 13.9 L 10/22/22 10/23/22 10/23/22 20:58 06:44 07:54 Creatinine 0.86 Estim Creat Clear Calc 132.6 Estimated GFR > 60 POC Glucose 168 H 194 H Random Vancomycin 10/23/22 10/23/22 10/23/22 11:13 16:25 21:19 Creatinine Estim Creat Clear Calc Estimated GFR POC Glucose 180 H 142 H 189 H Random Vancomycin 10/24/22 10/24/22 06:19 07:37 Creatinine 0.79 Estim Creat Clear Calc 144.3 Estimated GFR > 60 POC Glucose 180 H Random Vancomycin Imaging Radiology Impressions: ITS Impressions Hand/Wrist X-Ray 10/07/22 22:07 IMPRESSION: Old healed fracture of the distal shaft of the fifth metacarpal bone and question old or healing fracture of the neck of the fourth metacarpal bone. No acute fracture. Foot X-Ray 10/11/22 12:56 IMPRESSION: RIGHT FOOT: Soft tissue ulceration at the distal aspect of the right great toe. Erosion/lucency through the distal tuft of the 1st distal phalanx, likely indicating osteomyelitis. LEFT FOOT: 1. Soft tissue ulceration along the distal/medial aspect of the great toe with circumferential soft tissue swelling. No radiopaque foreign body. No adjacent cortical erosion or periosteal reaction to suggest acute osteomyelitis, however, this may be occult on plain radiographs. 2. Severe osteoarthritis with prominent bony remodeling throughout the tibiotalar and midfoot joints, similar when compared to the prior radiographs from 2016. Foot X-Ray 10/11/22 12:56 IMPRESSION: RIGHT FOOT: Soft tissue ulceration at the distal aspect of the right great toe. Erosion/lucency through the distal tuft of the 1st distal phalanx, likely indicating osteomyelitis. LEFT FOOT: 1. Soft tissue ulceration along the distal/medial aspect of the great toe with circumferential soft tissue swelling. No radiopaque foreign body. No adjacent cortical erosion or periosteal reaction to suggest acute osteomyelitis, however, this may be occult on plain radiographs. 2. Severe osteoarthritis with prominent bony remodeling throughout the tibiotalar and midfoot joints, similar when compared to the prior radiographs from 2016. Duplex Scan Lower Extremity Artery 10/13/22 19:25 IMPRESSION: 1. No hemodynamically significant stenosis in the right lower extremity. 2. Incidental note is made of cardiac arrhythmia. Chest X-Ray 10/15/22 13:39 IMPRESSION: Right upper extremity PICC line tip projects over SVC. Medications Medications Current Medications Acetaminophen (Acetaminophen 325 Mg Tablet) 650 mg PO Q6H PRN PRN Reason: Headache/Pain Mild Scale (1-3) Last Admin: 10/23/22 17:25 Dose: 650 mg Al Hydroxide/Mg Hydroxide (Magnesium Hydrox/Alum Hydrox 30 Ml Oral.Susp) 30 ml PO Q6H PRN PRN Reason: Heartburn/Nausea Albuterol Sulfate (Albuterol Sulfate 90 Mcg 8 Gm Inhaler) 2 puff INHALE Q4H PRN PRN Reason: Shortness Of Breath Last Admin: 10/23/22 21:49 Dose: 2 puff Apixaban (Apixaban 5 Mg Tablet) 5 mg PO BID [facility] Last Admin: 10/24/22 08:34 Dose: 5 mg Aripiprazole (Aripiprazole 5 Mg Tablet) 7.5 mg PO DAILY [facility] Last Admin: 10/24/22 08:34 Dose: 7.5 mg Atorvastatin Calcium (Atorvastatin Calcium 80 Mg Tablet) 80 mg PO DAILY [facility] Last Admin: 10/24/22 08:33 Dose: 80 mg Diltiazem HCl (Diltiazem Hcl Cd 120 Mg Cap.Er.Deg) 120 mg PO DAILY@11 [facility]; Protocol Last Admin: 10/23/22 11:34 Dose: 120 mg Duloxetine HCl (Duloxetine Hcl 60 Mg Capsule.) 60 mg PO BID [facility] Last Admin: 10/24/22 08:31 Dose: 60 mg Ferrous Sulfate (Ferrous Sulfate 324 Mg Tablet.) 324 mg PO MoWeFr@0900 [facility] Last Admin: 10/22/22 11:32 Dose: Not Given Gabapentin (Gabapentin 400 Mg Capsule) 400 mg PO QID [facility] Last Admin: 10/24/22 08:33 Dose: 400 mg Glucose (Glucose Gel 15 Gm Gel..Gram.) 15 gm PO Q15M PRN; Protocol PRN Reason: per Hypoglycemia Standing Ord. Hydroxyzine HCl (Hydroxyzine Hcl 25 Mg Tablet) 25 mg PO TID PRN PRN Reason: Anxiety Last Admin: 10/19/22 09:04 Dose: 25 mg Dextrose (D10) 250 mls @ 750 mls/hr IV Q15M PRN; Protocol PRN Reason: per Hypoglycemia Standing Ord. Vancomycin HCl 1,000 mg/ (Sodium Chloride) 270 mls @ 270 mls/hr IV Q12H [facility] Last Infusion: 10/24/22 02:25 Dose: Infused Ibuprofen (Ibuprofen 600 Mg Tablet) 600 mg PO Q6H PRN PRN Reason: Pain, Moderate(Pain Scale 4-6) Last Admin: 10/22/22 22:08 Dose: 600 mg Insulin Human Lispro (Insulin Lispro 100 Unit/Ml 3 Ml Vial) 0 unit SUBCUT QIDACHS [facility]; Protocol Last Admin: 10/24/22 08:30 Dose: 2 unit Lidocaine (Lidocaine 4 % Patch Adh..Patch) 1 patch TRANSDERMA DAILY [facility] Last Admin: 10/24/22 08:35 Dose: Not Given Lorazepam (Lorazepam 1 Mg Tablet) 2 mg PO TID PRN PRN Reason: Anxiety Last Admin: 10/24/22 08:34 Dose: 2 mg Magnesium Hydroxide (Milk Of Magnesia 30 Ml Oral.Susp) 30 ml PO DAILY PRN PRN Reason: Constipation Last Admin: 10/08/22 15:52 Dose: 30 ml Melatonin (Melatonin 3 Mg Tablet) 3 mg PO BEDTIME PRN PRN Reason: Insomnia Last Admin: 10/09/22 23:11 Dose: 3 mg Metformin HCl (Metformin Hcl 1,000 Mg Tablet) 1,000 mg PO DAILY [facility] Last Admin: 10/24/22 08:33 Dose: 1,000 mg Metoprolol Succinate (Metoprolol Succinate Er 25 Mg Tab.Er.24h) 75 mg PO BID [facility]; Protocol Last Admin: 10/24/22 08:34 Dose: 75 mg Naproxen (Naproxen 500 Mg Tablet) 500 mg PO BID PRN PRN Reason: Knee pain Nitroglycerin (Nitroglycerin 0.4 Mg Tab.Subl) 0.4 mg SUBLINGUAL Q5M PRN PRN Reason: Chest Pain Nystatin (Nystatin Powder 15 Gm Bottle) 1 appl TOPICAL BID [facility]; Protocol Last Admin: 10/24/22 08:35 Dose: 1 appl Omeprazole (Omeprazole 20 Mg Capsule.Dr) 20 mg PO DAILY@0630 [facility] Last Admin: 10/24/22 06:25 Dose: 20 mg Ondansetron HCl (Ondansetron Odt 4 Mg Tab.Rapdis) 4 mg TRANSLINGU Q8H PRN PRN Reason: Nausea Phenytoin Sodium (Phenytoin Sodium Extended 100 Mg Capsule) 200 mg PO DAILY [facility] Last Admin: 10/24/22 08:33 Dose: 200 mg Phenytoin Sodium (Phenytoin Sodium Extended 100 Mg Capsule) 400 mg PO BEDTIME [facility] Last Admin: 10/23/22 21:35 Dose: 400 mg Quetiapine Fumarate (Quetiapine Fumarate 100 Mg Tablet) 100 mg PO BEDTIME PRN PRN Reason: Insomnia Last Admin: 10/10/22 22:28 Dose: 100 mg Quetiapine Fumarate (Quetiapine Fumarate 200 Mg Tablet) 200 mg PO BEDTIME [facility] Last Admin: 10/23/22 21:33 Dose: 200 mg Senna (Sennosides 8.6 Mg Tablet) 8.6 mg PO DAILY [facility] Last Admin: 10/24/22 08:36 Dose: Not Given Simethicone (Simethicone 80 Mg Tab.Chew) 80 mg PO TID PRN PRN Reason: Indigestion Sodium Chloride (0.9 % Sodium Chloride Flush 10 Ml Syringe) 5 ml IVFLUSH TID [facility] Last Admin: 10/24/22 08:30 Dose: 5 ml Torsemide (Torsemide 20 Mg Tablet) 40 mg PO DAILY [facility]; Protocol Last Admin: 10/24/22 08:33 Dose: 40 mg Trazodone HCl (Trazodone Hcl 50 Mg Tablet) 50 mg PO BEDTIME MRX1 PRN PRN Reason: Insomnia Trazodone HCl (Trazodone Hcl 50 Mg Tablet) 50 mg PO BEDTIME [facility] Last Admin: 10/23/22 21:33 Dose: 50 mg Allergies Allergies Allergy/AdvReac Type Severity Reaction Status Date / Time aspirin Allergy Severe OCCASIONAL Verified 04/08/22 14:18 RASH / TONGUE SWELLING, Hives, throat swellig bee pollen [BEE STINGS] Allergy Severe ANAPHYLAXIS Verified 04/08/22 14:18 Penicillins Allergy Severe ANAPHYLAXIS Verified 04/08/22 14:18 povidone-iodine [Betadine] Allergy Severe Redness of Verified 04/08/22 14:18 Skin soap [Betadine] Allergy Severe Redness of Verified 04/08/22 14:18 Skin spider venom [SPIDER BITES] Allergy Severe Hives Verified 04/08/22 14:18 amoxicillin Allergy Intermediate Hives Verified 04/08/22 14:18 clindamycin Allergy Mild RASH Verified 04/08/22 14:18 latex [Latex] Allergy Mild RASH Verified 04/08/22 14:18 shrimp Allergy Hives Verified 06/21/22 11:48 bupropion [From WELLBUTRIN] AdvReac Severe SEIZURES Verified 04/08/22 14:18 adhesive tape AdvReac Mild Rash Verified 04/14/22 15:55 Assessment & Plan Assessment & Plan (1) Atrial fibrillation with rapid ventricular response: Status: Acute Code(s): I48.91 - Unspecified atrial fibrillation Plan On checking pulse rate using his radial pulse, his rate is about 110/Min. On the recorded vital signs, some of the pulse rates are well within normal range but some of them are quite high up to 145/Min. With regard to the home regimen, listed to be on diltiazem ER 120 mg daily, metoprolol ER 70 mg daily and digoxin alternate days. Current meds however are diltiazem CD 1 20 mg daily with metoprolol at b.i.d. dosing. However, do not see digoxin. Echocardiogram from last year with LVEF of 55-60%. Normal right ventricular size and function. Mildly elevated right atrial pressure. IVC dilated. Other labs reviewed. Hemoglobin 9.7. White cell 6.2. Platelets 280. Potassium 3.5. Creatinine is 0.92. BUN is 18. High sensitivity troponins are well within normal range. Overall, atrial fibrillation with rapid rate could be from holding off on digoxin. Recommend starting it again. There is also discrepancy between what the patient is a send was reconciled. He states he is taking every day. Hence resume digoxin daily after loading dose and monitor EKGs periodically. Will follow as needed. Discussed with psychiatry as well as hospitalist service. Plan 1. Continue with Cymbalta 60 mg p.o. b.i.d. to target depression. At this moment the patient is not suicidal. 2. Continue with medical workout and treatment of osteomyelitis with IV and vancomycin. We will follow the recommendations of Medicine. 10/23: Continue current regimen and plans. Trial of naproxen 500 mg b.i.d. p.r.n. 10/24: Continue current regimen and plans Reason for continued inpatient stay Substantial Risk for: med/psych decompensation Time Spent With Patient Time: Total time managing care of this patient today ____ minutes.
[2022-10-24 11:30] LABS: Glucose, Whole Blood 163 mg/dL (60-115)
[2022-10-24 11:32] LABS: Vancomycin Random 17.7 mcg/mL (15-20)
--- NOTE | 2022-10-24 11:40 | HE.PHANOTE ---
Vancomycin Dosing Level jumped from 13.9 to 17.7. Will continue current regimen and get another trough in 24 hours. Next level 10/25 @ 1100. Diane Paredes, RandyD
[2022-10-24 11:55] VITALS: BP 118/77; PULSE 95
[2022-10-24] MEDS: dilTIAZem HCL CD 120 MG CAP.ER.DEG PO (12:01)
[2022-10-24 14:57] VITALS: BMI 40.0
[2022-10-24 16:31] LABS: Glucose, Whole Blood 156 mg/dL (60-115)
[2022-10-24 18:00] VITALS: BP 119/67; PULSE 130; RESP 16; TEMP 36.4; O2SAT 96
[2022-10-24 21:34] LABS: Glucose, Whole Blood 157 mg/dL (60-115)
[2022-10-24] MEDS: traZODone HCL 50 MG TABLET PO (21:47)
[2022-10-24] MEDS: Phenytoin Sodium Extended 100 MG CAPSULE 400 MG PO (21:47)
[2022-10-24] MEDS: QUEtiapine Fumarate 200 MG TABLET PO (21:48)
[2022-10-24] MEDS: NaPROXEN 500 MG TABLET PO (22:27)
[2022-10-25] MEDS: vancomycin HCL 1,000 MG in 0.9 % Sodium Chloride 250 ML 270 MG IV (01:32)
[2022-10-25] MEDS: Acetaminophen 325 MG TABLET 650 MG PO (06:32)
[2022-10-25] MEDS: Omeprazole 20 MG CAPSULE.DR PO (06:33)
--- NOTE | 2022-10-25 06:46 | PC.NURSE ---
IV Vancomycin given per order and well tolerated.
[2022-10-25 07:39] LABS: Glucose, Whole Blood 158 mg/dL (60-115)
[2022-10-25 08:44] VITALS: BP 122/67; PULSE 91; RESP 18; TEMP 36.6; O2SAT 94
[2022-10-25] MEDS: 0.9 % Sodium Chloride Flush 10 ML SYRINGE 5 ML IVFLUSH ×2 (08:47→15:41)
[2022-10-25] MEDS: Torsemide 20 MG TABLET 40 MG PO (08:47)
[2022-10-25] MEDS: Atorvastatin Calcium 80 MG TABLET PO (08:48)
[2022-10-25] MEDS: Phenytoin Sodium Extended 100 MG CAPSULE 200 MG PO (08:48)
[2022-10-25] MEDS: Ferrous Sulfate 324 MG TABLET.DR PO (08:48)
[2022-10-25] MEDS: DULoxetine HCl 60 MG CAPSULE.DR PO ×2 (08:48→21:52)
[2022-10-25] MEDS: Sennosides 8.6 MG TABLET PO (08:49)
[2022-10-25] MEDS: metFORMIN HCl 1,000 MG TABLET 1000 MG PO (08:50)
[2022-10-25] MEDS: Gabapentin 400 MG CAPSULE PO ×4 (08:50→21:50)
[2022-10-25] MEDS: Apixaban 5 MG TABLET PO ×2 (08:50→21:49)
[2022-10-25] MEDS: Metoprolol Succinate ER 25 MG TAB.ER.24H 75 MG PO ×2 (08:50→21:50)
[2022-10-25] MEDS: ARIPiprazole 5 MG TABLET 7.5 MG PO (08:51)
[2022-10-25 08:55] LABS: Creatinine Clr Calc Pharmacy 143.5; Estimated Glomerular Filt Rate > 60
--- NOTE | 2022-10-25 09:52 | P.PNPSI_ITS ---
Subjective Subjective Date of Service: 10/25/22 Reason For Visit: Major depressive disorder Subjective Notes: Conditional Voluntary Interim History: The nursing staff reported the patient had been common compliant with medications, cooperative with care. The occupational therapist reported the patient does not want to participate in exercise or any treatment plan. The psychosocial rehabilitation counselor is looking for placement at this moment. On interview the patient denies new symptoms, waiting for placement as usual he requested opioids. Mental Status Exam Mental Status Exam Patient Appearance: Appropriate Patient Orientation: Person and Situation Level of Consciousness: Awake and Appropriate Patient Behavior: Guarded and Passive Mood Description: Withdrawn Affect Description: Constricted Patient Cognition Impaired: No Ability to Follow Directions: Good Speech Pattern: Clear Hallucinations: None Delusions: Not Present Thought Process: Distracted and Linear Thought Content: positive for [place] Judgement: Fair Diagnostics Vital Signs (24Hr): Vital Signs - 24 hr 10/24/22 11:55 10/24/22 18:00 10/25/22 08:44 Temperature 97.6 F 97.8 F Pulse Rate 95 130 H 91 Respiratory Rate 16 18 Blood Pressure 118/77 119/67 122/67 Pulse Oximetry 96 94 Oxygen Delivery Method Room Air Room Air BMI result Body Mass Index 40.0 Labs 10/07/22 10:53 10/25/22 07:54 Labs: Laboratory Results - last 48 hr 10/23/22 10/23/22 10/23/22 11:13 16:25 21:19 Creatinine Estim Creat Clear Calc Estimated GFR POC Glucose 180 H 142 H 189 H Random Vancomycin 10/24/22 10/24/22 10/24/22 06:19 07:37 11:09 Creatinine 0.79 Estim Creat Clear Calc 144.3 Estimated GFR > 60 POC Glucose 180 H Random Vancomycin 17.7 10/24/22 10/24/22 10/24/22 11:23 16:25 21:27 Creatinine Estim Creat Clear Calc Estimated GFR POC Glucose 163 H 156 H 157 H Random Vancomycin 10/25/22 10/25/22 07:34 07:54 Creatinine 0.80 Estim Creat Clear Calc 143.5 Estimated GFR > 60 POC Glucose 158 H Random Vancomycin Imaging Radiology Impressions: ITS Impressions Hand/Wrist X-Ray 10/07/22 22:07 IMPRESSION: Old healed fracture of the distal shaft of the fifth metacarpal bone and question old or healing fracture of the neck of the fourth metacarpal bone. No acute fracture. Foot X-Ray 10/11/22 12:56 IMPRESSION: RIGHT FOOT: Soft tissue ulceration at the distal aspect of the right great toe. Erosion/lucency through the distal tuft of the 1st distal phalanx, likely indicating osteomyelitis. LEFT FOOT: 1. Soft tissue ulceration along the distal/medial aspect of the great toe with circumferential soft tissue swelling. No radiopaque foreign body. No adjacent cortical erosion or periosteal reaction to suggest acute osteomyelitis, however, this may be occult on plain radiographs. 2. Severe osteoarthritis with prominent bony remodeling throughout the tibiotalar and midfoot joints, similar when compared to the prior radiographs from 2016. Foot X-Ray 10/11/22 12:56 IMPRESSION: RIGHT FOOT: Soft tissue ulceration at the distal aspect of the right great toe. Erosion/lucency through the distal tuft of the 1st distal phalanx, likely indicating osteomyelitis. LEFT FOOT: 1. Soft tissue ulceration along the distal/medial aspect of the great toe with circumferential soft tissue swelling. No radiopaque foreign body. No adjacent cortical erosion or periosteal reaction to suggest acute osteomyelitis, however, this may be occult on plain radiographs. 2. Severe osteoarthritis with prominent bony remodeling throughout the tibiotalar and midfoot joints, similar when compared to the prior radiographs from 2016. Duplex Scan Lower Extremity Artery 10/13/22 19:25 IMPRESSION: 1. No hemodynamically significant stenosis in the right lower extremity. 2. Incidental note is made of cardiac arrhythmia. Chest X-Ray 10/15/22 13:39 IMPRESSION: Right upper extremity PICC line tip projects over SVC. Medications Medications Current Medications Acetaminophen (Acetaminophen 325 Mg Tablet) 650 mg PO Q6H PRN PRN Reason: Headache/Pain Mild Scale (1-3) Last Admin: 10/25/22 06:32 Dose: 650 mg Al Hydroxide/Mg Hydroxide (Magnesium Hydrox/Alum Hydrox 30 Ml Oral.Susp) 30 ml PO Q6H PRN PRN Reason: Heartburn/Nausea Albuterol Sulfate (Albuterol Sulfate 90 Mcg 8 Gm Inhaler) 2 puff INHALE Q4H PRN PRN Reason: Shortness Of Breath Last Admin: 10/23/22 21:49 Dose: 2 puff Apixaban (Apixaban 5 Mg Tablet) 5 mg PO BID [facility] Last Admin: 10/25/22 08:50 Dose: 5 mg Aripiprazole (Aripiprazole 5 Mg Tablet) 7.5 mg PO DAILY [facility] Last Admin: 10/25/22 08:51 Dose: 7.5 mg Atorvastatin Calcium (Atorvastatin Calcium 80 Mg Tablet) 80 mg PO DAILY [facility] Last Admin: 10/25/22 08:48 Dose: 80 mg Diltiazem HCl (Diltiazem Hcl Cd 120 Mg Cap.Er.Deg) 120 mg PO DAILY@11 [facility]; Protocol Last Admin: 10/24/22 12:01 Dose: 120 mg Duloxetine HCl (Duloxetine Hcl 60 Mg Capsule.Dr) 60 mg PO BID [facility] Last Admin: 10/25/22 08:48 Dose: 60 mg Ferrous Sulfate (Ferrous Sulfate 324 Mg Tablet.Dr) 324 mg PO MoWeFr@0900 [facility] Last Admin: 10/25/22 08:48 Dose: 324 mg Gabapentin (Gabapentin 400 Mg Capsule) 400 mg PO QID [facility] Last Admin: 10/25/22 08:50 Dose: 400 mg Glucose (Glucose Gel 15 Gm Gel..Gram.) 15 gm PO Q15M PRN; Protocol PRN Reason: per Hypoglycemia Standing Ord. Hydroxyzine HCl (Hydroxyzine Hcl 25 Mg Tablet) 25 mg PO TID PRN PRN Reason: Anxiety Last Admin: 10/19/22 09:04 Dose: 25 mg Dextrose (D10) 250 mls @ 750 mls/hr IV Q15M PRN; Protocol PRN Reason: per Hypoglycemia Standing Ord. Vancomycin HCl 1,000 mg/ (Sodium Chloride) 270 mls @ 270 mls/hr IV Q12H [facility] Last Admin: 10/25/22 01:32 Dose: 270 mls/hr Ibuprofen (Ibuprofen 600 Mg Tablet) 600 mg PO Q6H PRN PRN Reason: Pain, Moderate(Pain Scale 4-6) Last Admin: 10/22/22 22:08 Dose: 600 mg Insulin Human Lispro (Insulin Lispro 100 Unit/Ml 3 Ml Vial) 0 unit SUBCUT QIDACHS [facility]; Protocol Last Admin: 10/24/22 21:50 Dose: 2 unit Lidocaine (Lidocaine 4 % Patch Adh..Patch) 1 patch TRANSDERMA DAILY [facility] Last Admin: 10/25/22 08:57 Dose: Not Given Lorazepam (Lorazepam 1 Mg Tablet) 2 mg PO TID PRN PRN Reason: Anxiety Last Admin: 10/24/22 22:27 Dose: 2 mg Magnesium Hydroxide (Milk Of Magnesia 30 Ml Oral.Susp) 30 ml PO DAILY PRN PRN Reason: Constipation Last Admin: 10/08/22 15:52 Dose: 30 ml Melatonin (Melatonin 3 Mg Tablet) 3 mg PO BEDTIME PRN PRN Reason: Insomnia Last Admin: 10/09/22 23:11 Dose: 3 mg Metformin HCl (Metformin Hcl 1,000 Mg Tablet) 1,000 mg PO DAILY [facility] Last Admin: 10/25/22 08:50 Dose: 1,000 mg Metoprolol Succinate (Metoprolol Succinate Er 25 Mg Tab.Er.24h) 75 mg PO BID [facility]; Protocol Last Admin: 10/25/22 08:50 Dose: 75 mg Naproxen (Naproxen 500 Mg Tablet) 500 mg PO BID PRN PRN Reason: Knee pain Last Admin: 10/24/22 22:27 Dose: 500 mg Nitroglycerin (Nitroglycerin 0.4 Mg Tab.Subl) 0.4 mg SUBLINGUAL Q5M PRN PRN Reason: Chest Pain Nystatin (Nystatin Powder 15 Gm Bottle) 1 appl TOPICAL BID [facility]; Protocol Last Admin: 10/25/22 08:59 Dose: Not Given Omeprazole (Omeprazole 20 Mg Capsule.Dr) 20 mg PO DAILY@0630 [facility] Last Admin: 10/25/22 06:33 Dose: 20 mg Ondansetron HCl (Ondansetron Odt 4 Mg Tab.Rapdis) 4 mg TRANSLINGU Q8H PRN PRN Reason: Nausea Phenytoin Sodium (Phenytoin Sodium Extended 100 Mg Capsule) 200 mg PO DAILY [facility] Last Admin: 10/25/22 08:48 Dose: 200 mg Phenytoin Sodium (Phenytoin Sodium Extended 100 Mg Capsule) 400 mg PO BEDTIME [facility] Last Admin: 10/24/22 21:47 Dose: 400 mg Quetiapine Fumarate (Quetiapine Fumarate 100 Mg Tablet) 100 mg PO BEDTIME PRN PRN Reason: Insomnia Last Admin: 10/10/22 22:28 Dose: 100 mg Quetiapine Fumarate (Quetiapine Fumarate 200 Mg Tablet) 200 mg PO BEDTIME [facility] Last Admin: 10/24/22 21:48 Dose: 200 mg Senna (Sennosides 8.6 Mg Tablet) 8.6 mg PO DAILY [facility] Last Admin: 10/25/22 08:49 Dose: 8.6 mg Simethicone (Simethicone 80 Mg Tab.Chew) 80 mg PO TID PRN PRN Reason: Indigestion Sodium Chloride (0.9 % Sodium Chloride Flush 10 Ml Syringe) 5 ml IVFLUSH TID [facility] Last Admin: 10/25/22 08:47 Dose: 5 ml Torsemide (Torsemide 20 Mg Tablet) 40 mg PO DAILY [facility]; Protocol Last Admin: 10/25/22 08:47 Dose: 40 mg Trazodone HCl (Trazodone Hcl 50 Mg Tablet) 50 mg PO BEDTIME MRX1 PRN PRN Reason: Insomnia Trazodone HCl (Trazodone Hcl 50 Mg Tablet) 50 mg PO BEDTIME [facility] Last Admin: 10/24/22 21:47 Dose: 50 mg Allergies Allergies Allergy/AdvReac Type Severity Reaction Status Date / Time aspirin Allergy Severe OCCASIONAL Verified 04/08/22 14:18 RASH / TONGUE SWELLING, Hives, throat swellig bee pollen [BEE STINGS] Allergy Severe ANAPHYLAXIS Verified 04/08/22 14:18 Penicillins Allergy Severe ANAPHYLAXIS Verified 04/08/22 14:18 povidone-iodine [Betadine] Allergy Severe Redness of Verified 04/08/22 14:18 Skin soap [Betadine] Allergy Severe Redness of Verified 04/08/22 14:18 Skin spider venom [SPIDER BITES] Allergy Severe Hives Verified 04/08/22 14:18 amoxicillin Allergy Intermediate Hives Verified 04/08/22 14:18 clindamycin Allergy Mild RASH Verified 04/08/22 14:18 latex [Latex] Allergy Mild RASH Verified 04/08/22 14:18 shrimp Allergy Hives Verified 06/21/22 11:48 bupropion [From WELLBUTRIN] AdvReac Severe SEIZURES Verified 04/08/22 14:18 adhesive tape AdvReac Mild Rash Verified 04/14/22 15:55 Assessment & Plan Assessment & Plan (1) Atrial fibrillation with rapid ventricular response: Status: Acute Code(s): I48.91 - Unspecified atrial fibrillation Plan On checking pulse rate using his radial pulse, his rate is about 110/Min. On the recorded vital signs, some of the pulse rates are well within normal range but some of them are quite high up to 145/Min. With regard to the home regimen, listed to be on diltiazem ER 120 mg daily, metoprolol ER 70 mg daily and digoxin alternate days. Current meds however are diltiazem CD 1 20 mg daily with metoprolol at b.i.d. dosing. However, do not see digoxin. Echocardiogram from last year with LVEF of 55-60%. Normal right ventricular size and function. Mildly elevated right atrial pressure. IVC dilated. Other labs reviewed. Hemoglobin 9.7. White cell 6.2. Platelets 280. Potassium 3.5. Creatinine is 0.92. BUN is 18. High sensitivity troponins are well within normal range. Overall, atrial fibrillation with rapid rate could be from holding off on digoxin. Recommend starting it again. There is also discrepancy between what the patient is a send was reconciled. He states he is taking every day. Hence resume digoxin daily after loading dose and monitor EKGs periodically. Will follow as needed. Discussed with psychiatry as well as hospitalist service. Plan 1. Continue with Cymbalta 60 mg p.o. b.i.d. to target depression. At this moment the patient is not suicidal. 2. Continue with medical workout and treatment of osteomyelitis with IV and vancomycin. We will follow the recommendations of Medicine. 3. Waiting for placement Reason for continued inpatient stay Substantial Risk for: inability to function, rapid decompensation and med/psych decompensation Time Spent With Patient Time: Total time managing care of this patient today _20___ minutes.
[2022-10-25] MEDS: LORazepam 1 MG TABLET 2 MG PO (11:14)
[2022-10-25] MEDS: dilTIAZem HCL CD 120 MG CAP.ER.DEG PO (11:14)
[2022-10-25 11:25] LABS: Vancomycin Trough 20.1 mcg/mL (10.0-20.0)
[2022-10-25 11:31] LABS: Glucose, Whole Blood 191 mg/dL (60-115)
--- NOTE | 2022-10-25 11:34 | HE.PHANOTE ---
Vancomycin Dosing Level 20.1 today. Will decrease dose to 750 mg Q12H. Next level is scheduled for 10/26 @ 1100. Pharmacy will continue to monitor renal function. Diane Paredes, RandyD
[2022-10-25] MEDS: Insulin Lispro 100 UNIT/ML 3 ML VIAL SUBCUT ×2 (12:56→16:43)
[2022-10-25] MEDS: vancomycin HCL 750 MG in 0.9 % Sodium Chloride 250 ML 265 MG IV (13:56)
[2022-10-25 16:34] LABS: Glucose, Whole Blood 239 mg/dL (60-115)
[2022-10-25 21:25] LABS: Glucose, Whole Blood 135 mg/dL (60-115)
[2022-10-25] MEDS: traZODone HCL 50 MG TABLET PO (21:49)
[2022-10-25] MEDS: QUEtiapine Fumarate 200 MG TABLET PO (21:51)
[2022-10-25] MEDS: Phenytoin Sodium Extended 100 MG CAPSULE 400 MG PO (21:51)
[2022-10-25] MEDS: Melatonin 3 MG TABLET PO (21:52)
[2022-10-26] MEDS: vancomycin HCL 750 MG in 0.9 % Sodium Chloride 250 ML 265 MG IV ×2 (01:37→13:58)
[2022-10-26] MEDS: 0.9 % Sodium Chloride Flush 10 ML SYRINGE 5 ML IVFLUSH ×4 (01:40→21:08)
[2022-10-26] MEDS: QUEtiapine Fumarate 100 MG TABLET PO (03:01)
[2022-10-26] MEDS: hydrOXYzine HCL 25 MG TABLET PO ×3 (03:02→16:55)
[2022-10-26] MEDS: Omeprazole 20 MG CAPSULE.DR PO (05:55)
[2022-10-26 06:00] VITALS: BP 108/74; PULSE 90; RESP 18; TEMP 36.7; O2SAT 94
[2022-10-26 08:06] LABS: Glucose, Whole Blood 163 mg/dL (60-115)
[2022-10-26 08:38] LABS: Creatinine Clr Calc Pharmacy 135.1; Estimated Glomerular Filt Rate > 60
[2022-10-26] MEDS: Lidocaine 4 % Patch ADH..PATCH 1 PATCH TRANSDERMA (09:39)
[2022-10-26] MEDS: Albuterol Sulfate 90 MCG 8 GM INHALER 2 PUFF INHALE (09:39)
[2022-10-26] MEDS: ARIPiprazole 5 MG TABLET 7.5 MG PO (09:40)
[2022-10-26] MEDS: Gabapentin 400 MG CAPSULE PO ×4 (09:40→20:08)
[2022-10-26] MEDS: Atorvastatin Calcium 80 MG TABLET PO (09:40)
[2022-10-26] MEDS: Phenytoin Sodium Extended 100 MG CAPSULE 200 MG PO (09:40)
[2022-10-26] MEDS: Apixaban 5 MG TABLET PO ×2 (09:40→20:08)
[2022-10-26] MEDS: DULoxetine HCl 60 MG CAPSULE.DR PO ×2 (09:40→20:08)
[2022-10-26] MEDS: Sennosides 8.6 MG TABLET PO (09:41)
[2022-10-26] MEDS: metFORMIN HCl 1,000 MG TABLET 1000 MG PO (09:41)
[2022-10-26] MEDS: Metoprolol Succinate ER 25 MG TAB.ER.24H 75 MG PO ×2 (09:41→20:09)
[2022-10-26] MEDS: Torsemide 20 MG TABLET 40 MG PO (09:41)
[2022-10-26] MEDS: Insulin Lispro 100 UNIT/ML 3 ML VIAL SUBCUT ×3 (09:45→16:55)
[2022-10-26 11:50] LABS: Vancomycin Random 16.9 mcg/mL (15-20)
[2022-10-26 12:05] LABS: Glucose, Whole Blood 217 mg/dL (60-115)
[2022-10-26 12:19] VITALS: BP 108/74; PULSE 76
[2022-10-26] MEDS: LORazepam 1 MG TABLET 2 MG PO ×2 (12:21→20:23)
[2022-10-26] MEDS: dilTIAZem HCL CD 120 MG CAP.ER.DEG PO (12:22)
[2022-10-26] MEDS: Acetaminophen 325 MG TABLET 650 MG PO (12:48)
[2022-10-26 13:42] VITALS: BP 108/74; PULSE 76
[2022-10-26 14:26] LABS: Glucose, Whole Blood 186 mg/dL (60-115)
--- NOTE | 2022-10-26 15:07 | HO.PSYCHPN ---
Subjective Subjective Date of Service: 10/26/22 Reason For Visit: Major depressive disorder Subjective Notes: Conditional Voluntary Interim History: The nursing staff reported the patient had been compliant with treatment no evidence of suicidal ideation. Apparently he had been no cooperative with the occupational therapist or physical therapist. The web content & social media manager reported that he had been referred to several facilities. On interview the patient denies new symptoms as usual asking for opioids Mental Status Exam Mental Status Exam Patient Appearance: Appropriate Patient Orientation: Person and Situation Level of Consciousness: Awake and Appropriate Patient Behavior: Guarded and Passive Mood Description: Withdrawn Affect Description: Constricted Patient Cognition Impaired: No Ability to Follow Directions: Good Speech Pattern: Clear and Appropriate Hallucinations: None Delusions: Not Present Thought Process: Linear Thought Content: positive for [place] Judgement: Fair Diagnostics Vital Signs (24Hr): Vital Signs - 24 hr 10/26/22 06:00 10/26/22 12:19 10/26/22 13:42 Temperature 98.0 F Pulse Rate 90 76 76 Respiratory Rate 18 Blood Pressure 108/74 108/74 108/74 Pulse Oximetry 94 Oxygen Delivery Method Room Air BMI result Body Mass Index 40.0 Labs 10/07/22 10:53 10/26/22 07:52 Labs: Laboratory Results - last 48 hr 10/24/22 10/24/22 10/25/22 16:25 21:27 07:34 Creatinine Estim Creat Clear Calc Estimated GFR POC Glucose 156 H 157 H 158 H Vancomycin Trough Random Vancomycin 10/25/22 10/25/22 10/25/22 07:54 11:00 11:26 Creatinine 0.80 Estim Creat Clear Calc 143.5 Estimated GFR > 60 POC Glucose 191 H Vancomycin Trough 20.1 H Random Vancomycin 10/25/22 10/25/22 10/26/22 16:29 20:48 07:52 Creatinine 0.85 Estim Creat Clear Calc 135.1 Estimated GFR > 60 POC Glucose 239 H 135 H Vancomycin Trough Random Vancomycin 10/26/22 10/26/22 10/26/22 07:57 11:30 12:00 Creatinine Estim Creat Clear Calc Estimated GFR POC Glucose 163 H 217 H Vancomycin Trough Random Vancomycin 16.9 10/26/22 14:22 Creatinine Estim Creat Clear Calc Estimated GFR POC Glucose 186 H Vancomycin Trough Random Vancomycin Imaging Radiology Impressions: ITS Impressions Hand/Wrist X-Ray 10/07/22 22:07 IMPRESSION: Old healed fracture of the distal shaft of the fifth metacarpal bone and question old or healing fracture of the neck of the fourth metacarpal bone. No acute fracture. Foot X-Ray 10/11/22 12:56 IMPRESSION: RIGHT FOOT: Soft tissue ulceration at the distal aspect of the right great toe. Erosion/lucency through the distal tuft of the 1st distal phalanx, likely indicating osteomyelitis. LEFT FOOT: 1. Soft tissue ulceration along the distal/medial aspect of the great toe with circumferential soft tissue swelling. No radiopaque foreign body. No adjacent cortical erosion or periosteal reaction to suggest acute osteomyelitis, however, this may be occult on plain radiographs. 2. Severe osteoarthritis with prominent bony remodeling throughout the tibiotalar and midfoot joints, similar when compared to the prior radiographs from 2016. Foot X-Ray 10/11/22 12:56 IMPRESSION: RIGHT FOOT: Soft tissue ulceration at the distal aspect of the right great toe. Erosion/lucency through the distal tuft of the 1st distal phalanx, likely indicating osteomyelitis. LEFT FOOT: 1. Soft tissue ulceration along the distal/medial aspect of the great toe with circumferential soft tissue swelling. No radiopaque foreign body. No adjacent cortical erosion or periosteal reaction to suggest acute osteomyelitis, however, this may be occult on plain radiographs. 2. Severe osteoarthritis with prominent bony remodeling throughout the tibiotalar and midfoot joints, similar when compared to the prior radiographs from 2016. Duplex Scan Lower Extremity Artery 10/13/22 19:25 IMPRESSION: 1. No hemodynamically significant stenosis in the right lower extremity. 2. Incidental note is made of cardiac arrhythmia. Chest X-Ray 10/15/22 13:39 IMPRESSION: Right upper extremity PICC line tip projects over SVC. Medications Medications Current Medications Acetaminophen (Acetaminophen 325 Mg Tablet) 650 mg PO Q6H PRN PRN Reason: Headache/Pain Mild Scale (1-3) Last Admin: 10/26/22 12:48 Dose: 650 mg Al Hydroxide/Mg Hydroxide (Magnesium Hydrox/Alum Hydrox 30 Ml Oral.Susp) 30 ml PO Q6H PRN PRN Reason: Heartburn/Nausea Albuterol Sulfate (Albuterol Sulfate 90 Mcg 8 Gm Inhaler) 2 puff INHALE Q4H PRN PRN Reason: Shortness Of Breath Last Admin: 10/26/22 09:39 Dose: 2 puff Apixaban (Apixaban 5 Mg Tablet) 5 mg PO BID [facility] Last Admin: 10/26/22 09:40 Dose: 5 mg Aripiprazole (Aripiprazole 5 Mg Tablet) 7.5 mg PO DAILY [facility] Last Admin: 10/26/22 09:40 Dose: 7.5 mg Atorvastatin Calcium (Atorvastatin Calcium 80 Mg Tablet) 80 mg PO DAILY [facility] Last Admin: 10/26/22 09:40 Dose: 80 mg Diltiazem HCl (Diltiazem Hcl Cd 120 Mg Cap.Er.Deg) 120 mg PO DAILY@11 [facility]; Protocol Last Admin: 10/26/22 12:22 Dose: 120 mg Duloxetine HCl (Duloxetine Hcl 60 Mg Capsule.) 60 mg PO BID [facility] Last Admin: 10/26/22 09:40 Dose: 60 mg Ferrous Sulfate (Ferrous Sulfate 324 Mg Tablet.) 324 mg PO MoWeFr@0900 [facility] Last Admin: 10/25/22 08:48 Dose: 324 mg Gabapentin (Gabapentin 400 Mg Capsule) 400 mg PO QID [facility] Last Admin: 10/26/22 12:21 Dose: 400 mg Glucose (Glucose Gel 15 Gm Gel..Gram.) 15 gm PO Q15M PRN; Protocol PRN Reason: per Hypoglycemia Standing Ord. Hydroxyzine HCl (Hydroxyzine Hcl 25 Mg Tablet) 25 mg PO TID PRN PRN Reason: Anxiety Last Admin: 10/26/22 09:52 Dose: 25 mg Dextrose (D10) 250 mls @ 750 mls/hr IV Q15M PRN; Protocol PRN Reason: per Hypoglycemia Standing Ord. Vancomycin HCl 750 mg/ Sodium (Chloride) 265 mls @ 265 mls/hr IV Q12H [facility] Last Infusion: 10/26/22 15:05 Dose: Infused Ibuprofen (Ibuprofen 600 Mg Tablet) 600 mg PO Q6H PRN PRN Reason: Pain, Moderate(Pain Scale 4-6) Last Admin: 10/22/22 22:08 Dose: 600 mg Insulin Human Lispro (Insulin Lispro 100 Unit/Ml 3 Ml Vial) 0 unit SUBCUT QIDACHS [facility]; Protocol Last Admin: 10/26/22 12:22 Dose: 4 unit Lidocaine (Lidocaine 4 % Patch Adh..Patch) 1 patch TRANSDERMA DAILY [facility] Last Admin: 10/26/22 09:39 Dose: 1 patch Lorazepam (Lorazepam 1 Mg Tablet) 2 mg PO TID PRN PRN Reason: Anxiety Last Admin: 10/26/22 12:21 Dose: 2 mg Magnesium Hydroxide (Milk Of Magnesia 30 Ml Oral.Susp) 30 ml PO DAILY PRN PRN Reason: Constipation Last Admin: 10/08/22 15:52 Dose: 30 ml Melatonin (Melatonin 3 Mg Tablet) 3 mg PO BEDTIME PRN PRN Reason: Insomnia Last Admin: 10/25/22 21:52 Dose: 3 mg Metformin HCl (Metformin Hcl 1,000 Mg Tablet) 1,000 mg PO DAILY [facility] Last Admin: 10/26/22 09:41 Dose: 1,000 mg Metoprolol Succinate (Metoprolol Succinate Er 25 Mg Tab.Er.24h) 75 mg PO BID [facility]; Protocol Last Admin: 10/26/22 09:41 Dose: 75 mg Naproxen (Naproxen 500 Mg Tablet) 500 mg PO BID PRN PRN Reason: Knee pain Last Admin: 10/24/22 22:27 Dose: 500 mg Nitroglycerin (Nitroglycerin 0.4 Mg Tab.Subl) 0.4 mg SUBLINGUAL Q5M PRN PRN Reason: Chest Pain Nystatin (Nystatin Powder 15 Gm Bottle) 1 appl TOPICAL BID [facility]; Protocol Last Admin: 10/26/22 09:41 Dose: Not Given Omeprazole (Omeprazole 20 Mg Capsule.Dr) 20 mg PO DAILY@0630 [facility] Last Admin: 10/26/22 05:55 Dose: 20 mg Ondansetron HCl (Ondansetron Odt 4 Mg Tab.Rapdis) 4 mg TRANSLINGU Q8H PRN PRN Reason: Nausea Phenytoin Sodium (Phenytoin Sodium Extended 100 Mg Capsule) 200 mg PO DAILY [facility] Last Admin: 10/26/22 09:40 Dose: 200 mg Phenytoin Sodium (Phenytoin Sodium Extended 100 Mg Capsule) 400 mg PO BEDTIME [facility] Last Admin: 10/25/22 21:51 Dose: 400 mg Quetiapine Fumarate (Quetiapine Fumarate 100 Mg Tablet) 100 mg PO BEDTIME PRN PRN Reason: Insomnia Last Admin: 10/26/22 03:01 Dose: 100 mg Quetiapine Fumarate (Quetiapine Fumarate 200 Mg Tablet) 200 mg PO BEDTIME [facility] Last Admin: 10/25/22 21:51 Dose: 200 mg Senna (Sennosides 8.6 Mg Tablet) 8.6 mg PO DAILY [facility] Last Admin: 10/26/22 09:41 Dose: 8.6 mg Simethicone (Simethicone 80 Mg Tab.Chew) 80 mg PO TID PRN PRN Reason: Indigestion Sodium Chloride (0.9 % Sodium Chloride Flush 10 Ml Syringe) 5 ml IVFLUSH TID [facility] Last Admin: 10/26/22 09:42 Dose: 5 ml Torsemide (Torsemide 20 Mg Tablet) 40 mg PO DAILY [facility]; Protocol Last Admin: 10/26/22 09:41 Dose: 40 mg Trazodone HCl (Trazodone Hcl 50 Mg Tablet) 50 mg PO BEDTIME MRX1 PRN PRN Reason: Insomnia Trazodone HCl (Trazodone Hcl 50 Mg Tablet) 50 mg PO BEDTIME [facility] Last Admin: 10/25/22 21:49 Dose: 50 mg Allergies Allergies Allergy/AdvReac Type Severity Reaction Status Date / Time aspirin Allergy Severe OCCASIONAL Verified 04/08/22 14:18 RASH / TONGUE SWELLING, Hives, throat swellig bee pollen [BEE STINGS] Allergy Severe ANAPHYLAXIS Verified 04/08/22 14:18 Penicillins Allergy Severe ANAPHYLAXIS Verified 04/08/22 14:18 povidone-iodine [Betadine] Allergy Severe Redness of Verified 04/08/22 14:18 Skin soap [Betadine] Allergy Severe Redness of Verified 04/08/22 14:18 Skin spider venom [SPIDER BITES] Allergy Severe Hives Verified 04/08/22 14:18 amoxicillin Allergy Intermediate Hives Verified 04/08/22 14:18 clindamycin Allergy Mild RASH Verified 04/08/22 14:18 latex [Latex] Allergy Mild RASH Verified 04/08/22 14:18 shrimp Allergy Hives Verified 06/21/22 11:48 bupropion [From WELLBUTRIN] AdvReac Severe SEIZURES Verified 04/08/22 14:18 adhesive tape AdvReac Mild Rash Verified 04/14/22 15:55 Assessment & Plan Assessment & Plan (1) Atrial fibrillation with rapid ventricular response: Status: Acute Code(s): I48.91 - Unspecified atrial fibrillation Plan On checking pulse rate using his radial pulse, his rate is about 110/Min. On the recorded vital signs, some of the pulse rates are well within normal range but some of them are quite high up to 145/Min. With regard to the home regimen, listed to be on diltiazem ER 120 mg daily, metoprolol ER 70 mg daily and digoxin alternate days. Current meds however are diltiazem CD 1 20 mg daily with metoprolol at b.i.d. dosing. However, do not see digoxin. Echocardiogram from last year with LVEF of 55-60%. Normal right ventricular size and function. Mildly elevated right atrial pressure. IVC dilated. Other labs reviewed. Hemoglobin 9.7. White cell 6.2. Platelets 280. Potassium 3.5. Creatinine is 0.92. BUN is 18. High sensitivity troponins are well within normal range. Overall, atrial fibrillation with rapid rate could be from holding off on digoxin. Recommend starting it again. There is also discrepancy between what the patient is a send was reconciled. He states he is taking every day. Hence resume digoxin daily after loading dose and monitor EKGs periodically. Will follow as needed. Discussed with psychiatry as well as hospitalist service. Plan 1. Continue with Cymbalta 60 mg p.o. b.i.d. to target depression. At this moment the patient is not suicidal. 2. Continue with medical workout and treatment of osteomyelitis with IV and vancomycin. We will follow the recommendations of Medicine. 3. Waiting for placement Reason for continued inpatient stay Substantial Risk for: inability to function, rapid decompensation and med/psych decompensation Time Spent With Patient Time: Total time managing care of this patient today __20__ minutes.
[2022-10-26 18:00] VITALS: BP 136/72; PULSE 113; RESP 18; TEMP 36.2; O2SAT 94
[2022-10-26] MEDS: traZODone HCL 50 MG TABLET PO (20:08)
[2022-10-26] MEDS: QUEtiapine Fumarate 200 MG TABLET PO (20:08)
[2022-10-26] MEDS: Phenytoin Sodium Extended 100 MG CAPSULE 400 MG PO (20:08)
[2022-10-26 20:17] LABS: Glucose, Whole Blood 124 mg/dL (60-115)
[2022-10-27] MEDS: vancomycin HCL 750 MG in 0.9 % Sodium Chloride 250 ML 265 MG IV (00:52)
[2022-10-27] MEDS: hydrOXYzine HCL 25 MG TABLET PO ×2 (02:09→13:14)
[2022-10-27] MEDS: Melatonin 3 MG TABLET PO ×2 (02:09→22:08)
[2022-10-27 06:00] VITALS: BP 110/71; PULSE 99; RESP 18; TEMP 36.2; O2SAT 94
[2022-10-27] MEDS: Omeprazole 20 MG CAPSULE.DR PO (06:16)
[2022-10-27 07:49] LABS: Glucose, Whole Blood 176 mg/dL (60-115)
[2022-10-27] MEDS: Insulin Lispro 100 UNIT/ML 3 ML VIAL SUBCUT ×2 (08:31→12:04)
[2022-10-27] MEDS: Phenytoin Sodium Extended 100 MG CAPSULE 200 MG PO (08:32)
[2022-10-27] MEDS: Metoprolol Succinate ER 25 MG TAB.ER.24H 75 MG PO ×2 (08:33→20:27)
[2022-10-27] MEDS: metFORMIN HCl 1,000 MG TABLET 1000 MG PO (08:33)
[2022-10-27] MEDS: Apixaban 5 MG TABLET PO ×2 (08:34→20:27)
[2022-10-27] MEDS: ARIPiprazole 5 MG TABLET 7.5 MG PO (08:34)
[2022-10-27] MEDS: Torsemide 20 MG TABLET 40 MG PO (08:34)
[2022-10-27] MEDS: Atorvastatin Calcium 80 MG TABLET PO (08:34)
[2022-10-27] MEDS: DULoxetine HCl 60 MG CAPSULE.DR PO ×2 (08:34→20:27)
[2022-10-27] MEDS: Gabapentin 400 MG CAPSULE PO ×4 (08:34→20:27)
[2022-10-27] MEDS: LORazepam 1 MG TABLET 2 MG PO ×2 (08:46→17:11)
[2022-10-27] MEDS: 0.9 % Sodium Chloride Flush 10 ML SYRINGE 5 ML IVFLUSH ×3 (11:31→20:31)
[2022-10-27] MEDS: dilTIAZem HCL CD 120 MG CAP.ER.DEG PO (11:33)
[2022-10-27 11:37] LABS: Creatinine Clr Calc Pharmacy 123.5; Estimated Glomerular Filt Rate > 60
--- NOTE | 2022-10-27 11:44 | HE.PHANOTE ---
Vancomycin Dosing Level is stable at 17 today. Will continue current regimen. SCr is trending upward. Pharmacy will continue to monitor renal function. Next level 10/28 @ 1100. Diane Paredes, RandyD
[2022-10-27 11:45] LABS: Glucose, Whole Blood 166 mg/dL (60-115)
[2022-10-27 11:52] VITALS: BP 107/63; PULSE 99; RESP 18; TEMP 36.1; O2SAT 94
--- NOTE | 2022-10-27 14:06 | MHC.CLN ---
F/U [facility]IN [facility]GR[facility]. CONFIRMED WITH NURSING VIA TIGER TEXT THAT SKIN CONCERNS ARE NOT PRESSURE INJURIES. OSTEOMYELITIS OF RIGHT GREAT TOE WITH OTHER AREAS ON RIGHT LOWER EXTREMITY. CONTINUE DIABETIC 2200 KCALS DIET. NO NEW NUTRITION INTERVENTIONS.
--- NOTE | 2022-10-27 14:47 | HO.PSYCHPN ---
Subjective Subjective Date of Service: 10/27/22 Reason For Visit: Major depressive disorder Subjective Notes: Conditional Voluntary Interim History: The nursing staff reported the patient has been pleasant cooperative with good mood. He slept 6 hours. The social media developer reported that he was referred to intermediate facility in [place], waiting for the urine. On interview denies new symptoms waiting for placement. Mental Status Exam Mental Status Exam Patient Appearance: Appropriate Patient Orientation: Person and Situation Level of Consciousness: Awake and Appropriate Patient Behavior: Guarded and Passive Mood Description: Withdrawn Affect Description: Constricted Patient Cognition Impaired: Yes Ability to Follow Directions: Fair Speech Pattern: Clear Hallucinations: None Delusions: Not Present Thought Process: Linear Thought Content: positive for [place] and positive for Circumstantial Judgement: Fair Diagnostics Vital Signs (24Hr): Vital Signs - 24 hr 10/26/22 18:00 10/27/22 06:00 10/27/22 11:52 Temperature 97.1 F 97.1 F 97.0 F Pulse Rate 113 H 99 99 Respiratory Rate 18 18 18 Blood Pressure 136/72 110/71 107/63 Pulse Oximetry 94 94 94 Oxygen Delivery Method Room Air Room Air Room Air BMI result Body Mass Index 40.0 Labs 10/07/22 10:53 10/27/22 11:12 Labs: Laboratory Results - last 48 hr 10/25/22 10/25/22 10/26/22 16:29 20:48 07:52 Creatinine 0.85 Estim Creat Clear Calc 135.1 Estimated GFR > 60 POC Glucose 239 H 135 H Random Vancomycin 10/26/22 10/26/22 10/26/22 07:57 11:30 12:00 Creatinine Estim Creat Clear Calc Estimated GFR POC Glucose 163 H 217 H Random Vancomycin 16.9 10/26/22 10/26/22 10/27/22 14:22 20:01 07:35 Creatinine Estim Creat Clear Calc Estimated GFR POC Glucose 186 H 124 H 176 H Random Vancomycin 10/27/22 10/27/22 10/27/22 11:12 11:12 11:30 Creatinine 0.93 Estim Creat Clear Calc 123.5 Estimated GFR > 60 POC Glucose 166 H Random Vancomycin 17.0 Imaging Radiology Impressions: ITS Impressions Hand/Wrist X-Ray 10/07/22 22:07 IMPRESSION: Old healed fracture of the distal shaft of the fifth metacarpal bone and question old or healing fracture of the neck of the fourth metacarpal bone. No acute fracture. Foot X-Ray 10/11/22 12:56 IMPRESSION: RIGHT FOOT: Soft tissue ulceration at the distal aspect of the right great toe. Erosion/lucency through the distal tuft of the 1st distal phalanx, likely indicating osteomyelitis. LEFT FOOT: 1. Soft tissue ulceration along the distal/medial aspect of the great toe with circumferential soft tissue swelling. No radiopaque foreign body. No adjacent cortical erosion or periosteal reaction to suggest acute osteomyelitis, however, this may be occult on plain radiographs. 2. Severe osteoarthritis with prominent bony remodeling throughout the tibiotalar and midfoot joints, similar when compared to the prior radiographs from 2016. Foot X-Ray 10/11/22 12:56 IMPRESSION: RIGHT FOOT: Soft tissue ulceration at the distal aspect of the right great toe. Erosion/lucency through the distal tuft of the 1st distal phalanx, likely indicating osteomyelitis. LEFT FOOT: 1. Soft tissue ulceration along the distal/medial aspect of the great toe with circumferential soft tissue swelling. No radiopaque foreign body. No adjacent cortical erosion or periosteal reaction to suggest acute osteomyelitis, however, this may be occult on plain radiographs. 2. Severe osteoarthritis with prominent bony remodeling throughout the tibiotalar and midfoot joints, similar when compared to the prior radiographs from 2016. Duplex Scan Lower Extremity Artery 10/13/22 19:25 IMPRESSION: 1. No hemodynamically significant stenosis in the right lower extremity. 2. Incidental note is made of cardiac arrhythmia. Chest X-Ray 10/15/22 13:39 IMPRESSION: Right upper extremity PICC line tip projects over SVC. Medications Medications Current Medications Acetaminophen (Acetaminophen 325 Mg Tablet) 650 mg PO Q6H PRN PRN Reason: Headache/Pain Mild Scale (1-3) Last Admin: 10/26/22 12:48 Dose: 650 mg Al Hydroxide/Mg Hydroxide (Magnesium Hydrox/Alum Hydrox 30 Ml Oral.Susp) 30 ml PO Q6H PRN PRN Reason: Heartburn/Nausea Albuterol Sulfate (Albuterol Sulfate 90 Mcg 8 Gm Inhaler) 2 puff INHALE Q4H PRN PRN Reason: Shortness Of Breath Last Admin: 10/26/22 09:39 Dose: 2 puff Apixaban (Apixaban 5 Mg Tablet) 5 mg PO BID [facility] Last Admin: 10/27/22 08:34 Dose: 5 mg Aripiprazole (Aripiprazole 5 Mg Tablet) 7.5 mg PO DAILY [facility] Last Admin: 10/27/22 08:34 Dose: 7.5 mg Atorvastatin Calcium (Atorvastatin Calcium 80 Mg Tablet) 80 mg PO DAILY [facility] Last Admin: 10/27/22 08:34 Dose: 80 mg Diltiazem HCl (Diltiazem Hcl Cd 120 Mg Cap.Er.Deg) 120 mg PO DAILY@11 [facility]; Protocol Last Admin: 10/27/22 11:33 Dose: 120 mg Duloxetine HCl (Duloxetine Hcl 60 Mg Capsule.Dr) 60 mg PO BID [facility] Last Admin: 10/27/22 08:34 Dose: 60 mg Ferrous Sulfate (Ferrous Sulfate 324 Mg Tablet.Dr) 324 mg PO MoWeFr@0900 [facility] Last Admin: 10/27/22 08:42 Dose: Not Given Gabapentin (Gabapentin 400 Mg Capsule) 400 mg PO QID [facility] Last Admin: 10/27/22 13:14 Dose: 400 mg Glucose (Glucose Gel 15 Gm Gel..Gram.) 15 gm PO Q15M PRN; Protocol PRN Reason: per Hypoglycemia Standing Ord. Hydroxyzine HCl (Hydroxyzine Hcl 25 Mg Tablet) 25 mg PO TID PRN PRN Reason: Anxiety Last Admin: 10/27/22 13:14 Dose: 25 mg Dextrose (D10) 250 mls @ 750 mls/hr IV Q15M PRN; Protocol PRN Reason: per Hypoglycemia Standing Ord. Vancomycin HCl 750 mg/ Sodium (Chloride) 265 mls @ 265 mls/hr IV Q12H [facility] Last Infusion: 10/27/22 02:13 Dose: Infused Ibuprofen (Ibuprofen 600 Mg Tablet) 600 mg PO Q6H PRN PRN Reason: Pain, Moderate(Pain Scale 4-6) Last Admin: 10/22/22 22:08 Dose: 600 mg Insulin Human Lispro (Insulin Lispro 100 Unit/Ml 3 Ml Vial) 0 unit SUBCUT QIDACHS [facility]; Protocol Last Admin: 10/27/22 12:04 Dose: 2 unit Lidocaine (Lidocaine 4 % Patch Adh..Patch) 1 patch TRANSDERMA DAILY [facility] Last Admin: 10/27/22 08:42 Dose: Not Given Lorazepam (Lorazepam 1 Mg Tablet) 2 mg PO TID PRN PRN Reason: Anxiety Last Admin: 10/27/22 08:46 Dose: 2 mg Magnesium Hydroxide (Milk Of Magnesia 30 Ml Oral.Susp) 30 ml PO DAILY PRN PRN Reason: Constipation Last Admin: 10/08/22 15:52 Dose: 30 ml Melatonin (Melatonin 3 Mg Tablet) 3 mg PO BEDTIME PRN PRN Reason: Insomnia Last Admin: 10/27/22 02:09 Dose: 3 mg Metformin HCl (Metformin Hcl 1,000 Mg Tablet) 1,000 mg PO DAILY [facility] Last Admin: 10/27/22 08:33 Dose: 1,000 mg Metoprolol Succinate (Metoprolol Succinate Er 25 Mg Tab.Er.24h) 75 mg PO BID [facility]; Protocol Last Admin: 10/27/22 08:33 Dose: 75 mg Naproxen (Naproxen 500 Mg Tablet) 500 mg PO BID PRN PRN Reason: Knee pain Last Admin: 10/24/22 22:27 Dose: 500 mg Nitroglycerin (Nitroglycerin 0.4 Mg Tab.Subl) 0.4 mg SUBLINGUAL Q5M PRN PRN Reason: Chest Pain Nystatin (Nystatin Powder 15 Gm Bottle) 1 appl TOPICAL BID [facility]; Protocol Last Admin: 10/27/22 08:48 Dose: Not Given Omeprazole (Omeprazole 20 Mg Capsule.Dr) 20 mg PO DAILY@0630 [facility] Last Admin: 10/27/22 06:16 Dose: 20 mg Ondansetron HCl (Ondansetron Odt 4 Mg Tab.Rapdis) 4 mg TRANSLINGU Q8H PRN PRN Reason: Nausea Phenytoin Sodium (Phenytoin Sodium Extended 100 Mg Capsule) 200 mg PO DAILY [facility] Last Admin: 10/27/22 08:32 Dose: 200 mg Phenytoin Sodium (Phenytoin Sodium Extended 100 Mg Capsule) 400 mg PO BEDTIME [facility] Last Admin: 10/26/22 20:08 Dose: 400 mg Quetiapine Fumarate (Quetiapine Fumarate 100 Mg Tablet) 100 mg PO BEDTIME PRN PRN Reason: Insomnia Last Admin: 10/26/22 03:01 Dose: 100 mg Quetiapine Fumarate (Quetiapine Fumarate 200 Mg Tablet) 200 mg PO BEDTIME [facility] Last Admin: 10/26/22 20:08 Dose: 200 mg Senna (Sennosides 8.6 Mg Tablet) 8.6 mg PO DAILY [facility] Last Admin: 10/27/22 08:43 Dose: Not Given Simethicone (Simethicone 80 Mg Tab.Chew) 80 mg PO TID PRN PRN Reason: Indigestion Sodium Chloride (0.9 % Sodium Chloride Flush 10 Ml Syringe) 5 ml IVFLUSH TID [facility] Last Admin: 10/27/22 11:31 Dose: 5 ml Torsemide (Torsemide 20 Mg Tablet) 40 mg PO DAILY [facility]; Protocol Last Admin: 10/27/22 08:34 Dose: 40 mg Trazodone HCl (Trazodone Hcl 50 Mg Tablet) 50 mg PO BEDTIME MRX1 PRN PRN Reason: Insomnia Trazodone HCl (Trazodone Hcl 50 Mg Tablet) 50 mg PO BEDTIME [facility] Last Admin: 10/26/22 20:08 Dose: 50 mg Allergies Allergies Allergy/AdvReac Type Severity Reaction Status Date / Time aspirin Allergy Severe OCCASIONAL Verified 04/08/22 14:18 RASH / TONGUE SWELLING, Hives, throat swellig bee pollen [BEE STINGS] Allergy Severe ANAPHYLAXIS Verified 04/08/22 14:18 Penicillins Allergy Severe ANAPHYLAXIS Verified 04/08/22 14:18 povidone-iodine [Betadine] Allergy Severe Redness of Verified 04/08/22 14:18 Skin soap [Betadine] Allergy Severe Redness of Verified 04/08/22 14:18 Skin spider venom [SPIDER BITES] Allergy Severe Hives Verified 04/08/22 14:18 amoxicillin Allergy Intermediate Hives Verified 04/08/22 14:18 clindamycin Allergy Mild RASH Verified 04/08/22 14:18 latex [Latex] Allergy Mild RASH Verified 04/08/22 14:18 shrimp Allergy Hives Verified 06/21/22 11:48 bupropion [From WELLBUTRIN] AdvReac Severe SEIZURES Verified 04/08/22 14:18 adhesive tape AdvReac Mild Rash Verified 04/14/22 15:55 Assessment & Plan Assessment & Plan (1) Atrial fibrillation with rapid ventricular response: Status: Acute Code(s): I48.91 - Unspecified atrial fibrillation Plan On checking pulse rate using his radial pulse, his rate is about 110/Min. On the recorded vital signs, some of the pulse rates are well within normal range but some of them are quite high up to 145/Min. With regard to the home regimen, listed to be on diltiazem ER 120 mg daily, metoprolol ER 70 mg daily and digoxin alternate days. Current meds however are diltiazem CD 1 20 mg daily with metoprolol at b.i.d. dosing. However, do not see digoxin. Echocardiogram from last year with LVEF of 55-60%. Normal right ventricular size and function. Mildly elevated right atrial pressure. IVC dilated. Other labs reviewed. Hemoglobin 9.7. White cell 6.2. Platelets 280. Potassium 3.5. Creatinine is 0.92. BUN is 18. High sensitivity troponins are well within normal range. Overall, atrial fibrillation with rapid rate could be from holding off on digoxin. Recommend starting it again. There is also discrepancy between what the patient is a send was reconciled. He states he is taking every day. Hence resume digoxin daily after loading dose and monitor EKGs periodically. Will follow as needed. Discussed with psychiatry as well as hospitalist service. Plan 1. Continue with Cymbalta 60 mg p.o. b.i.d. to target depression. At this moment the patient is not suicidal. 2. Continue with medical workout and treatment of osteomyelitis with IV and vancomycin. We will follow the recommendations of Medicine. 3. Waiting for placement Reason for continued inpatient stay Substantial Risk for: inability to function, rapid decompensation and med/psych decompensation Time Spent With Patient Time: Total time managing care of this patient today _20___ minutes.
[2022-10-27] MEDS: vancomycin HCL 750 MG in 0.9 % Sodium Chloride 250 ML 250 MG IV (16:00)
[2022-10-27 16:28] LABS: Glucose, Whole Blood 140 mg/dL (60-115)
[2022-10-27 18:00] VITALS: BP 126/74; PULSE 106; RESP 20; TEMP 36.5; O2SAT 97
[2022-10-27] MEDS: QUEtiapine Fumarate 200 MG TABLET PO (20:27)
[2022-10-27] MEDS: traZODone HCL 50 MG TABLET PO ×2 (20:27→22:08)
[2022-10-27] MEDS: Phenytoin Sodium Extended 100 MG CAPSULE 400 MG PO (20:27)
--- NOTE | 2022-10-28 | ECG_ITS ---
Test Reason : cp Blood Pressure : / mmHG Vent. 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
[2022-10-28] MEDS: vancomycin HCL 750 MG in 0.9 % Sodium Chloride 250 ML 265 MG IV ×2 (04:00→16:16)
[2022-10-28] MEDS: Omeprazole 20 MG CAPSULE.DR PO (05:37)
[2022-10-28 06:00] VITALS: BP 118/64; PULSE 103; RESP 18; TEMP 36.7; O2SAT 93
[2022-10-28 07:00] VITALS: BMI 41.1
[2022-10-28 08:01] LABS: Glucose, Whole Blood 180 mg/dL (60-115)
[2022-10-28 08:38] LABS: Creatinine Clr Calc Pharmacy 133.5; Estimated Glomerular Filt Rate > 60
[2022-10-28] MEDS: Torsemide 20 MG TABLET 40 MG PO (08:58)
[2022-10-28] MEDS: 0.9 % Sodium Chloride Flush 10 ML SYRINGE 5 ML IVFLUSH ×3 (08:58→20:45)
[2022-10-28] MEDS: LORazepam 1 MG TABLET 2 MG PO ×2 (08:58→21:03)
[2022-10-28] MEDS: Phenytoin Sodium Extended 100 MG CAPSULE 200 MG PO (08:58)
[2022-10-28] MEDS: ARIPiprazole 5 MG TABLET 7.5 MG PO (08:59)
[2022-10-28] MEDS: Gabapentin 400 MG CAPSULE PO ×4 (09:00→20:47)
[2022-10-28] MEDS: DULoxetine HCl 60 MG CAPSULE.DR PO ×2 (09:01→20:47)
[2022-10-28] MEDS: metFORMIN HCl 1,000 MG TABLET 1000 MG PO (09:01)
[2022-10-28] MEDS: Metoprolol Succinate ER 25 MG TAB.ER.24H 75 MG PO ×2 (09:01→20:48)
[2022-10-28] MEDS: Apixaban 5 MG TABLET PO ×2 (09:01→20:47)
[2022-10-28] MEDS: Atorvastatin Calcium 80 MG TABLET PO (09:01)
[2022-10-28] MEDS: Sennosides 8.6 MG TABLET PO (09:02)
[2022-10-28] MEDS: Insulin Lispro 100 UNIT/ML 3 ML VIAL SUBCUT ×2 (09:34→21:04)
[2022-10-28 09:39] VITALS: BP 126/74; PULSE 106; O2SAT 97
[2022-10-28 11:49] LABS: Glucose, Whole Blood 134 mg/dL (60-115)
[2022-10-28] MEDS: dilTIAZem HCL CD 120 MG CAP.ER.DEG PO (11:51)
[2022-10-28 11:53] VITALS: BP 163/93; PULSE 111; RESP 18
[2022-10-28 14:31] LABS: Vancomycin Random 16.5 mcg/mL (15-20)
[2022-10-28 16:52] LABS: Glucose, Whole Blood 147 mg/dL (60-115)
--- NOTE | 2022-10-28 16:56 | P.PNPSI_ITS ---
Subjective Subjective Date of Service: 10/28/22 Reason For Visit: Major depressive disorder Subjective Notes: Conditional Voluntary Interim History: The patient had been common cooperative, visible in the unit. The occupational therapist reported that he does not participate in groups. The 7th grade social studies teacher reported that we have applied to several [facility] facilities and we have not are response yet. On interview the patient denies suicidal ideation, waiting for placement. Mental Status Exam Mental Status Exam Patient Appearance: Well Grooomed and Appropriate Patient Orientation: Person and Situation Level of Consciousness: Awake and Appropriate Patient Behavior: Guarded and Passive Mood Description: Withdrawn Affect Description: Constricted Patient Cognition Impaired: Yes Ability to Follow Directions: Good Speech Pattern: Clear Hallucinations: None Delusions: Not Present Thought Process: Linear Thought Content: positive for [place] and positive for Circumstantial Judgement: Fair Diagnostics Vital Signs (24Hr): Vital Signs - 24 hr 10/27/22 18:00 10/28/22 09:39 10/28/22 06:00 Temperature 97.7 F 98.0 F Pulse Rate 106 H 106 H 103 H Respiratory Rate 20 18 Blood Pressure 126/74 126/74 118/64 Pulse Oximetry 97 97 93 Oxygen Delivery Method Room Air Room Air 10/28/22 11:53 Temperature Pulse Rate 111 H Respiratory Rate 18 Blood Pressure 163/93 H Pulse Oximetry Oxygen Delivery Method BMI result Body Mass Index 40.0 Labs 10/07/22 10:53 10/28/22 08:04 Labs: Laboratory Results - last 48 hr 10/26/22 10/27/22 10/27/22 20:01 07:35 11:12 Creatinine 0.93 Estim Creat Clear Calc 123.5 Estimated GFR > 60 POC Glucose 124 H 176 H Random Vancomycin 10/27/22 10/27/22 10/27/22 11:12 11:30 16:22 Creatinine Estim Creat Clear Calc Estimated GFR POC Glucose 166 H 140 H Random Vancomycin 17.0 10/28/22 10/28/22 10/28/22 07:49 08:04 11:45 Creatinine 0.86 Estim Creat Clear Calc 133.5 Estimated GFR > 60 POC Glucose 180 H 134 H Random Vancomycin 10/28/22 10/28/22 14:07 16:43 Creatinine Estim Creat Clear Calc Estimated GFR POC Glucose 147 H Random Vancomycin 16.5 Imaging Radiology Impressions: ITS Impressions Hand/Wrist X-Ray 10/07/22 22:07 IMPRESSION: Old healed fracture of the distal shaft of the fifth metacarpal bone and question old or healing fracture of the neck of the fourth metacarpal bone. No acute fracture. Foot X-Ray 10/11/22 12:56 IMPRESSION: RIGHT FOOT: Soft tissue ulceration at the distal aspect of the right great toe. Erosion/lucency through the distal tuft of the 1st distal phalanx, likely indicating osteomyelitis. LEFT FOOT: 1. Soft tissue ulceration along the distal/medial aspect of the great toe with circumferential soft tissue swelling. No radiopaque foreign body. No adjacent cortical erosion or periosteal reaction to suggest acute osteomyelitis, however, this may be occult on plain radiographs. 2. Severe osteoarthritis with prominent bony remodeling throughout the tibiotalar and midfoot joints, similar when compared to the prior radiographs from 2016. Foot X-Ray 10/11/22 12:56 IMPRESSION: RIGHT FOOT: Soft tissue ulceration at the distal aspect of the right great toe. Erosion/lucency through the distal tuft of the 1st distal phalanx, likely indicating osteomyelitis. LEFT FOOT: 1. Soft tissue ulceration along the distal/medial aspect of the great toe with circumferential soft tissue swelling. No radiopaque foreign body. No adjacent cortical erosion or periosteal reaction to suggest acute osteomyelitis, however, this may be occult on plain radiographs. 2. Severe osteoarthritis with prominent bony remodeling throughout the tibiotalar and midfoot joints, similar when compared to the prior radiographs from 2016. Duplex Scan Lower Extremity Artery 10/13/22 19:25 IMPRESSION: 1. No hemodynamically significant stenosis in the right lower extremity. 2. Incidental note is made of cardiac arrhythmia. Chest X-Ray 10/15/22 13:39 IMPRESSION: Right upper extremity PICC line tip projects over SVC. Medications Medications Current Medications Acetaminophen (Acetaminophen 325 Mg Tablet) 650 mg PO Q6H PRN PRN Reason: Headache/Pain Mild Scale (1-3) Last Admin: 10/26/22 12:48 Dose: 650 mg Al Hydroxide/Mg Hydroxide (Magnesium Hydrox/Alum Hydrox 30 Ml Oral.Susp) 30 ml PO Q6H PRN PRN Reason: Heartburn/Nausea Albuterol Sulfate (Albuterol Sulfate 90 Mcg 8 Gm Inhaler) 2 puff INHALE Q4H PRN PRN Reason: Shortness Of Breath Last Admin: 10/26/22 09:39 Dose: 2 puff Apixaban (Apixaban 5 Mg Tablet) 5 mg PO BID [facility] Last Admin: 10/28/22 09:01 Dose: 5 mg Aripiprazole (Aripiprazole 5 Mg Tablet) 7.5 mg PO DAILY [facility] Last Admin: 10/28/22 08:59 Dose: 7.5 mg Atorvastatin Calcium (Atorvastatin Calcium 80 Mg Tablet) 80 mg PO DAILY [facility] Last Admin: 10/28/22 09:01 Dose: 80 mg Diltiazem HCl (Diltiazem Hcl Cd 120 Mg Cap.Er.Deg) 120 mg PO DAILY@11 [facility]; Protocol Last Admin: 10/28/22 11:51 Dose: 120 mg Duloxetine HCl (Duloxetine Hcl 60 Mg Capsule.Dr) 60 mg PO BID [facility] Last Admin: 10/28/22 09:01 Dose: 60 mg Ferrous Sulfate (Ferrous Sulfate 324 Mg Tablet.Dr) 324 mg PO MoWeFr@0900 [facility] Last Admin: 10/27/22 08:42 Dose: Not Given Gabapentin (Gabapentin 400 Mg Capsule) 400 mg PO QID [facility] Last Admin: 10/28/22 16:44 Dose: 400 mg Glucose (Glucose Gel 15 Gm Gel..Gram.) 15 gm PO Q15M PRN; Protocol PRN Reason: per Hypoglycemia Standing Ord. Hydroxyzine HCl (Hydroxyzine Hcl 25 Mg Tablet) 25 mg PO TID PRN PRN Reason: Anxiety Last Admin: 10/27/22 13:14 Dose: 25 mg Dextrose (D10) 250 mls @ 750 mls/hr IV Q15M PRN; Protocol PRN Reason: per Hypoglycemia Standing Ord. Vancomycin HCl 750 mg/ Sodium (Chloride) 265 mls @ 265 mls/hr IV Q12H [facility] Last Admin: 10/28/22 16:16 Dose: 265 mls/hr Ibuprofen (Ibuprofen 600 Mg Tablet) 600 mg PO Q6H PRN PRN Reason: Pain, Moderate(Pain Scale 4-6) Last Admin: 10/22/22 22:08 Dose: 600 mg Insulin Human Lispro (Insulin Lispro 100 Unit/Ml 3 Ml Vial) 0 unit SUBCUT QIDACHS [facility]; Protocol Last Admin: 10/28/22 16:45 Dose: Not Given Lidocaine (Lidocaine 4 % Patch Adh..Patch) 1 patch TRANSDERMA DAILY [facility] Last Admin: 10/28/22 09:48 Dose: Not Given Lorazepam (Lorazepam 1 Mg Tablet) 2 mg PO TID PRN PRN Reason: Anxiety Last Admin: 10/28/22 08:58 Dose: 2 mg Magnesium Hydroxide (Milk Of Magnesia 30 Ml Oral.Susp) 30 ml PO DAILY PRN PRN Reason: Constipation Last Admin: 10/08/22 15:52 Dose: 30 ml Melatonin (Melatonin 3 Mg Tablet) 3 mg PO BEDTIME PRN PRN Reason: Insomnia Last Admin: 10/27/22 22:08 Dose: 3 mg Metformin HCl (Metformin Hcl 1,000 Mg Tablet) 1,000 mg PO DAILY [facility] Last Admin: 10/28/22 09:01 Dose: 1,000 mg Metoprolol Succinate (Metoprolol Succinate Er 25 Mg Tab.Er.24h) 75 mg PO BID [facility]; Protocol Last Admin: 10/28/22 09:01 Dose: 75 mg Naproxen (Naproxen 500 Mg Tablet) 500 mg PO BID PRN PRN Reason: Knee pain Last Admin: 10/24/22 22:27 Dose: 500 mg Nitroglycerin (Nitroglycerin 0.4 Mg Tab.Subl) 0.4 mg SUBLINGUAL Q5M PRN PRN Reason: Chest Pain Nystatin (Nystatin Powder 15 Gm Bottle) 1 appl TOPICAL BID [facility]; Protocol Last Admin: 10/28/22 09:07 Dose: Not Given Omeprazole (Omeprazole 20 Mg Capsule.Dr) 20 mg PO DAILY@0630 [facility] Last Admin: 10/28/22 05:37 Dose: 20 mg Ondansetron HCl (Ondansetron Odt 4 Mg Tab.Rapdis) 4 mg TRANSLINGU Q8H PRN PRN Reason: Nausea Phenytoin Sodium (Phenytoin Sodium Extended 100 Mg Capsule) 200 mg PO DAILY [facility] Last Admin: 10/28/22 08:58 Dose: 200 mg Phenytoin Sodium (Phenytoin Sodium Extended 100 Mg Capsule) 400 mg PO BEDTIME [facility] Last Admin: 10/27/22 20:27 Dose: 400 mg Quetiapine Fumarate (Quetiapine Fumarate 100 Mg Tablet) 100 mg PO BEDTIME PRN PRN Reason: Insomnia Last Admin: 10/26/22 03:01 Dose: 100 mg Quetiapine Fumarate (Quetiapine Fumarate 200 Mg Tablet) 200 mg PO BEDTIME [facility] Last Admin: 10/27/22 20:27 Dose: 200 mg Senna (Sennosides 8.6 Mg Tablet) 8.6 mg PO DAILY [facility] Last Admin: 10/28/22 09:02 Dose: 8.6 mg Simethicone (Simethicone 80 Mg Tab.Chew) 80 mg PO TID PRN PRN Reason: Indigestion Sodium Chloride (0.9 % Sodium Chloride Flush 10 Ml Syringe) 5 ml IVFLUSH TID [facility] Last Admin: 10/28/22 16:14 Dose: 5 ml Torsemide (Torsemide 20 Mg Tablet) 40 mg PO DAILY [facility]; Protocol Last Admin: 10/28/22 08:58 Dose: 40 mg Trazodone HCl (Trazodone Hcl 50 Mg Tablet) 50 mg PO BEDTIME MRX1 PRN PRN Reason: Insomnia Trazodone HCl (Trazodone Hcl 50 Mg Tablet) 50 mg PO BEDTIME [facility] Last Admin: 10/27/22 22:08 Dose: 50 mg Allergies Allergies Allergy/AdvReac Type Severity Reaction Status Date / Time aspirin Allergy Severe OCCASIONAL Verified 04/08/22 14:18 RASH / TONGUE SWELLING, Hives, throat swellig bee pollen [BEE STINGS] Allergy Severe ANAPHYLAXIS Verified 04/08/22 14:18 Penicillins Allergy Severe ANAPHYLAXIS Verified 04/08/22 14:18 povidone-iodine [Betadine] Allergy Severe Redness of Verified 04/08/22 14:18 Skin soap [Betadine] Allergy Severe Redness of Verified 04/08/22 14:18 Skin spider venom [SPIDER BITES] Allergy Severe Hives Verified 04/08/22 14:18 amoxicillin Allergy Intermediate Hives Verified 04/08/22 14:18 clindamycin Allergy Mild RASH Verified 04/08/22 14:18 latex [Latex] Allergy Mild RASH Verified 04/08/22 14:18 shrimp Allergy Hives Verified 06/21/22 11:48 bupropion [From WELLBUTRIN] AdvReac Severe SEIZURES Verified 04/08/22 14:18 adhesive tape AdvReac Mild Rash Verified 04/14/22 15:55 Assessment & Plan Assessment & Plan (1) Atrial fibrillation with rapid ventricular response: Status: Acute Code(s): I48.91 - Unspecified atrial fibrillation Plan On checking pulse rate using his radial pulse, his rate is about 110/Min. On the recorded vital signs, some of the pulse rates are well within normal range but some of them are quite high up to 145/Min. With regard to the home regimen, listed to be on diltiazem ER 120 mg daily, metoprolol ER 70 mg daily and digoxin alternate days. Current meds however are diltiazem CD 1 20 mg daily with metoprolol at b.i.d. dosing. However, do not see digoxin. Echocardiogram from last year with LVEF of 55-60%. Normal right ventricular size and function. Mildly elevated right atrial pressure. IVC dilated. Other labs reviewed. Hemoglobin 9.7. White cell 6.2. Platelets 280. Potassium 3.5. Creatinine is 0.92. BUN is 18. High sensitivity troponins are well within normal range. Overall, atrial fibrillation with rapid rate could be from holding off on digoxin. Recommend starting it again. There is also discrepancy between what the patient is a send was reconciled. He states he is taking every day. Hence resume digoxin daily after loading dose and monitor EKGs periodically. Will follow as needed. Discussed with psychiatry as well as hospitalist service. Plan 1. Continue with Cymbalta 60 mg p.o. b.i.d. to target depression. At this [facility] the patient is not suicidal. 2. Continue with medical workout and treatment of osteomyelitis with IV and vancomycin. We will follow the recommendations of Medicine. 3. Waiting for placement Reason for continued inpatient stay Substantial Risk for: inability to function, rapid decompensation and med/psych decompensation Time Spent With Patient Time: Total time managing care of this patient today __20__ minutes.
[2022-10-28 18:00] VITALS: BP 117/65; PULSE 93; RESP 18; TEMP 36.4; O2SAT 100
[2022-10-28 20:21] LABS: Glucose, Whole Blood 184 mg/dL (60-115)
[2022-10-28] MEDS: Phenytoin Sodium Extended 100 MG CAPSULE 400 MG PO (20:47)
[2022-10-28] MEDS: QUEtiapine Fumarate 200 MG TABLET PO (20:47)
[2022-10-28] MEDS: traZODone HCL 50 MG TABLET PO ×2 (20:48→23:48)
[2022-10-28] MEDS: Acetaminophen 325 MG TABLET 650 MG PO (21:43)
[2022-10-28 22:01] VITALS: BP 127/77; PULSE 106; RESP 18; TEMP 37.2; O2SAT 95
--- NOTE | 2022-10-28 22:17 | PC.NURSE ---
Patient c/o of chest pain 01/13. Vitals 5 min apart BP134/90 P106 and BP127/77 P97 T98.9 SPO2 97%. pneumatic press hand provider notified, stat EKG ordered and pending. Will continue to monitor.
--- NOTE | 2022-10-28 22:47 | PC.NURSE ---
EKG done, university controller provider notified. New order for stat troponin level.
--- NOTE | 2022-10-28 22:54 | PM.EVENT ---
Event Note Date of Service: 10/28/22 Event Note: c/o CP; vitals WNL; ordered EKG and trops Time Spent With Patient Time: Total time managing care of this patient today ____ minutes.
[2022-10-28 23:32] LABS: Troponin-I High Sensitivity 38.4 ng/L (<3.5-35.0)
[2022-10-28] MEDS: Melatonin 3 MG TABLET PO (23:48)
[2022-10-28] MEDS: hydrOXYzine HCL 25 MG TABLET PO (23:48)
[2022-10-28 23:51] VITALS: BP 109/63; PULSE 103; RESP 18; TEMP 36.4; O2SAT 93
[2022-10-29 01:13] VITALS: BP 111/64; PULSE 87; RESP 18; TEMP 36.3; O2SAT 92
--- NOTE | 2022-10-29 01:15 | PC.NURSE ---
Stat troponin level 38.4, hospitalist consult pending. Pt 's vitals BP111/64 P87 R18 T97.4 SpO2 92% RA. In bed resting comfortably, will continue to monitor.
--- NOTE | 2022-10-29 02:15 | PM.EVENT ---
Event Note Date of Service: 10/29/22 Event Note: Was asked to evaluate the patient for chest discomfort. At the time of my evaluation, patient comfortably sleeping in bed. As per the nurse, patient was in wheelchair when he said that he was having chest discomfort, nonradiating. Did not exacerbate with movement. The nurse stated that the patient wanted morphine for it (oxycodone was d/c'ed yesterday as per nurse). Currently vitals stable. Will repeat troponin. Patient already anticoagulated with Eliquis Time Spent With Patient Time: Total time managing care of this patient today ____ minutes.
[2022-10-29 02:18] LABS: Troponin-I High Sensitivity 38.9 ng/L (<3.5-35.0)
--- NOTE | 2022-10-29 02:33 | PC.NURSE ---
dr jacobo into evaluate pt. pt somnolent and snoring. pt awakens to voice. he states earlier tonight he developed chest pain in his wheel chair in the common area. pt states that he had dizziness. pt states that he no longer has chest pain. upon termination of interview pt is sound asleep and snoring. plan- stat troponin.
[2022-10-29] MEDS: vancomycin HCL 750 MG in 0.9 % Sodium Chloride 250 ML 265 MG IV ×2 (04:23→16:08)
[2022-10-29] MEDS: Omeprazole 20 MG CAPSULE.DR PO (06:02)
[2022-10-29 07:33] LABS: Creatinine Clr Calc Pharmacy 126.6; Estimated Glomerular Filt Rate > 60
[2022-10-29 07:41] LABS: Troponin-I High Sensitivity 35.7 ng/L (<3.5-35.0)
[2022-10-29 07:46] LABS: Glucose, Whole Blood 166 mg/dL (60-115)
[2022-10-29 07:55] VITALS: BP 125/62; PULSE 91; RESP 18; TEMP 36.4; O2SAT 95
[2022-10-29] MEDS: Phenytoin Sodium Extended 100 MG CAPSULE 200 MG PO (08:20)
[2022-10-29] MEDS: DULoxetine HCl 60 MG CAPSULE.DR PO ×2 (08:21→20:50)
[2022-10-29] MEDS: Torsemide 20 MG TABLET 40 MG PO (08:21)
[2022-10-29] MEDS: metFORMIN HCl 1,000 MG TABLET 1000 MG PO (08:21)
[2022-10-29] MEDS: Gabapentin 400 MG CAPSULE PO ×4 (08:21→20:49)
[2022-10-29] MEDS: ARIPiprazole 5 MG TABLET 7.5 MG PO (08:22)
[2022-10-29] MEDS: Metoprolol Succinate ER 25 MG TAB.ER.24H 75 MG PO ×2 (08:23→20:50)
[2022-10-29] MEDS: Apixaban 5 MG TABLET PO ×2 (08:24→20:51)
[2022-10-29] MEDS: Atorvastatin Calcium 80 MG TABLET PO (08:24)
[2022-10-29] MEDS: Sennosides 8.6 MG TABLET PO (08:24)
[2022-10-29] MEDS: Insulin Lispro 100 UNIT/ML 3 ML VIAL SUBCUT ×3 (08:25→20:56)
[2022-10-29] MEDS: Ferrous Sulfate 324 MG TABLET.DR PO (08:25)
[2022-10-29] MEDS: LORazepam 1 MG TABLET 2 MG PO ×3 (08:31→20:49)
[2022-10-29] MEDS: 0.9 % Sodium Chloride Flush 10 ML SYRINGE 5 ML IVFLUSH ×3 (10:47→20:48)
[2022-10-29 11:35] LABS: Glucose, Whole Blood 153 mg/dL (60-115)
[2022-10-29 11:40] VITALS: BP 120/67; PULSE 113
[2022-10-29] MEDS: dilTIAZem HCL CD 120 MG CAP.ER.DEG PO (11:46)
--- NOTE | 2022-10-29 14:28 | HO.PSYCHPN ---
Subjective Subjective Date of Service: 10/29/22 Reason For Visit: Major depressive disorder Subjective Notes: Conditional Voluntary Interim History: The nursing staff reported the patient had complained of chest pain and he had troponins stable on the 30s. No changes in his EKG. On interview the patient denies new symptoms waiting for placement Mental Status Exam Mental Status Exam Patient Appearance: Well Grooomed and Appropriate Patient Orientation: Person, Place and Situation Level of Consciousness: Awake and Appropriate Patient Behavior: Guarded and Passive Mood Description: Withdrawn Affect Description: Constricted Patient Cognition Impaired: Yes Ability to Follow Directions: Good Speech Pattern: Clear Hallucinations: None Delusions: Not Present Thought Content: positive for Guston Judgement: Fair Diagnostics Vital Signs (24Hr): Vital Signs - 24 hr 10/28/22 18:00 10/28/22 22:01 10/28/22 23:51 Temperature 97.5 F 98.9 F 97.6 F Pulse Rate 93 106 H 103 H Respiratory Rate 18 18 18 Blood Pressure 117/65 127/77 109/63 Pulse Oximetry 100 95 93 Oxygen Delivery Method Room Air Room Air Room Air 10/29/22 01:13 10/29/22 07:55 10/29/22 11:40 Temperature 97.4 F 97.6 F Pulse Rate 87 91 113 H Respiratory Rate 18 18 Blood Pressure 111/64 125/62 120/67 Pulse Oximetry 92 95 Oxygen Delivery Method Room Air Room Air BMI result Body Mass Index 41.1 Labs 10/07/22 10:53 10/29/22 07:03 Labs: Laboratory Results - last 48 hr 10/27/22 10/28/22 10/28/22 16:22 07:49 08:04 Creatinine 0.86 Estim Creat Clear Calc 133.5 Estimated GFR > 60 POC Glucose 140 H 180 H Troponin I High Sens Random Vancomycin 10/28/22 10/28/22 10/28/22 11:45 14:07 16:43 Creatinine Estim Creat Clear Calc Estimated GFR POC Glucose 134 H 147 H Troponin I High Sens Random Vancomycin 16.5 10/28/22 10/28/22 10/29/22 20:14 22:59 01:51 Creatinine Estim Creat Clear Calc Estimated GFR POC Glucose 184 H Troponin I High Sens 38.4 H D 38.9 H Random Vancomycin 10/29/22 10/29/22 10/29/22 07:03 07:03 07:34 Creatinine 0.92 Estim Creat Clear Calc 126.6 Estimated GFR > 60 POC Glucose 166 H Troponin I High Sens 35.7 H Random Vancomycin 10/29/22 11:31 Creatinine Estim Creat Clear Calc Estimated GFR POC Glucose 153 H Troponin I High Sens Random Vancomycin Imaging Radiology Impressions: ITS Impressions Hand/Wrist X-Ray 10/07/22 22:07 IMPRESSION: Old healed fracture of the distal shaft of the fifth metacarpal bone and question old or healing fracture of the neck of the fourth metacarpal bone. No acute fracture. Foot X-Ray 10/11/22 12:56 IMPRESSION: RIGHT FOOT: Soft tissue ulceration at the distal aspect of the right great toe. Erosion/lucency through the distal tuft of the 1st distal phalanx, likely indicating osteomyelitis. LEFT FOOT: 1. Soft tissue ulceration along the distal/medial aspect of the great toe with circumferential soft tissue swelling. No radiopaque foreign body. No adjacent cortical erosion or periosteal reaction to suggest acute osteomyelitis, however, this may be occult on plain radiographs. 2. Severe osteoarthritis with prominent bony remodeling throughout the tibiotalar and midfoot joints, similar when compared to the prior radiographs from 2016. Foot X-Ray 10/11/22 12:56 IMPRESSION: RIGHT FOOT: Soft tissue ulceration at the distal aspect of the right great toe. Erosion/lucency through the distal tuft of the 1st distal phalanx, likely indicating osteomyelitis. LEFT FOOT: 1. Soft tissue ulceration along the distal/medial aspect of the great toe with circumferential soft tissue swelling. No radiopaque foreign body. No adjacent cortical erosion or periosteal reaction to suggest acute osteomyelitis, however, this may be occult on plain radiographs. 2. Severe osteoarthritis with prominent bony remodeling throughout the tibiotalar and midfoot joints, similar when compared to the prior radiographs from 2016. Duplex Scan Lower Extremity Artery 10/13/22 19:25 IMPRESSION: 1. No hemodynamically significant stenosis in the right lower extremity. 2. Incidental note is made of cardiac arrhythmia. Chest X-Ray 10/15/22 13:39 IMPRESSION: Right upper extremity PICC line tip projects over SVC. Medications Medications Current Medications Acetaminophen (Acetaminophen 325 Mg Tablet) 650 mg PO Q6H PRN PRN Reason: Headache/Pain Mild Scale (1-3) Last Admin: 10/28/22 21:43 Dose: 650 mg Al Hydroxide/Mg Hydroxide (Magnesium Hydrox/Alum Hydrox 30 Ml Oral.Susp) 30 ml PO Q6H PRN PRN Reason: Heartburn/Nausea Albuterol Sulfate (Albuterol Sulfate 90 Mcg 8 Gm Inhaler) 2 puff INHALE Q4H PRN PRN Reason: Shortness Of Breath Last Admin: 10/26/22 09:39 Dose: 2 puff Apixaban (Apixaban 5 Mg Tablet) 5 mg PO BID [facility] Last Admin: 10/29/22 08:24 Dose: 5 mg Aripiprazole (Aripiprazole 5 Mg Tablet) 7.5 mg PO DAILY [facility] Last Admin: 10/29/22 08:22 Dose: 7.5 mg Atorvastatin Calcium (Atorvastatin Calcium 80 Mg Tablet) 80 mg PO DAILY [facility] Last Admin: 10/29/22 08:24 Dose: 80 mg Diltiazem HCl (Diltiazem Hcl Cd 120 Mg Cap.Er.Deg) 120 mg PO DAILY@11 [facility]; Protocol Last Admin: 10/29/22 11:46 Dose: 120 mg Duloxetine HCl (Duloxetine Hcl 60 Mg Capsule.) 60 mg PO BID [facility] Last Admin: 10/29/22 08:21 Dose: 60 mg Ferrous Sulfate (Ferrous Sulfate 324 Mg Tablet.) 324 mg PO MoWeFr@0900 [facility] Last Admin: 10/29/22 08:25 Dose: 324 mg Gabapentin (Gabapentin 400 Mg Capsule) 400 mg PO QID [facility] Last Admin: 10/29/22 13:53 Dose: 400 mg Glucose (Glucose Gel 15 Gm Gel..Gram.) 15 gm PO Q15M PRN; Protocol PRN Reason: per Hypoglycemia Standing Ord. Hydroxyzine HCl (Hydroxyzine Hcl 25 Mg Tablet) 25 mg PO TID PRN PRN Reason: Anxiety Last Admin: 10/28/22 23:48 Dose: 25 mg Dextrose (D10) 250 mls @ 750 mls/hr IV Q15M PRN; Protocol PRN Reason: per Hypoglycemia Standing Ord. Vancomycin HCl 750 mg/ Sodium (Chloride) 265 mls @ 265 mls/hr IV Q12H [facility] Last Infusion: 10/29/22 06:03 Dose: Infused Ibuprofen (Ibuprofen 600 Mg Tablet) 600 mg PO Q6H PRN PRN Reason: Pain, Moderate(Pain Scale 4-6) Last Admin: 10/22/22 22:08 Dose: 600 mg Insulin Human Lispro (Insulin Lispro 100 Unit/Ml 3 Ml Vial) 0 unit SUBCUT QIDACHS [facility]; Protocol Last Admin: 10/29/22 11:47 Dose: 2 unit Lidocaine (Lidocaine 4 % Patch Adh..Patch) 1 patch TRANSDERMA DAILY [facility] Last Admin: 10/29/22 08:27 Dose: Not Given Lorazepam (Lorazepam 1 Mg Tablet) 2 mg PO TID PRN PRN Reason: Anxiety Last Admin: 10/29/22 12:45 Dose: 2 mg Magnesium Hydroxide (Milk Of Magnesia 30 Ml Oral.Susp) 30 ml PO DAILY PRN PRN Reason: Constipation Last Admin: 10/08/22 15:52 Dose: 30 ml Melatonin (Melatonin 3 Mg Tablet) 3 mg PO BEDTIME PRN PRN Reason: Insomnia Last Admin: 10/28/22 23:48 Dose: 3 mg Metformin HCl (Metformin Hcl 1,000 Mg Tablet) 1,000 mg PO DAILY [facility] Last Admin: 10/29/22 08:21 Dose: 1,000 mg Metoprolol Succinate (Metoprolol Succinate Er 25 Mg Tab.Er.24h) 75 mg PO BID [facility]; Protocol Last Admin: 10/29/22 08:23 Dose: 75 mg Naproxen (Naproxen 500 Mg Tablet) 500 mg PO BID PRN PRN Reason: Knee pain Last Admin: 10/24/22 22:27 Dose: 500 mg Nitroglycerin (Nitroglycerin 0.4 Mg Tab.Subl) 0.4 mg SUBLINGUAL Q5M PRN PRN Reason: Chest Pain Nystatin (Nystatin Powder 15 Gm Bottle) 1 appl TOPICAL BID [facility]; Protocol Last Admin: 10/29/22 08:27 Dose: Not Given Omeprazole (Omeprazole 20 Mg Capsule.Dr) 20 mg PO DAILY@0630 [facility] Last Admin: 10/29/22 06:02 Dose: 20 mg Ondansetron HCl (Ondansetron Odt 4 Mg Tab.Rapdis) 4 mg TRANSLINGU Q8H PRN PRN Reason: Nausea Phenytoin Sodium (Phenytoin Sodium Extended 100 Mg Capsule) 200 mg PO DAILY [facility] Last Admin: 10/29/22 08:20 Dose: 200 mg Phenytoin Sodium (Phenytoin Sodium Extended 100 Mg Capsule) 400 mg PO BEDTIME [facility] Last Admin: 10/28/22 20:47 Dose: 400 mg Quetiapine Fumarate (Quetiapine Fumarate 100 Mg Tablet) 100 mg PO BEDTIME PRN PRN Reason: Insomnia Last Admin: 10/26/22 03:01 Dose: 100 mg Quetiapine Fumarate (Quetiapine Fumarate 200 Mg Tablet) 200 mg PO BEDTIME YOHAN Last Admin: 10/28/22 20:47 Dose: 200 mg Senna (Sennosides 8.6 Mg Tablet) 8.6 mg PO DAILY [facility] Last Admin: 10/29/22 08:24 Dose: 8.6 mg Simethicone (Simethicone 80 Mg Tab.Chew) 80 mg PO TID PRN PRN Reason: Indigestion Sodium Chloride (0.9 % Sodium Chloride Flush 10 Ml Syringe) 5 ml IVFLUSH TID YOHAN Last Admin: 10/29/22 10:47 Dose: 5 ml Torsemide (Torsemide 20 Mg Tablet) 40 mg PO DAILY [facility]; Protocol Last Admin: 10/29/22 08:21 Dose: 40 mg Trazodone HCl (Trazodone Hcl 50 Mg Tablet) 50 mg PO BEDTIME MRX1 PRN PRN Reason: Insomnia Last Admin: 10/28/22 23:48 Dose: 50 mg Trazodone HCl (Trazodone Hcl 50 Mg Tablet) 50 mg PO BEDTIME YOHAN Last Admin: 10/28/22 20:48 Dose: 50 mg Allergies Allergies Allergy/AdvReac Type Severity Reaction Status Date / Time aspirin Allergy Severe OCCASIONAL Verified 04/08/22 14:18 RASH / TONGUE SWELLING, Hives, throat swellig bee pollen [BEE STINGS] Allergy Severe ANAPHYLAXIS Verified 04/08/22 14:18 Penicillins Allergy Severe ANAPHYLAXIS Verified 04/08/22 14:18 povidone-iodine [Betadine] Allergy Severe Redness of Verified 04/08/22 14:18 Skin soap [Betadine] Allergy Severe Redness of Verified 04/08/22 14:18 Skin spider venom [SPIDER BITES] Allergy Severe Hives Verified 04/08/22 14:18 amoxicillin Allergy Intermediate Hives Verified 04/08/22 14:18 clindamycin Allergy Mild RASH Verified 04/08/22 14:18 latex [Latex] Allergy Mild RASH Verified 04/08/22 14:18 shrimp Allergy Hives Verified 06/21/22 11:48 bupropion [From WELLBUTRIN] AdvReac Severe SEIZURES Verified 04/08/22 14:18 adhesive tape AdvReac Mild Rash Verified 04/14/22 15:55 Assessment & Plan Assessment & Plan (1) Atrial fibrillation with rapid ventricular response: Status: Acute Code(s): I48.91 - Unspecified atrial fibrillation Plan On checking pulse rate using his radial pulse, his rate is about 110/Min. On the recorded vital signs, some of the pulse rates are well within normal range but some of them are quite high up to 145/Min. With regard to the home regimen, listed to be on diltiazem ER 120 mg daily, metoprolol ER 70 mg daily and digoxin alternate days. Current meds however are diltiazem CD 1 20 mg daily with metoprolol at b.i.d. dosing. However, do not see digoxin. Echocardiogram from last year with LVEF of 55-60%. Normal right ventricular size and function. Mildly elevated right atrial pressure. IVC dilated. Other labs reviewed. Hemoglobin 9.7. White cell 6.2. Platelets 280. Potassium 3.5. Creatinine is 0.92. BUN is 18. High sensitivity troponins are well within normal range. Overall, atrial fibrillation with rapid rate could be from holding off on digoxin. Recommend starting it again. There is also discrepancy between what the patient is a send was reconciled. He states he is taking every day. Hence resume digoxin daily after loading dose and monitor EKGs periodically. Will follow as needed. Discussed with psychiatry as well as hospitalist service. Plan 1. Continue with Cymbalta 60 mg p.o. b.i.d. to target depression. At this moment the patient is not suicidal. 2. Continue with medical workout and treatment of osteomyelitis with IV and vancomycin. We will follow the recommendations of Medicine. 3. Waiting for placement Reason for continued inpatient stay Substantial Risk for: inability to function, rapid decompensation and med/psych decompensation Time Spent With Patient Time: Total time managing care of this patient today _20___ minutes.
[2022-10-29 14:34] LABS: Vancomycin Trough 15.8 mcg/mL (10.0-20.0)
[2022-10-29 16:26] LABS: Glucose, Whole Blood 122 mg/dL (60-115)
[2022-10-29 18:00] VITALS: BP 122/76; PULSE 100; RESP 18; TEMP 36.8; O2SAT 96
[2022-10-29] MEDS: traZODone HCL 50 MG TABLET PO (20:49)
[2022-10-29] MEDS: QUEtiapine Fumarate 200 MG TABLET PO (20:49)
[2022-10-29] MEDS: Phenytoin Sodium Extended 100 MG CAPSULE 400 MG PO (20:50)
[2022-10-29 21:07] LABS: Glucose, Whole Blood 187 mg/dL (60-115)
[2022-10-29] MEDS: Melatonin 3 MG TABLET PO (22:49)
[2022-10-29] MEDS: QUEtiapine Fumarate 100 MG TABLET PO (22:49)
[2022-10-29] MEDS: Nystatin Powder 15 GM BOTTLE 1 APPL TOPICAL (22:50)
[2022-10-30] MEDS: vancomycin HCL 750 MG in 0.9 % Sodium Chloride 250 ML 265 MG IV ×2 (04:17→14:40)
[2022-10-30] MEDS: Omeprazole 20 MG CAPSULE.DR PO (06:21)
[2022-10-30 07:27] LABS: Estimated Glomerular Filt Rate > 60
[2022-10-30 07:30] VITALS: BP 90/50; PULSE 86; RESP 15; TEMP 36.4; O2SAT 95
[2022-10-30 08:07] LABS: Glucose, Whole Blood 190 mg/dL (60-115)
[2022-10-30] MEDS: Sennosides 8.6 MG TABLET PO (08:49)
[2022-10-30] MEDS: Insulin Lispro 100 UNIT/ML 3 ML VIAL SUBCUT ×3 (08:49→22:07)
[2022-10-30] MEDS: Gabapentin 400 MG CAPSULE PO ×4 (08:50→20:26)
[2022-10-30] MEDS: Atorvastatin Calcium 80 MG TABLET PO ×2 (08:50→10:05)
[2022-10-30] MEDS: Apixaban 5 MG TABLET PO ×2 (08:51→20:29)
[2022-10-30] MEDS: ARIPiprazole 5 MG TABLET 7.5 MG PO (08:51)
[2022-10-30] MEDS: DULoxetine HCl 60 MG CAPSULE.DR PO ×2 (08:52→20:26)
[2022-10-30] MEDS: Phenytoin Sodium Extended 100 MG CAPSULE 200 MG PO (08:52)
[2022-10-30] MEDS: metFORMIN HCl 1,000 MG TABLET 1000 MG PO (08:53)
--- NOTE | 2022-10-30 09:52 | P.PNPSI_ITS ---
Subjective Subjective Date of Service: 10/30/22 Reason For Visit: Major depressive disorder Interim History: pt obese, recumbent in bed, awake. discuss mgmt of his toe osteomyelitis, low B P this morning and the holding of his medications. broaches his severe chronic knee pain, noting his PCP prescribes him oxycodone outpt, etc. defers his request to primary Tx team next week as pt has been here for several weeks already and this is a chronic problem. pt expresses understanding. no other requests or complaints. per staff, low BP this morning, BP meds held. pt had also requested ativan, which was held as well. toe looks fine currently, getting IV vancomycin BID. Mental Status Exam Mental Status Exam Narrative: calm, cooperative. hospital edilberto, disheveled appearance. cooperative with interview. no PMA/PMR. speech nml rate, amount, loudness, latency. thoughts linear and logical, focused on oxycodone this morning. affect constricted, normo-intense, non-labile. no SI/HI/AVH expressed. Diagnostics Vital Signs (24Hr): Vital Signs - 24 hr 10/29/22 11:40 10/29/22 18:00 Temperature 98.2 F Pulse Rate 113 H 100 Respiratory Rate 18 Blood Pressure 120/67 122/76 Pulse Oximetry 96 Oxygen Delivery Method Room Air BMI result Body Mass Index 41.1 Labs 10/07/22 10:53 10/30/22 06:55 Labs: Laboratory Results - last 48 hr 10/28/22 10/28/22 10/28/22 11:45 14:07 16:43 Creatinine Estim Creat Clear Calc Estimated GFR POC Glucose 134 H 147 H Troponin I High Sens Vancomycin Trough Random Vancomycin 16.5 10/28/22 10/28/22 10/29/22 20:14 22:59 01:51 Creatinine Estim Creat Clear Calc Estimated GFR POC Glucose 184 H Troponin I High Sens 38.4 H D 38.9 H Vancomycin Trough Random Vancomycin 10/29/22 10/29/22 10/29/22 07:03 07:03 07:34 Creatinine 0.92 Estim Creat Clear Calc 126.6 Estimated GFR > 60 POC Glucose 166 H Troponin I High Sens 35.7 H Vancomycin Trough Random Vancomycin 10/29/22 10/29/22 10/29/22 11:31 14:11 16:20 Creatinine Estim Creat Clear Calc Estimated GFR POC Glucose 153 H 122 H Troponin I High Sens Vancomycin Trough 15.8 Random Vancomycin 10/29/22 10/30/22 10/30/22 20:17 06:55 08:02 Creatinine 0.91 Estim Creat Clear Calc 128.0 Estimated GFR > 60 POC Glucose 187 H 190 H Troponin I High Sens Vancomycin Trough Random Vancomycin Imaging Radiology Impressions: ITS Impressions Hand/Wrist X-Ray 10/07/22 22:07 IMPRESSION: Old healed fracture of the distal shaft of the fifth metacarpal bone and question old or healing fracture of the neck of the fourth metacarpal bone. No acute fracture. Foot X-Ray 10/11/22 12:56 IMPRESSION: RIGHT FOOT: Soft tissue ulceration at the distal aspect of the right great toe. Erosion/lucency through the distal tuft of the 1st distal phalanx, likely indicating osteomyelitis. LEFT FOOT: 1. Soft tissue ulceration along the distal/medial aspect of the great toe with circumferential soft tissue swelling. No radiopaque foreign body. No adjacent cortical erosion or periosteal reaction to suggest acute osteomyelitis, however, this may be occult on plain radiographs. 2. Severe osteoarthritis with prominent bony remodeling throughout the tibiotalar and midfoot joints, similar when compared to the prior radiographs from 2016. Foot X-Ray 10/11/22 12:56 IMPRESSION: RIGHT FOOT: Soft tissue ulceration at the distal aspect of the right great toe. Erosion/lucency through the distal tuft of the 1st distal phalanx, likely indicating osteomyelitis. LEFT FOOT: 1. Soft tissue ulceration along the distal/medial aspect of the great toe with circumferential soft tissue swelling. No radiopaque foreign body. No adjacent cortical erosion or periosteal reaction to suggest acute osteomyelitis, however, this may be occult on plain radiographs. 2. Severe osteoarthritis with prominent bony remodeling throughout the tibiotalar and midfoot joints, similar when compared to the prior radiographs from 2016. Duplex Scan Lower Extremity Artery 10/13/22 19:25 IMPRESSION: 1. No hemodynamically significant stenosis in the right lower extremity. 2. Incidental note is made of cardiac arrhythmia. Chest X-Ray 10/15/22 13:39 IMPRESSION: Right upper extremity PICC line tip projects over SVC. Medications Medications Current Medications Acetaminophen (Acetaminophen 325 Mg Tablet) 650 mg PO Q6H PRN PRN Reason: Headache/Pain Mild Scale (1-3) Last Admin: 10/28/22 21:43 Dose: 650 mg Al Hydroxide/Mg Hydroxide (Magnesium Hydrox/Alum Hydrox 30 Ml Oral.Susp) 30 ml PO Q6H PRN PRN Reason: Heartburn/Nausea Albuterol Sulfate (Albuterol Sulfate 90 Mcg 8 Gm Inhaler) 2 puff INHALE Q4H PRN PRN Reason: Shortness Of Breath Last Admin: 10/26/22 09:39 Dose: 2 puff Apixaban (Apixaban 5 Mg Tablet) 5 mg PO BID [facility] Last Admin: 10/30/22 08:51 Dose: 5 mg Aripiprazole (Aripiprazole 5 Mg Tablet) 7.5 mg PO DAILY [facility] Last Admin: 10/30/22 08:51 Dose: 7.5 mg Atorvastatin Calcium (Atorvastatin Calcium 80 Mg Tablet) 80 mg PO DAILY [facility] Last Admin: 10/30/22 08:50 Dose: 80 mg Diltiazem HCl (Diltiazem Hcl Cd 120 Mg Cap.Er.Deg) 120 mg PO DAILY@11 [facility]; Protocol Last Admin: 10/29/22 11:46 Dose: 120 mg Duloxetine HCl (Duloxetine Hcl 60 Mg Capsule.Dr) 60 mg PO BID [facility] Last Admin: 10/30/22 08:52 Dose: 60 mg Ferrous Sulfate (Ferrous Sulfate 324 Mg Tablet.Dr) 324 mg PO MoWeFr@0900 [facility] Last Admin: 10/29/22 08:25 Dose: 324 mg Gabapentin (Gabapentin 400 Mg Capsule) 400 mg PO QID [facility] Last Admin: 10/30/22 08:50 Dose: 400 mg Glucose (Glucose Gel 15 Gm Gel..Gram.) 15 gm PO Q15M PRN; Protocol PRN Reason: per Hypoglycemia Standing Ord. Hydroxyzine HCl (Hydroxyzine Hcl 25 Mg Tablet) 25 mg PO TID PRN PRN Reason: Anxiety Last Admin: 10/28/22 23:48 Dose: 25 mg Dextrose (D10) 250 mls @ 750 mls/hr IV Q15M PRN; Protocol PRN Reason: per Hypoglycemia Standing Ord. Vancomycin HCl 750 mg/ Sodium (Chloride) 265 mls @ 265 mls/hr IV Q12H [facility] Last Infusion: 10/30/22 05:22 Dose: Infused Ibuprofen (Ibuprofen 600 Mg Tablet) 600 mg PO Q6H PRN PRN Reason: Pain, Moderate(Pain Scale 4-6) Last Admin: 10/22/22 22:08 Dose: 600 mg Insulin Human Lispro (Insulin Lispro 100 Unit/Ml 3 Ml Vial) 0 unit SUBCUT QIDACHS [facility]; Protocol Last Admin: 10/30/22 08:49 Dose: 2 unit Lidocaine (Lidocaine 4 % Patch Adh..Patch) 1 patch TRANSDERMA DAILY [facility] Last Admin: 10/30/22 08:53 Dose: Not Given Lorazepam (Lorazepam 1 Mg Tablet) 2 mg PO TID PRN PRN Reason: Anxiety Last Admin: 10/29/22 20:49 Dose: 2 mg Magnesium Hydroxide (Milk Of Magnesia 30 Ml Oral.Susp) 30 ml PO DAILY PRN PRN Reason: Constipation Last Admin: 10/08/22 15:52 Dose: 30 ml Melatonin (Melatonin 3 Mg Tablet) 3 mg PO BEDTIME PRN PRN Reason: Insomnia Last Admin: 10/29/22 22:49 Dose: 3 mg Metformin HCl (Metformin Hcl 1,000 Mg Tablet) 1,000 mg PO DAILY [facility] Last Admin: 10/30/22 08:53 Dose: 1,000 mg Metoprolol Succinate (Metoprolol Succinate Er 25 Mg Tab.Er.24h) 75 mg PO BID [facility]; Protocol Last Admin: 10/30/22 08:50 Dose: Not Given Naproxen (Naproxen 500 Mg Tablet) 500 mg PO BID PRN PRN Reason: Knee pain Last Admin: 10/24/22 22:27 Dose: 500 mg Nitroglycerin (Nitroglycerin 0.4 Mg Tab.Subl) 0.4 mg SUBLINGUAL Q5M PRN PRN Reason: Chest Pain Nystatin (Nystatin Powder 15 Gm Bottle) 1 appl TOPICAL BID [facility]; Protocol Last Admin: 10/30/22 08:53 Dose: Not Given Omeprazole (Omeprazole 20 Mg Capsule.Dr) 20 mg PO DAILY@0630 [facility] Last Admin: 10/30/22 06:21 Dose: 20 mg Ondansetron HCl (Ondansetron Odt 4 Mg Tab.Rapdis) 4 mg TRANSLINGU Q8H PRN PRN Reason: Nausea Phenytoin Sodium (Phenytoin Sodium Extended 100 Mg Capsule) 200 mg PO DAILY [facility] Last Admin: 10/30/22 08:52 Dose: 200 mg Phenytoin Sodium (Phenytoin Sodium Extended 100 Mg Capsule) 400 mg PO BEDTIME [facility] Last Admin: 10/29/22 20:50 Dose: 400 mg Quetiapine Fumarate (Quetiapine Fumarate 100 Mg Tablet) 100 mg PO BEDTIME PRN PRN Reason: Insomnia Last Admin: 10/29/22 22:49 Dose: 100 mg Quetiapine Fumarate (Quetiapine Fumarate 200 Mg Tablet) 200 mg PO BEDTIME [facility] Last Admin: 10/29/22 20:49 Dose: 200 mg Senna (Sennosides 8.6 Mg Tablet) 8.6 mg PO DAILY [facility] Last Admin: 10/30/22 08:49 Dose: 8.6 mg Simethicone (Simethicone 80 Mg Tab.Chew) 80 mg PO TID PRN PRN Reason: Indigestion Sodium Chloride (0.9 % Sodium Chloride Flush 10 Ml Syringe) 5 ml IVFLUSH TID [facility] Last Admin: 10/29/22 20:48 Dose: 5 ml Torsemide (Torsemide 20 Mg Tablet) 40 mg PO DAILY [facility]; Protocol Last Admin: 10/30/22 08:53 Dose: Not Given Trazodone HCl (Trazodone Hcl 50 Mg Tablet) 50 mg PO BEDTIME MRX1 PRN PRN Reason: Insomnia Last Admin: 10/28/22 23:48 Dose: 50 mg Trazodone HCl (Trazodone Hcl 50 Mg Tablet) 50 mg PO BEDTIME [facility] Last Admin: 10/29/22 20:49 Dose: 50 mg Allergies Allergies Allergy/AdvReac Type Severity Reaction Status Date / Time aspirin Allergy Severe OCCASIONAL Verified 04/08/22 14:18 RASH / TONGUE SWELLING, Hives, throat swellig bee pollen [BEE STINGS] Allergy Severe ANAPHYLAXIS Verified 04/08/22 14:18 Penicillins Allergy Severe ANAPHYLAXIS Verified 04/08/22 14:18 povidone-iodine [Betadine] Allergy Severe Redness of Verified 04/08/22 14:18 Skin soap [Betadine] Allergy Severe Redness of Verified 04/08/22 14:18 Skin spider venom [SPIDER BITES] Allergy Severe Hives Verified 04/08/22 14:18 amoxicillin Allergy Intermediate Hives Verified 04/08/22 14:18 clindamycin Allergy Mild RASH Verified 04/08/22 14:18 latex [Latex] Allergy Mild RASH Verified 04/08/22 14:18 shrimp Allergy Hives Verified 06/21/22 11:48 bupropion [From WELLBUTRIN] AdvReac Severe SEIZURES Verified 04/08/22 14:18 adhesive tape AdvReac Mild Rash Verified 04/14/22 15:55 Assessment & Plan Assessment & Plan (1) Atrial fibrillation with rapid ventricular response: Status: Acute Code(s): I48.91 - Unspecified atrial fibrillation Plan On checking pulse rate using his radial pulse, his rate is about 110/Min. On the recorded vital signs, some of the pulse rates are well within normal range but some of them are quite high up to 145/Min. With regard to the home regimen, listed to be on diltiazem ER 120 mg daily, metoprolol ER 70 mg daily and digoxin alternate days. Current meds however are diltiazem CD 1 20 mg daily with metoprolol at b.i.d. dosing. However, do not see digoxin. Echocardiogram from last year with LVEF of 55-60%. Normal right ventricular size and function. Mildly elevated right atrial pressure. IVC dilated. Other labs reviewed. Hemoglobin 9.7. White cell 6.2. Platelets 280. Potassium 3.5. Creatinine is 0.92. BUN is 18. High sensitivity troponins are well within normal range. Overall, atrial fibrillation with rapid rate could be from holding off on d igoxin. Recommend starting it again. There is also discrepancy between what the patient is a send was reconciled. He states he is taking every day. Hence resume digoxin daily after loading dose and monitor EKGs periodically. Will follow as needed. Discussed with psychiatry as well as hospitalist service. Plan 1. Continue with Cymbalta 60 mg p.o. b.i.d. to target depression. At this moment the patient is not suicidal. 2. Continue with medical workout and treatment of osteomyelitis with IV and vancomycin. We will follow the recommendations of Medicine. 3. Waiting for placement 10/30: asking about oxycodone for knee pain, deferred to primary team's return on tuesday as this is a chronic problem and pt has been here for several weeks already. held BP meds in a.m. due to hypotension, otherwise no change to mgmt/plan. appears depressed, but stable. Reason for continued inpatient stay Substantial Risk for: inability to function and rapid decompensation Time Spent With Patient Time: Total time managing care of this patient today ____ minutes.
[2022-10-30 10:02] VITALS: BP 122/65
[2022-10-30] MEDS: Metoprolol Succinate ER 25 MG TAB.ER.24H 75 MG PO ×2 (10:05→20:28)
[2022-10-30] MEDS: Torsemide 20 MG TABLET 40 MG PO (10:05)
[2022-10-30] MEDS: LORazepam 1 MG TABLET 2 MG PO ×2 (10:05→17:29)
[2022-10-30] MEDS: 0.9 % Sodium Chloride Flush 10 ML SYRINGE 5 ML IVFLUSH ×2 (10:33→14:55)
[2022-10-30 11:40] LABS: Glucose, Whole Blood 167 mg/dL (60-115)
[2022-10-30 11:55] VITALS: BP 113/79; PULSE 96
[2022-10-30] MEDS: dilTIAZem HCL CD 120 MG CAP.ER.DEG PO (12:01)
[2022-10-30 15:03] LABS: Vancomycin Random 14.4 mcg/mL (15-20)
--- NOTE | 2022-10-30 15:37 | HE.PHANOTE ---
VANCOMYCIN ADDENDUM: 10/30/22 LEVEL CAME BACK AT 14.4, PREDICTED AUC IS LESS THAN 400, INCREASED DOSE TO 1 GRAM Q12 HOURS, AND WILL TAKE A NEW LEVEL AFTER 3 DOSES
[2022-10-30 16:35] LABS: Glucose, Whole Blood 97 mg/dL (60-115)
[2022-10-30] MEDS: vancomycin HCL 1,000 MG in 0.9 % Sodium Chloride 250 ML 270 MG IV (17:10)
[2022-10-30 18:00] VITALS: BP 124/64; PULSE 98; RESP 16; TEMP 36.1; O2SAT 93
[2022-10-30] MEDS: Phenytoin Sodium Extended 100 MG CAPSULE 400 MG PO (20:26)
[2022-10-30] MEDS: Acetaminophen 325 MG TABLET 650 MG PO (20:27)
[2022-10-30] MEDS: QUEtiapine Fumarate 200 MG TABLET PO (20:29)
[2022-10-30] MEDS: Melatonin 3 MG TABLET PO (20:29)
[2022-10-30 22:07] LABS: Glucose, Whole Blood 184 mg/dL (60-115)
[2022-10-31] MEDS: Nystatin Powder 15 GM BOTTLE 1 APPL TOPICAL (00:48)
[2022-10-31] MEDS: 0.9 % Sodium Chloride Flush 10 ML SYRINGE 5 ML IVFLUSH ×4 (00:48→19:59)
[2022-10-31] MEDS: vancomycin HCL 1,000 MG in 0.9 % Sodium Chloride 250 ML 270 MG IV ×2 (04:00→16:31)
[2022-10-31] MEDS: Omeprazole 20 MG CAPSULE.DR PO (06:09)
[2022-10-31 07:12] LABS: Creatinine Clr Calc Pharmacy 132.4; Estimated Glomerular Filt Rate > 60
[2022-10-31 07:30] VITALS: BP 110/70; PULSE 89; RESP 15; TEMP 37.1; O2SAT 93
[2022-10-31 07:42] LABS: Glucose, Whole Blood 169 mg/dL (60-115)
[2022-10-31] MEDS: Insulin Lispro 100 UNIT/ML 3 ML VIAL SUBCUT ×3 (08:25→17:04)
[2022-10-31] MEDS: Metoprolol Succinate ER 25 MG TAB.ER.24H 75 MG PO ×2 (08:26→19:56)
[2022-10-31] MEDS: Apixaban 5 MG TABLET PO ×2 (08:26→19:58)
[2022-10-31] MEDS: Torsemide 20 MG TABLET 40 MG PO (08:26)
[2022-10-31] MEDS: ARIPiprazole 5 MG TABLET 7.5 MG PO (08:26)
[2022-10-31] MEDS: DULoxetine HCl 60 MG CAPSULE.DR PO ×2 (08:26→19:57)
[2022-10-31] MEDS: Phenytoin Sodium Extended 100 MG CAPSULE 200 MG PO (08:26)
[2022-10-31] MEDS: Sennosides 8.6 MG TABLET PO (08:27)
[2022-10-31] MEDS: Atorvastatin Calcium 80 MG TABLET PO (08:27)
[2022-10-31] MEDS: metFORMIN HCl 1,000 MG TABLET 1000 MG PO (08:28)
--- NOTE | 2022-10-31 08:28 | HE.PHANOTE ---
Vancomycin Dosing Addendum Patients dose recently increased with a level to be drawn 11/01 @0200, changed to @1400 to pharmacy can follow and change dose accordingly if needed. Renal function stable.
[2022-10-31] MEDS: Gabapentin 400 MG CAPSULE PO ×4 (08:29→19:57)
[2022-10-31] MEDS: LORazepam 1 MG TABLET 2 MG PO ×2 (09:01→20:32)
--- NOTE | 2022-10-31 10:47 | HO.PSYCHPN ---
Subjective Subjective Date of Service: 10/31/22 Reason For Visit: Major depressive disorder Interim History: calm, cooperative. knee pain really btoerhing him, saying he may check out of the hospital tuesday or tuesday because he has pain meds at home he can take. states otherwise the [employer] won last night, so he is feeling pretty good. per staff, vanco level 14.4 last NOC so dosing increased to 1000. stable. Mental Status Exam Mental Status Exam Narrative: calm, cooperative. hospital edilberto, disheveled appearance. cooperative with interview. no PMA/PMR. speech nml rate, amount, loudness, latency. thoughts linear and logical, focused on oxycodone this morning. affect constricted, normo-intense, non-labile. no SI/HI/AVH expressed. Diagnostics Vital Signs (24Hr): Vital Signs - 24 hr 10/30/22 11:55 10/30/22 18:00 Temperature 97 F Pulse Rate 96 98 Respiratory Rate 16 Blood Pressure 113/79 124/64 Pulse Oximetry 93 Oxygen Delivery Method Room Air BMI result Body Mass Index 41.1 Labs 10/07/22 10:53 10/31/22 06:46 Labs: Laboratory Results - last 48 hr 10/29/22 10/29/22 10/29/22 11:31 14:11 16:20 Creatinine Estim Creat Clear Calc Estimated GFR POC Glucose 153 H 122 H Vancomycin Trough 15.8 Random Vancomycin 10/29/22 10/30/22 10/30/22 20:17 06:55 08:02 Creatinine 0.91 Estim Creat Clear Calc 128.0 Estimated GFR > 60 POC Glucose 187 H 190 H Vancomycin Trough Random Vancomycin 10/30/22 10/30/22 10/30/22 11:33 14:33 16:24 Creatinine Estim Creat Clear Calc Estimated GFR POC Glucose 167 H 97 Vancomycin Trough Random Vancomycin 14.4 L 10/30/22 10/31/22 10/31/22 22:01 06:46 07:38 Creatinine 0.88 Estim Creat Clear Calc 132.4 Estimated GFR > 60 POC Glucose 184 H 169 H Vancomycin Trough Random Vancomycin Imaging Radiology Impressions: ITS Impressions Hand/Wrist X-Ray 10/07/22 22:07 IMPRESSION: Old healed fracture of the distal shaft of the fifth metacarpal bone and question old or healing fracture of the neck of the fourth metacarpal bone. No acute fracture. Foot X-Ray 10/11/22 12:56 IMPRESSION: RIGHT FOOT: Soft tissue ulceration at the distal aspect of the right great toe. Erosion/lucency through the distal tuft of the 1st distal phalanx, likely indicating osteomyelitis. LEFT FOOT: 1. Soft tissue ulceration along the distal/medial aspect of the great toe with circumferential soft tissue swelling. No radiopaque foreign body. No adjacent cortical erosion or periosteal reaction to suggest acute osteomyelitis, however, this may be occult on plain radiographs. 2. Severe osteoarthritis with prominent bony remodeling throughout the tibiotalar and midfoot joints, similar when compared to the prior radiographs from 2016. Foot X-Ray 10/11/22 12:56 IMPRESSION: RIGHT FOOT: Soft tissue ulceration at the distal aspect of the right great toe. Erosion/lucency through the distal tuft of the 1st distal phalanx, likely indicating osteomyelitis. LEFT FOOT: 1. Soft tissue ulceration along the distal/medial aspect of the great toe with circumferential soft tissue swelling. No radiopaque foreign body. No adjacent cortical erosion or periosteal reaction to suggest acute osteomyelitis, however, this may be occult on plain radiographs. 2. Severe osteoarthritis with prominent bony remodeling throughout the tibiotalar and midfoot joints, similar when compared to the prior radiographs from 2016. Duplex Scan Lower Extremity Artery 10/13/22 19:25 IMPRESSION: 1. No hemodynamically significant stenosis in the right lower extremity. 2. Incidental note is made of cardiac arrhythmia. Chest X-Ray 10/15/22 13:39 IMPRESSION: Right upper extremity PICC line tip projects over SVC. Medications Medications Current Medications Acetaminophen (Acetaminophen 325 Mg Tablet) 650 mg PO Q6H PRN PRN Reason: Headache/Pain Mild Scale (1-3) Last Admin: 10/30/22 20:27 Dose: 650 mg Al Hydroxide/Mg Hydroxide (Magnesium Hydrox/Alum Hydrox 30 Ml Oral.Susp) 30 ml PO Q6H PRN PRN Reason: Heartburn/Nausea Albuterol Sulfate (Albuterol Sulfate 90 Mcg 8 Gm Inhaler) 2 puff INHALE Q4H PRN PRN Reason: Shortness Of Breath Last Admin: 10/26/22 09:39 Dose: 2 puff Apixaban (Apixaban 5 Mg Tablet) 5 mg PO BID YOHAN Last Admin: 10/31/22 08:26 Dose: 5 mg Aripiprazole (Aripiprazole 5 Mg Tablet) 7.5 mg PO DAILY [facility] Last Admin: 10/31/22 08:26 Dose: 7.5 mg Atorvastatin Calcium (Atorvastatin Calcium 80 Mg Tablet) 80 mg PO DAILY [facility] Last Admin: 10/31/22 08:27 Dose: 80 mg Diltiazem HCl (Diltiazem Hcl Cd 120 Mg Cap.Er.Deg) 120 mg PO DAILY@11 [facility]; Protocol Last Admin: 10/30/22 12:01 Dose: 120 mg Doxycycline Monohydrate (Doxycycline Monohydrate 100 Mg Capsule) 100 mg PO Q12H [facility] Stop: 12/23/22 09:01 Duloxetine HCl (Duloxetine Hcl 60 Mg Capsule.) 60 mg PO BID [facility] Last Admin: 10/31/22 08:26 Dose: 60 mg Ferrous Sulfate (Ferrous Sulfate 324 Mg Tablet.) 324 mg PO MoWeFr@0900 [facility] Last Admin: 10/29/22 08:25 Dose: 324 mg Gabapentin (Gabapentin 400 Mg Capsule) 400 mg PO QID [facility] Last Admin: 10/31/22 08:29 Dose: 400 mg Glucose (Glucose Gel 15 Gm Gel..Gram.) 15 gm PO Q15M PRN; Protocol PRN Reason: per Hypoglycemia Standing Ord. Hydroxyzine HCl (Hydroxyzine Hcl 25 Mg Tablet) 25 mg PO TID PRN PRN Reason: Anxiety Last Admin: 10/28/22 23:48 Dose: 25 mg Dextrose (D10) 250 mls @ 750 mls/hr IV Q15M PRN; Protocol PRN Reason: per Hypoglycemia Standing Ord. Vancomycin HCl 1,000 mg/ (Sodium Chloride) 270 mls @ 270 mls/hr IV Q12H [facility] Stop: 11/23/22 15:59 Last Infusion: 10/31/22 05:22 Dose: Infused Ibuprofen (Ibuprofen 600 Mg Tablet) 600 mg PO Q6H PRN PRN Reason: Pain, Moderate(Pain Scale 4-6) Last Admin: 10/22/22 22:08 Dose: 600 mg Insulin Human Lispro (Insulin Lispro 100 Unit/Ml 3 Ml Vial) 0 unit SUBCUT QIDACHS [facility]; Protocol Last Admin: 10/31/22 08:25 Dose: 2 unit Lidocaine (Lidocaine 4 % Patch Adh..Patch) 1 patch TRANSDERMA DAILY [facility] Last Admin: 10/31/22 08:30 Dose: Not Given Magnesium Hydroxide (Milk Of Magnesia 30 Ml Oral.Susp) 30 ml PO DAILY PRN PRN Reason: Constipation Last Admin: 10/08/22 15:52 Dose: 30 ml Melatonin (Melatonin 3 Mg Tablet) 3 mg PO BEDTIME PRN PRN Reason: Insomnia Last Admin: 10/30/22 20:29 Dose: 3 mg Metformin HCl (Metformin Hcl 1,000 Mg Tablet) 1,000 mg PO DAILY [facility] Last Admin: 10/31/22 08:28 Dose: 1,000 mg Metoprolol Succinate (Metoprolol Succinate Er 25 Mg Tab.Er.24h) 75 mg PO BID [facility]; Protocol Last Admin: 10/31/22 08:26 Dose: 75 mg Naproxen (Naproxen 500 Mg Tablet) 500 mg PO BID PRN PRN Reason: Knee pain Last Admin: 10/24/22 22:27 Dose: 500 mg Nitroglycerin (Nitroglycerin 0.4 Mg Tab.Subl) 0.4 mg SUBLINGUAL Q5M PRN PRN Reason: Chest Pain Nystatin (Nystatin Powder 15 Gm Bottle) 1 appl TOPICAL BID [facility]; Protocol Last Admin: 10/31/22 08:28 Dose: Not Given Omeprazole (Omeprazole 20 Mg Capsule.Dr) 20 mg PO DAILY@0630 [facility] Last Admin: 10/31/22 06:09 Dose: 20 mg Ondansetron HCl (Ondansetron Odt 4 Mg Tab.Rapdis) 4 mg TRANSLINGU Q8H PRN PRN Reason: Nausea Phenytoin Sodium (Phenytoin Sodium Extended 100 Mg Capsule) 200 mg PO DAILY [facility] Last Admin: 10/31/22 08:26 Dose: 200 mg Phenytoin Sodium (Phenytoin Sodium Extended 100 Mg Capsule) 400 mg PO BEDTIME [facility] Last Admin: 10/30/22 20:26 Dose: 400 mg Quetiapine Fumarate (Quetiapine Fumarate 100 Mg Tablet) 100 mg PO BEDTIME PRN PRN Reason: Insomnia Last Admin: 10/29/22 22:49 Dose: 100 mg Quetiapine Fumarate (Quetiapine Fumarate 200 Mg Tablet) 200 mg PO BEDTIME [facility] Last Admin: 10/30/22 20:29 Dose: 200 mg Senna (Sennosides 8.6 Mg Tablet) 8.6 mg PO DAILY [facility] Last Admin: 10/31/22 08:27 Dose: 8.6 mg Simethicone (Simethicone 80 Mg Tab.Chew) 80 mg PO TID PRN PRN Reason: Indigestion Sodium Chloride (0.9 % Sodium Chloride Flush 10 Ml Syringe) 5 ml IVFLUSH TID YOHAN Last Admin: 10/31/22 08:25 Dose: 5 ml Torsemide (Torsemide 20 Mg Tablet) 40 mg PO DAILY [facility]; Protocol Last Admin: 10/31/22 08:26 Dose: 40 mg Trazodone HCl (Trazodone Hcl 50 Mg Tablet) 50 mg PO BEDTIME MRX1 PRN PRN Reason: Insomnia Last Admin: 10/28/22 23:48 Dose: 50 mg Trazodone HCl (Trazodone Hcl 50 Mg Tablet) 50 mg PO BEDTIME YOHAN Last Admin: 10/29/22 20:49 Dose: 50 mg Allergies Allergies Allergy/AdvReac Type Severity Reaction Status Date / Time aspirin Allergy Severe OCCASIONAL Verified 04/08/22 14:18 RASH / TONGUE SWELLING, Hives, throat swellig bee pollen [BEE STINGS] Allergy Severe ANAPHYLAXIS Verified 04/08/22 14:18 Penicillins Allergy Severe ANAPHYLAXIS Verified 04/08/22 14:18 povidone-iodine [Betadine] Allergy Severe Redness of Verified 04/08/22 14:18 Skin soap [Betadine] Allergy Severe Redness of Verified 04/08/22 14:18 Skin spider venom [SPIDER BITES] Allergy Severe Hives Verified 04/08/22 14:18 amoxicillin Allergy Intermediate Hives Verified 04/08/22 14:18 clindamycin Allergy Mild RASH Verified 04/08/22 14:18 latex [Latex] Allergy Mild RASH Verified 04/08/22 14:18 shrimp Allergy Hives Verified 06/21/22 11:48 bupropion [From WELLBUTRIN] AdvReac Severe SEIZURES Verified 04/08/22 14:18 adhesive tape AdvReac Mild Rash Verified 04/14/22 15:55 Assessment & Plan Assessment & Plan (1) Atrial fibrillation with rapid ventricular response: Status: Acute Code(s): I48.91 - Unspecified atrial fibrillation Plan On checking pulse rate using his radial pulse, his rate is about 110/Min. On the recorded vital signs, some of the pulse rates are well within normal range but some of them are quite high up to 145/Min. With regard to the home regimen, listed to be on diltiazem ER 120 mg daily, metoprolol ER 70 mg daily and digoxin alternate days. Current meds however are diltiazem CD 1 20 mg daily with metoprolol at b.i.d. dosing. However, do not see digoxin. Echocardiogram from last year with LVEF of 55-60%. Normal right ventricular size and function. Mildly elevated right atrial pressure. IVC dilated. Other labs reviewed. Hemoglobin 9.7. White cell 6.2. Platelets 280. Potassium 3.5. Creatinine is 0.92. BUN is 18. High sensitivity troponins are well within normal range. Overall, atrial fibrillation with rapid rate could be from holding off on digoxin. Recommend starting it again. There is also discrepancy between what the patient is a send was reconciled. He states he is taking every day. Hence resume digoxin daily after loading dose and monitor EKGs periodically. Will follow as needed. Discussed with psychiatry as well as hospitalist service. Plan 1. Continue with Cymbalta 60 mg p.o. b.i.d. to target depression. At this moment the patient is not suicidal. 2. Continue with medical workout and treatment of osteomyelitis with IV and vancomycin. We will follow the recommendations of Medicine. 3. Waiting for placement 10/30: asking about oxycodone for knee pain, deferred to primary team's return on tuesday as this is a chronic problem and pt has been here for several weeks already. held BP meds in a.m. due to hypotension, otherwise no change to mgmt/plan. appears depressed, but stable. 10/31: stating he may ask to DC tue or tue to get home to get pain meds for knee. otherwise no complaints or requests. Reason for continued inpatient stay Substantial Risk for: rapid decompensation Time Spent With Patient Time: Total time managing care of this patient today ____ minutes.
[2022-10-31 11:23] LABS: Glucose, Whole Blood 156 mg/dL (60-115)
[2022-10-31] MEDS: dilTIAZem HCL CD 120 MG CAP.ER.DEG PO (11:37)
[2022-10-31 17:02] LABS: Glucose, Whole Blood 184 mg/dL (60-115)
[2022-10-31 18:00] VITALS: BP 180/79; PULSE 96; RESP 16; TEMP 36.3; O2SAT 94
[2022-10-31 19:53] LABS: Glucose, Whole Blood 145 mg/dL (60-115)
[2022-10-31] MEDS: Phenytoin Sodium Extended 100 MG CAPSULE 400 MG PO (19:55)
[2022-10-31] MEDS: QUEtiapine Fumarate 200 MG TABLET PO (19:57)
[2022-10-31 21:00] VITALS: BP 130/97; PULSE 106; RESP 16; O2SAT 96
[2022-10-31] MEDS: traZODone HCL 50 MG TABLET PO (21:56)
[2022-11-01] MEDS: QUEtiapine Fumarate 100 MG TABLET PO (02:02)
[2022-11-01] MEDS: vancomycin HCL 1,000 MG in 0.9 % Sodium Chloride 250 ML 270 MG IV ×2 (03:43→16:16)
[2022-11-01] MEDS: Omeprazole 20 MG CAPSULE.DR PO (05:06)
[2022-11-01 07:52] LABS: Glucose, Whole Blood 173 mg/dL (60-115)
[2022-11-01 08:01] LABS: Estimated Glomerular Filt Rate > 60
[2022-11-01 09:00] VITALS: BP 121/71; PULSE 96; RESP 18; TEMP 35.9; O2SAT 94
[2022-11-01] MEDS: Metoprolol Succinate ER 25 MG TAB.ER.24H 75 MG PO ×2 (09:06→20:19)
[2022-11-01] MEDS: LORazepam 1 MG TABLET 2 MG PO ×2 (09:06→16:16)
[2022-11-01] MEDS: Apixaban 5 MG TABLET PO ×2 (09:06→20:19)
[2022-11-01] MEDS: metFORMIN HCl 1,000 MG TABLET 1000 MG PO (09:07)
[2022-11-01] MEDS: Torsemide 20 MG TABLET 40 MG PO (09:07)
[2022-11-01] MEDS: Gabapentin 400 MG CAPSULE PO ×4 (09:07→20:19)
[2022-11-01] MEDS: ARIPiprazole 5 MG TABLET 7.5 MG PO (09:07)
[2022-11-01] MEDS: DULoxetine HCl 60 MG CAPSULE.DR PO ×2 (09:07→20:19)
[2022-11-01] MEDS: Phenytoin Sodium Extended 100 MG CAPSULE 200 MG PO (09:07)
[2022-11-01] MEDS: Magnesium Hydrox/Alum Hydrox 30 ML ORAL.SUSP PO (09:08)
[2022-11-01] MEDS: 0.9 % Sodium Chloride Flush 10 ML SYRINGE 5 ML IVFLUSH ×3 (09:12→20:22)
[2022-11-01] MEDS: Lidocaine 4 % Patch ADH..PATCH 1 PATCH TRANSDERMA (09:13)
[2022-11-01] MEDS: Nystatin Powder 15 GM BOTTLE 1 APPL TOPICAL (09:27)
--- NOTE | 2022-11-01 10:22 | HO.PSYCHPN ---
Subjective Subjective Date of Service: 11/01/22 Reason For Visit: Major depressive disorder Interim History: calm, cooperative. states he is feeling physically unwell, which he is attributing to the IV anitbx. no longer wanting discharge. interested in lactobacillus, none found on formulary. no complaints or requests presently. per staff, up at 0200. a bit irritable and labile around dietary limit setting at that time. pleasant and cooperative this morning. Mental Status Exam Mental Status Exam Narrative: calm, cooperative. hospital edilberto, disheveled appearance. cooperative with interview. no PMA/PMR. speech nml rate, amount, loudness, latency. thoughts linear and logical. affect constricted, normo-intense, non-labile. no SI/HI/AVH expressed. Diagnostics Vital Signs (24Hr): Vital Signs - 24 hr 10/31/22 18:00 10/31/22 21:00 11/01/22 09:00 Temperature 97.3 F 96.6 F L Pulse Rate 96 106 H 96 Respiratory Rate 16 16 18 Blood Pressure 180/79 H 130/97 H 121/71 Pulse Oximetry 94 96 94 Oxygen Delivery Method Room Air Room Air Room Air BMI result Body Mass Index 41.1 Labs 10/07/22 10:53 11/01/22 07:36 Labs: Laboratory Results - last 48 hr 10/30/22 10/30/22 10/30/22 11:33 14:33 16:24 Creatinine Estim Creat Clear Calc Estimated GFR POC Glucose 167 H 97 Random Vancomycin 14.4 L 10/30/22 10/31/22 10/31/22 22:01 06:46 07:38 Creatinine 0.88 Estim Creat Clear Calc 132.4 Estimated GFR > 60 POC Glucose 184 H 169 H Random Vancomycin 10/31/22 10/31/22 10/31/22 11:13 16:49 19:49 Creatinine Estim Creat Clear Calc Estimated GFR POC Glucose 156 H 184 H 145 H Random Vancomycin 11/01/22 11/01/22 07:36 07:47 Creatinine 0.85 Estim Creat Clear Calc 137.0 Estimated GFR > 60 POC Glucose 173 H Random Vancomycin Imaging Radiology Impressions: ITS Impressions Hand/Wrist X-Ray 10/07/22 22:07 IMPRESSION: Old healed fracture of the distal shaft of the fifth metacarpal bone and question old or healing fracture of the neck of the fourth metacarpal bone. No acute fracture. Foot X-Ray 10/11/22 12:56 IMPRESSION: RIGHT FOOT: Soft tissue ulceration at the distal aspect of the right great toe. Erosion/lucency through the distal tuft of the 1st distal phalanx, likely indicating osteomyelitis. LEFT FOOT: 1. Soft tissue ulceration along the distal/medial aspect of the great toe with circumferential soft tissue swelling. No radiopaque foreign body. No adjacent cortical erosion or periosteal reaction to suggest acute osteomyelitis, however, this may be occult on plain radiographs. 2. Severe osteoarthritis with prominent bony remodeling throughout the tibiotalar and midfoot joints, similar when compared to the prior radiographs from 2016. Foot X-Ray 10/11/22 12:56 IMPRESSION: RIGHT FOOT: Soft tissue ulceration at the distal aspect of the right great toe. Erosion/lucency through the distal tuft of the 1st distal phalanx, likely indicating osteomyelitis. LEFT FOOT: 1. Soft tissue ulceration along the distal/medial aspect of the great toe with circumferential soft tissue swelling. No radiopaque foreign body. No adjacent cortical erosion or periosteal reaction to suggest acute osteomyelitis, however, this may be occult on plain radiographs. 2. Severe osteoarthritis with prominent bony remodeling throughout the tibiotalar and midfoot joints, similar when compared to the prior radiographs from 2016. Duplex Scan Lower Extremity Artery 10/13/22 19:25 IMPRESSION: 1. No hemodynamically significant stenosis in the right lower extremity. 2. Incidental note is made of cardiac arrhythmia. Chest X-Ray 10/15/22 13:39 IMPRESSION: Right upper extremity PICC line tip projects over SVC. Medications Medications Current Medications Acetaminophen (Acetaminophen 325 Mg Tablet) 650 mg PO Q6H PRN PRN Reason: Headache/Pain Mild Scale (1-3) Last Admin: 10/30/22 20:27 Dose: 650 mg Al Hydroxide/Mg Hydroxide (Magnesium Hydrox/Alum Hydrox 30 Ml Oral.Susp) 30 ml PO Q6H PRN PRN Reason: Heartburn/Nausea Last Admin: 11/01/22 09:08 Dose: 30 ml Albuterol Sulfate (Albuterol Sulfate 90 Mcg 8 Gm Inhaler) 2 puff INHALE Q4H PRN PRN Reason: Shortness Of Breath Last Admin: 10/26/22 09:39 Dose: 2 puff Apixaban (Apixaban 5 Mg Tablet) 5 mg PO BID YOHAN Last Admin: 11/01/22 09:06 Dose: 5 mg Aripiprazole (Aripiprazole 5 Mg Tablet) 7.5 mg PO DAILY [facility] Last Admin: 11/01/22 09:07 Dose: 7.5 mg Atorvastatin Calcium (Atorvastatin Calcium 80 Mg Tablet) 80 mg PO DAILY [facility] Last Admin: 10/31/22 08:27 Dose: 80 mg Diltiazem HCl (Diltiazem Hcl Cd 120 Mg Cap.Er.Deg) 120 mg PO DAILY@11 [facility]; Protocol Last Admin: 10/31/22 11:37 Dose: 120 mg Doxycycline Monohydrate (Doxycycline Monohydrate 100 Mg Capsule) 100 mg PO Q12H [facility] Stop: 12/23/22 09:01 Duloxetine HCl (Duloxetine Hcl 60 Mg Capsule.) 60 mg PO BID [facility] Last Admin: 11/01/22 09:07 Dose: 60 mg Ferrous Sulfate (Ferrous Sulfate 324 Mg Tablet.) 324 mg PO MoWeFr@0900 [facility] Last Admin: 11/01/22 09:29 Dose: Not Given Gabapentin (Gabapentin 400 Mg Capsule) 400 mg PO QID [facility] Last Admin: 11/01/22 09:07 Dose: 400 mg Glucose (Glucose Gel 15 Gm Gel..Gram.) 15 gm PO Q15M PRN; Protocol PRN Reason: per Hypoglycemia Standing Ord. Hydroxyzine HCl (Hydroxyzine Hcl 25 Mg Tablet) 25 mg PO TID PRN PRN Reason: Anxiety Last Admin: 10/28/22 23:48 Dose: 25 mg Dextrose (D10) 250 mls @ 750 mls/hr IV Q15M PRN; Protocol PRN Reason: per Hypoglycemia Standing Ord. Vancomycin HCl 1,000 mg/ (Sodium Chloride) 270 mls @ 270 mls/hr IV Q12H [facility] Stop: 11/23/22 15:59 Last Infusion: 11/01/22 04:44 Dose: Infused Ibuprofen (Ibuprofen 600 Mg Tablet) 600 mg PO Q6H PRN PRN Reason: Pain, Moderate(Pain Scale 4-6) Last Admin: 10/22/22 22:08 Dose: 600 mg Insulin Human Lispro (Insulin Lispro 100 Unit/Ml 3 Ml Vial) 0 unit SUBCUT QIDACHS [facility]; Protocol Last Admin: 11/01/22 09:28 Dose: Not Given Lidocaine (Lidocaine 4 % Patch Adh..Patch) 1 patch TRANSDERMA DAILY [facility] Last Admin: 11/01/22 09:13 Dose: 1 patch Lorazepam (Lorazepam 1 Mg Tablet) 2 mg PO TID PRN PRN Reason: Anxiety Last Admin: 11/01/22 09:06 Dose: 2 mg Magnesium Hydroxide (Milk Of Magnesia 30 Ml Oral.Susp) 30 ml PO DAILY PRN PRN Reason: Constipation Last Admin: 10/08/22 15:52 Dose: 30 ml Melatonin (Melatonin 3 Mg Tablet) 3 mg PO BEDTIME PRN PRN Reason: Insomnia Last Admin: 10/30/22 20:29 Dose: 3 mg Metformin HCl (Metformin Hcl 1,000 Mg Tablet) 1,000 mg PO DAILY [facility] Last Admin: 11/01/22 09:07 Dose: 1,000 mg Metoprolol Succinate (Metoprolol Succinate Er 25 Mg Tab.Er.24h) 75 mg PO BID [facility]; Protocol Last Admin: 11/01/22 09:06 Dose: 75 mg Naproxen (Naproxen 500 Mg Tablet) 500 mg PO BID PRN PRN Reason: Knee pain Last Admin: 10/24/22 22:27 Dose: 500 mg Nitroglycerin (Nitroglycerin 0.4 Mg Tab.Subl) 0.4 mg SUBLINGUAL Q5M PRN PRN Reason: Chest Pain Nystatin (Nystatin Powder 15 Gm Bottle) 1 appl TOPICAL BID [facility]; Protocol Last Admin: 11/01/22 09:27 Dose: 1 appl Omeprazole (Omeprazole 20 Mg Capsule.Dr) 20 mg PO DAILY@0630 [facility] Last Admin: 11/01/22 05:06 Dose: 20 mg Ondansetron HCl (Ondansetron Odt 4 Mg Tab.Rapdis) 4 mg TRANSLINGU Q8H PRN PRN Reason: Nausea Phenytoin Sodium (Phenytoin Sodium Extended 100 Mg Capsule) 200 mg PO DAILY [facility] Last Admin: 11/01/22 09:07 Dose: 200 mg Phenytoin Sodium (Phenytoin Sodium Extended 100 Mg Capsule) 400 mg PO BEDTIME [facility] Last Admin: 10/31/22 19:55 Dose: 400 mg Quetiapine Fumarate (Quetiapine Fumarate 100 Mg Tablet) 100 mg PO BEDTIME PRN PRN Reason: Insomnia Last Admin: 11/01/22 02:02 Dose: 100 mg Quetiapine Fumarate (Quetiapine Fumarate 200 Mg Tablet) 200 mg PO BEDTIME [facility] Last Admin: 10/31/22 19:57 Dose: 200 mg Senna (Sennosides 8.6 Mg Tablet) 8.6 mg PO DAILY [facility] Last Admin: 11/01/22 09:30 Dose: Not Given Simethicone (Simethicone 80 Mg Tab.Chew) 80 mg PO TID PRN PRN Reason: Indigestion Sodium Chloride (0.9 % Sodium Chloride Flush 10 Ml Syringe) 5 ml IVFLUSH TID [facility] Last Admin: 11/01/22 09:12 Dose: 5 ml Torsemide (Torsemide 20 Mg Tablet) 40 mg PO DAILY [facility]; Protocol Last Admin: 11/01/22 09:07 Dose: 40 mg Trazodone HCl (Trazodone Hcl 50 Mg Tablet) 50 mg PO BEDTIME MRX1 PRN PRN Reason: Insomnia Last Admin: 10/28/22 23:48 Dose: 50 mg Trazodone HCl (Trazodone Hcl 50 Mg Tablet) 50 mg PO BEDTIME [facility] Last Admin: 10/31/22 21:56 Dose: 50 mg Allergies Allergies Allergy/AdvReac Type Severity Reaction Status Date / Time aspirin Allergy Severe OCCASIONAL Verified 04/08/22 14:18 RASH / TONGUE SWELLING, Hives, throat swellig bee pollen [BEE STINGS] Allergy Severe ANAPHYLAXIS Verified 04/08/22 14:18 Penicillins Allergy Severe ANAPHYLAXIS Verified 04/08/22 14:18 povidone-iodine [Betadine] Allergy Severe Redness of Verified 04/08/22 14:18 Skin soap [Betadine] Allergy Severe Redness of Verified 04/08/22 14:18 Skin spider venom [SPIDER BITES] Allergy Severe Hives Verified 04/08/22 14:18 amoxicillin Allergy Intermediate Hives Verified 04/08/22 14:18 clindamycin Allergy Mild RASH Verified 04/08/22 14:18 latex [Latex] Allergy Mild RASH Verified 04/08/22 14:18 shrimp Allergy Hives Verified 06/21/22 11:48 bupropion [From WELLBUTRIN] AdvReac Severe SEIZURES Verified 04/08/22 14:18 adhesive tape AdvReac Mild Rash Verified 04/14/22 15:55 Assessment & Plan Assessment & Plan (1) Atrial fibrillation with rapid ventricular response: Status: Acute Code(s): I48.91 - Unspecified atrial fibrillation Plan On checking pulse rate using his radial pulse, his rate is about 110/Min. On the recorded vital signs, some of the pulse rates are well within normal range but some of them are quite high up to 145/Min. With regard to the home regimen, listed to be on diltiazem ER 120 mg daily, metoprolol ER 70 mg daily and digoxin alternate days. Current meds however are diltiazem CD 1 20 mg daily with metoprolol at b.i.d. dosing. However, do not see digoxin. Echocardiogram from last year with LVEF of 55-60%. Normal right ventricular size and function. Mildly elevated right atrial pressure. IVC dilated. Other labs reviewed. Hemoglobin 9.7. White cell 6.2. Platelets 280. Potassium 3.5. Creatinine is 0.92. BUN is 18. High sensitivity troponins are well within normal range. Overall, atrial fibrillation with rapid rate could be from holding off on digoxin. Recommend starting it again. There is also discrepancy between what the patient is a send was reconciled. He states he is taking every day. Hence resume digoxin daily after loading dose and monitor EKGs periodically. Will follow as needed. Discussed with psychiatry as well as hospitalist service. Plan 1. Continue with Cymbalta 60 mg p.o. b.i.d. to target depression. At this moment the patient is not suicidal. 2. Continue with medical workout and treatment of osteomyelitis with IV and vancomycin. We will follow the recommendations of Medicine. 3. Waiting for placement 10/30: asking about oxycodone for knee pain, deferred to primary team's return on tuesday as this is a chronic problem and pt has been here for several weeks already. held BP meds in a.m. due to hypotension, otherwise no change to mgmt/plan. appears depressed, but stable. 10/31: stating he may ask to DC tue or tue to get home to get pain meds for knee. otherwise no complaints or requests. 11/01: feeling medically unwell, due to IV Antibx, he believes. no longer wanting discharge soon. interested in lactobacillus, none on formulary. continue current mgmt today. Reason for continued inpatient stay Substantial Risk for: inability to function and rapid decompensation Time Spent With Patient Time: Total time managing care of this patient today ____ minutes.
[2022-11-01 11:53] LABS: Glucose, Whole Blood 170 mg/dL (60-115)
[2022-11-01 12:04] VITALS: BP 133/82; PULSE 111
[2022-11-01] MEDS: dilTIAZem HCL CD 120 MG CAP.ER.DEG PO (12:06)
[2022-11-01] MEDS: Insulin Lispro 100 UNIT/ML 3 ML VIAL SUBCUT (12:07)
[2022-11-01 14:18] LABS: Vancomycin Trough 18.3 mcg/mL (10.0-20.0)
--- NOTE | 2022-11-01 14:23 | HE.PHANOTE ---
Vancomycin Dosing Level is 18.3, which is at predicted level. Will continue with current regimen, and get another level is 24 hours. Next level 11/02 @ 1400 Randy Brar[address]
--- NOTE | 2022-11-01 15:10 | PC.NURSE ---
Sage c/o stomach upset due to Vanco. Spoke with pharmacy and the hospital does not carry probiotics. Maalox given with some effectiveness. Will continue to monitor for stomach upset.
[2022-11-01 16:40] LABS: Glucose, Whole Blood 126 mg/dL (60-115)
[2022-11-01 18:00] VITALS: BP 113/66; PULSE 105; RESP 18; TEMP 37; O2SAT 94
[2022-11-01] MEDS: Phenytoin Sodium Extended 100 MG CAPSULE 400 MG PO (20:18)
[2022-11-01] MEDS: traZODone HCL 50 MG TABLET PO (20:18)
[2022-11-01] MEDS: QUEtiapine Fumarate 200 MG TABLET PO (20:20)
[2022-11-01 21:03] LABS: Glucose, Whole Blood 149 mg/dL (60-115)
--- NOTE | 2022-11-01 21:49 | PC.NURSE ---
Patient complained of dysuria, monument setter provider notified, new orderder for u/a cs obtained.
[2022-11-01 23:14] LABS: Appearance Urine Turbid; Color Urine Yellow; Glucose Urine UA Negative (Negative); Leukocyte Esterase Urine Trace (Negative); Nitrite Urine Negative (Negative); UMIC TRIGGER UACC YES; Urine Blood Negative (Negative); Urine Ketones Trace mg/dL (Negative); Urine Protein 30 (1+) mg/dL (Neg-Trace)
[2022-11-01 23:22] LABS: Bacteria Urine None Seen (None Seen); Hyaline Casts Urine >20 /LPF (0-2); RBC Urine 0-2 /HPF (0-2); UACC Culture Trigger YES
[2022-11-02] MEDS: LORazepam 1 MG TABLET 2 MG PO ×3 (00:27→21:37)
[2022-11-02] MEDS: hydrOXYzine HCL 25 MG TABLET PO (04:01)
[2022-11-02] MEDS: vancomycin HCL 1,000 MG in 0.9 % Sodium Chloride 250 ML 270 MG IV (04:01)
[2022-11-02] MEDS: Magnesium Hydrox/Alum Hydrox 30 ML ORAL.SUSP PO (04:39)
[2022-11-02] MEDS: Omeprazole 20 MG CAPSULE.DR PO (05:38)
[2022-11-02 07:59] LABS: Glucose, Whole Blood 160 mg/dL (60-115)
[2022-11-02 08:17] LABS: Creatinine Clr Calc Pharmacy 129.4; Estimated Glomerular Filt Rate > 60
[2022-11-02 08:38] VITALS: BP 133/83; PULSE 99; RESP 18; TEMP 36.4; O2SAT 98
[2022-11-02] MEDS: Insulin Lispro 100 UNIT/ML 3 ML VIAL SUBCUT ×3 (08:39→21:36)
[2022-11-02] MEDS: DULoxetine HCl 60 MG CAPSULE.DR PO ×2 (08:41→21:38)
[2022-11-02] MEDS: Gabapentin 400 MG CAPSULE PO ×4 (08:41→21:38)
[2022-11-02] MEDS: Apixaban 5 MG TABLET PO ×2 (08:41→21:38)
[2022-11-02] MEDS: Phenytoin Sodium Extended 100 MG CAPSULE 200 MG PO (08:41)
[2022-11-02] MEDS: Metoprolol Succinate ER 25 MG TAB.ER.24H 75 MG PO ×2 (08:42→21:38)
[2022-11-02] MEDS: Sennosides 8.6 MG TABLET PO (08:42)
[2022-11-02] MEDS: ARIPiprazole 5 MG TABLET 7.5 MG PO (08:43)
[2022-11-02] MEDS: metFORMIN HCl 1,000 MG TABLET 1000 MG PO (08:43)
[2022-11-02] MEDS: Torsemide 20 MG TABLET 40 MG PO (08:43)
[2022-11-02] MEDS: Atorvastatin Calcium 80 MG TABLET PO (08:43)
[2022-11-02] MEDS: 0.9 % Sodium Chloride Flush 10 ML SYRINGE 5 ML IVFLUSH ×3 (08:47→21:34)
[2022-11-02] MEDS: Lidocaine 4 % Patch ADH..PATCH 1 PATCH TRANSDERMA (09:35)
[2022-11-02] MEDS: Albuterol Sulfate 90 MCG 8 GM INHALER 2 PUFF INHALE (09:40)
--- NOTE | 2022-11-02 10:14 | P.PNPSI_ITS ---
Subjective Subjective Date of Service: 11/02/22 Reason For Visit: Major depressive disorder Subjective Notes: Conditional Voluntary Interim History: The nursing staff reported patient had been can, cooperative, pleasant. Yesterday he showered and she, no new issues. He slept 6 hours On interview the patient denies new symptoms, waiting for placement. The social contact worker reported that they have applied for 2 another halfway facilities. Waiting for placement. Mental Status Exam Mental Status Exam Patient Appearance: Appropriate Patient Orientation: Person, Place and Situation Level of Consciousness: Awake and Appropriate Patient Behavior: Appropriate and Passive Mood Description: Withdrawn Affect Description: Constricted Patient Cognition Impaired: No Ability to Follow Directions: Good Speech Pattern: Clear Hallucinations: None Delusions: Not Present Thought Process: Linear Thought Content: positive for [place] and positive for Poverty of Content Judgement: Fair Diagnostics Vital Signs (24Hr): Vital Signs - 24 hr 11/01/22 12:04 11/01/22 18:00 11/02/22 08:38 Temperature 98.6 F 97.5 F Pulse Rate 111 H 105 H 99 Respiratory Rate 18 18 Blood Pressure 133/82 113/66 133/83 Pulse Oximetry 94 98 Oxygen Delivery Method Room Air Room Air BMI result Body Mass Index 41.1 Labs 10/07/22 10:53 11/02/22 07:56 Labs: Laboratory Results - last 48 hr 10/31/22 10/31/22 10/31/22 11:13 16:49 19:49 Creatinine Estim Creat Clear Calc Estimated GFR POC Glucose 156 H 184 H 145 H Urine Color Urine Appearance Urine pH Ur Specific [place] Urine Protein Urine Glucose (UA) Urine Ketones Urine Blood Urine Nitrite Ur Leukocyte Esterase Urine RBC Urine WBC Ur Squamous Epith Cells Urine Bacteria Hyaline Casts Vancomycin Trough 11/01/22 11/01/22 11/01/22 07:36 07:47 11:49 Creatinine 0.85 Estim Creat Clear Calc 137.0 Estimated GFR > 60 POC Glucose 173 H 170 H Urine Color Urine Appearance Urine pH Ur Specific [place] Urine Protein Urine Glucose (UA) Urine Ketones Urine Blood Urine Nitrite Ur Leukocyte Esterase Urine RBC Urine WBC Ur Squamous Epith Cells Urine Bacteria Hyaline Casts Vancomycin Trough 11/01/22 11/01/22 11/01/22 13:54 16:35 20:16 Creatinine Estim Creat Clear Calc Estimated GFR POC Glucose 126 H 149 H Urine Color Urine Appearance Urine pH Ur Specific [place] Urine Protein Urine Glucose (UA) Urine Ketones Urine Blood Urine Nitrite Ur Leukocyte Esterase Urine RBC Urine WBC Ur Squamous Epith Cells Urine Bacteria Hyaline Casts Vancomycin Trough 18.3 11/01/22 11/02/22 11/02/22 22:30 07:48 07:56 Creatinine 0.90 Estim Creat Clear Calc 129.4 Estimated GFR > 60 POC Glucose 160 H Urine Color Yellow Urine Appearance Turbid Urine pH 6.0 Ur Specific [place] 1.020 Urine Protein 30 (1+) H Urine Glucose (UA) Negative Urine Ketones Trace Urine Blood Negative Urine Nitrite Negative Ur Leukocyte Esterase Trace H Urine RBC 0-2 Urine WBC 6-10 H Ur Squamous Epith Cells 11-20 Urine Bacteria None Seen Hyaline Casts >20 Vancomycin Trough Imaging Radiology Impressions: ITS Impressions Hand/Wrist X-Ray 10/07/22 22:07 IMPRESSION: Old healed fracture of the distal shaft of the fifth metacarpal bone and question old or healing fracture of the neck of the fourth metacarpal bone. No acute fracture. Foot X-Ray 10/11/22 12:56 IMPRESSION: RIGHT FOOT: Soft tissue ulceration at the distal aspect of the right great toe. Erosion/lucency through the distal tuft of the 1st distal phalanx, likely indicating osteomyelitis. LEFT FOOT: 1. Soft tissue ulceration along the distal/medial aspect of the great toe with circumferential soft tissue swelling. No radiopaque foreign body. No adjacent cortical erosion or periosteal reaction to suggest acute osteomyelitis, however, this may be occult on plain radiographs. 2. Severe osteoarthritis with prominent bony remodeling throughout the tibiotalar and midfoot joints, similar when compared to the prior radiographs from 2016. Foot X-Ray 10/11/22 12:56 IMPRESSION: RIGHT FOOT: Soft tissue ulceration at the distal aspect of the right great toe. Erosion/lucency through the distal tuft of the 1st distal phalanx, likely indicating osteomyelitis. LEFT FOOT: 1. Soft tissue ulceration along the distal/medial aspect of the great toe with circumferential soft tissue swelling. No radiopaque foreign body. No adjacent cortical erosion or periosteal reaction to suggest acute osteomyelitis, however, this may be occult on plain radiographs. 2. Severe osteoarthritis with prominent bony remodeling throughout the tibiotalar and midfoot joints, similar when compared to the prior radiographs from 2016. Duplex Scan Lower Extremity Artery 10/13/22 19:25 IMPRESSION: 1. No hemodynamically significant stenosis in the right lower extremity. 2. Incidental note is made of cardiac arrhythmia. Chest X-Ray 10/15/22 13:39 IMPRESSION: Right upper extremity PICC line tip projects over SVC. Medications Medications Current Medications Acetaminophen (Acetaminophen 325 Mg Tablet) 650 mg PO Q6H PRN PRN Reason: Headache/Pain Mild Scale (1-3) Last Admin: 10/30/22 20:27 Dose: 650 mg Al Hydroxide/Mg Hydroxide (Magnesium Hydrox/Alum Hydrox 30 Ml Oral.Susp) 30 ml PO Q6H PRN PRN Reason: Heartburn/Nausea Last Admin: 11/02/22 04:39 Dose: 30 ml Albuterol Sulfate (Albuterol Sulfate 90 Mcg 8 Gm Inhaler) 2 puff INHALE Q4H PRN PRN Reason: Shortness Of Breath Last Admin: 11/02/22 09:40 Dose: 2 puff Apixaban (Apixaban 5 Mg Tablet) 5 mg PO BID [facility] Last Admin: 11/02/22 08:41 Dose: 5 mg Aripiprazole (Aripiprazole 5 Mg Tablet) 7.5 mg PO DAILY [facility] Last Admin: 11/02/22 08:43 Dose: 7.5 mg Atorvastatin Calcium (Atorvastatin Calcium 80 Mg Tablet) 80 mg PO DAILY [facility] Last Admin: 11/02/22 08:43 Dose: 80 mg Diltiazem HCl (Diltiazem Hcl Cd 120 Mg Cap.Er.Deg) 120 mg PO DAILY@11 [facility]; Protocol Last Admin: 11/01/22 12:06 Dose: 120 mg Doxycycline Monohydrate (Doxycycline Monohydrate 100 Mg Capsule) 100 mg PO Q12H [facility] Stop: 12/23/22 09:01 Duloxetine HCl (Duloxetine Hcl 60 Mg Capsule.) 60 mg PO BID [facility] Last Admin: 11/02/22 08:41 Dose: 60 mg Ferrous Sulfate (Ferrous Sulfate 324 Mg Tablet.) 324 mg PO MoWeFr@0900 [facility] Last Admin: 11/01/22 09:29 Dose: Not Given Gabapentin (Gabapentin 400 Mg Capsule) 400 mg PO QID [facility] Last Admin: 11/02/22 08:41 Dose: 400 mg Glucose (Glucose Gel 15 Gm Gel..Gram.) 15 gm PO Q15M PRN; Protocol PRN Reason: per Hypoglycemia Standing Ord. Hydroxyzine HCl (Hydroxyzine Hcl 25 Mg Tablet) 25 mg PO TID PRN PRN Reason: Anxiety Last Admin: 11/02/22 04:01 Dose: 25 mg Dextrose (D10) 250 mls @ 750 mls/hr IV Q15M PRN; Protocol PRN Reason: per Hypoglycemia Standing Ord. Vancomycin HCl 1,000 mg/ (Sodium Chloride) 270 mls @ 270 mls/hr IV Q12H [facility] Stop: 11/23/22 15:59 Last Infusion: 11/02/22 05:12 Dose: Infused Ibuprofen (Ibuprofen 600 Mg Tablet) 600 mg PO Q6H PRN PRN Reason: Pain, Moderate(Pain Scale 4-6) Last Admin: 10/22/22 22:08 Dose: 600 mg Insulin Human Lispro (Insulin Lispro 100 Unit/Ml 3 Ml Vial) 0 unit SUBCUT QIDACHS [facility]; Protocol Last Admin: 11/02/22 08:39 Dose: 2 unit Lidocaine (Lidocaine 4 % Patch Adh..Patch) 1 patch TRANSDERMA DAILY [facility] Last Admin: 11/02/22 09:35 Dose: 1 patch Lorazepam (Lorazepam 1 Mg Tablet) 2 mg PO TID PRN PRN Reason: Anxiety Last Admin: 11/02/22 09:16 Dose: 2 mg Magnesium Hydroxide (Milk Of Magnesia 30 Ml Oral.Susp) 30 ml PO DAILY PRN PRN Reason: Constipation Last Admin: 10/08/22 15:52 Dose: 30 ml Melatonin (Melatonin 3 Mg Tablet) 3 mg PO BEDTIME PRN PRN Reason: Insomnia Last Admin: 10/30/22 20:29 Dose: 3 mg Metformin HCl (Metformin Hcl 1,000 Mg Tablet) 1,000 mg PO DAILY [facility] Last Admin: 11/02/22 08:43 Dose: 1,000 mg Metoprolol Succinate (Metoprolol Succinate Er 25 Mg Tab.Er.24h) 75 mg PO BID [facility]; Protocol Last Admin: 11/02/22 08:42 Dose: 75 mg Naproxen (Naproxen 500 Mg Tablet) 500 mg PO BID PRN PRN Reason: Knee pain Last Admin: 10/24/22 22:27 Dose: 500 mg Nitroglycerin (Nitroglycerin 0.4 Mg Tab.Subl) 0.4 mg SUBLINGUAL Q5M PRN PRN Reason: Chest Pain Nystatin (Nystatin Powder 15 Gm Bottle) 1 appl TOPICAL BID [facility]; Protocol Last Admin: 11/02/22 09:37 Dose: Not Given Omeprazole (Omeprazole 20 Mg Capsule.Dr) 20 mg PO DAILY@0630 [facility] Last Admin: 11/02/22 05:38 Dose: 20 mg Ondansetron HCl (Ondansetron Odt 4 Mg Tab.Rapdis) 4 mg TRANSLINGU Q8H PRN PRN Reason: Nausea Phenytoin Sodium (Phenytoin Sodium Extended 100 Mg Capsule) 200 mg PO DAILY [facility] Last Admin: 11/02/22 08:41 Dose: 200 mg Phenytoin Sodium (Phenytoin Sodium Extended 100 Mg Capsule) 400 mg PO BEDTIME [facility] Last Admin: 11/01/22 20:18 Dose: 400 mg Quetiapine Fumarate (Quetiapine Fumarate 100 Mg Tablet) 100 mg PO BEDTIME PRN PRN Reason: Insomnia Last Admin: 11/01/22 02:02 Dose: 100 mg Quetiapine Fumarate (Quetiapine Fumarate 200 Mg Tablet) 200 mg PO BEDTIME [facility] Last Admin: 11/01/22 20:20 Dose: 200 mg Senna (Sennosides 8.6 Mg Tablet) 8.6 mg PO DAILY [facility] Last Admin: 11/02/22 08:42 Dose: 8.6 mg Simethicone (Simethicone 80 Mg Tab.Chew) 80 mg PO TID PRN PRN Reason: Indigestion Sodium Chloride (0.9 % Sodium Chloride Flush 10 Ml Syringe) 5 ml IVFLUSH TID [facility] Last Admin: 11/02/22 08:47 Dose: 5 ml Torsemide (Torsemide 20 Mg Tablet) 40 mg PO DAILY [facility]; Protocol Last Admin: 11/02/22 08:43 Dose: 40 mg Trazodone HCl (Trazodone Hcl 50 Mg Tablet) 50 mg PO BEDTIME MRX1 PRN PRN Reason: Insomnia Last Admin: 10/28/22 23:48 Dose: 50 mg Trazodone HCl (Trazodone Hcl 50 Mg Tablet) 50 mg PO BEDTIME [facility] Last Admin: 11/01/22 20:18 Dose: 50 mg Allergies Allergies Allergy/AdvReac Type Severity Reaction Status Date / Time aspirin Allergy Severe OCCASIONAL Verified 04/08/22 14:18 RASH / TONGUE SWELLING, Hives, throat swellig bee pollen [BEE STINGS] Allergy Severe ANAPHYLAXIS Verified 04/08/22 14:18 Penicillins Allergy Severe ANAPHYLAXIS Verified 04/08/22 14:18 povidone-iodine [Betadine] Allergy Severe Redness of Verified 04/08/22 14:18 Skin soap [Betadine] Allergy Severe Redness of Verified 04/08/22 14:18 Skin spider venom [SPIDER BITES] Allergy Severe Hives Verified 04/08/22 14:18 amoxicillin Allergy Intermediate Hives Verified 04/08/22 14:18 clindamycin Allergy Mild RASH Verified 04/08/22 14:18 latex [Latex] Allergy Mild RASH Verified 04/08/22 14:18 shrimp Allergy Hives Verified 06/21/22 11:48 bupropion [From WELLBUTRIN] AdvReac Severe SEIZURES Verified 04/08/22 14:18 adhesive tape AdvReac Mild Rash Verified 04/14/22 15:55 Assessment & Plan Assessment & Plan (1) Atrial fibrillation with rapid ventricular response: Status: Acute Code(s): I48.91 - Unspecified atrial fibrillation Plan On checking pulse rate using his radial pulse, his rate is about 110/Min. On the recorded vital signs, some of the pulse rates are well within normal range but some of them are quite high up to 145/Min. With regard to the home regimen, listed to be on diltiazem ER 120 mg daily, metoprolol ER 70 mg daily and digoxin alternate days. Current meds however are diltiazem CD 1 20 mg daily with metoprolol at b.i.d. dosing. However, do not see digoxin. Echocardiogram from last year with LVEF of 55-60%. Normal right ventricular size and function. Mildly elevated right atrial pressure. IVC dilated. Other labs reviewed. Hemoglobin 9.7. White cell 6.2. Platelets 280. Potassium 3.5. Creatinine is 0.92. BUN is 18. High sensitivity troponins are well within normal range. Overall, atrial fibrillation with rapid rate could be from holding off on digoxin. Recommend starting it again. There is also discrepancy between what the patient is a send was reconciled. He states he is taking every day. Hence resume digoxin daily after loading dose and monitor EKGs periodically. Will follow as needed. Discussed with psychiatry as well as hospitalist service. Plan 1. Continue with Cymbalta 60 mg p.o. b.i.d. to target depression. At this moment the patient is not suicidal. 2. Continue with medical workout and treatment of osteomyelitis with IV and vancomycin. We will follow the recommendations of Medicine. 3. Waiting for placement 10/30: asking about oxycodone for knee pain, deferred to primary team's return on tuesday as this is a chronic problem and pt has been here for several weeks already. held BP meds in a.m. due to hypotension, otherwise no change to mgmt/plan. appears depressed, but stable. 10/31: stating he may ask to DC tue or tue to get home to get pain meds for knee. otherwise no complaints or requests. 11/01: feeling medically unwell, due to IV Antibx, he believes. no longer wanting discharge soon. interested in lactobacillus, none on formulary. continue current mgmt today. 11/02 no changes in his status waiting for placement Reason for continued inpatient stay Substantial Risk for: inability to function, rapid decompensation and med/psych decompensation Time Spent With Patient Time: Total time managing care of this patient today __20__ minutes.
[2022-11-02 11:29] LABS: Glucose, Whole Blood 141 mg/dL (60-115)
[2022-11-02 14:00] VITALS: BP 133/78; PULSE 108
[2022-11-02] MEDS: dilTIAZem HCL CD 120 MG CAP.ER.DEG PO (14:01)
[2022-11-02 14:21] VITALS: BP 133/78; PULSE 108
[2022-11-02 15:02] LABS: Vancomycin Trough 18.8 mcg/mL (10.0-20.0)
[2022-11-02 16:15] LABS: Glucose, Whole Blood 183 mg/dL (60-115)
[2022-11-02] MEDS: vancomycin HCL 1,000 MG in 0.9 % Sodium Chloride 250 ML 250 MG IV (16:35)
[2022-11-02 18:00] VITALS: BP 124/59; PULSE 106; RESP 18; TEMP 37.1; O2SAT 94
[2022-11-02 20:08] LABS: Glucose, Whole Blood 171 mg/dL (60-115)
[2022-11-02] MEDS: Phenytoin Sodium Extended 100 MG CAPSULE 400 MG PO (21:36)
[2022-11-02] MEDS: QUEtiapine Fumarate 200 MG TABLET PO (21:37)
[2022-11-02] MEDS: Melatonin 3 MG TABLET PO (21:37)
[2022-11-02] MEDS: traZODone HCL 50 MG TABLET PO (21:38)
[2022-11-03] MEDS: vancomycin HCL 1,000 MG in 0.9 % Sodium Chloride 250 ML 250 MG IV (04:33)
[2022-11-03] MEDS: Omeprazole 20 MG CAPSULE.DR PO (06:04)
[2022-11-03 07:46] LABS: Glucose, Whole Blood 179 mg/dL (60-115)
[2022-11-03 08:41] LABS: Creatinine Clr Calc Pharmacy 133.9; Estimated Glomerular Filt Rate > 60
[2022-11-03 08:48] VITALS: BP 121/63; PULSE 101; RESP 18; TEMP 36.7; O2SAT 93
[2022-11-03] MEDS: Insulin Lispro 100 UNIT/ML 3 ML VIAL SUBCUT ×2 (08:49→11:45)
[2022-11-03] MEDS: metFORMIN HCl 1,000 MG TABLET 1000 MG PO (08:50)
[2022-11-03] MEDS: Metoprolol Succinate ER 25 MG TAB.ER.24H 75 MG PO ×2 (08:50→20:03)
[2022-11-03] MEDS: DULoxetine HCl 60 MG CAPSULE.DR PO ×2 (08:50→20:03)
[2022-11-03] MEDS: Gabapentin 400 MG CAPSULE PO ×3 (08:50→20:03)
[2022-11-03] MEDS: Atorvastatin Calcium 80 MG TABLET PO (08:51)
[2022-11-03] MEDS: Phenytoin Sodium Extended 100 MG CAPSULE 200 MG PO (08:51)
[2022-11-03] MEDS: Torsemide 20 MG TABLET 40 MG PO (08:51)
[2022-11-03] MEDS: Apixaban 5 MG TABLET PO ×2 (08:51→20:02)
[2022-11-03] MEDS: ARIPiprazole 5 MG TABLET 7.5 MG PO (08:52)
[2022-11-03] MEDS: Lidocaine 4 % Patch ADH..PATCH 1 PATCH TRANSDERMA (08:53)
[2022-11-03] MEDS: LORazepam 1 MG TABLET 2 MG PO ×2 (09:02→20:03)
[2022-11-03] MEDS: 0.9 % Sodium Chloride Flush 10 ML SYRINGE 5 ML IVFLUSH ×3 (09:02→20:13)
[2022-11-03] MEDS: Nystatin Powder 15 GM BOTTLE 1 APPL TOPICAL ×2 (11:23→20:10)
[2022-11-03 11:43] LABS: Glucose, Whole Blood 204 mg/dL (60-115)
[2022-11-03 11:46] VITALS: BP 132/74; PULSE 110
[2022-11-03] MEDS: dilTIAZem HCL CD 120 MG CAP.ER.DEG PO (11:47)
--- NOTE | 2022-11-03 12:11 | P.PNPSI_ITS ---
Subjective Subjective Date of Service: 11/03/22 Reason For Visit: Major depressive disorder Subjective Notes: Conditional Voluntary Interim History: The nursing staff reported the patient was appropriate pleasant cooperative but not willing to engage in groups. He slept 6 hours. The school social worker reported that he had been referred to short subacute rehab at [facility] and we are waiting for the response. On interview the patient denies new symptoms I asked and speech and swallow consult since he choked. Mental Status Exam Mental Status Exam Patient Appearance: Well Grooomed Patient Orientation: Person and Situation Level of Consciousness: Awake and Appropriate Patient Behavior: Guarded and Passive Mood Description: Withdrawn Affect Description: Constricted Patient Cognition Impaired: Yes Ability to Follow Directions: Good Speech Pattern: Clear Hallucinations: None Delusions: Not Present Thought Process: Linear Thought Content: positive for Circumstantial Judgement: Fair Diagnostics Vital Signs (24Hr): Vital Signs - 24 hr 11/02/22 14:00 11/02/22 14:21 11/02/22 18:00 Temperature 98.7 F Pulse Rate 108 H 108 H 106 H Respiratory Rate 18 Blood Pressure 133/78 133/78 124/59 L Pulse Oximetry 94 Oxygen Delivery Method Room Air 11/03/22 08:48 11/03/22 11:46 Temperature 98.1 F Pulse Rate 101 H 110 H Respiratory Rate 18 Blood Pressure 121/63 132/74 Pulse Oximetry 93 Oxygen Delivery Method Room Air BMI result Body Mass Index 41.1 Labs 10/07/22 10:53 11/03/22 08:14 Labs: Laboratory Results - last 48 hr 11/01/22 11/01/22 11/01/22 13:54 16:35 20:16 Creatinine Estim Creat Clear Calc Estimated GFR POC Glucose 126 H 149 H Urine Color Urine Appearance Urine pH Ur Specific Kiron Urine Protein Urine Glucose (UA) Urine Ketones Urine Blood Urine Nitrite Ur Leukocyte Esterase Urine RBC Urine WBC Ur Squamous Epith Cells Urine Bacteria Hyaline Casts Vancomycin Trough 18.3 11/01/22 11/02/22 11/02/22 22:30 07:48 07:56 Creatinine 0.90 Estim Creat Clear Calc 129.4 Estimated GFR > 60 POC Glucose 160 H Urine Color Yellow Urine Appearance Turbid Urine pH 6.0 Ur Specific Kiron 1.020 Urine Protein 30 (1+) H Urine Glucose (UA) Negative Urine Ketones Trace Urine Blood Negative Urine Nitrite Negative Ur Leukocyte Esterase Trace H Urine RBC 0-2 Urine WBC 6-10 H Ur Squamous Epith Cells 11-20 Urine Bacteria None Seen Hyaline Casts >20 Vancomycin Trough 11/02/22 11/02/22 11/02/22 11:16 14:30 16:07 Creatinine Estim Creat Clear Calc Estimated GFR POC Glucose 141 H 183 H Urine Color Urine Appearance Urine pH Ur Specific Kiron Urine Protein Urine Glucose (UA) Urine Ketones Urine Blood Urine Nitrite Ur Leukocyte Esterase Urine RBC Urine WBC Ur Squamous Epith Cells Urine Bacteria Hyaline Casts Vancomycin Trough 18.8 11/02/22 11/03/22 11/03/22 19:57 07:35 08:14 Creatinine 0.87 Estim Creat Clear Calc 133.9 Estimated GFR > 60 POC Glucose 171 H 179 H Urine Color Urine Appearance Urine pH Ur Specific Kiron Urine Protein Urine Glucose (UA) Urine Ketones Urine Blood Urine Nitrite Ur Leukocyte Esterase Urine RBC Urine WBC Ur Squamous Epith Cells Urine Bacteria Hyaline Casts Vancomycin Trough 11/03/22 11:37 Creatinine Estim Creat Clear Calc Estimated GFR POC Glucose 204 H Urine Color Urine Appearance Urine pH Ur Specific Kiron Urine Protein Urine Glucose (UA) Urine Ketones Urine Blood Urine Nitrite Ur Leukocyte Esterase Urine RBC Urine WBC Ur Squamous Epith Cells Urine Bacteria Hyaline Casts Vancomycin Trough Imaging Radiology Impressions: ITS Impressions Hand/Wrist X-Ray 10/07/22 22:07 IMPRESSION: Old healed fracture of the distal shaft of the fifth metacarpal bone and question old or healing fracture of the neck of the fourth metacarpal bone. No acute fracture. Foot X-Ray 10/11/22 12:56 IMPRESSION: RIGHT FOOT: Soft tissue ulceration at the distal aspect of the right great toe. Erosion/lucency through the distal tuft of the 1st distal phalanx, likely indicating osteomyelitis. LEFT FOOT: 1. Soft tissue ulceration along the distal/medial aspect of the great toe with circumferential soft tissue swelling. No radiopaque foreign body. No adjacent cortical erosion or periosteal reaction to suggest acute osteomyelitis, however, this may be occult on plain radiographs. 2. Severe osteoarthritis with prominent bony remodeling throughout the tibiotalar and midfoot joints, similar when compared to the prior radiographs from 2016. Foot X-Ray 10/11/22 12:56 IMPRESSION: RIGHT FOOT: Soft tissue ulceration at the distal aspect of the right great toe. Erosion/lucency through the distal tuft of the 1st distal phalanx, likely indicating osteomyelitis. LEFT FOOT: 1. Soft tissue ulceration along the distal/medial aspect of the great toe with circumferential soft tissue swelling. No radiopaque foreign body. No adjacent cortical erosion or periosteal reaction to suggest acute osteomyelitis, however, this may be occult on plain radiographs. 2. Severe osteoarthritis with prominent bony remodeling throughout the tibiotalar and midfoot joints, similar when compared to the prior radiographs from 2016. Duplex Scan Lower Extremity Artery 10/13/22 19:25 IMPRESSION: 1. No hemodynamically significant stenosis in the right lower extremity. 2. Incidental note is made of cardiac arrhythmia. Chest X-Ray 10/15/22 13:39 IMPRESSION: Right upper extremity PICC line tip projects over SVC. Medications Medications Current Medications Acetaminophen (Acetaminophen 325 Mg Tablet) 650 mg PO Q6H PRN PRN Reason: Headache/Pain Mild Scale (1-3) Last Admin: 10/30/22 20:27 Dose: 650 mg Al Hydroxide/Mg Hydroxide (Magnesium Hydrox/Alum Hydrox 30 Ml Oral.Susp) 30 ml PO Q6H PRN PRN Reason: Heartburn/Nausea Last Admin: 11/02/22 04:39 Dose: 30 ml Albuterol Sulfate (Albuterol Sulfate 90 Mcg 8 Gm Inhaler) 2 puff INHALE Q4H PRN PRN Reason: Shortness Of Breath Last Admin: 11/02/22 09:40 Dose: 2 puff Apixaban (Apixaban 5 Mg Tablet) 5 mg PO BID [facility] Last Admin: 11/03/22 08:51 Dose: 5 mg Aripiprazole (Aripiprazole 5 Mg Tablet) 7.5 mg PO DAILY [facility] Last Admin: 11/03/22 08:52 Dose: 7.5 mg Atorvastatin Calcium (Atorvastatin Calcium 80 Mg Tablet) 80 mg PO DAILY [facility] Last Admin: 11/03/22 08:51 Dose: 80 mg Diltiazem HCl (Diltiazem Hcl Cd 120 Mg Cap.Er.Deg) 120 mg PO DAILY@11 [facility]; Protocol Last Admin: 11/03/22 11:47 Dose: 120 mg Doxycycline Monohydrate (Doxycycline Monohydrate 100 Mg Capsule) 100 mg PO Q12H [facility] Stop: 12/23/22 09:01 Duloxetine HCl (Duloxetine Hcl 60 Mg Capsule.Dr) 60 mg PO BID [facility] Last Admin: 11/03/22 08:50 Dose: 60 mg Ferrous Sulfate (Ferrous Sulfate 324 Mg Tablet.Dr) 324 mg PO MoWeFr@0900 [facility] Last Admin: 11/03/22 08:51 Dose: Not Given Gabapentin (Gabapentin 400 Mg Capsule) 400 mg PO QID [facility] Last Admin: 11/03/22 11:47 Dose: 400 mg Glucose (Glucose Gel 15 Gm Gel..Gram.) 15 gm PO Q15M PRN; Protocol PRN Reason: per Hypoglycemia Standing Ord. Hydroxyzine HCl (Hydroxyzine Hcl 25 Mg Tablet) 25 mg PO TID PRN PRN Reason: Anxiety Last Admin: 11/02/22 04:01 Dose: 25 mg Dextrose (D10) 250 mls @ 750 mls/hr IV Q15M PRN; Protocol PRN Reason: per Hypoglycemia Standing Ord. Vancomycin HCl 1,000 mg/ (Sodium Chloride) 270 mls @ 270 mls/hr IV Q12H [facility] Stop: 11/23/22 15:59 Last Infusion: 11/03/22 05:38 Dose: Infused Ibuprofen (Ibuprofen 600 Mg Tablet) 600 mg PO Q6H PRN PRN Reason: Pain, Moderate(Pain Scale 4-6) Last Admin: 10/22/22 22:08 Dose: 600 mg Insulin Human Lispro (Insulin Lispro 100 Unit/Ml 3 Ml Vial) 0 unit SUBCUT QIDACHS [facility]; Protocol Last Admin: 11/03/22 11:45 Dose: 4 unit Lidocaine (Lidocaine 4 % Patch Adh..Patch) 1 patch TRANSDERMA DAILY [facility] Last Admin: 11/03/22 08:53 Dose: 1 patch Lorazepam (Lorazepam 1 Mg Tablet) 2 mg PO TID PRN PRN Reason: Anxiety Last Admin: 11/03/22 09:02 Dose: 2 mg Magnesium Hydroxide (Milk Of Magnesia 30 Ml Oral.Susp) 30 ml PO DAILY PRN PRN Reason: Constipation Last Admin: 10/08/22 15:52 Dose: 30 ml Melatonin (Melatonin 3 Mg Tablet) 3 mg PO BEDTIME PRN PRN Reason: Insomnia Last Admin: 11/02/22 21:37 Dose: 3 mg Metformin HCl (Metformin Hcl 1,000 Mg Tablet) 1,000 mg PO DAILY [facility] Last Admin: 11/03/22 08:50 Dose: 1,000 mg Metoprolol Succinate (Metoprolol Succinate Er 25 Mg Tab.Er.24h) 75 mg PO BID [facility]; Protocol Last Admin: 11/03/22 08:50 Dose: 75 mg Naproxen (Naproxen 500 Mg Tablet) 500 mg PO BID PRN PRN Reason: Knee pain Last Admin: 10/24/22 22:27 Dose: 500 mg Nitroglycerin (Nitroglycerin 0.4 Mg Tab.Subl) 0.4 mg SUBLINGUAL Q5M PRN PRN Reason: Chest Pain Nystatin (Nystatin Powder 15 Gm Bottle) 1 appl TOPICAL BID [facility]; Protocol Last Admin: 11/03/22 11:23 Dose: 1 appl Omeprazole (Omeprazole 20 Mg Capsule.Dr) 20 mg PO DAILY@0630 [facility] Last Admin: 11/03/22 06:04 Dose: 20 mg Ondansetron HCl (Ondansetron Odt 4 Mg Tab.Rapdis) 4 mg TRANSLINGU Q8H PRN PRN Reason: Nausea Phenytoin Sodium (Phenytoin Sodium Extended 100 Mg Capsule) 200 mg PO DAILY [facility] Last Admin: 11/03/22 08:51 Dose: 200 mg Phenytoin Sodium (Phenytoin Sodium Extended 100 Mg Capsule) 400 mg PO BEDTIME [facility] Last Admin: 11/02/22 21:36 Dose: 400 mg Quetiapine Fumarate (Quetiapine Fumarate 100 Mg Tablet) 100 mg PO BEDTIME PRN PRN Reason: Insomnia Last Admin: 11/01/22 02:02 Dose: 100 mg Quetiapine Fumarate (Quetiapine Fumarate 200 Mg Tablet) 200 mg PO BEDTIME [facility] Last Admin: 11/02/22 21:37 Dose: 200 mg Senna (Sennosides 8.6 Mg Tablet) 8.6 mg PO DAILY [facility] Last Admin: 11/03/22 08:54 Dose: Not Given Simethicone (Simethicone 80 Mg Tab.Chew) 80 mg PO TID PRN PRN Reason: Indigestion Sodium Chloride (0.9 % Sodium Chloride Flush 10 Ml Syringe) 5 ml IVFLUSH TID [facility] Last Admin: 11/03/22 09:02 Dose: 5 ml Torsemide (Torsemide 20 Mg Tablet) 40 mg PO DAILY [facility]; Protocol Last Admin: 11/03/22 08:51 Dose: 40 mg Trazodone HCl (Trazodone Hcl 50 Mg Tablet) 50 mg PO BEDTIME MRX1 PRN PRN Reason: Insomnia Last Admin: 10/28/22 23:48 Dose: 50 mg Trazodone HCl (Trazodone Hcl 50 Mg Tablet) 50 mg PO BEDTIME [facility] Last Admin: 11/02/22 21:38 Dose: 50 mg Allergies Allergies Allergy/AdvReac Type Severity Reaction Status Date / Time aspirin Allergy Severe OCCASIONAL Verified 04/08/22 14:18 RASH / TONGUE SWELLING, Hives, throat swellig bee pollen [BEE STINGS] Allergy Severe ANAPHYLAXIS Verified 04/08/22 14:18 Penicillins Allergy Severe ANAPHYLAXIS Verified 04/08/22 14:18 povidone-iodine [Betadine] Allergy Severe Redness of Verified 04/08/22 14:18 Skin soap [Betadine] Allergy Severe Redness of Verified 04/08/22 14:18 Skin spider venom [SPIDER BITES] Allergy Severe Hives Verified 04/08/22 14:18 amoxicillin Allergy Intermediate Hives Verified 04/08/22 14:18 clindamycin Allergy Mild RASH Verified 04/08/22 14:18 latex [Latex] Allergy Mild RASH Verified 04/08/22 14:18 shrimp Allergy Hives Verified 06/21/22 11:48 bupropion [From WELLBUTRIN] AdvReac Severe SEIZURES Verified 04/08/22 14:18 adhesive tape AdvReac Mild Rash Verified 04/14/22 15:55 Assessment & Plan Assessment & Plan (1) Atrial fibrillation with rapid ventricular response: Status: Acute Code(s): I48.91 - Unspecified atrial fibrillation Plan On checking pulse rate using his radial pulse, his rate is about 110/Min. On the recorded vital signs, some of the pulse rates are well within normal range but some of them are quite high up to 145/Min. With regard to the home regimen, listed to be on diltiazem ER 120 mg daily, metoprolol ER 70 mg daily and digoxin alternate days. Current meds however are diltiazem CD 1 20 mg daily with metoprolol at b.i.d. dosing. However, do not see digoxin. Echocardiogram from last year with LVEF of 55-60%. Normal right ventricular size and function. Mildly elevated right atrial pressure. IVC dilated. Other labs reviewed. Hemoglobin 9.7. White cell 6.2. Platelets 280. Potassium 3.5. Creatinine is 0.92. BUN is 18. High sensitivity troponins are well within normal range. Overall, atrial fibrillation with rapid rate could be from holding off on digoxin. Recommend starting it again. There is also discrepancy between what the patient is a send was reconciled. He states he is taking every day. Hence resume digoxin daily after loading dose and monitor EKGs periodically. Will follow as needed. Discussed with psychiatry as well as hospitalist service. Plan 1. Continue with Cymbalta 60 mg p.o. b.i.d. to target depression. At this moment the patient is not suicidal. 2. Continue with medical workout and treatment of osteomyelitis with IV and vancomycin. We will follow the recommendations of Medicine. 3. Waiting for placement 10/30: asking about oxycodone for knee pain, deferred to primary team's return on tuesday as this is a chronic problem and pt has been here for several weeks already. held BP meds in a.m. due to hypotension, otherwise no change to mgmt/plan. appears depressed, but stable. 10/31: stating he may ask to DC tue or tue to get home to get pain meds for knee. otherwise no complaints or requests. 11/01: feeling medically unwell, due to IV Antibx, he believes. no longer wanting discharge soon. interested in lactobacillus, none on formulary. continue current mgmt today. 11/02 no changes in his status waiting for placement 11/03 no changes waiting for placement. Speech and swallow consult order Reason for continued inpatient stay Substantial Risk for: inability to function, rapid decompensation and med/psych decompensation Time Spent With Patient Time: Total time managing care of this patient today __20__ minutes.
--- NOTE | 2022-11-03 13:59 | MHC.SL.SWA ---
Risk of Aspiration Due to: History of Pneumonia Dysphasia Diet Status: No change Liquid Consistency and Strategies for Safe Swallow: Liquid Intake Recommendation: Thin Liquid Intake Strategies: Small Sips Solid Food Consistency: Dietary Recommendations: Regular Additional Modifications to Solid Foods: Recommend patient continue w/ regular solids and thin liquids. Consider crushing some pills (i.e. larger pills) & encourage pt to take pills one at a time. Recommend intermittent supervision to provide cueing when needed. Cue pt to take small bites/sips, chew well, slow rate of ingestion, and to focus on himself and eating. Minimize distractions during meals when possible. Pt agreeable to having some meds crushed. TUMBLE TAILSTOCK TURRET LATHE OPERATOR to continue to follow to monitor for toleration of diet, provide dysphagia education to patient and staff, and to determine if instrumental swallow study may be warranted. If choking incidents continue to occur, pt may benefit from instrumental swallow study (i.e. MBSS). Oral Medication Intake: Whole with Liquid Please contact the pharmacy regarding appropriate crushable or liquid drug formulations that are available whenever modified delivery is recommended. Compensatory Strategies and Precautions to be Taken for Safe Swallow: Sitting Upright (90 deg) Small Bites and Sips Alternate Liquids/Solids Rate of Ingestion Change Avoid Specific Foods Supervision While Eating and Drinking for Safe Swallow: Intermittent Supervision Foods to Avoid: Avoid sticky and dry foods. Swallowing Recommended Treatments: Compens. Strategy Educat. Recommendation for Speech: Inpatient Speech Therapy Recommend patient continue w/ regular solids and thin liquids. Consider crushing some pills (i.e. larger pills) & encourage pt to take pills one at a time. Pt agreeable to having some meds crushed. Recommend intermittent supervision to provide cueing when needed. Cue pt to take small bites/sips, chew well, slow rate of ingestion, and to focus on himself and eating. Minimize distractions during meals when possible. TUMBLE TAILSTOCK TURRET LATHE OPERATOR to continue to follow to monitor for toleration of diet, provide dysphagia education to patient and staff, and to determine if instrumental swallow study may be warranted. Clinical Dental Technician Clinican/Clinical Fellow: No Supervisory Statement: I have reviewed and agree with the student/clinical fellow's documentation: No Speech Language Pathologist: Miguelina Bach M.A., TUMBLE TAILSTOCK TURRET LATHE OPERATOR
[2022-11-03 14:54] LABS: Vancomycin Random 19.3 mcg/mL (15-20)
--- NOTE | 2022-11-03 15:06 | HE.PHANOTE ---
Vancomcyin Dosing Level 19.3 today. Will decrease dose to 750 mg Q12H. Next level 11/04 @ 1400. Randy BrarD
[2022-11-03 16:19] LABS: Glucose, Whole Blood 153 mg/dL (60-115)
[2022-11-03] MEDS: vancomycin HCL 750 MG in 0.9 % Sodium Chloride 250 ML 250 MG IV (16:43)
[2022-11-03 19:00] VITALS: BP 134/85; PULSE 102; RESP 16; TEMP 37.1; O2SAT 94
[2022-11-03] MEDS: Phenytoin Sodium Extended 100 MG CAPSULE 400 MG PO (20:02)
[2022-11-03] MEDS: QUEtiapine Fumarate 200 MG TABLET PO (20:03)
[2022-11-03] MEDS: traZODone HCL 50 MG TABLET PO (20:03)
[2022-11-03 20:22] LABS: Glucose, Whole Blood 141 mg/dL (60-115)
[2022-11-04] MEDS: vancomycin HCL 750 MG in 0.9 % Sodium Chloride 250 ML 250 MG IV (04:10)
[2022-11-04] MEDS: LORazepam 1 MG TABLET 2 MG PO ×3 (05:08→20:07)
[2022-11-04] MEDS: Omeprazole 20 MG CAPSULE.DR PO (06:41)
[2022-11-04 07:30] VITALS: BP 120/67; PULSE 107; RESP 15; TEMP 36.8; O2SAT 93
[2022-11-04 08:58] LABS: Creatinine Clr Calc Pharmacy 118.8; Estimated Glomerular Filt Rate > 60
[2022-11-04] MEDS: Atorvastatin Calcium 80 MG TABLET PO (09:37)
[2022-11-04] MEDS: Apixaban 5 MG TABLET PO ×2 (09:37→20:07)
[2022-11-04] MEDS: Gabapentin 400 MG CAPSULE PO ×4 (09:37→20:07)
[2022-11-04] MEDS: metFORMIN HCl 1,000 MG TABLET 1000 MG PO (09:37)
[2022-11-04] MEDS: Metoprolol Succinate ER 25 MG TAB.ER.24H 75 MG PO ×2 (09:37→20:06)
[2022-11-04] MEDS: DULoxetine HCl 60 MG CAPSULE.DR PO ×2 (09:38→20:06)
[2022-11-04] MEDS: Sennosides 8.6 MG TABLET PO (09:38)
[2022-11-04] MEDS: ARIPiprazole 5 MG TABLET 7.5 MG PO (09:38)
[2022-11-04] MEDS: Phenytoin Sodium Extended 100 MG CAPSULE 200 MG PO (09:38)
[2022-11-04] MEDS: Torsemide 20 MG TABLET 40 MG PO (09:38)
[2022-11-04] MEDS: Lidocaine 4 % Patch ADH..PATCH 1 PATCH TRANSDERMA (09:44)
[2022-11-04] MEDS: 0.9 % Sodium Chloride Flush 10 ML SYRINGE 5 ML IVFLUSH ×2 (09:45→17:42)
[2022-11-04 11:32] LABS: Glucose, Whole Blood 180 mg/dL (60-115)
[2022-11-04] MEDS: dilTIAZem HCL CD 120 MG CAP.ER.DEG PO (11:47)
[2022-11-04] MEDS: Insulin Lispro 100 UNIT/ML 3 ML VIAL SUBCUT (11:47)
--- NOTE | 2022-11-04 14:03 | MHC.SL.SWA ---
Speech Pathologist Impression: Risk of Aspiration Due to: History of Pneumonia Dysphasia Diet Status: Recommend patient continue on current Regular diet with thin liquids, pills whole in puree or with liquid as preferred by patient. Liquid Consistency and Strategies for Safe Swallow: Liquid Intake Recommendation: Thin Liquid Intake Strategies: Small Sips Solid Food Consistency: Dietary Recommendations: Regular Additional Modifications to Solid Foods: Recommend patient continue to have supervision during meals, to cue when eating too quickly or impulsively, and to take small bites and sips. Oral Medication Intake: Whole with Liquid Please contact the pharmacy regarding appropriate crushable or liquid drug formulations that are available whenever modified delivery is recommended. Compensatory Strategies and Precautions to be Taken for Safe Swallow: Sitting Upright (90 deg) Small Bites and Sips Alternate Liquids/Solids Rate of Ingestion Change Supervision While Eating and Drinking for Safe Swallow: Total Supervision (1:1) Foods to Avoid: Avoid sticky and tough to chew foods. Swallowing Recommended Treatments: Compens. Strategy Educat. Recommendation for Speech: Inpatient Speech Therapy Comment: Patient was seen at the conclusion of his lunch, as patient had finished his meal early. Per his report, he had a sensation that food 'was coming back up so he chose to stop eating. On further discussion, he reported that he felt indigestion/discomfort when eating the pork that was a part of his meal. He additionally added that the pork was both hard to cut and chew (patient is without dentures), so he stopped eating it. He reported though that he ate the rice and vegetables that had come with the meal, and also ate the apple crisp that was for dessert, without any difficulty. Patient reported that he has often been advised to: Chew thoroughly before swallowing, take small bites and swallow before adding more food, eat slowly, and alternate bites of food with sips of liquid (all stated by patient and reinforced by maintenance mechanic supervisor). Patient was offered a diet option that would provide softer, pre-cut foods, but patient declined and stated I know what I can eat, and I don't ask for steak. Recommend patient continue on current Regular diet with thin liquids, pills whole in puree or with liquid as preferred by patient. Recommend patient continue to have supervision during meals, to cue when eating too quickly or impulsively, and to take small bites and sips. As patient is on least restrictive diet and choking risk needs to be managed behaviorally by supervision at meals, recommend D/C Speech at this time. Please re-consult if other needs arise. Frequency/Duration: Date Range for Service Req: Timeline to reassess: Brass Sorter Clinican/Clinical Fellow: No Supervisory Statement: I have reviewed and agree with the student/clinical fellow's documentation: N/A Speech Language Pathologist: Hilda Cruz M.A., CCC-CREATIVE COORDINATOR
--- NOTE | 2022-11-04 14:58 | P.PNPSI_ITS ---
Subjective Subjective Date of Service: 11/04/22 Reason For Visit: Major depressive disorder Subjective Notes: Conditional Voluntary Interim History: The nursing staff reported the patient had been compliant with treatment but today in the morning refuses point of care. He denies new symptoms. The social work administrator reported that he had been referred to [facility]. On interview the patient denies new symptoms but there is a new lesion on his toes Mental Status Exam Mental Status Exam Patient Appearance: Appropriate Patient Orientation: Person, Place and Situation Level of Consciousness: Awake and Appropriate Patient Behavior: Guarded and Cooperative Mood Description: Withdrawn Affect Description: Constricted Patient Cognition Impaired: No Ability to Follow Directions: Good Speech Pattern: Clear Hallucinations: None Delusions: Not Present Thought Process: Linear Thought Content: positive for [place] and positive for Circumstantial Judgement: Fair Diagnostics Vital Signs (24Hr): Vital Signs - 24 hr 11/03/22 19:00 11/04/22 07:30 Temperature 98.7 F 98.3 F Pulse Rate 102 H 107 H Respiratory Rate 16 15 Blood Pressure 134/85 120/67 Pulse Oximetry 94 93 Oxygen Delivery Method Room Air Room Air BMI result Body Mass Index 41.1 Labs 10/07/22 10:53 11/04/22 08:15 Labs: Laboratory Results - last 48 hr 11/02/22 11/02/22 11/02/22 14:30 16:07 19:57 Creatinine Estim Creat Clear Calc Estimated GFR POC Glucose 183 H 171 H Vancomycin Trough 18.8 Random Vancomycin 11/03/22 11/03/22 11/03/22 07:35 08:14 11:37 Creatinine 0.87 Estim Creat Clear Calc 133.9 Estimated GFR > 60 POC Glucose 179 H 204 H Vancomycin Trough Random Vancomycin 11/03/22 11/03/22 11/03/22 14:31 16:12 20:00 Creatinine Estim Creat Clear Calc Estimated GFR POC Glucose 153 H 141 H Vancomycin Trough Random Vancomycin 19.3 11/04/22 11/04/22 11/04/22 08:15 11:19 14:04 Creatinine 0.98 Estim Creat Clear Calc 118.8 Estimated GFR > 60 POC Glucose 180 H Vancomycin Trough Random Vancomycin 19.0 Imaging Radiology Impressions: ITS Impressions Hand/Wrist X-Ray 10/07/22 22:07 IMPRESSION: Old healed fracture of the distal shaft of the fifth metacarpal bone and question old or healing fracture of the neck of the fourth metacarpal bone. No acute fracture. Foot X-Ray 10/11/22 12:56 IMPRESSION: RIGHT FOOT: Soft tissue ulceration at the distal aspect of the right great toe. Erosion/lucency through the distal tuft of the 1st distal phalanx, likely indicating osteomyelitis. LEFT FOOT: 1. Soft tissue ulceration along the distal/medial aspect of the great toe with circumferential soft tissue swelling. No radiopaque foreign body. No adjacent cortical erosion or periosteal reaction to suggest acute osteomyelitis, however, this may be occult on plain radiographs. 2. Severe osteoarthritis with prominent bony remodeling throughout the tibiotalar and midfoot joints, similar when compared to the prior radiographs from 2016. Foot X-Ray 10/11/22 12:56 IMPRESSION: RIGHT FOOT: Soft tissue ulceration at the distal aspect of the right great toe. Erosion/lucency through the distal tuft of the 1st distal phalanx, likely indicating osteomyelitis. LEFT FOOT: 1. Soft tissue ulceration along the distal/medial aspect of the great toe with circumferential soft tissue swelling. No radiopaque foreign body. No adjacent cortical erosion or periosteal reaction to suggest acute osteomyelitis, however, this may be occult on plain radiographs. 2. Severe osteoarthritis with prominent bony remodeling throughout the tibiotalar and midfoot joints, similar when compared to the prior radiographs from 2016. Duplex Scan Lower Extremity Artery 10/13/22 19:25 IMPRESSION: 1. No hemodynamically significant stenosis in the right lower extremity. 2. Incidental note is made of cardiac arrhythmia. Chest X-Ray 10/15/22 13:39 IMPRESSION: Right upper extremity PICC line tip projects over SVC. Medications Medications Current Medications Acetaminophen (Acetaminophen 325 Mg Tablet) 650 mg PO Q6H PRN PRN Reason: Headache/Pain Mild Scale (1-3) Last Admin: 10/30/22 20:27 Dose: 650 mg Al Hydroxide/Mg Hydroxide (Magnesium Hydrox/Alum Hydrox 30 Ml Oral.Susp) 30 ml PO Q6H PRN PRN Reason: Heartburn/Nausea Last Admin: 11/02/22 04:39 Dose: 30 ml Albuterol Sulfate (Albuterol Sulfate 90 Mcg 8 Gm Inhaler) 2 puff INHALE Q4H PRN PRN Reason: Shortness Of Breath Last Admin: 11/02/22 09:40 Dose: 2 puff Apixaban (Apixaban 5 Mg Tablet) 5 mg PO BID [facility] Last Admin: 11/04/22 09:37 Dose: 5 mg Aripiprazole (Aripiprazole 5 Mg Tablet) 7.5 mg PO DAILY [facility] Last Admin: 11/04/22 09:38 Dose: 7.5 mg Atorvastatin Calcium (Atorvastatin Calcium 80 Mg Tablet) 80 mg PO DAILY [facility] Last Admin: 11/04/22 09:37 Dose: 80 mg Diltiazem HCl (Diltiazem Hcl Cd 120 Mg Cap.Er.Deg) 120 mg PO DAILY@11 [facility]; Protocol Last Admin: 11/04/22 11:47 Dose: 120 mg Doxycycline Monohydrate (Doxycycline Monohydrate 100 Mg Capsule) 100 mg PO Q12H [facility] Stop: 12/23/22 09:01 Duloxetine HCl (Duloxetine Hcl 60 Mg Capsule.) 60 mg PO BID [facility] Last Admin: 11/04/22 09:38 Dose: 60 mg Ferrous Sulfate (Ferrous Sulfate 324 Mg Tablet.) 324 mg PO MoWeFr@0900 [facility] Last Admin: 11/03/22 08:51 Dose: Not Given Gabapentin (Gabapentin 400 Mg Capsule) 400 mg PO QID [facility] Last Admin: 11/04/22 11:48 Dose: 400 mg Glucose (Glucose Gel 15 Gm Gel..Gram.) 15 gm PO Q15M PRN; Protocol PRN Reason: per Hypoglycemia Standing Ord. Hydroxyzine HCl (Hydroxyzine Hcl 25 Mg Tablet) 25 mg PO TID PRN PRN Reason: Anxiety Last Admin: 11/02/22 04:01 Dose: 25 mg Dextrose (D10) 250 mls @ 750 mls/hr IV Q15M PRN; Protocol PRN Reason: per Hypoglycemia Standing Ord. Vancomycin HCl 750 mg/ Sodium (Chloride) 265 mls @ 265 mls/hr IV Q12H [facility] Stop: 11/23/22 16:59 Last Infusion: 11/04/22 06:24 Dose: Infused Ibuprofen (Ibuprofen 600 Mg Tablet) 600 mg PO Q6H PRN PRN Reason: Pain, Moderate(Pain Scale 4-6) Last Admin: 10/22/22 22:08 Dose: 600 mg Insulin Human Lispro (Insulin Lispro 100 Unit/Ml 3 Ml Vial) 0 unit SUBCUT QIDACHS [facility]; Protocol Last Admin: 11/04/22 11:47 Dose: 2 unit Lidocaine (Lidocaine 4 % Patch Adh..Patch) 1 patch TRANSDERMA DAILY [facility] Last Admin: 11/04/22 09:44 Dose: 1 patch Lorazepam (Lorazepam 1 Mg Tablet) 2 mg PO TID PRN PRN Reason: Anxiety Last Admin: 11/04/22 13:45 Dose: 2 mg Magnesium Hydroxide (Milk Of Magnesia 30 Ml Oral.Susp) 30 ml PO DAILY PRN PRN Reason: Constipation Last Admin: 10/08/22 15:52 Dose: 30 ml Melatonin (Melatonin 3 Mg Tablet) 3 mg PO BEDTIME PRN PRN Reason: Insomnia Last Admin: 11/02/22 21:37 Dose: 3 mg Metformin HCl (Metformin Hcl 1,000 Mg Tablet) 1,000 mg PO DAILY [facility] Last Admin: 11/04/22 09:37 Dose: 1,000 mg Metoprolol Succinate (Metoprolol Succinate Er 25 Mg Tab.Er.24h) 75 mg PO BID [facility]; Protocol Last Admin: 11/04/22 09:37 Dose: 75 mg Naproxen (Naproxen 500 Mg Tablet) 500 mg PO BID PRN PRN Reason: Knee pain Last Admin: 10/24/22 22:27 Dose: 500 mg Nitroglycerin (Nitroglycerin 0.4 Mg Tab.Subl) 0.4 mg SUBLINGUAL Q5M PRN PRN Reason: Chest Pain Nystatin (Nystatin Powder 15 Gm Bottle) 1 appl TOPICAL BID [facility]; Protocol Last Admin: 11/04/22 09:48 Dose: Not Given Omeprazole (Omeprazole 20 Mg Capsule.Dr) 20 mg PO DAILY@0630 [facility] Last Admin: 11/04/22 06:41 Dose: 20 mg Ondansetron HCl (Ondansetron Odt 4 Mg Tab.Rapdis) 4 mg TRANSLINGU Q8H PRN PRN Reason: Nausea Phenytoin Sodium (Phenytoin Sodium Extended 100 Mg Capsule) 200 mg PO DAILY [facility] Last Admin: 11/04/22 09:38 Dose: 200 mg Phenytoin Sodium (Phenytoin Sodium Extended 100 Mg Capsule) 400 mg PO BEDTIME [facility] Last Admin: 11/03/22 20:02 Dose: 400 mg Quetiapine Fumarate (Quetiapine Fumarate 100 Mg Tablet) 100 mg PO BEDTIME PRN PRN Reason: Insomnia Last Admin: 11/01/22 02:02 Dose: 100 mg Quetiapine Fumarate (Quetiapine Fumarate 200 Mg Tablet) 200 mg PO BEDTIME [facility] Last Admin: 11/03/22 20:03 Dose: 200 mg Senna (Sennosides 8.6 Mg Tablet) 8.6 mg PO DAILY [facility] Last Admin: 11/04/22 09:38 Dose: 8.6 mg Simethicone (Simethicone 80 Mg Tab.Chew) 80 mg PO TID PRN PRN Reason: Indigestion Sodium Chloride (0.9 % Sodium Chloride Flush 10 Ml Syringe) 5 ml IVFLUSH TID [facility] Last Admin: 11/04/22 09:45 Dose: 5 ml Torsemide (Torsemide 20 Mg Tablet) 40 mg PO DAILY [facility]; Protocol Last Admin: 11/04/22 09:38 Dose: 40 mg Trazodone HCl (Trazodone Hcl 50 Mg Tablet) 50 mg PO BEDTIME MRX1 PRN PRN Reason: Insomnia Last Admin: 10/28/22 23:48 Dose: 50 mg Trazodone HCl (Trazodone Hcl 50 Mg Tablet) 50 mg PO BEDTIME [facility] Last Admin: 11/03/22 20:03 Dose: 50 mg Allergies Allergies Allergy/AdvReac Type Severity Reaction Status Date / Time aspirin Allergy Severe OCCASIONAL Verified 04/08/22 14:18 RASH / TONGUE SWELLING, Hives, throat swellig bee pollen [BEE STINGS] Allergy Severe ANAPHYLAXIS Verified 04/08/22 14:18 Penicillins Allergy Severe ANAPHYLAXIS Verified 04/08/22 14:18 povidone-iodine [Betadine] Allergy Severe Redness of Verified 04/08/22 14:18 Skin soap [Betadine] Allergy Severe Redness of Verified 04/08/22 14:18 Skin spider venom [SPIDER BITES] Allergy Severe Hives Verified 04/08/22 14:18 amoxicillin Allergy Intermediate Hives Verified 04/08/22 14:18 clindamycin Allergy Mild RASH Verified 04/08/22 14:18 latex [Latex] Allergy Mild RASH Verified 04/08/22 14:18 shrimp Allergy Hives Verified 06/21/22 11:48 bupropion [From WELLBUTRIN] AdvReac Severe SEIZURES Verified 04/08/22 14:18 adhesive tape AdvReac Mild Rash Verified 04/14/22 15:55 Assessment & Plan Assessment & Plan (1) Atrial fibrillation with rapid ventricular response: Status: Acute Code(s): I48.91 - Unspecified atrial fibrillation Plan On checking pulse rate using his radial pulse, his rate is about 110/Min. On the recorded vital signs, some of the pulse rates are well within normal range but some of them are quite high up to 145/Min. With regard to the home regimen, listed to be on diltiazem ER 120 mg daily, metoprolol ER 70 mg daily and digoxin alternate days. Current meds however are diltiazem CD 1 20 mg daily with metoprolol at b.i.d. dosing. However, do not see digoxin. Echocardiogram from last year with LVEF of 55-60%. Normal right ventricular size and function. Mildly elevated right atrial pressure. IVC dilated. Other labs reviewed. Hemoglobin 9.7. White cell 6.2. Platelets 280. Potassium 3.5. Creatinine is 0.92. BUN is 18. High sensitivity troponins are well within normal range. Overall, atrial fibrillation with rapid rate could be from holding off on digoxin. Recommend starting it again. There is also discrepancy between what t he patient is a send was reconciled. He states he is taking every day. Hence resume digoxin daily after loading dose and monitor EKGs periodically. Will follow as needed. Discussed with psychiatry as well as hospitalist service. Plan 1. Continue with Cymbalta 60 mg p.o. b.i.d. to target depression. At this moment the patient is not suicidal. 2. Continue with medical workout and treatment of osteomyelitis with IV and vancomycin. We will follow the recommendations of Medicine. 3. Waiting for placement 4. Speech and swallow consult done, no new recommendations. Reason for continued inpatient stay Substantial Risk for: inability to function, rapid decompensation and med/psych decompensation Time Spent With Patient Time: Total time managing care of this patient today _20___ minutes.
--- NOTE | 2022-11-04 15:11 | HE.PHANOTE ---
RE VANCO TROUGH WAS 19, RESTARTING TOMORROW AT 1PM, RANDOM AFTER 2 DOSES SHARON
[2022-11-04 16:37] LABS: Glucose, Whole Blood 134 mg/dL (60-115)
[2022-11-04 18:00] VITALS: BP 130/61; PULSE 120; TEMP 37.1
[2022-11-04] MEDS: Loperamide HCl 2 MG CAPSULE 4 MG PO (18:23)
[2022-11-04] MEDS: traZODone HCL 50 MG TABLET PO (20:06)
[2022-11-04] MEDS: QUEtiapine Fumarate 200 MG TABLET PO (20:07)
[2022-11-04] MEDS: Phenytoin Sodium Extended 100 MG CAPSULE 400 MG PO (20:07)
[2022-11-05 06:00] VITALS: BP 161/62; PULSE 116; RESP 18; TEMP 36.8; O2SAT 94
[2022-11-05] MEDS: Omeprazole 20 MG CAPSULE.DR PO (06:46)
[2022-11-05 08:06] LABS: Glucose, Whole Blood 204 mg/dL (60-115)
[2022-11-05 08:25] LABS: Creatinine Clr Calc Pharmacy 123.9; Estimated Glomerular Filt Rate > 60
[2022-11-05] MEDS: Lidocaine 4 % Patch ADH..PATCH 1 PATCH TRANSDERMA (08:28)
[2022-11-05] MEDS: ARIPiprazole 5 MG TABLET 7.5 MG PO (08:35)
[2022-11-05] MEDS: Metoprolol Succinate ER 25 MG TAB.ER.24H 75 MG PO ×2 (08:35→21:08)
[2022-11-05] MEDS: Gabapentin 400 MG CAPSULE PO ×4 (08:36→21:07)
[2022-11-05] MEDS: Phenytoin Sodium Extended 100 MG CAPSULE 200 MG PO (08:36)
[2022-11-05] MEDS: Torsemide 20 MG TABLET 40 MG PO (08:36)
[2022-11-05] MEDS: metFORMIN HCl 1,000 MG TABLET 1000 MG PO (08:37)
[2022-11-05] MEDS: Apixaban 5 MG TABLET PO ×2 (08:37→21:07)
[2022-11-05] MEDS: DULoxetine HCl 60 MG CAPSULE.DR PO ×2 (08:37→21:07)
[2022-11-05] MEDS: Atorvastatin Calcium 80 MG TABLET PO (08:37)
[2022-11-05] MEDS: Insulin Lispro 100 UNIT/ML 3 ML VIAL SUBCUT ×3 (08:42→16:47)
[2022-11-05] MEDS: 0.9 % Sodium Chloride Flush 10 ML SYRINGE 5 ML IVFLUSH ×3 (08:53→21:18)
[2022-11-05] MEDS: LORazepam 1 MG TABLET 2 MG PO ×2 (08:54→23:51)
--- NOTE | 2022-11-05 10:09 | HE.PHANOTE ---
VANCOMYCIN DOSING BASED ON SC DOSE CONTINUED AT 750 Q 12. NEXT TROUGH 11/06 @ 1100
[2022-11-05] MEDS: Loperamide HCl 2 MG CAPSULE PO (10:36)
[2022-11-05] MEDS: dilTIAZem HCL CD 120 MG CAP.ER.DEG PO (10:36)
[2022-11-05 10:40] VITALS: BP 120/64; PULSE 113; RESP 18
[2022-11-05 11:06] VITALS: BP 130/61
[2022-11-05 11:32] LABS: Glucose, Whole Blood 211 mg/dL (60-115)
--- NOTE | 2022-11-05 14:05 | HO.PSYCHPN ---
Subjective Subjective Date of Service: 11/05/22 Reason For Visit: Major depressive disorder Subjective Notes: Conditional Voluntary Interim History: The nursing staff reported that the patient had been pleasant, cooperative. He refused to use his CPAP at night and he had been on good behavior. His vancomycin level was 19 and was held x2 followed by pharmacist. On interview the patient denies new symptoms, waiting for placement. We will order blood work for tomorrow morning Mental Status Exam Mental Status Exam Patient Appearance: Appropriate Patient Orientation: Person and Situation Level of Consciousness: Awake and Appropriate Patient Behavior: Guarded and Passive Mood Description: Withdrawn Affect Description: Constricted Patient Cognition Impaired: Yes Ability to Follow Directions: Good Speech Pattern: Clear Hallucinations: None Delusions: Paranoid Ideation Thought Process: Distracted and Linear Thought Content: positive for Circumstantial Judgement: Fair Diagnostics Vital Signs (24Hr): Vital Signs - 24 hr 11/04/22 18:00 11/05/22 11:06 Temperature 98.8 F Pulse Rate 120 H Blood Pressure 130/61 130/61 BMI result Body Mass Index 41.1 Labs 10/07/22 10:53 11/05/22 08:01 Labs: Laboratory Results - last 48 hr 11/03/22 11/03/22 11/03/22 14:31 16:12 20:00 Creatinine Estim Creat Clear Calc Estimated GFR POC Glucose 153 H 141 H Random Vancomycin 19.3 11/04/22 11/04/22 11/04/22 08:15 11:19 14:04 Creatinine 0.98 Estim Creat Clear Calc 118.8 Estimated GFR > 60 POC Glucose 180 H Random Vancomycin 19.0 11/04/22 11/05/22 11/05/22 16:32 07:54 08:01 Creatinine 0.94 Estim Creat Clear Calc 123.9 Estimated GFR > 60 POC Glucose 134 H 204 H Random Vancomycin 11/05/22 11:19 Creatinine Estim Creat Clear Calc Estimated GFR POC Glucose 211 H Random Vancomycin Imaging Radiology Impressions: ITS Impressions Hand/Wrist X-Ray 10/07/22 22:07 IMPRESSION: Old healed fracture of the distal shaft of the fifth metacarpal bone and question old or healing fracture of the neck of the fourth metacarpal bone. No acute fracture. Foot X-Ray 10/11/22 12:56 IMPRESSION: RIGHT FOOT: Soft tissue ulceration at the distal aspect of the right great toe. Erosion/lucency through the distal tuft of the 1st distal phalanx, likely indicating osteomyelitis. LEFT FOOT: 1. Soft tissue ulceration along the distal/medial aspect of the great toe with circumferential soft tissue swelling. No radiopaque foreign body. No adjacent cortical erosion or periosteal reaction to suggest acute osteomyelitis, however, this may be occult on plain radiographs. 2. Severe osteoarthritis with prominent bony remodeling throughout the tibiotalar and midfoot joints, similar when compared to the prior radiographs from 2016. Foot X-Ray 10/11/22 12:56 IMPRESSION: RIGHT FOOT: Soft tissue ulceration at the distal aspect of the right great toe. Erosion/lucency through the distal tuft of the 1st distal phalanx, likely indicating osteomyelitis. LEFT FOOT: 1. Soft tissue ulceration along the distal/medial aspect of the great toe with circumferential soft tissue swelling. No radiopaque foreign body. No adjacent cortical erosion or periosteal reaction to suggest acute osteomyelitis, however, this may be occult on plain radiographs. 2. Severe osteoarthritis with prominent bony remodeling throughout the tibiotalar and midfoot joints, similar when compared to the prior radiographs from 2016. Duplex Scan Lower Extremity Artery 10/13/22 19:25 IMPRESSION: 1. No hemodynamically significant stenosis in the right lower extremity. 2. Incidental note is made of cardiac arrhythmia. Chest X-Ray 10/15/22 13:39 IMPRESSION: Right upper extremity PICC line tip projects over SVC. Medications Medications Current Medications Acetaminophen (Acetaminophen 325 Mg Tablet) 650 mg PO Q6H PRN PRN Reason: Headache/Pain Mild Scale (1-3) Last Admin: 10/30/22 20:27 Dose: 650 mg Al Hydroxide/Mg Hydroxide (Magnesium Hydrox/Alum Hydrox 30 Ml Oral.Susp) 30 ml PO Q6H PRN PRN Reason: Heartburn/Nausea Last Admin: 11/02/22 04:39 Dose: 30 ml Albuterol Sulfate (Albuterol Sulfate 90 Mcg 8 Gm Inhaler) 2 puff INHALE Q4H PRN PRN Reason: Shortness Of Breath Last Admin: 11/02/22 09:40 Dose: 2 puff Apixaban (Apixaban 5 Mg Tablet) 5 mg PO BID [facility] Last Admin: 11/05/22 08:37 Dose: 5 mg Aripiprazole (Aripiprazole 5 Mg Tablet) 7.5 mg PO DAILY [facility] Last Admin: 11/05/22 08:35 Dose: 7.5 mg Atorvastatin Calcium (Atorvastatin Calcium 80 Mg Tablet) 80 mg PO DAILY [facility] Last Admin: 11/05/22 08:37 Dose: 80 mg Diltiazem HCl (Diltiazem Hcl Cd 120 Mg Cap.Er.Deg) 120 mg PO DAILY@11 [facility]; Protocol Last Admin: 11/05/22 10:36 Dose: 120 mg Doxycycline Monohydrate (Doxycycline Monohydrate 100 Mg Capsule) 100 mg PO Q12H [facility] Stop: 12/23/22 09:01 Duloxetine HCl (Duloxetine Hcl 60 Mg Capsule.) 60 mg PO BID [facility] Last Admin: 11/05/22 08:37 Dose: 60 mg Ferrous Sulfate (Ferrous Sulfate 324 Mg Tablet.) 324 mg PO MoWeFr@0900 [facility] Last Admin: 11/05/22 08:43 Dose: Not Given Gabapentin (Gabapentin 400 Mg Capsule) 400 mg PO QID [facility] Last Admin: 11/05/22 08:36 Dose: 400 mg Glucose (Glucose Gel 15 Gm Gel..Gram.) 15 gm PO Q15M PRN; Protocol PRN Reason: per Hypoglycemia Standing Ord. Hydroxyzine HCl (Hydroxyzine Hcl 25 Mg Tablet) 25 mg PO TID PRN PRN Reason: Anxiety Last Admin: 11/02/22 04:01 Dose: 25 mg Dextrose (D10) 250 mls @ 750 mls/hr IV Q15M PRN; Protocol PRN Reason: per Hypoglycemia Standing Ord. Vancomycin HCl 750 mg/ Sodium (Chloride) 265 mls @ 265 mls/hr IV Q12H [facility] Stop: 11/24/22 13:59 Ibuprofen (Ibuprofen 600 Mg Tablet) 600 mg PO Q6H PRN PRN Reason: Pain, Moderate(Pain Scale 4-6) Last Admin: 10/22/22 22:08 Dose: 600 mg Insulin Human Lispro (Insulin Lispro 100 Unit/Ml 3 Ml Vial) 0 unit SUBCUT QIDACHS [facility]; Protocol Last Admin: 11/05/22 12:03 Dose: 4 unit Lidocaine (Lidocaine 4 % Patch Adh..Patch) 1 patch TRANSDERMA DAILY [facility] Last Admin: 11/05/22 08:28 Dose: 1 patch Loperamide HCl (Loperamide Hcl 2 Mg Capsule) 2 mg PO Q4H PRN PRN Reason: Diarrhea Last Admin: 11/05/22 10:36 Dose: 2 mg Lorazepam (Lorazepam 1 Mg Tablet) 2 mg PO TID PRN PRN Reason: Anxiety Last Admin: 11/05/22 08:54 Dose: 2 mg Magnesium Hydroxide (Milk Of Magnesia 30 Ml Oral.Susp) 30 ml PO DAILY PRN PRN Reason: Constipation Last Admin: 10/08/22 15:52 Dose: 30 ml Melatonin (Melatonin 3 Mg Tablet) 3 mg PO BEDTIME PRN PRN Reason: Insomnia Last Admin: 11/02/22 21:37 Dose: 3 mg Metformin HCl (Metformin Hcl 1,000 Mg Tablet) 1,000 mg PO DAILY [facility] Last Admin: 11/05/22 08:37 Dose: 1,000 mg Metoprolol Succinate (Metoprolol Succinate Er 25 Mg Tab.Er.24h) 75 mg PO BID [facility]; Protocol Last Admin: 11/05/22 08:35 Dose: 75 mg Naproxen (Naproxen 500 Mg Tablet) 500 mg PO BID PRN PRN Reason: Knee pain Last Admin: 10/24/22 22:27 Dose: 500 mg Nitroglycerin (Nitroglycerin 0.4 Mg Tab.Subl) 0.4 mg SUBLINGUAL Q5M PRN PRN Reason: Chest Pain Nystatin (Nystatin Powder 15 Gm Bottle) 1 appl TOPICAL BID [facility]; Protocol Last Admin: 11/05/22 09:27 Dose: Not Given Omeprazole (Omeprazole 20 Mg Capsule.Dr) 20 mg PO DAILY@0630 [facility] Last Admin: 11/05/22 06:46 Dose: 20 mg Ondansetron HCl (Ondansetron Odt 4 Mg Tab.Rapdis) 4 mg TRANSLINGU Q8H PRN PRN Reason: Nausea Phenytoin Sodium (Phenytoin Sodium Extended 100 Mg Capsule) 200 mg PO DAILY [facility] Last Admin: 11/05/22 08:36 Dose: 200 mg Phenytoin Sodium (Phenytoin Sodium Extended 100 Mg Capsule) 400 mg PO BEDTIME [facility] Last Admin: 11/04/22 20:07 Dose: 400 mg Quetiapine Fumarate (Quetiapine Fumarate 100 Mg Tablet) 100 mg PO BEDTIME PRN PRN Reason: Insomnia Last Admin: 11/01/22 02:02 Dose: 100 mg Quetiapine Fumarate (Quetiapine Fumarate 200 Mg Tablet) 200 mg PO BEDTIME [facility] Last Admin: 11/04/22 20:07 Dose: 200 mg Senna (Sennosides 8.6 Mg Tablet) 8.6 mg PO DAILY [facility] Last Admin: 11/05/22 08:43 Dose: Not Given Simethicone (Simethicone 80 Mg Tab.Chew) 80 mg PO TID PRN PRN Reason: Indigestion Sodium Chloride (0.9 % Sodium Chloride Flush 10 Ml Syringe) 5 ml IVFLUSH TID [facility] Last Admin: 11/05/22 08:53 Dose: 5 ml Torsemide (Torsemide 20 Mg Tablet) 40 mg PO DAILY [facility]; Protocol Last Admin: 11/05/22 08:36 Dose: 40 mg Trazodone HCl (Trazodone Hcl 50 Mg Tablet) 50 mg PO BEDTIME MRX1 PRN PRN Reason: Insomnia Last Admin: 10/28/22 23:48 Dose: 50 mg Trazodone HCl (Trazodone Hcl 50 Mg Tablet) 50 mg PO BEDTIME [facility] Last Admin: 11/04/22 20:06 Dose: 50 mg Allergies Allergies Allergy/AdvReac Type Severity Reaction Status Date / Time aspirin Allergy Severe OCCASIONAL Verified 04/08/22 14:18 RASH / TONGUE SWELLING, Hives, throat swellig bee pollen [BEE STINGS] Allergy Severe ANAPHYLAXIS Verified 04/08/22 14:18 Penicillins Allergy Severe ANAPHYLAXIS Verified 04/08/22 14:18 povidone-iodine [Betadine] Allergy Severe Redness of Verified 04/08/22 14:18 Skin soap [Betadine] Allergy Severe Redness of Verified 04/08/22 14:18 Skin spider venom [SPIDER BITES] Allergy Severe Hives Verified 04/08/22 14:18 amoxicillin Allergy Intermediate Hives Verified 04/08/22 14:18 clindamycin Allergy Mild RASH Verified 04/08/22 14:18 latex [Latex] Allergy Mild RASH Verified 04/08/22 14:18 shrimp Allergy Hives Verified 06/21/22 11:48 bupropion [From WELLBUTRIN] AdvReac Severe SEIZURES Verified 04/08/22 14:18 adhesive tape AdvReac Mild Rash Verified 04/14/22 15:55 Assessment & Plan Assessment & Plan (1) Atrial fibrillation with rapid ventricular response: Status: Acute Code(s): I48.91 - Unspecified atrial fibrillation Plan On checking pulse rate using his radial pulse, his rate is about 110/Min. On the recorded vital signs, some of the pulse rates are well within normal range but some of them are quite high up to 145/Min. With regard to the home regimen, listed to be on diltiazem ER 120 mg daily, metoprolol ER 70 mg daily and digoxin alternate days. Current meds however are diltiazem CD 1 20 mg daily with metoprolol at b.i.d. dosing. However, do not see digoxin. Echocardiogram from last year with LVEF of 55-60%. Normal right ventricular size and function. Mildly elevated right atrial pressure. IVC dilated. Other labs reviewed. Hemoglobin 9.7. White cell 6.2. Platelets 280. Potassium 3.5. Creatinine is 0.92. BUN is 18. High sensitivity troponins are well within normal range. Overall, atrial fibrillation with rapid rate could be from holding off on digoxin. Recommend starting it again. There is also discrepancy between what the patient is a send was reconciled. He states he is taking every day. Hence resume digoxin daily after loading dose and monitor EKGs periodically. Will follow as needed. Discussed with psychiatry as well as hospitalist service. Plan 1. Continue with Cymbalta 60 mg p.o. b.i.d. to target depression. At this moment the patient is not suicidal. 2. Continue with medical workout and treatment of osteomyelitis with IV and vancomycin. We will follow the recommendations of Medicine. 3. Waiting for placement 4. Speech and swallow consult done, no new recommendations. Reason for continued inpatient stay Substantial Risk for: inability to function, rapid decompensation and med/psych decompensation Time Spent With Patient Time: Total time managing care of this patient today __20__ minutes.
[2022-11-05] MEDS: vancomycin HCL 750 MG in 0.9 % Sodium Chloride 250 ML 265 MG IV (14:19)
[2022-11-05 16:41] LABS: Glucose, Whole Blood 227 mg/dL (60-115)
[2022-11-05] MEDS: Ibuprofen 600 MG TABLET PO ×2 (17:18→23:51)
[2022-11-05 18:30] VITALS: BMI 43.8
[2022-11-05] MEDS: traZODone HCL 50 MG TABLET PO (21:07)
[2022-11-05] MEDS: QUEtiapine Fumarate 200 MG TABLET PO (21:07)
[2022-11-05] MEDS: Phenytoin Sodium Extended 100 MG CAPSULE 400 MG PO (21:08)
[2022-11-05 21:16] LABS: Glucose, Whole Blood 138 mg/dL (60-115)
[2022-11-05 21:21] VITALS: BP 129/73; PULSE 106; RESP 20; TEMP 36.1; O2SAT 96
[2022-11-06] MEDS: vancomycin HCL 750 MG in 0.9 % Sodium Chloride 250 ML 265 MG IV (02:02)
[2022-11-06] MEDS: Omeprazole 20 MG CAPSULE.DR PO (05:46)
[2022-11-06 06:57] LABS: MANUAL DIFF FLAG NO
[2022-11-06 07:08] LABS: Basophils Percent Auto 0.3 % (0-2); Eosinophils Absolute Auto 0.1 X10*3/uL (0.0-0.4); Eosinophils Percent Auto 2.2 % (0-4); Hematocrit 25.9 % (42.0-52.0); Hemoglobin 7.3 g/dl (14.0-18.0); Imm Gran Abs Auto 0.01 X10*3/uL (0.00-0.03); Imm Gran Pct Auto 0.2 % (0.0-0.4); Lymphocytes Absolute Auto 0.8 X10*3/uL (1.2-4.9); Lymphocytes Percent Auto 13.8 % (20-40); Mean Corpuscular HGB Conc 28.2 g/dl (31.0-36.0); Mean Corpuscular Hemoglobin 21.5 pg (27.0-33.0); Mean Corpuscular Volume 76.2 fL (80.0-98.0); Mean Platelet Volume 10.2 fL (9.4-12.4); Monocytes Absolute Auto 0.4 X10*3/uL (0.1-1.2); Monocytes Percent Auto 7.1 % (2-11); Neutrophils Absolute Auto 4.6 x10*3/uL (2.0-8.3); Neutrophils Percent Auto 76.4 % (45-73); Platelet Count 288 X10*3/uL (160-400); Red Cell Distribution Width 18.9 % (11.0-16.0)
[2022-11-06 07:13] LABS: Anion Gap 11 (12-20); Blood Urea Nitrogen 13 mg/dL (9-16); Calcium 8.1 mg/dL (8.4-10.2); Carbon Dioxide 33 mmol/L (22-29); Chloride 98 mmol/L (96-108); Estimated Glomerular Filt Rate > 60; Glucose Random 241 mg/dL (60-115); Potassium 2.8 mmol/L (3.3-5.1); Sodium 139 mmol/L (135-145)
[2022-11-06 07:20] LABS: Phenytoin Dilantin 7.5 ug/mL (10.0-20.0)
[2022-11-06 07:45] LABS: Glucose, Whole Blood 211 mg/dL (60-115)
[2022-11-06 09:00] VITALS: BP 137/84; PULSE 109; RESP 18; TEMP 36.4; O2SAT 93
[2022-11-06] MEDS: Insulin Lispro 100 UNIT/ML 3 ML VIAL SUBCUT ×4 (09:02→22:06)
[2022-11-06] MEDS: Metoprolol Succinate ER 25 MG TAB.ER.24H 75 MG PO ×2 (09:03→21:01)
[2022-11-06] MEDS: Phenytoin Sodium Extended 100 MG CAPSULE 200 MG PO (09:03)
[2022-11-06] MEDS: 0.9 % Sodium Chloride Flush 10 ML SYRINGE 5 ML IVFLUSH ×3 (09:03→20:59)
[2022-11-06] MEDS: Gabapentin 400 MG CAPSULE PO ×4 (09:04→21:01)
[2022-11-06] MEDS: metFORMIN HCl 1,000 MG TABLET 1000 MG PO (09:04)
[2022-11-06] MEDS: DULoxetine HCl 60 MG CAPSULE.DR PO ×2 (09:04→21:01)
[2022-11-06] MEDS: ARIPiprazole 5 MG TABLET 7.5 MG PO (09:04)
[2022-11-06] MEDS: Torsemide 20 MG TABLET 40 MG PO (09:06)
[2022-11-06] MEDS: Apixaban 5 MG TABLET PO ×2 (09:06→21:01)
[2022-11-06] MEDS: Atorvastatin Calcium 80 MG TABLET PO (09:07)
[2022-11-06] MEDS: Lidocaine 4 % Patch ADH..PATCH 1 PATCH TRANSDERMA (09:08)
[2022-11-06] MEDS: LORazepam 1 MG TABLET 2 MG PO ×2 (09:19→16:14)
[2022-11-06 11:10] LABS: Glucose, Whole Blood 173 mg/dL (60-115)
[2022-11-06 11:23] VITALS: BP 103/68; PULSE 102; TEMP 36.1
[2022-11-06] MEDS: dilTIAZem HCL CD 120 MG CAP.ER.DEG PO (11:35)
[2022-11-06 11:47] LABS: Vancomycin Random 14.9 mcg/mL (15-20)
--- NOTE | 2022-11-06 11:49 | P.PNPSI_ITS ---
Subjective Subjective Date of Service: 11/06/22 Reason For Visit: Major depressive disorder Subjective Notes: Conditional Voluntary Interim History: The nursing staff reported the patient had been compliant with treatment, no new symptoms. On interview the patient denies new symptoms Mental Status Exam Mental Status Exam Patient Appearance: Well Grooomed and Appropriate Patient Orientation: Person and Situation Level of Consciousness: Awake and Appropriate Patient Behavior: Guarded and Passive Mood Description: Calm Affect Description: Constricted Patient Cognition Impaired: Yes Ability to Follow Directions: Good Speech Pattern: Clear Hallucinations: None Delusions: Not Present Thought Process: Linear Thought Content: positive for [place] and positive for Circumstantial Judgement: Fair Diagnostics Vital Signs (24Hr): Vital Signs - 24 hr 11/05/22 21:21 11/06/22 09:00 11/06/22 11:23 Temperature 97.0 F 97.6 F 97.0 F Pulse Rate 106 H 109 H 102 H Respiratory Rate 20 18 Blood Pressure 129/73 137/84 103/68 Pulse Oximetry 96 93 Oxygen Delivery Method Room Air Room Air BMI result Body Mass Index 43.8 Labs 11/06/22 06:35 11/06/22 06:35 Labs: Laboratory Results - last 48 hr 11/04/22 11/04/22 11/05/22 14:04 16:32 07:54 WBC RBC Hgb Hct MCV MCH MCHC RDW Plt Count MPV Immature Gran % (Auto) Neut % (Auto) Lymph % (Auto) [place] % (Auto) Eos % (Auto) Baso % (Auto) Lymph # (Auto) [place] # (Auto) Eos # (Auto) Baso # (Auto) Abs Immat Gran (auto) Absolute Neuts (auto) Absolute Nucleated RBC Nucleated RBC % (auto) Sodium Potassium Chloride Carbon Dioxide Anion Gap BUN Creatinine Estim Creat Clear Calc Estimated GFR POC Glucose 134 H 204 H Random Glucose Calcium Random Vancomycin 19.0 Phenytoin 11/05/22 11/05/22 11/05/22 08:01 11:19 16:37 WBC RBC Hgb Hct MCV MCH MCHC RDW Plt Count MPV Immature Gran % (Auto) Neut % (Auto) Lymph % (Auto) [place] % (Auto) Eos % (Auto) Baso % (Auto) Lymph # (Auto) [place] # (Auto) Eos # (Auto) Baso # (Auto) Abs Immat Gran (auto) Absolute Neuts (auto) Absolute Nucleated RBC Nucleated RBC % (auto) Sodium Potassium Chloride Carbon Dioxide Anion Gap BUN Creatinine 0.94 Estim Creat Clear Calc 123.9 Estimated GFR > 60 POC Glucose 211 H 227 H Random Glucose Calcium Random Vancomycin Phenytoin 11/05/22 11/06/22 11/06/22 20:37 06:35 06:35 WBC 6.0 RBC 3.40 L D Hgb 7.3 L D Hct 25.9 L D MCV 76.2 L MCH 21.5 L MCHC 28.2 L RDW 18.9 H Plt Count 288 MPV 10.2 Immature Gran % (Auto) 0.2 Neut % (Auto) 76.4 H Lymph % (Auto) 13.8 L [place] % (Auto) 7.1 Eos % (Auto) 2.2 Baso % (Auto) 0.3 Lymph # (Auto) 0.8 L [place] # (Auto) 0.4 Eos # (Auto) 0.1 Baso # (Auto) 0.0 Abs Immat Gran (auto) 0.01 Absolute Neuts (auto) 4.6 Absolute Nucleated RBC 0.000 Nucleated RBC % (auto) 0.0 Sodium 139 Potassium 2.8 L Chloride 98 Carbon Dioxide 33 H Anion Gap 11 L BUN 13 Creatinine 1.04 Estim Creat Clear Calc 116.0 Estimated GFR > 60 POC Glucose 138 H Random Glucose 241 H Calcium 8.1 L Random Vancomycin Phenytoin 11/06/22 11/06/22 11/06/22 06:35 07:39 11:00 WBC RBC Hgb Hct MCV MCH MCHC RDW Plt Count MPV Immature Gran % (Auto) Neut % (Auto) Lymph % (Auto) [place] % (Auto) Eos % (Auto) Baso % (Auto) Lymph # (Auto) [place] # (Auto) Eos # (Auto) Baso # (Auto) Abs Immat Gran (auto) Absolute Neuts (auto) Absolute Nucleated RBC Nucleated RBC % (auto) Sodium Potassium Chloride Carbon Dioxide Anion Gap BUN Creatinine Estim Creat Clear Calc Estimated GFR POC Glucose 211 H Random Glucose Calcium Random Vancomycin 14.9 L Phenytoin 7.5 L* 11/06/22 11:02 WBC RBC Hgb Hct MCV MCH MCHC RDW Plt Count MPV Immature Gran % (Auto) Neut % (Auto) Lymph % (Auto) [place] % (Auto) Eos % (Auto) Baso % (Auto) Lymph # (Auto) [place] # (Auto) Eos # (Auto) Baso # (Auto) Abs Immat Gran (auto) Absolute Neuts (auto) Absolute Nucleated RBC Nucleated RBC % (auto) Sodium Potassium Chloride Carbon Dioxide Anion Gap BUN Creatinine Estim Creat Clear Calc Estimated GFR POC Glucose 173 H Random Glucose Calcium Random Vancomycin Phenytoin Imaging Radiology Impressions: ITS Impressions Hand/Wrist X-Ray 10/07/22 22:07 IMPRESSION: Old healed fracture of the distal shaft of the fifth metacarpal bone and question old or healing fracture of the neck of the fourth metacarpal bone. No acute fracture. Foot X-Ray 10/11/22 12:56 IMPRESSION: RIGHT FOOT: Soft tissue ulceration at the distal aspect of the right great toe. Erosion/lucency through the distal tuft of the 1st distal phalanx, likely indicating osteomyelitis. LEFT FOOT: 1. Soft tissue ulceration along the distal/medial aspect of the great toe with circumferential soft tissue swelling. No radiopaque foreign body. No adjacent cortical erosion or periosteal reaction to suggest acute osteomyelitis, however, this may be occult on plain radiographs. 2. Severe osteoarthritis with prominent bony remodeling throughout the tibiotalar and midfoot joints, similar when compared to the prior radiographs from 2016. Foot X-Ray 10/11/22 12:56 IMPRESSION: RIGHT FOOT: Soft tissue ulceration at the distal aspect of the right great toe. Erosion/lucency through the distal tuft of the 1st distal phalanx, likely indicating osteomyelitis. LEFT FOOT: 1. Soft tissue ulceration along the distal/medial aspect of the great toe with circumferential soft tissue swelling. No radiopaque foreign body. No adjacent cortical erosion or periosteal reaction to suggest acute osteomyelitis, however, this may be occult on plain radiographs. 2. Severe osteoarthritis with prominent bony remodeling throughout the tibiotalar and midfoot joints, similar when compared to the prior radiographs from 2016. Duplex Scan Lower Extremity Artery 10/13/22 19:25 IMPRESSION: 1. No hemodynamically significant stenosis in the right lower extremity. 2. Incidental note is made of cardiac arrhythmia. Chest X-Ray 10/15/22 13:39 IMPRESSION: Right upper extremity PICC line tip projects over SVC. Medications Medications Current Medications Acetaminophen (Acetaminophen 325 Mg Tablet) 650 mg PO Q6H PRN PRN Reason: Headache/Pain Mild Scale (1-3) Last Admin: 10/30/22 20:27 Dose: 650 mg Al Hydroxide/Mg Hydroxide (Magnesium Hydrox/Alum Hydrox 30 Ml Oral.Susp) 30 ml PO Q6H PRN PRN Reason: Heartburn/Nausea Last Admin: 11/02/22 04:39 Dose: 30 ml Albuterol Sulfate (Albuterol Sulfate 90 Mcg 8 Gm Inhaler) 2 puff INHALE Q4H PRN PRN Reason: Shortness Of Breath Last Admin: 11/02/22 09:40 Dose: 2 puff Apixaban (Apixaban 5 Mg Tablet) 5 mg PO BID [facility] Last Admin: 11/06/22 09:06 Dose: 5 mg Aripiprazole (Aripiprazole 5 Mg Tablet) 7.5 mg PO DAILY [facility] Last Admin: 11/06/22 09:04 Dose: 7.5 mg Atorvastatin Calcium (Atorvastatin Calcium 80 Mg Tablet) 80 mg PO DAILY [facility] Last Admin: 11/06/22 09:07 Dose: 80 mg Diltiazem HCl (Diltiazem Hcl Cd 120 Mg Cap.Er.Deg) 120 mg PO DAILY@11 [facility]; Protocol Last Admin: 11/06/22 11:35 Dose: 120 mg Doxycycline Monohydrate (Doxycycline Monohydrate 100 Mg Capsule) 100 mg PO Q12H [facility] Stop: 12/23/22 09:01 Duloxetine HCl (Duloxetine Hcl 60 Mg Capsule.) 60 mg PO BID [facility] Last Admin: 11/06/22 09:04 Dose: 60 mg Ferrous Sulfate (Ferrous Sulfate 324 Mg Tablet.) 324 mg PO MoWeFr@0900 [facility] Last Admin: 11/05/22 08:43 Dose: Not Given Gabapentin (Gabapentin 400 Mg Capsule) 400 mg PO QID [facility] Last Admin: 11/06/22 09:04 Dose: 400 mg Glucose (Glucose Gel 15 Gm Gel..Gram.) 15 gm PO Q15M PRN; Protocol PRN Reason: per Hypoglycemia Standing Ord. Hydroxyzine HCl (Hydroxyzine Hcl 25 Mg Tablet) 25 mg PO TID PRN PRN Reason: Anxiety Last Admin: 11/02/22 04:01 Dose: 25 mg Dextrose (D10) 250 mls @ 750 mls/hr IV Q15M PRN; Protocol PRN Reason: per Hypoglycemia Standing Ord. Vancomycin HCl 750 mg/ Sodium (Chloride) 265 mls @ 265 mls/hr IV Q12H [facility] Stop: 11/24/22 13:59 Last Infusion: 11/06/22 03:14 Dose: Infused Ibuprofen (Ibuprofen 600 Mg Tablet) 600 mg PO Q6H PRN PRN Reason: Pain, Moderate(Pain Scale 4-6) Last Admin: 11/05/22 23:51 Dose: 600 mg Insulin Human Lispro (Insulin Lispro 100 Unit/Ml 3 Ml Vial) 0 unit SUBCUT QIDACHS [facility]; Protocol Last Admin: 11/06/22 11:21 Dose: 2 unit Lidocaine (Lidocaine 4 % Patch Adh..Patch) 1 patch TRANSDERMA DAILY [facility] Last Admin: 11/06/22 09:08 Dose: 1 patch Loperamide HCl (Loperamide Hcl 2 Mg Capsule) 2 mg PO Q4H PRN PRN Reason: Diarrhea Last Admin: 11/05/22 10:36 Dose: 2 mg Lorazepam (Lorazepam 1 Mg Tablet) 2 mg PO TID PRN PRN Reason: Anxiety Last Admin: 11/06/22 09:19 Dose: 2 mg Magnesium Hydroxide (Milk Of Magnesia 30 Ml Oral.Susp) 30 ml PO DAILY PRN PRN Reason: Constipation Last Admin: 10/08/22 15:52 Dose: 30 ml Melatonin (Melatonin 3 Mg Tablet) 3 mg PO BEDTIME PRN PRN Reason: Insomnia Last Admin: 11/02/22 21:37 Dose: 3 mg Metformin HCl (Metformin Hcl 1,000 Mg Tablet) 1,000 mg PO DAILY [facility] Last Admin: 11/06/22 09:04 Dose: 1,000 mg Metoprolol Succinate (Metoprolol Succinate Er 25 Mg Tab.Er.24h) 75 mg PO BID [facility]; Protocol Last Admin: 11/06/22 09:03 Dose: 75 mg Naproxen (Naproxen 500 Mg Tablet) 500 mg PO BID PRN PRN Reason: Knee pain Last Admin: 10/24/22 22:27 Dose: 500 mg Nitroglycerin (Nitroglycerin 0.4 Mg Tab.Subl) 0.4 mg SUBLINGUAL Q5M PRN PRN Reason: Chest Pain Nystatin (Nystatin Powder 15 Gm Bottle) 1 appl TOPICAL BID [facility]; Protocol Last Admin: 11/06/22 11:16 Dose: Not Given Omeprazole (Omeprazole 20 Mg Capsule.Dr) 20 mg PO DAILY@0630 [facility] Last Admin: 06/03/23 05:46 Dose: 20 mg Ondansetron HCl (Ondansetron Odt 4 Mg Tab.Rapdis) 4 mg TRANSLINGU Q8H PRN PRN Reason: Nausea Phenytoin Sodium (Phenytoin Sodium Extended 100 Mg Capsule) 200 mg PO DAILY [facility] Last Admin: 11/06/22 09:03 Dose: 200 mg Phenytoin Sodium (Phenytoin Sodium Extended 100 Mg Capsule) 400 mg PO BEDTIME YOHAN Last Admin: 11/05/22 21:08 Dose: 400 mg Quetiapine Fumarate (Quetiapine Fumarate 100 Mg Tablet) 100 mg PO BEDTIME PRN PRN Reason: Insomnia Last Admin: 11/01/22 02:02 Dose: 100 mg Quetiapine Fumarate (Quetiapine Fumarate 200 Mg Tablet) 200 mg PO BEDTIME [facility] Last Admin: 11/05/22 21:07 Dose: 200 mg Senna (Sennosides 8.6 Mg Tablet) 8.6 mg PO DAILY [facility] Last Admin: 11/06/22 11:15 Dose: Not Given Simethicone (Simethicone 80 Mg Tab.Chew) 80 mg PO TID PRN PRN Reason: Indigestion Sodium Chloride (0.9 % Sodium Chloride Flush 10 Ml Syringe) 5 ml IVFLUSH TID [facility] Last Admin: 11/06/22 09:03 Dose: 5 ml Torsemide (Torsemide 20 Mg Tablet) 40 mg PO DAILY [facility]; Protocol Last Admin: 11/06/22 09:06 Dose: 40 mg Trazodone HCl (Trazodone Hcl 50 Mg Tablet) 50 mg PO BEDTIME MRX1 PRN PRN Reason: Insomnia Last Admin: 10/28/22 23:48 Dose: 50 mg Trazodone HCl (Trazodone Hcl 50 Mg Tablet) 50 mg PO BEDTIME [facility] Last Admin: 11/05/22 21:07 Dose: 50 mg Allergies Allergies Allergy/AdvReac Type Severity Reaction Status Date / Time aspirin Allergy Severe OCCASIONAL Verified 04/08/22 14:18 RASH / TONGUE SWELLING, Hives, throat swellig bee pollen [BEE STINGS] Allergy Severe ANAPHYLAXIS Verified 04/08/22 14:18 Penicillins Allergy Severe ANAPHYLAXIS Verified 04/08/22 14:18 povidone-iodine [Betadine] Allergy Severe Redness of Verified 04/08/22 14:18 Skin soap [Betadine] Allergy Severe Redness of Verified 04/08/22 14:18 Skin spider venom [SPIDER BITES] Allergy Severe Hives Verified 04/08/22 14:18 amoxicillin Allergy Intermediate Hives Verified 04/08/22 14:18 clindamycin Allergy Mild RASH Verified 04/08/22 14:18 latex [Latex] Allergy Mild RASH Verified 04/08/22 14:18 shrimp Allergy Hives Verified 06/21/22 11:48 bupropion [From WELLBUTRIN] AdvReac Severe SEIZURES Verified 04/08/22 14:18 adhesive tape AdvReac Mild Rash Verified 04/14/22 15:55 Assessment & Plan Assessment & Plan (1) Atrial fibrillation with rapid ventricular response: Status: Acute Code(s): I48.91 - Unspecified atrial fibrillation Plan On checking pulse rate using his radial pulse, his rate is about 110/Min. On the recorded vital signs, some of the pulse rates are well within normal range but some of them are quite high up to 145/Min. With regard to the home regimen, listed to be on diltiazem ER 120 mg daily, metoprolol ER 70 mg daily and digoxin alternate days. Current meds however are diltiazem CD 1 20 mg daily with metoprolol at b.i.d. dosing. However, do not see digoxin. Echocardiogram from last year with LVEF of 55-60%. Normal right ventricular size and function. Mildly elevated right atrial pressure. IVC dilated. Other labs reviewed. Hemoglobin 9.7. White cell 6.2. Platelets 280. Potassium 3.5. Creatinine is 0.92. BUN is 18. High sensitivity troponins are well within normal range. Overall, atrial fibrillation with rapid rate could be from holding off on digoxin. Recommend starting it again. There is also discrepancy between what the patient is a send was reconciled. He states he is taking every day. Hence resume digoxin daily after loading dose and monitor EKGs periodically. Will follow as needed. Discussed with psychiatry as well as hospitalist service. Plan 1. Continue with Cymbalta 60 mg p.o. b.i.d. to target depression. At this moment the patient is not suicidal. 2. Continue with medical workout and treatment of osteomyelitis with IV and vancomycin. We will follow the recommendations of Medicine. 3. Waiting for placement 4. Speech and swallow consult done, no new recommendations. Reason for continued inpatient stay Substantial Risk for: inability to function, rapid decompensation and med/psych decompensation Time Spent With Patient Time: Total time managing care of this patient today __20__ minutes.
[2022-11-06] MEDS: vancomycin HCL 750 MG in 0.9 % Sodium Chloride 250 ML 250 MG IV (12:06)
--- NOTE | 2022-11-06 12:46 | PC.NURSE ---
Pt. reuested IV Vancomycin infusion stopped when staff declined to play suicide themed movie on TV in common area. Dr. Munoz informed via [employer].
[2022-11-06 16:36] LABS: Glucose, Whole Blood 159 mg/dL (60-115)
[2022-11-06 18:00] VITALS: BP 117/73; PULSE 100; RESP 18; TEMP 36.5; O2SAT 97
[2022-11-06 19:57] LABS: Glucose, Whole Blood 167 mg/dL (60-115)
[2022-11-06] MEDS: Phenytoin Sodium Extended 100 MG CAPSULE 400 MG PO (21:00)
[2022-11-06] MEDS: traZODone HCL 50 MG TABLET PO (21:01)
[2022-11-06] MEDS: QUEtiapine Fumarate 200 MG TABLET PO (21:01)
[2022-11-07] MEDS: vancomycin HCL 750 MG in 0.9 % Sodium Chloride 250 ML 250 MG IV ×2 (00:50→12:10)
[2022-11-07] MEDS: LORazepam 1 MG TABLET 2 MG PO ×3 (01:03→15:51)
[2022-11-07] MEDS: Omeprazole 20 MG CAPSULE.DR PO (06:22)
[2022-11-07 07:36] LABS: Glucose, Whole Blood 227 mg/dL (60-115)
[2022-11-07 08:44] VITALS: BP 129/74; PULSE 108; RESP 18; TEMP 37; O2SAT 93
[2022-11-07] MEDS: Insulin Lispro 100 UNIT/ML 3 ML VIAL SUBCUT ×4 (09:08→20:11)
[2022-11-07] MEDS: 0.9 % Sodium Chloride Flush 10 ML SYRINGE 5 ML IVFLUSH ×2 (09:08→16:24)
[2022-11-07] MEDS: Atorvastatin Calcium 80 MG TABLET PO (09:10)
[2022-11-07] MEDS: Metoprolol Succinate ER 25 MG TAB.ER.24H 75 MG PO ×2 (09:10→20:02)
[2022-11-07] MEDS: Gabapentin 400 MG CAPSULE PO ×4 (09:10→20:03)
[2022-11-07] MEDS: metFORMIN HCl 1,000 MG TABLET 1000 MG PO (09:10)
[2022-11-07] MEDS: Apixaban 5 MG TABLET PO ×2 (09:10→20:03)
[2022-11-07] MEDS: Phenytoin Sodium Extended 100 MG CAPSULE 200 MG PO (09:10)
[2022-11-07] MEDS: Torsemide 20 MG TABLET 40 MG PO (09:11)
[2022-11-07] MEDS: DULoxetine HCl 60 MG CAPSULE.DR PO ×2 (09:11→20:02)
[2022-11-07] MEDS: ARIPiprazole 5 MG TABLET 7.5 MG PO (09:11)
[2022-11-07] MEDS: Nystatin Powder 15 GM BOTTLE 1 APPL TOPICAL (09:14)
[2022-11-07] MEDS: Lidocaine 4 % Patch ADH..PATCH 1 PATCH TRANSDERMA (09:15)
--- NOTE | 2022-11-07 09:30 | HO.PSYCHPN ---
Subjective Subjective Date of Service: 11/07/22 Reason For Visit: Major depressive disorder Subjective Notes: Conditional Voluntary Interim History: The nursing staff reported the patient has been pleasant no violent outburst. His Dilantin level was low. On interview the patient denies new symptoms, waiting for placement. Mental Status Exam Mental Status Exam Patient Appearance: Well Grooomed and Appropriate Patient Orientation: Person and Situation Level of Consciousness: Awake and Appropriate Patient Behavior: Guarded and Passive Mood Description: Withdrawn Affect Description: Constricted Patient Cognition Impaired: Yes Ability to Follow Directions: Good Speech Pattern: Clear Hallucinations: None Delusions: Not Present Thought Process: Linear Thought Content: positive for Circumstantial Judgement: Fair Diagnostics Vital Signs (24Hr): Vital Signs - 24 hr 11/06/22 11:23 11/06/22 18:00 11/07/22 08:44 Temperature 97.0 F 97.7 F 98.6 F Pulse Rate 102 H 100 108 H Respiratory Rate 18 18 Blood Pressure 103/68 117/73 129/74 Pulse Oximetry 97 93 Oxygen Delivery Method Room Air Room Air BMI result Body Mass Index 43.8 Labs 11/06/22 06:35 11/06/22 06:35 Labs: Laboratory Results - last 48 hr 11/05/22 11/05/22 11/05/22 11:19 16:37 20:37 WBC RBC Hgb Hct MCV MCH MCHC RDW Plt Count MPV Immature Gran % (Auto) Neut % (Auto) Lymph % (Auto) [place] % (Auto) Eos % (Auto) Baso % (Auto) Lymph # (Auto) [place] # (Auto) Eos # (Auto) Baso # (Auto) Abs Immat Gran (auto) Absolute Neuts (auto) Absolute Nucleated RBC Nucleated RBC % (auto) Sodium Potassium Chloride Carbon Dioxide Anion Gap BUN Creatinine Estim Creat Clear Calc Estimated GFR POC Glucose 211 H 227 H 138 H Random Glucose Calcium Random Vancomycin Phenytoin 11/06/22 11/06/22 11/06/22 06:35 06:35 06:35 WBC 6.0 RBC 3.40 L D Hgb 7.3 L D Hct 25.9 L D MCV 76.2 L MCH 21.5 L MCHC 28.2 L RDW 18.9 H Plt Count 288 MPV 10.2 Immature Gran % (Auto) 0.2 Neut % (Auto) 76.4 H Lymph % (Auto) 13.8 L [place] % (Auto) 7.1 Eos % (Auto) 2.2 Baso % (Auto) 0.3 Lymph # (Auto) 0.8 L [place] # (Auto) 0.4 Eos # (Auto) 0.1 Baso # (Auto) 0.0 Abs Immat Gran (auto) 0.01 Absolute Neuts (auto) 4.6 Absolute Nucleated RBC 0.000 Nucleated RBC % (auto) 0.0 Sodium 139 Potassium 2.8 L Chloride 98 Carbon Dioxide 33 H Anion Gap 11 L BUN 13 Creatinine 1.04 Estim Creat Clear Calc 116.0 Estimated GFR > 60 POC Glucose Random Glucose 241 H Calcium 8.1 L Random Vancomycin Phenytoin 7.5 L* 11/06/22 11/06/22 11/06/22 07:39 11:00 11:02 WBC RBC Hgb Hct MCV MCH MCHC RDW Plt Count MPV Immature Gran % (Auto) Neut % (Auto) Lymph % (Auto) [place] % (Auto) Eos % (Auto) Baso % (Auto) Lymph # (Auto) [place] # (Auto) Eos # (Auto) Baso # (Auto) Abs Immat Gran (auto) Absolute Neuts (auto) Absolute Nucleated RBC Nucleated RBC % (auto) Sodium Potassium Chloride Carbon Dioxide Anion Gap BUN Creatinine Estim Creat Clear Calc Estimated GFR POC Glucose 211 H 173 H Random Glucose Calcium Random Vancomycin 14.9 L Phenytoin 11/06/22 11/06/22 11/07/22 16:28 19:40 07:28 WBC RBC Hgb Hct MCV MCH MCHC RDW Plt Count MPV Immature Gran % (Auto) Neut % (Auto) Lymph % (Auto) [place] % (Auto) Eos % (Auto) Baso % (Auto) Lymph # (Auto) [place] # (Auto) Eos # (Auto) Baso # (Auto) Abs Immat Gran (auto) Absolute Neuts (auto) Absolute Nucleated RBC Nucleated RBC % (auto) Sodium Potassium Chloride Carbon Dioxide Anion Gap BUN Creatinine Estim Creat Clear Calc Estimated GFR POC Glucose 159 H 167 H 227 H Random Glucose Calcium Random Vancomycin Phenytoin Imaging Radiology Impressions: ITS Impressions Hand/Wrist X-Ray 10/07/22 22:07 IMPRESSION: Old healed fracture of the distal shaft of the fifth metacarpal bone and question old or healing fracture of the neck of the fourth metacarpal bone. No acute fracture. Foot X-Ray 10/11/22 12:56 IMPRESSION: RIGHT FOOT: Soft tissue ulceration at the distal aspect of the right great toe. Erosion/lucency through the distal tuft of the 1st distal phalanx, likely indicating osteomyelitis. LEFT FOOT: 1. Soft tissue ulceration along the distal/medial aspect of the great toe with circumferential soft tissue swelling. No radiopaque foreign body. No adjacent cortical erosion or periosteal reaction to suggest acute osteomyelitis, however, this may be occult on plain radiographs. 2. Severe osteoarthritis with prominent bony remodeling throughout the tibiotalar and midfoot joints, similar when compared to the prior radiographs from 2016. Foot X-Ray 10/11/22 12:56 IMPRESSION: RIGHT FOOT: Soft tissue ulceration at the distal aspect of the right great toe. Erosion/lucency through the distal tuft of the 1st distal phalanx, likely indicating osteomyelitis. LEFT FOOT: 1. Soft tissue ulceration along the distal/medial aspect of the great toe with circumferential soft tissue swelling. No radiopaque foreign body. No adjacent cortical erosion or periosteal reaction to suggest acute osteomyelitis, however, this may be occult on plain radiographs. 2. Severe osteoarthritis with prominent bony remodeling throughout the tibiotalar and midfoot joints, similar when compared to the prior radiographs from 2016. Duplex Scan Lower Extremity Artery 10/13/22 19:25 IMPRESSION: 1. No hemodynamically significant stenosis in the right lower extremity. 2. Incidental note is made of cardiac arrhythmia. Chest X-Ray 10/15/22 13:39 IMPRESSION: Right upper extremity PICC line tip projects over SVC. Medications Medications Current Medications Acetaminophen (Acetaminophen 325 Mg Tablet) 650 mg PO Q6H PRN PRN Reason: Headache/Pain Mild Scale (1-3) Last Admin: 10/30/22 20:27 Dose: 650 mg Al Hydroxide/Mg Hydroxide (Magnesium Hydrox/Alum Hydrox 30 Ml Oral.Susp) 30 ml PO Q6H PRN PRN Reason: Heartburn/Nausea Last Admin: 11/02/22 04:39 Dose: 30 ml Albuterol Sulfate (Albuterol Sulfate 90 Mcg 8 Gm Inhaler) 2 puff INHALE Q4H PRN PRN Reason: Shortness Of Breath Last Admin: 11/02/22 09:40 Dose: 2 puff Apixaban (Apixaban 5 Mg Tablet) 5 mg PO BID YOHAN Last Admin: 11/07/22 09:10 Dose: 5 mg Aripiprazole (Aripiprazole 5 Mg Tablet) 7.5 mg PO DAILY [facility] Last Admin: 11/07/22 09:11 Dose: 7.5 mg Atorvastatin Calcium (Atorvastatin Calcium 80 Mg Tablet) 80 mg PO DAILY [facility] Last Admin: 11/07/22 09:10 Dose: 80 mg Diltiazem HCl (Diltiazem Hcl Cd 120 Mg Cap.Er.Deg) 120 mg PO DAILY@11 [facility]; Protocol Last Admin: 11/06/22 11:35 Dose: 120 mg Doxycycline Monohydrate (Doxycycline Monohydrate 100 Mg Capsule) 100 mg PO Q12H [facility] Stop: 12/23/22 09:01 Duloxetine HCl (Duloxetine Hcl 60 Mg Capsule.) 60 mg PO BID [facility] Last Admin: 11/07/22 09:11 Dose: 60 mg Ferrous Sulfate (Ferrous Sulfate 324 Mg Tablet.) 324 mg PO MoWeFr@0900 [facility] Last Admin: 11/05/22 08:43 Dose: Not Given Gabapentin (Gabapentin 400 Mg Capsule) 400 mg PO QID [facility] Last Admin: 11/07/22 09:10 Dose: 400 mg Glucose (Glucose Gel 15 Gm Gel..Gram.) 15 gm PO Q15M PRN; Protocol PRN Reason: per Hypoglycemia Standing Ord. Hydroxyzine HCl (Hydroxyzine Hcl 25 Mg Tablet) 25 mg PO TID PRN PRN Reason: Anxiety Last Admin: 11/02/22 04:01 Dose: 25 mg Dextrose (D10) 250 mls @ 750 mls/hr IV Q15M PRN; Protocol PRN Reason: per Hypoglycemia Standing Ord. Vancomycin HCl 750 mg/ Sodium (Chloride) 265 mls @ 265 mls/hr IV Q12H [facility] Stop: 11/24/22 13:59 Last Infusion: 11/07/22 02:33 Dose: Infused Ibuprofen (Ibuprofen 600 Mg Tablet) 600 mg PO Q6H PRN PRN Reason: Pain, Moderate(Pain Scale 4-6) Last Admin: 11/05/22 23:51 Dose: 600 mg Insulin Human Lispro (Insulin Lispro 100 Unit/Ml 3 Ml Vial) 0 unit SUBCUT QIDACHS [facility]; Protocol Last Admin: 11/07/22 09:08 Dose: 4 unit Lidocaine (Lidocaine 4 % Patch Adh..Patch) 1 patch TRANSDERMA DAILY [facility] Last Admin: 11/07/22 09:15 Dose: 1 patch Loperamide HCl (Loperamide Hcl 2 Mg Capsule) 2 mg PO Q4H PRN PRN Reason: Diarrhea Last Admin: 11/05/22 10:36 Dose: 2 mg Lorazepam (Lorazepam 1 Mg Tablet) 2 mg PO TID PRN PRN Reason: Anxiety Last Admin: 11/07/22 09:28 Dose: 2 mg Magnesium Hydroxide (Milk Of Magnesia 30 Ml Oral.Susp) 30 ml PO DAILY PRN PRN Reason: Constipation Last Admin: 10/08/22 15:52 Dose: 30 ml Melatonin (Melatonin 3 Mg Tablet) 3 mg PO BEDTIME PRN PRN Reason: Insomnia Last Admin: 11/02/22 21:37 Dose: 3 mg Metformin HCl (Metformin Hcl 1,000 Mg Tablet) 1,000 mg PO DAILY [facility] Last Admin: 11/07/22 09:10 Dose: 1,000 mg Metoprolol Succinate (Metoprolol Succinate Er 25 Mg Tab.Er.24h) 75 mg PO BID [facility]; Protocol Last Admin: 11/07/22 09:10 Dose: 75 mg Naproxen (Naproxen 500 Mg Tablet) 500 mg PO BID PRN PRN Reason: Knee pain Last Admin: 10/24/22 22:27 Dose: 500 mg Nitroglycerin (Nitroglycerin 0.4 Mg Tab.Subl) 0.4 mg SUBLINGUAL Q5M PRN PRN Reason: Chest Pain Nystatin (Nystatin Powder 15 Gm Bottle) 1 appl TOPICAL BID [facility]; Protocol Last Admin: 11/07/22 09:14 Dose: 1 appl Omeprazole (Omeprazole 20 Mg Capsule.Dr) 20 mg PO DAILY@0630 [facility] Last Admin: 11/07/22 06:22 Dose: 20 mg Ondansetron HCl (Ondansetron Odt 4 Mg Tab.Rapdis) 4 mg TRANSLINGU Q8H PRN PRN Reason: Nausea Phenytoin Sodium (Phenytoin Sodium Extended 100 Mg Capsule) 200 mg PO DAILY [facility] Last Admin: 11/07/22 09:10 Dose: 200 mg Phenytoin Sodium (Phenytoin Sodium Extended 100 Mg Capsule) 400 mg PO BEDTIME [facility] Last Admin: 11/06/22 21:00 Dose: 400 mg Quetiapine Fumarate (Quetiapine Fumarate 100 Mg Tablet) 100 mg PO BEDTIME PRN PRN Reason: Insomnia Last Admin: 11/01/22 02:02 Dose: 100 mg Quetiapine Fumarate (Quetiapine Fumarate 200 Mg Tablet) 200 mg PO BEDTIME [facility] Last Admin: 11/06/22 21:01 Dose: 200 mg Senna (Sennosides 8.6 Mg Tablet) 8.6 mg PO DAILY [facility] Last Admin: 11/07/22 09:17 Dose: Not Given Simethicone (Simethicone 80 Mg Tab.Chew) 80 mg PO TID PRN PRN Reason: Indigestion Sodium Chloride (0.9 % Sodium Chloride Flush 10 Ml Syringe) 5 ml IVFLUSH TID YOHAN Last Admin: 11/07/22 09:08 Dose: 5 ml Torsemide (Torsemide 20 Mg Tablet) 40 mg PO DAILY [facility]; Protocol Last Admin: 11/07/22 09:11 Dose: 40 mg Trazodone HCl (Trazodone Hcl 50 Mg Tablet) 50 mg PO BEDTIME MRX1 PRN PRN Reason: Insomnia Last Admin: 10/28/22 23:48 Dose: 50 mg Trazodone HCl (Trazodone Hcl 50 Mg Tablet) 50 mg PO BEDTIME YOHAN Last Admin: 11/06/22 21:01 Dose: 50 mg Allergies Allergies Allergy/AdvReac Type Severity Reaction Status Date / Time aspirin Allergy Severe OCCASIONAL Verified 04/08/22 14:18 RASH / TONGUE SWELLING, Hives, throat swellig bee pollen [BEE STINGS] Allergy Severe ANAPHYLAXIS Verified 04/08/22 14:18 Penicillins Allergy Severe ANAPHYLAXIS Verified 04/08/22 14:18 povidone-iodine [Betadine] Allergy Severe Redness of Verified 04/08/22 14:18 Skin soap [Betadine] Allergy Severe Redness of Verified 04/08/22 14:18 Skin spider venom [SPIDER BITES] Allergy Severe Hives Verified 04/08/22 14:18 amoxicillin Allergy Intermediate Hives Verified 04/08/22 14:18 clindamycin Allergy Mild RASH Verified 04/08/22 14:18 latex [Latex] Allergy Mild RASH Verified 04/08/22 14:18 shrimp Allergy Hives Verified 06/21/22 11:48 bupropion [From WELLBUTRIN] AdvReac Severe SEIZURES Verified 04/08/22 14:18 adhesive tape AdvReac Mild Rash Verified 04/14/22 15:55 Assessment & Plan Assessment & Plan (1) Atrial fibrillation with rapid ventricular response: Status: Acute Code(s): I48.91 - Unspecified atrial fibrillation Plan On checking pulse rate using his radial pulse, his rate is about 110/Min. On the recorded vital signs, some of the pulse rates are well within normal range but some of them are quite high up to 145/Min. With regard to the home regimen, listed to be on diltiazem ER 120 mg daily, metoprolol ER 70 mg daily and digoxin alternate days. Current meds however are diltiazem CD 1 20 mg daily with metoprolol at b.i.d. dosing. However, do not see digoxin. Echocardiogram from last year with LVEF of 55-60%. Normal right ventricular size and function. Mildly elevated right atrial pressure. IVC dilated. Other labs reviewed. Hemoglobin 9.7. White cell 6.2. Platelets 280. Potassium 3.5. Creatinine is 0.92. BUN is 18. High sensitivity troponins are well within normal range. Overall, atrial fibrillation with rapid rate could be from holding off on digoxin. Recommend starting it again. There is also discrepancy between what the patient is a send was reconciled. He states he is taking every day. Hence resume digoxin daily after loading dose and monitor EKGs periodically. Will follow as needed. Discussed with psychiatry as well as hospitalist service. Plan 1. Continue with Cymbalta 60 mg p.o. b.i.d. to target depression. At this moment the patient is not suicidal. 2. Continue with medical workout and treatment of osteomyelitis with IV and vancomycin. We will follow the recommendations of Medicine. 3. Waiting for placement 4. Speech and swallow consult done, no new recommendations. Reason for continued inpatient stay Substantial Risk for: inability to function, rapid decompensation and med/psych decompensation Time Spent With Patient Time: Total time managing care of this patient today __20__ minutes.
[2022-11-07 11:09] LABS: Creatinine Clr Calc Pharmacy 124.3; Estimated Glomerular Filt Rate > 60
[2022-11-07 11:11] LABS: Glucose, Whole Blood 163 mg/dL (60-115)
[2022-11-07 11:11] LABS: Vancomycin Random 14.1 mcg/mL (15-20)
[2022-11-07] MEDS: dilTIAZem HCL CD 120 MG CAP.ER.DEG PO (11:25)
--- NOTE | 2022-11-07 14:52 | PC.RT ---
pt has been refusing to wear cpap at night since october 25. therefore the nmachine will be pulled from pt's room. Will notify
[2022-11-07 16:20] LABS: Glucose, Whole Blood 160 mg/dL (60-115)
[2022-11-07 18:30] VITALS: BP 129/71; PULSE 108; RESP 18; TEMP 37; O2SAT 92
[2022-11-07 20:02] LABS: Glucose, Whole Blood 195 mg/dL (60-115)
[2022-11-07] MEDS: traZODone HCL 50 MG TABLET PO (20:03)
[2022-11-07] MEDS: QUEtiapine Fumarate 200 MG TABLET PO (20:04)
[2022-11-07] MEDS: Phenytoin Sodium Extended 100 MG CAPSULE 400 MG PO (20:04)
[2022-11-07] MEDS: QUEtiapine Fumarate 100 MG TABLET PO (21:35)
[2022-11-08] MEDS: vancomycin HCL 750 MG in 0.9 % Sodium Chloride 250 ML 250 MG IV ×2 (02:07→13:13)
[2022-11-08] MEDS: 0.9 % Sodium Chloride Flush 10 ML SYRINGE 5 ML IVFLUSH ×3 (02:11→20:51)
[2022-11-08 06:00] VITALS: BP 131/77; PULSE 111; RESP 17; TEMP 36.4; O2SAT 93
[2022-11-08] MEDS: Omeprazole 20 MG CAPSULE.DR PO (06:19)
[2022-11-08 08:07] LABS: Glucose, Whole Blood 165 mg/dL (60-115)
[2022-11-08] MEDS: Insulin Lispro 100 UNIT/ML 3 ML VIAL SUBCUT ×2 (08:15→12:03)
[2022-11-08] MEDS: ARIPiprazole 5 MG TABLET 7.5 MG PO (08:19)
[2022-11-08] MEDS: Apixaban 5 MG TABLET PO ×2 (08:19→20:08)
[2022-11-08] MEDS: Metoprolol Succinate ER 25 MG TAB.ER.24H 75 MG PO ×2 (08:19→20:08)
[2022-11-08] MEDS: DULoxetine HCl 60 MG CAPSULE.DR PO ×2 (08:19→20:07)
[2022-11-08] MEDS: LORazepam 1 MG TABLET 2 MG PO ×3 (08:20→21:14)
[2022-11-08] MEDS: Phenytoin Sodium Extended 100 MG CAPSULE 200 MG PO (08:20)
[2022-11-08] MEDS: metFORMIN HCl 1,000 MG TABLET 1000 MG PO (08:20)
[2022-11-08] MEDS: Torsemide 20 MG TABLET 40 MG PO (08:20)
[2022-11-08] MEDS: Atorvastatin Calcium 80 MG TABLET PO (08:20)
[2022-11-08] MEDS: Gabapentin 400 MG CAPSULE PO ×4 (08:20→20:07)
[2022-11-08 09:10] LABS: Creatinine Clr Calc Pharmacy 131.1; Estimated Glomerular Filt Rate > 60
[2022-11-08] MEDS: Acetaminophen 325 MG TABLET 650 MG PO (10:31)
[2022-11-08 11:49] LABS: Glucose, Whole Blood 185 mg/dL (60-115)
[2022-11-08] MEDS: dilTIAZem HCL CD 120 MG CAP.ER.DEG PO (12:03)
[2022-11-08 12:37] LABS: Vancomycin Random 14.3 mcg/mL (15-20)
[2022-11-08 16:23] LABS: Glucose, Whole Blood 195 mg/dL (60-115)
--- NOTE | 2022-11-08 16:23 | P.PNPSI_ITS ---
Subjective Subjective Date of Service: 11/08/22 Reason For Visit: Major depressive disorder Subjective Notes: Conditional Voluntary Interim History: The nursing staff reported no changes in his mental status, pleasant cooperative. Compliant with treatment. On interview the patient denies new symptoms. The addiction social worker reported the there is no beds available at this point. Mental Status Exam Mental Status Exam Patient Appearance: Well Grooomed and Appropriate Patient Orientation: Person and Situation Level of Consciousness: Awake and Appropriate Patient Behavior: Guarded and Passive Mood Description: Withdrawn Affect Description: Constricted Patient Cognition Impaired: Yes Ability to Follow Directions: Good Speech Pattern: Clear Hallucinations: None Delusions: Not Present Thought Process: Distracted Thought Content: positive for Gilbert and positive for Circumstantial Judgement: Fair Diagnostics Vital Signs (24Hr): Vital Signs - 24 hr 11/07/22 18:30 11/08/22 06:00 Temperature 98.6 F 97.5 F Pulse Rate 108 H 111 H Respiratory Rate 18 17 Blood Pressure 129/71 131/77 Pulse Oximetry 92 93 Oxygen Delivery Method Room Air Room Air BMI result Body Mass Index 43.8 Labs 11/06/22 06:35 11/08/22 08:45 Labs: Laboratory Results - last 48 hr 11/06/22 11/06/22 11/07/22 16:28 19:40 07:28 Creatinine Estim Creat Clear Calc Estimated GFR POC Glucose 159 H 167 H 227 H Random Vancomycin 11/07/22 11/07/22 11/07/22 10:50 10:50 11:08 Creatinine 0.97 Estim Creat Clear Calc 124.3 Estimated GFR > 60 POC Glucose 163 H Random Vancomycin 14.1 L 11/07/22 11/07/22 11/08/22 16:10 19:57 07:55 Creatinine Estim Creat Clear Calc Estimated GFR POC Glucose 160 H 195 H 165 H Random Vancomycin 11/08/22 11/08/22 11/08/22 08:45 11:46 12:16 Creatinine 0.92 Estim Creat Clear Calc 131.1 Estimated GFR > 60 POC Glucose 185 H Random Vancomycin 14.3 L Imaging Radiology Impressions: ITS Impressions Hand/Wrist X-Ray 10/07/22 22:07 IMPRESSION: Old healed fracture of the distal shaft of the fifth metacarpal bone and question old or healing fracture of the neck of the fourth metacarpal bone. No acute fracture. Foot X-Ray 10/11/22 12:56 IMPRESSION: RIGHT FOOT: Soft tissue ulceration at the distal aspect of the right great toe. Erosion/lucency through the distal tuft of the 1st distal phalanx, likely indicating osteomyelitis. LEFT FOOT: 1. Soft tissue ulceration along the distal/medial aspect of the great toe with circumferential soft tissue swelling. No radiopaque foreign body. No adjacent cortical erosion or periosteal reaction to suggest acute osteomyelitis, however, this may be occult on plain radiographs. 2. Severe osteoarthritis with prominent bony remodeling throughout the tibiotalar and midfoot joints, similar when compared to the prior radiographs from 2016. Foot X-Ray 10/11/22 12:56 IMPRESSION: RIGHT FOOT: Soft tissue ulceration at the distal aspect of the right great toe. Erosion/lucency through the distal tuft of the 1st distal phalanx, likely indicating osteomyelitis. LEFT FOOT: 1. Soft tissue ulceration along the distal/medial aspect of the great toe with circumferential soft tissue swelling. No radiopaque foreign body. No adjacent cortical erosion or periosteal reaction to suggest acute osteomyelitis, however, this may be occult on plain radiographs. 2. Severe osteoarthritis with prominent bony remodeling throughout the tibiotalar and midfoot joints, similar when compared to the prior radiographs from 2016. Duplex Scan Lower Extremity Artery 10/13/22 19:25 IMPRESSION: 1. No hemodynamically significant stenosis in the right lower extremity. 2. Incidental note is made of cardiac arrhythmia. Chest X-Ray 10/15/22 13:39 IMPRESSION: Right upper extremity PICC line tip projects over SVC. Medications Medications Current Medications Acetaminophen (Acetaminophen 325 Mg Tablet) 650 mg PO Q6H PRN PRN Reason: Headache/Pain Mild Scale (1-3) Last Admin: 11/08/22 10:31 Dose: 650 mg Al Hydroxide/Mg Hydroxide (Magnesium Hydrox/Alum Hydrox 30 Ml Oral.Susp) 30 ml PO Q6H PRN PRN Reason: Heartburn/Nausea Last Admin: 11/02/22 04:39 Dose: 30 ml Albuterol Sulfate (Albuterol Sulfate 90 Mcg 8 Gm Inhaler) 2 puff INHALE Q4H PRN PRN Reason: Shortness Of Breath Last Admin: 11/02/22 09:40 Dose: 2 puff Apixaban (Apixaban 5 Mg Tablet) 5 mg PO BID YOHAN Last Admin: 11/08/22 08:19 Dose: 5 mg Aripiprazole (Aripiprazole 5 Mg Tablet) 7.5 mg PO DAILY [facility] Last Admin: 11/08/22 08:19 Dose: 7.5 mg Atorvastatin Calcium (Atorvastatin Calcium 80 Mg Tablet) 80 mg PO DAILY [facility] Last Admin: 11/08/22 08:20 Dose: 80 mg Diltiazem HCl (Diltiazem Hcl Cd 120 Mg Cap.Er.Deg) 120 mg PO DAILY@11 [facility]; Protocol Last Admin: 11/08/22 12:03 Dose: 120 mg Doxycycline Monohydrate (Doxycycline Monohydrate 100 Mg Capsule) 100 mg PO Q12H [facility] Stop: 12/23/22 09:01 Duloxetine HCl (Duloxetine Hcl 60 Mg Capsule.) 60 mg PO BID [facility] Last Admin: 11/08/22 08:19 Dose: 60 mg Ferrous Sulfate (Ferrous Sulfate 324 Mg Tablet.) 324 mg PO MoWeFr@0900 [facility] Last Admin: 11/08/22 08:32 Dose: Not Given Gabapentin (Gabapentin 400 Mg Capsule) 400 mg PO QID [facility] Last Admin: 11/08/22 12:03 Dose: 400 mg Glucose (Glucose Gel 15 Gm Gel..Gram.) 15 gm PO Q15M PRN; Protocol PRN Reason: per Hypoglycemia Standing Ord. Hydroxyzine HCl (Hydroxyzine Hcl 25 Mg Tablet) 25 mg PO TID PRN PRN Reason: Anxiety Last Admin: 11/02/22 04:01 Dose: 25 mg Dextrose (D10) 250 mls @ 750 mls/hr IV Q15M PRN; Protocol PRN Reason: per Hypoglycemia Standing Ord. Vancomycin HCl 750 mg/ Sodium (Chloride) 265 mls @ 265 mls/hr IV Q12H [facility] Stop: 11/24/22 13:59 Last Infusion: 11/08/22 14:27 Dose: Infused Ibuprofen (Ibuprofen 600 Mg Tablet) 600 mg PO Q6H PRN PRN Reason: Pain, Moderate(Pain Scale 4-6) Last Admin: 11/05/22 23:51 Dose: 600 mg Insulin Human Lispro (Insulin Lispro 100 Unit/Ml 3 Ml Vial) 0 unit SUBCUT QIDACHS [facility]; Protocol Last Admin: 11/08/22 12:03 Dose: 2 unit Lidocaine (Lidocaine 4 % Patch Adh..Patch) 1 patch TRANSDERMA DAILY [facility] Last Admin: 11/08/22 08:32 Dose: Not Given Loperamide HCl (Loperamide Hcl 2 Mg Capsule) 2 mg PO Q4H PRN PRN Reason: Diarrhea Last Admin: 11/05/22 10:36 Dose: 2 mg Lorazepam (Lorazepam 1 Mg Tablet) 2 mg PO TID PRN PRN Reason: Anxiety Last Admin: 11/08/22 16:09 Dose: 2 mg Magnesium Hydroxide (Milk Of Magnesia 30 Ml Oral.Susp) 30 ml PO DAILY PRN PRN Reason: Constipation Last Admin: 10/08/22 15:52 Dose: 30 ml Melatonin (Melatonin 3 Mg Tablet) 3 mg PO BEDTIME PRN PRN Reason: Insomnia Last Admin: 11/02/22 21:37 Dose: 3 mg Metformin HCl (Metformin Hcl 1,000 Mg Tablet) 1,000 mg PO DAILY [facility] Last Admin: 11/08/22 08:20 Dose: 1,000 mg Metoprolol Succinate (Metoprolol Succinate Er 25 Mg Tab.Er.24h) 75 mg PO BID [facility]; Protocol Last Admin: 11/08/22 08:19 Dose: 75 mg Naproxen (Naproxen 500 Mg Tablet) 500 mg PO BID PRN PRN Reason: Knee pain Last Admin: 10/24/22 22:27 Dose: 500 mg Nitroglycerin (Nitroglycerin 0.4 Mg Tab.Subl) 0.4 mg SUBLINGUAL Q5M PRN PRN Reason: Chest Pain Nystatin (Nystatin Powder 15 Gm Bottle) 1 appl TOPICAL BID [facility]; Protocol Last Admin: 11/08/22 08:32 Dose: Not Given Omeprazole (Omeprazole 20 Mg Capsule.Dr) 20 mg PO DAILY@0630 [facility] Last Admin: 11/08/22 06:19 Dose: 20 mg Ondansetron HCl (Ondansetron Odt 4 Mg Tab.Rapdis) 4 mg TRANSLINGU Q8H PRN PRN Reason: Nausea Phenytoin Sodium (Phenytoin Sodium Extended 100 Mg Capsule) 200 mg PO DAILY [facility] Last Admin: 11/08/22 08:20 Dose: 200 mg Phenytoin Sodium (Phenytoin Sodium Extended 100 Mg Capsule) 400 mg PO BEDTIME [facility] Last Admin: 11/07/22 20:04 Dose: 400 mg Quetiapine Fumarate (Quetiapine Fumarate 100 Mg Tablet) 100 mg PO BEDTIME PRN PRN Reason: Insomnia Last Admin: 11/07/22 21:35 Dose: 100 mg Quetiapine Fumarate (Quetiapine Fumarate 200 Mg Tablet) 200 mg PO BEDTIME [facility] Last Admin: 11/07/22 20:04 Dose: 200 mg Senna (Sennosides 8.6 Mg Tablet) 8.6 mg PO DAILY [facility] Last Admin: 11/08/22 08:32 Dose: Not Given Simethicone (Simethicone 80 Mg Tab.Chew) 80 mg PO TID PRN PRN Reason: Indigestion Sodium Chloride (0.9 % Sodium Chloride Flush 10 Ml Syringe) 5 ml IVFLUSH TID [facility] Last Admin: 11/08/22 14:27 Dose: Not Given Torsemide (Torsemide 20 Mg Tablet) 40 mg PO DAILY [facility]; Protocol Last Admin: 11/08/22 08:20 Dose: 40 mg Trazodone HCl (Trazodone Hcl 50 Mg Tablet) 50 mg PO BEDTIME MRX1 PRN PRN Reason: Insomnia Last Admin: 10/28/22 23:48 Dose: 50 mg Trazodone HCl (Trazodone Hcl 50 Mg Tablet) 50 mg PO BEDTIME [facility] Last Admin: 11/07/22 20:03 Dose: 50 mg Allergies Allergies Allergy/AdvReac Type Severity Reaction Status Date / Time aspirin Allergy Severe OCCASIONAL Verified 04/08/22 14:18 RASH / TONGUE SWELLING, Hives, throat swellig bee pollen [BEE STINGS] Allergy Severe ANAPHYLAXIS Verified 04/08/22 14:18 Penicillins Allergy Severe ANAPHYLAXIS Verified 04/08/22 14:18 povidone-iodine [Betadine] Allergy Severe Redness of Verified 04/08/22 14:18 Skin soap [Betadine] Allergy Severe Redness of Verified 04/08/22 14:18 Skin spider venom [SPIDER BITES] Allergy Severe Hives Verified 04/08/22 14:18 amoxicillin Allergy Intermediate Hives Verified 04/08/22 14:18 clindamycin Allergy Mild RASH Verified 04/08/22 14:18 latex [Latex] Allergy Mild RASH Verified 04/08/22 14:18 shrimp Allergy Hives Verified 06/21/22 11:48 bupropion [From WELLBUTRIN] AdvReac Severe SEIZURES Verified 04/08/22 14:18 adhesive tape AdvReac Mild Rash Verified 04/14/22 15:55 Assessment & Plan Assessment & Plan (1) Atrial fibrillation with rapid ventricular response: Status: Acute Code(s): I48.91 - Unspecified atrial fibrillation Plan On checking pulse rate using his radial pulse, his rate is about 110/Min. On the recorded vital signs, some of the pulse rates are well within normal range but some of them are quite high up to 145/Min. With regard to the home regimen, listed to be on diltiazem ER 120 mg daily, metoprolol ER 70 mg daily and digoxin alternate days. Current meds however are diltiazem CD 1 20 mg daily with metoprolol at b.i.d. dosing. However, do not see digoxin. Echocardiogram from last year with LVEF of 55-60%. Normal right ventricular size and function. Mildly elevated right atrial pressure. IVC dilated. Other labs reviewed. Hemoglobin 9.7. White cell 6.2. Platelets 280. Potassium 3.5. Creatinine is 0.92. BUN is 18. High sensitivity troponins are well within normal range. Overall, atrial fibrillation with rapid rate could be from holding off on digoxin. Recommend starting it again. There is also discrepancy between what the patient is a send was reconciled. He states he is taking every day. Hence resume digoxin daily after loading dose and monitor EKGs periodically. Will follow as needed. Discussed with psychiatry as well as hospitalist service. Plan 1. Continue with Cymbalta 60 mg p.o. b.i.d. to target depression. At this moment the patient is not suicidal. 2. Continue with medical workout and treatment of osteomyelitis with IV and vancomycin. We will follow the recommendations of Medicine. 3. Waiting for placement 4. Speech and swallow consult done, no new recommendations. Reason for continued inpatient stay Substantial Risk for: inability to function, rapid decompensation and med/psych decompensation Time Spent With Patient Time: Total time managing care of this patient today _20___ minutes.
[2022-11-08 19:40] VITALS: BP 116/76; PULSE 107; RESP 16; TEMP 36.2; O2SAT 96
[2022-11-08] MEDS: traZODone HCL 50 MG TABLET PO (20:07)
[2022-11-08] MEDS: Phenytoin Sodium Extended 100 MG CAPSULE 400 MG PO (20:09)
[2022-11-08] MEDS: QUEtiapine Fumarate 200 MG TABLET PO (20:09)
[2022-11-08] MEDS: Loperamide HCl 2 MG CAPSULE PO (20:32)
[2022-11-08 20:50] LABS: Glucose, Whole Blood 217 mg/dL (60-115)
[2022-11-09] MEDS: vancomycin HCL 750 MG in 0.9 % Sodium Chloride 250 ML 250 MG IV ×2 (01:43→13:17)
[2022-11-09] MEDS: Loperamide HCl 2 MG CAPSULE PO ×2 (04:59→09:03)
[2022-11-09] MEDS: Omeprazole 20 MG CAPSULE.DR PO (04:59)
[2022-11-09 07:57] VITALS: BP 137/72; PULSE 94; RESP 18; TEMP 36.9; O2SAT 95
[2022-11-09 08:03] LABS: Glucose, Whole Blood 179 mg/dL (60-115)
[2022-11-09] MEDS: ARIPiprazole 5 MG TABLET 7.5 MG PO (08:34)
[2022-11-09] MEDS: Phenytoin Sodium Extended 100 MG CAPSULE 200 MG PO (08:35)
[2022-11-09] MEDS: DULoxetine HCl 60 MG CAPSULE.DR PO ×2 (08:35→21:09)
[2022-11-09] MEDS: Metoprolol Succinate ER 25 MG TAB.ER.24H 75 MG PO ×2 (08:36→21:09)
[2022-11-09] MEDS: Atorvastatin Calcium 80 MG TABLET PO (08:36)
[2022-11-09] MEDS: Apixaban 5 MG TABLET PO ×2 (08:36→21:09)
[2022-11-09] MEDS: Gabapentin 400 MG CAPSULE PO ×4 (08:36→21:09)
[2022-11-09] MEDS: LORazepam 1 MG TABLET 2 MG PO (08:36)
[2022-11-09] MEDS: metFORMIN HCl 1,000 MG TABLET 1000 MG PO (08:37)
[2022-11-09] MEDS: Ondansetron ODT 4 MG TAB.RAPDIS TRANSLINGU (08:37)
[2022-11-09] MEDS: Simethicone 80 MG TAB.CHEW PO (08:38)
[2022-11-09] MEDS: 0.9 % Sodium Chloride Flush 10 ML SYRINGE 5 ML IVFLUSH ×3 (08:38→21:08)
[2022-11-09] MEDS: Torsemide 20 MG TABLET 40 MG PO (08:38)
[2022-11-09 08:39] LABS: Creatinine Clr Calc Pharmacy 145.3; Estimated Glomerular Filt Rate > 60
[2022-11-09 11:10] VITALS: BP 133/69; PULSE 99; O2SAT 95
[2022-11-09 11:21] LABS: Glucose, Whole Blood 195 mg/dL (60-115)
[2022-11-09 11:36] LABS: Vancomycin Random 15.6 mcg/mL (15-20)
[2022-11-09] MEDS: Insulin Lispro 100 UNIT/ML 3 ML VIAL SUBCUT ×3 (11:59→21:08)
[2022-11-09] MEDS: dilTIAZem HCL CD 120 MG CAP.ER.DEG PO (12:00)
--- NOTE | 2022-11-09 12:15 | HE.PHANOTE ---
Re: vanco SCr is stable at 0.83 and level is 15.6. This is higher than the anticipated level of 13.3. Expect levels of 13.4 with continued 750 q12 dosing so will maintain current dosing as he appears stable at this time.
--- NOTE | 2022-11-09 15:39 | PC.NURSE ---
Wesadie noted to open area on RLE. Area dressed with ABD pad and netting. Nataly Ramos NP notified of open area and need for dressing orders. JORDAN Abel notified and wound consult ordered. Wound consult called in by this staff writer. Low Dilantin level (7.5) from 11/06 reported to Nataly Ramos NP.
[2022-11-09 16:50] LABS: Glucose, Whole Blood 167 mg/dL (60-115)
--- NOTE | 2022-11-09 17:16 | P.CNNE_ITS ---
History of Present Illness Data of Consult Service Date: 11/09/22 Primary Care Provider: Brown Parada MD HPI Reason for consult: Depression, Review AED This is a 62-year-old male with diabetes, history of atrial fibrillation which probably has caused couple of embolic cerebral infarctions seen on his scans including 1 in left cerebellum and another in posterior parietal region on the left side, seizure disorder, peripheral neuropathy, was initially admitted in June at [facility] for COVID, and later on while he was at home he fell and he was rushed to the emergency room [facility].? According to him he stayed in his apartment asking for help for hours.? While he was on the emergency room, he was hypotensive and he needed to be admitted into the medical surgical unit of [facility].? He stated in the medical unit for several weeks, he had several medical comorbidities such as morbid obesity, diabetes, status post HI, CAD, sleep apnea, chronic pain and depression.? While they were preparing for discharge planning the patient reported exacerbation of depression with suicidal ideation.? He was assessed by the psychiatric team and crisis . He has a long history of depression in the past, he tried Wellbutrin that cause him seizures.? He stated that currently he does not have any psychiatric providers.? He complained of depressed mood, anhedonia, lack of energy, feelings of hopelessness and worthlessness and recently suicidal ideation.? He denies hallucinations or delusions, no prior history of psychosis.?No break thru seizures. Review of Systems Review of Systems: Right knee pain and discomfort Yes all other systems are reviewed and are negative Constitutional: Constitutional: Reports as per HPI and Reports no additional constitutional complaints Eyes: Eyes: Reports as per HPI and Denies no additional eye complaints ENT: Denies system reviewed and no additional complaints, except as documented and Reports as per HPI Cardiovascular: Cardiovascular: Reports as per HPI, Reports no additional cardiovascular complaints, Denies acrocyanosis, Denies cool extremities, Denies chest pain, Denies leg edema, Denies lightheadedness, Denies palpitations and Denies dyspnea Respiratory: Respiratory: Reports as per HPI, Denies no additional respiratory complaints and Denies dyspnea Gastrointestinal: Gastrointestinal: Reports as per HPI and Denies no additional gastrointestinal complaints Genitourinary: Genitourinary: Reports no additional male genitourinary complaints and Reports as per HPI Musculoskeletal: Musculoskeletal: Reports no additional musculoskeletal complaints and Reports as per HPI Integumentary/Breasts: Skin/Breast: Reports system reviewed and no additional complaints, except as docu Neurologic: Reports system reviewed and no additional complaints, except as documented and Reports as per HPI Psychiatric: Psychiatric: Reports no additional psychiatric complaints and Reports as per HPI Endocrine: Endocrine: Reports no additional endocrine complaints, Reports as per HPI and Denies palpitations Hematologic/Lymphatic: Hematologic/Lymphatic: Reports no additional hematologic/lymphatic complaints and Reports as per HPI Allergic/Immunologic: Allergic/Immunologic: Reports no additional allergic/immunologic complaints and Reports as per HPI [facility] Past Medical History Medical History (Updated 11/09/22 @ 17:23 by Megha Purdy MD) Anxiety Arthritis Asthma Atrial fibrillation Atrial fibrillation with rapid ventricular response Bladder outlet obstruction Chronic back pain Coronary artery disease Diabetes mellitus, type 2 Fall Hypertension Multifactorial gait disorder Obesity Osteomyelitis of foot PTSD (post-traumatic stress disorder) TIA (transient ischemic attack) Transient ischemic attack (TIA) Weakness Family History Pertinent family history: Patient denies any significant cardiac history in his near family. Family history: reviewed and not pertinent Social History Social History Household Members: None Housing: Apartment Do you presently have visiting nurse or other home services: Yes Alcohol intake: never Patient Tobacco Use Status: Never used Tobacco Smoked in Last 30 Days: No e-Cigarette/Vaping Use: Never Used Patient Interested in Nicotine Replacement: No Patient Given Instructions on How to Stop Smoking: No Second Hand Smoke Exposure: No Use of substances other than those prescribed or required for medical reasons: No Currently Displaying Signs/Symptoms of Drug Intoxication Withdrawal: No Any prior treatment program specific to substance use: No Have you been hit, kicked, punched, or otherwise hurt by someone within the past year? 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 wrapper operator Advance Directives: Yes Advance Directives on File: Yes Advance Directives Date on File: 07/27/22 Do you have thoughts of harming others: None Do you have a plan to hurt others: No Plan service: No Current occupational status: disabled Sexual orientation: Straight/Heterosexual Meds Allergies Allergy/AdvReac Type Severity Reaction Status Date / Time aspirin Allergy Severe Ocassional Verified 11/09/22 08:53 rash, Hives, throat and tongue swelling bee pollen [BEE STINGS] Allergy Severe Anaphylaxis Verified 11/09/22 08:53 Penicillins Allergy Severe Anaphylaxis Verified 11/09/22 08:53 povidone-iodine [Betadine] Allergy Severe Redness of Verified 04/08/22 14:18 Skin soap [Betadine] Allergy Severe Redness of Verified 04/08/22 14:18 Skin spider venom [SPIDER BITES] Allergy Severe Hives Verified 04/08/22 14:18 amoxicillin Allergy Intermediate Hives Verified 04/08/22 14:18 adhesive tape Allergy Mild Rash Verified 11/09/22 08:53 clindamycin Allergy Mild Rash Verified 11/09/22 08:53 latex [Latex] Allergy Mild Rash Verified 11/09/22 08:53 shrimp Allergy Hives Verified 06/21/22 11:48 bupropion [From WELLBUTRIN] AdvReac Severe Seizure Verified 11/09/22 08:53 Active Medications: Current Medications Acetaminophen (Acetaminophen 325 Mg Tablet) 650 mg PO Q6H PRN PRN Reason: Headache/Pain Mild Scale (1-3) Last Admin: 11/08/22 10:31 Dose: 650 mg Al Hydroxide/Mg Hydroxide (Magnesium Hydrox/Alum Hydrox 30 Ml Oral.Susp) 30 ml PO Q6H PRN PRN Reason: Heartburn/Nausea Last Admin: 11/02/22 04:39 Dose: 30 ml Albuterol Sulfate (Albuterol Sulfate 90 Mcg 8 Gm Inhaler) 2 puff INHALE Q4H PRN PRN Reason: Shortness Of Breath Last Admin: 11/02/22 09:40 Dose: 2 puff Apixaban (Apixaban 5 Mg Tablet) 5 mg PO BID COUNTS INCLUDE 234 BEDS AT THE [facility] Last Admin: 11/09/22 08:36 Dose: 5 mg Aripiprazole (Aripiprazole 10 Mg Tablet) 10 mg PO DAILY COUNTS INCLUDE 234 BEDS AT THE [facility] Atorvastatin Calcium (Atorvastatin Calcium 80 Mg Tablet) 80 mg PO DAILY COUNTS INCLUDE 234 BEDS AT THE [facility] Last Admin: 11/09/22 08:36 Dose: 80 mg Diltiazem HCl (Diltiazem Hcl Cd 120 Mg Cap.Er.Deg) 120 mg PO DAILY@11 COUNTS INCLUDE 234 BEDS AT THE [facility]; Protocol Last Admin: 11/09/22 12:00 Dose: 120 mg Doxycycline Monohydrate (Doxycycline Monohydrate 100 Mg Capsule) 100 mg PO Q12H COUNTS INCLUDE 234 BEDS AT THE [facility] Stop: 12/23/22 09:01 Duloxetine HCl (Duloxetine Hcl 60 Mg Capsule.) 60 mg PO BID COUNTS INCLUDE 234 BEDS AT THE [facility] Last Admin: 11/09/22 08:35 Dose: 60 mg Ferrous Sulfate (Ferrous Sulfate 324 Mg Tablet.) 324 mg PO MoWeFr@0900 COUNTS INCLUDE 234 BEDS AT THE [facility] Last Admin: 11/08/22 08:32 Dose: Not Given Gabapentin (Gabapentin 400 Mg Capsule) 400 mg PO QID COUNTS INCLUDE 234 BEDS AT THE [facility] Last Admin: 11/09/22 16:56 Dose: 400 mg Glucose (Glucose Gel 15 Gm Gel..Gram.) 15 gm PO Q15M PRN; Protocol PRN Reason: per Hypoglycemia Standing Ord. Hydroxyzine HCl (Hydroxyzine Hcl 25 Mg Tablet) 25 mg PO TID PRN PRN Reason: Anxiety Last Admin: 11/02/22 04:01 Dose: 25 mg Dextrose (D10) 250 mls @ 750 mls/hr IV Q15M PRN; Protocol PRN Reason: per Hypoglycemia Standing Ord. Vancomycin HCl 750 mg/ Sodium (Chloride) 265 mls @ 265 mls/hr IV Q12H COUNTS INCLUDE 234 BEDS AT THE [facility] Stop: 11/24/22 13:59 Last Infusion: 11/09/22 14:23 Dose: Infused Ibuprofen (Ibuprofen 600 Mg Tablet) 600 mg PO Q6H PRN PRN Reason: Pain, Moderate(Pain Scale 4-6) Last Admin: 11/05/22 23:51 Dose: 600 mg Insulin Human Lispro (Insulin Lispro 100 Unit/Ml 3 Ml Vial) 0 unit SUBCUT QIDACHS COUNTS INCLUDE 234 BEDS AT THE [facility]; Protocol Last Admin: 11/09/22 16:55 Dose: 2 unit Lidocaine (Lidocaine 4 % Patch Adh..Patch) 1 patch TRANSDERMA DAILY COUNTS INCLUDE 234 BEDS AT THE [facility] Last Admin: 11/09/22 08:40 Dose: Not Given Loperamide HCl (Loperamide Hcl 2 Mg Capsule) 2 mg PO Q4H PRN PRN Reason: Diarrhea Last Admin: 11/09/22 09:03 Dose: 2 mg Lorazepam (Lorazepam 1 Mg Tablet) 1 mg PO TID PRN PRN Reason: Anxiety Magnesium Hydroxide (Milk Of Magnesia 30 Ml Oral.Susp) 30 ml PO DAILY PRN PRN Reason: Constipation Last Admin: 10/08/22 15:52 Dose: 30 ml Melatonin (Melatonin 3 Mg Tablet) 3 mg PO BEDTIME PRN PRN Reason: Insomnia Last Admin: 11/02/22 21:37 Dose: 3 mg Metformin HCl (Metformin Hcl 1,000 Mg Tablet) 1,000 mg PO DAILY COUNTS INCLUDE 234 BEDS AT THE [facility] Last Admin: 11/09/22 08:37 Dose: 1,000 mg Metoprolol Succinate (Metoprolol Succinate Er 25 Mg Tab.Er.24h) 75 mg PO BID COUNTS INCLUDE 234 BEDS AT THE [facility]; Protocol Last Admin: 11/09/22 08:36 Dose: 75 mg Naproxen (Naproxen 500 Mg Tablet) 500 mg PO BID PRN PRN Reason: Knee pain Last Admin: 10/24/22 22:27 Dose: 500 mg Nitroglycerin (Nitroglycerin 0.4 Mg Tab.Subl) 0.4 mg SUBLINGUAL Q5M PRN PRN Reason: Chest Pain Nystatin (Nystatin Powder 15 Gm Bottle) 1 appl TOPICAL BID COUNTS INCLUDE 234 BEDS AT THE [facility]; Protocol Last Admin: 11/09/22 08:51 Dose: Not Given Omeprazole (Omeprazole 20 Mg Capsule.Dr) 20 mg PO DAILY@0630 COUNTS INCLUDE 234 BEDS AT THE [facility] Last Admin: 11/09/22 04:59 Dose: 20 mg Ondansetron HCl (Ondansetron Odt 4 Mg Tab.Rapdis) 4 mg TRANSLINGU Q8H PRN PRN Reason: Nausea Last Admin: 11/09/22 08:37 Dose: 4 mg Phenytoin Sodium (Phenytoin Sodium Extended 100 Mg Capsule) 200 mg PO DAILY COUNTS INCLUDE 234 BEDS AT THE [facility] Last Admin: 11/09/22 08:35 Dose: 200 mg Phenytoin Sodium (Phenytoin Sodium Extended 100 Mg Capsule) 400 mg PO BEDTIME COUNTS INCLUDE 234 BEDS AT THE [facility] Last Admin: 11/08/22 20:09 Dose: 400 mg Quetiapine Fumarate (Quetiapine Fumarate 100 Mg Tablet) 100 mg PO BEDTIME PRN PRN Reason: Insomnia Last Admin: 11/07/22 21:35 Dose: 100 mg Quetiapine Fumarate (Quetiapine Fumarate 200 Mg Tablet) 200 mg PO BEDTIME COUNTS INCLUDE 234 BEDS AT THE [facility] Last Admin: 11/08/22 20:09 Dose: 200 mg Senna (Sennosides 8.6 Mg Tablet) 8.6 mg PO DAILY COUNTS INCLUDE 234 BEDS AT THE [facility] Last Admin: 11/09/22 08:41 Dose: Not Given Simethicone (Simethicone 80 Mg Tab.Chew) 80 mg PO TID PRN PRN Reason: Indigestion Last Admin: 11/09/22 08:38 Dose: 80 mg Sodium Chloride (0.9 % Sodium Chloride Flush 10 Ml Syringe) 5 ml IVFLUSH TID YOHAN Last Admin: 11/09/22 14:20 Dose: 5 ml Torsemide (Torsemide 20 Mg Tablet) 40 mg PO DAILY COUNTS INCLUDE 234 BEDS AT THE [facility]; Protocol Last Admin: 11/09/22 08:38 Dose: 40 mg Trazodone HCl (Trazodone Hcl 50 Mg Tablet) 50 mg PO BEDTIME YOHAN Last Admin: 11/08/22 20:07 Dose: 50 mg Trazodone HCl (Trazodone Hcl 50 Mg Tablet) 50 mg PO BEDTIME PRN PRN Reason: Insomnia Home Medications Medication Instructions Recorded Confirmed Last Taken Type apixaban 5 mg tablet (Eliquis) 1 tab PO BID 07/08/22 10/04/22 Unknown History hydroxyzine HCl 25 mg tablet 1 tab PO TID PRN Anxiety 07/08/22 10/04/22 Unknown History lorazepam 2 mg tablet 1 tab PO TID PRN Anxiety 07/08/22 10/04/22 Unknown History metformin 1,000 mg tablet 1 tab PO DAILY 07/08/22 10/04/22 Unknown History oxycodone 5 mg tablet 1 tab PO TID PRN Pain 07/08/22 10/04/22 Unknown History pantoprazole 40 mg tablet,delayed 1 tab PO DAILY@0630 07/08/22 10/04/22 Unknown History release phenytoin sodium extended 100 mg 200 mg PO DAILY 07/08/22 10/04/22 Unknown H istory capsule trazodone 50 mg tablet 1 tab PO BEDTIME 07/08/22 10/04/22 Unknown History acetaminophen 500 mg tablet 1,000 mg PO BID PRN Pain 07/09/22 10/04/22 Unknown History albuterol sulfate 90 mcg/actuation 2 puff inhalation Q4-6H PRN 07/09/22 10/04/22 Unknown History aerosol inhaler (ProAir HFA) Shortness Of Breath atorvastatin 80 mg tablet 1 tab PO DAILY 07/09/22 10/04/22 Unknown History duloxetine 30 mg capsule,delayed 60 mg PO BID 07/09/22 10/04/22 Unknown History release fluticasone propionate 50 1 spray intranasal BID 07/09/22 10/04/22 Unknown History mcg/actuation nasal spray,suspension gabapentin 400 mg capsule 1 cap PO 5XD 07/09/22 10/04/22 Unknown History insulin lispro 100 unit/mL 2 - 10 unit subcut TIDAC 07/09/22 10/04/22 Unknown History subcutaneous pen phenytoin sodium extended 100 mg 400 mg PO BEDTIME 07/09/22 10/04/22 Unknown History capsule quetiapine 100 mg tablet 1 tab PO BEDTIME PRN Insomnia 07/09/22 10/04/22 Unknown History quetiapine 200 mg tablet 1 tab PO BID 07/09/22 10/04/22 Unknown History torsemide 20 mg tablet 1 tab PO DAILY 07/09/22 10/04/22 Unknown History ferrous sulfate 324 mg (65 mg 324 mg PO DIRECTED 07/30/22 10/04/22 Unknown History iron) tablet,delayed release aripiprazole 5 mg tablet 7.5 mg PO DAILY 10/04/22 10/04/22 Unknown History calamine See Rx Instructions .Route .COMPLEX 10/04/22 10/04/22 Unknown History diltiazem HCl 120 mg capsule,24 120 mg PO DAILY@11 10/04/22 10/04/22 Unknown History hr,extended release lidocaine 5 % topical patch 1 patch topical DAILY 10/04/22 10/04/22 Unknown History melatonin 3 mg tablet 3 mg PO BEDTIME PRN Insomnia 10/04/22 10/04/22 Unknown History metoprolol succinate 25 mg 75 mg PO DAILY 10/04/22 10/04/22 Unknown History tablet,extended release 24 hr nitroglycerin 0.4 mg sublingual 0.4 mg sublingual Q5M PRN Chest 10/04/22 10/04/22 Unknown History tablet Pain nystatin 100,000 unit/gram topical 1 appl topical BID 10/04/22 10/04/22 Unknown History powder ondansetron 4 mg disintegrating 4 mg PO Q6H PRN Nausea 10/04/22 10/04/22 Unknown History tablet sennosides 8.6 mg tablet (senna) 8.6 mg PO DAILY 10/04/22 10/04/22 Unknown History simethicone 80 mg tablet 80 mg PO TID PRN Indigestion 10/04/22 10/04/22 Unknown History Physical Exam Vital Signs: Vital Signs: Last Vital Signs Temp 98.5 F 06/06/23 07:57 Pulse 99 11/09/22 11:10 Resp 18 11/09/22 07:57 BP 133/69 11/09/22 11:10 Pulse Ox 95 11/09/22 11:10 O2 Del Method Room Air 11/09/22 07:57 O2 Flow Rate 93 10/12/22 00:30 FiO2 91 10/13/22 06:17 BMI result Body Mass Index 43.8 Const: General: cooperative, comfortable and no acute distress Orientation/consciousness: patient oriented x3 HEENT: Other: Unremarkable Head: Yes normal to inspection Face and sinus: Yes normal facial exam Mouth: Normal oral and palatal mucosa present Teeth and gingiva: dentition normal Eyes: General: appearance normal, both eyes and all related structures Pupils: Equal, round and reactive pupils present Neck: Neck: Yes normal visual inspection Chest: Chest palpation & inspection: normal inspection of the chest Resp: Effort & Inspection: normal respiratory effort Auscultation: clear to auscultation bilaterally Cardio: Palpation: normal PMI Rate: regular rate Rhythm: regular rhythm Heart sounds: S1 normal heart sound present, S2 normal heart sound present, no gallops, no murmurs and no rubs GI: Palpation (GI): Soft to palpation and nontender : General: Yes no CVA tenderness Back/Spine/Pelvis: Other: unremarkable Back: no CVA tenderness Skin: General skin exam: no rashes or lesions noted Neuro: Other: Morbid obesityNonfocal examination. Reflexes hypoactive. Flat affect General: patient oriented x3 and moves all extremities Cranial nerves: Yes Equal, round and reactive pupils present Extrem: Other: left and right great toe abrasion/swelling neuropathy feet pulses plus two General: Yes normal to inspection Psych: Appearance: grossly normal Mental Status: mental status grossly normal Results Labs 11/06/22 06:35 11/09/22 08:05 Labs: BMP 11/09/22 08:05 Creatinine 0.83 Microbiology Microbiology Results: Microbiology 11/01/22 10:30 Urine clean catch - Urine drew top Urine Culture - Final No growth. 10/11/22 20:08 Blood - Venous Blood Culture - Final No growth after 5 days. 10/11/22 20:08 Blood - Venous Blood Culture - Final No growth after 5 days. Assessment and Plan (1) Seizure disorder: Status: Acute He has had no breakthrough seizures on Dilantin for many years. He has been maintained on Dilantin for many, many years and I don't believe his depression is related to this. However, if the psychiatrists are of the opinion that this is a stroong contributor to his depression then he can be tapered off the Dilantin over a six-week period in the meantime, he should be started on Depakote 1 g twice a day and check Depakote levels in a week and taper of Dilantin was therapeutic levels are achieved. (2) Atrial fibrillation with rapid ventricular response: Status: Acute (3) Major depressive disorder: Status: Acute Plan On checking pulse rate using his radial pulse, his rate is about 110/Min. On the recorded vital signs, some of the pulse rates are well within normal range but some of them are quite high up to 145/Min. With regard to the home regimen, listed to be on diltiazem ER 120 mg daily, metoprolol ER 70 mg daily and digoxin alternate days. Current meds however are diltiazem CD 1 20 mg daily with metoprolol at b.i.d. dosing. However, do not see digoxin. Echocardiogram from last year with LVEF of 55-60%. Normal right ventricular size and function. Mildly elevated right atrial pressure. IVC dilated. Other labs reviewed. Hemoglobin 9.7. White cell 6.2. Platelets 280. Potassium 3.5. Creatinine is 0.92. BUN is 18. High sensitivity troponins are well within normal range. Overall, atrial fibrillation with rapid rate could be from holding off on digoxin. Recommend starting it again. There is also discrepancy between what the patient is a send was reconciled. He states he is taking every day. Hence resume digoxin daily after loading dose and monitor EKGs periodically. Will follow as needed. Discussed with psychiatry as well as hospitalist service. Plan 1. Continue with Cymbalta 60 mg p.o. b.i.d. to target depression. At this moment the patient is not suicidal. 2. Continue with medical workout and treatment of osteomyelitis with IV and vanc omycin. We will follow the recommendations of Medicine. 3. Waiting for placement 4. Speech and swallow consult done, no new recommendations. Time Spent With Patient Time: Total time managing care of this patient today ____ minutes. Procedures Date of Service Date of Service: 11/09/22
--- NOTE | 2022-11-09 17:19 | P.PNPSI_ITS ---
Subjective Subjective Date of Service: 11/09/22 Reason For Visit: Major depressive disorder Subjective Notes: Conditional Voluntary Interim History: The nursing staff reported no changes in his mental status, pleasant cooperative. Compliant with treatment. Pt reports feeling down at times. He reports having some nightmares at times. He reports feeling irritable at life. He denied SI/HI but reports SI, at least passive come and go. We discussed phenytoin level have been low- 7.5. In the past he had low albumin, therefore thought was unbound phenytoin was higher than total level. His albumin now is wnl. We also discussed increase of depression with this medication, which seemed to have been started for wellbutrin or benzo induced seizure. Pt sees Dr. Simon here at [facility] [place]. Medication Compliance: Yes Side effects from medications: No Review of Systems Review of Systems Right knee pain and discomfort Yes all other systems are reviewed and are negative Constitutional: Reports as per HPI and Reports no additional constitutional complaints Eyes: Reports as per HPI and Denies no additional eye complaints Denies system reviewed and no additional complaints, except as documented and Reports as per HPI Cardiovascular: Reports as per HPI, Reports no additional cardiovascular complaints, Denies acrocyanosis, Denies cool extremities, Denies chest pain, Denies leg edema, Denies lightheadedness, Denies palpitations and Denies dyspnea Respiratory: Reports as per HPI, Denies no additional respiratory complaints and Denies dyspnea Gastrointestinal: Reports as per HPI and Denies no additional gastrointestinal complaints Genitourinary: Reports no additional male genitourinary complaints and Reports as per HPI Musculoskeletal: Reports no additional musculoskeletal complaints and Reports as per HPI Skin/Breast: Reports system reviewed and no additional complaints, except as docu Reports system reviewed and no additional complaints, except as documented and Reports as per HPI Psychiatric: Reports no additional psychiatric complaints and Reports as per HPI Endocrine: Reports no additional endocrine complaints, Reports as per HPI and Denies palpitations Hematologic/Lymphatic: Reports no additional hematologic/lymphatic complaints and Reports as per HPI Allergic/Immunologic: Reports no additional allergic/immunologic complaints and Reports as per HPI Mental Status Exam Mental Status Exam Patient Appearance: Well Grooomed and Appropriate Patient Orientation: Person and Situation Level of Consciousness: Awake and Appropriate Patient Behavior: Guarded and Passive Mood Description: Withdrawn Affect Description: Constricted Patient Cognition Impaired: Yes Ability to Follow Directions: Good Speech Pattern: Clear Diagnostics Vital Signs (24Hr): Vital Signs - 24 hr 11/08/22 19:40 11/09/22 07:57 11/09/22 11:10 Temperature 97.2 F 98.5 F Pulse Rate 107 H 94 99 Respiratory Rate 16 18 Blood Pressure 116/76 137/72 133/69 Pulse Oximetry 96 95 95 Oxygen Delivery Method Room Air Room Air BMI result Body Mass Index 43.8 Labs 11/06/22 06:35 11/09/22 08:05 Labs: Laboratory Results - last 48 hr 11/07/22 11/08/22 11/08/22 19:57 07:55 08:45 Creatinine 0.92 Estim Creat Clear Calc 131.1 Estimated GFR > 60 POC Glucose 195 H 165 H Random Vancomycin 11/08/22 11/08/22 11/08/22 11:46 12:16 16:19 Creatinine Estim Creat Clear Calc Estimated GFR POC Glucose 185 H 195 H Random Vancomycin 14.3 L 11/08/22 11/09/22 11/09/22 20:46 07:55 08:05 Creatinine 0.83 Estim Creat Clear Calc 145.3 Estimated GFR > 60 POC Glucose 217 H 179 H Random Vancomycin 11/09/22 11/09/22 11/09/22 11:15 11:16 16:41 Creatinine Estim Creat Clear Calc Estimated GFR POC Glucose 195 H 167 H Random Vancomycin 15.6 Imaging Radiology Impressions: ITS Impressions Hand/Wrist X-Ray 10/07/22 22:07 IMPRESSION: Old healed fracture of the distal shaft of the fifth metacarpal bone and question old or healing fracture of the neck of the fourth metacarpal bone. No acute fracture. Foot X-Ray 10/11/22 12:56 IMPRESSION: RIGHT FOOT: Soft tissue ulceration at the distal aspect of the right great toe. Erosion/lucency through the distal tuft of the 1st distal phalanx, likely indicating osteomyelitis. LEFT FOOT: 1. Soft tissue ulceration along the distal/medial aspect of the great toe with circumferential soft tissue swelling. No radiopaque foreign body. No adjacent cortical erosion or periosteal reaction to suggest acute osteomyelitis, however, this may be occult on plain radiographs. 2. Severe osteoarthritis with prominent bony remodeling throughout the tibiotalar and midfoot joints, similar when compared to the prior radiographs from 2016. Foot X-Ray 10/11/22 12:56 IMPRESSION: RIGHT FOOT: Soft tissue ulceration at the distal aspect of the right great toe. Erosion/lucency through the distal tuft of the 1st distal phalanx, likely indicating osteomyelitis. LEFT FOOT: 1. Soft tissue ulceration along the distal/medial aspect of the great toe with circumferential soft tissue swelling. No radiopaque foreign body. No adjacent cortical erosion or periosteal reaction to suggest acute osteomyelitis, however, this may be occult on plain radiographs. 2. Severe osteoarthritis with prominent bony remodeling throughout the tibiotalar and midfoot joints, similar when compared to the prior radiographs from 2016. Duplex Scan Lower Extremity Artery 10/13/22 19:25 IMPRESSION: 1. No hemodynamically significant stenosis in the right lower extremity. 2. Incidental note is made of cardiac arrhythmia. Chest X-Ray 10/15/22 13:39 IMPRESSION: Right upper extremity PICC line tip projects over SVC. Medications Medications Current Medications Acetaminophen (Acetaminophen 325 Mg Tablet) 650 mg PO Q6H PRN PRN Reason: Headache/Pain Mild Scale (1-3) Last Admin: 11/08/22 10:31 Dose: 650 mg Al Hydroxide/Mg Hydroxide (Magnesium Hydrox/Alum Hydrox 30 Ml Oral.Susp) 30 ml PO Q6H PRN PRN Reason: Heartburn/Nausea Last Admin: 11/02/22 04:39 Dose: 30 ml Albuterol Sulfate (Albuterol Sulfate 90 Mcg 8 Gm Inhaler) 2 puff INHALE Q4H PRN PRN Reason: Shortness Of Breath Last Admin: 11/02/22 09:40 Dose: 2 puff Apixaban (Apixaban 5 Mg Tablet) 5 mg PO BID [facility] Last Admin: 11/09/22 08:36 Dose: 5 mg Aripiprazole (Aripiprazole 10 Mg Tablet) 10 mg PO DAILY [facility] Atorvastatin Calcium (Atorvastatin Calcium 80 Mg Tablet) 80 mg PO DAILY [facility] Last Admin: 11/09/22 08:36 Dose: 80 mg Diltiazem HCl (Diltiazem Hcl Cd 120 Mg Cap.Er.Deg) 120 mg PO DAILY@11 [facility]; Protocol Last Admin: 11/09/22 12:00 Dose: 120 mg Doxycycline Monohydrate (Doxycycline Monohydrate 100 Mg Capsule) 100 mg PO Q12H [facility] Stop: 12/23/22 09:01 Duloxetine HCl (Duloxetine Hcl 60 Mg Capsule.) 60 mg PO BID [facility] Last Admin: 11/09/22 08:35 Dose: 60 mg Ferrous Sulfate (Ferrous Sulfate 324 Mg Tablet.Dr) 324 mg PO MoWeFr@0900 [facility] Last Admin: 11/08/22 08:32 Dose: Not Given Gabapentin (Gabapentin 400 Mg Capsule) 400 mg PO QID [facility] Last Admin: 11/09/22 16:56 Dose: 400 mg Glucose (Glucose Gel 15 Gm Gel..Gram.) 15 gm PO Q15M PRN; Protocol PRN Reason: per Hypoglycemia Standing Ord. Hydroxyzine HCl (Hydroxyzine Hcl 25 Mg Tablet) 25 mg PO TID PRN PRN Reason: Anxiety Last Admin: 11/02/22 04:01 Dose: 25 mg Dextrose (D10) 250 mls @ 750 mls/hr IV Q15M PRN; Protocol PRN Reason: per Hypoglycemia Standing Ord. Vancomycin HCl 750 mg/ Sodium (Chloride) 265 mls @ 265 mls/hr IV Q12H [facility] Stop: 11/24/22 13:59 Last Infusion: 11/09/22 14:23 Dose: Infused Ibuprofen (Ibuprofen 600 Mg Tablet) 600 mg PO Q6H PRN PRN Reason: Pain, Moderate(Pain Scale 4-6) Last Admin: 11/05/22 23:51 Dose: 600 mg Insulin Human Lispro (Insulin Lispro 100 Unit/Ml 3 Ml Vial) 0 unit SUBCUT QIDACHS [facility]; Protocol Last Admin: 11/09/22 16:55 Dose: 2 unit Lidocaine (Lidocaine 4 % Patch Adh..Patch) 1 patch TRANSDERMA DAILY [facility] Last Admin: 11/09/22 08:40 Dose: Not Given Loperamide HCl (Loperamide Hcl 2 Mg Capsule) 2 mg PO Q4H PRN PRN Reason: Diarrhea Last Admin: 11/09/22 09:03 Dose: 2 mg Lorazepam (Lorazepam 1 Mg Tablet) 1 mg PO TID PRN PRN Reason: Anxiety Magnesium Hydroxide (Milk Of Magnesia 30 Ml Oral.Susp) 30 ml PO DAILY PRN PRN Reason: Constipation Last Admin: 10/08/22 15:52 Dose: 30 ml Melatonin (Melatonin 3 Mg Tablet) 3 mg PO BEDTIME PRN PRN Reason: Insomnia Last Admin: 11/02/22 21:37 Dose: 3 mg Metformin HCl (Metformin Hcl 1,000 Mg Tablet) 1,000 mg PO DAILY [facility] Last Admin: 11/09/22 08:37 Dose: 1,000 mg Metoprolol Succinate (Metoprolol Succinate Er 25 Mg Tab.Er.24h) 75 mg PO BID [facility]; Protocol Last Admin: 11/09/22 08:36 Dose: 75 mg Naproxen (Naproxen 500 Mg Tablet) 500 mg PO BID PRN PRN Reason: Knee pain Last Admin: 10/24/22 22:27 Dose: 500 mg Nitroglycerin (Nitroglycerin 0.4 Mg Tab.Subl) 0.4 mg SUBLINGUAL Q5M PRN PRN Reason: Chest Pain Nystatin (Nystatin Powder 15 Gm Bottle) 1 appl TOPICAL BID [facility]; Protocol Last Admin: 11/09/22 08:51 Dose: Not Given Omeprazole (Omeprazole 20 Mg Capsule.Dr) 20 mg PO DAILY@629 [facility] Last Admin: 11/09/22 04:59 Dose: 20 mg Ondansetron HCl (Ondansetron Odt 4 Mg Tab.Rapdis) 4 mg TRANSLINGU Q8H PRN PRN Reason: Nausea Last Admin: 11/09/22 08:37 Dose: 4 mg Phenytoin Sodium (Phenytoin Sodium Extended 100 Mg Capsule) 200 mg PO DAILY [facility] Last Admin: 11/09/22 08:35 Dose: 200 mg Phenytoin Sodium (Phenytoin Sodium Extended 100 Mg Capsule) 400 mg PO BEDTIME [facility] Last Admin: 11/08/22 20:09 Dose: 400 mg Quetiapine Fumarate (Quetiapine Fumarate 100 Mg Tablet) 100 mg PO BEDTIME PRN PRN Reason: Insomnia Last Admin: 11/07/22 21:35 Dose: 100 mg Quetiapine Fumarate (Quetiapine Fumarate 200 Mg Tablet) 200 mg PO BEDTIME [facility] Last Admin: 11/08/22 20:09 Dose: 200 mg Senna (Sennosides 8.6 Mg Tablet) 8.6 mg PO DAILY [facility] Last Admin: 11/09/22 08:41 Dose: Not Given Simethicone (Simethicone 80 Mg Tab.Chew) 80 mg PO TID PRN PRN Reason: Indigestion Last Admin: 11/09/22 08:38 Dose: 80 mg Sodium Chloride (0.9 % Sodium Chloride Flush 10 Ml Syringe) 5 ml IVFLUSH TID [facility] Last Admin: 11/09/22 14:20 Dose: 5 ml Torsemide (Torsemide 20 Mg Tablet) 40 mg PO DAILY [facility]; Protocol Last Admin: 11/09/22 08:38 Dose: 40 mg Trazodone HCl (Trazodone Hcl 50 Mg Tablet) 50 mg PO BEDTIME [facility] Last Admin: 11/08/22 20:07 Dose: 50 mg Trazodone HCl (Trazodone Hcl 50 Mg Tablet) 50 mg PO BEDTIME PRN PRN Reason: Insomnia Allergies Allergies Allergy/AdvReac Type Severity Reaction Status Date / Time aspirin Allergy Severe Ocassional Verified 11/09/22 08:53 rash, Hives, throat and tongue swelling bee pollen [BEE STINGS] Allergy Severe Anaphylaxis Verified 11/09/22 08:53 Penicillins Allergy Severe Anaphylaxis Verified 11/09/22 08:53 povidone-iodine [Betadine] Allergy Severe Redness of Verified 04/08/22 14:18 Skin soap [Betadine] Allergy Severe Redness of Verified 04/08/22 14:18 Skin spider venom [SPIDER BITES] Allergy Severe Hives Verified 04/08/22 14:18 amoxicillin Allergy Intermediate Hives Verified 04/08/22 14:18 adhesive tape Allergy Mild Rash Verified 11/09/22 08:53 clindamycin Allergy Mild Rash Verified 11/09/22 08:53 latex [Latex] Allergy Mild Rash Verified 11/09/22 08:53 shrimp Allergy Hives Verified 06/21/22 11:48 bupropion [From WELLBUTRIN] AdvReac Severe Seizure Verified 11/09/22 08:53 Assessment & Plan Assessment & Plan (1) Atrial fibrillation with rapid ventricular response: Status: Acute Code(s): I48.91 - Unspecified atrial fibrillation Plan On checking pulse rate using his radial pulse, his rate is about 110/Min. On the recorded vital signs, some of the pulse rates are well within normal range but some of them are quite high up to 145/Min. With regard to the home regimen, listed to be on diltiazem ER 120 mg daily, metoprolol ER 70 mg daily and digoxin alternate days. Current meds however are diltiazem CD 1 20 mg daily with metoprolol at b.i.d. dosing. However, do not see digoxin. Echocardiogram from last year with LVEF of 55-60%. Normal right ventricular size and function. Mildly elevated right atrial pressure. IVC dilated. Other labs reviewed. Hemoglobin 9.7. White cell 6.2. Platelets 280. Potassium 3.5. Creatinine is 0.92. BUN is 18. High sensitivity troponins are well within normal range. Overall, atrial fibrillation with rapid rate could be from holding off on digoxin. Recommend starting it again. There is also discrepancy between what the patient is a send was reconciled. He states he is taking every day. Hence resume digoxin daily after loading dose and monitor EKGs periodically. Will follow as needed. Discussed with psychiatry as well as hospitalist service. Plan 11/09 continue current medication. Did order consult for neurology to decide whether to keep phenytoin, or try different AED that may affect mood less. 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 Reason for continued inpatient stay Substantial Risk for: inability to function Time Spent With Patient Time: Total time managing care of this patient today ____ minutes.
[2022-11-09] MEDS: LORazepam 1 MG TABLET PO (17:28)
[2022-11-09 18:00] VITALS: BP 134/77; PULSE 114; RESP 18; TEMP 36.4; O2SAT 92
[2022-11-09 20:01] LABS: Glucose, Whole Blood 182 mg/dL (60-115)
[2022-11-09] MEDS: traZODone HCL 50 MG TABLET PO (21:10)
[2022-11-09] MEDS: Phenytoin Sodium Extended 100 MG CAPSULE 400 MG PO (21:10)
[2022-11-09] MEDS: QUEtiapine Fumarate 200 MG TABLET PO (21:10)
--- NOTE | 2022-11-09 21:59 | PC.NURSE ---
Patient put in 3 day notice to leave. Stated upset about dose change on his prn lorazepam. manager call provider and broiler supervisor notified.
[2022-11-09] MEDS: Albuterol Sulfate 90 MCG 8 GM INHALER 2 PUFF INHALE (22:41)
[2022-11-10] MEDS: vancomycin HCL 750 MG in 0.9 % Sodium Chloride 250 ML 250 MG IV ×2 (01:38→13:26)
[2022-11-10] MEDS: LORazepam 1 MG TABLET 2 MG PO ×3 (01:40→22:16)
[2022-11-10] MEDS: Omeprazole 20 MG CAPSULE.DR PO (05:56)
[2022-11-10 07:30] VITALS: BP 110/60; PULSE 108; RESP 15; TEMP 36.3; O2SAT 94
[2022-11-10 07:59] LABS: Glucose, Whole Blood 193 mg/dL (60-115)
[2022-11-10] MEDS: DULoxetine HCl 60 MG CAPSULE.DR PO ×2 (08:26→22:11)
[2022-11-10] MEDS: Insulin Lispro 100 UNIT/ML 3 ML VIAL SUBCUT ×3 (08:26→22:11)
[2022-11-10] MEDS: metFORMIN HCl 1,000 MG TABLET 1000 MG PO (08:26)
[2022-11-10] MEDS: Apixaban 5 MG TABLET PO ×2 (08:27→22:10)
[2022-11-10] MEDS: Gabapentin 400 MG CAPSULE PO ×4 (08:27→22:09)
[2022-11-10] MEDS: Metoprolol Succinate ER 25 MG TAB.ER.24H 75 MG PO ×2 (08:27→22:10)
[2022-11-10] MEDS: Atorvastatin Calcium 80 MG TABLET PO (08:27)
[2022-11-10] MEDS: ARIPiprazole 10 MG TABLET PO (08:27)
[2022-11-10] MEDS: Torsemide 20 MG TABLET 40 MG PO (08:27)
[2022-11-10] MEDS: Phenytoin Sodium Extended 100 MG CAPSULE 200 MG PO (08:27)
[2022-11-10 08:35] LABS: Creatinine Clr Calc Pharmacy 114.8; Estimated Glomerular Filt Rate > 60
[2022-11-10] MEDS: Albuterol Sulfate 90 MCG 8 GM INHALER 2 PUFF INHALE (08:36)
[2022-11-10] MEDS: 0.9 % Sodium Chloride Flush 10 ML SYRINGE 5 ML IVFLUSH ×4 (08:36→22:20)
[2022-11-10] MEDS: dilTIAZem HCL CD 120 MG CAP.ER.DEG PO (11:12)
[2022-11-10 11:23] LABS: Glucose, Whole Blood 193 mg/dL (60-115)
--- NOTE | 2022-11-10 12:04 | HO.PSYCHPN ---
Subjective Subjective Date of Service: 11/10/22 Reason For Visit: Major depressive disorder Subjective Notes: Conditional Voluntary Interim History: The nursing staff reported the patient retract his 3 day notice. He has been pleasant, cooperative, denies new symptoms. The social media campaign manager reported there is no placement available at this moment. He was referred to [facility] nursing [facility]. On interview the patient denies new symptoms, waiting for placement Mental Status Exam Mental Status Exam Patient Appearance: Well Grooomed and Appropriate Patient Orientation: Person and Situation Level of Consciousness: Awake and Appropriate Patient Behavior: Guarded and Passive Mood Description: Calm Affect Description: Constricted Patient Cognition Impaired: Yes Ability to Follow Directions: Good Speech Pattern: Clear Hallucinations: None Delusions: Not Present Thought Process: Distracted and Linear Thought Content: positive for [place] and positive for Circumstantial Judgement: Fair Diagnostics Vital Signs (24Hr): Vital Signs - 24 hr 11/09/22 18:00 Temperature 97.5 F Pulse Rate 114 H Respiratory Rate 18 Blood Pressure 134/77 Pulse Oximetry 92 Oxygen Delivery Method Room Air BMI result Body Mass Index 43.8 Labs 11/06/22 06:35 11/10/22 08:06 Labs: Laboratory Results - last 48 hr 11/08/22 11/08/22 11/08/22 12:16 16:19 20:46 Creatinine Estim Creat Clear Calc Estimated GFR POC Glucose 195 H 217 H Random Vancomycin 14.3 L 11/09/22 11/09/22 11/09/22 07:55 08:05 11:15 Creatinine 0.83 Estim Creat Clear Calc 145.3 Estimated GFR > 60 POC Glucose 179 H Random Vancomycin 15.6 11/09/22 11/09/22 11/09/22 11:16 16:41 19:56 Creatinine Estim Creat Clear Calc Estimated GFR POC Glucose 195 H 167 H 182 H Random Vancomycin 11/10/22 11/10/22 11/10/22 07:43 08:06 11:19 Creatinine 1.05 Estim Creat Clear Calc 114.8 Estimated GFR > 60 POC Glucose 193 H 193 H Random Vancomycin Imaging Radiology Impressions: ITS Impressions Hand/Wrist X-Ray 10/07/22 22:07 IMPRESSION: Old healed fracture of the distal shaft of the fifth metacarpal bone and question old or healing fracture of the neck of the fourth metacarpal bone. No acute fracture. Foot X-Ray 10/11/22 12:56 IMPRESSION: RIGHT FOOT: Soft tissue ulceration at the distal aspect of the right great toe. Erosion/lucency through the distal tuft of the 1st distal phalanx, likely indicating osteomyelitis. LEFT FOOT: 1. Soft tissue ulceration along the distal/medial aspect of the great toe with circumferential soft tissue swelling. No radiopaque foreign body. No adjacent cortical erosion or periosteal reaction to suggest acute osteomyelitis, however, this may be occult on plain radiographs. 2. Severe osteoarthritis with prominent bony remodeling throughout the tibiotalar and midfoot joints, similar when compared to the prior radiographs from 2016. Foot X-Ray 10/11/22 12:56 IMPRESSION: RIGHT FOOT: Soft tissue ulceration at the distal aspect of the right great toe. Erosion/lucency through the distal tuft of the 1st distal phalanx, likely indicating osteomyelitis. LEFT FOOT: 1. Soft tissue ulceration along the distal/medial aspect of the great toe with circumferential soft tissue swelling. No radiopaque foreign body. No adjacent cortical erosion or periosteal reaction to suggest acute osteomyelitis, however, this may be occult on plain radiographs. 2. Severe osteoarthritis with prominent bony remodeling throughout the tibiotalar and midfoot joints, similar when compared to the prior radiographs from 2016. Duplex Scan Lower Extremity Artery 10/13/22 19:25 IMPRESSION: 1. No hemodynamically significant stenosis in the right lower extremity. 2. Incidental note is made of cardiac arrhythmia. Chest X-Ray 10/15/22 13:39 IMPRESSION: Right upper extremity PICC line tip projects over SVC. Medications Medications Current Medications Acetaminophen (Acetaminophen 325 Mg Tablet) 650 mg PO Q6H PRN PRN Reason: Headache/Pain Mild Scale (1-3) Last Admin: 11/08/22 10:31 Dose: 650 mg Al Hydroxide/Mg Hydroxide (Magnesium Hydrox/Alum Hydrox 30 Ml Oral.Susp) 30 ml PO Q6H PRN PRN Reason: Heartburn/Nausea Last Admin: 11/02/22 04:39 Dose: 30 ml Albuterol Sulfate (Albuterol Sulfate 90 Mcg 8 Gm Inhaler) 2 puff INHALE Q4H PRN PRN Reason: Shortness Of Breath Last Admin: 11/10/22 08:36 Dose: 2 puff Apixaban (Apixaban 5 Mg Tablet) 5 mg PO BID YOHAN Last Admin: 11/10/22 08:27 Dose: 5 mg Aripiprazole (Aripiprazole 10 Mg Tablet) 10 mg PO DAILY [facility] Last Admin: 11/10/22 08:27 Dose: 10 mg Atorvastatin Calcium (Atorvastatin Calcium 80 Mg Tablet) 80 mg PO DAILY [facility] Last Admin: 11/10/22 08:27 Dose: 80 mg Diltiazem HCl (Diltiazem Hcl Cd 120 Mg Cap.Er.Deg) 120 mg PO DAILY@11 [facility]; Protocol Last Admin: 11/10/22 11:12 Dose: 120 mg Doxycycline Monohydrate (Doxycycline Monohydrate 100 Mg Capsule) 100 mg PO Q12H [facility] Stop: 12/23/22 09:01 Duloxetine HCl (Duloxetine Hcl 60 Mg Capsule.) 60 mg PO BID [facility] Last Admin: 11/10/22 08:26 Dose: 60 mg Ferrous Sulfate (Ferrous Sulfate 324 Mg Tablet.) 324 mg PO MoWeFr@0900 [facility] Last Admin: 11/10/22 08:27 Dose: Not Given Gabapentin (Gabapentin 400 Mg Capsule) 400 mg PO QID [facility] Last Admin: 11/10/22 08:27 Dose: 400 mg Glucose (Glucose Gel 15 Gm Gel..Gram.) 15 gm PO Q15M PRN; Protocol PRN Reason: per Hypoglycemia Standing Ord. Hydroxyzine HCl (Hydroxyzine Hcl 25 Mg Tablet) 25 mg PO TID PRN PRN Reason: Anxiety Last Admin: 11/02/22 04:01 Dose: 25 mg Dextrose (D10) 250 mls @ 750 mls/hr IV Q15M PRN; Protocol PRN Reason: per Hypoglycemia Standing Ord. Vancomycin HCl 750 mg/ Sodium (Chloride) 265 mls @ 265 mls/hr IV Q12H [facility] Stop: 11/24/22 13:59 Last Infusion: 11/10/22 04:03 Dose: Infused Ibuprofen (Ibuprofen 600 Mg Tablet) 600 mg PO Q6H PRN PRN Reason: Pain, Moderate(Pain Scale 4-6) Last Admin: 11/05/22 23:51 Dose: 600 mg Insulin Human Lispro (Insulin Lispro 100 Unit/Ml 3 Ml Vial) 0 unit SUBCUT QIDACHS [facility]; Protocol Last Admin: 11/10/22 11:27 Dose: 2 unit Lidocaine (Lidocaine 4 % Patch Adh..Patch) 1 patch TRANSDERMA DAILY [facility] Last Admin: 11/10/22 08:28 Dose: Not Given Loperamide HCl (Loperamide Hcl 2 Mg Capsule) 2 mg PO Q4H PRN PRN Reason: Diarrhea Last Admin: 11/09/22 09:03 Dose: 2 mg Lorazepam (Lorazepam 1 Mg Tablet) 2 mg PO TID PRN PRN Reason: Anxiety Last Admin: 11/10/22 11:12 Dose: 2 mg Magnesium Hydroxide (Milk Of Magnesia 30 Ml Oral.Susp) 30 ml PO DAILY PRN PRN Reason: Constipation Last Admin: 10/08/22 15:52 Dose: 30 ml Melatonin (Melatonin 3 Mg Tablet) 3 mg PO BEDTIME PRN PRN Reason: Insomnia Last Admin: 11/02/22 21:37 Dose: 3 mg Metformin HCl (Metformin Hcl 1,000 Mg Tablet) 1,000 mg PO DAILY [facility] Last Admin: 11/10/22 08:26 Dose: 1,000 mg Metoprolol Succinate (Metoprolol Succinate Er 25 Mg Tab.Er.24h) 75 mg PO BID [facility]; Protocol Last Admin: 11/10/22 08:27 Dose: 75 mg Naproxen (Naproxen 500 Mg Tablet) 500 mg PO BID PRN PRN Reason: Knee pain Last Admin: 10/24/22 22:27 Dose: 500 mg Nitroglycerin (Nitroglycerin 0.4 Mg Tab.Subl) 0.4 mg SUBLINGUAL Q5M PRN PRN Reason: Chest Pain Nystatin (Nystatin Powder 15 Gm Bottle) 1 appl TOPICAL BID [facility]; Protocol Last Admin: 11/10/22 08:27 Dose: Not Given Omeprazole (Omeprazole 20 Mg Capsule.Dr) 20 mg PO DAILY@0630 [facility] Last Admin: 11/10/22 05:56 Dose: 20 mg Ondansetron HCl (Ondansetron Odt 4 Mg Tab.Rapdis) 4 mg TRANSLINGU Q8H PRN PRN Reason: Nausea Last Admin: 11/09/22 08:37 Dose: 4 mg Phenytoin Sodium (Phenytoin Sodium Extended 100 Mg Capsule) 200 mg PO DAILY [facility] Last Admin: 11/10/22 08:27 Dose: 200 mg Phenytoin Sodium (Phenytoin Sodium Extended 100 Mg Capsule) 400 mg PO BEDTIME [facility] Last Admin: 11/09/22 21:10 Dose: 400 mg Quetiapine Fumarate (Quetiapine Fumarate 100 Mg Tablet) 100 mg PO BEDTIME PRN PRN Reason: Insomnia Last Admin: 11/07/22 21:35 Dose: 100 mg Quetiapine Fumarate (Quetiapine Fumarate 200 Mg Tablet) 200 mg PO BEDTIME [facility] Last Admin: 11/09/22 21:10 Dose: 200 mg Senna (Sennosides 8.6 Mg Tablet) 8.6 mg PO DAILY [facility] Last Admin: 11/10/22 08:30 Dose: Not Given Simethicone (Simethicone 80 Mg Tab.Chew) 80 mg PO TID PRN PRN Reason: Indigestion Last Admin: 11/09/22 08:38 Dose: 80 mg Sodium Chloride (0.9 % Sodium Chloride Flush 10 Ml Syringe) 5 ml IVFLUSH TID [facility] Last Admin: 11/10/22 08:36 Dose: 5 ml Torsemide (Torsemide 20 Mg Tablet) 40 mg PO DAILY [facility]; Protocol Last Admin: 11/10/22 08:27 Dose: 40 mg Trazodone HCl (Trazodone Hcl 50 Mg Tablet) 50 mg PO BEDTIME [facility] Last Admin: 11/09/22 21:10 Dose: 50 mg Trazodone HCl (Trazodone Hcl 50 Mg Tablet) 50 mg PO BEDTIME PRN PRN Reason: Insomnia Allergies Allergies Allergy/AdvReac Type Severity Reaction Status Date / Time aspirin Allergy Severe Ocassional Verified 11/09/22 08:53 rash, Hives, throat and tongue swelling bee pollen [BEE STINGS] Allergy Severe Anaphylaxis Verified 11/09/22 08:53 Penicillins Allergy Severe Anaphylaxis Verified 11/09/22 08:53 povidone-iodine [Betadine] Allergy Severe Redness of Verified 04/08/22 14:18 Skin soap [Betadine] Allergy Severe Redness of Verified 04/08/22 14:18 Skin spider venom [SPIDER BITES] Allergy Severe Hives Verified 04/08/22 14:18 amoxicillin Allergy Intermediate Hives Verified 04/08/22 14:18 adhesive tape Allergy Mild Rash Verified 11/09/22 08:53 clindamycin Allergy Mild Rash Verified 11/09/22 08:53 latex [Latex] Allergy Mild Rash Verified 11/09/22 08:53 shrimp Allergy Hives Verified 06/21/22 11:48 bupropion [From WELLBUTRIN] AdvReac Severe Seizure Verified 11/09/22 08:53 Assessment & Plan Assessment & Plan (1) Atrial fibrillation with rapid ventricular response: Status: Acute Code(s): I48.91 - Unspecified atrial fibrillation Plan On checking pulse rate using his radial pulse, his rate is about 110/Min. On the recorded vital signs, some of the pulse rates are well within normal range but some of them are quite high up to 145/Min. With regard to the home regimen, listed to be on diltiazem ER 120 mg daily, metoprolol ER 70 mg daily and digoxin alternate days. Current meds however are diltiazem CD 1 20 mg daily with metoprolol at b.i.d. dosing. However, do not see digoxin. Echocardiogram from last year with LVEF of 55-60%. Normal right ventricular size and function. Mildly elevated right atrial pressure. IVC dilated. Other labs reviewed. Hemoglobin 9.7. White cell 6.2. Platelets 280. Potassium 3.5. Creatinine is 0.92. BUN is 18. High sensitivity troponins are well within normal range. Overall, atrial fibrillation with rapid rate could be from holding off on digoxin. Recommend starting it again. There is also discrepancy between what the patient is a send was reconciled. He states he is taking every day. Hence resume digoxin daily after loading dose and monitor EKGs periodically. Will follow as needed. Discussed with psychiatry as well as hospitalist service. Plan 1. Continue same treatment. 2. Waiting for placement Reason for continued inpatient stay Substantial Risk for: inability to function, rapid decompensation and med/psych decompensation Time Spent With Patient Time: Total time managing care of this patient today __20__ minutes.
[2022-11-10 12:21] LABS: Vancomycin Random 16.4 mcg/mL (15-20)
--- NOTE | 2022-11-10 14:57 | HO.WOUND ---
Wound Care Consult Reason for consult: Weeping leg ulcerations (chronic) Patient has a wound on his right anterior lower leg. ABD pad and elastic retention netting was removed at the time of consult. Patient was sitting in wheelchair with legs dependent. Was able to remove some of the fibrinous tissue on the wound bed with the gauze. After cleaning, the wound bed was mostly pink with a small amount of yellow. Hyperpigmented, scaly periwound. Edema was noted in the leg. Copious amount of serous drainage noted on dressing. Wound was dripping serous fluid during assessment. Wound measured 1.7cm x 1.2cm x 0.1cm. Wound cleaned with gauze, alginate ag cut to wound size. Covered with an ABD pad and secured with the elastic retention netting. Recommendation: Patient's edema will have to be addressed. Not sure what is available for the unit, but some sort of compression will be needed to help heal this wound and prevent more from reoccurring. Some options would be uli wraps from the top of the toes to just below the knee with 50% overlap and 50% retention, if uli wraps aren't available then maybe some sort of compression stocking or teds. If able, try to prevent legs from being dependent while in wheelchair for extended amounts of time. Will need to elevate as much as possible during the day if compression is not an option. For the wound on the right anterior lower leg, cleanse wound with normal saline. Cut the alginate ag to the wound size and place on the wound bed. Cover with the ABD pad and may secure with the elastic retention netting. If compression is going to be used, the netting will probably indent into the skin, so will probably have to secure the secondary dressing with tape. Just be gentle with tape removal on the skin. If there are any changes or questions please feel free and consult again. Patient can may follow up in the wound care clinic after discharge if the patient is still in need of our services.
--- NOTE | 2022-11-10 15:03 | MHC.CLN ---
CONSULT WEEPING AREA TO RLE. INTAKE USUALLY EXCELLENT. DIET=DIABETIC 2200 KCAL. MONITOR SKIN INTEGRITY.
[2022-11-10 16:34] LABS: Glucose, Whole Blood 149 mg/dL (60-115)
[2022-11-10 21:02] LABS: Glucose, Whole Blood 151 mg/dL (60-115)
[2022-11-10 22:00] VITALS: BP 121/59; PULSE 124; O2SAT 97
[2022-11-10] MEDS: Phenytoin Sodium Extended 100 MG CAPSULE 400 MG PO (22:09)
[2022-11-10] MEDS: traZODone HCL 50 MG TABLET PO (22:11)
[2022-11-10] MEDS: QUEtiapine Fumarate 200 MG TABLET PO (22:11)
[2022-11-10] MEDS: QUEtiapine Fumarate 100 MG TABLET PO (23:06)
[2022-11-11] MEDS: vancomycin HCL 750 MG in 0.9 % Sodium Chloride 250 ML 250 MG IV ×2 (01:00→13:23)
[2022-11-11] MEDS: Nystatin Powder 15 GM BOTTLE 1 APPL TOPICAL (04:39)
[2022-11-11] MEDS: Omeprazole 20 MG CAPSULE.DR PO (06:26)
[2022-11-11 07:30] VITALS: BP 134/73; PULSE 125; RESP 15; TEMP 36.4; O2SAT 96
[2022-11-11] MEDS: Albuterol Sulfate 90 MCG 8 GM INHALER 2 PUFF INHALE (07:48)
[2022-11-11 08:23] LABS: Creatinine Clr Calc Pharmacy 126.9; Estimated Glomerular Filt Rate > 60
[2022-11-11] MEDS: Gabapentin 400 MG CAPSULE PO ×4 (08:26→20:44)
[2022-11-11] MEDS: metFORMIN HCl 1,000 MG TABLET 1000 MG PO (08:26)
[2022-11-11] MEDS: Phenytoin Sodium Extended 100 MG CAPSULE 200 MG PO (08:27)
[2022-11-11] MEDS: Metoprolol Succinate ER 25 MG TAB.ER.24H 75 MG PO ×2 (08:27→20:44)
[2022-11-11] MEDS: Apixaban 5 MG TABLET PO ×2 (08:27→20:44)
[2022-11-11] MEDS: ARIPiprazole 10 MG TABLET PO (08:27)
[2022-11-11] MEDS: DULoxetine HCl 60 MG CAPSULE.DR PO ×2 (08:27→20:44)
[2022-11-11] MEDS: Atorvastatin Calcium 80 MG TABLET PO (08:27)
[2022-11-11] MEDS: Insulin Lispro 100 UNIT/ML 3 ML VIAL SUBCUT ×3 (08:28→20:43)
[2022-11-11] MEDS: LORazepam 1 MG TABLET 2 MG PO ×2 (08:28→17:53)
[2022-11-11] MEDS: Torsemide 20 MG TABLET 40 MG PO (08:28)
[2022-11-11] MEDS: 0.9 % Sodium Chloride Flush 10 ML SYRINGE 5 ML IVFLUSH ×4 (08:29→20:42)
[2022-11-11 09:00] LABS: Glucose, Whole Blood 170 mg/dL (60-115)
[2022-11-11] MEDS: dilTIAZem HCL CD 120 MG CAP.ER.DEG PO (11:35)
[2022-11-11 11:40] LABS: Glucose, Whole Blood 165 mg/dL (60-115)
--- NOTE | 2022-11-11 12:30 | HE.PHANOTE ---
Re: vanco SCr is still stable at 0.95 and level today is 15.0. Insight shows pt at steady state and expects same level tomorrow. Will check vanco random again at 1100 on 11/12/22
--- NOTE | 2022-11-11 14:52 | P.PNPSI_ITS ---
Subjective Subjective Date of Service: 11/11/22 Reason For Visit: Major depressive disorder Subjective Notes: Conditional Voluntary Interim History: The nursing staff reported the patient has been pleasant cooperative, fully compliant with treatment. The social worker school reported that his sister stated that his apartment is not available anymore and he will need placement. So far all the nursing homes and custodial facilities have refused him. Wound consult was done yesterday and gave some recommendations. We will order blood work for tomorrow. On interview the patient denies new symptoms, waiting for placement Mental Status Exam Mental Status Exam Patient Appearance: Well Grooomed and Appropriate Patient Orientation: Person and Situation Level of Consciousness: Awake and Appropriate Patient Behavior: Guarded and Passive Mood Description: Withdrawn Affect Description: Constricted Patient Cognition Impaired: Yes Ability to Follow Directions: Good Speech Pattern: Clear Hallucinations: None Delusions: Not Present Thought Process: Linear Thought Content: positive for [place] and positive for Goal Oriented Judgement: Fair Diagnostics Vital Signs (24Hr): Vital Signs - 24 hr 11/10/22 22:00 11/11/22 07:30 Temperature 97.6 F Pulse Rate 124 H 125 H Respiratory Rate 15 Blood Pressure 121/59 L 134/73 Pulse Oximetry 97 96 Oxygen Delivery Method Room Air Room Air BMI result Body Mass Index 43.8 Labs 11/06/22 06:35 11/11/22 08:00 Labs: Laboratory Results - last 48 hr 11/09/22 11/09/22 11/10/22 16:41 19:56 07:43 Creatinine Estim Creat Clear Calc Estimated GFR POC Glucose 167 H 182 H 193 H Random Vancomycin 11/10/22 11/10/22 11/10/22 08:06 11:19 11:36 Creatinine 1.05 Estim Creat Clear Calc 114.8 Estimated GFR > 60 POC Glucose 193 H Random Vancomycin 16.4 11/10/22 11/10/22 11/11/22 16:27 20:57 08:00 Creatinine 0.95 Estim Creat Clear Calc 126.9 Estimated GFR > 60 POC Glucose 149 H 151 H Random Vancomycin 11/11/22 11/11/22 11/11/22 08:03 11:34 11:57 Creatinine Estim Creat Clear Calc Estimated GFR POC Glucose 170 H 165 H Random Vancomycin 15.0 Imaging Radiology Impressions: ITS Impressions Hand/Wrist X-Ray 10/07/22 22:07 IMPRESSION: Old healed fracture of the distal shaft of the fifth metacarpal bone and question old or healing fracture of the neck of the fourth metacarpal bone. No acute fracture. Foot X-Ray 10/11/22 12:56 IMPRESSION: RIGHT FOOT: Soft tissue ulceration at the distal aspect of the right great toe. Erosion/lucency through the distal tuft of the 1st distal phalanx, likely indicating osteomyelitis. LEFT FOOT: 1. Soft tissue ulceration along the distal/medial aspect of the great toe with circumferential soft tissue swelling. No radiopaque foreign body. No adjacent cortical erosion or periosteal reaction to suggest acute osteomyelitis, however, this may be occult on plain radiographs. 2. Severe osteoarthritis with prominent bony remodeling throughout the tibiotalar and midfoot joints, similar when compared to the prior radiographs from 2016. Foot X-Ray 10/11/22 12:56 IMPRESSION: RIGHT FOOT: Soft tissue ulceration at the distal aspect of the right great toe. Erosion/lucency through the distal tuft of the 1st distal phalanx, likely indicating osteomyelitis. LEFT FOOT: 1. Soft tissue ulceration along the distal/medial aspect of the great toe with circumferential soft tissue swelling. No radiopaque foreign body. No adjacent cortical erosion or periosteal reaction to suggest acute osteomyelitis, however, this may be occult on plain radiographs. 2. Severe osteoarthritis with prominent bony remodeling throughout the tibiotalar and midfoot joints, similar when compared to the prior radiographs from 2016. Duplex Scan Lower Extremity Artery 10/13/22 19:25 IMPRESSION: 1. No hemodynamically significant stenosis in the right lower extremity. 2. Incidental note is made of cardiac arrhythmia. Chest X-Ray 10/15/22 13:39 IMPRESSION: Right upper extremity PICC line tip projects over SVC. Medications Medications Current Medications Acetaminophen (Acetaminophen 325 Mg Tablet) 650 mg PO Q6H PRN PRN Reason: Headache/Pain Mild Scale (1-3) Last Admin: 11/08/22 10:31 Dose: 650 mg Al Hydroxide/Mg Hydroxide (Magnesium Hydrox/Alum Hydrox 30 Ml Oral.Susp) 30 ml PO Q6H PRN PRN Reason: Heartburn/Nausea Last Admin: 11/02/22 04:39 Dose: 30 ml Albuterol Sulfate (Albuterol Sulfate 90 Mcg 8 Gm Inhaler) 2 puff INHALE Q4H PRN PRN Reason: Shortness Of Breath Last Admin: 11/11/22 07:48 Dose: 2 puff Apixaban (Apixaban 5 Mg Tablet) 5 mg PO BID [facility] Last Admin: 11/11/22 08:27 Dose: 5 mg Aripiprazole (Aripiprazole 10 Mg Tablet) 10 mg PO DAILY [facility] Last Admin: 11/11/22 08:27 Dose: 10 mg Atorvastatin Calcium (Atorvastatin Calcium 80 Mg Tablet) 80 mg PO DAILY [facility] Last Admin: 11/11/22 08:27 Dose: 80 mg Diltiazem HCl (Diltiazem Hcl Cd 120 Mg Cap.Er.Deg) 120 mg PO DAILY@11 [facility]; Protocol Last Admin: 11/11/22 11:35 Dose: 120 mg Doxycycline Monohydrate (Doxycycline Monohydrate 100 Mg Capsule) 100 mg PO Q12H [facility] Stop: 12/23/22 09:01 Duloxetine HCl (Duloxetine Hcl 60 Mg Capsule.) 60 mg PO BID [facility] Last Admin: 11/11/22 08:27 Dose: 60 mg Ferrous Sulfate (Ferrous Sulfate 324 Mg Tablet.) 324 mg PO MoWeFr@0900 [facility] Last Admin: 11/10/22 08:27 Dose: Not Given Gabapentin (Gabapentin 400 Mg Capsule) 400 mg PO QID [facility] Last Admin: 11/11/22 08:26 Dose: 400 mg Glucose (Glucose Gel 15 Gm Gel..Gram.) 15 gm PO Q15M PRN; Protocol PRN Reason: per Hypoglycemia Standing Ord. Hydroxyzine HCl (Hydroxyzine Hcl 25 Mg Tablet) 25 mg PO TID PRN PRN Reason: Anxiety Last Admin: 11/02/22 04:01 Dose: 25 mg Dextrose (D10) 250 mls @ 750 mls/hr IV Q15M PRN; Protocol PRN Reason: per Hypoglycemia Standing Ord. Vancomycin HCl 750 mg/ Sodium (Chloride) 265 mls @ 265 mls/hr IV Q12H [facility] Stop: 11/24/22 13:59 Last Admin: 11/11/22 13:23 Dose: 250 mls/hr Ibuprofen (Ibuprofen 600 Mg Tablet) 600 mg PO Q6H PRN PRN Reason: Pain, Moderate(Pain Scale 4-6) Last Admin: 11/05/22 23:51 Dose: 600 mg Insulin Human Lispro (Insulin Lispro 100 Unit/Ml 3 Ml Vial) 0 unit SUBCUT QIDACHS [facility]; Protocol Last Admin: 11/11/22 11:43 Dose: 2 unit Lidocaine (Lidocaine 4 % Patch Adh..Patch) 1 patch TRANSDERMA DAILY [facility] Last Admin: 11/11/22 08:30 Dose: Not Given Loperamide HCl (Loperamide Hcl 2 Mg Capsule) 2 mg PO Q4H PRN PRN Reason: Diarrhea Last Admin: 11/09/22 09:03 Dose: 2 mg Lorazepam (Lorazepam 1 Mg Tablet) 2 mg PO TID PRN PRN Reason: Anxiety Last Admin: 11/11/22 08:28 Dose: 2 mg Magnesium Hydroxide (Milk Of Magnesia 30 Ml Oral.Susp) 30 ml PO DAILY PRN PRN Reason: Constipation Last Admin: 10/08/22 15:52 Dose: 30 ml Melatonin (Melatonin 3 Mg Tablet) 3 mg PO BEDTIME PRN PRN Reason: Insomnia Last Admin: 11/02/22 21:37 Dose: 3 mg Metformin HCl (Metformin Hcl 1,000 Mg Tablet) 1,000 mg PO DAILY [facility] Last Admin: 11/11/22 08:26 Dose: 1,000 mg Metoprolol Succinate (Metoprolol Succinate Er 25 Mg Tab.Er.24h) 75 mg PO BID [facility]; Protocol Last Admin: 11/11/22 08:27 Dose: 75 mg Naproxen (Naproxen 500 Mg Tablet) 500 mg PO BID PRN PRN Reason: Knee pain Last Admin: 10/24/22 22:27 Dose: 500 mg Nitroglycerin (Nitroglycerin 0.4 Mg Tab.Subl) 0.4 mg SUBLINGUAL Q5M PRN PRN Reason: Chest Pain Nystatin (Nystatin Powder 15 Gm Bottle) 1 appl TOPICAL BID [facility]; Protocol Last Admin: 11/11/22 04:39 Dose: 1 appl Omeprazole (Omeprazole 20 Mg Capsule.Dr) 20 mg PO DAILY@0630 [facility] Last Admin: 11/11/22 06:26 Dose: 20 mg Ondansetron HCl (Ondansetron Odt 4 Mg Tab.Rapdis) 4 mg TRANSLINGU Q8H PRN PRN Reason: Nausea Last Admin: 11/09/22 08:37 Dose: 4 mg Phenytoin Sodium (Phenytoin Sodium Extended 100 Mg Capsule) 200 mg PO DAILY [facility] Last Admin: 11/11/22 08:27 Dose: 200 mg Phenytoin Sodium (Phenytoin Sodium Extended 100 Mg Capsule) 400 mg PO BEDTIME [facility] Last Admin: 11/10/22 22:09 Dose: 400 mg Quetiapine Fumarate (Quetiapine Fumarate 100 Mg Tablet) 100 mg PO BEDTIME PRN PRN Reason: Insomnia Last Admin: 11/10/22 23:06 Dose: 100 mg Quetiapine Fumarate (Quetiapine Fumarate 200 Mg Tablet) 200 mg PO BEDTIME [facility] Last Admin: 11/10/22 22:11 Dose: 200 mg Senna (Sennosides 8.6 Mg Tablet) 8.6 mg PO DAILY [facility] Last Admin: 11/11/22 08:30 Dose: Not Given Simethicone (Simethicone 80 Mg Tab.Chew) 80 mg PO TID PRN PRN Reason: Indigestion Last Admin: 11/09/22 08:38 Dose: 80 mg Sodium Chloride (0.9 % Sodium Chloride Flush 10 Ml Syringe) 5 ml IVFLUSH TID [facility] Last Admin: 11/11/22 13:23 Dose: 5 ml Torsemide (Torsemide 20 Mg Tablet) 40 mg PO DAILY [facility]; Protocol Last Admin: 11/11/22 08:28 Dose: 40 mg Trazodone HCl (Trazodone Hcl 50 Mg Tablet) 50 mg PO BEDTIME [facility] Last Admin: 11/10/22 22:11 Dose: 50 mg Trazodone HCl (Trazodone Hcl 50 Mg Tablet) 50 mg PO BEDTIME PRN PRN Reason: Insomnia Allergies Allergies Allergy/AdvReac Type Severity Reaction Status Date / Time aspirin Allergy Severe Ocassional Verified 11/09/22 08:53 rash, Hives, throat and tongue swelling bee pollen [BEE STINGS] Allergy Severe Anaphylaxis Verified 11/09/22 08:53 Penicillins Allergy Severe Anaphylaxis Verified 11/09/22 08:53 povidone-iodine [Betadine] Allergy Severe Redness of Verified 04/08/22 14:18 Skin soap [Betadine] Allergy Severe Redness of Verified 04/08/22 14:18 Skin spider venom [SPIDER BITES] Allergy Severe Hives Verified 04/08/22 14:18 amoxicillin Allergy Intermediate Hives Verified 04/08/22 14:18 adhesive tape Allergy Mild Rash Verified 11/09/22 08:53 clindamycin Allergy Mild Rash Verified 11/09/22 08:53 latex [Latex] Allergy Mild Rash Verified 06/06/23 08:53 shrimp Allergy Hives Verified 06/21/22 11:48 bupropion [From WELLBUTRIN] AdvReac Severe Seizure Verified 11/09/22 08:53 Assessment & Plan Assessment & Plan (1) Atrial fibrillation with rapid ventricular response: Status: Acute Code(s): I48.91 - Unspecified atrial fibrillation Plan On checking pulse rate using his radial pulse, his rate is about 110/Min. On the recorded vital signs, some of the pulse rates are well within normal range but some of them are quite high up to 145/Min. With regard to the home regimen, listed to be on diltiazem ER 120 mg daily, metoprolol ER 70 mg daily and digoxin alternate days. Current meds however are diltiazem CD 1 20 mg daily with metoprolol at b.i.d. dosing. However, do not see digoxin. Echocardiogram from last year with LVEF of 55-60%. Normal right ventricular size and function. Mildly elevated right atrial pressure. IVC dilated. Other labs reviewed. Hemoglobin 9.7. White cell 6.2. Platelets 280. Potassium 3.5. Creatinine is 0.92. BUN is 18. High sensitivity troponins are well within normal range. Overall, atrial fibrillation with rapid rate could be from holding off on digoxin. Recommend starting it again. There is also discrepancy between what the patient is a send was reconciled. He states he is taking every day. Hence resume digoxin daily after loading dose and monitor EKGs periodically. Will follow as needed. Discussed with psychiatry as well as hospitalist service. Plan 1. Continue same treatment. 2. Waiting for placement Reason for continued inpatient stay Substantial Risk for: inability to function, rapid decompensation and med/psych decompensation Time Spent With Patient Time: Total time managing care of this patient today _20___ minutes.
[2022-11-11 16:45] LABS: Glucose, Whole Blood 143 mg/dL (60-115)
[2022-11-11 18:00] VITALS: BP 130/62; PULSE 112; RESP 18; TEMP 36.7; O2SAT 95
[2022-11-11 20:40] LABS: Glucose, Whole Blood 197 mg/dL (60-115)
[2022-11-11] MEDS: QUEtiapine Fumarate 200 MG TABLET PO (20:44)
[2022-11-11] MEDS: Phenytoin Sodium Extended 100 MG CAPSULE 400 MG PO (20:44)
[2022-11-11] MEDS: traZODone HCL 50 MG TABLET PO (20:45)
[2022-11-11] MEDS: Loperamide HCl 2 MG CAPSULE PO (20:51)
[2022-11-11] MEDS: QUEtiapine Fumarate 100 MG TABLET PO (23:06)
[2022-11-12] MEDS: vancomycin HCL 750 MG in 0.9 % Sodium Chloride 250 ML 250 MG IV ×2 (01:18→13:29)
[2022-11-12] MEDS: Albuterol Sulfate 90 MCG 8 GM INHALER 2 PUFF INHALE (04:33)
[2022-11-12] MEDS: LORazepam 1 MG TABLET 2 MG PO ×2 (04:33→13:27)
[2022-11-12] MEDS: Omeprazole 20 MG CAPSULE.DR PO (05:39)
[2022-11-12 08:14] LABS: MANUAL DIFF FLAG NO
[2022-11-12 08:18] LABS: Basophils Percent Auto 0.3 % (0-2); Eosinophils Absolute Auto 0.1 X10*3/uL (0.0-0.4); Hematocrit 25.6 % (42.0-52.0); Hemoglobin 7.2 g/dl (14.0-18.0); Imm Gran Abs Auto 0.03 X10*3/uL (0.00-0.03); Imm Gran Pct Auto 0.4 % (0.0-0.4); Lymphocytes Absolute Auto 0.8 X10*3/uL (1.2-4.9); Mean Corpuscular HGB Conc 28.1 g/dl (31.0-36.0); Mean Corpuscular Hemoglobin 21.5 pg (27.0-33.0); Mean Corpuscular Volume 76.4 fL (80.0-98.0); Mean Platelet Volume 10.1 fL (9.4-12.4); Monocytes Absolute Auto 0.5 X10*3/uL (0.1-1.2); Monocytes Percent Auto 6.7 % (2-11); Neutrophils Absolute Auto 5.6 x10*3/uL (2.0-8.3); Neutrophils Percent Auto 80.6 % (45-73); Platelet Count 275 X10*3/uL (160-400); Red Blood Count 3.35 X10*6/uL (4.60-5.80); Red Cell Distribution Width 19.3 % (11.0-16.0)
[2022-11-12 08:36] LABS: Anion Gap 13 (12-20); Blood Urea Nitrogen 14 mg/dL (9-16); Calcium 8.4 mg/dL (8.4-10.2); Carbon Dioxide 32 mmol/L (22-29); Chloride 98 mmol/L (96-108); Creatinine Clr Calc Pharmacy 111.7; Estimated Glomerular Filt Rate > 60; Glucose Random 171 mg/dL (60-115); Potassium 3.7 mmol/L (3.3-5.1); Sodium 139 mmol/L (135-145)
[2022-11-12 09:20] VITALS: BP 126/77; PULSE 99; RESP 15; TEMP 36.8; O2SAT 91
[2022-11-12] MEDS: 0.9 % Sodium Chloride Flush 10 ML SYRINGE 5 ML IVFLUSH ×2 (09:44→13:28)
[2022-11-12] MEDS: Metoprolol Succinate ER 25 MG TAB.ER.24H 75 MG PO (09:45)
[2022-11-12] MEDS: metFORMIN HCl 1,000 MG TABLET 1000 MG PO (09:46)
[2022-11-12] MEDS: Gabapentin 400 MG CAPSULE PO ×2 (09:46→13:29)
[2022-11-12] MEDS: Phenytoin Sodium Extended 100 MG CAPSULE 200 MG PO (09:46)
[2022-11-12] MEDS: Torsemide 20 MG TABLET 40 MG PO (09:47)
[2022-11-12] MEDS: Atorvastatin Calcium 80 MG TABLET PO (09:47)
[2022-11-12] MEDS: DULoxetine HCl 60 MG CAPSULE.DR PO (09:47)
[2022-11-12] MEDS: ARIPiprazole 10 MG TABLET PO (09:47)
[2022-11-12] MEDS: Apixaban 5 MG TABLET PO (09:47)
--- NOTE | 2022-11-12 10:45 | P.PNPSI_ITS ---
Subjective Subjective Date of Service: 11/12/22 Reason For Visit: Major depressive disorder Diagnostics Vital Signs (24Hr): Vital Signs - 24 hr 11/11/22 18:00 11/12/22 09:20 Temperature 98.1 F 98.3 F Pulse Rate 112 H 99 Respiratory Rate 18 15 Blood Pressure 130/62 126/77 Pulse Oximetry 95 91 L Oxygen Delivery Method Room Air Room Air BMI result Body Mass Index 43.8 Labs 11/12/22 07:56 11/12/22 07:56 Labs: Laboratory Results - last 48 hr 11/10/22 11/10/22 11/10/22 11:19 11:36 16:27 WBC RBC Hgb Hct MCV MCH MCHC RDW Plt Count MPV Immature Gran % (Auto) Neut % (Auto) Lymph % (Auto) [place] % (Auto) Eos % (Auto) Baso % (Auto) Lymph # (Auto) [place] # (Auto) Eos # (Auto) Baso # (Auto) Abs Immat Gran (auto) Absolute Neuts (auto) Absolute Nucleated RBC Nucleated RBC % (auto) Sodium Potassium Chloride Carbon Dioxide Anion Gap BUN Creatinine Estim Creat Clear Calc Estimated GFR POC Glucose 193 H 149 H Random Glucose Calcium Random Vancomycin 16.4 11/10/22 11/11/22 11/11/22 20:57 08:00 08:03 WBC RBC Hgb Hct MCV MCH MCHC RDW Plt Count MPV Immature Gran % (Auto) Neut % (Auto) Lymph % (Auto) [place] % (Auto) Eos % (Auto) Baso % (Auto) Lymph # (Auto) [place] # (Auto) Eos # (Auto) Baso # (Auto) Abs Immat Gran (auto) Absolute Neuts (auto) Absolute Nucleated RBC Nucleated RBC % (auto) Sodium Potassium Chloride Carbon Dioxide Anion Gap BUN Creatinine 0.95 Estim Creat Clear Calc 126.9 Estimated GFR > 60 POC Glucose 151 H 170 H Random Glucose Calcium Random Vancomycin 11/11/22 11/11/22 11/11/22 11:34 11:57 16:38 WBC RBC Hgb Hct MCV MCH MCHC RDW Plt Count MPV Immature Gran % (Auto) Neut % (Auto) Lymph % (Auto) [place] % (Auto) Eos % (Auto) Baso % (Auto) Lymph # (Auto) [place] # (Auto) Eos # (Auto) Baso # (Auto) Abs Immat Gran (auto) Absolute Neuts (auto) Absolute Nucleated RBC Nucleated RBC % (auto) Sodium Potassium Chloride Carbon Dioxide Anion Gap BUN Creatinine Estim Creat Clear Calc Estimated GFR POC Glucose 165 H 143 H Random Glucose Calcium Random Vancomycin 15.0 11/11/22 11/12/22 11/12/22 20:14 07:56 07:56 WBC 7.0 RBC 3.35 L Hgb 7.2 L Hct 25.6 L MCV 76.4 L MCH 21.5 L MCHC 28.1 L RDW 19.3 H Plt Count 275 MPV 10.1 Immature Gran % (Auto) 0.4 Neut % (Auto) 80.6 H Lymph % (Auto) 11.0 L [place] % (Auto) 6.7 Eos % (Auto) 1.0 Baso % (Auto) 0.3 Lymph # (Auto) 0.8 L [place] # (Auto) 0.5 Eos # (Auto) 0.1 Baso # (Auto) 0.0 Abs Immat Gran (auto) 0.03 Absolute Neuts (auto) 5.6 Absolute Nucleated RBC 0.000 Nucleated RBC % (auto) 0.0 Sodium Potassium Chloride Carbon Dioxide Anion Gap BUN Creatinine 1.04 Estim Creat Clear Calc 116.0 Estimated GFR > 60 POC Glucose 197 H Random Glucose Calcium Random Vancomycin 11/12/22 07:56 WBC RBC Hgb Hct MCV MCH MCHC RDW Plt Count MPV Immature Gran % (Auto) Neut % (Auto) Lymph % (Auto) [place] % (Auto) Eos % (Auto) Baso % (Auto) Lymph # (Auto) [place] # (Auto) Eos # (Auto) Baso # (Auto) Abs Immat Gran (auto) Absolute Neuts (auto) Absolute Nucleated RBC Nucleated RBC % (auto) Sodium 139 Potassium 3.7 D Chloride 98 Carbon Dioxide 32 H Anion Gap 13 BUN 14 Creatinine 1.08 Estim Creat Clear Calc 111.7 Estimated GFR > 60 POC Glucose Random Glucose 171 H Calcium 8.4 Random Vancomycin Imaging Radiology Impressions: ITS Impressions Hand/Wrist X-Ray 10/07/22 22:07 IMPRESSION: Old healed fracture of the distal shaft of the fifth metacarpal bone and question old or healing fracture of the neck of the fourth metacarpal bone. No acute fracture. Foot X-Ray 10/11/22 12:56 IMPRESSION: RIGHT FOOT: Soft tissue ulceration at the distal aspect of the right great toe. Erosion/lucency through the distal tuft of the 1st distal phalanx, likely indicating osteomyelitis. LEFT FOOT: 1. Soft tissue ulceration along the distal/medial aspect of the great toe with circumferential soft tissue swelling. No radiopaque foreign body. No adjacent cortical erosion or periosteal reaction to suggest acute osteomyelitis, however, this may be occult on plain radiographs. 2. Severe osteoarthritis with prominent bony remodeling throughout the tibiotalar and midfoot joints, similar when compared to the prior radiographs from 2016. Foot X-Ray 10/11/22 12:56 IMPRESSION: RIGHT FOOT: Soft tissue ulceration at the distal aspect of the right great toe. Erosion/lucency through the distal tuft of the 1st distal phalanx, likely indicating osteomyelitis. LEFT FOOT: 1. Soft tissue ulceration along the distal/medial aspect of the great toe with circumferential soft tissue swelling. No radiopaque foreign body. No adjacent cortical erosion or periosteal reaction to suggest acute osteomyelitis, however, this may be occult on plain radiographs. 2. Severe osteoarthritis with prominent bony remodeling throughout the tibiotalar and midfoot joints, similar when compared to the prior radiographs from 2016. Duplex Scan Lower Extremity Artery 10/13/22 19:25 IMPRESSION: 1. No hemodynamically significant stenosis in the right lower extremity. 2. Incidental note is made of cardiac arrhythmia. Chest X-Ray 10/15/22 13:39 IMPRESSION: Right upper extremity PICC line tip projects over SVC. Medications Medications Current Medications Acetaminophen (Acetaminophen 325 Mg Tablet) 650 mg PO Q6H PRN PRN Reason: Headache/Pain Mild Scale (1-3) Last Admin: 11/08/22 10:31 Dose: 650 mg Al Hydroxide/Mg Hydroxide (Magnesium Hydrox/Alum Hydrox 30 Ml Oral.Susp) 30 ml PO Q6H PRN PRN Reason: Heartburn/Nausea Last Admin: 11/02/22 04:39 Dose: 30 ml Albuterol Sulfate (Albuterol Sulfate 90 Mcg 8 Gm Inhaler) 2 puff INHALE Q4H PRN PRN Reason: Shortness Of Breath Last Admin: 11/12/22 04:33 Dose: 2 puff Apixaban (Apixaban 5 Mg Tablet) 5 mg PO BID YOHAN Last Admin: 11/12/22 09:47 Dose: 5 mg Aripiprazole (Aripiprazole 10 Mg Tablet) 10 mg PO DAILY [facility] Last Admin: 11/12/22 09:47 Dose: 10 mg Atorvastatin Calcium (Atorvastatin Calcium 80 Mg Tablet) 80 mg PO DAILY [facility] Last Admin: 11/12/22 09:47 Dose: 80 mg Diltiazem HCl (Diltiazem Hcl Cd 120 Mg Cap.Er.Deg) 120 mg PO DAILY@11 [facility]; Protocol Last Admin: 11/11/22 11:35 Dose: 120 mg Doxycycline Monohydrate (Doxycycline Monohydrate 100 Mg Capsule) 100 mg PO Q12H [facility] Stop: 12/23/22 09:01 Duloxetine HCl (Duloxetine Hcl 60 Mg Capsule.) 60 mg PO BID [facility] Last Admin: 11/12/22 09:47 Dose: 60 mg Ferrous Sulfate (Ferrous Sulfate 324 Mg Tablet.) 324 mg PO MoWeFr@0900 [facility] Last Admin: 11/12/22 09:48 Dose: Not Given Gabapentin (Gabapentin 400 Mg Capsule) 400 mg PO QID [facility] Last Admin: 11/12/22 09:46 Dose: 400 mg Glucose (Glucose Gel 15 Gm Gel..Gram.) 15 gm PO Q15M PRN; Protocol PRN Reason: per Hypoglycemia Standing Ord. Hydroxyzine HCl (Hydroxyzine Hcl 25 Mg Tablet) 25 mg PO TID PRN PRN Reason: Anxiety Last Admin: 11/02/22 04:01 Dose: 25 mg Dextrose (D10) 250 mls @ 750 mls/hr IV Q15M PRN; Protocol PRN Reason: per Hypoglycemia Standing Ord. Vancomycin HCl 750 mg/ Sodium (Chloride) 265 mls @ 265 mls/hr IV Q12H [facility] Stop: 11/24/22 13:59 Last Infusion: 11/12/22 02:30 Dose: Infused Ibuprofen (Ibuprofen 600 Mg Tablet) 600 mg PO Q6H PRN PRN Reason: Pain, Moderate(Pain Scale 4-6) Last Admin: 11/05/22 23:51 Dose: 600 mg Insulin Human Lispro (Insulin Lispro 100 Unit/Ml 3 Ml Vial) 0 unit SUBCUT QIDACHS [facility]; Protocol Last Admin: 11/11/22 20:43 Dose: 2 unit Lidocaine (Lidocaine 4 % Patch Adh..Patch) 1 patch TRANSDERMA DAILY [facility] Last Admin: 11/12/22 09:48 Dose: Not Given Loperamide HCl (Loperamide Hcl 2 Mg Capsule) 2 mg PO Q4H PRN PRN Reason: Diarrhea Last Admin: 11/11/22 20:51 Dose: 2 mg Lorazepam (Lorazepam 1 Mg Tablet) 2 mg PO TID PRN PRN Reason: Anxiety Last Admin: 11/12/22 04:33 Dose: 2 mg Magnesium Hydroxide (Milk Of Magnesia 30 Ml Oral.Susp) 30 ml PO DAILY PRN PRN Reason: Constipation Last Admin: 10/08/22 15:52 Dose: 30 ml Melatonin (Melatonin 3 Mg Tablet) 3 mg PO BEDTIME PRN PRN Reason: Insomnia Last Admin: 11/02/22 21:37 Dose: 3 mg Metformin HCl (Metformin Hcl 1,000 Mg Tablet) 1,000 mg PO DAILY YOHAN Last Admin: 11/12/22 09:46 Dose: 1,000 mg Metoprolol Succinate (Metoprolol Succinate Er 25 Mg Tab.Er.24h) 75 mg PO BID [facility]; Protocol Last Admin: 11/12/22 09:45 Dose: 75 mg Naproxen (Naproxen 500 Mg Tablet) 500 mg PO BID PRN PRN Reason: Knee pain Last Admin: 10/24/22 22:27 Dose: 500 mg Nitroglycerin (Nitroglycerin 0.4 Mg Tab.Subl) 0.4 mg SUBLINGUAL Q5M PRN PRN Reason: Chest Pain Nystatin (Nystatin Powder 15 Gm Bottle) 1 appl TOPICAL BID [facility]; Protocol Last Admin: 11/12/22 09:48 Dose: Not Given Omeprazole (Omeprazole 20 Mg Capsule.Dr) 20 mg PO DAILY@0630 [facility] Last Admin: 11/12/22 05:39 Dose: 20 mg Ondansetron HCl (Ondansetron Odt 4 Mg Tab.Rapdis) 4 mg TRANSLINGU Q8H PRN PRN Reason: Nausea Last Admin: 11/09/22 08:37 Dose: 4 mg Phenytoin Sodium (Phenytoin Sodium Extended 100 Mg Capsule) 200 mg PO DAILY [facility] Last Admin: 11/12/22 09:46 Dose: 200 mg Phenytoin Sodium (Phenytoin Sodium Extended 100 Mg Capsule) 400 mg PO BEDTIME YOHAN Last Admin: 11/11/22 20:44 Dose: 400 mg Quetiapine Fumarate (Quetiapine Fumarate 100 Mg Tablet) 100 mg PO BEDTIME PRN PRN Reason: Insomnia Last Admin: 11/11/22 23:06 Dose: 100 mg Quetiapine Fumarate (Quetiapine Fumarate 200 Mg Tablet) 200 mg PO BEDTIME YOHAN Last Admin: 11/11/22 20:44 Dose: 200 mg Senna (Sennosides 8.6 Mg Tablet) 8.6 mg PO DAILY YOHAN Last Admin: 11/12/22 09:48 Dose: Not Given Simethicone (Simethicone 80 Mg Tab.Chew) 80 mg PO TID PRN PRN Reason: Indigestion Last Admin: 11/09/22 08:38 Dose: 80 mg Sodium Chloride (0.9 % Sodium Chloride Flush 10 Ml Syringe) 5 ml IVFLUSH TID S Last Admin: 11/12/22 09:44 Dose: 5 ml Torsemide (Torsemide 20 Mg Tablet) 40 mg PO DAILY [facility]; Protocol Last Admin: 11/12/22 09:47 Dose: 40 mg Trazodone HCl (Trazodone Hcl 50 Mg Tablet) 50 mg PO BEDTIME YOHAN Last Admin: 11/11/22 20:45 Dose: 50 mg Trazodone HCl (Trazodone Hcl 50 Mg Tablet) 50 mg PO BEDTIME PRN PRN Reason: Insomnia Allergies Allergies Allergy/AdvReac Type Severity Reaction Status Date / Time aspirin Allergy Severe Ocassional Verified 11/09/22 08:53 rash, Hives, throat and tongue swelling bee pollen [BEE STINGS] Allergy Severe Anaphylaxis Verified 11/09/22 08:53 Penicillins Allergy Severe Anaphylaxis Verified 11/09/22 08:53 povidone-iodine [Betadine] Allergy Severe Redness of Verified 04/08/22 14:18 Skin soap [Betadine] Allergy Severe Redness of Verified 04/08/22 14:18 Skin spider venom [SPIDER BITES] Allergy Severe Hives Verified 04/08/22 14:18 amoxicillin Allergy Intermediate Hives Verified 04/08/22 14:18 adhesive tape Allergy Mild Rash Verified 11/09/22 08:53 clindamycin Allergy Mild Rash Verified 11/09/22 08:53 latex [Latex] Allergy Mild Rash Verified 11/09/22 08:53 shrimp Allergy Hives Verified 06/21/22 11:48 bupropion [From WELLBUTRIN] AdvReac Severe Seizure Verified 11/09/22 08:53 Assessment & Plan Assessment & Plan (1) Atrial fibrillation with rapid ventricular response: Status: Acute Code(s): I48.91 - Unspecified atrial fibrillation Plan On checking pulse rate using his radial pulse, his rate is about 110/Min. On the recorded vital signs, some of the pulse rates are well within normal range but some of them are quite high up to 145/Min. With regard to the home regimen, listed to be on diltiazem ER 120 mg daily, metoprolol ER 70 mg daily and digoxin alternate days. Current meds however are diltiazem CD 1 20 mg daily with metoprolol at b.i.d. dosing. However, do not see digoxin. Echocardiogram from last year with LVEF of 55-60%. Normal right ventricular size and function. Mildly elevated right atrial pressure. IVC dilated. Other labs reviewed. Hemoglobin 9.7. White cell 6.2. Platelets 280. Potassium 3.5. Creatinine is 0.92. BUN is 18. High sensitivity troponins are well within normal range. Overall, atrial fibrillation with rapid rate could be from holding off on digoxin. Recommend starting it again. There is also discrepancy between what the patient is a send was reconciled. He states he is taking every day. Hence resume digoxin daily after loading dose and monitor EKGs periodically. Will follow as needed. Discussed with psychiatry as well as hospitalist service. Plan 1. Continue same treatment. 2. Waiting for placement Time Spent With Patient Time: Total time managing care of this patient today ____ minutes.
[2022-11-12 11:39] LABS: Vancomycin Random 16.4 mcg/mL (15-20)
[2022-11-12 11:41] LABS: Glucose, Whole Blood 194 mg/dL (60-115)
[2022-11-12] MEDS: Insulin Lispro 100 UNIT/ML 3 ML VIAL SUBCUT (11:45)
[2022-11-12] MEDS: dilTIAZem HCL CD 120 MG CAP.ER.DEG PO (11:46)
--- NOTE | 2022-11-12 11:46 | HE.PHANOTE ---
Re: vanco SCr still stable at 1.08 (slight increase from yesterday 0.95), level today 16.4. Continue on 750 q12 hour dosing and recheck level 11/13 @1100.
[2022-11-12 15:45] VITALS: BP 128/78; PULSE 123
[2022-11-12] MEDS: Nitroglycerin 0.4 MG TAB.SUBL SUBLINGUAL ×2 (15:45→15:52)
--- NOTE | 2022-11-12 15:46 | ECG_ITS ---
Test Reason : CHEST PAIN Blood Pressure : / mmHG Vent. Rate : 106 BPM Atrial Rate : 000 BPM P-R Int : 000 ms QRS Dur : 150 ms QT Int : 394 ms P-R-T Axes : 000 -79 038 degrees QTc Int : 523 ms Atrial fibrillation with rapid ventricular response Left axis deviation Right bundle branch block Inferior infarct (cited on or before 24-MAR-2020) Abnormal ECG When compared with ECG of 28-OCT-2022 22:31, No significant change was found Referred By: Kun Diamond Electronically Signed By:Jasper Wagner
[2022-11-12 15:52] VITALS: BP 138/77; PULSE 106
[2022-11-12 17:01] LABS: Troponin-I High Sensitivity 24.1 ng/L (<3.5-35.0)
--- NOTE | 2022-11-12 23:26 | PM.PSYDC ---
DS: Providers Provider Date of Service: 11/12/22 Date of admission: 10/04/22 17:45 Date of discharge: 11/12/22 Primary care physician: Brown Parada MD Consults: 10/04/22 20:34 Consult to Hospitalist Routine Comment: Consulting Provider: Hospitalist Reason For Exam: direct admission from [facility] 10/05/22 10:58 Consult to Hospitalist Routine Comment: Consulting Provider: Hospitalist Reason For Exam: Direct admission from [facility], admitted yesterday 10/11/22 12:10 Consult to Wound Care Routine Consulting Provider: Dee Dee Barger Reason for consultation: nonhealing ulcers great toes bilaterally 10/11/22 14:38 Consult to Cardiology Routine Consulting Provider: [facility] Reason for consultation: A-fib, hospitalist suggested Cards consult Has provider been notified: No 10/12/22 14:22 Consult to Infectious Diseases Routine Consulting Provider: [facility] Infectious Disease Reason for consultation: osteomyelitis 10/14/22 22:38 Consult to Hospitalist Routine Comment: Consulting Provider: Hospitalist Reason For Exam: OSTEOMYELITIS UNABLE TO GET IV VANCO NO ACCESS 11/09/22 14:19 Consult to Neurology Routine Consulting Provider: [facility] Reason for consultation: ?different AED that may affect less mood/depression Has provider been notified: Yes Attending physician on discharge: Claus Munoz Discharging clinician: Alexandro Patel DS: Diagnosis Discharge Diagnosis (1) Atrial fibrillation with rapid ventricular response: Status: Acute (2) Major depressive disorder: Status: Acute (3) Seizure disorder: Status: Acute (4) Osteomyelitis of foot: Status: Acute (5) PTSD (post-traumatic stress disorder): Status: Acute DS: Medications Discharge Medications Home Medications: Home Medications Medication Instructions Recorded Confirmed apixaban 5 mg tablet (Eliquis) 1 tab PO BID 07/08/22 11/12/22 hydroxyzine HCl 25 mg tablet 1 tab PO TID PRN Anxiety 07/08/22 11/12/22 lorazepam 2 mg tablet 1 tab PO TID PRN Anxiety 07/08/22 11/12/22 metformin 1,000 mg tablet 1 tab PO DAILY 07/08/22 11/12/22 oxycodone 5 mg tablet 1 tab PO TID PRN Pain 07/08/22 11/12/22 pantoprazole 40 mg tablet,delayed 1 tab PO DAILY@30 07/08/22 11/12/22 release phenytoin sodium extended 100 mg 200 mg PO DAILY 07/08/22 11/12/22 capsule trazodone 50 mg tablet 1 tab PO BEDTIME 07/08/22 11/12/22 acetaminophen 500 mg tablet 1,000 mg PO BID PRN Pain 07/09/22 11/12/22 albuterol sulfate 90 mcg/actuation 2 puff inhalation Q4-6H PRN 07/09/22 11/12/22 aerosol inhaler (ProAir HFA) Shortness Of Breath atorvastatin 80 mg tablet 1 tab PO DAILY 07/09/22 11/12/22 duloxetine 30 mg capsule,delayed 60 mg PO BID 07/09/22 11/12/22 release fluticasone propionate 50 1 spray intranasal BID 07/09/22 11/12/22 mcg/actuation nasal spray,suspension gabapentin 400 mg capsule 1 cap PO 5XD 07/09/22 11/12/22 insulin lispro 100 unit/mL 2 - 10 unit subcut TIDAC 07/09/22 11/12/22 subcutaneous pen phenytoin sodium extended 100 mg 400 mg PO BEDTIME 07/09/22 11/12/22 capsule quetiapine 100 mg tablet 1 tab PO BEDTIME PRN Insomnia 07/09/22 11/12/22 quetiapine 200 mg tablet 1 tab PO BID 07/09/22 11/12/22 torsemide 20 mg tablet 1 tab PO DAILY 07/09/22 11/12/22 ferrous sulfate 324 mg (65 mg 324 mg PO DIRECTED 07/30/22 11/12/22 iron) tablet,delayed release aripiprazole 5 mg tablet 7.5 mg PO DAILY 10/04/22 11/12/22 calamine See Rx Instructions .Route .COMPLEX 10/04/22 11/12/22 diltiazem HCl 120 mg capsule,24 120 mg PO DAILY@11 10/04/22 11/12/22 hr,extended release lidocaine 5 % topical patch 1 patch topical DAILY 10/04/22 11/12/22 melatonin 3 mg tablet 3 mg PO BEDTIME PRN Insomnia 10/04/22 11/12/22 metoprolol succinate 25 mg 75 mg PO DAILY 10/04/22 11/12/22 tablet,extended release 24 hr nitroglycerin 0.4 mg sublingual 0.4 mg sublingual Q5M PRN Chest 10/04/22 11/12/22 tablet Pain nystatin 100,000 unit/gram topical 1 appl topical BID 10/04/22 11/12/22 powder ondansetron 4 mg disintegrating 4 mg PO Q6H PRN Nausea 10/04/22 11/12/22 tablet sennosides 8.6 mg tablet (senna) 8.6 mg PO DAILY 10/04/22 11/12/22 simethicone 80 mg tablet 80 mg PO TID PRN Indigestion 10/04/22 11/12/22 Mental Status Exam Mental Status Exam Patient Appearance: Fatigued and Appropriate Patient Orientation: Person, Place and Situation Level of Consciousness: Awake Patient Behavior: Appropriate Mood Description: Apprehensive Affect Description: Apprehensive Patient Cognition Impaired: No Ability to Follow Directions: Good Speech Pattern: Clear Memory Description: Intact Judgement and Insight: Patient anxious at time of transfer he had had a broader range of affect denied active SI he was complaining of ankle pain and wanting more adequate pain control he was future oriented and did want help and evaluation regarding chest pain and discomfort Data Data Completed and Pending Completed studies during hospitalization [Text1]: 11/06/22 11/06/22 11/06/22 06:35 06:35 06:35 WBC 6.0 RBC 3.40 L D Hgb 7.3 L D Hct 25.9 L D MCV 76.2 L MCH 21.5 L MCHC 28.2 L RDW 18.9 H Plt Count 288 MPV 10.2 Immature Gran % (Auto) 0.2 Neut % (Auto) 76.4 H Lymph % (Auto) 13.8 L Jenkins % (Auto) 7.1 Eos % (Auto) 2.2 Baso % (Auto) 0.3 Lymph # (Auto) 0.8 L Jenkins # (Auto) 0.4 Eos # (Auto) 0.1 Baso # (Auto) 0.0 Abs Immat Gran (auto) 0.01 Absolute Neuts (auto) 4.6 Absolute Nucleated RBC 0.000 Nucleated RBC % (auto) 0.0 Sodium 139 Potassium 2.8 L Chloride 98 Carbon Dioxide 33 H Anion Gap 11 L BUN 13 Creatinine 1.04 Estim Creat Clear Calc 116.0 Estimated GFR > 60 POC Glucose Random Glucose 241 H Calcium 8.1 L Troponin I High Sens Random Vancomycin Phenytoin 7.5 L* 11/06/22 11/06/22 11/06/22 07:39 11:00 11:02 WBC RBC Hgb Hct MCV MCH MCHC RDW Plt Count MPV Immature Gran % (Auto) Neut % (Auto) Lymph % (Auto) Jenkins % (Auto) Eos % (Auto) Baso % (Auto) Lymph # (Auto) Jenkins # (Auto) Eos # (Auto) Baso # (Auto) Abs Immat Gran (auto) Absolute Neuts (auto) Absolute Nucleated RBC Nucleated RBC % (auto) Sodium Potassium Chloride Carbon Dioxide Anion Gap BUN Creatinine Estim Creat Clear Calc Estimated GFR POC Glucose 211 H 173 H Random Glucose Calcium Troponin I High Sens Random Vancomycin 14.9 L Phenytoin 11/06/22 11/06/22 11/07/22 16:28 19:40 07:28 WBC RBC Hgb Hct MCV MCH MCHC RDW Plt Count MPV Immature Gran % (Auto) Neut % (Auto) Lymph % (Auto) Jenkins % (Auto) Eos % (Auto) Baso % (Auto) Lymph # (Auto) Jenkins # (Auto) Eos # (Auto) Baso # (Auto) Abs Immat Gran (auto) Absolute Neuts (auto) Absolute Nucleated RBC Nucleated RBC % (auto) Sodium Potassium Chloride Carbon Dioxide Anion Gap BUN Creatinine Estim Creat Clear Calc Estimated GFR POC Glucose 159 H 167 H 227 H Random Glucose Calcium Troponin I High Sens Random Vancomycin Phenytoin 11/07/22 11/07/22 11/07/22 10:50 10:50 11:08 WBC RBC Hgb Hct MCV MCH MCHC RDW Plt Count MPV Immature Gran % (Auto) Neut % (Auto) Lymph % (Auto) Jenkins % (Auto) Eos % (Auto) Baso % (Auto) Lymph # (Auto) Jenkins # (Auto) Eos # (Auto) Baso # (Auto) Abs Immat Gran (auto) Absolute Neuts (auto) Absolute Nucleated RBC Nucleated RBC % (auto) Sodium Potassium Chloride Carbon Dioxide Anion Gap BUN Creatinine 0.97 Estim Creat Clear Calc 124.3 Estimated GFR > 60 POC Glucose 163 H Random Glucose Calcium Troponin I High Sens Random Vancomycin 14.1 L Phenytoin 11/07/22 11/07/22 11/08/22 16:10 19:57 07:55 WBC RBC Hgb Hct MCV MCH MCHC RDW Plt Count MPV Immature Gran % (Auto) Neut % (Auto) Lymph % (Auto) Jenkins % (Auto) Eos % (Auto) Baso % (Auto) Lymph # (Auto) Jenkins # (Auto) Eos # (Auto) Baso # (Auto) Abs Immat Gran (auto) Absolute Neuts (auto) Absolute Nucleated RBC Nucleated RBC % (auto) Sodium Potassium Chloride Carbon Dioxide Anion Gap BUN Creatinine Estim Creat Clear Calc Estimated GFR POC Glucose 160 H 195 H 165 H Random Glucose Calcium Troponin I High Sens Random Vancomycin Phenytoin 11/08/22 11/08/22 11/08/22 08:45 11:46 12:16 WBC RBC Hgb Hct MCV MCH MCHC RDW Plt Count MPV Immature Gran % (Auto) Neut % (Auto) Lymph % (Auto) Jenkins % (Auto) Eos % (Auto) Baso % (Auto) Lymph # (Auto) Jenkins # (Auto) Eos # (Auto) Baso # (Auto) Abs Immat Gran (auto) Absolute Neuts (auto) Absolute Nucleated RBC Nucleated RBC % (auto) Sodium Potassium Chloride Carbon Dioxide Anion Gap BUN Creatinine 0.92 Estim Creat Clear Calc 131.1 Estimated GFR > 60 POC Glucose 185 H Random Glucose Calcium Troponin I High Sens Random Vancomycin 14.3 L Phenytoin 11/08/22 11/08/22 11/09/22 16:19 20:46 07:55 WBC RBC Hgb Hct MCV MCH MCHC RDW Plt Count MPV Immature Gran % (Auto) Neut % (Auto) Lymph % (Auto) Jenkins % (Auto) Eos % (Auto) Baso % (Auto) Lymph # (Auto) Jenkins # (Auto) Eos # (Auto) Baso # (Auto) Abs Immat Gran (auto) Absolute Neuts (auto) Absolute Nucleated RBC Nucleated RBC % (auto) Sodium Potassium Chloride Carbon Dioxide Anion Gap BUN Creatinine Estim Creat Clear Calc Estimated GFR POC Glucose 195 H 217 H 179 H Random Glucose Calcium Troponin I High Sens Random Vancomycin Phenytoin 11/09/22 11/09/22 11/09/22 08:05 11:15 11:16 WBC RBC Hgb Hct MCV MCH MCHC RDW Plt Count MPV Immature Gran % (Auto) Neut % (Auto) Lymph % (Auto) Jenkins % (Auto) Eos % (Auto) Baso % (Auto) Lymph # (Auto) Jenkins # (Auto) Eos # (Auto) Baso # (Auto) Abs Immat Gran (auto) Absolute Neuts (auto) Absolute Nucleated RBC Nucleated RBC % (auto) Sodium Potassium Chloride Carbon Dioxide Anion Gap BUN Creatinine 0.83 Estim Creat Clear Calc 145.3 Estimated GFR > 60 POC Glucose 195 H Random Glucose Calcium Troponin I High Sens Random Vancomycin 15.6 Phenytoin 11/09/22 11/09/22 11/10/22 16:41 19:56 07:43 WBC RBC Hgb Hct MCV MCH MCHC RDW Plt Count MPV Immature Gran % (Auto) Neut % (Auto) Lymph % (Auto) Jenkins % (Auto) Eos % (Auto) Baso % (Auto) Lymph # (Auto) Jenkins # (Auto) Eos # (Auto) Baso # (Auto) Abs Immat Gran (auto) Absolute Neuts (auto) Absolute Nucleated RBC Nucleated RBC % (auto) Sodium Potassium Chloride Carbon Dioxide Anion Gap BUN Creatinine Estim Creat Clear Calc Estimated GFR POC Glucose 167 H 182 H 193 H Random Glucose Calcium Troponin I High Sens Random Vancomycin Phenytoin 11/10/22 11/10/22 11/10/22 08:06 11:19 11:36 WBC RBC Hgb Hct MCV MCH MCHC RDW Plt Count MPV Immature Gran % (Auto) Neut % (Auto) Lymph % (Auto) Jenkins % (Auto) Eos % (Auto) Baso % (Auto) Lymph # (Auto) Jenkins # (Auto) Eos # (Auto) Baso # (Auto) Abs Immat Gran (auto) Absolute Neuts (auto) Absolute Nucleated RBC Nucleated RBC % (auto) Sodium Potassium Chloride Carbon Dioxide Anion Gap BUN Creatinine 1.05 Estim Creat Clear Calc 114.8 Estimated GFR > 60 POC Glucose 193 H Random Glucose Calcium Troponin I High Sens Random Vancomycin 16.4 Phenytoin 11/10/22 11/10/22 11/11/22 16:27 20:57 08:00 WBC RBC Hgb Hct MCV MCH MCHC RDW Plt Count MPV Immature Gran % (Auto) Neut % (Auto) Lymph % (Auto) Jenkins % (Auto) Eos % (Auto) Baso % (Auto) Lymph # (Auto) Jenkins # (Auto) Eos # (Auto) Baso # (Auto) Abs Immat Gran (auto) Absolute Neuts (auto) Absolute Nucleated RBC Nucleated RBC % (auto) Sodium Potassium Chloride Carbon Dioxide Anion Gap BUN Creatinine 0.95 Estim Creat Clear Calc 126.9 Estimated GFR > 60 POC Glucose 149 H 151 H Random Glucose Calcium Troponin I High Sens Random Vancomycin Phenytoin 11/11/22 11/11/22 11/11/22 08:03 11:34 11:57 WBC RBC Hgb Hct MCV MCH MCHC RDW Plt Count MPV Immature Gran % (Auto) Neut % (Auto) Lymph % (Auto) Jenkins % (Auto) Eos % (Auto) Baso % (Auto) Lymph # (Auto) Jenkins # (Auto) Eos # (Auto) Baso # (Auto) Abs Immat Gran (auto) Absolute Neuts (auto) Absolute Nucleated RBC Nucleated RBC % (auto) Sodium Potassium Chloride Carbon Dioxide Anion Gap BUN Creatinine Estim Creat Clear Calc Estimated GFR POC Glucose 170 H 165 H Random Glucose Calcium Troponin I High Sens Random Vancomycin 15.0 Phenytoin 11/11/22 11/11/22 11/12/22 16:38 20:14 07:56 WBC RBC Hgb Hct MCV MCH MCHC RDW Plt Count MPV Immature Gran % (Auto) Neut % (Auto) Lymph % (Auto) Jenkins % (Auto) Eos % (Auto) Baso % (Auto) Lymph # (Auto) Jenkins # (Auto) Eos # (Auto) Baso # (Auto) Abs Immat Gran (auto) Absolute Neuts (auto) Absolute Nucleated RBC Nucleated RBC % (auto) Sodium Potassium Chloride Carbon Dioxide Anion Gap BUN Creatinine 1.04 Estim Creat Clear Calc 116.0 Estimated GFR > 60 POC Glucose 143 H 197 H Random Glucose Calcium Troponin I High Sens Random Vancomycin Phenytoin 11/12/22 11/12/22 11/12/22 07:56 07:56 11:18 WBC 7.0 RBC 3.35 L Hgb 7.2 L Hct 25.6 L MCV 76.4 L MCH 21.5 L MCHC 28.1 L RDW 19.3 H Plt Count 275 MPV 10.1 Immature Gran % (Auto) 0.4 Neut % (Auto) 80.6 H Lymph % (Auto) 11.0 L Jenkins % (Auto) 6.7 Eos % (Auto) 1.0 Baso % (Auto) 0.3 Lymph # (Auto) 0.8 L Jenkins # (Auto) 0.5 Eos # (Auto) 0.1 Baso # (Auto) 0.0 Abs Immat Gran (auto) 0.03 Absolute Neuts (auto) 5.6 Absolute Nucleated RBC 0.000 Nucleated RBC % (auto) 0.0 Sodium 139 Potassium 3.7 D Chloride 98 Carbon Dioxide 32 H Anion Gap 13 BUN 14 Creatinine 1.08 Estim Creat Clear Calc 111.7 Estimated GFR > 60 POC Glucose Random Glucose 171 H Calcium 8.4 Troponin I High Sens Random Vancomycin 16.4 Phenytoin 11/12/22 11/12/22 11:37 16:31 WBC RBC Hgb Hct MCV MCH MCHC RDW Plt Count MPV Immature Gran % (Auto) Neut % (Auto) Lymph % (Auto) Jenkins % (Auto) Eos % (Auto) Baso % (Auto) Lymph # (Auto) Jenkins # (Auto) Eos # (Auto) Baso # (Auto) Abs Immat Gran (auto) Absolute Neuts (auto) Absolute Nucleated RBC Nucleated RBC % (auto) Sodium Potassium Chloride Carbon Dioxide Anion Gap BUN Creatinine Estim Creat Clear Calc Estimated GFR POC Glucose 194 H Random Glucose Calcium Troponin I High Sens 24.1 Random Vancomycin Phenytoin 11/01/22 10:30 Urine clean catch - Urine drew top Urine Culture - Final No growth. 10/11/22 20:08 Blood - Venous Blood Culture - Final No growth after 5 days. 10/11/22 20:08 Blood - Venous Blood Culture - Final No growth after 5 days. Imaging Diagnostic Imaging Impressions Hand/Wrist X-Ray 10/07/22 22:07 IMPRESSION: Old healed fracture of the distal shaft of the fifth metacarpal bone and question old or healing fracture of the neck of the fourth metacarpal bone. No acute fracture. Foot X-Ray 10/11/22 12:56 IMPRESSION: RIGHT FOOT: Soft tissue ulceration at the distal aspect of the right great toe. Erosion/lucency through the distal tuft of the 1st distal phalanx, likely indicating osteomyelitis. LEFT FOOT: 1. Soft tissue ulceration along the distal/medial aspect of the great toe with circumferential soft tissue swelling. No radiopaque foreign body. No adjacent cortical erosion or periosteal reaction to suggest acute osteomyelitis, however, this may be occult on plain radiographs. 2. Severe osteoarthritis with prominent bony remodeling throughout the tibiotalar and midfoot joints, similar when compared to the prior radiographs from 2016. Foot X-Ray 10/11/22 12:56 IMPRESSION: RIGHT FOOT: Soft tissue ulceration at the distal aspect of the right great toe. Erosion/lucency through the distal tuft of the 1st distal phalanx, likely indicating osteomyelitis. LEFT FOOT: 1. Soft tissue ulceration along the distal/medial aspect of the great toe with circumferential soft tissue swelling. No radiopaque foreign body. No adjacent cortical erosion or periosteal reaction to suggest acute osteomyelitis, however, this may be occult on plain radiographs. 2. Severe osteoarthritis with prominent bony remodeling throughout the tibiotalar and midfoot joints, similar when compared to the prior radiographs from 2016. Duplex Scan Lower Extremity Artery 10/13/22 19:25 IMPRESSION: 1. No hemodynamically significant stenosis in the right lower extremity. 2. Incidental note is made of cardiac arrhythmia. Chest X-Ray 10/15/22 13:39 IMPRESSION: Right upper extremity PICC line tip projects over SVC. 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 According to the crisis assessment, the patient was initially admitted in June at [facility] for COVID, and later on while he was at home he fell and he was rushed to the emergency room [facility]. According to him he stayed in his apartment asking for help for hours. While he was on the emergency room, he was hypotensive and he needed to be admitted into the medical surgical unit of [facility]. He stated in the medical unit for several weeks, he had several medical comorbidities such as morbid obesity, diabetes, status post SC, CAD, sleep apnea, chronic pain and depression. While they were preparing for discharge planning the patient reported exacerbation of depression with suicidal ideation. He was assessed by the psychiatric team and crisis and they decided to look for inpatient level of care. On interview, the patient reported a long history of depression in the past, he tried Wellbutrin that cause him seizures. He stated that currently he does not have any psychiatric providers. He complained of depressed mood, anhedonia, lack of energy, feelings of hopelessness and worthlessness and recently suicidal ideation without clear plan to kill himself by either choking himself or overdosing on his several medications. He was able to contract for safety in the facility. He adamantly denies hallucinations or delusions, no prior history of psychosis. We discussed at length risks, benefits, side-effects and alternatives and he agreed on the plan below. He is fully aware of the rivera warning and he is willing to continue treatment in this facility. He stated that he has lost more than 200 lb in the last months due to his medical complications in the last weeks Past Psychiatric History: He was diagnosed of depression several years ago he tried Wellbutrin with seizures. He denies prior psychiatric admissions Medical Evaluation Reviewed: Hospitalist Teresa Pending [facility] Medical History Anxiety Arthritis Asthma Atrial fibrillation with rapid ventricular response Coronary artery disease Diabetes mellitus, type 2 Fall Hypertension Multifactorial gait disorder Obesity PTSD (post-traumatic stress disorder) TIA (transient ischemic attack) Transient ischemic attack (TIA) Weakness Family History: Denies Social History: The patient is the oldest of 6 children, his milestones were achieved at expected age, he was raised by his parents. He attended regular school, graduated have 1 year of college. 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 He was he has 2 children 1 of his sons and the other was 22 is not involved in his care. He lives alone in an apartment. Substance History: He reported that he has tried drugs in the past such as wearing 1, came and LSD. He denies prior treatment for substance abuse. He denies legal encounters due to substance abuse Trauma History: Denies Diagnostics Vital Signs (24Hr): Vital Signs - 24 hr 10/04/22 19:00 10/05/22 08:15 Temperature 98 F 97.3 F Pulse Rate 119 H Respiratory Rate 18 18 Blood Pressure 118/85 113/76 Pulse Oximetry 97 97 Oxygen Delivery Method Room Air Room Air BMI result Body Mass Index 39.4 Labs 10/05/22 07:34 document embedded image Labs: Laboratory Results - last 48 hr 10/04/22 10/05/22 10/05/22 22:20 07:34 08:05 Sodium 140 Potassium 4.9 D Chloride 99 Carbon Dioxide 29 Anion Gap 17 BUN 22 H Creatinine 0.93 Estim Creat Clear Calc 122.4 Estimated GFR > 60 POC Glucose 160 H 150 H Fasting Glucose 150 H Calcium 9.6 D Total Bilirubin 0.5 AST 11 ALT 14 Alkaline Phosphatase 114 Total Protein 7.2 Albumin 4.0 Triglycerides 107 Cholesterol 134 LDL Cholesterol, Calc 66 HDL Cholesterol 47 Meds/Allergies Meds Home Medications Medication Instructions Recorded Confirmed Type apixaban 5 mg tablet (Eliquis) 1 tab PO BID 07/08/22 10/04/22 History hydroxyzine HCl 25 mg tablet 1 tab PO TID PRN Anxiety 07/08/22 10/04/22 History lorazepam 2 mg tablet 1 tab PO TID PRN Anxiety 07/08/22 10/04/22 History metformin 1,000 mg tablet 1 tab PO DAILY 07/08/22 10/04/22 History oxycodone 5 mg tablet 1 tab PO TID PRN Pain 07/08/22 10/04/22 History pantoprazole 40 mg tablet,delayed 1 tab PO DAILY@0630 07/08/22 10/04/22 History release phenytoin sodium extended 100 mg 200 mg PO DAILY 07/08/22 10/04/22 History capsule trazodone 50 mg tablet 1 tab PO BEDTIME 07/08/22 10/04/22 History acetaminophen 500 mg tablet 1,000 mg PO BID PRN Pain 07/09/22 10/04/22 History albuterol sulfate 90 mcg/actuation 2 puff inhalation Q4-6H PRN 07/09/22 10/04/22 History aerosol inhaler (ProAir HFA) Shortness Of Breath atorvastatin 80 mg tablet 1 tab PO DAILY 07/09/22 10/04/22 History digoxin 125 mcg (0.125 mg) tablet 1 tab PO Q2D 07/09/22 07/28/22 History duloxetine 30 mg capsule,delayed 30 mg PO DAILY 07/09/22 07/28/22 History release duloxetine 30 mg capsule,delayed 60 mg PO BID 07/09/22 10/04/22 History release fluticasone propionate 50 1 spray intranasal BID 07/09/22 10/04/22 History mcg/actuation nasal spray,suspension gabapentin 400 mg capsule 1 cap PO 5XD 07/09/22 10/04/22 History insulin glargine 100 unit/mL (3 20 unit subcut BEDTIME 07/09/22 07/28/22 History mL) subcutaneous pen (Lantus Solostar U-100 Insulin) insulin lispro 100 unit/mL 2 - 10 unit subcut TIDAC 07/09/22 10/04/22 History subcutaneous pen phenytoin sodium extended 100 mg 400 mg PO BEDTIME 07/09/22 10/04/22 History capsule quetiapine 100 mg tablet 1 tab PO BEDTIME PRN Insomnia 07/09/22 10/04/22 History quetiapine 200 mg tablet 1 tab PO BID 07/09/22 10/04/22 History torsemide 20 mg tablet 1 tab PO DAILY 07/09/22 10/04/22 History empagliflozin 10 mg tablet 10 mg PO DAILY 07/30/22 07/30/22 History (Jardiance) ferrous sulfate 324 mg (65 mg 324 mg PO DIRECTED 07/30/22 10/04/22 History iron) tablet,delayed release aripiprazole 5 mg tablet 7.5 mg PO DAILY 10/04/22 10/04/22 History calamine See Rx Instructions .Route .COMPLEX 10/04/22 10/04/22 History diltiazem HCl 120 mg capsule,24 120 mg PO DAILY@11 10/04/22 10/04/22 History hr,extended release lidocaine 5 % topical patch 1 patch topical DAILY 10/04/22 10/04/22 History melatonin 3 mg tablet 3 mg PO BEDTIME PRN Insomnia 10/04/22 10/04/22 History metoprolol succinate 25 mg 75 mg PO DAILY 10/04/22 10/04/22 History tablet,extended release 24 hr nitroglycerin 0.4 mg sublingual 0.4 mg sublingual Q5M PRN Chest 10/04/22 10/04/22 History tablet Pain nystatin 100,000 unit/gram topical 1 appl topical BID 10/04/22 10/04/22 History powder ondansetron 4 mg disintegrating 4 mg PO Q6H PRN Nausea 10/04/22 10/04/22 History tablet sennosides 8.6 mg tablet (senna) 8.6 mg PO DAILY 10/04/22 10/04/22 History simethicone 80 mg tablet 80 mg PO TID PRN Indigestion 10/04/22 10/04/22 History Allergies Allergies Allergy/AdvReac Type Severity Reaction Status Date / Time aspirin Allergy Severe OCCASIONAL Verified 04/08/22 14:18 RASH / TONGUE SWELLING, Hives, throat swellig bee pollen [BEE STINGS] Allergy Severe ANAPHYLAXIS Verified 04/08/22 14:18 Penicillins Allergy Severe ANAPHYLAXIS Verified 04/08/22 14:18 povidone-iodine [Betadine] Allergy Severe Redness of Verified 04/08/22 14:18 Skin soap [Betadine] Allergy Severe Redness of Verified 04/08/22 14:18 Skin spider venom [SPIDER BITES] Allergy Severe Hives Verified 04/08/22 14:18 amoxicillin Allergy Intermediate Hives Verified 04/08/22 14:18 clindamycin Allergy Mild RASH Verified 04/08/22 14:18 latex [Latex] Allergy Mild RASH Verified 04/08/22 14:18 shrimp Allergy Hives Verified 06/21/22 11:48 bupropion [From WELLBUTRIN] AdvReac Severe SEIZURES Verified 04/08/22 14:18 adhesive tape AdvReac Mild Rash Verified 04/14/22 15:55 Mental Status Exam Mental Status Exam Patient Appearance: Appropriate Patient Orientation: Person and Situation Level of Consciousness: Awake and Appropriate Patient Behavior: Guarded and Passive Mood Description: Calm and Constricted Affect Description: Depressed Patient Cognition Impaired: No Ability to Follow Directions: Good Speech Pattern: Clear Hallucinations: None Delusions: Not Present Thought Process: Linear and Evasive Thought Content: positive for [place] and positive for Circumstantial Judgement: Fair Assessment & Plan Assessment & Plan (1) Major depressive disorder: Status: Acute Code(s): F32.9 - Major depressive disorder, single episode, unspecified Plan The patient is a middle-aged male, morbidly obese with several medical comorbidities such as high blood pressure diabetes hypercholesterolemia morbid obesity, status post SC, CAD and depression initially admitted medically to [facility] and later on he verbalized exacerbation of depression with suicidal ideation. Plan 1. Gather collateral information. 2. Continue 15 minute checks, the patient is able to contract for safety. 3. Continue with medical workout. 4. Continue antidepressants Cymbalta 60 mg po bid, consider increase up to 90 mg po bid 5. PT consult Patient educated on: diagnosis Reason for continued inpatient stay Substantial Risk for: inability to function, rapid decompensation and med/psych decompensation Statement Statement: I have reviewed the history and physical and performed a pertinent examination on my patient. No changes have occurred unless specified. If the History and Physical was not performed prior to admission, the Hospitalist's service will be consulted for completing the admission physical. Hospital course See above for psychiatric admission note the patient was admitted on 10/05/2022 to the psychiatric unit history of osteomyelitis deconditioning history of seizure disorder recurrent depression with suicidal thoughts. Patient was wheelchair bound quite deconditioned with patient was depressed ruminating thoughts of self-harm on admission he was treated for osteomyelitis was also noted to have a AFib arrhythmia he was on Eliquis 5 b.i.d. initially and vanco later changed to p.o. treatment. He did get a wound care consult and was eventually also treated with phenytoin for reported seizure disorder. Patient could be irritable and dysphoric complained of pain in his ankles. The patient had been on narcotics previously. He was continued on Cymbalta 60 twice a day Diltiazem and metoprolol for atrial fibrillation rate control torsemide Seroquel for anxiety depressive symptoms. The patient reportedly had lost his apartment prior to discharge but the patient stated that his son had come back from [place] and had no off the apartment rent he was looking to go back at least transition Ali to his apartment and there had been an appointment set up for the pace program. Patient seemed with an improved mood when seen on the day discharge he did complain ankle pain and was looking to go back oxycodone to some degree. The patient did have some sub sternal chest pain in the afternoon 11/12/2022 a rapid response was called EKG was unremarkable patient did have radiating substernal chest pain Initially he did seem to suffer from mild hypoxia. He was seen by Dr. Del Toro and transferred to the medical floor for further workup question CHF monitor rhythm it was noted that the patient had had negative coronary angiogram at [facility] in late 2021. Patient was future oriented at time of discharge anxious about chest discomfort and shortness of breath he was transferred to telemetry case was extensively discussed with the hospitalist service re-evaluate for psych return transfer from Medicine Status at Discharge Functional status at discharge: wheelchair bound Time Spent with Patient Time attestation: Total time managing care of this patient today _60___ minutes. Time spent: Greater than 30 minutes Specific discharge activities: Participate in rapid response medical of evaluation discussion with patient hospitalist service regarding transfer Discharge Plan Discharge Anticipated Discharge Date/Time: 11/12/22 18:00 Patient Disposition: Xfer [facility] Discharge Diagnosis: a fib r/o coronary syndrome recurrent depression ptsd Referrals: Brown Parada MD [Primary Care Provider] - 1 Week Discharge Medications: No Action trazodone 50 mg tablet 1 tab PO BEDTIME phenytoin sodium extended 100 mg capsule 200 mg PO DAILY lorazepam 2 mg tablet 1 tab PO TID PRN (Reason: Anxiety) pantoprazole 40 mg tablet,delayed release (DR/EC) 1 tab PO DAILY@0630 metformin 1,000 mg tablet 1 tab PO DAILY hydroxyzine HCl 25 mg tablet 1 tab PO TID PRN (Reason: Anxiety) oxycodone 5 mg tablet 1 tab PO TID PRN (Reason: Pain) Eliquis 5 mg tablet 1 tab PO BID atorvastatin 80 mg tablet 1 tab PO DAILY torsemide 20 mg tablet 1 tab PO DAILY gabapentin 400 mg capsule 1 cap PO 5XD phenytoin sodium extended 100 mg capsule 400 mg PO BEDTIME quetiapine 100 mg tablet 1 tab PO BEDTIME PRN (Reason: Insomnia) acetaminophen 500 mg Tablet 1,000 mg PO BID PRN (Reason: Pain) albuterol sulfate [ProAir HFA] 90 mcg/actuation Hfa Aerosol Inhaler 2 puff INHALATION Q4-6H PRN (Reason: Shortness Of Breath) fluticasone propionate 50 mcg/actuation [place],Suspension 1 spray INTRANASAL BID Rx Instructions: administer into each nostril insulin lispro 100 unit/mL insulin pen 2 - 10 unit subcut TIDAC duloxetine 30 mg capsule,delayed release(DR/EC) 60 mg PO BID quetiapine 200 mg tablet 1 tab PO BID ferrous sulfate 324 mg (65 mg iron) Tablet,Delayed Release (Dr/Ec) 324 mg PO DIRECTED Rx Instructions: take 1 tab every Tuesday, Tuesday, Tuesday sennosides [senna] 8.6 mg Tablet 8.6 mg PO DAILY melatonin 3 mg Tablet 3 mg PO BEDTIME PRN (Reason: Insomnia) diltiazem HCl 120 mg Capsule,Extended Release 24 Hr 120 mg PO DAILY@11 lidocaine 5 % Adhesive Patch,Medicated 1 patch TOPICAL DAILY Rx Instructions: leave on most painful area for up to 12 hrs nitroglycerin 0.4 mg Tablet, Sublingual 0.4 mg SUBLINGUAL Q5M PRN (Reason: Chest Pain) Rx Instructions: do not exceed 3 doses per episode nystatin 100,000 unit/gram Powder 1 appl TOPICAL BID ondansetron 4 mg Tablet,Disintegrating 4 mg PO Q6H PRN (Reason: Nausea) calamine Lotion See Rx Instructions .ROUTE .COMPLEX Rx Instructions: Apply to affected area topically, 2 times daily aripiprazole 5 mg Tablet 7.5 mg PO DAILY simethicone 80 mg Tablet 80 mg PO TID PRN (Reason: Indigestion) metoprolol succinate 25 mg tablet extended release 24 hr 75 mg PO DAILY Protocol: Hold for SBP/HR < HOLD for SBP < : 90 HOLD for HR < : 60 Discharge Orders: Discharge Order (Routine); Ordered 11/12/22 Ordered By: Alexandro Patel Activity on Discharge: im transfer Stand Alone Forms: Patient Portal Discharge page, Community Support Care Plan Goals: transfer [facility] chest discomfort medical stabilization revaluation for psych when medically stable Health Concerns: depression chf afib si Plan of Treatment: transfer [facility] Assessment: pt with sob chest pain afib transfer im Discharge Date/Time: 11/12/22 17:09
== END 2022-11-12 17:09 | disposition short-term general hospital (02) | DRG 754 ==
PROVIDERS: Family Medicine; Internal Medicine; Physician Assistant; Physician Assistant Medical; Psychiatry & Neurology Psychiatry; Student in an Organized Health Care Education/Training Program; Admitting Provider Psychiatry & Neurology Psychiatry; PCP Family Medicine; Visit Provider Psychiatry & Neurology Psychiatry
PROC: 02HV33Z Insertion of Infusion Device into Superior Vena Cava, Percutaneous Approach (ICD-10-PCS; principal; 2022-10-15 13:00)
DX: F32.9 Major depressive disorder, single episode, unspecified (principal); J96.11 Chronic respiratory failure with hypoxia; R45.851 Suicidal ideations; E11.621 Type 2 diabetes mellitus with foot ulcer; L97.529 Non-pressure chronic ulcer of other part of left foot with unspecified severity; M86.9 Osteomyelitis, unspecified; G40.909 Epilepsy, unspecified, not intractable, without status epilepticus; D50.9 Iron deficiency anemia, unspecified; E11.69 Type 2 diabetes mellitus with other specified complication; I48.0 Paroxysmal atrial fibrillation; E66.01 Morbid (severe) obesity due to excess calories; F43.10 Post-traumatic stress disorder, unspecified; I25.10 Atherosclerotic heart disease of native coronary artery without angina pectoris; Z68.41 Body mass index [BMI] 40.0-44.9, adult; I25.2 Old myocardial infarction; G89.29 Other chronic pain; I10 Essential (primary) hypertension; E78.00 Pure hypercholesterolemia, unspecified; J45.20 Mild intermittent asthma, uncomplicated; Z91.040 Latex allergy status; Z99.81 Dependence on supplemental oxygen; Z86.73 Personal history of transient ischemic attack (TIA), and cerebral infarction without residual deficits; Z88.0 Allergy status to penicillin; Z88.1 Allergy status to other antibiotic agents; Z88.6 Allergy status to analgesic agent; Z79.4 Long term (current) use of insulin; Z79.01 Long term (current) use of anticoagulants; Z79.84 Long term (current) use of oral hypoglycemic drugs; Z79.899 Other long term (current) drug therapy
CPT/HCPCS: 36415; 36573; 71045; 73110; 73130; 73620; 80048; 80053; 80061; 80185; 80202; 81001; 82565; 82803; 82947; 84484; 85025; 85027; 85652; 86140; 87040; 87086; 92526; 92610; 92950; 93005; 93926; 94660; 97110; 97116; 97162; 97166; 97530; C1751; J3370

== ENCOUNTER 2022-11-12 16:13 | Inpatient (IN) | payer OTHER, SELFPAY ==
--- NOTE | ~2022-11-12 | XR_ITS ---
EXAMINATION: XR CHEST CLINICAL INFORMATION: Follow-up CHF COMPARISON: Previous chest x-ray 11/12/2022 TECHNIQUE: Frontal view of the chest was obtained. FINDINGS: The cardiac silhouette is enlarged but stable. There is a right upper extremity PICC line with tip projecting over the SVC. There is increasing volume loss to the right hemithorax with elevation of the right hemidiaphragm. There is increasing right lung atelectasis/consolidation and small effusion. The left lung is clear. No pleural effusion or pneumothorax. No acute bone abnormality. XR/XR chest 1V IMPRESSION: Increasing volume loss to the right hemithorax, atelectasis/consolidation of the right lung and small right pleural effusion. Follow-up chest x-ray following respiratory treatment recommended. Findings will be communicated by the [place] work flow business process representative.
--- NOTE | ~2022-11-12 | XR_ITS ---
EXAMINATION: XR CHEST CLINICAL INFORMATION: Follow-up right lower lobe atelectasis COMPARISON: AP portable chest 11/20/2022 TECHNIQUE: Portable AP semiupright view of the chest was obtained. 1423 hours FINDINGS: The patient is tilted to the right. The left lung is well expanded and clear clear. There is persistent mild elevation the right hemidiaphragm. Partial interval improvement in opacity in the right lower lobe. Cardiomediastinal silhouette is unchanged. No gross bony abnormality. XR/XR chest 1V IMPRESSION: Partial interval improvement in right lower lobe opacity.
--- NOTE | ~2022-11-12 | XR_ITS ---
EXAMINATION: XR CHEST CLINICAL INFORMATION: Follow-up atelectasis. COMPARISON: 11/19/2022 chest x-ray. TECHNIQUE: Frontal view of the chest was obtained. FINDINGS: The left lung is well-expanded and clear. The right lung is hypoexpanded elevated right hemidiaphragm and likely right lower lobe atelectasis. The heart size and perivascular is normal. No gross bony abnormality seen. XR/XR chest 1V IMPRESSION: 1. Hypoexpanded right lung with elevated right hemidiaphragm and right lower lobe atelectasis. 2. The left lung is clear.
--- NOTE | ~2022-11-12 | XR_ITS ---
EXAMINATION: XR CHEST CLINICAL INFORMATION: Shortness of breath COMPARISON: Previous chest x-ray most recent October 2022 TECHNIQUE: Frontal view of the chest was obtained. FINDINGS: The cardiac and mediastinal contours are stable. The lungs are clear. No pleural effusion or pneumothorax. Right upper extremity PICC line with tip projecting over the SVC. Degenerative changes of the spine. XR/XR chest 1V IMPRESSION: No evidence for acute disease in the chest.
--- NOTE | 2022-11-12 16:19 | PM.IMHP ---
History of Present Illness Date of Service: 11/12/22 Chief Complaint: chest pain, sob 62M PMH paroxysmal afib, severe depression, chronic pain on opiates, morbid obesity, DM, chronic diastolic chf, gerd, moderate persistent asthma, epilepsy, HTN, history of CVA, presented with chest pain. Patient was in inpatient [facility] for suicidal ideation. Rapid response was called for complaints of chest pressure and shortness of breath. Patient states that chest pain is 10 out 10, midsternal, pressure, radiating to left arm, similar to previous and since as though more extreme. Associated with shortness of breath, denies coronary history. Was given nitro sublingual with slight decrease in pain to 8/10. EKG showed AFib with RVR, right bundle anthony block, no obvious acute ischemic changes. Review of Systems Review of Systems: Yes all other systems are reviewed and are negative [facility] Medical History Anxiety Arthritis Asthma Atrial fibrillation Atrial fibrillation with rapid ventricular response Bladder outlet obstruction Chronic back pain Coronary artery disease Diabetes mellitus, type 2 Fall Hypertension Multifactorial gait disorder Obesity Osteomyelitis of foot PTSD (post-traumatic stress disorder) TIA (transient ischemic attack) Transient ischemic attack (TIA) Weakness Social History Household Members: None Housing: Apartment Do you presently have visiting nurse or other home services: Yes Alcohol intake: never Patient Tobacco Use Status: Never used Tobacco e-Cigarette/Vaping Use: Never Used Second Hand Smoke Exposure: No Advance Directives: Yes Advance Directives on File: Yes Advance Directives Date on File: 07/27/22 service: No Current occupational status: disabled Sexual orientation: Straight/Heterosexual Meds Allergies Allergy/AdvReac Type Severity Reaction Status Date / Time aspirin Allergy Severe Ocassional Verified 11/09/22 08:53 rash, Hives, throat and tongue swelling bee pollen [BEE STINGS] Allergy Severe Anaphylaxis Verified 11/09/22 08:53 Penicillins Allergy Severe Anaphylaxis Verified 11/09/22 08:53 povidone-iodine [Betadine] Allergy Severe Redness of Verified 04/08/22 14:18 Skin soap [Betadine] Allergy Severe Redness of Verified 04/08/22 14:18 Skin spider venom [SPIDER BITES] Allergy Severe Hives Verified 04/08/22 14:18 amoxicillin Allergy Intermediate Hives Verified 04/08/22 14:18 adhesive tape Allergy Mild Rash Verified 11/09/22 08:53 clindamycin Allergy Mild Rash Verified 11/09/22 08:53 latex [Latex] Allergy Mild Rash Verified 11/09/22 08:53 shrimp Allergy Hives Verified 06/21/22 11:48 bupropion [From WELLBUTRIN] AdvReac Severe Seizure Verified 11/09/22 08:53 Active Medications: Current Medications Furosemide (Furosemide 40 Mg/4 Ml Vial) 40 mg IVPUSH BID@0900,1800 [facility]; Protocol Sodium Chloride (0.9 % Sodium Chloride Flush 3 Ml Syringe) 3 ml IVFLUSH QSHIFT [facility] Home Medications Medication Instructions Recorded Confirmed Last Taken Type apixaban 5 mg tablet (Eliquis) 1 tab PO BID 07/08/22 10/04/22 Unknown History hydroxyzine HCl 25 mg tablet 1 tab PO TID PRN Anxiety 07/08/22 10/04/22 Unknown History lorazepam 2 mg tablet 1 tab PO TID PRN Anxiety 07/08/22 10/04/22 Unknown History metformin 1,000 mg tablet 1 tab PO DAILY 07/08/22 10/04/22 Unknown History oxycodone 5 mg tablet 1 tab PO TID PRN Pain 07/08/22 10/04/22 Unknown History pantoprazole 40 mg tablet,delayed 1 tab PO DAILY@0630 07/08/22 10/04/22 Unknown History release phenytoin sodium extended 100 mg 200 mg PO DAILY 07/08/22 10/04/22 Unknown History capsule trazodone 50 mg tablet 1 tab PO BEDTIME 07/08/22 10/04/22 Unknown History acetaminophen 500 mg tablet 1,000 mg PO BID PRN Pain 07/09/22 10/04/22 Unknown History albuterol sulfate 90 mcg/actuation 2 puff inhalation Q4-6H PRN 07/09/22 10/04/22 Unknown History aerosol inhaler (ProAir HFA) Shortness Of Breath atorvastatin 80 mg tablet 1 tab PO DAILY 07/09/22 10/04/22 Unknown History duloxetine 30 mg capsule,delayed 60 mg PO BID 07/09/22 10/04/22 Unknown History release fluticasone propionate 50 1 spray intranasal BID 07/09/22 10/04/22 Unknown History mcg/actuation nasal spray,suspension gabapentin 400 mg capsule 1 cap PO 5XD 07/09/22 10/04/22 Unknown History insulin lispro 100 unit/mL 2 - 10 unit subcut TIDAC 07/09/22 10/04/22 Unknown History subcutaneous pen phenytoin sodium extended 100 mg 400 mg PO BEDTIME 07/09/22 10/04/22 Unknown History capsule quetiapine 100 mg tablet 1 tab PO BEDTIME PRN Insomnia 07/09/22 10/04/22 Unknown History quetiapine 200 mg tablet 1 tab PO BID 07/09/22 10/04/22 Unknown History torsemide 20 mg tablet 1 tab PO DAILY 07/09/22 10/04/22 Unknown History ferrous sulfate 324 mg (65 mg 324 mg PO DIRECTED 07/30/22 10/04/22 Unknown History iron) tablet,delayed release aripiprazole 5 mg tablet 7.5 mg PO DAILY 10/04/22 10/04/22 Unknown History calamine See Rx Instructions .Route .COMPLEX 10/04/22 10/04/22 Unknown History diltiazem HCl 120 mg capsule,24 120 mg PO DAILY@11 10/04/22 10/04/22 Unknown History hr,extended release lidocaine 5 % topical patch 1 patch topical DAILY 10/04/22 10/04/22 Unknown History melatonin 3 mg tablet 3 mg PO BEDTIME PRN Insomnia 10/04/22 10/04/22 Unknown History metoprolol succinate 25 mg 75 mg PO DAILY 10/04/22 10/04/22 Unknown History tablet,extended release 24 hr nitroglycerin 0.4 mg sublingual 0.4 mg sublingual Q5M PRN Chest 10/04/22 10/04/22 Unknown History tablet Pain nystatin 100,000 unit/gram topical 1 appl topical BID 10/04/22 10/04/22 Unknown History powder ondansetron 4 mg disintegrating 4 mg PO Q6H PRN Nausea 10/04/22 10/04/22 Unknown History tablet sennosides 8.6 mg tablet (senna) 8.6 mg PO DAILY 10/04/22 10/04/22 Unknown History simethicone 80 mg tablet 80 mg PO TID PRN Indigestion 10/04/22 10/04/22 Unknown History Assessment and Plan (1) Seizure disorder: Status: Acute Plan 62M PMH paroxysmal afib, severe depression, morbid obesity, DM, chronic diastolic chf, gerd, moderate persistent asthma, epilepsy, HTN, history of CVA, presented with chest pain. Chest pain Rule out acute coronary syndrome, on Eliquis and statin, and beta-deysi, Check troponins Will transfer to [facility] Cardio eval Shortness of breath due to acute on chronic diastolic CHF IV Lasix Check cxr Morbid obesity Weight loss recommended Paroxysmal atrial fibrillation with rapid ventricular response Continue metoprolol, Eliquis, diltiazem Diabetes Insulin, monitor point of care GERD PPI Moderate persistent asthma No acute exacerbation, bronchodilators as needed Mood disorder with suicidal ideation Continue Cymbalta, Abilify osteomyelitis of right distal 1st phalanx unclear chronicity Continue IV vancomycin until November 21, 2022, then start p.o. doxy Anemia Chronic, multifactorial Due to infection/inflammation, iron deficiency Monitor DVT prophylaxis on Eliquis Full code Patient with significant CHF requiring IV diuresis unlikely to require least 2 midnights inpatient to achieve euvolemia Time Spent With Patient Time: Total time managing care of this patient today ____ minutes. Quality Stroke Does the patient have a stroke diagnosis?: No VTE Prior VTE?: No VTE Risk Level:: Medical - moderate - high VTE Device Contraindication: Treatment Not Indicated VTE Drug Contraindication: N/A - Med Ordered
--- NOTE | 2022-11-12 17:17 | PHA.MEDREC ---
Pharmacy Consult ? Medication Reconciliation Pharmacy has completed the medication reconciliation. Patient had a med rec already done, patient was transferred from [facility].
--- OUTSIDE RECORDS SUMMARY | 2022-11-12 17:20 | XMS_ITS | Continuity of Care Document ---
Author Name Unknown Organization [facility] Address [address] [place] [address]- Care Team Providers Care Compensation Business Partner Name Role Phone Sanaz WILKINS, Matheus Castro Primary Care Physician [phone] Encounter [facility] Date(s): 05/22/19 - 06/01/19 [facility] Adult [address] [place] [address]- [facility] Attending Physician: Raji Shoemaker Admitting Physician: AdmtrRaji Referring Physician: AdmtrRaji Allergies, Adverse Reactions, Alerts Substance Reaction Severity Status clindamycin Hives Active penicillin rash Active aspirin Active Bee Stings Active Contrast Dye urticaria Active Latex anaphylaxis Active antivenin (black spider) Active Immunizations Given and Recorded Vaccine Date Status Refusal Reason influenza virus vaccine, inactivated 1 05/15/18 Gi kyle tetanus/diphtheria/pertussis, acel(Tdap) 05/07/09 Given 1Result Comment: [05/15/2018] [id number] Medications amLODIPine 5 mg oral tablet 5 [...] 01/29/19 17:13:14 EDT, Route to Pharmacy Electronically, [id number], [id number] Start Date: [...] Gm, 0 Refills, Maintenance, 05/23/18 10:06:41 EST, [place], 1 sprays Nares, Both 2 times a [...] 12/28/18 15:10:14 EDT, Route to Pharmacy Electronically, [id number], [id number] Start Date: 12/28/18 Status: Ordered lidocaine 5% topical film APPLY ONE PATCH TO THE KNEE AND APPLY ONE PATCH TO THE LOWER BACK DAILY UTD. Start Date: 06/01/18 Status: Ordered lisinopril 40 mg oral tablet See Instructions, # 30 tablet, Refills 5 Tot. Refills 5, TAKE 1 TABLET BY MOUTH EVERY MORNING, [facility] #[id number] Start Date: 01/02/19 Status: Ordered LORazepam 2 [...] 12/28/18 15:03:05 EDT, Route to Pharmacy Electronically, [id number], [id number] Start Date: 12/28/18 Status: Ordered traZODone 50 [...]
--- OUTSIDE RECORDS SUMMARY | 2022-11-12 17:21 | XMS_ITS | Continuity of Care Document ---
Author Name Unknown Organization [facility] ter Address [address] [place] [id number] Care Team Providers Care Pc Tech Name Role Phone Tal WILKINS, Brown Paz Primary Care Physician [phone] [facility] Date(s): 08/15/22 - 10/04/[address] [id number] Discharge Disposition: Transfer to [facility] Facility Attending Physician: Elly Tatum MD Admitting Physician: Pancho Wheat MD Referring Physician: Not on Staff, Referring [...] Reason: Med Not Available 2Result Comment: [05/15/2018] [id number] 3Result Comment: [id number] 4Result Comment: [id number] Medications Abilify 5 mg oral tablet 7.5 mg, 1.5, tablet, By Mouth, Daily in AM, # 45 tablet, Refills 0, Tot. Refills 0, Maintenance, 10/04/22 14:24:00 EDT, Do Not Route, Partial fill upon patient request if the prescription is for a schedule II opioid drug. Start Date: 10/04/22 Status: Ordered albuterol CFC free 90 mcg/inh [...] EDT, Supply Start Date: 12/18/21 Status: Ordered Cymbalta 30 mg oral enteric [...] Dry Weight Start Date: 07/21/21 Status: Ordered diltiazem 120 mg/24 hours oral capsule, extended release 120 mg, 1, capsule, By Mouth, Daily before lunch, # 30 capsule, Refills 0, Tot. Refills 0, Maintenance, 10/04/22 14:25:00 EDT, Do Not Route, Partial fill upon patient request if the prescription is for a schedule II opioid drug. Start Date: 10/04/22 Status: Ordered Eliquis 5 mg oral tablet 1 tablet, By Mouth, 2 times a day, # 60 tablet, 11 Refills, Maintenance, 05/28/22 16:36:00 EST, [facility], 191, cm, 02/11/22 11:45:00 EDT, Height, 170, kg, 02/05/22 22:35:00 EDT, Dry Weight Start Date: 05/28/22 Status: Ordered ferrous sulfate 325 mg oral enteric coated tablet 325 mg, By Mouth, Every Tuesday, Tuesday and Tuesday, # 12 tablet, Refills 0, Tot. Refills 0, Maintenance, 10/04/22 14:24:00 EDT, Do Not Route, Partial fill upon patient request if the prescription is for a schedule II opioid drug. Start Date: 10/04/22 Status: Ordered Flonase 50 mcg/inh nasal spray 1 sprays, Nares, Both, 2 times a day, # 16 Gm, 11 Refills, Maintenance, 07/08/20 16:47:00 EST, [place], [facility], 1 sprays [...] EDT, Route to Pharmacy Electronically, [facility], 191, cm, 02/11/22 11:45:00 EDT, Height, 170, kg, 02/05/22 22:35:00 EDT, . Start Date: 04/02/22 Status: Ordered gabapentin 400 mg oral capsule 400 mg, Capsule, By Mouth, 10/04/22 12:00:00 EDT Start Date: 10/04/22 Stop Date: 10/04/22 Status: Completed hydrOXYzine hydrochloride 25 mg oral tablet 1 tablet, By Mouth, 3 times a day, # 84 tablet, 5 Refills, Maintenance, 06/11/22 11:15:00 EST, [facility], 191, cm, 02/11/22 11:45:00 EDT, Height, 170, kg, 02/05/22 22:35:00 EDT, DryWeight Start Date: 06/11/22 Status: Ordered insulin lispro 100 u/ml subcutaneous [...] Refills, Maintenance, 03/09/22 9:51:00 EDT, [facility], 191, cm, 02/11/22 11:45:00 EDT, Height, 170, kg, 02/05/22 22:35:00 EDT, Dry Weight Start Date: 03/09/22 Status: Ordered LORazepam 2 mg oral tablet 1 tablet = 2 mg, By Mouth, 3 times a day, PRN for anxiety, # 90 tablet, 2 Refills, Maintenance, 06/11/21 16:39:00 EST, Tablet, [facility], 190, cm, 04/03/21 10:25:00 EDT, Height, 153, kg, 01/14/21 23:22:00 EDT, Dry Weight Start Date: 06/11/21 Status: Ordered metFORMIN 1000 mg oral tablet 0.5 tablet = 500 mg, By Mouth, Daily, # 90 tablet, 1 Refills, Maintenance, 03/15/22 18:36:00 EDT, [facility], 191, cm, 02/11/22 11:45:00 EDT, Height, 170, kg, 02/05/22 22:35:00 EDT, Dry Weight Start Date: 03/15/22 Status: Ordered metoprolol 25 mg oral tablet, extended release 75 mg, XL Tablet, By Mouth, Hold for: SBP less than 100 or HR less than 55, 10/04/22 9:00:00 EDT Start Date: 10/04/22 Stop Date: 10/04/22 Status: Completed Metoprolol Succinate ER 50 mg [...] 360 capsule, 2 Refills, Maintenance, 05/17/22 11:00:00 [facility], 191, cm, 02/11/22 11:45:00 EDT, [...] Status: Ordered torsemide 20 mg oral tablet 1 tablet = 20 mg, By Mouth, Daily, # 60 tablet, 5 Refills, Maintenance, 07/08/22 10:43:00 [facility], 191, cm, 02/11/22 11:45:00 EDT, Height, 170, kg, 02/05/22 22:35:00 EDT, DryWeight Start Date: 07/08/22 Status: Ordered traZODone 50 [...] Painful peripheral neuropathy - NOS Confirmed Active 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 REPORT STATUS : FINAL 08/21/2022 TEST:Blood Culture, Second Order STATUS:Auth (Verified) BODY SITE: SOURCE:Blood COLLECTED DATE/TIME:08/16/22 12:51 AM Blood Culture, Second Order SPECIMEN DESCRIPTION : BLOOD NO SITE SPECIAL REQUESTS : NONE CULTURE : NO GROWTH 5 DAYS. REPORT STATUS : FINAL 08/21/2022 Radiology Reports * Exam Date Time Procedure Performing Provider Status 09/25/22 12:07 PM Shoulder Min 2 Views Left Emilee Alaniz; Auth (Verified) Notes: (Shoulder Min 2 Views Left) Reason For Exam: Pain RESULT: Shoulder Min 2 Views Left Shoulder Min 2 Views Left INDICATION: Reason: Pain; Clinical Question(s): Fracture COMPARISON: 05/16/2022 FINDINGS: There is moderate degenerative bony hypertrophy at the left acromioclavicular joint. There is no fracture or subluxation. No bony destruction or erosion. IMPRESSION: No fracture. Moderate degenerative bony hypertrophy at the left acromioclavicular joint. WSN: [id number] Ordering Physician: Jing Nina Dictated By: Christina Lu MD Dictated Date/Time: 09/25/22 12:41 p Reviewed By: Christina Lu MD Signed By: Christina Lu MD Signed Date/Time: 09/25/22 12:41 pm Transcribed By: LEATHA Transcribed Date/Time: 09/25/22 12:40 pm * Exam Date Time Procedure Performing Provider Status 09/20/22 10:03 PM Chest Portable Mani Toure; Auth (Ve rified) Notes: (Chest Portable) Reason For Exam: Pleuritic Pain RESULT: Chest Portable Chest Portable Reason: Pleuritic Pain; Clinical Question(s): Pulmonary Edema COMPARISON: 08/15/2022, 02/05/[address] chest from 05/03/2022 FINDINGS: Patient is rotated. LINES AND TUBES: None. LUNGS AND PLEURA: Clear lungs. Normal pulmonary vascularity. No pleural effusion. No pneumothorax. HEART, MEDIASTINUM AND NNAMDI: Heart is normal in size. Apparent accentuation of the right paratracheal stripe due to projection. BONES AND SOFT TISSUES: No acute abnormality. IMPRESSION: No acute abnormality. WSN: [id number] Ordering Physician: Victorino Wolfe Dictated By: Emanuel Mena MD Dictated Date/Time: 09/21/22 0:02 am Reviewed By: Emanuel Mena MD Signed By: Emanuel Mena MD Signed Date/Time: 09/21/22 0:02 am Transcribed By: LEATHA Transcribed Date/Time: 09/21/22 0:01 am * Exam Date Time Procedure Performing Provider Status 09/13/22 4:42 PM Knee 1 or 2 Views Right Diogenes Sun; Auth (Verified) Notes: (Knee 1 or 2 Views Right) Reason For Exam: Pain RESULT: Knee 1 or 2 Views Right Knee 1 or 2 Views Right, views Reason: Pain; Clinical Question(s): Arthritis COMPARISON: 01/01/2021. FINDINGS: Partially visualized intramedullary ena in the tibia similar to prior. No fracture. Moderate-severe tricompartmental degenerative osteoarthritis but no evidence of osteochondral defect . The patellofemoral joint space narrowing appears to have progressed. Chondrocalcinosis in the medial and lateral tibiofemoral components. No evidence of joint effusion. IMPRESSION: Moderate-severe tricompartmental degenerative osteoarthritis with progression of patellofemoral joint space narrowing. Though, this in part may be due to differences in positioning. WSN: [id number] Ordering Physician: Jelly Ding Dictated By: Claude Eisenberg MD Dictated Date/Time: 09/13/22 6:38 pm Reviewed By: Claude Eisenberg MD Signed By: Claude Eisenberg MD Signed Date/Time: 09/13/22 6:38 pm Transcribed By: LEATHA Transcribed Date/Time: 09/13/22 6:34 pm * Exam Date Time Procedure Performing Provider Status 09/07/22 1:[address] Abdomen and Pelvi s W/O Contrast Carlos Toscano (Verified) Notes: (CT Abdomen and Pelvis W/O Contrast) Reason For Exam: Pain;Pain RESULT: CT Abdomen and Pelvis W/O Contrast CT Abdomen and Pelvis W/O Contrast REASON: Left lower quadrant pain; Clinical Question(s): Diverticulitis TECHNIQUE: Spiral CT through the abdomen and pelvis without IV contrast formatted in 3 planes. Thisstudy was performed without oral contrast. Weight- based protocol using automatic tube modulation was used to optimize exposure parameters. CTDIvol Body: 21.10 mGy, DLP Body: 1411 mGy*cm. COMPARISON: 08/15/2022 FINDINGS: Casting Chipper View Findings, Lines and Tubes: None. Visualized Chest: Mild dependent atelectasis. No pleural effusion. The heart is normal in size. No pericardial effusion. Diaphragm: Normal. Liver: Normal. Gallbladder: Cholelithiasis, without evidence of acute cholecystitis. Bile ducts: No biliary ductal dilation. Spleen: Enlarged spleen measuring up to 17 cm in the axial view. Pancreas: Normal. Adrenal glands: Normal. Kidneys and ureters: Mild bilateral cortical atrophy. No hydronephrosis, stones, or noncontrast evidence of suspicious masses. Bladder: Decompressed, however appears unremarkable. Reproductive organs: Unremarkable. Stomach, small bowel, and large bowel: Normal caliber stomach and bowel. No evidence of obstructionor inflammatory changes. Appendix: Not seen, but no evidence of appendicitis. Peritoneum and retroperitoneum: No ascites or pneumoperitoneum. No omental or mesenteric lesions. Lymph nodes: No enlarged lymph nodes. Blood vessels: Mild vascular calcifications but no aneurysm. Abdominal and pelvic wall: Bilateral fat-containing inguinal hernias. Bones: No acute abnormality. Moderate degenerative changes of visualized spine. Chronic wedge compression fractures of T11 and T12, appears unchanged. IMPRESSION: 1. No acute abnormality in the abdomen and pelvis. No evidence of acute diverticulitis. 2. Cholelithiasis without evidence of cholecystitis. 3. Splenomegaly. I have personally reviewed the images and I agree with this report. WSN: [id number] Ordering Physician: Melinda Ortiz Dictated By: Magui Booth DO Dictated Date/Time: 09/07/22 10:02 a Reviewed By: Carl Mcmahon MD Signed By: Carl Mcmahon MD Signed Date/Time: 09/07/22 10:07 am Transcribed By: LEATHA Transcribed Date/Time: 09/07/22 9:51 am * Exam Date Time Procedure Performing Provider Status 09/05/22 1:46 PM Abdomen AP Milana Lombardoissa; Auth (Ve rified) Notes: (Abdomen AP) Reason For Exam: Pain RESULT: XR Abdomen AP XR Abdomen AP 1 view INDICATION/CLINICAL QUESTION: Reason: Pain; Clinical Question(s): Constipation COMPARISON: None FINDINGS: Nonobstructing bowel gas pattern. There is increased amount of stool throughout the colon. No organomegaly, masses or calcifications. No acute bone findings. IMPRESSION: Nonobstructing bowel gas pattern. Increase stool throughout the colon. WSN: [id number] Ordering Physician: Aldo Chambres Dictated By: Christina Lu MD Dictated Date/Time: 09/05/22 6:36 pm Reviewed By: Christina Lu MD Signed By: Christina Lu MD Signed Date/Time: 09/05/22 6:36 pm Transcribed By: LEATHA Transcribed Date/Time: 09/05/22 6:35 pm * Exam Date Time Procedure Performing Provider Status 08/15/22 11:54 PM Chest 2 Views Frontal and Lat Leialni Olivares; Александр (Verified) Notes: (Chest 2 Views Frontal and Lat) Reason For Exam: Chest Pain;Other: RESULT: Chest 2 Views Frontal and Lat Chest 2 Views Frontal and Lat Hx of Present Illness: [facility] . Todaypatient developed N v d. also patient is complaining of intermittent midsternal sharp chest pain radiating to left shoulder.; Reason: Other:; Chest Pain; Clinical Question(s): Other: COMPARISON: Multiple prior examinations the most recent dated 05/15/2022. FINDINGS: LINES AND TUBES: None. LUNGS AND PLEURA: Clear lungs. Normal pulmonary vascularity. No pleural effusion. No pneumothorax. HEART, MEDIASTINUM AND NNAMDI: Heart is normal in size. Normal mediastinal and hilar contour. BONES AND SOFT TISSUES: No acute abnormality. IMPRESSION: No acute abnormality. WSN: [id number] Ordering Physician: Jennifer Katz Dictated By: Alexandre Albarran MD, V Dictated Date/Time: 08/16/22 8:27 am Reviewed By: Alexandre Albarran MD, V Signed By: Alexandre Albarran MD, V Signed Date/Time: 08/16/22 8:27 am Transcribed By: LEATHA Transcribed Date/Time: 08/16/22 8:26 am * Exam Date Time Procedure Performing Provider Status 08/16/22 12:[address] Abdomen and Pelvi s W/O Contrast Betsy Santos; Александр (Verified) Notes: (CT Abdomen and Pelvis W/O Contrast) Reason For Exam: diarrhea, uti recent;Other: RESULT: CT Abdomen and Pelvis W/O Contrast CT Abdomen and Pelvis W/O Contrast HX OF PRESENT ILLNESS: patient recently discharged from [facility] for uti on . Todaypatient developed N v d. Also patient is complaining of intermittent midsternal sharp chest pain radiating to left shoulder. TECHNIQUE: Spiral CT through the abdomen and pelvis without IV contrast formatted in 3 planes. Thisstudy was performed without oral contrast. Weight- based protocol using automatic tube modulation was used to optimize exposure parameters. CTDIvol Body: 28.10 mGy, DLP Body: 1721 mGy*cm. COMPARISON: 04/25/2022 and priors. FINDINGS: Casting Chipper View Findings, Lines and Tubes: None. Visualized Chest: Minimal bilateral dependent atelectasis. No pleural effusion. The heart is normalin size. No pericardial effusion. Diaphragm: Normal. Liver: Normal. Gallbladder: Underdistended with a gallstone near its neck. No evidence of cholecystitis. Bile ducts: No biliary ductal dilation. Spleen: Splenomegaly measuring 16.8 cm, unchanged from priors. Pancreas: Normal. Adrenal glands: Normal. Kidneys and ureters: No hydronephrosis, stones, or noncontrast evidence of suspicious masses. Bladder: Mild concentric bladder wall thickening without adjacent fat stranding or other signs of inflammation. Reproductive organs: Unremarkable. Stomach, small bowel, and large bowel: Scattered noninflamed colonic diverticula. The stomach and small bowel are unremarkable. Appendix: Normal. Peritoneum and retroperitoneum: No ascites or pneumoperitoneum. No omental or mesenteric lesions. Lymph nodes: Multiple borderline enlarged pelvic lymph nodes are unchanged, for example right external iliac lymph node measuring 0.8 cm in short axis (series 201:118), and left external iliac lymph node measuring 0.8 cm in short axis (series 201:148), both stable from study dated 05/03/2022. Blood vessels: Mild vascular calcifications but no aneurysm. Abdominal and pelvic wall: Small right fat-containing inguinal hernia. Diffuse muscular atrophy. Bones: Moderate to severe degenerative changes of the visualized spine with minimal retrolisthesis of L4 on L5. Chronic T11 compression fracture with increasing T12 compression fracture.. IMPRESSION: Minimal bladder wall thickening without adjacent fat stranding or other signs of inflammation, consistent with known history of resolving UTI. Otherwise, no cause for patient's symptoms is seen on current study. Cholelithiasis without evidence of cholecystitis. Unchanged splenomegaly. Interval worsening of a T12 compression fracture. I have personally reviewed the images and I agree with this report. WSN: [id number] Ordering Physician: Jasmyn Carmen Dictated By: Jamison Gonzalez MD Dictated Date/Time: 08/16/22 7:09 am Reviewed By: Nitin Curry MD Signed By: Nitin Curry MD Signed Date/Time: 08/16/22 7:14 am Transcribed By: LEATHA Transcribed Date/Time: 08/16/22 0:30 am Vital Signs Most recent to oldest [Reference Range]: 1 2 3 Weight 146 kg (10/04/22 2:49 PM) 143.8 kg (10/04/22 5:09 AM) 150.3 kg (10/01/22 4:32 AM) Oxygen Saturation [94-100 %] 98 % (10/04/22 3:00 PM) 94 % (10/04/22 7:00 AM) 98 % (10/03/22 11:18 PM) Pulse Rate [55-90 bpm] 98 bpm *H* (10/04/22 3:00 PM) 78 bpm (10/04/22 10:29 AM) 78 bpm (10/04/22 7:00 AM) Blood Pressure [90-138/55-84 mm Hg] 113/77mm Hg (10/04/22 3:00 PM) 115/72mm Hg (10/04/22 10:29 AM) 95/55mm Hg (10/04/22 7:00 AM) Respiratory Rate [16-30 br/min] 20 br/min (10/04/22 3:00 PM) 18 br/min (10/04/22 2:55 PM) 20 br/min (10/04/22 1:55 PM) Temperature [96.8-100.4 DegF] 98.9 DegF (10/04/22 3:00 PM) 98.6 DegF (10/04/22 7:00 AM) 98.0 DegF (10/03/22 11:18 PM) Liters per Minute 2 L/min (09/22/22 7:00 AM) 2 L/min (09/22/22 4:00 AM) 1 L/min (09/21/22 7:55 PM) Mode of Delivery (Oxygen) Room air (10/04/22 3:00 PM) Room air (10/04/22 7:00 AM) Room air (10/03/22 11:18 PM) Blood pressure sites Arm, left (10/04/22 3:00 PM) Arm, left (10/04/22 7:00 AM) Arm, left (10/03/22 11:18 PM) Temperature Route Oral (10/04/22 3:00 PM) Oral (10/04/22 7:00 AM) Oral (10/03/22 11:18 PM) Dry Weight 148.7 kg (08/28/22 4:50 AM) 148.8 kg (08/27/22 6:12 AM) Weight Obtained Via Bed scale (10/04/22 5:09 AM) Bed scale (09/21/22 6:21 AM) Bed scale (09/15/22 6:28 AM) Dry Weight Obtained Via Bed scale (08/28/22 4:50 AM) Bed scale (08/27/22 6:12 AM) Social History Social History Type Response Smoking Status Never entered on: 05/15/18 Sex History and physical note * Jhonny WILKINS, Elizabet Castro: PERFORM, MODIFY Event Display: History and Physical Hospital Authored Date: [id number] Patient: ??LEON BRUNER ? Age:??62 Years?Sex:??Male?:??1960?? Chief Complaint/Reason for Consultation recent admission at [facility] treated for UTI-- diarrhea and weakness. History of Present Illness Mr. Chowdhury???Kristian???is a 62-year-old??who does have a history of morbid obesity by BMI,??atrial fibrillation??on apixaban, DVT, hypertension, hyperlipidemia, HFpEF,??history of pericarditis, seizure disorder, type 2 diabetes with diabetic neuropathy, chronic pain syndrome, PTSD with depression anxiety and agoraphobia??who was recently hospitalized??at [facility] after a fall??with acute on chronic pain??and was found to have UTI treated with antibiotics???now presenting for evaluation??of diarrhea, weakness and sharp chest pains.?? Patient reports that he was hospitalized for about 13 days at [facility] after a fall at home where he had acute on chronic pain from a back injury??without specific??traumatic??fracture but was also found to have a urinary tract infection that was treated with antibiotics.?? Paperwork from his [facility] admission was not available at the time of??this note??but have been requested by the ED staff. ??Starting on Tuesday afternoon he began to experience intermittent profuse watery??brown diarrhea??without any evidence of blood.?? He estimates 2-5??episodes per day since that time. ??He was having some occasional left lower quadrant abdominal pains.?His baseline pain level is about??7 out of 10 and at times would get higher than this despite his efforts with pain medication. ??He denies any nausea or vomiting.?He was having chills but he is not aware of any fever. Note???he reports that multiple medications were started or adjusted during the hospital stay??but he did not??continue all of them on discharge including finasteride doxazosin magnesium oxide??and??diabetes as well as empagliflozin.?He is on chronic oxycodone andthere have been no changes to the dosing. ??Additionally he was not using any stool softeners or??antidiarrheal medications at home.?? He reports having COVID on 2022??and has not had any other??viral??URI symptoms.. ??He also noticed darkening of his urine??with occasional burning.?? He had??sense of??heart racing and??intermittent sharp left-sided chest pains that radiated to the left shoulder. ??For all of these reasons he??contacted his son??who subsequently presented with EMS??and brought him to the emergency department. ?? With EMS his vital signs revealed tachycardia with A-fib in the 100s??O2 sat of 96% on 3 L and blood pressure 110/68.?? In the ED his blood pressures remained stable but his heart rates??did vary with rapid atrial fibrillation in the 100s to 120s??and ongoing blood pressure stability. ??EKG showed A-fib RVR at 124 with a QTc of 545??right and left bundle branch blocks. ??Bedside echo showed??respiratory variation of the IVC??and no evidence of B-lines.?? His lactate was 2.7 and improved to 1.7 after??1 L of fluid. ??He was treated with repeated doses of morphine??for pain. ??He did not receive any hailey blocking medications..?? He was sent for chest x-ray and CT abdomen and pelvis which f inal reads are pending???no acute process reported by ED staff??on preliminary read.?? C. difficilewas ordered and is pending. ??Request was made for medical admission. Review of Systems Constitutional???chills. HEENT no headache Cardiovascular chest pain palpitations as per HPI Respiratory??no acute respiratory symptoms GI diarrhea and abdominal pain???left lower quadrant as per HPI??no evidence of bleeding and no nausea or vomiting. ??dark-colored urine with occasional dysuria but no retention or incontinence Functional/musculoskeletal???chronic pain. ??Difficulty getting out of bed???wheelchair-bound with ability to walk 3-5 steps at baseline and transfer independently. Neurologic???generalized weakness, neuropathy. Psychiatric???on treatment for depression and anxiety??and PTSD??with mood instability. Skin???she has left heel blister and a right great toe ulcer??as well as some??tender nodules on the right leg Objective Vital Signs?? Temperature: 97.7 DegF (08/16/22 04:41:00) Temperature Route: Oral (08/16/22 04:41:00) Pulse Rate:??115 bpm??High (08/16/22 04:41:00) Respiratory Rate: 21 br/min (08/16/22 05:00:00) Systolic Blood Pressure: 125 mm Hg (08/16/22 04:41:00) Diastolic Blood Pressure: 77 mm Hg (08/16/22 04:41:00) Blood pressure sites: Arm, right (08/16/22 04:41:00) Mean Arterial Pressure: 99 mm Hg (08/15/22 19:56:00) Pulse Pressure: 48 mm Hg (08/16/22 04:41:00) Oxygen Saturation: 99 % (08/16/22 04:41:00) Liters per Minute: 3 L/min (08/16/22 04:41:00) Mode of Delivery (Oxygen): Room air (08/16/22 04:41:00) Early Warning Score: 6 (08/16/22 05:01:31) ? Physical Exam General???chronically ill-appearing??male in no acute distress Eyes sclerae anicteric noninjected without protuberance,extraocular movements??intact HEENT??no sinus pressure tenderness normal oropharynx Pulmonary???lungs are clear to auscultation bilaterally without any wheezing Cardiovascular tachycardic irregular S1-S2??residual murmurs rubs or gallops. ??No chest wall tenderness Gastrointestinal???abdomen is flat nondistended with normal bowel sounds??but he does have some tenderness with??rebound guarding in the left lower quadrant???no peritoneal signs Musculoskeletal chronic lymphedema changes??of the bilateral lower extremities with's except increased scarring and discoloration on the right leg. Skin???he has a flaccid??blister on the??left heel without surrounding??erythema or induration.,?? Right great toe with??ulceration and eschar??no signs of infection Assessment/Plan Assessment:??Mr. Chowdhury???Kristian???is a 62-year-old who does have a history of morbid obesity by BMI, atrial fibrillation on apixaban, DVT, hypertension, hyperlipidemia, HFpEF, history of pericarditis, seizure disorder, type 2 diabetes with diabetic neuropathy, chronic pain syndrome, PTSD with depression anxiety and agoraphobia who was recently hospitalized at [facility] after a fallwith acute on chronic pain and was found to have UTI treated with antibiotics???now presenting for evaluation of diarrhea, weakness and sharp chest pains and is admitted for further??treatment and evaluation. ?? Acute diarrhea (R19.7):??Etiology unclear but most concerning for possible C. difficile or antibiotic associated diarrhea given the timeline??with his recent hospitalization/treatment for UTI.??He did undergo CT abdomen and pelvis for left lower quadrant pain??with preliminary read showing no acuteprocess??but differential including??colitis/diverticulitis??prompting this study.??He was not using any??laxatives and had not been taking the prescribed magnesium. He also carries dx of chronic diarrhea- could be flare of??underlying condition if other testing is unrevealing. ?Follow-up??stool studies???C. difficile ??? Follow-up blood cultures ??? Follow-up CT abdomen and pelvis read ??? Continue supportive care??including pain meds and additional IV fluid??bolus at this time and monitoring for ongoing??needs ?Continue serial abdominal exams ?? Rapid atrial fibrillation (I48.91):??- Paroxysmal A-fib (I48.0): Volume depletion (E86.9):? Patient with heart rates into the 120s???rapid atrial fibrillation??in the setting of volume depletion from??ongoing??fluid losses from the acute diarrhea as described??as well as??ongoing diuretic treatment??and recently reduced metoprolol dose from 75 mg daily to 50 mg??daily per patient.??The patient was taking his torsemide??but had not been taking??his empagliflozin. ??? Additional IV fluid bolus at this time ??? Continue telemetry ??? Continue diltiazem ??? Continue metoprolol???we will return to the previous 75 mg daily dose??and monitor for effect ??? Check TSH and magnesium. ? Chronic heart failure with preserved ejection fraction (HFpEF) (I50.32):??Volume depleted as above.??Additional IV fluids and??will continue to hold??the torsemide for now??monitoring volume status closely. ??Follow-up chest x-ray??results. ?? Mood disorder NOS (F39):??. He reports a history of PTSD, depression, anxiety and agoraphobia??and??psychiatrist??that he follows with. -We will continue duloxetine ???Continue lorazepam with hold parameters ?Continue quetiapine??with hold parameters ?Notes that hydroxyzine is for itch and not anxiety ??? Continue trazodone as needed for sleep ?? Diabetes mellitus with neuropathy (E11.40):??Patient has been taking??metformin only and had not started his sliding scale insulin or??the empagliflozin following discharge from [facility].?? -For now given the??hospitalization/CT scan we will hold the??metformin.?? -We will also hold??empagliflozin given the volume concerns and formulary. ??We will continue monitor POC??and sliding scale if needed.?? Will need diabetes teaching if insulin is to be administered on an ongoing basis ?? Epilepsy (G40.909):??No acute issues. We will continue the??phenytoin 200 mg in the morning and 400mg at bedtime per patient ?? History of COVID-19 (Z86.16):??He had COVID in 2022. He inquired about additional booster doseand was advised??to??receive booster??3 months following his illness Anemia???likely chronic. Will check iron and??ferritin. Patient is not taking??the vitamin B12 ?? Hyperlipidemia (E78.5):??Continue atorvastatin ?? Hypertension (I10):??Continue diltiazem and metoprolol as well as Imdur ?? Obstructive sleep apnea (G47.33):??Ordered BiPAP??19/01 as per previous??sleep study ?? Acquired lymphedema of leg (I89.0):?? Chronic widespread pain disorder (G89.4):?? Painful peripheral neuropathy - NOS (G62.9):?? -We will continue the home gabapentin dose??of 400 mg 5 times daily??holding for sedation if needed. ??? Continue oxycodone??with caution not to overlap with lorazepam -He has an ulcer??on his right great toe and a blister on his left heel???wound care consult has been requested as well ?? Anemia???chronic???check ferritin and iron. Recent UTI- no signs of ongoing infection ?Urinary retention vs BPH- was rx'd??finasteride and doxazosin??upon recent discharge???the patientwas not aware with this medication indication was for and he did not start taking them??following his release. ??We will continue to hold them but have ordered bladder scans??to assess for any underlying process ?? VTE Prophylaxis:??Therapeutic apixaban???we will continue ?VTE Prophylaxis Assessment:??VTE Prophylaxis Ordered ?? Diet- Clear liquids- advance as tolerated clinically. ?? Code Status:??Fall ?Order Code Status:??Code Status Ordered ?? Ongoing Medical Necessity:??treatment of the above issues ?? Discharge Planning:??Anticipate discharge home??when medically improved. Case management consultation was requested as I do feel he??needs visiting nurse care ? Histories Allergies Allergies ?(Active and Proposed Allergies Only) antivenin (black spider)? (Severity: Unknown severity, Onset: Unknown) Bee Stings? (Severity: Unknown severity, Onset: Unknown) Contrast Dye? (Severity: Unknown severity, Onset: Unknown) ?Reactions: urticaria clindamycin? (Severity: Unknown severity, Onset: Unknown) ?Reactions: Hives Latex? (Severity: Unknown severity, Onset: Unknown) ?Reactions: anaphylaxis penicillin? (Severity: Unknown severity, Onset: Unknown) ?Reactions: rash ? Past Medical History/Problem List Active Problems/ Past Surgical History Acquired lymphedema of leg Chronic diarrhea Chronic widespread pain disorder Diabetes mellitus with neuropathy Epilepsy Heart failure with preserved left ventricular function (HFpEF) History of COVID-19 History of pericarditis History of TIA (transient ischemic attack) History of urinary tract infection Hyperglycemia Hyperlipidemia Hypertension Iron deficiency anemia Limited mobility half-way prescription benzodiazepine use Long-term current use of anticonvulsants ??(phenytoin and oxcarbazepine) Mood disorder NOS Morbid obesity with BMI of 50.0-59.9, adult Multiple complaints Non-insulin dependent type 2 diabetes mellitus Obstructive sleep apnea Painful peripheral neuropathy - NOS Paroxysmal A-fib Pericarditis PTSD - Post-traumatic stress disorder Pulmonary hypertension Severe obesity ? Social History Alcohol Details:??Use: Never. Employment/School Details:??Status: Disabled. Exercise Details:??Self assessment: Poor condition. ??Regular exercise: No. Home/Environment Details:??Living situation: Home/Independent. ??Lives with: Alone. Nutrition/Health Details:??Diet: Regular. ??Caffeine intake amount: None. ??Feels highly stressed: Yes. Substance Abuse Details:??Use: Never. Tobacco Details:??Smokeless tobacco use: Never. ? Family History Mat. Grandmother: Diabetes mellitus Both of his parents are ???his mother of dementia. ??His brother has MS ?? Medications Home Medications Albuterol (albuterol CFC free 90 mcg/inh inhalation aerosol)?2?puff(s)?Inhalation?Every4 hours?as needed?Wheezing/Shortness of Breath apixaban (Eliquis 5 mg oral tablet)?1?tab(s)?By Mouth?2 times a day Atorvastatin (Lipitor 80 mg oral tablet)?1?tab(s)?80?Milligram?By Mouth?Daily Diltiazem (Cardizem CD 360 mg/24 hours oral capsule, extended release)?1?capsule?360?Milligram?By Mouth?Daily Duloxetine (Cymbalta 30 mg oral enteric coated capsule)?2?capsule?60?Milligram?By Mouth?2 times a day Fluticasone Nasal (Flonase 50 mcg/inh nasal spray)?1?spray(s)?Nares, Both?2 times a dayprn Gabapentin (gabapentin 400 mg oral capsule)?1?capsule?By Mouth?5 times a day?HOLD FOR SEDATION. HydrOXYzine (hydrOXYzine hydrochloride 25 mg oral tablet)?1?tab(s)?By Mouth?3 times a day Insulin Lispro (insulin lispro 100 u/ml subcutaneous injection)?0?unit(s)?Subcutaneous Injection?3 times a day before meals?<150: zero insulin, ??151-200: 2 units, 201-250: 4 units,251-300: 6 units, 301-350: 8 units, > 350: 10 units & Call PCP Isosorbide Mononitrate (Imdur 60 mg oral tablet, extended release)?60?Milligram?By Mouth?Daily in AM Loperamide (loperamide 2 mg oral tablet)?1?tab(s)?By Mouth?Every 4 hours?as needed? NEEDED FOR LOOSE STOOL Lorazepam (LORazepam 2 mg oral tablet)?1?tab(s)?2?Milligram?By Mouth?3 times a day?as needed?for anxiety Metformin (metFORMIN 1000 mg oral tablet)?1?tab(s)?1,000?Milligram?By Mouth?Daily *Metoprolol (Metoprolol Succinate ER 50 mg oral tablet, extended release)?1?tab(s)?By Mouth?Daily nalOXONE (Narcan 4 mg/0.1 mL nasal spray)?4?Milligram?Naris, [...] FOR INSOMNIA torsemide (torsemide 20 mg oral tablet)?2?tab(s)?By Mouth?Daily Trazodone (traZODone 50 mg oral tablet)?100?Milligram?2?tablet?By Mouth?Daily at bedtime?as needed?TAKE 2 TABLETS BY MOUTH EVERY NIGHT.?Sleep ? Recently prescribed medications that the patient did not initiate at home? Magnesium Oxide (magnesium oxide 400 mg oral tablet)?1?tab(s)?400?Milligram?By Mouth?Daily?for 14?Days Loperamide (loperamide 2 mg oral tablet)?1?tab(s)?By Mouth?Every 4 hours?as needed? NEEDED FOR LOOSE STOOL Insulin Lispro (insulin lispro 100 u/ml subcutaneous injection)?0?unit(s)?Subcutaneous Injection?3 times a day before meals?<150: zero insulin, ??151-200: 2 units, 201-250: 4 units,251-300: 6 units, 301-350: 8 units, > 350: 10 units & Call PCP empagliflozin (Jardiance 10 mg oral tablet)?1?tab(s)?10?Milligram?By Mouth?Daily in AM Finasteride (finasteride 5 mg oral tablet)?TAKE 1 TABLET BY MOUTH DAILY. Doxazosin (doxazosin 2 mg oral tablet)?TAKE TWO TABLETS BY MOUTH AT BEDTIME Results ?? Test Name Test Result Date/TimeWBC 8.4 k/mm3 08/15/2022 21:03 EDT Hgb 10.3 Gm/dL (Low) 08/15/2022 21:03 EDT Hct 35.7 % (Low) 08/15/2022 21:03 EDT Platelet Count 439 k/mm3 08/15/2022 21:03 EDT Neut % 80.9 % (High) 08/15/2022 21:03 EDT Sodium 137 mmol/L 08/15/2022 21:03 EDT Potassium 4.3 mmol/L 08/15/2022 21:03 EDT Chloride 98 mmol/L 08/15/2022 21:03 EDT Bicarbonate Level 28 mmol/L 08/15/2022 21:03 EDT Anion Gap 11 08/15/2022 21:03 EDT Glucose Level 170 mg/dL (High) 08/15/2022 21:03 EDT Glucose, POC 146 mg/dL (High) 08/16/2022 01:54 EDT BUN 11 mg/dL 08/15/2022 21:03 EDT Creatinine-Blood 0.8 mg/dL 08/15/2022 21:03 EDT Estimated GFR Creatinine 99 ML/MIN/1.73 M2 08/15/2022 21:03 EDT Calcium 9.2 mg/dL 08/15/2022 21:03 EDT Lipase 13 units/L 08/15/2022 21:03 EDT Lactate 1.7 mmol/L 08/15/2022 23:59 EDT Lactate 2.7 mmol/L (High) 08/15/2022 21:03 EDT Nt-Probnp 932 pg/mL (High) 08/15/2022 21:03 EDT High Sensitivity Troponin (HSTnT) 37 ng/L (High) 08/16/2022 01:52 EDT High Sensitivity Troponin (HSTnT) 37 ng/L (High) 08/15/2022 22:54 EDT High Sensitivity Troponin (HSTnT) 38 ng/L (High) 08/15/2022 21:03 EDT Imaging(s) ?Chest 2 Views Frontal and Lat ?? 08/15/2022 23:54 ?CT Abdomen and Pelvis W/O Contrast ?? 08/16/2022 00:08 ? Microbiology(s) ?Influenza A PCR ?? 08/16/2022 00:40 ?Influenza B PCR ?? 08/16/2022 00:40 ?RSV PCR ?? 08/16/2022 00:40 ?COVID-19 by RT-PCR ?? 08/15/2022 20:58 ? EKG study * Event Display: ECG 12-Lead Authored Date: Please click on pdf link to open report * Event Display: ECG 12-Lead Authored Date: Ventricular Rate: 83 BPM Atrial Rate: 375 BPM QRS Duration: 166 ms Q-T Interval: 428 ms QTC Calculation(Bazett): 502 ms R Mize: 270 degrees T Mize: 21 degrees Atrial fibrillation Left axis deviation Right bundle branch block Inferior infarct (cited on or before 11-JUL-2021) Abnormal ECG When compared with ECG of 17-SEP-2022 21:05, No significant change was found Confirmed by MINO WEST MD ([id number]) on 09/22/2022 8:33:08 AM [place]: MINO WEST MD * Event Display: ECG 12-Lead Authored Date: Please click on pdf link to open report * Event Display: ECG 12-Lead Authored Date: [id number] Ventricular Rate: 72 BPM Atrial Rate: 46 BPM QRS Duration: 160 ms Q-T Interval: 444 ms QTC Calculation(Bazett): 486 ms R Mize: 267 degrees T Mize: 24 degrees Atrial fibrillation Right bundle branch block Inferior infarct (cited on or before 11-JUL-2021) Abnormal ECG When compared with ECG of 08-SEP-2022 14:07, No significant change was found Confirmed by CLAYTON AHUMADA ([id number]) on 09/19/2022 12:59:51 PM [place]: CLAYTON AHUMADA * Event Display: ECG 12-Lead Authored Date: [id number] Please click on pdf link to open report * Event Display: ECG 12-Lead Authored Date: [id number] Ventricular Rate: 78 BPM QRS Duration: 170 ms Q-T Interval: 448 ms QTC Calculation(Bazett): 510 ms R Mize: -87 degrees T Mize: 21 degrees Atrial fibrillation Left axis deviation Right bundle branch block Inferior infarct (cited on or before 11-JUL-2021) Abnormal ECG When compared with ECG of 29-AUG-2022 22:20, No significant change was found Confirmed by JING PEREIRA MD ([id number]) on 09/08/2022 3:56:06 PM [place]: JING PEREIRA MD Note * Alfonso Carter RN: PERFORM Event Display: Discharge/Transfer Note Hospital Authored Date: [id number] Nursing Discharge Note Entered On: 10/04/2022 17:28 EDT Performed On: 10/04/2022 17:27 EDT by Alfonso Carter RN Nursing Discharge Note 2 Discharge Time : 10/04/2022 17:15 EDT Discharge Level of Care at Discharge : Psychiatric Facility/Unit Discharge Nursing Homes/Rehab Facilities : [facility] Discharge VNA/Hospice/Home Care(v001) : [facility], [place] Adults [phone] Patient Left Unit Via : Ambulance Patient Accompanied Off Unit with : Ambulance/Chair Van Personnel Handover Given to Transport Personnel : Yes DC Instructions Provided & Signed by Pt : No Patient Understands D/C Instructions : No Patient Instructions Discharge Signed : No Did Pt have Specialty Bed or Wound Vac : No Alfonso Carter RN - 10/04/2022 17:27 EDT * Reyes WILKINS, Aldo: MODIFY, PERFORM Event Display: Discharge/Transfer Note Hospital Authored Date: Patient: ??LEON BRUNER ? Age:??62 Years?Sex:??Male?:??1960?? Patient Information Discharge Location: W4 Primary Care Physician: Brown Parada MD Admit Date/Time: 08/15/22 19:37 Discharge Disposition Discharge Disposition: ?? Discharge Diagnosis Acute diarrhea (R19.7) Rapid atrial fibrillation (I48.91) Paroxysmal A-fib (I48.0) Volume depletion (E86.9) Chronic heart failure with preserved ejection fraction (HFpEF) (I50.32) Acquired lymphedema of leg (I89.0) Chronic widespread pain disorder (G89.4) Diabetes mellitus with neuropathy (E11.40) Epilepsy (G40.909) History of COVID-19 (Z86.16) Hyperlipidemia (E78.5) Hypertension (I10) Non-insulin dependent type 2 diabetes mellitus (E11.9) Mood disorder NOS (F39) Obstructive sleep apnea (G47.33) Painful peripheral neuropathy - NOS (G62.9) Non-pressure chronic ulcer of other part of right foot with fat layer exposed (L97.512) Pressure injury of deep tissue of left heel (L89.626) Pressure ulcer of left heel, stage 2 (L89.622) Ulcer of foot due to diabetes (E11.621) Chronic diarrhea Diabetes mellitus with neuropathy Epilepsy History of TIA (transient ischemic attack) Morbid obesity with BMI of 50.0-59.9, adult Obstructive sleep apnea Paroxysmal A-fib Pulmonary hypertension ?? _ Discharge Medications Albuterol (albuterol CFC free 90 mcg/inh inhalation aerosol)?2?puff(s)?Inhalation?Every4 hours?as needed?Wheezing/Shortness of Breath apixaban (Eliquis 5 mg oral tablet)?1?tab(s)?By Mouth?2 times a day Aripiprazole (Abilify 5 mg oral tablet)?7.5?Milligram?1.5?tablet?By Mouth?Daily in AM Atorvastatin (Lipitor 80 mg oral tablet)?1?tab(s)?80?Milligram?By Mouth?Daily Diltiazem (diltiazem 120 mg/24 hours oral capsule, extended release)?120?Milligram?1?capsule?By Mouth?Daily before lunch Duloxetine (Cymbalta 30 mg oral enteric coated capsule)?2?capsule?60?Milligram?By Mouth?2 times a day Durable Medical Equipment (Nasza-klasa.pl Cozmo Glucometer)?See Instructions?check blood sugar levelsbefore meals [...] cmDx: G89.4, 189, E66.01, 127.20lon 99 MO Durable Medical Equipment (FreeStyle Christin 2 Monitor)?See Instructions?DM 2 E11.9 Durable Medical Equipment (FreeStyle Christin 2 Sensors)?See Instructions?E11.9 DM2 Ferrous Sulfate (ferrous sulfate 325 mg oral enteric coated tablet)?325?Milligram?By Mouth?Every Tuesday, Tuesday and Tuesday Fluticasone Nasal (Flonase 50 mcg/inh nasal spray)?1?spray(s)?Nares, Both?2 times a day Gabapentin (gabapentin 400 mg oral capsule)?1?capsule?By Mouth?5 times a day?HOLD FOR SEDATION. HydrOXYzine (hydrOXYzine hydrochloride 25 mg oral tablet)?1?tab(s)?By Mouth?3 times a day Insulin Lispro (insulin lispro 100 u/ml subcutaneous injection)?0?unit(s)?Subcutaneous Injection?3 times a day before meals?<150: zero insulin, ??151-200: 2 units, 201-250: 4 units,251-300: 6 units, 301-350: 8 units, > 350: 10 units & Call PCP Loperamide (loperamide 2 mg oral tablet)?1?tab(s)?By Mouth?Every 4 hours?as needed? NEEDED FOR LOOSE STOOL Lorazepam (LORazepam 2 mg oral tablet)?1?tab(s)?2?Milligram?By Mouth?3 times a day?as needed?for anxiety Metformin (metFORMIN 1000 mg oral tablet)?0.5?tab(s)?500?Milligram?By Mouth?Daily Metoprolol (Metoprolol Succinate ER 50 mg oral tablet, extended release)?1?tab(s)?By Mouth?Daily nalOXONE (Narcan 4 mg/0.1 mL nasal spray)?4?Milligram?Naris, [...] FOR INSOMNIA torsemide (torsemide 20 mg oral tablet)?1?tab(s)?20?Milligram?By Mouth?Daily Trazodone (traZODone 50 mg oral tablet)?100?Milligram?2?tablet?By Mouth?Daily at bedtime?as needed?TAKE 2 TABLETS BY MOUTH EVERY NIGHT.?Sleep ? Medications Started Ferrous sulfate Abilify Medications Discontinued None Doses Changed Dilt decreased to 120mg Daily Imdur decreased to 30mg Daily Decreased Metformin to 500mg Daily for improved BG Decreased Torsemide to 20mg a day Allergies Allergies ?(Active and Proposed Allergies Only) antivenin (black spider)? (Severity: Unknown severity, Onset: Unknown) Bee Stings? (Severity: Unknown severity, Onset: Unknown) Contrast Dye? (Severity: Unknown severity, Onset: Unknown) ?Reactions: urticaria clindamycin? (Severity: Unknown severity, Onset: Unknown) ?Reactions: Hives Latex? (Severity: Unknown severity, Onset: Unknown) ?Reactions: anaphylaxis penicillin? (Severity: Unknown severity, Onset: Unknown) ?Reactions: rash ? PCP Follow-Up/Heads-Up Patient with several blood pressure medications titrated down due asymptomatic hypotension Patient's blood sugars well controlled on insulin sliding scale, will restart home meds at decreased dosing please follow-up blood sugars and titrate as needed Hospital Course Leon Bruner is a 62-year-old with a medical history of morbid obesity by BMI, atrial fibrillation on apixaban, DVT, hypertension, hyperlipidemia, HFpEF, history of pericarditis, seizure disorder, type 2 diabetes with diabetic neuropathy, chronic pain syndrome, PTSD with depression anxiety andagoraphobia, who presented for evaluation of diarrhea, weakness and sharp chest pain. Patient was medically cleared 08/18 but expressed suicidal ideation with an active plan, readmitted for further evaluation and management. Patient had acute diarrhea work-up that was negative, but ultimately resolved. Cardiac work-up for the chest pain showed right bundle branch block, but no other signs of ischemia and ultimately also resolved.?His course was complicated by abdominal pain which x-ray and CTscan of the abdomen were performed which showed stool burden, he was started on bowel regimen whichimproved his discomfort. X-ray of the knee for pain showed osteoarthritis.??Patient prior to discharge endorsed suicidal ideation, for which she was rehospitalized. Patient seen by psychiatry and they recommended him for inpatient psychiatric hospitalization. He was COVID PUI, asymptomatic and did not require oxygen or steroid treatments. He was intermittently hypotensive throughout his admissionsecondary to weight loss requiring titration of blood pressure medications. ?? Objective Assessment and Plan Major depressive disorder History of anxiety, agoraphobia, PTSD Suicidal ideation Mood disorder NOS Reached out to psych on 09/28/22 and is on active bed search Escalated bed search situation with [facility] Patient does not need bariatric??bed ?? Recommendations -Pending psych bed search -Continue on his home duloxetine, lorazepam, Seroquel, hydroxyzine, and trazodone, Abilify increased to 7.5mg ?? History of hypertension Hypotension Paroxysmal atrial fibrillation with RVR - rvr resolved Chronic heart failure with preserved ejection fraction - stable Patient with low blood pressures when they are tested as he is lying flat, but show some improvement when sitting up. He received several fluid boluses during this admission with mild improvement of blood pressure. He also reports that in the past 3 to 4 months he has lost a lot of weight which might be contributing to improve blood pressure and overmedication from previous blood pressure regimen. ?? Recommendations -Diltiazem decreased??to 120mg qD -Torsemide decreased??to 20 qD -Continue Imdur 30mg qD -Continue metoprolol -Continue apixaban -Follow up BP outpatient ?? Lymphedema lower extremity Chronic ulcers right great toe and left heel ?? Recommendations -PRN pain meds -Follow up with wound care outpatient -Wound care recs 1. rt great toe/left heel: Clean w/NS. Pat dry. Apply 2 layers of Xeroform to open wound bed; cut to fit size of wound. Cover w/gauze and secure w/medipore tape. Change QD 2. left heel: Apply SkinPrep wipe to deep tissue injury area (not open ulcer). Allow to completely dry. Apply QD. 3. Apply Z Boots to offload pressure from left heel (from distribution). 4. Continue to provide optimal diabetic nutritional support 5. Recommend pt f/u with local wound care center upon discharge for wound/ulcer management. If referring to [facility], please request through the [employer] list listed as a tab in the Inbox Summary section; select Wound Care - Scheduling to send a communication message requesting an appointment. 6. Recommend pt obtain convoluted boot/bunny boot upon discharge to continue offloading left heel at home. Alternatively, pt can float left heel off surfaces at home by placing pillows behind left calf. ?? Chronic medical issues Hyperlipidemia: Continue atorvastatin Diabetes mellitus with neuropathy - Can restart home metformin and gabapentin 400 mg 5 times daily upon discharge. Epilepsy - Continue the phenytoin 200 mg qAM and 400 mg qhs Noncardiac chest pain (resolved) Acute diarrhea (resolved) Elevated lactic acid (resolved) Abdominal pain - resolved Constipation - resolved Measurements?? Weight: 143.8 kg (10/04/22) ?? Vital Signs?? Temperature: 98.6 DegF (10/04/22 07:00:00) Temperature Route: Oral (10/04/22 07:00:00) Pulse Rate: 78 bpm (10/04/22 10:29:00) Respiratory Rate: 20 br/min (10/04/22 13:55:00) Systolic Blood Pressure: 115 mm Hg (10/04/22 10:29:00) Diastolic Blood Pressure: 72 mm Hg (10/04/22 10:29:00) Blood pressure sites: Arm, left (10/04/22 07:00:00) Pulse Pressure: 40 mm Hg (10/04/22 07:00:00) Oxygen Saturation: 94 % (10/04/22 07:00:00) Mode of Delivery (Oxygen): Room air (10/04/22 07:00:00) Early Warning Score: 2 (10/04/22 13:58:20) ? . Physical Exam ?General:??Alert, comfortable, interactive ?CV:??Regular rate and rhythm, no murmurs ?Respiratory:??Lungs clear bilaterally, no wheezes, no crackles ?Abdomen:??Soft, nontender, nondistended, bowel sounds ?Extremities/MSK:??Moving all extremities equally, no swelling or erythema ?Skin:??No rash, no jaundice ?Neuro:??Normal tone and strength, moving all extremities, appropriately alert Consultants Psych-?? Andrea WILKINS, Buffy?? ENT- Lida Damico MD Pending Results Add On Lab Order ordered on 10/03/2022 COVID-19 (Novel Coronavirus), Rapid PCR ordered on 10/04/2022 Hold Gel Top Tube ordered on 10/02/2022 Patient Education Titles Diarrhea with Uncertain Cause (Adult)?? Diet for Vomiting or Diarrhea (Adult)?? Treating Diarrhea?? Follow-Up Appointments Added Follow Up ?Time Frame ?Comments Tal WILKINS, Brown Paz?Within two weeks Patient Instructions You came to the hospital due to abdominal pain. ?? What medications??are you??going to be taking? Abilify increased to 7.5mg Dilt decreased to 120mg Daily Imdur decreased to 30mg Daily Decreased Metformin to 500mg Daily for improved BG Decreased Torsemide to 20mg a day ?? To do: -Follow up blood sugars -Follow up Blood pressure Post Discharge Care Activity: as tolerated Wound Care: Wound Site: rt great toe, left lateral heel ??Clean w/NS. Pat dry. Apply 2 layers of Xeroform to open wound bed; cut to fit size of wound. Cover w/gauze and secure w/medipore tape ??Daily??Yes Code Status: ?? Full Resuscitation Prognosis: Good Home Health Face to Face ^HomeHealthFTF Results Discharge Labs BLOOD COUNT & DIFF WBC 7.4 k/mm3 ()?? 10/02/2022 18:34 RBC 4.57 m/mm3 (Low)?? 10/02/2022 18:34 Hgb 9.9 Gm/dL (Low)?? 10/02/2022 18:34 Hct 34.9 % (Low)?? 10/02/2022 18:34 MCV 76.4 femtoliters (Low)?? 10/02/2022 18:34 MCH 21.7 pg (Low)?? 10/02/2022 18:34 MCHC 28.4 g/dL (Low)?? 10/02/2022 18:34 Platelet Count 320 k/mm3 ()?? 10/02/2022 18:34 RDW-SD 48.2 femtoliters (High)?? 10/02/2022 18:34 MPV 9.8 femtoliters ()?? 10/02/2022 18:34 Nucleated RBC (Automated) 0.0 #/100 WBC'S ()?? 10/02/2022 18:34 Abs. NRBC 0.0 k/mm3 ()?? 10/02/2022 18:34 Abs. Neut 3.8 k/mm3 ()?? 09/21/2022 01:19 Abs. Lymph 0.9 k/mm3 ()?? 09/21/2022 01:19 Abs. [place] 0.5 k/mm3 ()?? 09/21/2022 01:19 Abs. Eo 0.1 k/mm3 ()?? 09/21/2022 01:19 Abs. Baso 0.0 k/mm3 ()?? 09/21/2022 01:19 Neut % 72.1 % ()?? 09/21/2022 01:19 Lymph % 16.3 % ()?? 09/21/2022 01:19 [place] % 9.9 % ()?? 09/21/2022 01:19 Eos % 1.3 % ()?? 09/21/2022 01:19 Baso % 0.2 % ()?? 09/21/2022 01:19 Imm Gran 0.2 % ()?? 09/21/2022 01:19 Abs. Imm Gran 0.0 k/mm3 ()?? 09/21/2022 01:19 ?? CARDIAC CK, Total 30 units/L ()?? 09/20/2022 21:35 Nt-Probnp 932 pg/mL (High)?? 08/15/2022 21:03 High Sensitivity Troponin (HSTnT) 31 ng/L (High)?? 10/02/2022 21:00 ? CHEM GENERAL Sodium 138 mmol/L ()?? 10/02/2022 18:34 Potassium 4.4 mmol/L ()?? 10/02/2022 18:34 Chloride 97 mmol/L (Low)?? 10/02/2022 18:34 Bicarbonate Level 29 mmol/L ()?? 10/02/2022 18:34 Anion Gap 12 ()?? 10/02/2022 18:34 Glucose Level 84 mg/dL ()?? 10/02/2022 18:34 Glucose, POC 165 mg/dL (High)?? 10/04/2022 11:24 Hemoglobin A1C (Monitoring) 6.2 % (High)?? 10/02/2022 21:00 BUN 17 mg/dL ()?? 10/02/2022 18:34 Creatinine-Blood 1.0 mg/dL ()?? 10/02/2022 18:34 Estimated GFR Creatinine 86 ML/MIN/1.73 M2 ()?? 10/02/2022 18:34 Calcium 9.2 mg/dL ()?? 10/02/2022 18:34 Calcium, Ionized pH Corrected 1.18 mmol/L ()?? 10/02/2022 18:34 Phosphorus 4.6 mg/dL (High)?? 08/29/2022 14:56 Magnesium 1.6 mg/dL ()?? 08/29/2022 14:56 Protein, Total 7.0 Gm/dL ()?? 10/02/2022 18:34 Albumin 4.2 Gm/dL ()?? 10/02/2022 18:34 AG Ratio 1.5 ()?? 10/02/2022 18:34 Alkaline Phosphatase 118 units/L ()?? 10/02/2022 18:34 Lipase 12 units/L (Low)?? 09/07/2022 10:51 AST (SGOT) 11 units/L ()?? 10/02/2022 18:34 ALT (SGPT) 16 units/L ()?? 10/02/2022 18:34 Bilirubin, Total 0.2 mg/dL ()?? 10/02/2022 18:34 Bilirubin, Direct <0.2 mg/dL ()?? 08/26/2022 15:48 Bilirubin, Indirect Direct bilirubin is less than the measureable limit. Therefore, indirect mg/dL ()?? 08/26/2022 15:48 Vitamin B12 Level 848 pg/mL ()?? 08/16/2022 01:52 Lactate 1.2 mmol/L ()?? 10/04/2022 06:55 ? COAG D-Dimer 0.26 mg/L FEU ()?? 08/17/2022 13:32 ? ENDOCRINE/TUMOR MARKER TSH 1.55 uIU/mL ()?? 08/16/2022 01:52 ? HEME OTHER Hold Lavender Top SPECIMEN DISCARDED AFTER 24 HOURS. ()?? 10/04/2022 06:53 Hold Blue Top SPECIMEN DISCARDED AFTER 4 HOURS. ()?? 08/15/2022 21:03 ?? MISC. CHEMISTRY Hold Gel Top SPECIMEN DISCARDED AFTER 1 WEEK ()?? 10/04/2022 06:53 ? SEROLOGY INF DISEASE C.difficile Toxin Negative. C.Difficile bacterial antigen and toxin not detected. A (N)?? 08/15/2022 22:20 ? STOOL STUDIES GI PCR, Campylobacter NEGATIVE ()?? 08/16/2022 00:45 GI PCR, Plesiomonas shigelloides NEGATIVE ()?? 08/16/2022 00:45 GI PCR, Salmonella NEGATIVE ()?? 08/16/2022 00:45 GI PCR, Vibrio NEGATIVE ()?? 08/16/2022 00:45 GI PCR, Vibrio cholerae NEGATIVE ()?? 08/16/2022 00:45 GI PCR, Yersinia enterocolitica NEGATIVE ()?? 08/16/2022 00:45 GI PCR, Enteroaggregative E coli NEGATIVE ()?? 08/16/2022 00:45 GI PCR, Enteropathogenic E coli NEGATIVE ()?? 08/16/2022 00:45 GI PCR, Enterotoxigenic E coli NEGATIVE ()?? 08/16/2022 00:45 GI PCR, Nezyq-pcdkh-wpurskgnk E coli NEGATIVE ()?? 08/16/2022 00:45 GI PCR, Shigella/Enteroinvasive E coli NEGATIVE ()?? 08/16/2022 00:45 GI PCR, Cryptosporidium NEGATIVE ()?? 08/16/2022 00:45 GI PCR, Cyclospora cayetanensis NEGATIVE ()?? 08/16/2022 00:45 GI PCR, Entamoeba histolytica NEGATIVE ()?? 08/16/2022 00:45 GI PCR, Giardia lamblia NEGATIVE ()?? 08/16/2022 00:45 GI PCR, Adenovirus F 40/41 NEGATIVE ()?? 08/16/2022 00:45 GI PCR, Astrovirus NEGATIVE ()?? 08/16/2022 00:45 GI PCR, Norovirus GI/GII NEGATIVE ()?? 08/16/2022 00:45 GI PCR, Rotavirus A NEGATIVE ()?? 08/16/2022 00:45 GI PCR, Sapovirus NEGATIVE ()?? 08/16/2022 00:45 ?? UA/URINALYSIS Appear/Color, Urine COLORLESS ()?? 09/11/2022 16:30 Clarity CLEAR ()?? 09/11/2022 16:30 Specific [place], Urine 1.006 ()?? 09/11/2022 16:30 pH, Urine 6.0 ()?? 09/11/2022 16:30 Albumin, Urine NEGATIVE ()?? 09/11/2022 16:30 Glucose, Urine NEGATIVE ()?? 09/11/2022 16:30 Ketones, Urine NEGATIVE ()?? 09/11/2022 16:30 Bilirubin, Urine NEGATIVE ()?? 09/11/2022 16:30 Hemoglobin, Urine NEGATIVE ()?? 09/11/2022 16:30 Nitrite, Urine NEGATIVE ()?? 09/11/2022 16:30 Leukocyte, Urine NEGATIVE ()?? 09/11/2022 16:30 Urobilinogen NORMAL mg/dL ()?? 09/11/2022 16:30 WBC's, Urine <1 /HPF ()?? 09/11/2022 16:30 RBC's, Urine NONE SEEN /HPF ()?? 09/11/2022 16:30 Bacteria SLIGHT HPF (Abnormal)?? 08/15/2022 22:20 Squamous Epith <1 /HPF ()?? 08/15/2022 22:20 Hyaline Cast 1 LPF ()?? 09/11/2022 16:30 Mucus SLIGHT /LPF ()?? 09/11/2022 16:30 Culture Indication CULTURE NOT INDICATED ()?? 09/11/2022 16:30 ? VIROLOGY Influenza A PCR NEGATIVE ()?? 08/16/2022 00:40 Influenza B PCR NEGATIVE ()?? 08/16/2022 00:40 RSV PCR NEGATIVE ()?? 08/16/2022 00:40 COVID-19 by RT-PCR NEGATIVE ()?? 08/15/2022 20:58 COVID-19 PCR Specimen Source NASAL ()?? 09/07/2022 09:41 COVID-19 PCR Result NEGATIVE ()?? 09/07/2022 09:41 ? Aldo Noguera??MD MS [place] PGY-2 [facility]??& Madan Fish p.[phone] ?? Patient seen and plan discussed with attending, Dr. Tatum 45??minutes spent on discharge * Aldo Chambers MD: PERFORM Event Display: Discharge/Transfer Note Hospital Authored Date: Per wound care consult ?? His right heel is intact and without any erythema. He does have a right diaz resolved cellulitis. Currently appears with pink, blanchable skin with scattered scabbing a plaque. No active open or draining wounds noted. Right foot with gauze dressing in place. This is removed to reveal on area on hisgreat toe tip. It is blanchable red, intact skin. No drainage noted. States this area tends to heal and then open again, especially if I hit it on something. Sometimes they put a dressing on it justto protect it . Left diaz with resolved scabbing. Left heel with callus and nonblanchable erythema.Once patient offloaded pressure, erythema resolved.?? * Raul BOSS, Alfonso Call: PERFORM Event Display: Patient Education/Instruction Authored Date: [id number] Inpatient Adult Discharge Instructions [address] [address] Name: LEON BRUNER : 1960 Visit: 08/15/2022 19:37:00 Current Date: 10/04/2022 16:43 Account: [id number] Inpatient Adult Discharge Instructions We would like to thank you for allowing us to assist you with your healthcare needs. The following includes patient education materials and information regarding your injury/illness. Our entire staffstrives to provide an excellent experience for our patients and their families. PLEASE ENSURE YOU FOLLOW-UP PER THE INSTRUCTIONS BELOW! ?? YOUR OPINION IS IMPORTANT TO US! Please complete the survey you may receive by mail or email. Your feedback will be used to make improvements to the healthcare experiences of our patients and their families. Surveys are administered by [email or web address] ?? If further treatment with your primary care physician or another doctor is recommended, it is important for you to keep the appointment. Call your primary care physician or return to the Emergency Department immediately if your condition worsens, fails to improve, or new symptoms develop. If you need to find a doctor, you can call [facility] for a referral at [phone] or toll free at [phone]) or log in to [email or web address].. ?? You can view and manage your care through the patient portal or by using a health care veto of your choosing. [employer] is a website that allows you to securely view your medical information including your hospital discharge summary, office visit summaries, medications and follow-up visits. You can also request appointments, renew medications, and request access to your medical information using a health care veto of your choosing, or just ask a question. You can enroll at [email or web address] or register during your next office visit. You have been discharged from [facility], Patient Care Unit: W4. If you have any questions regarding these instructions after you leave, please call us and we will be happy to assist you. [facility] Your Care Team Attending Physician Deepti WILKINS, Elly Julian Consulting Providers Es WILKINS, Nitin Roman; Andrea WILKINS, Buffy Discharging Providers Toña WILKINS, Jelly Reason for Your Visit recent admission at [facility] [place] treated for UTI-- diarrhea and weakness. Your Diagnosis Acute diarrhea Diarrhea Rapid atrial fibrillation Paroxysmal A-fib Volume depletion Chronic heart failure with preserved ejection fraction (HFpEF) Acquired lymphedema of leg Chronic widespread pain disorder Diabetes mellitus with neuropathy Epilepsy History of COVID-19 Hyperlipidemia Hypertension Non-insulin dependent type 2 diabetes mellitus Mood disorder NOS Obstructive sleep apnea Painful peripheral neuropathy - NOS Non-pressure chronic ulcer of other part of right foot with fat layer exposed Pressure injury of deep tissue of left heel Pressure ulcer of left heel, stage 2 Ulcer of foot due to diabetes Tests Performed Below is a partial list of the tests performed during your hospitalization. You may have had other tests and procedures not included in this list. Please discuss all test results with your provider. Albumin Level Alk Phos ALT AST B Type Natriuretic Peptide Basic Metabolic Panel Bilirubin Total + Direct BUN C. difficile Rapid Toxin Assay CBC CBC w/ Differential CK Total Only CK w/ Reflex CKMB Comprehensive Metabolic Panel COVID-19 (2019 Novel Coronavirus) PCR COVID-19 (NOVEL CORONAVIRUS), PCR COVID-19, RSV, and Flu A/B, Rapid PCR CPK w/ Reflex CKMB Creatinine D Dimer Electrolytes GI Profile, Stool, PCR GLUCOSE POC HEMOGLOBIN A1C High??Sensitivity??Troponin T Hold Blue Top Tube HOLD GEL TUBE HOLD LAVENDER TUBE Ionized Calcium Lactate Level Lactic Acid Level Lipase Magnesium Level Mg Level Phosphorus Level Total Protein Troponin T, High Sensitivity TSH Urinalysis Complete/Reflex Culture VITAMIN B12 CT Abdomen and Pelvis W/O Contrast CXR Portable KUB XR Chest 2 Views Frontal and Lat XR Knee 1 or 2 Views Right XR Shoulder Min 2 Views Left Primary Care Provider Brown Parada MD Advance Directive . Discharge Vitals Temperature: 98.9 DegF Weight: 146 kg Pulse Rate:??98 bpm??High ?? Respiratory Rate: 20 br/min ?? Systolic Blood Pressure: 113 mm Hg ?? Diastolic Blood Pressure: 77 mm Hg ?? Oxygen Saturation: 98 % ?? Studies Pending All tests and labs ordered during this hospital stay have been completed unless listed below. Please discuss all pending results with your provider listed above in these instructions. ?? Add On Lab Order Hold Gel Top Tube (HOLD GEL TUBE) What to do next Instructions From Your Doctor You came to the hospital due to abdominal pain. ?? What medications??are you??going to be taking? Abilify increased to 7.5mg Dilt decreased to 120mg Daily Imdur decreased to 30mg Daily Decreased Metformin to 500mg Daily for improved BG Decreased Torsemide to 20mg a day ?? To do: -Follow up blood sugars -Follow up Blood pressure Discharge Orders Activity:??as tolerated Wound Care:??Wound Site: rt great toe, left lateral heel Clean w/NS. Pat dry. Apply 2 layers of Xeroform to open wound bed; cut to fit size of wound. Cover w/gauze and secure w/medipore tape Daily Yes Code Status:?? Full Resuscitation Prognosis:??Good You Need to Schedule the Following Appointments Follow Up with??Brown Parada MD When??Within Within two weeks Where: ?? Discharge Medications LEON BRUNER :1960 Visit Date:08/15/2022 Medications: Please continue your medications until treatment is completed or stopped by your provider. Medications not listed below should be discontinued. Discuss any questions related to medications with your provider. What How Much When Instructions Next Dose New Aripiprazole (Abilify 5 mg oral tablet) 1.5 tab(s) Oral Daily in the morning am New Ferrous Sulfate (ferrous sulfate 325 mg oral enteric coated tablet) 325 Milligram Oral Tuesday, Tuesday and Pedro am wed Changed Diltiazem (diltiazem 120 mg/ 24 hours oral capsule, extended release) 1 capsule Oral Daily before lunch 10/05 Changed Metformin (metFORMIN 1000 mg oral tablet) 0.5 tab(s) Oral Daily am Changed torsemide (torsemide 20 mg oral tablet) 1 tab(s) Oral Daily am Unchanged Albuterol (albuterol CFC free 90 mcg/ inh inhalation aerosol) 2 puff(s) Inhalation Every 4 hours as needed for Wheezing/Shortness of Breath prn Unchanged apixaban (Eliquis 5 mg oral tablet) 1 tab(s) Oral Twice a day pm Unchanged Atorvastatin (Lipitor 80 mg oral tablet) 1 tab(s) Oral Daily am Unchanged Duloxetine (Cymbalta 30 mg oral enteric coated capsule) 2 capsule Oral Twice a day am Unchanged Durable Medical Equipment (Bariatric wheelchair with standard leg rests) See instructions 22 x 16 standard bariatric wheelchair wt 157.7 ht 191 cm Dx: G89.4, 189, E66.01, 127.20 nessa 99 MO ?? Unchanged Durable Medical Equipment (Deltec Cozmo Glucometer) See instructions check blood sugar levels before meals every day 3 times a day and at bedtime. ?? Unchanged Durable Medical Equipment (FreeStyle Christin 2 Monitor) See instructions DM 2 E11.9 ?? Unchanged Durable Medical Equipment (FreeStyle Christin 2 Sensors) See instructions E11.9 DM2 ?? Unchanged Durable Medical Equipment (Insulin Syringe, BD Ultra-Fine 0.3 cc 31 G x 8 mm (5 16in)) See instructions Duration: 30 Days use as directed for Type 2 Diabetes Mellitus ?? Unchanged Durable Medical Equipment (One Touch Fine Point Lancets) See instructions Duration: 30 Days use as directed for Type 2 Diabetes Mellitus ?? Unchanged Fluticasone Nasal (Flonase 50 mcg/ inh nasal spray) 1 spray(s) Nares, Both Twice a day pm Unchanged Gabapentin (gabapentin 400 mg oral capsule) 1 capsule Oral 5 times a day HOLD FOR SEDATION. ?? 1800 Unchanged HydrOXYzine (hydrOXYzine hydrochloride 25 mg oral tablet) 1 tab(s) Oral 3 times a day 1700 Unchanged Insulin Lispro (insulin lispro 100 u/ ml subcutaneous injection) 0 unit(s) Subcutaneous Injection 3 times a day before meals <150: zero insulin, ??151-200: 2 units, 201-250: 4 units, 251-300: 6 units, 301- 350: 8 units, > 350: 10 units & Call PCP ?? Unchanged Loperamide (loperamide 2 mg oral tablet) 1 tab(s) Oral Every 4 hours as needed for NEEDED FOR LOOSE STOOL prn Unchanged Lorazepam (LORazepam 2 mg oral tablet) 1 tab(s) Oral 3 times a day as needed for for anxiety prn Unchanged Metoprolol (Metoprolol Succinate ER 50 mg oral tablet, extended release) 1 tab(s) Oral Daily am Unchanged nalOXONE (Narcan 4 mg/ 0.1 mL nasal spray) 4 Milligram Naris, Left Once as needed for overdose Unchanged Oxycodone (oxyCODONE 5 mg oral tablet) 1 tab(s) Oral Twice a day as needed for Pain , Severe Dx: Chronic widespread pain syndrome; may fill for less than full amount APPOINTMENT NEEDED FOR ADDITIONAL REFILLS ?? 2am Unchanged Pantoprazole (pantoprazole 40 mg oral delayed release tablet) 1 tab(s) Oral Daily am Unchanged Phenytoin (phenytoin 100 mg oral capsule, extended release) See instructions TAKE 2 CAPSULES BY MOUTH IN THE MORNING (THIS IS A DOSE INCREASE ) & TAKE 4 CAPSULES IN THE EVENING ?? pm Unchanged Quetiapine (QUEtiapine 100 mg oral tablet) TAKE ONE TABLET BY MOUTH EVERY DAY AT BEDTIME NEEDED FOR SLEEP, MAY TAKE 1 EXTRA TABLET NEEDED FOR INSOMNIA ?? pm Unchanged Quetiapine (QUEtiapine 200 mg oral tablet) 1 tab(s) TAKE ONE TABLET BY MOUTH TWICE A DAY ?? pm Unchanged Trazodone (traZODone 50 mg oral tablet) 2 tab(s) Oral Daily at Bedtime as needed for Sleep TAKE 2 TABLETS BY MOUTH EVERY NIGHT. ?? pm ?? What How Much When Comments Stop Taking Aspirin (aspirin 81 mg oral delayed release tablet) 81 Milligram Oral Daily Stop Taking Cholecalciferol (Vitamin D3 2000 intl units oral tablet) 1 tab(s) Oral Daily Stop Taking Doxazosin (doxazosin 2 mg oral tablet) TAKE TWO TABLETS BY MOUTH AT BEDTIME ?? Stop Taking empagliflozin (Jardiance 10 mg oral tablet) 1 tab(s) Oral Daily in the morning Stop Taking Finasteride (finasteride 5 mg oral tablet) TAKE 1 TABLET BY MOUTH DAILY. ?? Stop Taking Isosorbide Mononitrate (Imdur 60 mg oral tablet, extended release) 60 Milligram Oral Daily in the morning Stop Taking Magnesium Oxide (magnesium oxide 400 mg oral tablet) 1 tab(s) Oral Daily Duration: 14 Days Stop Taking Miscellaneous Rx (NURSING ORDERS) See instructions LEFT ANKLE WOUND-CLEANSE NS, APPLY SILVADENE, DCD DAILY OR NURSING TO REC TX. DM II MONITORING AND COMMUNICATE SUGARS WITH PCP TO TITRATE LANTUS. [phone] ?? Test Results Below is a partial list of the most recent Laboratory test results done prior to this discharge. You may have had other tests and procedures not included in this list. Please discuss all test resultswith your provider. Albumin Level (08/26/2022) ???Albumin - 3.8 Gm/dL Alk Phos (08/26/2022) ???Alkaline Phosphatase - 136 units/L ALT (08/26/2022) ???ALT (SGPT) - 15 units/L AST (08/26/2022) ???AST (SGOT) - 19 units/L B Type Natriuretic Peptide (08/15/2022) ???Nt-Probnp - 932 pg/mL Basic Metabolic Panel (09/21/2022) ???Sodium - 137 mmol/L???Potassium - 4.6 mmol/L???Chloride - 97 mmol/L???Bicarbonate Level - 28 mmol/L???Anion Gap - 12???Glucose Level - 154 mg/dL???BUN - 16 mg/dL???Creatinine-Blood - 0.9 mg/dL???Estimated GFR Creatinine - 96 ML/MIN/1.73 M2???Calcium - 9.2 mg/dL Bilirubin Total + Direct (08/26/2022) ? ?Bilirubin, Total - 0.3 mg/dL? ?Bilirubin, Direct - <0.2 mg/dL? ?Bilirubin, Indirect - Direct bilirubin is less than the measureable limit. Therefore, indirect BUN (09/14/2022) ???BUN - 13 mg/dL C. difficile Rapid Toxin Assay (08/15/2022) ???C.difficile Toxin - Negative. C.Difficile bacterial antigen and toxin not detected. A CBC (10/02/2022) ???WBC - 7.4 k/mm3???RBC - 4.57 m/mm3???Hgb - 9.9 Gm/dL???Hct - 34.9 %???MCV - 76.4 femtoliters???MCH - 21.7 pg???MCHC - 28.4 g/dL???Platelet Count - 320 k/mm3???RDW-SD - 48.2 femtoliters???MPV - 9.8femtoliters???Nucleated RBC (Automated) - 0.0 #/100 WBC'S???Abs. NRBC - 0.0 k/mm3 CBC w/ Differential (09/21/2022) ???WBC - 5.3 k/mm3???RBC - 4.26 m/mm3???Hgb - 9.4 Gm/dL???Hct - 33.3 %???MCV - 78.2 femtoliters???MCH - 22.1 pg???MCHC - 28.2 g/dL???Platelet Count - 332 k/mm3???RDW-SD - 53.5 femtoliters???MPV - 10.2 femtoliters???Nucleated RBC (Automated) - 0.0 #/100 WBC'S???Abs. NRBC - 0.0 k/mm3???Abs. Neut - 3.8 k/mm3???Abs. Lymph - 0.9 k/mm3???Abs. [place] - 0.5 k/mm3???Abs. Eo - 0.1 k/mm3???Abs. Baso - 0.0 k/mm3???Neut % - 72.1 %???Lymph % - 16.3 %???[place] % - 9.9 %???Eos % - 1.3 %???Baso % - 0.2 %???Imm Gran- 0.2 %???Abs. Imm Gran - 0.0 k/mm3 CK Total Only (08/17/2022) ???CK, Total - 33 units/L CK w/ Reflex CKMB (09/20/2022) ???CK, Total - 30 units/L Comprehensive Metabolic Panel (10/02/2022) ???Sodium - 138 mmol/L???Potassium - 4.4 mmol/L???Chloride - 97 mmol/L???Bicarbonate Level - 29 mmol/L???Anion Gap - 12???Glucose Level - 84 mg/dL???BUN - 17 mg/dL???Creatinine-Blood - 1.0 mg/dL???Estimated GFR Creatinine - 86 ML/MIN/1.73 M2???Calcium - 9.2 mg/dL???Protein, Total - 7.0 Gm/dL???Albumin - 4.2 Gm/dL???AG Ratio - 1.5???Alkaline Phosphatase - 118 units/L???AST (SGOT) - 11 units/L???ALT (SGPT) - 16 units/L???Bilirubin, Total - 0.2 mg/dL COVID-19 (2019 Novel Coronavirus) PCR (09/07/2022) ???COVID-19 PCR Specimen Source - NASAL???COVID-19 PCR Result - NEGATIVE COVID-19 (NOVEL CORONAVIRUS), PCR (10/04/2022) ???COVID-19 by RT-PCR - NEGATIVE COVID-19, RSV, and Flu A/B, Rapid PCR (08/16/2022) ???Influenza A PCR - NEGATIVE???Influenza B PCR - NEGATIVE???RSV PCR - NEGATIVE???COVID-19 PCR Specimen Source - NASAL???COVID-19 PCR Result - NEGATIVE CPK w/ Reflex CKMB (08/17/2022) ???CK, Total - 33 units/L Creatinine (09/14/2022) ???Creatinine-Blood - 0.8 mg/dL???Estimated GFR Creatinine - 98 ML/MIN/1.73 M2 D Dimer (08/17/2022) ???D-Dimer - 0.26 mg/L FEU Electrolytes (09/14/2022) ???Sodium - 140 mmol/L???Potassium - 4.5 mmol/L???Chloride - 99 mmol/L???Bicarbonate Level - 34 mmol/L???Anion Gap - 7 GI Profile, Stool, PCR (08/16/2022) ???GI PCR, Campylobacter - NEGATIVE???GI PCR, Plesiomonas shigelloides - NEGATIVE???GI PCR, Salmonella - NEGATIVE???GI PCR, Vibrio - NEGATIVE???GI PCR, Vibrio cholerae - NEGATIVE???GI PCR, Yersinia enterocolitica - NEGATIVE???GI PCR, Enteroaggregative E coli - NEGATIVE???GI PCR, Enteropathogenic E coli - NEGATIVE???GI PCR, Enterotoxigenic E coli - NEGATIVE???GI PCR, Ungdd-tjonn-knwkqqpex E coli -NEGATIVE???GI PCR, Shigella/Enteroinvasive E coli - NEGATIVE???GI PCR, Cryptosporidium - NEGATIVE???GI PCR, Cyclospora cayetanensis - NEGATIVE???GI PCR, Entamoeba histolytica - NEGATIVE???GI PCR, Giardia lamblia - NEGATIVE???GI PCR, Adenovirus F 40/41 - NEGATIVE???GI PCR, Astrovirus - NEGATIVE???GIPCR, Norovirus GI/GII - NEGATIVE???GI PCR, Rotavirus A - NEGATIVE???GI PCR, Sapovirus - NEGATIVE GLUCOSE POC (10/04/2022) ???Glucose, POC - 165 mg/dL HEMOGLOBIN A1C (10/02/2022) ???Hemoglobin A1C (Monitoring) - 6.2 % High??Sensitivity??Troponin T (08/15/2022) ???High Sensitivity Troponin (HSTnT) - 38 ng/L Hold Blue Top Tube (08/15/2022) ???Hold Blue Top - SPECIMEN DISCARDED AFTER 4 HOURS. HOLD GEL TUBE (10/04/2022) ???Hold Gel Top - SPECIMEN DISCARDED AFTER 1 WEEK HOLD LAVENDER TUBE (10/04/2022) ???Hold Lavender Top - SPECIMEN DISCARDED AFTER 24 HOURS. Ionized Calcium (10/02/2022) ???Calcium, Ionized pH Corrected - 1.18 mmol/L Lactate Level (10/04/2022) ???Lactate - 1.2 mmol/L Lactic Acid Level (08/15/2022) ???Lactate - 1.7 mmol/L Lipase (09/07/2022) ???Lipase - 12 units/L Magnesium Level (08/26/2022) ???Magnesium - 1.5 mg/dL Mg Level (08/29/2022) ???Magnesium - 1.6 mg/dL Phosphorus Level (08/29/2022) ???Phosphorus - 4.6 mg/dL Total Protein (08/26/2022) ???Protein, Total - 6.7 Gm/dL Troponin T, High Sensitivity (10/02/2022) ???High Sensitivity Troponin (HSTnT) - 31 ng/L TSH (08/16/2022) ???TSH - 1.55 uIU/mL Urinalysis Complete/Reflex Culture (09/11/2022) ???Appear/Color, Urine - COLORLESS???Clarity - CLEAR???Specific [place], Urine - 1.006???pH, Urine - 6.0???Albumin, Urine - NEGATIVE???Glucose, Urine - NEGATIVE???Ketones, Urine - NEGATIVE???Bilirubin, Urine - NEGATIVE???Hemoglobin, Urine - NEGATIVE???Nitrite, Urine - NEGATIVE???Leukocyte, Urine - NEGATIVE? ?Urobilinogen - NORMAL? ?WBC's, Urine - <1 /HPF? ?RBC's, Urine - NONE SEEN? ?Hyaline Cast - 1 LPF???Mucus - SLIGHT???Culture Indication - CULTURE NOT INDICATED VITAMIN B12 (08/16/2022) ???Vitamin B12 Level - 848 pg/mL Allergies (NKA means No Known Allergies) Bee Stings Contrast Dye??(urticaria) Latex??(anaphylaxis) antivenin (black spider) clindamycin??(Hives) penicillin??(rash) Problems Active Problems??(28) Acquired lymphedema of leg?? Chronic diarrhea?? Chronic widespread pain disorder?? Diabetes mellitus with neuropathy?? Epilepsy?? Heart failure with preserved left ventricular function (HFpEF)?? History of COVID-19?? History of pericarditis?? History of TIA (transient ischemic attack)?? History of urinary tract infection?? Hyperglycemia?? Hyperlipidemia?? Hypertension?? Iron deficiency anemia?? Limited mobility?? half-way prescription benzodiazepine use?? Long-term current use of anticonvulants ??(phenytoin and oxcarbazepine)?? Mood disorder NOS?? Morbid obesity with BMI of 50.0-59.9, adult?? Multiple complaints?? Non-insulin dependent type 2 diabetes mellitus?? Obstructive sleep apnea?? Painful peripheral neuropathy - NOS?? Paroxysmal A-fib?? Pericarditis?? PTSD - Post-traumatic stress disorder?? Pulmonary hypertension?? Severe obesity?? Education Materials Below is the list of Educational Leaflet Providered with your Discharge Instructions. Diarrhea with Uncertain Cause (Adult)?? Diet for Vomiting or Diarrhea (Adult)?? Treating Diarrhea?? Valuables and Belongings I fully understand and agree that [facility] accepts no responsibility for all my personal property including clothing, toilet articles, radios, jewelry, dentures, hearing aids, rings, money, or any other property that is in my possession or is brought to me after admission. I understand certain valuables may be placed in a hospital safe for a short period of time. I understand that the hospital is not liable for loss or damage due to accident, fire, or other natural occurrence while said property is in the safe. I accept full responsibility for any personal property that I keep with me, and will not hold the hospital responsible in case of loss or disappearance. I acknowledge that i have been encouraged to send valuables and belongings home. ?? No Valuables/Belongings: No valuables/belongings present Review of Valuable and Belonging List: With patient Date for Pt to Sign Valuables/Belongings: 09/01/22 11:09:00 ?? Other Discharge Information ?? Wound Assessment?? Wound Assessment?? Wound Location I: Great toe, right Wound Type I: Diabetic foot ulcer Wound I, Present on Admission: Yes Wound Location II: Heel, left Wound Location III: Great toe, right ?? Case Management Discharge Plan?? Discharge Plan?? Discharge Agency Information?? Discharge Level of Care at Discharge: Psychiatric Facility/Unit Agency Staff Radiation Therapist #1: intake Discharge Nursing Homes/Rehab Facilities: [facility] Service Categories #1: Physical Therapy, Detention Discharge VNA/Hospice/Home Care: [facility], [place] Adults [phone] Service Comments #1: the visiting nurse staff will call to set up a time to see you at home 1-2 days after discharge ?? Pulmonary Rehab Status?? Pulmonary Rehab Discharge Status?? CPAP/BiPAP Mask Type: Full CPAP/BiPAP Mask Size: Large Respiratory Rate: 20 br/min ? Common Emergency Awareness Tips IS IT A STROKE? Act FAST and Check for these signs: FACE Does the face look uneven? ARM Does one arm drift down? SPEECH Does their speech sound strange? TIME Call at any sign of stroke ?? Heart Attack Signs Chest discomfort: Most heart attacks involve discomfort in the center of the chest and lasts more than a few minutes, or goes away and comes back. It can feel like uncomfortable pressure, squeezing, fullness or pain. Discomfort in upper body: Symptoms can include pain or discomfort in one or both arms, back, neck, jaw or stomach. Shortness of breath: With or without discomfort. Other signs: Breaking out in a cold sweat, nausea, or lightheaded. Remember, MINUTES DO MATTER. If you experience any of these heart attack warning signs, call to get immediate medical attention! ?? Smoking can increase your chances of developing chronic health problems and can cause harmful effects to other family members in your house. If you smoke, you are strongly encouraged to quit. Please call [facility] Link at [phone] or [phone] ([phone]) or log in to [email or web address] for referrals to smoking cessation programs. ?? 552 Suicide & Crisis Lifeline is available 27/12 if you or someone you know needs to find a reason to keep living. By calling 324 you'll be connected to a skilled, trained counselor at a crisis center in your area. INPATIENT DISCHARGE INSTRUCTIONS SIGNATURE PAGE LEON BRUNER Location:[facility] Registration Date and Time:08/15/2022 19:37 EDT Primary Care Physician: Tal WILKINS, Brown Paz, I LEON BRUNER, have received the above patient education materials/instructions and have verbalized understanding. If ambulance or transport services are being used I further acknowledge beinggiven a choice of service. ?? If you need to contact me, please call me at this number: . Patient/Hydraulic Controls Technician Name: Patient/Hydraulic Controls Technician Signature: Relationship to Patient: Witness Name/Signature: Date: * Event Display: Cardiac Rhythm Strips Authored Date: * Event Display: Cardiac Rhythm Strips Authored Date: * Event Display: Cardiac Rhythm Strips Authored Date: * Elvia Stanford RN: PERFORM, SIGN, VERIFY Event Display: Case Management Discharge Plan Authored Date: Patient: LEON BRUNER Age: 62 years Sex: Male : 1960 Associated Diagnoses: None Author: Elvia Stanford RN Discharge Plan Case Management Discharge Plan : Case Management Discharge Plan Data 08/18/2022 12:22 EDT Discharge Level of Care at Discharge Homehealth/VNA Discharge VNA/Hospice/Home Care [facility], [place] Adults [phone] Agency Staff Radiation Therapist #1 intake Service Categories #1 Physical Therapy, Detention Service Comments #1 the visiting nurse staff will call to set up a time to see you at home 1-2 daysafter discharge * Malika Hamlin RN: PERFORM Event Display: Patient Education/Instruction Authored Date: [id number] Inpatient Adult Discharge Instructions [address] [address] Name: LEON BRUNER : 1960 Visit: 08/15/2022 19:37:00 Current Date: 08/18/2022 15:03 Account: [id number] Inpatient Adult Discharge Instructions We would like to thank you for allowing us to assist you with your healthcare needs. The following includes patient education materials and information regarding your injury/illness. Our entire staffstrives to provide an excellent experience for our patients and their families. PLEASE ENSURE YOU FOLLOW-UP PER THE INSTRUCTIONS BELOW! ?? YOUR OPINION IS IMPORTANT TO US! Please complete the survey you may receive by mail or email. Your feedback will be used to make improvements to the healthcare experiences of our patients and their families. Surveys are administered by [email or web address], [email or web address]. ?? If further treatment with your primary care physician or another doctor is recommended, it is important for you to keep the appointment. Call your primary care physician or return to the Emergency Department immediately if your condition worsens, fails to improve, or new symptoms develop. If you need to find a doctor, you can call [facility] for a referral at [phone] or toll free at [phone]) or log in to [email or web address].. ?? You can view and manage your care through the patient portal or by using a health care veto of your choosing. [employer] is a website that allows you to securely view your medical information including your hospital discharge summary, office visit summaries, medications and follow-up visits. You can also request appointments, renew medications, and request access to your medical information using a health care veto of your choosing, or just ask a question. You can enroll at [email or web address] or register during your next office visit. You have been discharged from [facility], Patient Care Unit: S3. If you have any questions regarding these instructions after you leave, please call us and we will be happy to assist you. [facility] Your Care Team Attending Physician Lucy WILKINS, Fredis Discharging Providers Anthony ORTEGA, Faye Cuenca Reason for Admission recent admission at [facility] treated for UTI-- diarrhea and weakness. Your Diagnosis Rapid atrial fibrillation Volume depletion Chronic heart failure with preserved ejection fraction (HFpEF) Acquired lymphedema of leg Chronic widespread pain disorder Diabetes mellitus with neuropathy Epilepsy History of COVID-19 Hyperlipidemia Hypertension Non-insulin dependent type 2 diabetes mellitus Mood disorder NOS Obstructive sleep apnea Paroxysmal A-fib Painful peripheral neuropathy - NOS Acute diarrhea Ulcer of foot due to diabetes Non-pressure chronic ulcer of other part of right foot with fat layer exposed Pressure ulcer of left heel, stage 2 Pressure injury of deep tissue of left heel Tests Performed Below is a partial list of the tests performed during your hospitalization. You may have had other tests and procedures not included in this list. Please discuss all test results with your provider. B Type Natriuretic Peptide Basic Metabolic Panel BUN C. difficile Rapid Toxin Assay CBC CBC w/ Differential CK Total Only COVID-19 (2019 Novel Coronavirus) PCR COVID-19 (Novel Coronavirus), Rapid PCR COVID-19, RSV, and Flu A/B, Rapid PCR CPK w/ Reflex CKMB Creatinine D Dimer Electrolytes GI Profile, Stool, PCR GLUCOSE POC HEMOGLOBIN A1C High??Sensitivity??Troponin T Hold Blue Top Tube Ionized Calcium Lactic Acid Level Lipase Magnesium Level Phosphorus Level Troponin T, High Sensitivity TSH Urinalysis Complete/Reflex Culture VITAMIN B12 CT Abdomen and Pelvis W/O Contrast XR Chest 2 Views Frontal and Lat Primary Care Provider Brown Parada MD Advance Directive Health Care Proxy on File Yes - Health Care Proxy Discharge Vitals Temperature: 98 DegF Pulse Rate: 84 bpm Respiratory Rate: 18 br/min Systolic Blood Pressure: 102 mm Hg Diastolic Blood Pressure: 57 mm Hg Oxygen Saturation:??93 %??Low Studies Pending All tests and labs ordered during this hospital stay have been completed unless listed below. Please discuss all pending results with your provider listed above in these instructions. ?? Add On Lab Order Blood Culture Blood Culture #2 CBC What to do next Instructions From Your Doctor Discharge Orders Activity:??as tolerated Wound Care:??Wound Site: rt great toe, left lateral heel Clean w/NS. Pat dry. Apply 2 layers of Xeroform to open wound bed; cut to fit size of wound. Cover w/gauze and secure w/medipore tape Daily Yes Code Status:?? Full Resuscitation Prognosis:??Good You Need to Schedule the Following Appointments Follow Up with??Brown Parada MD When??Within Within two weeks Where: ?? Discharge Medications LEON BRUNER :1960 Visit Date:08/15/2022 Medications: Please continue your medications until treatment is completed or stopped by your provider. Medications not listed below should be discontinued. Discuss any questions related to medications with your provider. What How Much When Instructions Next Dose Unchanged Albuterol (albuterol CFC free 90 mcg/ inh inhalation aerosol) 2 puff(s) Inhalation Every 4 hours as needed for Wheezing/Shortness of Breath as prescribed Unchanged apixaban (Eliquis 5 mg oral tablet) 1 tab(s) Oral Twice a day 08/18?? PM Unchanged Atorvastatin (Lipitor 80 mg oral tablet) 1 tab(s) Oral Daily 08/19?? AM Unchanged Diltiazem (Cardizem CD 360 mg/ 24 hours oral capsule, extended release) 1 capsule Oral Daily 08/19?? AM Unchanged Duloxetine (Cymbalta 30 mg oral enteric coated capsule) 2 capsule Oral Twice a day 08/18?? PM Unchanged Durable Medical Equipment (Bariatric wheelchair with standard leg rests) See instructions 22 x 16 standard bariatric wheelchair wt 157.7 ht 191 cm Dx: G89.4, 189, E66.01, 127.20 nessa 99 MO ?? Unchanged Durable Medical Equipment (Deltec Cozmo Glucometer) See instructions check blood sugar levels before meals every day 3 times a day and at bedtime. ?? Unchanged Durable Medical Equipment (FreeStyle Christin 2 Monitor) See instructions DM 2 E11.9 ?? Unchanged Durable Medical Equipment (FreeStyle Christin 2 Sensors) See instructions E11.9 DM2 ?? Unchanged Durable Medical Equipment (Insulin Syringe, BD Ultra-Fine 0.3 cc 31 G x 8 mm (5 16in)) See instructions Duration: 30 Days use as directed for Type 2 Diabetes Mellitus ?? Unchanged Durable Medical Equipment (One Touch Fine Point Lancets) See instructions Duration: 30 Days use as directed for Type 2 Diabetes Mellitus ?? Unchanged Fluticasone Nasal (Flonase 50 mcg/ inh nasal spray) 1 spray(s) Nares, Both Twice a day 08/18?? PM Unchanged Gabapentin (gabapentin 400 mg oral capsule) 1 capsule Oral 5 times a day HOLD FOR SEDATION. ?? 08/18?? 6 PM Unchanged HydrOXYzine (hydrOXYzine hydrochloride 25 mg oral tablet) 1 tab(s) Oral 3 times a day as prescribed Unchanged Insulin Lispro (insulin lispro 100 u/ ml subcutaneous injection) 0 unit(s) Subcutaneous Injection 3 times a day before meals <150: zero insulin, ??151-200: 2 units, 201-250: 4 units, 251-300: 6 units, 301- 350: 8 units, > 350: 10 units & Call PCP ?? as prescribed Unchanged Isosorbide Mononitrate (Imdur 60 mg oral tablet, extended release) 60 Milligram Oral Daily in the morning 08/19?? AM Unchanged Loperamide (loperamide 2 mg oral tablet) 1 tab(s) Oral Every 4 hours as needed for NEEDED FOR LOOSE STOOL as prescribed Unchanged Lorazepam (LORazepam 2 mg oral tablet) 1 tab(s) Oral 3 times a day as needed for for anxiety as prescribed Unchanged Metformin (metFORMIN 1000 mg oral tablet) 1 tab(s) Oral Daily as prescribed Unchanged Metoprolol (Metoprolol Succinate ER 50 mg oral tablet, extended release) 1 tab(s) Oral Daily 08/19?? AM Unchanged nalOXONE (Narcan 4 mg/ 0.1 mL nasal spray) 4 Milligram Naris, Left Once as needed for overdose as prescribed Unchanged Oxycodone (oxyCODONE 5 mg oral tablet) 1 tab(s) Oral Twice a day as needed for Pain , Severe Dx: Chronic widespread pain syndrome; may fill for less than full amount APPOINTMENT NEEDED FOR ADDITIONAL REFILLS ?? as prescribed Unchanged Pantoprazole (pantoprazole 40 mg oral delayed release tablet) 1 tab(s) Oral Daily 08/19?? AM Unchanged Phenytoin (phenytoin 100 mg oral capsule, extended release) See instructions TAKE 2 CAPSULES BY MOUTH IN THE MORNING (THIS IS A DOSE INCREASE ) & TAKE 4 CAPSULES IN THE EVENING ?? 08/18?? PM Unchanged Quetiapine (QUEtiapine 100 mg oral tablet) TAKE ONE TABLET BY MOUTH EVERY DAY AT BEDTIME NEEDED FOR SLEEP, MAY TAKE 1 EXTRA TABLET NEEDED FOR INSOMNIA ?? 08/18?? PM if needed Unchanged Quetiapine (QUEtiapine 200 mg oral tablet) 1 tab(s) TAKE ONE TABLET BY MOUTH TWICE A DAY ?? 08/18?? PM Unchanged torsemide (torsemide 20 mg oral tablet) 2 tab(s) Oral Daily as prescribed Unchanged Trazodone (traZODone 50 mg oral tablet) 2 tab(s) Oral Daily at Bedtime as needed for Sleep TAKE 2 TABLETS BY MOUTH EVERY NIGHT. ?? as prescribed ?? What How Much When Comments Stop Taking Aspirin (aspirin 81 mg oral delayed release tablet) 81 Milligram Oral Daily Stop Taking Cholecalciferol (Vitamin D3 2000 intl units oral tablet) 1 tab(s) Oral Daily Stop Taking Doxazosin (doxazosin 2 mg oral tablet) TAKE TWO TABLETS BY MOUTH AT BEDTIME ?? Stop Taking empagliflozin (Jardiance 10 mg oral tablet) 1 tab(s) Oral Daily in the morning Stop Taking Finasteride (finasteride 5 mg oral tablet) TAKE 1 TABLET BY MOUTH DAILY. ?? Stop Taking Magnesium Oxide (magnesium oxide 400 mg oral tablet) 1 tab(s) Oral Daily Duration: 14 Days Stop Taking Miscellaneous Rx (NURSING ORDERS) See instructions LEFT ANKLE WOUND-CLEANSE NS, APPLY SILVADENE, DCD DAILY OR NURSING TO REC TX. DM II MONITORING AND COMMUNICATE SUGARS WITH PCP TO TITRATE LANTUS. [phone] ?? Test Results Below is a partial list of the most recent Laboratory test results done prior to this discharge. You may have had other tests and procedures not included in this list. Please discuss all test resultswith your provider. B Type Natriuretic Peptide (08/15/2022) ???Nt-Probnp - 932 pg/mL Basic Metabolic Panel (08/18/2022) ???Sodium - 137 mmol/L???Potassium - 4.3 mmol/L???Chloride - 100 mmol/L???Bicarbonate Level - 26 mmol/L???Anion Gap - 11???Glucose Level - 146 mg/dL???BUN - 7 mg/dL???Creatinine-Blood - 0.8 mg/dL???Estimated GFR Creatinine - 100 ML/MIN/1.73 M2???Calcium - 9.1 mg/dL BUN (08/17/2022) ???BUN - 7 mg/dL C. difficile Rapid Toxin Assay (08/15/2022) ???C.difficile Toxin - Negative. C.Difficile bacterial antigen and toxin not detected. A CBC (08/18/2022) ???WBC - 4.7 k/mm3???RBC - 3.95 m/mm3???Hgb - 8.9 Gm/dL???Hct - 31.2 %???MCV - 79.0 femtoliters???MCH - 22.5 pg???MCHC - 28.5 g/dL???Platelet Count - 354 k/mm3???RDW-SD - 53.0 femtoliters???MPV - 10.3 femtoliters???Nucleated RBC (Automated) - 0.0 #/100 WBC'S???Abs. NRBC - 0.0 k/mm3 CBC w/ Differential (08/15/2022) ???WBC - 8.4 k/mm3???RBC - 4.55 m/mm3???Hgb - 10.3 Gm/dL???Hct - 35.7 %???MCV - 78.5 femtoliters???MCH - 22.6 pg???MCHC - 28.9 g/dL???Platelet Count - 439 k/mm3???RDW-SD - 52.6 femtoliters???MPV - 10.2 femtoliters???Nucleated RBC (Automated) - 0.0 #/100 WBC'S???Abs. NRBC - 0.0 k/mm3???Abs. Neut - 6.8 k/mm3???Abs. Lymph - 0.9 k/mm3???Abs. [place] - 0.6 k/mm3???Abs. Eo - 0.0 k/mm3???Abs. Baso - 0.0 k/mm3???Neut % - 80.9 %???Lymph % - 11.1 %???[place] % - 7.6 %???Eos % - 0.1 %???Baso % - 0.2 %???Imm Gran - 0.1 %???Abs. Imm Gran - 0.0 k/mm3 CK Total Only (08/17/2022) ???CK, Total - 33 units/L COVID-19 (2019 Novel Coronavirus) PCR (08/16/2022) ???COVID-19 PCR Specimen Source - NASAL???COVID-19 PCR Result - NEGATIVE COVID-19 (Novel Coronavirus), Rapid PCR (08/15/2022) ???COVID-19 by RT-PCR - NEGATIVE COVID-19, RSV, and Flu A/B, Rapid PCR (08/16/2022) ???Influenza A PCR - NEGATIVE???Influenza B PCR - NEGATIVE???RSV PCR - NEGATIVE???COVID-19 PCR Specimen Source - NASAL???COVID-19 PCR Result - NEGATIVE CPK w/ Reflex CKMB (08/17/2022) ???CK, Total - 33 units/L Creatinine (08/17/2022) ???Creatinine-Blood - 0.7 mg/dL???Estimated GFR Creatinine - 105 ML/MIN/1.73 M2 D Dimer (08/17/2022) ???D-Dimer - 0.26 mg/L FEU Electrolytes (08/17/2022) ???Sodium - 136 mmol/L???Potassium - 4.4 mmol/L???Chloride - 100 mmol/L???Bicarbonate Level - 25 mmol/L???Anion Gap - 11 GI Profile, Stool, PCR (08/16/2022) ???GI PCR, Campylobacter - NEGATIVE???GI PCR, Plesiomonas shigelloides - NEGATIVE???GI PCR, Salmonella - NEGATIVE???GI PCR, Vibrio - NEGATIVE???GI PCR, Vibrio cholerae - NEGATIVE???GI PCR, Yersinia enterocolitica - NEGATIVE???GI PCR, Enteroaggregative E coli - NEGATIVE???GI PCR, Enteropathogenic E coli - NEGATIVE???GI PCR, Enterotoxigenic E coli - NEGATIVE???GI PCR, Lmwwk-imqrh-lvrlluklm E coli -NEGATIVE???GI PCR, Shigella/Enteroinvasive E coli - NEGATIVE???GI PCR, Cryptosporidium - NEGATIVE???GI PCR, Cyclospora cayetanensis - NEGATIVE???GI PCR, Entamoeba histolytica - NEGATIVE???GI PCR, Giardia lamblia - NEGATIVE???GI PCR, Adenovirus F 40/41 - NEGATIVE???GI PCR, Astrovirus - NEGATIVE???GIPCR, Norovirus GI/GII - NEGATIVE???GI PCR, Rotavirus A - NEGATIVE???GI PCR, Sapovirus - NEGATIVE GLUCOSE POC (08/18/2022) ???Glucose, POC - 189 mg/dL HEMOGLOBIN A1C (08/15/2022) ???Hemoglobin A1C (Monitoring) - 6.8 % High??Sensitivity??Troponin T (08/15/2022) ???High Sensitivity Troponin (HSTnT) - 38 ng/L Hold Blue Top Tube (08/15/2022) ???Hold Blue Top - SPECIMEN DISCARDED AFTER 4 HOURS. Ionized Calcium (08/17/2022) ???Calcium, Ionized pH Corrected - 1.23 mmol/L Lactic Acid Level (08/15/2022) ???Lactate - 1.7 mmol/L Lipase (08/15/2022) ???Lipase - 13 units/L Magnesium Level (08/17/2022) ???Magnesium - 1.9 mg/dL Phosphorus Level (08/17/2022) ???Phosphorus - 3.8 mg/dL Troponin T, High Sensitivity (08/17/2022) ???High Sensitivity Troponin (HSTnT) - 30 ng/L TSH (08/16/2022) ???TSH - 1.55 uIU/mL Urinalysis Complete/Reflex Culture (08/15/2022) ???Appear/Color, Urine - YELLOW???Clarity - CLEAR???Specific [place], Urine - 1.015???pH, Urine - 6.0???Albumin, Urine - 1+???Glucose, Urine - NEGATIVE???Ketones, Urine - 1+???Bilirubin, Urine - NEGATIVE???Hemoglobin, Urine - NEGATIVE???Nitrite, Urine - NEGATIVE???Leukocyte, Urine - NEGATIVE???Urobi linogen - NORMAL???WBC's, Urine - 2 /HPF???RBC's, Urine - 1 /HPF???Bacteria - SLIGHT???Squamous Epith - <1 /HPF? ?Hyaline Cast - 6 LPF? ?Mucus - SLIGHT? ?Culture Indication - CULTURE NOT INDICATED VITAMIN B12 (08/16/2022) ???Vitamin B12 Level - 848 pg/mL Allergies (NKA means No Known Allergies) Bee Stings Contrast Dye??(urticaria) Latex??(anaphylaxis) antivenin (black spider) clindamycin??(Hives) penicillin??(rash) Problems Active Problems??(28) Acquired lymphedema of leg?? Chronic diarrhea?? Chronic widespread pain disorder?? Diabetes mellitus with neuropathy?? Epilepsy?? Heart failure with preserved left ventricular function (HFpEF)?? History of COVID-19?? History of pericarditis?? History of TIA (transient ischemic attack)?? History of urinary tract infection?? Hyperglycemia?? Hyperlipidemia?? Hypertension?? Iron deficiency anemia?? Limited mobility?? 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 Long-term current use of anticonvulants ??(phenytoin and oxcarbazepine)?? Mood disorder NOS?? Morbid obesity with BMI of 50.0-59.9, adult?? Multiple complaints?? Non-insulin dependent type 2 diabetes mellitus?? Obstructive sleep apnea?? Painful peripheral neuropathy - NOS?? Paroxysmal A-fib?? Pericarditis?? PTSD - Post-traumatic stress disorder?? Pulmonary hypertension?? Severe obesity?? Education Materials Below is the list of Educational Leaflet Providered with your Discharge Instructions. Diarrhea with Uncertain Cause (Adult)?? Diet for Vomiting or Diarrhea (Adult)?? Treating Diarrhea?? Valuables and Belongings I fully understand and agree that [facility] accepts no responsibility for all my personal property including clothing, toilet articles, radios, jewelry, dentures, hearing aids, rings, money, or any other property that is in my possession or is brought to me after admission. I understand certain valuables may be placed in a hospital safe for a short period of time. I understand that the hospital is not liable for loss or damage due to accident, fire, or other natural occurrence while said property is in the safe. I accept full responsibility for any personal property that I keep with me, and will not hold the hospital responsible in case of loss or disappearance. I acknowledge that i have been encouraged to send valuables and belongings home. ?? No Valuables/Belongings: No valuables/belongings present Review of Valuable and Belonging List: With patient, With witness Date for Pt to Sign Valuables/Belongings: 08/18/22 14:26:00 ?? Other Discharge Information ?? Wound Assessment?? Wound Assessment?? Wound Location I: Leg, right lower ?? Case Management Discharge Plan?? Discharge Plan?? Discharge Agency Information?? Discharge Level of Care at Discharge: Homehealth/VNA Agency Staff Radiation Therapist #1: intake [facility]charge [facility] [phone] Service Categories #1: Physical Therapy, Detention ?? Service Comments #1: the visiting nurse staff will call to set up a time to see you at home 1-2 days after discharge ?? Pulmonary Rehab Status?? Pulmonary Rehab Discharge Status?? Respiratory Rate: 18 br/min ? Common Emergency Awareness Tips IS IT A STROKE? Act FAST and Check for these signs: FACE Does the face look uneven? ARM Does one arm drift down? SPEECH Does their speech sound strange? TIME Call at any sign of stroke ?? Heart Attack Signs Chest discomfort: Most heart attacks involve discomfort in the center of the chest and lasts more than a few minutes, or goes away and comes back. It can feel like uncomfortable pressure, squeezing, fullness or pain. Discomfort in upper body: Symptoms can include pain or discomfort in one or both arms, back, neck, jaw or stomach. Shortness of breath: With or without discomfort. Other signs: Breaking out in a cold sweat, nausea, or lightheaded. Remember, MINUTES DO MATTER. If you experience any of these heart attack warning signs, call to get immediate medical attention! ?? Smoking can increase your chances of developing chronic health problems and can cause harmful effects to other family members in your house. If you smoke, you are strongly encouraged to quit. Please call [facility] Link at [phone] or [phone] ([phone] or log in to [email or web address] for referrals to smoking cessation programs. ?? The National Suicide Prevention Hotline is available 27/12 if you or someone you know needs to find a reason to keep living. By calling 8-627-620-[facility] (6574) you'll be connected to a skilled, trained counselor at a crisis center in your area. INPATIENT DISCHARGE INSTRUCTIONS SIGNATURE PAGE LEON BRUNER Location:[facility] Registration Date and Time:08/15/2022 19:37 EDT Primary Care Physician: Tal WILKINS, Brown Paz, I LEON BRUNER, have received the above patient education materials/instructions and have verbalized understanding. If ambulance or transport services are being used I further acknowledge beinggiven a choice of service. ?? If you need to contact me, please call me at this number: . Patient/Hydraulic Controls Technician Name: Patient/Hydraulic Controls Technician Signature: Relationship to Patient: Witness Name/Signature: Date: * Malkia Hamlin RN: PERFORM Event Display: Patient Education Leaflets Authored Date: [id number] Diarrhea with Uncertain Cause (Adult) ?? [id number] Diarrhea with Uncertain Cause (Adult) Diarrhea is when stools are loose and watery. This can be caused by: ??? Viral infections ??? Bacterial infections ??? Food poisoning ??? Parasites ??? Irritable bowel syndrome (IBS) ??? Inflammatory bowel diseases such as ulcerative colitis, Crohn's disease, and celiac disease ??? Food intolerance, such as to lactose, the sugar found in milk and milk products ??? Reaction to medicines like antibiotics, laxatives, cancer medicines, and antacids Along with diarrhea, you may also have: ??? Abdominal pain and cramping ??? Nausea and vomiting ??? Loss of bowel control ??? Fever and chills ??? Bloody stools In some cases, antibiotics may help to treat diarrhea. You may have a stool sample test which is done to see what is causing your diarrhea, and if antibiotics will help treat it. The results of a stool sample test may take up to 2 days. The healthcare provider may not give you antibiotics until they have the stool test results. Diarrhea can cause dehydration. This is the loss of too much water and other fluids from the body. When this occurs, you must replace those body fluids. This can be done with oral rehydration solutions. Oral rehydration solutions are available at drugstores and grocery stores without a prescription. Sports drinks are not the best choice if you are very dehydrated. They usually have too much sugarand not enough electrolytes. Home care Follow all instructions given by your healthcare provider. Rest at home for the next 24 hours, or until you feel better. Avoid caffeine, tobacco, and alcohol. These can make diarrhea, cramping, and pain worse. If taking medicines: ??? Kznn-hgn-kgivncz nausea and diarrhea medicines are generally OK unless you experience fever or blood in the stool. Check with your healthcare provider first in those circumstances. ??? You may use acetaminophen or nonsteroidal anti-inflammatory drugs (NSAIDs) such as ibuprofen or naproxen to reduce pain and fever. Don???t use these if you have chronic liver or kidney disease, or ever had a stomach ulcer or gastrointestinal??bleeding. Don't use NSAID medicines if you are already taking one for another condition (like arthritis) or are on daily aspirin therapy (such as for heart disease or after a stroke). Talk with your healthcare provider first. ??? If antibiotics were prescribed, be sure you take them until they are finished. Don???t stop taking them even when you feel better. Antibiotics must be taken exactly as prescribed. To prevent the spread of illness: ??? Remember that washing with soap and clean, running water and using alcohol- based small boat engineer is the best way to prevent the spread of infection. Dry your hands with a single-use towel (like a papertowel). ??? Clean the toilet after each use. ??? Wash your hands before eating. ??? Wash your handsbefore and after preparing food. Keep in mind that people with diarrhea or vomiting should not prepare food for others. ??? Wash your hands after using cutting boards, counter tops, and knives that have been in contact with raw foods. ??? Wash and then peel fruits and vegetables. ??? Keep uncooked meats away from cooked and nkivy-lk-aca foods. ??? Use a food thermometer when cooking. Cook poultryto at least 165??F (74??C). Cook ground meat (beef, veal, pork, rivera) to at least 160??F (71??C). Cook fresh beef, veal, rivera, and pork to at least 145??F (63??C). ??? Don???t eat raw or undercooked eggs (poached or denys side up), poultry, meat, or unpasteurized milk and juices. Food and drinks The main goal while treating vomiting or diarrhea is to prevent dehydration. This is done by takingsmall amounts of liquids often. ??? Keep in mind that liquids are more important than food right now. ??? Drink only small amounts of liquids at a time. ??? Don???t force yourself to eat, especially if you are??having cramping, vomiting, or diarrhea. Don???t eat large amounts at a time, even if you are hungry. ??? If you eat, avoid fatty, greasy, spicy, or fried foods. ??? Don???t eat dairy foods or drink milk if you have diarrhea.??These can make??diarrhea worse. During the first 24 hours you can try: ??? Oral rehydration solutions.?? Sports drinks may be used if you are not too dehydrated and are otherwise healthy. ??? Soft drinks without caffeine ??? Nina noam ??? Water (plain or flavored) ??? Decaf tea or coffee ??? Clear broth, consomm??, or bouillon ??? Gelatin, ice pops, or frozen fruit juice bars The second 24 hours, if you are feeling better, you can add: ??? Hot cereal, plain toast, bread, rolls, or crackers ??? Plain noodles, rice, mashed potatoes, chicken noodle soup, or rice soup ??? Applesauce, unsweetened canned fruit (no pineapple) ??? Bananas As you recover: ??? Limit fat intake to less than 15 grams per day. Don???t eat margarine, butter, oils, mayonnaise, sauces, gravies, fried foods, peanut butter, meat, poultry, or fish. ??? Limit fiber. Don???t eat raw or cooked vegetables, fresh fruits except bananas, or bran cereals. ??? Limit caffeine and chocolate. ??? Limit dairy. ??? Don???t use spices or seasonings except salt. ??? Go backto your normal diet over time, as you feel better and your symptoms improve. ??? If the symptoms come back, go back to a simple diet or clear liquids. ?? Follow-up care Follow up with your healthcare provider, or as advised. If a stool sample was taken or cultures were done, call the healthcare provider for the results as instructed. ?? Call 911 Call 911 if you have any of these symptoms: ??? Trouble breathing ??? Confusion ??? Extreme drowsiness or trouble walking ??? Loss of consciousness ??? Rapid heart rate ??? Chest pain ??? Stiff neck ??? Seizure ?? When to get medical advice Call your healthcare provider right away if any of these occur: ??? Abdominal pain that gets worse ??? Constant lower right abdominal pain ??? Continued vomiting and inability to keep liquids down ??? Diarrhea more than 5 times a day ??? Blood in vomit or stool ??? Dark urine or no urine for 8 hours, dry mouth and tongue, tiredness, weakness, or dizziness ??? Drowsiness ??? New rash ??? You don???t get better in 2 to 3 days ??? Fever of 100.4??F (38??C) or higher, or as advised by your provider ?? Last Reviewed Date: 2021 ?? 4631-6969 [employer]. All rights reserved. This information is not intended as a substitute for professional medical care. Always follow your healthcare professional's instructions. ?? * Malika Hamlin RN: PERFORM Event Display: Patient Education Leaflets Authored Date: [id number] Diet for Vomiting or Diarrhea (Adult) ?? [id number] Diet for Vomiting or Diarrhea (Adult) Your symptoms may return or get worse after eating certain foods listed below. If this happens, stop eating these foods until your symptoms ease and you feel better. Once the vomiting stops, follow the steps below.?? During the first 12 to 24 hours During the first 12 to 24 hours, follow this diet: ??? Drinks.??Have plain water, sports drinks (like electrolyte solutions), drinks without caffeine, mineral water (plain or flavored), and clear fruit juices. Don't have drinks with caffeine or citrus juices. This is because they are high in acid and can irritate your stomach. ??? Soups. Have clear broth. ??? Desserts. Have plain gelatin, frozen ice pops, and fruit juice bars without pieces of fruit. As you feel better, you may add 6??to 8 ounces of yogurt per day. If you have diarrhea, don't have??foods or drinks with sugar, high-fructose corn syrup, or sugar alcohols. ?? During the next 24 hours During the next 24 hours, you may add these to the above: ??? Hot cereal, plain toast, bread, rolls, and crackers ??? Plain noodles, rice, mashed potatoes, and chicken noodle or rice soup ??? Unsweetened canned fruit (not pineapple) and bananas Don't eat more than??15 grams of fat a day. Do this by staying away from margarine, butter, oils, mayonnaise, sauces, gravies, fried foods, peanut butter, meat, poultry, and fish. Don't eat much fiber. Stay away from??raw or cooked vegetables, fresh fruits (except bananas), and bran cereals. Limit how much??caffeine and chocolate you have. Don't use any??spices or seasonings except salt. ?? During the next 24 hours Slowly go back to your normal diet, as you feel better and your symptoms ease. ?? Last Reviewed Date: 2021 ?? [employer] All rights reserved. This information is not intended as a substitute for professional medical care. Always follow your healthcare professional's instructions. ?? * Malika Hamlin RN: PERFORM Event Display: Patient Education Leaflets Authored Date: [id number] Treating Diarrhea ?? 65877 Treating Diarrhea Diarrhea happens when you have loose, watery, or frequent bowel movements. It's a common problem with many causes. Most cases of diarrhea clear up on their own. But certain cases may need treatment. Be sure to see your healthcare provider??if your symptoms don't get better in a few days. Getting relief Treatment of diarrhea depends on its cause. Diarrhea caused by bacterial or parasite infection is often treated with antibiotics. Diarrhea caused by other factors, such as a stomach virus, often improves with simple home treatment. The tips below may also help ease your symptoms. ??? Drink plenty of fluids. This helps prevent too much fluid loss (dehydration). Water, clear soups, and electrolyte solutions are good choices. Don't have drinks with caffeine. Don't drink alcohol,coffee, tea, or milk. These can irritate your intestines and??make symptoms worse. ??? Suck on ice chips first if drinking fluids makes you queasy. ??? Return to your normal diet slowly. You may wantto eat bland foods at first, such as rice and toast. Also, you may need to stay away from certain foods for a while, such as dairy products. These can make symptoms worse. Ask your??healthcare provider??if there are any other foods you should stay away from. ??? If you were prescribed antibiotics, take them as directed. Finish the prescription even if you feel better. ??? Don't take anti-diarrheamedicines without asking your??provider??first. ??? Keep in mind that you may be infectious. Wash your hands often with soap and clean, running water or use an alcohol-based small boat engineer that contains at least 60% alcohol. ?? Call your healthcare provider?? Call your healthcare provider right away if you have any of the following:? A fever of 100.4??F ( 38.0??C) or higher, or as directed by your provider ??? Chills ??? Severe pain ??? Worsening diarrhea or diarrhea for more than 2 days ??? Bloody vomit or stool ??? Signs of dehydration (dizziness, dry mouth and tongue, rapid pulse, dark urine) ?? Last Reviewed Date: 2021 ?? 0030-5650 [employer] All rights reserved. This information is not intended as a substitute for professional medical care. Always follow your healthcare professional's instructions. ?? * [facility] , CIS S: TRANSCRIBE Alexandre Albarran MD, V: VERIFY Event Display: Result: Authored Date: [id number] Chest 2 Views Frontal and Lat Hx of Present Illness: [facility] on . Todaypatient developed N v d. also patient is complaining of intermittent midsternal sharp chest pain radiating to left shoulder.; Reason: Other:; Chest Pain; Clinical Question(s): Other: COMPARISON: Multiple prior examinations the most recent dated 05/15/2022. FINDINGS: LINES AND TUBES: None. LUNGS AND PLEURA: Clear lungs. Normal pulmonary vascularity. No pleural effusion. No pneumothorax. HEART, MEDIASTINUM AND NNAMDI: Heart is normal in size. Normal mediastinal and hilar contour. BONES AND SOFT TISSUES: No acute abnormality. IMPRESSION: No acute abnormality. WSN: [id number] Ordering Physician: Jennifer Katz Dictated By: Alexandre Albarran MD, V Dictated Date/Time: 08/16/22 8:27 am Reviewed By: Alexandre Albarran MD, V Signed By: Alexandre Albarran MD, V Signed Date/Time: 08/16/22 8:27 am Transcribed By: LEATHA Transcribed Date/Time: 08/16/22 8:26 am Hospital Progress note * Alfonso Carter RN: VERIFY, PERFORM, SIGN Event Display: Progress Note Hospital Authored Date: [id number] Patient: LEON BRUNER Age: 62 years Sex: Male : 1960 Associated Diagnoses: None Author: Alfonso Carter RN Findings Problem Related to Alteration in Comfort : Alteration in Comfort/new 10/04/2022 3:00 EDT Alteration in Comfort Related to Other: Back pain Goals & Outcomes: Comfort Pt will report acceptable level of comfort & pain control, Pt will state importance of adhering to pain strategy regime, Pt will demonstrate necessary skills to manage pain, Non-verbal indicators will indicate comfort/pain control Interventions Implemented: Comfort Assess pain using appropriate pain scale/tools, Assess aggravating factors & prevent them accordingly, Assess alleviating factors & promote them accordingly BH Goals/Interventions, Comfort Yes Comfort, Problem Start 10/04/2022 3:18 Reviewed plan with, Comfort Patient Patient Progression, Comfort Plan Initiation Comfort, Problem Ongoing Yes . Evaluation pt tolerating po well able to get oob to pivot. pain controlled with scheduled and prn medications.wound care consult performed. covid and ekg performed for placement. report called to yazan. . * Buffy Mendez MD: PERFORM Event Display: Progress Note Hospital Authored Date: [id number] Patient: ??LEON BRUNER ? Age:??62 Years?Sex:??Male?:??1960?? Subjective ?? Leon Navarro is a 62-year-old male patient with a history of A-fib on apixaban, DVT, hypertension, hyperlipidemia, HFpEF, history of pericarditis, seizures??(possibly??secondary to??benzodiazepine withdrawal or Wellbutrin), type 2 diabetes with diabetic neuropathy, chronic pain syndrome, PTSD, depression, anxiety, anxiety and agoraphobia who first presented to the [facility] ED on 08/15/2022 inthe setting of diarrhea, weakness, and sharp chest pain. Pt was made a psych bed search due to depression and SI. Search was briefly stopped for COVID, Pt is currently a psychiatric bed search. ?? Pt resting in bed, no acute issues at this time. Does continue to endorse low mood, anxiety about leaving the hospital without further psych treatment. Pt reports he uses a standard bed at home, reports able to get in and out at home. ?? Pt has been medication compliant. Review of Systems 10 point review of systems negative except Pertinent positives as above noted.?? Objective Vital Signs?? Temperature: 98.6 DegF (10/04/22 07:00:00) Temperature Route: Oral (10/04/22 07:00:00) Pulse Rate: 78 bpm (10/04/22 10:29:00) Respiratory Rate: 20 br/min (10/04/22 13:55:00) Systolic Blood Pressure: 115 mm Hg (10/04/22 10:29:00) Diastolic Blood Pressure: 72 mm Hg (10/04/22 10:29:00) Blood pressure sites: Arm, left (10/04/22 07:00:00) Pulse Pressure: 40 mm Hg (10/04/22 07:00:00) Oxygen Saturation: 94 % (10/04/22 07:00:00) Mode of Delivery (Oxygen): Room air (10/04/22 07:00:00) Early Warning Score: 2 (10/04/22 13:58:20) ? Physical Exam ?? Mental Status Exam: Appearance:??hospital garb ? Attitude: cooperative. ? Motor activity: calm. ? Mood: anxious. ? Affect: appropriate. ? Speech: fluent, unimpaired. ? Perception: no impairment. ? Orientation: intact. ? Memory: intact. ? Judgment: intact. ? Insight: intact. ? Thought process: goal-directed. ? Reliability:??fair ? Suicidality/self-destructive behavior: none. ? Homicidality/violence: none. ?? _ Inpatient Medications Medications (42) Active SCHEDULED: (23) Acetaminophen 325 mg Tablet (Acetaminophen Tablet) ??975 mg, By Mouth, 3 times a day Apixaban 5 mg Tablet (Eliquis) ??5 mg, By Mouth, 2 times a day Aripiprazole 5 mg Tablet (Abilify 5 mg oral tablet) ??7.5 mg, By Mouth, Daily in AM Atorvastatin 80 mg Tablet (Lipitor 80 mg oral tablet) ??80 mg, By Mouth, Daily Calamine Lotion (Calamine Topical) ??1 application, Topically, 2 times a day Diltiazem 120 mg/24 hour CD Capsule (diltiazem 120 mg/24 hours oral capsule, extended release) ??120 mg, By Mouth, Daily before lunch Duloxetine 60 mg Capsule (DULoxetine Capsule) ??60 mg, By Mouth, 2 times a day Ferrous Sulfate 325 mg EC Tablet (ferrous sulfate 325 mg oral enteric coated tablet) ??325 mg, By Mouth, Every Tuesday, Tuesday and Tuesday Fluticasone Propionate 50mcg/inh Nasal Dorsey (Flonase 50 mcg/inh nasal spray) ??50 mcg 1 sprays, Nares, Both, 2 times a day Gabapentin 400 mg Capsule (gabapentin 400 mg oral capsule) ??400 mg, By Mouth, 5 times a day Insulin Lispro 100 units/mL Inj (3mL) (Insulin LISPRO Sliding Scale) ??2-10 units, Subcutaneous Injection, 3 times a day before meals Lidocaine 5% Topical Patch (Lidocaine 5% Patch) ??1 each, Topically, Daily Metformin 500 mg Tablet (metFORMIN 500 mg oral tablet) ??1,000 mg 2 each, By Mouth, Daily Metoprolol 25 mg XL Tablet (metoprolol 25 mg oral tablet, extended release) ??75 mg, By Mouth, Daily NaCl 0.9% Flush 3ml (NaCL 0.9% Flush) ??3 mL, IV Push, Every 8 hours Nystatin Powder ??1 application, Topically, 2 times a day Pantoprazole 40 mg EC Tablet (pantoprazole 40 mg oral delayed release tablet) ??40 mg, By Mouth, Daily Phenytoin 100 mg ER Capsule (Dilantin Capsule) ??200 mg, By Mouth, Daily Phenytoin 100 mg ER Capsule (Dilantin Capsule) ??400 mg, By Mouth, Daily at bedtime Quetiapine 200 mg Tablet (QUEtiapine 200 mg oral tablet) ??200 mg, By Mouth, 2 times a day Remove Patch (Remove Lidocaine Patch) ??1 each, Topically, Daily at bedtime Senna Tablet (Senna 8.6 mg oral tablet) ??8.6 mg 1 tablet, By Mouth, Daily Torsemide 20 mg tablet (torsemide 20 mg oral tablet) ??20 mg 1 tablet, By Mouth, Daily CONTINUOUS: (0) PRN: (19) Albuterol 90mcg/Inhalation Inhaler HFA (albuterol CFC free 90 mcg/inh inhalation aerosol) ??180 mcg2 puffs, Inhalation, Every 4 hours Dextromethorphan-Guaifenesin 20 [...] ??30 Gm, By Mouth, Every 20 minutes HydrOXYzine HCL 10mg Tablet (hydrOXYzine hydrochloride 10 mg oral tablet) ??25 mg, By Mouth, Every 8 hours HydrOXYzine Pamoate 25mg Capsule (Vistaril Capsule) ??25 mg, By Mouth, Every 6 hours Lidocaine 4% Topical Cream ??1 application, Topically, Every 12 hours Lorazepam 2 mg Tablet (LORazepam 2 mg oral tablet) ??2 mg, By Mouth, Every 8 hours Melatonin 3 mg Tablet (Melatonin Tablet) ??3 mg, By Mouth, Daily at bedtime NaCl 0.9% Flush 3ml (NaCL 0.9% Flush) ??3 mL, IV Push, Every 8 hours Nitroglycerin 0.4 mg Sublingual Tablet (nitroglycerin 0.4 mg sublingual tablet) ??0.4 mg, Sublingual, Every 5 minutes Ondansetron 4 mg ODT (ondansetron 4 mg oral tablet, disintegrating) ??4 mg, By Mouth, Every 6 hours OxyCODONE 5 mg IR Tablet (oxyCODONE 5 mg oral tablet) ??5 mg, By Mouth, 3 times a day Quetiapine 100 mg Tablet (QUEtiapine 100 mg oral tablet) ??100 mg, By Mouth, Daily at bedtime Simethicone 80 mg Chewable Tablet (Simethicone Tablet) ??80 mg, Chew, 3 times a day Trazodone 50 mg Tablet (traZODone 50 mg oral tablet) ??50 mg, By Mouth, Daily at bedtime ? Results Recent Labs CHEM GENERAL Glucose, POC 165 mg/dL (High)?? 10/04/2022 11:24 Lactate 1.2 mmol/L ()?? 10/04/2022 06:55 ?? HEME OTHER Hold Lavender Top SPECIMEN DISCARDED AFTER 24 HOURS. ()?? 10/04/2022 06:53 ?? MISC. CHEMISTRY Hold Gel Top SPECIMEN DISCARDED AFTER 1 WEEK ()?? 10/04/2022 06:53 ? Assessment/Plan Leon Navarro is a 62-year-old male patient with a history of A-fib on apixaban, DVT, hypertension, hyperlipidemia, HFpEF, history of pericarditis, seizures??(possibly??secondary to??benzodiazepine withdrawal or Wellbutrin), type 2 diabetes with diabetic neuropathy, chronic pain syndrome, PTSD, depression, anxiety, anxiety and agoraphobia who first presented to the [facility] ED on 08/15/2022 inthe setting of diarrhea, weakness, and sharp chest pain. Pt was made a psych bed search due to depression and SI. Search was briefly stopped for COVID, Pt is currently a psychiatric bed search. ?? Pt remains calm, cooperative at this time. Hopeful for a psychiatric admission soon. ?? As per team Pt does not currently require??supplemental oxygen at this time, Left heel and right toe wounds are stable and require skin prep and wrapping.?? Pt at home does not use bariatric bed at??home and if his current weight is appropriate for a regular bed, Pt is agreeable. ?? No acute medical issues at this time. ? DSM- 5 Diagnoses: Persistent depressive disorder Generalized anxiety disorder PTSD Agoraphobia??per history Rule out??cluster B personality traits ?? Recommendations: ??-Pt is currently a psychiatric bed search -Continue current medications ? Greater than??35 minutes spent on this consult including review of patient???s chart, examination of the patient, writing chart notes, and communicating with health neonatal intensive care nurse and/or the patient???s family. * Aldo Chambers MD: PERFORM Event Display: Progress Note Hospital Authored Date: [id number] Patient: ??LEON BRUNER ? Age:??62 Years?Sex:??Male?:??1960?? Subjective Patient repotted feeling well and not having any SI or HI. Review of Systems Review of systems otherwise negative, unless stated in HPI section Allergies Allergies ?(Active and Proposed Allergies Only) antivenin (black spider)? (Severity: Unknown severity, Onset: Unknown) Bee Stings? (Severity: Unknown severity, Onset: Unknown) Contrast Dye? (Severity: Unknown severity, Onset: Unknown) ?Reactions: urticaria clindamycin? (Severity: Unknown severity, Onset: Unknown) ?Reactions: Hives Latex? (Severity: Unknown severity, Onset: Unknown) ?Reactions: anaphylaxis penicillin? (Severity: Unknown severity, Onset: Unknown) ?Reactions: rash ? Objective Measurements?? Weight: 143.8 kg (10/04/22) ?? Vital Signs?? Temperature: 98.6 DegF (10/04/22 07:00:00) Temperature Route: Oral (10/04/22 07:00:00) Pulse Rate: 78 bpm (10/04/22 10:29:00) Respiratory Rate:??15 br/min??Low (10/04/22 10:41:00) Systolic Blood Pressure: 115 mm Hg (10/04/22 10:29:00) Diastolic Blood Pressure: 72 mm Hg (10/04/22 10:29:00) Blood pressure sites: Arm, left (10/04/22 07:00:00) Pulse Pressure: 40 mm Hg (10/04/22 07:00:00) Oxygen Saturation: 94 % (10/04/22 07:00:00) Mode of Delivery (Oxygen): Room air (10/04/22 07:00:00) Early Warning Score: 2 (10/04/22 11:50:37) ? Intake/Output? 08/15 19:37 10/04 07:00 10/03 07:00 10/02 07:00 10/01 07:00 ?? 10/04 13:01 10/04 13:01 10/04 06:59 10/03 06:59 10/02 06:59 Intake ?15790.7 ?360 ? 1930 ?630 ?480 Output ?96790 ?600 ? 4800 ? 1500 ? 2225 Net Total ? -45865.3 ? -240 ?-2870 ? -870 ?-1745 ? Urine Count ? 21 ?0 ?0 ?0 ?0 ? Physical Exam ?General:??Alert, comfortable, interactive ?CV:??Regular rate and rhythm, no murmurs ?Respiratory:??Lungs clear bilaterally, no wheezes, no crackles ?Abdomen:??Soft, nontender, nondistended, bowel sounds ?Extremities/MSK:??Moving all extremities equally, no swelling or erythema ?Skin:??No rash, no jaundice ?Neuro:??Normal tone and strength, moving all extremities, appropriately alert _ Inpatient Medications Medications (42) Active SCHEDULED: (23) Acetaminophen 325 mg Tablet (Acetaminophen Tablet) ??975 mg, By Mouth, 3 times a day Apixaban 5 mg Tablet (Eliquis) ??5 mg, By Mouth, 2 times a day Aripiprazole 5 mg Tablet (Abilify 5 mg oral tablet) ??7.5 mg, By Mouth, Daily in AM Atorvastatin 80 mg Tablet (Lipitor 80 mg oral tablet) ??80 mg, By Mouth, Daily Calamine Lotion (Calamine Topical) ??1 application, Topically, 2 times a day Diltiazem 120 mg/24 hour CD Capsule (diltiazem 120 mg/24 hours oral capsule, extended release) ??120 mg, By Mouth, Daily before lunch Duloxetine 60 mg Capsule (DULoxetine Capsule) ??60 mg, By Mouth, 2 times a day Ferrous Sulfate 325 mg EC Tablet (ferrous sulfate 325 mg oral enteric coated tablet) ??325 mg, By Mouth, Every Tuesday, Tuesday and Tuesday Fluticasone Propionate 50mcg/inh Nasal Dorsey (Flonase 50 mcg/inh nasal spray) ??50 mcg 1 sprays, Nares, Both, 2 times a day Gabapentin 400 mg Capsule (gabapentin 400 mg oral capsule) ??400 mg, By Mouth, 5 times a day Insulin Lispro 100 units/mL Inj (3mL) (Insulin LISPRO Sliding Scale) ??2-10 units, Subcutaneous Injection, 3 times a day before meals Lidocaine 5% Topical Patch (Lidocaine 5% Patch) ??1 each, Topically, Daily Metformin 500 mg Tablet (metFORMIN 500 mg oral tablet) ??1,000 mg 2 each, By Mouth, Daily Metoprolol 25 mg XL Tablet (metoprolol 25 mg oral tablet, extended release) ??75 mg, By Mouth, Daily NaCl 0.9% Flush 3ml (NaCL 0.9% Flush) ??3 mL, IV Push, Every 8 hours Nystatin Powder ??1 application, Topically, 2 times a day Pantoprazole 40 mg EC Tablet (pantoprazole 40 mg oral delayed release tablet) ??40 mg, By Mouth, Daily Phenytoin 100 mg ER Capsule (Dilantin Capsule) ??200 mg, By Mouth, Daily Phenytoin 100 mg ER Capsule (Dilantin Capsule) ??400 mg, By Mouth, Daily at bedtime Quetiapine 200 mg Tablet (QUEtiapine 200 mg oral tablet) ??200 mg, By Mouth, 2 times a day Remove Patch (Remove Lidocaine Patch) ??1 each, Topically, Daily at bedtime Senna Tablet (Senna 8.6 mg oral tablet) ??8.6 mg 1 tablet, By Mouth, Daily Torsemide 20 mg tablet (torsemide 20 mg oral tablet) ??20 mg 1 tablet, By Mouth, Daily CONTINUOUS: (0) PRN: (19) Albuterol 90mcg/Inhalation Inhaler HFA (albuterol CFC free 90 mcg/inh inhalation aerosol) ??180 mcg2 puffs, Inhalation, Every 4 hours Dextromethorphan-Guaifenesin 20 [...] ??30 Gm, By Mouth, Every 20 minutes HydrOXYzine HCL 10mg Tablet (hydrOXYzine hydrochloride 10 mg oral tablet) ??25 mg, By Mouth, Every 8 hours HydrOXYzine Pamoate 25mg Capsule (Vistaril Capsule) ??25 mg, By Mouth, Every 6 hours Lidocaine 4% Topical Cream ??1 application, Topically, Every 12 hours Lorazepam 2 mg Tablet (LORazepam 2 mg oral tablet) ??2 mg, By Mouth, Every 8 hours Melatonin 3 mg Tablet (Melatonin Tablet) ??3 mg, By Mouth, Daily at bedtime NaCl 0.9% Flush 3ml (NaCL 0.9% Flush) ??3 mL, IV Push, Every 8 hours Nitroglycerin 0.4 mg Sublingual Tablet (nitroglycerin 0.4 mg sublingual tablet) ??0.4 mg, Sublingual, Every 5 minutes Ondansetron 4 mg ODT (ondansetron 4 mg oral tablet, disintegrating) ??4 mg, By Mouth, Every 6 hours OxyCODONE 5 mg IR Tablet (oxyCODONE 5 mg oral tablet) ??5 mg, By Mouth, 3 times a day Quetiapine 100 mg Tablet (QUEtiapine 100 mg oral tablet) ??100 mg, By Mouth, Daily at bedtime Simethicone 80 mg Chewable Tablet (Simethicone Tablet) ??80 mg, Chew, 3 times a day Trazodone 50 mg Tablet (traZODone 50 mg oral tablet) ??50 mg, By Mouth, Daily at bedtime ? Results Recent Labs CHEM GENERAL Glucose, POC 165 mg/dL (High)?? 10/04/2022 11:24 Lactate 1.2 mmol/L ()?? 10/04/2022 06:55 ?? HEME OTHER Hold Lavender Top SPECIMEN DISCARDED AFTER 24 HOURS. ()?? 10/04/2022 06:53 ?? MISC. CHEMISTRY Hold Gel Top SPECIMEN DISCARDED AFTER 1 WEEK ()?? 10/04/2022 06:53 ? Assessment/Plan Assessment:??62-year-old with a medical history of morbid obesity by BMI, atrial fibrillation on apixaban, DVT, hypertension, hyperlipidemia, HFpEF, history of pericarditis, seizure disorder, type 2 diabetes with diabetic neuropathy, chronic pain syndrome, PTSD with depression anxiety and agoraphobia, who presented for evaluation of diarrhea, weakness and sharp chest pain. Patient was medically cleared 08/18 but expressed suicidal ideation with an active plan, readmitted for further evaluation and management. Medically cleared and pending psych bed search. ?? Major depressive disorder History of anxiety, agoraphobia, PTSD Suicidal ideation Mood disorder NOS Reached out to psych on 09/28/22 and is on active bed search Escalated bed search situation with [facility] ?? Plan -Pending psych bed search -Continue on his home duloxetine, lorazepam, Seroquel, hydroxyzine, and trazodone, Abilify increased to 7.5mg ?? History of hypertension Hypotension Paroxysmal atrial fibrillation with RVR - rvr resolved Chronic heart failure with preserved ejection fraction - stable Patient with low blood pressures when they are tested as he is lying flat, but show some improvement when sitting up. He received several fluid boluses during this admission with mild improvement of blood pressure. He also reports that in the past 3 to 4 months he has lost a lot of weight which might be contributing to improve blood pressure and overmedication from previous blood pressure regimen. ?? Plan -Dilt to 120mg qD for low BP -Continue torsemide at 20 mg/day -Continue Imdur to 30mg QD -Continue diltiazem, metoprolol, and Imdur -Continue apixaban ?? Lymphedema lower extremity Chronic ulcers right great toe and left heel ?? Plan -PRN pain meds -Follow up with wound care outpatient -Wound care recs ?? Chronic medical issues Hyperlipidemia: Continue atorvastatin Diabetes mellitus with neuropathy - Continue insulin sliding scale, POC 6. Recommend pt obtain convoluted boot/bunny boot upon discharge to continue offloading left heel at home. Alternatively, pt can float left heel off surfaces at home by placing pillows behind left calf.checks, hypoglycemia emergency measures. Can restart home metformin and gabapentin 400 mg 5 timesdaily upon discharge. Epilepsy - Continue the phenytoin 200 mg qAM and 400 mg qhs Noncardiac chest pain (resolved) Acute diarrhea (resolved) Elevated lactic acid (resolved) Abdominal pain - resolved Constipation - resolved ?? CODE STATUS: Full DVT prophylaxis: apixaban Diet: Diabetic ?? Aldo Col??MD jacy MS Arias PGY-2 [facility]??& Madan Fish p.[phone] ?? Patient seen and plan discussed with attending, ??[place] CT Abdomen and Pelvis WO contrast * [facility] , CIS S: TRANSCRIBE Magui Booth DO F: SIGN Salome WILKINS, Shan: VERIFY Event Display: Result: Authored Date: [id number] CT Abdomen and Pelvis W/O Contrast REASON: Left lower quadrant pain; Clinical Question(s): Diverticulitis TECHNIQUE: Spiral CT through the abdomen and pelvis without IV contrast formatted in 3 planes. Thisstudy was performed without oral contrast. Weight- based protocol using automatic tube modulation was used to optimize exposure parameters. CTDIvol Body: 21.10 mGy, DLP Body: 1411 mGy*cm. COMPARISON: 08/15/2022 FINDINGS: Casting Chipper View Findings, Lines and Tubes: None. Visualized Chest: Mild dependent atelectasis. No pleural effusion. The heart is normal in size. No pericardial effusion. Diaphragm: Normal. Liver: Normal. Gallbladder: Cholelithiasis, without evidence of acute cholecystitis. Bile ducts: No biliary ductal dilation. Spleen: Enlarged spleen measuring up to 17 cm in the axial view. Pancreas: Normal. Adrenal glands: Normal. Kidneys and ureters: Mild bilateral cortical atrophy. No hydronephrosis, stones, or noncontrast evidence of suspicious masses. Bladder: Decompressed, however appears unremarkable. Reproductive organs: Unremarkable. Stomach, small bowel, and large bowel: Normal caliber stomach and bowel. No evidence of obstructionor inflammatory changes. Appendix: Not seen, but no evidence of appendicitis. Peritoneum and retroperitoneum: No ascites or pneumoperitoneum. No omental or mesenteric lesions. Lymph nodes: No enlarged lymph nodes. Blood vessels: Mild vascular calcifications but no aneurysm. Abdominal and pelvic wall: Bilateral fat-containing inguinal hernias. Bones: No acute abnormality. Moderate degenerative changes of visualized spine. Chronic wedge compression fractures of T11 and T12, appears unchanged. IMPRESSION: 1. No acute abnormality in the abdomen and pelvis. No evidence of acute diverticulitis. 2. Cholelithiasis without evidence of cholecystitis. 3. Splenomegaly. I have personally reviewed the images and I agree with this report. WSN: [id number] Ordering Physician: Melinda Ortiz Dictated By: Magui Booth DO Dictated Date/Time: 09/07/22 10:02 a Reviewed By: Carl Mcmahon MD Signed By: Carl Mcmahon MD Signed Date/Time: 09/07/22 10:07 am Transcribed By: LEATHA Transcribed Date/Time: 09/07/22 9:51 am * [facility] , CIS S: TRANSCRIBE Patricio WILKINS, Nitin B: VERIFY Carlos WILKINS, Ahmed: SIGN Event Display: Result: Authored Date: [id number] CT Abdomen and Pelvis W/O Contrast HX OF PRESENT ILLNESS: patient recently discharged from [facility] for uti on . Todaypatient developed N v d. Also patient is complaining of intermittent midsternal sharp chest pain radiating to left shoulder. TECHNIQUE: Spiral CT through the abdomen and pelvis without IV contrast formatted in 3 planes. Thisstudy was performed without oral contrast. Weight- based protocol using automatic tube modulation was used to optimize exposure parameters. CTDIvol Body: 28.10 mGy, DLP Body: 1721 mGy*cm. COMPARISON: 04/25/2022 and priors. FINDINGS: Casting Chipper View Findings, Lines and Tubes: None. Visualized Chest: Minimal bilateral dependent atelectasis. No pleural effusion. The heart is normalin size. No pericardial effusion. Diaphragm: Normal. Liver: Normal. Gallbladder: Underdistended with a gallstone near its neck. No evidence of cholecystitis. Bile ducts: No biliary ductal dilation. Spleen: Splenomegaly measuring 16.8 cm, unchanged from priors. Pancreas: Normal. Adrenal glands: Normal. Kidneys and ureters: No hydronephrosis, stones, or noncontrast evidence of suspicious masses. Bladder: Mild concentric bladder wall thickening without adjacent fat stranding or other signs of inflammation. Reproductive organs: Unremarkable. Stomach, small bowel, and large bowel: Scattered noninflamed colonic diverticula. The stomach and small bowel are unremarkable. Appendix: Normal. Peritoneum and retroperitoneum: No ascites or pneumoperitoneum. No omental or mesenteric lesions. Lymph nodes: Multiple borderline enlarged pelvic lymph nodes are unchanged, for example right external iliac lymph node measuring 0.8 cm in short axis (series 201:118), and left external iliac lymph node measuring 0.8 cm in short axis (series 201:148), both stable from study dated 05/03/2022. Blood vessels: Mild vascular calcifications but no aneurysm. Abdominal and pelvic wall: Small right fat-containing inguinal hernia. Diffuse muscular atrophy. Bones: Moderate to severe degenerative changes of the visualized spine with minimal retrolisthesis of L4 on L5. Chronic T11 compression fracture with increasing T12 compression fracture.. IMPRESSION: Minimal bladder wall thickening without adjacent fat stranding or other signs of inflammation, consistent with known history of resolving UTI. Otherwise, no cause for patient's symptoms is seen on current study. Cholelithiasis without evidence of cholecystitis. Unchanged splenomegaly. Interval worsening of a T12 compression fracture. I have personally reviewed the images and I agree with this report. WSN: [id number] Ordering Physician: Jasmyn Carmen Dictated By: Jamison Gonzalez MD Dictated Date/Time: 08/16/22 7:09 am Reviewed By: Nitin Curry MD Signed By: Nitin Curry MD Signed Date/Time: 08/16/22 7:14 am Transcribed By: LEATHA Transcribed Date/Time: 08/16/22 0:30 am XR Shoulder - left GE 2 Views * [facility] , CIS S: TRANSCRIMEDINA Lu MD, Christina Kauffman: VERIFY Event Display: Result: Authored Date: [id number] Shoulder Min 2 Views Left INDICATION: Reason: Pain; Clinical Question(s): Fracture COMPARISON: 05/16/2022 FINDINGS: There is moderate degenerative bony hypertrophy at the left acromioclavicular joint. There is no fracture or subluxation. No bony destruction or erosion. IMPRESSION: No fracture. Moderate degenerative bony hypertrophy at the left acromioclavicular joint. WSN: [id number] Ordering Physician: Jing Nina Dictated By: Christina Lu MD Dictated Date/Time: 09/25/22 12:41 p Reviewed By: Christina Lu MD Signed By: Christina Lu MD Signed Date/Time: 09/25/22 12:41 pm Transcribed By: LEATHA Transcribed Date/Time: 09/25/22 12:40 pm XR Knee - right 1 or 2 Views * [facility] , CIS S: TRANSCRIClaude Berry MD: VERIFY Event Display: Result: Authored Date: [id number] Knee 1 or 2 Views Right, views Reason: Pain; Clinical Question(s): Arthritis COMPARISON: 01/01/2021. FINDINGS: Partially visualized intramedullary ena in the tibia similar to prior. No fracture. Moderate-severe tricompartmental degenerative osteoarthritis but no evidence of osteochondral defect . The patellofemoral joint space narrowing appears to have progressed. Chondrocalcinosis in the medial and lateral tibiofemoral components. No evidence of joint effusion. IMPRESSION: Moderate-severe tricompartmental degenerative osteoarthritis with progression of patellofemoral joint space narrowing. Though, this in part may be due to differences in positioning. WSN: [id number] Ordering Physician: Jelly Ding Dictated By: Claude Eisenberg MD Dictated Date/Time: 09/13/22 6:38 pm Reviewed By: Claude Eisenberg MD Signed By: Claude Eisenberg MD Signed Date/Time: 09/13/22 6:38 pm Transcribed By: LEATHA Transcribed Date/Time: 09/13/22 6:34 pm XR Abdomen AP * SHOLASPalejandro , CIS S: TRANSCRIChristina Umaña MD: VERIFY Event Display: Result: Authored Date: [id number] XR Abdomen AP 1 view INDICATION/CLINICAL QUESTION: Reason: Pain; Clinical Question(s): Constipation COMPARISON: None FINDINGS: Nonobstructing bowel gas pattern. There is increased amount of stool throughout the colon. No organomegaly, masses or calcifications. No acute bone findings. IMPRESSION: Nonobstructing bowel gas pattern. Increase stool throughout the colon. WSN: [id number] Ordering Physician: Aldo Chambers Dictated By: Christina Lu MD Dictated Date/Time: 09/05/22 6:36 pm Reviewed By: Christina Lu MD Signed By: Christina Lu MD Signed Date/Time: 09/05/22 6:36 pm Transcribed By: LEATHA Transcribed Date/Time: 09/05/22 6:35 pm Portable XR Chest Views * [facility] , CIS S: TRANSCRIBE Emanuel Mena MD: VERIFY Event Display: Result: Authored Date: [id number] Chest Portable Reason: Pleuritic Pain; Clinical Question(s): Pulmonary Edema COMPARISON: 08/15/2022, 02/05/[address] chest from 05/03/2022 FINDINGS: Patient is rotated. LINES AND TUBES: None. LUNGS AND PLEURA: Clear lungs. Normal pulmonary vascularity. No pleural effusion. No pneumothorax. HEART, MEDIASTINUM AND NNAMDI: Heart is normal in size. Apparent accentuation of the right paratracheal stripe due to projection. BONES AND SOFT TISSUES: No acute abnormality. IMPRESSION: No acute abnormality. WSN: [id number] Ordering Physician: Victorino Wolfe Dictated By: Emanuel Mena MD Dictated Date/Time: 09/21/22 0:02 am Reviewed By: Emanuel Mena MD Signed By: Emanuel Mena MD Signed Date/Time: 09/21/22 0:02 am Transcribed By: LEATHA Transcribed Date/Time: 09/21/22 0:01 am Patient Care team information Care Team Personnel Name: Tiki Kim RN Position: S RN Member Role: Primary Care Nurse Name: Gladis Carrizales RN Position: S RN Member Role: Primary Care Nurse Name: Ebony Santoyo RN Position: S RN Member Role: Primary Care Nurse Name: Siobhan Ko RN Position: S RN Member Role: Primary Care Nurse Name: Evette Marrero Position: S RN Supv Member Role: Primary Care Nurse Name: Claude Zhao RN Position: [facility] RN Member Role: Primary Care Nurse Name: Aviva Howard RN Position: [facility] RN Member Role: Primary Care Nurse Name: Hilda Doyle RN Position: [facility] RN Rachael Member Role: Primary Care Nurse Name: Kimmy Ahumada NP Position: [facility] Associate Professional Member Role: Primary Care Nurse Address: Address: [address] [place] [address]- [place] Name: Bruce Mccurdy MD Position: [facility] Renal MD Member Role: Lifetime Consulting Physician Address: Address: [address] [place] [address], [address] [facility] [place] [address]- [place] Name: Regis Huang RN Position: [facility] RN Member Role: Primary Care Nurse Name: Miguelina Hallman RN Position: [facility] RN Member Role: Primary Care Nurse Name: Mirella Mabry RN Position: [facility] RN Member Role: Primary Care Nurse Name: Shelby Luan RN Position: [facility] RN Member Role: Primary Care Nurse Name: Sarina Camejo RN Position: [facility] RN Member Role: Primary Care Nurse Name: Lachelle Shine RN Position: [facility] RN Member Role: Primary Care Nurse Name: Leilani Lerma RN Position: [facility] HBO Wound Member Role: Primary Care Nurse Name: Sandrita Portillo LPN Position: [facility] RN Member Role: Primary Care Nurse Name: Corina Munoz RN Position: [facility] RN Member Role: Primary Care Nurse Name: Vania Hernandez Position: [facility] RN Member Role: Primary Care Nurse Name: Mukul Dougherty RN Position: [facility] RN Member Role: Primary Care Nurse Name: Hammad Gambino RN Position: [facility] RN Member Role: Primary Care Nurse Name: Kenia Rao RN Position: [facility] RN Member Role: Primary Care Nurse Name: Aamir Gutierrez RN Position: [facility] RN Member Role: Primary Care Nurse Name: Michele Villavicencio RN Position: [facility] RN Member Role: Primary Care Nurse Name: Brown Parada MD Position: [facility] Primary Care Physician Member Role: PCP Address: Address: [address] [place] [address]- [place] Name: Lionel Gu RN Position: [facility] RN Member Role: Primary Care Nurse Name: Emanuel Levin RN Position: [facility] RN Member Role: Primary Care Nurse Name: Charlette Lopez RN Position: [facility] RN Member Role: Primary Care Nurse Name: Melissa Khanna RN Position: [facility] RN Member Role: Primary Care Nurse Name: Elena Sheikh RN Position: [facility] RN Member Role: Primary Care Nurse Name: Theodora Serna RN Position: [facility] PCO RN Member Role: Primary Care Nurse Name: Yang Silva RN Position: [facility] RN Member Role: Primary Care Nurse Name: Xiomara Mario RN Position: [facility] RN Member Role: Primary Care Nurse Name: Suly Morales RN Position: [facility] RN Member Role: Primary Care Nurse Name: Jazmin Quach RN Position: [facility] RN Member Role: Primary Care Nurse Name: Meg Norman RN Position: [facility] RN Member Role: Primary Care Nurse Name: Latanya Garza RN Position: [facility] RN Member Role: Primary Care Nurse Name: Jaimie Gibson RN Position: [facility] RN Member Role: Primary Care Nurse Name: Buffy Schroeder RN Position: [facility] RN Member Role: Primary Care Nurse Name: Lidia Bacon RN Position: [facility] RN Member Role: Primary Care Nurse Name: Carmen Bruner RN Position: [facility] RN Member Role: Primary Care Nurse Name: Kirill Mccartney RN Position: [facility] RN Member Role: Primary Care Nurse Name: Chacha Hassan RN Position: [facility] RN Member Role: Primary Care Nurse Name: Earlene Grayson RN Position: [facility] SN RN Member Role: Primary Care Nurse Name: Cem Carroll MD Position: [facility] Renal MD Member Role: Lifetime Consulting Physician Address: Address: [address] [place] [address] [facility] [address] Name: Dmitry Chua RN Position: [facility] RN Member Role: Primary Care Nurse Name: Aretha Duke RN Position: [facility] RN Member Role: Primary Care Nurse Name: Shilpa Richardson RN Position: [facility] RN Member Role: Primary Care Nurse Name: Eusebia Hassan RN Position: [facility] RN Member Role: Primary Care Nurse Name: Arsalan Cai RN Position: [facility] RN Member Role: Primary Care Nurse Name: Chauncey STEIN Attending Position: [facility] ED Medicine MD Name: Faye Ramirez Position: [facility] ED RN W/OE and Tasks Member Role: Patient Care Provider Name: Mckenzie Clancy Position: [facility] ED OA Charge Member Role: ED Recruiting Consultant Name: Millie Mendoza Position: [facility] ED TA [facility] Member Role: Patient Care Provider Care Team Related Persons Name: JIMENEZ BRUNER Address: [address] [place] [address] Name: ANYA DE JESUS Address: home [address] [place] [id number]
[2022-11-12 17:32] VITALS: BP 129/80; PULSE 108; RESP 18; TEMP 36.8; O2SAT 99
--- NOTE | 2022-11-12 17:47 | HE.PHANOTE ---
pT HAS BEEN ON VANCOMYCIN SINCE 10/11/22 ON S1. cONT SAME DOSE OF 750 MG
[2022-11-12] MEDS: Furosemide 40 MG/4 ML VIAL IVPUSH (18:16)
[2022-11-12] MEDS: Gabapentin 400 MG CAPSULE PO ×2 (18:16→21:27)
[2022-11-12] MEDS: Morphine Sulfate 2 MG/ML CARTRIDGE IVPUSH (19:08)
[2022-11-12 20:00] VITALS: BP 133/83; PULSE 105; RESP 20; TEMP 36.9; O2SAT 93
[2022-11-12 20:58] LABS: Glucose, Whole Blood 132 mg/dL (60-115)
[2022-11-12 21:08] LABS: Troponin-I High Sensitivity 26.3 ng/L (<3.5-35.0)
[2022-11-12] MEDS: Apixaban 5 MG TABLET PO (21:25)
[2022-11-12] MEDS: Atorvastatin Calcium 80 MG TABLET PO (21:26)
[2022-11-12] MEDS: DULoxetine HCl 60 MG CAPSULE.DR PO (21:26)
[2022-11-12] MEDS: Metoprolol Tartrate 25 MG TABLET 75 MG PO (21:27)
[2022-11-12] MEDS: Phenytoin Sodium Extended 100 MG CAPSULE 400 MG PO (21:29)
[2022-11-12] MEDS: 0.9 % Sodium Chloride Flush 3 ML SYRINGE IVFLUSH (21:32)
[2022-11-13] VITALS (9 sets, daily range): BP systolic 119–141; BP diastolic 60–88; PULSE 97–117; RESP 17–20; TEMP 35.6–37.9; O2SAT 91–96; BMI 45.1
[2022-11-13] MEDS: Morphine Sulfate 2 MG/ML CARTRIDGE 1 MG IVPUSH (03:22)
[2022-11-13] MEDS: vancomycin HCL 750 MG in 0.9 % Sodium Chloride 250 ML 265 MG IV ×2 (05:27→17:14)
[2022-11-13] MEDS: Albuterol/Iprat 2.5/0.5MG 3 ML AMPUL.NEB INHALE (05:27)
[2022-11-13 07:12] LABS: Hematocrit 26.2 % (42.0-52.0); Hemoglobin 7.5 g/dl (14.0-18.0); Mean Corpuscular HGB Conc 28.6 g/dl (31.0-36.0); Mean Corpuscular Hemoglobin 21.8 pg (27.0-33.0); Mean Corpuscular Volume 76.2 fL (80.0-98.0); Platelet Count 280 X10*3/uL (160-400); Red Blood Count 3.44 X10*6/uL (4.60-5.80); Red Cell Distribution Width 19.3 % (11.0-16.0); White Blood Count 7.9 X10*3/uL (4.8-10.8)
[2022-11-13 07:21] LABS: Glucose, Whole Blood 139 mg/dL (60-115)
[2022-11-13] MEDS: Omeprazole 20 MG CAPSULE.DR PO (07:52)
[2022-11-13] MEDS: Metoprolol Tartrate 25 MG TABLET 75 MG PO ×2 (09:13→20:44)
[2022-11-13] MEDS: Apixaban 5 MG TABLET PO ×2 (09:13→20:41)
[2022-11-13] MEDS: dilTIAZem HCL CD 120 MG CAP.ER.DEG PO (09:14)
[2022-11-13] MEDS: metFORMIN HCl 1,000 MG TABLET 1000 MG PO (09:14)
[2022-11-13] MEDS: Torsemide 20 MG TABLET 40 MG PO (09:14)
[2022-11-13] MEDS: Phenytoin Sodium Extended 100 MG CAPSULE 200 MG PO (09:14)
[2022-11-13] MEDS: Gabapentin 400 MG CAPSULE PO ×4 (09:15→20:41)
[2022-11-13] MEDS: ARIPiprazole 10 MG TABLET PO (09:15)
[2022-11-13] MEDS: Furosemide 40 MG/4 ML VIAL IVPUSH ×2 (09:16→17:14)
[2022-11-13] MEDS: 0.9 % Sodium Chloride Flush 3 ML SYRINGE IVFLUSH ×3 (09:19→22:58)
--- NOTE | 2022-11-13 10:02 | HO.PM.IMPN ---
Subjective Subjective Date of Service: 11/13/22 Interval History: chest pain down to 5/10 Physical Exam Vital Signs: Vital Signs: Last Vital Signs Temp 98.5 F 11/13/22 07:10 Pulse 100 11/13/22 07:10 Resp 18 11/13/22 07:10 BP 119/67 11/13/22 07:10 Pulse Ox 95 11/13/22 07:10 O2 Del Method Nasal Cannula 11/13/22 07:10 O2 Flow Rate 2 11/13/22 07:10 BMI result Body Mass Index 45.1 General: AO X 3, no acute distress Resp: CTA bilateral, no accessory muscles used CVS: S1,S2,RRR, edema improved GI: soft, non tender, non distended Neuro: motor grossly intact, alert Objective Data Active Medications Acetaminophen (Acetaminophen 325 Mg Tablet) 650 mg PO Q6H PRN PRN Reason: Headache/Pain Mild Scale (1-3) Al Hydroxide/Mg Hydroxide (Magnesium Hydrox/Alum Hydrox 30 Ml Oral.Susp) 30 ml PO Q6H PRN PRN Reason: Heartburn/Nausea Albuterol Sulfate (Albuterol Sulfate 90 Mcg 8 Gm Inhaler) 2 puff INHALE Q4H PRN PRN Reason: Shortness Of Breath Apixaban (Apixaban 5 Mg Tablet) 5 mg PO BID [facility] Last Admin: 11/13/22 09:13 Dose: 5 mg Documented By: JEEVAN Aripiprazole (Aripiprazole 10 Mg Tablet) 10 mg PO DAILY [facility] Last Admin: 11/13/22 09:15 Dose: 10 mg Documented By: JEEVAN Atorvastatin Calcium (Atorvastatin Calcium 80 Mg Tablet) 80 mg PO BEDTIME [facility] Last Admin: 11/12/22 21:26 Dose: 80 mg Documented By: CHELA Diltiazem HCl (Diltiazem Hcl Cd 120 Mg Cap.Er.Deg) 120 mg PO DAILY [facility]; Protocol Last Admin: 11/13/22 09:14 Dose: 120 mg Documented By: JEEVAN Doxycycline Monohydrate (Doxycycline Monohydrate 100 Mg Capsule) 100 mg PO Q12H [facility] Stop: 12/23/22 09:01 Duloxetine HCl (Duloxetine Hcl 60 Mg Capsule.Dr) 60 mg PO BID [facility] Last Admin: 11/12/22 21:26 Dose: 60 mg Documented By: CHELA Ferrous Sulfate (Ferrous Sulfate 324 Mg Tablet.Dr) 324 mg PO MoWeFr@0900 [facility] Furosemide (Furosemide 40 Mg/4 Ml Vial) 40 mg IVPUSH BID@0900,1800 [facility]; Protocol Last Admin: 11/13/22 09:16 Dose: 40 mg Documented By: JEEVAN Gabapentin (Gabapentin 400 Mg Capsule) 400 mg PO QID [facility] Last Admin: 11/13/22 09:15 Dose: 400 mg Documented By: JEEVAN Glucose (Glucose Gel 15 Gm Gel..Gram.) 15 gm PO Q15M PRN; Protocol PRN Reason: per Hypoglycemia Standing Ord. Hydroxyzine HCl (Hydroxyzine Hcl 25 Mg Tablet) 25 mg PO TID PRN PRN Reason: Anxiety Dextrose (D10) 250 mls @ 750 mls/hr IV Q15M PRN; Protocol PRN Reason: per Hypoglycemia Standing Ord. Vancomycin HCl 750 mg/ Sodium (Chloride) 265 mls @ 265 mls/hr IV Q12H [facility] Ibuprofen (Ibuprofen 600 Mg Tablet) 600 mg PO Q6H PRN PRN Reason: Pain, Moderate(Pain Scale 4-6) Insulin Human Lispro (Insulin Lispro 100 Unit/Ml 3 Ml Vial) 0 unit SUBCUT QIDACHS [facility]; Protocol Last Admin: 11/13/22 09:04 Dose: Not Given Documented By: JEEVAN Non-Admin Reason: No Insulin Coverage Lidocaine (Lidocaine 4 % Patch Adh..Patch) 1 patch TRANSDERMA DAILY [facility] Last Admin: 11/13/22 09:24 Dose: Not Given Documented By: JEEVAN Non-Admin Reason: Patient Refused Loperamide HCl (Loperamide Hcl 2 Mg Capsule) 2 mg PO Q4H PRN PRN Reason: Diarrhea Lorazepam (Lorazepam 1 Mg Tablet) 2 mg PO TID PRN PRN Reason: Anxiety Magnesium Hydroxide (Milk Of Magnesia 30 Ml Oral.Susp) 30 ml PO DAILY PRN PRN Reason: Constipation Melatonin (Melatonin 3 Mg Tablet) 3 mg PO BEDTIME PRN PRN Reason: Insomnia Metformin HCl (Metformin Hcl 1,000 Mg Tablet) 1,000 mg PO DAILY [facility] Last Admin: 11/13/22 09:14 Dose: 1,000 mg Documented By: JEEVAN Metoprolol Tartrate (Metoprolol Tartrate 25 Mg Tablet) 75 mg PO BID [facility]; Protocol Last Admin: 11/13/22 09:13 Dose: 75 mg Documented By: JEEVAN Nitroglycerin (Nitroglycerin 0.4 Mg Tab.Subl) 0.4 mg SUBLINGUAL Q5M PRN PRN Reason: Chest Pain Nystatin (Nystatin Powder 15 Gm Bottle) 1 appl TOPICAL BID [facility]; Protocol Omeprazole (Omeprazole 20 Mg Capsule.) 20 mg PO DAILY@0630 [facility] Last Admin: 11/13/22 07:52 Dose: 20 mg Documented By: CHELA Omeprazole (Omeprazole 20 Mg Capsule.) 20 mg PO DAILY@0630 [facility] Ondansetron HCl (Ondansetron Odt 4 Mg Tab.Rapdis) 4 mg TRANSLINGU Q8H PRN PRN Reason: Nausea Pharmacy Consult (Consult Rx Vancomycin Dosing) 1 each MISCELLANE DAILY PRN PRN Reason: Consult order Phenytoin Sodium (Phenytoin Sodium Extended 100 Mg Capsule) 200 mg PO DAILY [facility] Last Admin: 11/13/22 09:14 Dose: 200 mg Documented By: JEEVAN Phenytoin Sodium (Phenytoin Sodium Extended 100 Mg Capsule) 400 mg PO BEDTIME [facility] Last Admin: 11/12/22 21:29 Dose: 400 mg Documented By: CHELA Quetiapine Fumarate (Quetiapine Fumarate 200 Mg Tablet) 200 mg PO BEDTIME [facility] Quetiapine Fumarate (Quetiapine Fumarate 100 Mg Tablet) 100 mg PO BEDTIME PRN PRN Reason: Insomnia Senna (Sennosides 8.6 Mg Tablet) 8.6 mg PO DAILY [facility] Last Admin: 11/13/22 09:24 Dose: Not Given Documented By: JEEVAN Non-Admin Reason: Patient Refused Simethicone (Simethicone 80 Mg Tab.Chew) 80 mg PO TID PRN PRN Reason: Indigestion Sodium Chloride (0.9 % Sodium Chloride Flush 3 Ml Syringe) 3 ml IVFLUSH QSHIFT [facility] Last Admin: 11/13/22 09:19 Dose: 3 ml Documented By: JEEVAN Torsemide (Torsemide 20 Mg Tablet) 40 mg PO DAILY [facility]; Protocol Last Admin: 11/13/22 09:14 Dose: 40 mg Documented By: JEEVAN Trazodone HCl (Trazodone Hcl 50 Mg Tablet) 50 mg PO BEDTIME PRN PRN Reason: Insomnia Labs 11/13/22 07:01 11/13/22 07:01 Labs: Laboratory Results - last 24 hr 11/12/22 11/12/22 11/13/22 20:12 20:53 07:01 MCV 76.2 L MCH 21.8 L MCHC 28.6 L RDW 19.3 H Plt Count 280 MPV 11.0 Absolute Nucleated RBC 0.000 Nucleated RBC % (auto) 0.0 POC Glucose 132 H Troponin I High Sens 26.3 11/13/22 07:13 MCV MCH MCHC RDW Plt Count MPV Absolute Nucleated RBC Nucleated RBC % (auto) POC Glucose 139 H Troponin I High Sens Assessment and Plan (1) Osteomyelitis of foot: Status: Acute Plan 62M PMH paroxysmal afib, severe depression, morbid obesity, DM, chronic diastolic chf, gerd, moderate persistent asthma, epilepsy, HTN, history of CVA, presented with chest pain. Chest pain on Eliquis and statin, and beta-deysi, troponin negative Cardio eval Shortness of breath due to acute on chronic diastolic CHF IV Lasix Morbid obesity Weight loss recommended Paroxysmal atrial fibrillation with rapid ventricular response Continue metoprolol, Eliquis, diltiazem Diabetes Insulin, monitor point of care GERD PPI Moderate persistent asthma No acute exacerbation, bronchodilators as needed Mood disorder with suicidal ideation Continue Cymbalta Abicharlie ?osteomyelitis of right distal 1st phalanx unclear chronicity Continue IV vancomycin until November 21, 2022, then start p.o. doxy Anemia Chronic, multifactorial Due to infection/inflammation, iron deficiency Monitor DVT prophylaxis on Eliquis Full code reason for continued hospitalization:iv diuresis Time Spent With Patient Time: Total time managing care of this patient today ____ minutes. Quality Stroke Does the patient have a stroke diagnosis?: No VTE Prior VTE?: No VTE Risk Level:: Medical - moderate - high VTE Device Contraindication: Treatment Not Indicated VTE Drug Contraindication: N/A - Med Ordered
[2022-11-13] MEDS: Nystatin Powder 15 GM BOTTLE 1 APPL TOPICAL ×2 (10:24→20:45)
[2022-11-13] MEDS: DULoxetine HCl 60 MG CAPSULE.DR PO ×2 (10:26→20:39)
[2022-11-13 10:33] LABS: Anion Gap 14 (12-20); Blood Urea Nitrogen 11 mg/dL (9-16); Calcium 8.2 mg/dL (8.4-10.2); Carbon Dioxide 29 mmol/L (22-29); Chloride 97 mmol/L (96-108); Creatinine Clr Calc Pharmacy 140.9; Estimated Glomerular Filt Rate > 60; Glucose Fasting 157 mg/dL (60-99); Magnesium 1.7 mg/dL (1.6-2.6); Potassium 3.2 mmol/L (3.3-5.1); Sodium 137 mmol/L (135-145)
--- NOTE | 2022-11-13 11:15 | P.CONCA_ITS ---
History of Present Illness History of Present Illness Date of Service: 11/13/22 Requesting physician: Kun Diamond Chief complaint: Chestpain, Afib Narrative: 62-year-old gentleman who we have been consulted to manage atrial fibrillation. He also has chest discomfort. Saying that since yesterday he has been experiencing some left-sided pressure-like feeling. This is a persistent discomfort. He also has AFib with RVR at the same time. He is saying he is not significantly short of breath. He is able to lay flat in bed. He has some peripheral edema and also on the right foot. He has known history of atrial fibrillation and has been on metoprolol succinate, diltiazem 120 mg and Eliquis. He is experiencing some palpitations. Labs and EKG reviewed. [facility] Past Medical History Medical History Anxiety Arthritis Asthma Atrial fibrillation Atrial fibrillation with rapid ventricular response Bladder outlet obstruction Chronic back pain Coronary artery disease Diabetes mellitus, type 2 Fall Hypertension Multifactorial gait disorder Obesity Osteomyelitis of foot PTSD (post-traumatic stress disorder) TIA (transient ischemic attack) Transient ischemic attack (TIA) Weakness Social History Social History Household Members: None Housing: Apartment Do you presently have visiting nurse or other home services: Yes (reports [employer] quit) Alcohol intake: never Patient Tobacco Use Status: Never used Tobacco e-Cigarette/Vaping Use: Never Used Second Hand Smoke Exposure: No Use of substances other than those prescribed or required for medical reasons: No Currently Displaying Signs/Symptoms of Drug Intoxication Withdrawal: No Have you been hit, kicked, punched, or otherwise hurt by someone within the past year? If so, by whom?: No Do you feel safe in your current relationship?: No Current Relationship Is there a partner from a previous relationship who is making you feel unsafe now?: No Are you made to feel afraid or neglected: No Christian Healthcare Practices: Muslim Advance Directives: Yes Advance Directives on File: Yes Advance Directives Date on File: 07/27/22 Do you have thoughts of harming others: None Do you have a plan to hurt others: No Plan Recently lost weight without trying: Yes How much weight loss: 34pounds or more Eating poorly because of decreased appetite: No Nutrition screen score: 6 Nutrition Risks: No Nutritional Risk Poor oral hygiene: No service: No Current occupational status: disabled Sexual orientation: Straight/Heterosexual Meds Allergies Allergy/AdvReac Type Severity Reaction Status Date / Time aspirin Allergy Severe Ocassional Verified 11/09/22 08:53 rash, Hives, throat and tongue swelling bee pollen [BEE STINGS] Allergy Severe Anaphylaxis Verified 11/09/22 08:53 Penicillins Allergy Severe Anaphylaxis Verified 11/09/22 08:53 povidone-iodine [Betadine] Allergy Severe Redness of Verified 04/08/22 14:18 Skin soap [Betadine] Allergy Severe Redness of Verified 04/08/22 14:18 Skin spider venom [SPIDER BITES] Allergy Severe Hives Verified 04/08/22 14:18 amoxicillin Allergy Intermediate Hives Verified 04/08/22 14:18 adhesive tape Allergy Mild Rash Verified 11/09/22 08:53 clindamycin Allergy Mild Rash Verified 11/09/22 08:53 latex [Latex] Allergy Mild Rash Verified 11/09/22 08:53 shrimp Allergy Hives Verified 06/21/22 11:48 bupropion [From WELLBUTRIN] AdvReac Severe Seizure Verified 11/09/22 08:53 Active Medications: Current Medications Acetaminophen (Acetaminophen 325 Mg Tablet) 650 mg PO Q6H PRN PRN Reason: Headache/Pain Mild Scale (1-3) Al Hydroxide/Mg Hydroxide (Magnesium Hydrox/Alum Hydrox 30 Ml Oral.Susp) 30 ml PO Q6H PRN PRN Reason: Heartburn/Nausea Albuterol Sulfate (Albuterol Sulfate 90 Mcg 8 Gm Inhaler) 2 puff INHALE Q4H PRN PRN Reason: Shortness Of Breath Apixaban (Apixaban 5 Mg Tablet) 5 mg PO BID [facility] Last Admin: 11/13/22 09:13 Dose: 5 mg Aripiprazole (Aripiprazole 10 Mg Tablet) 10 mg PO DAILY [facility] Last Admin: 11/13/22 09:15 Dose: 10 mg Atorvastatin Calcium (Atorvastatin Calcium 80 Mg Tablet) 80 mg PO BEDTIME [facility] Last Admin: 11/12/22 21:26 Dose: 80 mg Diltiazem HCl (Diltiazem Hcl Cd 120 Mg Cap.Er.Deg) 120 mg PO DAILY [facility]; Protocol Last Admin: 11/13/22 09:14 Dose: 120 mg Doxycycline Monohydrate (Doxycycline Monohydrate 100 Mg Capsule) 100 mg PO Q12H [facility] Stop: 12/23/22 09:01 Duloxetine HCl (Duloxetine Hcl 60 Mg Capsule.) 60 mg PO BID [facility] Last Admin: 11/13/22 10:26 Dose: 60 mg Ferrous Sulfate (Ferrous Sulfate 324 Mg Tablet.) 324 mg PO MoWeFr@0900 [facility] Furosemide (Furosemide 40 Mg/4 Ml Vial) 40 mg IVPUSH BID@0900,1800 [facility]; Protocol Last Admin: 11/13/22 09:16 Dose: 40 mg Gabapentin (Gabapentin 400 Mg Capsule) 400 mg PO QID [facility] Last Admin: 11/13/22 09:15 Dose: 400 mg Glucose (Glucose Gel 15 Gm Gel..Gram.) 15 gm PO Q15M PRN; Protocol PRN Reason: per Hypoglycemia Standing Ord. Hydroxyzine HCl (Hydroxyzine Hcl 25 Mg Tablet) 25 mg PO TID PRN PRN Reason: Anxiety Dextrose (D10) 250 mls @ 750 mls/hr IV Q15M PRN; Protocol PRN Reason: per Hypoglycemia Standing Ord. Vancomycin HCl 750 mg/ Sodium (Chloride) 265 mls @ 265 mls/hr IV Q12H [facility]OH[facility] Ibuprofen (Ibuprofen 600 Mg Tablet) 600 mg PO Q6H PRN PRN Reason: Pain, Moderate(Pain Scale 4-6) Insulin Human Lispro (Insulin Lispro 100 Unit/Ml 3 Ml Vial) 0 unit SUBCUT QIDACHS [facility]; Protocol Last Admin: 11/13/22 09:04 Dose: Not Given Lidocaine (Lidocaine 4 % Patch Adh..Patch) 1 patch TRANSDERMA DAILY [facility] Last Admin: 11/13/22 09:24 Dose: Not Given Loperamide HCl (Loperamide Hcl 2 Mg Capsule) 2 mg PO Q4H PRN PRN Reason: Diarrhea Lorazepam (Lorazepam 1 Mg Tablet) 2 mg PO TID PRN PRN Reason: Anxiety Magnesium Hydroxide (Milk Of Magnesia 30 Ml Oral.Susp) 30 ml PO DAILY PRN PRN Reason: Constipation Melatonin (Melatonin 3 Mg Tablet) 3 mg PO BEDTIME PRN PRN Reason: Insomnia Metformin HCl (Metformin Hcl 1,000 Mg Tablet) 1,000 mg PO DAILY [facility] Last Admin: 11/13/22 09:14 Dose: 1,000 mg Metoprolol Tartrate (Metoprolol Tartrate 25 Mg Tablet) 75 mg PO BID [facility]; Protocol Last Admin: 11/13/22 09:13 Dose: 75 mg Nitroglycerin (Nitroglycerin 0.4 Mg Tab.Subl) 0.4 mg SUBLINGUAL Q5M PRN PRN Reason: Chest Pain Nystatin (Nystatin Powder 15 Gm Bottle) 1 appl TOPICAL BID [facility]; Protocol Last Admin: 11/13/22 10:24 Dose: 1 appl Omeprazole (Omeprazole 20 Mg Capsule.Dr) 20 mg PO DAILY@629 [facility] Last Admin: 11/13/22 07:52 Dose: 20 mg Omeprazole (Omeprazole 20 Mg Capsule.Dr) 20 mg PO DAILY@30 [facility] Ondansetron HCl (Ondansetron Odt 4 Mg Tab.Rapdis) 4 mg TRANSLINGU Q8H PRN PRN Reason: Nausea Pharmacy Consult (Consult Rx Vancomycin Dosing) 1 each MISCELLANE DAILY PRN PRN Reason: Consult order Phenytoin Sodium (Phenytoin Sodium Extended 100 Mg Capsule) 200 mg PO DAILY [facility] Last Admin: 11/13/22 09:14 Dose: 200 mg Phenytoin Sodium (Phenytoin Sodium Extended 100 Mg Capsule) 400 mg PO BEDTIME [facility] Last Admin: 11/12/22 21:29 Dose: 400 mg Quetiapine Fumarate (Quetiapine Fumarate 200 Mg Tablet) 200 mg PO BEDTIME [facility] Quetiapine Fumarate (Quetiapine Fumarate 100 Mg Tablet) 100 mg PO BEDTIME PRN PRN Reason: Insomnia Senna (Sennosides 8.6 Mg Tablet) 8.6 mg PO DAILY [facility] Last Admin: 11/13/22 09:24 Dose: Not Given Simethicone (Simethicone 80 Mg Tab.Chew) 80 mg PO TID PRN PRN Reason: Indigestion Sodium Chloride (0.9 % Sodium Chloride Flush 3 Ml Syringe) 3 ml IVFLUSH QSHIFT [facility] Last Admin: 11/13/22 09:19 Dose: 3 ml Torsemide (Torsemide 20 Mg Tablet) 40 mg PO DAILY [facility]; Protocol Last Admin: 11/13/22 09:14 Dose: 40 mg Trazodone HCl (Trazodone Hcl 50 Mg Tablet) 50 mg PO BEDTIME PRN PRN Reason: Insomnia Home Medications Medication Instructions Recorded Confirmed Last Taken Type apixaban 5 mg tablet (Eliquis) 1 tab PO BID 07/08/22 11/12/22 Unknown History hydroxyzine HCl 25 mg tablet 1 tab PO TID PRN Anxiety 07/08/22 11/12/22 Unknown History lorazepam 2 mg tablet 1 tab PO TID PRN Anxiety 07/08/22 11/12/22 Unknown History metformin 1,000 mg tablet 1 tab PO DAILY 07/08/22 11/12/22 Unknown History oxycodone 5 mg tablet 1 tab PO TID PRN Pain 07/08/22 11/12/22 Unknown History pantoprazole 40 mg tablet,delayed 1 tab PO DAILY@0630 07/08/22 11/12/22 Unknown History release phenytoin sodium extended 100 mg 200 mg PO DAILY 07/08/22 11/12/22 Unknown Hi story capsule trazodone 50 mg tablet 1 tab PO BEDTIME 07/08/22 11/12/22 Unknown History acetaminophen 500 mg tablet 1,000 mg PO BID PRN Pain 07/09/22 11/12/22 Unknown History albuterol sulfate 90 mcg/actuation 2 puff inhalation Q4-6H PRN 07/09/22 11/12/22 Unknown History aerosol inhaler (ProAir HFA) Shortness Of Breath atorvastatin 80 mg tablet 1 tab PO DAILY 07/09/22 11/12/22 Unknown History duloxetine 30 mg capsule,delayed 60 mg PO BID 07/09/22 11/12/22 Unknown History release fluticasone propionate 50 1 spray intranasal BID 07/09/22 11/12/22 Unknown History mcg/actuation nasal spray,suspension gabapentin 400 mg capsule 1 cap PO 5XD 07/09/22 11/12/22 Unknown History insulin lispro 100 unit/mL 2 - 10 unit subcut TIDAC 07/09/22 11/12/22 Unknown History subcutaneous pen phenytoin sodium extended 100 mg 400 mg PO BEDTIME 07/09/22 11/12/22 Unknown History capsule quetiapine 100 mg tablet 1 tab PO BEDTIME PRN Insomnia 07/09/22 11/12/22 Unknown History quetiapine 200 mg tablet 1 tab PO BID 07/09/22 11/12/22 Unknown History torsemide 20 mg tablet 1 tab PO DAILY 07/09/22 11/12/22 Unknown History ferrous sulfate 324 mg (65 mg 324 mg PO DIRECTED 07/30/22 11/12/22 Unknown History iron) tablet,delayed release aripiprazole 5 mg tablet 7.5 mg PO DAILY 10/04/22 11/12/22 Unknown History calamine See Rx Instructions .Route .COMPLEX 10/04/22 11/12/22 Unknown History diltiazem HCl 120 mg capsule,24 120 mg PO DAILY@11 10/04/22 11/12/22 Unknown History hr,extended release lidocaine 5 % topical patch 1 patch topical DAILY 10/04/22 11/12/22 Unknown History melatonin 3 mg tablet 3 mg PO BEDTIME PRN Insomnia 10/04/22 11/12/22 Unknown History metoprolol succinate 25 mg 75 mg PO DAILY 10/04/22 11/12/22 Unknown History tablet,extended release 24 hr nitroglycerin 0.4 mg sublingual 0.4 mg sublingual Q5M PRN Chest 10/04/22 11/12/22 Unknown History tablet Pain nystatin 100,000 unit/gram topical 1 appl topical BID 10/04/22 11/12/22 Unknown History powder ondansetron 4 mg disintegrating 4 mg PO Q6H PRN Nausea 10/04/22 11/12/22 Unknown History tablet sennosides 8.6 mg tablet (senna) 8.6 mg PO DAILY 10/04/22 11/12/22 Unknown History simethicone 80 mg tablet 80 mg PO TID PRN Indigestion 10/04/22 11/12/22 Unknown History Physical Exam Vital Signs: Vital Signs: Last Vital Signs Temp 98.5 F 11/13/22 07:10 Pulse 100 11/13/22 07:10 Resp 18 11/13/22 07:10 BP 119/67 11/13/22 07:10 Pulse Ox 95 11/13/22 07:10 O2 Del Method Nasal Cannula 11/13/22 07:10 O2 Flow Rate 2 11/13/22 07:10 BMI result Body Mass Index 45.1 GENERAL APPEARANCE: in no acute distress, pleasant. NECK: no carotid bruit, mild jugular venous distention. SKIN: no suspicious lesions, warm and dry. HEART: no murmurs, irregular rate and rhythm. LUNGS: clear to auscultation bilaterally. ABDOMEN: soft, nontender. EXTREMITIES: mild edema. PERIPHERAL PULSES: equal. NEUROLOGIC: No gross deficits, AAO X 3 Objective Labs and Meds 11/13/22 07:01 11/13/22 07:01 Lab results: Laboratory Results - last 24 hr 11/12/22 11/12/22 11/13/22 20:12 20:53 07:01 WBC 7.9 RBC 3.44 L Hgb 7.5 L Hct 26.2 L MCV 76.2 L MCH 21.8 L MCHC 28.6 L RDW 19.3 H Plt Count 280 MPV 11.0 Absolute Nucleated RBC 0.000 Nucleated RBC % (auto) 0.0 Sodium Potassium Chloride Carbon Dioxide Anion Gap BUN Creatinine Estim Creat Clear Calc Estimated GFR POC Glucose 132 H Fasting Glucose Calcium Magnesium Troponin I High Sens 26.3 11/13/22 11/13/22 07:01 07:13 WBC RBC Hgb Hct MCV MCH MCHC RDW Plt Count MPV Absolute Nucleated RBC Nucleated RBC % (auto) Sodium 137 Potassium 3.2 L Chloride 97 Carbon Dioxide 29 Anion Gap 14 BUN 11 Creatinine 0.87 Estim Creat Clear Calc 140.9 Estimated GFR > 60 POC Glucose 139 H Fasting Glucose 157 H Calcium 8.2 L Magnesium 1.7 Troponin I High Sens Imaging Radiologist's impression: Impressions Chest X-Ray 11/12/22 16:38 IMPRESSION: No evidence for acute disease in the chest. Assessment and Plan (1) Atrial fibrillation with rapid ventricular response: Status: Acute (2) Chest pain: Status: Resolved Plan 62-year-old gentleman with AFib with RVR and chest pain. He has atypical sounding chest pain which is persistent discomfort ongoing since yesterday with normal troponin levels. He has been in AFib with RVR it is possible that the chest discomfort is due to atrial fibrillation. Increase the diltiazem to 240 mg once a day. Continue metoprolol and Eliquis as before. We will follow along with you. Thank you for allowing me to participate in the care of your patient. Please feel free to contact me if you have any questions. Time Spent With Patient Time: Total time managing care of this patient today ____ minutes. Procedures Date of Service Date of Service: 11/13/22
[2022-11-13 11:35] LABS: Glucose, Whole Blood 222 mg/dL (60-115)
[2022-11-13] MEDS: Insulin Lispro 100 UNIT/ML 3 ML VIAL SUBCUT (12:35)
[2022-11-13] MEDS: Omeprazole 40 MG CAPSULE.DR PO (12:36)
[2022-11-13 12:37] LABS: Troponin-I High Sensitivity 30.1 ng/L (<3.5-35.0)
[2022-11-13] MEDS: LORazepam 1 MG TABLET 2 MG PO (12:40)
--- NOTE | 2022-11-13 15:06 | MHC.CM.PN ---
Addendum entered by Janice Pablo 11/15/22 08:53: [facility] INDICATED PT IS NOT ACTIVE WITH THEM PER EMR, PT WAS PREVIOUSLY DISCHARGED WITH [facility] REFERRAL PLACED TO THEM Original Note: PT REPORTS HE LIVES ALONE AND IS INDEPENDENT WITH PERSONAL CARE HE REPORTS HE IS ACTIVE WITH [facility] AND HAS NO OTHER SERVICES PT DENIES HAVING ANY DME PT REPORTS HE HAS A HCP, COPY REQUESTED HE REPORTS HIS PCP IS DR JIMENEZ IN [facility] WITH [facility] OF [facility] SERVICES VIA FAMILY TRANSPORT
[2022-11-13 15:34] LABS: Vancomycin Trough 15.6 mcg/mL (10.0-20.0)
--- NOTE | 2022-11-13 15:41 | HE.PHANOTE ---
Vancomycin Dosing Level 15.6 today. Continue current regimen. Next level 11/14 @ 1500. Randy BrarD
[2022-11-13 16:29] LABS: Glucose, Whole Blood 144 mg/dL (60-115)
[2022-11-13] MEDS: oxyCODONE HCl Immed Release 5 MG TABLET PO ×2 (17:13→23:53)
[2022-11-13 19:25] LABS: Glucose, Whole Blood 133 mg/dL (60-115)
[2022-11-13] MEDS: QUEtiapine Fumarate 200 MG TABLET PO (20:41)
[2022-11-13] MEDS: Atorvastatin Calcium 80 MG TABLET PO (20:44)
[2022-11-13] MEDS: Phenytoin Sodium Extended 100 MG CAPSULE 400 MG PO (20:45)
[2022-11-13] MEDS: Loperamide HCl 2 MG CAPSULE PO (20:57)
[2022-11-13 22:07] LABS: Glucose, Whole Blood 136 mg/dL (60-115)
[2022-11-13] MEDS: Albuterol Sulfate 90 MCG 8 GM INHALER 2 PUFF INHALE (22:35)
[2022-11-13] MEDS: QUEtiapine Fumarate 100 MG TABLET PO (23:54)
[2022-11-13] MEDS: hydrOXYzine HCL 25 MG TABLET PO (23:54)
[2022-11-13] MEDS: Simethicone 80 MG TAB.CHEW PO (23:54)
[2022-11-14] VITALS (9 sets, daily range): BP systolic 103–134; BP diastolic 53–95; PULSE 92–123; RESP 17–24; TEMP 36.3–37.2; O2SAT 90–98
[2022-11-14] MEDS: vancomycin HCL 750 MG in 0.9 % Sodium Chloride 250 ML 265 MG IV ×2 (05:33→17:42)
[2022-11-14] MEDS: oxyCODONE HCl Immed Release 5 MG TABLET PO ×4 (05:37→21:41)
[2022-11-14] MEDS: Omeprazole 20 MG CAPSULE.DR PO (05:38)
[2022-11-14 06:45] LABS: Hematocrit 25.1 % (42.0-52.0); Hemoglobin 7.1 g/dl (14.0-18.0); Mean Corpuscular HGB Conc 28.3 g/dl (31.0-36.0); Mean Corpuscular Hemoglobin 21.4 pg (27.0-33.0); Mean Corpuscular Volume 75.6 fL (80.0-98.0); Mean Platelet Volume 10.6 fL (9.4-12.4); Platelet Count 291 X10*3/uL (160-400); Red Blood Count 3.32 X10*6/uL (4.60-5.80); Red Cell Distribution Width 19.4 % (11.0-16.0); White Blood Count 7.7 X10*3/uL (4.8-10.8)
[2022-11-14 06:49] LABS: Anion Gap 11 (12-20); Blood Urea Nitrogen 11 mg/dL (9-16); Calcium 8.1 mg/dL (8.4-10.2); Carbon Dioxide 36 mmol/L (22-29); Chloride 97 mmol/L (96-108); Creatinine Clr Calc Pharmacy 142.5; Estimated Glomerular Filt Rate > 60; Glucose Fasting 188 mg/dL (60-99); Potassium 3.1 mmol/L (3.3-5.1); Sodium 141 mmol/L (135-145)
[2022-11-14 07:38] LABS: Glucose, Whole Blood 171 mg/dL (60-115)
[2022-11-14] MEDS: Furosemide 40 MG/4 ML VIAL IVPUSH (08:35)
[2022-11-14] MEDS: Insulin Lispro 100 UNIT/ML 3 ML VIAL SUBCUT ×2 (08:37→12:19)
[2022-11-14] MEDS: 0.9 % Sodium Chloride Flush 3 ML SYRINGE IVFLUSH ×3 (08:39→20:55)
--- NOTE | 2022-11-14 08:44 | P.PNIM_ITS ---
Subjective Subjective Date of Service: 11/14/22 Interval History: imprvoing Physical Exam Vital Signs: Vital Signs: Last Vital Signs Temp 98.1 F 11/14/22 08:00 Pulse 103 H 11/14/22 08:00 Resp 18 11/14/22 08:00 BP 116/66 11/14/22 08:00 Pulse Ox 95 11/14/22 08:00 O2 Del Method Nasal Cannula 11/14/22 08:00 O2 Flow Rate 2 11/14/22 08:00 BMI result Body Mass Index 45.1 GENERAL APPEARANCE: in no acute distress, pleasant. NECK: no carotid bruit, mild jugular venous distention. SKIN: no suspicious lesions, warm and dry. HEART: no murmurs, irregular rate and rhythm. LUNGS: clear to auscultation bilaterally. ABDOMEN: soft, nontender. EXTREMITIES: mild edema. PERIPHERAL PULSES: equal. NEUROLOGIC: No gross deficits, AAO X 3 Objective Data Active Medications Acetaminophen (Acetaminophen 325 Mg Tablet) 650 mg PO Q6H PRN PRN Reason: Headache/Pain Mild Scale (1-3) Al Hydroxide/Mg Hydroxide (Magnesium Hydrox/Alum Hydrox 30 Ml Oral.Susp) 30 ml PO Q6H PRN PRN Reason: Heartburn/Nausea Albuterol Sulfate (Albuterol Sulfate 90 Mcg 8 Gm Inhaler) 2 puff INHALE Q4H PRN PRN Reason: Shortness Of Breath Last Admin: 11/13/22 22:35 Dose: 2 puff Documented By: TABBY Apixaban (Apixaban 5 Mg Tablet) 5 mg PO BID [facility] Last Admin: 11/13/22 20:41 Dose: 5 mg Documented By: GIAN Aripiprazole (Aripiprazole 10 Mg Tablet) 10 mg PO DAILY [facility] Last Admin: 11/13/22 09:15 Dose: 10 mg Documented By: JEEVAN Atorvastatin Calcium (Atorvastatin Calcium 80 Mg Tablet) 80 mg PO BEDTIME [facility] Last Admin: 11/13/22 20:44 Dose: 80 mg Documented By: GIAN Diltiazem HCl (Diltiazem Hcl Cd 240 Mg Cap.Er.Deg) 240 mg PO DAILY [facility]; Protocol Doxycycline Monohydrate (Doxycycline Monohydrate 100 Mg Capsule) 100 mg PO Q12H [facility] Stop: 12/23/22 09:01 Duloxetine HCl (Duloxetine Hcl 60 Mg Capsule.) 60 mg PO BID [facility] Last Admin: 11/13/22 20:39 Dose: 60 mg Documented By: GIAN Ferrous Sulfate (Ferrous Sulfate 324 Mg Tablet.) 324 mg PO MoWeFr@0900 [facility] Furosemide (Furosemide 40 Mg/4 Ml Vial) 40 mg IVPUSH BID@0900,1800 [facility]; Protocol Last Admin: 11/14/22 08:35 Dose: 40 mg Documented By: ABDIAZIZ Gabapentin (Gabapentin 400 Mg Capsule) 400 mg PO QID [facility] Last Admin: 11/13/22 20:41 Dose: 400 mg Documented By: GIAN Glucose (Glucose Gel 15 Gm Gel..Gram.) 15 gm PO Q15M PRN; Protocol PRN Reason: per Hypoglycemia Standing Ord. Hydroxyzine HCl (Hydroxyzine Hcl 25 Mg Tablet) 25 mg PO TID PRN PRN Reason: Anxiety Last Admin: 11/13/22 23:54 Dose: 25 mg Documented By: GIAN Dextrose (D10) 250 mls @ 750 mls/hr IV Q15M PRN; Protocol PRN Reason: per Hypoglycemia Standing Ord. Vancomycin HCl 750 mg/ Sodium (Chloride) 265 mls @ 265 mls/hr IV Q12H [facility] Last Infusion: 11/14/22 08:33 Dose: 0 mls/hr Documented By: ABDIAZIZ Ibuprofen (Ibuprofen 600 Mg Tablet) 600 mg PO Q6H PRN PRN Reason: Pain, Moderate(Pain Scale 4-6) Insulin Human Lispro (Insulin Lispro 100 Unit/Ml 3 Ml Vial) 0 unit SUBCUT QIDACHS [facility]; Protocol Last Admin: 11/14/22 08:37 Dose: 2 unit Documented By: ABDIAZIZ Lidocaine (Lidocaine 4 % Patch Adh..Patch) 1 patch TRANSDERMA DAILY [facility] Last Admin: 11/13/22 09:24 Dose: Not Given Documented By: JEEVAN Non-Admin Reason: Patient Refused Loperamide HCl (Loperamide Hcl 2 Mg Capsule) 2 mg PO Q4H PRN PRN Reason: Diarrhea Last Admin: 11/13/22 20:57 Dose: 2 mg Documented By: GIAN Lorazepam (Lorazepam 1 Mg Tablet) 2 mg PO TID PRN PRN Reason: Anxiety Last Admin: 11/13/22 12:40 Dose: 2 mg Documented By: LARRY Magnesium Hydroxide (Milk Of Magnesia 30 Ml Oral.Susp) 30 ml PO DAILY PRN PRN Reason: Constipation Melatonin (Melatonin 3 Mg Tablet) 3 mg PO BEDTIME PRN PRN Reason: Insomnia Metformin HCl (Metformin Hcl 1,000 Mg Tablet) 1,000 mg PO DAILY [facility] Last Admin: 11/13/22 09:14 Dose: 1,000 mg Documented By: JEEVAN Metoprolol Tartrate (Metoprolol Tartrate 25 Mg Tablet) 75 mg PO BID [facility]; Protocol Last Admin: 11/13/22 20:44 Dose: 75 mg Documented By: GIAN Nitroglycerin (Nitroglycerin 0.4 Mg Tab.Subl) 0.4 mg SUBLINGUAL Q5M PRN PRN Reason: Chest Pain Nystatin (Nystatin Powder 15 Gm Bottle) 1 appl TOPICAL BID [facility]; Protocol Last Admin: 11/13/22 20:45 Dose: 1 appl Documented By: GIAN Omeprazole (Omeprazole 20 Mg Capsule.Dr) 20 mg PO DAILY@0630 [facility] Last Admin: 11/14/22 05:38 Dose: 20 mg Documented By: GIAN Ondansetron HCl (Ondansetron Odt 4 Mg Tab.Rapdis) 4 mg TRANSLINGU Q8H PRN PRN Reason: Nausea Oxycodone HCl (Oxycodone Hcl Immed Release 5 Mg Tablet) 5 mg PO Q4H PRN PRN Reason: Pain, Moderate(Pain Scale 4-6) Last Admin: 11/14/22 05:37 Dose: 5 mg Documented By: GIAN Pharmacy Consult (Consult Rx Vancomycin Dosing) 1 each MISCELLANE DAILY PRN PRN Reason: Consult order Phenytoin Sodium (Phenytoin Sodium Extended 100 Mg Capsule) 200 mg PO DAILY [facility] Last Admin: 11/13/22 09:14 Dose: 200 mg Documented By: JEEVAN Phenytoin Sodium (Phenytoin Sodium Extended 100 Mg Capsule) 400 mg PO BEDTIME [facility] Last Admin: 11/13/22 20:45 Dose: 400 mg Documented By: GIAN Quetiapine Fumarate (Quetiapine Fumarate 200 Mg Tablet) 200 mg PO BEDTIME [facility] Last Admin: 11/13/22 20:41 Dose: 200 mg Documented By: GIAN Quetiapine Fumarate (Quetiapine Fumarate 100 Mg Tablet) 100 mg PO BEDTIME PRN PRN Reason: Insomnia Last Admin: 11/13/22 23:54 Dose: 100 mg Documented By: GIAN Senna (Sennosides 8.6 Mg Tablet) 8.6 mg PO DAILY [facility] Last Admin: 11/13/22 09:24 Dose: Not Given Documented By: JEEVAN Non-Admin Reason: Patient Refused Simethicone (Simethicone 80 Mg Tab.Chew) 80 mg PO TID PRN PRN Reason: Indigestion Last Admin: 11/13/22 23:54 Dose: 80 mg Documented By: GIAN Sodium Chloride (0.9 % Sodium Chloride Flush 3 Ml Syringe) 3 ml IVFLUSH QSHIFT [facility] Last Admin: 11/14/22 08:39 Dose: 3 ml Documented By: ABDIAZIZ Torsemide (Torsemide 20 Mg Tablet) 40 mg PO DAILY [facility]; Protocol Last Admin: 11/13/22 09:14 Dose: 40 mg Documented By: JEEVAN Trazodone HCl (Trazodone Hcl 50 Mg Tablet) 50 mg PO BEDTIME PRN PRN Reason: Insomnia Labs 11/14/22 05:46 11/14/22 05:46 Labs: Laboratory Results - last 24 hr 11/13/22 11/13/22 11/13/22 07:01 11:30 11:38 MCV MCH MCHC RDW Plt Count MPV Absolute Nucleated RBC Nucleated RBC % (auto) Anion Gap 14 Estim Creat Clear Calc 140.9 Estimated GFR > 60 POC Glucose 222 H Fasting Glucose 157 H Calcium 8.2 L Magnesium 1.7 Troponin I High Sens 30.1 Vancomycin Trough Blood Type Antibody Screen Crossmatch 11/13/22 11/13/22 11/13/22 15:00 16:17 18:57 MCV MCH MCHC RDW Plt Count MPV Absolute Nucleated RBC Nucleated RBC % (auto) Anion Gap Estim Creat Clear Calc Estimated GFR POC Glucose 144 H 133 H Fasting Glucose Calcium Magnesium Troponin I High Sens Vancomycin Trough 15.6 Blood Type Antibody Screen Crossmatch 11/13/22 11/14/22 11/14/22 22:04 05:46 05:46 MCV 75.6 L MCH 21.4 L MCHC 28.3 L RDW 19.4 H Plt Count 291 MPV 10.6 Absolute Nucleated RBC 0.000 Nucleated RBC % (auto) 0.0 Anion Gap 11 L Estim Creat Clear Calc 142.5 Estimated GFR > 60 POC Glucose 136 H Fasting Glucose 188 H Calcium 8.1 L Magnesium Troponin I High Sens Vancomycin Trough Blood Type Antibody Screen Crossmatch 11/14/22 11/14/22 07:32 07:34 MCV MCH MCHC RDW Plt Count MPV Absolute Nucleated RBC Nucleated RBC % (auto) Anion Gap Estim Creat Clear Calc Estimated GFR POC Glucose 171 H Fasting Glucose Calcium Magnesium Troponin I High Sens Vancomycin Trough Blood Type A Positive Antibody Screen NEGATIVE Crossmatch See Detail Assessment and Plan (1) Osteomyelitis of foot: Status: Acute Plan 62M PMH paroxysmal afib, severe depression, morbid obesity, DM, chronic diastolic chf, gerd, moderate persistent asthma, epilepsy, HTN, history of CVA, presented with chest pain. Chest pain on Eliquis and statin, and beta-deysi, troponin negative Cardio appreciated, unlikely cardiace Shortness of breath due to acute on chronic diastolic CHF continue IV Lasix acute on chronic anemia iron defeciecny, inflammatory will transfuse 1 unit prbc, monitor Morbid obesity Weight loss recommended Paroxysmal atrial fibrillation with rapid ventricular response Continue metoprolol, Eliquis, diltiazem increased to 240mg daily Diabetes Insulin, monitor point of care GERD PPI Moderate persistent asthma No acute exacerbation, bronchodilators as needed Mood disorder with suicidal ideation Continue Cymbalta, Abilify ?osteomyelitis of right distal 1st phalanx unclear chronicity Continue IV vancomycin until November 21, 2022, then start p.o. doxy DVT prophylaxis on Eliquis Full code reason for continued hospitalization:iv diuresis Time Spent With Patient Time: Total time managing care of this patient today ____ minutes. Quality Stroke Does the patient have a stroke diagnosis?: No VTE Prior VTE?: No VTE Risk Level:: Medical - moderate - high VTE Device Contraindication: Treatment Not Indicated VTE Drug Contraindication: N/A - Med Ordered
[2022-11-14] MEDS: Metoprolol Tartrate 25 MG TABLET 75 MG PO ×2 (10:45→20:54)
[2022-11-14] MEDS: LORazepam 1 MG TABLET 2 MG PO (10:45)
[2022-11-14] MEDS: dilTIAZem HCL CD 240 MG CAP.ER.DEG PO (10:46)
[2022-11-14] MEDS: Potassium Chloride ER 20 MEQ TAB.ER.PRT 40 MEQ PO (10:46)
[2022-11-14] MEDS: Phenytoin Sodium Extended 100 MG CAPSULE 200 MG PO (10:46)
[2022-11-14] MEDS: Gabapentin 400 MG CAPSULE PO ×4 (10:46→20:55)
[2022-11-14] MEDS: Apixaban 5 MG TABLET PO ×2 (10:47→20:54)
[2022-11-14] MEDS: Torsemide 20 MG TABLET 40 MG PO (10:47)
[2022-11-14] MEDS: metFORMIN HCl 1,000 MG TABLET 1000 MG PO (10:47)
[2022-11-14] MEDS: ARIPiprazole 10 MG TABLET PO (10:47)
[2022-11-14] MEDS: DULoxetine HCl 60 MG CAPSULE.DR PO ×2 (10:47→20:55)
[2022-11-14] MEDS: Nystatin Powder 15 GM BOTTLE 1 APPL TOPICAL ×2 (10:48→20:55)
[2022-11-14 11:46] LABS: Glucose, Whole Blood 207 mg/dL (60-115)
[2022-11-14 15:33] LABS: Vancomycin Trough 14.7 mcg/mL (10.0-20.0)
--- NOTE | 2022-11-14 15:42 | HE.PHANOTE ---
Vazquez Calixto Level 14.7 today, Continue current regimen. Renal function is stable. Next level 11/15 @ 1500. Diane Paredes, RandyD
[2022-11-14 16:45] LABS: Glucose, Whole Blood 133 mg/dL (60-115)
[2022-11-14 20:45] LABS: Glucose, Whole Blood 149 mg/dL (60-115)
[2022-11-14] MEDS: QUEtiapine Fumarate 200 MG TABLET PO (20:54)
[2022-11-14] MEDS: Phenytoin Sodium Extended 100 MG CAPSULE 400 MG PO (20:55)
[2022-11-14] MEDS: Atorvastatin Calcium 80 MG TABLET PO (20:55)
[2022-11-14] MEDS: Acetaminophen 325 MG TABLET 650 MG PO (21:41)
[2022-11-15] VITALS (9 sets, daily range): BP systolic 117–125; BP diastolic 68–79; PULSE 96–127; RESP 20–32; TEMP 36.7–37.5; O2SAT 91–96
--- NOTE | 2022-11-15 | ECG_ITS ---
Test Reason : chest pain Blood Pressure : / mmHG Vent. Rate : 110 BPM Atrial Rate : 000 BPM P-R Int : 000 ms QRS Dur : 156 ms QT Int : 324 ms P-R-T Axes : 000 -84 036 degrees QTc Int : 438 ms Atrial fibrillation with rapid ventricular response Left axis deviation Right bundle branch block Inferior infarct , age undetermined Abnormal ECG Referred By: Rachna Foley Electronically Signed By:NANCY HOLT MD
[2022-11-15] MEDS: Nitroglycerin 0.4 MG TAB.SUBL SUBLINGUAL ×3 (04:13→18:29)
[2022-11-15] MEDS: Morphine Sulfate 2 MG/ML CARTRIDGE 1 MG IVPUSH (04:49)
[2022-11-15] MEDS: vancomycin HCL 750 MG in 0.9 % Sodium Chloride 250 ML 265 MG IV ×2 (05:03→17:29)
[2022-11-15] MEDS: Omeprazole 20 MG CAPSULE.DR PO (05:04)
[2022-11-15 05:07] LABS: Anion Gap 15 (12-20); Blood Urea Nitrogen 11 mg/dL (9-16); Calcium 8.2 mg/dL (8.4-10.2); Carbon Dioxide 32 mmol/L (22-29); Chloride 96 mmol/L (96-108); Estimated Glomerular Filt Rate > 60; Glucose Fasting 168 mg/dL (60-99); Potassium 3.5 mmol/L (3.3-5.1); Sodium 139 mmol/L (135-145)
[2022-11-15 05:12] LABS: Troponin-I High Sensitivity 31.4 ng/L (<3.5-35.0)
[2022-11-15] MEDS: Albuterol Sulfate 90 MCG 8 GM INHALER 2 PUFF INHALE ×2 (05:55→11:58)
[2022-11-15 07:13] LABS: Glucose, Whole Blood 184 mg/dL (60-115)
--- NOTE | 2022-11-15 07:16 | PC.NURSE ---
patient reported 10/10 chest pain with heart rate sustaining in the 120s approximately at 03:50. MD notified, EKG, troponin ordered and obtained. nitroglycerin 0.4mg sublingual administered with minimal effect. morphine 1mg IVpush ordered and administered with some effect. will continue to monitor/
[2022-11-15 07:30] LABS: Hemoglobin 8.1 g/dl (14.0-18.0); Mean Corpuscular HGB Conc 28.9 g/dl (31.0-36.0); Mean Corpuscular Hemoglobin 22.1 pg (27.0-33.0); Mean Corpuscular Volume 76.5 fL (80.0-98.0); Mean Platelet Volume 10.3 fL (9.4-12.4); Platelet Count 286 X10*3/uL (160-400); Red Blood Count 3.66 X10*6/uL (4.60-5.80); Red Cell Distribution Width 19.6 % (11.0-16.0); White Blood Count 11.1 X10*3/uL (4.8-10.8)
[2022-11-15] MEDS: 0.9 % Sodium Chloride Flush 3 ML SYRINGE IVFLUSH ×3 (08:53→21:12)
[2022-11-15] MEDS: Phenytoin Sodium Extended 100 MG CAPSULE 200 MG PO (08:54)
[2022-11-15] MEDS: Furosemide 40 MG/4 ML VIAL IVPUSH ×2 (08:54→17:28)
[2022-11-15] MEDS: DULoxetine HCl 60 MG CAPSULE.DR PO ×2 (08:54→21:10)
[2022-11-15] MEDS: Torsemide 20 MG TABLET 40 MG PO (08:54)
[2022-11-15] MEDS: Apixaban 5 MG TABLET PO ×2 (08:55→21:11)
[2022-11-15] MEDS: dilTIAZem HCL CD 240 MG CAP.ER.DEG PO (08:55)
[2022-11-15] MEDS: metFORMIN HCl 1,000 MG TABLET 1000 MG PO (08:55)
[2022-11-15] MEDS: Acetaminophen 325 MG TABLET 650 MG PO ×2 (08:55→17:28)
[2022-11-15] MEDS: Metoprolol Tartrate 25 MG TABLET 75 MG PO ×2 (08:55→21:10)
[2022-11-15] MEDS: LORazepam 1 MG TABLET 2 MG PO ×2 (08:55→17:29)
[2022-11-15] MEDS: ARIPiprazole 10 MG TABLET PO (08:56)
[2022-11-15] MEDS: oxyCODONE HCl Immed Release 5 MG TABLET PO ×4 (08:56→21:31)
[2022-11-15] MEDS: Insulin Lispro 100 UNIT/ML 3 ML VIAL SUBCUT ×4 (08:56→21:11)
[2022-11-15] MEDS: Gabapentin 400 MG CAPSULE PO ×4 (08:56→21:11)
[2022-11-15] MEDS: Nystatin Powder 15 GM BOTTLE 1 APPL TOPICAL ×2 (08:57→21:12)
--- NOTE | 2022-11-15 09:03 | P.PNIM_ITS ---
Subjective Subjective Date of Service: 11/15/22 Interval History: chest pain Physical Exam Vital Signs: Vital Signs: Last Vital Signs Temp 99.5 F 11/15/22 07:26 Pulse 127 H 11/15/22 07:26 Resp 20 11/15/22 07:26 BP 124/70 11/15/22 07:26 Pulse Ox 91 L 11/15/22 07:26 O2 Del Method Nasal Cannula 11/15/22 07:26 O2 Flow Rate 2 11/15/22 07:26 BMI result Body Mass Index 45.1 GENERAL APPEARANCE: in no acute distress, pleasant. NECK: no carotid bruit, mild jugular venous distention. SKIN: no suspicious lesions, warm and dry. HEART: no murmurs, irregular rate and rhythm. LUNGS: clear to auscultation bilaterally. ABDOMEN: soft, nontender. EXTREMITIES: mild edema. PERIPHERAL PULSES: equal. NEUROLOGIC: No gross deficits, AAO X 3 Objective Data Active Medications Acetaminophen (Acetaminophen 325 Mg Tablet) 650 mg PO Q6H PRN PRN Reason: Headache/Pain Mild Scale (1-3) Last Admin: 11/15/22 08:55 Dose: 650 mg Documented By: CHANEL Al Hydroxide/Mg Hydroxide (Magnesium Hydrox/Alum Hydrox 30 Ml Oral.Susp) 30 ml PO Q6H PRN PRN Reason: Heartburn/Nausea Albuterol Sulfate (Albuterol Sulfate 90 Mcg 8 Gm Inhaler) 2 puff INHALE Q4H PRN PRN Reason: Shortness Of Breath Last Admin: 11/15/22 05:55 Dose: 2 puff Documented By: JITENDRA Apixaban (Apixaban 5 Mg Tablet) 5 mg PO BID [facility] Last Admin: 11/15/22 08:55 Dose: 5 mg Documented By: CHANEL Aripiprazole (Aripiprazole 10 Mg Tablet) 10 mg PO DAILY [facility] Last Admin: 11/15/22 08:56 Dose: 10 mg Documented By: CHANEL Atorvastatin Calcium (Atorvastatin Calcium 80 Mg Tablet) 80 mg PO BEDTIME [facility] Last Admin: 11/14/22 20:55 Dose: 80 mg Documented By: JERONIMO Diltiazem HCl (Diltiazem Hcl Cd 240 Mg Cap.Er.Deg) 240 mg PO DAILY [facility]; Protocol Last Admin: 11/15/22 08:55 Dose: 240 mg Documented By: CHANEL Doxycycline Monohydrate (Doxycycline Monohydrate 100 Mg Capsule) 100 mg PO Q12H [facility] Stop: 12/23/22 09:01 Duloxetine HCl (Duloxetine Hcl 60 Mg Capsule.) 60 mg PO BID [facility] Last Admin: 11/15/22 08:54 Dose: 60 mg Documented By: CHANEL Ferrous Sulfate (Ferrous Sulfate 324 Mg Tablet.) 324 mg PO MoWeFr@0900 [facility] Last Admin: 11/15/22 08:54 Dose: Not Given Documented By: CHANEL Non-Admin Reason: Patient Refused Furosemide (Furosemide 40 Mg/4 Ml Vial) 40 mg IVPUSH BID@0900,1800 [facility]; Protocol Last Admin: 11/15/22 08:54 Dose: 40 mg Documented By: CHANEL Gabapentin (Gabapentin 400 Mg Capsule) 400 mg PO QID [facility] Last Admin: 11/15/22 08:56 Dose: 400 mg Documented By: CHANEL Glucose (Glucose Gel 15 Gm Gel..Gram.) 15 gm PO Q15M PRN; Protocol PRN Reason: per Hypoglycemia Standing Ord. Hydroxyzine HCl (Hydroxyzine Hcl 25 Mg Tablet) 25 mg PO TID PRN PRN Reason: Anxiety Last Admin: 11/13/22 23:54 Dose: 25 mg Documented By: GIAN Dextrose (D10) 250 mls @ 750 mls/hr IV Q15M PRN; Protocol PRN Reason: per Hypoglycemia Standing Ord. Vancomycin HCl 750 mg/ Sodium (Chloride) 265 mls @ 265 mls/hr IV Q12H [facility] Last Infusion: 11/15/22 06:14 Dose: 0 mls/hr Documented By: JERONIMO Ibuprofen (Ibuprofen 600 Mg Tablet) 600 mg PO Q6H PRN PRN Reason: Pain, Moderate(Pain Scale 4-6) Insulin Human Lispro (Insulin Lispro 100 Unit/Ml 3 Ml Vial) 0 unit SUBCUT QI [facility]; Protocol Last Admin: 11/15/22 08:56 Dose: 2 unit Documented By: CHANEL Lidocaine (Lidocaine 4 % Patch Adh..Patch) 1 patch TRANSDERMA DAILY [facility] Last Admin: 11/15/22 08:53 Dose: Not Given Documented By: CHANEL Non-Admin Reason: Patient Refused Loperamide HCl (Loperamide Hcl 2 Mg Capsule) 2 mg PO Q4H PRN PRN Reason: Diarrhea Last Admin: 11/13/22 20:57 Dose: 2 mg Documented By: GIAN Lorazepam (Lorazepam 1 Mg Tablet) 2 mg PO TID PRN PRN Reason: Anxiety Last Admin: 11/15/22 08:55 Dose: 2 mg Documented By: LEROYEMA Magnesium Hydroxide (Milk Of Magnesia 30 Ml Oral.Susp) 30 ml PO DAILY PRN PRN Reason: Constipation Melatonin (Melatonin 3 Mg Tablet) 3 mg PO BEDTIME PRN PRN Reason: Insomnia Metformin HCl (Metformin Hcl 1,000 Mg Tablet) 1,000 mg PO DAILY [facility] Last Admin: 11/15/22 08:55 Dose: 1,000 mg Documented By: COTEMA Metoprolol Tartrate (Metoprolol Tartrate 25 Mg Tablet) 75 mg PO BID [facility]; Protocol Last Admin: 11/15/22 08:55 Dose: 75 mg Documented By: CHANEL Nitroglycerin (Nitroglycerin 0.4 Mg Tab.Subl) 0.4 mg SUBLINGUAL Q5M PRN PRN Reason: Chest Pain Last Admin: 11/15/22 04:13 Dose: 0.4 tab Documented By: JERONIMO Nystatin (Nystatin Powder 15 Gm Bottle) 1 appl TOPICAL BID [facility]; Protocol Last Admin: 11/15/22 08:57 Dose: 1 appl Documented By: CHANEL Omeprazole (Omeprazole 20 Mg Capsule.Dr) 20 mg PO DAILY@0630 [facility] Last Admin: 11/15/22 05:04 Dose: 20 mg Documented By: JERONIMO Ondansetron HCl (Ondansetron Odt 4 Mg Tab.Rapdis) 4 mg TRANSLINGU Q8H PRN PRN Reason: Nausea Oxycodone HCl (Oxycodone Hcl Immed Release 5 Mg Tablet) 5 mg PO Q4H PRN PRN Reason: Pain, Moderate(Pain Scale 4-6) Last Admin: 11/15/22 08:56 Dose: 5 mg Documented By: CHANEL Pharmacy Consult (Consult Rx Vancomycin Dosing) 1 each MISCELLANE DAILY PRN PRN Reason: Consult order Phenytoin Sodium (Phenytoin Sodium Extended 100 Mg Capsule) 200 mg PO DAILY [facility] Last Admin: 11/15/22 08:54 Dose: 200 mg Documented By: CHANEL Phenytoin Sodium (Phenytoin Sodium Extended 100 Mg Capsule) 400 mg PO BEDTIME [facility] Last Admin: 11/14/22 20:55 Dose: 400 mg Documented By: JERONIMO Quetiapine Fumarate (Quetiapine Fumarate 200 Mg Tablet) 200 mg PO BEDTIME [facility] Last Admin: 11/14/22 20:54 Dose: 200 mg Documented By: JERONIMO Quetiapine Fumarate (Quetiapine Fumarate 100 Mg Tablet) 100 mg PO BEDTIME PRN PRN Reason: Insomnia Last Admin: 11/13/22 23:54 Dose: 100 mg Documented By: GIAN Senna (Sennosides 8.6 Mg Tablet) 8.6 mg PO DAILY [facility] Last Admin: 11/15/22 08:56 Dose: Not Given Documented By: CHANEL Non-Admin Reason: Patient Refused Simethicone (Simethicone 80 Mg Tab.Chew) 80 mg PO TID PRN PRN Reason: Indigestion Last Admin: 11/13/22 23:54 Dose: 80 mg Documented By: GIAN Sodium Chloride (0.9 % Sodium Chloride Flush 3 Ml Syringe) 3 ml IVFLUSH QSHIFT [facility] Last Admin: 11/15/22 08:53 Dose: 3 ml Documented By: CHANEL Torsemide (Torsemide 20 Mg Tablet) 40 mg PO DAILY [facility]; Protocol Last Admin: 11/15/22 08:54 Dose: 40 mg Documented By: CHANEL Trazodone HCl (Trazodone Hcl 50 Mg Tablet) 50 mg PO BEDTIME PRN PRN Reason: Insomnia Labs 11/15/22 07:11 11/15/22 04:29 Labs: Laboratory Results - last 24 hr 11/14/22 11/14/22 11/14/22 07:32 11:41 15:00 MCV MCH MCHC RDW Plt Count MPV Absolute Nucleated RBC Nucleated RBC % (auto) Anion Gap Estim Creat Clear Calc Estimated GFR POC Glucose 207 H Fasting Glucose Calcium Troponin I High Sens Vancomycin Trough 14.7 Blood Type A Positive Antibody Screen NEGATIVE Crossmatch See Detail 11/14/22 11/14/22 11/15/22 16:42 20:42 04:29 MCV MCH MCHC RDW Plt Count MPV Absolute Nucleated RBC Nucleated RBC % (auto) Anion Gap 15 Estim Creat Clear Calc 129.0 Estimated GFR > 60 POC Glucose 133 H 149 H Fasting Glucose 168 H Calcium 8.2 L Troponin I High Sens Vancomycin Trough Blood Type Antibody Screen Crossmatch 11/15/22 11/15/22 11/15/22 04:29 04:29 07:08 MCV Cancelled MCH Cancelled MCHC Cancelled RDW Cancelled Plt Count Cancelled MPV Cancelled Absolute Nucleated RBC Cancelled Nucleated RBC % (auto) Cancelled Anion Gap Estim Creat Clear Calc Estimated GFR POC Glucose 184 H Fasting Glucose Calcium Troponin I High Sens 31.4 Vancomycin Trough Blood Type Antibody Screen Crossmatch 11/15/22 07:11 MCV 76.5 L MCH 22.1 L MCHC 28.9 L RDW 19.6 H Plt Count 286 MPV 10.3 Absolute Nucleated RBC 0.000 Nucleated RBC % (auto) 0.0 Anion Gap Estim Creat Clear Calc Estimated GFR POC Glucose Fasting Glucose Calcium Troponin I High Sens Vancomycin Trough Blood Type Antibody Screen Crossmatch Assessment and Plan (1) Osteomyelitis of foot: Status: Acute Plan 62M PMH paroxysmal afib, severe depression, morbid obesity, DM, chronic diastolic chf, gerd, moderate persistent asthma, epilepsy, HTN, history of CVA, presented with chest pain. Chest pain on Eliquis and statin, and beta-deysi, troponin negative Cardio appreciated, unlikely cardiace Shortness of breath due to acute on chronic diastolic CHF continue IV Lasix acute on chronic anemia iron defeciecny, inflammatory transfused 1 unit prbc, hgb improved appripriately, monitor Morbid obesity Weight loss recommended Paroxysmal atrial fibrillation with rapid ventricular response Continue metoprolol, Eliquis, diltiazem increased to 240mg daily Diabetes Insulin, monitor point of care GERD PPI Moderate persistent asthma No acute exacerbation, bronchodilators as needed Mood disorder with suicidal ideation Continue Cymbalta, Abilify ?osteomyelitis of right distal 1st phalanx unclear chronicity Continue IV vancomycin until November 21, 2022, then start p.o. doxy DVT prophylaxis on Eliquis Full code reason for continued hospitalization:iv diuresis Time Spent With Patient Time: Total time managing care of this patient today ____ minutes. Quality Stroke Does the patient have a stroke diagnosis?: No VTE Prior VTE?: No VTE Risk Level:: Medical - moderate - high VTE Device Contraindication: Treatment Not Indicated VTE Drug Contraindication: N/A - Med Ordered
[2022-11-15 11:04] LABS: Glucose, Whole Blood 160 mg/dL (60-115)
--- NOTE | 2022-11-15 12:15 | PM.PNCARD ---
Subjective Subjective Date of Service: 11/15/22 Principal diagnosis: Atrial fibrillation, CHF Interval history: I saw Sage in cardiology follow-up today. Continues to have atrial fibrillation rapid ventricular response. He said he short of breath but clinically does appear to be very short of breath. No leg edema. No chest pain. He is noted to be significantly anemic. Currently still on blood thinner Review of Systems Constitutional: Reports fatigue and Reports weakness Cardiovascular: Denies chest pain, Denies lightheadedness, Denies Loss of Consciousness, Denies palpitations and Reports dyspnea Respiratory: Reports no additional respiratory complaints and Reports dyspnea Musculoskeletal: Reports no additional musculoskeletal complaints Reports weakness Psychiatric: Reports no additional psychiatric complaints Endocrine: Reports fatigue and Denies palpitations Physical Exam Vital Signs: Last Vital Signs Temp 98.2 F 11/15/22 11:16 Pulse 96 11/15/22 11:16 Resp 20 11/15/22 11:16 BP 122/71 11/15/22 11:16 Pulse Ox 93 11/15/22 11:16 O2 Del Method Nasal Cannula 11/15/22 11:16 O2 Flow Rate 2 11/15/22 11:16 BMI result Body Mass Index 45.1 GENERAL APPEARANCE: in no acute distress, pleasant. NECK: no carotid bruit, mild jugular venous distention. SKIN: no suspicious lesions, warm and dry. HEART: no murmurs, irregular rate and rhythm. LUNGS: clear to auscultation bilaterally. ABDOMEN: soft, nontender. EXTREMITIES: mild edema. PERIPHERAL PULSES: equal. NEUROLOGIC: No gross deficits, AAO X 3 Objective Labs and Meds 11/15/22 07:11 11/15/22 04:29 Lab results: Laboratory Results - last 24 hr 11/14/22 11/14/22 11/14/22 15:00 16:42 20:42 WBC RBC Hgb Hct MCV MCH MCHC RDW Plt Count MPV Absolute Nucleated RBC Nucleated RBC % (auto) Sodium Potassium Chloride Carbon Dioxide Anion Gap BUN Creatinine Estim Creat Clear Calc Estimated GFR POC Glucose 133 H 149 H Fasting Glucose Calcium Troponin I High Sens Vancomycin Trough 14.7 11/15/22 11/15/22 11/15/22 04:29 04:29 04:29 WBC Cancelled RBC Cancelled Hgb Cancelled Hct Cancelled MCV Cancelled MCH Cancelled MCHC Cancelled RDW Cancelled Plt Count Cancelled MPV Cancelled Absolute Nucleated RBC Cancelled Nucleated RBC % (auto) Cancelled Sodium 139 Potassium 3.5 Chloride 96 Carbon Dioxide 32 H Anion Gap 15 BUN 11 Creatinine 0.95 Estim Creat Clear Calc 129.0 Estimated GFR > 60 POC Glucose Fasting Glucose 168 H Calcium 8.2 L Troponin I High Sens 31.4 Vancomycin Trough 11/15/22 11/15/22 11/15/22 07:08 07:11 11:00 WBC 11.1 H RBC 3.66 L Hgb 8.1 L Hct 28.0 L MCV 76.5 L MCH 22.1 L MCHC 28.9 L RDW 19.6 H Plt Count 286 MPV 10.3 Absolute Nucleated RBC 0.000 Nucleated RBC % (auto) 0.0 Sodium Potassium Chloride Carbon Dioxide Anion Gap BUN Creatinine Estim Creat Clear Calc Estimated GFR POC Glucose 184 H 160 H Fasting Glucose Calcium Troponin I High Sens Vancomycin Trough Progress Note: A&P Assessment and plan (1) Atrial fibrillation with rapid ventricular response: Status: Acute Assessment and Plan: Atrial fibrillation with difficult control rate. Would increase metoprolol to 100 mg b.i.d. and continue Cardizem. Rate remains difficult control may need to pursue addition of digoxin. Most likely reason for uncontrolled rate is multifactorial including infection, anemia. Consider transfusing to maintain hematocrit over 30. Clinically does appear to be in overt heart failure although if he becomes significantly more short of breath may need to obtain chest x-ray as well as BNP and further diurese if need be. Has prior history of diastolic heart failure. Blood pressure is well optimized at this point time. Will continue to follow with you Time Spent With Patient Time: Total time managing care of this patient today ____ minutes. Progress Note: Quality Stroke Does the patient have a stroke diagnosis?: No Procedures Date of Service Date of Service: 11/15/22
--- NOTE | 2022-11-15 14:09 | HO.WOUND ---
Wound Care Consult Reason for consult: Weeping leg ulcerations (chronic) Reconsulted on this patient for a wound on the right anterior leg. Alginate ag, ABD pad and elastic retention netting was removed at the time of consult. This patient [place] [facility] from the last time of consult. Patient was in bed with legs elevated. The swelling in the legs had come down since the last time seeing him. After cleaning the wound, it was all pink tissue with some dried adherent scabbing on the edges. Hyperpigmented, scaly periwound. There is still some edema in the surrounding tissue. Small serous drainage noted on the dressing. Patient had palpable pulses. Wound measuring smaller at 1cm x 0.6cm x 0.1cm. Wound cleansed with sea clens wound cleanser, alginate ag cut to wound size, covered with ABD pad and secured with juju wrap. Also applied uli wrap to leg to help with the edema. Recommendation: At the last time of consult because of the limited availability of compression choices, edema could not be addressed but since the patient is now able, would recommend wearing an uli wrap from the tops of the toes to just below the knee with a 50% retention and overlap. Continue to keep legs elevated when possible. Wound is looking better. Would continue to cleanse the wound with normal saline or sea clense wound cleanser. Cut alginate ag to wound size. Cover with DCD and juju wrap every other day. If there are any changes or questions, please feel free to consult again. Patient may follow up in the wound care clinic after discharge if still in need of wound care services.
--- NOTE | 2022-11-15 14:21 | MHC.CLN ---
RE: CONSULT WEEPING AREA TO RLE-DM ULCERS INTAKE USUALLY EXCELLENT DIET RX:DIABETIC 2200 KCAL APPROPRIATE MONITOR SKIN INTEGRITY
--- NOTE | 2022-11-15 14:23 | MHC.CM.PN ---
EMR REVIEWED, PT REMAINS ON IV LASIX, PER HOSPITALIST PT NOT READY FOR D/C, ANTIC PT WILL RETURN HOME W/[facility] ONCE MEDICALLY CLEARED.
[2022-11-15 16:03] LABS: Glucose, Whole Blood 161 mg/dL (60-115)
[2022-11-15 17:07] LABS: Vancomycin Random 14.8 mcg/mL (15-20)
[2022-11-15 19:45] LABS: Glucose, Whole Blood 176 mg/dL (60-115)
[2022-11-15] MEDS: Phenytoin Sodium Extended 100 MG CAPSULE 400 MG PO (21:10)
[2022-11-15] MEDS: QUEtiapine Fumarate 200 MG TABLET PO (21:11)
[2022-11-15] MEDS: Atorvastatin Calcium 80 MG TABLET PO (21:11)
[2022-11-16 03:26] VITALS: BP 127/71; PULSE 100; RESP 26; TEMP 36.7; O2SAT 95
[2022-11-16] MEDS: Acetaminophen 325 MG TABLET 650 MG PO (03:39)
[2022-11-16] MEDS: oxyCODONE HCl Immed Release 5 MG TABLET PO ×3 (03:39→14:32)
[2022-11-16] MEDS: vancomycin HCL 750 MG in 0.9 % Sodium Chloride 250 ML 265 MG IV (05:05)
[2022-11-16 06:18] LABS: Hematocrit 27.5 % (42.0-52.0); Hemoglobin 7.8 g/dl (14.0-18.0); Mean Corpuscular HGB Conc 28.4 g/dl (31.0-36.0); Mean Corpuscular Hemoglobin 21.8 pg (27.0-33.0); Mean Platelet Volume 10.1 fL (9.4-12.4); Platelet Count 276 X10*3/uL (160-400); Red Blood Count 3.57 X10*6/uL (4.60-5.80); White Blood Count 7.6 X10*3/uL (4.8-10.8)
[2022-11-16] MEDS: Omeprazole 20 MG CAPSULE.DR PO (06:26)
[2022-11-16 06:38] LABS: Anion Gap 13 (12-20); Blood Urea Nitrogen 11 mg/dL (9-16); Carbon Dioxide 32 mmol/L (22-29); Chloride 97 mmol/L (96-108); Creatinine Clr Calc Pharmacy 145.9; Estimated Glomerular Filt Rate > 60; Glucose Fasting 133 mg/dL (60-99); Potassium 3.1 mmol/L (3.3-5.1); Sodium 139 mmol/L (135-145)
[2022-11-16 06:59] VITALS: BP 118/57; PULSE 100; RESP 22; TEMP 36.6; O2SAT 92
[2022-11-16 07:17] LABS: Glucose, Whole Blood 135 mg/dL (60-115)
[2022-11-16] MEDS: Furosemide 40 MG/4 ML VIAL IVPUSH (08:30)
[2022-11-16] MEDS: Potassium Chloride ER 20 MEQ TAB.ER.PRT 40 MEQ PO (08:31)
[2022-11-16] MEDS: DULoxetine HCl 60 MG CAPSULE.DR PO ×2 (08:31→20:53)
[2022-11-16] MEDS: Sennosides 8.6 MG TABLET PO (08:32)
[2022-11-16] MEDS: Phenytoin Sodium Extended 100 MG CAPSULE 200 MG PO (08:32)
[2022-11-16] MEDS: Metoprolol Tartrate 100 MG TABLET PO ×2 (08:32→20:53)
[2022-11-16] MEDS: dilTIAZem HCL CD 240 MG CAP.ER.DEG PO (08:32)
[2022-11-16] MEDS: metFORMIN HCl 1,000 MG TABLET 1000 MG PO (08:32)
[2022-11-16] MEDS: Torsemide 20 MG TABLET 40 MG PO (08:32)
[2022-11-16] MEDS: Apixaban 5 MG TABLET PO ×2 (08:32→20:53)
[2022-11-16] MEDS: ARIPiprazole 10 MG TABLET PO (08:32)
[2022-11-16] MEDS: Gabapentin 400 MG CAPSULE PO ×4 (08:32→20:53)
[2022-11-16] MEDS: 0.9 % Sodium Chloride Flush 3 ML SYRINGE IVFLUSH ×3 (08:33→20:55)
--- NOTE | 2022-11-16 09:43 | HO.PM.IMPN ---
Subjective Subjective Date of Service: 11/16/22 Interval History: sob Physical Exam Vital Signs: Vital Signs: Last Vital Signs Temp 97.8 F 11/16/22 06:59 Pulse 100 11/16/22 06:59 Resp 22 H 11/16/22 06:59 BP 118/57 L 11/16/22 06:59 Pulse Ox 92 11/16/22 06:59 O2 Del Method Nasal Cannula 11/16/22 06:59 O2 Flow Rate 3 11/16/22 06:59 BMI result Body Mass Index 45.1 GENERAL APPEARANCE: in no acute distress, pleasant. NECK: no carotid bruit, mild jugular venous distention. SKIN: no suspicious lesions, warm and dry. HEART: no murmurs, irregular rate and rhythm. LUNGS: clear to auscultation bilaterally. ABDOMEN: soft, nontender. EXTREMITIES: mild edema. PERIPHERAL PULSES: equal. NEUROLOGIC: No gross deficits, AAO X 3 Objective Data Active Medications Acetaminophen (Acetaminophen 325 Mg Tablet) 650 mg PO Q6H PRN PRN Reason: Headache/Pain Mild Scale (1-3) Last Admin: 11/16/22 03:39 Dose: 650 mg Documented By: GINI Al Hydroxide/Mg Hydroxide (Magnesium Hydrox/Alum Hydrox 30 Ml Oral.Susp) 30 ml PO Q6H PRN PRN Reason: Heartburn/Nausea Albuterol Sulfate (Albuterol Sulfate 90 Mcg 8 Gm Inhaler) 2 puff INHALE Q4H PRN PRN Reason: Shortness Of Breath Last Admin: 11/15/22 11:58 Dose: 2 puff Documented By: CHANEL Apixaban (Apixaban 5 Mg Tablet) 5 mg PO BID [facility] Last Admin: 11/16/22 08:32 Dose: 5 mg Documented By: NICOLLE Aripiprazole (Aripiprazole 10 Mg Tablet) 10 mg PO DAILY [facility] Last Admin: 11/16/22 08:32 Dose: 10 mg Documented By: NICOLLE Atorvastatin Calcium (Atorvastatin Calcium 80 Mg Tablet) 80 mg PO BEDTIME [facility] Last Admin: 11/15/22 21:11 Dose: 80 mg Documented By: TYSHAWN Digoxin (Digoxin 0.5 Mg/2 Ml Ampul) 0.25 mg IVPUSH Q6H [facility] Stop: 11/16/22 15:16 Diltiazem HCl (Diltiazem Hcl Cd 240 Mg Cap.Er.Deg) 240 mg PO DAILY [facility]; Protocol Last Admin: 11/16/22 08:32 Dose: 240 mg Documented By: NICOLLE Doxycycline Monohydrate (Doxycycline Monohydrate 100 Mg Capsule) 100 mg PO Q12H [facility] Stop: 12/23/22 09:01 Duloxetine HCl (Duloxetine Hcl 60 Mg Capsule.) 60 mg PO BID [facility] Last Admin: 11/16/22 08:31 Dose: 60 mg Documented By: NICOLLE Ferrous Sulfate (Ferrous Sulfate 324 Mg Tablet.) 324 mg PO MoWeFr@0900 [facility] Last Admin: 11/15/22 08:54 Dose: Not Given Documented By: COTEMA Non-Admin Reason: Patient Refused Gabapentin (Gabapentin 400 Mg Capsule) 400 mg PO QID [facility] Last Admin: 11/16/22 08:32 Dose: 400 mg Documented By: NICOLLE Glucose (Glucose Gel 15 Gm Gel..Gram.) 15 gm PO Q15M PRN; Protocol PRN Reason: per Hypoglycemia Standing Ord. Hydroxyzine HCl (Hydroxyzine Hcl 25 Mg Tablet) 25 mg PO TID PRN PRN Reason: Anxiety Last Admin: 11/13/22 23:54 Dose: 25 mg Documented By: GIAN Dextrose (D10) 250 mls @ 750 mls/hr IV Q15M PRN; Protocol PRN Reason: per Hypoglycemia Standing Ord. Vancomycin HCl 750 mg/ Sodium (Chloride) 265 mls @ 265 mls/hr IV Q12H [facility] Last Infusion: 11/16/22 06:27 Dose: 0 mls/hr Documented By: GINI Ibuprofen (Ibuprofen 600 Mg Tablet) 600 mg PO Q6H PRN PRN Reason: Pain, Moderate(Pain Scale 4-6) Insulin Human Lispro (Insulin Lispro 100 Unit/Ml 3 Ml Vial) 0 unit SUBCUT QIDACHS [facility]; Protocol Last Admin: 11/16/22 07:32 Dose: Not Given Documented By: NICOLLE Non-Admin Reason: NPO Lidocaine (Lidocaine 4 % Patch Adh..Patch) 1 patch TRANSDERMA DAILY [facility] Last Admin: 11/16/22 08:33 Dose: Not Given Documented By: NICOLLE Non-Admin Reason: Patient Refused Loperamide HCl (Loperamide Hcl 2 Mg Capsule) 2 mg PO Q4H PRN PRN Reason: Diarrhea Last Admin: 11/13/22 20:57 Dose: 2 mg Documented By: GIAN Lorazepam (Lorazepam 1 Mg Tablet) 2 mg PO TID PRN PRN Reason: Anxiety Last Admin: 11/15/22 17:29 Dose: 2 mg Documented By: COTEMA Magnesium Hydroxide (Milk Of Magnesia 30 Ml Oral.Susp) 30 ml PO DAILY PRN PRN Reason: Constipation Melatonin (Melatonin 3 Mg Tablet) 3 mg PO BEDTIME PRN PRN Reason: Insomnia Metformin HCl (Metformin Hcl 1,000 Mg Tablet) 1,000 mg PO DAILY [facility] Last Admin: 11/16/22 08:32 Dose: 1,000 mg Documented By: NICOLLE Metoprolol Tartrate (Metoprolol Tartrate 100 Mg Tablet) 100 mg PO BID [facility]; Protocol Last Admin: 11/16/22 08:32 Dose: 100 mg Documented By: NICOLLE Nitroglycerin (Nitroglycerin 0.4 Mg Tab.Subl) 0.4 mg SUBLINGUAL Q5M PRN PRN Reason: Chest Pain Last Admin: 11/15/22 18:29 Dose: 1 tab Documented By: CHANEL Nystatin (Nystatin Powder 15 Gm Bottle) 1 appl TOPICAL BID [facility]; Protocol Last Admin: 11/16/22 08:45 Dose: Not Given Documented By: NICOLLE Non-Admin Reason: Patient Refused Omeprazole (Omeprazole 20 Mg Capsule.Dr) 20 mg PO DAILY@0630 [facility] Last Admin: 11/16/22 06:26 Dose: 20 mg Documented By: GINI Ondansetron HCl (Ondansetron Odt 4 Mg Tab.Rapdis) 4 mg TRANSLINGU Q8H PRN PRN Reason: Nausea Oxycodone HCl (Oxycodone Hcl Immed Release 5 Mg Tablet) 5 mg PO Q4H PRN PRN Reason: Pain, Moderate(Pain Scale 4-6) Last Admin: 11/16/22 03:39 Dose: 5 mg Documented By: GINI Pharmacy Consult (Consult Rx Vancomycin Dosing) 1 each MISCELLANE DAILY PRN PRN Reason: Consult order Phenytoin Sodium (Phenytoin Sodium Extended 100 Mg Capsule) 200 mg PO DAILY [facility] Last Admin: 11/16/22 08:32 Dose: 200 mg Documented By: NICOLLE Phenytoin Sodium (Phenytoin Sodium Extended 100 Mg Capsule) 400 mg PO BEDTIME [facility] Last Admin: 11/15/22 21:10 Dose: 400 mg Documented By: TYSHAWN Quetiapine Fumarate (Quetiapine Fumarate 200 Mg Tablet) 200 mg PO BEDTIME [facility] Last Admin: 11/15/22 21:11 Dose: 200 mg Documented By: TYSHAWN Quetiapine Fumarate (Quetiapine Fumarate 100 Mg Tablet) 100 mg PO BEDTIME PRN PRN Reason: Insomnia Last Admin: 11/13/22 23:54 Dose: 100 mg Documented By: GIAN Senna (Sennosides 8.6 Mg Tablet) 8.6 mg PO DAILY [facility] Last Admin: 11/16/22 08:32 Dose: 8.6 mg Documented By: NICOLLE Simethicone (Simethicone 80 Mg Tab.Chew) 80 mg PO TID PRN PRN Reason: Indigestion Last Admin: 11/13/22 23:54 Dose: 80 mg Documented By: GIAN Sodium Chloride (0.9 % Sodium Chloride Flush 3 Ml Syringe) 3 ml IVFLUSH QSHIFT [facility] Last Admin: 11/16/22 08:33 Dose: 3 ml Documented By: NICOLLE Torsemide (Torsemide 20 Mg Tablet) 40 mg PO DAILY [facility]; Protocol Last Admin: 11/16/22 08:32 Dose: 40 mg Documented By: NICOLLE Trazodone HCl (Trazodone Hcl 50 Mg Tablet) 50 mg PO BEDTIME PRN PRN Reason: Insomnia Labs 11/16/22 05:57 11/16/22 06:13 Labs: Laboratory Results - last 24 hr 11/15/22 11/15/22 11/15/22 11:00 15:59 16:30 MCV MCH MCHC RDW Plt Count MPV Absolute Nucleated RBC Nucleated RBC % (auto) Anion Gap Estim Creat Clear Calc Estimated GFR POC Glucose 160 H 161 H Fasting Glucose Calcium Random Vancomycin 14.8 L 11/15/22 11/16/22 11/16/22 19:40 05:57 06:13 MCV 77.0 L MCH 21.8 L MCHC 28.4 L RDW 20.0 H Plt Count 276 MPV 10.1 Absolute Nucleated RBC 0.000 Nucleated RBC % (auto) 0.0 Anion Gap 13 Estim Creat Clear Calc 145.9 Estimated GFR > 60 POC Glucose 176 H Fasting Glucose 133 H Calcium 8.0 L Random Vancomycin 11/16/22 06:56 MCV MCH MCHC RDW Plt Count MPV Absolute Nucleated RBC Nucleated RBC % (auto) Anion Gap Estim Creat Clear Calc Estimated GFR POC Glucose 135 H Fasting Glucose Calcium Random Vancomycin Assessment and Plan (1) Osteomyelitis of foot: Status: Acute Plan 62M PMH paroxysmal afib, severe depression, morbid obesity, DM, chronic diastolic chf, gerd, moderate persistent asthma, epilepsy, HTN, history of CVA, presented with chest pain. Chest pain on Eliquis and statin, and beta-deysi, troponin negative Cardio appreciated, unlikely cardiace Shortness of breath due to acute on chronic diastolic CHF s/p iv diruesis, will change to po lasix 40mg bid acute on chronic anemia iron defeciecny, inflammatory transfused 1 unit prbc, hgb improved appripriately, monitor Morbid obesity Weight loss recommended Paroxysmal atrial fibrillation with rapid ventricular response Continue metoprolol - increased to 100mg bid, Eliquis, diltiazem increased to 240mg daily will give iv dig monitor on tele Diabetes Insulin, monitor point of care GERD PPI Moderate persistent asthma No acute exacerbation, bronchodilators as needed Mood disorder with suicidal ideation Continue Davi Hurtado ?osteomyelitis of right distal 1st phalanx unclear chronicity Continue IV vancomycin until November 21, 2022, then start p.o. doxy DVT prophylaxis on Eliquis Full code reason for continued hospitalization: managing rapid heart rate in afib with rvr Time Spent With Patient Time: Total time managing care of this patient today ____ minutes. Quality Stroke Does the patient have a stroke diagnosis?: No VTE Prior VTE?: No VTE Risk Level:: Medical - moderate - high VTE Device Contraindication: Treatment Not Indicated VTE Drug Contraindication: N/A - Med Ordered
[2022-11-16] MEDS: Digoxin 0.5 MG/2 ML AMPUL 0.25 MG IVPUSH ×2 (09:50→16:44)
--- NOTE | 2022-11-16 10:34 | PM.PNCARD ---
Subjective Subjective Date of Service: 11/16/22 Principal diagnosis: Atrial fibrillation, CHF Interval history: Patient complains of shortness of breath. Although does not have leg edema. Currently receiving IV Lasix. Negative balance of 3 L so far. Remains anemic. Also currently being treated with antibiotics for infection. Also remains anxious. Rate with atrial fibrillation still elevated with heart rate about 100 beats per minute. Review of Systems Constitutional: Reports no additional constitutional complaints Cardiovascular: Denies chest pain, Denies leg edema, Denies lightheadedness, Denies Loss of Consciousness, Denies palpitations and Reports dyspnea Respiratory: Reports dyspnea Reports system reviewed and no additional complaints, except as documented Endocrine: Denies palpitations Physical Exam Vital Signs: Last Vital Signs Temp 97.8 F 11/16/22 06:59 Pulse 100 11/16/22 06:59 Resp 22 H 11/16/22 06:59 BP 118/57 L 11/16/22 06:59 Pulse Ox 92 11/16/22 06:59 O2 Del Method Nasal Cannula 11/16/22 06:59 O2 Flow Rate 3 11/16/22 06:59 BMI result Body Mass Index 45.1 GENERAL APPEARANCE: in no acute distress, pleasant. NECK: no carotid bruit, mild jugular venous distention. SKIN: no suspicious lesions, warm and dry. HEART: no murmurs, irregular rate and rhythm. LUNGS: clear to auscultation bilaterally. ABDOMEN: soft, nontender. EXTREMITIES: mild edema. PERIPHERAL PULSES: equal. NEUROLOGIC: No gross deficits, AAO X 3 Objective Labs and Meds 11/16/22 05:57 11/16/22 06:13 Lab results: Laboratory Results - last 24 hr 11/15/22 11/15/22 11/15/22 11:00 15:59 16:30 WBC RBC Hgb Hct MCV MCH MCHC RDW Plt Count MPV Absolute Nucleated RBC Nucleated RBC % (auto) Sodium Potassium Chloride Carbon Dioxide Anion Gap BUN Creatinine Estim Creat Clear Calc Estimated GFR POC Glucose 160 H 161 H Fasting Glucose Calcium Random Vancomycin 14.8 L 11/15/22 11/16/22 11/16/22 19:40 05:57 06:13 WBC 7.6 RBC 3.57 L Hgb 7.8 L Hct 27.5 L MCV 77.0 L MCH 21.8 L MCHC 28.4 L RDW 20.0 H Plt Count 276 MPV 10.1 Absolute Nucleated RBC 0.000 Nucleated RBC % (auto) 0.0 Sodium 139 Potassium 3.1 L Chloride 97 Carbon Dioxide 32 H Anion Gap 13 BUN 11 Creatinine 0.84 Estim Creat Clear Calc 145.9 Estimated GFR > 60 POC Glucose 176 H Fasting Glucose 133 H Calcium 8.0 L Random Vancomycin 11/16/22 06:56 WBC RBC Hgb Hct MCV MCH MCHC RDW Plt Count MPV Absolute Nucleated RBC Nucleated RBC % (auto) Sodium Potassium Chloride Carbon Dioxide Anion Gap BUN Creatinine Estim Creat Clear Calc Estimated GFR POC Glucose 135 H Fasting Glucose Calcium Random Vancomycin Progress Note: A&P Assessment and plan (1) Atrial fibrillation with rapid ventricular response: Status: Acute Assessment and Plan: Atrial fibrillation rapid ventricular response to persistently rapid related to anemia, anxiety as well as pain and infection. Continue to treat medically and provide supportive care. Treat his anxiety. I would add digoxin 0.25 by mg IV push q.6 hours x3 doses and started 1.25 mg daily. Continue metoprolol and Cardizem therapy. Does not appear to be overtly in heart failure. Consider transfusion to maintain hematocrit over 30. Continue treat infection source aggressively. Also continue to treat pain aggressively. Out of bed to chair if possible and incentive spirometry. Clinically does not appear to be in heart failure however this is difficult to determine given his body habitus but I would consider switching him to p.o. Lasix. Strict intake and output chart needs to be pursued. Will follow with you. Time Spent With Patient Time: Total time managing care of this patient today ____ minutes. Progress Note: Quality Stroke Does the patient have a stroke diagnosis?: No Procedures Date of Service Date of Service: 11/16/22
--- NOTE | 2022-11-16 10:47 | P.CDIM_ITS ---
PROVIDER RESPONSE TEXT: To clarify, the appropriate diagnosis supported by the clinical indicators: Other (explain): hypokalemia QUERY TEXT: PHYSICIAN'S DOCUMENTATION REQUEST Date of Query: 11/16/2022 10:35 AM EDT Patient Name: Sage Bartholomew Admit Date: 11/12/2022 Dear Kun Diamond, A review of the medical record indicates additional documentation may be needed. Please review below and update the documentation accordingly. Clinical Indicators: The following diagnoses or signs and symptoms were noted in the patient record: Potassium level on 11/16/22: 3.1 Treated with Klor-Con 40 meq po once Based on the above, could you clarify the appropriate diagnosis, if significant, that supports the ab ove abnormalities and additional evaluation, monitoring, and/or treatment rendered: Labs indicate a diagnosis of (please specify) Other (explain)Clinically unable to determine (explain)Thank you, Cailin Stoll RN Use of terms such as suspected, likely, concern for, or probable (associated with a specific diagnosi s that is being evaluated, monitored, or treated as if it exists) are acceptable and can be coded in the inpatient se tting, when documented at the time of discharge. Please use your independent medical judgment in providing your response. THIS QUERY IS PART OF THE PERMANENT MEDICAL RECORD
[2022-11-16 11:13] VITALS: BP 118/66; PULSE 95; RESP 20; TEMP 36.8; O2SAT 93
[2022-11-16 11:22] LABS: Glucose, Whole Blood 157 mg/dL (60-115)
[2022-11-16] MEDS: Insulin Lispro 100 UNIT/ML 3 ML VIAL SUBCUT ×3 (11:40→20:53)
[2022-11-16] MEDS: LORazepam 1 MG TABLET 2 MG PO (13:06)
[2022-11-16 14:35] VITALS: BP 173/83; PULSE 107; RESP 18; TEMP 37.1; O2SAT 92
[2022-11-16 15:15] LABS: Glucose, Whole Blood 173 mg/dL (60-115)
[2022-11-16 15:45] LABS: Vancomycin Random 14.8 mcg/mL (15-20)
--- NOTE | 2022-11-16 16:04 | HE.PHANOTE ---
Re: vanco SCr stable at 0.84 but trough trending low at 14.8 today (yesterday 14.8 and day before 14.7). Increasing dose to 1000 mg q12 hours and recheck trough 11/17/22 @1500 after he gets 2 more doses. Based on his history we may need to reduce to 750 q12 again but we need to see the trough come up a little higher to ensure effective treatment.
[2022-11-16] MEDS: vancomycin HCL 1,000 MG in 0.9 % Sodium Chloride 250 ML 270 MG IV (16:45)
[2022-11-16 19:19] VITALS: BP 136/76; PULSE 109; RESP 20; TEMP 37.7; O2SAT 94
[2022-11-16 20:26] LABS: Glucose, Whole Blood 171 mg/dL (60-115)
[2022-11-16] MEDS: Atorvastatin Calcium 80 MG TABLET PO (20:53)
[2022-11-16] MEDS: Phenytoin Sodium Extended 100 MG CAPSULE 400 MG PO (20:53)
[2022-11-16] MEDS: QUEtiapine Fumarate 200 MG TABLET PO (20:53)
[2022-11-16] MEDS: Nystatin Powder 15 GM BOTTLE 1 APPL TOPICAL (20:54)
[2022-11-17] VITALS (7 sets, daily range): BP systolic 98–140; BP diastolic 60–77; PULSE 78–117; RESP 20–26; TEMP 36.3–37.3; O2SAT 92–94
[2022-11-17] MEDS: vancomycin HCL 1,000 MG in 0.9 % Sodium Chloride 250 ML 270 MG IV ×2 (04:11→16:56)
[2022-11-17] MEDS: Omeprazole 20 MG CAPSULE.DR PO (05:34)
[2022-11-17 06:44] LABS: Hematocrit 27.5 % (42.0-52.0); Hemoglobin 7.7 g/dl (14.0-18.0); Mean Corpuscular Hemoglobin 21.8 pg (27.0-33.0); Mean Corpuscular Volume 77.7 fL (80.0-98.0); Mean Platelet Volume 10.7 fL (9.4-12.4); Platelet Count 295 X10*3/uL (160-400); Red Blood Count 3.54 X10*6/uL (4.60-5.80); Red Cell Distribution Width 20.2 % (11.0-16.0); White Blood Count 7.9 X10*3/uL (4.8-10.8)
[2022-11-17 07:05] LABS: Alanine Aminotransferase 10 U/L (0-40); Albumin Level 2.8 g/dL (3.5-5.0); Alkaline Phosphatase 85 U/L (39-117); Anion Gap 10 (12-20); Aspartate Amino Transferase 14 U/L (5-37); Bilirubin Direct 0.3 mg/dL (0.0-0.5); Bilirubin Total 0.5 mg/dL (0.0-1.0); Blood Urea Nitrogen 9 mg/dL (9-16); Calcium 8.2 mg/dL (8.4-10.2); Carbon Dioxide 34 mmol/L (22-29); Chloride 96 mmol/L (96-108); Creatinine Clr Calc Pharmacy 151.3; Estimated Glomerular Filt Rate > 60; Glucose Fasting 146 mg/dL (60-99); Magnesium 1.8 mg/dL (1.6-2.6); Potassium 3.4 mmol/L (3.3-5.1); Sodium 137 mmol/L (135-145)
[2022-11-17 07:46] LABS: Glucose, Whole Blood 163 mg/dL (60-115)
[2022-11-17] MEDS: Torsemide 20 MG TABLET 40 MG PO (08:43)
[2022-11-17] MEDS: dilTIAZem HCL CD 240 MG CAP.ER.DEG PO (08:43)
[2022-11-17] MEDS: DULoxetine HCl 60 MG CAPSULE.DR PO ×2 (08:43→20:20)
[2022-11-17] MEDS: Phenytoin Sodium Extended 100 MG CAPSULE 200 MG PO (08:43)
[2022-11-17] MEDS: Metoprolol Tartrate 100 MG TABLET PO ×2 (08:44→20:20)
[2022-11-17] MEDS: Gabapentin 400 MG CAPSULE PO ×4 (08:44→20:20)
[2022-11-17] MEDS: ARIPiprazole 10 MG TABLET PO (08:44)
[2022-11-17] MEDS: Apixaban 5 MG TABLET PO ×2 (08:44→20:20)
[2022-11-17] MEDS: Furosemide 40 MG TABLET PO ×2 (08:44→16:54)
[2022-11-17] MEDS: metFORMIN HCl 1,000 MG TABLET 1000 MG PO (08:44)
[2022-11-17] MEDS: Insulin Lispro 100 UNIT/ML 3 ML VIAL SUBCUT ×3 (08:47→20:21)
[2022-11-17] MEDS: 0.9 % Sodium Chloride Flush 3 ML SYRINGE IVFLUSH ×3 (08:49→20:22)
[2022-11-17] MEDS: oxyCODONE HCl Immed Release 5 MG TABLET PO ×2 (09:03→17:18)
[2022-11-17] MEDS: LORazepam 1 MG TABLET 2 MG PO ×2 (09:03→17:18)
--- NOTE | 2022-11-17 09:03 | P.PNIM_ITS ---
Subjective Subjective Date of Service: 11/17/22 Interval History: no sob, no new issues Physical Exam Vital Signs: Vital Signs: Last Vital Signs Temp 98.1 F 11/17/22 07:34 Pulse 98 11/17/22 07:34 Resp 20 11/17/22 07:34 BP 108/75 11/17/22 07:34 Pulse Ox 92 11/17/22 07:34 O2 Del Method Nasal Cannula 11/17/22 07:34 O2 Flow Rate 3 11/17/22 07:34 BMI result Body Mass Index 45.1 Const: Other: GENERAL APPEARANCE: in no acute distress, pleasant. NECK: no carotid bruit, mild jugular venous distention. SKIN: no suspicious lesions, warm and dry. HEART: no murmurs, irregular rate and rhythm. LUNGS: clear to auscultation bilaterally. ABDOMEN: soft, nontender. EXTREMITIES: mild edema. PERIPHERAL PULSES: equal. NEUROLOGIC: No gross deficits, AAO X 3 Objective Data Active Medications Acetaminophen (Acetaminophen 325 Mg Tablet) 650 mg PO Q6H PRN PRN Reason: Headache/Pain Mild Scale (1-3) Last Admin: 11/16/22 03:39 Dose: 650 mg Documented By: GINI Al Hydroxide/Mg Hydroxide (Magnesium Hydrox/Alum Hydrox 30 Ml Oral.Susp) 30 ml PO Q6H PRN PRN Reason: Heartburn/Nausea Albuterol Sulfate (Albuterol Sulfate 90 Mcg 8 Gm Inhaler) 2 puff INHALE Q4H PRN PRN Reason: Shortness Of Breath Last Admin: 11/15/22 11:58 Dose: 2 puff Documented By: CHANEL Apixaban (Apixaban 5 Mg Tablet) 5 mg PO BID [facility] Last Admin: 11/17/22 08:44 Dose: 5 mg Documented By: BRUCE Aripiprazole (Aripiprazole 10 Mg Tablet) 10 mg PO DAILY [facility] Last Admin: 11/17/22 08:44 Dose: 10 mg Documented By: BRUCE Atorvastatin Calcium (Atorvastatin Calcium 80 Mg Tablet) 80 mg PO BEDTIME [facility] Last Admin: 11/16/22 20:53 Dose: 80 mg Documented By: TYSHAWN Diltiazem HCl (Diltiazem Hcl Cd 240 Mg Cap.Er.Deg) 240 mg PO DAILY [facility]; Protocol Last Admin: 11/17/22 08:43 Dose: 240 mg Documented By: BRUCE Doxycycline Monohydrate (Doxycycline Monohydrate 100 Mg Capsule) 100 mg PO Q12H [facility] Stop: 12/23/22 09:01 Duloxetine HCl (Duloxetine Hcl 60 Mg Capsule.) 60 mg PO BID [facility] Last Admin: 11/17/22 08:43 Dose: 60 mg Documented By: BRUCE Ferrous Sulfate (Ferrous Sulfate 324 Mg Tablet.) 324 mg PO MoWeFr@0900 [facility] Last Admin: 11/17/22 08:45 Dose: Not Given Documented By: BRUCE Non-Admin Reason: Patient Refused Furosemide (Furosemide 40 Mg Tablet) 40 mg PO BID@0900,1800 [facility]; Protocol Last Admin: 11/17/22 08:44 Dose: 40 mg Documented By: BRUCE Gabapentin (Gabapentin 400 Mg Capsule) 400 mg PO QID [facility] Last Admin: 11/17/22 08:44 Dose: 400 mg Documented By: BRUCE Glucose (Glucose Gel 15 Gm Gel..Gram.) 15 gm PO Q15M PRN; Protocol PRN Reason: per Hypoglycemia Standing Ord. Hydroxyzine HCl (Hydroxyzine Hcl 25 Mg Tablet) 25 mg PO TID PRN PRN Reason: Anxiety Last Admin: 11/13/22 23:54 Dose: 25 mg Documented By: GIAN Dextrose (D10) 250 mls @ 750 mls/hr IV Q15M PRN; Protocol PRN Reason: per Hypoglycemia Standing Ord. Vancomycin HCl 1,000 mg/ (Sodium Chloride) 270 mls @ 270 mls/hr IV Q12H [facility] Last Infusion: 11/17/22 05:34 Dose: 0 mls/hr Documented By: ISAI Ibuprofen (Ibuprofen 600 Mg Tablet) 600 mg PO Q6H PRN PRN Reason: Pain, Moderate(Pain Scale 4-6) Insulin Human Lispro (Insulin Lispro 100 Unit/Ml 3 Ml Vial) 0 unit SUBCUT QIDACHS [facility]; Protocol Last Admin: 11/17/22 08:47 Dose: 2 unit Documented By: BRUCE Lidocaine (Lidocaine 4 % Patch Adh..Patch) 1 patch TRANSDERMA DAILY [facility] Last Admin: 11/17/22 08:45 Dose: Not Given Documented By: BRUCE Non-Admin Reason: Patient Refused Loperamide HCl (Loperamide Hcl 2 Mg Capsule) 2 mg PO Q4H PRN PRN Reason: Diarrhea Last Admin: 11/13/22 20:57 Dose: 2 mg Documented By: GIAN Lorazepam (Lorazepam 1 Mg Tablet) 2 mg PO TID PRN PRN Reason: Anxiety Last Admin: 11/16/22 13:06 Dose: 2 mg Documented By: NICOLLE Magnesium Hydroxide (Milk Of Magnesia 30 Ml Oral.Susp) 30 ml PO DAILY PRN PRN Reason: Constipation Melatonin (Melatonin 3 Mg Tablet) 3 mg PO BEDTIME PRN PRN Reason: Insomnia Metformin HCl (Metformin Hcl 1,000 Mg Tablet) 1,000 mg PO DAILY [facility] Last Admin: 11/17/22 08:44 Dose: 1,000 mg Documented By: BRUCE Metoprolol Tartrate (Metoprolol Tartrate 100 Mg Tablet) 100 mg PO BID [facility]; Protocol Last Admin: 11/17/22 08:44 Dose: 100 mg Documented By: BRUCE Nitroglycerin (Nitroglycerin 0.4 Mg Tab.Subl) 0.4 mg SUBLINGUAL Q5M PRN PRN Reason: Chest Pain Last Admin: 11/15/22 18:29 Dose: 1 tab Documented By: COTEMA Nystatin (Nystatin Powder 15 Gm Bottle) 1 appl TOPICAL BID [facility]; Protocol Last Admin: 11/16/22 20:54 Dose: 1 appl Documented By: TYSHAWN Omeprazole (Omeprazole 20 Mg Capsule.Dr) 20 mg PO DAILY@0630 [facility] Last Admin: 11/17/22 05:34 Dose: 20 mg Documented By: ISAI Ondansetron HCl (Ondansetron Odt 4 Mg Tab.Rapdis) 4 mg TRANSLINGU Q8H PRN PRN Reason: Nausea Oxycodone HCl (Oxycodone Hcl Immed Release 5 Mg Tablet) 5 mg PO Q4H PRN PRN Reason: Pain, Moderate(Pain Scale 4-6) Last Admin: 11/16/22 14:32 Dose: 5 mg Documented By: NICOLLE Pharmacy Consult (Consult Rx Vancomycin Dosing) 1 each MISCELLANE DAILY PRN PRN Reason: Consult order Phenytoin Sodium (Phenytoin Sodium Extended 100 Mg Capsule) 200 mg PO DAILY [facility] Last Admin: 11/17/22 08:43 Dose: 200 mg Documented By: BRUCE Phenytoin Sodium (Phenytoin Sodium Extended 100 Mg Capsule) 400 mg PO BEDTIME [facility] Last Admin: 11/16/22 20:53 Dose: 400 mg Documented By: TYSHAWN Quetiapine Fumarate (Quetiapine Fumarate 200 Mg Tablet) 200 mg PO BEDTIME [facility] Last Admin: 11/16/22 20:53 Dose: 200 mg Documented By: TYSHAWN Quetiapine Fumarate (Quetiapine Fumarate 100 Mg Tablet) 100 mg PO BEDTIME PRN PRN Reason: Insomnia Last Admin: 11/13/22 23:54 Dose: 100 mg Documented By: GIAN Senna (Sennosides 8.6 Mg Tablet) 8.6 mg PO DAILY [facility] Last Admin: 11/17/22 08:46 Dose: Not Given Documented By: BRUCE Non-Admin Reason: Patient Refused Simethicone (Simethicone 80 Mg Tab.Chew) 80 mg PO TID PRN PRN Reason: Indigestion Last Admin: 11/13/22 23:54 Dose: 80 mg Documented By: GIAN Sodium Chloride (0.9 % Sodium Chloride Flush 3 Ml Syringe) 3 ml IVFLUSH QSHIFT [facility] Last Admin: 11/17/22 08:49 Dose: 3 ml Documented By: BRUCE Torsemide (Torsemide 20 Mg Tablet) 40 mg PO DAILY [facility]; Protocol Last Admin: 11/17/22 08:43 Dose: 40 mg Documented By: BRUCE Trazodone HCl (Trazodone Hcl 50 Mg Tablet) 50 mg PO BEDTIME PRN PRN Reason: Insomnia Labs 11/17/22 05:49 11/17/22 05:49 Labs: Laboratory Results - last 24 hr 11/16/22 11/16/22 11/16/22 11:15 15:07 15:21 MCV MCH MCHC RDW Plt Count MPV Absolute Nucleated RBC Nucleated RBC % (auto) Anion Gap Estim Creat Clear Calc Estimated GFR POC Glucose 157 H 173 H Fasting Glucose Calcium Magnesium Total Bilirubin Direct Bilirubin AST ALT Alkaline Phosphatase Total Protein Albumin Random Vancomycin 14.8 L 11/16/22 11/17/22 11/17/22 20:21 05:49 05:49 MCV 77.7 L MCH 21.8 L MCHC 28.0 L RDW 20.2 H Plt Count 295 MPV 10.7 Absolute Nucleated RBC 0.000 Nucleated RBC % (auto) 0.0 Anion Gap 10 L Estim Creat Clear Calc 151.3 Estimated GFR > 60 POC Glucose 171 H Fasting Glucose 146 H Calcium 8.2 L Magnesium 1.8 Total Bilirubin 0.5 Direct Bilirubin 0.3 AST 14 ALT 10 Alkaline Phosphatase 85 Total Protein 6.0 L Albumin 2.8 L Random Vancomycin 11/17/22 07:38 MCV MCH MCHC RDW Plt Count MPV Absolute Nucleated RBC Nucleated RBC % (auto) Anion Gap Estim Creat Clear Calc Estimated GFR POC Glucose 163 H Fasting Glucose Calcium Magnesium Total Bilirubin Direct Bilirubin AST ALT Alkaline Phosphatase Total Protein Albumin Random Vancomycin Assessment and Plan (1) Osteomyelitis of foot: Status: Acute Plan 62M PMH paroxysmal afib, severe depression, morbid obesity, DM, chronic diastolic chf, gerd, moderate persistent asthma, epilepsy, HTN, history of CVA, presented with chest pain. Chest pain on Eliquis and statin, and beta-deysi, troponin negative Cardio appreciated, unlikely cardiac and get it all the time, PRN nitro Shortness of breath due to acute on chronic diastolic CHF and probable deconditioning s/p iv diruesis, changed to po lasix 40mg bid 11/16 acute on chronic anemia iron defeciecny, inflammatory transfused 1 unit prbc, hgb improved appripriately, monitor Morbid obesity Weight loss recommended Paroxysmal atrial fibrillation with rapid ventricular response Continue metoprolol - increased to 100mg bid, Eliquis, diltiazem increased to 240mg daily loaded with iv dig 11/16, starting po dig 0.125 daily monitor on tele Diabetes Insulin, monitor point of care GERD PPI Moderate persistent asthma No acute exacerbation, bronchodilators as needed Mood disorder with suicidal ideation Continue Cymbalta, Abilify ?osteomyelitis of right distal 1st phalanx unclear chronicity Continue IV vancomycin until November 21, 2022, then start p.o. doxy DVT prophylaxis on Eliquis Full code reason for continued hospitalization: managing rapid heart rate in afib with rvr, utlitmeatly ? disdcharge back to Psych? Time Spent With Patient Time: Total time managing care of this patient today ____ minutes. Quality Stroke Does the patient have a stroke diagnosis?: No VTE Prior VTE?: No VTE Risk Level:: Medical - moderate - high VTE Device Contraindication: Treatment Not Indicated VTE Drug Contraindication: N/A - Med Ordered
--- NOTE | 2022-11-17 10:17 | MHC.CM.PN ---
Per ROUNDS discussion, Patient is medically cleared and needs to be evaluated by the Care Team for ? of need for IPLOC. CM will follow.
[2022-11-17] MEDS: Digoxin 0.125 MG TABLET PO (10:18)
--- NOTE | 2022-11-17 11:00 | P.CDIM_ITS ---
PROVIDER RESPONSE TEXT: To clarify, the appropriate diagnosis supported by the clinical indicators: Clinically unable to determine (explain): not able to determined at this time QUERY TEXT: PHYSICIAN'S DOCUMENTATION REQUEST Date of Query: 11/17/2022 10:37 AM EDT Patient Name: Sage Bartholomew Admit Date: 11/12/2022 Dear Iraj Elizalde, A review of the medical record indicates additional documentation may be needed. Please review below and update the documentation accordingly. Clinical Indicators: PMH : DM2 Per Wound Note 11/15/22: Weeping leg ulcerations (chronic) wound on the right anterior leg, measuring smaller at 1cm x 0.6cm x 0.1cm. Wound cleansed with sea cl ens wound cleanser, alginate ag cut to wound size, covered with ABD pad and secured with juju wrap. Also applied uli wra p to leg to help with the edema. Based on the above, could you clarify the appropriate type and severity that supports the above abnor malities and additional evaluation, monitoring, and/or treatment rendered: PVD DM with leg ulceration Other (explain)Clinically unable to determine (explain)Thank you, Cailin Stoll RN Use of terms such as suspected, likely, concern for, or probable (associated with a specific diagnosi s that is being evaluated, monitored, or treated as if it exists) are acceptable and can be coded in the inpatient se tting, when documented at the time of discharge. Please use your independent medical judgment in providing your response. THIS QUERY IS PART OF THE PERMANENT MEDICAL RECORD
[2022-11-17 11:55] LABS: Glucose, Whole Blood 170 mg/dL (60-115)
--- NOTE | 2022-11-17 13:09 | PM.PNCARD ---
Subjective Subjective Date of Service: 11/17/22 Principal diagnosis: Atrial fibrillation, CHF Interval history: Atrial fibrillation, rate is better controlled with digoxin. Patient denies any shortness of breath. Switch to oral diuretics. Continues to have significant anemia. Review of Systems Review of Systems Yes all other systems are reviewed and are negative Physical Exam Vital Signs: Last Vital Signs Temp 97.3 F 11/17/22 11:40 Pulse 78 11/17/22 11:40 Resp 20 11/17/22 11:40 BP 104/64 11/17/22 11:40 Pulse Ox 92 11/17/22 11:40 O2 Del Method Nasal Cannula 11/17/22 11:40 O2 Flow Rate 3 11/17/22 11:40 BMI result Body Mass Index 45.1 GENERAL APPEARANCE: in no acute distress, pleasant. NECK: no carotid bruit, mild jugular venous distention. SKIN: no suspicious lesions, warm and dry. HEART: no murmurs, irregular rate and rhythm. LUNGS: clear to auscultation bilaterally. ABDOMEN: soft, nontender. EXTREMITIES: mild edema. PERIPHERAL PULSES: equal. NEUROLOGIC: No gross deficits, AAO X 3 Objective Labs and Meds 11/17/22 05:49 11/17/22 05:49 Lab results: Laboratory Results - last 24 hr 11/16/22 11/16/22 11/16/22 15:07 15:21 20:21 WBC RBC Hgb Hct MCV MCH MCHC RDW Plt Count MPV Absolute Nucleated RBC Nucleated RBC % (auto) Sodium Potassium Chloride Carbon Dioxide Anion Gap BUN Creatinine Estim Creat Clear Calc Estimated GFR POC Glucose 173 H 171 H Fasting Glucose Calcium Magnesium Total Bilirubin Direct Bilirubin AST ALT Alkaline Phosphatase Total Protein Albumin Random Vancomycin 14.8 L 11/17/22 11/17/22 11/17/22 05:49 05:49 07:38 WBC 7.9 RBC 3.54 L Hgb 7.7 L Hct 27.5 L MCV 77.7 L MCH 21.8 L MCHC 28.0 L RDW 20.2 H Plt Count 295 MPV 10.7 Absolute Nucleated RBC 0.000 Nucleated RBC % (auto) 0.0 Sodium 137 Potassium 3.4 Chloride 96 Carbon Dioxide 34 H Anion Gap 10 L BUN 9 Creatinine 0.81 Estim Creat Clear Calc 151.3 Estimated GFR > 60 POC Glucose 163 H Fasting Glucose 146 H Calcium 8.2 L Magnesium 1.8 Total Bilirubin 0.5 Direct Bilirubin 0.3 AST 14 ALT 10 Alkaline Phosphatase 85 Total Protein 6.0 L Albumin 2.8 L Random Vancomycin 11/17/22 11:43 WBC RBC Hgb Hct MCV MCH MCHC RDW Plt Count MPV Absolute Nucleated RBC Nucleated RBC % (auto) Sodium Potassium Chloride Carbon Dioxide Anion Gap BUN Creatinine Estim Creat Clear Calc Estimated GFR POC Glucose 170 H Fasting Glucose Calcium Magnesium Total Bilirubin Direct Bilirubin AST ALT Alkaline Phosphatase Total Protein Albumin Random Vancomycin Progress Note: A&P Assessment and plan (1) Atrial fibrillation with rapid ventricular response: Status: Acute Assessment and Plan: Atrial fibrillation better rate control with triple therapy. Continue the same. Switch to p.o. digoxin 0.25 mg daily in addition to metoprolol and Cardizem therapy. Overall continues to be significantly anemic and will consider transfusing him to hematocrit over 30. Continue treat his infection as well as pain syndrome and anxiety. Continue full oral anticoagulation Eliquis 5 mg b.i.d. and monitor for signs of bleeding. Currently does appear to be in overt signs of heart failure. Continue p.o. Lasix. Out of bed to chair and incentive spirometry. Will sign of the case at this point time. Thank you for allowing us to partake in his care Time Spent With Patient Time: Total time managing care of this patient today ____ minutes. Progress Note: Quality Stroke Does the patient have a stroke diagnosis?: No Procedures Date of Service Date of Service: 11/17/22
[2022-11-17 16:02] LABS: Glucose, Whole Blood 140 mg/dL (60-115)
[2022-11-17 19:32] LABS: Glucose, Whole Blood 165 mg/dL (60-115)
[2022-11-17] MEDS: Atorvastatin Calcium 80 MG TABLET PO (20:20)
[2022-11-17] MEDS: Phenytoin Sodium Extended 100 MG CAPSULE 400 MG PO (20:21)
[2022-11-17] MEDS: QUEtiapine Fumarate 200 MG TABLET PO (20:21)
[2022-11-17] MEDS: guaiFENesin DM 100/10/5 ML 5 ML SYRUP PO (20:49)
[2022-11-18] VITALS (11 sets, daily range): BP systolic 82–148; BP diastolic 51–86; PULSE 92–113; RESP 16–24; TEMP 36.4–37.1; O2SAT 84–99
[2022-11-18] MEDS: guaiFENesin DM 100/10/5 ML 5 ML SYRUP PO (02:10)
[2022-11-18] MEDS: Omeprazole 20 MG CAPSULE.DR PO (05:07)
[2022-11-18] MEDS: vancomycin HCL 1,000 MG in 0.9 % Sodium Chloride 250 ML 270 MG IV ×2 (05:07→17:48)
[2022-11-18] MEDS: Lactated Ringers 1,000 ML 999 ML IV (05:49)
--- NOTE | 2022-11-18 06:05 | PC.NURSE ---
Patient had a manual blood pressure reading of 82/66 at 05:30, MD notified. LR 1L bolus ordered and STAT lactic acid ordered. vancomycin paused at 05:39 due to patient having one access.
--- NOTE | 2022-11-18 06:23 | PM.EVENT ---
Event Note Date of Service: 11/18/22 Event Note: patient had a low BP reading, asymptomatic. Will give 1 L of fluid, will check lactic acid Time Spent With Patient Time: Total time managing care of this patient today ____ minutes.
[2022-11-18 07:22] LABS: Glucose, Whole Blood 154 mg/dL (60-115)
[2022-11-18 07:35] LABS: Creatinine Clr Calc Pharmacy 155.1; Estimated Glomerular Filt Rate > 60
--- NOTE | 2022-11-18 10:32 | P.PNIM_ITS ---
Subjective Subjective Date of Service: 11/18/22 Interval History: Seen and evaluated Feels comfortable Denies any fever, pain or lightheadedness BP low overnight , asymptomatic no other overnight events Review of Systems Review of Systems: Yes all other systems are reviewed and are negative Physical Exam Vital Signs: Vital Signs: Last Vital Signs Temp 98.2 F 11/18/22 07:43 Pulse 93 11/18/22 07:43 Resp 19 11/18/22 07:43 BP 90/55 L 11/18/22 07:43 Pulse Ox 95 11/18/22 07:43 O2 Del Method Nasal Cannula 11/18/22 07:43 O2 Flow Rate 3 11/18/22 07:43 BMI result Body Mass Index 45.1 Const: Other: Constitutional : Awake, interactive, not in distress Neck : Normal inspection, Supple Cardiovascular : RRR, no JVP, no lower extremity edema Respiratory : fair bilateral air entry, no crackles, wheezes or rhonchi, on 3L O2 Gastrointestinal: soft, lax, Normal bowel sounds, Non tender Skin : Warm, Dry Neurological : Alert & oriented x3, No focal deficit Objective Data Active Medications Acetaminophen (Acetaminophen 325 Mg Tablet) 650 mg PO Q6H PRN PRN Reason: Headache/Pain Mild Scale (1-3) Last Admin: 11/16/22 03:39 Dose: 650 mg Documented By: GINI Al Hydroxide/Mg Hydroxide (Magnesium Hydrox/Alum Hydrox 30 Ml Oral.Susp) 30 ml PO Q6H PRN PRN Reason: Heartburn/Nausea Albuterol Sulfate (Albuterol Sulfate 90 Mcg 8 Gm Inhaler) 2 puff INHALE Q4H PRN PRN Reason: Shortness Of Breath Last Admin: 11/15/22 11:58 Dose: 2 puff Documented By: CHANEL Apixaban (Apixaban 5 Mg Tablet) 5 mg PO BID [facility] Last Admin: 11/17/22 20:20 Dose: 5 mg Documented By: JERONIMO Aripiprazole (Aripiprazole 10 Mg Tablet) 10 mg PO DAILY [facility] Last Admin: 11/17/22 08:44 Dose: 10 mg Documented By: BRUCE Atorvastatin Calcium (Atorvastatin Calcium 80 Mg Tablet) 80 mg PO BEDTIME [facility] Last Admin: 11/17/22 20:20 Dose: 80 mg Documented By: JERONIMO Bisacodyl (Bisacodyl 5 Mg Tablet.) 10 mg PO DAILY PRN PRN Reason: Constipation Digoxin (Digoxin 0.125 Mg Tablet) 0.125 mg PO DAILY [facility] Last Admin: 11/17/22 10:18 Dose: 0.125 mg Documented By: BRUCE Diltiazem HCl (Diltiazem Hcl Cd 240 Mg Cap.Er.Deg) 240 mg PO DAILY [facility]; Protocol Last Admin: 11/17/22 08:43 Dose: 240 mg Documented By: BRUCE Doxycycline Monohydrate (Doxycycline Monohydrate 100 Mg Capsule) 100 mg PO Q12H [facility] Stop: 12/23/22 09:01 Duloxetine HCl (Duloxetine Hcl 60 Mg Capsule.) 60 mg PO BID [facility] Last Admin: 11/17/22 20:20 Dose: 60 mg Documented By: JERONIMO Ferrous Sulfate (Ferrous Sulfate 324 Mg Tablet.) 324 mg PO MoWeFr@0900 [facility] Last Admin: 11/17/22 08:45 Dose: Not Given Documented By: BRUCE Non-Admin Reason: Patient Refused Gabapentin (Gabapentin 400 Mg Capsule) 400 mg PO QID [facility] Last Admin: 11/17/22 20:20 Dose: 400 mg Documented By: JERONIMO Glucose (Glucose Gel 15 Gm Gel..Gram.) 15 gm PO Q15M PRN; Protocol PRN Reason: per Hypoglycemia Standing Ord. Guaifenesin/Dextromethorphan (Guaifenesin Dm 100/10/5 Ml 5 Ml Syrup) 5 ml PO Q4H PRN PRN Reason: cough Last Admin: 11/18/22 02:10 Dose: 5 ml Documented By: JERONIMO Hydroxyzine HCl (Hydroxyzine Hcl 25 Mg Tablet) 25 mg PO TID PRN PRN Reason: Anxiety Last Admin: 11/13/22 23:54 Dose: 25 mg Documented By: GIAN Dextrose (D10) 250 mls @ 750 mls/hr IV Q15M PRN; Protocol PRN Reason: per Hypoglycemia Standing Ord. Vancomycin HCl 1,000 mg/ (Sodium Chloride) 270 mls @ 270 mls/hr IV Q12H [facility] Last Infusion: 11/18/22 07:47 Dose: 0 mls/hr Documented By: NEHA Sodium Chloride (Ns) 1,000 mls @ 999 mls/hr IV .Q1H1M [facility] Stop: 11/18/22 11:15 Ibuprofen (Ibuprofen 600 Mg Tablet) 600 mg PO Q6H PRN PRN Reason: Pain, Moderate(Pain Scale 4-6) Insulin Human Lispro (Insulin Lispro 100 Unit/Ml 3 Ml Vial) 0 unit SUBCUT QIDACHS [facility]; Protocol Last Admin: 11/18/22 08:37 Dose: Not Given Documented By: NEHA Non-Admin Reason: pt. refusing to eat Lidocaine (Lidocaine 4 % Patch Adh..Patch) 1 patch TRANSDERMA DAILY [facility] Last Admin: 11/17/22 08:45 Dose: Not Given Documented By: BRUCE Non-Admin Reason: Patient Refused Loperamide HCl (Loperamide Hcl 2 Mg Capsule) 2 mg PO Q4H PRN PRN Reason: Diarrhea Last Admin: 11/13/22 20:57 Dose: 2 mg Documented By: GIAN Magnesium Hydroxide (Milk Of Magnesia 30 Ml Oral.Susp) 30 ml PO DAILY PRN PRN Reason: Constipation Melatonin (Melatonin 3 Mg Tablet) 3 mg PO BEDTIME PRN PRN Reason: Insomnia Metformin HCl (Metformin Hcl 1,000 Mg Tablet) 1,000 mg PO DAILY [facility] Last Admin: 11/17/22 08:44 Dose: 1,000 mg Documented By: BRUCE Metoprolol Tartrate (Metoprolol Tartrate 100 Mg Tablet) 100 mg PO BID [facility]; Pro tocol Last Admin: 11/17/22 20:20 Dose: 100 mg Documented By: JERONIMO Nitroglycerin (Nitroglycerin 0.4 Mg Tab.Subl) 0.4 mg SUBLINGUAL Q5M PRN PRN Reason: Chest Pain Last Admin: 11/15/22 18:29 Dose: 1 tab Documented By: COTEMA Nystatin (Nystatin Powder 15 Gm Bottle) 1 appl TOPICAL BID [facility]; Protocol Last Admin: 11/17/22 20:55 Dose: Not Given Documented By: JERONIMO Non-Admin Reason: Patient Refused Omeprazole (Omeprazole 20 Mg Capsule.Dr) 20 mg PO DAILY@0630 [facility] Last Admin: 11/18/22 05:07 Dose: 20 mg Documented By: JERONIMO Ondansetron HCl (Ondansetron Odt 4 Mg Tab.Rapdis) 4 mg TRANSLINGU Q8H PRN PRN Reason: Nausea Oxycodone HCl (Oxycodone Hcl Immed Release 5 Mg Tablet) 5 mg PO Q4H PRN PRN Reason: Pain, Moderate(Pain Scale 4-6) Last Admin: 11/17/22 17:18 Dose: 5 mg Documented By: BRUCE Pharmacy Consult (Consult Rx Vancomycin Dosing) 1 each MISCELLANE DAILY PRN PRN Reason: Consult order Phenytoin Sodium (Phenytoin Sodium Extended 100 Mg Capsule) 200 mg PO DAILY [facility] Last Admin: 11/17/22 08:43 Dose: 200 mg Documented By: BRUCE Phenytoin Sodium (Phenytoin Sodium Extended 100 Mg Capsule) 400 mg PO BEDTIME [facility] Last Admin: 11/17/22 20:21 Dose: 400 mg Documented By: JERONIMO Quetiapine Fumarate (Quetiapine Fumarate 200 Mg Tablet) 200 mg PO BEDTIME [facility] Last Admin: 11/17/22 20:21 Dose: 200 mg Documented By: JERONIMO Quetiapine Fumarate (Quetiapine Fumarate 100 Mg Tablet) 100 mg PO BEDTIME PRN PRN Reason: Insomnia Last Admin: 11/13/22 23:54 Dose: 100 mg Documented By: GIAN Senna (Sennosides 8.6 Mg Tablet) 8.6 mg PO DAILY [facility] Last Admin: 11/17/22 08:46 Dose: Not Given Documented By: BRUCE Non-Admin Reason: Patient Refused Simethicone (Simethicone 80 Mg Tab.Chew) 80 mg PO TID PRN PRN Reason: Indigestion Last Admin: 11/13/22 23:54 Dose: 80 mg Documented By: GIAN Sodium Chloride (0.9 % Sodium Chloride Flush 3 Ml Syringe) 3 ml IVFLUSH QSHIFT [facility] Last Admin: 11/17/22 20:22 Dose: 3 ml Documented By: JERONIMO Torsemide (Torsemide 20 Mg Tablet) 40 mg PO DAILY [facility]; Protocol Last Admin: 11/17/22 08:43 Dose: 40 mg Documented By: BRUCE Trazodone HCl (Trazodone Hcl 50 Mg Tablet) 50 mg PO BEDTIME PRN PRN Reason: Insomnia Labs 06/14/23 05:49 11/18/22 07:20 Labs: Laboratory Results - last 24 hr 11/17/22 11/17/22 11/17/22 11:43 14:59 15:59 Estim Creat Clear Calc Estimated GFR POC Glucose 170 H 140 H Lactic Acid Random Vancomycin 17.0 11/17/22 11/18/22 11/18/22 19:13 06:13 07:11 Estim Creat Clear Calc Estimated GFR POC Glucose 165 H 154 H Lactic Acid 1.0 Random Vancomycin 11/18/22 07:20 Estim Creat Clear Calc 155.1 Estimated GFR > 60 POC Glucose Lactic Acid Random Vancomycin Assessment and Plan (1) Osteomyelitis of foot: Status: Acute (2) Atrial fibrillation with rapid ventricular response: Status: Acute (3) Hypotension: Status: Acute Plan 62M PMH paroxysmal afib, severe depression, morbid obesity, DM, chronic diastolic chf, gerd, moderate persistent asthma, epilepsy, HTN, history of CVA, presented with chest pain. Hypotension due to dehydration, BP meds no due to severe sepsis Normal lactate IVF bolus To give a unit of blood Hold BP meds DC Lasix, hold Torsemide Chest pain Cardio appreciated, unlikely cardiac and get it all the time, PRN nitro on Eliquis and statin and beta-deysi troponin negative Shortness of breath due to acute on chronic diastolic CHF and probable deconditioning resolved was on both lasix and torsemide PO Keep on Torsemide only for now acute on chronic anemia iron defeciecny, inflammatory transfused 1 unit prbc, to give a 2nd unit follow H&H Morbid obesity Weight loss recommended Paroxysmal atrial fibrillation with rapid ventricular response metoprolol 100mg bid, Eliquis diltiazem increased to 240mg daily po dig 0.125 daily monitor on tele Diabetes Insulin, monitor point of care GERD PPI Moderate persistent asthma No acute exacerbation, bronchodilators as needed Mood disorder with suicidal ideation Continue Cymbalta, Abilify ?osteomyelitis of right distal 1st phalanx unclear chronicity Continue IV vancomycin until November 21, 2022, then start p.o. doxy DVT prophylaxis on Eliquis Full code reason for continued hospitalization: Hypotension, needs blood transfusion and discharge planning to psych. Time Spent With Patient Time: Total time managing care of this patient today ____ minutes. Quality Stroke Does the patient have a stroke diagnosis?: No VTE Prior VTE?: No VTE Risk Level:: Medical - moderate - high VTE Device Contraindication: Treatment Not Indicated VTE Drug Contraindication: N/A - Med Ordered
[2022-11-18] MEDS: 0.9 % Sodium Chloride Flush 3 ML SYRINGE IVFLUSH ×2 (10:41→21:08)
[2022-11-18] MEDS: 0.9 % Sodium Chloride 1,000 ML 999 ML IV (10:43)
[2022-11-18] MEDS: Phenytoin Sodium Extended 100 MG CAPSULE 200 MG PO (10:43)
[2022-11-18] MEDS: Sennosides 8.6 MG TABLET PO (10:43)
[2022-11-18] MEDS: Metoprolol Tartrate 100 MG TABLET PO ×2 (10:43→21:08)
[2022-11-18] MEDS: metFORMIN HCl 1,000 MG TABLET 1000 MG PO (10:43)
[2022-11-18] MEDS: Gabapentin 400 MG CAPSULE PO ×4 (10:43→21:08)
[2022-11-18] MEDS: ARIPiprazole 10 MG TABLET PO (10:44)
[2022-11-18] MEDS: Apixaban 5 MG TABLET PO ×2 (10:44→21:08)
[2022-11-18] MEDS: DULoxetine HCl 60 MG CAPSULE.DR PO ×2 (10:44→21:08)
[2022-11-18] MEDS: Nystatin Powder 15 GM BOTTLE 1 APPL TOPICAL (10:45)
[2022-11-18] MEDS: oxyCODONE HCl Immed Release 5 MG TABLET PO ×2 (10:57→17:56)
--- NOTE | 2022-11-18 11:39 | MHC.CM.PN ---
EMR reviewed and per MD rounds, pt not medically cleared for D/C, pt with hypotension, will need a blood transfusion, and D/C plan for psych. CM will continue to monitor.
[2022-11-18 11:50] LABS: Glucose, Whole Blood 154 mg/dL (60-115)
[2022-11-18] MEDS: Insulin Lispro 100 UNIT/ML 3 ML VIAL SUBCUT ×2 (11:57→21:45)
[2022-11-18] MEDS: dilTIAZem HCL CD 240 MG CAP.ER.DEG PO (13:31)
[2022-11-18 15:07] LABS: Glucose, Whole Blood 150 mg/dL (60-115)
--- NOTE | 2022-11-18 15:21 | MHC.CM.PN ---
This CM received a phone call from Hipolito Segundo ([phone]) who is the Carriage Operator at [facility] . Hipolito reported she had spoke with the family and they have some concerns about him going home safely and want LTC for him. Hipolito can be contacted with any further updates.
[2022-11-18 16:00] LABS: Vancomycin Random 16.6 mcg/mL (15-20)
[2022-11-18] MEDS: LORazepam 1 MG TABLET 2 MG PO (17:54)
[2022-11-18] MEDS: Albuterol Sulfate 90 MCG 8 GM INHALER 2 PUFF INHALE (20:48)
[2022-11-18] MEDS: Phenytoin Sodium Extended 100 MG CAPSULE 400 MG PO (21:08)
[2022-11-18] MEDS: QUEtiapine Fumarate 200 MG TABLET PO (21:08)
[2022-11-18] MEDS: Atorvastatin Calcium 80 MG TABLET PO (21:08)
[2022-11-18 21:23] LABS: Glucose, Whole Blood 203 mg/dL (60-115)
[2022-11-19] VITALS (8 sets, daily range): BP systolic 113–150; BP diastolic 55–89; PULSE 81–98; RESP 17–21; TEMP 36.4–36.9; O2SAT 90–95
[2022-11-19] MEDS: Omeprazole 20 MG CAPSULE.DR PO (04:29)
[2022-11-19] MEDS: vancomycin HCL 1,000 MG in 0.9 % Sodium Chloride 250 ML 270 MG IV ×2 (04:30→17:03)
[2022-11-19 06:43] LABS: Hematocrit 33.7 % (42.0-52.0); Hemoglobin 9.4 g/dl (14.0-18.0); Mean Corpuscular HGB Conc 27.9 g/dl (31.0-36.0); Mean Corpuscular Hemoglobin 22.4 pg (27.0-33.0); Mean Corpuscular Volume 80.2 fL (80.0-98.0); Mean Platelet Volume 9.9 fL (9.4-12.4); Platelet Count 362 X10*3/uL (160-400); White Blood Count 8.6 X10*3/uL (4.8-10.8)
[2022-11-19 07:08] LABS: Creatinine Clr Calc Pharmacy 136.2; Estimated Glomerular Filt Rate > 60
[2022-11-19 07:47] LABS: Glucose, Whole Blood 175 mg/dL (60-115)
[2022-11-19] MEDS: oxyCODONE HCl Immed Release 5 MG TABLET PO ×3 (08:03→22:54)
[2022-11-19] MEDS: LORazepam 1 MG TABLET 2 MG PO ×3 (08:03→22:54)
[2022-11-19] MEDS: dilTIAZem HCL CD 240 MG CAP.ER.DEG PO (08:04)
[2022-11-19] MEDS: metFORMIN HCl 1,000 MG TABLET 1000 MG PO (08:04)
[2022-11-19] MEDS: Apixaban 5 MG TABLET PO ×2 (08:04→22:54)
[2022-11-19] MEDS: Ferrous Sulfate 324 MG TABLET.DR PO (08:04)
[2022-11-19] MEDS: Digoxin 0.125 MG TABLET PO (08:04)
[2022-11-19] MEDS: DULoxetine HCl 60 MG CAPSULE.DR PO ×2 (08:04→22:53)
[2022-11-19] MEDS: Sennosides 8.6 MG TABLET PO (08:04)
[2022-11-19] MEDS: Metoprolol Tartrate 100 MG TABLET PO ×2 (08:04→22:53)
[2022-11-19] MEDS: Gabapentin 400 MG CAPSULE PO ×4 (08:04→22:55)
[2022-11-19] MEDS: Torsemide 20 MG TABLET 40 MG PO (08:04)
[2022-11-19] MEDS: Phenytoin Sodium Extended 100 MG CAPSULE 200 MG PO (08:05)
[2022-11-19] MEDS: ARIPiprazole 10 MG TABLET PO (08:05)
[2022-11-19] MEDS: Insulin Lispro 100 UNIT/ML 3 ML VIAL SUBCUT ×3 (08:06→22:52)
[2022-11-19] MEDS: 0.9 % Sodium Chloride Flush 3 ML SYRINGE IVFLUSH ×2 (08:09→17:07)
[2022-11-19] MEDS: Albuterol Sulfate 90 MCG 8 GM INHALER 2 PUFF INHALE ×2 (08:47→20:08)
--- NOTE | 2022-11-19 10:59 | P.PNIM_ITS ---
Subjective Subjective Date of Service: 11/19/22 Interval History: Seen and evaluated reporting difficulties breathing increase O2 requirements overnight Denies any fever, pain or lightheadedness BP recovered no other overnight events Review of Systems Review of Systems: Yes all other systems are reviewed and are negative Physical Exam Vital Signs: Vital Signs: Last Vital Signs Temp 97.7 F 11/19/22 07:24 Pulse 85 11/19/22 08:47 Resp 20 11/19/22 08:47 BP 126/78 11/19/22 07:24 Pulse Ox 93 11/19/22 07:24 O2 Del Method Nasal Cannula 11/19/22 07:24 O2 Flow Rate 5 11/19/22 07:24 BMI result Body Mass Index 45.1 Const: Other: Constitutional : Awake, interactive, not in distress Neck : Normal inspection, Supple Cardiovascular : RRR, no JVP, no lower extremity edema Respiratory : fair bilateral air entry decreased on the right base, fine crackles, expiratory wheezes , on 5L O2 Gastrointestinal: soft, lax, Normal bowel sounds, Non tender Skin : Warm, Dry Neurological : Alert & oriented x3, No focal deficit Objective Data Active Medications Acetaminophen (Acetaminophen 325 Mg Tablet) 650 mg PO Q6H PRN PRN Reason: Headache/Pain Mild Scale (1-3) Last Admin: 11/16/22 03:39 Dose: 650 mg Documented By: GINI Al Hydroxide/Mg Hydroxide (Magnesium Hydrox/Alum Hydrox 30 Ml Oral.Susp) 30 ml PO Q6H PRN PRN Reason: Heartburn/Nausea Albuterol Sulfate (Albuterol Sulfate 90 Mcg 8 Gm Inhaler) 2 puff INHALE Q4H PRN PRN Reason: Shortness Of Breath Last Admin: 11/19/22 08:47 Dose: 2 puff Documented By: FELIPE Apixaban (Apixaban 5 Mg Tablet) 5 mg PO BID [facility] Last Admin: 11/19/22 08:04 Dose: 5 mg Documented By: JEEVAN Aripiprazole (Aripiprazole 10 Mg Tablet) 10 mg PO DAILY [facility] Last Admin: 11/19/22 08:05 Dose: 10 mg Documented By: JEEVAN Atorvastatin Calcium (Atorvastatin Calcium 80 Mg Tablet) 80 mg PO BEDTIME [facility] Last Admin: 11/18/22 21:08 Dose: 80 mg Documented By: ANTOIC Bisacodyl (Bisacodyl 5 Mg Tablet.) 10 mg PO DAILY PRN PRN Reason: Constipation Digoxin (Digoxin 0.125 Mg Tablet) 0.125 mg PO DAILY [facility] Last Admin: 11/19/22 08:04 Dose: 0.125 mg Documented By: JEEVAN Diltiazem HCl (Diltiazem Hcl Cd 240 Mg Cap.Er.Deg) 240 mg PO DAILY [facility]; Protocol Last Admin: 11/19/22 08:04 Dose: 240 mg Documented By: JEEVAN Doxycycline Monohydrate (Doxycycline Monohydrate 100 Mg Capsule) 100 mg PO Q12H [facility] Stop: 12/23/22 09:01 Duloxetine HCl (Duloxetine Hcl 60 Mg Capsule.) 60 mg PO BID [facility] Last Admin: 11/19/22 08:04 Dose: 60 mg Documented By: JEEVAN Ferrous Sulfate (Ferrous Sulfate 324 Mg Tablet.) 324 mg PO MoWeFr@0900 [facility] Last Admin: 11/19/22 08:04 Dose: 324 mg Documented By: JEEVAN Fluticasone Propionate (Fluticasone Propionate Nasal 16 Gm [place]) 1 spray NOSTRIL-B BID [facility] Last Admin: 11/19/22 08:11 Dose: Not Given Documented By: JEEVAN Non-Admin Reason: Patient Refused Gabapentin (Gabapentin 400 Mg Capsule) 400 mg PO QID [facility] Last Admin: 11/19/22 08:04 Dose: 400 mg Documented By: JEEVAN Glucose (Glucose Gel 15 Gm Gel..Gram.) 15 gm PO Q15M PRN; Protocol PRN Reason: per Hypoglycemia Standing Ord. Guaifenesin (Guaifenesin La 600 Mg Tab.Er.12h) 600 mg PO BID [facility] Guaifenesin/Dextromethorphan (Guaifenesin Dm 100/10/5 Ml 5 Ml Syrup) 5 ml PO Q4H PRN PRN Reason: cough Last Admin: 11/18/22 02:10 Dose: 5 ml Documented By: JERONIMO Hydroxyzine HCl (Hydroxyzine Hcl 25 Mg Tablet) 25 mg PO TID PRN PRN Reason: Anxiety Last Admin: 11/13/22 23:54 Dose: 25 mg Documented By: GIAN Dextrose (D10) 250 mls @ 750 mls/hr IV Q15M PRN; Protocol PRN Reason: per Hypoglycemia Standing Ord. Vancomycin HCl 1,000 mg/ (Sodium Chloride) 270 mls @ 270 mls/hr IV Q12H [facility] Last Infusion: 11/19/22 05:42 Dose: 0 mls/hr Documented By: ANTOIC Ibuprofen (Ibuprofen 600 Mg Tablet) 600 mg PO Q6H PRN PRN Reason: Pain, Moderate(Pain Scale 4-6) Insulin Human Lispro (Insulin Lispro 100 Unit/Ml 3 Ml Vial) 0 unit SUBCUT QIDA [facility]; Protocol Last Admin: 11/19/22 08:06 Dose: 2 unit Documented By: JEEVAN Lidocaine (Lidocaine 4 % Patch Adh..Patch) 1 patch TRANSDERMA DAILY [facility] Last Admin: 11/19/22 08:11 Dose: Not Given Documented By: JEEVAN Non-Admin Reason: Patient Refused Loperamide HCl (Loperamide Hcl 2 Mg Capsule) 2 mg PO Q4H PRN PRN Reason: Diarrhea Last Admin: 11/13/22 20:57 Dose: 2 mg Documented By: GIAN Lorazepam (Lorazepam 1 Mg Tablet) 2 mg PO TID PRN PRN Reason: Anxiety Last Admin: 11/19/22 08:03 Dose: 2 mg Documented By: JEEVAN Magnesium Hydroxide (Milk Of Magnesia 30 Ml Oral.Susp) 30 ml PO DAILY PRN PRN Reason: Constipation Melatonin (Melatonin 3 Mg Tablet) 3 mg PO BEDTIME PRN PRN Reason: Insomnia Metformin HCl (Metformin Hcl 1,000 Mg Tablet) 1,000 mg PO DAILY [facility] Last Admin: 11/19/22 08:04 Dose: 1,000 mg Documented By: JEEVAN Metoprolol Tartrate (Metoprolol Tartrate 100 Mg Tablet) 100 mg PO BID [facility]; Protocol Last Admin: 11/19/22 08:04 Dose: 100 mg Documented By: JEEVAN Nitroglycerin (Nitroglycerin 0.4 Mg Tab.Subl) 0.4 mg SUBLINGUAL Q5M PRN PRN Reason: Chest Pain Last Admin: 11/15/22 18:29 Dose: 1 tab Documented By: COTEMA Nystatin (Nystatin Powder 15 Gm Bottle) 1 appl TOPICAL BID [facility]; Protocol Last Admin: 11/18/22 21:15 Dose: Not Given Documented By: ANTBISI Non-Admin Reason: Med Not Available Omeprazole (Omeprazole 20 Mg Capsule.Dr) 20 mg PO DAILY@0630 [facility] Last Admin: 11/19/22 04:29 Dose: 20 mg Documented By: ANTBISI Ondansetron HCl (Ondansetron Odt 4 Mg Tab.Rapdis) 4 mg TRANSLINGU Q8H PRN PRN Reason: Nausea Oxycodone HCl (Oxycodone Hcl Immed Release 5 Mg Tablet) 5 mg PO Q4H PRN PRN Reason: Pain, Moderate(Pain Scale 4-6) Last Admin: 11/19/22 08:03 Dose: 5 mg Documented By: JEEVAN Pharmacy Consult (Consult Rx Vancomycin Dosing) 1 each MISCELLANE DAILY PRN PRN Reason: Consult order Phenytoin Sodium (Phenytoin Sodium Extended 100 Mg Capsule) 200 mg PO DAILY [facility] Last Admin: 11/19/22 08:05 Dose: 200 mg Documented By: JEEVAN Phenytoin Sodium (Phenytoin Sodium Extended 100 Mg Capsule) 400 mg PO BEDTIME [facility] Last Admin: 11/18/22 21:08 Dose: 400 mg Documented By: ISIAH Quetiapine Fumarate (Quetiapine Fumarate 200 Mg Tablet) 200 mg PO BEDTIME [facility] Last Admin: 11/18/22 21:08 Dose: 200 mg Documented By: ANTBISI Quetiapine Fumarate (Quetiapine Fumarate 100 Mg Tablet) 100 mg PO BEDTIME PRN PRN Reason: Insomnia Last Admin: 11/13/22 23:54 Dose: 100 mg Documented By: GIAN Senna (Sennosides 8.6 Mg Tablet) 8.6 mg PO DAILY [facility] Last Admin: 11/19/22 08:04 Dose: 8.6 mg Documented By: JEEVAN Simethicone (Simethicone 80 Mg Tab.Chew) 80 mg PO TID PRN PRN Reason: Indigestion Last Admin: 11/13/22 23:54 Dose: 80 mg Documented By: GIAN Sodium Chloride (0.9 % Sodium Chloride Flush 3 Ml Syringe) 3 ml IVFLUSH QSHIFT [facility] Last Admin: 11/19/22 08:09 Dose: 3 ml Documented By: JEEVAN Torsemide (Torsemide 20 Mg Tablet) 40 mg PO DAILY [facility]; Protocol Last Admin: 11/19/22 08:04 Dose: 40 mg Documented By: JEEVAN Trazodone HCl (Trazodone Hcl 50 Mg Tablet) 50 mg PO BEDTIME PRN PRN Reason: Insomnia Labs 11/19/22 06:23 11/19/22 06:23 Labs: Laboratory Results - last 24 hr 11/18/22 11/18/22 11/18/22 10:25 11:39 15:03 MCV MCH MCHC RDW Plt Count MPV Absolute Nucleated RBC Nucleated RBC % (auto) Estim Creat Clear Calc Estimated GFR POC Glucose 154 H 150 H Random Vancomycin Blood Type A Positive Antibody Screen NEGATIVE Crossmatch See Detail 11/18/22 11/18/22 11/19/22 15:29 21:19 06:23 MCV MCH MCHC RDW Plt Count MPV Absolute Nucleated RBC Nucleated RBC % (auto) Estim Creat Clear Calc 136.2 Estimated GFR > 60 POC Glucose 203 H Random Vancomycin 16.6 Blood Type Antibody Screen Crossmatch 11/19/22 11/19/22 06:23 07:43 MCV 80.2 MCH 22.4 L MCHC 27.9 L RDW 21.0 H Plt Count 362 MPV 9.9 Absolute Nucleated RBC 0.000 Nucleated RBC % (auto) 0.0 Estim Creat Clear Calc Estimated GFR POC Glucose 175 H Random Vancomycin Blood Type Antibody Screen Crossmatch Assessment and Plan (1) Hypotension: Status: Acute (2) Osteomyelitis of foot: Status: Acute (3) Atelectasis of right lung: Status: Acute Plan 62M PMH paroxysmal afib, severe depression, morbid obesity, DM, chronic diastolic chf, gerd, moderate persistent asthma, epilepsy, HTN, history of CVA, presented with chest pain. RLL Atelactasis CXR showing RLL atelactasis chest PT mucinex, incentive spirometry on IV Vancomycin for OM treatment wean O2 down as tolerated Hypotension resolved received a unit of blood and IVF restarted BP meds restart Torsemide Chest pain Cardio appreciated, unlikely cardiac and get it all the time, PRN nitro on Eliquis and statin and beta-deysi troponin negative acute on chronic diastolic CHF and probable deconditioning improved was on both lasix and torsemide PO Keep on Torsemide only for now acute on chronic anemia iron defeciecny, inflammatory transfused 2 units prbc with good response follow H&H Morbid obesity Weight loss recommended Paroxysmal atrial fibrillation with rapid ventricular response metoprolol 100mg bid, Eliquis diltiazem increased to 240mg daily po dig 0.125 daily monitor on tele Diabetes Insulin, monitor point of care GERD PPI Moderate persistent asthma No acute exacerbation, bronchodilators as needed Mood disorder with suicidal ideation Continue Cymbalta, Abilify ?osteomyelitis of right distal 1st phalanx unclear chronicity Continue IV vancomycin until November 21, 2022, then start p.o. doxy DVT prophylaxis on Eliquis Full code reason for continued hospitalization: Dyspnea 2/2 Atelactasis in RLL w increase O2 requirmenet and discharge planning to psych. Time Spent With Patient Time: Total time managing care of this patient today ____ minutes. Quality Stroke Does the patient have a stroke diagnosis?: No VTE Prior VTE?: No VTE Risk Level:: Medical - moderate - high VTE Device Contraindication: Treatment Not Indicated VTE Drug Contraindication: N/A - Med Ordered
[2022-11-19 11:41] LABS: Glucose, Whole Blood 167 mg/dL (60-115)
--- NOTE | 2022-11-19 12:09 | PC.NURSE ---
pt refused camera at 1207 stating I know my rights. teletypewriter operator attempted education patient as to the rationale for the camera to no avail. Camera removed. teletypewriter operator stressed importance of using call womack appropriately.
[2022-11-19] MEDS: guaiFENesin LA 600 MG TAB.ER.12H PO ×2 (12:23→22:54)
[2022-11-19 15:36] LABS: Glucose, Whole Blood 125 mg/dL (60-115)
--- NOTE | 2022-11-19 15:49 | MHC.CM.PN ---
PER MD, PT NOT CLEARED TO DC TODAY HE IS EXPECTED TO BE READY TOMORROW AND [facility] WITH RESUMPTION OF [facility]
[2022-11-19 16:02] LABS: Vancomycin Random 17.5 mcg/mL (15-20)
--- NOTE | 2022-11-19 16:31 | HE.PHANOTE ---
VANCO DOSING ADJUSTMENT BASED ON SCR AND TROUGH OF 17.5 DOSE CONTINUED AT 1000 Q 12H. NEXT TROUGH 11/20 @ 1500
[2022-11-19 20:15] LABS: Glucose, Whole Blood 172 mg/dL (60-115)
[2022-11-19] MEDS: Atorvastatin Calcium 80 MG TABLET PO (22:53)
[2022-11-19] MEDS: Phenytoin Sodium Extended 100 MG CAPSULE 400 MG PO (22:53)
[2022-11-19] MEDS: QUEtiapine Fumarate 200 MG TABLET PO (22:54)
[2022-11-19] MEDS: Nystatin Powder 15 GM BOTTLE 1 APPL TOPICAL (22:55)
[2022-11-19] MEDS: Fluticasone Propionate Nasal 16 GM SPRAY 1 SPRAY NOSTRIL-B (22:55)
[2022-11-20] VITALS (8 sets, daily range): BP systolic 120–143; BP diastolic 60–78; PULSE 85–122; RESP 16–20; TEMP 36.3–36.7; O2SAT 80–98
[2022-11-20] MEDS: oxyCODONE HCl Immed Release 5 MG TABLET PO ×2 (03:34→20:26)
[2022-11-20] MEDS: vancomycin HCL 1,000 MG in 0.9 % Sodium Chloride 250 ML 270 MG IV (05:51)
[2022-11-20] MEDS: Omeprazole 20 MG CAPSULE.DR PO (05:59)
[2022-11-20 06:33] LABS: Creatinine Clr Calc Pharmacy 151.3; Estimated Glomerular Filt Rate > 60
[2022-11-20 07:21] LABS: Glucose, Whole Blood 171 mg/dL (60-115)
[2022-11-20] MEDS: Insulin Lispro 100 UNIT/ML 3 ML VIAL SUBCUT ×2 (07:59→11:57)
[2022-11-20] MEDS: Phenytoin Sodium Extended 100 MG CAPSULE 200 MG PO (08:00)
[2022-11-20] MEDS: Torsemide 20 MG TABLET 40 MG PO (08:00)
[2022-11-20] MEDS: Metoprolol Tartrate 100 MG TABLET PO ×2 (08:00→20:26)
[2022-11-20] MEDS: Fluticasone Propionate Nasal 16 GM SPRAY 1 SPRAY NOSTRIL-B (08:00)
[2022-11-20] MEDS: Gabapentin 400 MG CAPSULE PO (08:00)
[2022-11-20] MEDS: Sennosides 8.6 MG TABLET PO (08:00)
[2022-11-20] MEDS: ARIPiprazole 10 MG TABLET PO (08:00)
[2022-11-20] MEDS: Apixaban 5 MG TABLET PO ×2 (08:00→20:25)
[2022-11-20] MEDS: guaiFENesin LA 600 MG TAB.ER.12H PO ×2 (08:00→20:25)
[2022-11-20] MEDS: Digoxin 0.125 MG TABLET PO (08:01)
[2022-11-20] MEDS: DULoxetine HCl 60 MG CAPSULE.DR PO ×2 (08:01→20:25)
[2022-11-20] MEDS: metFORMIN HCl 1,000 MG TABLET 1000 MG PO (08:01)
[2022-11-20] MEDS: dilTIAZem HCL CD 240 MG CAP.ER.DEG PO (08:01)
[2022-11-20] MEDS: Nystatin Powder 15 GM BOTTLE 1 APPL TOPICAL ×2 (08:08→20:27)
[2022-11-20] MEDS: 0.9 % Sodium Chloride Flush 3 ML SYRINGE IVFLUSH ×2 (08:09→20:28)
--- NOTE | 2022-11-20 11:09 | HO.PM.IMPN ---
Subjective Subjective Date of Service: 11/20/22 Interval History: Seen and evaluated more sleepy and drowsy this morning reporting difficulties breathing , on 5L O2 repeated CXR showing atelactasis Denies any fever, pain or lightheadedness no other overnight events Review of Systems Review of Systems: Yes all other systems are reviewed and are negative Physical Exam Vital Signs: Vital Signs: Last Vital Signs Temp 97.8 F 11/20/22 07:10 Pulse 85 11/20/22 07:10 Resp 18 11/20/22 07:10 BP 120/75 11/20/22 07:10 Pulse Ox 95 11/20/22 07:10 O2 Del Method Nasal Cannula 11/20/22 07:10 O2 Flow Rate 5 11/20/22 07:10 BMI result Body Mass Index 45.1 Const: Other: Constitutional : Awake with stimulation, interactive, not in distress Neck : Normal inspection, Supple Cardiovascular : RRR, no JVP, no lower extremity edema Respiratory : fair bilateral air entry decreased on the right base, less crackles, expiratory wheezes , on 5L O2 Gastrointestinal: soft, lax, Normal bowel sounds, Non tender Skin : Warm, Dry Neurological : Alert & oriented x3, No focal deficit Objective Data Active Medications Acetaminophen (Acetaminophen 325 Mg Tablet) 650 mg PO Q6H PRN PRN Reason: Headache/Pain Mild Scale (1-3) Last Admin: 11/16/22 03:39 Dose: 650 mg Documented By: GINI Al Hydroxide/Mg Hydroxide (Magnesium Hydrox/Alum Hydrox 30 Ml Oral.Susp) 30 ml PO Q6H PRN PRN Reason: Heartburn/Nausea Albuterol Sulfate (Albuterol Sulfate 90 Mcg 8 Gm Inhaler) 2 puff INHALE Q4H PRN PRN Reason: Shortness Of Breath Last Admin: 11/19/22 20:08 Dose: 2 puff Documented By: KAYLIN Apixaban (Apixaban 5 Mg Tablet) 5 mg PO BID [facility] Last Admin: 11/20/22 08:00 Dose: 5 mg Documented By: HOWIE Aripiprazole (Aripiprazole 10 Mg Tablet) 10 mg PO DAILY [facility] Last Admin: 11/20/22 08:00 Dose: 10 mg Documented By: HOWIE Atorvastatin Calcium (Atorvastatin Calcium 80 Mg Tablet) 80 mg PO BEDTIME [facility] Last Admin: 11/19/22 22:53 Dose: 80 mg Documented By: MAUREEN Bisacodyl (Bisacodyl 5 Mg Tablet.) 10 mg PO DAILY PRN PRN Reason: Constipation Digoxin (Digoxin 0.125 Mg Tablet) 0.125 mg PO DAILY [facility] Last Admin: 11/20/22 08:01 Dose: 0.125 mg Documented By: HOWIE Diltiazem HCl (Diltiazem Hcl Cd 240 Mg Cap.Er.Deg) 240 mg PO DAILY [facility]; Protocol Last Admin: 11/20/22 08:01 Dose: 240 mg Documented By: HOWIE Doxycycline Monohydrate (Doxycycline Monohydrate 100 Mg Capsule) 100 mg PO Q12H [facility] Stop: 12/23/22 09:01 Duloxetine HCl (Duloxetine Hcl 60 Mg Capsule.) 60 mg PO BID [facility] Last Admin: 11/20/22 08:01 Dose: 60 mg Documented By: HOWIE Ferrous Sulfate (Ferrous Sulfate 324 Mg Tablet.) 324 mg PO MoWeFr@0900 [facility] Last Admin: 11/19/22 08:04 Dose: 324 mg Documented By: JEEVAN Fluticasone Propionate (Fluticasone Propionate Nasal 16 Gm [place]) 1 spray NOSTRIL-B BID [facility] Last Admin: 11/20/22 08:00 Dose: 1 spray Documented By: HOWIE Gabapentin (Gabapentin 100 Mg Capsule) 200 mg PO QID [facility] Glucose (Glucose Gel 15 Gm Gel..Gram.) 15 gm PO Q15M PRN; Protocol PRN Reason: per Hypoglycemia Standing Ord. Guaifenesin (Guaifenesin La 600 Mg Tab.Er.12h) 600 mg PO BID [facility] Last Admin: 11/20/22 08:00 Dose: 600 mg Documented By: HOWIE Guaifenesin/Dextromethorphan (Guaifenesin Dm 100/10/5 Ml 5 Ml Syrup) 5 ml PO Q4H PRN PRN Reason: cough Last Admin: 11/18/22 02:10 Dose: 5 ml Documented By: JERONIMO Hydroxyzine HCl (Hydroxyzine Hcl 25 Mg Tablet) 25 mg PO TID PRN PRN Reason: Anxiety Last Admin: 11/13/22 23:54 Dose: 25 mg Documented By: GIAN Dextrose (D10) 250 mls @ 750 mls/hr IV Q15M PRN; Protocol PRN Reason: per Hypoglycemia Standing Ord. Vancomycin HCl 1,000 mg/ (Sodium Chloride) 270 mls @ 270 mls/hr IV Q12H [facility] Last Infusion: 11/20/22 07:31 Dose: 0 mls/hr Documented By: HOWIE Insulin Human Lispro (Insulin Lispro 100 Unit/Ml 3 Ml Vial) 0 unit SUBCUT QIDACHS [facility]; Protocol Last Admin: 11/20/22 07:59 Dose: 2 unit Documented By: HOWIE Lidocaine (Lidocaine 4 % Patch Adh..Patch) 1 patch TRANSDERMA DAILY [facility] Last Admin: 11/20/22 08:08 Dose: Not Given Documented By: HOWIE Non-Admin Reason: Patient Refused Loperamide HCl (Loperamide Hcl 2 Mg Capsule) 2 mg PO Q4H PRN PRN Reason: Diarrhea Last Admin: 11/13/22 20:57 Dose: 2 mg Documented By: GIAN Lorazepam (Lorazepam 0.5 Mg Tablet) 0.5 mg PO TID PRN PRN Reason: Anxiety Magnesium Hydroxide (Milk Of Magnesia 30 Ml Oral.Susp) 30 ml PO DAILY PRN PRN Reason: Constipation Melatonin (Melatonin 3 Mg Tablet) 3 mg PO BEDTIME PRN PRN Reason: Insomnia Metformin HCl (Metformin Hcl 1,000 Mg Tablet) 1,000 mg PO DAILY [facility] Last Admin: 11/20/22 08:01 Dose: 1,000 mg Documented By: HOWIE Metoprolol Tartrate (Metoprolol Tartrate 100 Mg Tablet) 100 mg PO BID [facility]; Protocol Last Admin: 11/20/22 08:00 Dose: 100 mg Documented By: HOWIE Nitroglycerin (Nitroglycerin 0.4 Mg Tab.Subl) 0.4 mg SUBLINGUAL Q5M PRN PRN Reason: Chest Pain Last Admin: 11/15/22 18:29 Dose: 1 tab Documented By: COTEMA Nystatin (Nystatin Powder 15 Gm Bottle) 1 appl TOPICAL BID [facility]; Protocol Last Admin: 11/20/22 08:08 Dose: 1 appl Documented By: HOWIE Omeprazole (Omeprazole 20 Mg Capsule.Dr) 20 mg PO DAILY@0630 [facility] Last Admin: 11/20/22 05:59 Dose: 20 mg Documented By: MOISES Ondansetron HCl (Ondansetron Odt 4 Mg Tab.Rapdis) 4 mg TRANSLINGU Q8H PRN PRN Reason: Nausea Oxycodone HCl (Oxycodone Hcl Immed Release 5 Mg Tablet) 5 mg PO Q6H PRN PRN Reason: Pain, Moderate(Pain Scale 4-6) Pharmacy Consult (Consult Rx Vancomycin Dosing) 1 each MISCELLANE DAILY PRN PRN Reason: Consult order Phenytoin Sodium (Phenytoin Sodium Extended 100 Mg Capsule) 200 mg PO DAILY [facility] Last Admin: 11/20/22 08:00 Dose: 200 mg Documented By: HOWIE Phenytoin Sodium (Phenytoin Sodium Extended 100 Mg Capsule) 400 mg PO BEDTIME [facility] Last Admin: 11/19/22 22:53 Dose: 400 mg Documented By: MAUREEN Quetiapine Fumarate (Quetiapine Fumarate 200 Mg Tablet) 200 mg PO BEDTIME [facility] Last Admin: 11/19/22 22:54 Dose: 200 mg Documented By: MAUREEN Quetiapine Fumarate (Quetiapine Fumarate 100 Mg Tablet) 100 mg PO BEDTIME PRN PRN Reason: Insomnia Last Admin: 11/13/22 23:54 Dose: 100 mg Documented By: GIAN Senna (Sennosides 8.6 Mg Tablet) 8.6 mg PO DAILY [facility] Last Admin: 11/20/22 08:00 Dose: 8.6 mg Documented By: HOWIE Simethicone (Simethicone 80 Mg Tab.Chew) 80 mg PO TID PRN PRN Reason: Indigestion Last Admin: 11/13/22 23:54 Dose: 80 mg Documented By: GIAN Sodium Chloride (0.9 % Sodium Chloride Flush 3 Ml Syringe) 3 ml IVFLUSH QSHIFT [facility] Last Admin: 11/20/22 08:09 Dose: 3 ml Documented By: HOWIE Torsemide (Torsemide 20 Mg Tablet) 40 mg PO DAILY [facility]; Protocol Last Admin: 11/20/22 08:00 Dose: 40 mg Documented By: HOWIE Trazodone HCl (Trazodone Hcl 50 Mg Tablet) 50 mg PO BEDTIME PRN PRN Reason: Insomnia Labs 11/19/22 06:23 11/20/22 06:06 Labs: Laboratory Results - last 24 hr 11/19/22 11/19/22 11/19/22 11:37 15:12 15:33 Estim Creat Clear Calc Estimated GFR POC Glucose 167 H 125 H Random Vancomycin 17.5 11/19/22 11/20/22 11/20/22 20:12 06:06 07:15 Estim Creat Clear Calc 151.3 Estimated GFR > 60 POC Glucose 172 H 171 H Random Vancomycin Assessment and Plan (1) Atelectasis of right lung: Status: Acute (2) Osteomyelitis of foot: Status: Acute (3) Physical deconditioning: Status: Acute Plan 62M PMH paroxysmal afib, severe depression, morbid obesity, DM, chronic diastolic chf, gerd, moderate persistent asthma, epilepsy, HTN, history of CVA, presented with chest pain. RLL Atelactasis repeated CXR showing RLL atelactasis chest PT mucinex, incentive spirometry on IV Vancomycin for OM treatment add CPAP at night wean O2 down as tolerated Hypotension resolved received a unit of blood and IVF Chest pain Cardio appreciated, unlikely cardiac and get it all the time, PRN nitro on Eliquis and statin and beta-deysi troponin negative acute on chronic diastolic CHF and probable deconditioning improved was on both lasix and torsemide PO Keep on Torsemide only for now acute on chronic anemia iron defeciecny, inflammatory transfused 2 units prbc with good response follow H&H Morbid obesity Weight loss recommended Paroxysmal atrial fibrillation with rapid ventricular response metoprolol 100mg bid, Eliquis diltiazem increased to 240mg daily po dig 0.125 daily monitor on tele Diabetes Insulin, monitor point of care GERD PPI Moderate persistent asthma No acute exacerbation, bronchodilators as needed Mood disorder with suicidal ideation Continue Cymbalta, Abilify ?osteomyelitis of right distal 1st phalanx unclear chronicity Continue IV vancomycin until November 21, 2022, then start p.o. doxy DVT prophylaxis on Eliquis Full code reason for continued hospitalization: Dyspnea 2/2 Atelactasis in RLL w increase O2 requirmenet and discharge planning to psych. Time Spent With Patient Time: Total time managing care of this patient today ____ minutes. Quality Stroke Does the patient have a stroke diagnosis?: No VTE Prior VTE?: No VTE Risk Level:: Medical - moderate - high VTE Device Contraindication: Treatment Not Indicated VTE Drug Contraindication: N/A - Med Ordered
[2022-11-20 11:40] LABS: Glucose, Whole Blood 227 mg/dL (60-115)
[2022-11-20] MEDS: Gabapentin 100 MG CAPSULE 200 MG PO ×3 (11:57→20:25)
[2022-11-20 15:32] LABS: Vancomycin Random 20.3 mcg/mL (15-20)
[2022-11-20 16:02] LABS: Glucose, Whole Blood 143 mg/dL (60-115)
[2022-11-20] MEDS: vancomycin HCL 750 MG in 0.9 % Sodium Chloride 250 ML 265 MG IV (16:55)
[2022-11-20 19:45] LABS: Glucose, Whole Blood 139 mg/dL (60-115)
[2022-11-20] MEDS: QUEtiapine Fumarate 200 MG TABLET PO (20:24)
[2022-11-20] MEDS: Atorvastatin Calcium 80 MG TABLET PO (20:25)
[2022-11-20] MEDS: Phenytoin Sodium Extended 100 MG CAPSULE 400 MG PO (20:25)
[2022-11-20] MEDS: LORazepam 0.5 MG TABLET PO (20:26)
[2022-11-21 03:52] VITALS: BP 135/78; PULSE 94; RESP 20; TEMP 36.6; O2SAT 97
[2022-11-21] MEDS: Omeprazole 20 MG CAPSULE.DR PO (05:37)
[2022-11-21] MEDS: vancomycin HCL 750 MG in 0.9 % Sodium Chloride 250 ML 265 MG IV (05:37)
[2022-11-21 06:51] LABS: Hematocrit 32.7 % (42.0-52.0); Hemoglobin 9.2 g/dl (14.0-18.0); Mean Corpuscular HGB Conc 28.1 g/dl (31.0-36.0); Mean Corpuscular Hemoglobin 22.9 pg (27.0-33.0); Mean Corpuscular Volume 81.3 fL (80.0-98.0); Platelet Count 369 X10*3/uL (160-400); Red Blood Count 4.02 X10*6/uL (4.60-5.80); Red Cell Distribution Width 21.2 % (11.0-16.0); White Blood Count 9.5 X10*3/uL (4.8-10.8)
[2022-11-21 06:54] LABS: Anion Gap 14 (12-20); Blood Urea Nitrogen 8 mg/dL (9-16); Calcium 9.1 mg/dL (8.4-10.2); Carbon Dioxide 34 mmol/L (22-29); Chloride 95 mmol/L (96-108); Creatinine Clr Calc Pharmacy 145.9; Estimated Glomerular Filt Rate > 60; Glucose Random 175 mg/dL (60-115); Potassium 3.5 mmol/L (3.3-5.1); Sodium 139 mmol/L (135-145)
[2022-11-21 07:29] VITALS: BP 131/81; PULSE 83; RESP 18; TEMP 36.9; O2SAT 95
[2022-11-21 07:40] LABS: Glucose, Whole Blood 165 mg/dL (60-115)
[2022-11-21] MEDS: Digoxin 0.125 MG TABLET PO (07:52)
[2022-11-21] MEDS: ARIPiprazole 10 MG TABLET PO (07:52)
[2022-11-21] MEDS: Torsemide 20 MG TABLET 40 MG PO (07:52)
[2022-11-21] MEDS: dilTIAZem HCL CD 240 MG CAP.ER.DEG PO (07:52)
[2022-11-21] MEDS: guaiFENesin LA 600 MG TAB.ER.12H PO ×2 (07:52→21:48)
[2022-11-21] MEDS: Phenytoin Sodium Extended 100 MG CAPSULE 200 MG PO (07:52)
[2022-11-21] MEDS: metFORMIN HCl 1,000 MG TABLET 1000 MG PO (07:52)
[2022-11-21] MEDS: Apixaban 5 MG TABLET PO ×2 (07:52→21:47)
[2022-11-21] MEDS: DULoxetine HCl 60 MG CAPSULE.DR PO ×2 (07:53→21:47)
[2022-11-21] MEDS: Metoprolol Tartrate 100 MG TABLET PO ×2 (07:53→21:48)
[2022-11-21] MEDS: Gabapentin 100 MG CAPSULE 200 MG PO ×4 (07:53→21:46)
[2022-11-21] MEDS: Sennosides 8.6 MG TABLET PO (07:53)
[2022-11-21] MEDS: Nystatin Powder 15 GM BOTTLE 1 APPL TOPICAL ×2 (07:53→21:55)
[2022-11-21] MEDS: Insulin Lispro 100 UNIT/ML 3 ML VIAL SUBCUT ×2 (07:53→12:03)
[2022-11-21] MEDS: Fluticasone Propionate Nasal 16 GM SPRAY 1 SPRAY NOSTRIL-B (07:54)
[2022-11-21] MEDS: 0.9 % Sodium Chloride Flush 3 ML SYRINGE IVFLUSH ×3 (07:54→21:50)
[2022-11-21 11:32] VITALS: BP 116/58; PULSE 83; RESP 18; TEMP 36.6; O2SAT 95
[2022-11-21 11:50] LABS: Glucose, Whole Blood 155 mg/dL (60-115)
--- NOTE | 2022-11-21 12:26 | HO.PM.IMPN ---
Subjective Subjective Date of Service: 11/21/22 Interval History: Seen and evaluated more alert and interactive this morning breathing much better, tolerate CPAP at night Denies any fever, pain or lightheadedness no other overnight events Review of Systems Review of Systems: Yes all other systems are reviewed and are negative Physical Exam Vital Signs: Vital Signs: Last Vital Signs Temp 97.8 F 11/21/22 11:32 Pulse 83 11/21/22 11:32 Resp 18 11/21/22 11:32 BP 116/58 L 11/21/22 11:32 Pulse Ox 95 11/21/22 11:32 O2 Del Method Nasal Cannula 11/21/22 11:32 O2 Flow Rate 4 11/21/22 11:32 BMI result Body Mass Index 45.1 Const: Other: Constitutional : Awake with stimulation, interactive, not in distress Neck : Normal inspection, Supple Cardiovascular : RRR, no JVP, no lower extremity edema Respiratory : fair bilateral air entry decreased on the right base, less crackles, expiratory wheezes , on 5L O2 Gastrointestinal: soft, lax, Normal bowel sounds, Non tender Skin : Warm, Dry Neurological : Alert & oriented x3, No focal deficit Objective Data Active Medications Acetaminophen (Acetaminophen 325 Mg Tablet) 650 mg PO Q6H PRN PRN Reason: Headache/Pain Mild Scale (1-3) Last Admin: 11/16/22 03:39 Dose: 650 mg Documented By: GINI Al Hydroxide/Mg Hydroxide (Magnesium Hydrox/Alum Hydrox 30 Ml Oral.Susp) 30 ml PO Q6H PRN PRN Reason: Heartburn/Nausea Albuterol Sulfate (Albuterol Sulfate 90 Mcg 8 Gm Inhaler) 2 puff INHALE Q4H PRN PRN Reason: Shortness Of Breath Last Admin: 11/19/22 20:08 Dose: 2 puff Documented By: KAYLIN Apixaban (Apixaban 5 Mg Tablet) 5 mg PO BID [facility] Last Admin: 11/21/22 07:52 Dose: 5 mg Documented By: HOWIE Aripiprazole (Aripiprazole 10 Mg Tablet) 10 mg PO DAILY [facility] Last Admin: 11/21/22 07:52 Dose: 10 mg Documented By: HOWIE Atorvastatin Calcium (Atorvastatin Calcium 80 Mg Tablet) 80 mg PO BEDTIME [facility] Last Admin: 11/20/22 20:25 Dose: 80 mg Documented By: MOISES Bisacodyl (Bisacodyl 5 Mg Tablet.) 10 mg PO DAILY PRN PRN Reason: Constipation Digoxin (Digoxin 0.125 Mg Tablet) 0.125 mg PO DAILY [facility] Last Admin: 11/21/22 07:52 Dose: 0.125 mg Documented By: HOWIE Diltiazem HCl (Diltiazem Hcl Cd 240 Mg Cap.Er.Deg) 240 mg PO DAILY [facility]; Protocol Last Admin: 11/21/22 07:52 Dose: 240 mg Documented By: HOWIE Doxycycline Monohydrate (Doxycycline Monohydrate 100 Mg Capsule) 100 mg PO Q12H [facility] Stop: 12/23/22 09:01 Duloxetine HCl (Duloxetine Hcl 60 Mg Capsule.) 60 mg PO BID [facility] Last Admin: 11/21/22 07:53 Dose: 60 mg Documented By: HOWIE Ferrous Sulfate (Ferrous Sulfate 324 Mg Tablet.) 324 mg PO MoWeFr@0900 [facility] Last Admin: 11/19/22 08:04 Dose: 324 mg Documented By: JEEVAN Fluticasone Propionate (Fluticasone Propionate Nasal 16 Gm [place]) 1 spray NOSTRIL-B BID [facility] Last Admin: 11/21/22 07:54 Dose: 1 spray Documented By: HOWIE Gabapentin (Gabapentin 100 Mg Capsule) 200 mg PO QID [facility] Last Admin: 11/21/22 12:03 Dose: 200 mg Documented By: HOWIE Glucose (Glucose Gel 15 Gm Gel..Gram.) 15 gm PO Q15M PRN; Protocol PRN Reason: per Hypoglycemia Standing Ord. Guaifenesin (Guaifenesin La 600 Mg Tab.Er.12h) 600 mg PO BID [facility] Last Admin: 11/21/22 07:52 Dose: 600 mg Documented By: HOWIE Guaifenesin/Dextromethorphan (Guaifenesin Dm 100/10/5 Ml 5 Ml Syrup) 5 ml PO Q4H PRN PRN Reason: cough Last Admin: 11/18/22 02:10 Dose: 5 ml Documented By: JERONIMO Hydroxyzine HCl (Hydroxyzine Hcl 25 Mg Tablet) 25 mg PO TID PRN PRN Reason: Anxiety Last Admin: 11/13/22 23:54 Dose: 25 mg Documented By: GIAN Dextrose (D10) 250 mls @ 750 mls/hr IV Q15M PRN; Protocol PRN Reason: per Hypoglycemia Standing Ord. Vancomycin HCl 750 mg/ Sodium (Chloride) 265 mls @ 265 mls/hr IV Q12H [facility] Last Infusion: 11/21/22 07:07 Dose: 0 mls/hr Documented By: HOWIE Insulin Human Lispro (Insulin Lispro 100 Unit/Ml 3 Ml Vial) 0 unit SUBCUT QIDACHS [facility]; Protocol Last Admin: 11/21/22 12:03 Dose: 2 unit Documented By: HOWIE Lidocaine (Lidocaine 4 % Patch Adh..Patch) 1 patch TRANSDERMA DAILY [facility] Last Admin: 11/21/22 07:54 Dose: Not Given Documented By: HOWIE Non-Admin Reason: Patient Refused Loperamide HCl (Loperamide Hcl 2 Mg Capsule) 2 mg PO Q4H PRN PRN Reason: Diarrhea Last Admin: 11/13/22 20:57 Dose: 2 mg Documented By: GIAN Lorazepam (Lorazepam 0.5 Mg Tablet) 0.5 mg PO TID PRN PRN Reason: Anxiety Last Admin: 11/20/22 20:26 Dose: 0.5 mg Documented By: MOISES Magnesium Hydroxide (Milk Of Magnesia 30 Ml Oral.Susp) 30 ml PO DAILY PRN PRN Reason: Constipation Melatonin (Melatonin 3 Mg Tablet) 3 mg PO BEDTIME PRN PRN Reason: Insomnia Metformin HCl (Metformin Hcl 1,000 Mg Tablet) 1,000 mg PO DAILY [facility] Last Admin: 11/21/22 07:52 Dose: 1,000 mg Documented By: HOWIE Metoprolol Tartrate (Metoprolol Tartrate 100 Mg Tablet) 100 mg PO BID [facility]; Protocol Last Admin: 11/21/22 07:53 Dose: 100 mg Documented By: HOWIE Nitroglycerin (Nitroglycerin 0.4 Mg Tab.Subl) 0.4 mg SUBLINGUAL Q5M PRN PRN Reason: Chest Pain Last Admin: 11/15/22 18:29 Dose: 1 tab Documented By: COTEMA Nystatin (Nystatin Powder 15 Gm Bottle) 1 appl TOPICAL BID [facility]; Protocol Last Admin: 11/21/22 07:53 Dose: 1 appl Documented By: HOWIE Omeprazole (Omeprazole 20 Mg Capsule.Dr) 20 mg PO DAILY@0630 [facility] Last Admin: 11/21/22 05:37 Dose: 20 mg Documented By: MOISES Ondansetron HCl (Ondansetron Odt 4 Mg Tab.Rapdis) 4 mg TRANSLINGU Q8H PRN PRN Reason: Nausea Oxycodone HCl (Oxycodone Hcl Immed Release 5 Mg Tablet) 5 mg PO Q6H PRN PRN Reason: Pain, Moderate(Pain Scale 4-6) Last Admin: 11/20/22 20:26 Dose: 5 mg Documented By: MOISES Pharmacy Consult (Consult Rx Vancomycin Dosing) 1 each MISCELLANE DAILY PRN PRN Reason: Consult order Phenytoin Sodium (Phenytoin Sodium Extended 100 Mg Capsule) 200 mg PO DAILY [facility] Last Admin: 11/21/22 07:52 Dose: 200 mg Documented By: HOWIE Phenytoin Sodium (Phenytoin Sodium Extended 100 Mg Capsule) 400 mg PO BEDTIME [facility] Last Admin: 11/20/22 20:25 Dose: 400 mg Documented By: MOISES Quetiapine Fumarate (Quetiapine Fumarate 200 Mg Tablet) 200 mg PO BEDTIME [facility] Last Admin: 11/20/22 20:24 Dose: 200 mg Documented By: MOISES Quetiapine Fumarate (Quetiapine Fumarate 100 Mg Tablet) 100 mg PO BEDTIME PRN PRN Reason: Insomnia Last Admin: 11/13/22 23:54 Dose: 100 mg Documented By: GIAN Senna (Sennosides 8.6 Mg Tablet) 8.6 mg PO DAILY [facility] Last Admin: 11/21/22 07:53 Dose: 8.6 mg Documented By: HOWIE Simethicone (Simethicone 80 Mg Tab.Chew) 80 mg PO TID PRN PRN Reason: Indigestion Last Admin: 11/13/22 23:54 Dose: 80 mg Documented By: GIAN Sodium Chloride (0.9 % Sodium Chloride Flush 3 Ml Syringe) 3 ml IVFLUSH QSHIFT [facility] Last Admin: 11/21/22 07:54 Dose: 3 ml Documented By: HOWIE Torsemide (Torsemide 20 Mg Tablet) 40 mg PO DAILY [facility]; Protocol Last Admin: 11/21/22 07:52 Dose: 40 mg Documented By: HOWIE Trazodone HCl (Trazodone Hcl 50 Mg Tablet) 50 mg PO BEDTIME PRN PRN Reason: Insomnia Labs 11/21/22 06:00 11/21/22 06:00 Labs: Laboratory Results - last 24 hr 11/20/22 11/20/22 11/20/22 15:08 15:59 19:40 MCV MCH MCHC RDW Plt Count MPV Absolute Nucleated RBC Nucleated RBC % (auto) Anion Gap Estim Creat Clear Calc Estimated GFR POC Glucose 143 H 139 H Random Glucose Calcium Random Vancomycin 20.3 H 11/21/22 11/21/22 11/21/22 06:00 06:00 07:32 MCV 81.3 MCH 22.9 L MCHC 28.1 L RDW 21.2 H Plt Count 369 MPV 10.0 Absolute Nucleated RBC 0.000 Nucleated RBC % (auto) 0.0 Anion Gap 14 Estim Creat Clear Calc 145.9 Estimated GFR > 60 POC Glucose 165 H Random Glucose 175 H Calcium 9.1 D Random Vancomycin 11/21/22 11:37 MCV MCH MCHC RDW Plt Count MPV Absolute Nucleated RBC Nucleated RBC % (auto) Anion Gap Estim Creat Clear Calc Estimated GFR POC Glucose 155 H Random Glucose Calcium Random Vancomycin Assessment and Plan (1) Atelectasis of right lung: Status: Acute (2) Osteomyelitis of foot: Status: Acute (3) Physical deconditioning: Status: Acute (4) Major depressive disorder: Status: Acute Plan 62M PMH paroxysmal afib, severe depression, morbid obesity, DM, chronic diastolic chf, gerd, moderate persistent asthma, epilepsy, HTN, history of CVA, presented with chest pain. Dyspnea 2/2 RLL Atelactasis improving chest PT mucinex, incentive spirometry on IV Vancomycin for OM treatment Tolerated CPAP at night wean O2 down as tolerated Hypotension resolved received a unit of blood and IVF Chest pain Cardio appreciated, unlikely cardiac and get it all the time, PRN nitro on Eliquis and statin and beta-deysi troponin negative acute on chronic diastolic CHF and probable deconditioning improved was on both lasix and torsemide PO Keep on Torsemide only for now acute on chronic anemia iron defeciecny, inflammatory transfused 2 units prbc with good response follow H&H Morbid obesity Weight loss recommended Paroxysmal atrial fibrillation with rapid ventricular response metoprolol 100mg bid, Eliquis diltiazem increased to 240mg daily po dig 0.125 daily monitor on tele Diabetes Insulin, monitor point of care GERD PPI Moderate persistent asthma No acute exacerbation, bronchodilators as needed Mood disorder with suicidal ideation Continue Cymbalta, Abilify ?osteomyelitis of right distal 1st phalanx unclear chronicity Continue IV vancomycin until November 21, 2022, then start p.o. doxy DVT prophylaxis on Eliquis Full code reason for continued hospitalization: Dyspnea 2/2 Atelactasis in RLL w increase O2 requirmenet and discharge planning to psych. Time Spent With Patient Time: Total time managing care of this patient today ____ minutes. Quality Stroke Does the patient have a stroke diagnosis?: No VTE Prior VTE?: No VTE Risk Level:: Medical - moderate - high VTE Device Contraindication: Treatment Not Indicated VTE Drug Contraindication: N/A - Med Ordered
--- NOTE | 2022-11-21 13:54 | MHC.CARE ---
Patient is medically cleared. Care Team assessment complete. Patient referral to case management for SNF or assisted living placement. IPLOC not needed.
[2022-11-21 16:00] VITALS: BP 145/84; PULSE 87; RESP 20; TEMP 36.5; O2SAT 92
[2022-11-21 16:35] LABS: Glucose, Whole Blood 138 mg/dL (60-115)
[2022-11-21] MEDS: vancomycin HCL 1,000 MG in 0.9 % Sodium Chloride 250 ML 270 MG IV (17:03)
[2022-11-21 19:04] VITALS: BP 143/84; PULSE 95; RESP 18; TEMP 36.7; O2SAT 94
[2022-11-21 21:19] LABS: Glucose, Whole Blood 135 mg/dL (60-115)
[2022-11-21] MEDS: Atorvastatin Calcium 80 MG TABLET PO (21:45)
[2022-11-21] MEDS: oxyCODONE HCl Immed Release 5 MG TABLET PO (21:46)
[2022-11-21] MEDS: QUEtiapine Fumarate 200 MG TABLET PO (21:47)
[2022-11-21] MEDS: LORazepam 0.5 MG TABLET PO (21:48)
[2022-11-21] MEDS: Phenytoin Sodium Extended 100 MG CAPSULE 400 MG PO (21:49)
[2022-11-21] MEDS: Albuterol Sulfate 90 MCG 8 GM INHALER 2 PUFF INHALE (22:34)
[2022-11-21 22:35] VITALS: PULSE 116; RESP 18; O2SAT 95
[2022-11-22] VITALS (7 sets, daily range): BP systolic 113–148; BP diastolic 57–89; PULSE 67–105; RESP 17–21; TEMP 36.3–37.2; O2SAT 92–97
[2022-11-22] MEDS: Omeprazole 20 MG CAPSULE.DR PO (05:45)
[2022-11-22] MEDS: vancomycin HCL 750 MG in 0.9 % Sodium Chloride 250 ML 265 MG IV (05:48)
[2022-11-22 06:52] LABS: Creatinine Clr Calc Pharmacy 140.9; Estimated Glomerular Filt Rate > 60
[2022-11-22 07:49] LABS: Glucose, Whole Blood 185 mg/dL (60-115)
[2022-11-22] MEDS: ARIPiprazole 10 MG TABLET PO (08:04)
[2022-11-22] MEDS: Apixaban 5 MG TABLET PO ×2 (08:04→21:12)
[2022-11-22] MEDS: Phenytoin Sodium Extended 100 MG CAPSULE 200 MG PO (08:04)
[2022-11-22] MEDS: metFORMIN HCl 1,000 MG TABLET 1000 MG PO (08:04)
[2022-11-22] MEDS: Torsemide 20 MG TABLET 40 MG PO (08:04)
[2022-11-22] MEDS: Digoxin 0.125 MG TABLET PO (08:04)
[2022-11-22] MEDS: Metoprolol Tartrate 100 MG TABLET PO ×2 (08:05→21:11)
[2022-11-22] MEDS: Gabapentin 100 MG CAPSULE 200 MG PO ×4 (08:05→21:11)
[2022-11-22] MEDS: DULoxetine HCl 60 MG CAPSULE.DR PO ×2 (08:05→21:11)
[2022-11-22] MEDS: guaiFENesin LA 600 MG TAB.ER.12H PO ×2 (08:05→21:12)
[2022-11-22] MEDS: Insulin Lispro 100 UNIT/ML 3 ML VIAL SUBCUT ×4 (08:05→21:05)
[2022-11-22] MEDS: 0.9 % Sodium Chloride Flush 3 ML SYRINGE IVFLUSH (08:05)
[2022-11-22] MEDS: dilTIAZem HCL CD 240 MG CAP.ER.DEG PO (08:05)
[2022-11-22] MEDS: Nystatin Powder 15 GM BOTTLE 1 APPL TOPICAL ×2 (08:14→21:03)
[2022-11-22] MEDS: oxyCODONE HCl Immed Release 5 MG TABLET PO ×2 (08:26→21:12)
[2022-11-22] MEDS: LORazepam 0.5 MG TABLET PO ×2 (08:26→21:12)
[2022-11-22 11:44] LABS: Glucose, Whole Blood 201 mg/dL (60-115)
--- NOTE | 2022-11-22 14:00 | HO.REMOVAL ---
Removal of PICC/Midline Removal of PICC/Midline: Removal of PICC/Midline: 1. Date: [11/22/2022] 2. Reason removed: IV therapy complete[] 3. Inserted length: [46 cm single lumen] 4. Removed length: [46 cm single lumen/ intact] 5. A dressing was placed over the site upon removal. No edema or bleeding at the site. Pt tatiana procedure well, denies pain or other.
--- NOTE | 2022-11-22 14:31 | HO.PM.IMPN ---
Subjective Subjective Date of Service: 11/22/22 Interval History: Seen and evaluated more alert and interactive this morning breathing much better, tolerate CPAP at night Denies any fever, pain or lightheadedness no other overnight events Physical Exam Vital Signs: Vital Signs: Last Vital Signs Temp 98.2 F 11/22/22 11:03 Pulse 72 11/22/22 11:03 Resp 19 11/22/22 11:03 BP 113/57 L 11/22/22 11:03 Pulse Ox 94 11/22/22 11:03 O2 Del Method Nasal Cannula 11/22/22 11:03 O2 Flow Rate 3 11/22/22 11:03 BMI result Body Mass Index 45.1 Const: Other: Constitutional : Awake with stimulation, interactive, not in distress Neck : Normal inspection, Supple Cardiovascular : RRR, no JVP, no lower extremity edema Respiratory : fair bilateral air entry decreased on the right base, less crackles, expiratory wheezes , on 5L O2 Gastrointestinal: soft, lax, Normal bowel sounds, Non tender Skin : Warm, Dry Neurological : Alert & oriented x3, No focal deficit Objective Data Active Medications Acetaminophen (Acetaminophen 325 Mg Tablet) 650 mg PO Q6H PRN PRN Reason: Headache/Pain Mild Scale (1-3) Last Admin: 11/16/22 03:39 Dose: 650 mg Documented By: GNII Al Hydroxide/Mg Hydroxide (Magnesium Hydrox/Alum Hydrox 30 Ml Oral.Susp) 30 ml PO Q6H PRN PRN Reason: Heartburn/Nausea Albuterol Sulfate (Albuterol Sulfate 90 Mcg 8 Gm Inhaler) 2 puff INHALE Q4H PRN PRN Reason: Shortness Of Breath Last Admin: 11/21/22 22:34 Dose: 2 puff Documented By: TABBY Apixaban (Apixaban 5 Mg Tablet) 5 mg PO BID [facility] Last Admin: 11/22/22 08:04 Dose: 5 mg Documented By: TYLER Aripiprazole (Aripiprazole 10 Mg Tablet) 10 mg PO DAILY [facility] Last Admin: 11/22/22 08:04 Dose: 10 mg Documented By: TYLER Atorvastatin Calcium (Atorvastatin Calcium 80 Mg Tablet) 80 mg PO BEDTIME [facility] Last Admin: 11/21/22 21:45 Dose: 80 mg Documented By: MOISES Bisacodyl (Bisacodyl 5 Mg Tablet.) 10 mg PO DAILY PRN PRN Reason: Constipation Digoxin (Digoxin 0.125 Mg Tablet) 0.125 mg PO DAILY [facility] Last Admin: 11/22/22 08:04 Dose: 0.125 mg Documented By: TYLER Diltiazem HCl (Diltiazem Hcl Cd 240 Mg Cap.Er.Deg) 240 mg PO DAILY [facility]; Protocol Last Admin: 11/22/22 08:05 Dose: 240 mg Documented By: TYLER Doxycycline Monohydrate (Doxycycline Monohydrate 100 Mg Capsule) 100 mg PO Q12H [facility] Stop: 12/22/22 21:01 Duloxetine HCl (Duloxetine Hcl 60 Mg Capsule.) 60 mg PO BID [facility] Last Admin: 11/22/22 08:05 Dose: 60 mg Documented By: TYLER Ferrous Sulfate (Ferrous Sulfate 324 Mg Tablet.) 324 mg PO MoWeFr@0900 [facility] Last Admin: 11/22/22 08:08 Dose: Not Given Documented By: TYLER Non-Admin Reason: Patient Refused Fluticasone Propionate (Fluticasone Propionate Nasal 16 Gm [place]) 1 spray NOSTRIL-B BID [facility] Last Admin: 11/22/22 08:15 Dose: Not Given Documented By: TYLER Non-Admin Reason: Patient Refused Gabapentin (Gabapentin 100 Mg Capsule) 200 mg PO QID [facility] Last Admin: 11/22/22 11:59 Dose: 200 mg Documented By: TYLER Glucose (Glucose Gel 15 Gm Gel..Gram.) 15 gm PO Q15M PRN; Protocol PRN Reason: per Hypoglycemia Standing Ord. Guaifenesin (Guaifenesin La 600 Mg Tab.Er.12h) 600 mg PO BID [facility] Last Admin: 11/22/22 08:05 Dose: 600 mg Documented By: TYLER Guaifenesin/Dextromethorphan (Guaifenesin Dm 100/10/5 Ml 5 Ml Syrup) 5 ml PO Q4H PRN PRN Reason: cough Last Admin: 11/18/22 02:10 Dose: 5 ml Documented By: JERONIMO Hydroxyzine HCl (Hydroxyzine Hcl 25 Mg Tablet) 25 mg PO TID PRN PRN Reason: Anxiety Last Admin: 11/13/22 23:54 Dose: 25 mg Documented By: GIAN Dextrose (D10) 250 mls @ 750 mls/hr IV Q15M PRN; Protocol PRN Reason: per Hypoglycemia Standing Ord. Insulin Human Lispro (Insulin Lispro 100 Unit/Ml 3 Ml Vial) 0 unit SUBCUT QIDACHS [facility]; Protocol Last Admin: 11/22/22 11:57 Dose: 4 unit Documented By: TYLER Lidocaine (Lidocaine 4 % Patch Adh..Patch) 1 patch TRANSDERMA DAILY [facility] Last Admin: 11/22/22 08:07 Dose: Not Given Documented By: TYLER Non-Admin Reason: Patient Refused Loperamide HCl (Loperamide Hcl 2 Mg Capsule) 2 mg PO Q4H PRN PRN Reason: Diarrhea Last Admin: 11/13/22 20:57 Dose: 2 mg Documented By: GIAN Lorazepam (Lorazepam 0.5 Mg Tablet) 0.5 mg PO TID PRN PRN Reason: Anxiety Last Admin: 11/22/22 08:26 Dose: 0.5 mg Documented By: TYLER Magnesium Hydroxide (Milk Of Magnesia 30 Ml Oral.Susp) 30 ml PO DAILY PRN PRN Reason: Constipation Melatonin (Melatonin 3 Mg Tablet) 3 mg PO BEDTIME PRN PRN Reason: Insomnia Metformin HCl (Metformin Hcl 1,000 Mg Tablet) 1,000 mg PO DAILY [facility] Last Admin: 11/22/22 08:04 Dose: 1,000 mg Documented By: TYLER Metoprolol Tartrate (Metoprolol Tartrate 100 Mg Tablet) 100 mg PO BID [facility]; Protocol Last Admin: 11/22/22 08:05 Dose: 100 mg Documented By: TYLER Nitroglycerin (Nitroglycerin 0.4 Mg Tab.Subl) 0.4 mg SUBLINGUAL Q5M PRN PRN Reason: Chest Pain Last Admin: 11/15/22 18:29 Dose: 1 tab Documented By: COTEMA Nystatin (Nystatin Powder 15 Gm Bottle) 1 appl TOPICAL BID [facility]; Protocol Last Admin: 11/22/22 08:14 Dose: 1 appl Documented By: TYLER Omeprazole (Omeprazole 20 Mg Capsule.Dr) 20 mg PO DAILY@0630 [facility] Last Admin: 11/22/22 05:45 Dose: 20 mg Documented By: MAUREEN Ondansetron HCl (Ondansetron Odt 4 Mg Tab.Rapdis) 4 mg TRANSLINGU Q8H PRN PRN Reason: Nausea Oxycodone HCl (Oxycodone Hcl Immed Release 5 Mg Tablet) 5 mg PO Q6H PRN PRN Reason: Pain, Moderate(Pain Scale 4-6) Last Admin: 11/22/22 08:26 Dose: 5 mg Documented By: TYLER Phenytoin Sodium (Phenytoin Sodium Extended 100 Mg Capsule) 200 mg PO DAILY [facility] Last Admin: 11/22/22 08:04 Dose: 200 mg Documented By: TYLER Phenytoin Sodium (Phenytoin Sodium Extended 100 Mg Capsule) 400 mg PO BEDTIME [facility] Last Admin: 11/21/22 21:49 Dose: 400 mg Documented By: MOISES Quetiapine Fumarate (Quetiapine Fumarate 200 Mg Tablet) 200 mg PO BEDTIME [facility] Last Admin: 11/21/22 21:47 Dose: 200 mg Documented By: MOISES Quetiapine Fumarate (Quetiapine Fumarate 100 Mg Tablet) 100 mg PO BEDTIME PRN PRN Reason: Insomnia Last Admin: 11/13/22 23:54 Dose: 100 mg Documented By: GIAN Senna (Sennosides 8.6 Mg Tablet) 8.6 mg PO DAILY [facility] Last Admin: 11/22/22 08:07 Dose: Not Given Documented By: TYLER Non-Admin Reason: Patient Refused Simethicone (Simethicone 80 Mg Tab.Chew) 80 mg PO TID PRN PRN Reason: Indigestion Last Admin: 11/13/22 23:54 Dose: 80 mg Documented By: GIAN Sodium Chloride (0.9 % Sodium Chloride Flush 3 Ml Syringe) 3 ml IVFLUSH QSHIFT [facility] Last Admin: 11/22/22 08:05 Dose: 3 ml Documented By: TYLER Torsemide (Torsemide 20 Mg Tablet) 40 mg PO DAILY [facility]; Protocol Last Admin: 11/22/22 08:04 Dose: 40 mg Documented By: TYLER Trazodone HCl (Trazodone Hcl 50 Mg Tablet) 50 mg PO BEDTIME PRN PRN Reason: Insomnia Labs 11/21/22 06:00 06/19/23 06:12 Labs: Laboratory Results - last 24 hr 11/21/22 11/21/22 11/21/22 15:09 16:19 20:43 Estim Creat Clear Calc Estimated GFR POC Glucose 138 H 135 H Random Vancomycin 16.0 11/22/22 11/22/22 11/22/22 06:12 07:45 11:02 Estim Creat Clear Calc 140.9 Estimated GFR > 60 POC Glucose 185 H 201 H Random Vancomycin Assessment and Plan (1) Atelectasis of right lung: Status: Acute (2) Seizure disorder: Status: Acute (3) Osteomyelitis of foot: Status: Acute (4) Atrial fibrillation with rapid ventricular response: Status: Acute (5) Chronic diabetic ulcer of foot determined by examination: Status: Acute (6) Physical deconditioning: Status: Acute Plan 62M PMH paroxysmal afib, severe depression, morbid obesity, DM, chronic diastolic chf, gerd, moderate persistent asthma, epilepsy, HTN, history of CVA, presented with chest pain. Dyspnea 2/2 RLL Atelactasis improved chest PT mucinex, incentive spirometry CPAP at night wean O2 down as tolerated Physical deconditioning PT rec SNF Hypotension resolved received a unit of blood and IVF Chest pain Cardio appreciated, unlikely cardiac and get it all the time, PRN nitro on Eliquis and statin and beta-deysi troponin negative acute on chronic diastolic CHF and probable deconditioning improved was on both lasix and torsemide PO Keep on Torsemide only for now acute on chronic anemia iron deficiency, inflammatory transfused 2 units prbc with good response follow H&H Morbid obesity Weight loss recommended Paroxysmal atrial fibrillation with rapid ventricular response metoprolol 100mg bid, Eliquis diltiazem increased to 240mg daily po dig 0.125 daily monitor on tele Diabetes Insulin, monitor point of care GERD PPI Moderate persistent asthma No acute exacerbation, bronchodilators as needed Mood disorder with suicidal ideation Continue Cymbalta, Abilify ?osteomyelitis of right distal 1st phalanx unclear chronicity Finished IV vancomycin until November 21, 2022 DC PICC start p.o. doxy DVT prophylaxis on Eliquis Full code reason for continued hospitalization: discharge planning to SNF Time Spent With Patient Time: Total time managing care of this patient today ____ minutes. Quality Stroke Does the patient have a stroke diagnosis?: No VTE Prior VTE?: No VTE Risk Level:: Medical - moderate - high VTE Device Contraindication: Treatment Not Indicated VTE Drug Contraindication: N/A - Med Ordered
--- NOTE | 2022-11-22 15:09 | MHC.CM.PN ---
EMR REVIEWED, PER PSYCH SW REFERRAL WAS PLACED TO [facility] AND THEY HAD CALLED HER TUESDAY ASKING FOR UPDATES, REFERRAL TO [facility] W/UPDATES SENT AND CM AWAITING RESPONSE, CM WILL CONT TO FOLLOW.
[2022-11-22 15:30] LABS: Glucose, Whole Blood 156 mg/dL (60-115)
[2022-11-22 16:00] LABS: Vancomycin Random 16.1 mcg/mL (15-20)
[2022-11-22 20:30] LABS: Glucose, Whole Blood 174 mg/dL (60-115)
[2022-11-22] MEDS: Atorvastatin Calcium 80 MG TABLET PO (21:11)
[2022-11-22] MEDS: QUEtiapine Fumarate 200 MG TABLET PO (21:11)
[2022-11-22] MEDS: Phenytoin Sodium Extended 100 MG CAPSULE 400 MG PO (21:12)
[2022-11-23] VITALS (8 sets, daily range): BP systolic 118–144; BP diastolic 56–81; PULSE 65–122; RESP 14–20; TEMP 35.9–37.4; O2SAT 90–98
[2022-11-23] MEDS: oxyCODONE HCl Immed Release 5 MG TABLET PO ×3 (05:31→23:59)
[2022-11-23] MEDS: Omeprazole 20 MG CAPSULE.DR PO (05:31)
[2022-11-23] MEDS: LORazepam 0.5 MG TABLET PO ×2 (05:31→16:57)
[2022-11-23 07:14] LABS: Creatinine Clr Calc Pharmacy 151.3; Estimated Glomerular Filt Rate > 60
[2022-11-23 07:26] LABS: Glucose, Whole Blood 151 mg/dL (60-115)
[2022-11-23] MEDS: Insulin Lispro 100 UNIT/ML 3 ML VIAL SUBCUT ×2 (08:43→11:34)
[2022-11-23] MEDS: Doxycycline Monohydrate 100 MG CAPSULE PO ×2 (08:45→23:27)
[2022-11-23] MEDS: Phenytoin Sodium Extended 100 MG CAPSULE 200 MG PO (08:45)
[2022-11-23] MEDS: ARIPiprazole 10 MG TABLET PO (08:45)
[2022-11-23] MEDS: Gabapentin 100 MG CAPSULE 200 MG PO ×3 (08:45→23:27)
[2022-11-23] MEDS: Torsemide 20 MG TABLET 40 MG PO (08:45)
[2022-11-23] MEDS: dilTIAZem HCL CD 240 MG CAP.ER.DEG PO (08:46)
[2022-11-23] MEDS: Metoprolol Tartrate 100 MG TABLET PO ×2 (08:46→23:27)
[2022-11-23] MEDS: Apixaban 5 MG TABLET PO ×2 (08:46→23:28)
[2022-11-23] MEDS: Sennosides 8.6 MG TABLET PO (08:46)
[2022-11-23] MEDS: Digoxin 0.125 MG TABLET PO (08:46)
[2022-11-23] MEDS: DULoxetine HCl 60 MG CAPSULE.DR PO ×2 (08:46→23:27)
[2022-11-23] MEDS: metFORMIN HCl 1,000 MG TABLET 1000 MG PO (08:46)
[2022-11-23] MEDS: guaiFENesin LA 600 MG TAB.ER.12H PO ×2 (08:46→23:26)
[2022-11-23] MEDS: Nystatin Powder 15 GM BOTTLE 1 APPL TOPICAL (08:47)
[2022-11-23] MEDS: Fluticasone Propionate Nasal 16 GM SPRAY 1 SPRAY NOSTRIL-B (08:48)
[2022-11-23 11:02] LABS: Glucose, Whole Blood 185 mg/dL (60-115)
--- NOTE | 2022-11-23 13:42 | P.PNIM_ITS ---
Subjective Subjective Date of Service: 11/23/22 Interval History: Seen and evaluated alert and interactive did not use CPAP at night and did not sleep well Denies any fever, pain or lightheadedness no other overnight events Review of Systems Review of Systems: Yes all other systems are reviewed and are negative Physical Exam Vital Signs: Vital Signs: Last Vital Signs Temp 96.7 F L 11/23/22 11:50 Pulse 78 11/23/22 11:50 Resp 19 11/23/22 11:50 BP 120/56 L 11/23/22 11:50 Pulse Ox 90 L 11/23/22 11:50 O2 Del Method Nasal Cannula 11/23/22 11:50 O2 Flow Rate 3 11/23/22 11:50 BMI result Body Mass Index 45.1 Const: Other: Constitutional : Awake with stimulation, interactive, not in distress Neck : Normal inspection, Supple Cardiovascular : RRR, no JVP, no lower extremity edema Respiratory : fair bilateral air entry decreased on the right base, less crackles, expiratory wheezes , on 3-4L O2 Gastrointestinal: soft, lax, Normal bowel sounds, Non tender Skin : Warm, Dry Neurological : Alert & oriented x3, No focal deficit Objective Data Active Medications Acetaminophen (Acetaminophen 325 Mg Tablet) 650 mg PO Q6H PRN PRN Reason: Headache/Pain Mild Scale (1-3) Last Admin: 11/16/22 03:39 Dose: 650 mg Documented By: GINI Al Hydroxide/Mg Hydroxide (Magnesium Hydrox/Alum Hydrox 30 Ml Oral.Susp) 30 ml PO Q6H PRN PRN Reason: Heartburn/Nausea Albuterol Sulfate (Albuterol Sulfate 90 Mcg 8 Gm Inhaler) 2 puff INHALE Q4H PRN PRN Reason: Shortness Of Breath Last Admin: 11/21/22 22:34 Dose: 2 puff Documented By: TABBY Apixaban (Apixaban 5 Mg Tablet) 5 mg PO BID [facility] Last Admin: 11/23/22 08:46 Dose: 5 mg Documented By: NICOLLE Aripiprazole (Aripiprazole 10 Mg Tablet) 10 mg PO DAILY [facility] Last Admin: 11/23/22 08:45 Dose: 10 mg Documented By: NICOLLE Atorvastatin Calcium (Atorvastatin Calcium 80 Mg Tablet) 80 mg PO BEDTIME [facility] Last Admin: 11/22/22 21:11 Dose: 80 mg Documented By: JUAN Bisacodyl (Bisacodyl 5 Mg Tablet.) 10 mg PO DAILY PRN PRN Reason: Constipation Digoxin (Digoxin 0.125 Mg Tablet) 0.125 mg PO DAILY [facility] Last Admin: 11/23/22 08:46 Dose: 0.125 mg Documented By: NICOLLE Diltiazem HCl (Diltiazem Hcl Cd 240 Mg Cap.Er.Deg) 240 mg PO DAILY [facility]; Protocol Last Admin: 11/23/22 08:46 Dose: 240 mg Documented By: NICOLLE Doxycycline Monohydrate (Doxycycline Monohydrate 100 Mg Capsule) 100 mg PO Q12H [facility] Stop: 12/22/22 21:01 Last Admin: 11/23/22 08:45 Dose: 100 mg Documented By: NICOLLE Duloxetine HCl (Duloxetine Hcl 60 Mg Capsule.) 60 mg PO BID [facility] Last Admin: 11/23/22 08:46 Dose: 60 mg Documented By: NICOLLE Ferrous Sulfate (Ferrous Sulfate 324 Mg Tablet.) 324 mg PO MoWeFr@0900 [facility] Last Admin: 11/22/22 08:08 Dose: Not Given Documented By: TYLER Non-Admin Reason: Patient Refused Fluticasone Propionate (Fluticasone Propionate Nasal 16 Gm [place]) 1 spray NOSTRIL-B BID [facility] Last Admin: 11/23/22 08:48 Dose: 1 spray Documented By: NICOLLE Gabapentin (Gabapentin 100 Mg Capsule) 200 mg PO QID [facility] Last Admin: 11/23/22 08:45 Dose: 200 mg Documented By: NICOLLE Glucose (Glucose Gel 15 Gm Gel..Gram.) 15 gm PO Q15M PRN; Protocol PRN Reason: per Hypoglycemia Standing Ord. Guaifenesin (Guaifenesin La 600 Mg Tab.Er.12h) 600 mg PO BID [facility] Last Admin: 11/23/22 08:46 Dose: 600 mg Documented By: NICOLLE Guaifenesin/Dextromethorphan (Guaifenesin Dm 100/10/5 Ml 5 Ml Syrup) 5 ml PO Q4H PRN PRN Reason: cough Last Admin: 11/18/22 02:10 Dose: 5 ml Documented By: JERONIMO Hydroxyzine HCl (Hydroxyzine Hcl 25 Mg Tablet) 25 mg PO TID PRN PRN Reason: Anxiety Last Admin: 11/13/22 23:54 Dose: 25 mg Documented By: GIAN Dextrose (D10) 250 mls @ 750 mls/hr IV Q15M PRN; Protocol PRN Reason: per Hypoglycemia Standing Ord. Insulin Human Lispro (Insulin Lispro 100 Unit/Ml 3 Ml Vial) 0 unit SUBCUT QIDACHS [facility]; Protocol Last Admin: 11/23/22 11:34 Dose: 2 unit Documented By: MINDA Lidocaine (Lidocaine 4 % Patch Adh..Patch) 1 patch TRANSDERMA DAILY [facility] Last Admin: 11/23/22 08:47 Dose: Not Given Documented By: NICOLLE Non-Admin Reason: Patient Refused Loperamide HCl (Loperamide Hcl 2 Mg Capsule) 2 mg PO Q4H PRN PRN Reason: Diarrhea Last Admin: 11/13/22 20:57 Dose: 2 mg Documented By: GIAN Lorazepam (Lorazepam 0.5 Mg Tablet) 0.5 mg PO TID PRN PRN Reason: Anxiety Last Admin: 11/23/22 05:31 Dose: 0.5 mg Documented By: JUAN Magnesium Hydroxide (Milk Of Magnesia 30 Ml Oral.Susp) 30 ml PO DAILY PRN PRN Reason: Constipation Melatonin (Melatonin 3 Mg Tablet) 3 mg PO BEDTIME PRN PRN Reason: Insomnia Metformin HCl (Metformin Hcl 1,000 Mg Tablet) 1,000 mg PO DAILY [facility] Last Admin: 11/23/22 08:46 Dose: 1,000 mg Documented By: NICOLLE Metoprolol Tartrate (Metoprolol Tartrate 100 Mg Tablet) 100 mg PO BID [facility]; Protocol Last Admin: 11/23/22 08:46 Dose: 100 mg Documented By: NICOLLE Nitroglycerin (Nitroglycerin 0.4 Mg Tab.Subl) 0.4 mg SUBLINGUAL Q5M PRN PRN Reason: Chest Pain Last Admin: 11/15/22 18:29 Dose: 1 tab Documented By: COTEMA Nystatin (Nystatin Powder 15 Gm Bottle) 1 appl TOPICAL BID [facility]; Protocol Last Admin: 11/23/22 08:47 Dose: 1 appl Documented By: NICOLLE Omeprazole (Omeprazole 20 Mg Capsule.) 20 mg PO DAILY@0630 [facility] Last Admin: 11/23/22 05:31 Dose: 20 mg Documented By: JUAN Ondansetron HCl (Ondansetron Odt 4 Mg Tab.Rapdis) 4 mg TRANSLINGU Q8H PRN PRN Reason: Nausea Oxycodone HCl (Oxycodone Hcl Immed Release 5 Mg Tablet) 5 mg PO Q6H PRN PRN Reason: Pain, Moderate(Pain Scale 4-6) Last Admin: 11/23/22 05:31 Dose: 5 mg Documented By: JUAN Phenytoin Sodium (Phenytoin Sodium Extended 100 Mg Capsule) 200 mg PO DAILY [facility] Last Admin: 11/23/22 08:45 Dose: 200 mg Documented By: NICOLLE Phenytoin Sodium (Phenytoin Sodium Extended 100 Mg Capsule) 400 mg PO BEDTIME [facility] Last Admin: 11/22/22 21:12 Dose: 400 mg Documented By: JUAN Quetiapine Fumarate (Quetiapine Fumarate 200 Mg Tablet) 200 mg PO BEDTIME [facility] Last Admin: 11/22/22 21:11 Dose: 200 mg Documented By: JUAN Quetiapine Fumarate (Quetiapine Fumarate 100 Mg Tablet) 100 mg PO BEDTIME PRN PRN Reason: Insomnia Last Admin: 11/13/22 23:54 Dose: 100 mg Documented By: GIAN Senna (Sennosides 8.6 Mg Tablet) 8.6 mg PO DAILY [facility] Last Admin: 11/23/22 08:46 Dose: 8.6 mg Documented By: NICOLLE Simethicone (Simethicone 80 Mg Tab.Chew) 80 mg PO TID PRN PRN Reason: Indigestion Last Admin: 11/13/22 23:54 Dose: 80 mg Documented By: GIAN Sodium Chloride (0.9 % Sodium Chloride Flush 3 Ml Syringe) 3 ml IVFLUSH QSHIFT [facility] Last Admin: 11/23/22 08:44 Dose: Not Given Documented By: NICOLLE Non-Admin Reason: No Access Torsemide (Torsemide 20 Mg Tablet) 40 mg PO DAILY [facility]; Protocol Last Admin: 11/23/22 08:45 Dose: 40 mg Documented By: HO.[email or web address] Trazodone HCl (Trazodone Hcl 50 Mg Tablet) 50 mg PO BEDTIME PRN PRN Reason: Insomnia Labs 11/21/22 06:00 11/23/22 06:27 Labs: Laboratory Results - last 24 hr 11/22/22 11/22/22 11/22/22 15:09 15:26 20:24 Estim Creat Clear Calc Estimated GFR POC Glucose 156 H 174 H Random Vancomycin 16.1 11/23/22 11/23/22 11/23/22 06:27 07:22 10:59 Estim Creat Clear Calc 151.3 Estimated GFR > 60 POC Glucose 151 H 185 H Random Vancomycin Assessment and Plan (1) Atelectasis of right lung: Status: Acute (2) Osteomyelitis of foot: Status: Acute Plan 62M PMH paroxysmal afib, severe depression, morbid obesity, DM, chronic diastolic chf, gerd, moderate persistent asthma, epilepsy, HTN, history of CVA, presented with chest pain. Dyspnea 2/2 RLL Atelactasis improved chest PT mucinex, incentive spirometry To repeat CXR today CPAP at night, advised to wear with naps as well wean O2 down as tolerated Physical deconditioning PT rec SNF Hypotension resolved received a unit of blood and IVF Chest pain Cardio appreciated, unlikely cardiac and get it all the time, PRN nitro on Eliquis and statin and beta-deysi troponin negative acute on chronic diastolic CHF and probable deconditioning improved was on both lasix and torsemide PO Keep on Torsemide only for now acute on chronic anemia iron deficiency, inflammatory transfused 2 units prbc with good response follow H&H Morbid obesity Weight loss recommended Paroxysmal atrial fibrillation with rapid ventricular response metoprolol 100mg bid, Eliquis diltiazem increased to 240mg daily po dig 0.125 daily monitor on tele Diabetes Insulin, monitor point of care GERD PPI Moderate persistent asthma No acute exacerbation, bronchodilators as needed Mood disorder with suicidal ideation Continue Cymbalta, Abilify ?osteomyelitis of right distal 1st phalanx unclear chronicity Finished IV vancomycin until November 21, 2022 DC PICC start p.o. doxy DVT prophylaxis on Eliquis Full code reason for continued hospitalization: discharge planning to SNF Time Spent With Patient Time: Total time managing care of this patient today ____ minutes. Quality Stroke Does the patient have a stroke diagnosis?: No VTE Prior VTE?: No VTE Risk Level:: Medical - moderate - high VTE Device Contraindication: Treatment Not Indicated VTE Drug Contraindication: N/A - Med Ordered
[2022-11-23 15:13] LABS: Glucose, Whole Blood 167 mg/dL (60-115)
[2022-11-23 19:57] LABS: Glucose, Whole Blood 129 mg/dL (60-115)
[2022-11-23] MEDS: QUEtiapine Fumarate 200 MG TABLET PO (23:27)
[2022-11-23] MEDS: Atorvastatin Calcium 80 MG TABLET PO (23:27)
[2022-11-23] MEDS: Phenytoin Sodium Extended 100 MG CAPSULE 400 MG PO (23:28)
[2022-11-24] VITALS (9 sets, daily range): BP systolic 99–158; BP diastolic 53–76; PULSE 78–96; RESP 18–20; TEMP 35.9–37; O2SAT 90–99
[2022-11-24] MEDS: LORazepam 0.5 MG TABLET PO ×3 (01:29→21:02)
[2022-11-24] MEDS: 0.9 % Sodium Chloride Flush 3 ML SYRINGE IVFLUSH ×4 (01:33→20:53)
[2022-11-24 05:42] LABS: Hematocrit 29.4 % (42.0-52.0); Hemoglobin 8.3 g/dl (14.0-18.0); Mean Corpuscular HGB Conc 28.2 g/dl (31.0-36.0); Mean Corpuscular Hemoglobin 22.4 pg (27.0-33.0); Mean Corpuscular Volume 79.5 fL (80.0-98.0); Mean Platelet Volume 9.7 fL (9.4-12.4); Platelet Count 324 X10*3/uL (160-400); Red Cell Distribution Width 21.1 % (11.0-16.0); White Blood Count 11.7 X10*3/uL (4.8-10.8)
[2022-11-24 06:04] LABS: Anion Gap 12 (12-20); Blood Urea Nitrogen 10 mg/dL (9-16); Calcium 9.2 mg/dL (8.4-10.2); Chloride 90 mmol/L (96-108); Creatinine Clr Calc Pharmacy 159.2; Estimated Glomerular Filt Rate > 60; Glucose Random 161 mg/dL (60-115); Sodium 139 mmol/L (135-145)
[2022-11-24 06:05] LABS: Carbon Dioxide 40 mmol/L (22-29)
[2022-11-24] MEDS: Omeprazole 20 MG CAPSULE.DR PO (06:21)
[2022-11-24 07:13] LABS: Glucose, Whole Blood 154 mg/dL (60-115)
[2022-11-24] MEDS: Insulin Lispro 100 UNIT/ML 3 ML VIAL SUBCUT ×4 (09:12→20:53)
[2022-11-24] MEDS: DULoxetine HCl 60 MG CAPSULE.DR PO ×2 (09:13→20:56)
[2022-11-24] MEDS: Digoxin 0.125 MG TABLET PO (09:13)
[2022-11-24] MEDS: Ferrous Sulfate 324 MG TABLET.DR PO (09:13)
[2022-11-24] MEDS: Apixaban 5 MG TABLET PO ×2 (09:13→20:56)
[2022-11-24] MEDS: ARIPiprazole 10 MG TABLET PO (09:13)
[2022-11-24] MEDS: dilTIAZem HCL CD 240 MG CAP.ER.DEG PO (09:13)
[2022-11-24] MEDS: Gabapentin 100 MG CAPSULE 200 MG PO ×4 (09:13→20:55)
[2022-11-24] MEDS: Phenytoin Sodium Extended 100 MG CAPSULE 200 MG PO (09:13)
[2022-11-24] MEDS: Sennosides 8.6 MG TABLET PO (09:14)
[2022-11-24] MEDS: Doxycycline Monohydrate 100 MG CAPSULE PO ×2 (09:14→20:56)
[2022-11-24] MEDS: metFORMIN HCl 1,000 MG TABLET 1000 MG PO (09:14)
[2022-11-24] MEDS: guaiFENesin LA 600 MG TAB.ER.12H PO ×2 (09:14→20:56)
[2022-11-24] MEDS: Torsemide 20 MG TABLET 40 MG PO (09:14)
[2022-11-24] MEDS: Metoprolol Tartrate 100 MG TABLET PO ×2 (09:14→20:56)
[2022-11-24] MEDS: Potassium Chloride Packet 20 MEQ PACKET 40 MEQ PO (09:14)
[2022-11-24] MEDS: oxyCODONE HCl Immed Release 5 MG TABLET PO ×2 (09:14→17:10)
[2022-11-24] MEDS: Fluticasone Propionate Nasal 16 GM SPRAY 1 SPRAY NOSTRIL-B (09:15)
[2022-11-24] MEDS: Nystatin Powder 15 GM BOTTLE 1 APPL TOPICAL (09:15)
[2022-11-24 11:12] LABS: Glucose, Whole Blood 194 mg/dL (60-115)
--- NOTE | 2022-11-24 13:13 | HO.PM.IMPN ---
Subjective Subjective Date of Service: 11/24/22 Interval History: Seen and evaluated alert and interactive Feels better overall Denies any fever, pain or lightheadedness no other overnight events Review of Systems Review of Systems: Yes all other systems are reviewed and are negative Physical Exam Vital Signs: Vital Signs: Last Vital Signs Temp 96.7 F L 11/24/22 11:13 Pulse 80 11/24/22 11:13 Resp 20 11/24/22 11:13 BP 120/76 11/24/22 11:13 Pulse Ox 96 11/24/22 11:13 O2 Del Method Nasal Cannula 11/24/22 11:13 O2 Flow Rate 3 11/24/22 11:13 BMI result Body Mass Index 45.1 Const: Other: Constitutional : Awake with stimulation, interactive, not in distress Neck : Normal inspection, Supple Cardiovascular : RRR, no JVP, no lower extremity edema Respiratory : fair bilateral air entry decreased on the right base, less crackles, expiratory wheezes , on 3-4L O2 Gastrointestinal: soft, lax, Normal bowel sounds, Non tender Skin : Warm, Dry Neurological : Alert & oriented x3, No focal deficit Objective Data Active Medications Acetaminophen (Acetaminophen 325 Mg Tablet) 650 mg PO Q6H PRN PRN Reason: Headache/Pain Mild Scale (1-3) Last Admin: 11/16/22 03:39 Dose: 650 mg Documented By: GINI Al Hydroxide/Mg Hydroxide (Magnesium Hydrox/Alum Hydrox 30 Ml Oral.Susp) 30 ml PO Q6H PRN PRN Reason: Heartburn/Nausea Albuterol Sulfate (Albuterol Sulfate 90 Mcg 8 Gm Inhaler) 2 puff INHALE Q4H PRN PRN Reason: Shortness Of Breath Last Admin: 11/21/22 22:34 Dose: 2 puff Documented By: TABBY Apixaban (Apixaban 5 Mg Tablet) 5 mg PO BID [facility] Last Admin: 11/24/22 09:13 Dose: 5 mg Documented By: NICOLLE Aripiprazole (Aripiprazole 10 Mg Tablet) 10 mg PO DAILY [facility] Last Admin: 11/24/22 09:13 Dose: 10 mg Documented By: NICOLLE Atorvastatin Calcium (Atorvastatin Calcium 80 Mg Tablet) 80 mg PO BEDTIME [facility] Last Admin: 11/23/22 23:27 Dose: 80 mg Documented By: HO.KUDRYAD Bisacodyl (Bisacodyl 5 Mg Tablet.) 10 mg PO DAILY PRN PRN Reason: Constipation Digoxin (Digoxin 0.125 Mg Tablet) 0.125 mg PO DAILY [facility] Last Admin: 11/24/22 09:13 Dose: 0.125 mg Documented By: NICOLLE Diltiazem HCl (Diltiazem Hcl Cd 240 Mg Cap.Er.Deg) 240 mg PO DAILY [facility]; Protocol Last Admin: 11/24/22 09:13 Dose: 240 mg Documented By: NICOLLE Doxycycline Monohydrate (Doxycycline Monohydrate 100 Mg Capsule) 100 mg PO Q12H [facility] Stop: 12/22/22 21:01 Last Admin: 11/24/22 09:14 Dose: 100 mg Documented By: NICOLLE Duloxetine HCl (Duloxetine Hcl 60 Mg Capsule.) 60 mg PO BID [facility] Last Admin: 11/24/22 09:13 Dose: 60 mg Documented By: NICOLLE Ferrous Sulfate (Ferrous Sulfate 324 Mg Tablet.) 324 mg PO MoWeFr@0900 [facility] Last Admin: 11/24/22 09:13 Dose: 324 mg Documented By: NICOLLE Fluticasone Propionate (Fluticasone Propionate Nasal 16 Gm [place]) 1 spray NOSTRIL-B BID [facility] Last Admin: 11/24/22 09:15 Dose: 1 spray Documented By: NICOLLE Gabapentin (Gabapentin 100 Mg Capsule) 200 mg PO QID [facility] Last Admin: 11/24/22 12:37 Dose: 200 mg Documented By: NICOLLE Glucose (Glucose Gel 15 Gm Gel..Gram.) 15 gm PO Q15M PRN; Protocol PRN Reason: per Hypoglycemia Standing Ord. Guaifenesin (Guaifenesin La 600 Mg Tab.Er.12h) 600 mg PO BID [facility] Last Admin: 11/24/22 09:14 Dose: 600 mg Documented By: NICOLLE Guaifenesin/Dextromethorphan (Guaifenesin Dm 100/10/5 Ml 5 Ml Syrup) 5 ml PO Q4H PRN PRN Reason: cough Last Admin: 11/18/22 02:10 Dose: 5 ml Documented By: JERONIMO Hydroxyzine HCl (Hydroxyzine Hcl 25 Mg Tablet) 25 mg PO TID PRN PRN Reason: Anxiety Last Admin: 11/13/22 23:54 Dose: 25 mg Documented By: IGAN Dextrose (D10) 250 mls @ 750 mls/hr IV Q15M PRN; Protocol PRN Reason: per Hypoglycemia Standing Ord. Insulin Human Lispro (Insulin Lispro 100 Unit/Ml 3 Ml Vial) 0 unit SUBCUT QIDACHS [facility]; Protocol Last Admin: 11/24/22 12:38 Dose: 2 unit Documented By: NICOLLE Lidocaine (Lidocaine 4 % Patch Adh..Patch) 1 patch TRANSDERMA DAILY [facility] Last Admin: 11/24/22 09:16 Dose: Not Given Documented By: NICOLLE Non-Admin Reason: Patient Refused Loperamide HCl (Loperamide Hcl 2 Mg Capsule) 2 mg PO Q4H PRN PRN Reason: Diarrhea Last Admin: 11/13/22 20:57 Dose: 2 mg Documented By: GIAN Lorazepam (Lorazepam 0.5 Mg Tablet) 0.5 mg PO TID PRN PRN Reason: Anxiety Last Admin: 11/24/22 12:41 Dose: 0.5 mg Documented By: NICOLLE Magnesium Hydroxide (Milk Of Magnesia 30 Ml Oral.Susp) 30 ml PO DAILY PRN PRN Reason: Constipation Melatonin (Melatonin 3 Mg Tablet) 3 mg PO BEDTIME PRN PRN Reason: Insomnia Metformin HCl (Metformin Hcl 1,000 Mg Tablet) 1,000 mg PO DAILY [facility] Last Admin: 11/24/22 09:14 Dose: 1,000 mg Documented By: NICOLLE Metoprolol Tartrate (Metoprolol Tartrate 100 Mg Tablet) 100 mg PO BID [facility]; Protocol Last Admin: 11/24/22 09:14 Dose: 100 mg Documented By: NICOLLE Nitroglycerin (Nitroglycerin 0.4 Mg Tab.Subl) 0.4 mg SUBLINGUAL Q5M PRN PRN Reason: Chest Pain Last Admin: 11/15/22 18:29 Dose: 1 tab Documented By: COTEMA Nystatin (Nystatin Powder 15 Gm Bottle) 1 appl TOPICAL BID [facility]; Protocol Last Admin: 11/24/22 09:15 Dose: 1 appl Documented By: NICOLLE Omeprazole (Omeprazole 20 Mg Capsule.Dr) 20 mg PO DAILY@0630 [facility] Last Admin: 11/24/22 06:21 Dose: 20 mg Documented By: JERONIMO Ondansetron HCl (Ondansetron Odt 4 Mg Tab.Rapdis) 4 mg TRANSLINGU Q8H PRN PRN Reason: Nausea Oxycodone HCl (Oxycodone Hcl Immed Release 5 Mg Tablet) 5 mg PO Q6H PRN PRN Reason: Pain, Moderate(Pain Scale 4-6) Last Admin: 11/24/22 09:14 Dose: 5 mg Documented By: NICOLLE Phenytoin Sodium (Phenytoin Sodium Extended 100 Mg Capsule) 200 mg PO DAILY [facility] Last Admin: 11/24/22 09:13 Dose: 200 mg Documented By: NICOLLE Phenytoin Sodium (Phenytoin Sodium Extended 100 Mg Capsule) 400 mg PO BEDTIME [facility] Last Admin: 11/23/22 23:28 Dose: 400 mg Documented By: JERONIMO Quetiapine Fumarate (Quetiapine Fumarate 200 Mg Tablet) 200 mg PO BEDTIME [facility] Last Admin: 11/23/22 23:27 Dose: 200 mg Documented By: JERONIMO Quetiapine Fumarate (Quetiapine Fumarate 100 Mg Tablet) 100 mg PO BEDTIME PRN PRN Reason: Insomnia Last Admin: 11/13/22 23:54 Dose: 100 mg Documented By: GIAN Senna (Sennosides 8.6 Mg Tablet) 8.6 mg PO DAILY [facility] Last Admin: 11/24/22 09:14 Dose: 8.6 mg Documented By: NICOLLE Simethicone (Simethicone 80 Mg Tab.Chew) 80 mg PO TID PRN PRN Reason: Indigestion Last Admin: 11/13/22 23:54 Dose: 80 mg Documented By: GIAN Sodium Chloride (0.9 % Sodium Chloride Flush 3 Ml Syringe) 3 ml IVFLUSH QSHIFT [facility] Last Admin: 11/24/22 09:15 Dose: 3 ml Documented By: NICOLLE Torsemide (Torsemide 20 Mg Tablet) 40 mg PO DAILY [facility]; Protocol Last Admin: 11/24/22 09:14 Dose: 40 mg Documented By: NICOLLE Trazodone HCl (Trazodone Hcl 50 Mg Tablet) 50 mg PO BEDTIME PRN PRN Reason: Insomnia Labs 11/24/22 05:25 11/24/22 05:25 Labs: Laboratory Results - last 24 hr 11/23/22 11/23/22 11/24/22 15:10 19:48 05:25 MCV 79.5 L MCH 22.4 L MCHC 28.2 L RDW 21.1 H Plt Count 324 MPV 9.7 Absolute Nucleated RBC 0.000 Nucleated RBC % (auto) 0.0 Anion Gap Estim Creat Clear Calc Estimated GFR POC Glucose 167 H 129 H Random Glucose Calcium 11/24/22 11/24/22 11/24/22 05:25 07:09 11:02 MCV MCH MCHC RDW Plt Count MPV Absolute Nucleated RBC Nucleated RBC % (auto) Anion Gap 12 Estim Creat Clear Calc 159.2 Estimated GFR > 60 POC Glucose 154 H 194 H Random Glucose 161 H Calcium 9.2 Assessment and Plan (1) Atelectasis of right lung: Status: Acute (2) Physical deconditioning: Status: Acute Plan 62M PMH paroxysmal afib, severe depression, morbid obesity, DM, chronic diastolic chf, gerd, moderate persistent asthma, epilepsy, HTN, history of CVA, presented with chest pain. Dyspnea 2/2 RLL Atelactasis improved CXR showing improvement chest PT , mucinex, incentive spirometry CPAP at night, advised to wear with naps as well wean O2 down as tolerated Physical deconditioning PT rec SNF Hypotension resolved received a unit of blood and IVF Chest pain Cardio appreciated, unlikely cardiac and get it all the time, PRN nitro on Eliquis and statin and beta-deysi troponin negative acute on chronic diastolic CHF and probable deconditioning improved was on both lasix and torsemide PO Keep on Torsemide only for now acute on chronic anemia iron deficiency, inflammatory transfused 2 units prbc with good response follow H&H Morbid obesity Weight loss recommended Paroxysmal atrial fibrillation with rapid ventricular response metoprolol 100mg bid, Eliquis diltiazem increased to 240mg daily po dig 0.125 daily monitor on tele Diabetes Insulin, monitor point of care GERD PPI Moderate persistent asthma No acute exacerbation, bronchodilators as needed Mood disorder with suicidal ideation Continue Cymbalta, Abilify ?osteomyelitis of right distal 1st phalanx unclear chronicity Finished IV vancomycin until November 21, 2022 DC PICC start p.o. doxy DVT prophylaxis on Eliquis Full code reason for continued hospitalization: discharge planning to SNF Time Spent With Patient Time: Total time managing care of this patient today ____ minutes. Quality Stroke Does the patient have a stroke diagnosis?: No VTE Prior VTE?: No VTE Risk Level:: Medical - moderate - high VTE Device Contraindication: Treatment Not Indicated VTE Drug Contraindication: N/A - Med Ordered
--- NOTE | 2022-11-24 15:42 | MHC.CM.PN ---
EMR REVIEWED. REFERRALS UPDATED AND [facility] HAS OFFERED A BED PENDING INSURANCE AUTH FOR 11/25. THEY HAVE STARTED THE PROCESS. MD MADE AWARE. CM WILL CONTINUE TO FOLLOW
[2022-11-24 16:28] LABS: Glucose, Whole Blood 155 mg/dL (60-115)
[2022-11-24 20:18] LABS: Glucose, Whole Blood 153 mg/dL (60-115)
[2022-11-24] MEDS: Atorvastatin Calcium 80 MG TABLET PO (20:55)
[2022-11-24] MEDS: QUEtiapine Fumarate 200 MG TABLET PO (20:56)
[2022-11-24] MEDS: Phenytoin Sodium Extended 100 MG CAPSULE 400 MG PO (20:56)
[2022-11-25 03:34] VITALS: BP 121/71; PULSE 96; RESP 18; TEMP 36.1; O2SAT 91
[2022-11-25] MEDS: oxyCODONE HCl Immed Release 5 MG TABLET PO ×3 (05:14→21:45)
[2022-11-25] MEDS: Omeprazole 20 MG CAPSULE.DR PO (05:14)
[2022-11-25] MEDS: hydrOXYzine HCL 25 MG TABLET PO (05:20)
[2022-11-25 06:37] LABS: Creatinine Clr Calc Pharmacy 149.5; Estimated Glomerular Filt Rate > 60
[2022-11-25 07:12] VITALS: BP 122/61; PULSE 85; RESP 20; TEMP 36.3; O2SAT 95
[2022-11-25 07:26] LABS: Glucose, Whole Blood 159 mg/dL (60-115)
[2022-11-25] MEDS: Phenytoin Sodium Extended 100 MG CAPSULE 200 MG PO (09:16)
[2022-11-25] MEDS: DULoxetine HCl 60 MG CAPSULE.DR PO ×2 (09:16→21:41)
[2022-11-25] MEDS: Gabapentin 100 MG CAPSULE 200 MG PO ×4 (09:16→21:41)
[2022-11-25] MEDS: Apixaban 5 MG TABLET PO ×2 (09:16→21:42)
[2022-11-25] MEDS: Doxycycline Monohydrate 100 MG CAPSULE PO ×2 (09:17→21:42)
[2022-11-25] MEDS: Metoprolol Tartrate 100 MG TABLET PO ×2 (09:17→21:42)
[2022-11-25] MEDS: ARIPiprazole 10 MG TABLET PO (09:17)
[2022-11-25] MEDS: metFORMIN HCl 1,000 MG TABLET 1000 MG PO (09:17)
[2022-11-25] MEDS: dilTIAZem HCL CD 240 MG CAP.ER.DEG PO (09:17)
[2022-11-25] MEDS: Digoxin 0.125 MG TABLET PO (09:17)
[2022-11-25] MEDS: guaiFENesin LA 600 MG TAB.ER.12H PO ×2 (09:17→21:41)
[2022-11-25] MEDS: 0.9 % Sodium Chloride Flush 3 ML SYRINGE IVFLUSH ×2 (09:18→16:32)
[2022-11-25] MEDS: Insulin Lispro 100 UNIT/ML 3 ML VIAL SUBCUT ×2 (09:18→12:57)
[2022-11-25] MEDS: Nystatin Powder 15 GM BOTTLE 1 APPL TOPICAL (09:19)
[2022-11-25] MEDS: Torsemide 20 MG TABLET 40 MG PO (09:28)
[2022-11-25] MEDS: LORazepam 0.5 MG TABLET PO ×2 (09:29→16:29)
--- NOTE | 2022-11-25 10:35 | MHC.CM.PN ---
EMR reviewed and per MD rounds, pt medically cleared for discharge to SNF. [facility] and [facility] willing to offer pt a bed and has submitted for insurance auth. This CM has inquired with liaison Aretha from [facility] for updates, currently awaiting any new information. Transport will be via [facility]/[place]. CM will continue to follow for D/C.
[2022-11-25 11:08] LABS: Glucose, Whole Blood 168 mg/dL (60-115)
[2022-11-25 11:09] VITALS: BP 139/64; PULSE 74; RESP 16; TEMP 36.6; O2SAT 97
--- NOTE | 2022-11-25 11:49 | PM.DS ---
DS: Providers Provider Date of Service: 11/25/22 Date of admission: 11/12/22 16:13 Primary care physician: Brown Parada MD Consults: 11/12/22 16:15 Consult to Cardiology Routine Consulting Provider: [facility] Cardiovascular Services Reason for consultation: chf, chest pain Has provider been notified: Yes 11/21/22 07:39 Consult to Care Team Routine Comment: Reason for consultation: Medically clear, for psych placement if needed. DS: Diagnosis Discharge Diagnosis (1) Atelectasis of right lung: Status: Acute (2) Physical deconditioning: Status: Acute DS: Summary Hospital Course Hospital Course: The patient had prolonged hospital stay. for full details please return to EMR. Admission note HPI 62M PMH paroxysmal afib, severe depression, chronic pain on opiates, morbid obesity, DM, chronic diastolic chf, gerd, moderate persistent asthma, epilepsy, HTN, history of CVA, presented with chest pain.? Patient was in inpatient [facility] for suicidal ideation.? Rapid response was called for complaints of chest pressure and shortness of breath.? Patient states that chest pain is 10 out 10, midsternal, pressure, radiating to left arm, similar to previous and since as though more extreme.? Associated with shortness of breath, denies coronary history.? Was given nitro sublingual with slight decrease in pain to 8/10.? EKG showed AFib with RVR, right bundle anthony block, no obvious acute ischemic changes. Hospital course - Evaluated for Chest pain by cardiology team who believed it is unlikely cardiac with negative trop I and EKG changes and advised to continue his home medications. he did not require any NTG and did not have the chest pain again during the hospital stay. on Eliquis and statin and beta-deysi. - Treated for acute on chronic diastolic CHF and probable deconditioning with IV lasix with good response. restarted back on Torsemide home dose. weaned down O2 to 3-4L. continue to wean down as tolerated. - Developed Dyspnea 2/2 RLL Atelactasis. improved by chest PT , mucinex, incentive spirometry. CPAP at night, advised to wear with naps as well. - Physical deconditioning, evaluated by PT who recommended rehab placement. - acute on chronic anemia likely 2/2 iron deficiency, inflammatory. transfused 2 units prbc with good response and remained stable. - Morbid obesity, Weight loss recommended - Paroxysmal atrial fibrillation with rapid ventricular response, controlled with increased the dosage of metoprolol to 100mg bid and diltiazem increased to 240mg daily. with addition of po dig 0.125 daily. Eliquis as blood thinner. to follow with cardiology as outpatient. - Mood disorder with suicidal ideation. Medications adjusted as noted in med list. evaluated by care team who cleared him to discharge as no need for inpatient psych. can be followed as outpatient. - Was on active treatment for osteomyelitis of right distal 1st phalanx. Finished IV vancomycin until November 21, 2022. PICC line was removed. He will need PO Doxycycline for 1 more month. Discharge plan: Start physical therapy Use CPAP nighttime and during naps Continue Doxycycline as prescribed Increase Metoprolol and Cardizem as prescribed To follow up with cardiology as outpatient The patient will likely need less than 30 days in SNF facility. Time Spent with Patient Time attestation: Total time managing care of this patient today ____ minutes. Discharge coordination time: Greater than 30 minutes Quality: Safe Use of Opioids Does Pt have an Active Cancer Diagnosis on the Problem List?: No Quality: Stroke Does the patient have a stroke diagnosis?: No Physical Exam Vital Signs: Vital Signs: Last Vital Signs Temp 97.8 F 11/25/22 11:09 Pulse 74 11/25/22 11:09 Resp 16 11/25/22 11:09 BP 139/64 11/25/22 11:09 Pulse Ox 97 11/25/22 11:09 O2 Del Method Nasal Cannula 11/25/22 11:09 O2 Flow Rate 3 11/25/22 11:09 BMI result Body Mass Index 45.1 Const: Other: Constitutional : Awake with stimulation, interactive, not in distress Neck : Normal inspection, Supple Cardiovascular : RRR, no JVP, no lower extremity edema Respiratory : fair bilateral air improved on the right base, no crackles, no wheezes , on 3-4L O2 Gastrointestinal: soft, lax, Normal bowel sounds, Non tender Skin : Warm, Dry Neurological : Alert & oriented x3, No focal deficit DS: Data Data Completed and Pending Completed studies during hospitalization [Text1]: Procedures Insertion of Infusion Device into Right Basilic Vein, Percutaneous Approach (07/30/22) Insertion of Infusion Device into Superior Vena Cava, Percutaneous Approach (10/04/22) Ultrasonography of Superior Vena Cava, Guidance (10/04/22) Labs on day of discharge: Laboratory Results - last 24 hr 11/24/22 11/24/22 11/25/22 16:24 20:12 06:03 Creatinine 0.82 Estim Creat Clear Calc 149.5 Estimated GFR > 60 POC Glucose 155 H 153 H 11/25/22 11/25/22 07:10 11:00 Creatinine Estim Creat Clear Calc Estimated GFR POC Glucose 159 H 168 H Imaging Chest x-ray: Radiologist's impression: ITS Impressions Chest X-Ray 11/12/22 16:38 IMPRESSION: No evidence for acute disease in the chest. Chest X-Ray 11/19/22 08:32 IMPRESSION: Increasing volume loss to the right hemithorax, atelectasis/consolidation of the right lung and small right pleural effusion. Follow-up chest x-ray following respiratory treatment recommended. Findings will be communicated by the [facility] work flow exchange architect. Chest X-Ray 11/20/22 08:21 IMPRESSION: 1. Hypoexpanded right lung with elevated right hemidiaphragm and right lower lobe atelectasis. 2. The left lung is clear. Chest X-Ray 11/23/22 14:28 IMPRESSION: Partial interval improvement in right lower lobe opacity. Discharge Plan Discharge Anticipated Discharge Date/Time: 11/25/22 10:59 Patient Disposition: Xfer SNF Discharge Diagnosis: Atrial fibrillation with rapid response physical deconditioning Heart failure exacerbation Acute on chronic anemia Referrals: Brown Parada MD [Primary Care Provider] - 1 Week Discharge Medications: New metoprolol tartrate 100 mg Tablet 100 mg PO BID Qty: 30 0RF Protocol: Hold for SBP/HR < HOLD for SBP < : 90 HOLD for HR < : 60 diltiazem HCl 240 mg Capsule,Extended Release 24hr 240 mg PO DAILY Qty: 30 0RF Protocol: Hold for SBP/HR < HOLD for SBP < : 90 HOLD for HR < : 60 quetiapine 200 mg Tablet 200 mg PO BEDTIME Qty: 30 0RF lorazepam 0.5 mg Tablet 0.5 mg PO TID PRN (Reason: Anxiety) Qty: 30 0RF doxycycline monohydrate 100 mg Capsule 100 mg PO Q12H 27 Days Qty: 54 0RF digoxin 125 mcg (0.125 mg) Tablet 0.125 mg PO DAILY Qty: 30 0RF gabapentin 100 mg Capsule 200 mg PO QID Qty: 120 0RF oxycodone 5 mg Tablet 5 mg PO Q6H PRN (Reason: Pain, Moderate(Pain Scale 4-6)) Qty: 30 0RF Rx Instructions: Partial Fill upon patient request. aripiprazole 10 mg Tablet 10 mg PO DAILY Qty: 30 0RF guaifenesin [Mucinex] 600 mg Tablet Extended Release 12hr 600 mg PO BID Qty: 20 0RF Continued trazodone 50 mg tablet 1 tab PO BEDTIME phenytoin sodium extended 100 mg capsule 200 mg PO DAILY pantoprazole 40 mg tablet,delayed release (DR/EC) 1 tab PO DAILY@0630 metformin 1,000 mg tablet 1 tab PO DAILY hydroxyzine HCl 25 mg tablet 1 tab PO TID PRN (Reason: Anxiety) oxycodone 5 mg tablet 1 tab PO TID PRN (Reason: Pain) Eliquis 5 mg tablet 1 tab PO BID atorvastatin 80 mg tablet 1 tab PO DAILY torsemide 20 mg tablet 1 tab PO DAILY phenytoin sodium extended 100 mg capsule 400 mg PO BEDTIME quetiapine 100 mg tablet 1 tab PO BEDTIME PRN (Reason: Insomnia) acetaminophen 500 mg Tablet 1,000 mg PO BID PRN (Reason: Pain) albuterol sulfate [ProAir HFA] 90 mcg/actuation Hfa Aerosol Inhaler 2 puff INHALATION Q4-6H PRN (Reason: Shortness Of Breath) fluticasone propionate 50 mcg/actuation [place],Suspension 1 spray INTRANASAL BID Rx Instructions: administer into each nostril insulin lispro 100 unit/mL insulin pen 2 - 10 unit subcut TIDAC duloxetine 30 mg capsule,delayed release(DR/EC) 60 mg PO BID ferrous sulfate 324 mg (65 mg iron) Tablet,Delayed Release (Dr/Ec) 324 mg PO DIRECTED Rx Instructions: take 1 tab every Tuesday, Tuesday, Tuesday sennosides [senna] 8.6 mg Tablet 8.6 mg PO DAILY melatonin 3 mg Tablet 3 mg PO BEDTIME PRN (Reason: Insomnia) lidocaine 5 % Adhesive Patch,Medicated 1 patch TOPICAL DAILY Rx Instructions: leave on most painful area for up to 12 hrs nitroglycerin 0.4 mg Tablet, Sublingual 0.4 mg SUBLINGUAL Q5M PRN (Reason: Chest Pain) Rx Instructions: do not exceed 3 doses per episode nystatin 100,000 unit/gram Powder 1 appl TOPICAL BID ondansetron 4 mg Tablet,Disintegrating 4 mg PO Q6H PRN (Reason: Nausea) calamine Lotion See Rx Instructions .ROUTE .COMPLEX Rx Instructions: Apply to affected area topically, 2 times daily simethicone 80 mg Tablet 80 mg PO TID PRN (Reason: Indigestion) Discontinued lorazepam 2 mg tablet 1 tab PO TID PRN (Reason: Anxiety) gabapentin 400 mg capsule 1 cap PO 5XD quetiapine 200 mg tablet 1 tab PO BID diltiazem HCl 120 mg Capsule,Extended Release 24 Hr 120 mg PO DAILY@11 aripiprazole 5 mg Tablet 7.5 mg PO DAILY metoprolol succinate 25 mg tablet extended release 24 hr 75 mg PO DAILY Protocol: Hold for SBP/HR < HOLD for SBP < : 90 HOLD for HR < : 60 Discharge Orders: Discharge Order (Routine); Ordered 11/25/22 Ordered By: Giselle Butterfield Diet: Diabetic diet Activity on Discharge: As tolerated Stand Alone Forms: Patient Portal Discharge page Care Plan Goals: Read below Health Concerns: Read below Plan of Treatment: Read below Assessment: You were admitted to the hospital for treatment of rapid heart rate and evidence of heart failure responded well to treatment with water pills and rate control medications. We adjusted your pysch medications based on psychiatry recommendations with good response. You have finished the IV antibiotics treatment. To continue oral treatment. Start physical therapy Use CPAP nighttime and during naps Continue Doxycycline as prescribed Increase Metoprolol and Cardizem as prescribed To follow up with cardiology as outpatient
--- NOTE | 2022-11-25 15:22 | P.PNIM_ITS ---
Subjective Subjective Date of Service: 11/25/22 Interval History: Seen and evaluated alert and interactive Feels better overall no other overnight events Review of Systems Review of Systems: Yes all other systems are reviewed and are negative Physical Exam Vital Signs: Vital Signs: Last Vital Signs Temp 97.8 F 11/25/22 11:09 Pulse 74 11/25/22 11:09 Resp 16 11/25/22 11:09 BP 139/64 11/25/22 11:09 Pulse Ox 97 11/25/22 11:09 O2 Del Method Nasal Cannula 11/25/22 11:09 O2 Flow Rate 3 11/25/22 11:09 BMI result Body Mass Index 45.1 Const: Other: Constitutional : Awake with stimulation, interactive, not in distress Neck : Normal inspection, Supple Cardiovascular : RRR, no JVP, no lower extremity edema Respiratory : fair bilateral air improved on the right base, no crackles, no wheezes , on 3-4L O2 Gastrointestinal: soft, lax, Normal bowel sounds, Non tender Skin : Warm, Dry Neurological : Alert & oriented x3, No focal deficit Objective Data Active Medications Acetaminophen (Acetaminophen 325 Mg Tablet) 650 mg PO Q6H PRN PRN Reason: Headache/Pain Mild Scale (1-3) Last Admin: 11/16/22 03:39 Dose: 650 mg Documented By: GINI Al Hydroxide/Mg Hydroxide (Magnesium Hydrox/Alum Hydrox 30 Ml Oral.Susp) 30 ml PO Q6H PRN PRN Reason: Heartburn/Nausea Albuterol Sulfate (Albuterol Sulfate 90 Mcg 8 Gm Inhaler) 2 puff INHALE Q4H PRN PRN Reason: Shortness Of Breath Last Admin: 11/21/22 22:34 Dose: 2 puff Documented By: TABBY Apixaban (Apixaban 5 Mg Tablet) 5 mg PO BID [facility] Last Admin: 11/25/22 09:16 Dose: 5 mg Documented By: DANNY Aripiprazole (Aripiprazole 10 Mg Tablet) 10 mg PO DAILY [facility] Last Admin: 11/25/22 09:17 Dose: 10 mg Documented By: DANNY Atorvastatin Calcium (Atorvastatin Calcium 80 Mg Tablet) 80 mg PO BEDTIME [facility] Last Admin: 11/24/22 20:55 Dose: 80 mg Documented By: TYSHAWN Bisacodyl (Bisacodyl 5 Mg Tablet.) 10 mg PO DAILY PRN PRN Reason: Constipation Digoxin (Digoxin 0.125 Mg Tablet) 0.125 mg PO DAILY [facility] Last Admin: 11/25/22 09:17 Dose: 0.125 mg Documented By: DANNY Diltiazem HCl (Diltiazem Hcl Cd 240 Mg Cap.Er.Deg) 240 mg PO DAILY [facility]; Protocol Last Admin: 11/25/22 09:17 Dose: 240 mg Documented By: DANNY Doxycycline Monohydrate (Doxycycline Monohydrate 100 Mg Capsule) 100 mg PO Q12H [facility] Stop: 12/22/22 21:01 Last Admin: 11/25/22 09:17 Dose: 100 mg Documented By: DANNY Duloxetine HCl (Duloxetine Hcl 60 Mg Capsule.) 60 mg PO BID [facility] Last Admin: 11/25/22 09:16 Dose: 60 mg Documented By: DANNY Ferrous Sulfate (Ferrous Sulfate 324 Mg Tablet.) 324 mg PO MoWeFr@0900 [facility] Last Admin: 11/24/22 09:13 Dose: 324 mg Documented By: NICOLLE Fluticasone Propionate (Fluticasone Propionate Nasal 16 Gm [place]) 1 spray NOSTRIL-B BID [facility] Last Admin: 11/25/22 09:18 Dose: Not Given Documented By: DANNY Non-Admin Reason: Patient Refused Gabapentin (Gabapentin 100 Mg Capsule) 200 mg PO QID [facility] Last Admin: 11/25/22 12:56 Dose: 200 mg Documented By: LIDIA Glucose (Glucose Gel 15 Gm Gel..Gram.) 15 gm PO Q15M PRN; Protocol PRN Reason: per Hypoglycemia Standing Ord. Guaifenesin (Guaifenesin La 600 Mg Tab.Er.12h) 600 mg PO BID [facility] Last Admin: 11/25/22 09:17 Dose: 600 mg Documented By: DANNY Guaifenesin/Dextromethorphan (Guaifenesin Dm 100/10/5 Ml 5 Ml Syrup) 5 ml PO Q4H PRN PRN Reason: cough Last Admin: 11/18/22 02:10 Dose: 5 ml Documented By: JERONIMO Hydroxyzine HCl (Hydroxyzine Hcl 25 Mg Tablet) 25 mg PO TID PRN PRN Reason: Anxiety Last Admin: 11/25/22 05:20 Dose: 25 mg Documented By: TYSHAWN Dextrose (D10) 250 mls @ 750 mls/hr IV Q15M PRN; Protocol PRN Reason: per Hypoglycemia Standing Ord. Insulin Human Lispro (Insulin Lispro 100 Unit/Ml 3 Ml Vial) 0 unit SUBCUT QIDACHS [facility]; Protocol Last Admin: 11/25/22 12:57 Dose: 2 unit Documented By: LIDIA Lidocaine (Lidocaine 4 % Patch Adh..Patch) 1 patch TRANSDERMA DAILY [facility] Last Admin: 11/25/22 09:18 Dose: Not Given Documented By: DANNY Non-Admin Reason: Patient Refused Loperamide HCl (Loperamide Hcl 2 Mg Capsule) 2 mg PO Q4H PRN PRN Reason: Diarrhea Last Admin: 11/13/22 20:57 Dose: 2 mg Documented By: GIAN Lorazepam (Lorazepam 0.5 Mg Tablet) 0.5 mg PO TID PRN PRN Reason: Anxiety Last Admin: 11/25/22 09:29 Dose: 0.5 mg Documented By: DANNY Magnesium Hydroxide (Milk Of Magnesia 30 Ml Oral.Susp) 30 ml PO DAILY PRN PRN Reason: Constipation Melatonin (Melatonin 3 Mg Tablet) 3 mg PO BEDTIME PRN PRN Reason: Insomnia Metformin HCl (Metformin Hcl 1,000 Mg Tablet) 1,000 mg PO DAILY [facility] Last Admin: 11/25/22 09:17 Dose: 1,000 mg Documented By: DANNY Metoprolol Tartrate (Metoprolol Tartrate 100 Mg Tablet) 100 mg PO BID [facility]; Protocol Last Admin: 11/25/22 09:17 Dose: 100 mg Documented By: DANNY Nitroglycerin (Nitroglycerin 0.4 Mg Tab.Subl) 0.4 mg SUBLINGUAL Q5M PRN PRN Reason: Chest Pain Last Admin: 11/15/22 18:29 Dose: 1 tab Documented By: COTEMA Nystatin (Nystatin Powder 15 Gm Bottle) 1 appl TOPICAL BID [facility]; Protocol Last Admin: 11/25/22 09:19 Dose: 1 appl Documented By: DANNY Omeprazole (Omeprazole 20 Mg Capsule.Dr) 20 mg PO DAILY@0630 [facility] Last Admin: 11/25/22 05:14 Dose: 20 mg Documented By: TYSHAWN Ondansetron HCl (Ondansetron Odt 4 Mg Tab.Rapdis) 4 mg TRANSLINGU Q8H PRN PRN Reason: Nausea Oxycodone HCl (Oxycodone Hcl Immed Release 5 Mg Tablet) 5 mg PO Q6H PRN PRN Reason: Pain, Moderate(Pain Scale 4-6) Last Admin: 11/25/22 12:56 Dose: 5 mg Documented By: LIDIA Phenytoin Sodium (Phenytoin Sodium Extended 100 Mg Capsule) 200 mg PO DAILY [facility] Last Admin: 11/25/22 09:16 Dose: 200 mg Documented By: DANNY Phenytoin Sodium (Phenytoin Sodium Extended 100 Mg Capsule) 400 mg PO BEDTIME [facility] Last Admin: 11/24/22 20:56 Dose: 400 mg Documented By: TYSHAWN Quetiapine Fumarate (Quetiapine Fumarate 200 Mg Tablet) 200 mg PO BEDTIME [facility] Last Admin: 11/24/22 20:56 Dose: 200 mg Documented By: TYSHAWN Quetiapine Fumarate (Quetiapine Fumarate 100 Mg Tablet) 100 mg PO BEDTIME PRN PRN Reason: Insomnia Last Admin: 11/13/22 23:54 Dose: 100 mg Documented By: GIAN Senna (Sennosides 8.6 Mg Tablet) 8.6 mg PO DAILY [facility] Last Admin: 11/25/22 09:19 Dose: Not Given Documented By: DANNY Non-Admin Reason: Patient Refused Simethicone (Simethicone 80 Mg Tab.Chew) 80 mg PO TID PRN PRN Reason: Indigestion Last Admin: 11/13/22 23:54 Dose: 80 mg Documented By: GIAN Sodium Chloride (0.9 % Sodium Chloride Flush 3 Ml Syringe) 3 ml IVFLUSH QSHIFT [facility] Last Admin: 11/25/22 09:18 Dose: 3 ml Documented By: DANNY Torsemide (Torsemide 20 Mg Tablet) 40 mg PO DAILY [facility]; Protocol Last Admin: 11/25/22 09:28 Dose: 40 mg Documented By: DANNY Trazodone HCl (Trazodone Hcl 50 Mg Tablet) 50 mg PO BEDTIME PRN PRN Reason: Insomnia Labs 11/24/22 05:25 11/25/22 06:03 Labs: Laboratory Results - last 24 hr 11/24/22 11/24/22 11/25/22 16:24 20:12 06:03 Estim Creat Clear Calc 149.5 Estimated GFR > 60 POC Glucose 155 H 153 H 11/25/22 11/25/22 07:10 11:00 Estim Creat Clear Calc Estimated GFR POC Glucose 159 H 168 H Assessment and Plan (1) Atelectasis of right lung: Status: Acute (2) Osteomyelitis of foot: Status: Acute (3) Atrial fibrillation with rapid ventricular response: Status: Acute (4) Physical deconditioning: Status: Acute Plan 62M PMH paroxysmal afib, severe depression, morbid obesity, DM, chronic diastol ic chf, gerd, moderate persistent asthma, epilepsy, HTN, history of CVA, presented with chest pain. Dyspnea 2/2 RLL Atelactasis improved CXR showing improvement chest PT , mucinex, incentive spirometry CPAP at night, advised to wear with naps as well , he will need outpatient sleep study to get CPAP wean O2 down as tolerated Physical deconditioning PT rec SNF Hypotension resolved received a unit of blood and IVF Chest pain Cardio appreciated, unlikely cardiac and get it all the time, PRN nitro on Eliquis and statin and beta-deysi troponin negative acute on chronic diastolic CHF and probable deconditioning improved was on both lasix and torsemide PO Keep on Torsemide only for now acute on chronic anemia iron deficiency, inflammatory transfused 2 units prbc with good response follow H&H Morbid obesity Weight loss recommended Paroxysmal atrial fibrillation with rapid ventricular response metoprolol 100mg bid, Eliquis diltiazem increased to 240mg daily po dig 0.125 daily monitor on tele Diabetes Insulin, monitor point of care GERD PPI Moderate persistent asthma No acute exacerbation, bronchodilators as needed Mood disorder with suicidal ideation Continue Cymbalta, Abilify ?osteomyelitis of right distal 1st phalanx unclear chronicity Finished IV vancomycin until November 21, 2022 DC PICC start p.o. doxy DVT prophylaxis on Eliquis Full code reason for continued hospitalization: discharge planning to SNF pending finalization Time Spent With Patient Time: Total time managing care of this patient today ____ minutes. Quality Stroke Does the patient have a stroke diagnosis?: No VTE Prior VTE?: No VTE Risk Level:: Medical - moderate - high VTE Device Contraindication: Treatment Not Indicated VTE Drug Contraindication: N/A - Med Ordered
[2022-11-25 15:56] VITALS: BP 136/53; PULSE 72; RESP 14; TEMP 36.3; O2SAT 98
--- NOTE | 2022-11-25 16:08 | MHC.CM.PN ---
CM was called to Patient's room by environmental field office manager r/t what appeared to be a conflict involving Patient and his Son/Zach. Patient has been accepted at [facility] for STR but he wants to go home. Zach and BOLIVAR explained to Patient that he is being evicted and does not have a home/apartment to return to. Patient stated that it would only take a phone call to get a new apartment. CM explained that finding a new apartment can be time consuming and something that Patient does not need to remain in the hospital to do but could be worked on from STR. Per Charge Nurse, Patient's mental status appears to have fluctuated throughout the day(at joe point Patient thought it was July). CM reached out to MD, inquiring if a Capacity eval is needed. CM will follow.
[2022-11-25 16:29] LABS: Glucose, Whole Blood 127 mg/dL (60-115)
[2022-11-25 19:25] VITALS: BP 140/69; PULSE 93; RESP 15; TEMP 36.5; O2SAT 98
[2022-11-25 20:18] LABS: Glucose, Whole Blood 115 mg/dL (60-115)
[2022-11-25] MEDS: Phenytoin Sodium Extended 100 MG CAPSULE 400 MG PO (21:41)
[2022-11-25] MEDS: QUEtiapine Fumarate 200 MG TABLET PO (21:41)
[2022-11-25] MEDS: Atorvastatin Calcium 80 MG TABLET PO (21:42)
[2022-11-25 23:18] VITALS: BP 80/40; PULSE 68; RESP 18; TEMP 36.2; O2SAT 91
--- NOTE | 2022-11-25 23:46 | ECG_ITS ---
Test Reason : hypotensive/hypoxic/Rapid response Blood Pressure : / mmHG Vent. Rate : 074 BPM Atrial Rate : 000 BPM P-R Int : 000 ms QRS Dur : 178 ms QT Int : 434 ms P-R-T Axes : 000 -83 066 degrees QTc Int : 481 ms Atrial fibrillation Left axis deviation Right bundle branch block Inferior infarct (cited on or before 24-MAR-2020) Abnormal ECG When compared with ECG of 15-NOV-2022 03:58, Vent. rate has decreased BY 36 BPM Referred By: Rachna Foley Electronically Signed By:IRVING ORTEGA
[2022-11-26] VITALS (8 sets, daily range): BP systolic 103–148; BP diastolic 54–77; PULSE 70–96; RESP 14–22; TEMP 36–36.6; O2SAT 92–96
--- NOTE | 2022-11-26 00:30 | PC.NURSE ---
Pt was found to be hypotensive 80/40 manually. Pt was pale and lethargic w/ eyes rolling back. He reported feeling lightheaded, Pt was trendelenburg and Rapid response called. Stat EKG performed and BP started to improve in trend position. Color started to come back. BP went up to 103/54. Pt was also hypoxic and placed on his cpap, now at 6L. Continuos pulse ox on. Safety measures maintained.
[2022-11-26] MEDS: Omeprazole 20 MG CAPSULE.DR PO (05:31)
[2022-11-26 06:50] LABS: Creatinine Clr Calc Pharmacy 151.3; Estimated Glomerular Filt Rate > 60
[2022-11-26 07:08] LABS: Glucose, Whole Blood 131 mg/dL (60-115)
[2022-11-26] MEDS: Torsemide 20 MG TABLET 40 MG PO (09:27)
[2022-11-26] MEDS: Apixaban 5 MG TABLET PO ×2 (09:27→21:25)
[2022-11-26] MEDS: guaiFENesin LA 600 MG TAB.ER.12H PO ×2 (09:27→21:24)
[2022-11-26] MEDS: Sennosides 8.6 MG TABLET PO (09:27)
[2022-11-26] MEDS: Phenytoin Sodium Extended 100 MG CAPSULE 200 MG PO (09:27)
[2022-11-26] MEDS: Gabapentin 100 MG CAPSULE 200 MG PO ×4 (09:27→21:27)
[2022-11-26] MEDS: Doxycycline Monohydrate 100 MG CAPSULE PO ×2 (09:27→21:24)
[2022-11-26] MEDS: Digoxin 0.125 MG TABLET PO (09:28)
[2022-11-26] MEDS: Metoprolol Tartrate 100 MG TABLET PO ×2 (09:28→21:24)
[2022-11-26] MEDS: DULoxetine HCl 60 MG CAPSULE.DR PO ×2 (09:28→21:25)
[2022-11-26] MEDS: metFORMIN HCl 1,000 MG TABLET 1000 MG PO (09:28)
[2022-11-26] MEDS: Ferrous Sulfate 324 MG TABLET.DR PO (09:28)
[2022-11-26] MEDS: ARIPiprazole 10 MG TABLET PO (09:28)
[2022-11-26 11:01] LABS: Glucose, Whole Blood 189 mg/dL (60-115)
[2022-11-26] MEDS: Insulin Lispro 100 UNIT/ML 3 ML VIAL SUBCUT ×2 (12:06→21:28)
[2022-11-26] MEDS: LORazepam 0.5 MG TABLET PO ×2 (12:13→20:07)
[2022-11-26] MEDS: oxyCODONE HCl Immed Release 5 MG TABLET PO ×2 (12:13→20:07)
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
[2022-11-26 13:25] LABS: MANUAL DIFF FLAG NO
[2022-11-26 13:27] LABS: Basophils Percent Auto 0.1 % (0-2); Eosinophils Percent Auto 0.4 % (0-4); Hematocrit 33.1 % (42.0-52.0); Hemoglobin 9.3 g/dl (14.0-18.0); Imm Gran Abs Auto 0.02 X10*3/uL (0.00-0.03); Imm Gran Pct Auto 0.3 % (0.0-0.4); Lymphocytes Absolute Auto 0.6 X10*3/uL (1.2-4.9); Lymphocytes Percent Auto 8.3 % (20-40); Mean Corpuscular HGB Conc 28.1 g/dl (31.0-36.0); Mean Corpuscular Hemoglobin 22.5 pg (27.0-33.0); Mean Platelet Volume 9.8 fL (9.4-12.4); Monocytes Absolute Auto 0.6 X10*3/uL (0.1-1.2); Monocytes Percent Auto 8.9 % (2-11); Neutrophils Absolute Auto 5.7 x10*3/uL (2.0-8.3); Platelet Count 380 X10*3/uL (160-400); Red Blood Count 4.14 X10*6/uL (4.60-5.80); Red Cell Distribution Width 22.1 % (11.0-16.0)
[2022-11-26 15:55] LABS: Glucose, Whole Blood 145 mg/dL (60-115)
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
--- NOTE | 2022-11-26 16:11 | MHC.CM.PN ---
EMR reviewed and per MD rounds, pt not medically cleared for D/C due to pending psych eval for capacity. CM will continue to follow.
[2022-11-26] MEDS: 0.9 % Sodium Chloride Flush 3 ML SYRINGE IVFLUSH ×2 (16:54→20:06)
[2022-11-26 20:13] LABS: Glucose, Whole Blood 172 mg/dL (60-115)
[2022-11-26] MEDS: Phenytoin Sodium Extended 100 MG CAPSULE 400 MG PO (21:27)
[2022-11-26] MEDS: Atorvastatin Calcium 80 MG TABLET PO (21:28)
[2022-11-26] MEDS: QUEtiapine Fumarate 200 MG TABLET PO (21:28)
[2022-11-27] VITALS (9 sets, daily range): BP systolic 100–138; BP diastolic 55–78; PULSE 65–92; RESP 15–20; TEMP 36.1–37.2; O2SAT 88–98
[2022-11-27 06:19] LABS: MANUAL DIFF FLAG NO
[2022-11-27 06:24] LABS: Basophils Percent Auto 0.3 % (0-2); Eosinophils Absolute Auto 0.1 X10*3/uL (0.0-0.4); Eosinophils Percent Auto 1.2 % (0-4); Hematocrit 32.3 % (42.0-52.0); Hemoglobin 8.9 g/dl (14.0-18.0); Imm Gran Abs Auto 0.03 X10*3/uL (0.00-0.03); Imm Gran Pct Auto 0.5 % (0.0-0.4); Lymphocytes Absolute Auto 0.7 X10*3/uL (1.2-4.9); Lymphocytes Percent Auto 11.3 % (20-40); Mean Corpuscular HGB Conc 27.6 g/dl (31.0-36.0); Mean Corpuscular Hemoglobin 22.5 pg (27.0-33.0); Mean Corpuscular Volume 81.8 fL (80.0-98.0); Mean Platelet Volume 9.9 fL (9.4-12.4); Monocytes Absolute Auto 0.6 X10*3/uL (0.1-1.2); Monocytes Percent Auto 10.7 % (2-11); Neutrophils Absolute Auto 4.4 x10*3/uL (2.0-8.3); Platelet Count 318 X10*3/uL (160-400); Red Blood Count 3.95 X10*6/uL (4.60-5.80); Red Cell Distribution Width 21.9 % (11.0-16.0); White Blood Count 5.8 X10*3/uL (4.8-10.8)
[2022-11-27 07:01] LABS: Blood Urea Nitrogen 11 mg/dL (9-16); Creatinine Clr Calc Pharmacy 153.2; Estimated Glomerular Filt Rate > 60; Glucose Random 150 mg/dL (60-115)
[2022-11-27 07:10] LABS: Anion Gap 15 (12-20)
[2022-11-27 07:25] LABS: Carbon Dioxide 40 mmol/L (22-29); Chloride 89 mmol/L (96-108); Potassium 2.9 mmol/L (3.3-5.1); Sodium 141 mmol/L (135-145)
[2022-11-27 07:50] LABS: Glucose, Whole Blood 162 mg/dL (60-115)
[2022-11-27] MEDS: Gabapentin 100 MG CAPSULE 200 MG PO ×4 (08:17→22:45)
[2022-11-27] MEDS: ARIPiprazole 10 MG TABLET PO (08:17)
[2022-11-27] MEDS: Insulin Lispro 100 UNIT/ML 3 ML VIAL SUBCUT ×3 (08:19→22:45)
[2022-11-27] MEDS: LORazepam 0.5 MG TABLET PO ×2 (08:23→16:23)
[2022-11-27] MEDS: Phenytoin Sodium Extended 100 MG CAPSULE 200 MG PO (08:23)
[2022-11-27] MEDS: guaiFENesin LA 600 MG TAB.ER.12H PO ×2 (08:23→22:45)
[2022-11-27] MEDS: dilTIAZem HCL CD 240 MG CAP.ER.DEG PO (08:23)
[2022-11-27] MEDS: DULoxetine HCl 60 MG CAPSULE.DR PO ×2 (08:23→22:43)
[2022-11-27] MEDS: Metoprolol Tartrate 100 MG TABLET PO ×2 (08:23→22:46)
[2022-11-27] MEDS: oxyCODONE HCl Immed Release 5 MG TABLET PO ×3 (08:23→22:57)
[2022-11-27] MEDS: metFORMIN HCl 1,000 MG TABLET 1000 MG PO (08:23)
[2022-11-27] MEDS: Torsemide 20 MG TABLET 40 MG PO (08:24)
[2022-11-27] MEDS: Digoxin 0.125 MG TABLET PO (08:24)
[2022-11-27] MEDS: Apixaban 5 MG TABLET PO ×2 (08:24→22:44)
[2022-11-27] MEDS: Doxycycline Monohydrate 100 MG CAPSULE PO ×2 (08:24→22:44)
[2022-11-27] MEDS: 0.9 % Sodium Chloride Flush 3 ML SYRINGE IVFLUSH ×3 (08:25→22:52)
--- NOTE | 2022-11-27 11:16 | HO.PM.IMPN ---
Subjective Subjective Date of Service: 11/27/22 Physical Exam Vital Signs: Vital Signs: Last Vital Signs Temp 98.9 F 11/27/22 07:38 Pulse 75 11/27/22 07:38 Resp 18 11/27/22 07:38 BP 135/67 11/27/22 07:38 Pulse Ox 98 11/27/22 07:38 O2 Del Method Nasal Cannula 11/27/22 07:38 O2 Flow Rate 3 11/27/22 07:38 BMI result Body Mass Index 45.1 Objective Data Active Medications Acetaminophen (Acetaminophen 325 Mg Tablet) 650 mg PO Q6H PRN PRN Reason: Headache/Pain Mild Scale (1-3) Last Admin: 11/16/22 03:39 Dose: 650 mg Documented By: GINI Al Hydroxide/Mg Hydroxide (Magnesium Hydrox/Alum Hydrox 30 Ml Oral.Susp) 30 ml PO Q6H PRN PRN Reason: Heartburn/Nausea Albuterol Sulfate (Albuterol Sulfate 90 Mcg 8 Gm Inhaler) 2 puff INHALE Q4H PRN PRN Reason: Shortness Of Breath Last Admin: 11/21/22 22:34 Dose: 2 puff Documented By: TABBY Apixaban (Apixaban 5 Mg Tablet) 5 mg PO BID [facility] Last Admin: 11/27/22 08:24 Dose: 5 mg Documented By: RADHA Aripiprazole (Aripiprazole 10 Mg Tablet) 10 mg PO DAILY [facility] Last Admin: 11/27/22 08:17 Dose: 10 mg Documented By: RADHA Atorvastatin Calcium (Atorvastatin Calcium 80 Mg Tablet) 80 mg PO BEDTIME [facility] Last Admin: 11/26/22 21:28 Dose: 80 mg Documented By: ESTEVAN Bisacodyl (Bisacodyl 5 Mg Tablet.Dr) 10 mg PO DAILY PRN PRN Reason: Constipation Digoxin (Digoxin 0.125 Mg Tablet) 0.125 mg PO DAILY [facility] Last Admin: 11/27/22 08:24 Dose: 0.125 mg Documented By: RADHA Diltiazem HCl (Diltiazem Hcl Cd 240 Mg Cap.Er.Deg) 240 mg PO DAILY [facility]; Protocol Last Admin: 11/27/22 08:23 Dose: 240 mg Documented By: RADHA Doxycycline Monohydrate (Doxycycline Monohydrate 100 Mg Capsule) 100 mg PO Q12H [facility] Stop: 12/22/22 21:01 Last Admin: 11/27/22 08:24 Dose: 100 mg Documented By: RADHA Duloxetine HCl (Duloxetine Hcl 60 Mg Capsule.) 60 mg PO BID [facility] Last Admin: 11/27/22 08:23 Dose: 60 mg Documented By: RADHA Ferrous Sulfate (Ferrous Sulfate 324 Mg Tablet.) 324 mg PO MoWeFr@0900 [facility] Last Admin: 11/26/22 09:28 Dose: 324 mg Documented By: SOFFAClark Fluticasone Propionate (Fluticasone Propionate Nasal 16 Gm [place]) 1 spray NOSTRIL-B BID [facility] Last Admin: 11/27/22 08:24 Dose: Not Given Documented By: RADHA Non-Admin Reason: Patient Refused Gabapentin (Gabapentin 100 Mg Capsule) 200 mg PO QID [facility] Last Admin: 11/27/22 08:17 Dose: 200 mg Documented By: RADHA Glucose (Glucose Gel 15 Gm Gel..Gram.) 15 gm PO Q15M PRN; Protocol PRN Reason: per Hypoglycemia Standing Ord. Guaifenesin (Guaifenesin La 600 Mg Tab.Er.12h) 600 mg PO BID [facility] Last Admin: 11/27/22 08:23 Dose: 600 mg Documented By: RADHA Guaifenesin/Dextromethorphan (Guaifenesin Dm 100/10/5 Ml 5 Ml Syrup) 5 ml PO Q4H PRN PRN Reason: cough Last Admin: 11/18/22 02:10 Dose: 5 ml Documented By: JERONIMO Hydroxyzine HCl (Hydroxyzine Hcl 25 Mg Tablet) 25 mg PO TID PRN PRN Reason: Anxiety Last Admin: 11/25/22 05:20 Dose: 25 mg Documented By: TYSHAWN Dextrose (D10) 250 mls @ 750 mls/hr IV Q15M PRN; Protocol PRN Reason: per Hypoglycemia Standing Ord. Insulin Human Lispro (Insulin Lispro 100 Unit/Ml 3 Ml Vial) 0 unit SUBCUT QIDACHS [facility]; Protocol Last Admin: 11/27/22 08:19 Dose: 2 unit Documented By: RADHA Lidocaine (Lidocaine 4 % Patch Adh..Patch) 1 patch TRANSDERMA DAILY [facility] Last Admin: 11/27/22 08:24 Dose: Not Given Documented By: RADHA Non-Admin Reason: Patient Refused Loperamide HCl (Loperamide Hcl 2 Mg Capsule) 2 mg PO Q4H PRN PRN Reason: Diarrhea Last Admin: 11/13/22 20:57 Dose: 2 mg Documented By: GIAN Lorazepam (Lorazepam 0.5 Mg Tablet) 0.5 mg PO TID PRN PRN Reason: Anxiety Last Admin: 11/27/22 08:23 Dose: 0.5 mg Documented By: RADHA Magnesium Hydroxide (Milk Of Magnesia 30 Ml Oral.Susp) 30 ml PO DAILY PRN PRN Reason: Constipation Melatonin (Melatonin 3 Mg Tablet) 3 mg PO BEDTIME PRN PRN Reason: Insomnia Metformin HCl (Metformin Hcl 1,000 Mg Tablet) 1,000 mg PO DAILY [facility] Last Admin: 11/27/22 08:23 Dose: 1,000 mg Documented By: RADHA Metoprolol Tartrate (Metoprolol Tartrate 100 Mg Tablet) 100 mg PO BID [facility]; Protocol Last Admin: 11/27/22 08:23 Dose: 100 mg Documented By: RADHA Nitroglycerin (Nitroglycerin 0.4 Mg Tab.Subl) 0.4 mg SUBLINGUAL Q5M PRN PRN Reason: Chest Pain Last Admin: 11/15/22 18:29 Dose: 1 tab Documented By: COTEMA Nystatin (Nystatin Powder 15 Gm Bottle) 1 appl TOPICAL BID [facility]; Protocol Last Admin: 11/27/22 08:24 Dose: Not Given Documented By: RADHA Non-Admin Reason: Patient Refused Omeprazole (Omeprazole 20 Mg Capsule.) 20 mg PO DAILY@0630 [facility] Last Admin: 11/27/22 06:23 Dose: Not Given Documented By: ESTEVAN Non-Admin Reason: Patient Refused Ondansetron HCl (Ondansetron Odt 4 Mg Tab.Rapdis) 4 mg TRANSLINGU Q8H PRN PRN Reason: Nausea Oxycodone HCl (Oxycodone Hcl Immed Release 5 Mg Tablet) 5 mg PO Q6H PRN PRN Reason: Pain, Moderate(Pain Scale 4-6) Last Admin: 11/27/22 08:23 Dose: 5 mg Documented By: RADHA Phenytoin Sodium (Phenytoin Sodium Extended 100 Mg Capsule) 200 mg PO DAILY [facility] Last Admin: 11/27/22 08:23 Dose: 200 mg Documented By: RADHA Phenytoin Sodium (Phenytoin Sodium Extended 100 Mg Capsule) 400 mg PO BEDTIME [facility] Last Admin: 11/26/22 21:27 Dose: 400 mg Documented By: ESTEVAN Quetiapine Fumarate (Quetiapine Fumarate 200 Mg Tablet) 200 mg PO BEDTIME [facility] Last Admin: 11/26/22 21:28 Dose: 200 mg Documented By: ESTEVAN Quetiapine Fumarate (Quetiapine Fumarate 100 Mg Tablet) 100 mg PO BEDTIME PRN PRN Reason: Insomnia Last Admin: 11/13/22 23:54 Dose: 100 mg Documented By: GIAN Senna (Sennosides 8.6 Mg Tablet) 8.6 mg PO DAILY [facility] Last Admin: 11/27/22 08:24 Dose: Not Given Documented By: RADHA Non-Admin Reason: Patient Refused Simethicone (Simethicone 80 Mg Tab.Chew) 80 mg PO TID PRN PRN Reason: Indigestion Last Admin: 11/13/22 23:54 Dose: 80 mg Documented By: GIAN Sodium Chloride (0.9 % Sodium Chloride Flush 3 Ml Syringe) 3 ml IVFLUSH QSHIFT [facility] Last Admin: 11/27/22 08:25 Dose: 3 ml Documented By: RADHA Torsemide (Torsemide 20 Mg Tablet) 40 mg PO DAILY [facility]; Protocol Last Admin: 11/27/22 08:24 Dose: 40 mg Documented By: RADHA Trazodone HCl (Trazodone Hcl 50 Mg Tablet) 50 mg PO BEDTIME PRN PRN Reason: Insomnia Labs 11/27/22 06:09 11/27/22 06:09 Labs: Laboratory Results - last 24 hr 11/26/22 11/26/22 11/26/22 13:18 15:51 20:09 MCV 80.0 MCH 22.5 L MCHC 28.1 L RDW 22.1 H Plt Count 380 MPV 9.8 Immature Gran % (Auto) 0.3 Neut % (Auto) 82.0 H Lymph % (Auto) 8.3 L [place] % (Auto) 8.9 Eos % (Auto) 0.4 Baso % (Auto) 0.1 Lymph # (Auto) 0.6 L [place] # (Auto) 0.6 Eos # (Auto) 0.0 Baso # (Auto) 0.0 Abs Immat Gran (auto) 0.02 Absolute Neuts (auto) 5.7 Absolute Nucleated RBC 0.000 Nucleated RBC % (auto) 0.0 Anion Gap Estim Creat Clear Calc Estimated GFR POC Glucose 145 H 172 H Random Glucose Calcium 11/27/22 11/27/22 11/27/22 06:09 06:09 07:39 MCV 81.8 MCH 22.5 L MCHC 27.6 L RDW 21.9 H Plt Count 318 MPV 9.9 Immature Gran % (Auto) 0.5 H Neut % (Auto) 76.0 H Lymph % (Auto) 11.3 L [place] % (Auto) 10.7 Eos % (Auto) 1.2 Baso % (Auto) 0.3 Lymph # (Auto) 0.7 L [place] # (Auto) 0.6 Eos # (Auto) 0.1 Baso # (Auto) 0.0 Abs Immat Gran (auto) 0.03 Absolute Neuts (auto) 4.4 Absolute Nucleated RBC 0.000 Nucleated RBC % (auto) 0.0 Anion Gap 15 Estim Creat Clear Calc 153.2 Estimated GFR > 60 POC Glucose 162 H Random Glucose 150 H Calcium 9.0 Assessment and Plan Time Spent With Patient Time: Total time managing care of this patient today ____ minutes. Quality Stroke Does the patient have a stroke diagnosis?: No VTE Prior VTE?: No VTE Risk Level:: Medical - moderate - high VTE Device Contraindication: Treatment Not Indicated VTE Drug Contraindication: N/A - Med Ordered
[2022-11-27 11:37] LABS: Glucose, Whole Blood 173 mg/dL (60-115)
--- NOTE | 2022-11-27 13:11 | MHC.CM.PN ---
[facility] inquired RE accepting SNF; following review of Pt's chart, this CM reached out to SNF via [employer] to inquire if authorization was needed given Pt has [employer] (managed CALVIN product), and if it had been in fact obtained. Pending response from SNF. CM to follow.
--- NOTE | 2022-11-27 14:22 | P.PNIM_ITS ---
Subjective Subjective Date of Service: 11/27/22 Interval History: Patient seen and examined at bedside, he is very pleasant, oriented x2, able to answer questions appropriately. Has had breakfast this morning with no acute complaints, no nausea vomiting, abdominal pain diarrhea constipation, no urinary symptoms. I discussed his discharge with him, stating that according to his family he does not have an apartment or a home to return to and that PT also recommended the patient go to rehab/short term nursing facility. At this time patient is agreeable. Physical Exam Vital Signs: Vital Signs: Last Vital Signs Temp 98.1 F 11/27/22 11:19 Pulse 65 11/27/22 11:19 Resp 18 11/27/22 11:19 BP 120/61 11/27/22 11:19 Pulse Ox 97 11/27/22 11:19 O2 Del Method Nasal Cannula 11/27/22 11:19 O2 Flow Rate 3 11/27/22 11:19 BMI result Body Mass Index 45.1 Const: Other: Alert oriented x2, able to answer questions appropriately Resp: Other: Normal respiratory rate and effort Cardio: Other: Regular rate and rhythm GI: Other: Abdomen is soft nontender Extrem: Other: No lower extremity edema Objective Data Active Medications Acetaminophen (Acetaminophen 325 Mg Tablet) 650 mg PO Q6H PRN PRN Reason: Headache/Pain Mild Scale (1-3) Last Admin: 11/16/22 03:39 Dose: 650 mg Documented By: GINI Al Hydroxide/Mg Hydroxide (Magnesium Hydrox/Alum Hydrox 30 Ml Oral.Susp) 30 ml PO Q6H PRN PRN Reason: Heartburn/Nausea Albuterol Sulfate (Albuterol Sulfate 90 Mcg 8 Gm Inhaler) 2 puff INHALE Q4H PRN PRN Reason: Shortness Of Breath Last Admin: 11/21/22 22:34 Dose: 2 puff Documented By: TABBY Apixaban (Apixaban 5 Mg Tablet) 5 mg PO BID [facility] Last Admin: 11/27/22 08:24 Dose: 5 mg Documented By: RADHA Aripiprazole (Aripiprazole 10 Mg Tablet) 10 mg PO DAILY [facility] Last Admin: 11/27/22 08:17 Dose: 10 mg Documented By: RADHA Atorvastatin Calcium (Atorvastatin Calcium 80 Mg Tablet) 80 mg PO BEDTIME [facility] Last Admin: 11/26/22 21:28 Dose: 80 mg Documented By: ESTEVAN Bisacodyl (Bisacodyl 5 Mg Tablet.) 10 mg PO DAILY PRN PRN Reason: Constipation Digoxin (Digoxin 0.125 Mg Tablet) 0.125 mg PO DAILY [facility] Last Admin: 11/27/22 08:24 Dose: 0.125 mg Documented By: RADHA Diltiazem HCl (Diltiazem Hcl Cd 240 Mg Cap.Er.Deg) 240 mg PO DAILY [facility]; Protocol Last Admin: 11/27/22 08:23 Dose: 240 mg Documented By: RADHA Doxycycline Monohydrate (Doxycycline Monohydrate 100 Mg Capsule) 100 mg PO Q12H [facility] Stop: 12/22/22 21:01 Last Admin: 11/27/22 08:24 Dose: 100 mg Documented By: RADHA Duloxetine HCl (Duloxetine Hcl 60 Mg Capsule.) 60 mg PO BID [facility] Last Admin: 11/27/22 08:23 Dose: 60 mg Documented By: RADHA Ferrous Sulfate (Ferrous Sulfate 324 Mg Tablet.) 324 mg PO MoWeFr@0900 [facility] Last Admin: 11/26/22 09:28 Dose: 324 mg Documented By: FRANCISFAClark Fluticasone Propionate (Fluticasone Propionate Nasal 16 Gm [place]) 1 spray NOSTRIL-B BID [facility] Last Admin: 11/27/22 08:24 Dose: Not Given Documented By: RADHA Non-Admin Reason: Patient Refused Gabapentin (Gabapentin 100 Mg Capsule) 200 mg PO QID [facility] Last Admin: 11/27/22 12:57 Dose: 200 mg Documented By: TYLER Glucose (Glucose Gel 15 Gm Gel..Gram.) 15 gm PO Q15M PRN; Protocol PRN Reason: per Hypoglycemia Standing Ord. Guaifenesin (Guaifenesin La 600 Mg Tab.Er.12h) 600 mg PO BID [facility] Last Admin: 11/27/22 08:23 Dose: 600 mg Documented By: RADHA Guaifenesin/Dextromethorphan (Guaifenesin Dm 100/10/5 Ml 5 Ml Syrup) 5 ml PO Q4H PRN PRN Reason: cough Last Admin: 11/18/22 02:10 Dose: 5 ml Documented By: JERONIMO Hydroxyzine HCl (Hydroxyzine Hcl 25 Mg Tablet) 25 mg PO TID PRN PRN Reason: Anxiety Last Admin: 11/25/22 05:20 Dose: 25 mg Documented By: TYSHAWN Dextrose (D10) 250 mls @ 750 mls/hr IV Q15M PRN; Protocol PRN Reason: per Hypoglycemia Standing Ord. Insulin Human Lispro (Insulin Lispro 100 Unit/Ml 3 Ml Vial) 0 unit SUBCUT QIDACHS [facility]; Protocol Last Admin: 11/27/22 12:57 Dose: 2 unit Documented By: TYLER Lidocaine (Lidocaine 4 % Patch Adh..Patch) 1 patch TRANSDERMA DAILY [facility] Last Admin: 11/27/22 08:24 Dose: Not Given Documented By: RADHA Non-Admin Reason: Patient Refused Loperamide HCl (Loperamide Hcl 2 Mg Capsule) 2 mg PO Q4H PRN PRN Reason: Diarrhea Last Admin: 11/13/22 20:57 Dose: 2 mg Documented By: GIAN Lorazepam (Lorazepam 0.5 Mg Tablet) 0.5 mg PO TID PRN PRN Reason: Anxiety Last Admin: 11/27/22 08:23 Dose: 0.5 mg Documented By: RADHA Magnesium Hydroxide (Milk Of Magnesia 30 Ml Oral.Susp) 30 ml PO DAILY PRN PRN Reason: Constipation Melatonin (Melatonin 3 Mg Tablet) 3 mg PO BEDTIME PRN PRN Reason: Insomnia Metformin HCl (Metformin Hcl 1,000 Mg Tablet) 1,000 mg PO DAILY [facility] Last Admin: 11/27/22 08:23 Dose: 1,000 mg Documented By: RADHA Metoprolol Tartrate (Metoprolol Tartrate 100 Mg Tablet) 100 mg PO BID [facility]; Protocol Last Admin: 11/27/22 08:23 Dose: 100 mg Documented By: RADHA Nitroglycerin (Nitroglycerin 0.4 Mg Tab.Subl) 0.4 mg SUBLINGUAL Q5M PRN PRN Reason: Chest Pain Last Admin: 11/15/22 18:29 Dose: 1 tab Documented By: COTEMA Nystatin (Nystatin Powder 15 Gm Bottle) 1 appl TOPICAL BID [facility]; Protocol Last Admin: 11/27/22 08:24 Dose: Not Given Documented By: RADHA Non-Admin Reason: Patient Refused Omeprazole (Omeprazole 20 Mg Capsule.Dr) 20 mg PO DAILY@0630 [facility] Last Admin: 11/27/22 06:23 Dose: Not Given Documented By: ESTEVAN Non-Admin Reason: Patient Refused Ondansetron HCl (Ondansetron Odt 4 Mg Tab.Rapdis) 4 mg TRANSLINGU Q8H PRN PRN Reason: Nausea Oxycodone HCl (Oxycodone Hcl Immed Release 5 Mg Tablet) 5 mg PO Q6H PRN PRN Reason: Pain, Moderate(Pain Scale 4-6) Last Admin: 11/27/22 08:23 Dose: 5 mg Documented By: RADHA Phenytoin Sodium (Phenytoin Sodium Extended 100 Mg Capsule) 200 mg PO DAILY [facility] Last Admin: 11/27/22 08:23 Dose: 200 mg Documented By: RADHA Phenytoin Sodium (Phenytoin Sodium Extended 100 Mg Capsule) 400 mg PO BEDTIME [facility] Last Admin: 11/26/22 21:27 Dose: 400 mg Documented By: ESTEVAN Quetiapine Fumarate (Quetiapine Fumarate 200 Mg Tablet) 200 mg PO BEDTIME [facility] Last Admin: 11/26/22 21:28 Dose: 200 mg Documented By: ESTEVAN Quetiapine Fumarate (Quetiapine Fumarate 100 Mg Tablet) 100 mg PO BEDTIME PRN PRN Reason: Insomnia Last Admin: 11/13/22 23:54 Dose: 100 mg Documented By: GIAN Senna (Sennosides 8.6 Mg Tablet) 8.6 mg PO DAILY [facility] Last Admin: 11/27/22 08:24 Dose: Not Given Documented By: RADHA Non-Admin Reason: Patient Refused Simethicone (Simethicone 80 Mg Tab.Chew) 80 mg PO TID PRN PRN Reason: Indigestion Last Admin: 11/13/22 23:54 Dose: 80 mg Documented By: GIAN Sodium Chloride (0.9 % Sodium Chloride Flush 3 Ml Syringe) 3 ml IVFLUSH QSHIFT [facility] Last Admin: 11/27/22 08:25 Dose: 3 ml Documented By: RADHA Torsemide (Torsemide 20 Mg Tablet) 40 mg PO DAILY [facility]; Protocol Last Admin: 11/27/22 08:24 Dose: 40 mg Documented By: RADHA Trazodone HCl (Trazodone Hcl 50 Mg Tablet) 50 mg PO BEDTIME PRN PRN Reason: Insomnia Labs 11/27/22 06:09 11/27/22 06:09 Labs: Laboratory Results - last 24 hr 11/26/22 11/26/22 11/27/22 15:51 20:09 06:09 MCV MCH MCHC RDW Plt Count MPV Immature Gran % (Auto) Neut % (Auto) Lymph % (Auto) [place] % (Auto) Eos % (Auto) Baso % (Auto) Lymph # (Auto) [place] # (Auto) Eos # (Auto) Baso # (Auto) Abs Immat Gran (auto) Absolute Neuts (auto) Absolute Nucleated RBC Nucleated RBC % (auto) Anion Gap 15 Estim Creat Clear Calc 153.2 Estimated GFR > 60 POC Glucose 145 H 172 H Random Glucose 150 H Calcium 9.0 11/27/22 11/27/22 11/27/22 06:09 07:39 11:18 MCV 81.8 MCH 22.5 L MCHC 27.6 L RDW 21.9 H Plt Count 318 MPV 9.9 Immature Gran % (Auto) 0.5 H Neut % (Auto) 76.0 H Lymph % (Auto) 11.3 L [place] % (Auto) 10.7 Eos % (Auto) 1.2 Baso % (Auto) 0.3 Lymph # (Auto) 0.7 L [place] # (Auto) 0.6 Eos # (Auto) 0.1 Baso # (Auto) 0.0 Abs Immat Gran (auto) 0.03 Absolute Neuts (auto) 4.4 Absolute Nucleated RBC 0.000 Nucleated RBC % (auto) 0.0 Anion Gap Estim Creat Clear Calc Estimated GFR POC Glucose 162 H 173 H Random Glucose Calcium Assessment and Plan (1) Acute on chronic anemia: Status: Acute (2) Acute heart failure: Status: Acute (3) Dyspnea: Status: Acute (4) Atelectasis of right lung: Status: Acute (5) Hypotension: Status: Acute Plan 62M PMH paroxysmal afib, severe depression, morbid obesity, DM, chronic diastolic chf, gerd, moderate persistent asthma, epilepsy, HTN, history of CVA, presented with chest pain found to have dyspnea # Dyspnea 2/2 RLL Atelactasis - resolving - CXR showing improvement of the atelectasis - continue chest PT , mucinex, incentive spirometry - CPAP at night, and during naps - he will need outpatient sleep study to get CPAP - cpap at bedtime at SNF - wean O2 down as tolerated # Physical deconditioning - PT rec SNF , CM following # lack of Capacity? - family and staff concerned that pt may lack capacity as to his refusal to go to SNF. He has no where to go and has been noted to be delirium, and make thereatening remarks to his son. pt does not remember the icident although witnessed by staff. - evaluated by Psych and pt deemed with capacity and able to make his own decisi ons - at thiem time pt agreeable to go to SNF # Hypotension - resolved - resume home meds - s/p 1 Unit of pRBC and IVF - monitor bp #Chest pain - denies at this time - cardiology evaluated pt, unlikely cardiac - PRN nitro - continue Eliquis, statin and beta-deysi - troponin negative # acute on chronic diastolic CHF and probable deconditioning - reosled with iv lasix - continue po torsemide - monitor I&O, low sodium diet # acute on chronic anemia - s/p 2 units of prbc - no evident source of bleed - hgb stable - follow cbc # Morbid obesity Weight loss recommended # Paroxysmal atrial fibrillation with rapid ventricular response - now controlled - metoprolol increased to 100 mg BID- continue - continue Dilt 240 daily as well as digoxin - telemetry # active diagnosis?osteomyelitis of right distal 1st phalanx - completed iv vanc, now to be on po doxy - started p.o. doxy on 11/22- will need 30 total days #Diabetes - Insulin, monitor point of care - diabetic diet # GERD PPI # Moderate persistent asthma - No acute exacerbation, bronchodilators as needed # Mood disorder with suicidal ideation - evaluated by Psych earlier in admission, no need for inpatient management - Continue Davi Hurtado - psych consulted for capacity DVT prophylaxis on Eliquis Full code reason for continued hospitalization: discharge planning to SNF pending finalization Time Spent With Patient Time: Total time managing care of this patient today ____ minutes. Quality Stroke Does the patient have a stroke diagnosis?: No VTE Prior VTE?: No VTE Risk Level:: Medical - moderate - high VTE Device Contraindication: Treatment Not Indicated VTE Drug Contraindication: N/A - Med Ordered
[2022-11-27 16:20] LABS: Glucose, Whole Blood 132 mg/dL (60-115)
[2022-11-27 19:34] LABS: Glucose, Whole Blood 173 mg/dL (60-115)
[2022-11-27] MEDS: Atorvastatin Calcium 80 MG TABLET PO (22:44)
[2022-11-27] MEDS: QUEtiapine Fumarate 200 MG TABLET PO (22:47)
[2022-11-27] MEDS: Phenytoin Sodium Extended 100 MG CAPSULE 400 MG PO (22:47)
[2022-11-27] MEDS: Nystatin Powder 15 GM BOTTLE 1 APPL TOPICAL (22:48)
[2022-11-27 23:01] LABS: Glucose, Whole Blood 197 mg/dL (60-115)
[2022-11-28] VITALS (7 sets, daily range): BP systolic 108–138; BP diastolic 56–82; PULSE 65–85; RESP 14–20; TEMP 36.1–37; O2SAT 93–96
[2022-11-28] MEDS: Omeprazole 20 MG CAPSULE.DR PO (06:44)
[2022-11-28 07:01] LABS: Creatinine Clr Calc Pharmacy 145.9; Estimated Glomerular Filt Rate > 60
[2022-11-28] MEDS: dilTIAZem HCL CD 240 MG CAP.ER.DEG PO (07:41)
[2022-11-28] MEDS: Metoprolol Tartrate 100 MG TABLET PO ×2 (07:41→20:42)
[2022-11-28] MEDS: Torsemide 20 MG TABLET 40 MG PO (07:41)
[2022-11-28] MEDS: Apixaban 5 MG TABLET PO ×2 (07:41→20:42)
[2022-11-28] MEDS: Doxycycline Monohydrate 100 MG CAPSULE PO ×2 (07:41→20:42)
[2022-11-28] MEDS: ARIPiprazole 10 MG TABLET PO (07:42)
[2022-11-28] MEDS: metFORMIN HCl 1,000 MG TABLET 1000 MG PO (07:42)
[2022-11-28] MEDS: Gabapentin 100 MG CAPSULE 200 MG PO ×3 (07:42→20:42)
[2022-11-28] MEDS: Phenytoin Sodium Extended 100 MG CAPSULE 200 MG PO (07:42)
[2022-11-28] MEDS: Digoxin 0.125 MG TABLET PO (07:42)
[2022-11-28] MEDS: DULoxetine HCl 60 MG CAPSULE.DR PO ×2 (07:42→20:42)
[2022-11-28] MEDS: guaiFENesin LA 600 MG TAB.ER.12H PO ×2 (07:42→20:42)
[2022-11-28] MEDS: 0.9 % Sodium Chloride Flush 3 ML SYRINGE IVFLUSH ×2 (07:43→20:44)
[2022-11-28 07:47] LABS: Glucose, Whole Blood 189 mg/dL (60-115)
[2022-11-28] MEDS: Insulin Lispro 100 UNIT/ML 3 ML VIAL SUBCUT ×4 (07:48→20:50)
--- NOTE | 2022-11-28 11:28 | HO.PM.IMPN ---
Subjective Subjective Date of Service: 11/28/22 Interval History: Seen and evaluated alert and interactive Feels better overall Agreeable to go to [facility] no other overnight events Review of Systems Review of Systems: Yes all other systems are reviewed and are negative Physical Exam Vital Signs: Vital Signs: Last Vital Signs Temp 97.5 F 11/28/22 07:24 Pulse 84 11/28/22 07:24 Resp 18 11/28/22 07:24 BP 122/59 L 11/28/22 07:24 Pulse Ox 96 11/28/22 07:24 O2 Del Method Nasal Cannula 11/28/22 07:24 O2 Flow Rate 4 11/28/22 07:24 BMI result Body Mass Index 45.1 Const: Other: Constitutional : Awake with stimulation, interactive, not in distress Neck : Normal inspection, Supple Cardiovascular : RRR, no JVP, no lower extremity edema Respiratory : fair bilateral air improved on the right base, no crackles, no wheezes , on 3-4L O2 Gastrointestinal: soft, lax, Normal bowel sounds, Non tender Skin : Warm, Dry Neurological : Alert & oriented x3, No focal deficit Objective Data Active Medications Acetaminophen (Acetaminophen 325 Mg Tablet) 650 mg PO Q6H PRN PRN Reason: Headache/Pain Mild Scale (1-3) Last Admin: 11/16/22 03:39 Dose: 650 mg Documented By: GINI Al Hydroxide/Mg Hydroxide (Magnesium Hydrox/Alum Hydrox 30 Ml Oral.Susp) 30 ml PO Q6H PRN PRN Reason: Heartburn/Nausea Albuterol Sulfate (Albuterol Sulfate 90 Mcg 8 Gm Inhaler) 2 puff INHALE Q4H PRN PRN Reason: Shortness Of Breath Last Admin: 11/21/22 22:34 Dose: 2 puff Documented By: TABBY Apixaban (Apixaban 5 Mg Tablet) 5 mg PO BID [facility] Last Admin: 11/28/22 07:41 Dose: 5 mg Documented By: RADHA Aripiprazole (Aripiprazole 10 Mg Tablet) 10 mg PO DAILY [facility] Last Admin: 11/28/22 07:42 Dose: 10 mg Documented By: RADHA Atorvastatin Calcium (Atorvastatin Calcium 80 Mg Tablet) 80 mg PO BEDTIME [facility] Last Admin: 11/27/22 22:44 Dose: 80 mg Documented By: HO.ARMSTRH Bisacodyl (Bisacodyl 5 Mg Tablet.) 10 mg PO DAILY PRN PRN Reason: Constipation Digoxin (Digoxin 0.125 Mg Tablet) 0.125 mg PO DAILY [facility] Last Admin: 11/28/22 07:42 Dose: 0.125 mg Documented By: RADHA Diltiazem HCl (Diltiazem Hcl Cd 240 Mg Cap.Er.Deg) 240 mg PO DAILY [facility]; Protocol Last Admin: 11/28/22 07:41 Dose: 240 mg Documented By: RADHA Doxycycline Monohydrate (Doxycycline Monohydrate 100 Mg Capsule) 100 mg PO Q12H [facility] Stop: 12/22/22 21:01 Last Admin: 11/28/22 07:41 Dose: 100 mg Documented By: RADHA Duloxetine HCl (Duloxetine Hcl 60 Mg Capsule.) 60 mg PO BID [facility] Last Admin: 11/28/22 07:42 Dose: 60 mg Documented By: RADHA Ferrous Sulfate (Ferrous Sulfate 324 Mg Tablet.) 324 mg PO MoWeFr@0900 [facility] Last Admin: 11/26/22 09:28 Dose: 324 mg Documented By: SOFFAClark Fluticasone Propionate (Fluticasone Propionate Nasal 16 Gm [place]) 1 spray NOSTRIL-B BID [facility] Last Admin: 11/28/22 08:00 Dose: Not Given Documented By: RADHA Non-Admin Reason: Patient Refused Gabapentin (Gabapentin 100 Mg Capsule) 200 mg PO QID [facility] Last Admin: 11/28/22 07:42 Dose: 200 mg Documented By: RADHA Glucose (Glucose Gel 15 Gm Gel..Gram.) 15 gm PO Q15M PRN; Protocol PRN Reason: per Hypoglycemia Standing Ord. Guaifenesin (Guaifenesin La 600 Mg Tab.Er.12h) 600 mg PO BID [facility] Last Admin: 11/28/22 07:42 Dose: 600 mg Documented By: RADHA Guaifenesin/Dextromethorphan (Guaifenesin Dm 100/10/5 Ml 5 Ml Syrup) 5 ml PO Q4H PRN PRN Reason: cough Last Admin: 11/18/22 02:10 Dose: 5 ml Documented By: JERONIMO Hydroxyzine HCl (Hydroxyzine Hcl 25 Mg Tablet) 25 mg PO TID PRN PRN Reason: Anxiety Last Admin: 11/25/22 05:20 Dose: 25 mg Documented By: TYSHAWN Dextrose (D10) 250 mls @ 750 mls/hr IV Q15M PRN; Protocol PRN Reason: per Hypoglycemia Standing Ord. Insulin Human Lispro (Insulin Lispro 100 Unit/Ml 3 Ml Vial) 0 unit SUBCUT QIDACHS [facility]; Protocol Last Admin: 11/28/22 07:48 Dose: 2 unit Documented By: RADHA Lidocaine (Lidocaine 4 % Patch Adh..Patch) 1 patch TRANSDERMA DAILY [facility] Last Admin: 11/28/22 08:00 Dose: Not Given Documented By: RADHA Non-Admin Reason: Patient Refused Loperamide HCl (Loperamide Hcl 2 Mg Capsule) 2 mg PO Q4H PRN PRN Reason: Diarrhea Last Admin: 11/13/22 20:57 Dose: 2 mg Documented By: GIAN Lorazepam (Lorazepam 0.5 Mg Tablet) 0.5 mg PO TID PRN PRN Reason: Anxiety Last Admin: 11/27/22 16:23 Dose: 0.5 mg Documented By: RADHA Magnesium Hydroxide (Milk Of Magnesia 30 Ml Oral.Susp) 30 ml PO DAILY PRN PRN Reason: Constipation Melatonin (Melatonin 3 Mg Tablet) 3 mg PO BEDTIME PRN PRN Reason: Insomnia Metformin HCl (Metformin Hcl 1,000 Mg Tablet) 1,000 mg PO DAILY [facility] Last Admin: 11/28/22 07:42 Dose: 1,000 mg Documented By: RADHA Metoprolol Tartrate (Metoprolol Tartrate 100 Mg Tablet) 100 mg PO BID [facility]; Protocol Last Admin: 11/28/22 07:41 Dose: 100 mg Documented By: RADHA Nitroglycerin (Nitroglycerin 0.4 Mg Tab.Subl) 0.4 mg SUBLINGUAL Q5M PRN PRN Reason: Chest Pain Last Admin: 11/15/22 18:29 Dose: 1 tab Documented By: COTEMA Nystatin (Nystatin Powder 15 Gm Bottle) 1 appl TOPICAL BID [facility]; Protocol Last Admin: 11/28/22 08:00 Dose: Not Given Documented By: RADHA Non-Admin Reason: Patient Refused Omeprazole (Omeprazole 20 Mg Capsule.) 20 mg PO DAILY@0630 [facility] Last Admin: 11/28/22 06:44 Dose: 20 mg Documented By: CHELA Ondansetron HCl (Ondansetron Odt 4 Mg Tab.Rapdis) 4 mg TRANSLINGU Q8H PRN PRN Reason: Nausea Oxycodone HCl (Oxycodone Hcl Immed Release 5 Mg Tablet) 5 mg PO Q6H PRN PRN Reason: Pain, Moderate(Pain Scale 4-6) Last Admin: 11/27/22 22:57 Dose: 5 mg Documented By: CHELA Phenytoin Sodium (Phenytoin Sodium Extended 100 Mg Capsule) 200 mg PO DAILY [facility] Last Admin: 11/28/22 07:42 Dose: 200 mg Documented By: RADHA Phenytoin Sodium (Phenytoin Sodium Extended 100 Mg Capsule) 400 mg PO BEDTIME [facility] Last Admin: 11/27/22 22:47 Dose: 400 mg Documented By: CHELA Quetiapine Fumarate (Quetiapine Fumarate 200 Mg Tablet) 200 mg PO BEDTIME [facility] Last Admin: 11/27/22 22:47 Dose: 200 mg Documented By: CHELA Quetiapine Fumarate (Quetiapine Fumarate 100 Mg Tablet) 100 mg PO BEDTIME PRN PRN Reason: Insomnia Last Admin: 11/13/22 23:54 Dose: 100 mg Documented By: GIAN Senna (Sennosides 8.6 Mg Tablet) 8.6 mg PO DAILY [facility] Last Admin: 11/28/22 08:00 Dose: Not Given Documented By: RADHA Non-Admin Reason: Patient Refused Simethicone (Simethicone 80 Mg Tab.Chew) 80 mg PO TID PRN PRN Reason: Indigestion Last Admin: 11/13/22 23:54 Dose: 80 mg Documented By: GIAN Sodium Chloride (0.9 % Sodium Chloride Flush 3 Ml Syringe) 3 ml IVFLUSH QSHIFT [facility] Last Admin: 11/28/22 07:43 Dose: 3 ml Documented By: RADAH Torsemide (Torsemide 20 Mg Tablet) 40 mg PO DAILY [facility]; Protocol Last Admin: 11/28/22 07:41 Dose: 40 mg Documented By: RADHA Trazodone HCl (Trazodone Hcl 50 Mg Tablet) 50 mg PO BEDTIME PRN PRN Reason: Insomnia Labs 11/27/22 06:09 11/28/22 06:34 Labs: Laboratory Results - last 24 hr 11/27/22 11/27/22 11/27/22 11:18 16:16 19:25 Estim Creat Clear Calc Estimated GFR POC Glucose 173 H 132 H 173 H 11/27/22 11/28/22 11/28/22 22:50 06:34 07:27 Estim Creat Clear Calc 145.9 Estimated GFR > 60 POC Glucose 197 H 189 H Assessment and Plan (1) Atelectasis of right lung: Status: Acute (2) Acute heart failure: Status: Acute (3) Osteomyelitis of foot: Status: Acute Plan 62M PMH paroxysmal afib, severe depression, morbid obesity, DM, chronic diastolic chf, gerd, moderate persistent asthma, epilepsy, HTN, history of CVA, presented with chest pain found to have dyspnea # Dyspnea 2/2 RLL Atelactasis improved - CXR showing improvement of the atelectasis - continue chest PT , mucinex, incentive spirometry - CPAP at night, and during naps - he will need outpatient sleep study to get CPAP - cpap at bedtime at SNF - wean O2 down as tolerated # Physical deconditioning - PT rec SNF , CM following # Capacity question evaluated by Psych who deemed with capacity and able to make his own decisions Patient agreeable to go to SNF # Hypotension resolved, resume home meds #Chest pain - cardiology evaluated pt, unlikely cardiac - PRN nitro - continue Eliquis, statin and beta-deysi - troponin negative # acute on chronic diastolic CHF and probable deconditioning - resolved with iv lasix - continue po torsemide - monitor I&O, low sodium diet # acute on chronic anemia - s/p 2 units of prbc - no evident source of bleed, hgb stable - follow cbc # Morbid obesity Weight loss recommended # Paroxysmal atrial fibrillation with rapid ventricular response - controlled - metoprolol increased to 100 mg BID - continue Dilt 240 daily as well as digoxin - Eliquis # active diagnosis?osteomyelitis of right distal 1st phalanx - completed iv vanc, now to be on po doxy - started p.o. doxy on 11/22, will need 30 total days #Diabetes - Insulin, monitor point of care - diabetic diet # GERD PPI # Moderate persistent asthma - No acute exacerbation, bronchodilators as needed # Mood disorder with suicidal ideation - evaluated by Psych earlier in admission, no need for inpatient management - Continue Davi Hurtado - psych consulted for capacity DVT prophylaxis on Eliquis Full code reason for continued hospitalization: discharge planning to SNF pending finalization Time Spent With Patient Time: Total time managing care of this patient today ____ minutes. Quality Stroke Does the patient have a stroke diagnosis?: No VTE Prior VTE?: No VTE Risk Level:: Medical - moderate - high VTE Device Contraindication: Treatment Not Indicated VTE Drug Contraindication: N/A - Med Ordered
[2022-11-28 11:40] LABS: Glucose, Whole Blood 178 mg/dL (60-115)
[2022-11-28] MEDS: oxyCODONE HCl Immed Release 5 MG TABLET PO ×2 (11:53→20:43)
[2022-11-28 15:56] LABS: Glucose, Whole Blood 162 mg/dL (60-115)
[2022-11-28] MEDS: LORazepam 0.5 MG TABLET PO (16:01)
[2022-11-28 20:07] LABS: Glucose, Whole Blood 158 mg/dL (60-115)
[2022-11-28] MEDS: QUEtiapine Fumarate 200 MG TABLET PO (20:42)
[2022-11-28] MEDS: Atorvastatin Calcium 80 MG TABLET PO (20:42)
[2022-11-28] MEDS: Phenytoin Sodium Extended 100 MG CAPSULE 400 MG PO (20:44)
[2022-11-28] MEDS: Nystatin Powder 15 GM BOTTLE 1 APPL TOPICAL (20:51)
[2022-11-28] MEDS: Albuterol Sulfate 90 MCG 8 GM INHALER 2 PUFF INHALE (23:10)
[2022-11-29] MEDS: LORazepam 0.5 MG TABLET PO ×2 (02:48→08:23)
[2022-11-29 03:39] VITALS: BP 114/57; PULSE 70; RESP 20; TEMP 37.6; O2SAT 94
[2022-11-29] MEDS: Omeprazole 20 MG CAPSULE.DR PO (06:47)
[2022-11-29 07:16] LABS: Glucose, Whole Blood 161 mg/dL (60-115)
[2022-11-29 07:17] VITALS: BP 136/74; PULSE 74; RESP 20; TEMP 36.8; O2SAT 95
[2022-11-29] MEDS: ARIPiprazole 10 MG TABLET PO (08:23)
[2022-11-29] MEDS: Phenytoin Sodium Extended 100 MG CAPSULE 200 MG PO (08:23)
[2022-11-29] MEDS: oxyCODONE HCl Immed Release 5 MG TABLET PO (08:23)
[2022-11-29] MEDS: Doxycycline Monohydrate 100 MG CAPSULE PO (08:23)
[2022-11-29] MEDS: dilTIAZem HCL CD 240 MG CAP.ER.DEG PO (08:23)
[2022-11-29] MEDS: Gabapentin 100 MG CAPSULE 200 MG PO (08:24)
[2022-11-29] MEDS: metFORMIN HCl 1,000 MG TABLET 1000 MG PO (08:24)
[2022-11-29] MEDS: Digoxin 0.125 MG TABLET PO (08:24)
[2022-11-29] MEDS: Torsemide 20 MG TABLET 40 MG PO (08:24)
[2022-11-29] MEDS: DULoxetine HCl 60 MG CAPSULE.DR PO (08:24)
[2022-11-29] MEDS: Apixaban 5 MG TABLET PO (08:24)
[2022-11-29] MEDS: Metoprolol Tartrate 100 MG TABLET PO (08:24)
[2022-11-29] MEDS: Insulin Lispro 100 UNIT/ML 3 ML VIAL SUBCUT ×2 (08:25→12:00)
[2022-11-29] MEDS: guaiFENesin LA 600 MG TAB.ER.12H PO (08:25)
[2022-11-29] MEDS: 0.9 % Sodium Chloride Flush 3 ML SYRINGE IVFLUSH (08:25)
[2022-11-29] MEDS: Nystatin Powder 15 GM BOTTLE 1 APPL TOPICAL (08:26)
[2022-11-29] MEDS: Fluticasone Propionate Nasal 16 GM SPRAY 1 SPRAY NOSTRIL-B (08:27)
[2022-11-29 09:00] VITALS: O2SAT 95
--- NOTE | 2022-11-29 09:42 | MHC.CM.PN ---
Patient has been medically cleared for dc to SNF/STR today. Patient will dc to [facility] today at 1 PM via [facility]. Patient and his Son/Zach @ [phone] are aware of and in agreement with the dc plan.
--- NOTE | 2022-11-29 10:45 | PM.DS ---
DS: Providers Provider Date of Service: 11/29/22 Date of admission: 11/12/22 16:13 Primary care physician: Brown Parada MD Consults: 11/12/22 16:15 Consult to Cardiology Routine Consulting Provider: [facility] [place] Cardiovascular Services Reason for consultation: chf, chest pain Has provider been notified: Yes 11/21/22 07:39 Consult to Care Team Routine Comment: Reason for consultation: Medically clear, for psych placement if needed. 11/26/22 10:09 Consult to Psychiatry Routine Consulting Provider: Psych Covering Reason for consultation: discharge planning, capacity in ? Has provider been notified: No DS: Diagnosis Discharge Diagnosis (1) Atelectasis of right lung: Status: Acute (2) Acute heart failure: Status: Acute (3) Osteomyelitis of foot: Status: Acute (4) Acute on chronic anemia: Status: Acute (5) Dyspnea: Status: Acute (6) Atrial fibrillation with rapid ventricular response: Status: Acute (7) Physical deconditioning: Status: Acute (8) Chronic diabetic ulcer of foot determined by examination: Status: Acute DS: Summary Hospital Course Hospital Course: The patient had prolonged hospital stay. for full details please return to EMR. Admission note HPI 62M PMH paroxysmal afib, severe depression, chronic pain on opiates, morbid obesity, DM, chronic diastolic chf, gerd, moderate persistent asthma, epilepsy, HTN, history of CVA, presented with chest pain.? Patient was in inpatient [facility] for suicidal ideation.? Rapid response was called for complaints of chest pressure and shortness of breath.? Patient states that chest pain is 10 out 10, midsternal, pressure, radiating to left arm, similar to previous and since as though more extreme.? Associated with shortness of breath, denies coronary history.? Was given nitro sublingual with slight decrease in pain to 8/10.? EKG showed AFib with RVR, right bundle anthony block, no obvious acute ischemic changes. Hospital course - Evaluated for Chest pain by cardiology team who believed it is unlikely cardiac with negative trop I and EKG changes and advised to continue his home medications. he did not require any NTG and did not have the chest pain again during the hospital stay. on Eliquis and statin and beta-deysi. - Treated for acute on chronic diastolic CHF and probable deconditioning with IV lasix with good response. restarted back on Torsemide home dose. weaned down O2 to 3-4L. continue to wean down as tolerated. - Developed Dyspnea 2/2 RLL Atelactasis. improved by chest PT , mucinex, incentive spirometry. CPAP at night, advised to wear with naps as well. - Physical deconditioning, evaluated by PT who recommended rehab placement. - acute on chronic anemia likely 2/2 iron deficiency, inflammatory. transfused 2 units prbc with good response and remained stable. - Morbid obesity, Weight loss recommended - Paroxysmal atrial fibrillation with rapid ventricular response, controlled with increased the dosage of metoprolol to 100mg bid and diltiazem increased to 240mg daily. with addition of po dig 0.125 daily. Eliquis as blood thinner. to follow with cardiology as outpatient. - Mood disorder with suicidal ideation. Medications adjusted as noted in med list. evaluated by care team who cleared him to discharge as no need for inpatient psych. can be followed as outpatient. - Was on active treatment for osteomyelitis of right distal 1st phalanx. Finished IV vancomycin until November 21, 2022. PICC line was removed. He will need PO Doxycycline for 1 more month. Discharge plan: Start physical therapy Use CPAP nighttime and during naps Continue Doxycycline as prescribed Increase Metoprolol and Cardizem as prescribed To follow up with cardiology as outpatient The patient will likely need less than 30 days in SNF facility. Time Spent with Patient Time attestation: Total time managing care of this patient today ____ minutes. Discharge coordination time: Greater than 30 minutes Quality: Safe Use of Opioids Does Pt have an Active Cancer Diagnosis on the Problem List?: No Quality: Stroke Does the patient have a stroke diagnosis?: No Physical Exam Vital Signs: Vital Signs: Last Vital Signs Temp 98.2 F 11/29/22 07:17 Pulse 74 11/29/22 07:17 Resp 20 11/29/22 07:17 BP 136/74 11/29/22 07:17 Pulse Ox 95 11/29/22 09:00 O2 Del Method Nasal Cannula 11/29/22 07:17 O2 Flow Rate 2 11/29/22 07:17 BMI result Body Mass Index 45.1 Const: Other: Constitutional : Awake with stimulation, interactive, not in distress Neck : Normal inspection, Supple Cardiovascular : RRR, no JVP, no lower extremity edema Respiratory : fair bilateral air improved on the right base, no crackles, no wheezes , on 3-4L O2 Gastrointestinal: soft, lax, Normal bowel sounds, Non tender Skin : Warm, Dry Neurological : Alert & oriented x3, No focal deficit DS: Data Data Completed and Pending Completed studies during hospitalization [Text1]: Procedures Insertion of Infusion Device into Right Basilic Vein, Percutaneous Approach (07/30/22) Insertion of Infusion Device into Superior Vena Cava, Percutaneous Approach (10/04/22) Ultrasonography of Superior Vena Cava, Guidance (10/04/22) Labs on day of discharge: Laboratory Results - last 24 hr 11/28/22 11/28/22 11/28/22 11:28 15:53 20:04 POC Glucose 178 H 162 H 158 H 11/29/22 07:13 POC Glucose 161 H Imaging Chest x-ray: Radiologist's impression: ITS Impressions Chest X-Ray 11/12/22 16:38 IMPRESSION: No evidence for acute disease in the chest. Chest X-Ray 11/19/22 08:32 IMPRESSION: Increasing volume loss to the right hemithorax, atelectasis/consolidation of the right lung and small right pleural effusion. Follow-up chest x-ray following respiratory treatment recommended. Findings will be communicated by the [place] work flow optical model maker and tester. Chest X-Ray 11/20/22 08:21 IMPRESSION: 1. Hypoexpanded right lung with elevated right hemidiaphragm and right lower lobe atelectasis. 2. The left lung is clear. Chest X-Ray 11/23/22 14:28 IMPRESSION: Partial interval improvement in right lower lobe opacity. Discharge Plan Discharge Anticipated Discharge Date/Time: 11/25/22 10:59 Patient Disposition: er SNF Discharge Diagnosis: Atrial fibrillation with rapid response physical deconditioning Heart failure exacerbation Acute on chronic anemia Referrals: [facility] [Outside] - 1 Week Brown Parada MD [Primary Care Provider] - 1 Week Discharge Medications: New metoprolol tartrate 100 mg Tablet 100 mg PO BID Qty: 30 0RF Protocol: Hold for SBP/HR < HOLD for SBP < : 90 HOLD for HR < : 60 diltiazem HCl 240 mg Capsule,Extended Release 24hr 240 mg PO DAILY Qty: 30 0RF Protocol: Hold for SBP/HR < HOLD for SBP < : 90 HOLD for HR < : 60 quetiapine 200 mg Tablet 200 mg PO BEDTIME Qty: 30 0RF lorazepam 0.5 mg Tablet 0.5 mg PO TID PRN (Reason: Anxiety) Qty: 30 0RF doxycycline monohydrate 100 mg Capsule 100 mg PO Q12H 27 Days Qty: 54 0RF digoxin 125 mcg (0.125 mg) Tablet 0.125 mg PO DAILY Qty: 30 0RF gabapentin 100 mg Capsule 200 mg PO QID Qty: 120 0RF oxycodone 5 mg Tablet 5 mg PO Q6H PRN (Reason: Pain, Moderate(Pain Scale 4-6)) Qty: 30 0RF Rx Instructions: Partial Fill upon patient request. aripiprazole 10 mg Tablet 10 mg PO DAILY Qty: 30 0RF guaifenesin [Mucinex] 600 mg Tablet Extended Release 12hr 600 mg PO BID Qty: 20 0RF Continued trazodone 50 mg tablet 1 tab PO BEDTIME phenytoin sodium extended 100 mg capsule 200 mg PO DAILY pantoprazole 40 mg tablet,delayed release (DR/EC) 1 tab PO DAILY@0630 metformin 1,000 mg tablet 1 tab PO DAILY hydroxyzine HCl 25 mg tablet 1 tab PO TID PRN (Reason: Anxiety) oxycodone 5 mg tablet 1 tab PO TID PRN (Reason: Pain) Eliquis 5 mg tablet 1 tab PO BID atorvastatin 80 mg tablet 1 tab PO DAILY torsemide 20 mg tablet 1 tab PO DAILY phenytoin sodium extended 100 mg capsule 400 mg PO BEDTIME quetiapine 100 mg tablet 1 tab PO BEDTIME PRN (Reason: Insomnia) acetaminophen 500 mg Tablet 1,000 mg PO BID PRN (Reason: Pain) albuterol sulfate [ProAir HFA] 90 mcg/actuation Hfa Aerosol Inhaler 2 puff INHALATION Q4-6H PRN (Reason: Shortness Of Breath) fluticasone propionate 50 mcg/actuation [place],Suspension 1 spray INTRANASAL BID Rx Instructions: administer into each nostril insulin lispro 100 unit/mL insulin pen 2 - 10 unit subcut TIDAC duloxetine 30 mg capsule,delayed release(DR/EC) 60 mg PO BID ferrous sulfate 324 mg (65 mg iron) Tablet,Delayed Release (Dr/Ec) 324 mg PO DIRECTED Rx Instructions: take 1 tab every Tuesday, Tuesday, Tuesday sennosides [senna] 8.6 mg Tablet 8.6 mg PO DAILY melatonin 3 mg Tablet 3 mg PO BEDTIME PRN (Reason: Insomnia) lidocaine 5 % Adhesive Patch,Medicated 1 patch TOPICAL DAILY Rx Instructions: leave on most painful area for up to 12 hrs nitroglycerin 0.4 mg Tablet, Sublingual 0.4 mg SUBLINGUAL Q5M PRN (Reason: Chest Pain) Rx Instructions: do not exceed 3 doses per episode nystatin 100,000 unit/gram Powder 1 appl TOPICAL BID ondansetron 4 mg Tablet,Disintegrating 4 mg PO Q6H PRN (Reason: Nausea) calamine Lotion See Rx Instructions .ROUTE .COMPLEX Rx Instructions: Apply to affected area topically, 2 times daily simethicone 80 mg Tablet 80 mg PO TID PRN (Reason: Indigestion) Discontinued lorazepam 2 mg tablet 1 tab PO TID PRN (Reason: Anxiety) gabapentin 400 mg capsule 1 cap PO 5XD quetiapine 200 mg tablet 1 tab PO BID diltiazem HCl 120 mg Capsule,Extended Release 24 Hr 120 mg PO DAILY@11 aripiprazole 5 mg Tablet 7.5 mg PO DAILY metoprolol succinate 25 mg tablet extended release 24 hr 75 mg PO DAILY Protocol: Hold for SBP/HR < HOLD for SBP < : 90 HOLD for HR < : 60 Discharge Orders: Discharge Order (Routine); Ordered 11/29/22 Ordered By: Giselle Butterfield Diet: Diabetic diet Activity on Discharge: As tolerated Stand Alone Forms: Patient Portal Discharge page Care Plan Goals: Read below Health Concerns: Read below Plan of Treatment: Read below Assessment: You were admitted to the hospital for treatment of rapid heart rate and evidence of heart failure responded well to treatment with water pills and rate control medications. We adjusted your pysch medications based on psychiatry recommendations with good response. You have finished the IV antibiotics treatment. To continue oral treatment. Start physical therapy Use CPAP nighttime and during naps Continue Doxycycline as prescribed Increase Metoprolol and Cardizem as prescribed To follow up with cardiology as outpatient
[2022-11-29 11:40] LABS: Glucose, Whole Blood 221 mg/dL (60-115)
[2022-11-29 12:00] VITALS: BP 122/69; PULSE 80; RESP 20; TEMP 36.6; O2SAT 95
== END 2022-11-29 13:16 | disposition skilled nursing facility (03) | DRG 201 ==
PROVIDERS: Internal Medicine; Student in an Organized Health Care Education/Training Program; Admitting Provider Internal Medicine; PCP Family Medicine; Visit Provider Student in an Organized Health Care Education/Training Program
DX: I48.0 Paroxysmal atrial fibrillation (principal); I50.33 Acute on chronic diastolic (congestive) heart failure; R45.851 Suicidal ideations; E11.69 Type 2 diabetes mellitus with other specified complication; E11.621 Type 2 diabetes mellitus with foot ulcer; M86.9 Osteomyelitis, unspecified; I95.9 Hypotension, unspecified; L97.519 Non-pressure chronic ulcer of other part of right foot with unspecified severity; D50.9 Iron deficiency anemia, unspecified; I11.0 Hypertensive heart disease with heart failure; E66.01 Morbid (severe) obesity due to excess calories; E86.0 Dehydration; J98.11 Atelectasis; I25.10 Atherosclerotic heart disease of native coronary artery without angina pectoris; F43.10 Post-traumatic stress disorder, unspecified; Z91.040 Latex allergy status; E87.6 Hypokalemia; F39 Unspecified mood [affective] disorder; Z68.42 Body mass index [BMI] 45.0-49.9, adult; J45.40 Moderate persistent asthma, uncomplicated; G40.909 Epilepsy, unspecified, not intractable, without status epilepticus; Z86.73 Personal history of transient ischemic attack (TIA), and cerebral infarction without residual deficits; Z79.4 Long term (current) use of insulin; Z79.51 Long term (current) use of inhaled steroids; Z79.899 Other long term (current) drug therapy
CPT/HCPCS: 36415; 71045; 80048; 80076; 80202; 82565; 82947; 83605; 83735; 84484; 85025; 85027; 86850; 86900; 86901; 86923; 93005; 94640; 94660; 97110; 97116; 97162; 97165; 97530; 97535; J1160; J1940; J2270; J3370; P9016; S9485